=== PATIENT | female | born 1970 | race Caucasian/White ===

== ENCOUNTER → 2017-02-15 | Outpatient (CLI) | payer MEDICARE, MEDICAID, SELFPAY | PROVIDERS: Visit Provider Internal Medicine | DX: E11.51 Type 2 diabetes mellitus with diabetic peripheral angiopathy without gangrene (principal); E11.42 Type 2 diabetes mellitus with diabetic polyneuropathy; I10 Essential (primary) hypertension; I25.10 Atherosclerotic heart disease of native coronary artery without angina pectoris; N18.3 Chronic kidney disease, stage 3 (moderate); R60.1 Generalized edema | CPT/HCPCS: 36415; 80053; 80061; 81001; 83036; 87086 ==

== ENCOUNTER → 2017-08-05 | Outpatient (CLI) | payer MEDICARE, MEDICAID, SELFPAY | PROVIDERS: Visit Provider Internal Medicine | DX: I10 Essential (primary) hypertension (principal); E78.5 Hyperlipidemia, unspecified; N18.3 Chronic kidney disease, stage 3 (moderate); M54.2 Cervicalgia; R10.13 Epigastric pain | CPT/HCPCS: 36415; 72050; 80053; 80061; 82150; 83036; 85025 ==

== ENCOUNTER 2017-08-06 04:45 | Emergency (ER) | payer MEDICARE, MEDICAID, SELFPAY | END 2017-08-06 07:04 | disposition home or self-care (01) | PROVIDERS: Emergency Provider Emergency Medicine; Family Provider Internal Medicine; Visit Provider Emergency Medicine | DX: K29.00 Acute gastritis without bleeding (principal); N28.9 Disorder of kidney and ureter, unspecified; F17.210 Nicotine dependence, cigarettes, uncomplicated; E11.65 Type 2 diabetes mellitus with hyperglycemia; Z79.4 Long term (current) use of insulin; Z79.84 Long term (current) use of oral hypoglycemic drugs; I10 Essential (primary) hypertension; Z88.1 Allergy status to other antibiotic agents | CPT/HCPCS: 74176; 80053; 82150; 83605; 83690; 84484; 85025; 96360; 96365; 96374; 96375; 99284 ==

== ENCOUNTER → 2017-09-28 15:11 | Outpatient (CLI) | payer MEDICAID, SELFPAY ==
[2017-09-28 15:26] LABS: Microscopic, Urine URINE MICROSCOPIC (MICROSCOPIC)
[2017-09-28 15:42] LABS: Appearance,Urine CLEAR (Clear); Bilirubin,Urine Negative (Negative); Blood, Urine Negative (Negative); Color,Urine STRAW (Yellow); Glucose,Urine (UA) TRACE (Negative); Ketones,Urine Negative (Negative); Leukocyte Esterase,Urine Negative (Negative); Nitrate,Urine Negative (Negative); PH,Urine 5.5 (5.0-8.5); Protein,Urine 2+ (Negative); Specific Gravity, Urine 1.025 (1.005-1.030); Urobilinogen,Urine 0.2 EU/dl (0.2)
[2017-09-28 15:46] LABS: Basophils # 0.1 K/mm3 (0-0.2); Basophils % 1.1 % (0.1-2.0); Eosinophils # 0.2 K/mm3 (0.0-0.4); Eosinophils % 3.3 % (0.1-12.0); Hematocrit 33.6 % (37.0-47.0); Hemoglobin 10.7 g/dL (12.2-16.2); Lymphocytes # 1.6 K/mm3 (0.7-4.5); Lymphocytes % 33.1 K/mm3 (10-50); Mean Corpuscular HGB Conc 31.7 g/dL (31.8-35.4); Mean Corpuscular Hemoglobin 27.2 pg (27.0-31.2); Mean Corpuscular Volume 85.8 fl (81-99); Mean Platelet Volume 8.1 fl (7.4-10.4); Monocytes # 0.4 K/mm3 (0.1-1.0); Monocytes % 7.7 % (1.7-9.3); Neutrophils # 2.7 K/mm3 (1.8-7.8); Neutrophils % 54.7 % (37.0-80.0); Platelet Count 198 K/mm3 (142-424); Red Blood Count 3.92 M/mm3 (4.20-5.40); Red Cell Distribution Width 13.4 % (11.5-17.5); White Blood Count 4.9 K/mm3 (4.8-10.8)
[2017-09-28 16:39] LABS: Bacteria,Urine 2+ /lpf; Hyaline Casts,Urine Occasional #/lpf (0); Squamous Epithelial Cell,Urine 20-50 #/hpf (0-5); WBC,Urine Occasional #/hpf (0-3)
[2017-09-28 16:46] LABS: Total Protein,Urine Random 187.8 mg/dL (0.0-11.9)
[2017-09-28 17:20] LABS: Albumin Level 3.3 gm/dL (3.4-5.0); Anion Gap 17.5 mEq/L (5-15); Blood Urea Nitrogen 57 mg/dL (7-18); Calcium 8.5 mg/dL (8.5-10.1); Carbon Dioxide 18 mmol/L (21.0-32.0); Chloride 102 mmol/L (98-107); Creatinine,Serum 2.62 mg/dL (0.55-1.02); Estimated Glomerular Filt Rate 19 ml/min (>60); GFR (African American) 24 ML/MIN (>60); Glucose 296 mg/dL (74-106); Phosphorous 3.7 mg/dL (2.4-4.9); Potassium 5.5 mmoL/L (3.5-5.1); Sodium 132 mmol/L (136-145); Uric Acid 5.5 mg/dL (2.6-7.2)
[2017-09-30 09:17] LABS: Creatinine, Urine 109.1 mg/dL (Not Estab.)
[2017-09-30 17:02] LABS: Parathyroid Hormone Intact 42 pg/mL (15-65); Vitamin D 25 Hydroxy 31.4 ng/mL (30.0-100.0)
[2017-09-30 17:03] LABS: Microalbumin, Urine 1083.9 ug/mL (Not Estab.)
== END ==
PROVIDERS: PCP Internal Medicine Nephrology; Visit Provider Internal Medicine Nephrology
DX: N18.4 Chronic kidney disease, stage 4 (severe) (principal)
CPT/HCPCS: 36415; 80069; 81001; 82043; 82652; 83970; 84155; 84550; 85025; 87086

== ENCOUNTER → 2018-02-14 10:35 | Outpatient (CLI) | payer SELFPAY ==
[2018-02-14 12:31] LABS: Anion Gap 16.5 mEq/L (5-15); Blood Urea Nitrogen 62 mg/dL (7-18); Carbon Dioxide 26 mmol/L (21.0-32.0); Chloride 100 mmol/L (98-107); Creatinine,Serum 2.51 mg/dL (0.55-1.02); Estimated Glomerular Filt Rate 20 ml/min (>60); GFR (African American) 25 ML/MIN (>60); Glucose 200 mg/dL (74-106); Potassium 4.5 mmoL/L (3.5-5.1); Sodium 138 mmol/L (136-145)
== END ==
PROVIDERS: Visit Provider Internal Medicine
DX: E11.42 Type 2 diabetes mellitus with diabetic polyneuropathy (principal); E11.52 Type 2 diabetes mellitus with diabetic peripheral angiopathy with gangrene; N18.4 Chronic kidney disease, stage 4 (severe)
CPT/HCPCS: 36415; 80048; 83036

== ENCOUNTER 2024-01-24 05:51 | Emergency (ER) | payer OTHER, SELFPAY ==
[2024-01-24 05:52] VITALS: BP 167/81; PULSE 61; RESP 16; TEMP 36.6; O2SAT 98; BMI 20.7
--- NOTE | 2024-01-24 05:54 | HMH.EDGENADL ---
Discharge Plan Disposition Patient Disposition: Home, Self-Care Prescriptions Prescriptions: New clindamycin HCl 150 mg capsule 450 mg PO TID 7 Days Qty: 63 0RF Referrals Follow up/Referrals: Provider,Referral, MD [Primary Care Provider] - See instructions Activity Restrictions/Add. Instructions Additional Instructions/Restrictions: Please follow-up with your primary care provider and with dentistry. Take antibiotics as prescribed for treatment of possible dental infection. Please return to the emergency department if you develop any new or worsening symptoms or become concerned for your health. Clinical Impressions Clinical Impression: Dental infection, Acute facial pain, HTN (hypertension) Discharge ED Provider: Aman Lee General Adult HPI General Chief complaint: Dental/Oral Time Seen by Provider: 01/24/24 05:54 History of Present Illness HPI narrative: 53-year-old female with history of end-stage renal disease, diabetes, heart disease, chronic hypertension presents with worsening hypertension in the setting of dental pain. She reports that her right lower jaw/ear have been bothering her for the last 2 days. At the same time, her blood pressure has been higher and has not been coming down with her normal blood pressure medications. She has not taken her BP meds this morning, when she left the house she reports her blood pressure was in the 180s systolic, normally they are more like in the 140s for her. She denies any significant headache vision changes chest pain or shortness of breath. She is on Tuesday dialysis, has not yet had her dialysis today. Related Data Previous Rx's Medication Instructions Recorded clindamycin HCl 150 mg capsule 450 mg (3 x 150 mg) PO TID 7 days 01/24/24 #63 caps Allergies Allergy/AdvReac Type Severity Reaction Status Date / Time ciprofloxacin [From CIPRO] Allergy Intermediate I-RASH Unverified 09/06/17 14:59 lisinopril [LISINOPRIL] Allergy Intermediate I-ITCHING Unverified 09/06/17 14:59 morphine [MORPHINE] Allergy Intermediate I-ITCHING Unverified 09/06/17 14:59 [facility] Disclaimer: The information contained in this section may have been updated after the patient was seen, as this information can be updated by other users. Social History Smoking Status: Current every day smoker alcohol intake: never current occupational status: other Travel in the last 8 weeks: None ROS Obtained: Yes All systems reviewed & no additional complaints except as documented Physical Exam General General appearance: alert and in no apparent distress Head Head exam: atraumatic and normocephalic Eye Eye exam: Present normal appearance, PERRL and EOMI ENT ENT exam: Present normal oropharynx, TM's normal bilaterally, normal external ear exam and other (Posterior most right mandibular molar appears eroded, no surrounding fluctuance or significant erythema, it is tender to palpation) Neck Neck exam: Present normal inspection and full ROM Chest Chest inspection: Present normal inspection and symmetric chest wall rise; Absent tenderness Respiratory Respiratory exam: Present normal lung sounds bilaterally; Absent respiratory distress Cardiovascular Cardiovascular exam: Present regular rate and normal rhythm Abdominal Exam Abdominal exam: Present soft; Absent distention, tenderness or guarding Extremities Exam Extremities exam: Present normal inspection and other (Left upper extremity AV fistula); Absent edema or joint swelling Back Exam Back exam: Present normal inspection; Absent tenderness Neurological Exam Neurological exam: Present alert and oriented X3; Absent motor sensory deficit Psychiatric Psychiatric exam: Present normal affect and normal mood Skin Skin exam: Present warm, dry and normal color Lymphatic Lymphatic Findings: no adenopathy Medical Decision Making Medical Records Medical records reviewed: Yes I reviewed the patient's medical records. Skyler Inquiry Pt receiving controlled substance: No Skyler was queried for this patient: No Vital Signs: 01/24/24 05:52 01/24/24 06:25 Temperature 97.9 F 97.9 F Temperature Source Oral Oral Pulse Rate 62 Pulse Rate [Left] 61 Respiratory Rate 16 16 Blood Pressure 168/74 H Blood Pressure [Right Arm] 167/81 H Blood Pressure Mean [Right Arm] 109 Blood Pressure Source Automatic Cuff Blood Pressure Source [Right Arm] Automatic Cuff Blood Pressure Position Sitting Blood Pressure Position [Right Arm] Sitting 02 Sat by Pulse Oximetry 98 Oxygen Delivery Method Room Air Room Air Lab Data Lab results reviewed: Yes I reviewed the patient's lab results. Orders (Tests/Meds): ED MEDICATIONS Discontinued Medications Generic Name Dose Route Start Last Admin Trade Name Freq PRN Reason Stop Dose Admin Clindamycin HCl 300 mg 01/24/24 06:14 01/24/24 06:20 Clindamycin 150mg Capsule PO 01/24/24 06:15 300 mg ONCE ONE Administration Medical Decision Narrative: 53-year-old female with history of end-stage renal disease on TTS, chronic hypertension, diabetes, coronary artery disease presents with right mandibular facial pain for the last few days, coincides with worsening blood pressure at home.. History was obtained interactive discussion with patient, family. On arrival, patient is [afebrile, hemodynamically stable, satting appropriately, alert, oriented x4, GCS 15], moving all extremities spontaneously. Full physical exam performed and significant for right posterior mandibular molar tender to palpation without surrounding evidence of abscess or cellulitis, blood pressure in the 160s systolic on arrival. Differential includes but is not limited to hypertensive urgency, hypertensive emergency, chronic hypertension, dental infection, ear infection,. Blood work, EKG, CT head, urine studies were considered in the setting of reported severe hypertension, but deemed unnecessary due to mild asymptomatic hypertension on arrival. Given patient history, exam and workup, patient's presentation most likely represents a developing dental infection, with the resulting pain producing worsening hypertension. I had extensive discussion with patient regarding her presentation. No indication of emergent hypertension at this time. Patient was given clindamycin in the ED for treatment of likely dental infection, she will follow-up with her PCP and with dentistry. Patient discharged with prescription for clindamycin. She will pick it up after going to dialysis today. Procedures Risk/Benefits of Procedure(s) Were Explained: Yes Critical Care Critical Care Time Critical Care Time: No
--- NOTE | 2024-01-24 06:04 | ECG_ITS ---
APPROVED REPORT Exam: Resting ECG HR:57 bpm ECG Measurements Heart Rate 57 AXES AZ 142 P 35 QRSd 114 QRS 122 QT 450 T -2 QTc 443 Conclusion SINUS BRADYCARDIA WITH OCCASIONAL VENTRICULAR PREMATURE COMPLEXES POSSIBLE RIGHT VENTRICULAR HYPERTROPHY [SOME/ALL OF: PROMINENT R IN V1, LATE TRANSITION, RAD, TONY, SSS] NONSPECIFIC T-WAVE ABNORMALITY ABNORMAL ECG UNCONFIRMED REPORT Electronically signed by : LARISSA EDWARDS, 01/25/2024 05:19:31
[2024-01-24] MEDS: CLINDAMYCIN 150MG CAPSULE 300 MG PO (06:20)
[2024-01-24 06:25] VITALS: BP 168/74; PULSE 62; RESP 16; TEMP 36.6; O2SAT 98
== END 2024-01-24 06:16 | disposition home or self-care (01) ==
LOC: ER 06:17
PROVIDERS: Emergency Provider Emergency Medicine
DX: K04.7 Periapical abscess without sinus (principal); I10 Essential (primary) hypertension; R94.31 Abnormal electrocardiogram [ECG] [EKG]; R68.84 Jaw pain; F17.210 Nicotine dependence, cigarettes, uncomplicated
CPT/HCPCS: 93005; 99283

== ENCOUNTER 2024-02-02 10:15 | Emergency (ER) | payer OTHER, MEDICAID, SELFPAY ==
[2024-02-02] VITALS (15 sets, daily range): BP systolic 177–197; BP diastolic 68–93; PULSE 52–70; RESP 11–21; TEMP 36.6–36.7; O2SAT 91–98; BMI 20.5
--- NOTE | 2024-02-02 10:19 | PC.NURSE ---
PT WAS GIVEN A WARM BLANKET
--- NOTE | 2024-02-02 10:21 | ECG_ITS ---
APPROVED REPORT Exam: Resting ECG HR:56 bpm ECG Measurements Heart Rate 56 AXES TN 137 P 71 QRSd 118 QRS 97 QT 434 T -42 QTc 425 Conclusion SINUS BRADYCARDIA BORDERLINE RIGHT AXIS DEVIATION [QRS AXIS > 90] MODERATE INTRAVENTRICULAR CONDUCTION DELAY [110+ ms QRS DURATION] ST DEVIATION AND MODERATE T-WAVE ABNORMALITY, CONSIDER INFERIOR ISCHEMIA [-0.1+ mV T-WAVE IN II/aVF] Electronically signed by : SERVANDO WEINSTEIN, 02/02/2024 15:44:43
--- NOTE | 2024-02-02 10:22 | XR_ITS ---
FINAL REPORT CLINICAL HISTORY: chest pain, soa FINDINGS: A single portable view of the chest was obtained. There is cardiomegaly. The patient is status post median sternotomy. There is mild pulmonary vascular congestion. There are bibasilar opacities which may represent atelectasis or pneumonia. Small bilateral pleural effusions are noted. There is no pneumothorax. IMPRESSION: Bibasilar opacities may represent atelectasis or pneumonia with small bilateral pleural effusions. Reviewed, Interpreted and Dictated by Romaine Gonzales III, MD Transcribed by Bouchra Nguyễn Authenticated and [facility]
--- NOTE | 2024-02-02 10:36 | HMH.EDCP ---
Discharge Plan Disposition Patient Disposition: Xfer Short-Term Hosp Condition: Fair Prescriptions Prescriptions: No Action clindamycin HCl 150 mg capsule 450 mg PO TID 7 Days Qty: 63 0RF Referrals Follow up/Referrals: Provider,Referral, MD [Primary Care Provider] - See instructions Clinical Impressions Clinical Impression: Hypertensive urgency, Acute hypokalemia Stand Alone Forms Stand Alone Forms: Transfer Record - ED Discharge ED Provider: Matt Hooks HPI General Chief Complaint: Chest Pain Stated Complaint: chest pain Time Seen by Provider: 02/02/24 10:22 Mode of Arrival: Wheelchair Source of Information: Patient and Spouse Limitations: No Limitations Description of Symptoms (Recalled from ER Triage Doc. by RN): chest pressure x3 days. dialysis pt. History of Present Illness HPI narrative: 53-year-old female history of hypertension, hyperlipidemia, diabetes, ESRD on Tuesday dialysis, CAD status post stenting presenting with chest pressure. States that this been going on for couple of days at this point, no fevers, chills, nausea, vomiting, diaphoresis, but she is feeling short of breath. No PND or orthopnea. No worsening lower extremity swelling. States that she has had pleural effusion drained a couple times in the past, unsure if that is related. Chest pressure does not radiate, not made better or worse by anything in particular. Last got dialysis today, 02/01 and had full session without issue. Has not taken any of her medications including beta-katy, calcium channel katy, hydralazine, among others. Please note that above description of symptoms, in this electronic medical record under categorization of recalled from ER triage doctor by RN are reflective of an initial nursing assessment, however, is not reflective of my full history and physical exam that was personally taken and clarified. Consequentially, this preceding description of symptoms, which may include the patient's categorized chief complaint in the EMR, do not reflect my personal clinical impression, and the ultimate description of history of present illness and patient stated complaints should be deferred to this section of the note. Unless stated otherwise or congruent with this section of the note, additional signs, symptoms, or incongruence should be interpreted as inaccurate with my clinical impression. Related Data Previous Rx's Medication Instructions Recorded clindamycin HCl 150 mg capsule 450 mg (3 x 150 mg) PO TID 7 days 01/24/24 #63 caps Allergies Allergy/AdvReac Type Severity Reaction Status Date / Time insulin glargine Allergy Intermediate Numbness Verified 02/02/24 10:40 [From Elsa Macario U-100 Insulin] lisinopril [LISINOPRIL] Allergy Intermediate I-ITCHING Verified 02/02/24 10:39 [facility] Disclaimer: The information contained in this section may have been updated after the patient was seen, as this information can be updated by other users. Social History (Updated 01/24/24 @ 06:40 by Aman Lee MD) Smoking Status: Current every day smoker alcohol intake: never current occupational status: other Travel in the last 8 weeks: None ROS Obtained: Yes All systems reviewed & no additional complaints except as documented Physical Exam General General appearance: alert Neck Neck exam: Present trachea midline Chest Chest inspection: Present normal inspection and symmetric chest wall rise Respiratory Respiratory exam: Present normal lung sounds bilaterally; Absent respiratory distress, wheezes, stridor, accessory muscle use or prolonged expiratory phase Cardiovascular Cardiovascular exam: Present regular rate, normal rhythm and systolic murmur Extremities Exam Extremities exam: Absent edema Neurological Exam Neurological exam: Present alert, oriented X3 and CN II-XII intact Skin Skin exam: Present warm and dry; Absent cyanosis, diaphoresis or pallor HEART Score HEART Score HEART Score assessment performed?: Yes HEART Score: 3 Procedures Limited Ultrasound Indication:: Limited cardiac ultrasound Indication: Chest pressure Identified cardiac views: -Cardiac parasternal long axis -Cardiac parasternal short axis Findings: -Cardiac activity present -Gross wall motion normal -Pericardial effusion absent -Right heart strain absent Impression: -Normal cardiac ultrasound with EPSS 3 mm Images were saved to permanent archive The study was technically adequate CPT: 37940 This study was performed by me, and I personally interpreted all images/videos. Based on my clinical judgement, these images were adequate and did not necessitate further imaging. Critical Care Critical Care Time Critical Care Time: No Medical Decision Making Medical Records Medical records reviewed: Yes I reviewed the patient's medical records. Skyler Inquiry Pt receiving controlled substance: No Skyler was queried for this patient: No Vital Signs Vital Signs: 02/02/24 10:16 02/02/24 10:23 02/02/24 10:29 Temperature 97.9 F Temperature Source Oral Pulse Rate 59 L 58 L Pulse Rate [Right] 66 Respiratory Rate 18 13 12 Blood Pressure 195/77 H 196/80 H Blood Pressure [Right Arm] 197/77 H Blood Pressure Mean [Right Arm] 117 02 Sat by Pulse Oximetry 94 L 96 97 Oxygen Delivery Method Room Air Room Air Room Air 02/02/24 10:46 02/02/24 10:55 02/02/24 11:00 Temperature Temperature Source Pulse Rate 59 L 60 62 Pulse Rate [Right] Respiratory Rate 15 16 18 Blood Pressure 197/79 H 193/77 H 191/78 H Blood Pressure [Right Arm] Blood Pressure Mean [Right Arm] 02 Sat by Pulse Oximetry 96 96 96 Oxygen Delivery Method Room Air Room Air Room Air 02/02/24 11:30 02/02/24 12:00 02/02/24 12:30 Temperature Temperature Source Pulse Rate 65 65 70 Pulse Rate [Right] Respiratory Rate 19 17 17 Blood Pressure 187/93 H 190/79 H 186/80 H Blood Pressure [Right Arm] Blood Pressure Mean [Right Arm] 02 Sat by Pulse Oximetry 94 L 98 97 Oxygen Delivery Method Room Air Room Air Room Air 02/02/24 13:00 02/02/24 13:30 02/02/24 14:00 Temperature Temperature Source Pulse Rate 58 L 60 60 Pulse Rate [Right] Respiratory Rate 11 L 18 15 Blood Pressure 189/75 H 195/77 H 194/81 H Blood Pressure [Right Arm] Blood Pressure Mean [Right Arm] 02 Sat by Pulse Oximetry 98 98 97 Oxygen Delivery Method Room Air Room Air Room Air 02/02/24 14:30 Temperature Temperature Source Pulse Rate 63 Pulse Rate [Right] Respiratory Rate 21 Blood Pressure 177/68 H Blood Pressure [Right Arm] Blood Pressure Mean [Right Arm] 02 Sat by Pulse Oximetry 91 L Oxygen Delivery Method Room Air Lab Data Labs: Lab Results 02/02/24 10:30: WBC 2.8 L, RBC 3.52 L, Hgb 10.7 L, Hct 35.3 L, MCV 100.5 H, MCH 30.4, MCHC 30.2 L, RDW 15.9, Plt Count 71 L, MPV 11.0 H, Neut % (Auto) 53.7, Lymph % (Auto) 32.5, Beadle % (Auto) 8.3, Eos % (Auto) 4.1, Baso % (Auto) 1.3, Neut # (Auto) 1.5 L, Lymph # (Auto) 0.9, Beadle # (Auto) 0.2, Eos # (Auto) 0.1, Baso # (Auto) 0.0, Sodium 140, Potassium 3.0 L, Chloride 100, Carbon Dioxide 31 H, Anion Gap 12.0, BUN 21 H, Creatinine 2.00 H, Estimated Creat Clear 30, Estimated GFR 26 L, Est GFR ( Amer) 31 L, Glucose 90, Calcium 8.7, Total Bilirubin 0.4, AST 23, ALT 11 L, Alkaline Phosphatase 68, Troponin I 0.03, NT-Pro-B Natriuret Pep 99193 H, Total Protein 6.5, Albumin 3.7, Globulin 2.8, Albumin/Globulin Ratio 1.3 02/02/24 13:10: Troponin I 0.02 02/02/24 10:30 02/02/24 10:30 Response Orders (Tests/Meds): ED MEDICATIONS Discontinued Medications Generic Name Dose Route Start Last Admin Trade Name Freq PRN Reason Stop Dose Admin Aspirin 324 mg 02/02/24 10:22 02/02/24 10:42 Aspirin 81mg Chewable Tablet PO 02/02/24 10:23 324 mg ONCE ONE Administration Hydralazine HCl 20 mg 02/02/24 10:32 02/02/24 10:42 Hydralazine 20mg/Ml Vial IV 02/02/24 10:33 20 mg ONCE ONE Administration Potassium Chloride 40 meq 02/02/24 10:54 02/02/24 10:57 Potassium Chloride 20meq Tab PO 02/02/24 10:55 40 meq ONCE ONE Administration ORDERS Category Date Time Status CXR --portable [XR chest portable] Stat Exams 02/02/24 10:22 Completed POCUS Point of Care (ER Only) Stat Exams 02/02/24 10:32 Completed CBC w/Auto Diff [Complete Blood Count Auto Diff] Stat Lab 02/02/24 10:30 Completed CMP [Comprehensive Metabolic Panel] Stat Lab 02/02/24 10:30 Completed NT Pro Brain Natriuretic Pep. Stat Lab 02/02/24 10:30 Completed Trop I [Troponin I] Stat Lab 02/02/24 10:30 Completed Troponin I Q3H Lab 02/02/24 13:10 Completed Troponin I Q3H Lab 02/02/24 16:30 Ordered MDM Narrative Medical Decision Narrative: 53-year-old female history of hypertension, hyperlipidemia, diabetes, ESRD on Tuesday dialysis, CAD status post stenting presenting with chest pressure. States that this been going on for couple of days at this point, no fevers, chills, nausea, vomiting, diaphoresis, but she is feeling short of breath. No PND or orthopnea. No worsening lower extremity swelling. States that she has had pleural effusion drained a couple times in the past, unsure if that is related. Chest pressure does not radiate, not made better or worse by anything in particular. Last got dialysis today, 02/01 and had full session without issue. Has not taken any of her medications including beta-katy, calcium channel katy, hydralazine, among others. . History was obtained via conversation with patient. On arrival, patient hemodynamically stable, alert, oriented x4, appropriate, GCS 15, moving all extremities spontaneously, pupils equal and reactive to light. Full physical exam performed and significant for chronically ill-appearing woman who is in no acute distress. She does have bilateral diffuse wheezes without focally decreased breath sounds. Right upper sternal border systolic ejection murmur. Heart sounds are clearly auscultated, no lower extremity edema, no JVD, pulses equal and symmetric. Upper extremity fistula in place with palpable thrill. Differential includes ACS, IA, effusion, tamponade, dissection, CHF, PE, electrolyte abnormality, pneumothorax, pneumonia, among others. Patient was given 324 mg aspirin, 20 mg hydralazine IV (declined nitroglycerin) for symptomatic management and correction of underlying abnormalities. Patient given hydralazine for blood pressure control without much effect. Calcium and beta-blockers were avoided secondary to bradycardia. Patient declined nitroglycerin. Workup independently interpreted and significant for pancytopenia, patient states this is normal for her. Patient's potassium 3.0, this was repleted orally 40 mEq. Creatinine 2.0, BUN 21. BUN is 47,000, troponin negative, delta troponin also negative. See radiology read for full review of final results. Independent interpretation of EKG shows sinus bradycardia about 56 beats a minute. T wave inversions V6, 3, aVF without reciprocal change. Prolonged VA interval at 137 ms, QRS 118 ms, QTc 425 ms. Patient placed on continuous cardiac monitoring and continuous pulse ox with initial blood pressure 200/77, heart rate 66, saturation 94 on room air. On reevaluation, patient still feeling generally poorly. Patient uncomfortable going home, does not have follow-up here in [place] because she is generally living in [place]. Does not have stable follow-up with nephrology or with cardiology. [facility] was contacted in regard to this and hypertensive urgency and the need for medical reconciliation and follow-up care. They graciously excepted transfer. Because patient high risk for clinical decompensation if discharged, deemed appropriate for transfer and inpatient admission. Results were relayed to patient who voiced understanding and patient was agreeable to transfer, inpatient admission, and management. Patient was graciously accepted and transferred to [facility] for further definitive management, under Dr. Becker. Car Sealer disclaimer Much of this encounter note is an electronic seismometer operator spoken language to printed text. Electronic seismometer operator of the spoken language may permit errors. Although I have reviewed the note, some errors may still exist.
[2024-02-02 10:41] LABS: Basophils % 1.3 % (0.1-2.0); Eosinophils # 0.1 K/mm3 (0.0-0.4); Eosinophils % 4.1 % (0.1-12.0); Hematocrit 35.3 % (37.0-47.0); Hemoglobin 10.7 g/dL (12.2-16.2); Lymphocytes # 0.9 K/mm3 (0.7-4.5); Lymphocytes % 32.5 % (10-50); Mean Corpuscular HGB Conc 30.2 g/dL (31.8-35.4); Mean Corpuscular Hemoglobin 30.4 pg (27.0-31.2); Mean Corpuscular Volume 100.5 fl (81-99); Monocytes # 0.2 K/mm3 (0.1-1.0); Monocytes % 8.3 % (1.7-9.3); Neutrophils # 1.5 K/mm3 (1.8-7.8); Neutrophils % 53.7 % (37.0-80.0); Platelet Count 71 K/mm3 (142-424); Red Blood Count 3.52 M/mm3 (4.20-5.40); Red Cell Distribution Width 15.9 % (11.5-17.5); White Blood Count 2.8 K/mm3 (4.8-10.8)
[2024-02-02] MEDS: ASPIRIN 81MG CHEWABLE TABLET 324 MG PO (10:42)
[2024-02-02] MEDS: HYDRALAZINE 20MG/ML VIAL 20 MG IV (10:42)
[2024-02-02 10:44] LABS: Chloride 100 mmol/L (98-107)
[2024-02-02 10:45] LABS: Sodium 140 mmol/L (136-145)
[2024-02-02 10:47] LABS: Alanine Aminotransferase 11 U/L (12-78); Alkaline Phosphatase 68 U/L (38-126); Aspartate Amino Transferase 23 U/L (14-36); Bilirubin,Total 0.4 mg/dl (0.2-1.3); Blood Urea Nitrogen 21 mg/dl (7-17); Creatinine Clearance Estimated 30 mL/min (50-200); Estimated Glomerular Filt Rate 26 ml/min (>60); GFR (African American) 31 ML/MIN (>60)
[2024-02-02 10:48] LABS: Albumin Level 3.7 g/dl (3.5-5.0); Albumin/Globulin Ratio 1.3 (1.1-1.8); Calcium 8.7 mg/dl (8.4-10.2); Carbon Dioxide 31 mmol/L (22.0-30.0); Globulin 2.8 g/dL (1.3-3.2); Glucose 90 mg/dl (74-100); Total Protein,Serum 6.5 g/dl (6.3-8.2)
--- NOTE | 2024-02-02 10:50 | PC.NURSE ---
Dr. Hooks notified of Potassium 3.0
[2024-02-02] MEDS: POTASSIUM CHLORIDE 20MEQ TAB 40 MEQ PO (10:57)
[2024-02-02 10:59] LABS: Troponin I 0.03 ng/ml (0.00-0.034)
--- NOTE | 2024-02-02 11:07 | PC.NURSE ---
Pt asking for something to eat & drink, stated that was ok, and I called dietary for a lunch tray
[2024-02-02 11:27] LABS: NT Pro Brain Natriuretic Pep. 47200 pg/mL (0-125)
[2024-02-02 13:46] LABS: Troponin I 0.02 ng/ml (0.00-0.034)
--- NOTE | 2024-02-02 15:24 | PC.NURSE ---
Called report to - [facility] 4 Christiana MURRELL RN. Called [facility] to let them know she is ready to be transferred.
--- NOTE | 2024-02-02 15:35 | PC.NURSE ---
rounded on pt. expressed no needs at this time.
== END 2024-02-02 15:57 | disposition short-term general hospital (02) ==
PROVIDERS: Emergency Provider Emergency Medicine
DX: E87.6 Hypokalemia (principal); I16.0 Hypertensive urgency; R00.1 Bradycardia, unspecified; R07.9 Chest pain, unspecified; N18.6 End stage renal disease; E11.22 Type 2 diabetes mellitus with diabetic chronic kidney disease; I11.9 Hypertensive heart disease without heart failure; I25.10 Atherosclerotic heart disease of native coronary artery without angina pectoris; E78.5 Hyperlipidemia, unspecified; Z99.2 Dependence on renal dialysis; F17.210 Nicotine dependence, cigarettes, uncomplicated
CPT/HCPCS: 71045; 80053; 83880; 84484; 85025; 93005; 96374; 99285

== ENCOUNTER 2024-04-14 20:02 | Emergency (ER) | payer OTHER, SELFPAY ==
--- NOTE | 2024-04-14 | CT_ITS ---
PROCEDURE INFORMATION: Exam: CT Chest Without Contrast; Diagnostic Exam date and time: 04/14/2024 10:23 PM Age: 53 years old Clinical indication: Shortness of breath; Additional info: Done due to limited pe chest TECHNIQUE: Imaging protocol: Diagnostic computed tomography of the chest without contrast. Radiation optimization: All CT scans at this facility use at least one of these dose optimization techniques: automated exposure control; mA and/or kV adjustment per patient size (includes targeted exams where dose is matched to clinical indication); or iterative reconstruction. COMPARISON: CT ANGIO CHEST PE PROTOCOL 04/14/2024 9:46 PM FINDINGS: Lungs: There is basilar interlobular septal thickening. Diffuse bronchial wall thickening noted. There is thickening of the fissures. Mosaic ground-glass attenuation noted throughout each lung. Pleural spaces: Non loculated right pleural effusion. No pneumothorax on either side. Heart: Moderate cardiac enlargement. Mediastinal surgical clips and vascular markers suggest prior myocardial revascularization. Coronary arteries: Extensive coronary artery hyperdensity could be calcification and/or stent material. Lymph nodes: No enlarged lymph nodes. Vasculature: Calcified aorta without dilation. Enlarged main pulmonary artery trunk measures 3.8 cm in diameter. Bones/joints: Healed median sternotomy. No acute bony abnormality. Soft tissues: Mild body wall edema. IMPRESSION: 1. Constellation of findings is compelling for heart failure. 2. Enlarged main pulmonary artery trunk suggests chronic PA hypertension.
[2024-04-14 20:13] VITALS: BP 151/59; PULSE 63; O2SAT 97
[2024-04-14 20:16] VITALS: BP 151/59; PULSE 62; RESP 15; TEMP 36.8; O2SAT 96; BMI 20.3
--- NOTE | 2024-04-14 20:19 | ECG_ITS ---
APPROVED REPORT Exam: Resting ECG HR:64 bpm ECG Measurements Heart Rate 64 AXES PA 144 P 68 QRSd 114 QRS 95 QT 409 T 95 QTc 419 Conclusion SINUS RHYTHM BORDERLINE RIGHT AXIS DEVIATION [QRS AXIS > 90] MODERATE INTRAVENTRICULAR CONDUCTION DELAY ST DEVIATION AND MODERATE T-WAVE ABNORMALITY, CONSIDER LATERAL ISCHEMIA Electronically signed by : SIGIFREDO ZARAGOZA, 04/14/2024 21:11:02
--- NOTE | 2024-04-14 20:19 | CT_ITS ---
PROCEDURE INFORMATION: Exam: CTA Chest With Contrast Exam date and time: 04/14/2024 9:46 PM Age: 53 years old Clinical indication: Shortness of breath; Additional info: SOA, dialysis PT, hemoptysis, weakness, cough TECHNIQUE: Imaging protocol: Computed tomographic angiography of the chest with contrast. Exam focused on the arteries. 3D rendering (Not supervised by radiologist): MIP and/or 3D reconstructed images were created by the technologist. Radiation optimization: All CT scans at this facility use at least one of these dose optimization techniques: automated exposure control; mA and/or kV adjustment per patient size (includes targeted exams where dose is matched to clinical indication); or iterative reconstruction. Contrast material: ISOUVE 370; Contrast volume: 70 ml; Contrast route: INTRAVENOUS (IV); COMPARISON: CT ANGIO CHEST PE PROTOCOL 04/14/2024 9:46 PM FINDINGS: Tubes, catheters and devices: A large portion of the chest is outside of the field of view. Pulmonary arteries: Attenuation coefficient in the main pulmonary artery is 49 Hounsfield units, suboptimal. Pulmonary embolism cannot be excluded. Aorta: Unremarkable. No aortic aneurysm. No aortic dissection. Lungs: Visualized portions the lungs demonstrate basilar interlobular septal thickening and ground-glass opacity with diffuse bronchial wall thickening. Pleural spaces: Non loculated right pleural effusion. Left pleural effusion is not excluded. No pneumothorax on either side. Heart: Heart is moderately enlarged. Coronary arteries: Extensive coronary artery hyperdensity could be calcification and/or stent material. Lymph nodes: Unremarkable. No enlarged lymph nodes. Bones/joints: Healed median sternotomy. Soft tissues: Unremarkable. IMPRESSION: Exam is limited by suboptimal contrast bolus and centering. Findings in the field of view are compelling for heart failure.
--- NOTE | 2024-04-14 20:25 | HMH.EDGENADL ---
Discharge Plan Disposition Patient Disposition: Xfer Short-Term Hosp Condition: Fair Chief Complaint: Weakness Prescriptions Prescriptions: No Action levothyroxine 75 mcg capsule 75 mcg PO DAILY isosorbide mononitrate 60 mg tablet extended release 24 hr 60 mg PO DAILY clopidogrel 75 mg tablet 75 mg PO DAILY pantoprazole 20 mg tablet,delayed release (DR/EC) 20 mg PO DAILY aspirin 325 mg tablet 325 mg PO DAILY doxazosin 2 mg tablet 2 mg PO BID ezetimibe 10 mg tablet 10 mg PO DAILY clonidine HCl 0.1 mg tablet 0.1 mg PO BID valsartan 80 mg tablet 80 mg PO BID oxycodone-acetaminophen 10-325 mg tablet 1 tab PO Q6H PRN (Reason: pain) Qty: 120 0RF hydralazine 50 mg tablet 50 mg PO Q3H carvedilol 25 mg Tablet 25 mg PO BID Rx Instructions: must administer with a meal/food Referrals Follow up/Referrals: Osmani Becker MD [Primary Care Provider] - See instructions Clinical Impressions Clinical Impression: Cardiomegaly, Pleural effusion, End-stage renal disease (ESRD), Hemoptysis, Anemia, Leukopenia Stand Alone Forms Stand Alone Forms: Transfer Record - ED Print Language Print Language: Puerto Rican Discharge ED Provider: Saira Domingo General Adult HPI <Saira Domingo MD - Last Filed: 04/14/24 23:36> General Chief complaint: Weakness Stated complaint: yash, SOA Time Seen by Provider: 04/14/24 20:09 Mode of Arrival: Wheelchair Source of Information: Patient Limitations: No Limitations Description of Symptoms (Recalled from ER Triage Doc. by RN): 53 yo female presents with cc of sinus congestion that has progressed to chest congestion. vss. afebrile. ESRD patient with scheduled dialysis t//tue and missed her dialysis today because she felt so poorly. History of Present Illness HPI narrative: Patient is a 53-year-old female with past medical history CAD status post stent and bypass, hypertension, diabetes, ESRD on dialysis presenting with cough and congestion. She states that for the past month she has had weakness with some cough and congestion, worsened over the past week and then most recently over the past couple of days she has had hemoptysis. Denies any history of prior similar symptoms. Denies any known fevers. She does state that she was supposed to attend dialysis today but missed her appointment as she felt so poorly. She does note that her edema has also been worsening and she has not been able to eat well due to her symptoms. Related Data Home Medications ?Medication ?Instructions ?Recorded ?Confirmed aspirin 325 mg tablet 325 mg PO DAILY 03/07/24 04/15/24 clonidine HCl 0.1 mg tablet 0.1 mg PO BID 03/07/24 04/04/24 clopidogrel 75 mg tablet 75 mg PO DAILY 03/07/24 04/15/24 doxazosin 2 mg tablet 2 mg PO BID 03/07/24 04/15/24 ezetimibe 10 mg tablet 10 mg PO DAILY 03/07/24 04/15/24 isosorbide mononitrate 60 mg 60 mg PO DAILY 03/07/24 04/15/24 tablet,extended release 24 hr levothyroxine 75 mcg capsule 75 mcg PO DAILY 03/07/24 04/15/24 pantoprazole 20 mg tablet,delayed 20 mg PO DAILY 03/07/24 04/15/24 release valsartan 80 mg tablet 80 mg PO BID 03/07/24 04/15/24 hydralazine 50 mg tablet 50 mg PO Q3H 04/13/24 04/15/24 carvedilol 25 mg tablet 25 mg PO BID 04/15/24 04/15/24 Previous Rx's ?Medication ?Instructions ?Recorded oxycodone-acetaminophen 10 mg-325 1 tab PO Q6H PRN pain #120 tabs 04/04/24 mg tablet Allergies Allergy/AdvReac Type Severity Reaction Status Date / Time insulin glargine Allergy Intermediate Numbness Verified 04/04/24 13:25 [From Basaglar Renaldo U-100 Insulin] lisinopril [LISINOPRIL] Allergy Intermediate I-ITCHING Verified 04/04/24 13:25 REPLACED BY [facility] <Saira Domingo MD - Last Filed: 04/14/24 23:36> REPLACED BY [facility] Disclaimer: The information contained in this section may have been updated after the patient was seen, as this information can be updated by other users. Medical History (Updated 04/15/24 @ 00:46 by Estefania Ball MD) HTN (hypertension) Social History Smoking Status: Former smoker alcohol intake: never current occupational status: other Travel in the last 8 weeks: None <Saira Domingo MD - Last Filed: 04/14/24 23:36> ROS Obtained: Yes Systems reviewed as appropriate & no additional complaints except as documented Physical Exam <Saira Domingo MD - Last Filed: 04/14/24 23:36> General General appearance: alert, in no apparent distress and cachectic Head Head exam: atraumatic and normocephalic Eye Eye exam: Present PERRL and EOMI Chest Chest inspection: Present normal inspection and symmetric chest wall rise Respiratory Respiratory exam: Present normal lung sounds bilaterally; Absent respiratory distress Cardiovascular Cardiovascular exam: Present regular rate and normal rhythm Abdominal Exam Abdominal exam: Present soft and tenderness (Mildly tender throughout without rebound or guarding) Extremities Exam Extremities exam: Present normal inspection and other (Bilateral lower extremity edema, fistula in place over left forearm with palpable thrill) Neurological Exam Neurological exam: Present alert and oriented X3 Skin Skin exam: Present warm and dry Medical Decision Making <Saira Domingo MD - Last Filed: 04/14/24 23:36> Medical Records Medical records reviewed: Yes I reviewed the patient's medical records. Skyler Inquiry Pt receiving controlled substance: No Vital Signs: 04/14/24 20:13 04/14/24 20:16 04/14/24 21:14 Temperature 98.2 F Temperature Source Oral Pulse Rate 63 65 Pulse Rate [Right Brachial] 62 Respiratory Rate 15 Blood Pressure 151/59 H Blood Pressure [Right Arm] 151/59 H Blood Pressure Mean Blood Pressure Mean [Right Arm] 89 Blood Pressure Source [Right Arm] Automatic Cuff Blood Pressure Position [Right Arm] Sitting 02 Sat by Pulse Oximetry 97 96 Oxygen Delivery Method Room Air 04/15/24 00:34 Temperature Temperature Source Pulse Rate 69 Pulse Rate [Right Brachial] Respiratory Rate Blood Pressure 167/58 H Blood Pressure [Right Arm] Blood Pressure Mean 94 Blood Pressure Mean [Right Arm] Blood Pressure Source [Right Arm] Blood Pressure Position [Right Arm] 02 Sat by Pulse Oximetry 97 Oxygen Delivery Method Room Air Lab Data Lab results reviewed: Yes I reviewed the patient's lab results. Lab Results 04/14/24 20:20: Chlamy pneumoniae PCR Not detected, Adenovirus (PCR) Not detected, B. pertussis DNA (PCR) Not detected, Coronavirus OC43 (PCR) Not detected, Coronavirus HKU1 (PCR) Not detected, Coronavirus 229E (PCR) Not detected, SARS-CoV-2 (PCR) Not detected, Coronavirus NL63 (PCR) Not detected, Human Metapneumovir PCR Not detected, Influenza A (H1) PCR Not detected, Influ A (H1N1/09) PCR Not detected, Influenza A (H3) PCR Not detected, Influenza Type A (PCR) Not detected, Influenza Type B (PCR) Not detected, M. pneumoniae (PCR) Not detected, Parainfluenza 1 (PCR) Not detected, Parainfluenza 2 (PCR) Not detected, Parainfluenza 3 (PCR) Not detected, Parainfluenza 4 (PCR) Not detected, RSV (PCR) Not detected, Entero/Rhino (PCR) Not detected 04/14/24 20:40: WBC 3.0 L, RBC 2.53 L, Hgb 8.4 L, Hct 27.3 L, MCV 107.9 H, MCH 33.0 H, MCHC 30.6 L, RDW 14.6, Plt Count 70 L, MPV 10.0, Neut % (Auto) 64.7, Lymph % (Auto) 19.4, Mcmullen % (Auto) 11.2 H, Eos % (Auto) 3.7, Baso % (Auto) 1.0, Neut # (Auto) 2.0, Lymph # (Auto) 0.6 L, Mcmullen # (Auto) 0.3, Eos # (Auto) 0.1, Baso # (Auto) 0.0, PT 11.4, INR 1.02, APTT 27.8, Sodium 137, Potassium 4.6, Chloride 98, Carbon Dioxide 29, Anion Gap 14.6, BUN 60 H, Creatinine 4.00 H, Estimated Creat Clear 15, Estimated GFR 12 L*, Est GFR ( Amer) 14 L*, Glucose 132 H, Calcium 9.1, Total Bilirubin 0.5, AST 21, ALT 10 L, Alkaline Phosphatase 68, Troponin I 0.03, NT-Pro-B Natriuret Pep 97498 H, Total Protein 6.5, Albumin 4.0, Globulin 2.5, Albumin/Globulin Ratio 1.6 04/14/24 20:40 04/14/24 20:40 Orders (Tests/Meds): ED MEDICATIONS Generic Name Dose Route Start Last Admin Trade Name Freq PRN Reason Stop Dose Admin Hydralazine HCl 50 mg 04/15/24 00:42 Hydralazine Hcl 25mg Tablet PO 04/15/24 00:43 ONCE ONE Sodium Chloride 10 ml 04/14/24 20:19 Sodium Chloride 0.9% 10ml Flush Syringe IV 05/14/24 20:18 NEEDED PRN Maintain IV Site Sodium Chloride 10 ml 04/14/24 22:27 04/14/24 22:29 Sodium Chloride 0.9% 10ml Syr (Rad Only) IV 05/14/24 22:26 10 ml NEEDED PRN Administration Maintain IV Site Discontinued Medications Generic Name Dose Route Start Last Admin Trade Name Freq PRN Reason Stop Dose Admin Albuterol/Ipratropium 3 ml 04/14/24 20:19 04/14/24 20:53 Ipratropium/Albuterol 3 Ml Neb IH 04/14/24 20:20 3 ml ONCE ONE Administration Iopamidol 70 ml 04/14/24 22:27 04/14/24 22:29 Iopamidol-370 (76%);100ml Bottle IV 04/14/24 22:28 70 ml ONCE ONE Administration Sodium Chloride 50 ml 04/14/24 22:27 04/14/24 22:29 0.9 % Sodium Chloride 50 Ml Vial IV 04/14/24 22:28 50 ml ONCE ONE Administration ORDERS Category Date Time Status CT chest wo con Routine Cat Scan 04/14/24 Completed CTA Chest [CT angio chest PE protocol] Stat Cat Scan 04/14/24 20:19 Completed Activated Partial Thrombo Time Stat Lab 04/14/24 20:40 Completed Complete Blood Count Auto Diff Stat Lab 04/14/24 20:40 Completed Comprehensive Metabolic Panel Stat Lab 04/14/24 20:40 Completed Full Resp Panel w/COVID ([facility] Routine Lab 04/14/24 20:20 Completed NT Pro Brain Natriuretic Pep. Stat Lab 04/14/24 20:40 Completed Prothrombin Time INR Stat Lab 04/14/24 20:40 Completed Trop I [Troponin I] Stat Lab 04/14/24 20:40 Completed Troponin I Q3H Lab 04/14/24 23:30 Ordered Troponin I Q3H Lab 04/15/24 02:30 Ordered ECG Data Tracing #1: I reviewed this ECG and interpreted as documented below: EKG without acute ischemia or infarction, normal intervals, normal QTc ECG initial impression date: 04/14/24 ECG initial impression time: 20:52 ECG normal with no acute: arrhythmias, ischemia, conduction abnormalities, chamber hypertrophy Medical Decision Narrative: Patient is a 53-year-old female with past medical history type 2 diabetes, hypertension, hyperlipidemia, CAD status post stent and bypass, ESRD on dialysis presenting with malaise, cough and congestion now with hemoptysis developing over the past couple of days. She denies any known fevers and denies any known symptoms similar to this. She does take aspirin and Plavix daily. She also missed her dialysis appointment today due to feeling poorly. She appears much older than stated age in no acute distress but appears chronically ill, thin and frail, no respiratory distress and oxygen saturation normal, hemodynamically stable. Left forearm fistula in place with palpable thrill. Given new hemoptysis and duration of symptoms especially with worsening and she missed dialysis today concerned that she will need dialysis urgently and will proceed with labs and imaging including CTA at this time. EKG without acute ischemia or infarction, CBC nonactionable, CMP with creatinine of 4 likely chronically elevated in the setting of ESRD on dialysis, troponin negative at 0.03, BNP elevated to 42,900 consistent with likely clinical fluid overload. CT pending at time of signout and notably patient was unable to complete the study with initial attempted bolus of contrast dye and therefore performed without contrast. Care of patient with admission for likely transfer patient to dialysis facility considering concern for fluid overload and for further care and dialysis transition to Dr. Ball. <Estefania Ball MD - Last Filed: 04/15/24 00:46> Vital Signs: 04/14/24 20:13 04/14/24 20:16 04/14/24 21:14 Temperature 98.2 F Temperature Source Oral Pulse Rate 63 65 Pulse Rate [Right Brachial] 62 Respiratory Rate 15 Blood Pressure 151/59 H Blood Pressure [Right Arm] 151/59 H Blood Pressure Mean Blood Pressure Mean [Right Arm] 89 Blood Pressure Source [Right Arm] Automatic Cuff Blood Pressure Position [Right Arm] Sitting 02 Sat by Pulse Oximetry 97 96 Oxygen Delivery Method Room Air 04/15/24 00:34 Temperature Temperature Source Pulse Rate 69 Pulse Rate [Right Brachial] Respiratory Rate Blood Pressure 167/58 H Blood Pressure [Right Arm] Blood Pressure Mean 94 Blood Pressure Mean [Right Arm] Blood Pressure Source [Right Arm] Blood Pressure Position [Right Arm] 02 Sat by Pulse Oximetry 97 Oxygen Delivery Method Room Air Lab Data Lab Results 04/14/24 20:20: Chlamy pneumoniae PCR Not detected, Adenovirus (PCR) Not detected, B. pertussis DNA (PCR) Not detected, Coronavirus OC43 (PCR) Not detected, Coronavirus HKU1 (PCR) Not detected, Coronavirus 229E (PCR) Not detected, SARS-CoV-2 (PCR) Not detected, Coronavirus NL63 (PCR) Not detected, Human Metapneumovir PCR Not detected, Influenza A (H1) PCR Not detected, Influ A (H1N1/09) PCR Not detected, Influenza A (H3) PCR Not detected, Influenza Type A (PCR) Not detected, Influenza Type B (PCR) Not detected, M. pneumoniae (PCR) Not detected, Parainfluenza 1 (PCR) Not detected, Parainfluenza 2 (PCR) Not detected, Parainfluenza 3 (PCR) Not detected, Parainfluenza 4 (PCR) Not detected, RSV (PCR) Not detected, Entero/Rhino (PCR) Not detected 04/14/24 20:40: WBC 3.0 L, RBC 2.53 L, Hgb 8.4 L, Hct 27.3 L, MCV 107.9 H, MCH 33.0 H, MCHC 30.6 L, RDW 14.6, Plt Count 70 L, MPV 10.0, Neut % (Auto) 64.7, Lymph % (Auto) 19.4, Mcmullen % (Auto) 11.2 H, Eos % (Auto) 3.7, Baso % (Auto) 1.0, Neut # (Auto) 2.0, Lymph # (Auto) 0.6 L, Mcmullen # (Auto) 0.3, Eos # (Auto) 0.1, Baso # (Auto) 0.0, PT 11.4, INR 1.02, APTT 27.8, Sodium 137, Potassium 4.6, Chloride 98, Carbon Dioxide 29, Anion Gap 14.6, BUN 60 H, Creatinine 4.00 H, Estimated Creat Clear 15, Estimated GFR 12 L*, Est GFR ( Amer) 14 L*, Glucose 132 H, Calcium 9.1, Total Bilirubin 0.5, AST 21, ALT 10 L, Alkaline Phosphatase 68, Troponin I 0.03, NT-Pro-B Natriuret Pep 05591 H, Total Protein 6.5, Albumin 4.0, Globulin 2.5, Albumin/Globulin Ratio 1.6 Orders (Tests/Meds): ED MEDICATIONS Generic Name Dose Route Start Last Admin Trade Name Freq PRN Reason Stop Dose Admin Hydralazine HCl 50 mg 04/15/24 00:42 Hydralazine Hcl 25mg Tablet PO 04/15/24 00:43 ONCE ONE Sodium Chloride 10 ml 04/14/24 20:19 Sodium Chloride 0.9% 10ml Flush Syringe IV 05/14/24 20:18 NEEDED PRN Maintain IV Site Sodium Chloride 10 ml 04/14/24 22:27 04/14/24 22:29 Sodium Chloride 0.9% 10ml Syr (Rad Only) IV 05/14/24 22:26 10 ml NEEDED PRN Administration Maintain IV Site Discontinued Medications Generic Name Dose Route Start Last Admin Trade Name Freq PRN Reason Stop Dose Admin Albuterol/Ipratropium 3 ml 04/14/24 20:19 04/14/24 20:53 Ipratropium/Albuterol 3 Ml Neb IH 04/14/24 20:20 3 ml ONCE ONE Administration Iopamidol 70 ml 04/14/24 22:27 04/14/24 22:29 Iopamidol-370 (76%);100ml Bottle IV 04/14/24 22:28 70 ml ONCE ONE Administration Sodium Chloride 50 ml 04/14/24 22:27 04/14/24 22:29 0.9 % Sodium Chloride 50 Ml Vial IV 04/14/24 22:28 50 ml ONCE ONE Administration ORDERS Category Date Time Status CT chest wo con Routine Cat Scan 04/14/24 Completed CTA Chest [CT angio chest PE protocol] Stat Cat Scan 04/14/24 20:19 Completed Activated Partial Thrombo Time Stat Lab 04/14/24 20:40 Completed Complete Blood Count Auto Diff Stat Lab 04/14/24 20:40 Completed Comprehensive Metabolic Panel Stat Lab 04/14/24 20:40 Completed Full Resp Panel w/COVID ([facility]) Routine Lab 04/14/24 20:20 Completed NT Pro Brain Natriuretic Pep. Stat Lab 04/14/24 20:40 Completed Prothrombin Time INR Stat Lab 04/14/24 20:40 Completed Trop I [Troponin I] Stat Lab 04/14/24 20:40 Completed Troponin I Q3H Lab 04/14/24 23:30 Ordered Troponin I Q3H Lab 04/15/24 02:30 Ordered Medical Decision Narrative: Patient is a 53-year-old female with past medical history type 2 diabetes, hypertension, hyperlipidemia, CAD status post stent and bypass, ESRD on dialysis presenting with malaise, cough and congestion now with hemoptysis developing over the past couple of days. She denies any known fevers and denies any known symptoms similar to this. She does take aspirin and Plavix daily. She also missed her dialysis appointment today due to feeling poorly. She appears much older than stated age in no acute distress but appears chronically ill, thin and frail, no respiratory distress and oxygen saturation normal, hemodynamically stable. Left forearm fistula in place with palpable thrill. Given new hemoptysis and duration of symptoms especially with worsening and she missed dialysis today concerned that she will need dialysis urgently and will proceed with labs and imaging including CTA at this time. EKG without acute ischemia or infarction, CBC nonactionable, CMP with creatinine of 4 likely chronically elevated in the setting of ESRD on dialysis, troponin negative at 0.03, BNP elevated to 42,900 consistent with likely clinical fluid overload. CT pending at time of signout and notably patient was unable to complete the study with initial attempted bolus of contrast dye and therefore performed without contrast. Care of patient with admission for likely transfer patient to dialysis facility considering concern for fluid overload and for further care and dialysis transition to Dr. Ball. Ball: Upon my assumption of care patient is stable, she was saturating well on room air at rest. She reports she has been having subjective fevers at home with blood-streaked sputum which was her primary cause for her presentation today. Patient is also concerned about fluid overload. She reports she gets her dialysis from [facility] in [place] and they usually pull up to 2.7 L. I reviewed labs which do not demonstrate findings of hyperkalemia or other severe electrolyte abnormalities despite patient missing her dialysis today. CT imaging was personally interpreted and despite poor contrast bolus timing I appreciate findings of pulmonary edema, inflammatory changes in the airways, pleural effusion. See radiology read for final interpretation. Patient is concerned about the blood in the sputum. She states she has never had this with bronchitis in the past I believe this is the underlying cause of her hemoptysis at this time. My bigger concern is that patient has significant findings of fluid overload and on CT it appears that she is developing heart failure which is going to complicate her respiratory status. She does not ambulate at baseline and is not currently requiring oxygen, however I have high concern for clinical decline since she will not receive dialysis for 3 days yet. Given this and her need for upcoming dialysis to help mitigate any respiratory complications, I reached out to [facility] for transfer. They have previously seen this patient. I discussed this patient with Dr. Alfaro at [facility], he accepted the patient for transfer for hemoptysis, pleural effusion, fluid overload. Patient will be transferred via ALS. She received a home dose of hydralazine in the ER prior to transfer. Patient was transferred in stable condition. Critical Care <Saira Domingo MD - Last Filed: 04/14/24 23:36> Critical Care Time Critical Care Time: No
[2024-04-14 20:29] LABS: Adenovirus,PCR Not Detected (NotDetected); Bordetella Pertussis Not Detected (NotDetected); Chlamydophila Pneumoniae, PCR Not Detected (NotDetected); Coronavirus 19, PCR Not Detected (NotDetected); Coronavirus 229E Not Detected (NotDetected); Coronavirus NL63 Not Detected (NotDetected); Coronavirus OC43 Not Detected (NotDetected); Coronovirus HKU1,PCR Not Detected (NotDetected); Human Metapneumovirus Not Detected (NotDetected); Influenza A, PCR Not Detected (NotDetected); Influenza AH1, 2009 Not Detected (NotDetected); Influenza AH1, PCR Not Detected (NotDetected); Influenza AH3,PCR Not Detected (NotDetected); Influenza B, PCR Not Detected (NotDetected); Mycoplasma Pneumoniae, PCR Not Detected (NotDetected); Parainfluenza 1, PCR Not Detected (NotDetected); Parainfluenza 2, PCR Not Detected (NotDetected); Parainfluenza 3, PCR Not Detected (NotDetected); Parainfluenza 4, PCR Not Detected (NotDetected); Respiratory Syncytial Virus Not Detected (NotDetected); Rhinovirus/Enterovirus Not Detected (NotDetected)
[2024-04-14] MEDS: IPRATROPIUM/ALBUTEROL 3 ML NEB IH (20:53)
[2024-04-14 21:05] LABS: Eosinophils # 0.1 K/mm3 (0.0-0.4); Eosinophils % 3.7 % (0.1-12.0); Hematocrit 27.3 % (37.0-47.0); Hemoglobin 8.4 g/dL (12.2-16.2); Lymphocytes # 0.6 K/mm3 (0.7-4.5); Lymphocytes % 19.4 % (10-50); Mean Corpuscular HGB Conc 30.6 g/dL (31.8-35.4); Mean Corpuscular Volume 107.9 fl (81-99); Monocytes # 0.3 K/mm3 (0.1-1.0); Monocytes % 11.2 % (1.7-9.3); Neutrophils % 64.7 % (37.0-80.0); Platelet Count 70 K/mm3 (142-424); Red Blood Count 2.53 M/mm3 (4.20-5.40); Red Cell Distribution Width 14.6 % (11.5-17.5)
[2024-04-14 21:11] LABS: Chloride 98 mmol/L (98-107); Sodium 137 mmol/L (136-145)
[2024-04-14 21:12] LABS: Potassium 4.6 mmoL/L (3.5-5.1)
[2024-04-14 21:13] LABS: Activated Partial Thrombo Time 27.8 seconds (22.8-30.6); INR 1.02 (0.9-1.1); Prothrombin Time 11.4 seconds (10.1-12.5)
[2024-04-14 21:14] VITALS: PULSE 65
[2024-04-14 21:14] LABS: Alanine Aminotransferase 10 U/L (12-78); Albumin/Globulin Ratio 1.6 (1.1-1.8); Alkaline Phosphatase 68 U/L (38-126); Anion Gap 14.6 mEq/L (5-15); Aspartate Amino Transferase 21 U/L (14-36); Bilirubin,Total 0.5 mg/dl (0.2-1.3); Blood Urea Nitrogen 60 mg/dl (7-17); Carbon Dioxide 29 mmol/L (22.0-30.0); Creatinine Clearance Estimated 15 mL/min (50-200); Estimated Glomerular Filt Rate 12 ml/min (>60); GFR (African American) 14 ML/MIN (>60); Globulin 2.5 g/dL (1.3-3.2); Total Protein,Serum 6.5 g/dl (6.3-8.2)
[2024-04-14 21:15] LABS: Calcium 9.1 mg/dl (8.4-10.2); Glucose 132 mg/dl (74-100)
[2024-04-14 21:26] LABS: Troponin I 0.03 ng/ml (0.00-0.034)
--- NOTE | 2024-04-14 21:43 | PC.NURSE ---
confirmed with that gfr and creatinine was ok for pe study for maureen sandy.
[2024-04-14 22:00] LABS: NT Pro Brain Natriuretic Pep. 42900 pg/mL (0-125)
--- NOTE | 2024-04-14 22:08 | PC.NURSE ---
Patient to CT
--- NOTE | 2024-04-14 22:26 | PC.NURSE ---
return from rad at this time without incident
[2024-04-14] MEDS: 0.9 % SODIUM CHLORIDE 50 ML VIAL IV (22:29)
[2024-04-14] MEDS: IOPAMIDOL-370 (76%);100ML BOTTLE 70 ML IV (22:29)
[2024-04-14] MEDS: SODIUM CHLORIDE 0.9% 10ML SYR (RAD ONLY) 10 ML IV (22:29)
--- NOTE | 2024-04-14 23:57 | PC.NURSE ---
call placed to [facility], spoke with Odette, she will page hospitalist and call us back, informed
--- NOTE | 2024-04-15 00:08 | PC.NURSE ---
speaking with shelby medina at [facility]
--- NOTE | 2024-04-15 00:12 | PC.NURSE ---
patient accepted at [facility]
[2024-04-15 00:34] VITALS: BP 167/58; PULSE 69; O2SAT 97
--- NOTE | 2024-04-15 00:35 | PC.NURSE ---
received bed assignment and faxed facesheet to [facility]. pt to go to ICU. primary nurse Cindy was given number for report call.
--- NOTE | 2024-04-15 00:40 | PC.NURSE ---
ems notified of transfer. spoke with kim
--- NOTE | 2024-04-15 00:48 | PC.NURSE ---
Nurse to nurse report to Mona GUIDRY
[2024-04-15] MEDS: HYDRALAZINE 10MG TABLET 50 MG PO (00:53)
[2024-04-15 01:17] VITALS: BP 169/79; PULSE 78; RESP 18; TEMP 36.8; O2SAT 95
== END 2024-04-15 01:19 | disposition short-term general hospital (02) ==
PROVIDERS: Emergency Provider Emergency Medicine; PCP Internal Medicine
DX: J90 Pleural effusion, not elsewhere classified; R04.2 Hemoptysis; D72.819 Decreased white blood cell count, unspecified; D63.1 Anemia in chronic kidney disease; N18.6 End stage renal disease; I51.7 Cardiomegaly; E11.22 Type 2 diabetes mellitus with diabetic chronic kidney disease; I12.0 Hypertensive chronic kidney disease with stage 5 chronic kidney disease or end stage renal disease; Z86.79 Personal history of other diseases of the circulatory system; Z95.1 Presence of aortocoronary bypass graft; Z99.2 Dependence on renal dialysis
CPT/HCPCS: 71250; 71275; 80053; 83880; 84484; 85025; 85610; 85730; 87581; 87632; 87635; 87798; 93005; 99285; J7620; Q9967

== ENCOUNTER 2024-05-17 10:35 | Emergency (ER) | payer OTHER, SELFPAY ==
[2024-05-17] VITALS (18 sets, daily range): BP systolic 147–166; BP diastolic 56–72; PULSE 60–70; RESP 16–18; TEMP 36.7–36.9; O2SAT 92–96; BMI 20.3
--- NOTE | 2024-05-17 10:51 | PC.NURSE ---
Lis, lab at bedside for type and screen.
--- NOTE | 2024-05-17 11:02 | HMH.EDGENADL ---
Discharge Plan Disposition Patient Disposition: Home, Self-Care Prescriptions Prescriptions: New ferrous sulfate 134 mg (27 mg iron) tablet 134 mg PO DAILY Qty: 30 0RF No Action levothyroxine 75 mcg capsule 75 mcg PO DAILY isosorbide mononitrate 60 mg tablet extended release 24 hr 60 mg PO DAILY clopidogrel 75 mg tablet 75 mg PO DAILY pantoprazole 20 mg tablet,delayed release (DR/EC) 20 mg PO DAILY aspirin 325 mg tablet 325 mg PO DAILY doxazosin 2 mg tablet 2 mg PO BID ezetimibe 10 mg tablet 10 mg PO DAILY clonidine HCl 0.1 mg tablet 0.1 mg PO BID oxycodone-acetaminophen 10-325 mg tablet 1 tab PO Q6H PRN (Reason: pain) Qty: 120 0RF hydralazine 50 mg tablet 50 mg PO Q3H valsartan 80 mg tablet 80 mg PO BID Qty: 180 1RF carvedilol 25 mg Tablet 25 mg PO BID Rx Instructions: must administer with a meal/food Referrals Follow up/Referrals: Osmani Becker MD [Primary Care Provider] - See instructions Silver Franco MD [Staff Physician] - See instructions Activity Restrictions/Add. Instructions Additional Instructions/Restrictions: Follow-up with your abstract maker on Tuesday as scheduled. If you develop any new or worsening symptoms, or if you become concerned for your health for any reason, return to the emergency department for evaluation. Dr. Lo's information here, I would schedule an appointment with him to discuss potential medications to help raise your blood counts. Clinical Impressions Clinical Impression: Anemia Print Language Print Language: [place] Discharge ED Provider: Matt Hooks General Adult HPI <Terrell Sosa MD - Last Filed: 05/17/24 15:11> General Chief complaint: Recheck/Abnormal Lab/Rx Stated complaint: critical labs Time Seen by Provider: 05/17/24 10:59 Mode of Arrival: Family Vehicle Source of Information: Patient and Spouse Limitations: No Limitations Description of Symptoms (Recalled from ER Triage Doc. by RN): Pt presents to ER after dialysis appt d/t low Hgb (6.5) & Hct (19.5). These labs were from today. Pt states she typically around 7 and last had to received PRBC in January. Reports weakness but thus is typical for her. History of Present Illness HPI narrative: This is a 53-year-old female with a history of end-stage renal disease on hemodialysis every Tuesday, and Tuesday who presents to the emergency department for blood transfusion. Patient states that she underwent hemodialysis today but was found to have a hemoglobin of 6.5. She states that her hemoglobin has been low in the past requiring transfusions. She states that she completed her dialysis treatment today and then was sent here for a blood transfusion. She denies any vaginal bleeding, urinary blood. She states that she had some hemoptysis several weeks ago but denies any currently. Related Data Home Medications ?Medication ?Instructions ?Recorded ?Confirmed aspirin 325 mg tablet 325 mg PO DAILY 03/07/24 05/07/24 clonidine HCl 0.1 mg tablet 0.1 mg PO BID 03/07/24 05/07/24 clopidogrel 75 mg tablet 75 mg PO DAILY 03/07/24 05/07/24 doxazosin 2 mg tablet 2 mg PO BID 03/07/24 05/07/24 ezetimibe 10 mg tablet 10 mg PO DAILY 03/07/24 05/07/24 isosorbide mononitrate 60 mg 60 mg PO DAILY 03/07/24 05/07/24 tablet,extended release 24 hr levothyroxine 75 mcg capsule 75 mcg PO DAILY 03/07/24 05/07/24 pantoprazole 20 mg tablet,delayed 20 mg PO DAILY 03/07/24 05/07/24 release hydralazine 50 mg tablet 50 mg PO Q3H 04/13/24 05/07/24 carvedilol 25 mg tablet 25 mg PO BID 04/15/24 05/07/24 Previous Rx's ?Medication ?Instructions ?Recorded oxycodone-acetaminophen 10 mg-325 1 tab PO Q6H PRN pain #120 tabs 05/07/24 mg tablet valsartan 80 mg tablet 80 mg PO BID #180 tabs 05/15/24 ferrous sulfate 134 mg (27 mg 134 mg PO DAILY #30 tabs 05/17/24 iron) tablet Allergies Allergy/AdvReac Type Severity Reaction Status Date / Time
[2024-05-17 11:03] LABS: Eosinophils # 0.1 K/mm3 (0.0-0.4); Hematocrit 22.6 % (37.0-47.0); Lymphocytes # 0.9 K/mm3 (0.7-4.5); Lymphocytes % 28.9 % (10-50); Mean Corpuscular HGB Conc 30.2 g/dL (31.8-35.4); Mean Corpuscular Volume 109.2 fl (81-99); Mean Platelet Volume 11.2 fl (7.4-10.4); Monocytes # 0.2 K/mm3 (0.1-1.0); Monocytes % 7.7 % (1.7-9.3); Neutrophils # 1.9 K/mm3 (1.8-7.8); Neutrophils % 59.4 % (37.0-80.0); Platelet Count 57 K/mm3 (142-424); Red Blood Count 2.07 M/mm3 (4.20-5.40); White Blood Count 3.1 K/mm3 (4.8-10.8)
[2024-05-17 11:07] LABS: Hemoglobin 6.8 g/dL (12.2-16.2)
--- NOTE | 2024-05-17 11:07 | PC.NURSE ---
Dr. Zafar at bedside
--- NOTE | 2024-05-17 11:07 | PC.NURSE ---
Dr. Sosa notified of Hgb of 6.8.
[2024-05-17 11:09] LABS: Albumin Level 3.6 g/dl (3.5-5.0); Chloride 99 mmol/L (98-107); Potassium 3.7 mmoL/L (3.5-5.1); Sodium 138 mmol/L (136-145)
[2024-05-17 11:12] LABS: Alanine Aminotransferase 12 U/L (12-78); Albumin/Globulin Ratio 1.3 (1.1-1.8); Alkaline Phosphatase 73 U/L (38-126); Anion Gap 8.7 mEq/L (5-15); Aspartate Amino Transferase 23 U/L (14-36); Bilirubin,Total 0.4 mg/dl (0.2-1.3); Blood Urea Nitrogen 31 mg/dl (7-17); Carbon Dioxide 34 mmol/L (22.0-30.0); Creatinine Clearance Estimated 30 mL/min (50-200); Estimated Glomerular Filt Rate 26 ml/min (>60); GFR (African American) 31 ML/MIN (>60); Globulin 2.7 g/dL (1.3-3.2); Glucose 223 mg/dl (74-100); Total Protein,Serum 6.3 g/dl (6.3-8.2)
[2024-05-17 15:53] LABS: Hematocrit 24.1 % (37.0-47.0); Hemoglobin 7.1 g/dL (12.2-16.2)
== END 2024-05-17 16:35 | disposition home or self-care (01) ==
PROVIDERS: Student in an Organized Health Care Education/Training Program; Emergency Provider Emergency Medicine; PCP Internal Medicine
DX: D63.1 Anemia in chronic kidney disease (principal); N18.6 End stage renal disease; Z99.2 Dependence on renal dialysis; D64.9 Anemia, unspecified
CPT/HCPCS: 36430; 80053; 85014; 85018; 85025; 86850; 99285; P9016

== ENCOUNTER 2025-05-31 05:45 | Emergency (ER) | payer MEDICARE, SELFPAY ==
--- OUTSIDE RECORDS SUMMARY | 2025-05-05 16:00 | XMS_ITS | Encounter Summary ---
Author Organization Healthcare Address [address] [place] [address] Care Team Providers Care Merchandise Complaint Adjuster Name Role Phone Osmani Becker MD Primary Care Provider [phone] Reason for Visit * Reason Comments Needs dialysis Encounter Details Date Type Department Care Team (Late st Contact Info) Description 05/05/2025 4:00 PM EDT - 05/05/2025 6:01 PM EDT Emergency [facility] Emergency Department [address] [place] [address] Neno Elizabeth MD [address] [place] [address] ESRD (end stage renal disease) on dialysis ([facility]) (Primary Dx); Elevated TSH; Hyperphosphatemia Discharge Disposition: [...] and Family Not on file 06/25/2024 Attends Spiritism Services Not on file 06/25 Active Member [...] place to sleep or slept in a fci (including now)? 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 Please return in the emergency department for worsening of your symptoms, shortness of breath, chest pain, or any other concerns that you have for your health. documented in this encounter Medications at Time of Discharge albuterol 108 (90 Base) MCG/ACT inhaler Inhale 2 puffs every 6 (six) hours if needed for shortness of breath. atorvastatin (Lipitor) 80 MG tablet Take 1 tablet (80 mg) by mouth every night. carvedilol (Coreg) 25 MG tablet Take 1 tablet (25 mg) by mouth 2 (two) times a day with meals. 2 tablet 07/03/2024 cloNIDine (Catapres) 0.1 MG tablet Take 1 tablet (0.1 mg) by mouth 2 (two) times a day if needed. If systolic blood pressure is greater than 180 clopidogrel (Plavix) 75 MG tablet Take 1 tablet (75 mg) by mouth 1 (one) time each day. doxazosin (Cardura) 2 MG tablet Take 1 tablet (2 mg) by mouth every night. 2 tablet 07/03/2024 ergocalciferol (Vitamin D-2) 1.25 MG (91948 UT) capsule Take 1 capsule (50,000 Units) by mouth every 14 (fourteen) days. ezetimibe (Zetia) 10 MG tablet Take 1 tablet (10 mg) by mouth 1 (one) time each day. 2 tablet 07/03/2024 hydrALAZINE (Apresoline) 100 MG tablet Take 1 tablet (100 mg) by mouth 3 (three) times a day. 90 tablet 06/30/2024 lactulose (Chronulac) 10 GM/15ML solution Take 15 mL (10 g) by mouth 1 (one) time each day if needed (constipation). levothyroxine (Synthroid, Levoxyl) 75 MCG tablet Take 1 tablet (75 mcg) by mouth 1 (one) time each day before breakfast. 2 tablet 07/03/2024 NIFEdipine XL (Procardia XL) 90 MG 24 hr tablet Take 1 tablet (90 mg) by mouth 1 (one) time each day. Do not crush, chew, or split. 30 tablet 07/01/2024 oxyCODONE-acetam inophen (Percocet) 10-325 MG tablet Take 1 tablet by mouth every 6 (six) hours if needed for severe pain. pantoprazole (ProtoNix) 20 MG EC tablet Take 1 tablet (20 mg) by mouth 1 (one) time each day before breakfast. Do not crush, chew, or split. topiramate (Topamax) 25 MG tablet Take 1 tablet (25 mg) by mouth every night. documented as of this encounter Miscellaneous Notes [...] she had hemodialysis three days ago in [place] and was told by the MD there [...] at bedside reports pt received dialysis in [place] on Tuesday, 05/03 and was sent here per [facility] recommendations to be evaluated at before initiating dialysis in [facility]. Son reports he does not believe she needs emergent dialysis, he just wants to ensure that she will be able to get dialysis tomorrow; reports she has been on dialysis MWF for 3-4 years in [place]. Reports he moved his mother to [place] over the weekend to be closer to him. Pt reports she feels great today, and denies any symptoms. Denies chest pain, SOB, nausea, vomiting, diarrhea, urinary complaints and any other complaints at this time. History provided by: Patient sign language interpreter used: No Patient History Past Medical History[1] [...] is at baseline. Psychiatric: Behavior: Behavior normal. Pippa Coma Scale Score: 15 ED Course & [...] 0252 Date/Time Order Dose Route Action 05/05/2025 1758 EDT amLODIPine (Norvasc) tablet 10 mg 10 mg Oral Given All Other Orders Ordered Status Ordering Provider 05/05/25 1544 CMP STAT Final result ASMITA FELIZ 05/05/25 1544 CBC w/diff STAT Final result ASMITA FELIZ 05/05/25 1544 Magnesium STAT Final result ASMITA FELIZ 05/05/25 1544 Phosphorus STAT Final result ASMITA FELIZ 05/05/25 1544 Thyroid Stimulating Hormone, Plasma STAT Final result ASMITA FELIZ 05/05/25 1544 Free T4, Plasma STAT Final result ASMITA FELIZ 05/05/25 1544 Blood gas panel, venous STAT Final result ASMITA FELIZ 05/05/25 1544 Type and screen Start now Final result ASMITA FELIZ 05/05/25 1544 EKG now - STAT (adult) Once Final result ASMITA FELIZ ED Course as of 05/06/25251 Sun May 05, 2025 167 Spoke with Lis Ramirez with renal who [...] will then be connected with the ESRD addiction social worker, Vanessa Cai, to establish care for dialysis closer to home. [BW] 1754 At time of discharge patient is hypertensive; reports that patient is due for her amlodipine at this time therefore given home dose of amlodipine prior to discharge. [BW] ED Course User Index [BW] Devi James, PA Clinical Impressions as of 05/06/25251 ESRD (end stage renal disease) on dialysis ([facility]) Elevated TSH Hyperphosphatemia CBC was stable H&H, [...] ESRD (end stage renal disease) on dialysis ([facility]). Diagnoses of Elevated TSH and Hyperphosphatemia were [...] for dialysis, with a plan for the die out worker to get you established with a dialysis clinic close to home. Please return in the emergency department for worsening of your symptoms, shortness of breath, chest pain, or any other concerns that you have for your health. Disposition Discharge Pt discharged from ED. Pt vitally stable and in no obvious acute distress at the time of discharge. AVS (British Snapshot) - Printed 05/05/2025 Follow-Ups: Follow up [...] 05/06/2025 8:45 AM EDT Associated attestation - Neon Elizabeth MD - 05/06/2025 8:45 AM EDT I attest to being involved in more than half the total time in patient care. * ED Triage Notes - Haven Argueta RN - 05/05/2025 2:35 PM EDT Reports having hemodialysis on Tuesday in [place]. Family brought her home yesterday. in [place] told patient to be evaluated in ED on Tuesday for another treatment. documented in this encounter Plan of Treatment Upcoming Encounters Date Type Department Care Team (Late st Contact Info) Description 06/04/2025 12:15 PM EDT Appointment [facility] Interventional Radiology [address] [place] [address] 07/05/2025 1:00 PM EDT Consult [place] [facility] [address] [place] [address] Sobia Goldberg, RIGO [address] [place] [address] documented as of this encounter Procedures Procedure [...] 4:24 PM EDT 05/05/2025 4:30 PM EDT Asmita Feliz MD LAB BLOOD BANK TEST ORDERABLES Final Result BLOOD BANK [address] [place] [address], * (ABNORMAL) Blood gas panel, venous (05/05/2025 4:24 PM EDT) pH, Venous 7.30(L) 7.32 - 7.43 LAB HEMATOLOGY METHOD 05/05/2025 4:31 PM EDT [facility] pCO2, Venous 50 37 - 52 mmHg LAB HEMATOLOGY METHOD 05/05/2025 4:31 PM EDT [facility] pO2, Venous 35 25 - 40 mmHg LAB HEMATOLOGY METHOD 05/05/2025 4:31 PM EDT [facility] SO2, Measured, Venous 56(L) 65 - 80 % LAB HEMATOLOGY METHOD 05/05/2025 4:31 PM EDT [facility] Base Excess, Venous -2.2(L) -2.0 - 3.0 mmol/L LAB HEMATOLOGY METHOD 05/05/2025 4:31 PM EDT [facility] Bicarbonate, Calculated, Venous 25 22 - 26 mmol/L LAB HEMATOLOGY METHOD 05/05/2025 4:31 PM EDT [facility] Hematocrit, Whole Blood 31.2(L) 34.0 - 45.0 % LAB HEMATOLOGY METHOD 05/05/2025 4:31 PM EDT [facility] Sodium, Whole Blood 137 136 - 145 mmol/L LAB HEMATOLOGY METHOD 05/05/2025 4:31 PM EDT [facility] Potassium, Whole Blood 3.5(L) 3.6 - 4.9 mmol/L LAB HEMATOLOGY METHOD 05/05/2025 4:31 PM EDT [facility] Chloride, Whole Blood 97 97 - 107 mmol/L LAB HEMATOLOGY METHOD 05/05/2025 4:31 PM EDT [facility] Glucose, Whole Blood 146(H) 74 - 99 mg/dL LAB HEMATOLOGY METHOD 05/05/2025 4:31 PM EDT [facility] Lactate, Venous, Whole Blood 0.7 0.5 - 2.2 mmol/L LAB HEMATOLOGY METHOD 05/05/2025 4:31 PM EDT [facility] Ionized Calcium, Whole Blood 3.9(L) 4.6 - 5.1 mg/dL LAB HEMATOLOGY METHOD 05/05/2025 4:31 PM EDT [facility] Blood Venous blood specimen / Unknown Venipuncture / Unknown 05/05/2025 4:24 PM EDT 05/05/2025 4:29 PM EDT Asmita Feliz MD LAB BLOOD ORDERABLES Final Res ult Performing Organization Address [facility] Phone Number [facility] [address] [place] [address] * Free T4, Plasma (05/05/2025 4:24 PM EDT) Free T4, Plasma 0.8 0.8 - 1.7 ng/dL 05/05/2025 4:57 PM EDT [facility] Blood Venous blood specimen / Unknown Venipuncture / Unknown 05/05/2025 4:24 PM EDT 05/05/2025 4:29 PM EDT Narrative [facility] - 05/05/2025 4:57 PM EDT Free T4 Trimester Specific Ranges 1st Trimester 0.9 - 1.50 ng/dL 2nd Trimester 0.7 - 1.40 ng/dL 3rd Trimester 0.7 - 1.24 ng/dL Asmita Feliz MD LAB BLOOD ORDERABLES Final Res ult Performing Organization Address [facility] [place] [address] * (ABNORMAL) Thyroid Stimulating Hormone, Plasma (05/05/2025 4:24 PM EDT) Thyroid Stimulating Hormone, Plasma 12.22(H) 0.40 - 4.20 uIU/mL 05/05/2025 4:57 PM EDT [facility] Blood Venous blood specimen / Unknown Venipuncture / Unknown 05/05/2025 4:24 PM EDT 05/05/2025 4:29 PM EDT Narrative [facility] - 05/05/2025 4:57 PM EDT Trimester Specific Ranges TSH ( IU/mL) 1st Trimester 0.1 - 3.0 2nd Trimester 0.19 - 4.06 3rd Trimester 0.3 - 3.7 Asmita Feliz MD LAB BLOOD ORDERABLES Final Res ult Performing Organization Address [facility] Co de Phone Number [facility] [address] [place] [address] * (ABNORMAL) Phosphorus (05/05/2025 4:24 PM EDT) Phosphorus, Plasma 7.0(H) 2.5 - 4.5 mg/dL 05/05/2025 4:57 PM EDT [facility] Blood Venous blood specimen / Unknown Venipuncture / Unknown 05/05/2025 4:24 PM EDT 05/05/2025 4:29 PM EDT Asmita Feliz MD LAB BLOOD ORDERABLES Final Res ult Performing Organization Address [facility] Phone Number [facility] [address] [place] [address] * (ABNORMAL) Magnesium (05/05/2025 4:24 PM EDT) Magnesium, Plasma 1.6(L) 1.9 - 2.4 mg/dL 05/05/2025 4:57 PM EDT [facility] Blood Venous blood specimen / Unknown Venipuncture / Unknown 05/05/2025 4:24 PM EDT 05/05/2025 4:29 PM EDT Asmita Feliz MD LAB BLOOD ORDERABLES Final Res ult Performing Organization Address [facility] Co de Phone Number [facility] [address] [place] [address] * (ABNORMAL) CBC w/diff (05/05/2025 4:24 PM EDT) WBC Count 5.48 3.70 - 10.30 10*3/uL LAB HEMATOLOGY METHOD 05/05/2025 6:00 PM EDT [facility] RBC Count 3.44(L) 3.90 - 5.20 10*6/uL LAB HEMATOLOGY METHOD 05/05/2025 6:00 PM EDT [facility] HGB 10.0(L) 11.2 - 15.7 g/dL LAB HEMATOLOGY METHOD 05/05/2025 6:00 PM EDT [facility] HCT 35.1 34.0 - 45.0 % LAB HEMATOLOGY METHOD 05/05/2025 6:00 PM EDT [facility] Platelet Count LAB HEMATOLOGY METHOD 05/05/2025 6:00 PM EDT [facility] Comment:Interfering substanc e present, platelets appear decreased. Recollect recommended. MCV 102(H) 79 - 98 fL LAB HEMATOLOGY METHOD 05/05/2025 6:00 PM EDT [facility] MCH 29.1 26.0 - 32.0 pg LAB HEMATOLOGY METHOD 05/05/2025 6:00 PM EDT [facility] MCHC 28.5(L) 30.7 - 35.5 g/dL LAB HEMATOLOGY METHOD 05/05/2025 6:00 PM EDT [facility] RDW 15.4(H) 11.5 - 14.5 % LAB HEMATOLOGY METHOD 05/05/2025 6:00 PM EDT [facility] MPV LAB HEMATOLOGY METHOD 05/05/2025 6:00 PM EDT [facility] Comment:Not Measured nRBC 0.0 <=0.0 per 100 WBCs LAB HEMATOLOGY METHOD 05/05/2025 6:00 PM EDT [facility] Differential Type Automated LAB HEMATOLOGY METHOD 05/05/2025 6:00 PM EDT [facility] Neutrophils % 72 % LAB HEMATOLOGY METHOD 05/05/2025 6:00 PM EDT [facility] Lymphocytes % 16 % LAB HEMATOLOGY METHOD 05/05/2025 6:00 PM EDT [facility] Monocytes % 8 % LAB HEMATOLOGY METHOD 05/05/2025 6:00 PM EDT [facility] Eosinophils % 2 % LAB HEMATOLOGY METHOD 05/05/2025 6:00 PM EDT [facility] Basophils % 1 % LAB HEMATOLOGY METHOD 05/05/2025 6:00 PM EDT [facility] Immature Granulocytes % 1 % LAB HEMATOLOGY METHOD 05/05/2025 6:00 PM EDT [facility] Neutrophils Absolute 3.99 1.60 - 6.10 10*3/uL LAB HEMATOLOGY METHOD 05/05/2025 6:00 PM EDT [facility] Lymphocytes Absolute 0.86(L) 1.20 - 3.90 10*3/uL LAB HEMATOLOGY METHOD 05/05/2025 6:00 PM EDT [facility] Monocytes Absolute 0.45 0.30 - 0.90 10*3/uL LAB HEMATOLOGY METHOD 05/05/2025 6:00 PM EDT [facility] Eosinophils Absolute 0.08 0.00 - 0.50 10*3/uL LAB HEMATOLOGY METHOD 05/05/2025 6:00 PM EDT [facility] Basophils Absolute 0.07 0.00 - 0.10 10*3/uL LAB HEMATOLOGY METHOD 05/05/2025 6:00 PM EDT [facility] Immature Granulocytes Absolute 0.03 0.00 - 0.06 10*3/uL LAB HEMATOLOGY METHOD 05/05/2025 6:00 PM EDT [facility] Blood Venous blood specimen / Unknown Venipuncture / Unknown 05/05/2025 4:24 PM EDT 05/05/2025 4:29 PM EDT Narrative [facility] - 05/05/2025 6:00 PM EDT Therapeutic decision making should be based on absolute values, rather than percentages. us Asmita Feliz MD LAB BLOOD ORDERABLES Final Res ult [facility] [address] [place] [address] * (ABNORMAL) CMP (05/05/2025 4:24 PM EDT) Glucose, Plasma 150(H) 74 - 99 mg/dL 05/05/2025 4:57 PM EDT [facility] BUN, Plasma 63(H) 7 - 21 mg/dL 05/05/2025 4:57 PM EDT [facility] Creatinine, Plasma 4.23(H) 0.60 - 1.10 mg/dL 05/05/2025 4:57 PM EDT [facility] BUN/Creatinine Ratio 15 05/05/2025 4:57 PM EDT [facility] Sodium, Plasma 137 136 - 145 mmol/L 05/05/2025 4:57 PM EDT [facility] Potassium, Plasma 3.6 3.6 - 4.9 mmol/L 05/05/2025 4:57 PM EDT [facility] Chloride, Plasma 96(L) 97 - 107 mmol/L 05/05/2025 4:57 PM EDT [facility] CO2, Plasma 22 22 - 29 mmol/L 05/05/2025 4:57 PM EDT [facility] Anion Gap 19(H) 6 - 16 mmol/L 05/05/2025 4:57 PM EDT [facility] Total Calcium, Plasma 7.5(L) 8.9 - 10.2 mg/dL 05/05/2025 4:57 PM EDT [facility] Total Protein 6.6 6.3 - 7.9 g/dL 05/05/2025 4:57 PM EDT [facility] Albumin, Plasma 3.7 3.5 - 5.2 g/dL 05/05/2025 4:57 PM EDT [facility] AST, Plasma 20 10 - 35 U/L 05/05/2025 4:57 PM EDT [facility] ALT, Plasma <5(L) 10 - 35 U/L 05/05/2025 4:57 PM EDT [facility] Alkaline Phosphatase, Plasma 159(H) 35 - 104 U/L 05/05/2025 4:57 PM EDT [facility] Total Bilirubin, Plasma 0.5 0.2 - 1.1 mg/dL 05/05/2025 4:57 PM EDT [facility] eGFRcr 11.8 mL/min/1.7 3m*2 05/05/2025 4:57 PM EDT [facility] Comment:Reported eGFRcr in m L/min/1.73m2 is based the CKD-EPI 2020 equation that does not use a race coefficient. Blood Venous blood specimen / Unknown Venipuncture / Unknown 05/05/2025 4:24 PM EDT 05/05/2025 4:29 PM EDT us Asmita Feliz MD LAB BLOOD ORDERABLES Final Res ult [facility] [address] [place] [address] * EKG now - STAT (adult) (05/05/2025 3:49 PM EDT) EKG DIAGNOSIS CLASS Abnormal MUSE ECG Ventricular Rate 53 BPM MUSE ECG Atrial Rate 53 BPM MUSE ECG [place] Interval 142 ms MUSE ECG QRSD Interval 110 ms MUSE ECG QT Interval 488 ms MUSE ECG QTC Interval 457 ms MUSE ECG P [place] 55 degrees MUSE ECG R [place] 105 degrees MUSE ECG T Wave [place] 171 degrees MUSE ECG Diagnosis Sinus bradycardia MUSE ECG Diagnosis Rightward axis MUSE ECG Diagnosis Cannot rule out Inferior infarct , age undetermined MUSE ECG Diagnosis Cannot rule out Anterior infarct , age undetermined MUSE ECG Diagnosis Nonspecific T wave abnormality MUSE ECG Diagnosis Abnormal ECG MUSE ECG Diagnosis MUSE ECG Diagnosis Confirmed by Mariano Styles ([id number]) on 05/05/2025 6:58:31 PM MUSE ECG 05/05/2025 3:49 PM EDT 05/05/2025 6:58 PM EDT us Asmita Feliz MD ECG ORDERABLES Final Result MUSE ECG documented in this encounter Visit Diagnoses Diagnosis ESRD (end stage renal disease) on dialysis ([facility])- Primary End stage renal disease Elevated TSH [...] Routine 1758 (Given - Provid er: Arielle Castro RN) documented in this encounter Additional Health Concerns Assessment Noted Time A Body Mass Index follow-up plan has been documented for the patient 06/30/2024 1:58 PM EDT documented as of this encounter Care Teams Merchandise Complaint Adjuster Relationship Specialty Start Date End Date Osmani Becker MD [facility] [address] [place] [id number] PCP - General 01/30/21 documented as of this encounter
--- OUTSIDE RECORDS SUMMARY | 2025-05-06 13:27 | XMS_ITS | Encounter Summary ---
Author Organization [facility] Address [address] [place] [address] Care Team Providers Care Joy Operator Helper Name Role Phone Osmani Becker MD Primary Care Provider [phone] Reason for Referral * Consultation (Routine) - Authorized Specialty Diagnoses / Procedures Referred By Contact Referred To Contact Urology / Hematology and Oncology Diagnoses Renal mass Tiny Summers MD [address] [place] [address] Phone: tel:[phone] fax:[phone] [facility] Multid[facility] Oncology [facility] [address] [place] [address] Phone: tel: fax: Referral ID Status Reason Start Date Expiration Date Visits Requested Visits Authorized [id number] Authorized Specialty Services Required 05/06/2025 11/05/2026 1 1 Reason for Visit * Reason Comments Dialysis Encounter Details Date Type Department Care Team ([facility] st Contact Info) Description 05/06/2025 1:27 PM EDT - 05/06/2025 8:09 PM EDT Emergency [facility] A Emergency Department [address] [place] [address] Sena Navarro MD [address] [place] [address] Renal mass (Primary Dx); ESRD (end stage renal disease) ([facility]) Discharge Disposition: Home or Self Care Social [...] and Family Not on file 06/25/2024 Attends Nondenominational Services Not on file 06/25 Active Member [...] place to sleep or slept in a correction (including now)? 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) to steady your nerves or to get [...] file Travel History Travel Start Travel End [place] 04/05/2025 05/06/2025 documented as of this encounter Last Filed Vital Signs Vital Sign Reading Time Taken Comments Blood Pressure 175/68 05/06/2025 7:57 PM EDT Pulse 55 05/06/2025 7:57 PM EDT Temperature 36.3 C (97.3 F) 05/06/2025 7:57 PM EDT Respiratory Rate 16 05/06/2025 7:57 PM EDT Oxygen Saturation 93% 05/06/2025 7:57 PM EDT Inhaled Oxygen Concentration - - Weight 59 kg (130 lb) 05/06/2025 1:12 PM EDT Height - - Body Mass Index 20.36 05/05/2025 2:40 PM EDT documented in this encounter Functional Status * Calculated C-SSRS Risk Score (Lifetime/Recent) Answer Date of Assessment Author No Risk Indicated 05/06/2025 2:38 PM EDT Elif Haider RN * Question Answer Date of Assessment Author 1. Wish to be (Past 1 Month) No 05/06/2025 2:38 PM EDT Elif Haider RN 2. Non-Specific Active Suici ludwin Thoughts (Past 1 Month) No 05/06/2025 2:38 PM EDT Courtney Haider RN 6. Suicidal Behavior (Lifetime) No 2:38 PM EDT Elif Haider RN documented as of this encounter Discharge Instructions * Discharge Instructions* Ananda Almonte MD - 05/06/2025 7:51 PM EDT You were seen in the emergency department for dialysis. Please follow up with Nephrology outpatient. Please follow up with Urology regarding your renal mass. documented in this encounter Medications at Time [...] tablet 07/03/2024 ergocalciferol (Vitamin D-2) 1.25 MG (66826 UT) capsule Take 1 capsule (50,000 Units) [...] as of this encounter Miscellaneous Notes * Consults - Ramin Spencer MD - 05/06/2025 3:18 PM EDTAssociated Order(s): Consult to Nephrology Consult to Nephrology Consult performed by: Ramin Spencer MD Consult ordered by: Sena Navarro MD Reason for consult: ESRD on HD Nephrology Dialysis Consult Note Patient: Mar Waldron Admit Date: 05/06/2025 Date of Consult: 05/06/2025 Time of Consult: 3:20 PM Requesting Attending: No att. providers found Reason for Consult: ESRD management HPI: Mrs Mar aWldron is a 54 y.o. female with a history of ESRD on iHD, HTN, COPD, HFpEF who presents to the ED for laboratory check and possible iHD. Her son Patricio was present at bedside to 8 and additional history taking. Per patient and her son, they report that she had been living in [place] prior to this and receiving intermittent HD there. Son notes that patient had progressively become weaker and was not able to take care of herself well at home, additionally who she was staying with [facility] did not help in taking care of patient. He notes that he recently brought her to [place] to live and stay with him. States that she has been on HD for some time, she had previously visited from [place] late last year and was dialyzing at [facility]. Patient and son note that since her returned to [place] she has had a good appetite, denies any nausea vomiting or abdominal pain today. Denies any shortness of air chest pain or cough today. Son notes that patient has had some weakness which has been steadily improving at home. Patient's son notes that recently received a call from [facility] he will be reestablishing outpatient dialysis with the patient, she has an appointment this Tuesday at 12:45 p.m.. They note the patient has all of her medications without any empty pill bottles. Nephrology consulted for iHD treatment. ROS: ROS was obtained in 14 points and is negative except otherwise as noted in the HPI. History: Past Medical History[1] Problem List[2] Surgical History[3] Family History[4] Social History Socioeconomic History Marital status: Spouse name: Not on file Number of children: Not on file Years of education: Not on file Highest education level: Not on file Occupational History Not on file Tobacco Use Smoking status: Every Day Smokeless tobacco: Not on file Substance and Sexual Activity Alcohol use: No Drug use: Not on file Sexual activity: Not on file Other Topics Concern Not on file Social History Narrative Not on file Social Drivers of Health Financial Resource Strain: High Risk (06/17/2024) [place] [employer] [place] Financial Resource Strain How hard is it for you to pay for the very basics like food, housing, medical care, and heating? Would you say it is:: Somewhat hard Food Insecurity: No Food Insecurity (06/25/2024) Hunger Vital Sign Worried About Running Out of Food in the Last Year: Never true Ran Out of Food in the Last Year: Never true Transportation Needs: No Transportation Needs (06/25/2024) PRAPARE - Transportation Lack of Transportation (Medical): No Lack of Transportation (Non-Medical): No Physical Activity: Inactive (06/17/2024) Re[place] [employer] [place] Physical Activity Number of minutes of exercise per week : 0 Stress: No Stress Concern Present (04/15/2024) Received from [employer] ([place], [place], [place], [place]) Stress Feeling stress past 2 weeks: 1 Social Connections: Unknown (06/25/2024) Social Connection and Isolation Panel Frequency of Communication with Friends and Family: Not on file Frequency of Social Gatherings with Friends and Family: Not on file Attends Nondenominational Services: Not on file Active Member of Clubs or Organizations: Not on file Attends Club or Organization Meetings: Not on file Marital Status: Living with partner Intimate Partner Violence: Not At Risk (07/02/2024) Received from [facility] Abuse Screen Feels Unsafe at Home or Work/School: no Feels Threatened by Someone: no Does Anyone Try to Keep You From Having Contact with Others or Doing Things Outside Your Home?: no Physical Signs of Abuse Present: no Housing Stability: Low Risk (06/25/2024) Housing Stability Vital Sign Unable to Pay for Housing in the Last Year: No Number of Places Lived in the Last Year: 1 Unstable Housing in the Last Year: No Allergies[5] Medications: Home Medications: Current Medications[6] Current Medications: Current Scheduled Medications[7] Current Continuous Medications[8] Physical Exam: Visit Vitals BP (!) 144/50 Pulse 56 Temp 36.6 ??C (97.8 ??F) (Oral) Resp 20 Wt 59 kg (130 lb) SpO2 95% BMI 20.36 kg/m?? Smoking Status Every Day BSA 1.67 m?? Gen: Awake, alert, conversant, NAD HEENT: MMM, OP clear without lesions or exudate Neck: Supple CV: Regular rhythm, Normal S1/S2 Pulm: Clear to auscultation, normal respiratory effort Abd: Soft, non-tender, non-distended. Active BS. Ext: Trace to 1+ edema Skin: No jaundice. No rashes noted on observed skin Neuro: Alert and oriented. Moving all extremities Access: LUE forearm AVF with palpable thrill, good bruit Laboratory: CBC: Results from last 7 days Lab Units 05/06/25 1325 05/05/25 1624 WBC 10*3/uL 5.44 5.48 HEMOGLOBIN g/dL 9.3* 10.0* HEMATOCRIT % 31.7* 35.1 CMP: Results from last 7 days Lab Units 05/06/25 1325 05/05/25 1624 SODIUM mmol/L 136 137 POTASSIUM mmol/L 3.4* 3.6 CHLORIDE mmol/L 96* 96* CO2 mmol/L 20* 22 BUN mg/dL 74* 63* CREATININE mg/dL 5.20* 4.23* CALCIUM mg/dL 7.0* 7.5* BILIRUBIN TOTAL mg/dL -- 0.5 ALKALINE PHOSPHATASE U/L -- 159* ALT U/L -- <5* AST U/L -- 20 GLUCOSE mg/dL 174* 150* Impression & Plan: Mrs Waldron is a 54 y.o. wo/man with a history of ESRD on iHD, HTN, COPD, HFpEF who presented to ED on 05/06 for lab check and possible iHD. Nephrology consulted for ESRD management. Outpatient HD: - Schedule: Not established yet, likely MWF - Dialysis Unit: [facility] - Outpatient Saturator Tender: WHITNEY - Residual renal functions: - EDW: previously 59kg, will need new challenge weight outpatient - Access: LUE Forearm AVF Assessment and Plan: #Hypervolemia #Hypertension #Anemia in CKD #CKD-MBD #ESRD on HD #Left Inferior Pole Renal Mass - Noted on MRI from February 2025 Recommendations: - Patient won't be able to receive scheduled outpatient until Tuesday which may put her life at risk secondary to complications of ESRD and missing dialysis treatment. Thus will give session iHD today to avoid complications and admission: Rx 3hrs, 136Na, 4K, 2.5Ca, 32Bicarb, 0.5 - 1L UF - Consent signed and placed in patient chart - Has appointment to establish outpatient [facility]HD with [facility] Tuesday - Would recommend outpatient referral to Urology for further management of L- renal mass - Will obtain Hep B and Quanterfiron Gold labs to send to outpatient unit - Renally dose any medications given in ED for ESRD Please call or page with any questions. We will follow along for the duration of this admission. Ramin Spencer MD Department of Nephrology PGY-4 Pager: [phone]; Epic Chat Preferred [1] Past Medical History: Diagnosis Date Arthritis Diabetes mellitus (CMS/HCC) HTN (hypertension) Hypothyroidism Renal cancer (CMS/HCC) [2] Patient Active Problem List Diagnosis Volume overload ESRD (end stage renal disease) (CMS/HCC) [3] Past Surgical History: Procedure Laterality Date APPENDECTOMY SECTION, LOW TRANSVERSE CHOLECYSTECTOMY HYSTERECTOMY TONSILLECTOMY [4] Family History Problem Relation Name Age of Onset Diabetes Mother Diabetes Father Hypertension Mother Hypertension Father Other cancer Mother Other cancer Father Hyperlipidemia Mother Hyperlipidemia Father [5] Allergies Allergen Reactions Monetaglmary alice Sotelopen [Insulin Glargine] Other - please document in the comment field Lisinopril Cough and Unknown - Patient states they do not know rxn details Cough [6] Current Facility-Administered Medications: lidocaine (Anecream) 4 % cream 1 Application, 1 Application, Topical, Once, Ananda Almonte MD Current Outpatient Medications: albuterol 108 (90 Base) MCG/ACT inhaler, Inhale 2 puffs every 6 (six) hours if needed for shortnessof breath., Disp: , Rfl: atorvastatin (Lipitor) 80 MG tablet, Take 1 tablet (80 mg) by mouth every night., Disp: , Rfl: carvedilol (Coreg) 25 MG tablet, Take 1 tablet (25 mg) by mouth 2 (two) times a day with meals., Disp: 2 tablet, Rfl: 0 cloNIDine (Catapres) 0.1 MG tablet, Take 1 tablet (0.1 mg) by mouth 2 (two) times a day if needed. If systolic blood pressure is greater than 180, Disp: , Rfl: clopidogrel (Plavix) 75 MG tablet, Take 1 tablet (75 mg) by mouth 1 (one) time each day., Disp: , Rfl: doxazosin (Cardura) 2 MG tablet, Take 1 tablet (2 mg) by mouth every night., Disp: 2 tablet, Rfl: 0 ergocalciferol (Vitamin D-2) 1.25 MG (29620 UT) capsule, Take 1 capsule (50,000 Units) by mouth every 14 (fourteen) days., Disp: , Rfl: ezetimibe (Zetia) 10 MG tablet, Take 1 tablet (10 mg) by mouth 1 (one) time each day., Disp: 2 tablet, Rfl: 0 hydrALAZINE (Apresoline) 100 MG tablet, Take 1 tablet (100 mg) by mouth 3 (three) times a day., Disp: 90 tablet, Rfl: 0 isosorbide mononitrate ER (Imdur) 60 MG 24 hr tablet, Take 2 tablets (120 mg) by mouth 1 (one) timeeach day in the morning for 2 days. Do not crush or chew., Disp: 4 tablet, Rfl: 0 lactulose (Chronulac) 10 GM/15ML solution, Take 15 mL (10 g) by mouth 1 (one) time each day if needed (constipation)., Disp: , Rfl: levothyroxine (Synthroid, Levoxyl) 75 MCG tablet, Take 1 tablet (75 mcg) by mouth 1 (one) time eachday before breakfast., Disp: 2 tablet, Rfl: 0 NIFEdipine XL (Procardia XL) 90 MG 24 hr tablet, Take 1 tablet (90 mg) by mouth 1 (one) time each day. Do not crush, chew, or split., Disp: 30 tablet, Rfl: 0 oxyCODONE-acetaminophen (Percocet) 10-325 MG tablet, Take 1 tablet by mouth every 6 (six) hours if needed for severe pain., Disp: , Rfl: pantoprazole (ProtoNix) 20 MG EC tablet, Take 1 tablet (20 mg) by mouth 1 (one) time each day before breakfast. Do not crush, chew, or split., Disp: , Rfl: topiramate (Topamax) 25 MG tablet, Take 1 tablet (25 mg) by mouth every night., Disp: , Rfl: valsartan (Diovan) 80 MG tablet, Take 1 tablet (80 mg) by mouth 2 (two) times a day for 2 days., Disp: 4 tablet, Rfl: 0 [7] lidocaine, 1 Application, Topical, Once [8] Cosigned by Tiny Summers MD at 05/06/2025 4:29 PM EDT Associated attestation - Tiny Summers MD - 05/06/2025 4:29 PM EDT I saw and evaluated the patient. I discussed the case with the resident/fellow and agree with the findings and plan as documented. * ED Provider Notes - nAanda Almonte MD - 05/06/2025 1:06 PM EDT - HPI Chief Complaint Patient presents with ??? Dialysis PIT Note Mar Waldron is a 54 y.o. female who presents to ED after [facility] told her she needs to complete dialysis in hospital before able to complete in clinic. Reports hx ESRD and requires MWF dialysis.Says she recently moved from [place] due to dissatisfaction with care providers. States had blood work yesterday. Patient denies current headache, dysuria, fever, chills, cough, chest pain, shortnessof breath, nausea, vomiting, or diarrhea. Resident attestation: I agree with the statements above like to add the following. This patient reports that she has had dialysis 3 times weekly for the last 3 years due to end-stage renal disease. She has type 2 diabetes and is insulin dependent. She reports no headache, no shortness of breath, nochest pain. Patient History Past Medical History[1] Surgical History[2] Family History[3] Social History[4] Allergies: Allergies[5] Physical Exam ED Triage Vitals [05/06/25 1312] Temp Heart Rate Resp BP 36.6 ??C (97.8 ??F) 56 20 (!) 144/50 SpO2 Temp Source Heart Rate Source Patient Position 95 % Oral -- -- BP Location FiO2 (%) -- -- Physical Exam Vitals and nursing note reviewed. Constitutional: General: She is not in acute distress. Appearance: Normal appearance. HENT: Head: Normocephalic and atraumatic. Nose: No rhinorrhea. Mouth/Throat: Mouth: Mucous membranes are moist. Pharynx: Oropharynx is clear. Eyes: General: Right eye: No discharge. Left eye: No discharge. Conjunctiva/sclera: Conjunctivae normal. Pupils: Pupils are equal, round, and reactive to light. Cardiovascular: Rate and Rhythm: Normal rate. Pulmonary: Effort: Pulmonary effort is normal. No respiratory distress. Breath sounds: No stridor. Musculoskeletal: General: Normal range of motion. Cervical back: No rigidity. Skin: General: Skin is warm and dry. Neurological: Mental Status: She is alert and oriented to person, place, and time. Psychiatric: Mood and Affect: Mood normal. Behavior: Behavior normal. [place] Coma Scale Score: 15 ED Course & MDM PIT 05/06/25 - 13:19 Scribe Attestation: This note was dictated to me, Sara Burks, acting as a scribe for Dr. John Boykin. Attending Attestation: This documentation was recorded by Sara Burks acting as a scribe in my presence at the time of the encounter and accurately reflects the service I personally performed and thedecisions made by me. Assessment: 54 y.o. female presents to ED with complaint of needing dialysis. Differential Diagnosis: ESRD, hyperkalemia, volume overload, acidosis In order to fully explore the differential diagnosis the following treatments and tests were ordered: ED Course as of 05/07/25 170e May 07, [id number] Laboratory workup personally interpreted by me shows no leukocytosis, mild anemia, significantelevation in BUN and creatinine reflective of end-stage renal disease. EKG personally interpreted by me shows sinus bradycardia, no elevation in T wave [MM] 1705 Recent medical history shows that she was admitted to hospital on 4 the where she was diagnosed apparently unknown renal mass. Referral was placed for follow up with Urology. [MM] ED Course User Index [MM] Ananda Almonte MD Clinical Impressions as of 05/07/251706 Renal mass ESRD (end stage renal disease) (CMS/HCC) Ultimately, this patient was Was discharged Home (Discharge) The primary encounter diagnosis was Renal mass. A diagnosis of ESRD (end stage renal disease) (CMS/HCC) was also pertinent to this visit. . Patient was counseled on the diagnoses. Discharge medications if any are listed below. Listed medications are thought be either curative for listeddiagnoses or will help control ongoing symptoms. Patient is requested to follow up with Patient's Primary Care Provider and Nephrology in order to obtain routine follow-up and specialty care. Instructions on follow up as well as precautions to return to the ER provided verbally by the EM provider, as well as written in patients discharge education packet. ED Prescriptions None - [1] Past Medical History: Diagnosis Date ??? Arthritis ??? Diabetes mellitus (CMS/HCC) ??? HTN (hypertension) ??? Hypothyroidism ??? Renal cancer (CMS/HCC) [2] Past Surgical History: Procedure Laterality Date ??? APPENDECTOMY ??? SECTION, LOW TRANSVERSE ??? CHOLECYSTECTOMY ??? HYSTERECTOMY ??? TONSILLECTOMY [3] Family History Problem Relation Name Age of Onset ??? Diabetes Mother ??? Diabetes Father ??? Hypertension Mother ??? Hypertension Father ??? Other cancer Mother ??? Other cancer Father ??? Hyperlipidemia Mother ??? Hyperlipidemia Father [4] Tobacco Use ??? Smoking status: Every Day Substance Use Topics ??? Alcohol use: No [5] Allergies Allergen Reactions ??? Basaglar Kwikpen [Insulin Glargine] Other - please document in the comment field ??? Lisinopril Cough and Unknown - Patient states they do not know rxn details Cough Ananda Almonte MD Resident 05/07/25 1707 Cosigned by Sena Navarro MD at 05/07/2025 11:53 PM EDT Associated attestation - Sena Navarro MD - 05/07/2025 11:53 PM EDT I saw and evaluated the patient with the resident/fellow. I discussed the case with the resident/fellow and agree with the findings and plan as documented. * ED Triage Notes - Kayley Camilo RN - 05/06/2025 1:06 PM EDT Here for evaluation and dialysis documented in this encounter Plan of Treatment Upcoming Encounters Date Type Department Care Team (Late st Contact Info) Description 06/04/2025 12:15 PM EDT Appointment [facility] Interventional Radiology [address] [place] [address] 07/05/2025 1:00 PM EDT Consult [facility] Urology [address] [place] [id number] Sobia Goldberg PA [address] [place] [address] Scheduled Referrals Name Type Priority Associated Diagnoses Order Schedule Discharge Ambulatory referral to Urology Outpatient Referral Routine Renal mass 1 Occurrences starting 05/06/2025 until 11/07/2026 documented as of this encounter Procedures Procedure Name Priority Date/Time Associated Diagnosis Comments HEMODIALYSIS INPATIENT Routine 05/06/2025 4:35 PM EDT HEPATITIS B SURFACE ANTIBODY, QUANTITATIVE STAT 05/06/2025 4:22 PM EDT ACUTE HEPATITIS PANEL STAT 05/06/2025 4:22 PM EDT QUANTIFERON TB GOLD PLUS STAT 05/06/2025 4:22 PM EDT CBC WITH AUTO DIFFERENTIAL STAT 05/06/2025 1:25 PM EDT BASIC METABOLIC PANEL, PLASMA STAT 05/06/2025 1:25 PM EDT documented in this encounter Results * Quantiferon TB Gold (05/06/2025 4:22 PM EDT) Quantiferon TB Gold Plus Result Negative Negative 05/07/2025 8:11 PM EDT [facility] TB Nill Value 0.0799 IU/mL 05/07/2025 8:11 PM EDT [facility] TB Antigen 1 -0.0075 IU/mL 05/07/2025 8:11 PM EDT [facility] TB Antigen 2 0.0026 IU/mL 05/07/2025 8:11 PM EDT [facility] TB Mitogen 9.9201 IU/mL 05/07/2025 8:11 PM EDT [facility] Blood Venous blood specimen / Unknown Venipuncture / Unknown 05/06/2025 4:22 PM EDT 05/06/2025 4:56 PM EDT Narrative [facility] - 05/07/2025 8:11 PM EDT Responses to the Mitogen positive control and occasionally to TB antigen can be above the assay range. For calculation purposes: IFN-gamma values > 10 IU/mL are handled as 10 IU/mL. us Sumi Land MD LAB BLOOD ORDERABLES Final Res ult Performing Organization Address City/[facility]/[place] [address] * Hepatitis B Surface Antibody, Quantitative (05/06/2025 4:22 PM EDT) Pathologist [facility] Hepatitis B Surface Antibody, Quantitative <8.00 NonReactiv e: <8, Grayzone: 8 - <12, Reactive: >= 12 mIU/mL 05/06/2025 7:20 PM EDT [facility] Comment: Nonreactive. Individual is considered not immune to HBV infection. Blood Venous blood specimen / Unknown Venipuncture / Unknown 05/06/2025 4:22 PM EDT 05/06/2025 4:46 PM EDT us Sumi Land MD LAB BLOOD ORDERABLES Final Res ult Performing Organization Address [facility] [place] [address] * Hepatitis panel, acute (05/06/2025 4:22 PM EDT) [facility] Hepatitis B Surf Antigen Negative Negative 05/06/2025 7:24 PM EDT [facility] Hepatitis C Antibody Negative Negative 05/06/2025 7:24 PM EDT [facility] Hepatitis A Antibody IgM Negative Negative 05/06/2025 7:24 PM EDT [facility] Hepatitis B Core Antibody IgM Negative Negative 05/06/2025 7:24 PM EDT [facility] Blood Venous blood specimen / Unknown Venipuncture / Unknown 05/06/2025 4:22 PM EDT 05/06/2025 4:47 PM EDT us Sumi Land MD LAB BLOOD ORDERABLES Final Res ult Performing Organization Address City/[facility]/[place] [address] * (ABNORMAL) BMP (05/06/2025 1:25 PM EDT) Glucose, Plasma 174(H) 74 - 99 mg/dL 05/06/2025 1:50 PM EDT [facility] BUN, Plasma 74(H) 7 - 21 mg/dL 05/06/2025 1:50 PM EDT [facility] Creatinine, Plasma 5.20(H) 0.60 - 1.10 mg/dL 05/06/2025 1:50 PM EDT [facility] BUN/Creatinine Ratio 14 05/06/2025 1:50 PM EDT [facility] Sodium, Plasma 136 136 - 145 mmol/L 05/06/2025 1:50 PM EDT [facility] Potassium, Plasma 3.4(L) 3.6 - 4.9 mmol/L 05/06/2025 1:50 PM EDT [facility] Chloride, Plasma 96(L) 97 - 107 mmol/L 05/06/2025 1:50 PM EDT [facility] CO2, Plasma 20(L) 22 - 29 mmol/L 05/06/2025 1:50 PM EDT [facility] Anion Gap 20(H) 6 - 16 mmol/L 05/06/2025 1:50 PM EDT [facility] Total Calcium, Plasma 7.0(L) 8.9 - 10.2 mg/dL 05/06/2025 1:50 PM EDT [facility] eGFRcr 9.2 mL/min/1.7 3m*2 05/06/2025 1:50 PM EDT [facility] Comment:Reported eGFRcr in m L/min/1.73m2 is based the CKD-EPI 2020 equation that does not use a race coefficient. Blood Venous blood specimen / Unknown Venipuncture / Unknown 05/06/2025 1:25 PM EDT 05/06/2025 1:27 PM EDT us Sena Navarro MD LAB BLOOD ORDERABLES Final Resu lt [facility] [address] [place] [address] * (ABNORMAL) CBC w/diff (05/06/2025 1:25 PM EDT) WBC Count 5.44 3.70 - 10.30 10*3/uL LAB HEMATOLOGY METHOD 05/06/2025 4:07 PM EDT [facility] RBC Count 3.16(L) 3.90 - 5.20 10*6/uL LAB HEMATOLOGY METHOD 05/06/2025 4:07 PM EDT [facility] HGB 9.3(L) 11.2 - 15.7 g/dL LAB HEMATOLOGY METHOD 05/06/2025 4:07 PM EDT [facility] HCT 31.7(L) 34.0 - 45.0 % LAB HEMATOLOGY METHOD 05/06/2025 4:07 PM EDT [facility] Platelet Count 42(L) 155 - 369 10*3/uL LAB HEMATOLOGY METHOD 05/06/2025 4:07 PM EDT [facility] MCV 100(H) 79 - 98 fL LAB HEMATOLOGY METHOD 05/06/2025 4:07 PM EDT [facility] MCH 29.4 26.0 - 32.0 pg LAB HEMATOLOGY METHOD 05/06/2025 4:07 PM EDT [facility] MCHC 29.3(L) 30.7 - 35.5 g/dL LAB HEMATOLOGY METHOD 05/06/2025 4:07 PM EDT [facility] RDW 15.1(H) 11.5 - 14.5 % LAB HEMATOLOGY METHOD 05/06/2025 4:07 PM EDT [facility] MPV LAB HEMATOLOGY METHOD 05/06/2025 4:07 PM EDT [facility] Comment:Not Measured nRBC 0.0 <=0.0 per 100 WBCs LAB HEMATOLOGY METHOD 05/06/2025 4:07 PM EDT [facility] Differential Type Automated LAB HEMATOLOGY METHOD 05/06/2025 4:07 PM EDT [facility] Neutrophils % 74 % LAB HEMATOLOGY METHOD 05/06/2025 4:07 PM EDT [facility] Lymphocytes % 14 % LAB HEMATOLOGY METHOD 05/06/2025 4:07 PM EDT [facility] Monocytes % 9 % LAB HEMATOLOGY METHOD 05/06/2025 4:07 PM EDT [facility] Eosinophils % 2 % LAB HEMATOLOGY METHOD 05/06/2025 4:07 PM EDT [facility] Basophils % 1 % LAB HEMATOLOGY METHOD 05/06/2025 4:07 PM EDT [facility] Immature Granulocytes % 0 % LAB HEMATOLOGY METHOD 05/06/2025 4:07 PM EDT [facility] Neutrophils Absolute 4.04 1.60 - 6.10 10*3/uL LAB HEMATOLOGY METHOD 05/06/2025 4:07 PM EDT [facility] Lymphocytes Absolute 0.74(L) 1.20 - 3.90 10*3/uL LAB HEMATOLOGY METHOD 05/06/2025 4:07 PM EDT [facility] Monocytes Absolute 0.48 0.30 - 0.90 10*3/uL LAB HEMATOLOGY METHOD 05/06/2025 4:07 PM EDT [facility] Eosinophils Absolute 0.11 0.00 - 0.50 10*3/uL LAB HEMATOLOGY METHOD 05/06/2025 4:07 PM EDT [facility] Basophils Absolute 0.05 0.00 - 0.10 10*3/uL LAB HEMATOLOGY METHOD 05/06/2025 4:07 PM EDT [facility] Immature Granulocytes Absolute 0.02 0.00 - 0.06 10*3/uL LAB HEMATOLOGY METHOD 05/06/2025 4:07 PM EDT [facility] Blood Venous blood specimen / Unknown Venipuncture / Unknown 05/06/2025 1:25 PM EDT 05/06/2025 1:27 PM EDT Narrative [facility] - 05/06/2025 4:07 PM EDT Therapeutic decision making should be based on absolute values, rather than percentages. us Sena Navarro MD LAB BLOOD ORDERABLES Final Resu lt [facility] [address] [place] [address] documented in this encounter Visit Diagnoses Diagnosis Renal mass- Primary Unspecified disorder of kidney and ureter ESRD (end stage renal disease) ([facility]/HCC) End stage renal disease documented in this encounter Active and Recently Administered Medications Times are shown in EDT. Scheduled Medication Order 05/04/2025 05/05/2025 05/06/2025 lidocaine (Anecream) 4 % cream 1 Application Topical, Once, 1 dose, On 05/06/25 at 1425, STAT 1425 (Canceled Entry - Provider: Automatic Discharge Provider - Comment: Automatically canceled at discontinue of medication order) documented in this encounter Additional Health Concerns Assessment Noted Time A Body Mass Index follow-up plan has been documented for the patient 06/30/2024 1:58 PM EDT documented as of this encounter Care Teams Joy Operator Helper Relationship Specialty Start Date End Date Osmani Becker MD [address] [place] [address] [address] [place] [address] PCP - General 01/30/21 documented as of this encounter
--- OUTSIDE RECORDS SUMMARY | 2025-05-31 05:52 | XMS_ITS | Encounter Summary ---
Author Organization [facility] Address [address] [place] [address] Care Team Providers Care Loading Dock Helper Name Role Phone Osmani Becker MD Primary Care Provider [phone] Encounter Details Date Type Department Care Team (Late st Contact Info) Description 02/20/2025 Orders Only External Location [address] [place] [address] Provider, External Social History Tobacco Use Types Packs/Day Years [...] and Family Not on file 06/25/2024 Attends Mormon Services Not on file 06/25 Active Member [...] drink first t jacqueline in the morning (EYE-NEON SIGN ERECTOR) to steady your nerves or to get rid of a hangover? 0 06/21/2024 CAGE Questionnaire Score 0 024 Utilities Answer Date Recorded In the past 12 months has th e [employer], gas, oil, or water company threatened to shut off services in your home? No 06/25/2024 Comments Unknown Sex and Gender Information Value Date Recorded Sex Assigned at Female 07/03/2024 2:13 PM EDT Legal Sex Female 7:39 PM EDT Gender Identity Not on file Sexual Orientation Not on file Travel History Travel Start Travel End [place] 04/05/2025 05/06/2025 documented as of this encounter Plan of Treatment Upcoming Encounters Date Type Department Care Team (Late st Contact Info) Description 06/04/2025 12:15 PM EDT Appointment [facility] Interventional Radiology [address] [place] [address] 07/05/2025 1:[address] [facility] [address] [place] [address] Sobia Goldberg PA [address] [place] [address] documented as of this encounter Procedures Procedure Name Priority Date/Time Associated Diagnosis Comments CT MSK OUTSIDE IMAGES 02/20/2025 11:49 AM EDT documented in this encounter Results * CT MSK OUTSIDE IMAGES (02/20/2025 11:49 AM EDT) Anatomical Region Laterality Modality Computed Tomogra phy 02/20/2025 11:4 9 AM EDT us External Provider IMG CT PROCEDURES Final Result documented in this encounter Visit Diagnoses Not on filedocumented in this encounter Additional Health Concerns Assessment Noted Time A Body Mass Index follow-up plan has been documented for the patient 06/30/2024 1:58 PM EDT documented as of this encounter Care Teams Loading Dock Helper Relationship Specialty Start Date End Date Osmani Becker MD [address] [facility] [address] [place] [address] PCP - General 01/30/21 documented as of this encounter
--- OUTSIDE RECORDS SUMMARY | 2025-05-31 05:52 | XMS_ITS | Encounter Summary ---
Author Organization [facility] Address [address] [place] [address] Care Team Providers Care Vp Marketing Services And Skin Name Role Phone Osmani Becker MD Primary Care Provider [phone] Encounter Details Date Type Department Care Team (Late st Contact Info) Description 05/15/2025 [facility] [address] [place] [address] Clarice Zhou I, RN [facility] Social History Tobacco Use Types Packs/Day Years [...] and Family Not on file 06/25/2024 Attends Hindu Services Not on file 06/25 Active Member [...] place to sleep or slept in a half-way (including now)? No 06/25/2024 CAGE ASSESSMENT Answer [...] drink first t jacqueline in the morning (EYE-TANK PUMPER PANELBOARD) to steady your nerves or to get [...] file Travel History Travel Start Travel End [place] 04/05/2025 05/06/2025 documented as of this encounter Miscellaneous Notes * Telephone Encounter - Clarice Zhou I, RN - 05/15/2025 9:55 AM EDT Called to schedule urology appointment; no answer; mailbox full. documented in this encounter Plan of Treatment Upcoming Encounters Date Type Department Care Team (Late st Contact Info) Description 06/04/2025 12:15 PM EDT Appointment [facility] Interventional Radiology [address] [place] [address] 07/05/2025 1:00 PM EDT Consult [facility]rology [address] [place] [address] Sobia Goldberg PA [address] [place] [address] documented as of this encounter Visit Diagnoses Not on filedocumented in this encounter Additional Health Concerns Assessment Noted Time A Body Mass Index follow-up plan has been documented for the patient 06/30/2024 1:58 PM EDT documented as of this encounter Care Teams Vp Marketing Services And Skin Relationship Specialty Start Date End Date Osmani Becker MD [address] [facility] [address] [place] [address] PCP - General 01/30/21 documented as of this encounter
--- OUTSIDE RECORDS SUMMARY | 2025-05-31 05:52 | XMS_ITS | Encounter Summary ---
Author Organization [facility] Address [address] [place] [address] Care Team Providers Care Tooling Inspector Name Role Phone Osmani Becker MD Primary Care Provider [phone] Encounter Details Date Type Department Care Team (Late st Contact Info) Description 02/20/2025 Orders Only External Location [address] [place] [address] Provider, External Social History Tobacco Use Types [...] and Family Not on file 06/25/2024 Attends Faith Services Not on file 06/25 Active Member [...] place to sleep or slept in a longterm (including now)? No 06/25/2024 CAGE ASSESSMENT Answer [...] drink first t jacqueline in the morning (EYE-LAWN SPECIALIST) to steady your nerves or to get rid of a hangover? 0 06/21/2024 CAGE Questionnaire Score 0 024 Utilities Answer Date Recorded In the past 12 months has th e [employer], gas, oil, or water company threatened to [...] Appointment [facility] Interventional Radiology [address] [place] [address] 07/05/2025 1:00 PM EDT Consult [facility] [address] [place] [address] Sobia Goldberg PA [address] [place] [address] documented as of this encounter Procedures Procedure Name Priority Date/Time Associated Diagnosis Comments US ABDOMEN OUTSIDE IMAGES 02/20/2025 12:33 PM EDT documented in this encounter Results * US ABDOMEN OUTSIDE IMAGES (02/20/2025 12:33 PM EDT) Anatomical Region Laterality Modality Ultrasound 02/20/2025 12:3 3 PM EDT us External Provider IMG US PROCEDURES Final Result documented in this encounter Visit Diagnoses Not on filedocumented in this encounter Additional Health Concerns Assessment Noted Time A Body Mass Index follow-up plan has been documented for the patient 06/30/2024 1:58 PM EDT documented as of this encounter Care Teams Tooling Inspector Relationship Specialty Start Date End Date Osmani Becker MD formerly [facility] [place] [address] PCP - General 01/30/21 documented as of this encounter
--- OUTSIDE RECORDS SUMMARY | 2025-05-31 05:52 | XMS_ITS | Encounter Summary ---
Author Organization Healthcare Address [facility] [place] [address] Care Team Providers Care Shoelace Tipping Machine Operator Name Role Phone Osmani Becker MD Primary Care Provider [phone] Encounter Details Date Type Department Care Team (Latest Contact Info) Description 05/06/2025 Travel Social History Tobacco Use Types Packs/Day Years [...] and Family Not on file 06/25/2024 Attends Christianity Services Not on file 06/25 Active Member [...] place to sleep or slept in a senior care (including now)? No 06/25/2024 CAGE ASSESSMENT Answer [...] drink first t jacqueline in the morning (EYE-DOCTOR OF DENTAL SURGERY) to steady your nerves or to get [...] file Travel History Travel Start Travel End [place] 04/05/2025 05/06/2025 documented as of this encounter Functional Status * Calculated C-SSRS [...] Haider RN documented as of this encounter Plan of Treatment Upcoming Encounters Date Type Department Care Team (Late st Contact Info) Description 06/04/2025 12:15 PM EDT Appointment [facility] Interventional Radiology [address] [place] [address] 07/05/2025 1:00 PM EDT Consult [facility] [address] [place] [address] Sobia Goldberg PA [address] [place] [address] documented as of this encounter Visit Diagnoses Not on filedocumented in this encounter Additional Health Concerns Assessment Noted Time A Body Mass Index follow-up plan has been documented for the patient 06/30/2024 1:58 PM EDT documented as of this encounter Care Teams Shoelace Tipping Machine Operator Relationship Specialty Start Date End Date Osmani Becker MD [address] [facility] [address] [place] [address] PCP - General 01/30/21 documented as of this encounter
--- OUTSIDE RECORDS SUMMARY | 2025-05-31 05:52 | XMS_ITS | Clinical Summary ---
Author Organization [facility] Address [address] [place] [address] Care Team Providers Care Keg Varnisher Name Role Phone Osmani Becker MD Primary Care Provider [phone] Allergies Active Allergy Reactions Criticality Noted Date Comments Insulin Glargine Other - please docum ent in the comment field Low 06/21/2024 Lisinopril Cough,Unknown - Diamond ent states they do not know rxn details Low 07/18/2012 Cough Medications albuterol 108 (90 Base) MCG/ACT inhaler Inhale 2 puffs every 6 (six) hours if needed for shortness of breath. Active atorvastatin (Lipitor) 80 MG tablet Take 1 tablet (80 mg) by mouth every night. Active clopidogrel (Plavix) 75 MG tablet Take 1 tablet (75 mg) by mouth 1 (one) time each day. Active oxyCODONE-acetam inophen (Percocet) 10-325 MG tablet Take 1 tablet by mouth every 6 (six) hours if needed for severe pain. Active pantoprazole (ProtoNix) 20 MG EC tablet Take 1 tablet (20 mg) by mouth 1 (one) time each day before breakfast. Do not crush, chew, or split. Active topiramate (Topamax) 25 MG tablet Take 1 tablet (25 mg) by mouth every night. Active cloNIDine (Catapres) 0.1 MG tablet Take 1 tablet (0.1 mg) by mouth 2 (two) times a day if needed. If systolic blood pressure is greater than 180 Active lactulose (Chronulac) 10 GM/15ML solution Take 15 mL (10 g) by mouth 1 (one) time each day if needed (constipation) . Active ergocalciferol (Vitamin D-2) 1.25 MG (57543 UT) capsule Take 1 capsule (50,000 Units) by mouth every 14 (fourteen) days. Active NIFEdipine XL (Procardia XL) 90 MG 24 hr tablet Take 1 tablet (90 mg) by mouth 1 (one) time each day. Do not crush, chew, or split. 30 tablet 4 Active hydrALAZINE (Apresoline) 100 MG tablet Take 1 tablet (100 mg) by mouth 3 (three) times a day. 90 tablet 4 Active carvedilol (Coreg) 25 MG tablet Take 1 tablet (25 mg) by mouth 2 (two) times a day with meals. 2 tablet 4 Active doxazosin (Cardura) 2 MG tablet Take 1 tablet (2 mg) by mouth every night. 2 tablet 4 Active ezetimibe (Zetia) 10 MG tablet Take 1 tablet (10 mg) by mouth 1 (one) time each day. 2 tablet 4 Active isosorbide mononitrate ER (Imdur) 60 MG 24 hr tablet Take 2 tablets (120 mg) by mouth 1 (one) time each day in the morning for 2 days. Do not crush or chew. 4 tablet 4 Active levothyroxine (Synthroid, Levoxyl) 75 MCG tablet Take 1 tablet (75 mcg) by mouth 1 (one) time each day before breakfast. 2 tablet 4 Active valsartan (Diovan) 80 MG tablet Take 1 tablet (80 mg) by mouth 2 (two) times a day for 2 days. 4 tablet 4 Active Active Problems Problem Noted Date Diagnosed Date ESRD (end stage renal disease) 06/22/2024 Volume overload 06/21/2024 Encounters Date Type Department Care Team Description 05/21/2025 Telephone [facility] Urology [address] [place] [address] Clarice Zhou I, CHAO 05/15/2025 Telephone [facility] [address], [address] [place] [address] Clarice Zhou I, RN 05/13/2025 Orders Only [facility] Nephrology, Bone & Mineral Metabolism [address], [address] [place] [id number] Tiny Summers MD Renal mass (Primary Dx) 05/06/2025 1:27 PM EDT - 05/06/2025 8:09 PM EDT Emergency [facility] Emergency Department [address] [place] [address] Sena Navarro MD Renal mass (Primary Dx); ESRD (end stage renal disease) ([facility]) Discharge Disposition: Home or Self Care 05/06/2025 Travel 05/05/2025 4:00 PM EDT - 05/05/2025 6:01 PM EDT Emergency [facility] Emergency Department [address] [place] [address] Neno Elizabeth MD ESRD (end stage renal disease) on dialysis ([facility]) (Primary Dx); Elevated TSH; Hyperphosphatemia Discharge Disposition: Home or Self Care 05/05/2025 Travel from Last 3 Months Immunizations Immunization Administration Dates Next Due Influenza, Unspecified 10/30/2010 Family History Medical History Relation Name Comments Diabetes Father Hyperlipidemia Father Hypertension Father Other cancer Father Diabetes Mother Hyperlipidemia Mother Hypertension Mother Other cancer Mother Relation Name Status Comments Father Mother Social History Tobacco Use Types Packs/Day Years [...] and Family Not on file 06/25/2024 Attends [employer] Not on file 06/25 Active Member [...] place to sleep or slept in a skilled nursing (including now)? 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 0 06/21/2024 CAGE Questionnaire Score 0 024 Utilities Answer Date Recorded In the past 12 months has th e electric, gas, oil, or water [employer] threatened to shut off services in your home? No 06/25/2024 Comments Unknown Sex and Gender Information Value Date Recorded Sex Assigned at Female 07/03/2024 2:13 PM EDT Legal Sex Female 7:39 PM EDT Gender Identity Not on file Sexual Orientation Not on file Travel History Travel Start Travel End [place] 04/05/2025 05/06/2025 Last Filed Vital Signs Vital Sign Reading Time Taken Comments Blood Pressure 175/68 05/06/2025 7:57 PM EDT Pulse 55 05/06/2025 7:57 PM EDT Temperature 36.3 C (97.3 F) 05/06/2025 7:57 PM EDT Respiratory Rate 16 05/06/2025 7:57 PM EDT Oxygen Saturation 93% 05/06/2025 7:57 PM EDT Inhaled Oxygen Concentration - - Weight 59 kg (130 lb) 05/06/2025 1:12 PM EDT Height 170.2 cm (5' 7 ) 05/05/2025 2:40 PM EDT Body Mass Index 20.36 05/05/2025 2:40 PM EDT Plan of Treatment Upcoming Encounters Date Type Department Care Team (Late st Contact Info) Description 06/04/2025 12:15 PM EDT Appointment [facility] Interventional Radiology [address] [place] [address] 07/05/2025 1:00 PM EDT [facility] [address] [place] [address] Sobia Goldberg, RIGO [address] [place] [address] Health Maintenance Due Date Last Done Comments [facility]-Depression Screening 1969 [facility]-Medicare Annual Wellness (AWV) 1970 [facility]-Infant/Child/Adol SDOH Screenings 1969 [id number] Vaccine (#1) 1974 Diabetes: Dental Exam 1979 [facility]-Pneumococcal Vaccine: 50 + Years (1 of 2 - PCV) 1988 [facility]-Hepatitis B Vaccines (2 of 5 - Risk Dialysis 4-dose series) 06/01/2007 05/04/2007 CT Colonography 2014 Colonoscopy 2014 FIT-DNA 2014 FIT 2014 FOBT 2014 Sigmoidoscopy 2014 [facility]-Colorectal Cancer Screening 2014 [facility]-DTaP,Tdap,and Td Vaccine s (1 - Tdap) 03/07/2016 03/06/2016 [facility]-Breast Cancer Screening 2019 [facility]-Zoster Vaccines (1 of 2) 2019 [facility]- SDOH Screenings 12/24/2024 [facility]-Adult SDOH Screenings 12/24/2024 06/25/2024 [facility]-Diabetes: Hemoglobin A1C 12/28/2024 06/30/2024 [facility]-Influenza Vaccine (#1) 05/20/202506/25, 09/27/2012, 10/30/2010 [facility]-HIV Screening Completed 06/21/2024 [facility]-Hepatitis C Screening Completed 2024, 06/24/2024, 06/21/2024 HPV Vaccines Aged Out No longer eligi ble based on patient's age to complete this topic [facility]-HIB Vaccines Aged Out No longer e ligible based on patient's age to complete this topic [facility]-Hepatitis A Vaccines Aged Out No longer eligible based on patient's age to complete this topic [facility]-IPV Vaccines Aged Out No longer e ligible based on patient's age to complete this topic [facility]-Rotavirus Vaccines Aged Out No lo nger eligible based on patient's age to complete this topic Procedures Procedure Name Priority Date/Time Associated Diagnosis Comments HEMODIALYSIS INPATIENT Routine 4:35 PM EDT QUANTIFERON TB GOLD PLUS STAT 05/06/2025 4:22 PM EDT HEPATITIS B SURFACE ANTIBODY, QUANTITATIVE STAT 05/06/2025 4:22 PM EDT ACUTE HEPATITIS PANEL STAT 05/06/2025 4:22 PM EDT BASIC METABOLIC PANEL, PLASMA STAT 05/06/2025 1:25 PM EDT CBC WITH AUTO DIFFERENTIAL STAT 05/06/2025 1:25 PM EDT TYPE AND SCREEN STAT 05/05/2025 4:24 PM EDT BLOOD GAS PANEL, VENOUS STAT 05/05/2025 4:24 PM EDT FREE T4, PLASMA STAT 05/05/2025 4:24 PM EDT TSH STAT 05/05/2025 4:24 PM EDT PHOSPHORUS, PLASMA STAT 05/05/2025 4: 24 PM EDT MAGNESIUM, PLASMA STAT 05/05/2025 4:2 4 PM EDT CBC WITH AUTO DIFFERENTIAL STAT 05/05/2025 4:24 PM EDT COMPREHENSIVE METABOLIC PANEL, PLASMA STAT 05/05/2025 4:24 PM EDT ECG ADULT STAT 05/05/2025 3:49 PM EDT HEMOGLOBIN A1C Pending Discharge 06/30/2024 11:32 AM EDT ED HIV 1/2 ANTIBODY/ANTIGEN SCREEN WITH REFLEX TO HIV I/II DIFFERENTIATION STAT 06/21/2024 4:48 PM EDT from Last 3 Months or Most Recently Relevant to Health Maintenance Results * Hepatitis B Surface Antibody, Quantitative (05/06/2025 4:22 PM EDT) Hepatitis B Surface Antibody, Quantitative <8.00 NonReactiv e: <8, Grayzone: 8 - <12, Reactive: >= 12 mIU/mL 05/06/2025 7:20 PM EDT [facility] Comment: Nonreactive. Individual is considered not immune to HBV infection. Blood Venous blood specimen / Unknown Venipuncture / Unknown 05/06/2025 4:22 PM EDT 05/06/2025 4:46 PM EDT us Sumi Land MD LAB BLOOD ORDERABLES Final Res ult Performing Organization Address [facility]/ZIP Co de Phone Number [facility] [address] [place] [address] * Hepatitis panel, acute (05/06/2025 4:22 PM EDT) Pathologist [facility] Hepatitis B Surf Antigen Negative Negative 05/06/2025 7:24 PM EDT [facility] Hepatitis C Antibody Negative Negative 05/06/2025 7:24 PM EDT [facility] Hepatitis A Antibody IgM Negative Negative 05/06/2025 7:24 PM EDT [facility] Hepatitis B Core Antibody IgM Negative Negative 05/06/2025 7:24 PM EDT [facility] Blood Venous blood specimen / Unknown Venipuncture / Unknown 05/06/2025 4:22 PM EDT 05/06/2025 4:47 PM EDT us Sumi Land MD LAB BLOOD ORDERABLES Final Res ult Performing Organization Address City/[facility]/ZIP Co de Phone Number [facility] [address] [place] [address] * Quantiferon TB Gold (05/06/2025 4:22 PM EDT) [facility] Quantiferon TB Gold Plus Result Negative Negative 05/07/2025 8:11 PM EDT [facility] TB Nill Value 0.0799 IU/mL 05/07/2025 8:11 PM EDT [facility] TB Antigen 1 -0.0075 IU/mL 05/07/2025 8:11 PM EDT [facility] TB Antigen 2 0.0026 IU/mL 05/07/2025 8:11 PM EDT [facility] TB Mitogen 9.9201 IU/mL 05/07/2025 8:11 PM EDT [facility] Blood Venous blood specimen / Unknown Venipuncture / Unknown 05/06/2025 4:22 PM EDT 05/06/2025 4:56 PM EDT Narrative [facility] - 05/07/2025 8:11 PM EDT Responses to the Mitogen positive control and occasionally to TB antigen can be above the assay range. For calculation purposes: IFN-gamma values > 10 IU/mL are handled as 10 IU/mL. us Sumi Land MD LAB BLOOD ORDERABLES Final Res ult [facility] [address] [place] [address] * (ABNORMAL) CBC w/diff (05/06/2025 1:25 PM EDT) Only the most recent of2 resultswithin the time period is included. WBC Count 5.44 3.70 - 10.30 10*3/uL LAB HEMATOLOGY METHOD 05/06/2025 4:07 PM EDT [facility] RBC Count 3.16(L) 3.90 - 5.20 10*6/uL LAB HEMATOLOGY METHOD 05/06/2025 4:07 PM EDT [facility] HGB 9.3(L) 11.2 - 15.7 g/dL LAB HEMATOLOGY METHOD 05/06/2025 4:07 PM EDT [facility] HCT 31.7(L) 34.0 - 45.0 % LAB HEMATOLOGY METHOD 05/06/2025 4:07 PM EDT [facility] Platelet Count 42(L) 155 - 369 10*3/uL LAB HEMATOLOGY METHOD 05/06/2025 4:07 PM EDT [facility] MCV 100(H) 79 - 98 fL LAB HEMATOLOGY METHOD 05/06/2025 4:07 PM EDT [facility] MCH 29.4 26.0 - 32.0 pg LAB HEMATOLOGY METHOD 05/06/2025 4:07 PM EDT [facility] MCHC 29.3(L) 30.7 - 35.5 g/dL LAB HEMATOLOGY METHOD 05/06/2025 4:07 PM EDT [facility] RDW 15.1(H) 11.5 - 14.5 % LAB HEMATOLOGY METHOD 05/06/2025 4:07 PM EDT [facility] MPV LAB HEMATOLOGY METHOD 05/06/2025 4:07 PM EDT [facility] Comment:Not Measured nRBC 0.0 <=0.0 per 100 WBCs LAB HEMATOLOGY METHOD 05/06/2025 4:07 PM EDT [facility] Differential Type Automated LAB HEMATOLOGY METHOD 05/06/2025 4:07 PM EDT [facility] Neutrophils % 74 % LAB HEMATOLOGY METHOD 05/06/2025 4:07 PM EDT [facility] Lymphocytes % 14 % LAB HEMATOLOGY METHOD 05/06/2025 4:07 PM EDT [facility] Monocytes % 9 % LAB HEMATOLOGY METHOD 05/06/2025 4:07 PM EDT [facility] Eosinophils % 2 % LAB HEMATOLOGY METHOD 05/06/2025 4:07 PM EDT [facility] Basophils % 1 % LAB HEMATOLOGY METHOD 05/06/2025 4:07 PM EDT [facility] Immature Granulocytes % 0 % LAB HEMATOLOGY METHOD 05/06/2025 4:07 PM EDT [facility] Neutrophils Absolute 4.04 1.60 - 6.10 10*3/uL LAB HEMATOLOGY METHOD 05/06/2025 4:07 PM EDT [facility] Lymphocytes Absolute 0.74(L) 1.20 - 3.90 10*3/uL LAB HEMATOLOGY METHOD 05/06/2025 4:07 PM EDT [facility] Monocytes Absolute 0.48 0.30 - 0.90 10*3/uL LAB HEMATOLOGY METHOD 05/06/2025 4:07 PM EDT [facility] Eosinophils Absolute 0.11 0.00 - 0.50 10*3/uL LAB HEMATOLOGY METHOD 05/06/2025 4:07 PM EDT [facility] Basophils Absolute 0.05 0.00 - 0.10 10*3/uL LAB HEMATOLOGY METHOD 05/06/2025 4:07 PM EDT [facility] Immature Granulocytes Absolute 0.02 0.00 - 0.06 10*3/uL LAB HEMATOLOGY METHOD 05/06/2025 4:07 PM EDT [facility] Blood Venous blood specimen / Unknown Venipuncture / Unknown 05/06/2025 1:25 PM EDT 05/06/2025 1:27 PM EDT [facility] - 05/06/2025 4:07 PM EDT Therapeutic decision making should be based on absolute values, rather than percentages. us Sena Navarro MD LAB BLOOD ORDERABLES Final Resu lt [facility] [address] [place] [address] * (ABNORMAL) BMP (05/06/2025 1:25 PM EDT) Glucose, Plasma 174(H) 74 - 99 mg/dL 05/06/2025 1:50 PM EDT [facility] BUN, Plasma 74(H) 7 - 21 mg/dL 05/06/2025 1:50 PM EDT [facility] Creatinine, Plasma 5.20(H) 0.60 - 1.10 mg/dL 05/06/2025 1:50 PM EDT [facility] BUN/Creatinine Ratio 14 05/06/2025 1:50 PM EDT [facility] Sodium, Plasma 136 136 - 145 mmol/L 05/06/2025 1:50 PM EDT [facility] Potassium, Plasma 3.4(L) 3.6 - 4.9 mmol/L 05/06/2025 1:50 PM EDT [facility] Chloride, Plasma 96(L) 97 - 107 mmol/L 05/06/2025 1:50 PM EDT [facility] CO2, Plasma 20(L) 22 - 29 mmol/L 05/06/2025 1:50 PM EDT [facility] Anion Gap 20(H) 6 - 16 mmol/L 05/06/2025 1:50 PM EDT [facility] Total Calcium, Plasma 7.0(L) 8.9 - 10.2 mg/dL 05/06/2025 1:50 PM EDT [facility] eGFRcr 9.2 mL/min/1.7 3m*2 05/06/2025 1:50 PM EDT [facility] Comment:Reported eGFRcr in m L/min/1.73m2 is based the CKD-EPI 2020 equation that does not use a race coefficient. Blood Venous blood specimen / Unknown Venipuncture / Unknown 05/06/2025 1:25 PM EDT 05/06/2025 1:27 PM EDT Sena Navarro MD LAB BLOOD ORDERABLES Final Resu lt Performing Organization Address [facility] Co de Phone Number [facility] [address] [place] [address] * Type and screen (05/05/2025 4:24 PM EDT) ABO/Rh O Positive 05/05/2025 3:43 PM EDT [facility]LO[facility] Antibody Screen Negative 05/05/2025 3:43 PM EDT [facility] Specimen Expiration 05/08/2025 23:59 05/05/2025 3:43 PM EDT [facility] Blood Venous blood specimen / Unknown Venipuncture / Unknown 05/05/2025 4:24 PM EDT 05/05/2025 4:30 PM EDT Adalberto Feliz MD LAB BLOOD BANK TEST ORDERABLES Final Result Performing Organization Address [facility] de Phone Number BLOOD BANK [address] [place] [address], * (ABNORMAL) Thyroid Stimulating Hormone, Plasma (05/05/2025 4:24 PM EDT) Thyroid Stimulating Hormone, Plasma 12.22(H) 0.40 - 4.20 uIU/mL 05/05/2025 4:57 PM EDT [facility] Blood Venous blood specimen / Unknown Venipuncture / Unknown 05/05/2025 4:24 PM EDT 05/05/2025 4:29 PM EDT Narrative [facility] - 05/05/2025 4:57 PM EDT Trimester Specific Ranges TSH ( IU/mL) 1st Trimester 0.1 - 3.0 2nd Trimester 0.19 - 4.06 3rd Trimester 0.3 - 3.7 Adalberto Feliz MD LAB BLOOD ORDERABLES Final Res ult Performing Organization Address City/[facility] Co de Phone Number [facility] [address] [place] [address] * Free T4, Plasma (05/05/2025 4:24 PM EDT) Free T4, Plasma 0.8 0.8 - 1.7 ng/dL 05/05/2025 4:57 PM EDT [facility] Blood Venous blood specimen / Unknown Venipuncture / Unknown 05/05/2025 4:24 PM EDT 05/05/2025 4:29 PM EDT Narrative [facility] - 05/05/2025 4:57 PM EDT Free T4 Trimester Specific Ranges 1st Trimester 0.9 - 1.50 ng/dL 2nd Trimester 0.7 - 1.40 ng/dL 3rd Trimester 0.7 - 1.24 ng/dL Adalberto Feliz MD LAB BLOOD [place] [address] * (ABNORMAL) Phosphorus (05/05/2025 4:24 PM EDT) Phosphorus, Plasma 7.0(H) 2.5 - 4.5 mg/dL 05/05/2025 4:57 PM EDT [facility] Blood Venous blood specimen / Unknown Venipuncture / Unknown 05/05/2025 4:24 PM EDT 05/05/2025 4:29 PM EDT Adalberto Feliz MD LAB BLOOD ORDERABLES Final Res ult [facility] [address] [place] [address] * (ABNORMAL) Magnesium (05/05/2025 4:24 PM EDT) Magnesium, Plasma 1.6(L) 1.9 - 2.4 mg/dL 05/05/2025 4:57 PM EDT [facility] Blood Venous blood specimen / Unknown Venipuncture / Unknown 05/05/2025 4:24 PM EDT 05/05/2025 4:29 PM EDT us Adalberto Feliz MD LAB BLOOD ORDERABLES Final Res ult [facility] [address] [place] [address] * (ABNORMAL) Blood gas panel, venous (05/05/2025 4:24 PM EDT) pH, Venous 7.30(L) 7.32 - 7.43 LAB HEMATOLOGY METHOD 05/05/2025 4:31 PM EDT [facility] pCO2, Venous 50 37 - 52 mmHg LAB HEMATOLOGY METHOD 05/05/2025 4:31 PM EDT [facility] pO2, Venous 35 25 - 40 mmHg LAB HEMATOLOGY METHOD 05/05/2025 4:31 PM EDT [facility] SO2, Measured, Venous 56(L) 65 - 80 % LAB HEMATOLOGY METHOD 05/05/2025 4:31 PM EDT [facility] Base Excess, Venous -2.2(L) -2.0 - 3.0 mmol/L LAB HEMATOLOGY METHOD 05/05/2025 4:31 PM EDT [facility] Bicarbonate, Calculated, Venous 25 22 - 26 mmol/L LAB HEMATOLOGY METHOD 05/05/2025 4:31 PM EDT [facility] Hematocrit, Whole Blood 31.2(L) 34.0 - 45.0 % LAB HEMATOLOGY METHOD 05/05/2025 4:31 PM EDT [facility] Sodium, Whole Blood 137 136 - 145 mmol/L LAB HEMATOLOGY METHOD 05/05/2025 4:31 PM EDT [facility] Potassium, Whole Blood 3.5(L) 3.6 - 4.9 mmol/L LAB HEMATOLOGY METHOD 05/05/2025 4:31 PM EDT [facility] Chloride, Whole Blood 97 97 - 107 mmol/L LAB HEMATOLOGY METHOD 05/05/2025 4:31 PM EDT [facility] Glucose, Whole Blood 146(H) 74 - 99 mg/dL LAB HEMATOLOGY METHOD 05/05/2025 4:31 PM EDT [facility] Lactate, Venous, Whole Blood 0.7 0.5 - 2.2 mmol/L LAB HEMATOLOGY METHOD 05/05/2025 4:31 PM EDT [facility] Ionized Calcium, Whole Blood 3.9(L) 4.6 - 5.1 mg/dL LAB HEMATOLOGY METHOD 05/05/2025 4:31 PM EDT [facility] Blood Venous blood specimen / Unknown Venipuncture / Unknown 05/05/2025 4:24 PM EDT 05/05/2025 4:29 PM EDT us Adalberto Feliz MD LAB BLOOD ORDERABLES Final Res ult [facility] [address] [place] [address] * (ABNORMAL) CMP (05/05/2025 4:24 PM EDT) Glucose, Plasma 150(H) 74 - 99 mg/dL 05/05/2025 4:57 PM EDT [facility] BUN, Plasma 63(H) 7 - 21 mg/dL 05/05/2025 4:57 PM EDT [facility] Creatinine, Plasma 4.23(H) 0.60 - 1.10 mg/dL 05/05/2025 4:57 PM EDT [facility] BUN/Creatinine Ratio 15 05/05/2025 4:57 PM EDT [facility] Sodium, Plasma 137 136 - 145 mmol/L 05/05/2025 4:57 PM EDT [facility] Potassium, Plasma 3.6 3.6 - 4.9 mmol/L 05/05/2025 4:57 PM EDT [facility] Chloride, Plasma 96(L) 97 - 107 mmol/L 05/05/2025 4:57 PM EDT [facility] CO2, Plasma 22 22 - 29 mmol/L 05/05/2025 4:57 PM EDT [facility] Anion Gap 19(H) 6 - 16 mmol/L 05/05/2025 4:57 PM EDT [facility] Total Calcium, Plasma 7.5(L) 8.9 - 10.2 mg/dL 05/05/2025 4:57 PM EDT [facility] Total Protein 6.6 6.3 - 7.9 g/dL 05/05/2025 4:57 PM EDT [facility] Albumin, Plasma 3.7 3.5 - 5.2 g/dL 05/05/2025 4:57 PM EDT [facility] AST, Plasma 20 10 - 35 U/L 05/05/2025 4:57 PM EDT [facility] ALT, Plasma <5(L) 10 - 35 U/L 05/05/2025 4:57 PM EDT [facility] Alkaline Phosphatase, Plasma 159(H) 35 - 104 U/L 05/05/2025 4:57 PM EDT [facility] Total Bilirubin, Plasma 0.5 0.2 - 1.1 mg/dL 05/05/2025 4:57 PM EDT [facility] eGFRcr 11.8 mL/min/1.7 3m*2 05/05/2025 4:57 PM EDT [facility] Comment:Reported eGFRcr in m L/min/1.73m2 is based the CKD-EPI 2020 equation that does not use a race coefficient. Blood Venous blood specimen / Unknown Venipuncture / Unknown 05/05/2025 4:24 PM EDT 05/05/2025 4:29 PM EDT us Adalberto Feliz MD LAB BLOOD ORDERABLES Final Res ult [facility] [address] [place] [address] * EKG now - STAT (adult) (05/05/2025 3:49 PM EDT) EKG DIAGNOSIS CLASS Abnormal MUSE ECG Ventricular Rate 53 BPM MUSE ECG Atrial Rate 53 BPM MUSE ECG NE Interval 142 ms MUSE ECG QRSD Interval 110 ms MUSE ECG QT Interval 488 ms MUSE ECG QTC Interval 457 ms MUSE ECG P [place] 55 degrees MUSE ECG R [place] 105 degrees MUSE ECG T Wave [place] 171 degrees MUSE ECG Diagnosis Sinus bradycardia MUSE ECG Diagnosis Rightward axis MUSE ECG Diagnosis Cannot rule out Inferior infarct , age undetermined MUSE ECG Diagnosis Cannot rule out Anterior infarct , age undetermined MUSE ECG Diagnosis Nonspecific T wave abnormality MUSE ECG Diagnosis Abnormal ECG MUSE ECG Diagnosis MUSE ECG Diagnosis Confirmed by Mariano Styles ([id number]) on 05/05/2025 6:58:31 PM MUSE ECG 05/05/2025 3:49 PM EDT 05/05/2025 6:58 PM EDT us Adalberto Feliz MD ECG ORDERABLES Final Result MUSE ECG * (ABNORMAL) Hemoglobin A1c (06/30/2024 11:32 AM EDT) Hemoglobin A1c 5.7(H) <5.7 % 06/30/2024 1:16 PM EDT [facility] Blood Venous blood specimen / Unknown Venipuncture / Unknown 06/30/2024 11:32 AM EDT 06/30/2024 12:28 PM EDT Narrative [facility] - 06/30/2024 1:16 PM EDT HA1C Interpretive Data: Diagnosis of Diabetes: Diabetic > or = 6.5% Pre-diabetic 5.7 to 6.4% Non-diabetic < or = 5.6% Glycemic Targets for Type I and Type II Diabetics: Non- Adults <7.0% Adults <6.0% Children and Adolescents <7.5% Source: [place] [employer]. Standards of medical care in diabetes,2017. Diabetes Care.2017:40 (suppl 1):S1-S135. HbA1c assay performed by an ion-exchange chromatography method that is certified traceable to the DCCT. us Jemal Nolan MD LAB BLOOD ORDERABLES Final Resul t [facility] [address] [place] [address] * ED HIV 1/2 Antibody/Antigen Screen w/Reflex to HIV 1/2 Differentiation (06/21/2024 4:48 PM EDT) HIV 1 & 2 Antibody/Antigen Screen Non Reactive Non Reactive 06/21/2024 6:09 PM EDT [facility] Comment:Screening for HIV 1 & 2 antibodies, and P24 antigen is NONREACTIVE. No confirmatory testing is required. Blood Venous blood specimen / Unknown Venipuncture / Unknown 06/21/2024 4:48 PM EDT 06/21/2024 5:26 PM EDT us Douglas Thurman MD LAB BLOOD ORDERABLES Final Resul t [facility] [address] [place] [address] from Last 3 Months or Most Recently Relevant to Health Maintenance [place] [address] [place] [address] MEDICARE Advance Directives * Full Code (Latest Code Status on File) Date Activated Date Inactivated Comments 06/21/2024 9:06 PM 06/30/2024 5:16 PM Question Answer Comments Patient has decision-making capacity? Yes Care Teams Keg Varnisher Relationship Specialty Start Date End Date Osmani Becker MD [address] [facility] [address] [place] [address] PCP - General 01/30/21
--- OUTSIDE RECORDS SUMMARY | 2025-05-31 05:52 | XMS_ITS | Encounter Summary ---
Author Organization Healthcare Address [address] [id number] Care Team Providers Care Combat Systems Officer Name Role Phone Osmani Becker MD Primary Care Provider [phone] Reason for Referral * Consultation (Routine) - Closed Specialty Diagnoses / Procedures Referred By Rebeca reynolds Referred To Contact Hematology and Oncology / Urology Diagnoses Renal mass Tiny Summers MD [address] [place] [address] Phone: tel: fax: [facility] [address], [address] [place] [address] Phone: tel: fax: Referral ID Status Reason Start Date Expiration Date V isits Requested Visits Authorized [id number] Closed Specialty Services Required 05/13/2025 11/12/2026 1 1 Scheduling Instructions Renal mass suspicious for RCC Encounter Details Date Type Department Care Team (Late st Contact Info) Description 05/13/2025 Orders Only Professional [facility] Nephrology, Bone & Mineral Metabolism [address] [facility], [address] [place] [address] Tiny Summers MD [address] [place] [address] Renal mass (Primary Dx) Social History Tobacco Use Types Packs/Day Years [...] and Family Not on file 06/25/2024 Attends [employer] Services Not on file 06/25 Active Member [...] to sleep or slept in a senior living (including now)? No 06/25/2024 CAGE ASSESSMENT Answer [...] drink first t jacqueline in the morning (EYE-PROFESSOR OF CRIMINAL JUSTICE) to steady your nerves or to get [...] file Travel History Travel Start Travel End [place] 04/05/2025 05/06/2025 documented as of this encounter Plan of Treatment Upcoming Encounters Date Type Department Care Team (Late st Contact Info) Description 06/04/2025 12:15 PM EDT Appointment PAV A Interventional Radiology [address] [place] [address] 07/05/2025 1:00 PM EDT Consult [facility] [address] [place] [address] Sobia Goldberg PA [address] [place] [address] Scheduled Referrals Name Type Priority Associated Diagnoses Order Schedule Ambulatory referral to Urology Outpatient Referral Routine Renal mass Expected: 05/13/2025 (Approximate), Expires: 11/14/2026 documented as of this encounter Visit Diagnoses Diagnosis Renal mass- Primary Unspecified disorder of kidney and ureter documented in this encounter Additional Health Concerns Assessment Noted Time A Body Mass Index follow-up plan has been documented for the patient 06/30/2024 1:58 PM EDT documented as of this encounter Care Teams Combat Systems Officer Relationship Specialty Start Date End Date Osmani Becker MD [address] [place] [id number] PCP - General 01/30/21 documented as of this encounter
--- OUTSIDE RECORDS SUMMARY | 2025-05-31 05:52 | XMS_ITS | Clinical Summary ---
Author Organization [facility] Address [address] [place] [address] Care Team Providers Care Foreign Language Professor Name Role Phone Osmani Becker MD Primary Care Provider [phone] Allergies Active Allergy Reactions Criticality Noted Date Comments Lisinopril Cough Medium 07/02/2024 Morphine And Codeine Hives,Itching 07/08/2016 Medications Gabapentin, Once-Daily, 300 MG tablet Take 1 tablet by mouth 2 (Two) Times a Day. 10/31/2013 Active aspirin EC 325 MG tablet Take 1 tablet by mouth Daily. 1 07/06/2016 Active pantoprazole (PROTONIX) 40 MG EC tablet Take 1 tablet by mouth Daily. 5 07/06/2016 Active carvedilol (COREG) 25 MG tablet Take 1 tablet by mouth 2 (Two) Times a Day. 10/31/2013 Active metFORMIN (GLUCOPHAGE) 500 MG tablet Take 1 tablet by mouth 2 (Two) Times a Day. 10/31/2013 Active gabapentin (NEURONTIN) 600 MG tablet Take 1 tablet by mouth Every Night. 5 07/06/2016 Active glimepiride (AMARYL) 4 MG tablet Take 0.5 tablets by mouth 2 (Two) Times a Day. 10/31/2013 Active metOLazone (ZAROXOLYN) 10 MG tablet Take 1 tablet by mouth Every Morning. 5 07/06/2016 Active atorvastatin (LIPITOR) 80 MG tablet Take 1 tablet by mouth Daily. 5 07/06/2016 Active fenofibrate 160 MG tablet Take 1 tablet by mouth Daily. 5 07/06/2016 Active potassium chloride (K-DUR) 10 MEQ CR tablet Take 1 tablet by mouth Daily. 5 07/06/2016 Active terbinafine (lamiSIL) 250 MG tablet Take 1 tablet by mouth Daily. 2 07/06/2016 Active isosorbide mononitrate (IMDUR) 60 MG 24 hr tablet Take 1 tablet by mouth Daily. 5 07/06/2016 Active clopidogrel (PLAVIX) 75 MG tablet Take 1 tablet by mouth Daily. 11 07/06/2016 Active amLODIPine (NORVASC) 5 MG tablet Take 1 tablet by mouth Daily. 5 07/06/2016 Active HYDROcodone-acet aminophen (NORCO) 7.5-325 MG per tablet Take 1 tablet by mouth 2 (Two) Times a Day. 0 07/06/2016 Active LANTUS 100 UNIT/ML injection 75 Units Every Night. 5 07/06/2016 Active HUMALOG 100 UNIT/ML injection 5 07/06/2016 Active furosemide (LASIX) 40 MG tablet As Needed. 05/05/2016 Active loratadine (CLARITIN) 10 MG tablet Take 1 tablet by mouth Daily. 5 07/06/2016 Active Active Problems Problem Noted Date Diagnosed Date Carotid stenosis, left 08/08/2016 Heart disease 07/08/2016 Hyperlipidemia 07/08/2016 Hypertension 07/08/2016 Stroke syndrome 07/08/2016 Type 2 diabetes mellitus 07/08/2016 Diabetes mellitus with polyneuropathy 07/08/2016 Family History Medical History Relation Name Comments Cancer Father Diabetes Father Hypertension Father Other Father cardiac disorde r Cancer Mother Diabetes Mother Hypertension Mother Diabetes Other Grandmother Relation Name Status Comments Father Mother Alive Other Grandmother Social History Tobacco Use Types Packs/Day Years Used Date Smoking Tobacco: Every Day Cigarettes 1 30 Smokeless Tobacco: Never Alcohol Use Standard Drinks/Week Comments No 0 (1 standard drink = 0.6 oz pur e alcohol) Abuse Screen Answer Date Recorded Feels Unsafe at Home or Work/School no 07/02/2024 Feels Threatened by Someone no 06/19 Does Anyone Try to Keep You From Having Contact with Others or Doing Things Outside Your Home? no 07/02/2024 Physical Signs of Abuse Present no 07/02/2024 Housing Stability Answer Date Recorded Current Living Arrangements Not on file 06/19 Potentially Unsafe Housing Conditions Not on boris e 06/29/2023 Family and Community Support Answer Zackery e Recorded Help with Day-to-Day Activities Not on file 06/29/2023 Lonely or Isolated Not on file 06/29/2023 Employment Answer Date Recorded Do you want help finding or keeping work or a colt b? Not on file 06/29/2023 Disabilities Answer Date Recorded Concentrating, Remembering, or Making Decisions Difficulty Not on file 06/29/2023 Doing Errands Independently Difficulty Not on fi le 06/29/2023 Education Answer Date Recorded Help with school or training? Not on file Preferred Language Not on file 06/29/2023 Comments Unknown Sex and Gender Information Value Date Recorded Sex Assigned at Not on file Legal Sex Female 12:05 PM EDT Gender Identity Not on file Sexual Orientation Not on file Occupation Industry Job Start Date Job End Date Not on file Not on file Not on file Not on file Last Filed Vital Signs Vital Sign Reading Time Taken Comments Blood Pressure 149/72 07/02/2024 5:00 AM EDT Pulse 60 07/02/2024 5:00 AM EDT Temperature 36.9 C (98.5 F) 07/02/2024 2:27 AM EDT Respiratory Rate 21 07/02/2024 2:27 AM EDT Oxygen Saturation 93% 07/02/2024 5:00 AM EDT Inhaled Oxygen Concentration - - Weight 59.9 kg (132 lb) 07/02/2024 2:27 AM EDT Height 170.2 cm (5' 7 ) 07/02/2024 2:27 AM EDT Body Mass Index 20.67 07/02/2024 2:27 AM EDT Plan of Treatment Health Maintenance Due Date Last Done Comments ANNUAL WELLNESS VISIT 1969 Annual Gynecologic Pelvic an d Breast Exam 1969 LIPID PANEL 1969 DIABETIC EYE EXAM 1979 DIABETIC FOOT EXAM 1979 URINE MICROALBUMIN-CREATININ E RATIO (uACR) 1979 Pneumococcal Vaccine 50+ (1 of 2 - PCV) 1988 Hepatitis B (2 of 3 - 19+ 3- dose series) 06/01/2007 05/04/2007 MAMMOGRAM 2009 COLOGUARD 2014 COLON CANCER SCREENING 5 YEA R SIGMOIDOSCOPY 2014 COLONOSCOPY [address] CANCER SCREENING [address] CT COLONOGRAPHY 2014 FECAL OCCULT BLOOD TEST 2014 FIT Testing (1 year) 2014 TDAP/TD VACCINES (1 - Tdap) 03/07/2016 03/06/2016 ZOSTER VACCINE (1 of 2) 2019 HEMOGLOBIN A1C 12/29/2024 06/30/2024, 06/30/2024 COVID-19 Vaccine ( - 2023- season) 2025 INFLUENZA VACCINE 06/19/2025 06/25/2014, , 10/30/2010 HEPATITIS C SCREENING Completed 06/24/2024, 024 Insurance Care Teams Foreign Language Professor Relationship Specialty Start Date End Date Osmani Becker MD [address] [facility] [address] [place] [address] PCP - General Internal Medicine 07/30/16
--- OUTSIDE RECORDS SUMMARY | 2025-05-31 05:52 | XMS_ITS | Encounter Summary ---
Author Organization [facility] Address [address] [place] [address] Care Team Providers Care Floor Coverings Salesperson Name Role Phone Osmani Becker MD Primary Care Provider [phone] Encounter Details Date Type Department Care Team (Late st Contact Info) Description 12/24/2024 Orders Only External Location [address] [place] [address] Provider, External Social History Tobacco Use Types [...] and Family Not on file 06/25/2024 Attends Yarsani Services Not on file 06/25 Active Member [...] drink first t jacqueline in the morning (EYE-CHILI PEPPER GRINDER) to steady your nerves or to get rid of a hangover? 0 06/21/2024 CAGE Questionnaire Score 0 024 Utilities Answer Date Recorded In the past 12 months has th e [employer], gas, oil, or water company threatened to shut off services in your home? No 06/25/2024 Comments Unknown Sex and Gender Information Value Date Recorded Sex Assigned at Female 07/03/2024 2:13 PM EDT Legal Sex Female 7:39 PM EDT Gender Identity Not on file Sexual Orientation Not on file Travel History Travel Start Travel End [place] 04/05/2025 05/06/2025 documented as of this encounter Plan of Treatment Upcoming Encounters Date Type Department Care Team (Late st Contact Info) Description 06/04/2025 12:15 PM EDT Appointment P[facility] A Interventional Radiology [address] [place] [address] 07/05/2025 1:00 PM EDT Consult [facility] [address] [place] [address] Sobia Goldberg PA [address] [place] [address] documented as of this encounter Procedures Procedure Name Priority Date/Time Associated Diagnosis Comments CT OUTSIDE IMAGES 12/24/2024 4:08 PM EDT documented in this encounter Results * CT OUTSIDE IMAGES (12/24/2024 4:08 PM EDT) Anatomical Region Laterality Modality Computed Tomogra phy 12/24/2024 4:08 PM EDT us External Provider IMG CT PROCEDURES Final Result documented in this encounter Visit Diagnoses Not on filedocumented in this encounter Additional Health Concerns Assessment Noted Time A Body Mass Index follow-up plan has been documented for the patient 06/30/2024 1:58 PM EDT documented as of this encounter Care Teams Floor Coverings Salesperson Relationship Specialty Start Date End Date Osmani Becker MD [address] [address] [place] [address] PCP - General 01/30/21 documented as of this encounter
--- OUTSIDE RECORDS SUMMARY | 2025-05-31 05:52 | XMS_ITS | Encounter Summary ---
Author Organization Healthcare Address [facility] [place] [address] Care Team Providers Care Personal Computer Network Analyst Name Role Phone Osmani Becker MD Primary Care Provider [phone] Encounter Details Date Type Department Care Team (Latest Contact Info) Description 05/05/2025 Travel Social History Tobacco Use Types Packs/Day [...] and Family Not on file 06/25/2024 Attends Confucianism Services Not on file 06/25 Active Member [...] place to sleep or slept in a care home (including now)? No 06/25/2024 CAGE ASSESSMENT Answer [...] drink first t jacqueline in the morning (EYE-SOCIOCULTURAL ANTHROPOLOGY PROFESSOR) to steady your nerves or to get [...] 05/05/2025 4:23 PM EDT Janna Castro, CHAO 2. Non-Specific Active Suicidal Thoughts (Past 1 Month) No 05/05/2025 4:23 PM EDT Janna Castro RN 6. Suicidal Behavior (Lifetime) No 05/05/2025 4:23 PM EDT Janna Castro RN documented as of this encounter Plan of Treatment Upcoming Encounters Date Type Department Care Team (Late st Contact Info) Description 06/04/2025 12:15 PM EDT Appointment PAV A Interventional Radiology [address] [place] [address] 07/05/2025 1:00 PM EDT Consult [facility] [address] [place] [address] Sobia Goldberg PA [address] [place] [address] documented as of this encounter Visit Diagnoses Not on filedocumented in this encounter Additional Health Concerns Assessment Noted Time A Body Mass Index follow-up plan has been documented for the patient 06/30/2024 1:58 PM EDT documented as of this encounter Care Teams Personal Computer Network Analyst Relationship Specialty Start Date End Date Osmani Becker MD [address] [facility] [address] [place] [address] PCP - General 01/30/21 documented as of this encounter
--- OUTSIDE RECORDS SUMMARY | 2025-05-31 05:52 | XMS_ITS | Encounter Summary ---
Author Organization [facility] Address [address] [place] [address] Care Team Providers Care National Van Truck Driver Name Role Phone Osmani Becker MD Primary Care Provider [phone] Encounter Details Date Type Department Care Team (Late st Contact Info) Description 05/21/2025 Telephone [facility] [address] [place] [address] Clarice Zhou I, RN [facility] Social History Tobacco Use Types [...] and Family Not on file 06/25/2024 Attends Latter-Day Services Not on file 06/25 Active Member [...] place to sleep or slept in a prison (including now)? No 06/25/2024 CAGE ASSESSMENT Answer [...] drink first t jacqueline in the morning (EYE-BUILDING RIGGER) to steady your nerves or to get [...] file Travel History Travel Start Travel End [place] 04/05/2025 05/06/2025 documented as of this encounter Miscellaneous Notes * Telephone Encounter - Clarice Zhou I, RN - 05/21/2025 9:43 AM EDT Called to schedule urology appointment; no answer, mailbox full. documented in this encounter Plan of Treatment Upcoming Encounters Date Type Department Care Team (Late st Contact Info) Description 06/04/2025 12:15 PM EDT Appointment PAV A Interventional Radiology [address] [place] [address] 07/05/2025 1:00 PM EDT Consult [facility] Urology [address] [place] [address] Sobia Goldberg PA [address] [place] [address] documented as of this encounter Visit Diagnoses Not on filedocumented in this encounter Additional Health Concerns Assessment Noted Time A Body Mass Index follow-up plan has been documented for the patient 06/30/2024 1:58 PM EDT documented as of this encounter Care Teams National Van Truck Driver Relationship Specialty Start Date End Date Osmani Becker MD [address] [facility] [address] [place] [address] PCP - General 01/30/21 documented as of this encounter
--- OUTSIDE RECORDS SUMMARY | 2025-05-31 05:52 | XMS_ITS | Encounter Summary ---
Author Organization [facility] Address [address] [place] [address] Care Team Providers Care Clinical Informatics Educator Name Role Phone Osmani Becker MD Primary Care Provider [phone] Encounter Details Date Type Department Care Team (Late st Contact Info) Description 02/20/2025 Orders Only External Location [address] [place] [address] Provider, External Social History Tobacco Use Types [...] and Family Not on file 06/25/2024 Attends Sikhism Services Not on file 06/25 Active Member [...] drink first t jacqueline in the morning (EYE-HOLIDAY DETECTOR OPERATOR) to steady your nerves or to get rid of a hangover? 0 06/21/2024 CAGE Questionnaire Score 0 024 Utilities Answer Date Recorded In the past 12 months has th e [employer], gas, oil, or water company threatened to shut off services in your home? No 06/25/2024 Comments Unknown Sex and Gender Information Value Date Recorded Sex Assigned at Female 07/03/2024 2:13 PM EDT Legal Sex Female 7:39 PM EDT Gender Identity Not on file Sexual Orientation Not on file Travel History Travel Start Travel End [place] 04/05/2025 05/06/2025 documented as of this encounter Plan of Treatment Upcoming Encounters Date Type Department Care Team (Late st Contact Info) Description 06/04/2025 12:15 PM EDT Appointment PAV A Interventional Radiology [address] [place] [address] 07/05/2025 1:00 PM EDT Consult [place] [facility] [address] [place] [address] Sobia Goldberg PA [address] [place] [address] documented as of this encounter Procedures Procedure Name Priority Date/Time Associated Diagnosis Comments XR THORACIC OUTSIDE IMAGES 02/20/2025 11:13 AM EDT documented in this encounter Results * XR THORACIC OUTSIDE IMAGES (02/20/2025 11:13 AM EDT) Anatomical Region Laterality Modality Radiographic Amira ging 02/20/2025 11:1 3 AM EDT us External Provider IMG XR PROCEDURES Final Result documented in this encounter Visit Diagnoses Not on filedocumented in this encounter Additional Health Concerns Assessment Noted Time A Body Mass Index follow-up plan has been documented for the patient 06/30/2024 1:58 PM EDT documented as of this encounter Care Teams Clinical Informatics Educator Relationship Specialty Start Date End Date Osmani Becker MD [address] [place] [address] PCP - General 01/30/21 documented as of this encounter
--- OUTSIDE RECORDS SUMMARY | 2025-05-31 05:52 | XMS_ITS | Encounter Summary ---
Author Organization [facility] Address [address] [place] [address] Care Team Providers Care Hydraulic Corrugating Machine Operator Name Role Phone Osmani Becker MD Primary Care Provider [phone] Encounter Details Date Type Department Care Team (Late st Contact Info) Description 02/21/2025 Orders Only External Location [address] [place] [address] Provider, External Social History Tobacco Use Types [...] and Family Not on file 06/25/2024 Attends Yarsanism Services Not on file 06/25 Active Member [...] drink first t jacqueline in the morning (EYE-AP PROCESSOR) to steady your nerves or to get rid of a hangover? 0 06/21/2024 CAGE Questionnaire Score 0 024 Utilities Answer Date Recorded In the past 12 months has th e [employer], gas, oil, or water company threatened to shut off services in your home? No 06/25/2024 Comments Unknown Sex and Gender Information Value Date Recorded Sex Assigned at Female 07/03/2024 2:13 PM EDT Legal Sex Female 7:39 PM EDT Gender Identity Not on file Sexual Orientation Not on file Travel History Travel Start Travel End [place] 04/05/2025 05/06/2025 documented as of this encounter Plan of Treatment Upcoming Encounters Date Type Department Care Team (Late st Contact Info) Description 06/04/2025 12:15 PM EDT Appointment PAV A Interventional Radiology [address] [place] [address] 07/05/2025 1:00 PM EDT Consult [facility] [address] [place] [address] Sobia Goldberg PA [address] [place] [address] documented as of this encounter Procedures Procedure Name Priority Date/Time Associated Diagnosis Comments MR OUTSIDE IMAGES 02/21/2025 1:14 PM EDT documented in this encounter Results * MR transfer of outside films (02/21/2025 1:14 PM EDT) Anatomical Region Laterality Modality Magnetic Resonan ce 02/21/2025 1:14 PM EDT us External Provider IMG MRI PROCEDURES Final Resul t documented in this encounter Visit Diagnoses Not on filedocumented in this encounter Additional Health Concerns Assessment Noted Time A Body Mass Index follow-up plan has been documented for the patient 06/30/2024 1:58 PM EDT documented as of this encounter Care Teams Hydraulic Corrugating Machine Operator Relationship Specialty Start Date End Date Osmani Becker MD [address] [place] [address] PCP - General 01/30/21 documented as of this encounter
--- NOTE | 2025-05-31 05:57 | CT_ITS ---
PROCEDURE INFORMATION: Exam: CT Head Without Contrast Exam date and time: 05/31/2025 6:18 AM Age: 55 years old Clinical indication: Injury or trauma; Additional info: Fall on thinners struck back of head TECHNIQUE: Imaging protocol: Computed tomography of the head without contrast. Radiation optimization: All CT scans at this facility use at least one of these dose optimization techniques: automated exposure control; mA and/or kV adjustment per patient size (includes targeted exams where dose is matched to clinical indication); or iterative reconstruction. COMPARISON: No relevant prior studies available. FINDINGS: Brain: Mild chronic microvascular ischemic disease without acute intraparenchymal hemorrhage and no obvious acute ischemic stroke. No intra-or extra-axial fluid collection, no supra-or infratentorial mass, no mass effect or midline shift. Cerebral ventricles: Mildly dilated ventricles, sulci and basal cisterns without evidence of hydrocephalus. Paranasal sinuses: No significant mucoperiosteal thickening in the visualized paranasal sinuses. Mastoid air cells: Trace mastoid effusion. Bones: Visualized skull bones are grossly normal. Soft tissues: Severe atherosclerotic calcification of the extracranial arteries and intracranial internal carotid/vertebral arteries. Posterior midline scalp hematoma. IMPRESSION: 1. Mild chronic microvascular disease and generalized atrophy without acute intracranial abnormality. 2. No evidence of acute hemorrhage, mass lesion or obvious acute ischemic infarction.
--- NOTE | 2025-05-31 05:57 | CT_ITS ---
PROCEDURE INFORMATION: Exam: CT Cervical Spine Without Contrast Exam date and time: 05/31/2025 6:20 AM Age: 55 years old Clinical indication: Injury or trauma; Additional info: Fall on thinners struck back of head TECHNIQUE: Imaging protocol: Computed tomography of the cervical spine without contrast. Radiation optimization: All CT scans at this facility use at least one of these dose optimization techniques: automated exposure control; mA and/or kV adjustment per patient size (includes targeted exams where dose is matched to clinical indication); or iterative reconstruction. COMPARISON: No relevant prior studies available. FINDINGS: Bones: Loss of normal curvature of the spine, alignment of the vertebral bodies is grossly normal. Bilateral bony cervical ribs. No evidence of acute compression fracture or deformity in the cervical spine. No acute displaced fracture involving the vertebral bodies or their posterior elements. Discs/Spinal canal/Neural foramina: Mild chronic degenerative changes in the cervical spine. Lungs: Large RIGHT, trace LEFT pleural effusion. Soft tissues: Pre-and paravertebral soft tissues are grossly normal. Advanced chronic atherosclerotic calcification of the neck arteries. IMPRESSION: 1. Mild chronic degenerative changes in the cervical spine without an acute bony cervical spine injury or abnormality. 2. Advanced chronic atherosclerotic calcification of the neck arteries. 3. Large RIGHT, trace LEFT pleural effusion. COMMENTS: Recommend followup with MRI if clinically suspicion for discoligamentous/soft tissue or cord abnormality.
[2025-05-31 06:01] VITALS: BP 133/52; BP 155/61; PULSE 48; PULSE 54; RESP 16; TEMP 36.5; O2SAT 92; O2SAT 93; BMI 21.1
--- NOTE | 2025-05-31 06:06 | [facility].EDGENADL ---
Discharge Plan Disposition Patient Disposition: Home, Self-Care Condition: Good Prescriptions Prescriptions: No Action levothyroxine 75 mcg capsule 75 mcg PO DAILY isosorbide mononitrate 60 mg tablet extended release 24 hr 60 mg PO DAILY clopidogrel 75 mg tablet 75 mg PO DAILY pantoprazole 20 mg tablet,delayed release (DR/EC) 20 mg PO DAILY aspirin 325 mg tablet 325 mg PO DAILY doxazosin 2 mg tablet 2 mg PO BID ezetimibe 10 mg tablet 10 mg PO DAILY albuterol sulfate 90 mcg/actuation HFA aerosol inhaler 2 puff inhalation Q6H PRN (Reason: shortness of breath or wheezing) Qty: 8.5 1RF oxycodone-acetaminophen 10-325 mg tablet 1 tab PO Q6H PRN (Reason: pain) Qty: 120 0RF hydralazine 50 mg tablet 50 mg PO Q3H carvedilol 25 mg Tablet 25 mg PO BID Rx Instructions: must administer with a meal/food Referrals Follow up/Referrals: Provider,Referral, MD [Primary Care Provider, Medical] - See instructions Activity Restrictions/Add. Instructions Additional Instructions/Restrictions: You were evaluated in the ER and are believed to be appropriate for discharge at this time. Take your home medications as prescribed. Follow-up with dialysis today as scheduled. Also follow-up with primary care and podiatry as scheduled. Return to the ER with new, worsening, or otherwise concerning symptoms. Clinical Impressions Clinical Impression: Fall, Abrasion of scalp Print Language Print Language: Faroese Discharge ED Provider: Estefania Ball General Adult HPI General Chief complaint: Fall Stated complaint: fall, head Time Seen by Provider: 05/31/25 05:57 History of Present Illness HPI narrative: 55-year-old female with ESRD on dialysis Tuesday/Tuesday/Tuesday, history of COPD, type 2 diabetes with severe neuropathy, CAD with bypass presents to the ER with family caretakers for concerns of fall. They were getting the patient into the shower in her wheelchair this morning to clean her up before dialysis when the wheelchair tipped backwards and she bumped her head. No loss of consciousness. There was small bleeding at the back of the head initially which has already resolved. Patient reports pain in the back of her head. She also complains of left toe pain, family reports patient has been having problems with her neuropathy and has a damaged left great toenail. They have podiatry follow-up scheduled for this already. This is not a new, acute complaint. Patient has no chest pain, no difficulty breathing, no abdominal pain or diarrhea, no new numbness, tingling, or weakness, no recent illness. No other complaints or concerns. Unknown last Tdap Related Data Home Medications ?Medication ?Instructions ?Recorded ?Confirmed aspirin 325 mg tablet 325 mg PO DAILY 03/07/24 05/21/25 clopidogrel 75 mg tablet 75 mg PO DAILY 03/07/24 05/21/25 doxazosin 2 mg tablet 2 mg PO BID 03/07/24 05/21/25 ezetimibe 10 mg tablet 10 mg PO DAILY 03/07/24 05/21/25 isosorbide mononitrate 60 mg 60 mg PO DAILY 03/07/24 05/21/25 tablet,extended release 24 hr levothyroxine 75 mcg capsule 75 mcg PO DAILY 03/07/24 05/21/25 pantoprazole 20 mg tablet,delayed 20 mg PO DAILY 03/07/24 05/21/25 release hydralazine 50 mg tablet 50 mg PO Q3H 04/13/24 05/21/25 carvedilol 25 mg tablet 25 mg PO BID 04/15/24 05/21/25 Previous Rx's ?Medication ?Instructions ?Recorded albuterol sulfate 90 mcg/actuation 2 puff inhalation Q6H PRN 06/14/24 aerosol inhaler shortness of breath or wheezing #8.5 grams oxycodone-acetaminophen 10 mg-325 1 tab PO Q6H PRN pain #120 tabs 06/14/24 mg tablet Allergies Allergy/AdvReac Type Severity Reaction Status Date / Time insulin glargine (From Allergy Intermediate Numbness Verified 05/21/25 11:34 Basaglar KwikPen U-100 Insulin) lisinopril (LISINOPRIL) Allergy Intermediate I-ITCHING Verified 05/21/25 11:34 [facility] Disclaimer: The information contained in this section may have been updated after the patient was seen, as this information can be updated by other users. Medical History HTN (hypertension) Social History Smoking Status: Unknown if ever smoked alcohol intake: never current occupational status: other Travel in the last 8 weeks?: None Other Medical History Have you received the Pneumonia Vaccine: No ROS Obtained: Yes Systems reviewed as appropriate & no additional complaints except as documented Per HPI Physical Exam General General appearance: alert and in no apparent distress Head Head exam: normocephalic and other (Occipital scalp abrasion, hemostatic, no gaping, no laceration) Eye Eye exam: Present EOMI; Absent PERRL (Fixed left pupil, family states this is at baseline, 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), scleral icterus or conjunctival redness ENT ENT exam: Present mucous membranes moist Neck Neck exam: Present normal inspection, full ROM and tenderness (Mild paraspinal, no step-off or deformity, c-collar applied but patient immediately removed it refusing to wear it) Chest Chest inspection: Present symmetric chest wall rise; Absent tenderness Respiratory Respiratory exam: Present normal lung sounds bilaterally; Absent respiratory distress, wheezes or stridor Cardiovascular Cardiovascular exam: Present regular rate and normal rhythm Abdominal Exam Abdominal exam: Present soft; Absent distention, tenderness, guarding or rebound Extremities Exam Extremities exam: Present full ROM and other (Left great toe demonstrates the nail starting to fall off but currently behaving as a natural bandage. No evidence of infection. No evidence of acute traumatic injury. Fistula LUE); Absent edema Back Exam Back exam: Absent paraspinal tenderness or vertebral tenderness Neurological Exam Neurological exam: Present alert, oriented X3 and motor sensory deficit (Baseline decreased sensation in the distal lower extremities secondary to neuropathy, no focal deficits) Psychiatric Psychiatric exam: Present normal affect and normal mood Skin Skin exam: Present warm and dry Medical Decision Making Medical Records Medical records reviewed: Yes I reviewed the patient's medical records. Screening: Per USPSTF and CDC recommendations, given the prevalence of disease in our region, it is our hospital?s policy to screen for HIV and viral Hepatitis for all patients aged 18 and over and those with ongoing risk factors. Skyler Inquiry Pt receiving controlled substance: No Vital Signs: 05/31/25 06:01 05/31/25 06:01 Temperature 97.7 F Temperature Source Oral Pulse Rate 48 L Pulse Rate [Left Radial] 54 L Respiratory Rate 16 Blood Pressure 155/61 H Blood Pressure [Right Arm] 133/52 L Blood Pressure Mean [Right Arm] 79 Blood Pressure Source [Right Arm] Automatic Cuff Blood Pressure Position [Right Arm] Sitting 02 Sat by Pulse Oximetry 93 L 92 L Oxygen Delivery Method Room Air Orders (Tests/Meds): ED MEDICATIONS Discontinued Medications Generic Name Dose Route Start Last Admin Trade Name Kavon PRN Reason Stop Dose Admin Tetanus/Reduced Diphtheria/Acell Pertussis 0.5 ml 05/31/25 05:57 05/31/25 06:44 Tet/Diphth/Pert-Adult 0.5ml Syringe IM 05/31/25 05:58 0.5 ml .ONCE ONE Administration ORDERS Category Date Time Status CT cervical spine wo con Stat Cat Scan 05/31/25 05:[address] head/brain wo con Stat Cat Scan 05/31/25 05:57 Completed Medical Decision Narrative: In summary, this 55-year-old female on blood thinners with comorbidities described in the HPI presents to the emergency department today with fall. On initial evaluation patient is hemodynamically stable, afebrile, no new focal neurologic deficits, baseline decree sensation of the distal lower extremity secondary to neuropathy is present, patient has abrasion on the posterior scalp but no laceration, hemostatic, she has some cervical region tenderness but is refusing to wear the c-collar that was applied. She understands significant risk of permanent neurologic disability or by doing this but is still refusing to wear it. Additionally she has left great toenail that family states appears at baseline, it is currently acting as a natural bandage and I am not going to remove it since she has follow-up scheduled immediately with podiatry. Differential diagnosis includes but is not limited to intracranial bleed, skull fracture, C-spine injury, I considered the possibility of other traumatic injuries but do not appreciate evidence of these. Based on these concerns, I ordered CT imaging. Family called the dialysis center and has her scheduled for 1230 since she missed her morning appointment due to this fall. If she has an acute injury that requires higher level of care, we will transfer her for this of course but I hope to be able to discharge this patient so she can follow-up with dialysis as scheduled. Tdap administered. CT personally interpreted does not demonstrate acute traumatic injury, see radiology read for final interpretation which is in agreement. Patient has pleural effusion but this is not new. She has no respiratory complaints at this time and is saturating well on room air. I have very low suspicion for ligamentous injury in this patient. Her cervical spine discomfort is largely paraspinal and she is actively moving her head around in the room when talking to me and family. She has no paresthesias or other neurologic deficits. No other complaints or concerns. I believe she is appropriate for discharge at this time and patient and family are comfortable with this plan. Patient and family were given instructions on symptomatic monitoring and management, follow up instructions including to keep appointments with dialysis, PCP, and podiatry, and return precautions for the emergency department. They indicated understanding and the patient was discharged in stable condition. Critical Care Critical Care Time Critical Care Time: No
[2025-05-31] MEDS: TET/DIPHTH/PERT-ADULT 0.5ML SYRINGE 0.5 ML IM (06:44)
[2025-05-31 06:56] VITALS: BP 133/52; PULSE 52; RESP 16; TEMP 36.5; O2SAT 95
== END 2025-05-31 07:01 | disposition home or self-care (01) ==
PROVIDERS: Emergency Provider Emergency Medicine
DX: S00.01XA Abrasion of scalp, initial encounter (principal); W19.XXXA Unspecified fall, initial encounter; I10 Essential (primary) hypertension; E11.49 Type 2 diabetes mellitus with other diabetic neurological complication; E87.6 Hypokalemia
CPT/HCPCS: 70450; 72125; 90471; 90715; 99284; 99285

== ENCOUNTER 2025-06-23 11:20 | Emergency (ER) | payer MEDICARE, SELFPAY ==
--- OUTSIDE RECORDS SUMMARY | 2025-05-05 16:00 | XMS_ITS | Encounter Summary ---
Author Organization [facility] Address [address] [place] [address] Care Team Providers Care Kidney Puller Name Role Phone Rosemarie Riley APRN Primary Care Provider [phone] Reason for Visit * Reason Comments Needs dialysis Encounter Details Date Type Department Care Team (Late st Contact Info) Description 05/05/2025 4:00 PM EDT - 05/05/2025 6:01 PM EDT Emergency [facility] [address] [place] [address] Neno Elizabeth MD [address] [place] [address] ESRD (end stage renal disease) on dialysis ([facility]) (Primary Dx); Elevated TSH; Hyperphosphatemia Discharge Disposition: Home or Self Care Social History Tobacco Use Types Packs/Day Years Used Date Smoking Tobacco: Every Day Alcohol Use Standard Drinks/Week Comments No 0 (1 standard drink = 0.6 oz pur e alcohol) Humiliation, Afraid, Rape, and Kick questionnair e Answer Date Recorded Within the last year, have y ou been afraid of your partner or ex-partner? No 06/25/2024 Within the last year, have y ou been humiliated or emotionally abused in other ways by your partner or ex-partner? No Within the last year, have y ou been kicked, hit, slapped, or otherwise physically hurt by your partner or ex-partner? No 06/25/2024 Within the last year, have y ou been raped or forced to have any kind of sexual activity by your partner or ex-partner? No 06/25/2024 Social Connection and Isolation Panel Answer Date Recorded Frequency of Communication with Friends and Fami ly Not on file 06/25/2024 Frequency of Social Gatherin gs with Friends and Family Not on file 06/25/2024 Attends Tenriism Services Not on file 06/25 Active Member of Clubs or Organizations Not on f ile 06/25/2024 Attends Club or Organization Meetings Not on boris e 06/25/2024 Are you , , di vorced, , never , or living with a partner? Living with partner 06/25/2024 Hunger Vital Sign Answer Date Recorded Within the past 12 months, y ou worried that your food would run out before you got the money to buy more. Never true 06/25/20 24 Within the past 12 months, t he food you bought just didn't last and you didn't have money to get more. Never true 06/25/2024 PRAPARE - Transportation Answer Date Re corded In the past 12 months, has l ack of transportation kept you from medical appointments or from getting medications? No 03/2024 In the past 12 months, has l ack of transportation kept you from meetings, work, or from getting things needed for daily living? No 06/25/2024 Housing Stability Vital Sign Answer Zackery e Recorded In the last 12 months, was t here a time when you were not able to pay the mortgage or rent on time? No 06/25/2024 In the last 12 months, how many places have you lived? 1 06/25/2024 In the last 12 months, was t here a time when you did not have a steady place to sleep or slept in a penitentiary (including now)? No 06/25/2024 CAGE ASSESSMENT Answer Date Recorded Cage unable to access Not on file 06/21/2024 Cage max number of drinks Not on file 2023 Cage Beverages a week Not on file 06/21/2024 Have you ever felt you should CUT down on your d rinking? 0 06/21/2024 Have you been ANNOYED by people criticizing your drinking? 0 06/21/2024 Have you felt GUILTY about your drinking? 0 06/21/2024 Have you had a drink first t jacqueline in the morning ([employer]) to steady your nerves or to get rid of a hangover? 0 06/21/2024 CAGE Questionnaire Score 0 024 Utilities Answer Date Recorded In the past 12 months has th e electric, gas, oil, or water company threatened to shut off services in your home? No 06/25/2024 Comments Unknown Sex and Gender Information Value Date Recorded Sex Assigned at Female 07/03/2024 2:13 PM EDT Legal Sex Female 7:39 PM EDT Gender Identity Not on file Sexual Orientation Not on file documented as of this encounter Last Filed Vital Signs Vital Sign Reading Time Taken Comments Blood Pressure 194/47 05/05/2025 5:50 PM EDT Pulse 58 05/05/2025 5:50 PM EDT Temperature 36.4 C (97.6 F) 05/05/2025 5:50 PM EDT Respiratory Rate 20 05/05/2025 5:50 PM EDT Oxygen Saturation 94% 05/05/2025 5:50 PM EDT Inhaled Oxygen Concentration - - Weight 60.8 kg (134 lb) 05/05/2025 2:40 PM EDT Height 170.2 cm (5' 7 ) 05/05/2025 2:40 PM EDT Body Mass Index 20.99 05/05/2025 2:40 PM EDT documented in this encounter Functional Status * Calculated C-SSRS Risk Score (Lifetime/Recent) Answer Date of Assessment Author No Risk Indicated 05/05/2025 4:23 PM EDT Arielle Morales RN * Question Answer Date of Assessment Author 1. Wish to be (Past 1 Month) No 05/05/2025 4:23 PM EDT Janna Castro, RN 2. Non-Specific Active Suicidal Thoughts (Past 1 Month) No 05/05/2025 4:23 PM EDT Janna Castro, RN 6. Suicidal Behavior (Lifetime) No 05/05/2025 4:23 PM EDT Janna Castro, CHAO documented as of this encounter Discharge Instructions * Discharge Instructions* Devi James PA - 05/05/2025 5:50 PM EDT You were seen and evaluated in the emergency department today to be established with a dialysis clinic. Your labs do not indicate any need for emergent dialysis. You may return to the emergency department tomorrow for dialysis, with a plan for the cable worker helper to get you established with a dialysis clinic close to home. Please return in the emergency department for worsening of your symptoms, shortness of breath, chest pain, or any other concerns that you have for your health. documented in this encounter Medications at Time of Discharge atorvastatin (Lipitor) 80 MG tablet Take 1 tablet by mouth nightly. ezetimibe (Zetia) 10 MG tablet Take 1 tablet (10 mg) by mouth 1 (one) time each day. 2 tablet 07/03/2024 pantoprazole (ProtoNix) 20 MG EC tablet Take 1 tablet by mouth daily before breakfast. Do not crush, chew, or split. albuterol 108 (90 Base) MCG/ACT inhaler Inhale 2 puffs every 6 (six) hours if needed for shortness of breath. 5 carvedilol (Coreg) 25 MG tablet Take 1 tablet (25 mg) by mouth 2 (two) times a day with meals. 2 tablet 07/03/2024 5 cloNIDine (Catapres) 0.1 MG tablet Take 1 tablet (0.1 mg) by mouth 2 (two) times a day if needed. If systolic blood pressure is greater than 180 5 clopidogrel (Plavix) 75 MG tablet Take 1 tablet by mouth daily. 5 doxazosin (Cardura) 2 MG tablet Take 1 tablet (2 mg) by mouth every night. 2 tablet 07/03/2024 5 ergocalciferol (Vitamin D-2) 1.25 MG (67585 UT) capsule Take 1 capsule (50,000 Units) by mouth every 14 (fourteen) days. hydrALAZINE (Apresoline) 100 MG tablet Take 1 tablet (100 mg) by mouth 3 (three) times a day. 90 tablet 06/30/2024 5 isosorbide mononitrate ER (Imdur) 60 MG 24 hr tablet Take 2 tablets (120 mg) by mouth 1 (one) time each day in the morning for 2 days. Do not crush or chew. 4 tablet 07/03/2024 5 lactulose (Chronulac) 10 GM/15ML solution Take 15 mL (10 g) by mouth 1 (one) time each day if needed (constipation). 5 levothyroxine (Synthroid, Levoxyl) 75 MCG tablet Take 1 tablet (75 mcg) by mouth 1 (one) time each day before breakfast. 2 tablet 07/03/2024 5 NIFEdipine XL (Procardia XL) 90 MG 24 hr tablet Take 1 tablet (90 mg) by mouth 1 (one) time each day. Do not crush, chew, or split. 30 tablet 07/01/2024 5 oxyCODONE-acetami nophen (Percocet) 10-325 MG tablet Take 1 tablet by mouth every 6 hours as needed for severe pain. 5 topiramate (Topamax) 25 MG tablet Take 1 tablet (25 mg) by mouth every night. 5 valsartan (Diovan) 80 MG tablet Take 1 tablet (80 mg) by mouth 2 (two) times a day for 2 days. 4 tablet 07/03/2024 5 documented as of this encounter Miscellaneous Notes * ED Provider Notes - Devi James PA - 05/05/2025 2:35 PM EDT Images from the original note were not included. - HPI Chief Complaint Patient presents with Needs dialysis PIT Note: Mar Waldron is a 54 y.o. female with PMH of HTN, DM, hypothyroidism, renal cancer and arthritis who presents to the ED with needing dialysis. Pt reports she had hemodialysis three days ago in [place] and was told by the MD there that she should be evaluated in the ED for another treatment today. Son reports pt has had weight loss and reduced appetite over the past year. She reports she has received hemodialysis MWF for years. She denies new symptoms at this time. Agree with above PIT note. PMH of ESRD on dialysis MWF, renal mass, HTN, HLD, anemia, low platelets, and hypothyroidism. Son at bedside reports pt received dialysis in [place] on Tuesday, 05/03 and was sent here per [facility] recommendations to be evaluated at before initiating dialysis in [facility]. Son reports he does not believe she needs emergent dialysis, he just wants to ensure that she will be able to get dialysis tomorrow; reports she has been on dialysis MWF for 3-4 years in [place]. Reports he moved his mother to [place] over the weekend to be closer to him. Pt reports she feels great today, and denies any symptoms. Denies chest pain, SOB, nausea, vomiting, diarrhea, urinary complaints and any other complaints at this time. History provided by: Patient charge rn used: No Patient History Past Medical History[1] Surgical History[2] Family History[3] Social History[4] Allergies: Allergies[5] Physical Exam ED Triage Vitals [05/05/25 1440] Temp Heart Rate Resp BP 36.3 ??C (97.3 ??F) 55 20 (!) 149/59 SpO2 Temp Source Heart Rate Source Patient Position 96 % Oral -- -- BP Location FiO2 (%) -- -- Physical Exam Vitals and nursing note reviewed. Constitutional: General: She is not in acute distress. Appearance: Normal appearance. She is not ill-appearing or diaphoretic. HENT: Head: Normocephalic. Mouth/Throat: Mouth: Mucous membranes are moist. Pharynx: Oropharynx is clear. Eyes: Extraocular Movements: Extraocular movements intact. Conjunctiva/sclera: Conjunctivae normal. Cardiovascular: Rate and Rhythm: Normal rate. Pulmonary: Effort: Pulmonary effort is normal. No respiratory distress. Breath sounds: Normal breath sounds and air entry. No wheezing. Abdominal: General: There is no distension. Musculoskeletal: General: No deformity. Normal range of motion. Cervical back: Normal range of motion. Right lower leg: No edema. Left lower leg: No edema. Skin: General: Skin is warm. Capillary Refill: Capillary refill takes less than 2 seconds. Coloration: Skin is not jaundiced or pale. Neurological: Mental Status: She is alert and oriented to person, place, and time. Mental status is at baseline. Psychiatric: Behavior: Behavior normal. Wray Coma Scale Score: 15 ED Course & MDM - Assessment: 54 y.o. female presents to ED with complaint of establishment for dialysis. It should be noted thatthe chronic conditions includes ESRD on dialysis MWF, renal mass, HTN, HLD, anemia, low platelets, hypothyroidism, which currently is not at goal therapy. This complicates the clinical picture because it Comorbidities: may be exacerbating symptoms and increases the risk for morbidity Differential Diagnosis includes but is not limtied to need for established care, electrolyte abnormality, fluid overload, thyroid abnormality, among others. No evidence of fluid overload on exam. Pt denies any physical complaints on arrival. In order to fully explore the differential diagnosis the following treatments and tests were ordered: ED Medication Administration from 05/05/2025 1435 to 05/06/2025 0252 Date/Time Order Dose Route Action 05/05/2025 175 EDT amLODIPine (Norvasc) tablet 10 mg 10 mg Oral Given All Other Orders Ordered Status Ordering Provider 05/05/25 1544 CMP STAT Final result FERASMITA MEYERS Simon 05/05/25 1544 CBC w/diff STAT Final result FERASMITA MEYERS Simon 05/05/25 1544 Magnesium STAT Final result ASMITA FELIZ Simon 05/05/25 1544 Phosphorus STAT Final result ASMITA FELIZ Simon 05/05/25 1544 Thyroid Stimulating Hormone, Plasma STAT Final result ASMITA FELIZ Simon 05/05/25 1544 Free T4, Plasma STAT Final result ASMITA FELIZ Simon 05/05/25 1544 Blood gas panel, venous STAT Final result ASMITA FELIZ Simon 05/05/25 1544 Type and screen Start now Final result ASMITA FELIZ Simon 05/05/25 1544 EKG now - STAT (adult) Once Final result KEVIN ASMITA Simon ED Course as of 05/06/25 0252 Sun May 05, 2025 174 Spoke with Lis Ramirez with renal who spoke with her attending, Dr. Zuñiga, who reports pt is appropriate for discharge at this time, does not require emergent dialysis. Reports that patient may return to the emergency department tomorrow and consult the ESRD team for dialysis; reports they will put pt on their expect board. Reports that patient will then be connected with the ESRD outreach and education social worker, Vanessa Cai, to establish care for dialysis closer to home. [BW] 1754 At time of discharge patient is hypertensive; reports that patient is due for her amlodipine at this time therefore given home dose of amlodipine prior to discharge. [BW] ED Course User Index [BW] Devi James PA Clinical Impressions as of 05/06/25 0252 ESRD (end stage renal disease) on dialysis ([facility]) Elevated TSH Hyperphosphatemia CBC was stable H&H, No evidence of leukocytosis or any other acute abnormalities. CMP with creatinine of 4.26, BUN 63 with history of ESRD, and chronic elevation of alk-phos, no other acute electrolyte abnormalities. Mild hypomagnesemia of 1.6. Elevated phosphorus at 7.0. Elevated TSH at 12.22.Normal T4. VBG with mild acidosis pH 7.30. EKG with sinus yanelis; no acute ST changes. At time of dc pt remained hypertensive however stable and afebrile. Given home dose of amlodipine prior to dc. Instructed pt to return to the ED tomorrow for dialysis as suggested by Lis Ramirez and Dr. Zuñiga with renal; agree there is no indication for emergent dialysis tonight. Lis with renal reported that they will help facilitate getting pt set up with dialysis clinic close to home tomorrow. Pt and family ultimately expressed understanding of and agreement to plan of care. Pt dc in stable condition. Ultimately, this patient was Was discharged Home (Discharge) The primary encounter diagnosis was ESRD (end stage renal disease) on dialysis ([facility]). Diagnoses of Elevated TSH and Hyperphosphatemia were also pertinent to this visit. . Patient was counseled on the diagnoses. Discharge medications if any are listed below. Listed medications are thought be either curative for listed diagnoses or will help control ongoing symptoms. Patient is requested to follow up with Patient's Primary Care Provider in order to obtain routine follow-up and ED follow up. Instructions on follow up as well as precautions to return to the ER provided verbally bythe EM provider, as well as written in patients discharge education packet. ED Prescriptions None Discharge Instructions You were seen and evaluated in the emergency department today to be established with a dialysis clinic. Your labs do not indicate any need for emergent dialysis. You may return to the emergency department tomorrow for dialysis, with a plan for the cable worker helper to get you established with a dialysis clinic close to home. Please return in the emergency department for worsening of your symptoms, shortness of breath, chest pain, or any other concerns that you have for your health. Disposition Discharge Pt discharged from ED. Pt vitally stable and in no obvious acute distress at the time of discharge. AVS (Icelandic Snapshot) - Printed 05/05/2025 Follow-Ups: Follow up with [facility] (Emergency Medicine); If symptoms worsen, As needed - 05/06/2025, 2:52 AM Scribe Attestation: This note was dictated to me, Vernon Combs, acting as a scribe for Dr. Asmita Feliz M.D. Attending Attestation: This documentation was recorded by Vernon Combs acting as a scribe in my presence at the time of the encounter and accurately reflects the service I personally performed and thedecisions made by me. [1] Past Medical History: Diagnosis Date Arthritis Diabetes mellitus (CMS/HCC) HTN (hypertension) Hypothyroidism Renal cancer (CMS/HCC) [2] Past Surgical History: Procedure Laterality Date APPENDECTOMY SECTION, LOW TRANSVERSE CHOLECYSTECTOMY HYSTERECTOMY TONSILLECTOMY [3] Family History Problem Relation Name Age of Onset Diabetes Mother Diabetes Father Hypertension Mother Hypertension Father Other cancer Mother Other cancer Father Hyperlipidemia Mother Hyperlipidemia Father [4] Tobacco Use Smoking status: Every Day Substance Use Topics Alcohol use: No [5] Allergies Allergen Reactions Basaglar Kwikpen [Insulin Glargine] Other - please document in the comment field Lisinopril Cough and Unknown - Patient states they do not know rxn details Cough Devi James PA 05/06/25 0302 Cosigned by Neno Elizabeth MD at 05/06/2025 8:45 AM EDT Associated attestation - Neno Elizabeth MD - 05/06/2025 8:45 AM EDT I attest to being involved in more than half the total time in patient care. * ED Triage Notes - Haven Argueta RN - 05/05/2025 2:35 PM EDT Reports having hemodialysis on Tuesday in [place]. Family brought her home yesterday. in [place] told patient to be evaluated in ED on Tuesday for another treatment. documented in this encounter Plan of Treatment Upcoming Encounters Date Type Department Care Team (Late st Contact Info) Description 07/05/2025 1:00 PM EDT [facility] [address] [place] [address] Sobia Goldberg PA [address] [place] [address] 07/05/2025 2:00 PM EDT Appointment [facility] Pulmonary Function Testing [address] [place] [address] 08/20/2025 12:00 PM EST Office Visit [facility] [place] [address] [place] [address] Kaiden Harvey MD [address] [place] [address] documented as of this encounter Procedures Procedure Name Priority Date/Time Associated Diagnosis Comments CBC WITH AUTO DIFFERENTIAL STAT 05/05/2025 4:24 PM EDT TYPE AND SCREEN STAT 05/05/2025 4:24 PM EDT TSH STAT 05/05/2025 4:24 PM EDT FREE T4, PLASMA STAT 05/05/2025 4:24 PM EDT PHOSPHORUS, PLASMA STAT 05/05/2025 4: 24 PM EDT MAGNESIUM, PLASMA STAT 05/05/2025 4:2 4 PM EDT BLOOD GAS PANEL, VENOUS STAT 05/05/2025 4:24 PM EDT COMPREHENSIVE METABOLIC PANEL, PLASMA STAT 05/05/2025 4:24 PM EDT ECG ADULT STAT 05/05/2025 3:49 PM EDT documented in this encounter Results * Type and screen (05/05/2025 4:24 PM EDT) ABO/Rh O Positive 05/05/2025 3:43 PM EDT BLOOD BANK Antibody Screen Negative 05/05/2025 3:43 PM EDT BLOOD BANK Specimen Expiration 05/08/2025 23:59 05/05/2025 3:43 PM EDT BLOOD BANK Blood Venous blood specimen / Unknown Venipuncture / Unknown 05/05/2025 4:24 PM EDT 05/05/2025 4:30 PM EDT us Asmita Feliz MD LAB BLOOD BANK TEST ORDERABLES Final Result BLOOD BANK [address] [place] [address], * (ABNORMAL) Blood gas panel, venous (05/05/2025 4:24 PM EDT) pH, Venous 7.30(L) 7.32 - 7.43 LAB HEMATOLOGY METHOD 05/05/2025 4:31 PM EDT [facility] pCO2, Venous 50 37 - 52 mmHg LAB HEMATOLOGY METHOD 05/05/2025 4:31 PM EDT [facility] pO2, Venous 35 25 - 40 mmHg LAB HEMATOLOGY METHOD 05/05/2025 4:31 PM EDT [facility] SO2, Measured, Venous 56(L) 65 - 80 % LAB HEMATOLOGY METHOD 05/05/2025 4:31 PM EDT [facility] Base Excess, Venous -2.2(L) -2.0 - 3.0 mmol/L LAB HEMATOLOGY METHOD 05/05/2025 4:31 PM EDT [facility] Bicarbonate, Calculated, Venous 25 22 - 26 mmol/L LAB HEMATOLOGY METHOD 05/05/2025 4:31 PM EDT [facility] Hematocrit, Whole Blood 31.2(L) 34.0 - 45.0 % LAB HEMATOLOGY METHOD 05/05/2025 4:31 PM EDT [facility] Sodium, Whole Blood 137 136 - 145 mmol/L LAB HEMATOLOGY METHOD 05/05/2025 4:31 PM EDT [facility] Potassium, Whole Blood 3.5(L) 3.6 - 4.9 mmol/L LAB HEMATOLOGY METHOD 05/05/2025 4:31 PM EDT [facility] Chloride, Whole Blood 97 97 - 107 mmol/L LAB HEMATOLOGY METHOD 05/05/2025 4:31 PM EDT [facility] Glucose, Whole Blood 146(H) 74 - 99 mg/dL LAB HEMATOLOGY METHOD 05/05/2025 4:31 PM EDT [facility] Lactate, Venous, Whole Blood 0.7 0.5 - 2.2 mmol/L LAB HEMATOLOGY METHOD 05/05/2025 4:31 PM EDT [facility] Ionized Calcium, Whole Blood 3.9(L) 4.6 - 5.1 mg/dL LAB HEMATOLOGY METHOD 05/05/2025 4:31 PM EDT [facility] Blood Venous blood specimen / Unknown Venipuncture / Unknown 05/05/2025 4:24 PM EDT 05/05/2025 4:29 PM EDT us Asmita Feliz MD LAB BLOOD ORDERABLES Final Res ult [facility] [address] [place] [address] * Free T4, Plasma (05/05/2025 4:24 PM EDT) Free T4, Plasma 0.8 0.8 - 1.7 ng/dL 05/05/2025 4:57 PM EDT [facility] Blood Venous blood specimen / Unknown Venipuncture / Unknown 05/05/2025 4:24 PM EDT 05/05/2025 4:29 PM EDT Narrative [facility] - 05/05/2025 4:57 PM EDT Free T4 Trimester Specific Ranges 1st Trimester 0.9 - 1.50 ng/dL 2nd Trimester 0.7 - 1.40 ng/dL 3rd Trimester 0.7 - 1.24 ng/dL Asmita Feliz MD LAB BLOOD ORDERABLES Final Res ult Performing Organization Address [facility] Co de Phone Number [facility] [address] [place] [address] * (ABNORMAL) Thyroid Stimulating Hormone, Plasma (05/05/2025 4:24 PM EDT) Thyroid Stimulating Hormone, Plasma 12.22(H) 0.40 - 4.20 uIU/mL 05/05/2025 4:57 PM EDT [facility] Blood Venous blood specimen / Unknown Venipuncture / Unknown 05/05/2025 4:24 PM EDT 05/05/2025 4:29 PM EDT Narrative [facility] - 05/05/2025 4:57 PM EDT Trimester Specific Ranges TSH ( IU/mL) 1st Trimester 0.1 - 3.0 2nd Trimester 0.19 - 4.06 3rd Trimester 0.3 - 3.7 Asmita Feliz MD LAB BLOOD ORDERABLES Final Res ult Performing Organization Address [facility] Co de Phone Number [facility] [address] [place] [address] * (ABNORMAL) Phosphorus (05/05/2025 4:24 PM EDT) Phosphorus, Plasma 7.0(H) 2.5 - 4.5 mg/dL 05/05/2025 4:57 PM EDT [facility] Blood Venous blood specimen / Unknown Venipuncture / Unknown 05/05/2025 4:24 PM EDT 05/05/2025 4:29 PM EDT Asmita Feliz MD LAB BLOOD ORDERABLES Final Res ult Performing Organization Address City/[facility]/ZIP Co de Phone Number [facility] [address] [place] [address] * (ABNORMAL) Magnesium (05/05/2025 4:24 PM EDT) Magnesium, Plasma 1.6(L) 1.9 - 2.4 mg/dL 05/05/2025 4:57 PM EDT [facility] Blood Venous blood specimen / Unknown Venipuncture / Unknown 05/05/2025 4:24 PM EDT 05/05/2025 4:29 PM EDT us Asmita Feliz MD LAB BLOOD ORDERABLES Final Res ult [facility] [address] [place] [address] * (ABNORMAL) CBC w/diff (05/05/2025 4:24 PM EDT) Pathologist [facility] WBC Count 5.48 3.70 - 10.30 10*3/uL LAB HEMATOLOGY METHOD 05/05/2025 6:00 PM EDT [facility] RBC Count 3.44(L) 3.90 - 5.20 10*6/uL LAB HEMATOLOGY METHOD 05/05/2025 6:00 PM EDT [facility] HGB 10.0(L) 11.2 - 15.7 g/dL LAB HEMATOLOGY METHOD 05/05/2025 6:00 PM EDT [facility] HCT 35.1 34.0 - 45.0 % LAB HEMATOLOGY METHOD 05/05/2025 6:00 PM EDT [facility] Platelet Count LAB HEMATOLOGY METHOD 05/05/2025 6:00 PM EDT [facility] Comment:Interfering substanc e present, platelets appear decreased. Recollect recommended. MCV 102(H) 79 - 98 fL LAB HEMATOLOGY METHOD 05/05/2025 6:00 PM EDT [facility] MCH 29.1 26.0 - 32.0 pg LAB HEMATOLOGY METHOD 05/05/2025 6:00 PM EDT [facility] MCHC 28.5(L) 30.7 - 35.5 g/dL LAB HEMATOLOGY METHOD 05/05/2025 6:00 PM EDT [facility] RDW 15.4(H) 11.5 - 14.5 % LAB HEMATOLOGY METHOD 05/05/2025 6:00 PM EDT [facility] [facility] LAB HEMATOLOGY METHOD 05/05/2025 6:00 PM EDT [facility] Comment:Not Measured nRBC 0.0 <=0.0 per 100 WBCs LAB HEMATOLOGY METHOD 05/05/2025 6:00 PM EDT [facility] Differential Type Automated LAB HEMATOLOGY METHOD 05/05/2025 6:00 PM EDT [facility] Neutrophils % 72 % LAB HEMATOLOGY METHOD 05/05/2025 6:00 PM EDT [facility] Lymphocytes % 16 % LAB HEMATOLOGY METHOD 05/05/2025 6:00 PM EDT [facility] Monocytes % 8 % LAB HEMATOLOGY METHOD 05/05/2025 6:00 PM EDT [facility] Eosinophils % 2 % LAB HEMATOLOGY METHOD 05/05/2025 6:00 PM EDT [facility] Basophils % 1 % LAB HEMATOLOGY METHOD 05/05/2025 6:00 PM EDT [facility] Immature Granulocytes % 1 % LAB HEMATOLOGY METHOD 05/05/2025 6:00 PM EDT [facility] Neutrophils Absolute 3.99 1.60 - 6.10 10*3/uL LAB HEMATOLOGY METHOD 05/05/2025 6:00 PM EDT [facility] Lymphocytes Absolute 0.86(L) 1.20 - 3.90 10*3/uL LAB HEMATOLOGY METHOD 05/05/2025 6:00 PM EDT [facility] Monocytes Absolute 0.45 0.30 - 0.90 10*3/uL LAB HEMATOLOGY METHOD 05/05/2025 6:00 PM EDT [facility] Eosinophils Absolute 0.08 0.00 - 0.50 10*3/uL LAB HEMATOLOGY METHOD 05/05/2025 6:00 PM EDT [facility] Basophils Absolute 0.07 0.00 - 0.10 10*3/uL LAB HEMATOLOGY METHOD 05/05/2025 6:00 PM EDT [facility] Immature Granulocytes Absolute 0.03 0.00 - 0.06 10*3/uL LAB HEMATOLOGY METHOD 05/05/2025 6:00 PM EDT [facility] Blood Venous blood specimen / Unknown Venipuncture / Unknown 05/05/2025 4:24 PM EDT 05/05/2025 4:29 PM EDT Narrative [facility] - 05/05/2025 6:00 PM EDT Therapeutic decision making should be based on absolute values, rather than percentages. us Asmita Feliz MD LAB BLOOD ORDERABLES Final Res ult [facility] [address] [place] [address] * (ABNORMAL) CMP (05/05/2025 4:24 PM EDT) Glucose, Plasma 150(H) 74 - 99 mg/dL 05/05/2025 4:57 PM EDT [facility] BUN, Plasma 63(H) 7 - 21 mg/dL 05/05/2025 4:57 PM EDT [facility] Creatinine, Plasma 4.23(H) 0.60 - 1.10 mg/dL 05/05/2025 4:57 PM EDT [facility] BUN/Creatinine Ratio 15 05/05/2025 4:57 PM EDT [facility] Sodium, Plasma 137 136 - 145 mmol/L 05/05/2025 4:57 PM EDT [facility] Potassium, Plasma 3.6 3.6 - 4.9 mmol/L 05/05/2025 4:57 PM EDT [facility] Chloride, Plasma 96(L) 97 - 107 mmol/L 05/05/2025 4:57 PM EDT [facility] CO2, Plasma 22 22 - 29 mmol/L 05/05/2025 4:57 PM EDT [facility] Anion Gap 19(H) 6 - 16 mmol/L 05/05/2025 4:57 PM EDT [facility] Total Calcium, Plasma 7.5(L) 8.9 - 10.2 mg/dL 05/05/2025 4:57 PM EDT [facility] Total Protein 6.6 6.3 - 7.9 g/dL 05/05/2025 4:57 PM EDT [facility] Albumin, Plasma 3.7 3.5 - 5.2 g/dL 05/05/2025 4:57 PM EDT [facility] AST, Plasma 20 10 - 35 U/L 05/05/2025 4:57 PM EDT [facility] ALT, Plasma <5(L) 10 - 35 U/L 05/05/2025 4:57 PM EDT [facility] Alkaline Phosphatase, Plasma 159(H) 35 - 104 U/L 05/05/2025 4:57 PM EDT [facility] Total Bilirubin, Plasma 0.5 0.2 - 1.1 mg/dL 05/05/2025 4:57 PM EDT [facility] eGFRcr 11.8 mL/min/1.7 3m*2 05/05/2025 4:57 PM EDT [facility] Comment:Reported eGFRcr in m L/min/1.73m2 is based the CKD-EPI 2020 equation that does not use a race coefficient. Blood Venous blood specimen / Unknown Venipuncture / Unknown 05/05/2025 4:24 PM EDT 05/05/2025 4:29 PM EDT us Asmita Feliz MD LAB BLOOD ORDERABLES Final Res ult [facility] [address] [place] [address] * EKG now - STAT (adult) (05/05/2025 3:49 PM EDT) EKG DIAGNOSIS CLASS Abnormal MUSE ECG Ventricular Rate 53 BPM MUSE ECG Atrial Rate [address] Interval 142 ms MUSE ECG QRSD Interval 110 ms MUSE ECG QT Interval 488 ms MUSE ECG QTC Interval 457 ms MUSE ECG P [place] 55 degrees MUSE ECG R [place] 105 degrees MUSE ECG T Wave [place] 171 degrees MUSE ECG Diagnosis Sinus bradycardia MUSE ECG Diagnosis Rightward axis MUSE ECG Diagnosis Cannot rule out Inferior infarct , age undetermined MUSE ECG Diagnosis Cannot rule out Anterior infarct , age undetermined MUSE ECG Diagnosis Nonspecific T wave abnormality MUSE ECG Diagnosis Abnormal ECG MUSE ECG Diagnosis MUSE ECG Diagnosis Confirmed by Mariano Styles ([id number]) on 05/05/2025 6:58:31 PM MUSE ECG 05/05/2025 3:49 PM EDT 05/05/2025 6:58 PM EDT us Asmita L Vincent MD ECG ORDERABLES Final Result MUSE ECG documented in this encounter Visit Diagnoses Diagnosis ESRD (end stage renal disease) on dialysis ([facility])- Primary End stage renal disease Elevated TSH Other abnormal blood chemistry Hyperphosphatemia Disorders of phosphorus metabolism documented in this encounter Administered Medications Inactive Administered Medications - up to 3 most recent administrations Medication Order MAR Action Action Date Dose Rate Site amLODIPine (Norvasc) tablet 10 mg 10 mg, Oral, Daily, First dose on 05/05/25 at 1755, Until Discontinued, Routine Given 05/05/2025 5:58 PM EDT 10 mg documented in this encounter Active and Recently Administered Medications Times are shown in EDT. Scheduled Medication Order 05/03/2025 05/04/2025 05/05/2025 amLODIPine (Norvasc) tablet 10 mg 10 mg, Oral, Daily, First dose on 05/05/25 at 1755, Until Discontinued, Routine 1758 (Given - Provid er: Arielle Catsro RN) documented in this encounter Additional Health Concerns Assessment Noted Time A Body Mass Index follow-up plan has been documented for the patient 06/30/2024 1:58 PM EDT documented as of this encounter Care Teams Kidney Puller Relationship Specialty Start Date End Date Rosemarie Riley APRN [address] [place] [address] PCP - General 04/02/25 documented as of this encounter
--- OUTSIDE RECORDS SUMMARY | 2025-05-06 13:27 | XMS_ITS | Encounter Summary ---
Author Organization Healthcare Address [address] [place] [address] Care Team Providers Care Plasterer Foreman Name Role Phone Rosemarie Riley APRN Primary Care Provider [phone] Reason for Referral * Consultation (Routine) - Authorized Specialty Diagnoses / Procedures Referred By Contact Referred To Contact Urology / Hematology and Oncology Diagnoses Renal mass Tiny Summers MD [address] [place] [address] Phone: tel:[phone] fax:[phone] [facility] [address] [place] [address] Phone: tel: fax: Referral ID Status Reason Start Date Expiration Date Visits Requested Visits Authorized [id number] Authorized Specialty Services Required 05/06/2025 11/05/2026 1 1 Reason for Visit * Reason Comments Dialysis Encounter Details Date Type Department Care Team ([facility] st Contact Info) Description 05/06/2025 1:27 PM EDT - 05/06/2025 8:09 PM EDT Emergency [facility] Emergency Department [address] [place] [address] Sena Navarro MD [address] [place] [address] Renal mass (Primary Dx); ESRD (end stage renal disease) ([facility]/HCC) Discharge Disposition: Home or Self Care Social [...] and Family Not on file 06/25/2024 Attends Sabianism Services Not on file 06/25 Active Member [...] place to sleep or slept in a residential (including now)? No 06/25/2024 CAGE ASSESSMENT Answer [...] drink first t jacqueline in the morning (EYE-PRODUCT SAFETY SPECIALIST) to steady your nerves or to get rid of a hangover? 0 06/21/2024 CAGE Questionnaire Score 0 024 Utilities Answer Date Recorded In the past 12 months has th [employer]), gas, oil, or water [employer] threatened to shut off services in your [...] Haider RN 6. Suicidal Behavior (Lifetime) No 5 2:38 PM EDT Elif Haider RN documented [...] 07/03/2024 5 ergocalciferol (Vitamin D-2) 1.25 MG (78681 UT) capsule Take 1 capsule (50,000 Units) by mouth every 14 (fourteen) days. 5 hydrALAZINE (Apresoline) 100 MG tablet Take 1 [...] for Consult: ESRD management HPI: Mrs Mar Waldron is a 54 y.o. female with a history of ESRD on iHD, HTN, COPD, HFpEF who presents to the ED for laboratory check and possible iHD. Her son Patricio was present at bedside to 8 and additional history taking. Per patient and her son, they report that she had been living in [place] prior to this and receiving intermittent HD there. Son notes that patient had progressively become weaker and was not able to take care of herself well at home, additionally who she was staying with [facility] did not help in taking care of patient. He notes that he recently brought her to [place] to live and stay with him. States that she has been on HD for some time, she had previously visited from [place] late last year and was dialyzing at [facility]. Patient and son note that since her returned to [place] she has had a good appetite, denies any nausea vomiting or abdominal pain today. Denies any shortness of air chest pain or cough today. Son notes that patient has had some weakness which has been steadily improving at home. Patient's son notes that recently received a call from [facility] he will be reestablishing outpatient dialysis with [...] Resource Strain: High Risk (06/17/2024) Received from [employer] ([place], [place], [place], [place]) Financial Resource Strain How hard [...] No Physical Activity: Inactive (06/17/2024) Received from [employer] ([place], [place], [place], [place]) Physical Activity Number of minutes of exercise per week : 0 Stress: No Stress Concern Present (04/15/2024) Received from [employer] ([place], [place], [place], [place]) Stress Feeling stress past 2 weeks: 1 Social Connections: Unknown (06/25/2024) Social Connection and Isolation Panel Frequency of Communication with Friends and Family: Not on file Frequency of Social Gatherings with Friends and Family: Not on file Attends Sabianism Services: Not on file Active Member of Clubs or Organizations: Not on file Attends Club or Organization Meetings: Not on file Marital Status: Living with partner Intimate Partner Violence: Not At Risk (07/02/2024) Received from [facility] Abuse Screen Feels Unsafe at Home or [...] established yet, likely MWF - Dialysis Unit: [facility] - Outpatient Executive Director Of Marketing: WHITNEY - Residual renal functions: - EDW: [...] Has appointment to establish outpatient iHD with [facility] Tuesday - Would recommend outpatient referral to [...] Mother Hyperlipidemia Father [5] Allergies Allergen Reactions Basaglar Kwikpen [Insulin [...] Rfl: 0 ergocalciferol (Vitamin D-2) 1.25 MG (95961 UT) capsule, Take 1 capsule (50,000 Units) [...] as documented. * ED Provider Notes - Ananda Almonte MD - 05/06/2025 1:06 PM EDT - HPI Chief Complaint Patient presents with ??? Dialysis PIT Note Mar Waldron is a 54 y.o. female who presents to ED after Kaylah told her she needs to complete dialysis in hospital before able to complete in clinic. Reports hx ESRD and requires MWF dialysis.Says she recently moved from [place] due to dissatisfaction with care providers. States [...] and Affect: Mood normal. Behavior: Behavior normal. [place] Coma Scale Score: 15 ED Course & [...] tests were ordered: ED Course as of 05/07/251706May 07, [id number] Laboratory workup personally interpreted by [...] Renal mass ESRD (end stage renal disease) ([facility]) Ultimately, this patient was Was discharged Home (Discharge) The primary encounter diagnosis was Renal mass. A diagnosis of ESRD (end stage renal disease) ([facility]) was also pertinent to this visit. . [...] details Cough Ananda Almonte MD Resident 05/07/25 [id number] Cosigned by Sena Navarro MD at 05/07/2025 [...] Info) Description 07/05/2025 1:00 PM EDT Consult [facility] Urology [address] [place] [address] Sobia Goldberg PA [address] [place] [address] 07/05/2025 2:00 PM EDT Appointment [facility] H Pulmonary Function Testing [address] [place] [address] 08/20/2025 12:00 PM EST Office Visit [facility] [place] [facility] [address], [address] [place] [address] Kaiden Harvey MD [address] [place] [address] Scheduled Referrals Name Type Priority Associated Diagnoses [...] Quantiferon TB Gold (05/06/2025 4:22 PM EDT) Pathologist [facility] Quantiferon TB Gold Plus Result Negative Negative 05/07/2025 8:11 PM EDT [facility] TB Nill Value 0.0799 IU/mL 05/07/2025 8:11 PM EDT [facility] TB Antigen 1 -0.0075 IU/mL 05/07/2025 8:11 PM EDT [facility] TB Antigen 2 0.0026 IU/mL 05/07/2025 8:11 PM EDT [facility] TB Mitogen 9.9201 IU/mL 05/07/2025 8:11 PM EDT [facility] Blood Venous blood specimen / Unknown Venipuncture / Unknown 05/06/2025 4:22 PM EDT 05/06/2025 4:56 PM EDT Narrative [facility] - 05/07/2025 8:11 PM EDT Responses to the Mitogen positive control and occasionally to TB antigen can be above the assay range. For calculation purposes: IFN-gamma values > 10 IU/mL are handled as 10 IU/mL. us Sumi Land MD LAB BLOOD ORDERABLES Final Res ult Performing Organization Address City/[facility]/ZIP Co de Phone Number [address] [address] * Hepatitis B Surface Antibody, Quantitative (05/06/2025 4:22 PM EDT) Pathologist [facility] Hepatitis B Surface Antibody, Quantitative <8.00 NonReactiv e: <8, Grayzone: 8 - <12, Reactive: >= 12 mIU/mL 05/06/2025 7:20 PM EDT [facility] Comment: Nonreactive. Individual is considered not immune to HBV infection. Blood Venous blood specimen / Unknown Venipuncture / Unknown 05/06/2025 4:22 PM EDT 05/06/2025 4:46 PM EDT us Sumi Land MD LAB BLOOD ORDERABLES Final Res ult [facility] [address] [place] [address] * Hepatitis panel, acute (05/06/2025 4:22 PM EDT) Hepatitis B Surf Antigen Negative Negative 05/06/2025 7:24 PM EDT [facility] Hepatitis C Antibody Negative Negative 05/06/2025 7:24 PM EDT [facility] Hepatitis A Antibody IgM Negative Negative 05/06/2025 7:24 PM EDT [facility] Hepatitis B Core Antibody IgM Negative Negative 05/06/2025 7:24 PM EDT [facility] Blood Venous blood specimen / Unknown Venipuncture / Unknown 05/06/2025 4:22 PM EDT 05/06/2025 4:47 PM EDT us Sumi Land MD LAB BLOOD ORDERABLES Final Res ult [facility] [address] [place] [address] * (ABNORMAL) BMP (05/06/2025 1:25 PM EDT) Glucose, Plasma 174(H) 74 - 99 mg/dL 05/06/2025 1:50 PM EDT [facility] BUN, Plasma 74(H) 7 - 21 mg/dL 05/06/2025 1:50 PM EDT [facility] Creatinine, Plasma 5.20(H) 0.60 - 1.10 mg/dL 05/06/2025 1:50 PM EDT [facility] BUN/Creatinine Ratio 14 05/06/2025 1:50 PM EDT [facility] Sodium, Plasma 136 136 - 145 mmol/L 05/06/2025 1:50 PM EDT [facility] Potassium, Plasma 3.4(L) 3.6 - 4.9 mmol/L 05/06/2025 1:50 PM EDT [facility] Chloride, Plasma 96(L) 97 - 107 mmol/L 05/06/2025 1:50 PM EDT [facility] CO2, Plasma 20(L) 22 - 29 mmol/L 05/06/2025 1:50 PM EDT [facility] Anion Gap 20(H) 6 - 16 mmol/L 05/06/2025 1:50 PM EDT [facility] Total Calcium, Plasma 7.0(L) 8.9 - 10.2 mg/dL 05/06/2025 1:50 PM EDT [facility] eGFRcr 9.2 mL/min/1.7 3m*2 05/06/2025 1:50 PM EDT [facility] Comment:Reported eGFRcr in m L/min/1.73m2 is based the CKD-EPI 2020 equation that does not use a race coefficient. Blood Venous blood specimen / Unknown Venipuncture / Unknown 05/06/2025 1:25 PM EDT 05/06/2025 1:27 PM EDT us Sena Navarro MD LAB BLOOD ORDERABLES Final Resu lt [facility] [address] [place] [address] * (ABNORMAL) CBC w/diff (05/06/2025 1:25 PM EDT) WBC Count 5.44 3.70 - 10.30 10*3/uL LAB HEMATOLOGY METHOD 05/06/2025 4:07 PM EDT [facility] RBC Count 3.16(L) 3.90 - 5.20 10*6/uL LAB HEMATOLOGY METHOD 05/06/2025 4:07 PM EDT [facility] HGB 9.3(L) 11.2 - 15.7 g/dL LAB HEMATOLOGY METHOD 05/06/2025 4:07 PM EDT [facility] HCT 31.7(L) 34.0 - 45.0 % LAB HEMATOLOGY METHOD 05/06/2025 4:07 PM EDT [facility] Platelet Count 42(L) 155 - 369 10*3/uL LAB HEMATOLOGY METHOD 05/06/2025 4:07 PM EDT [facility] MCV 100(H) 79 - 98 fL LAB HEMATOLOGY METHOD 05/06/2025 4:07 PM EDT [facility] MCH 29.4 26.0 - 32.0 pg LAB HEMATOLOGY METHOD 05/06/2025 4:07 PM EDT [facility] MCHC 29.3(L) 30.7 - 35.5 g/dL LAB HEMATOLOGY METHOD 05/06/2025 4:07 PM EDT [facility] RDW 15.1(H) 11.5 - 14.5 % LAB HEMATOLOGY METHOD 05/06/2025 4:07 PM EDT [facility] MPV LAB HEMATOLOGY METHOD 05/06/2025 4:07 PM EDT [facility] Comment:Not Measured nRBC 0.0 <=0.0 per 100 WBCs LAB HEMATOLOGY METHOD 05/06/2025 4:07 PM EDT [facility] Differential Type Automated LAB HEMATOLOGY METHOD 05/06/2025 4:07 PM EDT [facility] Neutrophils % 74 % LAB HEMATOLOGY METHOD 05/06/2025 4:07 PM EDT [facility] Lymphocytes % 14 % LAB HEMATOLOGY METHOD 05/06/2025 4:07 PM EDT [facility] Monocytes % 9 % LAB HEMATOLOGY METHOD 05/06/2025 4:07 PM EDT [facility] Eosinophils % 2 % LAB HEMATOLOGY METHOD 05/06/2025 4:07 PM EDT [facility] Basophils % 1 % LAB HEMATOLOGY METHOD 05/06/2025 4:07 PM EDT [facility] Immature Granulocytes % 0 % LAB HEMATOLOGY METHOD 05/06/2025 4:07 PM EDT [facility] Neutrophils Absolute 4.04 1.60 - 6.10 10*3/uL LAB HEMATOLOGY METHOD 05/06/2025 4:07 PM EDT [facility] Lymphocytes Absolute 0.74(L) 1.20 - 3.90 10*3/uL LAB HEMATOLOGY METHOD 05/06/2025 4:07 PM EDT [facility] Monocytes Absolute 0.48 0.30 - 0.90 10*3/uL LAB HEMATOLOGY METHOD 05/06/2025 4:07 PM EDT [facility] Eosinophils Absolute 0.11 0.00 - 0.50 10*3/uL LAB HEMATOLOGY METHOD 05/06/2025 4:07 PM EDT [facility] Basophils Absolute 0.05 0.00 - 0.10 10*3/uL LAB HEMATOLOGY METHOD 05/06/2025 4:07 PM EDT [facility] Immature Granulocytes Absolute 0.02 0.00 - 0.06 10*3/uL LAB HEMATOLOGY METHOD 05/06/2025 4:07 PM EDT [facility] Blood Venous blood specimen / Unknown Venipuncture / Unknown 05/06/2025 1:25 PM EDT 05/06/2025 1:27 PM EDT Narrative [facility] - 05/06/2025 4:07 PM EDT Therapeutic decision making should be based on absolute values, rather than percentages. us Sena Navarro MD LAB BLOOD ORDERABLES Final Resu lt [facility] [address] [place] [address] documented in this encounter Visit Diagnoses Diagnosis Renal mass- Primary Unspecified disorder of kidney and ureter ESRD (end stage renal disease) End stage renal disease documented in this [...] documented as of this encounter Care Teams Plasterer Foreman Relationship Specialty Start Date End Date Rosemarie Riley, STEVE [address] [place] [address] PCP - General 04/02/25 documented as of this encounter
--- OUTSIDE RECORDS SUMMARY | 2025-06-01 16:48 | XMS_ITS | Encounter Summary ---
Author Organization [facility] Address [address] [place] [address] Care Team Providers Care Aquatic Performer Name Role Phone Rosemarie Riley APRN Primary Care Provider [phone] Haydee Mccloud Unavailable Unavailable Reason for Referral * Consultation (Routine) - Authorized Specialty Diagnoses / Procedures Referred By Rebeca reynolds Referred To Contact Ophthalmology Diagnoses History of glaucoma Mayra Rogers MD [address] [place] [address] Phone: tel: fax: Referral ID Status Reason Start Date Expiration Date Visits Requested Visits Authorized [id number] Authorized Specialty Services Required 06/10/2025 12/10/2026 1 1 Scheduling Instructions Please schedule for history of neovascular glaucoma and vitreous hemorrhage of left eye * Consultation (Routine) - Authorized Specialty Diagnoses / Procedures Referred By Rebeca t Referred To Contact Cardiology Diagnoses Coronary artery disease involving coronary bypass graft of menominee heart without angina pectoris Chronic congestive heart failure, unspecified heart failure type Mayra Rogers MD [address] [place] [address] Phone: tel: fax: Referral ID Status Reason Start Date Expiration Date Visits Requested Visits Authorized [id number] Authorized Specialty Services Required 06/10/2025 12/10/2026 1 1 * Consultation (Routine) - Pending Review Specialty Diagnoses / Procedures Referred By Jessicaac t Referred To Contact Pulmonology Diagnoses Acute hypoxic respiratory failure Chronic obstructive pulmonary disease with acute exacerbation (CMS/HCC) Mayra Rogers MD [address] [place] [address] Phone: tel: fax: [facility] [address] [place] [address] Phone: tel: fax: Referral ID Status Reason Start Date Expiration Date V isits Requested Visits Authorized [id number] Pending Review 06/10/2025 12/10/2026 1 1 * Consultation (Routine) - Authorized Specialty Diagnoses / Procedures Referred By Rebeca reynolds Referred To Contact Family Medicine Diagnoses End-stage renal disease needing dialysis (CMS/HCC) Severe protein-calorie malnutrition (CMS/HCC) Hypertension, unspecified type Hypothyroidism, unspecified type Hyperlipidemia, unspecified hyperlipidemia type Anemia, unspecified type Mood disorder (CMS/HCC) Mayra Rogers MD [address] [place] [phone] Phone: tel: fax: Referral ID Status Reason Start Date Expiration Date V isits Requested Visits Authorized [id number] Authorized 06/10/2025 12/10/2026 1 1 * Imaging (Routine) - Closed Specialty Diagnoses / Procedures Referred By Rebeca reynolds Referred To Contact Radiology Diagnoses ESRD (end stage renal disease) Unspecified complication of cardiac and vascular prosthetic device, implant and graft, subsequent encounter Procedures IR Angiogram ArterioVenous Shunt Medina Ferris MD [address] [address] Phone: tel: fax: Referral ID Status Reason Start Date Expiration Date Visits Re quested Visits Authorized [id number] Closed 05/13/2025 11/12/2026 1 1 * Home Health (Routine) - Authorized Specialty Diagnoses / Procedures Referred By Rebeca reynolds Referred To Contact Home Health Services Diagnoses Acute pulmonary edema (CMS/HCC) Mayra Rogers MD [address] [place] [address] Phone: tel: fax: Referral ID Status Reason Start Date Expiration Date Visits Requested Visits Authorized [id number] Authorized Specialty Services Required 06/04/2025 12/04/2026 999 999 Reason for Visit * Reason Comments Fistula problem * Auth/Cert (Routine) Specialty Diagnoses / Procedures Referred By Rebeca reynolds Referred To Contact Diagnoses Acute pulmonary edema (CMS/HCC) GI bleed End-stage renal disease needing dialysis (CMS/HCC) Mayra Rogers MD [address] [place] [address] Phone: tel: fax: [facility] [address] [place] [address] Phone: tel: Referral ID Status Reason Start Date Expiration Date Visits Re quested Visits Authorized [id number] 1 1 Encounter Details Date Type Department Care Team (Late st Contact Info) Description 06/01/2025 4:48 PM EDT - 06/10/2025 4:54 PM EDT Hospital Encounter [facility] [address] [place] [address] Faiza Garvin MD [address] [place] [phone] Senthil Carnes MD [address] [place] [phone] Neno Yancey MD [address] [place] [address] Mayra Rogers MD [address] [place] [phone] Acute pulmonary edema (CMS/HCC) (Primary Dx); End-stage [...] artery disease involving coronary bypass graft of menominee heart without angina pectoris; History of glaucoma; [...] and Family Not on file 06/25/2024 Attends [employer] Not on file 06/25 Active Member [...] any time in the past 12 m [facility], were you homeless or living in a [facility] (including now)? No 06/03/2025 [facility] Utilities Answer Date Recorded In the [...] drink first t jacqueline in the morning (EYE-BANDER OPERATOR) to steady your nerves or to [...] a day with meals. 60 tablet 06/10/2025 5 doxazosin (Cardura) 2 MG tablet Take [...] mouth daily before breakfast. 30 tablet 06/11/2025 5 Methoxy PEG-Epoetin Beta (Mircera) 200 MCG/0.3ML solution [...] up to 7 days. 21 tablet 06/10/2025 5 documented as of this encounter Miscellaneous Notes * Mayra Fuchs RN - 06/10/2025 2:59 PM EDT Images from the original note were not included. [id number] Pulmonary Edema Your healthcare provider has told [...] ankle Last Reviewed Date: 2023 00:00:00 ?? [id number] [employer]. All rights reserved. This information is not [...] Note Mar Waldron 55 y.o. female CSN: [id number] Admission: 06/01/2025 4:48 PM Primary Problem: Acute hypoxic respiratory failure Primary Oak Tanner: Primary Caregiver: Family Assistance Available at Discharge: Current Outpatient/Agency/Support Group: outpatient hemodialysis Availability of Care Givers (#Hours): 24 hours (Family can provide 24/7 care- Patient lives with 2 adult sons and [id number]) Family/Oak Tanner(s) Willingness Assessed to care for patient at home: Yes Family/Oak Tanner(s) Readiness Assessed to care for patient at home: Yes Housing Circumstances-Z Codes: Housing Circumstances (select all that apply): Low Income (101-300% Federal Poverty Guidlines) - Z596 Discharge Facility/Level of Care Needs: Discharge Facility/Level of Care Needs: 1-Home or Self Care - Family can provide 24/7 care as needed. Patient's Choice of Community Agency(s): Patient's Choice of Community Agency(s): [facility] Patient/Family Anticipated Services at Transition: Patient/Family Anticipated [...] family no longer wanting to go to [facility]. CM went to bedside and was informed that patient wanting to go home, family can provide 24/7 care as needed, and patient's PCP is currently working on getting home health set up for PT/OT. Denies any CM d/c needs at this time. Went over IMM letter with patient and family, they verbalized understanding. CM will send DC Summary To [facility]- Patient has current HD chair on MWF. CM updated [facility]- Milagros, no longer needing KELLY. CM went overthat patient is only uses about 25% of patient effort with transfers. They stated that's better than when she came here, and can transfer patient and provide ride home without difficulty-denied any needs. CM will continue to follow until discharged. Addendum [id number]: CM called and spoke to [facility] and informed her of discharge today and faxed DC Summary to f: [phone]. Rosemary Song * Discharge Summary - Bobby Rose MD - 06/10/2025 2:41 PM EDT Hospitalization Admit Date/Time: 06/01/2025 4:48 PM Admitting Attending: Mayra Rogers Discharge Date: 06/10/2025 Discharge Attending Physician: Mayra Rogers MD PCP name and Address: Rosemarie Riley, ACADEMIC DEPARTMENT CHAIR [address] [facility] / [place] [address] Referring provider name and address: No referring provider defined for this encounter. Chief Concern, Brief History of Present Illness, and Hospital Course Mar Waldron is a 55-year-old female appearing much older than stated age with past medical historyof and uric end-stage renal disease on intermittent hemodialysis (MWF at [facility]), undifferentiated renal mass, hypertension, reported COPD, [...] to missed dialysis - Dialysis chair at [facility] on a MWF schedule - Dry weight [...] and management per PCP #CAD w/ prior MO with COSME to mLAD with prior stenting [...] Chronic pain: Discharge with 7 days of [place] due to missing pain clinic appointment while [...] Your Medications These medications were sent to [facility] [address] [address] aspirin 81 MG chewable tablet carvedilol 12.5 MG tablet hydrALAZINE 25 MG tablet levothyroxine 88 MCG tablet naloxone 4 mg/0.1 mL nasal spray oxyCODONE-acetaminophen 10-325 MG tablet Discharge Diagnosis Medical Problems Active and Resolved Hospital Problems Hospital ESRD (end stage renal disease) (CMS/HCC) CHF (congestive heart failure) (CMS/HCC) CAD (coronary artery disease) Anemia Severe protein-calorie malnutrition (CMS/HCC) HTN (hypertension) HLD (hyperlipidemia) Hypothyroidism Mood disorder (CMS/HCC) History of glaucoma Chronic obstructive pulmonary disease with acute exacerbation (CMS/HCC) RESOLVED: Pleural effusion * (Principal) RESOLVED: Acute hypoxic respiratory failure RESOLVED: Acute pulmonary edema (CMS/HCC) RESOLVED: GI bleed RESOLVED: Acute encephalopathy Post [...] Center 07/05/2025 1:00 PM Sobia Goldberg PA [facility] Test Results Pending At Discharge Pertinent Physical [...] - 06/10/2025 1:22 PM EDT Diagnosis Code: 30126 Subjective: Patient seen and evaluated on HD. [...] from the original note were not included. [facility] Medicine Progress Note Subjective Subjective Resting [...] Active Problems: ESRD (end stage renal disease) ([facility]/HCC) CHF (congestive heart failure) ([facility]) Pleural effusion Acute pulmonary edema ([facility]/HCC) GI bleed Mar Waldron is a 55 [...] after resuming dialysis - Dialysis chair at [facility] on a MWF schedule - Dry weight 59kg PLAN - Renvela 800 mg TID with meals - Nephrology managing MWF inpatient dialysis #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, Malnutrition, & Inability to Perform ADLs - PT/OT recommended subacute rehab: Referral sent to [facility] - Follow-up bed availability on Tuesday #CAD w/ prior MO with COSME to mLAD with prior stenting [...] syndrome: daily CMP, Mg, phos monitoring - Heel Nail Rasper following - Zack once daily, boost three [...] MD * Progress Notes - Nai Argueta, ASSISTANT ENGINEER - 06/09/2025 8:24 AM EDT Physical Therapy Treatment Patient Name: Mar Waldron Today's Date: 06/09/2025 Total Treatment Time: 24 min PT Discharge Recommendations: Subacute rehab Equipment Recommended: Defer to facility Subjective The patient states, I am doing okay. Participants in Care Family/Caregiver Present: No Truck Driver Teamster: Not Applicable Presentation Oxygen: Supplemental oxygen Nasal [...] sequencing. Bed Mobility Exam: Rolling/Turning Level of [place] Line: Minimum assist (75% patient effort) Physical/Nonphysical Assist: Additional assist utilized for safety, Verbal Cues, Set-up required Assistive Device: Bed rails, Other (drawsheet) Bed Mobility Exam: Scooting/Bridging Level of [place] Line: Dependent (to scoot to edge of bed in sitting) Physical/Nonphysical Assist: Additional assist utilized for safety, Verbal Cues, Set-up required Assistive Device: Other (drawsheet) Bed Mobility Exam: Supine to Sit Level of [place] Line: Maximum assist (25% patient's effort) Physical/Nonphysical Assist: Additional assist utilized for safety, HOB elevated, Verbal Cues, Set-up required Assistive Device: Other (drawsheet) Transfers Transfer Intervention: Verbal cues provided for correct bilateral hand and foot placement during sit to stand transfers. Transfer Exam: Sit to stand Level of [place] Line: Maximum assist (25% patient's effort) Physical/Nonphysical Assist: Additional assist utilized for safety, Verbal Cues, Set-up required Assistive Device: Hand held assist Transfer Exam: Stand to Sit Level of [place] Line: Maximum assist (25% patient's effort) Physical/Nonphysical Assist: Additional assist utilized for safety, Verbal Cues, Set-up required Assistive Device: Hand held assist Transfer Exam: Bed to Chair/Chair to Bed Level of [place] Line: Maximum assist (25% patient's effort) Physical/Nonphysical Assist: [...] PM. * Progress Notes - Jigar Miller E - 06/09/2025 8:23 AM EDT Occupational Therapy Treatment Patient Name: Mar Waldron Today's Date: 06/09/2025 OT Discharge Recommendations: Subacute rehab Equipment Recommended: Defer to facility Subjective Patient agreeable to OT tx this a.m. Participants in Care Family/Caregiver Present: No Truck Driver Teamster: Not Applicable Presentation Oxygen Therapy: Supplemental oxygen [...] Mobility Bed Mobility Exam: Rolling/Turning Level of [place] Line: Minimum assist (75% patient effort) Physical/Nonphysical Assist: Additional assist utilized for safety, Verbal Cues, Set-up required Bed Mobility Exam: Scooting/Bridging Level of [place] Line: Dependent Physical/Nonphysical Assist: Additional assist utilized for safety, Verbal Cues, Set-up required Bed Mobility Exam: Supine to Sit Level of [place] Line: Maximum assist (25% patient's effort) Physical/Nonphysical Assist: Additional assist utilized for safety, HOB elevated, Verbal Cues, Set-up required Bed Mobility Exam: Sit to Supine Level of [place] Line: Maximum assist (25% patient's effort) Physical/Nonphysical Assist: Additional assist utilized for safety Transfers Transfer Exam: Sit to stand Level of [place] Line: Maximum assist (25% patient's effort) Physical/Nonphysical Assist: Additional assist utilized for safety, Verbal Cues, Set-up required Assistive Device: Hand held assist Transfer Exam: Stand to Sit Level of [place] Line: Maximum assist (25% patient's effort) Physical/Nonphysical Assist: Additional assist utilized for safety, Verbal Cues, Set-up required Assistive Device: Hand held assist Transfer Exam: Bed to Chair/Chair to Bed Level of [place] Line: Maximum assist (25% patient's effort) Physical/Nonphysical Assist: [...] Continue OT tx plan until discharge to [facility] setting. Goals OT GOAL DETAILS Goal [...] possible discharge to subacute rehab. Jeremy Perez [phone] Patient states that she has lost her [...] RN Outcome: Ongoing, Progressing Flowsheets (Taken 06/09/2025 0810) Patient/Family-Specific Goals (Include Timeframe): Patient will remain [...] 08) Pain Management Interventions: medication (see MAR) rmaqps-mdq-qzpth dosing utilized awakened for pain meds per patient request ambulation/increased activity breathing exercises care clustered 06/08/20252112 by Hazel Pham RN Flowsheets (Taken 06/08/2025 1629) Pain Management Interventions: medication (see MAR) oroowl-sri-vdlry dosing utilized awakened for pain meds per [...] by Hazel Pham RN Flowsheets (Taken 06/08/2025 0800) Oral Nutrition Promotion: rest periods promoted social interaction promoted calorie-dense foods provided calorie-dense liquids provided Nutrition Interventions: food preferences provided Problem: Fall Injury Risk Goal: Absence of Fall and Fall-Related Injury 06/09/2025812 by Hazel Pham RN Outcome: Ongoing, Progressing 06/08/20252112 by Hazel Pham RN Outcome: Ongoing, Progressing Intervention: Identify and Manage Contributors 06/09/2025812 by Hazel Phma RN Flowsheets Taken 06/09/2025 08 Medication Review/Management: [...] Hazel Pham RN Flowsheets Taken 06/09/2025 08 Head of Bed (HOB) Positioning: HOB elevated Taken 06/09/2025 08 Airway/Ventilation Management: airway patency maintained oxygen [...] in use pillows repositioning sheet Taken 06/09/2025 08 Activity Management: activity adjusted per tolerance activity [...] Intervention: Prevent or Manage Infection Flowsheets (Taken 06/09/2025 0332) Infection Management: aseptic technique maintained Fever Reduction/Comfort [...] Prevention/Management: medication Intervention: Prevent Infection Flowsheets (Taken 06/08/2025 08) Infection Prevention: cohorting utilized hand hygiene promoted Goal: Optimal Comfort and Wellbeing Outcome: Ongoing, Progressing Socialization encouraged. Phone calls from son encouraged. Intervention: Monitor Pain and Promote Comfort Flowsheets (Taken 06/08/2025 1629) Pain Management Interventions: medication (see MAR) bxsijh-xyq-olkxi dosing utilized awakened for pain meds per patient request care clustered diversional activity provided emotional support Intervention: Provide Person-Centered Care Flowsheets (Taken 06/08/2025 08) Trust Relationship/Rapport: care [...] consulted Intervention: Promote Injury-Free Environment Flowsheets (Taken 06/08/20251599) Safety Promotion/Fall Prevention: activity supervised Problem: Gas [...] Utilized: wheelchair Positioning/Transfer Devices: wedge pillows Taken 06/08/20251599 Activity Management: activity adjusted per [...] Active Problems: ESRD (end stage renal disease) ([facility]) CHF (congestive heart failure) ([facility]) Pleural effusion Acute pulmonary edema ([facility]) GI bleed Mar Waldron is a 55 [...] after resuming dialysis - Dialysis chair at [facility] on a MWF schedule - Dry weight 59kg PLAN - Renvela 800 mg TID with meals - Hold other scheduled dialysis medications at this time - Nephrology following #Chronic anemia and thrombocytopenia - Anemia and thrombocytopenia better explained by ESRD PLAN - Further workup outpatient, possible need for UMESH in the futur #CAD w/ prior MO with COSME to mLAD with prior stenting [...] Malnutrition - High Risk for Refeeding - Heel Nail Rasper following - Zack once daily, boost three times a day #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, Malnutrition, & Inability to Perform ADLs - PT/OT recommended subacute rehab: Referral sent to [facility] #Stage 3 Pressure Ulcer - Wound care [...] Note Mar Waldron 55 y.o. female CSN: [id number] Admission: 06/01/2025 4:48 PM Primary Problem: Acute hypoxic respiratory failure SW received hand off to follow up on referral with [facility] at [facility] in [facility] [phone]. SW left for call back. KENNETH will update when call back is received. Mayra Brody AML ANALYST, MARBLE SETTER Case Management * Care Plan - Aranza [...] 2:36 PM. * Care Plan - Ean Cowart, RN - 06/07/2025 11:04 AM EDT Problem: [...] Identify and Manage Contributors Flowsheets (Taken 06/07/2025 110) Medication Review/Management: medications reviewed dosing adjusted Self-Care [...] Device Care and Function Flowsheets (Taken 06/07/2025 110) Medication Review/Management: medications reviewed dosing adjusted Goal: Effective Tissue Perfusion Intervention: Optimize Blood Flow Flowsheets (Taken 06/07/2025 1102) Stabilization Measures: legs elevated Goal: Absence of Infection Signs and Symptoms Intervention: Prevent or Manage Infection Flowsheets (Taken 06/07/2025 110) Infection Management: aseptic technique maintained Fever Reduction/Comfort Measures: lightweight bedding Infection Prevention: hand hygiene promoted * Consults - Sobia Russo RD - 06/07/2025 9:07 AM EDT Adult Nutrition Evaluation Note Mar Waldron 55 y.o. female CSN: [id number] Room/Bed 879/879L Nutrition evaluation type: assessment Reason for evaluation: [facility] course: 55 yoF presents to ED 06/01 with concern for thrombosed fistula. Pt son recently moved her from [place] to [place] d/t concerns of overall health and well-being: [...] Supplemental oxygen O2 Delivery Method: Nasal cannula [place] Coma Scale Score: 14 Ranjeet Scale Score: [...] (Calculated): 20.82 Weight Evaluation: Normal (BMI 18.5-24.9) [place] Body Weight (kg): 61.3 Percent [place] Body Weight: 97 Estimated Needs: Metabolic Cart Study Results: Current Nutrition Intake: Diet Supplements: None Diet Order: Adult Diet Diet Texture: Regular Electrolyte Restriction: Renal Percent Meals Eaten (%): None recorded to review Diet Experience and Nutrition History: Diet Education Provided: Will monitor Pertinent home medications: atorvastatin, calcitriol, levothyroxine, protonix Holiness needs: Nutrition Focused Physical Exam: Unable to [...] HLD, and HFpEF who was admitted to [facility] on 06/02 for concerns of thrombosed fistula. Outpatient HD: - Schedule: MWF - Dialysis Unit: [facility] - Outpatient Recovery Room Nurse: Dr. Summers - Residual renal functions: Minimal [...] Jenae Jones MD Nephrology Fellow PGY-5 Page: [phone] [1] Patient Active Problem List Diagnosis Volume overload ESRD (end stage renal disease) ([facility]) CHF (congestive heart failure) ([facility] Pleural effusion Acute hypoxic respiratory failure Acute pulmonary edema ([facility]) GI bleed [2] amLODIPine, 5 mg, Oral, [...] Device Care and Function Flowsheets (Taken 06/07/2025 07) Medication Review/Management: medications reviewed Goal: Effective Tissue Perfusion Outcome: Ongoing, Progressing Intervention: Optimize Blood Flow Flowsheets (Taken 06/07/2025 07) Stabilization Measures: legs elevated Goal: Absence of [...] Dulcolax later. Stillwants subacute rehab placement at [facility]. Objective Objective Last Recorded Vitals Blood pressure [...] Active Problems: ESRD (end stage renal disease) ([facility]) CHF (congestive heart failure) ([facility]/HCC) Pleural effusion Acute pulmonary edema (CMS/HCC) GI [...] to missed dialysis - Dialysis chair at [facility] on a MWF schedule - Dry weight [...] #CAD w/ prior stenting - Hx of MO with COSME to mLAD, distant - Home [...] Malnutrition - High Risk for Refeeding - Heel Nail Rasper following - Zack once daily, boost three times a day #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, Malnutrition, & Inability to Perform ADLs - PT/OT recommended subacute rehab: Referral sent to [facility] #Stage 3 Pressure Ulcer - Wound care [...] stop tx and will try again tomorrow. Contactedsunday GUIDRY and explained the situation and care of infiltrated HD accesses. * Progress Notes - Sobia Jeffers RN - 06/06/2025 1:25 PM EDT Patient receiving HD today and tomorrow; Cm sent referral to [facility]; facility reviewing/ awaiting response. CM will continue [...] and Manage Fall Risk Flowsheets (Taken 06/06/2025 1139) Safety Promotion/Fall Prevention: safety round/check completed Goal: [...] Intervention: Optimize Blood Flow Flowsheets (Taken 06/06/2025 1139) Stabilization Measures: legs elevated Goal: Absence of [...] HLD, and HFpEF who was admitted to [facility] on 06/02 for concerns of thrombosed fistula. Outpatient HD: - Schedule: MWF - Dialysis Unit: [facility] - Outpatient Recovery Room Nurse: Dr. Summers - Residual renal functions: Minimal [...] Jenae Jones MD Nephrology Fellow PGY-5 Page: [phone] [1] Patient Active Problem List Diagnosis Volume overload ESRD (end stage renal disease) (CMS/HCC) CHF (congestive heart failure) ([facility]) Pleural effusion Acute hypoxic respiratory failure Acute [...] failure) (CMS/HCC) Pleural effusion Acute pulmonary edema ([facility]/HCC) GI bleed Mar Waldron is a 55 [...] to missed dialysis - Dialysis chair at [facility] on a MWF schedule - Dry weight [...] need for UMESH #CAD - Hx of MO with COSME to mLAD, distant - Home [...] Malnutrition - High Risk for Refeeding - Heel Nail Rasper consulted #Adult Failure To Thrive with Weight [...] Optimize Oxygenation and Ventilation Flowsheets (Taken 06/06/2025 0354) Airway/Ventilation Management: oxygen therapy provided Head of Bed (HOB) Positioning: HOB elevated Problem: Mobility Impairment Goal: Optimal Mobility Outcome: Ongoing, Progressing Intervention: Optimize Mobility Flowsheets (Taken 06/06/2025 0354) Activity Management: activity adjusted per tolerance Assistive [...] Prevent or Manage Infection Flowsheets (Taken 06/06/2025 035) Infection Management: aseptic technique maintained Fever Reduction/Comfort [...] Identify and Manage Fall Risk Flowsheets (Taken 06/05/2025829) Safety Promotion/Fall Prevention: activity [...] reach Intervention: Promote Injury-Free Environment Flowsheets (Taken 06/05/2025829) [...] Not Progressing Intervention: Optimize Mobility Flowsheets (Taken 06/05/2025 1822) Activity Management: activity adjusted per tolerance Assistive [...] pt was not appropriate for education. Left [facility]'s Renal Nutrition handouts at bedside for family. [...] Active Problems: ESRD (end stage renal disease) ([facility]) CHF (congestive heart failure) ([facility]) Pleural effusion Acute pulmonary edema ([facility]) GI bleed Mar Waldron is a 55 y.o. female admitted for acute hypoxic respiratory failure This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 texture: Regular; Electrolyte Restriction: Renal GI: no PPI DVT prophylaxis: SCDs CODE: Full Code , confirmed with [facility] SOCIAL: Lives with 2 sons who are primary caregivers, recently moved from [place] PT/OT: consulted, appreciate recommendations Consultants: Nephrology DISPO/Discharge Criteria: [ ] HD [ ] Improvement [ ] In O2 requirement echo Medically Ready for Discharge:Anticipated Tomorrow Edvin Du DO, MS, MS Family Medicine, PGY-3 [facility] [1] Past Medical History: Diagnosis Date Arthritis CHF (congestive heart failure) ([facility]/HCC) Chronic renal failure Coronary artery disease Diabetes mellitus ([facility]) HTN (hypertension) Hypothyroidism Renal cancer ([facility]) [2] Patient Active Problem List Diagnosis Volume overload ESRD (end stage renal disease) ([facility]) CHF (congestive heart failure) ([facility]) Pleural effusion Acute hypoxic respiratory failure [3] [...] time. History provided by: Patient and relative parts interpreter used: Liz Manuel is a 55 year [...] and Affect: Mood normal. Behavior: Behavior normal. [place] Coma Scale Score: 15 ED Course & [...] 06/01/20252022 Date/Time Order Dose Route Action 06/01/2025 190 EDT azithromycin (Zithromax) 500 mg in sodium [...] JAY MATTHEWS 06/01/251913 Once Canceled JAY MATTHEWS 06/01/251858 VAS US Hemodialysis Access Left Once Acknowledged FAIZA GARVIN Meena 06/01/251857 Initiate contact isolation Continuous Comments: Added [...] (Aerobic/Anaerobet Set) STAT In process JAY MATTHEWS 06/01/25 1838 Blood Culture (Aerobic/Anaerobet Set) STAT In process JAY MATTHEWS 06/01/25 1636 EKG now - STAT (adult) Once Preliminary result KLARISSA MONTERROSO Simon 06/01/25 1636 XR Chest 1 View One time imaging Final result KLARISSA MONTERROSO Simon 06/01/25 1636 CMP STAT Final result KLARISSA MONTERROSO Simon 06/01/25 1636 CBC STAT Final result LOC KLARISSA Simon 06/01/25 1636 Magnesium STAT Final result LOC KLARISSA Simon 06/01/25 1636 Phosphorus STAT Final result KLARISSA MONTERROSO Simon 06/01/25 1636 Blood gas panel, venous STAT Final result KLARISSA MONTERROSO Simon ED Course as of 06/01/252022 Sat Jun 01, 2025 1710 Hemoglobin(!): 8.6 H and H low but not in need of transfusion [SH] 180 Creatinine(!): 3.87 Likely secondary to ESRD and lack of dialysis [] 2019 SARS-CoV-2, Flu A, Flu B, and RSV - Rapid Hutchins negative [] 2019 XR Chest 1 View Moderate to large right pleural effusion and bilateral airspace disease, likely reflecting pulmonary edema. [SH] 2019 EKG now - STAT (adult) PACs and bradycardia [] ED Course User Index [SH] Jay Matthews DO Clinical Impressions as of 06/01/252022 Acute pulmonary edema (CMS/HCC) End-stage renal disease needing dialysis (CMS/HCC) Social Determinates of Health Risks (including Economic Stability, Education and level of understanding, Healthcare access and quality and concerning social factors): Poor health literacy Ultimately, this patient was was signed out to the [facility] provider (Signed Out) Patient care assumed by [facility] provider, Dr. Madden, at shift change, tentative [...] they just recently moved the patient from [place] up here with them and the dialysis [...] 2100 Date/Time Order Dose Route Action 06/01/2025 190 EDT azithromycin (Zithromax) 500 mg in sodium chloride 0.9% 250 mL IVPB (vial adapter required) -- Intravenous Canceled Entry 06/01/2025 192 EDT cefTRIAXone (Rocephin) 2 g in sodium chloride 0.9% 100 mL IVPB (vial adapter required) 2 g Intravenous New Bag 06/01/20251951 EDT cefTRIAXone (Rocephin) 2 g in sodium chloride 0.9% 100 mL IVPB (vial adapter required) 0 g Intravenous Stopped ED COURSE: ED Course as of 06/01/252099 Sat Jun 01, 2025 1710 Hemoglobin(!): 8.6 H and H low but not in need of transfusion [] 180 Creatinine(!): 3.87 Likely secondary to ESRD and lack of dialysis [] 2018 SARS-CoV-2, Flu A, Flu B, and RSV - Rapid Hutchins negative [] 2019 XR Chest 1 View Moderate to large right pleural effusion and bilateral airspace disease, likely reflecting pulmonary edema. [] 2019 EKG now - STAT (adult) PACs and bradycardia [] ED Course User Index [SH] Jay Matthews [...] EDT Consult [facility] [address] [place] [address] Sobia Goldberg PA [address] [place] [address] 07/05/2025 2:00 PM EDT Appointment P[facility] H Pulmonary Function Testing [address] [place] [address] 08/20/2025 12:00 PM EST Office Visit [facility] [place] [address], [address] [place] [address] Kaiden Harvey MD [address] [place] [address] Scheduled Orders Name Type Priority Associated Diagnoses Orde r Schedule ECG Adult ECG Routine Chronic obstructive pulmonary disease with acute exacerbation (CMS/HCC) Ordered: 06/10/2025 Pulmonary function testing PFT Routine Chronic obstructive pulmonary disease with acute exacerbation (CMS/HCC) 1 Occurrences starting 06/10/2025 until 12/12/2026 Scheduled Referrals Name Type Priority Associated Diagnoses Orde r Schedule Discharge Ambulatory referral to [facility] Home Health Outpatient Referral Routine Acute [...] artery disease involving coronary bypass graft of [place] heart without angina pectoris Chronic congestive heart failure, unspecified heart failure type (CMS/HCC) Expected: 06/10/2025 (Approximate), Expires: 12/12/2026 Discharge Ambulatory referral to Ophthalmology Outpatient Referral Routine History of glaucoma Expected: 06/10/2025 (Approximate), Expires: 12/12/2026 documented as of this encounter Procedures Procedure [...] PM EDT ESRD (end stage renal disease) ([facility]) Unspecified complication of cardiac and vascular prosthetic [...] CBC and Differential (06/10/2025 4:24 AM EDT) WBC Count 7.28 3.70 - 10.30 10*3/uL LAB HEMATOLOGY METHOD 06/10/2025 4:48 AM EDT [facility] RBC Count 3.10(L) 3.90 - 5.20 10*6/uL LAB HEMATOLOGY METHOD 06/10/2025 4:48 AM EDT [facility] HGB 8.1(L) 11.2 - 15.7 g/dL LAB HEMATOLOGY METHOD 06/10/2025 4:48 AM EDT [facility] HCT 29.1(L) 34.0 - 45.0 % LAB HEMATOLOGY METHOD 06/10/2025 4:48 AM EDT [facility] Platelet Count 64(L) 155 - 369 10*3/uL LAB HEMATOLOGY METHOD 06/10/2025 4:48 AM EDT [facility] MCV 94 79 - 98 fL LAB HEMATOLOGY METHOD 06/10/2025 4:48 AM EDT [facility] MCH 26.1 26.0 - 32.0 pg LAB HEMATOLOGY METHOD 06/10/2025 4:48 AM EDT [facility] MCHC 27.8(L) 30.7 - 35.5 g/dL LAB HEMATOLOGY METHOD 06/10/2025 4:48 AM EDT [facility] RDW 16.0(H) 11.5 - 14.5 % LAB HEMATOLOGY METHOD 06/10/2025 4:48 AM EDT [facility] MPV 12.1 8.8 - 12.5 fL LAB HEMATOLOGY METHOD 06/10/2025 4:48 AM EDT [facility] nRBC 0.0 <=0.0 per 100 WBCs LAB HEMATOLOGY METHOD 06/10/2025 4:48 AM EDT [facility] Differential Type Automated LAB HEMATOLOGY METHOD 06/10/2025 4:48 AM EDT [facility] Neutrophils % 79 % LAB HEMATOLOGY METHOD 06/10/2025 4:48 AM EDT [facility] Lymphocytes % 9 % LAB HEMATOLOGY METHOD 06/10/2025 4:48 AM EDT [facility] Monocytes % 7 % LAB HEMATOLOGY METHOD 06/10/2025 4:48 AM EDT [facility] Eosinophils % 3 % LAB HEMATOLOGY METHOD 06/10/2025 4:48 AM EDT [facility] Basophils % 1 % LAB HEMATOLOGY METHOD 06/10/2025 4:48 AM EDT [facility] Immature Granulocytes % 1 % LAB HEMATOLOGY METHOD 06/10/2025 4:48 AM EDT [facility] Neutrophils Absolute 5.88 1.60 - 6.10 10*3/uL LAB HEMATOLOGY METHOD 06/10/2025 4:48 AM EDT [facility] Lymphocytes Absolute 0.65(L) 1.20 - 3.90 10*3/uL LAB HEMATOLOGY METHOD 06/10/2025 4:48 AM EDT [facility] Monocytes Absolute 0.47 0.30 - 0.90 10*3/uL LAB HEMATOLOGY METHOD 06/10/2025 4:48 AM EDT [facility] Eosinophils Absolute 0.20 0.00 - 0.50 10*3/uL LAB HEMATOLOGY METHOD 06/10/2025 4:48 AM EDT [facility] Basophils Absolute 0.04 0.00 - 0.10 10*3/uL LAB HEMATOLOGY METHOD 06/10/2025 4:48 AM EDT [facility] Immature Granulocytes Absolute 0.04 0.00 - 0.06 10*3/uL LAB HEMATOLOGY METHOD 06/10/2025 4:48 AM EDT [facility] Blood Venous blood specimen / Unknown Venipuncture / Unknown 06/10/2025 4:24 AM EDT 06/10/2025 4:42 AM EDT Narrative [facility] - 06/10/2025 4:48 AM EDT Therapeutic decision making should be based on absolute values, rather than percentages. us Faiza Garvin MD LAB BLOOD ORDERABLES Final Re sult [facility] [address] [place] [address] * (ABNORMAL) Comprehensive Metabolic Panel, Plasma (06/10/2025 4:24 AM EDT) Glucose, Plasma 165(H) 74 - 99 mg/dL 06/10/2025 5:09 AM EDT [facility] BUN, Plasma 57(H) 7 - 21 mg/dL 06/10/2025 5:09 AM EDT [facility] Creatinine, Plasma 3.74(H) 0.60 - 1.10 mg/dL 06/10/2025 5:09 AM EDT [facility] BUN/Creatinine Ratio 15 06/10/2025 5:09 AM EDT [facility] Sodium, Plasma 136 136 - 145 mmol/L 06/10/2025 5:09 AM EDT [facility] Potassium, Plasma 4.1 3.6 - 4.9 mmol/L 06/10/2025 5:09 AM EDT [facility] Chloride, Plasma 99 97 - 107 mmol/L 06/10/2025 5:09 AM EDT [facility] CO2, Plasma 23 22 - 29 mmol/L 06/10/2025 5:09 AM EDT [facility] Anion Gap 14 6 - 16 mmol/L 06/10/2025 5:09 AM EDT [facility] Total Calcium, Plasma 8.2(L) 8.9 - 10.2 mg/dL 06/10/2025 5:09 AM EDT [facility] Total Protein 5.8(L) 6.3 - 7.9 g/dL 06/10/2025 5:09 AM EDT [facility] Albumin, Plasma 2.7(L) 3.5 - 5.2 g/dL 06/10/2025 5:09 AM EDT [facility] AST, Plasma 9(L) 10 - 35 U/L 06/10/2025 5:09 AM EDT [facility] ALT, Plasma <5(L) 10 - 35 U/L 06/10/2025 5:09 AM EDT [facility] Alkaline Phosphatase, Plasma 166(H) 46 - 142 U/L 06/10/2025 5:09 AM EDT [facility] Total Bilirubin, Plasma 0.4 0.2 - 1.1 mg/dL 06/10/2025 5:09 AM EDT [facility] eGFRcr 13.6 mL/min/1.7 3m*2 06/10/2025 5:09 AM EDT [facility] Comment:Reported eGFRcr in m L/min/1.73m2 is based the CKD-EPI 2020 equation that does not use a race coefficient. Blood Venous blood specimen / Unknown Venipuncture / Unknown 06/10/2025 4:24 AM EDT 06/10/2025 4:40 AM EDT us Faiza Garvin MD LAB BLOOD ORDERABLES Final Re sult Performing Organization Address [facility] [place] [address] * Magnesium, Plasma (06/10/2025 4:24 AM EDT) Magnesium, Plasma 2.1 1.9 - 2.4 mg/dL 06/10/2025 5:09 AM EDT [facility] Blood Venous blood specimen / Unknown Venipuncture / Unknown 06/10/2025 4:24 AM EDT 06/10/2025 4:40 AM EDT us Faiza Garvin MD LAB BLOOD ORDERABLES Final Re sult Performing Organization Address [facility] [place] [address] * (ABNORMAL) Phosphorus, Plasma (06/10/2025 4:24 AM EDT) Phosphorus, Plasma 4.6(H) 2.5 - 4.5 mg/dL 06/10/2025 5:09 AM EDT [facility] Blood Venous blood specimen / Unknown Venipuncture / Unknown 06/10/2025 4:24 AM EDT 06/10/2025 4:40 AM EDT us Faiza Garvin MD LAB BLOOD ORDERABLES Final Re sult Performing Organization Address [facility] [place] [address] * (ABNORMAL) CBC and Differential (06/09/2025 4:35 AM EDT) WBC Count 7.05 3.70 - 10.30 10*3/uL LAB HEMATOLOGY METHOD 06/09/2025 5:46 AM EDT [facility] RBC Count 2.80(L) 3.90 - 5.20 10*6/uL LAB HEMATOLOGY METHOD 06/09/2025 5:46 AM EDT [facility] HGB 7.6(L) 11.2 - 15.7 g/dL LAB HEMATOLOGY METHOD 06/09/2025 5:46 AM EDT [facility] HCT 26.9(L) 34.0 - 45.0 % LAB HEMATOLOGY METHOD 06/09/2025 5:46 AM EDT [facility] Platelet Count 60(L) 155 - 369 10*3/uL LAB HEMATOLOGY METHOD 06/09/2025 5:46 AM EDT [facility] MCV 96 79 - 98 fL LAB HEMATOLOGY METHOD 06/09/2025 5:46 AM EDT [facility] MCH 27.1 26.0 - 32.0 pg LAB HEMATOLOGY METHOD 06/09/2025 5:46 AM EDT [facility] MCHC 28.3(L) 30.7 - 35.5 g/dL LAB HEMATOLOGY METHOD 06/09/2025 5:46 AM EDT [facility] RDW 15.9(H) 11.5 - 14.5 % LAB HEMATOLOGY METHOD 06/09/2025 5:46 AM EDT [facility] MPV LAB HEMATOLOGY METHOD 06/09/2025 5:46 AM EDT [facility] Comment:Not Measured nRBC 0.0 <=0.0 per 100 WBCs LAB HEMATOLOGY METHOD 06/09/2025 5:46 AM EDT [facility] Differential Type Automated LAB HEMATOLOGY METHOD 06/09/2025 5:46 AM EDT [facility] Neutrophils % 79 % LAB HEMATOLOGY METHOD 06/09/2025 5:46 AM EDT [facility] Lymphocytes % 9 % LAB HEMATOLOGY METHOD 06/09/2025 5:46 AM EDT [facility] Monocytes % 7 % LAB HEMATOLOGY METHOD 06/09/2025 5:46 AM EDT [facility] Eosinophils % 3 % LAB HEMATOLOGY METHOD 06/09/2025 5:46 AM EDT [facility] Basophils % 1 % LAB HEMATOLOGY METHOD 06/09/2025 5:46 AM EDT [facility] Immature Granulocytes % 1 % LAB HEMATOLOGY METHOD 06/09/2025 5:46 AM EDT [facility] Neutrophils Absolute 5.60 1.60 - 6.10 10*3/uL LAB HEMATOLOGY METHOD 06/09/2025 5:46 AM EDT [facility] Lymphocytes Absolute 0.62(L) 1.20 - 3.90 10*3/uL LAB HEMATOLOGY METHOD 06/09/2025 5:46 AM EDT [facility] Monocytes Absolute 0.50 0.30 - 0.90 10*3/uL LAB HEMATOLOGY METHOD 06/09/2025 5:46 AM EDT [facility] Eosinophils Absolute 0.21 0.00 - 0.50 10*3/uL LAB HEMATOLOGY METHOD 06/09/2025 5:46 AM EDT [facility] Basophils Absolute 0.04 0.00 - 0.10 10*3/uL LAB HEMATOLOGY METHOD 06/09/2025 5:46 AM EDT [facility] Immature Granulocytes Absolute 0.08(H) 0.00 - 0.06 10*3/uL LAB HEMATOLOGY METHOD 06/09/2025 5:46 AM EDT [facility] Blood Venous blood specimen / Unknown Venipuncture / Unknown 06/09/2025 4:35 AM EDT 06/09/2025 5:34 AM EDT Narrative [facility] - 06/09/2025 5:46 AM EDT Therapeutic decision making should be based on absolute values, rather than percentages. us Faiaz Garvin MD LAB BLOOD ORDERABLES Final Re sult [facility] [address] [place] [address] * (ABNORMAL) Comprehensive Metabolic Panel, Plasma (06/09/2025 4:35 AM EDT) Glucose, Plasma 100(H) 74 - 99 mg/dL 06/09/2025 6:01 AM EDT [facility] BUN, Plasma 47(H) 7 - 21 mg/dL 06/09/2025 6:01 AM EDT [facility] Creatinine, Plasma 3.30(H) 0.60 - 1.10 mg/dL 06/09/2025 6:01 AM EDT [facility] BUN/Creatinine Ratio 14 06/09/2025 6:01 AM EDT [facility] Sodium, Plasma 136 136 - 145 mmol/L 06/09/2025 6:01 AM EDT [facility] Potassium, Plasma 3.8 3.6 - 4.9 mmol/L 06/09/2025 6:01 AM EDT [facility] Chloride, Plasma 97 97 - 107 mmol/L 06/09/2025 6:01 AM EDT [facility] CO2, Plasma 24 22 - 29 mmol/L 06/09/2025 6:01 AM EDT [facility] Anion Gap 15 6 - 16 mmol/L 06/09/2025 6:01 AM EDT [facility] Total Calcium, Plasma 8.4(L) 8.9 - 10.2 mg/dL 06/09/2025 6:01 AM EDT [facility] Total Protein 5.9(L) 6.3 - 7.9 g/dL 06/09/2025 6:01 AM EDT [facility] Albumin, Plasma 3.0(L) 3.5 - 5.2 g/dL 06/09/2025 6:01 AM EDT [facility] AST, Plasma 14 10 - 35 U/L 06/09/2025 6:01 AM EDT [facility] Comment:Hemolyzed, result ma y be falsely increased. ALT, Plasma 5(L) 10 - 35 U/L 06/09/2025 6:01 AM EDT [facility] Alkaline Phosphatase, Plasma 171(H) 46 - 142 U/L 06/09/2025 6:01 AM EDT [facility] Total Bilirubin, Plasma 0.4 0.2 - 1.1 mg/dL 06/09/2025 6:01 AM EDT [facility] eGFRcr 15.8 mL/min/1.7 3m*2 06/09/2025 6:01 AM EDT [facility] Comment:Reported eGFRcr in m L/min/1.73m2 is based the CKD-EPI 2020 equation that does not use a race coefficient. Blood Venous blood specimen / Unknown Venipuncture / Unknown 06/09/2025 4:35 AM EDT 06/09/2025 5:32 AM EDT Result Alex Garvin MD LAB BLOOD ORDERABLES Final Re sult Performing Organization Address [facility]/ZIP Co de Phone Number [facility] [address] [place] [address] * Magnesium, Plasma (06/09/2025 4:35 AM EDT) Magnesium, Plasma 2.1 1.9 - 2.4 mg/dL 06/09/2025 6:01 AM EDT [facility] Blood Venous blood specimen / Unknown Venipuncture / Unknown 06/09/2025 4:35 AM EDT 06/09/2025 5:32 AM EDT us Faiza Garvin MD LAB BLOOD ORDERABLES Final Re sult Performing Organization Address [facility] Co de Phone Number [facility] [address] [place] [address] * Phosphorus, Plasma (06/09/2025 4:35 AM EDT) Phosphorus, Plasma 4.2 2.5 - 4.5 mg/dL 06/09/2025 6:01 AM EDT [facility] Blood Venous blood specimen / Unknown Venipuncture / Unknown 06/09/2025 4:35 AM EDT 06/09/2025 5:32 AM EDT Result Alex Garvin MD LAB BLOOD ORDERABLES Final Re sult Performing Organization Address City/[facility]/ZIP Co de Phone Number [facility] [address] [place] [address] * (ABNORMAL) CBC and Differential (06/08/2025 4:05 AM EDT) WBC Count 6.33 3.70 - 10.30 10*3/uL LAB HEMATOLOGY METHOD 06/08/2025 4:34 AM EDT [facility] RBC Count 2.78(L) 3.90 - 5.20 10*6/uL LAB HEMATOLOGY METHOD 06/08/2025 4:34 AM EDT [facility] HGB 7.3(L) 11.2 - 15.7 g/dL LAB HEMATOLOGY METHOD 06/08/2025 4:34 AM EDT [facility] HCT 26.0(L) 34.0 - 45.0 % LAB HEMATOLOGY METHOD 06/08/2025 4:34 AM EDT [facility] Platelet Count 51(L) 155 - 369 10*3/uL LAB HEMATOLOGY METHOD 06/08/2025 4:34 AM EDT [facility] MCV 94 79 - 98 fL LAB HEMATOLOGY METHOD 06/08/2025 4:34 AM EDT [facility] MCH 26.3 26.0 - 32.0 pg LAB HEMATOLOGY METHOD 06/08/2025 4:34 AM EDT [facility] MCHC 28.1(L) 30.7 - 35.5 g/dL LAB HEMATOLOGY METHOD 06/08/2025 4:34 AM EDT [facility] RDW 15.9(H) 11.5 - 14.5 % LAB HEMATOLOGY METHOD 06/08/2025 4:34 AM EDT [facility] MPV LAB HEMATOLOGY METHOD 06/08/2025 4:34 AM EDT [facility] Comment:Not Measured nRBC 0.0 <=0.0 per 100 WBCs LAB HEMATOLOGY METHOD 06/08/2025 4:34 AM EDT [facility] Differential Type Automated LAB HEMATOLOGY METHOD 06/08/2025 4:34 AM EDT [facility] Neutrophils % 82 % LAB HEMATOLOGY METHOD 06/08/2025 4:34 AM EDT [facility] Lymphocytes % 7 % LAB HEMATOLOGY METHOD 06/08/2025 4:34 AM EDT [facility] Monocytes % 7 % LAB HEMATOLOGY METHOD 06/08/2025 4:34 AM EDT [facility] Eosinophils % 3 % LAB HEMATOLOGY METHOD 06/08/2025 4:34 AM EDT [facility] Basophils % 0 % LAB HEMATOLOGY METHOD 06/08/2025 4:34 AM EDT [facility] Immature Granulocytes % 1 % LAB HEMATOLOGY METHOD 06/08/2025 4:34 AM EDT [facility] Neutrophils Absolute 5.17 1.60 - 6.10 10*3/uL LAB HEMATOLOGY METHOD 06/08/2025 4:34 AM EDT [facility] Lymphocytes Absolute 0.46(L) 1.20 - 3.90 10*3/uL LAB HEMATOLOGY METHOD 06/08/2025 4:34 AM EDT [facility] Monocytes Absolute 0.46 0.30 - 0.90 10*3/uL LAB HEMATOLOGY METHOD 06/08/2025 4:34 AM EDT [facility] Eosinophils Absolute 0.16 0.00 - 0.50 10*3/uL LAB HEMATOLOGY METHOD 06/08/2025 4:34 AM EDT [facility] Basophils Absolute 0.02 0.00 - 0.10 10*3/uL LAB HEMATOLOGY METHOD 06/08/2025 4:34 AM EDT [facility] Immature Granulocytes Absolute 0.06 0.00 - 0.06 10*3/uL LAB HEMATOLOGY METHOD 06/08/2025 4:34 AM EDT [facility] Blood Venous blood specimen / Unknown Venipuncture / Unknown 06/08/2025 4:05 AM EDT 06/08/2025 4:22 AM EDT Narrative [facility] - 06/08/2025 4:34 AM EDT Therapeutic decision making should be based on absolute values, rather than percentages. us Faiza Garvin MD LAB BLOOD ORDERABLES Final Re sult [facility] [address] [place] [address] * (ABNORMAL) Comprehensive Metabolic Panel, Plasma (06/08/2025 4:05 AM EDT) Glucose, Plasma 95 74 - 99 mg/dL 06/08/2025 4:54 AM EDT [facility] BUN, Plasma 40(H) 7 - 21 mg/dL 06/08/2025 4:54 AM EDT [facility] Creatinine, Plasma 2.83(H) 0.60 - 1.10 mg/dL 06/08/2025 4:54 AM EDT [facility] BUN/Creatinine Ratio 14 06/08/2025 4:54 AM EDT [facility] Sodium, Plasma 135(L) 136 - 145 mmol/L 06/08/2025 4:54 AM EDT [facility] Potassium, Plasma 4.7 3.6 - 4.9 mmol/L 06/08/2025 4:54 AM EDT [facility] Comment:Hemolyzed, result ma y be falsely increased. Chloride, Plasma 100 97 - 107 mmol/L 06/08/2025 4:54 AM EDT [facility] CO2, Plasma 25 22 - 29 mmol/L 06/08/2025 4:54 AM EDT [facility] Anion Gap 10 6 - 16 mmol/L 06/08/2025 4:54 AM EDT [facility] Total Calcium, Plasma 8.2(L) 8.9 - 10.2 mg/dL 06/08/2025 4:54 AM EDT [facility] Total Protein 6.0(L) 6.3 - 7.9 g/dL 06/08/2025 4:54 AM EDT [facility] Albumin, Plasma 2.8(L) 3.5 - 5.2 g/dL 06/08/2025 4:54 AM EDT [facility] AST, Plasma 28 10 - 35 U/L 06/08/2025 4:54 AM EDT [facility] Comment:Hemolyzed, result ma y be falsely increased. ALT, Plasma 6(L) 10 - 35 U/L 06/08/2025 4:54 AM EDT [facility] Alkaline Phosphatase, Plasma 162(H) 46 - 142 U/L 06/08/2025 4:54 AM EDT [facility] Total Bilirubin, Plasma 0.5 0.2 - 1.1 mg/dL 06/08/2025 4:54 AM EDT [facility] eGFRcr 19.0 mL/min/1.7 3m*2 06/08/2025 4:54 AM EDT [facility] Comment:Reported eGFRcr in m L/min/1.73m2 is based the CKD-EPI 2020 equation that does not use a race coefficient. Blood Venous blood specimen / Unknown Venipuncture / Unknown 06/08/2025 4:05 AM EDT 06/08/2025 4:11 AM EDT us Faiza Garvin MD LAB BLOOD ORDERABLES Final Re sult Performing Organization Address [facility] Co de Phone Number [facility] [address] [place] [address] * Magnesium, Plasma (06/08/2025 4:05 AM EDT) Magnesium, Plasma 2.0 1.9 - 2.4 mg/dL 06/08/2025 4:54 AM EDT [facility] Blood Venous blood specimen / Unknown Venipuncture / Unknown 06/08/2025 4:05 AM EDT 06/08/2025 4:11 AM EDT us Faiza Garvin MD LAB BLOOD ORDERABLES Final Re sult Performing Organization Address [facility] de Phone Number [facility] [address] [place] [address] * Phosphorus, Plasma (06/08/2025 4:05 AM EDT) Phosphorus, Plasma 4.0 2.5 - 4.5 mg/dL 06/08/2025 4:54 AM EDT [facility] Blood Venous blood specimen / Unknown Venipuncture / Unknown 06/08/2025 4:05 AM EDT 06/08/2025 4:11 AM EDT us Faiza Garvin MD LAB BLOOD ORDERABLES Final Re sult Performing Organization Address [facility] Co de Phone Number [facility] [address] [place] [address] * (ABNORMAL) CBC and Differential (06/07/2025 5:07 AM EDT) WBC Count 6.72 3.70 - 10.30 10*3/uL LAB HEMATOLOGY METHOD 06/07/2025 5:43 AM EDT [facility] RBC Count 2.99(L) 3.90 - 5.20 10*6/uL LAB HEMATOLOGY METHOD 06/07/2025 5:43 AM EDT [facility] HGB 7.8(L) 11.2 - 15.7 g/dL LAB HEMATOLOGY METHOD 06/07/2025 5:43 AM EDT [facility] HCT 28.4(L) 34.0 - 45.0 % LAB HEMATOLOGY METHOD 06/07/2025 5:43 AM EDT [facility] Platelet Count 43(L) 155 - 369 10*3/uL LAB HEMATOLOGY METHOD 06/07/2025 5:43 AM EDT [facility] MCV 95 79 - 98 fL LAB HEMATOLOGY METHOD 06/07/2025 5:43 AM EDT [facility] MCH 26.1 26.0 - 32.0 pg LAB HEMATOLOGY METHOD 06/07/2025 5:43 AM EDT [facility] MCHC 27.5(L) 30.7 - 35.5 g/dL LAB HEMATOLOGY METHOD 06/07/2025 5:43 AM EDT [facility] RDW 15.9(H) 11.5 - 14.5 % LAB HEMATOLOGY METHOD 06/07/2025 5:43 AM EDT [facility] MPV LAB HEMATOLOGY METHOD 06/07/2025 5:43 AM EDT [facility] Comment:Not Measured nRBC 0.0 <=0.0 per 100 WBCs LAB HEMATOLOGY METHOD 06/07/2025 5:43 AM EDT [facility] Differential Type Automated LAB HEMATOLOGY METHOD 06/07/2025 5:43 AM EDT [facility] Neutrophils % 79 % LAB HEMATOLOGY METHOD 06/07/2025 5:43 AM EDT [facility] Lymphocytes % 9 % LAB HEMATOLOGY METHOD 06/07/2025 5:43 AM EDT [facility] Monocytes % 8 % LAB HEMATOLOGY METHOD 06/07/2025 5:43 AM EDT [facility] Eosinophils % 3 % LAB HEMATOLOGY METHOD 06/07/2025 5:43 AM EDT [facility] Basophils % 0 % LAB HEMATOLOGY METHOD 06/07/2025 5:43 AM EDT [facility] Immature Granulocytes % 1 % LAB HEMATOLOGY METHOD 06/07/2025 5:43 AM EDT [facility] Neutrophils Absolute 5.35 1.60 - 6.10 10*3/uL LAB HEMATOLOGY METHOD 06/07/2025 5:43 AM EDT [facility] Lymphocytes Absolute 0.57(L) 1.20 - 3.90 10*3/uL LAB HEMATOLOGY METHOD 06/07/2025 5:43 AM EDT [facility] Monocytes Absolute 0.55 0.30 - 0.90 10*3/uL LAB HEMATOLOGY METHOD 06/07/2025 5:43 AM EDT [facility] Eosinophils Absolute 0.17 0.00 - 0.50 10*3/uL LAB HEMATOLOGY METHOD 06/07/2025 5:43 AM EDT [facility] Basophils Absolute 0.03 0.00 - 0.10 10*3/uL LAB HEMATOLOGY METHOD 06/07/2025 5:43 AM EDT [facility] Immature Granulocytes Absolute 0.05 0.00 - 0.06 10*3/uL LAB HEMATOLOGY METHOD 06/07/2025 5:43 AM EDT [facility] Blood Venous blood specimen / Unknown Venipuncture / Unknown 06/07/2025 5:07 AM EDT 06/07/2025 5:27 AM EDT Narrative [facility] - 06/07/2025 5:43 AM EDT Therapeutic decision making should be based on absolute values, rather than percentages. us Faiza Garvin MD LAB BLOOD ORDERABLES Final Re sult [facility] [address] [place] [address] * (ABNORMAL) Comprehensive Metabolic Panel, Plasma (06/07/2025 5:07 AM EDT) Glucose, Plasma 90 74 - 99 mg/dL 06/07/2025 5:46 AM EDT [facility] BUN, Plasma 64(H) 7 - 21 mg/dL 06/07/2025 5:46 AM EDT [facility] Creatinine, Plasma 4.03(H) 0.60 - 1.10 mg/dL 06/07/2025 5:46 AM EDT [facility] BUN/Creatinine Ratio 16 06/07/2025 5:46 AM EDT [facility] Sodium, Plasma 139 136 - 145 mmol/L 06/07/2025 5:46 AM EDT [facility] Potassium, Plasma 4.4 3.6 - 4.9 mmol/L 06/07/2025 5:46 AM EDT [facility] Chloride, Plasma 99 97 - 107 mmol/L 06/07/2025 5:46 AM EDT [facility] CO2, Plasma 24 22 - 29 mmol/L 06/07/2025 5:46 AM EDT [facility] Anion Gap 16 6 - 16 mmol/L 06/07/2025 5:46 AM EDT [facility] Total Calcium, Plasma 8.4(L) 8.9 - 10.2 mg/dL 06/07/2025 5:46 AM EDT [facility] Total Protein 6.0(L) 6.3 - 7.9 g/dL 06/07/2025 5:46 AM EDT [facility] Albumin, Plasma 3.1(L) 3.5 - 5.2 g/dL 06/07/2025 5:46 AM EDT [facility] AST, Plasma 12 10 - 35 U/L 06/07/2025 5:46 AM EDT [facility] ALT, Plasma <5(L) 10 - 35 U/L 06/07/2025 5:46 AM EDT [facility] Alkaline Phosphatase, Plasma 173(H) 46 - 142 U/L 06/07/2025 5:46 AM EDT [facility] Total Bilirubin, Plasma 0.4 0.2 - 1.1 mg/dL 06/07/2025 5:46 AM EDT [facility] eGFRcr 12.4 mL/min/1.7 3m*2 06/07/2025 5:46 AM EDT [facility] Comment:Reported eGFRcr in m L/min/1.73m2 is based the CKD-EPI 2020 equation that does not use a race coefficient. Blood Venous blood specimen / Unknown Venipuncture / Unknown 06/07/2025 5:07 AM EDT 06/07/2025 5:18 AM EDT us Faiza Garvin MD LAB BLOOD ORDERABLES Final Re sult Performing Organization Address [facility]/ZIP Co de Phone Number [facility] [address] [place] [address] * Magnesium, Plasma (06/07/2025 5:07 AM EDT) Pathologist [facility] Magnesium, Plasma 2.2 1.9 - 2.4 mg/dL 06/07/2025 5:46 AM EDT [facility] Blood Venous blood specimen / Unknown Venipuncture / Unknown 06/07/2025 5:07 AM EDT 06/07/2025 5:18 AM EDT us Faiza Garvin MD LAB BLOOD ORDERABLES Final Re sult Performing Organization Address [facility]/ZIP Co de Phone Number [facility] [address] [place] [address] * (ABNORMAL) Phosphorus, Plasma (06/07/2025 5:07 AM EDT) [facility] Phosphorus, Plasma 5.1(H) 2.5 - 4.5 mg/dL 06/07/2025 5:46 AM EDT [facility] Blood Venous blood specimen / Unknown Venipuncture / Unknown 06/07/2025 5:07 AM EDT 06/07/2025 5:18 AM EDT us Faiza Garvin MD LAB BLOOD ORDERABLES Final Re sult Performing Organization Address City/[facility]/ZIP Co de Phone Number [facility] [address] [place] [address] * (ABNORMAL) CBC and Differential (06/06/2025 2:49 AM EDT) [facility] WBC Count 6.74 3.70 - 10.30 10*3/uL LAB HEMATOLOGY METHOD 06/06/2025 3:30 AM EDT [facility] RBC Count 2.72(L) 3.90 - 5.20 10*6/uL LAB HEMATOLOGY METHOD 06/06/2025 3:30 AM EDT [facility] HGB 7.4(L) 11.2 - 15.7 g/dL LAB HEMATOLOGY METHOD 06/06/2025 3:30 AM EDT [facility] HCT 26.2(L) 34.0 - 45.0 % LAB HEMATOLOGY METHOD 06/06/2025 3:30 AM EDT [facility] Platelet Count 45(L) 155 - 369 10*3/uL LAB HEMATOLOGY METHOD 06/06/2025 3:30 AM EDT [facility] MCV 96 79 - 98 fL LAB HEMATOLOGY METHOD 06/06/2025 3:30 AM EDT [facility] MCH 27.2 26.0 - 32.0 pg LAB HEMATOLOGY METHOD 06/06/2025 3:30 AM EDT [facility] MCHC 28.2(L) 30.7 - 35.5 g/dL LAB HEMATOLOGY METHOD 06/06/2025 3:30 AM EDT [facility] RDW 15.8(H) 11.5 - 14.5 % LAB HEMATOLOGY METHOD 06/06/2025 3:30 AM EDT [facility] MPV LAB HEMATOLOGY METHOD 06/06/2025 3:30 AM EDT [facility] Comment:Not Measured nRBC 0.0 <=0.0 per 100 WBCs LAB HEMATOLOGY METHOD 06/06/2025 3:30 AM EDT [facility] Differential Type Automated LAB HEMATOLOGY METHOD 06/06/2025 3:30 AM EDT [facility] Neutrophils % 79 % LAB HEMATOLOGY METHOD 06/06/2025 3:30 AM EDT [facility] Lymphocytes % 9 % LAB HEMATOLOGY METHOD 06/06/2025 3:30 AM EDT [facility] Monocytes % 9 % LAB HEMATOLOGY METHOD 06/06/2025 3:30 AM EDT [facility] Eosinophils % 2 % LAB HEMATOLOGY METHOD 06/06/2025 3:30 AM EDT [facility] Basophils % 0 % LAB HEMATOLOGY METHOD 06/06/2025 3:30 AM EDT [facility] Immature Granulocytes % 1 % LAB HEMATOLOGY METHOD 06/06/2025 3:30 AM EDT [facility] Neutrophils Absolute 5.31 1.60 - 6.10 10*3/uL LAB HEMATOLOGY METHOD 06/06/2025 3:30 AM EDT [facility] Lymphocytes Absolute 0.63(L) 1.20 - 3.90 10*3/uL LAB HEMATOLOGY METHOD 06/06/2025 3:30 AM EDT [facility] Monocytes Absolute 0.57 0.30 - 0.90 10*3/uL LAB HEMATOLOGY METHOD 06/06/2025 3:30 AM EDT [facility] Eosinophils Absolute 0.15 0.00 - 0.50 10*3/uL LAB HEMATOLOGY METHOD 06/06/2025 3:30 AM EDT [facility] Basophils Absolute 0.02 0.00 - 0.10 10*3/uL LAB HEMATOLOGY METHOD 06/06/2025 3:30 AM EDT [facility] Immature Granulocytes Absolute 0.06 0.00 - 0.06 10*3/uL LAB HEMATOLOGY METHOD 06/06/2025 3:30 AM EDT [facility] Blood Venous blood specimen / Unknown Venipuncture / Unknown 06/06/2025 2:49 AM EDT 06/06/2025 3:08 AM EDT Narrative [facility] - 06/06/2025 3:30 AM EDT Therapeutic decision making should be based on absolute values, rather than percentages. us Faiza Garvin MD LAB BLOOD ORDERABLES Final Re sult [facility] [address] [place] [address] * (ABNORMAL) Comprehensive Metabolic Panel, Plasma (06/06/2025 2:49 AM EDT) Glucose, Plasma 134(H) 74 - 99 mg/dL 06/06/2025 3:35 AM EDT [facility] BUN, Plasma 58(H) 7 - 21 mg/dL 06/06/2025 3:35 AM EDT [facility] Creatinine, Plasma 3.74(H) 0.60 - 1.10 mg/dL 06/06/2025 3:35 AM EDT [facility] BUN/Creatinine Ratio 16 06/06/2025 3:35 AM EDT [facility] Sodium, Plasma 137 136 - 145 mmol/L 06/06/2025 3:35 AM EDT [facility] Potassium, Plasma 4.0 3.6 - 4.9 mmol/L 06/06/2025 3:35 AM EDT [facility] Chloride, Plasma 97 97 - 107 mmol/L 06/06/2025 3:35 AM EDT [facility] CO2, Plasma 24 22 - 29 mmol/L 06/06/2025 3:35 AM EDT [facility] Anion Gap 16 6 - 16 mmol/L 06/06/2025 3:35 AM EDT [facility] Total Calcium, Plasma 8.3(L) 8.9 - 10.2 mg/dL 06/06/2025 3:35 AM EDT [facility] Total Protein 5.8(L) 6.3 - 7.9 g/dL 06/06/2025 3:35 AM EDT [facility] Albumin, Plasma 2.9(L) 3.5 - 5.2 g/dL 06/06/2025 3:35 AM EDT [facility] AST, Plasma 13 10 - 35 U/L 06/06/2025 3:35 AM EDT [facility] ALT, Plasma <5(L) 10 - 35 U/L 06/06/2025 3:35 AM EDT [facility] Alkaline Phosphatase, Plasma 171(H) 46 - 142 U/L 06/06/2025 3:35 AM EDT [facility] Total Bilirubin, Plasma 0.3 0.2 - 1.1 mg/dL 06/06/2025 3:35 AM EDT [facility] eGFRcr 13.6 mL/min/1.7 3m*2 06/06/2025 3:35 AM EDT [facility] Comment:Reported eGFRcr in m L/min/1.73m2 is based the CKD-EPI 2020 equation that does not use a race coefficient. Blood Venous blood specimen / Unknown Venipuncture / Unknown 06/06/2025 2:49 AM EDT 06/06/2025 3:08 AM EDT us Faiza Garvin MD LAB BLOOD ORDERABLES Final Re sult [facility] [address] [place] [address] * Magnesium, Plasma (06/06/2025 2:49 AM EDT) Magnesium, Plasma 2.2 1.9 - 2.4 mg/dL 06/06/2025 3:35 AM EDT [facility] Blood Venous blood specimen / Unknown Venipuncture / Unknown 06/06/2025 2:49 AM EDT 06/06/2025 3:08 AM EDT us Faiza Gavrin MD LAB BLOOD ORDERABLES Final Re sult Performing Organization Address [facility] Co de Phone Number [facility] [address] [place] [address] * (ABNORMAL) Phosphorus, Plasma (06/06/2025 2:49 AM EDT) [facility] Phosphorus, Plasma 4.7(H) 2.5 - 4.5 mg/dL 06/06/2025 3:35 AM EDT [facility] Blood Venous blood specimen / Unknown Venipuncture / Unknown 06/06/2025 2:49 AM EDT 06/06/2025 3:08 AM EDT us Faiza Garvin MD LAB BLOOD ORDERABLES Final Re sult Performing Organization Address [facility] [place] [address] * (ABNORMAL) POCT glucose meter (06/05/2025 11:54 AM EDT) [facility] POCT Glucose 127(H) 74 - 99 mg/dL [...] for testing. Comment 06/05/2025 11:56 AM EDT [facility] [employer] ID Milagros Lopez 06/05/2025 11:56 AM EDT [facility] Device ID [id number] 06/05/2025 11:56 AM EDT [facility] Specimen Type POC Capillary 06/05/2025 11:56 AM EDT [facility] Blood Capillary blood specimen / Unknown 06/05/2025 11:54 AM EDT 06/05/2025 11:56 AM EDT Mayra Rogers MD LAB POINT OF CARE TE ST DOCKED DEVICE UNSOLICITED RESULTS Final Result Performing Organization Address City/[facility] Co de Phone Number [facility] [address] [place] [address] * (ABNORMAL) POCT glucose meter (06/05/2025 10:42 AM EDT) POCT Glucose 102(H) 74 - 99 mg/dL [...] Comment 06/05/2025 10:44 AM EDT [facility] [employer] ID Milagros Lopez 06/05/2025 10:44 AM EDT [facility] Device ID [id number] 06/05/2025 10:44 AM EDT [facility] Specimen Type POC Capillary 06/05/2025 10:44 AM EDT [facility] Blood Capillary blood specimen / Unknown 06/05/2025 10:42 AM EDT 06/05/2025 10:44 AM EDT Mayra Rogers MD LAB POINT OF CARE TE ST DOCKED DEVICE UNSOLICITED RESULTS Final Result Performing Organization Address City/[facility] Co de Phone Number [facility] [address] [place] [address] * POCT glucose meter (06/05/2025 9:42 AM EDT) POCT Glucose 89 74 - 99 mg/dL [...] Comment 06/05/2025 9:44 AM EDT [facility] Straw [employer] ID Milagros Lopez 06/05/2025 9:44 AM EDT [facility] Device ID [id number] 06/05/2025 9:44 AM EDT [facility] Specimen Type POC Capillary 06/05/2025 9:44 AM EDT [facility] Blood Capillary blood specimen / Unknown 06/05/2025 9:42 AM EDT 06/05/2025 9:44 AM EDT us Mayra Rogers MD LAB POINT OF CARE TE ST DOCKED DEVICE UNSOLICITED RESULTS Final Result Performing Organization Address City/State/[facility] Co de Phone Number [facility] [address] [place] [address] * POCT glucose meter (06/05/2025 9:06 AM EDT) [facility] POCT Glucose 87 74 - 99 mg/dL [...] for testing. Comment 06/05/2025 9:08 AM EDT [facility] Straw [employer] ID Milagros Lopez 06/05/2025 9:08 AM EDT [facility] Device ID [id number] 06/05/2025 9:08 AM EDT [facility] Specimen Type POC Capillary 06/05/2025 9:08 AM EDT [facility] Blood Capillary blood specimen / Unknown 06/05/2025 9:06 AM EDT 06/05/2025 9:08 AM EDT us Mayra Rogers MD LAB POINT OF CARE TE ST DOCKED DEVICE UNSOLICITED RESULTS Final Result [facility] [address] [place] [address] * (ABNORMAL) POCT glucose meter (06/05/2025 4:57 AM EDT) POCT Glucose 105(H) 74 - 99 mg/dL 06/05/2025 4:59 AM EDT [facility] Comment:Accuracy of a [...] for testing. Comment 06/05/2025 4:59 AM EDT [facility] Straw [employer] ID Florence Phelan 06/05/2025 4:59 AM EDT [facility] Device ID [id number] 06/05/2025 4:59 AM EDT [facility] Specimen Type POC Capillary 06/05/2025 4:59 AM EDT [facility] Blood Capillary blood specimen / Unknown 06/05/2025 4:57 AM EDT 06/05/2025 4:59 AM EDT Mayra Rogers MD LAB POINT OF CARE TE ST DOCKED DEVICE UNSOLICITED RESULTS Final Result [facility] [address] [place] [address] * (ABNORMAL) POCT glucose meter (06/05/2025 3:59 AM EDT) Pathologist [facility] POCT Glucose 61(L) 74 - 99 mg/dL [...] Comment 06/05/2025 4:01 AM EDT [facility] Straw [employer] ID Florence Phelan 06/05/2025 4:01 AM EDT [facility] Device ID [id number] 06/05/2025 4:01 AM EDT [facility] Specimen Type POC Capillary 06/05/2025 4:01 AM EDT [facility] Blood Capillary blood specimen / Unknown 06/05/2025 3:59 AM EDT 06/05/2025 4:01 AM EDT us Mayra Rogers MD LAB POINT OF CARE TE ST DOCKED DEVICE UNSOLICITED RESULTS Final Result [facility] [address] [place] [address] * (ABNORMAL) CBC and Differential (06/05/2025 2:21 AM EDT) WBC Count 8.76 3.70 - 10.30 10*3/uL LAB HEMATOLOGY METHOD 06/05/2025 2:52 AM EDT [facility] RBC Count 3.00(L) 3.90 - 5.20 10*6/uL LAB HEMATOLOGY METHOD 06/05/2025 2:52 AM EDT [facility] HGB 8.0(L) 11.2 - 15.7 g/dL LAB HEMATOLOGY METHOD 06/05/2025 2:52 AM EDT [facility] HCT 28.8(L) 34.0 - 45.0 % LAB HEMATOLOGY METHOD 06/05/2025 2:52 AM EDT [facility] Platelet Count 42(L) 155 - 369 10*3/uL LAB HEMATOLOGY METHOD 06/05/2025 2:52 AM EDT [facility] MCV 96 79 - 98 fL LAB HEMATOLOGY METHOD 06/05/2025 2:52 AM EDT [facility] MCH 26.7 26.0 - 32.0 pg LAB HEMATOLOGY METHOD 06/05/2025 2:52 AM EDT [facility] MCHC 27.8(L) 30.7 - 35.5 g/dL LAB HEMATOLOGY METHOD 06/05/2025 2:52 AM EDT [facility] RDW 15.8(H) 11.5 - 14.5 % LAB HEMATOLOGY METHOD 06/05/2025 2:52 AM EDT [facility] MPV LAB HEMATOLOGY METHOD 06/05/2025 2:52 AM EDT [facility] Comment:Not Measured nRBC 0.3(H) <=0.0 per 100 WBCs LAB HEMATOLOGY METHOD 06/05/2025 2:52 AM EDT [facility] Differential Type Automated LAB HEMATOLOGY METHOD 06/05/2025 2:52 AM EDT [facility] Neutrophils % 86 % LAB HEMATOLOGY METHOD 06/05/2025 2:52 AM EDT [facility] Lymphocytes % 6 % LAB HEMATOLOGY METHOD 06/05/2025 2:52 AM EDT [facility] Monocytes % 5 % LAB HEMATOLOGY METHOD 06/05/2025 2:52 AM EDT [facility] Eosinophils % 1 % LAB HEMATOLOGY METHOD 06/05/2025 2:52 AM EDT [facility] Basophils % 0 % LAB HEMATOLOGY METHOD 06/05/2025 2:52 AM EDT [facility] Immature Granulocytes % 2 % LAB HEMATOLOGY METHOD 06/05/2025 2:52 AM EDT [facility] Neutrophils Absolute 7.57(H) 1.60 - 6.10 10*3/uL LAB HEMATOLOGY METHOD 06/05/2025 2:52 AM EDT [facility] Lymphocytes Absolute 0.50(L) 1.20 - 3.90 10*3/uL LAB HEMATOLOGY METHOD 06/05/2025 2:52 AM EDT [facility] Monocytes Absolute 0.45 0.30 - 0.90 10*3/uL LAB HEMATOLOGY METHOD 06/05/2025 2:52 AM EDT [facility] Eosinophils Absolute 0.07 0.00 - 0.50 10*3/uL LAB HEMATOLOGY METHOD 06/05/2025 2:52 AM EDT [facility] Basophils Absolute 0.03 0.00 - 0.10 10*3/uL LAB HEMATOLOGY METHOD 06/05/2025 2:52 AM EDT [facility] Immature Granulocytes Absolute 0.14(H) 0.00 - 0.06 10*3/uL LAB HEMATOLOGY METHOD 06/05/2025 2:52 AM EDT [facility] Blood Venous blood specimen / Unknown Venipuncture / Unknown 06/05/2025 2:21 AM EDT 06/05/2025 2:36 AM EDT Narrative [facility] - 06/05/2025 2:52 AM EDT Therapeutic decision making should be based on absolute values, rather than percentages. us Faiza Garvin MD LAB BLOOD ORDERABLES Final Re sult [facility] [address] [place] [address] * (ABNORMAL) Comprehensive Metabolic Panel, Plasma (06/05/2025 2:21 AM EDT) Glucose, Plasma 66(L) 74 - 99 mg/dL 06/05/2025 3:04 AM EDT [facility] BUN, Plasma 47(H) 7 - 21 mg/dL 06/05/2025 3:04 AM EDT [facility] Creatinine, Plasma 3.34(H) 0.60 - 1.10 mg/dL 06/05/2025 3:04 AM EDT [facility] BUN/Creatinine Ratio 14 06/05/2025 3:04 AM EDT [facility] Sodium, Plasma 139 136 - 145 mmol/L 06/05/2025 3:04 AM EDT [facility] Potassium, Plasma 3.9 3.6 - 4.9 mmol/L 06/05/2025 3:04 AM EDT [facility] Chloride, Plasma 98 97 - 107 mmol/L 06/05/2025 3:04 AM EDT [facility] CO2, Plasma 23 22 - 29 mmol/L 06/05/2025 3:04 AM EDT [facility] Anion Gap 18(H) 6 - 16 mmol/L 06/05/2025 3:04 AM EDT [facility] Total Calcium, Plasma 8.0(L) 8.9 - 10.2 mg/dL 06/05/2025 3:04 AM EDT [facility] Total Protein 6.1(L) 6.3 - 7.9 g/dL 06/05/2025 3:04 AM EDT [facility] Albumin, Plasma 3.2(L) 3.5 - 5.2 g/dL 06/05/2025 3:04 AM EDT [facility] AST, Plasma 13 10 - 35 U/L 06/05/2025 3:04 AM EDT [facility] ALT, Plasma <5(L) 10 - 35 U/L 06/05/2025 3:04 AM EDT [facility] Alkaline Phosphatase, Plasma 191(H) 46 - 142 U/L 06/05/2025 3:04 AM EDT [facility] Total Bilirubin, Plasma 0.4 0.2 - 1.1 mg/dL 06/05/2025 3:04 AM EDT [facility] eGFRcr 15.6 mL/min/1.7 3m*2 06/05/2025 3:04 AM EDT [facility] Comment:Reported eGFRcr in m L/min/1.73m2 is based the CKD-EPI 2020 equation that does not use a race coefficient. Blood Venous blood specimen / Unknown Venipuncture / Unknown 06/05/2025 2:21 AM EDT 06/05/2025 2:35 AM EDT Faiza Garvin MD LAB BLOOD ORDERABLES Final Re sult Performing Organization Address City/[facility]/ZIP Co de Phone Number [facility] [address] [place] [address] * Magnesium, Plasma (06/05/2025 2:21 AM EDT) Magnesium, Plasma 2.1 1.9 - 2.4 mg/dL 06/05/2025 3:04 AM EDT [facility] Blood Venous blood specimen / Unknown Venipuncture / Unknown 06/05/2025 2:21 AM EDT 06/05/2025 2:35 AM EDT Faiza Garvin MD LAB BLOOD ORDERABLES Final Re sult [facility] [address] [place] [address] * Phosphorus, Plasma (06/05/2025 2:21 AM EDT) Phosphorus, Plasma 4.2 2.5 - 4.5 mg/dL 06/05/2025 3:04 AM EDT [facility] Blood Venous blood specimen / Unknown Venipuncture / Unknown 06/05/2025 2:21 AM EDT 06/05/2025 2:35 AM EDT us Faiza Garvin MD LAB BLOOD ORDERABLES Final Re sult Performing Organization Address [facility] [place] [address] * Acute Hepatitis Panel (06/05/2025 2:21 AM EDT) [facility] Hepatitis B Surf Antigen Negative Negative 06/05/2025 4:43 AM EDT [facility] Hepatitis C Antibody Negative Negative 06/05/2025 4:43 AM EDT [facility] Hepatitis A Antibody IgM Negative Negative 06/05/2025 4:43 AM EDT [facility] Hepatitis B Core Antibody IgM Negative Negative 06/05/2025 4:43 AM EDT [facility] Blood Venous blood specimen / Unknown Venipuncture / Unknown 06/05/2025 2:21 AM EDT 06/05/2025 2:35 AM EDT us Mayra Rogers MD LAB BLOOD ORDERABLES Final Resul t Performing Organization Address [facility] Phone Number [facility] [address] [place] [address] * Hepatitis B Surface Antibody, Quantitative (06/05/2025 2:21 AM EDT) [facility] Hepatitis B Surface Antibody, Quantitative <8.00 NonReactiv e: <8, Grayzone: 8 - <12, Reactive: >= 12 mIU/mL 06/05/2025 5:18 AM EDT [facility] Comment: Nonreactive. Individual is considered not immune to HBV infection. Blood Venous blood specimen / Unknown Venipuncture / Unknown 06/05/2025 2:21 AM EDT 06/05/2025 2:35 AM EDT us Mayra Rogers MD LAB BLOOD ORDERABLES Final Resul t [facility] [address] [place] [address] * IR Angiogram ArterioVenous Shunt (06/04/2025 2:31 [...] EDT CLINICAL INDICATION: Low flow AVF TECHNIQUE: It Security Specialist: Dr. Ferris Secondary Straw Baler: None Rad Dose: 3 mGy = Procedure: [...] over a guide wire for a 4 Salvadorean micropuncture sheath. The micropuncture sheath was exchanged for a 6 Salvadorean vascular sheath. Via the sheath, A stiff [...] a 7 mm x 4 cm conquest ASSISTANT ENGINEER balloon with acceptable technical result. Digital subtraction [...] 06/04/2025 CLINICAL INDICATION: Low flow AVF TECHNIQUE: It Security Specialist: Dr. Ferris Secondary Straw Baler: None Rad Dose: 3 mGy = Procedure: [...] exchangedover a guide wire for a 4 Salvadorean micropuncture sheath. The micropuncturesheath was exchanged for a 6 Salvadorean vascular sheath. Via the sheath, [place] glide [...] a 7 mm x 4 cm conquest ASSISTANT ENGINEER balloon with acceptable technical result.Digital subtraction angiography [...] LAB HEMATOLOGY METHOD 06/04/2025 3:34 AM EDT [facility] RBC Count 2.97(L) 3.90 - 5.20 10*6/uL LAB HEMATOLOGY METHOD 06/04/2025 3:34 AM EDT [facility] HGB 7.9(L) 11.2 - 15.7 g/dL LAB HEMATOLOGY METHOD 06/04/2025 3:34 AM EDT [facility] HCT 28.4(L) 34.0 - 45.0 % LAB HEMATOLOGY METHOD 06/04/2025 3:34 AM EDT [facility] Platelet Count 42(L) 155 - 369 10*3/uL LAB HEMATOLOGY METHOD 06/04/2025 3:34 AM EDT [facility] MCV 96 79 - 98 fL LAB HEMATOLOGY METHOD 06/04/2025 3:34 AM EDT [facility] MCH 26.6 26.0 - 32.0 pg LAB HEMATOLOGY METHOD 06/04/2025 3:34 AM EDT [facility] MCHC 27.8(L) 30.7 - 35.5 g/dL LAB HEMATOLOGY METHOD 06/04/2025 3:34 AM EDT [facility] RDW 15.8(H) 11.5 - 14.5 % LAB HEMATOLOGY METHOD 06/04/2025 3:34 AM EDT [facility] MPV 13.5(H) 8.8 - 12.5 fL LAB HEMATOLOGY METHOD 06/04/2025 3:34 AM EDT [facility] nRBC 0.4(H) <=0.0 per 100 WBCs LAB HEMATOLOGY METHOD 06/04/2025 3:34 AM EDT [facility] Differential Type Automated LAB HEMATOLOGY METHOD 06/04/2025 3:34 AM EDT [facility] Neutrophils % 83 % LAB HEMATOLOGY METHOD 06/04/2025 3:34 AM EDT [facility] Lymphocytes % 8 % LAB HEMATOLOGY METHOD 06/04/2025 3:34 AM EDT [facility] Monocytes % 6 % LAB HEMATOLOGY METHOD 06/04/2025 3:34 AM EDT [facility] Eosinophils % 2 % LAB HEMATOLOGY METHOD 06/04/2025 3:34 AM EDT [facility] Basophils % 0 % LAB HEMATOLOGY METHOD 06/04/2025 3:34 AM EDT [facility] Immature Granulocytes % 1 % LAB HEMATOLOGY METHOD 06/04/2025 3:34 AM EDT [facility] Neutrophils Absolute 6.55(H) 1.60 - 6.10 10*3/uL LAB HEMATOLOGY METHOD 06/04/2025 3:34 AM EDT [facility] Lymphocytes Absolute 0.61(L) 1.20 - 3.90 10*3/uL LAB HEMATOLOGY METHOD 06/04/2025 3:34 AM EDT [facility] Monocytes Absolute 0.48 0.30 - 0.90 10*3/uL LAB HEMATOLOGY METHOD 06/04/2025 3:34 AM EDT [facility] Eosinophils Absolute 0.16 0.00 - 0.50 10*3/uL LAB HEMATOLOGY METHOD 06/04/2025 3:34 AM EDT [facility] Basophils Absolute 0.03 0.00 - 0.10 10*3/uL LAB HEMATOLOGY METHOD 06/04/2025 3:34 AM EDT [facility] Immature Granulocytes Absolute 0.07(H) 0.00 - 0.06 10*3/uL LAB HEMATOLOGY METHOD 06/04/2025 3:34 AM EDT [facility] Blood Venous blood specimen / Unknown Venipuncture / Unknown 06/04/2025 2:56 AM EDT 06/04/2025 3:24 AM EDT Narrative [facility] - 06/04/2025 3:34 AM EDT Therapeutic decision making should be based on absolute values, rather than percentages. us Faiza Garvin MD LAB BLOOD ORDERABLES Final Re sult [facility] [address] [place] [address] * (ABNORMAL) Comprehensive Metabolic Panel, Plasma (06/04/2025 2:56 AM EDT) Glucose, Plasma 79 74 - 99 mg/dL 06/04/2025 3:50 AM EDT [facility] BUN, Plasma 75(H) 7 - 21 mg/dL 06/04/2025 3:50 AM EDT [facility] Creatinine, Plasma 4.69(H) 0.60 - 1.10 mg/dL 06/04/2025 3:50 AM EDT [facility] BUN/Creatinine Ratio 16 06/04/2025 3:50 AM EDT [facility] Sodium, Plasma 137 136 - 145 mmol/L 06/04/2025 3:50 AM EDT [facility] Potassium, Plasma 3.6 3.6 - 4.9 mmol/L 06/04/2025 3:50 AM EDT [facility] Chloride, Plasma 96(L) 97 - 107 mmol/L 06/04/2025 3:50 AM EDT [facility] CO2, Plasma 23 22 - 29 mmol/L 06/04/2025 3:50 AM EDT [facility] Anion Gap 18(H) 6 - 16 mmol/L 06/04/2025 3:50 AM EDT [facility] Total Calcium, Plasma 8.1(L) 8.9 - 10.2 mg/dL 06/04/2025 3:50 AM EDT [facility] Total Protein 6.0(L) 6.3 - 7.9 g/dL 06/04/2025 3:50 AM EDT [facility] Albumin, Plasma 3.1(L) 3.5 - 5.2 g/dL 06/04/2025 3:50 AM EDT [facility] AST, Plasma 12 10 - 35 U/L 06/04/2025 3:50 AM EDT [facility] ALT, Plasma <5(L) 10 - 35 U/L 06/04/2025 3:50 AM EDT [facility] Alkaline Phosphatase, Plasma 189(H) 46 - 142 U/L 06/04/2025 3:50 AM EDT [facility] Total Bilirubin, Plasma 0.3 0.2 - 1.1 mg/dL 06/04/2025 3:50 AM EDT [facility] eGFRcr 10.4 mL/min/1.7 3m*2 06/04/2025 3:50 AM EDT [facility] Comment:Reported eGFRcr in m L/min/1.73m2 is based the CKD-EPI 2020 equation that does not use a race coefficient. Blood Venous blood specimen / Unknown Venipuncture / Unknown 06/04/2025 2:56 AM EDT 06/04/2025 3:24 AM EDT Faiza Garvin MD LAB BLOOD ORDERABLES Final Re sult Performing Organization Address City/[facility]/ZIP Co de Phone Number [facility] [address] [place] [address] * Magnesium, Plasma (06/04/2025 2:56 AM EDT) Magnesium, Plasma 2.3 1.9 - 2.4 mg/dL 06/04/2025 3:50 AM EDT [facility] Blood Venous blood specimen / Unknown Venipuncture / Unknown 06/04/2025 2:56 AM EDT 06/04/2025 3:24 AM EDT Faiza Garvin MD LAB BLOOD ORDERABLES Final Re sult [facility] [address] [place] [address] * (ABNORMAL) Phosphorus, Plasma (06/04/2025 2:56 AM EDT) Phosphorus, Plasma 5.7(H) 2.5 - 4.5 mg/dL 06/04/2025 3:50 AM EDT [facility] Blood Venous blood specimen / Unknown Venipuncture / Unknown 06/04/2025 2:56 AM EDT 06/04/2025 3:24 AM EDT us Faiza Garvin MD LAB BLOOD ORDERABLES Final Re sult Performing Organization Address [facility]/ZIP Co de Phone Number [facility] [address] [place] [address] * (ABNORMAL) Hemoglobin and Hematocrit, Blood (06/03/2025 12:43 PM EDT) [facility] HGB 7.9(L) 11.2 - 15.7 g/dL LAB HEMATOLOGY METHOD 06/03/2025 2:01 PM EDT [facility] HCT 28.6(L) 34.0 - 45.0 % LAB HEMATOLOGY METHOD 06/03/2025 2:01 PM EDT [facility] Blood Venous blood specimen / Unknown Venipuncture / Unknown 06/03/2025 12:43 PM EDT 06/03/2025 2:01 PM EDT us Mayra Rogers MD LAB BLOOD ORDERABLES Final Resul t Performing Organization Address [facility] de Phone Number [facility] [address] [place] [address] * (ABNORMAL) CBC and Differential (06/03/2025 4:51 AM EDT) [facility] WBC Count 7.45 3.70 - 10.30 10*3/uL LAB HEMATOLOGY METHOD 06/03/2025 5:55 AM EDT [facility] RBC Count 2.97(L) 3.90 - 5.20 10*6/uL LAB HEMATOLOGY METHOD 06/03/2025 5:55 AM EDT [facility] HGB 8.1(L) 11.2 - 15.7 g/dL LAB HEMATOLOGY METHOD 06/03/2025 5:55 AM EDT [facility] HCT 28.7(L) 34.0 - 45.0 % LAB HEMATOLOGY METHOD 06/03/2025 5:55 AM EDT [facility] Platelet Count 44(L) 155 - 369 10*3/uL LAB HEMATOLOGY METHOD 06/03/2025 5:55 AM EDT [facility] MCV 97 79 - 98 fL LAB HEMATOLOGY METHOD 06/03/2025 5:55 AM EDT [facility] MCH 27.3 26.0 - 32.0 pg LAB HEMATOLOGY METHOD 06/03/2025 5:55 AM EDT [facility] MCHC 28.2(L) 30.7 - 35.5 g/dL LAB HEMATOLOGY METHOD 06/03/2025 5:55 AM EDT [facility] RDW 15.8(H) 11.5 - 14.5 % LAB HEMATOLOGY METHOD 06/03/2025 5:55 AM EDT [facility] MPV LAB HEMATOLOGY METHOD 06/03/2025 5:55 AM EDT [facility] Comment:Not Measured nRBC 0.4(H) <=0.0 per 100 WBCs LAB HEMATOLOGY METHOD 06/03/2025 5:55 AM EDT [facility] Differential Type Automated LAB HEMATOLOGY METHOD 06/03/2025 5:55 AM EDT [facility] Neutrophils % 83 % LAB HEMATOLOGY METHOD 06/03/2025 5:55 AM EDT [facility] Lymphocytes % 8 % LAB HEMATOLOGY METHOD 06/03/2025 5:55 AM EDT [facility] Monocytes % 6 % LAB HEMATOLOGY METHOD 06/03/2025 5:55 AM EDT [facility] Eosinophils % 2 % LAB HEMATOLOGY METHOD 06/03/2025 5:55 AM EDT [facility] Basophils % 0 % LAB HEMATOLOGY METHOD 06/03/2025 5:55 AM EDT [facility] Immature Granulocytes % 1 % LAB HEMATOLOGY METHOD 06/03/2025 5:55 AM EDT [facility] Neutrophils Absolute 6.12(H) 1.60 - 6.10 10*3/uL LAB HEMATOLOGY METHOD 06/03/2025 5:55 AM EDT [facility] Lymphocytes Absolute 0.60(L) 1.20 - 3.90 10*3/uL LAB HEMATOLOGY METHOD 06/03/2025 5:55 AM EDT [facility] Monocytes Absolute 0.46 0.30 - 0.90 10*3/uL LAB HEMATOLOGY METHOD 06/03/2025 5:55 AM EDT [facility] Eosinophils Absolute 0.17 0.00 - 0.50 10*3/uL LAB HEMATOLOGY METHOD 06/03/2025 5:55 AM EDT [facility] Basophils Absolute 0.03 0.00 - 0.10 10*3/uL LAB HEMATOLOGY METHOD 06/03/2025 5:55 AM EDT [facility] Immature Granulocytes Absolute 0.07(H) 0.00 - 0.06 10*3/uL LAB HEMATOLOGY METHOD 06/03/2025 5:55 AM EDT [facility] Blood Venous blood specimen / Unknown Venipuncture / Unknown 06/03/2025 4:51 AM EDT 06/03/2025 5:15 AM EDT Narrative [facility] - 06/03/2025 5:55 AM EDT Therapeutic decision making should be based on absolute values, rather than percentages. us Faiza Garvin MD LAB BLOOD ORDERABLES Final Re sult [facility] [address] [place] [address] * (ABNORMAL) Comprehensive Metabolic Panel, Plasma (06/03/2025 4:51 AM EDT) Glucose, Plasma 105(H) 74 - 99 mg/dL 06/03/2025 5:50 AM EDT [facility] BUN, Plasma 66(H) 7 - 21 mg/dL 06/03/2025 5:50 AM EDT [facility] Creatinine, Plasma 4.30(H) 0.60 - 1.10 mg/dL 06/03/2025 5:50 AM EDT [facility] BUN/Creatinine Ratio 15 06/03/2025 5:50 AM EDT [facility] Sodium, Plasma 138 136 - 145 mmol/L 06/03/2025 5:50 AM EDT [facility] Potassium, Plasma 3.4(L) 3.6 - 4.9 mmol/L 06/03/2025 5:50 AM EDT [facility] Chloride, Plasma 96(L) 97 - 107 mmol/L 06/03/2025 5:50 AM EDT [facility] CO2, Plasma 23 22 - 29 mmol/L 06/03/2025 5:50 AM EDT [facility] Anion Gap 19(H) 6 - 16 mmol/L 06/03/2025 5:50 AM EDT [facility] Total Calcium, Plasma 8.1(L) 8.9 - 10.2 mg/dL 06/03/2025 5:50 AM EDT [facility] Total Protein 6.0(L) 6.3 - 7.9 g/dL 06/03/2025 5:50 AM EDT [facility] Albumin, Plasma 3.3(L) 3.5 - 5.2 g/dL 06/03/2025 5:50 AM EDT [facility] AST, Plasma 13 10 - 35 U/L 06/03/2025 5:50 AM EDT [facility] ALT, Plasma <5(L) 10 - 35 U/L 06/03/2025 5:50 AM EDT [facility] Alkaline Phosphatase, Plasma 213(H) 46 - 142 U/L 06/03/2025 5:50 AM EDT [facility] Total Bilirubin, Plasma 0.3 0.2 - 1.1 mg/dL 06/03/2025 5:50 AM EDT [facility] eGFRcr 11.5 mL/min/1.7 3m*2 06/03/2025 5:50 AM EDT [facility] Comment:Reported eGFRcr in m L/min/1.73m2 is based the CKD-EPI 2020 equation that does not use a race coefficient. Blood Venous blood specimen / Unknown Venipuncture / Unknown 06/03/2025 4:51 AM EDT 06/03/2025 5:23 AM EDT us Faiza Garvin MD LAB BLOOD ORDERABLES Final Re sult [facility] [address] [place] [address] * Magnesium, Plasma (06/03/2025 4:51 AM EDT) Magnesium, Plasma 2.3 1.9 - 2.4 mg/dL 06/03/2025 5:50 AM EDT [facility] Blood Venous blood specimen / Unknown Venipuncture / Unknown 06/03/2025 4:51 AM EDT 06/03/2025 5:23 AM EDT us Faiza Garvin MD LAB BLOOD ORDERABLES Final Re sult Performing Organization Address [facility] Co de Phone Number [facility] [address] [place] [address] * (ABNORMAL) Phosphorus, Plasma (06/03/2025 4:51 AM EDT) Phosphorus, Plasma 5.3(H) 2.5 - 4.5 mg/dL 06/03/2025 5:50 AM EDT [facility] Blood Venous blood specimen / Unknown Venipuncture / Unknown 06/03/2025 4:51 AM EDT 06/03/2025 5:23 AM EDT us Faiza Garvin MD LAB BLOOD ORDERABLES Final Re sult Performing Organization Address [facility] [place] [address] * (ABNORMAL) Hemoglobin and Hematocrit, Blood (06/02/2025 5:50 PM EDT) HGB 8.3(L) 11.2 - 15.7 g/dL LAB HEMATOLOGY METHOD 06/02/2025 6:03 PM EDT [facility] HCT 29.0(L) 34.0 - 45.0 % LAB HEMATOLOGY METHOD 06/02/2025 6:03 PM EDT [facility] Blood Venous blood specimen / Unknown Venipuncture / Unknown 06/02/2025 5:50 PM EDT 06/02/2025 5:57 PM EDT Mayra Rogers MD LAB BLOOD ORDERABLES Final Resul t [facility] [address] [place] [address] * VAS US Hemodialysis Access Left (06/02/2025 [...] ISCV LV MASS(C)D 325 g VIOLETA ISCV [facility] CV ECHO LV MASS INDEX 190 g/m2 [...] is no recent study available for direct abtq-dc-gtri comparison. Unable to complete study due to [...] is no recent study available for direct cnpq-qh-jcem comparison. us Faiza Garvin MD CV ECHO PROCEDURES Final Resu lt * (ABNORMAL) Free T4, Plasma (06/02/2025 4:07 AM EDT) Free T4, Plasma 0.6(L) 0.8 - 1.7 ng/dL 06/02/2025 6:15 PM EDT [facility] Blood Venous blood specimen / Unknown Venipuncture / Unknown 06/02/2025 4:07 AM EDT 06/02/2025 4:26 AM EDT us Mayra Rogers MD LAB BLOOD ORDERABLES Final Resul t [facility] [address] [place] [address] * (ABNORMAL) TSH Reflex FT4 (06/02/2025 4:07 AM EDT) Thyroid Stimulating Hormone, Plasma 23.70(H) 0.40 - 4.20 uIU/mL 06/02/2025 5:37 PM EDT [facility] Blood Venous blood specimen / Unknown Venipuncture / Unknown 06/02/2025 4:07 AM EDT 06/02/2025 4:26 AM EDT us Mayra Rogers MD LAB BLOOD ORDERABLES Final Resul t [facility] [address] [place] [address] * (ABNORMAL) CBC and Differential (06/02/2025 4:07 AM EDT) WBC Count 6.73 3.70 - 10.30 10*3/uL LAB HEMATOLOGY METHOD 06/02/2025 6:07 AM EDT [facility] RBC Count 2.89(L) 3.90 - 5.20 10*6/uL LAB HEMATOLOGY METHOD 06/02/2025 6:07 AM EDT [facility] HGB 7.7(L) 11.2 - 15.7 g/dL LAB HEMATOLOGY METHOD 06/02/2025 6:07 AM EDT [facility] HCT 27.9(L) 34.0 - 45.0 % LAB HEMATOLOGY METHOD 06/02/2025 6:07 AM EDT [facility] Platelet Count LAB HEMATOLOGY METHOD 06/02/2025 6:07 AM EDT [facility] Comment:Interfering substanc e present, platelets appear decreased. Recollect recommended. MCV 97 79 - 98 fL LAB HEMATOLOGY METHOD 06/02/2025 6:07 AM EDT [facility] MCH 26.6 26.0 - 32.0 pg LAB HEMATOLOGY METHOD 06/02/2025 6:07 AM EDT [facility] MCHC 27.6(L) 30.7 - 35.5 g/dL LAB HEMATOLOGY METHOD 06/02/2025 6:07 AM EDT [facility] RDW 15.3(H) 11.5 - 14.5 % LAB HEMATOLOGY METHOD 06/02/2025 6:07 AM EDT [facility] MPV LAB HEMATOLOGY METHOD 06/02/2025 6:07 AM EDT [facility] Comment:Not Measured nRBC 0.3(H) <=0.0 per 100 WBCs LAB HEMATOLOGY METHOD 06/02/2025 6:07 AM EDT [facility] Differential Type Automated LAB HEMATOLOGY METHOD 06/02/2025 6:07 AM EDT [facility] Neutrophils % 84 % LAB HEMATOLOGY METHOD 06/02/2025 6:07 AM EDT [facility] Lymphocytes % 7 % LAB HEMATOLOGY METHOD 06/02/2025 6:07 AM EDT [facility] Monocytes % 6 % LAB HEMATOLOGY METHOD 06/02/2025 6:07 AM EDT [facility] Eosinophils % 2 % LAB HEMATOLOGY METHOD 06/02/2025 6:07 AM EDT [facility] Basophils % 1 % LAB HEMATOLOGY METHOD 06/02/2025 6:07 AM EDT [facility] Immature Granulocytes % 0 % LAB HEMATOLOGY METHOD 06/02/2025 6:07 AM EDT [facility] Neutrophils Absolute 5.62 1.60 - 6.10 10*3/uL LAB HEMATOLOGY METHOD 06/02/2025 6:07 AM EDT [facility] Lymphocytes Absolute 0.50(L) 1.20 - 3.90 10*3/uL LAB HEMATOLOGY METHOD 06/02/2025 6:07 AM EDT [facility] Monocytes Absolute 0.41 0.30 - 0.90 10*3/uL LAB HEMATOLOGY METHOD 06/02/2025 6:07 AM EDT [facility] Eosinophils Absolute 0.13 0.00 - 0.50 10*3/uL LAB HEMATOLOGY METHOD 06/02/2025 6:07 AM EDT [facility] Basophils Absolute 0.04 0.00 - 0.10 10*3/uL LAB HEMATOLOGY METHOD 06/02/2025 6:07 AM EDT [facility] Immature Granulocytes Absolute 0.03 0.00 - 0.06 10*3/uL LAB HEMATOLOGY METHOD 06/02/2025 6:07 AM EDT [facility] Blood Venous blood specimen / Unknown Venipuncture / Unknown 06/02/2025 4:07 AM EDT 06/02/2025 4:09 AM EDT [facility] - 06/02/2025 6:07 AM EDT Therapeutic decision making should be based on absolute values, rather than percentages. us Faiza Garvin MD LAB BLOOD ORDERABLES Final Re sult [facility] [address] [place] [address] * (ABNORMAL) Comprehensive Metabolic Panel, Plasma (06/02/2025 4:07 AM EDT) Glucose, Plasma 132(H) 74 - 99 mg/dL 06/02/2025 4:55 AM EDT [facility] BUN, Plasma 61(H) 7 - 21 mg/dL 06/02/2025 4:55 AM EDT [facility] Creatinine, Plasma 3.90(H) 0.60 - 1.10 mg/dL 06/02/2025 4:55 AM EDT [facility] BUN/Creatinine Ratio 16 06/02/2025 4:55 AM EDT [facility] Sodium, Plasma 136 136 - 145 mmol/L 06/02/2025 4:55 AM EDT [facility] Potassium, Plasma 3.6 3.6 - 4.9 mmol/L 06/02/2025 4:55 AM EDT [facility] Chloride, Plasma 96(L) 97 - 107 mmol/L 06/02/2025 4:55 AM EDT [facility] CO2, Plasma 22 22 - 29 mmol/L 06/02/2025 4:55 AM EDT [facility] Anion Gap 18(H) 6 - 16 mmol/L 06/02/2025 4:55 AM EDT [facility] Total Calcium, Plasma 8.1(L) 8.9 - 10.2 mg/dL 06/02/2025 4:55 AM EDT [facility] Total Protein 6.0(L) 6.3 - 7.9 g/dL 06/02/2025 4:55 AM EDT [facility] Albumin, Plasma 3.0(L) 3.5 - 5.2 g/dL 06/02/2025 4:55 AM EDT [facility] AST, Plasma 20 10 - 35 U/L 06/02/2025 4:55 AM EDT [facility] ALT, Plasma <5(L) 10 - 35 U/L 06/02/2025 4:55 AM EDT [facility] Alkaline Phosphatase, Plasma 194(H) 46 - 142 U/L 06/02/2025 4:55 AM EDT [facility] Total Bilirubin, Plasma 0.3 0.2 - 1.1 mg/dL 06/02/2025 4:55 AM EDT [facility] eGFRcr 12.9 mL/min/1.7 3m*2 06/02/2025 4:55 AM EDT [facility] Comment:Reported eGFRcr in m L/min/1.73m2 is based the CKD-EPI 2020 equation that does not use a race coefficient. Blood Venous blood specimen / Unknown Venipuncture / Unknown 06/02/2025 4:07 AM EDT 06/02/2025 4:26 AM EDT us Faiza Garvin MD LAB BLOOD ORDERABLES Final Re sult Performing Organization Address [facility] Co de Phone Number [facility] [address] [place] [address] * Magnesium, Plasma (06/02/2025 4:07 AM EDT) Magnesium, Plasma 2.3 1.9 - 2.4 mg/dL 06/02/2025 4:55 AM EDT [facility] Blood Venous blood specimen / Unknown Venipuncture / Unknown 06/02/2025 4:07 AM EDT 06/02/2025 4:26 AM EDT us Faiza Garvin MD LAB BLOOD ORDERABLES Final Re sult Performing Organization Address City/[facility]/ZIP Co de Phone Number [facility] [address] [place] [address] * (ABNORMAL) Phosphorus, Plasma (06/02/2025 4:07 AM EDT) Phosphorus, Plasma 4.8(H) 2.5 - 4.5 mg/dL 06/02/2025 4:55 AM EDT [facility] Blood Venous blood specimen / Unknown Venipuncture / Unknown 06/02/2025 4:07 AM EDT 06/02/2025 4:26 AM EDT Faiza Garvin MD LAB BLOOD ORDERABLES Final Re sult Performing Organization Address City/[facility]/ZIP Co de Phone Number [facility] [address] [place] [address] * SARS-CoV-2, Flu A, Flu B, and RSV - Rapid (06/01/2025 6:53 PM EDT) SARS CoV-2/COVID-19 RNA PCR Result Not Detected Not Detected 06/01/2025 7:59 PM EDT [facility] Influenza A Virus PCR Result Not Detected Not Detected 06/01/2025 7:59 PM EDT [facility] Influenza B Virus PCR Result Not Detected Not Detected 06/01/2025 7:59 PM EDT [facility] Respiratory Syncytial Virus (RSV) PCR Result Not Detected Not Detected 06/01/2025 7:59 PM EDT [facility] Swab Nasopharyngeal structure / Unknown Non-blood Collection / Unknown 06/01/2025 6:53 PM EDT 06/01/2025 7:02 PM EDT Narrative [facility] - 06/01/2025 7:59 PM [...] OR DERABLES Final Result Performing Organization Address City/[facility]/ZIP Co de Phone Number [facility] [address] [place] [address] * Blood Culture (Aerobic/Anaerobet Set) (06/01/2025 6:52 PM EDT) Culture No growth at day 5 06/06/2025 8:01 PM EDT [facility] Blood Structure of right hand / Unknown Venipuncture / Unknown 06/01/2025 6:52 PM EDT 06/01/2025 7:03 PM EDT Narrative [facility] - 06/06/2025 8:01 PM EDT Low blood volume submitted, results may be compromised Faiza Garvin MD LAB MICROBIOLOGY - GENERAL OR DERABLES Final Result Performing Organization Address City/[facility]/ZIP Co de Phone Number [facility] [address] [place] [address] * Blood Culture (Aerobic/Anaerobet Set) (06/01/2025 6:52 PM EDT) Culture No growth at day 5 06/06/2025 8:01 PM EDT [facility] Blood Structure of right wrist region / Unknown Venipuncture / Unknown 06/01/2025 6:52 PM EDT 06/01/2025 7:03 PM EDT Narrative [facility] - 06/06/2025 8:01 PM EDT Low blood volume submitted, results may be compromised Faiza Garvin MD LAB MICROBIOLOGY - GENERAL OR DERABLES Final Result Performing Organization Address City/[facility] Co de Phone Number [facility] [address] [place] [address] * XR Chest 1 View (06/01/2025 5:10 [...] Narrative 06/01/2025 7:25 PM EDT CLINICAL INDICATION: ALEJANDRA, hasn't had dialysis since Tuesday TECHNIQUE: XR CHEST 1 VIEW COMPARISON: 07/01/2024 radiograph FINDINGS: Stable enlarged cardiomediastinal silhouette. Intact median sternotomy wires. Bilateral, right greater than left perihilar airspace opacities and moderate to large right pleural effusion. No sizable pneumothorax. Procedure Note Tawny Hughes MD - 06/01/2025 CLINICAL INDICATION: ALEJANDRA, hasn't had dialysis since Tuesday TECHNIQUE: XR [...] ECG Atrial Rate 48 BPM MUSE ECG RI Interval 154 ms MUSE ECG QRSD Interval 114 ms MUSE ECG QT Interval 478 ms MUSE ECG QTC Interval 427 ms MUSE ECG P Penn 54 degrees MUSE ECG R Penn 116 degrees MUSE ECG T Wave Penn -12 degrees MUSE ECG Diagnosis Sinus bradycardia with premature atrial complexes with aberrant conduction MUSE ECG Diagnosis Low voltage QRS MUSE ECG Diagnosis Possible , old Anterior infarct MUSE ECG Diagnosis Left posterior fascicular block MUSE ECG Diagnosis Nonspecific T wave abnormality MUSE ECG Diagnosis Abnormal ECG MUSE ECG Diagnosis MUSE ECG Diagnosis Confirmed by Michael Garner ([id number]) on 06/02/2025 10:26:53 AM MUSE ECG 06/01/2025 4:57 PM EDT 06/02/2025 10:26 AM EDT Klarissa Monterroso DO ECG ORDERABLES Final Result Performing Organization Address City/[facility]/ZIP Co de Phone Number MUSE ECG * (ABNORMAL) BNP (06/01/2025 4:47 PM EDT) N-Terminal, PROBNP, Plasma >70,000(H) 0 - 899 pg/mL 06/01/2025 10:34 PM EDT [facility] Blood Venous blood specimen / Unknown Venipuncture / Unknown 06/01/2025 4:47 PM EDT 06/01/2025 4:53 PM EDT Faiza Garvin MD LAB BLOOD ORDERABLES Final Re sult [facility] [address] [place] [address] * (ABNORMAL) Blood gas panel, venous (06/01/2025 4:47 PM EDT) pH, Venous 7.34 7.32 - 7.43 LAB HEMATOLOGY METHOD 06/01/2025 4:54 PM EDT [facility] pCO2, Venous 51 37 - 52 mmHg LAB HEMATOLOGY METHOD 06/01/2025 4:54 PM EDT [facility] pO2, Venous 39 25 - 40 mmHg LAB HEMATOLOGY METHOD 06/01/2025 4:54 PM EDT [facility] SO2, Measured, Venous 66 65 - 80 % LAB HEMATOLOGY METHOD 06/01/2025 4:54 PM EDT [facility] Base Excess, Venous 1.5 -2.0 - 3.0 mmol/L LAB HEMATOLOGY METHOD 06/01/2025 4:54 PM EDT [facility] Bicarbonate, Calculated, Venous 28(H) 22 - 26 mmol/L LAB HEMATOLOGY METHOD 06/01/2025 4:54 PM EDT [facility] Hematocrit, Whole Blood 26.2(L) 34.0 - 45.0 % LAB HEMATOLOGY METHOD 06/01/2025 4:54 PM EDT [facility] Sodium, Whole Blood 138 136 - 145 mmol/L LAB HEMATOLOGY METHOD 06/01/2025 4:54 PM EDT [facility] Potassium, Whole Blood 3.3(L) 3.6 - 4.9 mmol/L LAB HEMATOLOGY METHOD 06/01/2025 4:54 PM EDT [facility] Chloride, Whole Blood 96(L) 97 - 107 mmol/L LAB HEMATOLOGY METHOD 06/01/2025 4:54 PM EDT [facility] Glucose, Whole Blood 158(H) 74 - 99 mg/dL LAB HEMATOLOGY METHOD 06/01/2025 4:54 PM EDT [facility] Lactate, Venous, Whole Blood 0.8 0.5 - 2.2 mmol/L LAB HEMATOLOGY METHOD 06/01/2025 4:54 PM EDT [facility] Ionized Calcium, Whole Blood 4.5(L) 4.6 - 5.1 mg/dL LAB HEMATOLOGY METHOD 06/01/2025 4:54 PM EDT [facility] Blood Venous blood specimen / Unknown Venipuncture / Unknown 06/01/2025 4:47 PM EDT 06/01/2025 4:53 PM EDT us Klarissa Monterroso DO LAB BLOOD ORDERABLES Final Re sult [facility] [address] [place] [address] * (ABNORMAL) Phosphorus (06/01/2025 4:47 PM EDT) Phosphorus, Plasma 4.7(H) 2.5 - 4.5 mg/dL 06/01/2025 5:16 PM EDT [facility] Blood Venous blood specimen / Unknown Venipuncture / Unknown 06/01/2025 4:47 PM EDT 06/01/2025 4:53 PM EDT Klarissa Montes [employer] DO LAB BLOOD ORDERABLES Final Re sult Performing Organization Address [facility]/ZIP Co de Phone Number [facility] [address] [place] [address] * Magnesium (06/01/2025 4:47 PM EDT) Pathologist [facility] Magnesium, Plasma 2.4 1.9 - 2.4 mg/dL 06/01/2025 5:16 PM EDT [facility] Blood Venous blood specimen / Unknown Venipuncture / Unknown 06/01/2025 4:47 PM EDT 06/01/2025 4:53 PM EDT Klarissa misterbnb DO LAB BLOOD ORDERABLES Final Re sult Performing Organization Address [facility]/ZIP Co de Phone Number [facility] [address] [place] [address] * (ABNORMAL) CBC (06/01/2025 4:47 PM EDT) [facility] WBC Count 6.37 3.70 - 10.30 10*3/uL LAB HEMATOLOGY METHOD 06/01/2025 5:00 PM EDT [facility] RBC Count 3.11(L) 3.90 - 5.20 10*6/uL LAB HEMATOLOGY METHOD 06/01/2025 5:00 PM EDT [facility] HGB 8.6(L) 11.2 - 15.7 g/dL LAB HEMATOLOGY METHOD 06/01/2025 5:00 PM EDT [facility] HCT 30.3(L) 34.0 - 45.0 % LAB HEMATOLOGY METHOD 06/01/2025 5:00 PM EDT [facility] Platelet Count 46(L) 155 - 369 10*3/uL LAB HEMATOLOGY METHOD 06/01/2025 5:00 PM EDT [facility] MCV 97 79 - 98 fL LAB HEMATOLOGY METHOD 06/01/2025 5:00 PM EDT [facility] MCH 27.7 26.0 - 32.0 pg LAB HEMATOLOGY METHOD 06/01/2025 5:00 PM EDT [facility] MCHC 28.4(L) 30.7 - 35.5 g/dL LAB HEMATOLOGY METHOD 06/01/2025 5:00 PM EDT [facility] RDW 15.4(H) 11.5 - 14.5 % LAB HEMATOLOGY METHOD 06/01/2025 5:00 PM EDT [facility] MPV LAB HEMATOLOGY METHOD 06/01/2025 5:00 PM EDT [facility] Comment:Not Measured nRBC 0.0 <=0.0 per 100 WBCs LAB HEMATOLOGY METHOD 06/01/2025 5:00 PM EDT [facility] Blood Venous blood specimen / Unknown Venipuncture / Unknown 06/01/2025 4:47 PM EDT 06/01/2025 4:53 PM EDT Klarissa Monterroso DO LAB BLOOD ORDERABLES Final Re sult [facility] [address] [place] [address] * (ABNORMAL) CMP (06/01/2025 4:47 PM EDT) Glucose, Plasma 166(H) 74 - 99 mg/dL 06/01/2025 5:16 PM EDT [facility] BUN, Plasma 57(H) 7 - 21 mg/dL 06/01/2025 5:16 PM EDT [facility] Creatinine, Plasma 3.87(H) 0.60 - 1.10 mg/dL 06/01/2025 5:16 PM EDT [facility] BUN/Creatinine Ratio 15 06/01/2025 5:16 PM EDT [facility] Sodium, Plasma 138 136 - 145 mmol/L 06/01/2025 5:16 PM EDT [facility] Potassium, Plasma 3.4(L) 3.6 - 4.9 mmol/L 06/01/2025 5:16 PM EDT [facility] Chloride, Plasma 96(L) 97 - 107 mmol/L 06/01/2025 5:16 PM EDT [facility] CO2, Plasma 25 22 - 29 mmol/L 06/01/2025 5:16 PM EDT [facility] Anion Gap 17(H) 6 - 16 mmol/L 06/01/2025 5:16 PM EDT [facility] Total Calcium, Plasma 8.3(L) 8.9 - 10.2 mg/dL 06/01/2025 5:16 PM EDT [facility] Total Protein 6.4 6.3 - 7.9 g/dL 06/01/2025 5:16 PM EDT [facility] Albumin, Plasma 3.3(L) 3.5 - 5.2 g/dL 06/01/2025 5:16 PM EDT [facility] AST, Plasma 19 10 - 35 U/L 06/01/2025 5:16 PM EDT [facility] ALT, Plasma <5(L) 10 - 35 U/L 06/01/2025 5:16 PM EDT [facility] Alkaline Phosphatase, Plasma 224(H) 46 - 142 U/L 06/01/2025 5:16 PM EDT [facility] Total Bilirubin, Plasma 0.3 0.2 - 1.1 mg/dL 06/01/2025 5:16 PM EDT [facility] eGFRcr 13.1 mL/min/1.7 3m*2 06/01/2025 5:16 PM EDT [facility] Comment:Reported eGFRcr in m L/min/1.73m2 is based the CKD-EPI 2020 equation that does not use a race coefficient. 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 History of glaucoma [...] Coronary atherosclerosis of unspecified type of vessel, menominee or graft Anemia Unspecified anemia Severe protein-calorie [...] modification) on Tue06/08/25 at 0900, Until Discontinued 1000 (Given - [...] Pham RN) 1414 (Given - Provider: Mayra Shankar, CHAO) levothyroxine (Synthroid, Levoxyl) tablet 88 mcg 88 [...] documented in this encounter Additional Health Concerns Infection Onset Date Last Indicated Resolved Time COVID-19 Rule-Out 06/01/2025 06/01/2025 06/01/2025 7:59 PM EDT Assessment Noted Time A Body Mass Index follow-up plan has been documented for the patient 06/10/2025 2:59 PM EDT documented as of this encounter Care Teams Aquatic Performer Relationship Specialty Start Date End Date Rosemarie Riley APRN [address] [place] [address] PCP - General 04/02/25 Haydee Mccloud Agency Appointments Supervisor Supplier Quality Engineering Manager 06/03/25 documented as of this encounter
[2025-06-23] VITALS (13 sets, daily range): BP systolic 160–206; BP diastolic 44–109; PULSE 61–77; RESP 20–22; TEMP 36.6–36.7; O2SAT 86–99
--- OUTSIDE RECORDS SUMMARY | 2025-06-23 11:43 | XMS_ITS | Encounter Summary ---
Author Organization [facility] Address [address] [place] [address] Care Team Providers Care Real Time Trader Name Role Phone RileyRosemarie beach STEVE Primary Care Provider [phone] Haydee Mccloud Unavailable Unavailable Baylee Gracia Unavailable Unavailable Reason for Visit * Reason Comments TCM Encounter Details Date Type Department Care Team (Late st Contact Info) Description 06/13/2025 Patient Outreach [facility] [address], [address] [place] [address] Baylee Gracia TCM Social History Tobacco Use Types Packs/Day Years Used Date Smoking Tobacco: Every Day Alcohol Use Standard Drinks/Week Comments No 0 (1 standard drink = 0.6 oz pur e alcohol) Social Connection and Isolation Panel Answer Date Recorded Frequency of Communication with Friends and Fami ly Not on file 06/25/2024 Frequency of Social Gatherin gs with Friends and Family Not on file 06/25/2024 Attends Bahai Services Not on file 06/25 Active Member [...] any time in the past 12 m [facility], were you homeless or living in a nursing home (including now)? No 06/03/[address] [facility] Utilities Answer Date Recorded In the [...] drink first t jacqueline in the morning (EYE-HR COORDINATOR) to steady your nerves or to get rid of a hangover? 0 06/21/2024 CAGE Questionnaire Score 0 024 Comments Unknown Sex and Gender Information Value Date Recorded Sex Assigned at Female 07/03/2024 2:13 PM EDT Legal Sex Female 7:39 PM EDT Gender Identity Not on file Sexual Orientation Not on file documented as of this encounter Miscellaneous Notes * Progress Notes - Baylee Gracia - 06/13/2025 2:32 PM EDT 06/13/2025 TCM call # 2 Patient Reached: Yes Outcome: Not successful, currently driving/riding in the car with her son and unable to complete call. RN is scheduled to call back. Action: RN to fu with patient and sonYo on 06/14. Medication changes: n/a LEANN appointment: n/a Items to address at LEANN: Pain, SDOH, Safety. documented in this encounter Plan of Treatment Upcoming Encounters Date Type Department Care Team (Late st Contact Info) Description 07/05/2025 1:00 PM EDT Consult [facility]rology [address] [place] [address] Sobia Goldberg PA [address] [place] [address] 07/05/2025 2:00 PM EDT Appointment [facility] Pulmonary Function Testing [address] [place] [address] 08/20/2025 12:00 PM EST Office Visit [facility] [place] [address], [address] [place] [address] Kaiden Harvey MD [address] [place] [address] documented as of this encounter Visit Diagnoses Not on filedocumented in this encounter Additional Health Concerns Assessment Noted Time A Body Mass Index follow-up plan has been documented for the patient 06/10/2025 2:59 PM EDT documented as of this encounter Care Teams Real Time Trader Relationship Specialty Start Date End Date Rosemarie Riley, STEVE [address] [place] [address] PCP - General 04/02/25 Haydee Mccloud Suction Dredge Dumping Supervisor Computer Terminal Operator 06/03/25 Baylee Gracia Registered Nurse 06/12/25 documented as of this encounter
--- OUTSIDE RECORDS SUMMARY | 2025-06-23 11:43 | XMS_ITS | Encounter Summary ---
Author Organization [facility] Address [address] [place] [address] Care Team Providers Care Technical Customer Support Specialist Name Role Phone RileyRosemarie beach STEVE Primary Care Provider [phone] Haydee Mccloud Unavailable Unavailable Baylee Gracia Unavailable Unavailable Reason for Visit * Reason Comments TCM Encounter Details Date Type Department Care Team (Late st Contact Info) Description 06/12/2025 Patient Outreach [facility] [address], [address] [place] [address] Baylee Gracia TCM Social History [...] and Family Not on file 06/25/2024 Attends Gnosticist Services Not on file 06/25 Active Member [...] any time in the past 12 m [facility], were you homeless or living in a fci (including now)? No 06/03/2025 [facility] Utilities Answer Date Recorded In the past [...] drink first t jacqueline in the morning (EYE-VEGETABLE VENDOR) to steady your nerves or to get [...] * Progress Notes - Baylee Gracia - 06/12/2025 10:13 AM EDT Admit Date: 06/01/2025 Discharge Date: 06/10/2025 Hospital Service: Medicine Discharge Diagnosis: Acute Hypoxic Respiratory Failure, ESRD 06/12/2025 TCM call # 1 Patient Reached: No Outcome: UTR Action: n/a Medication changes: n/a LEANN appointment: None scheduled, only Nephrology scheduled in June. Items to address at LEANN: PCP, SDOH, ADL needs. documented in this encounter Plan of Treatment Upcoming Encounters Date Type Department Care Team (Late st Contact Info) Description 07/05/2025 1:00 PM EDT Consult [facility] Urology [address] [place] [address] Sobia Goldberg PA [address] [place] [address] 07/05/2025 2:00 PM EDT Appointment [facility] Pulmonary Function Testing [address] [place] [address] 08/20/2025 12:00 PM EST Office Visit [facility] [place] [address] [facility] [facility], [address] [place] [address] Kaiden Harvey MD [address] [place] [address] documented as of this encounter Visit Diagnoses Not on filedocumented in this encounter Additional Health Concerns Assessment Noted Time A Body Mass Index follow-up plan has been documented for the patient 06/10/2025 2:59 PM EDT documented as of this encounter Care Teams Technical Customer Support Specialist Relationship Specialty Start Date End Date Rosemarie Riley, STEVE [address] [place] [address] PCP - General 04/02/25 Haydee Mccloud Clinic Specialist Office Manager 06/03/25 Baylee Gracia Registered Nurse 06/12/25 documented as of this encounter
--- OUTSIDE RECORDS SUMMARY | 2025-06-23 11:43 | XMS_ITS | Encounter Summary ---
Author Organization [facility] Address [address] [place] [address] Care Team Providers Care Account Development Associate Name Role Phone RosemaryRosemarie Shanel WILSON Primary Care Provider [phone] Haydee Mccloud Unavailable Unavailable Encounter Details Date Type Department Care Team (Latest Contact Info) Description 06/10/2025 Travel Social History Tobacco Use Types Packs/Day [...] and Family Not on file 06/25/2024 Attends Orthodox Services Not on file 06/25 Active Member of Clubs or Organizations Not on f ile 06/25/2024 Attends Club or Organization Meetings Not on borsi e 06/25/2024 Are you , , di [...] any time in the past 12 m [facility], were you homeless or living in a skilled nursing (including now)? No 06/03/[address] [facility] Utilities Answer Date Recorded In the [...] drink first t jacqueline in the morning (EYE-UNION CONTRACT REPRESENTATIVE) to steady your nerves or to get rid of a hangover? 0 06/21/2024 CAGE Questionnaire Score 0 024 Comments Unknown Sex and Gender Information Value Date Recorded Sex Assigned at Female 07/03/2024 2:13 PM EDT Legal Sex Female 7:39 PM EDT Gender Identity Not on file Sexual Orientation Not on file documented as of this encounter Functional Status [...] Hung RN documented as of this encounter Plan of Treatment Upcoming Encounters Date Type Department Care Team (Late st Contact Info) Description 07/05/2025 1:00 PM EDT [facility] [address] [place] [address] Sobia Goldberg PA [address] [place] [address] 07/05/2025 2:00 PM EDT Appointment P[facility] Pulmonary Function Testing [address] [place] [address] 08/20/2025 12:00 PM EST Office Visit [facility] [place] [address] [facility] [address] [facility], [address] [place] [address] Kaiden Harvey MD [address] [place] [address] documented as of this encounter Visit Diagnoses Not on filedocumented in this encounter Additional Health Concerns Assessment Noted Time A Body Mass Index follow-up plan has been documented for the patient 06/10/2025 2:59 PM EDT documented as of this encounter Care Teams Account Development Associate Relationship Specialty Start Date End Date Rosemarie Riley APRN [address] [place] [address] PCP - General 04/02/25 Haydee Mccloud Engine Emission Technician Geothermal Powerplant Mechanic 06/03/25 documented as of this encounter
--- OUTSIDE RECORDS SUMMARY | 2025-06-23 11:43 | XMS_ITS | Encounter Summary ---
Author Organization [facility] Address [address] [place] [address] Care Team Providers Care Yoga Teacher Name Role Phone RileyRosemarie beach STEVE Primary Care Provider [phone] Haydee Mccloud Unavailable Unavailable Baylee Gracia Unavailable Unavailable Encounter Details Date Type Department Care Team (Late st Contact Info) Description 06/12/2025 Referral Triage [facility] [address] [facility], [address] [place] [address] Baylee Gracia Social History Tobacco Use Types Packs/Day Years Used Date Smoking Tobacco: Every Day Alcohol Use Standard Drinks/Week Comments No 0 (1 standard drink = 0.6 oz pur e alcohol) Social Connection and Isolation Panel Answer Date Recorded Frequency of Communication with Friends and Fami ly Not on file 06/25/2024 Frequency of Social Gatherin gs with Friends and Family Not on file 06/25/2024 Attends Rastafarian Services Not on file 06/25 Active Member [...] were you homeless or living in a long-term (including now)? No 06/03/2025 [facility] Utilities Answer Date Recorded In the [...] drink first t jacqueline in the morning (EYE-RIPRAP MAN) to steady your nerves or to get rid of a hangover? 0 06/21/2024 CAGE Questionnaire Score 0 024 Comments Unknown Sex and Gender Information Value Date Recorded Sex Assigned at Female 07/03/2024 2:13 PM EDT Legal Sex Female 7:39 PM EDT Gender Identity Not on file Sexual Orientation Not on file documented as of this encounter Plan of Treatment Upcoming Encounters Date Type Department Care Team (Late st Contact Info) Description 07/05/2025 1:00 PM EDT Consult [facility] [address] [place] [address] Sobia Goldberg, RIGO [address] [place] [address] 07/05/2025 2:00 PM EDT Appointment PAV H Pulmonary Function Testing [address] [place] [address] 08/20/2025 12:00 PM EST Office Visit [facility] [place] [address] [facility], [address] [place] [address] Kaiden Harvey MD [address] [facility] [address] [place] [address] documented as of this encounter Visit Diagnoses Not on filedocumented in this encounter Additional Health Concerns Assessment Noted Time A Body Mass Index follow-up plan has been documented for the patient 06/10/2025 2:59 PM EDT documented as of this encounter Care Teams Yoga Teacher Relationship Specialty Start Date End Date Rosemarie Riley APRN [address] [place] [address] PCP - General 04/02/25 Haydee Mccloud Extractor Tender Raw Stock Media Account Executive 06/03/25 Baylee Gracia Registered Nurse 06/12/25 documented as of this encounter
--- OUTSIDE RECORDS SUMMARY | 2025-06-23 11:45 | XMS_ITS | Encounter Summary ---
Author Organization [facility] Address [address] [place] [address] Care Team Providers Care Transport Operations Inspector Name Role Phone Osmani Becker MD Primary Care Provider [phone] Rosemarie Riley APRN Primary Care Provider [phone] Haydee Mccloud Unavailable Unavailable Baylee Gracia Unavailable Unavailable Encounter Details Date Type Department Care Team (Late st Contact Info) Description 02/20/2025 Orders Only External Location [address] [place] [id number] Provider, External Social History Tobacco Use Types [...] and Family Not on file 06/25/2024 Attends Episcopal Services Not on file 06/25 Active Member [...] drink first t jacqueline in the morning (EYE-ACADEMIC ADVISEMENT DIRECTOR) to steady your nerves or to get [...] Upcoming Encounters Date Type Department Care Team ([facility] st Contact Info) Description 07/05/2025 1:00 PM EDT [facility] [address] [place] [address] Sobia Goldberg PA [address] [place] [address] 07/05/2025 2:00 PM EDT Appointment PAV H Pulmonary Function Testing [address] [place] [address] 08/20/2025 12:00 PM EST Office Visit [facility] [place] [address] [place] [address] Kaiden Harvey MD [address] [place] [address] documented as of this encounter [...] filedocumented in this encounter Additional Health Concerns Infection Onset Date Last Indicated Resolved Time COVID-19 Rule-Out 06/01/2025 06/01/2025 06/01/2025 7:59 PM EDT Assessment Noted Time A Body Mass Index follow-up plan has been documented for the patient 06/30/2024 1:58 PM EDT documented as of this encounter Care Teams Transport Operations Inspector Relationship Specialty Start Date End Date Osmani Becker MD [address] [facility] [address] [place], [place] [id number] PCP - General 01/30/21 03/03/25 Rosemarie Riley APRN [address] [place], [place] [id number] PCP - General 04/02/25 Haydee Mccloud Gypsum Calciner Metal Temperer 06/03/25 Baylee Gracia Registered Nurse 06/12/25 documented as of this encounter
--- OUTSIDE RECORDS SUMMARY | 2025-06-23 11:45 | XMS_ITS | Encounter Summary ---
Author Organization [facility] Address [address] [place] [address] Care Team Providers Care Securities Broker Name Role Phone Osmani Becker MD Primary Care Provider [phone] Rosemarie Riley APRN Primary Care Provider [phone] Haydee Mccloud Unavailable Unavailable Baylee Gracia Unavailable Unavailable Encounter Details Date Type Department Care Team (Late st Contact Info) Description 02/21/2025 Orders Only External Location [address] [place] [phone] Provider, External Social History Tobacco Use Types [...] and Family Not on file 06/25/2024 Attends Jainism Services Not on file 06/25 Active Member [...] place to sleep or slept in a alf (including now)? No 06/25/2024 CAGE ASSESSMENT Answer [...] drink first t jacqueline in the morning (EYE-CONDUCTOR PULLMAN) to steady your nerves or to get [...] Upcoming Encounters Date Type Department Care Team ([facility] st Contact Info) Description 07/05/2025 1:00 PM EDT Consult [place] [facility] [address], [address] [place] [address] Sobia Goldberg PA [address] [place] [address] 07/05/2025 2:00 PM EDT Appointment PAV H Pulmonary Function Testing [address] [place] [address] 08/20/2025 12:00 PM EST Office Visit [facility] [place] [address], [address] [place] [address] Kaiden Harvey MD [address] [place] [address] documented as of this encounter [...] documented as of this encounter Care Teams Securities Broker Relationship Specialty Start Date End Date Osmani Becker MD [facility] [address] [place], [place] [id number] PCP - General 01/30/21 03/03/25 Rosemarie Riley APRN Count includes the [facility]0 [place] [id number] PCP - General 04/02/25 Haydee Mccloud Compliance Examiner Fitness Director 06/03/25 Baylee Gracia Registered Nurse 06/12/25 documented as of this encounter
--- OUTSIDE RECORDS SUMMARY | 2025-06-23 11:45 | XMS_ITS | Encounter Summary ---
Author Organization [facility] Address [address] [place] [address] Care Team Providers Care Educational Institution Curator Name Role Phone RosemaryRosemarie Shanel WILSON Primary Care Provider [phone] Haydee Mccloud Unavailable Unavailable Encounter Details Date Type Department Care Team (Latest Contact Info) Description 06/07/2025 Travel Social History Tobacco Use Types Packs/Day [...] any time in the past 12 m [facility], were you homeless or living in a nursing home (including now)? No 06/03/2025 [facility] Utilities Answer Date Recorded In the [...] drink first t jacqueline in the morning (EYE-STEMHOLE BORER AND TOPPER) to steady your nerves or to get [...] Date of Assessment Author No Risk Indicated 06/07/2025 8:00 PM EDT Sonya Santos RN * Question Answer Date of Assessment Author 1. Wish to be (Past 1 Month) No 025 8:00 PM EDT Aranza Santos RN 2. Non-Specific Active Suici ludwin Thoughts (Past 1 Month) No 06/07/2025 8:00 PM EDT Aranza Santos RN 6. Suicidal Behavior (Lifetime) No 8:00 PM EDT Aranza Santos RN documented as of this encounter Plan of Treatment Upcoming Encounters Date Type Department Care Team (Late st Contact Info) Description 07/05/2025 1:00 PM EDT Consult [facility] Urology [address] [place] [address] Sobia Goldberg PA [address] [place] [address] 07/05/2025 2:00 PM EDT Appointment PAV H Pulmonary Function Testing [address] [place] [address] 08/20/2025 12:00 PM EST Office Visit [facility] [place] [address] [facility] [address] [facility], [address] [place] [address] Kaiden Harvey MD [address] [facility] [address] [place] [address] documented as of this encounter Visit Diagnoses Not on filedocumented in this encounter Additional Health Concerns Assessment Noted Time A Body Mass Index follow-up plan has been documented for the patient 06/10/2025 2:59 PM EDT documented as of this encounter Care Teams Educational Institution Curator Relationship Specialty Start Date End Date Rosemarie Riley APRN [address] [place] [address] PCP - General 04/02/25 Haydee Mccloud Police Patrol Lieutenant Stonemason Helper 06/03/25 documented as of this encounter
--- OUTSIDE RECORDS SUMMARY | 2025-06-23 11:45 | XMS_ITS | Encounter Summary ---
Author Organization Healthcare Address [address] [place] [address] Care Team Providers Care Potato Chip Frier Name Role Phone RileyRosemarie beach Shanel WILSON Primary Care Provider [phone] Haydee Mccloud Unavailable Unavailable Baylee Gracia Unavailable Unavailable Encounter Details Date Type Department Care Team (Late st Contact Info) Description 06/17/2025 Orders Only [facility] Medicine Virtual Dept. [address] [place] [address] Mayra Rogers MD [address] [place] [address] Social History Tobacco Use Types Packs/Day Years Used Date Smoking Tobacco: Every Day Alcohol Use Standard Drinks/Week Comments No 0 (1 standard drink = 0.6 oz pur e alcohol) Social Connection and Isolation Panel Answer Date Recorded Frequency of Communication with Friends and Fami ly Not on file 06/25/2024 Frequency of Social Gatherin gs with Friends and Family Not on file 06/25/2024 Attends Church Services Not on file 06/25 Active Member [...] any time in the past 12 m [facility], were you homeless or living in a jail (including now)? No 06/03/2025 [facility] Utilities Answer Date Recorded In the past 12 months has th e [employer], gas, oil, or water company threatened to [...] drink first t jacqueline in the morning (EYE-LOCAL DRIVER) to steady your nerves or to get rid of a hangover? 0 06/21/2024 CAGE Questionnaire Score 0 024 Comments Unknown Sex and Gender Information Value Date Recorded Sex Assigned at Female 07/03/2024 2:13 PM EDT Legal Sex Female 7:39 PM EDT Gender Identity Not on file Sexual Orientation Not on file documented as of this encounter Miscellaneous Notes * Progress Notes - Mayra Rogers MD - 06/17/2025 1:43 PM EDT I was called that Ms. Waldron needed more pain medications to bridge her to her pain clinic appointment tomorrow. Afternoon. I sent in 1 day of pain medications. However, for further management of herchronic pain, she will need to see her outpatient pain management clinic. Mayra Rogers MD documented in this encounter Plan of Treatment Upcoming Encounters Date Type Department Care Team (Late st Contact Info) Description 07/05/2025 1:00 PM EDT Consult [facility] Urology [address], [address] [place] [address] Sobia Goldberg PA [address] [place] [address] 07/05/2025 2:00 PM EDT Appointment PAV H Pulmonary Function Testing [address] [place] [address] 08/20/2025 12:00 PM EST Office Visit [facility] [place] [address] [facility], [address] [place] [address] Kaiden Harvey MD [address] [place] [address] documented as of this encounter Visit Diagnoses Not on filedocumented in this encounter Additional Health Concerns Assessment Noted Time A Body Mass Index follow-up plan has been documented for the patient 06/10/2025 2:59 PM EDT documented as of this encounter Care Teams Potato Chip Frier Relationship Specialty Start Date End Date Rosemarie Riley APRN [facility] [place] [address] PCP - General 04/02/25 Haydee Mccloud Buffing Wheel Presser Runstitching Machine Operator 06/03/25 Baylee Gracia Registered Nurse 06/12/25 documented as of this encounter
--- OUTSIDE RECORDS SUMMARY | 2025-06-23 11:45 | XMS_ITS | Encounter Summary ---
Author Organization [facility] Address [address] [place] [address] Care Team Providers Care Dependency Case Manager Name Role Phone RileyRosemarie beach STEVE Primary Care Provider [phone] Haydee Mccloud Unavailable Unavailable Baylee Gracia Unavailable Unavailable Reason for Visit * Reason Comments TCM Encounter Details Date Type Department Care Team (Late st Contact Info) Description 06/17/2025 Patient Outreach [facility] [address], [address] [place] [address] Baylee Gracia TCM Social History [...] any time in the past 12 m [facility], were you homeless or living in a group home (including now)? No 06/03/2025 [facility] Utilities Answer Date Recorded In the [...] drink first t jacqueline in the morning (EYE-SALES AND LEASING AGENT) to steady your nerves or to get [...] * Progress Notes - Baylee Gracia - 06/17/2025 11:46 AM EDT 06/17/2025 TCM call # 3 Patient Reached: No Outcome: UTR Action: Patient is UTR at this time. RN to Medication changes: n/a LEANN appointment: n/a Items to address at LEANN: n/a documented in this encounter Plan of Treatment Upcoming Encounters Date Type Department Care Team (Late st Contact Info) Description 07/05/2025 1:00 PM EDT Consult [facility] Urology [address] [place] [address] Sobia Goldberg PA [address] [place] [address] 07/05/2025 2:00 PM EDT Appointment PAV H Pulmonary Function Testing [address] [place] [address] 08/20/2025 12:00 PM EST Office Visit [facility] [place] [address] [facility] [address] [facility], [address] [place] [address] Kaiden Harvey MD [address] [facility] [address] [place] [address] documented as of this encounter Visit Diagnoses Not on filedocumented in this encounter Additional Health Concerns Assessment Noted Time A Body Mass Index follow-up plan has been documented for the patient 06/10/2025 2:59 PM EDT documented as of this encounter Care Teams Dependency Case Manager Relationship Specialty Start Date End Date Rosemarie Riley, STEVE [address] [place], [place] [id number] PCP - General 04/02/25 Haydee Mccloud Business Applications Analyst Semi Automatic Sewing Machine Operator 06/03/25 Baylee Gracia Registered Nurse 06/12/25 documented as of this encounter
--- OUTSIDE RECORDS SUMMARY | 2025-06-23 11:45 | XMS_ITS | Encounter Summary ---
Author Organization [facility] Address [address] [place] [address] Care Team Providers Care Vocal Music Instructor Name Role Phone RileyRosemarie beach Shanel WILSON Primary Care Provider [phone] Encounter Details Date Type Department Care Team [...] place to sleep or slept in a intermediate (including now)? No 06/25/2024 CAGE ASSESSMENT Answer [...] drink first t jacqueline in the morning (EYE-STRATEGIC PLANNING SPECIALIST) to steady your nerves or to get rid of a hangover? 0 06/21/2024 CAGE Questionnaire Score 0 024 Utilities Answer Date Recorded In the past 12 months has th e [employer], gas, oil, or water company threatened to [...] Info) Description 07/05/2025 1:00 PM EDT Consult [facility] Urology [address], [address] [place] [address] Sobia Goldberg PA [address] [place] [address] 07/05/2025 2:00 PM EDT Appointment PAV H Pulmonary Function Testing [address] [place] [address] 08/20/2025 12:00 PM EST Office Visit [facility] [place] [address] [facility], [address] [place] [address] Kaiden Harvey MD [address] [facility] [address] [place] [address] documented as of this encounter Visit Diagnoses Not on filedocumented in this encounter Additional Health Concerns Assessment Noted Time A Body Mass Index follow-up plan has been documented for the patient 06/30/2024 1:58 PM EDT documented as of this encounter Care Teams Vocal Music Instructor Relationship Specialty Start Date End Date Rosemarie Riley APRN [facility] [place] [id number] PCP - General 04/02/25 documented as of this encounter
--- OUTSIDE RECORDS SUMMARY | 2025-06-23 11:45 | XMS_ITS | Encounter Summary ---
Author Organization [facility] Address [address] [place] [address] Care Team Providers Care Client Services Analyst Name Role Phone Osmani Becker MD Primary Care Provider [phone] Rosemarie Riley APRN Primary Care Provider [phone] Haydee Mccloud Unavailable Unavailable Baylee Gracia Unavailable Unavailable Encounter Details Date Type Department Care Team (Late st Contact Info) Description 02/20/2025 Orders Only External Location [address] [place] [address] Provider, External Social History Tobacco Use Types [...] and Family Not on file 06/25/2024 Attends Mu-Ism Services Not on file 06/25 Active Member [...] place to sleep or slept in a [place] (including now)? No 06/25/2024 CAGE ASSESSMENT Answer [...] drink first t jacqueline in the morning (EYE-MARINE GEAR KEEPER) to steady your nerves or to get [...] Upcoming Encounters Date Type Department Care Team ([facility] st Contact Info) Description 07/05/2025 1:00 PM EDT Consult [place] [facility] [address], [address] [place] [address] Sobia Goldberg PA [address] [place] [address] 07/05/2025 2:00 PM EDT Appointment PAV H Pulmonary Function Testing [address] [place] [address] 08/20/2025 12:00 PM EST Office Visit [facility] [place] [address], [address] [place] [address] Kaiden Harvey MD [address] [place] [address] documented as of this encounter [...] documented as of this encounter Care Teams Client Services Analyst Relationship Specialty Start Date End Date Osmani Becker MD [facility] [address] [place] [address] PCP - General 01/30/21 03/03/25 Rosemarie Riley APRN [address] [place] [id number] PCP - General 04/02/25 Haydee Mccloud Flow Trader Swing Grinder 06/03/25 Baylee Gracia Registered Nurse 06/12/25 documented as of this encounter
--- OUTSIDE RECORDS SUMMARY | 2025-06-23 11:45 | XMS_ITS | Encounter Summary ---
Author Organization [facility] Address [address] [place] [address] Care Team Providers Care Supply Chain Consultant Name Role Phone RileyRosemarie beach Shanel WILSON Primary Care Provider [phone] Encounter Details Date Type Department Care Team [...] and Family Not on file 06/25/2024 Attends Mor[employer] Services Not on file 06/25 Active Member [...] drink first t jacqueline in the morning (EYE-FIRMWARE SOFTWARE VERIFICATION ENGINEER) to steady your nerves or to get rid of a hangover? 0 06/21/2024 CAGE Questionnaire Score 0 024 Utilities Answer Date Recorded In the past 12 months has th e [employer], gas, oil, or water company threatened to [...] 05/05/2025 4:23 PM EDT Janna Castro, CHAO 6. Suicidal Behavior (Lifetime) No 05/05/2025 4:23 PM EDT Janna Castro RN documented as of this encounter Plan of Treatment Upcoming Encounters Date Type Department Care Team (Late st Contact Info) Description 07/05/2025 1:00 PM EDT Consult [facility] Urology [address], [address] [place] [address] Sobia Goldberg PA [address] [place] [address] 07/05/2025 2:00 PM EDT Appointment PAV H Pulmonary Function Testing [address] [place] [address] 08/20/2025 12:00 PM EST Office Visit [facility] [place] [address] [facility], [address] [place] [address] Kaiden Harvey MD [address] [facility] [address] [place] [address] documented as of this encounter Visit Diagnoses Not on filedocumented in this encounter Additional Health Concerns Assessment Noted Time A Body Mass Index follow-up plan has been documented for the patient 06/30/2024 1:58 PM EDT documented as of this encounter Care Teams Supply Chain Consultant Relationship Specialty Start Date End Date Rosemarie Riley APRN [facility] [place] [id number] PCP - General 04/02/25 documented as of this encounter
--- OUTSIDE RECORDS SUMMARY | 2025-06-23 11:45 | XMS_ITS | Encounter Summary ---
Author Organization Healthcare Address [address] [place] [address] Care Team Providers Care Sole Layer Hand Name Role Phone Rosemarie Riley APRN Primary Care Provider [phone] Haydee Mccloud Unavailable Unavailable Reason for Referral * Consultation (Routine) - Authorized Specialty Diagnoses / Procedures Referred By Contac t Referred To Contact Diagnoses Encounter for support and coordination of transition of care Mayra Rogers MD [address] [place] [address] Phone: tel: fax: [facility] [address] [facility] [address] [facility] [address], [facility] [address] [place] [address] Phone: tel: Referral ID Status Reason Start Date Expiration Date Visits Requested Visits Authorized [id number] Authorized Other Co-Managemen t of Problem 06/11/2025 12/11/2026 1 1 Reason for Visit * Reason Comments Link Encounter Details Date Type Department Care Team ([facility] st Contact Info) Description 06/06/2025 Patient Outreach [facility] [address] [facility] [address], [facility] [address] [place] [address] Haydee Mccloud Link Social History Tobacco Use Types Packs/Day Years Used Date Smoking Tobacco: Every Day Alcohol Use Standard Drinks/Week Comments No 0 (1 standard drink = 0.6 oz pur e alcohol) Social Connection and Isolation Panel Answer Date Recorded Frequency of Communication with Friends and Fami ly Not on file 06/25/2024 Frequency of Social Gatherin gs with Friends and Family Not on file 06/25/2024 Attends Yazidi Services Not on file 06/25 Active Member [...] money to buy more. Never true 06/03/20 Within the past 12 months, t he [...] any time in the past 12 m onths, were you homeless or living in a usp (including now)? No 06/03/2025 [facility] Utilities Answer Date Recorded In [...] drink first t jacqueline in the morning (EYE-DRYWALL FINISHER) to steady your nerves or to get [...] Hung RN documented as of this encounter Miscellaneous Notes * Addendum Note - Brooke Bueno - 06/06/2025 12:42 PM EDTAddended by: BROOKE BUENO on: 06/11/2025 11:53 AM Modules accepted: Orders * Progress Notes - Haydee Mccloud - 06/06/2025 12:42 PM EDT LINK SW attempted contact with pt and/or pt's son bedside for introductions and review of the LINK program and f/u after pt's discharge home from [facility]. Pt was resting and did not rouse easily; SW willattempt contact with pt's son by phone. Haydee Mccloud LINK Navigator [email or web address] * Progress Notes - Brooke Bueno - 06/06/2025 12:42 PM EDT Patient discharged prior to LINK enrollment decision. Referred to HRCM for post- discharge support. Brooke Bueno Middle Card Tender Population Health documented in this encounter Plan of Treatment Upcoming Encounters Date Type Department Care Team (Late st Contact Info) Description 07/05/2025 1:00 PM EDT Consult [facility] Urology [address] [place] [address] Sobia Goldberg PA [address] [place] [address] 07/05/2025 2:00 PM EDT Appointment [facility] H Pulmonary Function Testing [address] [place] [address] 08/20/2025 12:00 PM EST Office Visit [facility] [place] [address], [address] [place] [address] Kaiden Harvey MD [address] [place] [address] Scheduled Referrals Name Type Priority Associated Diagnoses Orde r Schedule Ambulatory Referral to High Risk Care Management (HRCM) Outpatient Referral Routine Encounter for support and coordination of transition of care 1 Occurrences starting 06/11/2025 until 12/13/2026 documented as of this encounter Visit Diagnoses Diagnosis Encounter for support and coordination of transition of care- Primary documented in this encounter Additional Health Concerns Assessment Noted Time A Body Mass Index follow-up plan has been documented for the patient 06/10/2025 2:59 PM EDT documented as of this encounter Care Teams Sole Layer Hand Relationship Specialty Start Date End Date Rosemarie Riley APRN [address] [place] [address] PCP - General 04/02/25 Haydee Mccloud Waiter/Waitress Dining Car Municipal [address] Magistrate 06/03/25 documented as of this encounter
--- OUTSIDE RECORDS SUMMARY | 2025-06-23 11:45 | XMS_ITS | Encounter Summary ---
Author Organization [facility] Address [address] [place] [address] Care Team Providers Care Grain Buyer Name Role Phone RileyRosemarie beach STEVE Primary Care Provider [phone] Haydee Mccloud Unavailable Unavailable Baylee Gracia Unavailable Unavailable Reason for Visit * Reason Comments TCM Encounter Details Date Type Department Care Team (Late st Contact Info) Description 06/17/2025 Patient Outreach [facility] [address], [address] [place] [address] Baylee Gracia TCM Social History [...] and Family Not on file 06/25/2024 Attends [employer] Services Not on file 06/25 Active Member [...] any time in the past 12 m [facility], were you homeless or living in a [facility] (including now)? No 06/03/2025 [facility] Utilities Answer Date Recorded In the past [...] drink first t jacqueline in the morning (EYE-TEACHING DIETITIAN) to steady your nerves or to get [...] Progress Notes - Baylee Gracia - 06/17/2025 12:40 PM EDT Admit Date: 06/01/2025 Discharge Date: 06/10/2025 Hospital Service: Internal Medicine Discharge Diagnosis: Acute Hypoxic Resp Failure, PE, ESRD 06/17/2025 TCM call # 3 Patient Reached: Yes Outcome: Successful Action: Completed assessment, medication review, pain interventions discussed, SDOH Medication changes: N/a LEANN appointment: Jun 26, 2025 per Son. (Driving again so not exact sure of time at this time of call) Items to address at LEANN: Pain needs, specialist follow up. RN reached out to discharge provider for a few more pain tablets due to patient seeing pain management tomorrow and almost being out of medication. RN was worried patient would go back to ER if medication ran out before she was seen. RN confirmed with Dr. Becker in [facility] she is being seen on 06/18/2025. Rn provided pain interventions for patient and son. RN to fu with patient for HRCM needs. documented in this encounter Plan of Treatment Upcoming Encounters Date Type Department Care Team (Late st Contact Info) Description 07/05/2025 1:00 PM EDT Consult [facility] [address] [place] [address] Sobia Goldberg PA [address] [place] [address] 07/05/2025 2:00 PM EDT Appointment PAV H Pulmonary Function Testing [address] [place] [address] 08/20/2025 12:00 PM EST Office Visit [facility] [place] [address] [facility], [address] [place] [address] Kaiden Harvey MD [address] [place] [address] documented as of this encounter Visit Diagnoses Not on filedocumented in this encounter Additional Health Concerns Assessment Noted Time A Body Mass Index follow-up plan has been documented for the patient 06/10/2025 2:59 PM EDT documented as of this encounter Care Teams Grain Buyer Relationship Specialty Start Date End Date Rosemarie Riley APRN [address] [place] [address] PCP - General 04/02/25 Haydee Mccloud Bladder Changer Heel Sewer 06/03/25 Baylee Gracia Registered Nurse 06/12/25 documented as of this encounter
--- OUTSIDE RECORDS SUMMARY | 2025-06-23 11:45 | XMS_ITS | Encounter Summary ---
Author Organization Healthcare Address [address] [place] [address] Care Team Providers Care Wound/Ostomy Clinical Nurse Specialist Name Role Phone Rosemarie Riley APRN Primary Care Provider [phone] Reason for Referral * Consultation (Routine) - Closed Specialty Diagnoses / Procedures Referred By Contshakeel t Referred To Contact Hematology and Oncology / Urology Diagnoses Renal mass Tiny Summers MD [address] [place] [address] Phone: tel: fax: [facility] [address], [address] [place] [address] Phone: tel: fax: Referral ID Status Reason Start Date Expiration Date V isits Requested Visits Authorized [id number] Closed Specialty Services Required 05/13/2025 11/12/2026 1 1 Scheduling Instructions Renal mass suspicious for RCC Encounter Details Date Type Department Care Team (Late st Contact Info) Description 05/13/2025 Orders Only [facility] [address] [facility], [address] [place] [address] Tiny Summers MD [address] [place] [address] Renal mass (Primary Dx) Social [...] and Family Not on file 06/25/2024 Attends [employer] Not on file 06/25 Active Member [...] place to sleep or slept in a assisted (including now)? No 06/25/2024 CAGE ASSESSMENT Answer [...] drink first t jacqueline in the morning (EYE-QUALITY ASSURANCE SPECIALIST) to steady your nerves or to get rid of a hangover? 0 06/21/2024 CAGE Questionnaire Score 0 024 Utilities Answer Date Recorded In the past 12 months has e electric, gas, oil, or water company [...] Info) Description 07/05/2025 1:00 PM EDT Consult [facility] Urology [address] [place] [address] Sobia Goldberg, RIGO [address] [facility] [address] [place] [address] 07/05/2025 2:00 PM EDT Appointment [facility] Pulmonary Function Testing [address] [place] [address] 08/20/2025 12:00 PM EST Office Visit [facility] [place] [address] [facility], [address] [place] [address] Kaiden Harvey MD [address] [facility] [address] [place] [address] Scheduled Referrals Name Type Priority [...] documented as of this encounter Care Teams Wound/Ostomy Clinical Nurse Specialist Relationship Specialty Start Date End Date Rosemarie Riley, ASSOCIATION EXECUTIVE [address] [place] [address] PCP - General 04/02/25 documented as of this encounter
--- OUTSIDE RECORDS SUMMARY | 2025-06-23 11:45 | XMS_ITS | Clinical Summary ---
Author Organization [employer] ([place], [place], [place], [place]) Address [address] [place] [address] Care Team Providers Care Gas Check Pad Maker Name Role Phone Osmani Becker MD Primary Care Provider [phone] Allergies Active Allergy Reactions Criticality Noted Date Comments Insulin Glargine Other (See Comments) NUMBNESS Lisinopril Other (See Comments) 02/02/2024 Cough Medications clopidogreL (PLAVIX) 75 mg tablet Take 1 tablet (75 mg total) by mouth daily. Active pantoprazole (PROTONIX) 20 MG tablet Take 1 tablet (20 mg total) by mouth daily. Active carvediloL (COREG) 25 MG tablet Take 1 tablet (25 mg total) by mouth 2 (two) times daily with breakfast and dinner. Active doxazosin (CARDURA) 2 MG tablet Take 1 tablet (2 mg total) by mouth 2 (two) times daily. Active oxyCODONE-acetam inophen (PERCOCET) 10-325 mg per tablet Take 1 tablet by mouth every 6 (six) hours as needed for pain. Active ezetimibe (ZETIA) 10 mg tablet Take 1 tablet (10 mg total) by mouth nightly. Active aspirin 325 MG tablet Take 1 tablet (325 mg total) by mouth daily. Active cloNIDine HCL (CATAPRES) 0.1 MG tablet Take 1 tablet (0.1 mg total) by mouth 2 (two) times daily as needed (sys greater than 180). Active isosorbide mononitrate (IMDUR) 60 MG 24 hr tablet Take 2 tablets (120 mg total) by mouth daily. Active valsartan (DIOVAN) 160 MG tablet Take 1 tablet (160 mg total) by mouth 2 (two) times daily. Active hydrALAZINE (APRESOLINE) 50 MG tablet Take 1.5 tablets (75 mg total) by mouth 4 (four) times daily. Active levothyroxine (SYNTHROID, LEVOTHROID) 75 MCG tablet Take 1 tablet (75 mcg total) by mouth Every morning on an empty stomach. Active acetaZOLAMIDE (DIAMOX) 250 MG tablet Take 1 tablet (250 mg total) by mouth 2 (two) times daily. Active amLODIPine (NORVASC) 5 MG tablet Take 1 tablet (5 mg total) by mouth daily. 30 tablet 4 06/21/20 25 furosemide (LASIX) 80 MG tablet Take 1 tablet (80 mg total) by mouth daily. 30 tablet 4 06/21/20 25 Active Problems Problem Noted Date Diagnosed Date Acute renal failure superimp osed on stage 4 chronic kidney disease, unspecified acute renal failure type 06/18/2024 Volume overload 06/18/2024 Acute on chronic anemia 06/17/2024 ESRD needing dialysis 06/02/2024 Acute respiratory failure with hypoxemia 024 Diabetes mellitus 04/15/2024 Hypertension 04/15/2024 Thyroid disease 04/15/2024 Pleural effusion 04/15/2024 Arthritis 04/15/2024 ESRD (end stage renal disease) on dialysis 02/02 Pancytopenia 02/03/2024 Hypertensive urgency 02/02/2024 Social History Tobacco Use Types Packs/Day Years Used Date Smoking Tobacco: Every Day Cigarettes Smokeless Tobacco: Never Tobacco Cessation:Ready to Q uit: Not Asked; Counseling Given: Not Answered Alcohol Use Standard Drinks/Week Comments Never 0 (1 standard drink = 0.6 oz pur e alcohol) Utilities Answer Date Recorded In the past 12 months, has t he [employer], gas, oil, or water [employer] threatened to shut off services in your home? No 06/17/2024 Interpersonal Safety Answer Date Record ed How often does anyone, abran ying family and friends, physically hurt you? Never 06/17/2024 How often does anyone, abran ying family and friends, insult or talk down to you? Never 06/17/2024 How often does anyone, abran ying family and friends, threaten you with harm? Never 06/17/2024 How often does anyone, abran ying family and friends, scream or curse at you? Never 06/17/2024 Housing Stability Answer Date Recorded What is your living situation today? I have a [facility] place to live 06/17/[address] you li ve. Do you have problems with any of the following? None of the above 06/17/2024 Food Insecurity Answer Date Recorded Within the past 12 months, y ou worried that your food would run out before you got money to buy more. Never true 06/17/2024 Within the past 12 months, t he food you bought just didn't last and you didn't have money to get more. Never true 06/17/2024 Transportation Needs Answer Date Record ed In the past 12 months, has l ack of reliable transportation kept you from medical appointments, meetings, work or from getting things needed for daily living? No 06/17/2024 Financial Resource Strain Answer Date R ecorded How hard is it for you to pa y for the very basics like food, housing, medical care, and heating? Would you say it is: Somewhat hard 06/17/2024 Employment Answer Date Recorded Do you want help finding or keeping work or a job? I do not need or want help 06/17/2024 Family and Community Support Answer Zackery e Recorded If for any reason you need h elp with day-to-day activities such as bathing, preparing meals, shopping, managing finances, etc., do you get the help you need? I get all the help I need 06/17/2024 Feeling Lonely or Isolated 0 06/17 Educational Attainment Answer Date Ruiz rded Do you speak a language other than Algerian at [facility]? No 06/17/2024 Do you want help with school or training? For example, starting or completing job training or getting a high school diploma, GED or equivalent. No 06/17/2024 Physical Activity Answer Date Recorded Number of minutes of exercise per week 0 06/17/2024 Self Management Answer Date Recorded Because of a physical, menta l, or emotional condition, do you have serious difficulty concentrating, remembering, or making decisions? (5 years or older) No 06/17/2024 Because of a physical, menta l, or emotional condition, do you have difficulty doing errands alone such as visiting a doctor's office or shopping? (15 years or older) No 06/17/2024 Substance Use Answer Date Recorded How many times in the past y ear have you used prescription drugs for non-medical reasons? Never 06/17/2024 How many times in the past year have you used il legal drugs? Never 06/17/2024 Mental Health Answer Date Recorded Calculation of above two rows 0 Comments No Sex and Gender Information Value Date Recorded Sex Assigned at Female 02/02/2024 4:23 PM CDT Legal Sex Female 4:04 PM CDT Gender Identity Female 02/02/2024 4:23 PM CDT Sexual Orientation Not on file Last Filed Vital Signs Vital Sign Reading Time Taken Comments Blood Pressure 199/82 06/21/2024 2:02 PM EDT Pulse 77 06/21/2024 1:18 PM EDT Temperature 36.8 C (98.2 F) 06/21/2024 1:18 PM EDT Respiratory Rate 20 06/21/2024 1:18 PM EDT Oxygen Saturation 96% 06/20/2024 8:35 AM EDT Inhaled Oxygen Concentration - - Weight 59 kg (130 lb) 06/16/2024 11:49 PM EDT Height 170.2 cm (5' 7 ) 06/16/2024 11:49 PM EDT Body Mass Index 20.36 06/16/2024 11:49 PM EDT Plan of Treatment Health Maintenance Due Date Last Done Comments CT Colonography 1969 Colonoscopy 1969 Colorectal Cancer Screening 1969 FOBT/FIT 1969 Fit-DNA (Cologuard) 1969 Sigmoidoscopy 1969 Diabetic Eye Exam 1979 Depression Screening (12+) 1981 HIV Screening 1984 DTAP/TDAP/TD VACCINES (1 - Tdap) 1988 Pneumococcal 50+ years (1 of 2 - PCV) 1988 Pap Smear 1990 Breast Cancer Screening 2009 Lipid Panel 2014 Medicare Initial AWV G0438 01/18/2018 Shingles Vaccine (Zoster) (1 of 2) 2019 Hemoglobin A1C 04/15/2024 COVID-19 VACCINE ( season) 2025 Influenza Vaccine (#1) 2025 Tobacco Cessation Counseling and Screening (12+) 06/17/2025 06/17/2024 Hepatitis C Screening Completed 06/03/2024, 024 Procedures Procedure Name Priority Date/Time Associated Diagnosis Comments HEPATITIS PANEL, ACUTE STAT 06/03/2024 12:25 PM EDT from Last 3 Months or Most Recently Relevant to Health Maintenance Results * Hepatitis panel, acute (06/03/2024 12:25 PM EDT) Hep A IgM Nonreactive Nonreactive, Equivocal 06/03/2024 2:09 PM EDT [facility] Hep B C IgM Nonreactive Nonreactive 06/03/2024 2:09 PM EDT [facility] Hepatitis B surface antigen Nonreactive Nonreactive, Equivocal 06/03/2024 2:09 PM EDT [facility] Hepatitis C Ab Nonreactive Nonreactive, Equivocal 06/03/2024 2:09 PM EDT [facility] Blood Venipuncture / Unknown 06/03/2024 12:25 PM EDT 06/03/2024 12:36 PM EDT [facility] - 06/03/2024 2:09 PM EDT Hepatitis A Antibody IgM: (a) A negative test result does not exclude the possibility of exposure to the hepatitis A virus. (b) This test can be used to determine if a patient has or recently had an acute or asymptomatic hepatitis A infection. (c) A reactive result does not exclude co-infection by another hepatitis virus. Biotin supplements can cause clinically significant incorrect lab results. The FDA has seen an increase in the number of adverse events related to biotin interference with lab tests. Hepatitis B Core Antibody IgM: A reactive anti-HBc IgM result does not exclude co-infection by another hepatitis virus. Biotin supplements can cause clinically significant incorrect lab results. The FDA has seen an increase in the number of adverse events related to biotin interference with lab tests. Hepatitis B Surface Antibody Qual: This test does not differentiate between a vaccine induced immune response and an immune response induced by infection with HBV. Individuals that have received blood component therapies, (e.g. whole blood, plasma, immunoglobulin) administered during the previous 3 to 6 months may have a false reactive anti HBs due to passive transfer of anti HBs. A positive anti HBs result does not exclude co infection by another hepatitis virus. Biotin supplements can cause clinically significant incorrect lab results. The FDA has seen an increase in the number of adverse events related to biotin interference with lab tests. Hepatitis B Surface Antigen: This test may not detect all HBV mutants. If acute or chronic HBV infection is suspected and this test is non-reactive other HBV markers should be tested. Biotin supplements can cause clinically significant incorrect lab results. The FDA has seen an increase in the number of adverse events related to biotin interference with lab tests. Hepatitis C Antibody: A negative test result does not exclude the possibility of exposure to the hepatitis C virus and a reactive result does not exclude co-infection by another hepatitis virus. Biotin supplements can cause clinically significant incorrect lab results. The FDA has seen an increase in the number of adverse events related to biotin interference with lab tests. Blaine Moreno MD LAB BLOOD ORDERABLES Final Resul t [facility] [address] [phone] from Last 3 Months or Most Recently Relevant to Health Maintenance Insurance [id number] (Home) [address] [place] [address] GENERIC MEDICARE REPLACEMENT MEDICARE PART A B Advance Directives For more information, please contact: [phone] * Full Code (Latest Code Status on File) Date Activated Date Inactivated Comments 06/17/2024 1:40 AM 06/21/2024 4:51 PM * Full Code Date Activated Date Inactivated Comments 06/02/2024 5:14 PM 06/06/2024 1:25 PM * Full Code Date Activated Date Inactivated Comments 04/15/2024 1:36 AM 04/16/2024 12:42 PM * Full Code Date Activated Date Inactivated Comments 02/02/2024 4:52 PM 02/04/2024 12:57 PM Care Teams Gas Check Pad Maker Relationship Specialty Start Date End Date Osmani Becker MD [address] [place] [address] [place] [address] PCP - General General Internal Medicine 02/02/24
--- OUTSIDE RECORDS SUMMARY | 2025-06-23 11:45 | XMS_ITS | Encounter Summary ---
Author Organization [facility] Address [address] [place] [address] Care Team Providers Care Skip Operator Name Role Phone RileyRosemarie beach Shanel WILSON Primary Care Provider [phone] Encounter Details Date Type Department Care Team (Late st Contact Info) Description 05/21/2025 Telephone [facility] [address], [address] [place] [address] Clarice Zhou I, RN [facility]IC Social History Tobacco Use Types [...] drink first t jacqueline in the morning (EYE-ACCOUNTS PAYABLE ASSISTANT) to steady your nerves or to get [...] Info) Description 07/05/2025 1:00 PM EDT Consult [facility] [address] [place] [address] Sobia Goldberg PA [address] [place] [address] 07/05/2025 2:00 PM EDT Appointment [facility] Pulmonary Function Testing [address] [place] [address] 08/20/2025 12:00 PM EST Office Visit [facility] [place] [address] [facility], [address] [place] [address] Kaiden Harvey MD [address] [facility] [address] [place] [address] documented as of this encounter Visit Diagnoses Not on filedocumented in this encounter Additional Health Concerns Assessment Noted Time A Body Mass Index follow-up plan has been documented for the patient 06/30/2024 1:58 PM EDT documented as of this encounter Care Teams Skip Operator Relationship Specialty Start Date End Date Rosemarie Riley APRN [address] [place], [place] [id number] PCP - General 04/02/25 documented as of this encounter
--- OUTSIDE RECORDS SUMMARY | 2025-06-23 11:45 | XMS_ITS | Encounter Summary ---
Author Organization [facility] Address [address] [place] [address] Care Team Providers Care Wholesale And Retail Merchant Name Role Phone RileyRosemarie beach Shanel WILSON Primary Care Provider [phone] Encounter Details Date Type Department Care Team (Late st Contact Info) Description 05/15/2025 Telephone [facility] [address] [place] [address] Clarice Zhou I, RN [facility] CL[facility] Social History Tobacco Use Types [...] and Family Not on file 06/25/2024 Attends [employer] Not on file 06/25 Active Member [...] drink first t jacqueline in the morning (EYE-WATER PROJECT ENGINEER) to steady your nerves or to [...] Info) Description 07/05/2025 1:00 PM EDT Consult [facility] [address] [place] [address] Sobia Goldberg PA [address] [place] [address] 07/05/2025 2:00 PM EDT Appointment [facility] Pulmonary Function Testing [address] [place] [address] 08/20/2025 12:00 PM EST Office Visit [facility] [place] [address] [facility] [place] [address] Kaiden Harvey MD [address] [facility] [address] [place] [address] documented as of this encounter Visit Diagnoses Not on filedocumented in this encounter Additional Health Concerns Assessment Noted Time A Body Mass Index follow-up plan has been documented for the patient 06/30/2024 1:58 PM EDT documented as of this encounter Care Teams Wholesale And Retail Merchant Relationship Specialty Start Date End Date Rosemarie Riley APRN [address] [place], [place] [id number] PCP - General 04/02/25 documented as of this encounter
--- OUTSIDE RECORDS SUMMARY | 2025-06-23 11:46 | XMS_ITS | Referral Summary ---
Author Organization [email or web address] ([place], [place], [place], [place]) Address [address] [place] [address] Care Team Providers Care Food General Manager Name Role Phone Osmani Becker MD Primary Care Provider [phone] Allergies Active Allergy Reactions Criticality Noted Date [...] the past 12 months, has t he [employer], gas, oil, or water [employer] threatened to shut off services in your [...] Do you speak a language other than Ukrainian at [facility]? No 06/17/2024 [...] Mass Index 20.36 06/16/2024 11:49 PM EDT Functional Status * Are you deaf or do you have serious difficulty hearing? Answer Date of Assessment Author No 02/03/2024 1:06 PM CDT Traci Candelaria RN * Are you blind or do you have serious difficulty seeing, even when wearing glasses? Answer Date of Assessment Author No 02/03/2024 1:06 PM MISTYT Traci Candelaria RN * Do you have serious difficulty walking or climbing stairs? Answer Date of Assessment Author No 02/03/2024 1:06 PM MSITYT Traci Candelaria RN * Do you have serious difficulty dressing or bathing? Answer Date of Assessment Author No 02/03/2024 1:06 PM MISTYT Traci Candelaria RN * Because of a physical, mental, or emotional condition, do you have serious difficulty doing errandsalone such as visiting the doctor? Answer Date of Assessment Author No 02/03/2024 1:06 PM Traci Fowler RN Mental Status * Because of a physical, mental, or emotional condition, do you have serious difficulty concentrating, remembering, or making decisions? (5 years old or older) Answer Entry Date Author No 02/03/2024 1:06 PM Traci Fowler RN Plan of Treatment Not on file Procedures Procedure Name Priority Date/Time Associated Diagnosis Comments HEPATITIS PANEL, ACUTE STAT 06/03/2024 12:25 PM EDT from Last 3 Months or Most Recently Relevant to Health Maintenance Results * Hepatitis panel, acute (06/03/2024 12:25 PM EDT) Hep A IgM Nonreactive Nonreactive, Equivocal 06/03/2024 2:09 PM EDT [facility] Hep B C IgM Nonreactive Nonreactive 06/03/2024 2:09 PM EDT [facility] Hepatitis B surface antigen Nonreactive Nonreactive, Equivocal 06/03/2024 2:09 PM EDT [facility] Hepatitis C Ab Nonreactive Nonreactive, Equivocal 06/03/2024 2:09 PM EDT [facility] Blood Venipuncture / Unknown 06/03/2024 12:25 PM EDT 06/03/2024 12:36 PM EDT [facility] - 06/03/2024 2:09 PM EDT [...] MD LAB BLOOD ORDERABLES Final Resul t [facility] [address] [phone] from Last 3 Months or Most Recently Relevant to Health Maintenance Insurance [id number] (Home) [address] [place] [address] GENERIC MEDICARE REPLACEMENT MEDICARE PART A B Advance Directives For more information, please contact: [phone] * Full Code (Latest Code Status on File) Date Activated Date Inactivated Comments 06/17/2024 1:40 AM 06/21/2024 4:51 PM * Full Code Date Activated Date Inactivated Comments 06/02/2024 5:14 PM 06/06/2024 1:25 PM * Full Code Date Activated Date Inactivated Comments 04/15/2024 1:36 AM 04/16/2024 12:42 PM * Full Code Date Activated Date Inactivated Comments 02/02/2024 4:52 PM 02/04/2024 12:57 PM Care Teams Food General Manager Relationship Specialty Start Date End Date Osmani Becker MD [address] [place] [address] [place] [address] PCP - General General Internal Medicine 02/02/24
--- OUTSIDE RECORDS SUMMARY | 2025-06-23 11:46 | XMS_ITS | Clinical Summary ---
Author Organization [facility] Address [address] [place] [address] Care Team Providers Care Computer Art Instructor Name Role Phone RileyRosemarie beach Shanel WILSON Primary Care Provider [phone] Haydee Mccloud Unavailable Unavailable Baylee Gracia Unavailable Unavailable Allergies Active Allergy Reactions Criticality Noted Date Comments Insulin Glargine Other - please docum ent in the comment field Low 06/21/2024 Lisinopril Cough,Unknown - Diamond ent states they do not know rxn details Low 07/18/2012 Cough Medications atorvastatin (Lipitor) 80 MG tablet Take 1 tablet by mouth nightly. Active pantoprazole (ProtoNix) 20 MG EC tablet Take 1 tablet by mouth daily before breakfast. Do not crush, chew, or split. Active ezetimibe (Zetia) 10 MG tablet Take 1 tablet (10 mg) by mouth 1 (one) time each day. 2 tablet 07/03/20 24 Active doxazosin (Cardura) 2 MG tablet Take 1 tablet by mouth daily. Active isosorbide mononitrate ER (Imdur) 60 MG 24 hr tablet Take 2 tablets by mouth daily. Do not crush or chew. Active amLODIPine (Norvasc) 10 MG tablet Take 1 tablet by mouth daily. Active escitalopram (Lexapro) 10 MG tablet Take 1 tablet by mouth daily. Active calcitriol (Rocaltrol) 0.25 MCG capsule 1 tablet give at every dialysis treatment Active Methoxy PEG-Epoetin Beta (Mircera) 200 MCG/0.3ML solution prefilled syringe Inject as directed. 200 mcg given at dialysis every 14 days Active naloxone (Narcan) 4 mg/0.1 mL nasal spray 1. Give 1 spray in nostril for no/slow breathing or cannot wake after opioid use 2. Call 911 3. Repeat in other nostril if symptoms continue 1 each 06/10/20 Active carvedilol (Coreg) 12.5 MG tablet Take 1 tablet by mouth 2 times a day with meals. 60 tablet 06/10/20 25 Active hydrALAZINE (Apresoline) 25 MG tablet Take 3 tablets by mouth 3 times a day. 270 tablet 06/10/20 Active levothyroxine (Synthroid, Levoxyl) 88 MCG tablet Take 1 tablet by mouth daily before breakfast. 30 tablet 06/11/20 25 Active aspirin 81 MG chewable tablet Chew 1 tablet daily. 30 tablet 06/11/20 Active albuterol 108 (90 Base) MCG/ACT inhaler Inhale 2 puffs every 6 (six) hours if needed for shortness of breath. Discontinued(En tered in Error) clopidogrel (Plavix) 75 MG tablet Take 1 tablet by mouth daily. Discontinued(St op Taking at Discharge) oxyCODONE-aceta minophen (Percocet) 10-325 MG tablet Take 1 tablet by mouth every 6 hours as needed for severe pain. Discontinued topiramate (Topamax) 25 MG tablet Take 1 tablet (25 mg) by mouth every night. Discontinued(En tered in Error) cloNIDine (Catapres) 0.1 MG tablet Take 1 tablet (0.1 mg) by mouth 2 (two) times a day if needed. If systolic blood pressure is greater than 180 025 Discontinued(En tered in Error) lactulose (Chronulac) 10 GM/15ML solution Take 15 mL (10 g) by mouth 1 (one) time each day if needed (constipatio n). Discontinued(En tered in Error) ergocalciferol (Vitamin D-2) 1.25 MG (79210 UT) capsule Take 1 capsule (50,000 Units) by mouth every 14 (fourteen) days. Discontinued(En tered in Error) NIFEdipine XL (Procardia XL) 90 MG 24 hr tablet Take 1 tablet (90 mg) by mouth 1 (one) time each day. Do not crush, chew, or split. 30 tablet 07/01/20 025 Discontinued(En tered in Error) hydrALAZINE (Apresoline) 100 MG tablet Take 1 tablet (100 mg) by mouth 3 (three) times a day. 90 tablet 06/30/20 025 Discontinued(En tered in Error) carvedilol (Coreg) 25 MG tablet Take 1 tablet (25 mg) by mouth 2 (two) times a day with meals. 2 tablet 07/03/20 025 Discontinued(St op Taking at Discharge) doxazosin (Cardura) 2 MG tablet Take 1 tablet (2 mg) by mouth every night. 2 tablet 07/03/20 025 Discontinued(En tered in Error) isosorbide mononitrate ER (Imdur) 60 MG 24 hr tablet Take 2 tablets (120 mg) by mouth 1 (one) time each day in the morning for 2 days. Do not crush or chew. 4 tablet 07/03/20 025 Discontinued(En tered in Error) levothyroxine (Synthroid, Levoxyl) 75 MCG tablet Take 1 tablet (75 mcg) by mouth 1 (one) time each day before breakfast. 2 tablet 07/03/20 025 Discontinued(St op Taking at Discharge) valsartan (Diovan) 80 MG tablet Take 1 tablet (80 mg) by mouth 2 (two) times a day for 2 days. 4 tablet 07/03/20 025 Discontinued(En tered in Error) hydrALAZINE (Apresoline) 50 MG tablet Take 1.5 tablets by mouth 4 times a day. 025 Discontinued(St op Taking at Discharge) acetaZOLAMIDE (Diamox) 250 MG tablet Take 1 tablet by mouth 4 times a day. 025 Discontinued(St op Taking at Discharge) aspirin (Ecotrin) 325 MG EC tablet Take 1 tablet by mouth daily. 025 Discontinued sodium chloride 0.9 % solution 50 mL with iron sucrose 20 MG/ML solution 15 mg Infuse 15 mg into a venous catheter 1 time per week. 025 Discontinued(St op Taking at Discharge) oxyCODONE-aceta minophen (Percocet) 10-325 MG tablet Take 1 tablet by mouth every 8 hours as needed for severe pain for up to 7 days. 21 tablet 06/10/20 25 025 Discontinued(Re order) oxyCODONE-aceta minophen (Percocet) 10-325 MG tablet Take 1 tablet by mouth every 8 hours as needed for severe pain for up to 1 day. 3 tablet 06/17/20 25 025 Active Problems Problem Noted Date Diagnosed Date CAD (coronary artery disease) 06/10/2025 Anemia 06/10/2025 Severe protein-calorie malnutrition 06/10/2025 HTN (hypertension) 06/10/2025 HLD (hyperlipidemia) 06/10/2025 Hypothyroidism 06/10/2025 Mood disorder 06/10/2025 History of glaucoma 06/10/2025 Chronic obstructive pulmonar y disease with acute exacerbation 06/10/2025 CHF (congestive heart failure) 06/02/2025 Assessment & Plan (06/02/2025 12:51 AM EDT): -Vitals: Notably bradycardic and desaturated requiring 2 [...] dosing as home dosing makes patient altered ESRD (end stage renal disease) 06/22/2024 Assessment & Plan (06/02/2025 12:51 AM EDT): -Vitals: Notably bradycardic and desaturated requiring 2 [...] dosing as home dosing makes patient altered Resolved Problems Problem Noted Date Diagnosed Date Resolved Date Acute encephalopathy 06/10/2025 025 Pleural effusion 06/02/2025 06/10/2025 Assessment & Plan (06/02/2025 12:51 AM EDT): -Vitals: Notably bradycardic and desaturated requiring 2 [...] dosing as home dosing makes patient altered Acute hypoxic respiratory failure 06/02/2025 06/10/2025 Assessment & Plan (06/02/2025 12:51 AM EDT): -Vitals: Notably bradycardic and desaturated requiring 2 [...] dosing as home dosing makes patient altered Acute pulmonary edema 06/02/20252024 GI bleed 06/02/2025 06/10/2025 Volume overload 06/21/2024 06/10/2025 Encounters Date Type Department Care Team Description 06/19/2025 Patient Outreach [address], [address] [place] [address] Baylee Gracia [facility] 06/17/2025 Orders Only [facility] Medicine Virtual Dept. [address] [place] [address] Mayra Rogers MD 06/17/2025 Patient Outreach [address], [address] [place] [address] Baylee Gracia [facility] 06/17/2025 Patient Outreach [address], [address] [place] [address] Baylee Gracia [facility] 06/13/2025 Patient Outreach [address], [address] [place] [address] Baylee Gracia TCM 06/12/2025 Patient Outreach [facility] [address] [place] [address] Baylee Gracia [facility] 06/12/2025 Referral Triage [facility] [address] [place] [address] Baylee Gracia 06/10/2025 Travel 06/07/2025 Travel 06/06/2025 Patient Outreach [facility] [address] [place] [address] Haydee Mccloud Link 06/06/2025 Travel 06/04/2025 Travel 06/03/2025 Patient Outreach [facility] [address], [address] [place] [address] Wendie De Leon Link 06/03/2025 Patient Outreach [facility] [address] [place] [address] Haydee Mccloud Link 06/02/2025 Travel 06/01/2025 4:48 PM EDT - 06/10/2025 4:54 PM EDT Hospital Encounter [facility] Inpatient [address] [place] [address] Faiza Nye MD Buckingham, Bradley P, MD Doty, Christopher I, MD Vick, Sarah E, MD Acute pulmonary edema (CMS/HCC) (Primary Dx); End-stage [...] artery disease involving coronary bypass graft of jackson heart without angina pectoris; History of glaucoma; Chronic congestive heart failure, unspecified heart failure type (CMS/[facility]) Discharge Disposition: Home or Self Care 06/01/2025 Travel 05/21/2025 Telephone [facility] Urology [address], [address] [place] [address] Clarice Zhou I, RN 05/15/2025 Telephone [facility] Urology [address] [place] [address] Clarice Zhou I, CHAO 05/13/2025 Orders Only [facility] Nephrology, Bone & Mineral Metabolism [address], [address] [place] [address] Tiny Summers MD Renal mass (Primary Dx) 05/06/2025 1:27 PM EDT - 05/06/2025 8:09 PM EDT Emergency [facility] Emergency Department [address] [place] [address] Sena Navarro MD Renal mass (Primary Dx); ESRD (end stage renal disease) ([facility]) Discharge Disposition: Home or Self Care 05/06/2025 Travel 05/05/2025 4:00 PM EDT - 05/05/2025 6:01 PM EDT Emergency [facility] Emergency Department [address] [place] [phone] Neno Elizabeth MD ESRD (end stage renal disease) on dialysis ([facility]) (Primary Dx); Elevated TSH; Hyperphosphatemia Discharge [...] any time in the past [address] [facility], were you homeless or living in a detention (including now)? No 06/03/2025 [facility] Utilities Answer Date Recorded In [...] drink first t jacqueline in the morning ([employer]) to steady your nerves or to get rid of a hangover? 0 06/21/2024 CAGE Questionnaire Score 0 024 Comments Unknown Sex and Gender Information Value Date Recorded Sex Assigned at Female 07/03/2024 2:13 PM EDT Legal Sex Female 7:39 PM EDT Gender Identity Not on file Sexual Orientation Not on file Last Filed [...] Mass Index 19.85 06/01/2025 3:35 PM EDT Plan of Treatment Upcoming Encounters Date Type Department Care Team (Late st Contact Info) Description 07/05/2025 1:00 PM EDT [facility] [address] [place] [address] Sobia Goldberg PA [address] [place] [phone] 07/05/2025 2:00 PM EDT Appointment [facility] Pulmonary Function Testing [address] [place] [address] 08/20/2025 12:00 PM EST Office Visit [facility] [place] [address], [address] [place] [address] Kaiden Harvey MD [address] [place] [address] Health Maintenance Due Date Last Done Comments [facility]-Depression Screening 1969 [facility]-Medicare Annual Wellness (AWV) 1969 [facility]-/Child/Adol SDOH Screenings 1970 [id number] Vaccine (#1) 1974 Diabetes: Dental Exam 1979 [facility]-Pneumococcal Vaccine: 50+ Years (1 of 2 - PCV) 1988 [facility]-Hepatitis B Vaccines (2 of 5 - Risk Dialysis 4-dose series) 06/01/2007 05/04/2007 CT Colonography 2014 Colonoscopy 2014 FIT-DNA 2014 FIT 2014 FOBT 2014 Sigmoidoscopy 2014 [facility]-Colorectal Cancer Screening 2014 [facility]-Breast Cancer Screening 2019 [facility]-Zoster Vaccines (1 of 2) 2019 [facility]-Diabetes: Hemoglobin A1C 12/28/2024 06/30/2024 [facility]-Influenza Vaccine (#1) 05/20/202506/25, 09/27/2012, 10/30/2010 [facility]- SDOH Screenings 12/01/2025 [facility]-Adult SDOH Screenings 12/01/2025 06/03/2025 [facility]-DTaP,Tdap,and Td Vaccines (2 - Td or Tdap) 05/31/2035 05/31/2025, 03/06/2016 [facility]-HIV Screening Completed 06/21/2024 [facility]-Hepatitis C Screening Completed 2024, 05/06/2025, 06/24/2024, Additional history exists HPV Vaccines Aged Out No longer eligi [...] on patient's age to complete this topic Goals Goal Patient Goal Type Associated Problems Recent Progress Patient-Stated? Author Patient will verbalize understanding of how heart failure affects the body Care Plan Heart Failure diagnosis knowledge deficit No Baylee Gracia Patient will verbalize understanding of how other conditions affect the heart Care Plan Heart Failure diagnosis knowledge deficit No Baylee Gracia Patient will be able to identify signs and symptoms of fluid retention Care Plan Fluid retention / overload No Baylee Gracia Patient will maintain management of sodium consumption Care Plan Sodium intake No Baylee Gracia Consistently take heart failure medication as prescribed Care Plan Heart failure medication adherence No Baylee Gracia Patient will engage in physical activity safely Care Plan Exercise regimen No Baylee Gracia Patient will not experience any symptoms of shortness of breath or body swelling over the next 3 months Care Plan Heart failure maintenance No Baylee Gracia Patient will verbalize understanding of heart failure progression Care Plan Heart failure progression and care needs No Baylee Gracia Procedures Procedure Name Priority Date/Time Associated Diagnosis Comments HEMODIALYSIS INPATIENT Routine 06/10/2025 9:13 AM EDT CBC WITH AUTO DIFFERENTIAL STAT 06/10/2025 4:24 AM EDT COMPREHENSIVE METABOLIC PANEL, PLASMA STAT 06/10/2025 4:24 AM EDT MAGNESIUM, PLASMA STAT 06/10/2025 4:2 4 AM EDT PHOSPHORUS, PLASMA STAT 06/10/2025 4: 24 AM EDT CBC WITH AUTO DIFFERENTIAL STAT 06/09/2025 4:35 AM EDT COMPREHENSIVE METABOLIC PANEL, PLASMA STAT 06/09/2025 4:35 AM EDT MAGNESIUM, PLASMA STAT 06/09/2025 4:3 5 AM EDT PHOSPHORUS, PLASMA STAT 06/09/2025 4: 35 AM EDT CBC WITH AUTO DIFFERENTIAL STAT 06/08/2025 4:05 AM EDT COMPREHENSIVE METABOLIC PANEL, PLASMA STAT 06/08/2025 4:05 AM EDT MAGNESIUM, PLASMA STAT 06/08/2025 4:0 5 AM EDT PHOSPHORUS, PLASMA STAT 06/08/2025 4: 05 AM EDT HEMODIALYSIS INPATIENT Routine 06/07/2025 7:26 AM EDT CBC WITH AUTO DIFFERENTIAL STAT 06/07/2025 5:07 AM EDT COMPREHENSIVE METABOLIC PANEL, PLASMA STAT 06/07/2025 5:07 AM EDT MAGNESIUM, PLASMA STAT 06/07/2025 5:0 7 AM EDT PHOSPHORUS, PLASMA STAT 06/07/2025 5: 07 AM EDT CBC WITH AUTO DIFFERENTIAL STAT 06/06/2025 2:49 AM EDT COMPREHENSIVE METABOLIC PANEL, PLASMA STAT 06/06/2025 2:49 AM EDT MAGNESIUM, PLASMA STAT 06/06/2025 2:4 9 AM EDT PHOSPHORUS, PLASMA STAT 06/06/2025 2: 49 AM EDT POCT GLUCOSE METER UNSOLICITED RESULTS Routine 06/05/2025 11:54 AM EDT POCT GLUCOSE METER UNSOLICITED RESULTS Routine 06/05/2025 10:42 AM EDT POCT GLUCOSE METER UNSOLICITED RESULTS Routine 06/05/2025 9:42 AM EDT POCT GLUCOSE METER UNSOLICITED RESULTS Routine 06/05/2025 9:06 AM EDT POCT GLUCOSE METER UNSOLICITED RESULTS Routine 06/05/2025 4:57 AM EDT POCT GLUCOSE METER UNSOLICITED RESULTS Routine 06/05/2025 3:59 AM EDT ACUTE HEPATITIS PANEL Routine 06/05/2025 2:21 AM EDT HEPATITIS B SURFACE ANTIBODY, QUANTITATIVE Routine 06/05/2025 2:21 AM EDT CBC WITH AUTO DIFFERENTIAL STAT 06/05/2025 2:21 AM EDT COMPREHENSIVE METABOLIC PANEL, PLASMA STAT 06/05/2025 2:21 AM EDT MAGNESIUM, PLASMA STAT 06/05/2025 2:2 1 AM EDT PHOSPHORUS, PLASMA STAT 06/05/2025 2: 21 AM EDT HEMODIALYSIS INPATIENT Routine 06/04/2025 2:57 PM EDT IR ANGIOGRAM ARTERIOVENOUS SHUNT Routine 06/04/2025 2:31 PM EDT ESRD (end stage renal disease) ([facility]) Unspecified complication of cardiac and vascular prosthetic device, implant and graft, subsequent encounter CBC WITH AUTO DIFFERENTIAL STAT 06/04/2025 2:56 AM EDT COMPREHENSIVE METABOLIC PANEL, PLASMA STAT 06/04/2025 2:56 AM EDT MAGNESIUM, PLASMA STAT 06/04/2025 2:5 6 AM EDT PHOSPHORUS, PLASMA STAT 06/04/2025 2: 56 AM EDT HEMOGLOBIN AND HEMATOCRIT, BLOOD Timed 06/03/2025 12:43 PM EDT CBC WITH AUTO DIFFERENTIAL STAT 06/03/2025 4:51 AM EDT COMPREHENSIVE METABOLIC PANEL, PLASMA STAT 06/03/2025 4:51 AM EDT MAGNESIUM, PLASMA STAT 06/03/2025 4:5 1 AM EDT PHOSPHORUS, PLASMA STAT 06/03/2025 4: 51 AM EDT HEMOGLOBIN AND HEMATOCRIT, BLOOD Routine 06/02/2025 5:50 PM EDT WOUND OSTOMY EVAL AND TREAT Routine 06/02/2025 12:27 PM EDT VAS US HEMODIALYSIS ACCESS DUPLEX STAT 06/02/2025 10:03 AM EDT ECHO, ADULT TRANSTHORACIC COMPLETE STAT 06/02/2025 7:40 AM EDT FREE T4, PLASMA Routine 06/02/2025 4:07 AM EDT TSH REFLEX FT4 Add-On 06/02/2025 4:07 AM EDT CBC WITH AUTO DIFFERENTIAL STAT 06/02/2025 4:07 AM EDT COMPREHENSIVE METABOLIC PANEL, PLASMA STAT 06/02/2025 4:07 AM EDT MAGNESIUM, PLASMA STAT 06/02/2025 4:0 7 AM EDT PHOSPHORUS, PLASMA STAT 06/02/2025 4: 07 AM EDT SARS-COV-2, FLU A, FLU B, AND RSV - RAPID STAT 06/01/2025 6:53 PM EDT BLOOD CULTURE (AEROBIC/ANAEROBIC SET) STAT 06/01/2025 6:52 PM EDT BLOOD CULTURE (AEROBIC/ANAEROBIC SET) STAT 06/01/2025 6:52 PM EDT XR CHEST 1 VIEW STAT 06/01/2025 5:10 PM EDT ECG ADULT STAT 06/01/2025 4:57 PM EDT N-TERMINAL PROBNP, PLASMA STAT Add-on 06/01/2025 4:47 PM EDT BLOOD GAS PANEL, VENOUS STAT 06/01/2025 4:47 PM EDT PHOSPHORUS, PLASMA STAT 06/01/2025 4: 47 PM EDT MAGNESIUM, PLASMA STAT 06/01/2025 4:4 7 PM EDT CBC W/O DIFFERENTIAL STAT 06/01/2025 4:47 PM EDT COMPREHENSIVE METABOLIC PANEL, PLASMA STAT 06/01/2025 4:47 PM EDT HEMODIALYSIS INPATIENT Routine 05/06/2025 4:35 PM EDT QUANTIFERON TB GOLD PLUS [...] Recently Relevant to Health Maintenance Results * (ABNORMAL) CBC and Differential (06/10/2025 4:24 AM EDT) Only the most recent of11 resultswithin the time period is included. WBC Count 7.28 3.70 - 10.30 10*3/uL LAB HEMATOLOGY METHOD 06/10/2025 4:48 AM EDT [facility] RBC Count 3.10(L) 3.90 - 5.20 10*6/uL LAB HEMATOLOGY METHOD 06/10/2025 4:48 AM EDT [facility] HGB 8.1(L) 11.2 - 15.7 g/dL LAB HEMATOLOGY METHOD 06/10/2025 4:48 AM EDT [facility] HCT 29.1(L) 34.0 - 45.0 % LAB HEMATOLOGY METHOD 06/10/2025 4:48 AM EDT [facility] Platelet Count 64(L) 155 - 369 10*3/uL LAB HEMATOLOGY METHOD 06/10/2025 4:48 AM EDT [facility] MCV 94 79 - 98 fL LAB HEMATOLOGY METHOD 06/10/2025 4:48 AM EDT [facility] MCH 26.1 26.0 - 32.0 pg LAB HEMATOLOGY METHOD 06/10/2025 4:48 AM EDT [facility] MCHC 27.8(L) 30.7 - 35.5 g/dL LAB HEMATOLOGY METHOD 06/10/2025 4:48 AM EDT [facility] RDW 16.0(H) 11.5 - 14.5 % LAB HEMATOLOGY METHOD 06/10/2025 4:48 AM EDT [facility] MPV 12.1 8.8 - 12.5 fL LAB HEMATOLOGY METHOD 06/10/2025 4:48 AM EDT [facility] nRBC 0.0 <=0.0 per 100 WBCs LAB HEMATOLOGY METHOD 06/10/2025 4:48 AM EDT [facility] Differential Type Automated LAB HEMATOLOGY METHOD 06/10/2025 4:48 AM EDT [facility] Neutrophils % 79 % LAB HEMATOLOGY METHOD 06/10/2025 4:48 AM EDT [facility] Lymphocytes % 9 % LAB HEMATOLOGY METHOD 06/10/2025 4:48 AM EDT [facility] Monocytes % 7 % LAB HEMATOLOGY METHOD 06/10/2025 4:48 AM EDT [facility] Eosinophils % 3 % LAB HEMATOLOGY METHOD 06/10/2025 4:48 AM EDT [facility] Basophils % 1 % LAB HEMATOLOGY METHOD 06/10/2025 4:48 AM EDT [facility] Immature Granulocytes % 1 % LAB HEMATOLOGY METHOD 06/10/2025 4:48 AM EDT [facility] Neutrophils Absolute 5.88 1.60 - 6.10 10*3/uL LAB HEMATOLOGY METHOD 06/10/2025 4:48 AM EDT [facility] Lymphocytes Absolute 0.65(L) 1.20 - 3.90 10*3/uL LAB HEMATOLOGY METHOD 06/10/2025 4:48 AM EDT [facility] Monocytes Absolute 0.47 0.30 - 0.90 10*3/uL LAB HEMATOLOGY METHOD 06/10/2025 4:48 AM EDT [facility] Eosinophils Absolute 0.20 0.00 - 0.50 10*3/uL LAB HEMATOLOGY METHOD 06/10/2025 4:48 AM EDT [facility] Basophils Absolute 0.04 0.00 - 0.10 10*3/uL LAB HEMATOLOGY METHOD 06/10/2025 4:48 AM EDT [facility] Immature Granulocytes Absolute 0.04 0.00 - 0.06 10*3/uL LAB HEMATOLOGY METHOD 06/10/2025 4:48 AM EDT [facility] Blood Venous blood specimen / Unknown Venipuncture / Unknown 06/10/2025 4:24 AM EDT 06/10/2025 4:42 AM EDT Narrative [facility] - 06/10/2025 4:48 AM EDT Therapeutic decision making should be based on absolute values, rather than percentages. Faiza Nye MD LAB BLOOD ORDERABLES Final Re sult Performing Organization Address [facility] Co de Phone Number [facility] [address] [place] [address] * (ABNORMAL) Phosphorus, Plasma (06/10/2025 4:24 AM EDT) Only the most recent of11 resultswithin the time period is included. Phosphorus, Plasma 4.6(H) 2.5 - 4.5 mg/dL 06/10/2025 5:[address] [facility] Blood Venous blood specimen / Unknown Venipuncture / Unknown 06/10/2025 4:24 AM EDT 06/10/2025 4:40 AM EDT Faiza Nye MD LAB BLOOD ORDERABLES Final Re sult Performing Organization Address City/[facility]/ZIP Co de Phone Number [facility] [address] [place] [address] * Magnesium, Plasma (06/10/2025 4:24 AM EDT) Only the most recent of11 resultswithin the time period is included. Magnesium, Plasma 2.1 1.9 - 2.4 mg/dL 06/10/2025 5:09 AM EDT [facility] Blood Venous blood specimen / Unknown Venipuncture / Unknown 06/10/2025 4:24 AM EDT 06/10/2025 4:40 AM EDT us Faiza Nye MD LAB BLOOD ORDERABLES Final Re sult [facility] [address] [place] [address] * (ABNORMAL) Comprehensive Metabolic Panel, Plasma (06/10/2025 4:24 AM EDT) Only the most recent of11 resultswithin the time period is included. Glucose, Plasma 165(H) 74 - 99 mg/dL 06/10/2025 5:09 AM EDT [facility] BUN, Plasma 57(H) 7 - 21 mg/dL 06/10/2025 5:09 AM EDT [facility] Creatinine, Plasma 3.74(H) 0.60 - 1.10 mg/dL 06/10/2025 5:09 AM EDT [facility] BUN/Creatinine Ratio 15 06/10/2025 5:09 AM EDT [facility] Sodium, Plasma 136 136 - 145 mmol/L 06/10/2025 5:09 AM EDT [facility] Potassium, Plasma 4.1 3.6 - 4.9 mmol/L 06/10/2025 5:09 AM EDT [facility] Chloride, Plasma 99 97 - 107 mmol/L 06/10/2025 5:09 AM EDT [facility] CO2, Plasma 23 22 - 29 mmol/L 06/10/2025 5:09 AM EDT [facility] Anion Gap 14 6 - 16 mmol/L 06/10/2025 5:09 AM EDT [facility] Total Calcium, Plasma 8.2(L) 8.9 - 10.2 mg/dL 06/10/2025 5:09 AM EDT [facility] Total Protein 5.8(L) 6.3 - 7.9 g/dL 06/10/2025 5:09 AM EDT [facility] Albumin, Plasma 2.7(L) 3.5 - 5.2 g/dL 06/10/2025 5:09 AM EDT [facility] AST, Plasma 9(L) 10 - 35 U/L 06/10/2025 5:09 AM EDT [facility] ALT, Plasma <5(L) 10 - 35 U/L 06/10/2025 5:09 AM EDT [facility] Alkaline Phosphatase, Plasma 166(H) 46 - 142 U/L 06/10/2025 5:09 AM EDT [facility] Total Bilirubin, Plasma 0.4 0.2 - 1.1 mg/dL 06/10/2025 5:09 AM EDT [facility] eGFRcr 13.6 mL/min/1.7 3m*2 06/10/2025 5:09 AM EDT [facility] Comment:Reported eGFRcr in m L/min/1.73m2 is based the CKD-EPI 2020 equation that does not use a race coefficient. Blood Venous blood specimen / Unknown Venipuncture / Unknown 06/10/2025 4:24 AM EDT 06/10/2025 4:40 AM EDT us Faiza Nye MD LAB BLOOD ORDERABLES Final Re sult [facility] [address] [place] [address] * (ABNORMAL) POCT glucose meter (06/05/2025 11:54 AM EDT) Only the most recent of6 resultswithin the time period is included. POCT Glucose 127(H) 74 - 99 mg/dL 06/05/2025 11:56 AM EDT [facility] Comment:Accuracy of a glucos e result [...] Comment 06/05/2025 11:56 AM EDT [facility] Manager Test ID [email or web address] 06/05/2025 11:56 AM EDT [facility] Device ID [id number] 06/05/2025 11:56 AM EDT [facility]ALTH[facility]ARE LAB Specimen Type POC Capillary 06/05/2025 11:56 AM EDT [facility] Blood Capillary blood specimen / Unknown 06/05/2025 11:54 AM EDT 06/05/2025 11:56 AM EDT Mayra Rogers MD LAB POINT OF CARE TE ST DOCKED DEVICE UNSOLICITED RESULTS Final Result Performing Organization Address [facility] Phone Number [facility] [address] [place] [address] * Hepatitis B Surface Antibody, Quantitative (06/05/2025 2:21 AM EDT) Only the most recent of2 resultswithin the time period is included. Pathologist [facility] [place] Hepatitis B Surface Antibody, Quantitative <8.00 NonReactiv e: <8, Grayzone: 8 - <12, Reactive: >= 12 mIU/mL 06/05/2025 5:18 AM EDT [facility] Comment: Nonreactive. Individual is considered not immune to HBV infection. Blood Venous blood specimen / Unknown Venipuncture / Unknown 06/05/2025 2:21 AM EDT 06/05/2025 2:35 AM EDT Mayra Rgoers MD LAB BLOOD ORDERABLES Final Resul t Performing Organization Address [facility] de Phone Number [facility] [address] [place] [address] * Acute Hepatitis Panel (06/05/2025 2:21 AM EDT) Only the most recent of2 resultswithin the time period is included. Pathologist [facility] [place] Hepatitis B Surf Antigen Negative Negative 06/05/2025 4:43 AM EDT [facility] Hepatitis C Antibody Negative Negative 06/05/2025 4:43 AM EDT [facility] Hepatitis A Antibody IgM Negative Negative 06/05/2025 4:43 AM EDT [facility] Hepatitis B Core Antibody IgM Negative Negative 06/05/2025 4:43 AM EDT [facility] Blood Venous blood specimen / Unknown Venipuncture / Unknown 06/05/2025 2:21 AM EDT 06/05/2025 2:35 AM EDT us Mayra Rogers MD LAB BLOOD ORDERABLES Final Resul t [facility] [address] [place] [address] * IR Angiogram ArterioVenous Shunt (06/04/2025 2:31 [...] EDT CLINICAL INDICATION: Low flow AVF TECHNIQUE: Pot Fisher: Dr. Ferris Secondary Manager Test: None Rad Dose: 3 mGy = Procedure: [...] over a guide wire for a 4 Gib[place]tarian micropuncture sheath. The micropuncture sheath was exchanged for a 6 [place] vascular sheath. Via the sheath, A stiff [...] a 7 mm x 4 cm conquest BASE ENGINEER balloon with acceptable technical result. Digital [...] 06/04/2025 CLINICAL INDICATION: Low flow AVF TECHNIQUE: Pot Fisher: Dr. Ferris Secondary Manager Test: None Rad Dose: 3 mGy = Procedure: [...] exchangedover a guide wire for a 4 [place] micropuncture sheath. The micropuncturesheath was exchanged for a 6 [place] vascular sheath. Via the sheath, [place] glide [...] a 7 mm x 4 cm conquest BASE ENGINEER balloon with acceptable technical result.Digital subtraction [...] IMG ADELIA WADE Final Result * (ABNORMAL) Hemoglobin and Hematocrit, Blood (06/03/2025 12:43 PM EDT) Only the most recent of2 resultswithin the time period is included. HGB 7.9(L) 11.2 - 15.7 g/dL LAB HEMATOLOGY METHOD 06/03/2025 2:01 PM EDT [facility] HCT 28.6(L) 34.0 - 45.0 % LAB HEMATOLOGY METHOD 06/03/2025 2:01 PM EDT [facility] Blood Venous blood specimen / Unknown Venipuncture / Unknown 06/03/2025 12:43 PM EDT 06/03/2025 2:01 PM EDT us Mayra Rogers MD LAB BLOOD ORDERABLES Final Resul t [facility] [address] [place] [address] * VAS US Hemodialysis Access Left (06/02/2025 [...] FSVS, RPVI on06/03/2025 4:54 PM us Faiza Nye MD CV VASCULAR PROCEDURES Final Result * [...] ISCV LV MASS(C)D 325 g VIOLETA ISCV [facility] CV ECHO LV MASS INDEX 190 g/m2 [...] is no recent study available for direct hazf-mb-hcsz comparison. Unable to complete study due to [...] is no recent study available for direct dwke-ve-edny comparison. Faiza Nye MD CV ECHO PROCEDURES Final Resu lt * (ABNORMAL) TSH Reflex FT4 (06/02/2025 4:07 AM EDT) [facility] Thyroid Stimulating Hormone, Plasma 23.70(H) 0.40 - 4.20 uIU/mL 06/02/2025 5:37 PM EDT [facility] Blood Venous blood specimen / Unknown Venipuncture / Unknown 06/02/2025 4:07 AM EDT 06/02/2025 4:26 AM EDT Result [facility] Mayra Rogers MD LAB BLOOD ORDERABLES Final Resul t Performing Organization Address [facility] Co de Phone Number [facility] [address] [place] [address] * (ABNORMAL) Free T4, Plasma (06/02/2025 4:07 AM EDT) Only the most recent of2 resultswithin the time period is included. [facility] Free T4, Plasma 0.6(L) 0.8 - 1.7 ng/dL 06/02/2025 6:15 PM EDT [facility] Blood Venous blood specimen / Unknown Venipuncture / Unknown 06/02/2025 4:07 AM EDT 06/02/2025 4:26 AM EDT Mayra Rogers MD LAB BLOOD ORDERABLES Final Resul t Performing Organization Address [facility] Co de Phone Number [facility] [address] [place] [address] * SARS-CoV-2, Flu A, Flu B, and RSV - Rapid (06/01/2025 6:53 PM EDT) [facility] SARS CoV-2/COVID-19 RNA PCR Result Not Detected Not Detected 06/01/2025 7:59 PM EDT [facility] Influenza A Virus PCR Result Not Detected Not Detected 06/01/2025 7:59 PM EDT [facility] Influenza B Virus PCR Result Not Detected Not Detected 06/01/2025 7:59 PM EDT [facility] Respiratory Syncytial Virus (RSV) PCR Result Not Detected Not Detected 06/01/2025 7:59 PM EDT [facility] Swab Nasopharyngeal structure / Unknown Non-blood Collection / Unknown 06/01/2025 6:53 PM EDT 06/01/2025 7:02 PM EDT Narrative [facility] - 06/01/2025 7:59 PM EDT [...] signs and symptoms consistent with COVID-19. Faiza Nye MD LAB MICROBIOLOGY - GENERAL OR DERABLES Final Result [facility] [address] [place] [address] * Blood Culture (Aerobic/Anaerobet Set) (06/01/2025 6:52 PM EDT) Only the most recent of2 resultswithin the time period is included. [facility] Culture No growth at day 5 06/06/2025 8:01 PM EDT [facility] Blood Structure of right hand / Unknown Venipuncture / Unknown 06/01/2025 6:52 PM EDT 06/01/2025 7:03 PM EDT Narrative [facility] - 06/06/2025 8:01 PM EDT Low blood volume submitted, results may be compromised us Faiza Nye MD LAB MICROBIOLOGY - GENERAL OR DERABLES Final Result [facility] [address] [place] [address] * XR Chest 1 View (06/01/2025 5:10 [...] MD on 06/01/2025 7:25 PM us Klarissa L Alisson DO IMG XR PROCEDURES Final Resul t * EKG now - STAT (adult) (06/01/2025 4:57 PM EDT) Only the most recent of2 resultswithin the time period is included. EKG DIAGNOSIS CLASS Abnormal MUSE ECG Ventricular Rate 48 BPM MUSE ECG Atrial Rate 48 BPM MUSE ECG AR Interval 154 ms MUSE ECG QRSD Interval 114 ms MUSE ECG QT Interval 478 ms MUSE ECG QTC Interval 427 ms MUSE ECG P [place] 54 degrees MUSE ECG R [place] 116 degrees MUSE ECG T Wave [place] -12 degrees MUSE ECG Diagnosis Sinus bradycardia with premature atrial complexes with aberrant conduction MUSE ECG Diagnosis Low voltage QRS MUSE ECG Diagnosis Possible , old Anterior infarct MUSE ECG Diagnosis Left posterior fascicular block MUSE ECG Diagnosis Nonspecific T wave abnormality MUSE ECG Diagnosis Abnormal ECG MUSE ECG Diagnosis MUSE ECG Diagnosis Confirmed by Michael Garner ([id number]) on 06/02/2025 10:26:53 AM MUSE ECG 06/01/2025 4:57 PM EDT 06/02/2025 10:26 AM EDT us Klarissa L Alisson DO ECG ORDERABLES Final Result MUSE ECG * (ABNORMAL) BNP (06/01/2025 4:47 PM EDT) N-Terminal, PROBNP, Plasma >70,000(H) 0 - 899 pg/mL 06/01/2025 10:34 PM EDT [facility] Blood Venous blood specimen / Unknown Venipuncture / Unknown 06/01/2025 4:47 PM EDT 06/01/2025 4:53 PM EDT us Faiza Nye MD LAB BLOOD ORDERABLES Final Re sult [facility] [address] [place] [address] * (ABNORMAL) CBC (06/01/2025 4:47 PM EDT) WBC Count 6.37 3.70 - 10.30 10*3/uL LAB HEMATOLOGY METHOD 06/01/2025 5:00 PM EDT [facility] RBC Count 3.11(L) 3.90 - 5.20 10*6/uL LAB HEMATOLOGY METHOD 06/01/2025 5:00 PM EDT [facility] HGB 8.6(L) 11.2 - 15.7 g/dL LAB HEMATOLOGY METHOD 06/01/2025 5:00 PM EDT [facility] HCT 30.3(L) 34.0 - 45.0 % LAB HEMATOLOGY METHOD 06/01/2025 5:00 PM EDT [facility] Platelet Count 46(L) 155 - 369 10*3/uL LAB HEMATOLOGY METHOD 06/01/2025 5:00 PM EDT [facility] MCV 97 79 - 98 fL LAB HEMATOLOGY METHOD 06/01/2025 5:00 PM EDT [facility] MCH 27.7 26.0 - 32.0 pg LAB HEMATOLOGY METHOD 06/01/2025 5:00 PM EDT [facility] MCHC 28.4(L) 30.7 - 35.5 g/dL LAB HEMATOLOGY METHOD 06/01/2025 5:00 PM EDT [facility] RDW 15.4(H) 11.5 - 14.5 % LAB HEMATOLOGY METHOD 06/01/2025 5:00 PM EDT [facility] MPV LAB HEMATOLOGY METHOD 06/01/2025 5:00 PM EDT [facility] Comment:Not Measured nRBC 0.0 <=0.0 per 100 WBCs LAB HEMATOLOGY METHOD 06/01/2025 5:00 PM EDT [facility] Blood Venous blood specimen / Unknown Venipuncture / Unknown 06/01/2025 4:47 PM EDT 06/01/2025 4:53 PM EDT us Klarissawillam Vinson DO LAB BLOOD ORDERABLES Final Re sult [facility] [address] [place] [address] * (ABNORMAL) Blood gas panel, venous (06/01/2025 4:47 PM EDT) Only the most recent of2 resultswithin the time period is included. pH, Venous 7.34 7.32 - 7.43 LAB HEMATOLOGY METHOD 06/01/2025 4:54 PM EDT [facility] pCO2, Venous 51 37 - 52 mmHg LAB HEMATOLOGY METHOD 06/01/2025 4:54 PM EDT [facility] pO2, Venous 39 25 - 40 mmHg LAB HEMATOLOGY METHOD 06/01/2025 4:54 PM EDT [facility] SO2, Measured, Venous 66 65 - 80 % LAB HEMATOLOGY METHOD 06/01/2025 4:54 PM EDT [facility] Base Excess, Venous 1.5 -2.0 - 3.0 mmol/L LAB HEMATOLOGY METHOD 06/01/2025 4:54 PM EDT [facility] Bicarbonate, Calculated, Venous 28(H) 22 - 26 mmol/L LAB HEMATOLOGY METHOD 06/01/2025 4:54 PM EDT [facility] Hematocrit, Whole Blood 26.2(L) 34.0 - 45.0 % LAB HEMATOLOGY METHOD 06/01/2025 4:54 PM EDT [facility] Sodium, Whole Blood 138 136 - 145 mmol/L LAB HEMATOLOGY METHOD 06/01/2025 4:54 PM EDT [facility] Potassium, Whole Blood 3.3(L) 3.6 - 4.9 mmol/L LAB HEMATOLOGY METHOD 06/01/2025 4:54 PM EDT [facility] Chloride, Whole Blood 96(L) 97 - 107 mmol/L LAB HEMATOLOGY METHOD 06/01/2025 4:54 PM EDT [facility] Glucose, Whole Blood 158(H) 74 - 99 mg/dL LAB HEMATOLOGY METHOD 06/01/2025 4:54 PM EDT [facility] Lactate, Venous, Whole Blood 0.8 0.5 - 2.2 mmol/L LAB HEMATOLOGY METHOD 06/01/2025 4:54 PM EDT [facility] Ionized Calcium, Whole Blood 4.5(L) 4.6 - 5.1 mg/dL LAB HEMATOLOGY METHOD 06/01/2025 4:54 PM EDT [facility] Blood Venous blood specimen / Unknown Venipuncture / Unknown 06/01/2025 4:47 PM EDT 06/01/2025 4:53 PM EDT us Klarissa Vinson DO LAB BLOOD ORDERABLES Final Re sult [facility] [address] [place] [address] * Quantiferon TB Gold (05/06/2025 4:22 PM EDT) Quantiferon TB Gold Plus Result Negative Negative 05/07/2025 8:11 PM EDT [facility] TB Nill Value 0.0799 IU/mL 05/07/2025 8:11 PM EDT [facility] TB Antigen 1 -0.0075 IU/mL 05/07/2025 8:11 PM EDT [facility] TB Antigen 2 0.0026 IU/mL 05/07/2025 8:11 PM EDT [facility] TB Mitogen 9.9201 IU/mL 05/07/2025 8:11 PM EDT [facility] Blood Venous blood specimen / Unknown Venipuncture / Unknown 05/06/2025 4:22 PM EDT 05/06/2025 4:56 PM EDT Narrative [facility] - 05/07/2025 8:11 PM EDT Responses to the Mitogen positive control and occasionally to TB antigen can be above the assay range. For calculation purposes: IFN-gamma values > 10 IU/mL are handled as 10 IU/mL. us Sumi Land MD LAB BLOOD ORDERABLES Final Res ult [facility] [address] [place] [address] * (ABNORMAL) BMP (05/06/2025 1:25 PM EDT) Glucose, Plasma 174(H) 74 - 99 mg/dL 05/06/2025 1:50 PM EDT [facility] BUN, Plasma 74(H) 7 - 21 mg/dL 05/06/2025 1:50 PM EDT [facility] Creatinine, Plasma 5.20(H) 0.60 - 1.10 mg/dL 05/06/2025 1:50 PM EDT [facility] BUN/Creatinine Ratio 14 05/06/2025 1:50 PM EDT [facility] Sodium, Plasma 136 136 - 145 mmol/L 05/06/2025 1:50 PM EDT [facility] Potassium, Plasma 3.4(L) 3.6 - 4.9 mmol/L 05/06/2025 1:50 PM EDT [facility] Chloride, Plasma 96(L) 97 - 107 mmol/L 05/06/2025 1:50 PM EDT [facility] CO2, Plasma 20(L) 22 - 29 mmol/L 05/06/2025 1:50 PM EDT [facility] Anion Gap 20(H) 6 - 16 mmol/L 05/06/2025 1:50 PM EDT [facility] Total Calcium, Plasma 7.0(L) 8.9 - 10.2 mg/dL 05/06/2025 1:50 PM EDT [facility] eGFRcr 9.2 mL/min/1.7 3m*2 05/06/2025 1:50 PM EDT [facility] Comment:Reported eGFRcr in m L/min/1.73m2 is based the CKD-EPI 2020 equation that does not use a race coefficient. Blood Venous blood specimen / Unknown Venipuncture / Unknown 05/06/2025 1:25 PM EDT 05/06/2025 1:27 PM EDT us Sena Navarro MD LAB BLOOD ORDERABLES Final Resu lt [facility] [address] [place] [address] * Type and screen (05/05/2025 4:24 PM [...] TEST ORDERABLES Final Result Performing Organization Address [facility] de Phone Number BLOOD BANK [address] * (ABNORMAL) Thyroid Stimulating Hormone, Plasma (05/05/2025 4:24 PM EDT) Thyroid Stimulating Hormone, Plasma 12.22(H) 0.40 - 4.20 uIU/mL 05/05/2025 4:57 PM EDT [facility] Blood Venous blood specimen / Unknown Venipuncture / Unknown 05/05/2025 4:24 PM EDT 05/05/2025 4:29 PM EDT Narrative [facility] - 05/05/2025 4:57 PM EDT Trimester Specific Ranges TSH ( IU/mL) 1st Trimester 0.1 - 3.0 2nd Trimester 0.19 - 4.06 3rd Trimester 0.3 - 3.7 Adalberto Feliz MD LAB BLOOD ORDERABLES Final Res ult Performing Organization Address [facility]/ZIP Co de Phone Number [facility] [address] [place] [address] * (ABNORMAL) Hemoglobin A1c (06/30/2024 11:32 AM EDT) Hemoglobin A1c 5.7(H) <5.7 % 06/30/2024 1:16 PM EDT [facility] Blood Venous blood specimen / Unknown Venipuncture / Unknown 06/30/2024 11:32 AM EDT 06/30/2024 12:28 PM EDT Narrative [facility] - 06/30/2024 1:16 PM EDT HA1C Interpretive Data: Diagnosis of Diabetes: Diabetic > or = 6.5% Pre-diabetic 5.7 to 6.4% Non-diabetic < or = 5.6% Glycemic Targets for Type I and Type II Diabetics: Non- Adults <7.0% Adults <6.0% Children and Adolescents <7.5% Source: [place] [employer]. Standards of medical care in diabetes,2017. Diabetes Care.2017:40 (suppl 1):S1-S135. HbA1c assay performed by an ion-exchange chromatography method that is certified traceable to the DCCT. Jemal Nolan MD LAB BLOOD ORDERABLES Final Resul t Performing Organization Address City/[facility]/ZIP Co de Phone Number [facility] [address] [place] [id number] * ED HIV 1/2 Antibody/Antigen Screen w/Reflex to HIV 1/2 Differentiation (06/21/2024 4:48 PM EDT) HIV 1 & 2 Antibody/Antigen Screen Non Reactive Non Reactive 06/21/2024 6:09 PM EDT [facility] Comment:Screening for HIV 1 & 2 antibodies, and P24 antigen is NONREACTIVE. No confirmatory testing is required. Blood Venous blood specimen / Unknown Venipuncture / Unknown 06/21/2024 4:48 PM EDT 06/21/2024 5:26 PM EDT Douglas Thurman MD LAB BLOOD ORDERABLES Final Resul t [facility] [address] [place] [phone] from Last 3 Months or Most Recently Relevant to Health Maintenance Additional Health Concerns Active Problems Noted Date Diagnosed Date Heart Failure diagnosis knowledge deficit 2024 Fluid retention / overload 06/19/2025 Sodium intake 06/19/2025 Heart failure medication adherence 06/19/2025 Exercise regimen 06/19/2025 Heart failure maintenance 06/19/2025 Heart failure progression and care needs 025 Insurance [employer] MEDICARE Advance Directives * DNR/DNI (Latest Code Status on File) Date Activated Date Inactivated Comments 06/02/2025 1:36 PM 06/10/2025 6:54 PM Question Answer Comments DNR determined on/before admission date? No I have reviewed the capacity from the link above and, if needed, have updated to appropriate status: Yes * Full Code Date Activated Date Inactivated Comments 06/02/2025 12:38 AM 06/02/2025 1:36 PM Confirmed w ith NOK Question Answer Comments I have reviewed the capacity from the link above and, if needed, have updated to appropriate status: Yes * Full Code Date Activated Date Inactivated Comments 06/21/2024 9:06 PM 06/30/2024 5:16 PM Question Answer Comments Patient has decision-making capacity? Yes Care Teams Computer Art Instructor Relationship Specialty Start Date End Date Rosemarie Riley APRN [address] [place] [address] PCP - General 04/02/25 Haydee Mccloud User Support Analyst Supervisor Director Of Channel Marketing 06/03/25 Baylee Gracia Registered Nurse 06/12/25
--- OUTSIDE RECORDS SUMMARY | 2025-06-23 11:46 | XMS_ITS | Encounter Summary ---
Author Organization [facility] Address [address] [place] [address] Care Team Providers Care Aws Solution Architect Name Role Phone RosemaryRosemarie Shanel WILSON Primary Care Provider [phone] Haydee Mccloud Unavailable Unavailable Reason for Visit * Reason Comments Link Encounter Details Date Type Department Care Team ([facility] st Contact Info) Description 06/03/2025 Patient Outreach [facility] [address], [address] [place] [address] Wendie De Leon Social History Tobacco Use Types Packs/Day Years Used Date Smoking Tobacco: Every Day Alcohol Use Standard Drinks/Week Comments No 0 (1 standard drink = 0.6 oz pur e alcohol) Social Connection and Isolation Panel Answer Date Recorded Frequency of Communication with Friends and Fami ly Not on file 06/25/2024 Frequency of Social Gatherin gs with Friends and Family Not on file 06/25/2024 Attends [facility] Not on file 06/25 Active Member [...] any time in the past 12 m [facility], were you homeless or living in a detention (including now)? No 06/03/2025 [facility] Utilities Answer Date Recorded In the [...] drink first t jacqueline in the morning ([employer]ASMA ETCHER) to steady your nerves or to get [...] Date of Assessment Author No Risk Indicated 06/03/2025 8:00 AM EDT Alex Merino, CHAO * Question Answer Date of Assessment Author 1. Wish to be (Past 1 Month) No 025 8:00 AM EDT Alex Merino, CHAO 2. Non-Specific Active Suici ludwin Thoughts (Past 1 Month) No 06/03/2025 8:00 AM EDT Alex Merino, CHAO 6. Suicidal Behavior (Lifetime) No 8:00 AM EDT Alex Merino, CHAO documented as of this encounter Miscellaneous Notes * Progress Notes - eWndie De Leon - 06/03/2025 1:54 PM EDT 06/03/25 [facility] called to speak with Pt's Son Jeremy per pt request to provide LINK information. Jeremy statedthey both take care of her but he lets Wade make most of the medical decisions. Provided basic information to him for the program and advised that it can start if interested when she comes home from the hospital or [facility]. He stated he will speak with his brother before they decide. Advised him thatif they choose to enroll that it would be a good idea for one of them to be present for the home visit. documented in this encounter Plan of Treatment Upcoming Encounters Date Type Department Care Team (Late st Contact Info) Description 07/05/2025 1:00 PM EDT [facility] [address] [place] [address] Sobia Goldberg PA [address] [place] [address] 07/05/2025 2:00 PM EDT Appointment [facility] Pulmonary Function Testing [address] [place] [address] 08/20/2025 12:00 PM EST Office Visit [facility] [address] [address] [facility], [address] [place] [address] Kaiden Harvey MD [address] [facility] [address] [place] [address] documented as of this encounter Visit Diagnoses Not on filedocumented in this encounter Additional Health Concerns Assessment Noted Time A Body Mass Index follow-up plan has been documented for the patient 06/10/2025 2:59 PM EDT documented as of this encounter Care Teams Aws Solution Architect Relationship Specialty Start Date End Date Rosemarie Riley APRN [address] [place] [address] PCP - General 04/02/25 Haydee Mccloud Obstetrics Gyn Network Contract Manager 06/03/25 documented as of this encounter
--- OUTSIDE RECORDS SUMMARY | 2025-06-23 11:46 | XMS_ITS | Clinical Summary ---
Author Organization [facility] Address [address] [place] [address] Care Team Providers Care Heater Furnace Name Role Phone Osmani Becker MD Primary Care Provider [phone] Allergies Active Allergy Reactions Criticality Noted Date [...] 2) 2019 HEMOGLOBIN A1C 12/29/2024 06/30/2024, 06/30/2024 INFLUENZA VACCINE 04/19/2025 06/25/2014, , 10/30/2010 HEPATITIS C SCREENING Completed 06/24/2024, 024 Insurance [facility] [place] Care Teams Heater Furnace Relationship Specialty Start Date End Date Osmani Becker MD [address] [facility] [address] [place] [address] PCP - General Internal Medicine 07/30/16
--- OUTSIDE RECORDS SUMMARY | 2025-06-23 11:46 | XMS_ITS ---
Care Plan Created on: June 23, 2025 Mar Waldron : 1970 Sex: Female Author Organization [facility] Address [address] [place] [address] Care Team Providers Care Gauge Operator Name Role Phone Rosemarie Riley APRN Primary Care Provider [phone] Haydee Mccloud Unavailable Unavailable Baylee Gracia Unavailable Unavailable Active Problems Problem Noted Date Diagnosed Date [...] bleed 06/02/2025 06/10/2025 Volume overload 06/21/2024 06/10/2025 Additional Health Concerns Active Problems Noted Date Diagnosed Date Heart Failure diagnosis knowledge deficit 2024 Fluid retention / overload 06/19/2025 Sodium intake 06/19/2025 Heart failure medication adherence 06/19/2025 Exercise regimen 06/19/2025 Heart failure maintenance 06/19/2025 Heart failure progression and care needs 025 Goals Goal Patient Goal Type Associated Problems [...] progression and care needs No Baylee Gracia Interventions Care Plan Interventions Intervention Entry Date Outcome Educate on palliative care and hospice 06/19/2025 Evaluate readiness for advanced care planning and utilize ACP tools within [facility] for discussion and documentation. 06/19/2025 Educate patient on trajectory of chronic illness 06/19/2025 Educate patient on potential treatments for each stage 06/19/2025 Educate patient regarding symptoms with end stage heart failure 06/19/2025 Educate patient on stages of heart failure 06/19/2025 Educate patient on smoking cessation. Smoking worsens CHF and shortens life. 06/19/2025 Educate patient to monitor symptoms and weight changes, restrict sodium intake, take medications as prescribed, and stay physically active. Careful monitoring and early response to changes in fluid status are important to managing heart failure. 06/19/2025 Schedule regular provider visits for close monitoring of CHF. If patient has not seen physician within the past 6 months, schedule a follow up appointment. 06/19/2025 Work with provider to create an action plan for monitoring and managing CHF 06/19/2025 Educate patient regarding gradually increasing activity, as it keeps the heart healthy. Start out slow and gradually increase activity to 30 minutes a day. 06/19/2025 Educate patient on sexual activity precautions and danger signs. 06/19/2025 Educate patient on maintaining safety during exercise activity; stop if shortness of breath, dizziness, or chest pain develops. 06/19/2025 Educate patient on benefits of exercise for heart failure 06/19/2025 Educate patient on frequency and refill details of meds. Call for refills 2 weeks before running out. 06/19/2025 Educate on possible common side effects and importance of reporting them to care provider 06/19/2025 Discuss ways to manage medications (organization & remembering). Assist patient in setting up daily reminders for meds. 06/19/2025 Provide medication education on most common medications for heart failure 06/19/2025 Discuss barriers to medication adherence 06/19/2025 Emphasize the importance of medication adherence.Take all medications as prescribed. Call provider for any side effects preventing taking of medications. Call for refills 2 wks before running out. Finish antibiotics, even when feeling better. 06/19/2025 Instruct patient to take all medications as prescribed. 06/19/2025 Educate patient on sodium alternatives 06/19/2025 Educate patient how to read a nutrition label pointing out servings and serving size 06/19/2025 Instruct patient to eat less salt (sodium) and watch fluids. No added salt or no more than 2 grams (2000mgs) of sodium or 2 liters of fluid in a 24-hour period, or follow provider s specific recommendations. 06/19/2025 Educate patient on daily sodium intake & how sodium affects the heart 06/19/2025 Educate patient on use of stoplight tool and when to call Cardiology 06/19/2025 Instruct patient to do a daily self-check for symptoms of extra fluid. Watch for shortness of breath, weakness, trouble sleeping, body swelling, or dizziness as those symptoms can be a sign of extra fluid or heart weakening. 06/19/2025 Instruct patient to take weight every day 06/19/2025 Educate patient on fluid management & how too little or too much affects the heart 06/19/2025 Educate patient on daily weight tracking and signs of extremity edema. 06/19/2025 Educate patient on the importance of treating and maintaining other conditions 06/19/2025 For more information about heart disease, visit The [employer] [employer]'s website at https://www.heart.org/en/health-topics 06/19/2025 Encourage patient to read the provided handouts on heart failure 06/19/2025 Educate patient on ejection fraction and it's importance as it pertains to the heart failure diagnosis (HFrEF or HFpEF) 06/19/2025 Educate patient on the mechanics of heart failure 06/19/2025 Related Goals and Interventions Goal Associated Intervent ions Patient will verbalize under standing of how heart failure affects the body For more information about heart disease , visit The [place] [employer]'s website at https://www.heart.org/en/health-topics; Encourage patient to read the provided handouts on heart failure; Educate patient on ejection fraction and it's importance as it pertains to the heart failure diagnosis (HFrEF or HFpEF); Educate patient on the mechanics of heart failure Patient will verbalize under standing of how other conditions affect the heart Educate patient on the importance of treating and maintaining other conditions Patient will be able to iden tify signs and symptoms of fluid retention Educate patient on use of stoplight tool and when to call Cardiology; Instruct patient to do a daily self-check for symptoms of extra fluid. Watch for shortness of breath, weakness, trouble sleeping, body swelling, or dizziness as those symptoms can be a sign of extra fluid or heart weakening.; Instruct patient to take weight every day; Educate patient on fluid management & how too little or too much affects the heart; Educate patient on daily weight tracking and signs of extremity edema. Patient will maintain manage ment of sodium consumption Educate patient on sodium alternatives; Educate patient how to read a nutrition label pointing out servings and serving size; Instruct patient to eat less salt (sodium) and watch fluids. No added salt or no more than 2 grams (2000mgs) of sodium or 2 liters of fluid in a 24-hour period, or follow provider s specific recommendations.; Educate patient on daily sodium intake & how sodium affects the heart Consistently take heart fail ure medication as prescribed Educate patient on frequency and refill details of meds. Call for refills 2 weeks before running out.; Educate on possible common side effects and importance of reporting them to care provider; Discuss ways to manage medications (organization & remembering). Assist patient in setting up daily reminders for meds.; Provide medication education on most common medications for heart failure; Discuss barriers to medication adherence; Emphasize the importance of medication adherence.Take all medications as prescribed. Call provider for any side effects preventing taking of medications. Call for refills 2 wks before running out. Finish antibiotics, even when feeling better.; Instruct patient to take all medications as prescribed. Patient will engage in physi kavin activity safely Educate patient regarding gradually increasing activity, as it keeps the heart healthy. Start out slow and gradually increase activity to 30 minutes a day.; Educate patient on sexual activity precautions and danger signs.; Educate patient on maintaining safety during exercise activity; stop if shortness of breath, dizziness, or chest pain develops.; Educate patient on benefits of exercise for heart failure Patient will not experience any symptoms of shortness of breath or body swelling over the next 3 months Educate patient on smoking cessation. Smoking worsens CHF and shortens life.; Educate patient to monitor symptoms and weight changes, restrict sodium intake, take medications as prescribed, and stay physically active. Careful monitoring and early response to changes in fluid status are important to managing heart failure.; Schedule regular provider visits for close monitoring of CHF. If patient has not seen physician within the past 6 months, schedule a follow up appointment.; Work with provider to create an action plan for monitoring and managing CHF Patient will verbalize under standing of heart failure progression Educate on palliative care and hospice; Evaluate readiness for advanced care planning and utilize ACP tools within [facility] for discussion and documentation.; Educate patient on trajectory of chronic illness; Educate patient on potential treatments for each stage; Educate patient regarding symptoms with end stage heart failure; Educate patient on stages of heart failure
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
--- OUTSIDE RECORDS SUMMARY | 2025-06-23 11:46 | XMS_ITS ---
Author Organization [facility] Address [address] [place] [address] Care Team Providers Care Evp Strategy Name Role Phone Rosemarie Riley APRN Primary Care Provider [phone] Haydee Mccloud Unavailable Unavailable Baylee Gracia Unavailable Unavailable Transitional Care Management Status:Active (Active) Start date:06/12/2025 Enrollment date:06/17/2025 Enrollment reason:Identified using hospital discharge data Overview This episode type is for outpatient care managers enrolling patients in the [facility] Transitional Care Management program. Case Team Name Relationship Phone Baylee Gracia(Responsible Staff) Registered Bernice Continued Care and Services Coordination
--- OUTSIDE RECORDS SUMMARY | 2025-06-23 11:46 | XMS_ITS ---
Author Organization [facility] Address [address] [place] [address] Care Team Providers Care Vending Machine Coin Collector Name Role Phone Rosemarie Riley APRN Primary Care Provider [phone] Haydee Mccloud Unavailable Unavailable Baylee Gracia Unavailable Unavailable LINK Program Status:Identified (Enrolling) Start date:06/03/2025 Enrollment reason:Identified using hospital discharge data Overview This episode type is for outpatient care managers enrolling patients in the [facility] LINK program. Case Team Name Relationship Phone Haydee Mccloud(Responsible Staff) Hardware Trainer Continued Care and Services Coordination
--- OUTSIDE RECORDS SUMMARY | 2025-06-23 11:46 | XMS_ITS | Encounter Summary ---
Author Organization [facility] Address [address] [place] [address] Care Team Providers Care Baggage Screener Name Role Phone RileyRosemarie beach Shanel WILSON Primary Care Provider [phone] Encounter Details Date Type Department Care Team (Latest Contact Info) Description 06/01/2025 Travel Social History Tobacco Use Types Packs/Day [...] drink first t jacqueline in the morning (EYE-SURFACE GRINDING MACHINE HAND) to steady your nerves or to get rid of a hangover? 0 06/21/2024 CAGE Questionnaire Score 0 024 Utilities Answer Date Recorded In the past 12 months has th e [employer], gas, oil, or water company threatened to [...] Date of Assessment Author No Risk Indicated 06/01/2025 4:57 PM EDT Estella Bob, RN * Question Answer Date of Assessment Author 1. Wish to be (Past 1 Month) No 025 4:57 PM EDT Estella oBb, RN 2. Non-Specific Active Suici ludwin Thoughts (Past 1 Month) No 06/01/2025 4:57 PM EDT Ying Bob RN 6. Suicidal Behavior (Lifetime) No 4:57 PM EDT Estella Bob, RN documented as of this encounter Plan of Treatment Upcoming Encounters Date Type Department Care Team (Late st Contact Info) Description 07/05/2025 1:00 PM EDT Consult [facility] Urology [address] [place] [address] Sobia Goldberg PA [address] [place] [address] 07/05/2025 2:00 PM EDT Appointment [facility] Pulmonary Function Testing [address] [place] [address] 08/20/2025 12:00 PM EST Office Visit [facility] [address], [address] [place] [address] Kaiden Harvey MD [address] [place] [address] documented as of this encounter Visit Diagnoses Not on filedocumented in this encounter Additional Health Concerns Infection Onset Date Last Indicated Resolved Time COVID-19 Rule-Out 06/01/2025 06/01/2025 06/01/2025 7:59 PM EDT Assessment Noted Time A Body Mass Index follow-up plan has been documented for the patient 06/10/2025 2:59 PM EDT documented as of this encounter Care Teams Baggage Screener Relationship Specialty Start Date End Date Rosemarie Riley APRN [address] [place] [address] PCP - General 04/02/25 documented as of this encounter
--- OUTSIDE RECORDS SUMMARY | 2025-06-23 11:46 | XMS_ITS | Encounter Summary ---
Author Organization [facility] Address [address] [place] [address] Care Team Providers Care Food Service Substitute Name Role Phone RosemaryRosemarie Shanel WILSON Primary Care Provider [phone] Haydee Mccloud Unavailable Unavailable Encounter Details Date Type Department Care Team (Latest Contact Info) Description 06/04/2025 Travel Social History Tobacco Use Types Packs/Day [...] and Family Not on file 06/25/2024 Attends Buddhist Services Not on file 06/25 Active Member of Clubs or Organizations Not on f ile 06/25/2024 Attends Club or Organization Meetings Not on brois e 06/25/2024 Are you , , di [...] in the past [address] [facility], were you homeless or living in a longterm (including now)? No 06/03/2025 [facility] Utilities Answer Date Recorded In the [...] drink first t jacqueline in the morning (EYE-MAGNETOMETER OPERATOR) to steady your nerves or to [...] Date of Assessment Author No Risk Indicated 06/04/2025 8:00 PM EDT Florence Phelan * Question Answer Date of Assessment Author 1. Wish to be (Past 1 Month) No 025 8:00 PM EDT Florence Phelan 2. Non-Specific Active Suici ludwin Thoughts (Past 1 Month) No 06/04/2025 8:00 PM EDT Florence Phelan 6. Suicidal Behavior (Lifetime) No 8:00 PM EDT Florence Phelan documented as of this encounter Plan of Treatment Upcoming Encounters Date Type Department Care Team (Late st Contact Info) Description 07/05/2025 1:00 PM EDT Consult [facility] [address] [place] [address] Sobia Goldberg PA [address] [place] [address] 07/05/2025 2:00 PM EDT Appointment [facility] Pulmonary Function Testing [address] [place] [address] 08/20/2025 12:00 PM EST Office Visit [facility] [place] [address], [address] [place] [address] Kaiden Harvey MD [address] [place] [address] documented as of this encounter Visit Diagnoses Not on filedocumented in this encounter Additional Health Concerns Assessment Noted Time A Body Mass Index follow-up plan has been documented for the patient 06/10/2025 2:59 PM EDT documented as of this encounter Care Teams Food Service Substitute Relationship Specialty Start Date End Date Rosemarie Riley APRN [address] [place] [address] PCP - General 04/02/25 Haydee Mccloud Cap Lining Machine Operator Operating Room Manager 06/03/25 documented as of this encounter
--- OUTSIDE RECORDS SUMMARY | 2025-06-23 11:46 | XMS_ITS | Encounter Summary ---
Author Organization [facility] ([place], [place], [place], [place] Address [address] [place] [address] Care Team Providers Care Seat Joiner Chainstitch Name Role Phone Osmani Becker MD Primary Care Provider [phone] Encounter Details Date Type Department Care Team (Late st Contact Info) Description 06/25/2024 [facility] Link [address] [place] [address] Rekha Dick MD [address] [place] [address] Social History Tobacco Use Types Packs/Day Years Used Date Smoking Tobacco: Every Day Cigarettes Smokeless Tobacco: Never Alcohol Use Standard Drinks/Week Comments Never 0 (1 standard drink = 0.6 oz pur e alcohol) Utilities Answer Date Recorded In the past 12 months, has t he electric, gas, oil, or water company threatened [...] Do you speak a language other than [place] [facility] [employer] [place] [place]? No 06/17/2024 Do you want help with [...] PM CDT Sexual Orientation Not on file documented as of this encounter Functional Status * Are you deaf or do you have serious difficulty hearing? Answer Date of Assessment Author No 02/03/2024 1:06 PM Traci Fowler RN * Are you blind or do you have serious difficulty seeing, even when wearing glasses? Answer Date of Assessment Author No 02/03/2024 1:06 PM Traci Fowler RN * Do you have serious difficulty walking or climbing stairs? Answer Date of Assessment Author No 02/03/2024 1:06 PM Traci Fowler RN * Do you have serious difficulty dressing or bathing? Answer Date of Assessment Author No 02/03/2024 1:06 PM Traci Fowler RN * Because of a physical, mental, or emotional condition, do you have serious difficulty doing errandsalone such as visiting the doctor? Answer Date of Assessment Author No 02/03/2024 1:06 PM Traci Fowler RN documented as of this encounter Mental Status * Because of a physical, mental, or emotional condition, do you have serious difficulty concentrating, remembering, or making decisions? (5 years old or older) Answer Entry Date Author No 02/03/2024 1:06 PM Traci Fowler RN documented in this encounter Plan of Treatment Not on file documented as of this encounter Visit Diagnoses Not on filedocumented in this encounter Care Teams Seat Joiner Chainstitch Relationship Specialty Start Date End Date Osmani Becker MD [address] [place] [address] [place] [address] PCP - General General Internal Medicine 02/02/24 documented as of this encounter
--- OUTSIDE RECORDS SUMMARY | 2025-06-23 11:46 | XMS_ITS | Encounter Summary ---
Author Organization [facility] Address [address] [place] [address] Care Team Providers Care Barrel Handler Name Role Phone RileyRosemarie beach STEVE Primary Care Provider [phone] Encounter Details Date Type Department Care Team (Latest Contact Info) Description 06/02/2025 Travel Social History Tobacco Use Types Packs/Day [...] a nursing home (including now)? No 06/03/2025 [facility] Utilities Answer Date Recorded In the [...] drink first t jacqueline in the morning (EYE-POST OFFICE CLERK) to steady your nerves or to get [...] Date of Assessment Author No Risk Indicated 06/02/2025 9:00 PM EDT Nicolette Quintero RN * Question Answer Date of Assessment Author 1. Wish to be (Past 1 Month) No 025 9:00 PM EDT Nicolette Quintero RN 2. Non-Specific Active Suici ludwin Thoughts (Past 1 Month) No 06/02/2025 9:00 PM EDT Nicolette Quintero RN 6. Suicidal Behavior (Lifetime) No 9:00 PM EDT Nicolette Quintero RN documented as of this encounter Plan of Treatment Upcoming Encounters Date Type Department Care Team (Late st Contact Info) Description 07/05/2025 1:00 PM EDT Consult [facility] Urology [address], [address] [place] [address] Sobia Goldberg PA [address] [place] [address] 07/05/2025 2:00 PM EDT Appointment [facility] Pulmonary Function Testing [address] [place] [address] 08/20/2025 12:00 PM EST Office Visit [facility] [place] [address], [address] [place] [address] Kaiden Harvey MD [address] [place] [address] documented as of this encounter Visit Diagnoses Not on filedocumented in this encounter Additional Health Concerns Assessment Noted Time A Body Mass Index follow-up plan has been documented for the patient 06/10/2025 2:59 PM EDT documented as of this encounter Care Teams Barrel Handler Relationship Specialty Start Date End Date Rosemarie Riley APRN [facility] [place] [address] PCP - General 04/02/25 documented as of this encounter
--- OUTSIDE RECORDS SUMMARY | 2025-06-23 11:46 | XMS_ITS | Encounter Summary ---
Author Organization [facility] Address [address] [place] [address] Care Team Providers Care Associate Merchandiser Name Role Phone RosemaryRosemarie Shanel WILSON Primary Care Provider [phone] Haydee Mccloud Unavailable Unavailable Reason for Visit * Reason Comments Link Encounter Details Date Type Department Care Team ([facility] st Contact Info) Description 06/03/2025 Patient Outreach [facility] [address], [address] [place] [address] Haydee Mccloud Link Social History [...] any time in the past 12 m [facility], were you homeless or living in a halfway (including now)? No 06/03/2025 [facility] Utilities Answer Date Recorded In [...] drink first t jacqueline in the morning (EYE-OIL SEPARATOR) to steady your nerves or to get [...] Indicated 06/03/2025 8:00 AM EDT Alex Merino, RN * Question Answer Date of Assessment Author 1. Wish to be (Past 1 Month) No 025 8:00 AM EDT Alex Merino, CHAO 2. Non-Specific Active Suici ludwin Thoughts (Past 1 Month) No 06/03/2025 8:00 AM EDT Alex Merino, CHAO 6. Suicidal Behavior (Lifetime) No 8:00 AM EDT Alex Merino, CHAO documented as of this encounter Miscellaneous Notes * Progress Notes - Haydee Mccloud - 06/03/2025 12:34 PM EDT ARABELLA COOPER met with pt bedside for introductions and review of the LINK program. Pt was sleeping and roused but was minimally engaged in conversation. SW inquired if there was family SW could contact and pt instructed all communication be with her son Jeremy. LINK SW provided card for f/u questions. LINK staff to outreach pt's son by phone. Haydee Mccloud LINK Navigator [email or web address] documented in this encounter Plan of Treatment Upcoming Encounters Date Type Department Care Team (Late st Contact Info) Description 07/05/2025 1:00 PM EDT Consult [facility] [address] [place] [address] Sobia Goldberg PA [address] [place] [address] 07/05/2025 2:00 PM EDT Appointment [facility] Pulmonary Function Testing [address] [place] [address] 08/20/2025 12:00 PM EST Office Visit [facility] [place] [address], [address] [place] [address] Kaiden Harvey MD [address] [place] [address] documented as of this encounter Visit Diagnoses Not on filedocumented in this encounter Additional Health Concerns Assessment Noted Time A Body Mass Index follow-up plan has been documented for the patient 06/10/2025 2:59 PM EDT documented as of this encounter Care Teams Associate Merchandiser Relationship Specialty Start Date End Date Rosemarie Riley APRN [address] [place] [address] PCP - General 04/02/25 Haydee Mccloud General Internal Medicine Physician Educational Therapist 06/03/25 documented as of this encounter
--- OUTSIDE RECORDS SUMMARY | 2025-06-23 11:46 | XMS_ITS | Encounter Summary ---
Author Organization [facility] Address [address] [place] [address] Care Team Providers Care Clinical Quality Manager Name Role Phone RosemaryRosemarie Shanel WILSON Primary Care Provider [phone] Haydee Mccloud Unavailable Unavailable Encounter Details Date Type Department Care Team (Latest Contact Info) Description 06/06/2025 Travel Social History Tobacco Use Types Packs/Day [...] any time in the past 12 m [facility], were you homeless or living in a chcf (including now)? No 06/03/2025 [facility] Utilities Answer Date Recorded In the past [...] drink first t jacqueline in the morning (EYE-TEMPLATE INSPECTOR) to steady your nerves or to get [...] Date of Assessment Author No Risk Indicated 06/06/2025 8:00 PM EDT Sonya Santos RN * Question Answer Date of Assessment Author 1. Wish to be (Past 1 Month) No 025 8:00 PM EDT Aranza Santos RN 2. Non-Specific Active Suici ludwin Thoughts (Past 1 Month) No 06/06/2025 8:00 PM EDT Aranza Santos RN 6. Suicidal Behavior (Lifetime) No 8:00 PM EDT Aranza Santos RN documented as of this encounter Plan of Treatment Upcoming Encounters Date Type Department Care Team (Late st Contact Info) Description 07/05/2025 1:00 PM EDT Consult [facility] Urology [address] [place] [address] Sobia Goldberg PA [address] [place] [address] 07/05/2025 2:00 PM EDT Appointment [facility] Pulmonary Function Testing [address] [place] [address] 08/20/2025 12:00 PM EST Office Visit [facility] [place] [address], [address] [place] [address] Kaiden Harvey MD [address] [place] [address] documented as of this encounter Visit Diagnoses Not on filedocumented in this encounter Additional Health Concerns Assessment Noted Time A Body Mass Index follow-up plan has been documented for the patient 06/10/2025 2:59 PM EDT documented as of this encounter Care Teams Clinical Quality Manager Relationship Specialty Start Date End Date Rosemarie Riley APRN [address] [place] [address] PCP - General 04/02/25 Haydee Mccloud Ball Machine Operator Meat Team Member 06/03/25 documented as of this encounter
--- OUTSIDE RECORDS SUMMARY | 2025-06-23 11:46 | XMS_ITS | Encounter Summary ---
Author Organization [facility] Address [address] [place] [address] Care Team Providers Care Slabber Light Name Role Phone Osmani Becker MD Primary Care Provider [phone] Rosemarie Riley APRN Primary Care Provider [phone] Haydee Mccloud Unavailable Unavailable Baylee Gracia Unavailable Unavailable Encounter Details Date Type Department Care Team (Late st Contact Info) Description 02/20/2025 Orders Only External Location [address] [place] [id number] Provider, External Social History Tobacco Use Types [...] place to sleep or slept in a halfway (including now)? No 06/25/2024 CAGE ASSESSMENT Answer [...] drink first t jacqueline in the morning (EYE-UNIVERSAL WORKER ASSISTED LIVING) to steady your nerves or to get [...] Upcoming Encounters Date Type Department Care Team ([facility] st Contact Info) Description 07/05/2025 1:00 PM EDT Consult [facility] [address] [place] [address] Sobia Goldberg PA [address] [place] [address] 07/05/2025 2:00 PM EDT Appointment [facility] Pulmonary Function Testing [address] [place] [address] 08/20/2025 12:00 PM EST Office Visit [facility] [place] [address], [address] [place] [address] Kaiden Harvey MD [address] [place] [address] documented as of this encounter [...] documented as of this encounter Care Teams Slabber Light Relationship Specialty Start Date End Date Osmani Becker MD [facility] [address] [place], [place] [id number] PCP - General 01/30/21 03/03/25 Rosemarie Riley APRN [facility] [place] [id number] PCP - General 04/02/25 Haydee Mccloud Demurrage Clerk Cardiac Nurse 06/03/25 Baylee Gracia Registered Nurse 06/12/25 documented as of this encounter
--- OUTSIDE RECORDS SUMMARY | 2025-06-23 11:46 | XMS_ITS | Encounter Summary ---
Author Organization [facility] Address [address] [place] [address] Care Team Providers Care Deli Bakery Clerk Name Role Phone Osmani Becker MD Primary Care Provider [phone] Rosemarie Riley APRN Primary Care Provider [phone] Haydee Mccloud Unavailable Unavailable Baylee Gracia Unavailable Unavailable Encounter Details Date Type Department Care Team (Late st Contact Info) Description 12/24/2024 Orders Only External Location [address] [place] [id number] Provider, External Social History Tobacco Use Types [...] place to sleep or slept in a custodial (including now)? No 06/25/2024 CAGE ASSESSMENT Answer [...] drink first t jacqueline in the morning (EYE-DESIGN DRAFTER) to steady your nerves or to get [...] Upcoming Encounters Date Type Department Care Team ([facility] st Contact Info) Description 07/05/2025 1:00 PM EDT [facility] [address] [place] [address] Sobia Goldberg PA [address] [place] [address] 07/05/2025 2:00 PM EDT Appointment [facility] Pulmonary Function Testing [address] [place] [address] 08/20/2025 12:00 PM EST Office Visit [facility] [place] [address], [address] [place] [address] Kaiden Harvey MD [address] [place] [address] documented as of this encounter [...] documented as of this encounter Care Teams Deli Bakery Clerk Relationship Specialty Start Date End Date Osmani Becker MD [facility] [address] [place] [address] PCP - General 01/30/21 03/03/25 Rosemarie Riley APRN [facility] [place], [place] [id number] PCP - General 04/02/25 Haydee Mccloud Journeyman Painter Facilities Mechanical Design Engineer 06/03/25 Baylee Gracia Registered Nurse 06/12/25 documented as of this encounter
--- OUTSIDE RECORDS SUMMARY | 2025-06-23 11:46 | XMS_ITS ---
Author Organization [facility] Address [address] [place] [address] Care Team Providers Care Brooch And Bracelet Maker Name Role Phone Rosemarie Riley APRN Primary Care Provider [phone] Haydee Mccloud Unavailable Unavailable Baylee Gracia Unavailable Unavailable High Risk Care Management Status:Active (Active) Start date:06/12/2025 Enrollment date:06/19/2025 Enrollment reason:Identified using hospital discharge data Overview This is a Population Health program aimed at increasing positive outcomes for high-risk patients. Case Team Name Relationship Phone Baylee Gracia(Responsible Staff) Registered Bernice se Continued Care and Services Coordination
--- NOTE | 2025-06-23 11:56 | XR_ITS ---
PROCEDURE INFORMATION: Exam: XR Chest Exam date and time: 06/23/2025 12:11 PM Age: 55 years old Clinical indication: Shortness of breath; Additional info: Dyspnea TECHNIQUE: Imaging protocol: Radiologic exam of the chest. Views: 1 view. COMPARISON: CT CHEST WO CON 04/14/2024 10:23 PM FINDINGS: Lungs: Pulmonary edema with bilateral perihilar predominance. Pleural spaces: Moderate right pleural effusion. Heart/Mediastinum: Mediastinal ostial markers. Unchanged moderate enlargement of the cardiac silhouette. Vasculature: Atherosclerosis. Bones/joints: Sternal sutures. IMPRESSION: 1. Moderate pulmonary edema/congestive heart failure. 2. Moderate right pleural effusion.
[2025-06-23 12:06] LABS: VBG HCO3 28.7 mmol/L (23-30); VBG PH 7.36 mmol/L (7.31-7.41); VBG PO2 49.4 mmol/L (28-40)
[2025-06-23 12:10] LABS: Lactate Venous 2.1 mmol/L (0.4-2.0); VBG PCO2 52.5 mmol/L (35-51)
--- NOTE | 2025-06-23 12:12 | [facility].EDCP ---
Discharge Plan Disposition Chief Complaint: Shortness of Breath/Dyspnea Prescriptions Prescriptions: No Action levothyroxine 75 mcg capsule 75 mcg PO DAILY isosorbide mononitrate 60 mg tablet extended release 24 hr 60 mg PO DAILY clopidogrel 75 mg tablet 75 mg PO DAILY pantoprazole 20 mg tablet,delayed release (DR/EC) 20 mg PO DAILY aspirin 325 mg tablet 325 mg PO DAILY ezetimibe 10 mg tablet 10 mg PO DAILY oxycodone-acetaminophen 10-325 mg tablet 1 tab PO Q6H PRN (Reason: pain) Qty: 120 0RF albuterol sulfate 90 mcg/actuation HFA aerosol inhaler 2 puff inhalation Q6H PRN (Reason: shortness of breath or wheezing) Qty: 8.5 1RF hydralazine 50 mg tablet 50 mg PO Q3H carvedilol 25 mg Tablet 25 mg PO BID Rx Instructions: must administer with a meal/food Referrals Follow up/Referrals: Osmani Becker MD [Primary Care Provider, Medical] - See instructions Stand Alone Forms Stand Alone Forms: Transfer Record - ED Print Language Print Language: Citizen Of [place] Discharge ED Provider: Familia Shabazz General Chief Complaint: Shortness of Breath/Dyspnea Stated Complaint: SOA Time Seen by Provider: 06/23/25 11:51 Mode of Arrival: Wheelchair Source of Information: Patient and Relative Description of Symptoms (Recalled from ER Triage Doc. by RN): Patient reports that she feels she needs a thoracentesis. States that she has been short of breath for 3 days and did have dialysis yesterday. History of Present Illness HPI narrative: This is a 55-year-old female patient, with past medical history of hypertension, hyperlipidemia, diabetes, CAD, COPD, end-stage renal disease on dialysis Tuesday, Tuesday, Tuesday, recurrent pleural effusions, and renal cancer, who is presenting to the emergency department today for evaluation of shortness of breath. The patient states that she has had pleural effusions in the past that have necessitated thoracentesis for drainage. This was done at an outside hospital in [place] and she does not bring any records with her today for review. She states that she was never told the etiology of her pleural effusion and she does not know if the cancer from her kidney has spread to her lungs. She states that over the last couple of days she has had worsening shortness of breath and feels as if she has to work harder to breathe than usual. She is not on oxygen at home. She arrives necessitating oxygen here in the emergency department. She does not have any overt chest pain, no lower extremity erythema or edema, no abdominal pain Related Data Home Medications ?Medication ?Instructions ?Recorded ?Confirmed aspirin 325 mg tablet 325 mg PO DAILY 03/07/24 06/18/25 clopidogrel 75 mg tablet 75 mg PO DAILY 03/07/24 06/23/25 ezetimibe 10 mg tablet 10 mg PO DAILY 03/07/24 06/23/25 isosorbide mononitrate 60 mg 60 mg PO DAILY 03/07/24 06/23/25 tablet,extended release 24 hr levothyroxine 75 mcg capsule 75 mcg PO DAILY 03/07/24 06/23/25 pantoprazole 20 mg tablet,delayed 20 mg PO DAILY 03/07/24 06/23/25 release hydralazine 50 mg tablet 50 mg PO Q3H 04/13/24 06/23/25 carvedilol 25 mg tablet 25 mg PO BID 04/15/24 06/18/25 Previous Rx's ?Medication ?Instructions ?Recorded albuterol sulfate 90 mcg/actuation 2 puff inhalation Q6H PRN 06/18/25 aerosol inhaler shortness of breath or wheezing #8.5 grams oxycodone-acetaminophen 10 mg-325 1 tab PO Q6H PRN pain #120 tabs 06/18/25 mg tablet Allergies Allergy/AdvReac Type Severity Reaction Status Date / Time insulin glargine (From Allergy Intermediate Numbness Verified 06/18/25 15:13 Elsa Macario U-100 Insulin) lisinopril (LISINOPRIL) Allergy Intermediate I-ITCHING Verified 06/18/25 15:13 [facility] Disclaimer: The information contained in this section may have been updated after the patient was seen, as this information can be updated by other users. Medical History HTN (hypertension) Social History Smoking Status: Former smoker alcohol intake: never current occupational status: other Travel in the last 8 weeks?: None Have you lived/traveled outside US in past 30 days?: No Contact w/someone who lives/traveled outside US past 30 days?: No Exposure to someone with infectious disease in past 14 days?: No Do you have a fever (greater than 100.4 F or 38 C)?: No Have you tested positive for COVID-19?: No Exposed to someone with COVID-19 in past 14 days?: No Do you have a sore throat?: No Do you have a cough?: No Do you have any weakness?: No Do you have any diarrhea?: No Are you experiencing any unusual bleeding?: No Do you have any muscle aches/pain?: No Do you have any abdominal pain?: No Are you experiencing loss of taste or smell?: No Other Medical History Have you received the Pneumonia Vaccine: No ROS Obtained: Yes Systems reviewed as appropriate & no additional complaints except as documented Physical Exam General General appearance: other (See MDM) Respiratory Respiratory exam: Present other (See MDM) Cardiovascular Cardiovascular exam: Present other (See MDM) Neurological Exam Neurological exam: Present other (See MDM) HEART Score HEART Score HEART Score assessment performed?: Yes History (anamnesis): Moderately suspicious ECG: Non-specific disturbance Age: 45-65 years Risk factors: 3 or more risk factors Troponin: > 3x normal limit HEART Score: 7 Procedures Miscellaneous Procedure Procedure Performed: Limited cardiac ultrasound note Indication: Shortness of breath Identified cardiac views: [Cardiac parasternal long axis] [Cardiac parasternal short axis] [Cardiac apical four-chamber] [Cardiac subxiphoid] Findings: Cardiac activity: Significantly diminished Gross wall motion: Abnormal Pericardial effusion: Absent Right heart strain: RV LV ratio less than 1 Impression: Significantly diminished global heart function with reduced ejection fraction. TAPSE is low with normal RV LV ratio. Images were saved to permanent archive This study was technically adequate CPT: 78705 This study was performed by me and I personally interpreted all images/videos. Based on my clinical judgment these images were adequate and did not necessitate further imaging. Limited lung ultrasound A focused ultrasound exam of the pleural spaces was performed to evaluate for pneumothorax, pulmonary edema, pleural effusion, and/or consolidation. The ultrasound was performed with the following indications as noted in the H&P: Dyspnea Identified structures: Right and left thoracic cavities were examined. Findings Lung sliding: Right and left present B-lines: Right anterior and lateral present Left anterior and lateral Pleural effusion: Large right sided pleural effusion Small left-sided pleural effusion Impression: Pneumothorax right and left absent Pleural effusion right and left present B-lines right and left present Images were saved to permanent archive This study was technically adequate CPT: 31515-72 This study was performed by me and I personally interpreted all images/videos. Based on my clinical judgment these images were adequate and did not necessitate further imaging. Critical Care Critical Care Time Critical Care Time: No Medical Decision Making Medical Records Medical records reviewed: Yes I reviewed the patient's medical records. Skyler Inquiry Pt receiving controlled substance: No Skyler was queried for this patient: No Vital Signs Vital Signs: 06/23/25 11:26 06/23/25 11:30 06/23/25 11:32 Temperature 98.0 F Temperature Source Oral Pulse Rate 73 61 Pulse Rate [Radial] 66 Respiratory Rate 20 Blood Pressure 179/83 H 172/44 H Blood Pressure [Right Arm] 179/83 H Blood Pressure Mean Blood Pressure Mean [Right Arm] 115 Blood Pressure Source [Right Arm] Automatic Cuff Blood Pressure Position [Right Arm] Sitting 02 Sat by Pulse Oximetry 91 L 90 L 93 L Oxygen Delivery Method Nasal Cannula Nasal Cannula Room Air Oxygen Flow Rate (LPM) 2 2 06/23/25 12:00 06/23/25 12:30 06/23/25 14:00 Temperature Temperature Source Pulse Rate 70 73 68 Pulse Rate [Radial] Respiratory Rate Blood Pressure 160/109 H Blood Pressure [Right Arm] Blood Pressure Mean 114 Blood Pressure Mean [Right Arm] Blood Pressure Source [Right Arm] Blood Pressure Position [Right Arm] 02 Sat by Pulse Oximetry 91 L 99 94 L Oxygen Delivery Method Nasal Cannula Nasal Cannula Room Air Oxygen Flow Rate (LPM) 3 3 06/23/25 14:46 06/23/25 15:04 06/23/25 15:30 Temperature Temperature Source Pulse Rate 77 77 68 Pulse Rate [Radial] Respiratory Rate Blood Pressure 182/92 H 206/94 H 205/96 H Blood Pressure [Right Arm] Blood Pressure Mean 130 Blood Pressure Mean [Right Arm] Blood Pressure Source [Right Arm] Blood Pressure Position [Right Arm] 02 Sat by Pulse Oximetry 86 L 94 L 93 L Oxygen Delivery Method Nasal Cannula Nasal Cannula Nasal Cannula Oxygen Flow Rate (LPM) 3 3 5 06/23/25 16:00 06/23/25 16:30 Temperature Temperature Source Pulse Rate 66 70 Pulse Rate [Radial] Respiratory Rate Blood Pressure 203/95 H 199/98 H Blood Pressure [Right Arm] Blood Pressure Mean 144 Blood Pressure Mean [Right Arm] Blood Pressure Source [Right Arm] Blood Pressure Position [Right Arm] 02 Sat by Pulse Oximetry 94 L 93 L Oxygen Delivery Method Nasal Cannula Nasal Cannula Oxygen Flow Rate (LPM) 5 5 Lab Data Labs: Lab Results 06/23/25 11:40: WBC 4.8, RBC 3.18 L, Hgb 8.2 L, Hct 29.7 L, MCV 93.4, MCH 25.8 L, MCHC 27.6 L, RDW 19.4 H, Plt Count 71 L, Neut % (Auto) 69.2, Lymph % (Auto) 19.8, [place] % (Auto) 7.8, Eos % (Auto) 1.7, Baso % (Auto) 1.1, Neut # (Auto) 3.3, Lymph # (Auto) 0.9, [place] # (Auto) 0.4, Eos # (Auto) 0.1, Baso # (Auto) 0.1, Sodium 139, Potassium 4.0, Chloride 97 L, Carbon Dioxide 30, Anion Gap 16.0 H, BUN 32 H, Creatinine 2.50 H, Estimated Creat Clear 23, Estimated GFR 20 L, Est GFR ( Amer) 24 L, Glucose 138 H, Calcium 8.9, Total Bilirubin 0.6, AST 50 H, ALT 26, Alkaline Phosphatase 344 H, Troponin I 2.56 H, NT-Pro-B Natriuret Pep 348218 H, Total Protein 6.9, Albumin 3.6, Globulin 3.3 H, Albumin/Globulin Ratio 1.1, Lipase 24, HCV Ab CHANEL w/Rflx PCR Qn Negative, HIV Ag/Ab Combo Qual Negative 06/23/25 12:00: VBG pH 7.36, VBG pCO2 52.5 H, VBG pO2 49.4 H, VBG HCO3 28.7, VBG Total CO2 30.3 H, VBG O2 Saturation 81.4 H, VBG Base Excess 3.2 H, VBG Lactic Acid 2.1 H 06/23/25 15:03: Troponin I 2.50 H 06/23/25 11:40 06/23/25 11:40 Response Orders (Tests/Meds): ED MEDICATIONS Discontinued Medications Generic Name Dose Route Start Last Admin Trade Name Freq PRN Reason Stop Dose Admin Aspirin 325 mg 06/23/25 16:11 06/23/25 16:26 Aspirin 325mg Tablet PO 06/23/25 16:12 325 mg ONCE ONE Administration Hydralazine HCl 10 mg 06/23/25 15:00 06/23/25 15:00 Hydralazine 10mg Tablet PO 06/23/25 15:01 10 mg ONCE ONE Administration Hydralazine HCl 25 mg 06/23/25 16:38 Hydralazine Hcl 25mg Tablet PO 06/23/25 16:39 ONCE ONE ORDERS Category Date Time Status CXR --portable [XR chest portable] Stat Exams 06/23/25 11:56 Completed POCUS Point of Care (ER Only) Stat Exams 06/23/25 12:05 Completed BNP [NT Pro Brain Natriuretic Pep.] Stat Lab 06/23/25 11:40 Completed CBC w/Auto Diff [Complete Blood Count Auto Diff] Stat Lab 06/23/25 11:40 Completed CMP [Comprehensive Metabolic Panel] Stat Lab 06/23/25 11:40 Completed HIV Combo Stat Lab 06/23/25 11:40 Completed Hepatitis C Ab Qual. W/ RFX Stat Lab 06/23/25 11:40 Completed Lactic Acid Follow Up (RFLX 1) Stat Lab 06/23/25 16:08 Ordered Lipase Stat Lab 06/23/25 11:40 Completed Troponin I Q3H Lab 06/23/25 15:03 Completed Troponin I Q3H Lab 06/23/25 18:00 Ordered Troponin I Stat Lab 06/23/25 11:40 Completed VBG [Venous Blood Gas] Stat RT 06/23/25 12:00 Completed MDM Narrative Medical Decision Narrative: In summary, this is a 55-year-old female patient who is presenting to the emergency department today for evaluation of worsening shortness of breath over the last couple of days. The patient's comorbidities include a past medical history of hypertension, hyperlipidemia, diabetes, coronary artery disease, COPD on room air at home, recurrent pleural effusions, end-stage renal disease on dialysis Tuesday, and a history of renal cancer. On initial evaluation of the patient she appears tired but is overall nontoxic in appearance. She is hemodynamically stable and nontachycardic. She is requiring 3 L of oxygen to maintain saturations. On auscultation of her chest she does have some wheezing in her upper lung [place] and she has significantly diminished breath sounds in her lower lung [place]. She is mildly tachypneic but is not using integrity assessor muscles. Heart sounds are normal. Abdomen is soft nontender. She has no peripheral edema on exam Differential diagnose includes ACS/IN, pleural effusion, pulmonary embolism, IN, COPD exacerbation, pulmonary edema, among others Workup was initiated with hematologic labs as well as an EKG and a CT pulmonary embolism study. At the time of obtaining the CT pulmonary embolism study the patient declined the study as she does not want to receive IV contrast for the sake of her kidneys. Labs personally interpreted by me demonstrates no leukocytosis, no transfusional anemia. VBG shows mild hypercapnia that is compensated for with a normal pH of 7.36. CMP shows chronic elevation of creatinine which is at 2.5 today. No significant electrolyte derangements. Her initial troponin is markedly elevated at 2.56 and her delta troponin is 2.5. Her BNP is also markedly elevated 244,000. We have obtained 3 different EKGs. The first 2 EKGs have such significant artifact that they are difficult to interpret. The patient's third EKG was personally interpreted by me and demonstrates normal sinus rhythm at a rate of 73 bpm, right axis, no HI prolongation, narrow QRS, no QTc prolongation. There are T wave inversions in leads II, III, and aVF. There is no overt ST elevation myocardial infarction. We have administered 325 mg of aspirin as well as hydralazine for her hypertension. I discussed this patient with our on-call creative services director and he feels that she is stable for transfer to the outside facility without any intervention. He notes that the patient is on significant doses of hydralazine at baseline and states that in the setting of recurrent pleural effusions it is possible that this patient could have drug-induced lupus. I did perform a bedside POCUS assessment which shows a very poor overall function of the patient's heart. Her ejection fraction is reduced. Her TAPSE is significantly reduced. She has no significant pericardial effusion. She has B-lines in her bilateral lung [place] consistent with pulmonary edema and she also has a large right-sided pleural effusion and a small left-sided pleural effusion. Chest x-ray was personally interpreted by me and demonstrates a large right sided pleural effusion. Official radiology read is in agreement states that she has moderate pulmonary edema as well as this right-sided pleural effusion This patient's presentation is overall most consistent with volume overload in the setting of end-stage renal disease with a concomitant NSTEMI, pulmonary edema, and bilateral pleural effusions of which the right is worse than the left. We do not have dialysis capabilities here at our hospital. Therefore she will necessitate transfer to another center for higher level of care. I have had an interactive discussion with Dr. Banuelos at [facility] in [place]. He has graciously agreed to accept patient for transfer. Patient transferred in stable condition
--- NOTE | 2025-06-23 12:26 | ECG_ITS ---
APPROVED REPORT Exam: Resting ECG HR:75 bpm ECG Measurements Heart Rate 75 AXES QRSd 125 QRS 129 QT 405 T -30 QTc 433 Conclusion Presumed sinus rhythm Right axis Remainder of EKG difficult to interpret second to significant baseline artifact Electronically signed by : Familia Shabazz, 06/23/2025 16:43:04
[2025-06-23 12:27] LABS: Albumin Level 3.6 g/dl (3.5-5.0); Chloride 97 mmol/L (98-107); Potassium 4.0 mmoL/L (3.5-5.1); Sodium 139 mmol/L (136-145)
[2025-06-23 12:29] LABS: Alanine Aminotransferase 26 U/L (12-78); Alkaline Phosphatase 344 U/L (38-126); Anion Gap 16.0 mEq/L (5-15); Aspartate Amino Transferase 50 U/L (14-36); Bilirubin,Total 0.6 mg/dl (0.2-1.3); Carbon Dioxide 30 mmol/L (22.0-30.0)
--- NOTE | 2025-06-23 12:29 | ECG_ITS ---
APPROVED REPORT Exam: Resting ECG HR:77 bpm ECG Measurements Heart Rate 77 AXES NM 101 P 67 QRSd 145 QRS 132 QT 462 T -50 QTc 494 Conclusion Sinus rhythm EKG difficult to interpret secondary to significant artifact Electronically signed by : Familia Shabazz, 06/23/2025 16:41:23
[2025-06-23 12:30] LABS: Albumin/Globulin Ratio 1.1 (1.1-1.8); Calcium 8.9 mg/dl (8.4-10.2); Globulin 3.3 g/dL (1.3-3.2); Glucose 138 mg/dl (74-100); Lipase 24 U/L (23-300); Total Protein,Serum 6.9 g/dl (6.3-8.2)
[2025-06-23 12:37] LABS: Hematocrit 29.7 % (37.0-47.0); Hemoglobin 8.2 g/dL (12.2-16.2); Immature Granulocytes % 0.4 %; Mean Corpuscular HGB Conc 27.6 g/dL (31.8-35.4); Mean Corpuscular Hemoglobin 25.8 pg (27.0-31.2); Mean Corpuscular Volume 93.4 fl (81-99); Nucleated Red Blood Cells % 0 %; Platelet Count 71 K/mm3 (142-424); Red Blood Count 3.18 M/mm3 (4.20-5.40); Red Cell Distribution Width-SD 67.0 fL; White Blood Count 4.8 K/mm3 (4.8-10.8)
[2025-06-23 12:46] LABS: Troponin I 2.56 ng/ml (0.00-0.034)
[2025-06-23 13:31] LABS: Blood Urea Nitrogen 32 mg/dl (7-17); Creatinine Clearance Estimated 23 mL/min (50-200); Creatinine,Serum 2.50 mg/dl (0.52-1.04); Estimated Glomerular Filt Rate 20 ml/min (>60); GFR (African American) 24 ML/MIN (>60)
[2025-06-23 14:07] LABS: Hepatitis C Ab Qual. W/ RFX NEGATIVE (Negative)
--- NOTE | 2025-06-23 14:13 | PC.NURSE ---
Called for a patient transfer per . he is now on the phone with the
[2025-06-23 14:16] LABS: NT Pro Brain Natriuretic Pep. 244000 pg/mL (0-125)
--- NOTE | 2025-06-23 14:22 | PC.NURSE ---
Called [facility] for a patient transfer per Dr. Shabazz. They are going to call back when the hospitalist is ready to talk.
--- NOTE | 2025-06-23 14:32 | PC.NURSE ---
Dr. Shabazz is on the phone with [facility] hospitalist.
--- NOTE | 2025-06-23 14:43 | PC.NURSE ---
Called [facility] per to get the patient transferred.
[2025-06-23] MEDS: HYDRALAZINE 10MG TABLET 10 MG PO (15:00)
--- NOTE | 2025-06-23 15:07 | PC.NURSE ---
2nd trop sent
[2025-06-23 15:43] LABS: Troponin I 2.50 ng/ml (0.00-0.034)
--- NOTE | 2025-06-23 15:50 | ECG_ITS ---
APPROVED REPORT Exam: Resting ECG HR:73 bpm ECG Measurements Heart Rate 73 AXES NC 139 P 75 QRSd 122 QRS 132 QT 395 T -31 QTc 421 Conclusion SINUS RHYTHM POSSIBLE RIGHT VENTRICULAR HYPERTROPHY [SOME/ALL OF: PROMINENT R IN V1, LATE TRANSITION, RAD, TONY, SSS] PROBABLE INFERIOR MYOCARDIAL INFARCTION , OF INDETERMINATE AGE [35 ms Q WAVE IN II/aVF] ABNORMAL ECG UNCONFIRMED REPORT Electronically signed by : LARISSA EDWARDS, 06/23/2025 23:58:58
[2025-06-23 16:08] LABS: Reflex Lactic Add Lactic Reflex
[2025-06-23] MEDS: ASPIRIN 325MG TABLET 325 MG PO (16:26)
--- NOTE | 2025-06-23 16:31 | PC.NURSE ---
report attempted to be called,nurse will call me back
--- NOTE | 2025-06-23 16:38 | PC.NURSE ---
report called to [facility].
== END 2025-06-23 17:12 | disposition short-term general hospital (02) ==
PROVIDERS: Emergency Provider Student in an Organized Health Care Education/Training Program; PCP Internal Medicine
DX: R09.02 Hypoxemia (principal); J81.0 Acute pulmonary edema; J90 Pleural effusion, not elsewhere classified; E87.70 Fluid overload, unspecified; R79.89 Other specified abnormal findings of blood chemistry; N18.6 End stage renal disease; I12.0 Hypertensive chronic kidney disease with stage 5 chronic kidney disease or end stage renal disease; E11.22 Type 2 diabetes mellitus with diabetic chronic kidney disease; J44.9 Chronic obstructive pulmonary disease, unspecified; Z87.891 Personal history of nicotine dependence; Z86.79 Personal history of other diseases of the circulatory system; Z99.2 Dependence on renal dialysis
CPT/HCPCS: 71045; 80053; 82803; 83690; 83880; 84484; 85025; 86803; 87389; 93005; 99285

== ENCOUNTER 2025-07-22 01:19 | Emergency (ER) | payer MEDICARE, SELFPAY ==
--- OUTSIDE RECORDS SUMMARY | 2025-04-24 11:38 | XMS_ITS | Continuity of Care Document ---
Author Organization [facility]. If a dditional information is needed, contact Health Information Management at [phone] [address] [place] [address] Phone Care Team Providers Care Inside Sales Executive Name Role Phone Unavailable Unavailable Unavailable Unavailable Unavailable Unavailable Unavailable Unavailable Unavailable Unavailable Unavailable Unavailable Unavailable Unavailable Unavailable Unavailable Unavailable Unavailable Unavailable Unavailable Unavailable Unavailable Unavailable Unavailable Unavailable Unavailable Unavailable Unavailable Unavailable Unavailable Unavailable Unavailable Unavailable Unavailable Unavailable Unavailable Unavailable Unavailable Unavailable Unavailable Unavailable Unavailable Unavailable Unavailable Unavailable Unavailable Unavailable Unavailable Unavailable Unavailable Unavailable Unavailable Unavailable Unavailable Unavailable Unavailable Unavailable Unavailable Unavailable Unavailable Unavailable Unavailable Unavailable Unavailable Unavailable Unavailable Unavailable Unavailable Unavailable Unavailable Unavailable Unavailable Unavailable Unavailable Unavailable Unavailable Unavailable Unavailable Unavailable Unavailable Unavailable Unavailable Unavailable Unavailable Unavailable Unavailable Unavailable Unavailable Unavailable Unavailable Unavailable Unavailable Unavailable Unavailable Unavailable Unavailable Unavailable Unavailable Unavailable Unavailable Unavailable Unavailable Unavailable Unavailable Unavailable Unavailable Unavailable Unavailable Unavailable Unavailable Unavailable Unavailable Unavailable Unavailable Unavailable Unavailable Unavailable Unavailable Unavailable Unavailable Unavailable Unavailable Unavailable Unavailable Unavailable Unavailable Unavailable Unavailable Unavailable Unavailable Unavailable Unavailable Unavailable Unavailable Unavailable Unavailable Unavailable Unavailable Unavailable Unavailable Unavailable Unavailable Unavailable Unavailable Unavailable Unavailable Unavailable Unavailable Unavailable Unavailable Unavailable Unavailable Unavailable Unavailable Unavailable Unavailable Unavailable Unavailable Unavailable Unavailable Unavailable Unavailable Unavailable Unavailable Unavailable Unavailable Unavailable Unavailable Unavailable Unavailable Unavailable Unavailable Unavailable Unavailable Unavailable Unavailable Unavailable Unavailable Unavailable Unavailable Unavailable Unavailable Unavailable Unavailable Unavailable Unavailable Unavailable Unavailable Unavailable Unavailable Unavailable Unavailable Unavailable Unavailable Unavailable Unavailable Unavailable Unavailable Unavailable Unavailable Unavailable Unavailable Unavailable Unavailable Unavailable Unavailable Unavailable Unavailable Unavailable Unavailable Unavailable Unavailable Unavailable Unavailable Unavailable Unavailable Unavailable Unavailable Unavailable Unavailable Unavailable Unavailable Unavailable Unavailable Unavailable Unavailable Unavailable Unavailable Unavailable Unavailable Unavailable Unavailable Unavailable Unavailable Unavailable Unavailable Unavailable Unavailable Unavailable Unavailable Unavailable Unavailable Unavailable Unavailable Unavailable Unavailable Unavailable Unavailable Unavailable Unavailable Unavailable Unavailable Unavailable Unavailable Unavailable Unavailable Unavailable Unavailable Unavailable Unavailable Unavailable Unavailable Unavailable Unavailable Unavailable Unavailable Unavailable Unavailable Unavailable Unavailable Unavailable Unavailable Unavailable Unavailable Unavailable Note Melanie Grace MD-6-Apr-2025 [facility] [address] [place] [address] Patient Name: NASH LLANOS : 68 Admit/Ser Date: 04/17/25 AGE: 54Attend Physician: Lesly Navarro MD [facility] DISCHARGE SUMMARYDATE OF ADMISSION: 04/17/2025DATE OF DISCHARGE: 04/24/2025DISCHARGE DISPOSITION: longterm facility at [facility].DISCHARGE DIAGNOSES:1. End-stage renal disease, on hemodialysis.2. Hypertension.3. Anemia of chronic disease.4. Chronic hypoxic respiratory failure.5. Thrombocytopenia.DISCHARGE LABORATORY DATA: WBC 4.9, hemoglobin 9.1, platelets 32. Sodium 135,potassium 3.9, BUN 49, creatinine 5.2. LFTs are normal.MEDICATIONS ON DISCHARGE: Balsam Jupiter b.i.d., Cardura 2 b.i.d., Celexa 20 atbedtime, Imdur 60 every day, Lipitor 80 at bedtime, Synthroid 75 mcg every day,Topamax 50 b.i.d., Zetia 10 every day, Percocet 10/325 q.6 p.r.n.HOSPITAL COURSE: Mrs. Nash Llanos is a 54-year-old patient with known historyof end-stage renal disease, on hemodialysis, who was being taken care of herhusband at home, but while at home the patient could not be taken care of withall the comorbid conditions. At that point, brought her into thehospital, consulted by Nephrology and the patient otherwise has been consultedby Case Management and once Case Management has been evaluated, once bed wasavailable, was being [facility] for further physicaltherapy before discharge back home. The patient was evaluated by Hematologyfor anemia. The patient was advised to follow up with Hematology as anoutpatient to get in a bone marrow biopsy to rule out any clinicalhematological bone marrow findings. The patient once cleared by the specialistwas discharged. The patient was discharged back to assisted facility toget some therapy to adequate the patient's medical goals. Condition ondischarge is stable and refer to the computer chart for further admissiondetails.PHYSICAL EXAMINATION ON DISCHARGE: VITAL SIGNS: Temperature 98, pulse rate65, respiratory rate of 18, blood pressure 168/53.HEENT: Pupils reacting to the light.LUNGS: Decreased breath sounds.ABDOMEN: Soft. Bowel sounds present.NEURO: Awake, alert, oriented x3.Patient Name: NASH LLANOS ON DISCHARGE: Stable. ABI Marcial/AquityDD: 04/24/2025 20:26DT: 04/24/2025 21:15Job #: [id number] by Lesly Navarro MD On 04/30/2025 01:03:17 PMR#[id number] at 0103Patient Name: NASH LLANOS 24-Apr-2025 [facility][id number] of Initial Eval:88750747:0 Hr 00 Mins:0 Hr 00 Mins:0 Hr 00 Mins:0 Hr 00 MinsDaily Treatment Total:0 Hr 0 MinsTreating Therapist:[id number] Therapist:Kristina Linda - PTSubjective:MULT ATT MADE, 1ST ATT PT WAS OOR FORSubjective:DIALYSIS, WENT TO F/U PT WAS DC. WASSubjective:NOT ABLE TO SEE THIS PT PRIOR TO THEMSubjective:LEAVING. Melanie Grace MD-24-Apr-2025 Activity BedrestActivity: As Isa Jalen Barcenas MD-- 025 [facility] ([facility])Nephrology Progress NoteREPORT#:[id number] REPORT STATUS: SignedDATE:04/24/25 TIME: 754PATIENT: NASH LLANOS UNIT #: [id number]#: [id number] [facility] [birth year]AGE: 54 SEX: F ATTEND: Lesly Navarro MDADM AUTHOR: Wolff,Purushottam MDREP SRV REP SRV TM: 0755* ALL edits or amendments must be made on the electronic/computer document *SubjectiveChief complaint:Follow-up end-stage renal diseaseReview of SystemsFree Text ROS NotesFree Text ROS Notes:Patient denies any complaints. 2 L removed in hemodialysis yesterday.ObjectivePhysical ExamGeneral appearance: alert, awake, orientedNeck: no JVDCardiovascular: no rubRespiratory: aerating wellAbdomen: non-tender, normal bowel sounds, soft, no CVA tendernessGenitourinary: no urinary catheterExtremities: no edemaNeuro/DRAFTER: alertResultsFindings/Data:Current Medications Sig/Inocencia Start time LastMedication Dose Route Stop Time Status AdminMiscellaneous 1 EA ASDIR 04/19 1130 ACInformation MISCEpoetin Eh-epbx 20,000 UNIT DIALYSIS-DOSE 04/19 1124 CKD 04/22 DURING IV 1241Lidocaine/Prilocain 1 APPL ASDIR PRN 04/19 0719 CKDe TOPICALAtorvastatin 80 MG BEDTIME 04/18 2100 AC 04/23Calcium PO 2049Ezetimibe 10 MG DAILY 04/18 0900 AC 04/23 PO 0823Isosorbide 60 MG DAILY 04/18 0900 AC 04/23Mononitrate PO 0823Levothyroxine 75 MCG DAILY@0600 04/18 0600 AC 04/24Sodium PO 0530Citalopram 20 MG BEDTIME 04/17 2100 AC 04/23Hydrobromide PO 2048Doxazosin Mesylate 2 MG BID 04/17 2100 AC 04/23 PO 2050Peruvian Balsam 1 APPL BID 04/17 2100 AC 04/23 TOPICAL 2053Sodium Chloride 10 ML Q12HR 04/17 2100 AC 04/23 IV 2049Topiramate 50 MG BID 04/17 2100 AC 04/23 PO 2050Hydralazine HCl 75 MG Q6HR 04/17 1800 AC 04/24 PO 0530Nitroglycerin 0.4 MG Q5M PRN PRN 04/17 1746 AC SLOxycodone/ 1 TAB Q6H PRN PRN 04/17 1746 AC 04/24Acetaminophen PO 0318Sodium Chloride 10 ML ASDIR PRN 04/17 1330 AC IVDiagnosis, Assessment PlanFree Text A P:End-stage renal disease, usually Tuesday schedule.Deconditioned statusDiarrhea improvingWe had recommended withdrawal of dialysis patient declinedRecommended hospice patient declinedHistory of recurrent pleural effusionHemodialysis today for 3 hours fluid loss 2-3 L as toleratedBegin discharge planningPatient is deconditioned high frailty index muscle wasting cachexia making long-term prognosis poor which is why we recommended withdrawal of dialysis andhospice but patient has declined and until then ongoing dialysis 3 times a week at 0757RPT#:[id number] OF REPORT 23-Apr-2025 Date:[id number] Eval:[id number]:K.T TREATMENT SESSION:1237:1300:0 Hr 23 Mins:0 Hr 00 MinsDaily Treatment Total:0 Hr 23 MinsSubjective:PT ID VIA WRIST BAND, CONSENTED FOR OT TX AND WAS CLEARED BYSubjective:NSG.Report of Pain?YPain Comment:B KNEESPrecautions:FALLSPrecautions:CONTACTPrecautions:CARDIACPrecautions:DIALYSIS (M/W/F)Current Modified Ravinder Score:4:4 Moderate severe disabilBed alarm/chair alarm reset at the end of therapy:Y:YESAssessment:Assessment:Assessment:PT TOLERATED THERA EXER ON BUE WITH THERA BANDAssessment:WITH HORIZONTAL SHOULDER ABD/FLEX AND ELBOWAssessment:FLEX/EXT, OPERATIONS BUSINESS PARTNER EXER X 10REPS X 2 SETS ANDAssessment:BREATHING EXER. PT REQ MIN A AND VCS FOR PROPERAssessment:ROM PERFORMANCE.Assessment:Assessment:PT PARTICIPATED IN SELF CARE RETRAINING WITHAssessment:PROPER BODY MECHANICS, SAFETY PREC, ANDAssessment:COMPENSATORY STRATEGIES. PT COMPLETED UB LIGHTAssessment:SPONGE BATHING WITH SBA IN THE FRONT AND MAX A ONAssessment:HER BACK WHILE SITTING AT EOB. PT REQ MIN A W/Assessment:[facility]. PT REQ EXTRA TIME TOAssessment:COMPLETE TASKS. AFTER OT SESSION, PT WAS LEFTAssessment:RECLINED IN BED WITH CALL BUTTON AND TRAY TABLEAssessment:W/IN REACH. HANDOFF COMMUNICATION TO RN RE PT'SAssessment:FUNCTIONAL STATUS.Assessment:Assessment:DC RECOMMENDATION : REHABTolerance to tx:PP:POOR+Short term Goals to be achieved by (DATE): willIMPROVE SITTING BAL/DARI,TO F+/G FOR >5 MINUTES,FOR ADLSStatus:PM:PARTIALLY METPt willST:COMPLETE STRENGTHENING,6:AT MODIFIED INDEPEND LVL,EC:W/ENERGY CONS TECHNIQUEStatus:PM:PARTIALLY METPt willCOMPLETE UB DRESS/BATHING,5:WI SBA & VCs NEEDED,DGSA:W/SAFETY AWARENESSStatus:PM:PARTIALLY METPt willGR:COMPLETE GROOMING,6:AT MODIFIED INDEPEND LVL,DGSA:W/SAFETY AWARENESSStatus:PM:PARTIALLY METLong term Goals to be achieved by (DATE): willCT:COMPLETE COMMODE TRANSFER,3:W/MODERATE ASSISTANCE,UAD:UTILIZING ASSIST DEVICEStatus:PM:PARTIALLY METPt willTO:COMPLETE TOILETING,3:W/MODERATE ASSISTANCE,DGSA:W/SAFETY AWARENESSStatus:PM:PARTIALLY METPlan:CONT:CONTINUE OT TOWARD GOALTherapist recommended discharge needs:PostAcute:Post-acute servicesEquipment Recommended:BSC:3 IN 1 COMMODETreatment Modalities Used to Achieve Goals:ADL:ADL RETRAININGTreatment Modalities Used to Achieve Goals:MB:FUNCTIONAL MOBILITYTreatment Modalities Used to Achieve Goals:TA:THERAPEUTIC ACTIVITYTreatment Modalities Used to Achieve Goals:FRANCINE:THERAPEUTIC UE EXERCISETreatment Modalities Used to Achieve Goals:WM:WHEELCHAIR MANAGEMENTTreatment units:1S:1 UNIT SHONE/ADLTreatment units:1T:1 UNIT THERAPEUTIC EXERTreating Therapist:MYCHAL 23-Apr-2025 ROOM:Date:[id number] of Initial Eval:[id number] TREATMENT SESSION:1005:1028:0 Hr 23 Mins:0 Hr 00 Mins:0 Hr 00 Mins:0 Hr 00 MinsDaily Treatment Total:0 Hr 23 MinsTreating Therapist:STEPHANIEXAEvalueric Therapist:Kristina Linda Entered:TA:THERAPEUTIC ACTIVITYCharges Entered:TE:THERAPEUTIC EXERCISESubjective:PT FOUND IN BED AND REQUIREDSubjective:ENCOURAGEMENT TO PARTICIPATE WITH TX. PTSubjective:IDENTIFIED WITH ID ERICA.Report of Pain?YPain Comment:BACKSupplemental Oxygen used:YNumber of liters/min:2Bed Mobility Training:YRolling From Side to Side:2:2-Max Asst/Perform 25-50%:3:3-Mod Asst/Perform 50-75%Bridgin:0-Activity Does Not Occur:0:0-ACTIVITY DOES NOT OCCURScootin:2-Max Asst/Perform 25-50%:3:3-MOD ASST/PER 50-75%Supine to Sit:3:3-Mod Asst/Perform 50-75%:3:3-Mod Asst/Perform 50-75%Sit to Supine:3:3-Mod Asst/Perform 50-75%:4:4-Min Asst/Perform 75%Transfers Training:YSit<->Stand:2:2-Max Asst/Perform 25-50%:3:3-Mod Asst/Perform 50-75%Bed<->Chair:0:0-Activity Does Not Occur:0:0-Activity Does Not OccurTherapeutic Exercises/Modalities:THER EX X 10 ON B LE1.INCREASE HER BLE STRENGTH TO 3-/5Status:O:ONGOINGTime Frame:.IMPROVE HER STATIC SITTING BALANCE TO F+, DYNAMIC TO FAIRStatus:O:ONGOINGTime Frame:[id number].TRANSFERS SIT<>STAND WITH MOD AStatus:O:ONGOINGTime Frame:[id number].IMPROVE HER SUPPORTED STATIC STANDING BALANCE TO FAIRStatus:O:ONGOINGTime Frame:[id number].PERFORMS BED MOBILITY WITH MOD ASSISTStatus:O:ONGOINGTime Frame:264637349.IMPROVE HER MED MOBILITY TO MIN ASSISTStatus:O:ONGOINGTime Frame:241508997.2.TRANSFERS SIT<>STAND WITH MIN ASSISTStatus:O:ONGOINGTime Frame:423352740.INITIATE GT W/RW AND ASSISTStatus:O:ONGOINGTime Frame:16621855Iuvnvcbor Barriers to Goal Achievement:CM:Co-morbiditiesPT Assessment:PT ENCOURAGED TO USE THE BEDRAIL TO ASSIST WITH ROLLING TOPT Assessment:SIT UP AT EOB. PT DISPLAYS GOOD SITTING BALANCE. PTPT Assessment:PERFORMED EXERCISES ON B LE WHILE SITTING AT EOB. PT STOODPT Assessment:WITH TWO PERSON ASSIST. PT WAS ABLE TO MAINTAIN STANDINGPT Assessment:BALANCE FOR 10 SECONDS BEFORE SITTING. PT ENCOURAGED TOPT Assessment:TAKE A SIDE STEP AND PT DECLINED. PT STOOD AGAIN AND WASPT Assessment:ABLE TO MAINTAIN STANDING BALANCE FOR 20 SECONDS BEFOREPT Assessment:SITTING. PT REFUSED TO TAKE A STEP DUE TO FEAR OF FALLING.PT Assessment:PT REPORTED MULTIPLE FALLS. PT REPORTED SHE WRAPS HER ARMSPT Assessment:AROUND PERSON AT HOME AND HE LIFTS HER TO TRANSFER. PTPT Assessment:REPORTED HE ISN'T AT HOME ALL THE TIME AND HAS TO WAIT FORPT Assessment:HIM TO USE THE BATHROOM. PT RETURNED BACK TO BED AND LEFTPT Assessment:WITH CALL SHEPPARD WITHIN REACH. HAND OFF COMMUNICATIONPT Assessment:REGARDING PT TO NURSING.Bed/chair alarm reset at the end of therapy:Y:YESTherapist recommended discharge needs:PostAcute:Post-acute servicesPlan/Comment:CP:CONTINUE PLAN OF CARE Jalen Barcenas MD- [address] [place] [address])Nephrology Progress NoteREPORT#:[id number] REPORT STATUS: SignedDATE:04/23/25 TIME: 0807PATIENT: NASH LLANOS UNIT #: [id number]#: [id number] [facility] [birth year]AGE: 54 SEX: F ATTEND: Lesly Navarro MDADM AUTHOR: Kristine Wolff MDREP SRV REP SRV TM: 0807* ALL edits or amendments must be made on the electronic/computer document *SubjectiveChief complaint:Follow-up end-stage renal diseaseReview of SystemsFree Text ROS NotesFree Text ROS Notes:Patient denies any complaints. 2 L removed in hemodialysis yesterday.ObjectivePhysical ExamGeneral appearance: cachectic/emaciated, chronically ill appearing, frail, alert, awake, orientedNeck: no JVDCardiovascular: no rubRespiratory: aerating wellAbdomen: non-tender, normal bowel sounds, soft, no CVA tendernessGenitourinary: no urinary catheterExtremities: no edemaNeuro/DRAFTER: alertDiagnosis, Assessment PlanFree Text A P:End-stage renal disease, usually Tuesday schedule.Deconditioned statusDiarrhea improvingWe had recommended withdrawal of dialysis patient declinedRecommended hospice patient declinedHemodialysis done yesterday patient tolerated dialysis wel[Embedded Image Not Available]Labs in good rangeDialysis planned for tomorrowPatient is significantly deconditioned we have attempted to talk to her abouthospice and withdrawal of dialysis but she is not inclined unfortunately we haveto continue dialysis 3 times a weekMentally she is awake and alert and make can make her own decisions at 0808RPT#:[id number] OF REPORT Yi Brody MD-23-Apr-[address] [place] [address] [place] [address] Patient Name: NASH LLANOS : 68 Admit/Ser Date: 04/17/25 AGE: 54Attend Physician: Lesly Navarro MD [facility]: PROGRESS NOTEDATE: 04/23/2025SUBJECTIVE: The patient's family at bedside. Subjectively, feeling better andeager to get discharged to rehab facility. Tolerating diet.OBJECTIVE: GENERAL: Alert awake, comfortable, not oriented to time or place.VITAL SIGNS: Reviewed. Blood pressure is fluctuating between 160- 180systolic, diastolic is normal. No tachycardia. Heart rate between 60 to 70beats per minute. The patient is afebrile. No respiratory distress. Oxygensaturation 90% to 96% on room air. The patient is supine. No orthopnea. Noicterus. The patient is on nasal cannula oxygen.HEART: Regular rhythm.LUNGS: Bilateral air entry is present. Diminished breath sounds at bases.ABDOMEN: Soft, nontender. Generalized weakness is present.LABORATORY STUDIES: No new labs are available. The patient is being followedby electrical subcontractor.ASSESSMENT:1. End-stage renal disease, on hemodialysis 3 times a week.2. Hypertension, partly controlled.3. Chronic hypoxic respiratory failure.4. Generalized weakness.5. Chronic anemia with thrombocytopenia.PLAN: To continue the current medications. Discharge medicationreconciliation completed and discharge order placed with parameters. Codestatus is full code.PROGNOSIS: Guarded. MARTINEZ Cam/AquityDD: 04/24/2025 20:02DT: 04/24/2025 20:42Job #: [id number] by Yury Richmond MD On 05/09/2025 12:17:44 PMR#[id number] Name: VIET,NASHABE VORA Signed by Yury Richmond MD on 05/09/25 at 1217Patient Name: VIETNASH DIONY 22-Apr-2025 ROOM:Date:[id number] of Initial Eval:63956451:0 Hr 00 Mins:0 Hr 00 Mins:0 Hr 00 Mins:0 Hr 00 MinsDaily Treatment Total:0 Hr 0 MinsTreating Therapist:STEPHANIEXAEvaluating Therapist:Kristina Linda PTSubjective:PT OUT OF ROOM. 22-Apr-2025 Date:[id number] Eval:[id number]:DonnaT TREATMENT SESSION:1055:1120:0 Hr 25 Mins:0 Hr 00 MinsDaily Treatment Total:0 Hr 25 MinsSubjective:PT ID VIA WRIST BAND, CONSENTED FOR OT TX AND WAS CLEARED BYSubjective:NSG.Report of Pain?YPain Comment:Pt REPORTS 6/10 PAIN TO BILATERALPain Comment:KNEES. NURSE NOTIFIED.Precautions:FALLSPrecautions:CONTACTPrecautions:CARDIACPrecautions:DIAL YSIS (M/W/F)Current Modified Fontana Score:4:4 Moderate severe disabilBed alarm/chair alarm reset at the end of therapy:Y:YESAssessment:PT REQ MOD VCS FOR SEQUENCING TASKS, FORAssessment:PROPER HAND/FOOT PLACEMENT, PROPER BODY MECHANICS,Assessment:SAFETY PREC, PROPER BODY ORIENTATION AND SAFETYAssessment:USE OF RW AND COMPENSATORY STRATEGIES DURING BEDAssessment:MOBILITY, SUPINE<>SIT AT EOB, SITTING ACT,Assessment:SIT<>STAND PIVOT BED<>COMMODE. PT DEMO FAIRAssessment:FOLLOW THROUGH. PT REQ MOD A DURING SUPINE<>SITAssessment:AT EOB AND MAX A DURING STAND/PIVOT TO THEAssessment:COMMODE. PT REQ TOTAL A WITH CLOTHES MANAGEMENTAssessment:AND MIN A WITH PERICARE. PT DEMO POOR STANDINGAssessment:TOLERANCE AND C/O RITU KNEE PAIN OF 8-10/10 DURINGAssessment:TASKS.Assessment:Assessment:PT TOLERATED THERA EXER ON BUE WITH THERA BANDAssessment:WITH HORIZONTAL SHOULDER ABD/FLEX AND ELBOWAssessment:FLEX/EXT, OPERATIONS BUSINESS PARTNER EXER X 10REPS X 2 SETS ANDAssessment:BREATHING EXER. PT REQ MIN A AND VCS FOR PROPERAssessment:ROM PERFORMANCE. AFTER OT SESSION, PT WAS LEFTAssessment:RECLINED IN BED WITH CALL BUTTON AND TRAY TABLEAssessment:W/IN REACH. HANDOFF COMMUNICATION TO RN RE PT'SAssessment:FUNCTIONAL STATUS.Assessment:Assessment:DC RECOMMENDATION : REHABTolerance to tx:PP:POOR+Short term Goals to be achieved by (DATE): willIMPROVE SITTING BAL/DARI,TO F+/G FOR >5 MINUTES,FOR ADLSStatus:PM:PARTIALLY METPt willST:COMPLETE STRENGTHENING,6:AT MODIFIED INDEPEND LVL,EC:W/ENERGY CONS TECHNIQUEStatus:PM:PARTIALLY METPt willCOMPLETE UB DRESS/BATHING,5:WI SBA & VCs NEEDED,DGSA:W/SAFETY AWARENESSPt willGR:COMPLETE GROOMING,6:AT MODIFIED INDEPEND LVL,DGSA:W/SAFETY AWARENESSLong term Goals to be achieved by (DATE): willCT:COMPLETE COMMODE TRANSFER,3:W/MODERATE ASSISTANCE,UAD:UTILIZING ASSIST DEVICEStatus:PM:PARTIALLY METPt willTO:COMPLETE TOILETING,3:W/MODERATE ASSISTANCE,DGSA:W/SAFETY AWARENESSStatus:PM:PARTIALLY METPlan:CONT:CONTINUE OT TOWARD GOALTherapist recommended discharge needs:PostAcute:Post-acute servicesEquipment Recommended:BSC:3 IN 1 COMMODETreatment Modalities Used to Achieve Goals:ADL:ADL RETRAININGTreatment Modalities Used to Achieve Goals:MB:FUNCTIONAL MOBILITYTreatment Modalities Used to Achieve Goals:TA:THERAPEUTIC ACTIVITYTreatment Modalities Used to Achieve Goals:FRANCINE:THERAPEUTIC UE EXERCISETreatment Modalities Used to Achieve Goals:WM:WHEELCHAIR MANAGEMENTTreatment units:1S:1 UNIT SHONE/ADLTreatment units:1T:1 UNIT THERAPEUTIC EXERTreating Therapist:MYCHAL Barcenas MD- [address] [place] [address] ([facility])Nephrology Progress NoteREPORT#:[id number] REPORT STATUS: SignedDATE:04/22/25 TIME: 756PATIENT: NASH LLANOS UNIT #: [id number]#: [id number] [facility] [birth year]AGE: 54 SEX: F ATTEND: Lesly Navarro MDADM AUTHOR: Kristine Wolff MDREP SRV REP SRV TM: 0757* ALL edits or amendments must be made on the electronic/computer document *SubjectiveChief complaint:Follow-up end-stage renal diseaseReview of SystemsFree Text ROS NotesFree Text ROS Notes:Patient denies any complaints. 2 L removed in hemodialysis yesterday.ObjectivePhysical ExamGeneral appearance: cachectic/emaciated, chronically ill appearing, frail, alert, awake, orientedNeck: no JVDCardiovascular: no rubRespiratory: aerating wellAbdomen: non-tender, normal bowel sounds, soft, no CVA tendernessGenitourinary: no urinary catheterExtremities: no edemaNeuro/DRAFTER: alertResultsFindings/Data:Laboratory Tests 04/22 606 Chemistry Sodium (136 - 145 mmol/L) 135 L Potassium (3.5 - 5.1 mmol/L) 3.9 Chloride (98 - 107 mmol/L) 99 Carbon Dioxide (20 - 31 mmol/L) 19 L Anion Gap (7 - 16 mmol/L) 17 H BUN (9 - 23 mg/dL) 49 H Creatinine (0.55 - 1.02 mg/dL) 5.2 H Est GFR (CKD-EPI 2020) (>90.0) 9.2 L BUN/Creatinine Ratio (4 - 33) 9 Glucose (57 - 106 mg/dL) 76 Calcium (8.7 - 10.4 mg/dL) 8.3 L Total Bilirubin (0.3 - 1.2 mg/dL) 0.3 AST (0 - 34 U/L) 17 ALT (10 - 49 U/L) < 7 L Alkaline Phosphatase (46 - 116 U/L) 125 H Total Protein (5.7 - 8.2 g/dL) 6.2 Albumin (3.2 - 4.8 g/dL) 3.6 Globulin (1.4 - 4.8 g/dL) 2.6 Albumin/Globulin Ratio (0.7 - 3.6) 1.4Laboratory Tests 04/22 0606 Hematology WBC (4.0 - 10.5 10 3/uL) 4.9 RBC (3.93 - 5.22 10 6/uL) 3.14 L Hgb (11.2 - 15.7 g/dL) 9.1 L Hct (34.1 - 44.9 %) 32.4 L MCV (79.4 - 94.8 fL) 103.2 H MCH (25.6 - 32.2 pg) 29.0 MCHC (32.2 - 35.5 g/dL) 28.1 L RDW (11.7 - 14.4 %) 15.0 H Plt Count (150 - 400 10 3/uL) 32 L Immature Gran % (0.0 - 0.4 %) 1.8 H Neutrophils % (34.0 - 71.1 %) 73.9 H Lymphocytes % (19.3 - 51.7 %) 13.0 L Monocytes % (4.7 - 12.5 %) 7.9 Eosinophils % (0.7 - 5.8 %) 2.4 Basophils % (0.1 - 1.2 %) 1.0 Nucleated RBC % (0.0 - 0.2 %) 1.0 H Immature Gran # (0.00 - 0.03 10 3/uL) 0.09 H Neutrophils # (1.56 - 6.13 10 3/uL) 3.63 Lymphocytes # (1.18 - 3.74 10 3/uL) 0.64 L Monocytes # (0.24 - 0.63 10 3/uL) 0.39 Eosinophils # (0.04 - 0.36 10 3/uL) 0.12 Basophils # (0.01 - 0.08 10 3/uL) 0.05 Nucleated RBCs # (0.00 - 0.18 10 3/uL) 0.05Diagnosis, Assessment PlanFree Text A P:End-stage renal disease, usually Tuesday schedule.Deconditioned statusDiarrhea improvingWe had recommended withdrawal of dialysis patient declinedRecommended hospice patient declinedHemodialysis today for 3 hours fluid loss 1 L[Embedded Image Not Available]Ongoing dialysis TuesdayVery poor long-term prognosis due to cachexia generalized deconditioningNutritional supportWe may have to cross the hospice situation again depending on how she does overthe next few week as an outpatient at 0759RPT#:[id number] OF REPORT Yi Brody MD-- [address] [place] [address] [place] [address] Patient Name: NASH LLANOS : 68 Admit/Ser Date: 04/17/25 AGE: 54Attend Physician: Lesly Navarro MD [facility] PROGRESS NOTEDATE: 04/22/2025LOCATION: 205.SUBJECTIVE: Slowly improving. Still has generalized weakness, difficulty inambulation. The patient is tolerating hemodialysis.OBJECTIVE: GENERAL: Alert, awake oriented to time and place.VITAL SIGNS: Showing elevated systolic pressure, diastolic pressure is normal. No tachycardia. No respiratory distress. The patient is afebrile,oxygenating 94% to 95% on nasal cannula oxygen continuously.HEENT: The patient is supine. No orthopnea. No icterus.NECK: Supple.HEART: Regular rhythm.LUNGS: Bilateral air entry.The patient is afebrile, on oxygen supplementation.LABORATORY DATA: Reviewed. CBC on April 22 showed 4,900 white cell count,hemoglobin 9.1, platelet count 32,000. 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 Hypertension.2. End-stage renal disease, on hemodialysis.3. Chronic hypoxic respiratory failure.4. Generalized weakness.5. Chronic anemia with thrombocytopenia.PLAN: To continue current medications [facility] with stable hemoglobin and platelet count.Code status is full code. OSIEL CamK/AquityDD: 04/24/2025 09:02DT: 04/24/2025 09:55Job #: [id number] by Yury Richmond MD On 05/09/2025 12:17:42 PMPatient Name: VIETNASH VORA #[id number] at 1217Patient Name: NASH LLANOS Melanie Grcae MD-3-Apr-2025 [facility] [address] [id number] Patient Name: LAVELLE LLANOSITA DIONY : 68 Admit/Ser Date: 04/17/25 AGE: 54Attend Physician: Lesly Navarro MD [facility] PROGRESS NOTEDATE: 04/21/2025SUBJECTIVE: The patient is seen by the bedside. The patient's hemoccult ispositive, at this point, continue with dialysis. The patient's family want elia a full code. Case Management working with the patient's family fordischarge planning to a rehab. Prognosis is guarded with all the comorbidconditions.OBJECTIVE: VITAL SIGNS: Temperature 97.2, pulse rate of 62, respiratory rateof 18, blood pressure 132/86.HEENT: Pupils reacting to the light.LUNGS: Decreased breath sounds with expiratory wheezing.HEART: S1, S2. Regular rate and rhythm.ABDOMEN: Soft. Bowel sounds present.NEURO: Awake, alert, oriented x3.LABORATORY RESULTS: Sodium 139, potassium 3.5, chloride 100, bicarb 22, BUN31, creatinine 4.1, AST 22, ALT 7, ALP 146. WBC 4.5, hemoglobin 8.9, plateletsof 25.ASSESSMENT AND PLAN:1. End-stage renal disease, on hemodialysis.2. Cachexia.3. Anemia with Hemoccult-positive stool.4. Thrombocytopenia, worsening.5. Hypertensive heart disease.PLAN: Awaiting for bone marrow biopsy to be done by H[facility]ology Services. Willneed GI Service as hemoccult is positive with cachexia. Will need a furtherworkup in the form of endoscopy, colonoscopy. Continue with Cardura forhypertension, Retacrit and iron for anemia, Synthroid for hypothyroidism,Percocet for pain control. Further discharge planning as per the patient'sprogress. ABI Marcial/TiffanyDD: 04/21/2025 13:09DT: 04/21/2025 16:22Job #: [id number] by Lesly Navarro MD On 04/30/2025 01:03:14 PMPatient Name: NASH LLANOS #[id number] at 0103Patient Name: NASH LLANOS 20-Apr-2025 ROOM:205Date:[id number] of Initial Eval:[id number]:0 Hr 00 Mins:0 Hr 00 Mins:0 Hr 00 Mins:0 Hr 00 MinsDaily Treatment Total:0 Hr 0 MinsTreating Therapist:[id number] Therapist:Kristina Linda - PTSubjective:PATIENT WAS FOUND IN LETHARGIC CONDITIONSubjective:AT TIME OF VISIT AND FOLLOWINGSubjective:SUBSEQUENT ATTEMPTS. WILL F/U TOMORROW. Oreilly MD-2-2024 [facility] ([facility])Nephrology Progress NoteREPORT#:[id number] REPORT STATUS: SignedDATE:04/20/25 TIME: 1321PATIENT: NASH LLANOS UNIT #: [id number]#: [id number] [facility] [birth year]AGE: 54 SEX: F ATTEND: Lesly Navarro MDADM AUTHOR: Jennie Ross MDREP SRV REP SRV TM: 1321* ALL edits or amendments must be made on the electronic/computer document *SubjectiveChief complaint:Follow-up end-stage renal diseaseReview of SystemsFree Text ROS NotesFree Text ROS Notes:Patient denies any complaints. 2 L removed in hemodialysis yesterday.ObjectiveGeneralVS/I O:Vital Signs: Date Time Temp Pulse Resp B/P B/P Pulse O2 O2 Flow FiO2 Mean Ox Delivery Rate 04/20 1230 64 133/88 08/02 1000 Nasal 2 cannula 04/20 0848 64 133/88 08/ 0848 64 133/88 08/ 0644 97.3 64 16 133/88 103.0 92 Room air / 0600 63 125/49 08/ 0220 98.4 63 125/49 74.4 94 / 0032 69 150/46 04/19 2142 Nasal 2 cannula 04/19 2130 69 117/39 / 1902 98.6 69 18 117/39 65.0 92 Nasal cannula 04/19 1750 63 159/51 08/ 1534 159/51 04/19 1459 63 142/46 / 1450 97.5 63 16 142/46 77.8 91 Room air 04/19 1415 98.6 62 18 144/35 Nasal 2 hour I O ending at 0700: 04/20 0700 04/19 1900 Intake Total Output Total 1999 Balance -1999 Output, 1999 HemodialysisPATIENT WEIGHT:Weight (lb):Weight (oz):Weight (kg): 56.818MedicationsActive Meds + DC'd Last 24 HrsMiscellaneous Information (PHARMACY TO EVALUATE) 1 EA ASDIR MISCEpoetin Eh-epbx (RETACRIT 10,000 UNIT/ML (ESRD)) 20,000 UNIT DIALYSIS-DOSEDURING IV (CKD)Potassium Chloride (K- DUR 20 MEQ TABLET SA) 20 MEQ TID PO (DC)Lidocaine/Prilocaine (LIDOCAINE-PRILOCAINE CREAM) 1 APPL ASDIR PRN TOPICAL (CKD)Atorvastatin Calcium (LIPITOR 40MG TABLET) 80 MG BEDTIME POEzetimibe (ZETIA 10 MG TABLET) 10 MG DAILY POIsosorbide Mononitrate (IMDUR 60 MG TABLET SA) 60 MG DAILY POLevothyroxine Sodium (SYNTHROID 75 MCG TABLET) 75 MCG DAILY@0600 POCitalopram Hydrobromide (CeleXA 20 MG TAB) 20 MG BEDTIME PODoxazosin Mesylate (CARDURA 1 MG TABLET) 2 MG BID POPeruvian Balsam (BALSOM JADYN AND CASTOR OIL) 1 APPL BID TOPICALSodium Chloride (NORMAL SALINE LOCK/FLUSH) 10 ML Q12HR IVTopiramate (TOPAMAX 25 MG TAB) 50 MG BID POHydralazine HCl (HYDRALAZINE 25 MG TABLET) 75 MG Q6HR PONitroglycerin (NITROSTAT 0.4 MG TABLET SL) 0.4 MG Q5M PRN PRN SLOxycodone/Acetaminophen (oxyCODONE/APAP 10/325 MG TAB) 1 TAB Q6H PRN PRNPOSodium Chloride (NORMAL SALINE LOCK/FLUSH) 10 ML ASDIR PRN IVDietitian nutrition assessmentThe data set between the solid lines has been imported from the dietitian'prasanna. __BMI Calculated: 19.6Nutrition related diagnosis: Moderate malnutritionNutrition diagnosis details:Nutrition problem: Moderate malnutritionNutrition etiology: Chronic diseaseNutrition signs and symptoms: Moderate muscle loss clavicle, shoulders, quads,Moderate subcutaneous fat loss, buccal, tricep, wt loss over 2 year periodNutrition prescription: Diet as ordered, pt refuses any type of proteinsupplementDietitian name: Lesa Rangel, RDAssessment completed: 04/20/25 Physica l ExamGeneral appearance: chronically ill appearing, frailNeck: no JVDCardiovascular: no rubRespiratory: aerating wellAbdomen: non-tender, normal bowel sounds, soft, no CVA tendernessGenitourinary: no urinary catheterExtremities: no edemaNeuro/DRAFTER: alertResultsFindings/Data:Laboratory Tests 04/20 321 Chemistry Sodium (136 - 145 mmol/L) 139 Potassium (3.5 - 5.1 mmol/L) 3.5 Chloride (98 - 107 mmol/L) 100 Carbon Dioxide (20 - 31 mmol/L) 22 Anion Gap (7 - 16 mmol/L) 17 H BUN (9 - 23 mg/dL) 31 H Creatinine (0.55 - 1.02 mg/dL) 4.1 H Est GFR (CKD-EPI 2020) (>90.0) 12.2 L BUN/Creatinine Ratio (4 - 33) 7 Glucose (57 - 106 mg/dL) 101 Calcium (8.7 - 10.4 mg/dL) 8.0 L Total Bilirubin (0.3 - 1.2 mg/dL) 0.2 L AST (0 - 34 U/L) 22 ALT (10 - 49 U/L) < 7 L Alkaline Phosphatase (46 - 116 U/L) 146 H Total Protein (5.7 - 8.2 g/dL) 6.2 Albumin (3.2 - 4.8 g/dL) 3.6 Globulin (1.4 - 4.8 g/dL) 2.6 Albumin/Globulin Ratio (0.7 - 3.6) 1.4Laboratory Tests 04/20 321 Hematology WBC (4.0 - 10.5 10 3/uL) 4.5 RBC (3.93 - 5.22 10 6/uL) 3.04 L Hgb (11.2 - 15.7 g/dL) 8.9 L Hct (34.1 - 44.9 %) 31.8 L MCV (79.4 - 94.8 fL) 104.6 H MCH (25.6 - 32.2 pg) 29.3 MCHC (32.2 - 35.5 g/dL) 28.0 L RDW (11.7 - 14.4 %) 15.2 H Plt Count (150 - 400 10 3/uL) 25 CL Immature Gran % (0.0 - 0.4 %) 0.9 H Neutrophils % (34.0 - 71.1 %) 75.1 H Lymphocytes % (19.3 - 51.7 %) 11.2 L Monocytes % (4.7 - 12.5 %) 9.9 Eosinophils % (0.7 - 5.8 %) 2.2 Basophils % (0.1 - 1.2 %) 0.7 Nucleated RBC % (0.0 - 0.2 %) 0.7 H Immature Gran # (0.00 - 0.03 10 3/uL) 0.04 H Neutrophils # (1.56 - 6.13 10 3/uL) 3.41 Lymphocytes # (1.18 - 3.74 10 3/uL) 0.51 L Monocytes # (0.24 - 0.63 10 3/uL) 0.45 Eosinophils # (0.04 - 0.36 10 3/uL) 0.10 Basophils # (0.01 - 0.08 10 3/uL) 0.03 Nucleated RBCs # (0.00 - 0.18 10 3/uL) 0.03Results: labs reviewed, vital signs reviewedDiagnosis, Assessment PlanFree Text A P:End-stage renal disease, usually Tuesday schedule. Hadhemodialysis yesterday and 2 L removed. Please call with questions tomorrow.Next dialysis Tuesday.Deconditioned statusCachexia muscle wastingPatient unable to care for herselfHypokalemia improved with replacement. Check magnesium.Overall poor prognosis. Family refused hospice. at 1324RPT#:[id number] OF REPORT Melanie Grace MD-2-Apr-2025 [facility] [address] [place] [address] Patient Name: NASH LLANOS : 68 Admit/Ser Date: 04/17/25 AGE: 54Attend Physician: Lesly Navarro MD [facility] PROGRESS NOTEDATE: 04/20/2025SUBJECTIVE: The patient is seen by the bedside. Had 2 L of fluid taken out inthe dialysis yesterday. At this point, wanting to be evaluated for dischargeplanning to the rehab.OBJECTIVE: VITAL SIGNS: Temperature 97.4, pulse rate 64, respiratory rate of18, and blood pressure 133/88.HEENT: Pupils reacting to the light.LUNGS: Decreased breath sounds.HEART: S1, S2. Regular rate and rhythm.ABDOMEN: Soft. Bowel sounds present.NEURO: Awake, alert, oriented x3.LABORATORY RESULTS: Sodium 139, potassium 3.5, chloride 100, bicarb 22, BUN31, creatinine 4.1. WBC 4.5, hemoglobin 8.9, hematocrit 31.8, platelets 25.ASSESSMENT AND PLAN:1. End-stage renal disease, on hemodialysis.2. Thrombocytopenia.3. Cachexia.4. Severe protein- calorie malnutrition.PLAN: At this point, the patient was consulted by Oncology, who suggested abone marrow biopsy, was not ordered. At this point[facility] cannot be taken care of at home. [facility] Clinically, follow up as per the patient's progress. ABI Marcial/TiffanyDD: 04/20/2025 21:09DT: 04/21/2025 02:55Job #: [id number] by Lesly Navarro MD On 04/30/2025 01:03:15 PMR#[id number] at 0103Patient Name: NASH LLANOS 19-Apr-2025 [facility] CenterDate:[id number] of Initial Eval:[id number]:0 Hr 00 Mins:0 Hr 00 Mins:0 Hr 00 Mins:0 Hr 00 MinsDaily Treatment Total:0 Hr 0 MinsTreating Therapist:[id number] Therapist:Kristina Linda PTSubjective:PT WAS OOR GETTING DIALYSIS, UNABLE TOSubjective:TX PT AT THIS TIME. PT TO F/U TOMORROW. Markie Kolb MD-1-Apr-2025 [facility] ([facility])Chet/Oncology Consult NoteREPORT#:[id number] REPORT STATUS: SignedDATE:04/19/25 TIME: 1639PATIENT: NASH LLANOS UNIT #: [id number]#: [id number] [facility]-ADOB: [birth year]AGE: 54 SEX: F ATTEND: Lesly Navarro MDADM AUTHOR: Tee Aden MDREP SRV REP SRV TM: 1639* ALL edits or amendments must be made on the electronic/computer document *History of Present IllnessRequesting clinician: Dr. Kevyn Zapata for consult:ThrombocytopeniaChief complaint:WeaknessPCP:PCP: Chad Stewart MDHPI:54yo lady ESRD on HD, CHF, HTN, DM2, CAD, COPD, h/o Stage I RCC now presentswith weakness and confusion. Noted to be anemic and thrombocytopenic.History - Adult longitudinalPast medical history:Reports: Anemia, Asthma, Congestive heart failure, COPD, Coronary artery disease, Diabetes mellitus, Hypertension.Additional medical history:Hypertension Pulmonary hypertension Diabetes mellitus type 2, ESRD, renal cell carcinoma grade 1, Dyslipidemia, Coronary artery disease s/p CAGB and stenting, COPD, Hypothyroidism, GERD, Chronic pain syndromePast surgical history:Reports: Appendectomy, CABG, Cholecystectomy, , Hysterectomy,Tonsillectomy, Vascular procedure (cardiac stents), Bilateral tubal ligation.Additional surgical history:PD catheter placementFamily history:Reports: Cancer, Diabetes, Hypertension.Additional family history:No history of chronic kidney disease or end-stage renal diseaseAlcohol use: Denies EtOH useDrug use: Denies recreational drugsSmoking status for patients 13 years old or older: Current some day smokerOther social history: Good social supportMedications:Home Medications:Medication Dose/Rte/Freq Days Qty Entered Last Max Daily Dose Reviewed clopidogreL (Plavix) 75 MG PO DAILY 03/19/21 04/17/25Strength: 75 MG TAB 0649 1742 Isosorbide Mononitrate ER 60 MG PO DAILY 05/31/23 04/17/25 (Imdur) 0946 1740Strength: 60 MG TAB.ER.24H Levothyroxine (Synthroid) 75 MCG PO DAILY 05/31/23 04/17/25Strength: 75 MCG TAB 0952 1742 oxyCODONE/Acetaminophen 1 TAB PO 06/04/23 04/17/25 (Percocet 10-325) Q6H PRN PRN PAIN 1038 1742Strength: 10 MG-325 MG TAB SCALE 7-10 hydrALAZINE (Apresoline) 75 MG PO Q6HR 11/23/23 04/17/25Strength: 50 MG TAB 2019 1741 Med List Information 1 EA MISC 11/23/23 04/17/25 (*Med List Information) .CANCEL AT 2023 1741Strength: 1 EACH EACH DISCHARGE Topiramate (Topamax) 50 MG PO BID 04/17/25 04/17/25Strength: 25 MG TAB 1315 1742 Nitroglycerin SL 0.4 MG SL 04/17/25 04/17/25(Nitrostat)Strength: 0.4 MG TAB.SL Q5M PRN PRN CHEST 1320 1742 PAIN Atorvastatin (Lipitor) 80 MG PO DAILY 05/31/23 04/17/25Strength: 80 MG TAB 0954 1741 Ezetimibe (Zetia) 10 MG PO DAILY 10/26/20 04/17/25Strength: 10 MG TAB 1327 1742 Escitalopram (Lexapro) 10 MG PO BEDTIME 08/27/24 04/17/25Strength: 10 MG TAB 2342 1742 PANTOPRAZOLE 20 MG PO DAILY 12/25/19 04/17/25 (PROTONIX) 0941 1742Strength: 20 MG TAB. acetaZOLAMIDE (Diamox) 500 MG PO BID 12/10/20 04/17/25Strength: 250 MG TAB 204 174 CarvediloL (Coreg) 25 MG PO BID MEALS 30 60 06/07/23 04/17/25Strength: 25 MG TAB 0659 174 amLODIPine (Norvasc) 10 MG PO DAILY 30 30 06/07/23 04/17/25Strength: 10 MG TAB 0703 174 Doxazosin (Cardura) 2 MG PO BID 60 12/08/23 04/17/25Strength: 2 MG TAB 1411 1741Current Hospital Medications:Blood Formation,Coagulation Sig/Inocencia Start time LastMedication Dose Route Stop Time Status AdminEpoetin Eh-epbx 20,000 UNIT DIALYSIS-DOSE DURING 04/19 1124 CKD 04/19(RETACRIT 10,000 IV 1143UNIT/ML (ESRD))Cardiovascular Drugs Sig/Inocencia Start time Last Medication Dose Route Stop Time Status Admin Atorvastatin Calcium 80 MG BEDTIME 04/18 2100 AC 04/18 (LIPITOR 40MG TABLET) PO 223 Ezetimibe 10 MG DAILY 04/18 09 AC 04/19 (ZETIA 10 MG TABLET) PO 0851 Isosorbide 60 MG DAILY 04/18 09 AC 04/19 Mononitrate PO 0851 (IMDUR 60 MG TABLET SA) Doxazosin Mesylate 2 MG BID 04/17 2100 AC 04/19 (CARDURA 1 MG TABLET) PO 0851 Hydralazine HCl 75 MG Q6HR 04/17 1800 AC 04/19 (HYDRALAZINE 25 MG PO 0525 TABLET) Nitroglycerin 0.4 MG Q5M PRN PRN 04/17 174 AC (NITROSTAT 0.4 MG SL TABLET SL)Central Nervous System Agents Sig/Inocencia Start time Last Medication Dose Route Stop Time Status Admin Citalopram 20 MG BEDTIME 04/17 2100 AC 04/18 Hydrobromide PO 223 (CeleXA 20 MG TAB) Topiramate 50 MG BID 04/17 2100 AC 04/19 (TOPAMAX 25 MG TAB) PO 0851 Oxycodone/ 1 TAB Q6H PRN PRN 04/17 1746 AC 04/19 Acetaminophen PO 1536 (oxyCODONE/APAP 10/ 325 MG TAB)Devices Sig/Inocencia Start time Last Medication Dose Route Stop Time Status Admin Sodium Chloride 10 ML Q12HR 04/17 2100 AC 04/19 (NORMAL SALINE LOCK/ IV 0852 FLUSH) Sodium Chloride 10 ML ASDIR PRN 04/17 1330 AC (NORMAL SALINE LOCK/ IV FLUSH)Electrolytic, Caloric, And Galina Sig/Inocencia Start time Last Medication Dose Route Stop Time Status Admin Potassium Chloride 20 MEQ TID 04/19 0900 AC 04/19 (K-DUR 20 MEQ TABLET PO 04/19 2101 1459 SA)Hormones And Synthetic Substit Sig/Inocencia Start time Last Medication Dose Route Stop Time Status Admin Levothyroxine Sodium 75 MCG DAILY@0600 04/18 0600 AC 04/19 (SYNTHROID 75 MCG PO 0525 TABLET)Skin And Mucous Membrane Agent Sig/Inocencia Start time Last Medication Dose Route Stop Time Status Admin Lidocaine/Prilocaine 1 APPL ASDIR PRN 04/19 0719 CKD (LIDOCAINE- TOPICAL PRILOCAINE CREAM) Martiniquais Balsam 1 APPL BID 04/17 2100 AC 04/19 (BALSOM JADYN AND TOPICAL 0852 CASTOR OIL)Other Sig/Inocencia Start time Last Medication Dose Route Stop Time Status Admin Miscellaneous 1 EA ASDIR 04/19 1130 AC Information MISC (PHARMACY TO EVALUATE)Allergies:Coded Allergies:insulin glargine (From BASAGLAR KWIKPEN U-100 INSULIN) (Intermediate, FACE NUMB04/17/25)lisinopril (Intermediate, COUGH 04/17/25)Review of SystemsAll systems rev neg: except as markedObjectivePhysical ExamVS:Vital SignsDate Temp Pulse Resp B/P B/P Mean Pulse Ox YvT451/-04/19 36.4-37.0 59-68 16-19 122-180/35-75 74.0-100.3 91-98Last Documented: Result Date Time B/P 159/51 04/19 1534 Pulse 63 04/19 1459 Pulse Ox 91 04/19 1450 B/P Mean 77.8 04/19 1450 O2 Delivery Room air 04/19 1450 Temp 36.4 08/ 1450 Resp 16 04/19 1450 O2 Flow Rate 2 04/19 1415PATIENT WEIGHT:Weight (lb):Weight (oz):Weight (kg): 56.818General appearance: alert, awakeHEENT: anicteric, atraumaticNeck: no lymphadenopathyCardiovascular: regular rate and rhythm, normal heart soundsRespiratory: aerating wellAbdomen: soft, no distention, no guardingExtremities: moves allMusculoskeletal: normal inspectionNeuro/DRAFTER: alert, oriented X 3Skin: dry, intactResultsFindings/Data:Recent ImpressionsCOMPUTERIZED TOMOGRAPHY - CT BRAIN W/O CONTRAST 04/17 1135 Report Impression - Status: SIGNED Entered: 04/17/2025 1221IMPRESSION:No acute intracranial pathology.Electronically signed by: Saman Lopez MD :19 PM EDT RPWorkstation: [id number] By: YVETTE LOPEZ, MDRADIOLOGY - CHEST PORTABLE 04/17 1150 Report Impression - Status: SIGNED Entered: 04/17/2025 1224IMPRESSION:Bilateral airspace disease, more pronounced on the right thanthe left. The findings may represent pulmonary edema. Pneumoniacannot be excluded.Electronically signed by: Saman Lopez MD :21 PM EDT RPWorkstation: [id number] By: YVETTE LOPEZ, MDCOMPUTERIZED TOMOGRAPHY - CT CHEST W/O CONTRAST 04/17 2130 Report Impression - Status: SIGNED Entered: 04/18/2025 0417IMPRESSION:1. Cardiomegaly with postthoracotomy changes. Right lower lobelateral basal segment infiltrate. Left basal atelectasis.Interval development of tiny 2 mm nodule in the posteriorsegment of the right upper lobe. Since this represents a newfinding further workup is recommended. This is too small to becharacterized by PET scan. Therefore, three-month follow-up tocheck stability of this noduleThis exam was performed according to our departmentaldose-optimization program which includes automated exposurecontrol, adjustment of the mA and/or kV according to patientsize and/or use of iterative reconstruction technique.Electronically signed by: Jasbir Machuca MD 4:15 AM EDT RPWorkstation: [id number] By: SHA MACHUCA M.D.Radiology data:Recent ImpressionsCOMPUTERIZED TOMOGRAPHY - CT BRAIN W/O CONTRAST 04/17 1135 Report Impression - Status: SIGNED Entered: 04/17/2025 1221IMPRESSION:No acute intracranial pathology.Electronically signed by: Saman Lopez MD :19 PM EDT RPWorkstation: [id number] By: YVETTE LOPEZ, MDRADIOLOGY - CHEST PORTABLE 04/17 1150 Report Impression - Status: SIGNED Entered: 04/17/2025 1224IMPRESSION:Bilateral airspace disease, more pronounced on the right thanthe left. The findings may represent pulmonary edema. Pneumoniacannot be excluded.Electronically signed by: Saman Lopez MD :21 PM EDT RPWorkstation: [id number] By: YVETTE LOPEZ, MDCOMPUTERIZED TOMOGRAPHY - CT CHEST W/O CONTRAST 04/17 2130 Report Impression - Status: SIGNED Entered: 04/18/2025 0417IMPRESSION:1. Cardiomegaly with postthoracotomy changes. Right lower lobelateral basal segment infiltrate. Left basal atelectasis.Interval development of tiny 2 mm nodule in the posteriorsegment of the right upper lobe. Since this represents a newfinding further workup is recommended. This is too small to becharacterized by PET scan. Therefore, three-month follow- up tocheck stability of this noduleThis exam was performed according to our departmentaldose-optimization program which includes automated exposurecontrol, adjustment of the mA and/or kV according to patientsize and/or use of iterative reconstruction technique.Electronically signed by: Jasbir Machuca MD 4:15 AM EDT RPWorkstation: [id number] By: SHA MACHUCA M.D.Diagnosis, Assessment PlanFree Text DxA P NotesFree Text DxA P Notes:54yo lady ESRD on HD, CHF, HTN, DM2, CAD, COPD, h/o Stage I RCC now presentswith weakness and confusion. Noted to be anemic and thrombocytopenic.1. Chronic Thrombocytopenia:Has records from prior hospitalizations that her thrombocytopenia is chronic butdoes appear to be progressive. Could be due to ITP or a primary bone marrowdisorder as she is also anemic with RBC macrocytosis. Recommend bone marrowbiopsy.Transfuse for platelet count <20kTransfuse for Hgb <7g/dlOutpatient follow-up on bone marrow biopsy. at 1659RPT#:[id number] OF REPORT 19-Apr-2025 Date:[id number]:[facility] CenterSubjective:PT. UNAVAILABLE FOR OT TX. RN REPORTS PT IS AT DIALYSIS. Jalen Barcenas MD- [address] [place] [address])Nephrology Progress NoteREPORT#:[id number] REPORT STATUS: SignedDATE:04/19/25 TIME: 0747PATIENT: NASH LLANOS UNIT #: [id number]#: [id number] [facility]-ADOB: [birth year]AGE: 54 SEX: F ATTEND: Lesly Navarro MDADM AUTHOR: Kristine Wolff MDREP SRV REP SRV TM: 0747* ALL edits or amendments must be made on the electronic/computer document *SubjectiveChief complaint:Weakness unable to care for herself known case of end-stage renal disease ondialysis 3 times a weekObjectiveGeneralVS/I O:Vital Signs: Date Time Temp Pulse Resp B/P B/P Pulse O2 O2 Flow FiO2 Mean Ox Delivery Rate 04/19 658 97.5 68 16 163/69 100.3 98 Room air 04/19 05 61 151/53 04/19 0237 97.9 61 151/53 85.5 93 Nasal cannula 04/19 010 62 180/52 07/31 2258 Nasal 3 cannula 04/18 2235 60 122/50 04/18 1937 97.7 59 19 122/50 74.0 92 Nasal cannula 04/18 1805 60 137/75 04/18 1631 97.2 60 137/75 95.4 92 Nasal cannula 04/18 1300 62 155/70 04/18 1032 62 155/70 04/18 1031 62 155/70 04/18 1000 Nasal 3 cannula 04/18 0840 97.5 59 16 132/53 79.4 98 Nasal [id number] hour I O ending at 0700: 04/19 1900 Intake Total 250.00 Output Total Balance 250.00 Intake, IV 10.00 Intake, Oral 240PATIENT WEIGHT:Weight (lb):Weight (oz):Weight (kg): 56.818Physical ExamGeneral appearance: cachectic/emaciated, chronically ill appearing, frail, alert, awake, orientedNeck: no JVDCardiovascular: no rubRespiratory: aerating wellAbdomen: non-tender, normal bowel sounds, soft, no CVA tendernessGenitourinary: no urinary catheterExtremities: no edemaNeuro/DRAFTER: normal speechResultsFindings/Data:Current Medications Sig/Inocencia Start time Last Medication Dose Route Stop Time Status Admin Lidocaine/Prilocaine 1 APPL ASDIR PRN 04/19 07 CKD TOPICAL Atorvastatin Calcium 80 MG BEDTIME 04/18 PO 223 Clopidogrel Bisulfate 75 MG DAILY 04/18 0900 DC PO Ezetimibe 10 MG DAILY 04/18 09 AC 04/18 PO 1031 Isosorbide 60 MG DAILY 04/18 09 AC 04/18 Mononitrate PO 1032 Levothyroxine Sodium 75 MCG DAILY@04/18 0600 AC 04/19 PO 0525 Citalopram 20 MG BEDTIME 04/17 2100 AC 04/18 Hydrobromide PO 2234 Doxazosin Mesylate 2 MG BID 04/17 PO 223 Martiniquais Balsam 1 APPL BID 04/17 TOPICAL 2236 Sodium Chloride 10 ML Q12HR 04/17 2100 04/18 IV 2236 Topiramate 50 MG BID 04/17 PO 223 Hydralazine HCl 75 MG Q6HR 04/17 1800 AC 04/19 PO 0525 Nitroglycerin 0.4 MG Q5M PRN PRN 04/17 1746 AC SL Oxycodone/ 1 TAB Q6H PRN PRN 04/17 1746 AC 04/18 Acetaminophen PO 1529 Sodium Chloride 10 ML ASDIR PRN 04/17 1330 AC IVDiagnosis, Assessment PlanFree Text A P:End-stage renal diseaseDeconditioned statusCachexia muscle wastingPatient unable to care for herself[Embedded Image Not Available]Chronic hypokalemiaSecondary to GI loss at KCl 20 t.i.d.For 6 doses hemodialysis today for 3 hours 4K dialysate if possible if not a 3Kdialysate will Sridevi have recommended hospice patient's bed-bound status and deconditioned statusalso compassionate care and the best alternative with withdrawal of dialysisprovided patient and family agrees at 0750RPT#:[id number] OF REPORT Melanie Grace MD-1-Apr-2025 [facility] [address] [place] [address] Patient Name: NASH LLANOS : 68 Admit/Ser Date: 04/17/25 AGE: 54Attend Physician: Lesly Navarro MD [facility] PROGRESS NOTEDATE: 04/19/2025SUBJECTIVE: The patient is seen by the bedside. The patient has been confusedabout going home with home hospice versus going to the SNF. The patient'shusband present at the bedside during my interview with the patient. Thepatient wanted to talk to Hospice, notified the same to the nursing to consulthospice to see if the patient is a candidate for discharging hospice and thepatient's family later agreed to the SNF. In the meantime, the patientsecondary to the thrombocytopenia, consulted by Hematology for which thepatient will be getting a bone marrow biopsy.OBJECTIVE: VITAL SIGNS: Temperature 98.4, pulse rate 68, respiratory rate of18, blood pressure 117/39.HEENT: Pupils reacting to the light.LUNGS: Decreased breath sounds.ABDOMEN: Soft. Bowel sounds present.NEURO: Awake, alert, oriented x3.LABORATORY RESULTS: Serum iron 78, TIBC 202, B12 410, ferritin 607. C diffwas negative. WBC 6.4, hemoglobin 8.3, platelets 30.ASSESSMENT: 54-year-old patient with;1. End-stage renal disease, on hemodialysis.2. Thrombocytopenia.3. Severe protein-calorie malnutrition.4. Chronic back pain.PLAN: Recheck CBC in the morning. Consult Case Management for discharge tothe SNF. Continue with dialysis per Nephrology, Cardura for hypertension,oxycodone for back pain, Lipitor for hyperlipidemia. Further dischargeplanning based upon the bone marrow report and the patient's family acceptancefor a assisted facility. ABI Marcial/TiffanyDD: 04/19/2025 20:58DT: 04/19/2025 23:30Job #: [id number] by Lesly Navarro MD On 04/30/2025 01:03:13 PMR#[id number] Name: NASH LLANOS Signed by Lesly Navarro MD on 04/30/25 at 0103Patient Name: NASH LLANOS Jalen Barcenas MD-[address] [place] [address] Patient Name: NASH LLANOS : 68 Admit/Ser Date: 04/17/25 AGE: 54Attend Physician: Lesly Navarro MD [facility]: CONSULTATIONDATE OF CONSULTATION: 04/18/2025DMITTING PHYSICIAN: Lesly Navarro, MDCONSULTING PHYSICIAN: Kristine Wolff, MDREASON FOR CONSULTATION: Renal failure.HISTORY OF PRESENT ILLNESS: This is a 54-year-old female, known case ofend-stage renal disease, on hemodialysis Tuesday, Tuesday, Tuesday, presentedto the hospital following diarrhea, nausea, increasing weakness, and confusion. She is currently awake and alert. She is unable to care for herself anymoreat home. She apparently left from dialysis 4 kg above her dry weight. Thiswas discussed with the dialysis staff, but the patient presented to thespital with generalized weakness, unable to care for herself.PAST MEDICAL HISTORY: End-stage renal disease, diabetes mellitus type 2,hypertension, renal cell carcinoma, dyslipidemia, COPD, pulmonary hypertension.SOCIAL HISTORY: Remote history of smoking. No history of alcohol abuse.OTHER SURGICAL HISTORY: AV fistula placement, coronary artery bypass surgery,and peritoneal dialysis catheter placement with failed peritoneal dialysis.REVIEW OF SYSTEMS:Otherwise unremarkable.HOSPITAL MEDICATIONS: Currently atorvastatin 80 mg a day, Imdur 60 mg a day,Zetia 10 mg a day, Plavix 75 mg a day x1 dose, Synthroid 75 mcg a day, Jxtuzgj20 b.i.d., Cardura 2 mg b.i.d., Celexa 20 at bedtime, hydralazine 75 q.6h p.o.,oxycodone p.r.n.ALLERGIES: LISINOPRIL AND INSULIN GLARGINE.PHYSICAL EXAMINATION:GENERAL: The patient is cachectic chronically ill-looking.VITAL SIGNS: Blood pressure 140/60, pulse rate 58, respirations 20.HEENT: Normocephalic.Heart: S1, S2 is regular.LUNGS: Distant breath sounds at bases.ABDOMEN: Soft. Bowel sounds present. No guarding. No tenderness.EXTREMITIES: No edema. AV fistula has good bruit. The patient issignificantly deconditioned, cachectic with multiple skin lesions, especiallyin the left arm where the AV fistula is.Patient Name: NASH LLANOS DATA: Hemoglobin is 8.3, platelet count of 30,000, potassium of2.5, BUN 40, creatinine is 4.4.IMPRESSION:1. End-stage renal disease.2. Cachexia.3. Failure to thrive.4. Muscle wasting.5. Increasing weakness.6. The patient is unable to care for herself.DISCUSSION:1. From the Renal standpoint, 1 dose of KCl 40 mEq p.o. will be given today.No further potassium would be needed.2. Anemia secondary to renal failure noted.3. Deconditioned status.4. Muscle wasting.5. Skin lesions in the left arm. We will need Dermatology consult as anoutpatient in case this is malignant.6. Thrombocytopenia. Platelet count is 30,000. Previous platelet counts havebeen on the low side in the 55,000 to 60,000. This appears to be chronic. Ifneed, get Hematology involved.From my standpoint, we will arrange for dialysis in the hospital today. Thepatient's general condition is very poor. I have asked if she has a livingwill, she does not have a living well. I would like to get a hospiceevaluation done as the patient has failure to thrive is in overall general poorcondition, unable to care for herself. The patient says she has not thoughtabout end of life issues. Case Management to assist in this regard.Otherwise, hospice consult has been ordered, but we will plan for dialysistomorrow. Towards the end of life with multi systems failing, hospice would caitlin reasonable option. The patient is awake and alert and will think about itand discuss with Case Management. Otherwise, dialysis planned in-housetomorrow. DRAGAN Reed/AquclaytonDD: 04/18/2025 08:19DT: 04/18/2025 08:55Job #: [id number] by Dee Dee Wolff MD On 04/30/2025 06:55:19 [facility]#[id number] at 0655Patient Name: VIETNASH Melanie Grace MD-18-Apr-2025 [facility] [address] [place] [address] Patient Name: NASH LLANOS : 68 Admit/Ser Date: 04/17/25 AGE: 54Attend Physician: Lesly Navarro MD [facility]: PROGRESS NOTEDATE: 04/18/2025SUBJECTIVE: The patient is seen by the bedside. The patient is having someloose stools. Dr. Wolff suggested hospice. The patient is agreeable withhospice, will be consulting Case Management for discharging to hospice.OBJECTIVE: VITAL SIGNS: Temperature 98.4, pulse rate 62, respiratory rate of18, and blood pressure 155/70.HEENT: Pupils reacting to the light.LUNGS: Decreased breath sounds.ABDOMEN: Soft. Bowel sounds present.NEURO: Awake, alert, and oriented x3.IMAGING: The patient did have a CT scan of the chest done without contrastthat was showing cardiomegaly with post thoracotomy changes, right lower lobelateral basilar infiltrate.ASSESSMENT: A 54-year-old patient with;1. End-stage renal disease, on hemodialysis.2. Severe protein-calorie malnutrition.3. Hypertension.4. Major depressive disorder.5. Hypothyroidism.6. Chronic back pain.PLAN: Continue with Percocet for pain control, Synthroid for hypothyroidism,Lipitor for hyperlipidemia. The patient was suggested hospice by Nephrology.Will be consulting Case Management for hospice. ABI Marcial/TiffanyDD: 04/18/2025 14:02DT: 04/18/2025 14:12Job #: [id number] by Lesly Navarro MD On 04/30/2025 01:03:12 PMR#[id number] at 0103Patient Name: NASH LLANOS Tamica Nunez G-58-Luj17-Apr-2025 [facility] ([facility])Pharmacy Prog.Note-Med RecREPORT#:[id number] REPORT STATUS: SignedDATE:04/17/25 TIME: 1322PATIENT: NASH LLANOS UNIT #: [id number]#: [id number] [facility] 69AGE: 54 SEX: F ATTEND: Lesly Navarro MDADM AUTHOR: Mayra Davey RREP SRV REP SRV TM: 1322* ALL edits or amendments must be made on the electronic/computer document *Mayra Davey Ronn 04/17/25 1322:Pharmacy Med History ReviewPrimary Care ProviderPCP: PCP: hCad Stewart MDPharmacfred Med History ReviewSource of information: interviewed pt/caregiver, called PCP, called outptpharmacy, reviewed med claims dataMed Rec report: yesAllergies:Coded Allergies:insulin glargine (From BASAGLAR Freeze TagPEN U- 100 INSULIN) (Intermediate, FACE NUMB04/17/25)lisinopril (Intermediate, COUGH 04/17/25)Blank Hannon E 04/17/25 1740:Pharmacy Med History ReviewPharmacy Med History ReviewInterpreter: Order Dispatcher: NoAdmission Med Rec:Scheduled MedicationsacetaZOLAMIDE (Diamox) 500 MG PO BID (Reported)amLODIPine (Norvasc) 10 MG PO DAILYAtorvastatin (Lipitor) 80 MG PO DAILY (Reported)CarvediloL (Coreg) 25 MG PO BID MEALSclopidogreL (Plavix) 75 MG PO DAILY (Reported)Doxazosin (Cardura) 2 MG PO BIDEscitalopram (Lexapro) 10 MG PO BEDTIME (Reported)Ezetimibe (Zetia) 10 MG PO DAILY (Reported)hydrALAZINE (Apresoline) 75 MG PO Q6HR (Reported)Isosorbide Mononitrate ER (Imdur) 60 MG PO DAILY (Reported)Levothyroxine (Synthroid) 75 MCG PO DAILY (Reported)Med List Information (*Med List Information) 1 EA MISC .CANCEL AT DISCHARGE (Reported)PANTOPRAZOLE (PROTONIX) 20 MG PO DAILY (Reported)Topiramate (Topamax) 50 MG PO BID (Reported)Scheduled PRN MedicationsNitroglycerin SL (Nitrostat) 0.4 MG SL Q5M PRN PRN CHEST PAIN (Reported)oxyCODONE/Acetaminophen (Percocet 10-325) 1 TAB PO Q6H PRN PRN PAIN SCALE 7-10(Reported)Discontinued MedicationsAspirin Buffered (Ascriptin) 325 MG PO DAILY Discontinued reason: Changed/DC prior to admitB Comp No3/Folic/C/Biotin/Zinc (NEPHPLEX RX) 1 TAB PO DAILY Discontinued reason: Changed/DC prior to admitButalb/Acetaminophen/Caffeine (Fioricet) 1 TAB PO Q6H PRN PRN PAIN SCALE 4-6 Discontinued reason: Changed/DC prior to admitCholecalciferol (Vitamin D3) (Vitamin D3) 50,000 UNITS PO Q14D (Reported) Discontinued reason: Changed/DC prior to admitFolic Acid 1 MG PO BID Discontinued reason: Changed/DC prior to admitFurosemide (Lasix) 20 MG PO DAILY Discontinued reason: Changed/DC prior to admitLevoFLOXacin (Levaquin) 500 MG PO Q48HR Discontinued reason: DC by provider orderLosartan (Cozaar) 50 MG PO DAILY Discontinued reason: Changed during this visitOndansetron (Zofran) 4 MG PO Q8H PRN PRN NAUSEA AND VOMITING (Reported) Discontinued reason: Changed/DC prior to admitTopiramate (Topamax) 25 MG PO BEDTIME Discontinued reason: Changed/DC prior to admitMed Rec actions: Med Rec actions: pt reviewed by pharmacist, home med list reviewed, updatedallergies, updated ADR information, issues clarifiedComments:Please call x [facility] extension with questions regarding the medicationreconciliation for this patient. Thank you! at 1322 at 1742RPT#:[id number] OF REPORT [facility] ([facility])EMERGENCY PROVIDER REPORTREPORT#:[id number] REPORT STATUS: SignedDATE:04/17/25 TIME: 1048PATIENT: NASH LLANOS UNIT #: [id number]#: [id number] ROOM/BED: [facility]-ADOB: [birth year] AGE: 54 SEX: F PCP PHYS: Chad Stewart MDSERVICE AUTHOR: Manohar Hodge SRV REP SRV TM: 1036* ALL edits or amendments must be made on the electronic/computer document *MANOHAR HODGE 04/17/25 1048:HPI-General IllnessFree Text HPI NotesFree Text HPI Qbeav07-ycsr-lpt female with a history of ESRD on dialysis, HTN, CHF, and DM presentsfor evaluation of multiple complaints. Patient is accompanied by hersignificant other who states that overall, patient has been growing more weakoverall and has intermittent confusion which is ongoing for several years. Hestates that overall, her symptoms have been worsening. He states he is unableto care for her at home anymore. He believes that her weakness has gotten evenworse over the last week or so. She was just at dialysis and came from dialysisdirectly here. Patient's significant other states that he already contacted herprimary care provider because of her worsening symptoms but does not have anappointment for several weeks. They deny any new symptoms including chest pain,shortness of breath, abdominal pain, nausea, vomiting, headache, dizziness.GeneralConfirmed Patient YesInitial Greet Date/Time 04/17/25 1029PresentationChief Complaint WeaknessHx Obtained From Patient, SpouseOnset Occurred ChronicProgression since Onset Gradually worseningReview of SystemsROS StatementsAll systems rev neg except as marked.Free Text ROS NotesFree Text ROS NotesROS:Constitutional: no fever or chillsCV: no chest pain or palpitationsResp: No Shortness of breath no coughGI: no nausea or vomiting or abd painMusculoskeletal: generalized weakness, no leg swelling or neck painNeurological: no headache or dizzinessPast Medical History - AdultStated Complaint POST DIALYSIS THIS AM INCREASED WEAKNESS TODAYAllergiesCoded Allergies:insulin glargine (From BASAGLAR KWIKPEN U-100 INSULIN) (Intermediate, FACE NUMB04/17/25)lisinopril (Intermediate, COUGH 04/17/25)Home MedicationsActive ScriptsCarvediloL (Coreg) 25 MG PO BID MEALS 30 Days #60 TAB Prov: 06/07/23amLODIPine (Norvasc) 10 MG PO DAILY 30 Days #30 TAB Prov: 06/07/23Doxazosin (Cardura) 2 MG PO BID Doxazosin (Cardura) 2 MG PO BID #60 TAB Ref 1 Prov: 12/08/23Discontinued ScriptsLevoFLOXacin (Levaquin) 500 MG PO Q48HR LevoFLOXacin (Levaquin) 500 MG PO Q48HR #3 TAB Prov: 08/29/24 DC: 04/17/25 1255 DC by provider orderLosartan (Cozaar) 50 MG PO DAILY Losartan (Cozaar) 50 MG PO DAILY #30 TAB Prov: 08/29/24 DC: 04/17/25 1316 Changed during this visitAspirin Buffered (Ascriptin) 325 MG PO DAILY Aspirin Buffered (Ascriptin) 325 MG PO DAILY #30 TAB Prov: 08/29/24 DC: 04/17/25 1312 Changed/DC prior to admitButalb/Acetaminophen/Caffeine (Fioricet) 1 TAB PO Q6H PRN PRN PAIN SCALE 4- 6 Butalb/Acetaminophen/Caffeine (Fioricet) 1 TAB PO Q6H PRN PRN PAIN SCALE 4-6 #60 TAB Prov: 08/29/24 DC: 04/17/25 1316 Changed/DC prior to admitTopiramate (Topamax) 25 MG PO BEDTIME Topiramate (Topamax) 25 MG PO BEDTIME #30 TAB Prov: 08/29/24 DC: 04/17/25 1314 Changed/DC prior to admitFurosemide (Lasix) 20 MG PO DAILY Furosemide (Lasix) 20 MG PO DAILY #30 TAB Prov: 08/29/24 DC: 04/17/25 1313 Changed/DC prior to admitFolic Acid 1 MG PO BID Folic Acid 1 MG PO BID #30 TAB Prov: 08/29/24 DC: 04/17/25 1316 Changed/DC prior to admitB Comp No3/Folic/C/Biotin/Zinc (NEPHPLEX RX) 1 TAB PO DAILY B Comp No3/Folic/C/Biotin/Zinc (NEPHPLEX RX) 1 TAB PO DAILY #30 TAB Prov: 08/29/24 DC: 04/17/25 1316 Changed/DC prior to admitReported MedicationsclopidogreL (Plavix) 75 MG PO DAILYIsosorbide Mononitrate ER (Imdur) 60 MG PO DAILYLevothyroxine (Synthroid) 75 MCG PO DAILYoxyCODONE/Acetaminophen (Percocet 10-325) 1 TAB PO Q6H PRN PRN PAIN SCALE 7-10hydrALAZINE (Apresoline) 75 MG PO W0NYYpm List Information (*Med List Information) 1 EA MISC .CANCEL AT DISCHARGETopiramate (Topamax) 50 MG PO BIDNitroglycerin SL (Nitrostat) 0.4 MG SL Q5M PRN PRN CHEST PAINAtorvastatin (Lipitor) 80 MG PO DAILYEzetimibe (Zetia) 10 MG PO DAILYEscitalopram (Lexapro) 10 MG PO BEDTIMEPANTOPRAZOLE (PROTONIX) 20 MG PO DAILYacetaZOLAMIDE (Diamox) 500 MG PO BIDDiscontinued Reported MedicationsCholecalciferol (Vitamin D3) (Vitamin D3) 50,000 UNITS PO [id number] (Zofran) 4 MG PO Q8H PRN PRN NAUSEA AND VOMITINGReview of Nursing Notes Rev avail, and agreePast Medical History:Reports: Anemia, Asthma, Congestive heart failure, COPD, Coronary artery disease, Diabetes mellitus, Hypertension.Additional Medical HistoryHypertension Pulmonary hypertension Diabetes mellitus type 2, ESRD, renal cell carcinoma grade 1, Dyslipidemia, Coronary artery disease s/p CAGB and stenting, COPD, Hypothyroidism, GERD, Chronic pain syndromePast Surgical History:Reports: Appendectomy, CABG, Cholecystectomy, , Hysterectomy,Tonsillectomy, Vascular procedure (cardiac stents), Bilateral tubal ligation.Additional Surgical HistoryPD catheter placementFamily History:Reports: Cancer, Diabetes, Hypertension.Additional Family HistoryNo history of chronic kidney disease or end-stage renal diseaseAlcohol Use Denies EtOH useDrug Use Denies recreational drugsOther Social History Good social supportPhysical ExamVital SignsVital SignsFirst Documented: Result Date Time Pulse Ox 95 04/17 1044 B/P 141/73 04/17 1044 O2 Delivery Nasal cannula 04/17 1044 O2 Flow Rate 2 04/17 1044 Temp 36.9 04/17 1044 Pulse 53 04/17 1044 Resp 18 04/17 1044Last Documented: Result Date Time Pulse Ox 95 04/17 1055 Pulse 53 04/17 1055 B/P 141/73 04/17 1044 O2 Delivery Nasal cannula 04/17 1044 O2 Flow Rate 2 04/17 1044 Temp 36.9 04/17 1044 Resp 18 04/17 1044Review of Vital Signs ReviewedFree Text PE NotesFree Text PE NotesFree Text PE NotesGeneral/Const General/Const Awake, No acute distress, chronic ill appearingMS Head Head Atraumatic, NormocephalicResp/Chest Respiratory/Chest wheezing bilaterally, Atraumatic, No respiratory distressCardiovascular Cardiovascular Heart rate NLAbdomen/GI Abdomen/GI Atraumatic, nontender, no guardingNeurologic Neurologic Oriented X3, drowsy, No focal deficitsInterpretation DiagnosticsLab Results InterpretationResultsLaboratory Tests04/17/25 1126:[Embedded Image Not Available]04/17/25 1101:[Embedded Image Not Available]Laboratory Tests: 04/17 04/17 1126 1126 Chemistry Ammonia (11 - 32 umol/L) 33 H B-Natriuretic Peptide (0 - 100.0 pg/ml) 4134.5 H Hematology WBC (4.0 - 10.5 10 3/uL) 6.4 RBC (3.93 - 5.22 10 6/uL) 2.81 L Hgb (11.2 - 15.7 g/dL) 8.3 L Hct (34.1 - 44.9 %) 29.0 L MCV (79.4 - 94.8 fL) 103.2 H MCH (25.6 - 32.2 pg) 29.5 MCHC (32.2 - 35.5 g/dL) 28.6 L RDW (11.7 - 14.4 %) 15.1 H Plt Count (150 - 400 10 3/uL) 30 CL MPV (9.4 - 12.3 fL) 13.6 H Immature Gran % (0.0 - 0.4 %) 0.9 H Neutrophils % (34.0 - 71.1 %) 76.1 H Lymphocytes % (19.3 - 51.7 %) 10.7 L Monocytes % (4.7 - 12.5 %) 9.9 Eosinophils % (0.7 - 5.8 %) 1.6 Basophils % (0.1 - 1.2 %) 0.8 Nucleated RBC % (0.0 - 0.2 %) 0.5 H Immature Gran # (0.00 - 0.03 10 3/uL) 0.06 H Neutrophils # (1.56 - 6.13 10 3/uL) 4.84 Lymphocytes # (1.18 - 3.74 10 3/uL) 0.68 L Monocytes # (0.24 - 0.63 10 3/uL) 0.63 Eosinophils # (0.04 - 0.36 10 3/uL) 0.10 Basophils # (0.01 - 0.08 10 3/uL) 0.05 Nucleated RBCs # (0.00 - 0.18 10 3/uL) 0.03 Platelet Estimate (ADEQUATE) DECREASED Platelet Morphology (NORMAL) OCC GIANT PLATELETS Hem Pathologist Commnt 04/17 1101 Chemistry Sodium (136 - 145 mmol/L) 140 Potassium (3.5 - 5.1 mmol/L) 2.5 CL Chloride (98 - 107 mmol/L) 98 Carbon Dioxide (20 - 31 mmol/L) 25 Anion Gap (7 - 16 mmol/L) 17 H BUN (9 - 23 mg/dL) 40 H Creatinine (0.55 - 1.02 mg/dL) 4.4 H Est GFR (CKD-EPI 2020) (>90.0) 11.2 L BUN/Creatinine Ratio (4 - 33) 9 Glucose (57 - 106 mg/dL) 124 H Calcium (8.7 - 10.4 mg/dL) 7.5 L Total Bilirubin (0.3 - 1.2 mg/dL) 0.2 L AST (0 - 34 U/L) 21 ALT (10 - 49 U/L) < 7 L Alkaline Phosphatase (46 - 116 U/L) 124 H Total Protein (5.7 - 8.2 g/dL) 6.4 Albumin (3.2 - 4.8 g/dL) 3.8 Globulin (1.4 - 4.8 g/dL) 2.6 Albumin/Globulin Ratio (0.7 - 3.6) 1.5Recent Impressions:COMPUTERIZED TOMOGRAPHY - CT BRAIN W/O CONTRAST 04/17 1135 Report Impression - Status: SIGNED Entered: 04/17/2025 1221IMPRESSION:No acute intracranial pathology.Electronically signed by: Saman Lopez MD 512:19 PM EDT RPWorkstation: [id number] By: GAEL MOSQUEDAADIOLOGY - CHEST PORTABLE 04/17 1150 Report Impression - Status: SIGNED Entered: 04/17/2025 1224IMPRESSION:Bilateral airspace disease, more pronounced on the right thanthe left. The findings may represent pulmonary edema. Pneumoniacannot be excluded.Electronically signed by: Saman Lopez MD 512:21 PM EDT RPWorkstation: [id number] By: YVETTE LOPEZ MD Lab Imaging StatementLaboratory radiographic studies reviewed and considered in the medicaldecision-making.Re-Evaluation MDMFree Text MDM NotesFree Text MDM NotesHistory obtained from: PatientComplexity and number of problems: 54-year-old female with a history of ESRD ondialysis, HTN, CHF, and DM presents for evaluation of multiple complaints.Patient is accompanied by her significant other who states that overall, patienthas been growing more weak overall and has intermittent confusion which isongoing for several years. He states that overall, her symptoms have beenworsening. He states he is unable to care for her at home anymore. He believesthat her weakness has gotten even worse over the last week or so. She was justat dialysis and came from dialysis directly here. Patient's significant otherstates that he already contacted her primary care provider because of herworsening symptoms but does not have an appointment for several weeks. Theydeny any new symptoms including chest pain, shortness of breath, abdominal pain,nausea, vomiting, headache, dizziness.Differential diagnosis includes but not limited to: FTT, electrolyte imbalance,dehydrationExternal documents reviewed:Decision rules scores evaluated (PERC, NIH, Heart Score):Plan: labs, CT brain, cxrDiscussion with:ED course (summary of events, pain medications given, pertinent results, acute/severity of illness):On initial presentation, patient is in no acute distress but does appear weakand chronically ill. She is drowsy but oriented. She does have some confusionintermittently during exam. She has wheezing bilaterally. Abdomen isnontender.Vitals WNL, no sirs criteriaPatient's spouse states that he is unable to care for her at home and sherequires admission to a rehab or nursing facility.WBC 6.4, hemoglobin 8.3Platelets are 30 but patient does have a history of thrombocytopenia, no activebleedingPotassium 2.5, ordered 40 mEq by mouthBNP 4134 with evidence of pulmonary edema versus pneumonia on chest x-rayCreatinine 4.4, BUN 40 GFR 11CT interpretation: CT brain no acute findingsReviewed all results with patient, discussed need for admission and patientagreesDiscussed management of the patient with hospitalist and they agree and willadmit.Final disposition and condition: Stable at time of admissionShared decision making: After discussion with patient in a shared medicaldecision making fashion, patient agrees to admission.Code Status: Full codeSocial Detriments:Dictation - This chart was prepared in part using voice recognition software andthus may contain unintended word substitutions or dictation errors despitereasonable efforts to screen for and correct such errors. If there are anyquestions regarding intended documentation please contact medical records.ED CourseMedication(s) OrderedMedication(s) Ordered:Electrolytic, Caloric, And Aglina Sig/Inocencia Start time Last Medication Dose Route Stop Time Status Admin Potassium Chloride 40 MEQ X1ED STA 04/17 1137 DC 04/17 PO 04/17 1138 1228Patient Discharge DepartureVital Signs/ConditionVital SignsFirst Documented: Result Date Time Pulse Ox 95 04/17 1044 B/P 141/73 04/17 1044 O2 Delivery Nasal cannula 04/17 1044 O2 Flow Rate 2 04/17 1044 Temp 36.9 04/17 1044 Pulse 53 04/17 1044 Resp 18 04/17 1044Last Documented: Result Date Time Pulse Ox 95 04/17 1055 Pulse 53 30 1055 B/P 141/73 04/17 1044 O2 Delivery Nasal cannula 04/17 1044 O2 Flow Rate 2 04/17 1044 Temp 36.9 04/17 1044 Resp 18 04/17 1044All vital signs available at the time of this entry have been reviewed.Clinical ImpressionClinical ImpressionPrimary Impression: Pulmonary edemaSecondary Impressions: ESRD needing dialysis, Generalized weakness, Hypokalemia,ThrombocytopeniaDisposition DecisionHospitalize Hosp Physician Name Ermelinda Kaufman MD Hosp Physician Hospitalist Request Time 1304 Request Date 04/17/25 )( Accepts Hospitalization Yes )( Reason for HospitalizationHypokalemia, pulmonary edema, generalized weakness )( Accepted Time 1316 )( Accepted Date 04/17/[address] Barrigaischarge/Care PlanCounseled Regarding Diagnosis, Lab results, Imaging studies, Need for admission Admit NoteI have spoken with the patient and/or caregivers. I have explained the patient'scondition, diagnoses and treatment plan based on the information available to meat this time. I have answered the patient's and/or caregiver's questions andaddressed any concerns. The patient and/or caregivers have as good anunderstanding of the patient's diagnosis, condition and treatment plan as can beexpected at this point. The patient has been stabilized within the capability ofthe emergency department. The patient will be transported for further care andmanagement or will be moved to an observation or inpatient service. I havecommunicated with the staff or medical practitioner taking over this patient'scare.DAVID MARIN 04/20/25 2337:Patient Discharge DepartureDischarge/Care PlanReferralsProvider Referral: Chad Stewart MD Address: [address] [place], [place] [address]Supervising Physician Note MidLv Saw Pt Alone I was available for consultation as needed during the patient's visit in theemergency department. at 1413 at 0137RPT#:[id number] OF REPORT Melanie Grace MD-17-Apr-2025 [facility] [address] [place] [address] Patient Name: NASH LLANOS : 68 Admit/Ser Date: 04/17/25 AGE: 54Attend Physician: Lesly Navarro MD [facility]: HISTORY and PHYSICALDATE OF EVALUATION: 04/17/2025DATE OF ADMISSION: 04/17/2025HIEF COMPLAINT: Progressive weakness over the last few weeks.HISTORY OF PRESENT ILLNESS: Ms. Llanos is a 54-year-old patient with end-stagerenal disease, on hemodialysis; hypertension, CHF, diabetes. The patient isaccompanied by her significant other who states that overall the patient hasbeen going more weaker, has been having on and off intermittent confusionprogressing over the last year. The patient believes that the weakness wasgetting worse over the last week, came to the ER and admitted for placement asthe patient's primary caregiver cannot care for the patient anymore at home.ALLERGIES: Include insulin, lisinopril.MEDICATIONS: On admission; Coreg, Norvasc Cardura, Plavix, isosorbide,levothyroxine, Percocet, hydralazine, Topamax, Lipitor, Zetia, Lexapro,pantoprazole, Diamox.PAST MEDICAL HISTORY:1. Asthma.2. CHF.3. COPD.4. Coronary artery disease.5. Diabetes.6. Hypertension.7. Anemia.8. Pulmonary hypertension.9. Renal cell carcinoma grade 1.10. Hyperlipidemia.11. Atherosclerotic heart disease.12. Hypothyroidism.13. Gastroesophageal reflux disease.14. Chronic pain syndrome.PAST SURGICAL HISTORY: History of coronary artery bypass graft, history ofstenting, history of appendectomy, cholecystectomy, , hysterectomy,tonsillectomy, bilateral tubal ligation, history of peritoneal dialysiscatheter placement in the past.FAMILY HISTORY: Noncontributory.SOCIAL HISTORY: Lives with significant other. Does not use drugs or alcohol.Patient Name: NASH LLANOS a good social support.PHYSICAL EXAMINATION:VITAL SIGNS: Temperature 98.4, pulse rate 53, respiratory rate of 18, andblood pressure 141/73.HEENT: Pupils reacting to the light, chronic ill- appearing, cachectic.LUNGS: Clear to auscultation.HEART: S1, S2. Regular rate and rhythm.ABDOMEN: Soft. Bowel sounds present.NEUROLOGIC: Awake, alert, oriented x3.LABORATORY RESULTS: WBC 6.4, hemoglobin 8.3, hematocrit 29, platelets 30. Thepatient does have sodium 140, potassium 2.5, BUN 40, creatinine 4.4. LFTs arenormal. Ammonia 33. BN peptide 4132. The patient did have a CT scan of thebrain done without contrast showing no acute findings. The patient did have achest x- ray done that was showing bilateral airspace disease on theright greater than the left, consistent with pulmonary edema.ASSESSMENT: A 54-year-old patient with;1. End-stage renal disease, on hemodialysis.2. Thrombocytopenia.3. Severe protein-calorie malnutrition.4. Anemia of chronic disease.5. Hypokalemia.6. End- stage renal disease, on hemodialysis.PLAN: The patient will be admitted. We will check stool cards. Will beconsulting Hematology consultation secondary to the thrombocytopenia. for Nephrology for continuing with dialysis. Replete the patient'spotassium. Continue with Coreg, Cardura, Norvasc for hypertension, Synthroidfor hypothyroidism. Zetia for hyperlipidemia. We will continue with Percocetfor pain control. Consult Dr. Garzon for thrombocytopenia. Restart homemedications. The patient's blood pressure running in the low 100s. We will beholding off on the blood pressure medications secondary to the low bloodpressures. We will be holding off on the Coreg and lisinopril. Continue withCelexa for depression, Topamax for headaches. Further discharge planning asper the patient's progress. She will be getting PT/OT evaluation and dischargeplanning. Consult Dr. Garzon for Hematology for thrombocytopenia. ABI Marcial/TiffanyDD: 04/17/2025 20:40DT: 04/17/2025 21:13Job #: [id number] by Lesly Navarro MD On 04/30/2025 01:03:11 PMR#[id number] Name: NASH LLANOS Signed by Lesly Navarro MD on 04/30/25 at 0103Patient Name: NASH LLANOS Melanie Grace MD-29-Aug-2024 [facility] [address] [place] [address] Patient Name: NASH LLANOS : 68 Admit/Ser Date: 08/28/24 AGE: 54Attend Physician: Lesly Navarro MD [facility]: DISCHARGE SUMMARYDATE OF ADMISSION: 08/28/2024ATE OF DISCHARGE: 08/29/2024ISCHARGE DISPOSITION: Home under self-care.DISCHARGE DIAGNOSES: Include:1. End-stage renal disease, on hemodialysis.2. Hypertensive heart disease with heart failure.3. Thrombocytopenia.4. Chronic obstructive pulmonary disease.5. Nicotine dependence.6. Pulmonary hypertension.DISCHARGE MEDICATIONS: Include mg b.i.d., aspirin 325 every day,Cardura 2 mg b.i.d., Coreg 25 b.i.d., Cozaar 50 every day, folic acid 1 mgevery day, Lasix 20 every day, Imdur 60 every day, potassium 20 mEq every day,Lasix 500 mg every other day, Lipitor 80 mg at bedtime, Nephrocaps t.i.d.,Norvasc 10 every day, Plavix 75 every day, Synthroid 75 mcg every day, Letptku22 at bedtime, Zetia 10 every day, DuoNeb q.8 hours, Fioricet q.6 hours p.r.n.and Percocet 10/325 q.6 p.r.n.HOSPITAL COURSE: Ms. Viet Manuel is a 54-year-old patient, initially admittedto the hospital 08/27 with low hemoglobin, platelets, and low potassium. Thepatient was admitted, consulted by Nephrology. While in the hospital, thepatient had dialysis continued. The patient had some pleural effusion,consulted by Dr. Quiros, who thought fluid overload and once the diuretics werestarted and the patient started feeling better, the patient was discharged hometo follow up with primary care physician one week post discharge for a followupappointment.DISCHARGE LABORATORY DATA: WBC 3.2, hemoglobin 8.2, and platelets 62. Dyzynj048, potassium 3.1, BUN 26, and creatinine 3.9.IMAGING DATA: The patient had a CT scan of abdomen and pelvis done during thishospitalization showing cardiomegaly with right-sided pleural effusion, had anunchanged lesion on the left lower kidney. CT scan of the chest reviewed. CTscan of the brain did not show any acute findings.PLAN: At this point, advised the patient to follow up with primary carephysician one week post discharge for a followup appointment. Refer [facility] chart for further admission details.Patient Name: NASH LLANOS Urggcz Kolli, MDAK/AquityDD: 08/29/2024 23:22DT: 08/30/2024 03:33Job #: [id number] by Lesly Navarro MD On 09/21/2024 01:44:40 AMR#[id number] at 0144Patient Name: NASH LLANOS Melanie Grace MD-29-Aug-2024 [facility] Parvez Aviles-29-Aug-2024 [facility] ([facility])Pharmacy Prog.Note-Med RecREPORT#:[id number] REPORT STATUS: SignedDATE:08/29/24 TIME: 1530PATIENT: NAHS LLANOS UNIT #: [id number]#: [id number] [facility]: [birth year]AGE: 54 SEX: F ATTEND: Lesly Navarro AUTHOR: Blank Hannon EREP SRV REP SRV TM: 1530* ALL edits or amendments must be made on the electronic/computer document *Pharmacy Med History ReviewPrimary Care ProviderPCP: PCP: Chad Stewartharkelvin Med History ReviewSource of information: interviewed pt/caregiver, reviewed med claims dataMed Rec report: yesAdmission Med Rec:Scheduled MedicationsacetaZOLAMIDE (Diamox) 500 MG PO BID (Reported)amLODIPine (Norvasc) 10 MG PO DAILYAspirin (BABY ASPIRIN) 81 MG PO DAILY (Reported)Atorvastatin (Lipitor) 80 MG PO DAILY (Reported)CarvediloL (Coreg) 25 MG PO BID MEALSCholecalciferol (Vitamin D3) (Vitamin D3) 50,000 UNITS PO Q14D (Reported)clopidogreL (Plavix) 75 MG PO DAILY (Reported)Doxazosin (Cardura) 2 MG PO BIDEscitalopram (Lexapro) 10 MG PO BEDTIME (Reported)Ezetimibe (Zetia) 10 MG PO DAILY (Reported)hydrALAZINE (Apresoline) 75 MG PO Q6HR (Reported)Isosorbide Mononitrate ER (Imdur) 60 MG PO DAILY (Reported)Levothyroxine (Synthroid) 75 MCG PO DAILY (Reported)Med List Information (*Med List Information) 1 EA MISC .CANCEL AT DISCHARGE (Reported)PANTOPRAZOLE (PROTONIX) 20 MG PO DAILY (Reported)Scheduled PRN MedicationsOndansetron (Zofran) 4 MG PO Q8H PRN PRN NAUSEA AND VOMITING (Reported)oxyCODONE/Acetaminophen (Percocet 10-325) 1 TAB PO Q6H PRN PRN PAIN SCALE 7-10(Reported)Discontinued MedicationsASPIRIN 325 MG PO DAILY (Reported) Discontinued reason: DC by provider orderASPIRIN/CA CARB/MG/AL (ASCRIPTIN) 325 MG PO DAILY Discontinued reason: Changed/DC prior to admitB Complex/Vit C/Folic Acid (Renal Caps Softgel) 1 TAB PO DAILY Discontinued reason: Changed/DC prior to admitBenzonatate (Tessalon Perles) 100 MG PO TID PRN COUGH (Reported) Discontinued reason: DC by provider orderFolic Acid 1 MG PO BID Discontinued reason: Patient stopped takingFurosemide (Lasix) 20 MG PO DAILY (Reported) Discontinued reason: DC by provider orderIpratropium/AlbuteroL (Duoneb) 3 ML INH RTQ4H PRN PRN DYSPNEA Discontinued reason: Patient stopped takingLevoFLOXacin (Levaquin) 250 MG PO DAILY Discontinued reason: DC by provider orderLosartan (Cozaar) 25 MG PO DAILY (Reported) Discontinued reason: DC by provider orderTopiramate (Topamax) 25 MG PO BEDTIME (Reported) Discontinued reason: DC by provider orderAllergies:Coded Allergies:insulin glargine (From BASAGLAR KWIKPEN U-100 INSULIN) (FACE NUMB 12/09/23)lisinopril (Intermediate, COUGH 12/09/23)Med Rec actions: Med Rec actions: pt reviewed by pharmacist, home med list reviewed, updatedallergies, updated ADR information, issues clarifiedComments:Please call x [facility] extension with questions regarding the medicationreconciliation for this patient. Thank you! at 1531RPT#:[id number] OF REPORT Jalen Barcenas MD-2023 [facility] ([facility])Nephrology Progress NoteREPORT#:[id number] REPORT STATUS: SignedDATE:08/29/24 TIME: 0802PATIENT: NASH LLANOS UNIT #: [id number]#: [id number] [facility] [birth year]AGE: 54 SEX: F ATTEND: Lesly Navarro MDADM AUTHOR: Kristine Wolff MDREP SRV REP SRV TM: 0802* ALL edits or amendments must be made on the electronic/computer document *SubjectiveHPI:Patient is a 54-year-old female past medical history of heart failure, diabetesmellitus and ESRD on hemodialysis who presented after PCP referred her to the EDfor pancytopenia. She endorses lethargy. She has a history of requiringtransfusions. Patient goes for dialysis on Tuesday and Tuesday.Nephrology was consulted for management of ESRD on hemodialysis. Her lastdialysis was yesterday.ObjectivePhysical ExamGeneral appearance: frail, alert, awake, orientedCardiovascular: no rubRespiratory: no distressAbdomen: non- tender, soft, no CVA tendernessGenitourinary: no urinary catheterMusculoskeletal: normal inspectionNeuro/DRAFTER: alert, oriented X 3, CN II-XII intact, normal speechResultsFindings/Data:Laboratory Tests 08/29 08/29 08/28 08/28 08/28 0616 0400 1952 1602 1122 Chemistry Sodium (136 - 145 mmol/L) 141 Potassium (3.5 - 5.1 mmol/L) 5.5 H Chloride (98 - 107 mmol/L) 108 H Carbon Dioxide (21 - 32 mmol/L) 26 Anion Gap (7 - 16 mmol/L) 7 BUN (7 - 18 mg/dL) 36 H Creatinine (0.6 - 1.0 mg/dL) 4.5 H Est GFR (CKD-EPI 2020) (>90.0) 10.9 L BUN/Creatinine Ratio (4 - 33) 8 Glucose (74 - 106 mg/dL) 89 POC Glucose (70 - 110 mg/dl) 86 83 107 130 H Calcium (8.5 - 10.1 mg/dL) 8.5Laboratory Tests 08/29 0400 Hematology WBC (4.0 - 10.5 10 3/uL) 3.5 L RBC (3.93 - 5.22 10 6/uL) 2.65 L Hgb (11.2 - 15.7 g/dL) 8.0 L Hct (34.1 - 44.9 %) 27.6 L MCV (79.4 - 94.8 fL) 104.2 H MCH (25.6 - 32.2 pg) 30.2 MCHC (32.2 - 35.5 g/dL) 29.0 L RDW (11.7 - 14.4 %) 15.8 H Plt Count (150 - 400 10 3/uL) 55 LFree Text Obj NotesFree Text Obj Notes:Gen: awake, alert, well appearing, no acute distress.Eyes: EOMI, PERRL, conjunctiva normal.Cardio: normal rate and rhythm. No murmurs/gallops/rubs.Pulm: breath sounds symmetric bilat, no crackles/wheeze.GI: Soft, non-tender, non-distended, no pulsatile mass, no guarding, no rebound.Musculoskeletal: inspection nl, no swelling, no deformity.Skin: warm, dry, no cyanosis, no diaphoresis, no rash.Neuro: A O x 3, normal motor/sensation to all extremities, CN II-XII grosslyintact.Psych: nl mood, nl affect, nl thought content.Diagnosis, Assessment PlanFree Text A P:End-stage renal diseaseHemodialysis today for 3 hours fluid loss 1 LPatient has no edema clinically appears to be euvolemic[Embedded Image Not Available]Ongoing dialysis Tuesday at 0803RPT#:[id number] OF REPORT Chula Johnson MD- [address] [place] [address] [place] [address] Patient Name: NASH LLANOS : 68 Admit/Ser Date: 08/28/24 AGE: 54Attend Physician: Lesly Navarro MD [address]: CONSULTATIONDATE OF CONSULTATION: 4ADMITTING PHYSICIAN: Lesly Navarro, [facility]ONSULTING PHYSICIAN: Brendon Quiros MDThank you very much, Dr. Navarro, for allowing me to participate in the care ofyour patient.REASON FOR CONSULTATION: Pulmonary evaluation.HISTORY OF PRESENT ILLNESS: A 54-year-old female, [facility] presenting symptoms was because of low hemoglobin actuallypancytopenia. The patient had leukopenia. The patient had thrombocytopeniaand she was quite anemic. The patient was also found to have a severe fluidelectrolyte imbalance with a potassium level originally that was hyperkalemiaand she was admitted. In the process, the patient [facility] being abnormal, I was consulted.PAST MEDICAL HISTORY: Significant for a history of nicotine addiction. She isan ongoing smoker. She has a history of diabetes, diabetic neuropathy,diabetic nephropathy. She has a history of CKD, end-stage. She is ondialysis. The patient carries the diagnosis of renal cell cancer followed bytreatment. She has a history of asthma, congestive heart failure, COPD,coronary artery disease, diabetes, hypertension, and post CABG. The patienthas a history of diabetes with end-organ damage, severe neuropathy. She isunable to walk too much.ALLERGIES: THE PATIENT IS ALLERGIC TO LISINOPRIL, INSULIN.CURRENT MEDICATIONS: In the hospital includes her Levaquin, Procrit, losartan,folic acid, aspirin, Lasix, amlodipine, atorvastatin, isosorbide, Zetia,levothyroxine, butalbital, , hydralazine, Diamox, Topamax.REVIEW OF SYSTEMS:Negative for any headache. She feels weak. She denies any shortness ofbreath. She is an ongoing smoker. She feels weak and tired. There is no GIbleed. The patient does not have any productive sputum. There is no pleuriticchest pain. There is no fever. She denies any GI bleed. The patient hassevere neuropathy. She has significant wasting of muscles.PHYSICAL EXAMINATION:GENERAL: Reveals 162.56 cm height patient, 54.545 kg weight. Appearsmalnourished with severe wasting of the muscles. She was in the dialysis atPatient Name: NASH LLANOS time. Saturating 91% on room air in no distress, wants to go home.VITAL SIGNS: Temperature maximum 37.2, the pulse is 60, breathing comfortably,blood pressure is 188 systolically.HEENT: Skin and mucous membrane pale. There is minimal pleural effusion onthe right side.HEART: Regular.ABDOMEN: Soft. Bowel sounds are present. There is no edema.SKIN: Actually very dry. There is an atrophy of the muscles.DRAFTER: Mental status solis, she is fine and apart from generalized weakness,there are no focalizing neurological deficits.LABORATORY DATA: Reviewed. White cell count 3.5, H and H 8 and 27.6, theplatelet count is 55. BUN and creatinine 36 and 4.5. Blood sugar 89. Herhepatitis B antigen was 1.4, but COVID-19 and adenovirus were negative. CTchest was personally reviewed. There is pleural effusion mainly posteriorlylayered. The patient has cardiomegaly. She has COPD changes. I do not seeany pneumonia. There is not enough fluid for thoracentesis.ASSESSMENT: I do not believe the patient has pneumonia. The patient does haveCOPD acute exacerbation. The pleural effusion is on the right side. Itappears more fluid overload rather than pneumonia. There is no need forthoracentesis. The patient has pulmonary hypertension, probably a combinationof both heart and lungs. The patient has unfortunately ongoing nicotineaddiction. She has diabetes and diabetic end-organ damage, end-stage renaldisease. She has a strong family history of cancer especially her mother withbreast cancer and thyroid cancer, pulmonary standpoint;1. Smoking cessation counseling.2. No need for treating for pneumonia. The patient has chronic obstructivepulmonary disease decompensated, likely from fluid overload.3. Pleural effusion. She has hypertension, hypertensive heart disease,congestive heart failure, post coronary artery bypass grafting. She hasdiabetes, diabetic neuropathy, nephropathy, end-stage renal disease. She haschronic obstructive pulmonary disease.PLAN: Plan at this time is to discharge okay. No need for thoracentesis. Wewill recommend doing a PFT outpatient. The patient may need a formal sleepstudy as an outpatient. She is tolerating dialysis well. [facility] about couple of weeks post discharge. Further workupcould be done outpatient. CAMERON Davis/AquityDD: 08/29/2024 13:28DT: 08/29/2024 19:40Job #: [id number] by Brendon Quiros MD On 08/30/2024 11:59:23 AMR#[id number] Name: LAVELLE LLANOSITA DIONY Signed by Brendon Quiros MD on 08/30/24 at 1159Patient Name: NASH LLANOS Yolanda Frey MD--Aug [facility])Internal Medicine Prog. NoteREPORT#:[id number] REPORT STATUS: SignedDATE:08/28/24 TIME: 2145PATIENT: NASH LLANOS UNIT #: [id number]#: [id number] ROOM/BED: [facility]-ADOB: [birth year]AGE: 54 SEX: F ATTEND: Lesly Navarro MDADM AUTHOR: Shante Guerrero MDREP SRV REP SRV TM: 2145* ALL edits or amendments must be made on the electronic/computer document *SubjectiveHPI:Shortness of breath is betterGeneralized weaknessObjectiveGeneralVS/I O:Vital SignsDate Temp Pulse Resp B/P B/P Mean Pulse Ox GmT071/09-08/28 36.4-37.0 55-64 15-18 148-189/62-84 90.3-118.9 91-96Last Documented: Result Date Time B/P 167/69 08/28 2042 Pulse 57 08/28 2042 Pulse Ox 91 08/28 1953 B/P Mean 102.0 08/28 1953 O2 Delivery Room air 08/28 1953 Temp 36.7 08/28 1953 Resp 15 [id number] hour I O ending at 0700: 08/28 0700 08/27 190 Intake Total Output Total Balance Patient 54.545 kg Weight Weight Stated/Reported Measurement MethodPATIENT WEIGHT:Weight (lb):Weight (oz):Weight (kg): 54.545Physical ExamGeneral appearance: awakeCardiovascular: regular rate rhythmRespiratory: clear to auscultationAbdomen: non-tenderExtremities: Extremities: no edemaNeuro/DRAFTER: CNII-XII intactResultsFindings/Data:Laboratory Tests08/28/24 0233:[Embedded Image Not Available]Laboratory Tests 08/28 233 Chemistry Sodium (136 - 145 mmol/L) 141 Potassium (3.5 - 5.1 mmol/L) 3.1 L Chloride (98 - 107 mmol/L) 104 BUN (7 - 18 mg/dL) 26 H Creatinine (0.6 - 1.0 mg/dL) 3.9 H Glucose (74 - 106 mg/dL) 190 H Calcium (8.5 - 10.1 mg/dL) 7.9 LLaboratory Tests 08/28 1743 Hematology WBC (4.0 - 10.5 10 3/uL) 3.2 L 3.7 L RBC (3.93 - 5.22 10 6/uL) 2.75 L 2.96 L Hgb (11.2 - 15.7 g/dL) 8.3 L 8.9 L Hct (34.1 - 44.9 %) 28.6 L 30.0 L MCV (79.4 - 94.8 fL) 104.0 H 101.4 H MCH (25.6 - 32.2 pg) 30.2 30.1 MCHC (32.2 - 35.5 g/dL) 29.0 L 29.7 L RDW (11.7 - 14.4 %) 15.7 H 15.9 H Plt Count (150 - 400 10 3/uL) 62 L 78 L MPV (9.4 - 12.3 fL) 12.0Chemistry: 08/28 1602 1122 0611 0233 Chemistry Sodium (136 - 145 mmol/L) 141 Potassium (3.5 - 5.1 mmol/L) 3.1 L Chloride (98 - 107 mmol/L) 104 Carbon Dioxide (21 - 32 mmol/L) 28 BUN (7 - 18 mg/dL) 26 H Creatinine (0.6 - 1.0 mg/dL) 3.9 H Glucose (74 - 106 mg/dL) 190 H POC Glucose (70 - 110 mg/dl) 83 107 130 H 142 H Calcium (8.5 - 10.1 mg/dL) 7.9 L 08/27 2313 Chemistry POC Glucose (70 - 110 mg/dl) 216 HRecent ImpressionsCOMPUTERIZED TOMOGRAPHY - CT ABDOMEN/PELVIS W/O CONT 08/27 1809 Report Impression - Status: SIGNED Entered: 08/27/2024 1859IMPRESSION:1. Moderate right pleural effusion with associated atelectasis,decreased from 12/03/2023. Previously seen left pleural effusionhas resolved. Subtle ill-defined groundglass opacity in theright upper and right middle lobe, possibly infectious orinflammatory in etiology.2. Cardiomegaly. Dilated pulmonary trunk and central mainpulmonary arteries as may be seen with pulmonary arterialhypertension, similar to prior.3. Redemonstrated indeterminate 2.7 cm left lower pole renalmass,, unchanged from 05/31/2023. Correlate with any interimworkup and consider further evaluation with CT urogram or renalcontrast MRI, as warranted.4. No evidence of bowel obstruction. Appendix is not visualizedbut there are no secondary signs of acute appendicitis. Noevidence of diverticulitis.5. Intra-abdominal third spacing and body:Electronically signed by: Silver Frazier MD 08/27/2024 06:56 PMEST RPWorkstation: [id number] By: DANNA Frazier M.D.COMPUTERIZED TOMOGRAPHY - CT CHEST W/O CONTRAST 08/27 1809 Report Impression - Status: SIGNED Entered: 08/27/2024 1859IMPRESSION:1. Moderate right pleural effusion with associated atelectasis,decreased from 12/03/2023. Previously seen left pleural effusionhas resolved. Subtle ill-defined groundglass opacity in theright upper and right middle lobe, possibly infectious orinflammatory in etiology.2. Cardiomegaly. Dilated pulmonary trunk and central mainpulmonary arteries as may be seen with pulmonary arterialhypertension, similar to prior.3. Redemonstrated indeterminate 2.7 cm left lower pole renalmass,, unchanged from 05/31/2023. Correlate with any interimworkup and consider further evaluation with CT urogram or renalcontrast MRI, as warranted.4. No evidence of bowel obstruction. Appendix is not visualizedbut there are no secondary signs of acute appendicitis. Noevidence of diverticulitis.5. Intra-abdominal third spacing and body:Electronically signed by: Silver Frazier MD 08/27/2024 06:56 PMEST RPWorkstation: [id number] By: DANNA Frazier M.D.COMPUTERIZED TOMOGRAPHY - CT BRAIN W/O CONTRAST 08/27 1809 Report Impression - Status: SIGNED Entered: 08/27/2024 1834IMPRESSION:No acute intracranial abnormality.Electronically signed by: Catherine Banda MD 08/27/2024 06:32 PMEST RPWorkstation: [id number] By: ELEAZARHEDALAYNA BANDA M.D.Laboratory Tests 08/27 174 Chemistry Magnesium (1.6 - 2.6 mg/dL) 1.7Laboratory Tests08/28/24 0233:[Embedded Image Not Available]Laboratory Tests 08/28 1602 1122 0611 0233 Chemistry Sodium (136 - 145 mmol/L) 141 Potassium (3.5 - 5.1 mmol/L) 3.1 L Chloride (98 - 107 mmol/L) 104 Carbon Dioxide (21 - 32 mmol/L) 28 Anion Gap (7 - 16 mmol/L) 9 BUN (7 - 18 mg/dL) 26 H Creatinine (0.6 - 1.0 mg/dL) 3.9 H Est GFR (CKD-EPI 2020) (>90.0) 13.0 L BUN/Creatinine Ratio (4 - 33) 6 Glucose (74 - 106 mg/dL) 190 H POC Glucose (70 - 110 mg/dl) 83 107 130 H 142 H Calcium (8.5 - 10.1 mg/dL) 7.9 L 08/27 2313 Chemistry POC Glucose (70 - 110 mg/dl) 216 HLaboratory Tests 08/28 0233 Hematology WBC (4.0 - 10.5 10 3/uL) 3.2 L RBC (3.93 - 5.22 10 6/uL) 2.75 L Hgb (11.2 - 15.7 g/dL) 8.3 L Hct (34.1 - 44.9 %) 28.6 L MCV (79.4 - 94.8 fL) 104.0 H MCH (25.6 - 32.2 pg) 30.2 MCHC (32.2 - 35.5 g/dL) 29.0 L RDW (11.7 - 14.4 %) 15.7 H Plt Count (150 - 400 10 3/uL) 62 L Platelet Estimate (ADEQUATE) DECREASED Platelet Morphology (NORMAL) NORMALResults: labs reviewedDiagnosis, Assessment PlanHospital course to date:ImpressionShortness of breath is improvingGeneralized weaknessQuestion pneumonia or opacity in the lung question etiologyHistory of end-stage renal disease on hemodialysisHypokalemiaAcute blood loss anemia chronic in nature probably secondary end-stage renaldiseaseModerate right-sided pleural effusionPlanAwait pulmonary eval and recommendationsAppropriate new nephrology inputReplace KDiscussed with nurse at 2147RPT#:[id number] OF REPORT NGOZI Grove MD- [facility] ([facility])Nephrology Consultation NoteREPORT#:[id number] REPORT STATUS: SignedDATE:08/28/24 TIME: 1011PATIENT: NASH LLANOS UNIT #: [id number]#: [id number] [facility]AGE: 54 SEX: F ATTEND: Lesly Navarro MDADM AUTHOR: LINA MELVIN MD R1REP SRV REP SRV TM: 1011* ALL edits or amendments must be made on the electronic/computer document *Lina Melvin 08/28/24 1011:History of Present IllnessReason for consult:ESRD on hemodialysisHPI:Patient is a 54-year-old female past medical history of heart failure, diabetesmellitus and ESRD on hemodialysis who presented after PCP referred her to the EDfor pancytopenia. She endorses lethargy. She has a history of requiringtransfusions. Patient goes for dialysis on Tuesday and Tuesday.Nephrology was consulted for management of ESRD on hemodialysis. Her lastdialysis was yesterday.History - Adult longitudinalPast medical history:Reports: Anemia, Asthma, Congestive heart failure, COPD, Coronary artery disease, Diabetes mellitus, Hypertension.Additional medical history:Hypertension Pulmonary hypertension Diabetes mellitus type 2, ESRD, renal cell carcinoma grade 1, Dyslipidemia, Coronary artery disease s/p CAGB and stenting, COPD, Hypothyroidism, GERD, Chronic pain syndromePast surgical history:Reports: Appendectomy, CABG, Cholecystectomy, , Hysterectomy,Tonsillectomy, Vascular procedure (cardiac stents), Bilateral tubal ligation.Additional surgical history:PD catheter placementFamily history:Reports: Cancer, Diabetes, Hypertension.Additional family history:No history of chronic kidney disease or end-stage renal diseaseAlcohol use: Denies EtOH useDrug use: Denies recreational drugsSmoking status for patients 13 years old or older: Former SmokerOther social history: Good social supportAllergies:Coded Allergies:insulin glargine (From BASAGLAR KWIKPEN U-100 INSULIN) (FACE NUMB 12/09/23)lisinopril (Intermediate, COUGH 12/09/23)ObjectiveGeneralVS/I O:Vital Signs: Date Time Temp Pulse Resp B/P B/P Pulse O2 O2 Flow FiO2 Mean Ox Delivery Rate 08/28 0843 62 173/82 08/28 0842 62 173/82 08/28 0841 62 173/82 08/28 0841 173/82 08/28 0840 62 173/82 08/28 0839 62 173/82 08/28 0838 173/82 08/28 0824 98.6 62 16 173/82 112.2 92 Room air 08/28 0515 61 176/72 08/28 0337 61 176/72 106.8 08/28 0251 64 189/84 08/28 0205 98.4 64 18 189/84 118.9 95 08/28 0041 62 178/75 08/28 0017 62 178/75 08/28 0016 62 178/75 08/27 2250 98.4 62 18 178/75 109.1 94 Room air 08/27 1800 61 179/72 104 92 08/27 1746 188/82 118 08/27 1745 93 08/27 1740 98.6 87 16 145/76 99 100 Room air24 hour I O ending at 0700: 08/28 0700 08/27 1900 Intake Total Output Total Balance Patient 54.545 kg Weight Weight Stated/Reported Measurement MethodPATIENT WEIGHT:Weight (lb):Weight (oz):Weight (kg): 54.545Medications:Active Meds + DC'd Last 24 HrsLosartan Potassium (COZAAR 50 MG TABLET) 50 MG DAILY POAmlodipine Besylate (NORVASC 5 MG TABLET) 10 MG DAILY POAspirin (ASPIRIN 325MG TAB) 325 MG DAILY POAspirin (ASPIRIN 325MG TAB) 325 MG DAILY POAtorvastatin Calcium (LIPITOR 40MG TABLET) 80 MG DAILY POClopidogrel Bisulfate (PLAVIX 75 MG TAB) 75 MG DAILY POEzetimibe (ZETIA 10 MG TABLET) 10 MG DAILY POFurosemide (LASIX 20 MG TABLET) 20 MG DAILY POIsosorbide Mononitrate (IMDUR 60 MG TABLET SA) 60 MG DAILY POLevofloxacin (LEVAQUIN 250 MG TAB) 250 MG DAILY POLosartan Potassium (COZAAR 25 MG TABLET) 25 MG DAILY PO (DC)Vitamin B Complex/Vit C/Folic Acid (NEPHRO-ARIANNA) 1 TAB DAILY POCarvedilol (COREG 25 MG TABLET) 25 MG BID MEALS POOndansetron HCl (ONDANSETRON 2 MG/ML SDV VIAL) 4 MG Q6H PRN PRN IVLevothyroxine Sodium (SYNTHROID 75 MCG TABLET) 75 MCG 0600 PODoxazosin Mesylate (CARDURA 1 MG TABLET) 2 MG NOW STA PO (DC)Nitroglycerin (NITROSTAT 0.4 MG TABLET SL) 0.4 MG ONCE ONE SL (DC)Acetaminophen/Butalbital/Caffeine (FIORICET TABLET) 1 TAB Q6H PRN PRN POPotassium Chloride (K-DUR 20 MEQ TABLET SA) 40 MEQ Q1H PO (DC)Hydralazine HCl (HYDRALAZINE 25 MG TABLET) 75 MG Q6HR POAlbuterol/Ipratropium (DUONEB 0.5-3 MG/3 ML) 3 ML RTQ4H PRN PRN INHDoxazosin Mesylate (CARDURA 1 MG TABLET) 2 MG BID POFolic Acid (FOLIC ACID 1MG TABLET) 1 MG BID POAcetazolamide (ACETAZOLAMIDE 250MG TABLET) 500 MG BID POOxycodone/Acetaminophen (oxyCODONE/APAP 10/325 MG TAB) 1 TAB Q6H PRN PRNPOTopiramate (TOPAMAX 25 MG TAB) 25 MG BEDTIME POPotassium Chloride (K-DUR 20 MEQ TABLET SA) 40 MEQ Q4H PO (DC)Sodium Chloride (NORMAL SALINE LOCK/FLUSH) 10 ML Q12HR IVSodium Chloride (NORMAL SALINE LOCK/FLUSH) 10 ML ASDIR PRN IVMagnesium Sulfate/Dextrose (MAGNESIUM SULFATE 1GM/100ML D5W) 2 G X1ED STAIV (DC)Potassium Chloride/Water (POTASSIUM CL 20mEq/100 ml Isotonic Soln) 100 MLQ2H IV (DC)Morphine Sulfate (morphine SULFATE 4 MG/ML INJ) 4 MG X1ED STA IV (DC)ResultsFindings/Data:Laboratory Tests 08/28 08/28 08/27 08/27 08/27 0611 0233 2313 1936 1743Chemistry Sodium (136 - 145 mmol/L) 141 143 Potassium (3.5 - 5.1 mmol/L) 3.1 L 2.9 CL Chloride (98 - 107 mmol/L) 104 105 Carbon Dioxide (21 - 32 mmol/L) 28 31 Anion Gap (7 - 16 mmol/L) 9 7 BUN (7 - 18 mg/dL) 26 H 24 H Creatinine (0.6 - 1.0 mg/dL) 3.9 H 3.6 H Est GFR (CKD-EPI 2020) (>90.0) 13.0 L 14.3 L BUN/Creatinine Ratio (4 - 33) 6 6 Glucose (74 - 106 mg/dL) 190 H 146 H POC Glucose (70 - 110 mg/dl) 142 H 216 H Calcium (8.5 - 10.1 mg/dL) 7.9 L 8.3 L Phosphorus (2.5 - 4.9 mg/dL) 4.3 Magnesium (1.6 - 2.6 mg/dL) 1.7 Total Bilirubin (0.2 - 1.00 mg/dL) 0.90 AST (15 - 37 UNITS/L) 10 L ALT (13 - 61 UNITS/L) < 10 L Alkaline Phosphatase (45 - 117 86UNITS/L) Troponin I High Sens (<54 ng/L) 66 CH 68 CH Total Protein (6.4 - 8.2 g/dL) 6.9 Albumin (3.4 - 5.0 g/dL) 3.3 L Globulin (1.4 - 4.8 g/dL) 3.6 Albumin/Globulin Ratio (0.7 - 3.6) 0.9Laboratory Tests 08/28 08/27 08/27 0233 1758 1743 Hematology WBC (4.0 - 10.5 10 3/uL) 3.2 L 3.7 L RBC (3.93 - 5.22 10 6/uL) 2.75 L 2.96 L Hgb (11.2 - 15.7 g/dL) 8.3 L 8.9 L Hct (34.1 - 44.9 %) 28.6 L 30.0 L MCV (79.4 - 94.8 fL) 104.0 H 101.4 H MCH (25.6 - 32.2 pg) 30.2 30.1 MCHC (32.2 - 35.5 g/dL) 29.0 L 29.7 L RDW (11.7 - 14.4 %) 15.7 H 15.9 H Plt Count (150 - 400 10 3/uL) 62 L 78 L MPV (9.4 - 12.3 fL) 12.0 Immature Gran % (0.0 - 0.4 %) 0.3 Neutrophils % (34.0 - 71.1 %) 60.0 Lymphocytes % (19.3 - 51.7 %) 20.5 Monocytes % (4.7 - 12.5 %) 13.4 H Eosinophils % (0.7 - 5.8 %) 4.7 Basophils % (0.1 - 1.2 %) 1.1 Nucleated RBC % (0.0 - 0.2 %) 0.0 Immature Gran # (0.00 - 0.03 10 3/uL) 0.01 Neutrophils # (1.56 - 6.13 10 3/uL) 2.19 Lymphocytes # (1.18 - 3.74 10 3/uL) 0.75 L Monocytes # (0.24 - 0.63 10 3/uL) 0.49 Eosinophils # (0.04 - 0.36 10 3/uL) 0.17 Basophils # (0.01 - 0.08 10 3/uL) 0.04 Nucleated RBCs # (0.00 - 0.18 10 3/uL) 0.00 WBC Evaluation Comment ABNORMAL Platelet Estimate (ADEQUATE) DECREASED Platelet Morphology (NORMAL) NORMALLaboratory Tests 08/27 1936 Serology COVID-19 (MAELIE) (Negative) Negative Influenza Type A Ag (NEGATIVE) NEGATIVE Influenza Type B Ag (NEGATIVE) NEGATIVERadiology data:Recent Impressions:COMPUTERIZED TOMOGRAPHY - CT ABDOMEN/PELVIS W/O CONT 08/27 180 Report Impression - Status: SIGNED Entered: 08/27/2024 1859IMPRESSION:1. Moderate right pleural effusion with associated atelectasis,decreased from 12/03/2023. Previously seen left pleural effusionhas resolved. Subtle ill-defined groundglass opacity in theright upper and right middle lobe, possibly infectious orinflammatory in etiology.2. Cardiomegaly. Dilated pulmonary trunk and central mainpulmonary arteries as may be seen with pulmonary arterialhypertension, similar to prior.3. Redemonstrated indeterminate 2.7 cm left lower pole renalmass,, unchanged from 05/31/2023. Correlate with any interimworkup and consider further evaluation with CT urogram or renalcontrast MRI, as warranted.4. No evidence of bowel obstruction. Appendix is not visualizedbut there are no secondary signs of acute appendicitis. Noevidence of diverticulitis.5. Intra-abdominal third spacing and body:Electronically signed by: Silver Frazier MD 08/27/2024 06:56 PMEST RPWorkstation: [id number] By: DANNA Frazier M.D.COMPUTERIZED TOMOGRAPHY - CT CHEST W/O CONTRAST 08/27 1809 Report Impression - Status: SIGNED Entered: 08/27/2024 1859IMPRESSION:1. Moderate right pleural effusion with associated atelectasis,decreased from 12/03/2023. Previously seen left pleural effusionhas resolved. Subtle ill-defined groundglass opacity in theright upper and right middle lobe, possibly infectious orinflammatory in etiology.2. Cardiomegaly. Dilated pulmonary trunk and central mainpulmonary arteries as may be seen with pulmonary arterialhypertension, similar to prior.3. Redemonstrated indeterminate 2.7 cm left lower pole renalmass,, unchanged from 05/31/2023. Correlate with any interimworkup and consider further evaluation with CT urogram or renalcontrast MRI, as warranted.4. No evidence of bowel obstruction. Appendix is not visualizedbut there are no secondary signs of acute appendicitis. Noevidence of diverticulitis.5. Intra-abdominal third spacing and body:Electronically signed by: Silver Frazier MD 08/27/2024 06:56 PMEST RPWorkstation: [id number] By: DANNA Frazier M.D.COMPUTERIZED TOMOGRAPHY - CT BRAIN W/O CONTRAST 08/27 1809 Report Impression - Status: SIGNED Entered: 08/27/2024 1834IMPRESSION:No acute intracranial abnormality.Electronically signed by: Catherine Banda MD 08/27/2024 06:32 PMEST RPWorkstation: [id number] By: FLACA BANDA M.D.Results: labs reviewed, vital signs reviewedFree Text Obj NotesFree Text Obj Notes:Gen: awake, alert, well appearing, no acute distress.Eyes: EOMI, PERRL, conjunctiva normal.Cardio: normal rate and rhythm. No murmurs/gallops/rubs.Pulm: breath sounds symmetric bilat, no crackles/wheeze.GI: Soft, non-tender, non-distended, no pulsatile mass, no guarding, no rebound.Musculoskeletal: inspection nl, no swelling, no deformity.Skin: warm, dry, no cyanosis, no diaphoresis, no rash.Neuro: A O x 3, normal motor/sensation to all extremities, CN II-XII grosslyintact.Psych: nl mood, nl affect, nl thought content.Diagnosis, Assessment PlanFree Text DxA P NotesFree text DxA P notes:Assessment and planESRD on hemodialysis-Patient goes for dialysis Tuesday with last dialysis yesterday.-Creatinine 3.9, BUN 26, GFR 13 on 08/28 after hemodialysis yesterday-Continue to monitor a.m. labsPancytopenia-WBC 3.7, hemoglobin 8.9, hematocrit 30, platelet count 78 on admission-Transfuse PRBC if hemoglobin less than 7.Patient discussed with Dr. Wolff, attending physicianKRISTINE WOLFF MD 08/30/24 1033:AttestationsPhysician AttestationReviewed findings plan:Reviewed the findings and plan as documented by [insert DIGNA name];* my personal evaluation is[ ] at 1033 at 1033RPT#:[id number] OF REPORT [id number] [facility] ([facility])EMERGENCY PROVIDER REPORTREPORT#:[id number] REPORT STATUS: SignedDATE:08/27/24 TIME: 1755PATIENT: NASH LLANOS UNIT #: [id number]#: [id number] ROOM/BED: [facility]-ADOB: [birth year] AGE: 54 SEX: F PCP PHYS: Chad Stewart MDSERVICE AUTHOR: Mateus Rudd DO R3REP SRV REP SRV TM: 6521* ALL edits or amendments must be made on the electronic/computer document *Mateus Rudd 08/27/24 1755:HPI-General IllnessFree Text HPI NotesFree Text HPI NotesThe patient is a 54-year-old with a history of dialysis presenting to theemergency department for abnormal labs. The patient's family doctor referredthem due to low hemoglobin, platelets, and potassium levels, which were lastchecked on Tuesday of the previous week. The patient reports feeling tired andhas a history of requiring transfusions. The patient confirms having dialysistreatments on a Tuesday, Tuesday, Tuesday schedule, with the last session being. 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 Pereira. The patient has experiencedfalls, including an incident two weeks ago resulting in a significant bruiseafter hitting a trash can. Additionally, the patient has been experiencingdiarrhea and vomiting.GeneralConfirmed Patient YesInitial Greet Date/Time 08/27/24 1712PresentationChief Complaint low blood countsPortions of this section were scribed by ELINOR PONCE on 08/27/24 [id number] of OneShiftCommunity Hospital of GardenaAll systems rev neg except as marked.Portions of this section were scribed by ELINOR PONCE on 08/27/24 [id number] Medical History - AdultStated Complaint LOW PLT, HGB, K - SENT BYPCPAllergiesCoded Allergies:insulin glargine (From BASAGLAR KWIKPEN U-100 INSULIN) (FACE NUMB 12/09/23)lisinopril (Intermediate, COUGH 12/09/23)Home MedicationsActive ScriptsCarvediloL (Coreg) 25 MG PO BID MEALS 30 Days #60 TAB Prov: 06/07/23amLODIPine (Norvasc) 10 MG PO DAILY 30 Days #30 TAB Prov: 06/07/23Doxazosin (Cardura) 2 MG PO BID Doxazosin (Cardura) 2 MG PO BID #60 TAB Ref 1 Prov: 12/08/23Discontinued ScriptsASPIRIN/CA CARB/MG/AL (ASCRIPTIN) 325 MG PO DAILY ASPIRIN/CA CARB/MG/AL (ASCRIPTIN) 325 MG PO DAILY #30 TAB Prov: 12/03/23 DC: 12/09/24 2357 Changed/DC prior to admitLevoFLOXacin (Levaquin) 250 MG PO DAILY LevoFLOXacin (Levaquin) 250 MG PO DAILY #5 TAB Prov: 12/08/23 DC: 08/27/242356 DC by provider orderIpratropium/AlbuteroL (Duoneb) 3 ML INH RTQ4H PRN PRN DYSPNEA Ipratropium/AlbuteroL (Duoneb) 3 ML INH RTQ4H PRN PRN DYSPNEA #30 Ref 1 Prov: 12/08/23 DC: 08/27/242356 Patient stopped takingFolic Acid 1 MG PO BID Folic Acid 1 MG PO BID #30 TAB Ref 1 Prov: 12/08/23 DC: 08/27/242356 Patient stopped takingB Complex/Vit C/Folic Acid (Renal Caps Softgel) 1 TAB PO DAILY B Complex/Vit C/Folic Acid (Renal Caps Softgel) 1 TAB PO DAILY #30 CAP Ref1 Prov: 12/08/23 DC: 08/27/242356 Changed/DC prior to admitReported MedicationsMed List Information (*Med List Information) 1 EA MISC .CANCEL AT DISCHARGEclopidogreL (Plavix) 75 MG PO DAILYIsosorbide Mononitrate ER (Imdur) 60 MG PO DAILYLevothyroxine (Synthroid) 75 MCG PO DAILYoxyCODONE/Acetaminophen (Percocet 10-325) 1 TAB PO Q6H PRN PRN PAIN SCALE 7-10Cholecalciferol (Vitamin D3) (Vitamin D3) 50,000 UNITS PO N20GhczuWKAYTAV (Apresoline) 75 MG PO K6OTDudstidxcaoo (Lipitor) 80 MG PO DAILYEzetimibe (Zetia) 10 MG PO DAILYOndansetron (Zofran) 4 MG PO Q8H PRN PRN NAUSEA AND VOMITINGEscitalopram (Lexapro) 10 MG PO BEDTIMEPANTOPRAZOLE (PROTONIX) 20 MG PO DAILYacetaZOLAMIDE (Diamox) 500 MG PO BIDDiscontinued Reported MedicationsASPIRIN 325 MG PO DAILYFurosemide (Lasix) 20 MG PO DAILYLosartan (Cozaar) 25 MG PO DAILYBenzonatate (Tessalon Perles) 100 MG PO TID PRN COUGHAspirin (BABY ASPIRIN) 81 MG PO DAILYTopiramate (Topamax) 25 MG PO BEDTIMEPast Medical History:Reports: Anemia, Asthma, Congestive heart failure, COPD, Coronary artery disease, Diabetes mellitus, Hypertension.Additional Medical HistoryHypertension Pulmonary hypertension Diabetes mellitus type 2, ESRD, renal cell carcinoma grade 1, Dyslipidemia, Coronary artery disease s/p CAGB and stenting, COPD, Hypothyroidism, GERD, Chronic pain syndromePast Surgical History:Reports: Appendectomy, CABG, Cholecystectomy, , Hysterectomy,Tonsillectomy, Vascular procedure (cardiac stents), Bilateral tubal ligation.Additional Surgical HistoryPD catheter placementFamily History:Reports: Cancer, Diabetes, Hypertension.Additional Family HistoryNo history of chronic kidney disease or end-stage renal diseaseAlcohol Use Denies EtOH useDrug Use Denies recreational drugsOther Social History Good social supportPortions of this section were scribed by ELINOR PONCE on 08/27/24 [id number] ExamVital SignsReview of Vital Signs ReviewedFree Text PE NotesFree Text PE NotesGen: awake, alert, well appearing, no acute distress.Eyes: EOMI, PERRL, conjunctiva normal.HENT: Airway patent, mucous membranes moist, uvula midline, no meningismus.Cardio: normal rate and rhythm. No murmurs/gallops/rubs.Pulm: breath sounds symmetric bilat, no crackles/wheeze.GI: Soft, non-tender, non-distended, no pulsatile mass, no guarding, no rebound.MS Upper extrm: inspection nl, no swelling, no deformity.MS Lower extrm: inspection nl, no swelling/edema, no deformity.Skin: warm, dry, no cyanosis, no diaphoresis, no rash.Neuro: A O x 3, normal motor/sensation to all extremities, CN II-XII grosslyintact.Psych: nl mood, nl affect, nl thought content.Portions of this section were scribed by ELINOR PONCE on 08/27/24 [id number] DiagnosticsLab Results InterpretationConsiderations Independ review imaging, Reviewed prior recordsResultsLaboratory Tests08/27/24 1743:[Embedded Image Not Available]Laboratory Tests: 08/27 08/27 08/27 1936 1758 1743 Chemistry Sodium (136 - 145 mmol/L) 143 Potassium (3.5 - 5.1 mmol/L) 2.9 CL Chloride (98 - 107 mmol/L) 105 Carbon Dioxide (21 - 32 mmol/L) 31 Anion Gap (7 - 16 mmol/L) 7 BUN (7 - 18 mg/dL) 24 H Creatinine (0.6 - 1.0 mg/dL) 3.6 H Est GFR (CKD-EPI 2020) (>90.0) 14.3 L BUN/Creatinine Ratio (4 - 33) 6 Glucose (74 - 106 mg/dL) 146 H Calcium (8.5 - 10.1 mg/dL) 8.3 L Phosphorus (2.5 - 4.9 mg/dL) 4.3 Magnesium (1.6 - 2.6 mg/dL) 1.7 Total Bilirubin (0.2 - 1.00 mg/dL) 0.90 AST (15 - 37 UNITS/L) 10 L ALT (13 - 61 UNITS/L) < 10 L Alkaline Phosphatase (45 - 117 UNITS/L) 86 Troponin I High Sens (<54 ng/L) 66 CH 68 CH Total Protein (6.4 - 8.2 g/dL) 6.9 Albumin (3.4 - 5.0 g/dL) 3.3 L Globulin (1.4 - 4.8 g/dL) 3.6 Albumin/Globulin Ratio (0.7 - 3.6) 0.9 Hematology WBC (4.0 - 10.5 10 3/uL) 3.7 L RBC (3.93 - 5.22 10 6/uL) 2.96 L Hgb (11.2 - 15.7 g/dL) 8.9 L Hct (34.1 - 44.9 %) 30.0 L MCV (79.4 - 94.8 fL) 101.4 H MCH (25.6 - 32.2 pg) 30.1 MCHC (32.2 - 35.5 g/dL) 29.7 L RDW (11.7 - 14.4 %) 15.9 H Plt Count (150 - 400 10 3/uL) 78 L MPV (9.4 - 12.3 fL) 12.0 Immature Gran % (0.0 - 0.4 %) 0.3 Neutrophils % (34.0 - 71.1 %) 60.0 Lymphocytes % (19.3 - 51.7 %) 20.5 Monocytes % (4.7 - 12.5 %) 13.4 H Eosinophils % (0.7 - 5.8 %) 4.7 Basophils % (0.1 - 1.2 %) 1.1 Nucleated RBC % (0.0 - 0.2 %) 0.0 Immature Gran # (0.00 - 0.03 10 3/uL) 0.01 Neutrophils # (1.56 - 6.13 10 3/uL) 2.19 Lymphocytes # (1.18 - 3.74 10 3/uL) 0.75 L Monocytes # (0.24 - 0.63 10 3/uL) 0.49 Eosinophils # (0.04 - 0.36 10 3/uL) 0.17 Basophils # (0.01 - 0.08 10 3/uL) 0.04 Nucleated RBCs # (0.00 - 0.18 10 3/uL) 0.00 WBC Evaluation Comment ABNORMAL Serology COVID-19 (AMELIE) (Negative) NegativeRecent Impressions:COMPUTERIZED TOMOGRAPHY - CT ABDOMEN/PELVIS W/O CONT 08/27 1809 Report Impression - Status: SIGNED Entered: 08/27/2024 1859IMPRESSION:1. Moderate right pleural effusion with associated atelectasis,decreased from 12/03/2023. Previously seen left pleural effusionhas resolved. Subtle ill-defined groundglass opacity in theright upper and right middle lobe, possibly infectious orinflammatory in etiology.2. Cardiomegaly. Dilated pulmonary trunk and central mainpulmonary arteries as may be seen with pulmonary arterialhypertension, similar to prior.3. Redemonstrated indeterminate 2.7 cm left lower pole renalmass,, unchanged from 05/31/2023. Correlate with any interimworkup and consider further evaluation with CT urogram or renalcontrast MRI, as warranted.4. No evidence of bowel obstruction. Appendix is not visualizedbut there are no secondary signs of acute appendicitis. Noevidence of diverticulitis.5. Intra-abdominal third spacing and body:Electronically signed by: Silver Frazier MD 08/27/2024 06:56 PMEST RPWorkstation: [id number] By: [email or web address] - Silver Frazier M.D.COMPUTERIZED TOMOGRAPHY - CT CHEST W/O CONTRAST 08/27 1809 Report Impression - Status: SIGNED Entered: 08/27/2024 1859IMPRESSION:1. Moderate right pleural effusion with associated atelectasis,decreased from 12/03/2023. Previously seen left pleural effusionhas resolved. Subtle ill-defined groundglass opacity in theright upper and right middle lobe, possibly infectious orinflammatory in etiology.2. Cardiomegaly. Dilated pulmonary trunk and central mainpulmonary arteries as may be seen with pulmonary arterialhypertension, similar to prior.3. Redemonstrated indeterminate 2.7 cm left lower pole renalmass,, unchanged from 05/31/2023. Correlate with any interimworkup and consider further evaluation with CT urogram or renalcontrast MRI, as warranted.4. No evidence of bowel obstruction. Appendix is not visualizedbut there are no secondary signs of acute appendicitis. Noevidence of diverticulitis.5. Intra-abdominal third spacing and body:Electronically signed by: Silver Frazier MD 08/27/2024 06:56 PMEST RPWorkstation: [id number] By: [email or web address] Juan Frazier M.D.COMPUTERIZED TOMOGRAPHY - CT BRAIN W/O CONTRAST 08/27 1809 Report Impression - Status: SIGNED Entered: 08/27/2024 183IMPRESSION:No acute intracranial abnormality.Electronically signed by: Catherine Banda MD 08/27/2024 06:32 PMEST RPWorkstation: [id number] By: [email or web address] Juan BANDA M.D. Lab Imaging StatementLaboratory radiographic studies reviewed and considered in the medicaldecision-making.Re-Evaluation MDMFree Text MDM NotesAdditional TextDx include but not limited to: Anemia, thrombocytopenia, hypokalemia, potentiallung cancer, CVA, metabolic, electorlyte abnormality,History Obtained From: patient, the patient's advocate.Personally viewed and interpreted the following:EKG interpretation: normal sinus, rate 64, no ST elev or depression, T waveinversion in V5/V6CT interpretation: suspicous lobe infilitrate for pneumonia, right pleuraleffusion left sided, cardiomegaly.ED Course: On initial review vital signs are stable, patient is afebrile. Thepatient presented with pancytopenia and symptoms of fatigue, falls, diarrhea,and vomiting. The patient's potassium is low, and the patient is expected to beadmitted for further management and monitoring. Treatment: Admission for furtherevaluation and management pancytopenia potential transfusions.1750Showed anemia 8.9, WBC 3.7. Potassium 2.9, no EKG changes. Replaced with IV potand magnesium. BUN 24, Cr 3.6. Trop elev no ischemia on EKG. No CP at this time.Vitals remained stable.1830Spoke with inpatient team, agree with admission. Possible thoracentesis forfluid overload, unlikely empyema or infectious.Medical history was obtained from: the patient's advocate.Personally Reviewed and interpreted the following: n/aDecision rules scores evaluated: n/aMedications given during visit: Potassium, Magnesium, Morphine,Discussed case with: the patient.Code Status: Full code.Shared decision making: Extensive shared decision making was utilized whendetermining the below disposition.Disposition: Results as above discussed with the patient. AdmissionDictation - This chart was prepared in part using voice recognition software andthus may contain unintended word substitutions or dictation errors despitereasonable efforts to screen for and correct such errors. If there are anyquestions regarding intended documentation please contact medical records. Theprovider obtained consent from the patient to record the conversation and use AIto create a draft version of the note. The provider made edits (whereappropriate and necessary) and signed the note. This signed note will be part ofthe medical record.ED CourseMedication(s) OrderedMedication(s) Ordered:Central Nervous System Agents Sig/Inocencia Start time Last Medication Dose Route Stop Time Status Admin Morphine Sulfate 4 MG X1ED STA 08/27 1754 DC 08/27 IV 08/27 1755 1804Electrolytic, Caloric, And Galina Sig/Inocencia Start time Last Medication Dose Route Stop Time Status Admin Magnesium Sulfate/ 2 G X1ED STA 08/27 1914 DC 08/27 Dextrose IV 08/27 1915 1930 Potassium Chloride/ 100 ML Q2H 08/27 1914 DC 08/27 Water IV 08/27 2313 1931Portions of this section were scribed by ELINOR PONCE on 08/27/24 [id number] Discharge DepartureDisposition DecisionHospitalize )( Accepts Hospitalization Yes )( Reason for HospitalizationGENERALIZED WEAKNESS, HYPOKALEMIA, ESRD ON DIALYSIS WITH FLUID OVERLOAD )( Accepted Time 1918 )( Accepted Date 08/27/24Discharge/Care PlanCounseled Regarding Diagnosis, Lab results, Imaging studies, Medication changes,Need for admissionRx Drug Database Reviewed Yes(Auto) PrescriptionsCurrent Visit ScriptsLevoFLOXacin (Levaquin) 500 MG PO Q48HR LevoFLOXacin (Levaquin) 500 MG PO Q48HR #3 TABLosartan (Cozaar) 50 MG PO DAILY Losartan (Cozaar) 50 MG PO DAILY #30 TABASPIRIN/CA CARB/MG/AL (ASCRIPTIN) 325 MG PO DAILY ASPIRIN/CA CARB/MG/AL (ASCRIPTIN) 325 MG PO DAILY #30 TABButalb/Acetaminophen/Caffeine (Fioricet) 1 TAB PO Q6H PRN PRN PAIN SCALE 4-6 Butalb/Acetaminophen/Caffeine (Fioricet) 1 TAB PO Q6H PRN PRN PAIN SCALE 4-6 #60 TABTopiramate (Topamax) 25 MG PO BEDTIME Topiramate (Topamax) 25 MG PO BEDTIME #30 TABFurosemide (Lasix) 20 MG PO DAILY Furosemide (Lasix) 20 MG PO DAILY #30 TABFolic Acid 1 MG PO BID Folic Acid 1 MG PO BID #30 CLAUDIA Comp No3/Folic/C/Biotin/Zinc (NEPHPLEX RX) 1 TAB PO DAILY B Comp No3/Folic/C/Biotin/Zinc (NEPHPLEX RX) 1 TAB PO DAILY #30 TABPrescriptions Reviewed Risks, Benefits, Alternative treatment Admit NoteI have spoken with the patient and/or caregivers. I have explained the patient'scondition, diagnoses and treatment plan based on the information available to meat this time. I have answered the patient's and/or caregiver's questions andaddressed any concerns. The patient and/or caregivers have as good anunderstanding of the patient's diagnosis, condition and treatment plan as can beexpected at this point. The patient has been stabilized within the capability ofthe emergency department. The patient will be transported for further care andmanagement or will be moved to an observation or inpatient service. I havecommunicated with the staff or medical practitioner taking over this patient'scare.Portions of this section were scribed by ELINOR PONCE on 08/27/24 [id number] MENDIETA MD 08/27/24 1902:Physical ExamVital SignsVital SignsFirst Documented: Result Date Time Pulse Ox 100 12 1740 B/P 145/76 12/ 1740 B/P Mean 99 12/ 1740 O2 Delivery Room air 12 1740 Temp 37.0 12 1740 Pulse 87 12/ 1740 Resp 16 12 1740Last Documented: Result Date Time Pulse Ox 92 12/ 1800 B/P 179/72 12/ 1800 B/P Mean 104 12/ 1800 Pulse 61 12/ 1800 O2 Delivery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 Injectable Solution;Provider Administration Instructions:2 DOSES OF KCL 20 MEQ, MAX RATE 20 MEQ/HR WRIJE99 Start:0-Vgi-5062Jjg:27-Aug-20 Comments:Provider Administration Instructions:2 DOSES OF KCL 20 MEQ, MAX RATE 20 MEQ/HR 100 ML magnesium sulfate 10 MG/ML Injection;2 GRAM X1ED Quantity:2 WRIJE99 Start:7-Tgp-0875Ozm:27-Aug-20 Comments:[id number] Administration Instructions:Mag 1 gm runs 1 hour X 2 for total 2 gm 1 ML morphine sulfate 4 MG/M L Prefilled Syringe;4 MILLIGRAM X1ED Quantity:1 WRIJE99 Start:4-Lfd-5115Alv:27-Aug-20 Comments:[id number] Administration Instructions:IF PATIENT IS TAKING ORAL, PLEASE CALL PHARMACY. benzonatate 100 MG Oral Capsule;100 MILLIGRAM PO TID Start:27-Aug-2024 Status:Discontinued Comments:100 MG PO TID As Needed for COUGH escitalopram 10 MG Oral Tabl et [Lexapro];10 MILLIGRAM PO BEDTIME Start:27-Aug-2024 Comments:10 MG PO BEDTIME ondansetron 4 MG Oral Tablet [Zofran];4 MILLIGRAM PO Q8H PRN Start:27-Aug-2024 Status:Discontinued Comments:4 MG PO Q8H PRN As Needed for NAUSEA AND VOMITING aspirin 81 MG Chewable Table t;81 MILLIGRAM PO DAILY Start:27-Aug-2024 Status:Discontinued Comments:81 MG PO DAILY dapagliflozin 10 MG Oral Tab let [Farxiga];10 MILLIGRAM DAILY Quantity:1 Magui Grove MD Start:15-Dec-2023 Status:Discontinued Comments:[id number] 1 ML epoetin eh-epbx 98989 UNT/ML Injection [Retacrit];52374 UNIT DIALYSIS-DOSE DURING Quantity:2 Nimo Huerta MD Start:14-Dec-2023 Status:Discontinued Comments:[id number] Administration Instructions:WITH DIALYSISPER P T, HOLD IF HGB > 10HGB = REFRIGERATE lidocaine 25 MG/ML / priloca ine 25 MG/ML Topical Cream;1 APPL ASDIR Quantity:1 Nimo Huerta MD Start:14-Dec-2023 Status:Discontinued Comments:[id number] Administration Instructions:Apply within 1hr of fistula or graft cannulation sodium chloride 9 MG/ML Injectable Solution;250 MILLILITER DIALYSIS-DOSE DURING Quantity:1 Nimo Huerta MD Start:14-Dec-2023 Status:Discontinued Comments:[id number] Administration Instructions:FOR SYSTOLIC BLOOD PRESSURE LESS THAN 90 mmHg (USE 1ST)OR CRAMPING DURING DIALYSIS. MAY REPEAT X1. IFINEFFECTIVE, NOTIFY PHYSICIAN sodium chloride 9 MG/ML Injectable Solution;250 MILLILITER DIALYSIS-DOSE DURING Quantity:1 Nimo Huerta MD Start:14-Dec-2023 Status:Discontinued Comments:[id number] Administration Instructions:FOR SYSTOLIC BLOOD PRESSURE LESS THAN 90 mmHg (USE 1ST)OR CRAMPING DURING DIALYSIS. MAY REPEAT X1. IFINEFFECTIVE, NOTIFY PHYSICIAN pantoprazole 40 MG Delayed Release Oral Tablet [Protonix];40 MILLIGRAM DAILY@0600 Quantity:1 Nuria Martinez MD Start:14-Dec-2023 Status:Discontinued Comments:[id number] Administration Instructions:DO NOT CRUSH, CUT OR CHEW levothyroxine sodium 0.075 M G Oral Tablet [Synthroid];75 MICROGRAM DAILY@0600 Quantity:1 Nuria Mratinez MD Start:14-Dec-2023 Status:Discontinued Comments:[id number] hydrALAZINE hydrochloride 25 MG Oral Tablet;75 MILLIGRAM Q6HR Quantity:3 Nuria Martinez MD Start:14-Dec-2023 Status:Discontinued Comments:[id number] Administration Instructions: antihypertensive equiv. to Apresoline < >< >< >Caution, Look Alike Sound Alike< >< >< > diphenhydrAMINE hydrochlorid e 25 MG Oral Tablet [Benadryl];25 MILLIGRAM BEDTIME PRN Quantity:1 Nuria Martinez MD Start:13-Dec-2023 Status:Discontinued Comments:[id number] acetaminophen 325 MG / oxyCO DONE hydrochloride 10 MG Oral Tablet;1 TABLET Q6H PRN Quantity:1 Nuria Martinez MD Start:13-Dec-2023 Status:Discontinued Comments:[id number] 1 ML Sodium Chloride 9 MG/ML Prefilled Syringe;10 MILLILITER Q12HR Quantity:1 Marcos Lazcano Start:13-Dec-2023 Status:Discontinued Comments:[id number] Administration Instructions:flush every shift and before after each IVmedication is administered acetaZOLAMIDE 250 MG Oral Tablet;500 MILLIGRAM BID Quantity:2 Nuria Martinez MD Start:13-Dec-2023 Status:Discontinued Comments:[id number] topiramate 25 MG Oral Tablet [Topamax];25 MILLIGRAM BEDTIME Quantity:1 Nuria Martinez MD Start:13-Dec-2023 Status:Discontinued Comments:[id number] Administration Instructions:DO NOT CRUSH, CUT OR CHEW doxazosin 1 MG Oral Tablet;2 MILLIGRAM BID Quantity:2 Nuria Martinez MD Start:13-Dec-2023 Status:Discontinued Comments:[id number] atorvastatin 40 MG Oral Tabl et [Lipitor];80 MILLIGRAM BEDTIME Quantity:2 Nuria Martinez MD Start:13-Dec-2023 Status:Discontinued Comments:[id number] folic acid 1 MG Oral Tablet; 1 MILLIGRAM BID Quantity:1 Nuria Martinez MD Start:13-Dec-2023 Status:Discontinued Comments:[id number] furosemide 20 MG Oral Tablet ;20 MILLIGRAM DAILY Quantity:1 Nuria Martinez MD Start:13-Dec-2023 Status:Discontinued Comments:[id number] aspirin 325 MG Oral Tablet;3 25 MILLIGRAM DAILY Quantity:1 Nuria Martinez MD Start:13-Dec-2023 Status:Discontinued Comments:[id number] amLODIPine 5 MG Oral Tablet [Norvasc];10 MILLIGRAM DAILY Quantity:2 Nuria Martinez MD Start:13-Dec-2023 Status:Discontinued Comments:[id number] 24 HR isosorbide mononitrate 60 MG Extended Release Oral Tablet [Imdur];60 MILLIGRAM DAILY Quantity:1 Nuria Martinez MD Start:13-Dec-2023 Status:Discontinued Comments:[id number] Administration Instructions:DO NOT CRUSH CUT OR CHEW losartan potassium 25 MG Ora l Tablet [Cozaar];25 MILLIGRAM DAILY Quantity:1 Nuria Martinez MD Start:13-Dec-2023 Status:Discontinued Comments:[id number] ezetimibe 10 MG Oral Tablet [Zetia];10 MILLIGRAM DAILY Quantity:1 Nuria Martinez MD Start:13-Dec-2023 Status:Discontinued Comments:[id number] carvedilol 25 MG Oral Tablet [Coreg];25 MILLIGRAM BID MEALS Quantity:1 Nuria Martinez MD Start:13-Dec-2023 Status:Discontinued Comments:[id number] Administration Instructions:TAKE WITH FOOD clopidogrel 75 MG Oral Table t [Plavix];75 MILLIGRAM DAILY Quantity:1 Nuria Martinez MD Start:13-Dec-2023 Status:Discontinued Comments:[id number] Albuterol 0.83 MG/ML / Ipratropium [place] 0.17 MG/ML Inhalant Solution;3 MILLILITER RTQ4H PRN Quantity:1 Nuria Martinez MD Start:13-Dec-2023 Status:Discontinued Comments:[id number] 1 ML Sodium Chloride 9 MG/ML Prefilled Syringe;10 MILLILITER ASDIR Quantity:1 Marcos Lazcano DO Start:13-Dec-2023 Status:Discontinued Comments:[id number] Administration Instructions:flush every shift and before after each IVmedication is administered LEVAQUIN;250 MILLIGRAM PO DA VERÓNICA Start:08-Dec-2023 Status:Discontinued Comments:250 MG PO DAILY albuterol 0.833 MG/ML / ipratropium bromide 0.167 MG/ML Inhalation Solution;3 MILLILITER INH RTQ4H PRN Start:08-Dec-2023 Status:Discontinued Comments:3 ML INH RTQ4H PRN As Needed for DYSPNEA folic acid 1 MG Oral Tablet; 1 MILLIGRAM PO BID Start:08-Dec-2023 Status:Discontinued Comments:1 MG PO BID NEPHROCAPS;1 TABLET PO DAILY Start:08-Dec-2023 Status:Discontinued Comments:1 TAB PO DAILY doxazosin 2 MG Oral Tablet [Cardura];2 MILLIGRAM PO BID Start:08-Dec-2023 Comments:2 MG PO BID clopidogrel 75 MG Oral Table t [Plavix];75 MILLIGRAM DAILY Quantity:1 Melanie Grace MD Start:07-Dec-2023 Status:Discontinued Comments:[id number] Administration Instructions:Edit Dr: Lesly Navarro MD Edit Source:[email or web address] CTIVATE: 12/01 1134 REACTIVATE: 12/06 0900 EVENT: aspirin 325 MG Oral Tablet;3 25 MILLIGRAM DAILY Quantity:1 Nuria Martinez MD Start:07-Dec-2023 Status:Discontinued Comments:[id number] 4 ML furosemide 10 MG/ML Injection;40 MILLIGRAM BID 9A 5P Quantity:1 Guzman Mercedes MD Start:03-Dec-2023 Status:Discontinued Comments:[id number] Administration Instructions:EACH 20 MG SLOWLY IV OVER 1-2 MINUTES aspirin 325 MG Oral Tablet;3 25 MILLIGRAM PO DAILY Start:03-Dec-2023 Status:Discontinued Comments:325 MG PO DAILY dextromethorphan hydrobromid e 2 MG/ML / guaiFENesin 20 MG/ML Oral Solution;5 MILLILITER Q4H PRN Quantity:1 Nuria Martinez MD Start:01-Dec-2023 Status:Discontinued Comments:[id number] Administration Instructions:GUAIFENESIN/DEXTR OMETHORPHAN 100-10 MG/5 ML polyethylene glycol 3350 170 00 MG Powder for Oral Solution [Miralax];34 GRAM BID Quantity:2 Nuria Martinez MD Start:30-Nov-2023 Status:Discontinued Comments:[id number] Administration Instructions:MIX 1 PACK (17 GM) IN 8 OZ. WATER OR JUICE acetaminophen 325 MG Oral Tablet;650 MILLIGRAM Q6H PRN Quantity:2 Nuria Martinez MD Start:30-Nov-2023 Status:Discontinued Comments:[id number] Administration Instructions:MAXIMUM DAILY DOSE OF ACETAMINOPHEN = 4000 MG folic acid 1 MG Oral Tablet; 1 MILLIGRAM BID Quantity:1 Duran Verdin MD Start:27-Nov-2023 Status:Discontinued Comments:[id number] ascorbic acid 60 MG / calciu m pantothenate 10 MG / D-biotin 0.3 MG / folic acid 0.8 MG / niacinamide 20 MG / pyridoxine 10 MG / riboflavin 1.7 MG / thiamine 1.5 MG / vitamin B12 0.006 MG Oral Tablet [Caroline-Arianna];1 TABLET DAILY Quantity:1 Duran Verdin MD Start:27-Nov-2023 Status:Discontinued Comments:[id number] diphenhydrAMINE hydrochlorid e 25 MG Oral Tablet [Benadryl];25 MILLIGRAM BEDTIME PRN Quantity:1 Nuria Martinez MD Start:26-Nov-2023 Status:Discontinued Comments:[id number] doxazosin 1 MG Oral Tablet;2 MILLIGRAM BID Quantity:2 Nuria Martinez MD Start:26-Nov-2023 Status:Discontinued Comments:[id number] 1 ML epoetin eh-epbx [id number] UNT/ML Injection [Retacrit];91097 UNIT DIALYSIS-DOSE DURING Quantity:2 Jalen Barcenas MD Start:26-Nov-2023 Status:Discontinued Comments:[id number] Administration Instructions:IV WITH DIALYSISPER P T, HOLD IF HGB > 10HGB = 8 REFRIGERATE pantoprazole 40 MG Delayed Release Oral Tablet [Protonix];40 MILLIGRAM DAILY@0600 Quantity:1 Nuria Martinez MD Start:25-Nov-2023 Status:Discontinued Comments:[id number] Administration Instructions:DO NOT CRUSH, CUT OR CHEW topiramate 25 MG Oral Tablet [Topamax];25 MILLIGRAM BEDTIME Quantity:1 Nuria Martinez MD Start:24-Nov-2023 Status:Discontinued Comments:[id number] Administration Instructions:DO NOT CRUSH, CUT OR CHEW atorvastatin 40 MG Oral Tabl et [Lipitor];80 MILLIGRAM BEDTIME Quantity:2 Nuria Martinez MD Start:24-Nov-2023 Status:Discontinued Comments:[id number] Albuterol 0.83 MG/ML / Ipratropium [place] 0.17 MG/ML Inhalant Solution;3 MILLILITER RTQ4H PRN Quantity:1 Nuria Martinez MD Start:24-Nov-2023 Status:Discontinued Comments:[id number] aspirin 325 MG Oral Tablet;3 25 MILLIGRAM DAILY Quantity:1 Nuria Martinez MD Start:24-Nov-2023 Status:Discontinued Comments:[id number] ezetimibe 10 MG Oral Tablet [Zetia];10 MILLIGRAM DAILY Quantity:1 Nuria Martinez MD Start:24-Nov-2023 Status:Discontinued Comments:[id number] amLODIPine 5 MG Oral Tablet [Norvasc];10 MILLIGRAM DAILY Quantity:2 Nuria Martinez MD Start:24-Nov-2023 Status:Discontinued Comments:[id number] 24 HR isosorbide mononitrate 60 MG Extended Release Oral Tablet [Imdur];60 MILLIGRAM DAILY Quantity:1 Nuria Martinez MD Start:24-Nov-2023 Status:Discontinued Comments:[id number] Administration Instructions:DO NOT CRUSH CUT OR CHEW acetaZOLAMIDE 250 MG Oral Tablet;500 MILLIGRAM BID Quantity:2 Nuria Martinez MD Start:24-Nov-2023 Status:Discontinued Comments:[id number] doxazosin 1 MG Oral Tablet;2 MILLIGRAM DAILY Quantity:2 Nuria Martinez MD Start:24-Nov-2023 Status:Discontinued Comments:[id number] clopidogrel 75 MG Oral Table t [Plavix];75 MILLIGRAM DAILY Quantity:1 Nuria Martinez MD Start:24-Nov-2023 Status:Discontinued Comments:[id number] furosemide 20 MG Oral Tablet ;20 MILLIGRAM DAILY Quantity:1 Nuria Martinez MD Start:24-Nov-2023 Status:Discontinued Comments:[id number] carvedilol 25 MG Oral Tablet [Coreg];25 MILLIGRAM BID MEALS Quantity:1 Nuria Martinez MD Start:24-Nov-2023 Status:Discontinued Comments:[id number] Administration Instructions:TAKE WITH FOOD levothyroxine sodium 0.075 M G Oral Tablet [Synthroid];75 MICROGRAM 0630 Quantity:1 Nuria Martinez MD Start:24-Nov-2023 Status:Discontinued losartan potassium 25 MG Ora l Tablet [Cozaar];25 MILLIGRAM BEDTIME Quantity:1 Nuria Martinez MD Start:24-Nov-2023 Status:Discontinued Comments:[id number] hydrALAZINE hydrochloride 25 MG Oral Tablet;75 MILLIGRAM Q6HR Quantity:3 Nuria Martinez MD Start:24-Nov-2023 Status:Discontinued Comments:[id number] Administration Instructions: antihypertensive equiv. to Apresoline < >< >< >Caution, Look Alike Sound Alike< >< >< > acetaminophen 325 MG / oxyCO DONE hydrochloride 10 MG Oral Tablet;1 TABLET Q6H PRN Quantity:1 Nuria Martinez MD Start:24-Nov-2023 Status:Discontinued Comments:[id number] dorzolamide 20 MG/ML Ophthal christo Solution;1 DROP EACH EYE BID Start:23-Nov-2023 Status:Discontinued Comments:1 DROP EACH EYE BID hydrALAZINE hydrochloride 50 MG Oral Tablet;75 MILLIGRAM PO Q6HR Start:23-Nov-2023 Comments:75 MG PO Q6HR losartan potassium 25 MG Ora l Tablet [Cozaar];25 MILLIGRAM PO DAILY Start:23-Nov-2023 Status:Discontinued Comments:25 MG PO DAILY latanoprost 0.05 MG/ML Ophthalmic Solution;1 DROP EACH EYE BEDTIME Start:23-Nov-2023 Status:Discontinued Comments:1 DROP EACH EYE BEDTIME *Med List Information;1 EACH MISC .CANCEL AT DISCHARGE Start:23-Nov-2023 Comments:1 EA MISC .CANCEL AT DISCHARGE furosemide 20 MG Oral Tablet ;20 MILLIGRAM PO DAILY Start:23-Nov-2023 Status:Discontinued Comments:20 MG PO DAILY cholecalciferol 1.25 MG Oral Capsule;56493 UNITS PO Q14D Start:23-Nov-2023 Status:Discontinued Comments:32978 UNITS PO Q14D sodium chloride 9 MG/ML Injectable Solution;Provider Administration Instructions:* PACU order, D/C after transfer * Ron KUMAR Start:18-Jul-2023 Status:Discontinued Comments:Provider Administration Instructions:* PACU order, D/C after transfer * calcium chloride 0.2 MG/ML / potassium chloride 0.3 MG/ML / sodium chloride 6 MG/ML / sodium lactate 3.1 MG/ML Injectable Solution;Provider Administration Instructions:* PACU order, D/C after transfer * Yaya Urbina CRNA Start:18-Jul-2023 Status:Discontinued Comments:Provider Administration Instructions:* PACU order, D/C after transfer * 1 ML hydrALAZINE hydrochlori de 20 MG/ML Injection;Provider Administration Instructions: antihypertensive equiv. to Apresoline < >< >< >Caution, Look Alike Sound Alike< >< >< > Quantity:1 Nely Calderon MD Start:18-Jul-2023 Status:Discontinued Comments:Provider Administration Instructions: antihypertensive equiv. to Apresoline < >< >< >Caution, Look Alike Sound Alike< >< >< > lidocaine hydrochloride 10 M G/ML Injectable Solution Quantity:1 Nely Calderon MD Start:18-Jul-2023 Status:Discontinued papaverine hydrochloride 30 MG/ML Injectable Solution Quantity:1 Nely [place] G Start:18-Jul-2023 5 ML phenylephrine hydrochlo ride 0.1 MG/ML Injection [Biorphen] Quantity:1 Nely Calderon MD Start:18-Jul-2023 Status:Discontinued midazolam 1 MG/ML Injectable Solution Quantity:1 Nely Calderon MD Start:18-Jul-2023 Status:Discontinued lidocaine hydrochloride 10 M G/ML Injectable Solution Quantity:1 Nely Calderon MD Start:18-Jul-2023 Status:Discontinued Heparin sodium 1000 UNT/ML Injectable Solution Quantity:1 Nely Calderon MD Start:18-Jul-2023 Status:Discontinued Heparin sodium 5000 UNT/ML Injectable Solution Quantity:1 Nely Calderon MD Start:18-Jul-2023 hydrALAZINE hydrochloride 25 MG Oral Tablet;25 MILLIGRAM PO TID Start:12-Jul-2023 Status:Discontinued Comments:25 MG PO TID As Needed for ASDIR topiramate 25 MG Oral Tablet ;25 MILLIGRAM PO BEDTIME Start:12-Jul-2023 Status:Discontinued Comments:25 MG PO BEDTIME carvedilol 25 MG Oral Tablet [Coreg];25 MILLIGRAM PO BID MEALS Start:07-Jun-2023 Status:Discontinued Comments:25 MG PO BID MEALS amLODIPine 10 MG Oral Tablet ;10 MILLIGRAM PO DAILY Start:07-Jun-2023 Status:Discontinued Comments:10 MG PO DAILY hydrALAZINE hydrochloride 10 0 MG Oral Tablet;75 MILLIGRAM PO QID Start:07-Jun-2023 Status:Discontinued Comments:75 MG PO QID doxazosin 2 MG Oral Tablet [Cardura];2 MILLIGRAM PO DAILY Start:07-Jun-2023 Status:Discontinued Comments:2 MG PO DAILY acetaminophen 325 MG / oxyCO DONE hydrochloride 10 MG Oral Tablet [Percocet];1 TABLET PO Q6H PRN Start:04-Jun-2023 Comments:1 TAB PO Q6H PRN As Needed for PAIN SCALE 7-10 sucroferric oxyhydroxide 500 MG Chewable Tablet [Velphoro];500 MILLIGRAM CHEW TID MEALS Start:04-Jun-2023 Status:Discontinued Comments:500 MG CHEW TID MEALS levothyroxine sodium 0.075 M G Oral Tablet [Synthroid];75 MICROGRAM PO DAILY Start:31-May-2023 Comments:75 MCG PO DAILY 24 HR isosorbide mononitrate 60 MG Extended Release Oral Tablet;60 MILLIGRAM PO DAILY Start:31-May-2023 Comments:60 MG PO DAILY ROXICODONE;10 MILLIGRAM PO Q 6H PRN Start:31-May-2023 Status:Discontinued Comments:10 MG PO Q6H PRN As Needed for Acute Pain (3 Day) sucroferric oxyhydroxide 500 MG Chewable Tablet [Velphoro];500 MILLIGRAM CHEW TID MEALS Start:31-May-2023 Status:Discontinued Comments:500 MG CHEW TID MEALS carvedilol 3.125 MG Oral Tablet;3.125 MILLIGRAM PO BID MEALS Start:31-May-2023 Status:Discontinued Comments:3.125 MG PO BID MEALS ondansetron 8 MG Oral Tablet ;8 MILLIGRAM PO Q8H PRN Start:31-May-2023 Status:Discontinued Comments:8 MG PO Q8H PRN As Needed for NAUSEA AND VOMITING nitroglycerin 0.4 MG Subling ual Tablet [Nitrostat];0.4 MILLIGRAM SUBLINGUAL Q5M PRN Start:31-May-2023 Status:Discontinued Comments:0.4 MG SL Q5M PRN As Needed for CP *Med List Information;1 EACH MISC .CANCEL AT DISCHARGE Start:31-May-2023 Status:Discontinued Comments:1 EA MISC .CANCEL AT DISCHARGE glimepiride 2 MG Oral Tablet [Amaryl];2 MILLIGRAM PO C BK Start:31-May-2023 Status:Discontinued Comments:2 MG PO C BK aspirin 325 MG Oral Tablet;3 25 MILLIGRAM PO DAILY Start:31-May-2023 Status:Discontinued Comments:325 MG PO DAILY atorvastatin 80 MG Oral Tabl et [Lipitor];80 MILLIGRAM PO DAILY Start:31-May-2023 Comments:80 MG PO DAILY amLODIPine 5 MG Oral Tablet; 5 MILLIGRAM PO DAILY Start:31-May-2023 Status:Discontinued Comments:5 MG PO DAILY hydrALAZINE hydrochloride 50 MG Oral Tablet;50 MILLIGRAM PO Q6H Start:31-May-2023 Status:Discontinued Comments:50 MG PO Q6H aspirin 81 MG Chewable Table t;81 MILLIGRAM DAILY Quantity:1 Ilana Esteban MD Start:07-Dec-2022 Status:Discontinued Comments:[id number] 1 ML Sodium Chloride 9 MG/ML Prefilled Syringe;10 MILLILITER Q12HR Quantity:1 Tina Johnson DO Start:07-Dec-2022 Status:Discontinued Comments:[id number] Administration Instructions:flush every shift and before after each IVmedication is administered acetaminophen 325 MG Oral Tablet;650 MILLIGRAM Q8H PRN Quantity:2 Ilana Esteban MD Start:06-Dec-2022 Status:Discontinued Comments:[id number] Administration Instructions:MAXIMUM DAILY DOSE OF ACETAMINOPHEN = 4000 MG ondansetron 2 MG/ML Injectab le Solution [Zofran];4 MILLIGRAM Q6H PRN Quantity:1 Ilana Esteban MD Start:06-Dec-2022 Status:Discontinued Comments:[id number] Administration Instructions:4 MG dose may be given IV push over 2 MINUTESDoses > 4 mg: Use 50 mL D5W or 0.9% NaCl infuse over 15 minutes nitroglycerin 0.4 MG Subling ual Tablet;0.4 MILLIGRAM Q5M PRN Quantity:1 Ilana Esteban MD Start:06-Dec-2022 Status:Discontinued Comments:[id number] Administration Instructions:MAY GIVE Q5 MIN X 3 PRN CHEST PAIN 1 ML Sodium Chloride 9 MG/ML Prefilled Syringe;10 MILLILITER ASDIR Quantity:1 Tina Johnson DO Start:06-Dec-2022 Status:Discontinued Comments:[id number] Administration Instructions:flush every shift and before after each IVmedication is administered 1 ML Sodium Chloride 9 MG/ML Prefilled Syringe;10 MILLILITER INTRAVEN. Q12HR Quantity:1 Darci Montes MD Start:05-Oct-2022 Status:Discontinued Comments:[id number] Administration Instructions:flush every shift and before after each IVmedication is administered 1 ML Sodium Chloride 9 MG/ML Prefilled Syringe;10 MILLILITER INTRAVEN. ASDIR Quantity:1 Darci Montes MD Start:05-Oct-2022 Status:Discontinued Comments:[id number] Administration Instructions:flush every shift and before after each IVmedication is administered 1 ML Sodium Chloride 9 MG/ML Prefilled Syringe;10 MILLILITER INTRAVEN. Q12HR Quantity:1 Nely Calderon Start:03-Mar-2022 Status:Discontinued Comments:[id number] Administration Instructions:flush every shift and before after each IVmedication is administered midazolam 1 MG/ML Injectable Solution Quantity:1 Nely Calderon Start:03-Mar-2022 Status:Discontinued 2 ML fentaNYL 0.05 MG/ML Injection Quantity:1 Nely Calderon Start:03-Mar-2022 ceFAZolin 1000 MG Injection Quantity:1 Nely Calderon Start:03-Mar-2022 Status:Discontinued 2 ML dexmedeTOMIDine 0.1 MG/ ML Injection [Precedex] Quantity:1 Nely Calderon Start:03-Mar-2022 Status:Discontinued 1 ML Sodium Chloride 9 MG/ML Prefilled Syringe;10 MILLILITER INTRAVEN. ASDIR Quantity:1 Nely Calderon Start:03-Mar-2022 Status:Discontinued Comments:[id number] Administration Instructions:flush every shift and before after each IVmedication is administered LBGV4MGQ4;0.5 MILLIGRAM INTRAVEN. Q5M PRN Quantity:1 Faiza Shabazz R4 DO Start:03-Mar-2022 Status:Discontinued Comments:[id number] Administration Instructions:* PACU * Maximum total dose of 2 milligrams* PACU order, D/C after transfer * calcium chloride 0.2 MG/ML / potassium chloride 0.3 MG/ML / sodium chloride 6 MG/ML / sodium lactate 3.1 MG/ML Injectable Solution;Provider Administration Instructions:* PACU order, D/C after transfer * Kendall Mele R4 DO Start:03-Mar-2022 Status:Discontinued Comments:Provider Administration Instructions:* PACU order, D/C after transfer * 1 ML ePHEDrine sulfate 50 MG /ML Injection;Provider Administration Instructions:< >< >< >Caution, Look Alike Sound Alike< >< >< > Quantity:1 Start:03-Mar-2022 Status:Discontinued Comments:Provider Administration Instructions:< >< >< >Caution, Look Alike Sound Alike< >< >< > 5 ML phenylephrine hydrochlo ride 0.1 MG/ML Injection [Biorphen] Quantity:1 Start:03-Mar-2022 Status:Discontinued midazolam 1 MG/ML Injectable Solution Quantity:1 Start:03-Mar-2022 Status:Discontinued 2 ML fentaNYL 0.05 MG/ML Injection Quantity:1 Start:03-Mar-2022 papaverine hydrochloride 30 MG/ML Injectable Solution Quantity:1 Start:03-Mar-2022 Status:Discontinued Heparin sodium 5000 UNT/ML Injectable Solution Quantity: Start:03-Mar-2022 lidocaine hydrochloride 10 M G/ML Injectable Solution Quantity:1 Start:03-Mar-2022 midazolam 1 MG/ML Injectable Solution Quantity:1 Willy Gaines MD Start:26-Feb-2022 2 ML fentaNYL 0.05 MG/ML Injection Quantity:1 Willy Gaines MD Start:26-Feb-2022 Status:Discontinued Heparin sodium 2 UNT/ML Injectable Solution Quantity:1 Willy Gaines MD Start:26-Feb-2022 Status:Discontinued 2 ML fentaNYL 0.05 MG/ML Injection;100 MICROGRAM INTRAVEN. PROCEDURE Quantity:1 Willy Gaines MD Start:26-Feb-2022 Status:Discontinued Comments:[id number] midazolam 1 MG/ML Injectable Solution;2 MILLIGRAM INTRAVEN. PROCEDURE Quantity:1 Willy Gaines MD Start:26-Feb-2022 Status:Discontinued Comments:[id number] 24 HR buPROPion hydrochlorid e 300 MG Extended Release Oral Tablet;300 MILLIGRAM PO DAILY Start:25-Feb-2022 Status:Discontinued Comments:300 MG PO DAILY cyclobenzaprine hydrochlorid e 5 MG Oral Tablet;5 MILLIGRAM PO TID Start:28-Apr-2021 Status:Discontinued Comments:5 MG PO TID Heparin sodium 1000 UNT/ML Injectable Solution Quantity:1 Phoenix Esteban MD Start:19-Mar-2021 Status:Discontinued Heparin sodium 1000 UNT/ML Injectable Solution Quantity:1 Phoenix Esteban MD Start:19-Mar-2021 Status:Discontinued 1 ML ePHEDrine sulfate 50 MG /ML Injection;Provider Administration Instructions:< >< >< >Caution, Look Alike Sound Alike< >< >< > Quantity:1 Phoenix Esteban MD Start:19-Mar-2021 Status:Discontinued Comments:Provider Administration Instructions:< >< >< >Caution, Look Alike Sound Alike< >< >< > 2 ML fentaNYL 0.05 MG/ML Injection Quantity:1 Phoenix Esteban MD Start:19-Mar-2021 Status:Discontinued calcium chloride 0.2 MG/ML / potassium chloride 0.3 MG/ML / sodium chloride 6 MG/ML / sodium lactate 3.1 MG/ML Injectable Solution;Provider Administration Instructions:* PACU order, D/C after transfer * Natalia Platt MD Start:19-Mar-2021 Status:Discontinued Comments:Provider Administration Instructions:* PACU order, D/C after transfer * ondansetron 2 MG/ML Injectab le Solution [Zofran];4 MILLIGRAM INTRAVEN. PACU Quantity:1 Natalia Platt MD Start:19-Mar-2021 Status:Discontinued Comments:[id number] Administration Instructions:* PACU * may repeat x 1, for maximum of 8 mg lidocaine hydrochloride 10 M G/ML Injectable Solution Quantity:1 Phoenix Esteban MD Start:19-Mar-2021 Status:Discontinued thrombin eh 1000 UNT/ML Topical Solution [Recothrom] Quantity:1 Phoenix Esteban MD Start:19-Mar-2021 Status:Discontinued Protamine Sulfate (PRISON) 10 M G/ML Injectable Solution Quantity:1 Phoenix Esteban MD Start:19-Mar-2021 Status:Discontinued papaverine hydrochloride 30 MG/ML Injectable Solution Quantity:1 Phoenix Esteban MD Start:19-Mar-2021 Status:Discontinued Heparin sodium 5000 UNT/ML Injectable Solution Quantity:1 Phoenix Esteban MD Start:19-Mar-2021 Status:Discontinued Propofol 10 MG/ML Injectable Suspension [Diprivan] Quantity:1 Phoenix Esteban MD Start:19-Mar-2021 Status:Discontinued water 1000 MG/ML Injectable Solution Quantity:1 Phoenix Esteban MD Start:19-Mar-2021 Status:Discontinued phenylephrine hydrochloride 10 MG/ML Injectable Solution Quantity:1 Phoenix Esteban MD Start:19-Mar-2021 Status:Discontinued Ropivacaine hydrochloride 5 MG/ML Injectable Solution [Naropin] Quantity:1 Phoenix Esteban MD Start:19-Mar-2021 Status:Discontinued Glucose 50 MG/ML / Sodium Chloride 0.0769 MEQ/ML Injectable Solution Phoenix Esteban MD Start:19-Mar-2021 Status:Discontinued sodium chloride 9 MG/ML Injectable Solution;[id number] Nely Calderon MD Start:19-Mar-2021 Status:Discontinued Comments:[id number] Glucose 50 MG/ML / Sodium Chloride 0.0769 MEQ/ML Injectable Solution;[id number] Nely Calderon MD Start:19-Mar-2021 Status:Discontinued Comments:[id number] clopidogrel 75 MG Oral Table t;75 MILLIGRAM PO DAILY Start:19-Mar-2021 Status:Discontinued Comments:75 MG PO DAILY CLOP Start:19-Mar-2021 Status:Discontinued Ergocalciferol 1.25 MG Oral Capsule;98361 UNITS PO Q7D Start:18-Mar-2021 Status:Discontinued Comments:78580 UNITS PO Q7D calcium chloride 0.2 MG/ML / potassium chloride 0.3 MG/ML / sodium chloride 6 MG/ML / sodium lactate 3.1 MG/ML Injectable Solution;Provider Administration Instructions:* PACU order, D/C after transfer * Keisha Anderson MD Start:19-Feb-2021 Status:Discontinued Comments:Provider Administration Instructions:* PACU order, D/C after transfer * 2 ML fentaNYL 0.05 MG/ML Injection Quantity:1 Nely Calderon MD Start:19-Feb-2021 Status:Discontinued midazolam 1 MG/ML Injectable Solution Quantity:1 Nely Calderon MD Start:19-Feb-2021 Status:Discontinued Ropivacaine hydrochloride 5 MG/ML Injectable Solution [Naropin] Quantity:1 Nely Calderon MD Start:19-Feb-2021 Status:Discontinued sodium chloride 9 MG/ML Injectable Solution Quantity:1 Nely Calderon MD Start:19-Feb-2021 Status:Discontinued 1 ML ePHEDrine sulfate 50 MG /ML Injection;Provider Administration Instructions:< >< >< >Caution, Look Alike Sound Alike< >< >< > Quantity:1 Nely Calderon MD Start:19-Feb-2021 Status:Discontinued Comments:Provider Administration Instructions:< >< >< >Caution, Look Alike Sound Alike< >< >< > phenylephrine hydrochloride 10 MG/ML Injectable Solution Quantity:1 Nely Calderon MD Start:19-Feb-2021 Status:Discontinued Heparin sodium 5000 UNT/ML Injectable Solution Quantity:1 Nely Calderon MD Start:19-Feb-2021 Status:Discontinued papaverine hydrochloride 30 MG/ML Injectable Solution Quantity:1 Nely Calderon MD Start:19-Feb-2021 Status:Discontinued lidocaine hydrochloride 10 M G/ML Injectable Solution Quantity:1 Nely Calderon MD Start:19-Feb-2021 Status:Discontinued ceFAZolin 2000 MG Injection;[id number] Nely Calderon Start:19-Feb-2021 Status:Discontinued Comments:[id number] Glucose 50 MG/ML / Sodium Chloride 0.0769 MEQ/ML Injectable Solution;[id number] Nely Calderon Start:19-Feb-2021 Status:Discontinued Comments:[id number] cholecalciferol 0.01 MG Oral Tablet;400 UNITS PO DAILY Start:19-Feb-2021 Status:Discontinued Comments:400 UNITS PO DAILY Propofol 10 MG/ML Injectable Suspension [Diprivan] Quantity:1 Darrian Anderson MD Start:17-Dec-2020 Status:Discontinued Heparin sodium 1000 UNT/ML Injectable Solution Quantity:1 Darrian Anderson MD Start:17-Dec-2020 Status:Discontinued phenylephrine hydrochloride 10 MG/ML Injectable Solution Quantity:1 Darrian Anderson MD Start:17-Dec-2020 Status:Discontinued calcium chloride 0.2 MG/ML / potassium chloride 0.3 MG/ML / sodium chloride 6 MG/ML / sodium lactate 3.1 MG/ML Injectable Solution;Provider Administration Instructions:* PACU order, D/C after transfer * Darrian Anderson MD Start:17-Dec-2020 Status:Discontinued Comments:Provider Administration Instructions:* PACU order, D/C after transfer * Metoclopramide 5 MG/ML Injectable Solution [Reglan];10 MILLIGRAM INTRAVEN. PACU Quantity:1 Darrian Anderson MD Start:17-Dec-2020 Status:Discontinued Comments:[id number] Administration Instructions:* PACU * one time only lidocaine hydrochloride 20 M G/ML Injectable Solution Quantity:1 Nely Calderon Start:17-Dec-2020 Status:Discontinued ondansetron 2 MG/ML Injectab le Solution [Zofran];Provider Administration Instructions:4 MG dose may be given IV push over 2 MINUTESDoses > 4 mg: Use 50 mL D5W or 0.9% NaCl infuse over 15 minutes Quantity:1 Nely Calderon Start:17-Dec-2020 Status:Discontinued Comments:Provider Administration Instructions:4 MG dose may be given IV push over 2 MINUTESDoses > 4 mg: Use 50 mL D5W or 0.9% NaCl infuse over 15 minutes Dexamethasone 4 MG/ML Inject able Solution Quantity:1 Nely Calderon Start:17-Dec-2020 Status:Discontinued clindamycin 150 MG/ML Inject able Solution Quantity:1 Nely Calderon Start:17-Dec-2020 Status:Discontinued Propofol 10 MG/ML Injectable Suspension [Diprivan] Quantity:1 Nely Calderon Start:17-Dec-2020 Status:Discontinued midazolam 1 MG/ML Injectable Solution Quantity:1 Nely Calderon Start:17-Dec-2020 Status:Discontinued lidocaine hydrochloride 20 M G/ML Injectable Solution Quantity:1 Zina Hercules MD Start:17-Dec-2020 Status:Discontinued Ropivacaine hydrochloride 5 MG/ML Injectable Solution [Naropin] Quantity:1 Zina Hercules MD Start:17-Dec-2020 Status:Discontinued Heparin sodium 5000 UNT/ML Injectable Solution Quantity:1 Zina Hercules MD Start:17-Dec-2020 Status:Discontinued Protamine Sulfate (PRISON) 10 M G/ML Injectable Solution Quantity:1 Zina Hercules MD Start:17-Dec-2020 Status:Discontinued lidocaine hydrochloride 10 M G/ML Injectable Solution Quantity:1 Zina Hercules MD Start:17-Dec-2020 Status:Discontinued papaverine hydrochloride 30 MG/ML Injectable Solution Quantity:1 Zina Hercules MD Start:17-Dec-2020 Status:Discontinued folic acid 1 MG Oral Tablet; 1 MILLIGRAM ORAL DAILY Quantity:1 Zina Hercules MD Start:15-Dec-2020 Status:Discontinued Comments:[id number] Administration Instructions:IV TO PO CONVERSION BY RX PER P T APPROVED POLICY,12/14,[facility] thiamine 100 MG Oral Tablet; 100 MILLIGRAM ORAL DAILY Quantity:1 Zina Hercules MD Start:15-Dec-2020 Status:Discontinued Comments:[id number] Administration Instructions:IV TO PO CONVERSION BY RX PER P T APPROVED POLICY,12/14,[facility] cefdinir 300 MG Oral Capsule ;300 MILLIGRAM PO Q12HR Start:15-Dec-2020 Status:Discontinued Comments:300 MG PO Q12HR sodium chloride 9 MG/ML Injectable Solution Quantity:1 Zhangron Stacy R4 DO Start:13-Dec-2020 Status:Discontinued ceFAZolin 1000 MG Injection Quantity:1 Rocio Stacy R4 DO Start:13-Dec-2020 Status:Discontinued 1 ML glycopyrrolate 0.2 MG/M L Injection Quantity:1 Zhangron Stacy R4 DO Start:13-Dec-2020 Status:Discontinued ondansetron 2 MG/ML Injectab le Solution [Zofran];4 MILLIGRAM INTRAVEN. PACU Quantity:1 Rocio Stacy R4 DO Start:13-Dec-2020 Status:Discontinued Comments:[id number] Administration Instructions:* PACU * may repeat x 1, for maximum of 8 mg calcium chloride 0.2 MG/ML / potassium chloride 0.3 MG/ML / sodium chloride 6 MG/ML / sodium lactate 3.1 MG/ML Injectable Solution;Provider Administration Instructions:* PACU order, D/C after transfer * Rocio Stacy R4 DO Start:13-Dec-2020 Status:Discontinued Comments:Provider Administration Instructions:* PACU order, D/C after transfer * calcium chloride 0.2 MG/ML / potassium chloride 0.3 MG/ML / sodium chloride 6 MG/ML / sodium lactate 3.1 MG/ML Injectable Solution;Provider Administration Instructions:* PACU order, D/C after transfer * Maite Villar MD Start:13-Dec-2020 Status:Discontinued Comments:Provider Administration Instructions:* PACU order, D/C after transfer * 2 ML fentaNYL 0.05 MG/ML Injection Quantity:1 Zina Hrecules MD Start:13-Dec-2020 Status:Discontinued Propofol 10 MG/ML Injectable Suspension [Diprivan] Quantity:1 Grahamcarli Hercules MD Start:13-Dec-2020 Status:Discontinued midazolam 1 MG/ML Injectable Solution Quantity:1 Grahamcarli Hercules MD Start:13-Dec-2020 Status:Discontinued 1 ML ePHEDrine sulfate 50 MG /ML Injection;Provider Administration Instructions:< >< >< >Caution, Look Alike Sound Alike< >< >< > Quantity:1 Grahamcarli Hercules MD Start:13-Dec-2020 Status:Discontinued Comments:Provider Administration Instructions:< >< >< >Caution, Look Alike Sound Alike< >< >< > lidocaine hydrochloride 10 M G/ML Injectable Solution Quantity:1 Zina Hercules MD Start:13-Dec-2020 Status:Discontinued Heparin sodium 5000 UNT/ML Injectable Solution Quantity:1 Grahamcarli Hercules MD Start:13-Dec-2020 Status:Discontinued sodium chloride 9 MG/ML Injectable Solution;[id number] Administration Instructions: PROTECT FROM LIGHT IV - 100 MG OR FRACTION THEREOF OVER 5 MINIVPB - IN 50 ML NS OVER 60 MIN Zina Hercules MD Start:12-Dec-2020 Status:Discontinued Comments:[id number] Administration Instructions: PROTECT FROM LIGHT IV - 100 MG OR FRACTION THEREOF OVER 5 MINIVPB - IN 50 ML NS OVER 60 MIN sodium chloride 9 MG/ML Injectable Solution;[id number] Administration Instructions:1 MG/0.2 ML Zina Hercules MD Start:12-Dec-2020 Status:Discontinued Comments:[id number] Administration Instructions:1 MG/0.2 ML LORazepam 1 MG Oral Tablet;1 MILLIGRAM ORAL Q6H PRN Quantity:1 Grahamcarli Hercules MD Start:12-Dec-2020 Status:Discontinued Comments:[id number] famotidine 20 MG Oral Tablet [Pepcid];20 MILLIGRAM ORAL DAILY Quantity:1 Grahamcarli Hercules MD Start:12-Dec-2020 Status:Discontinued Comments:[id number] Administration Instructions:IV TO PO CONVERSION BY RX PER P T APPROVED POLICY 24 HR nicotine 0.583 MG/HR Transdermal System;14 MILLIGRAM TRANSDERMAL DAILY Quantity:1 Barry Kolb DO Start:11-Dec-2020 Status:Discontinued Comments:[id number] Administration Instructions:PLEASE REMOVE OLD PATCH PRIOR TO PLACING NEWPATCH. IF PATIENT HAS SLEEP DISTURBANCES,APPLY IN THE MORNING AND REMOVE AT BEDTIME. Glucose 50 MG/ML / Sodium Chloride 0.0769 MEQ/ML Injectable Solution Carolina Sibley MD Start:11-Dec-2020 Status:Discontinued amLODIPine 5 MG Oral Tablet [Norvasc];10 MILLIGRAM ORAL DAILY Quantity:2 Zina Hercules MD Start:11-Dec-2020 Status:Discontinued Comments:[id number] LANTUS;20 UNIT SUBCUTANEOUS QAM Quantity:1 Zina Hercules MD Start:11-Dec-2020 Status:Discontinued Comments:[id number] 24 HR isosorbide mononitrate 60 MG Extended Release Oral Tablet [Imdur];60 MILLIGRAM ORAL DAILY Quantity:1 Zina Hercules MD Start:11-Dec-2020 Status:Discontinued Comments:[id number] Administration Instructions:DO NOT CRUSH CUT OR CHEW [place] POTASSIUM 50 MG TABLET_LOSA50TA;100 MILLIGRAM ORAL DAILY Quantity:2 Zina Hercules MD Start:11-Dec-2020 Status:Discontinued Comments:[id number] aspirin 325 MG Oral Tablet;3 25 MILLIGRAM ORAL DAILY Quantity:1 Zina Hercules MD Start:11-Dec-2020 Status:Discontinued Comments:[id number] ezetimibe 10 MG Oral Tablet [Zetia];10 MILLIGRAM ORAL DAILY Quantity:1 Zina Hercules MD Start:11-Dec-2020 Status:Discontinued Comments:[id number] polyethylene glycol 3350 170 00 MG Powder for Oral Solution [Miralax];17 GRAM ORAL BID Quantity:1 Kesha Grove MD Start:11-Dec-2020 Status:Discontinued Comments:[id number] Administration Instructions:MIX 1 PACK (17 GM) IN 8 OZ. WATER OR JUICE metOLazone 5 MG Oral Tablet; 10 MILLIGRAM ORAL DAILY Quantity:2 Zina Hercules MD Start:11-Dec-2020 Status:Discontinued Comments:[id number] acetaZOLAMIDE 250 MG Oral Tablet;250 MILLIGRAM ORAL DAILY Quantity:1 Zina Hercules MD Start:11-Dec-2020 Status:Discontinued Comments:[id number] glimepiride 2 MG Oral Tablet [Amaryl];2 MILLIGRAM ORAL BID Quantity:1 Zina Hercules MD Start:11-Dec-2020 Status:Discontinued Comments:[id number] famotidine 10 MG/ML Injectab le Solution;20 MILLIGRAM INTRAVEN. DAILY Quantity:1 Zina Hercules MD Start:11-Dec-2020 Status:Discontinued Comments:[id number] Administration Instructions:DILUTE 20MG WITH 10ML NS PUSH, PUSH TOTALVOLUME OVER 2 MINUTES insulin, regular, human 100 UNT/ML Injectable Solution [HumuLIN R];[id number] Administration Instructions:REGULAR SLIDING SCALE [id number] MG/DL, 0 BKFFZ541-114 MG/DL, 1 KOBJF759-156 MG/DL, 2 [id number] MG/DL, 3 WLLQH593-960 MG/DL, 4 KHPCE197-295 MG/DL, 5 UNITS>= 400, 5 UNITS ANDOBTAIN STAT BS AND CALLRESULTS TO PHYSICIANHIGH ALERT DRUG< >< >< >Caution, Look Alike Sound Alike< >< >< >*DISPOSE OF UNUSED INSULIN IN BLACK BOX* Quantity:0 Zina Hercules MD Start:11-Dec-2020 Status:Discontinued Comments:[id number] Administration Instructions:REGULAR SLIDING SCALE [id number] MG/DL, 0 ECEVD793-727 MG/DL, 1 IZJGL025-749 MG/DL, 2 PRIET286-027 MG/DL, 3 [id number] MG/DL, 4 XJLAR872-090 MG/DL, 5 UNITS>= 400, 5 UNITS ANDOBTAIN STAT BS AND CALLRESULTS TO PHYSICIANHIGH ALERT DRUG< >< >< >Caution, Look Alike Sound Alike< >< >< >*DISPOSE OF UNUSED INSULIN IN BLACK BOX* glucose 4000 MG Chewable Tablet;16 GRAM ORAL ASDIR Quantity:4 Zina Hercules MD Start:11-Dec-2020 Status:Discontinued Comments:[id number] Administration Instructions:CHEW TABLETS THOROUGHLY BEFORE SWALLOWING Albuterol 0.83 MG/ML / Ipratropium [place] 0.17 MG/ML Inhalant Solution;3 MILLILITER INHALATION RTQ4H PRN Quantity:1 Mily Santana MD Start:11-Dec-2020 Status:Discontinued Comments:[id number] levothyroxine sodium 0.05 MG Oral Tablet [Synthroid];50 MICROGRAM ORAL DAILY@0600 Quantity:1 Zina Hercules MD Start:11-Dec-2020 Status:Discontinued Comments:[id number] rosuvastatin calcium 20 MG O ral Tablet;20 MILLIGRAM ORAL BEDTIME Quantity:1 Zina Hercules MD Start:10-Dec-2020 Status:Discontinued Comments:[id number] dorzolamide 20 MG/ML Ophthal christo Solution [Trusopt];1 DROP LEFT EYE BID Quantity:1 Zina Hercules MD Start:10-Dec-2020 Status:Discontinued Comments:[id number] timolol 5 MG/ML Ophthalmic Solution [Betimol];1 DROP LEFT EYE BID Quantity:1 Zina Hercules MD Start:10-Dec-2020 Status:Discontinued Comments:[id number] prednisolone 10 MG/ML Ophtha lmic Suspension;1 DROP EACH EYE BID Quantity:1 Zina Hercules MD Start:10-Dec-2020 Status:Discontinued Comments:[id number] brimonidine tartrate 2 MG/ML Ophthalmic Solution;1 DROP LEFT EYE BID Quantity:1 Zina Hercules MD Start:10-Dec-2020 Status:Discontinued Comments:[id number] acetaminophen 325 MG / HYDROcodone bitartrate 10 MG Oral Tablet [[place]];1 TABLET ORAL Q6H PRN Quantity:1 Zina Hercules MD Start:10-Dec-2020 Status:Discontinued Comments:[id number] Administration Instructions:FOR NORCO AND VICODIN pregabalin 50 MG Oral Capsul e [Lyrica];50 MILLIGRAM ORAL BEDTIME Quantity:1 Zina Hercules MD Start:10-Dec-2020 Status:Discontinued Comments:[id number] bumetanide 1 MG Oral Tablet; 2 MILLIGRAM ORAL BID Quantity:2 Zina Hercules MD Start:10-Dec-2020 Status:Discontinued Comments:[id number] hydrALAZINE hydrochloride 25 MG Oral Tablet;25 MILLIGRAM ORAL BID Quantity:1 Zina Hercules MD Start:10-Dec-2020 Status:Discontinued Comments:[id number] Administration Instructions: antihypertensive equiv. to Apresoline < >< >< >Caution, Look Alike Sound Alike< >< >< > LANTUS;80 UNIT SUBCUTANEOUS BEDTIME Quantity:4 Zina Hercules MD Start:10-Dec-2020 Status:Discontinued Comments:[id number] carvedilol 25 MG Oral Tablet [Coreg];25 MILLIGRAM ORAL BID Quantity:1 Zina Hercules MD Start:10-Dec-2020 Status:Discontinued Comments:[id number] Administration Instructions:TAKE WITH FOOD 1 ML Sodium Chloride 9 MG/ML Prefilled Syringe;10 MILLILITER INTRAVEN. Q12HR Quantity:1 Zina Hercules MD Start:10-Dec-2020 Status:Discontinued Comments:[id number] Administration Instructions:flush every shift and before after each IVmedication is administered 1 ML Sodium Chloride 9 MG/ML Prefilled Syringe;10 MILLILITER INTRAVEN. ASDIR Quantity:1 Zina Hercules MD Start:10-Dec-2020 Status:Discontinued Comments:[id number] Administration Instructions:flush every shift and before after each IVmedication is administered *Med List Information;1 EACH MISC .CANCEL AT DISCHARGE Start:10-Dec-2020 Status:Discontinued Comments:1 EA MISC .CANCEL AT DISCHARGE prednisolone 10 MG/ML Ophtha lmic Suspension [Omnipred];1 DROP EACH EYE BID Start:10-Dec-2020 Status:Discontinued Comments:1 DROP EACH EYE BID acetaZOLAMIDE 250 MG Oral Tablet;500 MILLIGRAM PO BID Start:10-Dec-2020 Comments:500 MG PO BID atropine sulfate 10 MG/ML Ophthalmic Solution;1 DROP EACH EYE TID Start:10-Dec-2020 Status:Discontinued Comments:1 DROP EACH EYE TID levothyroxine sodium 0.05 MG Oral Tablet [Synthroid];50 MICROGRAM ORAL DAILY@0600 Quantity:1 Juve Myers MD Start:28-Oct-2020 Status:Discontinued Comments:[id number] glucose 4000 MG Chewable Tablet;16 GRAM ORAL ASDIR Quantity:4 Juve Myers MD Start:27-Oct-2020 Status:Discontinued Comments:[id number] Administration Instructions:CHEW TABLETS THOROUGHLY BEFORE SWALLOWING LANTUS;20 UNIT SUBCUTANEOUS QAM Quantity:1 Juve Myers MD Start:27-Oct-2020 Status:Discontinued Comments:[id number] aspirin 325 MG Oral Tablet;3 25 MILLIGRAM ORAL DAILY Quantity:1 Juve Myers MD Start:27-Oct-2020 Status:Discontinued Comments:[id number] clopidogrel 75 MG Oral Table t [Plavix];75 MILLIGRAM ORAL DAILY Quantity:1 Juve Myers MD Start:27-Oct-2020 Status:Discontinued Comments:[id number] metOLazone 5 MG Oral Tablet; 10 MILLIGRAM ORAL DAILY Quantity:2 Juve Myers MD Start:27-Oct-2020 Status:Discontinued Comments:[id number] 24 HR isosorbide mononitrate 60 MG Extended Release Oral Tablet [Imdur];60 MILLIGRAM ORAL DAILY Quantity:1 Juve Myers MD Start:27-Oct-2020 Status:Discontinued Comments:[id number] Administration Instructions:DO NOT CRUSH CUT OR CHEW pantoprazole 40 MG Delayed Release Oral Tablet [Protonix];40 MILLIGRAM ORAL DAILY Quantity:1 Juve Myers MD Start:27-Oct-2020 Status:Discontinued Comments:[id number] Administration Instructions:DO NOT CRUSH, CUT OR CHEW amLODIPine 5 MG Oral Tablet [Norvasc];10 MILLIGRAM ORAL DAILY Quantity:2 Juve Myers MD Start:27-Oct-2020 Status:Discontinued Comments:[id number] ezetimibe 10 MG Oral Tablet [Zetia];10 MILLIGRAM ORAL DAILY Quantity:1 Juve Myers MD Start:27-Oct-2020 Status:Discontinued Comments:[id number] cyclobenzaprine hydrochlorid e 10 MG Oral Tablet;10 MILLIGRAM ORAL BID PRN Quantity:1 Juve Myers MD Start:27-Oct-2020 Status:Discontinued Comments:[id number] levothyroxine sodium 0.05 MG Oral Tablet;50 MICROGRAM PO DAILY@0600 Start:27-Oct-2020 Status:Discontinued Comments:50 MCG PO DAILY@0600 1 ML Sodium Chloride 9 MG/ML Prefilled Syringe;10 MILLILITER INTRAVEN. Q12HR Quantity:1 Juve Myers MD Start:26-Oct-2020 Status:Discontinued Comments:[id number] Administration Instructions:flush every shift and before after each IVmedication is administered dorzolamide 20 MG/ML Ophthal christo Solution [Trusopt];1 DROP LEFT EYE BID Quantity:1 Juve Myers MD Start:26-Oct-2020 Status:Discontinued Comments:[id number] brimonidine tartrate 2 MG/ML Ophthalmic Solution;1 DROP LEFT EYE BID Quantity:1 Juve Myers MD Start:26-Oct-2020 Status:Discontinued Comments:[id number] bumetanide 1 MG Oral Tablet; 2 MILLIGRAM ORAL BID Quantity:2 Juve Myers MD Start:26-Oct-2020 Status:Discontinued Comments:[id number] LANTUS;80 UNIT SUBCUTANEOUS BEDTIME Quantity:4 Juve Myers MD Start:26-Oct-2020 Status:Discontinued Comments:[id number] carvedilol 25 MG Oral Tablet [Coreg];25 MILLIGRAM ORAL BID Quantity:1 Juve Myers MD Start:26-Oct-2020 Status:Discontinued Comments:[id number] Administration Instructions:TAKE WITH FOOD rosuvastatin calcium 20 MG O ral Tablet;20 MILLIGRAM ORAL BEDTIME Quantity:1 Juve Myers MD Start:26-Oct-2020 Status:Discontinued Comments:[id number] hydrALAZINE hydrochloride 25 MG Oral Tablet;25 MILLIGRAM ORAL BID Quantity:1 Juve Myers MD Start:26-Oct-2020 Status:Discontinued Comments:[id number] Administration Instructions: antihypertensive equiv. to Apresoline < >< >< >Caution, Look Alike Sound Alike< >< >< > pregabalin 50 MG Oral Capsul e [Lyrica];50 MILLIGRAM ORAL BEDTIME Quantity:1 Juve Myers MD Start:26-Oct-2020 Status:Discontinued Comments:[id number] timolol 5 MG/ML Ophthalmic Solution [Betimol];1 DROP LEFT EYE BID Quantity:1 Juve Myers MD Start:26-Oct-2020 Status:Discontinued Comments:[id number] 1 ML Sodium Chloride 9 MG/ML Prefilled Syringe;10 MILLILITER INTRAVEN. ASDIR Quantity:1 Juve Myers MD Start:26-Oct-2020 Status:Discontinued Comments:[id number] Administration Instructions:flush every shift and before after each IVmedication is administered glimepiride 2 MG Oral Tablet [Amaryl];2 MILLIGRAM PO C BK Start:26-Oct-2020 Status:Discontinued Comments:2 MG PO C BK Doxycycline 100 MG Oral Tablet;100 MILLIGRAM PO BID Start:26-Oct-2020 Status:Discontinued Comments:100 MG PO BID metOLazone 10 MG Oral Tablet ;10 MILLIGRAM PO DAILY Start:26-Oct-2020 Status:Discontinued Comments:10 MG PO DAILY amLODIPine 10 MG Oral Tablet ;10 MILLIGRAM PO DAILY Start:26-Oct-2020 Status:Discontinued Comments:10 MG PO DAILY baclofen 10 MG Oral Tablet;1 0 MILLIGRAM PO DAILY Start:26-Oct-2020 Status:Discontinued Comments:10 MG PO DAILY As Needed for PAIN acetaminophen 325 MG / HYDROcodone bitartrate 10 MG Oral Tablet;1 TABLET PO Q6H PRN Start:26-Oct-2020 Status:Discontinued Comments:1 TAB PO Q6H PRN As Needed for PAIN 7-10 ezetimibe 10 MG Oral Tablet [Zetia];10 MILLIGRAM PO DAILY Start:26-Oct-2020 Comments:10 MG PO DAILY brimonidine tartrate 2 MG/ML Ophthalmic Solution;1 DROP LEFT EYE BID Start:26-Oct-2020 Status:Discontinued Comments:1 DROP LEFT EYE BID *Med List Information;1 EACH MISC .CANCEL AT DISCHARGE Start:26-Oct-2020 Status:Discontinued Comments:1 EA MISC .CANCEL AT DISCHARGE MULTIVITAMIN;1 TABLET PO ARIANNE LY Start:26-Oct-2020 Status:Discontinued Comments:1 TAB PO DAILY dorzolamide 20 MG/ML / Timol ol 5 MG/ML Ophthalmic Solution [Cosopt];1 DROP LEFT EYE BID Start:26-Oct-2020 Status:Discontinued Comments:1 DROP LEFT EYE BID Ergocalciferol 1.25 MG Oral Capsule [Drisdol];04619 UNIT ORAL Fr@0900 Quantity:1 Ana Falcon DO Start:24-Oct-2020 Status:Discontinued Comments:[id number] glucose 4000 MG Chewable Tablet;16 GRAM ORAL ASDIR Quantity:4 Ana Falcon DO Start:18-Oct-2020 Status:Discontinued Comments:[id number] Administration Instructions:CHEW TABLETS THOROUGHLY BEFORE SWALLOWING metOLazone 5 MG Oral Tablet; 10 MILLIGRAM ORAL DAILY Quantity:2 Ana Falcon DO Start:18-Oct-2020 Status:Discontinued Comments:[id number] LOSARTAN POTASSIUM 50 MG TABLET_LOSA50TA;100 MILLIGRAM ORAL DAILY Quantity:2 Ana Falcon DO Start:18-Oct-2020 Status:Discontinued Comments:[id number] clopidogrel 75 MG Oral Table t [Plavix];75 MILLIGRAM ORAL DAILY Quantity:1 Ana Falcon DO Start:18-Oct-2020 Status:Discontinued Comments:[id number] aspirin 325 MG Oral Tablet;3 25 MILLIGRAM ORAL DAILY Quantity:1 Ana Falcon DO Start:18-Oct-2020 Status:Discontinued Comments:[id number] amLODIPine 5 MG Oral Tablet [Norvasc];10 MILLIGRAM ORAL DAILY Quantity:2 Ana Falcon DO Start:18-Oct-2020 Status:Discontinued Comments:[id number] bumetanide 1 MG Oral Tablet; 1 MILLIGRAM ORAL BID 9A 5P Quantity:1 Ana Falcon DO Start:18-Oct-2020 Status:Discontinued Comments:[id number] pantoprazole 40 MG Delayed Release Oral Tablet [Protonix];40 MILLIGRAM ORAL DAILY@0600 Quantity:1 Ana Falcon DO Start:18-Oct-2020 Status:Discontinued Comments:[id number] Administration Instructions:DO NOT CRUSH, CUT OR CHEW traMADol hydrochloride 50 MG Oral Tablet;50 MILLIGRAM ORAL Q6H PRN Quantity:1 Horacio Sibley MD Start:18-Oct-2020 Status:Discontinued Comments:[id number] pregabalin 50 MG Oral Capsul e [Lyrica];50 MILLIGRAM ORAL BEDTIME Quantity:1 Laura Nunez MD Start:17-Oct-2020 Status:Discontinued Comments:[id number] erythromycin 0.005 MG/MG Ophthalmic Ointment;1 APPL LEFT EYE Q4H [place] Quantity:1 Ana Falcon DO Start:17-Oct-2020 Status:Discontinued Comments:[id number] hydrALAZINE hydrochloride 25 MG Oral Tablet;25 MILLIGRAM ORAL BID Quantity:1 Ana Falcon DO Start:17-Oct-2020 Status:Discontinued Comments:[id number] Administration Instructions: antihypertensive equiv. to Apresoline < >< >< >Caution, Look Alike Sound Alike< >< >< > gabapentin 300 MG Oral Capsu le [Neurontin];300 MILLIGRAM ORAL TID Quantity:1 Ana Falcon DO Start:17-Oct-2020 Status:Discontinued Comments:[id number] 24 HR isosorbide mononitrate 60 MG Extended Release Oral Tablet [Imdur];60 MILLIGRAM ORAL BEDTIME Quantity:1 Ana Falcon DO Start:17-Oct-2020 Status:Discontinued Comments:[id number] Administration Instructions:DO NOT CRUSH CUT OR CHEW insulin, regular, human 100 UNT/ML Injectable Solution [HumuLIN R];[id number] Administration Instructions:REGULAR SLIDING SCALE CGHNFLEK30-525 MG/DL, 0 NVOAC307-993 MG/DL, 1 FCAQE499-181 MG/DL, 2 FXDWH340-809 MG/DL, 3 EJLLP733-624 MG/DL, 4 BOLNQ962-471 MG/DL, 5 UNITS>= 400, 5 UNITS ANDOBTAIN STAT BS AND CALLRESULTS TO PHYSICIANHIGH ALERT DRUG< >< >< >Caution, Look Alike Sound Alike< >< >< >*DISPOSE OF UNUSED INSULIN IN BLACK BOX* Quantity:0 Ana Falcon DO Start:17-Oct-2020 Status:Discontinued Comments:[id number] Administration Instructions:REGULAR SLIDING SCALE IZNMLGEG34-071 MG/DL, 0 GJXOC514-372 MG/DL, 1 LYORD940-547 MG/DL, 2 BCPAS758-005 MG/DL, 3 ULQNV590-723 MG/DL, 4 EDCST691-641 MG/DL, 5 UNITS>= 400, 5 UNITS ANDOBTAIN STAT BS AND CALLRESULTS TO PHYSICIANHIGH ALERT DRUG< >< >< >Caution, Look Alike Sound Alike< >< >< >*DISPOSE OF UNUSED INSULIN IN BLACK BOX* rosuvastatin calcium 20 MG O ral Tablet;20 MILLIGRAM ORAL BEDTIME Quantity:1 Ana Falcon DO Start:17-Oct-2020 Status:Discontinued Comments:[id number] dicyclomine hydrochloride 10 MG Oral Capsule;20 MILLIGRAM ORAL Q8H PRN Quantity:2 Ana Falcon DO Start:17-Oct-2020 Status:Discontinued Comments:[id number] Administration Instructions:BENTYL 1 ML Sodium Chloride 9 MG/ML Prefilled Syringe;10 MILLILITER INTRAVEN. Q12HR Quantity:1 Nely Steven Calderon MD Start:17-Oct-2020 Status:Discontinued Comments:[id number] Administration Instructions:flush every shift and before after each IVmedication is administered 1 ML Sodium Chloride 9 MG/ML Prefilled Syringe;10 MILLILITER INTRAVEN. ASDIR Quantity:1 Nely Steven Calderon MD Start:17-Oct-2020 Status:Discontinued Comments:[id number] Administration Instructions:flush every shift and before after each IVmedication is administered ondansetron 2 MG/ML Injectab le Solution [Zofran];Provider Administration Instructions:4 MG dose may be given IV push over 2 MINUTESDoses > 4 mg: Use 50 mL D5W or 0.9% NaCl infuse over 15 minutes Quantity:1 EVELYN Start:17-Oct-2020 Status:Discontinued Comments:Provider Administration Instructions:4 MG dose may be given IV push over 2 MINUTESDoses > 4 mg: Use 50 mL D5W or 0.9% NaCl infuse over 15 minutes calcium chloride 0.2 MG/ML / potassium chloride 0.3 MG/ML / sodium chloride 6 MG/ML / sodium lactate 3.1 MG/ML Injectable Solution;Provider Administration Instructions:* PACU order, D/C after transfer * [facility] Start:17-Oct-2020 Status:Discontinued Comments:Provider Administration Instructions:* PACU order, D/C after transfer * ondansetron 2 MG/ML Injectab le Solution [Zofran];4 MILLIGRAM INTRAVEN. PACU Quantity:1 EVELYN Start:17-Oct-2020 Status:Discontinued Comments:[id number] Administration Instructions:* PACU * may repeat x 1, for maximum of 8 mg Propofol 10 MG/ML Injectable Suspension [Diprivan] Quantity:1 Issa Esteban MD Start:17-Oct-2020 Status:Discontinued Propofol 10 MG/ML Injectable Suspension [Diprivan] Quantity:1 Issa Esteban MD Start:17-Oct-2020 Status:Discontinued Succinylcholine 20 MG/ML Injectable Solution [Quelicin];Provider Administration Instructions: WARNING: CAUSES RESPIRATORY ARREST PATIENT MUST BEVENTILATED; HIGH-ALERT DRUG Quantity:1 Issa Esteban MD Start:17-Oct-2020 Status:Discontinued Comments:Provider Administration Instructions: WARNING: CAUSES RESPIRATORY ARREST PATIENT MUST BEVENTILATED; HIGH-ALERT DRUG 2 ML fentaNYL 0.05 MG/ML Injection Quantity:1 Issa Esteban MD Start:17-Oct-2020 Status:Discontinued famotidine 10 MG/ML Injectab le Solution;Provider Administration Instructions:DILUTE 20MG WITH 10ML NS PUSH, PUSH TOTALVOLUME OVER 2 MINUTES Quantity:1 Issa Esteban MD Start:17-Oct-2020 Status:Discontinued Comments:Provider Administration Instructions:DILUTE 20MG WITH 10ML NS PUSH, PUSH TOTALVOLUME OVER 2 MINUTES lidocaine hydrochloride 20 M G/ML Injectable Solution Quantity:1 Issa Esteban MD Start:17-Oct-2020 Status:Discontinued lidocaine hydrochloride 10 M G/ML Injectable Solution Quantity:1 Nely Calderon MD Start:17-Oct-2020 Status:Discontinued sodium chloride 9 MG/ML Injectable Solution;[id number] Administration Instructions:* HOLD if VANCO TROUGH level > 20 ug/mL *Call Pharmacy at *[phone] Nely Calderon MD Start:17-Oct-2020 Status:Discontinued Comments:[id number] Administration Instructions:* HOLD if VANCO TROUGH level > 20 ug/mL *Call Pharmacy at *[phone] pregabalin 50 MG Oral Capsul e;50 MILLIGRAM PO BID Start:17-Oct-2020 Status:Discontinued Comments:50 MG PO BID dicyclomine hydrochloride 20 MG Oral Tablet [Bentyl];20 MILLIGRAM PO Q8H PRN Start:13-Oct-2020 Status:Discontinued Comments:20 MG PO Q8H PRN As Needed for ABDOMINAL CRAMPS/PAIN 1 ML Sodium Chloride 9 MG/ML Prefilled Syringe;10 MILLILITER INTRAVEN. Q12HR Quantity:1 Yobany David MD Start:25-Jul-2020 Status:Discontinued Comments:[id number] Administration Instructions:flush every shift and before after each IVmedication is administered 1 ML Sodium Chloride 9 MG/ML Prefilled Syringe;10 MILLILITER INTRAVEN. ASDIR Quantity:1 Yobany David MD Start:25-Jul-2020 Status:Discontinued Comments:[id number] Administration Instructions:flush every shift and before after each IVmedication is administered erythromycin 0.005 MG/MG Ophthalmic Ointment;1 APPLICATION LEFT EYE Q4H WA Start:25-Jul-2020 Status:Discontinued Comments:1 APPLIC LEFT EYE Q4H WA 1 ML Sodium Chloride 9 MG/ML Prefilled Syringe;10 MILLILITER INTRAVEN. Q12HR Quantity:1 Tina Johnson DO Start:06-May-2020 Status:Discontinued Comments:[id number] Administration Instructions:flush every shift and before after each IVmedication is administered LANTUS;20 UNIT SUBCUTANEOUS QAM Quantity:1 Ana Falcon DO Start:06-May-2020 Status:Discontinued Comments:[id number] metOLazone 5 MG Oral Tablet; 10 MILLIGRAM ORAL DAILY Quantity:2 Ana Falcon DO Start:06-May-2020 Status:Discontinued Comments:[id number] 24 HR isosorbide mononitrate 60 MG Extended Release Oral Tablet [Imdur];60 MILLIGRAM ORAL DAILY Quantity:1 Ana Falcon DO Start:06-May-2020 Status:Discontinued Comments:[id number] Administration Instructions:DO NOT CRUSH CUT OR CHEW LOSARTAN POTASSIUM 50 MG TABLET_LOSA50TA;100 MILLIGRAM ORAL DAILY Quantity:2 Ana Falcon DO Start:06-May-2020 Status:Discontinued Comments:[id number] clopidogrel 75 MG Oral Table t [Plavix];75 MILLIGRAM ORAL DAILY Quantity:1 Ana Falcon DO Start:06-May-2020 Status:Discontinued Comments:[id number] aspirin 325 MG Oral Tablet;3 25 MILLIGRAM ORAL DAILY Quantity:1 Ana Falcon DO Start:06-May-2020 Status:Discontinued Comments:[id number] amLODIPine 5 MG Oral Tablet [Norvasc];10 MILLIGRAM ORAL DAILY Quantity:2 Ana Falcon DO Start:06-May-2020 Status:Discontinued Comments:[id number] pantoprazole 40 MG Delayed Release Oral Tablet [Protonix];40 MILLIGRAM ORAL DAILY@0600 Quantity:1 Ana Falcon DO Start:06-May-2020 Status:Discontinued Comments:[id number] Administration Instructions:DO NOT CRUSH, CUT OR CHEW acetaminophen 21.7 MG/ML / HYDROcodone bitartrate 0.5 MG/ML Oral Solution;15 MILLILITER ORAL Q6HR Quantity:1 Ana Falcon DO Start:06-May-2020 Status:Discontinued Comments:[id number] LANTUS;80 UNIT SUBCUTANEOUS BEDTIME Quantity:4 Ana Falcon DO Start:06-May-2020 Status:Discontinued Comments:[id number] gabapentin 300 MG Oral Capsu le [Neurontin];300 MILLIGRAM ORAL TID Quantity:1 Ana Falcon DO Start:06-May-2020 Status:Discontinued Comments:[id number] glucose 4000 MG Chewable Tablet;16 GRAM ORAL ASDIR Quantity:4 Ana Falcon DO Start:06-May-2020 Status:Discontinued Comments:[id number] Administration Instructions:If patient awake, alert and tolerating oral intake: giveGlucose 4 gram tablets. Administer 16 grams (4 tablets) forblood glucose <70 mg/dL and notify physician; repeat in 15minutes if blood glucose < 70 mg/dL and notify physician.* Chew tablets thoroughly before swallowing glucose 500 MG/ML Injectable Solution;12.5 GRAM INTRAVEN. ASDIR Quantity:1 Ana Falcon DO Start:06-May-2020 Status:Discontinued Comments:[id number] rosuvastatin calcium 20 MG O ral Tablet;20 MILLIGRAM ORAL BEDTIME Quantity:1 Ana Falcon DO Start:06-May-2020 Status:Discontinued Comments:[id number] hydrALAZINE hydrochloride 25 MG Oral Tablet;25 MILLIGRAM ORAL BID Quantity:1 Ana Falcon DO Start:06-May-2020 Status:Discontinued Comments:[id number] Administration Instructions: antihypertensive equiv. to Apresoline < >< >< >Caution, Look Alike Sound Alike< >< >< > bumetanide 1 MG Oral Tablet; 1 MILLIGRAM ORAL 0900,1700 Quantity:1 Ana Falcon DO Start:06-May-2020 Status:Discontinued carvedilol 25 MG Oral Tablet [Coreg];25 MILLIGRAM ORAL BID Quantity:1 Ana Falcon DO Start:06-May-2020 Status:Discontinued Comments:[id number] Administration Instructions:TAKE WITH FOOD insulin, regular, human 100 UNT/ML Injectable Solution [HumuLIN R];[id number] Administration Instructions:HIGH ALERT DRUG< >< >< >Caution, Look Alike Sound Alike< >< >< >*DISPOSE OF UNUSED INSULIN IN BLACK BOX* Quantity:0 Ana Falcon DO Start:06-May-2020 Status:Discontinued Comments:[id number] Administration Instructions:HIGH ALERT DRUG< >< >< >Caution, Look Alike Sound Alike< >< >< >*DISPOSE OF UNUSED INSULIN IN BLACK BOX* ondansetron 2 MG/ML Injectab le Solution [Zofran];4 MILLIGRAM INTRAVEN. Q8H PRN Quantity:1 Ana Falcon DO Start:06-May-2020 Status:Discontinued Comments:[id number] Administration Instructions:4 MG dose may be given IV push over 2 MINUTESDoses > 4 mg: Use 50 mL D5W or 0.9% NaCl infuse over 15 minutes 1 ML Sodium Chloride 9 MG/ML Prefilled Syringe;10 MILLILITER INTRAVEN. ASDIR Quantity:1 Tina Johnson DO Start:05-May-2020 Status:Discontinued Comments:[id number] Administration Instructions:flush every shift and before after each IVmedication is administered insulin glargine 100 UNT/ML Injectable Solution;20 UNITS SUBCUTANEOUS ASDIR Start:05-May-2020 Status:Discontinued Comments:20 UNITS SUBQ ASDIR diazePAM 5 MG Oral Tablet;5 MILLIGRAM PO TID Start:17-Mar-2020 Status:Discontinued Comments:5 MG PO TID {21 (methylPREDNISolone 4 MG Oral Tablet [Medrol]) } Pack [Medrol Dosepak];1 PACKET PO ASDIR Start:17-Mar-2020 Status:Discontinued Comments:1 PACKET PO ASDIR diazePAM 5 MG Oral Tablet;5 MILLIGRAM PO BID Start:24-Feb-2020 Status:Discontinued Comments:5 MG PO BID As Needed for MUSCLE SPASMS neostigmine methylsulfate 1 MG/ML Injectable Solution;Provider Administration Instructions:Caution: may cause bradycardia, have atropine available Quantity:1 MAITI99 Start:02-Jan-2020 Status:Discontinued Comments:Provider Administration Instructions:Caution: may cause bradycardia, have atropine available 1 ML glycopyrrolate 0.2 MG/M L Injection Quantity:1 MAITI99 Start:02-Jan-2020 Status:Discontinued ondansetron 2 MG/ML Injectab le Solution [Zofran];Provider Administration Instructions:4 MG dose may be given IV push over 2 MINUTESDoses > 4 mg: Use 50 mL D5W or 0.9% NaCl infuse over 15 minutes Quantity:1 MA99 Start:02-Jan-2020 Status:Discontinued Comments:Provider Administration Instructions:4 MG dose may be given IV push over 2 MINUTESDoses > 4 mg: Use 50 mL D5W or 0.9% NaCl infuse over 15 minutes ondansetron 2 MG/ML Injectab le Solution [Zofran];4 MILLIGRAM INTRAVEN. PACU Quantity:1 Start:02-Jan-2020 Status:Discontinued Comments:[id number] Administration Instructions:* PACU * may repeat x 1, for maximum of 8 mg calcium chloride 0.2 MG/ML / potassium chloride 0.3 MG/ML / sodium chloride 6 MG/ML / sodium lactate 3.1 MG/ML Injectable Solution;Provider Administration Instructions:* PACU order, D/C after transfer * MAITI99 Start:02-Jan-2020 Status:Discontinued Comments:Provider Administration Instructions:* PACU order, D/C after transfer * 1 ML ePHEDrine sulfate 50 MG /ML Injection;Provider Administration Instructions:< >< >< >Caution, Look Alike Sound Alike< >< >< > Quantity:1 Jun Esteban MD Start:02-Jan-2020 Status:Discontinued Comments:Provider Administration Instructions:< >< >< >Caution, Look Alike Sound Alike< >< >< > rocuronium bromide 10 MG/ML Injectable Solution [Zemuron];Provider Administration Instructions: WARNING: CAUSES RESPIRATORY ARREST PATIENT MUST BEVENTILATED HIGH-ALERT DRUG Quantity:1 Jun Esteban MD Start:02-Jan-2020 Status:Discontinued Comments:Provider Administration Instructions: WARNING: CAUSES RESPIRATORY ARREST PATIENT MUST BEVENTILATED HIGH-ALERT DRUG Etomidate 2 MG/ML Injectable Solution Quantity:1 Jun Esteban MD Start:02-Jan-2020 Status:Discontinued Esmolol hydrochloride 10 MG/ ML Injectable Solution Quantity:1 Jun Esteban MD Start:02-Jan-2020 Status:Discontinued 2 ML fentaNYL 0.05 MG/ML Injection Quantity:1 Jun Esteban MD Start:02-Jan-2020 Status:Discontinued Propofol 10 MG/ML Injectable Suspension [Diprivan] Quantity:1 Jun Esteban MD Start:02-Jan-2020 Status:Discontinued 2 ML fentaNYL 0.05 MG/ML Injection Quantity:1 Jun Esteban MD Start:02-Jan-2020 Status:Discontinued BUPivacaine hydrochloride 5 MG/ML / EPINEPHrine 0.005 MG/ML Injectable Solution [Sensorcaine with EPINEPHrine] Quantity:1 Jun Esteban MD Start:02-Jan-2020 Status:Discontinued phenylephrine hydrochloride 10 MG/ML Injectable Solution Quantity:1 Jun Esteban MD Start:02-Jan-2020 Status:Discontinued Glucose 50 MG/ML / Sodium Chloride 0.0769 MEQ/ML Injectable Solution Jun Esteban MD Start:02-Jan-2020 Status:Discontinued traMADol hydrochloride 50 MG Oral Tablet [Ultram];50 MILLIGRAM PO Q6H PRN Start:02-Jan-2020 Status:Discontinued Comments:50 MG PO Q6H PRN As Needed for PAIN SCALE 4-6 gabapentin 300 MG Oral Capsu le [Neurontin];300 MILLIGRAM PO TID Start:25-Dec-2019 Status:Discontinued Comments:300 MG PO TID bumetanide 2 MG Oral Tablet; 2 MILLIGRAM PO BID Start:25-Dec-2019 Status:Discontinued Comments:2 MG PO BID Ergocalciferol 1.25 MG Oral Capsule;94191 UNITS PO Q7D Start:25-Dec-2019 Status:Discontinued Comments:91357 UNITS PO Q7D hydrALAZINE hydrochloride 25 MG Oral Tablet;25 MILLIGRAM PO BID Start:25-Dec-2019 Status:Discontinued Comments:25 MG PO BID rosuvastatin calcium 20 MG O ral Tablet [Crestor];20 MILLIGRAM PO BEDTIME Start:25-Dec-2019 Status:Discontinued Comments:20 MG PO BEDTIME pantoprazole 20 MG Delayed Release Oral Tablet;20 MILLIGRAM PO DAILY Start:25-Dec-2019 Comments:20 MG PO DAILY folic acid 0.8 MG Oral Tablet;0.8 MILLIGRAM PO DAILY Start:07-Oct-2018 Comments:0.8 MG PO DAILY acetaminophen 325 MG / HYDROcodone bitartrate 7.5 MG Oral Tablet;1 TABLET PO Q6HR Start:07-Oct-2018 Status:Discontinued Comments:1 TAB PO Q6HR insulin glargine 100 UNT/ML Injectable Solution;70 UNIT SUBCUTANEOUS BEDTIME Start:07-Oct-2018 Status:Discontinued Comments:70 UNIT SUBQ BEDTIME vitamin B12 1 MG Oral Tablet;1000 MICROGRAM PO DAILY Start:07-Oct-2018 Status:Discontinued Comments:1000 MCG PO DAILY furosemide 40 MG Oral Tablet ;40 MILLIGRAM PO DAILY Start:07-Oct-2018 Comments:40 MG PO DAILY TRESIBA FLEXTOUCH U-100;60 U NITS SUBCUTANEOUS DAILY Start:20-Jan-2018 Status:Discontinued Comments:60 UNITS SUBQ DAILY TRESIBA FLEXTOUCH U-200;UNIT S SUBQ DAILY Start:20-Jan-2018 Status:Discontinued Comments:UNITS SUBQ DAILY gabapentin 600 MG Oral Tablet;600 MILLIGRAM PO BEDTIME Start:20-Jan-2018 Status:Discontinued Comments:600 MG PO BEDTIME omega-3 acid ethyl esters (U SP) 1000 MG Oral Capsule;1000 MILLIGRAM PO DAILY Start:20-Jun-2017 Comments:1000 MG PO DAILY gabapentin 300 MG Oral Capsu le [Neurontin];300 MILLIGRAM PO BID Start:20-Jun-2017 Comments:300 MG PO BID acetaminophen 325 MG / HYDROcodone bitartrate 7.5 MG Oral Tablet;1 TABLET PO Q6H PRN Start:19-Jun-2017 Status:Discontinued Comments:1 TAB PO Q6H PRN As Needed for PAIN IN LEGS escitalopram 5 MG Oral Table t [Lexapro];5 MILLIGRAM PO DAILY Start:19-Jun-2017 Status:Discontinued Comments:5 MG PO DAILY gabapentin 300 MG Oral Capsu le [Neurontin];300 MILLIGRAM PO QID Start:19-Jun-2017 Status:Discontinued Comments:300 MG PO QID potassium chloride 10 MEQ Extended Release Oral Tablet;10 MILLIEQUIVALENT PO DAILY Start:19-Jun-2017 Status:Discontinued Comments:10 MEQ PO DAILY hydroCHLOROthiazide 25 MG / triamterene 37.5 MG Oral Tablet;1 TABLET PO DAILY Start:19-Jun-2017 Status:Discontinued Comments:1 TAB PO DAILY metFORMIN hydrochloride 500 MG Oral Tablet [Glucophage];500 MILLIGRAM PO BID Start:19-Jun-2017 Status:Discontinued Comments:500 MG PO BID Ergocalciferol 1.25 MG Oral Capsule;57089 UNITS PO Q7D Start:19-Jun-2017 Comments:08359 UNITS PO Q7D loratadine 10 MG Oral Tablet ;10 MILLIGRAM PO DAILY Start:19-Jun-2017 Status:Discontinued Comments:10 MG PO DAILY pantoprazole 40 MG Delayed Release Oral Tablet [Protonix];40 MILLIGRAM PO DAILY Start:19-Jun-2017 Status:Discontinued Comments:40 MG PO DAILY rosuvastatin calcium 20 MG O ral Tablet [Crestor];20 MILLIGRAM PO BEDTIME Start:19-Jun-2017 Status:Discontinued Comments:20 MG PO BEDTIME fenofibrate 160 MG Oral Tablet;160 MILLIGRAM PO DAILY Start:19-Jun-2017 Status:Discontinued Comments:160 MG PO DAILY insulin, regular, human 100 UNT/ML Injectable Solution [HumuLIN R];30 UNITS SUBCUTANEOUS AC Start:19-Jun-2017 Status:Discontinued Comments:30 UNITS SUBQ AC As Needed for SLIDING SCALE aspirin 325 MG Oral Tablet;3 25 MILLIGRAM PO DAILY Start:19-Jun-2017 Status:Discontinued Comments:325 MG PO DAILY amLODIPine 5 MG Oral Tablet; 10 MILLIGRAM PO DAILY Start:19-Jun-2017 Status:Discontinued Comments:10 MG PO DAILY carvedilol 25 MG Oral Tablet [Coreg];25 MILLIGRAM PO BID Start:19-Jun-2017 Status:Discontinued Comments:25 MG PO BID clopidogrel 75 MG Oral Table t;75 MILLIGRAM PO DAILY Start:19-Jun-2017 Status:Discontinued Comments:75 MG PO DAILY glimepiride 2 MG Oral Tablet [Amaryl];2 MILLIGRAM PO BID Start:19-Jun-2017 Status:Discontinued Comments:2 MG PO BID 24 HR isosorbide mononitrate 60 MG Extended Release Oral Tablet;60 MILLIGRAM PO DAILY Start:19-Jun-2017 Status:Discontinued Comments:60 MG PO DAILY losartan potassium 100 MG Or al Tablet;100 MILLIGRAM PO DAILY Start:19-Jun-2017 Status:Discontinued Comments:100 MG PO DAILY BUPivacaine hydrochloride 5 MG/ML Injectable Solution [Sensorcaine] Quantity:1 Jun Esteban MD Status:Discontinued Glucose 50 MG/ML / Sodium Chloride 0.154 MEQ/ML Injectable Solution;[id number] Jun Esteban MD Status:Discontinued Comments:[id number] Procedures Performance of Urinary Filtr ation, Intermittent, Less than 6 Hours Per Day Date:24-Apr-2025 Performance of Urinary Filtr ation, Intermittent, Less than 6 Hours Per Day Date:22-Apr-2025 Performance of Urinary Filtr ation, Intermittent, Less than 6 Hours Per Day Date:19-Apr-2025 Performance of Urinary Filtr ation, Intermittent, Less than 6 Hours Per Day Date:29-Aug-2024 - CT CHEST W/O CONTRASTResult:[facility] [id number] [place] [address] PHONE #: [phone] FAX #: [phone] PT.NAME: NASH LLANOS Attending M.D.: Lesly Navarro MD : 1970 Ordering M.D.: Lesly Navarro MD Age/Sex: 54/F Location: [address] Unit #: [id number] Status: ADM IN Admit Diagnosis: POST DIALYSIS THIS Radiology #: EXAM DATE: 04/17/2025 EXAMS: CPT CODE: [id number] CT CHEST W/O CONTRAST [address] EXAMINATION: CT CHEST W/O CONTRAST CLINICAL INDICATION: Female, 54 years old. PNEUMONIA ; POST DIALYSIS THIS AM INCREASED WEAKNESS TODAY TECHNIQUE: Axial CT images of the chest were obtained. Reconstructions were performed. Unless otherwise specified, incidental thyroid, adrenal, renal, and pulmonary nodules do not require dedicated imaging follow-up. CONTRAST: None. COMPARISON: None. FINDINGS: Support Devices: None. Lower Neck: Visualized thyroid gland is normal. No enlarged supraclavicular lymph nodes are identified. Thoracic Vessels: Aorta is normal in caliber and contour. Central pulmonary arteries are normal in size. Heart and Pericardium: Cardiomegaly with postthoracotomy changes. No No pericardial effusion or thickening is present. Mediastinum and Luigi: No mediastinal mass is present. No enlarged hilar or mediastinal lymph nodes are identified. The esophagus is normal. Pleura and Diaphragm: Small right pleural effusion. No pneumothorax is identified. Right and left hemidiaphragms are normal in position. Chest Wall and Axilla: No abnormality of the chest wall is demonstrated. No enlarged axillary lymph nodes are identified. Lungs and Airways: Trachea and main bronchi are patent. Patchy infiltrate seen in lateral basal segment of right lower lobe. Compressive atelectasis due to right pleural effusion. Atelectasis at left lower lobe.. There is a tiny 2 mm nodule in the posterior segment of the right upper lobe new since previous examination dated 08/27/2024. Image 41 of 135 series 3 Upper Abdomen: Visualized solid viscera are normal. Osseous Structures: Bones are normal. IMPRESSION: 1. Cardiomegaly with postthoracotomy changes. Right lower lobe lateral basal segment infiltrate. Left basal atelectasis. Interval development of tiny 2 mm nodule in the posterior segment of the right upper lobe. Since this represents a new finding further workup is recommended. This is too small to be characterized by PET scan. Therefore, three-month follow-up to check stability of this nodule This exam was performed according to our departmental dose-optimization program which includes automated exposure control, adjustment of the mA and/or kV according to patient PAGE 1 Signed Report (CONTINUED) [facility] [address] [place] [address] PHONE #: [phone] FAX #: [phone] PT.NAME: NASH LLANOS Attending MSultana.: Lesly Navarro MD : 1970 Ordering M.Linda.: Lesly Navarro MD Age/Sex: 54/F Location: [address] Unit #: [id number] Status: ADM IN Admit Diagnosis: POST DIALYSIS THIS Radiology #: EXAM DATE: 04/17/2025 EXAMS: CPT CODE: [id number] CT CHEST W/O CONTRAST 13124 <Continued> size and/or use of iterative reconstruction technique. Electronically signed by: Jasbir Machuca MD 04/18/2025 04:15 AM EDT at 0415 Reported and signed by: JASBIR MACHUCA M.D. CC: Lesly Navarro MD Dictated Date/Time: 04/18/2025 (0415)Technologist: RT WENDI (R)(CT) Transcribed Date/Time: 04/18/2025 (041)Trace Clerk: MAYRA Electronic Signature Date/Time: 04/18/2025 (041)Printed Date/Time: 04/18/2025 (0417) BATCH NO: N/A PAGE 2 Signed Report Date:18-Apr-2025 Status:Completed CHEST PORTABLEResult:[facility] [place] [address] [place] [address] PHONE #: [phone] FAX #: [phone] PT.NAME: NASH LLANOS Attending MSultana.: Lit MarinOB: 1970 Ordering MEmma: David Marin Age/Sex: 54/F Location: [facility] Unit #: [id number] Status: REG ER Admit Diagnosis: POST DIALYSIS THIS Radiology #: EXAM DATE: 04/17/2025 EXAMS: CPT CODE: [id number] CHEST PORTABLE 56389 Indication: Altered mental status. AP portable chest: Comparison is made with a previous exam performed on 12/13/2023. The costophrenic angles are sharp. There is bilateral airspace disease, more pronounced on the right than the left with persistent cardiomegaly. The findings may represent pulmonary edema. Pneumonia cannot be excluded. The mediastinum is normal. IMPRESSION: Bilateral airspace disease, more pronounced on the right than the left. The findings may represent pulmonary edema. Pneumonia cannot be excluded. Electronically signed by: Saman Lopez MD 04/17/2025 12:21 PM EDT RP at 1221 Reported and signed by: SAMAN LOPEZ MD CC: Manohar SIERRA Dictated Date/Time: 04/17/2025 (1221)Technologist: FRANCISCO DUKE RT(R) Transcribed Date/Time: 04/17/2025 (122)Trace Clerk: MAYRA Electronic Signature Date/Time: 04/17/2025 (1221)Printed Date/Time: 04/17/2025 (1224) BATCH NO: N/A PAGE 1 Signed Report Date:17-Apr-2025 Status:Completed - CT BRAIN W/O CONTRASTResult:[facility] [address] [place]. [address] PHONE #: [phone] FAX #: [phone] PT.NAME: NASH LLANOS Attending Marilee: Lit MarinOB: 1970 Ordering Marilee: David Marin Age/Sex: 54/F Location: [facility] Unit #: [id number] Status: REG ER Admit Diagnosis: POST DIALYSIS THIS Radiology #: EXAM DATE: 04/17/2025 EXAMS: CPT CODE: [id number] CT BRAIN W/O CONTRAST 52973 INDICATION: Altered mental status; POST DIALYSIS THIS AM INCREASED WEAKNESS TODAY CT OF THE BRAIN. COMPARISON: 08/27/2024. Spiral CT of the brain was obtained in the axial projection. Coronal and sagittal reconstructions are available. A dose optimization radiation technique was utilized. There is normal visualization of the ventricular system and cerebral sulci without intra or extra axial fluid collection, mass effect or midline shift . No intracerebral hemorrhage. The pituitary gland, optic chiasm, cerebral tonsils, bony calvarium and paranasal sinuses are unremarkable IMPRESSION: No acute intracranial pathology. Electronically signed by: Saman Lopez MD 04/17/2025 12:19 PM EDT at 1219 Reported and signed by: SAMAN LOPEZ MD CC: Manohar SIERRA Dictated Date/Time: 04/17/2025 (1219)Technologist: GRADY SAM; ... Transcribed Date/Time: 04/17/2025 (1219)Trace Clerk: MAYRA Electronic Signature Date/Time: 04/17/2025 (1219)Printed Date/Time: 04/17/2025 (1222) BATCH NO: N/A PAGE 1 Signed Report Date:17-Apr-2025 Status:Completed - CT CHEST W/O CONTRASTResult:[facility] [address] PHONE #: [phone] FAX #: [phone] PT.NAME: NASH LLANOS Attending MSultana.: Jose Mendieta MD : 1970 Ordering Marilee: Mateus Rudd Age/Sex: 54/F Location: ED Unit #: [id number] Status: REG ER Admit Diagnosis: LOW PLT, HGB, K - Radiology #: EXAM DATE: 08/27/2024 EXAMS: CPT CODE: [id number] CT CHEST W/O CONTRAST 46875 STUDY: CT Chest, abdomen and pelvis without Contrast. Automatic exposure control utilized. HISTORY: andominal pain with vomit; LOW PLT, HGB, K - SENT BY PCP COMPARISON:AP chest 12/03/2023 FINDINGS: Lungs and pleura: Moderate right pleural effusion with associated atelectasis, decreased from 12/03/2023. Previously seen left pleural effusion has resolved. No left pleural effusion is seen currently. Subtle ill-defined groundglass opacity in the right upper and right middle lobe, possibly infectious or inflammatory in etiology. Vessels: Atherosclerotic changes of aorta without aneurysm. Dilated pulmonary trunk and central main pulmonary arteries as may be seen with pulmonary arterial hypertension, similar to prior. Heart: Regular megaly. No pericardial effusion. Coronary artery calcifications are present. Mediastinum and luigi: Within normal limits. Chest wall and lower neck: Chest wall anasarca. Liver: Within normal limits. Gallbladder: Cholecystectomy. Bile ducts: Normal caliber. Spleen: Within normal limits. Pancreas: Within normal limits. Adrenal glands: Within normal limits. Kidneys: Redemonstrated 2.7 cm left lower pole renal mass with Hounsfield units of approximately 54, unchanged from 05/31/2023. Ureters: Within normal limits. Urinary bladder: Grossly normal. Pelvis/reproductive organs: No pelvic masses. Bowel:Limited evaluation without intravenous or oral contrast. No evidence of bowel obstruction. Appendix is not visualized but there are no secondary signs of acute appendicitis. No evidence of diverticulitis. No enlarged mesenteric lymph nodes. Peritoneum: Intra-abdominal third spacing. No ascites. No free air. Retroperitoneum: Within normal limits. No lymphadenopathy. Vessels: Diffuse vascular calcifications. Abdominal wall: Within normal limits. Osseous structures: Within normal limits. IMPRESSION: 1. Moderate right pleural effusion with associated atelectasis, decreased from 12/03/2023. Previously seen left pleural effusion has resolved. Subtle ill-defined groundglass opacity in the right upper and right middle lobe, possibly infectious or PAGE 1 Signed Report (CONTINUED) [facility] [address] PHONE #: [phone] FAX #: [phone] PT.NAME: NASH LLANOS Attending MSultana.: Jose Mendieta MD : 1970 Ordering MSultana.: Mateus Rudd DO R3 Age/Sex: 54/F Location: ED Unit #: [id number] Status: REG ER Admit Diagnosis: LOW PLT, HGB, K - Radiology #: EXAM DATE: 08/27/2024 EXAMS: CPT CODE: [id number] CT CHEST W/O CONTRAST 15717 <Continued> inflammatory in etiology. 2. Cardiomegaly. Dilated pulmonary trunk and central main pulmonary arteries as may be seen with pulmonary arterial hypertension, similar to prior. 3. Redemonstrated indeterminate 2.7 cm left lower pole renal mass,, unchanged from 05/31/2023. Correlate with any interim workup and consider further evaluation with CT urogram or renal contrast MRI, as warranted. 4. No evidence of bowel obstruction. Appendix is not visualized but there are no secondary signs of acute appendicitis. No evidence of diverticulitis. 5. Intra-abdominal third spacing and body: Electronically signed by: Silver Frazier MD 08/27/2024 06:56 PM [facility] at 1856 Reported and signed by: Silver Frazier M.D. CC: Jose Mendieta MD; Mateus Rudd DO Dictated Date/Time: 08/27/2024 (1855)Technologist: RT WENDI (R)(CT); ... Transcribed Date/Time: 08/27/2024 (1855)Trace Clerk: MAYRA Electronic Signature Date/Time: 08/27/2024 (1855)Printed Date/Time: 08/27/2024 (1858) BATCH NO: N/A PAGE 2 Signed Report Date:27-Aug-2024 Status:Completed - CT ABDOMEN/PELVIS W/O CONTResult:[facility] [address] PHONE #: [phone] FAX #: [phone] PT.NAME: NASH LLANOS Attending MSultana.: Jose Mendieta MD : 1970 Ordering MEmma: Mateus Rudd DO R3 Age/Sex: 54/F Location: ED Unit #: [id number] Status: REG ER Admit Diagnosis: LOW PLT, HGB, K - Radiology #: EXAM DATE: 08/27/2024 EXAMS: CPT CODE: [id number] CT ABDOMEN/PELVIS W/O CONT 41126 STUDY: CT Chest, abdomen and pelvis without Contrast. Automatic exposure control utilized. HISTORY: andominal pain with vomit; LOW PLT, HGB, K - SENT BY PCP COMPARISON:AP chest 12/03/2023 FINDINGS: Lungs and pleura: Moderate right pleural effusion with associated atelectasis, decreased from 12/03/2023. Previously seen left pleural effusion has resolved. No left pleural effusion is seen currently. Subtle ill-defined groundglass opacity in the right upper and right middle lobe, possibly infectious or inflammatory in etiology. Vessels: Atherosclerotic changes of aorta without aneurysm. Dilated pulmonary trunk and central main pulmonary arteries as may be seen with pulmonary arterial hypertension, similar to prior. Heart: Regular megaly. No pericardial effusion. Coronary artery calcifications are present. Mediastinum and luigi: Within normal limits. Chest wall and lower neck: Chest wall anasarca. Liver: Within normal limits. Gallbladder: Cholecystectomy. Bile ducts: Normal caliber. Spleen: Within normal limits. Pancreas: Within normal limits. Adrenal glands: Within normal limits. Kidneys: Redemonstrated 2.7 cm left lower pole renal mass with Hounsfield units of approximately 54, unchanged from 05/31/2023. Ureters: Within normal limits. Urinary bladder: Grossly normal. Pelvis/reproductive organs: No pelvic masses. Bowel:Limited evaluation without intravenous or oral contrast. No evidence of bowel obstruction. Appendix is not visualized but there are no secondary signs of acute appendicitis. No evidence of diverticulitis. No enlarged mesenteric lymph nodes. Peritoneum: Intra-abdominal third spacing. No ascites. No free air. Retroperitoneum: Within normal limits. No lymphadenopathy. Vessels: Diffuse vascular calcifications. Abdominal wall: Within normal limits. Osseous structures: Within normal limits. IMPRESSION: 1. Moderate right pleural effusion with associated atelectasis, decreased from 12/03/2023. Previously seen left pleural effusion has resolved. Subtle ill-defined groundglass opacity in the right upper and right middle lobe, possibly infectious or PAGE 1 Signed Report (CONTINUED) [facility] [address] PHONE #: [phone] FAX #: [phone] PT.NAME: NASH LLANOS Attending MSultana.: Jose Mendieta MD : 1970 Ordering MSultana.: Mateus Rudd DO R3 Age/Sex: 54/F Location: ED Unit #: [id number] Status: REG ER Admit Diagnosis: LOW PLT, HGB, K - Radiology #: EXAM DATE: 08/27/2024 EXAMS: CPT CODE: [id number] CT ABDOMEN/PELVIS W/O CONT 10890 <Continued> inflammatory in etiology. 2. Cardiomegaly. Dilated pulmonary trunk and central main pulmonary arteries as may be seen with pulmonary arterial hypertension, similar to prior. 3. Redemonstrated indeterminate 2.7 cm left lower pole renal mass,, unchanged from 05/31/2023. Correlate with any interim workup and consider further evaluation with CT urogram or renal contrast MRI, as warranted. 4. No evidence of bowel obstruction. Appendix is not visualized but there are no secondary signs of acute appendicitis. No evidence of diverticulitis. 5. Intra-abdominal third spacing and body: Electronically signed by: Silver Frazier MD 08/27/2024 06:56 PM EST at 1856 Reported and signed by: Silver Frazier M.D. CC: Jose Mendieta MD; Mateus Rudd DO Dictated Date/Time: 08/27/2024 (1855)Technologist: RT WENDI (R)(CT); ... Transcribed Date/Time: 08/27/2024 (1855)Trace Clerk: MAYRA Electronic Signature Date/Time: 08/27/2024 (1855)Printed Date/Time: 08/27/2024 (1858) BATCH NO: N/A PAGE 2 Signed Report Date:27-Aug-2024 Status:Completed - CT BRAIN W/O CONTRASTResult:[facility] [address] PHONE #: [phone] FAX #: [phone] PT.NAME: VIETNASH DIONY Attending M.D.: Jose Mendieta MD : 1970 Ordering MSultana.: Mateus Rudd DO R3 Age/Sex: 54/F Location: ED Unit #: [id number] Status: REG ER Admit Diagnosis: LOW PLT, HGB, K - Radiology #: EXAM DATE: 08/27/2024 EXAMS: CPT CODE: [id number] CT BRAIN W/O CONTRAST 49723 EXAMINATION: CT HEAD WITHOUT CONTRAST CLINICAL INDICATION: Female, 54 years old. fall; LOW PLT, HGB, K - SENT BY PCP TECHNIQUE: Axial CT images from the skull base to the vertex without intravenous contrast. Coronal and sagittal reformatted images were created from the data set. One or more of the following dose reduction techniques were used: Automated exposure control, adjustment of the mA and/or kV according to patient size, and/or iterative reconstruction. Unless otherwise specified, incidental findings do not require dedicated imaging follow-up. [id number]. COMPARISON: No prior exam. FINDINGS: INTRACRANIAL: No acute intracranial hemorrhage or extraaxial collection. No abnormal brain parenchymal density. No evidence of acute infarction. The ventricles are normal in size and morphology. No mass or midline shift. VASCULATURE: No visualized abnormalities in the arteries or dural venous sinuses. SCALP/SKULL: No significant soft tissue or osseous abnormalities. SINUSES: The visualized paranasal sinuses and mastoid air cells are predominantly clear. ORBITS: No significant abnormalities in the visualized orbital structures. IMPRESSION: No acute intracranial abnormality. Electronically signed by: Catherine Banda MD 08/27/2024 06:32 PM [facility] at 1832 Reported and signed by: CATHERINE BANDA M.D. CC: Jose Mendieta MD; Mateus Rudd DO Dictated Date/Time: 08/27/2024 (1831)Technologist: KAYLA BEAULIEU, RT (R)(CT); ... Transcribed Date/Time: 08/27/2024 (1831)Trace Clerk: MAYRA Electronic Signature Date/Time: 08/27/2024 (1831)Printed Date/Time: 08/27/2024 (1833) BATCH NO: N/A PAGE 1 Signed Report Date:27-Aug-2024 Status:Completed Social History Smoking Status Occasional tobacco smoker Recorded: 17-Apr-2025 Ex-smoker Recorded: 27-Aug-2024 Ex-smoker Recorded: 13-Dec-2023 Smokes tobacco daily Recorded: 09-Dec-2023 Smokes tobacco daily Recorded: 23-Nov-2023 Smokes tobacco daily Recorded: 04-Jun-2023 Smokes tobacco daily Recorded: 31-May-2023 Tobacco smoking consumption unknown Recorded: Never smoked tobacco Recorded: 28-Apr-2021 Smokes tobacco daily Recorded: 10-Dec-2020 Heavy tobacco smoker Recorded: 26-Oct-2020 Tobacco smoking consumption unknown Recorded: Oct-2020 Smokes tobacco daily Recorded: 17-Oct-2020 Ex-smoker Recorded: 13-Oct-2020 Smokes tobacco daily Recorded: 25-Jul-2020 Smokes tobacco daily Recorded: 05-May-2020 Smokes tobacco daily Recorded: 17-Mar-2020 Smokes tobacco daily Recorded: 24-Feb-2020 Smokes tobacco daily Recorded: 20-Jan-2018 Smokes tobacco daily Recorded: 27-Dec-2017 Smokes tobacco daily Recorded: 20-Sep-2017 Smokes tobacco daily Recorded: 13-Sep-2017 Smokes tobacco daily Recorded: 06-Jul-2017 Smokes tobacco daily Recorded: 23-Jun-2017 Smokes tobacco daily Recorded: 19-Jun-2017 Results CBC WITH DIFFERENTIAL Ordered On:22-Apr-2025 06:59 BASOPHIL #0.0510*3/uL(Normal) Range:0.0110*3/uL-0.0810*3/uL BASOPHIL %1.0%(Normal) Range:0.1 %-1.2% EOSINOPHIL #0.1210*3/uL(Normal) Range:0.0410*3/uL-0.3610*3/uL EOSINOPHIL %2.4%(Normal) Range:0 .7%-5.8% UUDVTLFTHB97.4%(Low) Range:34.1% -44.9% HEMOGLOBIN9.1g/dL(Low) Range:11. 2g/dL-15.7g/dL IMMATURE GRANULOCYTE S #0.0910*3/uL(High) Range:010*3/uL-0.0310*3/uL IMMATURE GRANULOCYTE S %1.8%(High) Range:0%-0.4% LYMPHOCYTE #0.6410*3/uL(Low) Range:1.1810*3/uL-3.7410*3/uL LYMPHOCYTE %13.0%(Low) Range:19. 3%-51.7% MEAN CELL HGB29.0pg(Normal) Range:25.6pg-32.2pg MEAN CELL HGB BRUJDQGDYGAWY27.1g/dL(Low) Range:32.2g/dL-35.5g/dL MEAN CELL DGIXOK486.2fL(High) Range:79.4fL-94.8fL MONOCYTE #0.3910*3/uL(Normal) Range:0.2410*3/uL-0.6310*3/uL MONOCYTE %7.9%(Normal) Range:4.7 %-12.5% NEUTROPHIL #3.6310*3/uL(Normal) Range:1.5610*3/uL-6.1310*3/uL NEUTROPHIL %73.9%(High) Range:34 %-71.1% NUCLEATED RED BLOOD CELL #0.0510*3/uL(Normal) Range:010*3/uL-0.1810*3/uL NUCLEATED RED BLOOD CELL %1.0%(High) Range:0%-0.2% PLATELET UALPN1358*3/uL(Low) Range:55084*3/uL-01787*3/uL RED BLOOD CELL3.1410*6/uL(Low) Range:3.9310*6/uL-5.2210*6/uL RED CELL DISTRIBUTIO N WIDTH15.0%(High) Range:11.7%-14.4% WHITE BLOOD CELL4.910*3/uL(Normal) Range:410*3/uL-10.510*3/uL COMPREHENSIVE METABOLIC PANEL Ordered On:22-Apr-2025 07:22 ALBUMIN/GLOBULIN RATIO1.4(Normal) Range:0.7-3.6 ALBUMIN3.6g/dL(Normal) Range:3.2 g/dL-4.8g/dL ALKALINE PHOSPHATASE BBAVW444L/L(High) Range:46U/L-116U/L SGPT/ALT< 7U/L(Low) Range:10U/L- 49U/L Comments:VENIPUNCTURE SHOULD OCCUR PRIOR TO SULFASALAZINE AND/ORSULFAPYRIDINE ADMINISTRATION DUE TO THE POTENTIAL FORFALSELY DEPRESSED RESULTS. SGOT/AST17U/L(Normal) Range:0U/L -34U/L Comments:VENIPUNCTURE SHOULD OCCUR PRIOR TO SULFASALAZINE AND/ORSULFAPYRIDINE ADMINISTRATION DUE TO THE POTENTIAL FORFALSELY DEPRESSED RESULTS. BILIRUBIN TOTAL0.3mg/dL(Normal) Range:0.3mg/dL-1.2mg/dL Comments:FOR PATIENTS ON ELTROMBOPAG THERAPY, THE USE OF SIEMENS TBIMETHOD IS NOT RECOMMENDED. BUN/CREATININE RATIO9(Normal) Range:4-33 BLOOD UREA VKOXUPAB71wn/dL(High) Range:9mg/dL-23mg/dL CALCIUM8.3mg/dL(Low) Range:8.7mg /dL-10.4mg/dL FBVHBLVT36hpte/L(Normal) Range:9 8mmol/L-107mmol/L CARBON DMDVBWT34bklo/L(Low) Range:20mmol/L-31mmol/L CREATININE5.2mg/dL(High) Range:0 .55mg/dL-1.02mg/dL ANION SZG33cfoy/L(High) Range:7m mol/L-16mmol/L eGFR9.2(Low) Range:90-0 Comments:The eGFR is calculated using the 2020 CKD-EPI Cr equation,which includes serum Cr, age, and sex but does not include arace coefficient. The National Kidney Foundation recommendsthis formula for calculating eGFR in adults. GFR will notcalculate if sex is unknown or patient age is <18 years. Ref range: >/=90mL/min/1.73m2 GLOBULIN2.6g/dL(Normal) Range:1. 4g/dL-4.8g/dL MMTSEVC43ll/dL(Normal) Range:57m g/dL-106mg/dL POTASSIUM3.9mmol/L(Normal) Range :3.5mmol/L-5.1mmol/L FVTPUU653iusa/L(Low) Range:136mm ol/L-145mmol/L TOTAL PROTEIN6.2g/dL(Normal) Range:5.7g/dL-8.2g/dL CORRECTED CALCIUM8.6mg/dL(Normal) Range:8.5mg/dL-10.1mg/dL Comments:Calcium corrected for Albumin. MAGNESIUM Ordered On:21-Apr-2025 04:07 MAGNESIUM1.6mg/dL(Normal) Range :1.6mg/dL-2.6mg/dL STOOL OCCULT BLOOD Ordered On:20-Apr-2025 21:43 STOOL OCCULT BLOODPOSITIVE(Abnormal) COMPREHENSIVE METABOLIC PANEL Ordered On:20-Apr-2025 05:22 ALBUMIN/GLOBULIN RATIO1.4(Normal) Range:0.7-3.6 ALBUMIN3.6g/dL(Normal) Range:3.2 g/dL-4.8g/dL ALKALINE PHOSPHATASE FUDLE296Y/L(High) Range:46U/L-116U/L SGPT/ALT< 7U/L(Low) Range:10U/L- 49U/L Comments:VENIPUNCTURE SHOULD OCCUR PRIOR TO SULFASALAZINE AND/ORSULFAPYRIDINE ADMINISTRATION DUE TO THE POTENTIAL FORFALSELY DEPRESSED RESULTS. SGOT/AST22U/L(Normal) Range:0U/L -34U/L Comments:VENIPUNCTURE SHOULD OCCUR PRIOR TO SULFASALAZINE AND/ORSULFAPYRIDINE ADMINISTRATION DUE TO THE POTENTIAL FORFALSELY DEPRESSED RESULTS. BILIRUBIN TOTAL0.2mg/dL(Low) Range:0.3mg/dL-1.2mg/dL Comments:FOR PATIENTS ON ELTROMBOPAG THERAPY, THE USE OF SIEMENS TBIMETHOD IS NOT RECOMMENDED. BUN/CREATININE RATIO7(Normal) Range:4-33 BLOOD UREA KJUQMQXZ59ie/dL(High) Range:9mg/dL-23mg/dL CALCIUM8.0mg/dL(Low) Range:8.7mg /dL-10.4mg/dL BKWBHMQT340bjer/L(Normal) Range: 98mmol/L-107mmol/L CARBON EPVHRUS12cqar/L(Normal) Range:20mmol/L-31mmol/L CREATININE4.1mg/dL(High) Range:0 .55mg/dL-1.02mg/dL ANION HCV25zjsu/L(High) Range:7m mol/L-16mmol/L eGFR12.2(Low) Range:90-0 Comments:The eGFR is calculated using the 2020 CKD-EPI Cr equation,which includes serum Cr, age, and sex but does not include arace coefficient. The National Kidney Foundation recommendsthis formula for calculating eGFR in adults. GFR will notcalculate if sex is unknown or patient age is <18 years. Ref range: >/=90mL/min/1.73m2 GLOBULIN2.6g/dL(Normal) Range:1. 4g/dL-4.8g/dL JCCMRHH857lv/dL(Normal) Range:57 mg/dL-106mg/dL POTASSIUM3.5mmol/L(Normal) Range :3.5mmol/L-5.1mmol/L ZCINJW050aybw/L(Normal) Range:13 6mmol/L-145mmol/L TOTAL PROTEIN6.2g/dL(Normal) Range:5.7g/dL-8.2g/dL CORRECTED CALCIUM8.3mg/dL(Low) Range:8.5mg/dL-10.1mg/dL Comments:Calcium corrected for Albumin. CBC WITH DIFFERENTIAL Ordered On:20-Apr-2025 05:20 BASOPHIL #0.0310*3/uL(Normal) Range:0.0110*3/uL-0.0810*3/uL BASOPHIL %0.7%(Normal) Range:0.1 %-1.2% EOSINOPHIL #0.1010*3/uL(Normal) Range:0.0410*3/uL-0.3610*3/uL EOSINOPHIL %2.2%(Normal) Range:0 .7%-5.8% FGRVGTXZDD95.8%(Low) Range:34.1% -44.9% HEMOGLOBIN8.9g/dL(Low) Range:11. 2g/dL-15.7g/dL IMMATURE GRANULOCYTE S #0.0410*3/uL(High) Range:010*3/uL-0.0310*3/uL IMMATURE GRANULOCYTE S %0.9%(High) Range:0%-0.4% LYMPHOCYTE #0.5110*3/uL(Low) Range:1.1810*3/uL-3.7410*3/uL LYMPHOCYTE %11.2%(Low) Range:19. 3%-51.7% MEAN CELL HGB29.3pg(Normal) Range:25.6pg-32.2pg MEAN CELL HGB WYJOLRSYQAAWJ57.0g/dL(Low) Range:32.2g/dL-35.5g/dL MEAN CELL LVXSDO536.6fL(High) Range:79.4fL-94.8fL MONOCYTE #0.4510*3/uL(Normal) Range:0.2410*3/uL-0.6310*3/uL MONOCYTE %9.9%(Normal) Range:4.7 %-12.5% NEUTROPHIL #3.4110*3/uL(Normal) Range:1.5610*3/uL-6.1310*3/uL NEUTROPHIL %75.1%(High) Range:34 %-71.1% NUCLEATED RED BLOOD CELL #0.0310*3/uL(Normal) Range:010*3/uL-0.1810*3/uL NUCLEATED RED BLOOD CELL %0.7%(High) Range:0%-0.2% PLATELET ILENI0934*3/uL(Critical low) Range:97906*3/uL-17262*3/uL Comments:RESULTS WERE CALLED TO: RHINA [facility]AYES [facility] [address] [facility] [facility] of results confirmed. 51904/20/25 RED BLOOD CELL3.0410*6/uL(Low) Range:3.9310*6/uL-5.2210*6/uL RED CELL DISTRIBUTIO N WIDTH15.2%(High) Range:11.7%-14.4% WHITE BLOOD CELL4.510*3/uL(Normal) Range:410*3/uL-10.510*3/uL AG HEP B SURFACE Ordered On:19-Apr-2025 13:06 AG HEPATITIS B SURFACENEGATIVE Range:NEGATIVE HEP B SURF AB QUANT Ordered On:19-Apr-2025 13:06 HEP B SURF AB IOJQZ3l[IU]/mL(Abnormal) Range:12m[IU]/mL-0 Comments:REFERENCE RANGE< 5.00 mIU/mL = Negative> or = 5.00 mIU/mL and < 12.0 mIU/mL = Indeterminate> or = 12.0 mIU/mL = Positive MRSA Surveillance Screen Ordered On:18-Apr-2025 12:16 MRSA Surveillance ScreenSpecialResults:MRSAN GMRSA ChromAgar Screen Negative LACTIC DEHYDROGENASE(LDH) Ordered On:18-Apr-2025 04:48 LACTIC DEHYDROGENASE(LDH)179U/L(N ormal) Range:120U/L-246U/L RETICULOCYTE COUNT Ordered On:18-Apr-2025 05:01 RED BLOOD CELL3.1610*6/uL(Low) Range:3.9310*6/uL-5.2210*6/uL RETICULOCYTE COUNT6.43%(High) Range:0.5%-1.7% ABSOLUTE RETICULOCYT E COUNT0.67585*6/uL(High) Range:0.86403*6/uL-0.60884*6/uL IRON Ordered On:18-Apr-2025 12:16 LMHX85hl/dL Range:35ug/dL-1 50ug/dL Comments:Deferoxamine may decrease iron values. TOTAL IRON BINDING CAPACITY Ordered On:18-Apr-2025 12:16 TOTAL IRON BINDING NSZTDMUZ397da/dL(Abnormal) Range:260ug/dL-445ug/dL VITAMIN B12 Ordered On:18-Apr-2025 12:16 VITAMIN O88982cx/mL Range:211pg /mL-911pg/mL FOLIC ACID Ordered On:18-Apr-2025 12:16 FOLIC ACID6.6ng/mL Range:2.76ng /mL-0 FERRITIN Ordered On:18-Apr-2025 12:16 TABGJEIW383ie/mL(Abnormal) Rang e:8ng/mL-388ng/mL C. difficile GDH/Toxin Ordered On:17-Apr-2025 Co mments:Three or more loose stools in last 24 hrs: YesKnown noninfectious causes for loose stool: NoneDC if uncollected by: 04/19/25 2054Does patient have 1 or more of the above symptoms: Yes 18-Apr-2025 10:34 C. difficile GDH/ToxinResult Prompts:CDIFFRESULTS Negative for C. difficile AMMONIA Ordered On:17-Apr-2025 12:10 OKINHOO89ajux/L(High) Range:11 umol/L-32umol/L CBC WITH DIFFERENTIAL Ordered On:17-Apr-2025 15:30 WHITE BLOOD CELL6.410*3/uL(Normal) Range:410*3/uL-10.510*3/uL RED BLOOD CELL2.8110*6/uL(Low) Range:3.9310*6/uL-5.2210*6/uL HEMOGLOBIN8.3g/dL(Low) Range:11. 2g/dL-15.7g/dL TZQUMFBPJM64.0%(Low) Range:34.1% -44.9% MEAN CELL CILLFQ425.2fL(High) Range:79.4fL-94.8fL MEAN CELL HGB29.5pg(Normal) Range:25.6pg-32.2pg MEAN CELL HGB GLHSVZMWBHNQI07.6g/dL(Low) Range:32.2g/dL-35.5g/dL RED CELL DISTRIBUTIO N WIDTH15.1%(High) Range:11.7%-14.4% PLATELET OYZWB3799*3/uL(Critical low) Range:87430*3/uL-54355*3/uL Comments:RESULTS WERE CALLED TO: JENNIE KING RN ED at 121304/17/25IRLBCCVerbal read-back of results confirmed. 121304/17/25 MEAN PLATELET CTSQYN68.6fL(High) Range:9.4fL-12.3fL NEUTROPHIL %76.1%(High) Range:34 %-71.1% LYMPHOCYTE %10.7%(Low) Range:19. 3%-51.7% MONOCYTE %9.9%(Normal) Range:4.7 %-12.5% EOSINOPHIL %1.6%(Normal) Range:0 .7%-5.8% BASOPHIL %0.8%(Normal) Range:0.1 %-1.2% IMMATURE GRANULOCYTE S %0.9%(High) Range:0%-0.4% NEUTROPHIL #4.8410*3/uL(Normal) Range:1.5610*3/uL-6.1310*3/uL LYMPHOCYTE #0.6810*3/uL(Low) Range:1.1810*3/uL-3.7410*3/uL MONOCYTE #0.6310*3/uL(Normal) Range:0.2410*3/uL-0.6310*3/uL EOSINOPHIL #0.1010*3/uL(Normal) Range:0.0410*3/uL-0.3610*3/uL BASOPHIL #0.0510*3/uL(Normal) Range:0.0110*3/uL-0.0810*3/uL IMMATURE GRANULOCYTE S #0.0610*3/uL(High) Range:010*3/uL-0.0310*3/uL NUCLEATED RED BLOOD CELL %0.5%(High) Range:0%-0.2% NUCLEATED RED BLOOD CELL #0.0310*3/uL(Normal) Range:010*3/uL-0.1810*3/uL PLATELET MORPHOLOGY Ordered On:17-Apr-2025 15:30 PLATELET ESTIMATEDECREASED Ran ge:ADEQUATE PLATELET MORPHOLOGYO CC GIANT PLATELETS Range:NORMAL CBC INTERPRETATION Ordered On:17-Apr-2025 15:30 CBC INTERPRETATION Comments:PA THOLOGIST'S REVIEW INTERPRETATION:Essentially unremarkable WBC count with relativeneutrophilia and slight increase in circulating immaturegranulocytes and nucleated red blood cells consistent with aleukoerythroblastic reaction.Hypochromic, macrocytic anemia.Thrombocytopenia without platelet clumping or satellitosis.There is no evidence of circulating blasts, dysplastic ordysmorphic cells present. Neither eosinophilia norbasophilia is present. There is no evidence of toxicgranulation or cellular inclusion bodies (i.e. Maryan rods).There is no evidence of acute leukemia.The differential diagnosis for a leukoerythroblasticreaction includes;Myelophthisic process (i.e. metastatic malignancy/marrowinfiltrative process)Chronic myelogenous leukemia (CML)Chronic neutrophilic leukemia (CNL)MyelofibrosisNon-neoplastic diseases Hemolytic anemia (especially acute hemolysis) Gaucher's disease Multiple trauma Severe hypoxia Severe infections (i.e. viral, parasitic andtuberculosis infections) Severe intoxications Severe hemorrhageRecommend excluding a source of acuteinflammation/infection/necrosis . Recommend excluding asource of chronic blood loss (i.e. gastrointestinal tract).Recommend obtaining serum B12, folate and ferritin levels,if clinically indicated. Correlation with a comprehensiveclinical history and physical examination is recommended. ([id number]) REVIEWED BY: Ochoa Ji 04/17/25 1528 B TYPE NATRIURETIC PEPTIDE Ordered On:17-Apr-2025 12:14 B TYPE NATRIURETIC PIBZIUO1830.5pg/mL(High) Range:0pg/mL-100pg/mL Comments:BNP is a neurohormone secreted mainly in the cardiacventricles in response to volume expansion and pressureoverload. Because conditions other than heart failure canresult in an elevated BNP level, the clinical context of apatient with a positive BNP must be considered.Dialysis patients will have elevated BNP levels reflectingincreased ventricular filling pressure. Increased BNP levelscan also be observed in AMI severe enough to elevateventricular pressure.While a negative BNP value makes the diagnosis of heartfailure unlikely, it does not exclude the diagnosis of otherpotentially serious medical conditions such as unstableangina, AMI, asthma, COPD, or pulmonary embolism. COMPREHENSIVE METABOLIC PANEL Ordered On:17-Apr-2025 11:31 MQGFUX007giii/L(Normal) Range: 136mmol/L-145mmol/L POTASSIUM2.5mmol/L(C ritica l low) Range:3.5mmol/L-5.1mmol/L Comments:RESULTS CALLED TO AND READ BACK BY:PARMINDER OROZCO RN/YAYA 04/17/25 AT 1128 BY: ADELIALAR2 SDCNWPPA67aqwv/L(Normal) Range:9 8mmol/L-107mmol/L CARBON MZCOXVX50ptqe/L(Normal) Range:20mmol/L-31mmol/L ANION HRE66aiyz/L(High) Range:7m mol/L-16mmol/L ZFJKPWY535sw/dL(High) Range:57mg /dL-106mg/dL BLOOD UREA FAPISPOG85io/dL(High) Range:9mg/dL-23mg/dL CREATININE4.4mg/dL(High) Range:0 .55mg/dL-1.02mg/dL BUN/CREATININE RATIO9(Normal) Range:4-33 eGFR11.2(Low) Range:90-0 Comments:The eGFR is calculated using the 2020 CKD-EPI Cr equation,which includes serum Cr, age, and sex but does not include arace coefficient. The National Kidney Foundation recommendsthis formula for calculating eGFR in adults. GFR will notcalculate if sex is unknown or patient age is <18 years. Ref range: >/=90mL/min/1.73m2 TOTAL PROTEIN6.4g/dL(Normal) Range:5.7g/dL-8.2g/dL ALBUMIN3.8g/dL(Normal) Range:3.2 g/dL-4.8g/dL GLOBULIN2.6g/dL(Normal) Range:1. 4g/dL-4.8g/dL ALBUMIN/GLOBULIN RATIO1.5(Normal) Range:0.7-3.6 CALCIUM7.5mg/dL(Low) Range:8.7mg /dL-10.4mg/dL BILIRUBIN TOTAL0.2mg/dL(Low) Range:0.3mg/dL-1.2mg/dL Comments:FOR PATIENTS ON ELTROMBOPAG THERAPY, THE USE OF SIEMENS TBIMETHOD IS NOT RECOMMENDED. SGOT/AST21U/L(Normal) Range:0U/L -34U/L Comments:VENIPUNCTURE SHOULD OCCUR PRIOR TO SULFASALAZINE AND/ORSULFAPYRIDINE ADMINISTRATION DUE TO THE POTENTIAL FORFALSELY DEPRESSED RESULTS. SGPT/ALT< 7U/L(Low) Range:10U/L- 49U/L Comments:VENIPUNCTURE SHOULD OCCUR PRIOR TO SULFASALAZINE AND/ORSULFAPYRIDINE ADMINISTRATION DUE TO THE POTENTIAL FORFALSELY DEPRESSED RESULTS. ALKALINE PHOSPHATASE VTSNK469C/L(High) Range:46U/L-116U/L GLUCOSE POINT OF CARE Ordered On:29-Aug-2024 Com ments:CHAO NotifiedCleaned Meter 29-Aug-2024 06:16 GLUCOSE POINT OF BOVQ45dw/dL(Normal) Range:70mg/dL-110mg/dL CBC Ordered On:29-Aug-2024 04:57 IFBKRMJBGA02.6%(Low) Range:34. 1%-44.9% HEMOGLOBIN8.0g/dL(Low) Range:11. 2g/dL-15.7g/dL MEAN CELL HGB30.2pg(Normal) Range:25.6pg-32.2pg MEAN CELL HGB ZZBJBSMYUVOJA00.0g/dL(Low) Range:32.2g/dL-35.5g/dL MEAN CELL HHDVHK760.2fL(High) Range:79.4fL-94.8fL PLATELET MUNXN9670*3/uL(Low) Range:89778*3/uL-90209*3/uL RED BLOOD CELL2.6510*6/uL(Low) Range:3.9310*6/uL-5.2210*6/uL RED CELL DISTRIBUTIO N WIDTH15.8%(High) Range:11.7%-14.4% WHITE BLOOD CELL3.510*3/uL(Low) Range:410*3/uL-10.510*3/uL BASIC METABOLIC PANEL Ordered On:29-Aug-2024 05:06 BUN/CREATININE RATIO8(Normal) Range:4-33 BLOOD UREA BZFPVIWQ75zw/dL(High) Range:7mg/dL-18mg/dL CALCIUM8.5mg/dL(Normal) Range:8. 5mg/dL-10.1mg/dL PYQJVBSJ694dsze/L(High) Range:98 mmol/L-107mmol/L CARBON HSSXXBR15xpzz/L(Normal) Range:21mmol/L-32mmol/L CREATININE4.5mg/dL(High) Range:0 .6mg/dL-1mg/dL ANION YUE2yhqm/L(Normal) Range:7 mmol/L-16mmol/L eGFR10.9(Low) Range:90-0 Comments:The eGFR is calculated using the 2020 CKD-EPI Cr equation,which includes serum Cr, age, and sex but does not include arace coefficient. The National Kidney Foundation recommendsthis formula for calculating eGFR in adults. GFR will notcalculate if sex is unknown or patient age is <18 years. Ref range: >/=90mL/min/1.73m2 DYSRJQV04kz/dL(Normal) Range:74m g/dL-106mg/dL POTASSIUM5.5mmol/L(High) Range:3 .5mmol/L-5.1mmol/L ZXJAOQ783blqg/L(Normal) Range:13 6mmol/L-145mmol/L GLUCOSE POINT OF CARE Ordered On:28-Aug-2024 Com ments:RN NotifiedCleaned Meter 28-Aug-2024 19:57 GLUCOSE POINT OF PKTX85zv/dL(Normal) Range:70mg/dL-110mg/dL GLUCOSE POINT OF CARE Ordered On:28-Aug-2024 Com ments:RN Notified 28-Aug-2024 16:05 GLUCOSE POINT OF VLDS008aw/dL(Normal) Range:70mg/dL-110mg/dL GLUCOSE POINT OF CARE Ordered On:28-Aug-2024 Com ments:RN Notified 28-Aug-2024 11:23 GLUCOSE POINT OF SDAQ638qe/dL(High) Range:70mg/dL-110mg/dL AG HEP B SURFACE Ordered On:28-Aug-2024 13:13 AG HEPATITIS B SURFACENEGATIVE Range:NEGATIVE HEP B SURF AB QUANT Ordered On:28-Aug-2024 13:13 HEP B SURF AB QUANT1.4m[IU]/mL(Abnormal) Range:12m[IU]/mL-0 Comments:REFERENCE RANGE< 5.00 mIU/mL = Negative> or = 5.00 mIU/mL and < 12.0 mIU/mL = Indeterminate> or = 12.0 mIU/mL = Positive GLUCOSE POINT OF CARE Ordered On:28-Aug-2024 Com ments:RN Notified 28-Aug-2024 06:12 GLUCOSE POINT OF FYKE245ed/dL(High) Range:70mg/dL-110mg/dL CBC Ordered On:28-Aug-2024 04:23 XWYGGFSRPT72.6%(Low) Range:34. 1%-44.9% HEMOGLOBIN8.3g/dL(Low) Range:11. 2g/dL-15.7g/dL MEAN CELL HGB30.2pg(Normal) Range:25.6pg-32.2pg MEAN CELL HGB BUGQHPAKRWTKA83.0g/dL(Low) Range:32.2g/dL-35.5g/dL MEAN CELL JVJENP731.0fL(High) Range:79.4fL-94.8fL PLATELET XTHQT1745*3/uL(Low) Range:76669*3/uL-28358*3/uL RED BLOOD CELL2.7510*6/uL(Low) Range:3.9310*6/uL-5.2210*6/uL RED CELL DISTRIBUTIO N WIDTH15.7%(High) Range:11.7%-14.4% WHITE BLOOD CELL3.210*3/uL(Low) Range:410*3/uL-10.510*3/uL PLATELET MORPHOLOGY Ordered On:28-Aug-2024 04:23 PLATELET ESTIMATEDECREASED Ran ge:ADEQUATE PLATELET MORPHOLOGYNORMAL Range: NORMAL BASIC METABOLIC PANEL Ordered On:28-Aug-2024 04:38 BUN/CREATININE RATIO6(Normal) Range:4-33 BLOOD UREA DWMHZCIG22mo/dL(High) Range:7mg/dL-18mg/dL CALCIUM7.9mg/dL(Low) Range:8.5mg /dL-10.1mg/dL RLILNSBP230ugbj/L(Normal) Range: 98mmol/L-107mmol/L CARBON XUYCAYL47runz/L(Normal) Range:21mmol/L-32mmol/L CREATININE3.9mg/dL(High) Range:0 .6mg/dL-1mg/dL ANION RWG2etqu/L(Normal) Range:7 mmol/L-16mmol/L eGFR13.0(Low) Range:90-0 Comments:The eGFR is calculated using the 2020 CKD-EPI Cr equation,which includes serum Cr, age, and sex but does not include arace coefficient. The National Kidney Foundation recommendsthis formula for calculating eGFR in adults. GFR will notcalculate if sex is unknown or patient age is <18 years. Ref range: >/=90mL/min/1.73m2 EYSZAHR156cj/dL(High) Range:74mg /dL-106mg/dL POTASSIUM3.1mmol/L(Low) Range:3. 5mmol/L-5.1mmol/L WCSXTE127hirm/L(Normal) Range:13 6mmol/L-145mmol/L MRSA Surveillance Screen Ordered On:28-Aug-2024 07:42 MRSA Surveillance ScreenSpecialResults:MRSAN GMRSA ChromAgar Screen Negative GLUCOSE POINT OF CARE Ordered On:27-Aug-2024 Comm ents:RN Notified 27-Aug-2024 23:15 GLUCOSE POINT OF ENNT520ok/dL(High) Range:70mg/dL-110mg/dL INFLUENZA A B AG SCREEN Ordered On:27-Aug-2024 20:10 INFLUENZA A AGNEGATIVE Range:NE GATIVE INFLUENZA B AGNEGATIVE Range:NEG ATIVE Novel Coronavirus 2019 InHouse Ordered On:27-Aug-2024 20:05 Novel Coronavirus 20 19 InHouseNegative Range:Negative Comments:Negative results should be treated as presumptive and, ifinconsistent with clinical signs and symptoms or necessaryfor patient management, should be tested with differentauthorized or cleared molecular tests. Negative results donot preclude SARS-CoV-2 infection and should not be used asthe sole basis for patient management decisions. Negativeresults should be considered in the context of a patient'srecent exposures, history, and the presence of clinicalsigns and symptoms consistent with COVID-19.The ID NOW COVID-19 has been authorized by the FDA under anemergency use authorization for use by authorizedlaboratories and patient care settings. The test has beenauthorized only for the detection of nucleic acid vlfaUGHQ-KbQ-9.Assay Methodology:Isothermal nucleic acid amplification technology FLU FOR MARKEL Ordered On:27-Aug-2024 20:11 FLU FOR SOFIAFLU FOR MARKEL TROPI HIGH SENSITIVITY Ordered On:27-Aug-2024 20:18 TROPI HIGH CJQSHWCZVZN36kg/L(Critical High) Range:0-54ng/L Comments:CALLED RESULTS TO BROOKE ESPINOZA RN/CRISTINA 2018 BY IRTGPH ON 08/27/24.Were the results read back to the tech? Y99th percentileFemale: <54 ng/L Male: <78 ng/LPer the 4th universal definition of Myocardial infarction(OK), OK is defined as the presence of acute myocardialinjury (i.e., detection of a rise and/or fall of troponinvalues with at least 1 troponin > 99th percentile UpperReference Limit) in the setting of clinical evidence ofacute myocardial ischemia such as ischemic symptoms or newischemic EKG changes.High-sensitivity troponin results should be interpreted inconjunction with other diagnostic tests and clinicalinformation. WBC REFLEX Ordered On:27-Aug-2024 17:59 WBC REFLEXABNORMAL CBC WITH DIFFERENTIAL Ordered On:27-Aug-2024 17:58 BASOPHIL #0.0410*3/uL(Normal) Range:0.0110*3/uL-0.0810*3/uL BASOPHIL %1.1%(Normal) Range:0.1 %-1.2% EOSINOPHIL #0.1710*3/uL(Normal) Range:0.0410*3/uL-0.3610*3/uL EOSINOPHIL %4.7%(Normal) Range:0 .7%-5.8% NNCHJJZCWQ23.0%(Low) Range:34.1% -44.9% HEMOGLOBIN8.9g/dL(Low) Range:11. 2g/dL-15.7g/dL IMMATURE GRANULOCYTE S #0.0110*3/uL(Normal) Range:010*3/uL-0.0310*3/uL IMMATURE GRANULOCYTE S %0.3%(Normal) Range:0%-0.4% LYMPHOCYTE #0.7510*3/uL(Low) Range:1.1810*3/uL-3.7410*3/uL LYMPHOCYTE %20.5%(Normal) Range: 19.3%-51.7% MEAN CELL HGB30.1pg(Normal) Range:25.6pg-32.2pg MEAN CELL HGB SHXJVDXLWQPQL33.7g/dL(Low) Range:32.2g/dL-35.5g/dL MEAN CELL YEVEVZ891.4fL(High) Range:79.4fL-94.8fL MONOCYTE #0.4910*3/uL(Normal) Range:0.2410*3/uL-0.6310*3/uL MONOCYTE %13.4%(High) Range:4.7% -12.5% MEAN PLATELET YPQDIG63.0fL(Normal) Range:9.4fL-12.3fL NEUTROPHIL #2.1910*3/uL(Normal) Range:1.5610*3/uL-6.1310*3/uL NEUTROPHIL %60.0%(Normal) Range: 34%-71.1% NUCLEATED RED BLOOD CELL #0.0010*3/uL(Normal) Range:010*3/uL-0.1810*3/uL NUCLEATED RED BLOOD CELL %0.0%(Normal) Range:0%-0.2% PLATELET HTBOD7733*3/uL(Low) Range:13151*3/uL-74965*3/uL RED BLOOD CELL2.9610*6/uL(Low) Range:3.9310*6/uL-5.2210*6/uL RED CELL DISTRIBUTIO N WIDTH15.9%(High) Range:11.7%-14.4% WHITE BLOOD CELL3.710*3/uL(Low) Range:410*3/uL-10.510*3/uL COMPREHENSIVE METABOLIC PANEL Ordered On:27-Aug-2024 18:32 ALBUMIN/GLOBULIN RATIO0.9(Normal) Range:0.7-3.6 ALBUMIN3.3g/dL(Low) Range:3.4g/d L-5g/dL Comments:Interpretative Albumin Treatment Text: (P&T Approved 04/20)2.0 - 3.4 Suggest treatment by diet.<2.0 Suggest treatment by albumin administration. ALKALINE PHOSPHATASE ATLXQ92L/L(Normal) Range:45U/L-117U/L SGPT/ALT< 10U/L(Low) Range:13U/L -61U/L SGOT/AST10U/L(Low) Range:15U/L-3 7U/L BILIRUBIN TOTAL0.90mg/dL(Normal) Range:0.2mg/dL-1mg/dL BUN/CREATININE RATIO6(Normal) Range:4-33 BLOOD UREA DMVQXLRP58wz/dL(High) Range:7mg/dL-18mg/dL CALCIUM8.3mg/dL(Low) Range:8.5mg /dL-10.1mg/dL CORRECTED CALCIUM8.9mg/dL(Normal) Range:8.5mg/dL-10.1mg/dL Comments:Calcium corrected for Albumin. CZSBLETL128tudu/L(Normal) Range: 98mmol/L-107mmol/L CARBON BWSRQMM66firv/L(Normal) Range:21mmol/L-32mmol/L CREATININE3.6mg/dL(High) Range:0 .6mg/dL-1mg/dL ANION GVG5zdws/L(Normal) Range:7 mmol/L-16mmol/L eGFR14.3(Low) Range:90-0 Comments:The eGFR is calculated using the 2020 CKD-EPI Cr equation,which includes serum Cr, age, and sex but does not include arace coefficient. The National Kidney Foundation recommendsthis formula for calculating eGFR in adults. GFR will notcalculate if sex is unknown or patient age is <18 years. Ref range: >/=90mL/min/1.73m2 GLOBULIN3.6g/dL(Normal) Range:1. 4g/dL-4.8g/dL ESBXSVB589qn/dL(High) Range:74mg /dL-106mg/dL POTASSIUM2.9mmol/L(C ritica l low) Range:3.5mmol/L-5.1mmol/L Comments:RESULTS CALLED TO: JABARI BUSTOS RN/ED at 183108/27/24Verbal read-back of results confirmed. 183108/27/24 LTBEID026cqzs/L(Normal) Range:13 6mmol/L-145mmol/L TOTAL PROTEIN6.9g/dL(Normal) Range:6.4g/dL-8.2g/dL PHOSPHORUS Ordered On:27-Aug-2024 18:32 PHOSPHORUS4.3mg/dL(Normal) Rang e:2.5mg/dL-4.9mg/dL MAGNESIUM Ordered On:27-Aug-2024 18:32 MAGNESIUM1.7mg/dL(Normal) Range :1.6mg/dL-2.6mg/dL TROPI HIGH SENSITIVITY Ordered On:27-Aug-2024 18:32 TROPI HIGH KUOEUSABFZL53ab/L(Critical High) Range:0-54ng/L Comments:CALLED RESULTS TO JABARI BUSTOS RN/CRISTINA 183Charmaine BY IRLMPH ON 08/27/24.Were the results read back to the tech? Y99th percentileFemale: <54 ng/L Male: <78 ng/LPer the 4th universal definition of Myocardial infarction(OK), OK is defined as the presence of acute myocardialinjury (i.e., detection of a rise and/or fall of troponinvalues with at least 1 troponin > 99th percentile UpperReference Limit) in the setting of clinical evidence ofacute myocardial ischemia such as ischemic symptoms or newischemic EKG changes.High-sensitivity troponin results should be interpreted inconjunction with other diagnostic tests and clinicalinformation. Vital Signs 24-Apr-2025 15:45 TEMP KQTYNUN35.5c Comments:36.5 Pulse73/min Comments:73 Respiratory Rate16/min Comments: 16 O2 SAT94% Comments:94 BP Kvmwjxdj244vd[Hg] Comments:14 4 BP Ldobkvsuc56hg[Hg] Comments:49 24-Apr-2025 14:25 Gpridrbbisx08m Comments:98.0 Pulse65/min Comments:65 Respiratory Rate18/min Comments: 18 BP Nugjqsis523ph[Hg] Comments:16 8 BP Cleafnlfb61ah[Hg] Comments:53 Oxygen delivery devices: Comment s:Nasal cannula 24-Apr-2025 11:21 Kfxsfanekng83.6f Comments:98.6 Pulse71/min Comments:71 Respiratory Rate18/min Comments: 18 BP Pbdowjdn550xy[Hg] Comments:17 1 BP Dzfmhwwhs91hf[Hg] Comments:74 Oxygen delivery devices: Comment s:Nasal cannula 24-Apr-2025 10:00 Oxygen delivery devices: Comment s:Nasal cannula 24-Apr-2025 07:11 TEMP SGOPLPE65.6c Comments:36.6 Pulse68/min Comments:68 Respiratory Rate16/min Comments: 16 O2 SAT97% Comments:97 BP Dnllrhno238lv[Hg] Comments:15 8 BP Judlktdtx47uq[Hg] Comments:74 24-Apr-2025 03:12 TEMP TLSHONA00.2c Comments:37.2 Pulse79/min Comments:79 Respiratory Rate17/min Comments: 17 O2 SAT95% Comments:95 BP Swcnexjy848kv[Hg] Comments:17 3 BP Gdwbzzthi67wi[Hg] Comments:67 23-Apr-2025 21:30 Oxygen delivery devices: Comment s:Nasal cannula 23-Apr-2025 19:22 TEMP BESEYAE93.9c Comments:36.9 Pulse65/min Comments:65 Respiratory Rate17/min Comments: 17 O2 SAT96% Comments:96 BP Dmbouebr775cq[Hg] Comments:18 2 BP Zuowdhtoo14dg[Hg] Comments:72 23-Apr-2025 15:04 TEMP KYFLVTF41.5c Comments:36.5 Pulse77/min Comments:77 Respiratory Rate16/min Comments: 16 O2 SAT90% Comments:90 BP Wrkwnhtz648ks[Hg] Comments:18 3 BP Ueukshsle77hf[Hg] Comments:78 23-Apr-2025 08:00 Oxygen delivery devices: Comment s:Nasal cannula 23-Apr-2025 07:00 TEMP LESTVNP67.3c Comments:36.3 Pulse68/min Comments:68 Respiratory Rate16/min Comments: 16 O2 SAT94% Comments:94 BP Pfycoepf729kh[Hg] Comments:16 1 BP Rjwikjgig25qy[Hg] Comments:51 23-Apr-2025 06:00 Pulse70/min Comments:70 O2 SAT96% Comments:96 BP Emdjydnj465yv[Hg] Comments:18 9 BP Aesprlpll94dk[Hg] Comments:73 22-Apr-2025 23:41 Pulse65/min Comments:65 Respiratory Rate16/min Comments: 16 O2 SAT95% Comments:95 BP Lzoeeofs795sn[Hg] Comments:18 0 BP Jfaljvpbh89zb[Hg] Comments:58 22-Apr-2025 20:26 TEMP AZYYAXD42.9c Comments:36.9 Pulse68/min Comments:68 Respiratory Rate16/min Comments: 16 O2 SAT95% Comments:95 BP Idtejixl002sj[Hg] Comments:17 6 BP Itssynddt97gu[Hg] Comments:66 22-Apr-2025 20:00 Oxygen delivery devices: Comment s:Nasal cannula 22-Apr-2025 15:52 TEMP JOCRMYH87.4c Comments:36.4 Pulse66/min Comments:66 O2 SAT94% Comments:94 BP Tkrhhnpy148ww[Hg] Comments:18 6 BP Xhbcppyjj07ed[Hg] Comments:77 22-Apr-2025 15:30 Aurptarzehq26.6f Comments:98.6 Pulse69/min Comments:69 Respiratory Rate18/min Comments: 18 BP Hvxebggy946am[Hg] Comments:15 6 BP Uaauvxxxk42ok[Hg] Comments:46 Oxygen delivery devices: Comment s:Nasal cannula 22-Apr-2025 12:10 Shwhibxkhuk60.7f Comments:97.7 Respiratory Rate18/min Comments: 18 BP Cqzbxcmb524vb[Hg] Comments:20 0 BP Hofhcphyu331bx[Hg] Comments:1 00 Oxygen delivery devices: Comment s:Nasal cannula 22-Apr-2025 08:00 Oxygen delivery devices: Comment s:Nasal cannula 22-Apr-2025 07:00 TEMP RSDSDVJ32.2c Comments:36.2 Pulse70/min Comments:70 O2 SAT95% Comments:95 BP Jgbeprlg474km[Hg] Comments:18 9 BP Twtmwguyg59ry[Hg] Comments:76 22-Apr-2025 06:53 TEMP BPHJIES20.7c Comments:36.7 Pulse69/min Comments:69 O2 SAT91% Comments:91 BP Jynkbtzc085xj[Hg] Comments:11 8 BP Irdfyewmc83yb[Hg] Comments:44 22-Apr-2025 00:50 BP Uleppxfn827yj[Hg] Comments:16 5 BP Tlhwfmnos67ka[Hg] Comments:60 21-Apr-2025 21:32 Oxygen delivery devices: Comment s:Nasal cannula 21-Apr-2025 19:21 TEMP PWSJJNF68.6c Comments:36.6 Pulse71/min Comments:71 Respiratory Rate17/min Comments: 17 O2 SAT93% Comments:93 BP Pjumbfnz388ox[Hg] Comments:16 0 BP Wgveopjph52as[Hg] Comments:62 21-Apr-2025 14:34 TEMP QJLRRSE65.7c Comments:36.7 Pulse69/min Comments:69 Respiratory Rate16/min Comments: 16 O2 SAT90% Comments:90 BP Abevpkyk815jt[Hg] Comments:17 6 BP Boultsair27fe[Hg] Comments:69 21-Apr-2025 02:51 TEMP RESEAPN31.7c Comments:36.7 Pulse67/min Comments:67 Respiratory Rate17/min Comments: 17 O2 SAT91% Comments:91 BP Yvtsepdf458we[Hg] Comments:14 5 BP Atxaimlrw47tc[Hg] Comments:62 20-Apr-2025 20:21 TEMP JWWEDRX39.7c Comments:36.7 Pulse73/min Comments:73 Respiratory Rate18/min Comments: 18 O2 SAT94% Comments:94 BP Trtjtrza243eq[Hg] Comments:16 4 BP Jzhrpdbfp59ui[Hg] Comments:60 20-Apr-2025 19:53 Oxygen delivery devices: Comment s:Nasal cannula 20-Apr-2025 14:34 TEMP EYWBHLX31.8c Comments:36.8 Pulse71/min Comments:71 Respiratory Rate16/min Comments: 16 O2 SAT91% Comments:91 BP Uxalzsft360ey[Hg] Comments:15 4 BP Gwplftttv88to[Hg] Comments:74 20-Apr-2025 10:00 Oxygen delivery devices: Comment s:Nasal cannula 20-Apr-2025 06:44 TEMP NNMIAAN22.3c Comments:36.3 Pulse64/min Comments:64 Respiratory Rate16/min Comments: 16 O2 SAT92% Comments:92 BP Ywgqouag128rs[Hg] Comments:13 3 BP Usntjjtag18az[Hg] Comments:88 20-Apr-2025 02:20 TEMP OXAFWMT73.9c Comments:36.9 Pulse63/min Comments:63 O2 SAT94% Comments:94 BP Rdaqsgma034ye[Hg] Comments:12 5 BP Sshvjpjsi55ye[Hg] Comments:49 19-Apr-2025 21:42 Oxygen delivery devices: Comment s:Nasal cannula 19-Apr-2025 19:02 TEMP DAVFBMX00t Comments:37.0 Pulse69/min Comments:69 Respiratory Rate18/min Comments: 18 O2 SAT92% Comments:92 BP Yvddwinm640cb[Hg] Comments:11 7 BP Rzmkustso79ll[Hg] Comments:39 19-Apr-2025 15:34 BP Ocgmiory794hu[Hg] Comments:15 9 BP Szsjuiwkc46dl[Hg] Comments:51 19-Apr-2025 14:50 TEMP RYLSBBL23.4c Comments:36.4 Pulse63/min Comments:63 Respiratory Rate16/min Comments: 16 O2 SAT91% Comments:91 BP Qexvlzam733nn[Hg] Comments:14 2 BP Gmznruyvq26il[Hg] Comments:46 19-Apr-2025 14:15 Jughowisuen07.6f Comments:98.6 Pulse62/min Comments:62 Respiratory Rate18/min Comments: 18 BP Peyobbcw643oi[Hg] Comments:14 4 BP Qqvabqprn21sf[Hg] Comments:35 Oxygen delivery devices: Comment s:Nasal cannula 19-Apr-2025 08:40 Oxygen delivery devices: Comment s:Nasal cannula 19-Apr-2025 06:58 TEMP EYMNFHI64.4c Comments:36.4 Pulse68/min Comments:68 Respiratory Rate16/min Comments: 16 O2 SAT98% Comments:98 BP Obclampg448ru[Hg] Comments:16 3 BP Dzlpvamon73ve[Hg] Comments:69 19-Apr-2025 02:37 TEMP VZINSJN68.6c Comments:36.6 Pulse61/min Comments:61 O2 SAT93% Comments:93 BP Nvvskmpc911uc[Hg] Comments:15 1 BP Zyksemiqh11qm[Hg] Comments:53 18-Apr-2025 22:58 Oxygen delivery devices: Comment s:Nasal cannula 18-Apr-2025 19:37 TEMP GZBHCAX76.5c Comments:36.5 Pulse59/min Comments:59 Respiratory Rate19/min Comments: 19 O2 SAT92% Comments:92 BP Grgwjywi815iq[Hg] Comments:12 2 BP Wpvokjcqp57ym[Hg] Comments:50 18-Apr-2025 16:31 TEMP FJCNCZU11.2c Comments:36.2 Pulse60/min Comments:60 O2 SAT92% Comments:92 BP Pnphncyf136kt[Hg] Comments:13 7 BP Eqvxynnmx66xr[Hg] Comments:75 18-Apr-2025 10:00 Oxygen delivery devices: Comment s:Nasal cannula 18-Apr-2025 08:40 TEMP HNGDHLN84.4c Comments:36.4 Pulse59/min Comments:59 Respiratory Rate16/min Comments: 16 O2 SAT98% Comments:98 BP Aooemdeu791yb[Hg] Comments:13 2 BP Tlkvfsfdp58qe[Hg] Comments:53 18-Apr-2025 05:44 TEMP TPZSAPS03.4c Comments:36.4 Pulse58/min Comments:58 O2 SAT96% Comments:96 BP Cnenpgrw900mz[Hg] Comments:14 4 BP Qcjejpuot66bx[Hg] Comments:63 17-Apr-2025 23:43 TEMP YYMJIYX33.4c Comments:36.4 Pulse59/min Comments:59 Respiratory Rate18/min Comments: 18 BP Aiuscafs690zs[Hg] Comments:11 9 BP Uauvpdvmd59hk[Hg] Comments:48 17-Apr-2025 22:00 Oxygen delivery devices: Comment s:Nasal cannula 17-Apr-2025 19:12 TEMP VSAAICZ28.3c Comments:36.3 Pulse57/min Comments:57 Respiratory Rate18/min Comments: 18 O2 SAT97% Comments:97 BP Temrvjoz570gg[Hg] Comments:11 4 BP Ajlytkooe64oh[Hg] Comments:62 17-Apr-2025 15:08 Oxygen delivery devices: Comment s:Nasal cannula 17-Apr-2025 14:38 TEMP KQBVENZ75.4c Comments:36.4 Pulse53/min Comments:53 Respiratory Rate17/min Comments: 17 O2 SAT92% Comments:92 BP Irsxpaug917us[Hg] Comments:12 6 BP Xnsdumunv19oa[Hg] Comments:53 17-Apr-2025 10:55 Pulse53/min Comments:53 O2 SAT95% Comments:95 17-Apr-2025 10:50 Pulse53/min Comments:53 O2 SAT95% Comments:95 17-Apr-2025 10:44 Xhmurhqtyfb78.4f Comments:98.4 Pulse53/min Comments:53 Respiratory Rate18/min Comments: 18 O2 SAT95% Comments:95 BP Pbzmovmo565ua[Hg] Comments:14 1 BP Llmasumdg16jj[Hg] Comments:73 Oxygen delivery devices: Comment s:Nasal cannula [id number][ft_us] Comments: 5 Bjmvmf26.818kg Comments:56.818 17-Apr-2025 10:44 BMI19.6kg/m2 Comments:19.6 29-Aug-2024 16:11 Pulse61 Comments:61 BP Ukvvmnmt617on[Hg] Comments:16 9 BP Ifgswelfk40rw[Hg] Comments:71 29-Aug-2024 14:42 TEMP DOHPLCV73.6c Comments:36.6 Pulse60 Comments:60 O2 SAT93% Comments:93 BP Qipdafbv933wi[Hg] Comments:18 2 BP Cjhrrvwvv31le[Hg] Comments:75 29-Aug-2024 13:26 Khciniojhch52.4f Comments:98.4 Pulse74 Comments:74 Respiratory Rate15 Comments:15 BP Ojnkynpd526yv[Hg] Comments:13 5 BP Lifzphjzv24hv[Hg] Comments:65 29-Aug-2024 10:02 Oynknijlbai79l Comments:99.0 Pulse77 Comments:77 Respiratory Rate15 Comments:15 BP Plnqgqfc190xy[Hg] Comments:16 8 BP Egiurcccb06zv[Hg] Comments:78 29-Aug-2024 07:36 TEMP OCNPDHH38.9c Comments:36.9 Pulse60 Comments:60 O2 SAT87% Comments:87 BP Eawytaer169ye[Hg] Comments:18 8 BP Iawlpibiy70jv[Hg] Comments:70 29-Aug-2024 03:07 TEMP NRQEZBF18.1c Comments:37.1 Pulse59 Comments:59 Respiratory Rate14 Comments:14 O2 SAT91% Comments:91 BP Duvykafi052eh[Hg] Comments:15 8 BP Duizapurv21jq[Hg] Comments:60 28-Aug-2024 19:53 TEMP MEXOCVV22.7c Comments:36.7 Pulse57 Comments:57 Respiratory Rate15 Comments:15 O2 SAT91% Comments:91 BP Kkgzaqlm019if[Hg] Comments:16 7 BP Pawfyrebf16id[Hg] Comments:69 28-Aug-2024 14:47 TEMP YUCWNWB54.4c Comments:36.4 Pulse55 Comments:55 Respiratory Rate16 Comments:16 O2 SAT96% Comments:96 BP Kjwtjlrw192sy[Hg] Comments:14 8 BP Lwukdzucs08nw[Hg] Comments:62 28-Aug-2024 08:24 TEMP ABTNDDH11i Comments:37.0 Pulse62 Comments:62 Respiratory Rate16 Comments:16 O2 SAT92% Comments:92 BP Dnwdbapj021hn[Hg] Comments:17 3 BP Hvrapnrdr99db[Hg] Comments:82 28-Aug-2024 03:37 Pulse61 Comments:61 BP Ngkzpcds764nr[Hg] Comments:17 6 BP Dtkmfecwl89ta[Hg] Comments:72 28-Aug-2024 02:05 TEMP VTTFPFC42.9c Comments:36.9 Pulse64 Comments:64 Respiratory Rate18 Comments:18 O2 SAT95% Comments:95 BP Pgylkzkf649el[Hg] Comments:18 9 BP Crpvntzqb70dp[Hg] Comments:84 27-Aug-2024 22:50 TEMP ZOSWFDA57.9c Comments:36.9 Pulse62 Comments:62 Respiratory Rate18 Comments:18 O2 SAT94% Comments:94 BP Sqedxxvz151mo[Hg] Comments:17 8 BP Ikaqgxzeb24qs[Hg] Comments:75 27-Aug-2024 18:00 Pulse61 Comments:61 O2 SAT92% Comments:92 BP Ajxtfgjn324ak[Hg] Comments:17 9 BP Oixgbvtyb48eo[Hg] Comments:72 27-Aug-2024 17:46 BP Hncqyhmk963mz[Hg] Comments:18 8 BP Lqefpwbio74wh[Hg] Comments:82 27-Aug-2024 17:45 O2 SAT93% Comments:93 27-Aug-2024 17:40 Fjynycwivil64.6f Comments:98.6 Pulse87 Comments:87 Respiratory Rate16 Comments:16 O2 ADK233% Comments:100 BP Prugmjli692um[Hg] Comments:14 5 BP Nlxvkcpeg56kv[Hg] Comments:76 Height5.9416211[ft_us] Comments: 5 Nhuakq57.545kg Comments:54.545 27-Aug-2024 17:40 BMI20.6kg/m2 Comments:20.6 Encounters Inpatient encounter Encounter Reason:POST DIALYSIS THIS AM INCREASED WEAKNESS TODAY Encounter Diagnosis:813,Weakness,Unspecified severe protein-calorie malnutrition,End stage renal disease,Hypertensive heart and chronic kidney disease with heart failure and with stage 5 chronic kidney disease, or end stage renal disease,Cachexia,Body mass index (BMI) 19 or less, adult,Chronic respiratory failure with hypoxia,Pulmonary hypertension, unspecified,Hypokalemia,Anemia in chronic kidney disease,Hypothyroidism, unspecified,Type 2 diabetes mellitus with diabetic chronic kidney disease,Hyperlipidemia, unspecified,Volume depletion, unspecified,Major depressive disorder, single episode, unspecified,Chronic pain syndrome,Atherosclerotic heart disease of [place] coronary artery without angina pectoris,Heart failure, unspecified,COPD with asthma,Disorder of the skin and subcutaneous tissue, unspecified,Adult failure to thrive,Gastro-esophageal reflux disease without esophagitis,Dorsalgia, unspecified,Nicotine dependence, unspecified, uncomplicated,Bed confinement status,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 antithrombotics/antiplatelets,Hormone replacement therapy,Personal history of other malignant neoplasm of kidney,Acquired absence of other specified parts of digestive tract,Acquired absence of both cervix and uterus,Presence of aortocoronary bypass graft,Presence of coronary angioplasty implant and graft,Dependence on renal dialysis,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,Thrombocytopenia, unspecified 17-Apr-2025 13:[id number]-4903 16:38 [facility] Discharge Disposition:Discharged/transferred to assisted facility (SNF) MANAGEMENT [id number] [facility] [address] [place] [address] Case Management Report CONFIDENTIAL PATIENT INFORMATION ENCOUNTER DATA Patient Name: NASH LLANOS : [birth year]Account #: [id number] Date: 04/17/25 AGE: 54Attending Physician: Lesly Navarro MD ROOM: [address] -------HCM SUPPORT SERVICES --------HCM Support Services User Das:Discharge Disposition: SNF, Medicare Cert in anticipation of skilled careReturning Facility: N Date Entered: 04/18/2025Service Type: *Care CoordinationCase Worker: Tim Alves 2Worklist Date: 04/25/2025Payer: [employer] HMO POSComments:--- 04/24/2025 03:35 PM by Daniela Choe ---CM requested to speak w/ patient and her s/o, Joshua, .The s/o asked what her medical status is and if there was anything new.This CM advised the s/o that nursing would request a call back from thephysician.--- 04/24/2025 02:59 PM by Cecilia Vallejo ---pt to be transported with [facility] to [facility] 4pm today 04/24 RM# [id number].Charge nurse, Unit Sec, Nurse and patient informed of transport and inagreement.--- 04/24/2025 12:03 PM by Jeanette Ritter ---Called Deisy to set up first 3 dialysis rides from [facility] to [facility] starting 04/26. underwriting support specialist time between 4:35-5:05am. Pt page [phone] to get picked up when done, on will call currently.for 04/26 confirmation # [id number] 04/29 confirmation # [id number] 05/01 confirmation # [id number]--- 04/24/2025 10:35 AM by Cecilia Vallejo ---As per Rita at [facility]. shes andrebowen have auth today and she will let us knowroom assignment once a bed avail.Patient Name: NASH LLANOS 04/24/2025 08:50 AM by Cecilia Vallejo ---Uploaded Med Req, and left vm for Rita regarding insurance auth and bedavailability.--- 04/23/2025 01:39 PM by Daniela Choe ---New PT note uploaded.--- 04/23/2025 09:18 AM by Daniela Choe ---Per MDR, patient needs PT note. Last note was not completed.--- 04/21/2025 09:50 AM by Jeremy George ---PER NURSE - LIFE PARTNER STATES [facility] IS THE CHOICE FOR PATIENT'SSNF PLACEMENT. SNF NOTIFIED ABOUT CHOICE AND ASKED TO SUBMIT FOR INS AUTH. RNCM CODY UPDATED.--- 04/20/2025 03:42 PM by Jeremy George ---NO FAMILY VISITING. SW ATTEMPTED TO LEAVE A MESSAGE FOR SPOUSE BUT VOICE MAILIS FULL. INFORMATION ABOUT BOTH ACCEPTING RESIDENTIAL FACILITIES - [facility] AND [facility] LEFT IN PATIENT'S ROOM.--- 04/20/2025 12:02 PM by Alondra Donahue ---sent referral to [facility] where patient is active pernotes for awareness of dc plan to resume at dc--- 04/19/2025 05:22 PM by Daniela Choe ---Per hemodialysis charge nurse, Jerrod w/ [facility] spoke again with patient and family. Hospice wasdeclined again.The family agreed to SNF.--- 04/19/2025 03:51 PM by Daniela Choe ---Per RN, the patient's and/or s/o requested hospice services. He hasinformed the attending, also.HP was reconsulted.Message sent to Jerrod w/ [facility].--- 04/19/2025 09:30 AM by Daniela Choe ---SNF choice is pending.--- 04/18/2025 04:31 PM by Daniela Choe ---CM completed PASRR, uploaded to [employer], and hard copy to chart.--- 04/18/2025 12:49 PM by Daniela Choe ---Choice for Hospice signed electronically.--- 04/18/2025 12:41 PM by Daniela Choe ---SNF referral sent.--- 04/18/2025 12:40 PM by Daniela Choe ---Per Jerrod mercedes/ BLANCA, patient wants to continue w/ hemodialysis.No care center beds available.--- 04/18/2025 12:20 PM by Daniela Choe ---CM spoke with patient to complete initial assessment.CM role explained.Patient Name: NASH LLANOS is alert and oriented.Patient admitted for post dialysis this AM w/ increased weakness.Patient s primary contact is s/o, Joshua Kim, .POA is none.Pt does not have an adv dir/living will.The patient states if the patient were unable to make her own medicaldecisions, then the sons, Wade and Jeremy Perez, would be the decision-maker.No contact information provided for meredith.Facesheet demographics reviewed/verified; registration was not needed/notified.Patient resides with her s/o in a house with 5 steps to enter.Patient has the following DME: wheelchair.Patient is currently active with: [facility] for HD on MWF at 0530.HHC preference: none.SNF/IRF preference: none.Prior to hospitalization, pt was living with her s/o and was dependent with allADLs. Patient states she is bedbound and requires help w/bathing/dressing/toileting.Pt is able to obtain medications outpatient.Planned discharge transportation discussed with patient. She will require willtransport (unless medical transport is necessary).Current Discharge Plan: hospice care center or SNF.--- 04/18/2025 11:39 AM by Daniela Choe ---CM discussed hospice choice with patient.HPHospice referral sent.--- 04/18/2025 09:03 AM by Daniela Choe ---CM received consult for hospice.Choice list printed. Date Entered: 04/19/2025Service Type: Important Message from Medicare - IMCase Worker: Tim Alves 2Worklist Date: 04/24/2025Patient Name: NASH LLANOS : [employer] MEDICARE HMO POSComments:--- 04/24/2025 10:17 AM by Jeanette Ritter ---Spoke with pt, obtained IMM, signed electronically.--- 04/22/2025 10:47 AM by Jeanette Ritter ---Spoke with pt, obtained IMM, signed electronically.--- 04/19/2025 11:55 AM by Jeanette Ritter ---Spoke with pt, obtained IMM, signed electronically. Date Entered: 04/21/2025Service Type: Custodial Facility (SNF)Layout Artist: Daniela ChoeShira Date: 09/19/2005[facility] Date Entered: 04/24/2025Service Type: DialysisCase Worker: Irina Choe Date: 09/19/2005gency: [facility] ([id number] [address]E)Referral Status:Booked --HCM DISCHARGE PLANNING --------HCM Discharge Planning Comments: ---------HC M DISCHARGE PLANNING EVALUATION Shanel ase Workers: Akil Choe Status: Spouse-partnerSetting: Home- residenceADL Limits: Bathing Dressing Hygiene Mobility or ambulation ToiletingDME: WheelchairHCM Discharge Planning User Das:Community Services Prior to Admission: None or NACurrent Mental Status/Cognition: Alert and OrientedPatient Name: NASH LLANOS obtained from: PatientDischarge Barriers, select all that apply: None or NAReadmission (unplanned) in the last 30 days: NoPatient goals and preferences after discharge: SNFBased on information gathered, is it likely that the patient's care needs canbe met in the environment from which he/she entered the hospital?: NoProposed Discharge Plan, select one: FacilityFacility Type Needed: SNF-Custodial FacilityTransportation needs at discharge: yesDischarge Plan Discussed with: PatientHave you discussed with the patient how his/her care needs may change overtime?: Not ApplicablePatient/territory representative agrees with discharge plan: YesDiscussed expected insurance coverage and/or out of pocket expenses: NotApplicableDate / Time: 04/18/2025 12:13 PMEvaluated by: Daniela Choe =====Updated by: HIS DARRICK () - 04/30/2025 2:05 PM ==Patient Name: NASH LLANOS Inpatient encounter Encounter Reason:LOW PLT, HGB, K - SENT BY PCP Encounter Diagnosis:WEAKNESS,291,ACUTE ON CHRONIC DIASTOLIC (CONGESTIVE) HEART FAILURE,END STAGE RENAL DISEASE,OTHER PANCYTOPENIA,ACUTE POSTHEMORRHAGIC ANEMIA,CHRONIC OBSTRUCTIVE PULMONARY DISEASE W (ACUTE) EXACERBATION,HYPOKALEMIA,HYPOTHYROIDIS M, UNSPECIFIED,TYPE 2 DIABETES MELLITUS W DIABETIC CHRONIC KIDNEY DISEASE,TYPE 2 DIABETES MELLITUS WITH DIABETIC NEUROPATHY, UNSP,HYPERLIPIDEMIA, UNSPECIFIED,VOLUME DEPLETION, UNSPECIFIED,HYPERKALEMIA,NICOTINE DEPENDENCE, UNSPECIFIED, UNCOMPLICATED,CHRONIC PAIN SYNDROME,ATHSCL HEART DISEASE OF [place] CORONARY ARTERY W/O ANG PCTRS,PULMONARY HYPERTENSION, UNSPECIFIED,STRIKING AGAINST OTHER STATIONARY OBJECT, INITIAL ENCOUNTER,FAMILY HISTORY OF MALIGNANT NEOPLASM OF BREAST,FAMILY HISTORY OF MALIGNANT NEOPLASM OF ORGANS OR SYSTEMS,PERSONAL HISTORY OF OTHER MALIGNANT NEOPLASM OF KIDNEY,ALLERGY STATUS TO OTHER DRUG/MEDS/BIOL SUBST,ACQUIRED ABSENCE OF OTHER SPECIFIED PARTS OF DIGESTIVE TRACT,ACQUIRED ABSENCE OF BOTH CERVIX AND UTERUS,PRESENCE OF AORTOCORONARY BYPASS GRAFT,PRESENCE OF CORONARY ANGIOPLASTY IMPLANT AND GRAFT,DEPENDENCE ON RENAL DIALYSIS,PLANER CHAIN OFFBEARER (CURRENT) USE OF INSULIN,ENCOUNTER FOR SCREENING FOR COVID-19,HYP HRT & CHR KDNY DIS W HRT FAIL AND W STG 5 CHR KDNY/ESRD 28-Aug-2024 15:[id number] 18:11 [facility] Discharge Disposition:Discharged to home or self care (routine discharge) MANAGEMENT [id number] [facility] [address] [place] [address] Case Management Report CONFIDENTIAL PATIENT INFORMATION ENCOUNTER DATA Patient Name: NASH LLANOS : [birth year]Account #: [id number] Date: 08/28/24 AGE: 54Attending Physician: Lesly Navarro MD ROOM: [facility] -------[facility] SUPPORT SERVICES --------[facility] Support Services User Das: Date Entered: 08/28/2024Service Type: *Care CoordinationCase Worker: Keerthi Alves 4SWorklist Date: 08/30/2024ayer: JESI BARAHONA MEDICAREComments:--- 08/28/2024 01:06 PM by Sandhya Lee ---CM spoke with patient to complete initial assessment.CM role explained.Patient is: alert and oriented.Patient s primary contact is: Joshua Kim (life partner [phone])Pt does not have adv dir/living will. patient stated that she want her lifepartner (Joshua Kim) to make her medical decision in case she is not ableto make them.Face sheet demographics reviewed/verified;Patient resides with: life partner at one store unit home.Patient has the following DME: none.Patient is currently active with: noneHHC/SNF preference: nonePrior to hospitalization was: independent with adls.Pt is able to obtain medications outpatient.Planned discharge transportation discussed with the patient. will have a ridewith her life partner.Current Discharge Plan:Patient Name: NASH LLANOS plan home.This patient has been screened by case management for any potential dischargeneeds. At this time, no discharge needs identified. [facility] DISCHARGE PLANNING --------HCM Discharge Planning Comments: ---------HC M DISCHARGE PLANNING EVALUATION C anup Workers: Madhuri Hernandeziving Status: OtherSetting: Home- residenceADL Limits: None or n/aDME: NoneHCM Discharge Planning User Das:Community Services Prior to Admission: None or NACurrent Mental Status/Cognition: Alert and OrientedInformation obtained from: PatientDischarge Barriers, select all that apply: None or NAReadmission (unplanned) in the last 30 days: NoPatient goals and preferences after discharge: homeBased on information gathered, is it likely that the patient's care needs canbe met in the environment from which he/she entered the hospital?: YesProposed Discharge Plan, select one: HomeHome Services needed: None or Olesya a caregiver is needed, is there a caregiver available, willing and capableto provide care?: YesCommunity services needed: NoneNew DME required at discharge: None or NAPatient Name: NASH LLANOS new DME is required, is patient able to obtain DME?: YesHome Modifications required: None or Olesya home modifications are required, is patient able to obtain them?: YesPatient concerns about obtaining medications on day of discharge?: NoneTransportation needs at discharge: ride with BoyfriendDischarge Plan Discussed with: PatientHave you discussed with the patient how his/her care needs may change overtime?: YesPatient/territory representative agrees with discharge plan: YesDiscussed expected insurance coverage and/or out of pocket expenses: NoDate / Time: 08/28/2024 1:01 PMEvaluated by: Sandhya Hernandez ==Updated by: Faiza Weathers ([id number]) - 08/30/2024 10:45 AM ==Patient Name: NASH LLANOS Plan of Treatment Future Tests Future scheduled test information is unavailable Pending Tests Pending diagnostic test information is unavailable Future Visits Future appointment information is unavailable Referrals to Other Providers Reason for Referral Referral Start Date Provider Provider Contact Information Provider Address Chad Stewart MD Work Phone: [phone] [facility] [address] Chad Stewart MD Work Phone: [phone] [facility] [address] Hossein Oliveira MD Work Phone: [phone] [facility] Office - [address] [place] [address] Bradley Suero MD Work Phon e: [phone] [facility] [address] Silver almanza DO Work Phone: [phone] [place], [place] [id number] Silver Andrew almanza , DO Work Phone: [phone] [address] [address] [facility] [address] Your eye doctor Silver Urrutiacorky almanza , DO Work Phone: [phone] [address] [address] [facility] [address] Undefined Provider Future Procedures Future procedure information is unavailable Future Medications Future medication information is unavailable Patient Instructions Instruction Admit Date Pulmonary Edema April 17, 2025 9:26 am Thrombocytopenia April 17, 2025 9:26 am Hemodialysis April 17, 2025 9:26 am Platelets April 17, 2025 9:26 am Oxycodone/Acetaminophen Oral Tablet April 17, 2025 9:26am ED Pneumonia (Adult) December 09, 2023 3: 56am Blood Transfusion Adult November 23, 2023 3:38pm Kidney Failure Healthcare Team November 3:38pm Hemodialysis November 23, 2023 3:38 pm Hypokalemia Dc November 23, 2023 3:38 pm When You Have Pneumonia November 23, 2023 3:38pm Potassium November 23, 2023 3:38 pm Muscle Cramps and Spasms April 28 9:51am Abdominal Pain, Adult October 12, 2020 10:18pm Allergic Conjunctivitis, Adult July 25, 2020 5:08pm Cervical Radiculopathy, Mbqn-vg-Qnsz Gabino e 2019 12:44am Muscle Cramps and Spasms February 24, 2020 10:37am Chronic Pain, Adult February 24, 2020 10:37 am Goals Acute Goals Standards of Practice will b e met See Health Plan of Care See Health Plan of Care See Health Plan of Care See Health Plan of Care See Health Plan of Care See Health Plan of Care See Health Plan of Care See Health Plan of Care See Health Plan of Care See Health Plan of Care See Health Plan of Care See Health Plan of Care See Health Plan of Care See Health Plan of Care See Health Plan of Care See Health Plan of Care See Health Plan of Care See Health Plan of Care See Health Plan of Care See Health Plan of Care Assessments Diagnosis Onset Date Resolution Status Admit Date Pulmonary edema Active March 9:26am Thrombocytopenia Active March 9:26am ESRD needing dialysis Active Mar 9:26am
--- OUTSIDE RECORDS SUMMARY | 2025-06-01 15:48 | XMS_ITS | Encounter Summary ---
Author Organization [facility] Address [address] [place] [address] Care Team Providers Care Nursing Care Partner Name Role Phone Rosemarie Riley APRN Primary Care Provider [phone] Haydee Mccloud Unavailable Unavailable Reason for Referral * Consultation (Routine) - Authorized Specialty Diagnoses / Procedures Referred By Rebeca reynolds Referred To Contact Ophthalmology Diagnoses History of glaucoma Mayra Rogers MD [address] [place] [address] Phone: tel: fax: Referral ID Status Reason Start Date Expiration Date Visits Requested Visits Authorized [id number] Authorized Specialty Services Required 06/10/2025 12/10/2026 1 1 Scheduling Instructions Please schedule for history of neovascular glaucoma and vitreous hemorrhage of left eye * Consultation (Routine) - Authorized Specialty Diagnoses / Procedures Referred By Rebeca t Referred To Contact Cardiology Diagnoses Coronary artery disease involving coronary bypass graft of chitimacha heart without angina pectoris Chronic congestive heart failure, unspecified heart failure type Mayra Rogers MD [address] [place] [address] Phone: tel: fax: Referral ID Status Reason Start Date Expiration Date Visits Requested Visits Authorized [id number] Authorized Specialty Services Required 06/10/2025 12/10/2026 1 1 * Consultation (Routine) - Pending Review Specialty Diagnoses / Procedures Referred By Contac t Referred To Contact Pulmonology Diagnoses Acute hypoxic respiratory failure Chronic obstructive pulmonary disease with acute exacerbation (CMS/HCC) Mayra Rogers MD [address] [place] [address] Phone: tel: fax: [facility] [address] [place] [address] Phone: tel: fax: Referral ID Status Reason Start Date Expiration Date V isits Requested Visits Authorized [id number] Pending Review 06/10/2025 12/10/2026 1 1 * Consultation (Routine) - Authorized Specialty Diagnoses / Procedures Referred By Rebeca reynolds Referred To Contact Family Medicine Diagnoses End-stage renal disease needing dialysis (CMS/HCC) Severe protein-calorie malnutrition (CMS/HCC) Hypertension, unspecified type Hypothyroidism, unspecified type Hyperlipidemia, unspecified hyperlipidemia type Anemia, unspecified type Mood disorder (CMS/HCC) Mayra Rogers MD [address] [place] [phone] Phone: tel: fax: Referral ID Status Reason Start Date Expiration Date V isits Requested Visits Authorized [id number] Authorized 06/10/2025 12/10/2026 1 1 * Imaging (Routine) - Closed Specialty Diagnoses / Procedures Referred By Rebeca reynolds Referred To Contact Radiology Diagnoses ESRD (end stage renal disease) Unspecified complication of cardiac and vascular prosthetic device, implant and graft, subsequent encounter Procedures IR Angiogram ArterioVenous Shunt Medina Ferris MD [address] [address] Phone: tel: fax: Referral ID Status Reason Start Date Expiration Date Visits Re quested Visits Authorized [id number] Closed 05/13/2025 11/12/2026 1 1 * Home Health (Routine) - Authorized Specialty Diagnoses / Procedures Referred By Rebeca reynolds Referred To Contact Home Health Services Diagnoses Acute pulmonary edema (CMS/HCC) Mayra Rogers MD [address] [place] [address] Phone: tel: fax: Referral ID Status Reason Start Date Expiration Date Visits Requested Visits Authorized [id number] Authorized Specialty Services Required 06/04/2025 12/04/2026 999 999 Reason for Visit * Reason Comments Fistula problem * Auth/Cert (Routine) Specialty Diagnoses / Procedures Referred By Rebeca reynolds Referred To Contact Diagnoses Acute pulmonary edema (CMS/HCC) GI bleed End-stage renal disease needing dialysis (CMS/HCC) Mayra Rogers MD [address] [place] [address] Phone: tel: fax: [facility] [address] [place] [address] Phone: tel: Referral ID Status Reason Start Date Expiration Date Visits Re quested Visits Authorized [id number] 1 1 Encounter Details Date Type Department Care Team (Late st Contact Info) Description 06/01/2025 4:48 PM EDT - 06/10/2025 4:54 PM EDT Hospital Encounter [facility] [address] [place] [address] Faiza Garvin MD [address] [place] [phone] Senthil Carnes MD [address] [place] [phone] Neno Yancey MD [address] [place] [address] Mayra Rogers MD [address] [place] [phone] Acute pulmonary edema (CMS/HCC) (Primary Dx); End-stage [...] artery disease involving coronary bypass graft of chitimacha heart without angina pectoris; History of glaucoma; [...] and Family Not on file 06/25/2024 Attends [employer] Not on file 06/25 Active Member [...] any time in the past 12 m [facility], were you homeless or living in a halfway (including now)? No 06/03/2025 [facility] Utilities Answer Date Recorded In the [...] drink first t jacqueline in the morning (E[employer]OR[employer] POLICE OFFICER) to steady your nerves or to get [...] as of this encounter Miscellaneous Notes * Addendum Note - Chuyita Snyder - 06/10/2025 4:54 PM EDTEncounter addended by: Chuyita Snyder on: 07/03/2025 2:39 PM Actions taken: Utilization Review data saved * Addendum Note - Shelby Bagley RN - 06/10/2025 4:54 PM EDTEncounter addended by: Shelby Bagley RN on: 07/17/2025 9:37 AM Actions taken: Clinical Note Signed * Mayra Fuchs RN - 06/10/2025 2:59 PM EDT Images from the original note were not included. [address] Pulmonary Edema Your healthcare provider has told [...] ankle Last Reviewed Date: 2023 00:00:00 ?? [id number] [employer]. All rights reserved. This information is not [...] Note Mar Waldron 55 y.o. female CSN: [id number] Admission: 06/01/2025 4:48 PM Primary Problem: Acute hypoxic respiratory failure Primary Coal Washer Tender: Primary Caregiver: Family Assistance Available at Discharge: Current Outpatient/Agency/Support Group: outpatient hemodialysis Availability of Care Givers (#Hours): 24 hours (Family can provide 24/7 care- Patient lives with 2 adult sons and [id number]) Family/Coal Washer Tender(s) Willingness Assessed to care for patient at home: Yes Family/Coal Washer Tender(s) Readiness Assessed to care for patient [...] Notice Completed: 06/10/25 Time Second Notice Completed: 8368 Medicare Second Notice Recieved By: Wade (son), [...] family no longer wanting to go to [facility]. CM went to bedside and was informed that patient wanting to go home, family can provide 24/7 care as needed, and patient's PCP is currently working on getting home health set up for PT/OT. Denies any CM d/c needs at this time. Went over IMM letter with patient and family, they verbalized understanding. CM will send DC Summary To [facility]- Patient has current HD chair on MWF. CM updated [facility], no longer needing [facility]. CM went over that patient is only uses about 25% of patient effort with transfers. They stated that's better than when she came here, and can transfer patient and provide ride home without difficulty-denied any needs. CM will continue to follow until discharged. Addendum 2071: [facility] today and faxed DC Summary to f: [phone]. Rosemary Song * Discharge Summary - Bobby Rose MD - 06/10/2025 2:41 PM EDT Hospitalization Admit Date/Time: 06/01/2025 4:48 PM Admitting Attending: Mayra Rogers Discharge Date: 06/10/2025 Discharge Attending Physician: Mayra Rogers MD PCP name and Address: Rosemarie Riley, FINANCE AND ADMINISTRATION MANAGER [address] [place] [address] Referring provider name and address: No referring provider defined for this encounter. Chief Concern, Brief History of Present Illness, and Hospital Course Mar Waldron is a 55-year-old female appearing much older than stated age with past medical historyof and uric end-stage renal disease on intermittent hemodialysis (MWF at [facility]), undifferentiated renal mass, hypertension, reported COPD, coronary [...] to missed dialysis - Dialysis chair at [facility] on a MWF schedule [...] and management per PCP #CAD w/ prior MT with [facility] to mLAD with prior stenting [...] Chronic pain: Discharge with 7 days of [place] due to missing pain clinic appointment while [...] Your Medications These medications were sent to [facility] - [address] [address] aspirin 81 MG chewable tablet carvedilol 12.5 MG tablet hydrALAZINE 25 MG tablet levothyroxine 88 MCG tablet naloxone 4 mg/0.1 mL nasal spray oxyCODONE-acetaminophen 10-325 MG tablet Discharge Diagnosis Medical Problems Active and Resolved Hospital Problems Hospital ESRD (end stage renal disease) ([facility]) CHF (congestive heart failure) ([facility]) CAD (coronary artery disease) Anemia Severe protein-calorie malnutrition ([facility]) HTN (hypertension) HLD (hyperlipidemia) Hypothyroidism Mood disorder ([facility]) History of glaucoma Chronic obstructive pulmonary disease with acute exacerbation ([facility]) RESOLVED: Pleural effusion * (Principal) RESOLVED: Acute hypoxic respiratory failure RESOLVED: Acute pulmonary edema ([facility]) RESOLVED: GI bleed RESOLVED: Acute encephalopathy Post [...] Center 07/05/2025 1:00 PM Sobia Goldberg PA [facility] Test Results Pending At Discharge Pertinent [...] - 06/10/2025 1:22 PM EDT Diagnosis Code: 21906 Subjective: Patient seen and evaluated on HD. [...] patient/caregiver Intervention: Provide Person-Centered Care Flowsheets (Taken 06/10/2025399) Trust Relationship/Rapport: care explained emotional support provided [...] and Optimize Oral Intake Flowsheets (Taken 06/10/2025 040) Oral Nutrition Promotion: rest periods promoted Problem: Fall Injury Risk Goal: Absence of Fall and Fall-Related Injury Outcome: Ongoing, Progressing Intervention: Identify and Manage Contributors Flowsheets (Taken 06/10/2025 040) Medication Review/Management: medications reviewed Self-Care Promotion: independence encouraged BADL personal objects within reach * Progress Notes - Bobby Rose MD - 06/09/2025 10:36 AM EDT Images from the original note were not included. [facility] Medicine Progress Note Subjective Subjective Resting [...] (congestive heart failure) (CMS/HCC) Pleural effusion Acute pulmonary edema (CMS/HCC) GI bleed Mar Waldron is a 55 [...] after resuming dialysis - Dialysis chair at [facility] on a MWF schedule - Dry weight 59kg PLAN - Renvela 800 mg TID with meals - Nephrology managing MWF inpatient dialysis #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, Malnutrition, & Inability to Perform ADLs - PT/OT recommended subacute rehab: Referral sent to [facility] - Follow-up bed availability on Tuesday #CAD w/ prior MT with [facility] to mLAD with prior stenting [...] syndrome: daily CMP, Mg, phos monitoring - Reservoir Engineering Advisor following - Zack once daily, boost three [...] Rogers MD * Progress Notes - Nai Argueta SYSTEMS SOFTWARE DEVELOPER - 06/09/2025 8:24 AM EDT Physical Therapy Treatment Patient Name: Mar Waldron Today's Date: 06/09/2025 Total Treatment Time: 24 min PT Discharge Recommendations: Subacute rehab Equipment Recommended: Defer to facility Subjective The patient states, I am doing okay. Participants in Care Family/Caregiver Present: No Informatics Consultant: Not Applicable Presentation Oxygen: Supplemental oxygen Nasal [...] sequencing. Bed Mobility Exam: Rolling/Turning Level of Parmer: Minimum assist (75% patient effort) Physical/Nonphysical Assist: Additional assist utilized for safety, Verbal Cues, Set-up required Assistive Device: Bed rails, Other (drawsheet) Bed Mobility Exam: Scooting/Bridging Level of Parmer: Dependent (to scoot to edge of bed in sitting) Physical/Nonphysical Assist: Additional assist utilized for safety, Verbal Cues, Set-up required Assistive Device: Other (drawsheet) Bed Mobility Exam: Supine to Sit Level of Parmer: Maximum assist (25% patient's effort) Physical/Nonphysical Assist: Additional assist utilized for safety, HOB elevated, Verbal Cues, Set-up required Assistive Device: Other (drawsheet) Transfers Transfer Intervention: Verbal cues provided for correct bilateral hand and foot placement during sit to stand transfers. Transfer Exam: Sit to stand Level of Parmer: Maximum assist (25% patient's effort) Physical/Nonphysical Assist: Additional assist utilized for safety, Verbal Cues, Set-up required Assistive Device: Hand held assist Transfer Exam: Stand to Sit Level of Parmer: Maximum assist (25% patient's effort) Physical/Nonphysical Assist: Additional assist utilized for safety, Verbal Cues, Set-up required Assistive Device: Hand held assist Transfer Exam: Bed to Chair/Chair to Bed Level of Parmer: Maximum assist (25% patient's effort) Physical/Nonphysical Assist: [...] a.m. Participants in Care Family/Caregiver Present: No Informatics Consultant: Not Applicable Presentation Oxygen Therapy: Supplemental oxygen [...] Mobility Bed Mobility Exam: Rolling/Turning Level of Parmer: Minimum assist (75% patient effort) Physical/Nonphysical Assist: Additional assist utilized for safety, Verbal Cues, Set-up required Bed Mobility Exam: Scooting/Bridging Level of Parmer: Dependent Physical/Nonphysical Assist: Additional assist utilized for safety, Verbal Cues, Set-up required Bed Mobility Exam: Supine to Sit Level of Parmer: Maximum assist (25% patient's effort) Physical/Nonphysical Assist: Additional assist utilized for safety, HOB elevated, Verbal Cues, Set-up required Bed Mobility Exam: Sit to Supine Level of Parmer: Maximum assist (25% patient's effort) Physical/Nonphysical Assist: Additional assist utilized for safety Transfers Transfer Exam: Sit to stand Level of Parmer: Maximum assist (25% patient's effort) Physical/Nonphysical Assist: Additional assist utilized for safety, Verbal Cues, Set-up required Assistive Device: Hand held assist Transfer Exam: Stand to Sit Level of Parmer: Maximum assist (25% patient's effort) Physical/Nonphysical Assist: Additional assist utilized for safety, Verbal Cues, Set-up required Assistive Device: Hand held assist Transfer Exam: Bed to Chair/Chair to Bed Level of Parmer: Maximum assist (25% patient's effort) Physical/Nonphysical Assist: [...] Continue OT tx plan until discharge to [facility] setting. Goals OT GOAL DETAILS Goal Established [...] needed. 06/02/25 2 weeks Written by Jigar iMller on 06/09/25 at 2:27 PM. * Care Plan - Hazel Pham RN - 06/09/2025 8:15 AM EDT Patient family requesting update about patient possible discharge to subacute rehab. Jeremy Perez [phone] Patient states that she has lost her [...] Pham RN Outcome: Ongoing, Progressing Flowsheets (Taken 06/09/2025809) Patient/Family-Specific Goals (Include Timeframe): Patient will remain [...] Hazel Pham RN Flowsheets (Taken 06/09/2025 08) Body Position: turned right Skin Protection: skin [...] Hazel Pham RN Flowsheets (Taken 06/09/2025 08) Infection Prevention: cohorting utilized hand hygiene promoted 06/08/20252112 by Hazel Pham RN Flowsheets (Taken 06/08/2025 08) Infection Prevention: cohorting utilized hand hygiene promoted Goal: Optimal Comfort and Wellbeing 06/09/2025812 by Hazel Pham RN Outcome: Ongoing, Progressing 06/08/20252112 by aHzel Pham RN Outcome: Ongoing, Progressing Intervention: Monitor Pain and Promote Comfort 06/09/2025812 by Hazel Pham RN Flowsheets (Taken 06/09/2025 08) Pain Management Interventions: medication (see MAR) [id number] dosing utilized awakened for pain meds per patient request ambulation/increased activity breathing exercises care clustered 06/08/20252112 by Hazel Pham RN Flowsheets (Taken 06/08/2025 1629) Pain Management Interventions: medication (see MAR) [id number]-[id number] dosing utilized awakened for pain meds per patient request care clustered diversional activity provided emotional support Intervention: Provide Person-Centered Care 06/09/2025812 by Hazel Pham RN Flowsheets (Taken 06/09/2025 08) Trust Relationship/Rapport: care explained choices provided emotional support provided empathic listening provided questions answered questions encouraged reassurance provided thoughts/feelings acknowledged 06/08/20252112 by Hazel Pham RN Flowsheets (Taken 06/08/2025 08) Trust Relationship/Rapport: care explained choices provided emotional [...] of Bed (HOB) Positioning: HOB elevated Taken 06/09/2025 0800 Activity Management: activity adjusted [...] activity adjusted per tolerance activity encouraged Taken 06/08/2025 08 Pressure Reduction Techniques: weight shift assistance provided frequent weight shift encouraged Pressure Reduction Devices: alternating pressure pump (DIGNA) chair cushion utilized heel offloading device utilized positioning supports utilized pressure-redistributing mattress utilized Skin Protection: skin sealant/moisture barrier applied Intervention: Promote and Optimize Oral Intake 06/09/2025812 by Hazel Pham RN Flowsheets (Taken 06/09/2025 08) Oral Nutrition Promotion: rest periods promoted social interaction promoted calorie-dense foods provided calorie-dense liquids provided Nutrition Interventions: food preferences provided 06/08/20252112 by Hazel Pham RN Flowsheets (Taken 06/08/2025 08) Oral Nutrition Promotion: rest periods promoted social interaction promoted calorie-dense foods provided calorie-dense liquids provided Nutrition Interventions: food preferences provided Problem: Fall Injury Risk Goal: Absence of Fall and Fall-Related Injury 06/09/2025812 by Hazel Pham RN Outcome: Ongoing, Progressing 06/08/20252112 by Hazel Pham RN Outcome: Ongoing, Progressing Intervention: Identify and Manage Contributors 06/09/2025812 by Hazel Pham RN Flowsheets Taken 06/09/2025799 Medication Review/Management: medications reviewed provider consulted Taken [...] Devices: in use pillows repositioning sheet Taken 06/09/2025799 Activity Management: activity adjusted per [...] Goal: Absence of Infection Signs and Symptoms 06/09/2025 0813 by Hazel Pham RN Outcome: Ongoing, Progressing 06/08/20252112 by Hazel Pham RN Outcome: Ongoing, Progressing Intervention: Prevent or Manage Infection Flowsheets (Taken 06/08/2025 0800) Infection Management: aseptic technique maintained Fever Reduction/Comfort Measures: lightweight bedding Infection Prevention: cohorting utilized hand hygiene promoted * Care Plan - Aranza Santos RN - 06/09/2025 3:39 AM EDT Problem: Adult Inpatient Plan of Care Goal: Plan of Care Review Flowsheets (Taken 06/09/2025331) Progress: no change Plan of Care Reviewed [...] Intervention: Optimize Oxygenation and Ventilation Flowsheets (Taken 06/09/2025 033) Airway/Ventilation Management: oxygen therapy provided airway patency [...] Goal (Individualized) Outcome: Ongoing, Progressing Flowsheets (Taken 06/08/2025 1600) Patient/Family-Specific Goals (Include Timeframe): patient will remain free from injury during shift Individualized Care Needs: safety and comfort Anxieties, Fears or Concerns: none expressed Goal: Absence of Hospital-Acquired Illness or Injury Outcome: Ongoing, Progressing Aseptic technique promoted. Intervention: Identify and Manage Fall Risk Flowsheets (Taken 06/08/2025 1600) Safety Promotion/Fall Prevention: activity supervised Intervention: Prevent Skin Injury Flowsheets Taken 06/08/2025 1600 Body Position: turned right Taken 06/08/2025 0800 Skin Protection: skin sealant/moisture barrier applied Intervention: [...] 1629) Pain Management Interventions: medication (see MAR) egmxzv-[id number]-wejvh dosing utilized awakened for pain meds per [...] Progressing Intervention: Optimize Blood Flow Flowsheets (Taken 06/08/2025799) Stabilization Measures: legs elevated Goal: Absence of [...] Active Problems: ESRD (end stage renal disease) ([facility]) CHF (congestive heart failure) ([facility]) Pleural effusion Acute pulmonary edema ([facility]) GI bleed Mar Waldron is a 55 [...] after resuming dialysis - Dialysis chair at [facility] on a MWF schedule - Dry weight 59kg PLAN - Renvela 800 mg TID with meals - Hold other scheduled dialysis medications at this time - Nephrology following #Chronic anemia and thrombocytopenia - Anemia and thrombocytopenia better explained by ESRD PLAN - Further workup outpatient, possible need for [facility] in the futur #CAD w/ prior MT with [facility] to mLAD with prior stenting [...] Malnutrition - High Risk for Refeeding - Reservoir Engineering Advisor following - Zack once daily, boost three times a day #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, Malnutrition, & Inability to Perform ADLs - PT/OT recommended subacute rehab: Referral sent to [facility] #Stage 3 Pressure Ulcer - Wound care [...] Note Mar Waldron 55 y.o. female CSN: [id number] Admission: 06/01/2025 4:48 PM Primary Problem: Acute hypoxic respiratory failure SW received hand off to follow up on referral with [facility] [phone] 104. SW left for call back. SW will update when call back is received. Mayra Brody SUPERINTENDENT OVERHEAD DISTRIBUTION, AUTOMATED LOGISTICS SPECIALIST Case Management * Care Plan - Aranza Santos RN - 06/08/2025 4:53 AM EDT Problem: Adult Inpatient Plan of Care Goal: Plan of Care Review Flowsheets (Taken 06/08/2025448) Progress: no change Plan of Care Reviewed [...] Intervention: Optimize Oxygenation and Ventilation Flowsheets (Taken 06/08/2025 0449) Airway/Ventilation Management: oxygen therapy provided Head of Bed (HOB) Positioning: HOB elevated Problem: Mobility Impairment Goal: Optimal Mobility Intervention: Optimize Mobility Flowsheets (Taken 06/08/2025 0449) Activity Management: activity adjusted per tolerance Assistive [...] VTE (Venous Thromboembolism) Risk Flowsheets (Taken 06/07/2025 110) VTE Prevention/Management: bilateral SCDs (sequential compression devices) on Intervention: Prevent Infection Flowsheets (Taken 06/07/2025 110) Infection Prevention: hand hygiene promoted Problem: Skin Injury Risk Increased Goal: Skin Health and Integrity Intervention: Optimize Skin Protection Flowsheets (Taken 06/07/2025 1102) Activity Management: activity adjusted per tolerance activity encouraged Head of Bed (HOB) Positioning: HOB at 20 degrees Intervention: Promote and Optimize Oral Intake Flowsheets (Taken 06/07/2025 110) Nutrition Interventions: food preferences provided Problem: Fall [...] Optimize Oxygenation and Ventilation Flowsheets (Taken 06/07/2025 110) Airway/Ventilation Management: oxygen therapy provided Head of [...] Intervention: Optimize Blood Flow Flowsheets (Taken 06/07/2025 1102) Stabilization Measures: legs elevated Goal: Absence of Infection Signs and Symptoms Intervention: Prevent or Manage Infection Flowsheets (Taken 06/07/2025 1102) Infection Management: aseptic technique maintained Fever Reduction/Comfort Measures: lightweight bedding Infection Prevention: hand hygiene promoted * Consults - Sobia Russo RD - 06/07/2025 9:07 AM EDT Adult Nutrition Evaluation Note Mar Waldron 55 y.o. 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 Pt son recently moved her from [place] to [place] d/ concerns of overall health and well-being: weight [...] Supplemental oxygen O2 Delivery Method: Nasal cannula Pippa Coma Scale Score: 14 Ranjeet Scale Score: [...] (Calculated): 20.82 Weight Evaluation: Normal (BMI 18.5-24.9) [place] Body Weight (kg): 61.3 Percent [place] Body Weight: 97 Estimated Needs: Metabolic Cart Study Results: Current Nutrition Intake: Diet Supplements: None Diet Order: Adult Diet Diet Texture: Regular Electrolyte Restriction: Renal Percent Meals Eaten (%): None recorded to review Diet Experience and Nutrition History: Diet Education Provided: Will monitor Pertinent home medications: atorvastatin, calcitriol, levothyroxine, protonix Christian needs: Nutrition Focused Physical Exam: Unable to [...] - Wound healing/improvement Acuity Level: 3 Sobia Russo, BRENDA, LD [1] Past Medical History: Diagnosis Date Arthritis CHF (congestive heart failure) ([facility]/HCC) Chronic renal failure Coronary artery disease Diabetes mellitus ([facility]/HCC) HTN (hypertension) Hypothyroidism Renal cancer ([facility]/HCC) [2] Past Surgical History: Procedure Laterality Date [...] Jones MD - 06/07/2025 8:52 AM EDT Nephrology Progress Note Patient: Mar [...] HLD, and HFpEF who was admitted to [facility] on 06/02 for concerns of thrombosed fistula. Outpatient HD: - Schedule: MWF - Dialysis Unit: [facility] - Outpatient Glassware Engraver: Dr. Summers - Residual renal functions: Minimal [...] Jenae Jones MD Nephrology Fellow PGY-5 Page: [phone] [1] Patient Active Problem List Diagnosis Volume overload ESRD (end stage renal disease) (CMS/HCC) CHF (congestive heart failure) ([facility]) Pleural effusion Acute hypoxic respiratory failure Acute pulmonary edema ([facility]) GI bleed [2] amLODIPine, 5 mg, Oral, [...] Care Review Outcome: Ongoing, Progressing Flowsheets (Taken 06/07/2025721) Progress: no change Plan of Care Reviewed [...] Dulcolax later. Stillwants subacute rehab placement at [facility]. Objective Objective Last Recorded Vitals Blood pressure [...] Active Problems: ESRD (end stage renal disease) ([facility]) CHF (congestive heart failure) ([facility] Pleural effusion Acute pulmonary edema ([facility]) GI bleed Mar Waldron is a 55 [...] to missed dialysis - Dialysis chair at [facility] on a MWF schedule [...] #CAD w/ prior stenting - Hx of MT with COSME to mLAD, distant - Home [...] Malnutrition - High Risk for Refeeding - Reservoir Engineering Advisor following - Zack once daily, boost three times a day #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, Malnutrition, & Inability to Perform ADLs - PT/OT recommended subacute rehab: Referral sent to [facility] #Stage 3 Pressure Ulcer - Wound care [...] stop tx and will try again tomorrow. Contactedwisabine RN and explained the situation and care of infiltrated HD accesses. * Progress Notes - Sobia Jeffers RN - 06/06/2025 1:25 PM EDT Patient receiving HD today and tomorrow; Cm sent referral to [facility]; facility reviewing/ awaiting response. CM will continue to [...] (Individualized) Outcome: Ongoing, Progressing Flowsheets (Taken 06/06/2025 1139) Patient/Family-Specific Goals (Include Timeframe): patient will remain free from falls during the shift Goal: Absence of Hospital-Acquired Illness or Injury Outcome: Ongoing, Progressing Intervention: Identify and Manage Fall Risk Flowsheets (Taken 06/06/2025 113) Safety Promotion/Fall Prevention: safety round/check completed Goal: Optimal Comfort and Wellbeing Outcome: Ongoing, Progressing Intervention: Monitor Pain and Promote Comfort Flowsheets (Taken 06/06/2025 1139) Pain Management Interventions: pillow support provided Problem: Skin Injury Risk Increased Goal: Skin Health and Integrity Outcome: Ongoing, Progressing Intervention: Optimize Skin Protection Flowsheets (Taken 06/06/2025 1139) Activity Management: activity encouraged Head of Bed [...] Prevent or Manage Infection Flowsheets (Taken 06/06/2025 1139) Fever Reduction/Comfort Measures: lightweight bedding Infection Prevention: rest/sleep promoted * Progress Notes - Jenae Jones MD - 06/06/2025 9:48 AM EDT [facility] Progress Note Patient: [...] HLD, and HFpEF who was admitted to [facility] on 06/02 for concerns of thrombosed fistula. Outpatient HD: - Schedule: MWF - Dialysis Unit: [facility] - Outpatient Glassware Engraver: Dr. Summers - Residual renal functions: Minimal [...] Jenae Jones MD Nephrology Fellow PGY-5 Page: [phone] [1] Patient Active Problem List Diagnosis Volume [...] from the original note were not included. [facility] Medicine Progress Note Subjective Subjective Hypertensive [...] Active Problems: ESRD (end stage renal disease) ([facility]) CHF (congestive heart failure) ([facility]) Pleural effusion Acute pulmonary edema ([facility]) GI bleed Mar Waldron is a 55 [...] to missed dialysis - Dialysis chair at [facility] on a MWF schedule [...] need for UMESH #CAD - Hx of MT with COSME to mLAD, distant - Home [...] Malnutrition - High Risk for Refeeding - Reservoir Engineering Advisor consulted #Adult Failure To Thrive with Weight [...] Care Review Outcome: Ongoing, Progressing Flowsheets (Taken 06/06/2025 0354) Progress: no change Outcome Evaluation: Patient will [...] and Manage Fall Risk Flowsheets (Taken 06/06/2025 035) Safety Promotion/Fall Prevention: activity supervised assistive device/personal items within reach clutter-free environment maintained fall prevention program maintained lighting adjusted room organization consistent safety round/check completed Intervention: Prevent Skin Injury Flowsheets (Taken 06/06/2025 035) Body Position: left side-lying Skin Protection: incontinence pads utilized Intervention: Prevent and Manage VTE (Venous Thromboembolism) Risk Flowsheets (Taken 06/06/2025 035) VTE Prevention/Management: SCDs (sequential compression devices) off medication Intervention: Prevent Infection Flowsheets (Taken 06/06/2025 035) Infection Prevention: rest/sleep promoted single patient room provided hand hygiene promoted Goal: Optimal Comfort and Wellbeing Outcome: Ongoing, Progressing Intervention: Monitor Pain and Promote Comfort Flowsheets (Taken 06/06/2025353) Pain Management Interventions: quiet environment facilitated relaxation techniques promoted pillow support provided position adjusted Intervention: Provide Person-Centered Care Flowsheets (Taken 06/06/2025 035) Trust Relationship/Rapport: care explained choices provided emotional support provided empathic listening provided Problem: Skin Injury Risk Increased Goal: Skin Health and Integrity Outcome: Ongoing, Progressing Intervention: Optimize Skin Protection Flowsheets (Taken 06/06/2025 035) Activity Management: activity adjusted per tolerance Pressure Reduction Techniques: frequent weight shift encouraged weight shift assistance provided positioned off wounds Pressure Reduction Devices: positioning supports utilized Skin Protection: incontinence pads utilized Head of Bed (HOB) Positioning: HOB elevated Intervention: Promote and Optimize Oral Intake Flowsheets (Taken 06/06/2025 0354) Oral Nutrition Promotion: rest periods promoted social interaction promoted Nutrition Interventions: meals from home/family encouraged meal set-up provided Problem: Fall Injury Risk Goal: Absence of Fall and Fall-Related Injury Outcome: Ongoing, Progressing Intervention: Identify and Manage Contributors Flowsheets (Taken 06/06/2025 0354) Medication Review/Management: medications reviewed Self-Care Promotion: independence encouraged BADL personal objects within reach Intervention: Promote Injury-Free Environment Flowsheets (Taken 06/06/2025 035) Safety Promotion/Fall Prevention: activity supervised assistive device/personal items within reach clutter-free environment maintained fall prevention program maintained lighting adjusted room organization consistent safety round/check completed Problem: Gas Exchange Impaired Goal: Optimal Gas Exchange Outcome: Ongoing, Progressing Intervention: Optimize Oxygenation and Ventilation Flowsheets (Taken 06/06/2025 035) Airway/Ventilation Management: oxygen therapy provided Head of Bed (HOB) Positioning: HOB elevated Problem: Mobility Impairment Goal: Optimal Mobility Outcome: Ongoing, Progressing Intervention: Optimize Mobility Flowsheets (Taken 06/06/2025 035) Activity Management: activity adjusted per tolerance Assistive Device Utilized: standard walker Positioning/Transfer Devices: pillows repositioning sheet Problem: Hemodialysis Goal: Safe, Effective Therapy Delivery Outcome: Ongoing, Progressing Intervention: Optimize Device Care and Function Flowsheets (Taken 06/06/2025 035) Medication Review/Management: medications reviewed Goal: Effective Tissue Perfusion Outcome: Ongoing, Progressing Intervention: Optimize Blood Flow Flowsheets (Taken 06/06/2025 035) Stabilization Measures: legs elevated Goal: Absence of [...] Review Outcome: Ongoing, Not Progressing Flowsheets (Taken 06/05/2025 3412) Outcome Evaluation: Patient will remain free from [...] utilized Skin Protection: incontinence pads utilized Taken 06/05/2025 0830 Head of Bed (HOB) Positioning: HOB elevated [...] Promotion: independence encouraged BADL personal objects within [facility] Intervention: Promote Injury-Free Environment Flowsheets (Taken 06/05/2025 0830) Safety Promotion/Fall Prevention: [...] pt was not appropriate for education. Left [facility]'s Renal Nutrition handouts at bedside for family. [...] Active Problems: ESRD (end stage renal disease) ([facility]) CHF (congestive heart failure) ([facility]) Pleural effusion Acute pulmonary edema ([facility]) GI bleed Mar Waldron is a 55 y.o. female admitted for acute hypoxic respiratory failure This condition poses an acute threat to life/bodily function. 06/05/25: Patient remains comfortable and stable on 2 L nasal cannula in setting of acute hypoxic respiratory failure. Successful angiogram with declot of left upper extremity fistula; dialyze yesterday. Subacute rehab referral sent to [facility] in [facility]. Plan for dialysis 06/06 and 06/07; anticipate [...] to missed dialysis - Dialysis chair at [facility] on a MWF schedule [...] Further workup outpatient #CAD - Hx of MT with COSME to mLAD, distant - Home [...] Malnutrition - High Risk for Refeeding - Reservoir Engineering Advisor consult #Adult Failure To Thrive with Weight [...] family request, Subacute rehab referral sent to [facility] for review. x [phone] . CM will continue to follow. * Progress Notes - Priscila Naranjo - 06/05/2025 11:33 AM EDT Occupational Therapy Treatment Patient Name: Mar Waldron Today's Date: 06/05/2025 OT Discharge Recommendations: Subacute rehab Equipment Recommended: Defer to facility Subjective Pt receptive to therapy presence. Reports feeling sleepy. Participants in Care Family/Caregiver Present: No Informatics Consultant: Not Applicable Presentation Oxygen Therapy: Supplemental oxygen [...] Mobility Bed Mobility Exam: Scooting/Bridging Level of Parmer: Dependent (scoot to EOB in sitting) Physical/Nonphysical Assist: Verbal Cues, Minimal cues, Additional assist utilized for safety Bed Mobility Exam: Supine to Sit Level of Parmer: Maximum assist (25% patient's effort) Physical/Nonphysical Assist: Set-up required, Verbal Cues, Moderate cues, HOB elevated, Additional assist utilized for safety Transfers Transfer Interventions: Patient currently unable to perform transfers, endorsed not being able to stand at baseline and needing assistance to transfer to wheelchair. Transfer Exam: Sit to stand Level of Parmer: Maximum assist (25% patient's effort) Physical/Nonphysical Assist: Verbal Cues, Nonverbal cues (demo/gestures), Additional assist utilized for safety Assistive Device: Hand held assist Transfer Exam: Stand to Sit Level of Parmer: Maximum assist (25% patient's effort) Physical/Nonphysical Assist: Verbal Cues, Nonverbal cues (demo/gestures), Set-up required Assistive Device: Hand held assist Transfer Exam: Bed to Chair/Chair to Bed Level of Parmer: Dependent Physical/Nonphysical Assist: Verbal Cues, Nonverbal cues [...] go out except for doctor appointments) Mobility [place] Assist with wheelchair propulsion History of Falls [...] session. PARTICIPANTS IN CARE Visitors Present No, Informatics Consultant (if applicable) OBJECTIVE PAIN Pt denies pain. [...] at session concusion. BED MOBILITY Level of Parmer Physical/Non- physical Assist Adaptive Equipment Utilized Rolling/ [...] to return to sitting. TRANSFERS Level of Parmer Physical/Non- physical Assist Adaptive Equipment Utilized Sit [...] assistance. Standardized Assessments Standardized Assessments Standardized Assessments: [facility] 6-Clicks Mobility Assessment [facility] 6-Clicks Mobility Assessment Difficulty patient has turning [...] climbing 3-5 steps with a railing?: Unable [facility] 6-Clicks Mobility Assessment Total : 10 ASSESSMENT [...] Jones MD - 06/05/2025 10:04 AM EDT Nephrology Progress Note Patient: Mar [...] HLD, and HFpEF who was admitted to [facility] on 06/02 for concerns of thrombosed fistula. Outpatient HD: - Schedule: MWF - Dialysis Unit: [facility] - Outpatient Glassware Engraver: Dr. Summers - Residual renal functions: Minimal [...] Jenae Jones MD Nephrology Fellow PGY-5 Page: [phone] [1] Patient Active Problem List Diagnosis Volume overload ESRD (end stage renal disease) (CMS/HCC) CHF (congestive heart failure) ([facility]) Pleural effusion Acute hypoxic respiratory failure Acute pulmonary edema ([facility]/HCC) GI bleed [2] aspirin, 81 mg, Oral, [...] Care Review Outcome: Ongoing, Progressing Flowsheets (Taken 06/05/2025323) Progress: no change Outcome Evaluation: Patient will [...] Intervention: Optimize Oxygenation and Ventilation Flowsheets (Taken 06/05/2025323) Airway/Ventilation Management: oxygen therapy provided Head of Bed (HOB) Positioning: HOB elevated Problem: Mobility Impairment Goal: Optimal Mobility Outcome: Ongoing, Progressing Intervention: Optimize Mobility Flowsheets (Taken 06/05/2025323) Activity Management: activity adjusted per tolerance Positioning/Transfer Devices: pillows repositioning sheet Problem: Hemodialysis Goal: Safe, Effective Therapy Delivery Outcome: Ongoing, Progressing Intervention: Optimize Device Care and Function Flowsheets (Taken 06/05/2025323) Medication Review/Management: medications reviewed Goal: Effective Tissue Perfusion Outcome: Ongoing, Progressing Intervention: Optimize Blood Flow Flowsheets (Taken 06/05/2025323) Stabilization Measures: legs elevated Goal: Absence of Infection Signs and Symptoms Outcome: Ongoing, Progressing Intervention: Prevent or Manage Infection Flowsheets (Taken 06/05/2025323) Infection Management: aseptic technique maintained Fever Reduction/Comfort [...] Care Review Outcome: Ongoing, Progressing Flowsheets (Taken 06/04/20251724) Progress: no change Plan of Care Reviewed With: patient Goal: Patient-Specific Goal (Individualized) Outcome: Ongoing, Progressing Flowsheets (Taken 06/04/20251699) Patient/Family-Specific Goals (Include Timeframe): Patient will remain free from falls/injury during this shift. Individualized Care Needs: safety Anxieties, Fears or Concerns: none stated Goal: Absence of Hospital-Acquired Illness or Injury Outcome: Ongoing, Progressing Intervention: Identify and Manage Fall Risk Flowsheets (Taken 06/04/20251699) Safety Promotion/Fall Prevention: activity supervised assistive device/personal items within reach clutter-free environment maintained fall prevention program maintained nonskid shoes/slippers when out of bed room organization consistent safety round/check completed Intervention: Prevent Skin Injury Flowsheets (Taken 06/04/20251699) Body Position: turned Goal: Optimal Comfort and Wellbeing Outcome: Ongoing, Progressing Intervention: Provide Person-Centered Care Flowsheets (Taken 06/04/20251724) Trust Relationship/Rapport: care explained choices provided emotional [...] Intervention: Identify and Manage Contributors Flowsheets (Taken 06/04/20251724) Medication Review/Management: medications reviewed Self-Care Promotion: independence [...] Airway/Ventilation Management: oxygen therapy provided Taken 06/04/2025 1700 Head of Bed (HOB) Positioning: HOB elevated [...] Prevent or Manage Infection Flowsheets (Taken 06/04/2025 172) Fever Reduction/Comfort Measures: lightweight bedding Infection Prevention: [...] Active Problems: ESRD (end stage renal disease) ([facility]) CHF (congestive heart failure) ([facility]/HCC) Pleural effusion Acute pulmonary edema ([facility]/HCC) GI bleed Mar Waldron is a 55 [...] [facility], [facility] sent [facility]. #Acute hypoxic respiratory failure likely due to [...] dialysis #Anion Gap - Dialysis chair at [facility] on a MWF schedule [...] symptoms of bleeding #CAD - Hx of MT with COSME to mLAD, distant - Home [...] Malnutrition - High Risk for Refeeding - Reservoir Engineering Advisor consult #Adult Failure To Thrive with Weight [...] been discussed with the patient and/or their denial management representative. All questions answered and they agree to proceed. [1] Social History Tobacco Use Smoking Status Every Day Smokeless Tobacco Not on file [2] Current Facility-Administered Medications Medication Dose Route Frequency Provider Last Rate Last Admin aspirin chewable tablet 81 mg 81 mg Oral Daily Flako Rai MD 81 mg at 06/04/25 0842 atorvastatin (Lipitor) tablet 80 mg 80 mg Oral Nightly Roger Figueroa DO 80 mg at 06/03/252009 bisacodyl (Dulcolax) suppository 10 mg 10 mg Rectal Daily Flako Rai MD doxazosin (Cardura) tablet 2 mg 2 mg Oral Nightly Carolina, Reidis, DO 2 mg at 06/03/252009 escitalopram (Lexapro) [...] mg 4 mg Intravenous q6h PRN Edvin Du, DO oxyCODONE (Roxicodone) immediate release tablet 5 mg 5 mg Oral q6h PRN Edvin Du DO 5 mg at 06/04/25 0841 pantoprazole [...] for Consult: ESRD management HPI: Mrs Mar Waldorn is a 54 y.o. female with a [...] her dialysis unit on Tuesday for scheduled MANAGEMENT SPECIALIST however had issues with inability to access [...] Resource Strain: High Risk (06/17/2024) Received from [facility] ([place], [place], [place], [place]) Financial Resource Strain [...] No Physical Activity: Inactive (06/17/2024) Received from [facility] ([place], [place], [place], [place]) Physical Activity Number of minutes of exercise per week : 0 Stress: No Stress Concern Present (04/15/2024) Received from [facility] ([place], [place], [place], [place]) Stress Feeling stress past 2 weeks: 1 Social Connections: Unknown (06/25/2024) Social Connection and Isolation Panel Frequency of Communication with Friends and Family: Not on file Frequency of Social Gatherings with Friends and Family: Not on file Attends Christian Services: Not on file Active Member of Clubs or Organizations: Not on file Attends Club or Organization Meetings: Not on file Marital Status: Living with partner Intimate Partner Violence: Not At Risk (07/02/2024) Received from [facility] Abuse Screen Feels Unsafe at Home or [...] established yet, likely MWF - Dialysis Unit: [facility] - Outpatient Glassware Engraver: Dr. Tiny Summers - Residual renal functions: [...] renal disease) (CMS/HCC) CHF (congestive heart failure) (CMS/[facility]) Pleural effusion Acute hypoxic respiratory failure [3] Past Surgical History: Procedure Laterality Date APPENDECTOMY SECTION, LOW TRANSVERSE CHOLECYSTECTOMY CORONARY ARTERY BYPASS GRAFT Bilateral HYSTERECTOMY TONSILLECTOMY [4] Family History Problem Relation Name Age of Onset Diabetes Mother Diabetes Father Hypertension Mother Hypertension Father Other cancer Mother Other cancer Father Hyperlipidemia Mother Hyperlipidemia Father [5] Allergies Allergen Reactions Elsa Gillespie [Insulin Glargine] Other - please document in the comment field Lisinopril Cough and Unknown - Patient states they do not know rxn details Cough [6] Current Facility-Administered Medications: atorvastatin (Lipitor) tablet 80 mg, 80 mg, Oral, Nightly, Carolina, Roger, DO doxazosin (Cardura) tablet 2 mg, 2 mg, Oral, Nightly, Carolina, Roger, DO ezetimibe (Zetia) tablet 10 mg, 10 mg, Oral, Daily, Carolina, Roger, DO levothyroxine (Synthroid, Levoxyl) tablet 75 mcg, 75 mcg, Oral, Daily before breakfast, Roger Figueroa, DO ondansetron (Zofran) injection 4 mg, 4 mg, Intravenous, q6h PRN, Edvin Du R, DO oxyCODONE (Roxicodone) immediate release tablet 5 mg, 5 mg, Oral, q6h PRN, Edvin Du R, DO pantoprazole (Protonix) EC tablet 40 mg, 40 mg, Oral, Daily, CarolinaRoger, DO Insert peripheral IV, , , Once [...] Rfl: 0 ergocalciferol (Vitamin D-2) 1.25 MG (45418 UT) capsule, Take 1 capsule (50,000 Units) [...] Jones MD - 06/04/2025 10:49 AM EDT [facility] Progress Note Patient: [...] HLD, and HFpEF who was admitted to [facility] on 06/02 for concerns of thrombosed fistula. Outpatient HD: - Schedule: [facility] - Dialysis Unit: [facility] - Outpatient Glassware Engraver: Dr. Summers - Residual renal functions: Minimal [...] Jenae Jones MD Nephrology Fellow PGY-5 Page: [phone] [1] Patient Active Problem List Diagnosis Volume [...] that patient has a dialysis chair at [facility] on a MWF schedule. Updated provided to dialysis clinic. CM will continue to follow. Update 11:38 Family requested referral be sent to [facility] in [facility] [phone]. CM called and left voice mail. * Care Plan - Florence Phelan - 06/04/2025 4:06 AM EDT Problem: Adult Inpatient Plan of Care Goal: Plan of Care Review Outcome: Ongoing, Progressing Flowsheets (Taken 06/04/2025 0403) Progress: no change Outcome Evaluation: Patient will [...] facilitated Intervention: Provide Person-Centered Care Flowsheets (Taken 06/04/2025402) Trust Relationship/Rapport: care explained thoughts/feelings acknowledged emotional support provided Problem: Skin Injury Risk Increased Goal: Skin Health and Integrity Outcome: Ongoing, Progressing Intervention: Optimize Skin Protection Flowsheets (Taken 06/04/2025402) Activity Management: activity adjusted per tolerance Pressure [...] Intervention: Identify and Manage Contributors Flowsheets (Taken 06/04/2025402) Medication Review/Management: medications reviewed Self-Care Promotion: independence encouraged BADL personal objects within reach Intervention: Promote Injury-Free Environment Flowsheets (Taken 06/04/2025 0403) Safety Promotion/Fall Prevention: activity supervised assistive device/personal items within reach clutter-free environment maintained fall prevention program maintained nonskid shoes/slippers when out of bed safety round/check completed room organization consistent Problem: Gas Exchange Impaired Goal: Optimal Gas Exchange Outcome: Ongoing, Progressing Intervention: Optimize Oxygenation and Ventilation Flowsheets (Taken 06/04/2025 0403) Airway/Ventilation Management: oxygen therapy provided position adjusted Head of Bed (HOB) Positioning: HOB elevated Problem: Mobility Impairment Goal: Optimal Mobility Outcome: Ongoing, Progressing Intervention: Optimize Mobility Flowsheets (Taken 06/04/2025 0403) Activity Management: activity adjusted per tolerance Positioning/Transfer Devices: pillows repositioning sheet * Care Plan - Linda Stephen RN - 06/03/2025 4:14 [...] please give family a phone call. New flatev pics attached to chart! Thanks! Question Answer [...] (Active) Date First Assessed/Time First Assessed: 05/06/25 1404 Location: Buttocks Wound Location Orientation: Right Assessments [...] Jones MD - 06/03/2025 2:00 PM EDT Nephrology Progress Note Patient: Mar Waldron [...] HLD, and HFpEF who was admitted to [facility] on 06/02 for concerns of thrombosed/malfunctioning fistula. Outpatient HD: - Schedule: MWF - Dialysis Unit: [facility] - Outpatient Glassware Engraver: Dr. Summers - Residual renal functions: Minimal [...] Jenae Jones MD Nephrology Fellow PGY-5 Page: [phone] [1] Patient Active Problem List Diagnosis Volume overload ESRD (end stage renal disease) (CMS/HCC) CHF (congestive heart failure) ([facility]) Pleural effusion Acute hypoxic respiratory failure Acute pulmonary edema ([facility]/HCC) GI bleed [2] aspirin, 81 mg, Oral, [...] Case Management Adult Initial Progress Note Mar Waldron 55 y.o. female CSN: [id number] Admission: 06/01/2025 4:48 PM Primary Problem: Acute hypoxic respiratory failure Equipment Inspector reviewed chart and spoke with sonWade to [...] Extended Emergency Contact Information Primary Emergency Contact: Wade Warren Mobile Relation: Son Preferred language: Vietnamese Informatics Consultant needed? No Secondary Emergency Contact: Ana,Jeremy Mobile Relation: Son Insurance: Primary Visit Coverage Payer Plan Sponsor Code Group Number Group Name HUMANA MEDICARE HUMANA GOLD PLUS [id number] Primary Visit Coverage Subscriber Subscriber ID Subscriber Name Subscriber SSN Subscriber Address [id number] Mar Waldron [id number] [place] [address] Patient information: Primary Caregiver: Family Support System: Immediate family Daily Living Activities: Functional Status: Moderate assistance Living Arrangements: Family Type of Residence: Private residence [address] [place] [address] Smoker in the Home?: N/A Current DME: [...] / Home Infusion / Outpatient Dialysis Services: [facility] Living Will/Advance Directive/Power of Leather Grader /Guardian: Additional Comments: Patient with some confusion. CM talked with son, Wade to obtain initial assessment. He states patient [...] his brother regarding KELLY vs returning home. BRISEYDA will continue to follow. Sobia Jeffers RN * Progress Notes - Flako Rai MD - 06/03/2025 7:36 AM EDT Images from the original note were not included. [facility] Medicine Progress Note Subjective Subjective No [...] Active Problems: ESRD (end stage renal disease) ([facility]) CHF (congestive heart failure) ([facility]) Pleural effusion Acute pulmonary edema ([facility]) GI bleed Mar Waldron is a 55 [...] - H/H q8h #CAD - Hx of MT with COSME to mLAD, distant - Home [...] Malnutrition - High Risk for Refeeding - Reservoir Engineering Advisor consult #Adult Failure To Thrive with Weight [...] renal disease on intermittent hemodialysis (MWF at [facility]), undifferentiated renal mass, hypertension, reported COPD, coronary [...] to missed dialysis - Dialysis chair at [facility] on a MWF schedule [...] and management per PCP #CAD w/ prior MT with COSME to mLAD with prior stenting [...] Chronic pain: Discharge with 7 days of [place] due to missing pain clinic appointment while [...] from the original note were not included. [facility] Medicine History & Physical Subjective 06/01/2025 [...] significant other; her son's moved her to [place] within the last 3-4 weeks due to [...] share some concern altered mentation, no acute post exchange manager past several days. Denies fever, chills, chest [...] since 05/02/25 Location Start Date End Date [facility]) 04/05/25 (defaulted) 05/06/25 (defaulted) Immunizations Immunization History [...] Active Problems: ESRD (end stage renal disease) ([facility]) CHF (congestive heart failure) ([facility]) Pleural effusion Acute hypoxic respiratory failure Acute pulmonary edema ([facility]/HCC) Mar Waldron is a 55 y.o. female [...] 05/29 - Follows with Dr Summers in [place] - Dry weight 59kg, has AVF PLAN [...] - H/H q8h #CAD - Hx of MT with COSME to mLAD, distant - Home [...] Malnutrition - High Risk for Refeeding - Reservoir Engineering Advisor consult #Adult Failure To Thrive with Weight [...] Mayra Rogers MD * Progress Notes - Hemal Beltran - 06/02/2025 9:39 AM EDT Physical Therapy [...] Diagnosis Date Noted CHF (congestive heart failure) ([facility]) 06/02/2025 Pleural effusion 06/02/2025 Acute hypoxic respiratory failure 06/02/2025 ESRD (end stage renal disease) ([facility]) 06/22/2024 Procedures Past Medical History Patient has a past medical history of Arthritis, CHF (congestive heart failure) ([facility]), Chronic renal failure, Coronary artery disease, Diabetes mellitus ([facility]), HTN (hypertension), Hypothyroidism, and Renal cancer ([facility]). Past Surgical History Patient has a past surgical history that includes Tonsillectomy; Appendectomy; Cholecystectomy; Hysterectomy; section, low transverse; and Coronary artery bypass graft (Bilateral). Precautions Medical Precautions: Fall precautions Subjective Patient agreeable to PT evaluation. Participants in Care Family/Caregiver Present: No Informatics Consultant: Not Applicable Presentation Oxygen Therapy: Supplemental oxygen [...] go out except for doctor appointments) Mobility Parmer: Assist with wheelchair propulsion History of Falls: [...] supine. Bed Mobility Exam: Rolling/Turning Level of Parmer: Contact guard (bilaterally) Physical/Nonphysical Assist: Verbal Cues, Minimal cues Assistive Device: Bed rails Bed Mobility Exam: Scooting/Bridging Level of Parmer: Dependent (scooting to HOB in supine) Physical/Nonphysical Assist: Verbal Cues, Minimal cues, Additional assist utilized for safety Assistive Device: Other (drawsheet) Bed Mobility Exam: Supine to Sit Level of Parmer: Moderate assist (50% patient's effort) (pt achieved [...] [place]. Standardized Assessments Standardized Assessments Standardized Assessments: [facility] 6-Clicks Mobility Assessment [facility] 6-Clicks Mobility Assessment Difficulty patient has turning [...] climbing 3-5 steps with a railing?: Unable [facility] 6-Clicks Mobility Assessment Total : 9 Assessment [...] refresh.. Hospital Course 1. Acute pulmonary edema (CMS/HCC) 2. End-stage renal disease needing dialysis (CMS/[facility]) Procedures (if applicable) Past Medical History Patient has a past medical history of Arthritis, CHF (congestive heart failure) (CMS/HCC), Chronic renal failure, Coronary artery disease, Diabetes mellitus (CMS/HCC), HTN (hypertension), Hypothyroidism, and Renal cancer (CMS/HCC). Past Surgical History Patient has a past surgical history that includes Tonsillectomy; Appendectomy; Cholecystectomy; Hysterectomy; section, low transverse; and Coronary artery bypass graft (Bilateral). MOBILITY GUIDELINES There are no questions and answers to display. PRECAUTIONS Medical Precautions Yes Medical Precautions: Fall precautions SUBJECTIVE PARTICIPANTS IN CARE Patient/Caregiver Comments Pt agreeable to therapy Visitors Present No Informatics Consultant (if applicable) PRESENTATION Oxygen Supplemental oxygen Nasal [...] go out except for doctor appointments) Mobility Parmer Assist with wheelchair propulsion History of Falls [...] Sensation Muscle Tone BED MOBILITY Level of Parmer Physical/Non-physical Assist Adaptive Equipment Utilized Rolling/ Turning [...] to Supine Comments FUNCTIONAL MOBILITY Level of Parmer Distance Adaptive Equipment Utilized Ambulation Comments Unable to ambulate BALANCE Postural Appearance INTERVENTIONS Unable to assess this date. Level of Parmer Balance Support Comments Static Sit Dynamic Sit [...] declined wash cloth for grooming. Level of Parmer Adaptive Equipment Utilized Comments Feeding Grooming Bathing Upper Body Dressing Lower Body Dressing Shoe Level of Assistance: Dependent Toileting Dependent Bed level IADLs Health Management Community Re-Entry STANDARDIZED ASSESSMENTS [facility] 6-Click Daily Activities Help from Other: Don/Doff Regular Lower Body Clothings: Total Help From Other: Bathing: A lot Help From Other: Toileting: Total Help From Other: Don/Doff Upper Body Clothings: Total Help From Other: Grooming: Little Help From Other: Eating Meals: Little [facility] 6 Click - Daily Activities Score: 11 [...] her dialysis unit on Tuesday for scheduled MANAGEMENT SPECIALIST however had issues with inability to access [...] Resource Strain: High Risk (06/17/2024) Received from [employer] ([place], [place], [place]) Financial Resource Strain How hard [...] No Physical Activity: Inactive (06/17/2024) Received from [employer] ([place], [employer], [place], [place]) Physical Activity Number of minutes of exercise per week : 0 Stress: No Stress Concern Present (04/15/2024) Received from [employer] ([place], [employer], [place]) Stress Feeling stress past 2 weeks: 1 Social Connections: Unknown (06/25/2024) Social Connection and Isolation Panel Frequency of Communication with Friends and Family: Not on file Frequency of Social Gatherings with Friends and Family: Not on file Attends Christian Services: Not on file Active Member of Clubs or Organizations: Not on file Attends Club or Organization Meetings: Not on file Marital Status: Living with partner Intimate Partner Violence: Not At Risk (07/02/2024) Received from [facility] Abuse Screen Feels Unsafe at Home or [...] - Dialysis Unit: [facility] - Outpatient Glassware Engraver: Dr. Tiny Summers - Residual renal functions: [...] Mother Hyperlipidemia Father [5] Allergies Allergen Reactions Elsa Gillespie [Insulin Glargine] Other - please document in the comment field Lisinopril Cough and Unknown - Patient states they do not know rxn details Cough [6] Current Facility-Administered Medications: atorvastatin (Lipitor) tablet 80 mg, 80 mg, Oral, Nightly, [place], Reangel, DO doxazosin (Cardura) tablet 2 mg, 2 mg, Oral, Nightly, [place], Reangel, DO ezetimibe (Zetia) tablet 10 mg, 10 mg, Oral, Daily, [place], Reangel, DO levothyroxine (Synthroid, Levoxyl) tablet 75 mcg, 75 mcg, Oral, Daily before breakfast, [place], Roger, DO ondansetron (Zofran) injection 4 mg, 4 [...] Rfl: 0 ergocalciferol (Vitamin D-2) 1.25 MG (38121 UT) capsule, Take 1 capsule (50,000 Units) [...] plan as documented. * H&P - Edvin Du, - 06/01/2025 9:48 PM EDT Images from [...] established with a primary care doctor in [place]. Reports that yesterday she had an accident [...] Resource Strain: High Risk (06/17/2024) Received from [employer] ([place], [place]) Financial Resource Strain How hard is [...] No Physical Activity: Inactive (06/17/2024) Received from [employer] ([place]) Physical Activity Number of minutes of exercise per week : 0 Stress: No Stress Concern Present (04/15/2024) Received from [employer] ([place], [employer], [place], [place]) Stress Feeling stress past 2 weeks: 1 Social Connections: Unknown (06/25/2024) Social Connection and Isolation Panel Frequency of Communication with Friends and Family: Not on file Frequency of Social Gatherings with Friends and Family: Not on file Attends Christian Services: Not on file Active Member of Clubs or Organizations: Not on file Attends Club or Organization Meetings: Not on file Marital Status: Living with partner Intimate Partner Violence: Not At Risk (07/02/2024) Received from [facility] Abuse Screen Feels Unsafe at Home or [...] baseline. Comments: Minimally interactive in questioning, poor bilingual medical assistant Psychiatric: Mood and Affect: Mood normal. Behavior: [...] Value Units Date/Time Blood Culture (Aerobic/Anaerobet Set) [[id number]] Collected: 06/01/251851 Order Status: Completed Specimen: Blood from Wrist, Right Updated: 06/01/252108 Culture Culture in lab Narrative: Low blood volume submitted, results may be compromised Blood Culture (Aerobic/Anaerobet Set) [[id number]] Collected: 06/01/251851 Order Status: Completed Specimen: Blood from Hand, Right Updated: 06/01/252100 Culture Culture in lab Narrative: Low blood volume submitted, results may be compromised SARS-CoV-2, Flu A, Flu B, and RSV - Rapid [[id number]] (Normal) Collected: 06/01/251852 Order Status: Completed Specimen: [...] & Plan ESRD (end stage renal disease) ([facility]) CHF (congestive heart failure) ([facility]) Pleural effusion Acute hypoxic respiratory failure -Vitals: [...] Du DO, MS, MS Family Medicine, PGY-3 [facility] [1] Past Medical History: Diagnosis Date Arthritis CHF (congestive heart failure) ([facility]) Chronic renal failure Coronary artery disease Diabetes mellitus ([facility]) HTN (hypertension) Hypothyroidism Renal cancer ([facility]) [2] Patient Active Problem List Diagnosis Volume overload ESRD (end stage renal disease) ([facility]) CHF (congestive heart failure) ([facility]) Pleural effusion Acute hypoxic respiratory failure [3] [...] altered * ED Provider Notes - Jay Matthews DO - 06/01/2025 3:09 PM EDT Images from [...] time. 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 Behavior: Behavior normal. [place] Coma Scale Score: 15 ED Course & [...] Internal Medicine Provider: (Not yet assigned) Canceled PERLA MATTHEWSKennedi Reynolds 06/01/251913 Once Canceled PERLA MATTHEWSN T 06/01/251858 VAS US Hemodialysis Access Left Once Acknowledged FAIZA GARVIN 06/01/251857 Initiate contact isolation Continuous Comments: Added via Instant Order OPA Acknowledged BPA, INSTANT ORDERS 06/01/25 185 Initiate N95 isolation Continuous Comments: Added via Instant Order OPA Acknowledged BPA, INSTANT ORDERS 06/01/25 185 Initiate eye protection Continuous Comments: Added via Instant Order OPA Acknowledged BPA, INSTANT ORDERS 06/01/25 1843 SARS-CoV-2, Flu A, Flu B, and RSV - Rapid STAT Final result PERLA MATTHEWSKennedi Reynolds 06/01/25 1838 Blood Culture (Aerobic/Anaerobet Set) STAT In process PERLA MATTHEWSN T 06/01/25 183 Blood Culture (Aerobic/Anaerobet Set) STAT In process JAY MATTHEWS T 06/01/25 1636 EKG now - STAT (adult) Once Preliminary result KLARISSA MONTERROSO Simon 06/01/25 1636 XR Chest 1 View One time imaging Final result CARROL MONTERROSOALICE Montes 06/01/25 1636 CMP STAT Final result KLARISSA MONTERROSO 06/01/25 1636 CBC STAT Final result KLARISSA MONTERROSO 06/01/25 1636 Magnesium STAT Final result KLARISSA MONTERROSO 06/01/25 1636 Phosphorus STAT Final result KLARISSA MONTERROSO 06/01/25 1636 Blood gas panel, venous STAT Final result KLARISSA MONTERROSO ED Course as of 06/01/252022 Sat Jun 01, 2025 1710 Hemoglobin(!): 8.6 H and H low but not in need of transfusion [] 1805 Creatinine(!): 3.87 Likely secondary to ESRD and lack of dialysis [] 2018 SARS-CoV-2, Flu A, Flu B, and RSV - Rapid Hutchins negative [] 2019 XR Chest 1 View Moderate to large right pleural effusion and bilateral airspace disease, likely reflecting pulmonary edema. [SH] 2019 EKG now - STAT (adult) PACs and bradycardia [] ED Course User Index [] Jay Matthews T, DO Clinical Impressions as of 06/01/252022 Acute pulmonary edema (CMS/HCC) End-stage renal disease needing dialysis (CMS/HCC) Social Determinates of Health Risks (including Economic Stability, Education and level of understanding, Healthcare access and quality and concerning social factors): Poor health literacy Ultimately, this patient was was signed out to the [facility] provider (Signed Out) Patient care assumed by [facility] provider, Dr. Madden, at shift change, tentative [...] Alcohol use: No [5] Allergies Allergen Reactions Monetaglar Jose Miguel [...] Lara RN - 06/01/2025 3:09 PM EDT Skyler reports that they just recently moved the patient from [place] up here with them and the dialysis place here intermittently has been having trouble with her fistula. Last used it on Tuesday for her dialysis, missed Fridays dialysis because she had a fall and was seen at another ED for a headCT. Today she went to have dialysis and the nurses said that her fistula wasn't working. * Progress Notes - Madden-Juan Jose Marroquin MD - 06/01/2025 3:09 PM EDT Images from the original note were not included. ED TRANSFER OF CARE NOTE Transferring provider: Faiza Garvin Transferring attending: Jay Matthews LEANN Time: 9:00pm I received sign-out and accepted [...] ED Medication Administration from 06/01/2025 1508 to 06/01/20252099 Date/Time Order Dose Route Action 06/01/2025 1905 [...] Stopped ED COURSE: ED Course as of 06/01/252099 Sat Jun 01, 2025 171 Hemoglobin(!): 8.6 H and H low but not in need of transfusion [SH] 1805 Creatinine(!): 3.87 Likely secondary to ESRD and [...] Description 08/20/2025 12:00 PM EST Office Visit [facility] [address], [address] [place] [address] Kaiden Harvey MD [address] [place] [address] Scheduled Orders Name Type Priority Associated Diagnoses Orde r Schedule ECG Adult ECG Routine Chronic obstructive pulmonary disease with acute exacerbation (CMS/HCC) Ordered: 06/10/2025 Pulmonary function testing PFT Routine Chronic obstructive pulmonary disease with acute exacerbation (CMS/HCC) 1 Occurrences starting 06/10/2025 until 12/12/2026 Scheduled Referrals Name Type Priority Associated Diagnoses Orde r Schedule Discharge Ambulatory referral to [facility] Home Health Outpatient Referral Routine Acute pulmonary edema [...] artery disease involving coronary bypass graft of [place] heart without angina pectoris Chronic congestive heart [...] deficit On track( 025 10:41 AM EDT) No Baylee Gracia RN Patient will verbalize understanding of how other conditions affect the heart Care Plan Heart Failure diagnosis knowledge deficit No Baylee Gracia RN Patient will be able to identify signs and symptoms of fluid retention Care Plan Fluid retention / overload No Baylee Gracia RN Patient will maintain management of sodium [...] PM EDT ESRD (end stage renal disease) ([facility]) Unspecified complication of cardiac and vascular prosthetic [...] CBC and Differential (06/10/2025 4:24 AM EDT) [facility] WBC Count 7.28 3.70 - 10.30 10*3/uL LAB HEMATOLOGY METHOD 06/10/2025 4:48 AM EDT [facility] RBC Count 3.10(L) 3.90 - 5.20 10*6/uL LAB HEMATOLOGY METHOD 06/10/2025 4:48 AM EDT [facility] HGB 8.1(L) 11.2 - 15.7 g/dL LAB HEMATOLOGY METHOD 06/10/2025 4:48 AM EDT [facility] HCT 29.1(L) 34.0 - 45.0 % LAB HEMATOLOGY METHOD 06/10/2025 4:48 AM EDT [facility] Platelet Count 64(L) 155 - 369 10*3/uL LAB HEMATOLOGY METHOD 06/10/2025 4:48 AM EDT [facility] MCV 94 79 - 98 fL LAB HEMATOLOGY METHOD 06/10/2025 4:48 AM EDT [facility] MCH 26.1 26.0 - 32.0 pg LAB HEMATOLOGY METHOD 06/10/2025 4:48 AM EDT [facility] MCHC 27.8(L) 30.7 - 35.5 g/dL LAB HEMATOLOGY METHOD 06/10/2025 4:48 AM EDT [facility] RDW 16.0(H) 11.5 - 14.5 % LAB HEMATOLOGY METHOD 06/10/2025 4:48 AM EDT [facility] MPV 12.1 8.8 - 12.5 fL LAB HEMATOLOGY METHOD 06/10/2025 4:48 AM EDT [facility] nRBC 0.0 <=0.0 per 100 WBCs LAB HEMATOLOGY METHOD 06/10/2025 4:48 AM EDT [facility] Differential Type Automated LAB HEMATOLOGY METHOD 06/10/2025 4:48 AM EDT [facility] Neutrophils % 79 % LAB HEMATOLOGY METHOD 06/10/2025 4:48 AM EDT [facility] Lymphocytes % 9 % LAB HEMATOLOGY METHOD 06/10/2025 4:48 AM EDT [facility] Monocytes % 7 % LAB HEMATOLOGY METHOD 06/10/2025 4:48 AM EDT [facility] Eosinophils % 3 % LAB HEMATOLOGY METHOD 06/10/2025 4:48 AM EDT [facility] Basophils % 1 % LAB HEMATOLOGY METHOD 06/10/2025 4:48 AM EDT [facility] Immature Granulocytes % 1 % LAB HEMATOLOGY METHOD 06/10/2025 4:48 AM EDT [facility] Neutrophils Absolute 5.88 1.60 - 6.10 10*3/uL LAB HEMATOLOGY METHOD 06/10/2025 4:48 AM EDT [facility] Lymphocytes Absolute 0.65(L) 1.20 - 3.90 10*3/uL LAB HEMATOLOGY METHOD 06/10/2025 4:48 AM EDT [facility] Monocytes Absolute 0.47 0.30 - 0.90 10*3/uL LAB HEMATOLOGY METHOD 06/10/2025 4:48 AM EDT [facility] Eosinophils Absolute 0.20 0.00 - 0.50 10*3/uL LAB HEMATOLOGY METHOD 06/10/2025 4:48 AM EDT [facility] Basophils Absolute 0.04 0.00 - 0.10 10*3/uL LAB HEMATOLOGY METHOD 06/10/2025 4:48 AM EDT [facility] Immature Granulocytes Absolute 0.04 0.00 - 0.06 10*3/uL LAB HEMATOLOGY METHOD 06/10/2025 4:48 AM EDT [facility] Blood Venous blood specimen / Unknown Venipuncture / Unknown 06/10/2025 4:24 AM EDT 06/10/2025 4:42 AM EDT Narrative [facility] - 06/10/2025 4:48 AM EDT Therapeutic decision making should be based on absolute values, rather than percentages. us Faiza Garvin MD LAB BLOOD ORDERABLES Final Re sult [facility] [address] [place] [address] * (ABNORMAL) Comprehensive Metabolic Panel, Plasma (06/10/2025 4:24 AM EDT) Glucose, Plasma 165(H) 74 - 99 mg/dL 06/10/2025 5:09 AM EDT [facility] BUN, Plasma 57(H) 7 - 21 mg/dL 06/10/2025 5:09 AM EDT [facility] Creatinine, Plasma 3.74(H) 0.60 - 1.10 mg/dL 06/10/2025 5:09 AM EDT [facility] BUN/Creatinine Ratio 15 06/10/2025 5:09 AM EDT [facility] Sodium, Plasma 136 136 - 145 mmol/L 06/10/2025 5:09 AM EDT [facility] Potassium, Plasma 4.1 3.6 - 4.9 mmol/L 06/10/2025 5:09 AM EDT [facility] Chloride, Plasma 99 97 - 107 mmol/L 06/10/2025 5:09 AM EDT [facility] CO2, Plasma 23 22 - 29 mmol/L 06/10/2025 5:09 AM EDT [facility] Anion Gap 14 6 - 16 mmol/L 06/10/2025 5:09 AM EDT [facility] Total Calcium, Plasma 8.2(L) 8.9 - 10.2 mg/dL 06/10/2025 5:09 AM EDT [facility] Total Protein 5.8(L) 6.3 - 7.9 g/dL 06/10/2025 5:09 AM EDT [facility] Albumin, Plasma 2.7(L) 3.5 - 5.2 g/dL 06/10/2025 5:09 AM EDT [facility] AST, Plasma 9(L) 10 - 35 U/L 06/10/2025 5:09 AM EDT [facility] ALT, Plasma <5(L) 10 - 35 U/L 06/10/2025 5:09 AM EDT [facility] Alkaline Phosphatase, Plasma 166(H) 46 - 142 U/L 06/10/2025 5:09 AM EDT [facility] Total Bilirubin, Plasma 0.4 0.2 - 1.1 mg/dL 06/10/2025 5:09 AM EDT [facility] eGFRcr 13.6 mL/min/1.7 3m*2 06/10/2025 5:09 AM EDT [facility] Comment:Reported eGFRcr in m L/min/1.73m2 is based the CKD-EPI 2020 equation that does not use a race coefficient. Blood Venous blood specimen / Unknown Venipuncture / Unknown 06/10/2025 4:24 AM EDT 06/10/2025 4:40 AM EDT us Faiza Garvin MD LAB BLOOD ORDERABLES Final Re sult [facility] [address] [place] [address] * Magnesium, Plasma (06/10/2025 4:24 AM EDT) Magnesium, Plasma 2.1 1.9 - 2.4 mg/dL 06/10/2025 5:09 AM EDT [facility] Blood Venous blood specimen / Unknown Venipuncture / Unknown 06/10/2025 4:24 AM EDT 06/10/2025 4:40 AM EDT us Faiza Garvin MD LAB BLOOD ORDERABLES Final Re sult Performing Organization Address City/[facility]/ZIP Co de Phone Number [facility] [address] [place] [address] * (ABNORMAL) Phosphorus, Plasma (06/10/2025 4:24 AM EDT) Phosphorus, Plasma 4.6(H) 2.5 - 4.5 mg/dL 06/10/2025 5:09 AM EDT [facility] Blood Venous blood specimen / Unknown Venipuncture / Unknown 06/10/2025 4:24 AM EDT 06/10/2025 4:40 AM EDT us Faiza Garvin MD LAB BLOOD ORDERABLES Final Re sult Performing Organization Address [facility]/ZIP Co de Phone Number [facility] [address] [place] [address] * (ABNORMAL) CBC and Differential (06/09/2025 4:35 AM EDT) WBC Count 7.05 3.70 - 10.30 10*3/uL LAB HEMATOLOGY METHOD 06/09/2025 5:46 AM EDT [facility] RBC Count 2.80(L) 3.90 - 5.20 10*6/uL LAB HEMATOLOGY METHOD 06/09/2025 5:46 AM EDT [facility] HGB 7.6(L) 11.2 - 15.7 g/dL LAB HEMATOLOGY METHOD 06/09/2025 5:46 AM EDT [facility] HCT 26.9(L) 34.0 - 45.0 % LAB HEMATOLOGY METHOD 06/09/2025 5:46 AM EDT [facility] Platelet Count 60(L) 155 - 369 10*3/uL LAB HEMATOLOGY METHOD 06/09/2025 5:46 AM EDT [facility] MCV 96 79 - 98 fL LAB HEMATOLOGY METHOD 06/09/2025 5:46 AM EDT [facility] MCH 27.1 26.0 - 32.0 pg LAB HEMATOLOGY METHOD 06/09/2025 5:46 AM EDT [facility] MCHC 28.3(L) 30.7 - 35.5 g/dL LAB HEMATOLOGY METHOD 06/09/2025 5:46 AM EDT [facility] RDW 15.9(H) 11.5 - 14.5 % LAB HEMATOLOGY METHOD 06/09/2025 5:46 AM EDT [facility] MPV LAB HEMATOLOGY METHOD 06/09/2025 5:46 AM EDT [facility] Comment:Not Measured nRBC 0.0 <=0.0 per 100 WBCs LAB HEMATOLOGY METHOD 06/09/2025 5:46 AM EDT [facility] Differential Type Automated LAB HEMATOLOGY METHOD 06/09/2025 5:46 AM EDT [facility] Neutrophils % 79 % LAB HEMATOLOGY METHOD 06/09/2025 5:46 AM EDT [facility] Lymphocytes % 9 % LAB HEMATOLOGY METHOD 06/09/2025 5:46 AM EDT [facility] Monocytes % 7 % LAB HEMATOLOGY METHOD 06/09/2025 5:46 AM EDT [facility] Eosinophils % 3 % LAB HEMATOLOGY METHOD 06/09/2025 5:46 AM EDT [facility] Basophils % 1 % LAB HEMATOLOGY METHOD 06/09/2025 5:46 AM EDT [facility] Immature Granulocytes % 1 % LAB HEMATOLOGY METHOD 06/09/2025 5:46 AM EDT [facility] Neutrophils Absolute 5.60 1.60 - 6.10 10*3/uL LAB HEMATOLOGY METHOD 06/09/2025 5:46 AM EDT [facility] Lymphocytes Absolute 0.62(L) 1.20 - 3.90 10*3/uL LAB HEMATOLOGY METHOD 06/09/2025 5:46 AM EDT [facility] Monocytes Absolute 0.50 0.30 - 0.90 10*3/uL LAB HEMATOLOGY METHOD 06/09/2025 5:46 AM EDT [facility] Eosinophils Absolute 0.21 0.00 - 0.50 10*3/uL LAB HEMATOLOGY METHOD 06/09/2025 5:46 AM EDT [facility] Basophils Absolute 0.04 0.00 - 0.10 10*3/uL LAB HEMATOLOGY METHOD 06/09/2025 5:46 AM EDT [facility] Immature Granulocytes Absolute 0.08(H) 0.00 - 0.06 10*3/uL LAB HEMATOLOGY METHOD 06/09/2025 5:46 AM EDT [facility] Blood Venous blood specimen / Unknown Venipuncture / Unknown 06/09/2025 4:35 AM EDT 06/09/2025 5:34 AM EDT Narrative [facility] - 06/09/2025 5:46 AM EDT Therapeutic decision making should be based on absolute values, rather than percentages. us Faiza Garvin MD LAB BLOOD ORDERABLES Final Re sult [facility] [address] [place] [address] * (ABNORMAL) Comprehensive Metabolic Panel, Plasma (06/09/2025 4:35 AM EDT) Glucose, Plasma 100(H) 74 - 99 mg/dL 06/09/2025 6:01 AM EDT [facility] BUN, Plasma 47(H) 7 - 21 mg/dL 06/09/2025 6:01 AM EDT [facility] Creatinine, Plasma 3.30(H) 0.60 - 1.10 mg/dL 06/09/2025 6:01 AM EDT [facility] BUN/Creatinine Ratio 14 06/09/2025 6:01 AM EDT [facility] Sodium, Plasma 136 136 - 145 mmol/L 06/09/2025 6:01 AM EDT [facility] Potassium, Plasma 3.8 3.6 - 4.9 mmol/L 06/09/2025 6:01 AM EDT [facility] Chloride, Plasma 97 97 - 107 mmol/L 06/09/2025 6:01 AM EDT [facility] CO2, Plasma 24 22 - 29 mmol/L 06/09/2025 6:01 AM EDT [facility] Anion Gap 15 6 - 16 mmol/L 06/09/2025 6:01 AM EDT [facility] Total Calcium, Plasma 8.4(L) 8.9 - 10.2 mg/dL 06/09/2025 6:01 AM EDT [facility] Total Protein 5.9(L) 6.3 - 7.9 g/dL 06/09/2025 6:01 AM EDT [facility] Albumin, Plasma 3.0(L) 3.5 - 5.2 g/dL 06/09/2025 6:01 AM EDT [facility] AST, Plasma 14 10 - 35 U/L 06/09/2025 6:01 AM EDT [facility] Comment:Hemolyzed, result ma y be falsely increased. ALT, Plasma 5(L) 10 - 35 U/L 06/09/2025 6:01 AM EDT [facility] Alkaline Phosphatase, Plasma 171(H) 46 - 142 U/L 06/09/2025 6:01 AM EDT [facility] Total Bilirubin, Plasma 0.4 0.2 - 1.1 mg/dL 06/09/2025 6:01 AM EDT [facility] eGFRcr 15.8 mL/min/1.7 3m*2 06/09/2025 6:01 AM EDT [facility] Comment:Reported eGFRcr in m L/min/1.73m2 is based the CKD-EPI 2020 equation that does not use a race coefficient. Blood Venous blood specimen / Unknown Venipuncture / Unknown 06/09/2025 4:35 AM EDT 06/09/2025 5:32 AM EDT us Faiza Garvin MD LAB BLOOD ORDERABLES Final Re sult [facility] [address] [place] [address] * Magnesium, Plasma (06/09/2025 4:35 AM EDT) Magnesium, Plasma 2.1 1.9 - 2.4 mg/dL 06/09/2025 6:01 AM EDT [facility] Blood Venous blood specimen / Unknown Venipuncture / Unknown 06/09/2025 4:35 AM EDT 06/09/2025 5:32 AM EDT us Faiza Garvin MD LAB BLOOD ORDERABLES Final Re sult [facility] [address] [place] [address] * Phosphorus, Plasma (06/09/2025 4:35 AM EDT) [facility] Phosphorus, Plasma 4.2 2.5 - 4.5 mg/dL 06/09/2025 6:01 AM EDT [facility] Blood Venous blood specimen / Unknown Venipuncture / Unknown 06/09/2025 4:35 AM EDT 06/09/2025 5:32 AM EDT Faiza Garvin MD LAB BLOOD ORDERABLES Final Re sult Performing Organization Address City/[facility]/ZIP Co de Phone Number [facility] [address] [place] [address] * (ABNORMAL) CBC and Differential (06/08/2025 4:05 AM EDT) [facility] WBC Count 6.33 3.70 - 10.30 10*3/uL LAB HEMATOLOGY METHOD 06/08/2025 4:34 AM EDT [facility] RBC Count 2.78(L) 3.90 - 5.20 10*6/uL LAB HEMATOLOGY METHOD 06/08/2025 4:34 AM EDT [facility] HGB 7.3(L) 11.2 - 15.7 g/dL LAB HEMATOLOGY METHOD 06/08/2025 4:34 AM EDT [facility] HCT 26.0(L) 34.0 - 45.0 % LAB HEMATOLOGY METHOD 06/08/2025 4:34 AM EDT [facility] Platelet Count 51(L) 155 - 369 10*3/uL LAB HEMATOLOGY METHOD 06/08/2025 4:34 AM EDT [facility] MCV 94 79 - 98 fL LAB HEMATOLOGY METHOD 06/08/2025 4:34 AM EDT [facility] MCH 26.3 26.0 - 32.0 pg LAB HEMATOLOGY METHOD 06/08/2025 4:34 AM EDT [facility] MCHC 28.1(L) 30.7 - 35.5 g/dL LAB HEMATOLOGY METHOD 06/08/2025 4:34 AM EDT [facility] RDW 15.9(H) 11.5 - 14.5 % LAB HEMATOLOGY METHOD 06/08/2025 4:34 AM EDT [facility] MPV LAB HEMATOLOGY METHOD 06/08/2025 4:34 AM EDT [facility] Comment:Not Measured nRBC 0.0 <=0.0 per 100 WBCs LAB HEMATOLOGY METHOD 06/08/2025 4:34 AM EDT [facility] Differential Type Automated LAB HEMATOLOGY METHOD 06/08/2025 4:34 AM EDT [facility] Neutrophils % 82 % LAB HEMATOLOGY METHOD 06/08/2025 4:34 AM EDT [facility] Lymphocytes % 7 % LAB HEMATOLOGY METHOD 06/08/2025 4:34 AM EDT [facility] Monocytes % 7 % LAB HEMATOLOGY METHOD 06/08/2025 4:34 AM EDT [facility] Eosinophils % 3 % LAB HEMATOLOGY METHOD 06/08/2025 4:34 AM EDT [facility] Basophils % 0 % LAB HEMATOLOGY METHOD 06/08/2025 4:34 AM EDT [facility] Immature Granulocytes % 1 % LAB HEMATOLOGY METHOD 06/08/2025 4:34 AM EDT [facility] Neutrophils Absolute 5.17 1.60 - 6.10 10*3/uL LAB HEMATOLOGY METHOD 06/08/2025 4:34 AM EDT [facility] Lymphocytes Absolute 0.46(L) 1.20 - 3.90 10*3/uL LAB HEMATOLOGY METHOD 06/08/2025 4:34 AM EDT [facility] Monocytes Absolute 0.46 0.30 - 0.90 10*3/uL LAB HEMATOLOGY METHOD 06/08/2025 4:34 AM EDT [facility] Eosinophils Absolute 0.16 0.00 - 0.50 10*3/uL LAB HEMATOLOGY METHOD 06/08/2025 4:34 AM EDT [facility] Basophils Absolute 0.02 0.00 - 0.10 10*3/uL LAB HEMATOLOGY METHOD 06/08/2025 4:34 AM EDT [facility] Immature Granulocytes Absolute 0.06 0.00 - 0.06 10*3/uL LAB HEMATOLOGY METHOD 06/08/2025 4:34 AM EDT [facility] Blood Venous blood specimen / Unknown Venipuncture / Unknown 06/08/2025 4:05 AM EDT 06/08/2025 4:22 AM EDT Narrative [facility] - 06/08/2025 4:34 AM EDT Therapeutic decision making should be based on absolute values, rather than percentages. us Faiza Garvin MD LAB BLOOD ORDERABLES Final Re sult [facility] [address] [place] [address] * (ABNORMAL) Comprehensive Metabolic Panel, Plasma (06/08/2025 4:05 AM EDT) Glucose, Plasma 95 74 - 99 mg/dL 06/08/2025 4:54 AM EDT [facility] BUN, Plasma 40(H) 7 - 21 mg/dL 06/08/2025 4:54 AM EDT [facility] Creatinine, Plasma 2.83(H) 0.60 - 1.10 mg/dL 06/08/2025 4:54 AM EDT [facility] BUN/Creatinine Ratio 14 06/08/2025 4:54 AM EDT [facility] Sodium, Plasma 135(L) 136 - 145 mmol/L 06/08/2025 4:54 AM EDT [facility] Potassium, Plasma 4.7 3.6 - 4.9 mmol/L 06/08/2025 4:54 AM EDT [facility] Comment:Hemolyzed, result ma y be falsely increased. Chloride, Plasma 100 97 - 107 mmol/L 06/08/2025 4:54 AM EDT [facility] CO2, Plasma 25 22 - 29 mmol/L 06/08/2025 4:54 AM EDT [facility] Anion Gap 10 6 - 16 mmol/L 06/08/2025 4:54 AM EDT [facility] Total Calcium, Plasma 8.2(L) 8.9 - 10.2 mg/dL 06/08/2025 4:54 AM EDT [facility] Total Protein 6.0(L) 6.3 - 7.9 g/dL 06/08/2025 4:54 AM EDT [facility] Albumin, Plasma 2.8(L) 3.5 - 5.2 g/dL 06/08/2025 4:54 AM EDT [facility] AST, Plasma 28 10 - 35 U/L 06/08/2025 4:54 AM EDT [facility] Comment:Hemolyzed, result ma y be falsely increased. ALT, Plasma 6(L) 10 - 35 U/L 06/08/2025 4:54 AM EDT [facility] Alkaline Phosphatase, Plasma 162(H) 46 - 142 U/L 06/08/2025 4:54 AM EDT [facility] Total Bilirubin, Plasma 0.5 0.2 - 1.1 mg/dL 06/08/2025 4:54 AM EDT [facility] eGFRcr 19.0 mL/min/1.7 3m*2 06/08/2025 4:54 AM EDT [facility] Comment:Reported eGFRcr in m L/min/1.73m2 is based the CKD-EPI 2020 equation that does not use a race coefficient. Blood Venous blood specimen / Unknown Venipuncture / Unknown 06/08/2025 4:05 AM EDT 06/08/2025 4:11 AM EDT us Faiza Garvin MD LAB BLOOD ORDERABLES Final Re sult [facility] [address] [place] [address] * Magnesium, Plasma (06/08/2025 4:05 AM EDT) Magnesium, Plasma 2.0 1.9 - 2.4 mg/dL 06/08/2025 4:54 AM EDT [facility] Blood Venous blood specimen / Unknown Venipuncture / Unknown 06/08/2025 4:05 AM EDT 06/08/2025 4:11 AM EDT us Faiza Garvin MD LAB BLOOD ORDERABLES Final Re sult [facility] [address] [place] [address] * Phosphorus, Plasma (06/08/2025 4:05 AM EDT) Phosphorus, Plasma 4.0 2.5 - 4.5 mg/dL 06/08/2025 4:54 AM EDT [facility] Blood Venous blood specimen / Unknown Venipuncture / Unknown 06/08/2025 4:05 AM EDT 06/08/2025 4:11 AM EDT us Faiza Garvin MD LAB BLOOD ORDERABLES Final Re sult [facility] [address] [place] [address] * (ABNORMAL) CBC and Differential (06/07/2025 5:07 AM EDT) Pathologist [facility] WBC Count 6.72 3.70 - 10.30 10*3/uL LAB HEMATOLOGY METHOD 06/07/2025 5:43 AM EDT [facility] RBC Count 2.99(L) 3.90 - 5.20 10*6/uL LAB HEMATOLOGY METHOD 06/07/2025 5:43 AM EDT [facility] HGB 7.8(L) 11.2 - 15.7 g/dL LAB HEMATOLOGY METHOD 06/07/2025 5:43 AM EDT [facility] HCT 28.4(L) 34.0 - 45.0 % LAB HEMATOLOGY METHOD 06/07/2025 5:43 AM EDT [facility] Platelet Count 43(L) 155 - 369 10*3/uL LAB HEMATOLOGY METHOD 06/07/2025 5:43 AM EDT [facility] MCV 95 79 - 98 fL LAB HEMATOLOGY METHOD 06/07/2025 5:43 AM EDT [facility] MCH 26.1 26.0 - 32.0 pg LAB HEMATOLOGY METHOD 06/07/2025 5:43 AM EDT [facility] MCHC 27.5(L) 30.7 - 35.5 g/dL LAB HEMATOLOGY METHOD 06/07/2025 5:43 AM EDT [facility] RDW 15.9(H) 11.5 - 14.5 % LAB HEMATOLOGY METHOD 06/07/2025 5:43 AM EDT [facility] MPV LAB HEMATOLOGY METHOD 06/07/2025 5:43 AM EDT [facility] Comment:Not Measured nRBC 0.0 <=0.0 per 100 WBCs LAB HEMATOLOGY METHOD 06/07/2025 5:43 AM EDT [facility] Differential Type Automated LAB HEMATOLOGY METHOD 06/07/2025 5:43 AM EDT [facility] Neutrophils % 79 % LAB HEMATOLOGY METHOD 06/07/2025 5:43 AM EDT [facility] Lymphocytes % 9 % LAB HEMATOLOGY METHOD 06/07/2025 5:43 AM EDT [facility] Monocytes % 8 % LAB HEMATOLOGY METHOD 06/07/2025 5:43 AM EDT [facility] Eosinophils % 3 % LAB HEMATOLOGY METHOD 06/07/2025 5:43 AM EDT [facility] Basophils % 0 % LAB HEMATOLOGY METHOD 06/07/2025 5:43 AM EDT [facility] Immature Granulocytes % 1 % LAB HEMATOLOGY METHOD 06/07/2025 5:43 AM EDT [facility] Neutrophils Absolute 5.35 1.60 - 6.10 10*3/uL LAB HEMATOLOGY METHOD 06/07/2025 5:43 AM EDT [facility] Lymphocytes Absolute 0.57(L) 1.20 - 3.90 10*3/uL LAB HEMATOLOGY METHOD 06/07/2025 5:43 AM EDT [facility] Monocytes Absolute 0.55 0.30 - 0.90 10*3/uL LAB HEMATOLOGY METHOD 06/07/2025 5:43 AM EDT [facility] Eosinophils Absolute 0.17 0.00 - 0.50 10*3/uL LAB HEMATOLOGY METHOD 06/07/2025 5:43 AM EDT [facility] Basophils Absolute 0.03 0.00 - 0.10 10*3/uL LAB HEMATOLOGY METHOD 06/07/2025 5:43 AM EDT [facility] Immature Granulocytes Absolute 0.05 0.00 - 0.06 10*3/uL LAB HEMATOLOGY METHOD 06/07/2025 5:43 AM EDT [facility] Blood Venous blood specimen / Unknown Venipuncture / Unknown 06/07/2025 5:07 AM EDT 06/07/2025 5:27 AM EDT Narrative [facility] - 06/07/2025 5:43 AM EDT Therapeutic decision making should be based on absolute values, rather than percentages. us Faiza Garvin MD LAB BLOOD ORDERABLES Final Re sult [facility] [address] [place] [address] * (ABNORMAL) Comprehensive Metabolic Panel, Plasma (06/07/2025 5:07 AM EDT) Glucose, Plasma 90 74 - 99 mg/dL 06/07/2025 5:46 AM EDT [facility] BUN, Plasma 64(H) 7 - 21 mg/dL 06/07/2025 5:46 AM EDT [facility] Creatinine, Plasma 4.03(H) 0.60 - 1.10 mg/dL 06/07/2025 5:46 AM EDT [facility] BUN/Creatinine Ratio 16 06/07/2025 5:46 AM EDT [facility] Sodium, Plasma 139 136 - 145 mmol/L 06/07/2025 5:46 AM EDT [facility] Potassium, Plasma 4.4 3.6 - 4.9 mmol/L 06/07/2025 5:46 AM EDT [facility] Chloride, Plasma 99 97 - 107 mmol/L 06/07/2025 5:46 AM EDT [facility] CO2, Plasma 24 22 - 29 mmol/L 06/07/2025 5:46 AM EDT [facility] Anion Gap 16 6 - 16 mmol/L 06/07/2025 5:46 AM EDT [facility] Total Calcium, Plasma 8.4(L) 8.9 - 10.2 mg/dL 06/07/2025 5:46 AM EDT [facility] Total Protein 6.0(L) 6.3 - 7.9 g/dL 06/07/2025 5:46 AM EDT [facility] Albumin, Plasma 3.1(L) 3.5 - 5.2 g/dL 06/07/2025 5:46 AM EDT [facility] AST, Plasma 12 10 - 35 U/L 06/07/2025 5:46 AM EDT [facility] ALT, Plasma <5(L) 10 - 35 U/L 06/07/2025 5:46 AM EDT [facility] Alkaline Phosphatase, Plasma 173(H) 46 - 142 U/L 06/07/2025 5:46 AM EDT [facility] Total Bilirubin, Plasma 0.4 0.2 - 1.1 mg/dL 06/07/2025 5:46 AM EDT [facility] eGFRcr 12.4 mL/min/1.7 3m*2 06/07/2025 5:46 AM EDT [facility] Comment:Reported eGFRcr in m L/min/1.73m2 is based the CKD-EPI 2020 equation that does not use a race coefficient. Blood Venous blood specimen / Unknown Venipuncture / Unknown 06/07/2025 5:07 AM EDT 06/07/2025 5:18 AM EDT Faiza Garvin MD LAB BLOOD ORDERABLES Final Re sult Performing Organization Address City/[facility]/ZIP Co de Phone Number [facility] [address] [place] [address] * Magnesium, Plasma (06/07/2025 5:07 AM EDT) Magnesium, Plasma 2.2 1.9 - 2.4 mg/dL 06/07/2025 5:46 AM EDT [facility] Blood Venous blood specimen / Unknown Venipuncture / Unknown 06/07/2025 5:07 AM EDT 06/07/2025 5:18 AM EDT Faiza Garvin MD LAB BLOOD ORDERABLES Final Re sult [facility] [address] [place] [address] * (ABNORMAL) Phosphorus, Plasma (06/07/2025 5:07 AM EDT) Phosphorus, Plasma 5.1(H) 2.5 - 4.5 mg/dL 06/07/2025 5:46 AM EDT [facility] Blood Venous blood specimen / Unknown Venipuncture / Unknown 06/07/2025 5:07 AM EDT 06/07/2025 5:18 AM EDT us Faiza Garvin MD LAB BLOOD ORDERABLES Final Re sult [facility] [address] [place] [address] * (ABNORMAL) CBC and Differential (06/06/2025 2:49 AM EDT) [facility] WBC Count 6.74 3.70 - 10.30 10*3/uL LAB HEMATOLOGY METHOD 06/06/2025 3:30 AM EDT [facility] RBC Count 2.72(L) 3.90 - 5.20 10*6/uL LAB HEMATOLOGY METHOD 06/06/2025 3:30 AM EDT [facility] HGB 7.4(L) 11.2 - 15.7 g/dL LAB HEMATOLOGY METHOD 06/06/2025 3:30 AM EDT [facility] HCT 26.2(L) 34.0 - 45.0 % LAB HEMATOLOGY METHOD 06/06/2025 3:30 AM EDT [facility] Platelet Count 45(L) 155 - 369 10*3/uL LAB HEMATOLOGY METHOD 06/06/2025 3:30 AM EDT [facility] MCV 96 79 - 98 fL LAB HEMATOLOGY METHOD 06/06/2025 3:30 AM EDT [facility] MCH 27.2 26.0 - 32.0 pg LAB HEMATOLOGY METHOD 06/06/2025 3:30 AM EDT [facility] MCHC 28.2(L) 30.7 - 35.5 g/dL LAB HEMATOLOGY METHOD 06/06/2025 3:30 AM EDT [facility] RDW 15.8(H) 11.5 - 14.5 % LAB HEMATOLOGY METHOD 06/06/2025 3:30 AM EDT [facility] MPV LAB HEMATOLOGY METHOD 06/06/2025 3:30 AM EDT [facility] Comment:Not Measured nRBC 0.0 <=0.0 per 100 WBCs LAB HEMATOLOGY METHOD 06/06/2025 3:30 AM EDT [facility] Differential Type Automated LAB HEMATOLOGY METHOD 06/06/2025 3:30 AM EDT [facility] Neutrophils % 79 % LAB HEMATOLOGY METHOD 06/06/2025 3:30 AM EDT [facility] Lymphocytes % 9 % LAB HEMATOLOGY METHOD 06/06/2025 3:30 AM EDT [facility] Monocytes % 9 % LAB HEMATOLOGY METHOD 06/06/2025 3:30 AM EDT [facility] Eosinophils % 2 % LAB HEMATOLOGY METHOD 06/06/2025 3:30 AM EDT [facility] Basophils % 0 % LAB HEMATOLOGY METHOD 06/06/2025 3:30 AM EDT [facility] Immature Granulocytes % 1 % LAB HEMATOLOGY METHOD 06/06/2025 3:30 AM EDT [facility] Neutrophils Absolute 5.31 1.60 - 6.10 10*3/uL LAB HEMATOLOGY METHOD 06/06/2025 3:30 AM EDT [facility] Lymphocytes Absolute 0.63(L) 1.20 - 3.90 10*3/uL LAB HEMATOLOGY METHOD 06/06/2025 3:30 AM EDT [facility] Monocytes Absolute 0.57 0.30 - 0.90 10*3/uL LAB HEMATOLOGY METHOD 06/06/2025 3:30 AM EDT [facility] Eosinophils Absolute 0.15 0.00 - 0.50 10*3/uL LAB HEMATOLOGY METHOD 06/06/2025 3:30 AM EDT [facility] Basophils Absolute 0.02 0.00 - 0.10 10*3/uL LAB HEMATOLOGY METHOD 06/06/2025 3:30 AM EDT [facility] Immature Granulocytes Absolute 0.06 0.00 - 0.06 10*3/uL LAB HEMATOLOGY METHOD 06/06/2025 3:30 AM EDT [facility] Blood Venous blood specimen / Unknown Venipuncture / Unknown 06/06/2025 2:49 AM EDT 06/06/2025 3:08 [facility] 06/06/[facility]25 3:30 AM EDT Therapeutic decision making should be based on absolute values, rather than percentages. us Faiza Garvin MD LAB BLOOD ORDERABLES Final Re sult [facility] [address] [place] [address] * (ABNORMAL) Comprehensive Metabolic Panel, Plasma (06/06/2025 2:49 AM EDT) Glucose, Plasma 134(H) 74 - 99 mg/dL 06/06/2025 3:35 AM EDT [facility] BUN, Plasma 58(H) 7 - 21 mg/dL 06/06/2025 3:35 AM EDT [facility] Creatinine, Plasma 3.74(H) 0.60 - 1.10 mg/dL 06/06/2025 3:35 AM EDT [facility] BUN/Creatinine Ratio 16 06/06/2025 3:35 AM EDT [facility] Sodium, Plasma 137 136 - 145 mmol/L 06/06/2025 3:35 AM EDT [facility] Potassium, Plasma 4.0 3.6 - 4.9 mmol/L 06/06/2025 3:35 AM EDT [facility] Chloride, Plasma 97 97 - 107 mmol/L 06/06/2025 3:35 AM EDT [facility] CO2, Plasma 24 22 - 29 mmol/L 06/06/2025 3:35 AM EDT [facility] Anion Gap 16 6 - 16 mmol/L 06/06/2025 3:35 AM EDT [facility] Total Calcium, Plasma 8.3(L) 8.9 - 10.2 mg/dL 06/06/2025 3:35 AM EDT [facility] Total Protein 5.8(L) 6.3 - 7.9 g/dL 06/06/2025 3:35 AM EDT [facility] Albumin, Plasma 2.9(L) 3.5 - 5.2 g/dL 06/06/2025 3:35 AM EDT [facility] AST, Plasma 13 10 - 35 U/L 06/06/2025 3:35 AM EDT [facility] ALT, Plasma <5(L) 10 - 35 U/L 06/06/2025 3:35 AM EDT [facility] Alkaline Phosphatase, Plasma 171(H) 46 - 142 U/L 06/06/2025 3:35 AM EDT [facility] Total Bilirubin, Plasma 0.3 0.2 - 1.1 mg/dL 06/06/2025 3:35 AM EDT [facility] eGFRcr 13.6 mL/min/1.7 3m*2 06/06/2025 3:35 AM EDT [facility] Comment:Reported eGFRcr in m L/min/1.73m2 is based the CKD-EPI 2020 equation that does not use a race coefficient. Blood Venous blood specimen / Unknown Venipuncture / Unknown 06/06/2025 2:49 AM EDT 06/06/2025 3:08 AM EDT Faiza Garvin MD LAB BLOOD ORDERABLES Final Re sult Performing Organization Address City/[facility]/ZIP Co de Phone Number [facility] [address] [place] [address] * Magnesium, Plasma (06/06/2025 2:49 AM EDT) Magnesium, Plasma 2.2 1.9 - 2.4 mg/dL 06/06/2025 3:35 AM EDT [facility] Blood Venous blood specimen / Unknown Venipuncture / Unknown 06/06/2025 2:49 AM EDT 06/06/2025 3:08 AM EDT Faiza Garvin MD LAB BLOOD ORDERABLES Final Re sult [facility] [address] [place] [address] * (ABNORMAL) Phosphorus, Plasma (06/06/2025 2:49 AM EDT) Phosphorus, Plasma 4.7(H) 2.5 - 4.5 mg/dL 06/06/2025 3:35 AM EDT [facility] Blood Venous blood specimen / Unknown Venipuncture / Unknown 06/06/2025 2:49 AM EDT 06/06/2025 3:08 AM EDT Faiza Garvin MD LAB BLOOD ORDERABLES Final Re sult Performing Organization Address City/[facility]/ZIP Co de Phone Number [facility] [address] [place] [address] * (ABNORMAL) POCT glucose meter (06/05/2025 11:54 AM EDT) POCT Glucose 127(H) 74 - 99 mg/dL 06/05/2025 11:56 AM EDT [facility] Comment:Accuracy of [...] Comment 06/05/2025 11:56 AM EDT [facility] Cctv Technician ID John, Milagros 06/05/2025 11:56 AM EDT [facility] Device ID [id number] 06/05/2025 11:56 AM EDT [facility] Specimen Type POC Capillary 06/05/2025 11:56 AM EDT [facility] Blood Capillary blood specimen / Unknown 06/05/2025 11:54 AM EDT 06/05/2025 11:56 AM EDT Mayra Rogers MD LAB POINT OF CARE TE ST DOCKED DEVICE UNSOLICITED RESULTS Final Result Performing Organization Address City/[facility]/ZIP Co de Phone Number [facility] [address] [place] [address] * (ABNORMAL) POCT glucose meter (06/05/2025 10:42 AM EDT) Pathologist [facility] POCT Glucose 102(H) 74 - 99 mg/dL 06/05/2025 10:44 AM EDT [facility] Comment:Accuracy of [...] Comment 06/05/2025 10:44 AM EDT [facility] Cctv Technician ID Milagros Lopez 06/05/2025 10:44 AM EDT [facility] Device ID [id number] 06/05/2025 10:44 AM EDT [facility] Specimen Type POC Capillary 06/05/2025 10:44 AM EDT [facility] Blood Capillary blood specimen / Unknown 06/05/2025 10:42 AM EDT 06/05/2025 10:44 AM EDT us Mayra Rogers MD LAB POINT OF CARE TE ST DOCKED DEVICE UNSOLICITED RESULTS Final Result Performing Organization Address [facility] Co de Phone Number [facility] [address] [place] [address] * POCT glucose meter (06/05/2025 9:42 AM EDT) [facility] POCT Glucose 89 74 - 99 mg/dL [...] for testing. Comment 06/05/2025 9:44 AM EDT [facility] Cctv Technician ID Milagros Lopez 06/05/2025 9:44 AM EDT [facility] Device ID [id number] 06/05/2025 9:44 AM EDT [facility] Specimen Type POC Capillary 06/05/2025 9:44 AM EDT [facility] Blood Capillary blood specimen / Unknown 06/05/2025 9:42 AM EDT 06/05/2025 9:44 AM EDT us Mayra Rogers MD LAB POINT OF CARE TE ST DOCKED DEVICE UNSOLICITED RESULTS Final Result [facility] [address] [place] [address] * POCT glucose meter (06/05/2025 9:06 AM EDT) [facility] POCT Glucose 87 74 - 99 mg/dL [...] 06/05/2025 9:08 AM EDT [facility] Cctv Technician ID JohnMilagros 06/05/2025 9:08 AM EDT [facility] Device ID [id number] 06/05/2025 9:08 AM EDT [facility] Specimen Type POC Capillary 06/05/2025 9:08 AM EDT [facility] Blood Capillary blood specimen / Unknown 06/05/2025 9:06 AM EDT 06/05/2025 9:08 AM EDT Mayra Rogers MD LAB POINT OF CARE TE ST DOCKED DEVICE UNSOLICITED RESULTS Final Result Performing Organization Address [facility] de Phone Number [facility] [address] [place] [address] * (ABNORMAL) POCT glucose meter (06/05/2025 4:57 AM EDT) [facility] POCT Glucose 105(H) 74 - 99 mg/dL [...] 06/05/2025 4:59 AM EDT [facility] Cctv Technician ID PhelanBely 06/05/2025 4:59 AM EDT [facility] Device ID [id number] 06/05/2025 4:59 AM EDT [facility] Specimen Type POC Capillary 06/05/2025 4:59 AM EDT [facility] Blood Capillary blood specimen / Unknown 06/05/2025 4:57 AM EDT 06/05/2025 4:59 AM EDT Mayra Rogers MD LAB POINT OF CARE TE ST DOCKED DEVICE UNSOLICITED RESULTS Final Result Performing Organization Address City/[facility]/ZIP Co de Phone Number [facility] [address] [place] [address] * (ABNORMAL) POCT glucose meter (06/05/2025 3:59 AM EDT) [facility] POCT Glucose 61(L) 74 - 99 mg/dL 06/05/2025 4:01 AM EDT [facility] Comment:Accuracy of [...] for testing. Comment 06/05/2025 4:01 AM EDT [facility] Cctv Technician ID Florence Phelan 06/05/2025 4:01 AM EDT [facility] Device ID [id number] 06/05/2025 4:01 AM EDT [facility] Specimen Type POC Capillary 06/05/2025 4:01 AM EDT [facility] Blood Capillary blood specimen / Unknown 06/05/2025 3:59 AM EDT 06/05/2025 4:01 AM EDT us Mayra Rogers MD LAB POINT OF CARE TE ST DOCKED DEVICE UNSOLICITED RESULTS Final Result Performing Organization Address City/[facility] Co de Phone Number [facility] [address] [place] [address] * (ABNORMAL) CBC and Differential (06/05/2025 2:21 AM EDT) [facility] WBC Count 8.76 3.70 - 10.30 10*3/uL LAB HEMATOLOGY METHOD 06/05/2025 2:52 AM EDT [facility] RBC Count 3.00(L) 3.90 - 5.20 10*6/uL LAB HEMATOLOGY METHOD 06/05/2025 2:52 AM EDT [facility] HGB 8.0(L) 11.2 - 15.7 g/dL LAB HEMATOLOGY METHOD 06/05/2025 2:52 AM EDT [facility] HCT 28.8(L) 34.0 - 45.0 % LAB HEMATOLOGY METHOD 06/05/2025 2:52 AM EDT [facility] Platelet Count 42(L) 155 - 369 10*3/uL LAB HEMATOLOGY METHOD 06/05/2025 2:52 AM EDT [facility] MCV 96 79 - 98 fL LAB HEMATOLOGY METHOD 06/05/2025 2:52 AM EDT [facility] MCH 26.7 26.0 - 32.0 pg LAB HEMATOLOGY METHOD 06/05/2025 2:52 AM EDT [facility] MCHC 27.8(L) 30.7 - 35.5 g/dL LAB HEMATOLOGY METHOD 06/05/2025 2:52 AM EDT [facility] RDW 15.8(H) 11.5 - 14.5 % LAB HEMATOLOGY METHOD 06/05/2025 2:52 AM EDT [facility] MPV LAB HEMATOLOGY METHOD 06/05/2025 2:52 AM EDT [facility] Comment:Not Measured nRBC 0.3(H) <=0.0 per 100 WBCs LAB HEMATOLOGY METHOD 06/05/2025 2:52 AM EDT [facility] Differential Type Automated LAB HEMATOLOGY METHOD 06/05/2025 2:52 AM EDT [facility] Neutrophils % 86 % LAB HEMATOLOGY METHOD 06/05/2025 2:52 AM EDT [facility] Lymphocytes % 6 % LAB HEMATOLOGY METHOD 06/05/2025 2:52 AM EDT [facility] Monocytes % 5 % LAB HEMATOLOGY METHOD 06/05/2025 2:52 AM EDT [facility] Eosinophils % 1 % LAB HEMATOLOGY METHOD 06/05/2025 2:52 AM EDT [facility] Basophils % 0 % LAB HEMATOLOGY METHOD 06/05/2025 2:52 AM EDT [facility] Immature Granulocytes % 2 % LAB HEMATOLOGY METHOD 06/05/2025 2:52 AM EDT [facility] Neutrophils Absolute 7.57(H) 1.60 - 6.10 10*3/uL LAB HEMATOLOGY METHOD 06/05/2025 2:52 AM EDT [facility] Lymphocytes Absolute 0.50(L) 1.20 - 3.90 10*3/uL LAB HEMATOLOGY METHOD 06/05/2025 2:52 AM EDT [facility] Monocytes Absolute 0.45 0.30 - 0.90 10*3/uL LAB HEMATOLOGY METHOD 06/05/2025 2:52 AM EDT [facility] Eosinophils Absolute 0.07 0.00 - 0.50 10*3/uL LAB HEMATOLOGY METHOD 06/05/2025 2:52 AM EDT [facility] Basophils Absolute 0.03 0.00 - 0.10 10*3/uL LAB HEMATOLOGY METHOD 06/05/2025 2:52 AM EDT [facility] Immature Granulocytes Absolute 0.14(H) 0.00 - 0.06 10*3/uL LAB HEMATOLOGY METHOD 06/05/2025 2:52 AM EDT [facility] Blood Venous blood specimen / Unknown Venipuncture / Unknown 06/05/2025 2:21 AM EDT 06/05/2025 2:36 AM EDT Narrative [facility] - 06/05/2025 2:52 AM EDT Therapeutic decision making should be based on absolute values, rather than percentages. us Faiza Garvin MD LAB BLOOD ORDERABLES Final Re sult [facility] [address] [place] [address] * (ABNORMAL) Comprehensive Metabolic Panel, Plasma (06/05/2025 2:21 AM EDT) Glucose, Plasma 66(L) 74 - 99 mg/dL 06/05/2025 3:04 AM EDT [facility] BUN, Plasma 47(H) 7 - 21 mg/dL 06/05/2025 3:04 AM EDT [facility] Creatinine, Plasma 3.34(H) 0.60 - 1.10 mg/dL 06/05/2025 3:04 AM EDT [facility] BUN/Creatinine Ratio 14 06/05/2025 3:04 AM EDT [facility] Sodium, Plasma 139 136 - 145 mmol/L 06/05/2025 3:04 AM EDT [facility] Potassium, Plasma 3.9 3.6 - 4.9 mmol/L 06/05/2025 3:04 AM EDT [facility] Chloride, Plasma 98 97 - 107 mmol/L 06/05/2025 3:04 AM EDT [facility] CO2, Plasma 23 22 - 29 mmol/L 06/05/2025 3:04 AM EDT [facility] Anion Gap 18(H) 6 - 16 mmol/L 06/05/2025 3:04 AM EDT [facility] Total Calcium, Plasma 8.0(L) 8.9 - 10.2 mg/dL 06/05/2025 3:04 AM EDT [facility] Total Protein 6.1(L) 6.3 - 7.9 g/dL 06/05/2025 3:04 AM EDT [facility] Albumin, Plasma 3.2(L) 3.5 - 5.2 g/dL 06/05/2025 3:04 AM EDT [facility] AST, Plasma 13 10 - 35 U/L 06/05/2025 3:04 AM EDT [facility] ALT, Plasma <5(L) 10 - 35 U/L 06/05/2025 3:04 AM EDT [facility] Alkaline Phosphatase, Plasma 191(H) 46 - 142 U/L 06/05/2025 3:04 AM EDT [facility] Total Bilirubin, Plasma 0.4 0.2 - 1.1 mg/dL 06/05/2025 3:04 AM EDT [facility] eGFRcr 15.6 mL/min/1.7 3m*2 06/05/2025 3:04 AM EDT [facility] Comment:Reported eGFRcr in m L/min/1.73m2 is based the CKD-EPI 2020 equation that does not use a race coefficient. Blood Venous blood specimen / Unknown Venipuncture / Unknown 06/05/2025 2:21 AM EDT 06/05/2025 2:35 AM EDT us Faiza Garvin MD LAB BLOOD ORDERABLES Final Re sult Performing Organization Address [facility]/ZIP Co de Phone Number [facility] [address] [place] [address] * Magnesium, Plasma (06/05/2025 2:21 AM EDT) Magnesium, Plasma 2.1 1.9 - 2.4 mg/dL 06/05/2025 3:04 AM EDT [facility] Blood Venous blood specimen / Unknown Venipuncture / Unknown 06/05/2025 2:21 AM EDT 06/05/2025 2:35 AM EDT us Faiza Garvin MD LAB BLOOD ORDERABLES Final Re sult Performing Organization Address [facility] Co de Phone Number [facility] [address] [place] [address] * Phosphorus, Plasma (06/05/2025 2:21 AM EDT) [facility] Phosphorus, Plasma 4.2 2.5 - 4.5 mg/dL 06/05/2025 3:04 AM EDT [facility] Blood Venous blood specimen / Unknown Venipuncture / Unknown 06/05/2025 2:21 AM EDT 06/05/2025 2:35 AM EDT us Faiza Garvin MD LAB BLOOD ORDERABLES Final Re sult Performing Organization Address City/[facility]/ZIP Co de Phone Number [facility] [address] [place] [address] * Acute Hepatitis Panel (06/05/2025 2:21 AM EDT) [facility] Hepatitis B Surf Antigen Negative Negative 06/05/2025 4:43 AM EDT [facility] Hepatitis C Antibody Negative Negative 06/05/2025 4:43 AM EDT [facility] Hepatitis A Antibody IgM Negative Negative 06/05/2025 4:43 AM EDT [facility] Hepatitis B Core Antibody IgM Negative Negative 06/05/2025 4:43 AM EDT [facility] Blood Venous blood specimen / Unknown Venipuncture / Unknown 06/05/2025 2:21 AM EDT 06/05/2025 2:35 AM EDT Mayra Rogers MD LAB BLOOD ORDERABLES Final Resul t Performing Organization Address [facility] [place] [address] * Hepatitis B Surface Antibody, Quantitative (06/05/2025 2:21 AM EDT) Hepatitis B Surface Antibody, Quantitative <8.00 NonReactiv e: <8, Grayzone: 8 - <12, Reactive: >= 12 mIU/mL 06/05/2025 5:18 AM EDT [facility] Comment: Nonreactive. Individual is considered not immune to HBV infection. 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 Ferris Secondary Cctv Technician: None Rad Dose: 3 mGy = Procedure: [...] over a guide wire for a 4 Ukrainian micropuncture sheath. The micropuncture sheath was exchanged for a 6 Ukrainian vascular sheath. 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 Ferris Secondary Cctv Technician: None Rad Dose: 3 mGy = Procedure: [...] exchangedover a guide wire for a 4 Ukrainian micropuncture sheath. The micropuncturesheath was exchanged for a 6 Ukrainian vascular sheath. 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 balloon with acceptable technical result.Digital subtraction angiography [...] by Medina Ferris on 06/04/2025 3:45 PM us Medina Ferris MD IMG ADELIA WADE Final Result * (ABNORMAL) CBC and Differential (06/04/2025 2:56 AM EDT) WBC Count 7.90 3.70 - 10.30 10*3/uL LAB HEMATOLOGY METHOD 06/04/2025 3:34 AM EDT [facility] RBC Count 2.97(L) 3.90 - 5.20 10*6/uL LAB HEMATOLOGY METHOD 06/04/2025 3:34 AM EDT [facility] HGB 7.9(L) 11.2 - 15.7 g/dL LAB HEMATOLOGY METHOD 06/04/2025 3:34 AM EDT [facility] HCT 28.4(L) 34.0 - 45.0 % LAB HEMATOLOGY METHOD 06/04/2025 3:34 AM EDT [facility] Platelet Count 42(L) 155 - 369 10*3/uL LAB HEMATOLOGY METHOD 06/04/2025 3:34 AM EDT [facility] MCV 96 79 - 98 fL LAB HEMATOLOGY METHOD 06/04/2025 3:34 AM EDT [facility] MCH 26.6 26.0 - 32.0 pg LAB HEMATOLOGY METHOD 06/04/2025 3:34 AM EDT [facility] MCHC 27.8(L) 30.7 - 35.5 g/dL LAB HEMATOLOGY METHOD 06/04/2025 3:34 AM EDT [facility] RDW 15.8(H) 11.5 - 14.5 % LAB HEMATOLOGY METHOD 06/04/2025 3:34 AM EDT [facility] MPV 13.5(H) 8.8 - 12.5 fL LAB HEMATOLOGY METHOD 06/04/2025 3:34 AM EDT [facility] nRBC 0.4(H) <=0.0 per 100 WBCs LAB HEMATOLOGY METHOD 06/04/2025 3:34 AM EDT [facility] Differential Type Automated LAB HEMATOLOGY METHOD 06/04/2025 3:34 AM EDT [facility] Neutrophils % 83 % LAB HEMATOLOGY METHOD 06/04/2025 3:34 AM EDT [facility] Lymphocytes % 8 % LAB HEMATOLOGY METHOD 06/04/2025 3:34 AM EDT [facility] Monocytes % 6 % LAB HEMATOLOGY METHOD 06/04/2025 3:34 AM EDT [facility] Eosinophils % 2 % LAB HEMATOLOGY METHOD 06/04/2025 3:34 AM EDT [facility] Basophils % 0 % LAB HEMATOLOGY METHOD 06/04/2025 3:34 AM EDT [facility] Immature Granulocytes % 1 % LAB HEMATOLOGY METHOD 06/04/2025 3:34 AM EDT [facility] Neutrophils Absolute 6.55(H) 1.60 - 6.10 10*3/uL LAB HEMATOLOGY METHOD 06/04/2025 3:34 AM EDT [facility] Lymphocytes Absolute 0.61(L) 1.20 - 3.90 10*3/uL LAB HEMATOLOGY METHOD 06/04/2025 3:34 AM EDT [facility] Monocytes Absolute 0.48 0.30 - 0.90 10*3/uL LAB HEMATOLOGY METHOD 06/04/2025 3:34 AM EDT [facility] Eosinophils Absolute 0.16 0.00 - 0.50 10*3/uL LAB HEMATOLOGY METHOD 06/04/2025 3:34 AM EDT [facility] Basophils Absolute 0.03 0.00 - 0.10 10*3/uL LAB HEMATOLOGY METHOD 06/04/2025 3:34 AM EDT [facility] Immature Granulocytes Absolute 0.07(H) 0.00 - 0.06 10*3/uL LAB HEMATOLOGY METHOD 06/04/2025 3:34 AM EDT [facility] Blood Venous blood specimen / Unknown Venipuncture / Unknown 06/04/2025 2:56 AM EDT 06/04/2025 3:24 AM EDT Narrative [facility] - 06/04/2025 3:34 AM EDT Therapeutic decision making should be based on absolute values, rather than percentages. us Faiza Garvin MD LAB BLOOD ORDERABLES Final Re sult [facility] [address] [place] [address] * (ABNORMAL) Comprehensive Metabolic Panel, Plasma (06/04/2025 2:56 AM EDT) Glucose, Plasma 79 74 - 99 mg/dL 06/04/2025 3:50 AM EDT [facility] BUN, Plasma 75(H) 7 - 21 mg/dL 06/04/2025 3:50 AM EDT [facility] Creatinine, Plasma 4.69(H) 0.60 - 1.10 mg/dL 06/04/2025 3:50 AM EDT [facility] BUN/Creatinine Ratio 16 06/04/2025 3:50 AM EDT [facility] Sodium, Plasma 137 136 - 145 mmol/L 06/04/2025 3:50 AM EDT [facility] Potassium, Plasma 3.6 3.6 - 4.9 mmol/L 06/04/2025 3:50 AM EDT [facility] Chloride, Plasma 96(L) 97 - 107 mmol/L 06/04/2025 3:50 AM EDT [facility] CO2, Plasma 23 22 - 29 mmol/L 06/04/2025 3:50 AM EDT [facility] Anion Gap 18(H) 6 - 16 mmol/L 06/04/2025 3:50 AM EDT [facility] Total Calcium, Plasma 8.1(L) 8.9 - 10.2 mg/dL 06/04/2025 3:50 AM EDT [facility] Total Protein 6.0(L) 6.3 - 7.9 g/dL 06/04/2025 3:50 AM EDT [facility] Albumin, Plasma 3.1(L) 3.5 - 5.2 g/dL 06/04/2025 3:50 AM EDT [facility] AST, Plasma 12 10 - 35 U/L 06/04/2025 3:50 AM EDT [facility] ALT, Plasma <5(L) 10 - 35 U/L 06/04/2025 3:50 AM EDT [facility] Alkaline Phosphatase, Plasma 189(H) 46 - 142 U/L 06/04/2025 3:50 AM EDT [facility] Total Bilirubin, Plasma 0.3 0.2 - 1.1 mg/dL 06/04/2025 3:50 AM EDT [facility] eGFRcr 10.4 mL/min/1.7 3m*2 06/04/2025 3:50 AM EDT [facility] Comment:Reported eGFRcr in m L/min/1.73m2 is based the CKD-EPI 2020 equation that does not use a race coefficient. Blood Venous blood specimen / Unknown Venipuncture / Unknown 06/04/2025 2:56 AM EDT 06/04/2025 3:24 AM EDT us Faiza Garvin MD LAB BLOOD ORDERABLES Final Re sult Performing Organization Address [facility]/ZIP Co de Phone Number [facility] [address] [place] [address] * Magnesium, Plasma (06/04/2025 2:56 AM EDT) Magnesium, Plasma 2.3 1.9 - 2.4 mg/dL 06/04/2025 3:50 AM EDT [facility] Blood Venous blood specimen / Unknown Venipuncture / Unknown 06/04/2025 2:56 AM EDT 06/04/2025 3:24 AM EDT Result Alex Garvin MD LAB BLOOD ORDERABLES Final Re sult Performing Organization Address [facility] Co de Phone Number [facility] [address] [place] [address] * (ABNORMAL) Phosphorus, Plasma (06/04/2025 2:56 AM EDT) Phosphorus, Plasma 5.7(H) 2.5 - 4.5 mg/dL 06/04/2025 3:50 AM EDT [facility] Blood Venous blood specimen / Unknown Venipuncture / Unknown 06/04/2025 2:56 AM EDT 06/04/2025 3:24 AM EDT us Faiza Garvin MD LAB BLOOD ORDERABLES Final Re sult Performing Organization Address City/[facility] Co de Phone Number [facility] [address] [place] [address] * (ABNORMAL) Hemoglobin and Hematocrit, Blood (06/03/2025 12:43 PM EDT) HGB 7.9(L) 11.2 - 15.7 g/dL LAB HEMATOLOGY METHOD 06/03/2025 2:01 PM EDT [facility] HCT 28.6(L) 34.0 - 45.0 % LAB HEMATOLOGY METHOD 06/03/2025 2:01 PM EDT [facility] Blood Venous blood specimen / Unknown Venipuncture / Unknown 06/03/2025 12:43 PM EDT 06/03/2025 2:01 PM EDT us Mayra Rogers MD LAB BLOOD ORDERABLES Final Resul t [facility] [address] [place] [address] * (ABNORMAL) CBC and Differential (06/03/2025 4:51 AM EDT) WBC Count 7.45 3.70 - 10.30 10*3/uL LAB HEMATOLOGY METHOD 06/03/2025 5:55 AM EDT [facility] RBC Count 2.97(L) 3.90 - 5.20 10*6/uL LAB HEMATOLOGY METHOD 06/03/2025 5:55 AM EDT [facility] HGB 8.1(L) 11.2 - 15.7 g/dL LAB HEMATOLOGY METHOD 06/03/2025 5:55 AM EDT [facility] HCT 28.7(L) 34.0 - 45.0 % LAB HEMATOLOGY METHOD 06/03/2025 5:55 AM EDT [facility] Platelet Count 44(L) 155 - 369 10*3/uL LAB HEMATOLOGY METHOD 06/03/2025 5:55 AM EDT [facility] MCV 97 79 - 98 fL LAB HEMATOLOGY METHOD 06/03/2025 5:55 AM EDT [facility] MCH 27.3 26.0 - 32.0 pg LAB HEMATOLOGY METHOD 06/03/2025 5:55 AM EDT [facility] MCHC 28.2(L) 30.7 - 35.5 g/dL LAB HEMATOLOGY METHOD 06/03/2025 5:55 AM EDT [facility] RDW 15.8(H) 11.5 - 14.5 % LAB HEMATOLOGY METHOD 06/03/2025 5:55 AM EDT [facility] MPV LAB HEMATOLOGY METHOD 06/03/2025 5:55 AM EDT [facility] Comment:Not Measured nRBC 0.4(H) <=0.0 per 100 WBCs LAB HEMATOLOGY METHOD 06/03/2025 5:55 AM EDT [facility] Differential Type Automated LAB HEMATOLOGY METHOD 06/03/2025 5:55 AM EDT [facility] Neutrophils % 83 % LAB HEMATOLOGY METHOD 06/03/2025 5:55 AM EDT [facility] Lymphocytes % 8 % LAB HEMATOLOGY METHOD 06/03/2025 5:55 AM EDT [facility] Monocytes % 6 % LAB HEMATOLOGY METHOD 06/03/2025 5:55 AM EDT [facility] Eosinophils % 2 % LAB HEMATOLOGY METHOD 06/03/2025 5:55 AM EDT [facility] Basophils % 0 % LAB HEMATOLOGY METHOD 06/03/2025 5:55 AM EDT [facility] Immature Granulocytes % 1 % LAB HEMATOLOGY METHOD 06/03/2025 5:55 AM EDT [facility] Neutrophils Absolute 6.12(H) 1.60 - 6.10 10*3/uL LAB HEMATOLOGY METHOD 06/03/2025 5:55 AM EDT [facility] Lymphocytes Absolute 0.60(L) 1.20 - 3.90 10*3/uL LAB HEMATOLOGY METHOD 06/03/2025 5:55 AM EDT [facility] Monocytes Absolute 0.46 0.30 - 0.90 10*3/uL LAB HEMATOLOGY METHOD 06/03/2025 5:55 AM EDT [facility] Eosinophils Absolute 0.17 0.00 - 0.50 10*3/uL LAB HEMATOLOGY METHOD 06/03/2025 5:55 AM EDT [facility] Basophils Absolute 0.03 0.00 - 0.10 10*3/uL LAB HEMATOLOGY METHOD 06/03/2025 5:55 AM EDT [facility] Immature Granulocytes Absolute 0.07(H) 0.00 - 0.06 10*3/uL LAB HEMATOLOGY METHOD 06/03/2025 5:55 AM EDT [facility] Blood Venous blood specimen / Unknown Venipuncture / Unknown 06/03/2025 4:51 AM EDT 06/03/2025 5:15 AM EDT Narrative [facility] - 06/03/2025 5:55 AM EDT Therapeutic decision making should be based on absolute values, rather than percentages. us Faiza Garvin MD LAB BLOOD ORDERABLES Final Re sult [facility] [address] [place] [address] * (ABNORMAL) Comprehensive Metabolic Panel, Plasma (06/03/2025 4:51 AM EDT) Glucose, Plasma 105(H) 74 - 99 mg/dL 06/03/2025 5:50 AM EDT [facility] BUN, Plasma 66(H) 7 - 21 mg/dL 06/03/2025 5:50 AM EDT [facility] Creatinine, Plasma 4.30(H) 0.60 - 1.10 mg/dL 06/03/2025 5:50 AM EDT [facility] BUN/Creatinine Ratio 15 06/03/2025 5:50 AM EDT [facility] Sodium, Plasma 138 136 - 145 mmol/L 06/03/2025 5:50 AM EDT [facility] Potassium, Plasma 3.4(L) 3.6 - 4.9 mmol/L 06/03/2025 5:50 AM EDT [facility] Chloride, Plasma 96(L) 97 - 107 mmol/L 06/03/2025 5:50 AM EDT [facility] CO2, Plasma 23 22 - 29 mmol/L 06/03/2025 5:50 AM EDT [facility] Anion Gap 19(H) 6 - 16 mmol/L 06/03/2025 5:50 AM EDT [facility] Total Calcium, Plasma 8.1(L) 8.9 - 10.2 mg/dL 06/03/2025 5:50 AM EDT [facility] Total Protein 6.0(L) 6.3 - 7.9 g/dL 06/03/2025 5:50 AM EDT [facility] Albumin, Plasma 3.3(L) 3.5 - 5.2 g/dL 06/03/2025 5:50 AM EDT [facility] AST, Plasma 13 10 - 35 U/L 06/03/2025 5:50 AM EDT [facility] ALT, Plasma <5(L) 10 - 35 U/L 06/03/2025 5:50 AM EDT [facility] Alkaline Phosphatase, Plasma 213(H) 46 - 142 U/L 06/03/2025 5:50 AM EDT [facility] Total Bilirubin, Plasma 0.3 0.2 - 1.1 mg/dL 06/03/2025 5:50 AM EDT [facility] eGFRcr 11.5 mL/min/1.7 3m*2 06/03/2025 5:50 AM EDT [facility] Comment:Reported eGFRcr in m L/min/1.73m2 is based the CKD-EPI 2020 equation that does not use a race coefficient. Blood Venous blood specimen / Unknown Venipuncture / Unknown 06/03/2025 4:51 AM EDT 06/03/2025 5:23 AM EDT Faiza Garvin MD LAB BLOOD ORDERABLES Final Re sult Performing Organization Address City/[facility]/ZIP Co de Phone Number [facility] [address] [place] [address] * Magnesium, Plasma (06/03/2025 4:51 AM EDT) Magnesium, Plasma 2.3 1.9 - 2.4 mg/dL 06/03/2025 5:50 AM EDT [facility] Blood Venous blood specimen / Unknown Venipuncture / Unknown 06/03/2025 4:51 AM EDT 06/03/2025 5:23 AM EDT Faiza Garvin MD LAB BLOOD ORDERABLES Final Re sult [facility] [address] [place] [address] * (ABNORMAL) Phosphorus, Plasma (06/03/2025 4:51 AM EDT) Phosphorus, Plasma 5.3(H) 2.5 - 4.5 mg/dL 06/03/2025 5:50 AM EDT [facility] Blood Venous blood specimen / Unknown Venipuncture / Unknown 06/03/2025 4:51 AM EDT 06/03/2025 5:23 AM EDT us Faiza Garvin MD LAB BLOOD ORDERABLES Final Re sult Performing Organization Address [facility] Co de Phone Number [facility] [address] [place] [address] * (ABNORMAL) Hemoglobin and Hematocrit, Blood (06/02/2025 5:50 PM EDT) [facility] HGB 8.3(L) 11.2 - 15.7 g/dL LAB HEMATOLOGY METHOD 06/02/2025 6:03 PM EDT [facility] HCT 29.0(L) 34.0 - 45.0 % LAB HEMATOLOGY METHOD 06/02/2025 6:03 PM EDT [facility] Blood Venous blood specimen / Unknown Venipuncture / Unknown 06/02/2025 5:50 PM EDT 06/02/2025 5:57 PM EDT us Mayra Rogers MD LAB BLOOD ORDERABLES Final Resul t Performing Organization Address [facility] Co de Phone Number [facility] [address] [place] [address] * VAS US Hemodialysis Access Left (06/02/2025 [...] is no recent study available for direct [id number] comparison. Unable to complete study due to [...] is no recent study available for direct [id number] comparison. us Faiza Garvin MD CV ECHO PROCEDURES Final Resu lt * (ABNORMAL) Free T4, Plasma (06/02/2025 4:07 AM EDT) Free T4, Plasma 0.6(L) 0.8 - 1.7 ng/dL 06/02/2025 6:15 PM EDT [facility] Blood Venous blood specimen / Unknown Venipuncture / Unknown 06/02/2025 4:07 AM EDT 06/02/2025 4:26 AM EDT us Mayra Rogers MD LAB BLOOD ORDERABLES Final Resul t Performing Organization Address City/[facility]/ZIP Co de Phone Number [facility] [address] [place] [address] * (ABNORMAL) TSH Reflex FT4 (06/02/2025 4:07 AM EDT) Thyroid Stimulating Hormone, Plasma 23.70(H) 0.40 - 4.20 uIU/mL 06/02/2025 5:37 PM EDT [facility] Blood Venous blood specimen / Unknown Venipuncture / Unknown 06/02/2025 4:07 AM EDT 06/02/2025 4:26 AM EDT us Mayra Rogers MD LAB BLOOD ORDERABLES Final Resul t Performing Organization Address City/[facility]/ZIP Co de Phone Number [facility] [address] [place] [address] * (ABNORMAL) CBC and Differential (06/02/2025 4:07 AM EDT) WBC Count 6.73 3.70 - 10.30 10*3/uL LAB HEMATOLOGY METHOD 06/02/2025 6:07 AM EDT [facility] RBC Count 2.89(L) 3.90 - 5.20 10*6/uL LAB HEMATOLOGY METHOD 06/02/2025 6:07 AM EDT [facility] HGB 7.7(L) 11.2 - 15.7 g/dL LAB HEMATOLOGY METHOD 06/02/2025 6:07 AM EDT [facility] HCT 27.9(L) 34.0 - 45.0 % LAB HEMATOLOGY METHOD 06/02/2025 6:07 AM EDT [facility] Platelet Count LAB HEMATOLOGY METHOD 06/02/2025 6:07 AM EDT [facility] Comment:Interfering substanc e present, platelets appear decreased. Recollect recommended. MCV 97 79 - 98 fL LAB HEMATOLOGY METHOD 06/02/2025 6:07 AM EDT [facility] MCH 26.6 26.0 - 32.0 pg LAB HEMATOLOGY METHOD 06/02/2025 6:07 AM EDT [facility] MCHC 27.6(L) 30.7 - 35.5 g/dL LAB HEMATOLOGY METHOD 06/02/2025 6:07 AM EDT [facility] RDW 15.3(H) 11.5 - 14.5 % LAB HEMATOLOGY METHOD 06/02/2025 6:07 AM EDT [facility] MPV LAB HEMATOLOGY METHOD 06/02/2025 6:07 AM EDT [facility] Comment:Not Measured nRBC 0.3(H) <=0.0 per 100 WBCs LAB HEMATOLOGY METHOD 06/02/2025 6:07 AM EDT [facility] Differential Type Automated LAB HEMATOLOGY METHOD 06/02/2025 6:07 AM EDT [facility] Neutrophils % 84 % LAB HEMATOLOGY METHOD 06/02/2025 6:07 AM EDT [facility] Lymphocytes % 7 % LAB HEMATOLOGY METHOD 06/02/2025 6:07 AM EDT [facility] Monocytes % 6 % LAB HEMATOLOGY METHOD 06/02/2025 6:07 AM EDT [facility] Eosinophils % 2 % LAB HEMATOLOGY METHOD 06/02/2025 6:07 AM EDT [facility] Basophils % 1 % LAB HEMATOLOGY METHOD 06/02/2025 6:07 AM EDT [facility] Immature Granulocytes % 0 % LAB HEMATOLOGY METHOD 06/02/2025 6:07 AM EDT [facility] Neutrophils Absolute 5.62 1.60 - 6.10 10*3/uL LAB HEMATOLOGY METHOD 06/02/2025 6:07 AM EDT [facility] Lymphocytes Absolute 0.50(L) 1.20 - 3.90 10*3/uL LAB HEMATOLOGY METHOD 06/02/2025 6:07 AM EDT [facility] Monocytes Absolute 0.41 0.30 - 0.90 10*3/uL LAB HEMATOLOGY METHOD 06/02/2025 6:07 AM EDT [facility] Eosinophils Absolute 0.13 0.00 - 0.50 10*3/uL LAB HEMATOLOGY METHOD 06/02/2025 6:07 AM EDT [facility] Basophils Absolute 0.04 0.00 - 0.10 10*3/uL LAB HEMATOLOGY METHOD 06/02/2025 6:07 AM EDT [facility] Immature Granulocytes Absolute 0.03 0.00 - 0.06 10*3/uL LAB HEMATOLOGY METHOD 06/02/2025 6:07 AM EDT [facility] Blood Venous blood specimen / Unknown Venipuncture / Unknown 06/02/2025 4:07 AM EDT 06/02/2025 4:09 AM EDT Narrative [facility] - 06/02/2025 6:07 AM EDT Therapeutic decision making should be based on absolute values, rather than percentages. us Faiza Garvin MD LAB BLOOD ORDERABLES Final Re sult [facility] [address] [place] [address] * (ABNORMAL) Comprehensive Metabolic Panel, Plasma (06/02/2025 4:07 AM EDT) Glucose, Plasma 132(H) 74 - 99 mg/dL 06/02/2025 4:55 AM EDT [facility] BUN, Plasma 61(H) 7 - 21 mg/dL 06/02/2025 4:55 AM EDT [facility] Creatinine, Plasma 3.90(H) 0.60 - 1.10 mg/dL 06/02/2025 4:55 AM EDT [facility] BUN/Creatinine Ratio 16 06/02/2025 4:55 AM EDT [facility] Sodium, Plasma 136 136 - 145 mmol/L 06/02/2025 4:55 AM EDT [facility] Potassium, Plasma 3.6 3.6 - 4.9 mmol/L 06/02/2025 4:55 AM EDT [facility] Chloride, Plasma 96(L) 97 - 107 mmol/L 06/02/2025 4:55 AM EDT [facility] CO2, Plasma 22 22 - 29 mmol/L 06/02/2025 4:55 AM EDT [facility] Anion Gap 18(H) 6 - 16 mmol/L 06/02/2025 4:55 AM EDT [facility] Total Calcium, Plasma 8.1(L) 8.9 - 10.2 mg/dL 06/02/2025 4:55 AM EDT [facility] Total Protein 6.0(L) 6.3 - 7.9 g/dL 06/02/2025 4:55 AM EDT [facility] Albumin, Plasma 3.0(L) 3.5 - 5.2 g/dL 06/02/2025 4:55 AM EDT [facility] AST, Plasma 20 10 - 35 U/L 06/02/2025 4:55 AM EDT [facility] ALT, Plasma <5(L) 10 - 35 U/L 06/02/2025 4:55 AM EDT [facility] Alkaline Phosphatase, Plasma 194(H) 46 - 142 U/L 06/02/2025 4:55 AM EDT [facility] Total Bilirubin, Plasma 0.3 0.2 - 1.1 mg/dL 06/02/2025 4:55 AM EDT [facility] eGFRcr 12.9 mL/min/1.7 3m*2 06/02/2025 4:55 AM EDT [facility] Comment:Reported eGFRcr in m L/min/1.73m2 is based the CKD-EPI 2020 equation that does not use a race coefficient. Blood Venous blood specimen / Unknown Venipuncture / Unknown 06/02/2025 4:07 AM EDT 06/02/2025 4:26 AM EDT us Faiza Garvin MD LAB BLOOD ORDERABLES Final Re sult [facility] [address] [place] [address] * Magnesium, Plasma (06/02/2025 4:07 AM EDT) [facility] Magnesium, Plasma 2.3 1.9 - 2.4 mg/dL 06/02/2025 4:55 AM EDT [facility] Blood Venous blood specimen / Unknown Venipuncture / Unknown 06/02/2025 4:07 AM EDT 06/02/2025 4:26 AM EDT Faiza Garvin MD LAB BLOOD ORDERABLES Final Re sult [facility] [address] [place] [address] * (ABNORMAL) Phosphorus, Plasma (06/02/2025 4:07 AM EDT) [facility] Phosphorus, Plasma 4.8(H) 2.5 - 4.5 mg/dL 06/02/2025 4:55 AM EDT [facility] Blood Venous blood specimen / Unknown Venipuncture / Unknown 06/02/2025 4:07 AM EDT 06/02/2025 4:26 AM EDT Faiza Garvin MD LAB BLOOD ORDERABLES Final Re sult [facility] [address] [place] [address] * SARS-CoV-2, Flu A, Flu B, and RSV - Rapid (06/01/2025 6:53 PM EDT) [facility] SARS CoV-2/COVID-19 RNA PCR Result Not Detected Not Detected 06/01/2025 7:59 PM EDT [facility] Influenza A Virus PCR Result Not Detected Not Detected 06/01/2025 7:59 PM EDT [facility] Influenza B Virus PCR Result Not Detected Not Detected 06/01/2025 7:59 PM EDT [facility] Respiratory Syncytial Virus (RSV) PCR Result Not Detected Not Detected 06/01/2025 7:59 PM EDT [facility] Swab Nasopharyngeal structure / Unknown Non-blood Collection / Unknown 06/01/2025 6:53 PM EDT 06/01/2025 7:02 PM EDT Narrative [facility] - 06/01/2025 7:59 PM EDT This [...] clinical signs and symptoms consistent with COVID-19. Faiza Garvin MD LAB MICROBIOLOGY - GENERAL OR DERABLES Final Result Performing Organization Address City/[facility]/ZIP Co de Phone Number [facility] [address] [place] [address] * Blood Culture (Aerobic/Anaerobet Set) (06/01/2025 6:52 PM EDT) Culture No growth at day 5 06/06/2025 8:[address] [facility] Blood Structure of right hand / Unknown Venipuncture / Unknown 06/01/2025 6:52 PM EDT 06/01/2025 7:03 PM EDT [facility] - 06/06/2025 8:01 PM EDT Low blood volume submitted, results may be compromised Faiza Garvin MD LAB MICROBIOLOGY - GENERAL OR DERABLES Final Result [facility] [address] [place] [address] * Blood Culture (Aerobic/Anaerobet Set) (06/01/2025 6:52 PM EDT) Culture No growth at day 5 06/06/2025 8:01 PM EDT [facility] Blood Structure of right wrist region / Unknown Venipuncture / Unknown 06/01/2025 6:52 PM EDT 06/01/2025 7:03 PM EDT Narrative [facility] - 06/06/2025 8:01 PM EDT Low blood volume submitted, results may be compromised Faiza Garvin MD LAB MICROBIOLOGY - GENERAL OR DERABLES Final Result [facility] [address] [place] [address] * XR Chest 1 View (06/01/2025 5:10 [...] - STAT (adult) (06/01/2025 4:57 PM EDT) EKG DIAGNOSIS CLASS Abnormal MUSE ECG Ventricular Rate 48 BPM MUSE ECG Atrial Rate 48 BPM MUSE ECG [place] Interval 154 ms MUSE ECG QRSD Interval 114 ms MUSE ECG QT Interval 478 ms MUSE ECG QTC Interval 427 ms MUSE ECG P [place] 54 degrees MUSE ECG R [place] 116 degrees MUSE ECG T Wave [place] -12 degrees MUSE ECG Diagnosis Sinus bradycardia with premature atrial complexes with aberrant conduction MUSE ECG Diagnosis Low voltage QRS MUSE ECG Diagnosis Possible , old Anterior infarct MUSE ECG Diagnosis Left posterior fascicular block MUSE ECG Diagnosis Nonspecific T wave abnormality MUSE ECG Diagnosis Abnormal ECG MUSE ECG Diagnosis MUSE ECG Diagnosis Confirmed by Michael Garner ([id number]) on 06/02/2025 10:26:53 AM MUSE ECG 06/01/2025 4:57 PM EDT 06/02/2025 10:26 AM EDT us Klarissa Monterroso DO ECG ORDERABLES Final Result MUSE ECG * (ABNORMAL) BNP (06/01/2025 4:47 PM EDT) N-Terminal, PROBNP, Plasma >70,000(H) 0 - 899 pg/mL 06/01/2025 10:34 PM EDT [facility] Blood Venous blood specimen / Unknown Venipuncture / Unknown 06/01/2025 4:47 PM EDT 06/01/2025 4:53 PM EDT us Faiza Garvin MD LAB BLOOD ORDERABLES Final Re sult [facility] [address] [place] [address] * (ABNORMAL) Blood gas panel, venous (06/01/2025 4:47 PM EDT) pH, Venous 7.34 7.32 - 7.43 LAB HEMATOLOGY METHOD 06/01/2025 4:54 PM EDT [facility] pCO2, Venous 51 37 - 52 mmHg LAB HEMATOLOGY METHOD 06/01/2025 4:54 PM EDT [facility] pO2, Venous 39 25 - 40 mmHg LAB HEMATOLOGY METHOD 06/01/2025 4:54 PM EDT [facility] SO2, Measured, Venous 66 65 - 80 % LAB HEMATOLOGY METHOD 06/01/2025 4:54 PM EDT [facility] Base Excess, Venous 1.5 -2.0 - 3.0 mmol/L LAB HEMATOLOGY METHOD 06/01/2025 4:54 PM EDT [facility] Bicarbonate, Calculated, Venous 28(H) 22 - 26 mmol/L LAB HEMATOLOGY METHOD 06/01/2025 4:54 PM EDT [facility] Hematocrit, Whole Blood 26.2(L) 34.0 - 45.0 % LAB HEMATOLOGY METHOD 06/01/2025 4:54 PM EDT [facility] Sodium, Whole Blood 138 136 - 145 mmol/L LAB HEMATOLOGY METHOD 06/01/2025 4:54 PM EDT [facility] Potassium, Whole Blood 3.3(L) 3.6 - 4.9 mmol/L LAB HEMATOLOGY METHOD 06/01/2025 4:54 PM EDT [facility] Chloride, Whole Blood 96(L) 97 - 107 mmol/L LAB HEMATOLOGY METHOD 06/01/2025 4:54 PM EDT [facility] Glucose, Whole Blood 158(H) 74 - 99 mg/dL LAB HEMATOLOGY METHOD 06/01/2025 4:54 PM EDT [facility] Lactate, Venous, Whole Blood 0.8 0.5 - 2.2 mmol/L LAB HEMATOLOGY METHOD 06/01/2025 4:54 PM EDT [facility] Ionized Calcium, Whole Blood 4.5(L) 4.6 - 5.1 mg/dL LAB HEMATOLOGY METHOD 06/01/2025 4:54 PM EDT [facility] Blood Venous blood specimen / Unknown Venipuncture / Unknown 06/01/2025 4:47 PM EDT 06/01/2025 4:53 PM EDT [employer] Klarissa Montes [employer] DO LAB BLOOD ORDERABLES Final Re sult Performing Organization Address City/[facility]/ZIP Co de Phone Number [facility] [address] [place] [address] * (ABNORMAL) Phosphorus (06/01/2025 4:47 PM EDT) Phosphorus, Plasma 4.7(H) 2.5 - 4.5 mg/dL 06/01/2025 5:16 PM EDT [facility] Blood Venous blood specimen / Unknown Venipuncture / Unknown 06/01/2025 4:47 PM EDT 06/01/2025 4:53 PM EDT [employer] Klarissa Montes [employer] DO LAB BLOOD ORDERABLES Final Re sult [facility] [address] [place] [address] * Magnesium (06/01/2025 4:47 PM EDT) Magnesium, Plasma 2.4 1.9 - 2.4 mg/dL 06/01/2025 5:16 PM EDT [facility] Blood Venous blood specimen / Unknown Venipuncture / Unknown 06/01/2025 4:47 PM EDT 06/01/2025 4:53 PM EDT [employer] DO LAB BLOOD ORDERABLES Final Re sult [facility] [address] [place] [address] * (ABNORMAL) CBC (06/01/2025 4:47 PM EDT) WBC Count 6.37 3.70 - 10.30 10*3/uL LAB HEMATOLOGY METHOD 06/01/2025 5:00 PM EDT [facility] RBC Count 3.11(L) 3.90 - 5.20 10*6/uL LAB HEMATOLOGY METHOD 06/01/2025 5:00 PM EDT [facility] HGB 8.6(L) 11.2 - 15.7 g/dL LAB HEMATOLOGY METHOD 06/01/2025 5:00 PM EDT [facility] HCT 30.3(L) 34.0 - 45.0 % LAB HEMATOLOGY METHOD 06/01/2025 5:00 PM EDT [facility] Platelet Count 46(L) 155 - 369 10*3/uL LAB HEMATOLOGY METHOD 06/01/2025 5:00 PM EDT [facility] MCV 97 79 - 98 fL LAB HEMATOLOGY METHOD 06/01/2025 5:00 PM EDT [facility] MCH 27.7 26.0 - 32.0 pg LAB HEMATOLOGY METHOD 06/01/2025 5:00 PM EDT [facility] MCHC 28.4(L) 30.7 - 35.5 g/dL LAB HEMATOLOGY METHOD 06/01/2025 5:00 PM EDT [facility] RDW 15.4(H) 11.5 - 14.5 % LAB HEMATOLOGY METHOD 06/01/2025 5:00 PM EDT [facility] MPV LAB HEMATOLOGY METHOD 06/01/2025 5:00 PM EDT [facility] Comment:Not Measured nRBC 0.0 <=0.0 per 100 WBCs LAB HEMATOLOGY METHOD 06/01/2025 5:00 PM EDT [facility] Blood Venous blood specimen / Unknown Venipuncture / Unknown 06/01/2025 4:47 PM EDT 06/01/2025 4:53 PM EDT us Klarissa Monterroso DO LAB BLOOD ORDERABLES Final Re sult [facility] [address] [place] [address] * (ABNORMAL) CMP (06/01/2025 4:47 PM EDT) Glucose, Plasma 166(H) 74 - 99 mg/dL 06/01/2025 5:16 PM EDT [facility] BUN, Plasma 57(H) 7 - 21 mg/dL 06/01/2025 5:16 PM EDT [facility] Creatinine, Plasma 3.87(H) 0.60 - 1.10 mg/dL 06/01/2025 5:16 PM EDT [facility] BUN/Creatinine Ratio 15 06/01/2025 5:16 PM EDT [facility] Sodium, Plasma 138 136 - 145 mmol/L 06/01/2025 5:16 PM EDT [facility] Potassium, Plasma 3.4(L) 3.6 - 4.9 mmol/L 06/01/2025 5:16 PM EDT [facility] Chloride, Plasma 96(L) 97 - 107 mmol/L 06/01/2025 5:16 PM EDT [facility] CO2, Plasma 25 22 - 29 mmol/L 06/01/2025 5:16 PM EDT [facility] Anion Gap 17(H) 6 - 16 mmol/L 06/01/2025 5:16 PM EDT [facility] Total Calcium, Plasma 8.3(L) 8.9 - 10.2 mg/dL 06/01/2025 5:16 PM EDT [facility] Total Protein 6.4 6.3 - 7.9 g/dL 06/01/2025 5:16 PM EDT [facility] Albumin, Plasma 3.3(L) 3.5 - 5.2 g/dL 06/01/2025 5:16 PM EDT [facility] AST, Plasma 19 10 - 35 U/L 06/01/2025 5:16 PM EDT [facility] ALT, Plasma <5(L) 10 - 35 U/L 06/01/2025 5:16 PM EDT [facility] Alkaline Phosphatase, Plasma 224(H) 46 - 142 U/L 06/01/2025 5:16 PM EDT [facility] Total Bilirubin, Plasma 0.3 0.2 - 1.1 mg/dL 06/01/2025 5:16 PM EDT [facility] eGFRcr 13.1 mL/min/1.7 3m*2 06/01/2025 5:16 PM EDT [facility] Comment:Reported eGFRcr in m L/min/1.73m2 is based the CKD-EPI 2020 equation that does not use a race coefficient. 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 History of glaucoma [...] Coronary atherosclerosis of unspecified type of vessel, chitimacha or graft Anemia Unspecified anemia Severe protein-calorie [...] modification) on Tue06/10/25 at 0900, Until Discontinued Given 06/10/2025 2:03 [...] on Tue06/03/25 at 2100, Until Discontinued, Routine Given 06/10/2025 [...] daily, First dose (after last modification) on Joellen 06/06/25 at 0900, Until Discontinued, Routine Given 06/07/2025 [...] times daily with meals, First dose on 06/03/25 at 0830, Until Discontinued, RoutineIndications:ESRD on Dialysis [...] modification) on 06/10/25 at 0900, Until Discontinued 1403 (Given - Provid er: Mayra Shankar RN) amLODIPine (Norvasc) tablet 5 mg (CANCELED) 5 mg, Oral, Daily, First dose (after last modification) on 06/08/25 at 0900, Until Discontinued 1000 (Given - Provider: Hazel Pham RN) 0857 (Given - Provider: Hazel Pham RN) aspirin chewable tablet 81 mg 81 mg, Oral, Daily, First dose on 06/02/25 at 1610, Until Discontinued, Routine 1000 (Given - Provider: Hazel Pham RN) 0831 (Given - Provider: Hazel Pham RN) 0849 (Not Given - Provider: Mayra Shankar RN - Reason: Patient/family refused) atorvastatin (Lipitor) tablet 80 mg 80 mg, Oral, Nightly, First dose on 06/02/25 at 2100, Until Discontinued 2100 (Given - Provider: Aranza Santos RN) 213 (Given - Provider: Sabrina Lazcano, CHAO) carvedilol (Coreg) tablet 12.5 mg 12.5 mg, [...] 2100 (Given - Provider: Aranza Santos RN) 213 (Given - Provider: Sabrina Lazcano, CHAO) escitalopram [...] on 06/03/25 at 2100, Until Discontinued, Routine 1000 (Given - Provider: Hazel Pham RN)2101 (Given - Provider: Aranza Santos RN) 0857 (Given - Provider: Hazel Pham RN)2147 (Given - Provider: Sabrina Lazcano RN) 0851 (Given - Provider: Mayra Shankar, CHAO) ezetimibe (Zetia) tablet 10 mg 10 mg, Oral, Daily, First dose on Tue06/02/25 at 0900, Until Discontinued, Routine 1000 (Given [...] at 1400, Until Tue06/10/25 at 1854, Routine PRN Medication Order 06/08/2025 06/09/2025 06/10/2025 bisacodyl (Dulcolax) suppository 10 mg 10 mg, Rectal, Daily PRN, Starting on Tue06/09/25 at 1700, Until Tue06/10/25 at 1854, Routine, constipation oxyCODONE (Roxicodone) immediate release tablet 10 mg 10 mg, Oral, Every 6 hours PRN, Starting on Tue06/09/25 at 0845, Until Tue06/10/25 at 1854, STAT, severe pain 1300 (Given - Provider: Hazel Pham RN)1700 (Given - Provider: Hazel Pham RN)2339 (Given - Provider: Sabrina Lazcano RN) 1035 (Given - Provider: Lizzette Cho RN) oxyCODONE (Roxicodone) immediate release tablet 5 mg (CANCELED) 5 mg, Oral, Every 6 hours PRN, Starting on Tue06/02/25 at 0036, Until Tue06/09/25 at 0846, STAT, severe pain 0249 (Given - Provider: Aranza Santos, RN)1049 (Given - Provider: Hazel Pham, RN)1050 (Canceled Entry - Provider: Hazel Pham, RN)1629 (Given - Provider: Hazel Pham, RN)2236 (Given - Provider: Aranza Santos, RN) 0834 (Given - Provider: Hazel Pham, RN) documented in this encounter Additional Health [...] documented as of this encounter Care Teams Nursing Care Partner Relationship Specialty Start Date End Date Rosemarie Riley APRN [address] [place] [address] PCP - General 04/02/25 Haydee Mccloud Manufacturing Controller Creative Services Director 06/03/25 06/25/25 documented as of this encounter
--- OUTSIDE RECORDS SUMMARY | 2025-06-23 17:27 | XMS_ITS | Encounter Summary ---
Author Organization [employer] ([place], [place], [place], [place], [place]) Address [address] [place] [address] Care Team Providers Care Maintenance Job Titles Name Role Phone Osmani Becker MD Primary Care Provider [phone] Mindy Mckeon MD Unavailable Reason for Visit * Auth/Cert (Routine) Specialty Diagnoses / Procedures Referred By Contshakeel t Referred To Contact Diagnoses Fluid overload Fluid overload [address] Tele[address] [place] [address] Phone: tel: fax: [address] [place] [address] Phone: tel: fax: Referral ID Status Reason Start Date Expiration Date Visits Re quested Visits Authorized [id number] 1 1 Encounter Details Date Type Department Care Team (Late st Contact Info) Description 06/23/2025 6:27 PM EDT - 06/29/2025 3:55 PM EDT Hospital Encounter [address] Tele[address] [place] [address] Dajuan Banuelos MD [address] [place], [place] [phone] Vlad Waters PA-C [address] [place] [address] Mundo Díaz MD [address] [place] [address] Mass of lung; Pleural effusion on right [...] your living situation today? I have a [facility] place to live 06/23/2025 Think about the [...] Do you speak a language other than Citizen [place] at [facility]? No 06/23/2025 Do you want [...] CKD, COPD, hypertension, and hypothyroidism presents to [facility] in [place], [place] for further evaluation andmanagement of shortness [...] effusion likebefore . Patient sought evaluation at [facility] where patient was found to be in acute CHF exacerbation, NSTEMI, and with moderate pleural effusion. Patient was subsequently transferred to [facility] for nephrology coverage and higher level of [...] Range POC-GLUCOSE 83 70 - 110 mg/dL Care Management Associate [id number] Glucose, Nova Meter Status: None Collection Time: 06/28/25 7:58 PM Result Value Ref Range POC-GLUCOSE 107 70 - 110 mg/dL Care Management Associate [id number] Glucose, Nova Meter Status: Abnormal Collection Time: 06/29/25 6:06 AM Result Value Ref Range POC-GLUCOSE 181 (H) 70 - 110 mg/dL Care Management Associate [id number] CBC with Automated Diff Status: Abnormal Collection [...] Your Medications These medications were sent to [facility] at [facility] [address] [place] [address] [address] [facility] [place] [address] [address] aspirin 81 MG chewable tablet hydrALAZINE 25 MG tablet ipratropium-albuteroL 0.5 mg-3 mg(2.5 mg base)/3 mL nebulizer solution nitroglycerin 0.4 MG SL tablet Contact information for follow-up Osmani Becker MD Specialty: General Internal Medicine Relationship: PCP - General [address] [place] [address] [address] [place] [address] Next Steps: Go on 07/04/2025 Instructions: appt time is 11am Nephrology Next Steps: Go to Instructions: As needed, follow up with nephrology at [facility] Next Steps: Follow up Instructions: Resume your hemodialysis Tuesday, Tuesday, Tuesday schedule. Discharge Disposition: Home. Time spent on Discharge: > 30 minutes Signed: Electronically signed by Mundo Díaz MD - 06/28/2025 - 8:20 AM EDT [facility] Physician documented in this encounter Discharge Instructions * Attachments The following attachments cannot be sent through Care Everywhere. * Blood Transfusion Adult (Citizen [place]) documented in this encounter Medications at Time [...] Note Sent referral for home oxygen to [facility] ([facility]) Plan for delivery by 1700 [...] on 1L NC. At rest- 95% * Nichole Pop RN - 06/28/2025 5:23 PM EDT 06/28/25 1707 Vitals Temp 97.8 ??F (36.6 ??C) Temp [...] CHF,ESRD, COPD, hypertension, and hypothyroidism presented to [facility] in [place], [place] for further evaluation and management of shortness of breath. Patient states she missed dialysis on Tuesday due to a family member passing away. Patient sought evaluation at [facility] where patient was found to be in acute CHF exacerbation, NSTEMI, and with moderate pleural effusion. Patient was subsequently transferred to [facility] for nephrology coverage and higher level of [...] Range POC-GLUCOSE 105 70 - 110 mg/dL Care Management Associate [id number] CBC with automated diff Status: Abnormal Collection [...] POC-GLUCOSE 111 (H) 70 - 110 mg/dL Care Management Associate [id number] Glucose, Nova Meter Status: Abnormal Collection Time: 06/28/25 11:20 AM Result Value Ref Range POC-GLUCOSE 116 (H) 70 - 110 mg/dL Care Management Associate [id number] ECHO COMPLETE (DOPPLER / COLOR) W OR WO CONTRAST TRANSTHORACIC ECHOCARDIOGRAPHY REPORT Demographics Patient Name: VIET VORA : 1970 Age: 55 year(s) Corporate ID Number: [id number] Gender Female 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 Garcia, Height: 67 inches [facility] Referring Physician: ADEBAYO TORRES Weight: 132 pounds [...] 0.43 m/s E/A ratio: 2.58 m/s Volume xrillklfz043.01 LV length: 8.52 cm ml Volume yloabovv38.42 ml LVOT diameter: 1.7 cm Normal sized [...] Valve TR velocity: 4.33 m/s TR gradient: 75.74555 mmHg Estimated RAP: 15 mmHg RVSP: 90.15 [...] pleural effusion. ATTENDING RADIOLOGIST: Dr. Rebolledo. PHYSICIAN JITTERBUG OPERATOR: Kalyan Wisdom PA-C. TECHNIQUE: Informed consent was [...] given the above comorbidities -Thanks for consultation [facility] [address] [place], [place], [address] Phone #[phone] Fax #[phone] High complex case * Nichole Pop RN [...] Drawn 06/24/25 HBs AG result Negative Machine [id number] Machine Conductivity 13.7 QC pH 7.2 Machine Temperature 37.1 Test Completed Yes Chlorine / Chloramine 1st Check Time 1016 Chlorine / Chloramine Result <0.1 Reverse Osmosis [id number] Alarm Test Passed Treatment Type UF and [...] General Internal Medicine Relationship: PCP - General [facility] [place] [address] [facility] [address] Next Steps: Go on 07/04/2025 Instructions: appt time is 11am [facility] Next Steps: Go to Instructions: As needed, follow up with nephrology at dialysis [facility] Next Steps: Follow up Instructions: Resume your hemodialysis Tuesday, Tuesday, Tuesday schedule. Transporation Provider: (P) Wade- son Transporation Contact Name: Transportation Provider Phone: Date of engraving supervisor: (P) 06/28/25 Time of engraving supervisor: Discussed D/c planning with pt's son Wade. [...] voice. Will attempt to visit again. Chaplain Adrain 06/28/2025 12:49 PM * Mundo Díaz MD [...] 0606 06/28/25195706/28/25 1850 06/28/25 0534 06/28/25 0234 06/27/25195806/27/25 19506/27/25 0514 06/27/25 0306 06/26/25 0509 06/26/25 0118 06/25/25 1046 06/25/25 1026 10/04/129 06/24/25212106/24/2545606/23/25 1395 WBC K/ L 5.2 -- -- -- [...] > 198* < > 166* < > -- < [...] Range POC-GLUCOSE 83 70 - 110 mg/dL Care Management Associate [id number] Glucose, Nova Meter Status: None Collection Time: 06/28/25 7:58 PM Result Value Ref Range POC-GLUCOSE 107 70 - 110 mg/dL Care Management Associate [id number] Glucose, Nova Meter Status: Abnormal Collection Time: 06/29/25 6:06 AM Result Value Ref Range POC-GLUCOSE 181 (H) 70 - 110 mg/dL Care Management Associate [id number] CBC with Automated Diff Status: Abnormal Collection [...] BID w/breakfast & dinner 12.5 mg at 06/29/25 0824 doxazosin 2 mg oral BID 2 mg at 06/29/25 0823 hydrALAZINE 75 mg oral 4x Daily 75 mg at 06/29/25 0823 insulin lispro 0-12 Units subcutaneous 4x Daily [...] BID Dajuan Banuelos MD 250 mg at 06/29/25 08 aspirin EC tablet 81 mg 81 mg oral Daily Vlad Waters PA-C 81 mg at 06/29/25825 atorvastatin (LIPITOR) tablet 40 mg 40 mg oral Every Night Vlad Waters PA-C 40 mg at 06/28/252029 budesonide (PULMICORT) nebulizer suspension 0.5 mg 0.5 mg nebulization 2 times daily Vlad Waters PA-C 0.5 mg at 06/28/254 carvediloL (COREG) tablet 12.5 mg 12.5 mg [...] Nichole Pop RN - 06/28/2025 11:47 AM EDTSumramuy: Dialysis Tried for the 4th time to get report on the patient. Was told to call back once again. Will continue to charge for the wait time. * Nichole Pop RN - 06/28/2025 11:10 AM EDTSumramuy: Dialysis Dialysis nurse has called unit x [...] EDT Subjective History of Present Illness: Mar Wadlron is a 55 y.o. female with a history of arthritis, CHF,ESRD, COPD, hypertension, and hypothyroidism presented to [facility] in [place], [place] for further evaluation and management of shortness of breath. Patient states she missed dialysis on Tuesday due to a family member passing away. Patient sought evaluation at [facility] where patient was found to be in acute CHF exacerbation, NSTEMI, and with moderate pleural effusion. Patient was subsequently transferred to [facility] for nephrology coverage and higher level of [...] Range POC-GLUCOSE 105 70 - 110 mg/dL Care Management Associate [id number] CBC with automated diff Status: Abnormal Collection [...] POC-GLUCOSE 111 (H) 70 - 110 mg/dL Care Management Associate [id number] Glucose, Nova Meter Status: Abnormal Collection Time: 06/28/25 11:20 AM Result Value Ref Range POC-GLUCOSE 116 (H) 70 - 110 mg/dL Care Management Associate [id number] ECHO COMPLETE (DOPPLER / COLOR) W OR WO CONTRAST TRANSTHORACIC ECHOCARDIOGRAPHY REPORT Demographics Patient Name: VIET VORA : 1970 Age: 55 year(s) Corporate ID Number: [id number] Gender Female 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 Patient Status: ALICE Study Location: [facility] Quality: Adequate visualization History/Tech Notes: Indication: [...] 0.43 m/s E/A ratio: 2.58 m/s Volume fdyvxdewj731.01 LV length: 8.52 cm ml Volume wqmlfadd90.42 ml LVOT diameter: 1.7 cm Normal sized [...] Valve TR velocity: 4.33 m/s TR gradient: 75.55886 mmHg Estimated RAP: 15 mmHg RVSP: 90.15 [...] pleural effusion. ATTENDING RADIOLOGIST: Dr. Rebolledo. PHYSICIAN JITTERBUG OPERATOR: Kalyan Wisdom PA-C. TECHNIQUE: Informed consent was [...] given the above comorbidities -Thanks for consultation [facility] [address] [place], [place], [address] Phone #[phone] Fax #[phone] High complex case * Kylah Munguia RN [...] Units 06/28/25 1120 06/28/25 0534 06/28/25 0234 06/27/25 1959 06/27/25 1953 06/27/25 0514 06/27/25 0306 06/26/25 1056 06/26/25 0811 06/26/25 0509 06/26/25 0118 06/25/25 1046 06/25/25 1026 06/25/25 0459 06/24/252 06/24/2545606/23/257 WBC K/ L -- -- 4.9 -- [...] POC-GLUCOSE 156 (H) 70 - 110 mg/dL Care Management Associate [id number] Hemoglobin and hematocrit Status: Abnormal Collection Time: 06/27/25 7:53 PM Result Value Ref Range Hemoglobin 8.7 (L) 11.2 - 15.7 GM/DL Hematocrit 28.7 (L) 34.1 - 44.9 % Glucose, Nova Meter Status: None Collection Time: 06/27/25 7:59 PM Result Value Ref Range POC-GLUCOSE 105 70 - 110 mg/dL Care Management Associate [id number] CBC with automated diff Status: Abnormal Collection [...] POC-GLUCOSE 111 (H) 70 - 110 mg/dL Care Management Associate [id number] Glucose, Nova Meter Status: Abnormal Collection Time: 06/28/25 11:20 AM Result Value Ref Range POC-GLUCOSE 116 (H) 70 - 110 mg/dL Care Management Associate [id number] Radiology: XR chest 2 views Final Result [...] mg oral Every Night 40 mg at 06/27/253 budesonide 0.5 mg nebulization 2 times daily [...] BID Dajuan Banuelos MD 250 mg at 06/28/25 1132 [...] Vlad Waters PA-C 5 mg at 06/26/25 203 morphine injection 2 mg 2 mg intravenous Q4H PRN Vlad Waters PA-C naloxone (NARCAN) injection 0.2 mg 0.2 mg intravenous Q2 Min PRN Dajuna Banuelos MD nitroglycerin (NITROSTAT) tablet 0.4 mg [...] Mckeon MD - 06/27/2025 5:23 AM EDT [facility] Basic Information: Name Mar Waldron, [...] total) by mouth 2 (two) times daily. HistoricalProvider, ezetimibe (ZETIA) 10 mg tablet Take 1 [...] tablet 40 mg 40 mg oral Daily lVad Waters PA-C 40 mg at 06/26/25 0817 [...] 1970 Age: 55 year(s) Corporate ID Number: [id number] Gender Female 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 Patient Status: ALICE Study Location: [facility] Quality: Adequate visualization History/Tech Notes: Indication: [...] 0.43 m/s E/A ratio: 2.58 m/s Volume llubcepgb581.01 LV length: 8.52 cm ml Volume .42 [...] Valve TR velocity: 4.33 m/s TR gradient: 75.61796 mmHg Estimated RAP: 15 mmHg RVSP: 90.15 [...] pleural effusion. ATTENDING RADIOLOGIST: Dr. Rebolledo. PHYSICIAN JITTERBUG OPERATOR: Kalyan Wisdom PA-C. TECHNIQUE: Informed consent was [...] overload Impression and Plan: IMPRESSION: Non-ST elevation NC Acute combined systolic and diastolic heart failure [...] Range POC-GLUCOSE 89 70 - 110 mg/dL Care Management Associate [id number] PTT Heparin Protocol Status: Abnormal Collection Time: 06/25/25 6:21 PM Result Value Ref Range PTT Heparin 44.6 (L) 45 - 65 seconds Glucose, Nova Meter Status: Abnormal Collection Time: 06/25/25 7:08 PM Result Value Ref Range POC-GLUCOSE 143 (H) 70 - 110 mg/dL Care Management Associate [id number] Hemoglobin and hematocrit Status: Abnormal Collection Time: [...] POC-GLUCOSE 147 (H) 70 - 110 mg/dL Care Management Associate [id number] PTT Heparin Protocol Status: Abnormal Collection Time: [...] POC-GLUCOSE 143 (H) 70 - 110 mg/dL Care Management Associate [id number] Radiology: XR chest 2 views Final Result [...] mg oral 4x Daily 75 mg at 06/25/251 insulin lispro 0-12 Units subcutaneous 4x Daily AC 2 Units at 06/26/25 0632 isosorbide mononitrate 120 mg oral Daily 120 mg at 06/26/2517 levothyroxine 88 mcg oral QAM (0600) 88 [...] & dinner Vlad Waters PA-C 12.5mg at 06/26/25816 cloNIDine (CATAPRES) tablet 0.1 mg 0.1 mg [...] mg 0.2 mg intravenous Q2 Min PRN Djauan Banuelos MD nitroglycerin (NITROSTAT) tablet 0.4 mg [...] CHF,ESRD, COPD, hypertension, and hypothyroidism presented to [facility] in [place], [place] for further evaluation and management of shortness of breath. Patient states she missed dialysis on Tuesday due to a family member passing away. Patient sought evaluation at [facility] where patient was found to be in acute CHF exacerbation, NSTEMI, and with moderate pleural effusion. Patient was subsequently transferred to [facility] for nephrology coverage and higher level of [...] POC-GLUCOSE 143 (H) 70 - 110 mg/dL Care Management Associate [id number] PTT Heparin Protocol Status: Abnormal Collection Time: 06/26/25 6:24 PM Result Value Ref Range PTT Heparin 29.3 (L) 45 - 65 seconds Glucose, Nova Meter Status: Abnormal Collection Time: 06/26/25 8:12 PM Result Value Ref Range POC-GLUCOSE 117 (H) 70 - 110 mg/dL Care Management Associate [id number] PTT Heparin Protocol Status: Abnormal Collection Time: [...] POC-GLUCOSE 193 (H) 70 - 110 mg/dL Care Management Associate [id number] Prepare RBC: 1 Units Status: None (Preliminary result) Collection Time: 06/27/25 9:47 AM Result Value Ref Range Product Identification Red Blood Cells Product Code I5477C13 Status Information READY Unit Number [id number] Blood Type 9500 Cross Match Results Compatible ECHO COMPLETE (DOPPLER / COLOR) W OR WO CONTRAST TRANSTHORACIC ECHOCARDIOGRAPHY REPORT Demographics Patient Name: VIET VORA : 1970 Age: 55 year(s) Corporate ID Number: [id number] Gender Female 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 Patient Status: ALICE [facility]: Adequate [facility] History/Tech Notes: Indication: shortness [...] 0.43 m/s E/A ratio: 2.58 m/s Volume tzqxlmoez138.01 LV length: 8.52 cm ml Volume felwhlaz98.42 ml LVOT diameter: 1.7 cm Normal sized [...] Valve TR velocity: 4.33 m/s TR gradient: 75.87392 mmHg Estimated RAP: 15 mmHg RVSP: 90.15 [...] reviewed, interpreted, and dictated by Dr. Nas Reboleldo. Transcribed by Kalyan Wisdom PA-C US THORACENTESIS LT Narrative: ULTRASOUND-GUIDED THORACENTESIS WITH TUBE INSERTION HISTORY: Left pleural effusion. ATTENDING RADIOLOGIST: Dr. Rebolledo. PHYSICIAN JITTERBUG OPERATOR: Kalyan Wisdom PA-C. TECHNIQUE: Informed consent was [...] given the above comorbidities -Thanks for consultation [facility] [address] [place], [place], [address] Phone #[phone] Fax #[phone] High complex case * Mindy Mckeon MD - 06/26/2025 6:45 AM EDT [facility] Basic Information: Name Mar Waldron DOB 1970, 55 y.o., female PCP: Osmani Becker MD Admit Date 06/23/2025 Patient Location [id number] Chief Complaint/Consult reason: Short of breath short [...] dinner Vlad Waters PA-C 12.5mg at 06/25/25 171 cloNIDine (CATAPRES) tablet 0.1 mg 0.1 mg [...] 1970 Age: 55 year(s) Corporate ID Number: [id number] Gender Female 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 Patient Status: ALICE Study Location: [facility] Quality: Adequate visualization History/Tech Notes: Indication: [...] 0.43 m/s E/A ratio: 2.58 m/s Volume naedpxdat694.01 LV length: 8.52 cm ml Volume xwdfqyic30.42 ml LVOT diameter: 1.7 cm Normal sized [...] Valve TR velocity: 4.33 m/s TR gradient: 75.63553 mmHg Estimated RAP: 15 mmHg RVSP: 90.15 [...] pleural effusion. ATTENDING RADIOLOGIST: Dr. Rebolledo. PHYSICIAN JITTERBUG OPERATOR: Kalyan Wisdom PA-C. TECHNIQUE: Informed consent was [...] overload Impression and Plan: IMPRESSION: Non-ST elevation NC Acute combined systolic and diastolic heart failure [...] CHF,ESRD, COPD, hypertension, and hypothyroidism presented to [facility] in [place], [place] for further evaluation and management of shortness of breath. Patient states she missed dialysis on Tuesday due to a family member passing away. Patient sought evaluation at [facility] where patient was found to be in acute CHF exacerbation, NSTEMI, and with moderate pleural effusion. Patient was subsequently transferred to [facility] for nephrology coverage and higher level of [...] POC-GLUCOSE 143 (H) 70 - 110 mg/dL Care Management Associate [id number] PTT Heparin Protocol Status: Abnormal Collection Time: 06/26/25 6:24 PM Result Value Ref Range PTT Heparin 29.3 (L) 45 - 65 seconds Glucose, Nova Meter Status: Abnormal Collection Time: 06/26/25 8:12 PM Result Value Ref Range POC-GLUCOSE 117 (H) 70 - 110 mg/dL Care Management Associate [id number] PTT Heparin Protocol Status: Abnormal Collection Time: [...] POC-GLUCOSE 193 (H) 70 - 110 mg/dL Care Management Associate [id number] Prepare RBC: 1 Units Status: None (Preliminary result) Collection Time: 06/27/25 9:47 AM Result Value Ref Range Product Identification Red Blood Cells Product Code [id number] Status Information READY Unit Number [id number] Blood Type 9500 Cross Match Results Compatible ECHO COMPLETE (DOPPLER / COLOR) W OR WO CONTRAST TRANSTHORACIC ECHOCARDIOGRAPHY REPORT Demographics Patient Name: VIET VORA : 1970 Age: 55 year(s) Corporate ID Number: [id number] Gender Female 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 Garcia, Height: 67 inches [facility] Referring Physician: ADEBAYO TORRES Weight: 132 pounds [...] 0.43 m/s E/A ratio: 2.58 m/s Volume pgqifqiih449.01 LV length: 8.52 cm ml Volume wxvohgsn00.42 ml LVOT diameter: 1.7 cm Normal sized [...] Valve TR velocity: 4.33 m/s TR gradient: 75.60254 mmHg Estimated RAP: 15 mmHg RVSP: 90.15 [...] pleural effusion. ATTENDING RADIOLOGIST: Dr. Rebolledo. PHYSICIAN JITTERBUG OPERATOR: Kalyan Wisdom PA-C. TECHNIQUE: Informed consent was [...] given the above comorbidities -Thanks for consultation [facility] [address] [place], [place], [address] Phone #[phone] Fax #[phone] High complex case * Mundo Díaz MD [...] 06/24/25 0633 06/24/25 0632 06/24/25 0457 06/23/25 5740 06/23/252025 WBC K/??L 4.1 -- 4.8 -- [...] POC-GLUCOSE 124 (H) 70 - 110 mg/dL Care Management Associate [id number] PTT Heparin Protocol Status: Normal Collection Time: [...] 0 % Body Fluid/CSF - Path Review (SJ) Status: None Collection Time: 06/24/25 2:06 PM Result Value Ref Range Differential Comment Macrophages and blood. No malignancy seen. Manoj Cai MD 06-24-2025 Glucose, Nova Meter Status: None Collection Time: 06/24/25 8:40 PM Result Value Ref Range POC-GLUCOSE 89 70 - 110 mg/dL Care Management Associate [id number] PTT Heparin Protocol Status: Abnormal Collection Time: [...] Range POC-GLUCOSE 82 70 - 110 mg/dL Care Management Associate [id number] CBC with automated diff Status: Abnormal Collection [...] oral Daily levothyroxine 88 mcg oral QAM (0600) 88 mcg at 06/25/25 06 pantoprazole 40 mg oral Daily 40 [...] Mckeon MD - 06/25/2025 5:44 AM EDT [facility] Basic Information: Name Mar Waldron, [...] Night Vlad Waters PA-C 40 mg at 06/24/25 2030 budesonide (PULMICORT) nebulizer suspension 0.5 mg 0.5 [...] 1970 Age: 55 year(s) Corporate ID Number: [id number] Gender Female 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 Patient Status: [facility]: Adequate visualization History/Tech Notes: Indication: shortness [...] 0.43 m/s E/A ratio: 2.58 m/s Volume barznfelj197.01 LV length: 8.52 cm ml Volume yvggsght92.42 ml LVOT diameter: 1.7 cm Normal sized [...] Valve TR velocity: 4.33 m/s TR gradient: 75.65165 mmHg Estimated RAP: 15 mmHg RVSP: 90.15 [...] pleural effusion. ATTENDING RADIOLOGIST: Dr. Rebolledo. PHYSICIAN JITTERBUG OPERATOR: Kalyan Wisdom PA-C. TECHNIQUE: Informed consent was [...] overload Impression and Plan: IMPRESSION: Non-ST elevation NC Acute combined systolic and diastolic heart failure [...] Drawn 06/24/25 HBs AG result Negative Machine [id number] Machine Conductivity 13.7 QC pH 7.4 Machine Temperature 37.1 Test Completed Yes Chlorine / Chloramine 1st Check Time 1415 Chlorine / Chloramine Result <0.1 Reverse Osmosis [id number] Alarm Test Passed Treatment Type UF and [...] Services In home services Type of Home/Self [facility] with family care Type of Home Care Services None Does the patient have the ability to fill and receive their discharge medications? Yes Discharge Plan Discussed The discharge plan was discussed with patient. Discharge Plan Outcome Patient/family insurance account representative agrees with the discharge plan Discharge [...] (P) Home Mandated Reporting: (P) Not applicable PT/OT/REFRIGERATING OILER Recommendations PT Recommendations: OT Recommendations: REFRIGERATING OILER Recommendations: CM able to complete Initial Assessment with johnathan Olvera, Wade able to provide HIPAA validation, present, pt asleep. Son plans for pt to go back home once discharge, Wade alfaro will beproviding transport and pt will continue with HD [facility]. Johnathan alfaro pt uses wheelchair for long distances and uses walker for shorter distances. Johnathan alfaro pt uses [facility] and currently does not have any financial issues, [facility] is able to pay for food, groceries, [...] 68 BPM ATRIAL RATE (MCT) 68 BPM MN Interval 140 ms QRS-INTERVAL (MSEC) 116 ms QT Interval 440 ms QTC Interval 467 ms P [place] 89 degrees R AXIS (MCT) 118 degrees T Wave [place] -57 degrees [place] Diagnosis Normal sinus rhythm Right axis deviation [...] Range POC-GLUCOSE 108 70 - 110 mg/dL Care Management Associate [id number] High Sensitivity Troponin I Status: Abnormal Collection [...] POC-GLUCOSE 124 (H) 70 - 110 mg/dL Care Management Associate [id number] PTT Heparin Protocol Status: Normal Collection Time: [...] pleural effusion. ATTENDING RADIOLOGIST: Dr. Rebolledo. PHYSICIAN JITTERBUG OPERATOR: Kalyan Wisdom PA-C. TECHNIQUE: Informed consent was [...] reviewed and discussed the patient's care with residential sales consultant: Medications: aspirin 81 mg oral Daily 81 mg at 06/24/25904 atorvastatin 40 mg oral Every Night budesonide 0.5 mg nebulization 2 times daily 0.5 mg at 06/23/252044 carvediloL 12.5 mg oral BID w/breakfast & dinner 12.5 mg at 06/24/25903 hydrALAZINE 20 mg intravenous TID 20 mg at 06/24/25903 insulin lispro 0-12 Units subcutaneous 4x Daily AC levothyroxine 88 mcg oral QAM (599) 88 mcg at 06/24/25 0613 pantoprazole 40 mg oral Daily 40 mg at 06/24/25 09 Current Facility-Administered Medications Medication Dose Route Frequency [...] sources. -Continuous telemetry monitoring. NSTEMI/. Type 2 NC -Troponin elevated at 2560.3 (patient does have [...] CKD, COPD, hypertension, and hypothyroidism presents to [facility] in [place], [place] for further evaluation andmanagement of shortness [...] effusion likebefore . Patient sought evaluation at [facility] where patient was found to be in acute CHF exacerbation, NSTEMI, and with moderate pleural effusion. Patient was subsequently transferred to [facility] for nephrology coverage and higher level of [...] NUMBNESS Lisinopril Other (See Comments) Cough Documented PRODUCT TECHNOLOGY SCIENTIST Medications: Medications Prior to Admission Medication Sig [...] output data in the 24 hours ending 06/24/25 0255 Physical Exam Vitals reviewed. Constitutional: General: [...] 68 BPM ATRIAL RATE (MCT) 68 BPM MN Interval 140 ms QRS-INTERVAL (MSEC) 116 ms QT Interval 440 ms QTC Interval 467 ms P [place] 89 degrees R AXIS (MCT) 118 degrees T Wave [place] -57 degrees [place] Diagnosis Normal sinus rhythm Right axis deviation [...] Value Units Date/Time XR chest AP portable [[id number]] Collected: 06/23/252330 Order Status: Completed Updated: 06/23/252332 [...] Titrated Vlad Waters PA-C 7.1 mL/hr at 06/24/254 12 Units/kg/hr at 06/24/2553 hydrALAZINE (APRESOLINE) injection 20 mg 20 mg [...] EGD and colonoscopy earlier this year in [place] but procedures were canceled. Iron studies consistent [...] Feeling Lonely or Isolated: 0 Allergies: Basaglar Uniqueikpen U-100 Insulin [Insulin Glargine] and Lisinopril Inpatient [...] PRN, Vlad Waters PA-C, 0.1 mg at 06/24/25 121 dextrose 50% (D50W) injection 25 g, 25 [...] AC, Vlad Waters PA-C, 4 Units at 06/27/2539 ipratropium-albuteroL (DUO-NEB) 0.5 mg-3 mg(2.5 mg base)/3 mL nebulizer solution 3 mL, 3 mL, nebulization, Q6H PRN, Vlad Waters PA-C isosorbide mononitrate (IMDUR) 24 hr tablet 120 mg, 120 mg, oral, Daily, Dajuan Banuelos MD, 120 mg at 06/27/25901 levothyroxine (SYNTHROID) tablet 88 mcg, 88 mcg, oral, QAM (0600), Vlad Waters PA-C, 88 mcg at 06/27/25 0639 LORazepam (ATIVAN) tablet 0.5 mg, 0.5 mg, [...] POC-GLUCOSE 117 (H) 70 - 110 mg/dL Care Management Associate [id number] PTT Heparin Protocol Status: Abnormal Collection Time: [...] POC-GLUCOSE 193 (H) 70 - 110 mg/dL Care Management Associate [id number] Prepare RBC: 1 Units Status: None Collection Time: 06/27/25 9:47 AM Result Value Ref Range Issue Date/Time [id number] Product Identification Red Blood Cells Product Code [id number] Status Information TRANSFUSED Unit Number [id number] Blood Type 9500 Cross Match Results Compatible PTT Heparin Protocol Status: Abnormal Collection Time: 06/27/25 10:07 AM Result Value Ref Range PTT Heparin 29.7 (L) 45 - 65 seconds Glucose, Nova Meter Status: Abnormal Collection Time: 06/27/25 11:32 AM Result Value Ref Range POC-GLUCOSE 156 (H) 70 - 110 mg/dL Care Management Associate [id number] Radiology Results (last 3 days) Procedure Component Value Units Date/Time XR chest 2 views [[id number]] Collected: 06/24/25 1507 Order Status: Completed Updated: [...] by Kalyan Wisdom PA-C US THORACENTESIS LT [[id number]] Collected: 06/24/25 1423 Order Status: Completed Updated: 06/24/251456 Narrative: ULTRASOUND-GUIDED THORACENTESIS WITH TUBE INSERTION HISTORY: Left pleural effusion. ATTENDING RADIOLOGIST: Dr. Rebolledo. PHYSICIAN JITTERBUG OPERATOR: Kalyan Wisdom PA-C. TECHNIQUE: Informed consent was [...] at for volume overload, who presented to [facility] on 06/23 with shortness of breath. She was found to have an acute CHF exacerbation and NSTEMI, with a moderate left pleural effusion. She was subsequently transferred to [facility] on 06/23 for nephrology coverage and higher [...] a past medical history of Arthritis, Cancer ([facility]), CHF (congestive heart failure) ([facility]), Chronic kidney disease requiring chronic dialysis ([facility]), COPD (chronic obstructive pulmonary disease) ([facility]), Hypertension, Murmur, and Thyroid disease. Past Surgical [...] by mouth 3 (three) times a week TUE/TUE/SAT Administered at dialysis as directed . carvediloL [...] CHF,ESRD, COPD, hypertension, and hypothyroidism presented to [facility] in [place], [place] for further evaluation and management of shortness of breath. Patient states she missed dialysis on Tuesday due to a family member passing away. Patient sought evaluation at [facility] where patient was found to be in acute CHF exacerbation, NSTEMI, and with moderate pleural effusion. Patient was subsequently transferred to [facility] for nephrology coverage and higher level of [...] 68 BPM ATRIAL RATE (MCT) 68 BPM MN Interval 140 ms QRS-INTERVAL (MSEC) 116 ms QT Interval 440 ms QTC Interval 467 ms P [place] 89 degrees R AXIS (MCT) 118 degrees T Wave [place] -57 degrees [place] Diagnosis Normal sinus rhythm Right axis deviation [...] Range POC-GLUCOSE 108 70 - 110 mg/dL Care Management Associate [id number] High Sensitivity Troponin I Status: Abnormal Collection [...] given the above comorbidities -Thanks for consultation [facility] [address] [place], [place], [address] Phone #[phone] Fax #[phone] High complex case Electronically signed by Blaine Moreno MD 06/24/2025 at 10:36 AM * Mindy Mckeon MD - 06/24/2025 7:52 AM EDTAssociated Order(s): FS_MODEL_IP IP CONSULT TO CARDIOLOGY [facility] - Consult Note Basic Information: Name Mar Waldron, 1970, 55 [...] dyslipidemia, COPD, thyroid dysfunction who presented to [facility] via outside facility with complaints of shortness [...] QAM (06) GARCIA Villagran 88 mcg at 06/24/25 0613 [...] overload Impression and Plan: IMPRESSION: Non-ST elevation NC Acute heart failure End-stage renal disease on [...] Outcome: Progressing * Plan of Care - Kuldip Barbosa MD - 06/28/2025 12:53 PM EDT concurrent [...] POC Routine 06/28/2025 11:2 0 AM EDT FS_SJ_MODEL_HEMODIAL YSIS INPATIENT Routine 06/28/2025 9:35 AM EDT [...] GLUCOSE POC Routine 06/27/2025 5:14 AM EDT [facility] CBC SCAN Routine 06/27/2025 3:06 AM EDT CBC W/ AUTO DIFF Routine 06/27/2025 3:06 AM EDT MAGNESIUM Routine 06/27/2025 3:06 AM EDT COMPREHENSIVE METABOLIC PANEL Routine 06/27/2025 3:06 AM EDT PTT HEPARIN PROTOCOL Routine 06/26/2025 11:57 PM EDT NOVA GLUCOSE POC Routine 06/26/2025 8:12 PM EDT PTT HEPARIN PROTOCOL Routine 06/26/2025 6:24 PM EDT NOVA GLUCOSE POC Routine 06/26/2025 10:5 6 AM EDT [facility] CBC SCAN Routine 06/26/2025 8:11 AM EDT CBC W/ AUTO DIFF Routine 06/26/2025 8:11 AM EDT PTT HEPARIN PROTOCOL Routine 06/26/2025 8:11 AM EDT NOVA GLUCOSE POC Routine 06/26/2025 5:09 AM EDT [facility] CBC SCAN Routine 06/26/2025 1:18 AM EDT [...] HEPARIN PROTOCOL Routine 06/25/2025 7:47 AM EDT [facility] CBC SCAN Routine 06/25/2025 7:46 AM EDT CBC W/ AUTO DIFF Routine 06/25/2025 7:46 AM EDT NOVA GLUCOSE POC Routine 06/25/2025 4:59 AM EDT [facility] CBC SCAN Routine 06/24/2025 9:22 PM EDT CBC W/ AUTO DIFF STAT 06/24/2025 9:22 PM EDT PTT HEPARIN PROTOCOL Routine 06/24/2025 9:22 PM EDT PT/INR, PTT STAT 06/24/2025 9:22 PM EDT NOVA GLUCOSE POC Routine 06/24/2025 8:40 PM EDT XR CHEST PA AND LATERAL STAT 06/24/2025 2:15 PM EDT US THORACENTESIS LT Routine 06/24/2025 2 :09 PM EDT H DIFFERENTIAL, BODY FLUID Routine 06/24/2025 2:06 PM EDT Mass of lung Pleural effusion on right CYTOLOGY ([facility]) AP Routine 06/24/2025 2:06 PM EDT Mass [...] METABOLIC PANEL Routine 06/24/2025 6:33 AM EDT [facility] CBC SCAN Routine 06/24/2025 6:32 AM EDT [...] FS_MODEL_IP_ECG 12-LEAD STAT 06/23/2025 10:44 PM EDT [facility] CBC SCAN Routine 06/23/2025 8:26 PM EDT CBC W/ AUTO DIFF STAT 06/23/2025 8:26 PM EDT HIGH SENSITIVITY TROPONIN I STAT 06/23/2025 8:26 PM EDT COMPREHENSIVE METABOLIC PANEL STAT 06/23/2025 8:26 PM EDT EKG-SCANNED 06/23/2025 documented in this encounter Results * (ABNORMAL) CBC with Automated Diff (06/29/2025 10:30 AM EDT) [facility] WBC 5.2 4.0 - 10.0 K/ L 06/29/2025 10:47 AM EDT [facility] RBC 3.10(L) 3.93 - 5.22 M/ L 06/29/2025 10:47 AM EDT [facility] Hemoglobin 8.8(L) 11.2 - 15.7 GM/DL 06/29/2025 10:47 AM EDT [facility] Hematocrit 29.2(L) 34.1 - 44.9 % 06/29/2025 10:47 AM EDT [facility] MCV 94 79 - 95 fL 06/29/2025 10:47 AM EDT [facility] MCH 28.4 25.6 - 32.2 pg 06/29/2025 10:47 AM EDT [facility] MCHC 30.1(L) 32.2 - 35.5 GM/DL 06/29/2025 10:47 AM EDT [facility] RDW 18.5(H) 11.7 - 14.4 % 06/29/2025 10:47 AM EDT [facility] Platelets 51(L) 140 - 375 K/CU MM 06/29/2025 10:47 AM EDT [facility] MPV 11.1 9.4 - 12.3 fL 06/29/2025 10:47 AM EDT [facility] % Neutros 72(H) 34 - 71 % 06/29/2025 10:47 AM EDT [facility] % Lymphs 16(L) 19 - 52 % 06/29/2025 10:47 AM EDT [facility] % Monos 7 5 - 13 % 06/29/2025 10:47 AM EDT [facility] % Eos 4 1 - 6 % 06/29/2025 10:47 AM EDT [facility] % Baso 1 0 - 1 % 06/29/2025 10:47 AM EDT [facility] NRBC Absolute <0.01 0 - 0.012 K/ul 06/29/2025 10:47 AM EDT [facility] # Neutros 3.78 1.56 - 6.13 K/ L 06/29/2025 10:47 AM EDT [facility] # Lymphs 0.81(L) 1.18 - 3.74 K/ L 06/29/2025 10:47 AM EDT [facility] # Monos 0.37 0.24 - 0.86 K/ L 06/29/2025 10:47 AM EDT [facility] # Eos 0.22 0.04 - 0.36 K/ L 06/29/2025 10:47 AM EDT [facility] # Baso 0.04 0.01 - 0.08 K/ L 06/29/2025 10:47 AM EDT [facility] % Imm Grans 0.40 0.01 - 0.43 % 06/29/2025 10:47 AM EDT [facility] # IG <0.03 0.00 - 0.03 K/uL 06/29/2025 10:47 AM EDT [facility] Blood Venipuncture / Unknown 06/29/2025 10:30 AM EDT 06/29/2025 10:35 AM EDT Narrative [facility] - 06/29/2025 10:47 AM EDT When [...] MD LAB BLOOD ORDERABLES Final Resul t [facility] [address] [phone] * (ABNORMAL) Glucose, Nova Meter (06/29/2025 6:06 AM EDT) POC-GLUCOSE 181(H) 70 - 110 mg/dL 06/29/2025 6:07 AM EDT [facility] Comment: In the event of poor peripheral blood flow, venous or arterial blood should be used due to the potential of erroneous results. Notified Nurse RBV Care Management Associate [id number] 06/29/2025 6:07 AM EDT [facility] Blood WHOLE BLOOD / Unknown 06/29/2025 6:06 AM EDT 06/29/2025 6:07 AM EDT [facility] - 06/29/2025 6:07 AM EDT Care Management Associate ID is - [id number] Mundo Díaz MD POINT OF CARE TEST ORDERABLES Fi nal Result Performing Organization Address [facility] Co de Phone Number [facility] [address] [place] [address], [facility] [phone] * Glucose, Nova Meter (06/28/2025 7:58 PM EDT) POC-GLUCOSE 107 70 - 110 mg/dL 06/28/2025 7:59 PM EDT [facility] Comment: In the event of poor peripheral blood flow, venous or arterial blood should be used due to the potential of erroneous results. Protocols Followed Care Management Associate [phone] 06/28/2025 7:59 PM EDT [facility] Blood WHOLE BLOOD / Unknown 06/28/2025 7:58 PM EDT 06/28/2025 7:59 PM EDT [facility] - 06/28/2025 7:59 PM EDT Care Management Associate ID is - [id number] Mundo Díaz MD POINT OF CARE TEST ORDERABLES Fi nal Result Performing Organization Address [facility] Co de Phone Number [facility] [address] [place] [address], [facility] [phone] * Glucose, Nova Meter (06/28/2025 6:50 PM EDT) POC-GLUCOSE 83 70 - 110 mg/dL 06/28/2025 7:05 PM EDT [facility] Comment: In the event of poor peripheral blood flow, venous or arterial blood should be used due to the potential of erroneous results. Notified Nurse RBV Protocols Followed Care Management Associate [id number] 06/28/2025 7:05 PM EDT [facility] Blood WHOLE BLOOD / Unknown 06/28/2025 6:50 PM EDT 06/28/2025 7:05 PM EDT [facility] - 06/28/2025 7:05 PM EDT Care Management Associate ID is - [id number] Mundo Díaz MD POINT OF CARE TEST ORDERABLES Fi nal Result Performing Organization Address [facility] Phone Number [facility] [address] [phone] * (ABNORMAL) Glucose, Nova Meter (06/28/2025 11:20 AM EDT) POC-GLUCOSE 116(H) 70 - 110 mg/dL 06/28/2025 11:21 AM EDT [facility] Comment: In the event of poor peripheral blood flow, venous or arterial blood should be used due to the potential of erroneous results. Notified Nurse RBV Care Management Associate [id number] 06/28/2025 11:21 AM EDT [facility] Blood WHOLE BLOOD / Unknown 06/28/2025 11:20 AM EDT 06/28/2025 11:21 AM EDT [facility] - 06/28/2025 11:21 AM EDT Care Management Associate ID is - [id number] us Mundo Díaz MD POINT OF CARE TEST ORDERABLES Fi nal Result Performing Organization Address [facility] Phone Number [facility] [address] [phone] * (ABNORMAL) Glucose, Nova Meter (06/28/2025 5:34 AM EDT) POC-GLUCOSE 111(H) 70 - 110 mg/dL 06/28/2025 5:35 AM EDT [facility] Comment: In the event of poor peripheral blood flow, venous or arterial blood should be used due to the potential of erroneous results. Notified Nurse RBV Care Management Associate [id number] 06/28/2025 5:35 AM EDT [facility] Blood WHOLE BLOOD / Unknown 06/28/2025 5:34 AM EDT 06/28/2025 5:35 AM EDT [facility] - 06/28/2025 5:35 AM EDT Care Management Associate ID is - [id number] us Mundo Díaz MD POINT OF CARE TEST ORDERABLES Fi nal Result [facility] [address] [phone] * Magnesium (06/28/2025 2:34 AM EDT) Magnesium 1.7 1.6 - 2.6 mg/dL 06/28/2025 3:14 AM EDT [facility] Blood Venipuncture / Unknown 06/28/2025 2:34 AM EDT 06/28/2025 2:50 AM EDT us Mundo Díaz MD LAB BLOOD ORDERABLES Final Resul t Performing Organization Address [facility] Co de Phone Number [facility] [address] [phone] * (ABNORMAL) Comprehensive metabolic panel (06/28/2025 2:34 AM EDT) Sodium 140 136 - 145 meq/L 06/28/2025 3:14 AM EDT [facility] Potassium 4.5 3.4 - 5.1 meq/L 06/28/2025 3:14 AM EDT [facility] Chloride 101 98 - 112 meq/L 06/28/2025 3:14 AM EDT [facility] CO2 25 22 - 29 meq/L 06/28/2025 3:14 AM EDT [facility] Calcium 7.9(L) 8.4 - 10.2 mg/dL 06/28/2025 3:14 AM EDT [facility] Glucose 130(H) 74 - 100 mg/dL 06/28/2025 3:14 AM EDT [facility] BUN 41.0(H) 9.8 - 20.1 mg/dL 06/28/2025 3:14 AM EDT [facility] Creatinine 2.43(H) 0.57 - 1.11 mg/dL 06/28/2025 3:14 AM [facility] BUN/Creatinine 17 8 - 20 06/28/2025 3:14 AM [facility] eGFR (mL/min/1.73m2) 23(L) >=60 mL/min/1. 73m2 06/28/2025 3:14 AM [facility] Comment:ESTIMATED GFR IS NOT ACCURATE CREATININE CLEARANCE IN PREDICTING GLOMERULAR FILTRATION RATE. ESTIMATED GFR IS NOT APPLICABLE FOR DIALYSIS PATIENTS. Albumin 2.3(L) 3.5 - 5.0 g/dL 06/28/2025 3:14 AM [facility] Alkaline Phosphatase 182(H) 40 - 150 U/L 06/28/2025 3:14 AM [facility] ALT 7 <=34 U/L 06/28/2025 3:14 AM [facility] Comment: ALT2 reagent used for testing does not contain P5P supplementation and therefore may miss ALT elevations in patients with B6 deficiency. This population may be as high as 10% in the [place], with risk factors including malabsorption, drug interactions, and alcoholic hepatitis. AST 15 11 - 34 U/L 06/28/2025 3:14 AM [facility] Comment: AST2 reagent used for testing does not contain P5P supplementation and therefore may miss AST elevations in patients with B6 deficiency. This population may be as high as 10% in the [place], with risk factors including malabsorption, drug interactions, and alcoholic hepatitis. Total Bilirubin 0.7 0.2 - 1.2 mg/dL 06/28/2025 3:14 AM [facility] Protein, Total 5.9(L) 6.4 - 8.3 g/dL 06/28/2025 3:14 AM [facility] Globulin 3.6 2.5 - 4.1 g/dL 06/28/2025 3:14 AM [facility] Anion Gap 19(H) 4 - 12 06/28/2025 3:14 AM [facility] A/G Ratio 0.6(L) 0.7 - 1.9 06/28/2025 3:14 AM [facility] Osmolality Calc 291.3 mOsm/kg 3:14 AM EDT [facility] Blood Venipuncture / Unknown 06/28/2025 2:34 AM EDT 06/28/2025 2:50 AM EDT us Mundo Díaz MD LAB BLOOD ORDERABLES Final Resul t [facility] [address] [phone] * (ABNORMAL) CBC with automated diff (06/28/2025 2:34 AM EDT) WBC 4.9 4.0 - 10.0 K/ L 06/28/2025 2:56 AM EDT [facility] RBC 3.07(L) 3.93 - 5.22 M/ L 06/28/2025 2:56 AM EDT [facility] Hemoglobin 8.7(L) 11.2 - 15.7 GM/DL 06/28/2025 2:56 AM EDT [facility] Hematocrit 29.3(L) 34.1 - 44.9 % 06/28/2025 2:56 AM EDT [facility] MCV 95 79 - 95 fL 06/28/2025 2:56 AM EDT [facility] MCH 28.3 25.6 - 32.2 pg 06/28/2025 2:56 AM EDT [facility] MCHC 29.7(L) 32.2 - 35.5 GM/DL 06/28/2025 2:56 AM EDT [facility] RDW 18.7(H) 11.7 - 14.4 % 06/28/2025 2:56 AM EDT [facility] Platelets 51(L) 140 - 375 K/CU MM 06/28/2025 2:56 AM EDT [facility] MPV 12.6(H) 9.4 - 12.3 fL 06/28/2025 2:56 AM EDT [facility] % Neutros 66 34 - 71 % 06/28/2025 2:56 AM EDT [facility] % Lymphs 21 19 - 52 % 06/28/2025 2:56 AM EDT [facility] % Monos 8 5 - 13 % 06/28/2025 2:56 AM EDT [facility] % Eos 5 1 - 6 % 06/28/2025 2:56 AM EDT [facility] % Baso 1 0 - 1 % 06/28/2025 2:56 AM EDT [facility] NRBC Absolute <0.01 0 - 0.012 K/ul 06/28/2025 2:56 AM EDT [facility] # Neutros 3.20 1.56 - 6.13 K/ L 06/28/2025 2:56 AM EDT [facility] # Lymphs 1.00(L) 1.18 - 3.74 K/ L 06/28/2025 2:56 AM EDT [facility] # Monos 0.37 0.24 - 0.86 K/ L 06/28/2025 2:56 AM EDT [facility] # Eos 0.22 0.04 - 0.36 K/ L 06/28/2025 2:56 AM EDT [facility] # Baso 0.04 0.01 - 0.08 K/ L 06/28/2025 2:56 AM EDT [facility] % Imm Grans 0.80(H) 0.01 - 0.43 % 06/28/2025 2:56 AM EDT [facility] # IG 0.04(H) 0.00 - 0.03 K/uL 06/28/2025 2:56 AM EDT [facility] Blood Venipuncture / Unknown 06/28/2025 2:34 AM EDT 06/28/2025 2:49 AM EDT Narrative [facility] - 06/28/2025 2:56 AM EDT When [...] MD LAB BLOOD ORDERABLES Final Resul t [facility] [address] [place] [address], [facility] [phone] * Glucose, Nova Meter (06/27/2025 7:59 PM EDT) [facility] POC-GLUCOSE 105 70 - 110 mg/dL 06/27/2025 8:07 PM EDT [facility] Comment: In the event of poor peripheral blood flow, venous or arterial blood should be used due to the potential of erroneous results. Notified Nurse RBV Care Management Associate [phone] 06/27/2025 8:07 PM EDT [facility] Blood WHOLE BLOOD / Unknown 06/27/2025 7:59 PM EDT 06/27/2025 8:07 PM EDT Narrative [facility] - 06/27/2025 8:07 PM EDT Care Management Associate ID is - [id number] Mundo Díaz MD POINT OF CARE TEST ORDERABLES Fi nal Result Performing Organization Address City/[facility]/ZIP Co de Phone Number [facility] [address] [phone] * (ABNORMAL) Hemoglobin and hematocrit (06/27/2025 7:53 PM EDT) [facility] Hemoglobin 8.7(L) 11.2 - 15.7 GM/DL 06/27/2025 8:14 PM EDT [facility] Hematocrit 28.7(L) 34.1 - 44.9 % 06/27/2025 8:14 PM EDT [facility] Blood Venipuncture / Unknown 06/27/2025 7:53 PM EDT 06/27/2025 8:08 PM EDT us Mundo Díaz MD LAB BLOOD ORDERABLES Final Resul t [facility] [address] [phone] * (ABNORMAL) Glucose, Nova Meter (06/27/2025 3:52 PM EDT) POC-GLUCOSE 156(H) 70 - 110 mg/dL 06/27/2025 3:54 PM EDT [facility] Comment: In the event of poor peripheral blood flow, venous or arterial blood should be used due to the potential of erroneous results. Protocols Followed Notified Nurse RBV Care Management Associate [id number] 06/27/2025 3:54 PM EDT [facility] Blood WHOLE BLOOD / Unknown 06/27/2025 3:52 PM EDT 06/27/2025 3:54 PM EDT [facility] - 06/27/2025 3:54 PM EDT Care Management Associate ID is - [id number] us Mundo Díaz MD POINT OF CARE TEST ORDERABLES Fi nal Result [facility] [address] [phone] * Transfuse RBC (06/27/2025 2:38 PM EDT) us Mundo Díaz MD [email or web address]_BLOOD TRANSFUSION OR DERABLES Final Result * Transfuse RBC: 1 Units (06/27/2025 2:38 PM EDT) us Mundo Díaz MD FS_MODEL_IP_BLOOD TRANSFUSION OR DERABLES Final Result * (ABNORMAL) Glucose, Nova Meter (06/27/2025 11:32 AM EDT) POC-GLUCOSE 156(H) 70 - 110 mg/dL 06/27/2025 11:33 AM EDT [facility] Comment: In the event of poor peripheral blood flow, venous or arterial blood should be used due to the potential of erroneous results. Notified Nurse RBV Protocols Followed Care Management Associate [phone] 06/27/2025 11:33 AM EDT [facility] Blood WHOLE BLOOD / Unknown 06/27/2025 11:32 AM EDT 06/27/2025 11:33 AM EDT [facility] - 06/27/2025 11:33 AM EDT Care Management Associate ID is - [id number] us Mundo Díaz MD POINT OF CARE TEST ORDERABLES Fi nal Result Performing Organization Address [facility] Co de Phone Number [facility] [address] [phone] * (ABNORMAL) PTT Heparin Protocol (06/27/2025 10:07 AM EDT) PTT Heparin 29.7(L) 45 - 65 seconds 06/27/2025 11:08 AM EDT [facility] Blood Venipuncture / Unknown 06/27/2025 10:07 AM EDT 06/27/2025 10:43 AM EDT us Mundo Díaz MD LAB BLOOD ORDERABLES Final Resul t Performing Organization Address [facility] Phone Number [address] [phone] * Prepare RBC: 1 Units (06/27/2025 9:47 AM EDT) Issue Date/Time [id number] [facility] BLOOD [facility] ([place] Product Identification Red Blood Cells [facility] [place]) Product Code [id number] [facility] [place] Status Information TRANSFUSED [facility]) Unit Number [id number] [facility] [place]) Blood Type 9500 [facility] [place] Cross Match Results Compatible [facility] ([place] us Mundo Díaz MD FS_MODEL_IP_BLOOD BANK PRODUCT O RDERABLES Final Result Performing Organization Address [facility] Co de Phone Number [facility] ([place]) [address] [place] [address] * (ABNORMAL) Glucose, Nova Meter (06/27/2025 5:14 AM EDT) Pathologist [facility] POC-GLUCOSE 193(H) 70 - 110 mg/dL 06/27/2025 5:15 AM EDT [facility] Comment: In the event of poor peripheral blood flow, venous or arterial blood should be used due to the potential of erroneous results. Notified Nurse RBV Care Management Associate [phone] 06/27/2025 5:15 AM EDT [facility] Blood WHOLE BLOOD / Unknown 06/27/2025 5:14 AM EDT 06/27/2025 5:15 AM EDT Narrative [facility] - 06/27/2025 5:15 AM EDT Care Management Associate ID is - [id number] us Mundo Díaz MD POINT OF CARE TEST ORDERABLES Fi nal Result [facility] [address] [phone] * (ABNORMAL) CBC Scan (06/27/2025 3:06 AM EDT) [facility] Platelet Estimate Decreased (A) Adequate 06/27/2025 4:48 AM EDT [facility] RBC Morphology abnormal( A) Normal 06/27/2025 4:48 AM EDT [facility] Anisocytosis 2+ 06/27/2025 4:48 AM EDT [facility] Hypochromia 1+ 06/27/2025 4:48 AM EDT [facility] Polychromasia 1+ 06/27/2025 4:48 AM EDT [facility] Macrocytes 1+ 06/27/2025 4:48 AM EDT [facility] Ovalocytes 1+ 06/27/2025 4:48 AM EDT [facility] Elliptocytes 1+ 06/27/2025 4:48 AM EDT [facility] Blood Venipuncture / Unknown 06/27/2025 3:06 AM EDT 06/27/2025 3:43 AM EDT us Mundo Díaz MD LAB BLOOD ORDERABLES Final Resul t [facility] [address] [phone] * Magnesium (06/27/2025 3:06 AM EDT) Magnesium 1.6 1.6 - 2.6 mg/dL 06/27/2025 4:24 AM EDT [facility] Blood Venipuncture / Unknown 06/27/2025 3:06 AM EDT 06/27/2025 3:43 AM EDT Mundo Díaz MD LAB BLOOD ORDERABLES Final Resul t Performing Organization Address [facility]/ZIP Co de Phone Number [facility] [address] [phone] * (ABNORMAL) Comprehensive metabolic panel (06/27/2025 3:06 AM EDT) Sodium 137 136 - 145 meq/L 06/27/2025 4:25 AM EDT [facility] Potassium 3.8 3.4 - 5.1 meq/L 06/27/2025 4:25 AM EDT [facility] Chloride 101 98 - 112 meq/L 06/27/2025 4:25 AM EDT [facility] CO2 25 22 - 29 meq/L 06/27/2025 4:25 AM EDT [facility] Calcium 7.8(L) 8.4 - 10.2 mg/dL 06/27/2025 4:25 AM EDT [facility] Glucose 198(H) 74 - 100 mg/dL 06/27/2025 4:25 AM EDT [facility] BUN 27.3(H) 9.8 - 20.1 mg/dL 06/27/2025 4:25 AM EDT [facility] Creatinine 1.85(H) 0.57 - 1.11 mg/dL 06/27/2025 4:25 AM EDT [facility] BUN/Creatinine 15 8 - 20 06/27/2025 4:25 AM EDT [facility] eGFR (mL/min/1.73m2) 32(L) >=60 mL/min/1. 73m2 06/27/2025 4:25 AM [facility] Comment:ESTIMATED GFR IS NOT ACCURATE CREATININE CLEARANCE IN PREDICTING GLOMERULAR FILTRATION RATE. ESTIMATED GFR IS NOT APPLICABLE FOR DIALYSIS PATIENTS. Albumin 2.4(L) 3.5 - 5.0 g/dL 06/27/2025 4:25 AM [facility] Alkaline Phosphatase 194(H) 40 - 150 U/L 06/27/2025 4:25 AM [facility] ALT <7 <=34 U/L 06/27/2025 4:25 AM [facility] Comment: ALT2 reagent used for testing does not contain P5P supplementation and therefore may miss ALT elevations in patients with B6 deficiency. This population may be as high as 10% in the [place], with risk factors including malabsorption, drug interactions, and alcoholic hepatitis. AST 20 11 - 34 U/L 06/27/2025 4:25 AM [facility] Comment: AST2 reagent used for testing does not contain P5P supplementation and therefore may miss AST elevations in patients with B6 deficiency. This population may be as high as 10% in the [place], with risk factors including malabsorption, drug interactions, and alcoholic hepatitis. Total Bilirubin 0.6 0.2 - 1.2 mg/dL 06/27/2025 4:25 AM [facility] Protein, Total 5.9(L) 6.4 - 8.3 g/dL 06/27/2025 4:25 AM [facility] Globulin 3.5 2.5 - 4.1 g/dL 06/27/2025 4:25 AM [facility] Anion Gap 15(H) 4 - 12 06/27/2025 4:25 AM [facility] A/G Ratio 0.7 0.7 - 1.9 06/27/2025 4:25 AM [facility] Osmolality Calc 284.6 mOsm/kg 4:25 AM [facility] Blood Venipuncture / Unknown 06/27/2025 3:06 AM EDT 06/27/2025 3:43 AM EDT us Mundo Díaz MD LAB BLOOD ORDERABLES Final Resul t [facility] [address] [place] [id number] [phone] * (ABNORMAL) CBC with automated diff (06/27/2025 3:06 AM EDT) WBC 3.8(L) 4.0 - 10.0 K/ L 06/27/2025 3:50 AM EDT [facility] RBC 2.51(L) 3.93 - 5.22 M/ L 06/27/2025 3:50 AM EDT [facility] Hemoglobin 6.8(L) 11.2 - 15.7 GM/DL 06/27/2025 3:50 AM EDT [facility] Hematocrit 24.1(L) 34.1 - 44.9 % 06/27/2025 3:50 AM EDT [facility] MCV 96(H) 79 - 95 fL 06/27/2025 3:50 AM EDT [facility] MCH 27.1 25.6 - 32.2 pg 06/27/2025 3:50 AM EDT [facility] MCHC 28.2(L) 32.2 - 35.5 GM/DL 06/27/2025 3:50 AM EDT [facility] RDW 19.5(H) 11.7 - 14.4 % 06/27/2025 3:50 AM EDT [facility] Platelets 50(L) 140 - 375 K/CU MM 06/27/2025 3:50 AM EDT [facility] MPV 11.8 9.4 - 12.3 fL 06/27/2025 3:50 AM EDT [facility] Nucleated Red Blood Cell 0.0 0 - 0.2 % 06/27/2025 3:50 AM EDT [facility] % Neutros 59 34 - 71 % 06/27/2025 3:50 AM EDT [facility] % Lymphs 26 19 - 52 % 06/27/2025 3:50 AM EDT [facility] % Monos 9 5 - 13 % 06/27/2025 3:50 AM EDT [facility] % Eos 4 1 - 6 % 06/27/2025 3:50 AM EDT [facility] % Baso 1 0 - 1 % 06/27/2025 3:50 AM EDT [facility] NRBC Absolute <0.01 0 - 0.012 K/ul 06/27/2025 3:50 AM EDT [facility] # Neutros 2.24 1.56 - 6.13 K/ L 06/27/2025 3:50 AM EDT [facility] # Lymphs 0.99(L) 1.18 - 3.74 K/ L 06/27/2025 3:50 AM EDT [facility] # Monos 0.35 0.24 - 0.86 K/ L 06/27/2025 3:50 AM EDT [facility] # Eos 0.14 0.04 - 0.36 K/ L 06/27/2025 3:50 AM EDT [facility] # Baso 0.05 0.01 - 0.08 K/ L 06/27/2025 3:50 AM EDT [facility] % Imm Grans 0.50(H) 0.01 - 0.43 % 06/27/2025 3:50 AM EDT [facility] # IG <0.03 0.00 - 0.03 K/uL 06/27/2025 3:50 AM EDT [facility] Blood Venipuncture / Unknown 06/27/2025 3:06 AM EDT 06/27/2025 3:43 AM EDT Narrative [facility] - 06/27/2025 3:50 AM EDT When [...] MD LAB BLOOD ORDERABLES Final Resul t [facility] [address] [phone] * (ABNORMAL) PTT Heparin Protocol (06/26/2025 11:57 PM EDT) PTT Heparin 30.2(L) 45 - 65 seconds 06/27/2025 12:20 AM EDT [facility] Blood Venipuncture / Unknown 06/26/2025 11:57 PM EDT 06/27/2025 12:01 AM EDT us Mundo Díaz MD LAB BLOOD ORDERABLES Final Resul t Performing Organization Address [facility] Co de Phone Number [facility] [address] [phone] * (ABNORMAL) Glucose, Nova Meter (06/26/2025 8:12 PM EDT) [facility] POC-GLUCOSE 117(H) 70 - 110 mg/dL 06/26/2025 9:19 PM EDT [facility] Comment: In the event of poor peripheral blood flow, venous or arterial blood should be used due to the potential of erroneous results. Notified Nurse RBV Care Management Associate [phone] 06/26/2025 9:19 PM EDT [facility] Blood WHOLE BLOOD / Unknown 06/26/2025 8:12 PM EDT 06/26/2025 9:19 PM EDT Narrative [facility] - 06/26/2025 9:19 PM EDT Care Management Associate ID is - [id number] us Mundo Díaz MD POINT OF CARE TEST ORDERABLES Fi nal Result Performing Organization Address [facility] Co de Phone Number [facility] [address] [phone] * (ABNORMAL) PTT Heparin Protocol (06/26/2025 6:24 PM EDT) PTT Heparin 29.3(L) 45 - 65 seconds 06/26/2025 6:55 PM EDT [facility] Blood Venipuncture / Unknown 06/26/2025 6:24 PM EDT 06/26/2025 6:40 PM EDT Mundo Díaz MD LAB BLOOD ORDERABLES Final Resul t Performing Organization Address City/[facility]/ZIP Co de Phone Number [facility] [address] [phone] * (ABNORMAL) Glucose, Nova Meter (06/26/2025 10:56 AM EDT) POC-GLUCOSE 143(H) 70 - 110 mg/dL 06/26/2025 10:58 AM EDT [facility] Comment: In the event of poor peripheral blood flow, venous or arterial blood should be used due to the potential of erroneous results. Notified Nurse RBV Care Management Associate [phone] 06/26/2025 10:58 AM EDT [facility] Blood WHOLE BLOOD / Unknown 06/26/2025 10:56 AM EDT 06/26/2025 10:58 AM EDT Narrative [facility] - 06/26/2025 10:58 AM EDT Care Management Associate ID is - [id number] us Mundo Díaz MD POINT OF CARE TEST ORDERABLES Fi nal Result Performing Organization Address City/[facility]/ZIP Co de Phone Number [facility] [address] [phone] * (ABNORMAL) CBC Scan (06/26/2025 8:11 AM EDT) Platelet Estimate Decreased (A) Adequate 06/26/2025 9:51 AM EDT [facility] RBC Morphology abnormal( A) Normal 06/26/2025 9:51 AM EDT [facility] Anisocytosis 1+ 06/26/2025 9:51 AM EDT [facility] Hypochromia 2+ 06/26/2025 9:51 AM EDT [facility] Polychromasia 1+ 06/26/2025 9:51 AM EDT [facility] Ovalocytes 1+ 06/26/2025 9:51 AM EDT [facility] Tear Drop Cells 9:51 AM EDT [facility] Comment:rare Elliptocytes 1+ 06/26/2025 9:51 AM EDT [facility] Poikilocytes 1+ 06/26/2025 9:51 AM EDT [facility] Blood Venipuncture / Unknown 06/26/2025 8:11 AM EDT 06/26/2025 8:24 AM EDT us Mundo Díaz MD LAB BLOOD ORDERABLES Final Resul t [facility] [address] [phone] * (ABNORMAL) CBC with automated diff (06/26/2025 8:11 AM EDT) WBC 4.6 4.0 - 10.0 K/ L 06/26/2025 8:30 AM EDT [facility] RBC 2.63(L) 3.93 - 5.22 M/ L 06/26/2025 8:30 AM EDT [facility] Hemoglobin 7.2(L) 11.2 - 15.7 GM/DL 06/26/2025 8:30 AM EDT [facility] Hematocrit 25.1(L) 34.1 - 44.9 % 06/26/2025 8:30 AM EDT [facility] MCV 95 79 - 95 fL 06/26/2025 8:30 AM EDT [facility] MCH 27.4 25.6 - 32.2 pg 06/26/2025 8:30 AM EDT [facility] MCHC 28.7(L) 32.2 - 35.5 GM/DL 06/26/2025 8:30 AM EDT [facility] RDW 19.7(H) 11.7 - 14.4 % 06/26/2025 8:30 AM EDT [facility] Platelets 59(L) 140 - 375 K/CU MM 06/26/2025 8:30 AM EDT [facility] MPV 12.5(H) 9.4 - 12.3 fL 06/26/2025 8:30 AM EDT [facility] % Neutros 66 34 - 71 % 06/26/2025 8:30 AM EDT [facility] % Lymphs 21 19 - 52 % 06/26/2025 8:30 AM EDT [facility] % Monos 9 5 - 13 % 06/26/2025 8:30 AM EDT [facility] % Eos 4 1 - 6 % 06/26/2025 8:30 AM EDT [facility] % Baso 1 0 - 1 % 06/26/2025 8:30 AM EDT [facility] NRBC Absolute <0.01 0 - 0.012 K/ul 06/26/2025 8:30 AM EDT [facility] # Neutros 3.02 1.56 - 6.13 K/ L 06/26/2025 8:30 AM EDT [facility] # Lymphs 0.98(L) 1.18 - 3.74 K/ L 06/26/2025 8:30 AM EDT [facility] # Monos 0.39 0.24 - 0.86 K/ L 06/26/2025 8:30 AM EDT [facility] # Eos 0.16 0.04 - 0.36 K/ L 06/26/2025 8:30 AM EDT [facility] # Baso 0.03 0.01 - 0.08 K/ L 06/26/2025 8:30 AM EDT [facility] % Imm Grans 0.40 0.01 - 0.43 % 06/26/2025 8:30 AM EDT [facility] # IG <0.03 0.00 - 0.03 K/uL 06/26/2025 8:30 AM EDT [facility] Blood Venipuncture / Unknown 06/26/2025 8:11 AM EDT 06/26/2025 8:24 AM EDT Narrative [facility] - 06/26/2025 8:30 AM EDT When [...] Blast? Flag noted Atypical Lymph flag noted Mundo Díaz MD LAB BLOOD ORDERABLES Final Resul t Performing Organization Address City/[facility]/ZIP Co de Phone Number [facility] [address] [phone] * (ABNORMAL) PTT Heparin Protocol (06/26/2025 8:11 AM EDT) Pathologist [facility] PTT Heparin 30.5(L) 45 - 65 seconds 06/26/2025 8:42 AM EDT [facility] Blood ENTIRE RIGHT UPPER ARM / Unknown Venipuncture / Unknown 06/26/2025 8:11 AM EDT 06/26/2025 8:24 AM EDT Vlad Waters PA-C LAB BLOOD ORDERABLES Final Res ult Performing Organization Address [facility]/ZIP Co de Phone Number [facility] [address] [place] [address] * (ABNORMAL) Glucose, Nova Meter (06/26/2025 5:09 AM EDT) Pathologist [facility] POC-GLUCOSE 147(H) 70 - 110 mg/dL 06/26/2025 5:24 AM EDT [facility] Comment: In the event of poor peripheral blood flow, venous or arterial blood should be used due to the potential of erroneous results. Notified Nurse RBV Care Management Associate [phone] 06/26/2025 5:24 AM EDT [facility] Blood WHOLE BLOOD / Unknown 06/26/2025 5:09 AM EDT 06/26/2025 5:24 AM EDT Narrative [facility] - 06/26/2025 5:24 AM EDT Care Management Associate ID is - [id number] Mundo Díaz MD POINT OF CARE TEST ORDERABLES Fi nal Result [facility] [address] [phone] * (ABNORMAL) CBC Scan (06/26/2025 1:18 AM EDT) Pathologist [facility] Platelet Estimate Decreased (A) Adequate 06/26/2025 1:58 AM EDT [facility] RBC Morphology abnormal( A) Normal 06/26/2025 1:58 AM EDT [facility] Anisocytosis 1+ 06/26/2025 1:58 AM EDT [facility] Hypochromia 2+ 06/26/2025 1:58 AM EDT [facility] Elliptocytes 1+ 06/26/2025 1:58 AM EDT [facility] Blood Venipuncture / Unknown 06/26/2025 1:18 AM EDT 06/26/2025 1:21 AM EDT Mundo Díaz MD LAB BLOOD ORDERABLES Final Resul t Performing Organization Address [facility]/ZIP Co de Phone Number [facility] [address] [phone] * (ABNORMAL) Phosphorus (06/26/2025 1:18 AM EDT) [facility] Phosphorus 5.1(H) 2.5 - 4.5 mg/dL 06/26/2025 1:45 AM EDT [facility] Blood Venipuncture / Unknown 06/26/2025 1:18 AM EDT 06/26/2025 1:21 AM EDT Mundo Díaz MD LAB BLOOD ORDERABLES Final Resul t [facility] [address] [phone] * Magnesium (06/26/2025 1:18 AM EDT) Pathologist [facility] Magnesium 1.7 1.6 - 2.6 mg/dL 06/26/2025 1:45 AM EDT [facility] Blood Venipuncture / Unknown 06/26/2025 1:18 AM EDT 06/26/2025 1:21 AM EDT us Mundo Díaz MD LAB BLOOD ORDERABLES Final Resul t [facility] [address] [phone] * (ABNORMAL) Comprehensive metabolic panel (06/26/2025 1:18 AM EDT) Sodium 139 136 - 145 meq/L 06/26/2025 1:50 AM EDT [facility] Potassium 4.2 3.4 - 5.1 meq/L 06/26/2025 1:50 AM EDT [facility] Chloride 101 98 - 112 meq/L 06/26/2025 1:50 AM EDT [facility] CO2 24 22 - 29 meq/L 06/26/2025 1:50 AM EDT [facility] Calcium 7.8(L) 8.4 - 10.2 mg/dL 06/26/2025 1:50 AM EDT [facility] Glucose 166(H) 74 - 100 mg/dL 06/26/2025 1:50 AM EDT [facility] BUN 42.1(H) 9.8 - 20.1 mg/dL 06/26/2025 1:50 AM EDT [facility] Creatinine 2.76(H) 0.57 - 1.11 mg/dL 06/26/2025 1:50 AM EDT [facility] BUN/Creatinine 15 8 - 20 06/26/2025 1:50 AM T [facility] eGFR (mL/min/1.73m2) 20(L) >=60 mL/min/1. 73m2 06/26/2025 1:50 AM EDT [facility] Comment:ESTIMATED GFR IS NOT ACCURATE CREATININE CLEARANCE IN PREDICTING GLOMERULAR FILTRATION RATE. ESTIMATED GFR IS NOT APPLICABLE FOR DIALYSIS PATIENTS. Albumin 2.3(L) 3.5 - 5.0 g/dL 06/26/2025 1:50 AM EDT [facility] Alkaline Phosphatase 199(H) 40 - 150 U/L 06/26/2025 1:50 AM EDT [facility] ALT 7 <=34 U/L 06/26/2025 1:50 AM EDT [facility] Comment: ALT2 reagent used for testing does not contain P5P supplementation and therefore may miss ALT elevations in patients with B6 deficiency. This population may be as high as 10% in the [place], with risk factors including malabsorption, drug interactions, and alcoholic hepatitis. AST 28 11 - 34 U/L 06/26/2025 1:50 AM EDT [facility] Comment: AST2 reagent used for testing does not contain P5P supplementation and therefore may miss AST elevations in patients with B6 deficiency. This population may be as high as 10% in the [place], with risk factors including malabsorption, drug interactions, and alcoholic hepatitis. Total Bilirubin 0.6 0.2 - 1.2 mg/dL 06/26/2025 1:50 AM EDT [facility] Protein, Total 5.8(L) 6.4 - 8.3 g/dL 06/26/2025 1:50 AM EDT [facility] Globulin 3.5 2.5 - 4.1 g/dL 06/26/2025 1:50 AM EDT [facility] Anion Gap 18(H) 4 - 12 06/26/2025 1:50 AM EDT [facility] A/G Ratio 0.7 0.7 - 1.9 06/26/2025 1:50 AM EDT [facility] Osmolality Calc 291.8 mOsm/kg 1:50 AM EDT [facility] Blood Venipuncture / Unknown 06/26/2025 1:18 AM EDT 06/26/2025 1:21 AM EDT us Mundo Díaz MD LAB BLOOD ORDERABLES Final Resul t [facility] [address] [phone] * (ABNORMAL) CBC with automated diff (06/26/2025 1:18 AM EDT) WBC 4.0 4.0 - 10.0 K/ L 06/26/2025 1:27 AM EDT [facility] RBC 2.61(L) 3.93 - 5.22 M/ L 06/26/2025 1:27 AM EDT [facility] Hemoglobin 7.1(L) 11.2 - 15.7 GM/DL 06/26/2025 1:27 AM EDT [facility] Hematocrit 25.3(L) 34.1 - 44.9 % 06/26/2025 1:27 AM EDT [facility] MCV 97(H) 79 - 95 fL 06/26/2025 1:27 AM EDT [facility] MCH 27.2 25.6 - 32.2 pg 06/26/2025 1:27 AM EDT [facility] MCHC 28.1(L) 32.2 - 35.5 GM/DL 06/26/2025 1:27 AM EDT [facility] RDW 19.9(H) 11.7 - 14.4 % 06/26/2025 1:27 AM EDT [facility] Platelets 62(L) 140 - 375 K/CU MM 06/26/2025 1:27 AM EDT [facility] MPV 12.7(H) 9.4 - 12.3 fL 06/26/2025 1:27 AM EDT [facility] % Neutros 63 34 - 71 % 06/26/2025 1:27 AM EDT [facility] % Lymphs 25 19 - 52 % 06/26/2025 1:27 AM EDT [facility] % Monos 8 5 - 13 % 06/26/2025 1:27 AM EDT [facility] % Eos 3 1 - 6 % 06/26/2025 1:27 AM EDT [facility] % Baso 1 0 - 1 % 06/26/2025 1:27 AM EDT [facility] NRBC Absolute <0.01 0 - 0.012 K/ul 06/26/2025 1:27 AM EDT [facility] # Neutros 2.51 1.56 - 6.13 K/ L 06/26/2025 1:27 AM EDT [facility] # Lymphs 1.01(L) 1.18 - 3.74 K/ L 06/26/2025 1:27 AM EDT [facility] # Monos 0.31 0.24 - 0.86 K/ L 06/26/2025 1:27 AM EDT [facility] # Eos 0.12 0.04 - 0.36 K/ L 06/26/2025 1:27 AM EDT [facility] # Baso 0.04 0.01 - 0.08 K/ L 06/26/2025 1:27 AM EDT [facility] % Imm Grans 0.50(H) 0.01 - 0.43 % 06/26/2025 1:27 AM EDT [facility] # IG <0.03 0.00 - 0.03 K/uL 06/26/2025 1:27 AM EDT [facility] Blood Venipuncture / Unknown 06/26/2025 1:18 AM EDT 06/26/2025 1:21 AM EDT Narrative [facility] - 06/26/2025 1:27 AM EDT When [...] MD LAB BLOOD ORDERABLES Final Resul t [facility] [address] [place] [address], [facility] [phone] * (ABNORMAL) PTT Heparin Protocol (06/26/2025 1:17 AM EDT) PTT Heparin 29.9(L) 45 - 65 seconds 06/26/2025 1:43 AM EDT [facility] Blood ENTIRE RIGHT UPPER ARM / Unknown Venipuncture / Unknown 06/26/2025 1:17 AM EDT 06/26/2025 1:21 AM EDT Vlad SIERRA-C LAB BLOOD ORDERABLES Final Res ult [facility] [address] [phone] * (ABNORMAL) Hemoglobin and hematocrit (06/25/2025 8:21 PM EDT) Hemoglobin 7.5(L) 11.2 - 15.7 GM/DL 06/25/2025 8:33 PM EDT [facility] Hematocrit 26.3(L) 34.1 - 44.9 % 06/25/2025 8:33 PM EDT [facility] Blood Venipuncture / Unknown 06/25/2025 8:21 PM EDT 06/25/2025 8:27 PM EDT Vlad SIERRA-C LAB BLOOD ORDERABLES Final Res ult Performing Organization Address [facility]/ZIP Co de Phone Number [facility] [address] [phone] * (ABNORMAL) Glucose, Nova Meter (06/25/2025 7:08 PM EDT) POC-GLUCOSE 143(H) 70 - 110 mg/dL 06/25/2025 7:22 PM EDT [facility] Comment: In the event of poor peripheral blood flow, venous or arterial blood should be used due to the potential of erroneous results. Notified Nurse RBV Care Management Associate [phone] 06/25/2025 7:22 PM EDT [facility] Blood WHOLE BLOOD / Unknown 06/25/2025 7:08 PM EDT 06/25/2025 7:21 PM EDT Narrative [facility] - 06/25/2025 7:22 PM EDT Care Management Associate ID is - [id number] us Mundo Díaz MD POINT OF CARE TEST ORDERABLES Fi nal Result Performing Organization Address City/[facility]/ZIP Co de Phone Number [facility] [address] [place] [address], [facility] [phone] * (ABNORMAL) PTT Heparin Protocol (06/25/2025 6:21 PM EDT) PTT Heparin 44.6(L) 45 - 65 seconds 06/25/2025 6:50 PM EDT [facility] Blood ENTIRE RIGHT UPPER ARM / Unknown Venipuncture / Unknown 06/25/2025 6:21 PM EDT 06/25/2025 6:28 PM EDT us Vlad Waters PA-C LAB BLOOD ORDERABLES Final Res ult Performing Organization Address City/[facility]/ZIP Co de Phone Number [facility] [address] [phone] * Transfuse RBC (06/25/2025 4:40 PM EDT) us Mundo Díaz MD FS_MODEL_IP_BLOOD TRANSFUSION OR DERABLES Final Result * Transfuse RBC: 1 Units (06/25/2025 4:40 PM EDT) us Mundo Díaz MD FS_MODEL_IP_BLOOD TRANSFUSION OR DERABLES Final Result * Glucose, Nova Meter (06/25/2025 4:03 PM EDT) POC-GLUCOSE 89 70 - 110 mg/dL 06/25/2025 4:06 PM EDT [facility] Comment: In the event of poor peripheral blood flow, venous or arterial blood should be used due to the potential of erroneous results. Notified Nurse [facility]BV Care Management Associate [phone] 06/25/2025 4:06 PM EDT [facility] Blood WHOLE BLOOD / Unknown 06/25/2025 4:03 PM EDT 06/25/2025 4:06 PM EDT Narrative [facility] - 06/25/2025 4:06 PM EDT Care Management Associate ID is - [id number] us Mundo Díaz MD POINT OF CARE TEST ORDERABLES Fi nal Result [facility] [address] [phone] * Glucose, Nova Meter (06/25/2025 10:46 AM EDT) [facility] POC-GLUCOSE 90 70 - 110 mg/dL 06/25/2025 10:47 AM EDT [facility] Comment: In the event of poor peripheral blood flow, venous or arterial blood should be used due to the potential of erroneous results. Notified Nurse [facility]BV Care Management Associate [phone] 06/25/2025 10:47 AM EDT [facility] Blood WHOLE BLOOD / Unknown 06/25/2025 10:46 AM EDT 06/25/2025 10:47 AM EDT Narrative [facility] - 06/25/2025 10:47 AM EDT Care Management Associate ID is - [id number] us Mundo Díaz MD POINT OF CARE TEST ORDERABLES Fi nal Result [facility] [address] [phone] * (ABNORMAL) PTT Heparin Protocol (06/25/2025 10:26 AM EDT) [facility] PTT Heparin 65.3(H) 45 - 65 seconds 06/25/2025 11:11 AM EDT [facility] Blood Venipuncture / Unknown 06/25/2025 10:26 AM EDT 06/25/2025 10:53 AM EDT us Mundo Díaz MD LAB BLOOD ORDERABLES Final Resul t [facility] [address] [phone] * (ABNORMAL) Prothrombin time/INR (06/25/2025 10:26 AM EDT) Protime 12.6(H) 9.0 - 12.0 seconds 06/25/2025 12:47 PM EDT [facility] INR 1.15(H) 0.80 - 1.10 06/25/2025 12:47 PM EDT [facility] Comment: Recommended therapeutic ranges using International Normalized Ratio (INR) are: INR RANGE 2.0 - 3.0 Routine oral anticoagulant therapy 2.5 - 3.5 Oral anticoagulant therapy for patients with thromboembolic events on standard doses of Coumadin and those with mechanical heart valves. Blood Venipuncture / Unknown 06/25/2025 10:26 AM EDT 06/25/2025 10:53 AM EDT us Mundo Díaz MD LAB BLOOD ORDERABLES Final Resul t Performing Organization Address [facility]/ZIP Co de Phone Number [facility] [address] [phone] * Type and Screen (06/25/2025 9:11 AM EDT) Pathologist [facility] ABO/Rh O Positive 06/25/2025 9:[address] [facility] BLOOD [facility] ([place] Antibody Screen Negative 06/25/2025 9:20 AM EDT [facility] ([place] HISTCHK HIST CHECK PERFORMED 06/25/2025 9:20 AM EDT [facility] [place] Blood Venipuncture / Unknown 06/25/2025 9:11 AM EDT 06/25/2025 9:20 AM EDT us Mundo Díaz MD [facility] BLOOD BANK TEST ORDERABLES F inal Result Performing Organization Address City/[facility]/ZIP Co de Phone Number [facility] ([place]) [address] [place] [address], [facility] [phone] * Prepare RBC: 1 Units (06/25/2025 8:37 AM EDT) Issue Date/Time [id number] [facility] [place] Product Identification Red Blood Cells [facility] [place]) Product Code [id number] [facility] [place] Status Information TRANSFUSED [facility] ([place] Unit Number [id number] [facility] BLOOD [facility] [place] Blood Type 5100 [facility] [place] Cross Match Results Compatible [facility] ([place] us Mundo Díaz MD FS_MODEL_IP_BLOOD BANK PRODUCT O RDERABLES Final Result Performing Organization Address [facility]/ZIP Co de Phone Number [facility] ([place]) [address] [place] [address], [facility] [phone] * PTT Heparin Protocol (06/25/2025 7:47 AM EDT) PTT Heparin 65.0 45 - 65 seconds 06/25/2025 8:44 AM EDT [facility] Blood ENTIRE RIGHT UPPER ARM / Unknown Venipuncture / Unknown 06/25/2025 7:47 AM EDT 06/25/2025 8:11 AM EDT us Vlad Waters PA-C LAB BLOOD ORDERABLES Final Res ult Performing Organization Address City/[facility]/ZIP Co de Phone Number [facility] [address] [place] [address], [facility] [phone] * (ABNORMAL) CBC Scan (06/25/2025 7:46 AM EDT) Platelet Estimate Decreased( A) Adequate 06/25/2025 8:35 AM EDT [facility] RBC Morphology Normal Normal 06/25/2025 8:35 AM EDT [facility] Hypochromia 1+ 06/25/2025 8:35 AM EDT [facility] Blood Venipuncture / Unknown 06/25/2025 7:46 AM EDT 06/25/2025 8:11 AM EDT us Vlad Waters PA-C LAB BLOOD ORDERABLES Final Res ult [facility] [address] [phone] * (ABNORMAL) CBC with automated diff (06/25/2025 7:46 AM EDT) WBC 4.1 4.0 - 10.0 K/ L 06/25/2025 8:18 AM EDT [facility] RBC 2.45(L) 3.93 - 5.22 M/ L 06/25/2025 8:18 AM EDT [facility] Hemoglobin 6.4(LL) 11.2 - 15.7 GM/DL 06/25/2025 8:18 AM EDT [facility] Hematocrit 22.6(L) 34.1 - 44.9 % 06/25/2025 8:18 AM EDT [facility] MCV 92 79 - 95 fL 06/25/2025 8:18 AM EDT [facility] MCH 26.1 25.6 - 32.2 pg 06/25/2025 8:18 AM EDT [facility] MCHC 28.3(L) 32.2 - 35.5 GM/DL 06/25/2025 8:18 AM EDT [facility] RDW 20.0(H) 11.7 - 14.4 % 06/25/2025 8:18 AM EDT [facility] Platelets 60(L) 140 - 375 K/CU MM 06/25/2025 8:18 AM EDT [facility] MPV 11.4 9.4 - 12.3 fL 06/25/2025 8:18 AM EDT [facility] % Neutros 65 34 - 71 % 06/25/2025 8:18 AM EDT [facility] % Lymphs 23 19 - 52 % 06/25/2025 8:18 AM EDT [facility] % Monos 8 5 - 13 % 06/25/2025 8:18 AM EDT [facility] % Eos 3 1 - 6 % 06/25/2025 8:18 AM EDT [facility] % Baso 1 0 - 1 % 06/25/2025 8:18 AM EDT [facility] NRBC Absolute <0.01 0 - 0.012 K/ul 06/25/2025 8:18 AM EDT [facility] # Neutros 2.66 1.56 - 6.13 K/ L 06/25/2025 8:18 AM EDT [facility] # Lymphs 0.95(L) 1.18 - 3.74 K/ L 06/25/2025 8:18 AM EDT [facility] # Monos 0.33 0.24 - 0.86 K/ L 06/25/2025 8:18 AM EDT [facility] # Eos 0.12 0.04 - 0.36 K/ L 06/25/2025 8:18 AM EDT [facility] # Baso <0.03 0.01 - 0.08 K/ L 06/25/2025 8:18 AM EDT [facility] % Imm Grans 0.20 0.01 - 0.43 % 06/25/2025 8:18 AM EDT [facility] # IG <0.03 0.00 - 0.03 K/uL 06/25/2025 8:18 AM EDT [facility] Blood Venipuncture / Unknown 06/25/2025 7:46 AM EDT 06/25/2025 8:11 AM EDT Narrative [facility] - 06/25/2025 8:18 AM EDT When [...] PA-C LAB BLOOD ORDERABLES Final Res ult [facility] [address] [place] [id number] [phone] * Glucose, Nova Meter (06/25/2025 4:59 AM EDT) POC-GLUCOSE 82 70 - 110 mg/dL 06/25/2025 5:01 AM EDT [facility] Comment: In the event of poor peripheral blood flow, venous or arterial blood should be used due to the potential of erroneous results. Protocols Followed Notified Nurse RBV Care Management Associate [phone] 06/25/2025 5:01 AM EDT [facility] Blood WHOLE BLOOD / Unknown 06/25/2025 4:59 AM EDT 06/25/2025 5:01 AM EDT Narrative [facility] - 06/25/2025 5:01 AM EDT Care Management Associate ID is - [id number] us Dajuan Banuelos MD POINT OF CARE TEST ORDERABLES Fi nal Result Performing Organization Address [facility]/ZIP Co de Phone Number [facility] [address] [phone] * (ABNORMAL) CBC Scan (06/24/2025 9:22 PM EDT) Platelet Estimate Decreased (A) Adequate 06/24/2025 10:12 PM EDT [facility] RBC Morphology abnormal( A) Normal 06/24/2025 10:12 PM EDT [facility] Anisocytosis 2+ 06/24/2025 10:12 PM EDT [facility] Hypochromia 2+ 06/24/2025 10:12 PM EDT [facility] Macrocytes 1+ 06/24/2025 10:12 PM EDT [facility] Poikilocytes 1+ 06/24/2025 10:12 PM EDT [facility] Blood Venipuncture / Unknown 06/24/2025 9:22 PM EDT 06/24/2025 9:32 PM EDT us Vlad Waters PA-C LAB BLOOD ORDERABLES Final Res ult Performing Organization Address [facility]/ZIP Co de Phone Number [facility] [address] [phone] * (ABNORMAL) PT/INR, PTT (06/24/2025 9:22 PM EDT) aPTT 37.3(H) 22.0 - 32.0 seconds 06/24/2025 9:49 PM EDT [facility] Protime 12.4(H) 9.0 - 12.0 seconds 06/24/2025 9:49 PM EDT [facility] INR 1.13(H) 0.80 - 1.10 06/24/2025 9:49 PM EDT [facility] Blood Venipuncture / Unknown 06/24/2025 9:22 PM EDT 06/24/2025 9:32 PM EDT us Vlad Waters PA-C LAB BLOOD ORDERABLES Final Res ult [facility] [address] [phone] * (ABNORMAL) CBC with Automated Diff (06/24/2025 9:22 PM EDT) Pathologist [facility] WBC 4.8 4.0 - 10.0 K/ L 06/24/2025 9:38 PM EDT [facility] RBC 2.64(L) 3.93 - 5.22 M/ L 06/24/2025 9:38 PM EDT [facility] Hemoglobin 7.1(L) 11.2 - 15.7 GM/DL 06/24/2025 9:38 PM EDT [facility] Hematocrit 24.5(L) 34.1 - 44.9 % 06/24/2025 9:38 PM EDT [facility] MCV 93 79 - 95 fL 06/24/2025 9:38 PM EDT [facility] MCH 26.9 25.6 - 32.2 pg 06/24/2025 9:38 PM EDT [facility] MCHC 29.0(L) 32.2 - 35.5 GM/DL 06/24/2025 9:38 PM EDT [facility] RDW 20.2(H) 11.7 - 14.4 % 06/24/2025 9:38 PM EDT [facility] Platelets 67(L) 140 - 375 K/CU MM 06/24/2025 9:38 PM EDT [facility] MPV 11.2 9.4 - 12.3 fL 06/24/2025 9:38 PM EDT [facility] % Neutros 72(H) 34 - 71 % 06/24/2025 9:38 PM EDT [facility] % Lymphs 19 19 - 52 % 06/24/2025 9:38 PM EDT [facility] % Monos 7 5 - 13 % 06/24/2025 9:38 PM EDT [facility] % Eos 2 1 - 6 % 06/24/2025 9:38 PM EDT [facility] % Baso 0 0 - 1 % 06/24/2025 9:38 PM EDT [facility] NRBC Absolute <0.01 0 - 0.012 K/ul 06/24/2025 9:38 PM EDT [facility] # Neutros 3.47 1.56 - 6.13 K/ L 06/24/2025 9:38 PM EDT [facility] # Lymphs 0.91(L) 1.18 - 3.74 K/ L 06/24/2025 9:38 PM EDT [facility] # Monos 0.32 0.24 - 0.86 K/ L 06/24/2025 9:38 PM EDT [facility] # Eos 0.08 0.04 - 0.36 K/ L 06/24/2025 9:38 PM EDT [facility] # Baso <0.03 0.01 - 0.08 K/ L 06/24/2025 9:38 PM EDT [facility] % Imm Grans 0.40 0.01 - 0.43 % 06/24/2025 9:38 PM EDT [facility] # IG <0.03 0.00 - 0.03 K/uL 06/24/2025 9:38 PM EDT [facility] Blood Venipuncture / Unknown 06/24/2025 9:22 PM EDT 06/24/2025 9:32 PM EDT [facility] - 06/24/2025 9:38 PM EDT When [...] ORDERABLES Final Res ult Performing Organization Address [facility]/ZIP Co de Phone Number [facility] [address] [phone] * (ABNORMAL) PTT Heparin Protocol (06/24/2025 9:22 PM EDT) Pathologist [facility] PTT Heparin 37.3(L) 45 - 65 seconds 06/24/2025 9:49 PM EDT [facility] Blood Venipuncture / Unknown 06/24/2025 9:22 PM EDT 06/24/2025 9:32 PM EDT us Vlad Waters PA-C LAB BLOOD ORDERABLES Final Res ult Performing Organization Address [facility] Co de Phone Number [facility] [address] [phone] * Glucose, Nova Meter (06/24/2025 8:40 PM EDT) [facility] POC-GLUCOSE 89 70 - 110 mg/dL 06/25/2025 12:01 AM EDT [facility] Comment:In the event of poor peripheral blood flow, venous or arterial blood should be used due to the potential of erroneous results. Care Management Associate [phone] 06/25/2025 12:01 AM EDT [facility] Blood WHOLE BLOOD / Unknown 06/24/2025 8:40 PM EDT 06/25/2025 12:01 AM EDT [facility] - 06/25/2025 12:01 AM EDT Care Management Associate ID is - [id number] us Dajuan Banuelos MD POINT OF CARE TEST ORDERABLES Fi nal Result [facility] [address] [place] [address], [facility] [phone] * XR chest 2 views (06/24/2025 2:15 [...] Nas Rebolledo. Transcribed by Kalyan Wisdom PA-C us Kalyan DIAZ DIAGNOSTIC IMAGING ORDERABLE S Final Result * US THORACENTESIS LT (06/24/2025 2:09 PM EDT) Anatomical Region Laterality Modality Ultrasound 06/24/2025 2:23 PM EDT Impressions 06/24/2025 2:55 PM EDT Technically successful sonographic-guided left thoracentesis with tube insertion as above. Images reviewed, interpreted, and dictated by Dr. Nas Rebolledo. Transcribed by Kalyan Wisdom PA-C [facility] 06/24/2025 2:55 PM EDT ULTRASOUND-GUIDED THORACENTESIS WITH TUBE INSERTION HISTORY: Left pleural effusion. ATTENDING RADIOLOGIST: Dr. Rebolledo. PHYSICIAN JITTERBUG OPERATOR: Kalyan Wisdom PA-C. TECHNIQUE: Informed consent was [...] pleural effusion. ATTENDING RADIOLOGIST: Dr. Rebolledo. PHYSICIAN JITTERBUG OPERATOR: Kalyan Wisdom PA-C. TECHNIQUE: Informed consent was [...] reviewed, interpreted, and dictated by Dr. Nas Kostelic. Transcribed by Kalyan Wisdom PA-C [facility] ORDER[facility] Final Result * Body Fluid/CSF - Path Review () (06/24/2025 2:06 PM EDT) Pathologist [facility] Differential Comment Macrophages and blood. No malignancy seen. Manoj Cai MD 06-24-2025 06/24/2025 6:10 PM EDT [facility] Pleural Fluid STRUCTURE OF LEFT PLEURAL CAVITY / Unknown 06/24/2025 2:06 PM EDT 06/24/2025 3:50 PM EDT Dajuan Banuelos MD BODY FLUIDS AND STOOLS ORDERABLE S Final Result Performing Organization Address [facility] Co de Phone Number [facility] [address] [phone] * DIFFERENTIAL, BODY FLUID (06/24/2025 2:06 PM EDT) Pathologist [facility] Neutrophils Fluid 13 0 - 25 % 025 5:37 PM EDT [facility] Lymphocytes Fluid 30 % 025 5:37 PM EDT [facility] Monocytes Fluid 9 0 - 65 % 5:37 PM EDT [facility] Unidentified Mononuclear Cells BF 48 0 - 0 % 06/24/2025 5:37 PM EDT [facility] Pleural Fluid STRUCTURE OF LEFT PLEURAL CAVITY / Unknown 06/24/2025 2:06 PM EDT 06/24/2025 3:50 PM EDT Dajuan Banuelos MD BODY FLUIDS AND STOOLS ORDERABLE S Final Result [facility] [address] [phone] * [facility] Non-Svp Digital Sales Cytology (06/24/2025 2:06 PM EDT) Pathologist [facility] AP RESULT See Note: PATH[facility]Y [facility] CYTOLOGY LABORATORY Comment: FINAL NON-CARBIDE POWDER PROCESSOR CYTOLOGY REPORT DIAGNOSIS: A. BODY FLUID, LEFT, [...] Banuelos MD PATHOLOGY/CYTOLOGY ORDERABLES Fi nal Result [facility] [address] [place] [address] * Glucose, body fluid (06/24/2025 2:06 PM EDT) Glucose, Body Fluid 119 See Comment mg/dL 06/24/2025 5:37 PM EDT [facility] BODY FLUID TYPE Pleural 06/24/2025 5:37 PM EDT [facility] Pleural Fluid STRUCTURE OF LEFT PLEURAL CAVITY / Unknown 06/24/2025 2:06 PM EDT 06/24/2025 3:50 PM EDT Narrative [facility] - 06/24/2025 5:37 PM EDT This test has been modified from the steward/stewardess bath's instructions and its performance characteristics were determined by the laboratory. The reference intervals and other method performance specifications are unavailable for this test. It is recommended to interpret body fluid concentrations in comparison with the corresponding serum or plasma concentrations and to integrate test results into the clinical context. us Dajuan Banuelos MD BODY FLUIDS AND STOOLS ORDERABLE S Final Result [facility] [address] [phone] * Body Fluid Culture + Gram Stain (06/24/2025 2:06 PM EDT) Result No growth 06/27/2025 7:33 AM EDT [facility] Gram Stain Result No organisms seen 06/27/2025 7:33 AM EDT [facility] Gram Stain Result Rare WBCs 06/27/2025 7:33 AM EDT [facility] Pleural Fluid STRUCTURE OF LEFT PLEURAL CAVITY / Unknown 06/24/2025 2:06 PM EDT 06/24/2025 3:50 PM EDT Narrative [facility] - 06/27/2025 7:33 AM EDT Specimen Description: left pleural fluid us Dajuan Banuelos MD MICROBIOLOGY - GENERAL ORDERABLE S Final Result Performing Organization Address [facility]/ZIP Co de Phone Number [facility] [address] [phone] * Body fluid cell count with differential (06/24/2025 2:06 PM EDT) Appearance Clear Clear 06/24/2025 5:37 PM EDT [facility] Color Yellow 06/24/2025 5:37 PM EDT [facility] BODY FLUID TYPE Pleural 5:37 PM EDT [facility] Auto WBC/Nucleated Cells BF 253 /uL 06/24/2025 5:37 PM EDT [facility] Comment: Please refer to specific WBC/Nucleated Cell Count Body Fluid reference ranges below: For Pleural: 0-1000 Peritoneal: 0-1000 Pericardial:0-1000 Synovial: 0-200 Auto RBC BF 3,000 /uL 06/24/2025 5:37 PM EDT [facility] Comment: Please refer to specific RBC [...] ORDERABLE S Final Result Performing Organization Address [facility] Co de Phone Number [facility] [address] [phone] * Protein, body fluid (06/24/2025 2:06 PM EDT) Protein, Fluid 1.5 See Comment g/dL 06/24/2025 5:37 PM EDT [facility] BODY FLUID TYPE Pleural 06/24/2025 5:37 PM EDT [facility] Pleural Fluid STRUCTURE OF LEFT PLEURAL CAVITY / Unknown 06/24/2025 2:06 PM EDT 06/24/2025 3:50 PM EDT [facility] - 06/24/2025 5:37 PM EDT This test has been modified from the steward/stewardess bath's instructions and its performance characteristics were determined [...] ORDERABLE S Final Result Performing Organization Address [facility] Co de Phone Number [facility] [address] [place] [address], [facility] [phone] * Lactate dehydrogenase (LDH), body fluid (06/24/2025 2:06 PM EDT) LDH, Fluid 67 See Comment U/L 06/24/2025 5:37 PM EDT [facility] BODY FLUID TYPE Pleural 06/24/2025 5:37 PM EDT [facility] Pleural Fluid STRUCTURE OF LEFT PLEURAL CAVITY / Unknown 06/24/2025 2:06 PM EDT 06/24/2025 3:50 PM EDT Narrative [facility] - 06/24/2025 5:37 PM EDT This test has been modified from the steward/stewardess bath's instructions and its performance characteristics were determined [...] ORDERABLE S Final Result Performing Organization Address [facility] [facility]/ZIP Co de Phone Number [facility] [address] [phone] * PTT Heparin Protocol (06/24/2025 12:42 PM EDT) PTT Heparin 54.9 45 - 65 seconds 06/24/2025 1:24 PM EDT [facility] Blood Venipuncture / Unknown 06/24/2025 12:42 PM EDT 06/24/2025 12:59 PM EDT us Vlad Waters PA-C LAB BLOOD ORDERABLES Final Res ult Performing Organization Address [facility] Co de Phone Number [facility] [address] [phone] * (ABNORMAL) Glucose, Nova Meter (06/24/2025 12:13 PM EDT) POC-GLUCOSE 124(H) 70 - 110 mg/dL 06/24/2025 12:14 PM EDT [facility] Comment: In the event of poor peripheral blood flow, venous or arterial blood should be used due to the potential of erroneous results. Notified Nurse [facility]BV Care Management Associate [phone] 06/24/2025 12:14 PM EDT [facility] Blood WHOLE BLOOD / Unknown 06/24/2025 12:13 PM EDT 06/24/2025 12:14 PM EDT Narrative [facility] - 06/24/2025 12:14 PM EDT Care Management Associate ID is - [id number] us Dajuan Banuelos MD POINT OF CARE TEST ORDERABLES Fi nal Result [facility] [address] [phone] * ECHO COMPLETE (DOPPLER / COLOR) W CONTRAST (06/24/2025 8:00 AM EDT) Anatomical Region Laterality Modality Heart Vascular Ultraso und 06/24/2025 8:38 AM EDT Narrative 06/24/2025 8:03 PM EDT TRANSTHORACIC ECHOCARDIOGRAPHY REPORT Demographics Patient Name: VIET VORA : 1970 Age: 55 year(s) Corporate ID Number: [id number] Gender Female 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 Garcia, Height: 67 inches [facility] Referring Physician: ADEBAYO TORRES Weight: 132 pounds [...] 0.43 m/s E/A ratio: 2.58 m/s Volume qacoixntf266.01 LV length: 8.52 cm ml Volume pgynbrzt33.42 ml LVOT diameter: 1.7 cm Normal sized [...] Valve TR velocity: 4.33 m/s TR gradient: 75.74370 mmHg Estimated RAP: 15 mmHg RVSP: 90.15 [...] 1970 Age: 55 year(s) Corporate ID Number: [id number] Gender Female 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 Patient Status: ALICE Study Location: [facility] Quality: Adequate visualization History/Tech Notes: Indication: [...] 0.43 m/s E/A ratio: 2.58 m/s Volume tiloibcvn780.01 LV length: 8.52 cm ml Volume lsbyomqw25.42 ml LVOT diameter: 1.7 cm Normal sized [...] Valve TR velocity: 4.33 m/s TR gradient: 75.95671 mmHg Estimated RAP: 15 mmHg RVSP: 90.15 [...] enhancing agent administered for endocardial border definition. Dajuan Banuelos MD CV ECHO ORDERABLES Final Result * Hepatitis panel, acute (06/24/2025 6:33 AM EDT) Pathologist [facility] Hep A IgM Nonreactive Nonreactive 06/24/2025 11:46 AM EDT [facility] Hep B C IgM Nonreactive Nonreactive 06/24/2025 11:46 AM EDT [facility] Hepatitis B surface antigen Nonreactive Nonreactive 06/24/2025 11:46 AM EDT [facility] Hepatitis C Ab Nonreactive Nonreactive 06/24/20 11:46 AM EDT [facility] Comment: [employer] Consultant recommends confirmatory testing on all reactives and equivocals. Blood Venipuncture / Unknown 06/24/2025 6:33 AM EDT 06/24/2025 6:36 AM EDT Blaine Moreno MD LAB BLOOD ORDERABLES Final Resul t [facility] 1 [place], [place] [address] [phone] * (ABNORMAL) PROBNP (06/24/2025 6:33 AM EDT) Pathologist [facility] ProBNP (pg/mL) >70,000(H) 16 - 334 pg/mL 06/24/2025 7:17 AM EDT [facility] Blood Venipuncture / Unknown 06/24/2025 6:33 AM EDT 06/24/2025 6:36 AM EDT Narrative [facility] - 06/24/2025 7:17 AM EDT As of February 07, 2025: NT-ProBNP is a new test on our 3D Biomatrix Alinity Immunoassay analyzer. Please review new age and gender specific reference ranges. us Vlad Waters PA-C LAB BLOOD ORDERABLES Final Res ult [facility] [address] [phone] * (ABNORMAL) Comprehensive Metabolic Panel (06/24/2025 6:33 AM EDT) Sodium 142 136 - 145 meq/L 06/24/2025 7:16 AM EDT [facility] Potassium 4.4 3.4 - 5.1 meq/L 06/24/2025 7:16 AM EDT [facility] Chloride 101 98 - 112 meq/L 06/24/2025 7:16 AM EDT [facility] CO2 25 22 - 29 meq/L 06/24/2025 7:16 AM EDT [facility] Calcium 8.7 8.4 - 10.2 mg/dL 06/24/2025 7:16 AM T [facility] Glucose 108(H) 74 - 100 mg/dL 06/24/2025 7:16 AM EDT [facility] BUN 39.6(H) 9.8 - 20.1 mg/dL 06/24/2025 7:16 AM EDT [facility] Creatinine 2.74(H) 0.57 - 1.11 mg/dL 06/24/2025 7:16 AM EDT [facility] BUN/Creatinine 14 8 - 20 06/24/2025 7:16 AM EDT [facility] eGFR (mL/min/1.73m2) 20(L) >=60 mL/min/1. 73m2 06/24/2025 7:16 AM [facility] Comment:ESTIMATED GFR IS NOT ACCURATE CREATININE CLEARANCE IN PREDICTING GLOMERULAR FILTRATION RATE. ESTIMATED GFR IS NOT APPLICABLE FOR DIALYSIS PATIENTS. Albumin 2.9(L) 3.5 - 5.0 g/dL 06/24/2025 7:16 AM [facility] Alkaline Phosphatase 247(H) 40 - 150 U/L 06/24/2025 7:16 AM [facility] ALT 13 <=34 U/L 06/24/2025 7:16 AM [facility] Comment: ALT2 reagent used for testing does not contain P5P supplementation and therefore may miss ALT elevations in patients with B6 deficiency. This population may be as high as 10% in the [place], with risk factors including malabsorption, drug interactions, and alcoholic hepatitis. AST 38(H) 11 - 34 U/L 06/24/2025 7:16 AM [facility] Comment: AST2 reagent used for testing does not contain P5P supplementation and therefore may miss AST elevations in patients with B6 deficiency. This population may be as high as 10% in the [place], with risk factors including malabsorption, drug interactions, and alcoholic hepatitis. Total Bilirubin 0.7 0.2 - 1.2 mg/dL 06/24/2025 7:16 AM [facility] Protein, Total 7.3 6.4 - 8.3 g/dL 06/24/2025 7:16 AM [facility] Globulin 4.4(H) 2.5 - 4.1 g/dL 06/24/2025 7:16 AM [facility] Anion Gap 20(H) 4 - 12 06/24/2025 7:16 AM [facility] A/G Ratio 0.7 0.7 - 1.9 06/24/2025 7:16 AM [facility] Osmolality Calc 293.3 mOsm/kg 7:16 AM [facility] Blood Venipuncture / Unknown 06/24/2025 6:33 AM EDT 06/24/2025 6:36 AM EDT us Vlad Waters PA-C LAB BLOOD ORDERABLES Final Res ult [facility] [address] [phone] * (ABNORMAL) CBC Scan (06/24/2025 6:32 AM EDT) Pathologist [facility] Platelet Estimate Decreased (A) Adequate 06/24/2025 7:29 AM EDT [facility] RBC Morphology abnormal( A) Normal 06/24/2025 7:29 AM EDT [facility] Anisocytosis 2+ 06/24/2025 7:29 AM EDT [facility] Hypochromia 2+ 06/24/2025 7:29 AM EDT [facility] Polychromasia 1+ 06/24/2025 7:29 AM EDT [facility] Macrocytes 1+ 06/24/2025 7:29 AM EDT [facility] Blood Venipuncture / Unknown 06/24/2025 6:32 AM EDT 06/24/2025 6:36 AM EDT Vlad Waters PA-C LAB BLOOD ORDERABLES Final Res ult Performing Organization Address [facility]/ZIP Co de Phone Number [facility] [address] [phone] * (ABNORMAL) CBC with automated diff (06/24/2025 6:32 AM EDT) Pathologist [facility] WBC 4.6 4.0 - 10.0 K/ L 06/24/2025 6:57 AM EDT [facility] RBC 3.33(L) 3.93 - 5.22 M/ L 06/24/2025 6:57 AM EDT [facility] Hemoglobin 8.6(L) 11.2 - 15.7 GM/DL 06/24/2025 6:57 AM EDT [facility] Hematocrit 31.2(L) 34.1 - 44.9 % 06/24/2025 6:57 AM EDT [facility] MCV 94 79 - 95 fL 06/24/2025 6:57 AM EDT [facility] MCH 25.8 25.6 - 32.2 pg 06/24/2025 6:57 AM EDT [facility] MCHC 27.6(L) 32.2 - 35.5 GM/DL 06/24/2025 6:57 AM EDT [facility] RDW 20.2(H) 11.7 - 14.4 % 06/24/2025 6:57 AM EDT [facility] Platelets 67(L) 140 - 375 K/CU MM 06/24/2025 6:57 AM EDT [facility] MPV 06/24/2025 6:57 AM EDT [facility] Comment:Unable to report due to abnormal Platelet population distribution. % Neutros 70 34 - 71 % 06/24/2025 6:57 AM EDT [facility] % Lymphs 20 19 - 52 % 06/24/2025 6:57 AM EDT [facility] % Monos 6 5 - 13 % 06/24/2025 6:57 AM EDT [facility] % Eos 2 1 - 6 % 06/24/2025 6:57 AM EDT [facility] % Baso 1 0 - 1 % 06/24/2025 6:57 AM EDT [facility] NRBC Absolute <0.01 0 - 0.012 K/ul 06/24/2025 6:57 AM EDT [facility] # Neutros 3.20 1.56 - 6.13 K/ L 06/24/2025 6:57 AM EDT [facility] # Lymphs 0.93(L) 1.18 - 3.74 K/ L 06/24/2025 6:57 AM EDT [facility] # Monos 0.27 0.24 - 0.86 K/ L 06/24/2025 6:57 AM EDT [facility] # Eos 0.10 0.04 - 0.36 K/ L 06/24/2025 6:57 AM EDT [facility] # Baso 0.04 0.01 - 0.08 K/ L 06/24/2025 6:57 AM EDT [facility] % Imm Grans 0.70(H) 0.01 - 0.43 % 06/24/2025 6:57 AM EDT [facility] # IG 0.03 0.00 - 0.03 K/uL 06/24/2025 6:57 AM EDT [facility] Blood Venipuncture / Unknown 06/24/2025 6:32 AM EDT 06/24/2025 6:36 AM EDT Narrative [facility] - 06/24/2025 6:57 AM EDT When [...] ORDERABLES Final Res ult Performing Organization Address City/[facility]/ZIP Co de Phone Number [facility] [address] [phone] * (ABNORMAL) PTT Heparin Protocol (06/24/2025 6:32 AM EDT) PTT Heparin 44.1(L) 45 - 65 seconds 06/24/2025 7:17 AM EDT [facility] Blood Venipuncture / Unknown 06/24/2025 6:32 AM EDT 06/24/2025 6:36 AM EDT Vlad SIERRA-C LAB BLOOD ORDERABLES Final Res ult [facility] [address] [phone] * (ABNORMAL) High Sensitivity Troponin I (06/24/2025 6:32 AM EDT) Troponin I High Sensitivity (pg/mL) 2,424.1(H H) <=14 pg/mL 06/24/2025 7:04 AM EDT [facility] Blood Venipuncture / Unknown 06/24/2025 6:32 AM EDT 06/24/2025 6:36 AM EDT Narrative [facility] - 06/24/2025 7:04 AM EDT Applicable to [facility] only. Effective December 11 the lab will begin using a new chemistry analyzer. HsTroponin methodology, reference ranges and critical values have changed. us Vlad Waters PA-C LAB BLOOD ORDERABLES Final Res ult Performing Organization Address [facility] Co de Phone Number [facility] [address] [place] [address], [facility] [phone] * Glucose, Nova Meter (06/24/2025 4:57 AM EDT) POC-GLUCOSE 108 70 - 110 mg/dL 06/24/2025 4:58 AM EDT [facility] Comment: In the event of poor peripheral blood flow, venous or arterial blood should be used due to the potential of erroneous results. Protocols Followed Notified Nurse RBV Care Management Associate [phone] 06/24/2025 4:58 AM EDT [facility] Blood WHOLE BLOOD / Unknown 06/24/2025 4:57 AM EDT 06/24/2025 4:58 AM EDT Narrative [facility] - 06/24/2025 4:58 AM EDT Care Management Associate ID is - [id number] Vlad Waters PA-C POINT OF CARE TEST ORDERABLES Final Result Performing Organization Address [facility] Co de Phone Number [facility] [address] [place] [address], [facility] [phone] * (ABNORMAL) PTT Heparin Protocol (06/23/2025 11:27 PM EDT) PTT Heparin 30.9(L) 45 - 65 seconds 06/24/2025 12:30 AM EDT [facility] Blood Venipuncture / Unknown 06/23/2025 11:27 PM EDT 06/24/2025 12:16 AM EDT Vlad ISERRA-Shanel LAB BLOOD ORDERABLES Final Res ult Performing Organization Address City/[facility]/ZIP Co de Phone Number [facility] [address] [phone] * Prothrombin time/INR (06/23/2025 11:27 PM EDT) Protime 11.4 9.0 - 12.0 seconds 06/24/2025 12:30 AM EDT [facility] INR 1.03 0.80 - 1.10 06/24/2025 12:30 AM EDT [facility] Comment: Recommended therapeutic ranges using International Normalized Ratio (INR) are: INR RANGE 2.0 - 3.0 Routine oral anticoagulant therapy 2.5 - 3.5 Oral anticoagulant therapy for patients with thromboembolic events on standard doses of Coumadin and those with mechanical heart valves. Blood Venipuncture / Unknown 06/23/2025 11:27 PM EDT 06/24/2025 12:16 AM EDT Vlad SIERRA-Shanel LAB BLOOD ORDERABLES Final Res ult [facility] [address] [phone] * XR chest AP portable (06/23/2025 10:57 [...] ATRIAL RATE (MCT) 68 BPM GE MUSE MN Interval 140 ms GE MUSE QRS-INTERVAL (MSEC) 116 ms GE MUSE QT Interval 440 ms GE MUSE QTC Interval 467 ms GE MUSE P [place] 89 degrees GE MUSE R AXIS (MCT) 118 degrees GE MUSE T Wave [place] -57 degrees GE MUSE [place] Diagnosis Normal sinus rhythm Right axis deviation Pulmonary disease pattern ST & T wave abnormality, consider inferior ischemia Abnormal ECG When compared with ECG of 23-JUN-2025 22:43, ST no longer depressed in Inferior leads T wave inversion now evident in Inferior leads Confirmed by Mindy Mckeon ([id number]) on 06/28/2025 5:36:53 PM GE MUSE 06/23/2025 10:4 4 PM EDT 06/28/2025 5:36 PM EDT Vlad Waters PA-C ECG ORDERABLES Final Result GE MUSE * (ABNORMAL) CBC Scan (06/23/2025 8:26 PM EDT) Platelet Estimate Decreased (A) Adequate 06/23/2025 9:20 PM EDT [facility] RBC Morphology abnormal( A) Normal 06/23/2025 9:20 PM EDT [facility] Anisocytosis 1+ 06/23/2025 9:20 PM EDT [facility] Hypochromia 2+ 06/23/2025 9:20 PM EDT [facility] Poikilocytes 1+ 06/23/2025 9:20 PM EDT [facility] Blood Venipuncture / Unknown 06/23/2025 8:26 PM EDT 06/23/2025 8:43 PM EDT us Dajuan Banuelos MD LAB BLOOD ORDERABLES Final Resul t Performing Organization Address [facility] Co de Phone Number [facility] [address] [phone] * (ABNORMAL) High Sensitivity Troponin I (06/23/2025 8:26 PM EDT) Pathologist [facility] Troponin I High Sensitivity (pg/mL) 2,560.3(H H) <=14 pg/mL 06/23/2025 9:16 PM EDT [facility] Blood Venipuncture / Unknown 06/23/2025 8:26 PM EDT 06/23/2025 8:43 PM EDT Narrative [facility] - 06/23/2025 9:16 PM EDT Applicable to [facility] only. Effective December 11 the lab will begin using a new chemistry analyzer. HsTroponin methodology, reference ranges and critical values have changed. us Dajuan Banuelos MD LAB BLOOD ORDERABLES Final Resul t Performing Organization Address City/[facility]/ZIP Co de Phone Number [facility] [address] [phone] * (ABNORMAL) Comprehensive Metabolic Panel (06/23/2025 8:26 PM EDT) Pathologist [facility] Sodium 141 136 - 145 meq/L 06/23/2025 9:09 PM EDT [facility] Potassium 4.2 3.4 - 5.1 meq/L 06/23/2025 9:09 PM EDT [facility] Chloride 101 98 - 112 meq/L 06/23/2025 9:09 PM [facility] CO2 24 22 - 29 meq/L 06/23/2025 9:09 PM [facility] Calcium 8.4 8.4 - 10.2 mg/dL 06/23/2025 9:09 PM [facility] Glucose 103(H) 74 - 100 mg/dL 06/23/2025 9:09 PM [facility] BUN 38.1(H) 9.8 - 20.1 mg/dL 06/23/2025 9:09 PM [facility] Creatinine 2.72(H) 0.57 - 1.11 mg/dL 06/23/2025 9:09 PM [facility] BUN/Creatinine 14 8 - 20 06/23/2025 9:09 PM [facility] eGFR (mL/min/1.73m2) 20(L) >=60 mL/min/1. 73m2 06/23/2025 9:09 PM [facility] Comment:ESTIMATED GFR IS NOT ACCURATE CREATININE CLEARANCE IN PREDICTING GLOMERULAR FILTRATION RATE. ESTIMATED GFR IS NOT APPLICABLE FOR DIALYSIS PATIENTS. Albumin 2.7(L) 3.5 - 5.0 g/dL 06/23/2025 9:09 PM [facility] Alkaline Phosphatase 228(H) 40 - 150 U/L 06/23/2025 9:09 PM [facility] ALT 12 <=34 U/L 06/23/2025 9:09 PM [facility] Comment: ALT2 reagent used for testing does not contain P5P supplementation and therefore may miss ALT elevations in patients with B6 deficiency. This population may be as high as 10% in the [place], with risk factors including malabsorption, drug interactions, and alcoholic hepatitis. AST 32 11 - 34 U/L 06/23/2025 9:09 PM [facility] Comment: AST2 reagent used for testing does not contain P5P supplementation and therefore may miss AST elevations in patients with B6 deficiency. This population may be as high as 10% in the [place], with risk factors including malabsorption, drug interactions, and alcoholic hepatitis. Total Bilirubin 0.7 0.2 - 1.2 mg/dL 06/23/2025 9:09 PM EDT [facility] Protein, Total 6.7 6.4 - 8.3 g/dL 06/23/2025 9:09 PM EDT [facility] Globulin 4.0 2.5 - 4.1 g/dL 06/23/2025 9:09 PM EDT [facility] Anion Gap 20(H) 4 - 12 06/23/2025 9:09 PM EDT [facility] A/G Ratio 0.7 0.7 - 1.9 06/23/2025 9:09 PM EDT [facility] Osmolality Calc 290.6 mOsm/kg 9:09 PM EDT [facility] Blood Venipuncture / Unknown 06/23/2025 8:26 PM EDT 06/23/2025 8:43 PM EDT us Dajuan Banuelos MD LAB BLOOD ORDERABLES Final Resul t Performing Organization Address [facility]/State/[facility] Co de Phone Number [facility] [address] [place] [address] * (ABNORMAL) CBC with automated diff (06/23/2025 8:26 PM EDT) WBC 5.3 4.0 - 10.0 K/ L 06/23/2025 8:49 PM EDT [facility] RBC 2.98(L) 3.93 - 5.22 M/ L 06/23/2025 8:49 PM EDT [facility] Hemoglobin 7.7(L) 11.2 - 15.7 GM/DL 06/23/2025 8:49 PM EDT [facility] Hematocrit 27.9(L) 34.1 - 44.9 % 06/23/2025 8:49 PM EDT [facility] MCV 94 79 - 95 fL 06/23/2025 8:49 PM EDT [facility] MCH 25.8 25.6 - 32.2 pg 06/23/2025 8:49 PM EDT [facility] MCHC 27.6(L) 32.2 - 35.5 GM/DL 06/23/2025 8:49 PM EDT [facility] RDW 19.8(H) 11.7 - 14.4 % 06/23/2025 8:49 PM EDT [facility] Platelets 71(L) 140 - 375 K/CU MM 06/23/2025 8:49 PM EDT [facility] MPV 11.5 9.4 - 12.3 fL 06/23/2025 8:49 PM EDT [facility] % Neutros 70 34 - 71 % 06/23/2025 8:49 PM EDT [facility] % Lymphs 20 19 - 52 % 06/23/2025 8:49 PM EDT [facility] % Monos 7 5 - 13 % 06/23/2025 8:49 PM EDT [facility] % Eos 2 1 - 6 % 06/23/2025 8:49 PM EDT [facility] % Baso 1 0 - 1 % 06/23/2025 8:49 PM EDT [facility] NRBC Absolute <0.01 0 - 0.012 K/ul 06/23/2025 8:49 PM EDT [facility] # Neutros 3.67 1.56 - 6.13 K/ L 06/23/2025 8:49 PM EDT [facility] # Lymphs 1.03(L) 1.18 - 3.74 K/ L 06/23/2025 8:49 PM EDT [facility] # Monos 0.35 0.24 - 0.86 K/ L 06/23/2025 8:49 PM EDT [facility] # Eos 0.11 0.04 - 0.36 K/ L 06/23/2025 8:49 PM EDT [facility] # Baso 0.06 0.01 - 0.08 K/ L 06/23/2025 8:49 PM EDT [facility] % Imm Grans 0.80(H) 0.01 - 0.43 % 06/23/2025 8:49 PM EDT [facility] # IG 0.04(H) 0.00 - 0.03 K/uL 06/23/2025 8:49 PM EDT [facility] Blood Venipuncture / Unknown 06/23/2025 8:26 PM EDT 06/23/2025 8:43 PM EDT Narrative [facility] - 06/23/2025 8:49 PM EDT When [...] MD LAB BLOOD ORDERABLES Final Resul t [facility] [address] [place] [address], [facility] [phone] * EKG-SCANNED (06/23/2025) Narrative 06/23/2025 Ordered by [...] oral, First dose on Tue06/24/25 at 2100 Given 06/28/2025 8:30 PM EDT [...] Blood Sugar is less than 180 beteween 2945-2002, DO NOT give corrective insulin unless otherwise [...] oral, insomnia, Starting on Tue06/24/25 at 0213 Given 06/26/2025 8:33 PM EDT [...] % infusion 20 mL/hr Once, intravenous, On 06/25/25 at 0900, For 1 dose, Used to [...] dose on Tue06/24/25 at 2130, Look-alike/Sound-alike medication 09 (Given - Provider: Kylah Munguia RN)2127 (Given - Provider: Garrison Harris RN) 113 (Given - Provider: Paloma Sawyer RN)2031 (Given - Provider: Eder Desai RN) 08 (Given - Provider: Jasvir Vines LPN) aspirin [...] oral, First dose on Tue06/24/25 at 2100 212 (Given - Provider: Garrison Harris, RN) 2030 (Given - Provider: Eder Desai RN) budesonide (PULMICORT) nebulizer suspension 0.5 mg 0.5 mg 2 times daily (RT), nebulization, First dose on 06/23/25 at 2000, *RESPIRATORY THERAPY TREATMENT*, What is the respiratory therapy Modality? Small volume Nebulization 0843 (Not Given - Provider: Neal Calles, PIPE TESTING TECHNICIAN - Reason: Patient/family refused)2100 (Not Given - Provider: Azeem Chauhan, MINING SPECULATOR - Reason: Patient/family refused) 0857 (Not Given - Provider: Karmen Gabriel, PIPE TESTING TECHNICIAN - Reason: Patient/family refused - Comment: patient stated only medicine i want is my ativan and pain medication. no breathing treatment.)2113 (Given - Provider: Anthony Thorpe, MINING SPECULATOR) 0811 (Not Given - Provider: Corinne Olsen, PIPE TESTING TECHNICIAN - Reason: Patient/family refused - Comment: said no to tx, was trying to sleep) carvediloL (COREG) tablet 12.5 mg 12.5 mg 2 times daily with breakfast and dinner, oral, First dose on Tue06/23/25 at 2000, Hold for systolic BP < 90 mmHg or for HR < 50 BPM 0902 (Given - Provider: Kylah Munguia, CHAO)1717 (Given - Provider: Kylah Munguia RN) 1117 (Given - Provider: Paloma Sawyer, CHAO)1800 (Given - Provider: Paloma Sawyer RN) 0824 (Given - Provider: Jasvir Vines LPN) doxazosin (CARDURA) tablet 2 mg 2 mg 2 times daily, oral, First dose on 06/24/25 at 2130 0902 (Given - Provider: Kylah Munguia RN)212 (Given - Provider: Garrison Harris RN) 1118 (Given - Provider: Paloma Sawyer RN)2030 (Given - Provider: Eder Desai, RN) 0823 (Given - Provider: Jasvir Vines [...] Order parameters not met - Comment: systolic <50)210 (Not Given - Provider: Garrison Harris RN [...] not met) 1117 (Given - Provider: Paloma Sawyer RN)1300 (Not Given - Provider: Paloma Sawyer RN - Reason: Patient not available)1800 (Given - Provider: Paloma Sawyer RN)202 (Given - Provider: Eder Desai, RN) 0823 (Given - Provider: Jasvir Vines LPN)1542 (Not Given - Provider: Jasvir Vines LPN - Reason: Other (with Comment)) insulin lispro (HUMALOG, ADMELOG) injection 0-12 Units 0-12 Units 4 times daily (before meals and nightly), subcutaneous, First dose on Tue06/24/25 at 0730, If Blood Sugar is less than 180 beteween 5312-1063, DO NOT give corrective insulin unless otherwise [...] mcg Daily (0600), oral, First dose on 06/24/25 at 0600, ADMINISTER ON AN EMPTY STOMACH 0639 (Given - Provider: Citlalli Wood, RN) 0558 (Given - Provider: Garrison Harris RN) 0418 (Given - Provider: Eder Desai, CHAO) pantoprazole (PROTONIX) EC tablet 40 mg 40 mg Daily, oral, First dose on Tue06/23/25 at 2100, * DO NOT CRUSH THIS DOSAGE FORM * 0902 (Given - Provider: Kylah Munguia RN) 1118 (Given - Provider: Paloma Sawyer RN) 0823 (Given - Provider: Jasvir Vines LPN) sodium chloride 0.9 % infusion (COMPLETED)(Linked Group 1) 20 mL/hr Once, intravenous, On [place] 06/27/25 at 1030, For 1 dose, Used to prep and flush blood tubing before and in between units of blood. 1120 (New Bag - Provider: Kylah Munguia RN) PRN Medication Order 06/27/2025 06/28/2025 06/29/2025 acetaminophen [...] Night PRN, oral, itching, sleep, Starting on 06/23/25 at 1851 glucagon injection 1 mg 1 mg Every [...] at 1851 0902 (Given - Provider: Kylah Munguia, CHAO) 0939 (Given - Provider: Sobia Foster, RN)2038 (Given - Provider: Eder Desai RN) [...] PRN, oral, moderate pain (4-6), Starting on 06/23/25 at 1925, This medication is to be administered for a pain scale of 4-6 MODERATE Oxycodone Give only if inadequate response (less than 50% reduction in pain score) 60 minutes after administration of 1st line analgesics + adjuvants (if ordered). Look-alike/Sound-alike medication 0902 (Given - Provider: Kylah Munguia, CHAO)1357 (Given - Provider: Kylah Munguia, RN)2132 (Given - Provider: Garrison Harris, RN) 0939 (Given - Provider: Sobia Foster, RN)2028 (Given - Provider: Eder Desai, RN) sodium [...] Saline Lock IV (CANCELED) Routine, Once, On 06/23/25 at 1849, For 1 occurrence And sodium chloride flush 10 mLJump to med 10 mL As needed, intravenous, line care, Starting on [place] 06/23/25 at 1848, Every 8 hours and PRN to flush documented in this encounter Care Teams Maintenance Job Titles Relationship Specialty Start Date End Date Osmani Becker MD [address] [place] [address] PCP - General General Internal Medicine 02/02/24 Mindy Mckeon MD [address], [facility] [address] [place] [address] Interventional Cardiology 06/27/25 documented as of this encounter
[2025-07-22] VITALS (22 sets, daily range): BP systolic 85–165; BP diastolic 50–95; PULSE 61–75; RESP 12–26; TEMP 36.8; O2SAT 92–98; BMI 20.7
--- OUTSIDE RECORDS SUMMARY | 2025-07-22 01:25 | XMS_ITS | Encounter Summary ---
Author Organization [facility] Address [address] [place] [address] Care Team Providers Care Field Operations Manager Name Role Phone RileyRosemarie beach Shanel WILSON Primary Care Provider [phone] Baylee Gracia RN Unavailable Unavailable Reason for Visit * Reason Comments HRCM Encounter Details Date Type Department Care Team ([facility] Contact Info) Description 07/16/2025 Patient Outreach POPULATION HEALTH [address] [facility] [address], [address] [place] [address] Baylee Gracia, RN HRCM Social History Tobacco Use Types Packs/Day Years [...] any time in the past 12 m [facility], were you homeless or living in a custodial (including now)? No 06/03/2025 [facility] Utilities Answer Date Recorded In [...] drink first t jacqueline in the morning (EYE-WEAVING INSPECTOR) to steady your nerves or to [...] * Progress Notes - Baylee Gracia - 07/16/2025 9:49 AM EDT 07/16/2025 HRCM Follow-Up Call Patient is UTR at this time. Patient reached: No Care coordination Summary: Rn updated check list to outreach to patient and son once more for HRCM needs. Baylee Gracia HRCM Nurse Population Health documented in this encounter Plan of Treatment Upcoming Encounters Date Type Department Care Team (Late st Contact Info) Description 08/20/2025 12:00 PM EST Office Visit [facility] [address], [address] [place] [address] Kaiden Harvey MD [address] [place] [address] documented as of this encounter [...] Care Plan Heart failure maintenance No Baylee Gracia, RN Patient will verbalize understanding of heart failure progression Care Plan Heart failure progression and care needs No Baylee Gracia RN documented as of this encounter Visit Diagnoses [...] documented as of this encounter Care Teams Field Operations Manager Relationship Specialty Start Date End Date Rosemarie Riley, STEVE [address] [place] [address] PCP - General 04/02/25 Baylee Gracia, RN Registered Nurse 06/12/25 documented as of this encounter
--- OUTSIDE RECORDS SUMMARY | 2025-07-22 01:25 | XMS_ITS | Clinical Summary ---
Author Organization [facility] Address [address] [place] [address] Care Team Providers Care Microbiology Lab Technician Name Role Phone RosemaryRosemarie Shanel WILSON Primary Care Provider [phone] Baylee Gracia RN Unavailable Unavailable Allergies Active Allergy Reactions Criticality [...] time each day. 2 tablet 4 Active doxazosin (Cardura) 2 [...] other nostril if symptoms continue 1 each 5 Active carvedilol (Coreg) 12.5 MG tablet Take 1 tablet by mouth 2 times a day with meals. 60 tablet 5 Active hydrALAZINE (Apresoline) 25 MG tablet Take 3 tablets by mouth 3 times a day. 270 tablet Active levothyroxine (Synthroid, Levoxyl) 88 MCG tablet Take 1 tablet by mouth daily before breakfast. 30 tablet 5 Active aspirin 81 MG chewable tablet Chew 1 tablet daily. 30 tablet 5 Active Active Problems Problem Noted Date Diagnosed [...] Encounters Date Type Department Care Team Description 07/16/2025 Patient Outreach [address], [address] [place] [address] Baylee Gracia RN HRCM 07/10/2025 Patient Outreach POPULATION [address], [address] [place] [address] Baylee Gracia, RN HRCM 07/04/2025 Patient Outreach POPULATION [address], [address] [place] [address] Baylee Gracia RN HRCM 07/01/2025 Patient Outreach [address], [address] [place] [address] Baylee Gracia, RN [facility] 06/25/2025 Patient Outreach POPULATION HEALTH Count includes the [facility] [address], [address] [place] [address] Baylee Gracia, RN [facility] 06/23/2025 Orders Only External Location [address] [place] [address] Familia Shabazz DO 06/19/2025 Patient Outreach POPULATION HEALTH Count includes the [facility] [address], [address] [place] [address] Baylee Gracia, RN [facility] 06/17/2025 Orders Only [facility] Medicine Virtual Dept. [address] [place] [address] Mayra Rogers MD 06/17/2025 Patient Outreach POPULATION HEALTH Count includes the [facility] [address], [address] [place] [address] Baylee Gracia, CHAO [facility] 06/17/2025 Patient Outreach POPULATION HEALTH Count includes the [facility] [address], [address] [place] [address] Baylee Gracia, RN [facility] 06/13/2025 Patient Outreach POPULATION HEALTH Count includes the [facility] [address], [address] [place] [address] Baylee Gracia, RN [facility] 06/12/2025 Patient Outreach POPULATION HEALTH Count includes the [facility] [address], [address] [place] [address] Baylee Gracia, RN [facility] 06/12/2025 Referral Triage POPULATION HEALTH Count includes the [facility] [address], [address] [place] [address] Baylee Gracia, CHAO 06/10/2025 Travel 06/07/2025 Travel 06/06/2025 Patient Outreach POPULATION HEALTH Count includes the [facility] [address], [address] [place] [address] Haydee Mccloud 06/06/2025 Travel 06/04/2025 Travel 06/03/2025 Patient Outreach POPULATION HEALTH [address], [address] [place] [address] Wendie De Leon Link 06/03/2025 Patient Outreach POPULATION [facility] [address], [address] [place] [address] Haydee Mccloud Link 06/02/2025 Travel 06/01/2025 4:48 PM EDT - 06/10/2025 4:54 PM EDT Hospital Encounter [facility] Inpatient [address] [place] [address] Faiza Nye MD Buckingham, Bradley P, MD Doty, MD Ken Munguia, Mayra Aviles MD Acute pulmonary edema (CMS/HCC) (Primary Dx); [...] 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; History of glaucoma; Chronic congestive heart failure, unspecified heart failure type (CMS/HCC) Discharge Disposition: Home or Self Care 06/01/2025 Travel 05/21/2025 Telephone [facility] [address] [place] [address] Clarice Zhou I, RN 05/15/2025 Telephone [facility] [address] [place] [address] Clarice Zhou I, RN 05/13/2025 Orders Only [facility] [address], [address] [place] [id number] Tiny Summers MD Renal mass (Primary Dx) 05/06/2025 1:27 PM EDT - 05/06/2025 8:09 PM EDT Emergency [facility] A Emergency Department [address] [place] [address] Sena Navarro MD Renal mass (Primary Dx); ESRD (end stage renal disease) ([facility]) Discharge Disposition: Home or Self Care 05/06/2025 Travel 05/05/2025 4:00 PM EDT - 05/05/2025 6:01 PM EDT Emergency [facility] A Emergency Department [address] [place] [address] Neno Elizabeth MD ESRD (end stage renal disease) on dialysis ([facility]) (Primary Dx); Elevated TSH; Hyperphosphatemia Discharge [...] and Family Not on file 06/25/2024 Attends [employer] Not on file 06/25 Active Member [...] any time in the past 12 m [facility], were you homeless or living in a fci (including now)? No 06/03/2025 [facility] Utilities Answer Date Recorded In the past [...] drink first t jacqueline in the morning (EYE-SCOUT SNIPER) to steady your nerves or to get rid of a hangover? 0 06/21/2024 CAGE Questionnaire Score 0 024 Comments Unknown Sex and Gender Information Value Date Recorded Sex Assigned at Female 07/03/2024 2:13 PM EDT Legal Sex Female 7:39 PM EDT Gender Identity Not on file Sexual Orientation Not on file Last Filed Vital Signs Vital Sign Reading Time Taken Comments Blood Pressure 160/109 06/23/2025 2:16 PM EDT Pulse 68 06/23/2025 2:16 PM EDT Temperature 36.7 C (98 F) 06/23/2025 2:16 PM EDT Respiratory Rate 20 06/23/2025 2:16 PM EDT Oxygen Saturation 94% 06/23/2025 2:16 PM EDT 3L/NC Inhaled Oxygen Concentration - - Weight 57.5 kg (126 lb 12.2 oz) 06/10/2025 6:24 AM EDT Height 170.2 cm (5' 7 ) 06/01/2025 3:35 PM EDT Body Mass Index 19.85 06/01/2025 3:35 PM EDT Plan of Treatment Upcoming Encounters Date Type Department Care Team (Late st Contact Info) Description 08/20/2025 12:00 PM EST [facility] Visit [facility] [address], [address] [place] [address] Kaiden Harvey MD [address] [place] [address] Health Maintenance Due Date Last Done Comments [facility]-Depression Screening 1970 [facility]-Medicare Annual Wellness (AWV) 1970 [facility]-/Child/Adol SDOH Screenings 1970 [id number] Vaccine (#1) 1974 Diabetes: Dental Exam 1979 [...] Plan Heart failure progression and care needs Baylee Ramirez RN Procedures Procedure Name Priority Date/Time Associated Diagnosis Comments XR OUTSIDE IMAGES 06/23/2025 12:11 PM EDT HEMODIALYSIS INPATIENT Routine 06/10/2025 9:13 AM EDT [...] PM EDT ESRD (end stage renal disease) ([facility]) Unspecified complication of cardiac and vascular [...] Recently Relevant to Health Maintenance Results * XR OUTSIDE IMAGES (06/23/2025 12:11 PM EDT) Anatomical Region Laterality Modality Radiographic Amira ging 06/23/2025 12:1 1 PM EDT Familia Shabazz IMG XR PROCEDURES Edited Res ult - Final * (ABNORMAL) CBC and Differential (06/10/2025 4:24 AM EDT) Only the most recent of11 resultswithin the time period is included. WBC Count 7.28 3.70 - 10.30 10*3/uL LAB HEMATOLOGY METHOD 06/10/2025 4:48 AM EDT [facility] RBC Count 3.10(L) 3.90 - 5.20 10*6/uL LAB HEMATOLOGY METHOD 06/10/2025 4:48 AM EDT [facility] HGB 8.1(L) 11.2 - 15.7 g/dL LAB HEMATOLOGY METHOD 06/10/2025 4:48 AM EDT [facility] HCT 29.1(L) 34.0 - 45.0 % LAB HEMATOLOGY METHOD 06/10/2025 4:48 AM EDT [facility] Platelet Count 64(L) 155 - 369 10*3/uL LAB HEMATOLOGY METHOD 06/10/2025 4:48 AM EDT [facility] MCV 94 79 - 98 fL LAB HEMATOLOGY METHOD 06/10/2025 4:48 AM EDT [facility] MCH 26.1 26.0 - 32.0 pg LAB HEMATOLOGY METHOD 06/10/2025 4:48 AM EDT [facility] MCHC 27.8(L) 30.7 - 35.5 g/dL LAB HEMATOLOGY METHOD 06/10/2025 4:48 AM EDT [facility] RDW 16.0(H) 11.5 - 14.5 % LAB HEMATOLOGY METHOD 06/10/2025 4:48 AM EDT [facility] MPV 12.1 8.8 - 12.5 fL LAB HEMATOLOGY METHOD 06/10/2025 4:48 AM EDT [facility] nRBC 0.0 <=0.0 per 100 WBCs LAB HEMATOLOGY METHOD 06/10/2025 4:48 AM EDT [facility] Differential Type Automated LAB HEMATOLOGY METHOD 06/10/2025 4:48 AM EDT [facility] Neutrophils % 79 % LAB HEMATOLOGY METHOD 06/10/2025 4:48 AM EDT [facility] Lymphocytes % 9 % LAB HEMATOLOGY METHOD 06/10/2025 4:48 AM EDT [facility] Monocytes % 7 % LAB HEMATOLOGY METHOD 06/10/2025 4:48 AM EDT [facility] Eosinophils % 3 % LAB HEMATOLOGY METHOD 06/10/2025 4:48 AM EDT [facility] Basophils % 1 % LAB HEMATOLOGY METHOD 06/10/2025 4:48 AM EDT [facility] Immature Granulocytes % 1 % LAB HEMATOLOGY METHOD 06/10/2025 4:48 AM EDT [facility] Neutrophils Absolute 5.88 1.60 - 6.10 10*3/uL LAB HEMATOLOGY METHOD 06/10/2025 4:48 AM EDT [facility] Lymphocytes Absolute 0.65(L) 1.20 - 3.90 10*3/uL LAB HEMATOLOGY METHOD 06/10/2025 4:48 AM EDT [facility] Monocytes Absolute 0.47 0.30 - 0.90 10*3/uL LAB HEMATOLOGY METHOD 06/10/2025 4:48 AM EDT [facility] Eosinophils Absolute 0.20 0.00 - 0.50 10*3/uL LAB HEMATOLOGY METHOD 06/10/2025 4:48 AM EDT [facility] Basophils Absolute 0.04 0.00 - 0.10 10*3/uL LAB HEMATOLOGY METHOD 06/10/2025 4:48 AM EDT [facility] Immature Granulocytes Absolute 0.04 0.00 - 0.06 10*3/uL LAB HEMATOLOGY METHOD 06/10/2025 4:48 AM EDT [facility] Blood Venous blood specimen / Unknown Venipuncture / Unknown 06/10/2025 4:24 AM EDT 06/10/2025 4:42 AM EDT [facility] - 06/10/2025 4:48 AM EDT Therapeutic decision making should be based on absolute values, rather than percentages. us Faiza Nye MD LAB BLOOD ORDERABLES Final Re sult Performing Organization Address [facility] de Phone Number [facility] [address] [place] [address] * (ABNORMAL) Phosphorus, Plasma (06/10/2025 4:24 AM EDT) Only the most recent of11 resultswithin the time period is included. Phosphorus, Plasma 4.6(H) 2.5 - 4.5 mg/dL 06/10/2025 5:09 AM EDT [facility] Blood Venous blood specimen / Unknown Venipuncture / Unknown 06/10/2025 4:24 AM EDT 06/10/2025 4:40 AM EDT Faiza Nye MD LAB BLOOD ORDERABLES Final Re sult Performing Organization Address [facility] de Phone Number [facility] [address] [place] [address] * Magnesium, Plasma (06/10/2025 4:24 AM EDT) Only the most recent of11 resultswithin the time period is included. Magnesium, Plasma 2.1 1.9 - 2.4 mg/dL 06/10/2025 5:09 AM EDT [facility] Blood Venous blood specimen / Unknown Venipuncture / Unknown 06/10/2025 4:24 AM EDT 06/10/2025 4:40 AM EDT Faiza Nye MD LAB BLOOD ORDERABLES Final Re sult Performing Organization Address [facility] Co de Phone Number [facility] [address] [place] [address] * (ABNORMAL) Comprehensive Metabolic Panel, Plasma (06/10/2025 4:24 AM EDT) Only the most recent of11 resultswithin the time period is included. Glucose, Plasma 165(H) 74 - 99 mg/dL 06/10/2025 5:09 AM EDT [facility] BUN, Plasma 57(H) 7 - 21 mg/dL 06/10/2025 5:09 AM EDT [facility] Creatinine, Plasma 3.74(H) 0.60 - 1.10 mg/dL 06/10/2025 5:09 AM EDT [facility] BUN/Creatinine Ratio 15 06/10/2025 5:09 AM EDT [facility] Sodium, Plasma 136 136 - 145 mmol/L 06/10/2025 5:09 AM EDT [facility] Potassium, Plasma 4.1 3.6 - 4.9 mmol/L 06/10/2025 5:09 AM EDT [facility] Chloride, Plasma 99 97 - 107 mmol/L 06/10/2025 5:09 AM EDT [facility] CO2, Plasma 23 22 - 29 mmol/L 06/10/2025 5:09 AM EDT [facility] Anion Gap 14 6 - 16 mmol/L 06/10/2025 5:09 AM EDT [facility] Total Calcium, Plasma 8.2(L) 8.9 - 10.2 mg/dL 06/10/2025 5:09 AM EDT [facility] Total Protein 5.8(L) 6.3 - 7.9 g/dL 06/10/2025 5:09 AM EDT [facility] Albumin, Plasma 2.7(L) 3.5 - 5.2 g/dL 06/10/2025 5:09 AM EDT [facility] AST, Plasma 9(L) 10 - 35 U/L 06/10/2025 5:09 AM EDT [facility] ALT, Plasma <5(L) 10 - 35 U/L 06/10/2025 5:09 AM EDT [facility] Alkaline Phosphatase, Plasma 166(H) 46 - 142 U/L 06/10/2025 5:09 AM EDT [facility] Total Bilirubin, Plasma 0.4 0.2 - 1.1 mg/dL 06/10/2025 5:09 AM EDT [facility] eGFRcr 13.6 mL/min/1.7 3m*2 06/10/2025 5:09 AM EDT [facility] Comment:Reported eGFRcr in m L/min/1.73m2 is based the CKD-EPI 2020 equation that does not use a race coefficient. Blood Venous blood specimen / Unknown Venipuncture / Unknown 06/10/2025 4:24 AM EDT 06/10/2025 4:40 AM EDT us Faiza Nye MD LAB BLOOD ORDERABLES Final Re sult Performing Organization Address [facility] Co de Phone Number [facility] [address] [place] [address] * (ABNORMAL) POCT glucose meter (06/05/2025 11:54 AM EDT) Only the most recent of6 resultswithin the time period is included. POCT Glucose 127(H) 74 - 99 mg/dL 06/05/2025 11:56 AM EDT [facility] Comment:Accuracy of a [...] Comment 06/05/2025 11:56 AM EDT [facility] Floor Tiling Professional ID Milagros Lopez 06/05/2025 11:56 AM EDT [facility] Device ID [id number] 06/05/2025 11:56 AM EDT [facility] Specimen Type POC Capillary 06/05/2025 11:56 AM EDT [facility] Blood Capillary blood specimen / Unknown 06/05/2025 11:54 AM EDT 06/05/2025 11:56 AM EDT us Mayra Rogers MD LAB POINT OF CARE TE ST DOCKED DEVICE UNSOLICITED RESULTS Final Result Performing Organization Address [facility] Co de Phone Number [facility]ALTH[facility]ARE LAB [address] [place] [address] * Hepatitis B Surface Antibody, Quantitative (06/05/2025 2:21 AM EDT) Only the most recent of2 resultswithin the time period is included. Pathologist [facility] Hepatitis B Surface Antibody, Quantitative <8.00 NonReactiv e: <8, Grayzone: 8 - <12, Reactive: >= 12 mIU/mL 06/05/2025 5:18 AM EDT [facility] Comment: Nonreactive. Individual is considered not immune to HBV infection. Blood Venous blood specimen / Unknown Venipuncture / Unknown 06/05/2025 2:21 AM EDT 06/05/2025 2:35 AM EDT Mayra Rogers MD LAB BLOOD ORDERABLES Final Resul t Performing Organization Address [facility] de Phone Number [facility] [address] [place] [address] * Acute Hepatitis Panel (06/05/2025 2:21 AM EDT) Only the most recent of2 resultswithin the time period is included. Hepatitis B Surf Antigen Negative Negative 06/05/2025 4:43 AM EDT [facility] Hepatitis C Antibody Negative Negative 06/05/2025 4:43 AM EDT [facility] Hepatitis A Antibody IgM Negative Negative 06/05/2025 4:43 AM EDT [facility] Hepatitis B Core Antibody IgM Negative Negative 06/05/2025 4:43 AM EDT [facility] Blood Venous blood specimen / Unknown Venipuncture / Unknown 06/05/2025 2:21 AM EDT 06/05/2025 2:35 AM EDT Mayra Rogers MD LAB BLOOD ORDERABLES Final Resul t Performing Organization Address [facility] de Phone Number [facility] [address] [place] [address] * IR Angiogram ArterioVenous Shunt (06/04/2025 2:31 [...] EDT CLINICAL INDICATION: Low flow AVF TECHNIQUE: Life Skills Instructor: Dr. Ferris Secondary Floor Tiling Professional: None Rad Dose: 3 mGy = Procedure: [...] over a guide wire for a 4 [place]ut micropuncture sheath. The micropuncture sheath was exchanged for a 6 [place] vascular sheath. Via the sheath, A stiff [...] a 7 mm x 4 cm conquest SHREDDER/GRANULATOR OPERATOR balloon with acceptable technical result. Digital subtraction [...] 06/04/2025 CLINICAL INDICATION: Low flow AVF TECHNIQUE: Life Skills Instructor: Dr. Ferris Secondary Floor Tiling Professional: None Rad Dose: 3 mGy = Procedure: [...] exchangedover a guide wire for a 4 [place] micropuncture sheath. The micropuncturesheath was exchanged for a 6 [place] vascular sheath. Via the sheath, [place] glide [...] a 7 mm x 4 cm conquest SHREDDER/GRANULATOR OPERATOR balloon with acceptable technical result.Digital subtraction angiography [...] LAB HEMATOLOGY METHOD 06/03/2025 2:01 PM EDT [facility] HCT 28.6(L) 34.0 - 45.0 % LAB HEMATOLOGY METHOD 06/03/2025 2:01 PM EDT [facility] Blood Venous blood specimen / Unknown Venipuncture / Unknown 06/03/2025 12:43 PM EDT 06/03/2025 2:01 PM EDT us Mayra Rogers MD LAB BLOOD ORDERABLES Final Resul t [facility] [address] [place] [address] * VAS US Hemodialysis Access Left (06/02/2025 [...] is no recent study available for direct rxfa-gc-xvea comparison. Unable to complete study due to [...] is no recent study available for direct llra-ez-mvmk comparison. us Faiza Nye MD CV ECHO PROCEDURES Final Resu lt * (ABNORMAL) TSH Reflex FT4 (06/02/2025 4:07 AM EDT) Thyroid Stimulating Hormone, Plasma 23.70(H) 0.40 - 4.20 uIU/mL 06/02/2025 5:37 PM EDT [facility] Blood Venous blood specimen / Unknown Venipuncture / Unknown 06/02/2025 4:07 AM EDT 06/02/2025 4:26 AM EDT Mayra Rogers MD LAB BLOOD ORDERABLES Final Resul t Performing Organization Address City/[facility]/ZIP Co de Phone Number [facility] [address] [place] [address] * (ABNORMAL) Free T4, Plasma (06/02/2025 4:07 AM EDT) Only the most recent of2 resultswithin the time period is included. Free T4, Plasma 0.6(L) 0.8 - 1.7 ng/dL 06/02/2025 6:15 PM EDT [facility] Blood Venous blood specimen / Unknown Venipuncture / Unknown 06/02/2025 4:07 AM EDT 06/02/2025 4:26 AM EDT Mayra Rogers MD LAB BLOOD ORDERABLES Final Resul t Performing Organization Address City/[facility]/ZIP Co de Phone Number [facility] [address] [place] [address] * SARS-CoV-2, Flu A, Flu B, and RSV - Rapid (06/01/2025 6:53 PM EDT) [facility] SARS CoV-2/COVID-19 RNA PCR Result Not Detected Not Detected 06/01/2025 7:59 PM EDT [facility] Influenza A Virus PCR Result Not Detected Not Detected 06/01/2025 7:59 PM EDT [facility] Influenza B Virus PCR Result Not Detected Not Detected 06/01/2025 7:59 PM EDT [facility] Respiratory Syncytial Virus (RSV) PCR Result Not Detected Not Detected 06/01/2025 7:59 PM EDT [facility] Swab Nasopharyngeal structure / Unknown Non-blood Collection / Unknown 06/01/2025 6:53 PM EDT 06/01/2025 7:02 PM EDT Narrative [facility] - 06/01/2025 7:59 PM EDT [...] OR DERABLES Final Result Performing Organization Address [facility] [place] [address] * Blood Culture (Aerobic/Anaerobet Set) (06/01/2025 6:52 PM EDT) Only the most recent of2 resultswithin the time period is included. Culture No growth at day 5 06/06/2025 8:01 PM EDT [facility] Blood Structure of right hand / Unknown Venipuncture / Unknown 06/01/2025 6:52 PM EDT 06/01/2025 7:03 PM EDT Narrative [facility] - 06/06/2025 8:01 PM EDT Low blood volume submitted, results may be compromised Faiza Nye MD LAB MICROBIOLOGY - GENERAL OR DERABLES Final Result Performing Organization Address [facility] Co de Phone Number [facility] [address] [place] [address] * XR Chest 1 View (06/01/2025 5:10 [...] MD on 06/01/2025 7:25 PM us Klarissa Vinson DO IMG XR PROCEDURES Final Resul t * EKG now - STAT (adult) (06/01/2025 4:57 PM EDT) Only the most recent of2 resultswithin the time period is included. EKG DIAGNOSIS CLASS Abnormal MUSE ECG Ventricular Rate 48 BPM MUSE ECG Atrial Rate 48 BPM MUSE ECG NH Interval 154 ms MUSE ECG QRSD Interval 114 ms MUSE ECG QT Interval 478 ms MUSE ECG QTC Interval 427 ms MUSE ECG P [place] 54 degrees MUSE ECG R [place] 116 degrees MUSE ECG T Wave [place] -12 degrees MUSE ECG Diagnosis Sinus bradycardia with premature atrial complexes with aberrant conduction MUSE ECG Diagnosis Low voltage QRS MUSE ECG Diagnosis Possible , old Anterior infarct MUSE ECG Diagnosis Left posterior fascicular block MUSE ECG Diagnosis Nonspecific T wave abnormality MUSE ECG Diagnosis Abnormal ECG MUSE ECG Diagnosis MUSE ECG Diagnosis Confirmed by Michael Garner ([id number]) on 06/02/2025 10:26:53 AM MUSE ECG 06/01/2025 4:57 PM EDT 06/02/2025 10:26 AM EDT Klarissa Vinson DO ECG ORDERABLES Final Result MUSE ECG * (ABNORMAL) BNP (06/01/2025 4:47 PM EDT) Pathologist [facility] N-Terminal, PROBNP, Plasma >70,000(H) 0 - 899 pg/mL 06/01/2025 10:34 PM EDT [facility] Blood Venous blood specimen / Unknown Venipuncture / Unknown 06/01/2025 4:47 PM EDT 06/01/2025 4:53 PM EDT us Faiza Nye MD LAB BLOOD ORDERABLES Final Re sult [facility] [address] [place] [address] * (ABNORMAL) CBC (06/01/2025 4:47 PM EDT) [facility] WBC Count 6.37 3.70 - 10.30 10*3/uL LAB HEMATOLOGY METHOD 06/01/2025 5:00 PM EDT [facility] RBC Count 3.11(L) 3.90 - 5.20 10*6/uL LAB HEMATOLOGY METHOD 06/01/2025 5:00 PM EDT [facility] HGB 8.6(L) 11.2 - 15.7 g/dL LAB HEMATOLOGY METHOD 06/01/2025 5:00 PM EDT [facility] HCT 30.3(L) 34.0 - 45.0 % LAB HEMATOLOGY METHOD 06/01/2025 5:00 PM EDT [facility] Platelet Count 46(L) 155 - 369 10*3/uL LAB HEMATOLOGY METHOD 06/01/2025 5:00 PM EDT [facility] MCV 97 79 - 98 fL LAB HEMATOLOGY METHOD 06/01/2025 5:00 PM EDT [facility] MCH 27.7 26.0 - 32.0 pg LAB HEMATOLOGY METHOD 06/01/2025 5:00 PM EDT [facility] MCHC 28.4(L) 30.7 - 35.5 g/dL LAB HEMATOLOGY METHOD 06/01/2025 5:00 PM EDT [facility] RDW 15.4(H) 11.5 - 14.5 % LAB HEMATOLOGY METHOD 06/01/2025 5:00 PM EDT [facility] MPV LAB HEMATOLOGY METHOD 06/01/2025 5:00 PM EDT [facility] Comment:Not Measured nRBC 0.0 <=0.0 per 100 WBCs LAB HEMATOLOGY METHOD 06/01/2025 5:00 PM EDT [facility] Blood Venous blood specimen / Unknown Venipuncture / Unknown 06/01/2025 4:47 PM EDT 06/01/2025 4:53 PM EDT us Klarissa Vinson DO LAB BLOOD ORDERABLES Final Re sult [facility] [address] [place] [address] * (ABNORMAL) Blood gas panel, venous (06/01/2025 4:47 PM EDT) Only the most recent of2 resultswithin the time period is included. pH, Venous 7.34 7.32 - 7.43 LAB HEMATOLOGY METHOD 06/01/2025 4:54 PM EDT [facility] pCO2, Venous 51 37 - 52 mmHg LAB HEMATOLOGY METHOD 06/01/2025 4:54 PM EDT [facility] pO2, Venous 39 25 - 40 mmHg LAB HEMATOLOGY METHOD 06/01/2025 4:54 PM EDT [facility] SO2, Measured, Venous 66 65 - 80 % LAB HEMATOLOGY METHOD 06/01/2025 4:54 PM EDT [facility] Base Excess, Venous 1.5 -2.0 - 3.0 mmol/L LAB HEMATOLOGY METHOD 06/01/2025 4:54 PM EDT [facility] Bicarbonate, Calculated, Venous 28(H) 22 - 26 mmol/L LAB HEMATOLOGY METHOD 06/01/2025 4:54 PM EDT [facility] Hematocrit, Whole Blood 26.2(L) 34.0 - 45.0 % LAB HEMATOLOGY METHOD 06/01/2025 4:54 PM EDT [facility] Sodium, Whole Blood 138 136 - 145 mmol/L LAB HEMATOLOGY METHOD 06/01/2025 4:54 PM EDT [facility] Potassium, Whole Blood 3.3(L) 3.6 - 4.9 mmol/L LAB HEMATOLOGY METHOD 06/01/2025 4:54 PM EDT [facility] Chloride, Whole Blood 96(L) 97 - 107 mmol/L LAB HEMATOLOGY METHOD 06/01/2025 4:54 PM EDT [facility] Glucose, Whole Blood 158(H) 74 - 99 mg/dL LAB HEMATOLOGY METHOD 06/01/2025 4:54 PM EDT [facility] Lactate, Venous, Whole Blood 0.8 0.5 - 2.2 mmol/L LAB HEMATOLOGY METHOD 06/01/2025 4:54 PM EDT [facility] Ionized Calcium, Whole Blood 4.5(L) 4.6 - 5.1 mg/dL LAB HEMATOLOGY METHOD 06/01/2025 4:54 PM EDT [facility] Blood Venous blood specimen / Unknown Venipuncture / Unknown 06/01/2025 4:47 PM EDT 06/01/2025 4:53 PM EDT us Klarissa Vinson DO LAB BLOOD ORDERABLES Final Re sult [facility] [address] [place] [address] * Quantiferon TB Gold (05/06/2025 4:22 PM EDT) [facility] Quantiferon TB Gold Plus Result Negative Negative 05/07/2025 8:11 PM EDT [facility] TB Nill Value 0.0799 IU/mL 05/07/2025 8:11 PM EDT [facility] TB Antigen 1 -0.0075 IU/mL 05/07/2025 8:11 PM EDT [facility] TB Antigen 2 0.0026 IU/mL 05/07/2025 8:11 PM EDT [facility] TB Mitogen 9.9201 IU/mL 05/07/2025 8:11 PM EDT [facility] Blood Venous blood specimen / Unknown Venipuncture / Unknown 05/06/2025 4:22 PM EDT 05/06/2025 4:56 PM EDT Narrative [facility] - 05/07/2025 8:11 PM EDT Responses to the Mitogen positive control and occasionally to TB antigen can be above the assay range. For calculation purposes: IFN-gamma values > 10 IU/mL are handled as 10 IU/mL. us Sumi Land MD LAB BLOOD ORDERABLES Final Res ult [facility] [address] [place] [address] * (ABNORMAL) BMP (05/06/2025 1:25 PM EDT) [facility] Glucose, Plasma 174(H) 74 - 99 mg/dL 05/06/2025 1:50 PM EDT [facility] BUN, Plasma 74(H) 7 - 21 mg/dL 05/06/2025 1:50 PM EDT [facility] Creatinine, Plasma 5.20(H) 0.60 - 1.10 mg/dL 05/06/2025 1:50 PM EDT [facility] BUN/Creatinine Ratio 14 05/06/2025 1:50 PM EDT [facility] Sodium, Plasma 136 136 - 145 mmol/L 05/06/2025 1:50 PM EDT [facility] Potassium, Plasma 3.4(L) 3.6 - 4.9 mmol/L 05/06/2025 1:50 PM EDT [facility] Chloride, Plasma 96(L) 97 - 107 mmol/L 05/06/2025 1:50 PM EDT [facility] CO2, Plasma 20(L) 22 - 29 mmol/L 05/06/2025 1:50 PM EDT [facility] Anion Gap 20(H) 6 - 16 mmol/L 05/06/2025 1:50 PM EDT [facility] Total Calcium, Plasma 7.0(L) 8.9 - 10.2 mg/dL 05/06/2025 1:50 PM EDT [facility] eGFRcr 9.2 mL/min/1.7 3m*2 05/06/2025 1:50 PM EDT [facility] Comment:Reported eGFRcr in m L/min/1.73m2 is based the CKD-EPI 2020 equation that does not use a race coefficient. Blood Venous blood specimen / Unknown Venipuncture / Unknown 05/06/2025 1:25 PM EDT 05/06/2025 1:27 PM EDT Sena Navarro MD LAB BLOOD ORDERABLES Final Resu lt Performing Organization Address City/State/[facility] Co de Phone Number [facility] [address] [place] [address] * Type and screen (05/05/2025 4:24 PM [...] TEST ORDERABLES Final Result Performing Organization Address City/[facility] Co de Phone Number BLOOD BANK [address] * (ABNORMAL) Thyroid Stimulating Hormone, Plasma (05/05/2025 4:24 PM EDT) Thyroid Stimulating Hormone, Plasma 12.22(H) 0.40 - 4.20 uIU/mL 05/05/2025 4:57 PM EDT [facility] Blood Venous blood specimen / Unknown Venipuncture / Unknown 05/05/2025 4:24 PM EDT 05/05/2025 4:29 PM EDT Narrative [facility] - 05/05/2025 4:57 PM EDT Trimester Specific Ranges TSH ( IU/mL) 1st Trimester 0.1 - 3.0 2nd Trimester 0.19 - 4.06 3rd Trimester 0.3 - 3.7 Adalberto Feliz MD LAB BLOOD ORDERABLES Final Res ult Performing Organization Address [facility]/ZIP Co de Phone Number [facility] [address] [place] [address] * (ABNORMAL) Hemoglobin A1c (06/30/2024 11:32 AM EDT) Hemoglobin A1c 5.7(H) <5.7 % 06/30/2024 1:16 PM EDT [facility] Blood Venous blood specimen / Unknown Venipuncture / Unknown 06/30/2024 11:32 AM EDT 06/30/2024 12:28 PM EDT Narrative [facility] - 06/30/2024 1:16 PM EDT HA1C Interpretive Data: Diagnosis of Diabetes: Diabetic > or = 6.5% Pre-diabetic 5.7 to 6.4% Non-diabetic < or = 5.6% Glycemic Targets for Type I and Type II Diabetics: Non- Adults <7.0% Adults <6.0% Children and Adolescents <7.5% Source: [place] [employer]. Standards of medical care in diabetes,2017. Diabetes Care.2017:40 (suppl 1):S1-S135. HbA1c assay performed by an ion-exchange chromatography method that is certified traceable to the [facility]. Jemal Nolan MD LAB BLOOD ORDERABLES Final Resul t Performing Organization Address City/[facility]/ZIP Co de Phone Number [facility] [address] [place] [address] * ED HIV 1/2 Antibody/Antigen Screen w/Reflex to HIV 1/2 Differentiation (06/21/2024 4:48 PM EDT) HIV 1 & 2 Antibody/Antigen Screen Non Reactive Non Reactive 06/21/2024 6:09 PM EDT [facility] Comment:Screening for HIV 1 & 2 antibodies, and P24 antigen is NONREACTIVE. No confirmatory testing is required. Blood Venous blood specimen / Unknown Venipuncture / Unknown 06/21/2024 4:48 PM EDT 06/21/2024 5:26 PM EDT Douglas Thurman MD LAB BLOOD ORDERABLES Final Resul t Performing Organization Address City/[facility] Co de Phone Number [facility] [address] [place] [phone] from Last 3 Months or Most Recently Relevant to Health Maintenance Additional Health Concerns Active Problems Noted Date Diagnosed Date Heart Failure diagnosis knowledge deficit 2024 Fluid retention / overload 06/19/2025 Sodium intake 06/19/2025 Heart failure medication adherence 06/19/2025 Exercise regimen 06/19/2025 Heart failure maintenance 06/19/2025 Heart failure progression and care needs 025 Insurance Advance Directives * DNR/DNI (Latest Code Status [...] Patient has decision-making capacity? Yes Care Teams Microbiology Lab Technician Relationship Specialty Start Date End Date Rosemarie Riley, STEVE [address] [place] [address] PCP - General 04/02/25 Baylee Gracia, RN Registered Nurse 06/12/25
--- OUTSIDE RECORDS SUMMARY | 2025-07-22 01:25 | XMS_ITS | Encounter Summary ---
Author Organization [facility] Address [address] [place] [address] Care Team Providers Care Assistant Gm Of Content & Delivery Name Role Phone Osmani Becker MD Primary Care Provider [phone] Rosemarie Riley APRN Primary Care Provider [phone] Haydee Mccloud Unavailable Unavailable Baylee Gracia RN Unavailable Unavailable Encounter Details Date Type Department Care Team (Late st Contact Info) Description 02/21/2025 Orders Only External Location [address] [place] [address] Provider, External Social History Tobacco Use Types [...] drink first t jacqueline in the morning (EYE-PHOTOGRAMMETRY AIRPLANE PILOT) to steady your nerves or to get [...] Upcoming Encounters Date Type Department Care Team ([facility] st Contact Info) Description 08/20/2025 12:00 PM EST Office Visit [facility] [place] [address], [address] [place] [address] Kaiden Harvey MD [address] [place] [address] documented as of this encounter [...] documented as of this encounter Care Teams Assistant Gm Of Content & Delivery Relationship Specialty Start Date End Date Osmani Becker MD [address] [facility] [address] [place] [address] PCP - General 01/30/21 03/03/25 Rosemarie Riley APRN [address] [place] [address] PCP - General 04/02/25 Haydee Mccloud Admitting Clerk Boilermaker Ship 06/03/25 06/25/25 Baylee Gracia, RN Registered Nurse 06/12/25 documented as of this encounter
--- OUTSIDE RECORDS SUMMARY | 2025-07-22 01:25 | XMS_ITS | Encounter Summary ---
Author Organization [facility] Address [address] [place] [address] Care Team Providers Care Manufacturing Team Member Name Role Phone RileyRosemarie beach Shanel WILSON Primary Care Provider [phone] Baylee Gracia RN Unavailable Unavailable Reason for Visit * Reason Comments HRCM Encounter Details Date Type Department Care Team ([facility] Contact Info) Description 07/10/2025 Patient Outreach POPULATION HEALTH [address] [facility] [address], [address] [place] [address] Baylee Gracia, RN HRCM Social [...] and Family Not on file 06/25/2024 Attends [employer] Services Not on file 06/25 Active Member [...] were you homeless or living in a snf (including now)? No 06/03/2025 [facility] Utilities Answer Date Recorded In the [...] drink first t jacqueline in the morning (EYE-FLIGHT LINE SERVICE ATTENDANT) to steady your nerves or to get [...] * Progress Notes - Baylee Gracia - 07/10/2025 11:24 AM EDT 07/10/2025 HRCM Follow-Up Call Patient is UTR. Patient reached: No Care coordination Summary: Fu with patient in 1-14 days. Next Steps: Check list updated. Baylee Gracia CM Nurse Population Health documented in this encounter Plan of Treatment Upcoming Encounters Date Type Department Care Team (Late st Contact Info) Description 08/20/2025 12:00 PM EST Office Visit [facility] [place] [address] [facility], [address] [place] [address] Kaiden Harvey MD [address] [place] [address] documented as of this encounter [...] months Care Plan Heart failure maintenance No Gracia, Baylee J, RN Patient will verbalize understanding of heart [...] documented as of this encounter Care Teams Manufacturing Team Member Relationship Specialty Start Date End Date Rosemarie Riley, STEVE [address] [place] [address] PCP - General 04/02/25 Baylee Gracia, RN Registered Nurse 06/12/25 documented as of this encounter
--- OUTSIDE RECORDS SUMMARY | 2025-07-22 01:25 | XMS_ITS | Encounter Summary ---
Author Organization [facility] Address [address] [place] [address] Care Team Providers Care Security Professional Name Role Phone Osmani Becker MD Primary Care Provider [phone] Rosemarie Riley APRN Primary Care Provider [phone] Haydee Mccloud Unavailable Unavailable Baylee Gracia RN Unavailable Unavailable Encounter Details Date Type Department Care Team (Late st Contact Info) Description 02/20/2025 Orders Only External Location [address] [place] [address] Provider, External Social History Tobacco Use Types [...] and Family Not on file 06/25/2024 Attends Religion Services Not on file 06/25 Active Member [...] drink first t jacqueline in the morning (EYE-KILN PLACER) to steady your nerves or to get [...] Description 08/20/2025 12:00 PM EST Office Visit [facility] [place] [address], [address] [place] [address] Kaiden Harvey MD [address] [place] [address] documented as of this encounter [...] documented as of this encounter Care Teams Security Professional Relationship Specialty Start Date End Date Osmani Becker MD [id number] [place] [address] PCP - General 01/30/21 03/03/25 Rosemarie Riley APRN [address] [place] [address] PCP - General 04/02/25 Haydee Mccloud Plastic Worker Personal Care Assistant 06/03/25 06/25/25 Baylee Gracia, RN Registered Nurse 06/12/25 documented as of this encounter
--- OUTSIDE RECORDS SUMMARY | 2025-07-22 01:25 | XMS_ITS ---
Author Organization [facility] Address [address] [place] [address] Care Team Providers Care Wardrobe Stylist Name Role Phone Rosemarie Riley APRN Primary Care Provider [phone] Baylee Gracia RN Unavailable Unavailable Transitional Care Management Status:Closed (Closed) Start date:06/12/2025 Enrollment date:06/17/2025 Enrollment reason:Identified using hospital discharge data End date:07/12/2025 Close reason:Patient graduated Overview This episode type is for outpatient care managers enrolling patients in the CMS Transitional Care Management program. Continued Care and Services Coordination
--- OUTSIDE RECORDS SUMMARY | 2025-07-22 01:25 | XMS_ITS | Encounter Summary ---
Author Organization [facility] Address [address] [place] [address] Care Team Providers Care Aircraft Fueler Name Role Phone Osmani Becker MD Primary Care Provider [phone] Rosemarie Riley APRN Primary Care Provider [phone] Haydee Mccloud Unavailable Unavailable Baylee Gracia RN Unavailable Unavailable Encounter Details Date Type Department Care Team (Late st Contact Info) Description 02/20/2025 Orders Only External Location [address] [place] [address] Provider, External Social History Tobacco Use Types [...] drink first t jacqueline in the morning (EYE-PERSONAL SECURITY SPECIALIST) to steady your nerves or to [...] Upcoming Encounters Date Type Department Care Team ([facility] st Contact Info) Description 08/20/2025 12:00 PM EST Office Visit [facility] [place] [address], [address] [place] [address] Kaiden Harvey MD [address] [place] [address] documented as of this encounter [...] documented as of this encounter Care Teams Aircraft Fueler Relationship Specialty Start Date End Date Osmani Becker MD [address] [facility] [address] [place] [address] PCP - General 01/30/21 03/03/25 Rosemarie Riley APRN [address] [place] [address] PCP - General 04/02/25 Haydee Mccloud Specifications Writer Manager Restaurant 06/03/25 06/25/25 Baylee Gracia, RN Registered Nurse 06/12/25 documented as of this encounter
--- OUTSIDE RECORDS SUMMARY | 2025-07-22 01:25 | XMS_ITS | Encounter Summary ---
Author Organization [facility] Address [address] [place] [address] Care Team Providers Care Rn Cardiovascular Icu Name Role Phone RileyRosemarie beach Shanel WILSON Primary Care Provider [phone] Baylee Gracia RN Unavailable Unavailable Reason for Visit * Reason Comments HRCM Encounter Details Date Type Department Care Team ([facility] Contact Info) Description 07/04/2025 Patient Outreach POPULATION HEALTH [address] [facility], [address] [place] [address] Baylee Gracia, RN HRCM Social [...] and Family Not on file 06/25/2024 Attends [employer] Not on file 06/25 Active Member [...] any time in the past 12 m [facility], were you homeless or living in a usp (including now)? No 06/03/2025 [facility] Utilities Answer Date Recorded In the [...] drink first t jacqueline in the morning (EYE-MATE FIRST) to steady your nerves or to get [...] * Progress Notes - Baylee Gracia - 07/04/2025 10:35 AM EDT 07/04/2025 HRCM Follow-Up Call Patient reached: Yes Care coordination Summary: Reached patient and son, Wade. Patient was DC late last week from [place]. He reports she is doing great. Mobility is improving. Her mood and overall mental health seems to be improving. They are seeing [facility] tomorrow and have a pulm function test scheduled. They FU with PCP next week per son. No medication barriers at this time. They were driving so unable to review each med. RN reminded about medication compliance due to chronic care needs and fu with providers for ongoing health concerns with CHF and lung function. RN to fu with patient and son in 1-14 days. Next Steps: Checklist updated. Baylee Gracia [facility] Nurse Population Health documented in this encounter Plan of Treatment Upcoming Encounters Date Type Department Care Team (Late st Contact Info) Description 08/20/2025 12:00 PM EST Office Visit [facility] [place] [address] [facility], [address] [place] [address] Kaiden Harvey MD [address] [place] [address] documented as of this [...] documented as of this encounter Care Teams Rn Cardiovascular Icu Relationship Specialty Start Date End Date Rosemarie Riely APRN [address] [place] [address] PCP - General 04/02/25 Baylee Gracia RN Registered Nurse 06/12/25 documented as of this encounter
--- OUTSIDE RECORDS SUMMARY | 2025-07-22 01:25 | XMS_ITS ---
Author Organization [facility] Address [address] [place] [address] Care Team Providers Care Clay Puddler Name Role Phone Rosemarie Riley APRN Primary Care Provider [phone] Baylee Gracia RN Unavailable Unavailable High Risk Care Management Status:Identified (Enrolling) Start date:06/12/2025 Enrollment reason:Identified using hospital discharge data Overview This is a Population Health program aimed at increasing positive outcomes for high-risk patients. Case Team Name Relationship Phone Baylee Gracia RN(Responsible Staff) Registered Nurse Continued Care and Services Coordination
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
--- OUTSIDE RECORDS SUMMARY | 2025-07-22 01:25 | XMS_ITS | Encounter Summary ---
Author Organization [facility] Address [address] [place] [address] Care Team Providers Care Hydroelectric Station Chief Name Role Phone Osmani Becker MD Primary Care Provider [phone] Rosemarie Riley APRN Primary Care Provider [phone] Haydee Mccloud Unavailable Unavailable Baylee Gracia RN Unavailable Unavailable Encounter Details Date Type Department Care Team (Late st Contact Info) Description 12/24/2024 Orders Only External Location [address] [place] [address] Provider, External Social History Tobacco Use Types [...] and Family Not on file 06/25/2024 Attends Gnosticism Services Not on file 06/25 Active Member [...] drink first t jacqueline in the morning (EYE-CELLAR PACKER) to steady your nerves or to get [...] Description 08/20/2025 12:00 PM EST Office Visit [facility] [address], [address] [place] [address] Kaiden Harvey MD [address] [place] [address] documented as of this encounter [...] documented as of this encounter Care Teams Hydroelectric Station Chief Relationship Specialty Start Date End Date Osmani Becker MD [address] [facility] [address] [place] [address] PCP - General 01/30/21 03/03/25 Rosemarie Riley APRN [address] [place] [address] PCP - General 04/02/25 Haydee Mccloud Residential Lawn Specialist Rn Acute Dialysis 06/03/25 06/25/25 Baylee Gracia, RN Registered Nurse 06/12/25 documented as of this encounter
--- OUTSIDE RECORDS SUMMARY | 2025-07-22 01:25 | XMS_ITS | Encounter Summary ---
Author Organization [facility] Address [address] [place] [address] Care Team Providers Care Buckle Sorter Name Role Phone Osmani Becker MD Primary Care Provider [phone] Rosemarie Riley APRN Primary Care Provider [phone] Haydee Mccloud Unavailable Unavailable Baylee Gracia RN Unavailable Unavailable Encounter Details Date Type Department Care Team (Late st Contact Info) Description 02/20/2025 Orders Only External Location [address] [place] [address] Provider, External Social History Tobacco Use Types [...] and Family Not on file 06/25/2024 Attends Adventism Services Not on file 06/25 Active Member [...] drink first t jacqueline in the morning (EYE-LOOM SETTER) to steady your nerves or to get [...] Description 08/20/2025 12:00 PM EST Office Visit [facility] [place] [address], [address] [place] [address] Kaiden Harvey MD [address] [place] [address] documented as of this encounter [...] documented as of this encounter Care Teams Buckle Sorter Relationship Specialty Start Date End Date Osmani Becker MD [address] [facility] [address] [place] [address] PCP - General 01/30/21 03/03/25 Rosemarie Riley APRN [address] [place] [address] PCP - General 04/02/25 Haydee Mccloud Can Crimper Quad Stayer 06/03/25 06/25/25 Baylee Gracia, RN Registered Nurse 06/12/25 documented as of this encounter
--- OUTSIDE RECORDS SUMMARY | 2025-07-22 01:25 | XMS_ITS ---
Care Plan Created on: July 22, 2025 Mar Waldron : 1970 Sex: Female Author Organization [facility] Address [address] [place] [address] Care Team Providers Care Footwear Sales Representative Name Role Phone Rosemarie Riley APRN Primary Care Provider [phone] Baylee Gracia RN Unavailable Unavailable Active Problems Problem Noted Date [...] and care needs No Baylee Gracia RN Interventions Care Plan Interventions Intervention Entry Date Outcome Educate on palliative care and hospice 06/19/2025 Evaluate readiness for advanced care planning and utilize ACP tools within [facility] for discussion and documentation. 06/19/2025 Educate patient on trajectory of chronic illness 06/19/2025 Educate patient on potential treatments for each stage 06/19/2025 Educate patient regarding symptoms with end stage heart failure 06/19/2025 Educate patient on stages of heart failure 06/19/2025 Educate patient to monitor symptoms and [...] more information about heart disease, visit The [place] [employer]'s website at https://www.heart.org/en/health-topics 06/19/2025 Encourage [...] information about heart disease , visit The [place] [employer]'s website at https://www.heart.org/en/health-topics; Encourage patient [...] over the next 3 months Educate patient to monitor symptoms and weight [...] care planning and utilize ACP tools within [facility] for discussion and documentation.; Educate patient on trajectory of chronic illness; Educate patient on potential treatments for each stage; Educate patient regarding symptoms with end stage heart failure; Educate patient on stages of heart failure
--- OUTSIDE RECORDS SUMMARY | 2025-07-22 01:25 | XMS_ITS ---
Author Organization [facility] Address [address] [place] [address] Care Team Providers Care Family And Consumer Education Teacher Name Role Phone Rosemarie Riley APRN Primary Care Provider [phone] Baylee Gracia RN Unavailable Unavailable LINK Program Status:Closed (Closed) Start date:06/03/2025 Enrollment reason:Identified using hospital discharge data End date:06/25/2025 Close reason:Not Eligible Overview This episode type is for outpatient care managers enrolling patients in the CMS LINK program. Continued Care and Services Coordination
--- OUTSIDE RECORDS SUMMARY | 2025-07-22 01:26 | XMS_ITS | Encounter Summary ---
Author Organization [facility] Address [address] [place] [address] Care Team Providers Care Turner Off Name Role Phone RosemaryRosemarie Shanel WILSON Primary Care Provider [phone] Haydee Mccloud Unavailable Unavailable Baylee Gracia RN Unavailable Unavailable Reason for Visit * Reason Comments TCM Encounter Details Date Type Department Care Team (Late st Contact Info) Description 06/17/2025 Patient Outreach POPULATION HEALTH [address], [address] [place] [address] Baylee Gracia, RN TCM Social History Tobacco Use Types Packs/Day [...] and Family Not on file 06/25/2024 Attends Mandaeism Services Not on file 06/25 Active Member [...] any time in the past 12 m [facility], were you homeless or living in a longterm (including now)? No 06/03/2025 [facility] Utilities Answer Date Recorded In the past [...] drink first t jacqueline in the morning (EYE-CORK PRESSING MACHINE OPERATOR) to steady your nerves or to [...] Upcoming Encounters Date Type Department Care Team ([facility] st Contact Info) Description 08/20/2025 12:00 PM EST Office Visit [facility] [place] [address] [facility], [address] [place] [address] Kaiden Harvey MD [address] [place] [address] documented as of this encounter Visit Diagnoses Not on filedocumented in this encounter Additional Health Concerns Assessment Noted Time A Body Mass Index follow-up plan has been documented for the patient 06/10/2025 2:59 PM EDT documented as of this encounter Care Teams Turner Off Relationship Specialty Start Date End Date Rosemarie Riley APRN [address] [place] [address] PCP - General 04/02/25 Haydee Mccloud Mapping Editor Dredge Hand 06/03/25 06/25/25 Baylee Gracia, RN Registered Nurse 06/12/25 documented as of this encounter
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
--- OUTSIDE RECORDS SUMMARY | 2025-07-22 01:26 | XMS_ITS | Continuity of Care Document ---
Author Organization [facility] [facility] Address [address] [place] [address] Assessment No assessment recorded. Plan of Treatment Reminders Order Date Submit Date Provider Last Modified By Organization Details Last Modified Time Details Appointments FOLLOW UP 15 2024 04:45P Alex Riley APRN Not available Not available Not available FOLLOW UP 30 2024 11:30A Alex Riley APRN Not available Not available Not available Lab None recorded . Referral None recorded . Procedures None recorded . Surgeries None recorded . Imaging None recorded . Medication Orders None recorded . Patient TargetsNo targets recorded. Patient InstructionsNo instructions recorded. Reason for Referral None Reported. Results Created Date Observation Date Name Description Value Unit Range Abnormal Flag Note LastModifiedBy Organization Detail LastModifiedTime 05/07/2005/07/2025 HbA1c (hemo globi n A1c), blood HbA1c 5.0 Not Available [address], [address], 05/07/2025 13:53:21 Result Notes None recorded. Problems Name Problem SNOMED Code Status Onset Date Resolution Date Notes Provider Name and Address Organization Details Recorded Time Coronary arterioscle rosis 65857207 Active 2024 Rosemarie Riley APRN [address] [place], [address], [employer]. 13:58:19 Type 2 diabetes mellitus 29608841 Active 2024 Rosemarie Riley APRN [address] [place], [address], [employer] 5 13:59:15 Essential hypertensio n 32120667 Active 2024 Rosemarie Riley APRN [address] [place] [address], [address], [employer] 5 13:59:31 Complex regional pain syndrome type I of bilateral lower limbs 7934302408977 07 Active 2024 Rosemarie Riley APRN [address] [place] [address], [address], [employer] 5 14:00:04 Moderate recurrent major depression 21242517 Active 2024 Rosemarie Riley APRN [address] [place] [address], [address], [employer] 5 14:00:29 Acquired hypothyroid ism 818090182 Active 2024 Rosemarie Riley APRN [address] [place] [address], [address], [employer] 5 14:00:44 Pressure injury of right buttock stage II Active 2024 Rosemarie Riley APRN [address] [place] [address], [address], [employer] 5 14:21:25 Abnormal gait 87474379 Active 2024 Rosemarie Riley APRN [address] [place] [address], [address], [employer] 5 14:21:47 Complete blindness of left eye 461049981 Active 2024 Rosemarie Riley APRN [address] [place] [address], [address], [employer] 5 14:23:27 Chronic diarrhea 994228118 Active 2024 Rosemarie Riley APRN [address] [place] [address], [address] 8, [employer] 14:24:37 Heart murmur 63263821 Active 2024 Rosemarie Riley APRN [address] [place], [address], [employer] 14:26:27 Pancytopeni a 680414386 Active 2024 Rosemarie Riley APRN [address] [place], [address], [employer] 5 17:38:46 Chronic hypoxemic respiratory failure 961060340 Active 2024 Rosemarie Riley APRN [address] [place] [address], [address] [place] [address] 8, [employer] 5 11:53:35 Chronic kidney disease mineral and bone disorder 777227476 Active 2024 Rosemarie Riley APRN [address] [place] [address], [address], [employer] 22:20:50 Problem Notes None recorded. Procedures Surgical History Date Name Laterality Status Provider Name and Address Organization Details Recorded Time 4 coronary artery bypass grafts x 3 completed [employer] [employer] 05/07/2025 13:52:30 Imaging Results None recorded. Procedure Notes None recorded. Medical Equipment None Reported. Allergies Allergen ID Allergen Name Allergen Category Reaction Reaction Severity Criticality Documentation Date Start Date Code Code System Note Provider Name and Address Organization Details Recorded Time 94699 Basaglar medicatio n Not available Not available Not available 05/07/2025 43400 59 RxNorm LESLIE MYNEAR [employer], [employer] 13:45:00 68629 lisinopri l medicatio n Not available Not available Not available 05/07/2025 61716 RxNorm LESLIE MYNEAR [employer], [employer] 13:45:08 Medications Name Sig Start Date Stop [...] Address Organization Details Last Updated DateTime 5 25519.9 7 g 97 [degF] 52 /min 89 % 89 % 113/59 mm[Hg] LESLIE SHANE [employer], [employer] 11:23:49 Social History Question Answer Notes LastModified by Organizat ion Details LastModified Time Tobacco Smoking Status Former Smoker LESLIE christianson, [employer] 05/24/2025 11:24:54 What Was The Date Of [...] Joint, or Bone Problems Y Reflux/GERD Y Acid Reflux (GERD) Y Heart Disease Y Dialysis Y Thyroid Problems Y Kidney Disease Y Gynecological HistoryNo gynecological history recorded. Obstetrics History GPAL:G 0 P 0 0 0 0 Immunizations Vaccine Type Date Status Note Provider Nam e and Address Organization Details Recorded Time Hep B, adult 7 completed Not Available [facility] 05/24/2025 11:14:45 Influenza, split virus, trivalent, preservative 3 completed Not Available [facility] 05/24/2025 11:14:45 influenza, seasonal, intradermal, preservative free 4 completed Not Available [facility] 05/24/2025 11:14:45 Td(adult) unspecified formulation 6 completed Not Available [facility] 05/24/2025 11:14:45 Past Encounters Encounter ID Performer Location Encounter Start Date Encounter Closed Date Diagnosis/Indication Diagnosis SNOMED-CT Code Diagnosis ICD10 Code Diagnosis IMO Codes Diagnosis Note [id number] Rosemarie Riley, [address] [address] 05/07/2025 12:38:03 05/07/2025 14:44:03 Coronary arteriosclerosis 96730468 I25.10 [id number] Referred to cardiology Type 2 hardik betkeenan mellitus 39750567 E11.22 N18.6 Z99.2 [id number] We will begin home health for nursing care for the decubitus ulcer and physical therapy. We will refer her to be establishe d with chronic pain management , cardiology , diabetic footcare, and endocrinol ogy. We will obtain her lab work that was done yesterday at the [facility]. Will obtain a stool specimen for GI PCR. We will do a trial of Lomotil short-term for the diarrhea. I am unsure why she is not taking Renagel as she is on dialysis. We will follow-up with her in 2 weeks. Healthy nutrition and hydration and her renal diet was explained to both her and her son. Essential hypertension 56868879 I10 66091 Complex re gional pain syndrome type I of bilateral lower limbs 4804358870 79153 G90.523 79136132 Refer to pain management she has been taking oxycodone scheduled for over 20 years. Moderate r ecurrent major depression 85920416 F33.1 38489599 Continue lexapro Acquired hypothyroidism 960111265 E03.9 08751 Referred to endocrinol ogy Pressure i njury of right buttock stage II 8295640863 5105 L89.312 6415841536 Begin home health for wound care and physical therapy Abnormal gait 47694220 R 26.81 523072 Obtain rollator walker. She does have a wheelchair and a bedside commode. Complete b lindness of left eye 165519877 H54.42A5 5868944994 Chronic diarrhea 5801503 09 K52.9 39061 Heart murmur 57383022 R0 1.1 54402 Will need echo when she establishe s with cardiology . [id number] Rosemarie Rosemary [address] [address] 05/24/2025 11:11:09 05/24/2025 15:00:44 Pancytopenia 392047430 D61.818 56688 Pressure i njury of right buttock stage II 1009591274 5105 L89.312 5107520952 Begin home health for wound care and physical therapy Chronic ki dney disease mineral and bone disorder 874341084 N18.5 E83.9 M89.9 Z99.2 [id number] Health Concerns Section Related Observation LastModified by Organization Detai ls LastModified Time None Recorded Concern Status LastModified by Organization Details LastModified Time None Recorded Payers Encounter Date Sequence Insurance Name Policy Number Policy Araujo Covered Member ID Araujo Member ID Guarantor Name 05/24/2025 1 [employer] - GOLD PLUS (MEDICARE REPLACEMENT/A DVANTAGE - HMO) Mar Waldron [id number] Mar Waldron Notes Date Note Type Note Provider Name and Address Organization Details Recorded Time 05/24/2025 text/html ROS as noted in the HPI The patient presents via wheelchair with her son and kbqjihlk-wq-kld for hospital follow-up. She was admitted to the [facility] for pancytopenia. Dehydration. Chronic kidney disease on dialysis, and a decubitus ulcer on her buttock with failure to thrive. She is continuing dialysis as an outpatient. Her son and fvbkzizt-wt-akb have been dressing the wound appropriately and it is healing well. They are continuing pressure relief techniques. Mar has issues with chronic pain and she has an appointment to establish with a chronic pain clinic and also follow-up with nephrology and a gym supervisor. Home health was previously ordered but her son has not completed transition of her Medicare from a [place] plan to a [place] plan. Rosemarie Riley, CYLINDER SANDER OPERATOR [address] [facility], [place], [address], [facility] [employer] 06/20/2025 22:21:11 OBGyn Episode No OBEpisode recorded.
--- OUTSIDE RECORDS SUMMARY | 2025-07-22 01:26 | XMS_ITS | Encounter Summary ---
Author Organization [facility] Address [address] [place] [address] Care Team Providers Care Continuous Mining Machine Company Miner Name Role Phone RosemaryRosemarie Shanel WILSON Primary Care Provider [phone] Haydee Mccloud Unavailable Unavailable Reason for Visit * Reason Comments Link Encounter Details Date Type Department Care Team ([facility] st Contact Info) Description 06/03/2025 Patient Outreach POPULATION HEALTH [address], [address] [place] [address] Wendie De Leon Social History [...] any time in the past 12 m [facility], were you homeless or living in a retirement (including now)? No 06/03/2025 [facility] Utilities Answer Date Recorded In [...] drink first t jacqueline in the morning (EYE-FILTER BED PLACER) to steady your nerves or to [...] encounter Miscellaneous Notes * Progress Notes - Wendie De Leon - 06/03/2025 1:54 PM EDT [...] she comes home from the hospital or [facility]. He stated he will speak with his brother before they decide. Advised him thatif they choose to enroll that it would be a good idea for one of them to be present for the home visit. documented in this encounter Plan of Treatment Upcoming Encounters Date Type Department Care Team (Late st Contact Info) Description 08/20/2025 12:00 PM EST Office Visit [facility] [place] [address], [address] [place] [address] Kaiden Harvey MD [address] [place] [address] documented as of this encounter Visit Diagnoses Not on filedocumented in this encounter Additional Health Concerns Assessment Noted Time A Body Mass Index follow-up plan has been documented for the patient 06/10/2025 2:59 PM EDT documented as of this encounter Care Teams Continuous Mining Machine Company Miner Relationship Specialty Start Date End Date Rosemarie Riley APRN [address] [place] [address] PCP - General 04/02/25 Haydee Mccloud Fire Battalion Chief Makeup Instructor 06/03/25 06/25/25 documented as of this encounter
--- OUTSIDE RECORDS SUMMARY | 2025-07-22 01:26 | XMS_ITS | Encounter Summary ---
Author Organization [facility] Address [address] [place] [address] Care Team Providers Care Sewer Pipe Layer Name Role Phone RileyRosemarie beach Shanel WILSON Primary Care Provider [phone] Haydee Mccloud Unavailable Unavailable Baylee Gracia RN Unavailable Unavailable Reason for Visit * Reason Comments HRCM Encounter Details Date Type Department Care Team (Late st Contact Info) Description 06/25/2025 Patient Outreach POPULATION HEALTH [address], [address] [place] [address] Baylee Gracia, RN HRCM Social [...] and Family Not on file 06/25/2024 Attends Mosque Services Not on file 06/25 Active Member [...] were you homeless or living in a care home (including now)? No 06/03/2025 [facility] [...] drink first t jacqueline in the morning (EYE-ORE BUYER) to steady your nerves or to get [...] * Progress Notes - Baylee Gracia - 06/25/2025 11:42 AM EDT [facility] Inpatient Review Reason for Note: Inpatient Admission Review Patient is at [facility] [place] per Son. CM Nurse: Baylee Gracia 06/25/2025 11:43 AM documented in this encounter Plan of Treatment Upcoming Encounters Date Type Department Care Team (Late st Contact Info) Description 08/20/2025 12:00 PM EST Office Visit [facility] [place] [address], [address] [place] [address] Kaiden Harvey MD [address] [place] [address] documented as of this encounter [...] failure progression and care needs No Baylee Gracia, RN documented as of this encounter Visit [...] documented as of this encounter Care Teams Sewer Pipe Layer Relationship Specialty Start Date End Date Rosemarie Riley, STEVE [address] [place] [address] PCP - General 04/02/25 Haydee Mccloud Blacksmith Hammer Operator Grocery Stocker 06/03/25 06/25/25 Baylee Gracia, RN Registered Nurse 06/12/25 documented as of this encounter
--- OUTSIDE RECORDS SUMMARY | 2025-07-22 01:26 | XMS_ITS | Encounter Summary ---
Author Organization Healthcare Address [address] [place] [address] Care Team Providers Care Inspector Paper Products Name Role Phone RileyRosemarie beach Shanel WILSON Primary Care Provider [phone] Haydee Mccloud Unavailable Unavailable Baylee Gracia RN Unavailable Unavailable Encounter Details Date Type Department Care Team (Late st Contact Info) Description 06/17/2025 Orders Only [facility] Medicine Virtual Dept. [address] [place] [address] Mayra Rogers MD [address] [place] [address] Social History Tobacco Use Types Packs/Day Years Used Date Smoking Tobacco: Every Day Alcohol Use Standard Drinks/Week Comments No 0 (1 standard drink = 0.6 oz pur e alcohol) Social Connection and Isolation Panel Answer Date Recorded Frequency of Communication with Friends and Fami ly Not on file 06/25/2024 Frequency of Social Gatherin gs with Friends and Family Not on file 06/25/2024 Attends Evangelical Services Not on file 06/25 Active Member [...] any time in the past 12 m [facility], were you homeless or living in a long term (including now)? No 06/03/2025 [facility] Utilities Answer Date Recorded In the past 12 months has th e [employer], gas, oil, or water company threatened to [...] drink first t jacqueline in the morning (EYE-HYDROGEN PLANT OPERATIONS MANAGER) to steady your nerves or to get [...] Description 08/20/2025 12:00 PM EST Office Visit [facility] [place] [address] [facility], [address] [place] [address] Kaiden Harvey MD [address] [place] [address] documented as of this encounter Visit Diagnoses Not on filedocumented in this encounter Additional Health Concerns Assessment Noted Time A Body Mass Index follow-up plan has been documented for the patient 06/10/2025 2:59 PM EDT documented as of this encounter Care Teams Inspector Paper Products Relationship Specialty Start Date End Date Rosemarie Riley APRN [address] [place] [address] PCP - General 04/02/25 Haydee Mccloud Claims Representative Paper Rewinder 06/03/25 06/25/25 Baylee Gracia, RN Registered Nurse 06/12/25 documented as of this encounter
--- OUTSIDE RECORDS SUMMARY | 2025-07-22 01:26 | XMS_ITS | Encounter Summary ---
Author Organization [facility] Address [address] [place] [address] Care Team Providers Care Home Based Assistant Name Role Phone RileyRosemarie beach Shanel WILSON Primary Care Provider [phone] Baylee Gracia RN Unavailable Unavailable Reason for Visit * Reason Comments HRCM Encounter Details Date Type Department Care Team ([facility] Contact Info) Description 07/01/2025 Patient Outreach POPULATION HEALTH [address] [facility] [address], [address] [place] [address] Baylee Gracia, RN HRCM Social [...] were you homeless or living in a residential (including now)? No 06/03/2025 [facility] Utilities Answer Date Recorded In the past [...] drink first t jacqueline in the morning (EYE-FOOD SERVICE EMPLOYEE) to steady your nerves or to get [...] * Progress Notes - Baylee Gracia - 07/01/2025 1:36 PM EDT 07/01/2025 HRCM Follow-Up Call Patient reached: No Care coordination Summary: Patient is UTR, Rn to fu with patient in 1-3 days. Check list dates updated. Baylee Gracia CM Nurse Population Health documented in this encounter Plan of Treatment Upcoming Encounters Date Type Department Care Team (Late st Contact Info) Description 08/20/2025 12:00 PM EST Office Visit [facility] [place] [address] [facility] [address] [facility], [address] [place] [address] Kaiden Harvey MD [address] [address] [place] [address] documented as of this encounter [...] documented as of this encounter Care Teams Home Based Assistant Relationship Specialty Start Date End Date Rosemarie Riley, STEVE [address] [place] [address] PCP - General 04/02/25 Baylee Gracia, RN Registered Nurse 06/12/25 documented as of this encounter
--- OUTSIDE RECORDS SUMMARY | 2025-07-22 01:26 | XMS_ITS | Encounter Summary ---
Author Organization [facility] Address [address] [place] [address] Care Team Providers Care Business Asst Name Role Phone RosemaryRosemarie Shanel WILSON Primary Care Provider [phone] Haydee Mccloud Unavailable Unavailable Baylee Gracia RN Unavailable Unavailable Reason for Visit * Reason Comments TCM Encounter Details Date Type Department Care Team (Late st Contact Info) Description 06/12/2025 Patient Outreach POPULATION HEALTH [address], [address] [place] [address] Baylee Gracia, RN TCM Social [...] any time in the past 12 m [facility], were you homeless or living in a care home (including now)? No 06/03/2025 [facility] Utilities Answer Date Recorded In the past [...] drink first t jacqueline in the morning (EYE-ANTI TANK MISSILEMAN) to steady your nerves or to get [...] Description 08/20/2025 12:00 PM EST Office Visit [facility] [place] [address] [facility], [address] [place] [address] Kaiden Harvey MD [address] [place] [address] documented as of this encounter Visit Diagnoses Not on filedocumented in this encounter Additional Health Concerns Assessment Noted Time A Body Mass Index follow-up plan has been documented for the patient 06/10/2025 2:59 PM EDT documented as of this encounter Care Teams Business Asst Relationship Specialty Start Date End Date Rosemarie Riley APRN [address] [place] [address] PCP - General 04/02/25 Haydee Mccloud Global Category Manager Commercial Litigation Attorney 06/03/25 06/25/25 Baylee Gracia, RN Registered Nurse 06/12/25 documented as of this encounter
--- OUTSIDE RECORDS SUMMARY | 2025-07-22 01:26 | XMS_ITS | Encounter Summary ---
Author Organization [facility] Address [address] [place] [address] Care Team Providers Care Vallez Filter Operator Name Role Phone RosemaryRosemarie Shanel WILSON Primary Care Provider [phone] Haydee Mccloud Unavailable Unavailable Baylee Gracia RN Unavailable Unavailable Reason for Visit * Reason Comments TCM Encounter Details Date Type Department Care Team (Late st Contact Info) Description 06/17/2025 Patient Outreach [facility] [address], [address] [place] [address] Baylee Gracia, RN TCM Social [...] and Family Not on file 06/25/2024 Attends Worship Services Not on file 06/25 Active Member [...] any time in the past 12 m [facility], were you homeless or living in a jail (including now)? No 06/03/2025 [facility] Utilities Answer Date Recorded In [...] drink first t jacqueline in the morning (EYE-MANAGER IMAGING) to steady your nerves or to get [...] seen. RN confirmed with Dr. Becker in [facility] she is being seen on 06/18/2025. Rn provided pain interventions for patient and son. RN to fu with patient for HRCM needs. documented in this encounter Plan of Treatment Upcoming Encounters Date Type Department Care Team (Late st Contact Info) Description 08/20/2025 12:00 PM EST Office Visit [facility] [place] [address] , [address] [place] [address] Kaiden Harvey MD [address] [facility] [address] [place] [address] documented as of this encounter Visit Diagnoses Not on filedocumented in this encounter Additional Health Concerns Assessment Noted Time A Body Mass Index follow-up plan has been documented for the patient 06/10/2025 2:59 PM EDT documented as of this encounter Care Teams Vallez Filter Operator Relationship Specialty Start Date End Date Rosemarie Riley APRN [address] [place] [address] PCP - General 04/02/25 Haydee Mccloud Staining Machine Operator Job Placement Counselor 06/03/25 06/25/25 Baylee Gracia, RN Registered Nurse 06/12/25 documented as of this encounter
--- OUTSIDE RECORDS SUMMARY | 2025-07-22 01:26 | XMS_ITS | Encounter Summary ---
Author Organization [facility] Address [address] [place] [address] Care Team Providers Care Woods Boss Name Role Phone RileyRosemarie beach STEVE Primary Care Provider [phone] Haydee Mccloud Unavailable Unavailable Baylee Gracia RN Unavailable Unavailable Encounter Details Date Type Department Care Team (Late st Contact Info) Description 06/12/2025 Referral Triage POP[facility] [address] [facility], [address] [place] [address] Baylee Gracia, RN Social History Tobacco Use Types Packs/Day Years [...] time in the past [address] [facility], were you homeless or living in a jail (including now)? No 06/03/2025 [facility] Utilities Answer Date Recorded In the past [...] first t jacqueline in the morning (EYE-OIL RECOVERY OPERATOR) to steady your nerves or to [...] Description 08/20/2025 12:00 PM EST Office Visit [facility] [place] [address], [address] [place] [address] Kaiden Harvey MD [address] [place] [address] documented as of this encounter Visit Diagnoses Not on filedocumented in this encounter Additional Health Concerns Assessment Noted Time A Body Mass Index follow-up plan has been documented for the patient 06/10/2025 2:59 PM EDT documented as of this encounter Care Teams Woods Boss Relationship Specialty Start Date End Date Rosemarie Riley APRN [address] [place] [address] PCP - General 04/02/25 Haydee Mccloud Airline Radio Operator Security Sales Consultant 06/03/25 06/25/25 Baylee Gracia, RN Registered Nurse 06/12/25 documented as of this encounter
--- OUTSIDE RECORDS SUMMARY | 2025-07-22 01:26 | XMS_ITS | Encounter Summary ---
Author Organization [facility] Address [address] [place] [address] Care Team Providers Care Sign Installer Name Role Phone RosemaryRosemarie Shanel WILSON Primary Care Provider [phone] Haydee Mccloud Unavailable Unavailable Reason for Visit * Reason Comments Link Encounter Details Date Type Department Care Team ([facility] st Contact Info) Description 06/03/2025 Patient Outreach [facility] [address], [address] [place] [address] Haydee Mccloud Link Social History [...] and Family Not on file 06/25/2024 Attends [employer] Not on file 06/25 Active Member [...] time in the past 12 m [facility], were you homeless or living in a mcc (including now)? No 06/03/2025 [facility] Utilities Answer Date Recorded In the [...] drink first t jacqueline in the morning (EYE-CLIENT DELIVERY SPECIALIST) to steady your nerves or to [...] Behavior (Lifetime) No 8:00 AM EDT Alex eMrino, CHAO documented as of this encounter Miscellaneous [...] by phone. Haydee Mccloud LINK Navigator [email or web address] documented in this encounter Plan of Treatment Upcoming Encounters Date Type Department Care Team (Late st Contact Info) Description 08/20/2025 12:00 PM EST Office Visit [facility] [place] [address] [facility], [address] [place] [address] Kaiden Harvey MD [address] [facility] [address] [place] [address] documented as of this encounter Visit Diagnoses Not on filedocumented in this encounter Additional Health Concerns Assessment Noted Time A Body Mass Index follow-up plan has been documented for the patient 06/10/2025 2:59 PM EDT documented as of this encounter Care Teams Sign Installer Relationship Specialty Start Date End Date Rosemarie Riley APRN [facility] [place] [address] PCP - General 04/02/25 Haydee Mccloud Aeronautics Commission Director Assurance Manager 06/03/25 06/25/25 documented as of this encounter
--- OUTSIDE RECORDS SUMMARY | 2025-07-22 01:26 | XMS_ITS | Encounter Summary ---
Author Organization [facility] Address [address] [place] [address] Care Team Providers Care Boat Hoist Operator Helper Name Role Phone RileyRosemarie beach Shanel WILSON Primary Care Provider [phone] Haydee Mccloud Unavailable Unavailable Baylee Gracia RN Unavailable Unavailable Reason for Visit * Reason Comments TCM Encounter Details Date Type Department Care Team (Late st Contact Info) Description 06/13/2025 Patient Outreach [facility] [address], [address] [place] [address] Baylee Gracia, RN TCM Social [...] time in the past 12 m [facility] [place] [facility], were you homeless or living in a mcfp (including now)? No 06/03/2025 [facility] Utilities Answer Date Recorded In the [...] drink first t jacqueline in the morning (EYE-IT SECURITY CONSULTANT) to steady your nerves or to get [...] Description 08/20/2025 12:00 PM EST Office Visit [facility] [place] [address] [facility], [address] [place] [address] Kaiden Harvey MD [address] [place] [address] documented as of this encounter Visit Diagnoses Not on filedocumented in this encounter Additional Health Concerns Assessment Noted Time A Body Mass Index follow-up plan has been documented for the patient 06/10/2025 2:59 PM EDT documented as of this encounter Care Teams Boat Hoist Operator Helper Relationship Specialty Start Date End Date Rosemarie Riley APRN [address] [place] [address] PCP - General 04/02/25 Haydee Mccloud Shellfish Bed Worker Clinical Informatics Spec 06/03/25 06/25/25 Baylee Gracia, RN Registered Nurse 06/12/25 documented as of this encounter
--- OUTSIDE RECORDS SUMMARY | 2025-07-22 01:26 | XMS_ITS | Encounter Summary ---
Author Organization [facility] Address [address] [place] [address] Care Team Providers Care Grommet Worker Name Role Phone RosemaryRosemarie Shanel WILSON Primary Care Provider [phone] Haydee Mccloud Unavailable Unavailable Encounter Details Date [...] and Family Not on file 06/25/2024 Attends [employer] Services Not on file 06/25 Active Member [...] time in the past 12 m [facility], were you homeless or living in a alf (including now)? No 06/03/2025 [facility] Utilities Answer Date Recorded In the [...] drink first t jacqueline in the morning (EYE-EXPEDITER CLERK) to steady your nerves or to [...] Description 08/20/2025 12:00 PM EST Office Visit [facility] [place] [address] [facility], [address] [place] [address] Kaiden Harvey MD [address] [place] [address] documented as of this encounter Visit Diagnoses Not on filedocumented in this encounter Additional Health Concerns Assessment Noted Time A Body Mass Index follow-up plan has been documented for the patient 06/10/2025 2:59 PM EDT documented as of this encounter Care Teams Grommet Worker Relationship Specialty Start Date End Date Rosemarie Riley APRN [address] [place] [address] PCP - General 04/02/25 Haydee Mccloud Hop Farmer Statistics Tutor 06/03/25 06/25/25 documented as of this encounter
--- OUTSIDE RECORDS SUMMARY | 2025-07-22 01:26 | XMS_ITS | Encounter Summary ---
Author Organization Healthcare Address [address] [place] [address] Care Team Providers Care Composition Weatherboard Applier Name Role Phone RileyRosemarie beach Shanel WILSON Primary Care Provider [phone] Haydee Mccloud Unavailable Unavailable Baylee Gracia RN Unavailable Unavailable Encounter Details Date Type Department Care Team (Late st Contact Info) Description 06/23/2025 Orders Only External Location [address] [id number] Familia Shabazz, DO [address] [place], [place] [id number] Social History Tobacco Use Types Packs/Day Years [...] any time in the past 12 m [facility], were you homeless or living in a fpc (including now)? No 06/03/2025 [facility] Utilities Answer Date Recorded In the [...] drink first t jacqueline in the morning (EYE-STRIP CATCHER) to steady your nerves or to get [...] Description 08/20/2025 12:00 PM EST Office Visit [facility] [place], [address] [place] [address] Kaiden Harvey MD [address] [place] [address] documented as of this encounter [...] XR OUTSIDE IMAGES 06/23/2025 12:11 PM EDT documented in this encounter Results * XR OUTSIDE IMAGES (06/23/2025 12:11 PM EDT) Anatomical Region Laterality Modality Radiographic Amira ging 06/23/2025 12:1 1 PM EDT us Familia Sonya Shabazz DO IMG XR PROCEDURES Edited Res ult - Final documented in this encounter Visit Diagnoses Not [...] documented as of this encounter Care Teams Composition Weatherboard Applier Relationship Specialty Start Date End Date Rosemarie Riley, STEVE [address] [place] [address] PCP - General 04/02/25 Haydee Mccloud Spinning Doffer Accounts Receivable Executive 06/03/25 06/25/25 Baylee Gracia, RN Registered Nurse 06/12/25 documented as of this encounter
--- OUTSIDE RECORDS SUMMARY | 2025-07-22 01:26 | XMS_ITS | Encounter Summary ---
Author Organization [facility] Address [address] [place] [address] Care Team Providers Care Public Speaking Instructor Name Role Phone RosemaryRosemarie Shanel WILSON Primary Care Provider [phone] Haydee Mccloud Unavailable Unavailable Encounter Details Date [...] and Family Not on file 06/25/2024 Attends [employer]astaf[employer] Services Not on file 06/25 Active Member [...] any time in the past 12 m [facility], were you homeless or living in a penitentiary (including now)? No 06/03/2025 [facility] Utilities Answer Date Recorded In [...] drink first t jacqueline in the morning (EYE-POSTING CLERK) to steady your nerves or to [...] Indicated 06/04/2025 8:00 PM EDT [place] Phelan RN * Question Answer Date of Assessment Author 1. Wish to be (Past 1 Month) No 025 8:00 PM EDT [place] Phelan RN 2. Non-Specific Active Suici ludwin Thoughts (Past 1 Month) No 06/04/2025 8:00 PM EDT [place] Phelan RN 6. Suicidal Behavior (Lifetime) No 8:00 PM EDT [place] Phelan RN documented as of this encounter Plan of Treatment Upcoming Encounters Date Type Department Care Team (Late st Contact Info) Description 08/20/2025 12:00 PM EST Office Visit [facility] [place] [address] , [address] [place] [address] Kaiden Harvey MD [address] [place] [address] documented as of this encounter Visit Diagnoses Not on filedocumented in this encounter Additional Health Concerns Assessment Noted Time A Body Mass Index follow-up plan has been documented for the patient 06/10/2025 2:59 PM EDT documented as of this encounter Care Teams Public Speaking Instructor Relationship Specialty Start Date End Date Rosemarie Riley APRN [address] [place] [address] PCP - General 04/02/25 Haydee Mccloud Sheet Metal Fabricator Event Security Officer 06/03/25 06/25/25 documented as of this encounter
--- OUTSIDE RECORDS SUMMARY | 2025-07-22 01:27 | XMS_ITS | Encounter Summary ---
Author Organization [facility] Address [address] [place] [address] Care Team Providers Care Relay Tester Helper Name Role Phone RosemaryRosemarie Shanel WILSON Primary Care Provider [phone] Haydee Mccloud Unavailable Unavailable Encounter Details Date [...] and Family Not on file 06/25/2024 Attends [employer] Services Not on file 06/25 Active Member [...] any time in the past 12 m [facility], were you homeless or living in a mcc (including now)? No 06/03/2025 [facility] Utilities Answer Date Recorded In the past [...] drink first t jacqueline in the morning (EYE-STARCH DUMPER) to steady your nerves or to get [...] (Past 1 Month) No 06/10/2025 8:00 AM ELVIST Mayra Hung RN 2. Non-Specific Active Suicidal Thoughts (Past 1 Month) No 06/10/2025 8:00 AM EDT Mayra Hung RN 6. Suicidal Behavior (Lifetime) No 06/10/2025 8:00 AM EDT Mayra Hung RN documented as of this encounter Plan of Treatment Upcoming Encounters Date Type Department Care Team (Late st Contact Info) Description 08/20/2025 12:00 PM EST Office Visit [facility] [place] [address] [facility], [address] [place] [address] Kaiden Harvey MD [address] [place] [address] documented as of this encounter Visit Diagnoses Not on filedocumented in this encounter Additional Health Concerns Assessment Noted Time A Body Mass Index follow-up plan has been documented for the patient 06/10/2025 2:59 PM EDT documented as of this encounter Care Teams Relay Tester Helper Relationship Specialty Start Date End Date Rosemarie Riley APRN [address] [place] [address] PCP - General 04/02/25 Haydee Mccloud Electric Meter Reader Process Environmental Technician 06/03/25 06/25/25 documented as of this encounter
--- OUTSIDE RECORDS SUMMARY | 2025-07-22 01:27 | XMS_ITS | Encounter Summary ---
Author Organization Healthcare Address [address] [place] [address] Care Team Providers Care Senior Research Executive Name Role Phone Rosemarie Riley APRN Primary Care Provider [phone] Haydee Mccloud Unavailable Unavailable Reason for Referral * Consultation (Routine) - Authorized Specialty Diagnoses / Procedures Referred By Contac t Referred To Contact Diagnoses Encounter for support and coordination of transition of care Mayra Rogers MD [address] [place] [phone] Phone: tel: fax: [facility] [address] [facility] [address], [facility] [address] [place] [address] Phone: tel: Referral ID Status Reason Start Date Expiration Date Visits Requested Visits Authorized [id number] Authorized Other Co-Managemen t of Problem 06/11/2025 12/11/2026 1 1 Reason for Visit * Reason Comments Link Encounter Details Date Type Department Care Team ([facility] st Contact Info) Description 06/06/2025 Patient Outreach [facility] [address] [facility] [address], [facility] [address] [place] [address] Haydee Mccloud Link Social History [...] and Family Not on file 06/25/2024 Attends [employer] Services Not on file 06/25 Active Member [...] in a detention (including now)? No 06/03/2025 [facility] Utilities Answer Date Recorded In the [...] drink first t jacqueline in the morning (EYE-DAIRY SPECIALIST) to steady your nerves or to [...] and f/u after pt's discharge home from [facility]. Pt was resting and did not rouse easily; SW willattempt contact with pt's son by phone. Haydee Mccloud LINK Navigator [email or web address] Progress Notes - Brooke Bueno - 06/06/2025 12:42 PM EDT Patient discharged prior to LINK enrollment decision. Referred to HRCM for post- discharge support. Brooke Bueno Erp Developer Population Health documented in this encounter Plan of Treatment Upcoming Encounters Date Type Department Care Team (Late st Contact Info) Description 08/20/2025 12:00 PM EST Office Visit [facility] [place] [address], [address] [place] [address] Kaiden Harvey MD [address] [place] [address] Scheduled Referrals Name Type Priority [...] documented as of this encounter Care Teams Senior Research Executive Relationship Specialty Start Date End Date Rosemarie Riley APRN [address] [place] [address] PCP - General 04/02/25 Haydee Mccloud Frog Or Oyster Farmworker Layout Artist 06/03/25 06/25/25 documented as of this encounter
--- OUTSIDE RECORDS SUMMARY | 2025-07-22 01:27 | XMS_ITS | Encounter Summary ---
Author Organization [facility] Address [address] [place] [address] Care Team Providers Care Sourcing Manager Name Role Phone RileyRosemarie beach STEVE Primary Care Provider [phone] Encounter Details Date Type Department Care Team [...] and Family Not on file 06/25/2024 Attends [employer] Services Not on file 06/25 Active Member [...] any time in the past 12 m [facility], were you homeless or living in a half-way (including now)? No 06/03/2025 [facility] Utilities Answer Date Recorded In [...] drink first t jacqueline in the morning (EYE-PEDIATRIC ACUTE CARE UNIT NURSE) to steady your nerves or to get [...] Description 08/20/2025 12:00 PM EST Office Visit [facility] [place] [address] [facility], [address] [place] [address] Kaiden Harvey MD [address] [place] [address] documented as of this encounter Visit Diagnoses Not on filedocumented in this encounter Additional Health Concerns Assessment Noted Time A Body Mass Index follow-up plan has been documented for the patient 06/10/2025 2:59 PM EDT documented as of this encounter Care Teams Sourcing Manager Relationship Specialty Start Date End Date Rosemarie Riley APRN [address] [place] [address] PCP - General 04/02/25 documented as of this encounter
--- OUTSIDE RECORDS SUMMARY | 2025-07-22 01:27 | XMS_ITS | Referral Summary ---
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 Role Phone Osmani Becker MD Primary Care Provider [phone] Mindy Mckeon MD Unavailable Encounters Date Type Department Care Team Description 06/23/2025 6:27 PM EDT - 06/29/2025 3:55 PM EDT Hospital Encounter [address] Medical Telemetry Unit 1 [place] [address] Dajuan Banuelos MD Hughes, Isaac, PA-C Elbita, Omar, MD Mass of lung; Pleural effusion on right Discharge Disposition: Home or Self Care 06/23/2025 Travel from Last 3 Months Allergies Active Allergy Reactions Criticality Noted Date Comments Insulin Glargine Other (See Comments) NUMBNESS Lisinopril Other (See Comments) 02/02/2024 Cough Medications pantoprazole (PROTONIX) 20 MG tablet Take 1 tablet (20 mg total) by mouth daily. Active doxazosin (CARDURA) 2 MG tablet Take 1 tablet (2 mg total) by mouth nightly. Active oxyCODONE-acet aminophen (PERCOCET) 10-325 mg per tablet Take 1 tablet by mouth every 6 (six) hours as needed for pain. Active ezetimibe (ZETIA) 10 mg tablet Take 1 tablet (10 mg total) by mouth nightly. Active isosorbide mononitrate (IMDUR) 60 MG 24 hr tablet Take 2 tablets (120 mg total) by mouth daily. Active carvediloL (COREG) 12.5 MG tablet Take 1 tablet (12.5 mg total) by mouth 2 (two) times daily. Active albuterol 90 mcg/actuation inhaler Inhale 2 puffs by mouth every 6 (six) hours as needed for wheezing. Active amLODIPine (NORVASC) 10 MG tablet Take 1 tablet (10 mg total) by mouth daily. Active diphenoxylate- atropine (LOMOTIL) 2.5-0.025 mg per tablet Take 1 tablet by mouth every 6 (six) hours as needed for diarrhea. Max Daily Amount: 4 tablets Active levothyroxine (SYNTHROID) 88 MCG tablet Take 1 tablet (88 mcg total) by mouth in the morning. Active atorvastatin (LIPITOR) 80 MG tablet Take 1 tablet (80 mg total) by mouth nightly. Active escitalopram (LEXAPRO) 10 MG tablet Take 1 tablet (10 mg total) by mouth daily. Active topiramate (TOPAMAX) 25 MG tablet Take 1 tablet (25 mg total) by mouth 2 (two) times daily. Active calcitRIOL (ROCALTROL) 0.25 MCG capsule Take 1 capsule (0.25 mcg total) by mouth 3 (three) times a week TUE/TUE/TUE Administered at dialysis as directed . Active epoetin beta, methoxy peg (Mircera) 200 mcg/0.3 mL syrg Inject 200 mcg as directed every 14 (fourteen) days Administered at dialysis as directed . Active nitroglycerin (NITROSTAT) 0.4 MG SL tablet Put 1 pill under tongue every 5min as needed for chest pain.No more than 3 doses in 15min.Call 911 if pain unrelieved 5min after 1st dose. 90 tablet 06/28/20 25 2025 Active ipratropium-al buteroL (DUO-NEB) 0.5 mg-3 mg(2.5 mg base)/3 mL nebulizer solution Inhale 3 mLs by nebulization every 6 (six) hours as needed for wheezing for up to 30 days. 300 mL 06/28/20 25 2024 Active hydrALAZINE (APRESOLINE) 25 MG tablet Take 3 tablets (75 mg total) by mouth 4 (four) times daily for 30 days Look-alike/So und-alike medication. 360 tablet 06/28/202024 Active aspirin 81 MG chewable tablet Take 1 tablet (81 mg total) by mouth daily for 30 days. 30 tablet 06/28/20 25 2024 Active clopidogreL (PLAVIX) 75 mg tablet Take 1 tablet (75 mg total) by mouth daily. 2024 Discontinued carvediloL (COREG) 25 MG tablet Take 1 tablet (25 mg total) by mouth 2 (two) times daily with breakfast and dinner. 2024 Discontinued aspirin 325 MG tablet Take 1 tablet (325 mg total) by mouth daily. 2024 Discontinued cloNIDine HCL (CATAPRES) 0.1 MG tablet Take 1 tablet (0.1 mg total) by mouth 2 (two) times daily as needed (sys greater than 180). 2024 Discontinued valsartan (DIOVAN) 160 MG tablet Take 1 tablet (160 mg total) by mouth 2 (two) times daily. 2024 Discontinued hydrALAZINE (APRESOLINE) 50 MG tablet Take 1.5 tablets (75 mg total) by mouth 4 (four) times daily. 2024 Discontinued levothyroxine (SYNTHROID, LEVOTHROID) 75 MCG tablet Take 1 tablet (75 mcg total) by mouth Every morning on an empty stomach. 2024 Discontinued acetaZOLAMIDE (DIAMOX) 250 MG tablet Take 1 tablet (250 mg total) by mouth 4 (four) times daily. 2024 Discontinued hydrALAZINE (APRESOLINE) 25 MG tablet Take 3 tablets (75 mg total) by mouth 3 (three) times daily. 2024 Discontinued(S top Taking at Discharge) aspirin 81 MG EC tablet Take 1 tablet (81 mg total) by mouth daily. 2024 Discontinued(S top Taking at Discharge) rosuvastatin (Crestor) 10 MG tablet Take 1 tablet (10 mg total) by mouth daily for 30 days. 30 tablet 06/28/20 25 2024 Discontinued(S top Taking at Discharge) Active Problems Problem Noted Date Diagnosed Date CHF exacerbation 06/24/2025 Fluid overload 06/23/2025 Acute renal failure superimp osed on stage [...] living situation today? I have a [facility] place to live 06/23/2025 Think [...] Do you speak a language other than Faroese at [facility]? No 06/23/2025 Do you want help with [...] Mass Index 19.99 06/23/2025 7:17 PM EDT Functional Status * Are you [...] GLUCOSE POC Routine 06/28/2025 5:34 AM EDT MAGNESIUM Routine 06/28/2025 2:34 AM EDT COMPREHENSIVE METABOLIC PANEL Routine 06/28/2025 2:34 AM EDT CBC W/ AUTO DIFF Routine 06/28/2025 2:34 AM EDT NOVA GLUCOSE [...] GLUCOSE POC Routine 06/27/2025 5:14 AM EDT [facility] CBC SCAN Routine 06/27/2025 3:06 AM EDT MAGNESIUM Routine 06/27/2025 3:06 AM EDT COMPREHENSIVE METABOLIC PANEL Routine 06/27/2025 3:06 AM EDT CBC W/ AUTO DIFF Routine 06/27/2025 3:06 AM EDT PTT HEPARIN PROTOCOL Routine 06/26/2025 11:57 PM EDT NOVA GLUCOSE POC Routine 06/26/2025 8:12 PM EDT PTT HEPARIN PROTOCOL Routine 06/26/2025 6:24 PM EDT NOVA GLUCOSE POC Routine 06/26/2025 10:5 6 AM EDT [facility] CBC SCAN Routine 06/26/2025 8:11 AM EDT CBC W/ AUTO DIFF Routine 06/26/2025 8:11 AM EDT PTT HEPARIN PROTOCOL Routine 06/26/2025 8:11 AM EDT NOVA GLUCOSE POC Routine 06/26/2025 5:09 AM EDT [facility] CBC SCAN Routine 06/26/2025 1:18 AM EDT PHOSPHORUS Routine 06/26/2025 1:18 AM EDT MAGNESIUM Routine 06/26/2025 1:18 AM EDT COMPREHENSIVE METABOLIC PANEL Routine 06/26/2025 1:18 AM EDT CBC W/ AUTO DIFF Routine 06/26/2025 1:18 AM EDT PTT HEPARIN PROTOCOL Routine 06/26/2025 1:17 AM EDT HEMOGLOBIN AND HEMATOCRIT STAT 06/25/2025 8:21 PM EDT NOVA GLUCOSE POC Routine 06/25/2025 7:08 PM EDT PTT HEPARIN PROTOCOL Routine 06/25/2025 6:21 PM EDT NOVA GLUCOSE POC Routine 06/25/2025 4:03 PM EDT FS_MODEL_IP_TRANSFUSE RED BLOOD CELLS Routine 06/25/2025 11:24 AM EDT NOVA GLUCOSE POC Routine 06/25/2025 10:4 6 AM EDT PROTHROMBIN TIME/INR Add-On 06/25/2025 10:26 AM EDT PTT HEPARIN PROTOCOL Routine 06/25/2025 10:26 AM EDT TYPE AND SCREEN ([place] BKR) Routine 06/25/2025 9:11 AM EDT FS_MODEL_IP_PREPARE RBC Routine 06/25/2025 8:37 AM EDT PTT HEPARIN PROTOCOL Routine 06/25/2025 7:47 AM EDT [facility] CBC SCAN Routine 06/25/2025 7:46 AM EDT CBC W/ AUTO DIFF Routine 06/25/2025 7:46 AM EDT NOVA GLUCOSE POC Routine 06/25/2025 4:59 AM EDT [facility] CBC SCAN Routine 06/24/2025 9:22 PM EDT PT/INR, PTT STAT 06/24/2025 9:22 PM EDT CBC W/ AUTO DIFF STAT 06/24/2025 9:22 PM EDT PTT HEPARIN PROTOCOL Routine 06/24/2025 9:22 PM EDT NOVA GLUCOSE POC Routine 06/24/2025 8:40 PM EDT XR CHEST PA AND LATERAL STAT 06/24/2025 2:15 PM EDT US THORACENTESIS LT Routine 06/24/2025 2 :09 PM EDT CYTOLOGY ([facility]) AP Routine 06/24/2025 2:06 PM EDT Mass of lung Pleural effusion on right BODY FLUID/CSF- PATH REVIEW LAB ONLY Routine 06/24/2025 2:06 PM EDT Mass of lung Pleural effusion on right [facility] DIFFERENTIAL, BODY FLUID Routine 06/24/2025 2:06 PM EDT Mass of lung Pleural effusion on right FUNGUS CULTURE W/TERRI OR DONNA INK Routine 06/24/2025 2:06 PM EDT Mass [...] W CONTRAST Routine 06/24/2025 8:00 AM EDT HEPATITIS PANEL, ACUTE Add-On 06/24/2025 6:33 AM EDT PROBNP Routine 06/24/2025 6:33 AM EDT COMPREHENSIVE METABOLIC PANEL Routine 06/24/2025 6:33 AM EDT [facility] CBC SCAN Routine 06/24/2025 6:32 AM EDT CBC W/ AUTO DIFF Routine 06/24/2025 6:32 AM EDT PTT HEPARIN PROTOCOL Routine 06/24/2025 6:32 AM EDT HIGH SENSITIVITY TROPONIN I Routine 06/24/2025 6:32 AM EDT NOVA GLUCOSE POC Routine 06/24/2025 4:57 AM EDT PROTHROMBIN TIME/INR Routine 06/23/2025 11:27 PM EDT PTT HEPARIN PROTOCOL Routine 06/23/2025 11:27 PM EDT XR CHEST AP PORTABLE STAT 06/23/2025 10:57 PM EDT FS_MODEL_IP_ECG 12-LEAD STAT 06/23/2025 10:44 PM EDT [facility] CBC SCAN Routine 06/23/2025 8:26 PM EDT HIGH SENSITIVITY TROPONIN I STAT 06/23/2025 8:26 PM EDT COMPREHENSIVE METABOLIC PANEL STAT 06/23/2025 8:26 PM EDT CBC W/ AUTO DIFF STAT 06/23/2025 8:26 PM EDT EKG-SCANNED 06/23/2025 from Last 3 Months Results * (ABNORMAL) CBC with Automated Diff (06/29/2025 10:30 AM EDT) Only the most recent of9 resultswithin the time period is included. WBC 5.2 4.0 - 10.0 K/ L 06/29/2025 10:47 AM EDT [facility] RBC 3.10(L) 3.93 - 5.22 M/ L 06/29/2025 10:47 AM EDT [facility] Hemoglobin 8.8(L) 11.2 - 15.7 GM/DL 06/29/2025 10:47 AM EDT [facility] Hematocrit 29.2(L) 34.1 - 44.9 % 06/29/2025 10:47 AM EDT [facility] MCV 94 79 - 95 fL 06/29/2025 10:47 AM EDT [facility] MCH 28.4 25.6 - 32.2 pg 06/29/2025 10:47 AM EDT [facility] MCHC 30.1(L) 32.2 - 35.5 GM/DL 06/29/2025 10:47 AM EDT [facility] RDW 18.5(H) 11.7 - 14.4 % 06/29/2025 10:47 AM EDT [facility] Platelets 51(L) 140 - 375 K/CU MM 06/29/2025 10:47 AM EDT [facility] MPV 11.1 9.4 - 12.3 fL 06/29/2025 10:47 AM EDT [facility] % Neutros 72(H) 34 - 71 % 06/29/2025 10:47 AM EDT [facility] % Lymphs 16(L) 19 - 52 % 06/29/2025 10:47 AM EDT [facility] % Monos 7 5 - 13 % 06/29/2025 10:47 AM EDT [facility] % Eos 4 1 - 6 % 06/29/2025 10:47 AM EDT [facility] % Baso 1 0 - 1 % 06/29/2025 10:47 AM EDT [facility] NRBC Absolute <0.01 0 - 0.012 K/ul 06/29/2025 10:47 AM EDT [facility] # Neutros 3.78 1.56 - 6.13 K/ L 06/29/2025 10:47 AM EDT [facility] # Lymphs 0.81(L) 1.18 - 3.74 K/ L 06/29/2025 10:47 AM EDT [facility] # Monos 0.37 0.24 - 0.86 K/ L 06/29/2025 10:47 AM EDT [facility] # Eos 0.22 0.04 - 0.36 K/ L 06/29/2025 10:47 AM EDT [facility] # Baso 0.04 0.01 - 0.08 K/ L 06/29/2025 10:47 AM EDT [facility] % Imm Grans 0.40 0.01 - 0.43 % 06/29/2025 10:47 AM EDT [facility] # IG <0.03 0.00 - 0.03 K/uL 06/29/2025 10:47 AM EDT [facility] Blood Venipuncture / Unknown 06/29/2025 10:30 AM EDT 06/29/2025 10:35 AM EDT Narrative [facility] - 06/29/2025 10:47 AM EDT When [...] MD LAB BLOOD ORDERABLES Final Resul t [facility] [address] [place] [id number] [phone] * (ABNORMAL) Glucose, Nova Meter (06/29/2025 6:06 AM EDT) Only the most recent of19 resultswithin the time period is included. [facility] POC-GLUCOSE 181(H) 70 - 110 mg/dL 06/29/2025 6:07 AM EDT [facility] Comment: In the event of poor peripheral blood flow, venous or arterial blood should be used due to the potential of erroneous results. Notified Nurse [employer]BV Rail Crew Member [id number] 06/29/2025 6:07 AM EDT [facility] Blood WHOLE BLOOD / Unknown 06/29/2025 6:06 AM EDT 06/29/2025 6:07 AM EDT Narrative [facility] - 06/29/2025 6:07 AM EDT Rail Crew Member ID is - [id number] us Mundo Díaz MD POINT OF CARE TEST ORDERABLES Fi nal Result Performing Organization Address [facility] [place]/[facility] Co de Phone Number [facility] [address] [phone] * Magnesium (06/28/2025 2:34 AM EDT) Only the most recent of3 resultswithin the time period is included. [facility] Magnesium 1.7 1.6 - 2.6 mg/dL 06/28/2025 3:14 AM EDT [facility] Blood Venipuncture / Unknown 06/28/2025 2:34 AM EDT 06/28/2025 2:50 AM EDT us Mundo Díaz MD LAB BLOOD ORDERABLES Final Resul t Performing Organization Address City/[facility]/ZIP Co de Phone Number [facility] [address] [phone] * (ABNORMAL) Comprehensive metabolic panel (06/28/2025 2:34 AM EDT) Only the most recent of5 resultswithin the time period is included. [facility] Sodium 140 136 - 145 meq/L 06/28/2025 3:14 AM EDT [facility] Potassium 4.5 3.4 - 5.1 meq/L 06/28/2025 3:14 AM [facility] Chloride 101 98 - 112 meq/L 06/28/2025 3:14 AM [facility] CO2 25 22 - 29 meq/L 06/28/2025 3:14 AM [facility] Calcium 7.9(L) 8.4 - 10.2 mg/dL 06/28/2025 3:14 AM [facility] Glucose 130(H) 74 - 100 mg/dL 06/28/2025 3:14 AM [facility] BUN 41.0(H) 9.8 - 20.1 mg/dL 06/28/2025 3:14 AM [facility] Creatinine 2.43(H) 0.57 - 1.11 mg/dL 06/28/2025 3:14 AM [facility] BUN/Creatinine 17 8 - 20 06/28/2025 3:14 AM [facility] eGFR (mL/min/1.73m2) 23(L) >=60 mL/min/1. 73m2 06/28/2025 3:14 AM [facility] Comment:ESTIMATED GFR IS NOT ACCURATE CREATININE CLEARANCE IN PREDICTING GLOMERULAR FILTRATION RATE. ESTIMATED GFR IS NOT APPLICABLE FOR DIALYSIS PATIENTS. Albumin 2.3(L) 3.5 - 5.0 g/dL 06/28/2025 3:14 AM [facility] Alkaline Phosphatase 182(H) 40 - 150 U/L 06/28/2025 3:14 AM [facility] ALT 7 <=34 U/L 06/28/2025 3:14 AM [facility] Comment: ALT2 reagent used for testing does not contain P5P supplementation and therefore may miss ALT elevations in patients with B6 deficiency. This population may be as high as 10% in the [place], with risk factors including malabsorption, drug interactions, and alcoholic hepatitis. AST 15 11 - 34 U/L 06/28/2025 3:14 AM [facility] Comment: AST2 reagent used for testing does not contain P5P supplementation and therefore may miss AST elevations in patients with B6 deficiency. This population may be as high as 10% in the [place], with risk factors including malabsorption, drug interactions, and alcoholic hepatitis. Total Bilirubin 0.7 0.2 - 1.2 mg/dL 06/28/2025 3:14 AM EDT [facility] Protein, Total 5.9(L) 6.4 - 8.3 g/dL 06/28/2025 3:14 AM EDT [facility] Globulin 3.6 2.5 - 4.1 g/dL 06/28/2025 3:14 AM EDT [facility] Anion Gap 19(H) 4 - 12 06/28/2025 3:14 AM EDT [facility] A/G Ratio 0.6(L) 0.7 - 1.9 06/28/2025 3:14 AM EDT [facility] Osmolality Calc 291.3 mOsm/kg 3:14 AM EDT [facility] Blood Venipuncture / Unknown 06/28/2025 2:34 AM EDT 06/28/2025 2:50 AM EDT Mundo Daíz MD LAB BLOOD ORDERABLES Final Resul t [facility] [address] [phone] * (ABNORMAL) Hemoglobin and hematocrit (06/27/2025 7:53 PM EDT) Only the most recent of2 resultswithin the time period is included. Hemoglobin 8.7(L) 11.2 - 15.7 GM/DL 06/27/2025 8:14 PM EDT [facility] Hematocrit 28.7(L) 34.1 - 44.9 % 06/27/2025 8:14 PM EDT [facility] Blood Venipuncture / Unknown 06/27/2025 7:53 PM EDT 06/27/2025 8:08 PM EDT us Mundo Díaz MD LAB BLOOD ORDERABLES Final Resul t [facility] [address] [phone] * Transfuse RBC (06/27/2025 2:38 PM EDT) Only the most recent of2 resultswithin the time period is included. us Mundo HULL_MODEL_IP_BLOOD TRANSFUSION OR DERABLES Final Result * (ABNORMAL) PTT Heparin Protocol (06/27/2025 10:07 AM EDT) Only the most recent of12 resultswithin the time period is included. PTT Heparin 29.7(L) 45 - 65 seconds 06/27/2025 11:08 AM EDT [facility] Blood Venipuncture / Unknown 06/27/2025 10:07 AM EDT 06/27/2025 10:43 AM EDT us Mundo Díaz MD LAB BLOOD ORDERABLES Final Resul t Performing Organization Address City/[facility]/ZIP Co de Phone Number [facility] [address] [phone] * Prepare RBC: 1 Units (06/27/2025 9:47 AM EDT) Only the most recent of2 resultswithin the time period is included. Issue Date/Time [id number] [facility] ([place] Product Identification Red Blood Cells [facility]) Product Code [id number] [facility] [place] Status Information TRANSFUSED [facility]) Unit Number [id number] [facility] [place]) Blood Type 9500 [facility] [place] Cross Match Results Compatible [facility] [place] us Mundo HULL_MODEL_IP_BLOOD BANK PRODUCT O RDERABLES Final Result [facility] ([place] [address] [place] [address] * (ABNORMAL) CBC Scan (06/27/2025 3:06 AM EDT) Only the most recent of7 resultswithin the time period is included. Platelet Estimate Decreased (A) Adequate 06/27/2025 4:48 AM EDT [facility] RBC Morphology abnormal( A) Normal 06/27/2025 4:48 AM EDT [facility] Anisocytosis 2+ 06/27/2025 4:48 AM EDT [facility] Hypochromia 1+ 06/27/2025 4:48 AM EDT [facility] Polychromasia 1+ 06/27/2025 4:48 AM EDT [facility] Macrocytes 1+ 06/27/2025 4:48 AM EDT [facility] Ovalocytes 1+ 06/27/2025 4:48 AM EDT [facility] Elliptocytes 1+ 06/27/2025 4:48 AM EDT [facility] Blood Venipuncture / Unknown 06/27/2025 3:06 AM EDT 06/27/2025 3:43 AM EDT us Mundo Díaz MD LAB BLOOD ORDERABLES Final Resul t Performing Organization Address [facility]/ZIP Co de Phone Number [facility] [address] [phone] * (ABNORMAL) Phosphorus (06/26/2025 1:18 AM EDT) Phosphorus 5.1(H) 2.5 - 4.5 mg/dL 06/26/2025 1:45 AM EDT [facility] Blood Venipuncture / Unknown 06/26/2025 1:18 AM EDT 06/26/2025 1:21 AM EDT us Mundo Díaz MD LAB BLOOD ORDERABLES Final Resul t Performing Organization Address [facility]/ZIP Co de Phone Number [facility] [address] [phone] * (ABNORMAL) Prothrombin time/INR (06/25/2025 10:26 AM EDT) Only the most recent of2 resultswithin the time period is included. Protime 12.6(H) 9.0 - 12.0 seconds 06/25/2025 12:47 PM EDT [facility] INR 1.15(H) 0.80 - 1.10 06/25/2025 12:47 PM EDT [facility] Comment: Recommended therapeutic ranges using [...] ORDERABLES Final Resul t Performing Organization Address City/[facility]/ZIP Co de Phone Number [facility] [address] [place] [address] * Type and Screen (06/25/2025 9:11 AM EDT) ABO/Rh O Positive 06/25/2025 9:20 AM EDT [facility] [place] Antibody Screen Negative 06/25/2025 9:20 AM EDT [facility] [place] HISTCHK HIST CHECK PERFORMED 06/25/2025 9:20 AM EDT [facility] [place] Blood Venipuncture / Unknown 06/25/2025 9:11 AM EDT 06/25/2025 9:20 AM EDT us Mundo Díaz MD [facility] BLOOD BANK TEST ORDERABLES F inal Result Performing Organization Address City/[facility]/ZIP Co de Phone Number [facility] ([place] [address] [place] [address] * (ABNORMAL) PT/INR, PTT (06/24/2025 9:22 PM EDT) aPTT 37.3(H) 22.0 - 32.0 seconds 06/24/2025 9:49 PM EDT [facility] Protime 12.4(H) 9.0 - 12.0 seconds 06/24/2025 9:49 PM EDT [facility] INR 1.13(H) 0.80 - 1.10 06/24/2025 9:49 PM EDT [facility] Blood Venipuncture / Unknown 06/24/2025 9:22 PM EDT 06/24/2025 9:32 PM EDT us Vlad Waters PA-C LAB BLOOD ORDERABLES Final Res ult [facility] [address] [place] [address], [facility] [phone] * XR chest 2 views (06/24/2025 2:15 [...] Rebolledo. Transcribed by Kalyan Wisdom PA-C [facility] ORDERABLE S Final Result * [...] pleural effusion. ATTENDING RADIOLOGIST: Dr. Rebolledo. PHYSICIAN OUTCOMES ANALYST: Kalyan Wisdom PA-C. TECHNIQUE: Informed consent was [...] pleural effusion. ATTENDING RADIOLOGIST: Dr. Rebolledo. PHYSICIAN OUTCOMES ANALYST: Kalyan Wisdom PA-C. TECHNIQUE: Informed consent was [...] by Kalyan Wisdom PA-C Dajuan Banuelos MD [facility] ORDERABLES Final Result * DIFFERENTIAL, BODY FLUID (06/24/2025 2:06 PM EDT) Neutrophils Fluid 13 0 - 25 % 025 5:37 PM EDT [facility] Lymphocytes Fluid 30 % 025 5:37 PM EDT [facility] Monocytes Fluid 9 0 - 65 % 5:37 PM EDT [facility] Unidentified Mononuclear Cells BF 48 0 - 0 % 06/24/2025 5:37 PM EDT [facility] Pleural Fluid STRUCTURE OF LEFT PLEURAL CAVITY / Unknown 06/24/2025 2:06 PM EDT 06/24/2025 3:50 PM EDT Dajuan Banuelos MD BODY FLUIDS AND STOOLS ORDERABLE S Final Result [facility] [address] [place] [address], [facility] [phone] * [facility] Non-Barrel Inspector Tight Cytology (06/24/2025 2:06 PM EDT) AP RESULT See Note: [facility] Comment: FINAL NON-SUPERVISOR [employer] CYTOLOGY REPORT DIAGNOSIS: A. BODY FLUID, LEFT, [...] CAVITY / Unknown 06/24/2025 2:06 PM EDT us Dajuan Banuelos MD PATHOLOGY/CYTOLOGY ORDERABLES Fi nal Result Performing Organization Address [place]/[facility] Co de Phone Number PATHOLOGY AND CYTOLOGY LABORATORY [address] * Body Fluid/CSF - Path Review (SJ) (06/24/2025 2:06 PM EDT) Pathologist [facility] Differential Comment Macrophages and blood. No malignancy seen. Manoj Cai MD 06-24-2025 06/24/2025 6:10 PM EDT [facility] Pleural Fluid STRUCTURE OF LEFT PLEURAL CAVITY / Unknown 06/24/2025 2:06 PM EDT 06/24/2025 3:50 PM EDT Dajuan Banuelos MD BODY FLUIDS AND STOOLS ORDERABLE S Final Result [facility] [address] [phone] * Glucose, body fluid (06/24/2025 2:06 PM EDT) Glucose, Body Fluid 119 See Comment mg/dL 06/24/2025 5:37 PM EDT [facility] BODY FLUID TYPE Pleural 06/24/2025 5:37 PM EDT [facility] Pleural Fluid STRUCTURE OF LEFT PLEURAL CAVITY / Unknown 06/24/2025 2:06 PM EDT 06/24/2025 3:50 PM EDT [facility] LABORATORY - 06/24/2025 5:37 PM EDT This test has been modified from the medical assistant secretary's instructions and its performance characteristics were determined [...] ORDERABLE S Final Result Performing Organization Address [facility] [place]/[facility] Co de Phone Number [facility] [address] [phone] * Body Fluid Culture + Gram Stain (06/24/2025 2:06 PM EDT) Result No growth 06/27/2025 7:33 AM EDT [facility] Gram Stain Result No organisms seen 06/27/2025 7:33 AM EDT [facility] Gram Stain Result Rare WBCs 06/27/2025 7:33 AM EDT [facility] Pleural Fluid STRUCTURE OF LEFT PLEURAL CAVITY / Unknown 06/24/2025 2:06 PM EDT 06/24/2025 3:50 PM EDT [facility]ORY - 06/27/2025 7:33 AM EDT Specimen Description: left pleural fluid us Dajuan Banuelos MD MICROBIOLOGY - GENERAL ORDERABLE S Final Result Performing Organization Address [facility] [place]/[facility]/ZIP Co de Phone Number [facility] [address] [place] [address], [facility] [phone] * Body fluid cell count with differential (06/24/2025 2:06 PM EDT) Appearance Clear Clear 06/24/2025 5:37 PM EDT [facility] Color Yellow 06/24/2025 5:37 PM EDT [facility] BODY FLUID TYPE Pleural 5:37 PM EDT [facility] Auto WBC/Nucleated Cells BF 253 /uL 06/24/2025 5:37 PM EDT [facility] Comment: Please refer to specific WBC/Nucleated Cell Count Body Fluid reference ranges below: For Pleural: 0-1000 Peritoneal: 0-1000 Pericardial:0-1000 Synovial: 0-200 Auto RBC BF 3,000 /uL 06/24/2025 5:37 PM EDT [facility] Comment: Please refer to specific RBC Cell Count Body Fluid reference ranges below: Pleural: 0-10,000 Peritoneal: 0-10,000 Pericardial:0-10,000 Synovial:0-30 Pleural Fluid STRUCTURE OF LEFT PLEURAL CAVITY / Unknown 06/24/2025 2:06 PM EDT 06/24/2025 3:50 PM EDT [facility] LAB[facility]ATORY - 06/24/2025 5:37 PM EDT There is normally no readily obtainable pleural, peritoneal and pericardial fluid, hence normal elements for these potential fluids are not defined. us Dajuan Banuelos MD BODY FLUIDS AND STOOLS ORDERABLE S Final Result [facility] [address] [phone] * Protein, body fluid (06/24/2025 2:06 PM EDT) Protein, Fluid 1.5 See Comment g/dL 06/24/2025 5:37 PM EDT [facility] BODY FLUID TYPE Pleural 06/24/2025 5:37 PM EDT [facility] Pleural Fluid STRUCTURE OF LEFT PLEURAL CAVITY / Unknown 06/24/2025 2:06 PM EDT 06/24/2025 3:50 PM EDT Narrative [facility] - 06/24/2025 5:37 PM EDT This test has been modified from the medical assistant secretary's instructions and its performance characteristics were determined [...] ORDERABLE S Final Result Performing Organization Address [facility] [place] Co de Phone Number [facility] [address] [phone] * Lactate dehydrogenase (LDH), body fluid (06/24/2025 2:06 PM EDT) LDH, Fluid 67 See Comment U/L 06/24/2025 5:37 PM EDT [facility] BODY FLUID TYPE Pleural 06/24/2025 5:37 PM EDT [facility] Pleural Fluid STRUCTURE OF LEFT PLEURAL CAVITY / Unknown 06/24/2025 2:06 PM EDT 06/24/2025 3:50 PM EDT Narrative [facility] - 06/24/2025 5:37 PM EDT This test has been modified from the medical assistant secretary's instructions and its performance characteristics were determined by the laboratory. The reference intervals and other method performance specifications are unavailable for this test. It is recommended to interpret body fluid concentrations in comparison with the corresponding serum or plasma concentrations and to integrate test results into the clinical context. Dajuan Banuelos MD BODY FLUIDS AND STOOLS ORDERABLE S Final Result Performing Organization Address [facility] [place] de Phone Number [facility] [address] [place] [address], [facility] [phone] * ECHO COMPLETE (DOPPLER / COLOR) W CONTRAST (06/24/2025 8:00 AM EDT) Anatomical Region Laterality Modality Heart Vascular Ultraso und 06/24/2025 8:38 AM EDT Narrative 06/24/2025 8:03 PM EDT TRANSTHORACIC ECHOCARDIOGRAPHY REPORT Demographics Patient Name: VIET VORA : 1970 Age: 55 year(s) Corporate ID Number: [id number] Gender Female Reconstructive Surgeon: Familia Garcia, Height: 67 inches [facility] Referring Physician: ADEBAYO TORRES Weight: 132 pounds Interpreting MINDY MCKEON MD BMI: 20.67 kg/m^2 Physician: Date of Service: 06/24/2025 Blood Pressure: 154/92 mmHg Room Number: 566 Type of Study: TTE procedure: ECHO COMPLETE (DOPPLER / COLOR) W OR WO CONTRAST. Patient Status: ALICE [facility]qu[facility] History/Tech Notes: Indication: shortness [...] 0.43 m/s E/A ratio: 2.58 m/s Volume .01 LV length: 8.52 cm ml Volume gdmlascb37.42 ml LVOT diameter: 1.7 cm Normal sized [...] Valve TR velocity: 4.33 m/s TR gradient: 75.12628 mmHg Estimated RAP: 15 mmHg RVSP: 90.15 [...] 1970 Age: 55 year(s) Corporate ID Number: [id number] Gender Female Reconstructive Surgeon: Familia Garcia, Height: 67 inches [facility] Referring Physician: ADEBAYO TORRES Weight: 132 pounds Interpreting MINDY MCKEON MD BMI: 20.67 kg/m^2 Physician: Date of Service: 06/24/2025 Blood Pressure: 154/92 mmHg Room Number: 566 Type of Study: TTE procedure: ECHO COMPLETE (DOPPLER / COLOR) W OR WO CONTRAST. Patient Status: [facility] Adequate visualization History/Tech Notes: Indication: shortness [...] 0.43 m/s E/A ratio: 2.58 m/s Volume dhwqppaag698.01 LV length: 8.52 cm ml Volume avlpvgdo52.42 ml LVOT diameter: 1.7 cm Normal sized [...] Valve TR velocity: 4.33 m/s TR gradient: 75.86594 mmHg Estimated RAP: 15 mmHg RVSP: 90.15 [...] MD CV ECHO ORDERABLES Final Result * (ABNORMAL) PROBNP (06/24/2025 6:33 AM EDT) [facility] ProBNP (pg/mL) >70,000(H) 16 - 334 pg/mL 06/24/2025 7:17 AM EDT [facility] Blood Venipuncture / Unknown 06/24/2025 6:33 AM EDT 06/24/2025 6:36 AM EDT Narrative [facility] - 06/24/2025 7:17 AM EDT As of February 07, 2025: NT-ProBNP is a new test on our [employer] Immunoassay analyzer. Please review new age and gender specific reference ranges. us Vlad Waters PA-C LAB BLOOD ORDERABLES Final Res ult [facility] [address] [phone] * Hepatitis panel, acute (06/24/2025 6:33 AM EDT) [facility] Hep A IgM Nonreactive Nonreactive 06/24/2025 11:46 AM EDT [facility] Hep B C IgM Nonreactive Nonreactive 06/24/2025 11:46 AM EDT [facility] Hepatitis B surface antigen Nonreactive Nonreactive 06/24/2025 11:46 AM EDT [facility] Hepatitis C Ab Nonreactive Nonreactive 06/24/20 11:46 AM EDT [facility] Comment: Press Operator Heavy Duty recommends confirmatory testing on all reactives and equivocals. Blood Venipuncture / Unknown 06/24/2025 6:33 AM EDT 06/24/2025 6:36 AM EDT Blaine Moreno MD LAB BLOOD ORDERABLES Final Resul t [facility] [address] [place] [address], [facility] [phone] * (ABNORMAL) High Sensitivity Troponin I (06/24/2025 6:32 AM EDT) Only the most recent of2 resultswithin the time period is included. [facility] Troponin I High Sensitivity (pg/mL) 2,424.1(H H) <=14 pg/mL 06/24/2025 7:04 AM EDT [facility] Blood Venipuncture / Unknown 06/24/2025 6:32 AM EDT 06/24/2025 6:36 AM EDT Narrative [facility] - 06/24/2025 7:04 AM EDT Applicable to [facility] only. Effective December 11 the lab will begin using a new chemistry analyzer. HsTroponin methodology, reference ranges and critical values have changed. us Vlad Waters PA-C LAB BLOOD ORDERABLES Final Res ult [facility] [address] [place] [address], [facility] [phone] * XR chest AP portable (06/23/2025 10:57 [...] Probable acute pulmonary edema pattern Authenticated and us Vlad Waters PA-C IMG DIAGNOSTIC IMAGING ORDERAB LES Final Result * ECG 12 lead (06/23/2025 10:44 PM EDT) VENTRICULAR RATE EKG/MIN 68 BPM GE MUSE ATRIAL RATE (MCT) 68 BPM GE MUSE NM Interval 140 ms GE MUSE QRS-INTERVAL (MSEC) 116 ms GE MUSE QT Interval 440 ms GE MUSE QTC Interval 467 ms GE MUSE P [place] 89 degrees GE MUSE R AXIS (MCT) 118 degrees GE MUSE T Wave [place] -57 degrees GE MUSE [place] Diagnosis Normal sinus rhythm Right axis deviation Pulmonary disease pattern ST & T wave abnormality, consider inferior ischemia Abnormal ECG When compared with ECG of 23-JUN-2025 22:43, ST no longer depressed in Inferior leads T wave inversion now evident in Inferior leads Confirmed by Mindy Mckeon ([id number]) on 06/28/2025 5:36:53 PM GE MUSE 06/23/2025 10:4 4 PM EDT 06/28/2025 5:36 PM EDT us Vlad Waters PA-C ECG ORDERABLES Final Result GE MUSE * EKG-SCANNED (06/23/2025) Narrative 06/23/2025 Ordered by an unspecified provider. us Default Scanning Provider SCAN ORDERS Final Result from Last 3 Months Insurance [id number] (Home) [address] [place] [address] GENERIC MEDICARE REPLACEMENT [place] [address] [place] [address] MEDICARE HMO Advance Directives For more information, please contact: [phone] * DNR - Limited Additional Intervention (Latest Code Status on File) Date Activated Date Inactivated Comments 06/27/2025 12:14 PM 06/29/2025 4:55 PM * Full Code Date Activated Date Inactivated Comments 06/23/2025 5:52 PM 06/27/2025 12:14 PM * Full Code Date Activated Date Inactivated Comments 06/17/2024 1:40 AM 06/21/2024 4:51 PM * Full Code Date Activated Date Inactivated Comments 06/02/2024 5:14 PM 06/06/2024 1:25 PM * Full Code Date Activated Date Inactivated Comments 04/15/2024 1:36 AM 04/16/2024 12:42 PM Care Teams Fish Cleaner Relationship Specialty Start Date End Date Osmani Becker MD [address] [place] [address] PCP - General General Internal Medicine 02/02/24 Mindy Mckeon MD [address] , [facility] [address] [place] [address] Interventional Cardiology 06/27/25
--- OUTSIDE RECORDS SUMMARY | 2025-07-22 01:27 | XMS_ITS | Encounter Summary ---
Author Organization [facility] Address [address] [place] [address] Care Team Providers Care Lay Ups Assembler Name Role Phone RosemaryRosemarie Shaenl WILSON Primary Care Provider [phone] Haydee Mccloud Unavailable Unavailable Encounter Details Date [...] a group home (including now)? No 06/03/2025 [facility] Utilities Answer Date Recorded In the [...] drink first t jacqueline in the morning (EYE-FEED PROJECT ENGINEER) to steady your nerves or [...] Description 08/20/2025 12:00 PM EST Office Visit [facility] [place] [address], [address] [place] [address] Kaiden Harvey MD [address] [place] [address] documented as of this encounter Visit Diagnoses Not on filedocumented in this encounter Additional Health Concerns Assessment Noted Time A Body Mass Index follow-up plan has been documented for the patient 06/10/2025 2:59 PM EDT documented as of this encounter Care Teams Lay Ups Assembler Relationship Specialty Start Date End Date Rosemarie Riley APRN [address] [place] [address] PCP - General 04/02/25 Haydee Mccloud Manager Party Intake Counselor 06/03/25 06/25/25 documented as of this encounter
--- OUTSIDE RECORDS SUMMARY | 2025-07-22 01:27 | XMS_ITS | Encounter Summary ---
Author Organization [facility] Address [address] [place] [address] Care Team Providers Care Projection Technician Name Role Phone RileyRosemarie beach Shanel WILSON Primary Care Provider [phone] Encounter Details Date Type Department Care Team [...] drink first t jacqueline in the morning (EYE-RAILROAD OPERATOR) to steady your nerves or to get rid of a hangover? 0 06/21/2024 CAGE Questionnaire Score 0 024 Utilities Answer Date Recorded In the past 12 months has th e [employer], gas, oil, or water company threatened to [...] Month) No 025 4:57 PM EDT Estella Bob, RN 2. Non-Specific Active Suici ludwin Thoughts (Past 1 Month) No 06/01/2025 4:57 PM EDT Ying Bob RN 6. Suicidal Behavior (Lifetime) No 4:57 PM EDT Estella Bob, RN documented as of this encounter Plan of Treatment Upcoming Encounters Date Type Department Care Team (Late st Contact Info) Description 08/20/2025 12:00 PM EST Office Visit [facility] [place] [address], [address] [place] [address] Kaiden Harvey MD [address] [place] [address] documented as of this encounter Visit Diagnoses Not on filedocumented in this encounter Additional Health Concerns Infection Onset Date Last Indicated Resolved Time COVID-19 Rule-Out 06/01/2025 06/01/2025 06/01/2025 7:59 PM EDT Assessment Noted Time A Body Mass Index follow-up plan has been documented for the patient 06/10/2025 2:59 PM EDT documented as of this encounter Care Teams Projection Technician Relationship Specialty Start Date End Date Rosemarie Riley APRN [address] [place] [address] PCP - General 04/02/25 documented as of this encounter
--- OUTSIDE RECORDS SUMMARY | 2025-07-22 01:28 | XMS_ITS | Encounter Summary ---
Author Organization [employer] ([place], [place], [place], [place], [place]) Address [address] [place] [address] Care Team Providers Care Box Turner Name Role Phone Osmani Becker MD Primary Care Provider [phone] Mindy Soto MD Unavailable Encounter Details Date Type Department Care Team (Late st Contact Info) Description 06/25/2024 Community Orders [facility] Epic[facility] Link [address] [place] [address] Rekha Dick MD [address] [place] [address] Social History Tobacco Use Types Packs/Day Years Used Date Smoking Tobacco: Every Day Cigarettes Smokeless Tobacco: Never Alcohol Use Standard Drinks/Week Comments Never 0 (1 standard drink = 0.6 oz pur e alcohol) Utilities Answer Date Recorded In the past 12 months, has t he [employer], gas, oil, or water [employer] threatened to shut off services in your [...] Do you speak a language other than Telugu at [facility]? No 06/17/2024 Do you want help with [...] on filedocumented in this encounter Care Teams Box Turner Relationship Specialty Start Date End Date Osmani Becker MD [address] [place] [phone] PCP - General General Internal Medicine 02/02/24 Mindy Soto MD [address] , [address] [address] Interventional Cardiology 06/27/25 documented as of this encounter
--- OUTSIDE RECORDS SUMMARY | 2025-07-22 01:28 | XMS_ITS | Encounter Summary ---
Author Organization [employer] ([place], [place], [place], [place], [place]) Address [address] [place] [address] Care Team Providers Care Tar And Ammonia Pump Operator Name Role Phone Osmani Becker MD Primary Care Provider [phone] Encounter Details Date Type Department Care Team (Latest Contact Info) Description 06/23/2025 Travel Social History Tobacco Use Types Packs/Day [...] have a [facility] place to live 06/23/2025 Think about the [...] Do you speak a language other than Greenlandic at [facility]? No 06/23/2025 Do you want help with [...] on filedocumented in this encounter Care Teams Tar And Ammonia Pump Operator Relationship Specialty Start Date End Date Osmani Becker MD [address] [place] [address] PCP - General General Internal Medicine 02/02/24 documented as of this encounter
--- OUTSIDE RECORDS SUMMARY | 2025-07-22 01:28 | XMS_ITS | Clinical Summary ---
Author Organization [employer] ([place], [place], [place], [place], [place]) Address [address] [place] [address] Care Team Providers Care Zigzag Machine Operator Name Role Phone Osmani Becker MD Primary Care Provider [phone] Mindy Mckeon MD Unavailable Allergies Active Allergy Reactions Criticality Noted [...] unrelieved 5min after 1st dose. 90 tablet 06/28/202025 Active ipratropium-al buteroL (DUO-NEB) 0.5 mg-3 mg(2.5 mg base)/3 mL nebulizer solution Inhale 3 mLs by nebulization every 6 (six) hours as needed for wheezing for up to 30 days. 300 mL 06/28/202024 Active hydrALAZINE (APRESOLINE) 25 MG tablet Take 3 tablets (75 mg total) by mouth 4 (four) times daily for 30 days Look-alike/So und-alike medication. 360 tablet 06/28/202024 Active aspirin 81 MG chewable tablet Take 1 tablet (81 mg total) by mouth daily for 30 days. 30 tablet 06/28/202024 Active clopidogreL (PLAVIX) 75 mg tablet Take [...] dialysis 02/02 Pancytopenia 02/03/2024 Hypertensive urgency 02/02/2024 Encounters Date Type Department Care Team Description 06/23/2025 6:27 PM EDT - 06/29/2025 3:55 PM EDT Hospital Encounter [address] Medical Telemetry Unit 1 [place] [address] Dajuan Banuelos MD Hughes, Isaac, PA-C Elbita, Omar, MD Mass of lung; Pleural effusion on right Discharge Disposition: Home or Self Care 06/23/2025 Travel from Last 3 Months Social History Tobacco Use Types Packs/Day Years [...] living situation today? I have a [facility] place to live 06/23/2025 Think [...] speak a language other than Green[place]ic at [facility]? No 06/23/2025 Do you want help with [...] Mass Index 19.99 06/23/2025 7:17 PM EDT Plan of Treatment Health Maintenance Due Date Last Done Comments CT Colonography 1969 Colonoscopy 1969 Colorectal Cancer Screening 1969 FOBT/FIT 1969 Fit-DNA (Cologuard) 1969 Sigmoidoscopy 1969 Depression Screening (12+) 1981 HIV Screening 1984 DTAP/TDAP/TD VACCINES (1 - Tdap) 1988 Pneumococcal 50+ years (1 of 2 - PCV) 1988 Pap Smear 1990 Breast Cancer Screening 2009 Lipid Panel 2014 Medicare Initial AWV [id number] 01/18/2018 Shingles Vaccine (Zoster) (1 of 2) 2019 Hemoglobin A1C 04/15/2024 COVID-19 VACCINE (1 - 2023-2 5 season) 2025 Influenza Vaccine (#1) 2025 Diabetic Eye Exam 04/12/2026 04/12/2025, , 09/03/2022, Additional history exists Tobacco Cessation Counseling and Screening (12+) 06/25/2026 06/25/2025 Hepatitis C Screening Completed 06/24/2025 , 06/03/2024, 04/16/2024 Procedures Procedure Name Priority Date/Time Associated Diagnosis Comments CBC W/ AUTO DIFF STAT 06/29/2025 10:3 0 AM EDT NOVA GLUCOSE POC Routine 06/29/2025 6:06 AM EDT NOVA GLUCOSE POC Routine 06/28/2025 7:58 PM EDT NOVA GLUCOSE POC Routine 06/28/2025 6:50 PM EDT NOVA GLUCOSE POC Routine 06/28/2025 11:2 0 AM EDT [facility]_MODEL_HEMODIAL YSIS INPATIENT Routine 06/28/2025 9:35 AM EDT [...] GLUCOSE POC Routine 06/27/2025 5:14 AM EDT [facility] CBC SCAN Routine 06/27/2025 3:06 AM EDT MAGNESIUM Routine 06/27/2025 3:06 AM EDT COMPREHENSIVE METABOLIC PANEL Routine 06/27/2025 3:06 AM EDT CBC W/ AUTO DIFF Routine 06/27/2025 3:06 AM EDT PTT HEPARIN PROTOCOL Routine 06/26/2025 11:57 PM EDT NOVA GLUCOSE POC Routine 06/26/2025 8:12 PM EDT PTT HEPARIN PROTOCOL Routine 06/26/2025 6:24 PM EDT NOVA GLUCOSE POC Routine 06/26/2025 10:5 6 AM EDT [facility] CBC SCAN Routine 06/26/2025 8:11 AM EDT CBC W/ AUTO DIFF Routine 06/26/2025 8:11 AM EDT PTT HEPARIN PROTOCOL Routine 06/26/2025 8:11 AM EDT NOVA GLUCOSE POC Routine 06/26/2025 5:09 AM EDT [facility] CBC SCAN Routine 06/26/2025 1:18 AM EDT [...] HEPARIN PROTOCOL Routine 06/25/2025 7:47 AM EDT [facility] CBC SCAN Routine 06/25/2025 7:46 AM EDT CBC W/ AUTO DIFF Routine 06/25/2025 7:46 AM EDT NOVA GLUCOSE POC Routine 06/25/2025 4:59 AM EDT [facility] CBC SCAN Routine 06/24/2025 9:22 PM EDT PT/INR, PTT STAT 06/24/2025 9:22 PM EDT CBC W/ AUTO DIFF STAT 06/24/2025 9:22 PM EDT PTT HEPARIN PROTOCOL Routine 06/24/2025 9:22 PM EDT NOVA GLUCOSE POC Routine 06/24/2025 8:40 PM EDT XR CHEST PA AND LATERAL STAT 06/24/2025 2:15 PM EDT US THORACENTESIS LT Routine 06/24/2025 2 :09 PM EDT CYTOLOGY (H) AP Routine 06/24/2025 2:06 PM EDT Mass [...] METABOLIC PANEL Routine 06/24/2025 6:33 AM EDT [facility] CBC SCAN Routine 06/24/2025 6:32 AM EDT [...] FS_MODEL_IP_ECG 12-LEAD STAT 06/23/2025 10:44 PM EDT [facility] CBC SCAN Routine 06/23/2025 8:26 PM EDT [...] 10.0 K/ L 06/29/2025 10:[address] [facility] RBC 3.10(L) 3.93 - 5.22 M/ L 06/29/2025 10:[address] [facility] Hemoglobin 8.8(L) 11.2 - 15.7 GM/DL 06/29/2025 10:[address] [facility] Hematocrit 29.2(L) 34.1 - 44.9 % 06/29/2025 10:[address] [facility] MCV 94 79 - 95 fL 06/29/2025 10:[address] [facility] MCH 28.4 25.6 - 32.2 pg 06/29/2025 10:[address] [facility] MCHC 30.1(L) 32.2 - 35.5 GM/DL 06/29/2025 10:[address] [facility] RDW 18.5(H) 11.7 - 14.4 % 06/29/2025 10:[address] [facility] Platelets 51(L) 140 - 375 K/CU MM 06/29/2025 10:[address] [facility] MPV 11.1 9.4 - 12.3 fL 06/29/2025 10:[address] [facility] % Neutros 72(H) 34 - 71 % 06/29/2025 10:[address] [facility] % Lymphs 16(L) 19 - 52 % 06/29/2025 10:[address] [facility] % Monos 7 5 - 13 % 06/29/2025 10:[address] [facility] % Eos 4 1 - 6 % 06/29/2025 10:[address] [facility] % Baso 1 0 - 1 % 06/29/2025 10:[address] [facility] NRBC Absolute <0.01 0 - 0.012 K/ul 06/29/2025 10:[address] [facility] # Neutros 3.78 1.56 - 6.13 K/ L 06/29/2025 10:[address] [facility] # Lymphs 0.81(L) 1.18 - 3.74 K/ L 06/29/2025 10:[address] [facility] # Monos 0.37 0.24 - 0.86 K/ L 06/29/2025 10:[address] [facility] # Eos 0.22 0.04 - 0.36 K/ L 06/29/2025 10:[address] [facility] # Baso 0.04 0.01 - 0.08 K/ L 06/29/2025 10:[address] [facility] % Imm Grans 0.40 0.01 - 0.43 % 06/29/2025 10:[address] [facility] # IG <0.03 0.00 - 0.03 K/uL 06/29/2025 10:[address] [facility] Blood Venipuncture / Unknown 06/29/2025 10:30 AM EDT 06/29/2025 10:[address] [facility] - 06/29/2025 10:47 AM EDT [...] MD LAB BLOOD ORDERABLES Final Resul t [facility] 1 [place], [place] [address] [phone] * (ABNORMAL) Glucose, Nova Meter (06/29/2025 6:06 AM EDT) Only the most recent of19 resultswithin the time period is included. Pathologist [facility] POC-GLUCOSE 181(H) 70 - 110 mg/dL 06/29/2025 6:[address] [facility] Comment: In the event of poor peripheral blood flow, venous or arterial blood should be used due to the potential of erroneous results. Notified Nurse RBV Can Filler [phone] 06/29/2025 6:[address] [facility] Blood WHOLE BLOOD / Unknown 06/29/2025 6:06 AM EDT 06/29/2025 6:[address] [facility] - 06/29/2025 6:07 AM EDT Can Filler ID is - [id number] us Mundo Díaz MD POINT OF CARE TEST ORDERABLES Fi nal Result Performing Organization Address [facility] Co de Phone Number [facility] [address] [phone] * Magnesium (06/28/2025 2:34 AM EDT) Only the most recent of3 resultswithin the time period is included. [facility] Magnesium 1.7 1.6 - 2.6 mg/dL 06/28/2025 3:[address] [facility] Blood Venipuncture / Unknown 06/28/2025 2:34 AM EDT 06/28/2025 2:50 AM EDT us Mundo Díaz MD LAB BLOOD ORDERABLES Final Resul t Performing Organization Address [facility]/ZIP Co de Phone Number [facility] [address] [phone] * (ABNORMAL) Comprehensive metabolic panel (06/28/2025 2:34 AM EDT) Only the most recent of5 resultswithin the time period is included. [facility] Sodium 140 136 - 145 meq/L 06/28/2025 3:[address] [facility] Potassium 4.5 3.4 - 5.1 meq/L 06/28/2025 3:14 AM [facility] Chloride 101 98 - 112 meq/L 06/28/2025 3:14 AM [facility] CO2 25 22 - 29 meq/L 06/28/2025 3:14 AM [facility] Calcium 7.9(L) 8.4 - 10.2 mg/dL 06/28/2025 3:14 AM [facility] Glucose 130(H) 74 - 100 mg/dL 06/28/2025 3:14 AM [facility] BUN 41.0(H) 9.8 - 20.1 mg/dL 06/28/2025 3:14 AM [facility] Creatinine 2.43(H) 0.57 - 1.11 mg/dL 06/28/2025 3:14 AM [facility] BUN/Creatinine 17 8 - 20 06/28/2025 3:14 AM [facility] eGFR (mL/min/1.73m2) 23(L) >=60 mL/min/1. 73m2 06/28/2025 3:14 AM [facility] Comment:ESTIMATED GFR IS NOT ACCURATE CREATININE CLEARANCE IN PREDICTING GLOMERULAR FILTRATION RATE. ESTIMATED GFR IS NOT APPLICABLE FOR DIALYSIS PATIENTS. Albumin 2.3(L) 3.5 - 5.0 g/dL 06/28/2025 3:14 AM [facility] Alkaline Phosphatase 182(H) 40 - 150 U/L 06/28/2025 3:14 AM [facility] ALT 7 <=34 U/L 06/28/2025 3:14 AM [facility] Comment: ALT2 reagent used for testing does not contain P5P supplementation and therefore may miss ALT elevations in patients with B6 deficiency. This population may be as high as 10% in the [place], with risk factors including malabsorption, drug interactions, and alcoholic hepatitis. AST 15 11 - 34 U/L 06/28/2025 3:14 AM [facility] Comment: AST2 reagent used for testing does not contain P5P supplementation and therefore may miss AST elevations in patients with B6 deficiency. This population may be as high as 10% in the [place], with risk factors including malabsorption, drug interactions, and alcoholic hepatitis. Total Bilirubin 0.7 0.2 - 1.2 mg/dL 06/28/2025 3:[address] [facility] Protein, Total 5.9(L) 6.4 - 8.3 g/dL 06/28/2025 3:[address] [facility] Globulin 3.6 2.5 - 4.1 g/dL 06/28/2025 3:[address] [facility] Anion Gap 19(H) 4 - 12 06/28/2025 3:[address] [facility] A/G Ratio 0.6(L) 0.7 - 1.9 06/28/2025 3:[address] [facility] Osmolality Calc 291.3 mOsm/kg 3:[address] [facility] Blood Venipuncture / Unknown 06/28/2025 2:34 AM EDT 06/28/2025 2:50 AM EDT Mundo Díaz MD LAB BLOOD ORDERABLES Final Resul t Performing Organization Address City/[facility]/ZIP Co de Phone Number [facility] [address] [phone] * (ABNORMAL) Hemoglobin and hematocrit (06/27/2025 7:53 PM EDT) Only the most recent of2 resultswithin the time period is included. Hemoglobin 8.7(L) 11.2 - 15.7 GM/DL 06/27/2025 8:[address] [facility] Hematocrit 28.7(L) 34.1 - 44.9 % 06/27/2025 8:[address] [facility] Blood Venipuncture / Unknown 06/27/2025 7:53 PM EDT 06/27/2025 8:08 PM EDT us Mundo Díaz MD LAB BLOOD ORDERABLES Final Resul t Performing Organization Address City/[facility]/ZIP Co de Phone Number [facility] [address] [phone] * Transfuse RBC (06/27/2025 2:38 PM EDT) Only the most recent of2 resultswithin the time period is included. us Mundo Díaz MD FS_MODEL_IP_BLOOD TRANSFUSION OR DERABLES Final Result * (ABNORMAL) PTT Heparin Protocol (06/27/2025 10:07 AM EDT) Only the most recent of12 resultswithin the time period is included. PTT Heparin 29.7(L) 45 - 65 seconds 06/27/2025 11:[address] [facility] Blood Venipuncture / Unknown 06/27/2025 10:07 AM EDT 06/27/2025 10:43 AM EDT us Mundo Díaz MD LAB BLOOD ORDERABLES Final Resul t Performing Organization Address City/[facility] Co de Phone Number [facility] [address] [phone] * Prepare RBC: 1 Units (06/27/2025 9:47 AM EDT) Only the most recent of2 resultswithin the time period is included. Issue Date/Time [id number] [facility] (MD) Product Identification Red Blood Cells [facility]) Product Code [id number] [facility] (MD) Status Information TRANSFUSED [facility]) Unit Number [id number] [facility] (MD) Blood Type 9500 [facility] (MD) Cross Match Results Compatible [facility] (MD) us Mundo HULL_MODEL_IP_BLOOD BANK PRODUCT O RDERABLES Final Result Performing Organization Address City/[facility]/ZIP Co de Phone Number [facility] (MD) [address] [phone] * (ABNORMAL) CBC Scan (06/27/2025 3:06 AM EDT) Only the most recent of7 resultswithin the time period is included. Platelet Estimate Decreased (A) Adequate 06/27/2025 4:[address] [facility] RBC Morphology abnormal( A) Normal 06/27/2025 4:[address] [facility] Anisocytosis 2+ 06/27/2025 4:[address] [facility] Hypochromia 1+ 06/27/2025 4:[address] [facility] Polychromasia 1+ 06/27/2025 4:[address] [facility] Macrocytes 1+ 06/27/2025 4:[address] [facility] Ovalocytes 1+ 06/27/2025 4:[address] [facility] Elliptocytes 1+ 06/27/2025 4:[address] [facility] Blood Venipuncture / Unknown 06/27/2025 3:06 AM EDT 06/27/2025 3:43 AM EDT us Mundo Díaz MD LAB BLOOD ORDERABLES Final Resul t Performing Organization Address City/[facility]/ZIP Co de Phone Number [facility] [address] [phone] * (ABNORMAL) Phosphorus (06/26/2025 1:18 AM EDT) Phosphorus 5.1(H) 2.5 - 4.5 mg/dL 06/26/2025 1:[address] [facility] Blood Venipuncture / Unknown 06/26/2025 1:18 AM EDT 06/26/2025 1:21 AM EDT us Mundo Díaz MD LAB BLOOD ORDERABLES Final Resul t Performing Organization Address City/[facility]/ZIP Co de Phone Number [facility] [address] [phone] * (ABNORMAL) Prothrombin time/INR (06/25/2025 10:26 AM EDT) Only the most recent of2 resultswithin the time period is included. Protime 12.6(H) 9.0 - 12.0 seconds 06/25/2025 12:[address] [facility] INR 1.15(H) 0.80 - 1.10 06/25/2025 12:[address] [facility] Comment: Recommended therapeutic ranges using [...] ORDERABLES Final Resul t Performing Organization Address [facility]/ZIP Co de Phone Number [facility] [address] [phone] * Type and Screen (06/25/2025 9:11 AM EDT) ABO/Rh O Positive 06/25/2025 9:[address] [facility] (MD) Antibody Screen Negative 06/25/2025 9:[address] [facility] (MD) HISTCHK HIST CHECK PERFORMED 06/25/2025 9:[address] [facility] (MD) Blood Venipuncture / Unknown 06/25/2025 9:11 AM EDT 06/25/2025 9:20 AM EDT us Mundo Díaz MD [facility] TEST ORDERABLES F inal Result Performing Organization Address [facility] Co de Phone Number [facility] (MD) [address] [place] [address] * (ABNORMAL) PT/INR, PTT (06/24/2025 9:22 PM EDT) aPTT 37.3(H) 22.0 - 32.0 seconds 06/24/2025 9:[address] [facility] Protime 12.4(H) 9.0 - 12.0 seconds 06/24/2025 9:[address] [facility] INR 1.13(H) 0.80 - 1.10 06/24/2025 9:[address] [facility] Blood Venipuncture / Unknown 06/24/2025 9:22 PM EDT 06/24/2025 9:32 PM EDT us Vlad Waters PA-C LAB BLOOD ORDERABLES Final Res ult [facility] [address] [phone] * XR chest 2 views (06/24/2025 2:15 [...] pleural effusion. ATTENDING RADIOLOGIST: Dr. Rebolledo. PHYSICIAN PEANUT SHELLER: Kalyan Wisdom PA-C. TECHNIQUE: Informed consent was [...] pleural effusion. ATTENDING RADIOLOGIST: Dr. Rebolledo. PHYSICIAN PEANUT SHELLER: Kalyan Wisdom PA-C. TECHNIQUE: Informed consent was [...] by Kalyan Wisdom PA-C Dajuan Banuelos MD [facility] [place] ORDERABLES Final Result * DIFFERENTIAL, BODY FLUID (06/24/2025 2:06 PM EDT) Neutrophils Fluid 13 0 - 25 % 025 5:[address] [facility] Lymphocytes Fluid 30 % 025 5:[address] [facility] Monocytes Fluid 9 0 - 65 % 5:[address] [facility] Unidentified Mononuclear Cells BF 48 0 - 0 % 06/24/2025 5:[address] [facility] Pleural Fluid STRUCTURE OF LEFT PLEURAL CAVITY / Unknown 06/24/2025 2:06 PM EDT 06/24/2025 3:50 PM EDT Dajuan Banuelos MD BODY FLUIDS AND STOOLS ORDERABLE S Final Result [facility] [address] [place] [address], [facility] [phone] * [facility] Non-Cardiac Cath Lab Manager Cytology (06/24/2025 2:06 PM EDT) AP RESULT See Note: PATHOLOGY AND CYTOLOGY LABORATORY Comment: FINAL NON-WET PROCESS MILLER HEAD ASSISTANT CYTOLOGY REPORT DIAGNOSIS: A. BODY FLUID, LEFT, [...] ORDERABLES Fi nal Result Performing Organization Address [facility]/ZIP Co de Phone Number [facility]Y [facility]Y LAB[facility]ATORY [address] * Body Fluid/CSF - Path Review () (06/24/2025 2:06 PM EDT) Pathologist [facility] Differential Comment Macrophages and blood. No malignancy seen. Manoj Cai MD 06-24-2025 06/24/2025 6:[address] [facility] Pleural Fluid STRUCTURE OF LEFT PLEURAL CAVITY / Unknown 06/24/2025 2:06 PM EDT 06/24/2025 3:50 PM EDT Dajuan Banuelos MD BODY FLUIDS AND STOOLS ORDERABLE S Final Result Performing Organization Address [facility]/ZIP Co de Phone Number [facility] [address] [phone] * Glucose, body fluid (06/24/2025 2:06 PM EDT) Glucose, Body Fluid 119 See Comment mg/dL 06/24/2025 5:[address] [facility] BODY FLUID TYPE Pleural 06/24/2025 5:[address] [facility] Pleural Fluid STRUCTURE OF LEFT PLEURAL CAVITY / Unknown 06/24/2025 2:06 PM EDT 06/24/2025 3:[address] [facility] - 06/24/2025 5:37 PM EDT This test has been modified from the block splitter operator's instructions and its performance characteristics were determined [...] ORDERABLE S Final Result Performing Organization Address [facility] Co de Phone Number [facility] [address] [phone] * Body Fluid Culture + Gram Stain (06/24/2025 2:06 PM EDT) Result No growth 06/27/2025 7:[address] [facility] Gram Stain Result No organisms seen 06/27/2025 7:[address] [facility] Gram Stain Result Rare WBCs 06/27/2025 7:[address] [facility] Pleural Fluid STRUCTURE OF LEFT PLEURAL CAVITY / Unknown 06/24/2025 2:06 PM EDT 06/24/2025 3:[address] [facility] - 06/27/2025 7:33 AM EDT Specimen Description: left pleural fluid us Dajuan Banuelos MD MICROBIOLOGY - GENERAL ORDERABLE S Final Result Performing Organization Address [facility]/ZIP Co de Phone Number [facility] [address] [phone] * Body fluid cell count with differential (06/24/2025 2:06 PM EDT) Appearance Clear Clear 06/24/2025 5:[address] [facility] Color Yellow 06/24/2025 5:[address] [facility] BODY FLUID TYPE Pleural 5:[address] [facility] Auto WBC/Nucleated Cells BF 253 /uL 06/24/2025 5:[address] [facility] Comment: Please refer to specific WBC/Nucleated Cell Count Body Fluid reference ranges below: For Pleural: 0-1000 Peritoneal: 0-1000 Pericardial:0-1000 Synovial: 0-200 Auto RBC BF 3,000 /uL 06/24/2025 5:[address] [facility] Comment: Please refer to specific RBC Cell Count Body Fluid reference ranges below: Pleural: 0-10,000 Peritoneal: 0-10,000 Pericardial:0-10,000 Synovial:0-30 Pleural Fluid STRUCTURE OF LEFT PLEURAL CAVITY / Unknown 06/24/2025 2:06 PM EDT 06/24/2025 3:[address] [facility] - 06/24/2025 5:37 PM EDT There is normally no readily obtainable pleural, peritoneal and pericardial fluid, hence normal elements for these potential fluids are not defined. us Dajuan Banuelos MD BODY FLUIDS AND STOOLS ORDERABLE S Final Result [facility] [address] [phone] * Protein, body fluid (06/24/2025 2:06 PM EDT) Protein, Fluid 1.5 See Comment g/dL 06/24/2025 5:[address] [facility] BODY FLUID TYPE Pleural 06/24/2025 5:[address] [facility] Pleural Fluid STRUCTURE OF LEFT PLEURAL CAVITY / Unknown 06/24/2025 2:06 PM EDT 06/24/2025 3:[address] [facility] - 06/24/2025 5:37 PM EDT This test has been modified from the block splitter operator's instructions and its performance characteristics were determined by the laboratory. The reference intervals and other method performance specifications are unavailable for this test. It is recommended to interpret body fluid concentrations in comparison with the corresponding serum or plasma concentrations and to integrate test results into the clinical context. Dajuan Banuelos MD BODY FLUIDS AND STOOLS ORDERABLE S Final Result Performing Organization Address [facility] Co de Phone Number [facility] [address] [phone] * Lactate dehydrogenase (LDH), body fluid (06/24/2025 2:06 PM EDT) LDH, Fluid 67 See Comment U/L 06/24/2025 5:[address] [facility] BODY FLUID TYPE Pleural 06/24/2025 5:[address] [facility] Pleural Fluid STRUCTURE OF LEFT PLEURAL CAVITY / Unknown 06/24/2025 2:06 PM EDT 06/24/2025 3:[address] [facility] - 06/24/2025 5:37 PM EDT This test has been modified from the block splitter operator's instructions and its performance characteristics were determined by the laboratory. The reference intervals and other method performance specifications are unavailable for this test. It is recommended to interpret body fluid concentrations in comparison with the corresponding serum or plasma concentrations and to integrate test results into the clinical context. Dajuan Banuelos MD BODY FLUIDS AND STOOLS ORDERABLE S Final Result Performing Organization Address [facility] de Phone Number [facility] [address] [phone] * ECHO COMPLETE (DOPPLER / COLOR) W CONTRAST (06/24/2025 8:00 AM EDT) Anatomical Region Laterality Modality Heart Vascular Ultraso und 06/24/2025 8:38 AM EDT Narrative 06/24/2025 8:03 PM EDT TRANSTHORACIC ECHOCARDIOGRAPHY REPORT Demographics Patient Name: VIET VORA : 1970 Age: 55 year(s) Corporate ID Number: [id number] Gender Female Supervising Producer: Familia Garcia, Height: 67 inches [facility] Referring Physician: ADEBAYO TORRES Weight: 132 pounds Interpreting MINDY MCKEON MD BMI: 20.67 kg/m^2 Physician: Date of Service: 06/24/2025 Blood Pressure: 154/92 mmHg Room Number: 566 Type of Study: TTE procedure: ECHO COMPLETE (DOPPLER / COLOR) W OR WO CONTRAST. Patient Status: ALICE [facility]qu[facility] History/Tech Notes: Indication: [...] 0.43 m/s E/A ratio: 2.58 m/s Volume [id number] LV length: 8.52 cm ml Volume .42 [...] Valve TR velocity: 4.33 m/s TR gradient: 75.21818 mmHg Estimated RAP: 15 mmHg RVSP: 90.15 [...] 1970 Age: 55 year(s) Corporate ID Number: [id number] Gender Female Supervising Producer: Familia Jose, Height: 67 inches [facility] Referring Physician: ADEBAYO TORRES Weight: 132 pounds Interpreting MINDY MCKEON MD BMI: 20.67 kg/m^2 Physician: Date of Service: 06/24/2025 Blood Pressure: 154/92 mmHg Room Number: 566 Type of Study: TTE procedure: ECHO COMPLETE (DOPPLER / COLOR) W OR WO CONTRAST. Patient Status: [facility] Study Location: [facility] Quality: Adequate visualization History/Tech Notes: Indication: shortness [...] 0.43 m/s E/A ratio: 2.58 m/s Volume [id number] LV length: 8.52 cm ml Volume gijxwiiw75.42 ml LVOT diameter: 1.7 cm Normal sized [...] Valve TR velocity: 4.33 m/s TR gradient: 75.57059 mmHg Estimated RAP: 15 mmHg RVSP: 90.15 [...] * (ABNORMAL) PROBNP (06/24/2025 6:33 AM EDT) [facility] ProBNP (pg/mL) >70,000(H) 16 - 334 pg/mL 06/24/2025 7:[address] [facility] Blood Venipuncture / Unknown 06/24/2025 6:33 AM EDT 06/24/2025 6:[address] [facility] - 06/24/2025 7:17 AM EDT As of February 07, 2025: NT-ProBNP is a new test on our [employer] Alinity Immunoassay analyzer. Please review new age and gender specific reference ranges. us Vlad Waters PA-C LAB BLOOD ORDERABLES Final Res ult [facility] [address] [phone] * Hepatitis panel, acute (06/24/2025 6:33 AM EDT) [facility] Hep A IgM Nonreactive Nonreactive 06/24/2025 11:[address] [facility] Hep B C IgM Nonreactive Nonreactive 06/24/2025 11:[address] [facility] Hepatitis B surface antigen Nonreactive Nonreactive 06/24/2025 11:[address] [facility] Hepatitis C Ab Nonreactive Nonreactive 06/24/20 11:[address] [facility] Comment: Patient Relations Director recommends confirmatory testing on all reactives and equivocals. Blood Venipuncture / Unknown 06/24/2025 6:33 AM EDT 06/24/2025 6:36 AM EDT us Blaine Moreno MD LAB BLOOD ORDERABLES Final Resul t Performing Organization Address [facility]/State/ZIP Co de Phone Number [facility] [address] [phone] * (ABNORMAL) High Sensitivity Troponin I (06/24/2025 6:32 AM EDT) Only the most recent of2 resultswithin the time period is included. [facility] Troponin I High Sensitivity (pg/mL) 2,424.1(H H) <=14 pg/mL 06/24/2025 7:[address] [facility] Blood Venipuncture / Unknown 06/24/2025 6:32 AM EDT 06/24/2025 6:[address] [facility] - 06/24/2025 7:04 AM EDT Applicable to [facility] only. Effective December 11 the lab will begin using a new chemistry analyzer. HsTroponin methodology, reference ranges and critical values have changed. us Vlad Waters PA-C LAB BLOOD ORDERABLES Final Res ult [facility] [address] [phone] * XR chest AP portable (06/23/2025 10:57 [...] ATRIAL RATE (MCT) 68 BPM GE MUSE NC Interval 140 ms GE MUSE QRS-INTERVAL (MSEC) 116 ms GE MUSE QT Interval 440 ms GE MUSE QTC Interval 467 ms GE MUSE P [place] 89 degrees GE MUSE R AXIS (MCT) 118 degrees GE MUSE T Wave [place] -57 degrees GE MUSE [place] Diagnosis Normal sinus rhythm Right axis deviation [...] Final Result from Last 3 Months Insurance [id number] (Home) [address] [place] [address] GENERIC MEDICARE REPLACEMENT [place]IC[place] [address] MEDICARE HMO Advance Directives For more information, please contact: [phone] * DNR - Limited Additional Intervention (Latest [...] 1:36 AM 04/16/2024 12:42 PM Care Teams Zigzag Machine Operator Relationship Specialty Start Date End Date Osmani Becker MD [address] [place] [address] PCP - General General Internal Medicine 02/02/24 Mindy Mckeon MD [address] [facility] [address] [place] [phone] Interventional Cardiology 06/27/25
--- NOTE | 2025-07-22 01:29 | ECG_ITS ---
APPROVED REPORT Exam: Resting ECG HR:93 bpm ECG Measurements Heart Rate 93 AXES MS 191 P 8 QRSd 160 QRS 171 QT 473 T 130 QTc 523 Conclusion SINUS RHYTHM WITH FREQUENT VENTRICULAR PREMATURE COMPLEXES RIGHT ATRIAL ENLARGEMENT [0.3mV P-WAVE] INTRAVENTRICULAR CONDUCTION DELAY [130+ ms QRS DURATION] POSSIBLE LEFT VENTRICULAR HYPERTROPHY [VOLTAGE CRITERIA PLUS LAE OR QRS WIDENING] Significant artifact complicates interpretation, unable to interpret V1, V2, V5, aVL, or aVR. No STEMI in the interpretable leads Electronically signed by : DARÍO GONZALEZ, 07/23/2025 05:11:25
--- NOTE | 2025-07-22 01:30 | XR_ITS ---
PROCEDURE INFORMATION: Exam: XR Chest Exam date and time: 07/22/2025 1:34 AM Age: 55 years old Clinical indication: Shortness of breath and other: Altered mental status TECHNIQUE: Imaging protocol: Radiologic exam of the chest. Views: 1 view. COMPARISON: CR XR CHEST PORTABLE 06/23/2025 12:11 PM FINDINGS: Lungs: Bilateral airspace disease in the right upper lobe and left upper lobe concerning for pneumonia. Pleural spaces: Large right pleural effusion. No pneumothorax. Heart/Mediastinum: Cardiomegaly. Midline sternotomy Bones/joints: Unremarkable. IMPRESSION: And bilateral pneumonia. Large right pleural effusion. Cardiomegaly.
--- NOTE | 2025-07-22 01:32 | CT_ITS ---
PROCEDURE INFORMATION: Exam: CT Head Without Contrast Exam date and time: 07/22/2025 2:19 AM Age: 55 years old Clinical indication: Altered mental status/memory loss TECHNIQUE: Imaging protocol: Computed tomography of the head without contrast. Radiation optimization: All CT scans at this facility use at least one of these dose optimization techniques: automated exposure control; mA and/or kV adjustment per patient size (includes targeted exams where dose is matched to clinical indication); or iterative reconstruction. COMPARISON: CT CERVICAL SPINE WO CON 05/31/2025 6:20 AM FINDINGS: Brain: Normal. No hemorrhage. Unremarkable white matter. No mass effect. Cerebral ventricles: No ventriculomegaly. Paranasal sinuses: Bilateral maxillary and ethmoidal mucoperiosteal thickening. Mastoid air cells: Visualized mastoid air cells are well aerated. Bones: Unremarkable. No acute fracture. Soft tissues: Unremarkable. IMPRESSION: 1. No acute intracranial process. 2. Maxillary and ethmoidal sinusitis.
--- OUTSIDE RECORDS SUMMARY | 2025-07-22 01:33 | XMS_ITS ---
Author Organization [facility] Jory arnold ([facility]) Address [address] [place] [id number] Care Team Providers Care Laundry Manager Name Role Phone Unavailable Unavailable Unavailable Allergies, Adverse Reactions, Alerts Allergy Name Allergy Type Status Severity Reaction(s) Onset Date Inactive Date Treating Clinician Comments Lisinopril Allergy Active Mild Allergy 2022-09 17:15: 15 Amoxicillin Allergy Active Unknown 05-27 11:50: 52 Basaglar KwikPen Allergy Active Unknown 05-27 11:50: 32 Morphine Allergy Active Unknown 05-27 11:50: 16 Medications Ordered Medication Name Filled Medication Name Start Date Stop Date Current Medication? Ordering Clinician Indication Dosage Frequency Signature (SIG) Comments Components Flucelvax Quadrivalen t [id number] 018 11:00: 44 12-18 03:59 :59 Yes [id number] Number of Repeats Allowed: Frequency: One time only calcitriol 2024-09 15:59: 58 Yes [id number] Number of Repeats Allowed: Frequency: Three times a week Mircera 2024-09 0-02 04:00: 00 Yes [id number] Number of Repeats Allowed: Frequency: UMESH dosing, every two weeks ONS [facility] 05-13 20:07: 27 Yes [id number] Number of Repeats Allowed: Frequency: Every Dialysis Treatment Venofer 8- 04:00: 00 Yes [id number] Number of Repeats Allowed: Frequency: One time a weekDosesO rdered: Maintenanc e Dose 50 Milligram Route: Intravenou s Oxygen 05-07 18:43: 48 Yes [id number] Number of Repeats Allowed: Frequency: As needed calcitriol 17 11:56: 19 Yes [id number] Number of Repeats Allowed: Frequency: Three times a week Venofer 6-05 19:59: 22 03-16 03:59 :59 No [id number] Number of Repeats Allowed: 10Frequenc y: Every Dialysis TreatmentD osesOrdere d: Loading Dose 100 Milligram Route: Intravenou s calcitriol 02-16 04:00: 00 Yes [id number] Number of Repeats Allowed: Frequency: Three times a week Mircera 12-18 15:18: 02 Yes [id number] Number of Repeats Allowed: Frequency: UMESH dosing, every two weeks Lidocaine-P rilocaine 10-08 17:20: 32 Yes Number of Repeats Allowed: Frequency: [facility]: 50 Yes [id number] Number of Repeats Allowed: Frequency: One time a weekDosesO rdered: Maintenanc e Dose 50 Milligram Route: Intravenou s ONS [facility] 2023-09 04:00: 00 Yes [id number] Number of Repeats Allowed: Frequency: Every Dialysis Treatment ondansetron hydrochlori de 2023-09 20:43: 38 Yes [id number] Number of Repeats Allowed: Frequency: Every 4 hours as needed Nitrostat 2023-09 20:43: 24 Yes [id number] Number of Repeats Allowed: Frequency: Every 5 minutes as needed loperamide hydrochlori de 2023-09 20:43: 13 Yes [id number] Number of Repeats Allowed: Frequency: Every 4 hours as needed Insta-Gluco se 2023-09 20:43: 01 Yes [id number] Number of Repeats Allowed: Frequency: Every 30 minutes as needed diphenhydra mine hydrochlori de 2023-09 20:42: 50 Yes [id number] Number of Repeats Allowed: Frequency: Every 30 minutes as needed diphenhydra mine hydrochlori de 2023-09 20:42: 36 Yes [id number] Number of Repeats Allowed: Frequency: Every 4 hours as needed clonidine 2023-09 0 20:42: 19 Yes [id number] Number of Repeats Allowed: Frequency: Every 4 hours as needed Antacid Extra Strength 2023-09 20:42: 07 Yes [id number] Number of Repeats Allowed: Frequency: Every 4 hours as needed acetaminoph en 2023-09 20:41: 56 Yes [id number] Number of Repeats Allowed: Frequency: Every 4 hours as needed Problems This patient has no known problems. Procedures Procedure Date / Time Performed Performing Clinician Paty ce Details AV Fistula 2021-01-17 04:00:00 Access Site Forearm (Left) Access Use Start Date 2021-03-18 04:00:0 0 DIALYSIS TREATMENT INFORMATION Conventional Hemodialysis Date Type Treatment Start Date Treatment End Date Pre-Treatment Vitals Post-Treatment Vitals Weight Gain BFR DFR Actual UF Dialysis Access Novem 2024 In-Ce nter Hemod ialys is Treat ment 2025-07-20 T09:58:00. 000Z 2025-07-20 T12:04:54. 000Z BP Sitting (Pre-Dialysis) 148/125 mmHg BP Sitting (Post-D ialysis ) 115/ 93 mmHg Sitting Heart Rate Pre-Dialysis 46 BPM Sitting H eart Rate Post-Dialysis 60 BPM Temperature Pre-Dialysis 96.7 degF July 18, 2025 In-Center Hemodialysis Treatment 4823-78-38L87:44:00.000Z 4254-45-39U60:21:37.000Z BP Sitting (Pre-Dialysis) 143/71 mmHg BP Sitting (Post-Dialysis) 120/89 mmHg Concurrent Access: falseAV Fistula Forearm (Left) Arterial Sitting Heart Rate Pre-Dialysis 62 BPM Sitting H eart Rate Post-Dialysis 68 BPM Temperature Pre-Dialysis 98 degF Temperature Post -Dialysis 97.9 degF July 16, 2025 In-Center Hemodialysis Treatment 9719-72-55B39:00:00.000Z 5356-43-63Y39:56:36.000Z BP Sitting (Pre-Dialysis) 163/74 mmHg BP Sitting (Post-Dialysis) 160/66 mmHg Concurrent Access: falseAV Fistula Forearm (Left) Arterial Sitting Heart Rate Pre-Dialysis 60 BPM Sitting H eart Rate Post-Dialysis 55 BPM Temperature Pre-Dialysis 98.1 degF Temperature Post -Dialysis 98.2 degF July 13, 2025 In-Center Hemodialysis Treatment 6124-81-17D60:50:00.000Z 4349-25-32M22:33:16.000Z BP Sitting (Pre-Dialysis) 191/76 mmHg BP Sitting (Post-Dialysis) 171/73 mmHg Concurrent Access: falseAV Fistula Forearm (Left) Arterial Sitting Heart Rate Pre-Dialysis 60 BPM Sitting H eart Rate Post-Dialysis 66 BPM Temperature Pre-Dialysis 98.2 degF Temperature Post -Dialysis 98.4 degF July 11, 2025 In-Center Hemodialysis Treatment 7558-94-87A60:58:00.000Z 4176-83-39L30:43:34.000Z BP Sitting (Pre-Dialysis) 178/79 mmHg BP Sitting (Post-Dialysis) 155/66 mmHg Concurrent Access: falseAV Fistula Forearm (Left) Arterial Sitting Heart Rate Pre-Dialysis 66 BPM Sitting H eart Rate Post-Dialysis 69 BPM Temperature Pre-Dialysis 98 degF Temperature Post -Dialysis 98.7 degF July 09, 2025 In-Center Hemodialysis Treatment 8061-25-82H57:03:05.000Z 7565-11-93Y49:30:56.000Z BP Sitting (Pre-Dialysis) 177/77 mmHg BP Sitting (Post-Dialysis) 170/79 mmHg Concurrent Access: falseAV Fistula Forearm (Left) Arterial Sitting Heart Rate Pre-Dialysis 62 BPM Sitting H eart Rate Post-Dialysis 61 BPM Temperature Pre-Dialysis 97.4 degF Temperature Post -Dialysis 97.8 degF July 06, 2025 In-Center Hemodialysis Treatment 3612-61-77S72:52:18.000Z 4214-20-61W74:46:20.000Z BP Sitting (Pre-Dialysis) 179/49 mmHg BP Sitting (Post-Dialysis) 121/62 mmHg Concurrent Access: falseAV Fistula Forearm (Left) Arterial Sitting Heart Rate Pre-Dialysis 60 BPM Sitting H eart Rate Post-Dialysis 60 BPM Temperature Pre-Dialysis 97.4 degF Temperature Post -Dialysis 97.6 degF July 04, 2025 In-Center Hemodialysis Treatment 9184-39-59B69:10:00.000Z 6138-74-29X17:05:27.000Z BP Sitting (Pre-Dialysis) 162/42 mmHg BP Sitting (Post-Dialysis) 144/60 mmHg Concurrent Access: falseAV Fistula Forearm (Left) Arterial Sitting Heart Rate Pre-Dialysis 62 BPM Sitting H eart Rate Post-Dialysis 60 BPM Temperature Pre-Dialysis 98 degF Temperature Post -Dialysis 97.9 degF July 02, 2025 In-Center Hemodialysis Treatment 4884-21-31U08:57:00.000Z 0055-10-23E84:39:33.000Z BP Sitting (Pre-Dialysis) 187/81 mmHg BP Sitting (Post-Dialysis) 175/54 mmHg Concurrent Access: falseAV Fistula Forearm (Left) Arterial Sitting Heart Rate Pre-Dialysis 60 BPM Sitting H eart Rate Post-Dialysis 60 BPM Temperature Pre-Dialysis 97.7 degF Temperature Post -Dialysis 97.5 degF June 24, 2025 In-Center Hemodialysis Treatment 450 mL/min 800 mL/min Concurrent Access: false June 22, 2025 In-Center Hemodialysis Treatment 20 25 -1 0- 04 T1 4: 37 :0 0. 00 0Z 20 25 -1 0- 04 T1 8: 20 :0 0. 00 0Z BP Sitting (Pre-Dial ysis) 161/81 mmHg BP Sitting (Post-Mami lysis) 143/84 mmHg Concurrent Access: falseAV Fistula Forearm (Left) Arterial Sitting Heart Rate Pre-Dialysis 69 BPM Sitting H eart Rate Post-Dialysis 68 BPM Temperature Pre-Dialysis 97.3 degF Temperature Post -Dialysis 98 degF June 19, 2025 In-Center Hemodialysis Treatment 1062-42-56Z89:00:00.000Z 2318-82-92Q95:23:47.000Z BP Sitting (Pre-Dialysis) 180/89 mmHg BP Sitting (Post-Dialysis) 152/96 mmHg Concurrent Access: falseAV Fistula Forearm (Left) Arterial Sitting Heart Rate Pre-Dialysis 55 BPM Sitting H eart Rate Post-Dialysis 60 BPM Temperature Pre-Dialysis 98.2 degF Temperature Post -Dialysis 98.2 degF June 17, 2025 In-Center Hemodialysis Treatment 9763-67-96B77:55:50.000Z 7603-02-20L20:00:20.000Z BP Sitting (Pre-Dialysis) 137/56 mmHg BP Sitting (Post-Dialysis) 179/70 mmHg Concurrent Access: falseAV Fistula Forearm (Left) Arterial Sitting Heart Rate Pre-Dialysis 47 BPM Sitting H eart Rate Post-Dialysis 52 BPM Temperature Pre-Dialysis 97.8 degF Temperature Post -Dialysis 97 degF June 15, 2025 In-Center Hemodialysis Treatment 5075-26-67S66:16:26.000Z 6051-81-84G62:29:31.000Z BP Sitting (Pre-Dialysis) 139/43 mmHg BP Sitting (Post-Dialysis) 116/97 mmHg Concurrent Access: falseAV Fistula Forearm (Left) Arterial Sitting Heart Rate Pre-Dialysis 54 BPM Sitting H eart Rate Post-Dialysis 80 BPM Temperature Pre-Dialysis 97.8 degF Temperature Post -Dialysis 98.2 degF June 12, 2025 In-Center Hemodialysis Treatment 5212-83-81S68:20:00.000Z 6684-76-45Z12:14:04.000Z BP Sitting (Pre-Dialysis) 115/48 mmHg BP Sitting (Post-Dialysis) 157/63 mmHg Concurrent Access: falseAV Fistula Forearm (Left) Arterial Sitting Heart Rate Pre-Dialysis 55 BPM Sitting H eart Rate Post-Dialysis 60 BPM Temperature Pre-Dialysis 98.1 degF Temperature Post -Dialysis 98.2 degF June 01, 2025 In-Center Hemodialysis Treatment 0880-08-04Y53:00:00.000Z 0608-09-31T77:20:00.000Z BP Sitting (Pre-Dialysis) 150/59 mmHg BP Sitting (Post-Dialysis) 148/60 mmHg Concurrent Access: falseAV Fistula Forearm (Left) Arterial Sitting Heart Rate Pre-Dialysis 51 BPM Sitting H eart Rate Post-Dialysis 55 BPM May 29, 2025 In-Center Hemodialysis Treatment 4376-97-85E96:17:00.000Z 7364-39-99Z89:46:05.000Z BP Sitting (Pre-Dialysis) 150/46 mmHg BP Sitting (Post-Dialysis) 111/84 mmHg Concurrent Access: falseAV Fistula Forearm (Left) Arterial Sitting Heart Rate Pre-Dialysis 49 BPM Sitting H eart Rate Post-Dialysis 54 BPM Temperature Pre-Dialysis 97.4 degF Temperature Post -Dialysis 97.9 degF May 27, 2025 In-Center Hemodialysis Treatment 6423-07-91L29:24:00.000Z 7154-10-58O78:38:20.000Z BP Sitting (Pre-Dialysis) 108/47 mmHg BP Sitting (Post-Dialysis) 108/64 mmHg Concurrent Access: falseAV Fistula Forearm (Left) Arterial Sitting Heart Rate Pre-Dialysis 52 BPM Sitting H eart Rate Post-Dialysis 52 BPM Temperature Pre-Dialysis 97.3 degF Temperature Post -Dialysis 98.3 degF May 24, 2025 In-Center Hemodialysis Treatment 4424-77-17T96:55:38.000Z 7162-94-65Z13:29:49.000Z BP Sitting (Pre-Dialysis) 153/55 mmHg BP Sitting (Post-Dialysis) 114/72 mmHg Concurrent Access: falseAV Fistula Forearm (Left) Arterial Sitting Heart Rate Pre-Dialysis 60 BPM Sitting H eart Rate Post-Dialysis 106 BPM Temperature Pre-Dialysis 97.3 degF Temperature Post -Dialysis 97.3 degF May 22, 2025 In-Center Hemodialysis Treatment 4970-71-79D41:36:00.000Z 5289-21-09Y31:41:13.000Z BP Sitting (Pre-Dialysis) 148/66 mmHg BP Sitting (Post-Dialysis) 178/67 mmHg Concurrent Access: falseAV Fistula Forearm (Left) Arterial Sitting Heart Rate Pre-Dialysis 60 BPM Sitting H eart Rate Post-Dialysis 60 BPM Temperature Pre-Dialysis 97.9 degF Temperature Post -Dialysis 97.9 degF 2025 In-Center Hemodialysis Treatment 9393-78-45I71:26:00.000Z 2181-79-04D61:03:42.000Z BP Sitting (Pre-Dialysis) 145/68 mmHg BP Sitting (Post-Dialysis) 106/66 mmHg Concurrent Access: falseAV Fistula Forearm (Left) Arterial Sitting Heart Rate Pre-Dialysis 60 BPM Sitting H eart Rate Post-Dialysis 80 BPM Temperature Pre-Dialysis 98.3 degF Temperature Post -Dialysis 97.6 degF May 18, 2025 In-Center Hemodialysis Treatment 8985-42-38A36:26:39.000Z 9901-10-08Z00:01:25.000Z BP Sitting (Pre-Dialysis) 114/77 mmHg BP Sitting (Post-Dialysis) 117/50 mmHg Concurrent Access: falseAV Fistula Forearm (Left) Arterial Sitting Heart Rate Pre-Dialysis 55 BPM Sitting H eart Rate Post-Dialysis 60 BPM Temperature Pre-Dialysis 97.6 degF Temperature Post -Dialysis 97.3 degF May 15, 2025 In-Center Hemodialysis Treatment 0445-80-88L75:53:21.000Z 2664-38-35T15:27:56.000Z BP Sitting (Pre-Dialysis) 187/80 mmHg BP Sitting (Post-Dialysis) 118/81 mmHg Concurrent Access: falseAV Fistula Forearm (Left) Arterial Sitting Heart Rate Pre-Dialysis 60 BPM Sitting H eart Rate Post-Dialysis 54 BPM Temperature Pre-Dialysis 97.9 degF Temperature Post -Dialysis 98.1 degF May 13, 2025 In-Center Hemodialysis Treatment 7086-96-16O20:27:00.000Z 0633-35-71K01:35:48.000Z BP Sitting (Pre-Dialysis) 141/59 mmHg BP Sitting (Post-Dialysis) 137/63 mmHg Concurrent Access: falseAV Fistula Forearm (Left) Arterial Sitting Heart Rate Pre-Dialysis 53 BPM Sitting H eart Rate Post-Dialysis 60 BPM Temperature Pre-Dialysis 98.3 degF Temperature Post -Dialysis 98.3 degF May 10, 2025 In-Center Hemodialysis Treatment 3819-98-87I02:17:38.000Z 1220-15-11G37:42:18.000Z BP Sitting (Pre-Dialysis) 191/51 mmHg BP Sitting (Post-Dialysis) 151/64 mmHg Concurrent Access: falseAV Fistula Forearm (Left) Arterial Sitting Heart Rate Pre-Dialysis 53 BPM Sitting H eart Rate Post-Dialysis 53 BPM Temperature Pre-Dialysis 97.4 degF Temperature Post -Dialysis 98.1 degF May 08, 2025 In-Center Hemodialysis Treatment 9402-09-92P43:02:00.000Z 9960-49-94Y51:37:18.000Z BP Sitting (Pre-Dialysis) 170/53 mmHg BP Sitting (Post-Dialysis) 102/62 mmHg Concurrent Access: falseAV Fistula Forearm (Left) Arterial Sitting Heart Rate Pre-Dialysis 53 BPM Sitting H eart Rate Post-Dialysis 60 BPM Temperature Pre-Dialysis 97.9 degF Temperature Post -Dialysis 97.6 degF May 03, 2025 In-Center Hemodialysis Treatment 7282-14-77W48:40:00.000Z 1057-51-10A29:46:57.000Z BP Sitting (Pre-Dialysis) 197/52 mmHg BP Sitting (Post-Dialysis) 167/48 mmHg Concurrent Access: falseAV Fistula Forearm (Left) Arterial Sitting Heart Rate Pre-Dialysis 51 BPM Sitting H eart Rate Post-Dialysis 53 BPM Temperature Pre-Dialysis 97.5 degF Temperature Post -Dialysis 97.6 degF May 01, 2025 In-Center Hemodialysis Treatment 0714-48-08L11:05:17.000Z 8657-29-82K64:06:17.000Z BP Sitting (Pre-Dialysis) 180/129 mmHg BP Sitting (Post-Dialysis) 136/54 mmHg Concurrent Access: falseAV Fistula Forearm (Left) Arterial Sitting Heart Rate Pre-Dialysis 51 BPM Sitting H eart Rate Post-Dialysis 51 BPM Temperature Pre-Dialysis 97.5 degF Temperature Post -Dialysis 97.5 degF April 29, 2025 In-Center Hemodialysis Treatment 1804-34-46F38:06:44.000Z 5285-79-77O85:42:44.000Z BP Sitting (Pre-Dialysis) 217/84 mmHg BP Sitting (Post-Dialysis) 197/70 mmHg Concurrent Access: falseAV Fistula Forearm (Left) Arterial Sitting Heart Rate Pre-Dialysis 75 BPM Sitting H eart Rate Post-Dialysis 84 BPM Temperature Pre-Dialysis 97.6 degF Temperature Post -Dialysis 97.6 degF April 26, 2025 In-Center Hemodialysis Treatment 5325-77-50H03:00:00.000Z 3137-57-78E51:42:54.000Z BP Sitting (Pre-Dialysis) 201/85 mmHg BP Sitting (Post-Dialysis) 201/79 mmHg Concurrent Access: falseAV Fistula Forearm (Left) Arterial Sitting Heart Rate Pre-Dialysis 63 BPM Sitting H eart Rate Post-Dialysis 63 BPM Temperature Pre-Dialysis 97.4 degF Temperature Post -Dialysis 97.5 degF April 17, 2025 In-Center Hemodialysis Treatment 5300-19-76D37:06:00.000Z 0692-59-38Z88:44:56.000Z BP Sitting (Pre-Dialysis) 139/43 mmHg BP Sitting (Post-Dialysis) 143/50 mmHg Concurrent Access: falseAV Fistula Forearm (Left) Arterial Sitting Heart Rate Pre-Dialysis 58 BPM Sitting H eart Rate Post-Dialysis 52 BPM Temperature Pre-Dialysis 97.4 degF Temperature Post -Dialysis 97.5 degF April 12, 2025 In-Center Hemodialysis Treatment 9396-09-48U77:05:00.000Z 6905-82-08A43:39:34.000Z BP Sitting (Pre-Dialysis) 171/53 mmHg BP Sitting (Post-Dialysis) 159/68 mmHg Concurrent Access: falseAV Fistula Forearm (Left) Arterial Sitting Heart Rate Pre-Dialysis 65 BPM Sitting H eart Rate Post-Dialysis 55 BPM Temperature Pre-Dialysis 97.4 degF Temperature Post -Dialysis 97.4 degF April 10, 2025 In-Center Hemodialysis Treatment 1859-47-31O28:10:00.000Z 1246-64-17V37:46:17.000Z BP Sitting (Pre-Dialysis) 166/46 mmHg BP Sitting (Post-Dialysis) 163/64 mmHg Concurrent Access: falseAV Fistula Forearm (Left) Arterial Sitting Heart Rate Pre-Dialysis 62 BPM Sitting H eart Rate Post-Dialysis 61 BPM Temperature Pre-Dialysis 97.5 degF Temperature Post -Dialysis 97.2 degF April 05, 2025 In-Center Hemodialysis Treatment 4870-26-64L54:40:00.000Z 4447-57-79V14:12:53.000Z BP Sitting (Pre-Dialysis) 188/81 mmHg BP Sitting (Post-Dialysis) 177/75 mmHg Concurrent Access: falseAV Fistula Forearm (Left) Arterial Sitting Heart Rate Pre-Dialysis 60 BPM Sitting H eart Rate Post-Dialysis 60 BPM Temperature Pre-Dialysis 97.5 degF Temperature Post -Dialysis 97.2 degF April 03, 2025 In-Center Hemodialysis Treatment 5619-54-22B18:55:00.000Z 4533-33-80R68:32:50.000Z BP Sitting (Pre-Dialysis) 149/40 mmHg BP Sitting (Post-Dialysis) 178/85 mmHg Concurrent Access: falseAV Fistula Forearm (Left) Arterial Sitting Heart Rate Pre-Dialysis 72 BPM Sitting H eart Rate Post-Dialysis 62 BPM Temperature Pre-Dialysis 97.2 degF Temperature Post -Dialysis 97.2 degF March 29, 2025 In-Center Hemodialysis Treatment 4642-00-86G30:50:27.000Z 1298-88-58W98:27:27.000Z BP Sitting (Pre-Dialysis) 189/79 mmHg BP Sitting (Post-Dialysis) 187/73 mmHg Concurrent Access: falseAV Fistula Forearm (Left) Arterial Sitting Heart Rate Pre-Dialysis 55 BPM Sitting H eart Rate Post-Dialysis 56 BPM Temperature Pre-Dialysis 97.2 degF Temperature Post -Dialysis 97.5 degF March 27, 2025 In-Center Hemodialysis Treatment 2901-53-44D59:47:00.000Z 7401-43-95Z33:22:52.000Z BP Sitting (Pre-Dialysis) 106/72 mmHg BP Sitting (Post-Dialysis) 155/71 mmHg Concurrent Access: falseAV Fistula Forearm (Left) Arterial Sitting Heart Rate Pre-Dialysis 55 BPM Sitting H eart Rate Post-Dialysis 53 BPM Temperature Pre-Dialysis 97.2 degF Temperature Post -Dialysis 97.2 degF March 25, 2025 In-Center Hemodialysis Treatment 3617-10-27B15:40:00.000Z 8608-78-48O20:13:25.000Z BP Sitting (Pre-Dialysis) 177/70 mmHg BP Sitting (Post-Dialysis) 121/86 mmHg Concurrent Access: falseAV Fistula Forearm (Left) Arterial Sitting Heart Rate Pre-Dialysis 58 BPM Sitting H eart Rate Post-Dialysis 78 BPM Temperature Pre-Dialysis 97.2 degF Temperature Post -Dialysis 97.2 degF March 22, 2025 In-Center Hemodialysis Treatment 2080-74-19D70:50:00.000Z 9179-43-42H36:23:36.000Z BP Sitting (Pre-Dialysis) 206/81 mmHg BP Sitting (Post-Dialysis) 168/68 mmHg Concurrent Access: falseAV Fistula Forearm (Left) Arterial Sitting Heart Rate Pre-Dialysis 60 BPM Sitting H eart Rate Post-Dialysis 57 BPM Temperature Pre-Dialysis 97.2 degF Temperature Post -Dialysis 97.2 degF March 20, 2025 In-Center Hemodialysis Treatment 8702-79-05S36:57:02.000Z 8090-58-51K37:30:03.000Z BP Sitting (Pre-Dialysis) 216/76 mmHg BP Sitting (Post-Dialysis) 120/72 mmHg Concurrent Access: falseAV Fistula Forearm (Left) Arterial Sitting Heart Rate Pre-Dialysis 58 BPM Sitting H eart Rate Post-Dialysis 57 BPM Temperature Pre-Dialysis 97.2 degF Temperature Post -Dialysis 97.5 degF March 18, 2025 In-Center Hemodialysis Treatment 7297-98-46M94:57:29.000Z 9664-57-65S06:36:29.000Z BP Sitting (Pre-Dialysis) 178/62 mmHg BP Sitting (Post-Dialysis) 134/62 mmHg Concurrent Access: falseAV Fistula Forearm (Left) Arterial Sitting Heart Rate Pre-Dialysis 58 BPM Sitting H eart Rate Post-Dialysis 59 BPM Temperature Pre-Dialysis 97.2 degF Temperature Post -Dialysis 97.2 degF March 15, 2025 In-Center Hemodialysis Treatment 8567-84-20N86:55:00.000Z 9398-23-01Q86:33:40.000Z BP Sitting (Pre-Dialysis) 187/73 mmHg BP Sitting (Post-Dialysis) 178/76 mmHg Concurrent Access: falseAV Fistula Forearm (Left) Arterial Sitting Heart Rate Pre-Dialysis 59 BPM Sitting H eart Rate Post-Dialysis 56 BPM Temperature Pre-Dialysis 97.2 degF Temperature Post -Dialysis 97.2 degF March 13, 2025 In-Center Hemodialysis Treatment 2134-35-80K70:55:00.000Z 6560-90-33O77:32:40.000Z BP Sitting (Pre-Dialysis) 191/83 mmHg BP Sitting (Post-Dialysis) 169/74 mmHg Concurrent Access: falseAV Fistula Forearm (Left) Arterial Sitting Heart Rate Pre-Dialysis 60 BPM Sitting H eart Rate Post-Dialysis 58 BPM Temperature Pre-Dialysis 97.2 degF Temperature Post -Dialysis 97.4 degF March 11, 2025 In-Center Hemodialysis Treatment 8042-63-51D29:50:00.000Z 1643-98-49J89:10:07.000Z BP Sitting (Pre-Dialysis) 187/64 mmHg BP Sitting (Post-Dialysis) 147/64 mmHg Concurrent Access: falseAV Fistula Forearm (Left) Arterial Sitting Heart Rate Pre-Dialysis 62 BPM Sitting H eart Rate Post-Dialysis 58 BPM Temperature Pre-Dialysis 97.2 degF Temperature Post -Dialysis 97.3 degF March 08, 2025 In-Center Hemodialysis Treatment 0875-78-15Q45:48:00.000Z 3321-11-90N25:10:18.000Z BP Sitting (Pre-Dialysis) 163/89 mmHg BP Sitting (Post-Dialysis) 143/62 mmHg Concurrent Access: falseAV Fistula Forearm (Left) Arterial Sitting Heart Rate Pre-Dialysis 59 BPM Sitting H eart Rate Post-Dialysis 57 BPM Temperature Pre-Dialysis 97.2 degF Temperature Post -Dialysis 97.3 degF March 06, 2025 In-Center Hemodialysis Treatment 8458-36-88M94:54:00.000Z 9728-70-01N56:16:45.000Z BP Sitting (Pre-Dialysis) 147/85 mmHg BP Sitting (Post-Dialysis) 145/37 mmHg Concurrent Access: falseAV Fistula Forearm (Left) Arterial Sitting Heart Rate Pre-Dialysis 71 BPM Sitting H eart Rate Post-Dialysis 57 BPM Temperature Pre-Dialysis 97.4 degF Temperature Post -Dialysis 97.4 degF March 04, 2025 In-Center Hemodialysis Treatment 9413-99-00H45:00:00.000Z 9225-45-09L26:22:12.000Z BP Sitting (Pre-Dialysis) 184/79 mmHg BP Sitting (Post-Dialysis) 170/73 mmHg Concurrent Access: falseAV Fistula Forearm (Left) Arterial Sitting Heart Rate Pre-Dialysis 57 BPM Sitting H eart Rate Post-Dialysis 59 BPM Temperature Pre-Dialysis 97.4 degF Temperature Post -Dialysis 97.6 degF [facility] 4611-89-27G76:50:00.000Z 0512-32-40V75:13:15.000Z BP Sitting (Pre-Dialysis) 164/74 mmHg BP Sitting (Post-Dialysis) 152/72 mmHg Concurrent Access: falseAV Fistula Forearm (Left) Arterial Sitting Heart Rate Pre-Dialysis 58 BPM Sitting H eart Rate Post-Dialysis 78 BPM Temperature Pre-Dialysis 97.4 degF Temperature Post -Dialysis 97.4 degF February 25, 2025 [facility] [facility] Treatment 7955-01-75F05:45:00.000Z 1329-20-13D28:04:42.000Z BP Sitting (Pre-Dialysis) 164/77 mmHg BP Sitting (Post-Dialysis) 156/73 mmHg Concurrent Access: falseAV Fistula Forearm (Left) Arterial Sitting Heart Rate Pre-Dialysis 55 BPM Sitting H eart Rate Post-Dialysis 51 BPM Temperature Pre-Dialysis 97.4 degF Temperature Post -Dialysis 97.4 degF February 20, 2025 In-Center Hemodialysis Treatment 1590-48-28B96:45:00.000Z 7448-97-94T25:04:21.000Z BP Sitting (Pre-Dialysis) 167/74 mmHg BP Sitting (Post-Dialysis) 133/58 mmHg Concurrent Access: falseAV Fistula Forearm (Left) Arterial Sitting Heart Rate Pre-Dialysis 59 BPM Sitting H eart Rate Post-Dialysis 62 BPM Temperature Pre-Dialysis 97.3 degF Temperature Post -Dialysis 97.4 degF February 15, 2025 In-Center Hemodialysis Treatment 0417-09-41L67:00:00.000Z 2259-02-97L33:16:57.000Z BP Sitting (Pre-Dialysis) 150/87 mmHg BP Sitting (Post-Dialysis) 147/65 mmHg Concurrent Access: falseAV Fistula Forearm (Left) Arterial Sitting Heart Rate Pre-Dialysis 62 BPM Sitting H eart Rate Post-Dialysis 62 BPM Temperature Pre-Dialysis 97.6 degF Temperature Post -Dialysis 97.5 degF February 13, 2025 In-Center Hemodialysis Treatment 9745-28-61N20:53:46.000Z 5616-80-88T38:06:46.000Z BP Sitting (Pre-Dialysis) 145/64 mmHg BP Sitting (Post-Dialysis) 130/56 mmHg Concurrent Access: falseAV Fistula Forearm (Left) Arterial Sitting Heart Rate Pre-Dialysis 74 BPM Sitting H eart Rate Post-Dialysis 65 BPM Temperature Pre-Dialysis 97.6 degF Temperature Post -Dialysis 97.6 degF February 08, 2025 In-Center Hemodialysis Treatment 2794-96-00K23:00:24.000Z 0438-09-72D01:18:24.000Z BP Sitting (Pre-Dialysis) 162/72 mmHg BP Sitting (Post-Dialysis) 140/66 mmHg Concurrent Access: falseAV Fistula Forearm (Left) Arterial Sitting Heart Rate Pre-Dialysis 59 BPM Sitting H eart Rate Post-Dialysis 57 BPM Temperature Pre-Dialysis 97.2 degF Temperature Post -Dialysis 97.6 degF February 06, 2025 In-Center Hemodialysis Treatment 7603-22-32U73:46:51.000Z 9295-36-17S11:57:51.000Z BP Sitting (Pre-Dialysis) 144/65 mmHg BP Sitting (Post-Dialysis) 98/73 mmHg Concurrent Access: falseAV Fistula Forearm (Left) Arterial Sitting Heart Rate Pre-Dialysis 61 BPM Sitting H eart Rate Post-Dialysis 58 BPM Temperature Pre-Dialysis 97.6 degF Temperature Post -Dialysis 97.6 degF February 01, 2025 In-Center Hemodialysis Treatment 2866-97-85I00:50:00.000Z 0839-44-48J53:05:00.000Z BP Sitting (Pre-Dialysis) 157/76 mmHg BP Sitting (Post-Dialysis) 153/72 mmHg Concurrent Access: falseAV Fistula Forearm (Left) Arterial Sitting Heart Rate Pre-Dialysis 65 BPM Sitting H eart Rate Post-Dialysis 60 BPM Temperature Pre-Dialysis 97.4 degF Temperature Post -Dialysis 97.3 degF January 28, 2025 In-Center Hemodialysis Treatment 1502-69-49W16:50:00.000Z 7698-93-74M89:07:42.000Z BP Sitting (Pre-Dialysis) 150/76 mmHg BP Sitting (Post-Dialysis) 150/76 mmHg Concurrent Access: falseAV Fistula Forearm (Left) Arterial Sitting Heart Rate Pre-Dialysis 62 BPM Sitting H eart Rate Post-Dialysis 60 BPM Temperature Pre-Dialysis 97.2 degF Temperature Post -Dialysis 97.2 degF January 25, 2025 In-Center Hemodialysis Treatment 1480-34-93I51:45:00.000Z 9615-37-23S94:59:37.000Z BP Sitting (Pre-Dialysis) 176/76 mmHg BP Sitting (Post-Dialysis) 131/63 mmHg Concurrent Access: falseAV Fistula Forearm (Left) Arterial Sitting Heart Rate Pre-Dialysis 61 BPM Sitting H eart Rate Post-Dialysis 60 BPM Temperature Pre-Dialysis 97.2 degF Temperature Post -Dialysis 97.7 degF January 23, 2025 In-Center Hemodialysis Treatment 6288-03-90Q61:04:00.000Z 4720-95-12E41:28:04.000Z BP Sitting (Pre-Dialysis) 156/78 mmHg BP Sitting (Post-Dialysis) 141/50 mmHg Concurrent Access: falseAV Fistula Forearm (Left) Arterial Sitting Heart Rate Pre-Dialysis 57 BPM Sitting H eart Rate Post-Dialysis 57 BPM Temperature Pre-Dialysis 97.4 degF Temperature Post -Dialysis 97.4 degF January 21, 2025 In-Center Hemodialysis Treatment 7153-39-17O42:46:00.000Z 8185-26-92B51:15:30.000Z BP Sitting (Pre-Dialysis) 179/81 mmHg BP Sitting (Post-Dialysis) 162/74 mmHg Concurrent Access: falseAV Fistula Forearm (Left) Arterial Sitting Heart Rate Pre-Dialysis 63 BPM Sitting H eart Rate Post-Dialysis 65 BPM Temperature Pre-Dialysis 97.6 degF Temperature Post -Dialysis 97.5 degF January 18, 2025 In-Center Hemodialysis Treatment 0560-92-28A63:47:00.000Z 9770-67-57N75:06:40.000Z BP Sitting (Pre-Dialysis) 160/74 mmHg BP Sitting (Post-Dialysis) 152/60 mmHg Concurrent Access: falseAV Fistula Forearm (Left) Arterial Sitting Heart Rate Pre-Dialysis 57 BPM Sitting H eart Rate Post-Dialysis 63 BPM Temperature Pre-Dialysis 97.6 degF Temperature Post -Dialysis 97.5 degF January 16, 2025 In-Center Hemodialysis Treatment 7878-28-57D32:45:00.000Z 7521-70-70X88:03:07.000Z BP Sitting (Pre-Dialysis) 145/72 mmHg BP Sitting (Post-Dialysis) 137/70 mmHg Concurrent Access: falseAV Fistula Forearm (Left) Arterial Sitting Heart Rate Pre-Dialysis 54 BPM Sitting H eart Rate Post-Dialysis 53 BPM Temperature Pre-Dialysis 97.5 degF Temperature Post -Dialysis 97.5 degF January 14, 2025 In-Center Hemodialysis Treatment 9605-04-17S38:45:00.000Z 6838-82-74L41:02:33.000Z BP Sitting (Pre-Dialysis) 151/72 mmHg BP Sitting (Post-Dialysis) 144/71 mmHg Concurrent Access: falseAV Fistula Forearm (Left) Arterial Sitting Heart Rate Pre-Dialysis 56 BPM Sitting H eart Rate Post-Dialysis 58 BPM Temperature Pre-Dialysis 97.5 degF Temperature Post -Dialysis 97.5 degF January 11, 2025 In-Center Hemodialysis Treatment 2225-03-06Q80:52:00.000Z 4698-37-41L25:08:41.000Z BP Sitting (Pre-Dialysis) 147/68 mmHg BP Sitting (Post-Dialysis) 147/76 mmHg Concurrent Access: falseAV Fistula Forearm (Left) Arterial Sitting Heart Rate Pre-Dialysis 59 BPM Sitting H eart Rate Post-Dialysis 64 BPM Temperature Pre-Dialysis 97.3 degF Temperature Post -Dialysis 97.4 degF January 09, 2025 In-Center Hemodialysis Treatment 3945-59-23E28:01:00.000Z 4270-85-64D67:16:35.000Z BP Sitting (Pre-Dialysis) 174/75 mmHg BP Sitting (Post-Dialysis) 151/70 mmHg Concurrent Access: falseAV Fistula Forearm (Left) Arterial Sitting Heart Rate Pre-Dialysis 59 BPM Sitting H eart Rate Post-Dialysis 59 BPM Temperature Pre-Dialysis 97.4 degF Temperature Post -Dialysis 97.5 degF January 07, 2025 In-Center Hemodialysis Treatment 3083-16-53K36:40:00.000Z 1495-93-43N55:58:02.000Z BP Sitting (Pre-Dialysis) 164/72 mmHg BP Sitting (Post-Dialysis) 151/69 mmHg Concurrent Access: falseAV Fistula Forearm (Left) Arterial Sitting Heart Rate Pre-Dialysis 59 BPM Sitting H eart Rate Post-Dialysis 59 BPM Temperature Pre-Dialysis 97.4 degF Temperature Post -Dialysis 97.4 degF January 04, 2025 In-Center Hemodialysis Treatment 6994-58-40U36:45:00.000Z 6453-78-19L31:03:13.000Z BP Sitting (Pre-Dialysis) 166/79 mmHg BP Sitting (Post-Dialysis) 136/41 mmHg Concurrent Access: falseAV Fistula Forearm (Left) Arterial Sitting Heart Rate Pre-Dialysis 55 BPM Sitting H eart Rate Post-Dialysis 56 BPM Temperature Pre-Dialysis 97.4 degF Temperature Post -Dialysis 97.4 degF January 02, 2025 In-Center Hemodialysis Treatment 0657-25-74F09:42:40.000Z 4455-87-02H44:31:40.000Z BP Sitting (Pre-Dialysis) 151/73 mmHg BP Sitting (Post-Dialysis) 148/68 mmHg Concurrent Access: falseAV Fistula Forearm (Left) Arterial Sitting Heart Rate Pre-Dialysis 84 BPM Sitting H eart Rate Post-Dialysis 73 BPM Temperature Pre-Dialysis 97.6 degF Temperature Post -Dialysis 97.6 degF December 31, 2024 In-Center Hemodialysis Treatment 2511-13-06P50:45:56.000Z 0033-51-80U75:58:00.000Z BP Sitting (Pre-Dialysis) 159/74 mmHg BP Sitting (Post-Dialysis) 133/58 mmHg Concurrent Access: falseAV Fistula Forearm (Left) Arterial Sitting Heart Rate Pre-Dialysis 56 BPM Sitting H eart Rate Post-Dialysis 50 BPM Temperature Pre-Dialysis 97.6 degF Temperature Post -Dialysis 97.5 degF December 28, 2024 In-Center Hemodialysis Treatment 6845-27-20Y64:43:00.000Z 2158-13-76C99:01:56.000Z BP Sitting (Pre-Dialysis) 159/72 mmHg BP Sitting (Post-Dialysis) 147/67 mmHg Concurrent Access: falseAV Fistula Forearm (Left) Arterial Sitting Heart Rate Pre-Dialysis 59 BPM Sitting H eart Rate Post-Dialysis 51 BPM Temperature Pre-Dialysis 96.9 degF Temperature Post -Dialysis 97.6 degF December 26, 2024 In-Center Hemodialysis Treatment 7475-13-43B95:57:00.000Z 2546-24-81G44:15:22.000Z BP Sitting (Pre-Dialysis) 169/73 mmHg BP Sitting (Post-Dialysis) 146/72 mmHg Concurrent Access: falseAV Fistula Forearm (Left) Arterial Sitting Heart Rate Pre-Dialysis 57 BPM Sitting H eart Rate Post-Dialysis 53 BPM Temperature Pre-Dialysis 97.6 degF Temperature Post -Dialysis 97.5 degF December 24, 2024 In-Center Hemodialysis Treatment 0737-56-64L85:56:49.000Z 0075-53-24Q87:17:49.000Z BP Sitting (Pre-Dialysis) 179/80 mmHg BP Sitting (Post-Dialysis) 143/60 mmHg Concurrent Access: falseAV Fistula Forearm (Left) Arterial Sitting Heart Rate Pre-Dialysis 60 BPM Sitting H eart Rate Post-Dialysis 52 BPM Temperature Pre-Dialysis 98.3 degF Temperature Post -Dialysis 98.2 degF December 21, 2024 In-Center Hemodialysis Treatment 7156-72-85Y68:55:00.000Z 7023-48-15R22:45:58.000Z BP Sitting (Pre-Dialysis) 149/68 mmHg BP Sitting (Post-Dialysis) 155/70 mmHg Concurrent Access: falseAV Fistula Forearm (Left) Arterial Sitting Heart Rate Pre-Dialysis 67 BPM Sitting H eart Rate Post-Dialysis 58 BPM Temperature Pre-Dialysis 97.4 degF Temperature Post -Dialysis 97.4 degF December 19, 2024 In-Center Hemodialysis Treatment 8185-62-35R87:35:25.000Z 4162-38-73O90:55:25.000Z BP Sitting (Pre-Dialysis) 167/72 mmHg BP Sitting (Post-Dialysis) 160/64 mmHg Concurrent Access: falseAV Fistula Forearm (Left) Arterial Sitting Heart Rate Pre-Dialysis 55 BPM Sitting H eart Rate Post-Dialysis 57 BPM Temperature Pre-Dialysis 97.1 degF Temperature Post -Dialysis 97.1 degF December 17, 2024 In-Center Hemodialysis Treatment 8705-76-78J66:48:00.000Z 7293-80-71C71:14:51.000Z BP Sitting (Pre-Dialysis) 143/67 mmHg BP Sitting (Post-Dialysis) 180/84 mmHg Concurrent Access: falseAV Fistula Forearm (Left) Arterial Sitting Heart Rate Pre-Dialysis 61 BPM Sitting H eart Rate Post-Dialysis 55 BPM Temperature Pre-Dialysis 97.5 degF Temperature Post -Dialysis 97.4 degF December 14, 2024 In-Center Hemodialysis Treatment 3197-00-42G51:56:00.000Z 6038-08-49G79:21:01.000Z BP Sitting (Pre-Dialysis) 158/69 mmHg BP Sitting (Post-Dialysis) 140/65 mmHg Concurrent Access: falseAV Fistula Forearm (Left) Arterial Sitting Heart Rate Pre-Dialysis 57 BPM Sitting H eart Rate Post-Dialysis 56 BPM Temperature Pre-Dialysis 97.4 degF Temperature Post -Dialysis 97.3 degF December 12, 2024 In-Center Hemodialysis Treatment 9628-90-06X67:58:48.000Z 9056-07-73T66:08:48.000Z BP Sitting (Pre-Dialysis) 159/73 mmHg BP Sitting (Post-Dialysis) 132/53 mmHg Concurrent Access: falseAV Fistula Forearm (Left) Arterial Sitting Heart Rate Pre-Dialysis 55 BPM Sitting H eart Rate Post-Dialysis 54 BPM Temperature Pre-Dialysis 97.4 degF Temperature Post -Dialysis 97.4 degF December 10, 2024 In-Center Hemodialysis Treatment 0267-96-53Q02:46:00.000Z 3705-30-42K68:05:55.000Z BP Sitting (Pre-Dialysis) 144/94 mmHg BP Sitting (Post-Dialysis) 171/79 mmHg Concurrent Access: falseAV Fistula Forearm (Left) Arterial Sitting Heart Rate Pre-Dialysis 60 BPM Sitting H eart Rate Post-Dialysis 57 BPM Temperature Pre-Dialysis 97.4 degF Temperature Post -Dialysis 97.4 degF December 07, 2024 In-Center Hemodialysis Treatment 3162-17-01P10:40:00.000Z 2585-76-34S00:58:26.000Z BP Sitting (Pre-Dialysis) 176/86 mmHg BP Sitting (Post-Dialysis) 191/92 mmHg Concurrent Access: falseAV Fistula Forearm (Left) Arterial Sitting Heart Rate Pre-Dialysis 58 BPM Sitting H eart Rate Post-Dialysis 55 BPM Temperature Pre-Dialysis 97.4 degF Temperature Post -Dialysis 97.3 degF December 05, 2024 In-Center Hemodialysis Treatment 8129-82-78O24:53:00.000Z 7855-06-52P60:28:52.000Z BP Sitting (Pre-Dialysis) 194/93 mmHg BP Sitting (Post-Dialysis) 168/75 mmHg Concurrent Access: falseAV Fistula Forearm (Left) Arterial Sitting Heart Rate Pre-Dialysis 56 BPM Sitting H eart Rate Post-Dialysis 55 BPM Temperature Pre-Dialysis 97.4 degF Temperature Post -Dialysis 97.4 degF December 03, 2024 In-Center Hemodialysis Treatment 1277-45-42O87:35:00.000Z 1069-96-91J05:53:52.000Z BP Sitting (Pre-Dialysis) 206/92 mmHg BP Sitting (Post-Dialysis) 141/81 mmHg Concurrent Access: falseAV Fistula Forearm (Left) Arterial Sitting Heart Rate Pre-Dialysis 64 BPM Sitting H eart Rate Post-Dialysis 60 BPM Temperature Pre-Dialysis 97.7 degF Temperature Post -Dialysis 97.7 degF November 30, 2024 In-Center Hemodialysis Treatment 9698-65-64P94:50:00.000Z 0210-24-36K90:35:03.000Z BP Sitting (Pre-Dialysis) 195/90 mmHg BP Sitting (Post-Dialysis) 161/81 mmHg Concurrent Access: falseAV Fistula Forearm (Left) Arterial Sitting Heart Rate Pre-Dialysis 57 BPM Sitting H eart Rate Post-Dialysis 57 BPM Temperature Pre-Dialysis 97.7 degF Temperature Post -Dialysis 97.6 degF November 28, 2024 In-Center Hemodialysis Treatment 7714-83-35C80:52:00.000Z 1170-42-21C66:14:28.000Z BP Sitting (Pre-Dialysis) 191/89 mmHg BP Sitting (Post-Dialysis) 160/78 mmHg Concurrent Access: falseAV Fistula Forearm (Left) Arterial Sitting Heart Rate Pre-Dialysis 53 BPM Sitting H eart Rate Post-Dialysis 54 BPM Temperature Pre-Dialysis 97.7 degF Temperature Post -Dialysis 97.6 degF November 26, 2024 In-Center Hemodialysis Treatment 4934-04-56C07:45:00.000Z 7176-26-00S06:10:55.000Z BP Sitting (Pre-Dialysis) 179/89 mmHg BP Sitting (Post-Dialysis) 179/82 mmHg Concurrent Access: falseAV Fistula Forearm (Left) Arterial Sitting Heart Rate Pre-Dialysis 57 BPM Sitting H eart Rate Post-Dialysis 57 BPM Temperature Pre-Dialysis 97.7 degF Temperature Post -Dialysis 97.5 degF November 23, 2024 In-Center Hemodialysis Treatment 7737-49-40B74:35:00.000Z 1626-84-62L67:52:21.000Z BP Sitting (Pre-Dialysis) 180/90 mmHg BP Sitting (Post-Dialysis) 158/75 mmHg Concurrent Access: falseAV Fistula Forearm (Left) Arterial Sitting Heart Rate Pre-Dialysis 57 BPM Sitting H eart Rate Post-Dialysis 54 BPM Temperature Pre-Dialysis 97.4 degF Temperature Post -Dialysis 97.4 degF November 21, 2024 In-Center Hemodialysis Treatment 2750-39-29E01:45:00.000Z 6172-78-81Q63:05:34.000Z BP Sitting (Pre-Dialysis) 184/87 mmHg BP Sitting (Post-Dialysis) 179/82 mmHg Concurrent Access: falseAV Fistula Forearm (Left) Arterial Sitting Heart Rate Pre-Dialysis 58 BPM Sitting H eart Rate Post-Dialysis 55 BPM Temperature Pre-Dialysis 97.4 degF Temperature Post -Dialysis 97.5 degF November 19, 2024 In-Center Hemodialysis Treatment 4826-85-74Q85:45:00.000Z 9301-10-66W12:05:01.000Z BP Sitting (Pre-Dialysis) 198/85 mmHg BP Sitting (Post-Dialysis) 145/71 mmHg Concurrent Access: falseAV Fistula Forearm (Left) Arterial Sitting Heart Rate Pre-Dialysis 58 BPM Sitting H eart Rate Post-Dialysis 54 BPM Temperature Pre-Dialysis 97.4 degF Temperature Post -Dialysis 97.5 degF November 16, 2024 In-Center Hemodialysis Treatment 8616-23-05V19:47:00.000Z 8051-38-22R89:05:48.000Z BP Sitting (Pre-Dialysis) 181/85 mmHg BP Sitting (Post-Dialysis) 154/76 mmHg Concurrent Access: falseAV Fistula Forearm (Left) Arterial Sitting Heart Rate Pre-Dialysis 59 BPM Sitting H eart Rate Post-Dialysis 57 BPM Temperature Pre-Dialysis 97.4 degF Temperature Post -Dialysis 97.4 degF November 14, 2024 In-Center Hemodialysis Treatment 8262-14-97R49:50:00.000Z 4634-42-64L52:16:14.000Z BP Sitting (Pre-Dialysis) 162/78 mmHg BP Sitting (Post-Dialysis) 158/77 mmHg Concurrent Access: falseAV Fistula Forearm (Left) Arterial Sitting Heart Rate Pre-Dialysis 59 BPM Sitting H eart Rate Post-Dialysis 54 BPM Temperature Pre-Dialysis 97.6 degF Temperature Post -Dialysis 97.6 degF November 12, 2024 In-Center Hemodialysis Treatment 8027-26-31W75:48:00.000Z 6291-58-35B25:13:39.000Z BP Sitting (Pre-Dialysis) 174/78 mmHg BP Sitting (Post-Dialysis) 180/90 mmHg Concurrent Access: falseAV Fistula Forearm (Left) Arterial Sitting Heart Rate Pre-Dialysis 57 BPM Sitting H eart Rate Post-Dialysis 56 BPM Temperature Pre-Dialysis 97.6 degF Temperature Post -Dialysis 97.5 degF November 09, 2024 In-Center Hemodialysis Treatment 3402-92-40S22:40:00.000Z 4856-51-66D12:58:46.000Z BP Sitting (Pre-Dialysis) 189/83 mmHg BP Sitting (Post-Dialysis) 187/82 mmHg Concurrent Access: falseAV Fistula Forearm (Left) Arterial Sitting Heart Rate Pre-Dialysis 59 BPM Sitting H eart Rate Post-Dialysis 63 BPM Temperature Pre-Dialysis 97.4 degF Temperature Post -Dialysis 97.4 degF November 07, 2024 In-Center Hemodialysis Treatment 5323-63-83H50:48:00.000Z 4454-42-91Y48:33:13.000Z BP Sitting (Pre-Dialysis) 169/78 mmHg BP Sitting (Post-Dialysis) 169/80 mmHg Concurrent Access: falseAV Fistula Forearm (Left) Arterial Sitting Heart Rate Pre-Dialysis 53 BPM Sitting H eart Rate Post-Dialysis 59 BPM Temperature Pre-Dialysis 97.5 degF Temperature Post -Dialysis 98.3 degF November 05, 2024 In-Center Hemodialysis Treatment 4826-86-82M10:55:00.000Z 9801-97-71M07:13:26.000Z BP Sitting (Pre-Dialysis) 176/84 mmHg BP Sitting (Post-Dialysis) 186/92 mmHg Concurrent Access: falseAV Fistula Forearm (Left) Arterial Sitting Heart Rate Pre-Dialysis 57 BPM Sitting H eart Rate Post-Dialysis 54 BPM Temperature Pre-Dialysis 97.5 degF Temperature Post -Dialysis 97 degF November 02, 2024 In-Center Hemodialysis Treatment 2200-63-60T44:45:00.000Z 4099-75-36L84:03:46.000Z BP Sitting (Pre-Dialysis) 176/79 mmHg BP Sitting (Post-Dialysis) 164/81 mmHg Concurrent Access: falseAV Fistula Forearm (Left) Arterial Sitting Heart Rate Pre-Dialysis 60 BPM Sitting H eart Rate Post-Dialysis 54 BPM Temperature Pre-Dialysis 97.6 degF Temperature Post -Dialysis 97.5 degF October 31, 2024 In-Center Hemodialysis Treatment 7914-14-38X93:41:00.000Z 3864-81-96R95:58:12.000Z BP Sitting (Pre-Dialysis) 195/76 mmHg BP Sitting (Post-Dialysis) 161/73 mmHg Concurrent Access: falseAV Fistula Forearm (Left) Arterial Sitting Heart Rate Pre-Dialysis 56 BPM Sitting H eart Rate Post-Dialysis 59 BPM Temperature Pre-Dialysis 97 degF Temperature Post -Dialysis 97 degF October 29, 2024 In-Center Hemodialysis Treatment 7503-69-42O49:40:00.000Z 8586-81-48A61:59:47.000Z BP Sitting (Pre-Dialysis) 174/70 mmHg BP Sitting (Post-Dialysis) 137/79 mmHg Concurrent Access: falseAV Fistula Forearm (Left) Arterial Sitting Heart Rate Pre-Dialysis 55 BPM Sitting H eart Rate Post-Dialysis 62 BPM Temperature Pre-Dialysis 97.2 degF Temperature Post -Dialysis 97.7 degF October 26, 2024 In-Center Hemodialysis Treatment 1060-47-03I06:55:00.000Z 0705-23-90U56:12:04.000Z BP Sitting (Pre-Dialysis) 198/89 mmHg BP Sitting (Post-Dialysis) 188/84 mmHg Concurrent Access: falseAV Fistula Forearm (Left) Arterial Sitting Heart Rate Pre-Dialysis 54 BPM Sitting H eart Rate Post-Dialysis 58 BPM Temperature Pre-Dialysis 97.5 degF Temperature Post -Dialysis 97.6 degF October 24, 2024 In-Center Hemodialysis Treatment 8209-78-22R59:03:00.000Z 0817-86-42K83:01:30.000Z BP Sitting (Pre-Dialysis) 190/82 mmHg BP Sitting (Post-Dialysis) 159/73 mmHg Concurrent Access: falseAV Fistula Forearm (Left) Arterial Sitting Heart Rate Pre-Dialysis 95 BPM Sitting H eart Rate Post-Dialysis 55 BPM Temperature Pre-Dialysis 97.6 degF Temperature Post -Dialysis 97.6 degF October 22, 2024 In-Center Hemodialysis Treatment 0528-55-43X31:45:00.000Z 4339-86-54A76:03:49.000Z BP Sitting (Pre-Dialysis) 167/76 mmHg BP Sitting (Post-Dialysis) 167/101 mmHg Concurrent Access: falseAV Fistula Forearm (Left) Arterial BP Standing (Pre-Dialysis) 176/72 mmHg Sitti ng Heart Rate Post-Dialysis 57 BPM Sitting Heart Rate Pre-Dialysis 54 BPM Temperatu re Post-Dialysis 97.6 degF Standing Heart Rate Pre-Dialysis 56 BPM Temperature Pre-Dialysis 97.6 degF October 19, 2024 In-Center Hemodialysis Treatment 6077-88-32A64:30:29.000Z 4170-00-28G54:52:28.000Z BP Sitting (Pre-Dialysis) 178/73 mmHg BP Sitting (Post-Dialysis) 159/74 mmHg Concurrent Access: falseAV Fistula Forearm (Left) Arterial Sitting Heart Rate Pre-Dialysis 58 BPM Sitting H eart Rate Post-Dialysis 59 BPM Temperature Pre-Dialysis 96.9 degF Temperature Post -Dialysis 98.2 degF October 17, 2024 In-Center Hemodialysis Treatment 8041-82-58Z28:40:54.000Z 3405-83-74L52:02:54.000Z BP Sitting (Pre-Dialysis) 151/76 mmHg BP Sitting (Post-Dialysis) 151/63 mmHg Concurrent Access: falseAV Fistula Forearm (Left) Arterial Sitting Heart Rate Pre-Dialysis 56 BPM BP Standing (Post-Dialysis) 162/72 mmHg Temperature Pre-Dialysis 97.4 degF Sitting Heart Ra te Post-Dialysis 55 BPM Standing Heart Rate Post-Mami lysis 59 BPM Temperature Post-Dialysis 98 .1 degF October 15, 2024 In-Center Hemodialysis Treatment 3135-99-95E42:24:00.000Z 4248-63-61H81:54:21.000Z BP Sitting (Pre-Dialysis) 161/76 mmHg BP Sitting (Post-Dialysis) 154/73 mmHg Concurrent Access: falseAV Fistula Forearm (Left) Arterial Sitting Heart Rate Pre-Dialysis 63 BPM Sitting H eart Rate Post-Dialysis 53 BPM Temperature Pre-Dialysis 97 degF Temperature Post -Dialysis 98.1 degF October 12, 2024 In-Center Hemodialysis Treatment 6746-13-33D31:29:00.000Z 9188-75-47E96:48:38.000Z BP Sitting (Pre-Dialysis) 149/67 mmHg BP Sitting (Post-Dialysis) 160/80 mmHg Concurrent Access: falseAV Fistula Forearm (Left) Arterial Sitting Heart Rate Pre-Dialysis 56 BPM Sitting H eart Rate Post-Dialysis 80 BPM Temperature Pre-Dialysis 97.2 degF Temperature Post -Dialysis 98.2 degF October 10, 2024 In-Center Hemodialysis Treatment 2018-08-67M49:40:04.000Z 9993-76-98Z70:58:04.000Z BP Sitting (Pre-Dialysis) 189/77 mmHg BP Sitting (Post-Dialysis) 159/82 mmHg Concurrent Access: falseAV Fistula Forearm (Left) Arterial Sitting Heart Rate Pre-Dialysis 55 BPM Sitting H eart Rate Post-Dialysis 74 BPM Temperature Pre-Dialysis 97.2 degF Temperature Post -Dialysis 98.2 degF October 08, 2024 In-Center Hemodialysis Treatment 6783-47-93K76:46:31.000Z 4461-50-10M03:03:31.000Z BP Sitting (Pre-Dialysis) 173/63 mmHg BP Sitting (Post-Dialysis) 167/65 mmHg Concurrent Access: falseAV Fistula Forearm (Left) Arterial Sitting Heart Rate Pre-Dialysis 56 BPM Sitting H eart Rate Post-Dialysis 55 BPM Temperature Pre-Dialysis 97 degF Temperature Post -Dialysis 98.1 degF October 05, 2024 In-Center Hemodialysis Treatment 8738-99-42D99:42:34.000Z 4365-57-08D37:56:34.000Z BP Sitting (Pre-Dialysis) 155/60 mmHg BP Sitting (Post-Dialysis) 156/62 mmHg Concurrent Access: falseAV Fistula Forearm (Left) Arterial Sitting Heart Rate Pre-Dialysis 59 BPM Sitting H eart Rate Post-Dialysis 55 BPM Temperature Pre-Dialysis 98.6 degF Temperature Post -Dialysis 98.1 degF October 03, 2024 In-Center Hemodialysis Treatment 8044-27-89B13:40:00.000Z 4847-65-73V61:02:00.000Z BP Sitting (Pre-Dialysis) 162/72 mmHg BP Sitting (Post-Dialysis) 157/62 mmHg Concurrent Access: falseAV Fistula Forearm (Left) Arterial Sitting Heart Rate Pre-Dialysis 56 BPM Sitting H eart Rate Post-Dialysis 51 BPM Temperature Pre-Dialysis 98.3 degF Temperature Post -Dialysis 98.1 degF October 01, 2024 In-Center Hemodialysis Treatment 1645-40-91N22:28:00.000Z 4062-13-60K07:44:06.000Z BP Sitting (Pre-Dialysis) 167/70 mmHg BP Sitting (Post-Dialysis) 160/73 mmHg Concurrent Access: falseAV Fistula Forearm (Left) Arterial Sitting Heart Rate Pre-Dialysis 57 BPM BP Standing (Post-Dialysis) 175/72 mmHg Temperature Pre-Dialysis 97.7 degF Sitting Heart Ra te Post-Dialysis 56 BPM Standing Heart Rate Post-Mami lysis 59 BPM Temperature Post-Dialysis 98 .2 degF September 28, 2024 In-Center Hemodialysis Treatment 9230-83-24J51:47:14.000Z 4871-22-42D15:14:14.000Z BP Sitting (Pre-Dialysis) 166/70 mmHg BP Sitting (Post-Dialysis) 148/65 mmHg Concurrent Access: falseAV Fistula Forearm (Left) Arterial Sitting Heart Rate Pre-Dialysis 64 BPM Sitting H eart Rate Post-Dialysis 61 BPM Temperature Pre-Dialysis 97.7 degF Temperature Post -Dialysis 97.6 degF September 26, 2024 In-Center Hemodialysis Treatment 9378-87-97Q31:38:00.000Z 8096-86-68G65:56:24.000Z BP Sitting (Pre-Dialysis) 151/68 mmHg BP Sitting (Post-Dialysis) 142/63 mmHg Concurrent Access: falseAV Fistula Forearm (Left) Arterial Sitting Heart Rate Pre-Dialysis 61 BPM Sitting H eart Rate Post-Dialysis 52 BPM Temperature Pre-Dialysis 97.7 degF Temperature Post -Dialysis 97.5 degF September 24, 2024 In-Center Hemodialysis Treatment 7170-92-40S56:34:00.000Z 0046-49-69V80:52:07.000Z BP Sitting (Pre-Dialysis) 181/69 mmHg BP Sitting (Post-Dialysis) 187/77 mmHg Concurrent Access: falseAV Fistula Forearm (Left) Arterial Sitting Heart Rate Pre-Dialysis 58 BPM Sitting H eart Rate Post-Dialysis 60 BPM Temperature Pre-Dialysis 97.7 degF Temperature Post -Dialysis 97 degF September 21, 2024 In-Center Hemodialysis Treatment 7666-49-03R80:56:50.000Z 5283-87-39G70:11:50.000Z BP Sitting (Pre-Dialysis) 153/63 mmHg BP Sitting (Post-Dialysis) 176/76 mmHg Concurrent Access: falseAV Fistula Forearm (Left) Arterial Sitting Heart Rate Pre-Dialysis 53 BPM Sitting H eart Rate Post-Dialysis 78 BPM Temperature Pre-Dialysis 97.7 degF Temperature Post -Dialysis 97.8 degF September 17, 2024 In-Center Hemodialysis Treatment 6301-59-50Y13:36:00.000Z 9081-83-88C17:58:44.000Z BP Sitting (Pre-Dialysis) 139/64 mmHg BP Sitting (Post-Dialysis) 140/65 mmHg Concurrent Access: falseAV Fistula Forearm (Left) Arterial Sitting Heart Rate Pre-Dialysis 55 BPM Sitting H eart Rate Post-Dialysis 68 BPM Temperature Pre-Dialysis 97.7 degF Temperature Post -Dialysis 98 degF September 14, 2024 In-Center Hemodialysis Treatment 7327-77-57W53:32:00.000Z 2682-93-56V93:53:53.000Z BP Sitting (Pre-Dialysis) 182/72 mmHg BP Sitting (Post-Dialysis) 203/188 mmHg Concurrent Access: falseAV Fistula Forearm (Left) Arterial Sitting Heart Rate Pre-Dialysis 58 BPM BP Standing (Post-Dialysis) 193/86 mmHg Temperature Pre-Dialysis 98.3 degF Sitting Heart Ra te Post-Dialysis 96 BPM Standing Heart Rate Post-Mami lysis 84 BPM Temperature Post-Dialysis 97 .8 degF September 11, 2024 In-Center Hemodialysis Treatment 6324-49-90I58:42:31.000Z 1413-77-38F22:59:31.000Z BP Sitting (Pre-Dialysis) 140/80 mmHg BP Sitting (Post-Dialysis) 165/80 mmHg Concurrent Access: falseAV Fistula Forearm (Left) Arterial Sitting Heart Rate Pre-Dialysis 78 BPM BP Standing (Post-Dialysis) 177/82 mmHg Temperature Pre-Dialysis 98.2 degF Sitting Heart Ra te Post-Dialysis 70 BPM Standing Heart Rate Post-Mami lysis 74 BPM Temperature Post-Dialysis 97 .2 degF September 09, 2024 In-Center Hemodialysis Treatment 6119-20-34T15:32:30.000Z 7832-34-56H61:59:31.000Z BP Sitting (Pre-Dialysis) 198/86 mmHg BP Sitting (Post-Dialysis) 199/89 mmHg Concurrent Access: falseAV Fistula Forearm (Left) Arterial Sitting Heart Rate Pre-Dialysis 58 BPM Sitting H eart Rate Post-Dialysis 54 BPM Temperature Pre-Dialysis 98.7 degF Temperature Post -Dialysis 98.7 degF September 05, 2024 In-Center Hemodialysis Treatment 0561-52-56H36:34:23.000Z 0025-41-22G89:09:23.000Z BP Sitting (Pre-Dialysis) 157/70 mmHg BP Sitting (Post-Dialysis) 161/66 mmHg Concurrent Access: falseAV Fistula Forearm (Left) Arterial Sitting Heart Rate Pre-Dialysis 60 BPM Sitting H eart Rate Post-Dialysis 54 BPM Temperature Pre-Dialysis 98.7 degF Temperature Post -Dialysis 98.7 degF September 03, 2024 In-Center Hemodialysis Treatment 4117-36-35S06:29:49.000Z 1413-90-89U24:46:49.000Z BP Sitting (Pre-Dialysis) 157/67 mmHg BP Sitting (Post-Dialysis) 149/65 mmHg Concurrent Access: falseAV Fistula Forearm (Left) Arterial Sitting Heart Rate Pre-Dialysis 66 BPM Sitting H eart Rate Post-Dialysis 56 BPM Temperature Pre-Dialysis 97.7 degF Temperature Post -Dialysis 98.7 degF August 31, 2024 In-Center Hemodialysis Treatment 9083-63-57O76:32:00.000Z 0651-04-95H31:52:00.000Z BP Sitting (Pre-Dialysis) 147/62 mmHg BP Sitting (Post-Dialysis) 128/60 mmHg Concurrent Access: falseAV Fistula Forearm (Left) Arterial Sitting Heart Rate Pre-Dialysis 57 BPM Sitting H eart Rate Post-Dialysis 61 BPM Temperature Pre-Dialysis 97.5 degF Temperature Post -Dialysis 97.7 degF August 27, 2024 In-Center Hemodialysis Treatment 5924-55-89U92:43:55.000Z 4270-33-43J72:56:55.000Z BP Sitting (Pre-Dialysis) 186/71 mmHg BP Sitting (Post-Dialysis) 170/70 mmHg Concurrent Access: falseAV Fistula Forearm (Left) Arterial Sitting Heart Rate Pre-Dialysis 67 BPM Sitting H eart Rate Post-Dialysis 60 BPM Temperature Pre-Dialysis 98.7 degF Temperature Post -Dialysis 98.4 degF August 22, 2024 In-Center Hemodialysis Treatment 4806-05-16Z90:45:03.000Z 4938-76-96Q71:06:03.000Z BP Sitting (Pre-Dialysis) 162/75 mmHg BP Sitting (Post-Dialysis) 179/79 mmHg Concurrent Access: falseAV Fistula Forearm (Left) Arterial Sitting Heart Rate Pre-Dialysis 66 BPM Sitting H eart Rate Post-Dialysis 64 BPM Temperature Pre-Dialysis 98.7 degF Temperature Post -Dialysis 98.4 degF August 17, 2024 In-Center Hemodialysis Treatment 2721-97-92C51:29:00.000Z 8673-71-29G25:42:43.000Z BP Sitting (Pre-Dialysis) 144/65 mmHg BP Sitting (Post-Dialysis) 155/67 mmHg Concurrent Access: falseAV Fistula Forearm (Left) Arterial Sitting Heart Rate Pre-Dialysis 71 BPM Sitting H eart Rate Post-Dialysis 61 BPM Temperature Pre-Dialysis 97.7 degF Temperature Post -Dialysis 97.7 degF August 15, 2024 In-Center Hemodialysis Treatment 8460-26-28A36:33:00.000Z 9853-03-33T58:53:28.000Z BP Sitting (Pre-Dialysis) 140/60 mmHg BP Sitting (Post-Dialysis) 163/77 mmHg Concurrent Access: falseAV Fistula Forearm (Left) Arterial Sitting Heart Rate Pre-Dialysis 65 BPM BP Standi ng (Post-Dialysis) 162/64 mmHg Temperature Pre-Dialysis 97 degF Sitting Heart Ra te Post-Dialysis 67 BPM Standing Heart Rate Post-Mami lysis 61 BPM Temperature Post-Dialysis 98 .2 degF August 13, 2024 In-Center Hemodialysis Treatment [id number]:43:00.000Z 7274-92-97P11:10:51.000Z BP Sitting (Pre-Dialysis) 125/54 mmHg BP Sitting (Post-Dialysis) 168/64 mmHg Concurrent Access: falseAV Fistula Forearm (Left) Arterial Sitting Heart Rate Pre-Dialysis 59 BPM BP Standing (Post-Dialysis) 163/70 mmHg Temperature Pre-Dialysis 97.7 degF Sitting Heart Ra te Post-Dialysis 66 BPM Standing Heart Rate Post-Mami lysis 62 BPM Temperature Post-Dialysis 97 .9 degF August 10, 2024 In-Center Hemodialysis Treatment 4006-81-04X27:46:00.000Z 8412-42-81D67:15:43.000Z BP Sitting (Pre-Dialysis) 152/63 mmHg BP Sitting (Post-Dialysis) 170/52 mmHg Concurrent Access: falseAV Fistula Forearm (Left) Arterial Sitting Heart Rate Pre-Dialysis 62 BPM Sitting H eart Rate Post-Dialysis 64 BPM Temperature Pre-Dialysis 97.5 degF Temperature Post -Dialysis 98 degF August 09, 2024 In-Center Hemodialysis Treatment 2633-92-11J76:55:00.000Z 6954-89-13Z41:35:05.000Z BP Sitting (Pre-Dialysis) 160/65 mmHg BP Sitting (Post-Dialysis) 149/60 mmHg Concurrent Access: falseAV Fistula Forearm (Left) Arterial Sitting Heart Rate Pre-Dialysis 57 BPM Sitting H eart Rate Post-Dialysis 58 BPM Temperature Pre-Dialysis 98.1 degF Temperature Post -Dialysis 98.7 degF August 06, 2024 In-Center Hemodialysis Treatment 6558-85-51B04:41:36.000Z 2892-01-52U38:56:36.000Z BP Sitting (Pre-Dialysis) 136/61 mmHg BP Sitting (Post-Dialysis) 161/60 mmHg Concurrent Access: falseAV Fistula Forearm (Left) Arterial Sitting Heart Rate Pre-Dialysis 60 BPM Sitting H eart Rate Post-Dialysis 65 BPM Temperature Pre-Dialysis 97.7 degF Temperature Post -Dialysis 97.7 degF August 04, 2024 In-Center Hemodialysis Treatment 9858-13-05U27:00:14.000Z 3239-21-57E12:10:15.000Z BP Sitting (Pre-Dialysis) 146/67 mmHg BP Sitting (Post-Dialysis) 168/69 mmHg Concurrent Access: falseAV Fistula Forearm (Left) Arterial BP Standing (Pre-Dialysis) 151/64 mmHg Sitti ng Heart Rate Post-Dialysis 58 BPM Sitting Heart Rate Pre-Dialysis 78 BPM Temperatu re Post-Dialysis 98.3 degF Standing Heart Rate Pre-Dialysis 68 BPM Temperature Pre-Dialysis 98 degF July 31, 2024 In-Center Hemodialysis Treatment 1073-18-57Y31:58:00.000Z 9674-33-08A56:25:10.000Z BP Sitting (Pre-Dialysis) 140/59 mmHg BP Sitting (Post-Dialysis) 145/80 mmHg Concurrent Access: falseAV Fistula Forearm (Left) Arterial Sitting Heart Rate Pre-Dialysis 57 BPM Sitting H eart Rate Post-Dialysis 74 BPM Temperature Pre-Dialysis 97.6 degF Temperature Post -Dialysis 98.2 degF July 27, 2024 In-Center Hemodialysis Treatment 6205-68-77X53:35:00.000Z 6897-09-67K01:40:15.000Z BP Sitting (Pre-Dialysis) 158/62 mmHg BP Sitting (Post-Dialysis) 168/71 mmHg Concurrent Access: falseAV Fistula Forearm (Left) Arterial Sitting Heart Rate Pre-Dialysis 60 BPM Sitting H eart Rate Post-Dialysis 60 BPM Temperature Pre-Dialysis 97.5 degF Temperature Post -Dialysis 97.6 degF July 25, 2024 In-Center Hemodialysis Treatment 9009-63-34Y23:50:14.000Z 0975-15-44B31:13:14.000Z BP Sitting (Pre-Dialysis) 152/88 mmHg BP Sitting (Post-Dialysis) 157/65 mmHg Concurrent Access: falseAV Fistula Forearm (Left) Arterial Sitting Heart Rate Pre-Dialysis 64 BPM Sitting H eart Rate Post-Dialysis 58 BPM Temperature Pre-Dialysis 98.7 degF Temperature Post -Dialysis 98.1 degF July 23, 2024 In-Center Hemodialysis Treatment 4270-20-40S78:37:14.000Z 5437-13-63O04:22:14.000Z BP Sitting (Pre-Dialysis) 141/67 mmHg BP Sitting (Post-Dialysis) 156/62 mmHg Concurrent Access: falseAV Fistula Forearm (Left) Arterial Sitting Heart Rate Pre-Dialysis 56 BPM Sitting H eart Rate Post-Dialysis 55 BPM Temperature Pre-Dialysis 98.7 degF Temperature Post -Dialysis 97.5 degF July 19, 2024 In-Center Hemodialysis Treatment 8318-40-02F57:17:00.000Z 9732-34-03R02:37:09.000Z BP Sitting (Pre-Dialysis) 154/67 mmHg BP Sitting (Post-Dialysis) 177/78 mmHg Concurrent Access: falseAV Fistula Forearm (Left) Arterial Sitting Heart Rate Pre-Dialysis 55 BPM Sitting H eart Rate Post-Dialysis 63 BPM Temperature Pre-Dialysis 97.7 degF Temperature Post -Dialysis 97.7 degF July 14, 2024 In-Center Hemodialysis Treatment 9047-35-89X05:46:00.000Z 1504-01-10T84:06:14.000Z BP Sitting (Pre-Dialysis) 160/67 mmHg BP Sitting (Post-Dialysis) 181/73 mmHg Concurrent Access: falseAV Fistula Forearm (Left) Arterial Sitting Heart Rate Pre-Dialysis 61 BPM Sitting H eart Rate Post-Dialysis 59 BPM Temperature Pre-Dialysis 97.6 degF Temperature Post -Dialysis 98 degF July 11, 2024 In-Center Hemodialysis Treatment 8362-35-08Y65:33:10.000Z 0516-13-95N28:53:10.000Z BP Sitting (Pre-Dialysis) 158/62 mmHg BP Sitting (Post-Dialysis) 168/77 mmHg Concurrent Access: falseAV Fistula Forearm (Left) Arterial Sitting Heart Rate Pre-Dialysis 58 BPM Sitting H eart Rate Post-Dialysis 69 BPM Temperature Pre-Dialysis 97.7 degF Temperature Post -Dialysis 97.2 degF July 09, 2024 In-Center Hemodialysis Treatment 1898-75-15B46:48:00.000Z 1957-52-41N06:14:10.000Z BP Sitting (Pre-Dialysis) 145/61 mmHg BP Sitting (Post-Dialysis) 162/71 mmHg Concurrent Access: falseAV Fistula Forearm (Left) Arterial Sitting Heart Rate Pre-Dialysis 55 BPM Sitting H eart Rate Post-Dialysis 58 BPM Temperature Pre-Dialysis 97.5 degF July 07, 2024 In-Center Hemodialysis Treatment 3868-03-50M70:05:13.000Z 5280-59-50F64:43:49.000Z BP Sitting (Pre-Dialysis) 162/85 mmHg BP Sitting (Post-Dialysis) 144/86 mmHg Concurrent Access: falseAV Fistula Forearm (Left) Arterial Sitting Heart Rate Pre-Dialysis 62 BPM Sitting H eart Rate Post-Dialysis 69 BPM Temperature Pre-Dialysis 98.1 degF Temperature Post -Dialysis 97.4 degF July 05, 2024 In-Center Hemodialysis Treatment 9398-18-31X37:16:00.000Z 9538-98-08C83:45:29.000Z BP Sitting (Pre-Dialysis) 160/83 mmHg BP Sitting (Post-Dialysis) 173/95 mmHg Concurrent Access: falseAV Fistula Forearm (Left) Arterial Sitting Heart Rate Pre-Dialysis 80 BPM Sitting H eart Rate Post-Dialysis 80 BPM Temperature Pre-Dialysis 97.6 degF Temperature Post -Dialysis 97.5 degF July 04, 2024 Sequential Treatment 3030-73-01N13:53:28.000Z 7839-12-48X76:46:38.000Z BP Sitting (Pre-Dialysis) 176/90 mmHg BP Sitting (Post-Dialysis) 178/91 mmHg Concurrent Access: falseAV Fistula Forearm (Left) Arterial Sitting Heart Rate Pre-Dialysis 77 BPM Sitting H eart Rate Post-Dialysis 77 BPM Temperature Pre-Dialysis 98.3 degF Temperature Post -Dialysis 98.3 degF July 03, 2024 In-Center Hemodialysis Treatment 4209-02-19C44:10:00.000Z 5427-98-36U44:50:22.000Z BP Sitting (Pre-Dialysis) 145/73 mmHg BP Sitting (Post-Dialysis) 160/87 mmHg Concurrent Access: falseAV Fistula Forearm (Left) Arterial Sitting Heart Rate Pre-Dialysis 80 BPM Sitting H eart Rate Post-Dialysis 80 BPM Temperature Pre-Dialysis 98.2 degF Temperature Post -Dialysis 98 degF June 19, 2024 In-Center Hemodialysis Treatment 350 mL/min 500 mL/min Concurrent Access: false June 16, 2024 In-Center Hemodialysis Treatment 20 24 -0 9- 28 T1 0: 37 :0 0. 00 0Z 20 24 -0 - T1 4: 11 :1 8. 00 0Z BP Sitting (Pre-Dial ysis) 175/93 mmHg BP Sitting (Post-Mami lysis) 166/8 5 mmHg Concurrent Access: falseAV Fistula Forearm (Left) Arterial Sitting Heart Rate Pre-Dialysis 66 BPM Sitting H eart Rate Post-Dialysis 68 BPM Temperature Pre-Dialysis 98.2 degF Temperature Post -Dialysis 98.5 degF June 14, 2024 In-Center Hemodialysis Treatment 2413-31-26Q30:59:39.000Z 1104-13-49Q20:06:39.000Z BP Sitting (Pre-Dialysis) 168/81 mmHg BP Sitting (Post-Dialysis) 146/71 mmHg Concurrent Access: falseAV Fistula Forearm (Left) Arterial Sitting Heart Rate Pre-Dialysis 71 BPM Sitting H eart Rate Post-Dialysis 67 BPM Temperature Pre-Dialysis 97.8 degF Temperature Post -Dialysis 98 degF June 12, 2024 In-Center Hemodialysis Treatment 0238-01-52Q69:57:00.000Z 0178-04-01I29:22:23.000Z BP Sitting (Pre-Dialysis) 164/86 mmHg BP Sitting (Post-Dialysis) 158/87 mmHg Concurrent Access: falseAV Fistula Forearm (Left) Arterial Sitting Heart Rate Pre-Dialysis 80 BPM Sitting H eart Rate Post-Dialysis 60 BPM Temperature Pre-Dialysis 97.8 degF Temperature Post -Dialysis 97.9 degF June 09, 2024 In-Center Hemodialysis Treatment 8580-02-04D10:10:00.000Z 3290-90-34N11:32:04.000Z BP Sitting (Pre-Dialysis) 163/97 mmHg BP Sitting (Post-Dialysis) 146/87 mmHg Concurrent Access: falseAV Fistula Forearm (Left) Arterial Sitting Heart Rate Pre-Dialysis 60 BPM Sitting H eart Rate Post-Dialysis 60 BPM Temperature Pre-Dialysis 97.8 degF Temperature Post -Dialysis 97.4 degF June 07, 2024 In-Center Hemodialysis Treatment 0735-39-64N70:25:00.000Z 1452-52-07X11:46:30.000Z BP Sitting (Pre-Dialysis) 160/86 mmHg BP Sitting (Post-Dialysis) 159/99 mmHg Concurrent Access: falseAV Fistula Forearm (Left) Arterial Sitting Heart Rate Pre-Dialysis 66 BPM Sitting H eart Rate Post-Dialysis 67 BPM Temperature Pre-Dialysis 98.6 degF Temperature Post -Dialysis 97.6 degF May 26, 2024 In-Center Hemodialysis Treatment 9377-76-02L07:09:00.000Z 9934-13-69B51:33:37.000Z BP Sitting (Pre-Dialysis) 164/84 mmHg BP Sitting (Post-Dialysis) 157/76 mmHg Concurrent Access: falseAV Fistula Forearm (Left) Arterial Sitting Heart Rate Pre-Dialysis 60 BPM Sitting H eart Rate Post-Dialysis 60 BPM Temperature Pre-Dialysis 97 degF Temperature Post -Dialysis 97.4 degF May 24, 2024 In-Center Hemodialysis Treatment 1552-86-08A98:11:00.000Z 0693-82-13M96:56:58.000Z BP Sitting (Pre-Dialysis) 163/81 mmHg BP Sitting (Post-Dialysis) 152/99 mmHg Concurrent Access: falseAV Fistula Forearm (Left) Arterial Sitting Heart Rate Pre-Dialysis 60 BPM Sitting H eart Rate Post-Dialysis 66 BPM Temperature Pre-Dialysis 97.9 degF Temperature Post -Dialysis 97.6 degF May 23, 2024 Sequential Treatment 7848-74-07H65:02:00.000Z 8775-03-73E56:27:30.000Z BP Sitting (Pre-Dialysis) 156/79 mmHg BP Sitting (Post-Dialysis) 137/66 mmHg Concurrent Access: falseAV Fistula Forearm (Left) Arterial Sitting Heart Rate Pre-Dialysis 60 BPM Sitting H eart Rate Post-Dialysis 65 BPM Temperature Pre-Dialysis 97.6 degF Temperature Post -Dialysis 97.9 degF May 22, 2024 In-Center Hemodialysis Treatment 2731-53-65V31:59:00.000Z 1931-03-05W38:28:53.000Z BP Sitting (Pre-Dialysis) 154/82 mmHg BP Sitting (Post-Dialysis) 161/73 mmHg Concurrent Access: falseAV Fistula Forearm (Left) Arterial Sitting Heart Rate Pre-Dialysis 66 BPM Sitting H eart Rate Post-Dialysis 60 BPM Temperature Pre-Dialysis 97.6 degF Temperature Post -Dialysis 98.3 degF May 19, 2024 In-Center Hemodialysis Treatment 6370-86-23T87:14:02.000Z 3368-54-39L57:34:48.000Z BP Sitting (Pre-Dialysis) 161/88 mmHg BP Sitting (Post-Dialysis) 154/68 mmHg Concurrent Access: falseAV Fistula Forearm (Left) Arterial Sitting Heart Rate Pre-Dialysis 62 BPM Sitting H eart Rate Post-Dialysis 67 BPM Temperature Pre-Dialysis 98 degF Temperature Post -Dialysis 97.8 degF May 17, 2024 In-Center Hemodialysis Treatment 1973-42-00W63:09:00.000Z 8446-88-80N98:38:59.000Z BP Sitting (Pre-Dialysis) 154/73 mmHg BP Sitting (Post-Dialysis) 162/79 mmHg Concurrent Access: falseAV Fistula Forearm (Left) Arterial Sitting Heart Rate Pre-Dialysis 60 BPM Sitting H eart Rate Post-Dialysis 85 BPM Temperature Pre-Dialysis 98.1 degF Temperature Post -Dialysis 98.3 degF May 15, 2024 In-Center Hemodialysis Treatment 5701-00-04T00:18:00.000Z 3247-42-59Z78:55:55.000Z BP Sitting (Pre-Dialysis) 156/77 mmHg BP Sitting (Post-Dialysis) 141/77 mmHg Concurrent Access: falseAV Fistula Forearm (Left) Arterial BP Standing (Pre-Dialysis) 157/85 mmHg Sitti ng Heart Rate Post-Dialysis 66 BPM Sitting Heart Rate Pre-Dialysis 60 BPM Temperatu re Post-Dialysis 98.3 degF Standing Heart Rate Pre-Dialysis 60 BPM Temperature Pre-Dialysis 97.5 degF May 12, 2024 In-Center Hemodialysis Treatment 8849-59-48M14:09:00.000Z 4028-16-95N81:31:55.000Z BP Sitting (Pre-Dialysis) 158/85 mmHg BP Sitting (Post-Dialysis) 162/82 mmHg Concurrent Access: falseAV Fistula Forearm (Left) Arterial Sitting Heart Rate Pre-Dialysis 62 BPM Sitting H eart Rate Post-Dialysis 68 BPM Temperature Pre-Dialysis 97.9 degF Temperature Post -Dialysis 97.2 degF May 10, 2024 In-Center Hemodialysis Treatment 2478-45-94Z25:12:00.000Z 0221-51-26X26:40:10.000Z BP Sitting (Pre-Dialysis) 163/87 mmHg BP Sitting (Post-Dialysis) 155/84 mmHg Concurrent Access: falseAV Fistula Forearm (Left) Arterial Sitting Heart Rate Pre-Dialysis 86 BPM Sitting H eart Rate Post-Dialysis 66 BPM Temperature Pre-Dialysis 97.9 degF Temperature Post -Dialysis 97.9 degF May 08, 2024 In-Center Hemodialysis Treatment 3764-49-71D27:45:00.000Z 1334-50-61W32:26:47.000Z BP Sitting (Pre-Dialysis) 144/74 mmHg BP Sitting (Post-Dialysis) 155/64 mmHg Concurrent Access: falseAV Fistula Forearm (Left) Arterial Sitting Heart Rate Pre-Dialysis 60 BPM Sitting H eart Rate Post-Dialysis 73 BPM Temperature Pre-Dialysis 98.1 degF Temperature Post -Dialysis 97.3 degF May 05, 2024 In-Center Hemodialysis Treatment 3257-39-20L47:07:00.000Z 9486-11-12O16:30:44.000Z BP Sitting (Pre-Dialysis) 166/76 mmHg BP Sitting (Post-Dialysis) 155/85 mmHg Concurrent Access: falseAV Fistula Forearm (Left) Arterial Sitting Heart Rate Pre-Dialysis 62 BPM Sitting H eart Rate Post-Dialysis 62 BPM Temperature Pre-Dialysis 98.6 degF Temperature Post -Dialysis 98.3 degF May 03, 2024 In-Center Hemodialysis Treatment 9243-24-87P72:58:00.000Z 6831-50-09S26:22:13.000Z BP Sitting (Pre-Dialysis) 156/83 mmHg BP Sitting (Post-Dialysis) 155/70 mmHg Concurrent Access: falseAV Fistula Forearm (Left) Arterial Sitting Heart Rate Pre-Dialysis 60 BPM Sitting H eart Rate Post-Dialysis 60 BPM Temperature Pre-Dialysis 97.8 degF Temperature Post -Dialysis 97.6 degF May 01, 2024 In-Center Hemodialysis Treatment 6316-49-16A22:05:00.000Z 7769-87-89W24:23:00.000Z BP Sitting (Pre-Dialysis) 156/77 mmHg BP Sitting (Post-Dialysis) 168/90 mmHg Concurrent Access: falseAV Fistula Forearm (Left) Arterial Sitting Heart Rate Pre-Dialysis 61 BPM Sitting H eart Rate Post-Dialysis 65 BPM Temperature Pre-Dialysis 97.8 degF Temperature Post -Dialysis 97.6 degF April 28, 2024 In-Center Hemodialysis Treatment 4594-54-71F92:58:00.000Z 8364-81-86F89:50:56.000Z BP Sitting (Pre-Dialysis) 171/91 mmHg BP Sitting (Post-Dialysis) 168/96 mmHg Concurrent Access: falseAV Fistula Forearm (Left) Arterial Sitting Heart Rate Pre-Dialysis 86 BPM Sitting H eart Rate Post-Dialysis 67 BPM Temperature Pre-Dialysis 97.8 degF Temperature Post -Dialysis 98 degF April 26, 2024 In-Center Hemodialysis Treatment 9574-41-35P17:55:00.000Z 0875-42-03B77:21:57.000Z BP Sitting (Pre-Dialysis) 143/75 mmHg BP Sitting (Post-Dialysis) 150/76 mmHg Concurrent Access: falseAV Fistula Forearm (Left) Arterial Sitting Heart Rate Pre-Dialysis 70 BPM Sitting H eart Rate Post-Dialysis 74 BPM Temperature Pre-Dialysis 97.9 degF Temperature Post -Dialysis 98.3 degF April 24, 2024 In-Center Hemodialysis Treatment 5414-42-25T70:58:00.000Z 4454-58-85L96:31:19.000Z BP Sitting (Pre-Dialysis) 156/76 mmHg BP Sitting (Post-Dialysis) 126/96 mmHg Concurrent Access: falseAV Fistula Forearm (Left) Arterial BP Standing (Pre-Dialysis) 150/78 mmHg Sitti ng Heart Rate Post-Dialysis 90 BPM Sitting Heart Rate Pre-Dialysis 68 BPM Temperatu re Post-Dialysis 98.3 degF Standing Heart Rate Pre-Dialysis 60 BPM Temperature Pre-Dialysis 97.6 degF April 21, 2024 In-Center Hemodialysis Treatment 2766-94-91V42:11:00.000Z 7467-85-52X06:29:35.000Z BP Sitting (Pre-Dialysis) 166/90 mmHg BP Sitting (Post-Dialysis) 164/82 mmHg Concurrent Access: falseAV Fistula Forearm (Left) Arterial Sitting Heart Rate Pre-Dialysis 67 BPM Sitting H eart Rate Post-Dialysis 59 BPM Temperature Pre-Dialysis 97.4 degF Temperature Post -Dialysis 98.3 degF April 19, 2024 In-Center Hemodialysis Treatment 9753-28-33W29:24:12.000Z 1128-18-93E80:35:00.000Z BP Sitting (Pre-Dialysis) 170/81 mmHg BP Sitting (Post-Dialysis) 122/80 mmHg Concurrent Access: falseAV Fistula Forearm (Left) Arterial BP Standing (Pre-Dialysis) 170/84 mmHg BP Standing (P ost-Dialysis) 134/86 mmHg Sitting Heart Rate Pre-Dialysis 60 BPM Sitting Heart Rate Post-Dialysis 80 BPM Standing Heart Rate Pre-Dialysis 62 BPM Standing Heart Rate Post-Dialysis 81 BPM Temperature Pre-Dialysis 98 degF Temperature Post -Dialysis 98.3 degF April 17, 2024 In-Center Hemodialysis Treatment 6252-10-60F88:55:00.000Z 8981-11-97K77:20:00.000Z BP Sitting (Pre-Dialysis) 171/98 mmHg BP Sitting (Post-Dialysis) 168/95 mmHg Concurrent Access: falseAV Fistula Forearm (Left) Arterial BP Standing (Pre-Dialysis) 171/92 mmHg Sitti ng Heart Rate Post-Dialysis 80 BPM Sitting Heart Rate Pre-Dialysis 85 BPM Temperatu re Post-Dialysis 98.3 degF Standing Heart Rate Pre-Dialysis 65 BPM Temperature Pre-Dialysis 97.6 degF April 12, 2024 In-Center Hemodialysis Treatment 1389-03-95O07:07:00.000Z 4954-47-67W20:33:41.000Z BP Sitting (Pre-Dialysis) 165/85 mmHg BP Sitting (Post-Dialysis) 170/83 mmHg Concurrent Access: falseAV Fistula Forearm (Left) Arterial BP Standing (Pre-Dialysis) 160/87 mmHg Sitti ng Heart Rate Post-Dialysis 80 BPM Sitting Heart Rate Pre-Dialysis 62 BPM Temperatu re Post-Dialysis 97.4 degF Standing Heart Rate Pre-Dialysis 62 BPM Temperature Pre-Dialysis 96.6 degF April 10, 2024 In-Center Hemodialysis Treatment 3902-81-46E98:52:00.000Z 9439-12-99E35:56:27.000Z BP Sitting (Pre-Dialysis) 158/85 mmHg BP Sitting (Post-Dialysis) 143/74 mmHg Concurrent Access: falseAV Fistula Forearm (Left) Arterial BP Standing (Pre-Dialysis) 158/85 mmHg Sitti ng Heart Rate Post-Dialysis 60 BPM Sitting Heart Rate Pre-Dialysis 68 BPM Temperatu re Post-Dialysis 97.4 degF Standing Heart Rate Pre-Dialysis 68 BPM Temperature Pre-Dialysis 96.6 degF April 07, 2024 In-Center Hemodialysis Treatment 3810-62-61Z22:23:00.000Z 8283-81-48P52:42:53.000Z BP Sitting (Pre-Dialysis) 155/64 mmHg BP Sitting (Post-Dialysis) 153/84 mmHg Concurrent Access: falseAV Fistula Forearm (Left) Arterial BP Standing (Pre-Dialysis) 156/85 mmHg Sitti ng Heart Rate Post-Dialysis 71 BPM Sitting Heart Rate Pre-Dialysis 60 BPM Temperatu re Post-Dialysis 97.6 degF Standing Heart Rate Pre-Dialysis 60 BPM Temperature Pre-Dialysis 96.6 degF April 03, 2024 In-Center Hemodialysis Treatment 4485-68-06P81:00:00.000Z 8742-53-42A00:16:24.000Z BP Sitting (Pre-Dialysis) 168/78 mmHg BP Sitting (Post-Dialysis) 155/72 mmHg Concurrent Access: falseAV Fistula Forearm (Left) Arterial BP Standing (Pre-Dialysis) 154/76 mmHg BP Standing (P ost-Dialysis) 153/62 mmHg Sitting Heart Rate Pre-Dialysis 69 BPM Sitting Heart Rate Post-Dialysis 68 BPM Standing Heart Rate Pre-Dialysis 80 BPM Standing Heart Rate Post-Dialysis 71 BPM Temperature Pre-Dialysis 98.3 degF Temperature Post -Dialysis 97.6 degF March 31, 2024 In-Center Hemodialysis Treatment 4957-77-56O73:59:00.000Z 3184-92-11B64:21:28.000Z BP Sitting (Pre-Dialysis) 141/68 mmHg BP Sitting (Post-Dialysis) 149/71 mmHg Concurrent Access: falseAV Fistula Forearm (Left) Arterial BP Standing (Pre-Dialysis) 140/66 mmHg Sitti ng Heart Rate Post-Dialysis 69 BPM Sitting Heart Rate Pre-Dialysis 62 BPM Temperatu re Post-Dialysis 97.6 degF Standing Heart Rate Pre-Dialysis 62 BPM Temperature Pre-Dialysis 98.3 degF March 28, 2024 In-Center Hemodialysis Treatment 8953-30-86R54:27:00.000Z 5473-59-73U30:47:08.000Z BP Sitting (Pre-Dialysis) 157/77 mmHg BP Sitting (Post-Dialysis) 154/78 mmHg Concurrent Access: falseAV Fistula Forearm (Left) Arterial Sitting Heart Rate Pre-Dialysis 60 BPM BP Standing (Post-Dialysis) 160/81 mmHg Temperature Pre-Dialysis 97.6 degF Sitting Heart Ra te Post-Dialysis 70 BPM Standing Heart Rate Post-Mami lysis 69 BPM Temperature Post-Dialysis 98 degF March 24, 2024 In-Center Hemodialysis Treatment [id number]:57:00.000Z 4641-02-10J59:26:11.000Z BP Sitting (Pre-Dialysis) 166/86 mmHg BP Sitting (Post-Dialysis) 161/77 mmHg Concurrent Access: falseAV Fistula Forearm (Left) Arterial Sitting Heart Rate Pre-Dialysis 65 BPM BP Standing (Post-Dialysis) 166/82 mmHg Temperature Pre-Dialysis 98.3 degF Sitting Heart Ra te Post-Dialysis 70 BPM Standing Heart Rate Post-Mami lysis 77 BPM Temperature Post-Dialysis 97 .5 degF March 22, 2024 In-Center Hemodialysis Treatment 0632-48-79M39:00:00.000Z 9908-04-95X64:58:55.000Z BP Sitting (Pre-Dialysis) 187/94 mmHg BP Sitting (Post-Dialysis) 132/91 mmHg Concurrent Access: falseAV Fistula Forearm (Left) Arterial Sitting Heart Rate Pre-Dialysis 66 BPM BP Standing (Post-Dialysis) 147/87 mmHg Temperature Pre-Dialysis 98.3 degF Sitting Heart Ra te Post-Dialysis 81 BPM Standing Heart Rate Post-Mami lysis 62 BPM Temperature Post-Dialysis 98 .3 degF March 20, 2024 In-Center Hemodialysis Treatment 2754-49-28G45:55:00.000Z 1249-54-05G37:00:35.000Z BP Sitting (Pre-Dialysis) 159/60 mmHg BP Sitting (Post-Dialysis) 159/76 mmHg Concurrent Access: falseAV Fistula Forearm (Left) Arterial BP Standing (Pre-Dialysis) 167/76 mmHg BP Standing (P ost-Dialysis) 151/77 mmHg Sitting Heart Rate Pre-Dialysis 71 BPM Sitting Heart Rate Post-Dialysis 60 BPM Standing Heart Rate Pre-Dialysis 60 BPM Standing Heart Rate Post-Dialysis 60 BPM Temperature Pre-Dialysis 98 degF Temperature Post -Dialysis 97.6 degF March 17, 2024 In-Center Hemodialysis Treatment [id number]:54:00.000Z [id number]:01:21.000Z BP Sitting (Pre-Dialysis) 163/85 mmHg BP Sitting (Post-Dialysis) 138/111 mmHg Concurrent Access: falseAV Fistula Forearm (Left) Arterial BP Standing (Pre-Dialysis) 171/87 mmHg Sitti ng Heart Rate Post-Dialysis 65 BPM Sitting Heart Rate Pre-Dialysis 60 BPM Temperatu re Post-Dialysis 97.6 degF Standing Heart Rate Pre-Dialysis 60 BPM Temperature Pre-Dialysis 97.8 degF March 15, 2024 In-Center Hemodialysis Treatment [id number]:10:00.000Z [id number]:39:33.000Z BP Sitting (Pre-Dialysis) 173/91 mmHg BP Sitting (Post-Dialysis) 161/70 mmHg Concurrent Access: falseAV Fistula Forearm (Left) Arterial BP Standing (Pre-Dialysis) 168/93 mmHg Sitti ng Heart Rate Post-Dialysis 60 BPM Sitting Heart Rate Pre-Dialysis 60 BPM Temperatu re Post-Dialysis 97.6 degF Standing Heart Rate Pre-Dialysis 60 BPM Temperature Pre-Dialysis 97.6 degF March 13, 2024 In-Center Hemodialysis Treatment [id number]:57:00.000Z [id number]:58:30.000Z BP Sitting (Pre-Dialysis) 171/87 mmHg BP Sitting (Post-Dialysis) 154/73 mmHg Concurrent Access: falseAV Fistula Forearm (Left) Arterial BP Standing (Pre-Dialysis) 166/86 mmHg BP Standing (P ost-Dialysis) 136/96 mmHg Sitting Heart Rate Pre-Dialysis 68 BPM Sitting Heart Rate Post-Dialysis 60 BPM Standing Heart Rate Pre-Dialysis 80 BPM Standing Heart Rate Post-Dialysis 65 BPM Temperature Pre-Dialysis 98.6 degF Temperature Post -Dialysis 98.6 degF March 06, 2024 In-Center Hemodialysis Treatment [id number]:08:00.000Z [id number]:04:20.000Z BP Sitting (Pre-Dialysis) 178/91 mmHg BP Sitting (Post-Dialysis) 177/86 mmHg Concurrent Access: falseAV Fistula Forearm (Left) Arterial BP Standing (Pre-Dialysis) 169/91 mmHg BP Standing (P ost-Dialysis) 164/91 mmHg Sitting Heart Rate Pre-Dialysis 60 BPM Sitting Heart Rate Post-Dialysis 65 BPM Standing Heart Rate Pre-Dialysis 61 BPM Standing Heart Rate Post-Dialysis 66 BPM Temperature Pre-Dialysis 97.6 degF Temperature Post -Dialysis 97.8 degF March 03, 2024 In-Center Hemodialysis Treatment [id number]:08:00.000Z [id number]:12:31.000Z BP Sitting (Pre-Dialysis) 153/79 mmHg BP Sitting (Post-Dialysis) 152/98 mmHg Concurrent Access: falseAV Fistula Forearm (Left) Arterial BP Standing (Pre-Dialysis) 144/99 mmHg Sitti ng Heart Rate Post-Dialysis 60 BPM Sitting Heart Rate Pre-Dialysis 60 BPM Temperatu re Post-Dialysis 97.6 degF Standing Heart Rate Pre-Dialysis 65 BPM Temperature Pre-Dialysis 97.4 degF February 28, 2024 In-Center Hemodialysis Treatment [id number]:12:00.000Z [id number]:10:03.000Z BP Sitting (Pre-Dialysis) 165/83 mmHg BP Sitting (Post-Dialysis) 155/85 mmHg Concurrent Access: falseAV Fistula Forearm (Left) Arterial BP Standing (Pre-Dialysis) 163/84 mmHg Sitti ng Heart Rate Post-Dialysis 52 BPM Sitting Heart Rate Pre-Dialysis 65 BPM Temperatu re Post-Dialysis 97.8 degF Standing Heart Rate Pre-Dialysis 63 BPM Temperature Pre-Dialysis 97.6 degF February 23, 2024 In-Center Hemodialysis Treatment [id number]:05:00.000Z [id number]:59:42.000Z BP Sitting (Pre-Dialysis) 168/85 mmHg BP Sitting (Post-Dialysis) 162/83 mmHg Concurrent Access: falseAV Fistula Forearm (Left) Arterial BP Standing (Pre-Dialysis) 116/84 mmHg BP Standing (P ost-Dialysis) 116/84 mmHg Sitting Heart Rate Pre-Dialysis 60 BPM Sitting Heart Rate Post-Dialysis 60 BPM Standing Heart Rate Pre-Dialysis 85 BPM Standing Heart Rate Post-Dialysis 80 BPM Temperature Pre-Dialysis 97.6 degF Temperature Post -Dialysis 97.8 degF February 21, 2024 In-Center Hemodialysis Treatment [id number]:10:00.000Z [id number]:14:58.000Z BP Sitting (Pre-Dialysis) 170/92 mmHg BP Sitting (Post-Dialysis) 168/90 mmHg Concurrent Access: falseAV Fistula Forearm (Left) Arterial BP Standing (Pre-Dialysis) 169/92 mmHg BP Standing (P ost-Dialysis) 172/80 mmHg Sitting Heart Rate Pre-Dialysis 60 BPM Sitting Heart Rate Post-Dialysis 60 BPM Standing Heart Rate Pre-Dialysis 60 BPM Standing Heart Rate Post-Dialysis 60 BPM Temperature Pre-Dialysis 97.6 degF Temperature Post -Dialysis 97.6 degF February 18, 2024 In-Center Hemodialysis Treatment [id number]:03:00.000Z [id number]:13:11.000Z BP Sitting (Pre-Dialysis) 177/92 mmHg BP Sitting (Post-Dialysis) 165/78 mmHg Concurrent Access: falseAV Fistula Forearm (Left) Arterial Sitting Heart Rate Pre-Dialysis 60 BPM BP Standing (Post-Dialysis) 174/82 mmHg Temperature Pre-Dialysis 98.6 degF Sitting Heart Ra te Post-Dialysis 65 BPM Standing Heart Rate Post-Mami lysis 60 BPM Temperature Post-Dialysis 97 .6 degF February 16, 2024 In-Center Hemodialysis Treatment [id number]:01:00.000Z [id number]:04:14.000Z BP Sitting (Pre-Dialysis) 140/91 mmHg BP Sitting (Post-Dialysis) 164/84 mmHg Concurrent Access: falseAV Fistula Forearm (Left) Arterial BP Standing (Pre-Dialysis) 164/76 mmHg Sitti ng Heart Rate Post-Dialysis 60 BPM Sitting Heart Rate Pre-Dialysis 80 BPM Temperatu re Post-Dialysis 97.6 degF Standing Heart Rate Pre-Dialysis 60 BPM Temperature Pre-Dialysis 97.6 degF February 11, 2024 In-Center Hemodialysis Treatment [id number]:05:00.000Z [id number]:08:29.000Z BP Sitting (Pre-Dialysis) 169/88 mmHg BP Sitting (Post-Dialysis) 171/90 mmHg Concurrent Access: falseAV Fistula Forearm (Left) Arterial Sitting Heart Rate Pre-Dialysis 60 BPM BP Standing (Post-Dialysis) 169/75 mmHg Temperature Pre-Dialysis 97.8 degF Sitting Heart Ra te Post-Dialysis 80 BPM Standing Heart Rate Post-Mami lysis 65 BPM Temperature Post-Dialysis 97 .6 degF February 09, 2024 In-Center Hemodialysis Treatment [id number]:57:00.000Z [id number]:02:42.000Z BP Sitting (Pre-Dialysis) 151/76 mmHg BP Sitting (Post-Dialysis) 150/71 mmHg Concurrent Access: falseAV Fistula Forearm (Left) Arterial BP Standing (Pre-Dialysis) 167/74 mmHg BP Standing (P ost-Dialysis) 140/79 mmHg Sitting Heart Rate Pre-Dialysis 65 BPM Sitting Heart Rate Post-Dialysis 60 BPM Standing Heart Rate Pre-Dialysis 66 BPM Standing Heart Rate Post-Dialysis 60 BPM Temperature Pre-Dialysis 97.6 degF Temperature Post -Dialysis 97.6 degF February 07, 2024 In-Center Hemodialysis Treatment [id number]:07:00.000Z [id number]:05:34.000Z BP Sitting (Pre-Dialysis) 168/96 mmHg BP Sitting (Post-Dialysis) 166/89 mmHg Concurrent Access: falseAV Fistula Forearm (Left) Arterial BP Standing (Pre-Dialysis) 127/96 mmHg BP Standing (P ost-Dialysis) 166/90 mmHg Sitting Heart Rate Pre-Dialysis 60 BPM Sitting Heart Rate Post-Dialysis 66 BPM Standing Heart Rate Pre-Dialysis 98 BPM Standing Heart Rate Post-Dialysis 60 BPM Temperature Pre-Dialysis 97.5 degF Temperature Post -Dialysis 97.6 degF February 06, 2024 Additional Day Of Dialysis Treatment [id number]:12:00.000Z [id number]:12:33.000Z BP Sitting (Pre-Dialysis) 162/85 mmHg BP Sitting (Post-Dialysis) 169/87 mmHg Concurrent Access: falseAV Fistula Forearm (Left) Arterial BP Standing (Pre-Dialysis) 155/79 mmHg BP Standing (P ost-Dialysis) 163/86 mmHg Sitting Heart Rate Pre-Dialysis 60 BPM Sitting Heart Rate Post-Dialysis 62 BPM Standing Heart Rate Pre-Dialysis 60 BPM Standing Heart Rate Post-Dialysis 60 BPM Temperature Pre-Dialysis 98.3 degF Temperature Post -Dialysis 97.5 degF February 02, 2024 In-Center Hemodialysis Treatment [id number]:01:00.000Z [id number]:34:47.000Z BP Sitting (Pre-Dialysis) 177/89 mmHg BP Sitting (Post-Dialysis) 144/97 mmHg Concurrent Access: falseAV Fistula Forearm (Left) Arterial BP Standing (Pre-Dialysis) 163/101 mmHg Sitti ng Heart Rate Post-Dialysis 60 BPM Sitting Heart Rate Pre-Dialysis 60 BPM Temperatu re Post-Dialysis 97.5 degF Standing Heart Rate Pre-Dialysis 60 BPM Temperature Pre-Dialysis 97.6 degF January 28, 2024 In-Center Hemodialysis Treatment [id number]:34:00.000Z [id number]:41:16.000Z BP Sitting (Pre-Dialysis) 168/86 mmHg BP Sitting (Post-Dialysis) 172/89 mmHg Concurrent Access: falseAV Fistula Forearm (Left) Arterial BP Standing (Pre-Dialysis) 120/87 mmHg BP Standing (P ost-Dialysis) 132/91 mmHg Sitting Heart Rate Pre-Dialysis 60 BPM Sitting Heart Rate Post-Dialysis 62 BPM Standing Heart Rate Pre-Dialysis 105 BPM Standing Heart Rate Post-Dialysis 69 BPM Temperature Pre-Dialysis 97.3 degF Temperature Post -Dialysis 97.3 degF January 26, 2024 In-Center Hemodialysis Treatment [id number]:05:00.000Z [id number]:08:57.000Z BP Sitting (Pre-Dialysis) 176/75 mmHg BP Sitting (Post-Dialysis) 142/62 mmHg Concurrent Access: falseAV Fistula Forearm (Left) Arterial Sitting Heart Rate Pre-Dialysis 60 BPM Sitting H eart Rate Post-Dialysis 60 BPM Temperature Pre-Dialysis 98.6 degF Temperature Post -Dialysis 97.3 degF January 25, 2024 In-Center Hemodialysis Treatment [id number]:15:00.000Z [id number]:45:00.000Z BP Sitting (Pre-Dialysis) 156/85 mmHg BP Sitting (Post-Dialysis) 145/76 mmHg Concurrent Access: falseAV Fistula Forearm (Left) Arterial BP Standing (Pre-Dialysis) 148/80 mmHg BP Standing (P ost-Dialysis) 156/77 mmHg Sitting Heart Rate Pre-Dialysis 60 BPM Sitting Heart Rate Post-Dialysis 60 BPM Standing Heart Rate Pre-Dialysis 60 BPM Standing Heart Rate Post-Dialysis 65 BPM Temperature Pre-Dialysis 97.5 degF Temperature Post -Dialysis 97.3 degF January 21, 2024 In-Center Hemodialysis Treatment [id number]:06:00.000Z [id number]:10:10.000Z BP Sitting (Pre-Dialysis) 175/97 mmHg BP Sitting (Post-Dialysis) 177/85 mmHg Concurrent Access: falseAV Fistula Forearm (Left) Arterial BP Standing (Pre-Dialysis) 170/95 mmHg Sitti ng Heart Rate Post-Dialysis 60 BPM Sitting Heart Rate Pre-Dialysis 60 BPM Temperatu re Post-Dialysis 97.3 degF Standing Heart Rate Pre-Dialysis 80 BPM Temperature Pre-Dialysis 98 degF January 20, 2024 In-Center Hemodialysis Treatment [id number]:02:00.000Z [id number]:12:46.000Z BP Sitting (Pre-Dialysis) 156/96 mmHg BP Sitting (Post-Dialysis) 156/83 mmHg Concurrent Access: falseAV Fistula Forearm (Left) Arterial BP Standing (Pre-Dialysis) 156/85 mmHg BP Standing (P ost-Dialysis) 166/89 mmHg Sitting Heart Rate Pre-Dialysis 86 BPM Sitting Heart Rate Post-Dialysis 60 BPM Standing Heart Rate Pre-Dialysis 86 BPM Standing Heart Rate Post-Dialysis 65 BPM Temperature Pre-Dialysis 98 degF Temperature Post -Dialysis 97.6 degF January 17, 2024 In-Center Hemodialysis Treatment [id number]:21:00.000Z [id number]:25:48.000Z BP Sitting (Pre-Dialysis) 180/97 mmHg BP Sitting (Post-Dialysis) 146/99 mmHg Concurrent Access: falseAV Fistula Forearm (Left) Arterial BP Standing (Pre-Dialysis) 181/99 mmHg BP Standing (P ost-Dialysis) 177/95 mmHg Sitting Heart Rate Pre-Dialysis 60 BPM Sitting Heart Rate Post-Dialysis 62 BPM Standing Heart Rate Pre-Dialysis 66 BPM Standing Heart Rate Post-Dialysis 67 BPM Temperature Pre-Dialysis 98 degF Temperature Post -Dialysis 97.6 degF July 12, 2022 In-Center Hemodialysis Treatment [id number]:09:00.000Z [id number]:52:16.000Z BP Sitting (Pre-Dialysis) 149/73 mmHg BP Sitting (Post-Dialysis) 112/62 mmHg Concurrent Access: falseAV Fistula Forearm (Left) Arterial BP Standing (Pre-Dialysis) 146/72 mmHg BP Standing (P ost-Dialysis) 118/80 mmHg Sitting Heart Rate Pre-Dialysis 85 BPM Sitting Heart Rate Post-Dialysis 85 BPM Standing Heart Rate Pre-Dialysis 80 BPM Standing Heart Rate Post-Dialysis 95 BPM Temperature Pre-Dialysis 97.3 degF Temperature Post -Dialysis 97.3 degF July 09, 2022 In-Center Hemodialysis Treatment [id number]:13:00.000Z [id number]:59:32.000Z BP Sitting (Pre-Dialysis) 173/85 mmHg BP Sitting (Post-Dialysis) 162/61 mmHg Concurrent Access: falseAV Fistula Forearm (Left) Arterial BP Standing (Pre-Dialysis) 176/84 mmHg BP Standing (P ost-Dialysis) 161/90 mmHg Sitting Heart Rate Pre-Dialysis 80 BPM Sitting Heart Rate Post-Dialysis 80 BPM Standing Heart Rate Pre-Dialysis 81 BPM Standing Heart Rate Post-Dialysis 87 BPM Temperature Pre-Dialysis 97.1 degF Temperature Post -Dialysis 97.2 degF May 28, 2022 In-Center Hemodialysis Treatment [id number]:50:00.000Z [id number]:42:57.000Z BP Sitting (Pre-Dialysis) 185/98 mmHg BP Sitting (Post-Dialysis) 129/84 mmHg Concurrent Access: falseAV Fistula Forearm (Left) Arterial BP Standing (Pre-Dialysis) 153/90 mmHg BP Standing (P ost-Dialysis) 122/68 mmHg Sitting Heart Rate Pre-Dialysis 80 BPM Sitting Heart Rate Post-Dialysis 86 BPM Standing Heart Rate Pre-Dialysis 85 BPM Standing Heart Rate Post-Dialysis 89 BPM Temperature Pre-Dialysis 97.2 degF Temperature Post -Dialysis 97.7 degF DIALYSIS ORDER Dialysis Procedure Orders Type of Dialysis Procedure Order Order Date/Time Observations In-Center Hemodialysis Treatment June 24, 2025 Target Weight 57.5 kg Dialysate Flow Rate 800 mL/min Blood Flow Rate 450 mL/min Treatment Time 210 min(total) Max UF Rate 13 mL/kg/hr Base Sodium Dialysate Base Sodium 138 mE q/L dialysate_temp 36.5 C BiCarb Dialysate BiCarbonate 35 meq/L Access Concurrent No Arterial Access AV Fistula (Forearm (Left)) Venous Access AV Fistula (Forearm (Left)) Arterial Needle Display NIPRO, CHANOIP, 15 G x 1 , SHARP WITH 16 TUBING, SINGLE Venous Needle NIPRO, CHANOIP, 15G x 1 , SHARP WITH 16 TUBING, SINGLE Dialyzer [employer] Optiflux F [id number] 1218 [email or web address] Dialysate Bath Potassium Potassium 3 mEq /L Dialysate Bath Calcium Calcium 2.5 mEq/L In-Center Hemodialysis [id number] Observation Value Target Weight 60 kg Dialysate Flow Rate 800 mL/min Blood Flow Rate 450 mL/min Treatment Time 210 min(total) Max UF Rate 13 mL/kg/hr Base Sodium Dialysate Base Sodium 138 mE q/L dialysate_temp 36.5 C BiCarb Dialysate BiCarbonate 35 mEq/L Access Concurrent No Arterial Access AV Fistula (Forearm (Left)) Venous Access AV Fistula (Forearm (Left)) Arterial Needle Display NIPRO, CHANOIP, 15 G x 1 , SHARP WITH 16 TUBING, SINGLE Venous Needle NIPRO, TULIP, 15G x 1 , SHARP WITH 16 TUBING, SINGLE Dialyzer [employer] Optiflux F [id number] 1328 [email or web address] Dialysate Bath Potassium Potassium 2 mEq /L Dialysate Bath Calcium Calcium 2.5 mEq/L In-Center Hemodialysis [id number] Observation Value Target Weight 57.5 kg Dialysate Flow Rate 800 mL/min Blood Flow Rate 400 mL/min Treatment Time 195 min(total) Max UF Rate 13 mL/kg/hr Base Sodium Dialysate Base Sodium 138 mE q/L dialysate_temp 36.5 C BiCarb Dialysate BiCarbonate 35 mEq/L Access Concurrent No Arterial Access AV Fistula (Forearm (Left)) Venous Access AV Fistula (Forearm (Left)) Arterial Needle Display NIPRO, RAGHAV, 15 G x 1 , SHARP WITH 16 TUBING, SINGLE Venous Needle NIPRO, CHANOIP, 15G x 1 , SHARP WITH 16 TUBING, SINGLE Dialyzer Nipro Cellentia 21H 1603 [email or web address] Dialysate Bath Potassium Potassium 3 mEq /L Dialysate Bath Calcium Calcium 2.5 mEq/L Results Adequacy Description Draw Date Result/Unit Status Ref Range Result Comments LENGTH OF DIALYSIS 2025-07-09 23:08:48 234 min F PRESCRIBED DAYS/WEEK 2025-07-09 23:08:48 3 Day/Wk F AMPUTATE FACTOR 2025-07-09 23:08:48 0 F BSA ANAND 2025-07-09 23:08:48 1.67 sq m F TBW ([facility]) 2025-07-09 23:08:48 30.37 Liters F nPCR 2025-07-09 23:08:48 0.89 G/KG/D F Dialyzer JEANINE 2025-07-09 23:08:48 1218 Calc F CURRENT KRU 2025-07-09 23:08:48 F stdKT/V Total 2025-07-09 23:08:48 N/A F stdKt/V (DIAL) 2025-07-09 23:08:48 N/A F TOTAL HOURS/WEEK DIALYSIS 2025-07-09 23:08:48 10 hrs F Std Renal KT/V 2025-07-09 23:08:48 N/A F VM (KT/V MEAN VOL) 2025-07-09 23:08:48 526.7 F eKt/V 2025-07-09 23:08:48 1.07 F Residual kt/v 2025-07-09 23:08:48 F WEIGHT (KG) 2025-07-09 23:08:48 57.5 kg F PATIENT AGE 2025-07-09 23:08:48 55 Years F Total Kt/V 2025-07-09 23:08:48 1.23 F BLOOD FLOW-QWB 2025-07-09 23:08:48 417 F VT (KT/V TX VOL) 2025-07-09 23:08:48 57.1 L F URR% 2025-07-09 23:08:48 65 % F DIALYZER FLOW-QD 2025-07-09 23:08:48 809 mL/min F WEIGHT - POST DAY 1 2025-07-09 23:08:48 57.9 kg F KT/V PRESCRIBED 2025-07-09 23:08:48 2.92 F WEIGHT - PRE DAY 1 2025-07-09 23:08:48 61.5 kg F spKt/V 2025-07-09 23:08:48 1.23 F HEIGHT IN INCHES 2025-07-09 23:08:48 67 Inches F URR% 2025-07-09 23:08:48 65 % F DIALYZER FLOW-QD 2025-07-09 23:08:48 809 mL/min F Dialyzer JEANINE 2025-07-09 23:08:48 1218 Calc F LENGTH OF DIALYSIS 2025-07-09 23:08:48 234 min F PATIENT AGE 2025-07-09 23:08:48 55 Years F BSA ANAND 2025-07-09 23:08:48 1.67 sq m F WEIGHT - PRE DAY 1 2025-07-09 23:08:48 61.5 kg F WEIGHT - POST DAY 1 2025-07-09 23:08:48 57.9 kg F HEIGHT IN INCHES 2025-07-09 23:08:48 67 Inches F WEIGHT (KG) 2025-07-09 23:08:48 57.5 kg F PRESCRIBED DAYS/WEEK 2025-07-09 23:08:48 3 Day/Wk F VT (KT/V TX VOL) 2025-07-09 23:08:48 57.1 L F VM (KT/V MEAN VOL) 2025-07-09 23:08:48 526.7 F KT/V PRESCRIBED 2025-07-09 23:08:48 2.92 F Total Kt/V 2025-07-09 23:08:48 1.23 F Residual kt/v 2025-07-09 23:08:48 F nPCR 2025-07-09 23:08:48 0.89 G/KG/D F AMPUTATE FACTOR 2025-07-09 23:08:48 0 F TBW ([place]) 2025-07-09 23:08:48 30.37 Liters F spKt/V 2025-07-09 23:08:48 1.23 F eKt/V 2025-07-09 23:08:48 1.07 F Std Renal KT/V 2025-07-09 23:08:48 N/A F stdKT/V Total 2025-07-09 23:08:48 N/A F stdKt/V (DIAL) 2025-07-09 23:08:48 N/A F TOTAL HOURS/WEEK DIALYSIS 2025-07-09 23:08:48 10 hrs F BLOOD FLOW-QWB 2025-07-09 23:08:48 417 F CURRENT KRU 2025-07-09 23:08:48 F Urea nitrogen [Mass/volume] in Serum or Plasma 2025-07-09 23:07:17 60 mg/dL F 9.0-23.0 Urea nitrogen [Mass/volume] in Serum or Plasma 2025-07-09 23:07:17 60 mg/dL F 9.0-23.0 Urea nitrogen [Mass/volume] in Serum or Plasma --post dialysis 2025-07-09 19:15:17 21 mg/dL F 9.0-23.0 Urea nitrogen [Mass/volume] in Serum or Plasma --post dialysis 2025-07-09 19:15:17 21 mg/dL F 9.0-23.0 DIALYZER FLOW-QD 2025-07-05 21:24:05 800 mL/min F URR% 2025-07-05 21:24:05 57 % F LENGTH OF DIALYSIS 2025-07-05 21:24:05 175 min F Dialyzer JEANINE 2025-07-05 21:24:05 1218 Calc F PATIENT AGE 2025-07-05 21:24:05 55 Years F BSA ANAND 2025-07-05 21:24:05 1.67 sq m F WEIGHT - PRE DAY 1 2025-07-05 21:24:05 60.3 kg F WEIGHT - POST DAY 1 2025-07-05 21:24:05 59.2 kg F HEIGHT IN INCHES 2025-07-05 21:24:05 67 Inches F WEIGHT (KG) 2025-07-05 21:24:05 57.5 kg F PRESCRIBED DAYS/WEEK 2025-07-05 21:24:05 3 Day/Wk F VT (KT/V TX VOL) 2025-07-05 21:24:05 58.5 L F VM (KT/V MEAN VOL) 2025-07-05 21:24:05 526.7 F KT/V PRESCRIBED 2025-07-05 21:24:05 2.18 F Total Kt/V 2025-07-05 21:24:05 0.89 F nPCR 2025-07-05 21:24:05 0.58 G/KG/D F Residual kt/v 2025-07-05 21:24:05 F Unable to calculate: Post BUN lab result is unknown AMPUTATE FACTOR 2025-07-05 21:24:05 0 F TBW ([place]) 2025-07-05 21:24:05 30.69 Liters F spKt/V 2025-07-05 21:24:05 0.89 F stdKt/V (DIAL) 2025-07-05 21:24:05 N/A F eKt/V 2025-07-05 21:24:05 0.76 F Std Renal KT/V 2025-07-05 21:24:05 N/A F stdKT/V Total 2025-07-05 21:24:05 N/A F TOTAL HOURS/WEEK DIALYSIS 2025-07-05 21:24:05 6 hrs F BLOOD FLOW-QWB 2025-07-05 21:24:05 414 F CURRENT KRU 2025-07-05 21:24:05 F Unable to calculate: Post BUN lab result is unknown Urea nitrogen [Mass/volume] in Serum or Plasma --post dialysis 2025-07-05 21:22:21 29 mg/dL F 9.0-23.0 Urea nitrogen [Mass/volume] in Serum or Plasma 2025-07-05 19:06:16 67 mg/dL F 9.0-23.0 URR% 2025-07-03 16:42:44 67 % F Dialyzer JEANINE 2025-07-03 16:42:44 1218 Calc F DIALYZER FLOW-QD 2025-07-03 16:42:44 800 mL/min F PATIENT AGE 2025-07-03 16:42:44 55 Years F BSA ANAND 2025-07-03 16:42:44 1.67 sq m F LENGTH OF DIALYSIS 2025-07-03 16:42:44 222 min F WEIGHT - POST DAY 1 2025-07-03 16:42:44 75.9 kg F WEIGHT - PRE DAY 1 2025-07-03 16:42:44 57.8 kg F HEIGHT IN INCHES 2025-07-03 16:42:44 67 Inches F WEIGHT (KG) 2025-07-03 16:42:44 57.5 kg F PRESCRIBED DAYS/WEEK 2025-07-03 16:42:44 3 Day/Wk F VT (KT/V TX VOL) 2025-07-03 16:42:44 60.4 L F VM (KT/V MEAN VOL) 2025-07-03 16:42:44 526.7 F KT/V PRESCRIBED 2025-07-03 16:42:44 2.77 F Residual kt/v 2025-07-03 16:42:44 F Unable to calculate: Post BUN lab result is unknown Total Kt/V 2025-07-03 16:42:44 1.14 F nPCR 2025-07-03 16:42:44 0.47 G/KG/D F TBW ([place]) 2025-07-03 16:42:44 34.81 Liters F AMPUTATE FACTOR 2025-07-03 16:42:44 0 F spKt/V 2025-07-03 16:42:44 1.14 F eKt/V 2025-07-03 16:42:44 0.99 F stdKt/V (DIAL) 2025-07-03 16:42:44 N/A F TOTAL HOURS/WEEK DIALYSIS 2025-07-03 16:42:44 3 hrs F stdKT/V Total 2025-07-03 16:42:44 N/A F Std Renal KT/V 2025-07-03 16:42:44 N/A F BLOOD FLOW-QWB 2025-07-03 16:42:44 450 F CURRENT KRU 2025-07-03 16:42:44 F Unable to calculate: Post BUN lab result is unknown Urea nitrogen [Mass/volume] in Serum or Plasma --post dialysis 2025-07-03 16:41:16 24 mg/dL F 9.0-23.0 Urea nitrogen [Mass/volume] in Serum or Plasma 2025-07-03 14:56:19 73 mg/dL F 9.0-23.0 Creatinine [Mass/volume] in Serum or Plasma 2025-07-03 14:56:19 3.34 mg/dL F 0.5-1.1 Creatinine [Mass/volume] in Serum or Plasma 2025-05-30 01:55:27 4.3 mg/dL F 0.5-1.1 Creatinine [Mass/volume] in Serum or Plasma 2025-05-30 01:55:27 4.3 mg/dL F 0.5-1.1 URR% 2025-05-28 22:27:55 67 % F DIALYZER FLOW-QD 2025-05-28 22:27:55 816 mL/min F LENGTH OF DIALYSIS 2025-05-28 22:27:55 154 min F Dialyzer JEANINE 2025-05-28 22:27:55 1218 Calc F PATIENT AGE 2025-05-28 22:27:55 55 Years F WEIGHT - POST DAY 1 2025-05-28 22:27:55 60.3 kg F BSA ANAND 2025-05-28 22:27:55 1.7 sq m F WEIGHT - PRE DAY 1 2025-05-28 22:27:55 61.2 kg F HEIGHT IN INCHES 2025-05-28 22:27:55 67 Inches F PRESCRIBED DAYS/WEEK 2025-05-28 22:27:55 3 Day/Wk F VT (KT/V TX VOL) 2025-05-28 22:27:55 33.7 L F VM (KT/V MEAN VOL) 2025-05-28 22:27:55 526.7 F WEIGHT (KG) 2025-05-28 22:27:55 60 kg F Residual kt/v 2025-05-28 22:27:55 N/A F KT/V PRESCRIBED 2025-05-28 22:27:55 1.88 F Total Kt/V 2025-05-28 22:27:55 N/A F nPCR 2025-05-28 22:27:55 1.34 G/KG/D F AMPUTATE FACTOR 2025-05-28 22:27:55 0 F spKt/V 2025-05-28 22:27:55 1.26 F TBW ([place]) 2025-05-28 22:27:55 30.97 Liters F eKt/V 2025-05-28 22:27:55 1.03 F stdKt/V (DIAL) 2025-05-28 22:27:55 2.64 F Std Renal KT/V 2025-05-28 22:27:55 F stdKT/V Total 2025-05-28 22:27:55 2.64 F TOTAL HOURS/WEEK DIALYSIS 2025-05-28 22:27:55 12 hrs F BLOOD FLOW-QWB 2025-05-28 22:27:55 359 F CURRENT KRU 2025-05-28 22:27:55 F Urea nitrogen [Mass/volume] in Serum or Plasma 2025-05-28 22:26:17 48 mg/dL F 9.0-23.0 Urea nitrogen [Mass/volume] in Serum or Plasma --post dialysis 2025-05-28 20:29:12 16 mg/dL F 9.0-23.0 PATIENT AGE 2025-05-27 20:04:12 55 Years F HEIGHT IN INCHES 2025-05-27 20:04:12 67 Inches F WEIGHT (KG) 2025-05-27 20:04:12 60 kg F AMPUTATE FACTOR 2025-05-27 20:04:12 0 F PATIENT AGE 2025-05-27 20:04:12 55 Years F HEIGHT IN INCHES 2025-05-27 20:04:12 67 Inches F WEIGHT (KG) 2025-05-27 20:04:12 60 kg F AMPUTATE FACTOR 2025-05-27 20:04:12 0 F URR% 2025-05-24 01:13:16 55 % F DIALYZER FLOW-QD 2025-05-24 01:13:16 763 mL/min F Dialyzer JEANINE 2025-05-24 01:13:16 1218 Calc F LENGTH OF DIALYSIS 2025-05-24 01:13:16 185 min F PATIENT AGE 2025-05-24 01:13:16 55 Years F WEIGHT - POST DAY 1 2025-05-24 01:13:16 60 kg F BSA ANAND 2025-05-24 01:13:16 1.7 sq m F WEIGHT - PRE DAY 1 2025-05-24 01:13:16 61.3 kg F HEIGHT IN INCHES 2025-05-24 01:13:16 67 Inches F WEIGHT (KG) 2025-05-24 01:13:16 60 kg F PRESCRIBED DAYS/WEEK 2025-05-24 01:13:16 3 Day/Wk F VT (KT/V TX VOL) 2025-05-24 01:13:16 61.8 L F VM (KT/V MEAN VOL) 2025-05-24 01:13:16 526.7 F Residual kt/v 2025-05-24 01:13:16 F Unable to calculate: Post BUN lab result is unknown KT/V PRESCRIBED 2025-05-24 01:13:16 2.26 F Total Kt/V 2025-05-24 01:13:16 0.89 F nPCR 2025-05-24 01:13:16 0.89 G/KG/D F AMPUTATE FACTOR 2025-05-24 01:13:16 0 F spKt/V 2025-05-24 01:13:16 0.89 F TBW ([place]) 2025-05-24 01:13:16 30.89 Liters F eKt/V 2025-05-24 01:13:16 0.76 F stdKt/V (DIAL) 2025-05-24 01:13:16 N/A F Std Renal KT/V 2025-05-24 01:13:16 N/A F stdKT/V Total 2025-05-24 01:13:16 N/A F TOTAL HOURS/WEEK DIALYSIS 2025-05-24 01:13:16 10 hrs F BLOOD FLOW-QWB 2025-05-24 01:13:16 414 F CURRENT KRU 2025-05-24 01:13:16 F Unable to calculate: Post BUN lab result is unknown URR% 2025-05-24 01:13:16 55 % F DIALYZER FLOW-QD 2025-05-24 01:13:16 763 mL/min F Dialyzer JEANINE 2025-05-24 01:13:16 1218 Calc F LENGTH OF DIALYSIS 2025-05-24 01:13:16 185 min F PATIENT AGE 2025-05-24 01:13:16 55 Years F BSA ANAND 2025-05-24 01:13:16 1.7 sq m F WEIGHT - POST DAY 1 2025-05-24 01:13:16 60 kg F WEIGHT - PRE DAY 1 2025-05-24 01:13:16 61.3 kg F HEIGHT IN INCHES 2025-05-24 01:13:16 67 Inches F WEIGHT (KG) 2025-05-24 01:13:16 60 kg F PRESCRIBED DAYS/WEEK 2025-05-24 01:13:16 3 Day/Wk F VT (KT/V TX VOL) 2025-05-24 01:13:16 61.8 L F VM (KT/V MEAN VOL) 2025-05-24 01:13:16 526.7 F Residual kt/v 2025-05-24 01:13:16 F Unable to calculate: Post BUN lab result is unknown KT/V PRESCRIBED 2025-05-24 01:13:16 2.26 F Total Kt/V 2025-05-24 01:13:16 0.89 F nPCR 2025-05-24 01:13:16 0.89 G/KG/D F AMPUTATE FACTOR 2025-05-24 01:13:16 0 F spKt/V 2025-05-24 01:13:16 0.89 F TBW ([facility]) 2025-05-24 01:13:16 30.89 Liters F eKt/V 2025-05-24 01:13:16 0.76 F stdKt/V (DIAL) 2025-05-24 01:13:16 N/A F Std Renal KT/V 2025-05-24 01:13:16 N/A F TOTAL HOURS/WEEK DIALYSIS 2025-05-24 01:13:16 10 hrs F CURRENT KRU 2025-05-24 01:13:16 F Unable to calculate: Post BUN lab result is unknown stdKT/V Total 2025-05-24 01:13:16 N/A F BLOOD FLOW-QWB 2025-05-24 01:13:16 414 F Urea nitrogen [Mass/volume] in Serum or Plasma --post dialysis 2025-05-24 01:11:21 27 mg/dL F 9.0-23.0 Urea nitrogen [Mass/volume] in Serum or Plasma --post dialysis 2025-05-24 01:11:21 27 mg/dL F 9.0-23.0 Urea nitrogen [Mass/volume] in Serum or Plasma 2025-05-23 23:13:24 60 mg/dL F 9.0-23.0 Urea nitrogen [Mass/volume] in Serum or Plasma 2025-05-23 23:13:24 60 mg/dL F 9.0-23.0 DIALYZER FLOW-QD 2025-05-16 14:03:05 816 mL/min F Dialyzer JEANINE 2025-05-16 14:03:05 1218 Calc F URR% 2025-05-16 14:03:05 57 % F LENGTH OF DIALYSIS 2025-05-16 14:03:05 210 min F PATIENT AGE 2025-05-16 14:03:05 54 Years F BSA ANAND 2025-05-16 14:03:05 1.7 sq m F WEIGHT - POST DAY 1 2025-05-16 14:03:05 61.9 kg F WEIGHT - PRE DAY 1 2025-05-16 14:03:05 63.1 kg F WEIGHT (KG) 2025-05-16 14:03:05 60 kg F PRESCRIBED DAYS/WEEK 2025-05-16 14:03:05 3 Day/Wk F HEIGHT IN INCHES 2025-05-16 14:03:05 67 Inches F VT (KT/V TX VOL) 2025-05-16 14:03:05 68.8 L F VM (KT/V MEAN VOL) 2025-05-16 14:03:05 526.7 F Residual kt/v 2025-05-16 14:03:05 F KT/V PRESCRIBED 2025-05-16 14:03:05 2.56 F Total Kt/V 2025-05-16 14:03:05 0.95 F nPCR 2025-05-16 14:03:05 1.07 G/KG/D F AMPUTATE FACTOR 2025-05-16 14:03:05 0 F TBW ([facility]) 2025-05-16 14:03:05 31.36 Liters F spKt/V 2025-05-16 14:03:05 0.95 F stdKt/V (DIAL) 2025-05-16 14:03:05 N/A F eKt/V 2025-05-16 14:03:05 0.83 F Std Renal KT/V 2025-05-16 14:03:05 N/A F stdKT/V Total 2025-05-16 14:03:05 N/A F BLOOD FLOW-QWB 2025-05-16 14:03:05 450 F TOTAL HOURS/WEEK DIALYSIS 2025-05-16 14:03:05 8 hrs F CURRENT KRU 2025-05-16 14:03:05 F Urea nitrogen [Mass/volume] in Serum or Plasma 2025-05-16 14:01:10 68 mg/dL F 9.0-23.0 Urea nitrogen [Mass/volume] in Serum or Plasma --post dialysis 2025-05-16 13:54:17 29 mg/dL F 9.0-23.0 URR% 2025-05-09 19:08:53 61 % F DIALYZER FLOW-QD 2025-05-09 19:08:53 800 mL/min F Dialyzer JEANINE 2025-05-09 19:08:53 1218 Calc F LENGTH OF DIALYSIS 2025-05-09 19:08:53 215 min F PATIENT AGE 2025-05-09 19:08:53 54 Years F WEIGHT - POST DAY 1 2025-05-09 19:08:53 59.7 kg F BSA ANAND 2025-05-09 19:08:53 1.7 sq m F WEIGHT - PRE DAY 1 2025-05-09 19:08:53 62.6 kg F HEIGHT IN INCHES 2025-05-09 19:08:53 67 Inches F PRESCRIBED DAYS/WEEK 2025-05-09 19:08:53 3 Day/Wk F VT (KT/V TX VOL) 2025-05-09 19:08:53 61.7 L F WEIGHT (KG) 2025-05-09 19:08:53 60 kg F VM (KT/V MEAN VOL) 2025-05-09 19:08:53 526.7 F Residual kt/v 2025-05-09 19:08:53 F KT/V PRESCRIBED 2025-05-09 19:08:53 2.63 F Total Kt/V 2025-05-09 19:08:53 1.03 F nPCR 2025-05-09 19:08:53 0.42 G/KG/D F AMPUTATE FACTOR 2025-05-09 19:08:53 0 F TBW ([facility]) 2025-05-09 19:08:53 30.82 Liters F spKt/V 2025-05-09 19:08:53 1.03 F eKt/V 2025-05-09 19:08:53 0.9 F stdKT/V Total 2025-05-09 19:08:53 N/A F TOTAL HOURS/WEEK DIALYSIS 2025-05-09 19:08:53 3 hrs F Std Renal KT/V 2025-05-09 19:08:53 N/A F stdKt/V (DIAL) 2025-05-09 19:08:53 N/A F BLOOD FLOW-QWB 2025-05-09 19:08:53 408 F CURRENT KRU 2025-05-09 19:08:53 F DIALYZER FLOW-QD 2025-05-09 19:08:53 800 mL/min F URR% 2025-05-09 19:08:53 61 % F Dialyzer JEANINE 2025-05-09 19:08:53 1218 Calc F LENGTH OF DIALYSIS 2025-05-09 19:08:53 215 min F PATIENT AGE 2025-05-09 19:08:53 54 Years F BSA ANAND 2025-05-09 19:08:53 1.7 sq m F WEIGHT - POST DAY 1 2025-05-09 19:08:53 59.7 kg F WEIGHT - PRE DAY 1 2025-05-09 19:08:53 62.6 kg F HEIGHT IN INCHES 2025-05-09 19:08:53 67 Inches F WEIGHT (KG) 2025-05-09 19:08:53 60 kg F VT (KT/V TX VOL) 2025-05-09 19:08:53 61.7 L F PRESCRIBED DAYS/WEEK 2025-05-09 19:08:53 3 Day/Wk F VM (KT/V MEAN VOL) 2025-05-09 19:08:53 526.7 F Residual kt/v 2025-05-09 19:08:53 F KT/V PRESCRIBED 2025-05-09 19:08:53 2.63 F Total Kt/V 2025-05-09 19:08:53 1.03 F nPCR 2025-05-09 19:08:53 0.42 G/KG/D F TBW ([facility]) 2025-05-09 19:08:53 30.82 Liters F AMPUTATE FACTOR 2025-05-09 19:08:53 0 F spKt/V 2025-05-09 19:08:53 1.03 F eKt/V 2025-05-09 19:08:53 0.9 F stdKt/V (DIAL) 2025-05-09 19:08:53 N/A F Std Renal KT/V 2025-05-09 19:08:53 N/A F TOTAL HOURS/WEEK DIALYSIS 2025-05-09 19:08:53 3 hrs F stdKT/V Total 2025-05-09 19:08:53 N/A F BLOOD FLOW-QWB 2025-05-09 19:08:53 408 F CURRENT KRU 2025-05-09 19:08:53 F Urea nitrogen [Mass/volume] in Serum or Plasma 2025-05-09 19:07:18 64 mg/dL F 9.0-23.0 Creatinine [Mass/volume] in Serum or Plasma 2025-05-09 19:07:18 4.38 mg/dL F 0.5-1.1 Urea nitrogen [Mass/volume] in Serum or Plasma 2025-05-09 19:07:18 64 mg/dL F 9.0-23.0 Creatinine [Mass/volume] in Serum or Plasma 2025-05-09 19:07:18 4.38 mg/dL F 0.5-1.1 Urea nitrogen [Mass/volume] in Serum or Plasma --post dialysis 2025-05-09 15:22:20 25 mg/dL F 9.0-23.0 Urea nitrogen [Mass/volume] in Serum or Plasma --post dialysis 2025-05-09 15:22:20 25 mg/dL F 9.0-23.0 URR% 2025-05-02 19:47:59 46 % F DIALYZER FLOW-QD 2025-05-02 19:47:59 800 mL/min F Dialyzer JEANINE 2025-05-02 19:47:59 1328 Calc F LENGTH OF DIALYSIS 2025-05-02 19:47:59 118 min F BSA ANAND 2025-05-02 19:47:59 1.7 sq m F PATIENT AGE 2025-05-02 19:47:59 54 Years F WEIGHT - POST DAY 1 2025-05-02 19:47:59 60.9 kg F WEIGHT - PRE DAY 1 2025-05-02 19:47:59 61.4 kg F WEIGHT (KG) 2025-05-02 19:47:59 60 kg F HEIGHT IN INCHES 2025-05-02 19:47:59 67 Inches F PRESCRIBED DAYS/WEEK 2025-05-02 19:47:59 3 Day/Wk F VT (KT/V TX VOL) 2025-05-02 19:47:59 57.6 L F VM (KT/V MEAN VOL) 2025-05-02 19:47:59 62.8 F KT/V PRESCRIBED 2025-05-02 19:47:59 1.47 F Total Kt/V 2025-05-02 19:47:59 0.65 F Residual kt/v 2025-05-02 19:47:59 F Unable to calculate: Post BUN lab result is unknown AMPUTATE FACTOR 2025-05-02 19:47:59 0 F nPCR 2025-05-02 19:47:59 0.74 G/KG/D F TBW ([facility]) 2025-05-02 19:47:59 31.11 Liters F spKt/V 2025-05-02 19:47:59 0.65 F eKt/V 2025-05-02 19:47:59 0.53 F Std Renal KT/V 2025-05-02 19:47:59 N/A F stdKT/V Total 2025-05-02 19:47:59 N/A F stdKt/V (DIAL) 2025-05-02 19:47:59 N/A F TOTAL HOURS/WEEK DIALYSIS 2025-05-02 19:47:59 9 hrs F BLOOD FLOW-QWB 2025-05-02 19:47:59 450 F CURRENT KRU 2025-05-02 19:47:59 F Unable to calculate: Post BUN lab result is unknown URR% 2025-05-02 19:47:59 46 % F DIALYZER FLOW-QD 2025-05-02 19:47:59 800 mL/min F LENGTH OF DIALYSIS 2025-05-02 19:47:59 118 min F Dialyzer JEANINE 2025-05-02 19:47:59 1328 Calc F PATIENT AGE 2025-05-02 19:47:59 54 Years F BSA ANAND 2025-05-02 19:47:59 1.7 sq m F WEIGHT - POST DAY 1 2025-05-02 19:47:59 60.9 kg F WEIGHT - PRE DAY 1 2025-05-02 19:47:59 61.4 kg F HEIGHT IN INCHES 2025-05-02 19:47:59 67 Inches F WEIGHT (KG) 2025-05-02 19:47:59 60 kg F VT (KT/V TX VOL) 2025-05-02 19:47:59 57.6 L F VM (KT/V MEAN VOL) 2025-05-02 19:47:59 62.8 F PRESCRIBED DAYS/WEEK 2025-05-02 19:47:59 3 Day/Wk F Residual kt/v 2025-05-02 19:47:59 F Unable to calculate: Post BUN lab result is unknown KT/V PRESCRIBED 2025-05-02 19:47:59 1.47 F Total Kt/V 2025-05-02 19:47:59 0.65 F AMPUTATE FACTOR 2025-05-02 19:47:59 0 F nPCR 2025-05-02 19:47:59 0.74 G/KG/D F spKt/V 2025-05-02 19:47:59 0.65 F TBW ([facility]) 2025-05-02 19:47:59 31.11 Liters F eKt/V 2025-05-02 19:47:59 0.53 F stdKt/V (DIAL) 2025-05-02 19:47:59 N/A F stdKT/V Total 2025-05-02 19:47:59 N/A F Std Renal KT/V 2025-05-02 19:47:59 N/A F TOTAL HOURS/WEEK DIALYSIS 2025-05-02 19:47:59 9 hrs F BLOOD FLOW-QWB 2025-05-02 19:47:59 450 F CURRENT KRU 2025-05-02 19:47:59 F Unable to calculate: Post BUN lab result is unknown Urea nitrogen [Mass/volume] in Serum or Plasma --post dialysis 2025-05-02 19:46:18 32 mg/dL F 9.0-23.0 Urea nitrogen [Mass/volume] in Serum or Plasma --post dialysis 2025-05-02 19:46:18 32 mg/dL F 9.0-23.0 Urea nitrogen [Mass/volume] in Serum or Plasma 2025-05-02 18:10:13 59 mg/dL F 9.0-23.0 Urea nitrogen [Mass/volume] in Serum or Plasma 2025-05-02 18:10:13 59 mg/dL F 9.0-23.0 Creatinine [Mass/volume] in Serum or Plasma 2025-05-02 13:55:22 4.04 mg/dL F 0.55-1.02 Creatinine [Mass/volume] in Serum or Plasma 2025-05-02 13:55:22 4.04 mg/dL F 0.55-1.02 Creatinine [Mass/volume] in Serum or Plasma 2025-05-02 13:55:22 4.04 mg/dL F 0.55-1.02 URR% 2025-04-30 13:42:06 43 % F DIALYZER FLOW-QD 2025-04-30 13:42:06 800 mL/min F Dialyzer JEANINE 2025-04-30 13:42:06 1328 Calc F LENGTH OF DIALYSIS 2025-04-30 13:42:06 210 min F PATIENT AGE 2025-04-30 13:42:06 54 Years F WEIGHT - POST DAY 1 2025-04-30 13:42:06 60.5 kg F BSA ANAND 2025-04-30 13:42:06 1.7 sq m F WEIGHT - PRE DAY 1 2025-04-30 13:42:06 63 kg F HEIGHT IN INCHES 2025-04-30 13:42:06 67 Inches F WEIGHT (KG) 2025-04-30 13:42:06 60 kg F VT (KT/V TX VOL) 2025-04-30 13:42:06 94.8 L F PRESCRIBED DAYS/WEEK 2025-04-30 13:42:06 3 Day/Wk F VM (KT/V MEAN VOL) 2025-04-30 13:42:06 64.6 F KT/V PRESCRIBED 2025-04-30 13:42:06 2.62 F Residual kt/v 2025-04-30 13:42:06 F Unable to calculate: Post BUN lab result is unknown Total Kt/V 2025-04-30 13:42:06 0.62 F TBW ([facility]) 2025-04-30 13:42:06 31.01 Liters F nPCR 2025-04-30 13:42:06 0.44 G/KG/D F AMPUTATE FACTOR 2025-04-30 13:42:06 0 F spKt/V 2025-04-30 13:42:06 0.62 F eKt/V 2025-04-30 13:42:06 0.56 F stdKt/V (DIAL) 2025-04-30 13:42:06 N/A F stdKT/V Total 2025-04-30 13:42:06 N/A F Std Renal KT/V 2025-04-30 13:42:06 N/A F TOTAL HOURS/WEEK DIALYSIS 2025-04-30 13:42:06 7 hrs F BLOOD FLOW-QWB 2025-04-30 13:42:06 361 F CURRENT KRU 2025-04-30 13:42:06 F Unable to calculate: Post BUN lab result is unknown URR% 2025-04-30 13:42:06 43 % F DIALYZER FLOW-QD 2025-04-30 13:42:06 800 mL/min F Dialyzer JEANINE 2025-04-30 13:42:06 1328 Calc F PATIENT AGE 2025-04-30 13:42:06 54 Years F LENGTH OF DIALYSIS 2025-04-30 13:42:06 210 min F BSA ANAND 2025-04-30 13:42:06 1.7 sq m F WEIGHT - PRE DAY 1 2025-04-30 13:42:06 63 kg F WEIGHT - POST DAY 1 2025-04-30 13:42:06 60.5 kg F HEIGHT IN INCHES 2025-04-30 13:42:06 67 Inches F PRESCRIBED DAYS/WEEK 2025-04-30 13:42:06 3 Day/Wk F WEIGHT (KG) 2025-04-30 13:42:06 60 kg F VT (KT/V TX VOL) 2025-04-30 13:42:06 94.8 L F VM (KT/V MEAN VOL) 2025-04-30 13:42:06 64.6 F KT/V PRESCRIBED 2025-04-30 13:42:06 2.62 F Residual kt/v 2025-04-30 13:42:06 F Unable to calculate: Post BUN lab result is unknown Total Kt/V 2025-04-30 13:42:06 0.62 F nPCR 2025-04-30 13:42:06 0.44 G/KG/D F AMPUTATE FACTOR 2025-04-30 13:42:06 0 F TBW ([facility]) 2025-04-30 13:42:06 31.01 Liters F spKt/V 2025-04-30 13:42:06 0.62 F eKt/V 2025-04-30 13:42:06 0.56 F stdKt/V (DIAL) 2025-04-30 13:42:06 N/A F Std Renal KT/V 2025-04-30 13:42:06 N/A F stdKT/V Total 2025-04-30 13:42:06 N/A F TOTAL HOURS/WEEK DIALYSIS 2025-04-30 13:42:06 7 hrs F CURRENT KRU 2025-04-30 13:42:06 F Unable to calculate: Post BUN lab result is unknown BLOOD FLOW-QWB 2025-04-30 13:42:06 361 F Urea nitrogen [Mass/volume] in Serum or Plasma --post dialysis 2025-04-30 13:40:15 28 mg/dL F 9.0-23.0 Urea nitrogen [Mass/volume] in Serum or Plasma --post dialysis 2025-04-30 13:40:15 28 mg/dL F 9.0-23.0 Urea nitrogen [Mass/volume] in Serum or Plasma 2025-04-30 13:23:13 49 mg/dL F 9.0-23.0 Urea nitrogen [Mass/volume] in Serum or Plasma 2025-04-30 13:23:13 49 mg/dL F 9.0-23.0 URR% 2025-04-27 15:45:09 56 % F DIALYZER FLOW-QD 2025-04-27 15:45:09 800 mL/min F Dialyzer JEANINE 2025-04-27 15:45:09 1328 Calc F LENGTH OF DIALYSIS 2025-04-27 15:45:09 212 min F PATIENT AGE 2025-04-27 15:45:09 54 Years F WEIGHT - POST DAY 1 2025-04-27 15:45:09 61.6 kg F BSA ANAND 2025-04-27 15:45:09 1.7 sq m F WEIGHT - PRE DAY 1 2025-04-27 15:45:09 64.5 kg F HEIGHT IN INCHES 2025-04-27 15:45:09 67 Inches F WEIGHT (KG) 2025-04-27 15:45:09 60 kg F PRESCRIBED DAYS/WEEK 2025-04-27 15:45:09 3 Day/Wk F VT (KT/V TX VOL) 2025-04-27 15:45:09 72.2 L F VM (KT/V MEAN VOL) 2025-04-27 15:45:09 64.6 F Residual kt/v 2025-04-27 15:45:09 F KT/V PRESCRIBED 2025-04-27 15:45:09 2.65 F Total Kt/V 2025-04-27 15:45:09 0.9 F nPCR 2025-04-27 15:45:09 0.35 G/KG/D F AMPUTATE FACTOR 2025-04-27 15:45:09 0 F spKt/V 2025-04-27 15:45:09 0.9 F eKt/V 2025-04-27 15:45:09 0.79 F stdKt/V (DIAL) 2025-04-27 15:45:09 N/A F TBW ([facility]) 2025-04-27 15:45:09 31.29 Liters F Std Renal KT/V 2025-04-27 15:45:09 N/A F stdKT/V Total 2025-04-27 15:45:09 N/A F TOTAL HOURS/WEEK DIALYSIS 2025-04-27 15:45:09 3 hrs F BLOOD FLOW-QWB 2025-04-27 15:45:09 419 F CURRENT KRU 2025-04-27 15:45:09 F Urea nitrogen [Mass/volume] in Serum or Plasma 2025-04-27 15:43:20 50 mg/dL F 9.0-23.0 Urea nitrogen [Mass/volume] in Serum or Plasma --post dialysis 2025-04-27 15:37:16 22 mg/dL F 9.0-23.0 DIALYZER FLOW-QD 2025-04-18 20:12:33 755 mL/min F URR% 2025-04-18 20:12:33 38 % F Dialyzer JEANINE 2025-04-18 20:12:33 1328 Calc F LENGTH OF DIALYSIS 2025-04-18 20:12:33 214 min F PATIENT AGE 2025-04-18 20:12:33 54 Years F BSA ANAND 2025-04-18 20:12:33 1.7 sq m F WEIGHT - POST DAY 1 2025-04-18 20:12:33 64.5 kg F HEIGHT IN INCHES 2025-04-18 20:12:33 67 Inches F WEIGHT - PRE DAY 1 2025-04-18 20:12:33 67.6 kg F WEIGHT (KG) 2025-04-18 20:12:33 60 kg F PRESCRIBED DAYS/WEEK 2025-04-18 20:12:33 3 Day/Wk F VM (KT/V MEAN VOL) 2025-04-18 20:12:33 62 F VT (KT/V TX VOL) 2025-04-18 20:12:33 96.4 L F Residual kt/v 2025-04-18 20:12:33 F Total Kt/V 2025-04-18 20:12:33 0.53 F KT/V PRESCRIBED 2025-04-18 20:12:33 2.67 F nPCR 2025-04-18 20:12:33 0.43 G/KG/D F AMPUTATE FACTOR 2025-04-18 20:12:33 0 F TBW ([facility]) 2025-04-18 20:12:33 32 Liters F spKt/V 2025-04-18 20:12:33 0.53 F eKt/V 2025-04-18 20:12:33 0.49 F stdKt/V (DIAL) 2025-04-18 20:12:33 N/A F Std Renal KT/V 2025-04-18 20:12:33 N/A F stdKT/V Total 2025-04-18 20:12:33 N/A F TOTAL HOURS/WEEK DIALYSIS 2025-04-18 20:12:33 7 hrs F BLOOD FLOW-QWB 2025-04-18 20:12:33 289 F CURRENT KRU 2025-04-18 20:12:33 F Urea nitrogen [Mass/volume] in Serum or Plasma 2025-04-18 20:10:12 56 mg/dL F 9.0-23.0 Urea nitrogen [Mass/volume] in Serum or Plasma --post dialysis 2025-04-18 15:30:13 35 mg/dL F 9.0-23.0 URR% 2025-04-11 13:23:02 56 % F DIALYZER FLOW-QD 2025-04-11 13:23:02 800 mL/min F Dialyzer JEANINE 2025-04-11 13:23:02 1328 Calc F LENGTH OF DIALYSIS 2025-04-11 13:23:02 210 min F PATIENT AGE 2025-04-11 13:23:02 54 Years F BSA ANAND 2025-04-11 13:23:02 1.7 sq m F WEIGHT - PRE DAY 1 2025-04-11 13:23:02 68.9 kg F HEIGHT IN INCHES 2025-04-11 13:23:02 67 Inches F WEIGHT - POST DAY 1 2025-04-11 13:23:02 66.2 kg F WEIGHT (KG) 2025-04-11 13:23:02 60 kg F PRESCRIBED DAYS/WEEK 2025-04-11 13:23:02 3 Day/Wk F VT (KT/V TX VOL) 2025-04-11 13:23:02 70.7 L F VM (KT/V MEAN VOL) 2025-04-11 13:23:02 62 F Residual kt/v 2025-04-11 13:23:02 F Total Kt/V 2025-04-11 13:23:02 0.9 F KT/V PRESCRIBED 2025-04-11 13:23:02 2.62 F nPCR 2025-04-11 13:23:02 0.68 G/KG/D F AMPUTATE FACTOR 2025-04-11 13:23:02 0 F TBW ([facility]) 2025-04-11 13:23:02 32.42 Liters F spKt/V 2025-04-11 13:23:02 0.9 F eKt/V 2025-04-11 13:23:02 0.79 F Std Renal KT/V 2025-04-11 13:23:02 N/A F stdKt/V (DIAL) 2025-04-11 13:23:02 N/A F stdKT/V Total 2025-04-11 13:23:02 N/A F TOTAL HOURS/WEEK DIALYSIS 2025-04-11 13:23:02 6 hrs F BLOOD FLOW-QWB 2025-04-11 13:23:02 411 F CURRENT KRU 2025-04-11 13:23:02 F Urea nitrogen [Mass/volume] in Serum or Plasma 2025-04-11 13:21:16 81 mg/dL F 9.0-23.0 Urea nitrogen [Mass/volume] in Serum or Plasma --post dialysis 2025-04-11 12:57:14 36 mg/dL F 9.0-23.0 WEIGHT - POST DAY 1 2025-03-27 18:29:56 60 kg F Total Kt/V 2025-03-27 18:29:56 1.11 F BLOOD FLOW-QWB 2025-03-27 18:29:56 450 F TBW ([facility]) 2025-03-27 18:29:56 30.89 Liters F spKt/V 2025-03-27 18:29:56 1.11 F Residual kt/v 2025-03-27 18:29:56 F KT/V PRESCRIBED 2025-03-27 18:29:56 2.52 F Std Renal KT/V 2025-03-27 18:29:56 N/A F HEIGHT IN INCHES 2025-03-27 18:29:56 67 Inches F CURRENT KRU 2025-03-27 18:29:56 F eKt/V 2025-03-27 18:29:56 0.95 F LENGTH OF DIALYSIS 2025-03-27 18:29:56 202 min F DIALYZER FLOW-QD 2025-03-27 18:29:56 800 mL/min F Dialyzer JEANINE 2025-03-27 18:29:56 1328 Calc F AMPUTATE FACTOR 2025-03-27 18:29:56 0 F URR% 2025-03-27 18:29:56 63 % F WEIGHT - PRE DAY 1 2025-03-27 18:29:56 62.4 kg F nPCR 2025-03-27 18:29:56 0.8 G/KG/D F VT (KT/V TX VOL) 2025-03-27 18:29:56 57.9 L F stdKT/V Total 2025-03-27 18:29:56 N/A F WEIGHT (KG) 2025-03-27 18:29:56 60 kg F TOTAL HOURS/WEEK DIALYSIS 2025-03-27 18:29:56 10 hrs F VM (KT/V MEAN VOL) 2025-03-27 18:29:56 55.3 F stdKt/V (DIAL) 2025-03-27 18:29:56 N/A F PATIENT AGE 2025-03-27 18:29:56 54 Years F PRESCRIBED DAYS/WEEK 2025-03-27 18:29:56 3 Day/Wk F BSA ANAND 2025-03-27 18:29:56 1.7 sq m F Urea nitrogen [Mass/volume] in Serum or Plasma 2025-03-27 18:28:15 56 mg/dL F 9.0-23.0 Urea nitrogen [Mass/volume] in Serum or Plasma --post dialysis 2025-03-26 12:37:14 21 mg/dL F 9.0-23.0 nPCR 2025-03-19 13:08:24 0.76 G/KG/D F eKt/V 2025-03-19 13:08:24 0.99 F Total Kt/V 2025-03-19 13:08:24 1.15 F Std Renal KT/V 2025-03-19 13:08:24 N/A F PRESCRIBED DAYS/WEEK 2025-03-19 13:08:24 3 Day/Wk F VT (KT/V TX VOL) 2025-03-19 13:08:24 58.8 L F DIALYZER FLOW-QD 2025-03-19 13:08:24 800 mL/min F WEIGHT - POST DAY 1 2025-03-19 13:08:24 61.3 kg F stdKt/V (DIAL) 2025-03-19 13:08:24 N/A F Residual kt/v 2025-03-19 13:08:24 F Unable to calculate: Post BUN lab result is unknown HEIGHT IN INCHES 2025-03-19 13:08:24 67 Inches F KT/V PRESCRIBED 2025-03-19 13:08:24 2.65 F stdKT/V Total 2025-03-19 13:08:24 N/A F LENGTH OF DIALYSIS 2025-03-19 13:08:24 212 min F PATIENT AGE 2025-03-19 13:08:24 54 Years F WEIGHT (KG) 2025-03-19 13:08:24 60 kg F BSA ANAND 2025-03-19 13:08:24 1.7 sq m F WEIGHT - PRE DAY 1 2025-03-19 13:08:24 63.9 kg F spKt/V 2025-03-19 13:08:24 1.15 F URR% 2025-03-19 13:08:24 63 % F Dialyzer JEANINE 2025-03-19 13:08:24 1328 Calc F TOTAL HOURS/WEEK DIALYSIS 2025-03-19 13:08:24 10 hrs F AMPUTATE FACTOR 2025-03-19 13:08:24 0 F VM (KT/V MEAN VOL) 2025-03-19 13:08:24 54.5 F CURRENT KRU 2025-03-19 13:08:24 F Unable to calculate: Post BUN lab result is unknown [facility] ([facility]) 2025-03-19 13:08:24 31.21 Liters F BLOOD FLOW-QWB 2025-03-19 13:08:24 450 F Urea nitrogen [Mass/volume] in Serum or Plasma --post dialysis 2025-03-19 13:07:07 19 mg/dL F 9.0-23.0 Urea nitrogen [Mass/volume] in Serum or Plasma 2025-03-19 12:26:12 52 mg/dL F 9.0-23.0 HEIGHT IN INCHES 2025-03-16 16:53:50 67 Inches F DIALYZER FLOW-QD 2025-03-16 16:53:50 800 mL/min F TOTAL HOURS/WEEK DIALYSIS 2025-03-16 16:53:50 9 hrs F PRESCRIBED DAYS/WEEK 2025-03-16 16:53:50 3 Day/Wk F WEIGHT - POST DAY 1 2025-03-16 16:53:50 60 kg F stdKt/V (DIAL) 2025-03-16 16:53:50 N/A F WEIGHT (KG) 2025-03-16 16:53:50 60 kg F TBW ([facility]) 2025-03-16 16:53:50 30.89 Liters F eKt/V 2025-03-16 16:53:50 1.02 F VM (KT/V MEAN VOL) 2025-03-16 16:53:50 53.1 F AMPUTATE FACTOR 2025-03-16 16:53:50 0 F Dialyzer JEANINE 2025-03-16 16:53:50 1328 Calc F nPCR 2025-03-16 16:53:50 0.87 G/KG/D F PATIENT AGE 2025-03-16 16:53:50 54 Years F Total Kt/V 2025-03-16 16:53:50 1.19 F KT/V PRESCRIBED 2025-03-16 16:53:50 2.69 F stdKT/V Total 2025-03-16 16:53:50 N/A F Residual kt/v 2025-03-16 16:53:50 F BLOOD FLOW-QWB 2025-03-16 16:53:50 450 F WEIGHT - PRE DAY 1 2025-03-16 16:53:50 61.1 kg F URR% 2025-03-16 16:53:50 65 % F CURRENT KRU 2025-03-16 16:53:50 F VT (KT/V TX VOL) 2025-03-16 16:53:50 57.5 L F BSA ANAND 2025-03-16 16:53:50 1.7 sq m F Std Renal KT/V 2025-03-16 16:53:50 N/A F spKt/V 2025-03-16 16:53:50 1.19 F LENGTH OF DIALYSIS 2025-03-16 16:53:50 215 min F Urea nitrogen [Mass/volume] in Serum or Plasma 2025-03-16 16:52:13 46 mg/dL F 9.0-23.0 Urea nitrogen [Mass/volume] in Serum or Plasma --post dialysis 2025-03-16 16:25:19 16 mg/dL F 9.0-23.0 Std Renal KT/V 2025-03-14 12:52:39 N/A F Residual kt/v 2025-03-14 12:52:39 F Unable to calculate: Post BUN lab result is unknown stdKT/V Total 2025-03-14 12:52:39 N/A F URR% 2025-03-14 12:52:39 63 % F CURRENT KRU 2025-03-14 12:52:39 F Unable to calculate: Post BUN lab result is unknown stdKt/V (DIAL) 2025-03-14 12:52:39 N/A F WEIGHT - PRE DAY 1 2025-03-14 12:52:39 62.4 kg F TOTAL HOURS/WEEK DIALYSIS 2025-03-14 12:52:39 9 hrs F VT (KT/V TX VOL) 2025-03-14 12:52:39 51.1 L F Total Kt/V 2025-03-14 12:52:39 1.16 F LENGTH OF DIALYSIS 2025-03-14 12:52:39 212 min F TBW ([facility]) 2025-03-14 12:52:39 30.82 Liters F eKt/V 2025-03-14 12:52:39 1 F VM (KT/V MEAN VOL) 2025-03-14 12:52:39 51.6 F nPCR 2025-03-14 12:52:39 0.93 G/KG/D F PATIENT AGE 2025-03-14 12:52:39 54 Years F AMPUTATE FACTOR 2025-03-14 12:52:39 0 F Dialyzer JEANINE 2025-03-14 12:52:39 1328 Calc F HEIGHT IN INCHES 2025-03-14 12:52:39 67 Inches F PRESCRIBED DAYS/WEEK 2025-03-14 12:52:39 3 Day/Wk F BSA ANAND 2025-03-14 12:52:39 1.7 sq m F WEIGHT - POST DAY 1 2025-03-14 12:52:39 59.7 kg F BLOOD FLOW-QWB 2025-03-14 12:52:39 360 F KT/V PRESCRIBED 2025-03-14 12:52:39 2.65 F spKt/V 2025-03-14 12:52:39 1.16 F DIALYZER FLOW-QD 2025-03-14 12:52:39 800 mL/min F WEIGHT (KG) 2025-03-14 12:52:39 60 kg F Urea nitrogen [Mass/volume] in Serum or Plasma --post dialysis 2025-03-14 12:51:07 20 mg/dL F 9.0-23.0 Urea nitrogen [Mass/volume] in Serum or Plasma 2025-03-14 12:24:16 54 mg/dL F 9.0-23.0 DIALYZER FLOW-QD 2025-03-12 14:18:56 750 mL/min F KT/V PRESCRIBED 2025-03-12 14:18:56 2.36 F URR% 2025-03-12 14:18:56 63 % F TBW ([facility]) 2025-03-12 14:18:56 30.87 Liters F PRESCRIBED DAYS/WEEK 2025-03-12 14:18:56 3 Day/Wk F BLOOD FLOW-QWB 2025-03-12 14:18:56 363 F Total Kt/V 2025-03-12 14:18:56 1.12 F stdKT/V Total 2025-03-12 14:18:56 N/A F CURRENT KRU 2025-03-12 14:18:56 F Unable to calculate: Post BUN lab result is unknown WEIGHT - PRE DAY 1 2025-03-12 14:18:56 62.1 kg F VM (KT/V MEAN VOL) 2025-03-12 14:18:56 51.8 F TOTAL HOURS/WEEK DIALYSIS 2025-03-12 14:18:56 9 hrs F spKt/V 2025-03-12 14:18:56 1.12 F Residual kt/v 2025-03-12 14:18:56 F Unable to calculate: Post BUN lab result is unknown PATIENT AGE 2025-03-12 14:18:56 54 Years F LENGTH OF DIALYSIS 2025-03-12 14:18:56 189 min F WEIGHT (KG) 2025-03-12 14:18:56 60 kg F Std Renal KT/V 2025-03-12 14:18:56 N/A F BSA ANAND 2025-03-12 14:18:56 1.7 sq m F Dialyzer JEANINE 2025-03-12 14:18:56 1328 Calc F AMPUTATE FACTOR 2025-03-12 14:18:56 0 F VT (KT/V TX VOL) 2025-03-12 14:18:56 46.9 L F stdKt/V (DIAL) 2025-03-12 14:18:56 N/A F eKt/V 2025-03-12 14:18:56 0.95 F nPCR 2025-03-12 14:18:56 0.87 G/KG/D F WEIGHT - POST DAY 1 2025-03-12 14:18:56 59.9 kg F HEIGHT IN INCHES 2025-03-12 14:18:56 67 Inches F Urea nitrogen [Mass/volume] in Serum or Plasma --post dialysis 2025-03-12 14:17:15 23 mg/dL F 9.0-23.0 Urea nitrogen [Mass/volume] in Serum or Plasma 2025-03-12 13:19:18 62 mg/dL F 9.0-23.0 LENGTH OF DIALYSIS 2025-03-09 16:02:01 197 min F HEIGHT IN INCHES 2025-03-09 16:02:01 67 Inches F Std Renal KT/V 2025-03-09 16:02:01 N/A F Dialyzer JEANINE 2025-03-09 16:02:01 1328 Calc F WEIGHT (KG) 2025-03-09 16:02:01 60 kg F eKt/V 2025-03-09 16:02:01 0.88 F stdKt/V (DIAL) 2025-03-09 16:02:01 N/A F BLOOD FLOW-QWB 2025-03-09 16:02:01 382 F WEIGHT - PRE DAY 1 2025-03-09 16:02:01 61 kg F spKt/V 2025-03-09 16:02:01 1.03 F URR% 2025-03-09 16:02:01 59 % F CURRENT KRU 2025-03-09 16:02:01 F Unable to calculate: Post BUN lab result is unknown PATIENT AGE 2025-03-09 16:02:01 54 Years F BSA ANAND 2025-03-09 16:02:01 1.7 sq m F VT (KT/V TX VOL) 2025-03-09 16:02:01 55.5 L F nPCR 2025-03-09 16:02:01 0.73 G/KG/D F stdKT/V Total 2025-03-09 16:02:01 N/A F KT/V PRESCRIBED 2025-03-09 16:02:01 2.46 F PRESCRIBED DAYS/WEEK 2025-03-09 16:02:01 3 Day/Wk F WEIGHT - POST DAY 1 2025-03-09 16:02:01 57.8 kg F VM (KT/V MEAN VOL) 2025-03-09 16:02:01 53.5 F TBW ([facility]) 2025-03-09 16:02:01 30.35 Liters F DIALYZER FLOW-QD 2025-03-09 16:02:01 800 mL/min F TOTAL HOURS/WEEK DIALYSIS 2025-03-09 16:02:01 9 hrs F AMPUTATE FACTOR 2025-03-09 16:02:01 0 F Residual kt/v 2025-03-09 16:02:01 F Unable to calculate: Post BUN lab result is unknown Total Kt/V 2025-03-09 16:02:01 1.03 F Urea nitrogen [Mass/volume] in Serum or Plasma --post dialysis 2025-03-09 16:00:11 21 mg/dL F 9.0-23.0 Urea nitrogen [Mass/volume] in Serum or Plasma 2025-03-09 14:43:11 51 mg/dL F 9.0-23.0 AMPUTATE FACTOR 2025-03-05 23:59:31 0 F CURRENT KRU 2025-03-05 23:59:31 F nPCR 2025-03-05 23:59:31 0.68 G/KG/D F VM (KT/V MEAN VOL) 2025-03-05 23:59:31 52.8 F TOTAL HOURS/WEEK DIALYSIS 2025-03-05 23:59:31 6 hrs F WEIGHT (KG) 2025-03-05 23:59:31 57.5 kg F eKt/V 2025-03-05 23:59:31 0.91 F KT/V PRESCRIBED 2025-03-05 23:59:31 2.4 F PRESCRIBED DAYS/WEEK 2025-03-05 23:59:31 3 Day/Wk F spKt/V 2025-03-05 23:59:31 1.06 F Std Renal KT/V 2025-03-05 23:59:31 N/A F PATIENT AGE 2025-03-05 23:59:31 54 Years F TBW ([facility]) 2025-03-05 23:59:31 30.99 Liters F WEIGHT - PRE DAY 1 2025-03-05 23:59:31 62.9 kg F VT (KT/V TX VOL) 2025-03-05 23:59:31 52.7 L F Total Kt/V 2025-03-05 23:59:31 1.06 F BSA ANAND 2025-03-05 23:59:31 1.67 sq m F stdKT/V Total 2025-03-05 23:59:31 N/A F WEIGHT - POST DAY 1 2025-03-05 23:59:31 60.4 kg F HEIGHT IN INCHES 2025-03-05 23:59:31 67 Inches F Dialyzer JEANINE 2025-03-05 23:59:31 1603 Calc F stdKt/V (DIAL) 2025-03-05 23:59:31 N/A F URR% 2025-03-05 23:59:31 61 % F LENGTH OF DIALYSIS 2025-03-05 23:59:31 196 min F DIALYZER FLOW-QD 2025-03-05 23:59:31 800 mL/min F Residual kt/v 2025-03-05 23:59:31 F BLOOD FLOW-QWB 2025-03-05 23:59:31 357 F Urea nitrogen [Mass/volume] in Serum or Plasma 2025-03-05 23:58:11 75 mg/dL F 9.0-23.0 Urea nitrogen [Mass/volume] in Serum or Plasma --post dialysis 2025-03-05 12:19:07 29 mg/dL F 9.0-23.0 WEIGHT (KG) 2025-03-05 06:07:03 57.5 kg F PATIENT AGE 2025-03-05 06:07:03 54 Years F AMPUTATE FACTOR 2025-03-05 06:07:03 0 F HEIGHT IN INCHES 2025-03-05 06:07:03 67 Inches F stdKT/V Total 2025-02-28 20:36:01 N/A F Std Renal KT/V 2025-02-28 20:36:01 N/A F URR% 2025-02-28 20:36:01 60 % F DIALYZER FLOW-QD 2025-02-28 20:36:01 800 mL/min F stdKt/V (DIAL) 2025-02-28 20:36:01 N/A F TBW ([facility]) 2025-02-28 20:36:01 31.04 Liters F Residual kt/v 2025-02-28 20:36:01 F spKt/V 2025-02-28 20:36:01 1.02 F VT (KT/V TX VOL) 2025-02-28 20:36:01 59 L F LENGTH OF DIALYSIS 2025-02-28 20:36:01 197 min F TOTAL HOURS/WEEK DIALYSIS 2025-02-28 20:36:01 6 hrs F nPCR 2025-02-28 20:36:01 0.65 G/KG/D F PATIENT AGE 2025-02-28 20:36:01 54 Years F HEIGHT IN INCHES 2025-02-28 20:36:01 67 Inches F KT/V PRESCRIBED 2025-02-28 20:36:01 2.41 F eKt/V 2025-02-28 20:36:01 0.88 F PRESCRIBED DAYS/WEEK 2025-02-28 20:36:01 3 Day/Wk F CURRENT KRU 2025-02-28 20:36:01 F WEIGHT - POST DAY 1 2025-02-28 20:36:01 60.6 kg F Total Kt/V 2025-02-28 20:36:01 1.02 F VM (KT/V MEAN VOL) 2025-02-28 20:36:01 52.9 F WEIGHT - PRE DAY 1 2025-02-28 20:36:01 62.2 kg F BLOOD FLOW-QWB 2025-02-28 20:36:01 400 F WEIGHT (KG) 2025-02-28 20:36:01 57.5 kg F AMPUTATE FACTOR 2025-02-28 20:36:01 0 F BSA ANAND 2025-02-28 20:36:01 1.67 sq m F Dialyzer JEANINE 2025-02-28 20:36:01 1603 Calc F HEIGHT IN INCHES 2025-02-28 20:36:01 67 Inches F stdKT/V Total 2025-02-28 20:36:01 N/A F WEIGHT - POST DAY 1 2025-02-28 20:36:01 60.6 kg F AMPUTATE FACTOR 2025-02-28 20:36:01 0 F Total Kt/V 2025-02-28 20:36:01 1.02 F Dialyzer JEANINE 2025-02-28 20:36:01 1603 Calc F eKt/V 2025-02-28 20:36:01 0.88 F WEIGHT (KG) 2025-02-28 20:36:01 57.5 kg F PRESCRIBED DAYS/WEEK 2025-02-28 20:36:01 3 Day/Wk F TOTAL HOURS/WEEK DIALYSIS 2025-02-28 20:36:01 6 hrs F DIALYZER FLOW-QD 2025-02-28 20:36:01 800 mL/min F Residual kt/v 2025-02-28 20:36:01 F Unable to calculate: Pre BUN lab result is unknown stdKt/V (DIAL) 2025-02-28 20:36:01 N/A F BSA ANAND 2025-02-28 20:36:01 1.67 sq m F BLOOD FLOW-QWB 2025-02-28 20:36:01 400 F nPCR 2025-02-28 20:36:01 0.65 G/KG/D F CURRENT KRU 2025-02-28 20:36:01 F Unable to calculate: Pre BUN lab result is unknown WEIGHT - PRE DAY 1 2025-02-28 20:36:01 62.2 kg F VM (KT/V MEAN VOL) 2025-02-28 20:36:01 52.9 F VT (KT/V TX VOL) 2025-02-28 20:36:01 59 L F TBW ([facility]) 2025-02-28 20:36:01 31.04 Liters F spKt/V 2025-02-28 20:36:01 1.02 F KT/V PRESCRIBED 2025-02-28 20:36:01 2.41 F PATIENT AGE 2025-02-28 20:36:01 54 Years F LENGTH OF DIALYSIS 2025-02-28 20:36:01 197 min F Std Renal KT/V 2025-02-28 20:36:01 N/A F URR% 2025-02-28 20:36:01 60 % F Creatinine [Mass/volume] in Serum or Plasma 2025-02-28 19:43:20 3.86 mg/dL F 0.5-1.1 Urea nitrogen [Mass/volume] in Serum or Plasma 2025-02-28 19:43:20 48 mg/dL F 9.0-23.0 Creatinine [Mass/volume] in Serum or Plasma 2025-02-28 19:43:20 3.86 mg/dL F 0.5-1.1 Urea nitrogen [Mass/volume] in Serum or Plasma 2025-02-28 19:43:20 48 mg/dL F 9.0-23.0 Urea nitrogen [Mass/volume] in Serum or Plasma --post dialysis 2025-02-28 13:12:12 19 mg/dL F 9.0-23.0 Urea nitrogen [Mass/volume] in Serum or Plasma --post dialysis 2025-02-28 13:12:12 19 mg/dL F 9.0-23.0 BSA ANAND 2025-02-26 13:14:04 1.67 sq m F nPCR 2025-02-26 13:14:04 0.68 G/KG/D F URR% 2025-02-26 13:14:04 62 % F HEIGHT IN INCHES 2025-02-26 13:14:04 67 Inches F WEIGHT (KG) 2025-02-26 13:14:04 57.5 kg F TOTAL HOURS/WEEK DIALYSIS 2025-02-26 13:14:04 6 hrs F VM (KT/V MEAN VOL) 2025-02-26 13:14:04 50.8 F AMPUTATE FACTOR 2025-02-26 13:14:04 0 F stdKt/V (DIAL) 2025-02-26 13:14:04 N/A F Dialyzer JEANINE 2025-02-26 13:14:04 1603 Calc F Total Kt/V 2025-02-26 13:14:04 1.07 F BLOOD FLOW-QWB 2025-02-26 13:14:04 400 F TBW ([facility]) 2025-02-26 13:14:04 31.09 Liters F VT (KT/V TX VOL) 2025-02-26 13:14:04 55.5 L F WEIGHT - PRE DAY 1 2025-02-26 13:14:04 62.3 kg F PRESCRIBED DAYS/WEEK 2025-02-26 13:14:04 3 Day/Wk F WEIGHT - POST DAY 1 2025-02-26 13:14:04 60.8 kg F DIALYZER FLOW-QD 2025-02-26 13:14:04 800 mL/min F stdKT/V Total 2025-02-26 13:14:04 N/A F Std Renal KT/V 2025-02-26 13:14:04 N/A F PATIENT AGE 2025-02-26 13:14:04 54 Years F KT/V PRESCRIBED 2025-02-26 13:14:04 2.37 F LENGTH OF DIALYSIS 2025-02-26 13:14:04 193 min F spKt/V 2025-02-26 13:14:04 1.07 F Residual kt/v 2025-02-26 13:14:04 F eKt/V 2025-02-26 13:14:04 0.91 F CURRENT KRU 2025-02-26 13:14:04 F WEIGHT - POST DAY 1 2025-02-26 13:14:04 60.8 kg F Dialyzer JEANINE 2025-02-26 13:14:04 1603 Calc F TOTAL HOURS/WEEK DIALYSIS 2025-02-26 13:14:04 6 hrs F AMPUTATE FACTOR 2025-02-26 13:14:04 0 F BLOOD FLOW-QWB 2025-02-26 13:14:04 400 F BSA ANAND 2025-02-26 13:14:04 1.67 sq m F VM (KT/V MEAN VOL) 2025-02-26 13:14:04 50.8 F spKt/V 2025-02-26 13:14:04 1.07 F Std Renal KT/V 2025-02-26 13:14:04 N/A F TBW ([facility]) 2025-02-26 13:14:04 31.09 Liters F DIALYZER FLOW-QD 2025-02-26 13:14:04 800 mL/min F nPCR 2025-02-26 13:14:04 0.68 G/KG/D F LENGTH OF DIALYSIS 2025-02-26 13:14:04 193 min F PRESCRIBED DAYS/WEEK 2025-02-26 13:14:04 3 Day/Wk F Residual kt/v 2025-02-26 13:14:04 F Unable to calculate: Post BUN lab result is unknown PATIENT AGE 2025-02-26 13:14:04 54 Years F WEIGHT (KG) 2025-02-26 13:14:04 57.5 kg F Total Kt/V 2025-02-26 13:14:04 1.07 F WEIGHT - PRE DAY 1 2025-02-26 13:14:04 62.3 kg F KT/V PRESCRIBED 2025-02-26 13:14:04 2.37 F HEIGHT IN INCHES 2025-02-26 13:14:04 67 Inches F stdKt/V (DIAL) 2025-02-26 13:14:04 N/A F eKt/V 2025-02-26 13:14:04 0.91 F stdKT/V Total 2025-02-26 13:14:04 N/A F CURRENT KRU 2025-02-26 13:14:04 F Unable to calculate: Post BUN lab result is unknown URR% 2025-02-26 13:14:04 62 % F VT (KT/V TX VOL) 2025-02-26 13:14:04 55.5 L F Urea nitrogen [Mass/volume] in Serum or Plasma --post dialysis 2025-02-26 13:12:20 19 mg/dL F 9.0-23.0 Urea nitrogen [Mass/volume] in Serum or Plasma --post dialysis 2025-02-26 13:12:20 19 mg/dL F 9.0-23.0 Urea nitrogen [Mass/volume] in Serum or Plasma 2025-02-26 13:09:15 50 mg/dL F 9.0-23.0 Urea nitrogen [Mass/volume] in Serum or Plasma 2025-02-26 13:09:15 50 mg/dL F 9.0-23.0 URR% 2025-02-19 14:44:27 68 % F stdKT/V Total 2025-02-19 14:44:27 N/A F Std Renal KT/V 2025-02-19 14:44:27 N/A F nPCR 2025-02-19 14:44:27 0.9 G/KG/D F DIALYZER FLOW-QD 2025-02-19 14:44:27 800 mL/min F WEIGHT - POST DAY 1 2025-02-19 14:44:27 57.5 kg F Total Kt/V 2025-02-19 14:44:27 1.2 F TBW ([facility]) 2025-02-19 14:44:27 30.27 Liters F WEIGHT - PRE DAY 1 2025-02-19 14:44:27 57.7 kg F Dialyzer JEANINE 2025-02-19 14:44:27 1603 Calc F AMPUTATE FACTOR 2025-02-19 14:44:27 0 F BLOOD FLOW-QWB 2025-02-19 14:44:27 375 F PATIENT AGE 2025-02-19 14:44:27 54 Years F TOTAL HOURS/WEEK DIALYSIS 2025-02-19 14:44:27 6 hrs F VT (KT/V TX VOL) 2025-02-19 14:44:27 45.6 L F VM (KT/V MEAN VOL) 2025-02-19 14:44:27 49.3 F BSA ANAND 2025-02-19 14:44:27 1.67 sq m F eKt/V 2025-02-19 14:44:27 1.02 F PRESCRIBED DAYS/WEEK 2025-02-19 14:44:27 3 Day/Wk F spKt/V 2025-02-19 14:44:27 1.2 F LENGTH OF DIALYSIS 2025-02-19 14:44:27 187 min F WEIGHT (KG) 2025-02-19 14:44:27 57.5 kg F stdKt/V (DIAL) 2025-02-19 14:44:27 N/A F Residual kt/v 2025-02-19 14:44:27 F KT/V PRESCRIBED 2025-02-19 14:44:27 2.29 F HEIGHT IN INCHES 2025-02-19 14:44:27 67 Inches F CURRENT KRU 2025-02-19 14:44:27 F HEIGHT IN INCHES 2025-02-19 14:44:27 67 Inches F Std Renal KT/V 2025-02-19 14:44:27 N/A F Dialyzer JEANINE 2025-02-19 14:44:27 1603 Calc F Residual kt/v 2025-02-19 14:44:27 F Unable to calculate: Post BUN lab result is unknown URR% 2025-02-19 14:44:27 68 % F stdKT/V Total 2025-02-19 14:44:27 N/A F TBW ([facility]) 2025-02-19 14:44:27 30.27 Liters F VT (KT/V TX VOL) 2025-02-19 14:44:27 45.6 L F KT/V PRESCRIBED 2025-02-19 14:44:27 2.29 F eKt/V 2025-02-19 14:44:27 1.02 F DIALYZER FLOW-QD 2025-02-19 14:44:27 800 mL/min F BSA ANAND 2025-02-19 14:44:27 1.67 sq m F Total Kt/V 2025-02-19 14:44:27 1.2 F PATIENT AGE 2025-02-19 14:44:27 54 Years F PRESCRIBED DAYS/WEEK 2025-02-19 14:44:27 3 Day/Wk F LENGTH OF DIALYSIS 2025-02-19 14:44:27 187 min F stdKt/V (DIAL) 2025-02-19 14:44:27 N/A F WEIGHT (KG) 2025-02-19 14:44:27 57.5 kg F nPCR 2025-02-19 14:44:27 0.9 G/KG/D F CURRENT KRU 2025-02-19 14:44:27 F Unable to calculate: Post BUN lab result is unknown TOTAL HOURS/WEEK DIALYSIS 2025-02-19 14:44:27 6 hrs F WEIGHT - POST DAY 1 2025-02-19 14:44:27 57.5 kg F VM (KT/V MEAN VOL) 2025-02-19 14:44:27 49.3 F spKt/V 2025-02-19 14:44:27 1.2 F WEIGHT - PRE DAY 1 2025-02-19 14:44:27 57.7 kg F BLOOD FLOW-QWB 2025-02-19 14:44:27 375 F AMPUTATE FACTOR 2025-02-19 14:44:27 0 F HEIGHT IN INCHES 2025-02-19 14:44:27 67 Inches F DIALYZER FLOW-QD 2025-02-19 14:44:27 800 mL/min F TOTAL HOURS/WEEK DIALYSIS 2025-02-19 14:44:27 6 hrs F Residual kt/v 2025-02-19 14:44:27 F PATIENT AGE 2025-02-19 14:44:27 54 Years F KT/V PRESCRIBED 2025-02-19 14:44:27 2.29 F eKt/V 2025-02-19 14:44:27 1.02 F stdKt/V (DIAL) 2025-02-19 14:44:27 N/A F Total Kt/V 2025-02-19 14:44:27 1.2 F PRESCRIBED DAYS/WEEK 2025-02-19 14:44:27 3 Day/Wk F AMPUTATE FACTOR 2025-02-19 14:44:27 0 F VT (KT/V TX VOL) 2025-02-19 14:44:27 45.6 L F CURRENT KRU 2025-02-19 14:44:27 F WEIGHT (KG) 2025-02-19 14:44:27 57.5 kg F LENGTH OF DIALYSIS 2025-02-19 14:44:27 187 min F Std Renal KT/V 2025-02-19 14:44:27 N/A F BLOOD FLOW-QWB 2025-02-19 14:44:27 375 F URR% 2025-02-19 14:44:27 68 % F nPCR 2025-02-19 14:44:27 0.9 G/KG/D F spKt/V 2025-02-19 14:44:27 1.2 F WEIGHT - POST DAY 1 2025-02-19 14:44:27 57.5 kg F VM (KT/V MEAN VOL) 2025-02-19 14:44:27 49.3 F BSA ANAND 2025-02-19 14:44:27 1.67 sq m F TBW ([facility]) 2025-02-19 14:44:27 30.27 Liters F WEIGHT - PRE DAY 1 2025-02-19 14:44:27 57.7 kg F stdKT/V Total 2025-02-19 14:44:27 N/A F Dialyzer JEANINE 2025-02-19 14:44:27 1603 Calc F Urea nitrogen [Mass/volume] in Serum or Plasma --post dialysis 2025-02-19 14:42:17 21 mg/dL F 9.0-23.0 Urea nitrogen [Mass/volume] in Serum or Plasma --post dialysis 2025-02-19 14:42:17 21 mg/dL F 9.0-23.0 Urea nitrogen [Mass/volume] in Serum or Plasma --post dialysis 2025-02-19 14:42:17 21 mg/dL F 9.0-23.0 Urea nitrogen [Mass/volume] in Serum or Plasma 2025-02-16 14:44:11 65 mg/dL F 9.0-23.0 Urea nitrogen [Mass/volume] in Serum or Plasma 2025-02-16 14:44:11 65 mg/dL F 9.0-23.0 Urea nitrogen [Mass/volume] in Serum or Plasma 2025-02-16 14:44:11 65 mg/dL F 9.0-23.0 HEIGHT IN INCHES 2025-02-14 15:14:17 67 Inches F stdKt/V (DIAL) 2025-02-14 15:14:17 N/A F AMPUTATE FACTOR 2025-02-14 15:14:17 0 F WEIGHT - PRE DAY 1 2025-02-14 15:14:17 60.6 kg F LENGTH OF DIALYSIS 2025-02-14 15:14:17 189 min F Dialyzer JEANINE 2025-02-14 15:14:17 1455 Calc F Residual kt/v 2025-02-14 15:14:17 F BSA ANAND 2025-02-14 15:14:17 1.63 sq m F KT/V PRESCRIBED 2025-02-14 15:14:17 2.33 F TBW ([facility]) 2025-02-14 15:14:17 30.55 Liters F stdKT/V Total 2025-02-14 15:14:17 N/A F PRESCRIBED DAYS/WEEK 2025-02-14 15:14:17 3 Day/Wk F WEIGHT (KG) 2025-02-14 15:14:17 54.5 kg F spKt/V 2025-02-14 15:14:17 1.08 F DIALYZER FLOW-QD 2025-02-14 15:14:17 700 mL/min F PATIENT AGE 2025-02-14 15:14:17 54 Years F CURRENT KRU 2025-02-14 15:14:17 F TOTAL HOURS/WEEK DIALYSIS 2025-02-14 15:14:17 6 hrs F Total Kt/V 2025-02-14 15:14:17 1.08 F eKt/V 2025-02-14 15:14:17 0.92 F VM (KT/V MEAN VOL) 2025-02-14 15:14:17 50.5 F Std Renal KT/V 2025-02-14 15:14:17 N/A F BLOOD FLOW-QWB 2025-02-14 15:14:17 322 F URR% 2025-02-14 15:14:17 62 % F nPCR 2025-02-14 15:14:17 0.7 G/KG/D F WEIGHT - POST DAY 1 2025-02-14 15:14:17 58.6 kg F VT (KT/V TX VOL) 2025-02-14 15:14:17 45.4 L F HEIGHT IN INCHES 2025-02-14 15:14:17 67 Inches F stdKt/V (DIAL) 2025-02-14 15:14:17 N/A F Dialyzer JEANINE 2025-02-14 15:14:17 1455 Calc F Residual kt/v 2025-02-14 15:14:17 F Unable to calculate: Pre BUN lab result is unknown DIALYZER FLOW-QD 2025-02-14 15:14:17 700 mL/min F AMPUTATE FACTOR 2025-02-14 15:14:17 0 F KT/V PRESCRIBED 2025-02-14 15:14:17 2.33 F BSA ANAND 2025-02-14 15:14:17 1.63 sq m F PRESCRIBED DAYS/WEEK 2025-02-14 15:14:17 3 Day/Wk F WEIGHT - PRE DAY 1 2025-02-14 15:14:17 60.6 kg F LENGTH OF DIALYSIS 2025-02-14 15:14:17 189 min F PATIENT AGE 2025-02-14 15:14:17 54 Years F stdKT/V Total 2025-02-14 15:14:17 N/A F spKt/V 2025-02-14 15:14:17 1.08 F WEIGHT (KG) 2025-02-14 15:14:17 54.5 kg F TBW ([facility]) 2025-02-14 15:14:17 30.55 Liters F URR% 2025-02-14 15:14:17 62 % F eKt/V 2025-02-14 15:14:17 0.92 F VM (KT/V MEAN VOL) 2025-02-14 15:14:17 50.5 F TOTAL HOURS/WEEK DIALYSIS 2025-02-14 15:14:17 6 hrs F VT (KT/V TX VOL) 2025-02-14 15:14:17 45.4 L F nPCR 2025-02-14 15:14:17 0.7 G/KG/D F Total Kt/V 2025-02-14 15:14:17 1.08 F BLOOD FLOW-QWB 2025-02-14 15:14:17 322 F Std Renal KT/V 2025-02-14 15:14:17 N/A F WEIGHT - POST DAY 1 2025-02-14 15:14:17 58.6 kg F CURRENT KRU 2025-02-14 15:14:17 F Unable to calculate: Pre BUN lab result is unknown CURRENT KRU 2025-02-14 15:14:17 F BSA ANAND 2025-02-14 15:14:17 1.63 sq m F HEIGHT IN INCHES 2025-02-14 15:14:17 67 Inches F Residual kt/v 2025-02-14 15:14:17 F stdKT/V Total 2025-02-14 15:14:17 N/A F nPCR 2025-02-14 15:14:17 0.7 G/KG/D F WEIGHT - PRE DAY 1 2025-02-14 15:14:17 60.6 kg F Std Renal KT/V 2025-02-14 15:14:17 N/A F VT (KT/V TX VOL) 2025-02-14 15:14:17 45.4 L F WEIGHT (KG) 2025-02-14 15:14:17 54.5 kg F PRESCRIBED DAYS/WEEK 2025-02-14 15:14:17 3 Day/Wk F spKt/V 2025-02-14 15:14:17 1.08 F Dialyzer JEANINE 2025-02-14 15:14:17 1455 Calc F PATIENT AGE 2025-02-14 15:14:17 54 Years F stdKt/V (DIAL) 2025-02-14 15:14:17 N/A F VM (KT/V MEAN VOL) 2025-02-14 15:14:17 50.5 F TOTAL HOURS/WEEK DIALYSIS 2025-02-14 15:14:17 6 hrs F URR% 2025-02-14 15:14:17 62 % F DIALYZER FLOW-QD 2025-02-14 15:14:17 700 mL/min F AMPUTATE FACTOR 2025-02-14 15:14:17 0 F BLOOD FLOW-QWB 2025-02-14 15:14:17 322 F LENGTH OF DIALYSIS 2025-02-14 15:14:17 189 min F WEIGHT - POST DAY 1 2025-02-14 15:14:17 58.6 kg F TBW ([facility]) 2025-02-14 15:14:17 30.55 Liters F eKt/V 2025-02-14 15:14:17 0.92 F Total Kt/V 2025-02-14 15:14:17 1.08 F KT/V PRESCRIBED 2025-02-14 15:14:17 2.33 F Urea nitrogen [Mass/volume] in Serum or Plasma 2025-02-14 15:12:20 77 mg/dL F 9.0-23.0 Urea nitrogen [Mass/volume] in Serum or Plasma 2025-02-14 15:12:20 77 mg/dL F 9.0-23.0 Urea nitrogen [Mass/volume] in Serum or Plasma 2025-02-14 15:12:20 77 mg/dL F 9.0-23.0 Urea nitrogen [Mass/volume] in Serum or Plasma --post dialysis 2025-02-14 12:58:10 29 mg/dL F 9.0-23.0 Urea nitrogen [Mass/volume] in Serum or Plasma --post dialysis 2025-02-14 12:58:10 29 mg/dL F 9.0-23.0 Urea nitrogen [Mass/volume] in Serum or Plasma --post dialysis 2025-02-14 12:58:10 29 mg/dL F 9.0-23.0 HEIGHT IN INCHES 2025-02-09 16:23:51 67 Inches F nPCR 2025-02-09 16:23:51 0.8 G/KG/D F WEIGHT - PRE DAY 1 2025-02-09 16:23:51 59.8 kg F BSA ANAND 2025-02-09 16:23:51 1.63 sq m F Std Renal KT/V 2025-02-09 16:23:51 N/A F Dialyzer JEANINE 2025-02-09 16:23:51 1455 Calc F VT (KT/V TX VOL) 2025-02-09 16:23:51 55.9 L F Total Kt/V 2025-02-09 16:23:51 1.03 F BLOOD FLOW-QWB 2025-02-09 16:23:51 400 F CURRENT KRU 2025-02-09 16:23:51 F Unable to calculate: Pre BUN lab result is unknown WEIGHT - POST DAY 1 2025-02-09 16:23:51 58 kg F KT/V PRESCRIBED 2025-02-09 16:23:51 2.38 F DIALYZER FLOW-QD 2025-02-09 16:23:51 700 mL/min F WEIGHT (KG) 2025-02-09 16:23:51 54.5 kg F AMPUTATE FACTOR 2025-02-09 16:23:51 0 F PRESCRIBED DAYS/WEEK 2025-02-09 16:23:51 3 Day/Wk F eKt/V 2025-02-09 16:23:51 0.88 F PATIENT AGE 2025-02-09 16:23:51 54 Years F TBW ([facility]) 2025-02-09 16:23:51 30.4 Liters F URR% 2025-02-09 16:23:51 60 % F Residual kt/v 2025-02-09 16:23:51 F Unable to calculate: Pre BUN lab result is unknown stdKT/V Total 2025-02-09 16:23:51 N/A F TOTAL HOURS/WEEK DIALYSIS 2025-02-09 16:23:51 6 hrs F VM (KT/V MEAN VOL) 2025-02-09 16:23:51 52.2 F stdKt/V (DIAL) 2025-02-09 16:23:51 N/A F spKt/V 2025-02-09 16:23:51 1.03 F LENGTH OF DIALYSIS 2025-02-09 16:23:51 193 min F BSA ANAND 2025-02-09 16:23:51 1.63 sq m F VT (KT/V TX VOL) 2025-02-09 16:23:51 55.9 L F Total Kt/V 2025-02-09 16:23:51 1.03 F nPCR 2025-02-09 16:23:51 0.8 G/KG/D F Std Renal KT/V 2025-02-09 16:23:51 N/A F WEIGHT - PRE DAY 1 2025-02-09 16:23:51 59.8 kg F Dialyzer JEANINE 2025-02-09 16:23:51 1455 Calc F HEIGHT IN INCHES 2025-02-09 16:23:51 67 Inches F BLOOD FLOW-QWB 2025-02-09 16:23:51 400 F AMPUTATE FACTOR 2025-02-09 16:23:51 0 F CURRENT KRU 2025-02-09 16:23:51 F PATIENT AGE 2025-02-09 16:23:51 54 Years F eKt/V 2025-02-09 16:23:51 0.88 F WEIGHT (KG) 2025-02-09 16:23:51 54.5 kg F KT/V PRESCRIBED 2025-02-09 16:23:51 2.38 F TBW ([facility]) 2025-02-09 16:23:51 30.4 Liters F PRESCRIBED DAYS/WEEK 2025-02-09 16:23:51 3 Day/Wk F DIALYZER FLOW-QD 2025-02-09 16:23:51 700 mL/min F URR% 2025-02-09 16:23:51 60 % F Residual kt/v 2025-02-09 16:23:51 F WEIGHT - POST DAY 1 2025-02-09 16:23:51 58 kg F TOTAL HOURS/WEEK DIALYSIS 2025-02-09 16:23:51 6 hrs F LENGTH OF DIALYSIS 2025-02-09 16:23:51 193 min F VM (KT/V MEAN VOL) 2025-02-09 16:23:51 52.2 F stdKT/V Total 2025-02-09 16:23:51 N/A F spKt/V 2025-02-09 16:23:51 1.03 F stdKt/V (DIAL) 2025-02-09 16:23:51 N/A F Urea nitrogen [Mass/volume] in Serum or Plasma 2025-02-09 16:22:15 63 mg/dL F 9.0-23.0 Urea nitrogen [Mass/volume] in Serum or Plasma 2025-02-09 16:22:15 63 mg/dL F 9.0-23.0 Urea nitrogen [Mass/volume] in Serum or Plasma --post dialysis 2025-02-09 14:54:19 25 mg/dL F 9.0-23.0 Urea nitrogen [Mass/volume] in Serum or Plasma --post dialysis 2025-02-09 14:54:19 25 mg/dL F 9.0-23.0 Residual kt/v 2025-02-07 14:28:31 F spKt/V 2025-02-07 14:28:31 1.02 F Dialyzer JEANINE 2025-02-07 14:28:31 1455 Calc F WEIGHT - POST DAY 1 2025-02-07 14:28:31 58.9 kg F TOTAL HOURS/WEEK DIALYSIS 2025-02-07 14:28:31 6 hrs F AMPUTATE FACTOR 2025-02-07 14:28:31 0 F KT/V PRESCRIBED 2025-02-07 14:28:31 2.32 F eKt/V 2025-02-07 14:28:31 0.87 F TBW ([facility]) 2025-02-07 14:28:31 30.62 Liters F stdKt/V (DIAL) 2025-02-07 14:28:31 N/A F VT (KT/V TX VOL) 2025-02-07 14:28:31 55.8 L F nPCR 2025-02-07 14:28:31 1.05 G/KG/D F stdKT/V Total 2025-02-07 14:28:31 N/A F LENGTH OF DIALYSIS 2025-02-07 14:28:31 188 min F DIALYZER FLOW-QD 2025-02-07 14:28:31 800 mL/min F URR% 2025-02-07 14:28:31 61 % F VM (KT/V MEAN VOL) 2025-02-07 14:28:31 50.9 F HEIGHT IN INCHES 2025-02-07 14:28:31 67 Inches F Std Renal KT/V 2025-02-07 14:28:31 N/A F WEIGHT - PRE DAY 1 2025-02-07 14:28:31 60.1 kg F Total Kt/V 2025-02-07 14:28:31 1.02 F BSA ANAND 2025-02-07 14:28:31 1.63 sq m F PATIENT AGE 2025-02-07 14:28:31 54 Years F WEIGHT (KG) 2025-02-07 14:28:31 54.5 kg F PRESCRIBED DAYS/WEEK 2025-02-07 14:28:31 3 Day/Wk F CURRENT KRU 2025-02-07 14:28:31 F BLOOD FLOW-QWB 2025-02-07 14:28:31 400 F spKt/V 2025-02-07 14:28:31 1.02 F WEIGHT - POST DAY 1 2025-02-07 14:28:31 58.9 kg F Residual kt/v 2025-02-07 14:28:31 F Unable to calculate: Post BUN lab result is unknown Dialyzer JEANINE 2025-02-07 14:28:31 1455 Calc F stdKt/V (DIAL) 2025-02-07 14:28:31 N/A F DIALYZER FLOW-QD 2025-02-07 14:28:31 800 mL/min F stdKT/V Total 2025-02-07 14:28:31 N/A F URR% 2025-02-07 14:28:31 61 % F TOTAL HOURS/WEEK DIALYSIS 2025-02-07 14:28:31 6 hrs F TBW ([facility]) 2025-02-07 14:28:31 30.62 Liters F eKt/V 2025-02-07 14:28:31 0.87 F LENGTH OF DIALYSIS 2025-02-07 14:28:31 188 min F nPCR 2025-02-07 14:28:31 1.05 G/KG/D F VT (KT/V TX VOL) 2025-02-07 14:28:31 55.8 L F AMPUTATE FACTOR 2025-02-07 14:28:31 0 F PATIENT AGE 2025-02-07 14:28:31 54 Years F KT/V PRESCRIBED 2025-02-07 14:28:31 2.32 F HEIGHT IN INCHES 2025-02-07 14:28:31 67 Inches F WEIGHT (KG) 2025-02-07 14:28:31 54.5 kg F Total Kt/V 2025-02-07 14:28:31 1.02 F WEIGHT - PRE DAY 1 2025-02-07 14:28:31 60.1 kg F VM (KT/V MEAN VOL) 2025-02-07 14:28:31 50.9 F BLOOD FLOW-QWB 2025-02-07 14:28:31 400 F PRESCRIBED DAYS/WEEK 2025-02-07 14:28:31 3 Day/Wk F Std Renal KT/V 2025-02-07 14:28:31 N/A F CURRENT KRU 2025-02-07 14:28:31 F Unable to calculate: Post BUN lab result is unknown BSA ANAND 2025-02-07 14:28:31 1.63 sq m F Dialyzer JEANINE 2025-02-07 14:28:31 1455 Calc F WEIGHT - POST DAY 1 2025-02-07 14:28:31 58.9 kg F Residual kt/v 2025-02-07 14:28:31 F spKt/V 2025-02-07 14:28:31 1.02 F DIALYZER FLOW-QD 2025-02-07 14:28:31 800 mL/min F TBW ([facility]) 2025-02-07 14:28:31 30.62 Liters F nPCR 2025-02-07 14:28:31 1.05 G/KG/D F stdKt/V (DIAL) 2025-02-07 14:28:31 N/A F KT/V PRESCRIBED 2025-02-07 14:28:31 2.32 F eKt/V 2025-02-07 14:28:31 0.87 F TOTAL HOURS/WEEK DIALYSIS 2025-02-07 14:28:31 6 hrs F stdKT/V Total 2025-02-07 14:28:31 N/A F VT (KT/V TX VOL) 2025-02-07 14:28:31 55.8 L F LENGTH OF DIALYSIS 2025-02-07 14:28:31 188 min F URR% 2025-02-07 14:28:31 61 % F PATIENT AGE 2025-02-07 14:28:31 54 Years F Std Renal KT/V 2025-02-07 14:28:31 N/A F WEIGHT (KG) 2025-02-07 14:28:31 54.5 kg F AMPUTATE FACTOR 2025-02-07 14:28:31 0 F BSA ANAND 2025-02-07 14:28:31 1.63 sq m F VM (KT/V MEAN VOL) 2025-02-07 14:28:31 50.9 F CURRENT HUBERU 2025-02-07 14:28:31 F HEIGHT IN INCHES 2025-02-07 14:28:31 67 Inches F PRESCRIBED DAYS/WEEK 2025-02-07 14:28:31 3 Day/Wk F WEIGHT - PRE DAY 1 2025-02-07 14:28:31 60.1 kg F Total Kt/V 2025-02-07 14:28:31 1.02 F BLOOD FLOW-QWB 2025-02-07 14:28:31 400 F Urea nitrogen [Mass/volume] in Serum or Plasma --post dialysis 2025-02-07 14:27:09 35 mg/dL F 9.0-23.0 Urea nitrogen [Mass/volume] in Serum or Plasma --post dialysis 2025-02-07 14:27:09 35 mg/dL F 9.0-23.0 Urea nitrogen [Mass/volume] in Serum or Plasma --post dialysis 2025-02-07 14:27:09 35 mg/dL F 9.0-23.0 Urea nitrogen [Mass/volume] in Serum or Plasma 2025-02-07 13:23:16 89 mg/dL F 9.0-23.0 Urea nitrogen [Mass/volume] in Serum or Plasma 2025-02-07 13:23:16 89 mg/dL F 9.0-23.0 Urea nitrogen [Mass/volume] in Serum or Plasma 2025-02-07 13:23:16 89 mg/dL F 9.0-23.0 VT (KT/V TX VOL) 2025-01-22 20:14:33 40.6 L F TBW ([facility]) 2025-01-22 20:14:33 30.3 Liters F Total Kt/V 2025-01-22 20:14:33 0.91 F BLOOD FLOW-QWB 2025-01-22 20:14:33 307 F WEIGHT - PRE DAY 1 2025-01-22 20:14:33 59.1 kg F WEIGHT (KG) 2025-01-22 20:14:33 57 kg F TOTAL HOURS/WEEK DIALYSIS 2025-01-22 20:14:33 9 hrs F Std Renal KT/V 2025-01-22 20:14:33 N/A F CURRENT KRU 2025-01-22 20:14:33 F PATIENT AGE 2025-01-22 20:14:33 54 Years F KT/V PRESCRIBED 2025-01-22 20:14:33 1.77 F BSA ANAND 2025-01-22 20:14:33 1.66 sq m F DIALYZER FLOW-QD 2025-01-22 20:14:33 800 mL/min F HEIGHT IN INCHES 2025-01-22 20:14:33 67 Inches F Dialyzer JEANINE 2025-01-22 20:14:33 1455 Calc F Residual kt/v 2025-01-22 20:14:33 F stdKt/V (DIAL) 2025-01-22 20:14:33 N/A F VM (KT/V MEAN VOL) 2025-01-22 20:14:33 49.2 F eKt/V 2025-01-22 20:14:33 0.75 F LENGTH OF DIALYSIS 2025-01-22 20:14:33 146 min F WEIGHT - POST DAY 1 2025-01-22 20:14:33 57.6 kg F URR% 2025-01-22 20:14:33 56 % F PRESCRIBED DAYS/WEEK 2025-01-22 20:14:33 3 Day/Wk F spKt/V 2025-01-22 20:14:33 0.91 F stdKT/V Total 2025-01-22 20:14:33 N/A F AMPUTATE FACTOR 2025-01-22 20:14:33 0 F nPCR 2025-01-22 20:14:33 0.77 G/KG/D F BLOOD FLOW-QWB 2025-01-22 20:14:33 307 F VT (KT/V TX VOL) 2025-01-22 20:14:33 40.6 L F TBW ([place]) 2025-01-22 20:14:33 30.3 Liters F stdKt/V (DIAL) 2025-01-22 20:14:33 N/A F Std Renal KT/V 2025-01-22 20:14:33 N/A F PATIENT AGE 2025-01-22 20:14:33 54 Years F WEIGHT (KG) 2025-01-22 20:14:33 57 kg F DIALYZER FLOW-QD 2025-01-22 20:14:33 800 mL/min F Dialyzer JEANINE 2025-01-22 20:14:33 1455 Calc F KT/V PRESCRIBED 2025-01-22 20:14:33 1.77 F WEIGHT - PRE DAY 1 2025-01-22 20:14:33 59.1 kg F HEIGHT IN INCHES 2025-01-22 20:14:33 67 Inches F Total Kt/V 2025-01-22 20:14:33 0.91 F CURRENT KRU 2025-01-22 20:14:33 F BSA ANAND 2025-01-22 20:14:33 1.66 sq m F TOTAL HOURS/WEEK DIALYSIS 2025-01-22 20:14:33 9 hrs F spKt/V 2025-01-22 20:14:33 0.91 F LENGTH OF DIALYSIS 2025-01-22 20:14:33 146 min F eKt/V 2025-01-22 20:14:33 0.75 F nPCR 2025-01-22 20:14:33 0.77 G/KG/D F PRESCRIBED DAYS/WEEK 2025-01-22 20:14:33 3 Day/Wk F stdKT/V Total 2025-01-22 20:14:33 N/A F WEIGHT - POST DAY 1 2025-01-22 20:14:33 57.6 kg F Residual kt/v 2025-01-22 20:14:33 F VM (KT/V MEAN VOL) 2025-01-22 20:14:33 49.2 F URR% 2025-01-22 20:14:33 56 % F AMPUTATE FACTOR 2025-01-22 20:14:33 0 F VT (KT/V TX VOL) 2025-01-22 20:14:33 40.6 L F BLOOD FLOW-QWB 2025-01-22 20:14:33 307 F TBW ([facility]) 2025-01-22 20:14:33 30.3 Liters F CURRENT KRU 2025-01-22 20:14:33 F Unable to calculate: Post BUN lab result is unknown PATIENT AGE 2025-01-22 20:14:33 54 Years F stdKt/V (DIAL) 2025-01-22 20:14:33 N/A F Std Renal KT/V 2025-01-22 20:14:33 N/A F Dialyzer JEANINE 2025-01-22 20:14:33 1455 Calc F HEIGHT IN INCHES 2025-01-22 20:14:33 67 Inches F KT/V PRESCRIBED 2025-01-22 20:14:33 1.77 F TOTAL HOURS/WEEK DIALYSIS 2025-01-22 20:14:33 9 hrs F DIALYZER FLOW-QD 2025-01-22 20:14:33 800 mL/min F WEIGHT - PRE DAY 1 2025-01-22 20:14:33 59.1 kg F Total Kt/V 2025-01-22 20:14:33 0.91 F BSA ANAND 2025-01-22 20:14:33 1.66 sq m F WEIGHT (KG) 2025-01-22 20:14:33 57 kg F URR% 2025-01-22 20:14:33 56 % F nPCR 2025-01-22 20:14:33 0.77 G/KG/D F LENGTH OF DIALYSIS 2025-01-22 20:14:33 146 min F PRESCRIBED DAYS/WEEK 2025-01-22 20:14:33 3 Day/Wk F Residual kt/v 2025-01-22 20:14:33 F Unable to calculate: Post BUN lab result is unknown VM (KT/V MEAN VOL) 2025-01-22 20:14:33 49.2 F AMPUTATE FACTOR 2025-01-22 20:14:33 0 F spKt/V 2025-01-22 20:14:33 0.91 F eKt/V 2025-01-22 20:14:33 0.75 F WEIGHT - POST DAY 1 2025-01-22 20:14:33 57.6 kg F stdKT/V Total 2025-01-22 20:14:33 N/A F Urea nitrogen [Mass/volume] in Serum or Plasma --post dialysis 2025-01-22 16:08:22 26 mg/dL F 9.0-23.0 Urea nitrogen [Mass/volume] in Serum or Plasma --post dialysis 2025-01-22 16:08:22 26 mg/dL F 9.0-23.0 Urea nitrogen [Mass/volume] in Serum or Plasma --post dialysis 2025-01-22 16:08:22 26 mg/dL F 9.0-23.0 Creatinine [Mass/volume] in Serum or Plasma 2025-01-22 13:05:14 4.82 mg/dL F 0.5-1.1 Urea nitrogen [Mass/volume] in Serum or Plasma 2025-01-22 13:05:14 59 mg/dL F 9.0-23.0 Creatinine [Mass/volume] in Serum or Plasma 2025-01-22 13:05:14 4.82 mg/dL F 0.5-1.1 Urea nitrogen [Mass/volume] in Serum or Plasma 2025-01-22 13:05:14 59 mg/dL F 9.0-23.0 Creatinine [Mass/volume] in Serum or Plasma 2025-01-22 13:05:14 4.82 mg/dL F 0.5-1.1 Urea nitrogen [Mass/volume] in Serum or Plasma 2025-01-22 13:05:14 59 mg/dL F 9.0-23.0 Creatinine [Mass/volume] in Serum or Plasma 2025-01-11 18:36:39 4.34 mg/dL F 0.3-1.3 Urea nitrogen [Mass/volume] in Serum or Plasma 2025-01-11 18:36:39 54 mg/dL F 03-14 Creatinine [Mass/volume] in Serum or Plasma 2025-01-11 18:36:39 4.34 mg/dL F 0.3-1.3 Urea nitrogen [Mass/volume] in Serum or Plasma 2025-01-11 18:36:39 54 mg/dL F 6-26 AMPUTATE FACTOR 2024-12-29 06:06:34 0 F HEIGHT IN INCHES 2024-12-29 06:06:34 67 Inches F PATIENT AGE 2024-12-29 06:06:34 54 Years F WEIGHT (KG) 2024-12-29 06:06:34 60 kg F AMPUTATE FACTOR 2024-12-29 06:06:34 0 F HEIGHT IN INCHES 2024-12-29 06:06:34 67 Inches F PATIENT AGE 2024-12-29 06:06:34 54 Years F WEIGHT (KG) 2024-12-29 06:06:34 60 kg F AMPUTATE FACTOR 2024-12-27 13:02:46 0 F URR% 2024-12-27 13:02:46 65 % F HEIGHT IN INCHES 2024-12-27 13:02:46 67 Inches F VT (KT/V TX VOL) 2024-12-27 13:02:46 49.2 L F TOTAL HOURS/WEEK DIALYSIS 2024-12-27 13:02:46 9 hrs F BLOOD FLOW-QWB 2024-12-27 13:02:46 400 F LENGTH OF DIALYSIS 2024-12-27 13:02:46 193 min F BSA ANAND 2024-12-27 13:02:46 1.7 sq m F Total Kt/V 2024-12-27 13:02:46 1.18 F Dialyzer JEANINE 2024-12-27 13:02:46 1455 Calc F KT/V PRESCRIBED 2024-12-27 13:02:46 2.28 F spKt/V 2024-12-27 13:02:46 1.18 F WEIGHT (KG) 2024-12-27 13:02:46 60 kg F VM (KT/V MEAN VOL) 2024-12-27 13:02:46 52.1 F WEIGHT - PRE DAY 1 2024-12-27 13:02:46 61.9 kg F stdKT/V Total 2024-12-27 13:02:46 N/A F stdKt/V (DIAL) 2024-12-27 13:02:46 N/A F TBW ([facility]) 2024-12-27 13:02:46 30.94 Liters F PRESCRIBED DAYS/WEEK 2024-12-27 13:02:46 3 Day/Wk F CURRENT KRU 2024-12-27 13:02:46 F Std Renal KT/V 2024-12-27 13:02:46 N/A F nPCR 2024-12-27 13:02:46 0.88 G/KG/D F Residual kt/v 2024-12-27 13:02:46 F WEIGHT - POST DAY 1 2024-12-27 13:02:46 60.2 kg F DIALYZER FLOW-QD 2024-12-27 13:02:46 750 mL/min F eKt/V 2024-12-27 13:02:46 1 F PATIENT AGE 2024-12-27 13:02:46 54 Years F Urea nitrogen [Mass/volume] in Serum or Plasma --post dialysis 2024-12-27 13:01:25 18 mg/dL F 9.0-23.0 Urea nitrogen [Mass/volume] in Serum or Plasma 2024-12-27 12:05:17 51 mg/dL F 9.0-23.0 eKt/V 2024-12-25 12:48:59 0.84 F VM (KT/V MEAN VOL) 2024-12-25 12:48:59 53.1 F TOTAL HOURS/WEEK DIALYSIS 2024-12-25 12:48:59 9 hrs F PRESCRIBED DAYS/WEEK 2024-12-25 12:48:59 3 Day/Wk F WEIGHT - POST DAY 1 2024-12-25 12:48:59 60.1 kg F WEIGHT - PRE DAY 1 2024-12-25 12:48:59 61.8 kg F VT (KT/V TX VOL) 2024-12-25 12:48:59 57.2 L F AMPUTATE FACTOR 2024-12-25 12:48:59 0 F stdKt/V (DIAL) 2024-12-25 12:48:59 N/A F BSA ANAND 2024-12-25 12:48:59 1.7 sq m F Std Renal KT/V 2024-12-25 12:48:59 N/A F Dialyzer JEANINE 2024-12-25 12:48:59 1455 Calc F CURRENT KRU 2024-12-25 12:48:59 F nPCR 2024-12-25 12:48:59 0.77 G/KG/D F URR% 2024-12-25 12:48:59 59 % F WEIGHT (KG) 2024-12-25 12:48:59 60 kg F PATIENT AGE 2024-12-25 12:48:59 54 Years F stdKT/V Total 2024-12-25 12:48:59 N/A F TBW ([facility]) 2024-12-25 12:48:59 30.92 Liters F Total Kt/V 2024-12-25 12:48:59 0.98 F BLOOD FLOW-QWB 2024-12-25 12:48:59 367 F KT/V PRESCRIBED 2024-12-25 12:48:59 2.31 F LENGTH OF DIALYSIS 2024-12-25 12:48:59 196 min F DIALYZER FLOW-QD 2024-12-25 12:48:59 800 mL/min F HEIGHT IN INCHES 2024-12-25 12:48:59 67 Inches F Residual kt/v 2024-12-25 12:48:59 F spKt/V 2024-12-25 12:48:59 0.98 F VM (KT/V MEAN VOL) 2024-12-25 12:48:59 53.1 F BSA ANAND 2024-12-25 12:48:59 1.7 sq m F WEIGHT - PRE DAY 1 2024-12-25 12:48:59 61.8 kg F VT (KT/V TX VOL) 2024-12-25 12:48:59 57.2 L F PRESCRIBED DAYS/WEEK 2024-12-25 12:48:59 3 Day/Wk F stdKt/V (DIAL) 2024-12-25 12:48:59 N/A F eKt/V 2024-12-25 12:48:59 0.84 F TOTAL HOURS/WEEK DIALYSIS 2024-12-25 12:48:59 9 hrs F WEIGHT - POST DAY 1 2024-12-25 12:48:59 60.1 kg F KT/V PRESCRIBED 2024-12-25 12:48:59 2.31 F Std Renal KT/V 2024-12-25 12:48:59 N/A F TBW ([facility]) 2024-12-25 12:48:59 30.92 Liters F WEIGHT (KG) 2024-12-25 12:48:59 60 kg F BLOOD FLOW-QWB 2024-12-25 12:48:59 367 F AMPUTATE FACTOR 2024-12-25 12:48:59 0 F stdKT/V Total 2024-12-25 12:48:59 N/A F CURRENT KRU 2024-12-25 12:48:59 F PATIENT AGE 2024-12-25 12:48:59 54 Years F Dialyzer JEANINE 2024-12-25 12:48:59 1455 Calc F nPCR 2024-12-25 12:48:59 0.77 G/KG/D F Total Kt/V 2024-12-25 12:48:59 0.98 F LENGTH OF DIALYSIS 2024-12-25 12:48:59 196 min F DIALYZER FLOW-QD 2024-12-25 12:48:59 800 mL/min F spKt/V 2024-12-25 12:48:59 0.98 F URR% 2024-12-25 12:48:59 59 % F HEIGHT IN INCHES 2024-12-25 12:48:59 67 Inches F Residual kt/v 2024-12-25 12:48:59 F Urea nitrogen [Mass/volume] in Serum or Plasma --post dialysis 2024-12-25 12:47:16 24 mg/dL F 9.0-23.0 Urea nitrogen [Mass/volume] in Serum or Plasma --post dialysis 2024-12-25 12:47:16 24 mg/dL F 9.0-23.0 Urea nitrogen [Mass/volume] in Serum or Plasma 2024-12-25 12:41:21 58 mg/dL F 9.0-23.0 Urea nitrogen [Mass/volume] in Serum or Plasma 2024-12-25 12:41:21 58 mg/dL F 9.0-23.0 HEIGHT IN INCHES 2024-12-22 15:38:15 67 Inches F eKt/V 2024-12-22 15:38:15 0.75 F AMPUTATE FACTOR 2024-12-22 15:38:15 0 F Std Renal KT/V 2024-12-22 15:38:15 N/A F stdKt/V (DIAL) 2024-12-22 15:38:15 N/A F BLOOD FLOW-QWB 2024-12-22 15:38:15 400 F PRESCRIBED DAYS/WEEK 2024-12-22 15:38:15 3 Day/Wk F stdKT/V Total 2024-12-22 15:38:15 N/A F nPCR 2024-12-22 15:38:15 0.87 G/KG/D F TBW ([facility]) 2024-12-22 15:38:15 30.99 Liters F Dialyzer JEANINE 2024-12-22 15:38:15 1455 Calc F WEIGHT - POST DAY 1 2024-12-22 15:38:15 60.4 kg F DIALYZER FLOW-QD 2024-12-22 15:38:15 800 mL/min F spKt/V 2024-12-22 15:38:15 0.89 F WEIGHT (KG) 2024-12-22 15:38:15 60 kg F VT (KT/V TX VOL) 2024-12-22 15:38:15 56.2 L F VM (KT/V MEAN VOL) 2024-12-22 15:38:15 51.7 F WEIGHT - PRE DAY 1 2024-12-22 15:38:15 60.7 kg F LENGTH OF DIALYSIS 2024-12-22 15:38:15 165 min F Total Kt/V 2024-12-22 15:38:15 0.89 F TOTAL HOURS/WEEK DIALYSIS 2024-12-22 15:38:15 9 hrs F URR% 2024-12-22 15:38:15 56 % F PATIENT AGE 2024-12-22 15:38:15 54 Years F CURRENT KRU 2024-12-22 15:38:15 F Residual kt/v 2024-12-22 15:38:15 F KT/V PRESCRIBED 2024-12-22 15:38:15 1.95 F BSA ANAND 2024-12-22 15:38:15 1.7 sq m F stdKT/V Total 2024-12-22 15:38:15 N/A F HEIGHT IN INCHES 2024-12-22 15:38:15 67 Inches F nPCR 2024-12-22 15:38:15 0.87 G/KG/D F PRESCRIBED DAYS/WEEK 2024-12-22 15:38:15 3 Day/Wk F AMPUTATE FACTOR 2024-12-22 15:38:15 0 F BLOOD FLOW-QWB 2024-12-22 15:38:15 400 F stdKt/V (DIAL) 2024-12-22 15:38:15 N/A F Std Renal KT/V 2024-12-22 15:38:15 N/A F eKt/V 2024-12-22 15:38:15 0.75 F Dialyzer JEANINE 2024-12-22 15:38:15 1455 Calc F spKt/V 2024-12-22 15:38:15 0.89 F TOTAL HOURS/WEEK DIALYSIS 2024-12-22 15:38:15 9 hrs F WEIGHT (KG) 2024-12-22 15:38:15 60 kg F DIALYZER FLOW-QD 2024-12-22 15:38:15 800 mL/min F TBW ([facility]) 2024-12-22 15:38:15 30.99 Liters F VT (KT/V TX VOL) 2024-12-22 15:38:15 56.2 L F VM (KT/V MEAN VOL) 2024-12-22 15:38:15 51.7 F WEIGHT - POST DAY 1 2024-12-22 15:38:15 60.4 kg F WEIGHT - PRE DAY 1 2024-12-22 15:38:15 60.7 kg F PATIENT AGE 2024-12-22 15:38:15 54 Years F URR% 2024-12-22 15:38:15 56 % F LENGTH OF DIALYSIS 2024-12-22 15:38:15 165 min F Residual kt/v 2024-12-22 15:38:15 F Total Kt/V 2024-12-22 15:38:15 0.89 F KT/V PRESCRIBED 2024-12-22 15:38:15 1.95 F BSA ANAND 2024-12-22 15:38:15 1.7 sq m F CURRENT KRU 2024-12-22 15:38:15 F Urea nitrogen [Mass/volume] in Serum or Plasma --post dialysis 2024-12-22 15:36:19 25 mg/dL F 9.0-23.0 Urea nitrogen [Mass/volume] in Serum or Plasma --post dialysis 2024-12-22 15:36:19 25 mg/dL F 9.0-23.0 Urea nitrogen [Mass/volume] in Serum or Plasma 2024-12-22 15:17:15 57 mg/dL F 9.0-23.0 Urea nitrogen [Mass/volume] in Serum or Plasma 2024-12-22 15:17:15 57 mg/dL F 9.0-23.0 BLOOD FLOW-QWB 2024-12-20 12:56:24 400 F stdKT/V Total 2024-12-20 12:56:24 N/A F PRESCRIBED DAYS/WEEK 2024-12-20 12:56:24 3 Day/Wk F HEIGHT IN INCHES 2024-12-20 12:56:24 67 Inches F BSA ANAND 2024-12-20 12:56:24 1.7 sq m F spKt/V 2024-12-20 12:56:24 1.07 F PATIENT AGE 2024-12-20 12:56:24 54 Years F VT (KT/V TX VOL) 2024-12-20 12:56:24 55.6 L F KT/V PRESCRIBED 2024-12-20 12:56:24 2.34 F nPCR 2024-12-20 12:56:24 0.94 G/KG/D F TBW ([facility]) 2024-12-20 12:56:24 30.92 Liters F CURRENT KRU 2024-12-20 12:56:24 F WEIGHT - POST DAY 1 2024-12-20 12:56:24 60.1 kg F Residual kt/v 2024-12-20 12:56:24 F WEIGHT - PRE DAY 1 2024-12-20 12:56:24 61.2 kg F AMPUTATE FACTOR 2024-12-20 12:56:24 0 F Total Kt/V 2024-12-20 12:56:24 1.07 F DIALYZER FLOW-QD 2024-12-20 12:56:24 800 mL/min F VM (KT/V MEAN VOL) 2024-12-20 12:56:24 50.2 F TOTAL HOURS/WEEK DIALYSIS 2024-12-20 12:56:24 9 hrs F stdKt/V (DIAL) 2024-12-20 12:56:24 N/A F URR% 2024-12-20 12:56:24 62 % F Dialyzer JEANINE 2024-12-20 12:56:24 1455 Calc F LENGTH OF DIALYSIS 2024-12-20 12:56:24 198 min F WEIGHT (KG) 2024-12-20 12:56:24 60 kg F Std Renal KT/V 2024-12-20 12:56:24 N/A F eKt/V 2024-12-20 12:56:24 0.92 F Urea nitrogen [Mass/volume] in Serum or Plasma 2024-12-20 12:54:21 58 mg/dL F 9.0-23.0 Urea nitrogen [Mass/volume] in Serum or Plasma --post dialysis 2024-12-20 12:44:13 22 mg/dL F 9.0-23.0 URR% 2024-12-18 13:00:56 63 % F WEIGHT (KG) 2024-12-18 13:00:56 60 kg F Std Renal KT/V 2024-12-18 13:00:56 N/A F spKt/V 2024-12-18 13:00:56 1.14 F Total Kt/V 2024-12-18 13:00:56 1.14 F CURRENT KRU 2024-12-18 13:00:56 F TBW ([facility]) 2024-12-18 13:00:56 31.06 Liters F LENGTH OF DIALYSIS 2024-12-18 13:00:56 202 min F KT/V PRESCRIBED 2024-12-18 13:00:56 2.38 F TOTAL HOURS/WEEK DIALYSIS 2024-12-18 13:00:56 9 hrs F Residual kt/v 2024-12-18 13:00:56 F PRESCRIBED DAYS/WEEK 2024-12-18 13:00:56 3 Day/Wk F DIALYZER FLOW-QD 2024-12-18 13:00:56 800 mL/min F Dialyzer JEANINE 2024-12-18 13:00:56 1455 Calc F BSA ANAND 2024-12-18 13:00:56 1.7 sq m F PATIENT AGE 2024-12-18 13:00:56 54 Years F VM (KT/V MEAN VOL) 2024-12-18 13:00:56 48.4 F VT (KT/V TX VOL) 2024-12-18 13:00:56 50.6 L F WEIGHT - PRE DAY 1 2024-12-18 13:00:56 63.2 kg F stdKT/V Total 2024-12-18 13:00:56 N/A F BLOOD FLOW-QWB 2024-12-18 13:00:56 367 F stdKt/V (DIAL) 2024-12-18 13:00:56 N/A F nPCR 2024-12-18 13:00:56 0.95 G/KG/D F eKt/V 2024-12-18 13:00:56 0.98 F WEIGHT - POST DAY 1 2024-12-18 13:00:56 60.7 kg F AMPUTATE FACTOR 2024-12-18 13:00:56 0 F HEIGHT IN INCHES 2024-12-18 13:00:56 67 Inches F URR% 2024-12-18 13:00:56 63 % F spKt/V 2024-12-18 13:00:56 1.14 F Std Renal KT/V 2024-12-18 13:00:56 N/A F WEIGHT (KG) 2024-12-18 13:00:56 60 kg F Total Kt/V 2024-12-18 13:00:56 1.14 F CURRENT KRU 2024-12-18 13:00:56 F TOTAL HOURS/WEEK DIALYSIS 2024-12-18 13:00:56 9 hrs F Residual kt/v 2024-12-18 13:00:56 F VM (KT/V MEAN VOL) 2024-12-18 13:00:56 48.4 F PATIENT AGE 2024-12-18 13:00:56 54 Years F PRESCRIBED DAYS/WEEK 2024-12-18 13:00:56 3 Day/Wk F BSA ANAND 2024-12-18 13:00:56 1.7 sq m F VT (KT/V TX VOL) 2024-12-18 13:00:56 50.6 L F WEIGHT - PRE DAY 1 2024-12-18 13:00:56 63.2 kg F KT/V PRESCRIBED 2024-12-18 13:00:56 2.38 F Dialyzer JEANINE 2024-12-18 13:00:56 1455 Calc F LENGTH OF DIALYSIS 2024-12-18 13:00:56 202 min F DIALYZER FLOW-QD 2024-12-18 13:00:56 800 mL/min F TBW ([facility]) 2024-12-18 13:00:56 31.06 Liters F stdKT/V Total 2024-12-18 13:00:56 N/A F WEIGHT - POST DAY 1 2024-12-18 13:00:56 60.7 kg F stdKt/V (DIAL) 2024-12-18 13:00:56 N/A F BLOOD FLOW-QWB 2024-12-18 13:00:56 367 F nPCR 2024-12-18 13:00:56 0.95 G/KG/D F HEIGHT IN INCHES 2024-12-18 13:00:56 67 Inches F eKt/V 2024-12-18 13:00:56 0.98 F AMPUTATE FACTOR 2024-12-18 13:00:56 0 F Urea nitrogen [Mass/volume] in Serum or Plasma 2024-12-18 12:59:09 68 mg/dL F 9.0-23.0 Urea nitrogen [Mass/volume] in Serum or Plasma 2024-12-18 12:59:09 68 mg/dL F 9.0-23.0 Urea nitrogen [Mass/volume] in Serum or Plasma --post dialysis 2024-12-18 12:45:11 25 mg/dL F 9.0-23.0 Urea nitrogen [Mass/volume] in Serum or Plasma --post dialysis 2024-12-18 12:45:11 25 mg/dL F 9.0-23.0 LENGTH OF DIALYSIS 2024-12-15 14:59:35 199 min F PRESCRIBED DAYS/WEEK 2024-12-15 14:59:35 3 Day/Wk F eKt/V 2024-12-15 14:59:35 1.02 F KT/V PRESCRIBED 2024-12-15 14:59:35 2.35 F VT (KT/V TX VOL) 2024-12-15 14:59:35 50.1 L F URR% 2024-12-15 14:59:35 64 % F TOTAL HOURS/WEEK DIALYSIS 2024-12-15 14:59:35 9 hrs F VM (KT/V MEAN VOL) 2024-12-15 14:59:35 47.6 F stdKt/V (DIAL) 2024-12-15 14:59:35 N/A F CURRENT KRU 2024-12-15 14:59:35 F WEIGHT (KG) 2024-12-15 14:59:35 60 kg F BSA ANAND 2024-12-15 14:59:35 1.7 sq m F BLOOD FLOW-QWB 2024-12-15 14:59:35 400 F Total Kt/V 2024-12-15 14:59:35 1.19 F Dialyzer JEANINE 2024-12-15 14:59:35 1455 Calc F AMPUTATE FACTOR 2024-12-15 14:59:35 0 F WEIGHT - POST DAY 1 2024-12-15 14:59:35 59.9 kg F DIALYZER FLOW-QD 2024-12-15 14:59:35 750 mL/min F HEIGHT IN INCHES 2024-12-15 14:59:35 67 Inches F Residual kt/v 2024-12-15 14:59:35 F spKt/V 2024-12-15 14:59:35 1.19 F nPCR 2024-12-15 14:59:35 1.03 G/KG/D F stdKT/V Total 2024-12-15 14:59:35 N/A F WEIGHT - PRE DAY 1 2024-12-15 14:59:35 62.2 kg F PATIENT AGE 2024-12-15 14:59:35 54 Years F Std Renal KT/V 2024-12-15 14:59:35 N/A F TBW ([facility]) 2024-12-15 14:59:35 30.87 Liters F VM (KT/V MEAN VOL) 2024-12-15 14:59:35 47.6 F URR% 2024-12-15 14:59:35 64 % F PRESCRIBED DAYS/WEEK 2024-12-15 14:59:35 3 Day/Wk F KT/V PRESCRIBED 2024-12-15 14:59:35 2.35 F LENGTH OF DIALYSIS 2024-12-15 14:59:35 199 min F CURRENT KRU 2024-12-15 14:59:35 F TOTAL HOURS/WEEK DIALYSIS 2024-12-15 14:59:35 9 hrs F VT (KT/V TX VOL) 2024-12-15 14:59:35 50.1 L F eKt/V 2024-12-15 14:59:35 1.02 F AMPUTATE FACTOR 2024-12-15 14:59:35 0 F DIALYZER FLOW-QD 2024-12-15 14:59:35 750 mL/min F HEIGHT IN INCHES 2024-12-15 14:59:35 67 Inches F stdKt/V (DIAL) 2024-12-15 14:59:35 N/A F BSA ANAND 2024-12-15 14:59:35 1.7 sq m F BLOOD FLOW-QWB 2024-12-15 14:59:35 400 F WEIGHT - POST DAY 1 2024-12-15 14:59:35 59.9 kg F spKt/V 2024-12-15 14:59:35 1.19 F nPCR 2024-12-15 14:59:35 1.03 G/KG/D F Residual kt/v 2024-12-15 14:59:35 F WEIGHT (KG) 2024-12-15 14:59:35 60 kg F Total Kt/V 2024-12-15 14:59:35 1.19 F WEIGHT - PRE DAY 1 2024-12-15 14:59:35 62.2 kg F Dialyzer JEANINE 2024-12-15 14:59:35 1455 Calc F stdKT/V Total 2024-12-15 14:59:35 N/A F TBW ([facility]) 2024-12-15 14:59:35 30.87 Liters F PATIENT AGE 2024-12-15 14:59:35 54 Years F Std Renal KT/V 2024-12-15 14:59:35 N/A F Urea nitrogen [Mass/volume] in Serum or Plasma --post dialysis 2024-12-15 14:58:09 20 mg/dL F 9.0-23.0 Urea nitrogen [Mass/volume] in Serum or Plasma --post dialysis 2024-12-15 14:58:09 20 mg/dL F 9.0-23.0 Urea nitrogen [Mass/volume] in Serum or Plasma 2024-12-15 14:43:12 56 mg/dL F 9.0-23.0 Urea nitrogen [Mass/volume] in Serum or Plasma 2024-12-15 14:43:12 56 mg/dL F 9.0-23.0 BSA ANAND 2024-12-13 12:50:57 1.7 sq m F TBW ([facility]) 2024-12-13 12:50:57 30.97 Liters F PATIENT AGE 2024-12-13 12:50:57 54 Years F Total Kt/V 2024-12-13 12:50:57 1.07 F KT/V PRESCRIBED 2024-12-13 12:50:57 2.03 F TOTAL HOURS/WEEK DIALYSIS 2024-12-13 12:50:57 8 hrs F eKt/V 2024-12-13 12:50:57 0.92 F Residual kt/v 2024-12-13 12:50:57 F WEIGHT - POST DAY 1 2024-12-13 12:50:57 60.3 kg F VM (KT/V MEAN VOL) 2024-12-13 12:50:57 46.7 F URR% 2024-12-13 12:50:57 61 % F PRESCRIBED DAYS/WEEK 2024-12-13 12:50:57 3 Day/Wk F DIALYZER FLOW-QD 2024-12-13 12:50:57 800 mL/min F Std Renal KT/V 2024-12-13 12:50:57 N/A F Dialyzer JEANINE 2024-12-13 12:50:57 1455 Calc F BLOOD FLOW-QWB 2024-12-13 12:50:57 350 F stdKT/V Total 2024-12-13 12:50:57 N/A F CURRENT KRU 2024-12-13 12:50:57 F spKt/V 2024-12-13 12:50:57 1.07 F WEIGHT (KG) 2024-12-13 12:50:57 60 kg F stdKt/V (DIAL) 2024-12-13 12:50:57 N/A F LENGTH OF DIALYSIS 2024-12-13 12:50:57 190 min F nPCR 2024-12-13 12:50:57 0.91 G/KG/D F HEIGHT IN INCHES 2024-12-13 12:50:57 67 Inches F WEIGHT - PRE DAY 1 2024-12-13 12:50:57 62.6 kg F AMPUTATE FACTOR 2024-12-13 12:50:57 0 F VT (KT/V TX VOL) 2024-12-13 12:50:57 49.1 L F KT/V PRESCRIBED 2024-12-13 12:50:57 2.03 F Total Kt/V 2024-12-13 12:50:57 1.07 F TOTAL HOURS/WEEK DIALYSIS 2024-12-13 12:50:57 8 hrs F PATIENT AGE 2024-12-13 12:50:57 54 Years F eKt/V 2024-12-13 12:50:57 0.92 F TBW ([facility]) 2024-12-13 12:50:57 30.97 Liters F BSA ANAND 2024-12-13 12:50:57 1.7 sq m F CURRENT KRU 2024-12-13 12:50:57 F WEIGHT - POST DAY 1 2024-12-13 12:50:57 60.3 kg F WEIGHT (KG) 2024-12-13 12:50:57 60 kg F Std Renal KT/V 2024-12-13 12:50:57 N/A F stdKT/V Total 2024-12-13 12:50:57 N/A F Dialyzer JEANINE 2024-12-13 12:50:57 1455 Calc F URR% 2024-12-13 12:50:57 61 % F spKt/V 2024-12-13 12:50:57 1.07 F PRESCRIBED DAYS/WEEK 2024-12-13 12:50:57 3 Day/Wk F DIALYZER FLOW-QD 2024-12-13 12:50:57 800 mL/min F BLOOD FLOW-QWB 2024-12-13 12:50:57 350 F VM (KT/V MEAN VOL) 2024-12-13 12:50:57 46.7 F Residual kt/v 2024-12-13 12:50:57 F stdKt/V (DIAL) 2024-12-13 12:50:57 N/A F nPCR 2024-12-13 12:50:57 0.91 G/KG/D F VT (KT/V TX VOL) 2024-12-13 12:50:57 49.1 L F WEIGHT - PRE DAY 1 2024-12-13 12:50:57 62.6 kg F HEIGHT IN INCHES 2024-12-13 12:50:57 67 Inches F AMPUTATE FACTOR 2024-12-13 12:50:57 0 F LENGTH OF DIALYSIS 2024-12-13 12:50:57 190 min F Urea nitrogen [Mass/volume] in Serum or Plasma 2024-12-13 12:49:19 56 mg/dL F 9.0-23.0 Urea nitrogen [Mass/volume] in Serum or Plasma 2024-12-13 12:49:19 56 mg/dL F 9.0-23.0 Urea nitrogen [Mass/volume] in Serum or Plasma --post dialysis 2024-12-13 12:33:14 22 mg/dL F 9.0-23.0 Urea nitrogen [Mass/volume] in Serum or Plasma --post dialysis 2024-12-13 12:33:14 22 mg/dL F 9.0-23.0 VT (KT/V TX VOL) 2024-12-11 13:43:12 48.6 L F WEIGHT - POST DAY 1 2024-12-11 13:43:12 62 kg F Residual kt/v 2024-12-11 13:43:12 F PRESCRIBED DAYS/WEEK 2024-12-11 13:43:12 3 Day/Wk F URR% 2024-12-11 13:43:12 60 % F BSA ANAND 2024-12-11 13:43:12 1.7 sq m F BLOOD FLOW-QWB 2024-12-11 13:43:12 350 F nPCR 2024-12-11 13:43:12 0.82 G/KG/D F TBW ([facility]) 2024-12-11 13:43:12 31.38 Liters F Total Kt/V 2024-12-11 13:43:12 1.05 F TOTAL HOURS/WEEK DIALYSIS 2024-12-11 13:43:12 8 hrs F eKt/V 2024-12-11 13:43:12 0.9 F Dialyzer JEANINE 2024-12-11 13:43:12 1455 Calc F stdKT/V Total 2024-12-11 13:43:12 N/A F PATIENT AGE 2024-12-11 13:43:12 54 Years F spKt/V 2024-12-11 13:43:12 1.05 F AMPUTATE FACTOR 2024-12-11 13:43:12 0 F LENGTH OF DIALYSIS 2024-12-11 13:43:12 196 min F WEIGHT (KG) 2024-12-11 13:43:12 60 kg F stdKt/V (DIAL) 2024-12-11 13:43:12 N/A F WEIGHT - PRE DAY 1 2024-12-11 13:43:12 64.3 kg F KT/V PRESCRIBED 2024-12-11 13:43:12 2.09 F DIALYZER FLOW-QD 2024-12-11 13:43:12 478 mL/min F Std Renal KT/V 2024-12-11 13:43:12 N/A F CURRENT KRU 2024-12-11 13:43:12 F HEIGHT IN INCHES 2024-12-11 13:43:12 67 Inches F VM (KT/V MEAN VOL) 2024-12-11 13:43:12 45.9 F nPCR 2024-12-11 13:43:12 0.82 G/KG/D F URR% 2024-12-11 13:43:12 60 % F BLOOD FLOW-QWB 2024-12-11 13:43:12 350 F PRESCRIBED DAYS/WEEK 2024-12-11 13:43:12 3 Day/Wk F BSA ANAND 2024-12-11 13:43:12 1.7 sq m F VT (KT/V TX VOL) 2024-12-11 13:43:12 48.6 L F WEIGHT - POST DAY 1 2024-12-11 13:43:12 62 kg F TBW ([facility]) 2024-12-11 13:43:12 31.38 Liters F Residual kt/v 2024-12-11 13:43:12 F Dialyzer JEANINE 2024-12-11 13:43:12 1455 Calc F AMPUTATE FACTOR 2024-12-11 13:43:12 0 F spKt/V 2024-12-11 13:43:12 1.05 F DIALYZER FLOW-QD 2024-12-11 13:43:12 478 mL/min F stdKT/V Total 2024-12-11 13:43:12 N/A F KT/V PRESCRIBED 2024-12-11 13:43:12 2.09 F PATIENT AGE 2024-12-11 13:43:12 54 Years F stdKt/V (DIAL) 2024-12-11 13:43:12 N/A F WEIGHT (KG) 2024-12-11 13:43:12 60 kg F WEIGHT - PRE DAY 1 2024-12-11 13:43:12 64.3 kg F TOTAL HOURS/WEEK DIALYSIS 2024-12-11 13:43:12 8 hrs F LENGTH OF DIALYSIS 2024-12-11 13:43:12 196 min F Total Kt/V 2024-12-11 13:43:12 1.05 F CURRENT KRU 2024-12-11 13:43:12 F eKt/V 2024-12-11 13:43:12 0.9 F HEIGHT IN INCHES 2024-12-11 13:43:12 67 Inches F Std Renal KT/V 2024-12-11 13:43:12 N/A F VM (KT/V MEAN VOL) 2024-12-11 13:43:12 45.9 F Urea nitrogen [Mass/volume] in Serum or Plasma 2024-12-11 13:41:18 60 mg/dL F 9.0-23.0 Urea nitrogen [Mass/volume] in Serum or Plasma 2024-12-11 13:41:18 60 mg/dL F 9.0-23.0 Urea nitrogen [Mass/volume] in Serum or Plasma --post dialysis 2024-12-11 13:00:14 24 mg/dL F 9.0-23.0 Urea nitrogen [Mass/volume] in Serum or Plasma --post dialysis 2024-12-11 13:00:14 24 mg/dL F 9.0-23.0 HEIGHT IN INCHES 2024-12-06 13:06:56 67 Inches F Residual kt/v 2024-12-06 13:06:56 F BLOOD FLOW-QWB 2024-12-06 13:06:56 350 F Std Renal KT/V 2024-12-06 13:06:56 N/A F stdKT/V Total 2024-12-06 13:06:56 N/A F DIALYZER FLOW-QD 2024-12-06 13:06:56 800 mL/min F stdKt/V (DIAL) 2024-12-06 13:06:56 N/A F spKt/V 2024-12-06 13:06:56 0.97 F TOTAL HOURS/WEEK DIALYSIS 2024-12-06 13:06:56 9 hrs F WEIGHT - PRE DAY 1 2024-12-06 13:06:56 61 kg F eKt/V 2024-12-06 13:06:56 0.79 F BSA ANAND 2024-12-06 13:06:56 1.7 sq m F WEIGHT - POST DAY 1 2024-12-06 13:06:56 60.3 kg F CURRENT KRU 2024-12-06 13:06:56 F VT (KT/V TX VOL) 2024-12-06 13:06:56 42.8 L F URR% 2024-12-06 13:06:56 59 % F PATIENT AGE 2024-12-06 13:06:56 54 Years F nPCR 2024-12-06 13:06:56 0.64 G/KG/D F KT/V PRESCRIBED 2024-12-06 13:06:56 1.59 F Total Kt/V 2024-12-06 13:06:56 0.97 F VM (KT/V MEAN VOL) 2024-12-06 13:06:56 45 F WEIGHT (KG) 2024-12-06 13:06:56 60 kg F LENGTH OF DIALYSIS 2024-12-06 13:06:56 149 min F TBW ([facility]) 2024-12-06 13:06:56 30.97 Liters F Dialyzer JEANINE 2024-12-06 13:06:56 1455 Calc F AMPUTATE FACTOR 2024-12-06 13:06:56 0 F PRESCRIBED DAYS/WEEK 2024-12-06 13:06:56 3 Day/Wk F stdKT/V Total 2024-12-06 13:06:56 N/A F WEIGHT - PRE DAY 1 2024-12-06 13:06:56 61 kg F TOTAL HOURS/WEEK DIALYSIS 2024-12-06 13:06:56 9 hrs F Std Renal KT/V 2024-12-06 13:06:56 N/A F spKt/V 2024-12-06 13:06:56 0.97 F stdKt/V (DIAL) 2024-12-06 13:06:56 N/A F Residual kt/v 2024-12-06 13:06:56 F HEIGHT IN INCHES 2024-12-06 13:06:56 67 Inches F BLOOD FLOW-QWB 2024-12-06 13:06:56 350 F DIALYZER FLOW-QD 2024-12-06 13:06:56 800 mL/min F CURRENT KRU 2024-12-06 13:06:56 F PATIENT AGE 2024-12-06 13:06:56 54 Years F nPCR 2024-12-06 13:06:56 0.64 G/KG/D F eKt/V 2024-12-06 13:06:56 0.79 F URR% 2024-12-06 13:06:56 59 % F Total Kt/V 2024-12-06 13:06:56 0.97 F VT (KT/V TX VOL) 2024-12-06 13:06:56 42.8 L F VM (KT/V MEAN VOL) 2024-12-06 13:06:56 45 F KT/V PRESCRIBED 2024-12-06 13:06:56 1.59 F WEIGHT - POST DAY 1 2024-12-06 13:06:56 60.3 kg F BSA ANAND 2024-12-06 13:06:56 1.7 sq m F WEIGHT (KG) 2024-12-06 13:06:56 60 kg F Dialyzer JEANINE 2024-12-06 13:06:56 1455 Calc F AMPUTATE FACTOR 2024-12-06 13:06:56 0 F TBW ([facility]) 2024-12-06 13:06:56 30.97 Liters F PRESCRIBED DAYS/WEEK 2024-12-06 13:06:56 3 Day/Wk F LENGTH OF DIALYSIS 2024-12-06 13:06:56 149 min F Urea nitrogen [Mass/volume] in Serum or Plasma 2024-12-06 13:05:22 39 mg/dL F 9.0-23.0 Urea nitrogen [Mass/volume] in Serum or Plasma 2024-12-06 13:05:22 39 mg/dL F 9.0-23.0 Urea nitrogen [Mass/volume] in Serum or Plasma --post dialysis 2024-12-06 13:04:22 16 mg/dL F 9.0-23.0 Urea nitrogen [Mass/volume] in Serum or Plasma --post dialysis 2024-12-06 13:04:22 16 mg/dL F 9.0-23.0 VM (KT/V MEAN VOL) 2024-12-04 15:01:16 45.7 F LENGTH OF DIALYSIS 2024-12-04 15:01:16 194 min F WEIGHT - PRE DAY 1 2024-12-04 15:01:16 62.4 kg F AMPUTATE FACTOR 2024-12-04 15:01:16 0 F nPCR 2024-12-04 15:01:16 0.7 G/KG/D F BSA ANAND 2024-12-04 15:01:16 1.7 sq m F stdKT/V Total 2024-12-04 15:01:16 N/A F HEIGHT IN INCHES 2024-12-04 15:01:16 67 Inches F VT (KT/V TX VOL) 2024-12-04 15:01:16 49.2 L F Total Kt/V 2024-12-04 15:01:16 1.06 F URR% 2024-12-04 15:01:16 60 % F DIALYZER FLOW-QD 2024-12-04 15:01:16 800 mL/min F CURRENT KRU 2024-12-04 15:01:16 F TOTAL HOURS/WEEK DIALYSIS 2024-12-04 15:01:16 9 hrs F eKt/V 2024-12-04 15:01:16 0.91 F PRESCRIBED DAYS/WEEK 2024-12-04 15:01:16 3 Day/Wk F BLOOD FLOW-QWB 2024-12-04 15:01:16 333 F WEIGHT (KG) 2024-12-04 15:01:16 60 kg F Dialyzer JEANINE 2024-12-04 15:01:16 1455 Calc F spKt/V 2024-12-04 15:01:16 1.06 F KT/V PRESCRIBED 2024-12-04 15:01:16 2.07 F Residual kt/v 2024-12-04 15:01:16 F PATIENT AGE 2024-12-04 15:01:16 54 Years F stdKt/V (DIAL) 2024-12-04 15:01:16 N/A F TBW ([facility]) 2024-12-04 15:01:16 30.89 Liters F WEIGHT - POST DAY 1 2024-12-04 15:01:16 60 kg F Std Renal KT/V 2024-12-04 15:01:16 N/A F VT (KT/V TX VOL) 2024-12-04 15:01:16 49.2 L F WEIGHT - PRE DAY 1 2024-12-04 15:01:16 62.4 kg F BSA ANAND 2024-12-04 15:01:16 1.7 sq m F LENGTH OF DIALYSIS 2024-12-04 15:01:16 194 min F stdKT/V Total 2024-12-04 15:01:16 N/A F VM (KT/V MEAN VOL) 2024-12-04 15:01:16 45.7 F AMPUTATE FACTOR 2024-12-04 15:01:16 0 F Total Kt/V 2024-12-04 15:01:16 1.06 F nPCR 2024-12-04 15:01:16 0.7 G/KG/D F HEIGHT IN INCHES 2024-12-04 15:01:16 67 Inches F DIALYZER FLOW-QD 2024-12-04 15:01:16 800 mL/min F URR% 2024-12-04 15:01:16 60 % F WEIGHT (KG) 2024-12-04 15:01:16 60 kg F Dialyzer JEANINE 2024-12-04 15:01:16 1455 Calc F KT/V PRESCRIBED 2024-12-04 15:01:16 2.07 F PRESCRIBED DAYS/WEEK 2024-12-04 15:01:16 3 Day/Wk F eKt/V 2024-12-04 15:01:16 0.91 F TOTAL HOURS/WEEK DIALYSIS 2024-12-04 15:01:16 9 hrs F PATIENT AGE 2024-12-04 15:01:16 54 Years F BLOOD FLOW-QWB 2024-12-04 15:01:16 333 F CURRENT KRU 2024-12-04 15:01:16 F Residual kt/v 2024-12-04 15:01:16 F spKt/V 2024-12-04 15:01:16 1.06 F Std Renal KT/V 2024-12-04 15:01:16 N/A F stdKt/V (DIAL) 2024-12-04 15:01:16 N/A F WEIGHT - POST DAY 1 2024-12-04 15:01:16 60 kg F TBW ([facility]) 2024-12-04 15:01:16 30.89 Liters F Urea nitrogen [Mass/volume] in Serum or Plasma 2024-12-04 14:59:22 48 mg/dL F 9.0-23.0 Urea nitrogen [Mass/volume] in Serum or Plasma 2024-12-04 14:59:22 48 mg/dL F 9.0-23.0 Urea nitrogen [Mass/volume] in Serum or Plasma --post dialysis 2024-12-04 12:30:16 19 mg/dL F 9.0-23.0 Urea nitrogen [Mass/volume] in Serum or Plasma --post dialysis 2024-12-04 12:30:16 19 mg/dL F 9.0-23.0 stdKT/V Total 2024-12-02 00:17:12 N/A F BLOOD FLOW-QWB 2024-12-02 00:17:12 325 F nPCR 2024-12-02 00:17:12 0.73 G/KG/D F Std Renal KT/V 2024-12-02 00:17:12 N/A F WEIGHT - POST DAY 1 2024-12-02 00:17:12 59.8 kg F DIALYZER FLOW-QD 2024-12-02 00:17:12 775 mL/min F PATIENT AGE 2024-12-02 00:17:12 54 Years F WEIGHT - PRE DAY 1 2024-12-02 00:17:12 61.1 kg F WEIGHT (KG) 2024-12-02 00:17:12 60 kg F VM (KT/V MEAN VOL) 2024-12-02 00:17:12 44.6 F Residual kt/v 2024-12-02 00:17:12 F URR% 2024-12-02 00:17:12 65 % F Dialyzer JEANINE 2024-12-02 00:17:12 1455 Calc F Total Kt/V 2024-12-02 00:17:12 1.18 F eKt/V 2024-12-02 00:17:12 1 F LENGTH OF DIALYSIS 2024-12-02 00:17:12 186 min F AMPUTATE FACTOR 2024-12-02 00:17:12 0 F BSA ANAND 2024-12-02 00:17:12 1.7 sq m F HEIGHT IN INCHES 2024-12-02 00:17:12 67 Inches F KT/V PRESCRIBED 2024-12-02 00:17:12 1.99 F TOTAL HOURS/WEEK DIALYSIS 2024-12-02 00:17:12 9 hrs F VT (KT/V TX VOL) 2024-12-02 00:17:12 41.5 L F PRESCRIBED DAYS/WEEK 2024-12-02 00:17:12 3 Day/Wk F CURRENT KRU 2024-12-02 00:17:12 F TBW ([facility]) 2024-12-02 00:17:12 30.84 Liters F spKt/V 2024-12-02 00:17:12 1.18 F stdKt/V (DIAL) 2024-12-02 00:17:12 N/A F Urea nitrogen [Mass/volume] in Serum or Plasma --post dialysis 2024-12-02 00:15:18 13 mg/dL F 9.0-23.0 Urea nitrogen [Mass/volume] in Serum or Plasma 2024-12-01 16:02:24 37 mg/dL F 9.0-23.0 AMPUTATE FACTOR 2024-11-29 14:41:18 0 F Total Kt/V 2024-11-29 14:41:18 1.17 F HEIGHT IN INCHES 2024-11-29 14:41:18 67 Inches F KT/V PRESCRIBED 2024-11-29 14:41:18 2.09 F Std Renal KT/V 2024-11-29 14:41:18 N/A F DIALYZER FLOW-QD 2024-11-29 14:41:18 800 mL/min F spKt/V 2024-11-29 14:41:18 1.17 F eKt/V 2024-11-29 14:41:18 1 F BSA ANAND 2024-11-29 14:41:18 1.7 sq m F WEIGHT - PRE DAY 1 2024-11-29 14:41:18 59.7 kg F WEIGHT (KG) 2024-11-29 14:41:18 60 kg F PATIENT AGE 2024-11-29 14:41:18 54 Years F stdKt/V (DIAL) 2024-11-29 14:41:18 N/A F PRESCRIBED DAYS/WEEK 2024-11-29 14:41:18 3 Day/Wk F BLOOD FLOW-QWB 2024-11-29 14:41:18 350 F nPCR 2024-11-29 14:41:18 0.78 G/KG/D F TBW ([facility]) 2024-11-29 14:41:18 30.74 Liters F URR% 2024-11-29 14:41:18 66 % F Residual kt/v 2024-11-29 14:41:18 F VM (KT/V MEAN VOL) 2024-11-29 14:41:18 45.7 F stdKT/V Total 2024-11-29 14:41:18 N/A F VT (KT/V TX VOL) 2024-11-29 14:41:18 46.4 L F Dialyzer JEANINE 2024-11-29 14:41:18 1455 Calc F CURRENT KRU 2024-11-29 14:41:18 F TOTAL HOURS/WEEK DIALYSIS 2024-11-29 14:41:18 9 hrs F LENGTH OF DIALYSIS 2024-11-29 14:41:18 196 min F WEIGHT - POST DAY 1 2024-11-29 14:41:18 59.4 kg F AMPUTATE FACTOR 2024-11-29 14:41:18 0 F spKt/V 2024-11-29 14:41:18 1.17 F HEIGHT IN INCHES 2024-11-29 14:41:18 67 Inches F Total Kt/V 2024-11-29 14:41:18 1.17 F eKt/V 2024-11-29 14:41:18 1 F DIALYZER FLOW-QD 2024-11-29 14:41:18 800 mL/min F KT/V PRESCRIBED 2024-11-29 14:41:18 2.09 F Std Renal KT/V 2024-11-29 14:41:18 N/A F Residual kt/v 2024-11-29 14:41:18 F BSA ANAND 2024-11-29 14:41:18 1.7 sq m F URR% 2024-11-29 14:41:18 66 % F BLOOD FLOW-QWB 2024-11-29 14:41:18 350 F VM (KT/V MEAN VOL) 2024-11-29 14:41:18 45.7 F nPCR 2024-11-29 14:41:18 0.78 G/KG/D F PRESCRIBED DAYS/WEEK 2024-11-29 14:41:18 3 Day/Wk F TBW ([facility]) 2024-11-29 14:41:18 30.74 Liters F WEIGHT (KG) 2024-11-29 14:41:18 60 kg F PATIENT AGE 2024-11-29 14:41:18 54 Years F WEIGHT - PRE DAY 1 2024-11-29 14:41:18 59.7 kg F stdKt/V (DIAL) 2024-11-29 14:41:18 N/A F CURRENT KRU 2024-11-29 14:41:18 F LENGTH OF DIALYSIS 2024-11-29 14:41:18 196 min F Dialyzer JEANINE 2024-11-29 14:41:18 1455 Calc F WEIGHT - POST DAY 1 2024-11-29 14:41:18 59.4 kg F VT (KT/V TX VOL) 2024-11-29 14:41:18 46.4 L F stdKT/V Total 2024-11-29 14:41:18 N/A F TOTAL HOURS/WEEK DIALYSIS 2024-11-29 14:41:18 9 hrs F Creatinine [Mass/volume] in Serum or Plasma 2024-11-29 14:39:18 4.01 mg/dL F 0.5-1.1 Urea nitrogen [Mass/volume] in Serum or Plasma 2024-11-29 14:39:18 44 mg/dL F 9.0-23.0 Creatinine [Mass/volume] in Serum or Plasma 2024-11-29 14:39:18 4.01 mg/dL F 0.5-1.1 Urea nitrogen [Mass/volume] in Serum or Plasma 2024-11-29 14:39:18 44 mg/dL F 9.0-23.0 Urea nitrogen [Mass/volume] in Serum or Plasma --post dialysis 2024-11-29 13:42:24 15 mg/dL F 9.0-23.0 Urea nitrogen [Mass/volume] in Serum or Plasma --post dialysis 2024-11-29 13:42:24 15 mg/dL F 9.0-23.0 VT (KT/V TX VOL) 2024-11-01 14:12:08 48.6 L F PATIENT AGE 2024-11-01 14:12:08 54 Years F stdKT/V Total 2024-11-01 14:12:08 N/A F stdKt/V (DIAL) 2024-11-01 14:12:08 N/A F DIALYZER FLOW-QD 2024-11-01 14:12:08 500 mL/min F URR% 2024-11-01 14:12:08 59 % F BLOOD FLOW-QWB 2024-11-01 14:12:08 350 F TBW ([facility]) 2024-11-01 14:12:08 30.94 Liters F eKt/V 2024-11-01 14:12:08 0.87 F PRESCRIBED DAYS/WEEK 2024-11-01 14:12:08 3 Day/Wk F Total Kt/V 2024-11-01 14:12:08 1.01 F WEIGHT - PRE DAY 1 2024-11-01 14:12:08 62.3 kg F AMPUTATE FACTOR 2024-11-01 14:12:08 0 F WEIGHT (KG) 2024-11-01 14:12:08 60 kg F Dialyzer JEANINE 2024-11-01 14:12:08 1264 Calc F VM (KT/V MEAN VOL) 2024-11-01 14:12:08 45.1 F nPCR 2024-11-01 14:12:08 0.69 G/KG/D F TOTAL HOURS/WEEK DIALYSIS 2024-11-01 14:12:08 7 hrs F Residual kt/v 2024-11-01 14:12:08 F LENGTH OF DIALYSIS 2024-11-01 14:12:08 193 min F CURRENT KRU 2024-11-01 14:12:08 F spKt/V 2024-11-01 14:12:08 1.01 F KT/V PRESCRIBED 2024-11-01 14:12:08 1.9 F BSA ANAND 2024-11-01 14:12:08 1.7 sq m F Std Renal KT/V 2024-11-01 14:12:08 N/A F WEIGHT - POST DAY 1 2024-11-01 14:12:08 60.2 kg F HEIGHT IN INCHES 2024-11-01 14:12:08 67 Inches F DIALYZER FLOW-QD 2024-11-01 14:12:08 500 mL/min F PATIENT AGE 2024-11-01 14:12:08 54 Years F stdKt/V (DIAL) 2024-11-01 14:12:08 N/A F VT (KT/V TX VOL) 2024-11-01 14:12:08 48.6 L F stdKT/V Total 2024-11-01 14:12:08 N/A F AMPUTATE FACTOR 2024-11-01 14:12:08 0 F URR% 2024-11-01 14:12:08 59 % F nPCR 2024-11-01 14:12:08 0.69 G/KG/D F PRESCRIBED DAYS/WEEK 2024-11-01 14:12:08 3 Day/Wk F Total Kt/V 2024-11-01 14:12:08 1.01 F Dialyzer JEANINE 2024-11-01 14:12:08 1264 Calc F TBW ([facility]) 2024-11-01 14:12:08 30.94 Liters F eKt/V 2024-11-01 14:12:08 0.87 F VM (KT/V MEAN VOL) 2024-11-01 14:12:08 45.1 F WEIGHT - PRE DAY 1 2024-11-01 14:12:08 62.3 kg F WEIGHT (KG) 2024-11-01 14:12:08 60 kg F BLOOD FLOW-QWB 2024-11-01 14:12:08 350 F HEIGHT IN INCHES 2024-11-01 14:12:08 67 Inches F LENGTH OF DIALYSIS 2024-11-01 14:12:08 193 min F CURRENT KRU 2024-11-01 14:12:08 F Residual kt/v 2024-11-01 14:12:08 F TOTAL HOURS/WEEK DIALYSIS 2024-11-01 14:12:08 7 hrs F KT/V PRESCRIBED 2024-11-01 14:12:08 1.9 F spKt/V 2024-11-01 14:12:08 1.01 F BSA ANAND 2024-11-01 14:12:08 1.7 sq m F WEIGHT - POST DAY 1 2024-11-01 14:12:08 60.2 kg F Std Renal KT/V 2024-11-01 14:12:08 N/A F DIALYZER FLOW-QD 2024-11-01 14:12:08 500 mL/min F PATIENT AGE 2024-11-01 14:12:08 54 Years F stdKt/V (DIAL) 2024-11-01 14:12:08 N/A F stdKT/V Total 2024-11-01 14:12:08 N/A F PRESCRIBED DAYS/WEEK 2024-11-01 14:12:08 3 Day/Wk F VT (KT/V TX VOL) 2024-11-01 14:12:08 48.6 L F TBW ([facility]) 2024-11-01 14:12:08 30.94 Liters F BLOOD FLOW-QWB 2024-11-01 14:12:08 350 F URR% 2024-11-01 14:12:08 59 % F AMPUTATE FACTOR 2024-11-01 14:12:08 0 F WEIGHT (KG) 2024-11-01 14:12:08 60 kg F WEIGHT - PRE DAY 1 2024-11-01 14:12:08 62.3 kg F nPCR 2024-11-01 14:12:08 0.69 G/KG/D F Dialyzer JEANINE 2024-11-01 14:12:08 1264 Calc F eKt/V 2024-11-01 14:12:08 0.87 F Total Kt/V 2024-11-01 14:12:08 1.01 F VM (KT/V MEAN VOL) 2024-11-01 14:12:08 45.1 F HEIGHT IN INCHES 2024-11-01 14:12:08 67 Inches F Std Renal KT/V 2024-11-01 14:12:08 N/A F LENGTH OF DIALYSIS 2024-11-01 14:12:08 193 min F CURRENT KRU 2024-11-01 14:12:08 F WEIGHT - POST DAY 1 2024-11-01 14:12:08 60.2 kg F BSA ANAND 2024-11-01 14:12:08 1.7 sq m F KT/V PRESCRIBED 2024-11-01 14:12:08 1.9 F Residual kt/v 2024-11-01 14:12:08 F spKt/V 2024-11-01 14:12:08 1.01 F TOTAL HOURS/WEEK DIALYSIS 2024-11-01 14:12:08 7 hrs F Urea nitrogen [Mass/volume] in Serum or Plasma --post dialysis 2024-11-01 14:10:19 17 mg/dL F 9.0-23.0 Urea nitrogen [Mass/volume] in Serum or Plasma --post dialysis 2024-11-01 14:10:19 17 mg/dL F 9.0-23.0 Urea nitrogen [Mass/volume] in Serum or Plasma --post dialysis 2024-11-01 14:10:19 17 mg/dL F 9.0-23.0 Creatinine [Mass/volume] in Serum or Plasma 2024-11-01 13:36:15 4.11 mg/dL F 0.5-1.1 Urea nitrogen [Mass/volume] in Serum or Plasma 2024-11-01 13:36:15 41 mg/dL F 9.0-23.0 Creatinine [Mass/volume] in Serum or Plasma 2024-11-01 13:36:15 4.11 mg/dL F 0.5-1.1 Urea nitrogen [Mass/volume] in Serum or Plasma 2024-11-01 13:36:15 41 mg/dL F 9.0-23.0 Creatinine [Mass/volume] in Serum or Plasma 2024-11-01 13:36:15 4.11 mg/dL F 0.5-1.1 Urea nitrogen [Mass/volume] in Serum or Plasma 2024-11-01 13:36:15 41 mg/dL F 9.0-23.0 Dialyzer JEANINE 2024-10-05 15:06:10 1264 Calc F AMPUTATE FACTOR 2024-10-05 15:06:10 0 F PRESCRIBED DAYS/WEEK 2024-10-05 15:06:10 3 Day/Wk F BSA ANAND 2024-10-05 15:06:10 1.7 sq m F VT (KT/V TX VOL) 2024-10-05 15:06:10 41.7 L F TBW ([facility]) 2024-10-05 15:06:10 30.6 Liters F BLOOD FLOW-QWB 2024-10-05 15:06:10 313 F LENGTH OF DIALYSIS 2024-10-05 15:06:10 197 min F WEIGHT (KG) 2024-10-05 15:06:10 60 kg F URR% 2024-10-05 15:06:10 61 % F HEIGHT IN INCHES 2024-10-05 15:06:10 67 Inches F CURRENT KRU 2024-10-05 15:06:10 F nPCR 2024-10-05 15:06:10 0.6 G/KG/D F stdKt/V (DIAL) 2024-10-05 15:06:10 N/A F eKt/V 2024-10-05 15:06:10 0.96 F VM (KT/V MEAN VOL) 2024-10-05 15:06:10 43.1 F DIALYZER FLOW-QD 2024-10-05 15:06:10 478 mL/min F stdKT/V Total 2024-10-05 15:06:10 N/A F spKt/V 2024-10-05 15:06:10 1.13 F PATIENT AGE 2024-10-05 15:06:10 54 Years F Residual kt/v 2024-10-05 15:06:10 F KT/V PRESCRIBED 2024-10-05 15:06:10 1.94 F WEIGHT - PRE DAY 1 2024-10-05 15:06:10 61.6 kg F WEIGHT - POST DAY 1 2024-10-05 15:06:10 58.8 kg F TOTAL HOURS/WEEK DIALYSIS 2024-10-05 15:06:10 9 hrs F Std Renal KT/V 2024-10-05 15:06:10 N/A F Total Kt/V 2024-10-05 15:06:10 1.13 F Dialyzer JEANINE 2024-10-05 15:06:10 1264 Calc F VT (KT/V TX VOL) 2024-10-05 15:06:10 41.7 L F PRESCRIBED DAYS/WEEK 2024-10-05 15:06:10 3 Day/Wk F TBW ([facility]) 2024-10-05 15:06:10 30.6 Liters F AMPUTATE FACTOR 2024-10-05 15:06:10 0 F BSA ANAND 2024-10-05 15:06:10 1.7 sq m F stdKT/V Total 2024-10-05 15:06:10 N/A F eKt/V 2024-10-05 15:06:10 0.96 F LENGTH OF DIALYSIS 2024-10-05 15:06:10 197 min F CURRENT KRU 2024-10-05 15:06:10 F DIALYZER FLOW-QD 2024-10-05 15:06:10 478 mL/min F WEIGHT (KG) 2024-10-05 15:06:10 60 kg F HEIGHT IN INCHES 2024-10-05 15:06:10 67 Inches F nPCR 2024-10-05 15:06:10 0.6 G/KG/D F BLOOD FLOW-QWB 2024-10-05 15:06:10 313 F VM (KT/V MEAN VOL) 2024-10-05 15:06:10 43.1 F URR% 2024-10-05 15:06:10 61 % F stdKt/V (DIAL) 2024-10-05 15:06:10 N/A F spKt/V 2024-10-05 15:06:10 1.13 F Residual kt/v 2024-10-05 15:06:10 F TOTAL HOURS/WEEK DIALYSIS 2024-10-05 15:06:10 9 hrs F WEIGHT - PRE DAY 1 2024-10-05 15:06:10 61.6 kg F Total Kt/V 2024-10-05 15:06:10 1.13 F PATIENT AGE 2024-10-05 15:06:10 54 Years F KT/V PRESCRIBED 2024-10-05 15:06:10 1.94 F WEIGHT - POST DAY 1 2024-10-05 15:06:10 58.8 kg F Std Renal KT/V 2024-10-05 15:06:10 N/A F Urea nitrogen [Mass/volume] in Serum or Plasma --post dialysis 2024-10-05 15:04:20 12 mg/dL F 9.0-23.0 Urea nitrogen [Mass/volume] in Serum or Plasma --post dialysis 2024-10-05 15:04:20 12 mg/dL F 9.0-23.0 Creatinine [Mass/volume] in Serum or Plasma 2024-10-05 14:30:23 4.23 mg/dL F 0.5-1.1 Urea nitrogen [Mass/volume] in Serum or Plasma 2024-10-05 14:30:23 31 mg/dL F 9.0-23.0 Creatinine [Mass/volume] in Serum or Plasma 2024-10-05 14:30:23 4.23 mg/dL F 0.5-1.1 Urea nitrogen [Mass/volume] in Serum or Plasma 2024-10-05 14:30:23 31 mg/dL F 9.0-23.0 CURRENT KRU 2024-09-01 19:24:52 F KT/V PRESCRIBED 2024-09-01 19:24:52 1.93 F URR% 2024-09-01 19:24:52 63 % F WEIGHT (KG) 2024-09-01 19:24:52 60 kg F WEIGHT - PRE DAY 1 2024-09-01 19:24:52 64.2 kg F eKt/V 2024-09-01 19:24:52 0.98 F PATIENT AGE 2024-09-01 19:24:52 54 Years F HEIGHT IN INCHES 2024-09-01 19:24:52 67 Inches F spKt/V 2024-09-01 19:24:52 1.15 F BSA ANAND 2024-09-01 19:24:52 1.7 sq m F VT (KT/V TX VOL) 2024-09-01 19:24:52 41.2 L F PRESCRIBED DAYS/WEEK 2024-09-01 19:24:52 3 Day/Wk F stdKT/V Total 2024-09-01 19:24:52 N/A F BLOOD FLOW-QWB 2024-09-01 19:24:52 317 F WEIGHT - POST DAY 1 2024-09-01 19:24:52 61.1 kg F LENGTH OF DIALYSIS 2024-09-01 19:24:52 196 min F VM (KT/V MEAN VOL) 2024-09-01 19:24:52 44.6 F nPCR 2024-09-01 19:24:52 0.46 G/KG/D F TOTAL HOURS/WEEK DIALYSIS 2024-09-01 19:24:52 6 hrs F Residual kt/v 2024-09-01 19:24:52 F Std Renal KT/V 2024-09-01 19:24:52 N/A F AMPUTATE FACTOR 2024-09-01 19:24:52 0 F eKt/V 2024-09-01 19:24:52 0.98 F TBW ([facility]) 2024-09-01 19:24:52 31.16 Liters F stdKt/V (DIAL) 2024-09-01 19:24:52 N/A F KT/V PRESCRIBED 2024-09-01 19:24:52 1.93 F WEIGHT - PRE DAY 1 2024-09-01 19:24:52 64.2 kg F CURRENT KRU 2024-09-01 19:24:52 F Dialyzer JEANINE 2024-09-01 19:24:52 1264 Calc F DIALYZER FLOW-QD 2024-09-01 19:24:52 500 mL/min F Total Kt/V 2024-09-01 19:24:52 1.15 F URR% 2024-09-01 19:24:52 63 % F BSA ANAND 2024-09-01 19:24:52 1.7 sq m F PRESCRIBED DAYS/WEEK 2024-09-01 19:24:52 3 Day/Wk F VT (KT/V TX VOL) 2024-09-01 19:24:52 41.2 L F spKt/V 2024-09-01 19:24:52 1.15 F WEIGHT (KG) 2024-09-01 19:24:52 60 kg F PATIENT AGE 2024-09-01 19:24:52 54 Years F HEIGHT IN INCHES 2024-09-01 19:24:52 67 Inches F VM (KT/V MEAN VOL) 2024-09-01 19:24:52 44.6 F stdKT/V Total 2024-09-01 19:24:52 N/A F LENGTH OF DIALYSIS 2024-09-01 19:24:52 196 min F BLOOD FLOW-QWB 2024-09-01 19:24:52 317 F WEIGHT - POST DAY 1 2024-09-01 19:24:52 61.1 kg F TOTAL HOURS/WEEK DIALYSIS 2024-09-01 19:24:52 6 hrs F nPCR 2024-09-01 19:24:52 0.46 G/KG/D F Residual kt/v 2024-09-01 19:24:52 F TBW ([facility]) 2024-09-01 19:24:52 31.16 Liters F Std Renal KT/V 2024-09-01 19:24:52 N/A F Total Kt/V 2024-09-01 19:24:52 1.15 F stdKt/V (DIAL) 2024-09-01 19:24:52 N/A F AMPUTATE FACTOR 2024-09-01 19:24:52 0 F Dialyzer JEANINE 2024-09-01 19:24:52 1264 Calc F DIALYZER FLOW-QD 2024-09-01 19:24:52 500 mL/min F Creatinine [Mass/volume] in Serum or Plasma 2024-09-01 19:23:14 3.92 mg/dL F 0.5-1.1 Urea nitrogen [Mass/volume] in Serum or Plasma 2024-09-01 19:23:14 35 mg/dL F 9.0-23.0 Creatinine [Mass/volume] in Serum or Plasma 2024-09-01 19:23:14 3.92 mg/dL F 0.5-1.1 Urea nitrogen [Mass/volume] in Serum or Plasma 2024-09-01 19:23:14 35 mg/dL F 9.0-23.0 Urea nitrogen [Mass/volume] in Serum or Plasma --post dialysis 2024-09-01 18:08:08 13 mg/dL F 9.0-23.0 Urea nitrogen [Mass/volume] in Serum or Plasma --post dialysis 2024-09-01 18:08:08 13 mg/dL F 9.0-23.0 PATIENT AGE 2024-08-11 16:58:49 54 Years F VM (KT/V MEAN VOL) 2024-08-11 16:58:49 45.7 F CURRENT KRU 2024-08-11 16:58:49 F stdKt/V (DIAL) 2024-08-11 16:58:49 2.71 F WEIGHT (KG) 2024-08-11 16:58:49 60 kg F Dialyzer JEANINE 2024-08-11 16:58:49 1264 Calc F stdKT/V Total 2024-08-11 16:58:49 2.71 F TOTAL HOURS/WEEK DIALYSIS 2024-08-11 16:58:49 12 hrs F spKt/V 2024-08-11 16:58:49 1.24 F Total Kt/V 2024-08-11 16:58:49 N/A F AMPUTATE FACTOR 2024-08-11 16:58:49 0 F URR% 2024-08-11 16:58:49 64 % F Std Renal KT/V 2024-08-11 16:58:49 F PRESCRIBED DAYS/WEEK 2024-08-11 16:58:49 3 Day/Wk F VT (KT/V TX VOL) 2024-08-11 16:58:49 37.7 L F Residual kt/v 2024-08-11 16:58:49 N/A F LENGTH OF DIALYSIS 2024-08-11 16:58:49 203 min F BLOOD FLOW-QWB 2024-08-11 16:58:49 294 F nPCR 2024-08-11 16:58:49 0.92 G/KG/D F KT/V PRESCRIBED 2024-08-11 16:58:49 1.99 F TBW ([facility]) 2024-08-11 16:58:49 30.82 Liters F eKt/V 2024-08-11 16:58:49 1.05 F WEIGHT - PRE DAY 1 2024-08-11 16:58:49 62 kg F DIALYZER FLOW-QD 2024-08-11 16:58:49 480 mL/min F WEIGHT - POST DAY 1 2024-08-11 16:58:49 59.7 kg F HEIGHT IN INCHES 2024-08-11 16:58:49 67 Inches F [place] MICHEL 2024-08-11 16:58:49 1.7 sq m F Urea nitrogen [Mass/volume] in Serum or Plasma --post dialysis 2024-08-11 16:57:10 13 mg/dL F 9.0-23.0 Creatinine [Mass/volume] in Serum or Plasma 2024-08-11 16:36:22 3.41 mg/dL F 0.5-1.1 Urea nitrogen [Mass/volume] in Serum or Plasma 2024-08-11 16:36:22 36 mg/dL F 9.0-23.0 URR% 2024-08-10 08:36:41 F Canceled - Specimen not received 5 days past draw date Urea nitrogen [Mass/volume] in Serum or Plasma --post dialysis 2024-08-10 08:23:31 F Canceled - Specimen not received 5 days past draw date Creatinine [Mass/volume] in Serum or Plasma 2024-08-10 08:23:28 F Canceled - Specimen not received 5 days past draw date Urea nitrogen [Mass/volume] in Serum or Plasma 2024-08-10 08:23:28 F Canceled - Specimen not received 5 days past draw date AMPUTATE FACTOR 2024-08-05 07:06:43 0 F PATIENT AGE 2024-08-05 07:06:43 54 Years F WEIGHT (KG) 2024-08-05 07:06:43 58.5 kg F HEIGHT IN INCHES 2024-08-05 07:06:43 67 Inches F WEIGHT - PRE DAY 1 2024-07-05 16:15:59 68.3 kg F WEIGHT (KG) 2024-07-05 16:15:59 59 kg F WEIGHT - POST DAY 1 2024-07-05 16:15:59 66.2 kg F stdKT/V Total 2024-07-05 16:15:59 N/A F KT/V PRESCRIBED 2024-07-05 16:15:59 2.16 F nPCR 2024-07-05 16:15:59 0.49 G/KG/D F Total Kt/V 2024-07-05 16:15:59 1.04 F CURRENT KRU 2024-07-05 16:15:59 F eKt/V 2024-07-05 16:15:59 0.91 F AMPUTATE FACTOR 2024-07-05 16:15:59 0 F DIALYZER FLOW-QD 2024-07-05 16:15:59 500 mL/min F TBW ([facility]) 2024-07-05 16:15:59 32.42 Liters F BSA ANAND 2024-07-05 16:15:59 1.68 sq m F PRESCRIBED DAYS/WEEK 2024-07-05 16:15:59 3 Day/Wk F URR% 2024-07-05 16:15:59 62 % F Residual kt/v 2024-07-05 16:15:59 F LENGTH OF DIALYSIS 2024-07-05 16:15:59 220 min F Dialyzer JEANINE 2024-07-05 16:15:59 1218 Calc F spKt/V 2024-07-05 16:15:59 1.04 F VT (KT/V TX VOL) 2024-07-05 16:15:59 53.1 L F VM (KT/V MEAN VOL) 2024-07-05 16:15:59 526.7 F Std Renal KT/V 2024-07-05 16:15:59 N/A F BLOOD FLOW-QWB 2024-07-05 16:15:59 350 F TOTAL HOURS/WEEK DIALYSIS 2024-07-05 16:15:59 3 hrs F PATIENT AGE 2024-07-05 16:15:59 54 Years F stdKt/V (DIAL) 2024-07-05 16:15:59 N/A F HEIGHT IN INCHES 2024-07-05 16:15:59 67 Inches F nPCR 2024-07-05 16:15:59 0.49 G/KG/D F stdKT/V Total 2024-07-05 16:15:59 N/A F Total Kt/V 2024-07-05 16:15:59 1.04 F KT/V PRESCRIBED 2024-07-05 16:15:59 2.16 F WEIGHT - PRE DAY 1 2024-07-05 16:15:59 68.3 kg F WEIGHT - POST DAY 1 2024-07-05 16:15:59 66.2 kg F WEIGHT (KG) 2024-07-05 16:15:59 59 kg F LENGTH OF DIALYSIS 2024-07-05 16:15:59 220 min F PRESCRIBED DAYS/WEEK 2024-07-05 16:15:59 3 Day/Wk F AMPUTATE FACTOR 2024-07-05 16:15:59 0 F VT (KT/V TX VOL) 2024-07-05 16:15:59 53.1 L F URR% 2024-07-05 16:15:59 62 % F BSA ANAND 2024-07-05 16:15:59 1.68 sq m F Dialyzer JEANINE 2024-07-05 16:15:59 1218 Calc F Residual kt/v 2024-07-05 16:15:59 F eKt/V 2024-07-05 16:15:59 0.91 F TBW ([place]) 2024-07-05 16:15:59 32.42 Liters F DIALYZER FLOW-QD 2024-07-05 16:15:59 500 mL/min F CURRENT KRU 2024-07-05 16:15:59 F spKt/V 2024-07-05 16:15:59 1.04 F stdKt/V (DIAL) 2024-07-05 16:15:59 N/A F VM (KT/V MEAN VOL) 2024-07-05 16:15:59 526.7 F BLOOD FLOW-QWB 2024-07-05 16:15:59 350 F PATIENT AGE 2024-07-05 16:15:59 54 Years F HEIGHT IN INCHES 2024-07-05 16:15:59 67 Inches F TOTAL HOURS/WEEK DIALYSIS 2024-07-05 16:15:59 3 hrs F Std Renal KT/V 2024-07-05 16:15:59 N/A F Urea nitrogen [Mass/volume] in Serum or Plasma --post dialysis 2024-07-05 16:14:16 31 mg/dL F 9.0-23.0 Urea nitrogen [Mass/volume] in Serum or Plasma --post dialysis 2024-07-05 16:14:16 31 mg/dL F 9.0-23.0 Creatinine [Mass/volume] in Serum or Plasma 2024-07-05 01:25:42 4.47 mg/dL F 0.5-1.1 Urea nitrogen [Mass/volume] in Serum or Plasma 2024-07-05 01:25:42 81 mg/dL F 9.0-23.0 Creatinine [Mass/volume] in Serum or Plasma 2024-07-05 01:25:42 4.47 mg/dL F 0.5-1.1 Urea nitrogen [Mass/volume] in Serum or Plasma 2024-07-05 01:25:42 81 mg/dL F 9.0-23.0 spKt/V 2024-06-08 15:55:54 1.16 F CURRENT KRU 2024-06-08 15:55:54 F HEIGHT IN INCHES 2024-06-08 15:55:54 67 Inches F nPCR 2024-06-08 15:55:54 0.57 G/KG/D F Residual kt/v 2024-06-08 15:55:54 F PRESCRIBED DAYS/WEEK 2024-06-08 15:55:54 3 Day/Wk F TOTAL HOURS/WEEK DIALYSIS 2024-06-08 15:55:54 3 hrs F URR% 2024-06-08 15:55:54 67 % F VT (KT/V TX VOL) 2024-06-08 15:55:54 39.9 L F stdKt/V (DIAL) 2024-06-08 15:55:54 N/A F WEIGHT - PRE DAY 1 2024-06-08 15:55:54 58.3 kg F KT/V PRESCRIBED 2024-06-08 15:55:54 1.9 F Total Kt/V 2024-06-08 15:55:54 1.16 F LENGTH OF DIALYSIS 2024-06-08 15:55:54 201 min F VM (KT/V MEAN VOL) 2024-06-08 15:55:54 526.7 F BLOOD FLOW-QWB 2024-06-08 15:55:54 320 F eKt/V 2024-06-08 15:55:54 0.99 F AMPUTATE FACTOR 2024-06-08 15:55:54 0 F TBW ([place]) 2024-06-08 15:55:54 30.37 Liters F BSA ANAND 2024-06-08 15:55:54 1.68 sq m F stdKT/V Total 2024-06-08 15:55:54 N/A F Std Renal KT/V 2024-06-08 15:55:54 N/A F WEIGHT (KG) 2024-06-08 15:55:54 58.5 kg F WEIGHT - POST DAY 1 2024-06-08 15:55:54 57.9 kg F DIALYZER FLOW-QD 2024-06-08 15:55:54 500 mL/min F Dialyzer JEANINE 2024-06-08 15:55:54 1025 Calc F PATIENT AGE 2024-06-08 15:55:54 54 Years F spKt/V 2024-06-08 15:55:54 1.16 F HEIGHT IN INCHES 2024-06-08 15:55:54 67 Inches F TOTAL HOURS/WEEK DIALYSIS 2024-06-08 15:55:54 3 hrs F PRESCRIBED DAYS/WEEK 2024-06-08 15:55:54 3 Day/Wk F nPCR 2024-06-08 15:55:54 0.57 G/KG/D F Residual kt/v 2024-06-08 15:55:54 F CURRENT KRU 2024-06-08 15:55:54 F Total Kt/V 2024-06-08 15:55:54 1.16 F KT/V PRESCRIBED 2024-06-08 15:55:54 1.9 F WEIGHT - PRE DAY 1 2024-06-08 15:55:54 58.3 kg F TBW ([place]) 2024-06-08 15:55:54 30.37 Liters F eKt/V 2024-06-08 15:55:54 0.99 F VT (KT/V TX VOL) 2024-06-08 15:55:54 39.9 L F BLOOD FLOW-QWB 2024-06-08 15:55:54 320 F LENGTH OF DIALYSIS 2024-06-08 15:55:54 201 min F VM (KT/V MEAN VOL) 2024-06-08 15:55:54 526.7 F URR% 2024-06-08 15:55:54 67 % F stdKt/V (DIAL) 2024-06-08 15:55:54 N/A F AMPUTATE FACTOR 2024-06-08 15:55:54 0 F BSA ANAND 2024-06-08 15:55:54 1.68 sq m F Dialyzer JEANINE 2024-06-08 15:55:54 1025 Calc F DIALYZER FLOW-QD 2024-06-08 15:55:54 500 mL/min F stdKT/V Total 2024-06-08 15:55:54 N/A F WEIGHT - POST DAY 1 2024-06-08 15:55:54 57.9 kg F WEIGHT (KG) 2024-06-08 15:55:54 58.5 kg F PATIENT AGE 2024-06-08 15:55:54 54 Years F Std Renal KT/V 2024-06-08 15:55:54 N/A F Residual kt/v 2024-06-08 15:55:54 F TOTAL HOURS/WEEK DIALYSIS 2024-06-08 15:55:54 3 hrs F HEIGHT IN INCHES 2024-06-08 15:55:54 67 Inches F CURRENT KRU 2024-06-08 15:55:54 F nPCR 2024-06-08 15:55:54 0.57 G/KG/D F PRESCRIBED DAYS/WEEK 2024-06-08 15:55:54 3 Day/Wk F VM (KT/V MEAN VOL) 2024-06-08 15:55:54 526.7 F spKt/V 2024-06-08 15:55:54 1.16 F Total Kt/V 2024-06-08 15:55:54 1.16 F LENGTH OF DIALYSIS 2024-06-08 15:55:54 201 min F WEIGHT - PRE DAY 1 2024-06-08 15:55:54 58.3 kg F VT (KT/V TX VOL) 2024-06-08 15:55:54 39.9 L F URR% 2024-06-08 15:55:54 67 % F TBW ([place]) 2024-06-08 15:55:54 30.37 Liters F eKt/V 2024-06-08 15:55:54 0.99 F AMPUTATE FACTOR 2024-06-08 15:55:54 0 F BLOOD FLOW-QWB 2024-06-08 15:55:54 320 F stdKt/V (DIAL) 2024-06-08 15:55:54 N/A F WEIGHT (KG) 2024-06-08 15:55:54 58.5 kg F KT/V PRESCRIBED 2024-06-08 15:55:54 1.9 F PATIENT AGE 2024-06-08 15:55:54 54 Years F WEIGHT - POST DAY 1 2024-06-08 15:55:54 57.9 kg F Dialyzer JEANINE 2024-06-08 15:55:54 1025 Calc F Std Renal KT/V 2024-06-08 15:55:54 N/A F BSA ANAND 2024-06-08 15:55:54 1.68 sq m F DIALYZER FLOW-QD 2024-06-08 15:55:54 500 mL/min F stdKT/V Total 2024-06-08 15:55:54 N/A F Urea nitrogen [Mass/volume] in Serum or Plasma --post dialysis 2024-06-08 15:54:19 32 mg/dL F 9.0-23.0 Urea nitrogen [Mass/volume] in Serum or Plasma --post dialysis 2024-06-08 15:54:19 32 mg/dL F 9.0-23.0 Urea nitrogen [Mass/volume] in Serum or Plasma --post dialysis 2024-06-08 15:54:19 32 mg/dL F 9.0-23.0 Creatinine [Mass/volume] in Serum or Plasma 2024-06-08 15:31:19 4.29 mg/dL F 0.5-1.1 Urea nitrogen [Mass/volume] in Serum or Plasma 2024-06-08 15:31:19 98 mg/dL F 9.0-23.0 Creatinine [Mass/volume] in Serum or Plasma 2024-06-08 15:31:19 4.29 mg/dL F 0.5-1.1 Urea nitrogen [Mass/volume] in Serum or Plasma 2024-06-08 15:31:19 98 mg/dL F 9.0-23.0 Creatinine [Mass/volume] in Serum or Plasma 2024-06-08 15:31:19 4.29 mg/dL F 0.5-1.1 Urea nitrogen [Mass/volume] in Serum or Plasma 2024-06-08 15:31:19 98 mg/dL F 9.0-23.0 Dialyzer JEANINE 2024-05-02 22:57:03 1025 Calc F nPCR 2024-05-02 22:57:03 1.25 G/KG/D F BSA ANAND 2024-05-02 22:57:03 1.68 sq m F TBW ([place]) 2024-05-02 22:57:03 30.42 Liters F WEIGHT - POST DAY 1 2024-05-02 22:57:03 58.1 kg F TOTAL HOURS/WEEK DIALYSIS 2024-05-02 22:57:03 10 hrs F HEIGHT IN INCHES 2024-05-02 22:57:03 67 Inches F stdKT/V Total 2024-05-02 22:57:03 N/A F eKt/V 2024-05-02 22:57:03 1.07 F VT (KT/V TX VOL) 2024-05-02 22:57:03 36.8 L F Std Renal KT/V 2024-05-02 22:57:03 N/A F AMPUTATE FACTOR 2024-05-02 22:57:03 0 F BLOOD FLOW-QWB 2024-05-02 22:57:03 325 F DIALYZER FLOW-QD 2024-05-02 22:57:03 500 mL/min F CURRENT KRU 2024-05-02 22:57:03 F WEIGHT (KG) 2024-05-02 22:57:03 58.5 kg F PATIENT AGE 2024-05-02 22:57:03 53 Years F stdKt/V (DIAL) 2024-05-02 22:57:03 N/A F LENGTH OF DIALYSIS 2024-05-02 22:57:03 198 min F VM (KT/V MEAN VOL) 2024-05-02 22:57:03 526.7 F KT/V PRESCRIBED 2024-05-02 22:57:03 1.87 F Total Kt/V 2024-05-02 22:57:03 1.26 F WEIGHT - PRE DAY 1 2024-05-02 22:57:03 60.4 kg F PRESCRIBED DAYS/WEEK 2024-05-02 22:57:03 3 Day/Wk F URR% 2024-05-02 22:57:03 66 % F Residual kt/v 2024-05-02 22:57:03 F spKt/V 2024-05-02 22:57:03 1.26 F TBW ([place]) 2024-05-02 22:57:03 30.42 Liters F nPCR 2024-05-02 22:57:03 1.25 G/KG/D F TOTAL HOURS/WEEK DIALYSIS 2024-05-02 22:57:03 10 hrs F BSA ANAND 2024-05-02 22:57:03 1.68 sq m F Std Renal KT/V 2024-05-02 22:57:03 N/A F VT (KT/V TX VOL) 2024-05-02 22:57:03 36.8 L F stdKT/V Total 2024-05-02 22:57:03 N/A F AMPUTATE FACTOR 2024-05-02 22:57:03 0 F eKt/V 2024-05-02 22:57:03 1.07 F Dialyzer JEANINE 2024-05-02 22:57:03 1025 Calc F WEIGHT - POST DAY 1 2024-05-02 22:57:03 58.1 kg F HEIGHT IN INCHES 2024-05-02 22:57:03 67 Inches F CURRENT KRU 2024-05-02 22:57:03 F PATIENT AGE 2024-05-02 22:57:03 53 Years F BLOOD FLOW-QWB 2024-05-02 22:57:03 325 F VM (KT/V MEAN VOL) 2024-05-02 22:57:03 526.7 F DIALYZER FLOW-QD 2024-05-02 22:57:03 500 mL/min F WEIGHT (KG) 2024-05-02 22:57:03 58.5 kg F PRESCRIBED DAYS/WEEK 2024-05-02 22:57:03 3 Day/Wk F URR% 2024-05-02 22:57:03 66 % F WEIGHT - PRE DAY 1 2024-05-02 22:57:03 60.4 kg F KT/V PRESCRIBED 2024-05-02 22:57:03 1.87 F stdKt/V (DIAL) 2024-05-02 22:57:03 N/A F Residual kt/v 2024-05-02 22:57:03 F LENGTH OF DIALYSIS 2024-05-02 22:57:03 198 min F spKt/V 2024-05-02 22:57:03 1.26 F Total Kt/V 2024-05-02 22:57:03 1.26 F Urea nitrogen [Mass/volume] in Serum or Plasma --post dialysis 2024-05-02 22:50:37 30 mg/dL F 9.0-23.0 Urea nitrogen [Mass/volume] in Serum or Plasma --post dialysis 2024-05-02 22:50:37 30 mg/dL F 9.0-23.0 Creatinine [Mass/volume] in Serum or Plasma 2024-05-02 21:32:35 3.88 mg/dL F 0.5-1.1 Urea nitrogen [Mass/volume] in Serum or Plasma 2024-05-02 21:32:35 89 mg/dL F 9.0-23.0 Creatinine [Mass/volume] in Serum or Plasma 2024-05-02 21:32:35 3.88 mg/dL F 0.5-1.1 Urea nitrogen [Mass/volume] in Serum or Plasma 2024-05-02 21:32:35 89 mg/dL F 9.0-23.0 PRESCRIBED DAYS/WEEK 2024-03-30 06:03:10 3 Day/Wk F HEIGHT IN INCHES 2024-03-30 06:03:10 67 Inches F DIALYZER FLOW-QD 2024-03-30 06:03:10 503 mL/min F TOTAL HOURS/WEEK DIALYSIS 2024-03-30 06:03:10 9 hrs F eKt/V 2024-03-30 06:03:10 1.18 F TBW ([place]) 2024-03-30 06:03:10 30.6 Liters F stdKT/V Total 2024-03-30 06:03:10 N/A F LENGTH OF DIALYSIS 2024-03-30 06:03:10 196 min F AMPUTATE FACTOR 2024-03-30 06:03:10 0 F nPCR 2024-03-30 06:03:10 0.74 G/KG/D F Residual kt/v 2024-03-30 06:03:10 F VT (KT/V TX VOL) 2024-03-30 06:03:10 32.4 L F Total Kt/V 2024-03-30 06:03:10 1.4 F CURRENT KRU 2024-03-30 06:03:10 F spKt/V 2024-03-30 06:03:10 1.4 F Dialyzer JEANINE 2024-03-30 06:03:10 1025 Calc F WEIGHT - PRE DAY 1 2024-03-30 06:03:10 60.9 kg F KT/V PRESCRIBED 2024-03-30 06:03:10 1.84 F WEIGHT - POST DAY 1 2024-03-30 06:03:10 58.8 kg F stdKt/V (DIAL) 2024-03-30 06:03:10 N/A F URR% 2024-03-30 06:03:10 71 % F BLOOD FLOW-QWB 2024-03-30 06:03:10 317 F Std Renal KT/V 2024-03-30 06:03:10 N/A F BSA ANAND 2024-03-30 06:03:10 1.69 sq m F WEIGHT (KG) 2024-03-30 06:03:10 59.6 kg F VM (KT/V MEAN VOL) 2024-03-30 06:03:10 526.7 F PATIENT AGE 2024-03-30 06:03:10 53 Years F LENGTH OF DIALYSIS 2024-03-30 06:03:10 196 min F PRESCRIBED DAYS/WEEK 2024-03-30 06:03:10 3 Day/Wk F TOTAL HOURS/WEEK DIALYSIS 2024-03-30 06:03:10 9 hrs F HEIGHT IN INCHES 2024-03-30 06:03:10 67 Inches F DIALYZER FLOW-QD 2024-03-30 06:03:10 503 mL/min F TBW ([place]) 2024-03-30 06:03:10 30.6 Liters F eKt/V 2024-03-30 06:03:10 1.18 F AMPUTATE FACTOR 2024-03-30 06:03:10 0 F VT (KT/V TX VOL) 2024-03-30 06:03:10 32.4 L F stdKT/V Total 2024-03-30 06:03:10 N/A F Total Kt/V 2024-03-30 06:03:10 1.4 F CURRENT KRU 2024-03-30 06:03:10 F stdKt/V (DIAL) 2024-03-30 06:03:10 N/A F WEIGHT - PRE DAY 1 2024-03-30 06:03:10 60.9 kg F nPCR 2024-03-30 06:03:10 0.74 G/KG/D F spKt/V 2024-03-30 06:03:10 1.4 F KT/V PRESCRIBED 2024-03-30 06:03:10 1.84 F Dialyzer JEANINE 2024-03-30 06:03:10 1025 Calc F WEIGHT - POST DAY 1 2024-03-30 06:03:10 58.8 kg F Residual kt/v 2024-03-30 06:03:10 F BLOOD FLOW-QWB 2024-03-30 06:03:10 317 F BSA ANAND 2024-03-30 06:03:10 1.69 sq m F VM (KT/V MEAN VOL) 2024-03-30 06:03:10 526.7 F WEIGHT (KG) 2024-03-30 06:03:10 59.6 kg F Std Renal KT/V 2024-03-30 06:03:10 N/A F URR% 2024-03-30 06:03:10 71 % F PATIENT AGE 2024-03-30 06:03:10 53 Years F PRESCRIBED DAYS/WEEK 2024-03-30 06:03:10 3 Day/Wk F AMPUTATE FACTOR 2024-03-30 06:03:10 0 F DIALYZER FLOW-QD 2024-03-30 06:03:10 503 mL/min F stdKT/V Total 2024-03-30 06:03:10 N/A F TBW ([place]) 2024-03-30 06:03:10 30.6 Liters F eKt/V 2024-03-30 06:03:10 1.18 F TOTAL HOURS/WEEK DIALYSIS 2024-03-30 06:03:10 9 hrs F LENGTH OF DIALYSIS 2024-03-30 06:03:10 196 min F HEIGHT IN INCHES 2024-03-30 06:03:10 67 Inches F VT (KT/V TX VOL) 2024-03-30 06:03:10 32.4 L F CURRENT KRU 2024-03-30 06:03:10 F WEIGHT - PRE DAY 1 2024-03-30 06:03:10 60.9 kg F KT/V PRESCRIBED 2024-03-30 06:03:10 1.84 F spKt/V 2024-03-30 06:03:10 1.4 F BLOOD FLOW-QWB 2024-03-30 06:03:10 317 F Residual kt/v 2024-03-30 06:03:10 F nPCR 2024-03-30 06:03:10 0.74 G/KG/D F stdKt/V (DIAL) 2024-03-30 06:03:10 N/A F Dialyzer JEANINE 2024-03-30 06:03:10 1025 Calc F Total Kt/V 2024-03-30 06:03:10 1.4 F WEIGHT - POST DAY 1 2024-03-30 06:03:10 58.8 kg F PATIENT AGE 2024-03-30 06:03:10 53 Years F URR% 2024-03-30 06:03:10 71 % F WEIGHT (KG) 2024-03-30 06:03:10 59.6 kg F BSA ANAND 2024-03-30 06:03:10 1.69 sq m F VM (KT/V MEAN VOL) 2024-03-30 06:03:10 526.7 F Std Renal KT/V 2024-03-30 06:03:10 N/A F Urea nitrogen [Mass/volume] in Serum or Plasma --post dialysis 2024-03-30 06:01:25 17 mg/dL F 9.0-23.0 Urea nitrogen [Mass/volume] in Serum or Plasma --post dialysis 2024-03-30 06:01:25 17 mg/dL F 9.0-23.0 Urea nitrogen [Mass/volume] in Serum or Plasma --post dialysis 2024-03-30 06:01:25 17 mg/dL F 9.0-23.0 Creatinine [Mass/volume] in Serum or Plasma 2024-03-30 03:53:37 4.11 mg/dL F 0.5-1.1 Urea nitrogen [Mass/volume] in Serum or Plasma 2024-03-30 03:53:37 58 mg/dL F 9.0-23.0 Creatinine [Mass/volume] in Serum or Plasma 2024-03-30 03:53:37 4.11 mg/dL F 0.5-1.1 Urea nitrogen [Mass/volume] in Serum or Plasma 2024-03-30 03:53:37 58 mg/dL F 9.0-23.0 Creatinine [Mass/volume] in Serum or Plasma 2024-03-30 03:53:37 4.11 mg/dL F 0.5-1.1 Urea nitrogen [Mass/volume] in Serum or Plasma 2024-03-30 03:53:37 58 mg/dL F 9.0-23.0 WEIGHT (KG) 2024-02-29 23:14:17 59.6 kg F KT/V PRESCRIBED 2024-02-29 23:14:17 1.7 F BLOOD FLOW-QWB 2024-02-29 23:14:17 300 F eKt/V 2024-02-29 23:14:17 0.99 F BSA ANAND 2024-02-29 23:14:17 1.69 sq m F WEIGHT - PRE DAY 1 2024-02-29 23:14:17 61.9 kg F TBW ([place]) 2024-02-29 23:14:17 30.79 Liters F WEIGHT - POST DAY 1 2024-02-29 23:14:17 59.6 kg F VT (KT/V TX VOL) 2024-02-29 23:14:17 34.3 L F Total Kt/V 2024-02-29 23:14:17 1.18 F VM (KT/V MEAN VOL) 2024-02-29 23:14:17 526.7 F LENGTH OF DIALYSIS 2024-02-29 23:14:17 174 min F PATIENT AGE 2024-02-29 23:14:17 53 Years F PRESCRIBED DAYS/WEEK 2024-02-29 23:14:17 3 Day/Wk F TOTAL HOURS/WEEK DIALYSIS 2024-02-29 23:14:17 5 hrs F stdKt/V (DIAL) 2024-02-29 23:14:17 N/A F CURRENT KRU 2024-02-29 23:14:17 F HEIGHT IN INCHES 2024-02-29 23:14:17 67 Inches F Std Renal KT/V 2024-02-29 23:14:17 N/A F Residual kt/v 2024-02-29 23:14:17 F stdKT/V Total 2024-02-29 23:14:17 N/A F nPCR 2024-02-29 23:14:17 0.66 G/KG/D F spKt/V 2024-02-29 23:14:17 1.18 F AMPUTATE FACTOR 2024-02-29 23:14:17 0 F Dialyzer JAENINE 2024-02-29 23:14:16 1218 Calc F DIALYZER FLOW-QD 2024-02-29 23:14:16 501 mL/min F URR% 2024-02-29 23:14:15 65 % F Urea nitrogen [Mass/volume] in Serum or Plasma --post dialysis 2024-02-29 23:12:40 24 mg/dL F 9.0-23.0 Creatinine [Mass/volume] in Serum or Plasma 2024-02-29 17:02:39 4.28 mg/dL F 0.5-1.1 Urea nitrogen [Mass/volume] in Serum or Plasma 2024-02-29 17:02:39 68 mg/dL F 9.0-23.0 Creatinine [Mass/volume] in Serum or Plasma 2024-02-03 19:48:32 4.03 mg/dL F 0.5-1.1 LENGTH OF DIALYSIS 2024-02-02 15:58:47 0 min F WEIGHT - POST DAY 1 2024-02-02 15:58:47 0 kg F PRESCRIBED DAYS/WEEK 2024-02-02 15:58:47 0 Day/Wk F WEIGHT - PRE DAY 1 2024-02-02 15:58:47 0 kg F PATIENT AGE 2024-02-02 15:58:47 53 Years F AMPUTATE FACTOR 2024-02-02 15:58:47 0 F Dialyzer JEANINE 2024-02-02 15:58:47 0 Calc F TOTAL HOURS/WEEK DIALYSIS 2024-02-02 15:58:47 0 hrs F BLOOD FLOW-QWB 2024-02-02 15:58:47 0 F HEIGHT IN INCHES 2024-02-02 15:58:47 67 Inches F WEIGHT (KG) 2024-02-02 15:58:47 60 kg F DIALYZER FLOW-QD 2024-02-02 15:58:47 0 mL/min F Creatinine [Mass/volume] in Serum or Plasma 2024-01-18 21:13:35 3.63 mg/dL F 0.5-1.1 Creatinine [Mass/volume] in Serum or Plasma 2024-01-18 21:13:35 3.63 mg/dL F 0.5-1.1 BSA ANAND 2024-01-18 15:59:15 1.75 sq m F URR% 2024-01-18 15:59:15 8 % F stdKT/V Total 2024-01-18 15:59:15 N/A F Residual kt/v 2024-01-18 15:59:15 F WEIGHT (KG) 2024-01-18 15:59:15 65 kg F nPCR 2024-01-18 15:59:15 0.18 G/KG/D F WEIGHT - PRE DAY 1 2024-01-18 15:59:15 65.3 kg F stdKt/V (DIAL) 2024-01-18 15:59:15 N/A F VT (KT/V TX VOL) 2024-01-18 15:59:15 526.7 L F AMPUTATE FACTOR 2024-01-18 15:59:15 0 F spKt/V 2024-01-18 15:59:15 0.09 F Std Renal KT/V 2024-01-18 15:59:15 N/A F TOTAL HOURS/WEEK DIALYSIS 2024-01-18 15:59:15 3 hrs F PATIENT AGE 2024-01-18 15:59:15 53 Years F BLOOD FLOW-QWB 2024-01-18 15:59:15 350 F WEIGHT - POST DAY 1 2024-01-18 15:59:15 63.8 kg F Total Kt/V 2024-01-18 15:59:15 0.09 F KT/V PRESCRIBED 2024-01-18 15:59:15 1.72 F Dialyzer JEANINE 2024-01-18 15:59:15 1218 Calc F LENGTH OF DIALYSIS 2024-01-18 15:59:15 184 min F PRESCRIBED DAYS/WEEK 2024-01-18 15:59:15 3 Day/Wk F DIALYZER FLOW-QD 2024-01-18 15:59:15 504 mL/min F HEIGHT IN INCHES 2024-01-18 15:59:15 67 Inches F eKt/V 2024-01-18 15:59:15 0.09 F CURRENT KRU 2024-01-18 15:59:15 F TBW ([place]) 2024-01-18 15:59:15 31.83 Liters F VM (KT/V MEAN VOL) 2024-01-18 15:59:15 526.7 F Urea nitrogen [Mass/volume] in Serum or Plasma --post dialysis 2024-01-18 15:57:41 23 mg/dL F 9.0-23.0 Urea nitrogen [Mass/volume] in Serum or Plasma 2024-01-18 15:49:32 25 mg/dL F 9.0-23.0 Urea nitrogen [Mass/volume] in Serum or Plasma --post dialysis Urea nitrogen [Mass/volume] in Serum or Plasma --post dialysis Urea nitrogen [Mass/volume] in Serum or Plasma DIALYZER FLOW-QD Dialyzer JEANINE URR% LENGTH OF DIALYSIS BSA ANAND WEIGHT - POST DAY 1 WEIGHT - PRE DAY 1 PRESCRIBED DAYS/WEEK VT (KT/V TX VOL) VM (KT/V MEAN VOL) KT/V PRESCRIBED Residual kt/v Total Kt/V nPCR TBW ([place]) spKt/V eKt/V stdKt/V (DIAL) Std Renal KT/V stdKT/V Total TOTAL HOURS/WEEK DIALYSIS BLOOD FLOW-QWB CURRENT KRU Urea nitrogen [Mass/volume] in Serum or Plasma URR% DIALYZER FLOW-QD Dialyzer JEANINE BSA ANAND LENGTH OF DIALYSIS WEIGHT - POST DAY 1 WEIGHT - PRE DAY 1 PRESCRIBED DAYS/WEEK VT (KT/V TX VOL) VM (KT/V MEAN VOL) Residual kt/v KT/V PRESCRIBED nPCR Total Kt/V TBW ([place]) spKt/V eKt/V stdKt/V (DIAL) Std Renal KT/V TOTAL HOURS/WEEK DIALYSIS stdKT/V Total BLOOD FLOW-QWB CURRENT KRU Urea nitrogen [Mass/volume] in Serum or Plasma --post dialysis BSA ANAND CURRENT KRU eKt/V Residual kt/v stdKt/V (DIAL) stdKT/V Total URR% VT (KT/V TX VOL) TBW ([place]) PRESCRIBED DAYS/WEEK WEIGHT - POST DAY 1 VM (KT/V MEAN VOL) Std Renal KT/V WEIGHT - PRE DAY 1 TOTAL HOURS/WEEK DIALYSIS KT/V PRESCRIBED Urea nitrogen [Mass/volume] in Serum or Plasma BLOOD FLOW-QWB LENGTH OF DIALYSIS spKt/V DIALYZER FLOW-QD Total Kt/V nPCR Dialyzer JEANINE Urea nitrogen [Mass/volume] in Serum or Plasma --post dialysis Urea nitrogen [Mass/volume] in Serum or Plasma --post dialysis Total Kt/V VM (KT/V MEAN VOL) Residual kt/v WEIGHT - PRE DAY 1 stdKT/V Total stdKt/V (DIAL) Dialyzer JEANINE PRESCRIBED DAYS/WEEK DIALYZER FLOW-QD BSA ANAND KT/V PRESCRIBED Urea nitrogen [Mass/volume] in Serum or Plasma Std Renal KT/V WEIGHT - POST DAY 1 BLOOD FLOW-QWB LENGTH OF DIALYSIS VT (KT/V TX VOL) nPCR spKt/V TOTAL HOURS/WEEK DIALYSIS TBW ([place]) CURRENT KRU eKt/V URR% stdKt/V (DIAL) stdKT/V Total KT/V PRESCRIBED BSA ANAND DIALYZER FLOW-QD Dialyzer JEANINE BLOOD FLOW-QWB TOTAL HOURS/WEEK DIALYSIS VM (KT/V MEAN VOL) VT (KT/V TX VOL) TBW ([place]) Urea nitrogen [Mass/volume] in Serum or Plasma PRESCRIBED DAYS/WEEK WEIGHT - POST DAY 1 spKt/V WEIGHT - PRE DAY 1 nPCR CURRENT KRU Residual kt/v LENGTH OF DIALYSIS URR% Total Kt/V Std Renal KT/V eKt/V DIALYZER FLOW-QD LENGTH OF DIALYSIS PRESCRIBED DAYS/WEEK Dialyzer JEANINE TOTAL HOURS/WEEK DIALYSIS BLOOD FLOW-QWB WEIGHT - POST DAY 1 WEIGHT - PRE DAY 1 TBW ([place]) BSA ANAND nPCR eKt/V spKt/V stdKt/V (DIAL) Residual kt/v KT/V PRESCRIBED Total Kt/V VT (KT/V TX VOL) CURRENT KRU Std Renal KT/V stdKT/V Total VM (KT/V MEAN VOL) Residual kt/v spKt/V BSA ANAND nPCR VM (KT/V MEAN VOL) Urea nitrogen [Mass/volume] in Serum or Plasma Total Kt/V eKt/V TBW ([place]) stdKt/V (DIAL) URR% Std Renal KT/V stdKT/V Total KT/V PRESCRIBED VT (KT/V TX VOL) CURRENT KRU PATIENT AGE CURRENT KRU WEIGHT - POST DAY 1 URR% eKt/V LENGTH OF DIALYSIS AMPUTATE FACTOR Dialyzer JEANINE TOTAL HOURS/WEEK DIALYSIS PRESCRIBED DAYS/WEEK VT (KT/V TX VOL) spKt/V WEIGHT - PRE DAY 1 stdKt/V (DIAL) Std Renal KT/V BSA ANAND Residual kt/v TBW ([place]) Urea nitrogen [Mass/volume] in Serum or Plasma VM (KT/V MEAN VOL) nPCR HEIGHT IN INCHES KT/V PRESCRIBED WEIGHT (KG) DIALYZER FLOW-QD Total Kt/V BLOOD FLOW-QWB stdKT/V Total HEIGHT IN INCHES VM (KT/V MEAN VOL) CURRENT KRU URR% Urea nitrogen [Mass/volume] in Serum or Plasma AMPUTATE FACTOR BSA ANAND WEIGHT - POST DAY 1 Residual kt/v VT (KT/V TX VOL) WEIGHT (KG) KT/V PRESCRIBED PATIENT AGE Total Kt/V TOTAL HOURS/WEEK DIALYSIS spKt/V Std Renal KT/V nPCR DIALYZER FLOW-QD LENGTH OF DIALYSIS PRESCRIBED DAYS/WEEK Dialyzer JEANINE WEIGHT - PRE DAY 1 TBW ([place]) BLOOD FLOW-QWB stdKT/V Total eKt/V stdKt/V (DIAL) Anemia Description Draw Date Result/Unit Status Ref Range Result Comments HCT CALC HGBX3 2025-07-18 02:33:56 23.7 % F 37.0-47.0 Hemoglobin [Mass/volume] in Blood 2025-07-18 02:33:06 7.9 g/dL F 12.0-16.0 HCT CALC HGBX3 2025-07-03 15:19:06 27.6 % F 37.0-47.0 Erythrocyte distribution width [Ratio] by Automated count 2025-07-03 15:18:16 17.5 % F 11.0-15.0 Erythrocytes [#/volume] in Blood by Automated count 2025-07-03 15:18:16 3.29 x 10^6 cells/uL F 3.85-5.2 Hematocrit [Volume Fraction] of Blood by Automated count 2025-07-03 15:18:16 31.2 % F 37.0-47.0 Hemoglobin [Mass/volume] in Blood 2025-07-03 15:18:16 9.2 g/dL F 12.0-16.0 MCV [Entitic volume] by Automated count 2025-07-03 15:18:16 95 fL F 80.0-100.0 MCH [Entitic mass] by Automated count 2025-07-03 15:18:16 27.9 pg F 25.9-34.2 MCHC [Mass/volume] by Automated count 2025-07-03 15:18:16 29.4 g/dL F 29.6-35.3 Platelets [#/volume] in Blood by Automated count 2025-07-03 15:18:16 63 x 10^3 cells/uL F 140.0-450.0 ABSOLUTE RETIC COUNT 2025-07-03 15:18:16 0.109 x 10^6 cells/uL F 0.035-0.127 Reticulocytes/100 erythrocytes in Blood by Automated count 2025-07-03 15:18:16 3.32 % F 0.7-2.5 HCT CALC HGBX3 2025-06-18 20:54:52 25.2 % F 37.0-47.0 Hemoglobin [Mass/volume] in Blood 2025-06-18 20:54:09 8.4 g/dL F 12.0-16.0 Reticulocytes/100 erythrocytes in Blood by Automated count 2025-06-13 16:40:08 1.85 % F 0.7-2.5 ABSOLUTE RETIC COUNT 2025-06-13 16:40:08 0.058 x 10^6 cells/uL F 0.035-0.127 HCT CALC HGBX3 2025-05-31 03:54:44 25.5 % F 37.0-47.0 HCT CALC HGBX3 2025-05-31 03:54:44 25.5 % F 37.0-47.0 ABSOLUTE RETIC COUNT 2025-05-31 03:54:13 F RECOLLECT - OUTDATED SPECIMEN Reticulocytes/100 erythrocytes in Blood by Automated count 2025-05-31 03:54:13 F RECOLLECT - OUTDATED SPECIMEN ABSOLUTE RETIC COUNT 2025-05-31 03:54:13 F RECOLLECT - OUTDATED SPECIMEN Reticulocytes/100 erythrocytes in Blood by Automated count 2025-05-31 03:54:13 F RECOLLECT - OUTDATED SPECIMEN Erythrocyte distribution width [Ratio] by Automated count 2025-05-31 03:53:13 14.2 % F 11.0-15.0 Erythrocytes [#/volume] in Blood by Automated count 2025-05-31 03:53:13 3.08 x 10^6 cells/uL F 3.85-5.2 Hematocrit [Volume Fraction] of Blood by Automated count 2025-05-31 03:53:13 31 % F 37.0-47.0 Hemoglobin [Mass/volume] in Blood 2025-05-31 03:53:13 8.5 g/dL F 12.0-16.0 MCV [Entitic volume] by Automated count 2025-05-31 03:53:13 100.6 fL F 80.0-100.0 MCH [Entitic mass] by Automated count 2025-05-31 03:53:13 27.7 pg F 25.9-34.2 Platelets [#/volume] in Blood by Automated count 2025-05-31 03:53:13 50 x 10^3 cells/uL F 140.0-450.0 MCHC [Mass/volume] by Automated count 2025-05-31 03:53:13 27.6 g/dL F 29.6-35.3 Erythrocyte distribution width [Ratio] by Automated count 2025-05-31 03:53:13 14.2 % F 11.0-15.0 Erythrocytes [#/volume] in Blood by Automated count 2025-05-31 03:53:13 3.08 x 10^6 cells/uL F 3.85-5.2 Hematocrit [Volume Fraction] of Blood by Automated count 2025-05-31 03:53:13 31 % F 37.0-47.0 Hemoglobin [Mass/volume] in Blood 2025-05-31 03:53:13 8.5 g/dL F 12.0-16.0 MCH [Entitic mass] by Automated count 2025-05-31 03:53:13 27.7 pg F 25.9-34.2 MCHC [Mass/volume] by Automated count 2025-05-31 03:53:13 27.6 g/dL F 29.6-35.3 MCV [Entitic volume] by Automated count 2025-05-31 03:53:13 100.6 fL F 80.0-100.0 Platelets [#/volume] in Blood by Automated count 2025-05-31 03:53:13 50 x 10^3 cells/uL F 140.0-450.0 HCT CALC HGBX3 2025-05-15 06:50:09 28.5 % F 37.0-47.0 Hemoglobin [Mass/volume] in Blood 2025-05-15 06:49:10 9.5 g/dL F 12.0-16.0 IRON SATURATION 2025-05-14 07:39:25 F Unable to Calculate.,Cance led - Specimen not received 5 days past draw date TIBC 2025-05-14 07:39:25 F Canceled - Specimen not received 5 days past draw date,Unable to Calculate. Iron [Mass/volume] in Serum or Plasma 2025-05-14 07:26:09 F Canceled - Specimen not received 5 days past draw date Ferritin [Mass/volume] in Serum or Plasma 2025-05-14 07:26:09 F Canceled - Specimen not received 5 days past draw date Iron binding capacity.unsaturated [Mass/volume] in Serum or Plasma 2025-05-14 07:26:09 F Canceled - Specimen not received 5 days past draw date ABSOLUTE RETIC COUNT 2025-05-11 17:59:12 0.056 x 10^6 cells/uL F 0.035-0.127 Reticulocytes/100 erythrocytes in Blood by Automated count 2025-05-11 17:59:12 1.75 % F 0.7-2.5 HCT CALC HGBX3 2025-05-10 07:15:00 28.8 % F 37.0-47.0 HCT CALC HGBX3 2025-05-10 07:15:00 28.8 % F 37.0-47.0 Erythrocyte distribution width [Ratio] by Automated count 2025-05-10 07:10:10 14.6 % F 11.0-15.0 Erythrocytes [#/volume] in Blood by Automated count 2025-05-10 07:10:10 3.23 x 10^6 cells/uL F 3.85-5.2 Hematocrit [Volume Fraction] of Blood by Automated count 2025-05-10 07:10:10 33 % F 37.0-47.0 MCV [Entitic volume] by Automated count 2025-05-10 07:10:10 102.4 fL F 80.0-100.0 Hemoglobin [Mass/volume] in Blood 2025-05-10 07:10:10 9.6 g/dL F 12.0-16.0 MCH [Entitic mass] by Automated count 2025-05-10 07:10:10 29.9 pg F 25.9-34.2 MCHC [Mass/volume] by Automated count 2025-05-10 07:10:10 29.2 g/dL F 29.6-35.3 Platelets [#/volume] in Blood by Automated count 2025-05-10 07:10:10 48 x 10^3 cells/uL F 140.0-450.0 Erythrocyte distribution width [Ratio] by Automated count 2025-05-10 07:10:10 14.6 % F 11.0-15.0 Erythrocytes [#/volume] in Blood by Automated count 2025-05-10 07:10:10 3.23 x 10^6 cells/uL F 3.85-5.2 Hematocrit [Volume Fraction] of Blood by Automated count 2025-05-10 07:10:10 33 % F 37.0-47.0 Hemoglobin [Mass/volume] in Blood 2025-05-10 07:10:10 9.6 g/dL F 12.0-16.0 MCH [Entitic mass] by Automated count 2025-05-10 07:10:10 29.9 pg F 25.9-34.2 MCV [Entitic volume] by Automated count 2025-05-10 07:10:10 102.4 fL F 80.0-100.0 MCHC [Mass/volume] by Automated count 2025-05-10 07:10:10 29.2 g/dL F 29.6-35.3 Platelets [#/volume] in Blood by Automated count 2025-05-10 07:10:10 48 x 10^3 cells/uL F 140.0-450.0 IRON SATURATION 2025-05-03 04:32:43 20 % F 16.0-46.0 TIBC 2025-05-03 04:32:43 199 ug/dL F 250.0-425.0 IRON SATURATION 2025-05-03 04:32:43 20 % F 16.0-46.0 TIBC 2025-05-03 04:32:43 199 ug/dL F 250.0-425.0 IRON SATURATION 2025-05-03 04:32:43 20 % F 16.0-46.0 TIBC 2025-05-03 04:32:43 199 ug/dL F 250.0-425.0 Iron binding capacity.unsaturated [Mass/volume] in Serum or Plasma 2025-05-03 04:28:29 160 ug/dL F 80.0-375.0 Iron binding capacity.unsaturated [Mass/volume] in Serum or Plasma 2025-05-03 04:28:29 160 ug/dL F 80.0-375.0 Iron binding capacity.unsaturated [Mass/volume] in Serum or Plasma 2025-05-03 04:28:29 160 ug/dL F 80.0-375.0 Iron [Mass/volume] in Serum or Plasma 2025-05-02 16:59:51 39 ug/dL F 50.0-170.0 Iron [Mass/volume] in Serum or Plasma 2025-05-02 16:59:51 39 ug/dL F 50.0-170.0 Iron [Mass/volume] in Serum or Plasma 2025-05-02 16:59:51 39 ug/dL F 50.0-170.0 Transferrin [Mass/volume] in Serum or Plasma 2025-05-02 13:55:22 154 mg/dL F 250.0-380.0 Transferrin [Mass/volume] in Serum or Plasma 2025-05-02 13:55:22 154 mg/dL F 250.0-380.0 Transferrin [Mass/volume] in Serum or Plasma 2025-05-02 13:55:22 154 mg/dL F 250.0-380.0 HCT CALC HGBX3 2025-05-02 13:48:06 29.7 % F 37.0-47.0 HCT CALC HGBX3 2025-05-02 13:48:06 29.7 % F 37.0-47.0 HCT CALC HGBX3 2025-05-02 13:48:06 29.7 % F 37.0-47.0 Hematocrit [Volume Fraction] of Blood by Automated count 2025-05-02 13:47:14 34.5 % F 37.0-47.0 MCV [Entitic volume] by Automated count 2025-05-02 13:47:14 103.4 fL F 80.0-100.0 Reticulocytes/100 erythrocytes in Blood by Automated count 2025-05-02 13:47:14 5.95 % F 0.7-2.5 Hematocrit [Volume Fraction] of Blood by Automated count 2025-05-02 13:47:14 34.5 % F 37.0-47.0 MCV [Entitic volume] by Automated count 2025-05-02 13:47:14 103.4 fL F 80.0-100.0 Reticulocytes/100 erythrocytes in Blood by Automated count 2025-05-02 13:47:14 5.95 % F 0.7-2.5 Hematocrit [Volume Fraction] of Blood by Automated count 2025-05-02 13:47:14 34.5 % F 37.0-47.0 MCV [Entitic volume] by Automated count 2025-05-02 13:47:14 103.4 fL F 80.0-100.0 Reticulocytes/100 erythrocytes in Blood by Automated count 2025-05-02 13:47:14 5.95 % F 0.7-2.5 Erythrocyte distribution width [Ratio] by Automated count 2025-05-02 13:47:13 16 % F 11.0-15.0 Hemoglobin [Mass/volume] in Blood 2025-05-02 13:47:13 9.9 g/dL F 12.0-16.0 Erythrocytes [#/volume] in Blood by Automated count 2025-05-02 13:47:13 3.33 x 10^6 cells/uL F 3.85-5.2 MCH [Entitic mass] by Automated count 2025-05-02 13:47:13 29.7 pg F 25.9-34.2 MCHC [Mass/volume] by Automated count 2025-05-02 13:47:13 28.7 g/dL F 29.6-35.3 Platelets [#/volume] in Blood by Automated count 2025-05-02 13:47:13 53 x 10^3 cells/uL F 140.0-450.0 ABSOLUTE RETIC COUNT 2025-05-02 13:47:13 0.198 x 10^6 cells/uL F 0.035-0.127 Erythrocytes [#/volume] in Blood by Automated count 2025-05-02 13:47:13 3.33 x 10^6 cells/uL F 3.85-5.2 Erythrocyte distribution width [Ratio] by Automated count 2025-05-02 13:47:13 16 % F 11.0-15.0 Hemoglobin [Mass/volume] in Blood 2025-05-02 13:47:13 9.9 g/dL F 12.0-16.0 MCH [Entitic mass] by Automated count 2025-05-02 13:47:13 29.7 pg F 25.9-34.2 MCHC [Mass/volume] by Automated count 2025-05-02 13:47:13 28.7 g/dL F 29.6-35.3 Platelets [#/volume] in Blood by Automated count 2025-05-02 13:47:13 53 x 10^3 cells/uL F 140.0-450.0 ABSOLUTE RETIC COUNT 2025-05-02 13:47:13 0.198 x 10^6 cells/uL F 0.035-0.127 Erythrocyte distribution width [Ratio] by Automated count 2025-05-02 13:47:13 16 % F 11.0-15.0 Hemoglobin [Mass/volume] in Blood 2025-05-02 13:47:13 9.9 g/dL F 12.0-16.0 Erythrocytes [#/volume] in Blood by Automated count 2025-05-02 13:47:13 3.33 x 10^6 cells/uL F 3.85-5.2 MCH [Entitic mass] by Automated count 2025-05-02 13:47:13 29.7 pg F 25.9-34.2 MCHC [Mass/volume] by Automated count 2025-05-02 13:47:13 28.7 g/dL F 29.6-35.3 Platelets [#/volume] in Blood by Automated count 2025-05-02 13:47:13 53 x 10^3 cells/uL F 140.0-450.0 ABSOLUTE RETIC COUNT 2025-05-02 13:47:13 0.198 x 10^6 cells/uL F 0.035-0.127 Ferritin [Mass/volume] in Serum or Plasma 2025-05-02 13:30:21 642 ng/mL F 10.0-291.0 Ferritin [Mass/volume] in Serum or Plasma 2025-05-02 13:30:21 642 ng/mL F 10.0-291.0 Ferritin [Mass/volume] in Serum or Plasma 2025-05-02 13:30:21 642 ng/mL F 10.0-291.0 IRON SATURATION 2025-04-27 16:36:36 27 % F 16.0-46.0 TIBC 2025-04-27 16:36:36 204 ug/dL F 250.0-425.0 Iron [Mass/volume] in Serum or Plasma 2025-04-27 16:35:48 55 ug/dL F 50.0-170.0 Iron binding capacity.unsaturated [Mass/volume] in Serum or Plasma 2025-04-27 16:35:48 149 ug/dL F 80.0-375.0 Ferritin [Mass/volume] in Serum or Plasma 2025-04-27 16:07:08 1149 ng/mL F 10.0-291.0 HCT CALC HGBX3 2025-04-18 15:24:02 28.5 % F 37.0-47.0 Hemoglobin [Mass/volume] in Blood 2025-04-18 15:23:19 9.5 g/dL F 12.0-16.0 Ferritin [Mass/volume] in Serum or Plasma 2025-03-28 13:13:21 709 ng/mL F 10.0-291.0 HCT CALC HGBX3 2025-03-14 12:14:39 28.5 % F 37.0-47.0 Hemoglobin [Mass/volume] in Blood 2025-03-14 12:14:06 9.5 g/dL F 12.0-16.0 IRON SATURATION 2025-03-06 06:23:29 18 % F 16.0-46.0 TIBC 2025-03-06 06:23:29 235 ug/dL F 250.0-425.0 Iron [Mass/volume] in Serum or Plasma 2025-03-06 06:15:17 42 ug/dL F 50.0-170.0 Iron binding capacity.unsaturated [Mass/volume] in Serum or Plasma 2025-03-06 06:15:17 193 ug/dL F 80.0-375.0 Ferritin [Mass/volume] in Serum or Plasma 2025-03-05 13:40:19 735 ng/mL F 10.0-291.0 HCT CALC HGBX3 2025-03-01 01:27:21 27.6 % F 37.0-47.0 HCT CALC HGBX3 2025-03-01 01:27:21 27.6 % F 37.0-47.0 Erythrocyte distribution width [Ratio] by Automated count 2025-03-01 01:26:47 14.5 % F 11.0-15.0 MCH [Entitic mass] by Automated count 2025-03-01 01:26:47 28.5 pg F 25.9-34.2 MCV [Entitic volume] by Automated count 2025-03-01 01:26:47 100.2 fL F 80.0-100.0 Hemoglobin [Mass/volume] in Blood 2025-03-01 01:26:47 9.2 g/dL F 12.0-16.0 Platelets [#/volume] in Blood by Automated count 2025-03-01 01:26:47 34 x 10^3 cells/uL F 140.0-450.0 Reticulocytes/100 erythrocytes in Blood by Automated count 2025-03-01 01:26:47 5.09 % F 0.7-2.5 ABSOLUTE RETIC COUNT 2025-03-01 01:26:47 0.165 x 10^6 cells/uL F 0.035-0.127 MCHC [Mass/volume] by Automated count 2025-03-01 01:26:47 28.4 g/dL F 29.6-35.3 Erythrocytes [#/volume] in Blood by Automated count 2025-03-01 01:26:47 3.24 x 10^6 cells/uL F 3.85-5.2 Hematocrit [Volume Fraction] of Blood by Automated count 2025-03-01 01:26:47 32.5 % F 37.0-47.0 ABSOLUTE RETIC COUNT 2025-03-01 01:26:47 0.165 x 10^6 cells/uL F 0.035-0.127 Reticulocytes/100 erythrocytes in Blood by Automated count 2025-03-01 01:26:47 5.09 % F 0.7-2.5 Erythrocyte distribution width [Ratio] by Automated count 2025-03-01 01:26:47 14.5 % F 11.0-15.0 Hemoglobin [Mass/volume] in Blood 2025-03-01 01:26:47 9.2 g/dL F 12.0-16.0 Platelets [#/volume] in Blood by Automated count 2025-03-01 01:26:47 34 x 10^3 cells/uL F 140.0-450.0 MCH [Entitic mass] by Automated count 2025-03-01 01:26:47 28.5 pg F 25.9-34.2 MCHC [Mass/volume] by Automated count 2025-03-01 01:26:47 28.4 g/dL F 29.6-35.3 Erythrocytes [#/volume] in Blood by Automated count 2025-03-01 01:26:47 3.24 x 10^6 cells/uL F 3.85-5.2 Hematocrit [Volume Fraction] of Blood by Automated count 2025-03-01 01:26:47 32.5 % F 37.0-47.0 MCV [Entitic volume] by Automated count 2025-03-01 01:26:47 100.2 fL F 80.0-100.0 Transferrin [Mass/volume] in Serum or Plasma 2025-02-28 19:43:20 166 mg/dL F 250.0-380.0 Transferrin [Mass/volume] in Serum or Plasma 2025-02-28 19:43:20 166 mg/dL F 250.0-380.0 IRON SATURATION 2025-02-14 16:23:32 18 % F 16.0-46.0 TIBC 2025-02-14 16:23:32 214 ug/dL F 250.0-425.0 IRON SATURATION 2025-02-14 16:23:32 18 % F 16.0-46.0 TIBC 2025-02-14 16:23:32 214 ug/dL F 250.0-425.0 IRON SATURATION 2025-02-14 16:23:32 18 % F 16.0-46.0 TIBC 2025-02-14 16:23:32 214 ug/dL F 250.0-425.0 Iron binding capacity.unsaturated [Mass/volume] in Serum or Plasma 2025-02-14 16:22:28 176 ug/dL F 80.0-375.0 Iron [Mass/volume] in Serum or Plasma 2025-02-14 16:22:28 38 ug/dL F 50.0-170.0 Iron [Mass/volume] in Serum or Plasma 2025-02-14 16:22:28 38 ug/dL F 50.0-170.0 Iron binding capacity.unsaturated [Mass/volume] in Serum or Plasma 2025-02-14 16:22:28 176 ug/dL F 80.0-375.0 Iron [Mass/volume] in Serum or Plasma 2025-02-14 16:22:28 38 ug/dL F 50.0-170.0 Iron binding capacity.unsaturated [Mass/volume] in Serum or Plasma 2025-02-14 16:22:28 176 ug/dL F 80.0-375.0 HCT CALC HGBX3 2025-02-14 15:18:50 29.4 % F 37.0-47.0 HCT CALC HGBX3 2025-02-14 15:18:50 29.4 % F 37.0-47.0 HCT CALC HGBX3 2025-02-14 15:18:50 29.4 % F 37.0-47.0 Hemoglobin [Mass/volume] in Blood 2025-02-14 15:18:14 9.8 g/dL F 12.0-16.0 Hemoglobin [Mass/volume] in Blood 2025-02-14 15:18:14 9.8 g/dL F 12.0-16.0 Hemoglobin [Mass/volume] in Blood 2025-02-14 15:18:14 9.8 g/dL F 12.0-16.0 Ferritin [Mass/volume] in Serum or Plasma 2025-02-14 13:24:16 676 ng/mL F 10.0-291.0 Ferritin [Mass/volume] in Serum or Plasma 2025-02-14 13:24:16 676 ng/mL F 10.0-291.0 Ferritin [Mass/volume] in Serum or Plasma 2025-02-14 13:24:16 676 ng/mL F 10.0-291.0 Ferritin [Mass/volume] in Serum or Plasma 2025-02-12 07:25:05 F Canceled - Specimen not received 5 days past draw date Ferritin [Mass/volume] in Serum or Plasma 2025-02-12 07:25:05 F Canceled - Specimen not received 5 days past draw date,Canceled - Specimen not received 5 days past draw date Ferritin [Mass/volume] in Serum or Plasma 2025-02-12 07:25:05 F Canceled - Specimen not received 5 days past draw date ABSOLUTE RETIC COUNT 2025-02-09 15:50:08 0.152 x 10^6 cells/uL F 0.035-0.127 Reticulocytes/100 erythrocytes in Blood by Automated count 2025-02-09 15:50:08 4.43 % F 0.7-2.5 ABSOLUTE RETIC COUNT 2025-02-09 15:50:08 0.152 x 10^6 cells/uL F 0.035-0.127 Reticulocytes/100 erythrocytes in Blood by Automated count 2025-02-09 15:50:08 4.43 % F 0.7-2.5 HCT CALC HGBX3 2025-01-22 22:39:07 29.7 % F 37.0-47.0 HCT CALC HGBX3 2025-01-22 22:39:07 29.7 % F 37.0-47.0 HCT CALC HGBX3 2025-01-22 22:39:07 29.7 % F 37.0-47.0 Erythrocyte distribution width [Ratio] by Automated count 2025-01-22 22:38:05 15.3 % F 11.0-15.0 Hemoglobin [Mass/volume] in Blood 2025-01-22 22:38:05 9.9 g/dL F 12.0-16.0 Platelets [#/volume] in Blood by Automated count 2025-01-22 22:38:05 34 x 10^3 cells/uL F 140.0-450.0 MCH [Entitic mass] by Automated count 2025-01-22 22:38:05 29.1 pg F 25.9-34.2 MCHC [Mass/volume] by Automated count 2025-01-22 22:38:05 29.7 g/dL F 29.6-35.3 Erythrocytes [#/volume] in Blood by Automated count 2025-01-22 22:38:05 3.42 x 10^6 cells/uL F 3.85-5.2 Hematocrit [Volume Fraction] of Blood by Automated count 2025-01-22 22:38:05 33.5 % F 37.0-47.0 MCV [Entitic volume] by Automated count 2025-01-22 22:38:05 98 fL F 80.0-100.0 Erythrocyte distribution width [Ratio] by Automated count 2025-01-22 22:38:05 15.3 % F 11.0-15.0 Hemoglobin [Mass/volume] in Blood 2025-01-22 22:38:05 9.9 g/dL F 12.0-16.0 Platelets [#/volume] in Blood by Automated count 2025-01-22 22:38:05 34 x 10^3 cells/uL F 140.0-450.0 MCH [Entitic mass] by Automated count 2025-01-22 22:38:05 29.1 pg F 25.9-34.2 MCHC [Mass/volume] by Automated count 2025-01-22 22:38:05 29.7 g/dL F 29.6-35.3 Erythrocytes [#/volume] in Blood by Automated count 2025-01-22 22:38:05 3.42 x 10^6 cells/uL F 3.85-5.2 Hematocrit [Volume Fraction] of Blood by Automated count 2025-01-22 22:38:05 33.5 % F 37.0-47.0 MCV [Entitic volume] by Automated count 2025-01-22 22:38:05 98 fL F 80.0-100.0 Hemoglobin [Mass/volume] in Blood 2025-01-22 22:38:05 9.9 g/dL F 12.0-16.0 Erythrocyte distribution width [Ratio] by Automated count 2025-01-22 22:38:05 15.3 % F 11.0-15.0 Platelets [#/volume] in Blood by Automated count 2025-01-22 22:38:05 34 x 10^3 cells/uL F 140.0-450.0 MCH [Entitic mass] by Automated count 2025-01-22 22:38:05 29.1 pg F 25.9-34.2 MCHC [Mass/volume] by Automated count 2025-01-22 22:38:05 29.7 g/dL F 29.6-35.3 Erythrocytes [#/volume] in Blood by Automated count 2025-01-22 22:38:05 3.42 x 10^6 cells/uL F 3.85-5.2 Hematocrit [Volume Fraction] of Blood by Automated count 2025-01-22 22:38:05 33.5 % F 37.0-47.0 MCV [Entitic volume] by Automated count 2025-01-22 22:38:05 98 fL F 80.0-100.0 IRON SATURATION 2025-01-22 20:35:42 17 % F 16.0-46.0 TIBC 2025-01-22 20:35:42 232 ug/dL F 250.0-425.0 IRON SATURATION 2025-01-22 20:35:42 17 % F 16.0-46.0 TIBC 2025-01-22 20:35:42 232 ug/dL F 250.0-425.0 IRON SATURATION 2025-01-22 20:35:42 17 % F 16.0-46.0 TIBC 2025-01-22 20:35:42 232 ug/dL F 250.0-425.0 Iron [Mass/volume] in Serum or Plasma 2025-01-22 20:31:23 40 ug/dL F 50.0-170.0 Iron binding capacity.unsaturated [Mass/volume] in Serum or Plasma 2025-01-22 20:31:23 192 ug/dL F 80.0-375.0 Iron [Mass/volume] in Serum or Plasma 2025-01-22 20:31:23 40 ug/dL F 50.0-170.0 Iron binding capacity.unsaturated [Mass/volume] in Serum or Plasma 2025-01-22 20:31:23 192 ug/dL F 80.0-375.0 Iron [Mass/volume] in Serum or Plasma 2025-01-22 20:31:23 40 ug/dL F 50.0-170.0 Iron binding capacity.unsaturated [Mass/volume] in Serum or Plasma 2025-01-22 20:31:23 192 ug/dL F 80.0-375.0 Transferrin [Mass/volume] in Serum or Plasma 2025-01-22 13:05:14 179 mg/dL F 250.0-380.0 Transferrin [Mass/volume] in Serum or Plasma 2025-01-22 13:05:14 179 mg/dL F 250.0-380.0 Transferrin [Mass/volume] in Serum or Plasma 2025-01-22 13:05:14 179 mg/dL F 250.0-380.0 Ferritin [Mass/volume] in Serum or Plasma 2025-01-22 12:32:19 F CANCELED - TEST CANCELED Ferritin [Mass/volume] in Serum or Plasma 2025-01-22 12:32:19 F CANCELED - TEST CANCELED Ferritin [Mass/volume] in Serum or Plasma 2025-01-22 12:32:19 F CANCELED - TEST CANCELED,CANCELE D - TEST CANCELED Hemoglobin [Mass/volume] in Blood 2025-01-11 18:36:39 9.8 g/dL F 09-03 Hemoglobin [Mass/volume] in Blood 2025-01-11 18:36:39 9.8 g/dL F 12-16 ABSOLUTE RETIC COUNT 2024-12-18 12:53:07 0.106 x 10^6 cells/uL F 0.035-0.127 Reticulocytes/100 erythrocytes in Blood by Automated count 2024-12-18 12:53:07 2.99 % F 0.7-2.5 ABSOLUTE RETIC COUNT 2024-12-18 12:53:07 0.106 x 10^6 cells/uL F 0.035-0.127 Reticulocytes/100 erythrocytes in Blood by Automated count 2024-12-18 12:53:07 2.99 % F 0.7-2.5 HCT CALC HGBX3 2024-12-13 12:33:49 31.8 % F 37.0-47.0 HCT CALC HGBX3 2024-12-13 12:33:49 31.8 % F 37.0-47.0 Hemoglobin [Mass/volume] in Blood 2024-12-13 12:33:10 10.6 g/dL F 12.0-16.0 Hemoglobin [Mass/volume] in Blood 2024-12-13 12:33:10 10.6 g/dL F 12.0-16.0 HCT CALC HGBX3 2024-11-30 06:57:43 35.4 % F 37.0-47.0 HCT CALC HGBX3 2024-11-30 06:57:43 35.4 % F 37.0-47.0 Erythrocyte distribution width [Ratio] by Automated count 2024-11-30 06:57:10 15 % F 11.0-15.0 Hemoglobin [Mass/volume] in Blood 2024-11-30 06:57:10 11.8 g/dL F 12.0-16.0 Platelets [#/volume] in Blood by Automated count 2024-11-30 06:57:10 38 x 10^3 cells/uL F 140.0-450.0 MCH [Entitic mass] by Automated count 2024-11-30 06:57:10 30.6 pg F 25.9-34.2 MCHC [Mass/volume] by Automated count 2024-11-30 06:57:10 29.5 g/dL F 29.6-35.3 Erythrocytes [#/volume] in Blood by Automated count 2024-11-30 06:57:10 3.85 x 10^6 cells/uL F 3.85-5.2 Hematocrit [Volume Fraction] of Blood by Automated count 2024-11-30 06:57:10 40 % F 37.0-47.0 MCV [Entitic volume] by Automated count 2024-11-30 06:57:10 103.8 fL F 80.0-100.0 Erythrocyte distribution width [Ratio] by Automated count 2024-11-30 06:57:10 15 % F 11.0-15.0 Hemoglobin [Mass/volume] in Blood 2024-11-30 06:57:10 11.8 g/dL F 12.0-16.0 Platelets [#/volume] in Blood by Automated count 2024-11-30 06:57:10 38 x 10^3 cells/uL F 140.0-450.0 MCH [Entitic mass] by Automated count 2024-11-30 06:57:10 30.6 pg F 25.9-34.2 MCHC [Mass/volume] by Automated count 2024-11-30 06:57:10 29.5 g/dL F 29.6-35.3 Erythrocytes [#/volume] in Blood by Automated count 2024-11-30 06:57:10 3.85 x 10^6 cells/uL F 3.85-5.2 Hematocrit [Volume Fraction] of Blood by Automated count 2024-11-30 06:57:10 40 % F 37.0-47.0 MCV [Entitic volume] by Automated count 2024-11-30 06:57:10 103.8 fL F 80.0-100.0 Transferrin [Mass/volume] in Serum or Plasma 2024-11-29 14:39:18 170 mg/dL F 250.0-380.0 Transferrin [Mass/volume] in Serum or Plasma 2024-11-29 14:39:18 170 mg/dL F 250.0-380.0 Ferritin [Mass/volume] in Serum or Plasma 2024-11-02 08:21:53 419 ng/mL F 10.0-291.0 Ferritin [Mass/volume] in Serum or Plasma 2024-11-02 08:21:53 419 ng/mL F 10.0-291.0 Ferritin [Mass/volume] in Serum or Plasma 2024-11-02 08:21:53 419 ng/mL F 10.0-291.0 IRON SATURATION 2024-11-02 07:19:05 31 % F 16.0-46.0 TIBC 2024-11-02 07:19:05 200 ug/dL F 250.0-425.0 IRON SATURATION 2024-11-02 07:19:05 31 % F 16.0-46.0 TIBC 2024-11-02 07:19:05 200 ug/dL F 250.0-425.0 IRON SATURATION 2024-11-02 07:19:05 31 % F 16.0-46.0 TIBC 2024-11-02 07:19:05 200 ug/dL F 250.0-425.0 Iron [Mass/volume] in Serum or Plasma 2024-11-02 05:34:21 61 ug/dL F 50.0-170.0 Iron binding capacity.unsaturated [Mass/volume] in Serum or Plasma 2024-11-02 05:34:21 139 ug/dL F 80.0-375.0 Iron [Mass/volume] in Serum or Plasma 2024-11-02 05:34:21 61 ug/dL F 50.0-170.0 Iron binding capacity.unsaturated [Mass/volume] in Serum or Plasma 2024-11-02 05:34:21 139 ug/dL F 80.0-375.0 Iron [Mass/volume] in Serum or Plasma 2024-11-02 05:34:21 61 ug/dL F 50.0-170.0 Iron binding capacity.unsaturated [Mass/volume] in Serum or Plasma 2024-11-02 05:34:21 139 ug/dL F 80.0-375.0 HCT CALC HGBX3 2024-11-01 17:46:01 38.1 % F 37.0-47.0 HCT CALC HGBX3 2024-11-01 17:46:01 38.1 % F 37.0-47.0 HCT CALC HGBX3 2024-11-01 17:46:01 38.1 % F 37.0-47.0 Erythrocyte distribution width [Ratio] by Automated count 2024-11-01 17:45:28 15.2 % F 11.0-15.0 Hemoglobin [Mass/volume] in Blood 2024-11-01 17:45:28 12.7 g/dL F 12.0-16.0 Platelets [#/volume] in Blood by Automated count 2024-11-01 17:45:28 49 x 10^3 cells/uL F 140.0-450.0 MCH [Entitic mass] by Automated count 2024-11-01 17:45:28 30.9 pg F 25.9-34.2 MCHC [Mass/volume] by Automated count 2024-11-01 17:45:28 29.6 g/dL F 29.6-35.3 Erythrocytes [#/volume] in Blood by Automated count 2024-11-01 17:45:28 4.1 x 10^6 cells/uL F 3.85-5.2 Hematocrit [Volume Fraction] of Blood by Automated count 2024-11-01 17:45:28 42.8 % F 37.0-47.0 MCV [Entitic volume] by Automated count 2024-11-01 17:45:28 104.5 fL F 80.0-100.0 Erythrocyte distribution width [Ratio] by Automated count 2024-11-01 17:45:28 15.2 % F 11.0-15.0 Hemoglobin [Mass/volume] in Blood 2024-11-01 17:45:28 12.7 g/dL F 12.0-16.0 Platelets [#/volume] in Blood by Automated count 2024-11-01 17:45:28 49 x 10^3 cells/uL F 140.0-450.0 MCH [Entitic mass] by Automated count 2024-11-01 17:45:28 30.9 pg F 25.9-34.2 MCHC [Mass/volume] by Automated count 2024-11-01 17:45:28 29.6 g/dL F 29.6-35.3 Erythrocytes [#/volume] in Blood by Automated count 2024-11-01 17:45:28 4.1 x 10^6 cells/uL F 3.85-5.2 Hematocrit [Volume Fraction] of Blood by Automated count 2024-11-01 17:45:28 42.8 % F 37.0-47.0 MCV [Entitic volume] by Automated count 2024-11-01 17:45:28 104.5 fL F 80.0-100.0 Erythrocyte distribution width [Ratio] by Automated count 2024-11-01 17:45:28 15.2 % F 11.0-15.0 Hemoglobin [Mass/volume] in Blood 2024-11-01 17:45:28 12.7 g/dL F 12.0-16.0 Platelets [#/volume] in Blood by Automated count 2024-11-01 17:45:28 49 x 10^3 cells/uL F 140.0-450.0 MCH [Entitic mass] by Automated count 2024-11-01 17:45:28 30.9 pg F 25.9-34.2 MCHC [Mass/volume] by Automated count 2024-11-01 17:45:28 29.6 g/dL F 29.6-35.3 Erythrocytes [#/volume] in Blood by Automated count 2024-11-01 17:45:28 4.1 x 10^6 cells/uL F 3.85-5.2 Hematocrit [Volume Fraction] of Blood by Automated count 2024-11-01 17:45:28 42.8 % F 37.0-47.0 MCV [Entitic volume] by Automated count 2024-11-01 17:45:28 104.5 fL F 80.0-100.0 Transferrin [Mass/volume] in Serum or Plasma 2024-11-01 13:36:15 150 mg/dL F 250.0-380.0 Transferrin [Mass/volume] in Serum or Plasma 2024-11-01 13:36:15 150 mg/dL F 250.0-380.0 Transferrin [Mass/volume] in Serum or Plasma 2024-11-01 13:36:15 150 mg/dL F 250.0-380.0 HCT CALC HGBX3 2024-10-05 23:08:20 31.8 % F 37.0-47.0 HCT CALC HGBX3 2024-10-05 23:08:20 31.8 % F 37.0-47.0 Erythrocyte distribution width [Ratio] by Automated count 2024-10-05 23:07:26 16.6 % F 11.0-15.0 MCHC [Mass/volume] by Automated count 2024-10-05 23:07:26 27.8 g/dL F 29.6-35.3 Erythrocytes [#/volume] in Blood by Automated count 2024-10-05 23:07:26 3.61 x 10^6 cells/uL F 3.85-5.2 Hematocrit [Volume Fraction] of Blood by Automated count 2024-10-05 23:07:26 38.2 % F 37.0-47.0 MCV [Entitic volume] by Automated count 2024-10-05 23:07:26 105.9 fL F 80.0-100.0 Erythrocyte distribution width [Ratio] by Automated count 2024-10-05 23:07:26 16.6 % F 11.0-15.0 MCHC [Mass/volume] by Automated count 2024-10-05 23:07:26 27.8 g/dL F 29.6-35.3 Hematocrit [Volume Fraction] of Blood by Automated count 2024-10-05 23:07:26 38.2 % F 37.0-47.0 Erythrocytes [#/volume] in Blood by Automated count 2024-10-05 23:07:26 3.61 x 10^6 cells/uL F 3.85-5.2 MCV [Entitic volume] by Automated count 2024-10-05 23:07:26 105.9 fL F 80.0-100.0 Reticulocytes/100 erythrocytes in Blood by Automated count 2024-10-05 23:07:23 5.17 % F 0.7-2.5 ABSOLUTE RETIC COUNT 2024-10-05 23:07:23 0.187 x 10^6 cells/uL F 0.035-0.127 Hemoglobin [Mass/volume] in Blood 2024-10-05 23:07:23 10.6 g/dL F 12.0-16.0 Platelets [#/volume] in Blood by Automated count 2024-10-05 23:07:23 51 x 10^3 cells/uL F 140.0-450.0 MCH [Entitic mass] by Automated count 2024-10-05 23:07:23 29.4 pg F 25.9-34.2 ABSOLUTE RETIC COUNT 2024-10-05 23:07:23 0.187 x 10^6 cells/uL F 0.035-0.127 Reticulocytes/100 erythrocytes in Blood by Automated count 2024-10-05 23:07:23 5.17 % F 0.7-2.5 Hemoglobin [Mass/volume] in Blood 2024-10-05 23:07:23 10.6 g/dL F 12.0-16.0 Platelets [#/volume] in Blood by Automated count 2024-10-05 23:07:23 51 x 10^3 cells/uL F 140.0-450.0 MCH [Entitic mass] by Automated count 2024-10-05 23:07:23 29.4 pg F 25.9-34.2 Transferrin [Mass/volume] in Serum or Plasma 2024-10-05 14:30:23 135 mg/dL F 250.0-380.0 Transferrin [Mass/volume] in Serum or Plasma 2024-10-05 14:30:23 135 mg/dL F 250.0-380.0 HCT CALC HGBX3 2024-09-01 19:40:12 25.8 % F 37.0-47.0 HCT CALC HGBX3 2024-09-01 19:40:12 25.8 % F 37.0-47.0 Erythrocyte distribution width [Ratio] by Automated count 2024-09-01 19:39:09 16.3 % F 11.0-15.0 Hemoglobin [Mass/volume] in Blood 2024-09-01 19:39:09 8.6 g/dL F 12.0-16.0 Platelets [#/volume] in Blood by Automated count 2024-09-01 19:39:09 61 x 10^3 cells/uL F 140.0-450.0 MCH [Entitic mass] by Automated count 2024-09-01 19:39:09 30.5 pg F 25.9-34.2 MCHC [Mass/volume] by Automated count 2024-09-01 19:39:09 29.1 g/dL F 29.6-35.3 Erythrocytes [#/volume] in Blood by Automated count 2024-09-01 19:39:09 2.8 x 10'6 cells/uL F 3.85-5.2 Hematocrit [Volume Fraction] of Blood by Automated count 2024-09-01 19:39:09 29.5 % F 37.0-47.0 MCV [Entitic volume] by Automated count 2024-09-01 19:39:09 105 fL F 80.0-100.0 Erythrocyte distribution width [Ratio] by Automated count 2024-09-01 19:39:09 16.3 % F 11.0-15.0 Hemoglobin [Mass/volume] in Blood 2024-09-01 19:39:09 8.6 g/dL F 12.0-16.0 Platelets [#/volume] in Blood by Automated count 2024-09-01 19:39:09 61 x 10^3 cells/uL F 140.0-450.0 MCHC [Mass/volume] by Automated count 2024-09-01 19:39:09 29.1 g/dL F 29.6-35.3 MCH [Entitic mass] by Automated count 2024-09-01 19:39:09 30.5 pg F 25.9-34.2 Erythrocytes [#/volume] in Blood by Automated count 2024-09-01 19:39:09 2.8 x 10'6 cells/uL F 3.85-5.2 Hematocrit [Volume Fraction] of Blood by Automated count 2024-09-01 19:39:09 29.5 % F 37.0-47.0 MCV [Entitic volume] by Automated count 2024-09-01 19:39:09 105 fL F 80.0-100.0 Transferrin [Mass/volume] in Serum or Plasma 2024-09-01 19:23:14 163 mg/dL F 250.0-380.0 Transferrin [Mass/volume] in Serum or Plasma 2024-09-01 19:23:14 163 mg/dL F 250.0-380.0 Ferritin [Mass/volume] in Serum or Plasma 2024-08-12 06:27:25 629 ng/mL F 10.0-291.0 IRON SATURATION 2024-08-12 06:03:06 24 % F 16.0-46.0 TIBC 2024-08-12 06:03:06 221 ug/dL F 250.0-425.0 Iron [Mass/volume] in Serum or Plasma 2024-08-12 06:00:06 54 ug/dL F 50.0-170.0 Iron binding capacity.unsaturated [Mass/volume] in Serum or Plasma 2024-08-12 06:00:06 167 ug/dL F 80.0-375.0 HCT CALC HGBX3 2024-08-11 20:28:53 24.3 % F 37.0-47.0 Erythrocyte distribution width [Ratio] by Automated count 2024-08-11 20:28:12 14.3 % F 11.0-15.0 Hemoglobin [Mass/volume] in Blood 2024-08-11 20:28:12 8.1 g/dL F 12.0-16.0 Platelets [#/volume] in Blood by Automated count 2024-08-11 20:28:12 54 x 10^3 cells/uL F 140.0-450.0 MCH [Entitic mass] by Automated count 2024-08-11 20:28:12 29.5 pg F 25.9-34.2 MCHC [Mass/volume] by Automated count 2024-08-11 20:28:12 29.9 g/dL F 29.6-35.3 Erythrocytes [#/volume] in Blood by Automated count 2024-08-11 20:28:12 2.74 x 10'6 cells/uL F 3.85-5.2 Hematocrit [Volume Fraction] of Blood by Automated count 2024-08-11 20:28:12 27 % F 37.0-47.0 MCV [Entitic volume] by Automated count 2024-08-11 20:28:12 98.7 fL F 80.0-100.0 Transferrin [Mass/volume] in Serum or Plasma 2024-08-11 16:36:22 167 mg/dL F 250.0-380.0 Reticulocytes/100 erythrocytes in Blood by Automated count 2024-08-10 14:13:13 1.49 % F 0.7-2.5 IRON SATURATION 2024-08-10 08:36:41 F Canceled - Specimen not received 5 days past draw date TIBC 2024-08-10 08:36:41 F Canceled - Specimen not received 5 days past draw date Transferrin [Mass/volume] in Serum or Plasma 2024-08-10 08:23:28 F Canceled - Specimen not received 5 days past draw date Iron [Mass/volume] in Serum or Plasma 2024-08-10 08:23:28 F Canceled - Specimen not received 5 days past draw date Iron binding capacity.unsaturated [Mass/volume] in Serum or Plasma 2024-08-10 08:23:28 F Canceled - Specimen not received 5 days past draw date Ferritin [Mass/volume] in Serum or Plasma 2024-08-10 08:23:28 F Canceled - Specimen not received 5 days past draw date HCT CALC HGBX3 2024-08-07 13:44:04 26.7 % F 37.0-47.0 Erythrocyte distribution width [Ratio] by Automated count 2024-08-07 13:43:09 14.3 % F 11.0-15.0 Hemoglobin [Mass/volume] in Blood 2024-08-07 13:43:09 8.9 g/dL F 12.0-16.0 Platelets [#/volume] in Blood by Automated count 2024-08-07 13:43:09 70 x 10^3 cells/uL F 140.0-450.0 MCH [Entitic mass] by Automated count 2024-08-07 13:43:09 29.4 pg F 25.9-34.2 Erythrocytes [#/volume] in Blood by Automated count 2024-08-07 13:43:09 3.04 x 10'6 cells/uL F 3.85-5.2 MCHC [Mass/volume] by Automated count 2024-08-07 13:43:09 29.9 g/dL F 29.6-35.3 Hematocrit [Volume Fraction] of Blood by Automated count 2024-08-07 13:43:09 29.8 % F 37.0-47.0 MCV [Entitic volume] by Automated count 2024-08-07 13:43:09 98.1 fL F 80.0-100.0 Reticulocytes/100 erythrocytes in Blood by Automated count 2024-08-06 08:22:07 F Canceled - Specimen not received 5 days past draw date HCT CALC HGBX3 2024-07-05 23:40:23 29.4 % F 37.0-47.0 HCT CALC HGBX3 2024-07-05 23:40:23 29.4 % F 37.0-47.0 Erythrocyte distribution width [Ratio] by Automated count 2024-07-05 23:39:19 14.9 % F 11.0-15.0 Hemoglobin [Mass/volume] in Blood 2024-07-05 23:39:19 9.8 g/dL F 12.0-16.0 Platelets [#/volume] in Blood by Automated count 2024-07-05 23:39:19 97 x 10^3 cells/uL F 140.0-450.0 MCH [Entitic mass] by Automated count 2024-07-05 23:39:19 30.3 pg F 25.9-34.2 MCHC [Mass/volume] by Automated count 2024-07-05 23:39:19 29.7 g/dL F 29.6-35.3 Erythrocytes [#/volume] in Blood by Automated count 2024-07-05 23:39:19 3.22 x 10'6 cells/uL F 3.85-5.2 Hematocrit [Volume Fraction] of Blood by Automated count 2024-07-05 23:39:19 32.8 % F 37.0-47.0 MCV [Entitic volume] by Automated count 2024-07-05 23:39:19 102.2 fL F 80.0-100.0 Erythrocyte distribution width [Ratio] by Automated count 2024-07-05 23:39:19 14.9 % F 11.0-15.0 Hemoglobin [Mass/volume] in Blood 2024-07-05 23:39:19 9.8 g/dL F 12.0-16.0 Platelets [#/volume] in Blood by Automated count 2024-07-05 23:39:19 97 x 10^3 cells/uL F 140.0-450.0 MCH [Entitic mass] by Automated count 2024-07-05 23:39:19 30.3 pg F 25.9-34.2 MCHC [Mass/volume] by Automated count 2024-07-05 23:39:19 29.7 g/dL F 29.6-35.3 Erythrocytes [#/volume] in Blood by Automated count 2024-07-05 23:39:19 3.22 x 10'6 cells/uL F 3.85-5.2 Hematocrit [Volume Fraction] of Blood by Automated count 2024-07-05 23:39:19 32.8 % F 37.0-47.0 MCV [Entitic volume] by Automated count 2024-07-05 23:39:19 102.2 fL F 80.0-100.0 Transferrin [Mass/volume] in Serum or Plasma 2024-07-05 01:25:42 197 mg/dL F 250.0-380.0 Transferrin [Mass/volume] in Serum or Plasma 2024-07-05 01:25:42 197 mg/dL F 250.0-380.0 HCT CALC HGBX3 2024-06-08 19:56:17 24.6 % F 37.0-47.0 HCT CALC HGBX3 2024-06-08 19:56:17 24.6 % F 37.0-47.0 HCT CALC HGBX3 2024-06-08 19:56:17 24.6 % F 37.0-47.0 Erythrocyte distribution width [Ratio] by Automated count 2024-06-08 19:55:16 14.9 % F 11.0-15.0 Hemoglobin [Mass/volume] in Blood 2024-06-08 19:55:16 8.2 g/dL F 12.0-16.0 Platelets [#/volume] in Blood by Automated count 2024-06-08 19:55:16 75 x 10^3 cells/uL F 140.0-450.0 MCH [Entitic mass] by Automated count 2024-06-08 19:55:16 31.1 pg F 25.9-34.2 MCHC [Mass/volume] by Automated count 2024-06-08 19:55:16 30.5 g/dL F 29.6-35.3 Erythrocytes [#/volume] in Blood by Automated count 2024-06-08 19:55:16 2.65 x 10'6 cells/uL F 3.85-5.2 Hematocrit [Volume Fraction] of Blood by Automated count 2024-06-08 19:55:16 27 % F 37.0-47.0 MCV [Entitic volume] by Automated count 2024-06-08 19:55:16 102 fL F 80.0-100.0 Erythrocyte distribution width [Ratio] by Automated count 2024-06-08 19:55:16 14.9 % F 11.0-15.0 Hemoglobin [Mass/volume] in Blood 2024-06-08 19:55:16 8.2 g/dL F 12.0-16.0 Platelets [#/volume] in Blood by Automated count 2024-06-08 19:55:16 75 x 10^3 cells/uL F 140.0-450.0 MCH [Entitic mass] by Automated count 2024-06-08 19:55:16 31.1 pg F 25.9-34.2 MCHC [Mass/volume] by Automated count 2024-06-08 19:55:16 30.5 g/dL F 29.6-35.3 Erythrocytes [#/volume] in Blood by Automated count 2024-06-08 19:55:16 2.65 x 10'6 cells/uL F 3.85-5.2 Hematocrit [Volume Fraction] of Blood by Automated count 2024-06-08 19:55:16 27 % F 37.0-47.0 MCV [Entitic volume] by Automated count 2024-06-08 19:55:16 102 fL F 80.0-100.0 Erythrocyte distribution width [Ratio] by Automated count 2024-06-08 19:55:16 14.9 % F 11.0-15.0 Hemoglobin [Mass/volume] in Blood 2024-06-08 19:55:16 8.2 g/dL F 12.0-16.0 Platelets [#/volume] in Blood by Automated count 2024-06-08 19:55:16 75 x 10^3 cells/uL F 140.0-450.0 MCH [Entitic mass] by Automated count 2024-06-08 19:55:16 31.1 pg F 25.9-34.2 MCHC [Mass/volume] by Automated count 2024-06-08 19:55:16 30.5 g/dL F 29.6-35.3 Erythrocytes [#/volume] in Blood by Automated count 2024-06-08 19:55:16 2.65 x 10'6 cells/uL F 3.85-5.2 Hematocrit [Volume Fraction] of Blood by Automated count 2024-06-08 19:55:16 27 % F 37.0-47.0 MCV [Entitic volume] by Automated count 2024-06-08 19:55:16 102 fL F 80.0-100.0 Transferrin [Mass/volume] in Serum or Plasma 2024-06-08 15:31:19 163 mg/dL F 250.0-380.0 Transferrin [Mass/volume] in Serum or Plasma 2024-06-08 15:31:19 163 mg/dL F 250.0-380.0 Transferrin [Mass/volume] in Serum or Plasma 2024-06-08 15:31:19 163 mg/dL F 250.0-380.0 IRON SATURATION 2024-05-03 06:58:50 18 % F 16.0-46.0 TIBC 2024-05-03 06:58:50 241 ug/dL F 250.0-425.0 IRON SATURATION 2024-05-03 06:58:50 18 % F 16.0-46.0 TIBC 2024-05-03 06:58:50 241 ug/dL F 250.0-425.0 HCT CALC HGBX3 2024-05-03 06:58:50 21.3 % F 37.0-47.0 HCT CALC HGBX3 2024-05-03 06:58:50 21.3 % F 37.0-47.0 Iron [Mass/volume] in Serum or Plasma 2024-05-03 06:49:39 43 ug/dL F 50.0-170.0 Iron binding capacity.unsaturated [Mass/volume] in Serum or Plasma 2024-05-03 06:49:39 198 ug/dL F 80.0-375.0 Iron [Mass/volume] in Serum or Plasma 2024-05-03 06:49:39 43 ug/dL F 50.0-170.0 Iron binding capacity.unsaturated [Mass/volume] in Serum or Plasma 2024-05-03 06:49:39 198 ug/dL F 80.0-375.0 Ferritin [Mass/volume] in Serum or Plasma 2024-05-03 03:59:58 444 ng/mL F 10.0-291.0 Ferritin [Mass/volume] in Serum or Plasma 2024-05-03 03:59:58 444 ng/mL F 10.0-291.0 Erythrocyte distribution width [Ratio] by Automated count 2024-05-03 03:34:36 13.3 % F 11.0-15.0 Hemoglobin [Mass/volume] in Blood 2024-05-03 03:34:36 7.1 g/dL F 12.0-16.0 Platelets [#/volume] in Blood by Automated count 2024-05-03 03:34:36 67 x 10^3 cells/uL F 140.0-450.0 MCH [Entitic mass] by Automated count 2024-05-03 03:34:36 33.2 pg F 25.9-34.2 MCHC [Mass/volume] by Automated count 2024-05-03 03:34:36 31.2 g/dL F 29.6-35.3 Erythrocytes [#/volume] in Blood by Automated count 2024-05-03 03:34:36 2.14 x 10'6 cells/uL F 3.85-5.2 Hematocrit [Volume Fraction] of Blood by Automated count 2024-05-03 03:34:36 22.8 % F 37.0-47.0 MCV [Entitic volume] by Automated count 2024-05-03 03:34:36 106.5 fL F 80.0-100.0 Erythrocyte distribution width [Ratio] by Automated count 2024-05-03 03:34:36 13.3 % F 11.0-15.0 Hemoglobin [Mass/volume] in Blood 2024-05-03 03:34:36 7.1 g/dL F 12.0-16.0 Platelets [#/volume] in Blood by Automated count 2024-05-03 03:34:36 67 x 10^3 cells/uL F 140.0-450.0 MCH [Entitic mass] by Automated count 2024-05-03 03:34:36 33.2 pg F 25.9-34.2 MCHC [Mass/volume] by Automated count 2024-05-03 03:34:36 31.2 g/dL F 29.6-35.3 Erythrocytes [#/volume] in Blood by Automated count 2024-05-03 03:34:36 2.14 x 10'6 cells/uL F 3.85-5.2 Hematocrit [Volume Fraction] of Blood by Automated count 2024-05-03 03:34:36 22.8 % F 37.0-47.0 MCV [Entitic volume] by Automated count 2024-05-03 03:34:36 106.5 fL F 80.0-100.0 Transferrin [Mass/volume] in Serum or Plasma 2024-05-02 21:32:35 187 mg/dL F 250.0-380.0 Transferrin [Mass/volume] in Serum or Plasma 2024-05-02 21:32:35 187 mg/dL F 250.0-380.0 HCT CALC HGBX3 2024-03-30 05:00:57 24.9 % F 37.0-47.0 HCT CALC HGBX3 2024-03-30 05:00:57 24.9 % F 37.0-47.0 HCT CALC HGBX3 2024-03-30 05:00:57 24.9 % F 37.0-47.0 Hemoglobin [Mass/volume] in Blood 2024-03-30 05:00:40 8.3 g/dL F 12.0-16.0 Erythrocyte distribution width [Ratio] by Automated count 2024-03-30 05:00:40 15.1 % F 11.0-15.0 Platelets [#/volume] in Blood by Automated count 2024-03-30 05:00:40 79 x 10^3 cells/uL F 140.0-450.0 MCH [Entitic mass] by Automated count 2024-03-30 05:00:40 31.4 pg F 25.9-34.2 MCHC [Mass/volume] by Automated count 2024-03-30 05:00:40 30.2 g/dL F 29.6-35.3 Erythrocytes [#/volume] in Blood by Automated count 2024-03-30 05:00:40 2.66 x 10'6 cells/uL F 3.85-5.2 Hematocrit [Volume Fraction] of Blood by Automated count 2024-03-30 05:00:40 27.7 % F 37.0-47.0 MCV [Entitic volume] by Automated count 2024-03-30 05:00:40 104.1 fL F 80.0-100.0 Erythrocyte distribution width [Ratio] by Automated count 2024-03-30 05:00:40 15.1 % F 11.0-15.0 Hemoglobin [Mass/volume] in Blood 2024-03-30 05:00:40 8.3 g/dL F 12.0-16.0 Platelets [#/volume] in Blood by Automated count 2024-03-30 05:00:40 79 x 10^3 cells/uL F 140.0-450.0 MCH [Entitic mass] by Automated count 2024-03-30 05:00:40 31.4 pg F 25.9-34.2 MCHC [Mass/volume] by Automated count 2024-03-30 05:00:40 30.2 g/dL F 29.6-35.3 Erythrocytes [#/volume] in Blood by Automated count 2024-03-30 05:00:40 2.66 x 10'6 cells/uL F 3.85-5.2 Hematocrit [Volume Fraction] of Blood by Automated count 2024-03-30 05:00:40 27.7 % F 37.0-47.0 MCV [Entitic volume] by Automated count 2024-03-30 05:00:40 104.1 fL F 80.0-100.0 Erythrocyte distribution width [Ratio] by Automated count 2024-03-30 05:00:40 15.1 % F 11.0-15.0 Hemoglobin [Mass/volume] in Blood 2024-03-30 05:00:40 8.3 g/dL F 12.0-16.0 Platelets [#/volume] in Blood by Automated count 2024-03-30 05:00:40 79 x 10^3 cells/uL F 140.0-450.0 MCH [Entitic mass] by Automated count 2024-03-30 05:00:40 31.4 pg F 25.9-34.2 MCHC [Mass/volume] by Automated count 2024-03-30 05:00:40 30.2 g/dL F 29.6-35.3 Erythrocytes [#/volume] in Blood by Automated count 2024-03-30 05:00:40 2.66 x 10'6 cells/uL F 3.85-5.2 Hematocrit [Volume Fraction] of Blood by Automated count 2024-03-30 05:00:40 27.7 % F 37.0-47.0 MCV [Entitic volume] by Automated count 2024-03-30 05:00:40 104.1 fL F 80.0-100.0 Transferrin [Mass/volume] in Serum or Plasma 2024-03-30 03:53:37 158 mg/dL F 250.0-380.0 Transferrin [Mass/volume] in Serum or Plasma 2024-03-30 03:53:37 158 mg/dL F 250.0-380.0 Transferrin [Mass/volume] in Serum or Plasma 2024-03-30 03:53:37 158 mg/dL F 250.0-380.0 HCT CALC HGBX3 2024-03-01 01:27:45 24.6 % F 37.0-47.0 Erythrocyte distribution width [Ratio] by Automated count 2024-03-01 01:26:42 15.1 % F 11.0-15.0 Hemoglobin [Mass/volume] in Blood 2024-03-01 01:26:42 8.2 g/dL F 12.0-16.0 Platelets [#/volume] in Blood by Automated count 2024-03-01 01:26:42 62 x 10^3 cells/uL F 140.0-450.0 MCH [Entitic mass] by Automated count 2024-03-01 01:26:42 30.3 pg F 25.9-34.2 Erythrocytes [#/volume] in Blood by Automated count 2024-03-01 01:26:42 2.71 x 10'6 cells/uL F 3.85-5.2 MCHC [Mass/volume] by Automated count 2024-03-01 01:26:42 31.2 g/dL F 29.6-35.3 Hematocrit [Volume Fraction] of Blood by Automated count 2024-03-01 01:26:42 26.3 % F 37.0-47.0 MCV [Entitic volume] by Automated count 2024-03-01 01:26:42 97.2 fL F 80.0-100.0 Transferrin [Mass/volume] in Serum or Plasma 2024-02-29 17:02:39 154 mg/dL F 250.0-380.0 IRON SATURATION 2024-02-04 04:10:25 22 % F 16.0-46.0 TIBC 2024-02-04 04:10:25 213 ug/dL F 250.0-425.0 Iron [Mass/volume] in Serum or Plasma 2024-02-04 04:07:43 47 ug/dL F 50.0-170.0 Iron binding capacity.unsaturated [Mass/volume] in Serum or Plasma 2024-02-04 04:07:43 166 ug/dL F 80.0-375.0 Ferritin [Mass/volume] in Serum or Plasma 2024-02-03 21:24:09 459 ng/mL F 10.0-291.0 HCT CALC HGBX3 2024-02-03 20:03:27 31.2 % F 37.0-47.0 Erythrocyte distribution width [Ratio] by Automated count 2024-02-03 20:02:24 15.6 % F 11.0-15.0 Hemoglobin [Mass/volume] in Blood 2024-02-03 20:02:24 10.4 g/dL F 12.0-16.0 Platelets [#/volume] in Blood by Automated count 2024-02-03 20:02:24 81 x 10^3 cells/uL F 140.0-450.0 MCH [Entitic mass] by Automated count 2024-02-03 20:02:24 30.7 pg F 25.9-34.2 MCHC [Mass/volume] by Automated count 2024-02-03 20:02:24 31.1 g/dL F 29.6-35.3 Erythrocytes [#/volume] in Blood by Automated count 2024-02-03 20:02:24 3.38 x 10'6 cells/uL F 3.85-5.2 Hematocrit [Volume Fraction] of Blood by Automated count 2024-02-03 20:02:24 33.3 % F 37.0-47.0 MCV [Entitic volume] by Automated count 2024-02-03 20:02:24 98.6 fL F 80.0-100.0 Transferrin [Mass/volume] in Serum or Plasma 2024-02-03 19:48:32 159 mg/dL F 250.0-380.0 HCT CALC HGBX3 2024-01-18 23:54:02 31.5 % F 37.0-47.0 HCT CALC HGBX3 2024-01-18 23:54:02 31.5 % F 37.0-47.0 Erythrocyte distribution width [Ratio] by Automated count 2024-01-18 23:53:14 16.8 % F 11.0-15.0 Hemoglobin [Mass/volume] in Blood 2024-01-18 23:53:14 10.5 g/dL F 12.0-16.0 Platelets [#/volume] in Blood by Automated count 2024-01-18 23:53:14 65 x 10^3 cells/uL F 140.0-450.0 MCH [Entitic mass] by Automated count 2024-01-18 23:53:14 30.8 pg F 25.9-34.2 MCHC [Mass/volume] by Automated count 2024-01-18 23:53:14 29.3 g/dL F 29.6-35.3 Erythrocytes [#/volume] in Blood by Automated count 2024-01-18 23:53:14 3.4 x 10'6 cells/uL F 3.85-5.2 Hematocrit [Volume Fraction] of Blood by Automated count 2024-01-18 23:53:14 35.8 % F 37.0-47.0 MCV [Entitic volume] by Automated count 2024-01-18 23:53:14 105.1 fL F 80.0-100.0 Erythrocyte distribution width [Ratio] by Automated count 2024-01-18 23:53:14 16.8 % F 11.0-15.0 Hemoglobin [Mass/volume] in Blood 2024-01-18 23:53:14 10.5 g/dL F 12.0-16.0 Platelets [#/volume] in Blood by Automated count 2024-01-18 23:53:14 65 x 10^3 cells/uL F 140.0-450.0 MCH [Entitic mass] by Automated count 2024-01-18 23:53:14 30.8 pg F 25.9-34.2 MCHC [Mass/volume] by Automated count 2024-01-18 23:53:14 29.3 g/dL F 29.6-35.3 Erythrocytes [#/volume] in Blood by Automated count 2024-01-18 23:53:14 3.4 x 10'6 cells/uL F 3.85-5.2 Hematocrit [Volume Fraction] of Blood by Automated count 2024-01-18 23:53:14 35.8 % F 37.0-47.0 MCV [Entitic volume] by Automated count 2024-01-18 23:53:14 105.1 fL F 80.0-100.0 Transferrin [Mass/volume] in Serum or Plasma 2024-01-18 21:13:35 172 mg/dL F 250.0-380.0 Transferrin [Mass/volume] in Serum or Plasma 2024-01-18 21:13:35 172 mg/dL F 250.0-380.0 Iron [Mass/volume] in Serum or Plasma IRON SATURATION Ferritin [Mass/volume] in Serum or Plasma TIBC Iron binding capacity.unsaturated [Mass/volume] in Serum or Plasma Iron [Mass/volume] in Serum or Plasma IRON SATURATION Ferritin [Mass/volume] in Serum or Plasma TIBC Iron binding capacity.unsaturated [Mass/volume] in Serum or Plasma TIBC Iron [Mass/volume] in Serum or Plasma IRON SATURATION Iron binding capacity.unsaturated [Mass/volume] in Serum or Plasma Ferritin [Mass/volume] in Serum or Plasma Iron binding capacity.unsaturated [Mass/volume] in Serum or Plasma Iron [Mass/volume] in Serum or Plasma IRON SATURATION TIBC Ferritin [Mass/volume] in Serum or Plasma Ferritin [Mass/volume] in Serum or Plasma TIBC IRON SATURATION Iron binding capacity.unsaturated [Mass/volume] in Serum or Plasma Iron [Mass/volume] in Serum or Plasma TIBC Iron binding capacity.unsaturated [Mass/volume] in Serum or Plasma IRON SATURATION Iron [Mass/volume] in Serum or Plasma Comorbidities Description Draw Date Result/Unit Status Ref Range Result Comments Hemoglobin A1c/Hemoglobin.total in Blood 2025-05-10 07:12:10 4.6 %A1c F 0.0-5.6 Hemoglobin A1c/Hemoglobin.total in Blood 2025-05-10 07:12:10 4.6 %A1c F 0.0-5.6 Hemoglobin A1c/Hemoglobin.total in Blood 2025-05-02 14:43:08 4.6 %A1c F 0.0-5.6 Hemoglobin A1c/Hemoglobin.total in Blood 2025-05-02 14:43:08 4.6 %A1c F 0.0-5.6 Hemoglobin A1c/Hemoglobin.total in Blood 2025-05-02 14:43:08 4.6 %A1c F 0.0-5.6 Hemoglobin A1c/Hemoglobin.total in Blood 2025-01-23 04:42:15 5.7 %A1c F 0.0-5.6 Hemoglobin A1c/Hemoglobin.total in Blood 2025-01-23 04:42:15 5.7 %A1c F 0.0-5.6 Hemoglobin A1c/Hemoglobin.total in Blood 2025-01-23 04:42:15 5.7 %A1c F 0.0-5.6 Hemoglobin A1c/Hemoglobin.total in Blood 2024-12-02 00:13:17 4.8 %A1c F 0.0-5.6 Hemoglobin A1c/Hemoglobin.total in Blood 2024-08-10 14:40:14 5.3 %A1c F 0.0-5.6 Hemoglobin A1c/Hemoglobin.total in Blood 2024-08-06 08:22:07 F Canceled - Speci men not received 5 days past draw date Hemoglobin A1c/Hemoglobin.total in Blood 2024-05-03 06:02:51 4.6 %A1c F 0.0-5.6 Hemoglobin A1c/Hemoglobin.total in Blood 2024-05-03 06:02:51 4.6 %A1c F 0.0-5.6 Hemoglobin A1c/Hemoglobin.total in Blood 2024-01-19 04:42:31 4.6 %A1c F 0.0-5.6 Hemoglobin A1c/Hemoglobin.total in Blood 2024-01-19 04:42:31 4.6 %A1c F 0.0-5.6 FluidBP Description Draw Date Result/Unit Status Ref Range Result Comments Sodium [Moles/volume] in Serum or Plasma 2025-07-03 18:06:42 138 mEq/L F 132.0-146.0 Sodium [Moles/volume] in Serum or Plasma 2025-05-30 06:52:55 138 mEq/L F 132.0-146.0 Sodium [Moles/volume] in Serum or Plasma 2025-05-30 06:52:55 138 mEq/L F 132.0-146.0 Sodium [Moles/volume] in Serum or Plasma 2025-05-10 06:37:22 139 mEq/L F 132.0-146.0 Sodium [Moles/volume] in Serum or Plasma 2025-05-10 06:37:22 139 mEq/L F 132.0-146.0 Sodium [Moles/volume] in Serum or Plasma 2025-05-02 16:59:42 140 mEq/L F 136.0-145.0 Sodium [Moles/volume] in Serum or Plasma 2025-05-02 16:59:42 140 mEq/L F 136.0-145.0 Sodium [Moles/volume] in Serum or Plasma 2025-05-02 16:59:42 140 mEq/L F 136.0-145.0 Sodium [Moles/volume] in Serum or Plasma 2025-02-28 23:35:52 135 mEq/L F 132.0-146.0 Sodium [Moles/volume] in Serum or Plasma 2025-02-28 23:35:52 135 mEq/L F 132.0-146.0 Sodium [Moles/volume] in Serum or Plasma 2025-01-22 20:31:23 141 mEq/L F 132.0-146.0 Sodium [Moles/volume] in Serum or Plasma 2025-01-22 20:31:23 141 mEq/L F 132.0-146.0 Sodium [Moles/volume] in Serum or Plasma 2025-01-22 20:31:23 141 mEq/L F 132.0-146.0 Sodium [Moles/volume] in Serum or Plasma 2025-01-11 18:36:39 138 mmol/L F 136-145 Sodium [Moles/volume] in Serum or Plasma 2025-01-11 18:36:39 138 mmol/L F 136-145 Sodium [Moles/volume] in Serum or Plasma 2024-11-30 07:14:56 138 mEq/L F 132.0-146.0 Sodium [Moles/volume] in Serum or Plasma 2024-11-30 07:14:56 138 mEq/L F 132.0-146.0 Sodium [Moles/volume] in Serum or Plasma 2024-11-02 05:34:21 140 mEq/L F 132.0-146.0 Sodium [Moles/volume] in Serum or Plasma 2024-11-02 05:34:21 140 mEq/L F 132.0-146.0 Sodium [Moles/volume] in Serum or Plasma 2024-11-02 05:34:21 140 mEq/L F 132.0-146.0 Sodium [Moles/volume] in Serum or Plasma 2024-10-05 20:04:41 138 mEq/L F 132.0-146.0 Sodium [Moles/volume] in Serum or Plasma 2024-10-05 20:04:41 138 mEq/L F 132.0-146.0 Sodium [Moles/volume] in Serum or Plasma 2024-09-02 06:43:33 138 mEq/L F 132.0-146.0 Sodium [Moles/volume] in Serum or Plasma 2024-09-02 06:43:33 138 mEq/L F 132.0-146.0 Sodium [Moles/volume] in Serum or Plasma 2024-08-12 06:00:06 141 mEq/L F 132.0-146.0 Sodium [Moles/volume] in Serum or Plasma 2024-08-10 08:23:28 F Canceled - Specimen not received 5 days past draw date Sodium [Moles/volume] in Serum or Plasma 2024-07-05 07:15:39 136 mEq/L F 132.0-146.0 Sodium [Moles/volume] in Serum or Plasma 2024-07-05 07:15:39 136 mEq/L F 132.0-146.0 Sodium [Moles/volume] in Serum or Plasma 2024-06-08 17:45:01 138 mEq/L F 132.0-146.0 Sodium [Moles/volume] in Serum or Plasma 2024-06-08 17:45:01 138 mEq/L F 132.0-146.0 Sodium [Moles/volume] in Serum or Plasma 2024-06-08 17:45:01 138 mEq/L F 132.0-146.0 Sodium [Moles/volume] in Serum or Plasma 2024-05-03 06:49:39 135 mEq/L F 132.0-146.0 Sodium [Moles/volume] in Serum or Plasma 2024-05-03 06:49:39 135 mEq/L F 132.0-146.0 Sodium [Moles/volume] in Serum or Plasma 2024-03-30 07:17:39 138 mEq/L F 132.0-146.0 Sodium [Moles/volume] in Serum or Plasma 2024-03-30 07:17:39 138 mEq/L F 132.0-146.0 Sodium [Moles/volume] in Serum or Plasma 2024-03-30 07:17:39 138 mEq/L F 132.0-146.0 Sodium [Moles/volume] in Serum or Plasma 2024-03-01 06:40:37 140 mEq/L F 132.0-146.0 Sodium [Moles/volume] in Serum or Plasma 2024-02-04 04:07:43 139 mEq/L F 132.0-146.0 Sodium [Moles/volume] in Serum or Plasma 2024-01-19 04:08:41 138 mEq/L F 132.0-146.0 Sodium [Moles/volume] in Serum or Plasma 2024-01-19 04:08:41 138 mEq/L F 132.0-146.0 General Description Draw Date Result/Unit Status Ref Range Result Comments Chloride [Moles/volume] in Serum or Plasma 2025-07-03 18:06:42 100 mEq/L F 99.0-109.0 Alanine aminotransferase [Enzymatic activity/volume] in Serum or Plasma 2025-07-03 14:56:19 22 U/L F 10.0-49.0 Aspartate aminotransferase [Enzymatic activity/volume] in Serum or Plasma 2025-07-03 14:56:19 54 U/L F 0.0-33.0 Chloride [Moles/volume] in Serum or Plasma 2025-05-30 06:52:55 96 mEq/L F 99.0-109.0 Chloride [Moles/volume] in Serum or Plasma 2025-05-30 06:52:55 96 mEq/L F 99.0-109.0 Alanine aminotransferase [Enzymatic activity/volume] in Serum or Plasma 2025-05-30 01:55:27 9 U/L F 10.0-49.0 Aspartate aminotransferase [Enzymatic activity/volume] in Serum or Plasma 2025-05-30 01:55:27 16 U/L F 0.0-33.0 Alanine aminotransferase [Enzymatic activity/volume] in Serum or Plasma 2025-05-30 01:55:27 9 U/L F 10.0-49.0 Aspartate aminotransferase [Enzymatic activity/volume] in Serum or Plasma 2025-05-30 01:55:27 16 U/L F 0.0-33.0 Alanine aminotransferase [Enzymatic activity/volume] in Serum or Plasma 2025-05-16 14:01:10 9 U/L F 10.0-49.0 Alanine aminotransferase [Enzymatic activity/volume] in Serum or Plasma 2025-05-14 07:26:09 F Canceled - Specimen not received 5 days past draw date Chloride [Moles/volume] in Serum or Plasma 2025-05-10 06:37:22 101 mEq/L F 99.0-109.0 Chloride [Moles/volume] in Serum or Plasma 2025-05-10 06:37:22 101 mEq/L F 99.0-109.0 Aspartate aminotransferase [Enzymatic activity/volume] in Serum or Plasma 2025-05-09 19:07:18 33 U/L F 0.0-33.0 Aspartate aminotransferase [Enzymatic activity/volume] in Serum or Plasma 2025-05-09 19:07:18 33 U/L F 0.0-33.0 Aluminum [Mass/volume] in Serum or Plasma 2025-05-09 16:54:50 14 ug/L F 0.0-9.0 Aluminum [Mass/volume] in Serum or Plasma 2025-05-09 16:54:50 14 ug/L F 0.0-9.0 Chloride [Moles/volume] in Serum or Plasma 2025-05-02 16:59:42 99 mEq/L F 98.0-107.0 Chloride [Moles/volume] in Serum or Plasma 2025-05-02 16:59:42 99 mEq/L F 98.0-107.0 Chloride [Moles/volume] in Serum or Plasma 2025-05-02 16:59:42 99 mEq/L F 98.0-107.0 Alanine aminotransferase [Enzymatic activity/volume] in Serum or Plasma 2025-05-02 13:55:22 7 U/L F 10.0-49.0 Aspartate aminotransferase [Enzymatic activity/volume] in Serum or Plasma 2025-05-02 13:55:22 13 U/L F 0.0-33.0 Alanine aminotransferase [Enzymatic activity/volume] in Serum or Plasma 2025-05-02 13:55:22 7 U/L F 10.0-49.0 Aspartate aminotransferase [Enzymatic activity/volume] in Serum or Plasma 2025-05-02 13:55:22 13 U/L F 0.0-33.0 Alanine aminotransferase [Enzymatic activity/volume] in Serum or Plasma 2025-05-02 13:55:22 7 U/L F 10.0-49.0 Aspartate aminotransferase [Enzymatic activity/volume] in Serum or Plasma 2025-05-02 13:55:22 13 U/L F 0.0-33.0 Chloride [Moles/volume] in Serum or Plasma 2025-02-28 23:35:52 95 mEq/L F 99.0-109.0 Chloride [Moles/volume] in Serum or Plasma 2025-02-28 23:35:52 95 mEq/L F 99.0-109.0 Alanine aminotransferase [Enzymatic activity/volume] in Serum or Plasma 2025-02-28 19:43:20 9 U/L F 10.0-49.0 Aspartate aminotransferase [Enzymatic activity/volume] in Serum or Plasma 2025-02-28 19:43:20 9 U/L F 0.0-33.0 Aspartate aminotransferase [Enzymatic activity/volume] in Serum or Plasma 2025-02-28 19:43:20 9 U/L F 0.0-33.0 Alanine aminotransferase [Enzymatic activity/volume] in Serum or Plasma 2025-02-28 19:43:20 9 U/L F 10.0-49.0 Chloride [Moles/volume] in Serum or Plasma 2025-01-22 20:31:23 98 mEq/L F 99.0-109.0 Chloride [Moles/volume] in Serum or Plasma 2025-01-22 20:31:23 98 mEq/L F 99.0-109.0 Chloride [Moles/volume] in Serum or Plasma 2025-01-22 20:31:23 98 mEq/L F 99.0-109.0 Aspartate aminotransferase [Enzymatic activity/volume] in Serum or Plasma 2025-01-22 13:05:14 10 U/L F 0.0-33.0 Alanine aminotransferase [Enzymatic activity/volume] in Serum or Plasma 2025-01-22 13:05:14 9 U/L F 10.0-49.0 Aspartate aminotransferase [Enzymatic activity/volume] in Serum or Plasma 2025-01-22 13:05:14 10 U/L F 0.0-33.0 Alanine aminotransferase [Enzymatic activity/volume] in Serum or Plasma 2025-01-22 13:05:14 9 U/L F 10.0-49.0 Aspartate aminotransferase [Enzymatic activity/volume] in Serum or Plasma 2025-01-22 13:05:14 10 U/L F 0.0-33.0 Alanine aminotransferase [Enzymatic activity/volume] in Serum or Plasma 2025-01-22 13:05:14 9 U/L F 10.0-49.0 Chloride [Moles/volume] in Serum or Plasma 2025-01-11 18:36:39 96 mmol/L F 98-109 Chloride [Moles/volume] in Serum or Plasma 2025-01-11 18:36:39 96 mmol/L F 98-109 Chloride [Moles/volume] in Serum or Plasma 2024-11-30 07:14:56 98 mEq/L F 99.0-109.0 Chloride [Moles/volume] in Serum or Plasma 2024-11-30 07:14:56 98 mEq/L F 99.0-109.0 Aspartate aminotransferase [Enzymatic activity/volume] in Serum or Plasma 2024-11-29 14:39:18 9 U/L F 0.0-33.0 Alanine aminotransferase [Enzymatic activity/volume] in Serum or Plasma 2024-11-29 14:39:18 9 U/L F 10.0-49.0 Aspartate aminotransferase [Enzymatic activity/volume] in Serum or Plasma 2024-11-29 14:39:18 9 U/L F 0.0-33.0 Alanine aminotransferase [Enzymatic activity/volume] in Serum or Plasma 2024-11-29 14:39:18 9 U/L F 10.0-49.0 Chloride [Moles/volume] in Serum or Plasma 2024-11-02 05:34:21 99 mEq/L F 99.0-109.0 Chloride [Moles/volume] in Serum or Plasma 2024-11-02 05:34:21 99 mEq/L F 99.0-109.0 Chloride [Moles/volume] in Serum or Plasma 2024-11-02 05:34:21 99 mEq/L F 99.0-109.0 Aspartate aminotransferase [Enzymatic activity/volume] in Serum or Plasma 2024-11-01 13:36:15 12 U/L F 0.0-33.0 Alanine aminotransferase [Enzymatic activity/volume] in Serum or Plasma 2024-11-01 13:36:15 9 U/L F 10.0-49.0 Aspartate aminotransferase [Enzymatic activity/volume] in Serum or Plasma 2024-11-01 13:36:15 12 U/L F 0.0-33.0 Alanine aminotransferase [Enzymatic activity/volume] in Serum or Plasma 2024-11-01 13:36:15 9 U/L F 10.0-49.0 Aspartate aminotransferase [Enzymatic activity/volume] in Serum or Plasma 2024-11-01 13:36:15 12 U/L F 0.0-33.0 Alanine aminotransferase [Enzymatic activity/volume] in Serum or Plasma 2024-11-01 13:36:15 9 U/L F 10.0-49.0 Chloride [Moles/volume] in Serum or Plasma 2024-10-05 20:04:41 98 mEq/L F 99.0-109.0 Chloride [Moles/volume] in Serum or Plasma 2024-10-05 20:04:41 98 mEq/L F 99.0-109.0 Aspartate aminotransferase [Enzymatic activity/volume] in Serum or Plasma 2024-10-05 14:30:23 13 U/L F 0.0-33.0 Alanine aminotransferase [Enzymatic activity/volume] in Serum or Plasma 2024-10-05 14:30:23 9 U/L F 10.0-49.0 Aspartate aminotransferase [Enzymatic activity/volume] in Serum or Plasma 2024-10-05 14:30:23 13 U/L F 0.0-33.0 Alanine aminotransferase [Enzymatic activity/volume] in Serum or Plasma 2024-10-05 14:30:23 9 U/L F 10.0-49.0 Chloride [Moles/volume] in Serum or Plasma 2024-09-02 06:43:33 102 mEq/L F 99.0-109.0 Chloride [Moles/volume] in Serum or Plasma 2024-09-02 06:43:33 102 mEq/L F 99.0-109.0 Aspartate aminotransferase [Enzymatic activity/volume] in Serum or Plasma 2024-09-01 19:23:14 12 U/L F 0.0-33.0 Alanine aminotransferase [Enzymatic activity/volume] in Serum or Plasma 2024-09-01 19:23:14 9 U/L F 10.0-49.0 Aspartate aminotransferase [Enzymatic activity/volume] in Serum or Plasma 2024-09-01 19:23:14 12 U/L F 0.0-33.0 Alanine aminotransferase [Enzymatic activity/volume] in Serum or Plasma 2024-09-01 19:23:14 9 U/L F 10.0-49.0 Chloride [Moles/volume] in Serum or Plasma 2024-08-12 06:00:06 103 mEq/L F 99.0-109.0 Aspartate aminotransferase [Enzymatic activity/volume] in Serum or Plasma 2024-08-11 16:36:22 11 U/L F 0.0-33.0 Alanine aminotransferase [Enzymatic activity/volume] in Serum or Plasma 2024-08-11 16:36:22 9 U/L F 10.0-49.0 Alanine aminotransferase [Enzymatic activity/volume] in Serum or Plasma 2024-08-10 08:23:28 F Canceled - Specimen not received 5 days past draw date Chloride [Moles/volume] in Serum or Plasma 2024-08-10 08:23:28 F Canceled - Specimen not received 5 days past draw date Aspartate aminotransferase [Enzymatic activity/volume] in Serum or Plasma 2024-08-10 08:23:28 F Canceled - Specimen not received 5 days past draw date Chloride [Moles/volume] in Serum or Plasma 2024-07-05 07:15:39 99 mEq/L F 99.0-109.0 Chloride [Moles/volume] in Serum or Plasma 2024-07-05 07:15:39 99 mEq/L F 99.0-109.0 Aspartate aminotransferase [Enzymatic activity/volume] in Serum or Plasma 2024-07-05 01:25:42 25 U/L F 0.0-33.0 Alanine aminotransferase [Enzymatic activity/volume] in Serum or Plasma 2024-07-05 01:25:42 31 U/L F 10.0-49.0 Aspartate aminotransferase [Enzymatic activity/volume] in Serum or Plasma 2024-07-05 01:25:42 25 U/L F 0.0-33.0 Alanine aminotransferase [Enzymatic activity/volume] in Serum or Plasma 2024-07-05 01:25:42 31 U/L F 10.0-49.0 Chloride [Moles/volume] in Serum or Plasma 2024-06-08 17:45:01 102 mEq/L F 99.0-109.0 Chloride [Moles/volume] in Serum or Plasma 2024-06-08 17:45:01 102 mEq/L F 99.0-109.0 Chloride [Moles/volume] in Serum or Plasma 2024-06-08 17:45:01 102 mEq/L F 99.0-109.0 Aspartate aminotransferase [Enzymatic activity/volume] in Serum or Plasma 2024-06-08 15:31:19 22 U/L F 0.0-33.0 Alanine aminotransferase [Enzymatic activity/volume] in Serum or Plasma 2024-06-08 15:31:19 9 U/L F 10.0-49.0 Aspartate aminotransferase [Enzymatic activity/volume] in Serum or Plasma 2024-06-08 15:31:19 22 U/L F 0.0-33.0 Alanine aminotransferase [Enzymatic activity/volume] in Serum or Plasma 2024-06-08 15:31:19 9 U/L F 10.0-49.0 Aspartate aminotransferase [Enzymatic activity/volume] in Serum or Plasma 2024-06-08 15:31:19 22 U/L F 0.0-33.0 Alanine aminotransferase [Enzymatic activity/volume] in Serum or Plasma 2024-06-08 15:31:19 9 U/L F 10.0-49.0 Chloride [Moles/volume] in Serum or Plasma 2024-05-03 06:49:39 97 mEq/L F 99.0-109.0 Chloride [Moles/volume] in Serum or Plasma 2024-05-03 06:49:39 97 mEq/L F 99.0-109.0 Aspartate aminotransferase [Enzymatic activity/volume] in Serum or Plasma 2024-05-02 21:32:35 11 U/L F 0.0-33.0 Alanine aminotransferase [Enzymatic activity/volume] in Serum or Plasma 2024-05-02 21:32:35 9 U/L F 10.0-49.0 Aspartate aminotransferase [Enzymatic activity/volume] in Serum or Plasma 2024-05-02 21:32:35 11 U/L F 0.0-33.0 Alanine aminotransferase [Enzymatic activity/volume] in Serum or Plasma 2024-05-02 21:32:35 9 U/L F 10.0-49.0 Chloride [Moles/volume] in Serum or Plasma 2024-03-30 07:17:39 99 mEq/L F 99.0-109.0 Chloride [Moles/volume] in Serum or Plasma 2024-03-30 07:17:39 99 mEq/L F 99.0-109.0 Chloride [Moles/volume] in Serum or Plasma 2024-03-30 07:17:39 99 mEq/L F 99.0-109.0 Aspartate aminotransferase [Enzymatic activity/volume] in Serum or Plasma 2024-03-30 03:53:37 10 U/L F 0.0-33.0 Alanine aminotransferase [Enzymatic activity/volume] in Serum or Plasma 2024-03-30 03:53:37 9 U/L F 10.0-49.0 Aspartate aminotransferase [Enzymatic activity/volume] in Serum or Plasma 2024-03-30 03:53:37 10 U/L F 0.0-33.0 Alanine aminotransferase [Enzymatic activity/volume] in Serum or Plasma 2024-03-30 03:53:37 9 U/L F 10.0-49.0 Aspartate aminotransferase [Enzymatic activity/volume] in Serum or Plasma 2024-03-30 03:53:37 10 U/L F 0.0-33.0 Alanine aminotransferase [Enzymatic activity/volume] in Serum or Plasma 2024-03-30 03:53:37 9 U/L F 10.0-49.0 Chloride [Moles/volume] in Serum or Plasma 2024-03-01 06:40:37 105 mEq/L F 99.0-109.0 Aspartate aminotransferase [Enzymatic activity/volume] in Serum or Plasma 2024-02-29 17:02:39 13 U/L F 0.0-33.0 Alanine aminotransferase [Enzymatic activity/volume] in Serum or Plasma 2024-02-29 17:02:39 9 U/L F 10.0-49.0 Chloride [Moles/volume] in Serum or Plasma 2024-02-04 04:07:43 103 mEq/L F 99.0-109.0 Aspartate aminotransferase [Enzymatic activity/volume] in Serum or Plasma 2024-02-03 19:48:32 11 U/L F 0.0-33.0 Alanine aminotransferase [Enzymatic activity/volume] in Serum or Plasma 2024-02-03 19:48:32 9 U/L F 10.0-49.0 Chloride [Moles/volume] in Serum or Plasma 2024-01-19 04:08:41 102 mEq/L F 99.0-109.0 Chloride [Moles/volume] in Serum or Plasma 2024-01-19 04:08:41 102 mEq/L F 99.0-109.0 Aspartate aminotransferase [Enzymatic activity/volume] in Serum or Plasma 2024-01-18 21:13:35 18 U/L F 0.0-33.0 Alanine aminotransferase [Enzymatic activity/volume] in Serum or Plasma 2024-01-18 21:13:35 9 U/L F 10.0-49.0 Aspartate aminotransferase [Enzymatic activity/volume] in Serum or Plasma 2024-01-18 21:13:35 18 U/L F 0.0-33.0 Alanine aminotransferase [Enzymatic activity/volume] in Serum or Plasma 2024-01-18 21:13:35 9 U/L F 10.0-49.0 Aluminum [Mass/volume] in Serum or Plasma 2024-01-18 18:56:16 17 ug/L F 0.0-9.0 Aluminum [Mass/volume] in Serum or Plasma 2024-01-18 18:56:16 17 ug/L F 0.0-9.0 Alanine aminotransferase [Enzymatic activity/volume] in Serum or Plasma Alanine aminotransferase [Enzymatic activity/volume] in Serum or Plasma InfectionVaccination Description Draw Date Result/Unit Status Ref Range Result Comments Basophils/100 leukocytes in Blood by Automated count 2025-07-03 15:18:16 0.7 % F Neutrophils/100 leukocytes in Blood by Automated count 2025-07-03 15:18:16 71 % F Monocytes/100 leukocytes in Blood by Automated count 2025-07-03 15:18:16 6.6 % F Lymphocytes/100 leukocytes in Blood by Automated count 2025-07-03 15:18:16 17.4 % F Eosinophils/100 leukocytes in Blood by Automated count 2025-07-03 15:18:16 4.2 % F Leukocytes [#/volume] in Blood by Automated count 2025-07-03 15:18:16 4.5 x 10^3 cells/uL F 4.0-11.0 Neutrophils [#/volume] in Blood by Automated count 2025-07-03 15:18:16 3216 Cells/uL F 2000.0-8800.0 Lymphocytes [#/volume] in Blood by Automated count 2025-07-03 15:18:16 788 Cells/uL F 620.0-3660.0 Monocytes [#/volume] in Blood by Automated count 2025-07-03 15:18:16 299 Cells/uL F 0.0-1100.0 Basophils [#/volume] in Blood by Automated count 2025-07-03 15:18:16 32 Cells/uL F 0.0-400.0 Eosinophils [#/volume] in Blood by Automated count 2025-07-03 15:18:16 190 Cells/uL F 0.0-700.0 Basophils/100 leukocytes in Blood by Automated count 2025-05-31 03:53:13 0.2 % F Neutrophils/100 leukocytes in Blood by Automated count 2025-05-31 03:53:13 79.9 % F Lymphocytes/100 leukocytes in Blood by Automated count 2025-05-31 03:53:13 10.8 % F Monocytes/100 leukocytes in Blood by Automated count 2025-05-31 03:53:13 6.9 % F Eosinophils/100 leukocytes in Blood by Automated count 2025-05-31 03:53:13 2.1 % F Leukocytes [#/volume] in Blood by Automated count 2025-05-31 03:53:13 6.4 x 10^3 cells/uL F 4.0-11.0 Lymphocytes [#/volume] in Blood by Automated count 2025-05-31 03:53:13 687 Cells/uL F 620.0-3660.0 Neutrophils [#/volume] in Blood by Automated count 2025-05-31 03:53:13 5082 Cells/uL F 2000.0-8800.0 Monocytes [#/volume] in Blood by Automated count 2025-05-31 03:53:13 439 Cells/uL F 0.0-1100.0 Eosinophils [#/volume] in Blood by Automated count 2025-05-31 03:53:13 134 Cells/uL F 0.0-700.0 Basophils [#/volume] in Blood by Automated count 2025-05-31 03:53:13 13 Cells/uL F 0.0-400.0 Basophils/100 leukocytes in Blood by Automated count 2025-05-31 03:53:13 0.2 % F Lymphocytes/100 leukocytes in Blood by Automated count 2025-05-31 03:53:13 10.8 % F Neutrophils/100 leukocytes in Blood by Automated count 2025-05-31 03:53:13 79.9 % F Monocytes/100 leukocytes in Blood by Automated count 2025-05-31 03:53:13 6.9 % F Eosinophils/100 leukocytes in Blood by Automated count 2025-05-31 03:53:13 2.1 % F Leukocytes [#/volume] in Blood by Automated count 2025-05-31 03:53:13 6.4 x 10^3 cells/uL F 4.0-11.0 Neutrophils [#/volume] in Blood by Automated count 2025-05-31 03:53:13 5082 Cells/uL F 2000.0-8800.0 Lymphocytes [#/volume] in Blood by Automated count 2025-05-31 03:53:13 687 Cells/uL F 620.0-3660.0 Monocytes [#/volume] in Blood by Automated count 2025-05-31 03:53:13 439 Cells/uL F 0.0-1100.0 Eosinophils [#/volume] in Blood by Automated count 2025-05-31 03:53:13 134 Cells/uL F 0.0-700.0 Basophils [#/volume] in Blood by Automated count 2025-05-31 03:53:13 13 Cells/uL F 0.0-400.0 Basophils/100 leukocytes in Blood by Automated count 2025-05-10 07:10:10 0.6 % F Neutrophils/100 leukocytes in Blood by Automated count 2025-05-10 07:10:10 73.7 % F Lymphocytes/100 leukocytes in Blood by Automated count 2025-05-10 07:10:10 16.6 % F Monocytes/100 leukocytes in Blood by Automated count 2025-05-10 07:10:10 7 % F Eosinophils/100 leukocytes in Blood by Automated count 2025-05-10 07:10:10 2.1 % F Leukocytes [#/volume] in Blood by Automated count 2025-05-10 07:10:10 4.8 x 10^3 cells/uL F 4.0-11.0 Neutrophils [#/volume] in Blood by Automated count 2025-05-10 07:10:10 3501 Cells/uL F 2000.0-8800.0 Lymphocytes [#/volume] in Blood by Automated count 2025-05-10 07:10:10 788 Cells/uL F 620.0-3660.0 Basophils [#/volume] in Blood by Automated count 2025-05-10 07:10:10 28 Cells/uL F 0.0-400.0 Monocytes [#/volume] in Blood by Automated count 2025-05-10 07:10:10 332 Cells/uL F 0.0-1100.0 Eosinophils [#/volume] in Blood by Automated count 2025-05-10 07:10:10 100 Cells/uL F 0.0-700.0 Basophils/100 leukocytes in Blood by Automated count 2025-05-10 07:10:10 0.6 % F Neutrophils/100 leukocytes in Blood by Automated count 2025-05-10 07:10:10 73.7 % F Lymphocytes/100 leukocytes in Blood by Automated count 2025-05-10 07:10:10 16.6 % F Monocytes/100 leukocytes in Blood by Automated count 2025-05-10 07:10:10 7 % F Eosinophils/100 leukocytes in Blood by Automated count 2025-05-10 07:10:10 2.1 % F Leukocytes [#/volume] in Blood by Automated count 2025-05-10 07:10:10 4.8 x 10^3 cells/uL F 4.0-11.0 Neutrophils [#/volume] in Blood by Automated count 2025-05-10 07:10:10 3501 Cells/uL F 2000.0-8800.0 Lymphocytes [#/volume] in Blood by Automated count 2025-05-10 07:10:10 788 Cells/uL F 620.0-3660.0 Monocytes [#/volume] in Blood by Automated count 2025-05-10 07:10:10 332 Cells/uL F 0.0-1100.0 Eosinophils [#/volume] in Blood by Automated count 2025-05-10 07:10:10 100 Cells/uL F 0.0-700.0 Basophils [#/volume] in Blood by Automated count 2025-05-10 07:10:10 28 Cells/uL F 0.0-400.0 Basophils/100 leukocytes in Blood by Automated count 2025-05-02 13:47:14 0.9 % F Lymphocytes/100 leukocytes in Blood by Automated count 2025-05-02 13:47:14 17.4 % F Monocytes/100 leukocytes in Blood by Automated count 2025-05-02 13:47:14 6.1 % F Eosinophils/100 leukocytes in Blood by Automated count 2025-05-02 13:47:14 1.7 % F Neutrophils [#/volume] in Blood by Automated count 2025-05-02 13:47:14 3725 Cells/uL F 2000.0-8800.0 Monocytes [#/volume] in Blood by Automated count 2025-05-02 13:47:14 307 Cells/uL F 0.0-1100.0 Lymphocytes [#/volume] in Blood by Automated count 2025-05-02 13:47:14 877 Cells/uL F 620.0-3660.0 Eosinophils [#/volume] in Blood by Automated count 2025-05-02 13:47:14 86 Cells/uL F 0.0-700.0 Basophils/100 leukocytes in Blood by Automated count 2025-05-02 13:47:14 0.9 % F Lymphocytes/100 leukocytes in Blood by Automated count 2025-05-02 13:47:14 17.4 % F Monocytes/100 leukocytes in Blood by Automated count 2025-05-02 13:47:14 6.1 % F Eosinophils/100 leukocytes in Blood by Automated count 2025-05-02 13:47:14 1.7 % F Neutrophils [#/volume] in Blood by Automated count 2025-05-02 13:47:14 3725 Cells/uL F 2000.0-8800.0 Lymphocytes [#/volume] in Blood by Automated count 2025-05-02 13:47:14 877 Cells/uL F 620.0-3660.0 Monocytes [#/volume] in Blood by Automated count 2025-05-02 13:47:14 307 Cells/uL F 0.0-1100.0 Eosinophils [#/volume] in Blood by Automated count 2025-05-02 13:47:14 86 Cells/uL F 0.0-700.0 Basophils/100 leukocytes in Blood by Automated count 2025-05-02 13:47:14 0.9 % F Lymphocytes/100 leukocytes in Blood by Automated count 2025-05-02 13:47:14 17.4 % F Monocytes/100 leukocytes in Blood by Automated count 2025-05-02 13:47:14 6.1 % F Eosinophils/100 leukocytes in Blood by Automated count 2025-05-02 13:47:14 1.7 % F Neutrophils [#/volume] in Blood by Automated count 2025-05-02 13:47:14 3725 Cells/uL F 2000.0-8800.0 Monocytes [#/volume] in Blood by Automated count 2025-05-02 13:47:14 307 Cells/uL F 0.0-1100.0 Lymphocytes [#/volume] in Blood by Automated count 2025-05-02 13:47:14 877 Cells/uL F 620.0-3660.0 Eosinophils [#/volume] in Blood by Automated count 2025-05-02 13:47:14 86 Cells/uL F 0.0-700.0 Neutrophils/100 leukocytes in Blood by Automated count 2025-05-02 13:47:13 73.9 % F Leukocytes [#/volume] in Blood by Automated count 2025-05-02 13:47:13 5 x 10^3 cells/uL F 4.0-11.0 Basophils [#/volume] in Blood by Automated count 2025-05-02 13:47:13 45 Cells/uL F 0.0-400.0 Neutrophils/100 leukocytes in Blood by Automated count 2025-05-02 13:47:13 73.9 % F Leukocytes [#/volume] in Blood by Automated count 2025-05-02 13:47:13 5 x 10^3 cells/uL F 4.0-11.0 Basophils [#/volume] in Blood by Automated count 2025-05-02 13:47:13 45 Cells/uL F 0.0-400.0 Neutrophils/100 leukocytes in Blood by Automated count 2025-05-02 13:47:13 73.9 % F Leukocytes [#/volume] in Blood by Automated count 2025-05-02 13:47:13 5 x 10^3 cells/uL F 4.0-11.0 Basophils [#/volume] in Blood by Automated count 2025-05-02 13:47:13 45 Cells/uL F 0.0-400.0 Lymphocytes/100 leukocytes in Blood by Automated count 2025-03-01 01:26:47 22.4 % F Monocytes/100 leukocytes in Blood by Automated count 2025-03-01 01:26:47 11 % F Lymphocytes [#/volume] in Blood by Automated count 2025-03-01 01:26:47 1008 Cells/uL F 620.0-3660.0 Basophils [#/volume] in Blood by Automated count 2025-03-01 01:26:47 36 Cells/uL F 0.0-400.0 Leukocytes [#/volume] in Blood by Automated count 2025-03-01 01:26:47 4.5 x 10^3 cells/uL F 4.0-11.0 Neutrophils/100 leukocytes in Blood by Automated count 2025-03-01 01:26:47 62.1 % F Monocytes [#/volume] in Blood by Automated count 2025-03-01 01:26:47 495 Cells/uL F 0.0-1100.0 Basophils/100 leukocytes in Blood by Automated count 2025-03-01 01:26:47 0.8 % F Neutrophils [#/volume] in Blood by Automated count 2025-03-01 01:26:47 2794 Cells/uL F 2000.0-8800.0 Eosinophils/100 leukocytes in Blood by Automated count 2025-03-01 01:26:47 3.7 % F Eosinophils [#/volume] in Blood by Automated count 2025-03-01 01:26:47 166 Cells/uL F 0.0-700.0 Lymphocytes/100 leukocytes in Blood by Automated count 2025-03-01 01:26:47 22.4 % F Neutrophils/100 leukocytes in Blood by Automated count 2025-03-01 01:26:47 62.1 % F Eosinophils/100 leukocytes in Blood by Automated count 2025-03-01 01:26:47 3.7 % F Monocytes/100 leukocytes in Blood by Automated count 2025-03-01 01:26:47 11 % F Basophils/100 leukocytes in Blood by Automated count 2025-03-01 01:26:47 0.8 % F Monocytes [#/volume] in Blood by Automated count 2025-03-01 01:26:47 495 Cells/uL F 0.0-1100.0 Basophils [#/volume] in Blood by Automated count 2025-03-01 01:26:47 36 Cells/uL F 0.0-400.0 Eosinophils [#/volume] in Blood by Automated count 2025-03-01 01:26:47 166 Cells/uL F 0.0-700.0 Neutrophils [#/volume] in Blood by Automated count 2025-03-01 01:26:47 2794 Cells/uL F 2000.0-8800.0 Leukocytes [#/volume] in Blood by Automated count 2025-03-01 01:26:47 4.5 x 10^3 cells/uL F 4.0-11.0 Lymphocytes [#/volume] in Blood by Automated count 2025-03-01 01:26:47 1008 Cells/uL F 620.0-3660.0 Monocytes/100 leukocytes in Blood by Automated count 2025-01-22 22:38:05 8 % F Neutrophils/100 leukocytes in Blood by Automated count 2025-01-22 22:38:05 69.8 % F Basophils/100 leukocytes in Blood by Automated count 2025-01-22 22:38:05 0.7 % F Eosinophils/100 leukocytes in Blood by Automated count 2025-01-22 22:38:05 3.5 % F Lymphocytes/100 leukocytes in Blood by Automated count 2025-01-22 22:38:05 18 % F Monocytes [#/volume] in Blood by Automated count 2025-01-22 22:38:05 321 Cells/uL F 0.0-1100.0 Basophils [#/volume] in Blood by Automated count 2025-01-22 22:38:05 28 Cells/uL F 0.0-400.0 Eosinophils [#/volume] in Blood by Automated count 2025-01-22 22:38:05 140 Cells/uL F 0.0-700.0 Neutrophils [#/volume] in Blood by Automated count 2025-01-22 22:38:05 2799 Cells/uL F 2000.0-8800.0 Leukocytes [#/volume] in Blood by Automated count 2025-01-22 22:38:05 4 x 10^3 cells/uL F 4.0-11.0 Lymphocytes [#/volume] in Blood by Automated count 2025-01-22 22:38:05 722 Cells/uL F 620.0-3660.0 Monocytes/100 leukocytes in Blood by Automated count 2025-01-22 22:38:05 8 % F Lymphocytes/100 leukocytes in Blood by Automated count 2025-01-22 22:38:05 18 % F Neutrophils/100 leukocytes in Blood by Automated count 2025-01-22 22:38:05 69.8 % F Basophils/100 leukocytes in Blood by Automated count 2025-01-22 22:38:05 0.7 % F Eosinophils/100 leukocytes in Blood by Automated count 2025-01-22 22:38:05 3.5 % F Monocytes [#/volume] in Blood by Automated count 2025-01-22 22:38:05 321 Cells/uL F 0.0-1100.0 Basophils [#/volume] in Blood by Automated count 2025-01-22 22:38:05 28 Cells/uL F 0.0-400.0 Eosinophils [#/volume] in Blood by Automated count 2025-01-22 22:38:05 140 Cells/uL F 0.0-700.0 Neutrophils [#/volume] in Blood by Automated count 2025-01-22 22:38:05 2799 Cells/uL F 2000.0-8800.0 Leukocytes [#/volume] in Blood by Automated count 2025-01-22 22:38:05 4 x 10^3 cells/uL F 4.0-11.0 Lymphocytes [#/volume] in Blood by Automated count 2025-01-22 22:38:05 722 Cells/uL F 620.0-3660.0 Monocytes/100 leukocytes in Blood by Automated count 2025-01-22 22:38:05 8 % F Eosinophils/100 leukocytes in Blood by Automated count 2025-01-22 22:38:05 3.5 % F Basophils/100 leukocytes in Blood by Automated count 2025-01-22 22:38:05 0.7 % F Lymphocytes/100 leukocytes in Blood by Automated count 2025-01-22 22:38:05 18 % F Neutrophils/100 leukocytes in Blood by Automated count 2025-01-22 22:38:05 69.8 % F Monocytes [#/volume] in Blood by Automated count 2025-01-22 22:38:05 321 Cells/uL F 0.0-1100.0 Basophils [#/volume] in Blood by Automated count 2025-01-22 22:38:05 28 Cells/uL F 0.0-400.0 Eosinophils [#/volume] in Blood by Automated count 2025-01-22 22:38:05 140 Cells/uL F 0.0-700.0 Neutrophils [#/volume] in Blood by Automated count 2025-01-22 22:38:05 2799 Cells/uL F 2000.0-8800.0 Leukocytes [#/volume] in Blood by Automated count 2025-01-22 22:38:05 4 x 10^3 cells/uL F 4.0-11.0 Lymphocytes [#/volume] in Blood by Automated count 2025-01-22 22:38:05 722 Cells/uL F 620.0-3660.0 Basophils/100 leukocytes in Blood by Automated count 2024-11-30 06:57:10 1.3 % F Lymphocytes/100 leukocytes in Blood by Automated count 2024-11-30 06:57:10 30.9 % F Monocytes/100 leukocytes in Blood by Automated count 2024-11-30 06:57:10 8.6 % F Eosinophils/100 leukocytes in Blood by Automated count 2024-11-30 06:57:10 2.7 % F Neutrophils/100 leukocytes in Blood by Automated count 2024-11-30 06:57:10 56.5 % F Monocytes [#/volume] in Blood by Automated count 2024-11-30 06:57:10 259 Cells/uL F 0.0-1100.0 Basophils [#/volume] in Blood by Automated count 2024-11-30 06:57:10 39 Cells/uL F 0.0-400.0 Eosinophils [#/volume] in Blood by Automated count 2024-11-30 06:57:10 81 Cells/uL F 0.0-700.0 Neutrophils [#/volume] in Blood by Automated count 2024-11-30 06:57:10 1701 Cells/uL F 2000.0-8800.0 Leukocytes [#/volume] in Blood by Automated count 2024-11-30 06:57:10 3 x 10^3 cells/uL F 4.0-11.0 Lymphocytes [#/volume] in Blood by Automated count 2024-11-30 06:57:10 930 Cells/uL F 620.0-3660.0 Basophils/100 leukocytes in Blood by Automated count 2024-11-30 06:57:10 1.3 % F Monocytes/100 leukocytes in Blood by Automated count 2024-11-30 06:57:10 8.6 % F Neutrophils/100 leukocytes in Blood by Automated count 2024-11-30 06:57:10 56.5 % F Lymphocytes/100 leukocytes in Blood by Automated count 2024-11-30 06:57:10 30.9 % F Eosinophils/100 leukocytes in Blood by Automated count 2024-11-30 06:57:10 2.7 % F Monocytes [#/volume] in Blood by Automated count 2024-11-30 06:57:10 259 Cells/uL F 0.0-1100.0 Basophils [#/volume] in Blood by Automated count 2024-11-30 06:57:10 39 Cells/uL F 0.0-400.0 Eosinophils [#/volume] in Blood by Automated count 2024-11-30 06:57:10 81 Cells/uL F 0.0-700.0 Neutrophils [#/volume] in Blood by Automated count 2024-11-30 06:57:10 1701 Cells/uL F 2000.0-8800.0 Leukocytes [#/volume] in Blood by Automated count 2024-11-30 06:57:10 3 x 10^3 cells/uL F 4.0-11.0 Lymphocytes [#/volume] in Blood by Automated count 2024-11-30 06:57:10 930 Cells/uL F 620.0-3660.0 Basophils/100 leukocytes in Blood by Automated count 2024-11-01 17:45:28 0.5 % F Monocytes/100 leukocytes in Blood by Automated count 2024-11-01 17:45:28 9 % F Eosinophils/100 leukocytes in Blood by Automated count 2024-11-01 17:45:28 2.5 % F Monocytes [#/volume] in Blood by Automated count 2024-11-01 17:45:28 357 Cells/uL F 0.0-1100.0 Eosinophils [#/volume] in Blood by Automated count 2024-11-01 17:45:28 99 Cells/uL F 0.0-700.0 Neutrophils [#/volume] in Blood by Automated count 2024-11-01 17:45:28 2477 Cells/uL F 2000.0-8800.0 Leukocytes [#/volume] in Blood by Automated count 2024-11-01 17:45:28 4 x 10^3 cells/uL F 4.0-11.0 Basophils/100 leukocytes in Blood by Automated count 2024-11-01 17:45:28 0.5 % F Eosinophils/100 leukocytes in Blood by Automated count 2024-11-01 17:45:28 2.5 % F Monocytes/100 leukocytes in Blood by Automated count 2024-11-01 17:45:28 9 % F Monocytes [#/volume] in Blood by Automated count 2024-11-01 17:45:28 357 Cells/uL F 0.0-1100.0 Eosinophils [#/volume] in Blood by Automated count 2024-11-01 17:45:28 99 Cells/uL F 0.0-700.0 Neutrophils [#/volume] in Blood by Automated count 2024-11-01 17:45:28 2477 Cells/uL F 2000.0-8800.0 Leukocytes [#/volume] in Blood by Automated count 2024-11-01 17:45:28 4 x 10^3 cells/uL F 4.0-11.0 Basophils/100 leukocytes in Blood by Automated count 2024-11-01 17:45:28 0.5 % F Eosinophils/100 leukocytes in Blood by Automated count 2024-11-01 17:45:28 2.5 % F Monocytes/100 leukocytes in Blood by Automated count 2024-11-01 17:45:28 9 % F Monocytes [#/volume] in Blood by Automated count 2024-11-01 17:45:28 357 Cells/uL F 0.0-1100.0 Eosinophils [#/volume] in Blood by Automated count 2024-11-01 17:45:28 99 Cells/uL F 0.0-700.0 Neutrophils [#/volume] in Blood by Automated count 2024-11-01 17:45:28 2477 Cells/uL F 2000.0-8800.0 Leukocytes [#/volume] in Blood by Automated count 2024-11-01 17:45:28 4 x 10^3 cells/uL F 4.0-11.0 Lymphocytes/100 leukocytes in Blood by Automated count 2024-11-01 17:45:26 25.6 % F Neutrophils/100 leukocytes in Blood by Automated count 2024-11-01 17:45:26 62.4 % F Basophils [#/volume] in Blood by Automated count 2024-11-01 17:45:26 20 Cells/uL F 0.0-400.0 Lymphocytes [#/volume] in Blood by Automated count 2024-11-01 17:45:26 1016 Cells/uL F 620.0-3660.0 Lymphocytes/100 leukocytes in Blood by Automated count 2024-11-01 17:45:26 25.6 % F Neutrophils/100 leukocytes in Blood by Automated count 2024-11-01 17:45:26 62.4 % F Basophils [#/volume] in Blood by Automated count 2024-11-01 17:45:26 20 Cells/uL F 0.0-400.0 Lymphocytes [#/volume] in Blood by Automated count 2024-11-01 17:45:26 1016 Cells/uL F 620.0-3660.0 Lymphocytes/100 leukocytes in Blood by Automated count 2024-11-01 17:45:26 25.6 % F Neutrophils/100 leukocytes in Blood by Automated count 2024-11-01 17:45:26 62.4 % F Basophils [#/volume] in Blood by Automated count 2024-11-01 17:45:26 20 Cells/uL F 0.0-400.0 Lymphocytes [#/volume] in Blood by Automated count 2024-11-01 17:45:26 1016 Cells/uL F 620.0-3660.0 Basophils [#/volume] in Blood by Automated count 2024-10-05 23:07:26 24 Cells/uL F 0.0-400.0 Basophils [#/volume] in Blood by Automated count 2024-10-05 23:07:26 24 Cells/uL F 0.0-400.0 Neutrophils/100 leukocytes in Blood by Automated count 2024-10-05 23:07:23 64.4 % F Lymphocytes/100 leukocytes in Blood by Automated count 2024-10-05 23:07:23 25 % F Eosinophils/100 leukocytes in Blood by Automated count 2024-10-05 23:07:23 2 % F Basophils/100 leukocytes in Blood by Automated count 2024-10-05 23:07:23 0.8 % F Monocytes/100 leukocytes in Blood by Automated count 2024-10-05 23:07:23 7.8 % F Monocytes [#/volume] in Blood by Automated count 2024-10-05 23:07:23 232 Cells/uL F 0.0-1100.0 Eosinophils [#/volume] in Blood by Automated count 2024-10-05 23:07:23 59 Cells/uL F 0.0-700.0 Neutrophils [#/volume] in Blood by Automated count 2024-10-05 23:07:23 1913 Cells/uL F 2000.0-8800.0 Leukocytes [#/volume] in Blood by Automated count 2024-10-05 23:07:23 3 x 10^3 cells/uL F 4.0-11.0 Lymphocytes [#/volume] in Blood by Automated count 2024-10-05 23:07:23 742 Cells/uL F 620.0-3660.0 Neutrophils/100 leukocytes in Blood by Automated count 2024-10-05 23:07:23 64.4 % F Monocytes/100 leukocytes in Blood by Automated count 2024-10-05 23:07:23 7.8 % F Basophils/100 leukocytes in Blood by Automated count 2024-10-05 23:07:23 0.8 % F Lymphocytes/100 leukocytes in Blood by Automated count 2024-10-05 23:07:23 25 % F Monocytes [#/volume] in Blood by Automated count 2024-10-05 23:07:23 232 Cells/uL F 0.0-1100.0 Eosinophils/100 leukocytes in Blood by Automated count 2024-10-05 23:07:23 2 % F Eosinophils [#/volume] in Blood by Automated count 2024-10-05 23:07:23 59 Cells/uL F 0.0-700.0 Neutrophils [#/volume] in Blood by Automated count 2024-10-05 23:07:23 1913 Cells/uL F 2000.0-8800.0 Leukocytes [#/volume] in Blood by Automated count 2024-10-05 23:07:23 3 x 10^3 cells/uL F 4.0-11.0 Lymphocytes [#/volume] in Blood by Automated count 2024-10-05 23:07:23 742 Cells/uL F 620.0-3660.0 Eosinophils/100 leukocytes in Blood by Automated count 2024-09-01 19:39:09 4 % F Lymphocytes/100 leukocytes in Blood by Automated count 2024-09-01 19:39:09 19.7 % F Basophils/100 leukocytes in Blood by Automated count 2024-09-01 19:39:09 1 % F Neutrophils/100 leukocytes in Blood by Automated count 2024-09-01 19:39:09 64.7 % F Monocytes/100 leukocytes in Blood by Automated count 2024-09-01 19:39:09 10.5 % F Monocytes [#/volume] in Blood by Automated count 2024-09-01 19:39:09 385 Cells/uL F 0.0-1100.0 Basophils [#/volume] in Blood by Automated count 2024-09-01 19:39:09 37 Cells/uL F 0.0-400.0 Eosinophils [#/volume] in Blood by Automated count 2024-09-01 19:39:09 147 Cells/uL F 0.0-700.0 Neutrophils [#/volume] in Blood by Automated count 2024-09-01 19:39:09 2374 Cells/uL F 2000.0-8800.0 Leukocytes [#/volume] in Blood by Automated count 2024-09-01 19:39:09 3.7 x 10^3 cells/uL F 4.0-11.0 Lymphocytes [#/volume] in Blood by Automated count 2024-09-01 19:39:09 723 Cells/uL F 620.0-3660.0 Lymphocytes/100 leukocytes in Blood by Automated count 2024-09-01 19:39:09 19.7 % F Neutrophils/100 leukocytes in Blood by Automated count 2024-09-01 19:39:09 64.7 % F Basophils/100 leukocytes in Blood by Automated count 2024-09-01 19:39:09 1 % F Eosinophils/100 leukocytes in Blood by Automated count 2024-09-01 19:39:09 4 % F Monocytes/100 leukocytes in Blood by Automated count 2024-09-01 19:39:09 10.5 % F Monocytes [#/volume] in Blood by Automated count 2024-09-01 19:39:09 385 Cells/uL F 0.0-1100.0 Basophils [#/volume] in Blood by Automated count 2024-09-01 19:39:09 37 Cells/uL F 0.0-400.0 Eosinophils [#/volume] in Blood by Automated count 2024-09-01 19:39:09 147 Cells/uL F 0.0-700.0 Neutrophils [#/volume] in Blood by Automated count 2024-09-01 19:39:09 2374 Cells/uL F 2000.0-8800.0 Leukocytes [#/volume] in Blood by Automated count 2024-09-01 19:39:09 3.7 x 10^3 cells/uL F 4.0-11.0 Lymphocytes [#/volume] in Blood by Automated count 2024-09-01 19:39:09 723 Cells/uL F 620.0-3660.0 Neutrophils/100 leukocytes in Blood by Automated count 2024-08-11 20:28:12 53.9 % F Basophils/100 leukocytes in Blood by Automated count 2024-08-11 20:28:12 3.3 % F Lymphocytes/100 leukocytes in Blood by Automated count 2024-08-11 20:28:12 26.7 % F Eosinophils/100 leukocytes in Blood by Automated count 2024-08-11 20:28:12 6.1 % F Monocytes/100 leukocytes in Blood by Automated count 2024-08-11 20:28:12 10.1 % F Monocytes [#/volume] in Blood by Automated count 2024-08-11 20:28:12 217 Cells/uL F 0.0-1100.0 Basophils [#/volume] in Blood by Automated count 2024-08-11 20:28:12 71 Cells/uL F 0.0-400.0 Eosinophils [#/volume] in Blood by Automated count 2024-08-11 20:28:12 131 Cells/uL F 0.0-700.0 Neutrophils [#/volume] in Blood by Automated count 2024-08-11 20:28:12 1159 Cells/uL F 2000.0-8800.0 Leukocytes [#/volume] in Blood by Automated count 2024-08-11 20:28:12 2.2 x 10^3 cells/uL F 4.0-11.0 Lymphocytes [#/volume] in Blood by Automated count 2024-08-11 20:28:12 574 Cells/uL F 620.0-3660.0 Lymphocytes/100 leukocytes in Blood by Automated count 2024-08-07 13:43:09 24.8 % F Eosinophils/100 leukocytes in Blood by Automated count 2024-08-07 13:43:09 4.1 % F Basophils/100 leukocytes in Blood by Automated count 2024-08-07 13:43:09 0.6 % F Neutrophils/100 leukocytes in Blood by Automated count 2024-08-07 13:43:09 63.6 % F Monocytes/100 leukocytes in Blood by Automated count 2024-08-07 13:43:09 6.9 % F Monocytes [#/volume] in Blood by Automated count 2024-08-07 13:43:09 274 Cells/uL F 0.0-1100.0 Basophils [#/volume] in Blood by Automated count 2024-08-07 13:43:09 24 Cells/uL F 0.0-400.0 Eosinophils [#/volume] in Blood by Automated count 2024-08-07 13:43:09 163 Cells/uL F 0.0-700.0 Neutrophils [#/volume] in Blood by Automated count 2024-08-07 13:43:09 2525 Cells/uL F 2000.0-8800.0 Leukocytes [#/volume] in Blood by Automated count 2024-08-07 13:43:09 4 x 10^3 cells/uL F 4.0-11.0 Lymphocytes [#/volume] in Blood by Automated count 2024-08-07 13:43:09 985 Cells/uL F 620.0-3660.0 Monocytes/100 leukocytes in Blood by Automated count 2024-07-05 23:39:19 9 % F Lymphocytes/100 leukocytes in Blood by Automated count 2024-07-05 23:39:19 17.1 % F Eosinophils/100 leukocytes in Blood by Automated count 2024-07-05 23:39:19 2.2 % F Neutrophils/100 leukocytes in Blood by Automated count 2024-07-05 23:39:19 70.6 % F Monocytes [#/volume] in Blood by Automated count 2024-07-05 23:39:19 454 Cell/uL F 0.0-1100.0 Basophils/100 leukocytes in Blood by Automated count 2024-07-05 23:39:19 1.2 % F Basophils [#/volume] in Blood by Automated count 2024-07-05 23:39:19 60 Cell/uL F 0.0-400.0 Eosinophils [#/volume] in Blood by Automated count 2024-07-05 23:39:19 111 Cell/uL F 0.0-700.0 Neutrophils [#/volume] in Blood by Automated count 2024-07-05 23:39:19 3558 Cell/uL F 2000.0-8800.0 Leukocytes [#/volume] in Blood by Automated count 2024-07-05 23:39:19 5 x 10^3 cells/uL F 4.0-11.0 Lymphocytes [#/volume] in Blood by Automated count 2024-07-05 23:39:19 862 Cell/uL F 620.0-3660.0 Lymphocytes/100 leukocytes in Blood by Automated count 2024-07-05 23:39:19 17.1 % F Monocytes/100 leukocytes in Blood by Automated count 2024-07-05 23:39:19 9 % F Neutrophils/100 leukocytes in Blood by Automated count 2024-07-05 23:39:19 70.6 % F Eosinophils/100 leukocytes in Blood by Automated count 2024-07-05 23:39:19 2.2 % F Monocytes [#/volume] in Blood by Automated count 2024-07-05 23:39:19 454 Cell/uL F 0.0-1100.0 Basophils/100 leukocytes in Blood by Automated count 2024-07-05 23:39:19 1.2 % F Basophils [#/volume] in Blood by Automated count 2024-07-05 23:39:19 60 Cell/uL F 0.0-400.0 Eosinophils [#/volume] in Blood by Automated count 2024-07-05 23:39:19 111 Cell/uL F 0.0-700.0 Neutrophils [#/volume] in Blood by Automated count 2024-07-05 23:39:19 3558 Cell/uL F 2000.0-8800.0 Leukocytes [#/volume] in Blood by Automated count 2024-07-05 23:39:19 5 x 10^3 cells/uL F 4.0-11.0 Lymphocytes [#/volume] in Blood by Automated count 2024-07-05 23:39:19 862 Cell/uL F 620.0-3660.0 Monocytes/100 leukocytes in Blood by Automated count 2024-06-08 19:55:16 6.5 % F Lymphocytes/100 leukocytes in Blood by Automated count 2024-06-08 19:55:16 18.4 % F Basophils/100 leukocytes in Blood by Automated count 2024-06-08 19:55:16 0.4 % F Neutrophils/100 leukocytes in Blood by Automated count 2024-06-08 19:55:16 74.2 % F Monocytes [#/volume] in Blood by Automated count 2024-06-08 19:55:16 241 Cell/uL F 0.0-1100.0 Eosinophils/100 leukocytes in Blood by Automated count 2024-06-08 19:55:16 0.5 % F Basophils [#/volume] in Blood by Automated count 2024-06-08 19:55:16 15 Cell/uL F 0.0-400.0 Eosinophils [#/volume] in Blood by Automated count 2024-06-08 19:55:16 19 Cell/uL F 0.0-700.0 Neutrophils [#/volume] in Blood by Automated count 2024-06-08 19:55:16 2753 Cell/uL F 2000.0-8800.0 Leukocytes [#/volume] in Blood by Automated count 2024-06-08 19:55:16 3.7 x 10^3 cells/uL F 4.0-11.0 Lymphocytes [#/volume] in Blood by Automated count 2024-06-08 19:55:16 683 Cell/uL F 620.0-3660.0 Monocytes/100 leukocytes in Blood by Automated count 2024-06-08 19:55:16 6.5 % F Lymphocytes/100 leukocytes in Blood by Automated count 2024-06-08 19:55:16 18.4 % F Eosinophils/100 leukocytes in Blood by Automated count 2024-06-08 19:55:16 0.5 % F Neutrophils/100 leukocytes in Blood by Automated count 2024-06-08 19:55:16 74.2 % F Basophils/100 leukocytes in Blood by Automated count 2024-06-08 19:55:16 0.4 % F Basophils [#/volume] in Blood by Automated count 2024-06-08 19:55:16 15 Cell/uL F 0.0-400.0 Monocytes [#/volume] in Blood by Automated count 2024-06-08 19:55:16 241 Cell/uL F 0.0-1100.0 Eosinophils [#/volume] in Blood by Automated count 2024-06-08 19:55:16 19 Cell/uL F 0.0-700.0 Neutrophils [#/volume] in Blood by Automated count 2024-06-08 19:55:16 2753 Cell/uL F 2000.0-8800.0 Leukocytes [#/volume] in Blood by Automated count 2024-06-08 19:55:16 3.7 x 10^3 cells/uL F 4.0-11.0 Lymphocytes [#/volume] in Blood by Automated count 2024-06-08 19:55:16 683 Cell/uL F 620.0-3660.0 Monocytes/100 leukocytes in Blood by Automated count 2024-06-08 19:55:16 6.5 % F Lymphocytes/100 leukocytes in Blood by Automated count 2024-06-08 19:55:16 18.4 % F Neutrophils/100 leukocytes in Blood by Automated count 2024-06-08 19:55:16 74.2 % F Eosinophils/100 leukocytes in Blood by Automated count 2024-06-08 19:55:16 0.5 % F Basophils/100 leukocytes in Blood by Automated count 2024-06-08 19:55:16 0.4 % F Monocytes [#/volume] in Blood by Automated count 2024-06-08 19:55:16 241 Cell/uL F 0.0-1100.0 Basophils [#/volume] in Blood by Automated count 2024-06-08 19:55:16 15 Cell/uL F 0.0-400.0 Eosinophils [#/volume] in Blood by Automated count 2024-06-08 19:55:16 19 Cell/uL F 0.0-700.0 Neutrophils [#/volume] in Blood by Automated count 2024-06-08 19:55:16 2753 Cell/uL F 2000.0-8800.0 Leukocytes [#/volume] in Blood by Automated count 2024-06-08 19:55:16 3.7 x 10^3 cells/uL F 4.0-11.0 Lymphocytes [#/volume] in Blood by Automated count 2024-06-08 19:55:16 683 Cell/uL F 620.0-3660.0 Monocytes/100 leukocytes in Blood by Automated count 2024-05-03 03:34:36 9.8 % F Basophils/100 leukocytes in Blood by Automated count 2024-05-03 03:34:36 1.2 % F Lymphocytes/100 leukocytes in Blood by Automated count 2024-05-03 03:34:36 26.4 % F Eosinophils/100 leukocytes in Blood by Automated count 2024-05-03 03:34:36 3.2 % F Neutrophils/100 leukocytes in Blood by Automated count 2024-05-03 03:34:36 59.4 % F Monocytes [#/volume] in Blood by Automated count 2024-05-03 03:34:36 301 Cell/uL F 0.0-1100.0 Basophils [#/volume] in Blood by Automated count 2024-05-03 03:34:36 37 Cell/uL F 0.0-400.0 Eosinophils [#/volume] in Blood by Automated count 2024-05-03 03:34:36 98 Cell/uL F 0.0-700.0 Neutrophils [#/volume] in Blood by Automated count 2024-05-03 03:34:36 1824 Cell/uL F 2000.0-8800.0 Leukocytes [#/volume] in Blood by Automated count 2024-05-03 03:34:36 3.1 x 10^3 cells/uL F 4.0-11.0 Lymphocytes [#/volume] in Blood by Automated count 2024-05-03 03:34:36 810 Cell/uL F 620.0-3660.0 Monocytes/100 leukocytes in Blood by Automated count 2024-05-03 03:34:36 9.8 % F Lymphocytes/100 leukocytes in Blood by Automated count 2024-05-03 03:34:36 26.4 % F Basophils/100 leukocytes in Blood by Automated count 2024-05-03 03:34:36 1.2 % F Neutrophils/100 leukocytes in Blood by Automated count 2024-05-03 03:34:36 59.4 % F Monocytes [#/volume] in Blood by Automated count 2024-05-03 03:34:36 301 Cell/uL F 0.0-1100.0 Eosinophils/100 leukocytes in Blood by Automated count 2024-05-03 03:34:36 3.2 % F Basophils [#/volume] in Blood by Automated count 2024-05-03 03:34:36 37 Cell/uL F 0.0-400.0 Eosinophils [#/volume] in Blood by Automated count 2024-05-03 03:34:36 98 Cell/uL F 0.0-700.0 Neutrophils [#/volume] in Blood by Automated count 2024-05-03 03:34:36 1824 Cell/uL F 2000.0-8800.0 Leukocytes [#/volume] in Blood by Automated count 2024-05-03 03:34:36 3.1 x 10^3 cells/uL F 4.0-11.0 Lymphocytes [#/volume] in Blood by Automated count 2024-05-03 03:34:36 810 Cell/uL F 620.0-3660.0 Eosinophils/100 leukocytes in Blood by Automated count 2024-03-30 05:00:40 3.2 % F Neutrophils/100 leukocytes in Blood by Automated count 2024-03-30 05:00:40 61.1 % F Basophils/100 leukocytes in Blood by Automated count 2024-03-30 05:00:40 1.1 % F Monocytes/100 leukocytes in Blood by Automated count 2024-03-30 05:00:40 9.1 % F Lymphocytes/100 leukocytes in Blood by Automated count 2024-03-30 05:00:40 25.5 % F Monocytes [#/volume] in Blood by Automated count 2024-03-30 05:00:40 288 Cell/uL F 0.0-1100.0 Basophils [#/volume] in Blood by Automated count 2024-03-30 05:00:40 35 Cell/uL F 0.0-400.0 Eosinophils [#/volume] in Blood by Automated count 2024-03-30 05:00:40 101 Cell/uL F 0.0-700.0 Neutrophils [#/volume] in Blood by Automated count 2024-03-30 05:00:40 1937 Cell/uL F 2000.0-8800.0 Leukocytes [#/volume] in Blood by Automated count 2024-03-30 05:00:40 3.2 x 10^3 cells/uL F 4.0-11.0 Lymphocytes [#/volume] in Blood by Automated count 2024-03-30 05:00:40 808 Cell/uL F 620.0-3660.0 Neutrophils/100 leukocytes in Blood by Automated count 2024-03-30 05:00:40 61.1 % F Basophils/100 leukocytes in Blood by Automated count 2024-03-30 05:00:40 1.1 % F Eosinophils/100 leukocytes in Blood by Automated count 2024-03-30 05:00:40 3.2 % F Lymphocytes/100 leukocytes in Blood by Automated count 2024-03-30 05:00:40 25.5 % F Monocytes/100 leukocytes in Blood by Automated count 2024-03-30 05:00:40 9.1 % F Monocytes [#/volume] in Blood by Automated count 2024-03-30 05:00:40 288 Cell/uL F 0.0-1100.0 Basophils [#/volume] in Blood by Automated count 2024-03-30 05:00:40 35 Cell/uL F 0.0-400.0 Eosinophils [#/volume] in Blood by Automated count 2024-03-30 05:00:40 101 Cell/uL F 0.0-700.0 Neutrophils [#/volume] in Blood by Automated count 2024-03-30 05:00:40 1937 Cell/uL F 2000.0-8800.0 Leukocytes [#/volume] in Blood by Automated count 2024-03-30 05:00:40 3.2 x 10^3 cells/uL F 4.0-11.0 Lymphocytes [#/volume] in Blood by Automated count 2024-03-30 05:00:40 808 Cell/uL F 620.0-3660.0 Neutrophils/100 leukocytes in Blood by Automated count 2024-03-30 05:00:40 61.1 % F Eosinophils/100 leukocytes in Blood by Automated count 2024-03-30 05:00:40 3.2 % F Basophils/100 leukocytes in Blood by Automated count 2024-03-30 05:00:40 1.1 % F Lymphocytes/100 leukocytes in Blood by Automated count 2024-03-30 05:00:40 25.5 % F Monocytes/100 leukocytes in Blood by Automated count 2024-03-30 05:00:40 9.1 % F Monocytes [#/volume] in Blood by Automated count 2024-03-30 05:00:40 288 Cell/uL F 0.0-1100.0 Basophils [#/volume] in Blood by Automated count 2024-03-30 05:00:40 35 Cell/uL F 0.0-400.0 Eosinophils [#/volume] in Blood by Automated count 2024-03-30 05:00:40 101 Cell/uL F 0.0-700.0 Neutrophils [#/volume] in Blood by Automated count 2024-03-30 05:00:40 1937 Cell/uL F 2000.0-8800.0 Leukocytes [#/volume] in Blood by Automated count 2024-03-30 05:00:40 3.2 x 10^3 cells/uL F 4.0-11.0 Lymphocytes [#/volume] in Blood by Automated count 2024-03-30 05:00:40 808 Cell/uL F 620.0-3660.0 Lymphocytes/100 leukocytes in Blood by Automated count 2024-03-01 01:26:42 36.9 % F Monocytes/100 leukocytes in Blood by Automated count 2024-03-01 01:26:42 7.3 % F Basophils/100 leukocytes in Blood by Automated count 2024-03-01 01:26:42 1.1 % F Neutrophils/100 leukocytes in Blood by Automated count 2024-03-01 01:26:42 51.2 % F Eosinophils/100 leukocytes in Blood by Automated count 2024-03-01 01:26:42 3.5 % F Monocytes [#/volume] in Blood by Automated count 2024-03-01 01:26:42 185 Cell/uL F 0.0-1100.0 Basophils [#/volume] in Blood by Automated count 2024-03-01 01:26:42 28 Cell/uL F 0.0-400.0 Eosinophils [#/volume] in Blood by Automated count 2024-03-01 01:26:42 89 Cell/uL F 0.0-700.0 Neutrophils [#/volume] in Blood by Automated count 2024-03-01 01:26:42 1295 Cell/uL F 2000.0-8800.0 Leukocytes [#/volume] in Blood by Automated count 2024-03-01 01:26:42 2.5 x 10^3 cells/uL F 4.0-11.0 Lymphocytes [#/volume] in Blood by Automated count 2024-03-01 01:26:42 934 Cell/uL F 620.0-3660.0 Neutrophils/100 leukocytes in Blood by Automated count 2024-02-03 20:02:24 52.3 % F Lymphocytes/100 leukocytes in Blood by Automated count 2024-02-03 20:02:24 34.7 % F Monocytes/100 leukocytes in Blood by Automated count 2024-02-03 20:02:24 7.6 % F Basophils/100 leukocytes in Blood by Automated count 2024-02-03 20:02:24 1.6 % F Eosinophils/100 leukocytes in Blood by Automated count 2024-02-03 20:02:24 3.8 % F Monocytes [#/volume] in Blood by Automated count 2024-02-03 20:02:24 215 Cell/uL F 0.0-1100.0 Basophils [#/volume] in Blood by Automated count 2024-02-03 20:02:24 45 Cell/uL F 0.0-400.0 Eosinophils [#/volume] in Blood by Automated count 2024-02-03 20:02:24 108 Cell/uL F 0.0-700.0 Neutrophils [#/volume] in Blood by Automated count 2024-02-03 20:02:24 1480 Cell/uL F 2000.0-8800.0 Leukocytes [#/volume] in Blood by Automated count 2024-02-03 20:02:24 2.8 x 10^3 cells/uL F 4.0-11.0 Lymphocytes [#/volume] in Blood by Automated count 2024-02-03 20:02:24 982 Cell/uL F 620.0-3660.0 Basophils/100 leukocytes in Blood by Automated count 2024-01-18 23:53:14 0.9 % F Neutrophils/100 leukocytes in Blood by Automated count 2024-01-18 23:53:14 64 % F Monocytes/100 leukocytes in Blood by Automated count 2024-01-18 23:53:14 9.1 % F Eosinophils/100 leukocytes in Blood by Automated count 2024-01-18 23:53:14 2.6 % F Lymphocytes/100 leukocytes in Blood by Automated count 2024-01-18 23:53:14 23.4 % F Monocytes [#/volume] in Blood by Automated count 2024-01-18 23:53:14 396 Cell/uL F 0.0-1100.0 Basophils [#/volume] in Blood by Automated count 2024-01-18 23:53:14 39 Cell/uL F 0.0-400.0 Eosinophils [#/volume] in Blood by Automated count 2024-01-18 23:53:14 113 Cell/uL F 0.0-700.0 Neutrophils [#/volume] in Blood by Automated count 2024-01-18 23:53:14 2784 Cell/uL F 2000.0-8800.0 Leukocytes [#/volume] in Blood by Automated count 2024-01-18 23:53:14 4.4 x 10^3 cells/uL F 4.0-11.0 Lymphocytes [#/volume] in Blood by Automated count 2024-01-18 23:53:14 1018 Cell/uL F 620.0-3660.0 Lymphocytes/100 leukocytes in Blood by Automated count 2024-01-18 23:53:14 23.4 % F Monocytes/100 leukocytes in Blood by Automated count 2024-01-18 23:53:14 9.1 % F Neutrophils/100 leukocytes in Blood by Automated count 2024-01-18 23:53:14 64 % F Basophils/100 leukocytes in Blood by Automated count 2024-01-18 23:53:14 0.9 % F Eosinophils/100 leukocytes in Blood by Automated count 2024-01-18 23:53:14 2.6 % F Monocytes [#/volume] in Blood by Automated count 2024-01-18 23:53:14 396 Cell/uL F 0.0-1100.0 Basophils [#/volume] in Blood by Automated count 2024-01-18 23:53:14 39 Cell/uL F 0.0-400.0 Eosinophils [#/volume] in Blood by Automated count 2024-01-18 23:53:14 113 Cell/uL F 0.0-700.0 Neutrophils [#/volume] in Blood by Automated count 2024-01-18 23:53:14 2784 Cell/uL F 2000.0-8800.0 Leukocytes [#/volume] in Blood by Automated count 2024-01-18 23:53:14 4.4 x 10^3 cells/uL F 4.0-11.0 Lymphocytes [#/volume] in Blood by Automated count 2024-01-18 23:53:14 1018 Cell/uL F 620.0-3660.0 MineralBone Disorder Description Draw Date Result/Unit Status Ref Range Result Comments CA CORRECTED 2025-07-18 01:00:55 8.8 mg/dL F Calcium [Mass/volume] in Serum or Plasma 2025-07-18 00:56:59 8.1 mg/dL F 8.7-10.4 CA CORRECTED 2025-07-03 18:09:52 7.9 mg/dL F CA/PHOS PRODUCT 2025-07-03 18:07:49 36.7 Calc F 21.0-53.0 CA*PO4 CORRCTD 2025-07-03 18:07:49 40.4 Calc F 21.0-53.0 Calcium [Mass/volume] in Serum or Plasma 2025-07-03 18:06:42 7.2 mg/dL F 8.7-10.4 Parathyrin.intact [Mass/volume] in Serum or Plasma 2025-07-03 15:08:20 406 pg/mL F 18.0-80.0 Alkaline phosphatase [Enzymatic activity/volume] in Serum or Plasma 2025-07-03 14:56:19 234 U/L F 46.0-116.0 Phosphate [Mass/volume] in Serum or Plasma 2025-07-03 14:56:19 5.1 mg/dL F 2.4-5.1 Parathyrin.intact [Mass/volume] in Serum or Plasma 2025-05-30 14:31:23 282 pg/mL F 18.0-80.0 Parathyrin.intact [Mass/volume] in Serum or Plasma 2025-05-30 14:31:23 282 pg/mL F 18.0-80.0 CA CORRECTED 2025-05-30 07:08:57 8.3 mg/dL F CA CORRECTED 2025-05-30 07:08:57 8.3 mg/dL F CA/PHOS PRODUCT 2025-05-30 07:06:27 37.7 Calc F 21.0-53.0 CA*PO4 CORRCTD 2025-05-30 07:06:27 40.9 Calc F 21.0-53.0 CA/PHOS PRODUCT 2025-05-30 07:06:27 37.7 Calc F 21.0-53.0 CA*PO4 CORRCTD 2025-05-30 07:06:27 40.9 Calc F 21.0-53.0 Calcium [Mass/volume] in Serum or Plasma 2025-05-30 06:52:55 7.7 mg/dL F 8.7-10.4 Calcium [Mass/volume] in Serum or Plasma 2025-05-30 06:52:55 7.7 mg/dL F 8.7-10.4 Alkaline phosphatase [Enzymatic activity/volume] in Serum or Plasma 2025-05-30 01:55:27 165 U/L F 46.0-116.0 Phosphate [Mass/volume] in Serum or Plasma 2025-05-30 01:55:27 4.9 mg/dL F 2.4-5.1 Alkaline phosphatase [Enzymatic activity/volume] in Serum or Plasma 2025-05-30 01:55:27 165 U/L F 46.0-116.0 Phosphate [Mass/volume] in Serum or Plasma 2025-05-30 01:55:27 4.9 mg/dL F 2.4-5.1 CA CORRECTED 2025-05-16 20:05:13 8.1 mg/dL F CA/PHOS PRODUCT 2025-05-16 20:03:50 48 Calc F 21.0-53.0 CA*PO4 CORRCTD 2025-05-16 20:03:50 51.6 Calc F 21.0-53.0 Calcium [Mass/volume] in Serum or Plasma 2025-05-16 20:01:31 7.5 mg/dL F 8.7-10.4 Parathyrin.intact [Mass/volume] in Serum or Plasma 2025-05-16 14:46:23 448 pg/mL F 18.0-80.0 Phosphate [Mass/volume] in Serum or Plasma 2025-05-16 14:01:10 6.4 mg/dL F 2.4-5.1 CA/PHOS PRODUCT 2025-05-14 07:39:25 F Unable to Calculate.,Cancele d - Specimen not received 5 days past draw date CA*PO4 CORRCTD 2025-05-14 07:39:25 F Canceled - Specimen not received 5 days past draw date,Unable to Calculate. Calcium [Mass/volume] in Serum or Plasma 2025-05-14 07:26:09 F Canceled - Specimen not received 5 days past draw date Phosphate [Mass/volume] in Serum or Plasma 2025-05-14 07:26:09 F Canceled - Specimen not received 5 days past draw date Parathyrin.intact [Mass/volume] in Serum or Plasma 2025-05-14 07:26:09 F Canceled - Specimen not received 5 days past draw date 25-Hydroxyvitamin D3+25-Hydroxyvitamin D2 [Mass/volume] in Serum or Plasma 2025-05-10 04:47:35 57.8 ng/mL F 25-Hydroxyvitamin D3+25-Hydroxyvitamin D2 [Mass/volume] in Serum or Plasma 2025-05-10 04:47:35 57.8 ng/mL F Alkaline phosphatase [Enzymatic activity/volume] in Serum or Plasma 2025-05-09 19:07:18 148 U/L F 46.0-116.0 Alkaline phosphatase [Enzymatic activity/volume] in Serum or Plasma 2025-05-09 19:07:18 148 U/L F 46.0-116.0 CA CORRECTED 2025-05-02 17:05:40 8.2 mg/dL F CA CORRECTED 2025-05-02 17:05:40 8.2 mg/dL F CA CORRECTED 2025-05-02 17:05:40 8.2 mg/dL F CA/PHOS PRODUCT 2025-05-02 17:02:43 39 Calc F 21.0-53.0 CA*PO4 CORRCTD 2025-05-02 17:02:43 41 Calc F 21.0-53.0 CA/PHOS PRODUCT 2025-05-02 17:02:43 39 Calc F 21.0-53.0 CA*PO4 CORRCTD 2025-05-02 17:02:43 41 Calc F 21.0-53.0 CA/PHOS PRODUCT 2025-05-02 17:02:43 39 Calc F 21.0-53.0 CA*PO4 CORRCTD 2025-05-02 17:02:43 41 Calc F 21.0-53.0 Calcium [Mass/volume] in Serum or Plasma 2025-05-02 16:59:42 7.8 mg/dL F 8.7-10.4 Calcium [Mass/volume] in Serum or Plasma 2025-05-02 16:59:42 7.8 mg/dL F 8.7-10.4 Calcium [Mass/volume] in Serum or Plasma 2025-05-02 16:59:42 7.8 mg/dL F 8.7-10.4 Alkaline phosphatase [Enzymatic activity/volume] in Serum or Plasma 2025-05-02 13:55:22 134 U/L F 46.0-116.0 Phosphate [Mass/volume] in Serum or Plasma 2025-05-02 13:55:22 5 mg/dL F 2.4-5.1 Alkaline phosphatase [Enzymatic activity/volume] in Serum or Plasma 2025-05-02 13:55:22 134 U/L F 46.0-116.0 Phosphate [Mass/volume] in Serum or Plasma 2025-05-02 13:55:22 5 mg/dL F 2.4-5.1 Alkaline phosphatase [Enzymatic activity/volume] in Serum or Plasma 2025-05-02 13:55:22 134 U/L F 46.0-116.0 Phosphate [Mass/volume] in Serum or Plasma 2025-05-02 13:55:22 5 mg/dL F 2.4-5.1 Parathyrin.intact [Mass/volume] in Serum or Plasma 2025-05-02 13:30:21 495 pg/mL F 18.0-80.0 Parathyrin.intact [Mass/volume] in Serum or Plasma 2025-05-02 13:30:21 495 pg/mL F 18.0-80.0 Parathyrin.intact [Mass/volume] in Serum or Plasma 2025-05-02 13:30:21 495 pg/mL F 18.0-80.0 CA CORRECTED 2025-04-19 05:53:59 7.7 mg/dL F Calcium [Mass/volume] in Serum or Plasma 2025-04-19 05:44:00 7.5 mg/dL F 8.7-10.4 CA CORRECTED 2025-03-01 00:02:13 8.1 mg/dL F CA CORRECTED 2025-03-01 00:02:13 8.1 mg/dL F CA/PHOS PRODUCT 2025-03-01 00:00:18 54.7 Calc F 21.0-53.0 CA*PO4 CORRCTD 2025-03-01 00:00:18 58.2 Calc F 21.0-53.0 CA/PHOS PRODUCT 2025-03-01 00:00:18 54.7 Calc F 21.0-53.0 CA*PO4 CORRCTD 2025-03-01 00:00:18 58.2 Calc F 21.0-53.0 Calcium [Mass/volume] in Serum or Plasma 2025-02-28 23:35:54 7.6 mg/dL F 8.7-10.4 Calcium [Mass/volume] in Serum or Plasma 2025-02-28 23:35:54 7.6 mg/dL F 8.7-10.4 Phosphate [Mass/volume] in Serum or Plasma 2025-02-28 19:43:20 7.2 mg/dL F 2.4-5.1 Alkaline phosphatase [Enzymatic activity/volume] in Serum or Plasma 2025-02-28 19:43:20 120 U/L F 46.0-116.0 Phosphate [Mass/volume] in Serum or Plasma 2025-02-28 19:43:20 7.2 mg/dL F 2.4-5.1 Alkaline phosphatase [Enzymatic activity/volume] in Serum or Plasma 2025-02-28 19:43:20 120 U/L F 46.0-116.0 Parathyrin.intact [Mass/volume] in Serum or Plasma 2025-02-28 16:55:19 703 pg/mL F 18.0-80.0 Parathyrin.intact [Mass/volume] in Serum or Plasma 2025-02-28 16:55:19 703 pg/mL F 18.0-80.0 Parathyrin.intact [Mass/volume] in Serum or Plasma 2025-02-14 13:24:16 594 pg/mL F 18.0-80.0 Parathyrin.intact [Mass/volume] in Serum or Plasma 2025-02-14 13:24:16 594 pg/mL F 18.0-80.0 Parathyrin.intact [Mass/volume] in Serum or Plasma 2025-02-14 13:24:16 594 pg/mL F 18.0-80.0 Parathyrin.intact [Mass/volume] in Serum or Plasma 2025-02-12 07:25:05 F Canceled - Specimen not received 5 days past draw date Parathyrin.intact [Mass/volume] in Serum or Plasma 2025-02-12 07:25:05 F Canceled - Specimen not received 5 days past draw date,Canceled - Specimen not received 5 days past draw date Parathyrin.intact [Mass/volume] in Serum or Plasma 2025-02-12 07:25:05 F Canceled - Specimen not received 5 days past draw date Magnesium [Mass/volume] in Serum or Plasma 2025-02-09 16:22:15 1.3 mg/dL F 1.3-2.7 Magnesium [Mass/volume] in Serum or Plasma 2025-02-09 16:22:15 1.3 mg/dL F 1.3-2.7 CA CORRECTED 2025-01-22 20:43:13 8.1 mg/dL F CA CORRECTED 2025-01-22 20:43:13 8.1 mg/dL F CA CORRECTED 2025-01-22 20:43:13 8.1 mg/dL F CA/PHOS PRODUCT 2025-01-22 20:35:42 56.9 Calc F 21.0-53.0 CA*PO4 CORRCTD 2025-01-22 20:35:42 59.3 Calc F 21.0-53.0 CA/PHOS PRODUCT 2025-01-22 20:35:42 56.9 Calc F 21.0-53.0 CA*PO4 CORRCTD 2025-01-22 20:35:42 59.3 Calc F 21.0-53.0 CA*PO4 CORRCTD 2025-01-22 20:35:42 59.3 Calc F 21.0-53.0 CA/PHOS PRODUCT 2025-01-22 20:35:42 56.9 Calc F 21.0-53.0 Phosphate [Mass/volume] in Serum or Plasma 2025-01-22 20:31:23 7.3 mg/dL F 2.4-5.1 Calcium [Mass/volume] in Serum or Plasma 2025-01-22 20:31:23 7.8 mg/dL F 8.7-10.4 Phosphate [Mass/volume] in Serum or Plasma 2025-01-22 20:31:23 7.3 mg/dL F 2.4-5.1 Calcium [Mass/volume] in Serum or Plasma 2025-01-22 20:31:23 7.8 mg/dL F 8.7-10.4 Phosphate [Mass/volume] in Serum or Plasma 2025-01-22 20:31:23 7.3 mg/dL F 2.4-5.1 Calcium [Mass/volume] in Serum or Plasma 2025-01-22 20:31:23 7.8 mg/dL F 8.7-10.4 Alkaline phosphatase [Enzymatic activity/volume] in Serum or Plasma 2025-01-22 13:05:14 107 U/L F 46.0-116.0 Alkaline phosphatase [Enzymatic activity/volume] in Serum or Plasma 2025-01-22 13:05:14 107 U/L F 46.0-116.0 Alkaline phosphatase [Enzymatic activity/volume] in Serum or Plasma 2025-01-22 13:05:14 107 U/L F 46.0-116.0 Parathyrin.intact [Mass/volume] in Serum or Plasma 2025-01-22 12:32:19 F CANCELED - TEST CANCELED Parathyrin.intact [Mass/volume] in Serum or Plasma 2025-01-22 12:32:19 F CANCELED - TEST CANCELED Parathyrin.intact [Mass/volume] in Serum or Plasma 2025-01-22 12:32:19 F CANCELED - TEST CANCELED,CANCELED - TEST CANCELED Phosphate [Mass/volume] in Serum or Plasma 2025-01-11 18:36:39 7.9 mg/dL F 2.3-4.7 Calcium [Mass/volume] in Serum or Plasma 2025-01-11 18:36:39 7.7 mg/dL F 8.5-10.5 Phosphate [Mass/volume] in Serum or Plasma 2025-01-11 18:36:39 7.9 mg/dL F 2.3-4.7 Calcium [Mass/volume] in Serum or Plasma 2025-01-11 18:36:39 7.7 mg/dL F 8.5-10.5 CA CORRECTED 2024-11-30 07:46:36 8.5 mg/dL F CA CORRECTED 2024-11-30 07:46:36 8.5 mg/dL F CA*PO4 CORRCTD 2024-11-30 07:44:44 47 Calc F 21.0-53.0 CA/PHOS PRODUCT 2024-11-30 07:44:44 45.7 Calc F 21.0-53.0 CA*PO4 CORRCTD 2024-11-30 07:44:44 47 Calc F 21.0-53.0 CA/PHOS PRODUCT 2024-11-30 07:44:44 45.7 Calc F 21.0-53.0 Phosphate [Mass/volume] in Serum or Plasma 2024-11-30 07:14:56 5.5 mg/dL F 2.4-5.1 Calcium [Mass/volume] in Serum or Plasma 2024-11-30 07:14:56 8.3 mg/dL F 8.7-10.4 Phosphate [Mass/volume] in Serum or Plasma 2024-11-30 07:14:56 5.5 mg/dL F 2.4-5.1 Calcium [Mass/volume] in Serum or Plasma 2024-11-30 07:14:56 8.3 mg/dL F 8.7-10.4 Parathyrin.intact [Mass/volume] in Serum or Plasma 2024-11-29 23:10:24 297 pg/mL F 18.0-80.0 Parathyrin.intact [Mass/volume] in Serum or Plasma 2024-11-29 23:10:24 297 pg/mL F 18.0-80.0 Alkaline phosphatase [Enzymatic activity/volume] in Serum or Plasma 2024-11-29 14:39:18 67 U/L F 46.0-116.0 Alkaline phosphatase [Enzymatic activity/volume] in Serum or Plasma 2024-11-29 14:39:18 67 U/L F 46.0-116.0 CA CORRECTED 2024-11-02 07:20:55 8 mg/dL F CA CORRECTED 2024-11-02 07:20:55 8 mg/dL F CA CORRECTED 2024-11-02 07:20:55 8 mg/dL F CA/PHOS PRODUCT 2024-11-02 07:19:05 49.5 Calc F 21.0-53.0 CA*PO4 CORRCTD 2024-11-02 07:19:05 52.7 Calc F 21.0-53.0 CA/PHOS PRODUCT 2024-11-02 07:19:05 49.5 Calc F 21.0-53.0 CA*PO4 CORRCTD 2024-11-02 07:19:05 52.7 Calc F 21.0-53.0 CA/PHOS PRODUCT 2024-11-02 07:19:05 49.5 Calc F 21.0-53.0 CA*PO4 CORRCTD 2024-11-02 07:19:05 52.7 Calc F 21.0-53.0 Phosphate [Mass/volume] in Serum or Plasma 2024-11-02 05:34:21 6.6 mg/dL F 2.4-5.1 Calcium [Mass/volume] in Serum or Plasma 2024-11-02 05:34:21 7.5 mg/dL F 8.7-10.4 Phosphate [Mass/volume] in Serum or Plasma 2024-11-02 05:34:21 6.6 mg/dL F 2.4-5.1 Calcium [Mass/volume] in Serum or Plasma 2024-11-02 05:34:21 7.5 mg/dL F 8.7-10.4 Phosphate [Mass/volume] in Serum or Plasma 2024-11-02 05:34:21 6.6 mg/dL F 2.4-5.1 Calcium [Mass/volume] in Serum or Plasma 2024-11-02 05:34:21 7.5 mg/dL F 8.7-10.4 Parathyrin.intact [Mass/volume] in Serum or Plasma 2024-11-01 15:20:15 514 pg/mL F 18.0-80.0 Parathyrin.intact [Mass/volume] in Serum or Plasma 2024-11-01 15:20:15 514 pg/mL F 18.0-80.0 Parathyrin.intact [Mass/volume] in Serum or Plasma 2024-11-01 15:20:15 514 pg/mL F 18.0-80.0 Alkaline phosphatase [Enzymatic activity/volume] in Serum or Plasma 2024-11-01 13:36:15 66 U/L F 46.0-116.0 Alkaline phosphatase [Enzymatic activity/volume] in Serum or Plasma 2024-11-01 13:36:15 66 U/L F 46.0-116.0 Alkaline phosphatase [Enzymatic activity/volume] in Serum or Plasma 2024-11-01 13:36:15 66 U/L F 46.0-116.0 CA CORRECTED 2024-10-05 22:21:26 8.3 mg/dL F CA CORRECTED 2024-10-05 22:21:26 8.3 mg/dL F CA/PHOS PRODUCT 2024-10-05 22:19:27 44.8 Calc F 21.0-53.0 CA*PO4 CORRCTD 2024-10-05 22:19:27 49.1 Calc F 21.0-53.0 CA*PO4 CORRCTD 2024-10-05 22:19:27 49.1 Calc F 21.0-53.0 CA/PHOS PRODUCT 2024-10-05 22:19:27 44.8 Calc F 21.0-53.0 Phosphate [Mass/volume] in Serum or Plasma 2024-10-05 20:04:41 5.9 mg/dL F 2.4-5.1 Calcium [Mass/volume] in Serum or Plasma 2024-10-05 20:04:41 7.6 mg/dL F 8.7-10.4 Phosphate [Mass/volume] in Serum or Plasma 2024-10-05 20:04:41 5.9 mg/dL F 2.4-5.1 Calcium [Mass/volume] in Serum or Plasma 2024-10-05 20:04:41 7.6 mg/dL F 8.7-10.4 Parathyrin.intact [Mass/volume] in Serum or Plasma 2024-10-05 15:46:20 402 pg/mL F 18.0-80.0 Parathyrin.intact [Mass/volume] in Serum or Plasma 2024-10-05 15:46:20 402 pg/mL F 18.0-80.0 Alkaline phosphatase [Enzymatic activity/volume] in Serum or Plasma 2024-10-05 14:30:23 78 U/L F 46.0-116.0 Alkaline phosphatase [Enzymatic activity/volume] in Serum or Plasma 2024-10-05 14:30:23 78 U/L F 46.0-116.0 CA CORRECTED 2024-09-02 06:53:04 8.6 mg/dL F CA CORRECTED 2024-09-02 06:53:04 8.6 mg/dL F CA*PO4 CORRCTD 2024-09-02 06:49:55 52.2 Calc F 21.0-53.0 CA/PHOS PRODUCT 2024-09-02 06:49:55 48.8 Calc F 21.0-53.0 CA*PO4 CORRCTD 2024-09-02 06:49:55 52.2 Calc F 21.0-53.0 CA/PHOS PRODUCT 2024-09-02 06:49:55 48.8 Calc F 21.0-53.0 Phosphate [Mass/volume] in Serum or Plasma 2024-09-02 06:43:33 6.1 mg/dL F 2.4-5.1 Calcium [Mass/volume] in Serum or Plasma 2024-09-02 06:43:33 8 mg/dL F 8.7-10.4 Phosphate [Mass/volume] in Serum or Plasma 2024-09-02 06:43:33 6.1 mg/dL F 2.4-5.1 Calcium [Mass/volume] in Serum or Plasma 2024-09-02 06:43:33 8 mg/dL F 8.7-10.4 Alkaline phosphatase [Enzymatic activity/volume] in Serum or Plasma 2024-09-01 19:23:14 75 U/L F 46.0-116.0 Alkaline phosphatase [Enzymatic activity/volume] in Serum or Plasma 2024-09-01 19:23:14 75 U/L F 46.0-116.0 Parathyrin.intact [Mass/volume] in Serum or Plasma 2024-09-01 17:52:20 469 pg/mL F 18.0-80.0 Parathyrin.intact [Mass/volume] in Serum or Plasma 2024-09-01 17:52:20 469 pg/mL F 18.0-80.0 CA CORRECTED 2024-08-12 06:03:58 8.3 mg/dL F CA/PHOS PRODUCT 2024-08-12 06:03:06 47 Calc F 21.0-53.0 CA*PO4 CORRCTD 2024-08-12 06:03:06 50.4 Calc F 21.0-53.0 Calcium [Mass/volume] in Serum or Plasma 2024-08-12 06:00:06 7.7 mg/dL F 8.7-10.4 Parathyrin.intact [Mass/volume] in Serum or Plasma 2024-08-11 18:09:14 425 pg/mL F 18.0-80.0 Phosphate [Mass/volume] in Serum or Plasma 2024-08-11 16:36:22 6.1 mg/dL F 2.4-5.1 Alkaline phosphatase [Enzymatic activity/volume] in Serum or Plasma 2024-08-11 16:36:22 81 U/L F 46.0-116.0 CA/PHOS PRODUCT 2024-08-10 08:36:41 F Canceled - Specimen not received 5 days past draw date CA*PO4 CORRCTD 2024-08-10 08:36:41 F Canceled - Specimen not received 5 days past draw date Phosphate [Mass/volume] in Serum or Plasma 2024-08-10 08:23:28 F Canceled - Specimen not received 5 days past draw date Parathyrin.intact [Mass/volume] in Serum or Plasma 2024-08-10 08:23:28 F Canceled - Specimen not received 5 days past draw date Alkaline phosphatase [Enzymatic activity/volume] in Serum or Plasma 2024-08-10 08:23:28 F Canceled - Specimen not received 5 days past draw date Calcium [Mass/volume] in Serum or Plasma 2024-08-10 08:23:28 F Canceled - Specimen not received 5 days past draw date CA CORRECTED 2024-07-05 08:24:00 8.9 mg/dL F CA CORRECTED 2024-07-05 08:24:00 8.9 mg/dL F CA*PO4 CORRCTD 2024-07-05 07:46:49 58.7 Calc F 21.0-53.0 CA/PHOS PRODUCT 2024-07-05 07:46:49 57.4 Calc F 21.0-53.0 CA*PO4 CORRCTD 2024-07-05 07:46:49 58.7 Calc F 21.0-53.0 CA/PHOS PRODUCT 2024-07-05 07:46:49 57.4 Calc F 21.0-53.0 Parathyrin.intact [Mass/volume] in Serum or Plasma 2024-07-05 07:28:15 426 pg/mL F 18.0-80.0 Parathyrin.intact [Mass/volume] in Serum or Plasma 2024-07-05 07:28:15 426 pg/mL F 18.0-80.0 Calcium [Mass/volume] in Serum or Plasma 2024-07-05 07:15:39 8.7 mg/dL F 8.7-10.4 Calcium [Mass/volume] in Serum or Plasma 2024-07-05 07:15:39 8.7 mg/dL F 8.7-10.4 Phosphate [Mass/volume] in Serum or Plasma 2024-07-05 01:25:42 6.6 mg/dL F 2.4-5.1 Alkaline phosphatase [Enzymatic activity/volume] in Serum or Plasma 2024-07-05 01:25:42 118 U/L F 46.0-116.0 Phosphate [Mass/volume] in Serum or Plasma 2024-07-05 01:25:42 6.6 mg/dL F 2.4-5.1 Alkaline phosphatase [Enzymatic activity/volume] in Serum or Plasma 2024-07-05 01:25:42 118 U/L F 46.0-116.0 CA CORRECTED 2024-06-08 17:49:03 9.3 mg/dL F CA CORRECTED 2024-06-08 17:49:03 9.3 mg/dL F CA CORRECTED 2024-06-08 17:49:03 9.3 mg/dL F CA*PO4 CORRCTD 2024-06-08 17:46:15 59.5 Calc F 21.0-53.0 CA/PHOS PRODUCT 2024-06-08 17:46:15 56.3 Calc F 21.0-53.0 CA*PO4 CORRCTD 2024-06-08 17:46:15 59.5 Calc F 21.0-53.0 CA/PHOS PRODUCT 2024-06-08 17:46:15 56.3 Calc F 21.0-53.0 CA/PHOS PRODUCT 2024-06-08 17:46:15 56.3 Calc F 21.0-53.0 CA*PO4 CORRCTD 2024-06-08 17:46:15 59.5 Calc F 21.0-53.0 Calcium [Mass/volume] in Serum or Plasma 2024-06-08 17:45:01 8.8 mg/dL F 8.7-10.4 Calcium [Mass/volume] in Serum or Plasma 2024-06-08 17:45:01 8.8 mg/dL F 8.7-10.4 Calcium [Mass/volume] in Serum or Plasma 2024-06-08 17:45:01 8.8 mg/dL F 8.7-10.4 Phosphate [Mass/volume] in Serum or Plasma 2024-06-08 15:31:19 6.4 mg/dL F 2.4-5.1 Alkaline phosphatase [Enzymatic activity/volume] in Serum or Plasma 2024-06-08 15:31:19 75 U/L F 46.0-116.0 Phosphate [Mass/volume] in Serum or Plasma 2024-06-08 15:31:19 6.4 mg/dL F 2.4-5.1 Alkaline phosphatase [Enzymatic activity/volume] in Serum or Plasma 2024-06-08 15:31:19 75 U/L F 46.0-116.0 Phosphate [Mass/volume] in Serum or Plasma 2024-06-08 15:31:19 6.4 mg/dL F 2.4-5.1 Alkaline phosphatase [Enzymatic activity/volume] in Serum or Plasma 2024-06-08 15:31:19 75 U/L F 46.0-116.0 Parathyrin.intact [Mass/volume] in Serum or Plasma 2024-06-08 13:40:26 418 pg/mL F 18.0-80.0 Parathyrin.intact [Mass/volume] in Serum or Plasma 2024-06-08 13:40:26 418 pg/mL F 18.0-80.0 Parathyrin.intact [Mass/volume] in Serum or Plasma 2024-06-08 13:40:26 418 pg/mL F 18.0-80.0 CA CORRECTED 2024-05-03 10:10:28 8.5 mg/dL F CA CORRECTED 2024-05-03 10:10:28 8.5 mg/dL F CA/PHOS PRODUCT 2024-05-03 06:58:50 52.3 Calc F 21.0-53.0 CA*PO4 CORRCTD 2024-05-03 06:58:50 53.6 Calc F 21.0-53.0 CA/PHOS PRODUCT 2024-05-03 06:58:50 52.3 Calc F 21.0-53.0 CA*PO4 CORRCTD 2024-05-03 06:58:50 53.6 Calc F 21.0-53.0 Calcium [Mass/volume] in Serum or Plasma 2024-05-03 06:49:39 8.3 mg/dL F 8.7-10.4 Calcium [Mass/volume] in Serum or Plasma 2024-05-03 06:49:39 8.3 mg/dL F 8.7-10.4 25-Hydroxyvitamin D3+25-Hydroxyvitamin D2 [Mass/volume] in Serum or Plasma 2024-05-03 03:59:41 63.9 ng/mL F 25-Hydroxyvitamin D3+25-Hydroxyvitamin D2 [Mass/volume] in Serum or Plasma 2024-05-03 03:59:41 63.9 ng/mL F Parathyrin.intact [Mass/volume] in Serum or Plasma 2024-05-02 22:42:37 243 pg/mL F 18.0-80.0 Parathyrin.intact [Mass/volume] in Serum or Plasma 2024-05-02 22:42:37 243 pg/mL F 18.0-80.0 Phosphate [Mass/volume] in Serum or Plasma 2024-05-02 21:32:35 6.3 mg/dL F 2.4-5.1 Alkaline phosphatase [Enzymatic activity/volume] in Serum or Plasma 2024-05-02 21:32:35 64 U/L F 46.0-116.0 Phosphate [Mass/volume] in Serum or Plasma 2024-05-02 21:32:35 6.3 mg/dL F 2.4-5.1 Alkaline phosphatase [Enzymatic activity/volume] in Serum or Plasma 2024-05-02 21:32:35 64 U/L F 46.0-116.0 Parathyrin.intact [Mass/volume] in Serum or Plasma 2024-03-31 07:01:29 182 pg/mL F 18.0-80.0 Parathyrin.intact [Mass/volume] in Serum or Plasma 2024-03-31 07:01:29 182 pg/mL F 18.0-80.0 Parathyrin.intact [Mass/volume] in Serum or Plasma 2024-03-31 07:01:29 182 pg/mL F 18.0-80.0 CA CORRECTED 2024-03-30 07:32:42 8.8 mg/dL F CA CORRECTED 2024-03-30 07:32:42 8.8 mg/dL F CA CORRECTED 2024-03-30 07:32:42 8.8 mg/dL F CA/PHOS PRODUCT 2024-03-30 07:21:40 61.2 Calc F 21.0-53.0 CA*PO4 CORRCTD 2024-03-30 07:21:40 63.4 Calc F 21.0-53.0 CA/PHOS PRODUCT 2024-03-30 07:21:40 61.2 Calc F 21.0-53.0 CA*PO4 CORRCTD 2024-03-30 07:21:40 63.4 Calc F 21.0-53.0 CA/PHOS PRODUCT 2024-03-30 07:21:40 61.2 Calc F 21.0-53.0 CA*PO4 CORRCTD 2024-03-30 07:21:40 63.4 Calc F 21.0-53.0 Calcium [Mass/volume] in Serum or Plasma 2024-03-30 07:17:39 8.5 mg/dL F 8.7-10.4 Calcium [Mass/volume] in Serum or Plasma 2024-03-30 07:17:39 8.5 mg/dL F 8.7-10.4 Calcium [Mass/volume] in Serum or Plasma 2024-03-30 07:17:39 8.5 mg/dL F 8.7-10.4 Phosphate [Mass/volume] in Serum or Plasma 2024-03-30 03:53:37 7.2 mg/dL F 2.4-5.1 Alkaline phosphatase [Enzymatic activity/volume] in Serum or Plasma 2024-03-30 03:53:37 56 U/L F 46.0-116.0 Phosphate [Mass/volume] in Serum or Plasma 2024-03-30 03:53:37 7.2 mg/dL F 2.4-5.1 Alkaline phosphatase [Enzymatic activity/volume] in Serum or Plasma 2024-03-30 03:53:37 56 U/L F 46.0-116.0 Phosphate [Mass/volume] in Serum or Plasma 2024-03-30 03:53:37 7.2 mg/dL F 2.4-5.1 Alkaline phosphatase [Enzymatic activity/volume] in Serum or Plasma 2024-03-30 03:53:37 56 U/L F 46.0-116.0 Parathyrin.intact [Mass/volume] in Serum or Plasma 2024-03-01 07:24:47 236 pg/mL F 18.0-80.0 CA CORRECTED 2024-03-01 06:44:41 8.9 mg/dL F CA*PO4 CORRCTD 2024-03-01 06:42:41 53.4 Calc F 21.0-53.0 CA/PHOS PRODUCT 2024-03-01 06:42:41 49.8 Calc F 21.0-53.0 Calcium [Mass/volume] in Serum or Plasma 2024-03-01 06:40:37 8.3 mg/dL F 8.7-10.4 Phosphate [Mass/volume] in Serum or Plasma 2024-02-29 17:02:39 6 mg/dL F 2.4-5.1 Alkaline phosphatase [Enzymatic activity/volume] in Serum or Plasma 2024-02-29 17:02:39 58 U/L F 46.0-116.0 CA CORRECTED 2024-02-04 04:16:29 8.6 mg/dL F CA*PO4 CORRCTD 2024-02-04 04:10:25 53.3 Calc F 21.0-53.0 CA/PHOS PRODUCT 2024-02-04 04:10:25 50.8 Calc F 21.0-53.0 Calcium [Mass/volume] in Serum or Plasma 2024-02-04 04:07:43 8.2 mg/dL F 8.7-10.4 Parathyrin.intact [Mass/volume] in Serum or Plasma 2024-02-03 21:24:09 237 pg/mL F 18.0-80.0 Phosphate [Mass/volume] in Serum or Plasma 2024-02-03 19:48:32 6.2 mg/dL F 2.4-5.1 Alkaline phosphatase [Enzymatic activity/volume] in Serum or Plasma 2024-02-03 19:48:32 59 U/L F 46.0-116.0 25-Hydroxyvitamin D3+25-Hydroxyvitamin D2 [Mass/volume] in Serum or Plasma 2024-01-19 02:19:03 63.1 ng/mL F 25-Hydroxyvitamin D3+25-Hydroxyvitamin D2 [Mass/volume] in Serum or Plasma 2024-01-19 02:19:03 63.1 ng/mL F Alkaline phosphatase [Enzymatic activity/volume] in Serum or Plasma 2024-01-18 21:13:35 70 U/L F 46.0-116.0 Alkaline phosphatase [Enzymatic activity/volume] in Serum or Plasma 2024-01-18 21:13:35 70 U/L F 46.0-116.0 CA CORRECTED F Calcium [Mass/volume] in Serum or Plasma Phosphate [Mass/volume] in Serum or Plasma CA/PHOS PRODUCT CA CORRECTED CA*PO4 CORRCTD Parathyrin.intact [Mass/volume] in Serum or Plasma Calcium [Mass/volume] in Serum or Plasma Phosphate [Mass/volume] in Serum or Plasma CA/PHOS PRODUCT CA CORRECTED CA*PO4 CORRCTD Parathyrin.intact [Mass/volume] in Serum or Plasma CA CORRECTED F Parathyrin.intact [Mass/volume] in Serum or Plasma Parathyrin.intact [Mass/volume] in Serum or Plasma Phosphate [Mass/volume] in Serum or Plasma Calcium [Mass/volume] in Serum or Plasma CA CORRECTED CA*PO4 CORRCTD CA/PHOS PRODUCT Phosphate [Mass/volume] in Serum or Plasma CA CORRECTED CA/PHOS PRODUCT CA*PO4 CORRCTD Calcium [Mass/volume] in Serum or Plasma Nutrition Description Draw Date Result/Unit Status Ref Range Result Comments Potassium [Moles/volume] in Serum or Plasma 2025-07-18 00:56:59 4.3 mEq/L F 3.5-5.5 Potassium [Moles/volume] in Serum or Plasma 2025-07-03 18:06:42 4.5 mEq/L F 3.5-5.5 A/G RATIO 2025-07-03 14:57:10 1.3 Calc F 1.0-2.5 GLOBULIN 2025-07-03 14:57:10 2.4 g/dL F 0.9-5.0 Albumin [Mass/volume] in Serum or Plasma by Bromocresol green (BCG) dye binding method 2025-07-03 14:56:19 3.1 g/dL F 3.4-4.8 Bicarbonate [Moles/volume] in Serum or Plasma 2025-07-03 14:56:19 25 mEq/L F 20.0-31.0 Lactate dehydrogenase [Enzymatic activity/volume] in Serum or Plasma 2025-07-03 14:56:19 199 U/L F 120.0-246.0 Protein [Mass/volume] in Serum or Plasma 2025-07-03 14:56:19 5.5 g/dL F 5.7-8.2 Potassium [Moles/volume] in Serum or Plasma 2025-06-19 03:27:43 3.8 mEq/L F 3.5-5.5 Potassium [Moles/volume] in Serum or Plasma 2025-05-30 06:52:55 3.3 mEq/L F 3.5-5.5 Potassium [Moles/volume] in Serum or Plasma 2025-05-30 06:52:55 3.3 mEq/L F 3.5-5.5 A/G RATIO 2025-05-30 01:56:34 1.3 Calc F 1.0-2.5 GLOBULIN 2025-05-30 01:56:34 2.5 g/dL F 0.9-5.0 A/G RATIO 2025-05-30 01:56:34 1.3 Calc F 1.0-2.5 GLOBULIN 2025-05-30 01:56:34 2.5 g/dL F 0.9-5.0 Albumin [Mass/volume] in Serum or Plasma by Bromocresol green (BCG) dye binding method 2025-05-30 01:55:27 3.2 g/dL F 3.4-4.8 Bicarbonate [Moles/volume] in Serum or Plasma 2025-05-30 01:55:27 26 mEq/L F 20.0-31.0 Lactate dehydrogenase [Enzymatic activity/volume] in Serum or Plasma 2025-05-30 01:55:27 148 U/L F 120.0-246.0 Protein [Mass/volume] in Serum or Plasma 2025-05-30 01:55:27 5.7 g/dL F 5.7-8.2 Albumin [Mass/volume] in Serum or Plasma by Bromocresol green (BCG) dye binding method 2025-05-30 01:55:27 3.2 g/dL F 3.4-4.8 Bicarbonate [Moles/volume] in Serum or Plasma 2025-05-30 01:55:27 26 mEq/L F 20.0-31.0 Lactate dehydrogenase [Enzymatic activity/volume] in Serum or Plasma 2025-05-30 01:55:27 148 U/L F 120.0-246.0 Protein [Mass/volume] in Serum or Plasma 2025-05-30 01:55:27 5.7 g/dL F 5.7-8.2 Potassium [Moles/volume] in Serum or Plasma 2025-05-24 07:21:38 2.8 mEq/L F 3.5-5.5 Potassium [Moles/volume] in Serum or Plasma 2025-05-24 07:21:38 2.8 mEq/L F 3.5-5.5 Potassium [Moles/volume] in Serum or Plasma 2025-05-10 06:37:22 3.3 mEq/L F 3.5-5.5 Potassium [Moles/volume] in Serum or Plasma 2025-05-10 06:37:22 3.3 mEq/L F 3.5-5.5 Folate [Mass/volume] in Serum or Plasma 2025-05-10 04:47:35 5.7 ng/mL F See_Comment [Automated Lookback] The system which generated this result transmitted reference range: -5.5. The reference range was not used to interpret this result as normal/abnormal. Cobalamin (Vitamin B12) [Mass/volume] in Serum or Plasma 2025-05-10 04:47:35 411 pg/mL F 211.0-911.0 Folate [Mass/volume] in Serum or Plasma 2025-05-10 04:47:35 5.7 ng/mL F See_Comment [Automated Lookback] The system which generated this result transmitted reference range: -5.5. The reference range was not used to interpret this result as normal/abnormal. Cobalamin (Vitamin B12) [Mass/volume] in Serum or Plasma 2025-05-10 04:47:35 411 pg/mL F 211.0-911.0 A/G RATIO 2025-05-09 19:07:59 1.4 Calc F 1.0-2.5 GLOBULIN 2025-05-09 19:07:59 2.4 g/dL F 0.9-5.0 LDL-CHOLESTEROL 2025-05-09 19:07:59 30 mg/dL F 0.0-99.0 VLDL-CHOL(CALC) 2025-05-09 19:07:59 11 mg/dL F 0.0-29.0 CHOL/HDL RATIO 2025-05-09 19:07:59 2.6 Calc F 3.3-5.0 A/G RATIO 2025-05-09 19:07:59 1.4 Calc F 1.0-2.5 GLOBULIN 2025-05-09 19:07:59 2.4 g/dL F 0.9-5.0 LDL-CHOLESTEROL 2025-05-09 19:07:59 30 mg/dL F 0.0-99.0 VLDL-CHOL(CALC) 2025-05-09 19:07:59 11 mg/dL F 0.0-29.0 CHOL/HDL RATIO 2025-05-09 19:07:59 2.6 Calc F 3.3-5.0 Albumin [Mass/volume] in Serum or Plasma by Bromocresol green (BCG) dye binding method 2025-05-09 19:07:18 3.3 g/dL F 3.4-4.8 Cholesterol [Mass/volume] in Serum or Plasma 2025-05-09 19:07:18 66 mg/dL F 0.0-199.0 Bicarbonate [Moles/volume] in Serum or Plasma 2025-05-09 19:07:18 22 mEq/L F 20.0-31.0 Lactate dehydrogenase [Enzymatic activity/volume] in Serum or Plasma 2025-05-09 19:07:18 167 U/L F 120.0-246.0 Protein [Mass/volume] in Serum or Plasma 2025-05-09 19:07:18 55 mg/dL F 0.0-149.0 Protein [Mass/volume] in Serum or Plasma 2025-05-09 19:07:18 5.7 g/dL F 5.7-8.2 Cholesterol in HDL [Mass/volume] in Serum or Plasma 2025-05-09 19:07:18 25 mg/dL F 40.0-60.0 Albumin [Mass/volume] in Serum or Plasma by Bromocresol green (BCG) dye binding method 2025-05-09 19:07:18 3.3 g/dL F 3.4-4.8 Cholesterol [Mass/volume] in Serum or Plasma 2025-05-09 19:07:18 66 mg/dL F 0.0-199.0 Bicarbonate [Moles/volume] in Serum or Plasma 2025-05-09 19:07:18 22 mEq/L F 20.0-31.0 Lactate dehydrogenase [Enzymatic activity/volume] in Serum or Plasma 2025-05-09 19:07:18 167 U/L F 120.0-246.0 Protein [Mass/volume] in Serum or Plasma 2025-05-09 19:07:18 55 mg/dL F 0.0-149.0 Protein [Mass/volume] in Serum or Plasma 2025-05-09 19:07:18 5.7 g/dL F 5.7-8.2 Cholesterol in HDL [Mass/volume] in Serum or Plasma 2025-05-09 19:07:18 25 mg/dL F 40.0-60.0 Potassium [Moles/volume] in Serum or Plasma 2025-05-02 16:59:42 3.1 mEq/L F 3.5-5.1 Potassium [Moles/volume] in Serum or Plasma 2025-05-02 16:59:42 3.1 mEq/L F 3.5-5.1 Potassium [Moles/volume] in Serum or Plasma 2025-05-02 16:59:42 3.1 mEq/L F 3.5-5.1 A/G RATIO 2025-05-02 13:56:11 1.6 Calc F 1.0-2.5 GLOBULIN 2025-05-02 13:56:11 2.2 g/dL F 0.9-5.0 A/G RATIO 2025-05-02 13:56:11 1.6 Calc F 1.0-2.5 GLOBULIN 2025-05-02 13:56:11 2.2 g/dL F 0.9-5.0 A/G RATIO 2025-05-02 13:56:11 1.6 Calc F 1.0-2.5 GLOBULIN 2025-05-02 13:56:11 2.2 g/dL F 0.9-5.0 Albumin [Mass/volume] in Serum or Plasma by Bromocresol green (BCG) dye binding method 2025-05-02 13:55:22 3.5 g/dL F 3.2-4.8 Bicarbonate [Moles/volume] in Serum or Plasma 2025-05-02 13:55:22 26 mEq/L F 20.0-31.0 Lactate dehydrogenase [Enzymatic activity/volume] in Serum or Plasma 2025-05-02 13:55:22 168 U/L F 120.0-246.0 Protein [Mass/volume] in Serum or Plasma 2025-05-02 13:55:22 5.7 g/dL F 5.7-8.2 Albumin [Mass/volume] in Serum or Plasma by Bromocresol green (BCG) dye binding method 2025-05-02 13:55:22 3.5 g/dL F 3.2-4.8 Bicarbonate [Moles/volume] in Serum or Plasma 2025-05-02 13:55:22 26 mEq/L F 20.0-31.0 Lactate dehydrogenase [Enzymatic activity/volume] in Serum or Plasma 2025-05-02 13:55:22 168 U/L F 120.0-246.0 Protein [Mass/volume] in Serum or Plasma 2025-05-02 13:55:22 5.7 g/dL F 5.7-8.2 Albumin [Mass/volume] in Serum or Plasma by Bromocresol green (BCG) dye binding method 2025-05-02 13:55:22 3.5 g/dL F 3.2-4.8 Bicarbonate [Moles/volume] in Serum or Plasma 2025-05-02 13:55:22 26 mEq/L F 20.0-31.0 Lactate dehydrogenase [Enzymatic activity/volume] in Serum or Plasma 2025-05-02 13:55:22 168 U/L F 120.0-246.0 Protein [Mass/volume] in Serum or Plasma 2025-05-02 13:55:22 5.7 g/dL F 5.7-8.2 Potassium [Moles/volume] in Serum or Plasma 2025-03-19 20:20:54 4.1 mEq/L F 3.5-5.1 Folate [Mass/volume] in Serum or Plasma 2025-03-10 03:58:05 10.6 ng/mL F 5.5-16.0 Cobalamin (Vitamin B12) [Mass/volume] in Serum or Plasma 2025-03-10 03:58:05 409 pg/mL F 211.0-911.0 Potassium [Moles/volume] in Serum or Plasma 2025-02-28 23:35:52 3.8 mEq/L F 3.5-5.5 Potassium [Moles/volume] in Serum or Plasma 2025-02-28 23:35:52 3.8 mEq/L F 3.5-5.5 GLOBULIN 2025-02-28 19:44:13 2.3 g/dL F 0.9-5.0 A/G RATIO 2025-02-28 19:44:13 1.5 Calc F 1.0-2.5 GLOBULIN 2025-02-28 19:44:13 2.3 g/dL F 0.9-5.0 A/G RATIO 2025-02-28 19:44:13 1.5 Calc F 1.0-2.5 Protein [Mass/volume] in Serum or Plasma 2025-02-28 19:43:20 5.7 g/dL F 5.7-8.2 Bicarbonate [Moles/volume] in Serum or Plasma 2025-02-28 19:43:20 26 mEq/L F 20.0-31.0 Albumin [Mass/volume] in Serum or Plasma by Bromocresol green (BCG) dye binding method 2025-02-28 19:43:20 3.4 g/dL F 3.4-4.8 Lactate dehydrogenase [Enzymatic activity/volume] in Serum or Plasma 2025-02-28 19:43:20 154 U/L F 120.0-246.0 Lactate dehydrogenase [Enzymatic activity/volume] in Serum or Plasma 2025-02-28 19:43:20 154 U/L F 120.0-246.0 Bicarbonate [Moles/volume] in Serum or Plasma 2025-02-28 19:43:20 26 mEq/L F 20.0-31.0 Albumin [Mass/volume] in Serum or Plasma by Bromocresol green (BCG) dye binding method 2025-02-28 19:43:20 3.4 g/dL F 3.4-4.8 Protein [Mass/volume] in Serum or Plasma 2025-02-28 19:43:20 5.7 g/dL F 5.7-8.2 Potassium [Moles/volume] in Serum or Plasma 2025-01-22 20:31:23 3 mEq/L F 3.5-5.5 Potassium [Moles/volume] in Serum or Plasma 2025-01-22 20:31:23 3 mEq/L F 3.5-5.5 Potassium [Moles/volume] in Serum or Plasma 2025-01-22 20:31:23 3 mEq/L F 3.5-5.5 A/G RATIO 2025-01-22 13:05:54 1.4 Calc F 1.0-2.5 GLOBULIN 2025-01-22 13:05:54 2.5 g/dL F 0.9-5.0 GLOBULIN 2025-01-22 13:05:54 2.5 g/dL F 0.9-5.0 A/G RATIO 2025-01-22 13:05:54 1.4 Calc F 1.0-2.5 A/G RATIO 2025-01-22 13:05:54 1.4 Calc F 1.0-2.5 GLOBULIN 2025-01-22 13:05:54 2.5 g/dL F 0.9-5.0 Lactate dehydrogenase [Enzymatic activity/volume] in Serum or Plasma 2025-01-22 13:05:14 156 U/L F 120.0-246.0 Bicarbonate [Moles/volume] in Serum or Plasma 2025-01-22 13:05:14 27 mEq/L F 20.0-31.0 Albumin [Mass/volume] in Serum or Plasma by Bromocresol green (BCG) dye binding method 2025-01-22 13:05:14 3.6 g/dL F 3.4-4.8 Protein [Mass/volume] in Serum or Plasma 2025-01-22 13:05:14 6.1 g/dL F 5.7-8.2 Lactate dehydrogenase [Enzymatic activity/volume] in Serum or Plasma 2025-01-22 13:05:14 156 U/L F 120.0-246.0 Bicarbonate [Moles/volume] in Serum or Plasma 2025-01-22 13:05:14 27 mEq/L F 20.0-31.0 Albumin [Mass/volume] in Serum or Plasma by Bromocresol green (BCG) dye binding method 2025-01-22 13:05:14 3.6 g/dL F 3.4-4.8 Protein [Mass/volume] in Serum or Plasma 2025-01-22 13:05:14 6.1 g/dL F 5.7-8.2 Lactate dehydrogenase [Enzymatic activity/volume] in Serum or Plasma 2025-01-22 13:05:14 156 U/L F 120.0-246.0 Bicarbonate [Moles/volume] in Serum or Plasma 2025-01-22 13:05:14 27 mEq/L F 20.0-31.0 Albumin [Mass/volume] in Serum or Plasma by Bromocresol green (BCG) dye binding method 2025-01-22 13:05:14 3.6 g/dL F 3.4-4.8 Protein [Mass/volume] in Serum or Plasma 2025-01-22 13:05:14 6.1 g/dL F 5.7-8.2 Bicarbonate [Moles/volume] in Serum or Plasma 2025-01-11 18:36:39 25 mmol/L F 21-32 Potassium [Moles/volume] in Serum or Plasma 2025-01-11 18:36:39 2.9 mmol/L F 3.5-5.1 Albumin [Mass/volume] in Serum or Plasma by Bromocresol green (BCG) dye binding method 2025-01-11 18:36:39 3.5 g/dL F 3.4-5 Albumin [Mass/volume] in Serum or Plasma by Bromocresol green (BCG) dye binding method 2025-01-11 18:36:39 3.5 g/dL F 3.4-5 Potassium [Moles/volume] in Serum or Plasma 2025-01-11 18:36:39 2.9 mmol/L F 3.5-5.1 Bicarbonate [Moles/volume] in Serum or Plasma 2025-01-11 18:36:39 25 mmol/L F 21-32 Potassium [Moles/volume] in Serum or Plasma 2024-12-27 17:12:30 2.8 mEq/L F 3.5-5.5 Potassium [Moles/volume] in Serum or Plasma 2024-11-30 07:14:56 3 mEq/L F 3.5-5.5 Potassium [Moles/volume] in Serum or Plasma 2024-11-30 07:14:56 3 mEq/L F 3.5-5.5 A/G RATIO 2024-11-29 14:40:19 1.6 Calc F 1.0-2.5 GLOBULIN 2024-11-29 14:40:19 2.3 g/dL F 0.9-5.0 GLOBULIN 2024-11-29 14:40:19 2.3 g/dL F 0.9-5.0 A/G RATIO 2024-11-29 14:40:19 1.6 Calc F 1.0-2.5 Lactate dehydrogenase [Enzymatic activity/volume] in Serum or Plasma 2024-11-29 14:39:18 156 U/L F 120.0-246.0 Bicarbonate [Moles/volume] in Serum or Plasma 2024-11-29 14:39:18 28 mEq/L F 20.0-31.0 Albumin [Mass/volume] in Serum or Plasma by Bromocresol green (BCG) dye binding method 2024-11-29 14:39:18 3.7 g/dL F 3.4-4.8 Protein [Mass/volume] in Serum or Plasma 2024-11-29 14:39:18 6 g/dL F 5.7-8.2 Lactate dehydrogenase [Enzymatic activity/volume] in Serum or Plasma 2024-11-29 14:39:18 156 U/L F 120.0-246.0 Bicarbonate [Moles/volume] in Serum or Plasma 2024-11-29 14:39:18 28 mEq/L F 20.0-31.0 Albumin [Mass/volume] in Serum or Plasma by Bromocresol green (BCG) dye binding method 2024-11-29 14:39:18 3.7 g/dL F 3.4-4.8 Protein [Mass/volume] in Serum or Plasma 2024-11-29 14:39:18 6 g/dL F 5.7-8.2 Potassium [Moles/volume] in Serum or Plasma 2024-11-02 05:34:21 3.1 mEq/L F 3.5-5.5 Potassium [Moles/volume] in Serum or Plasma 2024-11-02 05:34:21 3.1 mEq/L F 3.5-5.5 Potassium [Moles/volume] in Serum or Plasma 2024-11-02 05:34:21 3.1 mEq/L F 3.5-5.5 GLOBULIN 2024-11-01 13:37:02 2.4 g/dL F 0.9-5.0 A/G RATIO 2024-11-01 13:37:02 1.4 Calc F 1.0-2.5 GLOBULIN 2024-11-01 13:37:02 2.4 g/dL F 0.9-5.0 A/G RATIO 2024-11-01 13:37:02 1.4 Calc F 1.0-2.5 GLOBULIN 2024-11-01 13:37:02 2.4 g/dL F 0.9-5.0 A/G RATIO 2024-11-01 13:37:02 1.4 Calc F 1.0-2.5 Lactate dehydrogenase [Enzymatic activity/volume] in Serum or Plasma 2024-11-01 13:36:15 174 U/L F 120.0-246.0 Bicarbonate [Moles/volume] in Serum or Plasma 2024-11-01 13:36:15 27 mEq/L F 20.0-31.0 Albumin [Mass/volume] in Serum or Plasma by Bromocresol green (BCG) dye binding method 2024-11-01 13:36:15 3.4 g/dL F 3.4-4.8 Protein [Mass/volume] in Serum or Plasma 2024-11-01 13:36:15 5.8 g/dL F 5.7-8.2 Lactate dehydrogenase [Enzymatic activity/volume] in Serum or Plasma 2024-11-01 13:36:15 174 U/L F 120.0-246.0 Bicarbonate [Moles/volume] in Serum or Plasma 2024-11-01 13:36:15 27 mEq/L F 20.0-31.0 Albumin [Mass/volume] in Serum or Plasma by Bromocresol green (BCG) dye binding method 2024-11-01 13:36:15 3.4 g/dL F 3.4-4.8 Protein [Mass/volume] in Serum or Plasma 2024-11-01 13:36:15 5.8 g/dL F 5.7-8.2 Lactate dehydrogenase [Enzymatic activity/volume] in Serum or Plasma 2024-11-01 13:36:15 174 U/L F 120.0-246.0 Bicarbonate [Moles/volume] in Serum or Plasma 2024-11-01 13:36:15 27 mEq/L F 20.0-31.0 Albumin [Mass/volume] in Serum or Plasma by Bromocresol green (BCG) dye binding method 2024-11-01 13:36:15 3.4 g/dL F 3.4-4.8 Protein [Mass/volume] in Serum or Plasma 2024-11-01 13:36:15 5.8 g/dL F 5.7-8.2 Potassium [Moles/volume] in Serum or Plasma 2024-10-05 20:04:41 3.2 mEq/L F 3.5-5.5 Potassium [Moles/volume] in Serum or Plasma 2024-10-05 20:04:41 3.2 mEq/L F 3.5-5.5 GLOBULIN 2024-10-05 14:31:36 2.3 g/dL F 0.9-5.0 A/G RATIO 2024-10-05 14:31:36 1.3 Calc F 1.0-2.5 GLOBULIN 2024-10-05 14:31:36 2.3 g/dL F 0.9-5.0 A/G RATIO 2024-10-05 14:31:36 1.3 Calc F 1.0-2.5 Lactate dehydrogenase [Enzymatic activity/volume] in Serum or Plasma 2024-10-05 14:30:23 172 U/L F 120.0-246.0 Bicarbonate [Moles/volume] in Serum or Plasma 2024-10-05 14:30:23 29 mEq/L F 20.0-31.0 Albumin [Mass/volume] in Serum or Plasma by Bromocresol green (BCG) dye binding method 2024-10-05 14:30:23 3.1 g/dL F 3.4-4.8 Protein [Mass/volume] in Serum or Plasma 2024-10-05 14:30:23 5.4 g/dL F 5.7-8.2 Lactate dehydrogenase [Enzymatic activity/volume] in Serum or Plasma 2024-10-05 14:30:23 172 U/L F 120.0-246.0 Bicarbonate [Moles/volume] in Serum or Plasma 2024-10-05 14:30:23 29 mEq/L F 20.0-31.0 Albumin [Mass/volume] in Serum or Plasma by Bromocresol green (BCG) dye binding method 2024-10-05 14:30:23 3.1 g/dL F 3.4-4.8 Protein [Mass/volume] in Serum or Plasma 2024-10-05 14:30:23 5.4 g/dL F 5.7-8.2 Potassium [Moles/volume] in Serum or Plasma 2024-09-02 06:43:33 4.8 mEq/L F 3.5-5.5 Potassium [Moles/volume] in Serum or Plasma 2024-09-02 06:43:33 4.8 mEq/L F 3.5-5.5 GLOBULIN 2024-09-01 19:24:03 2.3 g/dL F 0.9-5.0 A/G RATIO 2024-09-01 19:24:03 1.4 Calc F 1.0-2.5 GLOBULIN 2024-09-01 19:24:03 2.3 g/dL F 0.9-5.0 A/G RATIO 2024-09-01 19:24:03 1.4 Calc F 1.0-2.5 Lactate dehydrogenase [Enzymatic activity/volume] in Serum or Plasma 2024-09-01 19:23:14 157 U/L F 120.0-246.0 Bicarbonate [Moles/volume] in Serum or Plasma 2024-09-01 19:23:14 25 mEq/L F 20.0-31.0 Albumin [Mass/volume] in Serum or Plasma by Bromocresol green (BCG) dye binding method 2024-09-01 19:23:14 3.3 g/dL F 3.4-4.8 Protein [Mass/volume] in Serum or Plasma 2024-09-01 19:23:14 5.6 g/dL F 5.7-8.2 Lactate dehydrogenase [Enzymatic activity/volume] in Serum or Plasma 2024-09-01 19:23:14 157 U/L F 120.0-246.0 Bicarbonate [Moles/volume] in Serum or Plasma 2024-09-01 19:23:14 25 mEq/L F 20.0-31.0 Albumin [Mass/volume] in Serum or Plasma by Bromocresol green (BCG) dye binding method 2024-09-01 19:23:14 3.3 g/dL F 3.4-4.8 Protein [Mass/volume] in Serum or Plasma 2024-09-01 19:23:14 5.6 g/dL F 5.7-8.2 Cobalamin (Vitamin B12) [Mass/volume] in Serum or Plasma 2024-08-12 06:30:33 261 pg/mL F 211.0-911.0 Folate [Mass/volume] in Serum or Plasma 2024-08-12 06:30:33 8.8 ng/mL F 5.5-16.0 Potassium [Moles/volume] in Serum or Plasma 2024-08-12 06:00:06 3.7 mEq/L F 3.5-5.5 GLOBULIN 2024-08-11 16:37:28 2.2 g/dL F 0.9-5.0 A/G RATIO 2024-08-11 16:37:28 1.5 Calc F 1.0-2.5 Lactate dehydrogenase [Enzymatic activity/volume] in Serum or Plasma 2024-08-11 16:36:22 146 U/L F 120.0-246.0 Bicarbonate [Moles/volume] in Serum or Plasma 2024-08-11 16:36:22 30 mEq/L F 20.0-31.0 Albumin [Mass/volume] in Serum or Plasma by Bromocresol green (BCG) dye binding method 2024-08-11 16:36:22 3.3 g/dL F 3.4-4.8 Protein [Mass/volume] in Serum or Plasma 2024-08-11 16:36:22 5.5 g/dL F 5.7-8.2 CHOL/HDL RATIO 2024-08-10 15:12:09 3.1 Calc F 3.3-5.0 LDL-CHOLESTEROL 2024-08-10 13:53:06 36 mg/dL F 0.0-99.0 VLDL-CHOL(CALC) 2024-08-10 13:53:06 23 mg/dL F 0.0-29.0 Protein [Mass/volume] in Serum or Plasma 2024-08-10 13:52:10 113 mg/dL F 0.0-149.0 Cholesterol [Mass/volume] in Serum or Plasma 2024-08-10 13:52:10 87 mg/dL F 0.0-199.0 Cholesterol in HDL [Mass/volume] in Serum or Plasma 2024-08-10 13:52:10 28 mg/dL F 40.0-60.0 GLOBULIN 2024-08-10 08:36:41 F Canceled - Speci men not received 5 days past draw date A/G RATIO 2024-08-10 08:36:41 F Canceled - Speci men not received 5 days past draw date Cobalamin (Vitamin B12) [Mass/volume] in Serum or Plasma 2024-08-10 08:23:29 F Canceled - Speci men not received 5 days past draw date Folate [Mass/volume] in Serum or Plasma 2024-08-10 08:23:29 F Canceled - Speci men not received 5 days past draw date Protein [Mass/volume] in Serum or Plasma 2024-08-10 08:23:28 F Canceled - Speci men not received 5 days past draw date Lactate dehydrogenase [Enzymatic activity/volume] in Serum or Plasma 2024-08-10 08:23:28 F Canceled - Speci men not received 5 days past draw date Albumin [Mass/volume] in Serum or Plasma by Bromocresol green (BCG) dye binding method 2024-08-10 08:23:28 F Canceled - Speci men not received 5 days past draw date Bicarbonate [Moles/volume] in Serum or Plasma 2024-08-10 08:23:28 F Canceled - Speci men not received 5 days past draw date Potassium [Moles/volume] in Serum or Plasma 2024-08-10 08:23:28 F Canceled - Speci men not received 5 days past draw date LDL-CHOLESTEROL 2024-08-06 08:33:34 F Canceled - Speci men not received 5 days past draw date VLDL-CHOL(CALC) 2024-08-06 08:33:34 F Canceled - Speci men not received 5 days past draw date CHOL/HDL RATIO 2024-08-06 08:33:34 F Canceled - Speci men not received 5 days past draw date Cholesterol [Mass/volume] in Serum or Plasma 2024-08-06 08:22:09 F Canceled - Speci men not received 5 days past draw date Protein [Mass/volume] in Serum or Plasma 2024-08-06 08:22:09 F Canceled - Speci men not received 5 days past draw date Cholesterol in HDL [Mass/volume] in Serum or Plasma 2024-08-06 08:22:09 F Canceled - Speci men not received 5 days past draw date Potassium [Moles/volume] in Serum or Plasma 2024-07-05 07:15:39 4.6 mEq/L F 3.5-5.5 Potassium [Moles/volume] in Serum or Plasma 2024-07-05 07:15:39 4.6 mEq/L F 3.5-5.5 GLOBULIN 2024-07-05 01:26:08 2.5 g/dL F 0.9-5.0 A/G RATIO 2024-07-05 01:26:08 1.5 Calc F 1.0-2.5 GLOBULIN 2024-07-05 01:26:08 2.5 g/dL F 0.9-5.0 A/G RATIO 2024-07-05 01:26:08 1.5 Calc F 1.0-2.5 Lactate dehydrogenase [Enzymatic activity/volume] in Serum or Plasma 2024-07-05 01:25:42 195 U/L F 120.0-246.0 Bicarbonate [Moles/volume] in Serum or Plasma 2024-07-05 01:25:42 25 mEq/L F 20.0-31.0 Albumin [Mass/volume] in Serum or Plasma by Bromocresol green (BCG) dye binding method 2024-07-05 01:25:42 3.7 g/dL F 3.4-4.8 Protein [Mass/volume] in Serum or Plasma 2024-07-05 01:25:42 6.2 g/dL F 5.7-8.2 Glucose [Mass/volume] in Serum or Plasma 2024-07-05 01:25:42 140 mg/dL F 70.0-99.0 Lactate dehydrogenase [Enzymatic activity/volume] in Serum or Plasma 2024-07-05 01:25:42 195 U/L F 120.0-246.0 Bicarbonate [Moles/volume] in Serum or Plasma 2024-07-05 01:25:42 25 mEq/L F 20.0-31.0 Albumin [Mass/volume] in Serum or Plasma by Bromocresol green (BCG) dye binding method 2024-07-05 01:25:42 3.7 g/dL F 3.4-4.8 Protein [Mass/volume] in Serum or Plasma 2024-07-05 01:25:42 6.2 g/dL F 5.7-8.2 Glucose [Mass/volume] in Serum or Plasma 2024-07-05 01:25:42 140 mg/dL F 70.0-99.0 Potassium [Moles/volume] in Serum or Plasma 2024-06-08 17:45:01 3.7 mEq/L F 3.5-5.5 Potassium [Moles/volume] in Serum or Plasma 2024-06-08 17:45:01 3.7 mEq/L F 3.5-5.5 Potassium [Moles/volume] in Serum or Plasma 2024-06-08 17:45:01 3.7 mEq/L F 3.5-5.5 GLOBULIN 2024-06-08 15:32:02 2.2 g/dL F 0.9-5.0 A/G RATIO 2024-06-08 15:32:02 1.5 Calc F 1.0-2.5 GLOBULIN 2024-06-08 15:32:02 2.2 g/dL F 0.9-5.0 A/G RATIO 2024-06-08 15:32:02 1.5 Calc F 1.0-2.5 GLOBULIN 2024-06-08 15:32:02 2.2 g/dL F 0.9-5.0 A/G RATIO 2024-06-08 15:32:02 1.5 Calc F 1.0-2.5 Lactate dehydrogenase [Enzymatic activity/volume] in Serum or Plasma 2024-06-08 15:31:19 222 U/L F 120.0-246.0 Bicarbonate [Moles/volume] in Serum or Plasma 2024-06-08 15:31:19 21 mEq/L F 20.0-31.0 Albumin [Mass/volume] in Serum or Plasma by Bromocresol green (BCG) dye binding method 2024-06-08 15:31:19 3.4 g/dL F 3.4-4.8 Protein [Mass/volume] in Serum or Plasma 2024-06-08 15:31:19 5.6 g/dL F 5.7-8.2 Glucose [Mass/volume] in Serum or Plasma 2024-06-08 15:31:19 150 mg/dL F 70.0-99.0 Lactate dehydrogenase [Enzymatic activity/volume] in Serum or Plasma 2024-06-08 15:31:19 222 U/L F 120.0-246.0 Bicarbonate [Moles/volume] in Serum or Plasma 2024-06-08 15:31:19 21 mEq/L F 20.0-31.0 Albumin [Mass/volume] in Serum or Plasma by Bromocresol green (BCG) dye binding method 2024-06-08 15:31:19 3.4 g/dL F 3.4-4.8 Glucose [Mass/volume] in Serum or Plasma 2024-06-08 15:31:19 150 mg/dL F 70.0-99.0 Protein [Mass/volume] in Serum or Plasma 2024-06-08 15:31:19 5.6 g/dL F 5.7-8.2 Lactate dehydrogenase [Enzymatic activity/volume] in Serum or Plasma 2024-06-08 15:31:19 222 U/L F 120.0-246.0 Bicarbonate [Moles/volume] in Serum or Plasma 2024-06-08 15:31:19 21 mEq/L F 20.0-31.0 Albumin [Mass/volume] in Serum or Plasma by Bromocresol green (BCG) dye binding method 2024-06-08 15:31:19 3.4 g/dL F 3.4-4.8 Protein [Mass/volume] in Serum or Plasma 2024-06-08 15:31:19 5.6 g/dL F 5.7-8.2 Glucose [Mass/volume] in Serum or Plasma 2024-06-08 15:31:19 150 mg/dL F 70.0-99.0 Potassium [Moles/volume] in Serum or Plasma 2024-05-03 06:49:39 4.3 mEq/L F 3.5-5.5 Potassium [Moles/volume] in Serum or Plasma 2024-05-03 06:49:39 4.3 mEq/L F 3.5-5.5 VLDL-CHOL(CALC) 2024-05-02 21:33:40 25 mg/dL F 0.0-29.0 LDL-CHOLESTEROL 2024-05-02 21:33:40 28 mg/dL F 0.0-99.0 GLOBULIN 2024-05-02 21:33:40 2.1 g/dL F 0.9-5.0 A/G RATIO 2024-05-02 21:33:40 1.8 Calc F 1.0-2.5 CHOL/HDL RATIO 2024-05-02 21:33:40 3.1 Calc F 3.3-5.0 VLDL-CHOL(CALC) 2024-05-02 21:33:40 25 mg/dL F 0.0-29.0 LDL-CHOLESTEROL 2024-05-02 21:33:40 28 mg/dL F 0.0-99.0 GLOBULIN 2024-05-02 21:33:40 2.1 g/dL F 0.9-5.0 A/G RATIO 2024-05-02 21:33:40 1.8 Calc F 1.0-2.5 CHOL/HDL RATIO 2024-05-02 21:33:40 3.1 Calc F 3.3-5.0 Protein [Mass/volume] in Serum or Plasma 2024-05-02 21:32:35 123 mg/dL F 0.0-149.0 Cholesterol [Mass/volume] in Serum or Plasma 2024-05-02 21:32:35 78 mg/dL F 0.0-199.0 Lactate dehydrogenase [Enzymatic activity/volume] in Serum or Plasma 2024-05-02 21:32:35 133 U/L F 120.0-246.0 Bicarbonate [Moles/volume] in Serum or Plasma 2024-05-02 21:32:35 27 mEq/L F 20.0-31.0 Albumin [Mass/volume] in Serum or Plasma by Bromocresol green (BCG) dye binding method 2024-05-02 21:32:35 3.7 g/dL F 3.4-4.8 Cholesterol in HDL [Mass/volume] in Serum or Plasma 2024-05-02 21:32:35 25 mg/dL F 40.0-60.0 Protein [Mass/volume] in Serum or Plasma 2024-05-02 21:32:35 5.8 g/dL F 5.7-8.2 Glucose [Mass/volume] in Serum or Plasma 2024-05-02 21:32:35 141 mg/dL F 70.0-99.0 Protein [Mass/volume] in Serum or Plasma 2024-05-02 21:32:35 123 mg/dL F 0.0-149.0 Cholesterol [Mass/volume] in Serum or Plasma 2024-05-02 21:32:35 78 mg/dL F 0.0-199.0 Lactate dehydrogenase [Enzymatic activity/volume] in Serum or Plasma 2024-05-02 21:32:35 133 U/L F 120.0-246.0 Bicarbonate [Moles/volume] in Serum or Plasma 2024-05-02 21:32:35 27 mEq/L F 20.0-31.0 Albumin [Mass/volume] in Serum or Plasma by Bromocresol green (BCG) dye binding method 2024-05-02 21:32:35 3.7 g/dL F 3.4-4.8 Cholesterol in HDL [Mass/volume] in Serum or Plasma 2024-05-02 21:32:35 25 mg/dL F 40.0-60.0 Protein [Mass/volume] in Serum or Plasma 2024-05-02 21:32:35 5.8 g/dL F 5.7-8.2 Glucose [Mass/volume] in Serum or Plasma 2024-05-02 21:32:35 141 mg/dL F 70.0-99.0 Potassium [Moles/volume] in Serum or Plasma 2024-03-30 07:17:39 3.3 mEq/L F 3.5-5.5 Potassium [Moles/volume] in Serum or Plasma 2024-03-30 07:17:39 3.3 mEq/L F 3.5-5.5 Potassium [Moles/volume] in Serum or Plasma 2024-03-30 07:17:39 3.3 mEq/L F 3.5-5.5 GLOBULIN 2024-03-30 03:53:59 2.2 g/dL F 0.9-5.0 A/G RATIO 2024-03-30 03:53:59 1.6 Calc F 1.0-2.5 GLOBULIN 2024-03-30 03:53:59 2.2 g/dL F 0.9-5.0 A/G RATIO 2024-03-30 03:53:59 1.6 Calc F 1.0-2.5 GLOBULIN 2024-03-30 03:53:59 2.2 g/dL F 0.9-5.0 A/G RATIO 2024-03-30 03:53:59 1.6 Calc F 1.0-2.5 Lactate dehydrogenase [Enzymatic activity/volume] in Serum or Plasma 2024-03-30 03:53:37 126 U/L F 120.0-246.0 Bicarbonate [Moles/volume] in Serum or Plasma 2024-03-30 03:53:37 27 mEq/L F 20.0-31.0 Albumin [Mass/volume] in Serum or Plasma by Bromocresol green (BCG) dye binding method 2024-03-30 03:53:37 3.6 g/dL F 3.4-4.8 Protein [Mass/volume] in Serum or Plasma 2024-03-30 03:53:37 5.8 g/dL F 5.7-8.2 Glucose [Mass/volume] in Serum or Plasma 2024-03-30 03:53:37 118 mg/dL F 70.0-99.0 Lactate dehydrogenase [Enzymatic activity/volume] in Serum or Plasma 2024-03-30 03:53:37 126 U/L F 120.0-246.0 Bicarbonate [Moles/volume] in Serum or Plasma 2024-03-30 03:53:37 27 mEq/L F 20.0-31.0 Albumin [Mass/volume] in Serum or Plasma by Bromocresol green (BCG) dye binding method 2024-03-30 03:53:37 3.6 g/dL F 3.4-4.8 Protein [Mass/volume] in Serum or Plasma 2024-03-30 03:53:37 5.8 g/dL F 5.7-8.2 Glucose [Mass/volume] in Serum or Plasma 2024-03-30 03:53:37 118 mg/dL F 70.0-99.0 Lactate dehydrogenase [Enzymatic activity/volume] in Serum or Plasma 2024-03-30 03:53:37 126 U/L F 120.0-246.0 Bicarbonate [Moles/volume] in Serum or Plasma 2024-03-30 03:53:37 27 mEq/L F 20.0-31.0 Albumin [Mass/volume] in Serum or Plasma by Bromocresol green (BCG) dye binding method 2024-03-30 03:53:37 3.6 g/dL F 3.4-4.8 Protein [Mass/volume] in Serum or Plasma 2024-03-30 03:53:37 5.8 g/dL F 5.7-8.2 Glucose [Mass/volume] in Serum or Plasma 2024-03-30 03:53:37 118 mg/dL F 70.0-99.0 Potassium [Moles/volume] in Serum or Plasma 2024-03-01 06:40:37 3.7 mEq/L F 3.5-5.5 GLOBULIN 2024-02-29 17:03:44 2.2 g/dL F 0.9-5.0 A/G RATIO 2024-02-29 17:03:44 1.5 Calc F 1.0-2.5 Lactate dehydrogenase [Enzymatic activity/volume] in Serum or Plasma 2024-02-29 17:02:39 148 U/L F 120.0-246.0 Bicarbonate [Moles/volume] in Serum or Plasma 2024-02-29 17:02:39 25 mEq/L F 20.0-31.0 Albumin [Mass/volume] in Serum or Plasma by Bromocresol green (BCG) dye binding method 2024-02-29 17:02:39 3.3 g/dL F 3.4-4.8 Protein [Mass/volume] in Serum or Plasma 2024-02-29 17:02:39 5.5 g/dL F 5.7-8.2 Glucose [Mass/volume] in Serum or Plasma 2024-02-29 17:02:39 106 mg/dL F 70.0-99.0 Potassium [Moles/volume] in Serum or Plasma 2024-02-04 04:07:43 3.6 mEq/L F 3.5-5.5 A/G RATIO 2024-02-03 19:48:55 1.5 Calc F 1.0-2.5 GLOBULIN 2024-02-03 19:48:55 2.4 g/dL F 0.9-5.0 Lactate dehydrogenase [Enzymatic activity/volume] in Serum or Plasma 2024-02-03 19:48:32 146 U/L F 120.0-246.0 Bicarbonate [Moles/volume] in Serum or Plasma 2024-02-03 19:48:32 26 mEq/L F 20.0-31.0 Albumin [Mass/volume] in Serum or Plasma by Bromocresol green (BCG) dye binding method 2024-02-03 19:48:32 3.5 g/dL F 3.4-4.8 Protein [Mass/volume] in Serum or Plasma 2024-02-03 19:48:32 5.9 g/dL F 5.7-8.2 Glucose [Mass/volume] in Serum or Plasma 2024-02-03 19:48:32 92 mg/dL F 70.0-99.0 Potassium [Moles/volume] in Serum or Plasma 2024-01-19 04:08:41 3.7 mEq/L F 3.5-5.5 Potassium [Moles/volume] in Serum or Plasma 2024-01-19 04:08:41 3.7 mEq/L F 3.5-5.5 Cobalamin (Vitamin B12) [Mass/volume] in Serum or Plasma 2024-01-19 02:19:03 586 pg/mL F 211.0-911.0 Folate [Mass/volume] in Serum or Plasma 2024-01-19 02:19:03 24 ng/mL F 5.5-16.0 Cobalamin (Vitamin B12) [Mass/volume] in Serum or Plasma 2024-01-19 02:19:03 586 pg/mL F 211.0-911.0 Folate [Mass/volume] in Serum or Plasma 2024-01-19 02:19:03 24 ng/mL F 5.5-16.0 VLDL-CHOL(CALC) 2024-01-18 21:14:24 43 mg/dL F 0.0-29.0 LDL-CHOLESTEROL 2024-01-18 21:14:24 17 mg/dL F 0.0-99.0 GLOBULIN 2024-01-18 21:14:24 2.3 g/dL F 0.9-5.0 A/G RATIO 2024-01-18 21:14:24 1.5 Calc F 1.0-2.5 CHOL/HDL RATIO 2024-01-18 21:14:24 3 Calc F 3.3-5.0 VLDL-CHOL(CALC) 2024-01-18 21:14:24 43 mg/dL F 0.0-29.0 LDL-CHOLESTEROL 2024-01-18 21:14:24 17 mg/dL F 0.0-99.0 GLOBULIN 2024-01-18 21:14:24 2.3 g/dL F 0.9-5.0 A/G RATIO 2024-01-18 21:14:24 1.5 Calc F 1.0-2.5 CHOL/HDL RATIO 2024-01-18 21:14:24 3 Calc F 3.3-5.0 Protein [Mass/volume] in Serum or Plasma 2024-01-18 21:13:35 217 mg/dL F 0.0-149.0 Cholesterol [Mass/volume] in Serum or Plasma 2024-01-18 21:13:35 90 mg/dL F 0.0-199.0 Lactate dehydrogenase [Enzymatic activity/volume] in Serum or Plasma 2024-01-18 21:13:35 214 U/L F 120.0-246.0 Bicarbonate [Moles/volume] in Serum or Plasma 2024-01-18 21:13:35 27 mEq/L F 20.0-31.0 Albumin [Mass/volume] in Serum or Plasma by Bromocresol green (BCG) dye binding method 2024-01-18 21:13:35 3.5 g/dL F 3.4-4.8 Cholesterol in HDL [Mass/volume] in Serum or Plasma 2024-01-18 21:13:35 30 mg/dL F 40.0-60.0 Protein [Mass/volume] in Serum or Plasma 2024-01-18 21:13:35 5.8 g/dL F 5.7-8.2 Glucose [Mass/volume] in Serum or Plasma 2024-01-18 21:13:35 90 mg/dL F 70.0-99.0 Cholesterol [Mass/volume] in Serum or Plasma 2024-01-18 21:13:35 90 mg/dL F 0.0-199.0 Protein [Mass/volume] in Serum or Plasma 2024-01-18 21:13:35 217 mg/dL F 0.0-149.0 Lactate dehydrogenase [Enzymatic activity/volume] in Serum or Plasma 2024-01-18 21:13:35 214 U/L F 120.0-246.0 Bicarbonate [Moles/volume] in Serum or Plasma 2024-01-18 21:13:35 27 mEq/L F 20.0-31.0 Albumin [Mass/volume] in Serum or Plasma by Bromocresol green (BCG) dye binding method 2024-01-18 21:13:35 3.5 g/dL F 3.4-4.8 Cholesterol in HDL [Mass/volume] in Serum or Plasma 2024-01-18 21:13:35 30 mg/dL F 40.0-60.0 Protein [Mass/volume] in Serum or Plasma 2024-01-18 21:13:35 5.8 g/dL F 5.7-8.2 Glucose [Mass/volume] in Serum or Plasma 2024-01-18 21:13:35 90 mg/dL F 70.0-99.0 Encounters No encounter information to report Immunizations Ordered Immunization Name Filled Immunization Name Date Status Comments Refusal Reason TST-PPD intradermal 2025-05-08 17:21:27 TST-PPD intradermal 2024-01-25 15:26:03 Pneumococcal conjugate PCV20, polysaccharide [id number] conjugate, adjuvant, PF 2024-01-25 15:25:18 TB RAQ 2024-01-09 04:00:00 TB Skin Test 2024-01-09 04:00:00 Influenza Vaccination 2023-07-15 04:00:00 TB RAQ 2022-10-08 05:00:00 TB Skin Test 2022-10-08 05:00:00 Hep B, adult 2022-07-21 04:00:00 Influenza Vaccination 2022-06-28 04:00:00 Hep B, adult 2022-06-23 04:00:00 Hep B, adult 2022-05-26 04:00:00 TB Skin Test 2021-11-30 04:00:00 Influenza Vaccination 2021-07-13 04:00:00 Covid-19 Vaccination 2021-03-05 08:00:00 Covid-19 Vaccination 2021-02-05 08:00:00 Pneumococcal Vaccination 2019-02-17 04:00:00 Plan of Treatment Planned Activity Provider Planned Date Details Commen ts Diagnostic Test Pending Swapna Rao 2025-01-23 05:57:02 Reticulocytes/100 erythrocytes in Blood by Automated count [code = 35202-2] Diagnostic Test Pending Swapna Rao 2024-11-20 06:35:51 Hemoglobin [Mass/volume] in Blood [code = 718-7] Diagnostic Test Pending Eleazar Roberson 2024-11-30 04:00:00 Hemoglobin A1c/Hemoglobin.total in Blood [code = 4548-4] Diagnostic Test Pending Bradleypat Suero 2024-07-30 05:00:00 Potassium [Moles/volume] in Serum or Plasma [code = 2823-3] Diagnostic Test Pending Bradley Wrightvvadi 2024-07-30 06:36:15 Alanine aminotransferase [Enzymatic activity/volume] in Serum or Plasma [code = 1742-6] Diagnostic Test Pending Nel Pereira 2024-10-20 05:00:00 Ferritin [Mass/volume] in Serum or Plasma [code = 2276-4] Diagnostic Test Pending Bradley Suero 2024-07-30 05:00:00 Sodium [Moles/volume] in Serum or Plasma [code = 2951-2] Diagnostic Test Pending Bradley Nimo 2024-07-30 05:00:00 Creatinine [Mass/volume] in Serum or Plasma [code = 2160-0] Diagnostic Test Pending Bradley Nimo 2024-07-30 05:00:00 Transferrin [Mass/volume] in Serum or Plasma [code = 3034-6] Diagnostic Test Pending Bradley Nimo 2024-07-30 05:00:00 Folate [Mass/volume] in Serum or Plasma [code = 2284-8] Diagnostic Test Pending Bradley Nimo 2024-07-17 05:35:53 Parathyrin.intact [Mass/volume] in Serum or Plasma [code = 2731-8] Diagnostic Test Pending Swapna Combsdy 2025-01-23 05:57:[address] [code = 2265] Diagnostic Test Pending Swapna Combsdy 2025-03-01 05:41:14 Ferritin [Mass/volume] in Serum or Plasma [code = 2276-4] Diagnostic Test Pending Bradley Suero 2024-07-30 05:00:00 Cobalamin (Vitamin B12) [Mass/volume] in Serum or Plasma [code = 2132-9] Diagnostic Test Pending Tiny Summers 2025-07-20 04:00:00 Ferritin [Mass/volume] in Serum or Plasma [code = 2276-4] Diagnostic Test Pending Rafael Ayach 2025-05-09 05:43:41 Reticulocytes/100 erythrocytes in Blood by Automated count [code = 39083-5] Diagnostic Test Pending Rafael Ayach 2025-07-15 04:00:00 Calcium [Mass/volume] in Serum or Plasma [code = 78561-9] Diagnostic Test Pending Rafael Ayach 2025-06-20 05:44:51 Ferritin [Mass/volume] in Serum or Plasma [code = 2276-4] Diagnostic Test Pending Rafael Ayach 2025-05-09 05:43:41 Hemoglobin [Mass/volume] in Blood [code = 718-7] Diagnostic Test Pending Ta Ayach 2025-05-08 05:42:18 Alanine aminotransferase [Enzymatic activity/volume] in Serum or Plasma [code = 1742-6] Diagnostic Test Pending Ta Ayach 2025-05-07 18:56:38 Cobalamin (Vitamin B12) [Mass/volume] in Serum or Plasma [code = 2132-9] Diagnostic Test Pending Ta Ayach 2025-05-07 18:56:05 Potassium [Moles/volume] in Serum or Plasma [code = 2823-3] Diagnostic Test Pending Taha Ayach 2025-05-09 05:43:[address] [code = 2265] Diagnostic Test Pending Ta Ayach 2025-05-07 18:44:36 Creatinine [Mass/volume] in Serum or Plasma [code = 2160-0] Diagnostic Test Pending Ta Ayach 2025-05-07 18:44:10 Aluminum [Mass/volume] in Serum or Plasma [code = 5574-9] Diagnostic Test Pending Ta Ayach 2025-05-07 18:45:06 Folate [Mass/volume] in Serum or Plasma [code = 2284-8] Diagnostic Test Pending Ta Ayach 2025-05-07 18:56:31 Sodium [Moles/volume] in Serum or Plasma [code = 2951-2] Diagnostic Test Pending Ta Ayach 2025-05-07 18:56:45 25-Hydroxyvitamin D3+25-Hydroxyvitamin D2 [Mass/volume] in Serum or Plasma [code = 53578-5] Diagnostic Test Pending [facility] Ayach 2025-05-08 05:42:38 Parathyrin.intact [Mass/volume] in Serum or Plasma [code = 2731-8] Diagnostic Test Pending [facility] Ayach 2025-07-18 05:58:[address] [code = 2265] Diagnostic Test Pending [facility] Ayach 2025-07-18 05:58:10 Reticulocytes/100 erythrocytes in Blood by Automated count [code = 65202-7] Diagnostic Test Pending [facility] 2025-06-24 16:34:14 In-Center Hemodialysis Treatment [code = TOD275] Diagnostic Test Pending [facility] 2025-03-22 20:33:30 In-Center Hemodialysis Treatment [code = QZZ844] Diagnostic Test Pending Jennie Menjivar [facility] 2025-02-13 21:34:47 In-Center Hemodialysis Treatment [code = LBK244] Diet Order [facility] May 27, 2025 Diet Calorie 40 kcal/kg Fluid Value 1200 mL/d Phosphorus Value 1000 mg/d Potassium Value 2000 mg/d Protein Value 1.4 gm/kg Sodium Value 2000 mg/d Calculated Weight 63 kg dietary_diet_modification Carb Controlle d; [facility]ation Value Diet Calorie 30 kcal/kg Fluid Value 1000 mL/d Phosphorus Value 1000 mg/d Potassium Value 2000 mg/d Protein Value 1.4 gm/kg Sodium Value 2000 mg/d Calculated Weight 59 kg
[2025-07-22 01:34] LABS: Lactate Venous 1.6 mmol/L (0.4-2.0); VBG HCO3 28.2 mmol/L (23-30); VBG PH 7.27 mmol/L (7.31-7.41); VBG PO2 37.4 mmol/L (28-40)
--- OUTSIDE RECORDS SUMMARY | 2025-07-22 01:34 | XMS_ITS | Clinical Summary ---
Author Organization [facility] Address [address] [place] [address] Care Team Providers Care Gravity Prospecting Operator Name Role Phone Osmani Becker MD Primary Care Provider [phone] Allergies Active Allergy Reactions Criticality Noted Date [...] HEPATITIS C SCREENING Completed 06/24/2024, 024 Insurance [facility] [facility] MEDICARE REPLACEMENT Care Teams Gravity Prospecting Operator Relationship Specialty Start Date End Date Osmani Becker MD [address] [facility] [address] [place] [address] PCP - General Internal Medicine 07/30/16
[2025-07-22 01:44] LABS: Hematocrit 30.7 % (37.0-47.0); Hemoglobin 8.7 g/dL (12.2-16.2); Immature Granulocytes % 0.5 %; Mean Corpuscular HGB Conc 28.3 g/dL (31.8-35.4); Mean Corpuscular Hemoglobin 29.0 pg (27.0-31.2); Mean Corpuscular Volume 102.3 fl (81-99); Nucleated Red Blood Cells % 0.3 %; Platelet Count 73 K/mm3 (142-424); Red Blood Count 3.00 M/mm3 (4.20-5.40); Red Cell Distribution Width-SD 70.9 fL; White Blood Count 6.5 K/mm3 (4.8-10.8)
[2025-07-22 01:46] LABS: Adenovirus,PCR Not Detected (NotDetected); Chlamydophila Pneumoniae, PCR Not Detected (NotDetected); Coronavirus 19, PCR Not Detected (NotDetected); Coronovirus HKU1,PCR Not Detected (NotDetected); Influenza A, PCR Not Detected (NotDetected); Influenza AH1, 2009 Not Detected (NotDetected); Influenza AH1, PCR Not Detected (NotDetected); Influenza AH3,PCR Not Detected (NotDetected); Influenza B, PCR Not Detected (NotDetected); Mycoplasma Pneumoniae, PCR Not Detected (NotDetected); Parainfluenza 1, PCR Not Detected (NotDetected); Parainfluenza 2, PCR Not Detected (NotDetected); Parainfluenza 3, PCR Not Detected (NotDetected); Parainfluenza 4, PCR Not Detected (NotDetected)
[2025-07-22] MEDS: ONDANSETRON 4MG/2ML VIAL 4 MG IV (01:46)
[2025-07-22] MEDS: IPRATROPIUM/ALBUTEROL 3 ML NEB 9 ML IH (01:46)
[2025-07-22 01:47] LABS: Albumin Level 4.5 g/dl (3.5-5.0)
[2025-07-22 01:48] LABS: Chloride 98 mmol/L (98-107); Potassium 4.6 mmoL/L (3.5-5.1); Sodium 144 mmol/L (136-145)
[2025-07-22 01:50] LABS: Alanine Aminotransferase 29 U/L (12-78); Albumin/Globulin Ratio 1.7 (1.1-1.8); Alkaline Phosphatase 247 U/L (38-126); Anion Gap 19.6 mEq/L (5-15); Aspartate Amino Transferase 25 U/L (14-36); Bilirubin,Total 0.8 mg/dl (0.2-1.3); Carbon Dioxide 31 mmol/L (22.0-30.0); Globulin 2.6 g/dL (1.3-3.2); Total Protein,Serum 7.1 g/dl (6.3-8.2)
[2025-07-22 01:51] LABS: Calcium 8.5 mg/dl (8.4-10.2); Creatine Kinase 49 U/L (30-135); Glucose 175 mg/dl (74-100); Lipase 18 U/L (23-300); Magnesium 1.7 mg/dl (1.6-2.3)
[2025-07-22 01:53] LABS: VBG PCO2 63.0 mmol/L (35-51)
[2025-07-22 01:54] LABS: Salicylate < 1.0 mg/dL (2.0-20.0)
--- NOTE | 2025-07-22 01:59 | [facility].EDCP ---
Discharge Plan Disposition Patient Disposition: Xfer Short-Term Hosp Condition: Serious Prescriptions Prescriptions: No Action levothyroxine 75 mcg capsule 75 mcg PO DAILY isosorbide mononitrate 60 mg tablet extended release 24 hr 60 mg PO DAILY clopidogrel 75 mg tablet 75 mg PO DAILY pantoprazole 20 mg tablet,delayed release (DR/EC) 20 mg PO DAILY aspirin 325 mg tablet 325 mg PO DAILY ezetimibe 10 mg tablet 10 mg PO DAILY oxycodone-acetaminophen 10-325 mg tablet 1 tab PO Q6H PRN (Reason: pain) Qty: 120 0RF albuterol sulfate 90 mcg/actuation HFA aerosol inhaler 2 puff inhalation Q6H PRN (Reason: shortness of breath or wheezing) Qty: 8.5 1RF hydralazine 50 mg tablet 50 mg PO Q3H carvedilol 25 mg Tablet 25 mg PO BID Rx Instructions: must administer with a meal/food Referrals Follow up/Referrals: Provider,Referral, MD [Primary Care Provider, Medical] - See instructions Clinical Impressions Clinical Impression: Acute respiratory failure with hypoxia and hypercarbia, COPD exacerbation, Pneumonia, Pleural effusion, right, ESRD on dialysis, Altered mental status Stand Alone Forms Stand Alone Forms: Transfer Record - ED Print Language Print Language: Maldivian Discharge ED Provider: Estefania Ball HPI General Chief Complaint: Shortness of Breath/Dyspnea Stated Complaint: SOA, low O2 Time Seen by Provider: 07/22/25 01:27 Mode of Arrival: Wheelchair Source of Information: Relative Description of Symptoms (Recalled from ER Triage Doc. by RN): pt family member reports they care for her at home tonight she began having shortness of breath and when they checked her oxygen saturation and it was in the 60s on her home O2 of 2L and the patient was altered mental status for approximately one hour prior to arrival, family member reports they increased her to 6L and brought her to the ER. Family reports she has been URI symptoms but denies fever sinces yesterday and was scheduled to see her PCP tomorrow. History of Present Illness HPI narrative: 55-year-old female with history of CKD, 40-year smoking history, cardiomegaly, hypertension, diabetes presents to the ER with family concern for shortness of breath. Patient goes to Tuesday//Tuesday dialysis and has not missed any sessions. They report patient developed upper respiratory symptoms in the last 24 hours and has had intermittent episodes of shortness of breath that they were able to manage at home by increasing her home oxygen. She typically wears 2 L nasal cannula however approximately 1 hour ago they checked on her and her oxygen saturation was only in the 60s, they increased her to 6 L nasal cannula and brought her up to the upper 80s to low 90s but noticed that the patient was confused and not as responsive as she had been previously so they brought her to the ER for further evaluation. Reportedly patient has an appointment with PCP tomorrow to evaluate for upper respiratory infection symptoms. They deny any fever at home. They deny any vomiting or diarrhea. Patient has only made urine twice in the last month. They report no medication changes since the patient's last hospitalization at the beginning of June at [facility]. Patient's oldest son is at bedside and states the patient had previously not wanted CPR. He discussed with his brother and they both agree that she would not want to have CPR or be on any life support. They made her DNR/DNI. Patient is answering basic questions and can state her name on arrival and follow basic commands but is sleepy and has increased work of breathing. She does not fully participate in review of systems otherwise. Related Data Home Medications ?Medication ?Instructions ?Recorded ?Confirmed aspirin 325 mg tablet 325 mg PO DAILY 03/07/24 06/18/25 clopidogrel 75 mg tablet 75 mg PO DAILY 03/07/24 06/23/25 ezetimibe 10 mg tablet 10 mg PO DAILY 03/07/24 06/23/25 isosorbide mononitrate 60 mg 60 mg PO DAILY 03/07/24 06/23/25 tablet,extended release 24 hr levothyroxine 75 mcg capsule 75 mcg PO DAILY 03/07/24 06/23/25 pantoprazole 20 mg tablet,delayed 20 mg PO DAILY 03/07/24 06/23/25 release hydralazine 50 mg tablet 50 mg PO Q3H 04/13/24 06/23/25 carvedilol 25 mg tablet 25 mg PO BID 04/15/24 06/18/25 Previous Rx's ?Medication ?Instructions ?Recorded albuterol sulfate 90 mcg/actuation 2 puff inhalation Q6H PRN 06/18/25 aerosol inhaler shortness of breath or wheezing #8.5 grams oxycodone-acetaminophen 10 mg-325 1 tab PO Q6H PRN pain #120 tabs 06/18/25 mg tablet Allergies Allergy/AdvReac Type Severity Reaction Status Date / Time insulin glargine (From Allergy Intermediate Numbness Verified 06/18/25 15:13 Basaglar UniqueikPen U-100 Insulin) lisinopril (LISINOPRIL) Allergy Intermediate I-ITCHING Verified 06/18/25 15:13 [facility] Disclaimer: The information contained in this section may have been updated after the patient was seen, as this information can be updated by other users. Medical History HTN (hypertension) Social History Smoking Status: Former smoker alcohol intake: never current occupational status: other Travel in the last 8 weeks?: None Other Medical History Have you received the Pneumonia Vaccine: No ROS Obtained: Yes unobtainable due to mental status (Limited due to mental status, most responses provided by family) Constitutional Constitutional: Denies fever(s) ENT Ears, Nose, Mouth, and Throat: Reports nasal congestion Cardiovascular Cardiovascular: Reports dyspnea and Denies edema Respiratory Respiratory: Reports cough and Reports dyspnea Gastrointestinal Gastrointestingal: Denies diarrhea or vomiting Genitourinary Female Genitourinary: Reports other (Anuria) Musculoskeletal Musculoskeletal: Denies myalgias Neurologic Neurologic: Reports confusion Comments: Generalized weakness Physical Exam General General appearance: in distress and cachectic Comment: In respiratory distress, awake but slow responses, ill-appearing Head Head exam: atraumatic and normocephalic Eye Eye exam: Present EOMI; Absent PERRL (Asymmetric, nonreactive left pupil, at baseline, patient is blind in left eye), conjunctival redness or jaundice ENT ENT exam: Present mucous membranes moist Neck Neck exam: Present normal inspection and full ROM Chest Chest inspection: Present symmetric chest wall rise; Absent tenderness Respiratory Respiratory exam: Present respiratory distress, wheezes, accessory muscle use, prolonged expiratory phase and other (Tachypneic, saturating only in the upper 80s on 6 L nasal cannula with accessory muscle use and prolonged expiratory phase, wheezes, rhonchi, Rales throughout, patient has severely diminished breath sounds at the right lung base); Absent stridor Cardiovascular Cardiovascular exam: Present regular rate and normal rhythm Abdominal Exam Abdominal exam: Present soft; Absent distention or tenderness Extremities Exam Extremities exam: Present full ROM and other (Left forearm fistula present with palpable thrill and no overlying erythema or tenderness); Absent edema Back Exam Back exam: Absent tenderness Neurological Exam Neurological exam: Present other (GCS 13 on arrival); Absent alert (Sleepy but arousable to just voice), oriented X3 (Oriented only to self) or motor sensory deficit (Following basic commands in all extremities with no sensory deficit) Psychiatric Psychiatric exam: Present normal affect and normal mood Skin Skin exam: Present warm and dry HEART Score HEART Score HEART Score assessment performed?: Yes History (anamnesis): Slightly suspicious ECG: Non-specific disturbance Age: 45-65 years Risk factors: 3 or more risk factors Troponin: 1-3x normal limit HEART Score: 5 Procedures Miscellaneous Procedure Procedure Performed: Limited Cardiac Ultrasound Performed by: Estefania Ball MD Indication: Shortness of breath, generalized weakness Identified cardiac views: [-Cardiac apical four-chamber] [-Cardiac subxiphoid] Findings: Cardiac activity present with diffusely reduced wall motion, grossly reduced EF, no right heart strain, no pericardial effusion Impression: Cardiac activity present with diffusely reduced wall motion, grossly reduced EF, no right heart strain, no pericardial effusion Images were saved to permanent archive The study was technically adequate CPT: 02112 This study was performed by ar, and I personally interpreted all images/videos. Based on my clinical judgement, these images were adequate and did not necessitate further imaging. Limited lung ultrasound Performed by: Estefania Ball MD A focused ultrasound exam of the pleural spaces was performed to evaluate for pneumothorax, pulmonary edema, pleural effusion and/or consolidation. The ultrasound was performed with the following indications, as noted in the H&P: Hypoxia, shortness of breath Identified structures: Bilateral thoracic cavities were examined. Findings: Lung sliding: - Present bilaterally B-lines: Present bilaterally Pleural effusion: Large right, absent left Consolidation: Not appreciated Impression: - Pneumothorax absent - Pleural effusion large right - B-lines bilaterally - Consolidation not appreciated Images were saved to permanent archive The study was technically adequate CPT 40859-38 This study was performed by ar, and I personally interpreted all images/videos. Based on my clinical judgement, these images were adequate and did not necessitate further imaging. Critical Care Critical Care Time Critical Care Time: Yes Attestation: On 07/22/25, the high probability of a clinically significant, sudden or life threatening deterioration of the following system(s) (cardiopulmonary, renal) required my full and direct attention, intervention and personal management. The time I documented below is in addition to time spent performing reported procedures but includes the following listed in this critical care notation. Total Time Total Critical Care Time: 95 Medical Decision Making Medical Records Medical records reviewed: Yes I reviewed the patient's medical records. [place] Inquiry Pt receiving controlled substance: No Vital Signs Vital Signs: 07/22/25 01:37 07/22/25 01:50 07/22/25 01:50 Temperature 98.2 F Temperature Source Oral Pulse Rate Pulse Rate [Right] 72 Respiratory Rate 26 H Blood Pressure Blood Pressure [Right Arm] 130/63 Blood Pressure Mean Blood Pressure Mean [Right Arm] 85 Blood Pressure Source Blood Pressure Position 02 Sat by Pulse Oximetry 97 95 Oxygen Delivery Method Room Air BiPAP Fraction of Inspired Oxygen 60 60 07/22/25 01:58 07/22/25 02:05 07/22/25 02:11 Temperature Temperature Source Pulse Rate 71 72 70 Pulse Rate [Right] Respiratory Rate 18 19 Blood Pressure 105/80 L 110/84 Blood Pressure [Right Arm] Blood Pressure Mean 87 87 Blood Pressure Mean [Right Arm] Blood Pressure Source Blood Pressure Position 02 Sat by Pulse Oximetry 96 97 Oxygen Delivery Method Fraction of Inspired Oxygen 07/22/25 02:15 07/22/25 02:42 07/22/25 02:43 Temperature Temperature Source Pulse Rate 70 75 Pulse Rate [Right] Respiratory Rate 18 Blood Pressure 124/95 H Blood Pressure [Right Arm] Blood Pressure Mean 103 Blood Pressure Mean [Right Arm] Blood Pressure Source Blood Pressure Position 02 Sat by Pulse Oximetry 96 94 L Oxygen Delivery Method BiPAP BiPAP Fraction of Inspired Oxygen 07/22/25 02:45 07/22/25 03:01 07/22/25 03:01 Temperature Temperature Source Pulse Rate 70 64 Pulse Rate [Right] Respiratory Rate 16 16 Blood Pressure 146/54 H Blood Pressure [Right Arm] Blood Pressure Mean 84 Blood Pressure Mean [Right Arm] Blood Pressure Source Blood Pressure Position 02 Sat by Pulse Oximetry 95 93 L Oxygen Delivery Method BiPAP BiPAP Fraction of Inspired Oxygen 07/22/25 03:15 07/22/25 03:30 07/22/25 03:33 Temperature Temperature Source Pulse Rate 61 62 Pulse Rate [Right] Respiratory Rate 13 13 Blood Pressure 111/88 Blood Pressure [Right Arm] Blood Pressure Mean 95 Blood Pressure Mean [Right Arm] Blood Pressure Source Blood Pressure Position 02 Sat by Pulse Oximetry 93 L 94 L Oxygen Delivery Method BiPAP BiPAP Fraction of Inspired Oxygen 07/22/25 03:33 07/22/25 04:00 07/22/25 04:01 Temperature Temperature Source Pulse Rate 62 Pulse Rate [Right] Respiratory Rate 12 15 Blood Pressure 85/68 L Blood Pressure [Right Arm] Blood Pressure Mean 73 Blood Pressure Mean [Right Arm] Blood Pressure Source Blood Pressure Position 02 Sat by Pulse Oximetry 92 L Oxygen Delivery Method BiPAP Fraction of Inspired Oxygen 07/22/25 04:01 07/22/25 04:06 07/22/25 04:12 Temperature Temperature Source Pulse Rate 68 Pulse Rate [Right] Respiratory Rate 14 19 15 Blood Pressure Blood Pressure [Right Arm] Blood Pressure Mean Blood Pressure Mean [Right Arm] Blood Pressure Source Blood Pressure Position 02 Sat by Pulse Oximetry 97 Oxygen Delivery Method BiPAP Fraction of Inspired Oxygen 07/22/25 04:15 07/22/25 04:16 07/22/25 04:20 Temperature Temperature Source Pulse Rate 67 68 67 Pulse Rate [Right] Respiratory Rate 17 13 Blood Pressure 95/50 L Blood Pressure [Right Arm] Blood Pressure Mean Blood Pressure Mean [Right Arm] Blood Pressure Source Manual Cuff/ Palpation Blood Pressure Position Sitting 02 Sat by Pulse Oximetry 95 98 Oxygen Delivery Method BiPAP BiPAP Fraction of Inspired Oxygen Lab Data Labs: Lab Results 07/22/25 01:29: VBG pH 7.27 L, VBG pCO2 63.0 H, VBG pO2 37.4, VBG HCO3 28.2, VBG Total CO2 30.1 H, VBG O2 Saturation 62.5, VBG Base Excess 1.2, VBG Lactic Acid 1.6 07/22/25 01:32: WBC 6.5, RBC 3.00 L, Hgb 8.7 L, Hct 30.7 L, MCV 102.3 H, MCH 29.0, MCHC 28.3 L, RDW 19.6 H, Plt Count 73 L, MPV 13.1 H, Neut % (Auto) 88.5 H, Lymph % (Auto) 4.8 L, Hendry % (Auto) 5.4, Eos % (Auto) 0.5, Baso % (Auto) 0.3, Neut # (Auto) 5.8, Lymph # (Auto) 0.3 L, Hendry # (Auto) 0.4, Eos # (Auto) 0.0, Baso # (Auto) 0.0, Total Counted 100, Neutrophils % (Manual) 85 H, Lymphocytes % (Manual) 10, Monocytes % (Manual) 4, Eosinophils % (Manual) 1, Platelet Estimate Marked decrease, RBC Morphology Normal, PT 13.1 H, INR 1.20 H, APTT 28.5, Sodium 144, Potassium 4.6, Chloride 98, Carbon Dioxide 31 H, Anion Gap 19.6 H, BUN 54 H, Creatinine 2.80 H, Estimated Creat Clear 21, Estimated GFR 17 L*, Est GFR ( Amer) 21 L, Glucose 175 H, Calcium 8.5, Magnesium 1.7, Total Bilirubin 0.8, AST 25, ALT 29, Alkaline Phosphatase 247 H, Total Creatine Kinase 49, Troponin I 0.06 H, Total Protein 7.1, Albumin 4.5, Globulin 2.6, Albumin/Globulin Ratio 1.7, Lipase 18 L, TSH 43.10 H, Free T4 0.62 L, Salicylates < 1.0 L, Plasma/Serum Alcohol < 10, Acetone Level None detected 07/22/25 01:38: Chlamy pneumoniae PCR Not detected, Adenovirus (PCR) Not detected, B. pertussis DNA (PCR) Not detected, Coronavirus OC43 (PCR) Not detected, Coronavirus HKU1 (PCR) Not detected, Coronavirus 229E (PCR) Not detected, SARS-CoV-2 (PCR) Not detected, Coronavirus NL63 (PCR) Not detected, Human Metapneumovir PCR Not detected, Influenza A (H1) PCR Not detected, Influ A (H1N1/09) PCR Not detected, Influenza A (H3) PCR Not detected, Influenza Type A (PCR) Not detected, Influenza Type B (PCR) Not detected, M. pneumoniae (PCR) Not detected, Parainfluenza 1 (PCR) Not detected, Parainfluenza 2 (PCR) Not detected, Parainfluenza 3 (PCR) Not detected, Parainfluenza 4 (PCR) Not detected, RSV (PCR) Not detected, Entero/Rhino (PCR) Detected A 07/22/25 02:03: Ammonia < 9 L 07/22/25 03:01: VBG pH 7.28 L, VBG pCO2 58.5 H, VBG pO2 107.3 H, VBG HCO3 26.9, VBG Total CO2 28.7 H, VBG O2 Saturation 97.8 H, VBG Base Excess 0.1, VBG Lactic Acid 1.4 07/22/25 01:32 07/22/25 01:32 Response Orders (Tests/Meds): ED MEDICATIONS Generic Name Dose Route Start Last Admin Trade Name Freq PRN Reason Stop Dose Admin Vancomycin HCl 1,000 mg/ 250 mls @ 125 mls/hr 07/22/25 03:00 07/22/25 03:28 Sodium Chloride IV 07/22/25 04:59 125 mls/hr ONCE ONE Administration Miscellaneous 1 each 07/22/25 02:45 Vancomycin Consult Request NOTAPPLIC 08/21/25 02:44 CONSULT [facility]Y [facility] Sodium Chloride 10 ml 07/22/25 02:40 07/22/25 02:42 Sodium Chloride 0.9% 10ml Syr (Rad Only) IV 08/21/25 02:39 10 ml NEEDED PRN Administration Maintain IV Site Discontinued Medications Generic Name Dose Route Start Last Admin Trade Name Freq PRN Reason Stop Dose Admin Albuterol Sulfate 20 mg 07/22/25 01:55 07/22/25 02:11 Albuterol 0.083% 2.5 Mg/3 Ml [facility] 07/22/25 01:56 20 mg ONCE ONE Administration Albuterol/Ipratropium 9 ml 07/22/25 01:32 07/22/25 01:46 Ipratropium/Albuterol 3 Ml [facility] 07/22/25 01:33 9 ml ONCE ONE Administration Piperacillin Sod/Tazobactam 50 mls @ 100 mls/hr 07/22/25 02:57 07/22/25 03:27 Sod 2.25 gm/ Sodium Chloride IV 07/22/25 03:26 Infused ONCE ONE Infusion Lactated Ringer's 250 mls @ 999 mls/hr 07/22/25 03:13 07/22/25 03:41 Lactated Ringer's 500ml IV 07/22/25 03:28 Infused .Q16M ONE Infusion Iopamidol 70 ml 07/22/25 02:40 07/22/25 02:42 Iopamidol-370 (76%);100ml Bottle IV 07/22/25 02:41 70 ml ONCE ONE Administration Midazolam HCl 0.5 mg 07/22/25 02:09 07/22/25 02:20 Midazolam 2mg/2ml Vial IV 07/22/25 02:10 0.5 mg ONCE ONE Administration Ondansetron HCl 4 mg 07/22/25 01:41 07/22/25 01:46 Ondansetron 4mg/2ml Vial IV 07/22/25 01:42 4 mg ONCE ONE Administration Sodium Chloride 40 ml 07/22/25 02:40 07/22/25 02:41 0.9 % Sodium Chloride 50 Ml Vial IV 07/22/25 02:41 40 ml ONCE ONE Administration ORDERS Category Date Time Status CT angio chest PE protocol Stat Cat Scan 07/22/25 02:[address] head/brain wo con Stat Cat Scan 07/22/25 01:32 Completed POCUS Point of Care (ER Only) Stat Exams 07/22/25 01:30 Completed XR chest portable Stat Exams 07/22/25 01:30 Completed Acetone, Serum (Rapid) Stat Lab 07/22/25 01:32 Completed Activated Partial Thrombo Time Stat Lab 07/22/25 01:32 Completed Ammonia Stat Lab 07/22/25 02:03 Completed Complete Blood Count Auto Diff Stat Lab 07/22/25 01:32 Completed Comprehensive Metabolic Panel Stat Lab 07/22/25 01:32 Completed Creatine Kinase Stat Lab 07/22/25 01:32 Completed Ethyl Alcohol Stat Lab 07/22/25 01:32 Completed Free T4 (Free Thyroxine) Stat Lab 07/22/25 01:32 Completed Full Resp Panel w/COVID (H) Routine Lab 07/22/25 01:38 Completed Lipase Stat Lab 07/22/25 01:32 Completed Magnesium Stat Lab 07/22/25 01:32 Completed Prothrombin Time INR Stat Lab 07/22/25 01:32 Completed Salicylate Stat Lab 07/22/25 01:32 Completed Thyroid Stimulating Hormone Stat Lab 07/22/25 01:32 Completed Troponin I Q3H Lab 07/22/25 04:45 Ordered Troponin I Q3H Lab 07/22/25 07:45 Ordered Troponin I Stat Lab 07/22/25 01:32 Completed Blood Culture Stat Micro 07/22/25 01:40 Received VBG [Venous Blood Gas] Stat RT 07/22/25 03:01 Completed Venous Blood Gas Stat RT 07/22/25 01:29 Completed MDM Narrative Medical Decision Narrative: In summary, this 55-year-old female with comorbidities described in the HPI presents to the emergency department today with shortness of breath, altered mental status. On initial evaluation patient is hemodynamically stable, afebrile but obviously in respiratory distress with tachypnea, hypoxia, expiratory wheezes, accessory muscle use, prolonged expiratory phase, GCS 13, following commands, slightly confused but is oriented to self. Sleepy but easily arousable, no focal neurologic deficits appreciated, no peripheral edema, no evidence of traumatic injury. Differential diagnosis includes but is not limited to volume overload, I considered ACS or PE, with altered mental status considered the possibility of intracranial bleed, hypercarbia, COPD exacerbation, I do not appreciate focal neurologic deficit that would be concerning for intracranial bleed, patient has had no traumatic injury, I considered the possibility of viral infection, pneumonia, I considered UTI but patient has only made urine twice in the last month so I do not believe it is appropriate to attempt to collect urine on this patient. I also considered intoxication. Based on these concerns, I ordered hematologic and serum labs, chest x-ray, I performed [id number] ultrasound which demonstrates globally depressed cardiac function with grossly reduced EF, no evidence of right heart strain or pericardial effusion, patient does have moderate to large pleural effusion on the right and B-lines throughout both lung sailnas with no obvious consolidation. Also ordered VBG, CT head, tox labs including salicylate levels since patient is a chronic aspirin user. ECGs are difficult to interpret secondary to artifact. Initial ECG personally interpreted demonstrates sinus rhythm, rate 93, frequent PVCs, right axis, prolonged QTc, artifact limits interpretation otherwise, do not appreciate overt evidence of STEMI though multiple leads are significantly obscured with artifact. Repeat ECG a few minutes later demonstrates sinus tachycardia, rate 109, occasional PVCs, right axis, T wave inversions in multiple leads that have previously been present, no STEMI, lead V1 and V2 are still very difficult to interpret secondary to artifact. Patient received DuoNebs initially for treatment. Patient is DNR/DNI and is a GCS 13, she was placed on BiPAP as soon as it was available and nebs are running through this. She is tolerating it well and her oxygen saturation has improved to the low 90s. Continuous albuterol is being administered since her VBG resulted and was reviewed by me to have hypercarbia and respiratory acidosis. Labs personally reviewed demonstrate no leukocytosis, anemia improved from prior, thrombocytopenia stable from previous. Patient does have slightly elevated PT/INR. With mild thrombocytopenia and her slightly elevated PT/INR and only moderate effusion on the right which I suspect has been gradually accumulating, I am not planning to perform thoracentesis because I believe at this point the risks outweigh the benefits especially since patient is improved on the BiPAP. I also do not think she would be able to sit up in appropriate position for me to perform thoracentesis and with her coags and clotting factors being slightly altered I am concerned I may cause excessive bleeding. XR personally interpreted demonstrates bilateral pulmonary edema, moderate-large right pleural effusion, infiltrate versus atelectasis in the right lung due to compression from effusion. With her recent symptoms I do suspect this represents pneumonia. I have not yet started IV antibiotics for this patient because I need to know her kidney function before dosing these. She does not technically meet sepsis criteria either, so at this time I will only be treating for pneumonia given that is my highest suspicion for source of illness. CT imaging personally interpreted demonstrate no acute intracranial bleed, mass, or midline shift, see radiology read for final interpretation. CTA PE personally interpreted demonstrates no obvious large PE, patient has large right pleural effusion As well as right sided pneumonia and bilateral pulmonary edema, see radiology read for final interpretation which comments on possible masslike component of the right sided pneumonia and intrathoracic lymphadenopathy. [facility] pharmacist Ferny recommended 2.25g of Zosyn and 1 g vancomycin. Patient had received very low-dose of Versed to tolerate the BiPAP better. She is tolerating it well at this point, she has improved air movement in both lungs on reassessment. I believe she is appropriate for transfer at this time, family is comfortable with this plan. Reaching out to [facility] initially for transfer since patient has been transferred there in the past and family was happy with the care received there. While awaiting a callback from [facility], repeat ECG was performed demonstrating sinus rhythm, rate 64, right axis deviation, no obvious STEMI, however patient's troponin is 0.06. I reached out to cardiology and discussed this case with Dr. Aguayo. We reviewed the ECG and he does not believe these are acute changes or likely to be ischemic in nature. Since patient is already slightly coagulopathic and will likely need thoracentesis, he is not recommending anticoagulation at this time. We both suspect that patient's troponin elevation could be chronic in nature anyways given her ESRD I appreciate his recommendations. Unfortunately [facility] is full and patient would be on a wait list, currently reaching out to [place] [facility]. Kidney function labs were delayed due to the analyzer being down, they resulted demonstrating findings consistent with known ESRD with elevated creatinine, however patient is also prerenal with BUN 54. I do not want to volume overload her given she already has B-lines and requires dialysis, however she may be somewhat intravascularly depleted given her ongoing illness, I am going to start with 250 mL of LR and see if she tolerates this before pursuing additional IV fluids. [facility] stated [place] is unable to take this patient to their facility but is reaching out to [facility]. Repeat VBG demonstrates improving pCO2, pH stable at 7.28, VBG lactic slightly improved now 1.4. [place] is also unable to take the patient but [facility] has bed availability. I spoke with Dr. Guevara with the hospitalist service. He and I discussed the patient's history, presentation, current status, interventions, DNR/DNI status, results, cardiology recommendations, and necessity for transfer. After discussing the case he agrees with the management so far as well as and graciously accepted the patient for transfer to their ICU. Patient was reassessed immediately prior to transfer, she is resting more comfortably and tolerating the BiPAP better since receiving the low-dose Versed. Her oxygen saturation is 92 to 94% with BiPAP 18/8, FiO2 60%. respiratory rate 15-17, GCS 13. Patient had a low blood pressure reading briefly but the cuff was on her side and not positioned appropriately. Manual pressure was 95/50 and repeat cuff pressure after appropriate positioning on her right upper extremity is 168/76. Patient has brisk capillary refill and is easy to arouse and more mentally alert than she was previously so I do not suspect that she was ever truly hypotensive. She has tolerated the 250 mL of IV fluids, I am not going to administer anymore at this point to not overload her because I think this could potentially make her blood pressure worse given her poor cardiac function. She was transferred in serious but currently stable condition.
[2025-07-22 02:03] LABS: Troponin I 0.06 ng/ml (0.00-0.034)
[2025-07-22 02:06] LABS: Activated Partial Thrombo Time 28.5 seconds (22.8-30.6); INR 1.20 (0.9-1.1); Prothrombin Time 13.1 seconds (10.1-12.5)
[2025-07-22] MEDS: ALBUTEROL 0.083% 2.5 MG/3 ML NEB 20 MG IH (02:11)
[2025-07-22] MEDS: MIDAZOLAM 2MG/2ML VIAL 0.5 MG IV (02:20)
[2025-07-22 02:21] LABS: Thyroid Stimulating Hormone 43.10 uIU/mL (0.465-4.68)
[2025-07-22 02:22] LABS: Ammonia < 9 umol/L (9-30)
--- NOTE | 2025-07-22 02:27 | CT_ITS ---
PROCEDURE INFORMATION: Exam: CTA Chest With Contrast Exam date and time: 07/22/2025 2:35 AM Age: 55 years old Clinical indication: Shortness of breath; Additional info: SOA hypoxia effusion TECHNIQUE: Imaging protocol: Computed tomographic angiography of the chest with contrast. Exam focused on the arteries. 3D rendering (Not supervised by radiologist): MIP and/or 3D reconstructed images were created by the technologist. Radiation optimization: All CT scans at this facility use at least one of these dose optimization techniques: automated exposure control; mA and/or kV adjustment per patient size (includes targeted exams where dose is matched to clinical indication); or iterative reconstruction. Contrast material: ISOUVE 370; Contrast volume: 70 ml; Contrast route: INTRAVENOUS (IV); COMPARISON: CT ANGIO CHEST PE PROTOCOL 04/14/2024 9:46 PM FINDINGS: Pulmonary arteries: The pulmonary artery remains enlarged at 3.7 cm. Aorta: Unremarkable. No aortic aneurysm. No aortic dissection. Lungs: Extensive bilateral pulmonary infiltrates these are in a perihilar distribution on the right and has a patchy distribution on the left. In addition there is diffuse ground-glass opacity seen throughout the lungs with thickening of the interlobular septa. Pleural spaces: Large right-sided pleural effusion. Heart: Moderate cardiomegaly. Coronary arteries: Extensive coronary calcium. Lymph nodes: Prominent right paratracheal AP window right hilar and subcarinal lymph nodes.. Bones/joints: Median sternotomy, status post CABG. Soft tissues: Unremarkable. IMPRESSION: 1. No evidence of pulmonary embolus. 2. Cardiomegaly, coronary atherosclerosis, bilateral effusions, thickening of the interlobular septa, ground-glass opacity likely pulmonary edema, findings all consistent with congestive failure. 3. Patchy areas of infiltrate most prominent in the right perihilar region. Some of it is masslike therefore consider follow-up skin following treatment of presumed infiltrate to evaluate for underlying residual mass. 4. Diffuse mediastinal lymphadenopathy. 5. Pulmonary artery enlargement was present, this can be seen with pulmonary hypertension. 6. Median sternotomy, status post CABG.
[2025-07-22] MEDS: 0.9 % SODIUM CHLORIDE 50 ML VIAL 40 ML IV (02:41)
[2025-07-22] MEDS: SODIUM CHLORIDE 0.9% 10ML SYR (RAD ONLY) 10 ML IV (02:42)
[2025-07-22] MEDS: IOPAMIDOL-370 (76%);100ML BOTTLE 70 ML IV (02:42)
--- NOTE | 2025-07-22 02:44 | PC.NURSE ---
spoke with Ferny Pharm,D regarding zosyn and vanc dosing
[2025-07-22 02:51] LABS: Blood Urea Nitrogen 54 mg/dl (7-17); Creatinine Clearance Estimated 21 mL/min (50-200); Creatinine,Serum 2.80 mg/dl (0.52-1.04); Estimated Glomerular Filt Rate 17 ml/min (>60); GFR (African American) 21 ML/MIN (>60)
--- NOTE | 2025-07-22 02:55 | ECG_ITS ---
APPROVED REPORT Exam: Resting ECG HR:64 bpm ECG Measurements Heart Rate 64 AXES AZ 138 P 90 QRSd 124 QRS 111 QT 439 T -63 QTc 449 Conclusion SINUS RHYTHM POSSIBLE RIGHT VENTRICULAR HYPERTROPHY [SOME/ALL OF: PROMINENT R IN V1, LATE TRANSITION, RAD, TONY, SSS] ST DEVIATION AND MODERATE T-WAVE ABNORMALITY, CONSIDER LATERAL ISCHEMIA [-0.1+ mV T-WAVE IN I/aVL/V5/V6] ST DEVIATION AND MODERATE T-WAVE ABNORMALITY, CONSIDER INFERIOR ISCHEMIA [-0.1+ mV T-WAVE IN II/aVF] No STEMI Electronically signed by : DARÍO GONZALEZ, 07/23/2025 05:08:44
[2025-07-22] MEDS: PIPERACILLIN/TAZO 2.25 GM in 0.9 % SODIUM CHLORIDE 50 ML IV (02:58)
[2025-07-22 02:59] LABS: Acetone, Serum (Rapid) None Detected (None Detect)
--- NOTE | 2025-07-22 03:08 | PC.NURSE ---
Spoke with [facility], awaiting a call back at this time
[2025-07-22 03:16] LABS: Lactate Venous 1.4 mmol/L (0.4-2.0); VBG HCO3 26.9 mmol/L (23-30); VBG PH 7.28 mmol/L (7.31-7.41); VBG PO2 107.3 mmol/L (28-40)
[2025-07-22 03:19] LABS: VBG PCO2 58.5 mmol/L (35-51)
[2025-07-22] MEDS: RINGERS SOLUTION,LACTATED 250 ML 999 ML IV (03:19)
--- NOTE | 2025-07-22 03:21 | PC.NURSE ---
spoke with [facility] transfer [facility], informed that [place] does not have bed availability. reported they would check [place]
[2025-07-22] MEDS: VANCOMYCIN HCL 1,000 MG in 0.9 % SODIUM CHLORIDE 250 ML 125 MG IV (03:28)
--- NOTE | 2025-07-22 03:37 | PC.NURSE ---
spoke with [facility], informed that [facility] did not have nephrology coverage. Did inform that [facility] had availability and asked if MD Ball would like to connect with them. MD currently on the phone with physician at this time
[2025-07-22 03:40] LABS: Free T4 (Free Thyroxine) 0.62 ng/dl (0.78-2.19)
[2025-07-22 03:46] LABS: RBC Morphology Normal; Total Cells Counted 100
[2025-07-23 01:21] LABS: Acinetobacter calcoaceticus-ba Not Detected; Bacteroides fragilis Not Detected; Candida auris Not Detected; Candida glabrata Not Detected; Enterobacterales Not Detected; Enterococcus faecalis Not Detected; Enterococcus faecium Not Detected; Klebsiella aerogenes Not Detected; Klebsiella pneumoniae grp Not Detected; Proteus spp. Not Detected; Salmonella spp. Not Detected; Serratia marcescens Not Detected; Staphylococcus epidermidis Not Detected; Staphylococcus lugdunensis Not Detected; Staphylococcus spp. Not Detected; Stenotrophomonas maltophilia Not Detected; Streptococcus agalactiae(GrpB) Not Detected; Streptococcus pyogenes Group A Not Detected; Streptococcus spp. Not Detected
[2025-07-23 02:12] LABS: Enterococcus faecalis Not detected; Enterococcus faecium Not detected; Staphylococcus spp. Not detected
[2025-07-23 02:13] LABS: Acinetobacter calcoaceticus-ba Not detected; Bacteroides fragilis Not detected; Candida auris Not detected; Candida glabrata Not detected; Enterobacterales Not detected; Klebsiella aerogenes Not detected; Klebsiella pneumoniae grp Not detected; Proteus spp. Not detected; Salmonella spp. Not detected; Serratia marcescens Not detected; Staphylococcus epidermidis Not detected; Staphylococcus lugdunensis Not detected; Stenotrophomonas maltophilia Not detected; Streptococcus agalactiae(GrpB) Not detected; Streptococcus pyogenes Group A Not detected; Streptococcus spp. Not detected
--- NOTE | 2025-07-23 02:24 | PC.NURSE ---
Notified Dr. Ball of positive blood culture results. Stated pt was transferred to [facility]. Called and spoke with the RN taking care of pt in the ICU. Notified Lester GUIDRY of pts results and faxed results to ICU as well
--- NOTE | 2025-07-23 22:56 | PC.NURSE ---
Lab called aerobic gram neg rods
--- NOTE | 2025-07-23 23:28 | PC.NURSE ---
discussed POS culture results w/ Dr. Lee and noted Dr at [facility] is already aware.
== END 2025-07-22 04:45 | disposition short-term general hospital (02) ==
PROVIDERS: Emergency Provider Emergency Medicine
DX: A41.9 Sepsis, unspecified organism (principal); A28.0 Pasteurellosis; J96.01 Acute respiratory failure with hypoxia; J96.02 Acute respiratory failure with hypercapnia; J44.1 Chronic obstructive pulmonary disease with (acute) exacerbation; J44.0 Chronic obstructive pulmonary disease with (acute) lower respiratory infection; J18.8 Other pneumonia, unspecified organism; B34.8 Other viral infections of unspecified site; J90 Pleural effusion, not elsewhere classified; R00.0 Tachycardia, unspecified; N18.6 End stage renal disease; R41.82 Altered mental status, unspecified; I12.0 Hypertensive chronic kidney disease with stage 5 chronic kidney disease or end stage renal disease; Z87.891 Personal history of nicotine dependence; Z66 Do not resuscitate; Z99.2 Dependence on renal dialysis
CPT/HCPCS: 0223U; 70450; 71045; 71275; 80053; 80320; 80329; 82009; 82140; 82550; 82803; 83690; 83735; 84439; 84443; 84484; 85007; 85025; 85610; 85730; 87040; 87077; 87154; 87186; 93005; 96365; 96367; 96375; 99285; 99291; 99292; J2250; J2405; J2543; J3373; J7050; J7120; Q9967

== ENCOUNTER 2025-07-25 05:42 | Emergency (ER) | payer MEDICARE, SELFPAY ==
--- OUTSIDE RECORDS SUMMARY | 2025-06-01 15:48 | XMS_ITS | Encounter Summary ---
Author Organization [facility] Address [address] [place] [address] Care Team Providers Care Manager Of Finance Name Role Phone Rosemarie Riley APRN Primary Care Provider [phone] Haydee Mccloud Unavailable Unavailable Reason for Referral * Consultation (Routine) - Authorized Specialty Diagnoses / Procedures Referred By Rebeca reynolds Referred To Contact Ophthalmology Diagnoses History of glaucoma Mayra Rogers MD [address] [place] [address] Phone: tel: fax: Referral ID Status Reason Start Date Expiration Date Visits Requested Visits Authorized [id number] Authorized Specialty Services Required 06/10/2025 12/10/2026 1 1 Scheduling Instructions Please schedule for history of neovascular glaucoma and vitreous hemorrhage of left eye * Consultation (Routine) - Authorized Specialty Diagnoses / Procedures Referred By Rebeca t Referred To Contact Cardiology Diagnoses Coronary artery disease involving coronary bypass graft of 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 pectoris Chronic congestive heart failure, unspecified heart failure type Mayra Rogers MD [address] [place] [address] Phone: tel: fax: Referral ID Status Reason Start Date Expiration Date Visits Requested Visits Authorized [id number] Authorized Specialty Services Required 06/10/2025 12/10/2026 1 1 * Consultation (Routine) - Pending Review Specialty Diagnoses / Procedures Referred By Contac t Referred To Contact Pulmonology Diagnoses Acute hypoxic respiratory failure Chronic obstructive pulmonary disease with acute exacerbation (CMS/HCC) Mayra Rogers MD [address] [place] [address] Phone: tel: fax: [facility] [address] [place] [address] Phone: tel: fax: Referral ID Status Reason Start Date Expiration Date V isits Requested Visits Authorized [id number] Pending Review 06/10/2025 12/10/2026 1 1 * Consultation (Routine) - Authorized Specialty Diagnoses / Procedures Referred By Rebeca reynolds Referred To Contact Family Medicine Diagnoses End-stage renal disease needing dialysis (CMS/HCC) Severe protein-calorie malnutrition (CMS/HCC) Hypertension, unspecified type Hypothyroidism, unspecified type Hyperlipidemia, unspecified hyperlipidemia type Anemia, unspecified type Mood disorder (CMS/HCC) Mayra Rogers MD [address] [place] [phone] Phone: tel: fax: Referral ID Status Reason Start Date Expiration Date V isits Requested Visits Authorized [id number] Authorized 06/10/2025 12/10/2026 1 1 * Imaging (Routine) - Closed Specialty Diagnoses / Procedures Referred By Rebeca reynolds Referred To Contact Radiology Diagnoses ESRD (end stage renal disease) Unspecified complication of cardiac and vascular prosthetic device, implant and graft, subsequent encounter Procedures IR Angiogram ArterioVenous Shunt Medina Ferris MD [address] [address] Phone: tel: fax: Referral ID Status Reason Start Date Expiration Date Visits Re quested Visits Authorized [id number] Closed 05/13/2025 11/12/2026 1 1 * Home Health (Routine) - Authorized Specialty Diagnoses / Procedures Referred By Rebeca reynolds Referred To Contact Home Health Services Diagnoses Acute pulmonary edema (CMS/HCC) Mayra Rogers MD [address] [place] [address] Phone: tel: fax: Referral ID Status Reason Start Date Expiration Date Visits Requested Visits Authorized [id number] Authorized Specialty Services Required 06/04/2025 12/04/2026 999 999 Reason for Visit * Reason Comments Fistula problem * Auth/Cert (Routine) Specialty Diagnoses / Procedures Referred By Rebeca reynolds Referred To Contact Diagnoses Acute pulmonary edema (CMS/HCC) GI bleed End-stage renal disease needing dialysis (CMS/HCC) Mayra Rogers MD [address] [place] [address] Phone: tel: fax: [facility] [address] [place] [address] Phone: tel: Referral ID Status Reason Start Date Expiration Date Visits Re quested Visits Authorized [id number] 1 1 Encounter Details Date Type Department Care Team (Late st Contact Info) Description 06/01/2025 4:48 PM EDT - 06/10/2025 4:54 PM EDT Hospital Encounter [facility] [address] [place] [address] Faiza Garvin MD [address] [place] [phone] Senthil Carnes MD [address] [place] [phone] Neno Yancey MD [address] [place] [address] Mayra Rogers MD [address] [place] [phone] Acute pulmonary edema (CMS/HCC) (Primary Dx); End-stage renal disease needing dialysis (CMS/HCC); ESRD (end stage renal disease) (CMS/HCC); Unspecified complication of cardiac and vascular prosthetic device, implant and graft, subsequent encounter; Severe protein-calorie malnutrition (CMS/HCC); Hypertension, unspecified type; Hypothyroidism, unspecified type; Hyperlipidemia, unspecified hyperlipidemia type; Anemia, unspecified type; Mood disorder (CMS/HCC); Acute hypoxic respiratory failure; Chronic obstructive pulmonary disease with acute exacerbation (CMS/HCC); Coronary artery disease involving coronary bypass graft of 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 pectoris; History of glaucoma; Chronic congestive heart failure, unspecified heart failure type (CMS/HCC) Discharge Disposition: Home or Self Care Social History Tobacco Use Types Packs/Day Years Used Date Smoking Tobacco: Every Day Alcohol Use Standard Drinks/Week Comments No 0 (1 standard drink = 0.6 oz pur e alcohol) Social Connection and Isolation Panel Answer Date Recorded Frequency of Communication with Friends and Fami ly Not on file 06/25/2024 Frequency of Social Gatherin gs with Friends and Family Not on file 06/25/2024 Attends [employer] Not on file 06/25 Active Member of Clubs or Organizations Not on f ile 06/25/2024 Attends Club or Organization Meetings Not on boris e 06/25/2024 Are you , , di vorced, , never , or living with a partner? Living with partner 06/25/2024 Humiliation, Afraid, Rape, and Kick questionnair e Answer Date Recorded Within the last year, have y ou been afraid of your partner or ex-partner? No 06/03/2025 Within the last year, have y ou been humiliated or emotionally abused in other ways by your partner or ex-partner? No Within the last year, have y ou been kicked, hit, slapped, or otherwise physically hurt by your partner or ex-partner? No 06/03/2025 Within the last year, have y ou been raped or forced to have any kind of sexual activity by your partner or ex-partner? No 06/03/2025 Hunger Vital Sign Answer Date Recorded Within the past 12 months, y ou worried that your food would run out before you got the money to buy more. Never true 06/03/20 25 Within the past 12 months, t he food you bought just didn't last and you didn't have money to get more. Never true 06/03/2025 PRAPARE - Transportation Answer Date Re corded In the past 12 months, has l ack of transportation kept you from medical appointments or from getting medications? No 05/20 In the past 12 months, has l ack of transportation kept you from meetings, work, or from getting things needed for daily living? No 06/03/2025 Housing Stability Vital Sign Answer Zackery e Recorded In the last 12 months, was t here a time when you were not able to pay the mortgage or rent on time? No 06/03/2025 In the past 12 months, how m any times have you moved where you were living? 2 06/03/2025 At any time in the past 12 m [facility], were you homeless or living in a jail (including now)? No 06/03/2025 [facility] Utilities Answer Date Recorded In the past 12 months has th e electric, gas, oil, or water company threatened to shut off services in your home? No 06/03/2025 CAGE ASSESSMENT Answer Date Recorded Cage unable [...] drink first t jacqueline in the morning ([employer]) to steady your nerves or to get rid of a hangover? 0 06/21/2024 CAGE Questionnaire Score 0 024 Comments Unknown Sex and Gender Information Value Date Recorded Sex Assigned at Female 07/03/2024 2:13 PM EDT Legal Sex Female 7:39 PM EDT Gender Identity Not on file Sexual Orientation Not on file documented as of this encounter Last Filed Vital Signs Vital Sign Reading Time Taken Comments Blood Pressure 180/73 06/10/2025 1:54 PM EDT Pulse 69 06/10/2025 1:54 PM EDT Temperature 36.3 C (97.3 F) 06/10/2025 1:54 PM EDT Respiratory Rate 16 06/10/2025 1:54 PM EDT Oxygen Saturation 91% 06/10/2025 1:54 PM EDT Inhaled Oxygen Concentration - - Weight 57.5 kg (126 lb 12.2 oz) 06/10/2025 6:24 AM EDT Height 170.2 cm (5' 7 ) 06/01/2025 3:35 PM EDT Body Mass Index 19.85 06/01/2025 3:35 PM EDT documented in this encounter Functional Status * Calculated C-SSRS Risk Score (Lifetime/Recent) Answer Date of Assessment Author No Risk Indicated 06/10/2025 8:00 AM EDT Mayra Ku RN * Question Answer Date of Assessment Author 1. Wish to be (Past 1 Month) No 06/10/2025 8:00 AM EDT Mayra Hung RN 2. Non-Specific Active Suicidal Thoughts (Past 1 Month) No 06/10/2025 8:00 AM EDT Mayra Hung RN 6. Suicidal Behavior (Lifetime) No 06/10/2025 8:00 AM EDT Mayra Hung RN documented as of this encounter Discharge Instructions * Discharge Instructions* Bobby Rose MD - 06/10/2025 3:07 PM EDT Call your provider call 911 if you experience any of the following: difficulty breathing, headache,visual disturbances, chest pain, inability to eat or drink or take medications, persistent nausea or vomiting, uncontrolled abdominal pain, temperature greater than 100.4 F, visible blood in stool, black/tarry/sticky stools, bloody sputum. Medication changes Start taking aspirin 81 mg daily Decrease carvedilol dose to 12.5 mg twice daily Increase to hydralazine 75 mg 3 times daily You been prescribed 7 days of oxycodone-acetaminophen after missing pain clinic appointment due to hospitalization. Please schedule with pain clinic as soon as possible. Stop taking the following: Acetazolamide, clopidogrel Activity level She remains a high fall risk due to decreased strength/balance/safety awareness/activity tolerance. Team discussed the recommendations of subacute rehab with patient and her family. Patient expressedunderstanding that we recommend at but she would like to discharge home at this time despite remaining a high fall risk. Family states they are arranging for home health with patient's PCP. documented in this encounter Medications at Time of Discharge amLODIPine (Norvasc) 10 MG tablet Take 1 tablet by mouth daily. aspirin 81 MG chewable tablet Chew 1 tablet daily. 30 tablet 06/11/2025 atorvastatin (Lipitor) 80 MG tablet Take 1 tablet by mouth nightly. calcitriol (Rocaltrol) 0.25 MCG capsule 1 tablet give at every dialysis treatment carvedilol (Coreg) 12.5 MG tablet Take 1 tablet by mouth 2 times a day with meals. 60 tablet 06/10/2025 doxazosin (Cardura) 2 MG tablet Take 1 tablet by mouth daily. escitalopram (Lexapro) 10 MG tablet Take 1 tablet by mouth daily. ezetimibe (Zetia) 10 MG tablet Take 1 tablet (10 mg) by mouth 1 (one) time each day. 2 tablet 07/03/2024 hydrALAZINE (Apresoline) 25 MG tablet Take 3 tablets by mouth 3 times a day. 270 tablet 06/10/2025 isosorbide mononitrate ER (Imdur) 60 MG 24 hr tablet Take 2 tablets by mouth daily. Do not crush or chew. levothyroxine (Synthroid, Levoxyl) 88 MCG tablet Take 1 tablet by mouth daily before breakfast. 30 tablet 06/11/2025 Methoxy PEG-Epoetin Beta (Mircera) 200 MCG/0.3ML solution prefilled syringe Inject as directed. 200 mcg given at dialysis every 14 days naloxone (Narcan) 4 mg/0.1 mL nasal spray 1. Give 1 spray in nostril for no/slow breathing or cannot wake after opioid use 2. Call 911 3. Repeat in other nostril if symptoms continue 1 each 06/10/2025 pantoprazole (ProtoNix) 20 MG EC tablet Take 1 tablet by mouth daily before breakfast. Do not crush, chew, or split. oxyCODONE-acetami nophen (Percocet) 10-325 MG tablet Take 1 tablet by mouth every 8 hours as needed for severe pain for up to 7 days. 21 tablet 06/10/2025 documented as of this encounter Miscellaneous Notes * Nursing Note - Shelby Bagley RN - 06/10/2025 4:54 PM EDT Task Description: Mayra Rogers MD [facility] Providers Only Attach patient's chart to the message first, then use F2 to complete the form Patient name: Mar Waldron Task: Schedule outpatient appointment of discharged or ED patient and Other: refer to pulmonary rehab. Looking to go to either [facility] (fax: [phone]) or [place] ( ) Task description: Refer to pulmonary rehab, family called back after discharge and wanted a pulmonary rehab closer to home. Ordering provider: Mayra Rogers MD How soon?: 2 weeks Request NN callback?: Yes NN call back specifics?: Call and let them know what rehab accepted her Date of discharge: 06/10/2025 Readmission risk score?: High Appointment Description: 06/14/25 9:25am Nurse Navigator NN reviewed request for Pulm Rehab in [place] or [place] within the next 2 weeks. Order for PFT in [facility]. NN sent secure chat to Serena Naranjo RN in Pul to request assistance with getting PFT within the next week as need results to get Ms. Waldron into Pul Rehab. NN willfollow up on status of PFT appt. 06/17/2025 at 1319: NN reviewed [facility] and PFT is scheduled for 07/05. Precert is authorized. NN called [facility] Pul Rehab (ph: [phone]) and received voicemail. 06/18/2025 at 0940: NN called [facility] Pulm Rehab and was advised they do require a PFTbefore they can schedule. NN called PFT Lab and spoke with Meeta who advised there is a sooner appt available this Tuesday, 06/21, at 1pm. NN advised will call Ms. Waldron to see if she can attend and call PFT lab back. NN called Ms. Waldron and spoke with her son who advised she was sleeping and he'd like to discuss with her whether she can attend this Tuesday and will call NN back. 06/18/2025 at 1554: NN has not received a return call from Ms. Waldron's son. NN called Ms. Waldron back to verify if she could attend a PFT this Tuesday, as mentioned above, but no answer or voicemail. 06/20/25 8:47am NN has not received returned call from Ms. Waldron's son keeping PFT appt as scheduledunless he calls back before the date of offered appt. 07/08/25 10:44am NN reviewed epic and PFT wasnot attended. Appt is not rescheduled. 07/08/25 11:13am NN called Ms. Waldron her son answered and advised she was not there right now. He did not have pen/paper to write down phone number to PFT lab.NN advised PFT needs to be rescheduled ryan as pulm rehab cannot be scheduled until she has completed PFT Ms. Waldron's son verbalized understanding. NN advised would call back and leave PFT lab scheduling number called back and [facility] is not set up. Ms. Waldron's son advised she would be back home in afew hours. NN will try to reach her again. 07/09/2025 at 1039: NN reviewed Epic Care Everywhere and Ms. Waldron was discharged from [facility] on 06/29 after presenting on 06/23 for further evaluation and management of shortness of breath. NN called Ms. Waldron and spoke with her son, Wade, who advised her dialysis schedule has recently changed from MWF to T Th and Sat and he's in the process of rescheduling all of her appts. NN offered to give him the phone numbers for the PFT lab and Urology Clinic, but he advised [facility] and will call soon to get her appts rescheduled. NN encouraged him to do so and hevoiced understanding. 07/12/2025 at 0957: NN reviewed Epic and PFT not rescheduled. If not rescheduled by 07/16, NN will update Dr. Rogers. 07/17/25 8:29am NN reviewed epic and PFT is not rescheduled. NN sent secure chat toDr. Rogers to advise multiple calls to pt and her son requesting to reschedule pft they voiced understanding and has the scheduling phone number. As of today the appt is still not rescheduled. NN requesting to complete request and if pt or son reaches out to NN s we are happy to assist with getting PFT rescheduled. NN updated Dr. Rogers Uro appt is also not rescheduled, pt son /pt also has phone number to reschedule Uro appt. 07/17/25 9:34am NN received update from Dr. Rogers advising ok to complete the request. Cosigned by Mayra Rogers MD at 07/22/2025 1:07 PM EST Associated attestation - Mayra Rogers MD - 07/22/2025 1:07 PM EST Mayra Rogers MD * Addendum Note - Chuyita Snyder - 06/10/2025 4:54 PM EDTEncounter addended by: Chuyita Snyder on: 07/03/2025 2:39 PM Actions taken: Utilization Review data saved * Addendum Note - Shelby Bagley RN - 06/10/2025 4:54 PM EDTEncounter addended by: Shelby Bagley RN on: 07/17/2025 9:37 AM Actions taken: Clinical Note Signed * Анна MeadADELIA uJan Deedash Mayra PlattCHAO - 06/10/2025 2:59 PM EDT Images from the original note were not included. [id number] Pulmonary Edema Your healthcare provider has told you that you have pulmonary edema. Read on to learn more about this condition and how it can be treated. What is pulmonary edema? Pulmonary edema is caused by excess fluids in your lungs. It occurs when the air sacs (alveoli) in your lungs fill with fluid. The fluid buildup makes it hard for the lungs to do their job, includinggetting oxygen from the air you breathe and moving it through the body. This makes it hard to breathe. Pulmonary edema can happen suddenly, or it may develop slowly over time. The most common cause of pulmonary edema is heart failure. When the heart isn't able to pump efficiently, it can cause pressure to rise in the veins (blood vessels) of the lungs. As pressure builds, fluid leaks out of the congested veins. It fills the alveoli. The extra fluid prevents oxygen from moving through the lungs as it should. But heart failure isn?t the only cause of pulmonary edema. Damage to the lungs or kidney failure can also cause fluid to fill the lungs. And in some cases, livingor exercising at high altitudes can lead to fluid buildup in the lungs. Pulmonary edema is fluid in the air sacs (alveoli) in the lungs. How is pulmonary edema diagnosed? Your healthcare provider does an exam and asks about your health history. You may also have 1 or more of these: ? Blood tests. These are done to check for abnormalities, help rule out other problems, and determine blood oxygen levels. ? Imaging tests. These tests take detailed pictures inside the body. They may include a chest X-rayand ultrasound. ? Electrocardiography (ECG) and echocardiogram. These are done to test how well the heart is working. How is pulmonary edema treated? Treatment depends on what?s causing the edema. For instance, if it?s because of heart failure, treating the heart condition will help treat the edema. Treatment can also ease symptoms. Therapy often includes the following: ? Oxygen. This may be given through a mask that goes over the nose. It may be given through a smalltube that sits under the nose. Sometimes pressurized air will be needed through a tight-fitting mask, using a machine called CPAP or BiPAP. Or it may be given through a tube placed into the windpipe (trachea). If a tube is needed, a breathing machine (ventilator or respirator) will be used. ? Medicines. These may include water pills (diuretics) to help your body get rid of extra fluid by promoting extra urine output. You may also need medicines to treat the heart. These can help your heart pump more efficiently. This helps reduce fluid buildup in the lungs. What are the long-term concerns? If treated right away, pulmonary edema can be improved and hopefully resolved. In some cases, ongoing treatment is needed to help prevent and control the problem. This may require having procedures or taking medicines for months or years. In some cases, you may need to use oxygen or breathing equipment for a long time. This can lead to complications, such as damage to lung tissue. Your provider can explain your treatment and management options. Call 911 Call 911 if any of these occur: ? Chest pain or chest tightness ? Feeling of doom ? Wheezing that doesn't improve or get better with treatment ? Shortness of breath that doesn't improve or get better with treatment ? Severe trouble breathing and a feeling that you are suffocating ? Coughing up blood ? Skin turns blue, purple, or philip ? Can't speak full sentences before running out of breath ? Feeling faint, dizzy, or loss of consciousness ? Confusion When to call your healthcare provider Call your provider right away if you have any of these: ? Abnormal, fast, or irregular heartbeat ? Increasing anxiety, restlessness ? Change in color of your sputum ? Sweating more than normal ? Wheezing ? Shortness of breath ? Leg swelling between your knee and your ankle Last Reviewed Date: 2023 00:00:00 ?? [id number] [employer]. All rights reserved. This information is not intended as a substitute for professional medical care. Always follow your healthcare professional's instructions. * Care Plan - Mayra Mishra RN - 06/10/2025 2:57 PM EDT Problem: Adult Inpatient Plan of Care Goal: Plan of Care Review Outcome: Ongoing, Progressing Flowsheets (Taken 06/10/20251455) Progress: no change Plan of Care Reviewed With: patient child family Goal: Patient-Specific Goal (Individualized) Outcome: Ongoing, Progressing Flowsheets (Taken 06/10/20251455) Patient/Family-Specific Goals (Include Timeframe): patient will remain free from falls throughout the shift Individualized Care Needs: safety Anxieties, Fears or Concerns: denies Goal: Absence of Hospital-Acquired Illness or Injury Outcome: Ongoing, Progressing Goal: Optimal Comfort and Wellbeing Outcome: Ongoing, Progressing Intervention: Provide Person-Centered Care Flowsheets (Taken 06/10/20251455) Trust Relationship/Rapport: care explained choices provided emotional support provided empathic listening provided questions answered questions encouraged reassurance provided thoughts/feelings acknowledged Problem: Skin Injury Risk Increased Goal: Skin Health and Integrity Outcome: Ongoing, Progressing Intervention: Promote and Optimize Oral Intake Flowsheets (Taken 06/10/20251455) Oral Nutrition Promotion: physical activity promoted rest periods promoted social interaction promoted Nutrition Interventions: food preferences provided Problem: Fall Injury Risk Goal: Absence of Fall and Fall-Related Injury Outcome: Ongoing, Progressing Intervention: Identify and Manage Contributors Flowsheets (Taken 06/10/20251455) Medication Review/Management: medications reviewed Intervention: Promote Injury-Free Environment Flowsheets (Taken 06/10/20251455) Safety Promotion/Fall Prevention: activity supervised assistive device/personal items within reach clutter-free environment maintained fall prevention program maintained lighting adjusted nonskid shoes/slippers when out of bed room organization consistent safety round/check completed toileting scheduled Problem: Gas Exchange Impaired Goal: Optimal Gas Exchange Outcome: Ongoing, Progressing Intervention: Optimize Oxygenation and Ventilation Flowsheets (Taken 06/10/20251455) Airway/Ventilation Management: airway patency maintained calming measures promoted Head of Bed (HOB) Positioning: HOB elevated Problem: Mobility Impairment Goal: Optimal Mobility Outcome: Ongoing, Progressing Intervention: Optimize Mobility Flowsheets (Taken 06/10/20251455) Activity Management: activity adjusted per tolerance activity encouraged Positioning/Transfer Devices: pillows in use Problem: Hemodialysis Goal: Safe, Effective Therapy Delivery Outcome: Ongoing, Progressing Intervention: Optimize Device Care and Function Flowsheets (Taken 06/10/20251455) Medication Review/Management: medications reviewed Goal: Effective Tissue Perfusion Outcome: Ongoing, Progressing Intervention: Optimize Blood Flow Flowsheets (Taken 06/10/20251455) Stabilization Measures: airway opened legs elevated Goal: Absence of Infection Signs and Symptoms Outcome: Ongoing, Progressing Intervention: Prevent or Manage Infection Flowsheets (Taken 06/10/20251455) Infection Management: aseptic technique maintained Fever Reduction/Comfort Measures: lightweight bedding lightweight clothing Infection Prevention: hand hygiene promoted personal protective equipment utilized rest/sleep promoted single patient room provided * Progress Notes - Rosemary Song - 06/10/2025 2:42 PM EDT Case Management Discharge Note Mar Waldron 55 y.o. female CSN: [id number] Admission: 06/01/2025 4:48 PM Primary Problem: Acute hypoxic respiratory failure Primary Line Tender: Primary Caregiver: Family Assistance Available at Discharge: Current Outpatient/Agency/Support Group: outpatient hemodialysis Availability of Care Givers (#Hours): 24 hours (Family can provide 24/7 care- Patient lives with 2 adult sons and [id number]) Family/Line Tender(s) Willingness Assessed to care for patient at home: Yes Family/Line Tender(s) Readiness Assessed to care for patient at home: Yes Housing Circumstances-Z Codes: Housing Circumstances (select all that apply): Low Income (101-300% Federal Poverty Guidlines) - Z596 Discharge Facility/Level of Care Needs: Discharge Facility/Level of Care Needs: 1-Home or Self Care - Family can provide 24/7 care as needed. Patient's Choice of Community Agency(s): Patient's Choice of Community Agency(s): [facility] Patient/Family Anticipated Services at Transition: Patient/Family Anticipated Services at Transition: other (see comments) (Wade (Son) stated PCP isalready working on getting Home Health PT/OT. Denies need for CM to refer for HH) DME/Equipment Needed after Discharge: Equipment Currently Used at Home: walker, rollator, wheelchair, manual, shower chair Equipment Needed After Discharge: none Readmission Within the Last 30 Days: Readmission Within the Last 30 Days: no previous admission in last 30 days Medicare Documentation: Medicare Second Notice?: Yes Date Second Notice Completed: 06/10/25 Time Second Notice Completed: 1424 Medicare Second Notice Recieved By: Wade (son), copy placed in patient's chart by CM Follow-up: No follow-up provider specified. Discharge Transportation: Transportation Anticipated: family or friend will provide Transportation Home at Discharge: Family/Friend will Provide Has discharge transport been arranged?: Yes (Son will provide ride home.) What day is the transport expected?: 06/10/25 Follow Up Transport: Transportation Needed to Follow up Appoinments: Family/Friend will Provide Additional Comments: Per MD patient is medically ready for discharge at this time. Patient and family no longer wanting to go to [facility]. CM went to bedside and was informed that patient wanting to go home, family can provide 24/7 care as needed, and patient's PCP is currently working on getting home health set up for PT/OT. Denies any CM d/c needs at this time. Went over IMM letter with patient and family, they verbalized understanding. CM will send DC Summary To [facility]- Patient has current HD chair on MWF. CM updated [facility], no longer needing [facility]. CM went over that patient is only uses about 25% of patient effort with transfers. They stated that's better than when she came here, and can transfer patient and provide ride home without difficulty-denied any needs. CM will continue to follow until discharged. Addendum 0210: CM called and spoke to [facility] and informed her of discharge today and faxed DC Summary to f: [phone]. Rosemary Song * Discharge Summary - Bobby Rose MD - 06/10/2025 2:41 PM EDT Hospitalization Admit Date/Time: 06/01/2025 4:48 PM Admitting Attending: Mayra Rogers Discharge Date: 06/10/2025 Discharge Attending Physician: Mayra Rogers MD PCP name and Address: Rosemary Rosemarie Ugarte, [employer] [address] / [place] [address] Referring provider name and address: No referring provider defined for this encounter. Chief Concern, Brief History of Present Illness, and Hospital Course Mar Waldron is a 55-year-old female appearing much older than stated age with past medical historyof and uric end-stage renal disease on intermittent hemodialysis (MWF at [facility]), undifferentiated renal mass, hypertension, reported COPD, coronary artery disease status post CABG/PCI/COSME 15 years ago, hyperlipidemia, hypothyroidism, reported type 2 diabetes mellitus, vitreous hemorrhage left eye with end-stage neovascular glaucoma who was admitted for acute hypoxic respiratory failure dueto volume overload clot causing pleural effusion due to missed dialysis. Ms. Redd had missed dialysis due to partially thrombosed left upper extremity fistula requiring angiogram with declot, with s ubsequent inpatient dialysis. Acute hypoxic respiratory failure resolved with dialysis. Of additional note, patient is poor historian medical history since 2019 is not well understood by family. Approximately 1 year prior patient was reportedly in good health, sons recall her line dancing with her grandchildren. Patient has had significant decline over the past year, requiring significant assistance with ADLs. On the day of discharge, referrals were previously sent to subacute rehab facility by case management. Messaged that patient did not wish to go to rehab anymore and would rather discharge home. Internal medicine team had extensive discussion with patient and family explaining our recommendation forsubacute rehab for high-fall risk and assistance with ADLs. Patient expressed her understanding of risks with discharging home and confirmed she wanted to. Family report arranging home health with her PCP and would help her at home. #Acute hypoxic respiratory failure likely due to volume overload causing Pleural effusion likely due to missed dialysis and being anuric - Chart review shows history COPD though no PFTs available; CT abdomen and pelvis from 12/2024 shows emphysematous changes in bilateral lung bases; history of pleural effusion, 06/2024 thoracentesis with lights criteria being transudative - Respiratory panel negative; labs insignificant for infectious process; remains afebrile with noninfectious clinical presentation - Tuesday dialysis schedule while admitted. Resume normal dialysis schedule at discharge - Ambulatory pulmonology referral placed, they will reach out to schedule #ESRD on iHD with associated hyperphosphatemia, AGMA, and hypervolemia due to missed dialysis - Dialysis chair at [facility] on a MWF schedule - Dry weight 59kg, has AVF - Continue Renvela 800 mg 3 times a day with meals - Resume regular Tuesday schedule and other scheduled dialysis medications #Chronic anemia and thrombocytopenia, present on admission - Anemia and thrombocytopenia better explained by ESRD - Hemoglobin has remained stable during admission - No signs or symptoms of bleeding on day of discharge - Further workup and management per PCP #CAD w/ prior ME with COSME to mLAD with prior stenting - Prescribed Plavix and aspirin 325, patient and family unsure why this dose was chosen or why she remains on Plavix with most recent stent being over 10 years ago - Continue aspirin 81 mg daily at discharge, stopped taking clopidogrel - Ambulatory referral to cardiology placed they will reach out to schedule #Acute on chronic CHF (HFpEF) - TTE evaluation limited given patient's ability to tolerate exam - Volume overload better explained by ESRD w/o HD - ProBNP greater than 70K - Ambulatory referral to cardiology placed they will reach out to schedule #Renal Mass concerning for RCC - stable - Left renal mass concerning for renal cell carcinoma, seen on previous ultrasound and MRI - Have initial oncology visits scheduled per patient and family #Severe Protein-Calorie Malnutrition - High Risk for Refeeding, electrolytes monitored daily while admitted - Management per PCP #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, Malnutrition, & Inability to Perform ADLs - PT/OT recommended subacute rehab - Patient refuses and wishes to discharge home and will arrange home health with PCP. She voiced understanding of risks of going home and proceeded with her decision #Concern for Thrombosed LUE Fistula -Resolved - HD clinic had difficulty accessing fistula on 05/31/2025; positive thrill on physical exam - U/S demonstrates that the radiocephalic AV fistula is patent but flows are below normal limits with hemodynamically significant stenosis - Successful angiogram with declot on 06/04/2025; dialysis followed same day #Acute Encephalopathy - resolved - vs Subacute given history. Family describes progressive cognitive decline over course of years but with worsening over past few weeks since taking over care. - Alert to voice, speaks in short phrases, answers orientation questions, expresses opinions, drowsy - Levothyroxine increased to 88 mcg daily - Resume home Lexapro at discharge #Concern for GI Bleed - Resolved - Black chalky stools reported by sons; no melena no hematochezia; chronic anemia; hemodynamically stable - Started on IV Protonix twice daily; hemoglobin remained stable and remained hemodynamically stable, brown soft stools while inpatient - Discharged on by mouth PPI twice daily - Due for colonoscopy; PCP to follow up #Asymptomatic Sinus Bradycardia - resolved - Briefly occurred during admission, was hemodynamically stable - HR remained above 60 for several days leading up to admission - Decrease home carvedilol dose to 12.5 mg twice daily - Cardiology and PCP management Chronic Medical Conditions #HTN: Decreased Carvedilol to 12.5 twice daily, increased hydralazine to 75 mg three times a day HLD: Continue atorvastatin and ezetimibe Chronic pain: Discharge with 7 days of [place] due to missing pain clinic appointment while admitted,directed patient to reschedule as soon as possible History of neovascular glaucoma, vitreous hemorrhage: Ambulatory Ophthalmology referral History of stroke symptoms: Denies CVA history, chronic weakness in all 4 extremities per family. PT/OT evaluated and recommended subacute rehab patient refused and wishes to DC home Surgeries and Procedures AV fistula repain Medication List .. amLODIPine 10 MG tablet Commonly known as: Norvasc Take 1 tablet by mouth daily. aspirin 81 MG chewable tablet Chew 1 tablet daily. Start taking on: June 11, 2025 atorvastatin 80 MG tablet Commonly known as: Lipitor Take 1 tablet by mouth nightly. calcitriol 0.25 MCG capsule Commonly known as: Rocaltrol 1 tablet give at every dialysis treatment carvedilol 12.5 MG tablet Commonly known as: Coreg Take 1 tablet by mouth 2 times a day with meals. doxazosin 2 MG tablet Commonly known as: Cardura Take 1 tablet by mouth daily. escitalopram 10 MG tablet Commonly known as: Lexapro Take 1 tablet by mouth daily. ezetimibe 10 MG tablet Commonly known as: Zetia Take 1 tablet (10 mg) by mouth 1 (one) time each day. hydrALAZINE 25 MG tablet Commonly known as: Apresoline Take 3 tablets by mouth 3 times a day. isosorbide mononitrate ER 60 MG 24 hr tablet Commonly known as: Imdur Take 2 tablets by mouth daily. Do not crush or chew. levothyroxine 88 MCG tablet Commonly known as: Synthroid, Levoxyl Take 1 tablet by mouth daily before breakfast. Start taking on: June 11, 2025 Mircera 200 MCG/0.3ML solution prefilled syringe Generic drug: Methoxy PEG-Epoetin Beta Inject as directed. 200 mcg given at dialysis every 14 days naloxone 4 mg/0.1 mL nasal spray Commonly known as: Narcan 1. Give 1 spray in nostril for no/slow breathing or cannot wake after opioid use 2. Call 911 3. Repeat in other nostril if symptoms continue oxyCODONE-acetaminophen 10-325 MG tablet Commonly known as: Percocet Take 1 tablet by mouth every 8 hours as needed for severe pain for up to 7 days. pantoprazole 20 MG EC tablet Commonly known as: ProtoNix Take 1 tablet by mouth daily before breakfast. Do not crush, chew, or split. Where to Get Your Medications These medications were sent to [facility] [address] [id number] aspirin 81 MG chewable tablet carvedilol 12.5 MG tablet hydrALAZINE 25 MG tablet levothyroxine 88 MCG tablet naloxone 4 mg/0.1 mL nasal spray oxyCODONE-acetaminophen 10-325 MG tablet Discharge Diagnosis Medical Problems Active and Resolved Hospital Problems Hospital ESRD (end stage renal disease) ([facility]) CHF (congestive heart failure) ([facility]) CAD (coronary artery disease) Anemia Severe protein-calorie malnutrition ([facility]) HTN (hypertension) HLD (hyperlipidemia) Hypothyroidism Mood disorder ([facility]) History of glaucoma Chronic obstructive pulmonary disease with acute exacerbation ([facility]) RESOLVED: Pleural effusion * (Principal) RESOLVED: Acute hypoxic respiratory failure RESOLVED: Acute pulmonary edema ([facility]) RESOLVED: GI bleed RESOLVED: Acute encephalopathy Post Discharge Instructions Call your provider call 911 if you experience any of the following: difficulty breathing, headache,visual disturbances, chest pain, inability to eat or drink or take medications, persistent nausea or vomiting, uncontrolled abdominal pain, temperature greater than 100.4 F, visible blood in stool, black/tarry/sticky stools, bloody sputum. Medication changes Start taking aspirin 81 mg daily Decrease carvedilol dose to 12.5 mg twice daily Increase to hydralazine 75 mg 3 times daily You been prescribed 7 days of oxycodone-acetaminophen after missing pain clinic appointment due to hospitalization. Please schedule with pain clinic as soon as possible. Stop taking the following: Acetazolamide, clopidogrel Activity level She remains a high fall risk due to decreased strength/balance/safety awareness/activity tolerance. Team discussed the recommendations of subacute rehab with patient and her family. Patient expressedunderstanding that we recommend at but she would like to discharge home at this time despite remaining a high fall risk. Family states they are arranging for home health with patient's PCP. Outpatient Follow-Up Future Appointments Date Time Provider Department Center 07/05/2025 1:00 PM [facility] Results Pending At Discharge Pertinent Physical Exam At Time of Discharge Physical Exam Constitutional: General: She is not in acute distress. Eyes: General: No scleral icterus. Extraocular Movements: Extraocular movements intact. Pupils: Pupils are unequal. Comments: Chronic L pupil dilation Cardiovascular: Rate and Rhythm: Normal rate. Arteriovenous access: Left arteriovenous access is present. Pulmonary: Effort: Pulmonary effort is normal. No respiratory distress. Abdominal: General: Abdomen is flat. There is no distension. Palpations: Abdomen is soft. Neurological: Mental Status: She is alert and oriented to person, place, and time. Motor: Weakness present. Comments: At Baseline per family Psychiatric: Mood and Affect: Mood normal. Behavior: Behavior normal. Discharge Disposition/Condition Disposition: Home Condition: Stable (s/sx potential problems absent or manageable) I spent >30 minutes of patient care and instruction time in preparation for this discharge. Cosigned by Mayra Rogers MD at 06/10/2025 5:20 PM EDT Associated attestation - Mayra Rogers MD - 06/10/2025 5:20 PM EDT I saw and evaluated the patient. I discussed the case with the resident/fellow and agree with the findings and plan as documented. Ultimately, patient and family decided to go home rather than go to rehab. All felt comfortable with this plan. Discharged with HH/PT/OT. Can resume home outpatient HD schedule on Tuesday. Mayra Rogers MD * Progress Notes - Marcela Andrew MD - 06/10/2025 1:22 PM EDT Diagnosis Code: 03140 Subjective: Patient seen and evaluated on HD. Tolerating well. Notes that she does not feel well today, but could not fully characterize why. Denies SOA. Remains on supplemental oxygen though she notes she doesn't wear this at home. Objective: Vitals Visit Vitals BP (!) 165/58 Pulse 64 Temp 36.7 ??C (98 ??F) (Oral) Resp 16 Ht 1.702 m (5' 7 ) Wt 57.5 kg (126 lb 12.2 oz) SpO2 96% BMI 19.85 kg/m?? OB Status Hysterectomy Smoking Status Every Day BSA 1.65 m?? Temp: [36.3 ??C (97.3 ??F)-36.7 ??C (98 ??F)] 36.7 ??C (98 ??F) Heart Rate: [57-66] 64 Resp: [16-18] 16 BP: (146-186)/(50-71) 165/58 Physical Exam: GENERAL: No acute distress. Laying in bed on dialysis. LUNGS: No increased work of breathing. On supplemental oxygen via nasal cannula. 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 Continue sevelamer 800 mg TID Continue anti-hypertensives. I have seen and examined the patient during dialysis treatment. Dialysis flow sheet, dialysis bath,and machine settings reviewed. Currently patient is tolerating treatment with stable hemodynamics. No issues with current flow settings and access flows are acceptable. BFR: 300-400, DFR: 600-800. Marecla Andrew MD No therapy plan of the specified type found. * Care Plan - Sabrina Lazcano RN - 06/10/2025 8:48 AM EDT Problem: Adult Inpatient Plan of Care Goal: Plan of Care Review Outcome: Ongoing, Progressing Flowsheets (Taken 06/10/2025 0500) Progress: no change Outcome Evaluation: Patient will participate in plan of care Plan of Care Reviewed With: patient Problem: Adult Inpatient Plan of Care Goal: Patient-Specific Goal (Individualized) Outcome: Ongoing, Progressing Flowsheets (Taken 06/09/20251999) Patient/Family-Specific Goals (Include Timeframe): Pt will remain free from falls/injury throughoutthe shift. Individualized Care Needs: safety Anxieties, Fears or Concerns: none stated Problem: Adult Inpatient Plan of Care Goal: Absence of Hospital-Acquired Illness or Injury Outcome: Ongoing, Progressing Intervention: Prevent Skin Injury Flowsheets (Taken 06/10/2025 0400) Skin Protection: incontinence pads utilized Intervention: Prevent Infection Flowsheets (Taken 06/10/2025 0400) Infection Prevention: cohorting utilized environmental surveillance performed hand hygiene promoted Problem: Adult Inpatient Plan of Care Goal: Optimal Comfort and Wellbeing Outcome: Ongoing, Progressing Intervention: Monitor Pain and Promote Comfort Flowsheets (Taken 06/10/2025 0400) Pain Management Interventions: pain management plan reviewed with patient/caregiver Intervention: Provide Person-Centered Care Flowsheets (Taken 06/10/2025 0400) Trust Relationship/Rapport: care explained emotional support provided questions answered thoughts/feelings acknowledged Problem: Skin Injury Risk Increased Goal: Skin Health and Integrity Outcome: Ongoing, Progressing Intervention: Optimize Skin Protection Flowsheets Taken 06/10/2025 0400 Pressure Reduction Techniques: frequent weight shift encouraged weight shift assistance provided Pressure Reduction Devices: pressure-redistributing mattress utilized Skin Protection: incontinence pads utilized Head of Bed (HOB) Positioning: HOB elevated Taken 06/09/20251999 Activity Management: activity adjusted per tolerance Intervention: Promote and Optimize Oral Intake Flowsheets (Taken 06/10/2025 0400) Oral Nutrition Promotion: rest periods promoted Problem: Fall Injury Risk Goal: Absence of Fall and Fall-Related Injury Outcome: Ongoing, Progressing Intervention: Identify and Manage Contributors Flowsheets (Taken 06/10/2025 0400) Medication Review/Management: medications reviewed Self-Care Promotion: independence encouraged BADL personal objects within reach * Progress Notes - Bobby Rose MD - 06/09/2025 10:36 AM EDT Images from the original note were not included. Hospital Medicine Progress Note Subjective Subjective Resting in bed this morning. States she last had a bowel movement 2 days ago but feels she needs togo this morning. She had no acute concerns or questions. Objective Objective Last Recorded Vitals Blood pressure (!) 168/58, pulse 59, temperature 36.7 ??C (98 ??F), temperature source Oral, resp. rate 16, height 1.702 m (5' 7 ), weight 60.3 kg (132 lb 15 oz), SpO2 98%. Physical Exam Constitutional: General: She is not in acute distress. Eyes: Extraocular Movements: Extraocular movements intact. Pupils: Pupils are unequal. Comments: Longstanding left pupil dilation Cardiovascular: Rate and Rhythm: Normal rate. Arteriovenous access: Left arteriovenous access is present. Pulmonary: Effort: Pulmonary effort is normal. No respiratory distress. Comments: On room air Abdominal: General: Abdomen is flat. There is no distension. Palpations: Abdomen is soft. Tenderness: There is no abdominal tenderness. Skin: General: Skin is warm and dry. Neurological: Mental Status: She is alert and oriented to person, place, and time. Data Labs personally reviewed: Significant for normal WBC, stable anemia, low platelets, elevated creatinine, normal K/Mag/phos/AST/ALT/t bili Imaging No new imaging to review Assessment/Plan Assessment & Plan Principal Problem: Acute hypoxic respiratory failure Active Problems: ESRD (end stage renal disease) ([facility]) CHF (congestive heart failure) ([facility]) Pleural effusion Acute pulmonary edema ([facility]) GI bleed Mar Waldron is a 55 y.o. female admitted for acute hypoxic respiratory failure. This condition poses an acute threat to life/bodily function. #Acute hypoxic respiratory failure likely due to volume overload after missing dialysis, complicated by COPD - COPD diagnosis but no PFTs - Doing well, on/off nasal cannula. PLAN - Pulmonology referral outpatient #ESRD on iHD with associated hyperphosphatemia, c/b hypervolemia due to missed dialysis #AGMA, resolved after resuming dialysis - Dialysis chair at [facility] on a MWF schedule - Dry weight 59kg PLAN - Renvela 800 mg TID with meals - Nephrology managing MWF inpatient dialysis #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, Malnutrition, & Inability to Perform ADLs - PT/OT recommended subacute rehab: Referral sent to [facility] - Follow-up bed availability on Tuesday #CAD w/ prior ME with COSME to mLAD with prior stenting - Home medications: Plavix & ASA 325 (pt and family unsure why ASA dose chosen) PLAN - ASA 81 in setting of prior stenting, continue at discharge - Discontinue aspirin 325 mg daily and clopidogrel 75 mg daily at discharge #Renal Mass concerning for RCC - stable - Seen on previous ultrasound and MRI - Initial oncology visit scheduled per pt family #Chronic anemia and thrombocytopenia - Likely due to ESRD PLAN - Further workup outpatient #Acute on chronic CHF (HFpEF) - improved - Volume overload better explained by ESRD w/o HD - ProBNP greater than 70K PLAN - Arrange cardiology follow-up at discharge #Severe Protein-Calorie Malnutrition - High Risk for Refeeding syndrome: daily CMP, Mg, phos monitoring - Art Installer following - Zack once daily, boost three times a day #Stage 3 Pressure Ulcer - Wound care following #Concern for Thrombosed LUE Fistula -Resolved - HD clinic couldn't access AVF 05/31 - Angiogram and resolution, resumed dialysis 06/04 #Acute Encephalopathy - resolved - Family describes progressive cognitive decline over course of years, worsening over past few weeks - Blood cultures negative #Concern for GI Bleed - resolved - Due for colonoscopy; PCP to follow up - Continue PPI BID at discharge #Asymptomatic Sinus Bradycardia - resolved Chronic Medical Conditions #HTN: Hydralazine 50 mg TID, Imdur 120 mg daily, amlodipine 5 mg daily, Coreg 12.5 mg BID #HLD: Continue atorvastatin, Ezetimibe #Chronic Pain: Home reg is oxy 10/ APAP 300mg; oxycodone 5 mg q6h #Left Eye Blindness- ophthalmology follow-up at discharge, left eye chronically dilated #Hx of Stroke Syndrome; denies CVA history, unclear history?, weakness in all 4 extremities withoutfocal deficit, rehab as above #Hypothyroidism: levothyroxine 88 mcg daily #Mood disorder: Lexapro, consider outpatient psych referral NUTRITION: Regular, renal diet (low K/phos) DVT PPX: SQH BOWEL REG: Senna BID. Last BM 06/05 per chart, patient unsure. PRN suppository vs enema Electronically Signed by: Bobby Rose MD - 06/08/2025 - 12:27 PM Cosigned by Mayra Rogers MD at 06/09/2025 1:07 PM EDT Associated attestation - Mayra Rogers MD - 06/09/2025 1:07 PM EDT I saw and evaluated the patient. I discussed the case with the resident/fellow and agree with the findings and plan as documented. Medically ready. Pending placement. Mayra Rogers MD * Progress Notes - Nai Argueta, MANUFACTURING BUSINESS ANALYST - 06/09/2025 8:24 AM EDT Physical Therapy Treatment Patient Name: Mar Waldron Today's Date: 06/09/2025 Total Treatment Time: 24 min PT Discharge Recommendations: Subacute rehab Equipment Recommended: Defer to facility Subjective The patient states, I am doing okay. Participants in Care Family/Caregiver Present: No Decorating Inspector: Not Applicable Presentation Oxygen: Supplemental oxygen Nasal cannula 1 L/min Telemetry: Yes Lines and Tube: Hemodialysis Arteriovenous Fistula Left Forearm (Active) Peripheral IV 06/01/25 Right Antecubital (Active) Pre-Session: Supine, Head of bed elevated, Lines intact RN agreeable to session Post-Session: Sitting in chair, Call light in reach, Lines intact, Chair alarm, RN notified Patientpositioned for comfort and pressure relief. Precautions Medical Precautions: Fall precautions Objective Pain No complaints of pain. Delirium Screening RASS: Alert and calm Confusion Assessment Method-ICU (CAM-ICU/PCAM-ICU) Feature 3: Altered Level of Consciousness: Negative Therapeutic Activity (24 minutes) The patient sat edge of bed for improved activity tolerance to upright position approximately 8 minutes with moderate assist of 1 person, plus 1 person for safety progressing to minimum assist of 1 person, plus 1 person for safety; the patient fatigued easily with sitting edge of bed activities; Verbal, visual, and tactile cues provided throughout treatment session for self-pacing, fall prevention, pursed lip breathing; Therapist monitored patient's vital signs during session to assess patient's continued tolerance to activity. Patient's SpO2 ranged 87%-low 90's when an accurate measurement could be obtained. Please see bed mobility and transfer section for further details. Bed Mobility Bed Mobility Interventions: Verbal cues provided for correct BUE placement and for sequencing. Bed Mobility Exam: Rolling/Turning Level of [place]: Minimum assist (75% patient effort) Physical/Nonphysical Assist: Additional assist utilized for safety, Verbal Cues, Set-up required Assistive Device: Bed rails, Other (drawsheet) Bed Mobility Exam: Scooting/Bridging Level of [place]: Dependent (to scoot to edge of bed in sitting) Physical/Nonphysical Assist: Additional assist utilized for safety, Verbal Cues, Set-up required Assistive Device: Other (drawsheet) Bed Mobility Exam: Supine to Sit Level of [place]: Maximum assist (25% patient's effort) Physical/Nonphysical Assist: Additional assist utilized for safety, HOB elevated, Verbal Cues, Set-up required Assistive Device: Other (drawsheet) Transfers Transfer Intervention: Verbal cues provided for correct bilateral hand and foot placement during sit to stand transfers. Transfer Exam: Sit to stand Level of [place]: Maximum assist (25% patient's effort) Physical/Nonphysical Assist: Additional assist utilized for safety, Verbal Cues, Set-up required Assistive Device: Hand held assist Transfer Exam: Stand to Sit Level of [place]: Maximum assist (25% patient's effort) Physical/Nonphysical Assist: Additional assist utilized for safety, Verbal Cues, Set-up required Assistive Device: Hand held assist Transfer Exam: Bed to Chair/Chair to Bed Level of [place]: Maximum assist (25% patient's effort) Physical/Nonphysical Assist: Additional assist utilized for safety, Verbal Cues, Set-up required Type of Transfer: Sidesteps Assistive Device: Hand held assist Assessment The patient demonstrated improvement with bed to chair transfer as noted by the patient required a decrease in the amount of assistance needed to complete on this date than the previous session. The patient fatigued easily with all activities. The patient demonstrated decreased balance with transfers. The patient is a fall risk. The patient requires assistance for all transfers and bed mobility. The patient is unable to tolerate 3 hours of therapy a day and is most appropriate for subacute rehab. The patient continues to present with the following impairments: decreased strength, decreased balance, decreased safety awareness and decreased activity tolerance. The patient will continue to benefit from skilled PT services to address deficits listed to decrease fall risk and maximize functional mobility levels to promote a safe return to the home. Patient may benefit from Subacute Rehab for the following reasons: Pt remains as a high fall risk and is unsafe for discharge to home Pt would benefit from further instruction improving functional transfers Pt would likely benefit from a short Subacute Rehab stay where patient could become more independent performing transfers Pt would likely benefit more from Subacute Rehab than other rehab services due to pt's medical acuity, level of immobility, and need for improved safety prior to returning home. Pt would likely progress independence of functional mobility towards PLOF with therapy daily, whichis unable to be provided in the home health or acute care hospital settings. PT Recommendations Discharge Destination: Subacute rehab Discharge Equipment: Defer to facility Plan Continue with established PT plan of care 2 - 5 times per week to progress towards PT goals. PT Goals PT GOAL DETAILS Goal Established Date Time Frame Goal Status PT Goal 1: Patient to perform supine <> sit IND with HOB flat and no use of bed rails to simulate home environment. 06/02/25 2 weeks PT Goal 2: Patient to perform sit <> stand with min assist to improve functional mobility. 06/02/25 2 weeks PT Goal 3: Patient to transfer to/from wheelchair with min assist to improve functional mobility and decrease caregiver burden. 06/02/25 2 weeks PT Goal 4: Patient to propel self in wheelchair at least 100ft on even surface with SBA. 06/02/25 2weeks PT Goal 5: Patient to tolerate static/dynamic sitting balance x 10 minutes with SBA to improve sitting balance for participation in upright activity. 06/02/25 2 weeks Written by Nai Argueta PTA on 06/09/25 at 12:02 PM. * Progress Notes - Jigar Miller - 06/09/2025 8:23 AM EDT Occupational Therapy Treatment Patient Name: Mar Waldron Today's Date: 06/09/2025 OT Discharge Recommendations: Subacute rehab Equipment Recommended: Defer to facility Subjective Patient agreeable to OT tx this a.m. Participants in Care Family/Caregiver Present: No Decorating Inspector: Not Applicable Presentation Oxygen Therapy: Supplemental oxygen O2 Delivery Method: Nasal cannula O2 Flow Rate (L/min): 1 L/min Lines and Tubes: Intravenous access, Telemetry Pre-Session: Supine, Head of bed elevated, Lines intact Pre-Session Comments: RN agreeable to session Post-Session: Sitting in chair, Call light in reach, Lines intact, Chair alarm, RN notified Post-Session Comments: Pt positioned for comfort/pressure relief with pillow supports. All needs met. Precautions Medical Precautions: Fall precautions Objective Pain Patient with no c/o pain at this time. Delirium Screening RASS: Alert and calm Confusion Assessment Method-ICU (CAM-ICU/PCAM-ICU) Feature 3: Altered Level of Consciousness: Negative Cognition Cognition Overall Cognitive Status: Within Functional Limits Arousal/Alertness: Appropriate responses to stimuli Mood/Behavior: Alert Orientation Level: Oriented X4 Single Step Commands: Consistently Multi-Step Commands: Consistently Method of Communication: Verbal Safety Judgment: Decreased awareness of need for assistance Awareness of Errors: Assistance required to identify errors made Deficit Awareness: Decreased awareness of deficits Attention Span: Appears intact Bed Mobility Bed Mobility Exam: Rolling/Turning Level of [place]: Minimum assist (75% patient effort) Physical/Nonphysical Assist: Additional assist utilized for safety, Verbal Cues, Set-up required Bed Mobility Exam: Scooting/Bridging Level of [place]: Dependent Physical/Nonphysical Assist: Additional assist utilized for safety, Verbal Cues, Set-up required Bed Mobility Exam: Supine to Sit Level of [place]: Maximum assist (25% patient's effort) Physical/Nonphysical Assist: Additional assist utilized for safety, HOB elevated, Verbal Cues, Set-up required Bed Mobility Exam: Sit to Supine Level of [place]: Maximum assist (25% patient's effort) Physical/Nonphysical Assist: Additional assist utilized for safety Transfers Transfer Exam: Sit to stand Level of [place]: Maximum assist (25% patient's effort) Physical/Nonphysical Assist: Additional assist utilized for safety, Verbal Cues, Set-up required Assistive Device: Hand held assist Transfer Exam: Stand to Sit Level of [place]: Maximum assist (25% patient's effort) Physical/Nonphysical Assist: Additional assist utilized for safety, Verbal Cues, Set-up required Assistive Device: Hand held assist Transfer Exam: Bed to Chair/Chair to Bed Level of [place]: Maximum assist (25% patient's effort) Physical/Nonphysical Assist: Additional assist utilized for safety, Verbal Cues, Set-up required Type of Transfer: Sidesteps Assistive Device: Hand held assist Functional Mobility Therapeutic Activity (10 minutes) Please refer to bed mobility and transfers for intervention details. Patient required verbal cueingand physical assist (hand and feet placement) for set-up, initiation, facilitation, sequencing, andoverall execution of instructed tasks. Therapeutic activity focused on functional task training in order to promote functional strengthening, maximize activity tolerance, and enhance safety awareness. Self-Care Interventions Self Care/Home Management (ADLs) Time Entry: 13 Grooming Grooming Level of Assistance: Setup Grooming Where Assessed: Chair level Lower Extremity Dressing Sock Level of Assistance: Dependent Adult Briefs Level of Assistance: Dependent LE Dressing Where Assessed: Edge of bed Assessment Patient is a fall risk at this time 2/2 decreased endurance and decreased strength. Patient will need KELLY to maximize safety with ADLs and functional mobility. OT Recommendations Discharge Destination: Subacute rehab Discharge Equipment: Defer to facility Plan Continue OT tx plan until discharge to [facility] setting. Goals OT GOAL DETAILS Goal Established Date Time Frame Goal Status OT Goal 1: Pt will demonstrate improved activity tolerance to sit edge of bed times 5 minutes with sba while performing static/dynamic adl tasks before requiring a rest break. 06/02/25 2 weeks OT Goal 2: Pt will complete lower body dressing with mod assist using adaptive equipment as needed. 06/02/25 2 weeks OT Goal 3: Pt will complete toilet transfer with min A using adaptive equipment as needed. 06/02/25 2 weeks Written by Jigar Miller on 06/09/25 at 2:27 PM. * Care Plan - Hazel Pham RN - 06/09/2025 8:15 AM EDT Patient family requesting update about patient possible discharge to subacute rehab. Jeremy Perez [phone] Patient states that she has lost her glasses . She states that they are red with a loose right hinge. ED contacted and notified. Problem: Adult Inpatient Plan of Care Goal: Plan of Care Review 06/09/2025812 by Hazel Pham RN Outcome: Ongoing, Progressing Flowsheets Taken 06/09/2025812 Plan of Care Reviewed With: patient child family Taken 06/08/20252112 Outcome Evaluation: Patient will have an increase in movement and promote independence by EOS. 06/08/20252112 by Hazel Pham RN Outcome: Ongoing, Progressing Flowsheets (Taken 06/08/20252112) Progress: no change Outcome Evaluation: Patient will have an increase in movement and promote independence by EOS. Plan of Care Reviewed With: patient Goal: Patient-Specific Goal (Individualized) 06/09/2025812 by Hazel Pham RN Outcome: Ongoing, Progressing Flowsheets (Taken 06/09/2025 08) Patient/Family-Specific Goals (Include Timeframe): Patient will remain free from injury during shift. Individualized Care Needs: safety and comfort Anxieties, Fears or Concerns: None stated 06/08/20252112 by Hazel Pham RN Outcome: Ongoing, Progressing Flowsheets (Taken 06/08/2025 1600) Patient/Family-Specific Goals (Include Timeframe): patient will remain free from injury during shift Individualized Care Needs: safety and comfort Anxieties, Fears or Concerns: none expressed Goal: Absence of Hospital-Acquired Illness or Injury 06/09/2025812 by Hazel Pham RN Outcome: Ongoing, Progressing 06/08/20252112 by Hazel Pham RN Outcome: Ongoing, Progressing Intervention: Identify and Manage Fall Risk 06/09/2025812 by Hazel Pham RN Flowsheets (Taken 06/09/2025 0800) Safety Promotion/Fall Prevention: activity supervised 06/08/20252112 by Hazel Pham RN Flowsheets (Taken 06/08/2025 1600) Safety Promotion/Fall Prevention: activity supervised Intervention: Prevent Skin Injury 06/09/2025812 by Hazel Pham RN Flowsheets (Taken 06/09/2025 0800) Body Position: turned right Skin Protection: skin sealant/moisture barrier applied 06/08/20252112 by Hazel Pham RN Flowsheets Taken 06/08/2025 1600 Body Position: turned right Taken 06/08/2025799 Skin Protection: skin sealant/moisture barrier applied Intervention: Prevent and Manage VTE (Venous Thromboembolism) Risk 06/09/2025812 by Hazel Pham RN Flowsheets (Taken 06/09/2025 08) VTE Prevention/Management: medication 06/08/20252112 by Hazel Pham RN Flowsheets (Taken 06/08/20252112) VTE Prevention/Management: medication Intervention: Prevent Infection 06/09/2025812 by Hazel Pham RN Flowsheets (Taken 06/09/2025799) Infection Prevention: cohorting utilized hand hygiene promoted 06/08/20252112 by Hazel Pham RN Flowsheets (Taken 06/08/2025799) Infection Prevention: cohorting utilized hand hygiene promoted Goal: Optimal Comfort and Wellbeing 06/09/2025812 by Hazel Pham RN Outcome: Ongoing, Progressing 06/08/20252112 by Hazel Pham RN Outcome: Ongoing, Progressing Intervention: Monitor Pain and Promote Comfort 06/09/2025812 by Hazel Pham RN Flowsheets (Taken 06/09/2025799) Pain Management Interventions: medication (see MAR) [id number] dosing utilized awakened for pain meds per patient request ambulation/increased activity breathing exercises care clustered 06/08/20252112 by Hazel Pham RN Flowsheets (Taken 06/08/2025 1629) Pain Management Interventions: medication (see MAR) [id number] dosing utilized awakened for pain meds per patient request care clustered diversional activity provided emotional support Intervention: Provide Person-Centered Care 06/09/2025812 by Hazel Pham RN Flowsheets (Taken 06/09/2025799) Trust Relationship/Rapport: care explained choices provided emotional support provided empathic listening provided questions answered questions encouraged reassurance provided thoughts/feelings acknowledged 06/08/20252112 by Hazel Pham RN Flowsheets (Taken 06/08/2025799) Trust Relationship/Rapport: care explained choices provided emotional support provided empathic listening provided questions answered questions encouraged reassurance provided thoughts/feelings acknowledged Problem: Skin Injury Risk Increased Goal: Skin Health and Integrity 06/09/2025812 by Hazel Pham RN Outcome: Ongoing, Progressing 06/08/20252112 by Hazel Pham RN Outcome: Ongoing, Progressing Intervention: Optimize Skin Protection 06/09/2025812 by Hazel Pham RN Flowsheets Taken 06/09/2025812 Head of Bed (HOB) Positioning: HOB elevated Taken 06/09/2025799 Activity Management: activity adjusted per tolerance activity encouraged Pressure Reduction Devices: alternating pressure pump (DIGNA) chair cushion utilized heel offloading device utilized positioning supports utilized pressure-redistributing mattress utilized Skin Protection: skin sealant/moisture barrier applied 06/08/20252112 by Hazel Pham RN Flowsheets Taken 06/08/20252112 Head of Bed (HOB) Positioning: HOB at 30-45 degrees Taken 06/08/2025 1600 Activity Management: activity adjusted per tolerance activity encouraged Taken 06/08/2025799 Pressure Reduction Techniques: weight shift assistance provided frequent weight shift encouraged Pressure Reduction Devices: alternating pressure pump (DIGNA) chair cushion utilized heel offloading device utilized positioning supports utilized pressure-redistributing mattress utilized Skin Protection: skin sealant/moisture barrier applied Intervention: Promote and Optimize Oral Intake 06/09/2025812 by Hazel Pham RN Flowsheets (Taken 06/09/2025799) Oral Nutrition Promotion: rest periods promoted social interaction promoted calorie-dense foods provided calorie-dense liquids provided Nutrition Interventions: food preferences provided 06/08/20252112 by Hazel Pham RN Flowsheets (Taken 06/08/2025799) Oral Nutrition Promotion: rest periods promoted social interaction promoted calorie-dense foods provided calorie-dense liquids provided Nutrition Interventions: food preferences provided Problem: Fall Injury Risk Goal: Absence of Fall and Fall-Related Injury 06/09/2025812 by Hazel Pham RN Outcome: Ongoing, Progressing 06/08/20252112 by Hazel Pham RN Outcome: Ongoing, Progressing Intervention: Identify and Manage Contributors 06/09/2025812 by Hazel Pham RN Flowsheets Taken 06/09/2025 08 Medication Review/Management: medications reviewed provider consulted Taken 06/08/20252112 Self-Care Promotion: independence encouraged BADL personal objects within reach 06/08/20252112 by Hzael Pham RN Flowsheets Taken 06/08/20252112 Self-Care Promotion: independence encouraged BADL personal objects within reach Taken 06/08/2025 08 Medication Review/Management: medications reviewed provider consulted Intervention: Promote Injury-Free Environment 06/09/2025812 by Hazel Pham RN Flowsheets (Taken 06/09/2025 08) Safety Promotion/Fall Prevention: activity supervised 06/08/20252112 by Hazel Pham RN Flowsheets (Taken 06/08/2025 1600) Safety Promotion/Fall Prevention: activity supervised Problem: Gas Exchange Impaired Goal: Optimal Gas Exchange 06/09/2025812 by Hazel Pham RN Outcome: Ongoing, Progressing 06/08/20252112 by Hazel Pham RN Outcome: Ongoing, Progressing Intervention: Optimize Oxygenation and Ventilation 06/09/2025812 by Hazel Pham RN Flowsheets Taken 06/09/2025812 Head of Bed (HOB) Positioning: HOB elevated Taken 06/09/2025799 Airway/Ventilation Management: airway patency maintained oxygen therapy provided pulmonary hygiene promoted 06/08/20252112 by Hazel Pham RN Flowsheets Taken 06/08/20252112 Head of Bed (HOB) Positioning: HOB at 30-45 degrees Taken 06/08/2025 08 Airway/Ventilation Management: airway patency maintained oxygen therapy provided pulmonary hygiene promoted Problem: Mobility Impairment Goal: Optimal Mobility 06/09/2025812 by Hazel Pham RN Outcome: Ongoing, Progressing 06/08/20252112 by Hazel Pham RN Outcome: Ongoing, Progressing Intervention: Optimize Mobility 06/09/2025812 by Hazel Pham RN Flowsheets Taken 06/09/2025812 Assistive Device Utilized: wheelchair Positioning/Transfer Devices: in use pillows repositioning sheet Taken 06/09/2025 0800 Activity Management: activity adjusted per tolerance activity encouraged 06/08/20252112 by Hazel Pham RN Flowsheets Taken 06/08/20252112 Assistive Device Utilized: wheelchair Positioning/Transfer Devices: wedge pillows Taken 06/08/2025 1600 Activity Management: activity adjusted per tolerance activity encouraged Problem: Hemodialysis Goal: Safe, Effective Therapy Delivery 06/09/2025812 by Hazel Pham RN Outcome: Ongoing, Progressing 06/08/20252112 by Hazel Pham RN Outcome: Ongoing, Progressing Intervention: Optimize Device Care and Function Flowsheets Taken 06/08/20252112 Circuit Management: air detection alarms on Taken 06/08/2025 08 Medication Review/Management: medications reviewed provider consulted Goal: Effective Tissue Perfusion 06/09/2025812 by Hazel Pham RN Outcome: Ongoing, Progressing 06/08/20252112 by Hazel Pham RN Outcome: Ongoing, Progressing Intervention: Optimize Blood Flow Flowsheets (Taken 06/08/2025 08) Stabilization Measures: legs elevated Goal: Absence of Infection Signs and Symptoms 06/09/2025812 by Hazel Pham RN Outcome: Ongoing, Progressing 06/08/20252112 by Hazel Pham RN Outcome: Ongoing, Progressing Intervention: Prevent or Manage Infection Flowsheets (Taken 06/08/2025 08) Infection Management: aseptic technique maintained Fever Reduction/Comfort Measures: lightweight bedding Infection Prevention: cohorting utilized hand hygiene promoted * Care Plan - Aranza Santos RN - 06/09/2025 3:39 AM EDT Problem: Adult Inpatient Plan of Care Goal: Plan of Care Review Flowsheets (Taken 06/09/2025 0332) Progress: no change Plan of Care Reviewed With: patient Goal: Patient-Specific Goal (Individualized) Flowsheets (Taken 06/09/2025 0000) Patient/Family-Specific Goals (Include Timeframe): pt will remain free from injury during this shift Individualized Care Needs: safety Anxieties, Fears or Concerns: none expressed Goal: Absence of Hospital-Acquired Illness or Injury Intervention: Prevent Skin Injury Flowsheets (Taken 06/09/2025331) Body Position: turned Skin Protection: incontinence pads utilized skin sealant/moisture barrier applied Goal: Optimal Comfort and Wellbeing Intervention: Monitor Pain and Promote Comfort Flowsheets (Taken 06/09/2025331) Pain Management Interventions: medication (see MAR) emotional support pillow support provided quiet environment facilitated Problem: Skin Injury Risk Increased Goal: Skin Health and Integrity Intervention: Optimize Skin Protection Flowsheets (Taken 06/09/2025331) Activity Management: activity adjusted per tolerance activity encouraged education provided Pressure Reduction Techniques: weight shift assistance provided Pressure Reduction Devices: alternating pressure pump (DIGNA) foam padding utilized Skin Protection: incontinence pads utilized skin sealant/moisture barrier applied Head of Bed (HOB) Positioning: HOB elevated Problem: Fall Injury Risk Goal: Absence of Fall and Fall-Related Injury Intervention: Promote Injury-Free Environment Flowsheets (Taken 06/09/2025331) Safety Promotion/Fall Prevention: activity supervised nonskid shoes/slippers when out of bed lighting adjusted room organization consistent Problem: Gas Exchange Impaired Goal: Optimal Gas Exchange Intervention: Optimize Oxygenation and Ventilation Flowsheets (Taken 06/09/2025331) Airway/Ventilation Management: oxygen therapy provided airway patency maintained Head of Bed (HOB) Positioning: HOB elevated Problem: Mobility Impairment Goal: Optimal Mobility Intervention: Optimize Mobility Flowsheets (Taken 06/09/2025331) Activity Management: activity adjusted per tolerance activity encouraged education provided Assistive Device Utilized: wheelchair Positioning/Transfer Devices: repositioning sheet pillows Problem: Hemodialysis Goal: Absence of Infection Signs and Symptoms Intervention: Prevent or Manage Infection Flowsheets (Taken 06/09/2025331) Infection Management: aseptic technique maintained Fever Reduction/Comfort Measures: lightweight bedding lightweight clothing Infection Prevention: cohorting utilized environmental surveillance performed hand hygiene promoted * Care Plan - Hazel Pham RN - 06/08/2025 9:15 PM EDT Problem: Adult Inpatient Plan of Care Goal: Plan of Care Review Outcome: Ongoing, Progressing Flowsheets (Taken 06/08/20252112) Progress: no change Outcome Evaluation: Patient will have an increase in movement and promote independence by EOS. Plan of Care Reviewed With: patient Goal: Patient-Specific Goal (Individualized) Outcome: Ongoing, Progressing Flowsheets (Taken 06/08/20251599) Patient/Family-Specific Goals (Include Timeframe): patient will remain free from injury during shift Individualized Care Needs: safety and comfort Anxieties, Fears or Concerns: none expressed Goal: Absence of Hospital-Acquired Illness or Injury Outcome: Ongoing, Progressing Aseptic technique promoted. Intervention: Identify and Manage Fall Risk Flowsheets (Taken 06/08/20251599) Safety Promotion/Fall Prevention: activity supervised Intervention: Prevent Skin Injury Flowsheets Taken 06/08/20251599 Body Position: turned right Taken 06/08/2025799 Skin Protection: skin sealant/moisture barrier applied Intervention: Prevent and Manage VTE (Venous Thromboembolism) Risk Flowsheets (Taken 06/08/20252112) VTE Prevention/Management: medication Intervention: Prevent Infection Flowsheets (Taken 06/08/2025799) Infection Prevention: cohorting utilized hand hygiene promoted Goal: Optimal Comfort and Wellbeing Outcome: Ongoing, Progressing Socialization encouraged. Phone calls from son encouraged. Intervention: Monitor Pain and Promote Comfort Flowsheets (Taken 06/08/2025 1629) Pain Management Interventions: medication (see MAR) [id number] dosing utilized awakened for pain meds per patient request care clustered diversional activity provided emotional support Intervention: Provide Person-Centered Care Flowsheets (Taken 06/08/2025799) Trust Relationship/Rapport: care explained choices provided emotional support provided empathic listening provided questions answered questions encouraged reassurance provided thoughts/feelings acknowledged Problem: Skin Injury Risk Increased Goal: Skin Health and Integrity Outcome: Ongoing, Progressing Intervention: Optimize Skin Protection Flowsheets Taken 06/08/20252112 Head of Bed (HOB) Positioning: HOB at 30-45 degrees Taken 06/08/20251599 Activity Management: activity adjusted per tolerance activity encouraged Taken 06/08/2025799 Pressure Reduction Techniques: weight shift assistance provided frequent weight shift encouraged Pressure Reduction Devices: alternating pressure pump (DIGNA) chair cushion utilized heel offloading device utilized positioning supports utilized pressure-redistributing mattress utilized Skin Protection: skin sealant/moisture barrier applied Intervention: Promote and Optimize Oral Intake Flowsheets (Taken 06/08/2025799) Oral Nutrition Promotion: rest periods promoted social interaction promoted calorie-dense foods provided calorie-dense liquids provided Nutrition Interventions: food preferences provided Problem: Fall Injury Risk Goal: Absence of Fall and Fall-Related Injury Outcome: Ongoing, Progressing Fall bundle in compliance. Hourly rounding utilized. Intervention: Identify and Manage Contributors Flowsheets Taken 06/08/20252112 Self-Care Promotion: independence encouraged BADL personal objects within reach Taken 06/08/2025799 Medication Review/Management: medications reviewed provider consulted Intervention: Promote Injury-Free Environment Flowsheets (Taken 06/08/2025 1600) Safety Promotion/Fall Prevention: activity supervised Problem: Gas Exchange Impaired Goal: Optimal Gas Exchange Outcome: Ongoing, Progressing Intervention: Optimize Oxygenation and Ventilation Flowsheets Taken 06/08/20252112 Head of Bed (HOB) Positioning: HOB at 30-45 degrees Taken 06/08/2025799 Airway/Ventilation Management: airway patency maintained oxygen therapy provided pulmonary hygiene promoted Problem: Mobility Impairment Goal: Optimal Mobility Outcome: Ongoing, Progressing Intervention: Optimize Mobility Flowsheets Taken 06/08/20252112 Assistive Device Utilized: wheelchair Positioning/Transfer Devices: wedge pillows Taken 06/08/2025 1600 Activity Management: activity adjusted per tolerance activity encouraged Problem: Hemodialysis Goal: Safe, Effective Therapy Delivery Outcome: Ongoing, Progressing Intervention: Optimize Device Care and Function Flowsheets Taken 06/08/20252112 Circuit Management: air detection alarms on Taken 06/08/2025799 Medication Review/Management: medications reviewed provider consulted Goal: Effective Tissue Perfusion Outcome: Ongoing, Progressing Intervention: Optimize Blood Flow Flowsheets (Taken 06/08/2025 0800) Stabilization Measures: legs elevated Goal: Absence of Infection Signs and Symptoms Outcome: Ongoing, Progressing Intervention: Prevent or Manage Infection Flowsheets (Taken 06/08/2025799) Infection Management: aseptic technique maintained Fever Reduction/Comfort Measures: lightweight bedding Infection Prevention: cohorting utilized hand hygiene promoted * Progress Notes - Bobby Rose MD - 06/08/2025 12:27 PM EDT Images from the original note were not included. Hospital Medicine Progress Note Subjective Subjective Resting in bed on room air, satting >92%. Still wishes to pursue rehab placement. Feeling tired due to remaining hospitalized. Still wishing to be placed at acute rehab. Objective Objective Last Recorded Vitals Blood pressure (!) 176/60, pulse 76, temperature 36.4 ??C (97.5 ??F), resp. rate 18, height 1.702 m(5' 7 ), weight 60.3 kg (132 lb 15 oz), SpO2 97%. Physical Exam Constitutional: General: She is not in acute distress. Eyes: Extraocular Movements: Extraocular movements intact. Pupils: Pupils are unequal. Comments: Longstanding left pupil dilation Cardiovascular: Rate and Rhythm: Normal rate. Arteriovenous access: Left arteriovenous access is present. Pulmonary: Effort: Pulmonary effort is normal. No respiratory distress. Comments: On room air Skin: General: Skin is warm and dry. Neurological: Mental Status: She is alert and oriented to person, place, and time. Data Labs personally reviewed: Significant for normal WBC, stable anemia, stable thrombocytopenia, normal K, elevated creatinine/BUN, normal phos/mac Imaging No new imaging to review Assessment/Plan Assessment & Plan Principal Problem: Acute hypoxic respiratory failure Active Problems: ESRD (end stage renal disease) ([facility]) CHF (congestive heart failure) ([facility]) Pleural effusion Acute pulmonary edema ([facility]) GI bleed Mar Waldron is a 55 y.o. female admitted for acute hypoxic respiratory failure. This condition poses an acute threat to life/bodily function. #Acute hypoxic respiratory failure likely due to volume overload after missing dialysis, complicated by COPD - COPD diagnosis but no PFTs - Low concern for infectious cause given negative respiratory panel, no obvious suggestive labs or other signs or symptoms PLAN - MWF iHD schedule - Pulmonology referral outpatient #ESRD on iHD with associated hyperphosphatemia, c/b hypervolemia due to missed dialysis #AGMA, resolved after resuming dialysis - Dialysis chair at [facility] on a MWF schedule - Dry weight 59kg PLAN - Renvela 800 mg TID with meals - Hold other scheduled dialysis medications at this time - Nephrology following #Chronic anemia and thrombocytopenia - Anemia and thrombocytopenia better explained by ESRD PLAN - Further workup outpatient, possible need for UMESH in the futur #CAD w/ prior ME with COSME to mLAD with prior stenting - Home medications: Plavix & ASA 325 (pt and family unsure why ASA dose chosen) PLAN - ASA 81 in setting of prior stenting, continue at discharge - Discontinue aspirin 325 mg daily and clopidogrel 75 mg daily at discharge #Renal Mass concerning for RCC - stable - Seen on previous ultrasound and MRI - Initial oncology appointments scheduled #Acute on chronic CHF (HFpEF) - improved - Volume overload better explained by ESRD w/o HD - ProBNP greater than 70K PLAN - Establish cardiology follow-up outpatient #Severe Protein-Calorie Malnutrition - High Risk for Refeeding - Art Installer following - Zack once daily, boost three times a day #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, Malnutrition, & Inability to Perform ADLs - PT/OT recommended subacute rehab: Referral sent to [facility] #Stage 3 Pressure Ulcer - Wound care following #Concern for Thrombosed LUE Fistula -Resolved - HD clinic had difficulty accessing fistula on 05/31/2025 - Successful angiogram with declot on 06/04/2025; dialysis followed same day #Acute Encephalopathy - resolved - Family describes progressive cognitive decline over course of years, worsening over past few weeks - Metabolic- BG wnl; evelated TSH with T4 0.06 (consistent with previous lab 1mo ago) - Blood cultures negative #Concern for GI Bleed - resolved - Stable on PPI BID - Due for colonoscopy; PCP to follow up #Asymptomatic Sinus Bradycardia - resolved - History of hypothyroidism, takes carvedilol 25 mg daily twice daily; Hemodynamically stable - D/C home carvedilol; continue levothyroxine 88 mcg daily; previous dose 75 mcg daily Chronic Medical Conditions #HTN: Hydralazine 50 mg TID, Imdur 120 mg daily, amlodipine 5 mg daily. Hold home Coreg #HLD: Continue atorvastatin, Ezetimibe #Chronic Pain: Home reg is oxy 10/ APAP 300mg; oxycodone 5 mg q6h #Left Eye Blindness- ophthalmology follow-up at discharge, left eye mydriasis #Hx of Stroke Syndrome; patient denies CVA history, unclear history?, weakness in all 4 extremitieswithout focal deficit, PT/OT as above #Hypothyroidism: levothyroxine 88 mcg daily #Mood disorder: Lexapro, consider outpatient psych referral NUTRITION: Regular, renal diet (low K/phos) DVT PPX: SQH BOWEL REG: Senna BID. Last BM 06/05 per chart, patient unsure. Consider enema vs suppository 06/09 ifno still BM Electronically Signed by: Bobby Rose MD - 06/08/2025 - 12:27 PM Cosigned by Mayra Rogers MD at 06/08/2025 5:23 PM EDT Associated attestation - Mayra Rogers MD - 06/08/2025 5:23 PM EDT I saw and evaluated the patient with the resident/fellow. I discussed the case with the resident/fellow and agree with the findings and plan as documented. Doing well today. On/off oxygen. Medically ready for discharge when placement found. Mayra Rogers MD * Progress Notes - Mayra Brody - 06/08/2025 10:31 AM EDT Case Management Adult Progress Note Mar Waldron 55 y.o. female CSN: [id number] Admission: 06/01/2025 4:48 PM Primary Problem: Acute hypoxic respiratory failure SW received hand off to follow up on referral with Milagros at [facility] [phone]. SW left for call back. will update when call back is received. Mayra Brody EDUCATIONAL PROGRAMMING DIRECTOR, BIOMETRIC TECHNICIAN Case Management * Care Plan - Aranza Santos RN - 06/08/2025 4:53 AM EDT Problem: Adult Inpatient Plan of Care Goal: Plan of Care Review Flowsheets (Taken 06/08/2025 8230) Progress: no change Plan of Care Reviewed With: patient Goal: Patient-Specific Goal (Individualized) Flowsheets (Taken 06/08/2025 0400) Patient/Family-Specific Goals (Include Timeframe): pt will remain free from injury during this shift Individualized Care Needs: safety Anxieties, Fears or Concerns: none expressed Goal: Absence of Hospital-Acquired Illness or Injury Intervention: Identify and Manage Fall Risk Flowsheets (Taken 06/08/2025448) Safety Promotion/Fall Prevention: activity supervised lighting adjusted room organization consistent safety round/check completed Intervention: Prevent Infection Flowsheets (Taken 06/08/2025448) Infection Prevention: hand hygiene promoted rest/sleep promoted visitors restricted/screened Goal: Optimal Comfort and Wellbeing Intervention: Monitor Pain and Promote Comfort Flowsheets (Taken 06/08/2025448) Pain Management Interventions: emotional support pillow support provided position adjusted Problem: Skin Injury Risk Increased Goal: Skin Health and Integrity Intervention: Promote and Optimize Oral Intake Flowsheets (Taken 06/08/2025448) Nutrition Interventions: food preferences provided Problem: Fall Injury Risk Goal: Absence of Fall and Fall-Related Injury Intervention: Identify and Manage Contributors Flowsheets (Taken 06/08/2025448) Medication Review/Management: medications reviewed Self-Care Promotion: independence encouraged BADL personal objects within reach Problem: Gas Exchange Impaired Goal: Optimal Gas Exchange Intervention: Optimize Oxygenation and Ventilation Flowsheets (Taken 06/08/2025448) Airway/Ventilation Management: oxygen therapy provided Head of Bed (HOB) Positioning: HOB elevated Problem: Mobility Impairment Goal: Optimal Mobility Intervention: Optimize Mobility Flowsheets (Taken 06/08/2025448) Activity Management: activity adjusted per tolerance Assistive Device Utilized: front wheel walker Positioning/Transfer Devices: pillows * Clinician Note - Jigar Miller - 06/07/2025 12:18 PM EDT Occupational Therapy Attempt Patient Name: Mar Waldron Today's Date: 06/07/2025 Patient was attempted to be seen by occupational therapy 06/07/2025 for OT Treatment however patientoff the floor. Occupational therapy team will follow-up as schedule permits. Patient in HD at this time per RN. Written by Jigar Miller on 06/07/25 at 12:18 PM. * Clinician Note - Chela Oneill - 06/07/2025 12:00 PM EDT Physical Therapy Attempt Patient Name: Mar Waldron Today's Date: 06/07/2025 Patient was attempted to be seen by physical therapy 06/07/2025 for PT Treatment however patient offthe floor (Patient in HD at this time per RN.) . Physical therapy team will follow-up as schedule permits/ pt available. Written by Chela Oneill on 06/07/25 at 2:36 PM. * Care Plan - Ean Cowart RN - 06/07/2025 11:04 AM EDT Problem: Adult Inpatient Plan of Care Goal: Plan of Care Review Flowsheets (Taken 06/07/2025 1102) Progress: no change Plan of Care Reviewed With: patient Goal: Patient-Specific Goal (Individualized) Flowsheets (Taken 06/07/2025 0700) Patient/Family-Specific Goals (Include Timeframe): Patient will remain free from falls/injury during this shift. Individualized Care Needs: safety Anxieties, Fears or Concerns: none stated Goal: Absence of Hospital-Acquired Illness or Injury Intervention: Identify and Manage Fall Risk Flowsheets (Taken 06/07/2025 1102) Safety Promotion/Fall Prevention: activity supervised assistive device/personal items within reach clutter-free environment maintained Intervention: Prevent Skin Injury Flowsheets (Taken 06/07/2025 1102) Body Position: left turned Intervention: Prevent and Manage VTE (Venous Thromboembolism) Risk Flowsheets (Taken 06/07/2025 1102) VTE Prevention/Management: bilateral SCDs (sequential compression devices) on Intervention: Prevent Infection Flowsheets (Taken 06/07/2025 1102) Infection Prevention: hand hygiene promoted Problem: Skin Injury Risk Increased Goal: Skin Health and Integrity Intervention: Optimize Skin Protection Flowsheets (Taken 06/07/2025 1102) Activity Management: activity adjusted per tolerance activity encouraged Head of Bed (HOB) Positioning: HOB at 20 degrees Intervention: Promote and Optimize Oral Intake Flowsheets (Taken 06/07/2025 1102) Nutrition Interventions: food preferences provided Problem: Fall Injury Risk Goal: Absence of Fall and Fall-Related Injury Intervention: Identify and Manage Contributors Flowsheets (Taken 06/07/2025 1102) Medication Review/Management: medications reviewed dosing adjusted Self-Care Promotion: independence encouraged BADL personal objects within reach Intervention: Promote Injury-Free Environment Flowsheets (Taken 06/07/2025 1102) Safety Promotion/Fall Prevention: activity supervised assistive device/personal items within reach clutter-free environment maintained Problem: Gas Exchange Impaired Goal: Optimal Gas Exchange Intervention: Optimize Oxygenation and Ventilation Flowsheets (Taken 06/07/2025 1102) Airway/Ventilation Management: oxygen therapy provided Head of Bed (HOB) Positioning: HOB at 20 degrees Problem: Mobility Impairment Goal: Optimal Mobility Intervention: Optimize Mobility Flowsheets (Taken 06/07/2025 1102) Activity Management: activity adjusted per tolerance activity encouraged Assistive Device Utilized: front wheel walker Problem: Hemodialysis Goal: Safe, Effective Therapy Delivery Intervention: Optimize Device Care and Function Flowsheets (Taken 06/07/2025 1102) Medication Review/Management: medications reviewed dosing adjusted Goal: Effective Tissue Perfusion Intervention: Optimize Blood Flow Flowsheets (Taken 06/07/2025 110) Stabilization Measures: legs elevated Goal: Absence of Infection Signs and Symptoms Intervention: Prevent or Manage Infection Flowsheets (Taken 06/07/2025 1102) Infection Management: aseptic technique maintained Fever Reduction/Comfort Measures: lightweight bedding Infection Prevention: hand hygiene promoted * Consults - Sobia Russo RD - 06/07/2025 9:07 AM EDT Adult Nutrition Evaluation Note Mar Waldron 55 y.o. female CSN: [id number] Room/Bed 643/542F Nutrition evaluation type: assessment Reason for evaluation: [facility] Hospital course: 55 yoF presents to ED 06/01 with concern for thrombosed fistula. Pt son recently moved her from [place] to [place] d/t concerns of overall health and well-being: weight loss, missing dialysis, pressure injuries. Past medical/ surgical history: Past Medical History[1] Surgical History[2] Social history: Social History[3] Additional comments: Attempted to see patient for nutrition assessment, however patient not in roomand off the floor at time of visit. Vitals and Basic Assessment: BP: (!) 176/46 Temp: 36.3 ??C (97.4 ??F) Oxygen Therapy: Supplemental oxygen O2 Delivery Method: Nasal cannula [place] Coma Scale Score: 14 Ranjeet Scale Score: 15 Most Recent BM Date: 06/05/25 GI Symptoms: Constipation Edema: Right lower extremity, Left lower extremity Allergies: NKFA Medications: Current Scheduled Medications[4] Current Continuous Medications[5] Current PRN Medications[6] Meds were reviewed: Yes Labs: Lab Results Component Value Date GLUCOSE 90 06/07/2025 CALCIUM 8.4 (L) 06/07/2025 NA 139 06/07/2025 K 4.4 06/07/2025 CO2 24 06/07/2025 CL 99 06/07/2025 BUN 64 (H) 06/07/2025 CREATININE 4.03 (H) 06/07/2025 PHOS 5.1 (H) 06/07/2025 MG 2.2 06/07/2025 HGBA1C 5.7 (H) 06/30/2024 Anthropometrics: Height: 170.2 cm (5' 7 ) Weight: 60.3 kg (132 lb 15 oz) BMI (Calculated): 20.82 Weight Evaluation: Normal (BMI 18.5-24.9) [place] Body Weight (kg): 61.3 Percent [place] Body Weight: 97 Estimated Needs: Metabolic Cart Study Results: Current Nutrition Intake: Diet Supplements: None Diet Order: Adult Diet Diet Texture: Regular Electrolyte Restriction: Renal Percent Meals Eaten (%): None recorded to review Diet Experience and Nutrition History: Diet Education Provided: Will monitor Pertinent home medications: atorvastatin, calcitriol, levothyroxine, protonix [facility] needs: Nutrition Focused Physical Exam: Unable to Complete Exam: Patient out of room Physical exam performed on (date): Assessment of Malnutrition: Nutrition Problem: Increased nutrient needs pro related to increased metabolic demand for healing and losses via dialysis as evidenced by wound and dialysis. Status of Nutrition Diagnosis: New Nutrition Interventions and Recommendations: - Continue Boost Breeze TID - Continue current diet order - Add Zack one time per day (increase to BID if kidney function improves) - Please record daily meal intakes on flowsheet Nutrition Monitoring and Goals: - PO intake > 75% of most meals - NFPE at follow up as able - Monitor po intake and tolerance, weight changes, labs, GI function and skin integrity. - Wound healing/improvement Acuity Level: [address], LD [1] Past Medical History: Diagnosis Date Arthritis CHF (congestive heart failure) (CMS/HCC) Chronic renal failure Coronary artery disease Diabetes mellitus (CMS/HCC) HTN (hypertension) Hypothyroidism Renal cancer (CMS/HCC) [2] Past Surgical History: Procedure Laterality Date APPENDECTOMY SECTION, LOW TRANSVERSE CHOLECYSTECTOMY CORONARY ARTERY BYPASS GRAFT Bilateral HYSTERECTOMY TONSILLECTOMY [3] Social History Tobacco Use Smoking status: Every Day Substance Use Topics Alcohol use: No [4] amLODIPine, 5 mg, Oral, Daily aspirin, 81 mg, Oral, Daily atorvastatin, 80 mg, Oral, Nightly doxazosin, 2 mg, Oral, Nightly escitalopram, 10 mg, Oral, Daily eucerin, 1 Application, Topical, BID ezetimibe, 10 mg, Oral, Daily heparin (porcine), 5,000 Units, Subcutaneous, q8h CALEB hydrALAZINE, 50 mg, Oral, TID isosorbide mononitrate ER, 120 mg, Oral, Daily Zack, 1 packet, Oral, Daily levothyroxine, 88 mcg, Oral, Daily before breakfast pantoprazole, 40 mg, Oral, Daily senna, 2 tablet, Oral, BID sevelamer carbonate, 800 mg, Oral, TID with meals [5] sodium chloride, 10 mL/hr [6] PRN medications: ondansetron, oxyCODONE * Progress Notes - Jenae Jones MD - 06/07/2025 8:52 AM EDT [facility] Progress Note Patient: Mar Waldron Admit Date: 06/01/2025 Reason for Consult: ESRD Subjective Reviewed the interval events, flowsheets, labs and the notes. No acute events overnight. Seen in iHD unit this AM. Feeling overall unwell but agreeable to complete full HD session. Objective Visit Vitals BP (!) 197/61 Pulse 61 Temp 36.4 ??C (97.6 ??F) (Oral) Resp 16 Ht 1.702 m (5' 7 ) Wt 60.3 kg (132 lb 15 oz) SpO2 93% BMI 20.82 kg/m?? OB Status Hysterectomy Smoking Status Every Day BSA 1.69 m?? Temp: [36.3 ??C (97.4 ??F)-36.6 ??C (97.9 ??F)] 36.4 ??C (97.6 ??F) Heart Rate: [60-68] 61 Resp: [16] 16 BP: (134-197)/(52-103) 197/61 No intake or output data in the 24 hours ending 06/07/25 0852 Problem List Problem List[1] Medications: Current Medications: Current Scheduled Medications[2] Current Continuous Medications[3] Physical Exam: Gen: Chronically ill-appearing, NAD HEENT: MMM, OP clear without lesions or exudate Neck: Supple CV: Warm and well perfused Pulm: Normal respiratory effort, on room air Abd: Soft, non-tender, non-distended. Ext: Trace edema Skin: No jaundice. No rashes noted on observed skin Neuro: Alert, follows simple commands. Moving all extremities Access: LUE AVF, bleeding at cannulation site Laboratory: Renal Panel: Lab Results Component Value Date NA 139 06/07/2025 K 4.4 06/07/2025 CL 99 06/07/2025 CO2 24 06/07/2025 BUN 64 (H) 06/07/2025 PHOS 5.1 (H) 06/07/2025 MBD: Lab Results Component Value Date CALCIUM 8.4 (L) 06/07/2025 CAION 4.5 (L) 06/01/2025 PHOS 5.1 (H) 06/07/2025 CBC: Lab Results Component Value Date WBC 6.72 06/07/2025 RBC 2.99 (L) 06/07/2025 HGB 7.8 (L) 06/07/2025 HCT 28.4 (L) 06/07/2025 PLT 43 (L) 06/07/2025 MCV 95 06/07/2025 MCH 26.1 06/07/2025 MCHC 27.5 (L) 06/07/2025 RDW 15.9 (H) 06/07/2025 NRBC 0.0 06/07/2025 Iron studies: Lab Results Component Value Date TIBC 234 (L) 06/28/2024 Impression & Plan: Ms. Mar Waldron is a 55 y.o. woman with a hx of ESRD on HD, HTN, COPD, CAD s/p CABG/PCI/COSME, HLD, and HFpEF who was admitted to [facility] on 06/02 for concerns of thrombosed fistula. Outpatient HD: - Schedule: MWF - Dialysis Unit: [facility] - Outpatient Machine Tracer: Dr. Summers - Residual renal functions: Minimal - EDW: 59 kg - Access: LUE AVF Assessment and Plan: #AVF malfunction s/p angio 06/04 #Hypervolemia #Hypertension #Anemia in CKD #CKD-MBD #ESRD on HD #Azotemia #Left Inferior Pole Renal Mass - Noted on MRI from February 2025 - has Urology appt scheduled in June - iHD today to resume MWF schedule. - Rx: 3hrs, BFR 300-400 mL/min, DFR 600-800 mL/min, 3K, 2.25Ca, 32HCO3, 138Na, UF 2L, T35.5 C - Continue home anti-hypertensives Will assess need for UMESH; Hgb currently 7.4 - Continue anti-hypertensives, agree with increased doses made per primary team - Please continue home Phos binders (Renvela) when tolerating PO - Recommend low K, low P diet while inpatient - Please renally dose medications for iHD Nephrology will continue to follow for the duration of this admission. Please call or page with anyquestions. Jenae Jones MD Nephrology Fellow PGY-5 Page: [phone] [1] Patient Active Problem List Diagnosis Volume overload ESRD (end stage renal disease) (CMS/HCC) CHF (congestive heart failure) (CMS/HCC) Pleural effusion Acute hypoxic respiratory failure Acute pulmonary edema (CMS/HCC) GI bleed [2] amLODIPine, 5 mg, Oral, Daily aspirin, 81 mg, Oral, Daily atorvastatin, 80 mg, Oral, Nightly doxazosin, 2 mg, Oral, Nightly escitalopram, 10 mg, Oral, Daily eucerin, 1 Application, Topical, BID ezetimibe, 10 mg, Oral, Daily heparin (porcine), 5,000 Units, Subcutaneous, q8h CALEB hydrALAZINE, 50 mg, Oral, TID levothyroxine, 88 mcg, Oral, Daily before breakfast pantoprazole, 40 mg, Oral, Daily senna, 2 tablet, Oral, BID sevelamer carbonate, 800 mg, Oral, TID with meals [3] sodium chloride, 10 mL/hr Cosigned by Tiny Summers MD at 06/07/2025 11:37 AM EDT Associated attestation - Tiny Summers MD - 06/07/2025 11:37 AM EDT I saw and evaluated the patient with the resident/fellow. I discussed the case with the resident/fellow and agree with the findings and plan as documented. Hemodialysis Procedure Note: I saw and evaluated the patient during dialysis treatment. Patient is tolerating treatment with relatively stable hemodynamics. Dialysis flowsheet, dialysis bath and machine settings reviewed. No issues with current flow settings and access flows are acceptable. BFR 300-400 ml/min, DFR 600-800 ml/min, UF 1-2L as tolerated. Please see dialysis flowsheet for treatment'sdetails * Care Plan - Aranza Santos RN - 06/07/2025 7:25 AM EDT Problem: Adult Inpatient Plan of Care Goal: Plan of Care Review Outcome: Ongoing, Progressing Flowsheets (Taken 06/07/2025 0722) Progress: no change Plan of Care Reviewed With: patient Goal: Patient-Specific Goal (Individualized) Outcome: Ongoing, Progressing Flowsheets (Taken 06/07/2025 0400) Patient/Family-Specific Goals (Include Timeframe): pt will remain free from injury during this shift Individualized Care Needs: safety Anxieties, Fears or Concerns: none expressed Goal: Absence of Hospital-Acquired Illness or Injury Outcome: Ongoing, Progressing Intervention: Identify and Manage Fall Risk Flowsheets (Taken 06/07/2025721) Safety Promotion/Fall Prevention: activity supervised assistive device/personal items within reach nonskid shoes/slippers when out of bed room organization consistent safety round/check completed Intervention: Prevent and Manage VTE (Venous Thromboembolism) Risk Flowsheets (Taken 06/07/2025721) VTE Prevention/Management: SCDs (sequential compression devices) off medication Goal: Optimal Comfort and Wellbeing Outcome: Ongoing, Progressing Problem: Skin Injury Risk Increased Goal: Skin Health and Integrity Outcome: Ongoing, Progressing Intervention: Optimize Skin Protection Flowsheets (Taken 06/07/2025721) Activity Management: activity adjusted per tolerance activity encouraged Pressure Reduction Techniques: frequent weight shift encouraged heels elevated off bed Pressure Reduction Devices: positioning supports utilized Skin Protection: silicone foam dressing in place Head of Bed (HOB) Positioning: HOB at 30 degrees Problem: Fall Injury Risk Goal: Absence of Fall and Fall-Related Injury Outcome: Ongoing, Progressing Intervention: Identify and Manage Contributors Flowsheets (Taken 06/07/2025721) Medication Review/Management: medications reviewed Self-Care Promotion: BADL personal objects within reach Intervention: Promote Injury-Free Environment Flowsheets (Taken 06/07/2025721) Safety Promotion/Fall Prevention: activity supervised assistive device/personal items within reach nonskid shoes/slippers when out of bed room organization consistent safety round/check completed Problem: Gas Exchange Impaired Goal: Optimal Gas Exchange Outcome: Ongoing, Progressing Intervention: Optimize Oxygenation and Ventilation Flowsheets (Taken 06/07/2025721) Airway/Ventilation Management: oxygen therapy provided Head of Bed (HOB) Positioning: HOB at 30 degrees Problem: Mobility Impairment Goal: Optimal Mobility Outcome: Ongoing, Progressing Intervention: Optimize Mobility Flowsheets (Taken 06/07/2025721) Activity Management: activity adjusted per tolerance activity encouraged Assistive Device Utilized: standard walker Positioning/Transfer Devices: pillows Problem: Hemodialysis Goal: Safe, Effective Therapy Delivery Outcome: Ongoing, Progressing Intervention: Optimize Device Care and Function Flowsheets (Taken 06/07/2025721) Medication Review/Management: medications reviewed Goal: Effective Tissue Perfusion Outcome: Ongoing, Progressing Intervention: Optimize Blood Flow Flowsheets (Taken 06/07/2025721) Stabilization Measures: legs elevated Goal: Absence of Infection Signs and Symptoms Outcome: Ongoing, Progressing * Progress Notes - Bobby Rose MD - 06/07/2025 6:38 AM EDT Images from the original note were not included. Hospital Medicine Progress Note Subjective Subjective Hypertensive overnight with SBP >180. Dialysis stopped yesterday for bleeding at access site. Seen after dialysis today and doing well. States last BM was 2 days ago, getting Dulcolax later. Stillwants subacute rehab placement at [facility]. Objective Objective Last Recorded Vitals Blood pressure (!) 176/46, pulse 62, temperature 36.3 ??C (97.4 ??F), resp. rate 16, height 1.702 m(5' 7 ), weight 60.3 kg (132 lb 15 oz), SpO2 92%. Physical Exam Constitutional: General: She is not in acute distress. Appearance: She is ill-appearing. Interventions: Nasal cannula in place. Eyes: General: No scleral icterus. Pupils: Pupils are unequal. Comments: Left pupil dilated, chronic change. Cardiovascular: Rate and Rhythm: Normal rate. Arteriovenous access: Left arteriovenous access is present. Pulmonary: Effort: Pulmonary effort is normal. No respiratory distress. Comments: 2 L nasal cannula, O2 sat 95% Skin: General: Skin is warm and dry. Neurological: Mental Status: She is alert and oriented to person, place, and time. Data Labs personally reviewed: Significant for normal WBC, stable anemia, low platelets, elevated creatinine, elevated BUN, normal AST/ALT/T bili, hyperphosphatemia, normal Mg Imaging No new imaging to review Assessment/Plan Assessment & Plan Principal Problem: Acute hypoxic respiratory failure Active Problems: ESRD (end stage renal disease) ([facility]) CHF (congestive heart failure) ([facility]) Pleural effusion Acute pulmonary edema ([facility]) GI bleed Mar Waldron is a 55 y.o. female admitted for acute hypoxic respiratory failure. This condition poses an acute threat to life/bodily function. #Acute hypoxic respiratory failure likely due to volume overload causing Pleural effusion likely due to missed dialysis and being anuric - Subjectively dyspneic; O2 saturation appropriate on 2L NC - Chart review shows history COPD though no PFTs available; CT abdomen and pelvis from 12/2024 shows emphysematous changes in bilateral lung bases; history of pleural effusion, 06/2024 thoracentesis transudative per Lights criteria - Respiratory panel negative; labs insignificant for infectious process; remains afebrile with noninfectious clinical presentation - Dialysis stopped early 06/06 for access site bleeding PLAN - HD today, resume MWF schedule - Pulmonology referral outpatient #ESRD on iHD with associated hyperphosphatemia, c/b hypervolemia due to missed dialysis - Dialysis chair at [facility] on a MWF schedule - Dry weight 59kg, has AVF - AGMA resolved after resuming dialysis PLAN - Renvela 800 mg TID with meals - Hold other scheduled dialysis medications at this time - Nephrology following: HD schedule as above #Chronic anemia and thrombocytopenia - Anemia and thrombocytopenia better explained by ESRD - Hemoglobin has remained stable during admission without any signs or symptoms of bleeding PLAN - Continue to monitor for signs and symptoms of bleeding - Further workup outpatient - Assessing need for UMESH #CAD w/ prior stenting - Hx of ME with COSME to mLAD, distant - Home medications: Plavix & ASA 325 (pt and family unsure why ASA dose chosen) PLAN - Continue ASA 81 in setting of prior stenting - Discontinue aspirin 325 mg daily and clopidogrel 75 mg daily at discharge #Renal Mass concerning for RCC - stable - Left renal mass concerning for renal cell carcinoma - Previous ultrasound and MRI - Initial oncology visits scheduled for later this month #Acute on chronic CHF (HFpEF) - improved - TTE evaluation limited given patient asking to stop - Volume overload better explained by ESRD w/o HD - ProBNP greater than 70K PLAN - Continue to monitor - Establish cardiology follow-up outpatient #Severe Protein-Calorie Malnutrition - High Risk for Refeeding - Art Installer following - Zack once daily, boost three times a day #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, Malnutrition, & Inability to Perform ADLs - PT/OT recommended subacute rehab: Referral sent to [facility] #Stage 3 Pressure Ulcer - Wound care consulted #Concern for Thrombosed LUE Fistula -Resolved - HD clinic had difficulty accessing fistula on 05/31/2025; positive thrill on physical exam - U/S demonstrates that the radiocephalic AV fistula is patent but flows are below normal limits with hemodynamically significant stenosis - Successful angiogram with declot on 06/04/2025; dialysis followed same day #Acute Encephalopathy - resolved - vs Subacute given history. Family describes progressive cognitive decline over course of years but with worsening over past few weeks since taking over care. - Alert to voice, speaks in short phrases, answers orientation questions, expresses opinions, drowsy - Metabolic- BG wnl; evelated TSH with T4 0.06 (consistent with previous lab 1mo ago) - Toxic- Lots of NyQuil in past, but no recent use per sons - Blood cultures NGTD PLAN - Levothyroxine to 88 mcg daily - Continue home Lexapro; continue evaluate for depression outpatient given major life changes over the past several weeks, consider titrating as necessary #Concern for GI Bleed - resolved - Black chalky stools reported by sons; no melena no hematochezia; chronic anemia; hemodynamically stable - Started on IV Protonix twice daily; hemoglobin remained stable and remained hemodynamically stable, brown soft stools while inpatient - Due for colonoscopy; PCP to follow up #Asymptomatic Sinus Bradycardia - resolved - History of hypothyroidism, takes carvedilol 25 mg daily twice daily; Hemodynamically stable - TSH elevated and T4 low - D/C home carvedilol; levothyroxine 88 mcg daily; previous dose 75 mcg daily - Normal sinus rhythm heart rate 60-70 Chronic Medical Conditions #HTN: Hydralazine 50 mg TID, Imdur 120 mg daily, amlodipine 5 mg daily. Hold home Coreg #HLD: Continue atorvastatin, Ezetimibe #Chronic Pain: Home reg is oxy 10/ APAP 300mg; oxycodone 5 mg q6h #Left Eye Blindness- ophthalmology follow-up at discharge, left eye mydriasis #Hx of Stroke Syndrome; patient denies CVA history, unclear history?, weakness in all 4 extremitieswithout focal deficit, PT/OT as above NUTRITION: Regular, renal diet (low K/phos) DVT PPX: SQH BOWEL REG: Senna BID. Last BM 06/05 Care today included: HIGHRISK: Discussion of management/test with another provider: Discussion with nephrology for ESRD on dialysis management Electronically Signed by: Bobby Rose MD - 06/07/2025 - 6:39 AM Cosigned by Mayra Rogers MD at 06/07/2025 6:04 PM EDT Associated attestation - Mayra Rogers MD - 06/07/2025 6:04 PM EDT I saw and evaluated the patient. I discussed the case with the resident/fellow and agree with the findings and plan as documented. MEDICAL DECISION MAKING: Data: - Additional history was obtained from nurse who noted she was wanting to go home - Reviewed labs which are significant for: stable anemia/thrombocytopenia, BUN remains elevated, elevated Phos, normal K, normal Mag - We ordered CBC and BMP in AM for monitoring WBC, Hgb, creatinine/K - We discussed the plan with nephrology who did dialysis today. Ok to discharge from their perspective once placement found Complexity of problems: - Current condition is not at goal, severity is severe as acute hypoxic respiratory failure is a severe threat to life and bodily function Mayra Rogers MD * Nursing Note - Chavez Lackey RN - 06/06/2025 5:04 PM EDT When hooking the pt up I watched the arm carefully for infiltration and it was ok at 100 BFR. WhileI was turned to the machine speeding it up the pt moved and the venous needle blew. Unknown which caused it but she was also hypertensive too and bleeding around the needle on the arterial site. I messaged Dr. Alex Jones who came to bedside and ordered we stop tx and will try again tomorrow. [facility] and explained the situation and care of infiltrated HD accesses. * Progress Notes - Sobia Jeffers RN - 06/06/2025 1:25 PM EDT Patient receiving HD today and tomorrow; Cm sent referral to [facility] reviewing/ awaiting response. CM will continue to follow. * Care Plan - Michelle West RN - 06/06/2025 11:42 AM EDT Problem: Adult Inpatient Plan of Care Goal: Plan of Care Review Outcome: Ongoing, Progressing Flowsheets Taken 06/06/2025 1139 by Michelle West RN Progress: no change Taken 06/06/2025 0354 by Florence Phelan Outcome Evaluation: Patient will remain free from falls/injury during this shift. Plan of Care Reviewed With: patient Goal: Patient-Specific Goal (Individualized) Outcome: Ongoing, Progressing Flowsheets (Taken 06/06/2025 113) Patient/Family-Specific Goals (Include Timeframe): patient will remain free from falls during the shift Goal: Absence of Hospital-Acquired Illness or Injury Outcome: Ongoing, Progressing Intervention: Identify and Manage Fall Risk Flowsheets (Taken 06/06/2025 113) Safety Promotion/Fall Prevention: safety round/check completed Goal: Optimal Comfort and Wellbeing Outcome: Ongoing, Progressing Intervention: Monitor Pain and Promote Comfort Flowsheets (Taken 06/06/2025 113) Pain Management Interventions: pillow support provided Problem: Skin Injury Risk Increased Goal: Skin Health and Integrity Outcome: Ongoing, Progressing Intervention: Optimize Skin Protection Flowsheets (Taken 06/06/2025 113) Activity Management: activity encouraged Head of Bed (HOB) Positioning: HOB at 30 degrees Problem: Fall Injury Risk Goal: Absence of Fall and Fall-Related Injury Outcome: Ongoing, Progressing Intervention: Identify and Manage Contributors Flowsheets (Taken 06/06/2025 1139) Medication Review/Management: medications reviewed Problem: Gas Exchange Impaired Goal: Optimal Gas Exchange Outcome: Ongoing, Progressing Intervention: Optimize Oxygenation and Ventilation Flowsheets (Taken 06/06/2025 1139) Head of Bed (HOB) Positioning: HOB at 30 degrees Problem: Mobility Impairment Goal: Optimal Mobility Outcome: Ongoing, Progressing Intervention: Optimize Mobility Flowsheets (Taken 06/06/2025 1139) Activity Management: activity encouraged Positioning/Transfer Devices: pillows Problem: Hemodialysis Goal: Safe, Effective Therapy Delivery Outcome: Ongoing, Progressing Intervention: Optimize Device Care and Function Flowsheets (Taken 06/06/2025 1139) Medication Review/Management: medications reviewed Goal: Effective Tissue Perfusion Outcome: Ongoing, Progressing Intervention: Optimize Blood Flow Flowsheets (Taken 06/06/2025 113) Stabilization Measures: legs elevated Goal: Absence of Infection Signs and Symptoms Outcome: Ongoing, Progressing Intervention: Prevent or Manage Infection Flowsheets (Taken 06/06/2025 113) Fever Reduction/Comfort Measures: lightweight bedding Infection Prevention: rest/sleep promoted * Progress Notes - Jenae Jones MD - 06/06/2025 9:48 AM EDT Nephrology Progress Note Patient: Mar Waldron Admit Date: 06/01/2025 Reason for Consult: ESRD Subjective Reviewed the interval events, flowsheets, labs and the notes. No acute events overnight. Seen in iHD unit this AM, unfortunately had significant hypertension andblew vessel, blood able to be returned to patient but decision made to NOT re-access for HD and re-attempt tomorrow instead. Objective Visit Vitals BP (!) 154/54 (BP Location: Right arm, Patient Position: Lying) Pulse 72 Temp 36.5 ??C (97.7 ??F) (Oral) Resp 16 Ht 1.702 m (5' 7 ) Wt 60.3 kg (132 lb 15 oz) SpO2 93% BMI 20.82 kg/m?? OB Status Hysterectomy Smoking Status Every Day BSA 1.69 m?? Temp: [36.4 ??C (97.6 ??F)-36.8 ??C (98.2 ??F)] 36.5 ??C (97.7 ??F) Heart Rate: [56-72] 72 Resp: [11-25] 16 BP: (146-181)/(45-71) 154/54 Intake/Output Summary (Last 24 hours) at 06/06/2025 0948 Last data filed at 06/06/2025 0430 Gross per 24 hour Intake 30 ml Output -- Net 30 ml Problem List Problem List[1] Medications: Current Medications: Current Scheduled Medications[2] Current Continuous Medications[3] Physical Exam: Gen: Chronically ill-appearing, NAD HEENT: MMM, OP clear without lesions or exudate Neck: Supple CV: Warm and well perfused Pulm: Normal respiratory effort, on room air Abd: Soft, non-tender, non-distended. Ext: Trace edema Skin: No jaundice. No rashes noted on observed skin Neuro: Alert, follows simple commands. Moving all extremities Access: LUE AVF, bleeding at cannulation site Laboratory: Renal Panel: Lab Results Component Value Date NA 137 06/06/2025 K 4.0 06/06/2025 CL 97 06/06/2025 CO2 24 06/06/2025 BUN 58 (H) 06/06/2025 PHOS 4.7 (H) 06/06/2025 MBD: Lab Results Component Value Date CALCIUM 8.3 (L) 06/06/2025 CAION 4.5 (L) 06/01/2025 PHOS 4.7 (H) 06/06/2025 CBC: Lab Results Component Value Date WBC 6.74 06/06/2025 RBC 2.72 (L) 06/06/2025 HGB 7.4 (L) 06/06/2025 HCT 26.2 (L) 06/06/2025 PLT 45 (L) 06/06/2025 MCV 96 06/06/2025 MCH 27.2 06/06/2025 MCHC 28.2 (L) 06/06/2025 RDW 15.8 (H) 06/06/2025 NRBC 0.0 06/06/2025 Iron studies: Lab Results Component Value Date TIBC 234 (L) 06/28/2024 Impression & Plan: Ms. Mar Waldron is a 55 y.o. woman with a hx of ESRD on HD, HTN, COPD, CAD s/p CABG/PCI/COSME, HLD, and HFpEF who was admitted to [facility] on 06/02 for concerns of thrombosed fistula. Outpatient HD: - Schedule: [facility] - Dialysis Unit: [facility] - Outpatient Machine Tracer: Dr. Summers - Residual renal functions: Minimal - EDW: 59 kg - Access: LUE AVF Assessment and Plan: #AVF malfunction s/p angio 06/04 #Hypervolemia #Hypertension #Anemia in CKD #CKD-MBD #ESRD on HD #Left Inferior Pole Renal Mass - Noted on MRI from February 2025 - has Urology appt scheduled in June - Plan for next iHD session tomorrow to resume MWF schedule. - Rx: 3hrs, BFR 300-400 mL/min, DFR 600-800 mL/min, 3K, 2.25Ca, 32HCO3, 138Na, UF 2L, T35.5 C - Continue home anti-hypertensives Will assess need for UMESH; Hgb currently 7.4 - Recommend increasing hydralazine dose for better BP control or resume home isosorbide - Please continue home Phos binders (Renvela) when tolerating PO - Recommend low K, low P diet while inpatient - Please renally dose medications for iHD Nephrology will continue to follow for the duration of this admission. Please call or page with anyquestions. Jenae Jones MD Nephrology Fellow PGY-5 Page: [phone] [1] Patient Active Problem List Diagnosis Volume overload ESRD (end stage renal disease) (CMS/HCC) CHF (congestive heart failure) ([facility]) Pleural effusion Acute hypoxic respiratory failure Acute pulmonary edema (CMS/HCC) GI bleed [2] aspirin, 81 mg, Oral, Daily atorvastatin, 80 mg, Oral, Nightly doxazosin, 2 mg, Oral, Nightly escitalopram, 10 mg, Oral, Daily eucerin, 1 Application, Topical, BID ezetimibe, 10 mg, Oral, Daily heparin (porcine), 5,000 Units, Subcutaneous, q8h CALEB hydrALAZINE, 50 mg, Oral, TID levothyroxine, 88 mcg, Oral, Daily before breakfast pantoprazole, 40 mg, Oral, Daily senna, 2 tablet, Oral, BID sevelamer carbonate, 800 mg, Oral, TID with meals [3] sodium chloride, 10 mL/hr Cosigned by Tiny Summers MD at 06/07/2025 10:31 AM EDT Associated attestation - Tiny Summers MD - 06/07/2025 10:31 AM EDT I saw and evaluated the patient. I discussed the case with the resident/fellow and agree with the findings and plan as documented. * Progress Notes - Bobby Rose MD - 06/06/2025 6:39 AM EDT Images from the original note were not included. Hospital Medicine Progress Note Subjective Subjective Hypertensive overnight with SBP >180. Increased hydralazine to 50 mg TID. Asleep in bed this morning, wearing 2 L NC. Requested team to update her family but had no other concerns or questions. Objective Objective Last Recorded Vitals Blood pressure (!) 175/66, pulse 63, temperature 36.7 ??C (98 ??F), temperature source Oral, resp. rate 16, height 1.702 m (5' 7 ), weight 60.3 kg (132 lb 15 oz), SpO2 92%. Physical Exam Vitals reviewed. Constitutional: General: She is awake. She is not in acute distress. Appearance: She is ill-appearing. Cardiovascular: Rate and Rhythm: Normal rate. Arteriovenous access: Left arteriovenous access is present. Pulmonary: Effort: Pulmonary effort is normal. No respiratory distress. Musculoskeletal: Cervical back: Normal range of motion. Neurological: Mental Status: She is alert. Motor: Weakness present. Psychiatric: Mood and Affect: Mood normal. Behavior: Behavior normal. Data Labs personally reviewed: Significant for normal WBC, stable anemia, decreased platelets, normal K,elevated creatinine, hypocalcemia, hypoalbuminemia, hyperphosphatemia, normal Mg, normal AST/ALT/T bili Imaging No new imaging to review Assessment/Plan Assessment & Plan Principal Problem: Acute hypoxic respiratory failure Active Problems: ESRD (end stage renal disease) ([facility]) CHF (congestive heart failure) ([facility]) Pleural effusion Acute pulmonary edema ([facility]) GI bleed Mar Waldron is a 55 y.o. female admitted for acute hypoxic respiratory failure. This condition poses an acute threat to life/bodily function. #Acute hypoxic respiratory failure likely due to volume overload causing Pleural effusion likely due to missed dialysis and being anuric - Subjectively dyspneic; O2 saturation appropriate on 2L NC - Chart review shows history COPD though no PFTs available; CT abdomen and pelvis from 12/2024 shows emphysematous changes in bilateral lung bases; history of pleural effusion, 06/2024 thoracentesis transudative per Lights criteria - Respiratory panel negative; labs insignificant for infectious process; remains afebrile with noninfectious clinical presentation PLAN - HD today and tomorrow, resume MWF schedule after - Pulmonology referral outpatient #ESRD on iHD with associated hyperphosphatemia, AGMA, and hypervolemia due to missed dialysis - Dialysis chair at [facility] on a MWF schedule - Dry weight 59kg, has AVF PLAN - Renvela 800 mg TID with meals - Hold other scheduled dialysis medications at this time - Nephrology following: HD schedule as above #Chronic anemia and thrombocytopenia - Anemia and thrombocytopenia better explained by ESRD - Hemoglobin has remained stable during admission without any signs or symptoms of bleeding PLAN - Continue to monitor for signs and symptoms of bleeding - Further workup outpatient - Assessing need for UMESH #CAD - Hx of ME with COSME to mLAD, distant - Home medications include Plavix & ASA 325 PLAN - Continue ASA 81 in setting of prior stenting - discontinue aspirin 325 mg daily and clopidogrel 75 mg daily at discharge #Renal Mass concerning for RCC - stable - Left renal mass concerning for renal cell carcinoma - Previous ultrasound and MRI - Initial oncology visits scheduled for later this month #Acute on chronic CHF (HFpEF) - improving - TTE evaluation limited given patient asking to stop - Volume overload better explained by ESRD w/o HD - ProBNP greater than 70K PLAN - Continue to monitor - Establish cardiology follow-up outpatient #Severe Protein-Calorie Malnutrition - High Risk for Refeeding - Art Installer consulted #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, Malnutrition, & Inability to Perform ADLs - PT/OT recommended subacute rehab: referrals sent #Stage 3 Pressure Ulcer - Wound care consult #Concern for Thrombosed LUE Fistula -Resolved - HD clinic had difficulty accessing fistula on 05/31/2025; positive thrill on physical exam - U/S demonstrates that the radiocephalic AV fistula is patent but flows are below normal limits with hemodynamically significant stenosis - Successful angiogram with declot on 06/04/2025; dialysis followed same day #Acute Encephalopathy - improved/resolved - vs Subacute given history. Family describes progressive cognitive decline over course of years but with worsening over past few weeks since taking over care. - Alert to voice, speaks in short phrases, answers orientation questions, expresses opinions, drowsy - Metabolic- BG wnl; evelated TSH with T4 0.06 (consistent with previous lab 1mo ago) - Toxic- Lots of NyQuil in past, but no recent use per sons PLAN - Blood cultures NGTD - Levothyroxine to 88 mcg daily - Continue home Lexapro; continue evaluate for depression outpatient given major life changes over the past several weeks, consider titrating as necessary #Concern for GI Bleed - Resolved - Black chalky stools reported by sons; no melena no hematochezia; chronic anemia; hemodynamically stable - Started on IV Protonix twice daily; hemoglobin remained stable and remained hemodynamically stable, brown soft stools while inpatient - Due for colonoscopy; PCP to follow up #Asymptomatic Sinus Bradycardia - resolved - History of hypothyroidism, takes carvedilol 25 mg daily twice daily; Hemodynamically stable - TSH elevated and T4 low - D/C home carvedilol; levothyroxine 88 mcg daily; previous dose 75 mcg daily - Normal sinus rhythm heart rate 60-70 Chronic Medical Conditions #HTN: Hold home Coreg 25 BID, Hydral 50 q6h not ordered; increased hydralazine to 50 mg 3 times daily today #HLD: Continue atorvastatin, Ezetimibe #Chronic Pain: Home reg is oxy 10/ APAP 300mg; oxycodone 5 mg by mouth every 6 hours as needed for severe pain #Left Eye Blindness- ophthalmology follow-up at discharge #Hx of Stroke Syndrome; patient denies CVA history, unclear history?, weakness in all 4 extremitieswithout focal deficit, PT/OT as above NUTRITION: Regular, renal diet (low K/phos) DVT PPX: SQH BOWEL REG: Senna. Last BM 06/05 Care today included: HIGHRISK: Discussion of management/test with another provider: Nephrology for dialysis Electronically Signed by: Bobby Rose MD - 06/06/2025 - 6:40 AM Cosigned by Mayra Rogers MD at 06/06/2025 5:31 PM EDT Associated attestation - Mayra Rogers MD - 06/06/2025 5:31 PM EDT I saw and evaluated the patient with the resident/fellow. I discussed the case with the resident/fellow and agree with the findings and plan as documented. MEDICAL DECISION MAKING: Data: - Additional history was obtained from nurse who noted she was was resting comfortably - Reviewed labs which are significant for: stable anemia/thrombocytopenia, improving BUN elevated as no HD yesterday, normal AST/ALT/T bili, elevated phos, normal Mag/K - We ordered CBC and BMP in AM for monitoring WBC, Hgb, creatinine/K - We discussed the plan with nephrology who planned for dialysis but had bleeding related to BP. Unfortunately, AM BP med was held prior to dialysis and BP was consequently elevated. Plan for HD tomorrow Complexity of problems: - Current condition is not at goal, severity is severe as acute hypoxic respiratory failure is a severe threat to life and bodily function Mayra Rogers MD * Care Plan - Florence Phelan - 06/06/2025 3:58 AM EDT Problem: Adult Inpatient Plan of Care Goal: Plan of Care Review Outcome: Ongoing, Progressing Flowsheets (Taken 06/06/2025353) Progress: no change Outcome Evaluation: Patient will remain free from falls/injury during this shift. Plan of Care Reviewed With: patient Goal: Patient-Specific Goal (Individualized) Outcome: Ongoing, Progressing Flowsheets (Taken 06/05/2025 1930) Patient/Family-Specific Goals (Include Timeframe): Patient will remain free from falls/injury during this shift. Individualized Care Needs: safety Anxieties, Fears or Concerns: none stated Goal: Absence of Hospital-Acquired Illness or Injury Outcome: Ongoing, Progressing Intervention: Identify and Manage Fall Risk Flowsheets (Taken 06/06/2025353) Safety Promotion/Fall Prevention: activity supervised assistive device/personal items within reach clutter-free environment maintained fall prevention program maintained lighting adjusted room organization consistent safety round/check completed Intervention: Prevent Skin Injury Flowsheets (Taken 06/06/2025353) Body Position: left side-lying Skin Protection: incontinence pads utilized Intervention: Prevent and Manage VTE (Venous Thromboembolism) Risk Flowsheets (Taken 06/06/2025353) VTE Prevention/Management: SCDs (sequential compression devices) off medication Intervention: Prevent Infection Flowsheets (Taken 06/06/2025353) Infection Prevention: rest/sleep promoted single patient room provided hand hygiene promoted Goal: Optimal Comfort and Wellbeing Outcome: Ongoing, Progressing Intervention: Monitor Pain and Promote Comfort Flowsheets (Taken 06/06/2025353) Pain Management Interventions: quiet environment facilitated relaxation techniques promoted pillow support provided position adjusted Intervention: Provide Person-Centered Care Flowsheets (Taken 06/06/2025353) Trust Relationship/Rapport: care explained choices provided emotional support provided empathic listening provided Problem: Skin Injury Risk Increased Goal: Skin Health and Integrity Outcome: Ongoing, Progressing Intervention: Optimize Skin Protection Flowsheets (Taken 06/06/2025353) Activity Management: activity adjusted per tolerance Pressure Reduction Techniques: frequent weight shift encouraged weight shift assistance provided positioned off wounds Pressure Reduction Devices: positioning supports utilized Skin Protection: incontinence pads utilized Head of Bed (HOB) Positioning: HOB elevated Intervention: Promote and Optimize Oral Intake Flowsheets (Taken 06/06/2025353) Oral Nutrition Promotion: rest periods promoted social interaction promoted Nutrition Interventions: meals from home/family encouraged meal set-up provided Problem: Fall Injury Risk Goal: Absence of Fall and Fall-Related Injury Outcome: Ongoing, Progressing Intervention: Identify and Manage Contributors Flowsheets (Taken 06/06/2025353) Medication Review/Management: medications reviewed Self-Care Promotion: independence encouraged BADL personal objects within reach Intervention: Promote Injury-Free Environment Flowsheets (Taken 06/06/2025353) Safety Promotion/Fall Prevention: activity supervised assistive device/personal items within reach clutter-free environment maintained fall prevention program maintained lighting adjusted room organization consistent safety round/check completed Problem: Gas Exchange Impaired Goal: Optimal Gas Exchange Outcome: Ongoing, Progressing Intervention: Optimize Oxygenation and Ventilation Flowsheets (Taken 06/06/2025353) Airway/Ventilation Management: oxygen therapy provided Head of Bed (HOB) Positioning: HOB elevated Problem: Mobility Impairment Goal: Optimal Mobility Outcome: Ongoing, Progressing Intervention: Optimize Mobility Flowsheets (Taken 06/06/2025353) Activity Management: activity adjusted per tolerance Assistive Device Utilized: standard walker Positioning/Transfer Devices: pillows repositioning sheet Problem: Hemodialysis Goal: Safe, Effective Therapy Delivery Outcome: Ongoing, Progressing Intervention: Optimize Device Care and Function Flowsheets (Taken 06/06/2025 0354) Medication Review/Management: medications reviewed Goal: Effective Tissue Perfusion Outcome: Ongoing, Progressing Intervention: Optimize Blood Flow Flowsheets (Taken 06/06/2025 0354) Stabilization Measures: legs elevated Goal: Absence of Infection Signs and Symptoms Outcome: Ongoing, Progressing Intervention: Prevent or Manage Infection Flowsheets (Taken 06/06/2025 0354) Infection Management: aseptic technique maintained Fever Reduction/Comfort Measures: lightweight bedding lightweight clothing Infection Prevention: rest/sleep promoted single patient room provided hand hygiene promoted * Care Plan - Cate Escobedo RN - 06/05/2025 6:25 PM EDT Problem: Adult Inpatient Plan of Care Goal: Plan of Care Review Outcome: Ongoing, Not Progressing Flowsheets (Taken 06/05/20251821) Outcome Evaluation: Patient will remain free from falls throughout shift Goal: Patient-Specific Goal (Individualized) Outcome: Ongoing, Not Progressing Flowsheets (Taken 06/05/2025 0830) Patient/Family-Specific Goals (Include Timeframe): Pt will remain free from falls throughout shift Individualized Care Needs: safety Goal: Absence of Hospital-Acquired Illness or Injury Outcome: Ongoing, Not Progressing Intervention: Identify and Manage Fall Risk Flowsheets (Taken 06/05/2025 0830) Safety Promotion/Fall Prevention: activity supervised assistive device/personal items within reach fall prevention program maintained clutter-free environment maintained mobility aid in reach lighting adjusted room organization consistent nonskid shoes/slippers when out of bed safety round/check completed Intervention: Prevent Skin Injury Flowsheets Taken 06/05/20251821 Skin Protection: incontinence pads utilized Taken 06/05/2025 1800 Body Position: right turned Intervention: Prevent and Manage VTE (Venous Thromboembolism) Risk Flowsheets (Taken 06/05/20251821) VTE Prevention/Management: SCDs (sequential compression devices) off previous patient education reinforced patient refused intervention Intervention: Prevent Infection Flowsheets (Taken 06/05/20251821) Infection Prevention: rest/sleep promoted equipment surfaces disinfected single patient room provided Goal: Optimal Comfort and Wellbeing Outcome: Ongoing, Not Progressing Intervention: Monitor Pain and Promote Comfort Flowsheets (Taken 06/05/20251821) Pain Management Interventions: pain management plan reviewed with patient/caregiver Intervention: Provide Person-Centered Care Flowsheets (Taken 06/05/20251821) Trust Relationship/Rapport: care explained choices provided emotional support provided empathic listening provided Problem: Skin Injury Risk Increased Goal: Skin Health and Integrity Outcome: Ongoing, Not Progressing Intervention: Optimize Skin Protection Flowsheets Taken 06/05/20251821 Activity Management: activity adjusted per tolerance Pressure Reduction Techniques: frequent weight shift encouraged positioned off wounds Pressure Reduction Devices: positioning supports utilized Skin Protection: incontinence pads utilized Taken 06/05/2025829 Head of Bed (HOB) Positioning: HOB elevated Intervention: Promote and Optimize Oral Intake Flowsheets (Taken 06/05/20251821) Oral Nutrition Promotion: rest periods promoted Nutrition Interventions: meals from home/family encouraged meal set-up provided Problem: Fall Injury Risk Goal: Absence of Fall and Fall-Related Injury Outcome: Ongoing, Not Progressing Intervention: Identify and Manage Contributors Flowsheets (Taken 06/05/20251821) Medication Review/Management: medications reviewed Self-Care Promotion: independence encouraged BADL personal objects within [facility] Intervention: Promote Injury-Free Environment Flowsheets (Taken 06/05/2025829) Safety Promotion/Fall Prevention: activity supervised assistive device/personal items within reach fall prevention program maintained clutter-free environment maintained mobility aid in [facility] lighting adjusted room organization consistent nonskid shoes/slippers when out of bed safety round/check completed Problem: Gas Exchange Impaired Goal: Optimal Gas Exchange Outcome: Ongoing, Not Progressing Intervention: Optimize Oxygenation and Ventilation Flowsheets Taken 06/05/20251821 Airway/Ventilation Management: oxygen therapy provided Taken 06/05/2025829 Head of Bed (HOB) Positioning: HOB elevated Problem: Mobility Impairment Goal: Optimal Mobility Outcome: Ongoing, Not Progressing Intervention: Optimize Mobility Flowsheets (Taken 06/05/20251821) Activity Management: activity adjusted per tolerance Assistive Device Utilized: standard walker Positioning/Transfer Devices: pillows * Consults - Rola Jones RD - 06/05/2025 2:05 PM EDTAssociated Order(s): IP CONSULT TO NUTRITION SERVICES Nutrition Education Consult Met with pt to provide renal nutrition teaching, per consult. Pt very groggy at time of visit, GCS = 14, with noted confusion. Attempted to discuss nutrition, but pt was not appropriate for education. Left [facility]'s Renal Nutrition handouts at bedside for family. Feel free to re-consult if needed, when pt is more alert. Rola Jones RD * Progress Notes - Flako Rai MD - 06/05/2025 2:05 PM EDT Images from the original note were not included. Hospital Medicine Progress Note Subjective Subjective No acute events overnight. Discussed plans for dialysis tomorrow, again Tuesday with plans to discharge Tuesday afternoon. No chest pain, difficulty breathing, belly pain. Remains on 2 L nasal cannula Additional History was obtained from nurse. No 2 stools overnight soft formed and brown. Objective Objective Last Recorded Vitals Blood pressure (!) 141/63, pulse 63, temperature 36.5 ??C (97.7 ??F), temperature source Oral, resp. rate 13, height 1.702 m (5' 7 ), weight 60.3 kg (132 lb 15 oz), SpO2 93%. Physical Exam Vitals and nursing note reviewed. Constitutional: General: She is awake. HENT: Head: Atraumatic. Eyes: General: No scleral icterus. Cardiovascular: Rate and Rhythm: Regular rhythm. Heart sounds: Normal heart sounds. Pulmonary: Effort: Pulmonary effort is normal. Breath sounds: Wheezing present. Abdominal: Palpations: Abdomen is soft. Tenderness: There is no abdominal tenderness. There is no guarding. Musculoskeletal: General: No tenderness. Right lower leg: No edema. Left lower leg: No edema. Skin: General: Skin is warm and dry. Neurological: General: No focal deficit present. Mental Status: She is alert and oriented to person, place, and time. Psychiatric: Mood and Affect: Mood normal. Data Reviewed the following Notes: Nephrology: Plan for HD session 06/06/2025 and then again 06/07/2025 Labs personally reviewed: CBC: Anemia stable; thrombocytopenia stable CMP: Potassium stable, creatinine improved, BUN improved, anion gap stable, alk phos stable, phosphorus improved, magnesium stable Blood cultures: No growth to date Imaging Independently reviewed and interpreted CT abdomen and pelvis from December 2024 that shows emphysematous changes in bilateral lung bases. Assessment/Plan Assessment & Plan Principal Problem: Acute hypoxic respiratory failure Active Problems: ESRD (end stage renal disease) ([facility]) CHF (congestive heart failure) ([facility]) Pleural effusion Acute pulmonary edema ([facility]) GI bleed Mar Waldron is a 55 y.o. female admitted for acute hypoxic respiratory failure This condition poses an acute threat to life/bodily function. 06/05/25: Patient remains comfortable and stable on 2 L nasal cannula in setting of acute hypoxic respiratory failure. Successful angiogram with declot of left upper extremity fistula; dialyze yesterday. Subacute rehab referral sent to [facility] in [facility]. Plan for dialysis 06/06 and 06/07; anticipate discharge 06/07/2025 pending respiratory status. Discussed plan with sons via phone call. #Acute hypoxic respiratory failure likely due to volume overload causing Pleural effusion likely due to missed dialysis and being anuric - Subjectively dyspneic; O2 saturation appropriate on 2L NC - Chart review shows history COPD though no PFTs available; CT abdomen and pelvis from 12/2024 shows emphysematous changes in bilateral lung bases; history of pleural effusion, 06/2024 thoracentesis with lights criteria being transudative - Respiratory panel negative; labs insignificant for infectious process; remains afebrile with noninfectious clinical presentation PLAN - Plan for HD per nephrology - We will re-evaluate following HD, will consider further workup if O2 requirement remains following dialysis - Pulmonology referral outpatient #ESRD on iHD with associated hyperphosphatemia, AGMA, and hypervolemia due to missed dialysis - Dialysis chair at [facility] on a MWF schedule - Dry weight 59kg, has AVF PLAN - Renvela 800 mg 3 times a day with meals - Hold other scheduled dialysis medications at this time - Nephrology consulted - plan for HD 06/06 and 06/07 #Chronic anemia and thrombocytopenia - Anemia and thrombocytopenia better explained by ESRD - Hemoglobin has remained stable during admission without any signs or symptoms of bleeding PLAN - Continue to monitor for signs and symptoms of bleeding - Further workup outpatient #CAD - Hx of ME with COSME to mLAD, distant - Home medications include Plavis & ASA 325 PLAN - Continue ASA 81 in setting of prior stenting - discontinue aspirin 325 mg daily and clopidogrel 75 mg daily at discharge #Renal Mass concerning for RCC - stable - Left renal mass concerning for renal cell carcinoma - Previous ultrasound and MRI - Have initial oncology visits scheduled for later this month #Acute on chronic CHF (HFpEF) - improving - TTE evaluation limited given patient asking to stop - Volume overload better explained by ESRD w/o HD - ProBNP greater than 70K PLAN - Continue to monitor - Establish cardiology follow-up outpatient #Severe Protein-Calorie Malnutrition - High Risk for Refeeding - Art Installer consult #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, Malnutrition, & Inability to Perform ADLs - PT/OT Consult - #Stage 3 Pressure Ulcer - Wound consult #Concern for Thrombosed LUE Fistula -Resolved - HD clinic had difficulty accessing fistula on 05/31/2025; positive thrill on physical exam - U/S demonstrates that the radiocephalic AV fistula is patent but flows are below normal limits with hemodynamically significant stenosis - Successful angiogram with declot on 06/04/2025; dialysis followed same day #Acute Encephalopathy - improved/resolved - vs Subacute given history. Family describes progressive cognitive decline over course of years but with worsening over past few weeks since taking over care. - Alert to voice, speaks in short phrases, answers orientation questions, expresses opinions, drowsy - Metabolic- BG wnl; evelated TSH with T4 0.06 (consistent with previous lab 1mo ago) - Toxic- Lots of NyQuil in past, but no recent use per sons PLAN - Follow-up blood cultures - increase levothyroxine to 88 mcg daily - Continue home Lexapro; continue evaluate for depression outpatient given major life changes over the past several weeks, consider titrating as necessary #Concern for GI Bleed - Resolved - Black chalky stools reported by sons; no melena no hematochezia; chronic anemia; hemodynamically stable - Started on IV Protonix twice daily; hemoglobin remained stable and remained hemodynamically stable, brown soft stools while inpatient - Due for colonoscopy; PCP to follow up #Asymptomatic Sinus Bradycardia - resolved - History of hypothyroidism, takes carvedilol 25 mg daily twice daily; Hemodynamically stable - TSH elevated and T4 low - D/C home carvedilol; levothyroxine 88 mcg daily; previous dose 75 mcg daily - Normal sinus rhythm heart rate 60-70 Chronic Medical Conditions #HTN: Hold home Coreg 25 BID, Hydral 50 q6h not ordered; hydralazine 25 mg 3 times daily started #HLD: Continue atorvastatin, Ezetimibe #Chronic Pain: Home reg is oxy 10/ APAP 300mg; oxycodone 5 mg by mouth every 6 hours as needed for severe pain #Left Eye Blindness- ophthalmology follow-up at discharge #Hx of Stroke Syndrome; patient denies CVA history, unclear history?, weakness in all 4 extremitieswithout focal deficit, PT/OT Care today included: HIGHRISK: Discussion of management/test with another provider: Discussed care plan with Nephrology,plan to dialyze the next 2 days. Electronically Signed by: Flako Rai MD - 06/05/2025 - 2:04 PM Cosigned by Mayra Rogers MD at 06/05/2025 2:11 PM EDT Associated attestation - Mayra Rogers MD - 06/05/2025 2:11 PM EDT I saw and evaluated the patient. I discussed the case with the resident/fellow and agree with the findings and plan as documented. MEDICAL DECISION MAKING: Data: - Additional history was obtained from nurse who noted she was doing well this morning - Reviewed labs which are significant for: stable anemia/thrombocytopenia, improving BUN after dialysis, glucose normal for a patient without diabetes and not on any insulin. AST/ALT/T bili normal - We ordered CBC and BMP in AM for monitoring WBC, Hgb, creatinine/K - My independent interpretation of telemetry demonstrates NSR with PVCs - We discussed the plan with nephrology who plans for dialysis and Tuesday for volume management Complexity of problems: - Current condition is not at goal, severity is severe as acute hypoxic respiratory failure is a severe threat to life and bodily function Mayra Rogers MD * Progress Notes - Sobia Jeffers RN - 06/05/2025 1:27 PM EDT Per family request, Subacute rehab referral sent to [facility] for review. x 104 . CM will continue to follow. * Progress Notes - Priscila Naranjo N - 06/05/2025 11:33 AM EDT Occupational Therapy Treatment Patient Name: Mar Waldron Today's Date: 06/05/2025 OT Discharge Recommendations: Subacute rehab Equipment Recommended: Defer to facility Subjective Pt receptive to therapy presence. Reports feeling sleepy. Participants in Care Family/Caregiver Present: No Decorating Inspector: Not Applicable Presentation Oxygen Therapy: Supplemental oxygen O2 Delivery Method: Nasal cannula O2 Flow Rate (L/min): 4 L/min Lines and Tubes: Intravenous access, Telemetry Pre-Session: Supine, Head of bed elevated, Lines intact, Bed alarm Pre-Session Comments: RN agreeable to session Post-Session: Sitting in chair, Chair alarm, Lines intact, RN notified, Call light in reach Post-Session Comments: Pt positioned for comfort/pressure relief with pillow supports. All needs met. Precautions Medical Precautions: Fall precautions Objective Pain Pt does not endorse pain during assessment. Delirium Screening RASS: Alert and calm Confusion Assessment Method-ICU (CAM-ICU/PCAM-ICU) Feature 3: Altered Level of Consciousness: Negative Cognition Cognition Overall Cognitive Status: Impaired Arousal/Alertness: Appropriate responses to stimuli Mood/Behavior: Lethargic Orientation Level: Oriented to place, Oriented to situation, Oriented to person Single Step Commands: With increased time, With repetition Multi-Step Commands: Unable to follow commands Method of Communication: Verbal Bed Mobility Bed Mobility Exam: Scooting/Bridging Level of [place]: Dependent (scoot to EOB in sitting) Physical/Nonphysical Assist: Verbal Cues, Minimal cues, Additional assist utilized for safety Bed Mobility Exam: Supine to Sit Level of [place]: Maximum assist (25% patient's effort) Physical/Nonphysical Assist: Set-up required, Verbal Cues, Moderate cues, HOB elevated, Additional assist utilized for safety Transfers Transfer Interventions: Patient currently unable to perform transfers, endorsed not being able to stand at baseline and needing assistance to transfer to wheelchair. Transfer Exam: Sit to stand Level of [place]: Maximum assist (25% patient's effort) Physical/Nonphysical Assist: Verbal Cues, Nonverbal cues (demo/gestures), Additional assist utilized for safety Assistive Device: Hand held assist Transfer Exam: Stand to Sit Level of [place]: Maximum assist (25% patient's effort) Physical/Nonphysical Assist: Verbal Cues, Nonverbal cues (demo/gestures), Set-up required Assistive Device: Hand held assist Transfer Exam: Bed to Chair/Chair to Bed Level of [place]: Dependent Physical/Nonphysical Assist: Verbal Cues, Nonverbal cues (demo/gestures), Additional assist utilized for safety, Set-up required Type of Transfer: Stand-pivot Assistive Device: Hand held assist Balance Postural Appearance Posture: Stooped posture, Forward head, Rounded shoulders Static Sitting Balance Static Sitting-Balance Support: Feet supported Static Sitting-Level of Assistance: Moderate assistance Dynamic Sitting Balance Dynamic Sitting-Balance Support: Left upper extremity support, Right upper extremity support Dynamic Sitting-Balance: Anterior/Posterior weight shifts Level of Assistance: Maximum assistance Static Standing Balance Static Standing-Balance Support: No upper extremity supported Static Standing-Level of Assistance: Dependent Therapeutic Activity (15 minutes) Pt participated in sequential task training focused on transitional skills to increase strength, balance, and tolerance to upright mobility. Pt participated in bed mobility, seated EOB balance, sit to stand, and functional transfer to bedside chair. Pt required assistance at trunk and at LE to assumed seated EOB position. Pt required assistance at hips to scoot hips to EOB for LE support on floor. Pt demonstrated right lateral lean requiring assistance to maintain midline. Pt required dependentassist x 2 for stand-pivot transfer to bedside chair. Once seated in chair, pt demonstrated abilityto scoot hips back in chair without assist. Pt appears very limited due to cognition and alertness at this time. Self-Care Interventions Self Care/Home Management (ADLs) Time Entry: 10 Grooming Grooming Level of Assistance: Maximum assistance, Setup Grooming Where Assessed: Chair level Grooming Interventions: OT faciliated engagement in grooming tasks in supported siting at chair level. Pt required encourgement to participate in brushing hair ultimately requiring assistance. Pt provided with wash cloth to wash face requiring cues for throughness. Lower Extremity Dressing Sock Level of Assistance: Dependent LE Dressing Where Assessed: Edge of bed LE Dressing Interventions: Pt required dependent assist to don socks sitting at EOB. Assessment Pt progressed from previous assessment able to transfer out of bed this date. Pt continues to be limited due to decreased alertness and cognition as well as global weakness/debility. Pt currently requiring assistance for all aspects of care. Considering deficits and level of assist required, pt is not safe to return home. Pt to continue to benefit from skilled therapy services to address deficitsto increase safety and independence in ADLs/functional mobility. OT Recommendations Discharge Destination: Subacute rehab Discharge Equipment: Defer to facility Plan Continue per POC. Goals OT GOAL DETAILS Goal Established Date Time Frame Goal Status OT Goal 1: Pt will demonstrate improved activity tolerance to sit edge of bed times 5 minutes with sba while performing static/dynamic adl tasks before requiring a rest break. 06/02/25 2 weeks OT Goal 2: Pt will complete lower body dressing with mod assist using adaptive equipment as needed. 06/02/25 2 weeks OT Goal 3: Pt will complete toilet transfer with min A using adaptive equipment as needed. 06/02/25 2 weeks Written by Priscila Naranjo on 06/05/25 at 2:24 PM. * Progress Notes - Amanda Michaels - 06/05/2025 11:32 AM EDT PHYSICAL THERAPY TREATMENT PATIENT DATA Patient Name Mar Waldron Session Date 06/05/2025 Total Treatment Time 24 min PT Discharge Recommendations Subacute rehab Equipment Recommended Defer to facility PRECAUTIONS Weight Bearing Precautions (if applicable) Mobility Orders Mobility Protocol: General - Mobility Guidelines Extremity Precautions: No Extremity Precautions Other mobility precautions: No other precautions required ROM Restrictions (if applicable) Medical Precautions Yes Medical Precautions: Fall precautions HOME LIVING/SET-UP Lives With Adult, Son (DIL) Home Type House Home Equipment Wheelchair-manual, Rolling walker, Bedside commode Home Layout Multi-level, Able to live on one level with bedroom/bathroom (reports no stairs to negotiate.) Bathroom Layout Walk-in shower Additional Comments Patient is unreliable historian to provide accurate PLOF, family not present inroom at time of evaluation PRIOR LEVEL OF FUNCTION Receives help from Son (Dtr in law assist with self care.) Level of Mobility Wheelchair/Scooter (Does not go out except for doctor appointments) Mobility [place] Assist with wheelchair propulsion History of Falls Yes ADL Performance Needs assistance Needs assist Needs assist Needs assist Needs assist Needs assist Needs assist Needs assist PRESENTATION Oxygen Oxygen Therapy: Supplemental oxygen O2 Delivery Method: Nasal cannula O2 Flow Rate (L/min): 4 L/min Lines and Tubes Hemodialysis Arteriovenous Fistula Left Forearm (Active) Peripheral IV 06/01/25 Right Antecubital (Active) Pre-Session Supine, Head of bed elevated, Lines intact, Bed alarm RN agreeable to session Post-Session Sitting in chair, Chair alarm, Lines intact, RN notified, Call light in reach Pt positioned for comfort/pressure relief with pillow supports. All needs met. Bracing (if applicable) SUBJECTIVE I'm just tired. Pt and RN agreeable to PT session. PARTICIPANTS IN CARE Visitors Present No, Decorating Inspector (if applicable) OBJECTIVE PAIN Pt denies pain. Pt positioned for comfort/pressure relief with pillow supports at session conclusion. DELIRIUM SCREENING RASS: Alert and calm Confusion Assessment Method-ICU (CAM-ICU/PCAM-ICU) Feature 3: Altered Level of Consciousness: Negative INTERVENTIONS THERAPEUTIC ACTIVITY Treatment Minutes 24 Interventions Therapeutic activity focused on functional task training in order to promote functional strengthening, optimize out of bed mobility to reduce effects of prolonged bedrest (muscle wasting/atrophy, development of pressure sores, pneumonia, etc.), and maximize pt's tolerance to upright positioning in order to facilitate return to baseline level of function. See Bed Mobility and Transfers sections for intervention details. Of note, while supine in bed, pt with fluctuating O2 saturations (86-92%), which improved with pt in an upright position seated in bedside chair (94%). Increased time required to allow for pillow placement to maximize pt positioning and pressure relief to maintain skin integrity at session concusion. BED MOBILITY Level of [place] Physical/Non- physical Assist Adaptive Equipment Utilized Rolling/ Turning Scooting/ Bridging Dependent (scoot to EOB in sitting) Verbal Cues, Minimal cues, Additional assist utilized for safety Other (drawsheet) Supine to Sit Maximum assist (25% patient's effort) Set-up required, Verbal Cues, Moderate cues, HOB elevated, Additional assist utilized for safety drawsheet Sit to Supine Interventions To transition supine > sit, pt provided with simple verbal cues and visual cues to sit up. Pt able to assist with initiating advancement of bilateral lower extremities towards the edge of the bed, before stating help me, requiring assistance for completion and subsequent max A for trunk control into sitting. Of note, after sitting upright on the edge of the bed briefly, pt with abrupt attempt to return to supine, requiring redirection and assistance to return to sitting. TRANSFERS Level of [place] Physical/Non- physical Assist Adaptive Equipment Utilized Sit to Stand Maximum assist (25% patient's effort) Verbal Cues, Nonverbal cues (demo/gestures), Additional assist utilized for safety Hand held assist Stand to sit Maximum assist (25% patient's effort) Verbal Cues, Nonverbal cues (demo/gestures), Set-up required Hand held assist Bed to Chair Dependent Stand-pivot Verbal Cues, Nonverbal cues (demo/gestures), Additional assist utilized for safety, Set-up required Hand held assist Toilet Transfer Shower Transfer Interventions Pt completes x1 STS transfer from the EOB, requiring verbal cueing, visual cueing, and assistance for optimal UE placement, LE setup including wider RAMIREZ, initiation, and overall sequencing including anterior weight-shift and use of momentum to facilitate moving into standing. Once in s tanding, pt requires assistance for enhanced hip extension to facilitate 100% upright. Pt unable tosafely attempt sidesteps this date due to generalized weakness and intermittent knee buckling, requiring total Ax2 to safely complete a stand-pivot into the bedside chair.Once seated in chair and after a rest break, pt encouraged to complete a 2nd STS transfer, however, pt unable to clear bottom from chair despite being provided with maximum assistance. Standardized Assessments Standardized Assessments Standardized Assessments: AMPAC 6-Clicks Mobility Assessment AMPAC 6-Clicks Mobility Assessment Difficulty patient has turning over in bed (including adjusting bedclothes, sheets, and blankets)?:A lot Difficulty patient has sitting down on and standing up from a chair with arms (wheelchair, bedside commode, etc.)?: A lot Difficulty patient has moving from lying on back to sitting on the side of the bed?: A lot How much help does the patient need moving to and from a bed to a chair (including a wheelchair)?: A lot How much help does the patient need to walk in hospital room?: Unable How much help does the patient need climbing 3-5 steps with a railing?: Unable [facility] 6-Clicks Mobility Assessment Total : 10 ASSESSMENT Patient is improving, as noted by progression to functional transfers during this PT treatment compared to last PT treatment. However, pt is significantly limited by impaired activity tolerance, lethargy, generalized weakness, and impaired cognition leading to reduced command follow, which all impact further progression of mobility this session. Pt continues to require skilled 2-person assistanceto mobilize and remains a high falls risk. As such, pt is not safe to return home and would continue to benefit from subacute rehab placement, once medically ready, to allow pt extended time to maximize strength, endurance, and participation in all functional tasks to facilitate return to baseline level of function and reduce level of assistance required from caregivers. Pt has the following impairments: impaired activity tolerance, gross functional weakness, impaired posture, impaired balance,impaired cognition, and poor transfer sequencing, which is limiting the pt from returning to prior level of function. PT RECOMMENDATIONS Discharge Destination Subacute rehab Discharge Equipment Defer to facility PLAN Pt may continue to benefit from skilled PT for addressing patient's impairments and reducing patient's participation restrictions and activity limitations. PT GOALS PT GOAL DETAILS Goal Established Date Time Frame Goal Status PT Goal 1: Patient to perform supine <> sit IND with HOB flat and no use of bed rails to simulate home environment. 06/02/25 2 weeks PT Goal 2: Patient to perform sit <> stand with min assist to improve functional mobility. 06/02/25 2 weeks PT Goal 3: Patient to transfer to/from wheelchair with min assist to improve functional mobility and decrease caregiver burden. 06/02/25 2 weeks PT Goal 4: Patient to propel self in wheelchair at least 100ft on even surface with SBA. 06/02/25 2weeks PT Goal 5: Patient to tolerate static/dynamic sitting balance x 10 minutes with SBA to improve sitting balance for participation in upright activity. 06/02/25 2 weeks Written by Amanda Michaels on 06/05/25 at 1:52 PM. * Progress Notes - Jenae Jones MD - 06/05/2025 10:04 AM EDT [facility] Progress Note Patient: Mar Waldron Admit Date: 06/01/2025 Reason for Consult: ESRD Subjective Reviewed the interval events, flowsheets, labs and the notes. No acute events overnight. Had intervention with interventional nephrology yesterday with successful improvement to AVF. Dialysis afterwards yesterday with 2L UF and completed without issues. Objective Visit Vitals BP (!) 141/63 (BP Location: Right arm, Patient Position: Lying) Pulse 63 Temp 36.5 ??C (97.7 ??F) (Oral) Resp 13 Ht 1.702 m (5' 7 ) Wt 60.3 kg (132 lb 15 oz) SpO2 93% BMI 20.82 kg/m?? OB Status Hysterectomy Smoking Status Every Day BSA 1.69 m?? Temp: [36.4 ??C (97.5 ??F)-37.1 ??C (98.7 ??F)] 36.5 ??C (97.7 ??F) Heart Rate: [56-72] 63 Resp: [10-24] 13 BP: (98-180)/(40-90) 141/63 Intake/Output Summary (Last 24 hours) at 06/05/2025 1004 Last data filed at 06/05/2025 0436 Gross per 24 hour Intake 425 ml Output 2300 ml Net -1875 ml Problem List Problem List[1] Medications: Current Medications: Current Scheduled Medications[2] Current Continuous Medications[3] Physical Exam: Gen: Chronically ill-appearing, NAD HEENT: MMM, OP clear without lesions or exudate Neck: Supple CV: Warm and well perfused Pulm: Normal respiratory effort, on room air Abd: Soft, non-tender, non-distended. Ext: Trace edema Skin: No jaundice. No rashes noted on observed skin Neuro: Alert, follows simple commands. Moving all extremities Access: LUE AVF, no thrill Laboratory: Renal Panel: Lab Results Component Value Date NA 139 06/05/2025 K 3.9 06/05/2025 CL 98 06/05/2025 CO2 23 06/05/2025 BUN 47 (H) 06/05/2025 PHOS 4.2 06/05/2025 MBD: Lab Results Component Value Date CALCIUM 8.0 (L) 06/05/2025 CAION 4.5 (L) 06/01/2025 PHOS 4.2 06/05/2025 CBC: Lab Results Component Value Date WBC 8.76 06/05/2025 RBC 3.00 (L) 06/05/2025 HGB 8.0 (L) 06/05/2025 HCT 28.8 (L) 06/05/2025 PLT 42 (L) 06/05/2025 MCV 96 06/05/2025 MCH 26.7 06/05/2025 MCHC 27.8 (L) 06/05/2025 RDW 15.8 (H) 06/05/2025 NRBC 0.3 (H) 06/05/2025 Iron studies: Lab Results Component Value Date TIBC 234 (L) 06/28/2024 Impression & Plan: Ms. Mar Waldron is a 55 y.o. woman with a hx of ESRD on HD, HTN, COPD, CAD s/p CABG/PCI/COSME, HLD, and HFpEF who was admitted to [facility] on 06/02 for concerns of thrombosed fistula. Outpatient HD: - Schedule: MWF - Dialysis Unit: [facility] - Outpatient Machine Tracer: Dr. Summers - Residual renal functions: Minimal - EDW: 59 kg - Access: LUE AVF Assessment and Plan: #AVF malfunction s/p angio 06/04 #Hypervolemia #Hypertension #Anemia in CKD #CKD-MBD #ESRD on HD #Left Inferior Pole Renal Mass - Noted on MRI from February 2025 - has Urology appt scheduled in June - Plan for next iHD session tomorrow and then can resume MWF schedule. - Rx: 3hrs, BFR 300-400 mL/min, DFR 600-800 mL/min, 3K, 2.25Ca, 32HCO3, 138Na, UF 2L, T35.5 C - Continue home anti-hypertensives Will assess need for UMESH; Hgb currently 7.9 - Please continue home Phos binders (Renvela) when tolerating PO - Recommend low K, low P diet while inpatient - Please renally dose medications for iHD Nephrology will continue to follow for the duration of this admission. Please call or page with anyquestions. Jenae Jones MD Nephrology Fellow PGY-5 Page: [phone] [1] Patient Active Problem List Diagnosis Volume overload ESRD (end stage renal disease) ([facility]) CHF (congestive heart failure) ([facility]) Pleural effusion Acute hypoxic respiratory failure Acute pulmonary edema ([facility]) GI bleed [2] aspirin, 81 mg, Oral, Daily atorvastatin, 80 mg, Oral, Nightly doxazosin, 2 mg, Oral, Nightly escitalopram, 10 mg, Oral, Daily eucerin, 1 Application, Topical, BID ezetimibe, 10 mg, Oral, Daily hydrALAZINE, 25 mg, Oral, TID levothyroxine, 88 mcg, Oral, Daily before breakfast pantoprazole, 40 mg, Oral, Daily senna, 2 tablet, Oral, BID sevelamer carbonate, 800 mg, Oral, TID with meals [3] sodium chloride, 10 mL/hr Cosigned by Tiny Summers MD at 06/05/2025 1:45 PM EDT Associated attestation - Tiny Summers MD - 06/05/2025 1:45 PM EDT I saw and evaluated the patient. I discussed the case with the resident/fellow and agree with the findings and plan as documented. * Care Plan - Florence Phelan - 06/05/2025 3:28 AM EDT Problem: Adult Inpatient Plan of Care Goal: Plan of Care Review Outcome: Ongoing, Progressing Flowsheets (Taken 06/05/2025 0324) Progress: no change Outcome Evaluation: Patient will remain free from falls/injury during this shift. Plan of Care Reviewed With: patient Goal: Patient-Specific Goal (Individualized) Outcome: Ongoing, Progressing Flowsheets (Taken 06/04/20251999) Patient/Family-Specific Goals (Include Timeframe): Patient will remain free from falls/injury durinf this shift. Individualized Care Needs: safety Anxieties, Fears or Concerns: none stated Goal: Absence of Hospital-Acquired Illness or Injury Outcome: Ongoing, Progressing Intervention: Identify and Manage Fall Risk Flowsheets (Taken 06/05/2025323) Safety Promotion/Fall Prevention: activity supervised clutter-free environment maintained safety round/check completed room organization consistent fall prevention program maintained Intervention: Prevent Skin Injury Flowsheets (Taken 06/05/2025323) Body Position: sitting up in bed Skin Protection: silicone foam dressing in place Intervention: Prevent and Manage VTE (Venous Thromboembolism) Risk Flowsheets (Taken 06/05/2025323) VTE Prevention/Management: SCDs (sequential compression devices) off patient refused intervention Intervention: Prevent Infection Flowsheets (Taken 06/05/2025323) Infection Prevention: cohorting utilized Goal: Optimal Comfort and Wellbeing Outcome: Ongoing, Progressing Intervention: Monitor Pain and Promote Comfort Flowsheets (Taken 06/05/2025323) Pain Management Interventions: pillow support provided position adjusted Intervention: Provide Person-Centered Care Flowsheets (Taken 06/05/2025323) Trust Relationship/Rapport: care explained emotional support provided Problem: Skin Injury Risk Increased Goal: Skin Health and Integrity Outcome: Ongoing, Progressing Intervention: Optimize Skin Protection Flowsheets (Taken 06/05/2025323) Activity Management: activity adjusted per tolerance Pressure Reduction Techniques: positioned off wounds heels elevated off bed weight shift assistance provided Pressure Reduction Devices: pressure-redistributing mattress utilized foam padding utilized positioning supports utilized Skin Protection: silicone foam dressing in place Head of Bed (HOB) Positioning: HOB elevated Intervention: Promote and Optimize Oral Intake Flowsheets (Taken 06/05/2025323) Oral Nutrition Promotion: rest periods promoted Nutrition Interventions: food preferences provided Problem: Fall Injury Risk Goal: Absence of Fall and Fall-Related Injury Outcome: Ongoing, Progressing Intervention: Identify and Manage Contributors Flowsheets (Taken 06/05/2025323) Medication Review/Management: medications reviewed Self-Care Promotion: independence encouraged BADL personal objects within reach Intervention: Promote Injury-Free Environment Flowsheets (Taken 06/05/2025323) Safety Promotion/Fall Prevention: activity supervised clutter-free environment maintained safety round/check completed room organization consistent fall prevention program maintained Problem: Gas Exchange Impaired Goal: Optimal Gas Exchange Outcome: Ongoing, Progressing Intervention: Optimize Oxygenation and Ventilation Flowsheets (Taken 06/05/2025 0324) Airway/Ventilation Management: oxygen therapy provided Head of Bed (HOB) Positioning: HOB elevated Problem: Mobility Impairment Goal: Optimal Mobility Outcome: Ongoing, Progressing Intervention: Optimize Mobility Flowsheets (Taken 06/05/2025 0324) Activity Management: activity adjusted per tolerance Positioning/Transfer Devices: pillows repositioning sheet Problem: Hemodialysis Goal: Safe, Effective Therapy Delivery Outcome: Ongoing, Progressing Intervention: Optimize Device Care and Function Flowsheets (Taken 06/05/2025 032) Medication Review/Management: medications reviewed Goal: Effective Tissue Perfusion Outcome: Ongoing, Progressing Intervention: Optimize Blood Flow Flowsheets (Taken 06/05/2025 032) Stabilization Measures: legs elevated Goal: Absence of Infection Signs and Symptoms Outcome: Ongoing, Progressing Intervention: Prevent or Manage Infection Flowsheets (Taken 06/05/2025 032) Infection Management: aseptic technique maintained Fever Reduction/Comfort Measures: lightweight bedding lightweight clothing Infection Prevention: cohorting utilized * Query Clarification Note - Mayra Rogers MD - 06/04/2025 8:51 PM EDT Physician Clarification Please review and specify a diagnosis that correlates with these findings: [x]Reduced mobility []Limitations of activity due to disability []Other condition, please specify This documentation will become part of the patient's medical record. * Care Plan - Ean Cowart RN - 06/04/2025 5:28 PM EDT Problem: Adult Inpatient Plan of Care Goal: Plan of Care Review Outcome: Ongoing, Progressing Flowsheets (Taken 06/04/2025 1725) Progress: no change Plan of Care Reviewed With: patient Goal: Patient-Specific Goal (Individualized) Outcome: Ongoing, Progressing Flowsheets (Taken 06/04/2025 1700) Patient/Family-Specific Goals (Include Timeframe): Patient will remain free from falls/injury during this shift. Individualized Care Needs: safety Anxieties, Fears or Concerns: none stated Goal: Absence of Hospital-Acquired Illness or Injury Outcome: Ongoing, Progressing Intervention: Identify and Manage Fall Risk Flowsheets (Taken 06/04/2025 1700) Safety Promotion/Fall Prevention: activity supervised assistive device/personal items within reach clutter-free environment maintained fall prevention program maintained nonskid shoes/slippers when out of bed room organization consistent safety round/check completed Intervention: Prevent Skin Injury Flowsheets (Taken 06/04/2025 1700) Body Position: turned Goal: Optimal Comfort and Wellbeing Outcome: Ongoing, Progressing Intervention: Provide Person-Centered Care Flowsheets (Taken 06/04/2025 172) Trust Relationship/Rapport: care explained choices provided emotional support provided empathic listening provided Problem: Skin Injury Risk Increased Goal: Skin Health and Integrity Outcome: Ongoing, Progressing Intervention: Optimize Skin Protection Flowsheets (Taken 06/04/2025 170) Activity Management: activity adjusted per tolerance Head of Bed (HOB) Positioning: HOB elevated Problem: Fall Injury Risk Goal: Absence of Fall and Fall-Related Injury Outcome: Ongoing, Progressing Intervention: Identify and Manage Contributors Flowsheets (Taken 06/04/2025 172) Medication Review/Management: medications reviewed Self-Care Promotion: independence encouraged BADL personal objects within reach Intervention: Promote Injury-Free Environment Flowsheets (Taken 06/04/2025 1700) Safety Promotion/Fall Prevention: activity supervised assistive device/personal items within reach clutter-free environment maintained fall prevention program maintained nonskid shoes/slippers when out of bed room organization consistent safety round/check completed Problem: Gas Exchange Impaired Goal: Optimal Gas Exchange Outcome: Ongoing, Progressing Intervention: Optimize Oxygenation and Ventilation Flowsheets Taken 06/04/20251724 Airway/Ventilation Management: oxygen therapy provided Taken 06/04/2025 170 Head of Bed (HOB) Positioning: HOB elevated Problem: Mobility Impairment Goal: Optimal Mobility Outcome: Ongoing, Progressing Intervention: Optimize Mobility Flowsheets (Taken 06/04/2025 1700) Activity Management: activity adjusted per tolerance Problem: Hemodialysis Goal: Safe, Effective Therapy Delivery Outcome: Ongoing, Progressing Intervention: Optimize Device Care and Function Flowsheets (Taken 06/04/2025 172) Medication Review/Management: medications reviewed Goal: Effective Tissue Perfusion Outcome: Ongoing, Progressing Intervention: Optimize Blood Flow Flowsheets (Taken 06/04/2025 172) Stabilization Measures: legs elevated Goal: Absence of Infection Signs and Symptoms Outcome: Ongoing, Progressing Intervention: Prevent or Manage Infection Flowsheets (Taken 06/04/2025 1725) Fever Reduction/Comfort Measures: lightweight bedding Infection Prevention: cohorting utilized * Post-Procedure Note - Medina Ferris MD - 06/04/2025 3:29 PM EDT Vascular and Interventional Radiology Brief Postprocedure Note Attending: Dr. Ferris Pre-operative Diagnosis: ESRD on HD Post-operative Diagnosis: POBA of inflow to 7 mm, anastomosis to 4 mm Type of Anesthesia: Local Description of Findings: Severe juxta-anastomotic stenosis Technical/Surgical Procedures Used: Fluoroscopy, US Specimen Obtained: No Complications: None Estimated Blood Loss: minimal Procedure Events Event Event Time See detailed result report with images in PACS. The patient tolerated the procedure well without incident or complication and is in stable condition. * Progress Notes - Flako Rai MD - 06/04/2025 2:10 PM EDT Images from the original note were not included. Hospital Medicine Progress Note Subjective Subjective No acute events overnight. Discussed plans for dialysis today. No chest pain, difficulty breathing,belly pain. Additional History was obtained from nurse. No stool overnight or on his shift. Objective Objective Last Recorded Vitals Blood pressure (!) 148/50, pulse 63, temperature 36.9 ??C (98.4 ??F), temperature source Temporal, resp. rate 13, height 1.702 m (5' 7 ), weight 60.3 kg (132 lb 15 oz), SpO2 100%. Physical Exam Vitals and nursing note reviewed. Constitutional: General: She is awake. HENT: Head: Atraumatic. Eyes: General: No scleral icterus. Cardiovascular: Rate and Rhythm: Regular rhythm. Heart sounds: Normal heart sounds. Pulmonary: Effort: Pulmonary effort is normal. Breath sounds: No wheezing. Abdominal: Palpations: Abdomen is soft. Tenderness: There is no abdominal tenderness. There is no guarding. Musculoskeletal: General: No tenderness. Right lower leg: No edema. Left lower leg: No edema. Skin: General: Skin is warm and dry. Neurological: General: No focal deficit present. Mental Status: She is alert and oriented to person, place, and time. Psychiatric: Mood and Affect: Mood normal. Data Reviewed the following Notes: Nephrology: AVF angiogram with declot today, if unsuccessful TDC placement Labs personally reviewed: CBC: Anemia stable; thrombocytopenia stable CMP: Potassium stable, creatinine increasing, BUN increasing, anion gap stable, alk phos stable/decreasing, phosphorus increased Blood cultures: No growth to date Imaging None Assessment/Plan Assessment & Plan Principal Problem: Acute hypoxic respiratory failure Active Problems: ESRD (end stage renal disease) ([facility]) CHF (congestive heart failure) ([facility]) Pleural effusion Acute pulmonary edema ([facility]) GI bleed Mar Waldron is a 55 y.o. female admitted for acute hypoxic respiratory failure This condition poses an acute threat to life/bodily function. 06/04/25: Patient remains comfortable and stable on 2 L nasal cannula in setting of acute hypoxic respiratory failure. Plan for dialysis today following fistula angiogram with declot or tunneled dialysis catheter placement. Case management confirmed that patient has a dialysis chair at [facility] a [facility] schedule, subacute rehab referral sent to [facility] in [facility]. #Acute hypoxic respiratory failure likely due to volume overload causing Pleural effusion likely due to missed dialysis and being anuric - Subjectively dyspneic; O2 saturation appropriate on 2L NC - Chart review shows history COPD though no PFTs available; history of pleural effusion, 06/2024 thoracentesis with lights criteria being transudative - Respiratory panel negative; labs insignificant for infectious process; remains afebrile with noninfectious clinical presentation PLAN - Plan for HD per nephrology - We will re-evaluate following HD, will consider further workup if O2 requirement remains following dialysis #Concern for Thrombosed LUE Fistula - HD clinic had difficulty accessing fistula on 05/31/2025; positive thrill on physical exam - U/S demonstrates that the radiocephalic AV fistula is patent but flows are below normal limits with hemodynamically significant stenosis PLAN - Plan for LUE AVF angiography w/ possibly angioplasty today with Interventional Nephrology #ESRD on iHD with associated hyperphosphatemia, AGMA, and hypervolemia due to missed dialysis #Anion Gap - Dialysis chair at [facility] on a MWF schedule - Dry weight 59kg, has AVF PLAN - Start Renvela 800 mg 3 times a day with meals - Hold other scheduled dialysis medications at this time - Nephrology consulted - plan for HD today #Acute Encephalopathy - improved/resolved - vs Subacute given history. Family describes progressive cognitive decline over course of years but with worsening over past few weeks since taking over care. - Alert to voice, speaks in short phrases, answers orientation questions, expresses opinions, drowsy - Metabolic- BG wnl; evelated TSH with T4 0.06 (consistent with previous lab 1mo ago) - Toxic- Lots of NyQuil in past, but no recent use per sons PLAN - Follow-up blood cultures - increase levothyroxine to 88 mcg daily - Continue home Lexapro; continue evaluate for depression outpatient given major life changes over the past several weeks, consider titrating as necessary #Anemia with report of black stools on Chronic anemia and thrombocytopenia - Black chalky stools reported by sons; no melena no hematochezia; chronic anemia; hemodynamically stable - Formed, brown stools reported by nursing staff - Low concern for GI bleed at this time; both anemia and thrombocytopenia better explained by ESRD - Hemoglobin has remained stable during admission without any signs or symptoms of bleeding PLAN - Discontinue Protonix 40 mg IV twice daily - Continue to monitor for signs and symptoms of bleeding #CAD - Hx of ME with COSME to mLAD, distant - Home medications include Plavis & ASA 325 PLAN - Continue ASA 81 in setting of prior stenting - Hold home clopidogrel; discontinue aspirin 325 mg daily at discharge #Renal Mass concerning for RCC - Left renal mass concerning for renal cell carcinoma - Previous ultrasound and MRI PLAN - Have initial oncology visits scheduled for later this month #Acute on chronic CHF (HFpEF) - TTE evaluation limited given patient asking to stop - Volume overload better explained by ESRD w/o HD - ProBNP greater than 70K PLAN - Continue to monitor - Establish cardiology follow-up outpatient #Asymptomatic Sinus Bradycardia - Hemodynamically stable - History of hypothyroidism, takes carvedilol 25 mg daily twice daily PLAN - Follow-up TSH with T4 reflex - Hold home carvedilol #Severe Protein-Calorie Malnutrition - High Risk for Refeeding - Art Installer consult #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, Malnutrition, & Inability to Perform ADLs - PT/OT Consult #Stage 3 Pressure Ulcer - Wound consult Chronic Medical Conditions #HTN: HomeCoreg 25 BID, Hydral 50 q6h not ordered; hydralazine 25 mg 3 times daily started, we willconsider increasing following blood pressures post-HD #HLD: Continue atorvastatin, Ezetimibe #Chronic Pain: Home reg is oxy 10/ APAP 300mg; oxycodone 5 mg by mouth every 6 hours as needed for severe pain #Left Eye Blindness #Hx of Stroke Syndrome; patient denies CVA history, unclear history?, weakness in all 4 extremitieswithout focal deficit, PT/OT Care today included: HIGHRISK: Discussion of management/test with another provider: Discussed care plan with Nephrology,we will start phosphate binders today. Electronically Signed by: Flako Rai MD - 06/04/2025 - 2:22 PM Cosigned by Mayra Rogers MD at 06/04/2025 9:32 PM EDT Associated attestation - Mayra Rogers MD - 06/04/2025 9:32 PM EDT I saw and evaluated the patient. I discussed the case with the resident/fellow and agree with the findings and plan as documented. MEDICAL DECISION MAKING: Data: - Additional history was obtained from nurse who noted she was tired this morning - Reviewed the following notes: procedure note from today regarding her stenosis - Reviewed labs which are significant for: stable anemia/thrombocytopenia, rising BUN, normal K, normal AST/ALT/T bili, hyperphosphatemia - We ordered CBC and BMP in AM for monitoring WBC, Hgb, creatinine/K - My independent interpretation of telemetry demonstrates NSR with PVCs - We discussed the plan with nephrology who plans for procedure today and dialysis after Complexity of problems: - Current condition is not at goal, severity is severe as acute hypoxic respiratory failure is a severe threat to life and bodily function Mayra Rogers MD * Pre-Procedure Note - Medina Ferris MD - 06/04/2025 1:11 PM EDT Images from the original note were not included. INTERVENTIONAL RADIOLOGY SEDATION PRE-PROCEDURAL ASSESSMENT AND PLAN OF CARE Indication for procedure: The primary encounter diagnosis was Acute pulmonary edema (CMS/HCC). Diagnoses of End-stage renal disease needing dialysis (CMS/HCC), ESRD (end stage renal disease) (CMS/HCC), and Unspecified complication of cardiac and vascular prosthetic device, implant and graft, subsequent encounter were also pertinent to this visit. Planned Procedure: Fistulogram Relevant past medical history: None Previous problems with surgery, anesthesia or sedation: No Previous family history or problems with anesthesia or sedation: No History of tobacco use, alcohol use, or substance abuse: Tobacco Use History[1], Social History Substance and Sexual Activity Alcohol Use No , Social History Substance and Sexual Activity Drug Use Not on file Height and Weight: Visit Vitals BP (!) 137/43 (BP Location: Right arm, Patient Position: Lying) Pulse 63 Temp 36.9 ??C (98.4 ??F) (Temporal) Ht 1.702 m (5' 7 ) Wt 60.3 kg (132 lb 15 oz) SpO2 93% BMI 20.82 kg/m?? Allergies to medication: Basaglar kwikpen [insulin glargine] and Lisinopril Current medications: Current Medications[2] Relevant Labs: Lab Results Component Value Date CREATININE 4.69 (H) 06/04/2025 EGFR 10.4 06/04/2025 INR 1.2 (H) 06/22/2024 Planned Sedation/Anesthesia: Moderate Airway assessment: normal Mallampati Score: III (soft and hard palate and base of uvula visible) ASA: ASA 3 - Patient with moderate systemic disease with functional limitations Directed physical examination: Vitals: 06/04/25 1136 BP: (!) 137/43 Pulse: 63 Resp: 16 Temp: 36.9 ??C (98.4 ??F) SpO2: 93% GENERAL: Awake, alert, NAD HEENT: NCAT NECK: No appreciable JVD CARDIAC: Regular rate, regular rhythm, normal S1/S2, no m/r/g, 2+ radial pulses bilaterally PULM: CTAB without increased work of breathing ABD: Soft, NT, ND EXT: Warm and well perfused, no LE edema SKIN: No rashes or lesions NEURO: A&Ox4, moving all extremities spontaneously Benefits, risks and alternatives of procedure and planned sedation have been discussed with the patient and/or their service liaison representative. All questions answered and they agree to proceed. [1] Social History Tobacco Use Smoking Status Every Day Smokeless Tobacco Not on file [2] Current Facility-Administered Medications Medication Dose Route Frequency Provider Last Rate Last Admin aspirin chewable tablet 81 mg 81 mg Oral Daily Flako Rai MD 81 mg at 06/04/25 08 atorvastatin (Lipitor) tablet 80 mg 80 mg Oral Nightly CarolinaRoger wooten DO 80 mg at 06/03/252009 bisacodyl (Dulcolax) suppository 10 mg 10 mg Rectal Daily Flako Rai MD doxazosin (Cardura) tablet 2 mg 2 mg Oral Nightly CarolinaRoger wooten DO 2 mg at 06/03/252009 escitalopram (Lexapro) tablet 10 mg 10 mg Oral Daily Flako Rai MD 10 mg at 06/04/25 0842 eucerin cream 1 Application 1 Application Topical BID Flako Rai MD 1 Application at 06/04/25 0855 ezetimibe (Zetia) tablet 10 mg 10 mg Oral Daily Roger Figueroa DO 10 mg at 06/04/25 0841 hydrALAZINE (Apresoline) tablet 25 mg 25 mg Oral TID Flako Rai MD 25 mg at 06/04/25 0841 levothyroxine (Synthroid, Levoxyl) tablet 88 mcg 88 mcg Oral Daily before breakfast Missy Rai MD 88 mcg at 06/04/25 0639 ondansetron (Zofran) injection 4 mg 4 mg Intravenous q6h PRN Edvin Du R, DO oxyCODONE (Roxicodone) immediate release tablet 5 mg 5 mg Oral q6h PRN Edvin Du, DO 5 mg at 06/04/25 0841 pantoprazole (Protonix) injection 40 mg 40 mg Intravenous BID Flako Rai MD 40 mg at 06/04/25 0842 senna (Senokot) tablet 17.2 mg 2 tablet Oral BID Flako Rai MD sevelamer carbonate (Renvela) tablet 800 mg 800 mg Oral TID with meals Flako Rai MD 800 mgat 06/04/25 0842 * Interval H&P Note - Medina Ferris MD - 06/04/2025 1:11 PM EDT H&P reviewed. The patient was examined and there are no changes to the H&P and the surgicalsite was marked. Source Note - Ramin Spencer MD - 06/02/2025 7:37 AM EDT Consult to Nephrology Consult performed by: Ramin Spencer MD Consult ordered by: Senthil Carnes MD Reason for consult: ESRD, access issue Nephrology Dialysis Consult Note Patient: Mar Waldron Admit Date: 06/01/2025 Date of Consult: 06/02/2025 Time of Consult: 7:43 AM Requesting Attending: Neno Yancey MD Reason for Consult: ESRD management HPI: Mrs Mar Waldron is a 54 y.o. female with a history of ESRD on iHD, HTN, COPD, HFpEF, CAD, HLD, Hypothyroidism, T2DM who presented to the ED for SOA and concern for AMS. Patient had been to her HD unit on Tuesday and had difficulty with access of LUE AVF. Per report patient has been attending outpatient hemodialysis unit without issues. Son had reported that patient had a fall in the shower and hit her head this past week, however she was taken to an outside ED and reportedly had negative CT head. She went to her dialysis unit on Tuesday for scheduled [employer] however had issues with inabilityto access fistula. Son additionally reported concerns for altered mentation stating that mom was not herself. Nephrology consulted for ESRD management while inpatient. ROS: ROS was obtained in 14 points [...] Resource Strain: High Risk (06/17/2024) Received from [facility] ([place], [place], [place], [place]) Financial Resource Strain How hard is [...] No Physical Activity: Inactive (06/17/2024) Received from [facility] ([place], [place], [place], [place]) Physical Activity Number of minutes of exercise per week : 0 Stress: No Stress Concern Present (04/15/2024) Received from [facility] ([place], [place], [place], [place]) Stress Feeling stress past 2 weeks: 1 Social Connections: Unknown (06/25/2024) Social Connection and Isolation Panel Frequency of Communication with Friends and Family: Not on file Frequency of Social Gatherings with Friends and Family: Not on file Attends [employer] Services: Not on file Active Member of Clubs or Organizations: Not on file Attends Club or Organization Meetings: Not on file Marital Status: Living with partner Intimate Partner Violence: Not At Risk (07/02/2024) Received from [facility] Abuse Screen Feels Unsafe at Home or [...] Medications[8] Physical Exam: Visit Vitals BP (!) 117/39 (BP Location: Right arm, Patient Position: Lying) Pulse 57 Temp 36.5 ??C (97.7 ??F) (Oral) Resp 18 Ht 1.702 m (5' 7 ) Wt 60.8 kg (134 lb) SpO2 91% BMI 20.99 kg/m?? Smoking Status Every Day BSA 1.7 m?? Gen: Awake, alert, NAD HEENT: MMM, OP clear without lesions or exudate Neck: Supple CV: Regular rhythm, Normal S1/S2 Pulm: Clear to auscultation, normal respiratory effort Abd: Soft, non-tender, non-distended. Active BS. Ext: No edema Skin: No jaundice. No rashes noted on observed skin Neuro: Alert and oriented. Moving all extremities Access: LUE forearm fistula without thrill Laboratory: CBC: Results from last 7 days Lab Units 06/02/25 0407 06/01/25 1647 WBC 10*3/uL 6.73 6.37 HEMOGLOBIN g/dL 7.7* 8.6* HEMATOCRIT % 27.9* 30.3* PLATELETS 10*3/uL -- 46* CMP: Results from last 7 days Lab Units 06/02/25 0407 06/01/25 1647 SODIUM mmol/L 136 138 POTASSIUM mmol/L 3.6 3.4* CHLORIDE mmol/L 96* 96* CO2 mmol/L 22 25 BUN mg/dL 61* 57* CREATININE mg/dL 3.90* 3.87* CALCIUM mg/dL 8.1* 8.3* BILIRUBIN TOTAL mg/dL 0.3 0.3 ALKALINE PHOSPHATASE U/L 194* 224* ALT U/L <5* <5* AST U/L 20 19 GLUCOSE mg/dL 132* 166* Impression & Plan: Mrs Waldron is a 54 y.o. wo/man with a history of ESRD on iHD, HTN, COPD, HFpEF who presented to ED on 05/06 for lab check and possible iHD. Nephrology consulted for ESRD management. Outpatient HD: - Schedule: Not established yet, likely MWF - Dialysis Unit: [facility] - Outpatient Machine Tracer: Dr. Tiny Summers - Residual renal functions: - EDW: previously 59kg, will need new challenge weight outpatient - Access: LUE Forearm AVF Assessment and Plan: #Hypervolemia #Hypertension #Anemia in CKD #CKD-MBD #ESRD on HD #Left Inferior Pole Renal Mass - Noted on MRI from February 2025 Recommendations: - No urgent indications for HD, can begin pending access - Plan for LUE AVF angiography w/ possibly angioplasty Monday 06/04 - Additional workup of AMS as unlikely to be uremia, consider head imaging given h/o fall - Will continue home MWF HD schedule while inpatient; Rx 136 Na 2 K 2.25 Ca 32 Co2 2-3 L UF as tolerated 3 hours - Will assess need for UMESH; Hgb currently 7.7 - Please resume home Phos binders (Renvela) when tolerating PO - Please obtain daily weights, strict I's and O's. - Recommend low K, low P diet while inpatient - Renally dose medications for iHD Please call or page with any questions. We will follow along for the duration of this admission. Ramin Spencer MD Department of Nephrology PGY-4 Pager: [phone]; Epic Chat Preferred [1] Past Medical History: Diagnosis Date Arthritis CHF (congestive heart failure) ([facility]) Chronic renal failure Coronary artery disease Diabetes mellitus ([facility]) HTN (hypertension) Hypothyroidism Renal cancer ([facility]/HCC) [2] Patient Active Problem List Diagnosis Volume overload ESRD (end stage renal disease) ([facility]) CHF (congestive heart failure) ([facility]) Pleural effusion Acute hypoxic respiratory failure [3] Past Surgical History: Procedure Laterality Date APPENDECTOMY SECTION, LOW TRANSVERSE CHOLECYSTECTOMY CORONARY ARTERY BYPASS GRAFT Bilateral HYSTERECTOMY TONSILLECTOMY [4] Family History Problem Relation Name Age of Onset Diabetes Mother Diabetes Father Hypertension Mother Hypertension Father Other cancer Mother Other cancer Father Hyperlipidemia Mother Hyperlipidemia Father [5] Allergies Allergen Reactions Basaglar Kwikpen [Insulin Glargine] Other - please document in the comment field Lisinopril Cough and Unknown - Patient states they do not know rxn details Cough [6] Current Facility-Administered Medications: atorvastatin (Lipitor) tablet 80 mg, 80 mg, Oral, Nightly, Roger Figueroa, DO doxazosin (Cardura) tablet 2 mg, 2 mg, Oral, Nightly, CarolinaRoger wooten, DO ezetimibe (Zetia) tablet 10 mg, 10 mg, Oral, Daily, CarolinaRoger wooten, DO levothyroxine (Synthroid, Levoxyl) tablet 75 mcg, 75 mcg, Oral, Daily before breakfast, Roger Figueroa, DO ondansetron (Zofran) injection 4 mg, 4 mg, Intravenous, q6h PRN, Edvin Du R, DO oxyCODONE (Roxicodone) immediate release tablet 5 mg, 5 mg, Oral, q6h PRN, Edvin Du R, DO pantoprazole (Protonix) EC tablet 40 mg, 40 mg, Oral, Daily, Roger Figueroa, DO Insert peripheral IV, , , Once AND Saline lock IV, , , Once AND sodium chloride 0.9 % flush10 mL, 10 mL, Intravenous, q12h AND sodium chloride 0.9 % flush 10 mL, 10 mL, Intravenous, PRN,Edvin Du R, DO Current Outpatient Medications: albuterol 108 (90 Base) [...] Rfl: 0 ergocalciferol (Vitamin D-2) 1.25 MG (69876 UT) capsule, Take 1 capsule (50,000 Units) [...] days., Disp: 4 tablet, Rfl: 0 [7] atorvastatin, 80 mg, Oral, Nightly doxazosin, 2 mg, Oral, Nightly ezetimibe, 10 mg, Oral, Daily levothyroxine, 75 mcg, Oral, Daily before breakfast pantoprazole, 40 mg, Oral, Daily sodium chloride, 10 mL, Intravenous, q12h [8] Cosigned by Medina Ferris MD at 06/03/2025 10:16 AM EDT * Progress Notes - Jenae Jones MD - 06/04/2025 10:49 AM EDT Nephrology Progress Note Patient: Mar Waldron Admit Date: 06/01/2025 Reason for Consult: ESRD Subjective Reviewed the interval events, flowsheets, labs and the notes. No acute events overnight. Patient denies any concerns this AM and is agreeable with AVF angiogram with intervention today and placement of TDC if necessary. Plan for dialysis afterwards. Objective Visit Vitals BP (!) 119/95 (BP Location: Right arm, Patient Position: Lying) Pulse 64 Temp 37.1 ??C (98.7 ??F) (Oral) Resp 22 Ht 1.702 m (5' 7 ) Wt 60.3 kg (132 lb 15 oz) SpO2 94% BMI 20.82 kg/m?? Smoking Status Every Day BSA 1.69 m?? Temp: [36.6 ??C (97.8 ??F)-37.1 ??C (98.8 ??F)] 37.1 ??C (98.7 ??F) Heart Rate: [54-76] 64 Resp: [11-22] 22 BP: (119-155)/(56-95) 119/95 No intake or output data in the 24 hours ending 06/04/25 1049 Problem List Problem List[1] Medications: Current Medications: Current Scheduled Medications[2] Current Continuous Medications[3] Physical Exam: Gen: Chronically ill-appearing, NAD HEENT: MMM, OP clear without lesions or exudate Neck: Supple CV: Warm and well perfused Pulm: Normal respiratory effort, on room air Abd: Soft, non-tender, non-distended. Ext: Trace edema Skin: No jaundice. No rashes noted on observed skin Neuro: Arousable, follows simple commands. Moving all extremities Access: LUE AVF, no thrill Laboratory: Renal Panel: Lab Results Component Value Date NA 137 06/04/2025 K 3.6 06/04/2025 CL 96 (L) 06/04/2025 CO2 23 06/04/2025 BUN 75 (H) 06/04/2025 PHOS 5.7 (H) 06/04/2025 MBD: Lab Results Component Value Date CALCIUM 8.1 (L) 06/04/2025 CAION 4.5 (L) 06/01/2025 PHOS 5.7 (H) 06/04/2025 CBC: Lab Results Component Value Date WBC 7.90 06/04/2025 RBC 2.97 (L) 06/04/2025 HGB 7.9 (L) 06/04/2025 HCT 28.4 (L) 06/04/2025 PLT 42 (L) 06/04/2025 MCV 96 06/04/2025 MCH 26.6 06/04/2025 MCHC 27.8 (L) 06/04/2025 RDW 15.8 (H) 06/04/2025 NRBC 0.4 (H) 06/04/2025 Iron studies: Lab Results Component Value Date TIBC 234 (L) 06/28/2024 Impression & Plan: Ms. Mar Waldron is a 55 y.o. woman with a hx of ESRD on HD, HTN, COPD, CAD s/p CABG/PCI/COSME, HLD, and HFpEF who was admitted to [facility] on 06/02 for concerns of thrombosed fistula. Outpatient HD: - Schedule: MWF - Dialysis Unit: [facility] - Outpatient Machine Tracer: Dr. Summers - Residual renal functions: Minimal - EDW: 59 kg - Access: LUE AVF Assessment and Plan: #Hypervolemia #Hypertension #Anemia in CKD #CKD-MBD #ESRD on HD #Left Inferior Pole Renal Mass - Noted on MRI from February 2025 - Will need Urology follow-up - Will plan for AVF angiogram with de-clot today and if unsuccessful, TDC placement (consent obtained 06/03) - Plan for iHD following procedures - Rx: 3hrs, BFR 300-400 mL/min, DFR 600-800 mL/min, 3K, 2.25Ca, 32HCO3, 138Na, UF 2L, T35.5 C - Continue home anti-hypertensives Will assess need for UMESH; Hgb currently 7.9 - Please continue home Phos binders (Renvela) when tolerating PO - Recommend low K, low P diet while inpatient - Please renally dose medications for iHD Nephrology will continue to follow for the duration of this admission. Please call or page with anyquestions. Jenae Jones MD Nephrology Fellow PGY-5 Page: [phone] [1] Patient Active Problem List Diagnosis Volume overload ESRD (end stage renal disease) ([facility]) CHF (congestive heart failure) ([facility]) Pleural effusion Acute hypoxic respiratory failure Acute pulmonary edema ([facility]) GI bleed [2] aspirin, 81 mg, Oral, Daily atorvastatin, 80 mg, Oral, Nightly bisacodyl, 10 mg, Rectal, Daily doxazosin, 2 mg, Oral, Nightly escitalopram, 10 mg, Oral, Daily eucerin, 1 Application, Topical, BID ezetimibe, 10 mg, Oral, Daily hydrALAZINE, 25 mg, Oral, TID levothyroxine, 88 mcg, Oral, Daily before breakfast pantoprazole, 40 mg, Intravenous, BID senna, 2 tablet, Oral, BID sevelamer carbonate, 800 mg, Oral, TID with meals [3] Cosigned by Tiny Summers MD at 06/05/2025 1:44 PM EDT Associated attestation - Tiny Summers MD - 06/05/2025 1:44 PM EDT I saw and evaluated the patient. I discussed the case with the resident/fellow and agree with the findings and plan as documented. * Progress Notes - Sobia Jeffers RN - 06/04/2025 9:55 AM EDT CM confirmed that patient has a dialysis chair at [facility] on a MWF schedule. Updated provided to dialysis clinic. CM will continue to follow. Update 11:38 Family requested referral be sent to [facility] [phone]. CM called and left voice mail. * Care Plan - Florence Phelan - 06/04/2025 4:06 AM EDT Problem: Adult Inpatient Plan of Care Goal: Plan of Care Review Outcome: Ongoing, Progressing Flowsheets (Taken 06/04/2025402) Progress: no change Outcome Evaluation: Patient will remain free from fall/injury during this shift. Plan of Care Reviewed With: patient Goal: Patient-Specific Goal (Individualized) Outcome: Ongoing, Progressing Flowsheets (Taken 06/03/2025 1930) Patient/Family-Specific Goals (Include Timeframe): Patient will remain free from falls/injury during this shift. Individualized Care Needs: safety Anxieties, Fears or Concerns: none stated Goal: Absence of Hospital-Acquired Illness or Injury Outcome: Ongoing, Progressing Intervention: Identify and Manage Fall Risk Flowsheets (Taken 06/04/2025402) Safety Promotion/Fall Prevention: activity supervised assistive device/personal items within reach clutter-free environment maintained fall prevention program maintained nonskid shoes/slippers when out of bed safety round/check completed room organization consistent Intervention: Prevent Skin Injury Flowsheets (Taken 06/04/2025402) Body Position: turned left Skin Protection: silicone foam dressing in place Intervention: Prevent and Manage VTE (Venous Thromboembolism) Risk Flowsheets (Taken 06/04/2025402) VTE Prevention/Management: SCDs (sequential compression devices) off Intervention: Prevent Infection Flowsheets (Taken 06/04/2025402) Infection Prevention: cohorting utilized environmental surveillance performed equipment surfaces disinfected hand hygiene promoted rest/sleep promoted single patient room provided Goal: Optimal Comfort and Wellbeing Outcome: Ongoing, Progressing Intervention: Monitor Pain and Promote Comfort Flowsheets (Taken 06/04/2025402) Pain Management Interventions: position adjusted pillow support provided relaxation techniques promoted quiet environment facilitated Intervention: Provide Person-Centered Care Flowsheets (Taken 06/04/2025 040) Trust Relationship/Rapport: care explained thoughts/feelings acknowledged emotional support provided Problem: Skin Injury Risk Increased Goal: Skin Health and Integrity Outcome: Ongoing, Progressing Intervention: Optimize Skin Protection Flowsheets (Taken 06/04/2025 040) Activity Management: activity adjusted per tolerance Pressure Reduction Techniques: positioned off wounds heels elevated off bed weight shift assistance provided Pressure Reduction Devices: pressure-redistributing mattress utilized foam padding utilized positioning supports utilized Skin Protection: silicone foam dressing in place Head of Bed (HOB) Positioning: HOB elevated Intervention: Promote and Optimize Oral Intake Flowsheets (Taken 06/04/2025402) Oral Nutrition Promotion: rest periods promoted Nutrition Interventions: food preferences provided Problem: Fall Injury Risk Goal: Absence of Fall and Fall-Related Injury Outcome: Ongoing, Progressing Intervention: Identify and Manage Contributors Flowsheets (Taken 06/04/2025 040) Medication Review/Management: medications reviewed Self-Care Promotion: independence encouraged BADL personal objects within reach Intervention: Promote Injury-Free Environment Flowsheets (Taken 06/04/2025 040) Safety Promotion/Fall Prevention: activity supervised assistive device/personal items within reach clutter-free environment maintained fall prevention program maintained nonskid shoes/slippers when out of bed safety round/check completed room organization consistent Problem: Gas Exchange Impaired Goal: Optimal Gas Exchange Outcome: Ongoing, Progressing Intervention: Optimize Oxygenation and Ventilation Flowsheets (Taken 06/04/2025 040) Airway/Ventilation Management: oxygen therapy provided position adjusted Head of Bed (HOB) Positioning: HOB elevated Problem: Mobility Impairment Goal: Optimal Mobility Outcome: Ongoing, Progressing Intervention: Optimize Mobility Flowsheets (Taken 06/04/2025 040) Activity Management: activity adjusted per tolerance Positioning/Transfer Devices: pillows repositioning sheet * Care Joshua - Linda Stephen RN - 06/03/2025 4:14 PM EDT Problem: Skin Injury Risk Increased Goal: Skin Health and Integrity Outcome: Ongoing, Progressing Intervention: Optimize Skin Protection Flowsheets (Taken 06/03/2025 1613) Pressure Reduction Techniques: positioned off wounds heels elevated off bed frequent weight shift encouraged Pressure Reduction Devices: pressure-redistributing mattress utilized foam padding utilized positioning supports utilized Skin Protection: silicone foam dressing in place Note: Patient evaluated by WOCN, individualized orders placed and care plan interventions placed, see wound care note for further details. * Progress Notes - Linda Stephen RN - 06/03/2025 4:09 PM EDT Images from the original note were not included. Wound Care Consult Visit Date: 06/03/2025 Patient Name: Mar Waldron Date of : 1970 Admit Date: 06/01/2025 Reason for Consult: New consult for buttock wound IP Wound Orders (From admission, onward) Start Ordered 06/02/25 1226 Wound ostomy eval and treat Once Comments: L buttock wound--see media. Pt is chair bound, does ambulate a few times / day. Fam at bedside requesting additional teaching info for at home care. If unable to see during this admission, please give family a phone call. New [place] pics attached to chart! Thanks! Question Answer Comment Reason for consult: Wound/pressure injury Instructions: Prior to sending evaluation & treat order, place wound/ostomy LDA, complete a wound/ostomy assessment, and consider taking a photograph to document. 06/02/25 1227 Wound History: Family at bedside state wound was larger but they have been treating with betadine cleansing, antibiotic ointment, and alternating keeping covered and leaving it open. Wound Assessment: Wound 05/06/25 Buttocks Right (Active) Date First Assessed/Time First Assessed: 05/06/25 1458 Location: Buttocks Wound Location Orientation: Right Assessments 06/03/2025 3:28 PM Wound Image Wound Assessment Red Margins Well-defined edges Carmen-Wound Assessment Intact Shape irregular Wound Length (cm) 2 cm Wound Width (cm) 0.5 cm Wound Surface Area (cm^2) 0.79 cm^2 Wound Depth (cm) 0.3 cm Wound Volume (cm^3) 0.157 cm^3 Drainage Description Serous Drainage Amount Scant Treatments Cleansed;Soap and Water Dressing Foam (allevyn) Dressing Changed Changed Non-staged Wound Description Full thickness Active Orders Date Order Priority Status Authorizing Provider 06/03/25 1609 Apply/Change Wound Dressing Right Buttocks Routine Active Mayra Rogers MD - Dressing Type: Foam Dressing - Dressing Type: Other Dressings - Foam Dressing: Allevyn - Other: Other (Comment) - Other dressing (comment):: RIGHT BUTTOCKS: Dress wound with Allevyn, peel back Q shift to clean and assess, change Q 3 days and PRN if soiled. If frequently incontinent remove Allevyn, instead use barrier film/spray BID and zinc ointment TID and PRN incontinence. 06/03/25 1609 Positioning Patient (Pressure injury prevention) -Float Heels off the bed all times; Reposition patient while on bed every two hours, Reposition patient in the chair at least every hour. Limit sitting to no more than 2 hours at a time. Use air cus... Routine Active Mayra Rogers MD - Float heels:: Float Heels off the bed all times - Reposition patient:: Reposition patient while on bed every two hours - Reposition patient:: Reposition patient in the chair at least every hour. Limit sitting to no more than 2 hours at a time. Use air cushion while sitting - Reposition patient:: Turn patient to 30 degress as medically appropriate Wound 05/06/25 Leg Posterior;Proximal;Right;Upper (Active) Date First Assessed/Time First Assessed: 05/06/25 1503 Location: Leg Wound Location Orientation: Posterior;Proximal;Right;Upper Assessments 06/03/2025 3:28 PM Wound Assessment Intact No associated orders. Wound Team Summary Assessment: Irregularly crescent shaped full thickness wound to right gluteal measuring 2 cm x 0.5 cm, full thickness suggestive of pressure etiology though shape and location overarea of soft tissue is unusual, etiology unclear. Recommend bordered foam dressing, TQ2. Wound Team Plan: Assessment and orders as above. Wound care will follow up at regular intervals while inpatient; bedside nursing to follow wound care recommendations as ordered and please re-consult sooner for new changes or concerns prior to follow up. Linda Stephen RN 06/03/2025 4:09 PM * Progress Notes - Jenae Jones MD - 06/03/2025 2:00 PM EDT [facility] Progress Note Patient: Mar Waldron Admit Date: 06/01/2025 Reason for Consult: ESRD Subjective Reviewed the interval events, flowsheets, labs and the notes. No acute events overnight. Patient sleepy but arousable. Denies any concerns. Objective Visit Vitals BP (!) 154/68 Pulse 56 Temp 36.7 ??C (98 ??F) Resp 15 Ht 1.702 m (5' 7 ) Wt 60.3 kg (132 lb 15 oz) SpO2 94% BMI 20.82 kg/m?? Smoking Status Every Day BSA 1.69 m?? Temp: [36.3 ??C (97.3 ??F)-36.7 ??C (98 ??F)] 36.7 ??C (98 ??F) Heart Rate: [56-73] 56 Resp: [13-16] 15 BP: (130-170)/(42-80) 154/68 No intake or output data in the 24 hours ending 06/03/25 1400 Problem List Problem List[1] Medications: Current Medications: Current Scheduled Medications[2] Current Continuous Medications[3] Physical Exam: Gen: Chronically ill-appearing, NAD HEENT: MMM, OP clear without lesions or exudate Neck: Supple CV: Warm and well perfused Pulm: Normal respiratory effort, on room air Abd: Soft, non-tender, non-distended. Ext: Trace edema Skin: No jaundice. No rashes noted on observed skin Neuro: Arousable, follows simple commands. Moving all extremities Access: LUE AVF, weak thrill proximally Laboratory: Renal Panel: Lab Results Component Value Date NA 138 06/03/2025 K 3.4 (L) 06/03/2025 CL 96 (L) 06/03/2025 CO2 23 06/03/2025 BUN 66 (H) 06/03/2025 PHOS 5.3 (H) 06/03/2025 MBD: Lab Results Component Value Date CALCIUM 8.1 (L) 06/03/2025 CAION 4.5 (L) 06/01/2025 PHOS 5.3 (H) 06/03/2025 CBC: Lab Results Component Value Date WBC 7.45 06/03/2025 RBC 2.97 (L) 06/03/2025 HGB 8.1 (L) 06/03/2025 HCT 28.7 (L) 06/03/2025 PLT 44 (L) 06/03/2025 MCV 97 06/03/2025 MCH 27.3 06/03/2025 MCHC 28.2 (L) 06/03/2025 RDW 15.8 (H) 06/03/2025 NRBC 0.4 (H) 06/03/2025 Iron studies: Lab Results Component Value Date TIBC 234 (L) 06/28/2024 Impression & Plan: Ms. Mar Waldron is a 55 y.o. woman with a hx of ESRD on HD, HTN, COPD, CAD s/p CABG/PCI/COSME, HLD, and HFpEF who was admitted to [facility] on 06/02 for concerns of thrombosed/malfunctioning fistula. Outpatient HD: - Schedule: MW - Dialysis Unit: [facility] - Outpatient Machine Tracer: Dr. Summers - Residual renal functions: Minimal - EDW: 59 kg - Access: LUE AVF Assessment and Plan: #AVF malfunction #Hypervolemia #Hypertension #Anemia in CKD #CKD-MBD #ESRD on HD #Left Inferior Pole Renal Mass - Noted on MRI from February 2025 - Will need Urology follow-up - has appt 07/05 - No urgent/emergent indication for iHD today. - Will plan for AVF angiogram with de-clot tomorrow and if unsuccessful, TDC placement (consent obtained 06/03) - Plan for iHD tomorrow following procedures - Continue home anti-hypertensives Will assess need for UMESH; Hgb currently 7.7 - Please resume home Phos binders (Renvela) when tolerating PO - Recommend low K, low P diet while inpatient - Please renally dose medications for iHD Nephrology will continue to follow for the duration of this admission. Please call or page with anyquestions. Jenae Jones MD Nephrology Fellow PGY-5 Page: [phone] [1] Patient Active Problem List Diagnosis Volume overload ESRD (end stage renal disease) ([facility]) CHF (congestive heart failure) ([facility]) Pleural effusion Acute hypoxic respiratory failure Acute pulmonary edema ([facility]) GI bleed [2] aspirin, 81 mg, Oral, Daily atorvastatin, 80 mg, Oral, Nightly doxazosin, 2 mg, Oral, Nightly escitalopram, 10 mg, Oral, Daily ezetimibe, 10 mg, Oral, Daily hydrALAZINE, 25 mg, Oral, TID levothyroxine, 88 mcg, Oral, Daily before breakfast pantoprazole, 40 mg, Intravenous, BID senna, 2 tablet, Oral, Nightly sevelamer carbonate, 800 mg, Oral, TID with meals [3] Cosigned by Tiny Summers MD at 06/04/2025 11:38 AM EDT Associated attestation - Tiny Summers MD - 06/04/2025 11:38 AM EDT I saw and evaluated the patient with the resident/fellow. I discussed the case with the resident/fellow and agree with the findings and plan as documented. * Care Plan - Alex Merino RN - 06/03/2025 1:37 PM EDT Problem: Adult Inpatient Plan of Care Goal: Plan of Care Review Outcome: Ongoing, Progressing Flowsheets (Taken 06/03/2025 0800) Progress: no change Plan of Care Reviewed With: patient Problem: Adult Inpatient Plan of Care Goal: Patient-Specific Goal (Individualized) Outcome: Ongoing, Progressing Flowsheets (Taken 06/03/2025 0800) Patient/Family-Specific Goals (Include Timeframe): pt will remain free from falls/injury today Individualized Care Needs: safety Anxieties, Fears or Concerns: n/a Problem: Adult Inpatient Plan of Care Goal: Absence of Hospital-Acquired Illness or Injury Intervention: Prevent Infection Flowsheets (Taken 06/03/2025 1336) Infection Prevention: cohorting utilized environmental surveillance performed equipment surfaces disinfected hand hygiene promoted personal protective equipment utilized rest/sleep promoted single patient room provided Problem: Skin Injury Risk Increased Goal: Skin Health and Integrity Intervention: Promote and Optimize Oral Intake Flowsheets (Taken 06/03/2025 1336) Oral Nutrition Promotion: rest periods promoted nutrition counseling provided Problem: Fall Injury Risk Goal: Absence of Fall and Fall-Related Injury Intervention: Promote Injury-Free Environment Flowsheets (Taken 06/03/2025 1336) Safety Promotion/Fall Prevention: assistive device/personal items within reach clutter-free environment maintained fall prevention program maintained lighting adjusted mobility aid in reach nonskid shoes/slippers when out of bed room organization consistent safety round/check completed Problem: Gas Exchange Impaired Goal: Optimal Gas Exchange Intervention: Optimize Oxygenation and Ventilation Flowsheets (Taken 06/03/2025 1336) Airway/Ventilation Management: oxygen therapy provided Problem: Mobility Impairment Goal: Optimal Mobility Intervention: Optimize Mobility Flowsheets (Taken 06/03/2025 1336) Positioning/Transfer Devices: pillows * Progress Notes - Sobia Jeffers RN - 06/03/2025 11:26 AM EDT Case Management Adult Initial Progress Note Mar Vanessa Chivo 55 y.o. female CSN: [id number] Admission: 06/01/2025 4:48 PM Primary Problem: Acute hypoxic respiratory failure Lockstitch Back Maker reviewed chart and spoke with sonWade to complete this Initial Case Management Assessment. Patient with confusion. Patient with PMH significant for Bradycardia, CAD, Chronic pain syndrome, COPD, Dyslipidemia, End stage renal disease, GERD, Hypertension, Hypothyroidism, and Type 2 diabetes mellitus presenting for shortness of air. Dialysis clinic unable to access fistula. PCP: Rosemarie Riley APRN Emergency Contact: Extended Emergency Contact Information Primary Emergency Contact: Briana,Wade Mobile Relation: Son Preferred language: Azeri Decorating Inspector needed? No Secondary Emergency Contact: Jeremy Perez Mobile Relation: Son Insurance: Primary Visit Coverage Payer Plan Sponsor Code Group Number Group Name [employer] MEDICARE HU[employer]NA GOLD PLUS [id number] Primary Visit Coverage Subscriber Subscriber ID Subscriber Name Subscriber N Subscriber Address [id number] Mar Waldron [id number] [place] [address] Patient information: Primary Caregiver: Family Support System: Immediate family Daily Living Activities: Functional Status: Moderate assistance Living Arrangements: Family Type of Residence: Private residence [address] [place] [address] Smoker in the Home?: N/A Current DME: Equipment Currently Used at Home: walker, rollator, wheelchair, manual, shower chair Income Information: Income Source: Unemployed Housing Circumstances-Z Codes: Housing Circumstances (select all that apply): Low Income (101-300% Federal Poverty Guidlines) - Z596 Patient Referred to: Anticipated Discharge Date: TBD Patient's Discharge Goal: Patient/Family Anticipates Transition to: home with family, inpatient rehabilitation facility Assistance Available at Discharge: Current Outpatient/Agency/Support Group: outpatient hemodialysis Availability of Care Givers (#Hours): 24 hours Discharge Transport: Transportation Anticipated: family or friend will provide Follow Up Transport: Transportation Needed to Follow up Appoinments: Family/Friend will Provide Home Health / Home Infusion / Outpatient Dialysis Services: [facility] Living Will/Advance Directive/Power of Director Television /Guardian: Additional Comments: Patient with some confusion. CM talked with sonWade to obtain initial assessment. He states patient was living in [place] until a month ago and he moved her in with him as he and his brother can provide 24 hour assistance at home. He states he has a rollator, wheelchair and shower chair at home. Not current with home health at this time. CM dicussed KELLY recommendations, Wade states he wantsto talk with his brother regarding KELLY vs returning home. CM will continue to follow. Sobia Jeffers RN * Progress Notes - Flako Rai MD - 06/03/2025 7:36 AM EDT Images from the original note were not included. Hospital Medicine Progress Note Subjective Subjective No acute events overnight. More conversational this morning. No chest pain, difficulty breathing, belly pain. Additional History was obtained from nurse. No stool overnight or on his shift. Objective Objective Last Recorded Vitals Blood pressure (!) 130/42, pulse 57, temperature 36.5 ??C (97.7 ??F), temperature source Oral, resp. rate 16, height 1.702 m (5' 7 ), weight 60.3 kg (132 lb 15 oz), SpO2 94%. Physical Exam Vitals and nursing note reviewed. Constitutional: General: She is awake. HENT: Head: Atraumatic. Eyes: General: No scleral icterus. Cardiovascular: Rate and Rhythm: Regular rhythm. Bradycardia present. Heart sounds: Normal heart sounds. Pulmonary: Effort: Pulmonary effort is normal. Breath sounds: No wheezing. Abdominal: Palpations: Abdomen is soft. Tenderness: There is no abdominal tenderness. There is no guarding. Musculoskeletal: General: No tenderness. Right lower leg: No edema. Left lower leg: No edema. Skin: General: Skin is warm and dry. Findings: Bruising (Two bruises noted on the left posterior inferior aspect of shoulder) present. Neurological: General: No focal deficit present. Mental Status: She is alert. Psychiatric: Mood and Affect: Mood normal. Data Reviewed the following Notes: PT/OT: Subacute rehab recommendations Labs personally reviewed: CBC: Anemia stable; thrombocytopenia stable CMP: Potassium stable, creatinine increasing to 4.3, anion gap stable, alk phos stable, phosphorus increased to 5.3 Blood cultures: No growth to date Imaging None Assessment/Plan Assessment & Plan Principal Problem: Acute hypoxic respiratory failure Active Problems: ESRD (end stage renal disease) ([facility]) CHF (congestive heart failure) ([facility]) Pleural effusion Acute pulmonary edema ([facility]) GI bleed Mar Waldron is a 55 y.o. female admitted for acute hypoxic respiratory failure This condition poses an acute threat to life/bodily function. 06/03/25: Patient remains comfortable and stable on 2 L nasal cannula in setting of acute hypoxic respiratory failure. This is likely secondary to hypovolemia in the setting of a missed dialysis. Patient's fistula will be evaluated by Interventional Nephrology on Tuesday06/04/2025, with plans for hemodialysis some time following per Nephrology. Patient remains alert and oriented times 4 with oddaffect at times; appears to be more subacute mental status changes. TSH high with a low T4, increased levothyroxine yesterday. May consider further evaluation and workup for depression outpatient. Very low concern for GI bleed, but risks benefit of initiation of Protonix weighs in favor of treating. Normal bowel movement while in ER. We will continue to monitor H and H; hemodynamically stable even hypertensive. #Acute hypoxic respiratory failure likely due to volume overload causing Pleural effusion likely due to missed dialysis and being anuric - Subjectively dyspneic; O2 saturation appropriate on 2L NC - Chart review shows history COPD though no PFTs available; history of pleural effusion, 06/2024 thoracentesis with lights criteria being transudative - Respiratory panel negative; labs insignificant for infectious process; remains afebrile with noninfectious clinical presentation PLAN - Plan for HD per nephrology - We will re-evaluate following HD, will consider CT of chest to further evaluate presence of pleural effusion #Concern for Thrombosed LUE Fistula - HD clinic had difficulty accessing fistula on 05/31/2025; positive thrill on physical exam - U/S demonstrates that the radiocephalic AV fistula is patent but flows are below normal limits with hemodynamically significant stenosis PLAN - Plan for LUE AVF angiography w/ possibly angioplasty Monday 06/04 with Interventional Nephrology #ESRD on iHD with associated hyperphosphatemia, AGMA, and hypervolemia due to missed dialysis #Anion Gap - No established iHD schedule, last was 05/29 - Follows with Dr Summers in [place] - Dry weight 59kg, has AVF PLAN - Start Renvela 800 mg 3 times a day with meals - Hold other scheduled dialysis medications at this time - Nephrology consulted - No urgent indications for HD, can begin pending access #Acute Encephalopathy - improved/resolved - vs Subacute given history. Family describes progressive cognitive decline over course of years but with worsening over past few weeks since taking over care. - Alert to voice, speaks in short phrases, answers orientation questions, expresses opinions, drowsy - Metabolic- BG wnl; evelated TSH with T4 0.06 (consistent with previous lab 1mo ago) - Toxic- Lots of NyQuil in past, but no recent use per sons PLAN - Follow-up blood cultures - increase levothyroxine to 88 mcg daily - If patient becomes more obtunded, low threshold to obtain head imaging - Continue home Lexapro; continue evaluate for depression outpatient given major life changes over the past several weeks, consider titrating as necessary #Anemia with report of black stools on Chronic anemia and thrombocytopenia - Black chalky stools reported by sons; no melena no hematochezia; chronic anemia; hemodynamically stable - Formed, brown stools reported by nursing staff - Low concern for GI bleed at this time; both anemia and thrombocytopenia better explained by ESRD PLAN - Protonix 40 mg IV twice daily - H/H q8h #CAD - Hx of ME with COSME to mLAD, distant - Home medications include Plavis & ASA 325 PLAN - Continue ASA 81 in setting of prior stenting - Hold home clopidogrel; discontinue aspirin 325 mg daily at discharge #Renal Mass concerning for RCC - Left renal mass concerning for renal cell carcinoma - Previous ultrasound and MRI PLAN - Have initial oncology visits scheduled #Acute on chronic CHF (HFpEF) - TTE evaluation limited given patient asking to stop - Volume overload better explained by ESRD w/o HD - ProBNP greater than 70K PLAN - Continue to monitor - Establish cardiology follow-up outpatient #Asymptomatic Sinus Bradycardia - Hemodynamically stable - History of hypothyroidism, takes carvedilol 25 mg daily twice daily PLAN - Follow-up TSH with T4 reflex - Hold home carvedilol #Severe Protein-Calorie Malnutrition - High Risk for Refeeding - Art Installer consult #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, Malnutrition, & Inability to Perform ADLs - PT/OT Consult #Stage 3 Pressure Ulcer - Wound consult Chronic Medical Conditions #HTN: Coreg 25 BID, Hydral 50 q6h Not ordered #HLD: Continue atorvastatin, Ezetimibe #Chronic Pain: Home reg is oxy 10/ APAP 300mg; oxycodone 5 mg by mouth every 6 hours as needed for severe pain #Left Eye Blindness #Hx of Stroke Syndrome; unclear history?: weakness in all 4 extremities without focal deficit, PT/OT Care today included: HIGHRISK: Discussion of management/test with another provider: Discussed care plan with Nephrology,we will start phosphate binders today. Electronically Signed by: Flako Rai MD - 06/03/2025 - 11:40 AM Cosigned by Mayra Rogers MD at 06/03/2025 8:51 PM EDT Associated attestation - Mayra Rogers MD - 06/03/2025 8:51 PM EDT I saw and evaluated the patient with the resident/fellow. I discussed the case with the resident/fellow and agree with the findings and plan as documented. MEDICAL DECISION MAKING: Data: - Additional history was obtained from nurse who noted she was doing well today - Reviewed the following notes: wound care recommended foam dressing - Reviewed labs which are significant for: stable anemia, rising creatinine, low K, normal AST/ALT/T bili - We ordered CBC and BMP in AM for monitoring WBC, Hgb, creatinine/K - My independent interpretation of telemetry demonstrates NSR with PVCs - We discussed the plan with nephrology who plans for procedure tomorrow to fix her graft or place a TDC to allow for dialysis Complexity of problems: - Current condition is not at goal, severity is severe as acute hypoxic respiratory failure is a severe threat to life and bodily function Mayra Rogers MD * Care Plan - Nicolette Quintero RN - 06/03/2025 1:51 AM EDT Problem: Adult Inpatient Plan of Care Goal: Patient-Specific Goal (Individualized) Outcome: Ongoing, Progressing Flowsheets (Taken 06/03/2025 0150) Patient/Family-Specific Goals (Include Timeframe): pt will reain safe within the shift Individualized Care Needs: safety Anxieties, Fears or Concerns: none stated Note: Ensure all safety measures are in place to promote safety within the shift Problem: Gas Exchange Impaired Goal: Optimal Gas Exchange Outcome: Ongoing, Progressing Intervention: Optimize Oxygenation and Ventilation Flowsheets (Taken 06/03/2025 0151) Airway/Ventilation Management: airway patency maintained oxygen therapy provided Head of Bed (HOB) Positioning: HOB at 30 degrees Problem: Mobility Impairment Goal: Optimal Mobility Outcome: Ongoing, Progressing Intervention: Optimize Mobility Flowsheets (Taken 06/03/2025 0152) Activity Management: bedrest Positioning/Transfer Devices: pillows repositioning sheet * Hospital Course - Mayra Rogers MD - 06/02/2025 2:27 PM EDT Mar Waldron is a 55-year-old female appearing much older than stated age with past medical historyof and uric end-stage renal disease on intermittent hemodialysis (MWF at [facility]), undifferentiated renal mass, hypertension, reported COPD, coronary artery disease status post CABG/PCI/COSME 15 years ago, hyperlipidemia, hypothyroidism, reported type 2 diabetes mellitus, vitreous hemorrhage left eye with end-stage neovascular glaucoma who was admitted for acute hypoxic respiratory failure dueto volume overload clot causing pleural effusion due to missed dialysis. Ms. Redd had missed dialysis due to partially thrombosed left upper extremity fistula requiring angiogram with declot, with s ubsequent inpatient dialysis. Acute hypoxic respiratory failure resolved with dialysis. Of additional note, patient is poor historian medical history since 2019 is not well understood by family. Approximately 1 year prior patient was reportedly in good health, sons recall her line dancing with her grandchildren. Patient has had significant decline over the past year, requiring significant assistance with ADLs. On the day of discharge, referrals were previously sent to subacute rehab facility by case management. Messaged that patient did not wish to go to rehab anymore and would rather discharge home. Internal medicine team had extensive discussion with patient and family explaining our recommendation forsubacute rehab for high-fall risk and assistance with ADLs. Patient expressed her understanding of risks with discharging home and confirmed she wanted to. Family report arranging home health with her PCP and would help her at home. #Acute hypoxic respiratory failure likely due to volume overload causing Pleural effusion likely due to missed dialysis and being anuric - Chart review shows history COPD though no PFTs available; CT abdomen and pelvis from 12/2024 shows emphysematous changes in bilateral lung bases; history of pleural effusion, 06/2024 thoracentesis with lights criteria being transudative - Respiratory panel negative; labs insignificant for infectious process; remains afebrile with noninfectious clinical presentation - Tuesday dialysis schedule while admitted. Resume normal dialysis schedule at discharge - Ambulatory pulmonology referral placed, they will reach out to schedule #ESRD on iHD with associated hyperphosphatemia, AGMA, and hypervolemia due to missed dialysis - Dialysis chair at [facility] on a MWF schedule - Dry weight 59kg, has AVF - Continue Renvela 800 mg 3 times a day with meals - Resume regular Tuesday schedule and other scheduled dialysis medications #Chronic anemia and thrombocytopenia, present on admission - Anemia and thrombocytopenia better explained by ESRD - Hemoglobin has remained stable during admission - No signs or symptoms of bleeding on day of discharge - Further workup and management per PCP #CAD w/ prior ME with COSME to mLAD with prior stenting - Prescribed Plavix and aspirin 325, patient and family unsure why this dose was chosen or why she remains on Plavix with most recent stent being over 10 years ago - Continue aspirin 81 mg daily at discharge, stopped taking clopidogrel - Ambulatory referral to cardiology placed they will reach out to schedule #Acute on chronic CHF (HFpEF) - TTE evaluation limited given patient's ability to tolerate exam - Volume overload better explained by ESRD w/o HD - ProBNP greater than 70K - Ambulatory referral to cardiology placed they will reach out to schedule #Renal Mass concerning for RCC - stable - Left renal mass concerning for renal cell carcinoma, seen on previous ultrasound and MRI - Have initial oncology visits scheduled per patient and family #Severe Protein-Calorie Malnutrition - High Risk for Refeeding, electrolytes monitored daily while admitted - Management per PCP #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, Malnutrition, & Inability to Perform ADLs - PT/OT recommended subacute rehab - Patient refuses and wishes to discharge home and will arrange home health with PCP. She voiced understanding of risks of going home and proceeded with her decision #Concern for Thrombosed LUE Fistula -Resolved - HD clinic had difficulty accessing fistula on 05/31/2025; positive thrill on physical exam - U/S demonstrates that the radiocephalic AV fistula is patent but flows are below normal limits with hemodynamically significant stenosis - Successful angiogram with declot on 06/04/2025; dialysis followed same day #Acute Encephalopathy - resolved - vs Subacute given history. Family describes progressive cognitive decline over course of years but with worsening over past few weeks since taking over care. - Alert to voice, speaks in short phrases, answers orientation questions, expresses opinions, drowsy - Levothyroxine increased to 88 mcg daily - Resume home Lexapro at discharge #Concern for GI Bleed - Resolved - Black chalky stools reported by sons; no melena no hematochezia; chronic anemia; hemodynamically stable - Started on IV Protonix twice daily; hemoglobin remained stable and remained hemodynamically stable, brown soft stools while inpatient - Discharged on by mouth PPI twice daily - Due for colonoscopy; PCP to follow up #Asymptomatic Sinus Bradycardia - resolved - Briefly occurred during admission, was hemodynamically stable - HR remained above 60 for several days leading up to admission - Decrease home carvedilol dose to 12.5 mg twice daily - Cardiology and PCP management Chronic Medical Conditions #HTN: Decreased Carvedilol to 12.5 twice daily, increased hydralazine to 75 mg three times a day HLD: Continue atorvastatin and ezetimibe Chronic pain: Discharge with 7 days of [place] due to missing pain clinic appointment while admitted,directed patient to reschedule as soon as possible History of neovascular glaucoma, vitreous hemorrhage: Ambulatory Ophthalmology referral History of stroke symptoms: Denies CVA history, chronic weakness in all 4 extremities per family. PT/OT evaluated and recommended subacute rehab patient refused and wishes to DC home * H&P - Flako Rai MD - 06/02/2025 1:49 PM EDT Images from the original note were not included. Hospital Medicine History & Physical Subjective 06/01/2025 Chief Complaint: Chief Complaint Patient presents with Fistula problem History Of Present Illness Mar Waldron is a 55 y.o. female with a PMH of anuric end-stage renal disease on intermittent hemodialysis (last 3-4 years), hypertension, COPD, coronary artery disease status post CABG/PCI/COSME 15-20 years ago, HLD, hypothyroidism, type 2 diabetes mellitus, vitreous hemorrhage left eye with end stage neovascular glaucoma who presented with concern for thrombosed fistula. Ms. Redd is a poor historian. Limited collateral history obtained by sons who are present at bedside. Per family, patient has had significant decline in her health since last summer. Son state thatat that time she was able to ambulate independently, conversational, otherwise independent in all activities of daily living. Ms. Waldron has been living in [place] with her previous significant other; her son's moved her to [place] within the last 3-4 weeks due to concerns of her overall well-being and health: Weight loss, missing dialysis, pressure ulcers. Ms. Waldron is almost completely dependent for ADLs in her current state. She is actively being worked up for a solid-appearing lesion in the left kidney concerning for renal cell carcinoma. Has had ongoing gluteal wound that family has been treating. At time of this hospitalization, Ms. Redd does have some dyspnea with new oxygen requirement. Herdyspnea started on Tuesday after her missed dialysis appointment due to inability to access fistula.Son had reported that patient had a fall in the shower and hit her head this past week, however shewas taken to an outside ED and reportedly had negative CT head. On review of systems, son state that she has had some dark, almost black, chalky stools. Sons describe frequent cold extremities with her hands becoming white. They also share some concern altered mentation, no acute change management administrator past several days. Denies fever, chills, chest pain, cough, sputum, hematochezia, melena, carpal tunnel sym ptoms, headache. Social history positive for 40 year smoking history, denies alcohol use, denies illicit drug use aside from marijuana. Past Medical History Past Medical History[1] Surgical History Surgical History[2] I have reviewed this patient's past surgical history Family History Family History[3] Social History Social History[4] Smoked 1 packs per day for 40 years Travel History Travel Screening Question Response Have you been in contact with someone who was sick? No / Unsure Do you have any of the following new or worsening symptoms? None of these Have you traveled internationally or domestically in the last month? Yes Travel History Travel since 05/02/25 Location Start Date End Date [place] ([facility]) 04/05/25 (defaulted) 05/06/25 (defaulted) Immunizations Immunization History Administered Date(s) Administered Influenza, Unspecified 10/30/2010 Allergies Basaglar kwikpen [insulin glargine] and Lisinopril Home Medications Current Outpatient Medications Medication Instructions albuterol 108 (90 Base) MCG/ACT inhaler 2 puffs, Inhalation, Every 6 hours PRN atorvastatin (LIPITOR) 80 mg, Oral, Nightly carvedilol (COREG) 25 mg, Oral, 2 times daily with meals cloNIDine (Catapres) 0.1 MG tablet 1 tablet, Oral, 2 times daily PRN, If systolic blood pressure isgreater than 180 clopidogrel (PLAVIX) 75 mg, Oral, Daily doxazosin (CARDURA) 2 mg, Oral, Nightly ergocalciferol (VITAMIN D-2) 50,000 Units, Oral, Every 14 days ezetimibe (ZETIA) 10 mg, Oral, Daily hydrALAZINE (APRESOLINE) 100 mg, Oral, 3 times daily isosorbide mononitrate ER (IMDUR) 120 mg, Oral, Every morning, Do not crush or chew. lactulose (Chronulac) 10 GM/15ML solution 15 mL, Oral, Daily PRN levothyroxine (SYNTHROID, LEVOXYL) 75 mcg, Oral, Daily before breakfast NIFEdipine XL (PROCARDIA XL) 90 mg, Oral, Daily, Do not crush, chew, or split. oxyCODONE-acetaminophen (Percocet) 10-325 MG tablet 1 tablet, Oral, Every 6 hours PRN pantoprazole (PROTONIX) 20 mg, Oral, Daily before breakfast, Do not crush, chew, or split. topiramate (TOPAMAX) 25 mg, Oral, Nightly valsartan (DIOVAN) 80 mg, Oral, 2 times daily Review of Systems ROS negative unless otherwise stated in HPI. Objective Last Recorded Vitals Blood pressure (!) 157/59, pulse 58, temperature 36.4 ??C (97.6 ??F), temperature source Oral, resp. rate 20, height 1.702 m (5' 7 ), weight 60.8 kg (134 lb), SpO2 96%. Physical Exam Vitals and nursing note reviewed. Constitutional: General: She is awake. Appearance: She is ill-appearing. Comments: Malodorous, muscle atrophy, minimally interactive during the encounter HENT: Head: Atraumatic. Mouth/Throat: Mouth: Mucous membranes are moist. Dentition: Abnormal dentition. Dental tenderness present. Pharynx: No oropharyngeal exudate. Eyes: Pupils: Pupils are unequal. Left eye: Pupil is not round and not reactive. Cardiovascular: Rate and Rhythm: Regular rhythm. Bradycardia present. Pulses: Dorsalis pedis pulses are 1+ on the right side and 1+ on the left side. Heart sounds: Normal heart sounds. No murmur heard. Arteriovenous access: Left arteriovenous access is present. Comments: Left upper extremity AV fistula with positive thrill Pulmonary: Effort: Pulmonary effort is normal. Breath sounds: Normal breath sounds. No wheezing or rhonchi. Comments: Exam limited to anterior breath sounds only Abdominal: General: Abdomen is flat. Tenderness: There is abdominal tenderness in the right upper quadrant, epigastric area and left upper quadrant. Musculoskeletal: Right lower leg: No edema. Left lower leg: No edema. Comments: Muscle atrophy Skin: General: Skin is warm and dry. Coloration: Skin is pale. Findings: Wound present. No petechiae or rash. Comments: See gluteal wound in media tab Neurological: General: No focal deficit present. Data Labs in last 18 hours CBC WBC 6.73 Hb 7.7 (L) Plt ?? Hct 27.9 (L) ANC 5.62 INR ??, PTT ??, Anti-Xa ?? BMP Na 136 Cl 96 (L) BUN 61 (H) Glu 132 (H) K 3.6 Co2 22 Cr 3.90 (H) Ca 8.1 (L) iCa ?? Mg 2.3, Phos 4.8 (H) Lactate ?? LFT AST 20 AlkPhos 194 (H) T Prot 6.0 (L) ALK <5 (L) Bili 0.3 Alb ?? D.Bili ?? IMAGING (past 24h): Personally reviewed and interpreted chest x-ray, opacification right greater than left with likely right pleural effusion. Assessment/Plan Assessment/ Plan Principal Problem: GI bleed Active Problems: ESRD (end stage renal disease) (CMS/HCC) CHF (congestive heart failure) ([facility]) Pleural effusion Acute hypoxic respiratory failure Acute pulmonary edema ([facility]) Mar Waldron is a 55 y.o. female with PMH as per above who presents with acute hypoxic respiratory failure. #Acute hypoxic respiratory failure likely due to volume overload causing Pleural effusion likely due to missed dialysis and being anuric - Subjectively dyspneic; O2 saturation appropriate on 2L NC - Chart review shows history COPD though no PFTs available; history of pleural effusion, 06/2024 thoracentesis with lights criteria being transudative - Respiratory panel negative; labs insignificant for infectious process PLAN - Plan for HD per nephrology - We will re-evaluate following HD, will consider CT of chest to further evaluate presence of pleural effusion #Concern for Thrombosed LUE Fistula - HD clinic had difficulty accessing fistula on 05/31/2025; positive thrill on physical exam - U/S demonstrates that the radiocephalic AV fistula is patent but flows are below normal limits with hemodynamically significant stenosis PLAN - Plan for LUE AVF angiography w/ possibly angioplasty Monday 06/04 with Interventional Nephrology #ESRD on iHD with associated hyperphosphatemia, Anion Gap, and hypervolemia due to missed dialysis - No established iHD schedule, last was 05/29 - Follows with Dr Summers in [place] - Dry weight 59kg, has AVF PLAN - Nephrology consulted - No urgent indications for HD, can begin pending access #Acute Encephalopathy - vs Subacute given history. Family describes progressive cognitive decline over course of years but with worsening over past few weeks since taking over care. - Alert to voice, speaks in short phrases, answers orientation questions, expresses opinions, drowsy - Metabolic- BG wnl; evelated TSH with T4 0.06 (consistent with previous lab 1mo ago) - Toxic- Lots of NyQuil in past, but no recent use per sons PLAN - Follow-up blood cultures - increase levothyroxine to 88 mcg daily - If patient becomes more obtunded, low threshold to obtain head imaging #Anemia with report of black stools on Chronic anemia and thrombocytopenia - Black chalky stools reported by sons; no melena no hematochezia; chronic anemia; hemodynamically stable - Formed, brown stools reported by nursing staff - Low concern for GI bleed at this time; both anemia and thrombocytopenia better explained by ESRD PLAN - Protonix 40 mg IV twice daily - H/H q8h #CAD - Hx of ME with COSME to mLAD, distant - Home medications include Plavis & ASA 325 PLAN - Continue ASA 81 in setting of prior stenting - Hold home clopidogrel; discontinue aspirin 325 mg daily at discharge #Renal Mass concerning for RCC - Left renal mass concerning for renal cell carcinoma - Previous ultrasound and MRI PLAN - Have initial oncology visits scheduled #Acute on chronic CHF (HFpEF) - TTE evaluation limited given patient asking to stop - Volume overload better explained by ESRD w/o HD - ProBNP greater than 70K - Does not make urine so cannot diurese PLAN - Continue to monitor - Establish cardiology follow-up outpatient #Asymptomatic Sinus Bradycardia - Hemodynamically stable - History of hypothyroidism, takes carvedilol 25 mg daily twice daily PLAN - Follow-up TSH with T4 reflex - Hold home carvedilol #Severe Protein-Calorie Malnutrition - High Risk for Refeeding - Art Installer consult #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, Malnutrition, & Inability to Perform ADLs - PT/OT Consult #Stage 3 Pressure Ulcer - Wound consult #Hypoalbuminemia - Likely due to chronic disease - Complicates care Chronic Medical Conditions #HTN: Coreg 25 BID, Hydral 50 q6h Not ordered #HLD: Continue atorvastatin, Ezetimibe #Chronic Pain: Home reg is oxy 10/ APAP 300mg; oxycodone 5 mg by mouth every 6 hours as needed for severe pain #Left Eye Blindness #Hx of Stroke Syndrome; unclear history?: weakness in all 4 extremities without focal deficit, PT/OT Fluids: PO DVT Ppx: SCDs, platelets 46 at time of admission Diet: Dietary Orders (From admission, onward) Start Ordered 06/01/252145 Adult diet Diet texture: Regular; Electrolyte Restriction: Renal (Adult Diet Panel) Diet effective now References: IDDSI Diet Texture Guide Question Answer Comment Diet texture Regular Electrolyte Restriction: Renal 06/01/252147 Code status: DNR/DNI Dispo: Admit to Telemetry Flako Rai MD PGY-1 Electronically Signed by: Flako Rai MD - 06/02/2025 - 1:50 PM [1] Past Medical History: Diagnosis Date Arthritis CHF (congestive heart failure) (CMS/HCC) Chronic renal failure Coronary artery disease Diabetes mellitus (CMS/HCC) HTN (hypertension) Hypothyroidism Renal cancer (CMS/HCC) [2] Past Surgical History: Procedure Laterality Date APPENDECTOMY SECTION, LOW TRANSVERSE CHOLECYSTECTOMY CORONARY ARTERY BYPASS GRAFT Bilateral HYSTERECTOMY TONSILLECTOMY [3] Family History Problem Relation Name Age of Onset Diabetes Mother Diabetes Father Hypertension Mother Hypertension Father Other cancer Mother Other cancer Father Hyperlipidemia Mother Hyperlipidemia Father [4] Social History Tobacco Use Smoking status: Every Day Substance Use Topics Alcohol use: No Cosigned by Mayra Rogers MD at 06/03/2025 5:10 PM EDT Associated attestation - Mayra Rogers MD - 06/03/2025 5:10 PM EDT I saw and evaluated the patient with the resident/fellow. I discussed the case with the resident/fellow and agree with the findings and plan as documented. MEDICAL DECISION MAKING: Data: - Additional history was obtained from sons who note her worsening functional status - Reviewed the following notes: Discharge summary from 02/24 at rehab for worsening functional statusafter admission for diarrhea, worsening renal function and anemia. She was grossly overloaded at this time. Noted to have a kidney mass and adrenal nodule - Reviewed labs which are significant for: anemia, thrombocytopenia, normal K, elevated BUN/creatinine (on HD at baseline), low albumin, elevated phos, elevates TSH, low T4, RVP negative - We ordered CBC and BMP in AM for monitoring WBC, hgb, plt, creatinine/K - My independent interpretation of CXR demonstrates vascular congestion and right-sided effusion - My independent interpretation of EKG demonstrates NSR that is low voltage - We discussed the plan with ED provider and agree she needs to be admitted - We discussed the plan with nephrology and no plans for HD tonight. Will need graft addressed before HD Complexity of problems: - Current condition is not at goal, severity is severe as acute hypoxic respiratory failure and inability to tolerate HD are both severe threats to life and bodily function Risk: - High risk decision to admit to the hospital Mayra Rogers MD * Progress Notes - Beltran Hemal E - 06/02/2025 9:39 AM EDT Physical Therapy Evaluation Patient Name: Mar Waldron Today's Date: 06/02/2025 PT Discharge Recommendations: Subacute rehab Equipment Recommended: Defer to facility History Mar Waldrno is 55 y.o. female admitted 06/01/2025 for work-up of No Principal Problem: There is no principal problem currently on the Problem List. Please update the Problem List and refresh.. Problem List Active Hospital Problems Diagnosis Date Noted CHF (congestive heart failure) ([facility]) 06/02/2025 Pleural effusion 06/02/2025 Acute hypoxic respiratory failure 06/02/2025 ESRD (end stage renal disease) ([facility]) 06/22/2024 Procedures Past Medical History Patient has a past medical history of Arthritis, CHF (congestive heart failure) ([facility]), Chronic renal failure, Coronary artery disease, Diabetes mellitus ([facility]), HTN (hypertension), Hypothyroidism, and Renal cancer ([facility]). Past Surgical History Patient has a past surgical history that includes Tonsillectomy; Appendectomy; Cholecystectomy; Hysterectomy; section, low transverse; and Coronary artery bypass graft (Bilateral). Precautions Medical Precautions: Fall precautions Subjective Patient agreeable to PT evaluation. Participants in Care Family/Caregiver Present: No Decorating Inspector: Not Applicable Presentation Oxygen Therapy: Supplemental oxygen O2 Delivery Method: Nasal cannula O2 Flow Rate (L/min): 2 L/min Lines and Tubes: Intravenous access, Telemetry Hemodialysis Arteriovenous Fistula Left Forearm (Active) Peripheral IV 06/01/25 Right Antecubital (Active) Pre-Session: Supine, Head of bed elevated, Lines intact, Bed alarm Pre-Session Comments: RN agreeable to evaluation Post-Session: Supine, Head of bed elevated, Bed alarm (zone 1, 2, 3), Lines intact, RN notified, Call light in reach Post-Session Comments: All needs met, positioned to comfort and pressure relief, transport waiting for patient Home Living/Set-up Lives With: Adult, Son (DIL) Home Type: House Home Adaptive Equipment: Wheelchair-manual, Rolling walker, Bedside commode Home Layout: Multi-level, Able to live on one level with bedroom/bathroom (reports no stairs to negotiate.) Bathroom: Tub/Shower: Walk-in shower Home Living Comments: Patient is unreliable historian to provide accurate PLOF, family not present in room at time of evaluation Prior Level of Function Receives Help From: Son (Dtr in law assist with self care.) Level of Mobility: Wheelchair/Scooter (Does not go out except for doctor appointments) Mobility [place]: Assist with wheelchair propulsion History of Falls: Yes ADL Performance: Needs assistance Bathing: Needs assist Upper Body Dressing: Needs assist Lower Body Dressing: Needs assist Grooming: Needs assist Toileting: Needs assist Eating: Needs assist Home Management Skills: Needs assist Patient/Family Goals Patient unable to state goals 2/2 impaired cognition. Objective Pain Patient endorsed generalized pain, did not specify location or numerically rate severity. RN notified. Patient currently being managed pharmacologically and positioned to comfort at session conclusion. Delirium Screening RASS: Alert and calm Confusion Assessment Method-ICU (CAM-ICU/PCAM-ICU) Feature 3: Altered Level of Consciousness: Negative Cognition Overall Cognitive Status: Impaired Arousal/Alertness: Appropriate responses to stimuli Mood/Behavior: Alert Orientation Level: Oriented X4 Single Step Commands: With increased time, With repetition Multi-Step Commands: Unable to follow commands Method of Communication: Verbal (hard of hearing) Vision - Basic Assessment Baseline Vision: Glasses distance, Glasses reading Patient Visual Report: Blind in left eye Right Upper Extremity Examination RUE Assessment: Within Functional Limits Manual Muscle Testing - RUE: (Grossly 3+/5) Sensation Light Touch: Right Upper Extremity: Intact Left Upper Extremity Examination LUE ROM Assessment LUE Assessment: Within Functional Limits Manual Muscle Testing - LUE Manual Muscle Testing - LUE: (Grossly 3+/5) Sensation Light Touch: Left Upper Extremity: Intact Right Lower Extremity Examination RLE ROM Assessment RLE Assessment: Within Functional Limits (AAROM) Manual Muscle Testing - RLE Manual Muscle Testing - RLE: (grossly 2-/5) Sensation Light Touch: Right Lower Extremity: Mild impairment Left Lower Extremity Examination LLE Assessment: Within Functional Limits (AAROM) Manual Muscle Testing: (grossly 2-/5) Sensation Light Touch: Left Lower Extremity: Mild impairment Bed Mobility Bed Mobility Interventions: PT provided mod tactile cues to LE's and trunk to facilitate rolling for dependent carmen-care followed by supine to sit transfer with verbal cues for contralateral reaching with UE to therapist hand for leverage and to promote weight shifting and balance. Patient achieved ~75% upright into sitting with assistance then refused and returned to side lying position. Assistance with b/l LE and trunk toreturn to supine. Bed Mobility Exam: Rolling/Turning Level of [place]: Contact guard (bilaterally) Physical/Nonphysical Assist: Verbal Cues, Minimal cues Assistive Device: Bed rails Bed Mobility Exam: Scooting/Bridging Level of [place]: Dependent (scooting to HOB in supine) Physical/Nonphysical Assist: Verbal Cues, Minimal cues, Additional assist utilized for safety Assistive Device: Other (drawsheet) Bed Mobility Exam: Supine to Sit Level of [place]: Moderate assist (50% patient's effort) (pt achieved ~75% to sitting upright EOB then refused further assistance and returned side lying) Physical/Nonphysical Assist: Set-up required, Verbal Cues, Moderate cues, HOB elevated, Additional assist utilized for safety Transfers Transfer Interventions: Patient currently unable to perform transfers, endorsed not being able to stand at baseline and needing assistance to transfer to wheelchair. Ambulation Ambulation Comments: Patient unable to ambulate at baseline. Balance Balance Interventions: Unable to assess this date. Therapeutic Activity (11 minutes) Please refer to bed mobility for intervention details. Patient required verbal cueing and physical assist (hand and feet placement) for set-up, initiation, facilitation, sequencing, and overall execution of instructed tasks. Therapeutic activity was centered on functional task training in order to promote functional strengthening, maximize activity tolerance, improve ventilation, enhance safety awareness, and reduce sedentary behaviors. Skilled monitoring of vitals performed throughout positional changes and aerobic activity to ensure patient safety and comfort- VSS on 2L NC. Standardized Assessments Standardized Assessments Standardized Assessments: [facility] 6-Clicks Mobility Assessment [facility] 6-Clicks Mobility Assessment Difficulty patient has turning over in bed (including adjusting bedclothes, sheets, and blankets)?:A little Difficulty patient has sitting down on and standing up from a chair with arms (wheelchair, bedside commode, etc.)?: Unable Difficulty patient has moving from lying on back to sitting on the side of the bed?: A lot How much help does the patient need moving to and from a bed to a chair (including a wheelchair)?: Unable How much help does the patient need to walk in hospital room?: Unable How much help does the patient need climbing 3-5 steps with a railing?: Unable [facility] 6-Clicks Mobility Assessment Total : 9 Assessment Patient demonstrated fair effort and toleration to bed level PT evaluation. Patient most limited due to impaired cognition, pain, and decreased functional endurance/strength. Patient only able to perform bed mobility tasks with assistance. Patient currently unable to safely transfer to wheelchair or navigate environment in wheelchair independently and poses as fall risk. VSS throughout without acute adverse effects noted. Given the patient's current functional status, ongoing care needs, and prior level of independence,discharge to a subacute rehabilitation facility is medically appropriate and strongly recommended. This level of care is necessary to provide the intensity, frequency, and duration of skilled therapyservices required to address the patient???s deficits in mobility, safety, and self-care. The patient???s condition cannot be managed effectively or safely in a lower level of care without risking complications or hospital readmission. Patient may continue to reap benefits from receiving skilled inpatient physical therapy while admitted to address amalgamation of impairments in aims to decrease patient's participation restrictions and activity limitations, increase safety awareness, decrease fall risk, and maximize independence. Impairments: Decreased endurance, ventilation, and/or gas exchange, Impaired locomotion, Impaired motor planning, Impaired vision/visual processing, Impaired functional mobility/transfers, Impaired attention/alertness, Impaired cognition/safety awareness, Impaired balance, Decreased strength, Pain,Impaired hearing/auditory processing, Impaired executive functioning, Impaired postural/trunk control, Impaired gait dynamics/performance, Impaired motor cordination/control, Impaired sensation/sensory processing Activity Limitations: Inability to sit independently, Inability to ambulate independently, Inability to ambulate community distances, Inability to transfer independently, Inability to ambulate household distances, Inability to complete ADLs independently, Impaired attention/alertness Participation Restrictions: Self-care, Home management, Community leisure Activity Tolerance: Tolerates 10 - 20 min activity with multiple rests Evaluation/Treatment Tolerance: Patient limited by fatigue, Patient limited by pain Diagnosis: impaired functional mobility Rehab Potential: Good, to achieve stated therapy goals Barriers to Discharge: Comorbidities, Ability to acquire knowledge Eval Complexity History Profile: 3 or more personal factors and/or comorbidities Clinical Presentation: Evolving clinical presentation with changing characteristics Clinical Decision Making: High complexity PT Recommendations Discharge Destination: Subacute rehab Discharge Equipment: Defer to facility Plan Planned PT Interventions Balance training, Strengthening, Bed mobility training, Stretching, Gait training, Postural re-education, Transfer training, Orthotic fitting/training, Functional Mobility, Neuromuscular re-education, ROM, Wheelchair management/propulsion training PT Frequency 2 - 5 times per week PT Duration 2 weeks Goals PT GOAL DETAILS Time Frame PT Goal 1: Patient to perform supine <> sit IND with HOB flat and no use of bed rails to simulate home environment. 2 weeks PT Goal 2: Patient to perform sit <> stand with min assist to improve functional mobility. 2 weeks PT Goal 3: Patient to transfer to/from wheelchair with min assist to improve functional mobility and decrease caregiver burden. 2 weeks PT Goal 4: Patient to propel self in wheelchair at least 100ft on even surface with SBA. 2 weeks PT Goal 5: Patient to tolerate static/dynamic sitting balance x 10 minutes with SBA to improve sitting balance for participation in upright activity. 2 weeks Written by Hemal Beltran on 06/02/25 at 9:49 AM. * Progress Notes - Sena Ng - 06/02/2025 9:27 AM EDT OCCUPATIONAL THERAPY EVALUATION PATIENT DATA Patient Name Mar Waldron Session Date 06/02/2025 OT Discharge Recommendations Subacute rehab Equipment Recommendations Defer to facility Discharge Transportation Recommendations Car HISTORY Mar Waldron is 55 y.o. female admitted 06/01/2025 for work-up of No Principal Problem: There is no principal problem currently on the Problem List. Please update the Problem List and refresh.. Hospital Course 1. Acute pulmonary edema ([facility]) 2. End-stage renal disease needing dialysis ([facility]) Procedures (if applicable) Past Medical History Patient has a past medical history of Arthritis, CHF (congestive heart failure) ([facility]), Chronic renal failure, Coronary artery disease, Diabetes mellitus ([facility]), HTN (hypertension), Hypothyroidism, and Renal cancer ([facility]). Past Surgical History Patient has a past surgical history that includes Tonsillectomy; Appendectomy; Cholecystectomy; Hysterectomy; section, low transverse; and Coronary artery bypass graft (Bilateral). MOBILITY GUIDELINES There are no questions and answers to display. PRECAUTIONS Medical Precautions Yes Medical Precautions: Fall precautions SUBJECTIVE PARTICIPANTS IN CARE Patient/Caregiver Comments Pt agreeable to therapy Visitors Present No Decorating Inspector (if applicable) PRESENTATION Oxygen Supplemental oxygen Nasal cannula 2 L/min Lines and Tubes Hemodialysis Arteriovenous Fistula Left Forearm (Active) Peripheral IV 06/01/25 Right Antecubital (Active) Pre-Session Supine, Head of bed elevated, Lines intact, Bed alarm RN agreeable to evaluation Post-Session Supine, Head of bed elevated, Lines intact, RN notified, Call light in reach, Bed alarm (zone 1, 2, 3) All needs met. Bracing (if applicable) HOME LIVING/SET-UP Lives With Adult, Son (DIL) Home Type House Home Equipment Wheelchair-manual, Rolling walker, Bedside commode Home Layout Multi-level, Able to live on one level with bedroom/bathroom (reports no stairs to negotiate.) Bathroom Layout Walk-in shower Additional Comments Patient is unreliable historian to provide accurate PLOF, family not present inroom at time of evaluation PRIOR LEVEL OF FUNCTION Receives help from Son (Dtr in law assist with self care.) Level of Mobility Wheelchair/Scooter (Does not go out except for doctor appointments) Mobility [place] Assist with wheelchair propulsion History of Falls Yes ADL Performance ADL Performance: Needs assistance Bathing: Needs assist Upper Body Dressing: Needs assist Lower Body Dressing: Needs assist Grooming: Needs assist Toileting: Needs assist Eating: Needs assist Home Management Skills: Needs assist PATIENT/FAMILY GOALS Pt did not state goal. OBJECTIVE PAIN Pt answered that she did have pain when asked, however did not state where or level when asked at 3different times. She was positioned for comfort at end of session. DELIRIUM SCREENING RASS: Alert and calm Confusion Assessment Method-ICU (CAM-ICU/PCAM-ICU) Feature 3: Altered Level of Consciousness: Negative COGNITION Overall Cognitive Status Impaired Arousal/Alertness Appropriate responses to stimuli Mood/Behavior Alert Orientation Command Following Single Step Commands: With increased time, With repetition Multi-Step Commands: Unable to follow commands Method of Communication Verbal (hard of hearing) Additional Observations VISION Baseline Vision Glasses distance, Glasses reading Current Vision (if different) Patient Visual Report: Blind in left eye RIGHT UPPER EXTREMITY EXAMINATION Range of Motion Within Functional Limits Manual Muscle Testing (Grossly 3+/5) Light Touch Sensation Intact Pain Sensation Muscle Tone LEFT UPPER EXTREMITY EXAMINATION Range of Motion Within Functional Limits Manual Muscle Testing (Grossly 3+/5) Light Touch Sensation Intact Pain Sensation Muscle Tone RIGHT LOWER EXTREMITY EXAMINATION Range of Motion Within Functional Limits (AAROM) Manual Muscle Testing (grossly 2-/5) Light Touch Sensation Mild impairment Pain Sensation Muscle Tone LEFT LOWER EXTREMITY EXAMINATION Range of Motion Within Functional Limits (AAROM) Manual Muscle Testing (grossly 2-/5) Light Touch Sensation Mild impairment Pain Sensation Muscle Tone BED MOBILITY Level of [place] Physical/Non-physical Assist Adaptive Equipment Utilized Rolling/ Turning Contact guard (bilaterally) Verbal Cues, Minimal cues Bed rails Scooting/ Bridging Dependent (scooting to HOB in supine) Verbal Cues, Minimal cues, Additional assist utilized for safety Other (drawsheet) Supine to Sit Moderate assist (50% patient's effort) (pt achieved ~75% to sitting upright EOB then refused further assistance and returned side lying) Set-up required, Verbal Cues, Moderate cues, HOBelevated, Additional assist utilized for safety Sit to Supine Comments FUNCTIONAL MOBILITY Level of [place] Distance Adaptive Equipment Utilized Ambulation Comments Unable to ambulate BALANCE Postural Appearance INTERVENTIONS Unable to assess this date. Level of [place] Balance Support Comments Static Sit Dynamic Sit Static Stand Dynamic Stand INTERVENTIONS SELF-CARE Treatment Minutes (if applicable) 13 Interventions OT promoted adl retraining with pt presenting with delayed responses. She is hard of hearing and communication difficult at times. She attempted to sit up eob however complained of discomfort when rolled to side (cga) and declined further progress. She did have incontinent bowels and d ependent for care. She declined wash cloth for grooming. Level of [place] Adaptive Equipment Utilized Comments Feeding Grooming Bathing Upper Body Dressing Lower Body Dressing Shoe Level of Assistance: Dependent Toileting Dependent Bed level IADLs Health Management Community Re-Entry STANDARDIZED ASSESSMENTS [facility] 6-Click Daily Activities Help from Other: Don/Doff Regular Lower Body Clothings: Total Help From Other: Bathing: A lot Help From Other: Toileting: Total Help From Other: Don/Doff Upper Body Clothings: Total Help From Other: Grooming: Little Help From Other: Eating Meals: Little [facility] 6 Click - Daily Activities Score: 11 ASSESSMENT OT evaluation complete. Pt presents with weakness, decreased activity tolerance, decline in functional mobility and self care independence. Barriers to returning to prior living arrangements include decreased ability to safely perform functional mobility in household setting without risk of fall orinjury, inability to perform self care tasks or manage medical symptoms increasing risk for readmission, and overall decreased activity tolerance limiting capacity to engage in activities of daily living safely. Recommend subacute rehabilitation at discharge secondary to pt's need for therapy five days a week in a setting that can monitor medical conditions to ensure needs are met, decrease risk of readmission, and promote safety as well as improved independence in adl and functional mobility. OT FINDINGS Impaired ADL performance, Impaired IADL performance, Decreased upper extremity strength, Decreased endurance/ventilation/gas exchange, Impaired functional mobility, Impaired balance Evaluation/ Treatment Tolerance (if identified) Rehab Potential (if identified) Fair, will monitor progress closely Barriers to Discharge (if identified) Comorbidities, Attitude of self EVAL COMPLEXITY Occupational Profile Expanded review of medical/therapy records and additional review of physical, cognitive, or psychosocial history Performance Deficits Activities of daily living (ADLs), Instrumental activities of daily living (IADLs), Roles, Habits, Routines, Body functions, Physical, Personal Clinical Decision Making Moderate Overall Eval Complexity Moderate OT RECOMMENDATIONS Discharge Destination Subacute rehab Discharge Equipment Defer to facility Recommendations for Referral to Another Service (if applicable) PLAN Planned OT Interventions ADL retraining, IADL retraining, Balance training, Bed mobility Training, Transfer training, Functional mobility, Caregiver education, Strengthening, ROM OT Frequency 2 - 5 times per week OT Duration 2 weeks OT GOALS OT GOAL DETAILS Time Frame OT Goal 1: Pt will demonstrate improved activity tolerance to sit edge of bed times 5 minutes with sba while performing static/dynamic adl tasks before requiring a rest break. 2 weeks OT Goal 2: Pt will complete lower body dressing with mod assist using adaptive equipment as needed. 2 weeks OT Goal 3: Pt will complete toilet transfer with min A using adaptive equipment as needed. 2 weeks Written by Sena Ng on 06/02/25 at 11:37 AM. * Consults - Ramin Spencer MD - 06/02/2025 7:37 AM EDTAssociated Order(s): Consult to Nephrology Consult to Nephrology Consult performed by: Ramin Spencer MD Consult ordered by: Senthil Carnes MD Reason for consult: ESRD, access issue Nephrology Dialysis Consult Note Patient: Mar Waldron Admit Date: 06/01/2025 Date of Consult: 06/02/2025 Time of Consult: 7:43 AM Requesting Attending: Neno Yancey MD Reason for Consult: ESRD management HPI: Mrs Mar Waldron is a 54 y.o. female with a history of ESRD on iHD, HTN, COPD, HFpEF, CAD, HLD, Hypothyroidism, T2DM who presented to the ED for SOA and concern for AMS. Patient had been to her HD unit on Tuesday and had difficulty with access of LUE AVF. Per report patient has been attending outpatient hemodialysis unit without issues. Son had reported that patient had a fall in the shower and hit her head this past week, however she was taken to an outside ED and reportedly had negative CT head. She went to her dialysis unit on Tuesday for scheduled [employer] however had issues with inability to access fistula. Son additionally reported concerns for altered mentation stating that mom was not herself. Nephrology consulted for ESRD management while inpatient. ROS: ROS was obtained in 14 points [...] Resource Strain: High Risk (06/17/2024) Received from [facility] ([place], [place], [place], [place]) Financial Resource Strain [...] No Physical Activity: Inactive (06/17/2024) Received from [facility] ([place], [place], [place], [place]) Physical Activity Number of minutes of exercise per week : 0 Stress: No Stress Concern Present (04/15/2024) Received from [facility] ([place], [place], [place], [place]) Stress Feeling stress past 2 weeks: 1 Social Connections: Unknown (06/25/2024) Social Connection and Isolation Panel Frequency of Communication with Friends and Family: Not on file Frequency of Social Gatherings with Friends and Family: Not on file Attends [employer] Services: Not on file Active Member of Clubs or Organizations: Not on file Attends Club or Organization Meetings: Not on file Marital Status: Living with partner Intimate Partner Violence: Not At Risk (07/02/2024) Received from [facility] Abuse Screen Feels Unsafe at Home or [...] Medications[8] Physical Exam: Visit Vitals BP (!) 117/39 (BP Location: Right arm, Patient Position: Lying) Pulse 57 Temp 36.5 ??C (97.7 ??F) (Oral) Resp 18 Ht 1.702 m (5' 7 ) Wt 60.8 kg (134 lb) SpO2 91% BMI 20.99 kg/m?? Smoking Status Every Day BSA 1.7 m?? Gen: Awake, alert, NAD HEENT: MMM, OP clear without lesions or exudate Neck: Supple CV: Regular rhythm, Normal S1/S2 Pulm: Clear to auscultation, normal respiratory effort Abd: Soft, non-tender, non-distended. Active BS. Ext: No edema Skin: No jaundice. No rashes noted on observed skin Neuro: Alert and oriented. Moving all extremities Access: LUE forearm fistula without thrill Laboratory: CBC: Results from last 7 days Lab Units 06/02/25 0407 06/01/25 1647 WBC 10*3/uL 6.73 6.37 HEMOGLOBIN g/dL 7.7* 8.6* HEMATOCRIT % 27.9* 30.3* PLATELETS 10*3/uL -- 46* CMP: Results from last 7 days Lab Units 06/02/25 0407 06/01/25 1647 SODIUM mmol/L 136 138 POTASSIUM mmol/L 3.6 3.4* CHLORIDE mmol/L 96* 96* CO2 mmol/L 22 25 BUN mg/dL 61* 57* CREATININE mg/dL 3.90* 3.87* CALCIUM mg/dL 8.1* 8.3* BILIRUBIN TOTAL mg/dL 0.3 0.3 ALKALINE PHOSPHATASE U/L 194* 224* ALT U/L <5* <5* AST U/L 20 19 GLUCOSE mg/dL 132* 166* Impression & Plan: Mrs Waldron is a 54 y.o. wo/man with a history of ESRD on iHD, HTN, COPD, HFpEF who presented to ED on 05/06 for lab check and possible iHD. Nephrology consulted for ESRD management. Outpatient HD: - Schedule: Not established yet, likely MWF - Dialysis Unit: [facility] - Outpatient Machine Tracer: Dr. Tiny Summers - Residual renal functions: - EDW: previously 59kg, will need new challenge weight outpatient - Access: LUE Forearm AVF Assessment and Plan: #Hypervolemia #Hypertension #Anemia in CKD #CKD-MBD #ESRD on HD #Left Inferior Pole Renal Mass - Noted on MRI from February 2025 Recommendations: - No urgent indications for HD, can begin pending access - Plan for LUE AVF angiography w/ possibly angioplasty Monday 06/04 - Additional workup of AMS as unlikely to be uremia, consider head imaging given h/o fall - Will continue home MWF HD schedule while inpatient; Rx 136 Na 2 K 2.25 Ca 32 Co2 2-3 L UF as tolerated 3 hours - Will assess need for UMESH; Hgb currently 7.7 - Please resume home Phos binders (Renvela) when tolerating PO - Please obtain daily weights, strict I's and O's. - Recommend low K, low P diet while inpatient - Renally dose medications for iHD Please call or page with any questions. We will follow along for the duration of this admission. Ramin Spencer MD Department of Nephrology PGY-4 Pager: [phone]; Epic Chat Preferred [1] Past Medical History: Diagnosis Date Arthritis CHF (congestive heart failure) (CMS/HCC) Chronic renal failure Coronary artery disease Diabetes mellitus (CMS/HCC) HTN (hypertension) Hypothyroidism Renal cancer (CMS/HCC) [2] Patient Active Problem List Diagnosis Volume overload ESRD (end stage renal disease) (CMS/HCC) CHF (congestive heart failure) (CMS/HCC) Pleural effusion Acute hypoxic respiratory failure [3] Past Surgical History: Procedure Laterality Date APPENDECTOMY SECTION, LOW TRANSVERSE CHOLECYSTECTOMY CORONARY ARTERY BYPASS GRAFT Bilateral HYSTERECTOMY TONSILLECTOMY [4] Family History Problem Relation Name Age of Onset Diabetes Mother Diabetes Father Hypertension Mother Hypertension Father Other cancer Mother Other cancer Father Hyperlipidemia Mother Hyperlipidemia Father [5] Allergies Allergen Reactions Monetaglar Jose Miguel [Insulin Glargine] Other - please document in the comment field Lisinopril Cough and Unknown - Patient states they do not know rxn details Cough [6] Current Facility-Administered Medications: atorvastatin (Lipitor) tablet 80 mg, 80 mg, Oral, Nightly, Roger Figueroa, DO doxazosin (Cardura) tablet 2 mg, 2 mg, Oral, Nightly, CarolinaRoger wooten, DO ezetimibe (Zetia) tablet 10 mg, 10 mg, Oral, Daily, Roger Figueroa, DO levothyroxine (Synthroid, Levoxyl) tablet 75 mcg, 75 mcg, Oral, Daily before breakfast, Roger Figueroa, DO ondansetron (Zofran) injection 4 mg, 4 mg, Intravenous, q6h PRN, Edvin Du R, DO oxyCODONE (Roxicodone) immediate release tablet 5 mg, 5 mg, Oral, q6h PRN, Edvin Du R, DO pantoprazole (Protonix) EC tablet 40 mg, 40 mg, Oral, Daily, Carolina, Roger, DO Insert peripheral IV, , , Once AND Saline lock IV, , , Once AND sodium chloride 0.9 % flush10 mL, 10 mL, Intravenous, q12h AND sodium chloride 0.9 % flush 10 mL, 10 mL, Intravenous, PRN,Edvin Du R, DO Current Outpatient Medications: albuterol 108 (90 Base) [...] Rfl: 0 ergocalciferol (Vitamin D-2) 1.25 MG (60465 UT) capsule, Take 1 capsule (50,000 Units) [...] days., Disp: 4 tablet, Rfl: 0 [7] atorvastatin, 80 mg, Oral, Nightly doxazosin, 2 mg, Oral, Nightly ezetimibe, 10 mg, Oral, Daily levothyroxine, 75 mcg, Oral, Daily before breakfast pantoprazole, 40 mg, Oral, Daily sodium chloride, 10 mL, Intravenous, q12h [8] Cosigned by Medina Ferris MD at 06/03/2025 10:16 AM EDT Associated attestation - Medina Ferris MD - 06/03/2025 10:16 AM EDT I saw and evaluated the patient. I discussed the case with the resident/fellow and agree with the findings and plan as documented. * H&P - Edvin Du DO - 06/01/2025 9:48 PM EDT Images from the original note were not included. ED Observation History and Physical Note Patient: Mar Waldron Admit Date: 06/01/2025 Admitting Attending: Senthil Carnes MD Chief Complaint: Chief Complaint Patient presents with Fistula problem HPI: Mar Waldron is a 55 y.o. female with PMH significant for Bradycardia, CAD, Chronic pain syndrome, COPD, Dyslipidemia, End stage renal disease, GERD, Hypertension, Hypothyroidism, and Type 2 diabetes mellitus presenting for shortness of air. ED Course: Per discussion with ED providers, patient is possibly a little altered at this time. Shewent to dialysis today and they were unable to get blood. She is a former smoker. She had a recent fall in the shower - led to ER CT head which was negative. She reports feeling SOB the past few days. Denies sick contacts, fever, chills, leg swelling/pain. NVD, changes to her urinary habits or painwhen she pees. She's a bit bradycardic, o2 dropped to 85 so she was started on 2L of oxygen, improved to 95%. BP was 122/49. Crackles noted over all lung [place]. No swelling of her legs or signs thatshe is volume overloaded other than her chest xray. On my evaluation, attempted to confirm above history, however no family members at bedside and patient appears to be poor historian. She did confirm recent fall and reports that shortness of breath has been since that evaluation which she reports to be yesterday. Per ED providers and nursing staff,when patient's family was there, they reported her to be at her baseline and nursing staff reportedthat her sons act as caregivers for patient. Collateral obtained with primary contact, son: He states that approximately 1 month ago, he drove down to [place] to pick her up where she was living with her boyfriend of the time. The boyfriend wasthe primary caregiver and patient is bed-bound. At that time she was noted to have bedsores and wasnot being cared for well. Since then him in his brother have Alonso taken caregiver rolls on for her. He reports that she has requested all levels of care necessary. Reports that she has established with a primary care doctor in [place]. Reports that yesterday she had an accident yesterday prior to HD and fell in the shower hitting her head, took her to ED and CT was negative, called HD today since she missed yesterday and took her to HD this AM, they were unable to get blood return from port,then struggled to get port to stop bleeding, then she was not herself. Also reports that she did not report SOA until in the ED for yesterdays evaluation. Alterred mental status prompted them to bring her into the ED today. Admitted to ED observation under attending Dr. Carnes for hemodialysis and echo. ROS: Review of Systems Additional review of systems negative except per HPI. History: Past Medical History[1] Problem List[2] [...] Resource Strain: High Risk (06/17/2024) Received from [facility] ([place], [place], [place], [place]) Financial Resource Strain How hard [...] No Physical Activity: Inactive (06/17/2024) Received from [facility] ([place], [place], [place], [place]) Physical Activity Number of minutes of exercise per week : 0 Stress: No Stress Concern Present (04/15/2024) Received from [facility] ([place], [place], [place], [place]) Stress Feeling stress past 2 weeks: 1 Social Connections: Unknown (06/25/2024) Social Connection and Isolation Panel Frequency of Communication with Friends and Family: Not on file Frequency of Social Gatherings with Friends and Family: Not on file Attends [employer] Services: Not on file Active Member of Clubs or Organizations: Not on file Attends Club or Organization Meetings: Not on file Marital Status: Living with partner Intimate Partner Violence: Not At Risk (07/02/2024) Received from [facility] Abuse Screen Feels Unsafe at Home or [...] Year: No Allergies[5] Medications: Home Medications: Current Outpatient Medications Medication Instructions albuterol 108 (90 Base) MCG/ACT inhaler 2 puffs, Inhalation, Every 6 hours PRN atorvastatin (LIPITOR) 80 mg, Oral, Nightly carvedilol (COREG) 25 mg, Oral, 2 times daily with meals cloNIDine (Catapres) 0.1 MG tablet 1 tablet, Oral, 2 times daily PRN, If systolic blood pressure isgreater than 180 clopidogrel (PLAVIX) 75 mg, Oral, Daily doxazosin (CARDURA) 2 mg, Oral, Nightly ergocalciferol (VITAMIN D-2) 50,000 Units, Oral, Every 14 days ezetimibe (ZETIA) 10 mg, Oral, Daily hydrALAZINE (APRESOLINE) 100 mg, Oral, 3 times daily isosorbide mononitrate ER (IMDUR) 120 mg, Oral, Every morning, Do not crush or chew. lactulose (Chronulac) 10 GM/15ML solution 15 mL, Oral, Daily PRN levothyroxine (SYNTHROID, LEVOXYL) 75 mcg, Oral, Daily before breakfast NIFEdipine XL (PROCARDIA XL) 90 mg, Oral, Daily, Do not crush, chew, or split. oxyCODONE-acetaminophen (Percocet) 10-325 MG tablet 1 tablet, Oral, Every 6 hours PRN pantoprazole (PROTONIX) 20 mg, Oral, Daily before breakfast, Do not crush, chew, or split. topiramate (TOPAMAX) 25 mg, Oral, Nightly valsartan (DIOVAN) 80 mg, Oral, 2 times daily Current Medications: Current Scheduled Medications[6] Current PRN Medications[7] Current Continuous Medications[8] Objective: Visit Vitals BP 109/58 (BP Location: Right arm, Patient Position: Lying) Pulse (!) 49 Temp 36.3 ??C (97.4 ??F) (Oral) Resp 15 Ht 1.702 m (5' 7 ) Wt 60.8 kg (134 lb) SpO2 92% BMI 20.99 kg/m?? Smoking Status Every Day BSA 1.7 m?? Physical Exam Vitals and nursing note reviewed. Constitutional: General: She is not in acute distress. Appearance: Normal appearance. She is ill-appearing. HENT: Head: Normocephalic. Mouth/Throat: Mouth: Mucous membranes are dry. Eyes: Conjunctiva/sclera: Conjunctivae normal. Cardiovascular: Rate and Rhythm: Normal rate and regular rhythm. Heart sounds: Normal heart sounds. No murmur heard. Pulmonary: Effort: Pulmonary effort is normal. No respiratory distress. Comments: Decreased breath sounds on right side Musculoskeletal: Cervical back: Neck supple. Right lower leg: No edema. Left lower leg: No edema. Skin: General: Skin is warm and dry. Coloration: Skin is pale. Neurological: General: No focal deficit present. Mental Status: She is alert. Mental status is at baseline. Comments: Minimally interactive in questioning, poor medical liaison Psychiatric: Mood and Affect: Mood normal. Behavior: Behavior normal. Laboratory: Heme: Lab Results Component Value Date WBC 6.37 06/01/2025 RBC 3.11 (L) 06/01/2025 HGB 8.6 (L) 06/01/2025 HCT 30.3 (L) 06/01/2025 PLT 46 (L) 06/01/2025 MCV 97 06/01/2025 MCH 27.7 06/01/2025 MCHC 28.4 (L) 06/01/2025 RDW 15.4 (H) 06/01/2025 NRBC 0.0 06/01/2025 Lab Results Component Value Date WBC 6.37 06/01/2025 Coagulation: No results found for: INR , PT , PTT , CLFGN Renal: Lab Results Component Value Date NA 138 06/01/2025 K 3.4 (L) 06/01/2025 CL 96 (L) 06/01/2025 CO2 25 06/01/2025 BUN 57 (H) 06/01/2025 CREATININE 3.87 (H) 06/01/2025 GLUCOSE 166 (H) 06/01/2025 CALCIUM 8.3 (L) 06/01/2025 MG 2.4 06/01/2025 PHOS 4.7 (H) 06/01/2025 Liver: Lab Results Component Value Date AST 19 06/01/2025 ALT <5 (L) 06/01/2025 BILITOT 0.3 06/01/2025 Glucose: No results found for: PGLU Lab Results Component Value Date HGBA1C 5.7 (H) 06/30/2024 Microbiology Results Procedure Component Value Units Date/Time Blood Culture (Aerobic/Anaerobet Set) [[id number]] Collected: 06/01/251851 Order Status: Completed Specimen: Blood from Wrist, Right Updated: 06/01/252108 Culture Culture in lab Narrative: Low blood volume submitted, results may be compromised Blood Culture (Aerobic/Anaerobet Set) [[id number]] Collected: 06/01/251851 Order Status: Completed Specimen: Blood from Hand, Right Updated: 06/01/252100 Culture Culture in lab Narrative: Low blood volume submitted, results may be compromised SARS-CoV-2, Flu A, Flu B, and RSV - Rapid [[id number]] (Normal) Collected: 06/01/251852 Order Status: Completed Specimen: Swab from Nasopharynx Updated: 06/01/251958 SARS CoV-2/COVID-19 RNA PCR Result Not Detected Influenza A Virus PCR Result Not Detected Influenza B Virus PCR Result Not Detected Respiratory Syncytial Virus (RSV) PCR Result Not Detected Narrative: This test is FDA approved for use with nasopharyngeal specimens in Viral Transport Media (VTM). This test is used for clinical purposes. It should not be regarded as investigational or for research. This laboratory is certified under the Clinical Laboratory improvement Amendments of 1988 (CLIA-88 as qualified to perform high complexity clinical laboratory testing. This test was performed on the Xpert Xpress SARS CoV-2 Plus assay test, a PCR- based method. Negative results should be considered presumptive and do not preclude current or future infection obtained through community transmission or other exposures. Negative results must be considered in the context of an individual's recent exposures, history, presence of clinical signs and symptoms consistent with COVID-19. ? Imaging: XR Chest 1 View Result Date: 06/01/2025 Impression: Moderate to large right pleural effusion and bilateral airspace disease, likely reflecting pulmonary edema. CRITICAL RESULT: No. COMMUNICATION: Per this written report. Preliminary reportsigned by En Amato MD on 06/01/2025 6:40 PM By electronically signing this report, I, the attending physician, attest that I have personally reviewed the images/data for the above examination(s) and agree with the final edited report. Drafted by En Amato MD on 06/01/2025 6:39 PM Final report signed by Tawny Hughes MD on 06/01/2025 7:25 PM Assessment & Plan: Mar Waldron is a 55 y.o. female with PMH significant for Bradycardia, CAD, congestive heart failure, Chronic pain syndrome, COPD, Dyslipidemia, End stage renal disease, GERD, Hypertension, Hypothyroidism, and Type 2 diabetes mellitus admitted to Observation level of care for HD and ECHO. Assessment & Plan ESRD (end stage renal disease) ([facility]) CHF (congestive heart failure) ([facility]) Pleural effusion Acute hypoxic respiratory failure -Vitals: Notably bradycardic and desaturated requiring 2 L NC -Physical Examination: Chronically ill-appearing -Labs: Normocytic anemia, appropriate VBG, COVID/flu/RSV negative, CMP with creatinine 3.87 on unknown recent baseline, elevated BUN, potassium 3.4 -Imaging: Moderate to large right pleural effusion and bilateral airspace disease, likely reflecting pulmonary edema. -DDx: AHRF most likely Iso failed dialysis session and volume overload leading to pleural effusion PLAN -admitted under attending Dr. Carnes for additional workup. - Continue O2 and wean as tolerated to 88-92% given history of COPD - Low threshold for hospital admission in setting of worsening O2 requirement - Hemodialysis as planned with Nephrology in a.m. - Added on BNP and echo for further evaluation of CHF - May benefit in the future from thoracentesis for pleural effusion - Low threshold for broad-spectrum antibiotics if patient were to begin to show infectious signs - Pain control at decreased from home dosing as home dosing makes patient altered Chronic Medical Conditions - Other than pain medication, holding all home medications as significant medication reconciliationas necessary. Medications listed in chart are historical medications and list provided immediate TAVR very different than medications listed in chart, possibly encompassing additional past medical his tory that family maybe unaware of. Specifically holding home antihypertensives and rate control medications in setting of normotensive blood pressure and bradycardia. F: PO E: Monitor and replace as necessary N: Adult diet Diet texture: Regular; Electrolyte Restriction: Renal GI: no PPI DVT prophylaxis: SCDs CODE: Full Code , confirmed with [facility] SOCIAL: Lives with 2 sons who are primary caregivers, recently moved from [place] PT/OT: consulted, appreciate recommendations Consultants: Nephrology DISPO/Discharge Criteria: [ ] HD [ ] Improvement [ ] In O2 requirement echo Medically Ready for Discharge:Anticipated Tomorrow Edvin Du DO, MS, MS Family Medicine, PGY-3 [facility] [1] Past Medical History: Diagnosis Date Arthritis CHF (congestive heart failure) (CMS/HCC) Chronic renal failure Coronary artery disease Diabetes mellitus (CMS/HCC) HTN (hypertension) Hypothyroidism Renal cancer (CMS/HCC) [2] Patient Active Problem List Diagnosis Volume overload ESRD (end stage renal disease) (CMS/HCC) CHF (congestive heart failure) (CMS/HCC) Pleural effusion Acute hypoxic respiratory failure [3] Past Surgical History: Procedure Laterality Date APPENDECTOMY SECTION, LOW TRANSVERSE CHOLECYSTECTOMY CORONARY ARTERY BYPASS GRAFT Bilateral HYSTERECTOMY TONSILLECTOMY [4] Family History Problem Relation Name Age of Onset Diabetes Mother Diabetes Father Hypertension Mother Hypertension Father Other cancer Mother Other cancer Father Hyperlipidemia Mother Hyperlipidemia Father [5] Allergies Allergen Reactions Basaglar Kwikpen [Insulin Glargine] Other - please document in the comment field Lisinopril Cough and Unknown - Patient states they do not know rxn details Cough [6] sodium chloride, 10 mL, Intravenous, q12h [7] PRN medications: ondansetron, oxyCODONE, Insert peripheral IV AND Saline lock IV AND sodium chloride AND sodium chloride [8] Cosigned by Senthil Carnes MD at 06/04/2025 1:48 PM EDT Associated attestation - Senthil Carnes MD - 06/04/2025 1:48 PM EDT I saw and evaluated the patient with the resident/fellow. I discussed the case with the resident/fellow and agree with the findings and plan as documented. I personally spent a total of 45 minutes on this encounter. This time includes face to face with patient, counseling, and discussion and/or coordination of care. * Assessment & Plan Note - Edvin Du DO - 06/01/2025 3:09 PM EDT Associated Problem(s): ESRD (end stage renal disease) -Vitals: Notably bradycardic and desaturated requiring 2 L NC -Physical Examination: Chronically ill-appearing -Labs: Normocytic anemia, appropriate VBG, COVID/flu/RSV negative, CMP with creatinine 3.87 on unknown recent baseline, elevated BUN, potassium 3.4 -Imaging: Moderate to large right pleural effusion and bilateral airspace disease, likely reflecting pulmonary edema. -DDx: AHRF most likely Iso failed dialysis session and volume overload leading to pleural effusion PLAN -admitted under attending Dr. Carnes for additional workup. - Continue O2 and wean as tolerated to 88-92% given history of COPD - Low threshold for hospital admission in setting of worsening O2 requirement - Hemodialysis as planned with Nephrology in a.m. - Added on BNP and echo for further evaluation of CHF - May benefit in the future from thoracentesis for pleural effusion - Low threshold for broad-spectrum antibiotics if patient were to begin to show infectious signs - Pain control at decreased from home dosing as home dosing makes patient altered * Assessment & Plan Note - Edvin Du DO - 06/01/2025 3:09 PM EDT Associated Problem(s): CHF (congestive heart failure) -Vitals: Notably bradycardic and desaturated requiring 2 L NC -Physical Examination: Chronically ill-appearing -Labs: Normocytic anemia, appropriate VBG, COVID/flu/RSV negative, CMP with creatinine 3.87 on unknown recent baseline, elevated BUN, potassium 3.4 -Imaging: Moderate to large right pleural effusion and bilateral airspace disease, likely reflecting pulmonary edema. -DDx: AHRF most likely Iso failed dialysis session and volume overload leading to pleural effusion PLAN -admitted under attending Dr. Carnes for additional workup. - Continue O2 and wean as tolerated to 88-92% given history of COPD - Low threshold for hospital admission in setting of worsening O2 requirement - Hemodialysis as planned with Nephrology in a.m. - Added on BNP and echo for further evaluation of CHF - May benefit in the future from thoracentesis for pleural effusion - Low threshold for broad-spectrum antibiotics if patient were to begin to show infectious signs - Pain control at decreased from home dosing as home dosing makes patient altered * Assessment & Plan Note - Edvin Du DO - 06/01/2025 3:09 PM EDT Associated Problem(s): Pleural effusion (Resolved 06/10/2025) -Vitals: Notably bradycardic and desaturated requiring 2 L NC -Physical Examination: Chronically ill-appearing -Labs: Normocytic anemia, appropriate VBG, COVID/flu/RSV negative, CMP with creatinine 3.87 on unknown recent baseline, elevated BUN, potassium 3.4 -Imaging: Moderate to large right pleural effusion and bilateral airspace disease, likely reflecting pulmonary edema. -DDx: AHRF most likely Iso failed dialysis session and volume overload leading to pleural effusion PLAN -admitted under attending Dr. Carnes for additional workup. - Continue O2 and wean as tolerated to 88-92% given history of COPD - Low threshold for hospital admission in setting of worsening O2 requirement - Hemodialysis as planned with Nephrology in a.m. - Added on BNP and echo for further evaluation of CHF - May benefit in the future from thoracentesis for pleural effusion - Low threshold for broad-spectrum antibiotics if patient were to begin to show infectious signs - Pain control at decreased from home dosing as home dosing makes patient altered * Assessment & Plan Note - Edvin Du, - 06/01/2025 3:09 PM EDT Associated Problem(s): Acute hypoxic respiratory failure (Resolved 06/10/2025) -Vitals: Notably bradycardic and desaturated requiring 2 L NC -Physical Examination: Chronically ill-appearing -Labs: Normocytic anemia, appropriate VBG, COVID/flu/RSV negative, CMP with creatinine 3.87 on unknown recent baseline, elevated BUN, potassium 3.4 -Imaging: Moderate to large right pleural effusion and bilateral airspace disease, likely reflecting pulmonary edema. -DDx: AHRF most likely Iso failed dialysis session and volume overload leading to pleural effusion PLAN -admitted under attending Dr. Carnes for additional workup. - Continue O2 and wean as tolerated to 88-92% given history of COPD - Low threshold for hospital admission in setting of worsening O2 requirement - Hemodialysis as planned with Nephrology in a.m. - Added on BNP and echo for further evaluation of CHF - May benefit in the future from thoracentesis for pleural effusion - Low threshold for broad-spectrum antibiotics if patient were to begin to show infectious signs - Pain control at decreased from home dosing as home dosing makes patient altered * ED Provider Notes - Jay Matthews, - 06/01/2025 3:09 PM EDT Images from the original note were not included. - HPI Chief Complaint Patient presents with Fistula problem PIT Note Mar Waldron is a 55 y.o. female who presents to ED with fistual issue. Pt son states she has been having intermittent issues w/ fistula. Last used it on Tuesday for her dialysis, missed Fridays dialysis because she had a fall and was seen at another ED for a head CT. Today she went to have dialysis and the nurses said that her fistula wasn't working. Pt states she has been having issues breathing. Hx of CHF, DM, chronic renal failure, HTN, renal cancer. Patient denies any other medical complaints at this time. History provided by: Patient and relative children's minister used: Liz Manuel is a 55 year old woman (that appears to be much older) with a PMH of CHF, CABG, ESRD on HD (last session was Tuesday), and newly discovered renal mass who is presenting to the ED with Shortness of breath. She is poor historian, possibly a little altered at this time, and is somewhat short of breath. Her sons are in the room and provided the vast majority of her history. She went to dialysis today and they were unable to get blood, but then they had to wait almost an hour because they couldn't stop her bleeding from the same site. She is a former smoker. She had a recent fall in the shower - led to ER CT head which was negative. She reports feeling SOB the past few days. Denies sick contacts, fever, chills, leg swelling/pain. NVD, changes to her urinary habits or pain when she pees. She's a bit bradycardic, o2 dropped to 85 while I was in there so I started her on 2L of oxygen, improved to 95%. BP was 122/49. Patient History Past Medical History[1] Surgical History[2] Family History[3] Social History[4] Allergies: Allergies[5] Physical Exam ED Triage Vitals [06/01/25 1535] Temp Heart Rate Resp BP 36.7 ??C (98.1 ??F) 50 18 137/52 SpO2 Temp Source Heart Rate Source Patient Position 92 % Oral -- -- BP Location FiO2 (%) -- -- Physical Exam Constitutional: General: She is not in acute distress. HENT: Head: Normocephalic. Comments: No facial swelling Right Ear: External ear normal. Left Ear: External ear normal. Mouth/Throat: Mouth: Mucous membranes are moist. Pharynx: Oropharynx is clear. Cardiovascular: Rate and Rhythm: Bradycardia present. Pulses: Normal pulses. Heart sounds: Normal heart sounds. No murmur heard. Pulmonary: Effort: Pulmonary effort is normal. No respiratory distress. Breath sounds: Normal air entry. Rales (bilaral and diffuse) present. No wheezing. Comments: Speaking full sentences. Symmetric chest rise Abdominal: General: Abdomen is flat. There is no distension. Palpations: Abdomen is soft. Tenderness: There is no abdominal tenderness. Musculoskeletal: General: No swelling or deformity. Normal range of motion. Cervical back: Normal range of motion. Right lower leg: No edema. Left lower leg: No edema. Comments: Atraumatic, moves all extremities spontaneously Skin: General: Skin is warm and dry. Coloration: Skin is pale. Neurological: Mental Status: She is alert and oriented to person, place, and time. Mental status is at baseline. Comments: Awake Psychiatric: Mood and Affect: Mood normal. Behavior: Behavior normal. Pippa Coma Scale Score: 15 ED Course & MDM - Date/Time: 06/01/2025/8:23 PM Entered by Saman Back acting as scribe for Dr. Klarissa Monterroso DO Attending Attestation: The documentation was recorded by Saman Back, acting as scribe in my presence at the time of the encounter and accurately reflects the service I personally performed. Assessment: 55 y.o. female presents to ED with complaint of SOB and need for dialysis. It should be noted that the chronic conditions includes ESRD,CHF, CAD, CABG, which currently is not at goal therapy. This complicates the clinical picture because it Comorbidities: may be exacerbating symptoms, increases theamount and complexity of data to be reviewed, and complicates the clinical workup Differential Diagnosis: Pulmonary edema, need for dialysis, pneumonia, pericardial effusion, cancer In order to fully explore the differential diagnosis the following treatments and tests were ordered: ED Medication Administration from 06/01/2025 1508 to 06/01/20252022 Date/Time Order Dose Route Action 06/01/2025 1905 EDT azithromycin (Zithromax) 500 mg in sodium chloride 0.9% 250 mL IVPB (vial adapter required) -- Intravenous Canceled Entry 06/01/20251921 EDT cefTRIAXone (Rocephin) 2 g in sodium chloride 0.9% 100 mL IVPB (vial adapter required) 2 g Intravenous New Bag 06/01/20251951 EDT cefTRIAXone (Rocephin) 2 g in sodium chloride 0.9% 100 mL IVPB (vial adapter required) 0 g Intravenous Stopped All Other Orders Ordered Status Ordering Provider 06/01/251913 Once Specialty: Internal Medicine Provider: (Not yet assigned) Canceled JAY MATTHEWS 06/01/251913 Once Canceled JAY MATTHEWS 06/01/25 185 VAS US Hemodialysis Access Left Once Acknowledged FAIZA GARVIN 06/01/251857 Initiate contact isolation Continuous Comments: Added via Instant Order OPA Acknowledged BPA, INSTANT ORDERS 06/01/251857 Initiate N95 isolation Continuous Comments: Added via Instant Order OPA Acknowledged BPA, INSTANT ORDERS 06/01/251857 Initiate eye protection Continuous Comments: Added via Instant Order OPA Acknowledged BPA, INSTANT ORDERS 06/01/25 1843 SARS-CoV-2, Flu A, Flu B, and RSV - Rapid STAT Final result JAY MATTHEWS 06/01/25 1838 Blood Culture (Aerobic/Anaerobet Set) STAT In process CASSIEJAY Lucero T 06/01/25 1838 Blood Culture (Aerobic/Anaerobet Set) STAT In process JAY MATTHWES T 06/01/25 1636 EKG now - STAT (adult) Once Preliminary result LOCKLARISSA DENISE L 06/01/25 1636 XR Chest 1 View One time imaging Final result LOCCARROL DENISEICA L 06/01/25 1636 CMP STAT Final result LOC, KLARISSA L 06/01/25 1636 CBC STAT Final result LOC, KLARISSA L 06/01/25 1636 Magnesium STAT Final result LOC, KLARISSA L 06/01/25 1636 Phosphorus STAT Final result CARROL MONTERROSOICA L 06/01/25 1636 Blood gas panel, venous STAT Final result [facility] ED Course as of 06/01/252022 Sat Jun 01, 2025 1710 Hemoglobin(!): 8.6 H and H low but not in need of transfusion [SH] 1806 Creatinine(!): 3.87 Likely secondary to ESRD and lack of dialysis [SH] 2019 SARS-CoV-2, Flu A, Flu B, and RSV - Rapid Hutchins negative [SH] 2019 XR Chest 1 View Moderate to large right pleural effusion and bilateral airspace disease, likely reflecting pulmonary edema. [SH] 2019 EKG now - STAT (adult) PACs and bradycardia [SH] ED Course User Index [SH] Jay Matthews, DO Clinical Impressions as of 06/01/252022 Acute pulmonary edema (CMS/HCC) End-stage renal disease needing dialysis (CMS/HCC) Social Determinates of Health Risks (including Economic Stability, Education and level of understanding, Healthcare access and quality and concerning social factors): Poor health literacy Ultimately, this patient was was signed out to the oncoming provider (Signed Out) Patient care assumed by oncoming provider, Dr. Madden, at shift change, tentative plan at the time of sign-out was admit to ED OBS, follow up on US imaging of fistula, consult nephrology in the morning for dialysis ED Prescriptions None Disposition Admit - [1] Past Medical History: Diagnosis Date Arthritis CHF (congestive heart failure) (CMS/HCC) Chronic renal failure Coronary artery disease Diabetes mellitus (CMS/HCC) HTN (hypertension) Hypothyroidism Renal cancer (CMS/HCC) [2] Past Surgical History: Procedure Laterality Date APPENDECTOMY SECTION, LOW TRANSVERSE CHOLECYSTECTOMY CORONARY ARTERY BYPASS GRAFT Bilateral HYSTERECTOMY TONSILLECTOMY [3] Family History Problem Relation Name Age of Onset Diabetes Mother Diabetes Father Hypertension Mother Hypertension Father Other cancer Mother Other cancer Father Hyperlipidemia Mother Hyperlipidemia Father [4] Tobacco Use Smoking status: Every Day Substance Use Topics Alcohol use: No [5] Allergies Allergen Reactions Basaglar Ashleighpen [Insulin Glargine] Other - please document in the comment field Lisinopril Cough and Unknown - Patient states they do not know rxn details Cough Jay Matthews DO Resident 06/01/252052 Cosigned by Faiza Garvin MD at 06/01/2025 8:56 PM EDT Associated attestation - Faiza Garvin MD - 06/01/2025 8:56 PM EDT I saw and evaluated the patient with the resident/fellow. I discussed the case with the resident/fellow and agree with the findings and plan as documented. * ED Triage Notes - Silva Lara RN - 06/01/2025 3:09 PM EDT [facility] reports that they just recently moved the patient from [place] up here with them and the dialysis place here intermittently has been having trouble with her fistula. Last used it on Tuesday for her dialysis, missed Fridays dialysis because she had a fall and was seen at another ED for a headCT. Today she went to have dialysis and the nurses said that her fistula wasn't working. * Progress Notes - Chano-Juan Jose Marroquin MD - 06/01/2025 3:09 PM EDT Images from the original note were not included. ED TRANSFER OF CARE NOTE Transferring provider: Faiza Garvin Transferring attending: Jay NORIEGA Time: 9:00pm I received sign-out and accepted care of this patient from the previous ED providers caring for this patient. I reviewed the patient's history, exam, work- up, and treatment plan up to this point. Please see the primary ED Provider Note for complete elements of the history, physical exam, and ED course. PERTINENT HISTORY: In brief, Mar Waldron is a 55 y.o. female with relevant PMH CHF, CABG, ESRD on HD and recently discovered renal mass who presented to the ED for evaluation of shortness of breath. PENDING: I accepted care of this patient from the previous provider while waiting for evaluation and/or recommendations from: ED obs. Ultimately, the aforementioned service recommended admission for obs and dialysis. ED Medication Administration from 06/01/2025 1508 to 06/01/2025 2100 Date/Time Order Dose Route Action 06/01/2025 1905 EDT azithromycin (Zithromax) 500 mg in sodium chloride 0.9% 250 mL IVPB (vial adapter required) -- Intravenous Canceled Entry 06/01/20251921 EDT cefTRIAXone (Rocephin) 2 g in sodium chloride 0.9% 100 mL IVPB (vial adapter required) 2 g Intravenous New Bag 06/01/20251951 EDT cefTRIAXone (Rocephin) 2 g in sodium chloride 0.9% 100 mL IVPB (vial adapter required) 0 g Intravenous Stopped ED COURSE: ED Course as of 06/01/25 2100 Sat Jun 01, 2025 1710 Hemoglobin(!): 8.6 H and H low but not in need of transfusion [SH] 1806 Creatinine(!): 3.87 Likely secondary to ESRD and lack of dialysis [SH] 2018 SARS-CoV-2, Flu A, Flu B, and RSV - Rapid Hutchins negative [SH] 2019 XR Chest 1 View Moderate to large right pleural effusion and bilateral airspace disease, likely reflecting pulmonary edema. [SH] 2019 EKG now - STAT (adult) PACs and bradycardia [SH] ED Course User Index [SH] Jay Matthews T, DO Clinical Impressions as of 06/01/252099 Acute pulmonary edema (CMS/HCC) End-stage renal disease needing dialysis (CMS/HCC) Ultimately, this patient Was admitted (Admission) The primary encounter diagnosis was Acute pulmonary edema (CMS/HCC). A diagnosis of End-stage renal disease needing dialysis (CMS/HCC) was also pertinent to this visit.. Patient believed to require admission for the listed diagnoses. The ED Observation service was consulted for admission and was agreeable to admit to ED Observation. ED Prescriptions None Disposition Admit - Juan Jose Lanier MD Cosigned by Faiza Garvin MD at 06/02/2025 4:58 PM EDT Associated attestation - Faiza Garvin MD - 06/02/2025 4:58 PM EDT I saw and evaluated the patient with the resident/fellow. I discussed the case with the resident/fellow and agree with the findings and plan as documented. documented in this encounter Plan of Treatment Upcoming Encounters Date Type Department Care Team (Late st Contact Info) Description 08/20/2025 12:00 PM EST Office Visit [facility] [address], [address] [place] [address] Kaiden Harvey MD [address] [place] [address] 11/06/2025 9:15 AM EST Office Visit [facility] [address], [address] [place] [address] Joanna Bartlett MD [address] [place] [address] Scheduled Orders Name Type Priority Associated Diagnoses Orde r Schedule ECG Adult ECG Routine Chronic obstructive pulmonary disease with acute exacerbation (CMS/HCC) Ordered: 06/10/2025 Pulmonary function testing PFT Routine Chronic obstructive pulmonary disease with acute exacerbation (CMS/HCC) 1 Occurrences starting 06/10/2025 until 12/12/2026 Scheduled Referrals Name Type Priority Associated Diagnoses Orde r Schedule Discharge Ambulatory referral to [facility] Outpatient Referral Routine Acute pulmonary edema (CMS/HCC) 1 Occurrences starting 06/04/2025 until 12/06/2026 Ambulatory referral to External PCP Outpatient Referral Routine End-stage renal disease needing dialysis (CMS/HCC) Severe protein-calorie malnutrition (CMS/HCC) Hypertension, unspecified type Hypothyroidism, unspecified type Hyperlipidemia, unspecified hyperlipidemia type Anemia, unspecified type Mood disorder (CMS/HCC) 1 Occurrences starting 06/10/2025 until 12/12/2026 Discharge Ambulatory referral to Pulmonary Rehab Outpatient Referral Routine Acute hypoxic respiratory failure Chronic obstructive pulmonary disease with acute exacerbation (CMS/HCC) Ordered: 06/10/2025 Discharge Ambulatory referral to Cardiology Outpatient Referral Routine Coronary artery disease involving coronary bypass graft of 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 pectoris Chronic congestive heart failure, unspecified heart failure type (CMS/HCC) Expected: 06/10/2025 (Approximate), Expires: 12/12/2026 Discharge Ambulatory referral to Ophthalmology Outpatient Referral Routine History of glaucoma Expected: 06/10/2025 (Approximate), Expires: 12/12/2026 documented as of this encounter Goals Goal Patient Goal Type Associated Problems Recent Progress Patient-Stated? Author Patient will verbalize understanding of how heart failure affects the body Care Plan Heart Failure diagnosis knowledge deficit On track( 025 10:41 AM EDT) Baylee Ramirez RN Patient will verbalize understanding of how other conditions affect the heart Care Plan Heart Failure diagnosis knowledge deficit No Baylee Gracia RN Patient will be able to identify signs and symptoms of fluid retention Care Plan Fluid retention / overload Baylee Ramirez RN Patient will maintain management of sodium consumption Care Plan Sodium intake No Baylee Gracia RN Consistently take heart failure medication as prescribed Care Plan Heart failure medication adherence No Baylee Gracia RN Patient will engage in physical activity safely Care Plan Exercise regimen No Baylee Gracia RN Patient will not experience any symptoms of shortness of breath or body swelling over the next 3 months Care Plan Heart failure maintenance No Baylee Gracia RN Patient will verbalize understanding of heart failure progression Care Plan Heart failure progression and care needs No Baylee Gracia RN documented as of this encounter Procedures Procedure Name Priority Date/Time Associated Diagnosis Comments HEMODIALYSIS INPATIENT Routine 06/10/2025 9:13 AM EDT CBC WITH AUTO DIFFERENTIAL STAT 06/10/2025 4:24 AM EDT PHOSPHORUS, PLASMA STAT 06/10/2025 4: 24 AM EDT MAGNESIUM, PLASMA STAT 06/10/2025 4:2 4 AM EDT COMPREHENSIVE METABOLIC PANEL, PLASMA STAT 06/10/2025 4:24 AM EDT CBC WITH AUTO DIFFERENTIAL STAT 06/09/2025 4:35 AM EDT PHOSPHORUS, PLASMA STAT 06/09/2025 4: 35 AM EDT MAGNESIUM, PLASMA STAT 06/09/2025 4:3 5 AM EDT COMPREHENSIVE METABOLIC PANEL, PLASMA STAT 06/09/2025 4:35 AM EDT CBC WITH AUTO DIFFERENTIAL STAT 06/08/2025 4:05 AM EDT PHOSPHORUS, PLASMA STAT 06/08/2025 4: 05 AM EDT MAGNESIUM, PLASMA STAT 06/08/2025 4:0 5 AM EDT COMPREHENSIVE METABOLIC PANEL, PLASMA STAT 06/08/2025 4:05 AM EDT HEMODIALYSIS INPATIENT Routine 06/07/2025 7:26 AM EDT CBC WITH AUTO DIFFERENTIAL STAT 06/07/2025 5:07 AM EDT PHOSPHORUS, PLASMA STAT 06/07/2025 5: 07 AM EDT MAGNESIUM, PLASMA STAT 06/07/2025 5:0 7 AM EDT COMPREHENSIVE METABOLIC PANEL, PLASMA STAT 06/07/2025 5:07 AM EDT CBC WITH AUTO DIFFERENTIAL STAT 06/06/2025 2:49 AM EDT PHOSPHORUS, PLASMA STAT 06/06/2025 2: 49 AM EDT MAGNESIUM, PLASMA STAT 06/06/2025 2:4 9 AM EDT COMPREHENSIVE METABOLIC PANEL, PLASMA STAT 06/06/2025 2:49 AM EDT POCT GLUCOSE METER UNSOLICITED RESULTS Routine 06/05/2025 11:54 AM EDT POCT GLUCOSE METER UNSOLICITED RESULTS Routine 06/05/2025 10:42 AM EDT POCT GLUCOSE METER UNSOLICITED RESULTS Routine 06/05/2025 9:42 AM EDT POCT GLUCOSE METER UNSOLICITED RESULTS Routine 06/05/2025 9:06 AM EDT POCT GLUCOSE METER UNSOLICITED RESULTS Routine 06/05/2025 4:57 AM EDT POCT GLUCOSE METER UNSOLICITED RESULTS Routine 06/05/2025 3:59 AM EDT HEPATITIS B SURFACE ANTIBODY, QUANTITATIVE Routine 06/05/2025 2:21 AM EDT ACUTE HEPATITIS PANEL Routine 06/05/2025 2:21 AM EDT CBC WITH AUTO DIFFERENTIAL STAT 06/05/2025 2:21 AM EDT PHOSPHORUS, PLASMA STAT 06/05/2025 2: 21 AM EDT MAGNESIUM, PLASMA STAT 06/05/2025 2:2 1 AM EDT COMPREHENSIVE METABOLIC PANEL, PLASMA STAT 06/05/2025 2:21 AM EDT HEMODIALYSIS INPATIENT Routine 06/04/2025 2:57 PM EDT IR ANGIOGRAM ARTERIOVENOUS SHUNT Routine 06/04/2025 2:31 PM EDT ESRD (end stage renal disease) ([facility]) Unspecified complication of cardiac and vascular prosthetic device, implant and graft, subsequent encounter CBC WITH AUTO DIFFERENTIAL STAT 06/04/2025 2:56 AM EDT PHOSPHORUS, PLASMA STAT 06/04/2025 2: 56 AM EDT MAGNESIUM, PLASMA STAT 06/04/2025 2:5 6 AM EDT COMPREHENSIVE METABOLIC PANEL, PLASMA STAT 06/04/2025 2:56 AM EDT HEMOGLOBIN AND HEMATOCRIT, BLOOD Timed 06/03/2025 12:43 PM EDT CBC WITH AUTO DIFFERENTIAL STAT 06/03/2025 4:51 AM EDT PHOSPHORUS, PLASMA STAT 06/03/2025 4: 51 AM EDT MAGNESIUM, PLASMA STAT 06/03/2025 4:5 1 AM EDT COMPREHENSIVE METABOLIC PANEL, PLASMA STAT 06/03/2025 4:51 AM EDT HEMOGLOBIN AND HEMATOCRIT, BLOOD Routine 06/02/2025 5:50 PM EDT WOUND OSTOMY EVAL AND TREAT Routine 06/02/2025 12:27 PM EDT VAS US HEMODIALYSIS ACCESS DUPLEX STAT 06/02/2025 10:03 AM EDT ECHO, ADULT TRANSTHORACIC COMPLETE STAT 06/02/2025 7:40 AM EDT TSH REFLEX FT4 Add-On 06/02/2025 4:07 AM EDT CBC WITH AUTO DIFFERENTIAL STAT 06/02/2025 4:07 AM EDT FREE T4, PLASMA Routine 06/02/2025 4:07 AM EDT PHOSPHORUS, PLASMA STAT 06/02/2025 4: 07 AM EDT MAGNESIUM, PLASMA STAT 06/02/2025 4:0 7 AM EDT COMPREHENSIVE METABOLIC PANEL, PLASMA STAT 06/02/2025 4:07 AM EDT SARS-COV-2, FLU A, FLU B, AND RSV - RAPID STAT 06/01/2025 6:53 PM EDT BLOOD CULTURE (AEROBIC/ANAEROBIC SET) STAT 06/01/2025 6:52 PM EDT BLOOD CULTURE (AEROBIC/ANAEROBIC SET) STAT 06/01/2025 6:52 PM EDT XR CHEST 1 VIEW STAT 06/01/2025 5:10 PM EDT ECG ADULT STAT 06/01/2025 4:57 PM EDT N-TERMINAL PROBNP, PLASMA STAT Add-on 06/01/2025 4:47 PM EDT CBC W/O DIFFERENTIAL STAT 06/01/2025 4:47 PM EDT PHOSPHORUS, PLASMA STAT 06/01/2025 4: 47 PM EDT MAGNESIUM, PLASMA STAT 06/01/2025 4:4 7 PM EDT BLOOD GAS PANEL, VENOUS STAT 06/01/2025 4:47 PM EDT COMPREHENSIVE METABOLIC PANEL, PLASMA STAT 06/01/2025 4:47 PM EDT documented in this encounter Results * (ABNORMAL) CBC and Differential (06/10/2025 4:24 AM EDT) [facility] WBC Count 7.28 3.70 - 10.30 10*3/uL LAB HEMATOLOGY METHOD 06/10/2025 4:48 AM EDT [facility] RBC Count 3.10(L) 3.90 - 5.20 10*6/uL LAB HEMATOLOGY METHOD 06/10/2025 4:48 AM EDT [facility] HGB 8.1(L) 11.2 - 15.7 g/dL LAB HEMATOLOGY METHOD 06/10/2025 4:48 AM EDT [facility] HCT 29.1(L) 34.0 - 45.0 % LAB HEMATOLOGY METHOD 06/10/2025 4:48 AM EDT [facility] Platelet Count 64(L) 155 - 369 10*3/uL LAB HEMATOLOGY METHOD 06/10/2025 4:48 AM EDT [facility] MCV 94 79 - 98 fL LAB HEMATOLOGY METHOD 06/10/2025 4:48 AM EDT [facility] MCH 26.1 26.0 - 32.0 pg LAB HEMATOLOGY METHOD 06/10/2025 4:48 AM EDT [facility] MCHC 27.8(L) 30.7 - 35.5 g/dL LAB HEMATOLOGY METHOD 06/10/2025 4:48 AM EDT [facility] RDW 16.0(H) 11.5 - 14.5 % LAB HEMATOLOGY METHOD 06/10/2025 4:48 AM EDT [facility] MPV 12.1 8.8 - 12.5 fL LAB HEMATOLOGY METHOD 06/10/2025 4:48 AM EDT [facility] nRBC 0.0 <=0.0 per 100 WBCs LAB HEMATOLOGY METHOD 06/10/2025 4:48 AM EDT [facility] Differential Type Automated LAB HEMATOLOGY METHOD 06/10/2025 4:48 AM EDT [facility] Neutrophils % 79 % LAB HEMATOLOGY METHOD 06/10/2025 4:48 AM EDT [facility] Lymphocytes % 9 % LAB HEMATOLOGY METHOD 06/10/2025 4:48 AM EDT [facility] Monocytes % 7 % LAB HEMATOLOGY METHOD 06/10/2025 4:48 AM EDT [facility] Eosinophils % 3 % LAB HEMATOLOGY METHOD 06/10/2025 4:48 AM EDT [facility] Basophils % 1 % LAB HEMATOLOGY METHOD 06/10/2025 4:48 AM EDT [facility] Immature Granulocytes % 1 % LAB HEMATOLOGY METHOD 06/10/2025 4:48 AM EDT [facility] Neutrophils Absolute 5.88 1.60 - 6.10 10*3/uL LAB HEMATOLOGY METHOD 06/10/2025 4:48 AM EDT [facility] Lymphocytes Absolute 0.65(L) 1.20 - 3.90 10*3/uL LAB HEMATOLOGY METHOD 06/10/2025 4:48 AM EDT [facility] Monocytes Absolute 0.47 0.30 - 0.90 10*3/uL LAB HEMATOLOGY METHOD 06/10/2025 4:48 AM EDT [facility] Eosinophils Absolute 0.20 0.00 - 0.50 10*3/uL LAB HEMATOLOGY METHOD 06/10/2025 4:48 AM EDT [facility] Basophils Absolute 0.04 0.00 - 0.10 10*3/uL LAB HEMATOLOGY METHOD 06/10/2025 4:48 AM EDT [facility] Immature Granulocytes Absolute 0.04 0.00 - 0.06 10*3/uL LAB HEMATOLOGY METHOD 06/10/2025 4:48 AM EDT [facility] Blood Venous blood specimen / Unknown Venipuncture / Unknown 06/10/2025 4:24 AM EDT 06/10/2025 4:42 AM EDT [facility] - 06/10/2025 4:48 AM EDT Therapeutic decision making should be based on absolute values, rather than percentages. us Faiza Garvin MD LAB BLOOD ORDERABLES Final Re sult [facility] [address] [place] [address] * (ABNORMAL) Comprehensive Metabolic Panel, Plasma (06/10/2025 4:24 AM EDT) Glucose, Plasma 165(H) 74 - 99 mg/dL 06/10/2025 5:09 AM EDT [facility] BUN, Plasma 57(H) 7 - 21 mg/dL 06/10/2025 5:09 AM EDT [facility] Creatinine, Plasma 3.74(H) 0.60 - 1.10 mg/dL 06/10/2025 5:09 AM EDT [facility] BUN/Creatinine Ratio 15 06/10/2025 5:09 AM EDT [facility] Sodium, Plasma 136 136 - 145 mmol/L 06/10/2025 5:09 AM EDT [facility] Potassium, Plasma 4.1 3.6 - 4.9 mmol/L 06/10/2025 5:09 AM EDT [facility] Chloride, Plasma 99 97 - 107 mmol/L 06/10/2025 5:09 AM EDT [facility] CO2, Plasma 23 22 - 29 mmol/L 06/10/2025 5:09 AM EDT [facility] Anion Gap 14 6 - 16 mmol/L 06/10/2025 5:09 AM EDT [facility] Total Calcium, Plasma 8.2(L) 8.9 - 10.2 mg/dL 06/10/2025 5:09 AM EDT [facility] Total Protein 5.8(L) 6.3 - 7.9 g/dL 06/10/2025 5:09 AM EDT [facility] Albumin, Plasma 2.7(L) 3.5 - 5.2 g/dL 06/10/2025 5:09 AM EDT [facility] AST, Plasma 9(L) 10 - 35 U/L 06/10/2025 5:09 AM EDT [facility] ALT, Plasma <5(L) 10 - 35 U/L 06/10/2025 5:09 AM EDT [facility] Alkaline Phosphatase, Plasma 166(H) 46 - 142 U/L 06/10/2025 5:09 AM EDT [facility] Total Bilirubin, Plasma 0.4 0.2 - 1.1 mg/dL 06/10/2025 5:09 AM EDT [facility] eGFRcr 13.6 mL/min/1.7 3m*2 06/10/2025 5:09 AM EDT [facility] Comment:Reported eGFRcr in m L/min/1.73m2 is based the CKD-EPI 2020 equation that does not use a race coefficient. Blood Venous blood specimen / Unknown Venipuncture / Unknown 06/10/2025 4:24 AM EDT 06/10/2025 4:40 AM EDT us Faiza Garvin MD LAB BLOOD ORDERABLES Final Re sult Performing Organization Address City/[facility] Co de Phone Number [facility] [address] [place] [address] * Magnesium, Plasma (06/10/2025 4:24 AM EDT) Magnesium, Plasma 2.1 1.9 - 2.4 mg/dL 06/10/2025 5:09 AM EDT [facility] Blood Venous blood specimen / Unknown Venipuncture / Unknown 06/10/2025 4:24 AM EDT 06/10/2025 4:40 AM EDT us Faiza Garvin MD LAB BLOOD ORDERABLES Final Re sult Performing Organization Address City/[facility] Co de Phone Number [facility] [address] [place] [address] * (ABNORMAL) Phosphorus, Plasma (06/10/2025 4:24 AM EDT) Phosphorus, Plasma 4.6(H) 2.5 - 4.5 mg/dL 06/10/2025 5:09 AM EDT [facility] Blood Venous blood specimen / Unknown Venipuncture / Unknown 06/10/2025 4:24 AM EDT 06/10/2025 4:40 AM EDT us Faiza Garvin MD LAB BLOOD ORDERABLES Final Re sult [facility] [address] [place] [address] * (ABNORMAL) CBC and Differential (06/09/2025 4:35 AM EDT) WBC Count 7.05 3.70 - 10.30 10*3/uL LAB HEMATOLOGY METHOD 06/09/2025 5:46 AM EDT [facility] RBC Count 2.80(L) 3.90 - 5.20 10*6/uL LAB HEMATOLOGY METHOD 06/09/2025 5:46 AM EDT [facility] HGB 7.6(L) 11.2 - 15.7 g/dL LAB HEMATOLOGY METHOD 06/09/2025 5:46 AM EDT [facility] HCT 26.9(L) 34.0 - 45.0 % LAB HEMATOLOGY METHOD 06/09/2025 5:46 AM EDT [facility] Platelet Count 60(L) 155 - 369 10*3/uL LAB HEMATOLOGY METHOD 06/09/2025 5:46 AM EDT [facility] MCV 96 79 - 98 fL LAB HEMATOLOGY METHOD 06/09/2025 5:46 AM EDT [facility] MCH 27.1 26.0 - 32.0 pg LAB HEMATOLOGY METHOD 06/09/2025 5:46 AM EDT [facility] MCHC 28.3(L) 30.7 - 35.5 g/dL LAB HEMATOLOGY METHOD 06/09/2025 5:46 AM EDT [facility] RDW 15.9(H) 11.5 - 14.5 % LAB HEMATOLOGY METHOD 06/09/2025 5:46 AM EDT [facility] MPV LAB HEMATOLOGY METHOD 06/09/2025 5:46 AM EDT [facility] Comment:Not Measured nRBC 0.0 <=0.0 per 100 WBCs LAB HEMATOLOGY METHOD 06/09/2025 5:46 AM EDT [facility] Differential Type Automated LAB HEMATOLOGY METHOD 06/09/2025 5:46 AM EDT [facility] Neutrophils % 79 % LAB HEMATOLOGY METHOD 06/09/2025 5:46 AM EDT [facility] Lymphocytes % 9 % LAB HEMATOLOGY METHOD 06/09/2025 5:46 AM EDT [facility] Monocytes % 7 % LAB HEMATOLOGY METHOD 06/09/2025 5:46 AM EDT [facility] Eosinophils % 3 % LAB HEMATOLOGY METHOD 06/09/2025 5:46 AM EDT [facility] Basophils % 1 % LAB HEMATOLOGY METHOD 06/09/2025 5:46 AM EDT [facility] Immature Granulocytes % 1 % LAB HEMATOLOGY METHOD 06/09/2025 5:46 AM EDT [facility] Neutrophils Absolute 5.60 1.60 - 6.10 10*3/uL LAB HEMATOLOGY METHOD 06/09/2025 5:46 AM EDT [facility] Lymphocytes Absolute 0.62(L) 1.20 - 3.90 10*3/uL LAB HEMATOLOGY METHOD 06/09/2025 5:46 AM EDT [facility] Monocytes Absolute 0.50 0.30 - 0.90 10*3/uL LAB HEMATOLOGY METHOD 06/09/2025 5:46 AM EDT [facility] Eosinophils Absolute 0.21 0.00 - 0.50 10*3/uL LAB HEMATOLOGY METHOD 06/09/2025 5:46 AM EDT [facility] Basophils Absolute 0.04 0.00 - 0.10 10*3/uL LAB HEMATOLOGY METHOD 06/09/2025 5:46 AM EDT [facility] Immature Granulocytes Absolute 0.08(H) 0.00 - 0.06 10*3/uL LAB HEMATOLOGY METHOD 06/09/2025 5:46 AM EDT [facility] Blood Venous blood specimen / Unknown Venipuncture / Unknown 06/09/2025 4:35 AM EDT 06/09/2025 5:34 AM EDT [facility] - 06/09/2025 5:46 AM EDT Therapeutic decision making should be based on absolute values, rather than percentages. us Faiza Garvin MD LAB BLOOD ORDERABLES Final Re sult [facility] [address] [place] [address] * (ABNORMAL) Comprehensive Metabolic Panel, Plasma (06/09/2025 4:35 AM EDT) Glucose, Plasma 100(H) 74 - 99 mg/dL 06/09/2025 6:01 AM EDT [facility] BUN, Plasma 47(H) 7 - 21 mg/dL 06/09/2025 6:01 AM EDT [facility] Creatinine, Plasma 3.30(H) 0.60 - 1.10 mg/dL 06/09/2025 6:01 AM EDT [facility] BUN/Creatinine Ratio 14 06/09/2025 6:01 AM EDT [facility] Sodium, Plasma 136 136 - 145 mmol/L 06/09/2025 6:01 AM EDT [facility] Potassium, Plasma 3.8 3.6 - 4.9 mmol/L 06/09/2025 6:01 AM EDT [facility] Chloride, Plasma 97 97 - 107 mmol/L 06/09/2025 6:01 AM EDT [facility] CO2, Plasma 24 22 - 29 mmol/L 06/09/2025 6:01 AM EDT [facility] Anion Gap 15 6 - 16 mmol/L 06/09/2025 6:01 AM EDT [facility] Total Calcium, Plasma 8.4(L) 8.9 - 10.2 mg/dL 06/09/2025 6:01 AM EDT [facility] Total Protein 5.9(L) 6.3 - 7.9 g/dL 06/09/2025 6:01 AM EDT [facility] Albumin, Plasma 3.0(L) 3.5 - 5.2 g/dL 06/09/2025 6:01 AM EDT [facility] AST, Plasma 14 10 - 35 U/L 06/09/2025 6:01 AM EDT [facility] Comment:Hemolyzed, result ma y be falsely increased. ALT, Plasma 5(L) 10 - 35 U/L 06/09/2025 6:01 AM EDT [facility] Alkaline Phosphatase, Plasma 171(H) 46 - 142 U/L 06/09/2025 6:01 AM EDT [facility] Total Bilirubin, Plasma 0.4 0.2 - 1.1 mg/dL 06/09/2025 6:01 AM EDT [facility] eGFRcr 15.8 mL/min/1.7 3m*2 06/09/2025 6:01 AM EDT [facility] Comment:Reported eGFRcr in m L/min/1.73m2 is based the CKD-EPI 2020 equation that does not use a race coefficient. Blood Venous blood specimen / Unknown Venipuncture / Unknown 06/09/2025 4:35 AM EDT 06/09/2025 5:32 AM EDT Result Alex Garvin MD LAB BLOOD ORDERABLES Final Re sult Performing Organization Address City/[facility]/ZIP Co de Phone Number [facility] [address] [place] [address] * Magnesium, Plasma (06/09/2025 4:35 AM EDT) Magnesium, Plasma 2.1 1.9 - 2.4 mg/dL 06/09/2025 6:01 AM EDT [facility] Blood Venous blood specimen / Unknown Venipuncture / Unknown 06/09/2025 4:35 AM EDT 06/09/2025 5:32 AM EDT Result Alex Garvin MD LAB BLOOD ORDERABLES Final Re sult [facility] LAB [address] [place] [address] * Phosphorus, Plasma (06/09/2025 4:35 AM EDT) Phosphorus, Plasma 4.2 2.5 - 4.5 mg/dL 06/09/2025 6:01 AM EDT [facility] Blood Venous blood specimen / Unknown Venipuncture / Unknown 06/09/2025 4:35 AM EDT 06/09/2025 5:32 AM EDT Result Alex Garvin MD LAB BLOOD ORDERABLES Final Re sult [facility] [address] [place] [address] * (ABNORMAL) CBC and Differential (06/08/2025 4:05 AM EDT) WBC Count 6.33 3.70 - 10.30 10*3/uL LAB HEMATOLOGY METHOD 06/08/2025 4:34 AM EDT [facility] RBC Count 2.78(L) 3.90 - 5.20 10*6/uL LAB HEMATOLOGY METHOD 06/08/2025 4:34 AM EDT [facility] HGB 7.3(L) 11.2 - 15.7 g/dL LAB HEMATOLOGY METHOD 06/08/2025 4:34 AM EDT [facility] HCT 26.0(L) 34.0 - 45.0 % LAB HEMATOLOGY METHOD 06/08/2025 4:34 AM EDT [facility] Platelet Count 51(L) 155 - 369 10*3/uL LAB HEMATOLOGY METHOD 06/08/2025 4:34 AM EDT [facility] MCV 94 79 - 98 fL LAB HEMATOLOGY METHOD 06/08/2025 4:34 AM EDT [facility] MCH 26.3 26.0 - 32.0 pg LAB HEMATOLOGY METHOD 06/08/2025 4:34 AM EDT [facility] MCHC 28.1(L) 30.7 - 35.5 g/dL LAB HEMATOLOGY METHOD 06/08/2025 4:34 AM EDT [facility] RDW 15.9(H) 11.5 - 14.5 % LAB HEMATOLOGY METHOD 06/08/2025 4:34 AM EDT [facility] MPV LAB HEMATOLOGY METHOD 06/08/2025 4:34 AM EDT [facility] Comment:Not Measured nRBC 0.0 <=0.0 per 100 WBCs LAB HEMATOLOGY METHOD 06/08/2025 4:34 AM EDT [facility] Differential Type Automated LAB HEMATOLOGY METHOD 06/08/2025 4:34 AM EDT [facility] Neutrophils % 82 % LAB HEMATOLOGY METHOD 06/08/2025 4:34 AM EDT [facility] Lymphocytes % 7 % LAB HEMATOLOGY METHOD 06/08/2025 4:34 AM EDT [facility] Monocytes % 7 % LAB HEMATOLOGY METHOD 06/08/2025 4:34 AM EDT [facility] Eosinophils % 3 % LAB HEMATOLOGY METHOD 06/08/2025 4:34 AM EDT [facility] Basophils % 0 % LAB HEMATOLOGY METHOD 06/08/2025 4:34 AM EDT [facility] Immature Granulocytes % 1 % LAB HEMATOLOGY METHOD 06/08/2025 4:34 AM EDT [facility] Neutrophils Absolute 5.17 1.60 - 6.10 10*3/uL LAB HEMATOLOGY METHOD 06/08/2025 4:34 AM EDT [facility] Lymphocytes Absolute 0.46(L) 1.20 - 3.90 10*3/uL LAB HEMATOLOGY METHOD 06/08/2025 4:34 AM EDT [facility] Monocytes Absolute 0.46 0.30 - 0.90 10*3/uL LAB HEMATOLOGY METHOD 06/08/2025 4:34 AM EDT [facility] Eosinophils Absolute 0.16 0.00 - 0.50 10*3/uL LAB HEMATOLOGY METHOD 06/08/2025 4:34 AM EDT [facility] Basophils Absolute 0.02 0.00 - 0.10 10*3/uL LAB HEMATOLOGY METHOD 06/08/2025 4:34 AM EDT [facility] Immature Granulocytes Absolute 0.06 0.00 - 0.06 10*3/uL LAB HEMATOLOGY METHOD 06/08/2025 4:34 AM EDT [facility] Blood Venous blood specimen / Unknown Venipuncture / Unknown 06/08/2025 4:05 AM EDT 06/08/2025 4:22 AM EDT Narrative [facility] - 06/08/2025 4:34 AM EDT Therapeutic decision making should be based on absolute values, rather than percentages. us Faiza Garvin MD LAB BLOOD ORDERABLES Final Re sult [facility] [address] [place] [address] * (ABNORMAL) Comprehensive Metabolic Panel, Plasma (06/08/2025 4:05 AM EDT) [facility] Glucose, Plasma 95 74 - 99 mg/dL 06/08/2025 4:54 AM EDT [facility] BUN, Plasma 40(H) 7 - 21 mg/dL 06/08/2025 4:54 AM EDT [facility] Creatinine, Plasma 2.83(H) 0.60 - 1.10 mg/dL 06/08/2025 4:54 AM EDT [facility] BUN/Creatinine Ratio 14 06/08/2025 4:54 AM EDT [facility] Sodium, Plasma 135(L) 136 - 145 mmol/L 06/08/2025 4:54 AM EDT [facility] Potassium, Plasma 4.7 3.6 - 4.9 mmol/L 06/08/2025 4:54 AM EDT [facility] Comment:Hemolyzed, result ma y be falsely increased. Chloride, Plasma 100 97 - 107 mmol/L 06/08/2025 4:54 AM EDT [facility] CO2, Plasma 25 22 - 29 mmol/L 06/08/2025 4:54 AM EDT [facility] Anion Gap 10 6 - 16 mmol/L 06/08/2025 4:54 AM EDT [facility] Total Calcium, Plasma 8.2(L) 8.9 - 10.2 mg/dL 06/08/2025 4:54 AM EDT [facility] Total Protein 6.0(L) 6.3 - 7.9 g/dL 06/08/2025 4:54 AM EDT [facility] Albumin, Plasma 2.8(L) 3.5 - 5.2 g/dL 06/08/2025 4:54 AM EDT [facility] AST, Plasma 28 10 - 35 U/L 06/08/2025 4:54 AM EDT [facility] Comment:Hemolyzed, result ma y be falsely increased. ALT, Plasma 6(L) 10 - 35 U/L 06/08/2025 4:54 AM EDT [facility] Alkaline Phosphatase, Plasma 162(H) 46 - 142 U/L 06/08/2025 4:54 AM EDT [facility] Total Bilirubin, Plasma 0.5 0.2 - 1.1 mg/dL 06/08/2025 4:54 AM EDT [facility] eGFRcr 19.0 mL/min/1.7 3m*2 06/08/2025 4:54 AM EDT [facility] Comment:Reported eGFRcr in m L/min/1.73m2 is based the CKD-EPI 2020 equation that does not use a race coefficient. Blood Venous blood specimen / Unknown Venipuncture / Unknown 06/08/2025 4:05 AM EDT 06/08/2025 4:11 AM EDT Result Alex Garvin MD LAB BLOOD ORDERABLES Final Re sult Performing Organization Address City/[facility]/ZIP Co de Phone Number [facility] [address] [place] [address] * Magnesium, Plasma (06/08/2025 4:05 AM EDT) Magnesium, Plasma 2.0 1.9 - 2.4 mg/dL 06/08/2025 4:54 AM EDT [facility] Blood Venous blood specimen / Unknown Venipuncture / Unknown 06/08/2025 4:05 AM EDT 06/08/2025 4:11 AM EDT Result Alex Garvin MD LAB BLOOD ORDERABLES Final Re sult Performing Organization Address [facility] Co de Phone Number [facility] [address] [place] [address] * Phosphorus, Plasma (06/08/2025 4:05 AM EDT) Phosphorus, Plasma 4.0 2.5 - 4.5 mg/dL 06/08/2025 4:54 AM EDT [facility] Blood Venous blood specimen / Unknown Venipuncture / Unknown 06/08/2025 4:05 AM EDT 06/08/2025 4:11 AM EDT Result Alex Garvin MD LAB BLOOD ORDERABLES Final Re sult Performing Organization Address City/[facility]/ZIP Co de Phone Number [facility] [address] [place] [address], [place] [address] * (ABNORMAL) CBC and Differential (06/07/2025 5:07 AM EDT) WBC Count 6.72 3.70 - 10.30 10*3/uL LAB HEMATOLOGY METHOD 06/07/2025 5:43 AM EDT [facility] RBC Count 2.99(L) 3.90 - 5.20 10*6/uL LAB HEMATOLOGY METHOD 06/07/2025 5:43 AM EDT [facility] HGB 7.8(L) 11.2 - 15.7 g/dL LAB HEMATOLOGY METHOD 06/07/2025 5:43 AM EDT [facility] HCT 28.4(L) 34.0 - 45.0 % LAB HEMATOLOGY METHOD 06/07/2025 5:43 AM EDT [facility] Platelet Count 43(L) 155 - 369 10*3/uL LAB HEMATOLOGY METHOD 06/07/2025 5:43 AM EDT [facility] MCV 95 79 - 98 fL LAB HEMATOLOGY METHOD 06/07/2025 5:43 AM EDT [facility] MCH 26.1 26.0 - 32.0 pg LAB HEMATOLOGY METHOD 06/07/2025 5:43 AM EDT [facility] MCHC 27.5(L) 30.7 - 35.5 g/dL LAB HEMATOLOGY METHOD 06/07/2025 5:43 AM EDT [facility] RDW 15.9(H) 11.5 - 14.5 % LAB HEMATOLOGY METHOD 06/07/2025 5:43 AM EDT [facility] MPV LAB HEMATOLOGY METHOD 06/07/2025 5:43 AM EDT [facility] Comment:Not Measured nRBC 0.0 <=0.0 per 100 WBCs LAB HEMATOLOGY METHOD 06/07/2025 5:43 AM EDT [facility] Differential Type Automated LAB HEMATOLOGY METHOD 06/07/2025 5:43 AM EDT [facility] Neutrophils % 79 % LAB HEMATOLOGY METHOD 06/07/2025 5:43 AM EDT [facility] Lymphocytes % 9 % LAB HEMATOLOGY METHOD 06/07/2025 5:43 AM EDT [facility] Monocytes % 8 % LAB HEMATOLOGY METHOD 06/07/2025 5:43 AM EDT [facility] Eosinophils % 3 % LAB HEMATOLOGY METHOD 06/07/2025 5:43 AM EDT [facility] Basophils % 0 % LAB HEMATOLOGY METHOD 06/07/2025 5:43 AM EDT [facility] Immature Granulocytes % 1 % LAB HEMATOLOGY METHOD 06/07/2025 5:43 AM EDT [facility] Neutrophils Absolute 5.35 1.60 - 6.10 10*3/uL LAB HEMATOLOGY METHOD 06/07/2025 5:43 AM EDT [facility] Lymphocytes Absolute 0.57(L) 1.20 - 3.90 10*3/uL LAB HEMATOLOGY METHOD 06/07/2025 5:43 AM EDT [facility] Monocytes Absolute 0.55 0.30 - 0.90 10*3/uL LAB HEMATOLOGY METHOD 06/07/2025 5:43 AM EDT [facility] Eosinophils Absolute 0.17 0.00 - 0.50 10*3/uL LAB HEMATOLOGY METHOD 06/07/2025 5:43 AM EDT [facility] Basophils Absolute 0.03 0.00 - 0.10 10*3/uL LAB HEMATOLOGY METHOD 06/07/2025 5:43 AM EDT [facility] Immature Granulocytes Absolute 0.05 0.00 - 0.06 10*3/uL LAB HEMATOLOGY METHOD 06/07/2025 5:43 AM EDT [facility] Blood Venous blood specimen / Unknown Venipuncture / Unknown 06/07/2025 5:07 AM EDT 06/07/2025 5:27 AM EDT Narrative [facility] - 06/07/2025 5:43 AM EDT Therapeutic decision making should be based on absolute values, rather than percentages. us Faiza Garvin MD LAB BLOOD ORDERABLES Final Re sult [facility] [address] [place] [address] * (ABNORMAL) Comprehensive Metabolic Panel, Plasma (06/07/2025 5:07 AM EDT) Glucose, Plasma 90 74 - 99 mg/dL 06/07/2025 5:46 AM EDT [facility] BUN, Plasma 64(H) 7 - 21 mg/dL 06/07/2025 5:46 AM EDT [facility] Creatinine, Plasma 4.03(H) 0.60 - 1.10 mg/dL 06/07/2025 5:46 AM EDT [facility] BUN/Creatinine Ratio 16 06/07/2025 5:46 AM EDT [facility] Sodium, Plasma 139 136 - 145 mmol/L 06/07/2025 5:46 AM EDT [facility] Potassium, Plasma 4.4 3.6 - 4.9 mmol/L 06/07/2025 5:46 AM EDT [facility] Chloride, Plasma 99 97 - 107 mmol/L 06/07/2025 5:46 AM EDT [facility] CO2, Plasma 24 22 - 29 mmol/L 06/07/2025 5:46 AM EDT [facility] Anion Gap 16 6 - 16 mmol/L 06/07/2025 5:46 AM EDT [facility] Total Calcium, Plasma 8.4(L) 8.9 - 10.2 mg/dL 06/07/2025 5:46 AM EDT [facility] Total Protein 6.0(L) 6.3 - 7.9 g/dL 06/07/2025 5:46 AM EDT [facility] Albumin, Plasma 3.1(L) 3.5 - 5.2 g/dL 06/07/2025 5:46 AM EDT [facility] AST, Plasma 12 10 - 35 U/L 06/07/2025 5:46 AM EDT [facility] ALT, Plasma <5(L) 10 - 35 U/L 06/07/2025 5:46 AM EDT [facility] Alkaline Phosphatase, Plasma 173(H) 46 - 142 U/L 06/07/2025 5:46 AM EDT [facility] Total Bilirubin, Plasma 0.4 0.2 - 1.1 mg/dL 06/07/2025 5:46 AM EDT [facility] eGFRcr 12.4 mL/min/1.7 3m*2 06/07/2025 5:46 AM EDT [facility] Comment:Reported eGFRcr in m L/min/1.73m2 is based the CKD-EPI 2020 equation that does not use a race coefficient. Blood Venous blood specimen / Unknown Venipuncture / Unknown 06/07/2025 5:07 AM EDT 06/07/2025 5:18 AM EDT us Faiza Garvin MD LAB BLOOD ORDERABLES Final Re sult Performing Organization Address City/[facility]/ZIP Co de Phone Number [facility] [address] [place] [address] * Magnesium, Plasma (06/07/2025 5:07 AM EDT) Magnesium, Plasma 2.2 1.9 - 2.4 mg/dL 06/07/2025 5:46 AM EDT [facility] Blood Venous blood specimen / Unknown Venipuncture / Unknown 06/07/2025 5:07 AM EDT 06/07/2025 5:18 AM EDT us Faiza Garvin MD LAB BLOOD ORDERABLES Final Re sult Performing Organization Address [facility] [place] [address] * (ABNORMAL) Phosphorus, Plasma (06/07/2025 5:07 AM EDT) Phosphorus, Plasma 5.1(H) 2.5 - 4.5 mg/dL 06/07/2025 5:46 AM EDT [facility] Blood Venous blood specimen / Unknown Venipuncture / Unknown 06/07/2025 5:07 AM EDT 06/07/2025 5:18 AM EDT us Faiza Garvin MD LAB BLOOD ORDERABLES Final Re sult Performing Organization Address City/[facility] Co de Phone Number [facility] [address] [place] [address] * (ABNORMAL) CBC and Differential (06/06/2025 2:49 AM EDT) WBC Count 6.74 3.70 - 10.30 10*3/uL LAB HEMATOLOGY METHOD 06/06/2025 3:30 AM EDT [facility] RBC Count 2.72(L) 3.90 - 5.20 10*6/uL LAB HEMATOLOGY METHOD 06/06/2025 3:30 AM EDT [facility] HGB 7.4(L) 11.2 - 15.7 g/dL LAB HEMATOLOGY METHOD 06/06/2025 3:30 AM EDT [facility] HCT 26.2(L) 34.0 - 45.0 % LAB HEMATOLOGY METHOD 06/06/2025 3:30 AM EDT [facility] Platelet Count 45(L) 155 - 369 10*3/uL LAB HEMATOLOGY METHOD 06/06/2025 3:30 AM EDT [facility] MCV 96 79 - 98 fL LAB HEMATOLOGY METHOD 06/06/2025 3:30 AM EDT [facility] MCH 27.2 26.0 - 32.0 pg LAB HEMATOLOGY METHOD 06/06/2025 3:30 AM EDT [facility] MCHC 28.2(L) 30.7 - 35.5 g/dL LAB HEMATOLOGY METHOD 06/06/2025 3:30 AM EDT [facility] RDW 15.8(H) 11.5 - 14.5 % LAB HEMATOLOGY METHOD 06/06/2025 3:30 AM EDT [facility] MPV LAB HEMATOLOGY METHOD 06/06/2025 3:30 AM EDT [facility] Comment:Not Measured nRBC 0.0 <=0.0 per 100 WBCs LAB HEMATOLOGY METHOD 06/06/2025 3:30 AM EDT [facility] Differential Type Automated LAB HEMATOLOGY METHOD 06/06/2025 3:30 AM EDT [facility] Neutrophils % 79 % LAB HEMATOLOGY METHOD 06/06/2025 3:30 AM EDT [facility] Lymphocytes % 9 % LAB HEMATOLOGY METHOD 06/06/2025 3:30 AM EDT [facility] Monocytes % 9 % LAB HEMATOLOGY METHOD 06/06/2025 3:30 AM EDT [facility] Eosinophils % 2 % LAB HEMATOLOGY METHOD 06/06/2025 3:30 AM EDT [facility] Basophils % 0 % LAB HEMATOLOGY METHOD 06/06/2025 3:30 AM EDT [facility] Immature Granulocytes % 1 % LAB HEMATOLOGY METHOD 06/06/2025 3:30 AM EDT [facility] Neutrophils Absolute 5.31 1.60 - 6.10 10*3/uL LAB HEMATOLOGY METHOD 06/06/2025 3:30 AM EDT [facility] Lymphocytes Absolute 0.63(L) 1.20 - 3.90 10*3/uL LAB HEMATOLOGY METHOD 06/06/2025 3:30 AM EDT [facility] Monocytes Absolute 0.57 0.30 - 0.90 10*3/uL LAB HEMATOLOGY METHOD 06/06/2025 3:30 AM EDT [facility] Eosinophils Absolute 0.15 0.00 - 0.50 10*3/uL LAB HEMATOLOGY METHOD 06/06/2025 3:30 AM EDT [facility] Basophils Absolute 0.02 0.00 - 0.10 10*3/uL LAB HEMATOLOGY METHOD 06/06/2025 3:30 AM EDT [facility] Immature Granulocytes Absolute 0.06 0.00 - 0.06 10*3/uL LAB HEMATOLOGY METHOD 06/06/2025 3:30 AM EDT [facility] Blood Venous blood specimen / Unknown Venipuncture / Unknown 06/06/2025 2:49 AM EDT 06/06/2025 3:08 AM EDT Narrative [facility] - 06/06/2025 3:30 AM EDT Therapeutic decision making should be based on absolute values, rather than percentages. us Faiza Garvin MD LAB BLOOD ORDERABLES Final Re sult [facility] [address] [place] [address] * (ABNORMAL) Comprehensive Metabolic Panel, Plasma (06/06/2025 2:49 AM EDT) Glucose, Plasma 134(H) 74 - 99 mg/dL 06/06/2025 3:35 AM EDT [facility] BUN, Plasma 58(H) 7 - 21 mg/dL 06/06/2025 3:35 AM EDT [facility] Creatinine, Plasma 3.74(H) 0.60 - 1.10 mg/dL 06/06/2025 3:35 AM EDT [facility] BUN/Creatinine Ratio 16 06/06/2025 3:35 AM EDT [facility] Sodium, Plasma 137 136 - 145 mmol/L 06/06/2025 3:35 AM EDT [facility] Potassium, Plasma 4.0 3.6 - 4.9 mmol/L 06/06/2025 3:35 AM EDT [facility] Chloride, Plasma 97 97 - 107 mmol/L 06/06/2025 3:35 AM EDT [facility] CO2, Plasma 24 22 - 29 mmol/L 06/06/2025 3:35 AM EDT [facility] Anion Gap 16 6 - 16 mmol/L 06/06/2025 3:35 AM EDT [facility] Total Calcium, Plasma 8.3(L) 8.9 - 10.2 mg/dL 06/06/2025 3:35 AM EDT [facility] Total Protein 5.8(L) 6.3 - 7.9 g/dL 06/06/2025 3:35 AM EDT [facility] Albumin, Plasma 2.9(L) 3.5 - 5.2 g/dL 06/06/2025 3:35 AM EDT [facility] AST, Plasma 13 10 - 35 U/L 06/06/2025 3:35 AM EDT [facility] ALT, Plasma <5(L) 10 - 35 U/L 06/06/2025 3:35 AM EDT [facility] Alkaline Phosphatase, Plasma 171(H) 46 - 142 U/L 06/06/2025 3:35 AM EDT [facility] Total Bilirubin, Plasma 0.3 0.2 - 1.1 mg/dL 06/06/2025 3:35 AM EDT [facility] eGFRcr 13.6 mL/min/1.7 3m*2 06/06/2025 3:35 AM EDT [facility] Comment:Reported eGFRcr in m L/min/1.73m2 is based the CKD-EPI 2020 equation that does not use a race coefficient. Blood Venous blood specimen / Unknown Venipuncture / Unknown 06/06/2025 2:49 AM EDT 06/06/2025 3:08 AM EDT us Faiza Garvin MD LAB BLOOD ORDERABLES Final Re sult [facility] [address] [place] [address] * Magnesium, Plasma (06/06/2025 2:49 AM EDT) Pathologist [facility] Magnesium, Plasma 2.2 1.9 - 2.4 mg/dL 06/06/2025 3:35 AM EDT [facility] Blood Venous blood specimen / Unknown Venipuncture / Unknown 06/06/2025 2:49 AM EDT 06/06/2025 3:08 AM EDT us Faiza Garvin MD LAB BLOOD ORDERABLES Final Re sult Performing Organization Address [facility]/ZIP Co de Phone Number [facility] [address] [place] [address] * (ABNORMAL) Phosphorus, Plasma (06/06/2025 2:49 AM EDT) [facility] Phosphorus, Plasma 4.7(H) 2.5 - 4.5 mg/dL 06/06/2025 3:35 AM EDT [facility] Blood Venous blood specimen / Unknown Venipuncture / Unknown 06/06/2025 2:49 AM EDT 06/06/2025 3:08 AM EDT us Faiza Garvin MD LAB BLOOD ORDERABLES Final Re sult Performing Organization Address City/[facility]/[place] [address] * (ABNORMAL) POCT glucose meter (06/05/2025 11:54 AM EDT) Pathologist [facility] POCT Glucose 127(H) 74 - 99 mg/dL 06/05/2025 11:[address] [facility] Comment:Accuracy of a glucos e result obtained from a capillary whole blood specimen relies upon adequate, non-compromised capillary blood flow. If the capillary glucose result is not consistent with the patient's clinical signs and symptoms, glucose testing should be repeated with either an arterial or venous sample on the glucometer or sent to the main labortory for testing. Comment 06/05/2025 11:56 AM EDT [facility] Director Intelligence Analysis Programs ID Milagros Lopez 06/05/2025 11:56 AM EDT HEALTH[facility]ARE LAB Device ID [id number] 06/05/2025 11:56 AM EDT [facility] LAB Specimen Type POC Capillary 06/05/2025 11:56 AM EDT [facility] Blood Capillary blood specimen / Unknown 06/05/2025 11:54 AM EDT 06/05/2025 11:56 AM EDT Mayra Rogers MD LAB POINT OF CARE TE ST DOCKED DEVICE UNSOLICITED RESULTS Final Result Performing Organization Address City/State/[facility] de Phone Number [facility]ALTH[facility] [address] [place] [address] * (ABNORMAL) POCT glucose meter (06/05/2025 10:42 AM EDT) [facility] Signature POCT Glucose 102(H) 74 - 99 mg/dL 06/05/2025 10:44 AM EDT [facility] Comment:Accuracy of a glucos e result obtained from a capillary whole blood specimen relies upon adequate, non-compromised capillary blood flow. If the capillary glucose result is not consistent with the patient's clinical signs and symptoms, glucose testing should be repeated with either an arterial or venous sample on the glucometer or sent to the main labortory for testing. Comment 06/05/2025 10:44 AM EDT [facility]ALTH[facility]ARE LAB Director Intelligence Analysis Programs ID Milagros Lopez 06/05/2025 10:44 AM EDT HEALTHCARE LAB Device ID [id number] 06/05/2025 10:44 AM EDT [facility] LAB Specimen Type POC Capillary 06/05/2025 10:44 AM EDT [facility] Blood Capillary blood specimen / Unknown 06/05/2025 10:42 AM EDT 06/05/2025 10:44 AM EDT us Mayra Rogers MD LAB POINT OF CARE TE ST DOCKED DEVICE UNSOLICITED RESULTS Final Result Performing Organization Address City/[facility]/ZIP Co de Phone Number [facility] [address] [place] [address] * POCT glucose meter (06/05/2025 9:42 AM EDT) [facility] POCT Glucose 89 74 - 99 mg/dL 06/05/2025 9:44 AM EDT [facility] Comment:Accuracy of a glucos e result obtained from a capillary whole blood specimen relies upon adequate, non-compromised capillary blood flow. If the capillary glucose result is not consistent with the patient's clinical signs and symptoms, glucose testing should be repeated with either an arterial or venous sample on the glucometer or sent to the main labortory for testing. Comment 06/05/2025 9:44 AM EDT [facility] Director Intelligence Analysis Programs ID Milagros Lopez 06/05/2025 9:44 AM EDT HEALTHCARE LAB Device ID [id number] 06/05/2025 9:44 AM EDT [facility] Specimen Type POC Capillary 06/05/2025 9:[address] [facility] Blood Capillary blood specimen / Unknown 06/05/2025 9:42 AM EDT 06/05/2025 9:44 AM EDT Mayra Rogers MD LAB POINT OF CARE TE ST DOCKED DEVICE UNSOLICITED RESULTS Final Result Performing Organization Address [facility] Co de Phone Number [facility] [address] [place] [address] * POCT glucose meter (06/05/2025 9:06 AM EDT) [facility] POCT Glucose 87 74 - 99 mg/dL 06/05/2025 9:08 AM EDT [facility] Comment:Accuracy of a glucos e result obtained from a capillary whole blood specimen relies upon adequate, non-compromised capillary blood flow. If the capillary glucose result is not consistent with the patient's clinical signs and symptoms, glucose testing should be repeated with either an arterial or venous sample on the glucometer or sent to the main labortory for testing. Comment 06/05/2025 9:08 AM EDT [facility] Director Intelligence Analysis Programs ID Milagros Lopez 06/05/2025 9:08 AM EDT [facility] Device ID [id number] 06/05/2025 9:08 AM EDT [facility] Specimen Type POC Capillary 06/05/2025 9:08 AM EDT [facility] Blood Capillary blood specimen / Unknown 06/05/2025 9:06 AM EDT 06/05/2025 9:08 AM EDT Mayra Rogers MD LAB POINT OF CARE TE ST DOCKED DEVICE UNSOLICITED RESULTS Final Result Performing Organization Address City/[facility] Co de Phone Number [facility] [address] [place] [address] * (ABNORMAL) POCT glucose meter (06/05/2025 4:57 AM EDT) [facility] POCT Glucose 105(H) 74 - 99 mg/dL 06/05/2025 4:59 AM EDT [facility] Comment:Accuracy of a glucos e result obtained from a capillary whole blood specimen relies upon adequate, non-compromised capillary blood flow. If the capillary glucose result is not consistent with the patient's clinical signs and symptoms, glucose testing should be repeated with either an arterial or venous sample on the glucometer or sent to the main labortory for testing. Comment 06/05/2025 4:59 AM EDT [facility] Director Intelligence Analysis Programs ID Florence Phelan 06/05/2025 4:59 AM EDT [facility] Device ID [id number] 06/05/2025 4:59 AM EDT [facility] Specimen Type POC Capillary 06/05/2025 4:59 AM EDT [facility] Blood Capillary blood specimen / Unknown 06/05/2025 4:57 AM EDT 06/05/2025 4:59 AM EDT Mayra Rogers MD LAB POINT OF CARE TE ST DOCKED DEVICE UNSOLICITED RESULTS Final Result Performing Organization Address City/[facility] Co de Phone Number [facility] [address] [place] [address] * (ABNORMAL) POCT glucose meter (06/05/2025 3:59 AM EDT) Pathologist [facility] POCT Glucose 61(L) 74 - 99 mg/dL 06/05/2025 4:01 AM EDT [facility] Comment:Accuracy of a glucos e result obtained from a capillary whole blood specimen relies upon adequate, non-compromised capillary blood flow. If the capillary glucose result is not consistent with the patient's clinical signs and symptoms, glucose testing should be repeated with either an arterial or venous sample on the glucometer or sent to the main labortory for testing. Comment 06/05/2025 4:01 AM EDT [facility] Director Intelligence Analysis Programs ID Florence Phelan 06/05/2025 4:01 AM EDT [facility] Device ID [id number] 06/05/2025 4:[address] [facility] Specimen Type POC Capillary 06/05/2025 4:[address] [facility] Blood Capillary blood specimen / Unknown 06/05/2025 3:59 AM EDT 06/05/2025 4:01 AM EDT Mayra Rogers MD LAB POINT OF CARE TE ST DOCKED DEVICE UNSOLICITED RESULTS Final Result [facility] [address] [place] [address] * (ABNORMAL) CBC and Differential (06/05/2025 2:21 AM EDT) Pathologist [facility] WBC Count 8.76 3.70 - 10.30 10*3/uL LAB HEMATOLOGY METHOD 06/05/2025 2:52 AM EDT [facility] RBC Count 3.00(L) 3.90 - 5.20 10*6/uL LAB HEMATOLOGY METHOD 06/05/2025 2:52 AM EDT [facility] HGB 8.0(L) 11.2 - 15.7 g/dL LAB HEMATOLOGY METHOD 06/05/2025 2:52 AM EDT [facility] HCT 28.8(L) 34.0 - 45.0 % LAB HEMATOLOGY METHOD 06/05/2025 2:52 AM EDT [facility] Platelet Count 42(L) 155 - 369 10*3/uL LAB HEMATOLOGY METHOD 06/05/2025 2:52 AM EDT [facility] MCV 96 79 - 98 fL LAB HEMATOLOGY METHOD 06/05/2025 2:52 AM EDT [facility] MCH 26.7 26.0 - 32.0 pg LAB HEMATOLOGY METHOD 06/05/2025 2:52 AM EDT [facility] MCHC 27.8(L) 30.7 - 35.5 g/dL LAB HEMATOLOGY METHOD 06/05/2025 2:52 AM EDT [facility] RDW 15.8(H) 11.5 - 14.5 % LAB HEMATOLOGY METHOD 06/05/2025 2:52 AM EDT [facility] MPV LAB HEMATOLOGY METHOD 06/05/2025 2:52 AM EDT [facility] Comment:Not Measured nRBC 0.3(H) <=0.0 per 100 WBCs LAB HEMATOLOGY METHOD 06/05/2025 2:52 AM EDT [facility] Differential Type Automated LAB HEMATOLOGY METHOD 06/05/2025 2:52 AM EDT [facility] Neutrophils % 86 % LAB HEMATOLOGY METHOD 06/05/2025 2:52 AM EDT [facility] Lymphocytes % 6 % LAB HEMATOLOGY METHOD 06/05/2025 2:52 AM EDT [facility] Monocytes % 5 % LAB HEMATOLOGY METHOD 06/05/2025 2:52 AM EDT [facility] Eosinophils % 1 % LAB HEMATOLOGY METHOD 06/05/2025 2:52 AM EDT [facility] Basophils % 0 % LAB HEMATOLOGY METHOD 06/05/2025 2:52 AM EDT [facility] Immature Granulocytes % 2 % LAB HEMATOLOGY METHOD 06/05/2025 2:52 AM EDT [facility] Neutrophils Absolute 7.57(H) 1.60 - 6.10 10*3/uL LAB HEMATOLOGY METHOD 06/05/2025 2:52 AM EDT [facility] Lymphocytes Absolute 0.50(L) 1.20 - 3.90 10*3/uL LAB HEMATOLOGY METHOD 06/05/2025 2:52 AM EDT [facility] Monocytes Absolute 0.45 0.30 - 0.90 10*3/uL LAB HEMATOLOGY METHOD 06/05/2025 2:52 AM EDT [facility] Eosinophils Absolute 0.07 0.00 - 0.50 10*3/uL LAB HEMATOLOGY METHOD 06/05/2025 2:52 AM EDT [facility] Basophils Absolute 0.03 0.00 - 0.10 10*3/uL LAB HEMATOLOGY METHOD 06/05/2025 2:52 AM EDT [facility] Immature Granulocytes Absolute 0.14(H) 0.00 - 0.06 10*3/uL LAB HEMATOLOGY METHOD 06/05/2025 2:52 AM EDT [facility] Blood Venous blood specimen / Unknown Venipuncture / Unknown 06/05/2025 2:21 AM EDT 06/05/2025 2:36 AM EDT Narrative [facility] - 06/05/2025 2:52 AM EDT Therapeutic decision making should be based on absolute values, rather than percentages. us Faiza Garvin MD LAB BLOOD ORDERABLES Final Re sult [facility] [address] [place] [address] * (ABNORMAL) Comprehensive Metabolic Panel, Plasma (06/05/2025 2:21 AM EDT) Glucose, Plasma 66(L) 74 - 99 mg/dL 06/05/2025 3:04 AM EDT [facility] BUN, Plasma 47(H) 7 - 21 mg/dL 06/05/2025 3:04 AM EDT [facility] Creatinine, Plasma 3.34(H) 0.60 - 1.10 mg/dL 06/05/2025 3:04 AM EDT [facility] BUN/Creatinine Ratio 14 06/05/2025 3:04 AM EDT [facility] Sodium, Plasma 139 136 - 145 mmol/L 06/05/2025 3:04 AM EDT [facility] Potassium, Plasma 3.9 3.6 - 4.9 mmol/L 06/05/2025 3:04 AM EDT [facility] Chloride, Plasma 98 97 - 107 mmol/L 06/05/2025 3:04 AM EDT [facility] CO2, Plasma 23 22 - 29 mmol/L 06/05/2025 3:04 AM EDT [facility] Anion Gap 18(H) 6 - 16 mmol/L 06/05/2025 3:04 AM EDT [facility] Total Calcium, Plasma 8.0(L) 8.9 - 10.2 mg/dL 06/05/2025 3:04 AM EDT [facility] Total Protein 6.1(L) 6.3 - 7.9 g/dL 06/05/2025 3:04 AM EDT [facility] Albumin, Plasma 3.2(L) 3.5 - 5.2 g/dL 06/05/2025 3:04 AM EDT [facility] AST, Plasma 13 10 - 35 U/L 06/05/2025 3:04 AM EDT [facility] ALT, Plasma <5(L) 10 - 35 U/L 06/05/2025 3:04 AM EDT [facility] Alkaline Phosphatase, Plasma 191(H) 46 - 142 U/L 06/05/2025 3:04 AM EDT [facility] Total Bilirubin, Plasma 0.4 0.2 - 1.1 mg/dL 06/05/2025 3:04 AM EDT [facility] eGFRcr 15.6 mL/min/1.7 3m*2 06/05/2025 3:04 AM EDT [facility] Comment:Reported eGFRcr in m L/min/1.73m2 is based the CKD-EPI 2020 equation that does not use a race coefficient. Blood Venous blood specimen / Unknown Venipuncture / Unknown 06/05/2025 2:21 AM EDT 06/05/2025 2:35 AM EDT us Faiza Garvin MD LAB BLOOD ORDERABLES Final Re sult [facility] [address] [place] [address] * Magnesium, Plasma (06/05/2025 2:21 AM EDT) Magnesium, Plasma 2.1 1.9 - 2.4 mg/dL 06/05/2025 3:04 AM EDT [facility] Blood Venous blood specimen / Unknown Venipuncture / Unknown 06/05/2025 2:21 AM EDT 06/05/2025 2:35 AM EDT Faiza Garvin MD LAB BLOOD ORDERABLES Final Re sult Performing Organization Address [facility] Co de Phone Number [facility] [address] [place] [address] * Phosphorus, Plasma (06/05/2025 2:21 AM EDT) Phosphorus, Plasma 4.2 2.5 - 4.5 mg/dL 06/05/2025 3:04 AM EDT [facility] Blood Venous blood specimen / Unknown Venipuncture / Unknown 06/05/2025 2:21 AM EDT 06/05/2025 2:35 AM EDT us Faiza Garvin MD LAB BLOOD ORDERABLES Final Re sult Performing Organization Address [facility] Co sc Phone Number [facility] [address] [place] [address] * Acute Hepatitis Panel (06/05/2025 2:21 AM EDT) [facility] Hepatitis B Surf Antigen Negative Negative 06/05/2025 4:43 AM EDT [facility] Hepatitis C Antibody Negative Negative 06/05/2025 4:43 AM EDT [facility] Hepatitis A Antibody IgM Negative Negative 06/05/2025 4:43 AM EDT [facility] Hepatitis B Core Antibody IgM Negative Negative 06/05/2025 4:43 AM EDT [facility] Blood Venous blood specimen / Unknown Venipuncture / Unknown 06/05/2025 2:21 AM EDT 06/05/2025 2:35 AM EDT us Mayra Rogers MD LAB BLOOD ORDERABLES Final Resul t Performing Organization Address [facility] Co de Phone Number [facility] [address] [place] [address] * Hepatitis B Surface Antibody, Quantitative (06/05/2025 2:21 AM EDT) Hepatitis B Surface Antibody, Quantitative <8.00 NonReactiv e: <8, Grayzone: 8 - <12, Reactive: >= 12 mIU/mL 06/05/2025 5:18 AM EDT [facility] Comment: Nonreactive. Individual is considered not immune to HBV infection. Blood Venous blood specimen / Unknown Venipuncture / Unknown 06/05/2025 2:21 AM EDT 06/05/2025 2:35 AM EDT us Mayra Rogers MD LAB BLOOD ORDERABLES Final Resul t [facility] [address] [place] [address] * IR Angiogram ArterioVenous Shunt (06/04/2025 2:31 PM EDT) Anatomical Region Laterality Modality X-Ray Angiograph y Impressions 06/04/2025 3:45 PM EDT Successful POBA of the inflow portion of the AV fistula CRITICAL RESULT: No. COMMUNICATION: Per this written report. Drafted by Medina Ferris on 06/04/2025 3:43 PM Final report signed by Medina Ferris on 06/04/2025 3:45 PM Narrative 06/04/2025 3:45 PM EDT CLINICAL INDICATION: Low flow AVF TECHNIQUE: Comb Capper: Dr. Ferris Secondary Director Intelligence Analysis Programs: None Rad Dose: 3 mGy = Procedure: The patient was identified. After the risks and benefits of the procedure were discussed with the patient, an informed written consent was obtained. The patient was then brought back to interventional suite and placed supine on the table, the left arm was placed in semiabducted position. A time out was performed. The existing fistula was identified and the patient was prepped and draped in the normal sterile fashion. Physical examination of the fistula demonstrated a superficial fistula with weak thrill on examination. The benefits, risks and alternatives were discussed with the patient. Informed consent was signed. The arm was prepped and draped in the usual sterile fashion. Following administration of local anesthesia with 1% lidocaine the AV fistula was accessed using a 21 gauge micropuncture needle in the direction of the arterial inflow. The needle was exchanged over a guide wire for a 4 [place]ian micropuncture sheath. The micropuncture sheath was exchanged for a 6 [place]ian vascular sheath. Via the sheath, A stiff glide wire was placed into the proximal radial artery. Direct arteriogram was performed. This revealed severe stenosis of the juxta anastomotic segment. There was stenosis of the anastomosis as well. The radial artery was noted to be diminutive.. Angioplasty of the anastomosis was performed with 4 mm x 8 cm and the juxta anastomotic segment was then performed with a 6 mm x 4 cm followed by a 7 mm x 4 cm conquest [employer]ING [employer]LYST balloon with acceptable technical result. Digital subtraction angiography demonstrated greatly improved flow from peripheral to central. The sheath was removed, and Complete hemostasis was accomplished with manual compression held to the site. The patient tolerated the procedure well, and there were no complications. Thrill is noted at the level of the venous limb at the end of the procedure. FINDINGS: Digital subtraction venography demonstrated critical stenosis of the anastomosis, juxta anastomotic segment Calcified diminutive radial artery COMPLICATION: No. Procedure Note Medina Ferris MD - 06/04/2025 CLINICAL INDICATION: Low flow AVF TECHNIQUE: Comb Capper: Dr. Ferris Secondary Director Intelligence Analysis Programs: None Rad Dose: 3 mGy = Procedure: The patient was identified. After the risks and benefits of the procedurewere discussed with the patient, an informed written consent was obtained.The patient was then brought back to interventional suite and placedsupine on the table, the left arm was placed in semiabducted position. Atime out was performed. The existing fistula was identified and thepatient was prepped and draped in the normal sterile fashion. Physical examination of the fistula demonstrated a superficial fistulawith weak thrill on examination. The benefits, risks and alternatives were discussed with the patient.Informed consent was signed. The arm was prepped and draped in the usualsterile fashion. Following administration of local anesthesia with 1%lidocaine the AV fistula was accessed using a 21 gauge micropunctureneedle in the direction of the arterial inflow. The needle was exchangedover a guide wire for a 4 [place]ian micropuncture sheath. The micropuncturesheath was exchanged for a 6 [place] vascular sheath. Via the sheath, [place] glide wire was placed into the proximal radial artery. Directarteriogram was performed. This revealed severe stenosis of the juxta anastomotic segment. There wasstenosis of the anastomosis as well. The radial artery was noted to bediminutive.. Angioplasty of the anastomosis was performed with 4 mm x 8 cm and thejuxta anastomotic segment was then performed with a 6 mm x 4 cm followedby a 7 mm x 4 cm conquest MANUFACTURING BUSINESS ANALYST balloon with acceptable technical result.Digital subtraction angiography demonstrated greatly improved flow fromperipheral to central. The sheath was removed, and Complete hemostasis was accomplished withmanual compression held to the site. The patient tolerated the procedurewell, and there were no complications. Thrill is noted at the level of the venous limb at the end of theprocedure. FINDINGS: Digital subtraction venography demonstrated critical stenosis of theanastomosis, juxta anastomotic segment Calcified diminutive radial artery COMPLICATION: No. IMPRESSION: Successful POBA of the inflow portion of the AV fistula CRITICAL RESULT: No. COMMUNICATION: Per this written report. Drafted by Medina Ferris on 06/04/2025 3:43 PM Final report signed by Medina Ferris on 06/04/2025 3:45 PM Medina Ferris MD IMG [facility] Final Result * (ABNORMAL) CBC and Differential (06/04/2025 2:56 AM EDT) WBC Count 7.90 3.70 - 10.30 10*3/uL LAB HEMATOLOGY METHOD 06/04/2025 3:34 AM EDT [facility] RBC Count 2.97(L) 3.90 - 5.20 10*6/uL LAB HEMATOLOGY METHOD 06/04/2025 3:34 AM EDT [facility] HGB 7.9(L) 11.2 - 15.7 g/dL LAB HEMATOLOGY METHOD 06/04/2025 3:34 AM EDT [facility] HCT 28.4(L) 34.0 - 45.0 % LAB HEMATOLOGY METHOD 06/04/2025 3:34 AM EDT [facility] Platelet Count 42(L) 155 - 369 10*3/uL LAB HEMATOLOGY METHOD 06/04/2025 3:34 AM EDT [facility] MCV 96 79 - 98 fL LAB HEMATOLOGY METHOD 06/04/2025 3:34 AM EDT [facility] MCH 26.6 26.0 - 32.0 pg LAB HEMATOLOGY METHOD 06/04/2025 3:34 AM EDT [facility] MCHC 27.8(L) 30.7 - 35.5 g/dL LAB HEMATOLOGY METHOD 06/04/2025 3:34 AM EDT [facility] RDW 15.8(H) 11.5 - 14.5 % LAB HEMATOLOGY METHOD 06/04/2025 3:34 AM EDT [facility] MPV 13.5(H) 8.8 - 12.5 fL LAB HEMATOLOGY METHOD 06/04/2025 3:34 AM EDT [facility] nRBC 0.4(H) <=0.0 per 100 WBCs LAB HEMATOLOGY METHOD 06/04/2025 3:34 AM EDT [facility] Differential Type Automated LAB HEMATOLOGY METHOD 06/04/2025 3:34 AM EDT [facility] Neutrophils % 83 % LAB HEMATOLOGY METHOD 06/04/2025 3:34 AM EDT [facility] Lymphocytes % 8 % LAB HEMATOLOGY METHOD 06/04/2025 3:34 AM EDT [facility] Monocytes % 6 % LAB HEMATOLOGY METHOD 06/04/2025 3:34 AM EDT [facility] Eosinophils % 2 % LAB HEMATOLOGY METHOD 06/04/2025 3:34 AM EDT [facility] Basophils % 0 % LAB HEMATOLOGY METHOD 06/04/2025 3:34 AM EDT [facility] Immature Granulocytes % 1 % LAB HEMATOLOGY METHOD 06/04/2025 3:34 AM EDT [facility] Neutrophils Absolute 6.55(H) 1.60 - 6.10 10*3/uL LAB HEMATOLOGY METHOD 06/04/2025 3:34 AM EDT [facility] Lymphocytes Absolute 0.61(L) 1.20 - 3.90 10*3/uL LAB HEMATOLOGY METHOD 06/04/2025 3:34 AM EDT [facility] Monocytes Absolute 0.48 0.30 - 0.90 10*3/uL LAB HEMATOLOGY METHOD 06/04/2025 3:34 AM EDT [facility] Eosinophils Absolute 0.16 0.00 - 0.50 10*3/uL LAB HEMATOLOGY METHOD 06/04/2025 3:34 AM EDT [facility] Basophils Absolute 0.03 0.00 - 0.10 10*3/uL LAB HEMATOLOGY METHOD 06/04/2025 3:34 AM EDT [facility] Immature Granulocytes Absolute 0.07(H) 0.00 - 0.06 10*3/uL LAB HEMATOLOGY METHOD 06/04/2025 3:34 AM EDT [facility] Blood Venous blood specimen / Unknown Venipuncture / Unknown 06/04/2025 2:56 AM EDT 06/04/2025 3:24 AM EDT Narrative [facility] - 06/04/2025 3:34 AM EDT Therapeutic decision making should be based on absolute values, rather than percentages. us Faiza Garvin MD LAB BLOOD ORDERABLES Final Re sult [facility] [address] [place] [address] * (ABNORMAL) Comprehensive Metabolic Panel, Plasma (06/04/2025 2:56 AM EDT) Glucose, Plasma 79 74 - 99 mg/dL 06/04/2025 3:50 AM EDT [facility] BUN, Plasma 75(H) 7 - 21 mg/dL 06/04/2025 3:50 AM EDT [facility] Creatinine, Plasma 4.69(H) 0.60 - 1.10 mg/dL 06/04/2025 3:50 AM EDT [facility] BUN/Creatinine Ratio 16 06/04/2025 3:50 AM EDT [facility] Sodium, Plasma 137 136 - 145 mmol/L 06/04/2025 3:50 AM EDT [facility] Potassium, Plasma 3.6 3.6 - 4.9 mmol/L 06/04/2025 3:50 AM EDT [facility] Chloride, Plasma 96(L) 97 - 107 mmol/L 06/04/2025 3:50 AM EDT [facility] CO2, Plasma 23 22 - 29 mmol/L 06/04/2025 3:50 AM EDT [facility] Anion Gap 18(H) 6 - 16 mmol/L 06/04/2025 3:50 AM EDT [facility] Total Calcium, Plasma 8.1(L) 8.9 - 10.2 mg/dL 06/04/2025 3:50 AM EDT [facility] Total Protein 6.0(L) 6.3 - 7.9 g/dL 06/04/2025 3:50 AM EDT [facility] Albumin, Plasma 3.1(L) 3.5 - 5.2 g/dL 06/04/2025 3:50 AM EDT [facility] AST, Plasma 12 10 - 35 U/L 06/04/2025 3:50 AM EDT [facility] ALT, Plasma <5(L) 10 - 35 U/L 06/04/2025 3:50 AM EDT [facility] Alkaline Phosphatase, Plasma 189(H) 46 - 142 U/L 06/04/2025 3:50 AM EDT [facility] Total Bilirubin, Plasma 0.3 0.2 - 1.1 mg/dL 06/04/2025 3:50 AM EDT [facility] eGFRcr 10.4 mL/min/1.7 3m*2 06/04/2025 3:50 AM EDT [facility] Comment:Reported eGFRcr in m L/min/1.73m2 is based the CKD-EPI 2020 equation that does not use a race coefficient. Blood Venous blood specimen / Unknown Venipuncture / Unknown 06/04/2025 2:56 AM EDT 06/04/2025 3:24 AM EDT us Faiza Garvin MD LAB BLOOD ORDERABLES Final Re sult [facility] [address] [place] [address] * Magnesium, Plasma (06/04/2025 2:56 AM EDT) Magnesium, Plasma 2.3 1.9 - 2.4 mg/dL 06/04/2025 3:50 AM EDT [facility] Blood Venous blood specimen / Unknown Venipuncture / Unknown 06/04/2025 2:56 AM EDT 06/04/2025 3:24 AM EDT us Faiza Garvin MD LAB BLOOD ORDERABLES Final Re sult Performing Organization Address [facility] Co de Phone Number [facility] [address] [place] [address] * (ABNORMAL) Phosphorus, Plasma (06/04/2025 2:56 AM EDT) Phosphorus, Plasma 5.7(H) 2.5 - 4.5 mg/dL 06/04/2025 3:50 AM EDT [facility] Blood Venous blood specimen / Unknown Venipuncture / Unknown 06/04/2025 2:56 AM EDT 06/04/2025 3:24 AM EDT us Faiza Garvin MD LAB BLOOD ORDERABLES Final Re sult Performing Organization Address [facility] de Phone Number [facility] [address] [place] [address] * (ABNORMAL) Hemoglobin and Hematocrit, Blood (06/03/2025 12:43 PM EDT) HGB 7.9(L) 11.2 - 15.7 g/dL LAB HEMATOLOGY METHOD 06/03/2025 2:01 PM EDT [facility] HCT 28.6(L) 34.0 - 45.0 % LAB HEMATOLOGY METHOD 06/03/2025 2:01 PM EDT [facility] Blood Venous blood specimen / Unknown Venipuncture / Unknown 06/03/2025 12:43 PM EDT 06/03/2025 2:01 PM EDT us Mayra Rogers MD LAB BLOOD ORDERABLES Final Resul t Performing Organization Address [facility] Co de Phone Number [facility] [address] [place] [address] * (ABNORMAL) CBC and Differential (06/03/2025 4:51 AM EDT) WBC Count 7.45 3.70 - 10.30 10*3/uL LAB HEMATOLOGY METHOD 06/03/2025 5:55 AM EDT [facility] RBC Count 2.97(L) 3.90 - 5.20 10*6/uL LAB HEMATOLOGY METHOD 06/03/2025 5:55 AM EDT [facility] HGB 8.1(L) 11.2 - 15.7 g/dL LAB HEMATOLOGY METHOD 06/03/2025 5:55 AM EDT [facility] HCT 28.7(L) 34.0 - 45.0 % LAB HEMATOLOGY METHOD 06/03/2025 5:55 AM EDT [facility] Platelet Count 44(L) 155 - 369 10*3/uL LAB HEMATOLOGY METHOD 06/03/2025 5:55 AM EDT [facility] MCV 97 79 - 98 fL LAB HEMATOLOGY METHOD 06/03/2025 5:55 AM EDT [facility] MCH 27.3 26.0 - 32.0 pg LAB HEMATOLOGY METHOD 06/03/2025 5:55 AM EDT [facility] MCHC 28.2(L) 30.7 - 35.5 g/dL LAB HEMATOLOGY METHOD 06/03/2025 5:55 AM EDT [facility] RDW 15.8(H) 11.5 - 14.5 % LAB HEMATOLOGY METHOD 06/03/2025 5:55 AM EDT [facility] MPV LAB HEMATOLOGY METHOD 06/03/2025 5:55 AM EDT [facility] Comment:Not Measured nRBC 0.4(H) <=0.0 per 100 WBCs LAB HEMATOLOGY METHOD 06/03/2025 5:55 AM EDT [facility] Differential Type Automated LAB HEMATOLOGY METHOD 06/03/2025 5:55 AM EDT [facility] Neutrophils % 83 % LAB HEMATOLOGY METHOD 06/03/2025 5:55 AM EDT [facility] Lymphocytes % 8 % LAB HEMATOLOGY METHOD 06/03/2025 5:55 AM EDT [facility] Monocytes % 6 % LAB HEMATOLOGY METHOD 06/03/2025 5:55 AM EDT [facility] Eosinophils % 2 % LAB HEMATOLOGY METHOD 06/03/2025 5:55 AM EDT [facility] Basophils % 0 % LAB HEMATOLOGY METHOD 06/03/2025 5:55 AM EDT [facility] Immature Granulocytes % 1 % LAB HEMATOLOGY METHOD 06/03/2025 5:55 AM EDT [facility] Neutrophils Absolute 6.12(H) 1.60 - 6.10 10*3/uL LAB HEMATOLOGY METHOD 06/03/2025 5:55 AM EDT [facility] Lymphocytes Absolute 0.60(L) 1.20 - 3.90 10*3/uL LAB HEMATOLOGY METHOD 06/03/2025 5:55 AM EDT [facility] Monocytes Absolute 0.46 0.30 - 0.90 10*3/uL LAB HEMATOLOGY METHOD 06/03/2025 5:55 AM EDT [facility] Eosinophils Absolute 0.17 0.00 - 0.50 10*3/uL LAB HEMATOLOGY METHOD 06/03/2025 5:55 AM EDT [facility] Basophils Absolute 0.03 0.00 - 0.10 10*3/uL LAB HEMATOLOGY METHOD 06/03/2025 5:55 AM EDT [facility] Immature Granulocytes Absolute 0.07(H) 0.00 - 0.06 10*3/uL LAB HEMATOLOGY METHOD 06/03/2025 5:55 AM EDT [facility] Blood Venous blood specimen / Unknown Venipuncture / Unknown 06/03/2025 4:51 AM EDT 06/03/2025 5:15 AM EDT Narrative [facility] - 06/03/2025 5:55 AM EDT Therapeutic decision making should be based on absolute values, rather than percentages. us Faiza Garvin MD LAB BLOOD ORDERABLES Final Re sult [facility] [address] [place] [address] * (ABNORMAL) Comprehensive Metabolic Panel, Plasma (06/03/2025 4:51 AM EDT) Glucose, Plasma 105(H) 74 - 99 mg/dL 06/03/2025 5:50 AM EDT [facility] BUN, Plasma 66(H) 7 - 21 mg/dL 06/03/2025 5:50 AM EDT [facility] Creatinine, Plasma 4.30(H) 0.60 - 1.10 mg/dL 06/03/2025 5:50 AM EDT [facility] BUN/Creatinine Ratio 15 06/03/2025 5:50 AM EDT [facility] Sodium, Plasma 138 136 - 145 mmol/L 06/03/2025 5:50 AM EDT [facility] Potassium, Plasma 3.4(L) 3.6 - 4.9 mmol/L 06/03/2025 5:50 AM EDT [facility] Chloride, Plasma 96(L) 97 - 107 mmol/L 06/03/2025 5:50 AM EDT [facility] CO2, Plasma 23 22 - 29 mmol/L 06/03/2025 5:50 AM EDT [facility] Anion Gap 19(H) 6 - 16 mmol/L 06/03/2025 5:50 AM EDT [facility] Total Calcium, Plasma 8.1(L) 8.9 - 10.2 mg/dL 06/03/2025 5:50 AM EDT [facility] Total Protein 6.0(L) 6.3 - 7.9 g/dL 06/03/2025 5:50 AM EDT [facility] Albumin, Plasma 3.3(L) 3.5 - 5.2 g/dL 06/03/2025 5:50 AM EDT [facility] AST, Plasma 13 10 - 35 U/L 06/03/2025 5:50 AM EDT [facility] ALT, Plasma <5(L) 10 - 35 U/L 06/03/2025 5:50 AM EDT [facility] Alkaline Phosphatase, Plasma 213(H) 46 - 142 U/L 06/03/2025 5:50 AM EDT [facility] Total Bilirubin, Plasma 0.3 0.2 - 1.1 mg/dL 06/03/2025 5:50 AM EDT [facility] eGFRcr 11.5 mL/min/1.7 3m*2 06/03/2025 5:50 AM EDT [facility] Comment:Reported eGFRcr in m L/min/1.73m2 is based the CKD-EPI 2020 equation that does not use a race coefficient. Blood Venous blood specimen / Unknown Venipuncture / Unknown 06/03/2025 4:51 AM EDT 06/03/2025 5:23 AM EDT us Faiza Garvin MD LAB BLOOD ORDERABLES Final Re sult [facility] [address] [place] [address] * Magnesium, Plasma (06/03/2025 4:51 AM EDT) Magnesium, Plasma 2.3 1.9 - 2.4 mg/dL 06/03/2025 5:50 AM EDT [facility] Blood Venous blood specimen / Unknown Venipuncture / Unknown 06/03/2025 4:51 AM EDT 06/03/2025 5:23 AM EDT us Faiza Garvin MD LAB BLOOD ORDERABLES Final Re sult Performing Organization Address [facility]/ZIP Co de Phone Number [facility] [address] [place] [address] * (ABNORMAL) Phosphorus, Plasma (06/03/2025 4:51 AM EDT) Phosphorus, Plasma 5.3(H) 2.5 - 4.5 mg/dL 06/03/2025 5:50 AM EDT [facility] Blood Venous blood specimen / Unknown Venipuncture / Unknown 06/03/2025 4:51 AM EDT 06/03/2025 5:23 AM EDT us Faiza Garvin MD LAB BLOOD ORDERABLES Final Re sult [facility] [address] [place] [address] * (ABNORMAL) Hemoglobin and Hematocrit, Blood (06/02/2025 5:50 PM EDT) HGB 8.3(L) 11.2 - 15.7 g/dL LAB HEMATOLOGY METHOD 06/02/2025 6:03 PM EDT [facility] HCT 29.0(L) 34.0 - 45.0 % LAB HEMATOLOGY METHOD 06/02/2025 6:03 PM EDT [facility] Blood Venous blood specimen / Unknown Venipuncture / Unknown 06/02/2025 5:50 PM EDT 06/02/2025 5:57 PM EDT us Mayra Rogers MD LAB BLOOD ORDERABLES Final Resul t [facility] [address] [place] [address] * VAS US Hemodialysis Access Left (06/02/2025 10:03 AM EDT) Anatomical Region Laterality Modality Vascular Ultrasound Impressions 06/03/2025 4:54 PM EDT The radiocephalic AVF is patent. Volume flows are below normal limits. Distal Radial Artery flow reversal. A hemodynamically significant stenosis is identified at the distal forearm. COMMUNICATION: Per this written report. Preliminary report signed by Sneha Mckeon on 06/02/2025 10:16 AM By electronically signing this report, I, the attending physician, attest that I have personally reviewed the images/data for the above examination(s) and I agree with the final edited report. Drafted by Sneha Mckeon on 06/02/2025 10:06 AM Final report signed by Ramesh George MD, FACS, FSVS, RPVI on 06/03/2025 4:54 PM Narrative 06/03/2025 4:54 PM EDT CLINICAL INDICATION: Access malfunction TECHNIQUE: Non-invasive, real time duplex exam of the hemodialysis access with Doppler ultrasonic waveform and spectral analysis was performed. COMPARISON: None FINDINGS: Hemodialysis access duplex demonstrates the following: Type of AV Fistula: left forearm radiocephalic Flow Volumes: Arterial: 2cm above anastomosis: 142 cc/mins Venous: 2 cm above anastomosis:: 376 cc/min proximal upper arm: 202 cc/min Flow Velocities: Radial Artery: Distal: 60 cm/s-retrograde At anastomosis: 340 cm/s 2 cm above anastomosis: 262 cm/s Distal ulnar: 103 cm/s Cephalic Vein: Wrist- at anastomosis: 541 cm/s velocity ratio: 2.0 Distal forearm -2cm above: 464 cm/s velocity ratio: 1.9 Mid forearm: 103 cm/s Prox forearm: 52 cm/s Abnormal waveform At antecubital confluence: 65 cm/s Procedure Note Ramesh George MD - 06/03/2025 CLINICAL INDICATION: Access malfunction TECHNIQUE: Non-invasive, real time duplex exam of the hemodialysis access withDoppler ultrasonic waveform and spectral analysis was performed. COMPARISON: None FINDINGS: Hemodialysis access duplex demonstrates the following: Type of AV Fistula: left forearm radiocephalic Flow Volumes: Arterial: 2cm above anastomosis: 142 cc/mins Venous: 2 cm above anastomosis:: 376 cc/min proximal upper arm: 202 cc/min Flow Velocities: Radial Artery: Distal: 60 cm/s-retrograde At anastomosis: 340 cm/s 2 cm above anastomosis: 262 cm/s Distal ulnar: 103 cm/s Cephalic Vein: Wrist- at anastomosis: 541 cm/s velocity ratio: 2.0 Distal forearm -2cm above: 464 cm/s velocity ratio: 1.9 Mid forearm: 103 cm/s Prox forearm: 52 cm/s Abnormal waveform At antecubital confluence: 65 cm/s IMPRESSION: The radiocephalic AVF is patent. Volume flows are below normal limits. Distal Radial Artery flow reversal. A hemodynamically significant stenosis is identified at the distalforearm. COMMUNICATION: Per this written report. Preliminary report signed by Sneha Mckeon on 06/02/2025 10:16 AM By electronically signing this report, I, the attending physician, attestthat I have personally reviewed the images/data for the aboveexamination(s) and I agree with the final edited report. Drafted by Sneha Mckeon on 06/02/2025 10:06 AM Final report signed by Ramesh George MD, FACS, FSVS, RPVI on06/03/2025 4:54 PM us Faiza Garvin MD CV VASCULAR PROCEDURES Final Result * ECHO, ADULT TRANSTHORACIC COMPLETE (06/02/2025 7:40 AM EDT) BSA 1.71 m2 VIOLETA ISCV Height 170.2 VIOLETA ISCV Weight 60.8 VIOLETA ISCV TR Vmax 306.0 cm/s VIOLETA ISCV PA V2 VTI 39.9 cm VIOLETA ISCV TR Max PG [address]TA [address]SCV [address] end-d jamila 179.7 cm/s VIOLETA ISCV PA MG 5 mmHg VIOLETA ISCV PA V2 Vmax 156.0 cm/s VIOLETA ISCV PA PG 10 mmHg VIOLETA ISCV IVSd 19 mm VIOLETA ISCV LVIDd 52 mm VIOLETA ISCV LVPWd 10 mm VIOLETA ISCV LV MASS(C)D 325 g VIOLETA ISCV [facility] CV ECHO LV MASS INDEX 190 g/m2 VIOLETA ISCV LV RWT 0.56 mm VIOLETA ISCV Ao Root Diam 31 mm VIOLETA ISCV LVIDs 37 mm VIOLETA ISCV LA dimension 49 mm VIOLETA ISCV LVOT diam 17 mm VIOLETA ISCV LVOT AREA 2.3 cm2 VIOLETA ISCV MPA diam 33 mm VIOLETA ISCV MPA area 8.5 cm2 VIOLETA ISCV RVSP 45 mmHg VIOLETA ISCV RAP systole 8 mmHg VIOLETA ISCV PADP 21 mmHg VIOLETA ISCV RVOT diam 40 mm VIOLETA ISCV RVOT Distal 38 mm VIOLETA ISCV RVIDd 43 mm VIOLETA ISCV Anatomical Region Laterality Modality Echocardiography Narrative 06/02/2025 11:27 AM EDT Left Ventricle: The left ventricle is normal size. There is concentric hypertrophy. The left ventricular systolic function is reduced. Unable to assess diastolic function. Due to inability to complete the echocardiographic examination, regional wall motion was not interpretable. There are echocardiographic features suggestive of cardiac amyloidosis. Further evaluation is warranted. Right Ventricle: The right ventricle is dilated. The right ventricular systolic function is grossly normal. Unable to estimate the right ventricular systolic pressure (RVSP) due to inadequate TR signal. Aortic Valve: There is mild aortic valve regurgitation. Mitral Valve: There is mild mitral regurgitation. Tricuspid Valve: There is moderate tricuspid regurgitation. Pulmonic Valve: There is moderate pulmonic regurgitation. Great Vessels: The main pulmonary artery is dilated. There is no recent study available for direct [id number] comparison. Unable to complete study due to patient's desire to stop. Left Ventricle The left ventricle is normal size. There is concentric hypertrophy. The left ventricular systolic function is reduced. Unable to assess diastolic function. Due to inability to complete the echocardiographic examination, regional wall motion was not interpretable. There are echocardiographic features suggestive of cardiac amyloidosis. Further evaluation is warranted. Right Ventricle The right ventricle is dilated. The right ventricular systolic function is grossly normal. Unable to estimate the right ventricular systolic pressure (RVSP) due to inadequate TR signal. Left Atrium The left atrium is dilated by visual assessment. The interatrial septum is intact with no evidence for an atrial septal defect. The interatrial septum bows toward the RA consistent with elevated left atrial pressure. Right Atrium The right atrium was not well visualized. IVC/SVC The right atrial pressure could not be accurately assessed, and an assumed pressure of 8mmHg was used for calculations. Mitral Valve The leaflets appear thickened. There is mild mitral regurgitation. There is no mitral stenosis. Tricuspid Valve The tricuspid valve is normal in appearance. There is moderate tricuspid regurgitation. There is no tricuspid stenosis. Aortic Valve The aortic valve appears to be trileaflet. The cusp(s) are thickened. There is calcification of the aortic valve leaflets. There is mild aortic valve regurgitation. There is no hemodynamically significant valvular aortic stenosis. Pulmonic Valve The pulmonic valve is normal in appearance. There is moderate pulmonic regurgitation. There is no pulmonic stenosis. Pericardium No pericardial effusion. Great Vessels The aortic root is normal in size. The main pulmonary artery is dilated. Study Details A limited transthoracic echocardiogram using limited 2D imaging was performed. Overall the study quality was adequate. The study was technically difficult due to patient's uncooperativeness. Height: 170.2 cm. Weight: 60.8 kg. BSA: 1.71 m2. Study Recommendation There is no recent study available for direct [id number] comparison. Faiza Garvin MD CV ECHO PROCEDURES Final Resu lt * (ABNORMAL) Free T4, Plasma (06/02/2025 4:07 AM EDT) Free T4, Plasma 0.6(L) 0.8 - 1.7 ng/dL 06/02/2025 6:15 PM EDT [facility] Blood Venous blood specimen / Unknown Venipuncture / Unknown 06/02/2025 4:07 AM EDT 06/02/2025 4:26 AM EDT Mayra Rogers MD LAB BLOOD ORDERABLES Final Resul t [facility] [address] [place] [address] * (ABNORMAL) TSH Reflex FT4 (06/02/2025 4:07 AM EDT) Pathologist [facility] Thyroid Stimulating Hormone, Plasma 23.70(H) 0.40 - 4.20 uIU/mL 06/02/2025 5:37 PM EDT [facility] Blood Venous blood specimen / Unknown Venipuncture / Unknown 06/02/2025 4:07 AM EDT 06/02/2025 4:26 AM EDT us Mayra Rogers MD LAB BLOOD ORDERABLES Final Resul t [facility] [address] [place] [address] * (ABNORMAL) CBC and Differential (06/02/2025 4:07 AM EDT) Pathologist [facility] WBC Count 6.73 3.70 - 10.30 10*3/uL LAB HEMATOLOGY METHOD 06/02/2025 6:07 AM EDT [facility] RBC Count 2.89(L) 3.90 - 5.20 10*6/uL LAB HEMATOLOGY METHOD 06/02/2025 6:07 AM EDT [facility] HGB 7.7(L) 11.2 - 15.7 g/dL LAB HEMATOLOGY METHOD 06/02/2025 6:07 AM EDT [facility] HCT 27.9(L) 34.0 - 45.0 % LAB HEMATOLOGY METHOD 06/02/2025 6:07 AM EDT [facility] Platelet Count LAB HEMATOLOGY METHOD 06/02/2025 6:07 AM EDT [facility] Comment:Interfering substanc e present, platelets appear decreased. Recollect recommended. MCV 97 79 - 98 fL LAB HEMATOLOGY METHOD 06/02/2025 6:07 AM EDT [facility] MCH 26.6 26.0 - 32.0 pg LAB HEMATOLOGY METHOD 06/02/2025 6:07 AM EDT [facility] MCHC 27.6(L) 30.7 - 35.5 g/dL LAB HEMATOLOGY METHOD 06/02/2025 6:07 AM EDT [facility] RDW 15.3(H) 11.5 - 14.5 % LAB HEMATOLOGY METHOD 06/02/2025 6:07 AM EDT [facility] MPV LAB HEMATOLOGY METHOD 06/02/2025 6:07 AM EDT [facility] Comment:Not Measured nRBC 0.3(H) <=0.0 per 100 WBCs LAB HEMATOLOGY METHOD 06/02/2025 6:07 AM EDT [facility] Differential Type Automated LAB HEMATOLOGY METHOD 06/02/2025 6:07 AM EDT [facility] Neutrophils % 84 % LAB HEMATOLOGY METHOD 06/02/2025 6:07 AM EDT [facility] Lymphocytes % 7 % LAB HEMATOLOGY METHOD 06/02/2025 6:07 AM EDT [facility] Monocytes % 6 % LAB HEMATOLOGY METHOD 06/02/2025 6:07 AM EDT [facility] Eosinophils % 2 % LAB HEMATOLOGY METHOD 06/02/2025 6:07 AM EDT [facility] Basophils % 1 % LAB HEMATOLOGY METHOD 06/02/2025 6:07 AM EDT [facility] Immature Granulocytes % 0 % LAB HEMATOLOGY METHOD 06/02/2025 6:07 AM EDT [facility] Neutrophils Absolute 5.62 1.60 - 6.10 10*3/uL LAB HEMATOLOGY METHOD 06/02/2025 6:07 AM EDT [facility] Lymphocytes Absolute 0.50(L) 1.20 - 3.90 10*3/uL LAB HEMATOLOGY METHOD 06/02/2025 6:07 AM EDT [facility] Monocytes Absolute 0.41 0.30 - 0.90 10*3/uL LAB HEMATOLOGY METHOD 06/02/2025 6:07 AM EDT [facility] Eosinophils Absolute 0.13 0.00 - 0.50 10*3/uL LAB HEMATOLOGY METHOD 06/02/2025 6:07 AM EDT [facility] Basophils Absolute 0.04 0.00 - 0.10 10*3/uL LAB HEMATOLOGY METHOD 06/02/2025 6:07 AM EDT [facility] Immature Granulocytes Absolute 0.03 0.00 - 0.06 10*3/uL LAB HEMATOLOGY METHOD 06/02/2025 6:07 AM EDT [facility] Blood Venous blood specimen / Unknown Venipuncture / Unknown 06/02/2025 4:07 AM EDT 06/02/2025 4:09 AM EDT Narrative [facility] - 06/02/2025 6:07 AM EDT Therapeutic decision making should be based on absolute values, rather than percentages. us Faiza Garvin MD LAB BLOOD ORDERABLES Final Re sult [facility] [address] [place] [address] * (ABNORMAL) Comprehensive Metabolic Panel, Plasma (06/02/2025 4:07 AM EDT) Glucose, Plasma 132(H) 74 - 99 mg/dL 06/02/2025 4:55 AM EDT [facility] BUN, Plasma 61(H) 7 - 21 mg/dL 06/02/2025 4:55 AM EDT [facility] Creatinine, Plasma 3.90(H) 0.60 - 1.10 mg/dL 06/02/2025 4:55 AM EDT [facility] BUN/Creatinine Ratio 16 06/02/2025 4:55 AM EDT [facility] Sodium, Plasma 136 136 - 145 mmol/L 06/02/2025 4:55 AM EDT [facility] Potassium, Plasma 3.6 3.6 - 4.9 mmol/L 06/02/2025 4:55 AM EDT [facility] Chloride, Plasma 96(L) 97 - 107 mmol/L 06/02/2025 4:55 AM EDT [facility] CO2, Plasma 22 22 - 29 mmol/L 06/02/2025 4:55 AM EDT [facility] Anion Gap 18(H) 6 - 16 mmol/L 06/02/2025 4:55 AM EDT [facility] Total Calcium, Plasma 8.1(L) 8.9 - 10.2 mg/dL 06/02/2025 4:55 AM EDT [facility] Total Protein 6.0(L) 6.3 - 7.9 g/dL 06/02/2025 4:55 AM EDT [facility] Albumin, Plasma 3.0(L) 3.5 - 5.2 g/dL 06/02/2025 4:55 AM EDT [facility] AST, Plasma 20 10 - 35 U/L 06/02/2025 4:55 AM EDT [facility] ALT, Plasma <5(L) 10 - 35 U/L 06/02/2025 4:55 AM EDT [facility] Alkaline Phosphatase, Plasma 194(H) 46 - 142 U/L 06/02/2025 4:55 AM EDT [facility] Total Bilirubin, Plasma 0.3 0.2 - 1.1 mg/dL 06/02/2025 4:55 AM EDT [facility] eGFRcr 12.9 mL/min/1.7 3m*2 06/02/2025 4:55 AM EDT [facility] Comment:Reported eGFRcr in m L/min/1.73m2 is based the CKD-EPI 2020 equation that does not use a race coefficient. Blood Venous blood specimen / Unknown Venipuncture / Unknown 06/02/2025 4:07 AM EDT 06/02/2025 4:26 AM EDT us Faiza Garvin MD LAB BLOOD ORDERABLES Final Re sult Performing Organization Address [facility]/ZIP Co de Phone Number [facility] [address] [place] [address] * Magnesium, Plasma (06/02/2025 4:07 AM EDT) Magnesium, Plasma 2.3 1.9 - 2.4 mg/dL 06/02/2025 4:55 AM EDT [facility] Blood Venous blood specimen / Unknown Venipuncture / Unknown 06/02/2025 4:07 AM EDT 06/02/2025 4:26 AM EDT us Faiza Garvin MD LAB BLOOD ORDERABLES Final Re sult Performing Organization Address City/[facility]/ZIP Co de Phone Number [facility] [address] [place] [address] * (ABNORMAL) Phosphorus, Plasma (06/02/2025 4:07 AM EDT) Phosphorus, Plasma 4.8(H) 2.5 - 4.5 mg/dL 06/02/2025 4:55 AM EDT [facility] Blood Venous blood specimen / Unknown Venipuncture / Unknown 06/02/2025 4:07 AM EDT 06/02/2025 4:26 AM EDT us Faiza Garvin MD LAB BLOOD ORDERABLES Final Re sult [facility] [address] [place] [address] * SARS-CoV-2, Flu A, Flu B, and RSV - Rapid (06/01/2025 6:53 PM EDT) [facility] SARS CoV-2/COVID-19 RNA PCR Result Not Detected Not Detected 06/01/2025 7:59 PM EDT [facility] Influenza A Virus PCR Result Not Detected Not Detected 06/01/2025 7:59 PM EDT [facility] Influenza B Virus PCR Result Not Detected Not Detected 06/01/2025 7:59 PM EDT [facility] Respiratory Syncytial Virus (RSV) PCR Result Not Detected Not Detected 06/01/2025 7:59 PM EDT [facility] Swab Nasopharyngeal structure / Unknown Non-blood Collection / Unknown 06/01/2025 6:53 PM EDT 06/01/2025 7:02 PM EDT Narrative [facility] - 06/01/2025 7:59 PM EDT This test is FDA approved for use with nasopharyngeal specimens in Viral Transport Media (VTM). This test is used for clinical purposes. It should not be regarded as investigational or for research. This laboratory is certified under the Clinical Laboratory improvement Amendments of 1988 (CLIA-88 as qualified to perform high complexity clinical laboratory testing. This test was performed on the Xpert Xpress SARS CoV-2 Plus assay test, a PCR- based method. Negative results should be considered presumptive and do not preclude current or future infection obtained through community transmission or other exposures. Negative results must be considered in the context of an individual's recent exposures, history, presence of clinical signs and symptoms consistent with COVID-19. us Faiza Garvin MD LAB MICROBIOLOGY - GENERAL OR DERABLES Final Result Performing Organization Address City/[facility]/ZIP Co de Phone Number [facility] [address] [place] [address] * Blood Culture (Aerobic/Anaerobet Set) (06/01/2025 6:52 PM EDT) Culture No growth at day 5 06/06/2025 8:01 PM EDT [facility] Blood Structure of right hand / Unknown Venipuncture / Unknown 06/01/2025 6:52 PM EDT 06/01/2025 7:03 PM EDT Narrative [facility] - 06/06/2025 8:01 PM EDT Low blood volume submitted, results may be compromised us Faiza Garvin MD LAB MICROBIOLOGY - GENERAL OR DERABLES Final Result Performing Organization Address [facility] Co de Phone Number [facility] [address] [place] [address] * Blood Culture (Aerobic/Anaerobet Set) (06/01/2025 6:52 PM EDT) Culture No growth at day 5 06/06/2025 8:01 PM EDT [facility] Blood Structure of right wrist region / Unknown Venipuncture / Unknown 06/01/2025 6:52 PM EDT 06/01/2025 7:03 PM EDT Narrative [facility] - 06/06/2025 8:01 PM EDT Low blood volume submitted, results may be compromised us Faiza Garvin MD LAB MICROBIOLOGY - GENERAL OR DERABLES Final Result Performing Organization Address City/[facility]/ZIP Co de Phone Number [facility] [address] [place] [address] * XR Chest 1 View (06/01/2025 5:10 PM EDT) Anatomical Region Laterality Modality Chest Digital Radiogra phy Impressions 06/01/2025 7:25 PM EDT Moderate to large right pleural effusion and bilateral airspace disease, likely reflecting pulmonary edema. CRITICAL RESULT: No. COMMUNICATION: Per this written report. Preliminary report signed by En Amato MD on 06/01/2025 6:40 PM By electronically signing this report, I, the attending physician, attest that I have personally reviewed the images/data for the above examination(s) and agree with the final edited report. Drafted by En Amato MD on 06/01/2025 6:39 PM Final report signed by Tawny Hughes MD on 06/01/2025 7:25 PM Narrative 06/01/2025 7:25 PM EDT CLINICAL INDICATION: SOA, hasn't had dialysis since Tuesday TECHNIQUE: XR CHEST 1 VIEW COMPARISON: 07/01/2024 radiograph FINDINGS: Stable enlarged cardiomediastinal silhouette. Intact median sternotomy wires. Bilateral, right greater than left perihilar airspace opacities and moderate to large right pleural effusion. No sizable pneumothorax. Procedure Note Tawny Hughes MD - 06/01/2025 CLINICAL INDICATION: SOA, hasn't had dialysis since Tuesday TECHNIQUE: XR CHEST 1 VIEW COMPARISON: 07/01/2024 radiograph FINDINGS: Stable enlarged cardiomediastinal silhouette. Intact median sternotomywires. Bilateral, right greater than left perihilar airspace opacities andmoderate to large right pleural effusion. No sizable pneumothorax. IMPRESSION: Moderate to large right pleural effusion and bilateral airspace disease,likely reflecting pulmonary edema. CRITICAL RESULT: No. COMMUNICATION: Per this written report. Preliminary report signed by En Amato MD on 06/01/2025 6:40 PM By electronically signing this report, I, the attending physician, attestthat I have personally reviewed the images/data for the aboveexamination(s) and agree with the final edited report. Drafted by En Amato MD on 06/01/2025 6:39 PM Final report signed by Tawny Hughes MD on 06/01/2025 7:25 PM us Klarissa Monterroso DO IMG XR PROCEDURES Final Resul t * EKG now - STAT (adult) (06/01/2025 4:57 PM EDT) Pathologist [facility] EKG DIAGNOSIS CLASS Abnormal MUSE ECG Ventricular Rate 48 BPM MUSE ECG Atrial Rate 48 BPM MUSE ECG WY Interval 154 ms MUSE ECG QRSD Interval 114 ms MUSE ECG QT Interval 478 ms MUSE ECG QTC Interval 427 ms MUSE ECG P Pine Level 54 degrees MUSE ECG R [place] Level 116 degrees MUSE ECG T Wave Pine Level -12 degrees MUSE ECG Diagnosis Sinus bradycardia with premature atrial complexes with aberrant conduction MUSE ECG Diagnosis Low voltage QRS MUSE ECG Diagnosis Possible , old Anterior infarct MUSE ECG Diagnosis Left posterior fascicular block MUSE ECG Diagnosis Nonspecific T wave abnormality MUSE ECG Diagnosis Abnormal ECG MUSE ECG Diagnosis MUSE ECG Diagnosis Confirmed by Michael Garner ([id number]) on 06/02/2025 10:26:53 AM MUSE ECG 06/01/2025 4:57 PM EDT 06/02/2025 10:26 AM EDT Klarissa Monterroso DO ECG ORDERABLES Final Result MUSE ECG * (ABNORMAL) BNP (06/01/2025 4:47 PM EDT) [facility] N-Terminal, PROBNP, Plasma >70,000(H) 0 - 899 pg/mL 06/01/2025 10:34 PM EDT [facility] Blood Venous blood specimen / Unknown Venipuncture / Unknown 06/01/2025 4:47 PM EDT 06/01/2025 4:53 PM EDT Faiza Garvin MD LAB BLOOD ORDERABLES Final Re sult [facility] [address] [place] [address] * (ABNORMAL) Blood gas panel, venous (06/01/2025 4:47 PM EDT) [facility] pH, Venous 7.34 7.32 - 7.43 LAB HEMATOLOGY METHOD 06/01/2025 4:54 PM EDT [facility] pCO2, Venous 51 37 - 52 mmHg LAB HEMATOLOGY METHOD 06/01/2025 4:54 PM EDT [facility] pO2, Venous 39 25 - 40 mmHg LAB HEMATOLOGY METHOD 06/01/2025 4:54 PM EDT [facility] SO2, Measured, Venous 66 65 - 80 % LAB HEMATOLOGY METHOD 06/01/2025 4:54 PM EDT [facility] Base Excess, Venous 1.5 -2.0 - 3.0 mmol/L LAB HEMATOLOGY METHOD 06/01/2025 4:54 PM EDT [facility] Bicarbonate, Calculated, Venous 28(H) 22 - 26 mmol/L LAB HEMATOLOGY METHOD 06/01/2025 4:54 PM EDT [facility] Hematocrit, Whole Blood 26.2(L) 34.0 - 45.0 % LAB HEMATOLOGY METHOD 06/01/2025 4:54 PM EDT [facility] Sodium, Whole Blood 138 136 - 145 mmol/L LAB HEMATOLOGY METHOD 06/01/2025 4:54 PM EDT [facility] Potassium, Whole Blood 3.3(L) 3.6 - 4.9 mmol/L LAB HEMATOLOGY METHOD 06/01/2025 4:54 PM EDT [facility] Chloride, Whole Blood 96(L) 97 - 107 mmol/L LAB HEMATOLOGY METHOD 06/01/2025 4:54 PM EDT [facility] Glucose, Whole Blood 158(H) 74 - 99 mg/dL LAB HEMATOLOGY METHOD 06/01/2025 4:54 PM EDT [facility] Lactate, Venous, Whole Blood 0.8 0.5 - 2.2 mmol/L LAB HEMATOLOGY METHOD 06/01/2025 4:54 PM EDT [facility] Ionized Calcium, Whole Blood 4.5(L) 4.6 - 5.1 mg/dL LAB HEMATOLOGY METHOD 06/01/2025 4:54 PM EDT [facility] Blood Venous blood specimen / Unknown Venipuncture / Unknown 06/01/2025 4:47 PM EDT 06/01/2025 4:53 PM EDT Klarissa Monterroso DO LAB BLOOD ORDERABLES Final Re sult Performing Organization Address City/[facility]/ZIP Co de Phone Number [facility] [address] [place] [address] * (ABNORMAL) Phosphorus (06/01/2025 4:47 PM EDT) Pathologist [facility] Phosphorus, Plasma 4.7(H) 2.5 - 4.5 mg/dL 06/01/2025 5:16 PM EDT [facility] Blood Venous blood specimen / Unknown Venipuncture / Unknown 06/01/2025 4:47 PM EDT 06/01/2025 4:53 PM EDT [employer] DO LAB BLOOD ORDERABLES Final Re sult Performing Organization Address [facility]/ZIP Co de Phone Number [facility] [address] [place] [address] * Magnesium (06/01/2025 4:47 PM EDT) [facility] Magnesium, Plasma 2.4 1.9 - 2.4 mg/dL 06/01/2025 5:16 PM EDT [facility] Blood Venous blood specimen / Unknown Venipuncture / Unknown 06/01/2025 4:47 PM EDT 06/01/2025 4:53 PM EDT Klarissa L Loc DO LAB BLOOD ORDERABLES Final Re sult Performing Organization Address City/[facility]/ZIP Co de Phone Number [facility] [address] [place] [address] * (ABNORMAL) CBC (06/01/2025 4:47 PM EDT) [facility] WBC Count 6.37 3.70 - 10.30 10*3/uL LAB HEMATOLOGY METHOD 06/01/2025 5:00 PM EDT [facility] RBC Count 3.11(L) 3.90 - 5.20 10*6/uL LAB HEMATOLOGY METHOD 06/01/2025 5:00 PM EDT [facility] HGB 8.6(L) 11.2 - 15.7 g/dL LAB HEMATOLOGY METHOD 06/01/2025 5:00 PM EDT [facility] HCT 30.3(L) 34.0 - 45.0 % LAB HEMATOLOGY METHOD 06/01/2025 5:00 PM EDT [facility] Platelet Count 46(L) 155 - 369 10*3/uL LAB HEMATOLOGY METHOD 06/01/2025 5:00 PM EDT [facility] MCV 97 79 - 98 fL LAB HEMATOLOGY METHOD 06/01/2025 5:00 PM EDT [facility] MCH 27.7 26.0 - 32.0 pg LAB HEMATOLOGY METHOD 06/01/2025 5:00 PM EDT [facility] MCHC 28.4(L) 30.7 - 35.5 g/dL LAB HEMATOLOGY METHOD 06/01/2025 5:00 PM EDT [facility] RDW 15.4(H) 11.5 - 14.5 % LAB HEMATOLOGY METHOD 06/01/2025 5:00 PM EDT [facility] MPV LAB HEMATOLOGY METHOD 06/01/2025 5:00 PM EDT [facility] Comment:Not Measured nRBC 0.0 <=0.0 per 100 WBCs LAB HEMATOLOGY METHOD 06/01/2025 5:00 PM EDT [facility] Blood Venous blood specimen / Unknown Venipuncture / Unknown 06/01/2025 4:47 PM EDT 06/01/2025 4:53 PM EDT us Klarissa Monterroso DO LAB BLOOD ORDERABLES Final Re sult [facility] [address] [place] [address] * (ABNORMAL) CMP (06/01/2025 4:47 PM EDT) Glucose, Plasma 166(H) 74 - 99 mg/dL 06/01/2025 5:16 PM EDT [facility] BUN, Plasma 57(H) 7 - 21 mg/dL 06/01/2025 5:16 PM EDT [facility] Creatinine, Plasma 3.87(H) 0.60 - 1.10 mg/dL 06/01/2025 5:16 PM EDT [facility] BUN/Creatinine Ratio 15 06/01/2025 5:16 PM EDT [facility] Sodium, Plasma 138 136 - 145 mmol/L 06/01/2025 5:16 PM EDT [facility] Potassium, Plasma 3.4(L) 3.6 - 4.9 mmol/L 06/01/2025 5:16 PM EDT [facility] Chloride, Plasma 96(L) 97 - 107 mmol/L 06/01/2025 5:16 PM EDT [facility] CO2, Plasma 25 22 - 29 mmol/L 06/01/2025 5:16 PM EDT [facility] Anion Gap 17(H) 6 - 16 mmol/L 06/01/2025 5:16 PM EDT [facility] Total Calcium, Plasma 8.3(L) 8.9 - 10.2 mg/dL 06/01/2025 5:16 PM EDT [facility] Total Protein 6.4 6.3 - 7.9 g/dL 06/01/2025 5:16 PM EDT [facility] Albumin, Plasma 3.3(L) 3.5 - 5.2 g/dL 06/01/2025 5:16 PM EDT [facility] AST, Plasma 19 10 - 35 U/L 06/01/2025 5:16 PM EDT [facility] ALT, Plasma <5(L) 10 - 35 U/L 06/01/2025 5:16 PM EDT [facility] Alkaline Phosphatase, Plasma 224(H) 46 - 142 U/L 06/01/2025 5:16 PM EDT [facility] Total Bilirubin, Plasma 0.3 0.2 - 1.1 mg/dL 06/01/2025 5:16 PM EDT [facility] eGFRcr 13.1 mL/min/1.7 3m*2 06/01/2025 5:16 PM EDT [facility] Comment:Reported eGFRcr in m L/min/1.73m2 is based the CKD-EPI 2020 equation that does not use a race coefficient. Blood Venous blood specimen / Unknown Venipuncture / Unknown 06/01/2025 4:47 PM EDT 06/01/2025 4:53 PM EDT us Klarissa Montes [place] DO LAB BLOOD ORDERABLES Final Re sult [facility] [address] [place] [address] documented in this encounter Visit Diagnoses Diagnosis Acute hypoxic respiratory failure- Primary Acute pulmonary edema (CMS/HCC) Unspecified acute edema of lung End-stage renal disease needing dialysis (CMS/HCC) ESRD (end stage renal disease) End stage renal disease Unspecified complication of cardiac and vascular prosthetic device, implant and graft, subsequent encounter Severe protein-calorie malnutrition (CMS/HCC) Other severe protein-calorie malnutrition Hypertension, unspecified type Hypothyroidism, unspecified type Hyperlipidemia, unspecified hyperlipidemia type Anemia, unspecified type Mood disorder (CMS/HCC) Unspecified episodic mood disorder Acute hypoxic respiratory failure Chronic obstructive pulmonary disease with acute exacerbation (CMS/HCC) Coronary artery disease involving coronary bypass graft of 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 pectoris History of glaucoma Other personal history of disorders of nervous system and sense organs Chronic congestive heart failure, unspecified heart failure type ESRD (end stage renal disease) End stage renal disease CHF (congestive heart failure) Congestive heart failure, unspecified Pleural effusion Unspecified pleural effusion Acute pulmonary edema (CMS/HCC) Unspecified acute edema of lung GI bleed Unspecified, hemorrhage of gastrointestinal tract CAD (coronary artery disease) Coronary atherosclerosis of unspecified type of vessel, [place] or graft Anemia Unspecified anemia Severe protein-calorie malnutrition (CMS/HCC) Other severe protein-calorie malnutrition Acute encephalopathy HTN (hypertension) Unspecified essential hypertension HLD (hyperlipidemia) Other and unspecified hyperlipidemia Hypothyroidism Unspecified hypothyroidism Mood disorder (CMS/HCC) Unspecified episodic mood disorder History of glaucoma Other personal history of disorders of nervous system and sense organs Chronic obstructive pulmonary disease with acute exacerbation (CMS/HCC) documented in this encounter Admitting Diagnoses Diagnosis Acute pulmonary edema (CMS/HCC) Unspecified acute edema of lung GI bleed Unspecified, hemorrhage of gastrointestinal tract documented in this encounter Administered Medications Inactive Administered Medications - up to 3 most recent administrations Medication Order MAR Action Action Date Dose Rate Site amLODIPine (Norvasc) tablet 10 mg 10 mg, Oral, Daily, First dose (after last modification) on 06/10/25 at 0900, Until Discontinued Given 06/10/2025 2:03 PM EDT 10 mg amLODIPine (Norvasc) tablet 5 mg 5 mg, Oral, Daily, First dose on Tue06/07/25 at 0900, Until Discontinued Given 06/07/2025 11:06 AM EDT 5 mg amLODIPine (Norvasc) tablet 5 mg 5 mg, Oral, Daily, First dose (after last modification) on Tue06/08/25 at 0900, Until Discontinued Given 06/09/2025 8:57 AM EDT 5 mg Given 06/08/2025 10:00 AM EDT 5 mg aspirin chewable tablet 81 mg 81 mg, Oral, Daily, First dose on Tue06/02/25 at 1610, Until Discontinued, Routine Given 06/09/2025 8:31 AM EDT 81 mg Given 06/08/2025 10:00 AM EDT 81 mg Given 06/07/2025 11:07 AM EDT 81 mg atorvastatin (Lipitor) tablet 80 mg 80 mg, Oral, Nightly, First dose on Tue06/02/25 at 2100, Until Discontinued Given 06/09/2025 9:38 PM EDT 80 mg Given 06/08/2025 9:00 PM EDT 80 mg Given 06/07/2025 8:54 PM EDT 80 mg bisacodyl (Dulcolax) EC tablet 10 mg 10 mg, Oral, Once, 1 dose, On Tue06/07/25 at 1130, Routine Given 06/07/2025 11:09 AM EDT 10 mg bisacodyl (Dulcolax) suppository 10 mg 10 mg, Rectal, Daily, First dose on Tue06/04/25 at 1100, Until Discontinued, Routine Given 06/04/2025 8:09 PM EDT 10 mg bisacodyl (Dulcolax) suppository 10 mg 10 mg, Rectal, Daily PRN, Starting on Tue06/09/25 at 1700, Until Tue06/10/25 at 1854, Routine, constipation carvedilol (Coreg) tablet 12.5 mg 12.5 mg, Oral, 2 times daily with meals, First dose on Tue06/07/25 at 1445, Until Discontinued, Routine Given 06/10/2025 2:04 PM EDT 12.5 mg Given 06/09/2025 8:30 AM EDT 12.5 mg Given 06/08/2025 4:30 PM EDT 12.5 mg cefTRIAXone (Rocephin) 2 g in sodium chloride 0.9% 100 mL IVPB (vial adapter required) 2 g, Intravenous, Every 24 hours, First dose on 06/01/25 at 1905, Until Discontinued, STAT New Bag 06/01/2025 7:22 PM EDT 2 g 220 mL /hr dextrose 10 % (D10W) bolus 125 mL 125 mL, Intravenous, Every 15 min PRN, Starting on Tue06/05/25 at 0426, Until Tue06/05/25 at 1009, Administer over 15 Minutes, Routine, low blood sugar BG 51-89 mg/dL New Bag 06/05/2025 4:36 AM EDT 125 mL 500 mL/hr doxazosin (Cardura) tablet 2 mg 2 mg, Oral, Nightly, First dose on Tue06/02/25 at 2100, Until Discontinued, Routine Given 06/09/2025 9:38 PM EDT 2 mg Given 06/08/2025 9:00 PM EDT 2 mg Given 06/07/2025 8:55 PM EDT 2 mg escitalopram (Lexapro) tablet 10 mg 10 mg, Oral, Daily, First dose on Tue06/02/25 at 1710, Until Discontinued, Routine Given 06/09/2025 8:31 AM EDT 10 mg Given 06/08/2025 10:00 AM EDT 10 mg Given 06/07/2025 11:07 AM EDT 10 mg eucerin cream 1 Application Topical, 2 times daily, First dose on 06/03/25 at 2100, Until Discontinued, Routine Given 06/10/2025 8:51 AM EDT 1 Application Given 06/09/2025 9:47 PM EDT 1 Application Given 06/09/2025 8:57 AM EDT 1 Application ezetimibe (Zetia) tablet 10 mg 10 mg, Oral, Daily, First dose on Tue06/02/25 at 0900, Until Discontinued, Routine Given 06/09/2025 8:31 AM EDT 10 mg Given 06/08/2025 10:00 AM EDT 10 mg Given 06/07/2025 11:07 AM EDT 10 mg fentaNYL (Sublimaze) injection Intravenous, As needed, Starting on Tue06/04/25 at 1410, Until Tue06/04/25 at 1410, Routine, Intraprocedure Given 06/04/2025 2:10 PM EDT 25 mcg heparin (porcine) injection 5,000 Units 5,000 Units, Subcutaneous, Every 8 hours scheduled, First dose on Tue06/05/25 at 1100, Until Discontinued, Routine Given 06/09/2025 9:38 PM EDT 5,000 Units Right Upper Abdomen Given 06/09/2025 1:01 PM EDT 5,000 Units R ight Upper Arm (Back) Given 06/08/2025 9:00 PM EDT 5,000 Units R ight Lower Abdomen hydrALAZINE (Apresoline) tablet 25 mg 25 mg, Oral, Once, 1 dose, On Tue06/03/25 at 0045, Routine Given 06/03/2025 12:10 AM EDT 25 mg hydrALAZINE (Apresoline) tablet 25 mg 25 mg, Oral, 3 times daily, First dose (after last reorder) on Tue06/03/25 at 0900, Until Discontinued, Routine Given 06/05/2025 8:44 PM EDT 25 mg Given 06/05/2025 5:18 PM EDT 25 mg Given 06/05/2025 9:10 AM EDT 25 mg hydrALAZINE (Apresoline) tablet 50 mg 50 mg, Oral, 3 times daily, First dose (after last modification) on Tue06/06/25 at 0900, Until Discontinued, Routine Given 06/07/2025 8:39 AM EDT 50 mg Given 06/06/2025 9:05 PM EDT 50 mg Given 06/06/2025 3:14 PM EDT 50 mg hydrALAZINE (Apresoline) tablet 75 mg 75 mg, Oral, 3 times daily, First dose (after last modification) on Tue06/07/25 at 1600, Until Discontinued, Routine Given 06/10/2025 2:04 PM EDT 75 mg Given 06/09/2025 9:37 PM EDT 75 mg Given 06/09/2025 5:00 PM EDT 75 mg iohexol (OMNIPaque) 300 MG/ML injection 100 mL 100 mL, Intravenous, Once in imaging, 1 dose, Starting on Tue06/04/25 at 1424, Until Tue06/04/25 at 1424, Routine, Imaging Protocol Orders Given 06/04/2025 2:24 PM EDT 40 mL isosorbide mononitrate ER (Imdur) 24 hr tablet 120 mg 120 mg, Oral, Daily, First dose on Tue06/07/25 at 1130, Until Discontinued, Routine Given 06/10/2025 2:04 PM EDT 120 mg Given 06/09/2025 8:50 AM EDT 120 mg Given 06/08/2025 10:00 AM EDT 120 mg Zack powder 1 packet 1 packet, Oral, Daily, First dose on Tue06/07/25 at 1015, Until Discontinued, Routine Given 06/10/2025 2:14 PM EDT 1 packet Given 06/09/2025 8:57 AM EDT 1 packet Given 06/08/2025 10:00 AM EDT 1 packet levothyroxine (Synthroid, Levoxyl) tablet 75 mcg 75 mcg, Oral, Daily before breakfast, First dose on Tue06/02/25 at 0740, Until Discontinued, Routine Given 06/02/2025 8:14 AM EDT 75 mcg levothyroxine (Synthroid, Levoxyl) tablet 88 mcg 88 mcg, Oral, Daily before breakfast, First dose (after last modification) on Tue06/03/25 at 0730, Until Discontinued, Routine Given 06/09/2025 8:31 AM EDT 88 mcg Given 06/08/2025 8:00 AM EDT 88 mcg Given 06/07/2025 11:07 AM EDT 88 mcg lidocaine (Xylocaine) 1 % injection Intradermal, As needed, Starting on Tue06/04/25 at 1403, Until Tue06/04/25 at 1403, Routine, Intraprocedure Given 06/04/2025 2:03 PM EDT 5 mL oxyCODONE (Roxicodone) immediate release tablet 10 mg 10 mg, Oral, Every 6 hours PRN, Starting on Tue06/09/25 at 0845, Until Tue06/10/25 at 1854, STAT, severe pain Given 06/10/2025 10:35 AM EDT 10 mg Given 06/09/2025 11:39 PM EDT 10 mg Given 06/09/2025 5:00 PM EDT 10 mg oxyCODONE (Roxicodone) immediate release tablet 5 mg 5 mg, Oral, Every 6 hours PRN, Starting on Tue06/02/25 at 0036, Until Tue06/09/25 at 0846, STAT, severe pain Given 06/09/2025 8:34 AM EDT 5 mg Given 06/08/2025 10:36 PM EDT 5 mg Given 06/08/2025 4:29 PM EDT 5 mg pantoprazole (Protonix) EC tablet 40 mg 40 mg, Oral, Daily, First dose on Tue06/02/25 at 0900, Until Discontinued Given 06/02/2025 8:14 AM EDT 40 mg pantoprazole (Protonix) EC tablet 40 mg 40 mg, Oral, Daily, First dose on Tue06/05/25 at 0900, Until Discontinued, Routine Given 06/09/2025 8:30 AM EDT 40 mg Given 06/08/2025 10:00 AM EDT 40 mg Given 06/07/2025 11:07 AM EDT 40 mg pantoprazole (Protonix) injection 40 mg 40 mg, Intravenous, 2 times daily, First dose on Tue06/02/25 at 2100, Until Discontinued, Routine Given 06/04/2025 8:42 AM EDT 40 mg Given 06/03/2025 8:09 PM EDT 40 mg Given 06/03/2025 8:29 AM EDT 40 mg senna (Senokot) tablet 17.2 mg 17.2 mg (2 tablet), Oral, 2 times daily, First dose (after last modification) on Tue06/04/25 at 2100, Until Discontinued, Routine Given 06/09/2025 9:38 PM EDT 17.2 mg Given 06/09/2025 8:30 AM EDT 17.2 mg Given 06/08/2025 9:00 PM EDT 17.2 mg sevelamer carbonate (Renvela) tablet 800 mg 800 mg, Oral, 3 times daily with meals, First dose on Tue06/03/25 at 0830, Until Discontinued, RoutineIndications:ESRD on Dialysis Given 06/09/2025 5:07 PM EDT 800 mg Given 06/09/2025 12:58 PM EDT 800 mg Given 06/09/2025 8:30 AM EDT 800 mg sodium chloride 0.9 % flush 10 mL 10 mL, Intravenous, Every 12 hours, First dose on 06/01/25 at 2150, Until Discontinued, Routine Given 06/02/2025 8:50 PM EDT 10 mL Given 06/02/2025 8:17 AM EDT 10 mL Given 06/02/2025 8:14 AM EDT 10 mL sodium chloride 0.9 % flush 10 mL 10 mL, Intravenous, Every 12 hours, First dose on 06/02/25 at 1340, Until Discontinued, Routine Given 06/03/2025 1:33 AM EDT 10 mL Given 06/02/2025 3:11 PM EDT 10 mL sodium chloride 0.9 % infusion 10 mL/hr, Intravenous, Continuous, Starting on Tue06/04/25 at 1400, Until Tue06/10/25 at 1854, Routine documented in this encounter Active and Recently Administered Medications Times are shown in EDT. Scheduled Medication Order 06/08/2025 06/09/2025 06/10/2025 amLODIPine (Norvasc) tablet 10 mg 10 mg, Oral, Daily, First dose (after last modification) on Tue06/10/25 at 0900, Until Discontinued 1403 (Given - Provid er: Mayra Shankar, CHAO) amLODIPine (Norvasc) tablet 5 mg (CANCELED) 5 mg, Oral, Daily, First dose (after last modification) on 06/08/25 at 0900, Until Discontinued 1000 (Given - Provider: Hazel Pahm RN) 0857 (Given - Provider: Hazel Pham, CHAO) aspirin chewable tablet 81 mg 81 mg, Oral, Daily, First dose on Tue06/02/25 at 1610, Until Discontinued, Routine 1000 (Given - Provider: Hazel Pham RN) 0831 (Given - Provider: Hazel Pham, CHAO) 0849 (Not Given - Provider: Mayra Shankar, CHAO - Reason: Patient/family refused) atorvastatin (Lipitor) tablet 80 mg 80 mg, Oral, Nightly, First dose on 06/02/25 at 2100, Until Discontinued 2100 (Given - Provider: Aranza Santos RN) 2138 (Given - Provider: Sabrina Lazcano RN) carvedilol (Coreg) tablet 12.5 mg 12.5 mg, Oral, 2 times daily with meals, First dose on Tue06/07/25 at 1445, Until Discontinued, Routine 1000 (Given - Provider: Hazel Pham RN)1630 (Given - Provider: Hazel Pham RN) 0830 (Given - Provider: Hazel Pham RN)1707 (Not Given - Provider: Hazel Pham RN - Reason: Order parameters not met - Comment: HR less than 60) 1404 (Given - Provider: Mayra Shankar RN)1730 (Canceled Entry - Provider: Automatic Discharge Provider - Comment: Automatically canceled at discontinue of medication order) doxazosin (Cardura) tablet 2 mg 2 mg, Oral, Nightly, First dose on 06/02/25 at 2100, Until Discontinued, Routine 2100 (Given - Provider: Aranza Santos RN) 2138 (Given - Provider: Sabrina Lazcano, CHAO) escitalopram (Lexapro) tablet 10 mg 10 mg, Oral, Daily, First dose on 06/02/25 at 1710, Until Discontinued, Routine 1000 (Given - Provider: Hazel Pham RN) 0831 (Given - Provider: Hazel Pham RN) 0849 (Not Given - Provider: Mayra Shankar RN - Reason: Patient/family refused) eucerin cream 1 Application Topical, 2 times daily, First dose on Tue06/03/25 at 2100, Until Discontinued, Routine 1000 (Given - Provider: Hazel Pham RN)2101 (Given - Provider: Aranza Santos RN) 0857 (Given - Provider: Hazel Pham RN)2147 (Given - Provider: Sabrina Lazcano RN) 0851 (Given - Provider: Mayra Shankar RN) ezetimibe (Zetia) tablet 10 mg 10 mg, Oral, Daily, First dose on 06/02/25 at 0900, Until Discontinued, Routine 1000 (Given - Provider: Hazel Pham RN) 0831 (Given - Provider: Hazel Pham RN) 0850 (Not Given - Provider: Mayra Shankar RN - Reason: Patient/family refused) heparin (porcine) injection 5,000 Units 5,000 Units, Subcutaneous, Every 8 hours scheduled, First dose on Tue06/05/25 at 1100, Until Discontinued, Routine 0653 (Given - Provider: Aranza Santos RN)1300 (Given - Provider: Hazel Pham RN)2100 (Given - Provider: Aranza Santos RN) 0539 (Not Given - Provider: Aranza Santos RN - Reason: Patient/family refused)1301 (Given - Provider: Hazel Pham RN)2138 (Given - Provider: Sabrina Lazcano RN) 0504 (Not Given - Provider: Sabrina Lazcano RN - Reason: Patient/family refused)1412 (Not Given - Provider: Mayra Shankar RN - Reason: Patient/family refused) hydrALAZINE (Apresoline) tablet 75 mg 75 mg, Oral, 3 times daily, First dose (after last modification) on Tue06/07/25 at 1600, Until Discontinued, Routine 1000 (Given - Provider: Hazel Pham RN)1629 (Given - Provider: Hazel Pham RN)2100 (Given - Provider: Aranza Santos RN) 0831 (Given - Provider: Hazel Pham RN)1700 (Given - Provider: Hazel Pham RN)2137 (Given - Provider: Sabrina Lazcano RN) 1404 (Given - Provider: Mayra Shankar RN)1600 (Canceled Entry - Provider: Automatic Discharge Provider - Comment: Automatically canceled at discontinue of medication order) isosorbide mononitrate ER (Imdur) 24 hr tablet 120 mg 120 mg, Oral, Daily, First dose on Tue06/07/25 at 1130, Until Discontinued, Routine 1000 (Given - Provider: Hazel Pham RN) 0850 (Given - Provider: Hazel Pham RN) 1404 (Given - Provider: Mayra Shankar, CHAO) Zack powder 1 packet 1 packet, Oral, Daily, First dose on Tue06/07/25 at 1015, Until Discontinued, Routine 1000 (Given - Provider: Hazel Pham RN) 0857 (Given - Provider: Hazel Pham RN) 1414 (Given - Provider: Mayra Shankar RN) levothyroxine (Synthroid, Levoxyl) tablet 88 mcg 88 mcg, Oral, Daily before breakfast, First dose (after last modification) on Tue06/03/25 at 0730, Until Discontinued, Routine 0800 (Given - Provider: Hazel Pham RN) 0831 (Given - Provider: Hazel Pham RN) 0849 (Not Given - Provider: Mayra Shankar RN - Reason: Patient/family refused) pantoprazole (Protonix) EC tablet 40 mg 40 mg, Oral, Daily, First dose on Tue06/05/25 at 0900, Until Discontinued, Routine 1000 (Given - Provider: Hazel Pham RN) 0830 (Given - Provider: Hazel Pham RN) 0849 (Not Given - Provider: Mayra Shankar RN - Reason: Patient/family refused) senna (Senokot) tablet 17.2 mg 17.2 mg (2 tablet), Oral, 2 times daily, First dose (after last modification) on Tue06/04/25 at 2100, Until Discontinued, Routine 1000 (Given - Provider: Hazel Pham RN)2100 (Given - Provider: Aranza Santos RN) 0830 (Given - Provider: Hazel Pham RN)2138 (Given - Provider: Sabrina Lazcano RN) 0851 (Not Given - Provider: Mayra Shankar RN - Reason: Patient/family refused) sevelamer carbonate (Renvela) tablet 800 mg 800 mg, Oral, 3 times daily with meals, First dose on Tue06/03/25 at 0830, Until Discontinued, Routine 1000 (Given - Provider: Hazel Pham RN)1258 (Given - Provider: Hazel Pham RN)1630 (Given - Provider: Hazel Pham RN) 0830 (Given - Provider: Hazel Pham RN)1258 (Given - Provider: Hazel Pham RN)1707 (Given - Provider: Hazel Pham RN) 0849 (Not Given - Provider: Mayra Shankar RN - Reason: Patient/family refused)1412 (Not Given - Provider: Mayra Shankar RN - Reason: Patient/family refused)1730 (Canceled Entry - Provider: Automatic Discharge Provider - Comment: Automatically canceled at discontinue of medication order) Continuous Medication Order 06/08/2025 06/09/2025 06/10/2025 sodium chloride 0.9 % infusion 10 mL/hr, Intravenous, Continuous, Starting on 06/04/25 at 1400, Until 06/10/25 at 1854, Routine PRN Medication Order 06/08/2025 06/09/2025 06/10/2025 bisacodyl (Dulcolax) suppository 10 mg 10 mg, Rectal, Daily PRN, Starting on 06/09/25 at 1700, Until 06/10/25 at 1854, Routine, constipation oxyCODONE (Roxicodone) immediate release tablet 10 mg 10 mg, Oral, Every 6 hours PRN, Starting on 06/09/25 at 0845, Until 06/10/25 at 1854, STAT, severe pain 1300 (Given - Provider: Hazel Pham RN)1700 (Given - Provider: Hazel Pham RN)2339 (Given - Provider: Sabrina Lazcano RN) 1035 (Given - Provider: Lizzette Cho RN) oxyCODONE (Roxicodone) immediate release tablet 5 mg (CANCELED) 5 mg, Oral, Every 6 hours PRN, Starting on 06/02/25 at 0036, Until 06/09/25 at 0846, STAT, severe pain 0249 (Given - Provider: Aranza Santos RN)1049 (Given - Provider: Hazel Pham RN)1050 (Canceled Entry - Provider: Hazel Pham RN)1629 (Given - Provider: Hazel Pham RN)2236 (Given - Provider: Aranza Santos RN) 0834 (Given - Provider: Hazel Pham RN) documented in this encounter Additional Health Concerns Active Problems Noted Date Diagnosed Date Heart Failure diagnosis knowledge deficit 2024 Fluid retention / overload 06/19/2025 Sodium intake 06/19/2025 Heart failure medication adherence 06/19/2025 Exercise regimen 06/19/2025 Heart failure maintenance 06/19/2025 Heart failure progression and care needs 025 Infection Onset Date Last Indicated Resolved Time COVID-19 Rule-Out 06/01/2025 06/01/2025 06/01/2025 7:59 PM EDT Assessment Noted Time A Body Mass Index follow-up plan has been documented for the patient 06/10/2025 2:59 PM EDT documented as of this encounter Care Teams Manager Of Finance Relationship Specialty Start Date End Date Rosemarie Riley, STEVE [address] [place] [address] PCP - General 04/02/25 Haydee Mccloud Associate Dean Of [employer] Commanding Officer 06/03/25 06/25/25 documented as of this encounter
--- OUTSIDE RECORDS SUMMARY | 2025-06-23 17:27 | XMS_ITS | Encounter Summary ---
Author Organization [facility] ([place], [place], [place], [place], [place]) Address [address] [place] [address] Care Team Providers Care Lime Trimmer Name Role Phone Osmani Becker MD Primary Care Provider [phone] Mindy Mckeon MD Unavailable Reason for Visit * Auth/Cert (Routine) Specialty Diagnoses / Procedures Referred By Contshakeel t Referred To Contact Diagnoses Fluid overload Fluid overload [address] Telemetry [address] [place] [address] Phone: tel: fax: [address] Tele[address] [place] [address] Phone: tel: fax: Referral ID Status Reason Start Date Expiration Date Visits Re quested Visits Authorized [id number] 1 1 Encounter Details Date Type Department Care Team (Late st Contact Info) Description 06/23/2025 6:27 PM EDT - 06/29/2025 3:55 PM EDT Hospital Encounter [address] Telemetry [address] [place] [address] Dajuan Banuelos MD [address] [place], [place] [phone] Vlad Waters PA-C [address] [place] [address] Mundo Díaz MD [address] [place] [address] Mass of lung; Pleural effusion on right Discharge Disposition: Home or Self Care Social [...] shut off services in your home? No 06/23/2025 Interpersonal Safety Answer Date Record ed How often does anyone, abran ying family and friends, physically hurt you? Never 06/23/2025 How often does anyone, abran ying family and friends, insult or talk down to you? Never 06/23/2025 How often does anyone, abran ying family and friends, threaten you with harm? Never 06/23/2025 How often does anyone, abran ying family and friends, scream or curse at you? Never 06/23/2025 Housing Stability Answer Date Recorded What is your living situation today? I have a [facility] place to live 06/23/[address] you li ve. Do you have problems with any of the following? None of the above 06/23/2025 Food Insecurity Answer Date Recorded Within the past 12 months, y ou worried that your food would run out before you got money to buy more. Never true 06/23/2025 Within the past 12 months, t he food you bought just didn't last and you didn't have money to get more. Never true 06/23/2025 Transportation Needs Answer Date Record ed In the past 12 months, has l ack of reliable transportation kept you from medical appointments, meetings, work or from getting things needed for daily living? No 06/23/2025 Financial Resource Strain Answer Date R ecorded How hard is it for you to pa y for the very basics like food, housing, medical care, and heating? Would you say it is: Not hard at all 06/23/2025 Employment Answer Date Recorded Do you want help finding or keeping work or a job? I do not need or want help 06/23/2025 Family and Community Support Answer Zackery e Recorded If for any reason you need h elp with day-to-day activities such as bathing, preparing meals, shopping, managing finances, etc., do you get the help you need? I don't need any help 06/23/2025 Feeling Lonely or Isolated 0 06/23 Educational Attainment Answer Date Ruiz rded Do you speak a language other than Guyanese at [facility]? No 06/23/2025 Do you want help with school or training? For example, starting or completing job training or getting a high school diploma, GED or equivalent. No 06/23/2025 Physical Activity Answer Date Recorded Number of minutes of exercise per week 0 06/23/2025 Self Management Answer Date Recorded Because of a physical, menta l, or emotional condition, do you have serious difficulty concentrating, remembering, or making decisions? (5 years or older) No 06/23/2025 Because of a physical, menta l, or emotional condition, do you have difficulty doing errands alone such as visiting a doctor's office or shopping? (15 years or older) No 06/23/2025 Substance Use Answer Date Recorded How many times in the past y ear have you used prescription drugs for non-medical reasons? Never 06/23/2025 How many times in the past year have you used [place] legal drugs? Never 06/23/2025 Mental Health Answer Date Recorded Calculation of above two rows 0 Comments No Sex and Gender Information Value Date Recorded Sex Assigned at Female 02/02/2024 4:23 PM CDT Legal Sex Female 4:04 PM CDT Gender Identity Female 02/02/2024 4:23 PM CDT Sexual Orientation Not on file documented as of this encounter Last Filed Vital Signs Vital Sign Reading Time Taken Comments Blood Pressure 173/80 06/29/2025 8:25 AM EDT Pulse 58 06/29/2025 8:25 AM EDT Temperature 37 C (98.6 F) 06/29/2025 8:25 AM EDT Respiratory Rate 16 06/28/2025 7:27 PM EDT Oxygen Saturation 95% 06/29/2025 1:46 PM EDT Inhaled Oxygen Concentration - - Weight 57.9 kg (127 lb 10.3 oz) 06/28/2025 5:59 AM EDT Height 170.2 cm (5' 7.01 ) 06/23/2025 7:17 PM ED T Body Mass Index 19.99 06/23/2025 7:17 PM EDT documented in this encounter Functional Status * Are you [...] Traci Fowler RN documented in this encounter Discharge Summaries * Mundo Díaz MD - 06/29/2025 8:20 AM EDT HOSPITALIST DISCHARGE SUMMARY Patient: Mar Waldron Date of Admission: 06/23/2025 Date of Discharge: 06/29/2025 Primary Care Provider: @[email or web address]@ Hospital Problem List Patient Active Problem List Diagnosis Hypertensive urgency ESRD (end stage renal disease) on dialysis (HCC) Pancytopenia (HCC) Diabetes mellitus (HCC) Hypertension Thyroid disease Pleural effusion Arthritis ESRD needing dialysis (HCC) Acute respiratory failure with hypoxemia (HCC) Acute on chronic anemia Acute renal failure superimposed on stage 4 chronic kidney disease, unspecified acute renal failuretype (HCC) Volume overload Fluid overload CHF exacerbation (HCC) Summary of Hospital Stay: Mar Waldron is a 55 y.o. female with a history of arthritis, CHF, CKD, COPD, hypertension, and hypothyroidism presents to [facility] in [place], [place] for further evaluation andmanagement of shortness of breath. Chart review reveals patient had recent discharge on 06/10/2025 for similar complaints. Patient states starting day prior to admission patient began to have increased shortness of breath. Patient states she missed dialysis on Tuesday due to a family member passing away. Patient states however she did receive dialysis day prior to admission. Patient states that hershortness of breath worsened after dialysis and believes that it is due to a pleural effusion likebefore . Patient sought evaluation at [facility] where patient was found to be in acute CHF exacerbation, NSTEMI, and with moderate pleural effusion. Patient was subsequently transferred to [facility] for nephrology coverage and higher level of care. Patient is being admitted for continued monitoring, evaluation, and treatment of acute CHF exacerbation, NSTEMI, and pleural effusion, with consultation to cardiology and nephrology. Patient is resting at time of admission, in no acute distress. All patient questions were answered at this time. Patient is agreeable to admission and plan. NSTEMI Severe anemia History of CAD prior stenting. Thrombocytopenia>>>chronic -Heparin infusion>>> Held due to low Plat - Packed RBCs to keep hemoglobin above 7.>>> 6.4> 7.2 >> 6.8> 8.7> 8.8 day of discharge . - Patient is currently on aspirin atorvastatin Coreg Imdur 120 - Cont Protonix twice daily. Not candidate for stents or LHC due Low CBC ( Hgb & plat) Acute diastolic heart failure exacerbation Complicated by ESRD EF 55% - Coreg, treat NSTEMI, ultrafiltration, treat anemia, - left thoracentesis done 06/24/2025 >>>100mL removed. - Oxygen low-salt diet - Continue Tuesday dialysis Diabetes sliding scale insulin Thrombocytopenia/anemia - Unexplained - ESRD, liver disease, bone marrow failure. - patient refused EGD US RUQ ordered per GI can be followed as OP Pt is compensated except from low Plat & Low albumin COPD continue as needed inhalers. Hypothyroidism continue levothyroxine. Renal mass concerning for malignancy. Follow-up urology. Protein calorie malnutrition present on admission Boost twice daily PCP follow up May benefit from appetite stimulant Objective Vitals: Temp: [97.5 ??F (36.4 ??C)-98.6 ??F (37 ??C)] 98.6 ??F (37 ??C) Pulse: [56-64] 58 Resp: [12-16] 16 BP: (149-191)/(59-88) 173/80 Physical exam on day of discharge: General: Alert and interactive, in mild distress. Eyes: Conjunctiva appropriate, Sclera white HENT: Normocephalic, adequate hearing, moist oral mucosa Lungs: Increased work of breathing, diminished breath sounds bilateral bases Heart: Tachycardic Abdomen: Soft, non-tender, non-distended, active bowel sounds Neurologic: Awake, alert and oriented X 3, sensory intact, no focal deficits Psychiatric: Cooperative, appropriate mood and affect Labs: Results for orders placed or performed during the hospital encounter of 06/23/25 (from the past 24 hours) Glucose, Nova Meter Status: None Collection Time: 06/28/25 6:50 PM Result Value Ref Range POC-GLUCOSE 83 70 - 110 mg/dL Bellows Tester [id number] Glucose, Nova Meter Status: None Collection Time: 06/28/25 7:58 PM Result Value Ref Range POC-GLUCOSE 107 70 - 110 mg/dL Bellows Tester [id number] Glucose, Nova Meter Status: Abnormal Collection Time: 06/29/25 6:06 AM Result Value Ref Range POC-GLUCOSE 181 (H) 70 - 110 mg/dL Bellows Tester [id number] CBC with Automated Diff Status: Abnormal Collection Time: 06/29/25 10:30 AM Result Value Ref Range WBC 5.2 4.0 - 10.0 K/??L RBC 3.10 (L) 3.93 - 5.22 M/??L Hemoglobin 8.8 (L) 11.2 - 15.7 GM/DL Hematocrit 29.2 (L) 34.1 - 44.9 % MCV 94 79 - 95 fL MCH 28.4 25.6 - 32.2 pg MCHC 30.1 (L) 32.2 - 35.5 GM/DL RDW 18.5 (H) 11.7 - 14.4 % Platelets 51 (L) 140 - 375 K/CU MM MPV 11.1 9.4 - 12.3 fL % Neutros 72 (H) 34 - 71 % % Lymphs 16 (L) 19 - 52 % % Monos 7 5 - 13 % % Eos 4 1 - 6 % % Baso 1 0 - 1 % NRBC Absolute <0.01 0 - 0.012 K/ul # Neutros 3.78 1.56 - 6.13 K/??L # Lymphs 0.81 (L) 1.18 - 3.74 K/??L # Monos 0.37 0.24 - 0.86 K/??L # Eos 0.22 0.04 - 0.36 K/??L # Baso 0.04 0.01 - 0.08 K/??L Immature Granulocytes-Relative 0.40 0.01 - 0.43 % # IG <0.03 0.00 - 0.03 K/uL Radiology: XR chest 2 views Final Result No pneumothorax post thoracentesis. Pulmonary vascular congestion with right lower lobe consolidation and moderate right pleural effusion. Images reviewed, interpreted, and dictated by Dr. Nas Rebolledo. Transcribed by Kalyan Wisdom PA-C US THORACENTESIS LT Final Result Technically successful sonographic-guided left thoracentesis with tube insertion as above. Images reviewed, interpreted, and dictated by Dr. Nas Rebolledo. Transcribed by Kalyan Wisdom PA-C ECHO COMPLETE (DOPPLER / COLOR) W OR WO CONTRAST Final Result XR chest AP portable Final Result Impression: Probable acute pulmonary edema pattern Authenticated and Discharge Information Medications on Discharge: Your medication list START taking these medications Instructions Comments Quantity Refills ipratropium-albuteroL 0.5 mg-3 mg(2.5 mg base)/3 mL nebulizer solution Commonly known as: DUO-NEB Inhale 3 mLs by nebulization every 6 (six) hours as needed for wheezing for up to 30 days. 300 mL 0 nitroglycerin 0.4 MG SL tablet Commonly known as: NITROSTAT Put 1 pill under tongue every 5min as needed for chest pain.No more than 3 doses in 15min.Call 911 if pain unrelieved 5min after 1st dose. 90 tablet 0 CHANGE how you take these medications Instructions Comments Quantity Refills hydrALAZINE 25 MG tablet Commonly known as: APRESOLINE What changed: medication strength additional instructions Another medication with the same name was removed. Continue taking this medication, and follow the directions you see here. Take 3 tablets (75 mg total) by mouth 4 (four) times daily for 30 days Look-alike/Sound-alike medication. 360 tablet 0 CONTINUE taking these medications Instructions Comments Quantity Refills albuterol 90 mcg/actuation inhaler Inhale 2 puffs by mouth every 6 (six) hours as needed for wheezing. 0 amLODIPine 10 MG tablet Commonly known as: NORVASC Take 1 tablet (10 mg total) by mouth daily. 0 aspirin 81 MG chewable tablet Take 1 tablet (81 mg total) by mouth daily for 30 days. 30 tablet 0 atorvastatin 80 MG tablet Commonly known as: LIPITOR Take 1 tablet (80 mg total) by mouth nightly. 0 calcitRIOL 0.25 MCG capsule Commonly known as: ROCALTROL Take 1 capsule (0.25 mcg total) by mouth 3 (three) times a week TUE/TUE/TUE Administered at dialysis as directed . 0 carvediloL 12.5 MG tablet Commonly known as: COREG Take 1 tablet (12.5 mg total) by mouth 2 (two) times daily. 0 diphenoxylate-atropine 2.5-0.025 mg per tablet Commonly known as: LOMOTIL Take 1 tablet by mouth every 6 (six) hours as needed for diarrhea. Max Daily Amount: 4 tablets 0 doxazosin 2 MG tablet Commonly known as: CARDURA Take 1 tablet (2 mg total) by mouth nightly. 0 escitalopram 10 MG tablet Commonly known as: LEXAPRO Take 1 tablet (10 mg total) by mouth daily. 0 ezetimibe 10 mg tablet Commonly known as: ZETIA Take 1 tablet (10 mg total) by mouth nightly. 0 isosorbide mononitrate 60 MG 24 hr tablet Commonly known as: IMDUR Take 2 tablets (120 mg total) by mouth daily. 0 levothyroxine 88 MCG tablet Commonly known as: SYNTHROID Take 1 tablet (88 mcg total) by mouth in the morning. 0 Mircera 200 mcg/0.3 mL Syrg Generic drug: epoetin beta, methoxy peg Inject 200 mcg as directed every 14 (fourteen) days Administered at dialysis as directed . 0 oxyCODONE-acetaminophen 10-325 mg per tablet Commonly known as: PERCOCET Take 1 tablet by mouth every 6 (six) hours as needed for pain. 0 pantoprazole 20 MG tablet Commonly known as: PROTONIX Take 1 tablet (20 mg total) by mouth daily. 0 topiramate 25 MG tablet Commonly known as: TOPAMAX Take 1 tablet (25 mg total) by mouth 2 (two) times daily. 0 Where to Get Your Medications These medications were sent to [facility] [address] [place] [address] [address] [facility] [address] [address] aspirin 81 MG chewable tablet hydrALAZINE 25 MG tablet ipratropium-albuteroL 0.5 mg-3 mg(2.5 mg base)/3 mL nebulizer solution nitroglycerin 0.4 MG SL tablet Contact information for follow-up Osmani Becker MD Specialty: General Internal Medicine Relationship: PCP - General [address] [place] [address] [address] [place] [address] Next Steps: Go on 07/04/2025 Instructions: appt time is 11am Nephrology Next Steps: Go to Instructions: As needed, follow up with nephrology at [facility] Next Steps: Follow up Instructions: Resume your hemodialysis Tuesday, Tuesday, Tuesday schedule. Discharge Disposition: Home. Time spent on Discharge: > 30 minutes Signed: Electronically signed by Mundo Díaz MD - 06/28/2025 - 8:20 AM EDT [facility] documented in this encounter Discharge Instructions * Attachments The following attachments cannot be sent through Care Everywhere. * Blood Transfusion Adult (Guyanese) documented in this encounter Medications at Time of Discharge albuterol 90 mcg/actuation inhaler Inhale 2 puffs by mouth every 6 (six) hours as needed for wheezing. amLODIPine (NORVASC) 10 MG tablet Take 1 tablet (10 mg total) by mouth daily. aspirin 81 MG chewable tablet Take 1 tablet (81 mg total) by mouth daily for 30 days. 30 tablet 06/28/2025 5 atorvastatin (LIPITOR) 80 MG tablet Take 1 tablet (80 mg total) by mouth nightly. calcitRIOL (ROCALTROL) 0.25 MCG capsule Take 1 capsule (0.25 mcg total) by mouth 3 (three) times a week TUE/TUE/TUE Administered at dialysis as directed . carvediloL (COREG) 12.5 MG tablet Take 1 tablet (12.5 mg total) by mouth 2 (two) times daily. diphenoxylate-atr opine (LOMOTIL) 2.5-0.025 mg per tablet Take 1 tablet by mouth every 6 (six) hours as needed for diarrhea. Max Daily Amount: 4 tablets doxazosin (CARDURA) 2 MG tablet Take 1 tablet (2 mg total) by mouth nightly. epoetin beta, methoxy peg (Mircera) 200 mcg/0.3 mL syrg Inject 200 mcg as directed every 14 (fourteen) days Administered at dialysis as directed . escitalopram (LEXAPRO) 10 MG tablet Take 1 tablet (10 mg total) by mouth daily. ezetimibe (ZETIA) 10 mg tablet Take 1 tablet (10 mg total) by mouth nightly. hydrALAZINE (APRESOLINE) 25 MG tablet Take 3 tablets (75 mg total) by mouth 4 (four) times daily for 30 days Look-alike/Soun d-alike medication. 360 tablet 06/28/2025 5 ipratropium-albut Elaine (DUO-NEB) 0.5 mg-3 mg(2.5 mg base)/3 mL nebulizer solution Inhale 3 mLs by nebulization every 6 (six) hours as needed for wheezing for up to 30 days. 300 mL 06/28/2025 5 isosorbide mononitrate (IMDUR) 60 MG 24 hr tablet Take 2 tablets (120 mg total) by mouth daily. levothyroxine (SYNTHROID) 88 MCG tablet Take 1 tablet (88 mcg total) by mouth in the morning. nitroglycerin (NITROSTAT) 0.4 MG SL tablet Put 1 pill under tongue every 5min as needed for chest pain.No more than 3 doses in 15min.Call 911 if pain unrelieved 5min after 1st dose. 90 tablet 06/28/2025 oxyCODONE-acetami nophen (PERCOCET) 10-325 mg per tablet Take 1 tablet by mouth every 6 (six) hours as needed for pain. pantoprazole (PROTONIX) 20 MG tablet Take 1 tablet (20 mg total) by mouth daily. topiramate (TOPAMAX) 25 MG tablet Take 1 tablet (25 mg total) by mouth 2 (two) times daily. documented as of this encounter Progress Notes * Jasvir Vines LPN - 06/29/2025 3:52 PM EDT Patient discharged from facility with all personal belongings and medications that were delivered to the bedside. Discharge instructions, medications and appointments reviewed with patient and son and nephew at the bedside. All verbalized understanding and agreeable to current plan of care at this time. Offered to wheelchair patient to vehicle however family declined twice. Family took patient down in patient own wheelchair to family vehicle no complications at this time. O2 delivered to patient at discharge also. * WILBUR Brownlee - 06/29/2025 2:16 PM EDTSummary: Home DME - Oxygen Social Work Progress Note Sent referral for home oxygen to [facility] ([facility] Plan for delivery by 1700 on today. WILBUR Brownlee * Kyara Navarro RRT - 06/29/2025 1:46 PM EDTSummary: Home O2 Eval Home Oxygen Qualification Testing Pulse Oximeter on Room Air at Rest: 88 % If SpO2 is <=88% STOP, meets qualification. If SpO2 is >88%, continue with ambulating pulse oximeter if appropriate. Room Air Ambulating Pulse Oximeter Reading: % If SpO2 is >88% STOP, does not meet qualifications unless additional disease criteria is met. If SpO2 is <=88%, during ambulation continue testing. Apply oxygen and ambulate. Ambulating Oxygen Flow Rate: Liter/Minute. Ambulating Pulse Oximeter Reading: %. Additional Comments: Pt not able to ambulate 2L NC at rest- 98% RA at rest- 88% Placed pt on 1L NC. At rest- 95% * Blaine Moreno MD - 06/29/2025 9:26 AM EDT Subjective History of Present Illness: Mar Waldron is a 55 y.o. female with a history of arthritis, CHF,ESRD, COPD, hypertension, and hypothyroidism presented to [facility] in [place], [place] for further evaluation and management of shortness of breath. Patient states she missed dialysis on Tuesday due to a family member passing away. Patient sought evaluation at [facility] where patient was found to be in acute CHF exacerbation, NSTEMI, and with moderate pleural effusion. Patient was subsequently transferred to [facility] for nephrology coverage and higher level of care. Patient was admitted for treatment of acute CHF exacerbation, NSTEMI, and pleural effusion, with consultation to cardiology and nephrology. Was seen and examined ,was dialyzed today and seen on HD Review of Systems Constitutional: Positive for fatigue. HENT: Negative. Eyes: Negative. Respiratory: Positive for shortness of breath. Gastrointestinal: Negative. Skin: Negative. Neurological: Positive for weakness. Objective Last Recorded Vitals Blood pressure (!) 160/88, pulse 58, temperature 97.5 ??F (36.4 ??C), temperature source Axillary, resp. rate 16, height 1.702 m (5' 7.01 ), weight 57.9 kg (127 lb 10.3 oz), SpO2 100%. Physical Exam Constitutional: Appearance: She is ill-appearing. HENT: Head: Normocephalic and atraumatic. Cardiovascular: Rate and Rhythm: Normal rate and regular rhythm. Pulmonary: Comments: Decreased BS bilaterally Abdominal: General: Abdomen is flat. Palpations: Abdomen is soft. Skin: General: Skin is warm and dry. Labs: Results for orders placed or performed during the hospital encounter of 06/23/25 (from the past 24 hours) Glucose, Nova Meter Status: Abnormal Collection Time: 06/28/25 11:20 AM Result Value Ref Range POC-GLUCOSE 116 (H) 70 - 110 mg/dL Bellows Tester [id number] Glucose, Nova Meter Status: None Collection Time: 06/28/25 6:50 PM Result Value Ref Range POC-GLUCOSE 83 70 - 110 mg/dL Bellows Tester [id number] Glucose, Nova Meter Status: None Collection Time: 06/28/25 7:58 PM Result Value Ref Range POC-GLUCOSE 107 70 - 110 mg/dL Bellows Tester [id number] Glucose, Nova Meter Status: Abnormal Collection Time: 06/29/25 6:06 AM Result Value Ref Range POC-GLUCOSE 181 (H) 70 - 110 mg/dL Bellows Tester [id number] ECHO COMPLETE (DOPPLER / COLOR) W OR WO CONTRAST TRANSTHORACIC ECHOCARDIOGRAPHY REPORT Demographics Patient Name: VIET VORA : 1970 Age: 55 year(s) Corporate ID Number: [id number] Gender Female Social Work Associate: Familia Garcia, Height: 67 inches [facility] Referring Physician: ADEBAYO TORRES Weight: 132 pounds Interpreting MINDY MCKEON MD BMI: 20.67 kg/m^2 Physician: Date of Service: 06/24/2025 Blood Pressure: 154/92 mmHg Room Number: 566 Type of Study: TTE procedure: ECHO COMPLETE (DOPPLER / COLOR) W OR WO CONTRAST. [facility] History/Tech Notes: Indication: shortness of breath R06.02, CHF Impression: ######################################## Definity ultrasound enhancing agent administered for endocardial border definition. Normal sized left ventricle. Mild left ventricular hypertrophy. Visually estimated ejection fraction 20% +/- 5%. Severe left ventricular systolic dysfunction with abnormal systolic strain pattern. Restrictive filling pattern consistent with severely increased LV filling pressure (Grade III Diastolic dysfunction). Moderate (2+) mitral regurgitation. PISA ERO: 0.3 cm2. Moderate (2+) tricuspid regurgitation. Severe pulmonary hypertension. RVSP 90 mmHg. Moderate pulmonic regurgitation (2+). Severely abnormal left atrial volume index 58 ml/m^2. Severely dilated right ventricle. Abnormal TAPSE; abnormal right ventricular function. Elevated central venous pressure >15mmHg. ######################################## Measurements Summary: LVEDd: 4.92 cm LVESd: 4.13 cm IVSEd: 1.2 cm AO Root:2.9 cm LVPWd: 1.12 cm Contractility Score Global Left Ventricular Hypokinesis was noted. LV regional wall motion: (0-Not visualized 1-Normal 2-Hypokinesis 3-Akinesis 4-Dyskinesis 5-Aneurysm) Left Ventricle Peak E-wave: 1.1 Peak A-wave: 0.43 m/s E/A ratio: 2.58 m/s Volume [id number] LV length: 8.52 cm ml Volume [id number] ml LVOT diameter: 1.7 cm Normal sized left ventricle. Mild left ventricular hypertrophy. Visually estimated ejection fraction 20% +/- 5%. Severe left ventricular systolic dysfunction with abnormal systolic strain pattern. Restrictive filling pattern consistent with severely increased LV filling pressure (Grade III Diastolic dysfunction). No left ventricular masses or thrombi. Right Ventricle Diastolic dimension: 4.96 RV systolic pressure: 90.15 mmHg cm Severely dilated right ventricle. Abnormal TAPSE; abnormal right ventricular function. Left Atrium LA dimension: 4.6 cm LA volume:98.51 ml LA/Aorta: 1.59 Severely abnormal left atrial volume index 58 ml/m^2. Intact atrial septum. No atrial mass or thrombus. Right Atrium Normal sized right atrium. Intact atrial septum. No atrial mass or thrombus. Mitral Valve Deceleration time: Area PHT: 3.32 cm^2 Mean velocity: 121.63 msec P1/2t: 66.19 msec 0.79 m/s MR velocity: 5.13 Mean gradient: m/s 2.88 mmHg Area (continuity): Peak gradient: 1.35 cm^2 8.04 mmHg MR VTI: 207.26 cm Thickened mitral valve leaflets. Mitral valve annulus calcification. Moderate (2+) mitral regurgitation. PISA ERO: 0.3 cm2. No mitral stenosis. No masses or vegetations seen. Aortic Valve AI P1/2t: 406.25 msec Peak velocity: 1.17 m/s LVOT VTI: 20.6 cm Peak gradient: 5.44 mmHg Deceleration time: 1400.88 msec Three cusped aortic valve. Thickened free edges of the aortic valve leaflets. Nodular calcification of LCC noted. Slice artifact of LCC calcification noted in PLAX view. Mild aortic regurgitation. No aortic stenosis. No masses or vegetations seen. Tricuspid Valve TR velocity: 4.33 m/s TR gradient: 75.17610 mmHg Estimated RAP: 15 mmHg RVSP: 90.15 mmHg Structurally normal tricuspid valve. Moderate (2+) tricuspid regurgitation. Severe pulmonary hypertension. RVSP 90 mmHg. No tricuspid stenosis. No masses or vegetations seen. Pulmonic Valve Acceleration time: 110.37 msec PASP: 90.15 mmHg Structurally normal pulmonic valve. Moderate pulmonic regurgitation (2+). No pulmonic stenosis. No masses or vegetations seen. Great Vessels Aorta Aortic Root: 2.9 cm LVOT Diameter: 1.7 cm Visualized thoracic aorta is normal. Normal aortic root. No evidence of dissection. Dilated IVC with no inspiratory collapse. Elevated central venous pressure >15mmHg. Pericardium / Pleura No pericardial effusion. Other Definity ultrasound enhancing agent administered for endocardial border definition. XR chest 2 views Narrative: TWO-VIEW CHEST 06/24/2025 2:10 PM HISTORY: Pleural effusion. Postthoracentesis. COMPARISON: June 23, 2025 FINDINGS: The cardiac silhouette is mildly enlarged. The aortic contours are normal. The mediastinal and hilar structures are unremarkable. There is pulmonary vascular congestion with a moderate right pleural effusion. There is right lower lobe consolidation. There is no pneumothorax. Status post median sternotomy. Impression: No pneumothorax post thoracentesis. Pulmonary vascular congestion with right lower lobe consolidation and moderate right pleural effusion. Images reviewed, interpreted, and dictated by Dr. Nas Rebolledo. Transcribed by Kalyan Wisdom PA-C US THORACENTESIS LT Narrative: ULTRASOUND-GUIDED THORACENTESIS WITH TUBE INSERTION HISTORY: Left pleural effusion. ATTENDING RADIOLOGIST: Dr. Rebolledo. PHYSICIAN MEDICAL LEGAL INVESTIGATOR: Kalyan Wisdom PA-C. TECHNIQUE: Informed consent was obtained from the patient. The indications and complications were discussed prior to beginning the procedure. This included, but was not limited to, pain, bleeding, infection, and pneumothorax requiring chest tube placement. The left back was then prepped and draped in sterile fashion. 1% lidocaine was used for local anesthesia. Utilizing sonographic guidance, a standard thoracentesis needle and sheath were inserted into the pleural space. The needle was removed and the catheter was left in the pleural space. Approximately 300 mL of clear yellow pleural fluid was successfully removed without complication. The tube was subsequently removed from the pleural space. The patient tolerated the procedure well. Sample of the fluid was sent to lab for preordered studies. Impression: Technically successful sonographic-guided left thoracentesis with tube insertion as above. Images reviewed, interpreted, and dictated by Dr. Nas Rebolledo. Transcribed by Kalyan Wisdom PA-C Assessment 1. Volume overload/moderate to large pleural effusions 2. End-stage renal disease on dialysis Tuesday 3. Pancytopenia/underlying liver cirrhosis 4. Acute exacerbation of CHF due to diastolic dysfunction 5. COPD 6. Severe protein energy malnourishment 7. History of CAD prior stenting 8.NSTEMI. Plan -Evaluate on daily basis to volume status, otherwise we will resume Tuesday schedul -Patient has pancytopenia likely underlying liver cirrhosis/hematology malignancy, extra managementas per primary -Fluid restriction 1.5 L 24-hour with 2 g of salt restriction 24-hour with dietitian consult -Avoid nephrotoxins -Strict intake and output -Bladder scan as needed -Keep MAP above 65 and hemoglobin above 7 -Renally dose medications and antibiotics -Monitor kidney function electrolytes on daily basis -Would recommend palliative consultation/hospice given the several comorbidities of this patient and poor functional status and poor quality of life with very high mortality given the above comorbidities -Thanks for consultation [facility] 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 * Nichole Pop RN - 06/28/2025 5:23 PM EDT 06/28/25 170 Vitals Temp 97.8 ??F (36.6 ??C) Temp src Axillary Pulse 56 Resp 12 BP (!) 191/77 MAP (mmHg) 113 SpO2 100 % O2 Flow Rate (L/min) 2 L/min O2 Device Nasal cannula Pain Assessment Pain Assessment Scale 0-10 Pain Score Zero Hemodialysis Access Arteriovenous fistula Left Forearm Placement Date/Time: 04/15/24426 Placed by External Staff?: Yes Access Type: Arteriovenous fistula Orientation: Left Access Location: Forearm Site Assessment Clean;Dry;Intact AV Graft/ AV Fistula Present;Thrill;Bruit Status Deaccessed Type of Dressing Gauze Dressing Status Clean;Dry;Intact During Hemodialysis Assessment Hemodialysis Status Completed Ultrafiltration Status Completed Prime Volume 250 Blood Flow Rate (mL/min) 400 mL/min Ultrafiltration Rate (mL/hr) 714 mL/hr UF Removed (mL) 2500 ml Dialysate Flow Rate (mL/min) 600 ml/min UF State On Arteriovenous Lines Secure Yes Post-Hemodialysis Assessment Total Blood Volume Processed 84 mL Duration of Treatment (minutes) 210 min Hemodialysis UF Net Intake (mL) 500 mL Hemodialysis UF Net Output (mL) 2000 mL Hemodialysis UF Gross (mL) 2500 mL Post-Treatment Weight 56.2 kg (123 lb 14.4 oz) Treatment Weight Change (kg) -1.6 kg Patient tolerated treatment well. Patient's BP has trended up at end of treatment. Patient is stillvery drowsy and barely opening her eyes. Uf of 2L achieved. Report given to Paloma Sawyer RN. * Blaine Moreno MD - 06/28/2025 5:16 PM EDT Subjective History of Present Illness: Mar Waldron is a 55 y.o. female with a history of arthritis, CHF,ESRD, COPD, hypertension, and hypothyroidism presented to [facility] in [place], [place] for further evaluation and management of shortness of breath. Patient states she missed dialysis on Tuesday due to a family member passing away. Patient sought evaluation at [facility] where patient was found to be in acute CHF exacerbation, NSTEMI, and with moderate pleural effusion. Patient was subsequently transferred to [facility] for nephrology coverage and higher level of care. Patient was admitted for treatment of acute CHF exacerbation, NSTEMI, and pleural effusion, with consultation to cardiology and nephrology. Was seen and examined ,was dialyzed today and seen on HD Review of Systems Constitutional: Positive for fatigue. HENT: Negative. Eyes: Negative. Respiratory: Positive for shortness of breath. Gastrointestinal: Negative. Skin: Negative. Neurological: Positive for weakness. Objective Last Recorded Vitals Blood pressure (!) 166/65, pulse 57, temperature 97.7 ??F (36.5 ??C), temperature source Axillary, resp. rate 12, height 1.702 m (5' 7.01 ), weight 57.9 kg (127 lb 10.3 oz), SpO2 100%. Physical Exam Constitutional: Appearance: She is ill-appearing. HENT: Head: Normocephalic and atraumatic. Cardiovascular: Rate and Rhythm: Normal rate and regular rhythm. Pulmonary: Comments: Decreased BS bilaterally Abdominal: General: Abdomen is flat. Palpations: Abdomen is soft. Skin: General: Skin is warm and dry. Labs: Results for orders placed or performed during the hospital encounter of 06/23/25 (from the past 24 hours) Hemoglobin and hematocrit Status: Abnormal Collection Time: 06/27/25 7:53 PM Result Value Ref Range Hemoglobin 8.7 (L) 11.2 - 15.7 GM/DL Hematocrit 28.7 (L) 34.1 - 44.9 % Glucose, Nova Meter Status: None Collection Time: 06/27/25 7:59 PM Result Value Ref Range POC-GLUCOSE 105 70 - 110 mg/dL Bellows Tester [id number] CBC with automated diff Status: Abnormal Collection Time: 06/28/25 2:34 AM Result Value Ref Range WBC 4.9 4.0 - 10.0 K/??L RBC 3.07 (L) 3.93 - 5.22 M/??L Hemoglobin 8.7 (L) 11.2 - 15.7 GM/DL Hematocrit 29.3 (L) 34.1 - 44.9 % MCV 95 79 - 95 fL MCH 28.3 25.6 - 32.2 pg MCHC 29.7 (L) 32.2 - 35.5 GM/DL RDW 18.7 (H) 11.7 - 14.4 % Platelets 51 (L) 140 - 375 K/CU MM MPV 12.6 (H) 9.4 - 12.3 fL % Neutros 66 34 - 71 % % Lymphs 21 19 - 52 % % Monos 8 5 - 13 % % Eos 5 1 - 6 % % Baso 1 0 - 1 % NRBC Absolute <0.01 0 - 0.012 K/ul # Neutros 3.20 1.56 - 6.13 K/??L # Lymphs 1.00 (L) 1.18 - 3.74 K/??L # Monos 0.37 0.24 - 0.86 K/??L # Eos 0.22 0.04 - 0.36 K/??L # Baso 0.04 0.01 - 0.08 K/??L Immature Granulocytes-Relative 0.80 (H) 0.01 - 0.43 % # IG 0.04 (H) 0.00 - 0.03 K/uL Comprehensive metabolic panel Status: Abnormal Collection Time: 06/28/25 2:34 AM Result Value Ref Range Sodium 140 136 - 145 meq/L Potassium 4.5 3.4 - 5.1 meq/L Chloride 101 98 - 112 meq/L CO2 25 22 - 29 meq/L Calcium 7.9 (L) 8.4 - 10.2 mg/dL Glucose 130 (H) 74 - 100 mg/dL BUN 41.0 (H) 9.8 - 20.1 mg/dL Creatinine 2.43 (H) 0.57 - 1.11 mg/dL BUN/Creatinine 17 8 - 20 eGFR (mL/min/1.73m2) 23 (L) >=60 mL/min/1.73m2 Albumin 2.3 (L) 3.5 - 5.0 g/dL Alkaline Phosphatase 182 (H) 40 - 150 U/L ALT 7 <=34 U/L AST 15 11 - 34 U/L Total Bilirubin 0.7 0.2 - 1.2 mg/dL Protein, Total 5.9 (L) 6.4 - 8.3 g/dL Globulin 3.6 2.5 - 4.1 g/dL Anion Gap 19 (H) 4 - 12 A/G Ratio 0.6 (L) 0.7 - 1.9 Osmolality Calc 291.3 mOsm/kg Magnesium Status: Normal Collection Time: 06/28/25 2:34 AM Result Value Ref Range Magnesium 1.7 1.6 - 2.6 mg/dL Glucose, Nova Meter Status: Abnormal Collection Time: 06/28/25 5:34 AM Result Value Ref Range POC-GLUCOSE 111 (H) 70 - 110 mg/dL Bellows Tester [id number] Glucose, Nova Meter Status: Abnormal Collection Time: 06/28/25 11:20 AM Result Value Ref Range POC-GLUCOSE 116 (H) 70 - 110 mg/dL Bellows Tester [id number] ECHO COMPLETE (DOPPLER / COLOR) W OR WO CONTRAST TRANSTHORACIC ECHOCARDIOGRAPHY REPORT Demographics Patient Name: VIET VORA : 1970 Age: 55 year(s) Corporate ID Number: [id number] Gender Female Social Work Associate: Familia Garcia, Height: 67 inches [facility] Referring Physician: ADEBAYO TORRES Weight: 132 pounds Interpreting MINDY MCKEON MD BMI: 20.67 kg/m^2 Physician: Date of Service: 06/24/2025 Blood Pressure: 154/92 mmHg Room Number: 566 Type of Study: TTE procedure: ECHO COMPLETE (DOPPLER / COLOR) W OR WO CONTRAST. Patient Status: [facility] Study Location: PortableTechnical Quality: Adequate visualization History/Tech Notes: Indication: shortness of breath R06.02, CHF Impression: ######################################## Definity ultrasound enhancing agent administered for endocardial border definition. Normal sized left ventricle. Mild left ventricular hypertrophy. Visually estimated ejection fraction 20% +/- 5%. Severe left ventricular systolic dysfunction with abnormal systolic strain pattern. Restrictive filling pattern consistent with severely increased LV filling pressure (Grade III Diastolic dysfunction). Moderate (2+) mitral regurgitation. PISA ERO: 0.3 cm2. Moderate (2+) tricuspid regurgitation. Severe pulmonary hypertension. RVSP 90 mmHg. Moderate pulmonic regurgitation (2+). Severely abnormal left atrial volume index 58 ml/m^2. Severely dilated right ventricle. Abnormal TAPSE; abnormal right ventricular function. Elevated central venous pressure >15mmHg. ######################################## Measurements Summary: LVEDd: 4.92 cm LVESd: 4.13 cm IVSEd: 1.2 cm AO Root:2.9 cm LVPWd: 1.12 cm Contractility Score Global Left Ventricular Hypokinesis was noted. LV regional wall motion: (0-Not visualized 1-Normal 2-Hypokinesis 3-Akinesis 4-Dyskinesis 5-Aneurysm) Left Ventricle Peak E-wave: 1.1 Peak A-wave: 0.43 m/s E/A ratio: 2.58 m/s Volume [id number] LV length: 8.52 cm ml Volume [id number] ml LVOT diameter: 1.7 cm Normal sized left ventricle. Mild left ventricular hypertrophy. Visually estimated ejection fraction 20% +/- 5%. Severe left ventricular systolic dysfunction with abnormal systolic strain pattern. Restrictive filling pattern consistent with severely increased LV filling pressure (Grade III Diastolic dysfunction). No left ventricular masses or thrombi. Right Ventricle Diastolic dimension: 4.96 RV systolic pressure: 90.15 mmHg cm Severely dilated right ventricle. Abnormal TAPSE; abnormal right ventricular function. Left Atrium LA dimension: 4.6 cm LA volume:98.51 ml LA/Aorta: 1.59 Severely abnormal left atrial volume index 58 ml/m^2. Intact atrial septum. No atrial mass or thrombus. Right Atrium Normal sized right atrium. Intact atrial septum. No atrial mass or thrombus. Mitral Valve Deceleration time: Area PHT: 3.32 cm^2 Mean velocity: 121.63 msec P1/2t: 66.19 msec 0.79 m/s MR velocity: 5.13 Mean gradient: m/s 2.88 mmHg Area (continuity): Peak gradient: 1.35 cm^2 8.04 mmHg MR VTI: 207.26 cm Thickened mitral valve leaflets. Mitral valve annulus calcification. Moderate (2+) mitral regurgitation. PISA ERO: 0.3 cm2. No mitral stenosis. No masses or vegetations seen. Aortic Valve AI P1/2t: 406.25 msec Peak velocity: 1.17 m/s LVOT VTI: 20.6 cm Peak gradient: 5.44 mmHg Deceleration time: 1400.88 msec Three cusped aortic valve. Thickened free edges of the aortic valve leaflets. Nodular calcification of LCC noted. Slice artifact of LCC calcification noted in PLAX view. Mild aortic regurgitation. No aortic stenosis. No masses or vegetations seen. Tricuspid Valve TR velocity: 4.33 m/s TR gradient: 75.42006 mmHg Estimated RAP: 15 mmHg RVSP: 90.15 mmHg Structurally normal tricuspid valve. Moderate (2+) tricuspid regurgitation. Severe pulmonary hypertension. RVSP 90 mmHg. No tricuspid stenosis. No masses or vegetations seen. Pulmonic Valve Acceleration time: 110.37 msec PASP: 90.15 mmHg Structurally normal pulmonic valve. Moderate pulmonic regurgitation (2+). No pulmonic stenosis. No masses or vegetations seen. Great Vessels Aorta Aortic Root: 2.9 cm LVOT Diameter: 1.7 cm Visualized thoracic aorta is normal. Normal aortic root. No evidence of dissection. Dilated IVC with no inspiratory collapse. Elevated central venous pressure >15mmHg. Pericardium / Pleura No pericardial effusion. Other Definity ultrasound enhancing agent administered for endocardial border definition. XR chest 2 views Narrative: TWO-VIEW CHEST 06/24/2025 2:10 PM HISTORY: Pleural effusion. Postthoracentesis. COMPARISON: June 23, 2025 FINDINGS: The cardiac silhouette is mildly enlarged. The aortic contours are normal. The mediastinal and hilar structures are unremarkable. There is pulmonary vascular congestion with a moderate right pleural effusion. There is right lower lobe consolidation. There is no pneumothorax. Status post median sternotomy. Impression: No pneumothorax post thoracentesis. Pulmonary vascular congestion with right lower lobe consolidation and moderate right pleural effusion. Images reviewed, interpreted, and dictated by Dr. Nas Rebolledo. Transcribed by Kalyan Wisdom PA-C US THORACENTESIS LT Narrative: ULTRASOUND-GUIDED THORACENTESIS WITH TUBE INSERTION HISTORY: Left pleural effusion. ATTENDING RADIOLOGIST: Dr. Rebolledo. PHYSICIAN MEDICAL LEGAL INVESTIGATOR: Kalyan Wisdom PA-C. TECHNIQUE: Informed consent was obtained from the patient. The indications and complications were discussed prior to beginning the procedure. This included, but was not limited to, pain, bleeding, infection, and pneumothorax requiring chest tube placement. The left back was then prepped and draped in sterile fashion. 1% lidocaine was used for local anesthesia. Utilizing sonographic guidance, a standard thoracentesis needle and sheath were inserted into the pleural space. The needle was removed and the catheter was left in the pleural space. Approximately 300 mL of clear yellow pleural fluid was successfully removed without complication. The tube was subsequently removed from the pleural space. The patient tolerated the procedure well. Sample of the fluid was sent to lab for preordered studies. Impression: Technically successful sonographic-guided left thoracentesis with tube insertion as above. Images reviewed, interpreted, and dictated by Dr. Nas Rebolledo. Transcribed by Kalyan Wisdom PA-C Assessment 1. Volume overload/moderate to large pleural effusions 2. End-stage renal disease on dialysis Tuesday 3. Pancytopenia/underlying liver cirrhosis 4. Acute exacerbation of CHF due to diastolic dysfunction 5. COPD 6. Severe protein energy malnourishment 7. History of CAD prior stenting 8.NSTEMI. Plan -Evaluate on daily basis to volume status, otherwise we will resume Tuesday schedule,Was seen on HD -Patient has pancytopenia likely underlying liver cirrhosis/hematology malignancy, extra managementas per primary -Fluid restriction 1.5 L 24-hour with 2 g of salt restriction 24-hour with dietitian consult -Avoid nephrotoxins -Strict intake and output -Bladder scan as needed -Keep MAP above 65 and hemoglobin above 7 -Renally dose medications and antibiotics -Monitor kidney function electrolytes on daily basis -Would recommend palliative consultation/hospice given the several comorbidities of this patient and poor functional status and poor quality of life with very high mortality given the above comorbidities -Thanks for consultation [facility] [address] [place], [place], [address] Phone #[phone] Fax #[phone] High complex case * Nichole Pop RN - 06/28/2025 3:08 PM EDT 06/28/25 1336 Vitals Temp 97.7 ??F (36.5 ??C) Temp src Axillary Pulse 57 Resp 12 BP (!) 166/65 MAP (mmHg) 98 SpO2 100 % O2 Flow Rate (L/min) 2 L/min O2 Device Nasal cannula Pain Assessment Pain Assessment Scale 0-10 Pain Score Zero Hemodialysis Access Arteriovenous fistula Left Forearm Placement Date/Time: 04/15/24 0427 Placed by External Staff?: Yes Access Type: Arteriovenous fistula Orientation: Left Access Location: Forearm Site Assessment Clean;Dry;Intact AV Graft/ AV Fistula Present;Thrill;Bruit Status Accessed Type of Dressing Gauze Dressing Status Clean;Dry;Intact Line Care Connections checked and tightened Pre-Hemodialysis Assessment Pre-Treatment Weight 57.8 kg (127 lb 6.8 oz) HBs AG Date Last Drawn 06/24/25 HBs AG result Negative Machine 112014 Machine Conductivity 13.7 QC pH 7.2 Machine Temperature 37.1 Test Completed Yes Chlorine / Chloramine 1st Check Time 1016 Chlorine / Chloramine Result <0.1 Reverse Osmosis [id number] Alarm Test Passed Treatment Type UF and Hemodialysis Dialyzer F-180 Dialysate Na (mEq/L) Other (138) Dialysate K (mEq/L) 3 mEq/L Dialysate Ca (mEq/L) 2.5 mEq/L Dialysate HCO3 (mEq/L) 35 mEq/L During Hemodialysis Assessment Hemodialysis Status Initiated Ultrafiltration Status Initiated Prime Volume 250 Blood Flow Rate (mL/min) 400 mL/min Ultrafiltration Rate (mL/hr) 714 mL/hr Venous Pressure (mmHg) 152 Transmembrane Pressure (mmHg) 11 mmHg Arterial Pressure (mmHg) -159 UF Goal 2500 ml Dialysate Flow Rate (mL/min) 600 ml/min UF State On Arteriovenous Lines Secure Yes Patient arrived drowsy, barely able to open eyes, hypertensive, bradycardic, ready for treatment. Report received from Naomi Sawyer RN. * Octavia Mcnally RN - 06/28/2025 2:46 PM EDT Care Coordination Final Discharge Plan Final Discharge Plan PCP referral provided? (P) No Community Referral Discussed with patient: (P) Yes Patient Appealing Discharge: (P) No Does the patient have ability to fill and recive their discharge medications? (P) Yes Patient returning to prior living situation: (P) Yes Support Systems: (P) Children, Family members Discharge Disposition: (P) Home Services Arranged for Discharge: Contact information for follow-up Osmani Becker MD Specialty: General Internal Medicine Relationship: PCP - General [address] [place] [address] [address] [facility] [address] Next Steps: Go on 07/04/2025 Instructions: appt time is 11am [facility] Next Steps: Go to Instructions: As needed, follow up with nephrology at [facility] Next Steps: Follow up Instructions: Resume your hemodialysis Tuesday, Tuesday, Tuesday schedule. Transporation Provider: (P) Wade- son Transporation Contact Name: Transportation Provider Phone: Date of supervisor sawing and assembly: (P) 06/28/25 Time of supervisor sawing and assembly: Discussed D/c planning with pt's son Wade. Declined palliative at home services & HH. Will resume HD-[facility] notified of pt's d/c and was faxed clinical information. Octavia Mcnally RN * Ferny Pereira MD - 06/28/2025 1:04 PM EDT Subjective No acute events overnight. Patient resting comfortably this morning, easily awoken. She reports that she is going to be discharged today and states that she has no concerns right now. Review of Systems All other systems reviewed and are negative. Objective Last Recorded Vitals Blood pressure (!) 192/80, pulse 59, temperature 97.7 ??F (36.5 ??C), resp. rate 17, height 1.702 m(5' 7.01 ), weight 57.9 kg (127 lb 10.3 oz), SpO2 98%. Physical Exam Constitutional: General: She is not in acute distress. Appearance: She is ill-appearing. HENT: Head: Normocephalic and atraumatic. Right Ear: External ear normal. Left Ear: External ear normal. Nose: Nose normal. Mouth/Throat: Mouth: Mucous membranes are dry. Pharynx: Oropharynx is clear. Eyes: Conjunctiva/sclera: Conjunctivae normal. Pulmonary: Effort: Pulmonary effort is normal. No respiratory distress. Skin: General: Skin is warm and dry. Neurological: Mental Status: Mental status is at baseline. Psychiatric: Mood and Affect: Mood normal. Behavior: Behavior normal. Thought Content: Thought content normal. Judgment: Judgment normal. Labs/Imaging: Labs obtained 06/28 personally reviewed and notable for WBC count of 4.9, Hgb of 8.7, thrombocytopenia with platelet count of 51, Cr of 2.43, BUN of 41, no significant electrolyte abnormalities. No new imaging for review. Assessment Principal Problem: CHF exacerbation (HCC) Active Problems: Fluid overload ESRD on iHD Acute exacerbation of Chronic CHF COPD HTN Acute hypoxic respiratory failure secondary to volume overload Renal Mass concerning for malignancy Plan Complex Medical Decision Making - not discussed in detail today. Patient stated that she was too sleepy to talk about it right now,but did report that she does not have any acute concerns to discuss at this time. CODE Status at the time of my visit: DNR/No Vent - not discussed today, 06/28 No changes to code status today, 06/28. Palliative care will continue to follow and assist with complex medical decision making. * Chaplain Adrian - 06/28/2025 12:00 PM EDT Spiritual Care Progress Note Comments: Attempted to visit patient, she was asleep and did not wake to voice. Will attempt to visit again. Chaplain Adrian 06/28/2025 12:49 PM * Mundo Díaz MD - 06/28/2025 11:58 AM EDT Subjective Mar Waldron is a 55 y.o. female on hospital day 6. Sleepy, no SOA, no melena Review of Systems As above Objective Vitals: Temp: [97.5 ??F (36.4 ??C)-98.6 ??F (37 ??C)] 98.6 ??F (37 ??C) Pulse: [56-64] 58 Resp: [12-16] 16 BP: (149-191)/(59-88) 173/80 Intake/Output: Intake/Output Summary (Last 24 hours) at 06/29/2025 1158 Last data filed at 06/28/2025 1707 Gross per 24 hour Intake 500 ml Output 2000 ml Net -1500 ml Physical exam: General: Alert and interactive, in mild distress. Eyes: Conjunctiva appropriate, Sclera white HENT: Normocephalic, adequate hearing, moist oral mucosa Lungs: Increased work of breathing, diminished breath sounds bilateral bases Heart: Tachycardic Abdomen: Soft, non-tender, non-distended, active bowel sounds Neurologic: Awake, alert and oriented X 3, sensory intact, no focal deficits Psychiatric: Cooperative, appropriate mood and affect Labs: Recent Labs Lab(s) Units 06/29/25 1030 06/29/25 0606 06/28/25195706/28/25 1850 06/28/25 0534 06/28/25 0234 06/27/25195806/27/25195206/27/25 0514 06/27/25 0306 06/26/25 0509 06/26/25 0118 06/25/25 1046 06/25/25 1026 06/25/25 0459 06/24/25 2122 06/24/25 0457 06/23/25 2327 WBC K/ L 5.2 -- -- -- -- 4.9 -- -- -- 3.8* < > 4.0 -- -- < > 4.8 < > -- HGB GM/DL 8.8* -- -- -- -- 8.7* -- 8.7* -- 6.8* < > 7.1* < > -- < > 7.1* < > -- HCT % 29.2* -- -- -- -- 29.3* -- 28.7* -- 24.1* < > 25.3* < > -- < > 24.5* < &g t; -- PLT K/CU MM 51* -- -- -- -- 51* -- -- -- 50* < > 62* -- -- < > 67* < > -- PROTIME seconds -- -- -- -- -- -- -- -- -- -- -- -- -- 12.6* -- 12.4* -- 11.4 INR -- -- -- -- -- -- -- -- -- -- -- -- -- 1.15* -- 1.13* -- 1.03 MG mg/dL -- -- -- -- -- 1.7 -- -- -- 1.6 -- 1.7 -- -- -- -- -- -- NA meq/L -- -- -- -- -- 140 -- -- -- 137 -- 139 -- -- -- -- < > -- K meq/L -- -- -- -- -- 4.5 -- -- -- 3.8 -- 4.2 -- -- -- -- < > -- CL meq/L -- -- -- -- -- 101 -- -- -- 101 -- 101 -- -- -- -- < > -- CO2 meq/L -- -- -- -- -- 25 -- -- -- 25 -- 24 -- -- -- -- < > -- BUN mg/dL -- -- -- -- -- 41.0* -- -- -- 27.3* -- 42.1* -- -- -- -- < > -- CREATININE mg/dL -- -- -- -- -- 2.43* -- -- -- 1.85* -- 2.76* -- -- -- -- < > -- EGFR mL/min/1.73m2 -- -- -- -- -- 23* -- -- -- 32* -- 20* -- -- -- -- < > -- GLUCOSE mg/dL -- 181* 107 83 < > 130* < > -- < > 198* < > 166* < > --< > -- < > -- CALCIUM mg/dL -- -- -- -- -- 7.9* -- -- -- 7.8* -- 7.8* -- -- -- -- < > -- PHOS mg/dL -- -- -- -- -- -- -- -- -- -- -- 5.1* -- -- -- -- -- -- ALKPHOS U/L -- -- -- -- -- 182* -- -- -- 194* -- 199* -- -- -- -- < > -- BILITOT mg/dL -- -- -- -- -- 0.7 -- -- -- 0.6 -- 0.6 -- -- -- -- < > -- PROT g/dL -- -- -- -- -- 5.9* -- -- -- 5.9* -- 5.8* -- -- -- -- < > -- ALT U/L -- -- -- -- -- 7 -- -- -- <7 -- 7 -- -- -- -- < > -- AST U/L -- -- -- -- -- 15 -- -- -- 20 -- 28 -- -- -- -- < > -- < > = values in this interval not displayed. Results for orders placed or performed during the hospital encounter of 06/23/25 (from the past 24 hours) Glucose, Nova Meter Status: None Collection Time: 06/28/25 6:50 PM Result Value Ref Range POC-GLUCOSE 83 70 - 110 mg/dL Bellow[employer] Tester [id number] Glucose, Nova Meter Status: None Collection Time: 06/28/25 7:58 PM Result Value Ref Range POC-GLUCOSE 107 70 - 110 mg/dL [employer] Tester [id number] Glucose, Nova Meter Status: Abnormal Collection Time: 06/29/25 6:06 AM Result Value Ref Range POC-GLUCOSE 181 (H) 70 - 110 mg/dL [employer] Tester [id number] CBC with Automated Diff Status: Abnormal Collection Time: 06/29/25 10:30 AM Result Value Ref Range WBC 5.2 4.0 - 10.0 K/??L RBC 3.10 (L) 3.93 - 5.22 M/??L Hemoglobin 8.8 (L) 11.2 - 15.7 GM/DL Hematocrit 29.2 (L) 34.1 - 44.9 % MCV 94 79 - 95 fL MCH 28.4 25.6 - 32.2 pg MCHC 30.1 (L) 32.2 - 35.5 GM/DL RDW 18.5 (H) 11.7 - 14.4 % Platelets 51 (L) 140 - 375 K/CU MM MPV 11.1 9.4 - 12.3 fL % Neutros 72 (H) 34 - 71 % % Lymphs 16 (L) 19 - 52 % % Monos 7 5 - 13 % % Eos 4 1 - 6 % % Baso 1 0 - 1 % NRBC Absolute <0.01 0 - 0.012 K/ul # Neutros 3.78 1.56 - 6.13 K/??L # Lymphs 0.81 (L) 1.18 - 3.74 K/??L # Monos 0.37 0.24 - 0.86 K/??L # Eos 0.22 0.04 - 0.36 K/??L # Baso 0.04 0.01 - 0.08 K/??L Immature Granulocytes-Relative 0.40 0.01 - 0.43 % # IG <0.03 0.00 - 0.03 K/uL Radiology: XR chest 2 views Final Result No pneumothorax post thoracentesis. Pulmonary vascular congestion with right lower lobe consolidation and moderate right pleural effusion. Images reviewed, interpreted, and dictated by Dr. Nas Rebolledo. Transcribed by Kalyan Wisdom PA-C US THORACENTESIS LT Final Result Technically successful sonographic-guided left thoracentesis with tube insertion as above. Images reviewed, interpreted, and dictated by Dr. Nas Rebolledo. Transcribed by Kalyan Wisdom PA-C ECHO COMPLETE (DOPPLER / COLOR) W OR WO CONTRAST Final Result XR chest AP portable Final Result Impression: Probable acute pulmonary edema pattern Authenticated and Medications: Scheduled Meds: acetaZOLAMIDE 250 mg oral BID 250 mg at 06/29/25822 aspirin 81 mg oral Daily 81 mg at 06/29/25825 atorvastatin 40 mg oral Every Night 40 mg at 06/28/252029 budesonide 0.5 mg nebulization 2 times daily 0.5 mg at 06/28/252113 carvediloL 12.5 mg oral BID w/breakfast & dinner 12.5 mg at 06/29/25823 doxazosin 2 mg oral BID 2 mg at 06/29/25822 hydrALAZINE 75 mg oral 4x Daily 75 mg at 06/29/2523 insulin lispro 0-12 Units subcutaneous 4x Daily AC 4 Units at 06/27/25 0639 isosorbide mononitrate 120 mg oral Daily 120 mg at 06/29/25 0823 levothyroxine 88 mcg oral QAM (0600) 88 mcg at 06/29/25 0418 pantoprazole 40 mg oral Daily 40 mg at 06/29/25 08 Continuous Infusions: Current Facility-Administered Medications Medication Dose Route Frequency Provider Last Rate Last Admin acetaminophen (TYLENOL) tablet 1,000 mg 1,000 mg oral Q6H PRN Dajuan Banuelos MD acetaZOLAMIDE (DIAMOX) tablet 250 mg 250 mg oral BID Dajuan Banuelos MD 250 mg at 06/29/25822 aspirin EC tablet 81 mg 81 mg oral Daily Vlad Waters PA-C 81 mg at 06/29/25825 atorvastatin (LIPITOR) tablet 40 mg 40 mg oral Every Night Vlad Waters PA-C 40 mg at 06/28/252029 budesonide (PULMICORT) nebulizer suspension 0.5 mg 0.5 mg nebulization 2 times daily Vlad Waters PA-C 0.5 mg at 06/28/252113 carvediloL (COREG) tablet 12.5 mg 12.5 mg oral BID w/breakfast & dinner Vlad Waters PA-C 12.5mg at 06/29/25 0824 cloNIDine (CATAPRES) tablet 0.1 mg 0.1 mg oral Q8H PRN Vlad Waters PA-C 0.1 mg at 06/24/25 1217 dextrose 50% (D50W) injection 25 g 25 g intravenous Q15 Min PRN Vlad Waters PA-C diphenhydrAMINE (BENADRYL) capsule 25 mg 25 mg oral Every Night PRN Dajuan Banuelos MD doxazosin (CARDURA) tablet 2 mg 2 mg oral BID Dajuan Banuelos MD 2 mg at 06/29/25 0823 glucagon injection 1 mg 1 mg intraMUSCULAR Q15 Min PRN Vlad Waters PA-C glucose chew tab 16 g 16 g oral Q15 Min PRN Vlad Waters PA-C hydrALAZINE (APRESOLINE) tablet 75 mg 75 mg oral 4x Daily Dajuan Banuelos MD 75 mg at 06/29/25 0823 insulin lispro (HUMALOG, ADMELOG) injection 0-12 Units 0-12 Units subcutaneous 4x Daily AC Vlad Waters PA-C 4 Units at 06/27/25 0639 ipratropium-albuteroL (DUO-NEB) 0.5 mg-3 mg(2.5 mg base)/3 mL nebulizer solution 3 mL 3 mL nebulization Q6H PRN Vlad Waters PA-C isosorbide mononitrate (IMDUR) 24 hr tablet 120 mg 120 mg oral Daily Dajuan Banuelos MD 120 mg at 06/29/25 0823 levothyroxine (SYNTHROID) tablet 88 mcg 88 mcg oral QAM (0600) GARCIA Villagran 88 mcg at 06/29/25 0418 LORazepam (ATIVAN) tablet 0.5 mg 0.5 mg oral Q8H PRN Dajuan Banuelos MD 0.5 mg at 06/28/252038 magnesium sulfate IVPB 2 g in sterile water 50 mL (premix) 2 g intravenous Daily PRN Vlad Waters PA-C magnesium sulfate IVPB 2 g in sterile water 50 mL (premix) 2 g intravenous BID PRN Vlad Waters PA-C melatonin tablet 5 mg 5 mg oral Every Night PRN Vlad Waters PA-C 5 mg at 06/26/252032 morphine injection 2 mg 2 mg intravenous Q4H PRN Vlad Waters PA-C naloxone (NARCAN) injection 0.2 mg 0.2 mg intravenous Q2 Min PRN Dajuan Banuelos MD nitroglycerin (NITROSTAT) tablet 0.4 mg 0.4 mg sublingual Q5 Min PRN Vlad Waters PA-C ondansetron (ZOFRAN-ODT) disintegrating tablet 4 mg 4 mg oral Q8H PRN Vlad Waters PA-C Or ondansetron (ZOFRAN) injection 4 mg 4 mg intravenous Q8H PRN Vlad Waters PA-C oxyCODONE (ROXICODONE) immediate release tablet 10 mg 10 mg oral Q4H PRN Vlad Waters PA-C 10 mg at 06/28/252028 pantoprazole (PROTONIX) EC tablet 40 mg 40 mg oral Daily Vlad Waters PA-C 40 mg at 06/29/25822 sodium chloride 0.9% (NS) bolus 250 mL intravenous Daily PRN Blaine Moreno MD sodium chloride 0.9% (NS) bolus 250 mL intravenous Daily PRN Blaine Moreno MD sodium chloride 0.9% (NS) bolus 250 mL intravenous Daily PRN Blaine Moreno MD sodium chloride flush 10 mL 10 mL intravenous PRN Dajuan Banuelos MD PRN Meds: @MEDSPRN@ Assessment and Plan NSTEMI Severe anemia History of CAD prior stenting. Thrombocytopenia>>>chronic -Heparin infusion>>> Held due to low Plat - Packed RBCs to keep hemoglobin above 7.>>> 6.4> 7.2 >> 6.8> 8.7 today - Patient is currently on aspirin atorvastatin Coreg Imdur 120 - Cont Protonix twice daily. Not candidate for stents or LHC due to Severe anemia low Plat Acute diastolic heart failure exacerbation Complicated by ESRD EF 55% - Coreg, treat NSTEMI, ultrafiltration, treat anemia, - left thoracentesis done 06/24/2025 >>>100mL removed. - Oxygen low-salt diet - Continue Tuesday dialysis Diabetes sliding scale insulin Thrombocytopenia/anemia - Unexplained - ESRD. - patient refused EGD US RUQ ordered per GI can be followed as OP Pt is compensated except from low Plat & Low albumin COPD continue as needed inhalers. Hypothyroidism continue levothyroxine. Renal mass concerning for malignancy. Follow-up urology. Protein calorie malnutrition present on admission Boost twice daily PCP follow up May benefit from appetite stimulant Diet: Orders Placed This Encounter Procedures Heart Healthy Diet DVT ppx: SCD PUD ppx:PPI Code Status: DNR - Limited Additional Intervention MDM: Follow up palliative & Nephrology , Hgb stable tolerated HD, Discharge Planning: Home 06/29/2025 * Nichole Pop RN - 06/28/2025 11:47 AM EDTSummary: Dialysis Tried for the 4th time to get report on the patient. Was told to call back once again. Will continue to charge for the wait time. * Nichole Pop RN - 06/28/2025 11:10 AM EDTSummary: Dialysis Dialysis nurse has called unit x 2 for nurse who is not answering, and then 1 time talked to charge. She assured my the nurse would call me report shortly. This all happened in the last 30 minutes. Await time has been issued at this time. * Kylah Munguia RN - 06/27/2025 6:39 PM EDT Pt refused to be checked and/or changed and rachel-care. Pt stated she does not need cleaned up and it is not okay for us to look to be sure . * Blaine Moreno MD - 06/27/2025 5:16 PM EDT Subjective History of Present Illness: Mar Waldron is a 55 y.o. female with a history of arthritis, CHF,ESRD, COPD, hypertension, and hypothyroidism presented to [facility] in [place], [place] for further evaluation and management of shortness of breath. Patient states she missed dialysis on Tuesday due to a family member passing away. Patient sought evaluation at [facility] where patient was found to be in acute CHF exacerbation, NSTEMI, and with moderate pleural effusion. Patient was subsequently transferred to [facility] for nephrology coverage and higher level of care. Patient was admitted for treatment of acute CHF exacerbation, NSTEMI, and pleural effusion, with consultation to cardiology and nephrology. Was seen and examined ,was dialyzed yesterday Review of Systems Constitutional: Positive for fatigue. HENT: Negative. Eyes: Negative. Respiratory: Positive for shortness of breath. Gastrointestinal: Negative. Skin: Negative. Neurological: Positive for weakness. Objective Last Recorded Vitals Blood pressure (!) 166/65, pulse 57, temperature 97.7 ??F (36.5 ??C), temperature source Axillary, resp. rate 12, height 1.702 m (5' 7.01 ), weight 57.9 kg (127 lb 10.3 oz), SpO2 100%. Physical Exam Constitutional: Appearance: She is ill-appearing. HENT: Head: Normocephalic and atraumatic. Cardiovascular: Rate and Rhythm: Normal rate and regular rhythm. Pulmonary: Comments: Decreased BS bilaterally Abdominal: General: Abdomen is flat. Palpations: Abdomen is soft. Skin: General: Skin is warm and dry. Labs: Results for orders placed or performed during the hospital encounter of 06/23/25 (from the past 24 hours) Hemoglobin and hematocrit Status: Abnormal Collection Time: 06/27/25 7:53 PM Result Value Ref Range Hemoglobin 8.7 (L) 11.2 - 15.7 GM/DL Hematocrit 28.7 (L) 34.1 - 44.9 % Glucose, Nova Meter Status: None Collection Time: 06/27/25 7:59 PM Result Value Ref Range POC-GLUCOSE 105 70 - 110 mg/dL B[employer]s Tester [id number] CBC with automated diff Status: Abnormal Collection Time: 06/28/25 2:34 AM Result Value Ref Range WBC 4.9 4.0 - 10.0 K/??L RBC 3.07 (L) 3.93 - 5.22 M/??L Hemoglobin 8.7 (L) 11.2 - 15.7 GM/DL Hematocrit 29.3 (L) 34.1 - 44.9 % MCV 95 79 - 95 fL MCH 28.3 25.6 - 32.2 pg MCHC 29.7 (L) 32.2 - 35.5 GM/DL RDW 18.7 (H) 11.7 - 14.4 % Platelets 51 (L) 140 - 375 K/CU MM MPV 12.6 (H) 9.4 - 12.3 fL % Neutros 66 34 - 71 % % Lymphs 21 19 - 52 % % Monos 8 5 - 13 % % Eos 5 1 - 6 % % Baso 1 0 - 1 % NRBC Absolute <0.01 0 - 0.012 K/ul # Neutros 3.20 1.56 - 6.13 K/??L # Lymphs 1.00 (L) 1.18 - 3.74 K/??L # Monos 0.37 0.24 - 0.86 K/??L # Eos 0.22 0.04 - 0.36 K/??L # Baso 0.04 0.01 - 0.08 K/??L Immature Granulocytes-Relative 0.80 (H) 0.01 - 0.43 % # IG 0.04 (H) 0.00 - 0.03 K/uL Comprehensive metabolic panel Status: Abnormal Collection Time: 06/28/25 2:34 AM Result Value Ref Range Sodium 140 136 - 145 meq/L Potassium 4.5 3.4 - 5.1 meq/L Chloride 101 98 - 112 meq/L CO2 25 22 - 29 meq/L Calcium 7.9 (L) 8.4 - 10.2 mg/dL Glucose 130 (H) 74 - 100 mg/dL BUN 41.0 (H) 9.8 - 20.1 mg/dL Creatinine 2.43 (H) 0.57 - 1.11 mg/dL BUN/Creatinine 17 8 - 20 eGFR (mL/min/1.73m2) 23 (L) >=60 mL/min/1.73m2 Albumin 2.3 (L) 3.5 - 5.0 g/dL Alkaline Phosphatase 182 (H) 40 - 150 U/L ALT 7 <=34 U/L AST 15 11 - 34 U/L Total Bilirubin 0.7 0.2 - 1.2 mg/dL Protein, Total 5.9 (L) 6.4 - 8.3 g/dL Globulin 3.6 2.5 - 4.1 g/dL Anion Gap 19 (H) 4 - 12 A/G Ratio 0.6 (L) 0.7 - 1.9 Osmolality Calc 291.3 mOsm/kg Magnesium Status: Normal Collection Time: 06/28/25 2:34 AM Result Value Ref Range Magnesium 1.7 1.6 - 2.6 mg/dL Glucose, Nova Meter Status: Abnormal Collection Time: 06/28/25 5:34 AM Result Value Ref Range POC-GLUCOSE 111 (H) 70 - 110 mg/dL Bellows Tester [id number] Glucose, Nova Meter Status: Abnormal Collection Time: 06/28/25 11:20 AM Result Value Ref Range POC-GLUCOSE 116 (H) 70 - 110 mg/dL Bellows Tester [id number] ECHO COMPLETE (DOPPLER / COLOR) W OR WO CONTRAST TRANSTHORACIC ECHOCARDIOGRAPHY REPORT Demographics Patient Name: VIET VORA : 1970 Age: 55 year(s) Corporate ID Number: [id number] Gender Female Social Work Associate: Familia Garcia, Height: 67 inches [facility] Referring Physician: ADEBAYO TORRES Weight: 132 pounds Interpreting MINDY MCKEON MD BMI: 20.67 kg/m^2 Physician: Date of Service: 06/24/2025 Blood Pressure: 154/92 mmHg Room Number: 566 Type of Study: TTE procedure: ECHO COMPLETE (DOPPLER / COLOR) W OR WO CONTRAST. Patient Status: [facility] Study Location: PortableTechnical Quality: Adequate visualization History/Tech Notes: Indication: shortness of breath R06.02, CHF Impression: ######################################## Definity ultrasound enhancing agent administered for endocardial border definition. Normal sized left ventricle. Mild left ventricular hypertrophy. Visually estimated ejection fraction 20% +/- 5%. Severe left ventricular systolic dysfunction with abnormal systolic strain pattern. Restrictive filling pattern consistent with severely increased LV filling pressure (Grade III Diastolic dysfunction). Moderate (2+) mitral regurgitation. PISA ERO: 0.3 cm2. Moderate (2+) tricuspid regurgitation. Severe pulmonary hypertension. RVSP 90 mmHg. Moderate pulmonic regurgitation (2+). Severely abnormal left atrial volume index 58 ml/m^2. Severely dilated right ventricle. Abnormal TAPSE; abnormal right ventricular function. Elevated central venous pressure >15mmHg. ######################################## Measurements Summary: LVEDd: 4.92 cm LVESd: 4.13 cm IVSEd: 1.2 cm AO Root:2.9 cm LVPWd: 1.12 cm Contractility Score Global Left Ventricular Hypokinesis was noted. LV regional wall motion: (0-Not visualized 1-Normal 2-Hypokinesis 3-Akinesis 4-Dyskinesis 5-Aneurysm) Left Ventricle Peak E-wave: 1.1 Peak A-wave: 0.43 m/s E/A ratio: 2.58 m/s Volume [id number] LV length: 8.52 cm ml Volume .42 ml LVOT diameter: 1.7 cm Normal sized left ventricle. Mild left ventricular hypertrophy. Visually estimated ejection fraction 20% +/- 5%. Severe left ventricular systolic dysfunction with abnormal systolic strain pattern. Restrictive filling pattern consistent with severely increased LV filling pressure (Grade III Diastolic dysfunction). No left ventricular masses or thrombi. Right Ventricle Diastolic dimension: 4.96 RV systolic pressure: 90.15 mmHg cm Severely dilated right ventricle. Abnormal TAPSE; abnormal right ventricular function. Left Atrium LA dimension: 4.6 cm LA volume:98.51 ml LA/Aorta: 1.59 Severely abnormal left atrial volume index 58 ml/m^2. Intact atrial septum. No atrial mass or thrombus. Right Atrium Normal sized right atrium. Intact atrial septum. No atrial mass or thrombus. Mitral Valve Deceleration time: Area PHT: 3.32 cm^2 Mean velocity: 121.63 msec P1/2t: 66.19 msec 0.79 m/s MR velocity: 5.13 Mean gradient: m/s 2.88 mmHg Area (continuity): Peak gradient: 1.35 cm^2 8.04 mmHg MR VTI: 207.26 cm Thickened mitral valve leaflets. Mitral valve annulus calcification. Moderate (2+) mitral regurgitation. PISA ERO: 0.3 cm2. No mitral stenosis. No masses or vegetations seen. Aortic Valve AI P1/2t: 406.25 msec Peak velocity: 1.17 m/s LVOT VTI: 20.6 cm Peak gradient: 5.44 mmHg Deceleration time: 1400.88 msec Three cusped aortic valve. Thickened free edges of the aortic valve leaflets. Nodular calcification of LCC noted. Slice artifact of LCC calcification noted in PLAX view. Mild aortic regurgitation. No aortic stenosis. No masses or vegetations seen. Tricuspid Valve TR velocity: 4.33 m/s TR gradient: 75.00006 mmHg Estimated RAP: 15 mmHg RVSP: 90.15 mmHg Structurally normal tricuspid valve. Moderate (2+) tricuspid regurgitation. Severe pulmonary hypertension. RVSP 90 mmHg. No tricuspid stenosis. No masses or vegetations seen. Pulmonic Valve Acceleration time: 110.37 msec PASP: 90.15 mmHg Structurally normal pulmonic valve. Moderate pulmonic regurgitation (2+). No pulmonic stenosis. No masses or vegetations seen. Great Vessels Aorta Aortic Root: 2.9 cm LVOT Diameter: 1.7 cm Visualized thoracic aorta is normal. Normal aortic root. No evidence of dissection. Dilated IVC with no inspiratory collapse. Elevated central venous pressure >15mmHg. Pericardium / Pleura No pericardial effusion. Other Definity ultrasound enhancing agent administered for endocardial border definition. XR chest 2 views Narrative: TWO-VIEW CHEST 06/24/2025 2:10 PM HISTORY: Pleural effusion. Postthoracentesis. COMPARISON: June 23, 2025 FINDINGS: The cardiac silhouette is mildly enlarged. The aortic contours are normal. The mediastinal and hilar structures are unremarkable. There is pulmonary vascular congestion with a moderate right pleural effusion. There is right lower lobe consolidation. There is no pneumothorax. Status post median sternotomy. Impression: No pneumothorax post thoracentesis. Pulmonary vascular congestion with right lower lobe consolidation and moderate right pleural effusion. Images reviewed, interpreted, and dictated by Dr. Nas Rebolledo. Transcribed by Kalyan Wisdom PA-C US THORACENTESIS LT Narrative: ULTRASOUND-GUIDED THORACENTESIS WITH TUBE INSERTION HISTORY: Left pleural effusion. ATTENDING RADIOLOGIST: Dr. Rebolledo. PHYSICIAN MEDICAL LEGAL INVESTIGATOR: Kalyan Wisdom PA-C. TECHNIQUE: Informed consent was obtained from the patient. The indications and complications were discussed prior to beginning the procedure. This included, but was not limited to, pain, bleeding, infection, and pneumothorax requiring chest tube placement. The left back was then prepped and draped in sterile fashion. 1% lidocaine was used for local anesthesia. Utilizing sonographic guidance, a standard thoracentesis needle and sheath were inserted into the pleural space. The needle was removed and the catheter was left in the pleural space. Approximately 300 mL of clear yellow pleural fluid was successfully removed without complication. The tube was subsequently removed from the pleural space. The patient tolerated the procedure well. Sample of the fluid was sent to lab for preordered studies. Impression: Technically successful sonographic-guided left thoracentesis with tube insertion as above. Images reviewed, interpreted, and dictated by Dr. Nas Rebolledo. Transcribed by Kalyan Wisdom PA-C Assessment 1. Volume overload/moderate to large pleural effusions 2. End-stage renal disease on dialysis Tuesday 3. Pancytopenia/underlying liver cirrhosis 4. Acute exacerbation of CHF due to diastolic dysfunction 5. COPD 6. Severe protein energy malnourishment 7. History of CAD prior stenting 8.NSTEMI. Plan -Evaluate on daily basis to volume status, otherwise we will resume Tuesday schedule,will dialyze tomorrow -Patient has pancytopenia likely underlying liver cirrhosis/hematology malignancy, extra managementas per primary -Fluid restriction 1.5 L 24-hour with 2 g of salt restriction 24-hour with dietitian consult -Avoid nephrotoxins -Strict intake and output -Bladder scan as needed -Keep MAP above 65 and hemoglobin above 7 -Renally dose medications and antibiotics -Monitor kidney function electrolytes on daily basis -Would recommend palliative consultation/hospice given the several comorbidities of this patient and poor functional status and poor quality of life with very high mortality given the above comorbidities -Thanks for consultation [facility] [address] [place], [place], [address] Phone #[phone] Fax #[phone] High complex case * Kylah Munguia RN - 06/27/2025 4:48 PM EDT CHF Zone Tool provided to patient and/or family at bedside using the Explanation and Handout, Refused Teaching. * Mundo Díaz MD - 06/27/2025 12:26 PM EDT Subjective Mar Waldron is a 55 y.o. female on hospital day 5. Hgb 7.2 after PRBCs>> more awake & attentive Hgb 6.8 again >> PRBCs Review of Systems As above Objective Vitals: Temp: [97.7 ??F (36.5 ??C)-99.3 ??F (37.4 ??C)] 97.7 ??F (36.5 ??C) Pulse: [48-65] 59 Resp: [16-20] 17 BP: (132-192)/(41-145) 192/80 Intake/Output: Intake/Output Summary (Last 24 hours) at 06/28/2025 1226 Last data filed at 06/27/2025 1800 Gross per 24 hour Intake 730 ml Output 0 ml Net 730 ml Physical exam: General: Alert and interactive, in mild distress. Eyes: Conjunctiva appropriate, Sclera white HENT: Normocephalic, adequate hearing, moist oral mucosa Lungs: Increased work of breathing, diminished breath sounds bilateral bases Heart: Tachycardic Abdomen: Soft, non-tender, non-distended, active bowel sounds Neurologic: Awake, alert and oriented X 3, sensory intact, no focal deficits Psychiatric: Cooperative, appropriate mood and affect Labs: Recent Labs Lab(s) Units 06/28/25 1120 06/28/25 0534 06/28/25 0234 06/27/25195806/27/25 19506/27/25 0514 06/27/25 0306 06/26/25 1056 06/26/25 0811 06/26/25 0509 06/26/25 0118 06/25/25 1046 06/25/25 1026 06/25/25 0459 06/24/252 06/24/2545606/23/252326 WBC K/ L -- -- 4.9 -- -- -- 3.8* -- 4.6 -- 4.0 -- -- < > 4.8 < > -- HGB GM/DL -- -- 8.7* -- 8.7* -- 6.8* -- 7.2* -- 7.1* < > -- < > 7.1* < > -- HCT % -- -- 29.3* -- 28.7* -- 24.1* -- 25.1* -- 25.3* < > -- < > 24.5* < > -- PLT K/CU MM -- -- 51* -- -- -- 50* -- 59* -- 62* -- -- < > 67* < > -- PROTIME seconds -- -- -- -- -- -- -- -- -- -- -- -- 12.6* -- 12.4* -- 11.4 INR -- -- -- -- -- -- -- -- -- -- -- -- 1.15* -- 1.13* -- 1.03 MG mg/dL -- -- 1.7 -- -- -- 1.6 -- -- -- 1.7 -- -- -- -- -- -- NA meq/L -- -- 140 -- -- -- 137 -- -- -- 139 -- -- -- -- < > -- K meq/L -- -- 4.5 -- -- -- 3.8 -- -- -- 4.2 -- -- -- -- < > -- CL meq/L -- -- 101 -- -- -- 101 -- -- -- 101 -- -- -- -- < > -- CO2 meq/L -- -- 25 -- -- -- 25 -- -- -- 24 -- -- -- -- < > -- BUN mg/dL -- -- 41.0* -- -- -- 27.3* -- -- -- 42.1* -- -- -- -- < > -- CREATININE mg/dL -- -- 2.43* -- -- -- 1.85* -- -- -- 2.76* -- -- -- -- < > -- EGFR mL/min/1.73m2 -- -- 23* -- -- -- 32* -- -- -- 20* -- -- -- -- < > -- GLUCOSE mg/dL 116* 111* 130* < > -- < > 198* < > -- < > 166* < > -- < > -- < > -- CALCIUM mg/dL -- -- 7.9* -- -- -- 7.8* -- -- -- 7.8* -- -- -- -- < > -- PHOS mg/dL -- -- -- -- -- -- -- -- -- -- 5.1* -- -- -- -- -- -- ALKPHOS U/L -- -- 182* -- -- -- 194* -- -- -- 199* -- -- -- -- < > -- BILITOT mg/dL -- -- 0.7 -- -- -- 0.6 -- -- -- 0.6 -- -- -- -- < > -- PROT g/dL -- -- 5.9* -- -- -- 5.9* -- -- -- 5.8* -- -- -- -- < > -- ALT U/L -- -- 7 -- -- -- <7 -- -- -- 7 -- -- -- -- < > -- AST U/L -- -- 15 -- -- -- 20 -- -- -- 28 -- -- -- -- < > -- < > = values in this interval not displayed. Results for orders placed or performed during the hospital encounter of 06/23/25 (from the past 24 hours) Glucose, Nova Meter Status: Abnormal Collection Time: 06/27/25 3:52 PM Result Value Ref Range POC-GLUCOSE 156 (H) 70 - 110 mg/dL Bellows Tester [id number] Hemoglobin and hematocrit Status: Abnormal Collection Time: 06/27/25 7:53 PM Result Value Ref Range Hemoglobin 8.7 (L) 11.2 - 15.7 GM/DL Hematocrit 28.7 (L) 34.1 - 44.9 % Glucose, Nova Meter Status: None Collection Time: 06/27/25 7:59 PM Result Value Ref Range POC-GLUCOSE 105 70 - 110 mg/dL Bellows Tester [id number] CBC with automated diff Status: Abnormal Collection Time: 06/28/25 2:34 AM Result Value Ref Range WBC 4.9 4.0 - 10.0 K/??L RBC 3.07 (L) 3.93 - 5.22 M/??L Hemoglobin 8.7 (L) 11.2 - 15.7 GM/DL Hematocrit 29.3 (L) 34.1 - 44.9 % MCV 95 79 - 95 fL MCH 28.3 25.6 - 32.2 pg MCHC 29.7 (L) 32.2 - 35.5 GM/DL RDW 18.7 (H) 11.7 - 14.4 % Platelets 51 (L) 140 - 375 K/CU MM MPV 12.6 (H) 9.4 - 12.3 fL % Neutros 66 34 - 71 % % Lymphs 21 19 - 52 % % Monos 8 5 - 13 % % Eos 5 1 - 6 % % Baso 1 0 - 1 % NRBC Absolute <0.01 0 - 0.012 K/ul # Neutros 3.20 1.56 - 6.13 K/??L # Lymphs 1.00 (L) 1.18 - 3.74 K/??L # Monos 0.37 0.24 - 0.86 K/??L # Eos 0.22 0.04 - 0.36 K/??L # Baso 0.04 0.01 - 0.08 K/??L Immature Granulocytes-Relative 0.80 (H) 0.01 - 0.43 % # IG 0.04 (H) 0.00 - 0.03 K/uL Comprehensive metabolic panel Status: Abnormal Collection Time: 06/28/25 2:34 AM Result Value Ref Range Sodium 140 136 - 145 meq/L Potassium 4.5 3.4 - 5.1 meq/L Chloride 101 98 - 112 meq/L CO2 25 22 - 29 meq/L Calcium 7.9 (L) 8.4 - 10.2 mg/dL Glucose 130 (H) 74 - 100 mg/dL BUN 41.0 (H) 9.8 - 20.1 mg/dL Creatinine 2.43 (H) 0.57 - 1.11 mg/dL BUN/Creatinine 17 8 - 20 eGFR (mL/min/1.73m2) 23 (L) >=60 mL/min/1.73m2 Albumin 2.3 (L) 3.5 - 5.0 g/dL Alkaline Phosphatase 182 (H) 40 - 150 U/L ALT 7 <=34 U/L AST 15 11 - 34 U/L Total Bilirubin 0.7 0.2 - 1.2 mg/dL Protein, Total 5.9 (L) 6.4 - 8.3 g/dL Globulin 3.6 2.5 - 4.1 g/dL Anion Gap 19 (H) 4 - 12 A/G Ratio 0.6 (L) 0.7 - 1.9 Osmolality Calc 291.3 mOsm/kg Magnesium Status: Normal Collection Time: 06/28/25 2:34 AM Result Value Ref Range Magnesium 1.7 1.6 - 2.6 mg/dL Glucose, Nova Meter Status: Abnormal Collection Time: 06/28/25 5:34 AM Result Value Ref Range POC-GLUCOSE 111 (H) 70 - 110 mg/dL [employer] Tester [id number] Glucose, Nova Meter Status: Abnormal Collection Time: 06/28/25 11:20 AM Result Value Ref Range POC-GLUCOSE 116 (H) 70 - 110 mg/dL [employer] T[employer] [id number] Radiology: XR chest 2 views Final Result No pneumothorax post thoracentesis. Pulmonary vascular congestion with right lower lobe consolidation and moderate right pleural effusion. Images reviewed, interpreted, and dictated by Dr. Nas Rebolledo. Transcribed by Kalyan Wisdom PA-C US THORACENTESIS LT Final Result Technically successful sonographic-guided left thoracentesis with tube insertion as above. Images reviewed, interpreted, and dictated by Dr. Nas Rebolledo. Transcribed by Kalyan Wisdom PA-C ECHO COMPLETE (DOPPLER / COLOR) W OR WO CONTRAST Final Result XR chest AP portable Final Result Impression: Probable acute pulmonary edema pattern Authenticated and abdomen limited (Results Pending) Medications: Scheduled Meds: acetaZOLAMIDE 250 mg oral BID 250 mg at 06/28/25 1132 aspirin 81 mg oral Daily 81 mg at 06/28/25 1131 atorvastatin 40 mg oral Every Night 40 mg at 06/27/252122 budesonide 0.5 mg nebulization 2 times daily 0.5 mg at 06/23/252044 carvediloL 12.5 mg oral BID w/breakfast & dinner 12.5 mg at 06/28/25 1117 doxazosin 2 mg oral BID 2 mg at 06/28/25 1118 hydrALAZINE 20 mg intravenous TID 20 mg at 06/28/25 1118 hydrALAZINE 75 mg oral 4x Daily 75 mg at 06/28/25 1117 insulin lispro 0-12 Units subcutaneous 4x Daily AC 4 Units at 06/27/25 0639 isosorbide mononitrate 120 mg oral Daily 120 mg at 06/28/25 1118 levothyroxine 88 mcg oral QAM (0600) 88 mcg at 06/28/25 0558 pantoprazole 40 mg oral Daily 40 mg at 06/28/25 1118 Continuous Infusions: Current Facility-Administered Medications Medication Dose Route Frequency Provider Last Rate Last Admin acetaminophen (TYLENOL) tablet 1,000 mg 1,000 mg oral Q6H PRN Dajuan Banuelos MD acetaZOLAMIDE (DIAMOX) tablet 250 mg 250 mg oral BID Djauan Banuelos MD 250 mg at 06/28/25 1132 albumin human 25 % IV 25 g 25 g intravenous PRN Blaine Moreno MD aspirin EC tablet 81 mg 81 mg oral Daily Vlad Waters PA-C 81 mg at 06/28/25 1131 atorvastatin (LIPITOR) tablet 40 mg 40 mg oral Every Night Vlad Waters PA-C 40 mg at 06/27/252122 budesonide (PULMICORT) nebulizer suspension 0.5 mg 0.5 mg nebulization 2 times daily Vlad Waters PA-C 0.5 mg at 06/23/252044 carvediloL (COREG) tablet 12.5 mg 12.5 mg oral BID w/breakfast & dinner Vlad Waters PA-C 12.5mg at 06/28/25 1117 cloNIDine (CATAPRES) tablet 0.1 mg 0.1 mg oral Q8H PRN Vlad Watres PA-C 0.1 mg at 06/24/25 1217 dextrose 50% (D50W) injection 25 g 25 g intravenous Q15 Min PRN Vlad Waters PA-C diphenhydrAMINE (BENADRYL) capsule 25 mg 25 mg oral Every Night PRN Dajuan Banuelos MD doxazosin (CARDURA) tablet 2 mg 2 mg oral BID Dajuan Banuelos MD 2 mg at 06/28/25 1118 glucagon injection 1 mg 1 mg intraMUSCULAR Q15 Min PRN Vlad Waters PA-C glucose chew tab 16 g 16 g oral Q15 Min PRN Vlad Waters PA-C heparin bolus from bag 3,600 Units 60 Units/kg intravenous Q6H PRN Mundo Díaz MD Or heparin bolus from bag 2,400 Units 40 Units/kg intravenous Q6H PRN Mundo Díaz MD [Held by provider] heparin infusion 25,000 units in sodium chloride 0.45% (NS) 250 mL (100 units/mL) 2-24 Units/kg/hr intravenous Titrated Mundo Díaz MD Paused at 06/25/252112 hydrALAZINE (APRESOLINE) injection 20 mg 20 mg intravenous TID GARCIA Villagran 20 mg at 118 hydrALAZINE (APRESOLINE) tablet 75 mg 75 mg oral 4x Daily Dajuan Banuelos MD 75 mg at 06/28/25 1117 insulin lispro (HUMALOG, ADMELOG) injection 0-12 Units 0-12 Units subcutaneous 4x Daily AC Vlad Waters PA-C 4 Units at 06/27/25 0639 ipratropium-albuteroL (DUO-NEB) 0.5 mg-3 mg(2.5 mg base)/3 mL nebulizer solution 3 mL 3 mL nebulization Q6H PRN Vlad Waters PA-C isosorbide mononitrate (IMDUR) 24 hr tablet 120 mg 120 mg oral Daily Dajuan Banuelos MD 120 mg at 06/28/25 1118 levothyroxine (SYNTHROID) tablet 88 mcg 88 mcg oral QAM (0600) GARCIA Villagran 88 mcg at 06/28/25 0558 LORazepam (ATIVAN) tablet 0.5 mg 0.5 mg oral Q8H PRN Dajuan Banuelos MD 0.5 mg at 06/28/25 0939 magnesium sulfate IVPB 2 g in sterile water 50 mL (premix) 2 g intravenous Daily PRN Vlad Waters PA-C magnesium sulfate IVPB 2 g in sterile water 50 mL (premix) 2 g intravenous BID PRN Vlad Waters PA-C melatonin tablet 5 mg 5 mg oral Every Night PRN Vlad Waters PA-C 5 mg at 06/26/25 2033 morphine injection 2 mg 2 mg intravenous Q4H PRN Vlad Waters PA-C naloxone (NARCAN) injection 0.2 mg 0.2 mg intravenous Q2 Min PRN Dajuan Banuelos MD nitroglycerin (NITROSTAT) tablet 0.4 mg 0.4 mg sublingual Q5 Min PRN Vlad Waters PA-C ondansetron (ZOFRAN-ODT) disintegrating tablet 4 mg 4 mg oral Q8H PRN Vlad Waters PA-C Or ondansetron (ZOFRAN) injection 4 mg 4 mg intravenous Q8H PRN Vlad Waters PA-C oxyCODONE (ROXICODONE) immediate release tablet 10 mg 10 mg oral Q4H PRN Vlad Waters PA-C 10 mg at 06/28/25 0939 pantoprazole (PROTONIX) EC tablet 40 mg 40 mg oral Daily Vlad Waters PA-C 40 mg at 06/28/25 1118 sodium chloride 0.9% (NS) bolus 250 mL intravenous Daily PRN Blaine Moreno MD sodium chloride 0.9% (NS) bolus 250 mL intravenous Daily PRN Blaine Moreno MD sodium chloride 0.9% (NS) bolus 250 mL intravenous Daily PRN Blaine Moreno MD sodium chloride flush 10 mL 10 mL intravenous PRN Dajuan Banuelos MD PRN Meds: @MEDSPRN@ Assessment and Plan NSTEMI Severe anemia History of CAD prior stenting. Likely related to ESRD Thrombocytopenia>>>chronic - Heparin infusion>>> Held - Packed RBCs to keep hemoglobin above 7.>>> 6.4> 7.2 > 6.8 > PRBC today. - Patient is currently on aspirin atorvastatin Coreg Imdur. - Cont Protonix twice daily. Acute diastolic heart failure exacerbation Complicated by ESRD EF 55% - Coreg, treat NSTEMI, ultrafiltration, treat anemia, - left thoracentesis done 06/24/2025 >>>100mL removed. - Oxygen low-salt diet - Continue Tuesday dialysis Diabetes sliding scale insulin Thrombocytopenia/anemia - Unexplained - ESRD, liver disease, bone marrow failure COPD continue as needed inhalers. Hypothyroidism continue levothyroxine. Renal mass concerning for malignancy. Follow-up urology. Protein calorie malnutrition present on admission Boost twice daily GOC Discussion With pt & family D/W Dr Pereira with Palliative Pt now is DNR/DNI full Tx Diet: Orders Placed This Encounter Procedures Heart Healthy Diet DVT ppx: IV heparin PUD ppx: Code Status: DNR - Limited Additional Intervention MDM: 1 PRBC, AM labs, pt refused Endoscopy by GI Discharge Planning: Unable to determine. * Mindy Mckeon MD - 06/27/2025 5:23 AM EDT [facility] Basic Information: Name Mar Davalosy, 1970, 55 y.o., female PCP: Osmani Becker MD Admit Date 06/23/2025 Patient Location [id number] Chief Complaint/Consult reason: Short of breath short of breath Consult for elevated troponin Subjective: Still short of air, not feeling well, ill-appearing, Health Status: Allergies Basaglar Kwikpen U-100 Insulin [Insulin Glargine] and Lisinopril Home Medications: Prior to Admission medications Medication Sig Start Date End Date Taking? Authorizing Provider acetaZOLAMIDE (DIAMOX) 250 MG tablet Take 1 tablet (250 mg total) by mouth 2 (two) times daily. Historical ProviderMD aspirin 325 MG tablet Take 1 tablet (325 mg total) by mouth daily. Historical ProviderMD carvediloL (COREG) 25 MG tablet Take 1 tablet (25 mg total) by mouth 2 (two) times daily with breakfast and dinner. Historical ProviderMD cloNIDine HCL (CATAPRES) 0.1 MG tablet Take 1 tablet (0.1 mg total) by mouth 2 (two) times daily asneeded (sys greater than 180). Historical ProviderMD clopidogreL (PLAVIX) 75 mg tablet Take 1 tablet (75 mg total) by mouth daily. Historical ProviderMD doxazosin (CARDURA) 2 MG tablet Take 1 tablet (2 mg total) by mouth 2 (two) times daily. HistoricalProviderMD ezetimibe (ZETIA) 10 mg tablet Take 1 tablet (10 mg total) by mouth nightly. Historical ProviderMD hydrALAZINE (APRESOLINE) 50 MG tablet Take 1.5 tablets (75 mg total) by mouth 4 (four) times daily.Historical ProviderMD isosorbide mononitrate (IMDUR) 60 MG 24 hr tablet Take 2 tablets (120 mg total) by mouth daily. Historical ProviderMD levothyroxine (SYNTHROID, LEVOTHROID) 75 MCG tablet Take 1 tablet (75 mcg total) by mouth Every morning on an empty stomach. Historical ProviderMD oxyCODONE-acetaminophen (PERCOCET) 10-325 mg per tablet Take 1 tablet by mouth every 6 (six) hours as needed for pain. Historical ProviderMD pantoprazole (PROTONIX) 20 MG tablet Take 1 tablet (20 mg total) by mouth daily. Historical ProviderMD valsartan (DIOVAN) 160 MG tablet Take 1 tablet (160 mg total) by mouth 2 (two) times daily. Historical ProviderMD Past Medical History: Pt has a past medical history of Arthritis, Cancer (HCC), CHF (congestive heart failure) (HCC), Chronic kidney disease requiring chronic dialysis (HCC), COPD (chronic obstructive pulmonary disease) (HCC), Hypertension, Murmur, and Thyroid disease. Surgical History: Pt has a past surgical history that includes triple bypass (2012); left arm fistula (Left); Eye surgery; Cataract extraction; Gallbladder surgery; Appendectomy; Hysterectomy; and Cardiac surgery. Tobacco History Pt reports that she has been smoking cigarettes. She has never used smokeless tobacco. Alcohol History Pt reports no history of alcohol use. Drug Use History Pt reports current drug use. Drug: Marijuana. Family History family history is not on file. OBJECTIVE Vital ranges lat 24 hours Temp: [97.5 ??F (36.4 ??C)-98.8 ??F (37.1 ??C)] 97.9 ??F (36.6 ??C) Pulse: [49-125] 57 Resp: [18-24] 20 BP: (119-191)/(24-100) 150/50 Intake and Output 24 hours: Intake/Output Summary (Last 24 hours) at 06/26/20252236 Last data filed at 06/26/2025 1715 Gross per 24 hour Intake 500 ml Output 2000 ml Net -1500 ml Net I&O this admission: Net IO Since Admission: -2,461 mL [06/26/252236] PHYSICAL EXAMINATION General: Patient was alert and oriented, moderate distress, ill-appearing HEENT: atraumatic and normocephalic, no conjunctival injection, no icterus Neck: supple, no JVD,no bruit, no thyromegaly Chest/Resp: Bilateral crepitations Cardio: S1 and S2 normal, no murmurs, gallops or rubs. Abdomen/GI: The abdomen is soft without tenderness Extremities: + Skin: no rashes Neuro: no focal neurologic deficits grossly AOx3 Inpatient Medications Current Facility-Administered Medications Medication Dose Route Frequency Provider Last Rate Last Admin acetaminophen (TYLENOL) tablet 1,000 mg 1,000 mg oral Q6H PRN Dajuan Banuelos MD acetaZOLAMIDE (DIAMOX) tablet 250 mg 250 mg oral BID Dajuan Banuelos MD 250 mg at 06/26/252032 albumin human 25 % IV 25 g 25 g intravenous PRN Blaine Moreno MD aspirin EC tablet 81 mg 81 mg oral Daily Vlad Waters PA-C 81 mg at 06/26/25816 atorvastatin (LIPITOR) tablet 40 mg 40 mg oral Every Night Vlad Waters PA-C 40 mg at 06/26/252032 budesonide (PULMICORT) nebulizer suspension 0.5 mg 0.5 mg nebulization 2 times daily Vlad Waters PA-C 0.5 mg at 06/23/252044 carvediloL (COREG) tablet 12.5 mg 12.5 mg oral BID w/breakfast & dinner Vlad Waters PA-C 12.5mg at 06/26/251815 cloNIDine (CATAPRES) tablet 0.1 mg 0.1 mg oral Q8H PRN Vlad Waters PA-C 0.1 mg at 06/24/25 121 dextrose 50% (D50W) injection 25 g 25 g intravenous Q15 Min PRN Vlad Waters PA-C diphenhydrAMINE (BENADRYL) capsule 25 mg 25 mg oral Every Night PRN Dajuan Banuelos MD doxazosin (CARDURA) tablet 2 mg 2 mg oral BID Dajuan Banuelos MD 2 mg at 06/26/252032 glucagon injection 1 mg 1 mg intraMUSCULAR Q15 Min PRN Vlad Waters PA-C glucose chew tab 16 g 16 g oral Q15 Min PRN Vlad Waters PA-C heparin bolus from bag 3,600 Units 60 Units/kg intravenous Q6H PRN Mundo Díaz MD Or heparin bolus from bag 2,400 Units 40 Units/kg intravenous Q6H PRN Mundo Díaz MD [Held by provider] heparin infusion 25,000 units in sodium chloride 0.45% (NS) 250 mL (100 units/mL) 2-24 Units/kg/hr intravenous Titrated Mundo Díaz MD Paused at 06/25/252112 hydrALAZINE (APRESOLINE) injection 20 mg 20 mg intravenous TID GARCIA Villagran 20 mg at hydrALAZINE (APRESOLINE) tablet 75 mg 75 mg oral 4x Daily Dajuan Banuelos MD 75 mg at 06/26/251815 insulin lispro (HUMALOG, ADMELOG) injection 0-12 Units 0-12 Units subcutaneous 4x Daily AC Vlad Waters PA-C 2 Units at 06/26/25 0632 ipratropium-albuteroL (DUO-NEB) 0.5 mg-3 mg(2.5 mg base)/3 mL nebulizer solution 3 mL 3 mL nebulization Q6H PRN Vlad Waters PA-C isosorbide mononitrate (IMDUR) 24 hr tablet 120 mg 120 mg oral Daily Dajuan Banuelos MD 120 mg at 06/26/25 0817 levothyroxine (SYNTHROID) tablet 88 mcg 88 mcg oral QAM (0600) GARCIA Villagran 88 mcg at 06/26/25 0606 LORazepam (ATIVAN) tablet 0.5 mg 0.5 mg oral Q8H PRN Dajuan Banuelos MD 0.5 mg at 06/26/25 1404 magnesium sulfate IVPB 2 g in sterile water 50 mL (premix) 2 g intravenous Daily PRN Vlad Waters PA-C magnesium sulfate IVPB 2 g in sterile water 50 mL (premix) 2 g intravenous BID PRN Vlad Waters PA-C melatonin tablet 5 mg 5 mg oral Every Night PRN Vlad Waters PA-C 5 mg at 06/26/252032 morphine injection 2 mg 2 mg intravenous Q4H PRN Vlad Waters PA-C naloxone (NARCAN) injection 0.2 mg 0.2 mg intravenous Q2 Min PRN Dajuan Banuelos MD nitroglycerin (NITROSTAT) tablet 0.4 mg 0.4 mg sublingual Q5 Min PRN Vlad Waters PA-C ondansetron (ZOFRAN-ODT) disintegrating tablet 4 mg 4 mg oral Q8H PRN Vlad Waters PA-C Or ondansetron (ZOFRAN) injection 4 mg 4 mg intravenous Q8H PRN Vlad Watesr PA-C oxyCODONE (ROXICODONE) immediate release tablet 10 mg 10 mg oral Q4H PRN Vlad Waters PA-C 10 mg at 06/26/252032 pantoprazole (PROTONIX) EC tablet 40 mg 40 mg oral Daily Vlad Waters PA-C 40 mg at 06/26/25 0817 sodium chloride 0.9% (NS) bolus 250 mL intravenous Daily PRN Blaine Moreno MD sodium chloride 0.9% (NS) bolus 250 mL intravenous Daily PRN Blaine Moreno MD sodium chloride flush 10 mL 10 mL intravenous PRN Dajuan Banuelos MD Results Review: Labs: WBC Date Value Ref Range Status 06/26/2025 4.6 4.0 - 10.0 K/??L Final 06/26/2025 4.0 4.0 - 10.0 K/??L Final 06/25/2025 4.1 4.0 - 10.0 K/??L Final Hemoglobin Date Value Ref Range Status 06/26/2025 7.2 (L) 11.2 - 15.7 GM/DL Final 06/26/2025 7.1 (L) 11.2 - 15.7 GM/DL Final 06/25/2025 7.5 (L) 11.2 - 15.7 GM/DL Final Platelets Date Value Ref Range Status 06/26/2025 59 (L) 140 - 375 K/CU MM Final 06/26/2025 62 (L) 140 - 375 K/CU MM Final 06/25/2025 60 (L) 140 - 375 K/CU MM Final Creatinine Date Value Ref Range Status 06/26/2025 2.76 (H) 0.57 - 1.11 mg/dL Final 06/24/2025 2.74 (H) 0.57 - 1.11 mg/dL Final 06/23/2025 2.72 (H) 0.57 - 1.11 mg/dL Final BUN Date Value Ref Range Status 06/26/2025 42.1 (H) 9.8 - 20.1 mg/dL Final 06/24/2025 39.6 (H) 9.8 - 20.1 mg/dL Final 06/23/2025 38.1 (H) 9.8 - 20.1 mg/dL Final Potassium Date Value Ref Range Status 06/26/2025 4.2 3.4 - 5.1 meq/L Final 06/24/2025 4.4 3.4 - 5.1 meq/L Final 06/23/2025 4.2 3.4 - 5.1 meq/L Final Sodium Date Value Ref Range Status 06/26/2025 139 136 - 145 meq/L Final 06/24/2025 142 136 - 145 meq/L Final 06/23/2025 141 136 - 145 meq/L Final Magnesium Date Value Ref Range Status 06/26/2025 1.7 1.6 - 2.6 mg/dL Final 06/16/2024 1.7 1.5 - 2.4 mg/dL Final 06/06/2024 1.8 1.5 - 2.4 mg/dL Final AST Date Value Ref Range Status 06/26/2025 28 11 - 34 U/L Final Comment: AST2 reagent used for testing does not contain P5P supplementation and therefore may miss AST elevations in patients with B6 deficiency. This population may be as high as 10% in the [place], with risk factors including malabsorption, drug interactions, and alcoholic hepatitis. ALT Date Value Ref Range Status 06/26/2025 7 <=34 U/L Final Comment: ALT2 reagent used for testing does not contain P5P supplementation and therefore may miss ALT elevations in patients with B6 deficiency. This population may be as high as 10% in the [place], with risk factors including malabsorption, drug interactions, and alcoholic hepatitis. Alkaline Phosphatase Date Value Ref Range Status 06/26/2025 199 (H) 40 - 150 U/L Final INR Date Value Ref Range Status 06/25/2025 1.15 (H) 0.80 - 1.10 Final Comment: Recommended therapeutic ranges using International Normalized Ratio (INR) are: INR RANGE 2.0 - 3.0 Routine oral anticoagulant therapy 2.5 - 3.5 Oral anticoagulant therapy for patients with thromboembolic events on standard doses of Coumadin and those with mechanical heart valves. Imaging: ECHO COMPLETE (DOPPLER / COLOR) W OR WO CONTRAST TRANSTHORACIC ECHOCARDIOGRAPHY REPORT Demographics Patient Name: VIET VORA : 1970 Age: 55 year(s) Corporate ID Number: [id number] Gender Female Social Work Associate: Familia Jose, Height: 67 inches [facility] Referring Physician: ADEBAYO TORRES Weight: 132 pounds Interpreting MINDY MCKEON MD BMI: 20.67 kg/m^2 Physician: Date of Service: 06/24/2025 Blood Pressure: 154/92 mmHg Room Number: 566 Type of Study: TTE procedure: ECHO COMPLETE (DOPPLER / COLOR) W OR WO CONTRAST. Patient Status: [facility] Study Location: PortableTechnical Quality: Adequate visualization History/Tech Notes: Indication: shortness of breath R06.02, CHF Impression: ######################################## Definity ultrasound enhancing agent administered for endocardial border definition. Normal sized left ventricle. Mild left ventricular hypertrophy. Visually estimated ejection fraction 20% +/- 5%. Severe left ventricular systolic dysfunction with abnormal systolic strain pattern. Restrictive filling pattern consistent with severely increased LV filling pressure (Grade III Diastolic dysfunction). Moderate (2+) mitral regurgitation. PISA ERO: 0.3 cm2. Moderate (2+) tricuspid regurgitation. Severe pulmonary hypertension. RVSP 90 mmHg. Moderate pulmonic regurgitation (2+). Severely abnormal left atrial volume index 58 ml/m^2. Severely dilated right ventricle. Abnormal TAPSE; abnormal right ventricular function. Elevated central venous pressure >15mmHg. ######################################## Measurements Summary: LVEDd: 4.92 cm LVESd: 4.13 cm IVSEd: 1.2 cm AO Root:2.9 cm LVPWd: 1.12 cm Contractility Score Global Left Ventricular Hypokinesis was noted. LV regional wall motion: (0-Not visualized 1-Normal 2-Hypokinesis 3-Akinesis 4-Dyskinesis 5-Aneurysm) Left Ventricle Peak E-wave: 1.1 Peak A-wave: 0.43 m/s E/A ratio: 2.58 m/s Volume [id number] LV length: 8.52 cm ml Volume [id number] ml LVOT diameter: 1.7 cm Normal sized left ventricle. Mild left ventricular hypertrophy. Visually estimated ejection fraction 20% +/- 5%. Severe left ventricular systolic dysfunction with abnormal systolic strain pattern. Restrictive filling pattern consistent with severely increased LV filling pressure (Grade III Diastolic dysfunction). No left ventricular masses or thrombi. Right Ventricle Diastolic dimension: 4.96 RV systolic pressure: 90.15 mmHg cm Severely dilated right ventricle. Abnormal TAPSE; abnormal right ventricular function. Left Atrium LA dimension: 4.6 cm LA volume:98.51 ml LA/Aorta: 1.59 Severely abnormal left atrial volume index 58 ml/m^2. Intact atrial septum. No atrial mass or thrombus. Right Atrium Normal sized right atrium. Intact atrial septum. No atrial mass or thrombus. Mitral Valve Deceleration time: Area PHT: 3.32 cm^2 Mean velocity: 121.63 msec P1/2t: 66.19 msec 0.79 m/s MR velocity: 5.13 Mean gradient: m/s 2.88 mmHg Area (continuity): Peak gradient: 1.35 cm^2 8.04 mmHg MR VTI: 207.26 cm Thickened mitral valve leaflets. Mitral valve annulus calcification. Moderate (2+) mitral regurgitation. PISA ERO: 0.3 cm2. No mitral stenosis. No masses or vegetations seen. Aortic Valve AI P1/2t: 406.25 msec Peak velocity: 1.17 m/s LVOT VTI: 20.6 cm Peak gradient: 5.44 mmHg Deceleration time: 1400.88 msec Three cusped aortic valve. Thickened free edges of the aortic valve leaflets. Nodular calcification of LCC noted. Slice artifact of LCC calcification noted in PLAX view. Mild aortic regurgitation. No aortic stenosis. No masses or vegetations seen. Tricuspid Valve TR velocity: 4.33 m/s TR gradient: 75.43418 mmHg Estimated RAP: 15 mmHg RVSP: 90.15 mmHg Structurally normal tricuspid valve. Moderate (2+) tricuspid regurgitation. Severe pulmonary hypertension. RVSP 90 mmHg. No tricuspid stenosis. No masses or vegetations seen. Pulmonic Valve Acceleration time: 110.37 msec PASP: 90.15 mmHg Structurally normal pulmonic valve. Moderate pulmonic regurgitation (2+). No pulmonic stenosis. No masses or vegetations seen. Great Vessels Aorta Aortic Root: 2.9 cm LVOT Diameter: 1.7 cm Visualized thoracic aorta is normal. Normal aortic root. No evidence of dissection. Dilated IVC with no inspiratory collapse. Elevated central venous pressure >15mmHg. Pericardium / Pleura No pericardial effusion. Other Definity ultrasound enhancing agent administered for endocardial border definition. XR chest 2 views Narrative: TWO-VIEW CHEST 06/24/2025 2:10 PM HISTORY: Pleural effusion. Postthoracentesis. COMPARISON: June 23, 2025 FINDINGS: The cardiac silhouette is mildly enlarged. The aortic contours are normal. The mediastinal and hilar structures are unremarkable. There is pulmonary vascular congestion with a moderate right pleural effusion. There is right lower lobe consolidation. There is no pneumothorax. Status post median sternotomy. Impression: No pneumothorax post thoracentesis. Pulmonary vascular congestion with right lower lobe consolidation and moderate right pleural effusion. Images reviewed, interpreted, and dictated by Dr. Nas Rebolledo. Transcribed by Kalyan Wisdom PA-C US THORACENTESIS LT Narrative: ULTRASOUND-GUIDED THORACENTESIS WITH TUBE INSERTION HISTORY: Left pleural effusion. ATTENDING RADIOLOGIST: Dr. Rebolledo. PHYSICIAN MEDICAL LEGAL INVESTIGATOR: Kalyan Wisdom PA-C. TECHNIQUE: Informed consent was obtained from the patient. The indications and complications were discussed prior to beginning the procedure. This included, but was not limited to, pain, bleeding, infection, and pneumothorax requiring chest tube placement. The left back was then prepped and draped in sterile fashion. 1% lidocaine was used for local anesthesia. Utilizing sonographic guidance, a standard thoracentesis needle and sheath were inserted into the pleural space. The needle was removed and the catheter was left in the pleural space. Approximately 300 mL of clear yellow pleural fluid was successfully removed without complication. The tube was subsequently removed from the pleural space. The patient tolerated the procedure well. Sample of the fluid was sent to lab for preordered studies. Impression: Technically successful sonographic-guided left thoracentesis with tube insertion as above. Images reviewed, interpreted, and dictated by Dr. Nas Rebolledo. Transcribed by Kalyan Wisdom PA-C Problem list: Principal Problem: CHF exacerbation (HCC) Active Problems: Fluid overload Impression and Plan: IMPRESSION: Non-ST elevation [place] Acute combined systolic and diastolic heart failure with reduced ejection fraction, stage D, NYHA class 4 Severe LV dysfunction with EF of 20% (06/25/2025 Moderate mitral regurgitation Moderate tricuspid regurgitation Severe pulmonary hypertension End-stage renal disease on hemodialysis Severe anemia Hypertension Dyslipidemia Diabetes mellitus PLAN: 06/27/2025 Patient with severe multiple comorbidities, severe LV dysfunction, end-stage renal disease on dialysis, severe anemia - I have long discussion with the patient and her family today about the goal of care, patient would like to go with medical therapy/comfort care measures, she does not want any more invasive procedures in the future. - Would recommend aspirin 81 mg p.o. daily -Patient is not a candidate for Plavix, given severe anemia -Patient is not candidate for cardiac rehab - Would recommend atorvastatin 80 mg p.o. nightly - Would recommend to add Imdur 120 mg p.o. daily -Giving end-stage renal disease on dialysis, unfortunately patient will not be candidate for most of guideline directed for cardiomyopathy. -Would recommend follow-up in the cardiology clinic in few weeks after discharge - No further cardiac testing at this time -Will sign off, please call cardiology service if you have any further question or concern. * Arlene Oneil RN - 06/26/2025 5:44 PM EDT 06/26/251714 Vitals Temp 97.9 ??F (36.6 ??C) Pulse 58 Resp 24 BP (!) 191/80 SpO2 96 % O2 Flow Rate (L/min) 2 L/min O2 Device Nasal cannula Pain Assessment Pain Assessment Scale 0-10 Pain Score Zero Patient's Stated Comfort Goal No pain Hemodialysis Access Arteriovenous fistula Left Forearm Placement Date/Time: 04/15/24426 Placed by External Staff?: Yes Access Type: Arteriovenous fistula Orientation: Left Access Location: Forearm Site Assessment Clean;Dry;Intact Status Deaccessed Catheter Exit Site Clear Type of Dressing Gauze During Hemodialysis Assessment Hemodialysis Status Completed Ultrafiltration Status Completed Post-Hemodialysis Assessment Total Blood Volume Processed 73.7 mL Duration of Treatment (minutes) 210 min Hemodialysis UF Net Intake (mL) 500 mL Hemodialysis UF Net Output (mL) 2000 mL Hemodialysis UF Gross (mL) 2500 mL * Mundo Díaz MD - 06/26/2025 3:25 PM EDT Subjective Mar Waldron is a 55 y.o. female on hospital day 3. Hgb 7.2 after PRBCs Review of Systems As above Objective Vitals: Temp: [97.6 ??F (36.4 ??C)-99.1 ??F (37.3 ??C)] 97.6 ??F (36.4 ??C) Pulse: [49-125] 56 Resp: [18] 18 BP: (119-170)/(24-100) 157/64 Intake/Output: No intake or output data in the 24 hours ending 06/26/25 1525 Physical exam: General: Alert and interactive, in mild distress. Eyes: Conjunctiva appropriate, Sclera white HENT: Normocephalic, adequate hearing, moist oral mucosa Lungs: Increased work of breathing, diminished breath sounds bilateral bases Heart: Tachycardic Abdomen: Soft, non-tender, non-distended, active bowel sounds Neurologic: Awake, alert and oriented X 3, sensory intact, no focal deficits Psychiatric: Cooperative, appropriate mood and affect Labs: Recent Labs Lab(s) Units 06/26/25 1056 06/26/25 0811 06/26/25 0509 06/26/25 0118 06/25/25 2021 06/25/25 1046 06/25/25 1026 06/25/25 0746 06/25/25 0459 06/24/25 2122 06/24/25 1213 06/24/25 0633 06/24/25 0457 06/23/25 2327 06/23/252025 WBC K/ L -- 4.6 -- 4.0 -- -- -- 4.1 -- 4.8 -- -- < > -- 5.3 HGB GM/DL -- 7.2* -- 7.1* 7.5* -- -- 6.4* -- 7.1* -- -- < > -- 7.7* HCT % -- 25.1* -- 25.3* 26.3* -- -- 22.6* -- 24.5* -- -- < > -- 27.9* PLT K/CU MM -- 59* -- 62* -- -- -- 60* -- 67* -- -- < > -- 71* PROTIME seconds -- -- -- -- -- -- 12.6* -- -- 12.4* -- -- -- 11.4 -- INR -- -- -- -- -- -- 1.15* -- -- 1.13* -- -- -- 1.03 -- MG mg/dL -- -- -- 1.7 -- -- -- -- -- -- -- -- -- -- -- NA meq/L -- -- -- 139 -- -- -- -- -- -- -- 142 -- -- 141 K meq/L -- -- -- 4.2 -- -- -- -- -- -- -- 4.4 -- -- 4.2 CL meq/L -- -- -- 101 -- -- -- -- -- -- -- 101 -- -- 101 CO2 meq/L -- -- -- 24 -- -- -- -- -- -- -- 25 -- -- 24 BUN mg/dL -- -- -- 42.1* -- -- -- -- -- -- -- 39.6* -- -- 38.1* CREATININE mg/dL -- -- -- 2.76* -- -- -- -- -- -- -- 2.74* -- -- 2.72* EGFR mL/min/1.73m2 -- -- -- 20* -- -- -- -- -- -- -- 20* -- -- 20* GLUCOSE mg/dL 143* -- 147* 166* -- < > -- -- < > -- < > 108* < > -- 103* CALCIUM mg/dL -- -- -- 7.8* -- -- -- -- -- -- -- 8.7 -- -- 8.4 PHOS mg/dL -- -- -- 5.1* -- -- -- -- -- -- -- -- -- -- -- ALKPHOS U/L -- -- -- 199* -- -- -- -- -- -- -- 247* -- -- 228* BILITOT mg/dL -- -- -- 0.6 -- -- -- -- -- -- -- 0.7 -- -- 0.7 PROT g/dL -- -- -- 5.8* -- -- -- -- -- -- -- 7.3 -- -- 6.7 ALT U/L -- -- -- 7 -- -- -- -- -- -- -- 13 -- -- 12 AST U/L -- -- -- 28 -- -- -- -- -- -- -- 38* -- -- 32 < > = values in this interval not displayed. Results for orders placed or performed during the hospital encounter of 06/23/25 (from the past 24 hours) Glucose, Nova Meter Status: None Collection Time: 06/25/25 4:03 PM Result Value Ref Range POC-GLUCOSE 89 70 - 110 mg/dL B[employer] Tester [id number] PTT Heparin Protocol Status: Abnormal Collection Time: 06/25/25 6:21 PM Result Value Ref Range PTT Heparin 44.6 (L) 45 - 65 seconds Glucose, Nova Meter Status: Abnormal Collection Time: 06/25/25 7:08 PM Result Value Ref Range POC-GLUCOSE 143 (H) 70 - 110 mg/dL [employer] Tester [id number] Hemoglobin and hematocrit Status: Abnormal Collection Time: 06/25/25 8:21 PM Result Value Ref Range Hemoglobin 7.5 (L) 11.2 - 15.7 GM/DL Hematocrit 26.3 (L) 34.1 - 44.9 % PTT Heparin Protocol Status: Abnormal Collection Time: 06/26/25 1:17 AM Result Value Ref Range PTT Heparin 29.9 (L) 45 - 65 seconds CBC with automated diff Status: Abnormal Collection Time: 06/26/25 1:18 AM Result Value Ref Range WBC 4.0 4.0 - 10.0 K/??L RBC 2.61 (L) 3.93 - 5.22 M/??L Hemoglobin 7.1 (L) 11.2 - 15.7 GM/DL Hematocrit 25.3 (L) 34.1 - 44.9 % MCV 97 (H) 79 - 95 fL MCH 27.2 25.6 - 32.2 pg MCHC 28.1 (L) 32.2 - 35.5 GM/DL RDW 19.9 (H) 11.7 - 14.4 % Platelets 62 (L) 140 - 375 K/CU MM MPV 12.7 (H) 9.4 - 12.3 fL % Neutros 63 34 - 71 % % Lymphs 25 19 - 52 % % Monos 8 5 - 13 % % Eos 3 1 - 6 % % Baso 1 0 - 1 % NRBC Absolute <0.01 0 - 0.012 K/ul # Neutros 2.51 1.56 - 6.13 K/??L # Lymphs 1.01 (L) 1.18 - 3.74 K/??L # Monos 0.31 0.24 - 0.86 K/??L # Eos 0.12 0.04 - 0.36 K/??L # Baso 0.04 0.01 - 0.08 K/??L Immature Granulocytes-Relative 0.50 (H) 0.01 - 0.43 % # IG <0.03 0.00 - 0.03 K/uL Comprehensive metabolic panel Status: Abnormal Collection Time: 06/26/25 1:18 AM Result Value Ref Range Sodium 139 136 - 145 meq/L Potassium 4.2 3.4 - 5.1 meq/L Chloride 101 98 - 112 meq/L CO2 24 22 - 29 meq/L Calcium 7.8 (L) 8.4 - 10.2 mg/dL Glucose 166 (H) 74 - 100 mg/dL BUN 42.1 (H) 9.8 - 20.1 mg/dL Creatinine 2.76 (H) 0.57 - 1.11 mg/dL BUN/Creatinine 15 8 - 20 eGFR (mL/min/1.73m2) 20 (L) >=60 mL/min/1.73m2 Albumin 2.3 (L) 3.5 - 5.0 g/dL Alkaline Phosphatase 199 (H) 40 - 150 U/L ALT 7 <=34 U/L AST 28 11 - 34 U/L Total Bilirubin 0.6 0.2 - 1.2 mg/dL Protein, Total 5.8 (L) 6.4 - 8.3 g/dL Globulin 3.5 2.5 - 4.1 g/dL Anion Gap 18 (H) 4 - 12 A/G Ratio 0.7 0.7 - 1.9 Osmolality Calc 291.8 mOsm/kg Magnesium Status: Normal Collection Time: 06/26/25 1:18 AM Result Value Ref Range Magnesium 1.7 1.6 - 2.6 mg/dL Phosphorus Status: Abnormal Collection Time: 06/26/25 1:18 AM Result Value Ref Range Phosphorus 5.1 (H) 2.5 - 4.5 mg/dL CBC Scan Status: Abnormal Collection Time: 06/26/25 1:18 AM Result Value Ref Range Platelet Estimate Decreased (A) Adequate RBC Morphology abnormal (A) Normal Anisocytosis 1+ Hypochromia 2+ Elliptocytes 1+ Glucose, Nova Meter Status: Abnormal Collection Time: 06/26/25 5:09 AM Result Value Ref Range POC-GLUCOSE 147 (H) 70 - 110 mg/dL [employer] Tester [id number] PTT Heparin Protocol Status: Abnormal Collection Time: 06/26/25 8:11 AM Result Value Ref Range PTT Heparin 30.5 (L) 45 - 65 seconds CBC with automated diff Status: Abnormal Collection Time: 06/26/25 8:11 AM Result Value Ref Range WBC 4.6 4.0 - 10.0 K/??L RBC 2.63 (L) 3.93 - 5.22 M/??L Hemoglobin 7.2 (L) 11.2 - 15.7 GM/DL Hematocrit 25.1 (L) 34.1 - 44.9 % MCV 95 79 - 95 fL MCH 27.4 25.6 - 32.2 pg MCHC 28.7 (L) 32.2 - 35.5 GM/DL RDW 19.7 (H) 11.7 - 14.4 % Platelets 59 (L) 140 - 375 K/CU MM MPV 12.5 (H) 9.4 - 12.3 fL % Neutros 66 34 - 71 % % Lymphs 21 19 - 52 % % Monos 9 5 - 13 % % Eos 4 1 - 6 % % Baso 1 0 - 1 % NRBC Absolute <0.01 0 - 0.012 K/ul # Neutros 3.02 1.56 - 6.13 K/??L # Lymphs 0.98 (L) 1.18 - 3.74 K/??L # Monos 0.39 0.24 - 0.86 K/??L # Eos 0.16 0.04 - 0.36 K/??L # Baso 0.03 0.01 - 0.08 K/??L Immature Granulocytes-Relative 0.40 0.01 - 0.43 % # IG <0.03 0.00 - 0.03 K/uL CBC Scan Status: Abnormal Collection Time: 06/26/25 8:11 AM Result Value Ref Range Platelet Estimate Decreased (A) Adequate RBC Morphology abnormal (A) Normal Anisocytosis 1+ Hypochromia 2+ Polychromasia 1+ Ovalocytes 1+ Tear Drop Cells Elliptocytes 1+ Poikilocytes 1+ Glucose, Nova Meter Status: Abnormal Collection Time: 06/26/25 10:56 AM Result Value Ref Range POC-GLUCOSE 143 (H) 70 - 110 mg/dL [employer] Tester [id number] Radiology: XR chest 2 views Final Result No pneumothorax post thoracentesis. Pulmonary vascular congestion with right lower lobe consolidation and moderate right pleural effusion. Images reviewed, interpreted, and dictated by Dr. Nas Rebolledo. Transcribed by Kalyan Wisdom PA-C US THORACENTESIS LT Final Result Technically successful sonographic-guided left thoracentesis with tube insertion as above. Images reviewed, interpreted, and dictated by Dr. Nas Rebolledo. Transcribed by Kalyan Wisdom PA-C ECHO COMPLETE (DOPPLER / COLOR) W OR WO CONTRAST Final Result XR chest AP portable Final Result Impression: Probable acute pulmonary edema pattern Authenticated and Medications: Scheduled Meds: acetaZOLAMIDE 250 mg oral BID 250 mg at 06/26/25816 aspirin 81 mg oral Daily 81 mg at 06/26/25816 atorvastatin 40 mg oral Every Night 40 mg at 06/25/252121 budesonide 0.5 mg nebulization 2 times daily 0.5 mg at 06/23/252044 carvediloL 12.5 mg oral BID w/breakfast & dinner 12.5 mg at 06/26/25816 doxazosin 2 mg oral BID 2 mg at 06/26/25816 hydrALAZINE 20 mg intravenous TID 20 mg at 06/25/25 1713 hydrALAZINE 75 mg oral 4x Daily 75 mg at 06/25/25 2121 insulin lispro 0-12 Units subcutaneous 4x Daily AC 2 Units at 06/26/25 0632 isosorbide mononitrate 120 mg oral Daily 120 mg at 06/26/25 0817 levothyroxine 88 mcg oral QAM (0600) 88 mcg at 06/26/25 0606 pantoprazole 40 mg oral Daily 40 mg at 06/26/25 08 Continuous Infusions: Current Facility-Administered Medications Medication Dose Route Frequency Provider Last Rate Last Admin acetaminophen (TYLENOL) tablet 1,000 mg 1,000 mg oral Q6H PRN Dajuan Banuelos MD acetaZOLAMIDE (DIAMOX) tablet 250 mg 250 mg oral BID Dajuan Banuelos MD 250 mg at 06/26/25816 albumin human 25 % IV 25 g 25 g intravenous PRN Blaine Moreno MD aspirin EC tablet 81 mg 81 mg oral Daily Vlad Waters PA-C 81 mg at 06/26/25 08 atorvastatin (LIPITOR) tablet 40 mg 40 mg oral Every Night Vlad Waters PA-C 40 mg at 06/25/252121 budesonide (PULMICORT) nebulizer suspension 0.5 mg 0.5 mg nebulization 2 times daily Vlad Waters PA-C 0.5 mg at 06/23/252044 carvediloL (COREG) tablet 12.5 mg 12.5 mg oral BID w/breakfast & dinner Vlad Waters PA-C 12.5mg at 06/26/25 08 cloNIDine (CATAPRES) tablet 0.1 mg 0.1 mg oral Q8H PRN Vlad Waters PA-C 0.1 mg at 06/24/25 121 dextrose 50% (D50W) injection 25 g 25 g intravenous Q15 Min PRN Vlad Waters PA-C diphenhydrAMINE (BENADRYL) capsule 25 mg 25 mg oral Every Night PRN Dajuan Banuelos MD doxazosin (CARDURA) tablet 2 mg 2 mg oral BID Dajuan Banuelos MD 2 mg at 06/26/25816 glucagon injection 1 mg 1 mg intraMUSCULAR Q15 Min PRN Vlad Waters PA-C glucose chew tab 16 g 16 g oral Q15 Min PRN Vlad Waters PA-C heparin bolus from bag 3,600 Units 60 Units/kg intravenous Q6H PRN Mundo Díaz MD Or heparin bolus from bag 2,400 Units 40 Units/kg intravenous Q6H PRN Mundo Díaz MD [Held by provider] heparin infusion 25,000 units in sodium chloride 0.45% (NS) 250 mL (100 units/mL) 2-24 Units/kg/hr intravenous Titrated Mundo Díaz MD Paused at 06/25/252112 hydrALAZINE (APRESOLINE) injection 20 mg 20 mg intravenous TID GARCIA Villagran 20 mg at 3 hydrALAZINE (APRESOLINE) tablet 75 mg 75 mg oral 4x Daily Dajuan Banuelos MD 75 mg at 06/25/252120 insulin lispro (HUMALOG, ADMELOG) injection 0-12 Units 0-12 Units subcutaneous 4x Daily AC Vlad Waters PA-C 2 Units at 06/26/25 0632 ipratropium-albuteroL (DUO-NEB) 0.5 mg-3 mg(2.5 mg base)/3 mL nebulizer solution 3 mL 3 mL nebulization Q6H PRN Vlad Waters PA-C isosorbide mononitrate (IMDUR) 24 hr tablet 120 mg 120 mg oral Daily Dajuan Banuelos MD 120 mg at 06/26/25 0817 levothyroxine (SYNTHROID) tablet 88 mcg 88 mcg oral QAM (06) GARCIA Villagran 88 mcg at 06/26/25 0606 LORazepam (ATIVAN) tablet 0.5 mg 0.5 mg oral Q8H PRN Dajuan Banuelos MD 0.5 mg at 06/26/25 1404 magnesium sulfate IVPB 2 g in sterile water 50 mL (premix) 2 g intravenous Daily PRN Vlad Waters PA-C magnesium sulfate IVPB 2 g in sterile water 50 mL (premix) 2 g intravenous BID PRN Vlad Waters PA-C melatonin tablet 5 mg 5 mg oral Every Night PRN Vlad Waters PA-C 5 mg at 06/24/252029 morphine injection 2 mg 2 mg intravenous Q4H PRN Vlad Waters PA-C naloxone (NARCAN) injection 0.2 mg 0.2 mg intravenous Q2 Min PRN Dajuan Banuelos MD nitroglycerin (NITROSTAT) tablet 0.4 mg 0.4 mg sublingual Q5 Min PRN Vlad Waters PA-C ondansetron (ZOFRAN-ODT) disintegrating tablet 4 mg 4 mg oral Q8H PRN Vlad Waters PA-C Or ondansetron (ZOFRAN) injection 4 mg 4 mg intravenous Q8H PRN Vlad Waters PA-C oxyCODONE (ROXICODONE) immediate release tablet 10 mg 10 mg oral Q4H PRN Vlad Waters PA-C 10 mg at 06/26/25 0936 pantoprazole (PROTONIX) EC tablet 40 mg 40 mg oral Daily Vlad Waters PA-C 40 mg at 06/26/25 0817 sodium chloride 0.9% (NS) bolus 250 mL intravenous Daily PRN Blaine Moreno MD sodium chloride 0.9% (NS) bolus 250 mL intravenous Daily PRN Blaine Moreno MD sodium chloride flush 10 mL 10 mL intravenous PRN Dajuan Banuelos MD PRN Meds: @MEDSPRN@ Assessment and Plan NSTEMI Severe anemia History of CAD prior stenting. Likely related to ESRD Thrombocytopenia>>>chronic -Heparin infusion>>> Held - Packed RBCs to keep hemoglobin above 7.>>> 6.4> 7.2 today. - Patient is currently on aspirin atorvastatin Coreg Imdur - Cont Protonix twice daily. Acute diastolic heart failure exacerbation Complicated by ESRD EF 55% - Coreg, treat NSTEMI, ultrafiltration, treat anemia, - left thoracentesis done 06/24/2025 >>>100mL removed. - Oxygen low-salt diet - Continue Tuesday dialysis Diabetes sliding scale insulin Thrombocytopenia/anemia - Unexplained - ESRD, liver disease, bone marrow failure COPD continue as needed inhalers. Hypothyroidism continue levothyroxine. Renal mass concerning for malignancy. Follow-up urology. Protein calorie malnutrition present on admission Boost twice daily Diet: Orders Placed This Encounter Procedures Heart Healthy Diet DVT ppx: IV heparin PUD ppx: Code Status: Full Code MDM: Hemoglobin 6.4> 1 PRBC > 7.2 , thrombocytopenia 60K >> hold hep gtt , white count normal INR is 1.1, electrolytes okay patient has NSTEMI high risk need of blood loss transfusing packed RBCs May hold heparin if platelets drops below 50,000. High morbidity mortality patient has ESRD and CHF NSTEMI thrombocytopenia severe anemia requiring blood transfusion Patient follows up with she was recently discharged. Discharge Planning: Unable to determine. * Arlene Oneil RN - 06/26/2025 1:58 PM EDT 06/26/25 1347 Vitals Temp 97.6 ??F (36.4 ??C) Pulse 56 Resp 18 BP (!) 157/64 SpO2 98 % O2 Flow Rate (L/min) 2 L/min O2 Device Nasal cannula Pain Assessment Pain Assessment Scale 0-10 Pain Score Zero Patient's Stated Comfort Goal No pain Pre-Hemodialysis Assessment Patient Status Arrived Transfer Mode Bed HBs AG Date Last Drawn 06/24/25 HBs AG result Negative During Hemodialysis Assessment Hemodialysis Status Initiated Ultrafiltration Status Initiated Prime Volume 250 Blood Flow Rate (mL/min) 400 mL/min Ultrafiltration Rate (mL/hr) 714 mL/hr Venous Pressure (mmHg) 166 Transmembrane Pressure (mmHg) 6 mmHg Arterial Pressure (mmHg) -142 UF Goal 2000 ml UF Removed (mL) 0 ml Dialysate Flow Rate (mL/min) 600 ml/min Remaining Time (min) 210 mins UF State On Crit Line No Arteriovenous Lines Secure Yes * Blaine Moreno MD - 06/26/2025 10:41 AM EDT Subjective History of Present Illness: Mar Waldron is a 55 y.o. female with a history of arthritis, CHF,ESRD, COPD, hypertension, and hypothyroidism presented to [facility] in [place], [place] for further evaluation and management of shortness of breath. Patient states she missed dialysis on Tuesday due to a family member passing away. Patient sought evaluation at [facility] where patient was found to be in acute CHF exacerbation, NSTEMI, and with moderate pleural effusion. Patient was subsequently transferred to [facility] for nephrology coverage and higher level of care. Patient was admitted for treatment of acute CHF exacerbation, NSTEMI, and pleural effusion, with consultation to cardiology and nephrology. Was seen and examined ,was dialyzed yesterday Review of Systems Constitutional: Positive for fatigue. HENT: Negative. Eyes: Negative. Respiratory: Positive for shortness of breath. Gastrointestinal: Negative. Skin: Negative. Neurological: Positive for weakness. Objective Last Recorded Vitals Blood pressure (!) 186/102, pulse 58, temperature 97.8 ??F (36.6 ??C), resp. rate 16, height 1.702 m (5' 7.01 ), weight 60 kg (132 lb 4.4 oz), SpO2 92%. Physical Exam Constitutional: Appearance: She is ill-appearing. HENT: Head: Normocephalic and atraumatic. Cardiovascular: Rate and Rhythm: Normal rate and regular rhythm. Pulmonary: Comments: Decreased BS bilaterally Abdominal: General: Abdomen is flat. Palpations: Abdomen is soft. Skin: General: Skin is warm and dry. Labs: Results for orders placed or performed during the hospital encounter of 06/23/25 (from the past 24 hours) Glucose, Nova Meter Status: Abnormal Collection Time: 06/26/25 10:56 AM Result Value Ref Range POC-GLUCOSE 143 (H) 70 - 110 mg/dL Bellows Tester [id number] PTT Heparin Protocol Status: Abnormal Collection Time: 06/26/25 6:24 PM Result Value Ref Range PTT Heparin 29.3 (L) 45 - 65 seconds Glucose, Nova Meter Status: Abnormal Collection Time: 06/26/25 8:12 PM Result Value Ref Range POC-GLUCOSE 117 (H) 70 - 110 mg/dL B[employer]s Tester [id number] PTT Heparin Protocol Status: Abnormal Collection Time: 06/26/25 11:57 PM Result Value Ref Range PTT Heparin 30.2 (L) 45 - 65 seconds CBC with automated diff Status: Abnormal Collection Time: 06/27/25 3:06 AM Result Value Ref Range WBC 3.8 (L) 4.0 - 10.0 K/??L RBC 2.51 (L) 3.93 - 5.22 M/??L Hemoglobin 6.8 (L) 11.2 - 15.7 GM/DL Hematocrit 24.1 (L) 34.1 - 44.9 % MCV 96 (H) 79 - 95 fL MCH 27.1 25.6 - 32.2 pg MCHC 28.2 (L) 32.2 - 35.5 GM/DL RDW 19.5 (H) 11.7 - 14.4 % Platelets 50 (L) 140 - 375 K/CU MM MPV 11.8 9.4 - 12.3 fL Nucleated Red Blood Cell 0.0 0 - 0.2 % % Neutros 59 34 - 71 % % Lymphs 26 19 - 52 % % Monos 9 5 - 13 % % Eos 4 1 - 6 % % Baso 1 0 - 1 % NRBC Absolute <0.01 0 - 0.012 K/ul # Neutros 2.24 1.56 - 6.13 K/??L # Lymphs 0.99 (L) 1.18 - 3.74 K/??L # Monos 0.35 0.24 - 0.86 K/??L # Eos 0.14 0.04 - 0.36 K/??L # Baso 0.05 0.01 - 0.08 K/??L Immature Granulocytes-Relative 0.50 (H) 0.01 - 0.43 % # IG <0.03 0.00 - 0.03 K/uL Comprehensive metabolic panel Status: Abnormal Collection Time: 06/27/25 3:06 AM Result Value Ref Range Sodium 137 136 - 145 meq/L Potassium 3.8 3.4 - 5.1 meq/L Chloride 101 98 - 112 meq/L CO2 25 22 - 29 meq/L Calcium 7.8 (L) 8.4 - 10.2 mg/dL Glucose 198 (H) 74 - 100 mg/dL BUN 27.3 (H) 9.8 - 20.1 mg/dL Creatinine 1.85 (H) 0.57 - 1.11 mg/dL BUN/Creatinine 15 8 - 20 eGFR (mL/min/1.73m2) 32 (L) >=60 mL/min/1.73m2 Albumin 2.4 (L) 3.5 - 5.0 g/dL Alkaline Phosphatase 194 (H) 40 - 150 U/L ALT <7 <=34 U/L AST 20 11 - 34 U/L Total Bilirubin 0.6 0.2 - 1.2 mg/dL Protein, Total 5.9 (L) 6.4 - 8.3 g/dL Globulin 3.5 2.5 - 4.1 g/dL Anion Gap 15 (H) 4 - 12 A/G Ratio 0.7 0.7 - 1.9 Osmolality Calc 284.6 mOsm/kg Magnesium Status: Normal Collection Time: 06/27/25 3:06 AM Result Value Ref Range Magnesium 1.6 1.6 - 2.6 mg/dL CBC Scan Status: Abnormal Collection Time: 06/27/25 3:06 AM Result Value Ref Range Platelet Estimate Decreased (A) Adequate RBC Morphology abnormal (A) Normal Anisocytosis 2+ Hypochromia 1+ Polychromasia 1+ Macrocytes 1+ Ovalocytes 1+ Elliptocytes 1+ Glucose, Nova Meter Status: Abnormal Collection Time: 06/27/25 5:14 AM Result Value Ref Range POC-GLUCOSE 193 (H) 70 - 110 mg/dL Bellows Tester [id number] Prepare RBC: 1 Units Status: None (Preliminary result) Collection Time: 06/27/25 9:47 AM Result Value Ref Range Product Identification Red Blood Cells Product Code [id number] Status Information READY Unit Number [id number] Blood Type 9500 Cross Match Results Compatible ECHO COMPLETE (DOPPLER / COLOR) W OR WO CONTRAST TRANSTHORACIC ECHOCARDIOGRAPHY REPORT Demographics Patient Name: VIET VORA : 1970 Age: 55 year(s) Corporate ID Number: [id number] Gender Female Social Work Associate: Familia Garcia, Height: 67 inches [facility] Referring Physician: ADEBAYO TORRES Weight: 132 pounds Interpreting MINDY MCKEON MD BMI: 20.67 kg/m^2 Physician: Date of Service: 06/24/2025 Blood Pressure: 154/92 mmHg Room Number: 566 Type of Study: TTE procedure: ECHO COMPLETE (DOPPLER / COLOR) W OR WO CONTRAST. Patient Status: ALICE Study Location: PortableTechnical Quality: Adequate visualization History/Tech Notes: Indication: shortness of breath R06.02, CHF Impression: ######################################## Definity ultrasound enhancing agent administered for endocardial border definition. Normal sized left ventricle. Mild left ventricular hypertrophy. Visually estimated ejection fraction 20% +/- 5%. Severe left ventricular systolic dysfunction with abnormal systolic strain pattern. Restrictive filling pattern consistent with severely increased LV filling pressure (Grade III Diastolic dysfunction). Moderate (2+) mitral regurgitation. PISA ERO: 0.3 cm2. Moderate (2+) tricuspid regurgitation. Severe pulmonary hypertension. RVSP 90 mmHg. Moderate pulmonic regurgitation (2+). Severely abnormal left atrial volume index 58 ml/m^2. Severely dilated right ventricle. Abnormal TAPSE; abnormal right ventricular function. Elevated central venous pressure >15mmHg. ######################################## Measurements Summary: LVEDd: 4.92 cm LVESd: 4.13 cm IVSEd: 1.2 cm AO Root:2.9 cm LVPWd: 1.12 cm Contractility Score Global Left Ventricular Hypokinesis was noted. LV regional wall motion: (0-Not visualized 1-Normal 2-Hypokinesis 3-Akinesis 4-Dyskinesis 5-Aneurysm) Left Ventricle Peak E-wave: 1.1 Peak A-wave: 0.43 m/s E/A ratio: 2.58 m/s Volume [id number] LV length: 8.52 cm ml Volume [id number] ml LVOT diameter: 1.7 cm Normal sized left ventricle. Mild left ventricular hypertrophy. Visually estimated ejection fraction 20% +/- 5%. Severe left ventricular systolic dysfunction with abnormal systolic strain pattern. Restrictive filling pattern consistent with severely increased LV filling pressure (Grade III Diastolic dysfunction). No left ventricular masses or thrombi. Right Ventricle Diastolic dimension: 4.96 RV systolic pressure: 90.15 mmHg cm Severely dilated right ventricle. Abnormal TAPSE; abnormal right ventricular function. Left Atrium LA dimension: 4.6 cm LA volume:98.51 ml LA/Aorta: 1.59 Severely abnormal left atrial volume index 58 ml/m^2. Intact atrial septum. No atrial mass or thrombus. Right Atrium Normal sized right atrium. Intact atrial septum. No atrial mass or thrombus. Mitral Valve Deceleration time: Area PHT: 3.32 cm^2 Mean velocity: 121.63 msec P1/2t: 66.19 msec 0.79 m/s MR velocity: 5.13 Mean gradient: m/s 2.88 mmHg Area (continuity): Peak gradient: 1.35 cm^2 8.04 mmHg MR VTI: 207.26 cm Thickened mitral valve leaflets. Mitral valve annulus calcification. Moderate (2+) mitral regurgitation. PISA ERO: 0.3 cm2. No mitral stenosis. No masses or vegetations seen. Aortic Valve AI P1/2t: 406.25 msec Peak velocity: 1.17 m/s LVOT VTI: 20.6 cm Peak gradient: 5.44 mmHg Deceleration time: 1400.88 msec Three cusped aortic valve. Thickened free edges of the aortic valve leaflets. Nodular calcification of LCC noted. Slice artifact of LCC calcification noted in PLAX view. Mild aortic regurgitation. No aortic stenosis. No masses or vegetations seen. Tricuspid Valve TR velocity: 4.33 m/s TR gradient: 75.56059 mmHg Estimated RAP: 15 mmHg RVSP: 90.15 mmHg Structurally normal tricuspid valve. Moderate (2+) tricuspid regurgitation. Severe pulmonary hypertension. RVSP 90 mmHg. No tricuspid stenosis. No masses or vegetations seen. Pulmonic Valve Acceleration time: 110.37 msec PASP: 90.15 mmHg Structurally normal pulmonic valve. Moderate pulmonic regurgitation (2+). No pulmonic stenosis. No masses or vegetations seen. Great Vessels Aorta Aortic Root: 2.9 cm LVOT Diameter: 1.7 cm Visualized thoracic aorta is normal. Normal aortic root. No evidence of dissection. Dilated IVC with no inspiratory collapse. Elevated central venous pressure >15mmHg. Pericardium / Pleura No pericardial effusion. Other Definity ultrasound enhancing agent administered for endocardial border definition. XR chest 2 views Narrative: TWO-VIEW CHEST 06/24/2025 2:10 PM HISTORY: Pleural effusion. Postthoracentesis. COMPARISON: June 23, 2025 FINDINGS: The cardiac silhouette is mildly enlarged. The aortic contours are normal. The mediastinal and hilar structures are unremarkable. There is pulmonary vascular congestion with a moderate right pleural effusion. There is right lower lobe consolidation. There is no pneumothorax. Status post median sternotomy. Impression: No pneumothorax post thoracentesis. Pulmonary vascular congestion with right lower lobe consolidation and moderate right pleural effusion. Images reviewed, interpreted, and dictated by Dr. Nas Rebolledo. Transcribed by Kalyan Wisdom PA-C US THORACENTESIS LT Narrative: ULTRASOUND-GUIDED THORACENTESIS WITH TUBE INSERTION HISTORY: Left pleural effusion. ATTENDING RADIOLOGIST: Dr. Rebolledo. PHYSICIAN MEDICAL LEGAL INVESTIGATOR: Kalyan Wisdom PA-C. TECHNIQUE: Informed consent was obtained from the patient. The indications and complications were discussed prior to beginning the procedure. This included, but was not limited to, pain, bleeding, infection, and pneumothorax requiring chest tube placement. The left back was then prepped and draped in sterile fashion. 1% lidocaine was used for local anesthesia. Utilizing sonographic guidance, a standard thoracentesis needle and sheath were inserted into the pleural space. The needle was removed and the catheter was left in the pleural space. Approximately 300 mL of clear yellow pleural fluid was successfully removed without complication. The tube was subsequently removed from the pleural space. The patient tolerated the procedure well. Sample of the fluid was sent to lab for preordered studies. Impression: Technically successful sonographic-guided left thoracentesis with tube insertion as above. Images reviewed, interpreted, and dictated by Dr. Nas Rebolledo. Transcribed by Kalyan Wisdom PA-C Assessment 1. Volume overload/moderate to large pleural effusions 2. End-stage renal disease on dialysis Tuesday 3. Pancytopenia/underlying liver cirrhosis 4. Acute exacerbation of CHF due to diastolic dysfunction 5. COPD 6. Severe protein energy malnourishment 7. History of CAD prior stenting 8.NSTEMI. Plan -Evaluate on daily basis to volume status, otherwise we will resume Tuesday schedule,Was seen on HD -Patient has pancytopenia likely underlying liver cirrhosis/hematology malignancy, extra managementas per primary -Fluid restriction 1.5 L 24-hour with 2 g of salt restriction 24-hour with dietitian consult -Avoid nephrotoxins -Strict intake and output -Bladder scan as needed -Keep MAP above 65 and hemoglobin above 7 -Renally dose medications and antibiotics -Monitor kidney function electrolytes on daily basis -Would recommend palliative consultation/hospice given the several comorbidities of this patient and poor functional status and poor quality of life with very high mortality given the above comorbidities -Thanks for consultation [facility] [address] [place], [place], [address] Phone #[phone] Fax #[phone] High complex case * Mindy Mckeon MD - 06/26/2025 6:45 AM EDT [facility] Basic Information: Name Mar Waldron, 1970, 55 y.o., female PCP: Osmani Becker MD Admit Date 06/23/2025 Patient Location [id number] Chief Complaint/Consult reason: Short of breath short of breath Consult for elevated troponin Subjective: Still short of air, not feeling well, ill-appearing, getting dialysis today Health Status: Allergies Basaglar Kwikpen U-100 Insulin [Insulin Glargine] and Lisinopril Home Medications: Prior to Admission medications Medication Sig Start Date End Date Taking? Authorizing Provider acetaZOLAMIDE (DIAMOX) 250 MG tablet Take 1 tablet (250 mg total) by mouth 2 (two) times daily. Historical Provider, aspirin 325 MG tablet Take 1 tablet (325 mg total) by mouth daily. Historical Provider, carvediloL (COREG) 25 MG tablet Take 1 tablet (25 mg total) by mouth 2 (two) times daily with breakfast and dinner. Historical Provider, cloNIDine HCL (CATAPRES) 0.1 MG tablet Take 1 tablet (0.1 mg total) by mouth 2 (two) times daily asneeded (sys greater than 180). Historical Provider, clopidogreL (PLAVIX) 75 mg tablet Take 1 tablet (75 mg total) by mouth daily. Historical Provider, doxazosin (CARDURA) 2 MG tablet Take 1 tablet (2 mg total) by mouth 2 (two) times daily. HistoricalProviderMD ezetimibe (ZETIA) 10 mg tablet Take 1 tablet (10 mg total) by mouth nightly. Historical Provider, hydrALAZINE (APRESOLINE) 50 MG tablet Take 1.5 tablets (75 mg total) by mouth 4 (four) times daily.Historical Provider, isosorbide mononitrate (IMDUR) 60 MG 24 hr tablet Take 2 tablets (120 mg total) by mouth daily. Historical Provider, levothyroxine (SYNTHROID, LEVOTHROID) 75 MCG tablet Take 1 tablet (75 mcg total) by mouth Every morning on an empty stomach. Historical Provider, oxyCODONE-acetaminophen (PERCOCET) 10-325 mg per tablet Take 1 tablet by mouth every 6 (six) hours as needed for pain. Historical Provider, pantoprazole (PROTONIX) 20 MG tablet Take 1 tablet (20 mg total) by mouth daily. Historical Provider, valsartan (DIOVAN) 160 MG tablet Take 1 tablet (160 mg total) by mouth 2 (two) times daily. Historical Provider, Past Medical History: Pt has a past medical history of Arthritis, Cancer (HCC), CHF (congestive heart failure) (HCC), Chronic kidney disease requiring chronic dialysis (HCC), COPD (chronic obstructive pulmonary disease) (HCC), Hypertension, Murmur, and Thyroid disease. Surgical History: Pt has a past surgical history that includes triple bypass (2012); left arm fistula (Left); Eye surgery; Cataract extraction; Gallbladder surgery; Appendectomy; Hysterectomy; and Cardiac surgery. Tobacco History Pt reports that she has been smoking cigarettes. She has never used smokeless tobacco. Alcohol History Pt reports no history of alcohol use. Drug Use History Pt reports current drug use. Drug: Marijuana. Family History family history is not on file. OBJECTIVE Vital ranges lat 24 hours Temp: [97.2 ??F (36.2 ??C)-99.1 ??F (37.3 ??C)] 98.6 ??F (37 ??C) Pulse: [47-125] 73 Resp: [18] 18 BP: (113-170)/(24-121) 127/100 Intake and Output 24 hours: Intake/Output Summary (Last 24 hours) at 06/26/2025 0645 Last data filed at 06/25/2025 1400 Gross per 24 hour Intake 290 ml Output -- Net 290 ml Net I&O this admission: Net IO Since Admission: -961 mL [06/26/25 0645] PHYSICAL EXAMINATION General: Patient was alert and oriented, moderate distress, ill-appearing HEENT: atraumatic and normocephalic, no conjunctival injection, no icterus Neck: supple, no JVD,no bruit, no thyromegaly Chest/Resp: Bilateral crepitations Cardio: S1 and S2 normal, no murmurs, gallops or rubs. Abdomen/GI: The abdomen is soft without tenderness Extremities: + Skin: no rashes Neuro: no focal neurologic deficits grossly AOx3 Inpatient Medications Current Facility-Administered Medications Medication Dose Route Frequency Provider Last Rate Last Admin acetaminophen (TYLENOL) tablet 1,000 mg 1,000 mg oral Q6H PRN Dajuan Banuelos MD acetaZOLAMIDE (DIAMOX) tablet 250 mg 250 mg oral BID Dajuan Banuelos MD 250 mg at 06/25/252125 aspirin EC tablet 81 mg 81 mg oral Daily Vlad Waters PA-C 81 mg at 06/25/25 0846 atorvastatin (LIPITOR) tablet 40 mg 40 mg oral Every Night Vlad Waters PA-C 40 mg at 06/25/252121 budesonide (PULMICORT) nebulizer suspension 0.5 mg 0.5 mg nebulization 2 times daily Vlad Waters PA-C 0.5 mg at 06/23/252044 carvediloL (COREG) tablet 12.5 mg 12.5 mg oral BID w/breakfast & dinner Vlad Waters PA-C 12.5mg at 06/25/25 1713 cloNIDine (CATAPRES) tablet 0.1 mg 0.1 mg oral Q8H PRN Vlad Waters PA-C 0.1 mg at 06/24/25 1217 dextrose 50% (D50W) injection 25 g 25 g intravenous Q15 Min PRN Vlad Waters PA-C diphenhydrAMINE (BENADRYL) capsule 25 mg 25 mg oral Every Night PRN Dajuan Banuelos MD doxazosin (CARDURA) tablet 2 mg 2 mg oral BID Dajuan Banuelos MD 2 mg at 06/25/252121 glucagon injection 1 mg 1 mg intraMUSCULAR Q15 Min PRN Vlad Waters PA-C glucose chew tab 16 g 16 g oral Q15 Min PRN Vlad Waters PA-C heparin bolus from bag 3,600 Units 60 Units/kg intravenous Q6H PRN Mundo Díaz MD Or heparin bolus from bag 2,400 Units 40 Units/kg intravenous Q6H PRN Mundo Díaz MD [Held by provider] heparin infusion 25,000 units in sodium chloride 0.45% (NS) 250 mL (100 units/mL) 2-24 Units/kg/hr intravenous Titrated Mundo Díaz MD Paused at 06/25/252112 hydrALAZINE (APRESOLINE) injection 20 mg 20 mg intravenous TID GARCIA Villagran 20 mg at 3 hydrALAZINE (APRESOLINE) tablet 75 mg 75 mg oral 4x Daily Dajuan Bnauelos MD 75 mg at 06/25/252120 insulin lispro (HUMALOG, ADMELOG) injection 0-12 Units 0-12 Units subcutaneous 4x Daily AC Vlad Waters PA-C 2 Units at 06/26/25 0632 ipratropium-albuteroL (DUO-NEB) 0.5 mg-3 mg(2.5 mg base)/3 mL nebulizer solution 3 mL 3 mL nebulization Q6H PRN Vlad Waters PA-C isosorbide mononitrate (IMDUR) 24 hr tablet 120 mg 120 mg oral Daily Dajuan Banuelos MD 120 mg at 06/25/25 0845 levothyroxine (SYNTHROID) tablet 88 mcg 88 mcg oral QAM (0600) GARCIA Villagran 88 mcg at 06/26/25 0606 LORazepam (ATIVAN) tablet 0.5 mg 0.5 mg oral Q8H PRN Dajuan Banuelos MD 0.5 mg at 06/25/25 1119 magnesium sulfate IVPB 2 g in sterile water 50 mL (premix) 2 g intravenous Daily PRN Vlad Waters PA-C magnesium sulfate IVPB 2 g in sterile water 50 mL (premix) 2 g intravenous BID PRN Vlad Waters PA-C melatonin tablet 5 mg 5 mg oral Every Night PRN Vlad Waters PA-C 5 mg at 06/24/252029 morphine injection 2 mg 2 mg intravenous Q4H PRN Vlad Waters PA-C naloxone (NARCAN) injection 0.2 mg 0.2 mg intravenous Q2 Min PRN Dajuan Banuelos MD nitroglycerin (NITROSTAT) tablet 0.4 mg 0.4 mg sublingual Q5 Min PRN Vlad Waters PA-C ondansetron (ZOFRAN-ODT) disintegrating tablet 4 mg 4 mg oral Q8H PRN Vlad Waters PA-C Or ondansetron (ZOFRAN) injection 4 mg 4 mg intravenous Q8H PRN Vlad Waters PA-C oxyCODONE (ROXICODONE) immediate release tablet 10 mg 10 mg oral Q4H PRN Vlad Waters PA-C 10 mg at 06/25/25 1825 pantoprazole (PROTONIX) EC tablet 40 mg 40 mg oral Daily Vlad Waters PA-C 40 mg at 06/25/25 0845 sodium chloride 0.9% (NS) bolus 250 mL intravenous Daily PRN Blaine Moreno MD sodium chloride flush 10 mL 10 mL intravenous PRN Dajuan Banuelos MD Results Review: Labs: WBC Date Value Ref Range Status 06/26/2025 4.0 4.0 - 10.0 K/??L Final 06/25/2025 4.1 4.0 - 10.0 K/??L Final 06/24/2025 4.8 4.0 - 10.0 K/??L Final Hemoglobin Date Value Ref Range Status 06/26/2025 7.1 (L) 11.2 - 15.7 GM/DL Final 06/25/2025 7.5 (L) 11.2 - 15.7 GM/DL Final 06/25/2025 6.4 (LL) 11.2 - 15.7 GM/DL Final Platelets Date Value Ref Range Status 06/26/2025 62 (L) 140 - 375 K/CU MM Final 06/25/2025 60 (L) 140 - 375 K/CU MM Final 06/24/2025 67 (L) 140 - 375 K/CU MM Final Creatinine Date Value Ref Range Status 06/26/2025 2.76 (H) 0.57 - 1.11 mg/dL Final 06/24/2025 2.74 (H) 0.57 - 1.11 mg/dL Final 06/23/2025 2.72 (H) 0.57 - 1.11 mg/dL Final BUN Date Value Ref Range Status 06/26/2025 42.1 (H) 9.8 - 20.1 mg/dL Final 06/24/2025 39.6 (H) 9.8 - 20.1 mg/dL Final 06/23/2025 38.1 (H) 9.8 - 20.1 mg/dL Final Potassium Date Value Ref Range Status 06/26/2025 4.2 3.4 - 5.1 meq/L Final 06/24/2025 4.4 3.4 - 5.1 meq/L Final 06/23/2025 4.2 3.4 - 5.1 meq/L Final Sodium Date Value Ref Range Status 06/26/2025 139 136 - 145 meq/L Final 06/24/2025 142 136 - 145 meq/L Final 06/23/2025 141 136 - 145 meq/L Final Magnesium Date Value Ref Range Status 06/26/2025 1.7 1.6 - 2.6 mg/dL Final 06/16/2024 1.7 1.5 - 2.4 mg/dL Final 06/06/2024 1.8 1.5 - 2.4 mg/dL Final AST Date Value Ref Range Status 06/26/2025 28 11 - 34 U/L Final Comment: AST2 reagent used for testing does not contain P5P supplementation and therefore may miss AST elevations in patients with B6 deficiency. This population may be as high as 10% in the [place], with risk factors including malabsorption, drug interactions, and alcoholic hepatitis. ALT Date Value Ref Range Status 06/26/2025 7 <=34 U/L Final Comment: ALT2 reagent used for testing does not contain P5P supplementation and therefore may miss ALT elevations in patients with B6 deficiency. This population may be as high as 10% in the [place], with risk factors including malabsorption, drug interactions, and alcoholic hepatitis. Alkaline Phosphatase Date Value Ref Range Status 06/26/2025 199 (H) 40 - 150 U/L Final INR Date Value Ref Range Status 06/25/2025 1.15 (H) 0.80 - 1.10 Final Comment: Recommended therapeutic ranges using International Normalized Ratio (INR) are: INR RANGE 2.0 - 3.0 Routine oral anticoagulant therapy 2.5 - 3.5 Oral anticoagulant therapy for patients with thromboembolic events on standard doses of Coumadin and those with mechanical heart valves. Imaging: ECHO COMPLETE (DOPPLER / COLOR) W OR WO CONTRAST TRANSTHORACIC ECHOCARDIOGRAPHY REPORT Demographics Patient Name: VIET VORA : 1970 Age: 55 year(s) Corporate ID Number: [id number] Gender Female Social Work Associate: Familia Garcia, Height: 67 inches [facility] Referring Physician: ADEBAYO TORRES Weight: 132 karen MCKEON MD BMI: 20.67 kg/m^2 Physician: Date of Service: 06/24/2025 Blood Pressure: 154/92 mmHg Room Number: 566 Type of Study: TTE procedure: ECHO COMPLETE (DOPPLER / COLOR) W OR WO CONTRAST. Patient Status: ALICE Study Location: [facility] Quality: Adequate visualization History/Tech Notes: Indication: shortness of breath R06.02, CHF Impression: ######################################## Definity ultrasound enhancing agent administered for endocardial border definition. Normal sized left ventricle. Mild left ventricular hypertrophy. Visually estimated ejection fraction 20% +/- 5%. Severe left ventricular systolic dysfunction with abnormal systolic strain pattern. Restrictive filling pattern consistent with severely increased LV filling pressure (Grade III Diastolic dysfunction). Moderate (2+) mitral regurgitation. PISA ERO: 0.3 cm2. Moderate (2+) tricuspid regurgitation. Severe pulmonary hypertension. RVSP 90 mmHg. Moderate pulmonic regurgitation (2+). Severely abnormal left atrial volume index 58 ml/m^2. Severely dilated right ventricle. Abnormal TAPSE; abnormal right ventricular function. Elevated central venous pressure >15mmHg. ######################################## Measurements Summary: LVEDd: 4.92 cm LVESd: 4.13 cm IVSEd: 1.2 cm AO Root:2.9 cm LVPWd: 1.12 cm Contractility Score Global Left Ventricular Hypokinesis was noted. LV regional wall motion: (0-Not visualized 1-Normal 2-Hypokinesis 3-Akinesis 4-Dyskinesis 5-Aneurysm) Left Ventricle Peak E-wave: 1.1 Peak A-wave: 0.43 m/s E/A ratio: 2.58 m/s Volume [id number] LV length: 8.52 cm ml Volume adcapciq61.42 ml LVOT diameter: 1.7 cm Normal sized left ventricle. Mild left ventricular hypertrophy. Visually estimated ejection fraction 20% +/- 5%. Severe left ventricular systolic dysfunction with abnormal systolic strain pattern. Restrictive filling pattern consistent with severely increased LV filling pressure (Grade III Diastolic dysfunction). No left ventricular masses or thrombi. Right Ventricle Diastolic dimension: 4.96 RV systolic pressure: 90.15 mmHg cm Severely dilated right ventricle. Abnormal TAPSE; abnormal right ventricular function. Left Atrium LA dimension: 4.6 cm LA volume:98.51 ml LA/Aorta: 1.59 Severely abnormal left atrial volume index 58 ml/m^2. Intact atrial septum. No atrial mass or thrombus. Right Atrium Normal sized right atrium. Intact atrial septum. No atrial mass or thrombus. Mitral Valve Deceleration time: Area PHT: 3.32 cm^2 Mean velocity: 121.63 msec P1/2t: 66.19 msec 0.79 m/s MR velocity: 5.13 Mean gradient: m/s 2.88 mmHg Area (continuity): Peak gradient: 1.35 cm^2 8.04 mmHg MR VTI: 207.26 cm Thickened mitral valve leaflets. Mitral valve annulus calcification. Moderate (2+) mitral regurgitation. PISA ERO: 0.3 cm2. No mitral stenosis. No masses or vegetations seen. Aortic Valve AI P1/2t: 406.25 msec Peak velocity: 1.17 m/s LVOT VTI: 20.6 cm Peak gradient: 5.44 mmHg Deceleration time: 1400.88 msec Three cusped aortic valve. Thickened free edges of the aortic valve leaflets. Nodular calcification of LCC noted. Slice artifact of LCC calcification noted in PLAX view. Mild aortic regurgitation. No aortic stenosis. No masses or vegetations seen. Tricuspid Valve TR velocity: 4.33 m/s TR gradient: 75.71042 mmHg Estimated RAP: 15 mmHg RVSP: 90.15 mmHg Structurally normal tricuspid valve. Moderate (2+) tricuspid regurgitation. Severe pulmonary hypertension. RVSP 90 mmHg. No tricuspid stenosis. No masses or vegetations seen. Pulmonic Valve Acceleration time: 110.37 msec PASP: 90.15 mmHg Structurally normal pulmonic valve. Moderate pulmonic regurgitation (2+). No pulmonic stenosis. No masses or vegetations seen. Great Vessels Aorta Aortic Root: 2.9 cm LVOT Diameter: 1.7 cm Visualized thoracic aorta is normal. Normal aortic root. No evidence of dissection. Dilated IVC with no inspiratory collapse. Elevated central venous pressure >15mmHg. Pericardium / Pleura No pericardial effusion. Other Definity ultrasound enhancing agent administered for endocardial border definition. XR chest 2 views Narrative: TWO-VIEW CHEST 06/24/2025 2:10 PM HISTORY: Pleural effusion. Postthoracentesis. COMPARISON: June 23, 2025 FINDINGS: The cardiac silhouette is mildly enlarged. The aortic contours are normal. The mediastinal and hilar structures are unremarkable. There is pulmonary vascular congestion with a moderate right pleural effusion. There is right lower lobe consolidation. There is no pneumothorax. Status post median sternotomy. Impression: No pneumothorax post thoracentesis. Pulmonary vascular congestion with right lower lobe consolidation and moderate right pleural effusion. Images reviewed, interpreted, and dictated by Dr. Nas Rebolledo. Transcribed by Kalyan Wisdom PA-C US THORACENTESIS LT Narrative: ULTRASOUND-GUIDED THORACENTESIS WITH TUBE INSERTION HISTORY: Left pleural effusion. ATTENDING RADIOLOGIST: Dr. Rebolledo. PHYSICIAN MEDICAL LEGAL INVESTIGATOR: Kalyan Wisdom PA-C. TECHNIQUE: Informed consent was obtained from the patient. The indications and complications were discussed prior to beginning the procedure. This included, but was not limited to, pain, bleeding, infection, and pneumothorax requiring chest tube placement. The left back was then prepped and draped in sterile fashion. 1% lidocaine was used for local anesthesia. Utilizing sonographic guidance, a standard thoracentesis needle and sheath were inserted into the pleural space. The needle was removed and the catheter was left in the pleural space. Approximately 300 mL of clear yellow pleural fluid was successfully removed without complication. The tube was subsequently removed from the pleural space. The patient tolerated the procedure well. Sample of the fluid was sent to lab for preordered studies. Impression: Technically successful sonographic-guided left thoracentesis with tube insertion as above. Images reviewed, interpreted, and dictated by Dr. Nas Rebolledo. Transcribed by Kalyan Wisdom PA-C Problem list: Principal Problem: CHF exacerbation (HCC) Active Problems: Fluid overload Impression and Plan: IMPRESSION: Non-ST elevation [place] Acute combined systolic and diastolic heart failure with reduced ejection fraction, stage D, NYHA class 4 Severe LV dysfunction with EF of 20% (06/25/2025 Moderate mitral regurgitation Moderate tricuspid regurgitation Severe pulmonary hypertension End-stage renal disease on hemodialysis Severe anemia Hypertension Dyslipidemia Diabetes mellitus PLAN: 06/05/2025 Patient with severe multiple comorbidities, severe LV dysfunction, end-stage renal disease on dialysis, severe anemia - Would recommend aspirin 81 mg p.o. daily - Would recommend atorvastatin 80 mg p.o. nightly -Patient started on IV heparin, severe anemia, would recommend blood transfusion to keep hemoglobinabove 7 and preferably above 8 -Hemoglobin continue to trend down, would recommend to hold IV heparin. -Unfortunately, patient is very sick, severe anemia, multiple comorbidity, she is not a candidate for coronary angiogram at this point -Giving end-stage renal disease on dialysis, unfortunately patient will not be candidate for most of guideline directed for cardiomyopathy. -Would recommend palliative care consult to define goals of care - Prognosis is guarded at this point - Further recommendation pending clinical course. * Blaine Moreno MD - 06/25/2025 10:31 AM EDT Subjective History of Present Illness: Mar Waldron is a 55 y.o. female with a history of arthritis, CHF,ESRD, COPD, hypertension, and hypothyroidism presented to [facility] in [place], [place] for further evaluation and management of shortness of breath. Patient states she missed dialysis on Tuesday due to a family member passing away. Patient sought evaluation at [facility] where patient was found to be in acute CHF exacerbation, NSTEMI, and with moderate pleural effusion. Patient was subsequently transferred to [facility] for nephrology coverage and higher level of care. Patient was admitted for treatment of acute CHF exacerbation, NSTEMI, and pleural effusion, with consultation to cardiology and nephrology. Was seen and examined ,was dialyzed yesterday Review of Systems Constitutional: Positive for fatigue. HENT: Negative. Eyes: Negative. Respiratory: Positive for shortness of breath. Gastrointestinal: Negative. Skin: Negative. Neurological: Positive for weakness. Objective Last Recorded Vitals Blood pressure (!) 186/102, pulse 58, temperature 97.8 ??F (36.6 ??C), resp. rate 16, height 1.702 m (5' 7.01 ), weight 60 kg (132 lb 4.4 oz), SpO2 92%. Physical Exam Constitutional: Appearance: She is ill-appearing. HENT: Head: Normocephalic and atraumatic. Cardiovascular: Rate and Rhythm: Normal rate and regular rhythm. Pulmonary: Comments: Decreased BS bilaterally Abdominal: General: Abdomen is flat. Palpations: Abdomen is soft. Skin: General: Skin is warm and dry. Labs: Results for orders placed or performed during the hospital encounter of 06/23/25 (from the past 24 hours) Glucose, Nova Meter Status: Abnormal Collection Time: 06/26/25 10:56 AM Result Value Ref Range POC-GLUCOSE 143 (H) 70 - 110 mg/dL [employer] Tester [id number] PTT Heparin Protocol Status: Abnormal Collection Time: 06/26/25 6:24 PM Result Value Ref Range PTT Heparin 29.3 (L) 45 - 65 seconds Glucose, Nova Meter Status: Abnormal Collection Time: 06/26/25 8:12 PM Result Value Ref Range POC-GLUCOSE 117 (H) 70 - 110 mg/dL [employer] Tester [id number] PTT Heparin Protocol Status: Abnormal Collection Time: 06/26/25 11:57 PM Result Value Ref Range PTT Heparin 30.2 (L) 45 - 65 seconds CBC with automated diff Status: Abnormal Collection Time: 06/27/25 3:06 AM Result Value Ref Range WBC 3.8 (L) 4.0 - 10.0 K/??L RBC 2.51 (L) 3.93 - 5.22 M/??L Hemoglobin 6.8 (L) 11.2 - 15.7 GM/DL Hematocrit 24.1 (L) 34.1 - 44.9 % MCV 96 (H) 79 - 95 fL MCH 27.1 25.6 - 32.2 pg MCHC 28.2 (L) 32.2 - 35.5 GM/DL RDW 19.5 (H) 11.7 - 14.4 % Platelets 50 (L) 140 - 375 K/CU MM MPV 11.8 9.4 - 12.3 fL Nucleated Red Blood Cell 0.0 0 - 0.2 % % Neutros 59 34 - 71 % % Lymphs 26 19 - 52 % % Monos 9 5 - 13 % % Eos 4 1 - 6 % % Baso 1 0 - 1 % NRBC Absolute <0.01 0 - 0.012 K/ul # Neutros 2.24 1.56 - 6.13 K/??L # Lymphs 0.99 (L) 1.18 - 3.74 K/??L # Monos 0.35 0.24 - 0.86 K/??L # Eos 0.14 0.04 - 0.36 K/??L # Baso 0.05 0.01 - 0.08 K/??L Immature Granulocytes-Relative 0.50 (H) 0.01 - 0.43 % # IG <0.03 0.00 - 0.03 K/uL Comprehensive metabolic panel Status: Abnormal Collection Time: 06/27/25 3:06 AM Result Value Ref Range Sodium 137 136 - 145 meq/L Potassium 3.8 3.4 - 5.1 meq/L Chloride 101 98 - 112 meq/L CO2 25 22 - 29 meq/L Calcium 7.8 (L) 8.4 - 10.2 mg/dL Glucose 198 (H) 74 - 100 mg/dL BUN 27.3 (H) 9.8 - 20.1 mg/dL Creatinine 1.85 (H) 0.57 - 1.11 mg/dL BUN/Creatinine 15 8 - 20 eGFR (mL/min/1.73m2) 32 (L) >=60 mL/min/1.73m2 Albumin 2.4 (L) 3.5 - 5.0 g/dL Alkaline Phosphatase 194 (H) 40 - 150 U/L ALT <7 <=34 U/L AST 20 11 - 34 U/L Total Bilirubin 0.6 0.2 - 1.2 mg/dL Protein, Total 5.9 (L) 6.4 - 8.3 g/dL Globulin 3.5 2.5 - 4.1 g/dL Anion Gap 15 (H) 4 - 12 A/G Ratio 0.7 0.7 - 1.9 Osmolality Calc 284.6 mOsm/kg Magnesium Status: Normal Collection Time: 06/27/25 3:06 AM Result Value Ref Range Magnesium 1.6 1.6 - 2.6 mg/dL CBC Scan Status: Abnormal Collection Time: 06/27/25 3:06 AM Result Value Ref Range Platelet Estimate Decreased (A) Adequate RBC Morphology abnormal (A) Normal Anisocytosis 2+ Hypochromia 1+ Polychromasia 1+ Macrocytes 1+ Ovalocytes 1+ Elliptocytes 1+ Glucose, Nova Meter Status: Abnormal Collection Time: 06/27/25 5:14 AM Result Value Ref Range POC-GLUCOSE 193 (H) 70 - 110 mg/dL Bellows Tester [id number] Prepare RBC: 1 Units Status: None (Preliminary result) Collection Time: 06/27/25 9:47 AM Result Value Ref Range Product Identification Red Blood Cells Product Code [id number] Status Information READY Unit Number [id number] Blood Type 9500 Cross Match Results Compatible ECHO COMPLETE (DOPPLER / COLOR) W OR WO CONTRAST TRANSTHORACIC ECHOCARDIOGRAPHY REPORT Demographics Patient Name: VIET VORA : 1970 Age: 55 year(s) Corporate ID Number: [id number] Gender Female Social Work Associate: Familia Garcia, Height: 67 inches [facility] Referring Physician: ADEBAYO TORRES Weight: 132 pounds Interpreting MINDY MCKEON MD BMI: 20.67 kg/m^2 Physician: Date of Service: 06/24/2025 Blood Pressure: 154/92 mmHg Room Number: 566 Type of Study: TTE procedure: ECHO COMPLETE (DOPPLER / COLOR) W OR WO CONTRAST. [facility] History/Tech Notes: Indication: shortness of breath R06.02, CHF Impression: ######################################## Definity ultrasound enhancing agent administered for endocardial border definition. Normal sized left ventricle. Mild left ventricular hypertrophy. Visually estimated ejection fraction 20% +/- 5%. Severe left ventricular systolic dysfunction with abnormal systolic strain pattern. Restrictive filling pattern consistent with severely increased LV filling pressure (Grade III Diastolic dysfunction). Moderate (2+) mitral regurgitation. PISA ERO: 0.3 cm2. Moderate (2+) tricuspid regurgitation. Severe pulmonary hypertension. RVSP 90 mmHg. Moderate pulmonic regurgitation (2+). Severely abnormal left atrial volume index 58 ml/m^2. Severely dilated right ventricle. Abnormal TAPSE; abnormal right ventricular function. Elevated central venous pressure >15mmHg. ######################################## Measurements Summary: LVEDd: 4.92 cm LVESd: 4.13 cm IVSEd: 1.2 cm AO Root:2.9 cm LVPWd: 1.12 cm Contractility Score Global Left Ventricular Hypokinesis was noted. LV regional wall motion: (0-Not visualized 1-Normal 2-Hypokinesis 3-Akinesis 4-Dyskinesis 5-Aneurysm) Left Ventricle Peak E-wave: 1.1 Peak A-wave: 0.43 m/s E/A ratio: 2.58 m/s Volume [id number] LV length: 8.52 cm ml Volume [id number] ml LVOT diameter: 1.7 cm Normal sized left ventricle. Mild left ventricular hypertrophy. Visually estimated ejection fraction 20% +/- 5%. Severe left ventricular systolic dysfunction with abnormal systolic strain pattern. Restrictive filling pattern consistent with severely increased LV filling pressure (Grade III Diastolic dysfunction). No left ventricular masses or thrombi. Right Ventricle Diastolic dimension: 4.96 RV systolic pressure: 90.15 mmHg cm Severely dilated right ventricle. Abnormal TAPSE; abnormal right ventricular function. Left Atrium LA dimension: 4.6 cm LA volume:98.51 ml LA/Aorta: 1.59 Severely abnormal left atrial volume index 58 ml/m^2. Intact atrial septum. No atrial mass or thrombus. Right Atrium Normal sized right atrium. Intact atrial septum. No atrial mass or thrombus. Mitral Valve Deceleration time: Area PHT: 3.32 cm^2 Mean velocity: 121.63 msec P1/2t: 66.19 msec 0.79 m/s MR velocity: 5.13 Mean gradient: m/s 2.88 mmHg Area (continuity): Peak gradient: 1.35 cm^2 8.04 mmHg MR VTI: 207.26 cm Thickened mitral valve leaflets. Mitral valve annulus calcification. Moderate (2+) mitral regurgitation. PISA ERO: 0.3 cm2. No mitral stenosis. No masses or vegetations seen. Aortic Valve AI P1/2t: 406.25 msec Peak velocity: 1.17 m/s LVOT VTI: 20.6 cm Peak gradient: 5.44 mmHg Deceleration time: 1400.88 msec Three cusped aortic valve. Thickened free edges of the aortic valve leaflets. Nodular calcification of LCC noted. Slice artifact of LCC calcification noted in PLAX view. Mild aortic regurgitation. No aortic stenosis. No masses or vegetations seen. Tricuspid Valve TR velocity: 4.33 m/s TR gradient: 75.92603 mmHg Estimated RAP: 15 mmHg RVSP: 90.15 mmHg Structurally normal tricuspid valve. Moderate (2+) tricuspid regurgitation. Severe pulmonary hypertension. RVSP 90 mmHg. No tricuspid stenosis. No masses or vegetations seen. Pulmonic Valve Acceleration time: 110.37 msec PASP: 90.15 mmHg Structurally normal pulmonic valve. Moderate pulmonic regurgitation (2+). No pulmonic stenosis. No masses or vegetations seen. Great Vessels Aorta Aortic Root: 2.9 cm LVOT Diameter: 1.7 cm Visualized thoracic aorta is normal. Normal aortic root. No evidence of dissection. Dilated IVC with no inspiratory collapse. Elevated central venous pressure >15mmHg. Pericardium / Pleura No pericardial effusion. Other Definity ultrasound enhancing agent administered for endocardial border definition. XR chest 2 views Narrative: TWO-VIEW CHEST 06/24/2025 2:10 PM HISTORY: Pleural effusion. Postthoracentesis. COMPARISON: June 23, 2025 FINDINGS: The cardiac silhouette is mildly enlarged. The aortic contours are normal. The mediastinal and hilar structures are unremarkable. There is pulmonary vascular congestion with a moderate right pleural effusion. There is right lower lobe consolidation. There is no pneumothorax. Status post median sternotomy. Impression: No pneumothorax post thoracentesis. Pulmonary vascular congestion with right lower lobe consolidation and moderate right pleural effusion. Images reviewed, interpreted, and dictated by Dr. Nas Rebolledo. Transcribed by Kalyan Wisdom PA-C US THORACENTESIS LT Narrative: ULTRASOUND-GUIDED THORACENTESIS WITH TUBE INSERTION HISTORY: Left pleural effusion. ATTENDING RADIOLOGIST: Dr. Rebolledo. PHYSICIAN MEDICAL LEGAL INVESTIGATOR: Kalyan Wisdom PA-C. TECHNIQUE: Informed consent was obtained from the patient. The indications and complications were discussed prior to beginning the procedure. This included, but was not limited to, pain, bleeding, infection, and pneumothorax requiring chest tube placement. The left back was then prepped and draped in sterile fashion. 1% lidocaine was used for local anesthesia. Utilizing sonographic guidance, a standard thoracentesis needle and sheath were inserted into the pleural space. The needle was removed and the catheter was left in the pleural space. Approximately 300 mL of clear yellow pleural fluid was successfully removed without complication. The tube was subsequently removed from the pleural space. The patient tolerated the procedure well. Sample of the fluid was sent to lab for preordered studies. Impression: Technically successful sonographic-guided left thoracentesis with tube insertion as above. Images reviewed, interpreted, and dictated by Dr. Nas Rebolledo. Transcribed by Kalyan Wisdom PA-C Assessment 1. Volume overload/moderate to large pleural effusions 2. End-stage renal disease on dialysis Tuesday 3. Pancytopenia/underlying liver cirrhosis 4. Acute exacerbation of CHF due to diastolic dysfunction 5. COPD 6. Severe protein energy malnourishment 7. History of CAD prior stenting 8.NSTEMI. Plan -Evaluate on daily basis to volume status, otherwise we will resume Tuesday schedule,Will dialyze tomorrow -Patient has pancytopenia likely underlying liver cirrhosis/hematology malignancy, extra managementas per primary -Fluid restriction 1.5 L 24-hour with 2 g of salt restriction 24-hour with dietitian consult -Avoid nephrotoxins -Strict intake and output -Bladder scan as needed -Keep MAP above 65 and hemoglobin above 7 -Renally dose medications and antibiotics -Monitor kidney function electrolytes on daily basis -Would recommend palliative consultation/hospice given the several comorbidities of this patient and poor functional status and poor quality of life with very high mortality given the above comorbidities -Thanks for consultation [facility] [address] [place], [place], [address] Phone #[phone] Fax #[phone] High complex case * Mundo Díaz MD - 06/25/2025 8:37 AM EDT Subjective Mar Waldron is a 55 y.o. female on hospital day 2. Hemoglobin 6.4 ordered packed RBCs. Review of Systems As above Objective Vitals: Temp: [97 ??F (36.1 ??C)-98.8 ??F (37.1 ??C)] 97.2 ??F (36.2 ??C) Pulse: [49-102] 51 Resp: [16-20] 18 BP: (99-198)/(31-113) 153/48 Intake/Output: Intake/Output Summary (Last 24 hours) at 06/25/2025 0837 Last data filed at 06/24/2025 1820 Gross per 24 hour Intake 500 ml Output 2000 ml Net -1500 ml Physical exam: General: Alert and interactive, in mild distress. Eyes: Conjunctiva appropriate, Sclera white HENT: Normocephalic, adequate hearing, moist oral mucosa Lungs: Increased work of breathing, diminished breath sounds bilateral bases Heart: Tachycardic Abdomen: Soft, non-tender, non-distended, active bowel sounds Neurologic: Awake, alert and oriented X 3, sensory intact, no focal deficits Psychiatric: Cooperative, appropriate mood and affect Labs: Recent Labs Lab(s) Units 06/25/25 0746 06/25/25 0459 06/24/25 2122 06/24/25 2040 06/24/25 1213 06/24/25 0633 06/24/25 0632 06/24/25 0457 06/23/25 2327 06/23/252025 WBC K/??L 4.1 -- 4.8 -- -- -- 4.6 -- -- 5.3 HGB GM/DL 6.4* -- 7.1* -- -- -- 8.6* -- -- 7.7* HCT % 22.6* -- 24.5* -- -- -- 31.2* -- -- 27.9* PLT K/CU MM 60* -- 67* -- -- -- 67* -- -- 71* PROTIME seconds -- -- 12.4* -- -- -- -- -- 11.4 -- INR -- -- 1.13* -- -- -- -- -- 1.03 -- NA meq/L -- -- -- -- -- 142 -- -- -- 141 K meq/L -- -- -- -- -- 4.4 -- -- -- 4.2 CL meq/L -- -- -- -- -- 101 -- -- -- 101 CO2 meq/L -- -- -- -- -- 25 -- -- -- 24 BUN mg/dL -- -- -- -- -- 39.6* -- -- -- 38.1* CREATININE mg/dL -- -- -- -- -- 2.74* -- -- -- 2.72* EGFR mL/min/1.73m2 -- -- -- -- -- 20* -- -- -- 20* GLUCOSE mg/dL -- 82 -- 89 124* 108* -- < > -- 103* CALCIUM mg/dL -- -- -- -- -- 8.7 -- -- -- 8.4 ALKPHOS U/L -- -- -- -- -- 247* -- -- -- 228* BILITOT mg/dL -- -- -- -- -- 0.7 -- -- -- 0.7 PROT g/dL -- -- -- -- -- 7.3 -- -- -- 6.7 ALT U/L -- -- -- -- -- 13 -- -- -- 12 AST U/L -- -- -- -- -- 38* -- -- -- 32 < > = values in this interval not displayed. Results for orders placed or performed during the hospital encounter of 06/23/25 (from the past 24 hours) Glucose, Nova Meter Status: Abnormal Collection Time: 06/24/25 12:13 PM Result Value Ref Range POC-GLUCOSE 124 (H) 70 - 110 mg/dL Bellows Tester [id number] PTT Heparin Protocol Status: Normal Collection Time: 06/24/25 12:42 PM Result Value Ref Range PTT Heparin 54.9 45 - 65 seconds Lactate dehydrogenase (LDH), body fluid Status: None Collection Time: 06/24/25 2:06 PM Result Value Ref Range LDH, Fluid 67 See Comment U/L BODY FLUID TYPE Pleural Protein, body fluid Status: None Collection Time: 06/24/25 2:06 PM Result Value Ref Range Protein, Fluid 1.5 See Comment g/dL BODY FLUID TYPE Pleural Body fluid cell count with differential Status: None Collection Time: 06/24/25 2:06 PM Result Value Ref Range Appearance Clear Clear Color Yellow BODY FLUID TYPE Pleural Auto WBC/Nucleated Cells BF 253 /uL Auto RBC BF 3,000 /uL Body Fluid Culture + Gram Stain Status: None (Preliminary result) Collection Time: 06/24/25 2:06 PM Specimen: Pleural, Left; Pleural Fluid Result Value Ref Range Result No growth Gram Stain Result No organisms seen Gram Stain Result Rare WBCs Glucose, body fluid Status: None Collection Time: 06/24/25 2:06 PM Result Value Ref Range Glucose, Body Fluid 119 See Comment mg/dL BODY FLUID TYPE Pleural Fungus Culture W/TERRI Or Jocelin Ink Status: None (Preliminary result) Collection Time: 06/24/25 2:06 PM Specimen: Pleural, Left; Pleural Fluid Result Value Ref Range TERRI Prep No fungal elements seen DIFFERENTIAL, BODY FLUID Status: None Collection Time: 06/24/25 2:06 PM Result Value Ref Range Neutrophils Fluid 13 0 - 25 % Lymphocytes Fluid 30 % Monocytes Fluid 9 0 - 65 % Unidentified Mononuclear Cells BF 48 0 - 0 % Body Fluid/CSF - Path Review () Status: None Collection Time: 06/24/25 2:06 PM Result Value Ref Range Differential Comment Macrophages and blood. No malignancy seen. Manoj Cai MD 06-24-2025 Glucose, Nova Meter Status: None Collection Time: 06/24/25 8:40 PM Result Value Ref Range POC-GLUCOSE 89 70 - 110 mg/dL Bellows Tester [id number] PTT Heparin Protocol Status: Abnormal Collection Time: 06/24/25 9:22 PM Result Value Ref Range PTT Heparin 37.3 (L) 45 - 65 seconds CBC with Automated Diff Status: Abnormal Collection Time: 06/24/25 9:22 PM Result Value Ref Range WBC 4.8 4.0 - 10.0 K/??L RBC 2.64 (L) 3.93 - 5.22 M/??L Hemoglobin 7.1 (L) 11.2 - 15.7 GM/DL Hematocrit 24.5 (L) 34.1 - 44.9 % MCV 93 79 - 95 fL MCH 26.9 25.6 - 32.2 pg MCHC 29.0 (L) 32.2 - 35.5 GM/DL RDW 20.2 (H) 11.7 - 14.4 % Platelets 67 (L) 140 - 375 K/CU MM MPV 11.2 9.4 - 12.3 fL % Neutros 72 (H) 34 - 71 % % Lymphs 19 19 - 52 % % Monos 7 5 - 13 % % Eos 2 1 - 6 % % Baso 0 0 - 1 % NRBC Absolute <0.01 0 - 0.012 K/ul # Neutros 3.47 1.56 - 6.13 K/??L # Lymphs 0.91 (L) 1.18 - 3.74 K/??L # Monos 0.32 0.24 - 0.86 K/??L # Eos 0.08 0.04 - 0.36 K/??L # Baso <0.03 0.01 - 0.08 K/ L Immature Granulocytes-Relative 0.40 0.01 - 0.43 % # IG <0.03 0.00 - 0.03 K/uL PT/INR, PTT Status: Abnormal Collection Time: 06/24/25 9:22 PM Result Value Ref Range aPTT 37.3 (H) 22.0 - 32.0 seconds Protime 12.4 (H) 9.0 - 12.0 seconds INR 1.13 (H) 0.80 - 1.10 CBC Scan Status: Abnormal Collection Time: 06/24/25 9:22 PM Result Value Ref Range Platelet Estimate Decreased (A) Adequate RBC Morphology abnormal (A) Normal Anisocytosis 2+ Hypochromia 2+ Macrocytes 1+ Poikilocytes 1+ Glucose, Nova Meter Status: None Collection Time: 06/25/25 4:59 AM Result Value Ref Range POC-GLUCOSE 82 70 - 110 mg/dL Bellows Tester [id number] CBC with automated diff Status: Abnormal Collection Time: 06/25/25 7:46 AM Result Value Ref Range WBC 4.1 4.0 - 10.0 K/??L RBC 2.45 (L) 3.93 - 5.22 M/??L Hemoglobin 6.4 (LL) 11.2 - 15.7 GM/DL Hematocrit 22.6 (L) 34.1 - 44.9 % MCV 92 79 - 95 fL MCH 26.1 25.6 - 32.2 pg MCHC 28.3 (L) 32.2 - 35.5 GM/DL RDW 20.0 (H) 11.7 - 14.4 % Platelets 60 (L) 140 - 375 K/CU MM MPV 11.4 9.4 - 12.3 fL % Neutros 65 34 - 71 % % Lymphs 23 19 - 52 % % Monos 8 5 - 13 % % Eos 3 1 - 6 % % Baso 1 0 - 1 % NRBC Absolute <0.01 0 - 0.012 K/ul # Neutros 2.66 1.56 - 6.13 K/??L # Lymphs 0.95 (L) 1.18 - 3.74 K/??L # Monos 0.33 0.24 - 0.86 K/??L # Eos 0.12 0.04 - 0.36 K/??L # Baso <0.03 0.01 - 0.08 K/ L Immature Granulocytes-Relative 0.20 0.01 - 0.43 % # IG <0.03 0.00 - 0.03 K/uL CBC Scan Status: Abnormal Collection Time: 06/25/25 7:46 AM Result Value Ref Range Platelet Estimate Decreased (A) Adequate RBC Morphology Normal Normal Hypochromia 1+ Radiology: XR chest 2 views Final Result No pneumothorax post thoracentesis. Pulmonary vascular congestion with right lower lobe consolidation and moderate right pleural effusion. Images reviewed, interpreted, and dictated by Dr. Nas Rebolledo. Transcribed by Kalyan Wisdom PA-C US THORACENTESIS LT Final Result Technically successful sonographic-guided left thoracentesis with tube insertion as above. Images reviewed, interpreted, and dictated by Dr. Nas Rebolledo. Transcribed by Kalyan Wisdom PA-C ECHO COMPLETE (DOPPLER / COLOR) W OR WO CONTRAST Final Result XR chest AP portable Final Result Impression: Probable acute pulmonary edema pattern Authenticated and REQUEST - MISCELLANEOUS (Results Pending) Medications: Scheduled Meds: acetaZOLAMIDE 250 mg oral BID aspirin 81 mg oral Daily 81 mg at 06/24/25904 atorvastatin 40 mg oral Every Night 40 mg at 06/24/252029 budesonide 0.5 mg nebulization 2 times daily 0.5 mg at 06/23/252044 carvediloL 12.5 mg oral BID w/breakfast & dinner 12.5 mg at 06/24/251908 doxazosin 2 mg oral BID hydrALAZINE 20 mg intravenous TID 20 mg at 06/24/25903 hydrALAZINE 75 mg oral 4x Daily insulin lispro 0-12 Units subcutaneous 4x Daily AC isosorbide mononitrate 120 mg oral Daily levothyroxine 88 mcg oral QAM (00) 88 mcg at 06/25/25609 pantoprazole 40 mg oral Daily 40 mg at 06/24/25904 Continuous Infusions: Current Facility-Administered Medications Medication Dose Route Frequency Provider Last Rate Last Admin acetaminophen (TYLENOL) tablet 1,000 mg 1,000 mg oral Q6H PRN Dajuan Banuelos MD acetaZOLAMIDE (DIAMOX) tablet 250 mg 250 mg oral BID Dajuan Banuelos MD albumin human 25 % IV 25 g 25 g intravenous PRN Blaine Moreno MD aspirin EC tablet 81 mg 81 mg oral Daily Vlad Waters PA-C 81 mg at 06/24/25904 atorvastatin (LIPITOR) tablet 40 mg 40 mg oral Every Night Vlad Waters PA-C 40 mg at 06/24/252029 budesonide (PULMICORT) nebulizer suspension 0.5 mg 0.5 mg nebulization 2 times daily Vlad Waters PA-C 0.5 mg at 06/23/252044 carvediloL (COREG) tablet 12.5 mg 12.5 mg oral BID w/breakfast & dinner Vlad Waters PA-C 12.5mg at 06/24/25 1909 cloNIDine (CATAPRES) tablet 0.1 mg 0.1 mg oral Q8H PRN Vlad Waters PA-C 0.1 mg at 06/24/25 1217 dextrose 50% (D50W) injection 25 g 25 g intravenous Q15 Min PRN Vlad Waters PA-C diphenhydrAMINE (BENADRYL) capsule 25 mg 25 mg oral Every Night PRN Dajuan Banuelos MD doxazosin (CARDURA) tablet 2 mg 2 mg oral BID Dajuan Banuelos MD glucagon injection 1 mg 1 mg intraMUSCULAR Q15 Min PRN Vlad Waters PA-C glucose chew tab 16 g 16 g oral Q15 Min PRN Vlad Waters PA-C heparin bolus from bag 3,540 Units 60 Units/kg intravenous Q6H PRN Vlad Waters PA-C Or heparin bolus from bag 2,360 Units 40 Units/kg intravenous Q6H PRN Vlad Waters PA-C 2,360 Units at 06/24/25 2247 heparin infusion 25,000 units in sodium chloride 0.45% (NS) 250 mL (100 units/mL) 2-24 Units/kg/hr intravenous Titrated Vlad Waters PA-C 9.4 mL/hr at 06/24/25 2302 16 Units/kg/hr at 06/24/25 2302 hydrALAZINE (APRESOLINE) injection 20 mg 20 mg intravenous TID GARCIA Villagran 20 mg at 904 hydrALAZINE (APRESOLINE) tablet 75 mg 75 mg oral 4x Daily Dajuan Banuelos MD insulin lispro (HUMALOG, ADMELOG) injection 0-12 Units 0-12 Units subcutaneous 4x Daily AC Vlad Waters PA-C ipratropium-albuteroL (DUO-NEB) 0.5 mg-3 mg(2.5 mg base)/3 mL nebulizer solution 3 mL 3 mL nebulization Q6H PRN Vlad Waters PA-C isosorbide mononitrate (IMDUR) 24 hr tablet 120 mg 120 mg oral Daily Dajuan Banuelos MD levothyroxine (SYNTHROID) tablet 88 mcg 88 mcg oral QAM (0600) GARCIA Villagran 88 mcg at 06/25/25 0610 LORazepam (ATIVAN) tablet 0.5 mg 0.5 mg oral Q8H PRN Dajuan Banuelos MD 0.5 mg at 06/24/25 0951 magnesium sulfate IVPB 2 g in sterile water 50 mL (premix) 2 g intravenous Daily PRN Vlad Waters PA-C magnesium sulfate IVPB 2 g in sterile water 50 mL (premix) 2 g intravenous BID PRN Vlad Waters PA-C melatonin tablet 5 mg 5 mg oral Every Night PRN Vlad Waters PA-C 5 mg at 06/24/25 2030 morphine injection 2 mg 2 mg intravenous Q4H PRN Vlad Waters PA-C naloxone (NARCAN) injection 0.2 mg 0.2 mg intravenous Q2 Min PRN Dajuan Banuelos MD nitroglycerin (NITROSTAT) tablet 0.4 mg 0.4 mg sublingual Q5 Min PRN Vlad Waters PA-C ondansetron (ZOFRAN-ODT) disintegrating tablet 4 mg 4 mg oral Q8H PRN Vlad Waters PA-C Or ondansetron (ZOFRAN) injection 4 mg 4 mg intravenous Q8H PRN Vlad Waters PA-C oxyCODONE (ROXICODONE) immediate release tablet 10 mg 10 mg oral Q4H PRN Vlad Waters PA-C 10 mg at 06/24/25 1914 pantoprazole (PROTONIX) EC tablet 40 mg 40 mg oral Daily Vlad Waters PA-C 40 mg at 06/24/25 0905 sodium chloride 0.9 % infusion 20 mL/hr intravenous Once Mundo Díaz MD sodium chloride 0.9% (NS) bolus 250 mL intravenous Daily PRN Blaine Moreno MD sodium chloride flush 10 mL 10 mL intravenous PRN Dajuan Banuelos MD PRN Meds: @MEDSPRN@ Assessment and Plan NSTEMI Severe anemia History of CAD prior stenting. Likely related to ESRD Thrombocytopenia -Heparin infusion with caution - Packed RBCs to keep hemoglobin above 7. - Patient is currently on aspirin atorvastatin Coreg Imdur - Protonix twice daily. Acute diastolic heart failure exacerbation Complicated by ESRD EF 55% - Coreg, treat NSTEMI, ultrafiltration, treat anemia, left thoracentesis done 06/24/2025 >>>100 mL removed. - Oxygen low-salt diet - Continue Tuesday dialysis Diabetes sliding scale insulin Thrombocytopenia/anemia - Unexplained - ESRD, liver disease, bone marrow failure COPD continue as needed inhalers. Hypothyroidism continue levothyroxine. Renal mass concerning for malignancy. Follow-up urology. Protein calorie malnutrition present on admission Boost twice daily Diet: Orders Placed This Encounter Procedures NPO Except: Ice Chips, Sips with meds DVT ppx: IV heparin PUD ppx: Code Status: Full Code MDM: Hemoglobin 6.4 ordered packed RBC thrombocytopenia 60K white count normal INR is 1.1, electrolytes okay patient has NSTEMI on IV heparin infusion high risk of blood loss transfusing packed RBCs May hold heparin if platelets drops below 50,000. High morbidity mortality patient has ESRD and CHF NSTEMI thrombocytopenia severe anemia requiring blood transfusion Patient follows up with she was recently discharged. Discharge Planning: Unable to determine. * Citlalli Wood RN - 06/25/2025 7:19 AM EDT Lab notified and reminded about collecting PTT for patient at 5 am and follow up was done afterwards till end of shift. PTT yet to be collected. Pt 's fistula intact with no bleeding at end of shift and handover given to RN * Mindy Mckeon MD - 06/25/2025 5:44 AM EDT [facility] Basic Information: Name Mar Waldron, 1970, 55 y.o., female PCP: Osmani Becker MD Admit Date 06/23/2025 Patient Location [id number] Chief Complaint/Consult reason: Short of breath short of breath Consult for elevated troponin Subjective: Still short of air, not feeling well, denied any chest pain Health Status: Allergies Basaglar Kwikpen U-100 Insulin [Insulin Glargine] and Lisinopril Home Medications: Prior to Admission medications Medication Sig Start Date End Date Taking? Authorizing Provider acetaZOLAMIDE (DIAMOX) 250 MG tablet Take 1 tablet (250 mg total) by mouth 2 (two) times daily. Historical Provider, aspirin 325 MG tablet Take 1 tablet (325 mg total) by mouth daily. Historical Provider, carvediloL (COREG) 25 MG tablet Take 1 tablet (25 mg total) by mouth 2 (two) times daily with breakfast and dinner. Historical Provider, cloNIDine HCL (CATAPRES) 0.1 MG tablet Take 1 tablet (0.1 mg total) by mouth 2 (two) times daily asneeded (sys greater than 180). Historical Provider, clopidogreL (PLAVIX) 75 mg tablet Take 1 tablet (75 mg total) by mouth daily. Historical Provider, doxazosin (CARDURA) 2 MG tablet Take 1 tablet (2 mg total) by mouth 2 (two) times daily. HistoricalProviderMD ezetimibe (ZETIA) 10 mg tablet Take 1 tablet (10 mg total) by mouth nightly. Historical Provider, hydrALAZINE (APRESOLINE) 50 MG tablet Take 1.5 tablets (75 mg total) by mouth 4 (four) times daily.Historical Provider, isosorbide mononitrate (IMDUR) 60 MG 24 hr tablet Take 2 tablets (120 mg total) by mouth daily. Historical Provider, levothyroxine (SYNTHROID, LEVOTHROID) 75 MCG tablet Take 1 tablet (75 mcg total) by mouth Every morning on an empty stomach. Historical Provider, oxyCODONE-acetaminophen (PERCOCET) 10-325 mg per tablet Take 1 tablet by mouth every 6 (six) hours as needed for pain. Historical Provider, pantoprazole (PROTONIX) 20 MG tablet Take 1 tablet (20 mg total) by mouth daily. Historical Provider, valsartan (DIOVAN) 160 MG tablet Take 1 tablet (160 mg total) by mouth 2 (two) times daily. Historical ProviderMD Past Medical History: Pt has a past medical history of Arthritis, Cancer (HCC), CHF (congestive heart failure) (HCC), Chronic kidney disease requiring chronic dialysis (HCC), COPD (chronic obstructive pulmonary disease) (HCC), Hypertension, Murmur, and Thyroid disease. Surgical History: Pt has a past surgical history that includes triple bypass (2012); left arm fistula (Left); Eye surgery; Cataract extraction; Gallbladder surgery; Appendectomy; Hysterectomy; and Cardiac surgery. Tobacco History Pt reports that she has been smoking cigarettes. She has never used smokeless tobacco. Alcohol History Pt reports no history of alcohol use. Drug Use History Pt reports current drug use. Drug: Marijuana. Family History family history is not on file. OBJECTIVE Vital ranges lat 24 hours Temp: [97.3 ??F (36.3 ??C)-98.8 ??F (37.1 ??C)] 98.8 ??F (37.1 ??C) Pulse: [50-102] 57 Resp: [16-20] 18 BP: (104-198)/(31-127) 154/31 Intake and Output 24 hours: Intake/Output Summary (Last 24 hours) at 06/24/20252256 Last data filed at 06/24/2025 1820 Gross per 24 hour Intake 500 ml Output 2001 ml Net -1501 ml Net I&O this admission: Net IO Since Admission: -1,251 mL [06/24/252256] PHYSICAL EXAMINATION General: Patient was alert and oriented, moderate distress, ill-appearing HEENT: atraumatic and normocephalic, no conjunctival injection, no icterus Neck: supple, no JVD,no bruit, no thyromegaly Chest/Resp: Bilateral crepitations Cardio: S1 and S2 normal, no murmurs, gallops or rubs. Abdomen/GI: The abdomen is soft without tenderness Extremities: + Skin: no rashes Neuro: no focal neurologic deficits grossly AOx3 Inpatient Medications Current Facility-Administered Medications Medication Dose Route Frequency Provider Last Rate Last Admin acetaminophen (TYLENOL) tablet 1,000 mg 1,000 mg oral Q6H PRN Dajuan Banuelos MD acetaZOLAMIDE (DIAMOX) tablet 250 mg 250 mg oral BID Dajuan Banuelos MD albumin human 25 % IV 25 g 25 g intravenous PRN Blaine Moreno MD aspirin EC tablet 81 mg 81 mg oral Daily Vlad Waters PA-C 81 mg at 06/24/25 0905 atorvastatin (LIPITOR) tablet 40 mg 40 mg oral Every Night Vlad Waters PA-C 40 mg at 06/24/252029 budesonide (PULMICORT) nebulizer suspension 0.5 mg 0.5 mg nebulization 2 times daily Vlad Waters PA-C 0.5 mg at 06/23/252044 carvediloL (COREG) tablet 12.5 mg 12.5 mg oral BID w/breakfast & dinner Vlad Waters PA-C 12.5mg at 06/24/25 190 cloNIDine (CATAPRES) tablet 0.1 mg 0.1 mg oral Q8H PRN Vlad Waters PA-C 0.1 mg at 06/24/25 1217 dextrose 50% (D50W) injection 25 g 25 g intravenous Q15 Min PRN Vlad Waters PA-C diphenhydrAMINE (BENADRYL) capsule 25 mg 25 mg oral Every Night PRN Dajuan Banuelos MD doxazosin (CARDURA) tablet 2 mg 2 mg oral BID Dajuan Banuelos MD glucagon injection 1 mg 1 mg intraMUSCULAR Q15 Min PRN Vlad Waters PA-C glucose chew tab 16 g 16 g oral Q15 Min PRN Vlad Waters PA-C heparin bolus from bag 3,540 Units 60 Units/kg intravenous Q6H PRN Vlad Waters PA-C Or heparin bolus from bag 2,360 Units 40 Units/kg intravenous Q6H PRN Vlad Waters PA-C 2,360 Units at 06/24/25 2247 heparin infusion 25,000 units in sodium chloride 0.45% (NS) 250 mL (100 units/mL) 2-24 Units/kg/hr intravenous Titrated Vlad Waters PA-C 1.2 mL/hr at 06/24/25 0739 2 Units/kg/hr at 06/24/25 0739 hydrALAZINE (APRESOLINE) injection 20 mg 20 mg intravenous TID GARCIA Villagran 20 mg at 904 hydrALAZINE (APRESOLINE) tablet 75 mg 75 mg oral 4x Daily Dajuan Banuelos MD insulin lispro (HUMALOG, ADMELOG) injection 0-12 Units 0-12 Units subcutaneous 4x Daily AC Vlad Waters PA-C ipratropium-albuteroL (DUO-NEB) 0.5 mg-3 mg(2.5 mg base)/3 mL nebulizer solution 3 mL 3 mL nebulization Q6H PRN Vlad Waters PA-C isosorbide mononitrate (IMDUR) 24 hr tablet 120 mg 120 mg oral Daily Dajuan Banuelos MD levothyroxine (SYNTHROID) tablet 88 mcg 88 mcg oral QAM (0600) GARCIA Villagran 88 mcg at 06/24/25 0613 LORazepam (ATIVAN) tablet 0.5 mg 0.5 mg oral Q8H PRN Dajuan Banuelos MD 0.5 mg at 06/24/25 0951 magnesium sulfate IVPB 2 g in sterile water 50 mL (premix) 2 g intravenous Daily PRN Vlad Waters PA-C magnesium sulfate IVPB 2 g in sterile water 50 mL (premix) 2 g intravenous BID PRN Vlad Waters PA-C melatonin tablet 5 mg 5 mg oral Every Night PRN Vlad Waters PA-C 5 mg at 06/24/25 2030 morphine injection 2 mg 2 mg intravenous Q4H PRN Vlad Waters PA-C naloxone (NARCAN) injection 0.2 mg 0.2 mg intravenous Q2 Min PRN Dajuan Banuelos MD nitroglycerin (NITROSTAT) tablet 0.4 mg 0.4 mg sublingual Q5 Min PRN Vlad Waters PA-C ondansetron (ZOFRAN-ODT) disintegrating tablet 4 mg 4 mg oral Q8H PRN Vlad Waters PA-C Or ondansetron (ZOFRAN) injection 4 mg 4 mg intravenous Q8H PRN Vlad Waters PA-C oxyCODONE (ROXICODONE) immediate release tablet 10 mg 10 mg oral Q4H PRN Vlad Waters PA-C 10 mg at 06/24/25 1914 pantoprazole (PROTONIX) EC tablet 40 mg 40 mg oral Daily Vlad Waters PA-C 40 mg at 06/24/25 0905 sodium chloride 0.9% (NS) bolus 250 mL intravenous Daily PRN Blaine Moreno MD sodium chloride flush 10 mL 10 mL intravenous PRN Dajuan Banuelos MD Results Review: Labs: WBC Date Value Ref Range Status 06/24/2025 4.8 4.0 - 10.0 K/??L Final 06/24/2025 4.6 4.0 - 10.0 K/??L Final 06/23/2025 5.3 4.0 - 10.0 K/??L Final Hemoglobin Date Value Ref Range Status 06/24/2025 7.1 (L) 11.2 - 15.7 GM/DL Final 06/24/2025 8.6 (L) 11.2 - 15.7 GM/DL Final 06/23/2025 7.7 (L) 11.2 - 15.7 GM/DL Final Platelets Date Value Ref Range Status 06/24/2025 67 (L) 140 - 375 K/CU MM Final 06/24/2025 67 (L) 140 - 375 K/CU MM Final 06/23/2025 71 (L) 140 - 375 K/CU MM Final Creatinine Date Value Ref Range Status 06/24/2025 2.74 (H) 0.57 - 1.11 mg/dL Final 06/23/2025 2.72 (H) 0.57 - 1.11 mg/dL Final 06/20/2024 4.01 (H) 0.55 - 1.02 mg/dL Final BUN Date Value Ref Range Status 06/24/2025 39.6 (H) 9.8 - 20.1 mg/dL Final 06/23/2025 38.1 (H) 9.8 - 20.1 mg/dL Final 06/20/2024 64 (H) 7 - 22 mg/dL Final Potassium Date Value Ref Range Status 06/24/2025 4.4 3.4 - 5.1 meq/L Final 06/23/2025 4.2 3.4 - 5.1 meq/L Final 06/20/2024 4.2 3.5 - 5.1 meq/L Final Sodium Date Value Ref Range Status 06/24/2025 142 136 - 145 meq/L Final 06/23/2025 141 136 - 145 meq/L Final 06/20/2024 137 136 - 146 meq/L Final Magnesium Date Value Ref Range Status 06/16/2024 1.7 1.5 - 2.4 mg/dL Final 06/06/2024 1.8 1.5 - 2.4 mg/dL Final 06/05/2024 1.9 1.5 - 2.4 mg/dL Final AST Date Value Ref Range Status 06/24/2025 38 (H) 11 - 34 U/L Final Comment: AST2 reagent used for testing does not contain P5P supplementation and therefore may miss AST elevations in patients with B6 deficiency. This population may be as high as 10% in the [place], with risk factors including malabsorption, drug interactions, and alcoholic hepatitis. ALT Date Value Ref Range Status 06/24/2025 13 <=34 U/L Final Comment: ALT2 reagent used for testing does not contain P5P supplementation and therefore may miss ALT elevations in patients with B6 deficiency. This population may be as high as 10% in the [place], with risk factors including malabsorption, drug interactions, and alcoholic hepatitis. Alkaline Phosphatase Date Value Ref Range Status 06/24/2025 247 (H) 40 - 150 U/L Final INR Date Value Ref Range Status 06/24/2025 1.13 (H) 0.80 - 1.10 Final Imaging: ECHO COMPLETE (DOPPLER / COLOR) W OR WO CONTRAST TRANSTHORACIC ECHOCARDIOGRAPHY REPORT Demographics Patient Name: VIET VORA : 1970 Age: 55 year(s) Corporate ID Number: [id number] Gender Female Social Work Associate: Familia Garcia, Height: 67 inches [facility] Referring Physician: ADEBAYO TORRES Weight: 132 pounds Interpreting MINDY MCKEON MD BMI: 20.67 kg/m^2 Physician: Date of Service: 06/24/2025 Blood Pressure: 154/92 mmHg Room Number: 566 Type of Study: TTE procedure: ECHO COMPLETE (DOPPLER / COLOR) W OR WO CONTRAST. Patient Status: ALICE [facility] Quality: Adequate visualization History/Tech Notes: Indication: shortness of breath R06.02, CHF Impression: ######################################## Definity ultrasound enhancing agent administered for endocardial border definition. Normal sized left ventricle. Mild left ventricular hypertrophy. Visually estimated ejection fraction 20% +/- 5%. Severe left ventricular systolic dysfunction with abnormal systolic strain pattern. Restrictive filling pattern consistent with severely increased LV filling pressure (Grade III Diastolic dysfunction). Moderate (2+) mitral regurgitation. PISA ERO: 0.3 cm2. Moderate (2+) tricuspid regurgitation. Severe pulmonary hypertension. RVSP 90 mmHg. Moderate pulmonic regurgitation (2+). Severely abnormal left atrial volume index 58 ml/m^2. Severely dilated right ventricle. Abnormal TAPSE; abnormal right ventricular function. Elevated central venous pressure >15mmHg. ######################################## Measurements Summary: LVEDd: 4.92 cm LVESd: 4.13 cm IVSEd: 1.2 cm AO Root:2.9 cm LVPWd: 1.12 cm Contractility Score Global Left Ventricular Hypokinesis was noted. LV regional wall motion: (0-Not visualized 1-Normal 2-Hypokinesis 3-Akinesis 4-Dyskinesis 5-Aneurysm) Left Ventricle Peak E-wave: 1.1 Peak A-wave: 0.43 m/s E/A ratio: 2.58 m/s Volume [id number] LV length: 8.52 cm ml Volume [id number] ml LVOT diameter: 1.7 cm Normal sized left ventricle. Mild left ventricular hypertrophy. Visually estimated ejection fraction 20% +/- 5%. Severe left ventricular systolic dysfunction with abnormal systolic strain pattern. Restrictive filling pattern consistent with severely increased LV filling pressure (Grade III Diastolic dysfunction). No left ventricular masses or thrombi. Right Ventricle Diastolic dimension: 4.96 RV systolic pressure: 90.15 mmHg cm Severely dilated right ventricle. Abnormal TAPSE; abnormal right ventricular function. Left Atrium LA dimension: 4.6 cm LA volume:98.51 ml LA/Aorta: 1.59 Severely abnormal left atrial volume index 58 ml/m^2. Intact atrial septum. No atrial mass or thrombus. Right Atrium Normal sized right atrium. Intact atrial septum. No atrial mass or thrombus. Mitral Valve Deceleration time: Area PHT: 3.32 cm^2 Mean velocity: 121.63 msec P1/2t: 66.19 msec 0.79 m/s MR velocity: 5.13 Mean gradient: m/s 2.88 mmHg Area (continuity): Peak gradient: 1.35 cm^2 8.04 mmHg MR VTI: 207.26 cm Thickened mitral valve leaflets. Mitral valve annulus calcification. Moderate (2+) mitral regurgitation. PISA ERO: 0.3 cm2. No mitral stenosis. No masses or vegetations seen. Aortic Valve AI P1/2t: 406.25 msec Peak velocity: 1.17 m/s LVOT VTI: 20.6 cm Peak gradient: 5.44 mmHg Deceleration time: 1400.88 msec Three cusped aortic valve. Thickened free edges of the aortic valve leaflets. Nodular calcification of LCC noted. Slice artifact of LCC calcification noted in PLAX view. Mild aortic regurgitation. No aortic stenosis. No masses or vegetations seen. Tricuspid Valve TR velocity: 4.33 m/s TR gradient: 75.63603 mmHg Estimated RAP: 15 mmHg RVSP: 90.15 mmHg Structurally normal tricuspid valve. Moderate (2+) tricuspid regurgitation. Severe pulmonary hypertension. RVSP 90 mmHg. No tricuspid stenosis. No masses or vegetations seen. Pulmonic Valve Acceleration time: 110.37 msec PASP: 90.15 mmHg Structurally normal pulmonic valve. Moderate pulmonic regurgitation (2+). No pulmonic stenosis. No masses or vegetations seen. Great Vessels Aorta Aortic Root: 2.9 cm LVOT Diameter: 1.7 cm Visualized thoracic aorta is normal. Normal aortic root. No evidence of dissection. Dilated IVC with no inspiratory collapse. Elevated central venous pressure >15mmHg. Pericardium / Pleura No pericardial effusion. Other Definity ultrasound enhancing agent administered for endocardial border definition. XR chest 2 views Narrative: TWO-VIEW CHEST 06/24/2025 2:10 PM HISTORY: Pleural effusion. Postthoracentesis. COMPARISON: June 23, 2025 FINDINGS: The cardiac silhouette is mildly enlarged. The aortic contours are normal. The mediastinal and hilar structures are unremarkable. There is pulmonary vascular congestion with a moderate right pleural effusion. There is right lower lobe consolidation. There is no pneumothorax. Status post median sternotomy. Impression: No pneumothorax post thoracentesis. Pulmonary vascular congestion with right lower lobe consolidation and moderate right pleural effusion. Images reviewed, interpreted, and dictated by Dr. Nas Rebolledo. Transcribed by Kalyan Wisdom PA-C US THORACENTESIS LT Narrative: ULTRASOUND-GUIDED THORACENTESIS WITH TUBE INSERTION HISTORY: Left pleural effusion. ATTENDING RADIOLOGIST: Dr. Rebolledo. PHYSICIAN MEDICAL LEGAL INVESTIGATOR: Kalyan Wisdom PA-C. TECHNIQUE: Informed consent was obtained from the patient. The indications and complications were discussed prior to beginning the procedure. This included, but was not limited to, pain, bleeding, infection, and pneumothorax requiring chest tube placement. The left back was then prepped and draped in sterile fashion. 1% lidocaine was used for local anesthesia. Utilizing sonographic guidance, a standard thoracentesis needle and sheath were inserted into the pleural space. The needle was removed and the catheter was left in the pleural space. Approximately 300 mL of clear yellow pleural fluid was successfully removed without complication. The tube was subsequently removed from the pleural space. The patient tolerated the procedure well. Sample of the fluid was sent to lab for preordered studies. Impression: Technically successful sonographic-guided left thoracentesis with tube insertion as above. Images reviewed, interpreted, and dictated by Dr. Nas Rebolledo. 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 daily - Would recommend atorvastatin 80 mg p.o. nightly -Patient started on IV heparin, severe anemia, would recommend blood transfusion to keep hemoglobinabove 7 and preferably above 8 -Hemoglobin continue to trend down, would recommend to hold IV heparin. -Unfortunately, patient is very sick, severe anemia, she is not a candidate for coronary angiogram at this point -Would recommend palliative care consult to define goals of care - Prognosis is guarded at this point - Further recommendation pending clinical course. * Citlalli Wood RN - 06/24/2025 11:21 PM EDT During shift head to toe assessment, patient was found bleeding from the left arm fistula. Patient had gone through dialysis during the day. Dialysis nurse was notified. They came up and reinforced the lt arm fistula dressing. Bleeding was controlled. MD was notified as well. Pt was on a heparin drip and go ahead was given to pause the heparin drip whilst stat H and H as well as PTT were drawn. Vlad Waters was notified about the result of the HB 7.1 and PTT 37.3 following the blood draw. Nursewas asked to restart the heparin drip which was done. Vlad Waters was also notified about patient being in sinus bradycardia with heart rate between 48 -51. No new orders were given with regard to this. Nurse continues to monitor patient. * Nichole Pop RN - 06/24/2025 7:50 PM EDT 06/24/25 1445 Vitals Temp 98 ??F (36.7 ??C) Temp src Oral Pulse 54 Resp 16 BP (!) 198/81 MAP (mmHg) 123 SpO2 100 % O2 Flow Rate (L/min) 10 L/min O2 Device Heated Hi/Jeremy Nasal Cannula Pain Assessment Pain Assessment Scale 0-10 Pain Score Zero Pre-Hemodialysis Assessment HBs AG Date Last Drawn 06/24/25 HBs AG result Negative Machine [id number] Machine Conductivity 13.7 QC pH 7.4 Machine Temperature 37.1 Test Completed Yes Chlorine / Chloramine 1st Check Time 1415 Chlorine / Chloramine Result <0.1 Reverse Osmosis [id number] Alarm Test Passed Treatment Type UF and Hemodialysis Dialyzer F-180 Dialysate Na (mEq/L) Other (138) Dialysate K (mEq/L) 3 mEq/L Dialysate Ca (mEq/L) 2.5 mEq/L Dialysate HCO3 (mEq/L) 35 mEq/L During Hemodialysis Assessment Hemodialysis Status Initiated Ultrafiltration Status Initiated Prime Volume 250 Blood Flow Rate (mL/min) 400 mL/min Ultrafiltration Rate (mL/hr) 857 mL/hr Venous Pressure (mmHg) 134 Transmembrane Pressure (mmHg) 12 mmHg Arterial Pressure (mmHg) -143 UF Goal 3000 ml Dialysate Flow Rate (mL/min) 600 ml/min Remaining Time (min) 210 mins UF State On Arteriovenous Lines Secure Yes Patient arrived to unit post thorancentasis. Patient lethargic but able to state name. Patient hypertensive, bradycardic and on 10L [place]. Report received from Julia Lares RN. * Nichole Pop RN - 06/24/2025 7:45 PM EDT 06/24/25 1820 Vitals Temp 98 ??F (36.7 ??C) Temp src Oral Pulse 61 Resp 18 BP (!) 190/76 SpO2 100 % O2 Flow Rate (L/min) 10 L/min O2 Device Heated Hi/Jeremy Nasal Cannula Pain Assessment Pain Assessment Scale 0-10 Pain Score Zero Pre-Hemodialysis Assessment HBs AG Date Last Drawn 06/24/25 HBs AG result Negative During Hemodialysis Assessment Hemodialysis Status Completed Ultrafiltration Status Completed Prime Volume 250 Blood Flow Rate (mL/min) 400 mL/min Ultrafiltration Rate (mL/hr) 714 mL/hr UF Removed (mL) 2500 ml Dialysate Flow Rate (mL/min) 600 ml/min UF State On Arteriovenous Lines Secure Yes Post-Hemodialysis Assessment Total Blood Volume Processed 83.3 mL Duration of Treatment (minutes) 210 min Hemodialysis UF Net Intake (mL) 500 mL Hemodialysis UF Net Output (mL) 2000 mL Hemodialysis UF Gross (mL) 2500 mL Patient had extremely long bleed times due to heparin gtt and hypertension. Patient remained hypertensive throughout the treatment with bradycardia. Ufof 2.5L achieved. Report given to Julia Lares. * Mt Joseph RN - 06/24/2025 3:26 PM EDT 06/24/25 1521 Home Environment Type of Residence Private residence (Pt uses wheelchair or walker for safety and mobility. Pt has two sons, grandchildren for support at home.) Living Arrangements Family members Support Systems Family members Accessibilty Issues None Adherence Patient has moderate rate of compliance with treatment. Motivation Patient has moderate desire for learning/change. Affect Behavior Appropriate Prior/Regular Transportation Family Needs Assistance with Transportation No ADL Assessment Current Sensory Deficits Other (Comment) (Altered Mental Status) Patient's Vision Adequate to Safely Complete Daily Activities 1 Patient's Judgement Adequate to Safely Complete Daily Activities 1 Dressing Dependent (Pt has two sons, one and grandchildren to help pt. at home.) Current Home Care Services None Assistive Devices None Transition Needs Home or Post Acute Services In home services Type of Home/Self Half-Way with family care Type of Home Care Services None Does the patient have the ability to fill and receive their discharge medications? Yes Discharge Plan Discussed The discharge plan was discussed with patient. Discharge Plan Outcome Patient/family member services representative agrees with the discharge plan Discharge Barriers None Type of Assistive Devices Needed for Discharge None Patient Discharge Goal Home Mandated Reporting Not applicable Care Coordination Initial Assessment Home Environment Type of Residence: (P) Private residence (Pt uses wheelchair or walker for safety and mobility. Pt has two sons, grandchildren for support at home.) Living Arrangements: (P) Family members Support System: (P) Family members Home Caregiver: Accessibility Issues: (P) None Current Agency Name & Number: Patient returning to prior living situation? Compliance: (P) Patient has moderate rate of compliance with treatment. Motivation: (P) Patient has moderate desire for learning/change. Affect/Behavior: (P) Appropriate Prior/Regular Transportation: (P) Family Current Transportation Agency Information: Needs assistance with transportation:(P) No ADL Screen Current Sensory Deficits: (P) Other (Comment) (Altered Mental Status) Patient's Vision Adequate to Safely complete ADLs:(P) Yes Patient's Judgement Adequate to safely completed ADLs: (P) Yes Dressing: (P) Dependent (Pt has two sons, one and grandchildren to help pt. at home.) Current Home Care Services: Current Home Care Services: (P) None Assistive Devices(P) Yes Patient's Judgement Adequate to Safely Complete Daily Activities: (P) Yes Dressing: (P) Dependent (Pt has two sons, one and grandchildren to help pt. at home.) Current Lines, Tubes: Special/Community Services: Transition Needs Expected Discharge Date: Home or Post Acute Services Needed: (P) In home services Does the patient have the ability to fill and receive their discharge medications: (P) Yes Discharge plan discussed: (P) The discharge plan was discussed with patient. Discharge Barriers: (P) None Type of Assistive Devices Needed for Discharge: (P) None Patient Discharge Goal: (P) Home Mandated Reporting: (P) Not applicable PT/OT/PRENATAL TEACHER Recommendations PT Recommendations: OT Recommendations: PRENATAL TEACHER Recommendations: CM able to complete Initial Assessment with son Wade, Wade able to provide HIPAA validation, present, pt asleep. Son plans for pt to go back home once discharge, Wade alfaro will beproviding transport and [facility] Johnathan alfaro pt uses wheelchair for long distances and uses walker for shorter distances. Johnathan alfaro pt uses [facility] and currently does not have any financial issues, is able to pay for food, groceries, medications and copays for the patient. Pt continue to use Osmani Becker as PCP for her medical needs. Pt currently wearing Oxygen at 10 L via n/c and her baseline is Room air. Son agreeable to acquire oxygen should be deemed necessary for pt. CM will continue to follow pt and will help with oxygenation needs if needed upon discharge. Mt Joseph RN * Dajuan Banuelos MD - 06/24/2025 8:12 AM EDT Hospitalist Progress Note Date of Service: 06/24/2025 Subjective Brief Hospital Course: Patient is a 55 y.o. female admitted for dyspnea secondary to CHF exacerbation. Patient with history of possible malignancy per [facility] reports. Vitals reviewed and significant for patient being on 10 L of oxygen.. MAR reviewed. Significant overnight events significant bump in oxygen requirements.. At the time of this evaluation the patient was found bed. Still reporting worsening breathing at this time. Denies any chest pain. ROS: See HPI Objective Temp: [97.2 ??F (36.2 ??C)-97.7 ??F (36.5 ??C)] 97.5 ??F (36.4 ??C) Pulse: [55-102] 102 Resp: [16-20] 20 BP: (145-189)/(58-127) 177/113 SpO2 for the past 72 hrs (Last 3 readings): SpO2 06/24/25 1215 (!) 29 % 06/24/25 1200 98 % 06/24/25 1125 97 % Body mass index is 20.67 kg/m??. Physical Exam: General: Alert and interactive, in mild distress. Eyes: Conjunctiva appropriate, Sclera white HENT: Normocephalic, adequate hearing, moist oral mucosa Lungs: Increased work of breathing, diminished breath sounds bilateral bases Heart: Tachycardic Abdomen: Soft, non-tender, non-distended, active bowel sounds Neurologic: Awake, alert and oriented X 3, sensory intact, no focal deficits Psychiatric: Cooperative, appropriate mood and affect Intake/Output Summary (Last 24 hours) at 06/24/2025 1611 Last data filed at 06/24/2025 0600 Gross per 24 hour Intake 250 ml Output 1 ml Net 249 ml Diagnostic Findings I have reviewed and personally interpreted pertinent labs identifying: Results for orders placed or performed during the hospital encounter of 06/23/25 (from the past 24 hours) CBC with automated diff Status: Abnormal Collection Time: 06/23/25 8:26 PM Result Value Ref Range WBC 5.3 4.0 - 10.0 K/??L RBC 2.98 (L) 3.93 - 5.22 M/??L Hemoglobin 7.7 (L) 11.2 - 15.7 GM/DL Hematocrit 27.9 (L) 34.1 - 44.9 % MCV 94 79 - 95 fL MCH 25.8 25.6 - 32.2 pg MCHC 27.6 (L) 32.2 - 35.5 GM/DL RDW 19.8 (H) 11.7 - 14.4 % Platelets 71 (L) 140 - 375 K/CU MM MPV 11.5 9.4 - 12.3 fL % Neutros 70 34 - 71 % % Lymphs 20 19 - 52 % % Monos 7 5 - 13 % % Eos 2 1 - 6 % % Baso 1 0 - 1 % NRBC Absolute <0.01 0 - 0.012 K/ul # Neutros 3.67 1.56 - 6.13 K/??L # Lymphs 1.03 (L) 1.18 - 3.74 K/??L # Monos 0.35 0.24 - 0.86 K/??L # Eos 0.11 0.04 - 0.36 K/??L # Baso 0.06 0.01 - 0.08 K/??L Immature Granulocytes-Relative 0.80 (H) 0.01 - 0.43 % # IG 0.04 (H) 0.00 - 0.03 K/uL Comprehensive Metabolic Panel Status: Abnormal Collection Time: 06/23/25 8:26 PM Result Value Ref Range Sodium 141 136 - 145 meq/L Potassium 4.2 3.4 - 5.1 meq/L Chloride 101 98 - 112 meq/L CO2 24 22 - 29 meq/L Calcium 8.4 8.4 - 10.2 mg/dL Glucose 103 (H) 74 - 100 mg/dL BUN 38.1 (H) 9.8 - 20.1 mg/dL Creatinine 2.72 (H) 0.57 - 1.11 mg/dL BUN/Creatinine 14 8 - 20 eGFR (mL/min/1.73m2) 20 (L) >=60 mL/min/1.73m2 Albumin 2.7 (L) 3.5 - 5.0 g/dL Alkaline Phosphatase 228 (H) 40 - 150 U/L ALT 12 <=34 U/L AST 32 11 - 34 U/L Total Bilirubin 0.7 0.2 - 1.2 mg/dL Protein, Total 6.7 6.4 - 8.3 g/dL Globulin 4.0 2.5 - 4.1 g/dL Anion Gap 20 (H) 4 - 12 A/G Ratio 0.7 0.7 - 1.9 Osmolality Calc 290.6 mOsm/kg High Sensitivity Troponin I Status: Abnormal Collection Time: 06/23/25 8:26 PM Result Value Ref Range Troponin I High Sensitivity (pg/mL) 2,560.3 (HH) <=14 pg/mL CBC Scan Status: Abnormal Collection Time: 06/23/25 8:26 PM Result Value Ref Range Platelet Estimate Decreased (A) Adequate RBC Morphology abnormal (A) Normal Anisocytosis 1+ Hypochromia 2+ Poikilocytes 1+ ECG 12 lead Status: None (In process) Collection Time: 06/23/25 10:44 PM Result Value Ref Range VENTRICULAR RATE EKG/MIN 68 BPM ATRIAL RATE (MCT) 68 BPM [place] Interval 140 ms QRS-INTERVAL (MSEC) 116 ms QT Interval 440 ms QTC Interval 467 ms P [place] 89 degrees R AXIS (MCT) 118 degrees T Wave [place] -57 degrees [place] Diagnosis Normal sinus rhythm Right axis deviation Pulmonary disease pattern ST & T wave abnormality, consider inferior ischemia Abnormal ECG When compared with ECG of 23-JUN-2025 22:43, ST no longer depressed in Inferior leads T wave inversion now evident in Inferior leads PTT Heparin Protocol Status: Abnormal Collection Time: 06/23/25 11:27 PM Result Value Ref Range PTT Heparin 30.9 (L) 45 - 65 seconds Prothrombin time/INR Status: Normal Collection Time: 06/23/25 11:27 PM Result Value Ref Range Protime 11.4 9.0 - 12.0 seconds INR 1.03 0.80 - 1.10 Glucose, Nova Meter Status: None Collection Time: 06/24/25 4:57 AM Result Value Ref Range POC-GLUCOSE 108 70 - 110 mg/dL [employer] [id number] High Sensitivity Troponin I Status: Abnormal Collection Time: 06/24/25 6:32 AM Result Value Ref Range Troponin I High Sensitivity (pg/mL) 2,424.1 (HH) <=14 pg/mL PTT Heparin Protocol Status: Abnormal Collection Time: 06/24/25 6:32 AM Result Value Ref Range PTT Heparin 44.1 (L) 45 - 65 seconds CBC with automated diff Status: Abnormal Collection Time: 06/24/25 6:32 AM Result Value Ref Range WBC 4.6 4.0 - 10.0 K/??L RBC 3.33 (L) 3.93 - 5.22 M/??L Hemoglobin 8.6 (L) 11.2 - 15.7 GM/DL Hematocrit 31.2 (L) 34.1 - 44.9 % MCV 94 79 - 95 fL MCH 25.8 25.6 - 32.2 pg MCHC 27.6 (L) 32.2 - 35.5 GM/DL RDW 20.2 (H) 11.7 - 14.4 % Platelets 67 (L) 140 - 375 K/CU MM MPV % Neutros 70 34 - 71 % % Lymphs 20 19 - 52 % % Monos 6 5 - 13 % % Eos 2 1 - 6 % % Baso 1 0 - 1 % NRBC Absolute <0.01 0 - 0.012 K/ul # Neutros 3.20 1.56 - 6.13 K/??L # Lymphs 0.93 (L) 1.18 - 3.74 K/??L # Monos 0.27 0.24 - 0.86 K/??L # Eos 0.10 0.04 - 0.36 K/??L # Baso 0.04 0.01 - 0.08 K/??L Immature Granulocytes-Relative 0.70 (H) 0.01 - 0.43 % # IG 0.03 0.00 - 0.03 K/uL CBC Scan Status: Abnormal Collection Time: 06/24/25 6:32 AM Result Value Ref Range Platelet Estimate Decreased (A) Adequate RBC Morphology abnormal (A) Normal Anisocytosis 2+ Hypochromia 2+ Polychromasia 1+ Macrocytes 1+ Comprehensive Metabolic Panel Status: Abnormal Collection Time: 06/24/25 6:33 AM Result Value Ref Range Sodium 142 136 - 145 meq/L Potassium 4.4 3.4 - 5.1 meq/L Chloride 101 98 - 112 meq/L CO2 25 22 - 29 meq/L Calcium 8.7 8.4 - 10.2 mg/dL Glucose 108 (H) 74 - 100 mg/dL BUN 39.6 (H) 9.8 - 20.1 mg/dL Creatinine 2.74 (H) 0.57 - 1.11 mg/dL BUN/Creatinine 14 8 - 20 eGFR (mL/min/1.73m2) 20 (L) >=60 mL/min/1.73m2 Albumin 2.9 (L) 3.5 - 5.0 g/dL Alkaline Phosphatase 247 (H) 40 - 150 U/L ALT 13 <=34 U/L AST 38 (H) 11 - 34 U/L Total Bilirubin 0.7 0.2 - 1.2 mg/dL Protein, Total 7.3 6.4 - 8.3 g/dL Globulin 4.4 (H) 2.5 - 4.1 g/dL Anion Gap 20 (H) 4 - 12 A/G Ratio 0.7 0.7 - 1.9 Osmolality Calc 293.3 mOsm/kg PROBNP Status: Abnormal Collection Time: 06/24/25 6:33 AM Result Value Ref Range ProBNP (pg/mL) >70,000 (H) 16 - 334 pg/mL Hepatitis panel, acute Status: Normal Collection Time: 06/24/25 6:33 AM Result Value Ref Range Hep A IgM Nonreactive Nonreactive Hep B C IgM Nonreactive Nonreactive Hepatitis B surface antigen Nonreactive Nonreactive Hepatitis C Ab Nonreactive Nonreactive Glucose, Nova Meter Status: Abnormal Collection Time: 06/24/25 12:13 PM Result Value Ref Range POC-GLUCOSE 124 (H) 70 - 110 mg/dL [employer] [id number] PTT Heparin Protocol Status: Normal Collection Time: 06/24/25 12:42 PM Result Value Ref Range PTT Heparin 54.9 45 - 65 seconds I have reviewed and personally interpreted imaging identifying: XR chest 2 views Narrative: TWO-VIEW CHEST 06/24/2025 2:10 PM HISTORY: Pleural effusion. Postthoracentesis. COMPARISON: June 23, 2025 FINDINGS: The cardiac silhouette is mildly enlarged. The aortic contours are normal. The mediastinal and hilar structures are unremarkable. There is pulmonary vascular congestion with a moderate right pleural effusion. There is right lower lobe consolidation. There is no pneumothorax. Status post median sternotomy. Impression: No pneumothorax post thoracentesis. Pulmonary vascular congestion with right lower lobe consolidation and moderate right pleural effusion. Images reviewed, interpreted, and dictated by Dr. Nas Rebolledo. Transcribed by Kalyan Wisdom PA-C US THORACENTESIS LT Narrative: ULTRASOUND-GUIDED THORACENTESIS WITH TUBE INSERTION HISTORY: Left pleural effusion. ATTENDING RADIOLOGIST: Dr. Rebolledo. PHYSICIAN MEDICAL LEGAL INVESTIGATOR: Kalyan Wisdom PA-C. TECHNIQUE: Informed consent was obtained from the patient. The indications and complications were discussed prior to beginning the procedure. This included, but was not limited to, pain, bleeding, infection, and pneumothorax requiring chest tube placement. The left back was then prepped and draped in sterile fashion. 1% lidocaine was used for local anesthesia. Utilizing sonographic guidance, a standard thoracentesis needle and sheath were inserted into the pleural space. The needle was removed and the catheter was left in the pleural space. Approximately 300 mL of clear yellow pleural fluid was successfully removed without complication. The tube was subsequently removed from the pleural space. The patient tolerated the procedure well. Sample of the fluid was sent to lab for preordered studies. Impression: Technically successful sonographic-guided left thoracentesis with tube insertion as above. Images reviewed, interpreted, and dictated by Dr. Nas Rebolledo. Transcribed by Kalyan Wisdom PA-C I have reviewed and personally interpreted ECG identifying: I have reviewed and discussed the patient's care with family: I have reviewed and discussed the patient's care with reporting process consultant: Medications: aspirin 81 mg oral Daily 81 mg at 06/24/25904 atorvastatin 40 mg oral Every Night budesonide 0.5 mg nebulization 2 times daily 0.5 mg at 06/23/252044 carvediloL 12.5 mg oral BID w/breakfast & dinner 12.5 mg at 06/24/25903 hydrALAZINE 20 mg intravenous TID 20 mg at 06/24/25903 insulin lispro 0-12 Units subcutaneous 4x Daily AC levothyroxine 88 mcg oral QAM (00) 88 mcg at 06/24/25 06 pantoprazole 40 mg oral Daily 40 mg at 06/24/25904 Current Facility-Administered Medications Medication Dose Route Frequency Provider Last Rate Last Admin acetaminophen (TYLENOL) tablet 1,000 mg 1,000 mg oral Q6H PRN Dajuan Banuelos MD albumin human 25 % IV 25 g 25 g intravenous PRN Blaine Moreno MD aspirin EC tablet 81 mg 81 mg oral Daily Vlad Waters PA-C 81 mg at 06/24/25904 atorvastatin (LIPITOR) tablet 40 mg 40 mg oral Every Night Vlad Waters PA-C budesonide (PULMICORT) nebulizer suspension 0.5 mg 0.5 mg nebulization 2 times daily Vlad Waters PA-C 0.5 mg at 06/23/252044 carvediloL (COREG) tablet 12.5 mg 12.5 mg oral BID w/breakfast & dinner Vlad Waters PA-C 12.5mg at 06/24/25903 cloNIDine (CATAPRES) tablet 0.1 mg 0.1 mg oral Q8H PRN Vlad Waters PA-C 0.1 mg at 06/24/25 121 dextrose 50% (D50W) injection 25 g 25 g intravenous Q15 Min PRN Vlad Waters PA-C diphenhydrAMINE (BENADRYL) capsule 25 mg 25 mg oral Every Night PRN Dajuan Banuelos MD glucagon injection 1 mg 1 mg intraMUSCULAR Q15 Min PRN Vlad Waters PA-C glucose chew tab 16 g 16 g oral Q15 Min PRN Vlad Waters PA-C heparin bolus from bag 3,540 Units 60 Units/kg intravenous Q6H PRN Vlad Waters PA-C Or heparin bolus from bag 2,360 Units 40 Units/kg intravenous Q6H PRN Vlad Waters PA-C 2,360 Units at 06/24/25 0743 heparin infusion 25,000 units in sodium chloride 0.45% (NS) 250 mL (100 units/mL) 2-24 Units/kg/hr intravenous Titrated Vlad Waters PA-C 1.2 mL/hr at 06/24/25 0739 2 Units/kg/hr at 06/24/25 0739 hydrALAZINE (APRESOLINE) injection 20 mg 20 mg intravenous TID GARCIA Villagran 20 mg at 904 insulin lispro (HUMALOG, ADMELOG) injection 0-12 Units 0-12 Units subcutaneous 4x Daily AC Vlad Waters PA-C ipratropium-albuteroL (DUO-NEB) 0.5 mg-3 mg(2.5 mg base)/3 mL nebulizer solution 3 mL 3 mL nebulization Q6H PRN Vlad Waters PA-C levothyroxine (SYNTHROID) tablet 88 mcg 88 mcg oral QAM (0600) GARCIA Villagran 88 mcg at 06/24/25 0613 LORazepam (ATIVAN) tablet 0.5 mg 0.5 mg oral Q8H PRN Dajuan Banuelos MD 0.5 mg at 06/24/25 0951 magnesium sulfate IVPB 2 g in sterile water 50 mL (premix) 2 g intravenous Daily PRN Vlad Waters PA-C magnesium sulfate IVPB 2 g in sterile water 50 mL (premix) 2 g intravenous BID PRN Vlad Waters PA-C melatonin tablet 5 mg 5 mg oral Every Night PRN Vlad Waters PA-C morphine injection 2 mg 2 mg intravenous Q4H PRN Vlad Waters PA-C naloxone (NARCAN) injection 0.2 mg 0.2 mg intravenous Q2 Min PRN Dajuan Banuelos MD nitroglycerin (NITROSTAT) tablet 0.4 mg 0.4 mg sublingual Q5 Min PRN Vlad Waters PA-C ondansetron (ZOFRAN-ODT) disintegrating tablet 4 mg 4 mg oral Q8H PRN Vlad Waters PA-C Or ondansetron (ZOFRAN) injection 4 mg 4 mg intravenous Q8H PRN Vlad Waters PA-C oxyCODONE (ROXICODONE) immediate release tablet 10 mg 10 mg oral Q4H PRN Vlad Waters PA-C 10 mg at 06/24/25 0650 pantoprazole (PROTONIX) EC tablet 40 mg 40 mg oral Daily Vlad Waters PA-C 40 mg at 06/24/25 0905 sodium chloride 0.9% (NS) bolus 250 mL intravenous Daily PRN Blaine Moreno MD sodium chloride flush 10 mL 10 mL intravenous PRN Dajuan Banuelos MD Assessment and Plan CHF with acute exacerbation/bilateral pleural effusions Medical history reviewed. Significant for ESRD -Previous echocardiogram 06/04/2024 showed estimated ejection fraction of 55% Labs and imaging at outside facility were as follows: -CT chest without contrast read moderate pulmonary edema/congestive heart failure. Moderate right pleural effusion. -proBNP elevated at 244,000; patient's baseline reportedly around 42,000 helping to rule in fluid overload - White count normal at 4.8; helping to rule out severe infection -H&H low at 7.7/27.9; consistent with ESRD PLAN -CHF order set utilized - Consultation to cardiology, appreciate assistance. Defer need for ischemic evaluation to Cardiology input. -Consultation to interventional radiology for assessment of thoracentesis, assistance appreciated -Defered initiation of loop diuretics due to ESRD on dialysis -Echocardiogram ordered. -Avoid fluid bolusing/infusions at this time. -Strict I/O's; limit fluid intake to 1500cc daily from all sources. -Continuous telemetry monitoring. NSTEMI/. Type 2 [place] -Troponin elevated at 2560.3 (patient does have a history of ESRD) -EKG showed normal sinus rhythm Plan -Consult to Cardiology ordered, appreciate assistance. -Start Heparin IV drip per [facility] protocol. - Ordered aspirin 81 mg daily and atorvastatin 40 mg nightly - Troponin ordered in a.m. for further evaluation -Pain control with IV morphine; Narcan for opiate reversal. -Nitroglycerin sublingual for angina as needed every 5 minutes for 3 doses. -Consider Nitroglycerin IV drip for severe angina if BP stable. -Oxygen supplementation as needed to maintain SpO2 greater than 92. -Monitor for chest pain. -Continuous telemetry monitoring. -Echocardiogram in AM as above. -Defer utility of LHC and cardiac stress testing to Cardiology. -Continue to monitor vital signs per unit protocol ESRD on dialysis; Tuesday schedule -Creatinine elevated at 2.72 with eGFR of 20 -This diagnosis without intervention would result in Plan -Consultation to nephrology, assistance appreciated -Avoid nephrotoxic agents. -Check electrolytes and replete as needed. -Monitor renal function. -Renal dosing of medications. Diabetes -Glucose normal at 103 PLAN -SSI and hypoglycemia protocol -Consistent carbohydrate heart healthy diet order when not n.p.o. -Complicates all aspects of care. Diet: Orders Placed This Encounter Procedures NPO Except: Ice Chips, Sips with meds VTE: Heparin infusion Dispostition: Mar Waldron is a 55 y.o. female who is admitted for dyspnea secondary to congestive heart failure versus fluid overloaded status secondary to underlying end-stage renal disease. Patient with known history of ESRD however, troponin levels elevated possibly concerning for underlying NSTEMI. Barriers to Discharge: Improvement of breathing Signed: Dajuan Banuelos MD 06/24/2025 8:12 AM * Velma Brantley RN - 06/24/2025 6:50 AM EDT Patient went for lt thoracentesis, X ray and Dialysis and returned to the shift at 1905. documented in this encounter H&P Notes * Vlad Waters PA-C - 06/23/2025 6:42 PM EDT [facility] Patient Name: Mar Waldron : 1970 Date: 06/24/2025 PCP: Osmani Becker MD Date of Admission: 06/23/2025 Chief Complaint: Shortness of Breath History of Present Illness Mar Waldron is a 55 y.o. female with a history of arthritis, CHF, CKD, COPD, hypertension, and hypothyroidism presents to [facility] in [place], [place] for further evaluation andmanagement of shortness of breath. Chart review reveals patient had recent discharge on 06/10/2025 for similar complaints. Patient states starting day prior to admission patient began to have increased shortness of breath. Patient states she missed dialysis on Tuesday due to a family member passing away. Patient states however she did receive dialysis day prior to admission. Patient states that hershortness of breath worsened after dialysis and believes that it is due to a pleural effusion likebefore . Patient sought evaluation at [facility] where patient was found to be in acute CHF exacerbation, NSTEMI, and with moderate pleural effusion. Patient was subsequently transferred to [facility] for nephrology coverage and higher level of care. Patient is being admitted for continued monitoring, evaluation, and treatment of acute CHF exacerbation, NSTEMI, and pleural effusion, with consultation to cardiology and nephrology. Patient is resting at time of admission, in no acute distress. All patient questions were answered at this time. Patient is agreeable to admission and plan. Past Medical History: Past Medical History: Diagnosis Date Arthritis Cancer (HCC) left kidney CHF (congestive heart failure) (HCC) Chronic kidney disease requiring chronic dialysis (HCC) COPD (chronic obstructive pulmonary disease) (HCC) Hypertension Murmur Thyroid disease Past Surgical History: Past Surgical History: Procedure Laterality Date APPENDECTOMY CARDIAC SURGERY CATARACT EXTRACTION EYE SURGERY GALLBLADDER SURGERY HYSTERECTOMY left arm fistula Left triple bypass 2012 Social History: Social History Tobacco Use Smoking status: Every Day Current packs/day: 1.00 Types: Cigarettes Smokeless tobacco: Never Vaping Use Vaping status: Never Used Substance Use Topics Alcohol use: Never Drug use: Yes Types: Marijuana Family History: No family history on file. Documented Allergies: Allergies Allergen Reactions Basaglar Kwikpen U-100 Insulin [Insulin Glargine] Other (See Comments) NUMBNESS Lisinopril Other (See Comments) Cough Documented [employer] Medications: Medications Prior to Admission Medication Sig Dispense Refill Last Dose/Taking acetaZOLAMIDE (DIAMOX) 250 MG tablet Take 1 tablet (250 mg total) by mouth 2 (two) times daily. aspirin 325 MG tablet Take 1 tablet (325 mg total) by mouth daily. carvediloL (COREG) 25 MG tablet Take 1 tablet (25 mg total) by mouth 2 (two) times daily with breakfast and dinner. cloNIDine HCL (CATAPRES) 0.1 MG tablet Take 1 tablet (0.1 mg total) by mouth 2 (two) times daily asneeded (sys greater than 180). clopidogreL (PLAVIX) 75 mg tablet Take 1 tablet (75 mg total) by mouth daily. doxazosin (CARDURA) 2 MG tablet Take 1 tablet (2 mg total) by mouth 2 (two) times daily. ezetimibe (ZETIA) 10 mg tablet Take 1 tablet (10 mg total) by mouth nightly. hydrALAZINE (APRESOLINE) 50 MG tablet Take 1.5 tablets (75 mg total) by mouth 4 (four) times daily. isosorbide mononitrate (IMDUR) 60 MG 24 hr tablet Take 2 tablets (120 mg total) by mouth daily. levothyroxine (SYNTHROID, LEVOTHROID) 75 MCG tablet Take 1 tablet (75 mcg total) by mouth Every morning on an empty stomach. oxyCODONE-acetaminophen (PERCOCET) 10-325 mg per tablet Take 1 tablet by mouth every 6 (six) hours as needed for pain. pantoprazole (PROTONIX) 20 MG tablet Take 1 tablet (20 mg total) by mouth daily. valsartan (DIOVAN) 160 MG tablet Take 1 tablet (160 mg total) by mouth 2 (two) times daily. Review of Systems A 14 point review of systems was obtained and is noncontributory except as noted below. Available past medical, social and family history reviewed. Review of Systems Constitutional: Negative for chills, fever and malaise/fatigue. Respiratory: Positive for shortness of breath. Cardiovascular: Negative for chest pain. Gastrointestinal: Negative for abdominal pain, diarrhea, nausea and vomiting. Neurological: Negative for weakness and headaches. Objective Vitals: Temp: [97.2 ??F (36.2 ??C)-97.5 ??F (36.4 ??C)] 97.3 ??F (36.3 ??C) Pulse: [63-74] 63 Resp: [16-18] 18 BP: (148-189)/(70-82) 148/82 Intake/Output: No intake or output data in the 24 hours ending 10/06/25 0255 Physical Exam Vitals reviewed. Constitutional: General: She is not in acute distress. Appearance: Normal appearance. She is normal weight. She is not ill-appearing, toxic-appearing or diaphoretic. HENT: Head: Normocephalic and atraumatic. Cardiovascular: Rate and Rhythm: Normal rate and regular rhythm. Pulses: Normal pulses. Heart sounds: Normal heart sounds. Pulmonary: Effort: Pulmonary effort is normal. No respiratory distress. Breath sounds: No stridor. Wheezing present. No rhonchi or rales. Chest: Chest wall: No tenderness. Abdominal: General: Bowel sounds are normal. There is no distension. Palpations: Abdomen is soft. Tenderness: There is no abdominal tenderness. There is no guarding. Musculoskeletal: Cervical back: Normal range of motion. Skin: General: Skin is warm and dry. Neurological: General: No focal deficit present. Mental Status: She is alert and oriented to person, place, and time. Psychiatric: Mood and Affect: Mood normal. Thought Content: Thought content normal. Recent Labs: Results for orders placed or performed during the hospital encounter of 06/23/25 (from the past 24 hours) CBC with automated diff Status: Abnormal Collection Time: 06/23/25 8:26 PM Result Value Ref Range WBC 5.3 4.0 - 10.0 K/??L RBC 2.98 (L) 3.93 - 5.22 M/??L Hemoglobin 7.7 (L) 11.2 - 15.7 GM/DL Hematocrit 27.9 (L) 34.1 - 44.9 % MCV 94 79 - 95 fL MCH 25.8 25.6 - 32.2 pg MCHC 27.6 (L) 32.2 - 35.5 GM/DL RDW 19.8 (H) 11.7 - 14.4 % Platelets 71 (L) 140 - 375 K/CU MM MPV 11.5 9.4 - 12.3 fL % Neutros 70 34 - 71 % % Lymphs 20 19 - 52 % % Monos 7 5 - 13 % % Eos 2 1 - 6 % % Baso 1 0 - 1 % NRBC Absolute <0.01 0 - 0.012 K/ul # Neutros 3.67 1.56 - 6.13 K/??L # Lymphs 1.03 (L) 1.18 - 3.74 K/??L # Monos 0.35 0.24 - 0.86 K/??L # Eos 0.11 0.04 - 0.36 K/??L # Baso 0.06 0.01 - 0.08 K/??L Immature Granulocytes-Relative 0.80 (H) 0.01 - 0.43 % # IG 0.04 (H) 0.00 - 0.03 K/uL Comprehensive Metabolic Panel Status: Abnormal Collection Time: 06/23/25 8:26 PM Result Value Ref Range Sodium 141 136 - 145 meq/L Potassium 4.2 3.4 - 5.1 meq/L Chloride 101 98 - 112 meq/L CO2 24 22 - 29 meq/L Calcium 8.4 8.4 - 10.2 mg/dL Glucose 103 (H) 74 - 100 mg/dL BUN 38.1 (H) 9.8 - 20.1 mg/dL Creatinine 2.72 (H) 0.57 - 1.11 mg/dL BUN/Creatinine 14 8 - 20 eGFR (mL/min/1.73m2) 20 (L) >=60 mL/min/1.73m2 Albumin 2.7 (L) 3.5 - 5.0 g/dL Alkaline Phosphatase 228 (H) 40 - 150 U/L ALT 12 <=34 U/L AST 32 11 - 34 U/L Total Bilirubin 0.7 0.2 - 1.2 mg/dL Protein, Total 6.7 6.4 - 8.3 g/dL Globulin 4.0 2.5 - 4.1 g/dL Anion Gap 20 (H) 4 - 12 A/G Ratio 0.7 0.7 - 1.9 Osmolality Calc 290.6 mOsm/kg High Sensitivity Troponin I Status: Abnormal Collection Time: 06/23/25 8:26 PM Result Value Ref Range Troponin I High Sensitivity (pg/mL) 2,560.3 (HH) <=14 pg/mL CBC Scan Status: Abnormal Collection Time: 06/23/25 8:26 PM Result Value Ref Range Platelet Estimate Decreased (A) Adequate RBC Morphology abnormal (A) Normal Anisocytosis 1+ Hypochromia 2+ Poikilocytes 1+ ECG 12 lead Status: None (In process) Collection Time: 06/23/25 10:44 PM Result Value Ref Range VENTRICULAR RATE EKG/MIN 68 BPM ATRIAL RATE (MCT) 68 BPM [place] Interval 140 ms QRS-INTERVAL (MSEC) 116 ms QT Interval 440 ms QTC Interval 467 ms P [place] 89 degrees R AXIS (MCT) 118 degrees T Wave [place] -57 degrees [place] Diagnosis Normal sinus rhythm Right axis deviation Pulmonary disease pattern ST & T wave abnormality, consider inferior ischemia Abnormal ECG When compared with ECG of 23-JUN-2025 22:43, ST no longer depressed in Inferior leads T wave inversion now evident in Inferior leads PTT Heparin Protocol Status: Abnormal Collection Time: 06/23/25 11:27 PM Result Value Ref Range PTT Heparin 30.9 (L) 45 - 65 seconds Prothrombin time/INR Status: Normal Collection Time: 06/23/25 11:27 PM Result Value Ref Range Protime 11.4 9.0 - 12.0 seconds INR 1.03 0.80 - 1.10 Microbiology Results (last 7 days) No results found for the last 168 hours. Radiology: Radiology Results (last 3 days) Procedure Component Value Units Date/Time XR chest AP portable [[id number]] Collected: 06/23/252330 Order Status: Completed Updated: 06/23/252332 Narrative: FINAL REPORT TECHNIQUE: null CLINICAL HISTORY: Shortness of breath COMPARISON: null FINDINGS: 1 view chest x-ray Comparison: 06/17/2024 Findings: Cardiomegaly with diffuse bilateral consolidation. Bilateral interstitial and vascular prominence. Bilateral pleural effusions also noted. Probable pulmonary edema, pneumonia not excluded. Sternotomy. No acute bony abnormality. Impression: Impression: Probable acute pulmonary edema pattern Authenticated and All Documented Medications: Scheduled Meds: aspirin 81 mg oral Daily atorvastatin 40 mg oral Every Night budesonide 0.5 mg nebulization 2 times daily 0.5 mg at 06/23/252044 carvediloL 12.5 mg oral BID w/breakfast & dinner 12.5 mg at 06/23/252032 hydrALAZINE 20 mg intravenous TID 20 mg at 06/23/252032 insulin lispro 0-12 Units subcutaneous 4x Daily AC levothyroxine 88 mcg oral QAM (0600) pantoprazole 40 mg oral Daily 40 mg at 06/23/252032 Continuous Infusions: Current Facility-Administered Medications Medication Dose Route Frequency Provider Last Rate Last Admin acetaminophen (TYLENOL) tablet 1,000 mg 1,000 mg oral Q6H PRN Dajuan Banuelos MD aspirin EC tablet 81 mg 81 mg oral Daily Vlad Waters PA-C atorvastatin (LIPITOR) tablet 40 mg 40 mg oral Every Night Vlad Waters PA-C budesonide (PULMICORT) nebulizer suspension 0.5 mg 0.5 mg nebulization 2 times daily Vlad Waters PA-C 0.5 mg at 06/23/252044 carvediloL (COREG) tablet 12.5 mg 12.5 mg oral BID w/breakfast & dinner Vlad Waters PA-C 12.5mg at 06/23/252032 cloNIDine (CATAPRES) tablet 0.1 mg 0.1 mg oral Q8H PRN Vlad Waters PA-C dextrose 50% (D50W) injection 25 g 25 g intravenous Q15 Min PRN Vlad Waters PA-C diphenhydrAMINE (BENADRYL) capsule 25 mg 25 mg oral Every Night PRN Dajuan Banuelos MD glucagon injection 1 mg 1 mg intraMUSCULAR Q15 Min PRN Vlad Waters PA-C glucose chew tab 16 g 16 g oral Q15 Min PRN Vlad Waters PA-C heparin bolus from bag 3,540 Units 60 Units/kg intravenous Q6H PRN Vlad Waters PA-C Or heparin bolus from bag 2,360 Units 40 Units/kg intravenous Q6H PRN Vlad Waters PA-C heparin infusion 25,000 units in sodium chloride 0.45% (NS) 250 mL (100 units/mL) 2-24 Units/kg/hr intravenous Titrated Vlad Waters PA-C 7.1 mL/hr at 06/24/25 0054 12 Units/kg/hr at 06/24/25 0054 hydrALAZINE (APRESOLINE) injection 20 mg 20 mg intravenous TID GARCIA Villagran 20 mg at insulin lispro (HUMALOG, ADMELOG) injection 0-12 Units 0-12 Units subcutaneous 4x Daily AC Vlad Waters PA-C ipratropium-albuteroL (DUO-NEB) 0.5 mg-3 mg(2.5 mg base)/3 mL nebulizer solution 3 mL 3 mL nebulization Q6H PRN Vlad Waters PA-C levothyroxine (SYNTHROID) tablet 88 mcg 88 mcg oral QAM (0600) Vlad Waters PA-C LORazepam (ATIVAN) tablet 0.5 mg 0.5 mg oral Q8H PRN Dajuan Banuelos MD 0.5 mg at 06/23/252152 magnesium sulfate IVPB 2 g in sterile water 50 mL (premix) 2 g intravenous Daily PRN Vlad Waters PA-C magnesium sulfate IVPB 2 g in sterile water 50 mL (premix) 2 g intravenous BID PRN Vlad Waters PA-C melatonin tablet 5 mg 5 mg oral Every Night PRN Vlad Waters PA-C morphine injection 2 mg 2 mg intravenous Q4H PRN Vlad Waters PA-C naloxone (NARCAN) injection 0.2 mg 0.2 mg intravenous Q2 Min PRN Dajuan Banuelos MD nitroglycerin (NITROSTAT) tablet 0.4 mg 0.4 mg sublingual Q5 Min PRN Vlad Waters PA-C ondansetron (ZOFRAN-ODT) disintegrating tablet 4 mg 4 mg oral Q8H PRN Vlad Waters PA-C Or ondansetron (ZOFRAN) injection 4 mg 4 mg intravenous Q8H PRN Vlad Waters PA-C oxyCODONE (ROXICODONE) immediate release tablet 10 mg 10 mg oral Q4H PRN Vlad Waters PA-C 10 mg at 06/23/252032 pantoprazole (PROTONIX) EC tablet 40 mg 40 mg oral Daily Vlad Waters PA-C 40 mg at 06/23/252032 sodium chloride flush 10 mL 10 mL intravenous PRN Dajuan Banuelos MD PRN Meds: @MEDSPRN@ Assessment and Plan Principal Problem: Fluid overload CHF with acute exacerbation Pleural effusion Shortness of breath -Previous echocardiogram 06/04/2024 showed estimated ejection fraction of 55% Labs and imaging at outside facility were as follows: -CT chest without contrast read moderate pulmonary edema/congestive heart failure. Moderate right pleural effusion. -proBNP elevated at 244,000; patient's baseline reportedly around 42,000 helping to rule in fluid overload - White count normal at 4.8; helping to rule out severe infection -H&H low at 7.7/27.9; consistent with ESRD -Sodium normal at 141, potassium normal at 4.2 -After reviewing this patient's presentation, labs, imaging, and medical record and discussion withsupervising physician, we have to decided to admit them. They will require inpatient admission requiring >48hrs for work up and stabilization of their condition. -This diagnosis without intervention would likely result in loss of bodily function and probable . PLAN -CHF order set utilized - Consultation to cardiology, appreciate assistance. Defer need for ischemic evaluation to Cardiology input. -Consultation to interventional radiology for assessment of thoracentesis, assistance appreciated -Defered initiation of loop diuretics due to ESRD on dialysis -Echocardiogram ordered. -Consider CT Chest pending clinical course. -Avoid fluid bolusing/infusions at this time. -Strict I/O's; limit fluid intake to 1500cc daily from all sources. -Continuous telemetry monitoring. NSTEMI -Troponin elevated at 2560.3 -EKG showed normal sinus rhythm -This diagnosis without intervention would result in loss of bodily function and probable Plan -Consult to Cardiology ordered, appreciate assistance. -EKG ordered STAT; independently interpreted by me showing no obvious ST elevation, depression or contiguous T wave inversions at this time -Start Heparin IV drip per ACS protocol. - Ordered aspirin 81 mg daily and atorvastatin 40 mg nightly - Troponin ordered in a.m. for further evaluation -Pain control with IV morphine; Narcan for opiate reversal. -Nitroglycerin sublingual for angina as needed every 5 minutes for 3 doses. -Consider Nitroglycerin IV drip for severe angina if BP stable. -Oxygen supplementation as needed to maintain SpO2 greater than 92. -Monitor for chest pain. -Continuous telemetry monitoring. -Echocardiogram in AM as above. -Defer utility of LHC and cardiac stress testing to Cardiology. -Continue to monitor vital signs per unit protocol ESRD on dialysis; Tuesday schedule -Creatinine elevated at 2.72 with eGFR of 20 -This diagnosis without intervention would result in Plan -Consultation to nephrology, assistance appreciated -Avoid nephrotoxic agents. -Check electrolytes and replete as needed. -Monitor renal function. -Renal dosing of medications. Diabetes -Glucose normal at 103 PLAN -SSI and hypoglycemia protocol -Consistent carbohydrate heart healthy diet order when not n.p.o. -Complicates all aspects of care. -Laboratory work and pertinent imaging results independently reviewed as noted in HPI. -Continue to monitor electrolytes with AM metabolic panel and replete as appropriate. -Monitor WBC count to assess for developing / worsening infection and hemoglobin with AM CBC. -Intermittent BP and pulse oximetry monitoring per unit parameters. -Continue appropriate home medications for chronic problems as ordered below. -Evaluated 06/23/2025, 6:42 PM I, Vlad Waters, have personally reviewed pertinent laboratory, EKG, and imaging results, as well as documentation in the patient's EMR and discussed with supervising physician as necessary. Laboratory and imaging orders per the above plan have been reviewed and addressed, please see orders below. Home medications have been reviewed and restarted if appropriate. Patient's case, assessment, and plan have been discussed on this date with patient and RN. Glycemic control: Goal BS between 110-180 with SSI and hypoglycemia protocol Nutrition: Orders Placed This Encounter Procedures NPO Except: Ice Chips, Sips with meds GI prophylaxis: Protonix VTE prophylaxis: Heparin infusion per ACS protocol AM orders including labs/radiology/procedures placed. Code Status: Current Code Status Full code Disposition: Admit Prognosis: TBD Signed: Vlad Waters PA-C 06/23/2025, 6:42 PM Active Orders Microbiology Body fluid cell count with differential Frequency: Tomorrow AM Number of Occurrences: 1 Occurrences Body Fluid Culture + Gram Stain Frequency: Tomorrow AM Number of Occurrences: 1 Occurrences Lactate dehydrogenase (LDH), body fluid Frequency: Tomorrow AM Number of Occurrences: 1 Occurrences Imaging IR REQUEST - MISCELLANEOUS Frequency: Once Number of Occurrences: 1 Occurrences Lab CBC - Hemogram ([facility]) Frequency: AM Draw Number of Occurrences: 1 Occurrences CBC with automated diff Frequency: Daily Number of Occurrences: 3 Days CBC with automated diff Frequency: Every other day Number of Occurrences: Until Specified Order Comments: Every other day starting in 4 days, discontinue when patient off heparin drip. Comprehensive Metabolic Panel Frequency: AM Draw Number of Occurrences: 1 Occurrences High Sensitivity Troponin I Frequency: AM Draw Number of Occurrences: 1 Occurrences PROBNP Frequency: AM Draw Number of Occurrences: 1 Occurrences PTT Heparin Protocol Frequency: Q6H Number of Occurrences: Until Specified Order Comments: Check aPTT every 6 hours while on heparin infusion, or per protocol. PTT Heparin Protocol Frequency: Q6H Number of Occurrences: 9 Occurrences Diet NPO Except: Ice Chips, Sips with meds Frequency: After breakfast (0800) Number of Occurrences: Until Specified Nursing Apply sequential compression device Frequency: Until Discontinued Number of Occurrences: Until Specified Bed rest Frequency: Until Discontinued Number of Occurrences: Until Specified Continuous Pulse Oximetry Frequency: Until Discontinued Number of Occurrences: Until Specified Daily weights Frequency: Daily Number of Occurrences: Until Specified Fluid restriction - all sources Frequency: Until Discontinued Number of Occurrences: Until Specified Intake and Output Frequency: Q Shift Number of Occurrences: Until Specified Monitor Capnography, Nursing Frequency: Until Discontinued Number of Occurrences: Until Specified Notify physician for blood glucose outside specified range Frequency: Until Discontinued Number of Occurrences: Until Specified Notify provider laboratory results Frequency: Until Discontinued Number of Occurrences: Until Specified Order Comments: Platelet count less than 100,000, Hematocrit less than 32%. Nursing general assessments and interventions Frequency: Until Discontinued Number of Occurrences: Until Specified Order Comments: blood glucose 41-69 mg/dL AND can take oral Give 15 grams of carbohydrates: 4 ounces of juice or soda (not diet). Recheck blood glucose every 15 minutes and repeat 15 grams of carbohydrates until blood glucose is above 70 mg/dL. Give Meal or Snack Call Provider if not resolved after 3 treatments Repeat BS in 1 hour, retime for 1 hour after blood sugar greater than 70 mg/dL Strict Intake and Output Frequency: Q Shift Number of Occurrences: Until Specified Telemetry monitoring for Cardiac Ischemia (known or suspected) Frequency: Until Discontinued Number of Occurrences: 48 Hours Vital Signs Frequency: Per Unit Routine Number of Occurrences: Until Specified Weigh patient STAT Frequency: Once Number of Occurrences: 1 Occurrences Code Status Full code Frequency: Continuous Number of Occurrences: Until Specified Consult Inpatient consult to Cardiac Rehabiliation Frequency: Once Number of Occurrences: 1 Occurrences Inpatient consult to Cardiology Frequency: Once Number of Occurrences: 1 Occurrences Inpatient Consult to Nephrology Frequency: Once Number of Occurrences: 1 Occurrences Echocardiography ECHO COMPLETE (DOPPLER / COLOR) W OR WO CONTRAST Frequency: Once Number of Occurrences: 1 Occurrences IV Insert Peripheral IV Linked Order: And Frequency: Once Number of Occurrences: 1 Occurrences Saline Lock IV Linked Order: And Frequency: Once Number of Occurrences: 1 Occurrences Point of Care Testing-Docked Device POCT glucose : Eating Meals Frequency: 4 times daily before meals & at bedtime Number of Occurrences: 80 Occurrences Order Comments: Notify provider if patient becomes NPO, and convert blood glucose checks to every 6hours scheduled. Medications acetaminophen (TYLENOL) tablet 1,000 mg Frequency: Q6H PRN Dose: 1,000 mg Route: oral aspirin EC tablet 81 mg Frequency: Daily Dose: 81 mg Route: oral atorvastatin (LIPITOR) tablet 40 mg Frequency: Every Night Dose: 40 mg Route: oral budesonide (PULMICORT) nebulizer suspension 0.5 mg Frequency: 2 times daily Dose: 0.5 mg Route: nebulization carvediloL (COREG) tablet 12.5 mg Frequency: BID w/breakfast & dinner Dose: 12.5 mg Route: oral cloNIDine (CATAPRES) tablet 0.1 mg Frequency: Q8H PRN Dose: 0.1 mg Route: oral dextrose 50% (D50W) injection 25 g Frequency: Q15 Min PRN Dose: 25 g Route: intravenous diphenhydrAMINE (BENADRYL) capsule 25 mg Frequency: Every Night PRN Dose: 25 mg Route: oral glucagon injection 1 mg Frequency: Q15 Min PRN Dose: 1 mg Route: intraMUSCULAR glucose chew tab 16 g Frequency: Q15 Min PRN Dose: 16 g Route: oral heparin bolus from bag 2,360 Units Linked Order: Or Frequency: Q6H PRN Dose: 40 Units/kg Route: intravenous heparin bolus from bag 3,540 Units Linked Order: Or Frequency: Q6H PRN Dose: 60 Units/kg Route: intravenous heparin infusion 25,000 units in sodium chloride 0.45% (NS) 250 mL (100 units/mL) Frequency: Titrated Dose: 2-24 Units/kg/hr Route: intravenous hydrALAZINE (APRESOLINE) injection 20 mg Frequency: TID Dose: 20 mg Route: intravenous insulin lispro (HUMALOG, ADMELOG) injection 0-12 Units Frequency: 4x Daily AC Dose: 0-12 Units Route: subcutaneous ipratropium-albuteroL (DUO-NEB) 0.5 mg-3 mg(2.5 mg base)/3 mL nebulizer solution 3 mL Frequency: Q6H PRN Dose: 3 mL Route: nebulization levothyroxine (SYNTHROID) tablet 88 mcg Frequency: QAM (0600) Dose: 88 mcg Route: oral LORazepam (ATIVAN) tablet 0.5 mg Frequency: Q8H PRN Dose: 0.5 mg Route: oral magnesium sulfate IVPB 2 g in sterile water 50 mL (premix) Frequency: Daily PRN Dose: 2 g Route: intravenous magnesium sulfate IVPB 2 g in sterile water 50 mL (premix) Frequency: BID PRN Dose: 2 g Route: intravenous melatonin tablet 5 mg Frequency: Every Night PRN Dose: 5 mg Route: oral morphine injection 2 mg Frequency: Q4H PRN Dose: 2 mg Route: intravenous naloxone (NARCAN) injection 0.2 mg Frequency: Q2 Min PRN Dose: 0.2 mg Route: intravenous nitroglycerin (NITROSTAT) tablet 0.4 mg Frequency: Q5 Min PRN Dose: 0.4 mg Route: sublingual ondansetron (ZOFRAN) injection 4 mg Linked Order: Or Frequency: Q8H PRN Dose: 4 mg Route: intravenous ondansetron (ZOFRAN-ODT) disintegrating tablet 4 mg Linked Order: Or Frequency: Q8H PRN Dose: 4 mg Route: oral oxyCODONE (ROXICODONE) immediate release tablet 10 mg Frequency: Q4H PRN Dose: 10 mg Route: oral pantoprazole (PROTONIX) EC tablet 40 mg Frequency: Daily Dose: 40 mg Route: oral sodium chloride flush 10 mL Linked Order: And Frequency: PRN Dose: 10 mL Route: intravenous Cosigned by Dajuan Banuelos MD at 06/24/2025 7:24 PM EDT documented in this encounter Consult Notes * Kuldip Barbosa MD - 06/27/2025 12:51 PM EDTAssociated Order(s): Inpatient consult to Gastroenterology Inpatient consult to Gastroenterology Consult performed by: Kuldip Barbosa MD Consult ordered by: Mundo Díaz MD History of Present Illness: Mar Waldron is a 55 y.o. female we were asked to see for recurring anemia requiring transfusions. Patient has history of diabetes, end-stage renal disease on hemodialysis, and heart failure with reduced ejection fraction. Patient was admitted for shortness of breath and had missed dialysis appointment prior to admission, patient was evaluated outside hospital and treated for acute heart failure exacerbation, NSTEMI and noted to have pleural effusion. Patient is accompanied by multiple family members, currently lethargic and sleepy in the bed, per medication administration history she has been receiving oxycodone regularly. Patient has documented chronic anemia since at least March 2024. She has not had recent EGD or colonoscopy, she was planned for EGD and colonoscopy earlier this year in [place] but procedures were canceled. Iron studies consistent with anemia of chronic disease picture, also patient has required blood transfusions periodically over the last several months, which could contribute to her elevated iron saturation. No known active GI bleeding to this point including hematemesis or melena or hematochezia. Family denies knowing about a history of cirrhosis and reports patient is not a heavy user of alcohol. She does have underlying metabolic risk factors for nonalcoholic fatty liver disease. Past Medical History She has a past medical history of Arthritis, Cancer (HCC), CHF (congestive heart failure) (HCC), Chronic kidney disease requiring chronic dialysis (HCC), COPD (chronic obstructive pulmonary disease) (HCC), Hypertension, Murmur, and Thyroid disease. Past Surgical History She has a past surgical history that includes triple bypass (2013); left arm fistula (Left); Eye surgery; Cataract extraction; Gallbladder surgery; Appendectomy; Hysterectomy; and Cardiac surgery. Family History: Her family history is not on file. Social History: Social History Socioeconomic History Marital status: Tobacco Use Smoking status: Every Day Current packs/day: 1.00 Types: Cigarettes Smokeless tobacco: Never Vaping Use Vaping status: Never Used Substance and Sexual Activity Alcohol use: Never Drug use: Yes Types: Marijuana Social Drivers of Health Financial Resource Strain: Low Risk (06/23/2025) Financial Resource Strain Struggle to pay for basics: Not hard at all Food Insecurity: No Food Insecurity (06/23/2025) Food Insecurity Food run out past 12 months: Never true Food did not last past 12 months: Never true Transportation: No Transportation Needs (06/23/2025) Transportation Needs Transportation unreliable past 12 months: No Physical Activity: Inactive (06/23/2025) Physical Activity Minutes of exercise per week: 0 Social Connections: Unknown (06/23/2025) Family and Community Support Help with Day to Day Activities: I don't need any help Feeling Lonely or Isolated: 0 Allergies: Basaglar Kwikpen U-100 Insulin [Insulin Glargine] and Lisinopril Inpatient Medications: Current Facility-Administered Medications: acetaminophen (TYLENOL) tablet 1,000 mg, 1,000 mg, oral, Q6H PRN, Dajuan Banuelos MD acetaZOLAMIDE (DIAMOX) tablet 250 mg, 250 mg, oral, BID, Dajuan Banuelos MD, 250 mg at 06/27/25901 aspirin EC tablet 81 mg, 81 mg, oral, Daily, Vlad Waters PA-C, 81 mg at 06/27/25901 atorvastatin (LIPITOR) tablet 40 mg, 40 mg, oral, Every Night, GARCIA Villagran, 40 mg at 06/26/252032 budesonide (PULMICORT) nebulizer suspension 0.5 mg, 0.5 mg, nebulization, 2 times daily, Vlad Waters PA-C, 0.5 mg at 06/23/252044 carvediloL (COREG) tablet 12.5 mg, 12.5 mg, oral, BID w/breakfast & dinner, Vlad Waters PA-C,12.5 mg at 06/27/25901 cloNIDine (CATAPRES) tablet 0.1 mg, 0.1 mg, oral, Q8H PRN, Vlad Waters PA-C, 0.1 mg at 06/24/251216 dextrose 50% (D50W) injection 25 g, 25 g, intravenous, Q15 Min PRN, Vlad Waters PA-C diphenhydrAMINE (BENADRYL) capsule 25 mg, 25 mg, oral, Every Night PRN, Dajuan Banuelos MD doxazosin (CARDURA) tablet 2 mg, 2 mg, oral, BID, Dajuan Banuelos MD, 2 mg at 06/27/25901 glucagon injection 1 mg, 1 mg, intraMUSCULAR, Q15 Min PRN, Vlad Waters PA-C glucose chew tab 16 g, 16 g, oral, Q15 Min PRN, Vlad Waters PA-C heparin bolus from bag 3,600 Units, 60 Units/kg, intravenous, Q6H PRN OR heparin bolus from bag2,400 Units, 40 Units/kg, intravenous, Q6H PRN, Mundo Díaz MD [Held by provider] heparin infusion 25,000 units in sodium chloride 0.45% (NS) 250 mL (100 units/mL), 2-24 Units/kg/hr, intravenous, Titrated, Mundo Díaz MD, Paused at 06/25/252112 hydrALAZINE (APRESOLINE) injection 20 mg, 20 mg, intravenous, TID, Vlad Waters PA-C, 20 mg at 06/27/25902 hydrALAZINE (APRESOLINE) tablet 75 mg, 75 mg, oral, 4x Daily, Dajuan Banuelos MD, 75 mg at 06/27/25901 insulin lispro (HUMALOG, ADMELOG) injection 0-12 Units, 0-12 Units, subcutaneous, 4x Daily AC, Vlad Waters PA-C, 4 Units at 06/27/25638 ipratropium-albuteroL (DUO-NEB) 0.5 mg-3 mg(2.5 mg base)/3 mL nebulizer solution 3 mL, 3 mL, nebulization, Q6H PRN, Vlad Waters PA-C isosorbide mononitrate (IMDUR) 24 hr tablet 120 mg, 120 mg, oral, Daily, Dajuan Banuelos MD, 120 mg at 06/27/25901 levothyroxine (SYNTHROID) tablet 88 mcg, 88 mcg, oral, QAM (0600), Vlad Waters PA-C, 88 mcg at 06/27/25638 LORazepam (ATIVAN) tablet 0.5 mg, 0.5 mg, oral, Q8H PRN, Dajuan Banuelos MD, 0.5 mg at 06/27/25901 magnesium sulfate IVPB 2 g in sterile water 50 mL (premix), 2 g, intravenous, Daily PRN, Vlad Waters PA-C magnesium sulfate IVPB 2 g in sterile water 50 mL (premix), 2 g, intravenous, BID PRN, Vlad Waters PA-C melatonin tablet 5 mg, 5 mg, oral, Every Night PRN, Vlad Waters PA-C, 5 mg at 06/26/252032 morphine injection 2 mg, 2 mg, intravenous, Q4H PRN, Vlad Waters PA-C naloxone (NARCAN) injection 0.2 mg, 0.2 mg, intravenous, Q2 Min PRN, Dajuan Banuelos MD nitroglycerin (NITROSTAT) tablet 0.4 mg, 0.4 mg, sublingual, Q5 Min PRN, Vlad Waters PA-C ondansetron (ZOFRAN-ODT) disintegrating tablet 4 mg, 4 mg, oral, Q8H PRN OR ondansetron (ZOFRAN) injection 4 mg, 4 mg, intravenous, Q8H PRN, Vlad Waters PA-C oxyCODONE (ROXICODONE) immediate release tablet 10 mg, 10 mg, oral, Q4H PRN, Vlad Waters PA-C, 10mg at 06/27/25901 pantoprazole (PROTONIX) EC tablet 40 mg, 40 mg, oral, Daily, Vlad Waters PA-C, 40 mg at 06/27/25901 [COMPLETED] Prepare RBC: 1 Units, , , Once AND Transfuse RBC: 1 Units, , intravenous, Transfusion AND sodium chloride 0.9 % infusion, 20 mL/hr, intravenous, Once, Mundo Díaz MD, Last Rate: 20 mL/hr at 06/27/25 1120, 20 mL/hr at 06/27/25 1120 sodium chloride 0.9% (NS) bolus, 250 mL, intravenous, Daily PRN, Blaine Moreno MD sodium chloride 0.9% (NS) bolus, 250 mL, intravenous, Daily PRN, Blaine Moreno MD Insert Peripheral IV, , , Once AND Saline Lock IV, , , Once AND sodium chloride flush 10 mL, 10 mL, intravenous, PRN, Dajuan Banuelos MD Home Medications: Medications Prior to Admission Medication Sig Dispense Refill Last Dose/Taking albuterol 90 mcg/actuation inhaler Inhale 2 puffs by mouth every 6 (six) hours as needed for wheezing. amLODIPine (NORVASC) 10 MG tablet Take 1 tablet (10 mg total) by mouth daily. aspirin 81 MG EC tablet Take 1 tablet (81 mg total) by mouth daily. atorvastatin (LIPITOR) 80 MG tablet Take 1 tablet (80 mg total) by mouth nightly. calcitRIOL (ROCALTROL) 0.25 MCG capsule Take 1 capsule (0.25 mcg total) by mouth 3 (three) times a week TUE/JOELLEN/SAT Administered at dialysis as directed . carvediloL (COREG) 12.5 MG tablet Take 1 tablet (12.5 mg total) by mouth 2 (two) times daily. diphenoxylate-atropine (LOMOTIL) 2.5-0.025 mg per tablet Take 1 tablet by mouth every 6 (six) hoursas needed for diarrhea. Max Daily Amount: 4 tablets doxazosin (CARDURA) 2 MG tablet Take 1 tablet (2 mg total) by mouth nightly. epoetin beta, methoxy peg (Mircera) 200 mcg/0.3 mL syrg Inject 200 mcg as directed every 14 (fourteen) days Administered at dialysis as directed . escitalopram (LEXAPRO) 10 MG tablet Take 1 tablet (10 mg total) by mouth daily. ezetimibe (ZETIA) 10 mg tablet Take 1 tablet (10 mg total) by mouth nightly. hydrALAZINE (APRESOLINE) 25 MG tablet Take 3 tablets (75 mg total) by mouth 3 (three) times daily. isosorbide mononitrate (IMDUR) 60 MG 24 hr tablet Take 2 tablets (120 mg total) by mouth daily. levothyroxine (SYNTHROID) 88 MCG tablet Take 1 tablet (88 mcg total) by mouth in the morning. oxyCODONE-acetaminophen (PERCOCET) 10-325 mg per tablet Take 1 tablet by mouth every 6 (six) hours as needed for pain. pantoprazole (PROTONIX) 20 MG tablet Take 1 tablet (20 mg total) by mouth daily. topiramate (TOPAMAX) 25 MG tablet Take 1 tablet (25 mg total) by mouth 2 (two) times daily. ROS: Review of Systems Constitutional: Negative for chills and fever. Respiratory: Negative for shortness of breath. Cardiovascular: Negative for chest pain. Psychiatric/Behavioral: Negative for confusion. Vitals Blood pressure (!) 156/54, pulse (!) 48, temperature 97.8 ??F (36.6 ??C), resp. rate 18, height 1.702 m (5' 7.01 ), weight 60 kg (132 lb 4.4 oz), SpO2 99%. Physical Exam Constitutional: General: She is not in acute distress. HENT: Head: Normocephalic and atraumatic. Nose: Nose normal. Mouth/Throat: Mouth: Mucous membranes are moist. Pharynx: Oropharynx is clear. Eyes: General: No scleral icterus. Conjunctiva/sclera: Conjunctivae normal. Pulmonary: Effort: Pulmonary effort is normal. No respiratory distress. Abdominal: General: There is no distension. Palpations: Abdomen is soft. Tenderness: There is no abdominal tenderness. There is no guarding or rebound. Skin: General: Skin is warm. Coloration: Skin is not jaundiced. Neurological: Mental Status: She is alert and oriented to person, place, and time. Psychiatric: Mood and Affect: Mood normal. Behavior: Behavior normal. Relevant Results: Results for orders placed or performed during the hospital encounter of 06/23/25 (from the past 24 hours) PTT Heparin Protocol Status: Abnormal Collection Time: 06/26/25 6:24 PM Result Value Ref Range PTT Heparin 29.3 (L) 45 - 65 seconds Glucose, Nova Meter Status: Abnormal Collection Time: 06/26/25 8:12 PM Result Value Ref Range POC-GLUCOSE 117 (H) 70 - 110 mg/dL [employer] T[employer] [id number] PTT Heparin Protocol Status: Abnormal Collection Time: 06/26/25 11:57 PM Result Value Ref Range PTT Heparin 30.2 (L) 45 - 65 seconds CBC with automated diff Status: Abnormal Collection Time: 06/27/25 3:06 AM Result Value Ref Range WBC 3.8 (L) 4.0 - 10.0 K/??L RBC 2.51 (L) 3.93 - 5.22 M/??L Hemoglobin 6.8 (L) 11.2 - 15.7 GM/DL Hematocrit 24.1 (L) 34.1 - 44.9 % MCV 96 (H) 79 - 95 fL MCH 27.1 25.6 - 32.2 pg MCHC 28.2 (L) 32.2 - 35.5 GM/DL RDW 19.5 (H) 11.7 - 14.4 % Platelets 50 (L) 140 - 375 K/CU MM MPV 11.8 9.4 - 12.3 fL Nucleated Red Blood Cell 0.0 0 - 0.2 % % Neutros 59 34 - 71 % % Lymphs 26 19 - 52 % % Monos 9 5 - 13 % % Eos 4 1 - 6 % % Baso 1 0 - 1 % NRBC Absolute <0.01 0 - 0.012 K/ul # Neutros 2.24 1.56 - 6.13 K/??L # Lymphs 0.99 (L) 1.18 - 3.74 K/??L # Monos 0.35 0.24 - 0.86 K/??L # Eos 0.14 0.04 - 0.36 K/??L # Baso 0.05 0.01 - 0.08 K/??L Immature Granulocytes-Relative 0.50 (H) 0.01 - 0.43 % # IG <0.03 0.00 - 0.03 K/uL Comprehensive metabolic panel Status: Abnormal Collection Time: 06/27/25 3:06 AM Result Value Ref Range Sodium 137 136 - 145 meq/L Potassium 3.8 3.4 - 5.1 meq/L Chloride 101 98 - 112 meq/L CO2 25 22 - 29 meq/L Calcium 7.8 (L) 8.4 - 10.2 mg/dL Glucose 198 (H) 74 - 100 mg/dL BUN 27.3 (H) 9.8 - 20.1 mg/dL Creatinine 1.85 (H) 0.57 - 1.11 mg/dL BUN/Creatinine 15 8 - 20 eGFR (mL/min/1.73m2) 32 (L) >=60 mL/min/1.73m2 Albumin 2.4 (L) 3.5 - 5.0 g/dL Alkaline Phosphatase 194 (H) 40 - 150 U/L ALT <7 <=34 U/L AST 20 11 - 34 U/L Total Bilirubin 0.6 0.2 - 1.2 mg/dL Protein, Total 5.9 (L) 6.4 - 8.3 g/dL Globulin 3.5 2.5 - 4.1 g/dL Anion Gap 15 (H) 4 - 12 A/G Ratio 0.7 0.7 - 1.9 Osmolality Calc 284.6 mOsm/kg Magnesium Status: Normal Collection Time: 06/27/25 3:06 AM Result Value Ref Range Magnesium 1.6 1.6 - 2.6 mg/dL CBC Scan Status: Abnormal Collection Time: 06/27/25 3:06 AM Result Value Ref Range Platelet Estimate Decreased (A) Adequate RBC Morphology abnormal (A) Normal Anisocytosis 2+ Hypochromia 1+ Polychromasia 1+ Macrocytes 1+ Ovalocytes 1+ Elliptocytes 1+ Glucose, Nova Meter Status: Abnormal Collection Time: 06/27/25 5:14 AM Result Value Ref Range POC-GLUCOSE 193 (H) 70 - 110 mg/dL [employer] Tester [id number] Prepare RBC: 1 Units Status: None Collection Time: 06/27/25 9:47 AM Result Value Ref Range Issue Date/Time [id number] Product Identification Red Blood Cells Product Code [id number] Status Information TRANSFUSED Unit Number [id number] Blood Type 9500 Cross Match Results Compatible PTT Heparin Protocol Status: Abnormal Collection Time: 06/27/25 10:07 AM Result Value Ref Range PTT Heparin 29.7 (L) 45 - 65 seconds Glucose, Nova Meter Status: Abnormal Collection Time: 06/27/25 11:32 AM Result Value Ref Range POC-GLUCOSE 156 (H) 70 - 110 mg/dL [employer] Tester [id number] Radiology Results (last 3 days) Procedure Component Value Units Date/Time XR chest 2 views [[id number]] Collected: 06/24/25 1507 Order Status: Completed Updated: 06/24/25 1541 Narrative: TWO-VIEW CHEST 06/24/2025 2:10 PM HISTORY: Pleural effusion. Postthoracentesis. COMPARISON: June 23, 2025 FINDINGS: The cardiac silhouette is mildly enlarged. The aortic contours are normal. The mediastinal and hilar structures are unremarkable. There is pulmonary vascular congestion with a moderate right pleural effusion. There is right lower lobe consolidation. There is no pneumothorax. Status post median sternotomy. Impression: No pneumothorax post thoracentesis. Pulmonary vascular congestion with right lower lobe consolidation and moderate right pleural effusion. Images reviewed, interpreted, and dictated by Dr. Nas Rebolledo. Transcribed by Kalyan Wisdom PA-C US THORACENTESIS LT [[id number]] Collected: 06/24/25 1423 Order Status: Completed Updated: 06/24/251456 Narrative: ULTRASOUND-GUIDED THORACENTESIS WITH TUBE INSERTION HISTORY: Left pleural effusion. ATTENDING RADIOLOGIST: Dr. Rebolledo. PHYSICIAN MEDICAL LEGAL INVESTIGATOR: Kalyan Wisdom PA-C. TECHNIQUE: Informed consent was obtained from the patient. The indications and complications were discussed prior to beginning the procedure. This included, but was not limited to, pain, bleeding, infection, and pneumothorax requiring chest tube placement. The left back was then prepped and draped in sterile fashion. 1% lidocaine was used for local anesthesia. Utilizing sonographic guidance, a standard thoracentesis needle and sheath were inserted into the pleural space. The needle was removed and the catheter was left in the pleural space. Approximately 300 mL of clear yellow pleural fluid was successfully removed without complication. The tube was subsequently removed from the pleural space. The patient tolerated the procedure well. Sample of the fluid was sent to lab for preordered studies. Impression: Technically successful sonographic-guided left thoracentesis with tube insertion as above. Images reviewed, interpreted, and dictated by Dr. Nas Rebolledo. Transcribed by Kalyan Wisdom PA-C Assessment & Plan Assessment: Recurring anemia on chronic anemia in setting of end-stage renal disease Heart failure with reduced ejection fraction NSTEMI Pleural effusion status post thoracentesis Recommendations: I will order abdominal ultrasound to further evaluate her liver and evaluate for evidence of portalhypertension given her thrombocytopenia, she does not have known history of cirrhosis or heavy alcohol use history but does have risk factors for metabolic associated steatohepatitis. Patient has multiple co morbidities that can contribute to her anemia, she has not had any recent endoscopies per provided history to evaluate for occult GI bleeding, however her concurrent medical issues make increased risk for sedation and invasive endoscopy, at this time she is not having activeGI bleeding, we will continue to monitor, discussed with family members at the bedside, patient waslethargic and did not participate in the conversation, they are agreeable with watchful waiting at this time. Family is pending discussion with palliative care. Electronically signed by Kuldip Barbosa MD 06/27/2025 at 12:51 PM * Ferny Pereira MD - 06/27/2025 12:17 PM EDTAssociated Order(s): Inpatient consult to Palliative Care Inpatient consult to Palliative Care Consult performed by: Ferny Pereira MD Consult ordered by: Mundo Díaz MD Reason for consult: Complex Medical Decision Making History of Present Illness: Mar Waldron is a 55 y.o. female with a history of CHF, COPD, HTN, ESRD on iHD, renal mass concerning for malignancy, and recent hospitalization at for volume overload, who presented to [facility] on 06/23 with shortness of breath. She was found to have an acute CHF exacerbation and NSTEMI, with a moderate left pleural effusion. She was subsequently transferred to [facility] on 06/23 for nephrology coverage and higher level of care. Since admission, patient has undergone a thoracentesis on 06/24, and an ECHO which showed an EF of 20 +/- 5%, with Grade III diastolic dysfunction of the LV. Palliative care was consulted on 06/27 for assistance with complex medical decision making in the setting of multiple chronic medical issues and recent hospitalizations. Past Medical History: She has a past medical history of Arthritis, Cancer ([facility]), CHF (congestive heart failure) ([facility]), Chronic kidney disease requiring chronic dialysis ([facility]), COPD (chronic obstructive pulmonary disease) ([facility]), Hypertension, Murmur, and Thyroid disease. Past Surgical History: She has a past surgical history that includes triple bypass (2012); left arm fistula (Left); Eye surgery; Cataract extraction; Gallbladder surgery; Appendectomy; Hysterectomy; and Cardiac surgery. Social History: She reports that she has been smoking cigarettes. She has never used smokeless tobacco. She reportscurrent drug use. Drug: Marijuana. She reports that she does not drink alcohol. Family History: Her family history is not on file. Allergies: Basaglar Kwikpen U-100 Insulin [Insulin Glargine] and Lisinopril Medications: Medications Prior to Admission Medication Sig Dispense Refill Last Dose/Taking albuterol 90 mcg/actuation inhaler Inhale 2 puffs by mouth every 6 (six) hours as needed for wheezing. amLODIPine (NORVASC) 10 MG tablet Take 1 tablet (10 mg total) by mouth daily. aspirin 81 MG EC tablet Take 1 tablet (81 mg total) by mouth daily. atorvastatin (LIPITOR) 80 MG tablet Take 1 tablet (80 mg total) by mouth nightly. calcitRIOL (ROCALTROL) 0.25 MCG capsule Take 1 capsule (0.25 mcg total) by mouth 3 (three) times a week E/JOELLEN/SAT Administered at dialysis as directed . carvediloL (COREG) 12.5 MG tablet Take 1 tablet (12.5 mg total) by mouth 2 (two) times daily. diphenoxylate-atropine (LOMOTIL) 2.5-0.025 mg per tablet Take 1 tablet by mouth every 6 (six) hoursas needed for diarrhea. Max Daily Amount: 4 tablets doxazosin (CARDURA) 2 MG tablet Take 1 tablet (2 mg total) by mouth nightly. epoetin beta, methoxy peg (Mircera) 200 mcg/0.3 mL syrg Inject 200 mcg as directed every 14 (fourteen) days Administered at dialysis as directed . escitalopram (LEXAPRO) 10 MG tablet Take 1 tablet (10 mg total) by mouth daily. ezetimibe (ZETIA) 10 mg tablet Take 1 tablet (10 mg total) by mouth nightly. hydrALAZINE (APRESOLINE) 25 MG tablet Take 3 tablets (75 mg total) by mouth 3 (three) times daily. isosorbide mononitrate (IMDUR) 60 MG 24 hr tablet Take 2 tablets (120 mg total) by mouth daily. levothyroxine (SYNTHROID) 88 MCG tablet Take 1 tablet (88 mcg total) by mouth in the morning. oxyCODONE-acetaminophen (PERCOCET) 10-325 mg per tablet Take 1 tablet by mouth every 6 (six) hours as needed for pain. pantoprazole (PROTONIX) 20 MG tablet Take 1 tablet (20 mg total) by mouth daily. topiramate (TOPAMAX) 25 MG tablet Take 1 tablet (25 mg total) by mouth 2 (two) times daily. Review of Systems All other systems reviewed and are negative. Vitals: Blood pressure (!) 152/51, pulse 54, temperature 97.3 ??F (36.3 ??C), resp. rate 18, height 1.702 m(5' 7.01 ), weight 60 kg (132 lb 4.4 oz), SpO2 94%. Physical Exam Constitutional: General: She is not in acute distress. Appearance: Normal appearance. She is ill-appearing. HENT: Head: Normocephalic and atraumatic. Right Ear: External ear normal. Left Ear: External ear normal. Nose: Comments: Nasal canula in place Mouth/Throat: Mouth: Mucous membranes are moist. Pharynx: Oropharynx is clear. Eyes: Conjunctiva/sclera: Conjunctivae normal. Pulmonary: Effort: Pulmonary effort is normal. No respiratory distress. Musculoskeletal: Cervical back: Neck supple. Skin: General: Skin is warm and dry. Neurological: General: No focal deficit present. Mental Status: She is alert and oriented to person, place, and time. Psychiatric: Mood and Affect: Mood normal. Behavior: Behavior normal. Thought Content: Thought content normal. Judgment: Judgment normal. Relevant Results: Most recently obtained labs personally reviewed and notable for pancytopenia with WBC count of 3.8,Hgb of 6.8, platelet count of 50, Cr of 1.85 and BUN of 27.3 with no significant electrolyte abnormalities. CXR obtained 06/24 personally reviewed and notable for moderate right sided pleural effusion with pulmonary vascular congestion bilaterally. Assessment & Plan Principal Problem: CHF exacerbation (HCC) Active Problems: Fluid overload ESRD on iHD Acute exacerbation of Chronic CHF COPD HTN Acute hypoxic respiratory failure secondary to volume overload Renal Mass concerning for malignancy Complex Medical Decision Making - I met initially with patient this morning at bedside. Patient reports that she has just gotten pain medication and it is making her sleepy. I explained the role of palliative care, to assist with symptom management and to help ensure that patient/family have all the information necessary to make the best decisions possible related to their care. We can do so much in medicine that we risk crossing the line from doing things FOR someone into doing things TO someone. Where that line is is different for each individual person, and it is based on who they are and what is most important to them. - I then proceeded to explain to Ms. Waldron that she has many chronic illnesses, such as COPD, severe CHF, ESRD on iHD, and she will likely continue to have recurrent complications of these requiringrecurrent hospitalizations due to the severity of each disease. Discussed the concern that there may be treatments for acute exacerbations, but these are like bandaids that temporarily treat problems but really do not fix them, because her underlying problems do not have a fix. - Ms. Waldron stated that she was not particularly surprised to hear any of this, but that she wanted me to come back later when her children were here to continue these discussions. - I came back later in the afternoon, and met with patient's two sons, a daughter in law, and a sister. I again explained palliative care. Patient's sons were able to relate an accurate and appropriate understanding of her overall medical condition and stated that they ultimately want to follow their mother's wishes related to her care. Patient at this point was sleeping, and when awoken, stated that she was still really drowsy from the pain medication she had received, and she went back to sleep. - patient's sons stated that what would be most important to them, in the setting of their mother'smultiple chronic illnesses, would be to get her back home and keep her comfortable and not have herspending all her time in the hospital. They reported that they want to talk with her some more whenshe is more awake and make sure that they are honoring her wishes. - family did state that they will not consider discontinuing dialysis at this time. CODE Status at the time of my visit: FULL - patient's family reported that during her last hospitalization at last month she had told the treatment team that she wished to be a DNR/DNI and did not want to be resuscitated. - patient's children were able to wake her up enough to discuss code status with her while I was present, and patient confirmed that if she were to suffer a cardiac or respiratory arrest, she would wish for this to be considered the natural end of her life and to be allowed to peacefully without attempts at resuscitation. - family confirmed that this was consistent with her previous decisions and with who they know her to be. CODE STATUS was changed to DNR/No Vent based on the above discussion today, 06/27. Palliative care will continue to follow and assist with complex medical decision making. Electronically signed by Ferny Pereira MD 06/27/2025 at 12:17 PM * Blaine Moreno MD - 06/24/2025 10:36 AM EDT Consults ESRD History of Present Illness: Mar Waldron is a 55 y.o. female with a history of arthritis, CHF,ESRD, COPD, hypertension, and hypothyroidism presented to [facility] in [place], [place] for further evaluation and management of shortness of breath. Patient states she missed dialysis on Tuesday due to a family member passing away. Patient sought evaluation at [facility] where patient was found to be in acute CHF exacerbation, NSTEMI, and with moderate pleural effusion. Patient was subsequently transferred to [facility] for nephrology coverage and higher level of care. Patient was admitted for treatment of acute CHF exacerbation, NSTEMI, and pleural effusion, with consultation to cardiology and nephrology. Past Medical History: She has a past medical history of Arthritis, Cancer (HCC), CHF (congestive heart failure) (HCC), Chronic kidney disease requiring chronic dialysis (HCC), COPD (chronic obstructive pulmonary disease) (HCC), Hypertension, Murmur, and Thyroid disease. Past Surgical History: She has a past surgical history that includes triple bypass (2013); left arm fistula (Left); Eye surgery; Cataract extraction; Gallbladder surgery; Appendectomy; Hysterectomy; and Cardiac surgery. Social History: She reports that she has been smoking cigarettes. She has never used smokeless tobacco. She reportscurrent drug use. Drug: Marijuana. She reports that she does not drink alcohol. Family History: Her family history is not on file. Allergies: Basaglar Kwikpen U-100 Insulin [Insulin Glargine] and Lisinopril Medications: Medications Prior to Admission Medication Sig Dispense Refill Last Dose/Taking acetaZOLAMIDE (DIAMOX) 250 MG tablet Take 1 tablet (250 mg total) by mouth 2 (two) times daily. aspirin 325 MG tablet Take 1 tablet (325 mg total) by mouth daily. carvediloL (COREG) 25 MG tablet Take 1 tablet (25 mg total) by mouth 2 (two) times daily with breakfast and dinner. cloNIDine HCL (CATAPRES) 0.1 MG tablet Take 1 tablet (0.1 mg total) by mouth 2 (two) times daily asneeded (sys greater than 180). clopidogreL (PLAVIX) 75 mg tablet Take 1 tablet (75 mg total) by mouth daily. doxazosin (CARDURA) 2 MG tablet Take 1 tablet (2 mg total) by mouth 2 (two) times daily. ezetimibe (ZETIA) 10 mg tablet Take 1 tablet (10 mg total) by mouth nightly. hydrALAZINE (APRESOLINE) 50 MG tablet Take 1.5 tablets (75 mg total) by mouth 4 (four) times daily. isosorbide mononitrate (IMDUR) 60 MG 24 hr tablet Take 2 tablets (120 mg total) by mouth daily. levothyroxine (SYNTHROID, LEVOTHROID) 75 MCG tablet Take 1 tablet (75 mcg total) by mouth Every morning on an empty stomach. oxyCODONE-acetaminophen (PERCOCET) 10-325 mg per tablet Take 1 tablet by mouth every 6 (six) hours as needed for pain. pantoprazole (PROTONIX) 20 MG tablet Take 1 tablet (20 mg total) by mouth daily. valsartan (DIOVAN) 160 MG tablet Take 1 tablet (160 mg total) by mouth 2 (two) times daily. Review of Systems Constitutional: Positive for fatigue. HENT: Negative. Respiratory: Positive for cough and shortness of breath. Gastrointestinal: Negative. Skin: Negative. Neurological: Positive for weakness. Vitals: Blood pressure (!) 188/95, pulse 69, temperature 97.4 ??F (36.3 ??C), temperature source Oral, resp. rate 18, height 1.702 m (5' 7.01 ), weight 59.9 kg (132 lb), SpO2 92%. Physical Exam Constitutional: Appearance: She is ill-appearing. HENT: Head: Normocephalic and atraumatic. Nose: Nose normal. Eyes: Extraocular Movements: Extraocular movements intact. Pupils: Pupils are equal, round, and reactive to light. Cardiovascular: Rate and Rhythm: Normal rate and regular rhythm. Abdominal: Palpations: Abdomen is soft. Musculoskeletal: Cervical back: Normal range of motion and neck supple. Skin: General: Skin is warm and dry. Relevant Results: Results for orders placed or performed during the hospital encounter of 06/23/25 (from the past 24 hours) CBC with automated diff Status: Abnormal Collection Time: 06/23/25 8:26 PM Result Value Ref Range WBC 5.3 4.0 - 10.0 K/??L RBC 2.98 (L) 3.93 - 5.22 M/??L Hemoglobin 7.7 (L) 11.2 - 15.7 GM/DL Hematocrit 27.9 (L) 34.1 - 44.9 % MCV 94 79 - 95 fL MCH 25.8 25.6 - 32.2 pg MCHC 27.6 (L) 32.2 - 35.5 GM/DL RDW 19.8 (H) 11.7 - 14.4 % Platelets 71 (L) 140 - 375 K/CU MM MPV 11.5 9.4 - 12.3 fL % Neutros 70 34 - 71 % % Lymphs 20 19 - 52 % % Monos 7 5 - 13 % % Eos 2 1 - 6 % % Baso 1 0 - 1 % NRBC Absolute <0.01 0 - 0.012 K/ul # Neutros 3.67 1.56 - 6.13 K/??L # Lymphs 1.03 (L) 1.18 - 3.74 K/??L # Monos 0.35 0.24 - 0.86 K/??L # Eos 0.11 0.04 - 0.36 K/??L # Baso 0.06 0.01 - 0.08 K/??L Immature Granulocytes-Relative 0.80 (H) 0.01 - 0.43 % # IG 0.04 (H) 0.00 - 0.03 K/uL Comprehensive Metabolic Panel Status: Abnormal Collection Time: 06/23/25 8:26 PM Result Value Ref Range Sodium 141 136 - 145 meq/L Potassium 4.2 3.4 - 5.1 meq/L Chloride 101 98 - 112 meq/L CO2 24 22 - 29 meq/L Calcium 8.4 8.4 - 10.2 mg/dL Glucose 103 (H) 74 - 100 mg/dL BUN 38.1 (H) 9.8 - 20.1 mg/dL Creatinine 2.72 (H) 0.57 - 1.11 mg/dL BUN/Creatinine 14 8 - 20 eGFR (mL/min/1.73m2) 20 (L) >=60 mL/min/1.73m2 Albumin 2.7 (L) 3.5 - 5.0 g/dL Alkaline Phosphatase 228 (H) 40 - 150 U/L ALT 12 <=34 U/L AST 32 11 - 34 U/L Total Bilirubin 0.7 0.2 - 1.2 mg/dL Protein, Total 6.7 6.4 - 8.3 g/dL Globulin 4.0 2.5 - 4.1 g/dL Anion Gap 20 (H) 4 - 12 A/G Ratio 0.7 0.7 - 1.9 Osmolality Calc 290.6 mOsm/kg High Sensitivity Troponin I Status: Abnormal Collection Time: 06/23/25 8:26 PM Result Value Ref Range Troponin I High Sensitivity (pg/mL) 2,560.3 () <=14 pg/mL CBC Scan Status: Abnormal Collection Time: 06/23/25 8:26 PM Result Value Ref Range Platelet Estimate Decreased (A) Adequate RBC Morphology abnormal (A) Normal Anisocytosis 1+ Hypochromia 2+ Poikilocytes 1+ ECG 12 lead Status: None (In process) Collection Time: 06/23/25 10:44 PM Result Value Ref Range VENTRICULAR RATE EKG/MIN 68 BPM ATRIAL RATE (MCT) 68 BPM [place] Interval 140 ms QRS-INTERVAL (MSEC) 116 ms QT Interval 440 ms QTC Interval 467 ms P [place] 89 degrees R AXIS (MCT) 118 degrees T Wave [place] -57 degrees [place] Diagnosis Normal sinus rhythm Right axis deviation Pulmonary disease pattern ST & T wave abnormality, consider inferior ischemia Abnormal ECG When compared with ECG of 23-JUN-2025 22:43, ST no longer depressed in Inferior leads T wave inversion now evident in Inferior leads PTT Heparin Protocol Status: Abnormal Collection Time: 06/23/25 11:27 PM Result Value Ref Range PTT Heparin 30.9 (L) 45 - 65 seconds Prothrombin time/INR Status: Normal Collection Time: 06/23/25 11:27 PM Result Value Ref Range Protime 11.4 9.0 - 12.0 seconds INR 1.03 0.80 - 1.10 Glucose, Nova Meter Status: None Collection Time: 06/24/25 4:57 AM Result Value Ref Range POC-GLUCOSE 108 70 - 110 mg/dL B[employer]s Tester [id number] High Sensitivity Troponin I Status: Abnormal Collection Time: 06/24/25 6:32 AM Result Value Ref Range Troponin I High Sensitivity (pg/mL) 2,424.1 (HH) <=14 pg/mL PTT Heparin Protocol Status: Abnormal Collection Time: 06/24/25 6:32 AM Result Value Ref Range PTT Heparin 44.1 (L) 45 - 65 seconds CBC with automated diff Status: Abnormal Collection Time: 06/24/25 6:32 AM Result Value Ref Range WBC 4.6 4.0 - 10.0 K/??L RBC 3.33 (L) 3.93 - 5.22 M/??L Hemoglobin 8.6 (L) 11.2 - 15.7 GM/DL Hematocrit 31.2 (L) 34.1 - 44.9 % MCV 94 79 - 95 fL MCH 25.8 25.6 - 32.2 pg MCHC 27.6 (L) 32.2 - 35.5 GM/DL RDW 20.2 (H) 11.7 - 14.4 % Platelets 67 (L) 140 - 375 K/CU MM MPV % Neutros 70 34 - 71 % % Lymphs 20 19 - 52 % % Monos 6 5 - 13 % % Eos 2 1 - 6 % % Baso 1 0 - 1 % NRBC Absolute <0.01 0 - 0.012 K/ul # Neutros 3.20 1.56 - 6.13 K/??L # Lymphs 0.93 (L) 1.18 - 3.74 K/??L # Monos 0.27 0.24 - 0.86 K/??L # Eos 0.10 0.04 - 0.36 K/??L # Baso 0.04 0.01 - 0.08 K/??L Immature Granulocytes-Relative 0.70 (H) 0.01 - 0.43 % # IG 0.03 0.00 - 0.03 K/uL CBC Scan Status: Abnormal Collection Time: 06/24/25 6:32 AM Result Value Ref Range Platelet Estimate Decreased (A) Adequate RBC Morphology abnormal (A) Normal Anisocytosis 2+ Hypochromia 2+ Polychromasia 1+ Macrocytes 1+ Comprehensive Metabolic Panel Status: Abnormal Collection Time: 06/24/25 6:33 AM Result Value Ref Range Sodium 142 136 - 145 meq/L Potassium 4.4 3.4 - 5.1 meq/L Chloride 101 98 - 112 meq/L CO2 25 22 - 29 meq/L Calcium 8.7 8.4 - 10.2 mg/dL Glucose 108 (H) 74 - 100 mg/dL BUN 39.6 (H) 9.8 - 20.1 mg/dL Creatinine 2.74 (H) 0.57 - 1.11 mg/dL BUN/Creatinine 14 8 - 20 eGFR (mL/min/1.73m2) 20 (L) >=60 mL/min/1.73m2 Albumin 2.9 (L) 3.5 - 5.0 g/dL Alkaline Phosphatase 247 (H) 40 - 150 U/L ALT 13 <=34 U/L AST 38 (H) 11 - 34 U/L Total Bilirubin 0.7 0.2 - 1.2 mg/dL Protein, Total 7.3 6.4 - 8.3 g/dL Globulin 4.4 (H) 2.5 - 4.1 g/dL Anion Gap 20 (H) 4 - 12 A/G Ratio 0.7 0.7 - 1.9 Osmolality Calc 293.3 mOsm/kg PROBNP Status: Abnormal Collection Time: 06/24/25 6:33 AM Result Value Ref Range ProBNP (pg/mL) >70,000 (H) 16 - 334 pg/mL Assessment & Plan Principal Problem: CHF exacerbation (HCC) Active Problems: Fluid overload 1. Volume overload/moderate to large t pleural effusions 2. End-stage renal disease on dialysis Tuesday 3. Pancytopenia/underlying liver cirrhosis 4. Acute exacerbation of CHF due to diastolic dysfunction 5. COPD 6. Severe protein energy malnourishment 7. History of CAD prior stenting. - Will dialyze today with ultrafiltration as tolerated -Evaluate on daily basis to volume status, otherwise we will resume Tuesday schedule -Patient has pancytopenia likely underlying liver cirrhosis/hematology malignancy, extra managementas per primary -Fluid restriction 1.5 L 24-hour with 2 g of salt restriction 24-hour with dietitian consult -Avoid nephrotoxins -Strict intake and output -Bladder scan as needed -Keep MAP above 65 and hemoglobin above 7 -Renally dose medications and antibiotics -Monitor kidney function electrolytes on daily basis -Would recommend palliative consultation/hospice given the several comorbidities of this patient and poor functional status and poor quality of life with very high mortality given the above comorbidities -Thanks for consultation [facility] [address] [place] [address] [address] [place], [place], [address] Phone #[phone] Fax #[phone] High complex case Electronically signed by Blaine Moreno MD 06/24/2025 at 10:36 AM * Mindy Mckeon MD - 06/24/2025 7:52 AM EDTAssociated Order(s): FS_MODEL_IP IP CONSULT TO CARDIOLOGY [facility] - Consult Note Basic Information: Name Mar Vanessa Viet, 1970, 55 y.o., female PCP: Osmani Becker MD Admit Date 06/23/2025 Patient Location [id number] Chief Complaint/Consult reason: Short of breath short of breath Consult for elevated troponin History of Present Illness: The patient is an exceptionally pleasant 55-year-old female with a known history of heart failure with preserved ejection fraction, end-stage renal disease on hemodialysis Tuesday and Tuesday, hypertension, dyslipidemia, COPD, thyroid dysfunction who presented to [facility] via outside facility with complaints of shortness of air. Patient states she missed her dialysis Tuesday and became more short of air. She presented to the emergency department and was found to have an elevated cardiac enzyme level. She has no complaints of chest pain however. She was transferred to our facility for higher level of care for nephrology evaluation. Cardiology has been asked to see and assist in the management of her care today. At the time of this assessment she is resting comfortably no acute distress states she is breathing better. Review of Sytems: Complete 10 point ROS Normal or Non-contributory except complaints described in HPI or other sections of this note. Health Status: Allergies Basaglar Kwikpen U-100 Insulin [Insulin Glargine] and Lisinopril Home Medications: Prior to Admission medications Medication Sig Start Date End Date Taking? Authorizing Provider acetaZOLAMIDE (DIAMOX) 250 MG tablet Take 1 tablet (250 mg total) by mouth 2 (two) times daily. Historical Provider, aspirin 325 MG tablet Take 1 tablet (325 mg total) by mouth daily. Historical Provider, carvediloL (COREG) 25 MG tablet Take 1 tablet (25 mg total) by mouth 2 (two) times daily with breakfast and dinner. Historical Provider, cloNIDine HCL (CATAPRES) 0.1 MG tablet Take 1 tablet (0.1 mg total) by mouth 2 (two) times daily asneeded (sys greater than 180). Historical Provider, clopidogreL (PLAVIX) 75 mg tablet Take 1 tablet (75 mg total) by mouth daily. Historical Provider, doxazosin (CARDURA) 2 MG tablet Take 1 tablet (2 mg total) by mouth 2 (two) times daily. HistoricalProviderMD ezetimibe (ZETIA) 10 mg tablet Take 1 tablet (10 mg total) by mouth nightly. Historical ProviderMD hydrALAZINE (APRESOLINE) 50 MG tablet Take 1.5 tablets (75 mg total) by mouth 4 (four) times daily.Historical ProviderMD isosorbide mononitrate (IMDUR) 60 MG 24 hr tablet Take 2 tablets (120 mg total) by mouth daily. Historical ProviderMD levothyroxine (SYNTHROID, LEVOTHROID) 75 MCG tablet Take 1 tablet (75 mcg total) by mouth Every morning on an empty stomach. Historical ProviderMD oxyCODONE-acetaminophen (PERCOCET) 10-325 mg per tablet Take 1 tablet by mouth every 6 (six) hours as needed for pain. Historical ProviderMD pantoprazole (PROTONIX) 20 MG tablet Take 1 tablet (20 mg total) by mouth daily. Historical ProviderMD valsartan (DIOVAN) 160 MG tablet Take 1 tablet (160 mg total) by mouth 2 (two) times daily. Historical Provider, Past Medical History: Pt has a past medical history of Arthritis, Cancer (HCC), CHF (congestive heart failure) (HCC), Chronic kidney disease requiring chronic dialysis (HCC), COPD (chronic obstructive pulmonary disease) (HCC), Hypertension, Murmur, and Thyroid disease. Surgical History: Pt has a past surgical history that includes triple bypass (2013); left arm fistula (Left); Eye surgery; Cataract extraction; Gallbladder surgery; Appendectomy; Hysterectomy; and Cardiac surgery. Tobacco History Pt reports that she has been smoking cigarettes. She has never used smokeless tobacco. Alcohol History Pt reports no history of alcohol use. Drug Use History Pt reports current drug use. Drug: Marijuana. Family History family history is not on file. OBJECTIVE Vital ranges lat 24 hours Temp: [97.2 ??F (36.2 ??C)-97.5 ??F (36.4 ??C)] 97.4 ??F (36.3 ??C) Pulse: [62-74] 62 Resp: [16-18] 18 BP: (148-189)/(58-82) 154/58 Intake and Output 24 hours: Intake/Output Summary (Last 24 hours) at 06/24/2025 0752 Last data filed at 06/24/2025 0600 Gross per 24 hour Intake 250 ml Output 1 ml Net 249 ml Net I&O this admission: Net IO Since Admission: 249 mL [06/24/25 0752] PHYSICAL EXAMINATION General: Patient was alert and oriented, moderate distress, ill-appearing HEENT: atraumatic and normocephalic, no conjunctival injection, no icterus Neck: supple, no JVD,no bruit, no thyromegaly Chest/Resp: Bilateral crepitations Cardio: S1 and S2 normal, no murmurs, gallops or rubs. Abdomen/GI: The abdomen is soft without tenderness Extremities: + Skin: no rashes Neuro: no focal neurologic deficits grossly AOx3 Inpatient Medications Current Facility-Administered Medications Medication Dose Route Frequency Provider Last Rate Last Admin acetaminophen (TYLENOL) tablet 1,000 mg 1,000 mg oral Q6H PRN Dajuan Banuelos MD aspirin EC tablet 81 mg 81 mg oral Daily Vlad Waters PA-C atorvastatin (LIPITOR) tablet 40 mg 40 mg oral Every Night Vlad Waters PA-C budesonide (PULMICORT) nebulizer suspension 0.5 mg 0.5 mg nebulization 2 times daily Vlad Waters PA-C 0.5 mg at 06/23/252044 carvediloL (COREG) tablet 12.5 mg 12.5 mg oral BID w/breakfast & dinner Vlad Waters PA-C 12.5mg at 06/23/252032 cloNIDine (CATAPRES) tablet 0.1 mg 0.1 mg oral Q8H PRN Vlad Waters PA-C dextrose 50% (D50W) injection 25 g 25 g intravenous Q15 Min PRN Vlad Waters PA-C diphenhydrAMINE (BENADRYL) capsule 25 mg 25 mg oral Every Night PRN Dajuan Banuelos MD glucagon injection 1 mg 1 mg intraMUSCULAR Q15 Min PRN Vlad Waters PA-C glucose chew tab 16 g 16 g oral Q15 Min PRN Vlad Waters PA-C heparin bolus from bag 3,540 Units 60 Units/kg intravenous Q6H PRN Vlad Waters PA-C Or heparin bolus from bag 2,360 Units 40 Units/kg intravenous Q6H PRN Vlad Waters PA-C 2,360 Units at 06/24/25 0743 heparin infusion 25,000 units in sodium chloride 0.45% (NS) 250 mL (100 units/mL) 2-24 Units/kg/hr intravenous Titrated Vlad Waters PA-C 1.2 mL/hr at 06/24/25 0739 2 Units/kg/hr at 06/24/25 0739 hydrALAZINE (APRESOLINE) injection 20 mg 20 mg intravenous TID GARCIA Villagran 20 mg at 033 insulin lispro (HUMALOG, ADMELOG) injection 0-12 Units 0-12 Units subcutaneous 4x Daily AC Vlad Waters PA-C ipratropium-albuteroL (DUO-NEB) 0.5 mg-3 mg(2.5 mg base)/3 mL nebulizer solution 3 mL 3 mL nebulization Q6H PRN Vlad Waters PA-C levothyroxine (SYNTHROID) tablet 88 mcg 88 mcg oral QAM (0600) GARCIA Villagran 88 mcg at 06/24/25 0613 LORazepam (ATIVAN) tablet 0.5 mg 0.5 mg oral Q8H PRN Dajuan Banuelos MD 0.5 mg at 06/23/25 2153 magnesium sulfate IVPB 2 g in sterile water 50 mL (premix) 2 g intravenous Daily PRN Vlad Waters PA-C magnesium sulfate IVPB 2 g in sterile water 50 mL (premix) 2 g intravenous BID PRN Vlad Waters PA-C melatonin tablet 5 mg 5 mg oral Every Night PRN Vlad Waters PA-C morphine injection 2 mg 2 mg intravenous Q4H PRN Vlad Waters PA-C naloxone (NARCAN) injection 0.2 mg 0.2 mg intravenous Q2 Min PRN Dajuan Banuelos MD nitroglycerin (NITROSTAT) tablet 0.4 mg 0.4 mg sublingual Q5 Min PRN Vlad Waters PA-C ondansetron (ZOFRAN-ODT) disintegrating tablet 4 mg 4 mg oral Q8H PRN Vlad Waters PA-C Or ondansetron (ZOFRAN) injection 4 mg 4 mg intravenous Q8H PRN Vlad Waters PA-C oxyCODONE (ROXICODONE) immediate release tablet 10 mg 10 mg oral Q4H PRN Vlad Waters PA-C 10 mg at 06/24/25 0650 pantoprazole (PROTONIX) EC tablet 40 mg 40 mg oral Daily Vlad Waters PA-C 40 mg at 06/23/252032 sodium chloride flush 10 mL 10 mL intravenous PRN Dajuan Banuelos MD Results Review: Labs: WBC Date Value Ref Range Status 06/24/2025 4.6 4.0 - 10.0 K/??L Final 06/23/2025 5.3 4.0 - 10.0 K/??L Final 06/20/2024 3.0 (L) 4.0 - 10.0 K/??L Final Hemoglobin Date Value Ref Range Status 06/24/2025 8.6 (L) 11.2 - 15.7 GM/DL Final 06/23/2025 7.7 (L) 11.2 - 15.7 GM/DL Final 06/21/2024 9.1 (L) 11.2 - 15.7 GM/DL Final Platelets Date Value Ref Range Status 06/24/2025 67 (L) 140 - 375 K/CU MM Final 06/23/2025 71 (L) 140 - 375 K/CU MM Final 06/20/2024 43 (L) 140 - 375 K/CU MM Final Creatinine Date Value Ref Range Status 06/24/2025 2.74 (H) 0.57 - 1.11 mg/dL Final 06/23/2025 2.72 (H) 0.57 - 1.11 mg/dL Final 06/20/2024 4.01 (H) 0.55 - 1.02 mg/dL Final BUN Date Value Ref Range Status 06/24/2025 39.6 (H) 9.8 - 20.1 mg/dL Final 06/23/2025 38.1 (H) 9.8 - 20.1 mg/dL Final 06/20/2024 64 (H) 7 - 22 mg/dL Final Potassium Date Value Ref Range Status 06/24/2025 4.4 3.4 - 5.1 meq/L Final 06/23/2025 4.2 3.4 - 5.1 meq/L Final 06/20/2024 4.2 3.5 - 5.1 meq/L Final Sodium Date Value Ref Range Status 06/24/2025 142 136 - 145 meq/L Final 06/23/2025 141 136 - 145 meq/L Final 06/20/2024 137 136 - 146 meq/L Final Magnesium Date Value Ref Range Status 06/16/2024 1.7 1.5 - 2.4 mg/dL Final 06/06/2024 1.8 1.5 - 2.4 mg/dL Final 06/05/2024 1.9 1.5 - 2.4 mg/dL Final AST Date Value Ref Range Status 06/24/2025 38 (H) 11 - 34 U/L Final Comment: AST2 reagent used for testing does not contain P5P supplementation and therefore may miss AST elevations in patients with B6 deficiency. This population may be as high as 10% in the [place], with risk factors including malabsorption, drug interactions, and alcoholic hepatitis. ALT Date Value Ref Range Status 06/24/2025 13 <=34 U/L Final Comment: ALT2 reagent used for testing does not contain P5P supplementation and therefore may miss ALT elevations in patients with B6 deficiency. This population may be as high as 10% in the [place], with risk factors including malabsorption, drug interactions, and alcoholic hepatitis. Alkaline Phosphatase Date Value Ref Range Status 06/24/2025 247 (H) 40 - 150 U/L Final INR Date Value Ref Range Status 06/23/2025 1.03 0.80 - 1.10 Final Comment: Recommended therapeutic ranges using International Normalized Ratio (INR) are: INR RANGE 2.0 - 3.0 Routine oral anticoagulant therapy 2.5 - 3.5 Oral anticoagulant therapy for patients with thromboembolic events on standard doses of Coumadin and those with mechanical heart valves. Imaging: XR chest AP portable Narrative: FINAL REPORT TECHNIQUE: null CLINICAL HISTORY: Shortness of breath COMPARISON: null FINDINGS: 1 view chest x-ray Comparison: 06/17/2024 Findings: Cardiomegaly with diffuse bilateral consolidation. Bilateral interstitial and vascular prominence. Bilateral pleural effusions also noted. Probable pulmonary edema, pneumonia not excluded. Sternotomy. No acute bony abnormality. Impression: Impression: Probable acute pulmonary edema pattern Authenticated and Problem list: Principal Problem: CHF exacerbation (HCC) Active Problems: Fluid overload Impression and Plan: IMPRESSION: Non-ST elevation [place] Acute heart failure End-stage renal disease on hemodialysis Hypertension Dyslipidemia Diabetes mellitus PLAN: - Would recommend to continue trending troponin till it peaks - Would recommend IV heparin - Would recommend aspirin 81 mg p.o. daily - Would recommend atorvastatin 80 mg p.o. nightly - Would recommend transthoracic echo -Would recommend dialysis today - Keep n.p.o. from midnight for possible coronary angiogram/PCI - Further recommendation pending clinical course documented in this encounter Miscellaneous Notes * Plan of Care - Jasvir Vines LPN - 06/29/2025 7:18 AM EDT Problem: Compromised Skin Integrity Goal: LTG - Patient will be free from infection Outcome: Progressing Goal: LTG - Patient will maintain/improve skin integrity through proper skin care techniques Outcome: Progressing Goal: LTG - Patient will demonstrate appropriate pressure relief techniques Outcome: Progressing Goal: LTG - Patient will demonstrate appropriate skin care techniques Outcome: Progressing Goal: LTG - Patient will be free from infection Outcome: Progressing Goal: STG - Patient demonstrates skin care/treatment/dressing change Outcome: Progressing Goal: STG - Patient will maintain good skin integrity Outcome: Progressing Goal: STG - Patient exhibits signs of wound healing. Outcome: Progressing Goal: STG - Patient demonstrates pressure reduction techniques Outcome: Progressing Goal: STG - Patient demonstrates preventative skin care measures Outcome: Progressing Problem: Knowledge Deficit Goal: Patient/family/caregiver demonstrates understanding of disease process, treatment plan, medications, and discharge instructions Description: Complete learning assessment and assess knowledge base. Outcome: Progressing Problem: Potential for Falls Goal: Patient will remain free of falls Description: Assess and monitor vitals signs, neurological status including level of consciousness and orientation. Reassess fall risk per hospital policy. Ensure arm band on, uncluttered walking paths in room, adequate room lighting, call light and overbed table within reach, bed in low position, wheels locked, side rails up per policy, and non-skid footwear provided. Outcome: Progressing Problem: Spiritual Needs Goal: Ability to function at adequate level Outcome: Progressing Problem: Anxiety Goal: Anxiety is at manageable level Description: Assess and monitor patient's anxiety level. Monitor for signs and symptoms of anxiety both physical and emotional (heart palpitations, chest pain, shortness of breath, headaches, nausea,feeling jumpy, restlessness, irritable, apprehensive). Collaborate with interdisciplinary team and initiate plan and interventions as ordered. Outcome: Progressing Problem: Hemodynamic Status Goal: Patient's vitals signs are stable Description: Assess and monitor patient's heart rate, rhythm, respiratory rate, peripheral pulses, capillary refill, color, body temperature, intake and output, labs and physical activity tolerance. Observe for signs of chest pain (note location, duration, severity, radiation and associated symptoms such as diaphoresis, nausea, indigestion). Monitor for signs and symptoms of heart failure (eg. shortness of breath, edema of feet/ankles/legs, rapid irregular heart rate, coughing, wheezing, white/pink blood tinged sputum, sudden weight gain, chest pain). Collaborate with interdisciplinary team and initiate plan and interventions as ordered. Outcome: Progressing Problem: Activity Intolerance/Impaired Mobility Goal: Mobility/activity is maintained at optimum level for patient Description: Assess and monitor patient barriers to mobility and need for assistive/adaptive devices. Assess patient's emotional response to limitations. Collaborate with interdisciplinary team and initiate plans and interventions as ordered. Outcome: Progressing Problem: Nutrition Goal: Nutritional status is improving Description: Monitor and assess patient for malnutrition (ex- brittle hair, bruises, dry skin, paleskin and conjunctiva, muscle wasting, smooth red tongue, and disorientation). Collaborate with interdisciplinary team and initiate plan and interventions as ordered. Monitor patient's weight and dietary intake as ordered or per policy. Utilize nutrition screening tool and intervene per policy. Determine patient's food preferences and provide high-protein, high- caloric foods as appropriate. Outcome: Progressing Problem: CV: Dysrhythmia Goal: Patient achieves/maintains stable cardiac rhythm Outcome: Progressing Problem: Inadequate Tissue Perfusion - Arterial Goal: Tissue perfusion is adequate - arterial Description: Assess and monitor skin color and temperature, skin integrity, pulses, capillary refill, edema, pain in extremities, and labs. Assess patients feelings of being cold and apply more clothing/blankets as needed to maintain vasodilation. Collaborate with interdisciplinary team and initiate plans and interventions as needed. Outcome: Progressing Problem: Inadequate Tissue Perfusion - Venous Goal: Tissue perfusion is adequate - venous Description: Assess and monitor skin color and temperature, skin integrity, pulses, capillary refill, edema, pain in extremities, Homans' sign, labs (D- dimer), and diagnostic tests (ultrasound, CT scan, VQ scan). Monitor for signs and symptoms of deep vein thrombosis (swelling of calf/thigh, redness, pain, tenderness). Monitor for signs and symptoms of pulmonary embolism (dyspnea, tachypnea, tachycardia). Collaborate with interdisciplinary team and initiate plans and interventions as needed. Outcome: Progressing Problem: HEMATOLOGIC Goal: Maintains hematologic stability Outcome: Progressing Problem: NEUROSENSORY Goal: Achieves stable or improved neurological status Description: INTERVENTIONS Outcome: Progressing Goal: Absence of seizures Description: INTERVENTIONS Outcome: Progressing Goal: Remains free of injury related to seizures activity Description: INTERVENTIONS Outcome: Progressing Goal: Achieves maximal functionality and self care Outcome: Progressing Problem: CARDIOVASCULAR Goal: Maintains optimal cardiac output and hemodynamic stability Outcome: Progressing Goal: Absence of cardiac dysrhythmias or at baseline Outcome: Progressing Goal: Adequate perfusion restored to affected area post thrombosis Outcome: Progressing Problem: RESPIRATORY Goal: Achieves optimal ventilation and oxygenation Outcome: Progressing Problem: GASTROINTESTINAL Goal: Minimal or absence of nausea and vomiting Outcome: Progressing Goal: Maintains or returns to baseline bowel function Description: INTERVENTIONS Outcome: Progressing Goal: Establish and maintain optimal ostomy function Outcome: Progressing Problem: GENITOURINARY Goal: Absence of urinary retention Outcome: Progressing Goal: Urinary catheter remains patent Outcome: Progressing Problem: METABOLIC/FLUID AND ELECTROLYTES Goal: Electrolytes maintained within normal limits Outcome: Progressing Goal: Hemodynamic stability and optimal renal function maintained Outcome: Progressing Goal: Glucose maintained within prescribed range Outcome: Progressing Problem: SKIN/TISSUE INTEGRITY Goal: Skin integrity intact Outcome: Progressing Goal: Incision(s), wounds(s) or drain site(s) healing without S/S of infection Outcome: Progressing Goal: Oral mucous membranes intact Outcome: Progressing Problem: MUSCULOSKELETAL Goal: Return mobility to safest level of function Outcome: Progressing Goal: Maintain proper alignment of affected body part Outcome: Progressing Goal: Return ADL status to a safe level of function Description: INTERVENTIONS: Outcome: Progressing Problem: RISK FOR SUICIDE Goal: Patient will verbalize decrease insuicidual thoughts/ideation within baseline level of functioning. Outcome: Progressing Goal: Patient will identify risk/related factors with patient/significant other and discuss adaptive coping strategies and establish safety plan. Outcome: Progressing Problem: KNOWLEDGE DEFICIT Goal: Pt/family/caregiver demonstrates understanding of disease process, treatment plan, medications and/or discharge instructions Outcome: Progressing * [facility] - 06/28/2025 12:53 PM EDT concurrent medical issues make increased risk for sedation and invasive endoscopy, at this time sheis not having active GI bleeding, Hgb has been stable overnight. We discussed potential EGD/colonoscopy to evaluate for occult GI bleeding. Yesterday family wanted to proceed with watchful waiting and avoid invasive procedures. Patient is lethargic but oriented today, family was not at bedside today during my visit, patient does not want to pursue endoscopy. GI will sign off at this time, please call back if needed. * Plan of Care - Paloma Sawyer RN - 06/28/2025 12:04 PM EDT Problem: Compromised Skin Integrity Goal: LTG - Patient will be free from infection Outcome: Progressing Goal: LTG - Patient will maintain/improve skin integrity through proper skin care techniques Outcome: Progressing Goal: LTG - Patient will demonstrate appropriate pressure relief techniques Outcome: Progressing Goal: LTG - Patient will demonstrate appropriate skin care techniques Outcome: Progressing Goal: LTG - Patient will be free from infection Outcome: Progressing Goal: STG - Patient demonstrates skin care/treatment/dressing change Outcome: Progressing Goal: STG - Patient will maintain good skin integrity Outcome: Progressing Goal: STG - Patient exhibits signs of wound healing. Outcome: Progressing Goal: STG - Patient demonstrates pressure reduction techniques Outcome: Progressing Goal: STG - Patient demonstrates preventative skin care measures Outcome: Progressing Problem: Knowledge Deficit Goal: Patient/family/caregiver demonstrates understanding of disease process, treatment plan, medications, and discharge instructions Description: Complete learning assessment and assess knowledge base. Outcome: Progressing Problem: Potential for Falls Goal: Patient will remain free of falls Description: Assess and monitor vitals signs, neurological status including level of consciousness and orientation. Reassess fall risk per hospital policy. Ensure arm band on, uncluttered walking paths in room, adequate room lighting, call light and overbed table within reach, bed in low position, wheels locked, side rails up per policy, and non-skid footwear provided. Outcome: Progressing Problem: Spiritual Needs Goal: Ability to function at adequate level Outcome: Progressing Problem: Anxiety Goal: Anxiety is at manageable level Description: Assess and monitor patient's anxiety level. Monitor for signs and symptoms of anxiety both physical and emotional (heart palpitations, chest pain, shortness of breath, headaches, nausea,feeling jumpy, restlessness, irritable, apprehensive). Collaborate with interdisciplinary team and initiate plan and interventions as ordered. Outcome: Progressing Problem: Hemodynamic Status Goal: Patient's vitals signs are stable Description: Assess and monitor patient's heart rate, rhythm, respiratory rate, peripheral pulses, capillary refill, color, body temperature, intake and output, labs and physical activity tolerance. Observe for signs of chest pain (note location, duration, severity, radiation and associated symptoms such as diaphoresis, nausea, indigestion). Monitor for signs and symptoms of heart failure (eg. shortness of breath, edema of feet/ankles/legs, rapid irregular heart rate, coughing, wheezing, white/pink blood tinged sputum, sudden weight gain, chest pain). Collaborate with interdisciplinary team and initiate plan and interventions as ordered. Outcome: Progressing Problem: Activity Intolerance/Impaired Mobility Goal: Mobility/activity is maintained at optimum level for patient Description: Assess and monitor patient barriers to mobility and need for assistive/adaptive devices. Assess patient's emotional response to limitations. Collaborate with interdisciplinary team and initiate plans and interventions as ordered. Outcome: Progressing Problem: Nutrition Goal: Nutritional status is improving Description: Monitor and assess patient for malnutrition (ex- brittle hair, bruises, dry skin, paleskin and conjunctiva, muscle wasting, smooth red tongue, and disorientation). Collaborate with interdisciplinary team and initiate plan and interventions as ordered. Monitor patient's weight and dietary intake as ordered or per policy. Utilize nutrition screening tool and intervene per policy. Determine patient's food preferences and provide high-protein, high- caloric foods as appropriate. Outcome: Progressing Problem: CV: Dysrhythmia Goal: Patient achieves/maintains stable cardiac rhythm Outcome: Progressing Problem: Inadequate Tissue Perfusion - Arterial Goal: Tissue perfusion is adequate - arterial Description: Assess and monitor skin color and temperature, skin integrity, pulses, capillary refill, edema, pain in extremities, and labs. Assess patients feelings of being cold and apply more clothing/blankets as needed to maintain vasodilation. Collaborate with interdisciplinary team and initiate plans and interventions as needed. Outcome: Progressing Problem: Inadequate Tissue Perfusion - Venous Goal: Tissue perfusion is adequate - venous Description: Assess and monitor skin color and temperature, skin integrity, pulses, capillary refill, edema, pain in extremities, Homans' sign, labs (D- dimer), and diagnostic tests (ultrasound, CT scan, VQ scan). Monitor for signs and symptoms of deep vein thrombosis (swelling of calf/thigh, redness, pain, tenderness). Monitor for signs and symptoms of pulmonary embolism (dyspnea, tachypnea, tachycardia). Collaborate with interdisciplinary team and initiate plans and interventions as needed. Outcome: Progressing Problem: HEMATOLOGIC Goal: Maintains hematologic stability Outcome: Progressing Problem: NEUROSENSORY Goal: Achieves stable or improved neurological status Description: INTERVENTIONS Outcome: Progressing Goal: Absence of seizures Description: INTERVENTIONS Outcome: Progressing Goal: Remains free of injury related to seizures activity Description: INTERVENTIONS Outcome: Progressing Goal: Achieves maximal functionality and self care Outcome: Progressing Problem: CARDIOVASCULAR Goal: Maintains optimal cardiac output and hemodynamic stability Outcome: Progressing Goal: Absence of cardiac dysrhythmias or at baseline Outcome: Progressing Goal: Adequate perfusion restored to affected area post thrombosis Outcome: Progressing Problem: RESPIRATORY Goal: Achieves optimal ventilation and oxygenation Outcome: Progressing Problem: GASTROINTESTINAL Goal: Minimal or absence of nausea and vomiting Outcome: Progressing Goal: Maintains or returns to baseline bowel function Description: INTERVENTIONS Outcome: Progressing Goal: Establish and maintain optimal ostomy function Outcome: Progressing Problem: GENITOURINARY Goal: Absence of urinary retention Outcome: Progressing Goal: Urinary catheter remains patent Outcome: Progressing Problem: METABOLIC/FLUID AND ELECTROLYTES Goal: Electrolytes maintained within normal limits Outcome: Progressing Goal: Hemodynamic stability and optimal renal function maintained Outcome: Progressing Goal: Glucose maintained within prescribed range Outcome: Progressing Problem: SKIN/TISSUE INTEGRITY Goal: Skin integrity intact Outcome: Progressing Goal: Incision(s), wounds(s) or drain site(s) healing without S/S of infection Outcome: Progressing Goal: Oral mucous membranes intact Outcome: Progressing Problem: MUSCULOSKELETAL Goal: Return mobility to safest level of function Outcome: Progressing Goal: Maintain proper alignment of affected body part Outcome: Progressing Goal: Return ADL status to a safe level of function Description: INTERVENTIONS: Outcome: Progressing Problem: RISK FOR SUICIDE Goal: Patient will verbalize decrease insuicidual thoughts/ideation within baseline level of functioning. Outcome: Progressing Goal: Patient will identify risk/related factors with patient/significant other and discuss adaptive coping strategies and establish safety plan. Outcome: Progressing Problem: KNOWLEDGE DEFICIT Goal: Pt/family/caregiver demonstrates understanding of disease process, treatment plan, medications and/or discharge instructions Outcome: Progressing * Plan of Care - Garrison Harris RN - 06/28/2025 1:44 AM EDT Problem: Compromised Skin Integrity Goal: LTG - Patient will be free from infection Outcome: Progressing Goal: STG - Patient will maintain good skin integrity Outcome: Progressing Problem: Potential for Falls Goal: Patient will remain free of falls Description: Assess and monitor vitals signs, neurological status including level of consciousness and orientation. Reassess fall risk per hospital policy. Ensure arm band on, uncluttered walking paths in room, adequate room lighting, call light and overbed table within reach, bed in low position, wheels locked, side rails up per policy, and non-skid footwear provided. Outcome: Progressing Problem: Hemodynamic Status Goal: Patient's vitals signs are stable Description: Assess and monitor patient's heart rate, rhythm, respiratory rate, peripheral pulses, capillary refill, color, body temperature, intake and output, labs and physical activity tolerance. Observe for signs of chest pain (note location, duration, severity, radiation and associated symptoms such as diaphoresis, nausea, indigestion). Monitor for signs and symptoms of heart failure (eg. shortness of breath, edema of feet/ankles/legs, rapid irregular heart rate, coughing, wheezing, white/pink blood tinged sputum, sudden weight gain, chest pain). Collaborate with interdisciplinary team and initiate plan and interventions as ordered. Outcome: Progressing * Plan of Care - Citlalli Wood RN - 06/26/2025 8:32 PM EDT Problem: Compromised Skin Integrity Goal: LTG - Patient will be free from infection Outcome: Progressing Goal: LTG - Patient will maintain/improve skin integrity through proper skin care techniques Outcome: Progressing Goal: LTG - Patient will demonstrate appropriate pressure relief techniques Outcome: Progressing Goal: LTG - Patient will demonstrate appropriate skin care techniques Outcome: Progressing Goal: LTG - Patient will be free from infection Outcome: Progressing Goal: STG - Patient demonstrates skin care/treatment/dressing change Outcome: Progressing Goal: STG - Patient will maintain good skin integrity Outcome: Progressing Goal: STG - Patient exhibits signs of wound healing. Outcome: Progressing Goal: STG - Patient demonstrates pressure reduction techniques Outcome: Progressing Goal: STG - Patient demonstrates preventative skin care measures Outcome: Progressing Problem: Knowledge Deficit Goal: Patient/family/caregiver demonstrates understanding of disease process, treatment plan, medications, and discharge instructions Description: Complete learning assessment and assess knowledge base. Outcome: Progressing Problem: Potential for Falls Goal: Patient will remain free of falls Description: Assess and monitor vitals signs, neurological status including level of consciousness and orientation. Reassess fall risk per hospital policy. Ensure arm band on, uncluttered walking paths in room, adequate room lighting, call light and overbed table within reach, bed in low position, wheels locked, side rails up per policy, and non-skid footwear provided. Outcome: Progressing Problem: Spiritual Needs Goal: Ability to function at adequate level Outcome: Progressing Problem: Anxiety Goal: Anxiety is at manageable level Description: Assess and monitor patient's anxiety level. Monitor for signs and symptoms of anxiety both physical and emotional (heart palpitations, chest pain, shortness of breath, headaches, nausea,feeling jumpy, restlessness, irritable, apprehensive). Collaborate with interdisciplinary team and initiate plan and interventions as ordered. Outcome: Progressing Problem: Hemodynamic Status Goal: Patient's vitals signs are stable Description: Assess and monitor patient's heart rate, rhythm, respiratory rate, peripheral pulses, capillary refill, color, body temperature, intake and output, labs and physical activity tolerance. Observe for signs of chest pain (note location, duration, severity, radiation and associated symptoms such as diaphoresis, nausea, indigestion). Monitor for signs and symptoms of heart failure (eg. shortness of breath, edema of feet/ankles/legs, rapid irregular heart rate, coughing, wheezing, white/pink blood tinged sputum, sudden weight gain, chest pain). Collaborate with interdisciplinary team and initiate plan and interventions as ordered. Outcome: Progressing Problem: Activity Intolerance/Impaired Mobility Goal: Mobility/activity is maintained at optimum level for patient Description: Assess and monitor patient barriers to mobility and need for assistive/adaptive devices. Assess patient's emotional response to limitations. Collaborate with interdisciplinary team and initiate plans and interventions as ordered. Outcome: Progressing Problem: Nutrition Goal: Nutritional status is improving Description: Monitor and assess patient for malnutrition (ex- brittle hair, bruises, dry skin, paleskin and conjunctiva, muscle wasting, smooth red tongue, and disorientation). Collaborate with interdisciplinary team and initiate plan and interventions as ordered. Monitor patient's weight and dietary intake as ordered or per policy. Utilize nutrition screening tool and intervene per policy. Determine patient's food preferences and provide high-protein, high- caloric foods as appropriate. Outcome: Progressing Problem: CV: Dysrhythmia Goal: Patient achieves/maintains stable cardiac rhythm Outcome: Progressing Problem: Inadequate Tissue Perfusion - Arterial Goal: Tissue perfusion is adequate - arterial Description: Assess and monitor skin color and temperature, skin integrity, pulses, capillary refill, edema, pain in extremities, and labs. Assess patients feelings of being cold and apply more clothing/blankets as needed to maintain vasodilation. Collaborate with interdisciplinary team and initiate plans and interventions as needed. Outcome: Progressing Problem: Inadequate Tissue Perfusion - Venous Goal: Tissue perfusion is adequate - venous Description: Assess and monitor skin color and temperature, skin integrity, pulses, capillary refill, edema, pain in extremities, Homans' sign, labs (D- dimer), and diagnostic tests (ultrasound, CT scan, VQ scan). Monitor for signs and symptoms of deep vein thrombosis (swelling of calf/thigh, redness, pain, tenderness). Monitor for signs and symptoms of pulmonary embolism (dyspnea, tachypnea, tachycardia). Collaborate with interdisciplinary team and initiate plans and interventions as needed. Outcome: Progressing * Plan of Care - Citlalli Wood RN - 06/25/2025 9:20 PM EDT Problem: Compromised Skin Integrity Goal: LTG - Patient will be free from infection Outcome: Progressing Goal: LTG - Patient will maintain/improve skin integrity through proper skin care techniques Outcome: Progressing Goal: LTG - Patient will demonstrate appropriate pressure relief techniques Outcome: Progressing Goal: LTG - Patient will demonstrate appropriate skin care techniques Outcome: Progressing Goal: LTG - Patient will be free from infection Outcome: Progressing Goal: STG - Patient demonstrates skin care/treatment/dressing change Outcome: Progressing Goal: STG - Patient will maintain good skin integrity Outcome: Progressing Goal: STG - Patient exhibits signs of wound healing. Outcome: Progressing Goal: STG - Patient demonstrates pressure reduction techniques Outcome: Progressing Goal: STG - Patient demonstrates preventative skin care measures Outcome: Progressing Problem: Knowledge Deficit Goal: Patient/family/caregiver demonstrates understanding of disease process, treatment plan, medications, and discharge instructions Description: Complete learning assessment and assess knowledge base. Outcome: Progressing Problem: Potential for Falls Goal: Patient will remain free of falls Description: Assess and monitor vitals signs, neurological status including level of consciousness and orientation. Reassess fall risk per hospital policy. Ensure arm band on, uncluttered walking paths in room, adequate room lighting, call light and overbed table within reach, bed in low position, wheels locked, side rails up per policy, and non-skid footwear provided. Outcome: Progressing Problem: Spiritual Needs Goal: Ability to function at adequate level Outcome: Progressing Problem: Anxiety Goal: Anxiety is at manageable level Description: Assess and monitor patient's anxiety level. Monitor for signs and symptoms of anxiety both physical and emotional (heart palpitations, chest pain, shortness of breath, headaches, nausea,feeling jumpy, restlessness, irritable, apprehensive). Collaborate with interdisciplinary team and initiate plan and interventions as ordered. Outcome: Progressing Problem: Hemodynamic Status Goal: Patient's vitals signs are stable Description: Assess and monitor patient's heart rate, rhythm, respiratory rate, peripheral pulses, capillary refill, color, body temperature, intake and output, labs and physical activity tolerance. Observe for signs of chest pain (note location, duration, severity, radiation and associated symptoms such as diaphoresis, nausea, indigestion). Monitor for signs and symptoms of heart failure (eg. shortness of breath, edema of feet/ankles/legs, rapid irregular heart rate, coughing, wheezing, white/pink blood tinged sputum, sudden weight gain, chest pain). Collaborate with interdisciplinary team and initiate plan and interventions as ordered. Outcome: Progressing Problem: Activity Intolerance/Impaired Mobility Goal: Mobility/activity is maintained at optimum level for patient Description: Assess and monitor patient barriers to mobility and need for assistive/adaptive devices. Assess patient's emotional response to limitations. Collaborate with interdisciplinary team and initiate plans and interventions as ordered. Outcome: Progressing Problem: Nutrition Goal: Nutritional status is improving Description: Monitor and assess patient for malnutrition (ex- brittle hair, bruises, dry skin, paleskin and conjunctiva, muscle wasting, smooth red tongue, and disorientation). Collaborate with interdisciplinary team and initiate plan and interventions as ordered. Monitor patient's weight and dietary intake as ordered or per policy. Utilize nutrition screening tool and intervene per policy. Determine patient's food preferences and provide high-protein, high- caloric foods as appropriate. Outcome: Progressing Problem: CV: Dysrhythmia Goal: Patient achieves/maintains stable cardiac rhythm Outcome: Progressing Problem: Inadequate Tissue Perfusion - Arterial Goal: Tissue perfusion is adequate - arterial Description: Assess and monitor skin color and temperature, skin integrity, pulses, capillary refill, edema, pain in extremities, and labs. Assess patients feelings of being cold and apply more clothing/blankets as needed to maintain vasodilation. Collaborate with interdisciplinary team and initiate plans and interventions as needed. Outcome: Progressing Problem: Inadequate Tissue Perfusion - Venous Goal: Tissue perfusion is adequate - venous Description: Assess and monitor skin color and temperature, skin integrity, pulses, capillary refill, edema, pain in extremities, Homans' sign, labs (D- dimer), and diagnostic tests (ultrasound, CT scan, VQ scan). Monitor for signs and symptoms of deep vein thrombosis (swelling of calf/thigh, redness, pain, tenderness). Monitor for signs and symptoms of pulmonary embolism (dyspnea, tachypnea, tachycardia). Collaborate with interdisciplinary team and initiate plans and interventions as needed. Outcome: Progressing * Plan of Care - Citlalli Wood RN - 06/24/2025 8:30 PM EDT Problem: Compromised Skin Integrity Goal: LTG - Patient will be free from infection Outcome: Progressing Goal: LTG - Patient will maintain/improve skin integrity through proper skin care techniques Outcome: Progressing Goal: LTG - Patient will demonstrate appropriate pressure relief techniques Outcome: Progressing Goal: LTG - Patient will demonstrate appropriate skin care techniques Outcome: Progressing Goal: LTG - Patient will be free from infection Outcome: Progressing Goal: STG - Patient demonstrates skin care/treatment/dressing change Outcome: Progressing Goal: STG - Patient will maintain good skin integrity Outcome: Progressing Goal: STG - Patient exhibits signs of wound healing. Outcome: Progressing Goal: STG - Patient demonstrates pressure reduction techniques Outcome: Progressing Goal: STG - Patient demonstrates preventative skin care measures Outcome: Progressing Problem: Knowledge Deficit Goal: Patient/family/caregiver demonstrates understanding of disease process, treatment plan, medications, and discharge instructions Description: Complete learning assessment and assess knowledge base. Outcome: Progressing Problem: Potential for Falls Goal: Patient will remain free of falls Description: Assess and monitor vitals signs, neurological status including level of consciousness and orientation. Reassess fall risk per hospital policy. Ensure arm band on, uncluttered walking paths in room, adequate room lighting, call light and overbed table within reach, bed in low position, wheels locked, side rails up per policy, and non-skid footwear provided. Outcome: Progressing Problem: Spiritual Needs Goal: Ability to function at adequate level Outcome: Progressing Problem: Anxiety Goal: Anxiety is at manageable level Description: Assess and monitor patient's anxiety level. Monitor for signs and symptoms of anxiety both physical and emotional (heart palpitations, chest pain, shortness of breath, headaches, nausea,feeling jumpy, restlessness, irritable, apprehensive). Collaborate with interdisciplinary team and initiate plan and interventions as ordered. Outcome: Progressing Problem: Hemodynamic Status Goal: Patient's vitals signs are stable Description: Assess and monitor patient's heart rate, rhythm, respiratory rate, peripheral pulses, capillary refill, color, body temperature, intake and output, labs and physical activity tolerance. Observe for signs of chest pain (note location, duration, severity, radiation and associated symptoms such as diaphoresis, nausea, indigestion). Monitor for signs and symptoms of heart failure (eg. shortness of breath, edema of feet/ankles/legs, rapid irregular heart rate, coughing, wheezing, white/pink blood tinged sputum, sudden weight gain, chest pain). Collaborate with interdisciplinary team and initiate plan and interventions as ordered. Outcome: Progressing Problem: Activity Intolerance/Impaired Mobility Goal: Mobility/activity is maintained at optimum level for patient Description: Assess and monitor patient barriers to mobility and need for assistive/adaptive devices. Assess patient's emotional response to limitations. Collaborate with interdisciplinary team and initiate plans and interventions as ordered. Outcome: Progressing Problem: Nutrition Goal: Nutritional status is improving Description: Monitor and assess patient for malnutrition (ex- brittle hair, bruises, dry skin, paleskin and conjunctiva, muscle wasting, smooth red tongue, and disorientation). Collaborate with interdisciplinary team and initiate plan and interventions as ordered. Monitor patient's weight and dietary intake as ordered or per policy. Utilize nutrition screening tool and intervene per policy. Determine patient's food preferences and provide high-protein, high- caloric foods as appropriate. Outcome: Progressing Problem: CV: Dysrhythmia Goal: Patient achieves/maintains stable cardiac rhythm Outcome: Progressing Problem: Inadequate Tissue Perfusion - Arterial Goal: Tissue perfusion is adequate - arterial Description: Assess and monitor skin color and temperature, skin integrity, pulses, capillary refill, edema, pain in extremities, and labs. Assess patients feelings of being cold and apply more clothing/blankets as needed to maintain vasodilation. Collaborate with interdisciplinary team and initiate plans and interventions as needed. Outcome: Progressing Problem: Inadequate Tissue Perfusion - Venous Goal: Tissue perfusion is adequate - venous Description: Assess and monitor skin color and temperature, skin integrity, pulses, capillary refill, edema, pain in extremities, Homans' sign, labs (D- dimer), and diagnostic tests (ultrasound, CT scan, VQ scan). Monitor for signs and symptoms of deep vein thrombosis (swelling of calf/thigh, redness, pain, tenderness). Monitor for signs and symptoms of pulmonary embolism (dyspnea, tachypnea, tachycardia). Collaborate with interdisciplinary team and initiate plans and interventions as needed. Outcome: Progressing * Plan of Care - Velma Brantley RN - 06/24/2025 12:58 PM EDT Problem: Compromised Skin Integrity Goal: STG - Patient will maintain good skin integrity Outcome: Progressing Problem: Potential for Falls Goal: Patient will remain free of falls Description: Assess and monitor vitals signs, neurological status including level of consciousness and orientation. Reassess fall risk per hospital policy. Ensure arm band on, uncluttered walking paths in room, adequate room lighting, call light and overbed table within reach, bed in low position, wheels locked, side rails up per policy, and non-skid footwear provided. Outcome: Progressing Problem: Anxiety Goal: Anxiety is at manageable level Description: Assess and monitor patient's anxiety level. Monitor for signs and symptoms of anxiety both physical and emotional (heart palpitations, chest pain, shortness of breath, headaches, nausea,feeling jumpy, restlessness, irritable, apprehensive). Collaborate with interdisciplinary team and initiate plan and interventions as ordered. Outcome: Progressing * Plan of Care - Shiraz Marsh MD - 06/24/2025 10:34 AM EDTSummary: Nephrology Consultation is noted, chart is reviewed, patient was seen before by Dr. Moreno, will defer the consultation to his service, thank you * Plan of Care - Velma Brantley RN - 06/23/2025 7:19 PM EDT Problem: Compromised Skin Integrity Goal: LTG - Patient will be free from infection Outcome: Progressing Goal: LTG - Patient will maintain/improve skin integrity through proper skin care techniques Outcome: Progressing Goal: LTG - Patient will demonstrate appropriate pressure relief techniques Outcome: Progressing Goal: LTG - Patient will demonstrate appropriate skin care techniques Outcome: Progressing Goal: LTG - Patient will be free from infection Outcome: Progressing Goal: STG - Patient demonstrates skin care/treatment/dressing change Outcome: Progressing Goal: STG - Patient will maintain good skin integrity Outcome: Progressing Goal: STG - Patient exhibits signs of wound healing. Outcome: Progressing Goal: STG - Patient demonstrates pressure reduction techniques Outcome: Progressing Goal: STG - Patient demonstrates preventative skin care measures Outcome: Progressing Problem: Knowledge Deficit Goal: Patient/family/caregiver demonstrates understanding of disease process, treatment plan, medications, and discharge instructions Description: Complete learning assessment and assess knowledge base. Outcome: Progressing Problem: Potential for Falls Goal: Patient will remain free of falls Description: Assess and monitor vitals signs, neurological status including level of consciousness and orientation. Reassess fall risk per hospital policy. Ensure arm band on, uncluttered walking paths in room, adequate room lighting, call light and overbed table within reach, bed in low position, wheels locked, side rails up per policy, and non-skid footwear provided. Outcome: Progressing Problem: Spiritual Needs Goal: Ability to function at adequate level Outcome: Progressing Problem: Anxiety Goal: Anxiety is at manageable level Description: Assess and monitor patient's anxiety level. Monitor for signs and symptoms of anxiety both physical and emotional (heart palpitations, chest pain, shortness of breath, headaches, nausea,feeling jumpy, restlessness, irritable, apprehensive). Collaborate with interdisciplinary team and initiate plan and interventions as ordered. Outcome: Progressing Problem: Hemodynamic Status Goal: Patient's vitals signs are stable Description: Assess and monitor patient's heart rate, rhythm, respiratory rate, peripheral pulses, capillary refill, color, body temperature, intake and output, labs and physical activity tolerance. Observe for signs of chest pain (note location, duration, severity, radiation and associated symptoms such as diaphoresis, nausea, indigestion). Monitor for signs and symptoms of heart failure (eg. shortness of breath, edema of feet/ankles/legs, rapid irregular heart rate, coughing, wheezing, white/pink blood tinged sputum, sudden weight gain, chest pain). Collaborate with interdisciplinary team and initiate plan and interventions as ordered. Outcome: Progressing Problem: Activity Intolerance/Impaired Mobility Goal: Mobility/activity is maintained at optimum level for patient Description: Assess and monitor patient barriers to mobility and need for assistive/adaptive devices. Assess patient's emotional response to limitations. Collaborate with interdisciplinary team and initiate plans and interventions as ordered. Outcome: Progressing Problem: Nutrition Goal: Nutritional status is improving Description: Monitor and assess patient for malnutrition (ex- brittle hair, bruises, dry skin, paleskin and conjunctiva, muscle wasting, smooth red tongue, and disorientation). Collaborate with interdisciplinary team and initiate plan and interventions as ordered. Monitor patient's weight and dietary intake as ordered or per policy. Utilize nutrition screening tool and intervene per policy. Determine patient's food preferences and provide high-protein, high- caloric foods as appropriate. Outcome: Progressing Problem: CV: Dysrhythmia Goal: Patient achieves/maintains stable cardiac rhythm Outcome: Progressing Problem: Inadequate Tissue Perfusion - Arterial Goal: Tissue perfusion is adequate - arterial Description: Assess and monitor skin color and temperature, skin integrity, pulses, capillary refill, edema, pain in extremities, and labs. Assess patients feelings of being cold and apply more clothing/blankets as needed to maintain vasodilation. Collaborate with interdisciplinary team and initiate plans and interventions as needed. Outcome: Progressing Problem: Inadequate Tissue Perfusion - Venous Goal: Tissue perfusion is adequate - venous Description: Assess and monitor skin color and temperature, skin integrity, pulses, capillary refill, edema, pain in extremities, Homans' sign, labs (D- dimer), and diagnostic tests (ultrasound, CT scan, VQ scan). Monitor for signs and symptoms of deep vein thrombosis (swelling of calf/thigh, redness, pain, tenderness). Monitor for signs and symptoms of pulmonary embolism (dyspnea, tachypnea, tachycardia). Collaborate with interdisciplinary team and initiate plans and interventions as needed. Outcome: Progressing documented in this encounter Plan of Treatment Pending Results Name Type Priority Associated Diagnoses Date /Time Fungus Culture W/TERRI Or Jocelin Ink Microbiology Routine Mass of lung Pleural effusion on right 06/24/2025 2:06 PM EDT Scheduled Orders Name Type Priority Associated Diagnoses Orde r Schedule Lactate dehydrogenase (LDH), body fluid Microbiology Routine Tomorrow AM fo r 1 Occurrences starting 06/24/2025 until 06/24/2025 Body fluid cell count with differential Microbiology Routine Tomorrow AM fo r 1 Occurrences starting 06/24/2025 until 06/24/2025 Body Fluid Culture + Gram Stain Microbiology Routine Tomorrow AM for 1 Occurrences starting 06/24/2025 until 06/24/2025 documented as of this encounter Procedures Procedure Name Priority Date/Time Associated Diagnosis Comments CBC W/ AUTO DIFF STAT 06/29/2025 10:3 0 AM EDT NOVA GLUCOSE POC Routine 06/29/2025 6:06 AM EDT NOVA GLUCOSE POC Routine 06/28/2025 7:58 PM EDT NOVA GLUCOSE POC Routine 06/28/2025 6:50 PM EDT NOVA GLUCOSE POC Routine 06/28/2025 11:2 0 AM EDT FS_SJH_MODEL_HEMODIAL YSIS INPATIENT Routine 06/28/2025 9:35 AM EDT NOVA GLUCOSE POC Routine 06/28/2025 5:34 AM EDT CBC W/ AUTO DIFF Routine 06/28/2025 2:34 AM EDT MAGNESIUM Routine 06/28/2025 2:34 AM EDT COMPREHENSIVE METABOLIC PANEL Routine 06/28/2025 2:34 AM EDT NOVA GLUCOSE POC Routine 06/27/2025 7:59 PM EDT HEMOGLOBIN AND HEMATOCRIT STAT 06/27/2025 7:53 PM EDT NOVA GLUCOSE POC Routine 06/27/2025 3:52 PM EDT NOVA GLUCOSE POC Routine 06/27/2025 11:3 2 AM EDT FS_MODEL_IP_TRANSFUSE RED BLOOD CELLS Routine 06/27/2025 11:25 AM EDT PTT HEPARIN PROTOCOL Routine 06/27/2025 10:07 AM EDT FS_MODEL_IP_PREPARE RBC Routine 06/27/2025 9:47 AM EDT NOVA GLUCOSE POC Routine 06/27/2025 5:14 AM EDT [facility] CBC SCAN Routine 06/27/2025 3:06 AM EDT CBC W/ AUTO DIFF Routine 06/27/2025 3:06 AM EDT MAGNESIUM Routine 06/27/2025 3:06 AM EDT COMPREHENSIVE METABOLIC PANEL Routine 06/27/2025 3:06 AM EDT PTT HEPARIN PROTOCOL Routine 06/26/2025 11:57 PM EDT NOVA GLUCOSE POC Routine 06/26/2025 8:12 PM EDT PTT HEPARIN PROTOCOL Routine 06/26/2025 6:24 PM EDT NOVA GLUCOSE POC Routine 06/26/2025 10:5 6 AM EDT [facility] CBC SCAN Routine 06/26/2025 8:11 AM EDT CBC W/ AUTO DIFF Routine 06/26/2025 8:11 AM EDT PTT HEPARIN PROTOCOL Routine 06/26/2025 8:11 AM EDT NOVA GLUCOSE POC Routine 06/26/2025 5:09 AM EDT [facility] CBC SCAN Routine 06/26/2025 1:18 AM EDT CBC W/ AUTO DIFF Routine 06/26/2025 1:18 AM EDT PHOSPHORUS Routine 06/26/2025 1:18 AM EDT MAGNESIUM Routine 06/26/2025 1:18 AM EDT COMPREHENSIVE METABOLIC PANEL Routine 06/26/2025 1:18 AM EDT PTT HEPARIN PROTOCOL Routine 06/26/2025 1:17 AM EDT HEMOGLOBIN AND HEMATOCRIT STAT 06/25/2025 8:21 PM EDT NOVA GLUCOSE POC Routine 06/25/2025 7:08 PM EDT PTT HEPARIN PROTOCOL Routine 06/25/2025 6:21 PM EDT NOVA GLUCOSE POC Routine 06/25/2025 4:03 PM EDT FS_MODEL_IP_TRANSFUSE RED BLOOD CELLS Routine 06/25/2025 11:24 AM EDT NOVA GLUCOSE POC Routine 06/25/2025 10:4 6 AM EDT PTT HEPARIN PROTOCOL Routine 06/25/2025 10:26 AM EDT PROTHROMBIN TIME/INR Add-On 06/25/2025 10:26 AM EDT TYPE AND SCREEN ([place] BKR) Routine 06/25/2025 9:11 AM EDT FS_MODEL_IP_PREPARE RBC Routine 06/25/2025 8:37 AM EDT PTT HEPARIN PROTOCOL Routine 06/25/2025 7:47 AM EDT [facility] CBC SCAN Routine 06/25/2025 7:46 AM EDT CBC W/ AUTO DIFF Routine 06/25/2025 7:46 AM EDT NOVA GLUCOSE POC Routine 06/25/2025 4:59 AM EDT [facility] CBC SCAN Routine 06/24/2025 9:22 PM EDT CBC W/ AUTO DIFF STAT 06/24/2025 9:22 PM EDT PTT HEPARIN PROTOCOL Routine 06/24/2025 9:22 PM EDT PT/INR, PTT STAT 06/24/2025 9:22 PM EDT NOVA GLUCOSE POC Routine 06/24/2025 8:40 PM EDT XR CHEST PA AND LATERAL STAT 06/24/2025 2:15 PM EDT US THORACENTESIS LT Routine 06/24/2025 2 :09 PM EDT [facility] DIFFERENTIAL, BODY FLUID Routine 06/24/2025 2:06 PM EDT Mass of lung Pleural effusion on right CYTOLOGY ([facility]) AP Routine 06/24/2025 2:06 PM EDT Mass of lung Pleural effusion on right BODY FLUID/CSF- PATH REVIEW LAB ONLY Routine 06/24/2025 2:06 PM EDT Mass of lung Pleural effusion on right FUNGUS CULTURE W/TERRI OR JOCELIN INK Routine 06/24/2025 2:06 PM EDT Mass of lung Pleural effusion on right GLUCOSE, BODY FLUID Routine 06/24/2025 2 :06 PM EDT Mass of lung Pleural effusion on right BODY FLUID CULTURE + GRAM STAIN Routine 06/24/2025 2:06 PM EDT Mass of lung Pleural effusion on right BODY FLUID CELL COUNT WITH DIFFERENTIAL Routine 06/24/2025 2:06 PM EDT Mass of lung Pleural effusion on right PROTEIN, BODY FLUID Routine 06/24/2025 2 :06 PM EDT Mass of lung Pleural effusion on right LACTATE DEHYDROGENASE (LDH), BODY FLUID Routine 06/24/2025 2:06 PM EDT Mass of lung Pleural effusion on right PTT HEPARIN PROTOCOL Routine 06/24/2025 12:42 PM EDT NOVA GLUCOSE POC Routine 06/24/2025 12:1 3 PM EDT ECHO COMPLETE (DOPPLER / COLOR) W CONTRAST Routine 06/24/2025 8:00 AM EDT PROBNP Routine 06/24/2025 6:33 AM EDT HEPATITIS PANEL, ACUTE Add-On 06/24/2025 6:33 AM EDT COMPREHENSIVE METABOLIC PANEL Routine 06/24/2025 6:33 AM EDT [facility] CBC SCAN Routine 06/24/2025 6:32 AM EDT CBC W/ AUTO DIFF Routine 06/24/2025 6:32 AM EDT PTT HEPARIN PROTOCOL Routine 06/24/2025 6:32 AM EDT HIGH SENSITIVITY TROPONIN I Routine 06/24/2025 6:32 AM EDT NOVA GLUCOSE POC Routine 06/24/2025 4:57 AM EDT PTT HEPARIN PROTOCOL Routine 06/23/2025 11:27 PM EDT PROTHROMBIN TIME/INR Routine 06/23/2025 11:27 PM EDT XR CHEST AP PORTABLE STAT 06/23/2025 10:57 PM EDT FS_MODEL_IP_ECG 12-LEAD STAT 06/23/2025 10:44 PM EDT [facility] CBC SCAN Routine 06/23/2025 8:26 PM EDT CBC W/ AUTO DIFF STAT 06/23/2025 8:26 PM EDT HIGH SENSITIVITY TROPONIN I STAT 06/23/2025 8:26 PM EDT COMPREHENSIVE METABOLIC PANEL STAT 06/23/2025 8:26 PM EDT EKG-SCANNED 06/23/2025 documented in this encounter Results * (ABNORMAL) CBC with Automated Diff (06/29/2025 10:30 AM EDT) WBC 5.2 4.0 - 10.0 K/ L 06/29/2025 10:47 AM EDT [facility] RBC 3.10(L) 3.93 - 5.22 M/ L 06/29/2025 10:47 AM EDT [facility] Hemoglobin 8.8(L) 11.2 - 15.7 GM/DL 06/29/2025 10:47 AM EDT [facility] Hematocrit 29.2(L) 34.1 - 44.9 % 06/29/2025 10:47 AM EDT [facility] MCV 94 79 - 95 fL 06/29/2025 10:47 AM EDT [facility] MCH 28.4 25.6 - 32.2 pg 06/29/2025 10:47 AM EDT [facility] MCHC 30.1(L) 32.2 - 35.5 GM/DL 06/29/2025 10:47 AM EDT [facility] RDW 18.5(H) 11.7 - 14.4 % 06/29/2025 10:47 AM EDT [facility] Platelets 51(L) 140 - 375 K/CU MM 06/29/2025 10:47 AM EDT [facility] MPV 11.1 9.4 - 12.3 fL 06/29/2025 10:47 AM EDT [facility] % Neutros 72(H) 34 - 71 % 06/29/2025 10:47 AM EDT [facility] % Lymphs 16(L) 19 - 52 % 06/29/2025 10:47 AM EDT [facility] % Monos 7 5 - 13 % 06/29/2025 10:47 AM EDT [facility] % Eos 4 1 - 6 % 06/29/2025 10:47 AM EDT [facility] % Baso 1 0 - 1 % 06/29/2025 10:47 AM EDT [facility] NRBC Absolute <0.01 0 - 0.012 K/ul 06/29/2025 10:47 AM EDT [facility] # Neutros 3.78 1.56 - 6.13 K/ L 06/29/2025 10:47 AM EDT [facility] # Lymphs 0.81(L) 1.18 - 3.74 K/ L 06/29/2025 10:47 AM EDT [facility] # Monos 0.37 0.24 - 0.86 K/ L 06/29/2025 10:47 AM EDT [facility] # Eos 0.22 0.04 - 0.36 K/ L 06/29/2025 10:47 AM EDT [facility] # Baso 0.04 0.01 - 0.08 K/ L 06/29/2025 10:47 AM EDT [facility] % Imm Grans 0.40 0.01 - 0.43 % 06/29/2025 10:47 AM EDT [facility] # IG <0.03 0.00 - 0.03 K/uL 06/29/2025 10:47 AM EDT [facility] Blood Venipuncture / Unknown 06/29/2025 10:30 AM EDT 06/29/2025 10:35 AM EDT [facility] - 06/29/2025 10:47 AM EDT When CBC w/ Auto Diff is ordered the lab will add a Manual Differential as a quality check at no additional charge if: Lymphocytes greater than seventy five percent with normal or increased WBC Monocytes greater than Fifteen percent Basophil greater than four percent Bands >10% or several immature myeloids are seen on scan Blast? Flag noted Atypical Lymph flag noted us Mundo Díaz MD LAB BLOOD ORDERABLES Final Resul t [facility] [address] [phone] * (ABNORMAL) Glucose, Nova Meter (06/29/2025 6:06 AM EDT) POC-GLUCOSE 181(H) 70 - 110 mg/dL 06/29/2025 6:07 AM EDT [facility] Comment: In the event of poor peripheral blood flow, venous or arterial blood should be used due to the potential of erroneous results. Notified Nurse RBV Bellows Tester [id number] 06/29/2025 6:07 AM EDT [facility] Blood WHOLE BLOOD / Unknown 06/29/2025 6:06 AM EDT 06/29/2025 6:07 AM EDT [facility] - 06/29/2025 6:07 AM EDT Bellows Tester ID is - [id number] us Mundo Díaz MD POINT OF CARE TEST ORDERABLES Fi nal Result Performing Organization Address [facility] Co de Phone Number [facility] [address] [place] [address], [facility] [phone] * Glucose, Nova Meter (06/28/2025 7:58 PM EDT) POC-GLUCOSE 107 70 - 110 mg/dL 06/28/2025 7:59 PM EDT [facility] Comment: In the event of poor peripheral blood flow, venous or arterial blood should be used due to the potential of erroneous results. Protocols Followed Bellows Tester [id number] 06/28/2025 7:59 PM EDT [facility] Blood WHOLE BLOOD / Unknown 06/28/2025 7:58 PM EDT 06/28/2025 7:59 PM EDT [facility] - 06/28/2025 7:59 PM EDT Bellows Tester ID is - [id number] us Mundo Díaz MD POINT OF CARE TEST ORDERABLES Fi nal Result Performing Organization Address [facility] Co de Phone Number [facility] [address] [place] [address], [facility] [phone] * Glucose, Nova Meter (06/28/2025 6:50 PM EDT) POC-GLUCOSE 83 70 - 110 mg/dL 06/28/2025 7:05 PM EDT [facility] Comment: In the event of poor peripheral blood flow, venous or arterial blood should be used due to the potential of erroneous results. Notified Nurse RBV Protocols Followed Bellows Tester [id number] 06/28/2025 7:05 PM EDT [facility] Blood WHOLE BLOOD / Unknown 06/28/2025 6:50 PM EDT 06/28/2025 7:05 PM EDT [facility] - 06/28/2025 7:05 PM EDT Bellows Tester ID is - [id number] us Mundo Díaz MD POINT OF CARE TEST ORDERABLES Fi nal Result [facility] [address] [phone] * (ABNORMAL) Glucose, Nova Meter (06/28/2025 11:20 AM EDT) POC-GLUCOSE 116(H) 70 - 110 mg/dL 06/28/2025 11:21 AM EDT [facility] Comment: In the event of poor peripheral blood flow, venous or arterial blood should be used due to the potential of erroneous results. Notified Nurse RBV Bellows Tester [id number] 06/28/2025 11:21 AM EDT [facility] Blood WHOLE BLOOD / Unknown 06/28/2025 11:20 AM EDT 06/28/2025 11:21 AM EDT [facility] - 06/28/2025 11:21 AM EDT Bellows Tester ID is - [id number] Mundo Díaz MD POINT OF CARE TEST ORDERABLES Fi nal Result [facility] [address] [phone] * (ABNORMAL) Glucose, Nova Meter (06/28/2025 5:34 AM EDT) POC-GLUCOSE 111(H) 70 - 110 mg/dL 06/28/2025 5:35 AM EDT [facility] Comment: In the event of poor peripheral blood flow, venous or arterial blood should be used due to the potential of erroneous results. Notified Nurse RBV Bellows Tester [id number] 06/28/2025 5:35 AM EDT [facility] Blood WHOLE BLOOD / Unknown 06/28/2025 5:34 AM EDT 06/28/2025 5:35 AM EDT Narrative [facility] - 06/28/2025 5:35 AM EDT Bellows Tester ID is - [id number] us Mundo Díaz MD POINT OF CARE TEST ORDERABLES Fi nal Result [facility] [address] [phone] * Magnesium (06/28/2025 2:34 AM EDT) Magnesium 1.7 1.6 - 2.6 mg/dL 06/28/2025 3:14 AM EDT [facility] Blood Venipuncture / Unknown 06/28/2025 2:34 AM EDT 06/28/2025 2:50 AM EDT us Mundo Díaz MD LAB BLOOD ORDERABLES Final Resul t Performing Organization Address [facility]/ZIP Co de Phone Number [facility] [address] [phone] * (ABNORMAL) Comprehensive metabolic panel (06/28/2025 2:34 AM EDT) Sodium 140 136 - 145 meq/L 06/28/2025 3:14 AM EDT [facility] Potassium 4.5 3.4 - 5.1 meq/L 06/28/2025 3:14 AM EDT [facility] Chloride 101 98 - 112 meq/L 06/28/2025 3:14 AM EDT [facility] CO2 25 22 - 29 meq/L 06/28/2025 3:14 AM EDT [facility] Calcium 7.9(L) 8.4 - 10.2 mg/dL 06/28/2025 3:14 AM EDT [facility] Glucose 130(H) 74 - 100 mg/dL 06/28/2025 3:14 AM EDT [facility] BUN 41.0(H) 9.8 - 20.1 mg/dL 06/28/2025 3:14 AM EDT [facility] Creatinine 2.43(H) 0.57 - 1.11 mg/dL 06/28/2025 3:14 AM EDT [facility] BUN/Creatinine 17 8 - 20 06/28/2025 3:14 AM [facility] eGFR (mL/min/1.73m2) 23(L) >=60 mL/min/1. 73m2 06/28/2025 3:14 AM [facility] Comment:ESTIMATED GFR IS NOT ACCURATE CREATININE CLEARANCE IN PREDICTING GLOMERULAR FILTRATION RATE. ESTIMATED GFR IS NOT APPLICABLE FOR DIALYSIS PATIENTS. Albumin 2.3(L) 3.5 - 5.0 g/dL 06/28/2025 3:14 AM [facility] Alkaline Phosphatase 182(H) 40 - 150 U/L 06/28/2025 3:14 AM [facility] ALT 7 <=34 U/L 06/28/2025 3:14 AM [facility] Comment: ALT2 reagent used for testing does not contain P5P supplementation and therefore may miss ALT elevations in patients with B6 deficiency. This population may be as high as 10% in the [place], with risk factors including malabsorption, drug interactions, and alcoholic hepatitis. AST 15 11 - 34 U/L 06/28/2025 3:14 AM [facility] Comment: AST2 reagent used for testing does not contain P5P supplementation and therefore may miss AST elevations in patients with B6 deficiency. This population may be as high as 10% in the [place], with risk factors including malabsorption, drug interactions, and alcoholic hepatitis. Total Bilirubin 0.7 0.2 - 1.2 mg/dL 06/28/2025 3:14 AM [facility] Protein, Total 5.9(L) 6.4 - 8.3 g/dL 06/28/2025 3:14 AM [facility] Globulin 3.6 2.5 - 4.1 g/dL 06/28/2025 3:14 AM [facility] Anion Gap 19(H) 4 - 12 06/28/2025 3:14 AM [facility] A/G Ratio 0.6(L) 0.7 - 1.9 06/28/2025 3:14 AM [facility] Osmolality Calc 291.3 mOsm/kg 3:14 AM [facility] Blood Venipuncture / Unknown 06/28/2025 2:34 AM EDT 06/28/2025 2:50 AM EDT us Mundo Díaz MD LAB BLOOD ORDERABLES Final Resul t [facility] [address] [place] [id number] [phone] * (ABNORMAL) CBC with automated diff (06/28/2025 2:34 AM EDT) WBC 4.9 4.0 - 10.0 K/ L 06/28/2025 2:56 AM EDT [facility] RBC 3.07(L) 3.93 - 5.22 M/ L 06/28/2025 2:56 AM EDT [facility] Hemoglobin 8.7(L) 11.2 - 15.7 GM/DL 06/28/2025 2:56 AM EDT [facility] Hematocrit 29.3(L) 34.1 - 44.9 % 06/28/2025 2:56 AM EDT [facility] MCV 95 79 - 95 fL 06/28/2025 2:56 AM EDT [facility] MCH 28.3 25.6 - 32.2 pg 06/28/2025 2:56 AM EDT [facility] MCHC 29.7(L) 32.2 - 35.5 GM/DL 06/28/2025 2:56 AM EDT [facility] RDW 18.7(H) 11.7 - 14.4 % 06/28/2025 2:56 AM EDT [facility] Platelets 51(L) 140 - 375 K/CU MM 06/28/2025 2:56 AM EDT [facility] MPV 12.6(H) 9.4 - 12.3 fL 06/28/2025 2:56 AM EDT [facility] % Neutros 66 34 - 71 % 06/28/2025 2:56 AM EDT [facility] % Lymphs 21 19 - 52 % 06/28/2025 2:56 AM EDT [facility] % Monos 8 5 - 13 % 06/28/2025 2:56 AM EDT [facility] % Eos 5 1 - 6 % 06/28/2025 2:56 AM EDT [facility] % Baso 1 0 - 1 % 06/28/2025 2:56 AM EDT [facility] NRBC Absolute <0.01 0 - 0.012 K/ul 06/28/2025 2:56 AM EDT [facility] # Neutros 3.20 1.56 - 6.13 K/ L 06/28/2025 2:56 AM EDT [facility] # Lymphs 1.00(L) 1.18 - 3.74 K/ L 06/28/2025 2:56 AM EDT [facility] # Monos 0.37 0.24 - 0.86 K/ L 06/28/2025 2:56 AM EDT [facility] # Eos 0.22 0.04 - 0.36 K/ L 06/28/2025 2:56 AM EDT [facility] # Baso 0.04 0.01 - 0.08 K/ L 06/28/2025 2:56 AM EDT [facility] % Imm Grans 0.80(H) 0.01 - 0.43 % 06/28/2025 2:56 AM EDT [facility] # IG 0.04(H) 0.00 - 0.03 K/uL 06/28/2025 2:56 AM EDT [facility] Blood Venipuncture / Unknown 06/28/2025 2:34 AM EDT 06/28/2025 2:49 AM EDT Narrative [facility] - 06/28/2025 2:56 AM EDT When CBC w/ Auto Diff is ordered the lab will add a Manual Differential as a quality check at no additional charge if: Lymphocytes greater than seventy five percent with normal or increased WBC Monocytes greater than Fifteen percent Basophil greater than four percent Bands >10% or several immature myeloids are seen on scan Blast? Flag noted Atypical Lymph flag noted us Mundo Díaz MD LAB BLOOD ORDERABLES Final Resul t [facility] [address] [phone] * Glucose, Nova Meter (06/27/2025 7:59 PM EDT) [facility] POC-GLUCOSE 105 70 - 110 mg/dL 06/27/2025 8:07 PM EDT [facility] Comment: In the event of poor peripheral blood flow, venous or arterial blood should be used due to the potential of erroneous results. Notified Nurse RBV Bellows Tester [phone] 06/27/2025 8:07 PM EDT [facility] Blood WHOLE BLOOD / Unknown 06/27/2025 7:59 PM EDT 06/27/2025 8:07 PM EDT Narrative [facility] - 06/27/2025 8:07 PM EDT Bellows Tester ID is - [id number] us Mundo Díaz MD POINT OF CARE TEST ORDERABLES Fi nal Result Performing Organization Address City/[facility]/ZIP Co de Phone Number [facility] [address] [phone] * (ABNORMAL) Hemoglobin and hematocrit (06/27/2025 7:53 PM EDT) [facility] Hemoglobin 8.7(L) 11.2 - 15.7 GM/DL 06/27/2025 8:14 PM EDT [facility] Hematocrit 28.7(L) 34.1 - 44.9 % 06/27/2025 8:14 PM EDT [facility] Blood Venipuncture / Unknown 06/27/2025 7:53 PM EDT 06/27/2025 8:08 PM EDT us Mundo Díaz MD LAB BLOOD ORDERABLES Final Resul t Performing Organization Address City/[facility]/ZIP Co de Phone Number [facility] [address] [phone] * (ABNORMAL) Glucose, Nova Meter (06/27/2025 3:52 PM EDT) [facility] POC-GLUCOSE 156(H) 70 - 110 mg/dL 06/27/2025 3:54 PM EDT [facility] Comment: In the event of poor peripheral blood flow, venous or arterial blood should be used due to the potential of erroneous results. Protocols Followed Notified Nurse RBV [employer] Tester [id number] 06/27/2025 3:54 PM EDT [facility] Blood WHOLE BLOOD / Unknown 06/27/2025 3:52 PM EDT 06/27/2025 3:54 PM EDT [facility] - 06/27/2025 3:54 PM EDT Bellows Tester ID is - [id number] us Mundo Díaz MD POINT OF CARE TEST ORDERABLES Fi nal Result [facility] [address] [phone] * Transfuse RBC (06/27/2025 2:38 PM EDT) us Mundo Díaz MD FS_[email or web address]_BLOOD TRANSFUSION OR DERABLES Final Result * Transfuse RBC: 1 Units (06/27/2025 2:38 PM EDT) us Mundo Díaz MD FS_MODEL_IP_BLOOD TRANSFUSION OR DERABLES Final Result * (ABNORMAL) Glucose, Nova Meter (06/27/2025 11:32 AM EDT) POC-GLUCOSE 156(H) 70 - 110 mg/dL 06/27/2025 11:33 AM EDT [facility] Comment: In the event of poor peripheral blood flow, venous or arterial blood should be used due to the potential of erroneous results. Notified Nurse RBV Protocols Followed [employer] Tester [id number] 06/27/2025 11:33 AM EDT [facility] Blood WHOLE BLOOD / Unknown 06/27/2025 11:32 AM EDT 06/27/2025 11:33 AM EDT [facility] - 06/27/2025 11:33 AM EDT B[employer] Tester ID is - [id number] us Mundo Díaz MD POINT OF CARE TEST ORDERABLES Fi nal Result Performing Organization Address City/[facility]/ZIP Co de Phone Number [address] [phone] * (ABNORMAL) PTT Heparin Protocol (06/27/2025 10:07 AM EDT) PTT Heparin 29.7(L) 45 - 65 seconds 06/27/2025 11:08 AM EDT [facility] Blood Venipuncture / Unknown 06/27/2025 10:07 AM EDT 06/27/2025 10:43 AM EDT Mundo Díaz MD LAB BLOOD ORDERABLES Final Resul t Performing Organization Address [facility] Co de Phone Number [address] [phone] * Prepare RBC: 1 Units (06/27/2025 9:47 AM EDT) [facility] Issue Date/Time [id number] [facility] [place] Product Identification Red Blood Cells [facility] [place]) Product Code [id number] [facility] [place]) Status Information TRANSFUSED [facility] [place] Unit Number [id number] [facility] [place]) Blood Type 9500 [facility] [place] Cross Match Results Compatible [facility] [place] Mundo Díaz MD [id number]_BLOOD BANK PRODUCT O RDERABLES Final Result Performing Organization Address [facility] Co de Phone Number [facility] ([place]) [address] [place] [address] * (ABNORMAL) Glucose, Nova Meter (06/27/2025 5:14 AM EDT) Pathologist [facility] POC-GLUCOSE 193(H) 70 - 110 mg/dL 06/27/2025 5:15 AM EDT [facility] Comment: In the event of poor peripheral blood flow, venous or arterial blood should be used due to the potential of erroneous results. Notified Nurse RBV Bellows Tester [phone] 06/27/2025 5:15 AM EDT [facility] Blood WHOLE BLOOD / Unknown 06/27/2025 5:14 AM EDT 06/27/2025 5:15 AM EDT Narrative [facility] - 06/27/2025 5:15 AM EDT Bellows Tester ID is - [id number] Mundo Díaz MD POINT OF CARE TEST ORDERABLES Fi nal Result Performing Organization Address [facility]/ZIP Co de Phone Number [facility] [address] [phone] * (ABNORMAL) CBC Scan (06/27/2025 3:06 AM EDT) Platelet Estimate Decreased (A) Adequate 06/27/2025 4:48 AM EDT [facility] RBC Morphology abnormal( A) Normal 06/27/2025 4:48 AM EDT [facility] Anisocytosis 2+ 06/27/2025 4:48 AM EDT [facility] Hypochromia 1+ 06/27/2025 4:48 AM EDT [facility] Polychromasia 1+ 06/27/2025 4:48 AM EDT [facility] Macrocytes 1+ 06/27/2025 4:48 AM EDT [facility] Ovalocytes 1+ 06/27/2025 4:48 AM EDT [facility] Elliptocytes 1+ 06/27/2025 4:48 AM EDT [facility] Blood Venipuncture / Unknown 06/27/2025 3:06 AM EDT 06/27/2025 3:43 AM EDT Mundo Díaz MD LAB BLOOD ORDERABLES Final Resul t Performing Organization Address City/[facility]/ZIP Co de Phone Number [facility] [address] [place] [address], [facility] [phone] * Magnesium (06/27/2025 3:06 AM EDT) Magnesium 1.6 1.6 - 2.6 mg/dL 06/27/2025 4:24 AM EDT [facility] Blood Venipuncture / Unknown 06/27/2025 3:06 AM EDT 06/27/2025 3:43 AM EDT Mundo Díaz MD LAB BLOOD ORDERABLES Final Resul t [facility] [address] [phone] * (ABNORMAL) Comprehensive metabolic panel (06/27/2025 3:06 AM EDT) Sodium 137 136 - 145 meq/L 06/27/2025 4:25 AM EDT [facility] Potassium 3.8 3.4 - 5.1 meq/L 06/27/2025 4:25 AM EDT [facility] Chloride 101 98 - 112 meq/L 06/27/2025 4:25 AM EDT [facility] CO2 25 22 - 29 meq/L 06/27/2025 4:25 AM EDT [facility] Calcium 7.8(L) 8.4 - 10.2 mg/dL 06/27/2025 4:25 AM EDT [facility] Glucose 198(H) 74 - 100 mg/dL 06/27/2025 4:25 AM EDT [facility] BUN 27.3(H) 9.8 - 20.1 mg/dL 06/27/2025 4:25 AM EDT [facility] Creatinine 1.85(H) 0.57 - 1.11 mg/dL 06/27/2025 4:25 AM EDT [facility] BUN/Creatinine 15 8 - 20 06/27/2025 4:25 AM EDT [facility] eGFR (mL/min/1.73m2) 32(L) >=60 mL/min/1. 73m2 06/27/2025 4:25 AM [facility] Comment:ESTIMATED GFR IS NOT ACCURATE CREATININE CLEARANCE IN PREDICTING GLOMERULAR FILTRATION RATE. ESTIMATED GFR IS NOT APPLICABLE FOR DIALYSIS PATIENTS. Albumin 2.4(L) 3.5 - 5.0 g/dL 06/27/2025 4:25 AM [facility] Alkaline Phosphatase 194(H) 40 - 150 U/L 06/27/2025 4:25 AM [facility] ALT <7 <=34 U/L 06/27/2025 4:25 AM [facility] Comment: ALT2 reagent used for testing does not contain P5P supplementation and therefore may miss ALT elevations in patients with B6 deficiency. This population may be as high as 10% in the [place], with risk factors including malabsorption, drug interactions, and alcoholic hepatitis. AST 20 11 - 34 U/L 06/27/2025 4:25 AM [facility] Comment: AST2 reagent used for testing does not contain P5P supplementation and therefore may miss AST elevations in patients with B6 deficiency. This population may be as high as 10% in the [place], with risk factors including malabsorption, drug interactions, and alcoholic hepatitis. Total Bilirubin 0.6 0.2 - 1.2 mg/dL 06/27/2025 4:25 AM [facility] Protein, Total 5.9(L) 6.4 - 8.3 g/dL 06/27/2025 4:25 AM [facility] Globulin 3.5 2.5 - 4.1 g/dL 06/27/2025 4:25 AM [facility] Anion Gap 15(H) 4 - 12 06/27/2025 4:25 AM [facility] A/G Ratio 0.7 0.7 - 1.9 06/27/2025 4:25 AM [facility] Osmolality Calc 284.6 mOsm/kg 4:25 AM [facility] Blood Venipuncture / Unknown 06/27/2025 3:06 AM EDT 06/27/2025 3:43 AM EDT us Mundo Díaz MD LAB BLOOD ORDERABLES Final Resul t [facility] [address] [phone] * (ABNORMAL) CBC with automated diff (06/27/2025 3:06 AM EDT) WBC 3.8(L) 4.0 - 10.0 K/ L 06/27/2025 3:50 AM EDT [facility] RBC 2.51(L) 3.93 - 5.22 M/ L 06/27/2025 3:50 AM EDT [facility] Hemoglobin 6.8(L) 11.2 - 15.7 GM/DL 06/27/2025 3:50 AM EDT [facility] Hematocrit 24.1(L) 34.1 - 44.9 % 06/27/2025 3:50 AM EDT [facility] MCV 96(H) 79 - 95 fL 06/27/2025 3:50 AM EDT [facility] MCH 27.1 25.6 - 32.2 pg 06/27/2025 3:50 AM EDT [facility] MCHC 28.2(L) 32.2 - 35.5 GM/DL 06/27/2025 3:50 AM EDT [facility] RDW 19.5(H) 11.7 - 14.4 % 06/27/2025 3:50 AM EDT [facility] Platelets 50(L) 140 - 375 K/CU MM 06/27/2025 3:50 AM EDT [facility] MPV 11.8 9.4 - 12.3 fL 06/27/2025 3:50 AM EDT [facility] Nucleated Red Blood Cell 0.0 0 - 0.2 % 06/27/2025 3:50 AM EDT [facility] % Neutros 59 34 - 71 % 06/27/2025 3:50 AM EDT [facility] % Lymphs 26 19 - 52 % 06/27/2025 3:50 AM EDT [facility] % Monos 9 5 - 13 % 06/27/2025 3:50 AM EDT [facility] % Eos 4 1 - 6 % 06/27/2025 3:50 AM EDT [facility] % Baso 1 0 - 1 % 06/27/2025 3:50 AM EDT [facility] NRBC Absolute <0.01 0 - 0.012 K/ul 06/27/2025 3:50 AM EDT [facility] # Neutros 2.24 1.56 - 6.13 K/ L 06/27/2025 3:50 AM EDT [facility] # Lymphs 0.99(L) 1.18 - 3.74 K/ L 06/27/2025 3:50 AM EDT [facility] # Monos 0.35 0.24 - 0.86 K/ L 06/27/2025 3:50 AM EDT [facility] # Eos 0.14 0.04 - 0.36 K/ L 06/27/2025 3:50 AM EDT [facility] # Baso 0.05 0.01 - 0.08 K/ L 06/27/2025 3:50 AM EDT [facility] % Imm Grans 0.50(H) 0.01 - 0.43 % 06/27/2025 3:50 AM EDT [facility] # IG <0.03 0.00 - 0.03 K/uL 06/27/2025 3:50 AM EDT [facility] Blood Venipuncture / Unknown 06/27/2025 3:06 AM EDT 06/27/2025 3:43 AM EDT Narrative [facility] - 06/27/2025 3:50 AM EDT When CBC w/ Auto Diff is ordered the lab will add a Manual Differential as a quality check at no additional charge if: Lymphocytes greater than seventy five percent with normal or increased WBC Monocytes greater than Fifteen percent Basophil greater than four percent Bands >10% or several immature myeloids are seen on scan Blast? Flag noted Atypical Lymph flag noted us Mundo Díaz MD LAB BLOOD ORDERABLES Final Resul t [facility] [address] [phone] * (ABNORMAL) PTT Heparin Protocol (06/26/2025 11:57 PM EDT) PTT Heparin 30.2(L) 45 - 65 seconds 06/27/2025 12:20 AM EDT [facility] Blood Venipuncture / Unknown 06/26/2025 11:57 PM EDT 06/27/2025 12:01 AM EDT Mundo Díaz MD LAB BLOOD ORDERABLES Final Resul t [facility] [address] [phone] * (ABNORMAL) Glucose, Nova Meter (06/26/2025 8:12 PM EDT) POC-GLUCOSE 117(H) 70 - 110 mg/dL 06/26/2025 9:19 PM EDT [facility] Comment: In the event of poor peripheral blood flow, venous or arterial blood should be used due to the potential of erroneous results. Notified Nurse RBV Bellows Tester [phone] 06/26/2025 9:19 PM EDT [facility] Blood WHOLE BLOOD / Unknown 06/26/2025 8:12 PM EDT 06/26/2025 9:19 PM EDT Narrative [facility] - 06/26/2025 9:19 PM EDT Bellows Tester ID is - [id number] Mundo Díaz MD POINT OF CARE TEST ORDERABLES Fi nal Result [facility] [address] [phone] * (ABNORMAL) PTT Heparin Protocol (06/26/2025 6:24 PM EDT) PTT Heparin 29.3(L) 45 - 65 seconds 06/26/2025 6:55 PM EDT [facility] Blood Venipuncture / Unknown 06/26/2025 6:24 PM EDT 06/26/2025 6:40 PM EDT Mundo Díaz MD LAB BLOOD ORDERABLES Final Resul t Performing Organization Address [facility] Co de Phone Number [facility] [address] [phone] * (ABNORMAL) Glucose, Nova Meter (06/26/2025 10:56 AM EDT) [facility] POC-GLUCOSE 143(H) 70 - 110 mg/dL 06/26/2025 10:58 AM EDT [facility] Comment: In the event of poor peripheral blood flow, venous or arterial blood should be used due to the potential of erroneous results. Notified Nurse RBV Bellows Tester [phone] 06/26/2025 10:58 AM EDT [facility] Blood WHOLE BLOOD / Unknown 06/26/2025 10:56 AM EDT 06/26/2025 10:58 AM EDT Narrative [facility] - 06/26/2025 10:58 AM EDT Bellows Tester ID is - [id number] Mundo Díaz MD POINT OF CARE TEST ORDERABLES Fi nal Result Performing Organization Address [facility] Co de Phone Number [facility] [address] [phone] * (ABNORMAL) CBC Scan (06/26/2025 8:11 AM EDT) [facility] Platelet Estimate Decreased (A) Adequate 06/26/2025 9:51 AM EDT [facility] RBC Morphology abnormal( A) Normal 06/26/2025 9:51 AM EDT [facility] Anisocytosis 1+ 06/26/2025 9:51 AM EDT [facility] Hypochromia 2+ 06/26/2025 9:51 AM EDT [facility] Polychromasia 1+ 06/26/2025 9:51 AM EDT [facility] Ovalocytes 1+ 06/26/2025 9:51 AM EDT [facility] Tear Drop Cells 9:51 AM EDT [facility] Comment:rare Elliptocytes 1+ 06/26/2025 9:51 AM EDT [facility] Poikilocytes 1+ 06/26/2025 9:51 AM EDT [facility] Blood Venipuncture / Unknown 06/26/2025 8:11 AM EDT 06/26/2025 8:24 AM EDT us Mundo Díaz MD LAB BLOOD ORDERABLES Final Resul t [facility] [address] [phone] * (ABNORMAL) CBC with automated diff (06/26/2025 8:11 AM EDT) WBC 4.6 4.0 - 10.0 K/ L 06/26/2025 8:30 AM EDT [facility] RBC 2.63(L) 3.93 - 5.22 M/ L 06/26/2025 8:30 AM EDT [facility] Hemoglobin 7.2(L) 11.2 - 15.7 GM/DL 06/26/2025 8:30 AM EDT [facility] Hematocrit 25.1(L) 34.1 - 44.9 % 06/26/2025 8:30 AM EDT [facility] MCV 95 79 - 95 fL 06/26/2025 8:30 AM EDT [facility] MCH 27.4 25.6 - 32.2 pg 06/26/2025 8:30 AM EDT [facility] MCHC 28.7(L) 32.2 - 35.5 GM/DL 06/26/2025 8:30 AM EDT [facility] RDW 19.7(H) 11.7 - 14.4 % 06/26/2025 8:30 AM EDT [facility] Platelets 59(L) 140 - 375 K/CU MM 06/26/2025 8:30 AM EDT [facility] MPV 12.5(H) 9.4 - 12.3 fL 06/26/2025 8:30 AM EDT [facility] % Neutros 66 34 - 71 % 06/26/2025 8:30 AM EDT [facility] % Lymphs 21 19 - 52 % 06/26/2025 8:30 AM EDT [facility] % Monos 9 5 - 13 % 06/26/2025 8:30 AM EDT [facility] % Eos 4 1 - 6 % 06/26/2025 8:30 AM EDT [facility] % Baso 1 0 - 1 % 06/26/2025 8:30 AM EDT [facility] NRBC Absolute <0.01 0 - 0.012 K/ul 06/26/2025 8:30 AM EDT [facility] # Neutros 3.02 1.56 - 6.13 K/ L 06/26/2025 8:30 AM EDT [facility] # Lymphs 0.98(L) 1.18 - 3.74 K/ L 06/26/2025 8:30 AM EDT [facility] # Monos 0.39 0.24 - 0.86 K/ L 06/26/2025 8:30 AM EDT [facility] # Eos 0.16 0.04 - 0.36 K/ L 06/26/2025 8:30 AM EDT [facility] # Baso 0.03 0.01 - 0.08 K/ L 06/26/2025 8:30 AM EDT [facility] % Imm Grans 0.40 0.01 - 0.43 % 06/26/2025 8:30 AM EDT [facility] # IG <0.03 0.00 - 0.03 K/uL 06/26/2025 8:30 AM EDT [facility] Blood Venipuncture / Unknown 06/26/2025 8:11 AM EDT 06/26/2025 8:24 AM EDT Narrative [facility] - 06/26/2025 8:30 AM EDT When CBC w/ Auto Diff is ordered the lab will add a Manual Differential as a quality check at no additional charge if: Lymphocytes greater than seventy five percent with normal or increased WBC Monocytes greater than Fifteen percent Basophil greater than four percent Bands >10% or several immature myeloids are seen on scan Blast? Flag noted Atypical Lymph flag noted us Mundo Díaz MD LAB BLOOD ORDERABLES Final Resul t Performing Organization Address [facility] Co de Phone Number [facility] [address] [phone] * (ABNORMAL) PTT Heparin Protocol (06/26/2025 8:11 AM EDT) [facility] PTT Heparin 30.5(L) 45 - 65 seconds 06/26/2025 8:42 AM EDT [facility] Blood ENTIRE RIGHT UPPER ARM / Unknown Venipuncture / Unknown 06/26/2025 8:11 AM EDT 06/26/2025 8:24 AM EDT Vlad Waters PA-C LAB BLOOD ORDERABLES Final Res ult Performing Organization Address [facility] Co de Phone Number [facility] [address] [phone] * (ABNORMAL) Glucose, Nova Meter (06/26/2025 5:09 AM EDT) [facility] POC-GLUCOSE 147(H) 70 - 110 mg/dL 06/26/2025 5:24 AM EDT [facility] Comment: In the event of poor peripheral blood flow, venous or arterial blood should be used due to the potential of erroneous results. Notified Nurse RBV Bellows Tester [phone] 06/26/2025 5:24 AM EDT [facility] Blood WHOLE BLOOD / Unknown 06/26/2025 5:09 AM EDT 06/26/2025 5:24 AM EDT Narrative [facility] - 06/26/2025 5:24 AM EDT Bellows Tester ID is - [id number] us Mundo Díaz MD POINT OF CARE TEST ORDERABLES Fi nal Result Performing Organization Address [facility] Co de Phone Number [facility] [address] [phone] * (ABNORMAL) CBC Scan (06/26/2025 1:18 AM EDT) Platelet Estimate Decreased (A) Adequate 06/26/2025 1:58 AM EDT [facility] RBC Morphology abnormal( A) Normal 06/26/2025 1:58 AM EDT [facility] Anisocytosis 1+ 06/26/2025 1:58 AM EDT [facility] Hypochromia 2+ 06/26/2025 1:58 AM EDT [facility] Elliptocytes 1+ 06/26/2025 1:58 AM EDT [facility] Blood Venipuncture / Unknown 06/26/2025 1:18 AM EDT 06/26/2025 1:21 AM EDT Mundo Díaz MD LAB BLOOD ORDERABLES Final Resul t [facility] [address] [phone] * (ABNORMAL) Phosphorus (06/26/2025 1:18 AM EDT) Phosphorus 5.1(H) 2.5 - 4.5 mg/dL 06/26/2025 1:45 AM EDT [facility] Blood Venipuncture / Unknown 06/26/2025 1:18 AM EDT 06/26/2025 1:21 AM EDT us Mundo Díaz MD LAB BLOOD ORDERABLES Final Resul t [facility] [address] [phone] * Magnesium (06/26/2025 1:18 AM EDT) Magnesium 1.7 1.6 - 2.6 mg/dL 06/26/2025 1:45 AM EDT [facility] Blood Venipuncture / Unknown 06/26/2025 1:18 AM EDT 06/26/2025 1:21 AM EDT us Mundo Díaz MD LAB BLOOD ORDERABLES Final Resul t [facility] [address] [phone] * (ABNORMAL) Comprehensive metabolic panel (06/26/2025 1:18 AM EDT) Sodium 139 136 - 145 meq/L 06/26/2025 1:50 AM EDT [facility] Potassium 4.2 3.4 - 5.1 meq/L 06/26/2025 1:50 AM EDT [facility] Chloride 101 98 - 112 meq/L 06/26/2025 1:50 AM EDT [facility] CO2 24 22 - 29 meq/L 06/26/2025 1:50 AM EDT [facility] Calcium 7.8(L) 8.4 - 10.2 mg/dL 06/26/2025 1:50 AM EDT [facility] Glucose 166(H) 74 - 100 mg/dL 06/26/2025 1:50 AM EDT [facility] BUN 42.1(H) 9.8 - 20.1 mg/dL 06/26/2025 1:50 AM EDT [facility] Creatinine 2.76(H) 0.57 - 1.11 mg/dL 06/26/2025 1:50 AM EDT [facility] BUN/Creatinine 15 8 - 20 06/26/2025 1:50 AM EDT [facility] eGFR (mL/min/1.73m2) 20(L) >=60 mL/min/1. 73m2 06/26/2025 1:50 AM EDT [facility] Comment:ESTIMATED GFR IS NOT ACCURATE CREATININE CLEARANCE IN PREDICTING GLOMERULAR FILTRATION RATE. ESTIMATED GFR IS NOT APPLICABLE FOR DIALYSIS PATIENTS. Albumin 2.3(L) 3.5 - 5.0 g/dL 06/26/2025 1:50 AM EDT [facility] Alkaline Phosphatase 199(H) 40 - 150 U/L 06/26/2025 1:50 AM EDT [facility] ALT 7 <=34 U/L 06/26/2025 1:50 AM EDT [facility] Comment: ALT2 reagent used for testing does not contain P5P supplementation and therefore may miss ALT elevations in patients with B6 deficiency. This population may be as high as 10% in the [place], with risk factors including malabsorption, drug interactions, and alcoholic hepatitis. AST 28 11 - 34 U/L 06/26/2025 1:50 AM EDT [facility] Comment: AST2 reagent used for testing does not contain P5P supplementation and therefore may miss AST elevations in patients with B6 deficiency. This population may be as high as 10% in the [place], with risk factors including malabsorption, drug interactions, and alcoholic hepatitis. Total Bilirubin 0.6 0.2 - 1.2 mg/dL 06/26/2025 1:50 AM EDT [facility] Protein, Total 5.8(L) 6.4 - 8.3 g/dL 06/26/2025 1:50 AM EDT [facility] Globulin 3.5 2.5 - 4.1 g/dL 06/26/2025 1:50 AM EDT [facility] Anion Gap 18(H) 4 - 12 06/26/2025 1:50 AM EDT [facility] A/G Ratio 0.7 0.7 - 1.9 06/26/2025 1:50 AM EDT [facility] Osmolality Calc 291.8 mOsm/kg 1:50 AM EDT [facility] Blood Venipuncture / Unknown 06/26/2025 1:18 AM EDT 06/26/2025 1:21 AM EDT us Mundo Díaz MD LAB BLOOD ORDERABLES Final Resul t [facility] [address] [phone] * (ABNORMAL) CBC with automated diff (06/26/2025 1:18 AM EDT) WBC 4.0 4.0 - 10.0 K/ L 06/26/2025 1:27 AM EDT [facility] RBC 2.61(L) 3.93 - 5.22 M/ L 06/26/2025 1:27 AM EDT [facility] Hemoglobin 7.1(L) 11.2 - 15.7 GM/DL 06/26/2025 1:27 AM EDT [facility] Hematocrit 25.3(L) 34.1 - 44.9 % 06/26/2025 1:27 AM EDT [facility] MCV 97(H) 79 - 95 fL 06/26/2025 1:27 AM EDT [facility] MCH 27.2 25.6 - 32.2 pg 06/26/2025 1:27 AM EDT [facility] MCHC 28.1(L) 32.2 - 35.5 GM/DL 06/26/2025 1:27 AM EDT [facility] RDW 19.9(H) 11.7 - 14.4 % 06/26/2025 1:27 AM EDT [facility] Platelets 62(L) 140 - 375 K/CU MM 06/26/2025 1:27 AM EDT [facility] MPV 12.7(H) 9.4 - 12.3 fL 06/26/2025 1:27 AM EDT [facility] % Neutros 63 34 - 71 % 06/26/2025 1:27 AM EDT [facility] % Lymphs 25 19 - 52 % 06/26/2025 1:27 AM EDT [facility] % Monos 8 5 - 13 % 06/26/2025 1:27 AM EDT [facility] % Eos 3 1 - 6 % 06/26/2025 1:27 AM EDT [facility] % Baso 1 0 - 1 % 06/26/2025 1:27 AM EDT [facility] NRBC Absolute <0.01 0 - 0.012 K/ul 06/26/2025 1:27 AM EDT [facility] # Neutros 2.51 1.56 - 6.13 K/ L 06/26/2025 1:27 AM EDT [facility] # Lymphs 1.01(L) 1.18 - 3.74 K/ L 06/26/2025 1:27 AM EDT [facility] # Monos 0.31 0.24 - 0.86 K/ L 06/26/2025 1:27 AM EDT [facility] # Eos 0.12 0.04 - 0.36 K/ L 06/26/2025 1:27 AM EDT [facility] # Baso 0.04 0.01 - 0.08 K/ L 06/26/2025 1:27 AM EDT [facility] % Imm Grans 0.50(H) 0.01 - 0.43 % 06/26/2025 1:27 AM EDT [facility] # IG <0.03 0.00 - 0.03 K/uL 06/26/2025 1:27 AM EDT [facility] Blood Venipuncture / Unknown 06/26/2025 1:18 AM EDT 06/26/2025 1:21 AM EDT Narrative [facility] - 06/26/2025 1:27 AM EDT When CBC w/ Auto Diff is ordered the lab will add a Manual Differential as a quality check at no additional charge if: Lymphocytes greater than seventy five percent with normal or increased WBC Monocytes greater than Fifteen percent Basophil greater than four percent Bands >10% or several immature myeloids are seen on scan Blast? Flag noted Atypical Lymph flag noted us Mundo Díaz MD LAB BLOOD ORDERABLES Final Resul t [facility] [address] [phone] * (ABNORMAL) PTT Heparin Protocol (06/26/2025 1:17 AM EDT) PTT Heparin 29.9(L) 45 - 65 seconds 06/26/2025 1:43 AM EDT [facility] Blood ENTIRE RIGHT UPPER ARM / Unknown Venipuncture / Unknown 06/26/2025 1:17 AM EDT 06/26/2025 1:21 AM EDT Vlad Waters PA-C LAB BLOOD ORDERABLES Final Res ult Performing Organization Address [facility] Co de Phone Number [facility] [address] [place] [address], [facility] [phone] * (ABNORMAL) Hemoglobin and hematocrit (06/25/2025 8:21 PM EDT) Hemoglobin 7.5(L) 11.2 - 15.7 GM/DL 06/25/2025 8:33 PM EDT [facility] Hematocrit 26.3(L) 34.1 - 44.9 % 06/25/2025 8:33 PM EDT [facility] Blood Venipuncture / Unknown 06/25/2025 8:21 PM EDT 06/25/2025 8:27 PM EDT Vlad Waters PA-C LAB BLOOD ORDERABLES Final Res ult Performing Organization Address [facility] Phone Number [facility] [address] [place] [address], [facility] [phone] * (ABNORMAL) Glucose, Nova Meter (06/25/2025 7:08 PM EDT) Pathologist [facility] POC-GLUCOSE 143(H) 70 - 110 mg/dL 06/25/2025 7:22 PM EDT [facility] Comment: In the event of poor peripheral blood flow, venous or arterial blood should be used due to the potential of erroneous results. Notified Nurse RBV Bellows Tester [phone] 06/25/2025 7:22 PM EDT [facility] Blood WHOLE BLOOD / Unknown 06/25/2025 7:08 PM EDT 06/25/2025 7:21 PM EDT Narrative [facility] - 06/25/2025 7:22 PM EDT Bellows Tester ID is - [id number] Mundo Díaz MD POINT OF CARE TEST ORDERABLES Fi nal Result Performing Organization Address [facility] Co de Phone Number [facility] [address] [place] [address], [facility] [phone] * (ABNORMAL) PTT Heparin Protocol (06/25/2025 6:21 PM EDT) [facility] PTT Heparin 44.6(L) 45 - 65 seconds 06/25/2025 6:50 PM EDT [facility] Blood ENTIRE RIGHT UPPER ARM / Unknown Venipuncture / Unknown 06/25/2025 6:21 PM EDT 06/25/2025 6:28 PM EDT us Vlad Waters PA-C LAB BLOOD ORDERABLES Final Res ult Performing Organization Address City/[facility]/ZIP Co de Phone Number [facility] [address] [phone] * Transfuse RBC (06/25/2025 4:40 PM EDT) us Mundo Díaz MD FS_[email or web address]_BLOOD TRANSFUSION OR DERABLES Final Result * Transfuse RBC: 1 Units (06/25/2025 4:40 PM EDT) us Mundo Díaz MD [id number]_IP_BLOOD TRANSFUSION OR DERABLES Final Result * Glucose, Nova Meter (06/25/2025 4:03 PM EDT) [facility] POC-GLUCOSE 89 70 - 110 mg/dL 06/25/2025 4:06 PM EDT [facility] Comment: In the event of poor peripheral blood flow, venous or arterial blood should be used due to the potential of erroneous results. Notified Nurse RBV Bellows Tester [phone] 06/25/2025 4:06 PM EDT [facility] Blood WHOLE BLOOD / Unknown 06/25/2025 4:03 PM EDT 06/25/2025 4:06 PM EDT Narrative [facility] - 06/25/2025 4:06 PM EDT Bellows Tester ID is - [id number] us Mundo Díaz MD POINT OF CARE TEST ORDERABLES Fi nal Result [facility] [address] [phone] * Glucose, Nova Meter (06/25/2025 10:46 AM EDT) [facility] POC-GLUCOSE 90 70 - 110 mg/dL 06/25/2025 10:47 AM EDT [facility] Comment: In the event of poor peripheral blood flow, venous or arterial blood should be used due to the potential of erroneous results. Notified Nurse RBV Bellows Tester [phone] 06/25/2025 10:47 AM EDT [facility] Blood WHOLE BLOOD / Unknown 06/25/2025 10:46 AM EDT 06/25/2025 10:47 AM EDT Narrative [facility] - 06/25/2025 10:47 AM EDT Bellows Tester ID is - [id number] Mundo Díaz MD POINT OF CARE TEST ORDERABLES Fi nal Result Performing Organization Address [facility]/ZIP Co de Phone Number [facility] [address] [phone] * (ABNORMAL) PTT Heparin Protocol (06/25/2025 10:26 AM EDT) [facility] PTT Heparin 65.3(H) 45 - 65 seconds 06/25/2025 11:11 AM EDT [facility] Blood Venipuncture / Unknown 06/25/2025 10:26 AM EDT 06/25/2025 10:53 AM EDT Mundo Díaz MD LAB BLOOD ORDERABLES Final Resul t Performing Organization Address [facility]/ZIP Co de Phone Number [facility] [address] [phone] * (ABNORMAL) Prothrombin time/INR (06/25/2025 10:26 AM EDT) [facility] Protime 12.6(H) 9.0 - 12.0 seconds 06/25/2025 12:47 PM EDT [facility] INR 1.15(H) 0.80 - 1.10 06/25/2025 12:47 PM EDT [facility] Comment: Recommended therapeutic ranges using International Normalized Ratio (INR) are: INR RANGE 2.0 - 3.0 Routine oral anticoagulant therapy 2.5 - 3.5 Oral anticoagulant therapy for patients with thromboembolic events on standard doses of Coumadin and those with mechanical heart valves. Blood Venipuncture / Unknown 06/25/2025 10:26 AM EDT 06/25/2025 10:53 AM EDT Mundo Díaz MD LAB BLOOD ORDERABLES Final Resul t Performing Organization Address [facility]/ZIP Co de Phone Number [facility] [address] [phone] * Type and Screen (06/25/2025 9:11 AM EDT) ABO/Rh O Positive 06/25/2025 9:20 AM EDT [facility] [place] Antibody Screen Negative 06/25/2025 9:20 AM EDT [facility] [place] HISTCHK HIST CHECK PERFORMED 06/25/2025 9:20 AM EDT [facility] [place] Blood Venipuncture / Unknown 06/25/2025 9:11 AM EDT 06/25/2025 9:20 AM EDT us Mundo Díaz MD [facility] TEST ORDERABLES F inal Result [facility] ([place]) [address] [place] [address], [facility] [phone] * Prepare RBC: 1 Units (06/25/2025 8:37 AM EDT) Issue Date/Time [id number] [facility] [place] Product Identification Red Blood Cells [facility] [place] Product Code [id number] [facility] [place] Status Information TRANSFUSED [facility] [place] Unit Number [id number] [facility] [place]) Blood Type 5100 [facility] [place] Cross Match Results Compatible [facility] [place] us Mundo Díaz MD FS_MODEL_IP_BLOOD BANK PRODUCT O RDERABLES Final Result Performing Organization Address [facility]/ZIP Co de Phone Number [facility] ([place]) [address] [place] [address] * PTT Heparin Protocol (06/25/2025 7:47 AM EDT) PTT Heparin 65.0 45 - 65 seconds 06/25/2025 8:44 AM EDT [facility] Blood ENTIRE RIGHT UPPER ARM / Unknown Venipuncture / Unknown 06/25/2025 7:47 AM EDT 06/25/2025 8:11 AM EDT us Vlad SIERRA-C LAB BLOOD ORDERABLES Final Res ult Performing Organization Address [facility] Co de Phone Number [facility] [address] [place] [address] * (ABNORMAL) CBC Scan (06/25/2025 7:46 AM EDT) Platelet Estimate Decreased( A) Adequate 06/25/2025 8:35 AM EDT [facility] RBC Morphology Normal Normal 06/25/2025 8:35 AM EDT [facility] Hypochromia 1+ 06/25/2025 8:35 AM EDT [facility] Blood Venipuncture / Unknown 06/25/2025 7:46 AM EDT 06/25/2025 8:11 AM EDT us Vlad Waters PA-C LAB BLOOD ORDERABLES Final Res ult Performing Organization Address [facility]/ZIP Co de Phone Number [facility] [address] [place] [address] * (ABNORMAL) CBC with automated diff (06/25/2025 7:46 AM EDT) WBC 4.1 4.0 - 10.0 K/ L 06/25/2025 8:18 AM EDT [facility] RBC 2.45(L) 3.93 - 5.22 M/ L 06/25/2025 8:18 AM EDT [facility] Hemoglobin 6.4(LL) 11.2 - 15.7 GM/DL 06/25/2025 8:18 AM EDT [facility] Hematocrit 22.6(L) 34.1 - 44.9 % 06/25/2025 8:18 AM EDT [facility] MCV 92 79 - 95 fL 06/25/2025 8:18 AM EDT [facility] MCH 26.1 25.6 - 32.2 pg 06/25/2025 8:18 AM EDT [facility] MCHC 28.3(L) 32.2 - 35.5 GM/DL 06/25/2025 8:18 AM EDT [facility] RDW 20.0(H) 11.7 - 14.4 % 06/25/2025 8:18 AM EDT [facility] Platelets 60(L) 140 - 375 K/CU MM 06/25/2025 8:18 AM EDT [facility] MPV 11.4 9.4 - 12.3 fL 06/25/2025 8:18 AM EDT [facility] % Neutros 65 34 - 71 % 06/25/2025 8:18 AM EDT [facility] % Lymphs 23 19 - 52 % 06/25/2025 8:18 AM EDT [facility] % Monos 8 5 - 13 % 06/25/2025 8:18 AM EDT [facility] % Eos 3 1 - 6 % 06/25/2025 8:18 AM EDT [facility] % Baso 1 0 - 1 % 06/25/2025 8:18 AM EDT [facility] NRBC Absolute <0.01 0 - 0.012 K/ul 06/25/2025 8:18 AM EDT [facility] # Neutros 2.66 1.56 - 6.13 K/ L 06/25/2025 8:18 AM EDT [facility] # Lymphs 0.95(L) 1.18 - 3.74 K/ L 06/25/2025 8:18 AM EDT [facility] # Monos 0.33 0.24 - 0.86 K/ L 06/25/2025 8:18 AM EDT [facility] # Eos 0.12 0.04 - 0.36 K/ L 06/25/2025 8:18 AM EDT [facility] # Baso <0.03 0.01 - 0.08 K/ L 06/25/2025 8:18 AM EDT [facility] % Imm Grans 0.20 0.01 - 0.43 % 06/25/2025 8:18 AM EDT [facility] # IG <0.03 0.00 - 0.03 K/uL 06/25/2025 8:18 AM EDT [facility] Blood Venipuncture / Unknown 06/25/2025 7:46 AM EDT 06/25/2025 8:11 AM EDT Narrative [facility] - 06/25/2025 8:18 AM EDT When CBC w/ Auto Diff is ordered the lab will add a Manual Differential as a quality check at no additional charge if: Lymphocytes greater than seventy five percent with normal or increased WBC Monocytes greater than Fifteen percent Basophil greater than four percent Bands >10% or several immature myeloids are seen on scan Blast? Flag noted Atypical Lymph flag noted us Vlad Waters PA-C LAB BLOOD ORDERABLES Final Res ult [facility] [address] [place] [address], [facility] [phone] * Glucose, Nova Meter (06/25/2025 4:59 AM EDT) POC-GLUCOSE 82 70 - 110 mg/dL 06/25/2025 5:01 AM EDT [facility] Comment: In the event of poor peripheral blood flow, venous or arterial blood should be used due to the potential of erroneous results. Protocols Followed Notified Nurse RBV Bellows Tester [phone] 06/25/2025 5:01 AM EDT [facility] Blood WHOLE BLOOD / Unknown 06/25/2025 4:59 AM EDT 06/25/2025 5:01 AM EDT Narrative [facility] - 06/25/2025 5:01 AM EDT Bellows Tester ID is - [id number] us Dajuan Banuelos MD POINT OF CARE TEST ORDERABLES Fi nal Result [facility] [address] [phone] * (ABNORMAL) CBC Scan (06/24/2025 9:22 PM EDT) Platelet Estimate Decreased (A) Adequate 06/24/2025 10:12 PM EDT [facility] RBC Morphology abnormal( A) Normal 06/24/2025 10:12 PM EDT [facility] Anisocytosis 2+ 06/24/2025 10:12 PM EDT [facility] Hypochromia 2+ 06/24/2025 10:12 PM EDT [facility] Macrocytes 1+ 06/24/2025 10:12 PM EDT [facility] Poikilocytes 1+ 06/24/2025 10:12 PM EDT [facility] Blood Venipuncture / Unknown 06/24/2025 9:22 PM EDT 06/24/2025 9:32 PM EDT us Vlad Waters PA-C LAB BLOOD ORDERABLES Final Res ult [facility] [address] [phone] * (ABNORMAL) PT/INR, PTT (06/24/2025 9:22 PM EDT) aPTT 37.3(H) 22.0 - 32.0 seconds 06/24/2025 9:49 PM EDT [facility] Protime 12.4(H) 9.0 - 12.0 seconds 06/24/2025 9:49 PM EDT [facility] INR 1.13(H) 0.80 - 1.10 06/24/2025 9:49 PM EDT [facility] Blood Venipuncture / Unknown 06/24/2025 9:22 PM EDT 06/24/2025 9:32 PM EDT us Vlad Waters PA-C LAB BLOOD ORDERABLES Final Res ult [facility] [address] [phone] * (ABNORMAL) CBC with Automated Diff (06/24/2025 9:22 PM EDT) WBC 4.8 4.0 - 10.0 K/ L 06/24/2025 9:38 PM EDT [facility] RBC 2.64(L) 3.93 - 5.22 M/ L 06/24/2025 9:38 PM EDT [facility] Hemoglobin 7.1(L) 11.2 - 15.7 GM/DL 06/24/2025 9:38 PM EDT [facility] Hematocrit 24.5(L) 34.1 - 44.9 % 06/24/2025 9:38 PM EDT [facility] MCV 93 79 - 95 fL 06/24/2025 9:38 PM EDT [facility] MCH 26.9 25.6 - 32.2 pg 06/24/2025 9:38 PM EDT [facility] MCHC 29.0(L) 32.2 - 35.5 GM/DL 06/24/2025 9:38 PM EDT [facility] RDW 20.2(H) 11.7 - 14.4 % 06/24/2025 9:38 PM EDT [facility] Platelets 67(L) 140 - 375 K/CU MM 06/24/2025 9:38 PM EDT [facility] MPV 11.2 9.4 - 12.3 fL 06/24/2025 9:38 PM EDT [facility] % Neutros 72(H) 34 - 71 % 06/24/2025 9:38 PM EDT [facility] % Lymphs 19 19 - 52 % 06/24/2025 9:38 PM EDT [facility] % Monos 7 5 - 13 % 06/24/2025 9:38 PM EDT [facility] % Eos 2 1 - 6 % 06/24/2025 9:38 PM EDT [facility] % Baso 0 0 - 1 % 06/24/2025 9:38 PM EDT [facility] NRBC Absolute <0.01 0 - 0.012 K/ul 06/24/2025 9:38 PM EDT [facility] # Neutros 3.47 1.56 - 6.13 K/ L 06/24/2025 9:38 PM EDT [facility] # Lymphs 0.91(L) 1.18 - 3.74 K/ L 06/24/2025 9:38 PM EDT [facility] # Monos 0.32 0.24 - 0.86 K/ L 06/24/2025 9:38 PM EDT [facility] # Eos 0.08 0.04 - 0.36 K/ L 06/24/2025 9:38 PM EDT [facility] # Baso <0.03 0.01 - 0.08 K/ L 06/24/2025 9:38 PM EDT [facility] % Imm Grans 0.40 0.01 - 0.43 % 06/24/2025 9:38 PM EDT [facility] # IG <0.03 0.00 - 0.03 K/uL 06/24/2025 9:38 PM EDT [facility] Blood Venipuncture / Unknown 06/24/2025 9:22 PM EDT 06/24/2025 9:32 PM EDT Narrative [facility] - 06/24/2025 9:38 PM EDT When CBC w/ Auto Diff is ordered the lab will add a Manual Differential as a quality check at no additional charge if: Lymphocytes greater than seventy five percent with normal or increased WBC Monocytes greater than Fifteen percent Basophil greater than four percent Bands >10% or several immature myeloids are seen on scan Blast? Flag noted Atypical Lymph flag noted us Vlad Waters PA-C LAB BLOOD ORDERABLES Final Res ult Performing Organization Address [facility]/ZIP Co de Phone Number [facility] [address] [phone] * (ABNORMAL) PTT Heparin Protocol (06/24/2025 9:22 PM EDT) [facility] PTT Heparin 37.3(L) 45 - 65 seconds 06/24/2025 9:49 PM EDT [facility] Blood Venipuncture / Unknown 06/24/2025 9:22 PM EDT 06/24/2025 9:32 PM EDT Vlad Waters PA-C LAB BLOOD ORDERABLES Final Res ult Performing Organization Address [facility] Co de Phone Number [facility] [address] [phone] * Glucose, Nova Meter (06/24/2025 8:40 PM EDT) [facility] POC-GLUCOSE 89 70 - 110 mg/dL 06/25/2025 12:01 AM EDT [facility] Comment:In the event of poor peripheral blood flow, venous or arterial blood should be used due to the potential of erroneous results. Bellows Tester [id number] 06/25/2025 12:01 AM EDT [facility] Blood WHOLE BLOOD / Unknown 06/24/2025 8:40 PM EDT 06/25/2025 12:01 AM EDT Narrative [facility] - 06/25/2025 12:01 AM EDT Bellows Tester ID is - [id number] Dajuan Banuelos MD POINT OF CARE TEST ORDERABLES Fi nal Result Performing Organization Address [facility] Co de Phone Number [facility] [address] [phone] * XR chest 2 views (06/24/2025 2:15 PM EDT) Anatomical Region Laterality Modality Chest X-Ray 06/24/2025 3:07 PM EDT Impressions 06/24/2025 3:39 PM EDT No pneumothorax post thoracentesis. Pulmonary vascular congestion with right lower lobe consolidation and moderate right pleural effusion. Images reviewed, interpreted, and dictated by Dr. Nas Rebolledo. Transcribed by Kalyan Wisdom PA-C Narrative 06/24/2025 3:39 PM EDT TWO-VIEW CHEST 06/24/2025 2:10 PM HISTORY: Pleural effusion. Postthoracentesis. COMPARISON: June 23, 2025 FINDINGS: The cardiac silhouette is mildly enlarged. The aortic contours are normal. The mediastinal and hilar structures are unremarkable. There is pulmonary vascular congestion with a moderate right pleural effusion. There is right lower lobe consolidation. There is no pneumothorax. Status post median sternotomy. Procedure Note Nas Rebolledo MD - 06/24/2025 TWO-VIEW CHEST 06/24/2025 2:10 PM HISTORY: Pleural effusion. Postthoracentesis. COMPARISON: June 23, 2025 FINDINGS: The cardiac silhouette is mildly enlarged. The aortic contours are normal. The mediastinal and hilar structures are unremarkable. There is pulmonary vascular congestion with a moderate right pleural effusion. There is right lower lobe consolidation. There is no pneumothorax. Status post median sternotomy. IMPRESSION: No pneumothorax post thoracentesis. Pulmonary vascular congestion with right lower lobe consolidation and moderate right pleural effusion. Images reviewed, interpreted, and dictated by Dr. Nas Rebolledo. Transcribed by Kalyan Wisdom PA-C [facility] ORDERABLE S Final Result * US THORACENTESIS LT (06/24/2025 2:09 PM EDT) Anatomical Region Laterality Modality Ultrasound 06/24/2025 2:23 PM EDT Impressions 06/24/2025 2:55 PM EDT Technically successful sonographic-guided left thoracentesis with tube insertion as above. Images reviewed, interpreted, and dictated by Dr. Nas Rebolledo. Transcribed by Kalyan Wisdom PA-C Narrative 06/24/2025 2:55 PM EDT ULTRASOUND-GUIDED THORACENTESIS WITH TUBE INSERTION HISTORY: Left pleural effusion. ATTENDING RADIOLOGIST: Dr. Rebolledo. PHYSICIAN MEDICAL LEGAL INVESTIGATOR: Kalyan Wisdom PA-C. TECHNIQUE: Informed consent was obtained from the patient. The indications and complications were discussed prior to beginning the procedure. This included, but was not limited to, pain, bleeding, infection, and pneumothorax requiring chest tube placement. The left back was then prepped and draped in sterile fashion. 1% lidocaine was used for local anesthesia. Utilizing sonographic guidance, a standard thoracentesis needle and sheath were inserted into the pleural space. The needle was removed and the catheter was left in the pleural space. Approximately 300 mL of clear yellow pleural fluid was successfully removed without complication. The tube was subsequently removed from the pleural space. The patient tolerated the procedure well. Sample of the fluid was sent to lab for preordered studies. Procedure Note Nas Rebolledo MD - 06/24/2025 ULTRASOUND-GUIDED THORACENTESIS WITH TUBE INSERTION HISTORY: Left pleural effusion. ATTENDING RADIOLOGIST: Dr. Rebolledo. PHYSICIAN MEDICAL LEGAL INVESTIGATOR: Kalyan Wisdom PA-C. TECHNIQUE: Informed consent was obtained from the patient. The indications and complications were discussed prior to beginning the procedure. This included, but was not limited to, pain, bleeding, infection, and pneumothorax requiring chest tube placement. The left back was then prepped and draped in sterile fashion. 1% lidocaine was used for local anesthesia. Utilizing sonographic guidance, a standard thoracentesis needle and sheath were inserted into the pleural space. The needle was removed and the catheter was left in the pleural space. Approximately 300 mL of clear yellow pleural fluid was successfully removed without complication. The tube was subsequently removed from the pleural space. The patient tolerated the procedure well. Sample of the fluid was sent to lab for preordered studies. IMPRESSION: Technically successful sonographic-guided left thoracentesis with tube insertion as above. Images reviewed, interpreted, and dictated by Dr. Nas Rebolledo. Transcribed by Kalyan Wisdom PA-C Dajuan Banuelos MD [facility] [place] ORDERABLES Final Result * Body Fluid/CSF - Path Review (SJ) (06/24/2025 2:06 PM EDT) Pathologist [facility] Differential Comment Macrophages and blood. No malignancy seen. Manoj Cai MD 06-24-2025 06/24/2025 6:10 PM EDT [facility] Pleural Fluid STRUCTURE OF LEFT PLEURAL CAVITY / Unknown 06/24/2025 2:06 PM EDT 06/24/2025 3:50 PM EDT Dajuan Banuelos MD BODY FLUIDS AND STOOLS ORDERABLE S Final Result [facility] [address] [phone] * DIFFERENTIAL, BODY FLUID (06/24/2025 2:06 PM EDT) Pathologist [facility] Neutrophils Fluid 13 0 - 25 % 025 5:37 PM EDT [facility] Lymphocytes Fluid 30 % 025 5:37 PM EDT [facility] Monocytes Fluid 9 0 - 65 % 5:37 PM EDT [facility] Unidentified Mononuclear Cells BF 48 0 - 0 % 06/24/2025 5:37 PM EDT [facility] Pleural Fluid STRUCTURE OF LEFT PLEURAL CAVITY / Unknown 06/24/2025 2:06 PM EDT 06/24/2025 3:50 PM EDT us Dajuan Banuelos MD BODY FLUIDS AND STOOLS ORDERABLE S Final Result [facility] [address] [phone] * [facility] Non-Mental Health Professional Cytology (06/24/2025 2:06 PM EDT) AP RESULT See Note: [facility]Y [facility]Y LAB[facility]ATORY Comment: FINAL NON-HEARING AID DISPENSER CYTOLOGY REPORT DIAGNOSIS: A. BODY FLUID, LEFT, PLEURAL, THORACENTESIS: Negative for malignant cells. Final Reviewed, Diagnosed and Electronically Signed By: ERIN WAYNE, MICROSCOPIC DESCRIPTION: A. Scattered mesothelial cells and mixed inflammatory cells are present. CLINICAL HISTORY: Fluid overload SPECIMENS SUBMITTED: A. BODY FLUID, LEFTPLEURAL THORACENTESIS: GROSS SPECIMEN DESCRIPTION: A. 40 ccs of hazy, yellow fluid, scant sediment, received in fixative ThinPrep slides prepared. Cell block has been examined. Electronically signed by ERIN WAYNE MD Pleural Fluid STRUCTURE OF LEFT PLEURAL CAVITY / Unknown 06/24/2025 2:06 PM EDT Dajuan Banuelos MD PATHOLOGY/CYTOLOGY ORDERABLES Fi nal Result Performing Organization Address [facility] Co de Phone Number [facility] [address] [place] [address] * Glucose, body fluid (06/24/2025 2:06 PM EDT) Glucose, Body Fluid 119 See Comment mg/dL 06/24/2025 5:37 PM EDT [facility] BODY FLUID TYPE Pleural 06/24/2025 5:37 PM EDT [facility] Pleural Fluid STRUCTURE OF LEFT PLEURAL CAVITY / Unknown 06/24/2025 2:06 PM EDT 06/24/2025 3:50 PM EDT Narrative [facility] - 06/24/2025 5:37 PM EDT This test has been modified from the cytotechnologist supervisor's instructions and its performance characteristics were determined by the laboratory. The reference intervals and other method performance specifications are unavailable for this test. It is recommended to interpret body fluid concentrations in comparison with the corresponding serum or plasma concentrations and to integrate test results into the clinical context. us Dajuan Banuelos MD BODY FLUIDS AND STOOLS ORDERABLE S Final Result Performing Organization Address [facility]/ZIP Co de Phone Number [facility] [address] [phone] * Body Fluid Culture + Gram Stain (06/24/2025 2:06 PM EDT) Result No growth 06/27/2025 7:33 AM EDT [facility] Gram Stain Result No organisms seen 06/27/2025 7:33 AM EDT [facility] Gram Stain Result Rare WBCs 06/27/2025 7:33 AM EDT [facility] Pleural Fluid STRUCTURE OF LEFT PLEURAL CAVITY / Unknown 06/24/2025 2:06 PM EDT 06/24/2025 3:50 PM EDT Narrative [facility] - 06/27/2025 7:33 AM EDT Specimen Description: left pleural fluid us Dajuan Banuelos MD MICROBIOLOGY - GENERAL ORDERABLE S Final Result [facility] [address] [phone] * Body fluid cell count with differential (06/24/2025 2:06 PM EDT) Appearance Clear Clear 06/24/2025 5:37 PM EDT [facility] Color Yellow 06/24/2025 5:37 PM EDT [facility] BODY FLUID TYPE Pleural 5:37 PM EDT [facility] Auto WBC/Nucleated Cells BF 253 /uL 06/24/2025 5:37 PM EDT [facility] Comment: Please refer to specific WBC/Nucleated Cell Count Body Fluid reference ranges below: For Pleural: 0-1000 Peritoneal: 0-1000 Pericardial:0-1000 Synovial: 0-200 Auto RBC BF 3,000 /uL 06/24/2025 5:37 PM EDT [facility] Comment: Please refer to specific RBC Cell Count Body Fluid reference ranges below: Pleural: 0-10,000 Peritoneal: 0-10,000 Pericardial:0-10,000 Synovial:0-30 Pleural Fluid STRUCTURE OF LEFT PLEURAL CAVITY / Unknown 06/24/2025 2:06 PM EDT 06/24/2025 3:50 PM EDT [facility] - 06/24/2025 5:37 PM EDT There is normally no readily obtainable pleural, peritoneal and pericardial fluid, hence normal elements for these potential fluids are not defined. Dajuan Banuelos MD BODY FLUIDS AND STOOLS ORDERABLE S Final Result Performing Organization Address [facility] Co de Phone Number [facility] [address] [phone] * Protein, body fluid (06/24/2025 2:06 PM EDT) Protein, Fluid 1.5 See Comment g/dL 06/24/2025 5:37 PM EDT [facility] BODY FLUID TYPE Pleural 06/24/2025 5:37 PM EDT [facility] Pleural Fluid STRUCTURE OF LEFT PLEURAL CAVITY / Unknown 06/24/2025 2:06 PM EDT 06/24/2025 3:50 PM EDT [facility] - 06/24/2025 5:37 PM EDT This test has been modified from the cytotechnologist supervisor's instructions and its performance characteristics were determined by the laboratory. The reference intervals and other method performance specifications are unavailable for this test. It is recommended to interpret body fluid concentrations in comparison with the corresponding serum or plasma concentrations and to integrate test results into the clinical context. Dajuan Banuelos MD BODY FLUIDS AND STOOLS ORDERABLE S Final Result Performing Organization Address [facility] Co de Phone Number [facility] [address] [phone] * Lactate dehydrogenase (LDH), body fluid (06/24/2025 2:06 PM EDT) LDH, Fluid 67 See Comment U/L 06/24/2025 5:37 PM EDT [facility] BODY FLUID TYPE Pleural 06/24/2025 5:37 PM EDT [facility] Pleural Fluid STRUCTURE OF LEFT PLEURAL CAVITY / Unknown 06/24/2025 2:06 PM EDT 06/24/2025 3:50 PM EDT Narrative [facility] - 06/24/2025 5:37 PM EDT This test has been modified from the cytotechnologist supervisor's instructions and its performance characteristics were determined by the laboratory. The reference intervals and other method performance specifications are unavailable for this test. It is recommended to interpret body fluid concentrations in comparison with the corresponding serum or plasma concentrations and to integrate test results into the clinical context. us Dajuan Banuelos MD BODY FLUIDS AND STOOLS ORDERABLE S Final Result Performing Organization Address [facility]/ZIP Co de Phone Number [facility] [address] [phone] * PTT Heparin Protocol (06/24/2025 12:42 PM EDT) PTT Heparin 54.9 45 - 65 seconds 06/24/2025 1:24 PM EDT [facility] Blood Venipuncture / Unknown 06/24/2025 12:42 PM EDT 06/24/2025 12:59 PM EDT us Vlad Waters PA-C LAB BLOOD ORDERABLES Final Res ult Performing Organization Address [facility] Co de Phone Number [facility] [address] [phone] * (ABNORMAL) Glucose, Nova Meter (06/24/2025 12:13 PM EDT) POC-GLUCOSE 124(H) 70 - 110 mg/dL 06/24/2025 12:14 PM EDT [facility] Comment: In the event of poor peripheral blood flow, venous or arterial blood should be used due to the potential of erroneous results. Notified Nurse RBV Bellows Tester [phone] 06/24/2025 12:14 PM EDT [facility] Blood WHOLE BLOOD / Unknown 06/24/2025 12:13 PM EDT 06/24/2025 12:14 PM EDT Narrative [facility] - 06/24/2025 12:14 PM EDT Bellows Tester ID is - [id number] us Dajuan Banuelos MD POINT OF CARE TEST ORDERABLES Fi nal Result [facility] [address] [place] [id number] [phone] * ECHO COMPLETE (DOPPLER / COLOR) W CONTRAST (06/24/2025 8:00 AM EDT) Anatomical Region Laterality Modality Heart Vascular Ultraso und 06/24/2025 8:38 AM EDT Narrative 06/24/2025 8:03 PM EDT TRANSTHORACIC ECHOCARDIOGRAPHY REPORT Demographics Patient Name: VIET VORA : 1970 Age: 55 year(s) Corporate ID Number: [id number] Gender Female Social Work Associate: Familia Garcia, Height: 67 inches [facility] Referring Physician: ADEBAYO TORRES Weight: 132 pounds Interpreting MINDY MCKEON MD BMI: 20.67 kg/m^2 Physician: Date of Service: 06/24/2025 Blood Pressure: 154/92 mmHg Room Number: 566 Type of Study: TTE procedure: ECHO COMPLETE (DOPPLER / COLOR) W OR WO CONTRAST. Patient Status: ALICE [facility] Quality: Adequate visualization History/Tech Notes: Indication: shortness of breath R06.02, CHF Impression: ######################################## Definity ultrasound enhancing agent administered for endocardial border definition. Normal sized left ventricle. Mild left ventricular hypertrophy. Visually estimated ejection fraction 20% +/- 5%. Severe left ventricular systolic dysfunction with abnormal systolic strain pattern. Restrictive filling pattern consistent with severely increased LV filling pressure (Grade III Diastolic dysfunction). Moderate (2+) mitral regurgitation. PISA ERO: 0.3 cm2. Moderate (2+) tricuspid regurgitation. Severe pulmonary hypertension. RVSP 90 mmHg. Moderate pulmonic regurgitation (2+). Severely abnormal left atrial volume index 58 ml/m^2. Severely dilated right ventricle. Abnormal TAPSE; abnormal right ventricular function. Elevated central venous pressure >15mmHg. ######################################## Measurements Summary: LVEDd: 4.92 cm LVESd: 4.13 cm IVSEd: 1.2 cm AO Root:2.9 cm LVPWd: 1.12 cm Contractility Score Global Left Ventricular Hypokinesis was noted. LV regional wall motion: (0-Not visualized 1-Normal 2-Hypokinesis 3-Akinesis 4-Dyskinesis 5-Aneurysm) Left Ventricle Peak E-wave: 1.1 Peak A-wave: 0.43 m/s E/A ratio: 2.58 m/s Volume [id number] LV length: 8.52 cm ml Volume fbelpkgn68.42 ml LVOT diameter: 1.7 cm Normal sized left ventricle. Mild left ventricular hypertrophy. Visually estimated ejection fraction 20% +/- 5%. Severe left ventricular systolic dysfunction with abnormal systolic strain pattern. Restrictive filling pattern consistent with severely increased LV filling pressure (Grade III Diastolic dysfunction). No left ventricular masses or thrombi. Right Ventricle Diastolic dimension: 4.96 RV systolic pressure: 90.15 mmHg cm Severely dilated right ventricle. Abnormal TAPSE; abnormal right ventricular function. Left Atrium LA dimension: 4.6 cm LA volume:98.51 ml LA/Aorta: 1.59 Severely abnormal left atrial volume index 58 ml/m^2. Intact atrial septum. No atrial mass or thrombus. Right Atrium Normal sized right atrium. Intact atrial septum. No atrial mass or thrombus. Mitral Valve Deceleration time: Area PHT: 3.32 cm^2 Mean velocity: 121.63 msec P1/2t: 66.19 msec 0.79 m/s MR velocity: 5.13 Mean gradient: m/s 2.88 mmHg Area (continuity): Peak gradient: 1.35 cm^2 8.04 mmHg MR VTI: 207.26 cm Thickened mitral valve leaflets. Mitral valve annulus calcification. Moderate (2+) mitral regurgitation. PISA ERO: 0.3 cm2. No mitral stenosis. No masses or vegetations seen. Aortic Valve AI P1/2t: 406.25 msec Peak velocity: 1.17 m/s LVOT VTI: 20.6 cm Peak gradient: 5.44 mmHg Deceleration time: 1400.88 msec Three cusped aortic valve. Thickened free edges of the aortic valve leaflets. Nodular calcification of LCC noted. Slice artifact of LCC calcification noted in PLAX view. Mild aortic regurgitation. No aortic stenosis. No masses or vegetations seen. Tricuspid Valve TR velocity: 4.33 m/s TR gradient: 75.18872 mmHg Estimated RAP: 15 mmHg RVSP: 90.15 mmHg Structurally normal tricuspid valve. Moderate (2+) tricuspid regurgitation. Severe pulmonary hypertension. RVSP 90 mmHg. No tricuspid stenosis. No masses or vegetations seen. Pulmonic Valve Acceleration time: 110.37 msec PASP: 90.15 mmHg Structurally normal pulmonic valve. Moderate pulmonic regurgitation (2+). No pulmonic stenosis. No masses or vegetations seen. Great Vessels Aorta Aortic Root: 2.9 cm LVOT Diameter: 1.7 cm Visualized thoracic aorta is normal. Normal aortic root. No evidence of dissection. Dilated IVC with no inspiratory collapse. Elevated central venous pressure >15mmHg. Pericardium / Pleura No pericardial effusion. Other Definity ultrasound enhancing agent administered for endocardial border definition. Procedure Note Mindy Mckeon MD - 06/24/2025 TRANSTHORACIC ECHOCARDIOGRAPHY REPORT Demographics Patient Name: VIET VORA : 1970 Age: 55 year(s) Corporate ID Number: [id number] Gender Female Social Work Associate: Familia Garcia, Height: 67 inches [facility] Referring Physician: ADEBAYO TORRES Weight: 132 karen MCKEON MD BMI: 20.67 kg/m^2 Physician: Date of Service: 06/24/2025 Blood Pressure: 154/92 mmHg Room Number: 566 Type of Study: TTE procedure: ECHO COMPLETE (DOPPLER / COLOR) W OR WO CONTRAST. Patient Status: ALICE Study Location: [facility] Quality: Adequate visualization History/Tech Notes: Indication: shortness of breath R06.02, CHF Impression: ######################################## Definity ultrasound enhancing agent administered for endocardial border definition. Normal sized left ventricle. Mild left ventricular hypertrophy. Visually estimated ejection fraction 20% +/- 5%. Severe left ventricular systolic dysfunction with abnormal systolicstrain pattern. Restrictive filling pattern consistent with severely increased LVfilling pressure (Grade III Diastolic dysfunction). Moderate (2+) mitral regurgitation. PISA ERO: 0.3 cm2. Moderate (2+) tricuspid regurgitation. Severe pulmonary hypertension. RVSP 90 mmHg. Moderate pulmonic regurgitation (2+). Severely abnormal left atrial volume index 58 ml/m^2. Severely dilated right ventricle. Abnormal TAPSE; abnormal right ventricular function. Elevated central venous pressure >15mmHg. ######################################## Measurements Summary: LVEDd: 4.92 cm LVESd: 4.13 cm IVSEd: 1.2 cm AO Root:2.9 cm LVPWd: 1.12 cm Contractility Score Global Left Ventricular Hypokinesis was noted. LV regional wall motion: (0-Not visualized 1-Normal 2-Hypokinesis 3-Akinesis 4-Dyskinesis 5-Aneurysm) Left Ventricle Peak E-wave: 1.1 Peak A-wave: 0.43 m/s E/A ratio: 2.58 m/s Volume [id number] LV length: 8.52 cm ml Volume fepgeoyt83.42 ml LVOT diameter: 1.7 cm Normal sized left ventricle. Mild left ventricular hypertrophy. Visually estimated ejection fraction 20% +/- 5%. Severe left ventricular systolic dysfunction with abnormal systolicstrain pattern. Restrictive filling pattern consistent with severely increased LVfilling pressure (Grade III Diastolic dysfunction). No left ventricular masses or thrombi. Right Ventricle Diastolic dimension: 4.96 RV systolic pressure: 90.15 mmHg cm Severely dilated right ventricle. Abnormal TAPSE; abnormal right ventricular function. Left Atrium LA dimension: 4.6 cm LA volume:98.51 ml LA/Aorta: 1.59 Severely abnormal left atrial volume index 58 ml/m^2. Intact atrial septum. No atrial mass or thrombus. Right Atrium Normal sized right atrium. Intact atrial septum. No atrial mass or thrombus. Mitral Valve Deceleration time: Area PHT: 3.32 cm^2 Mean velocity: 121.63 msec P1/2t: 66.19 msec 0.79 m/s MR velocity: 5.13 Mean gradient: m/s 2.88 mmHg Area (continuity): Peak gradient: 1.35 cm^2 8.04 mmHg MR VTI: 207.26 cm Thickened mitral valve leaflets. Mitral valve annulus calcification. Moderate (2+) mitral regurgitation. PISA ERO: 0.3 cm2. No mitral stenosis. No masses or vegetations seen. Aortic Valve AI P1/2t: 406.25 msec Peak velocity: 1.17 m/s LVOT VTI: 20.6 cm Peak gradient: 5.44 mmHg Deceleration time: 1400.88 msec Three cusped aortic valve. Thickened free edges of the aortic valve leaflets. Nodularcalcification of LCC noted. Slice artifact of LCC calcification noted in PLAX view. Mild aortic regurgitation. No aortic stenosis. No masses or vegetations seen. Tricuspid Valve TR velocity: 4.33 m/s TR gradient: 75.10899 mmHg Estimated RAP: 15 mmHg RVSP: 90.15 mmHg Structurally normal tricuspid valve. Moderate (2+) tricuspid regurgitation. Severe pulmonary hypertension. RVSP 90 mmHg. No tricuspid stenosis. No masses or vegetations seen. Pulmonic Valve Acceleration time: 110.37 msec PASP: 90.15 mmHg Structurally normal pulmonic valve. Moderate pulmonic regurgitation (2+). No pulmonic stenosis. No masses or vegetations seen. Great Vessels Aorta Aortic Root: 2.9 cm LVOT Diameter: 1.7 cm Visualized thoracic aorta is normal. Normal aortic root. No evidence of dissection. Dilated IVC with no inspiratory collapse. Elevated central venous pressure >15mmHg. Pericardium / Pleura No pericardial effusion. Other Definity ultrasound enhancing agent administered for endocardial border definition. us Dajuan Banuelos MD CV ECHO ORDERABLES Final Result * Hepatitis panel, acute (06/24/2025 6:33 AM EDT) Hep A IgM Nonreactive Nonreactive 06/24/2025 11:46 AM EDT [facility] Hep B C IgM Nonreactive Nonreactive 06/24/2025 11:46 AM EDT [facility] Hepatitis B surface antigen Nonreactive Nonreactive 06/24/2025 11:46 AM EDT [facility] Hepatitis C Ab Nonreactive Nonreactive 06/24/20 11:46 AM EDT [facility] Comment: Lime Trimmer recommends confirmatory testing on all reactives and equivocals. Blood Venipuncture / Unknown 06/24/2025 6:33 AM EDT 06/24/2025 6:36 AM EDT us Blaine Moreno MD LAB BLOOD ORDERABLES Final Resul t [facility] [address] [place] [address], [facility] [phone] * (ABNORMAL) PROBNP (06/24/2025 6:33 AM EDT) ProBNP (pg/mL) >70,000(H) 16 - 334 pg/mL 06/24/2025 7:17 AM EDT [facility] Blood Venipuncture / Unknown 06/24/2025 6:33 AM EDT 06/24/2025 6:36 AM EDT Narrative [facility] - 06/24/2025 7:17 AM EDT As of February 07, 2025: NT-ProBNP is a new test on our [employer] Alinity Immunoassay analyzer. Please review new age and gender specific reference ranges. us Vlad Waters PA-C LAB BLOOD ORDERABLES Final Res ult [facility] [address] [phone] * (ABNORMAL) Comprehensive Metabolic Panel (06/24/2025 6:33 AM EDT) Sodium 142 136 - 145 meq/L 06/24/2025 7:16 AM EDT [facility] Potassium 4.4 3.4 - 5.1 meq/L 06/24/2025 7:16 AM EDT [facility] Chloride 101 98 - 112 meq/L 06/24/2025 7:16 AM EDT [facility] CO2 25 22 - 29 meq/L 06/24/2025 7:16 AM EDT [facility] Calcium 8.7 8.4 - 10.2 mg/dL 06/24/2025 7:16 AM EDT [facility] Glucose 108(H) 74 - 100 mg/dL 06/24/2025 7:16 AM EDT [facility] BUN 39.6(H) 9.8 - 20.1 mg/dL 06/24/2025 7:16 AM EDT [facility] Creatinine 2.74(H) 0.57 - 1.11 mg/dL 06/24/2025 7:16 AM EDT [facility] BUN/Creatinine 14 8 - 20 06/24/2025 7:16 AM EDT [facility] eGFR (mL/min/1.73m2) 20(L) >=60 mL/min/1. 73m2 06/24/2025 7:16 AM EDT [facility] Comment:ESTIMATED GFR IS NOT ACCURATE CREATININE CLEARANCE IN PREDICTING GLOMERULAR FILTRATION RATE. ESTIMATED GFR IS NOT APPLICABLE FOR DIALYSIS PATIENTS. Albumin 2.9(L) 3.5 - 5.0 g/dL 06/24/2025 7:16 AM EDT [facility] Alkaline Phosphatase 247(H) 40 - 150 U/L 06/24/2025 7:16 AM EDT [facility] ALT 13 <=34 U/L 06/24/2025 7:16 AM EDT [facility] Comment: ALT2 reagent used for testing does not contain P5P supplementation and therefore may miss ALT elevations in patients with B6 deficiency. This population may be as high as 10% in the [place], with risk factors including malabsorption, drug interactions, and alcoholic hepatitis. AST 38(H) 11 - 34 U/L 06/24/2025 7:16 AM T [facility] Comment: AST2 reagent used for testing does not contain P5P supplementation and therefore may miss AST elevations in patients with B6 deficiency. This population may be as high as 10% in the [place], with risk factors including malabsorption, drug interactions, and alcoholic hepatitis. Total Bilirubin 0.7 0.2 - 1.2 mg/dL 06/24/2025 7:16 AM T [facility] Protein, Total 7.3 6.4 - 8.3 g/dL 06/24/2025 7:16 AM EDT [facility] Globulin 4.4(H) 2.5 - 4.1 g/dL 06/24/2025 7:16 AM T [facility] Anion Gap 20(H) 4 - 12 06/24/2025 7:16 AM T [facility] A/G Ratio 0.7 0.7 - 1.9 06/24/2025 7:16 AM [facility] Osmolality Calc 293.3 mOsm/kg 7:16 AM [facility] Blood Venipuncture / Unknown 06/24/2025 6:33 AM EDT 06/24/2025 6:36 AM EDT us Vlad Waters PA-C LAB BLOOD ORDERABLES Final Res ult [facility] [address] [phone] * (ABNORMAL) CBC Scan (06/24/2025 6:32 AM EDT) Pathologist [facility] Platelet Estimate Decreased (A) Adequate 06/24/2025 7:29 AM EDT [facility] RBC Morphology abnormal( A) Normal 06/24/2025 7:29 AM EDT [facility] Anisocytosis 2+ 06/24/2025 7:29 AM EDT [facility] Hypochromia 2+ 06/24/2025 7:29 AM EDT [facility] Polychromasia 1+ 06/24/2025 7:29 AM EDT [facility] Macrocytes 1+ 06/24/2025 7:29 AM EDT [facility] Blood Venipuncture / Unknown 06/24/2025 6:32 AM EDT 06/24/2025 6:36 AM EDT us Vlad Waters PA-C LAB BLOOD ORDERABLES Final Res ult [facility] [address] [phone] * (ABNORMAL) CBC with automated diff (06/24/2025 6:32 AM EDT) [facility] WBC 4.6 4.0 - 10.0 K/ L 06/24/2025 6:57 AM EDT [facility] RBC 3.33(L) 3.93 - 5.22 M/ L 06/24/2025 6:57 AM EDT [facility] Hemoglobin 8.6(L) 11.2 - 15.7 GM/DL 06/24/2025 6:57 AM EDT [facility] Hematocrit 31.2(L) 34.1 - 44.9 % 06/24/2025 6:57 AM EDT [facility] MCV 94 79 - 95 fL 06/24/2025 6:57 AM EDT [facility] MCH 25.8 25.6 - 32.2 pg 06/24/2025 6:57 AM EDT [facility] MCHC 27.6(L) 32.2 - 35.5 GM/DL 06/24/2025 6:57 AM EDT [facility] RDW 20.2(H) 11.7 - 14.4 % 06/24/2025 6:57 AM EDT [facility] Platelets 67(L) 140 - 375 K/CU MM 06/24/2025 6:57 AM EDT [facility] MPV 06/24/2025 6:57 AM EDT [facility] Comment:Unable to report due to abnormal Platelet population distribution. % Neutros 70 34 - 71 % 06/24/2025 6:57 AM EDT [facility] % Lymphs 20 19 - 52 % 06/24/2025 6:57 AM EDT [facility] % Monos 6 5 - 13 % 06/24/2025 6:57 AM EDT [facility] % Eos 2 1 - 6 % 06/24/2025 6:57 AM EDT [facility] % Baso 1 0 - 1 % 06/24/2025 6:57 AM EDT [facility] NRBC Absolute <0.01 0 - 0.012 K/ul 06/24/2025 6:57 AM EDT [facility] # Neutros 3.20 1.56 - 6.13 K/ L 06/24/2025 6:57 AM EDT [facility] # Lymphs 0.93(L) 1.18 - 3.74 K/ L 06/24/2025 6:57 AM EDT [facility] # Monos 0.27 0.24 - 0.86 K/ L 06/24/2025 6:57 AM EDT [facility] # Eos 0.10 0.04 - 0.36 K/ L 06/24/2025 6:57 AM EDT [facility] # Baso 0.04 0.01 - 0.08 K/ L 06/24/2025 6:57 AM EDT [facility] % Imm Grans 0.70(H) 0.01 - 0.43 % 06/24/2025 6:57 AM EDT [facility] # IG 0.03 0.00 - 0.03 K/uL 06/24/2025 6:57 AM EDT [facility] Blood Venipuncture / Unknown 06/24/2025 6:32 AM EDT 06/24/2025 6:36 AM EDT Narrative [facility] - 06/24/2025 6:57 AM EDT When CBC w/ Auto Diff is ordered the lab will add a Manual Differential as a quality check at no additional charge if: Lymphocytes greater than seventy five percent with normal or increased WBC Monocytes greater than Fifteen percent Basophil greater than four percent Bands >10% or several immature myeloids are seen on scan Blast? Flag noted Atypical Lymph flag noted Vlad Waters PA-C LAB BLOOD ORDERABLES Final Res ult Performing Organization Address City/[facility]/ZIP Co de Phone Number [facility] [address] [phone] * (ABNORMAL) PTT Heparin Protocol (06/24/2025 6:32 AM EDT) PTT Heparin 44.1(L) 45 - 65 seconds 06/24/2025 7:17 AM EDT [facility] Blood Venipuncture / Unknown 06/24/2025 6:32 AM EDT 06/24/2025 6:36 AM EDT Vlad Waters PA-C LAB BLOOD ORDERABLES Final Res ult [facility] [address] [phone] * (ABNORMAL) High Sensitivity Troponin I (06/24/2025 6:32 AM EDT) Troponin I High Sensitivity (pg/mL) 2,424.1(H H) <=14 pg/mL 06/24/2025 7:04 AM EDT [facility] Blood Venipuncture / Unknown 06/24/2025 6:32 AM EDT 06/24/2025 6:36 AM EDT Narrative [facility] - 06/24/2025 7:04 AM EDT Applicable to [facility] only. Effective December 11 the lab will begin using a new chemistry analyzer. HsTroponin methodology, reference ranges and critical values have changed. us Vlad Waters PA-C LAB BLOOD ORDERABLES Final Res ult Performing Organization Address City/[facility]/ZIP Co de Phone Number [facility] [address] [phone] * Glucose, Nova Meter (06/24/2025 4:57 AM EDT) POC-GLUCOSE 108 70 - 110 mg/dL 06/24/2025 4:58 AM EDT [facility] Comment: In the event of poor peripheral blood flow, venous or arterial blood should be used due to the potential of erroneous results. Protocols Followed Notified Nurse RBV Bellows Tester [phone] 06/24/2025 4:58 AM EDT [facility] Blood WHOLE BLOOD / Unknown 06/24/2025 4:57 AM EDT 06/24/2025 4:58 AM EDT Narrative [facility] - 06/24/2025 4:58 AM EDT Bellows Tester ID is - [id number] us Vlad Waters PA-C POINT OF CARE TEST ORDERABLES Final Result Performing Organization Address [facility]/ZIP Co de Phone Number [facility] [address] [phone] * (ABNORMAL) PTT Heparin Protocol (06/23/2025 11:27 PM EDT) PTT Heparin 30.9(L) 45 - 65 seconds 06/24/2025 12:30 AM EDT [facility] Blood Venipuncture / Unknown 06/23/2025 11:27 PM EDT 06/24/2025 12:16 AM EDT Vlad Waters PA-C LAB BLOOD ORDERABLES Final Res ult [facility] [address] [phone] * Prothrombin time/INR (06/23/2025 11:27 PM EDT) Protime 11.4 9.0 - 12.0 seconds 06/24/2025 12:30 AM EDT [facility] INR 1.03 0.80 - 1.10 06/24/2025 12:30 AM EDT [facility] Comment: Recommended therapeutic ranges using International Normalized Ratio (INR) are: INR RANGE 2.0 - 3.0 Routine oral anticoagulant therapy 2.5 - 3.5 Oral anticoagulant therapy for patients with thromboembolic events on standard doses of Coumadin and those with mechanical heart valves. Blood Venipuncture / Unknown 06/23/2025 11:27 PM EDT 06/24/2025 12:16 AM EDT Vlad Waters PA-C LAB BLOOD ORDERABLES Final Res ult Performing Organization Address [facility] Co de Phone Number [facility] [address] [phone] * XR chest AP portable (06/23/2025 10:57 PM EDT) Anatomical Region Laterality Modality Chest X-Ray 06/23/2025 11:3 1 PM EDT Impressions 06/23/2025 11:31 PM EDT Impression: Probable acute pulmonary edema pattern Authenticated and Narrative 06/23/2025 11:31 PM EDT FINAL REPORT TECHNIQUE: null CLINICAL HISTORY: Shortness of breath COMPARISON: null FINDINGS: 1 view chest x-ray Comparison: 06/17/2024 Findings: Cardiomegaly with diffuse bilateral consolidation. Bilateral interstitial and vascular prominence. Bilateral pleural effusions also noted. Probable pulmonary edema, pneumonia not excluded. Sternotomy. No acute bony abnormality. Procedure Note Stas Lopez MD - 06/23/2025 FINAL REPORT TECHNIQUE: null CLINICAL HISTORY: Shortness of breath COMPARISON: null FINDINGS: 1 view chest x-ray Comparison: 06/17/2024 Findings: Cardiomegaly with diffuse bilateral consolidation. Bilateral interstitial and vascular prominence. Bilateral pleural effusions also noted. Probable pulmonary edema, pneumonia not excluded. Sternotomy. No acute bony abnormality. IMPRESSION: Impression: Probable acute pulmonary edema pattern Authenticated and Vlad Waters PA-C IMG DIAGNOSTIC IMAGING ORDERAB LES Final Result * ECG 12 lead (06/23/2025 10:44 PM EDT) VENTRICULAR RATE EKG/MIN 68 BPM GE MUSE ATRIAL RATE (MCT) 68 BPM GE MUSE [place] Interval 140 ms GE MUSE QRS-INTERVAL (MSEC) 116 ms GE MUSE QT Interval 440 ms GE MUSE QTC Interval 467 ms GE MUSE P [place] 89 degrees GE MUSE R AXIS (MCT) 118 degrees GE MUSE T Wave [place] -57 degrees GE MUSE [place] Diagnosis Normal sinus rhythm Right axis deviation Pulmonary disease pattern ST & T wave abnormality, consider inferior ischemia Abnormal ECG When compared with ECG of 23-JUN-2025 22:43, ST no longer depressed in Inferior leads T wave inversion now evident in Inferior leads Confirmed by Mindy Mckeon ([id number]) on 06/28/2025 5:36:53 PM GE MUSE 06/23/2025 10:4 4 PM EDT 06/28/2025 5:36 PM EDT Vlad Waters PA-C ECG ORDERABLES Final Result GE MUSE * (ABNORMAL) CBC Scan (06/23/2025 8:26 PM EDT) Platelet Estimate Decreased (A) Adequate 06/23/2025 9:20 PM EDT [facility] RBC Morphology abnormal( A) Normal 06/23/2025 9:20 PM EDT [facility] Anisocytosis 1+ 06/23/2025 9:20 PM EDT [facility] Hypochromia 2+ 06/23/2025 9:20 PM EDT [facility] Poikilocytes 1+ 06/23/2025 9:20 PM EDT [facility] Blood Venipuncture / Unknown 06/23/2025 8:26 PM EDT 06/23/2025 8:43 PM EDT Dajuan Banuelos MD LAB BLOOD ORDERABLES Final Resul t Performing Organization Address [facility] Phone Number [facility] [address] [phone] * (ABNORMAL) High Sensitivity Troponin I (06/23/2025 8:26 PM EDT) Troponin I High Sensitivity (pg/mL) 2,560.3(H H) <=14 pg/mL 06/23/2025 9:16 PM EDT [facility] Blood Venipuncture / Unknown 06/23/2025 8:26 PM EDT 06/23/2025 8:43 PM EDT Narrative [facility] - 06/23/2025 9:16 PM EDT Applicable to [facility] only. Effective December 11 the lab will begin using a new chemistry analyzer. HsTroponin methodology, reference ranges and critical values have changed. us Dajuan Banuelos MD LAB BLOOD ORDERABLES Final Resul t Performing Organization Address [facility] de Phone Number [facility] [address] [phone] * (ABNORMAL) Comprehensive Metabolic Panel (06/23/2025 8:26 PM EDT) Sodium 141 136 - 145 meq/L 06/23/2025 9:09 PM EDT [facility] Potassium 4.2 3.4 - 5.1 meq/L 06/23/2025 9:09 PM EDT [facility] Chloride 101 98 - 112 meq/L 06/23/2025 9:09 PM EDT [facility] CO2 24 22 - 29 meq/L 06/23/2025 9:09 PM [facility] Calcium 8.4 8.4 - 10.2 mg/dL 06/23/2025 9:09 PM [facility] Glucose 103(H) 74 - 100 mg/dL 06/23/2025 9:09 PM [facility] BUN 38.1(H) 9.8 - 20.1 mg/dL 06/23/2025 9:09 PM [facility] Creatinine 2.72(H) 0.57 - 1.11 mg/dL 06/23/2025 9:09 PM [facility] BUN/Creatinine 14 8 - 20 06/23/2025 9:09 PM [facility] eGFR (mL/min/1.73m2) 20(L) >=60 mL/min/1. 73m2 06/23/2025 9:09 PM [facility] Comment:ESTIMATED GFR IS NOT ACCURATE CREATININE CLEARANCE IN PREDICTING GLOMERULAR FILTRATION RATE. ESTIMATED GFR IS NOT APPLICABLE FOR DIALYSIS PATIENTS. Albumin 2.7(L) 3.5 - 5.0 g/dL 06/23/2025 9:09 PM [facility] Alkaline Phosphatase 228(H) 40 - 150 U/L 06/23/2025 9:09 PM [facility] ALT 12 <=34 U/L 06/23/2025 9:09 PM [facility] Comment: ALT2 reagent used for testing does not contain P5P supplementation and therefore may miss ALT elevations in patients with B6 deficiency. This population may be as high as 10% in the [place], with risk factors including malabsorption, drug interactions, and alcoholic hepatitis. AST 32 11 - 34 U/L 06/23/2025 9:09 PM [facility] Comment: AST2 reagent used for testing does not contain P5P supplementation and therefore may miss AST elevations in patients with B6 deficiency. This population may be as high as 10% in the [place], with risk factors including malabsorption, drug interactions, and alcoholic hepatitis. Total Bilirubin 0.7 0.2 - 1.2 mg/dL 06/23/2025 9:09 PM [facility] Protein, Total 6.7 6.4 - 8.3 g/dL 06/23/2025 9:09 PM EDT [facility] Globulin 4.0 2.5 - 4.1 g/dL 06/23/2025 9:09 PM EDT [facility] Anion Gap 20(H) 4 - 12 06/23/2025 9:09 PM EDT [facility] A/G Ratio 0.7 0.7 - 1.9 06/23/2025 9:09 PM EDT [facility] Osmolality Calc 290.6 mOsm/kg 9:09 PM EDT [facility] Blood Venipuncture / Unknown 06/23/2025 8:26 PM EDT 06/23/2025 8:43 PM EDT us Dajuan Banuelos MD LAB BLOOD ORDERABLES Final Resul t [facility] [address] [phone] * (ABNORMAL) CBC with automated diff (06/23/2025 8:26 PM EDT) WBC 5.3 4.0 - 10.0 K/ L 06/23/2025 8:49 PM EDT [facility] RBC 2.98(L) 3.93 - 5.22 M/ L 06/23/2025 8:49 PM EDT [facility] Hemoglobin 7.7(L) 11.2 - 15.7 GM/DL 06/23/2025 8:49 PM EDT [facility] Hematocrit 27.9(L) 34.1 - 44.9 % 06/23/2025 8:49 PM EDT [facility] MCV 94 79 - 95 fL 06/23/2025 8:49 PM EDT [facility] MCH 25.8 25.6 - 32.2 pg 06/23/2025 8:49 PM EDT [facility] MCHC 27.6(L) 32.2 - 35.5 GM/DL 06/23/2025 8:49 PM EDT [facility] RDW 19.8(H) 11.7 - 14.4 % 06/23/2025 8:49 PM EDT [facility] Platelets 71(L) 140 - 375 K/CU MM 06/23/2025 8:49 PM EDT [facility] MPV 11.5 9.4 - 12.3 fL 06/23/2025 8:49 PM EDT [facility] % Neutros 70 34 - 71 % 06/23/2025 8:49 PM EDT [facility] % Lymphs 20 19 - 52 % 06/23/2025 8:49 PM EDT [facility] % Monos 7 5 - 13 % 06/23/2025 8:49 PM EDT [facility] % Eos 2 1 - 6 % 06/23/2025 8:49 PM EDT [facility] % Baso 1 0 - 1 % 06/23/2025 8:49 PM EDT [facility] NRBC Absolute <0.01 0 - 0.012 K/ul 06/23/2025 8:49 PM EDT [facility] # Neutros 3.67 1.56 - 6.13 K/ L 06/23/2025 8:49 PM EDT [facility] # Lymphs 1.03(L) 1.18 - 3.74 K/ L 06/23/2025 8:49 PM EDT [facility] # Monos 0.35 0.24 - 0.86 K/ L 06/23/2025 8:49 PM EDT [facility] # Eos 0.11 0.04 - 0.36 K/ L 06/23/2025 8:49 PM EDT [facility] # Baso 0.06 0.01 - 0.08 K/ L 06/23/2025 8:49 PM EDT [facility] % Imm Grans 0.80(H) 0.01 - 0.43 % 06/23/2025 8:49 PM EDT [facility] # IG 0.04(H) 0.00 - 0.03 K/uL 06/23/2025 8:49 PM EDT [facility] Blood Venipuncture / Unknown 06/23/2025 8:26 PM EDT 06/23/2025 8:43 PM EDT Narrative [facility] - 06/23/2025 8:49 PM EDT When CBC w/ Auto Diff is ordered the lab will add a Manual Differential as a quality check at no additional charge if: Lymphocytes greater than seventy five percent with normal or increased WBC Monocytes greater than Fifteen percent Basophil greater than four percent Bands >10% or several immature myeloids are seen on scan Blast? Flag noted Atypical Lymph flag noted us Dajuan Banuelos MD LAB BLOOD ORDERABLES Final Resul t [facility] [address] [phone] * EKG-SCANNED (06/23/2025) Narrative 06/23/2025 Ordered by an unspecified provider. us Default Scanning Provider SCAN ORDERS Final Result documented in this encounter Visit Diagnoses Diagnosis CHF exacerbation (HCC)- Primary Congestive heart failure, unspecified Mass of lung Pleural effusion on right Unspecified pleural effusion Fluid overload documented in this encounter Admitting Diagnoses Diagnosis Fluid overload documented in this encounter Administered Medications Inactive Administered Medications - up to 3 most recent administrations Medication Order MAR Action Action Date Dose Rate Site acetaminophen (TYLENOL) tablet 1,000 mg 1,000 mg Every 6 hours PRN, oral, fever greater than or equal to 38C, Starting on 06/23/25 at 1851, Recommended maximum dose of acetaminophen is 4000 mg from all sources in 24 hours acetaZOLAMIDE (DIAMOX) tablet 250 mg 250 mg 2 times daily, oral, First dose on Tue06/24/25 at 2130, Look-alike/Sound-alike medication Given 06/29/2025 8:23 AM EDT 250 mg Given 06/28/2025 8:32 PM EDT 250 mg Given 06/28/2025 11:32 AM EDT 250 mg aspirin EC tablet 81 mg 81 mg Daily, oral, First dose on Tue06/24/25 at 0900, * DO NOT CRUSH THIS DOSAGE FORM * Given 06/29/2025 8:26 AM EDT 8 1 mg Given 06/28/2025 11:31 AM EDT 81 mg Given 06/27/2025 9:02 AM EDT 81 mg atorvastatin (LIPITOR) tablet 40 mg 40 mg Every Night, oral, First dose on 06/24/25 at 2100 Given 06/28/2025 8:30 PM EDT 40 mg Given 06/27/2025 9:23 PM EDT 40 mg Given 06/26/2025 8:33 PM EDT 40 mg budesonide (PULMICORT) nebulizer suspension 0.5 mg 0.5 mg 2 times daily (RT), nebulization, First dose on 06/23/25 at 2000, *RESPIRATORY THERAPY TREATMENT*, What is the respiratory therapy Modality? Small volume Nebulization Given 06/28/2025 9:14 PM EDT 0.5 mg Given 06/23/2025 8:45 PM EDT 0.5 mg carvediloL (COREG) tablet 12.5 mg 12.5 mg 2 times daily with breakfast and dinner, oral, First dose on 06/23/25 at 2000, Hold for systolic BP < 90 mmHg or for HR < 50 BPM Given 06/29/2025 8:24 AM EDT 12.5 mg Given 06/28/2025 6:00 PM EDT 12.5 mg Given 06/28/2025 11:17 AM EDT 12.5 mg cloNIDine (CATAPRES) tablet 0.1 mg 0.1 mg Every 8 hours PRN, oral, high blood pressure (specify), Sustained SBP greater than 170 or sustained DBP greater than 100, Starting on Tue06/23/25 at 2322, Look-alike/Sound-alike medication Given 06/24/2025 12:17 PM EDT 0.1 m g dextrose 50% (D50W) injection 25 g 25 g Every 15 min PRN, intravenous, low blood glucose (specify value in prn comments), less than 41 mg/dL or 41-69 mg/dL and unable to take PO, Starting on Tue06/24/25 at 0229, Repeat blood glucose every 15 minutes until blood glucose greater than 70 mg/dL. Call Provider if not resolved after 2 treatments Repeat BS in 1 hour, retime for 1 hour after blood sugar greater than 70 mg/dL If less than 41: Repeat Finger stick within 5 minutes with same machine Send serum glucose level: Do not wait on lab to treat diphenhydrAMINE (BENADRYL) capsule 25 mg 25 mg Every Night PRN, oral, itching, sleep, Starting on Tue06/23/25 at 1851 doxazosin (CARDURA) tablet 2 mg 2 mg 2 times daily, oral, First dose on Tue06/24/25 at 2130 Given 06/29/2025 8:23 AM EDT 2 mg Given 06/28/2025 8:30 PM EDT 2 mg Given 06/28/2025 11:18 AM EDT 2 mg glucagon injection 1 mg 1 mg Every 15 min PRN, intraMUSCULAR, low blood glucose (specify value in prn comments), For Patients without IV access and blood glucose 41-69 mg/dL AND unable to take PO OR Less than 41 mg/dL, Starting on Tue06/24/25 at 0229, Caution: glucagon . Roll patient on their side when administering to prevent aspiration. Call Provider if not resolved after 2 treatments Repeat BS in 1 hour, retime for 1 hour after blood sugar greater than 70 mg/dL glucose chew tab 16 g 16 g Every 15 min PRN, oral, low blood glucose (specify value in prn comments), 41-69 mg/dL, Starting on Tue06/24/25 at 0229, For Patients who can take oral AND blood glucose 41-69 mg/dL Give 4 Tabs every 15 minutes. Recheck blood glucose every 15 minutes and repeat 15 grams of carbohydrates until blood glucose is above 70 mg/dL. Give Meal or Snack Call Provider if not resolved after 3 treatments Repeat BS in 1 hour, retime for 1 hour after blood sugar greater than 70 mg/dL heparin bolus from bag 2,360 Units 2,360 Units Every 6 hours PRN (40 Units/kg 59 kg), intravenous, aPTT 30-44, Starting on Tue06/24/25 at 0443, PRN Bolus Bolus from Bag 06/24/2025 10:47 PM EDT 2,360 Units Bolus from Bag 06/24/2025 7:43 AM EDT 2,360 Units heparin bolus from bag 3,540 Units 3,540 Units Once (60 Units/kg 59 kg), intravenous, On Tue06/23/25 at 2300, For 1 dose, Initial bolus Bolus from Bag 06/24/2025 12:46 AM EDT 3,540 Units heparin infusion 25,000 units in sodium chloride 0.45% (NS) 250 mL (100 units/mL) 2-24 Units/kg/hr 59 kg Titrated (1.18-14.16 mL/hr, rounded to 1.2-14.2 mL/hr), intravenous, Starting on Tue06/23/25 at 2300 New Bag 06/24/2025 11:02 PM EDT 16 Units/kg/hr 9.4 mL/hr Rate/Dose Change 06/24/2025 11:00 PM EDT 16 Units/kg/hr 9. 4 mL/hr New Bag 06/24/2025 7:39 AM EDT 2 Units/kg/hr 1.2 mL/hr heparin infusion 25,000 units in sodium chloride 0.45% (NS) 250 mL (100 units/mL) 2-24 Units/kg/hr 60 kg Titrated (1.2-14.4 mL/hr), intravenous, Starting on Tue06/25/25 at 1030, On hold since Tue06/25/2025 at 1957 until manually unheld New Bag 06/25/2025 7:19 PM EDT 14 Units/kg/hr 8.4 mL/hr Restarted 06/25/2025 10:45 AM EDT 16 Units/kg/hr 9.6 mL/h r hydrALAZINE (APRESOLINE) injection 20 mg 20 mg 3 times daily, intravenous, First dose on Tue06/23/25 at 2100, Hold if SBP < 100 mmHg, DBP < 50 mmHg, or patient is on pressor. Look-alike/Sound-alike medication Given 06/28/2025 11:18 AM EDT 20 mg Given 06/27/2025 9:03 AM EDT 20 mg Given 06/26/2025 8:35 PM EDT 20 mg hydrALAZINE (APRESOLINE) tablet 75 mg 75 mg 4 times daily, oral, First dose on Tue06/24/25 at 2130, Antihypertensive - Check BP - Check Pulse Look-alike/Sound-alike medication Given 06/29/2025 8:23 AM EDT 75 mg Given 06/28/2025 8:29 PM EDT 75 mg Given 06/28/2025 6:00 PM EDT 75 mg insulin lispro (HUMALOG, ADMELOG) injection 0-12 Units 0-12 Units 4 times daily (before meals and nightly), subcutaneous, First dose on Tue06/24/25 at 0730, If Blood Sugar is less than 180 beteween [id number], DO NOT give corrective insulin unless otherwise ordered. Corrective Scale B 0 units for fingerstick blood glucose LESS than 140 mg/dL 2 units subcutaneously once for fingerstick blood glucose [140] - [180] mg/dL 4 units subcutaneously once for fingerstick blood glucose [181] - [220] mg/dL 6 units subcutaneously once for fingerstick blood glucose [221] - [260] mg/dL 8 units subcutaneously once for fingerstick blood glucose [261] - [300] mg/dL 10 units subcutaneously once for fingerstick blood glucose [301] - [350] mg/dL 12 units subcutaneously once for fingerstick blood glucose [351] - [400] mg/dL Notify provider of glucose levels LESS than [70] and GREATER than [400] Given 06/27/2025 6:39 AM EDT 4 Unit s Left Arm Given 06/26/2025 6:32 AM EDT 2 Units Le ft Arm ipratropium-albuteroL (DUO-NEB) 0.5 mg-3 mg(2.5 mg base)/3 mL nebulizer solution 3 mL 3 mL Every 6 hours PRN, nebulization, wheezing, Starting on 06/23/25 at 1842, RESPIRATORY THERAPY TREATMENT Protect from Light, What is the respiratory therapy Modality? Small volume Nebulization isosorbide mononitrate (IMDUR) 24 hr tablet 120 mg 120 mg Daily, oral, First dose on Tue06/24/25 at 2130, * DO NOT CRUSH THIS DOSAGE FORM * Given 06/29/2025 8:23 AM EDT 1 20 mg Given 06/28/2025 11:18 AM EDT 120 mg Given 06/27/2025 9:02 AM EDT 120 mg levothyroxine (SYNTHROID) tablet 88 mcg 88 mcg Daily (0600), oral, First dose on Tue06/24/25 at 0600, ADMINISTER ON AN EMPTY STOMACH Given 06/29/2025 4:18 AM EDT 88 mcg Given 06/28/2025 5:58 AM EDT 88 mcg Given 06/27/2025 6:39 AM EDT 88 mcg LORazepam (ATIVAN) tablet 0.5 mg 0.5 mg Every 8 hours PRN, oral, anxiety, Starting on 06/23/25 at 1851 Given 06/28/2025 8:39 PM EDT 0.5 mg Given 06/28/2025 9:39 AM EDT 0.5 mg Given 06/27/2025 9:02 AM EDT 0.5 mg magnesium sulfate IVPB 2 g in sterile water 50 mL (premix) at 25 mL/hr, Administer over 120 Minutes, intravenous, Daily as needed, for magnesium level 1.3 to 1.7 mg/dL, Starting on Tue06/24/25 at 0212, If magnesium is replaced per protocol order, recheck 1 hour after replacement and the next morning. magnesium sulfate IVPB 2 g in sterile water 50 mL (premix) at 25 mL/hr, Administer over 120 Minutes, intravenous, 2 times daily PRN, for magnesium level less than 1.3 mg/dL, Starting on 06/24/25 at 0212, Total dose of 4 g for each low magnesium result. If magnesium is replaced per protocol order, recheck 1 hour after replacement and the next morning. melatonin tablet 5 mg 5 mg Every Night PRN, oral, insomnia, Starting on 06/24/25 at 0213 Given 06/26/2025 8:33 PM EDT 5 mg Given 06/24/2025 8:30 PM EDT 5 mg morphine injection 2 mg 2 mg Every 4 hours PRN, intravenous, severe pain (7-10), Starting on 06/24/25 at 0220, Administer this medication for a pain scale of 7-10 SEVERE Morphine Inj Adiminister PO formulation first unless patient is unalble to take or tolerate PO administration. naloxone (NARCAN) injection 0.2 mg 0.2 mg Every 2 min PRN, intravenous, opioid reversal, respiratory depression, Starting on 06/23/25 at 1851, Give for respiratory rate less than 10 breaths/min or if patient is difficult to arouse. Max dose = 10 mg. Call provider. nitroglycerin (NITROSTAT) tablet 0.4 mg 0.4 mg Every 5 min PRN, sublingual, chest pain, Starting on 06/24/25 at 0223, For 3 doses, One tablet every 5 minutes for maximum of 3 doses in 15 minutes; Contact physician after the first dose. * DO NOT CRUSH THIS DOSAGE FORM * ondansetron (ZOFRAN) injection 4 mg 4 mg Every 8 hours PRN, intravenous, nausea, vomiting, Starting on Tue06/24/25 at 0213, Give IV if patient is unable to take orally. 1st line If inadequate response within 60 minutes, proceed to next-line agent for same PRN reason or contact provider if no further options ordered. For IV push, give over 2 - 5 minutes. ondansetron (ZOFRAN-ODT) disintegrating tablet 4 mg 4 mg Every 8 hours PRN, oral, nausea, vomiting, Starting on Tue06/24/25 at 0213, 1st line. If inadequate response within 60 minutes, proceed to next-line agent for same PRN reason or contact provider if no further options ordered. oxyCODONE (ROXICODONE) immediate release tablet 10 mg 10 mg Every 4 hours PRN, oral, moderate pain (4-6), Starting on Tue06/23/25 at 1925, This medication is to be administered for a pain scale of 4-6 MODERATE Oxycodone Give only if inadequate response (less than 50% reduction in pain score) 60 minutes after administration of 1st line analgesics + adjuvants (if ordered). Look-alike/Sound-alike medication Given 06/28/2025 8:29 PM EDT 10 mg Given 06/28/2025 9:39 AM EDT 10 mg Given 06/27/2025 9:32 PM EDT 10 mg pantoprazole (PROTONIX) EC tablet 40 mg 40 mg Daily, oral, First dose on Tue06/23/25 at 2100, * DO NOT CRUSH THIS DOSAGE FORM * Given 06/29/2025 8:23 AM EDT 4 0 mg Given 06/28/2025 11:18 AM EDT 40 mg Given 06/27/2025 9:02 AM EDT 40 mg perflutren lipid microspheres (DEFINITY) injection 1.1 mg/mL IMG once as needed, Starting on Tue06/24/25 at 0848, Intra-op Given 06/24/2025 8:48 AM EDT 1.1 mLs sodium chloride 0.9 % infusion 20 mL/hr Once, intravenous, On Tue06/25/25 at 0900, For 1 dose, Used to prep and flush blood tubing before and in between units of blood. New Bag 06/25/2025 11:20 AM EDT 20 mL/hr 20 mL/hr sodium chloride 0.9 % infusion 20 mL/hr Once, intravenous, On Joellen 06/27/25 at 1030, For 1 dose, Used to prep and flush blood tubing before and in between units of blood. New Bag 06/27/2025 11:20 AM EDT 20 mL/hr 20 mL/hr sodium chloride 0.9% (NS) bolus 250 mL Daily as needed, intravenous, Administer over 60 Minutes, SBP less than dialysis Target, Starting on 06/24/25 at 1105, Administer during dialysis if SBP less than dialysis target. sodium chloride 0.9% (NS) bolus 250 mL Daily as needed, intravenous, Administer over 60 Minutes, SBP less than dialysis Target, Starting on Tue06/26/25 at 0800, Administer during dialysis if SBP less than dialysis target. sodium chloride 0.9% (NS) bolus 250 mL Daily as needed, intravenous, Administer over 60 Minutes, SBP less than dialysis Target, Starting on Tue06/28/25 at 0934, Administer during dialysis if SBP less than dialysis target. sodium chloride flush 10 mL 10 mL As needed, intravenous, line care, Starting on 06/23/25 at 1848, Every 8 hours and PRN to flush documented in this encounter Active and Recently Administered Medications Times are shown in EDT. Scheduled Medication Order 06/27/2025 06/28/2025 06/29/2025 acetaZOLAMIDE (DIAMOX) tablet 250 mg 250 mg 2 times daily, oral, First dose on Tue06/24/25 at 2130, Look-alike/Sound-alike medication 0902 (Given - Provider: Kylah Munguia RN)2127 (Given - Provider: Garrison Harris RN) 113 (Given - Provider: Paloma Sawyer RN)2031 (Given - Provider: Edre Desai RN) 0823 (Given - Provider: Jasvir Vines LPN) aspirin EC tablet 81 mg 81 mg Daily, oral, First dose on Tue06/24/25 at 0900, * DO NOT CRUSH THIS DOSAGE FORM * 0902 (Given - Provider: Kylah Munguia RN) 1131 (Given - Provider: Paloma Sawyer RN) 0826 (Given - Provider: Jasvir Vines LPN) atorvastatin (LIPITOR) tablet 40 mg 40 mg Every Night, oral, First dose on Tue06/24/25 at 2100 2122 (Given - Provider: Garrison Harris, CHAO) 2029 (Given - Provider: Eder Desai, RN) budesonide (PULMICORT) nebulizer suspension 0.5 mg 0.5 mg 2 times daily (RT), nebulization, First dose on Tue06/23/25 at 2000, *RESPIRATORY THERAPY TREATMENT*, What is the respiratory therapy Modality? Small volume Nebulization 0843 (Not Given - Provider: Neal Calles, ROLL HAULER - Reason: Patient/family refused)2100 (Not Given - Provider: Azeem Chauhan, COURT OPERATIONS CLERK - Reason: Patient/family refused) 08 (Not Given - Provider: Karmen Gabriel, ROLL HAULER - Reason: Patient/family refused - Comment: patient stated only medicine i want is my ativan and pain medication. no breathing treatment.)2113 (Given - Provider: Anthony Thorpe, COURT OPERATIONS CLERK) 08 (Not Given - Provider: Corinne Olsen, ROLL HAULER - Reason: Patient/family refused - Comment: said no to tx, was trying to sleep) carvediloL (COREG) tablet 12.5 mg 12.5 mg 2 times daily with breakfast and dinner, oral, First dose on Tue06/23/25 at 2000, Hold for systolic BP < 90 mmHg or for HR < 50 BPM 0902 (Given - Provider: Kylah Munguia RN)1717 (Given - Provider: Kylah Munguia RN) 1117 (Given - Provider: Paloma Sawyer RN)1800 (Given - Provider: Paloma Sawyer RN) 0824 (Given - Provider: Jasvir Vines LPN) doxazosin (CARDURA) tablet 2 mg 2 mg 2 times daily, oral, First dose on Tue06/24/25 at 2130 0902 (Given - Provider: Kylah Munguia RN)2123 (Given - Provider: Garrison Harris RN) 111 (Given - Provider: Paloma Sawyer RN)2029 (Given - Provider: Eder Desai RN) 0823 (Given - Provider: Jasvir Vines LPN) hydrALAZINE (APRESOLINE) injection 20 mg (CANCELED) 20 mg 3 times daily, intravenous, First dose on Tue06/23/25 at 2100, Hold if SBP < 100 mmHg, DBP < 50 mmHg, or patient is on pressor. Look-alike/Sound-alike medication 0903 (Given - Provider: Kylah Munguia RN)1531 (Not Given - Provider: Kylah Munguia RN - Reason: Order parameters not met - Comment: systolic <50)2103 (Not Given - Provider: Garrison Harris RN - Reason: Order parameters not met) 1118 (Given - Provider: Paloma Sawyer RN) hydrALAZINE (APRESOLINE) tablet 75 mg 75 mg 4 times daily, oral, First dose on Tue06/24/25 at 2130, Antihypertensive - Check BP - Check Pulse Look-alike/Sound-alike medication 0902 (Given - Provider: Kylah Munguia RN)1357 (Given - Provider: Kylah Munguia RN)1717 (Given - Provider: Kylah Munguia RN)2124 (Not Given - Provider: Garrison Harris RN - Reason: Order parameters not met) 1117 (Given - Provider: Paloma Sawyer, CHAO)1300 (Not Given - Provider: Paloma Sawyer RN - Reason: Patient not available)1800 (Given - Provider: Paloma Sawyer RN)202 (Given - Provider: Eder Desai RN) 0823 (Given - Provider: Jasvir Vines LPN)1542 (Not Given - Provider: Jasvri Vines LPN - Reason: Other (with Comment)) insulin lispro (HUMALOG, ADMELOG) injection 0-12 Units 0-12 Units 4 times daily (before meals and nightly), subcutaneous, First dose on Tue06/24/25 at 0730, If Blood Sugar is less than 180 beteween [id number], DO NOT give corrective insulin unless otherwise ordered. Corrective Scale B 0 units for fingerstick blood glucose LESS than 140 mg/dL 2 units subcutaneously once for fingerstick blood glucose [140] - [180] mg/dL 4 units subcutaneously once for fingerstick blood glucose [181] - [220] mg/dL 6 units subcutaneously once for fingerstick blood glucose [221] - [260] mg/dL 8 units subcutaneously once for fingerstick blood glucose [261] - [300] mg/dL 10 units subcutaneously once for fingerstick blood glucose [301] - [350] mg/dL 12 units subcutaneously once for fingerstick blood glucose [351] - [400] mg/dL Notify provider of glucose levels LESS than [70] and GREATER than [400] 0639 (Given - Provider: Citlalli Wood RN)1137 (Not Given - Provider: Kylah Munguia RN - Reason: Patient/family refused)1624 (Not Given - Provider: Kylah Munguia RN - Reason: Patient/family refused)2104 (Not Given - Provider: Garrison Harris RN - Reason: Order parameters not met) 0637 (Not Given - Provider: Garrison Harris RN - Reason: Order parameters not met)1156 (Not Given - Provider: Paloma Sawyer RN - Reason: Order parameters not met)1630 (Not Given - Provider: Paloma Sawyer RN - Reason: Patient not available)2030 (Not Given - Provider: Eder Desai RN - Reason: Order parameters not met) 0509 (Not Given - Provider: Eder Desai RN - Reason: Order parameters not met)1052 (Not Given - Provider: Jasvir Vines LPN - Reason: Patient/family refused) isosorbide mononitrate (IMDUR) 24 hr tablet 120 mg 120 mg Daily, oral, First dose on Tue06/24/25 at 2130, * DO NOT CRUSH THIS DOSAGE FORM * 0902 (Given - Provider: Kylah Munguia RN) 1118 (Given - Provider: Paloma Sawyer RN) 0823 (Given - Provider: Jasvir Vines LPN) levothyroxine (SYNTHROID) tablet 88 mcg 88 mcg Daily (0600), oral, First dose on Tue06/24/25 at 0600, ADMINISTER ON AN EMPTY STOMACH 0639 (Given - Provider: Citlalli Wood, CHAO) 0558 (Given - Provider: Garrison Harris, RN) 0418 (Given - Provider: Eder Desai, RN) pantoprazole (PROTONIX) EC tablet 40 mg 40 mg Daily, oral, First dose on Tue06/23/25 at 2100, * DO NOT CRUSH THIS DOSAGE FORM * 0902 (Given - Provider: Kylah Munguia, RN) 1118 (Given - Provider: Paloma Sawyer, CHAO) 0823 (Given - Provider: Jasvir Vines LPN) sodium chloride 0.9 % infusion (COMPLETED)(Linked Group 1) 20 mL/hr Once, intravenous, On [place] 06/27/25 at 1030, For 1 dose, Used to prep and flush blood tubing before and in between units of blood. 1120 (New Bag - Provider: Kylah Munguia, CHAO) PRN Medication Order 06/27/2025 06/28/2025 06/29/2025 acetaminophen (TYLENOL) tablet 1,000 mg 1,000 mg Every 6 hours PRN, oral, fever greater than or equal to 38C, Starting on Tue06/23/25 at 1851, Recommended maximum dose of acetaminophen is 4000 mg from all sources in 24 hours albumin human 25 % IV 25 g 25 g As needed, intravenous, during dialysis once if SBP less than dialysis target, Starting on Tue06/28/25 at 0934, For 24 hours, Albumin is restricted for approved indications only and limited to 24 hr duration, with exception of the last indication restricted to 48 hrs. If albumin therapy is needed beyond 24 hrs a new order should be placed by the provider. Choose an indication. Other Indication, Please enter appropriate Other Indication: hypotension cloNIDine (CATAPRES) tablet 0.1 mg 0.1 mg Every 8 hours PRN, oral, high blood pressure (specify), Sustained SBP greater than 170 or sustained DBP greater than 100, Starting on Tue06/23/25 at 2322, Look-alike/Sound-alike medication dextrose 50% (D50W) injection 25 g 25 g Every 15 min PRN, intravenous, low blood glucose (specify value in prn comments), less than 41 mg/dL or 41-69 mg/dL and unable to take PO, Starting on 06/24/25 at 0229, Repeat blood glucose every 15 minutes until blood glucose greater than 70 mg/dL. Call Provider if not resolved after 2 treatments Repeat BS in 1 hour, retime for 1 hour after blood sugar greater than 70 mg/dL If less than 41: Repeat Finger stick within 5 minutes with same machine Send serum glucose level: Do not wait on lab to treat diphenhydrAMINE (BENADRYL) capsule 25 mg 25 mg Every Night PRN, oral, itching, sleep, Starting on Tue06/23/25 at 185 glucagon injection 1 mg 1 mg Every 15 min PRN, intraMUSCULAR, low blood glucose (specify value in prn comments), For Patients without IV access and blood glucose 41-69 mg/dL AND unable to take PO OR Less than 41 mg/dL, Starting on Tue06/24/25 at 022, Caution: glucagon . Roll patient on their side when administering to prevent aspiration. Call Provider if not resolved after 2 treatments Repeat BS in 1 hour, retime for 1 hour after blood sugar greater than 70 mg/dL glucose chew tab 16 g 16 g Every 15 min PRN, oral, low blood glucose (specify value in prn comments), 41-69 mg/dL, Starting on Tue06/24/25 at 0229, For Patients who can take oral AND blood glucose 41-69 mg/dL Give 4 Tabs every 15 minutes. Recheck blood glucose every 15 minutes and repeat 15 grams of carbohydrates until blood glucose is above 70 mg/dL. Give Meal or Snack Call Provider if not resolved after 3 treatments Repeat BS in 1 hour, retime for 1 hour after blood sugar greater than 70 mg/dL ipratropium-albuteroL (DUO-NEB) 0.5 mg-3 mg(2.5 mg base)/3 mL nebulizer solution 3 mL 3 mL Every 6 hours PRN, nebulization, wheezing, Starting on Tue06/23/25 at 1842, RESPIRATORY THERAPY TREATMENT Protect from Light, What is the respiratory therapy Modality? Small volume Nebulization LORazepam (ATIVAN) tablet 0.5 mg 0.5 mg Every 8 hours PRN, oral, anxiety, Starting on Tue06/23/25 at 1851 0902 (Given - Provider: Kylah Munguia RN) 0939 (Given - Provider: Sobia Foster RN)2038 (Given - Provider: Eder Desai RN) magnesium sulfate IVPB 2 g in sterile water 50 mL (premix) at 25 mL/hr, Administer over 120 Minutes, intravenous, Daily as needed, for magnesium level 1.3 to 1.7 mg/dL, Starting on Tue06/24/25 at 0212, If magnesium is replaced per protocol order, recheck 1 hour after replacement and the next morning. magnesium sulfate IVPB 2 g in sterile water 50 mL (premix) at 25 mL/hr, Administer over 120 Minutes, intravenous, 2 times daily PRN, for magnesium level less than 1.3 mg/dL, Starting on Tue06/24/25 at 0212, Total dose of 4 g for each low magnesium result. If magnesium is replaced per protocol order, recheck 1 hour after replacement and the next morning. melatonin tablet 5 mg 5 mg Every Night PRN, oral, insomnia, Starting on Tue06/24/25 at 0213 morphine injection 2 mg 2 mg Every 4 hours PRN, intravenous, severe pain (7-10), Starting on Tue06/24/25 at 0220, Administer this medication for a pain scale of 7-10 SEVERE Morphine Inj Adiminister PO formulation first unless patient is unalble to take or tolerate PO administration. naloxone (NARCAN) injection 0.2 mg 0.2 mg Every 2 min PRN, intravenous, opioid reversal, respiratory depression, Starting on Tue06/23/25 at 1851, Give for respiratory rate less than 10 breaths/min or if patient is difficult to arouse. Max dose = 10 mg. Call provider. nitroglycerin (NITROSTAT) tablet 0.4 mg 0.4 mg Every 5 min PRN, sublingual, chest pain, Starting on Tue06/24/25 at 0223, For 3 doses, One tablet every 5 minutes for maximum of 3 doses in 15 minutes; Contact physician after the first dose. * DO NOT CRUSH THIS DOSAGE FORM * ondansetron (ZOFRAN) injection 4 mg(Linked Group 2) 4 mg Every 8 hours PRN, intravenous, nausea, vomiting, Starting on Tue06/24/25 at 0213, Give IV if patient is unable to take orally. 1st line If inadequate response within 60 minutes, proceed to next-line agent for same PRN reason or contact provider if no further options ordered. For IV push, give over 2 - 5 minutes. ondansetron (ZOFRAN-ODT) disintegrating tablet 4 mg(Linked Group 2) 4 mg Every 8 hours PRN, oral, nausea, vomiting, Starting on Tue06/24/25 at 0213, 1st line. If inadequate response within 60 minutes, proceed to next-line agent for same PRN reason or contact provider if no further options ordered. oxyCODONE (ROXICODONE) immediate release tablet 10 mg 10 mg Every 4 hours PRN, oral, moderate pain (4-6), Starting on Tue06/23/25 at 1925, This medication is to be administered for a pain scale of 4-6 MODERATE Oxycodone Give only if inadequate response (less than 50% reduction in pain score) 60 minutes after administration of 1st line analgesics + adjuvants (if ordered). Look-alike/Sound-alike medication 0902 (Given - Provider: Kylah Munguia, CHAO)1357 (Given - Provider: Kylah Munguia, CHAO)2132 (Given - Provider: Garrison Harris RN) 0939 (Given - Provider: Sobia Foster, CHAO)2028 (Given - Provider: Eder Desai, RN) sodium chloride 0.9% (NS) bolus 250 mL Daily as needed, intravenous, Administer over 60 Minutes, SBP less than dialysis Target, Starting on Tue06/24/25 at 1105, Administer during dialysis if SBP less than dialysis target. sodium chloride 0.9% (NS) bolus 250 mL Daily as needed, intravenous, Administer over 60 Minutes, SBP less than dialysis Target, Starting on Tue06/26/25 at 0800, Administer during dialysis if SBP less than dialysis target. sodium chloride 0.9% (NS) bolus 250 mL Daily as needed, intravenous, Administer over 60 Minutes, SBP less than dialysis Target, Starting on Tue06/28/25 at 0934, Administer during dialysis if SBP less than dialysis target. sodium chloride flush 10 mL(Linked Group 3) 10 mL As needed, intravenous, line care, Starting on Tue06/23/25 at 1848, Every 8 hours and PRN to flush Linked Groups Order Group 1: Prepare RBC: 1 Units (COMPLETED) Routine, Prepare 1 Units And Transfuse RBC: 1 Units (COMPLETED) Routine, Transfuse 1 Units And sodium chloride 0.9 % infusion (COMPLETED)Jump to med 20 mL/hr Once, intravenous, On Jo[place] 06/27/25 at 1030, For 1 dose, Used to prep and flush blood tubing before and in between units of blood. Group 2: ondansetron (ZOFRAN-ODT) disintegrating tablet 4 mgJump to med 4 mg Every 8 hours PRN, oral, nausea, vomiting, Starting on 06/24/25 at 0213, 1st line. If inadequate response within 60 minutes, proceed to next-line agent for same PRN reason or contact provider if no further options ordered. Or ondansetron (ZOFRAN) injection 4 mgJump to med 4 mg Every 8 hours PRN, intravenous, nausea, vomiting, Starting on 06/24/25 at 0213, Give IV if patient is unable to take orally. 1st line If inadequate response within 60 minutes, proceed to next-line agent for same PRN reason or contact provider if no further options ordered. For IV push, give over 2 - 5 minutes. Group 3: Insert Peripheral IV (CANCELED) STAT, Once, On 06/23/25 at 1849, For 1 occurrence And Saline Lock IV (CANCELED) Routine, Once, On [place] 06/23/25 at 1849, For 1 occurrence And sodium chloride flush 10 mLJump to med 10 mL As needed, intravenous, line care, Starting on [place] 06/23/25 at 1848, Every 8 hours and PRN to flush documented in this encounter Care Teams Lime Trimmer Relationship Specialty Start Date End Date Osmani Becker MD [address] [place] [id number] PCP - General General Internal Medicine 02/02/24 Mindy Mckeon MD [address] , [facility] [address] [place] [address] Interventional Cardiology 06/27/25 documented as of this encounter
[2025-07-25] VITALS (11 sets, daily range): BP systolic 105–168; BP diastolic 33–118; PULSE 63–80; RESP 14–22; TEMP 36.6–36.8; O2SAT 90–99; BMI 19.7
--- OUTSIDE RECORDS SUMMARY | 2025-07-25 05:46 | XMS_ITS | Encounter Summary ---
Author Organization [facility] Address [address] [place] [address] Care Team Providers Care Museum Assistant Name Role Phone Osmani Becker MD Primary Care Provider [phone] Rosemarie Riley APRN Primary Care Provider [phone] Haydee Mccloud Unavailable Unavailable Baylee Gracia RN Unavailable Unavailable Encounter Details Date Type Department Care Team (Late st Contact Info) Description 02/20/2025 Orders Only External Location [address] [place] [address] Provider, External Social History Tobacco Use Types [...] first t jacqueline in the morning (EYE-PEDIATRIC HOSPITALIST) to steady your nerves or to get [...] Upcoming Encounters Date Type Department Care Team ([facility] st Contact Info) Description 08/20/2025 12:00 PM EST Office Visit [facility] [place] [address], [address] [place] [address] Kaiden Harvey MD [address] [place] [address] 11/06/2025 9:15 AM EST Office Visit [facility] [address], [address] [place] [address] Joanna Bartlett MD [address] [place] [address] documented as of this encounter Procedures Procedure [...] documented as of this encounter Care Teams Museum Assistant Relationship Specialty Start Date End Date Osmani Becker MD [address] [facility] [facility] [facility] [address] [place] [address] PCP - General 01/30/21 03/03/25 Rosemarie Riley APRN [address] [place] [address] PCP - General 04/02/25 Haydee Mccloud Professor Of Journalism Boat Hoist Operator 06/03/25 06/25/25 Baylee Gracia, RN Registered Nurse 06/12/25 documented as of this encounter
--- OUTSIDE RECORDS SUMMARY | 2025-07-25 05:46 | XMS_ITS | Encounter Summary ---
Author Organization [facility] Address [address] [place] [address] Care Team Providers Care Grab Hooker Name Role Phone RileyRosemarie beach Shanel WILSON Primary Care Provider [phone] Baylee Gracia RN Unavailable Unavailable Reason for Visit * Reason Comments HRCM Encounter Details Date Type Department Care Team ([facility] Contact Info) Description 07/10/2025 Patient Outreach [facility] [address] [facility] [address], [address] [place] [address] Baylee Gracia, RN HRCM Social [...] and Family Not on file 06/25/2024 Attends [employer] Services Not on file 06/25 Active Member [...] any time in the past 12 m [facility], were you homeless or living in a senior living (including now)? No 06/03/2025 [facility] Utilities Answer Date Recorded In the [...] drink first t jacqueline in the morning (EYE-ROTARY HELPER) to steady your nerves or to get [...] Description 08/20/2025 12:00 PM EST Office Visit [facility] [place] [address] [facility], [address] [place] [address] Kaiden Harvey MD [address] [facility] [address] [place] [address] 11/06/2025 9:15 AM EST Office Visit [facility] [address] [facility], [address] [place] [address] Joanna Bartlett MD [address] [facility] [address] [place] [address] documented as of this encounter Goals Goal [...] documented as of this encounter Care Teams Grab Hooker Relationship Specialty Start Date End Date Rosemarie Riley APRN [address] [place] [address] PCP - General 04/02/25 Baylee Gracia RN Registered Nurse 06/12/25 documented as of this encounter
--- OUTSIDE RECORDS SUMMARY | 2025-07-25 05:46 | XMS_ITS | Encounter Summary ---
Author Organization [facility] Address [address] [place] [address] Care Team Providers Care Desk Clerks Supervisor Name Role Phone Osmani Becker MD Primary Care Provider [phone] Rosemarie Riley APRN Primary Care Provider [phone] Haydee Mccloud Unavailable Unavailable Baylee Gracia RN Unavailable Unavailable Encounter Details Date Type Department Care Team (Late st Contact Info) Description 02/21/2025 Orders Only External Location [address] [place] [address] Provider, External Social History Tobacco Use Types [...] and Family Not on file 06/25/2024 Attends Mormonism Services Not on file 06/25 Active Member [...] place to sleep or slept in a fdc (including now)? No 06/25/2024 CAGE ASSESSMENT Answer [...] drink first t jacqueline in the morning (EYE-PSYCHOLOGICAL OPERATIONS SPECIALIST) to steady your nerves or to [...] Upcoming Encounters Date Type Department Care Team ([facility] st Contact Info) Description 08/20/2025 12:00 PM EST Office Visit [facility] [place] [address], [address] [place] [address] Kaiden Harvey MD [address] [place] [address] 11/06/2025 9:15 AM EST Office Visit [facility] [address], [address] [place] [address] Joanna Bartlett MD [address] [place] [address] documented as of this encounter [...] documented as of this encounter Care Teams Desk Clerks Supervisor Relationship Specialty Start Date End Date Osmani Becker MD [address] [facility] [address] [place] [address] PCP - General 01/30/21 03/03/25 Rosemarie Riley APRN [address] [place] [address] [place] [address] PCP - General 04/02/25 Haydee Mccloud Coater Associate Customer Data Technician 06/03/25 06/25/25 Baylee Gracia, RN Registered Nurse 06/12/25 documented as of this encounter
--- OUTSIDE RECORDS SUMMARY | 2025-07-25 05:46 | XMS_ITS ---
Author Organization [facility] Address [address] [place] [address] Care Team Providers Care Maintenance Mechanic Name Role Phone Rosemarie Riley APRN Primary Care Provider [phone] Baylee Gracia RN Unavailable Unavailable Transitional Care Management Status:Closed (Closed) Start date:06/12/2025 Enrollment date:06/17/2025 Enrollment reason:Identified using hospital discharge data End date:07/12/2025 Close reason:Patient graduated Overview This episode type is for outpatient care managers enrolling patients in the CMS Transitional Care Management program. Continued Care and Services Coordination
--- OUTSIDE RECORDS SUMMARY | 2025-07-25 05:46 | XMS_ITS | Encounter Summary ---
Author Organization [facility] Address [address] [place] [address] Care Team Providers Care Timber Treatment Plant Operator Name Role Phone Osmani Becker MD Primary Care Provider [phone] Rosemarie Riley APRN Primary Care Provider [phone] Haydee Mccloud Unavailable Unavailable Baylee Gracia RN Unavailable Unavailable Encounter Details Date Type Department Care Team (Late st Contact Info) Description 12/24/2024 Orders Only External Location [address] [place] [address] Provider, External Social History Tobacco Use Types [...] drink first t jacqueline in the morning (EYE-RADIUS GRINDER) to steady your nerves or to [...] Upcoming Encounters Date Type Department Care Team ([facility] st Contact Info) Description 08/20/2025 12:00 PM EST Office Visit [facility] [place] [address], [address] [place] [address] Kaiden Harvey MD [address] [place] [address] 11/06/2025 9:15 AM EST Office Visit [facility] [address], [address] [place] [address] Joanna Bartlett MD [address] [place] [address] documented as of this encounter Procedures Procedure Name Priority Date/Time Associated Diagnosis Comments CT OUTSIDE IMAGES 12/24/2024 4:08 PM EDT documented in this encounter Results * CT OUTSIDE IMAGES (12/24/2024 4:08 PM EDT) Anatomical Region Laterality Modality Computed Tomogra phy 12/24/2024 4:08 PM EDT External Provider IMG CT PROCEDURES Final Result documented in this encounter Visit Diagnoses Not on filedocumented in this encounter Additional Health Concerns Infection Onset Date Last Indicated Resolved Time COVID-19 Rule-Out 06/01/2025 06/01/2025 06/01/2025 7:59 PM EDT Assessment Noted Time A Body Mass Index follow-up plan has been documented for the patient 06/30/2024 1:58 PM EDT documented as of this encounter Care Teams Timber Treatment Plant Operator Relationship Specialty Start Date End Date Osmani Becker MD [address] [facility] [address] [place] [address] PCP - General 01/30/21 03/03/25 Rosemarie Riley APRN [address] [place] [address] PCP - General 04/02/25 Haydee Mccloud Spooling Supervisor State Federal Relations Deputy Director 06/03/25 06/25/25 Baylee Gracia, RN Registered Nurse 06/12/25 documented as of this encounter
--- OUTSIDE RECORDS SUMMARY | 2025-07-25 05:46 | XMS_ITS ---
Author Organization [facility] Address [address] [place] [address] Care Team Providers Care Mobile Designer Name Role Phone Rosemarie Riley APRN Primary Care Provider [phone] Baylee Gracia RN Unavailable Unavailable LINK Program Status:Closed (Closed) Start date:06/03/2025 Enrollment reason:Identified using hospital discharge data End date:06/25/2025 Close reason:Not Eligible Overview This episode type is for outpatient care managers enrolling patients in the CMS LINK program. Continued Care and Services Coordination
--- OUTSIDE RECORDS SUMMARY | 2025-07-25 05:46 | XMS_ITS | Clinical Summary ---
Author Organization [facility] Address [address] [place] [address] Care Team Providers Care Travel Rn Name Role Phone RosemaryRosemarie Shanel WILSON Primary Care Provider [phone] Baylee Gracia RN Unavailable Unavailable Allergies Active [...] Encounters Date Type Department Care Team Description 07/22/2025 Lab Requisition [facility] Lab [address] [place] [address] Kyara Gonzales PA Encounter for general adult medical examination without abnormal findings 07/16/2025 Patient Outreach [address], [address] [place] [address] Baylee Gracia, RN HRCM 07/10/2025 Patient Outreach [address], [address] [place] [address] Baylee Gracia RN HRCM 07/04/2025 Patient Outreach [address], [address] [place] [address] Baylee Gracia, RN [facility] 07/01/2025 Patient Outreach [facility] [address], [address] [place] [address] Baylee Gracia, RN [facility] 06/25/2025 Patient Outreach [facility] [address], [address] [place] [address] Baylee Gracia, RN CM 06/23/2025 Orders Only External Location [address] [place] [id number] Familia Shabazz DO 06/19/2025 Patient Outreach [facility] [address], [address] [address] Baylee Gracia, RN [facility] 06/17/2025 Orders Only [facility] Medicine Virtual Dept. [address] [place] [address] Mayra Rogers MD 06/17/2025 Patient Outreach [facility] [address], [address] [address] Baylee Gracia, RN [facility] 06/17/2025 Patient Outreach [facility] [address], [address] [place] [address] Baylee Gracia, CHAO [facility] 06/13/2025 Patient Outreach [facility] [address], [address] [address] Baylee Gracia, RN [facility] 06/12/2025 Patient Outreach [facility] [address], [address] [place] [address] Baylee Gracia, RN [facility] 06/12/2025 Referral Triage [facility] [address], [address] [address] Baylee Gracia, CHAO 06/10/2025 Travel 06/07/2025 Travel 06/06/2025 Patient Outreach [facility] [address], [address] [place] [address] Haydee Mccloud Link 06/06/2025 Travel 06/04/2025 Travel 06/03/2025 Patient Outreach [facility] [address], [address] [place] [address] Wendie De Leon Link 06/03/2025 Patient Outreach [facility] [address], [address] [place] [address] Haydee Mccloud Link 06/02/2025 Travel 06/01/2025 4:48 PM EDT - 06/10/2025 4:54 PM EDT Hospital Encounter [facility] Inpatient [address] [place] [address] Faiza Nye MD Buckingham, Bradley P, MD Doty, Christopher I, MD Vick, Mayra Aviles MD Acute pulmonary edema (CMS/HCC) [...] 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; History of glaucoma; Chronic congestive heart failure, unspecified heart failure type (CMS/HCC) Discharge Disposition: Home or Self Care 06/01/2025 Travel 05/21/2025 Telephone [facility] [address] [place] [address] Clarice Zhou I, RN 05/15/2025 Telephone [facility] [address] [place] [address] Clarice Zhou I, RN 05/13/2025 Orders Only [facility] Nephrology, Bone & Mineral Metabolism [address] [facility] [address], [address] [place] [phone] Tiny Summers MD Renal mass (Primary Dx) 05/06/2025 1:27 PM EDT - 05/06/2025 8:09 PM EDT Emergency [facility] Emergency Department [address] [place] [address] Sena Navarro MD Renal mass (Primary Dx); ESRD (end stage renal disease) ([facility]) Discharge Disposition: Home or Self Care 05/06/2025 Travel 05/05/2025 4:00 PM EDT - 05/05/2025 6:01 PM EDT Emergency [facility] Emergency Department [address] [place] [address] Neno Elizabeth MD ESRD (end stage renal disease) on dialysis ([facility]) (Primary Dx); Elevated TSH; Hyperphosphatemia Discharge Disposition: [...] time in the past 12 m [facility], were you homeless or living in a alf (including now)? 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 nerves or to get [...] Description 08/20/2025 12:00 PM EST Office Visit [facility] [place] [address] [facility] [address], [address] [place] [address] Kaiden Harvey MD [address] [facility] [facility] [place] [address] 11/06/2025 9:15 AM EST Office Visit [facility] [address], [address] [place] [address] Joanna Bartlett MD [address] [facility] [address] [place] [address] Health Maintenance Due Date Last Done Comments [facility]-Depression Screening 1970 [facility]-Medicare Annual Wellness (AWV) 1970 [facility]-/Child/Adol SDOH Screenings 1970 [id number] Vaccine (#1) 1974 Diabetes: Dental Exam 1979 [...] and care needs No Baylee Gracia RN Procedures Procedure Name Priority Date/Time Associated Diagnosis Comments LACTATE DEHYDROGENASE, PLEURAL FLUID Routine 07/22/2025 10:15 AM EST Encounter for general adult medical examination without abnormal findings GLUCOSE, PLEURAL FLUID STAT 07/22/2025 10:15 AM EST Encounter for general adult medical examination without abnormal findings TOTAL PROTEIN, PLEURAL FLUID STAT 07/22/2025 10:15 AM EST Encounter for general adult medical examination without abnormal findings LACTATE DEHYDROGENASE TOTAL, BODY FLUID (SO) STAT 07/22/2025 10:15 AM EST Encounter for general adult medical examination without abnormal findings XR OUTSIDE IMAGES 06/23/2025 12:11 PM EDT [...] PM EDT ESRD (end stage renal disease) ([facility]) Unspecified complication of cardiac and vascular prosthetic [...] Recently Relevant to Health Maintenance Results * Total Protein, Pleural Fluid (07/22/2025 10:15 AM EST) Total Protein, Fluid 2.5 g/dL 07/22/2025 1:21 PM EST [facility] Pleural Fluid 07/22/2025 10: 15 AM EST 07/22/2025 12:45 PM EST Narrative [facility] - 07/22/2025 1:21 PM EST This test was developed and its performance characteristics determined by [facility]. The U.S. Food and Drug Administration has not approved or cleared this test. However, FDA clearance or approval is not currently required for clinical use. The results are not intended to be used as the sole means for clinical diagnosis or patient management decisions. us [facility]ara [facility] BODY FLUIDS AND STOOLS O RDERABLES Final Result [facility] [address] [place] [address] * Lactate Dehydrogenase Total, Body Fluid (SO) (07/22/2025 10:15 AM EST) Lactate Dehydrogenase Total, Body Fluid 91 U/L 07/24/2025 3:04 AM EST [facility] ([facility]) LDH Fluid Source Pleural fluid 07/24/2025 3:04 AM EST [facility] ([facility]) Pleural Fluid 07/22/2025 10: 15 AM EST 07/22/2025 12:45 PM EST Narrative [facility] ([facility]) - 07/24/2025 3:04 AM EST INTERPRETIVE INFORMATION: Lactate Dehydrogenase Total, Body Fluid For information on body fluid reference ranges and/or interpretive guidance visit [email or web address]/bodyfluids/ This test was developed and its performance characteristics determined by [facility] [facility]. It has not been cleared or approved by the US Food and Drug Administration. This test was performed in a CLIA certified laboratory and is intended for clinical purposes. Performed By: [facility] [address] [place] [address] Furniture Assembler: Rosales Cooper MD, PhD CLIA Number: [id number] [facility] REF LAB BLOOD AND FLUID ORD Final Result [facility] ([facility] [address] [place] [address] * Lactate Dehydrogenase, Pleural Fluid (07/22/2025 10:15 AM EST) LDH, Fluid 98 U/L 07/23/2025 5:28 AM EST [facility] Pleural Fluid 07/22/2025 10: 15 AM EST 07/23/2025 5:00 AM EST Narrative [facility] - 07/23/2025 5:28 AM EST No established reference interval. Results should be interpreted in comparison to the concentration in blood and in conjunction with the clinical context. Pleural fluid LDH and total protein measurements are used for differentiation of exudates and transudates. Light's criteria can be used to identify most pleural exudative effusions if one or more of the following criteria are present: (1) pleural rcbxv-aj-cmaxm protein ratio of >0.5, (2) pleural fyqjm-bd-pnfwi LDH ratio of >0.6, or (3) a pleural fluid LDH activity that is >2/3 the upper limit of a normal serum LDH activity. Light's criteria may misclassify ~25% of transudates as exudates in heart failure. These can be identified by calculating a djakw-ty-egwexry albumin gradient (>1.2 g/dL) and/or a ezvym-bn-uwxcl protein gradient (>3.1 g/dL). Kyara [facility] BODY FLUIDS AND STOOLS O RDERABLES Final Result Performing Organization Address City/[facility]/ZIP Co de Phone Number [facility] [address] [place] [address] * Glucose, body fluid (07/22/2025 10:15 AM EST) Glucose, Fluid 115 mg/dL 07/22/2025 1:21 PM EST [facility] Pleural Fluid 07/22/2025 10: 15 AM EST 07/22/2025 12:45 PM EST Narrative [facility] - 07/22/2025 1:21 PM EST Pleural No established reference interval. Results should be interpreted in comparison to the concentration in blood and in conjunction with the clinical context. Normal pleural fluid glucose is similar to serum concentrations. Pleural fluid transudates and most exudates usually have glucose concentrations of >60 mg/dL. Pleural fluid exudates with glucose concentrations <60 mg/dL have been associated with conditions such as para-pneumonic effusion, tuberculosis, malignancy, empyema, and/or rheumatoid disease. Kyara [facility] BODY FLUIDS AND STOOLS O RDERABLES Final Result Performing Organization Address City/[facility]/ZIP Co de Phone Number [address] [address] * XR OUTSIDE IMAGES (06/23/2025 12:11 PM EDT) Anatomical Region Laterality Modality Radiographic Amira ging 06/23/2025 12:1 1 PM EDT us Familia Shabazz IMG XR PROCEDURES Edited Res ult - Final * (ABNORMAL) CBC and Differential (06/10/2025 4:24 AM EDT) Only the most recent of11 resultswithin the time period is included. WBC Count 7.28 3.70 - 10.30 10*3/uL LAB HEMATOLOGY METHOD 06/10/2025 4:48 AM EDT [facility] RBC Count 3.10(L) 3.90 - 5.20 10*6/uL LAB HEMATOLOGY METHOD 06/10/2025 4:48 AM EDT [facility] HGB 8.1(L) 11.2 - 15.7 g/dL LAB HEMATOLOGY METHOD 06/10/2025 4:48 AM EDT [facility] HCT 29.1(L) 34.0 - 45.0 % LAB HEMATOLOGY METHOD 06/10/2025 4:48 AM EDT [facility] Platelet Count 64(L) 155 - 369 10*3/uL LAB HEMATOLOGY METHOD 06/10/2025 4:48 AM EDT [facility] MCV 94 79 - 98 fL LAB HEMATOLOGY METHOD 06/10/2025 4:48 AM EDT [facility] MCH 26.1 26.0 - 32.0 pg LAB HEMATOLOGY METHOD 06/10/2025 4:48 AM EDT [facility] MCHC 27.8(L) 30.7 - 35.5 g/dL LAB HEMATOLOGY METHOD 06/10/2025 4:48 AM EDT [facility] RDW 16.0(H) 11.5 - 14.5 % LAB HEMATOLOGY METHOD 06/10/2025 4:48 AM EDT [facility] MPV 12.1 8.8 - 12.5 fL LAB HEMATOLOGY METHOD 06/10/2025 4:48 AM EDT [facility] nRBC 0.0 <=0.0 per 100 WBCs LAB HEMATOLOGY METHOD 06/10/2025 4:48 AM EDT [facility] Differential Type Automated LAB HEMATOLOGY METHOD 06/10/2025 4:48 AM EDT [facility] Neutrophils % 79 % LAB HEMATOLOGY METHOD 06/10/2025 4:48 AM EDT [facility] Lymphocytes % 9 % LAB HEMATOLOGY METHOD 06/10/2025 4:48 AM EDT [facility] Monocytes % 7 % LAB HEMATOLOGY METHOD 06/10/2025 4:48 AM EDT [facility] Eosinophils % 3 % LAB HEMATOLOGY METHOD 06/10/2025 4:48 AM EDT [facility] Basophils % 1 % LAB HEMATOLOGY METHOD 06/10/2025 4:48 AM EDT [facility] Immature Granulocytes % 1 % LAB HEMATOLOGY METHOD 06/10/2025 4:48 AM EDT [facility] Neutrophils Absolute 5.88 1.60 - 6.10 10*3/uL LAB HEMATOLOGY METHOD 06/10/2025 4:48 AM EDT [facility] Lymphocytes Absolute 0.65(L) 1.20 - 3.90 10*3/uL LAB HEMATOLOGY METHOD 06/10/2025 4:48 AM EDT [facility] Monocytes Absolute 0.47 0.30 - 0.90 10*3/uL LAB HEMATOLOGY METHOD 06/10/2025 4:48 AM EDT [facility] Eosinophils Absolute 0.20 0.00 - 0.50 10*3/uL LAB HEMATOLOGY METHOD 06/10/2025 4:48 AM EDT [facility] Basophils Absolute 0.04 0.00 - 0.10 10*3/uL LAB HEMATOLOGY METHOD 06/10/2025 4:48 AM EDT [facility] Immature Granulocytes Absolute 0.04 0.00 - 0.06 10*3/uL LAB HEMATOLOGY METHOD 06/10/2025 4:48 AM EDT [facility] Blood Venous blood specimen / Unknown Venipuncture / Unknown 06/10/2025 4:24 AM EDT 06/10/2025 4:42 AM EDT Narrative [facility] - 06/10/2025 4:48 AM EDT Therapeutic decision making should be based on absolute values, rather than percentages. us Faiza Nye MD LAB BLOOD ORDERABLES Final Re sult [facility] [address] [place] [address] * (ABNORMAL) Phosphorus, Plasma (06/10/2025 4:24 AM EDT) Only the most recent of11 resultswithin the time period is included. Phosphorus, Plasma 4.6(H) 2.5 - 4.5 mg/dL 06/10/2025 5:09 AM EDT [facility] Blood Venous blood specimen / Unknown Venipuncture / Unknown 06/10/2025 4:24 AM EDT 06/10/2025 4:40 AM EDT Faiza Nye MD LAB BLOOD ORDERABLES Final Re sult Performing Organization Address [facility] Co de Phone Number [facility] [address] [place] [address] * Magnesium, Plasma (06/10/2025 4:24 AM EDT) Only the most recent of11 resultswithin the time period is included. Magnesium, Plasma 2.1 1.9 - 2.4 mg/dL 06/10/2025 5:09 AM EDT [facility] Blood Venous blood specimen / Unknown Venipuncture / Unknown 06/10/2025 4:24 AM EDT 06/10/2025 4:40 AM EDT us Faiza Nye MD LAB BLOOD ORDERABLES Final Re sult Performing Organization Address City/[facility]/ZIP Co de Phone Number [facility] [address] [place] [address] * (ABNORMAL) Comprehensive Metabolic Panel, Plasma (06/10/2025 4:24 AM EDT) Only the most recent of11 resultswithin the time period is included. Glucose, Plasma 165(H) 74 - 99 mg/dL 06/10/2025 5:09 AM EDT [facility] BUN, Plasma 57(H) 7 - 21 mg/dL 06/10/2025 5:09 AM EDT [facility] Creatinine, Plasma 3.74(H) 0.60 - 1.10 mg/dL 06/10/2025 5:09 AM EDT [facility] BUN/Creatinine Ratio 15 06/10/2025 5:09 AM EDT [facility] Sodium, Plasma 136 136 - 145 mmol/L 06/10/2025 5:09 AM EDT [facility] Potassium, Plasma 4.1 3.6 - 4.9 mmol/L 06/10/2025 5:09 AM EDT [facility] Chloride, Plasma 99 97 - 107 mmol/L 06/10/2025 5:09 AM EDT [facility] CO2, Plasma 23 22 - 29 mmol/L 06/10/2025 5:09 AM EDT [facility] Anion Gap 14 6 - 16 mmol/L 06/10/2025 5:09 AM EDT [facility] Total Calcium, Plasma 8.2(L) 8.9 - 10.2 mg/dL 06/10/2025 5:09 AM EDT [facility] Total Protein 5.8(L) 6.3 - 7.9 g/dL 06/10/2025 5:09 AM EDT [facility] Albumin, Plasma 2.7(L) 3.5 - 5.2 g/dL 06/10/2025 5:09 AM EDT [facility] AST, Plasma 9(L) 10 - 35 U/L 06/10/2025 5:09 AM EDT [facility] ALT, Plasma <5(L) 10 - 35 U/L 06/10/2025 5:09 AM EDT [facility] Alkaline Phosphatase, Plasma 166(H) 46 - 142 U/L 06/10/2025 5:09 AM EDT [facility] Total Bilirubin, Plasma 0.4 0.2 - 1.1 mg/dL 06/10/2025 5:09 AM EDT [facility] eGFRcr 13.6 mL/min/1.7 3m*2 06/10/2025 5:09 AM EDT [facility] Comment:Reported eGFRcr in m L/min/1.73m2 is based the CKD-EPI 2020 equation that does not use a race coefficient. Blood Venous blood specimen / Unknown Venipuncture / Unknown 06/10/2025 4:24 AM EDT 06/10/2025 4:40 AM EDT us Faiza Nye MD LAB BLOOD ORDERABLES Final Re sult Performing Organization Address [facility] Co de Phone Number [facility] [address] [place] [address] * (ABNORMAL) POCT glucose meter (06/05/2025 11:54 AM EDT) Only the most recent of6 resultswithin the time period is included. [facility] POCT Glucose 127(H) 74 - 99 mg/dL 06/05/2025 11:56 AM EDT [facility] Comment:Accuracy of a glucos e result [...] Comment 06/05/2025 11:56 AM EDT [facility] Cryptographic Center Specialist ID John, Milagros 06/05/2025 11:56 AM EDT [facility] Device ID [id number] 06/05/2025 11:56 AM EDT [facility] Specimen Type POC Capillary 06/05/2025 11:56 AM EDT [facility] Blood Capillary blood specimen / Unknown 06/05/2025 11:54 AM EDT 06/05/2025 11:56 AM EDT us Mayra Rogers MD LAB POINT OF CARE TE ST DOCKED DEVICE UNSOLICITED RESULTS Final Result Performing Organization Address [facility] de Phone Number [facility] [address] [place] [address] * Hepatitis B Surface Antibody, Quantitative (06/05/2025 2:21 AM EDT) Only the most recent of2 resultswithin the time period is included. [facility] Hepatitis B Surface Antibody, Quantitative <8.00 NonReactiv e: <8, Grayzone: 8 - <12, Reactive: >= 12 mIU/mL 06/05/2025 5:18 AM EDT [facility] Comment: Nonreactive. Individual is considered not immune to HBV infection. Blood Venous blood specimen / Unknown Venipuncture / Unknown 06/05/2025 2:21 AM EDT 06/05/2025 2:35 AM EDT Mayra Rogers MD LAB BLOOD ORDERABLES Final Resul t Performing Organization Address [facility] Phone Number [facility] [address] [place] [address] * Acute Hepatitis Panel (06/05/2025 2:21 AM EDT) Only the most recent of2 resultswithin the time period is included. Hepatitis B Surf Antigen Negative Negative 06/05/2025 4:43 AM EDT [facility] Hepatitis C Antibody Negative Negative 06/05/2025 4:43 AM EDT [facility] Hepatitis A Antibody IgM Negative Negative 06/05/2025 4:43 AM EDT [facility] Hepatitis B Core Antibody IgM Negative Negative 06/05/2025 4:43 AM EDT [facility] Blood Venous blood specimen / Unknown Venipuncture / Unknown 06/05/2025 2:21 AM EDT 06/05/2025 2:35 AM EDT Mayra Rogers MD LAB BLOOD ORDERABLES Final Resul t Performing Organization Address [facility] Phone Number [facility] [address] [place] [address] * IR Angiogram ArterioVenous Shunt (06/04/2025 2:31 [...] EDT CLINICAL INDICATION: Low flow AVF TECHNIQUE: Electrician Supervisor: Dr. Ferris Secondary Cryptographic Center Specialist: None Rad Dose: 3 mGy = Procedure: [...] over a guide wire for a 4 Albanian micropuncture sheath. The micropuncture sheath was exchanged for a 6 Albanian vascular sheath. Via the sheath, A stiff [...] a 7 mm x 4 cm conquest HIGH WORKER balloon with acceptable technical result. Digital subtraction [...] 06/04/2025 CLINICAL INDICATION: Low flow AVF TECHNIQUE: Electrician Supervisor: Dr. Ferris Secondary [facility] Specialist: None Rad Dose: 3 mGy = Procedure: [...] exchangedover a guide wire for a 4 Albanian micropuncture sheath. The micropuncturesheath was exchanged for a 6 Albanian vascular sheath. Via the sheath, [place] glide [...] a 7 mm x 4 cm conquest HIGH WORKER balloon with acceptable technical result.Digital subtraction angiography [...] LAB HEMATOLOGY METHOD 06/03/2025 2:01 PM EDT [facility] HCT 28.6(L) 34.0 - 45.0 % LAB HEMATOLOGY METHOD 06/03/2025 2:01 PM EDT [facility] Blood Venous blood specimen / Unknown Venipuncture / Unknown 06/03/2025 12:43 PM EDT 06/03/2025 2:01 PM EDT us Mayra Rogers MD LAB BLOOD ORDERABLES Final Resul t [facility] [address] [place] [address] * VAS US Hemodialysis Access Left (06/02/2025 [...] is no recent study available for direct cmbm-bc-[id number] comparison. Unable to complete study due to [...] is no recent study available for direct xjvj-qm-giis comparison. us Faiza Nye MD CV ECHO PROCEDURES Final Resu lt * (ABNORMAL) TSH Reflex FT4 (06/02/2025 4:07 AM EDT) Thyroid Stimulating Hormone, Plasma 23.70(H) 0.40 - 4.20 uIU/mL 06/02/2025 5:37 PM EDT [facility] Blood Venous blood specimen / Unknown Venipuncture / Unknown 06/02/2025 4:07 AM EDT 06/02/2025 4:26 AM EDT Mayra Rogers MD LAB BLOOD ORDERABLES Final Resul t Performing Organization Address City/[facility]/[place] [address] * (ABNORMAL) Free T4, Plasma (06/02/2025 4:07 AM EDT) Only the most recent of2 resultswithin the time period is included. Pathologist [facility] Free T4, Plasma 0.6(L) 0.8 - 1.7 ng/dL 06/02/2025 6:15 PM EDT [facility] Blood Venous blood specimen / Unknown Venipuncture / Unknown 06/02/2025 4:07 AM EDT 06/02/2025 4:26 AM EDT Mayra Rogers MD LAB BLOOD ORDERABLES Final Resul t Performing Organization Address City/[facility]/[place] [address] * SARS-CoV-2, Flu A, Flu B, and RSV - Rapid (06/01/2025 6:53 PM EDT) [facility] SARS CoV-2/COVID-19 RNA PCR Result Not Detected Not Detected 06/01/2025 7:59 PM EDT [facility] Influenza A Virus PCR Result Not Detected Not Detected 06/01/2025 7:59 PM EDT [facility] Influenza B Virus PCR Result Not Detected Not Detected 06/01/2025 7:59 PM EDT [facility] Respiratory Syncytial Virus (RSV) PCR Result Not Detected Not Detected 06/01/2025 7:59 PM EDT [facility] Swab Nasopharyngeal structure / Unknown Non-blood Collection / Unknown 06/01/2025 6:53 PM EDT 06/01/2025 7:02 PM EDT Narrative [facility] - 06/01/2025 7:59 PM EDT [...] OR DERABLES Final Result Performing Organization Address City/[facility] Co de Phone Number [facility] [address] [place] [address] * Blood Culture (Aerobic/Anaerobet Set) (06/01/2025 6:52 PM EDT) Only the most recent of2 resultswithin the time period is included. Culture No growth at day 5 06/06/2025 8:01 PM EDT [facility] Blood Structure of right hand / Unknown Venipuncture / Unknown 06/01/2025 6:52 PM EDT 06/01/2025 7:03 PM EDT Narrative [facility] - 06/06/2025 8:01 PM EDT Low blood volume submitted, results may be compromised Faiza Nye MD LAB MICROBIOLOGY - GENERAL OR DERABLES Final Result Performing Organization Address [facility] Co de Phone Number [facility] [address] [place] [address] * XR Chest 1 View (06/01/2025 5:10 [...] Narrative 06/01/2025 7:25 PM EDT CLINICAL INDICATION: SOCarlito, hasn't had dialysis since Tuesday TECHNIQUE: XR CHEST 1 VIEW COMPARISON: 07/01/2024 radiograph FINDINGS: Stable enlarged cardiomediastinal silhouette. Intact median sternotomy wires. Bilateral, right greater than left perihilar airspace opacities and moderate to large right pleural effusion. No sizable pneumothorax. Procedure Note Tanwy Hughes MD - 06/01/2025 CLINICAL INDICATION: ALEJANDRA, [...] MD on 06/01/2025 7:25 PM us Klarissa Montes Alisson DO IMG XR PROCEDURES Final Resul t * EKG now - STAT (adult) (06/01/2025 4:57 PM EDT) Only the most recent of2 resultswithin the time period is included. EKG DIAGNOSIS CLASS Abnormal MUSE ECG Ventricular Rate 48 BPM MUSE ECG Atrial Rate 48 BPM MUSE ECG DE Interval 154 ms MUSE ECG QRSD Interval 114 ms MUSE ECG QT Interval 478 ms MUSE ECG QTC Interval 427 ms MUSE ECG P Nen[place] 54 degrees MUSE ECG R [place] 116 degrees MUSE ECG T Wave N[place]ana -12 degrees MUSE ECG Diagnosis Sinus bradycardia with premature atrial complexes with aberrant conduction MUSE ECG Diagnosis Low voltage QRS MUSE ECG Diagnosis Possible , old Anterior infarct MUSE ECG Diagnosis Left posterior fascicular block MUSE ECG Diagnosis Nonspecific T wave abnormality MUSE ECG Diagnosis Abnormal ECG MUSE ECG Diagnosis MUSE ECG Diagnosis Confirmed by Michael Garner ([id number]) on 06/02/2025 10:26:53 AM MUSE ECG 06/01/2025 4:57 PM EDT 06/02/2025 10:26 AM EDT us Klarissa Vinson DO ECG ORDERABLES Final Result Performing Organization Address City/[facility]/ZIP Co de Phone Number MUSE ECG * (ABNORMAL) BNP (06/01/2025 4:47 PM EDT) N-Terminal, PROBNP, Plasma >70,000(H) 0 - 899 pg/mL 06/01/2025 10:34 PM EDT [facility] Blood Venous blood specimen / Unknown Venipuncture / Unknown 06/01/2025 4:47 PM EDT 06/01/2025 4:53 PM EDT us Faiza Nye MD LAB BLOOD ORDERABLES Final Re sult [facility] [address] [place] [address] * (ABNORMAL) CBC (06/01/2025 4:47 PM EDT) WBC Count 6.37 3.70 - 10.30 10*3/uL LAB HEMATOLOGY METHOD 06/01/2025 5:00 PM EDT [facility] RBC Count 3.11(L) 3.90 - 5.20 10*6/uL LAB HEMATOLOGY METHOD 06/01/2025 5:00 PM EDT [facility] HGB 8.6(L) 11.2 - 15.7 g/dL LAB HEMATOLOGY METHOD 06/01/2025 5:00 PM EDT [facility] HCT 30.3(L) 34.0 - 45.0 % LAB HEMATOLOGY METHOD 06/01/2025 5:00 PM EDT [facility] Platelet Count 46(L) 155 - 369 10*3/uL LAB HEMATOLOGY METHOD 06/01/2025 5:00 PM EDT [facility] MCV 97 79 - 98 fL LAB HEMATOLOGY METHOD 06/01/2025 5:00 PM EDT [facility] MCH 27.7 26.0 - 32.0 pg LAB HEMATOLOGY METHOD 06/01/2025 5:00 PM EDT [facility] MCHC 28.4(L) 30.7 - 35.5 g/dL LAB HEMATOLOGY METHOD 06/01/2025 5:00 PM EDT [facility] RDW 15.4(H) 11.5 - 14.5 % LAB HEMATOLOGY METHOD 06/01/2025 5:00 PM EDT [facility] MPV LAB HEMATOLOGY METHOD 06/01/2025 5:00 PM EDT [facility] Comment:Not Measured nRBC 0.0 <=0.0 per 100 WBCs LAB HEMATOLOGY METHOD 06/01/2025 5:00 PM EDT [facility] Blood Venous blood specimen / Unknown Venipuncture / Unknown 06/01/2025 4:47 PM EDT 06/01/2025 4:53 PM EDT us Klarissa Vinson DO LAB BLOOD ORDERABLES Final Re sult [facility] [address] [place] [address] * (ABNORMAL) Blood gas panel, venous (06/01/2025 4:47 PM EDT) Only the most recent of2 resultswithin the time period is included. pH, Venous 7.34 7.32 - 7.43 LAB HEMATOLOGY METHOD 06/01/2025 4:54 PM EDT [facility] pCO2, Venous 51 37 - 52 mmHg LAB HEMATOLOGY METHOD 06/01/2025 4:54 PM EDT [facility] pO2, Venous 39 25 - 40 mmHg LAB HEMATOLOGY METHOD 06/01/2025 4:54 PM EDT [facility] SO2, Measured, Venous 66 65 - 80 % LAB HEMATOLOGY METHOD 06/01/2025 4:54 PM EDT [facility] Base Excess, Venous 1.5 -2.0 - 3.0 mmol/L LAB HEMATOLOGY METHOD 06/01/2025 4:54 PM EDT [facility] Bicarbonate, Calculated, Venous 28(H) 22 - 26 mmol/L LAB HEMATOLOGY METHOD 06/01/2025 4:54 PM EDT [facility] Hematocrit, Whole Blood 26.2(L) 34.0 - 45.0 % LAB HEMATOLOGY METHOD 06/01/2025 4:54 PM EDT [facility] Sodium, Whole Blood 138 136 - 145 mmol/L LAB HEMATOLOGY METHOD 06/01/2025 4:54 PM EDT [facility] Potassium, Whole Blood 3.3(L) 3.6 - 4.9 mmol/L LAB HEMATOLOGY METHOD 06/01/2025 4:54 PM EDT [facility] Chloride, Whole Blood 96(L) 97 - 107 mmol/L LAB HEMATOLOGY METHOD 06/01/2025 4:54 PM EDT [facility] Glucose, Whole Blood 158(H) 74 - 99 mg/dL LAB HEMATOLOGY METHOD 06/01/2025 4:54 PM EDT [facility] Lactate, Venous, Whole Blood 0.8 0.5 - 2.2 mmol/L LAB HEMATOLOGY METHOD 06/01/2025 4:54 PM EDT [facility] Ionized Calcium, Whole Blood 4.5(L) 4.6 - 5.1 mg/dL LAB HEMATOLOGY METHOD 06/01/2025 4:54 PM EDT [facility] Blood Venous blood specimen / Unknown Venipuncture / Unknown 06/01/2025 4:47 PM EDT 06/01/2025 4:53 PM EDT us Klarissa Vinson DO LAB BLOOD ORDERABLES Final Re sult [facility] [address] [place] [address] * Quantiferon TB Gold (05/06/2025 4:22 PM EDT) Quantiferon TB Gold Plus Result Negative Negative 05/07/2025 8:11 PM EDT [facility] TB Nill Value 0.0799 IU/mL 05/07/2025 8:11 PM EDT [facility] TB Antigen 1 -0.0075 IU/mL 05/07/2025 8:11 PM EDT [facility] TB Antigen 2 0.0026 IU/mL 05/07/2025 8:11 PM EDT [facility] TB Mitogen 9.9201 IU/mL 05/07/2025 8:11 PM EDT [facility] Blood Venous blood specimen / Unknown Venipuncture / Unknown 05/06/2025 4:22 PM EDT 05/06/2025 4:56 PM EDT Narrative [facility] - 05/07/2025 8:11 PM EDT Responses to the Mitogen positive control and occasionally to TB antigen can be above the assay range. For calculation purposes: IFN-gamma values > 10 IU/mL are handled as 10 IU/mL. us Sumi Land MD LAB BLOOD ORDERABLES Final Res ult [facility] [address] [place] [address] * (ABNORMAL) BMP (05/06/2025 1:25 PM EDT) Pathologist [facility] Glucose, Plasma 174(H) 74 - 99 mg/dL 05/06/2025 1:50 PM EDT [facility] BUN, Plasma 74(H) 7 - 21 mg/dL 05/06/2025 1:50 PM EDT [facility] Creatinine, Plasma 5.20(H) 0.60 - 1.10 mg/dL 05/06/2025 1:50 PM EDT [facility] BUN/Creatinine Ratio 14 05/06/2025 1:50 PM EDT [facility] Sodium, Plasma 136 136 - 145 mmol/L 05/06/2025 1:50 PM EDT [facility] Potassium, Plasma 3.4(L) 3.6 - 4.9 mmol/L 05/06/2025 1:50 PM EDT [facility] Chloride, Plasma 96(L) 97 - 107 mmol/L 05/06/2025 1:50 PM EDT [facility] CO2, Plasma 20(L) 22 - 29 mmol/L 05/06/2025 1:50 PM EDT [facility] Anion Gap 20(H) 6 - 16 mmol/L 05/06/2025 1:50 PM EDT [facility] Total Calcium, Plasma 7.0(L) 8.9 - 10.2 mg/dL 05/06/2025 1:50 PM EDT [facility] eGFRcr 9.2 mL/min/1.7 3m*2 05/06/2025 1:50 PM EDT [facility] Comment:Reported eGFRcr in m L/min/1.73m2 is based the CKD-EPI 2020 equation that does not use a race coefficient. Blood Venous blood specimen / Unknown Venipuncture / Unknown 05/06/2025 1:25 PM EDT 05/06/2025 1:27 PM EDT us Sena Navarro MD LAB BLOOD ORDERABLES Final Resu lt [facility] [address] [place] [address] * Type and screen (05/05/2025 4:24 PM [...] TEST ORDERABLES Final Result Performing Organization Address [facility]/ZIP Co de Phone Number BLOOD BANK [address] [place] [address], * (ABNORMAL) Thyroid Stimulating Hormone, Plasma (05/05/2025 4:24 PM EDT) Thyroid Stimulating Hormone, Plasma 12.22(H) 0.40 - 4.20 uIU/mL 05/05/2025 4:57 PM EDT [facility] Blood Venous blood specimen / Unknown Venipuncture / Unknown 05/05/2025 4:24 PM EDT 05/05/2025 4:29 PM EDT Narrative [facility] - 05/05/2025 4:57 PM EDT Trimester Specific Ranges TSH ( IU/mL) 1st Trimester 0.1 - 3.0 2nd Trimester 0.19 - 4.06 3rd Trimester 0.3 - 3.7 us Adalberto Feliz MD LAB BLOOD ORDERABLES Final Res ult Performing Organization Address City/[facility]/ZIP Co de Phone Number [facility] [address] [place] [address] * (ABNORMAL) Hemoglobin A1c (06/30/2024 11:32 AM EDT) Hemoglobin A1c 5.7(H) <5.7 % 06/30/2024 1:16 PM EDT [facility] Blood Venous blood specimen / Unknown Venipuncture / Unknown 06/30/2024 11:32 AM EDT 06/30/2024 12:28 PM EDT Narrative [facility] - 06/30/2024 1:16 PM EDT HA1C Interpretive Data: Diagnosis of Diabetes: Diabetic > or = 6.5% Pre-diabetic 5.7 to 6.4% Non-diabetic < or = 5.6% Glycemic Targets for Type I and Type II Diabetics: Non- Adults <7.0% Adults <6.0% Children and Adolescents <7.5% Source: [place] [employer]. Standards of medical care in diabetes,2017. Diabetes Care.2017:40 (suppl 1):S1-S135. HbA1c assay performed by an ion-exchange chromatography method that is certified traceable to the DCCT. us Jemal Nolan MD LAB BLOOD ORDERABLES Final Resul t [facility] [address] [place] [address] * ED HIV 1/2 Antibody/Antigen Screen w/Reflex to HIV 1/2 Differentiation (06/21/2024 4:48 PM EDT) HIV 1 & 2 Antibody/Antigen Screen Non Reactive Non Reactive 06/21/2024 6:09 PM EDT [facility] Comment:Screening for HIV 1 & 2 antibodies, and P24 antigen is NONREACTIVE. No confirmatory testing is required. Blood Venous blood specimen / Unknown Venipuncture / Unknown 06/21/2024 4:48 PM EDT 06/21/2024 5:26 PM EDT us Douglas Thurman MD LAB BLOOD ORDERABLES Final Resul t [facility] [address] [place] [address] from Last 3 Months or Most Recently Relevant to Health Maintenance Additional Health Concerns Active Problems Noted Date Diagnosed Date Heart Failure diagnosis knowledge deficit 2024 Fluid retention / overload 06/19/2025 Sodium intake 06/19/2025 Heart failure medication adherence 06/19/2025 Exercise regimen 06/19/2025 Heart failure maintenance 06/19/2025 Heart failure progression and care needs 025 Insurance MEDICARE Advance Directives * DNR/DNI (Latest Code [...] Patient has decision-making capacity? Yes Care Teams Travel Rn Relationship Specialty Start Date End Date Rosemarie Riley, BEAUTY OPERATOR [address] [place] [address] PCP - General 04/02/25 Baylee Gracia, RN Registered Nurse 06/12/25
--- OUTSIDE RECORDS SUMMARY | 2025-07-25 05:46 | XMS_ITS ---
Care Plan Created on: July 25, 2025 Mar Waldron : 1970 Sex: Female Author Organization [facility] Address [address] [place] [address] Care Team Providers Care Countersinker Balance Screw Hole Name Role Phone Rosemarie Riley APRN Primary Care Provider [phone] Baylee Gracia RN Unavailable Unavailable Active Problems [...] care planning and utilize ACP tools within [facility] for discussion and documentation. 06/19/2025 Educate [...] more information about heart disease, visit The [place] [employer]'s website at https://www.heart.org/en/health-topics 06/19/2025 Encourage [...] information about heart disease , visit The [place] [employer]'s website at https://www.heart.org/en/health-topics; Encourage patient [...] care planning and utilize ACP tools within [facility] for discussion and documentation.; Educate patient on trajectory of chronic illness; Educate patient on potential treatments for each stage; Educate patient regarding symptoms with end stage heart failure; Educate patient on stages of heart failure
--- OUTSIDE RECORDS SUMMARY | 2025-07-25 05:46 | XMS_ITS ---
Author Organization [facility] Address [address] [place] [address] Care Team Providers Care Brick Paver Name Role Phone Rosemarie Riley APRN Primary Care Provider [phone] Baylee Gracia RN Unavailable Unavailable High Risk Care Management Status:Identified (Enrolling) Start date:06/12/2025 Enrollment reason:Identified using hospital discharge data Overview This is a Population Health program aimed at increasing positive outcomes for high-risk patients. Case Team Name Relationship Phone Baylee Gracia RN(Responsible Staff) Registered Nurse Continued Care and Services Coordination
--- OUTSIDE RECORDS SUMMARY | 2025-07-25 05:46 | XMS_ITS | Encounter Summary ---
Author Organization [facility] Address [address] [place] [address] Care Team Providers Care Pot Builder Name Role Phone Osmani Becekr MD Primary Care Provider [phone] Rosemarie Riley APRN Primary Care Provider [phone] Haydee Mccloud Unavailable Unavailable Baylee Gracia RN Unavailable Unavailable Encounter Details Date Type Department Care Team (Late st Contact Info) Description 02/20/2025 Orders Only External Location [address] [place] [address] Provider, External Social History Tobacco Use Types [...] place to sleep or slept in a nursing home (including now)? No 06/25/2024 CAGE ASSESSMENT [...] first t jacqueline in the morning (EYE-DAIRY STORE MANAGER) to steady your nerves or to [...] [facility] st Contact Info) Description 08/20/2025 12:00 PM EST Office Visit [facility] [address], [address] [place] [address] Kaiden Harvey MD [address] [place] [address] 11/06/2025 9:15 AM EST Office Visit [facility] [address], [address] [place] [address] Joanna Bartlett MD [address] [place] [address] documented as of this encounter [...] documented as of this encounter Care Teams Pot Builder Relationship Specialty Start Date End Date Osmani Becker MD [address] [facility] [address] [place] [address] PCP - General 01/30/21 03/03/25 Rosemarie Riley APRN [address] [place] [address] [place] [address] PCP - General 04/02/25 Haydee Mccloud Manager Of Construction Regional Driver 06/03/25 06/25/25 Baylee Gracia, RN Registered Nurse 06/12/25 documented as of this encounter
--- OUTSIDE RECORDS SUMMARY | 2025-07-25 05:46 | XMS_ITS | Encounter Summary ---
Author Organization [facility] Address [address] [place] [address] Care Team Providers Care Brand Marketing Specialist Name Role Phone Osmani Becker MD Primary Care Provider [phone] Rosemarie Riley APRN Primary Care Provider [phone] Haydee Mccloud Unavailable Unavailable Baylee Gracia RN Unavailable Unavailable Encounter Details Date Type Department Care Team (Late st Contact Info) Description 02/20/2025 Orders Only External Location [address] [place] [address] Provider, External Social History Tobacco Use Types [...] and Family Not on file 06/25/2024 Attends [employer] Not on file 06/25 Active [...] place to sleep or slept in a fpc (including now)? No 06/25/2024 CAGE ASSESSMENT Answer [...] drink first t jacqueline in the morning (EYE-GREASE WORKER) to steady your nerves or to [...] Upcoming Encounters Date Type Department Care Team ([facility] st Contact Info) Description 08/20/2025 12:00 PM EST Office Visit [facility] [address], [address] [place] [address] Kaiden Harvey MD [address] [place] [address] 11/06/2025 9:15 AM EST Office Visit [facility] [address], [address] [place] [address] Joanna Bartlett MD [address] [place] [address] documented as of this encounter Procedures Procedure Name Priority Date/Time Associated Diagnosis Comments CT MSK OUTSIDE IMAGES 02/20/2025 11:49 AM EDT documented in this encounter Results * CT MSK OUTSIDE IMAGES (02/20/2025 11:49 AM EDT) Anatomical Region Laterality Modality Computed Tomogra phy 02/20/2025 11:4 9 AM EDT External Provider IMG CT PROCEDURES Final [...] documented as of this encounter Care Teams Brand Marketing Specialist Relationship Specialty Start Date End Date Osmani Becker MD [address] [facility] [address] [place] [address] PCP - General 01/30/21 03/03/25 Rosemarie Riley APRN [address] [place] [address] [place], [place] [id number] PCP - General 04/02/25 Haydee Mccloud University Extension Specialist Environmental Management Specialist 06/03/25 06/25/25 Baylee Gracia, RN Registered Nurse 06/12/25 documented as of this encounter
--- OUTSIDE RECORDS SUMMARY | 2025-07-25 05:47 | XMS_ITS | Encounter Summary ---
Author Organization [facility] Address [address] [place] [address] Care Team Providers Care Erosion Control Specialist Name Role Phone RosemaryRosemarie Shanel WILSON Primary Care Provider [phone] Haydee Mccloud Unavailable Unavailable Reason for Visit * Reason Comments Link Encounter Details Date Type Department Care Team ([facility] st Contact Info) Description 06/03/2025 Patient Outreach POPULATION HEALTH [address], [address] [place] [address] Wendie De Leon Social History [...] any time in the past 12 m [facility], were you homeless or living in a retirement (including now)? No 06/03/2025 [facility] Utilities Answer Date Recorded In the [...] drink first t jacqueline in the morning (EYE-HYDROPRESS OPERATOR) to steady your nerves or to [...] she comes home from the hospital or [facility]. He stated he will speak with his brother before they decide. Advised him thatif they choose to enroll that it would be a good idea for one of them to be present for the home visit. documented in this encounter Plan of Treatment Upcoming Encounters Date Type Department Care Team (Late st Contact Info) Description 08/20/2025 12:00 PM EST Office Visit [facility] [place] [address] [facility], [address] [place] [address] Kaiden Harvey MD [address] [place] [address] 11/06/2025 9:15 AM EST Office Visit [facility] [place] [address], [address] [place] [address] Joanna Bartlett MD [address] [facility] [address] [place] [address] documented as of this encounter Visit Diagnoses Not on filedocumented in this encounter Additional Health Concerns Assessment Noted Time A Body Mass Index follow-up plan has been documented for the patient 06/10/2025 2:59 PM EDT documented as of this encounter Care Teams Erosion Control Specialist Relationship Specialty Start Date End Date Rosemarie Riley APRN [address] [id number] PCP - General 04/02/25 Haydee Mccloud Form Setter/Driver Paperhanger And Painter 06/03/25 06/25/25 documented as of this encounter
--- OUTSIDE RECORDS SUMMARY | 2025-07-25 05:47 | XMS_ITS | Encounter Summary ---
Author Organization [facility] Address [address] [place] [address] Care Team Providers Care [place] Passer Name Role Phone RileyRosemarie beach Shanel WILSON Primary Care Provider [phone] Baylee Gracia RN Unavailable Unavailable Reason for Visit * Reason Comments HRCM Encounter Details Date Type Department Care Team ([facility] [place] Contact Info) Description 07/04/2025 Patient Outreach POPULATION HEALTH [address] [facility] [address], [address] [place] [address] Baylee Gracia, RN HRCM Social [...] in a m[facility]p (including now)? No 06/03/2025 [facility] Utilities Answer Date Recorded In the [...] drink first t jacqueline in the morning (EYE-RECLAMATION ENGINEER) to steady your nerves or to [...] Patient was DC late last week from [place]. He reports she is doing great. Mobility is improving. Her mood and overall mental health seems to be improving. They are seeing urology tomorrow and have a pulm function [...] days. Next Steps: Checklist updated. Baylee Gracia [facility] Nurse Population Health documented in this encounter Plan of Treatment Upcoming Encounters Date Type Department Care Team (Late st Contact Info) Description 08/20/2025 12:00 PM EST Office Visit [facility] [place] [address] [facility], [address] [place] [address] Kaiden Harvey MD [address] [facility] [address] [place] [address] 11/06/2025 9:15 AM EST Office Visit [facility] [address] , [address] [place] [address] Joanna Bartlett MD [address] [facility] [address] [place] [address] documented as of this encounter [...] documented as of this encounter Care Teams [place] Passer Relationship Specialty Start Date End Date Rosemarie Riley, FINANCIAL RECORDING CLERK [address] [place] [address] PCP - General 04/02/25 Baylee Gracia RN Registered Nurse 06/12/25 documented as of this encounter
--- OUTSIDE RECORDS SUMMARY | 2025-07-25 05:47 | XMS_ITS | Encounter Summary ---
Author Organization Healthcare Address [address] [place] [address] Care Team Providers Care Operating Room Specialist Name Role Phone RileyRosemarie beach Shanel WILSON Primary Care Provider [phone] Haydee Mccloud Unavailable Unavailable Baylee Gracia RN Unavailable Unavailable Encounter Details Date Type Department Care Team (Late st Contact Info) Description 06/23/2025 Orders Only External Location [address] [place] [id number] Familia Shabazz, DO [address] [place], [place] [id number] Social History Tobacco Use Types Packs/Day Years [...] time in the past 12 m [facility], were you homeless or living in a half-way (including now)? No 06/03/2025 [facility] [...] drink first t jacqueline in the morning (EYE-HACKLER DOLL WIGS) to steady your nerves or to get [...] Description 08/20/2025 12:00 PM EST Office Visit [facility] [place] [address], [address] [place] [address] Kaiden Harvey MD [address] [place] [address] 11/06/2025 9:15 AM EST Office Visit [facility] [address] [facility], [address] [place] [address] Joanna Bartlett MD [address] [place] [address] documented as of this encounter [...] Gracia, RN documented as of this encounter Procedures Procedure Name Priority Date/Time Associated Diagnosis Comments XR OUTSIDE IMAGES 06/23/2025 12:11 PM EDT documented in this encounter Results * XR OUTSIDE IMAGES (06/23/2025 12:11 PM EDT) Anatomical Region Laterality Modality Radiographic Amira ging 06/23/2025 12:1 1 PM EDT Familia Shabazz DO IMG XR PROCEDURES Edited Res [...] documented as of this encounter Care Teams Operating Room Specialist Relationship Specialty Start Date End Date Rosemarie Riley, STEVE [address] [place] [address] PCP - General 04/02/25 Haydee Mccloud Launching Pad Mechanic Extractor And Wringer Operator 06/03/25 06/25/25 Baylee Gracia, RN Registered Nurse 06/12/25 documented as of this encounter
--- OUTSIDE RECORDS SUMMARY | 2025-07-25 05:47 | XMS_ITS | Encounter Summary ---
Author Organization [facility] Address [address] [place] [address] Care Team Providers Care After School Tutor Name Role Phone RileyRosemarie beach Shanel WILSON Primary Care Provider [phone] Baylee Gracia RN Unavailable Unavailable Reason for Visit * Reason Comments HRCM Encounter Details Date Type Department Care Team ([facility] Contact Info) Description 07/01/2025 Patient Outreach POPULATION HEALTH [address] [facility], [address] [place] [address] Baylee Gracia, RN HRCM Social [...] in a retirement (including now)? No 06/03/2025 [facility] Utilities Answer Date Recorded In the past [...] drink first t jacqueline in the morning (EYE-SPINNING FRAME FIXER) to steady your nerves or to get [...] days. Check list dates updated. Baylee Gracia [facility] Nurse Population Health documented in this encounter Plan of Treatment Upcoming Encounters Date Type Department Care Team (Late st Contact Info) Description 08/20/2025 12:00 PM EST Office Visit [facility] [place] [address] [facility], [address] [place] [address] Kaiden Harvey MD [address] [facility] [address] [place] [address] 11/06/2025 9:15 AM EST Office Visit [facility] [address] [facility], [address] [place] [address] Joanna Bartlett MD [address] [facility] [address] [place] [address] documented as of this encounter [...] documented as of this encounter Care Teams After School Tutor Relationship Specialty Start Date End Date Rosemarie Riley APRN [address] [place] [address] PCP - General 04/02/25 Baylee Gracia RN Registered Nurse 06/12/25 documented as of this encounter
--- OUTSIDE RECORDS SUMMARY | 2025-07-25 05:47 | XMS_ITS | Encounter Summary ---
Author Organization [facility] Address [address] [place] [address] Care Team Providers Care Nuisance Wildlife Trapper Name Role Phone RosemaryRosemarie Shanel WILSON Primary Care Provider [phone] Haydee Mccloud Unavailable Unavailable Encounter Details Date [...] any time in the past 12 m [facility], were you homeless or living in a chcf (including now)? No 06/03/2025 [facility] Utilities Answer Date Recorded In the [...] drink first t jacqueline in the morning (EYE-MEDICAL BILLING ASSOCIATE) to steady your nerves or to get [...] Description 08/20/2025 12:00 PM EST Office Visit [facility] [place] [address] [facility], [address] [place] [address] Kaiden Harvey MD [address] [facility] [address] [place] [address] 11/06/2025 9:15 AM EST Office Visit [facility] [place] [address], [address] [place] [address] Joanna Bartlett MD [address] [facility] [address] [place] [address] documented as of this encounter Visit Diagnoses Not on filedocumented in this encounter Additional Health Concerns Assessment Noted Time A Body Mass Index follow-up plan has been documented for the patient 06/10/2025 2:59 PM EDT documented as of this encounter Care Teams Nuisance Wildlife Trapper Relationship Specialty Start Date End Date Rosemarie Riley APRN [address] [place] [address] PCP - General 04/02/25 Haydee Mccloud Insurance Sales Assistant Tanker Driver 06/03/25 06/25/25 documented as of this encounter
--- OUTSIDE RECORDS SUMMARY | 2025-07-25 05:47 | XMS_ITS | Encounter Summary ---
Author Organization [facility] Address [address] [place] [address] Care Team Providers Care Tint Layer Name Role Phone RileyRosemarie beach STEVE Primary Care Provider [phone] Haydee Mccloud Unavailable Unavailable Baylee Gracia RN Unavailable Unavailable Encounter Details Date Type Department Care Team (Late st Contact Info) Description 06/12/2025 Referral Triage POPULATION HEALTH [address] [facility], [address] [place] [address] Baylee Gracia, RN Social History [...] time in the past 12 m [facility], were you homeless or living in a intermediate (including now)? No 06/03/2025 [facility] Utilities Answer Date Recorded In the [...] drink first t jacqueline in the morning (EYE-EXAMINER RATING CLERK) to steady your nerves or to [...] Description 08/20/2025 12:00 PM EST Office Visit [facility] [place] [address], [address] [place] [address] Kaiden Harvey MD [address] [place] [address] 11/06/2025 9:15 AM EST Office Visit [facility] [address] [facility], [address] [place] [address] Joanna Bartlett MD [address] [place] [address] documented as of this encounter Visit Diagnoses Not on filedocumented in this encounter Additional Health Concerns Assessment Noted Time A Body Mass Index follow-up plan has been documented for the patient 06/10/2025 2:59 PM EDT documented as of this encounter Care Teams Tint Layer Relationship Specialty Start Date End Date Rosemarie Riley APRN [address] [place] [address] PCP - General 04/02/25 Haydee Mccloud Cutter Helper Actuary 06/03/25 06/25/25 Baylee Gracia, RN Registered Nurse 06/12/25 documented as of this encounter
--- OUTSIDE RECORDS SUMMARY | 2025-07-25 05:47 | XMS_ITS | Encounter Summary ---
Author Organization [facility] Address [address] [place] [address] Care Team Providers Care Drapery Hemmer Automatic Name Role Phone RosemaryRosemarie Shanel WILSON Primary Care Provider [phone] Haydee Mccloud Unavailable Unavailable Encounter Details Date [...] in a fci (including now)? No 06/03/2025 [facility] Utilities Answer Date Recorded In [...] drink first t jacqueline in the morning (EYE-FIXING MACHINE OPERATOR) to steady your nerves or [...] Description 08/20/2025 12:00 PM EST Office Visit [facility] [place] [address] [facility], [address] [place] [address] Kaiden Harvey MD [address] [facility] [address] [place] [address] 11/06/2025 9:15 AM EST Office Visit [facility] [address] [facility], [address] [place] [address] Joanna Bartlett MD [address] [place] [facility] [address] [place] [address] documented as of this encounter Visit Diagnoses Not on filedocumented in this encounter Additional Health Concerns Assessment Noted Time A Body Mass Index follow-up plan has been documented for the patient 06/10/2025 2:59 PM EDT documented as of this encounter Care Teams Drapery Hemmer Automatic Relationship Specialty Start Date End Date Rosemarie Riely APRN [facility] [place] [address] PCP - General 04/02/25 Haydee Mccloud Assistant County Engineer College Instructor 06/03/25 06/25/25 documented as of this encounter
--- OUTSIDE RECORDS SUMMARY | 2025-07-25 05:47 | XMS_ITS | Encounter Summary ---
Author Organization [facility] Address [address] [place] [address] Care Team Providers Care Pilot Fuel Engineer Name Role Phone RosemaryRosemarie Shanel WILSON Primary Care Provider [phone] Haydee Mccloud Unavailable Unavailable Baylee Gracia RN Unavailable Unavailable Reason for Visit * Reason Comments TCM Encounter Details Date Type Department Care Team (Late st Contact Info) Description 06/17/2025 Patient Outreach POPULATION HEALTH [address] [place] [address] Baylee Gracia, RN TCM Social [...] time in the past 12 m [facility], were you homeless or living in a assisted (including now)? No 06/03/2025 [facility] Utilities Answer Date Recorded In [...] drink first t jacqueline in the morning (EYE-SCHEDULE CLERK) to steady your nerves or to [...] Upcoming Encounters Date Type Department Care Team ([facility] st Contact Info) Description 08/20/2025 12:00 PM EST Office Visit [facility] [place] [address] [facility], [address] [place] [address] Kaiden Harvey MD [address] [facility] [address] [place] [address] 11/06/2025 9:15 AM EST Office Visit [facility] [address] [facility], [address] [place] [address] Joanna Bartlett MD [address] [facility] [address] [place] [address] documented as of this encounter Visit Diagnoses Not on filedocumented in this encounter Additional Health Concerns Assessment Noted Time A Body Mass Index follow-up plan has been documented for the patient 06/10/2025 2:59 PM EDT documented as of this encounter Care Teams Pilot Fuel Engineer Relationship Specialty Start Date End Date Rosemarie Riley APRN [address] [place] [address] PCP - General 04/02/25 Haydee Mccloud Asp Net Programmer Fluorescent Lamp Replacer 06/03/25 06/25/25 Baylee Gracia, RN Registered Nurse 06/12/25 documented as of this encounter
--- OUTSIDE RECORDS SUMMARY | 2025-07-25 05:47 | XMS_ITS | Encounter Summary ---
Author Organization Healthcare Address [address] [place] [address] Care Team Providers Care Retail Reset Merchandiser Name Role Phone Rosemarie Riley APRN Primary Care Provider [phone] Haydee Mccloud Unavailable Unavailable Reason for Referral * Consultation (Routine) - Authorized Specialty Diagnoses / Procedures Referred By Contac t Referred To Contact Diagnoses Encounter for support and coordination of transition of care Mayra Rogers MD [address] [place] [phone] Phone: tel: fax: [facility] [address] [facility] [address], [facility] [address] [place] [address] Phone: tel: Referral ID Status Reason Start Date Expiration Date Visits Requested Visits Authorized [id number] Authorized Other Co-Managemen t of Problem 06/11/2025 12/11/2026 1 1 Reason for Visit * Reason Comments Link Encounter Details Date Type Department Care Team ([facility] st Contact Info) Description 06/06/2025 Patient Outreach [facility] [address] [facility] [address] [place], [facility] [address] [place] [address] Haydee Mccloud Link Social History [...] and Family Not on file 06/25/2024 Attends Scientologist Services Not on file 06/25 Active Member [...] in a residential (including now)? No 06/03/2025 [facility] Utilities Answer Date Recorded In the [...] drink first t jacqueline in the morning (EYE-CIRCULATION MANAGER) to steady your nerves or to [...] son by phone. Haydee Mccloud LINK Navigator [email or web address] * Progress Notes - Brooke Bueno - 06/06/2025 12:42 PM EDT Patient discharged prior to LINK enrollment decision. Referred to HRCM for post- discharge support. Brooke Bueno [facility] Rn Population Health documented in this encounter Plan of Treatment Upcoming Encounters Date Type Department Care Team (Late st Contact Info) Description 08/20/2025 12:00 PM EST Office Visit [facility] [place] [address] [facility], [address] [place] [address] Kaiden Harvey MD [address] [facility] [address] [place] [address] 11/06/2025 9:15 AM EST Office Visit [facility] [address] [address] [facility], [address] [place] [address] Joanna Bartlett MD [address] [facility] [address] [place] [address] Scheduled Referrals Name Type Priority Associated Diagnoses [...] documented as of this encounter Care Teams Retail Reset Merchandiser Relationship Specialty Start Date End Date Rosemarie Riley, STEVE [address] [place] [address] PCP - General 04/02/25 Haydee Mccloud Senior Security Architect Research Recruiter 06/03/25 06/25/25 documented as of this encounter
--- OUTSIDE RECORDS SUMMARY | 2025-07-25 05:47 | XMS_ITS | Encounter Summary ---
Author Organization [facility] Address [address] [place] [address] Care Team Providers Care Stator Plate Washer Name Role Phone RosemaryRosemarie Shanel WILSON Primary Care Provider [phone] Haydee Mccloud Unavailable Unavailable Encounter Details Date [...] in the past 12 m [facility], were you homeless or living in a [place] [facility] [place] (including now)? No 06/03/2025 [facility] Utilities [...] drink first t jacqueline in the morning (EYE-BURGLAR ALARM OPERATOR) to steady your nerves or to [...] Description 08/20/2025 12:00 PM EST Office Visit [facility] [place] [address] [facility], [address] [place] [address] Kaiden Harvey MD [address] [facility] [address] [place] [address] 11/06/2025 9:15 AM EST Office Visit [facility] [address], [address] [place] [address] Joanna Bartlett MD [address] [facility] [address] [place] [address] documented as of this encounter Visit Diagnoses Not on filedocumented in this encounter Additional Health Concerns Assessment Noted Time A Body Mass Index follow-up plan has been documented for the patient 06/10/2025 2:59 PM EDT documented as of this encounter Care Teams Stator Plate Washer Relationship Specialty Start Date End Date Rosemarie Riley APRN [address] [place] [address] PCP - General 04/02/25 Haydee Mccloud House Superintendent Coding Advisor 06/03/25 06/25/25 documented as of this encounter
--- OUTSIDE RECORDS SUMMARY | 2025-07-25 05:47 | XMS_ITS | Encounter Summary ---
Author Organization [facility] Address [address] [place] [address] Care Team Providers Care General Science Teacher Name Role Phone RsoemaryRosemarie Shanel WILSON Primary Care Provider [phone] Haydee Mccloud Unavailable Unavailable Baylee Gracia RN Unavailable Unavailable Reason for Visit * Reason Comments TCM Encounter Details Date Type Department Care Team (Late st Contact Info) Description 06/17/2025 Patient Outreach POPULATION HEALTH [address], [address] [place] [address] Baylee Gracia, RN TCM Social [...] any time in the past 12 m [facility], were you homeless or living in a prison (including now)? No 06/03/2025 [facility] Utilities Answer Date Recorded In the past [...] drink first t jacqueline in the morning (EYE-ADMISSIONS OFFICER) to steady your nerves or to [...] seen. RN confirmed with Dr. Becker in [facility] she is being seen on 06/18/2025. Rn provided pain interventions for patient and son. RN to fu with patient for HRCM needs. documented in this encounter Plan of Treatment Upcoming Encounters Date Type Department Care Team (Late st Contact Info) Description 08/20/2025 12:00 PM EST Office Visit [facility] [place] [address] [facility], [address] [place] [address] Kaiden Harvey MD [address] [facility] [address] [place] [address] 11/06/2025 9:15 AM EST Office Visit [facility] [place] [address] , [address] [place] [address] Joanna Bartlett MD [address] [place] [address] documented as of this encounter Visit Diagnoses Not on filedocumented in this encounter Additional Health Concerns Assessment Noted Time A Body Mass Index follow-up plan has been documented for the patient 06/10/2025 2:59 PM EDT documented as of this encounter Care Teams General Science Teacher Relationship Specialty Start Date End Date Rosemarie Riley APRN [address] [place] [address] PCP - General 04/02/25 Haydee Mccloud Computer Technical Support Specialist Marketing Representative 06/03/25 06/25/25 Baylee Gracia, RN Registered Nurse 06/12/25 documented as of this encounter
--- OUTSIDE RECORDS SUMMARY | 2025-07-25 05:47 | XMS_ITS | Encounter Summary ---
Author Organization [facility] Address [address] [place] [address] Care Team Providers Care Wind Turbine Electrical Engineer Name Role Phone RileyRosemarie beach Shanel WILSON Primary Care Provider [phone] Haydee Mccloud Unavailable Unavailable Baylee Gracia RN Unavailable Unavailable Reason for Visit * Reason Comments TCM Encounter Details Date Type Department Care Team (Late st Contact Info) Description 06/12/2025 Patient Outreach POPULATION HEALTH [address], [address] [place] [address] Baylee Gracia, RN TCM Social [...] any time in the past 12 m [facility], were you homeless or living in a nursing home (including now)? No 06/03/2025 [facility] Utilities Answer Date [...] drink first t jacqueline in the morning (EYE-CANDY BAR ATTENDANT) to steady your nerves or to [...] Description 08/20/2025 12:00 PM EST Office Visit [facility] [place] [address] [facility], [address] [place] [address] Kaiden Harvey MD [address] [facility] [address] [place] [address] 11/06/2025 9:15 AM EST Office Visit [facility] [address], [address] [place] [address] Joanna Bartlett MD [address] [facility] [address] [place] [address] documented as of this encounter Visit Diagnoses Not on filedocumented in this encounter Additional Health Concerns Assessment Noted Time A Body Mass Index follow-up plan has been documented for the patient 06/10/2025 2:59 PM EDT documented as of this encounter Care Teams Wind Turbine Electrical Engineer Relationship Specialty Start Date End Date Rosemarie Riley APRN NPI: [id number] [place] [address] PCP - General 04/02/25 Haydee Mccloud Print Inspector Shaft Mechanic 06/03/25 06/25/25 Baylee Gracia, RN Registered Nurse 06/12/25 documented as of this encounter
--- OUTSIDE RECORDS SUMMARY | 2025-07-25 05:47 | XMS_ITS | Encounter Summary ---
Author Organization [facility] Address [address] [place] [address] Care Team Providers Care Pattern Cutter Name Role Phone RileyRosemarie beach Shanel WILSON Primary Care Provider [phone] Haydee Mccloud Unavailable Unavailable Baylee Gracia RN Unavailable Unavailable Reason for Visit * Reason Comments HRCM Encounter Details Date Type Department Care Team (Late st Contact Info) Description 06/25/2025 Patient Outreach POPULATION HEALTH [address], [address] [place] [address] Baylee Gracia, RN HRCM Social [...] and Family Not on file 06/25/2024 Attends [employer] Not on file 06/25 Active Member [...] any time in the past 12 m [facility], were you homeless or living in a fpc (including now)? No 06/03/2025 [facility] [...] drink first t jacqueline in the morning (EYE-CASE CHECKER) to steady your nerves or to get [...] Baylee Gracia - 06/25/2025 11:42 AM EDT [facility] Inpatient Review Reason for Note: Inpatient Admission Review Patient is at [facility] in [place] per Son. [facility] Nurse: Baylee Gracia 06/25/2025 11:43 AM documented in this encounter Plan of Treatment Upcoming Encounters Date Type Department Care Team (Late st Contact Info) Description 08/20/2025 12:00 PM EST Office Visit [facility] [place] [address] [facility], [address] [place] [address] Kaiden Harvey MD [address] [facility] [address] [place] [address] 11/06/2025 9:15 AM EST Office Visit [facility] [address] [facility], [address] [place] [address] Joanna Bartlett MD [address] [facility] [address] [place] [address] documented as of this encounter [...] Care Plan Fluid retention / overload No Gracia, Baylee J, RN Patient will maintain management of sodium [...] failure progression and care needs No Baylee Gracai RN documented as of this encounter Visit [...] documented as of this encounter Care Teams Pattern Cutter Relationship Specialty Start Date End Date Rosemarie Riley APRN [address] [place] [address] PCP - General 04/02/25 Haydee Mccloud Airport Operations Specialist Cyber Security Manager 06/03/25 06/25/25 Baylee Gracia RN Registered Nurse 06/12/25 documented as of this encounter
--- OUTSIDE RECORDS SUMMARY | 2025-07-25 05:47 | XMS_ITS | Encounter Summary ---
Author Organization [facility] Address [address] [place] [address] Care Team Providers Care Transplanter Name Role Phone RosemaryRosemarie Shanel WILSON Primary Care Provider [phone] Haydee Mccloud Unavailable Unavailable Encounter Details Date [...] were you homeless or living in a correction (including now)? No 06/03/2025 [facility] Utilities Answer Date Recorded [...] drink first t jacqueline in the morning (EYE-INSPECTOR WIRE ROPE) to steady your nerves or to get [...] Description 08/20/2025 12:00 PM EST Office Visit [facility] [place] [address] [facility], [address] [place] [address] Kaiden Harvey MD [address] [facility] [address] [place] [address] 11/06/2025 9:15 AM EST Office Visit [facility] [address], [address] [place] [address] Joanna Bartlett MD [address] [facility] [address] [place] [address] documented as of this encounter Visit Diagnoses Not on filedocumented in this encounter Additional Health Concerns Assessment Noted Time A Body Mass Index follow-up plan has been documented for the patient 06/10/2025 2:59 PM EDT documented as of this encounter Care Teams Transplanter Relationship Specialty Start Date End Date Rosemarie Riley APRN [address] [place] [address] PCP - General 04/02/25 Haydee Mccloud Quick Mixer Operator Operating Room Technician 06/03/25 06/25/25 documented as of this encounter
--- OUTSIDE RECORDS SUMMARY | 2025-07-25 05:47 | XMS_ITS | Encounter Summary ---
Author Organization [facility] Address [address] [place] [address] Care Team Providers Care Hvac Service Tech Name Role Phone RileyRosemarie beach Shanel WILSON Primary Care Provider [phone] Baylee Gracia RN Unavailable Unavailable Reason for Visit * Reason Comments HRCM Encounter Details Date Type Department Care Team ([facility] Contact Info) Description 07/16/2025 Patient Outreach POPULATION HEALTH [address] [facility] [place], [address] [place] [address] Baylee Gracia, RN HRCM Social [...] in a halfway (including now)? No 06/03/2025 [facility] Utilities Answer Date Recorded In the [...] drink first t jacqueline in the morning (EYE-DRILL INSTRUCTOR) to steady your nerves or to get [...] Upcoming Encounters Date Type Department Care Team ([facility] st Contact Info) Description 08/20/2025 12:00 PM EST Office Visit [facility] [place] [address] [facility], [address] [place] [address] Kaiden Harvey MD [address] [facility] [address] [place] [address] 11/06/2025 9:15 AM EST Office Visit [facility] [address] [facility], [address] [place] [address] Joanna Bartlett MD [address] [facility] [address] [place] [address] documented as of this encounter [...] documented as of this encounter Care Teams Hvac Service Tech Relationship Specialty Start Date End Date Rosemarie Riley APRN [address] [place] [address] PCP - General 04/02/25 Baylee Gracia RN Registered Nurse 06/12/25 documented as of this encounter
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
--- OUTSIDE RECORDS SUMMARY | 2025-07-25 05:47 | XMS_ITS | Encounter Summary ---
Author Organization [facility] Address [address] [place] [address] Care Team Providers Care Pipefitter Name Role Phone RosemaryRosemarie Shanel WILSON Primary Care Provider [phone] Haydee Mccloud Unavailable Unavailable Reason for Visit * Reason Comments Link Encounter Details Date Type Department Care Team ([facility] st Contact Info) Description 06/03/2025 Patient Outreach POPULATION HEALTH [address], [address] [place] [address] Haydee Mccloud Link Social History [...] Attends Club or Organization Meetings Not on boirs e 06/25/2024 Are you , , di [...] in a snf (including now)? No 06/03/2025 [facility] Utilities Answer Date Recorded In the [...] drink first t jacqueline in the morning (EYE-PLASTERER APPRENTICE) to steady your nerves or to [...] son by phone. Haydee Mccloud LINK Navigator [email or web address] documented in this encounter Plan of Treatment Upcoming Encounters Date Type Department Care Team (Late st Contact Info) Description 08/20/2025 12:00 PM EST Office Visit [facility] [place] [address] [facility], [address] [place] [address] Kaiden Harvey MD [address] [facility] [address] [place] [address] 11/06/2025 9:15 AM EST Office Visit [facility] [place] [address] , [address] [place] [address] Joanna Bartlett MD [address] [place] [address] documented as of this encounter Visit Diagnoses Not on filedocumented in this encounter Additional Health Concerns Assessment Noted Time A Body Mass Index follow-up plan has been documented for the patient 06/10/2025 2:59 PM EDT documented as of this encounter Care Teams Pipefitter Relationship Specialty Start Date End Date Rosemarie iRley APRN [address] [place] [address] PCP - General 04/02/25 Haydee Mccloud Rn Physician Office Medical Billing Supervisor 06/03/25 06/25/25 documented as of this encounter
--- OUTSIDE RECORDS SUMMARY | 2025-07-25 05:47 | XMS_ITS | Encounter Summary ---
Author Organization [facility] Address [address] [place] [address] Care Team Providers Care Construction Carpenter Name Role Phone RileyRosemarie beach Shanel WILSON Primary Care Provider [phone] Haydee Mccloud Unavailable Unavailable Baylee Gracia RN Unavailable Unavailable Reason for Visit * Reason Comments TCM Encounter Details Date Type Department Care Team (Late st Contact Info) Description 06/13/2025 Patient Outreach POPULATION HEALTH [address], [address] [place] [address] Baylee Gracia, RN TCM Social [...] any time in the past 12 m [facility], were you homeless or living in a senior care (including now)? No 06/03/2025 [facility] Utilities Answer Date Recorded In the [...] drink first t jacqueline in the morning (EYE-RETAIL FIELD SUPERVISOR) to steady your nerves or to get [...] Description 08/20/2025 12:00 PM EST Office Visit [facility] [place] [address] [facility] [facility], [address] [place] [address] Kaiden Harvey MD [address] [facility] [address] [place] [address] 11/06/2025 9:15 AM EST [facility] [address], [address] [place] [address] Joanna Bartlett MD [address] [facility] [address] [place] [address] documented as of this encounter Visit Diagnoses Not on filedocumented in this encounter Additional Health Concerns Assessment Noted Time A Body Mass Index follow-up plan has been documented for the patient 06/10/2025 2:59 PM EDT documented as of this encounter Care Teams Construction Carpenter Relationship Specialty Start Date End Date Rosemarie Riley APRN [address] [place] [address] PCP - General 04/02/25 Haydee Mccloud Delivery Crew Member Button Pusher 06/03/25 06/25/25 Baylee Gracia, RN Registered Nurse 06/12/25 documented as of this encounter
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
--- OUTSIDE RECORDS SUMMARY | 2025-07-25 05:47 | XMS_ITS | Encounter Summary ---
Author Organization Healthcare Address [address] [place] [address] Care Team Providers Care Spring Tier Name Role Phone RileyRosemarie beach Shanel WILSON Primary Care Provider [phone] Haydee Mccloud Unavailable Unavailable Baylee Gracia RN Unavailable Unavailable Encounter Details Date Type Department Care Team (Late st Contact Info) Description 06/17/2025 Orders Only [facility] Medicine Virtual Dept. [address] [place] [address] Mayra Rogers MD [address] [place] [address] Social History Tobacco Use Types Packs/Day Years [...] in the past 12 m [facility], were you homeless or living in a long-term (including now)? No 06/03/2025 [facility] Utilities Answer Date Recorded In the past 12 months has th e [employer], gas, oil, or water company threatened to [...] drink first t jacqueline in the morning (EYE-REMOTE MEDICAL CODER) to steady your nerves or to get [...] Description 08/20/2025 12:00 PM EST Office Visit [facility] [place] [address], [address] [place] [address] Kaiden Harvey MD [address] [facility] [address] [place] [address] 11/06/2025 9:15 AM EST Office Visit [facility] [address], [address] [place] [address] Joanna Bartlett MD [address] [facility] [address] [place] [address] documented as of this encounter Visit Diagnoses Not on filedocumented in this encounter Additional Health Concerns Assessment Noted Time A Body Mass Index follow-up plan has been documented for the patient 06/10/2025 2:59 PM EDT documented as of this encounter Care Teams Spring Tier Relationship Specialty Start Date End Date Rosemarie Riley APRN NPI: [id number] [place] [address] PCP - General 04/02/25 Haydee Mccloud Bar Captain Carpenter Repair 06/03/25 06/25/25 Byalee Gracia, RN Registered Nurse 06/12/25 documented as of this encounter
--- OUTSIDE RECORDS SUMMARY | 2025-07-25 05:48 | XMS_ITS | Encounter Summary ---
Author Organization [facility] Address [address] [place] [address] Care Team Providers Care Core Driller Name Role Phone RileyRosemarie beach STEVE Primary Care Provider [phone] Encounter Details Date Type Department Care Team [...] any time in the past 12 m [facility], were you homeless or living in a prison (including now)? No 06/03/2025 [facility] Utilities Answer Date Recorded In the [...] drink first t jacqueline in the morning (EYE-CYBER SECURITY ADMINISTRATOR) to steady your nerves or to get [...] Quintero RN 6. Suicidal Behavior (Lifetime) No 5 9:00 PM EDT Nicolette Quintero RN documented as of this encounter Plan of Treatment Upcoming Encounters Date Type Department Care Team (Late st Contact Info) Description 08/20/2025 12:00 PM EST Office Visit [facility] [place] [address], [address] [place] [address] Kaiden Harvey MD [address] [place] [address] 11/06/2025 9:15 AM EST Office Visit [facility] [place] [address], [address] [place] [address] Joanna Bartlett MD [address] [facility] [address] [place] [address] documented as of this encounter Visit Diagnoses Not on filedocumented in this encounter Additional Health Concerns Assessment Noted Time A Body Mass Index follow-up plan has been documented for the patient 06/10/2025 2:59 PM EDT documented as of this encounter Care Teams Core Driller Relationship Specialty Start Date End Date Rosemarie Riley APRN [address] [place] [address] PCP - General 04/02/25 documented as of this encounter
--- OUTSIDE RECORDS SUMMARY | 2025-07-25 05:48 | XMS_ITS | Encounter Summary ---
Author Organization [facility] Address [address] [place] [address] Care Team Providers Care Thermostat Machine Tender Name Role Phone RileyRosemarie beach Shanel WILSON Primary Care Provider [phone] Encounter Details Date Type Department Care Team [...] and Family Not on file 06/25/2024 Attends [employer] Not on file 06/25 Active Member [...] drink first t jacqueline in the morning (EYE-RESIDENTIAL DOOR INSTALLER) to steady your nerves or to get rid of a hangover? 0 06/21/2024 CAGE Questionnaire Score 0 024 Utilities Answer Date Recorded In the past 12 months has th e [employer], gas, oil, or water company threatened to [...] EST Office Visit [facility] [place] [address] [facility] [address] [place] [address] Kaiden Harvey MD [address] [facility] [address] [place] [address] 11/06/2025 9:15 AM EST Office Visit [facility] [place] [address], [address] [place] [address] Joanna Bartlett MD [address] [facility] [address] [place] [address] documented as of this encounter Visit Diagnoses Not on filedocumented in this encounter Additional Health Concerns Infection Onset Date Last Indicated Resolved Time COVID-19 Rule-Out 06/01/2025 06/01/2025 06/01/2025 7:59 PM EDT Assessment Noted Time A Body Mass Index follow-up plan has been documented for the patient 06/10/2025 2:59 PM EDT documented as of this encounter Care Teams Thermostat Machine Tender Relationship Specialty Start Date End Date Rosemarie Riley APRN [facility] [place] [address] PCP - General 04/02/25 documented as of this encounter
--- OUTSIDE RECORDS SUMMARY | 2025-07-25 05:48 | XMS_ITS | Referral Summary ---
Author Organization [employer] ([place], [place], [place], [place], [place]) Address [address] [place] [address] Care Team Providers Care Physiatrist Name Role Phone Osmani Becker MD Primary Care Provider [phone] Mindy Mckeon MD Unavailable Encounters Date Type Department Care Team Description 06/23/2025 6:27 PM EDT - 06/29/2025 3:55 PM EDT Hospital Encounter [address] Medical Telemetry Unit 1 [place] [address] Brian Banuelos MD Hughes, Isaac, PA-C [place], Omar, [...] (2 mg total) by mouth nightly. Active oxyCODONE-aceta minophen (PERCOCET) 10-325 mg per tablet Take 1 [...] (10 mg total) by mouth daily. Active diphenoxylate-a tropine (LOMOTIL) 2.5-0.025 mg per tablet Take 1 [...] after 1st dose. 90 tablet 06/28/20 25 026 Active ipratropium-alb uteroL (DUO-NEB) 0.5 mg-3 mg(2.5 mg base)/3 mL nebulizer solution Inhale 3 mLs by nebulization every 6 (six) hours as needed for wheezing for up to 30 days. 300 mL 06/28/20 25 025 Active hydrALAZINE (APRESOLINE) 25 MG tablet Take 3 tablets (75 mg total) by mouth 4 (four) times daily for 30 days Look-alike/[place] nd-alike medication. 360 tablet 06/28/20 25 Active aspirin 81 MG chewable tablet Take 1 tablet (81 mg total) by mouth daily for 30 days. 30 tablet 06/28/20 25 Active hydrALAZINE (APRESOLINE) 25 MG tablet Take 3 tablets (75 mg total) by mouth 3 (three) times daily. Discontin ued(Stop Taking at Discharge ) aspirin 81 MG EC tablet Take 1 tablet (81 mg total) by mouth daily. Discontin ued(Stop Taking at Discharge ) rosuvastatin (Crestor) 10 MG tablet Take 1 tablet (10 mg total) by mouth daily for 30 days. 30 tablet 06/28/20 25 Discontin ued(Stop Taking at Discharge ) Active Problems Problem Noted Date Diagnosed Date [...] Date Record ed How often does anyone, inclu ding family and friends, physically hurt you? Never [...] Do you speak a language other than Estonian at ho me? No 06/23/2025 Do you want help with [...] Author No 02/03/2024 1:06 PM MISTYT Traci Candelarai RN * Are you blind or do [...] GLUCOSE POC Routine 06/27/2025 5:14 AM EDT [facility] CBC SCAN Routine 06/27/2025 3:06 AM EDT MAGNESIUM Routine 06/27/2025 3:06 AM EDT COMPREHENSIVE METABOLIC PANEL Routine 06/27/2025 3:06 AM EDT CBC W/ AUTO DIFF Routine 06/27/2025 3:06 AM EDT PTT HEPARIN PROTOCOL Routine 06/26/2025 11:57 PM EDT NOVA GLUCOSE POC Routine 06/26/2025 8:12 PM EDT PTT HEPARIN PROTOCOL Routine 06/26/2025 6:24 PM EDT NOVA GLUCOSE POC Routine 06/26/2025 10:5 6 AM EDT [facility] CBC SCAN Routine 06/26/2025 8:11 AM EDT CBC W/ AUTO DIFF Routine 06/26/2025 8:11 AM EDT PTT HEPARIN PROTOCOL Routine 06/26/2025 8:11 AM EDT NOVA GLUCOSE POC Routine 06/26/2025 5:09 AM EDT [facility] CBC SCAN Routine 06/26/2025 1:18 AM EDT [...] HEPARIN PROTOCOL Routine 06/25/2025 7:47 AM EDT [facility] CBC SCAN Routine 06/25/2025 7:46 AM EDT CBC W/ AUTO DIFF Routine 06/25/2025 7:46 AM EDT NOVA GLUCOSE POC Routine 06/25/2025 4:59 AM EDT [facility] CBC SCAN Routine 06/24/2025 9:22 PM EDT PT/INR, PTT STAT 06/24/2025 9:22 PM EDT CBC W/ AUTO DIFF STAT 06/24/2025 9:22 PM EDT PTT HEPARIN PROTOCOL Routine 06/24/2025 9:22 PM EDT NOVA GLUCOSE POC Routine 06/24/2025 8:40 PM EDT XR CHEST PA AND LATERAL STAT 06/24/2025 2:15 PM EDT US THORACENTESIS LT Routine 06/24/2025 2 :09 PM EDT CYTOLOGY ([facility]) AP Routine 06/24/2025 2:06 PM EDT Mass of lung Pleural effusion on right BODY FLUID/CSF- PATH REVIEW LAB ONLY Routine 06/24/2025 2:06 PM EDT Mass of lung Pleural effusion on right [facility] DIFFERENTIAL, BODY FLUID Routine 06/24/2025 2:06 PM [...] METABOLIC PANEL Routine 06/24/2025 6:33 AM EDT [facility] CBC SCAN Routine 06/24/2025 6:32 AM EDT [...] FS_MODEL_IP_ECG 12-LEAD STAT 06/23/2025 10:44 PM EDT [facility] CBC SCAN Routine 06/23/2025 8:26 PM EDT [...] 10.0 K/ L 06/29/2025 10:47 AM EDT [facility] RBC 3.10(L) 3.93 - 5.22 M/ L 06/29/2025 10:47 AM EDT [facility] Hemoglobin 8.8(L) 11.2 - 15.7 GM/DL 06/29/2025 10:47 AM EDT [facility] Hematocrit 29.2(L) 34.1 - 44.9 % 06/29/2025 10:47 AM EDT [facility] MCV 94 79 - 95 fL 06/29/2025 10:47 AM EDT [facility] MCH 28.4 25.6 - 32.2 pg 06/29/2025 10:47 AM EDT [facility] MCHC 30.1(L) 32.2 - 35.5 GM/DL 06/29/2025 10:47 AM EDT [facility] RDW 18.5(H) 11.7 - 14.4 % 06/29/2025 10:47 AM EDT [facility] Platelets 51(L) 140 - 375 K/CU MM 06/29/2025 10:47 AM EDT [facility] MPV 11.1 9.4 - 12.3 fL 06/29/2025 10:47 AM EDT [facility] % Neutros 72(H) 34 - 71 % 06/29/2025 10:47 AM EDT [facility] % Lymphs 16(L) 19 - 52 % 06/29/2025 10:47 AM EDT [facility] % Monos 7 5 - 13 % 06/29/2025 10:47 AM EDT [facility] % Eos 4 1 - 6 % 06/29/2025 10:47 AM EDT [facility] % Baso 1 0 - 1 % 06/29/2025 10:47 AM EDT [facility] NRBC Absolute <0.01 0 - 0.012 K/ul 06/29/2025 10:47 AM EDT [facility] # Neutros 3.78 1.56 - 6.13 K/ L 06/29/2025 10:47 AM EDT [facility] # Lymphs 0.81(L) 1.18 - 3.74 K/ L 06/29/2025 10:47 AM EDT [facility] # Monos 0.37 0.24 - 0.86 K/ L 06/29/2025 10:47 AM EDT [facility] # Eos 0.22 0.04 - 0.36 K/ L 06/29/2025 10:47 AM EDT [facility] # Baso 0.04 0.01 - 0.08 K/ L 06/29/2025 10:47 AM EDT [facility] % Imm Grans 0.40 0.01 - 0.43 % 06/29/2025 10:47 AM EDT [facility] # IG <0.03 0.00 - 0.03 K/uL 06/29/2025 10:47 AM EDT [facility] Blood Venipuncture / Unknown 06/29/2025 10:30 AM EDT 06/29/2025 10:[address] [facility] LABORATORY - 06/29/2025 10:47 AM EDT When [...] ORDERABLES Final Resul t Performing Organization Address City/[facility]/ZIP Co de Phone Number [facility] [address] [phone] * (ABNORMAL) Glucose, Nova Meter (06/29/2025 6:06 AM EDT) Only the most recent of19 resultswithin the time period is included. [facility] POC-GLUCOSE 181(H) 70 - 110 mg/dL 06/29/2025 6:07 AM EDT [facility] Comment: In the event of poor peripheral blood flow, venous or arterial blood should be used due to the potential of erroneous results. Notified Nurse RBV Mainframe Architect [id number] 06/29/2025 6:07 AM EDT [facility] Blood WHOLE BLOOD / Unknown 06/29/2025 6:06 AM EDT 06/29/2025 6:[address] [facility] LABORATORY - 06/29/2025 6:07 AM EDT Mainframe Architect ID is - [id number] Mundo Díaz MD POINT OF CARE TEST ORDERABLES Fi nal Result Performing Organization Address City/[facility]/ZIP Co de Phone Number [facility] [address] [phone] * Magnesium (06/28/2025 2:34 AM EDT) Only the most recent of3 resultswithin the time period is included. [facility] Magnesium 1.7 1.6 - 2.6 mg/dL 06/28/2025 3:14 AM EDT [facility] Blood Venipuncture / Unknown 06/28/2025 2:34 AM EDT 06/28/2025 2:50 AM EDT us Mundo Díaz MD LAB BLOOD ORDERABLES Final Resul t [facility] [address] [phone] * (ABNORMAL) Comprehensive metabolic panel (06/28/2025 2:34 AM EDT) Only the most recent of5 resultswithin the time period is included. Sodium 140 136 - 145 meq/L 06/28/2025 3:14 AM EDT [facility] Potassium 4.5 3.4 - 5.1 meq/L 06/28/2025 3:14 AM T [facility] Chloride 101 98 - 112 meq/L 06/28/2025 3:14 AM EDT [facility] CO2 25 22 - 29 meq/L 06/28/2025 3:14 AM EDT [facility] Calcium 7.9(L) 8.4 - 10.2 mg/dL 06/28/2025 3:14 AM [facility] Glucose 130(H) 74 - 100 mg/dL 06/28/2025 3:14 AM [facility] BUN 41.0(H) 9.8 - 20.1 mg/dL 06/28/2025 3:14 AM EDT [facility] Creatinine 2.43(H) 0.57 - 1.11 mg/dL 06/28/2025 3:14 AM [facility] BUN/Creatinine 17 8 - 20 06/28/2025 3:14 AM [facility] eGFR (mL/min/1.73m2) 23(L) >=60 mL/min/1. 73m2 06/28/2025 3:14 AM [facility] Comment:ESTIMATED GFR IS NOT ACCURATE CREATININE CLEARANCE IN PREDICTING GLOMERULAR FILTRATION RATE. ESTIMATED GFR IS NOT APPLICABLE FOR DIALYSIS PATIENTS. Albumin 2.3(L) 3.5 - 5.0 g/dL 06/28/2025 3:14 AM EDT [facility] Alkaline Phosphatase 182(H) 40 - 150 U/L 06/28/2025 3:14 AM EDT [facility] ALT 7 <=34 U/L 06/28/2025 3:14 AM EDT [facility] Comment: ALT2 reagent used for testing does not contain P5P supplementation and therefore may miss ALT elevations in patients with B6 deficiency. This population may be as high as 10% in the [place], with risk factors including malabsorption, drug interactions, and alcoholic hepatitis. AST 15 11 - 34 U/L 06/28/2025 3:14 AM EDT [facility] Comment: AST2 reagent used for testing does not contain P5P supplementation and therefore may miss AST elevations in patients with B6 deficiency. This population may be as high as 10% in the [place], with risk factors including malabsorption, drug interactions, and alcoholic hepatitis. Total Bilirubin 0.7 0.2 - 1.2 mg/dL 06/28/2025 3:14 AM EDT [facility] Protein, Total 5.9(L) 6.4 - 8.3 g/dL 06/28/2025 3:14 AM EDT [facility] Globulin 3.6 2.5 - 4.1 g/dL 06/28/2025 3:14 AM T [facility] Anion Gap 19(H) 4 - 12 06/28/2025 3:14 AM T [facility] A/G Ratio 0.6(L) 0.7 - 1.9 06/28/2025 3:14 AM EDT [facility] Osmolality Calc 291.3 mOsm/kg 3:14 AM T [facility] Blood Venipuncture / Unknown 06/28/2025 2:34 AM EDT 06/28/2025 2:50 AM EDT us Mundo Díaz MD LAB BLOOD ORDERABLES Final Resul t [facility] [address] [phone] * (ABNORMAL) Hemoglobin and hematocrit (06/27/2025 7:53 PM EDT) Only the most recent of2 resultswithin the time period is included. Hemoglobin 8.7(L) 11.2 - 15.7 GM/DL 06/27/2025 8:14 PM EDT [facility] Hematocrit 28.7(L) 34.1 - 44.9 % 06/27/2025 8:14 PM EDT [facility] Blood Venipuncture / Unknown 06/27/2025 7:53 PM EDT 06/27/2025 8:08 PM EDT us Mundo Díaz MD LAB BLOOD ORDERABLES Final Resul t Performing Organization Address [facility] Co de Phone Number [facility] [address] [phone] * Transfuse RBC (06/27/2025 2:38 PM EDT) Only the most recent of2 resultswithin the time period is included. us Mundo Díaz MD FS_MODEL_IP_BLOOD TRANSFUSION OR DERABLES Final Result * (ABNORMAL) PTT Heparin Protocol (06/27/2025 10:07 AM EDT) Only the most recent of12 resultswithin the time period is included. PTT Heparin 29.7(L) 45 - 65 seconds 06/27/2025 11:08 AM EDT [facility] Blood Venipuncture / Unknown 06/27/2025 10:07 AM EDT 06/27/2025 10:43 AM EDT us Mundo Díaz MD LAB BLOOD ORDERABLES Final Resul t Performing Organization Address City/[facility] Co de Phone Number [facility] [address] [phone] * Prepare RBC: 1 Units (06/27/2025 9:47 AM EDT) Only the most recent of2 resultswithin the time period is included. Issue Date/Time [id number] [facility] BLOOD BANK ([place]) Product Identification Red Blood Cells [facility] ([place]) Product Code [id number] [facility] ([place]) Status Information TRANSFUSED [facility] ([place]) Unit Number [id number] [facility] ([place]) Blood Type 9500 [facility] ([place]) Cross Match Results Compatible [facility] ([place]) us Mundo Díaz MD FS_MODEL_IP_BLOOD BANK PRODUCT O RDERABLES Final Result [facility] ([place]) [address] [place] [id number], [facility] [phone] * (ABNORMAL) CBC Scan (06/27/2025 3:06 AM EDT) Only the most recent of7 resultswithin the time period is included. Platelet Estimate Decreased (A) Adequate 06/27/2025 4:48 AM EDT [facility] RBC Morphology abnormal( A) Normal 06/27/2025 4:48 AM EDT [facility] Anisocytosis 2+ 06/27/2025 4:48 AM EDT [facility] Hypochromia 1+ 06/27/2025 4:48 AM EDT [facility] Polychromasia 1+ 06/27/2025 4:48 AM EDT [facility] Macrocytes 1+ 06/27/2025 4:48 AM EDT [facility] Ovalocytes 1+ 06/27/2025 4:48 AM EDT [facility] Elliptocytes 1+ 06/27/2025 4:48 AM EDT [facility] Blood Venipuncture / Unknown 06/27/2025 3:06 AM EDT 06/27/2025 3:43 AM EDT us Mundo Díaz MD LAB BLOOD ORDERABLES Final Resul t Performing Organization Address City/[facility] Co de Phone Number [facility] [address] [phone] * (ABNORMAL) Phosphorus (06/26/2025 1:18 AM EDT) Phosphorus 5.1(H) 2.5 - 4.5 mg/dL 06/26/2025 1:45 AM EDT [facility] Blood Venipuncture / Unknown 06/26/2025 1:18 AM EDT 06/26/2025 1:21 AM EDT Mundo Díaz MD LAB BLOOD ORDERABLES Final Resul t Performing Organization Address [facility] Co de Phone Number [facility] [address] [phone] * (ABNORMAL) Prothrombin time/INR (06/25/2025 10:26 AM EDT) Only the most recent of2 resultswithin the time period is included. Protime 12.6(H) 9.0 - 12.0 seconds 06/25/2025 12:47 PM EDT [facility] INR 1.15(H) 0.80 - 1.10 06/25/2025 12:47 PM EDT [facility] Comment: Recommended therapeutic ranges using [...] ORDERABLES Final Resul t Performing Organization Address [facility] Co de Phone Number [facility] [address] [phone] * Type and Screen (06/25/2025 9:11 AM EDT) ABO/Rh O Positive 06/25/2025 9:20 AM EDT [facility] BLOOD [facility]ANK ([place]) Antibody Screen Negative 06/25/2025 9:20 AM EDT [facility] ([place]) HISTCHK HIST CHECK PERFORMED 06/25/2025 9:20 AM EDT [facility] ([place]) Blood Venipuncture / Unknown 06/25/2025 9:11 AM EDT 06/25/2025 9:20 AM EDT us Mundo Díaz MD [facility] BLOOD BANK TEST ORDERABLES F inal Result [facility] ([place]) 1 [place] [address], [facility] [phone] * (ABNORMAL) PT/INR, PTT (06/24/2025 9:22 PM EDT) aPTT 37.3(H) 22.0 - 32.0 seconds 06/24/2025 9:49 PM EDT [facility] Protime 12.4(H) 9.0 - 12.0 seconds 06/24/2025 9:49 PM EDT [facility] INR 1.13(H) 0.80 - 1.10 06/24/2025 9:49 PM EDT [facility] Blood Venipuncture / Unknown 06/24/2025 9:22 PM EDT 06/24/2025 9:32 PM EDT us Vlad Waters PA-C LAB BLOOD ORDERABLES Final Res ult [facility] [address] [place] [address], [facility] [phone] * XR chest 2 views (06/24/2025 2:15 [...] pleural effusion. ATTENDING RADIOLOGIST: Dr. Rebolledo. PHYSICIAN SHELL MOLD BONDER: Kalyan Wisdom PA-C. TECHNIQUE: Informed consent was [...] pleural effusion. ATTENDING RADIOLOGIST: Dr. Rebolledo. PHYSICIAN SHELL MOLD BONDER: Kalyan Wisdom PA-C. TECHNIQUE: Informed consent was [...] Rebolledo. Transcribed by Kalyan Wisdom PA-C us Brian Banuelos MD [facility] ORDERABLES Final Result * DIFFERENTIAL, BODY FLUID (06/24/2025 2:06 PM EDT) Neutrophils Fluid 13 0 - 25 % 025 5:37 PM EDT [facility] Lymphocytes Fluid 30 % 025 5:37 PM EDT [facility] Monocytes Fluid 9 0 - 65 % 5:37 PM EDT [facility] Unidentified Mononuclear Cells BF 48 0 - 0 % 06/24/2025 5:37 PM EDT [facility] Pleural Fluid STRUCTURE OF LEFT PLEURAL CAVITY / Unknown 06/24/2025 2:06 PM EDT 06/24/2025 3:50 PM EDT Brian Banuelos MD BODY FLUIDS AND STOOLS ORDERABLE S Final Result Performing Organization Address [facility] Co de Phone Number [facility] [address] [phone] * [facility] Non-Garment Alteration Examiner Cytology (06/24/2025 2:06 PM EDT) AP RESULT See Note: PATHOLOGY AND CYTOLOGY LABORATORY Comment: FINAL NON-FAREBOX REPAIRER CYTOLOGY REPORT DIAGNOSIS: A. BODY FLUID, LEFT, [...] CAVITY / Unknown 06/24/2025 2:06 PM EDT Brian Banuelos MD PATHOLOGY/CYTOLOGY ORDERABLES Fi nal Result Performing Organization Address [facility]/ZIP Co de Phone Number [facility] [address] * Body Fluid/CSF - Path Review ([place]) (06/24/2025 2:06 PM EDT) Differential Comment Macrophages and blood. No malignancy seen. Manoj Cai MD 06-24-2025 06/24/2025 6:10 PM EDT [facility] Pleural Fluid STRUCTURE OF LEFT PLEURAL CAVITY / Unknown 06/24/2025 2:06 PM EDT 06/24/2025 3:50 PM EDT us Brian Banuelos MD BODY FLUIDS AND STOOLS ORDERABLE S Final Result Performing Organization Address [facility]/ZIP Co de Phone Number [facility] [address] [phone] * Glucose, body fluid (06/24/2025 2:06 PM EDT) Glucose, Body Fluid 119 See Comment mg/dL 06/24/2025 5:37 PM EDT [facility] BODY FLUID TYPE Pleural 06/24/2025 5:37 PM EDT [facility] Pleural Fluid STRUCTURE OF LEFT PLEURAL CAVITY / Unknown 06/24/2025 2:06 PM EDT 06/24/2025 3:50 PM EDT Narrative [facility] - 06/24/2025 5:37 PM EDT This test has been modified from the administrative support specialist's instructions and its performance characteristics were determined by the laboratory. The reference intervals and other method performance specifications are unavailable for this test. It is recommended to interpret body fluid concentrations in comparison with the corresponding serum or plasma concentrations and to integrate test results into the clinical context. us Brian Banuelos MD BODY FLUIDS AND STOOLS ORDERABLE S Final Result Performing Organization Address [facility] Co de Phone Number [facility] [address] [place] [address], [facility] [phone] * Body Fluid Culture + Gram Stain (06/24/2025 2:06 PM EDT) Result No growth 06/27/2025 7:33 AM EDT [facility] Gram Stain Result No organisms seen 06/27/2025 7:33 AM EDT [facility] Gram Stain Result Rare WBCs 06/27/2025 7:33 AM EDT [facility] Pleural Fluid STRUCTURE OF LEFT PLEURAL CAVITY / Unknown 06/24/2025 2:06 PM EDT 06/24/2025 3:[address] [facility] LABORATORY - 06/27/2025 7:33 AM EDT Specimen Description: left pleural fluid us Brian Banuelos MD MICROBIOLOGY - GENERAL ORDERABLE S Final Result [facility] [address] [phone] * Body fluid cell count with differential (06/24/2025 2:06 PM EDT) Appearance Clear Clear 06/24/2025 5:37 PM EDT [facility] Color Yellow 06/24/2025 5:37 PM EDT [facility] BODY FLUID TYPE Pleural 5:37 PM EDT [facility] Auto WBC/Nucleated Cells BF 253 /uL 06/24/2025 5:37 PM EDT [facility] Comment: Please refer to specific WBC/Nucleated Cell Count Body Fluid reference ranges below: For Pleural: 0-1000 Peritoneal: 0-1000 Pericardial:0-1000 Synovial: 0-200 Auto RBC BF 3,000 /uL 06/24/2025 5:37 PM EDT [facility] Comment: Please refer to specific RBC Cell Count Body Fluid reference ranges below: Pleural: 0-10,000 Peritoneal: 0-10,000 Pericardial:0-10,000 Synovial:0-30 Pleural Fluid STRUCTURE OF LEFT PLEURAL CAVITY / Unknown 06/24/2025 2:06 PM EDT 06/24/2025 3:50 PM EDT Narrative [facility] - 06/24/2025 5:37 PM EDT There is normally no readily obtainable pleural, peritoneal and pericardial fluid, hence normal elements for these potential fluids are not defined. us Brian Banuelos MD BODY FLUIDS AND STOOLS ORDERABLE S Final Result Performing Organization Address [facility]/ZIP Co de Phone Number [facility] [address] [phone] * Protein, body fluid (06/24/2025 2:06 PM EDT) Protein, Fluid 1.5 See Comment g/dL 06/24/2025 5:37 PM EDT [facility] BODY FLUID TYPE Pleural 06/24/2025 5:37 PM EDT [facility] Pleural Fluid STRUCTURE OF LEFT PLEURAL CAVITY / Unknown 06/24/2025 2:06 PM EDT 06/24/2025 3:[address] [facility] LABORATORY - 06/24/2025 5:37 PM EDT This test has been modified from the administrative support specialist's instructions and its performance characteristics were determined by the laboratory. The reference intervals and other method performance specifications are unavailable for this test. It is recommended to interpret body fluid concentrations in comparison with the corresponding serum or plasma concentrations and to integrate test results into the clinical context. us Brian Banuelos MD BODY FLUIDS AND STOOLS ORDERABLE S Final Result Performing Organization Address [facility]/ZIP Co de Phone Number [facility] [address] [phone] * Lactate dehydrogenase (LDH), body fluid (06/24/2025 2:06 PM EDT) LDH, Fluid 67 See Comment U/L 06/24/2025 5:37 PM EDT [facility] BODY FLUID TYPE Pleural 06/24/2025 5:37 PM EDT [facility] Pleural Fluid STRUCTURE OF LEFT PLEURAL CAVITY / Unknown 06/24/2025 2:06 PM EDT 06/24/2025 3:[address] [facility] LABORATORY - 06/24/2025 5:37 PM EDT This test has been modified from the administrative support specialist's instructions and its performance characteristics were determined by the laboratory. The reference intervals and other method performance specifications are unavailable for this test. It is recommended to interpret body fluid concentrations in comparison with the corresponding serum or plasma concentrations and to integrate test results into the clinical context. us Brian Banuelos MD BODY FLUIDS AND STOOLS ORDERABLE S Final Result [facility] [address] [place], [place] [address] [phone] * ECHO COMPLETE (DOPPLER / COLOR) W CONTRAST (06/24/2025 8:00 AM EDT) Anatomical Region Laterality Modality Heart Vascular Ultraso und 06/24/2025 8:38 AM EDT Narrative 06/24/2025 8:03 PM EDT TRANSTHORACIC ECHOCARDIOGRAPHY REPORT Demographics Patient Name: VITE VORA : 1970 Age: 55 year(s) Corporate ID Number: [id number] Gender Female Marketing Support Specialist: Familia Garcia, Height: 67 inches [facility] Referring Physician: ADEBAYO TORRES Weight: 132 pounds Interpreting MINDY MCKEON MD BMI: 20.67 kg/m^2 Physician: Date of Service: 06/24/2025 Blood Pressure: 154/92 mmHg Room Number: 566 Type of Study: TTE procedure: ECHO COMPLETE (DOPPLER / COLOR) W OR WO CONTRAST. Patient Status: ALICE Study Location: [facility] Quality: Adequate visualization History/Tech Notes: Indication: shortness [...] 0.43 m/s E/A ratio: 2.58 m/s Volume [id number] LV length: 8.52 cm ml Volume qmqyhvae76.42 ml LVOT diameter: 1.7 cm Normal sized [...] Valve TR velocity: 4.33 m/s TR gradient: 75.15016 mmHg Estimated RAP: 15 mmHg RVSP: 90.15 [...] 1970 Age: 55 year(s) Corporate ID Number: [id number] Gender Female Marketing Support Specialist: Familia Garcia, Height: 67 inches [facility] Referring Physician: ADEBAYO BRIAN Weight: 132 pounds Interpreting MINDY MCKEON MD BMI: 20.67 kg/m^2 Physician: Date of Service: 06/24/2025 Blood Pressure: 154/92 mmHg Room Number: 566 Type of Study: TTE procedure: ECHO COMPLETE (DOPPLER / COLOR) W OR WO CONTRAST. Patient Status: ALICE Study Location: [facility] Quality: Adequate visualization History/Tech Notes: Indication: shortness [...] .01 LV length: 8.52 cm ml Volume dkbgabtj32.42 ml LVOT diameter: 1.7 cm Normal sized [...] Valve TR velocity: 4.33 m/s TR gradient: 75.00780 mmHg Estimated RAP: 15 mmHg RVSP: 90.15 [...] enhancing agent administered for endocardial border definition. Brian Banuelos MD CV ECHO ORDERABLES Final Result * (ABNORMAL) PROBNP (06/24/2025 6:33 AM EDT) [facility] ProBNP (pg/mL) >70,000(H) 16 - 334 pg/mL 06/24/2025 7:17 AM EDT [facility] Blood Venipuncture / Unknown 06/24/2025 6:33 AM EDT 06/24/2025 6:36 AM EDT Narrative [facility] - 06/24/2025 7:17 AM EDT As of February 07, 2025: NT-ProBNP is a new test on our [employer] Immunoassay analyzer. Please review new age and gender specific reference ranges. Vlad Waters PA-C LAB BLOOD ORDERABLES Final Res ult [facility] [address] [place] [address], [facility] [phone] * Hepatitis panel, acute (06/24/2025 6:33 AM EDT) Pathologist [facility] Hep A IgM Nonreactive Nonreactive 06/24/2025 11:46 AM EDT [facility] Hep B C IgM Nonreactive Nonreactive 06/24/2025 11:46 AM EDT [facility] Hepatitis B surface antigen Nonreactive Nonreactive 06/24/2025 11:46 AM EDT [facility] Hepatitis C Ab Nonreactive Nonreactive 06/24/20 11:46 AM EDT [facility] Comment: [employer] recommends confirmatory testing on all reactives and equivocals. Blood Venipuncture / Unknown 06/24/2025 6:33 AM EDT 06/24/2025 6:36 AM EDT us Blaine Moreno MD LAB BLOOD ORDERABLES Final Resul t [facility] [address] [phone] * (ABNORMAL) High Sensitivity Troponin I (06/24/2025 6:32 AM EDT) Only the most recent of2 resultswithin the time period is included. Troponin I High Sensitivity (pg/mL) 2,424.1(H H) <=14 pg/mL 06/24/2025 7:04 AM EDT [facility] Blood Venipuncture / Unknown 06/24/2025 6:32 AM EDT 06/24/2025 6:36 AM EDT Narrative [facility] - 06/24/2025 7:04 AM EDT Applicable to [facility] only. Effective December 11 the lab will begin using a new chemistry analyzer. HsTroponin methodology, reference ranges and critical values have changed. us Vlad Waters PA-C LAB BLOOD ORDERABLES Final Res ult [facility] [address] [phone] * XR chest AP portable (06/23/2025 10:57 [...] ATRIAL RATE (MCT) 68 BPM GE MUSE IL Interval 140 ms GE MUSE QRS-INTERVAL (MSEC) 116 ms GE MUSE QT Interval 440 ms GE MUSE QTC Interval 467 ms GE MUSE P [place] 89 degrees GE MUSE R AXIS (MCT) 118 degrees GE MUSE T Wave [place] -57 degrees GE MUSE [place] Diagnosis Normal sinus rhythm Right axis deviation [...] Final Result from Last 3 Months Insurance [id number] (Home) [address] [place] [address] GENERIC MEDICARE REPLACEMENT MEDICARE PART A B [facility] MEDIC[facility] HMO Advance Directives For more information, please contact: [phone] * DNR - Limited Additional Intervention (Latest [...] 1:36 AM 04/16/2024 12:42 PM Care Teams Physiatrist Relationship Specialty Start Date End Date Osmani Becker MD [address] [place] [address] PCP - General General Internal Medicine 02/02/24 Mindy Mckeon MD [address] [facility], [facility] [address] [place] [address] Interventional Cardiology 06/27/25
--- OUTSIDE RECORDS SUMMARY | 2025-07-25 05:49 | XMS_ITS | Encounter Summary ---
Author Organization [facility] Address [address] [place] [address] Care Team Providers Care Wildlife Conservationist Name Role Phone RosemaryRosemarie Shanel WILSON Primary Care Provider [phone] Baylee Gracia RN Unavailable Unavailable Encounter Details Date Type Department Care Team (Late st Contact Info) Description 07/22/2025 Lab Requisition [facility] [address] [place] [address] Kyara Gonzales PA [address] [place] [id number] Encounter for general adult medical examination without abnormal findings Social History Tobacco Use Types Packs/Day Years [...] in the [facility] were you homeless or living in a mcc (including now)? No 06/03/2025 [facility] Utilities Answer Date Recorded In the past 12 months has th e [employer], gas, oil, or water [employer] threatened to shut off services in your [...] drink first t jacqueline in the morning (EYE-MICROFILM CLERK) to steady your nerves or to [...] Description 08/20/2025 12:00 PM EST Office Visit [facility] [place] [address], [address] [place] [address] Kaiden Harvey MD [address] [place] [address] 11/06/2025 9:15 AM EST Office Visit [facility] [address] [facility], [address] [place] [address] Joanna Bartlett MD [address] [place] [address] documented as of this encounter [...] Procedure Name Priority Date/Time Associated Diagnosis Comments TOTAL PROTEIN, PLEURAL FLUID STAT 07/22/2025 10:15 AM EST Encounter for general adult medical examination without abnormal findings LACTATE DEHYDROGENASE TOTAL, BODY FLUID (SO) STAT 07/22/2025 10:15 AM EST Encounter for general adult medical examination without abnormal findings LACTATE DEHYDROGENASE, PLEURAL FLUID Routine 07/22/2025 10:15 AM EST Encounter for general adult medical examination without abnormal findings GLUCOSE, PLEURAL FLUID STAT 10:15 AM EST Encounter for general adult medical examination without abnormal findings documented in this encounter Results * Lactate Dehydrogenase, Pleural Fluid (07/22/2025 10:15 AM EST) LDH, Fluid 98 U/L 07/23/2025 5:28 AM EST [facility] Pleural Fluid 07/22/2025 10: 15 AM EST 07/23/2025 5:00 AM EST Narrative [facility] - 07/23/2025 5:28 AM EST [...] the following criteria are present: (1) pleural fdxuh-ar-pynxq protein ratio of >0.5, (2) pleural uwqso-wk-nmrae LDH ratio of >0.6, or (3) a pleural fluid LDH activity that is >2/3 the upper limit of a normal serum LDH activity. Light's criteria may misclassify ~25% of transudates as exudates in heart failure. These can be identified by calculating a dnqke-lr-fwvmlwg albumin gradient (>1.2 g/dL) and/or a srhwm-kr-tcbum protein gradient (>3.1 g/dL). [facility] BODY FLUIDS AND STOOLS O RDERABLES Final Result Performing Organization Address [facility] de Phone Number [facility] [address] [place] [address] * Glucose, body fluid (07/22/2025 10:15 AM EST) Glucose, Fluid 115 mg/dL 07/22/2025 1:21 PM EST [facility] Pleural Fluid 07/22/2025 10: 15 AM EST 07/22/2025 12:45 PM EST Narrative [facility] - 07/22/2025 1:21 PM EST [...] [facility] BODY FLUIDS AND STOOLS O BRENDAERABLES Final Result Performing Organization Address [facility] de Phone Number [facility] [address] [place] [address] * Total Protein, Pleural Fluid (07/22/2025 10:15 AM EST) Total Protein, Fluid 2.5 g/dL 07/22/2025 1:21 PM EST [facility] Pleural Fluid 07/22/2025 10: 15 AM EST 07/22/2025 12:45 PM EST Narrative [facility] - 07/22/2025 1:21 PM EST This test was developed and its performance characteristics determined by [facility]. The U.S. Food and Drug Administration has not approved or cleared this test. However, FDA clearance or approval is not currently required for clinical use. The results are not intended to be used as the sole means for clinical diagnosis or patient management decisions. [facility] BODY FLUIDS AND STOOLS O RDERABLES Final Result [facility] [address] [place] [address] * Lactate Dehydrogenase Total, Body Fluid (SO) (07/22/2025 10:15 AM EST) Lactate Dehydrogenase Total, Body Fluid 91 U/L 07/24/2025 3:04 AM EST [facility]) LDH Fluid Source Pleural fluid 07/24/2025 3:04 AM EST [facility] ([facility]) Pleural Fluid 07/22/2025 10: 15 AM EST 07/22/2025 12:45 PM EST Narrative [facility] ([facility]) - 07/24/2025 3:04 AM EST INTERPRETIVE INFORMATION: Lactate Dehydrogenase Total, Body Fluid For information on body fluid reference ranges and/or interpretive guidance visit [email or web address] This test was developed and its performance characteristics determined by [facility]. It has not been cleared or approved by the [place] Food and Drug Administration. This test was performed in a CLIA certified laboratory and is intended for clinical purposes. Performed By: [facility] [address] [place] [address] Business Line Controller: Rosales Cooper MD, PhD CLIA Number: [id number] [facility] REF LAB BLOOD AND FLUID ORD Final Result Performing Organization Address City/[facility] de Phone Number [facility]) [address] [place] [address] documented in this encounter Visit Diagnoses Diagnosis Encounter for general adult medical examination without abnormal findings documented in this encounter Additional Health Concerns [...] documented as of this encounter Care Teams Wildlife Conservationist Relationship Specialty Start Date End Date Rosemarie Riley, STEVE [address] [place] [address] PCP - General 04/02/25 Baylee Gracia, RN Registered Nurse 06/12/25 documented as of this encounter
--- OUTSIDE RECORDS SUMMARY | 2025-07-25 05:49 | XMS_ITS | Encounter Summary ---
Author Organization [facility] ([place], [place], [place], [place], [place]) Address [address] [place] [address] Care Team Providers Care Event Specialist Product Demonstrator Name Role Phone Osmani Becker MD Primary Care Provider [phone] Encounter Details Date Type Department Care Team [...] Do you speak a language other than [place]ian at [facility]? No 06/23/2025 Do you want help [...] on filedocumented in this encounter Care Teams Event Specialist Product Demonstrator Relationship Specialty Start Date End Date Osmani Becker MD [address] [place] [address] PCP - General General Internal Medicine 02/02/24 documented as of this encounter
--- OUTSIDE RECORDS SUMMARY | 2025-07-25 05:49 | XMS_ITS | Clinical Summary ---
Author Organization [employer] ([place], [place], [place], [place], [place]) Address [address] [place] [address] Care Team Providers Care Model Making Supervisor Name Role Phone Osmani Becker MD Primary Care Provider [phone] Mindy Mckeon MD Unavailable Allergies Active Allergy [...] up to 30 days. 300 mL 06/28/20 025 Active hydrALAZINE (APRESOLINE) 25 MG tablet Take 3 tablets (75 mg total) by mouth 4 (four) times daily for 30 days Look-alike/[place] nd-alike medication. 360 tablet 06/28/20 025 Active aspirin 81 MG chewable tablet Take 1 tablet (81 mg total) by mouth daily for 30 days. 30 tablet 06/28/20 025 Active hydrALAZINE (APRESOLINE) 25 MG tablet Take 3 tablets (75 mg total) by mouth 3 (three) times daily. 025 Discontin ued(Stop Taking at Discharge ) aspirin 81 MG EC tablet Take 1 tablet (81 mg total) by mouth daily. 025 Discontin ued(Stop Taking at Discharge ) rosuvastatin (Crestor) 10 MG tablet Take 1 tablet (10 mg total) by mouth daily for 30 days. 30 tablet 06/28/20 25 025 Discontin ued(Stop Taking at Discharge ) Active [...] - 06/29/2025 3:55 PM EDT Hospital Encounter [facility] 5B Medical Telemetry Unit [address] [place] [id number] Dajuan Banueols MD Hughes, Isaac, PA-C Elbita, Omar, MD [...] Do you speak a language other than Greek at ho me? No 06/23/2025 Do you [...] GLUCOSE POC Routine 06/27/2025 5:14 AM EDT [facility] CBC SCAN Routine 06/27/2025 3:06 AM [...] POC Routine 06/26/2025 10:5 6 AM EDT [facility] CBC SCAN Routine 06/26/2025 8:11 AM EDT CBC W/ AUTO DIFF Routine 06/26/2025 8:11 AM EDT PTT HEPARIN PROTOCOL Routine 06/26/2025 8:11 AM EDT NOVA GLUCOSE POC Routine 06/26/2025 5:09 AM EDT [facility] CBC SCAN Routine 06/26/2025 1:18 AM [...] HEPARIN PROTOCOL Routine 06/25/2025 7:47 AM EDT [facility] CBC SCAN Routine 06/25/2025 7:46 AM EDT CBC W/ AUTO DIFF Routine 06/25/2025 7:46 AM EDT NOVA GLUCOSE POC Routine 06/25/2025 4:59 AM EDT [facility] CBC SCAN Routine 06/24/2025 9:22 PM EDT PT/INR, PTT STAT 06/24/2025 9:22 PM EDT CBC W/ AUTO DIFF STAT 06/24/2025 9:22 PM EDT PTT HEPARIN PROTOCOL Routine 06/24/2025 9:22 PM EDT NOVA GLUCOSE POC Routine 06/24/2025 8:40 PM EDT XR CHEST PA AND LATERAL STAT 06/24/2025 2:15 PM EDT US THORACENTESIS LT Routine 06/24/2025 2 :09 PM EDT CYTOLOGY ([facility]) AP Routine 06/24/2025 2:06 PM EDT Mass of lung Pleural effusion on right BODY FLUID/CSF- PATH REVIEW LAB ONLY Routine 06/24/2025 2:06 PM EDT Mass of lung Pleural effusion on right [facility] DIFFERENTIAL, BODY FLUID Routine 06/24/2025 2:06 [...] METABOLIC PANEL Routine 06/24/2025 6:33 AM EDT [facility] CBC SCAN Routine 06/24/2025 6:32 AM [...] FS_MODEL_IP_ECG 12-LEAD STAT 06/23/2025 10:44 PM EDT [facility] CBC SCAN Routine 06/23/2025 8:26 PM [...] 10.0 K/ L 06/29/2025 10:47 AM EDT [facility] RBC 3.10(L) 3.93 - 5.22 M/ L 06/29/2025 10:47 AM EDT [facility] Hemoglobin 8.8(L) 11.2 - 15.7 GM/DL 06/29/2025 10:47 AM EDT [facility] Hematocrit 29.2(L) 34.1 - 44.9 % 06/29/2025 10:47 AM EDT [facility] MCV 94 79 - 95 fL 06/29/2025 10:47 AM EDT [facility] MCH 28.4 25.6 - 32.2 pg 06/29/2025 10:47 AM EDT [facility] MCHC 30.1(L) 32.2 - 35.5 GM/DL 06/29/2025 10:47 AM EDT [facility] RDW 18.5(H) 11.7 - 14.4 % 06/29/2025 10:47 AM EDT [facility] Platelets 51(L) 140 - 375 K/CU MM 06/29/2025 10:47 AM EDT [facility] MPV 11.1 9.4 - 12.3 fL 06/29/2025 10:47 AM EDT [facility] % Neutros 72(H) 34 - 71 % 06/29/2025 10:47 AM EDT [facility] % Lymphs 16(L) 19 - 52 % 06/29/2025 10:47 AM EDT [facility] % Monos 7 5 - 13 % 06/29/2025 10:47 AM EDT [facility] % Eos 4 1 - 6 % 06/29/2025 10:47 AM EDT [facility] % Baso 1 0 - 1 % 06/29/2025 10:47 AM EDT [facility] NRBC Absolute <0.01 0 - 0.012 K/ul 06/29/2025 10:47 AM EDT [facility] # Neutros 3.78 1.56 - 6.13 K/ L 06/29/2025 10:47 AM EDT [facility] # Lymphs 0.81(L) 1.18 - 3.74 K/ L 06/29/2025 10:47 AM EDT [facility] # Monos 0.37 0.24 - 0.86 K/ L 06/29/2025 10:47 AM EDT [facility] # Eos 0.22 0.04 - 0.36 K/ L 06/29/2025 10:47 AM EDT [facility] # Baso 0.04 0.01 - 0.08 K/ L 06/29/2025 10:47 AM EDT [facility] % Imm Grans 0.40 0.01 - 0.43 % 06/29/2025 10:47 AM EDT [facility] # IG <0.03 0.00 - 0.03 K/uL 06/29/2025 10:47 AM EDT [facility] Blood Venipuncture / Unknown 06/29/2025 10:30 AM EDT 06/29/2025 10:35 AM EDT [facility] - 06/29/2025 10:47 AM [...] ORDERABLES Final Resul t Performing Organization Address City/[facility]/ZIP Co de Phone Number [facility] [address] [phone] * (ABNORMAL) Glucose, Nova Meter (06/29/2025 6:06 AM EDT) Only the most recent of19 resultswithin the time period is included. [facility] POC-GLUCOSE 181(H) 70 - 110 mg/dL 06/29/2025 6:07 AM EDT [facility] Comment: In the event of poor peripheral blood flow, venous or arterial blood should be used due to the potential of erroneous results. Notified Nurse [facility]BV Global Project Manager [phone] 06/29/2025 6:07 AM EDT [facility] Blood WHOLE BLOOD / Unknown 06/29/2025 6:06 AM EDT 06/29/2025 6:07 AM EDT [facility] - 06/29/2025 6:07 AM EDT Global Project Manager ID is - [id number] Mundo Díaz MD POINT OF CARE TEST ORDERABLES Fi nal Result Performing Organization Address City/[facility]/ZIP Co de Phone Number [facility] [address] [phone] * Magnesium (06/28/2025 2:34 AM EDT) Only the most recent of3 resultswithin the time period is included. [facility] Magnesium 1.7 1.6 - 2.6 mg/dL 06/28/2025 3:14 AM EDT [facility] Blood Venipuncture / Unknown 06/28/2025 2:34 AM EDT 06/28/2025 2:50 AM EDT us Mundo Díaz MD LAB BLOOD ORDERABLES Final Resul t [facility] [address] [phone] * (ABNORMAL) Comprehensive metabolic panel (06/28/2025 2:34 AM EDT) Only the most recent of5 resultswithin the time period is included. Sodium 140 136 - 145 meq/L 06/28/2025 3:14 AM EDT [facility] Potassium 4.5 3.4 - 5.1 meq/L 06/28/2025 3:14 AM EDT [facility] Chloride 101 98 - 112 meq/L 06/28/2025 3:14 AM EDT [facility] CO2 25 22 - 29 meq/L 06/28/2025 3:14 AM EDT [facility] Calcium 7.9(L) 8.4 - 10.2 mg/dL 06/28/2025 3:14 AM EDT [facility] Glucose 130(H) 74 - 100 mg/dL 06/28/2025 3:14 AM EDT [facility] BUN 41.0(H) 9.8 - 20.1 mg/dL 06/28/2025 3:14 AM EDT [facility] Creatinine 2.43(H) 0.57 - 1.11 mg/dL 06/28/2025 3:14 AM EDT [facility] BUN/Creatinine 17 8 - 20 06/28/2025 3:14 AM [facility] eGFR (mL/min/1.73m2) 23(L) >=60 mL/min/1. 73m2 06/28/2025 3:14 AM EDT [facility] Comment:ESTIMATED GFR IS NOT ACCURATE CREATININE CLEARANCE IN PREDICTING GLOMERULAR FILTRATION RATE. ESTIMATED GFR IS NOT APPLICABLE FOR DIALYSIS PATIENTS. Albumin 2.3(L) 3.5 - 5.0 g/dL 06/28/2025 3:14 AM EDT [facility] Alkaline Phosphatase 182(H) 40 - 150 U/L 06/28/2025 3:14 AM EDT [facility] ALT 7 <=34 U/L 06/28/2025 3:14 AM EDT [facility] Comment: ALT2 reagent used for testing does not contain P5P supplementation and therefore may miss ALT elevations in patients with B6 deficiency. This population may be as high as 10% in the [place], with risk factors including malabsorption, drug interactions, and alcoholic hepatitis. AST 15 11 - 34 U/L 06/28/2025 3:14 AM EDT [facility] Comment: AST2 reagent used for testing does not contain P5P supplementation and therefore may miss AST elevations in patients with B6 deficiency. This population may be as high as 10% in the [place], with risk factors including malabsorption, drug interactions, and alcoholic hepatitis. Total Bilirubin 0.7 0.2 - 1.2 mg/dL 06/28/2025 3:14 AM EDT [facility] Protein, Total 5.9(L) 6.4 - 8.3 g/dL 06/28/2025 3:14 AM EDT [facility] Globulin 3.6 2.5 - 4.1 g/dL 06/28/2025 3:14 AM EDT [facility] Anion Gap 19(H) 4 - 12 06/28/2025 3:14 AM EDT [facility] A/G Ratio 0.6(L) 0.7 - 1.9 06/28/2025 3:14 AM EDT [facility] Osmolality Calc 291.3 mOsm/kg 3:14 AM T [facility] Blood Venipuncture / Unknown 06/28/2025 2:34 AM EDT 06/28/2025 2:50 AM EDT us Mundo Díaz MD LAB BLOOD ORDERABLES Final Resul t [facility] [address] [phone] * (ABNORMAL) Hemoglobin and hematocrit (06/27/2025 7:53 PM EDT) Only the most recent of2 resultswithin the time period is included. Hemoglobin 8.7(L) 11.2 - 15.7 GM/DL 06/27/2025 8:14 PM EDT [facility] Hematocrit 28.7(L) 34.1 - 44.9 % 06/27/2025 8:14 PM EDT [facility] Blood Venipuncture / Unknown 06/27/2025 7:53 PM EDT 06/27/2025 8:08 PM EDT us Mundo Díaz MD LAB BLOOD ORDERABLES Final Resul t Performing Organization Address [facility] de Phone Number [facility] [address] [phone] * Transfuse RBC (06/27/2025 2:38 PM EDT) Only the most recent of2 resultswithin the time period is included. us Mundo Díaz MD FS_MODEL_IP_BLOOD TRANSFUSION OR DERABLES Final Result * (ABNORMAL) PTT Heparin Protocol (06/27/2025 10:07 AM EDT) Only the most recent of12 resultswithin the time period is included. PTT Heparin 29.7(L) 45 - 65 seconds 06/27/2025 11:08 AM EDT [facility] Blood Venipuncture / Unknown 06/27/2025 10:07 AM EDT 06/27/2025 10:43 AM EDT us Mundo Díaz MD LAB BLOOD ORDERABLES Final Resul t Performing Organization Address City/[facility] Co de Phone Number [facility] [address] [phone] * Prepare RBC: 1 Units (06/27/2025 9:47 AM EDT) Only the most recent of2 resultswithin the time period is included. Issue Date/Time [id number] [facility] BLOOD [facility] [place] Product Identification Red Blood Cells [facility] [place]) Product Code [id number] [facility] [place] Status Information TRANSFUSED [facility] [place] Unit Number [id number] [place] [facility] [place]) Blood Type 9500 [facility] [place] Cross Match Results Compatible [facility] [place] us Mundo Díaz MD FS_MODEL_IP_BLOOD BANK PRODUCT O RDERABLES Final Result [facility] [place]) [address] [place] [address], [facility] [phone] * (ABNORMAL) CBC Scan (06/27/2025 3:06 AM EDT) Only the most recent of7 resultswithin the time period is included. Platelet Estimate Decreased (A) Adequate 06/27/2025 4:48 AM EDT [facility] RBC Morphology abnormal( A) Normal 06/27/2025 4:48 AM EDT [facility] Anisocytosis 2+ 06/27/2025 4:48 AM EDT [facility] Hypochromia 1+ 06/27/2025 4:48 AM EDT [facility] Polychromasia 1+ 06/27/2025 4:48 AM EDT [facility] Macrocytes 1+ 06/27/2025 4:48 AM EDT [facility] Ovalocytes 1+ 06/27/2025 4:48 AM EDT [facility] Elliptocytes 1+ 06/27/2025 4:48 AM EDT [facility] Blood Venipuncture / Unknown 06/27/2025 3:06 AM EDT 06/27/2025 3:43 AM EDT us Mundo Díaz MD LAB BLOOD ORDERABLES Final Resul t Performing Organization Address [facility] Co de Phone Number [facility] [address] [phone] * (ABNORMAL) Phosphorus (06/26/2025 1:18 AM EDT) Phosphorus 5.1(H) 2.5 - 4.5 mg/dL 06/26/2025 1:45 AM EDT [facility] Blood Venipuncture / Unknown 06/26/2025 1:18 AM EDT 06/26/2025 1:21 AM EDT Mundo Díaz MD LAB BLOOD ORDERABLES Final Resul t Performing Organization Address [facility] de Phone Number [facility] [address] [phone] * (ABNORMAL) Prothrombin time/INR (06/25/2025 10:26 AM EDT) Only the most recent of2 resultswithin the time period is included. Protime 12.6(H) 9.0 - 12.0 seconds 06/25/2025 12:47 PM EDT [facility] INR 1.15(H) 0.80 - 1.10 06/25/2025 12:47 PM EDT [facility] Comment: Recommended therapeutic ranges using [...] ORDERABLES Final Resul t Performing Organization Address [facility] Co de Phone Number [facility] [address] [phone] * Type and Screen (06/25/2025 9:11 AM EDT) ABO/Rh O Positive 06/25/2025 9:20 AM EDT [facility] [place] Antibody Screen Negative 06/25/2025 9:20 AM EDT [facility] [place]) HISTCHK HIST CHECK PERFORMED 06/25/2025 9:20 AM EDT [facility] BLOOD [facility] [place] Blood Venipuncture / Unknown 06/25/2025 9:11 AM EDT 06/25/2025 9:20 AM EDT Mundo Díaz MD [facility] BLOOD BANK TEST ORDERABLES F inal Result Performing Organization Address City/[facility]/ZIP Co de Phone Number [facility] [place] [address] [phone] * (ABNORMAL) PT/INR, PTT (06/24/2025 9:22 PM EDT) aPTT 37.3(H) 22.0 - 32.0 seconds 06/24/2025 9:49 PM EDT [facility] Protime 12.4(H) 9.0 - 12.0 seconds 06/24/2025 9:49 PM EDT [facility] INR 1.13(H) 0.80 - 1.10 06/24/2025 9:49 PM EDT [facility] Blood Venipuncture / Unknown 06/24/2025 9:22 PM EDT 06/24/2025 9:32 PM EDT us Vlad Waters PA-C LAB BLOOD ORDERABLES Final Res ult [facility] [address] [place] [address], [facility] [phone] * XR chest 2 views (06/24/2025 2:15 [...] pleural effusion. ATTENDING RADIOLOGIST: Dr. Rebolledo. PHYSICIAN GREEN CHAIN WORKER: Kalyan Wisdom PA-C. TECHNIQUE: Informed consent was [...] pleural effusion. ATTENDING RADIOLOGIST: Dr. Rebolledo. PHYSICIAN GREEN CHAIN WORKER: Kalyan Wisdom PA-C. TECHNIQUE: Informed consent was [...] by Kalyan Wisdom PA-C Dajuan Banuelos MD [facility] ORDERABLES Final Result * DIFFERENTIAL, BODY FLUID (06/24/2025 2:06 PM EDT) Neutrophils Fluid 13 0 - 25 % 025 5:37 PM EDT [facility] Lymphocytes Fluid 30 % 025 5:37 PM EDT [facility] Monocytes Fluid 9 0 - 65 % 5:37 PM EDT [facility] Unidentified Mononuclear Cells BF 48 0 - 0 % 06/24/2025 5:37 PM EDT [facility] Pleural Fluid STRUCTURE OF LEFT PLEURAL CAVITY / Unknown 06/24/2025 2:06 PM EDT 06/24/2025 3:50 PM EDT Dajuan Banuelos MD BODY FLUIDS AND STOOLS ORDERABLE S Final Result Performing Organization Address City/[facility]/ZIP Co de Phone Number [facility] [address] [phone] * [facility] Non-Invoice Coder Cytology (06/24/2025 2:06 PM EDT) AP RESULT See Note: PATHOLOGY AND CYTOLOGY LABORATORY Comment: FINAL NON-[facility] CYTOLOGY REPORT DIAGNOSIS: A. BODY FLUID, LEFT, [...] Fi nal Result PATHOLOGY AND CYTOLOGY LABORATORY [address] * Body Fluid/CSF - Path Review () (06/24/2025 2:06 PM EDT) Differential Comment Macrophages and blood. No malignancy seen. Manoj Cai MD 06-24-2025 06/24/2025 6:10 PM EDT [facility] Pleural Fluid STRUCTURE OF LEFT PLEURAL CAVITY / Unknown 06/24/2025 2:06 PM EDT 06/24/2025 3:50 PM EDT Dajuan Banuelos MD BODY FLUIDS AND STOOLS ORDERABLE S Final Result Performing Organization Address City/[facility]/ZIP Co de Phone Number [facility] [address] [phone] * Glucose, body fluid (06/24/2025 2:06 PM EDT) Glucose, Body Fluid 119 See Comment mg/dL 06/24/2025 5:37 PM EDT [facility] BODY FLUID TYPE Pleural 06/24/2025 5:37 PM EDT [facility] Pleural Fluid STRUCTURE OF LEFT PLEURAL CAVITY / Unknown 06/24/2025 2:06 PM EDT 06/24/2025 3:50 PM EDT Narrative [facility] - 06/24/2025 5:37 PM EDT This test has been modified from the bowling ball molder's instructions and its performance characteristics were determined [...] ORDERABLE S Final Result Performing Organization Address City/[facility]/ZIP Co de Phone Number [facility] [address] [phone] * Body Fluid Culture + Gram Stain (06/24/2025 2:06 PM EDT) Result No growth 06/27/2025 7:33 AM EDT [facility] Gram Stain Result No organisms seen 06/27/2025 7:33 AM EDT [facility] Gram Stain Result Rare WBCs 06/27/2025 7:33 AM EDT [facility] Pleural Fluid STRUCTURE OF LEFT PLEURAL CAVITY / Unknown 06/24/2025 2:06 PM EDT 06/24/2025 3:50 PM EDT Narrative [facility] - 06/27/2025 7:33 AM EDT Specimen Description: left pleural fluid us Dajuan Banuelos MD MICROBIOLOGY - GENERAL ORDERABLE S Final Result [facility] [address] [phone] * Body fluid cell count with differential (06/24/2025 2:06 PM EDT) Appearance Clear Clear 06/24/2025 5:37 PM EDT [facility] Color Yellow 06/24/2025 5:37 PM EDT [facility] BODY FLUID TYPE Pleural 5:37 PM EDT [facility] Auto WBC/Nucleated Cells BF 253 /uL 06/24/2025 5:37 PM EDT [facility] Comment: Please refer to specific WBC/Nucleated Cell Count Body Fluid reference ranges below: For Pleural: 0-1000 Peritoneal: 0-1000 Pericardial:0-1000 Synovial: 0-200 Auto RBC BF 3,000 /uL 06/24/2025 5:37 PM EDT [facility] Comment: Please refer to specific RBC Cell Count Body Fluid reference ranges below: Pleural: 0-10,000 Peritoneal: 0-10,000 Pericardial:0-10,000 Synovial:0-30 Pleural Fluid STRUCTURE OF LEFT PLEURAL CAVITY / Unknown 06/24/2025 2:06 PM EDT 06/24/2025 3:50 PM EDT Narrative [facility] - 06/24/2025 5:37 PM EDT There is normally no readily obtainable pleural, peritoneal and pericardial fluid, hence normal elements for these potential fluids are not defined. us Dajuan Banuelos MD BODY FLUIDS AND STOOLS ORDERABLE S Final Result Performing Organization Address [facility]/ZIP Co de Phone Number [facility] [address] [phone] * Protein, body fluid (06/24/2025 2:06 PM EDT) Protein, Fluid 1.5 See Comment g/dL 06/24/2025 5:37 PM EDT [facility] BODY FLUID TYPE Pleural 06/24/2025 5:37 PM EDT [facility] Pleural Fluid STRUCTURE OF LEFT PLEURAL CAVITY / Unknown 06/24/2025 2:06 PM EDT 06/24/2025 3:50 PM EDT [facility] LABORATORY - 06/24/2025 5:37 PM EDT This test has been modified from the bowling ball molder's instructions and its performance characteristics were determined by the laboratory. The reference intervals and other method performance specifications are unavailable for this test. It is recommended to interpret body fluid concentrations in comparison with the corresponding serum or plasma concentrations and to integrate test results into the clinical context. Dajuan Banuelos MD BODY FLUIDS AND STOOLS ORDERABLE S Final Result Performing Organization Address [facility] Co de Phone Number [facility] [address] [place] [address], [facility] [phone] * Lactate dehydrogenase (LDH), body fluid (06/24/2025 2:06 PM EDT) LDH, Fluid 67 See Comment U/L 06/24/2025 5:37 PM EDT [facility] BODY FLUID TYPE Pleural 06/24/2025 5:37 PM EDT [facility] Pleural Fluid STRUCTURE OF LEFT PLEURAL CAVITY / Unknown 06/24/2025 2:06 PM EDT 06/24/2025 3:50 PM EDT [facility] LABORATORY - 06/24/2025 5:37 PM EDT This test has been modified from the bowling ball molder's instructions and its performance characteristics were determined by the laboratory. The reference intervals and other method performance specifications are unavailable for this test. It is recommended to interpret body fluid concentrations in comparison with the corresponding serum or plasma concentrations and to integrate test results into the clinical context. us Dajuan Banuelos MD BODY FLUIDS AND STOOLS ORDERABLE S Final Result [facility] [address] [place] [address], [facility] [phone] * ECHO COMPLETE (DOPPLER / COLOR) W CONTRAST (06/24/2025 8:00 AM EDT) Anatomical Region Laterality Modality Heart Vascular Ultraso und 06/24/2025 8:38 AM EDT Narrative 06/24/2025 8:03 PM EDT TRANSTHORACIC ECHOCARDIOGRAPHY REPORT Demographics Patient Name: VIET VORA : 1970 Age: 55 year(s) Corporate ID Number: [id number] Gender Female Mds Nurse: Familia Garcia, Height: 67 inches [facility] Referring Physician: ADEBAYO TORRES Weight: 132 pounds Interpreting MINDY MCKEON MD BMI: 20.67 kg/m^2 Physician: Date of Service: 06/24/2025 Blood Pressure: 154/92 mmHg Room Number: 566 Type of Study: TTE procedure: ECHO COMPLETE (DOPPLER / COLOR) W OR WO CONTRAST. Patient Status: [facility]ICE [facility] History/Tech Notes: Indication: [...] 0.43 m/s E/A ratio: 2.58 m/s Volume [id number] LV length: 8.52 cm ml Volume kihptwof14.42 ml LVOT diameter: 1.7 cm Normal sized [...] Valve TR velocity: 4.33 m/s TR gradient: 75.41149 mmHg Estimated RAP: 15 mmHg RVSP: 90.15 [...] 1970 Age: 55 year(s) Corporate ID Number: [id number] Gender Female Mds Nurse: Familia Garcia, Height: 67 inches [facility] Referring Physician: ADEBAYO TORRES Weight: 132 pounds Interpreting MINDY MCKEON MD BMI: 20.67 kg/m^2 Physician: Date of Service: 06/24/2025 Blood Pressure: 154/92 mmHg Room Number: 566 Type of Study: TTE procedure: ECHO COMPLETE (DOPPLER / COLOR) W OR WO CONTRAST. Patient Status: ALICE [facility] History/Tech Notes: Indication: [...] 0.43 m/s E/A ratio: 2.58 m/s Volume [id number] LV length: 8.52 cm ml Volume [id number] ml LVOT diameter: 1.7 cm Normal sized [...] Valve TR velocity: 4.33 m/s TR gradient: 75.72925 mmHg Estimated RAP: 15 mmHg RVSP: 90.15 [...] (ABNORMAL) PROBNP (06/24/2025 6:33 AM EDT) Pathologist [facility] ProBNP (pg/mL) >70,000(H) 16 - 334 pg/mL 06/24/2025 7:17 AM EDT [facility] Blood Venipuncture / Unknown 06/24/2025 6:33 AM EDT 06/24/2025 6:36 AM EDT Narrative [facility] - 06/24/2025 7:17 AM EDT As of February 07, 2025: NT-ProBNP is a new test on our [employer] - On[employer] Gravity Immunoassay analyzer. Please review new age and gender specific reference ranges. us Vlad Waters PA-C LAB BLOOD ORDERABLES Final Res ult [facility] [address] [id number], [facility] [phone] * Hepatitis panel, acute (06/24/2025 6:33 AM EDT) Hep A IgM Nonreactive Nonreactive 06/24/2025 11:46 AM EDT [facility] Hep B C IgM Nonreactive Nonreactive 06/24/2025 11:46 AM EDT [facility] Hepatitis B surface antigen Nonreactive Nonreactive 06/24/2025 11:46 AM EDT [facility] Hepatitis C Ab Nonreactive Nonreactive 06/24/20 11:46 AM EDT [facility] Comment: Sales Representative [employer] recommends confirmatory testing on all reactives and equivocals. Blood Venipuncture / Unknown 06/24/2025 6:33 AM EDT 06/24/2025 6:36 AM EDT Blaine Moreno MD LAB BLOOD ORDERABLES Final Resul t Performing Organization Address [facility]/ZIP Co de Phone Number [facility] [address] [phone] * (ABNORMAL) High Sensitivity Troponin I (06/24/2025 6:32 AM EDT) Only the most recent of2 resultswithin the time period is included. Troponin I High Sensitivity (pg/mL) 2,424.1(H H) <=14 pg/mL 06/24/2025 7:04 AM EDT [facility] Blood Venipuncture / Unknown 06/24/2025 6:32 AM EDT 06/24/2025 6:36 AM EDT Narrative [facility] - 06/24/2025 7:04 AM EDT Applicable to [facility] only. Effective December 11 the lab will begin using a new chemistry analyzer. HsTroponin methodology, reference ranges and critical values have changed. us Vlad Waters PA-C LAB BLOOD ORDERABLES Final Res ult [facility] [address] [phone] * XR chest AP portable (06/23/2025 10:57 [...] ATRIAL RATE (MCT) 68 BPM GE MUSE MT Interval 140 ms GE MUSE QRS-INTERVAL (MSEC) 116 ms GE MUSE QT Interval 440 ms GE MUSE QTC Interval 467 ms GE MUSE P [place] 89 degrees GE MUSE R AXIS (MCT) 118 degrees GE MUSE T Wave [place] -57 degrees GE MUSE [place] Diagnosis Normal sinus rhythm Right axis deviation [...] Final Result from Last 3 Months Insurance [id number] (Home) [address] [place] [address] GENERIC MEDICARE REPLACEMENT MEDICARE PART A B [facility] MEDICARE HMO Advance Directives For more information, please contact: [phone] * DNR - Limited Additional Intervention (Latest [...] 1:36 AM 04/16/2024 12:42 PM Care Teams Model Making Supervisor Relationship Specialty Start Date End Date Osmani Becker MD [address] [place] [address] PCP - General General Internal Medicine 02/02/24 Mindy Mckeon MD [address] [facility], [facility] [address] [place] [id number] Interventional Cardiology 06/27/25
--- OUTSIDE RECORDS SUMMARY | 2025-07-25 05:49 | XMS_ITS | Encounter Summary ---
Author Organization [employer] ([place], [place], [place], [place], [place]) Address [address] [place] [address] Care Team Providers Care Summer Law Clerk Name Role Phone Osmani Becker MD Primary Care Provider [phone] Mindy Soto MD Unavailable Encounter Details Date Type Department Care Team (Late st Contact Info) Description 06/25/2024 Community Orders [facility] EpicCare Link [address] [place] [address] Rekha Dick MD [address] [place] [address] Social History Tobacco Use Types Packs/Day Years Used Date Smoking Tobacco: Every Day Cigarettes Smokeless Tobacco: Never Alcohol Use Standard Drinks/Week Comments Never 0 (1 standard drink = 0.6 oz pur e alcohol) Utilities Answer Date Recorded In the past 12 months, has t he [employer], gas, oil, or water [employer] threatened to shut off services in your [...] Do you speak a language other than Romanian at [facility]? No 06/17/2024 Do you want help [...] on filedocumented in this encounter Care Teams Summer Law Clerk Relationship Specialty Start Date End Date Osmani Becker MD [address] [place] [phone] PCP - General General Internal Medicine 02/02/24 Mindy Soto MD [address] , [address] [address] Interventional Cardiology 06/27/25 documented as of this encounter
--- NOTE | 2025-07-25 05:51 | ECG_ITS ---
APPROVED REPORT Exam: Resting ECG HR:71 bpm ECG Measurements Heart Rate 71 AXES [place] 155 P 13 QRSd 127 QRS 127 QT 435 T -20 QTc 457 Conclusion SINUS RHYTHM POSSIBLE RIGHT VENTRICULAR HYPERTROPHY [SOME/ALL OF: PROMINENT R IN V1, LATE TRANSITION, RAD, TONY, SSS] NONSPECIFIC ST & T-WAVE ABNORMALITY ABNORMAL ECG INTERPRETATION BASED ON A DEFAULT AGE OF 40 YEARS Significant wandering precludes full diagnostic capability of this EKG Electronically signed by : ANNE PETIT, 07/30/2025 15:05:09
--- OUTSIDE RECORDS SUMMARY | 2025-07-25 05:53 | XMS_ITS | Clinical Summary ---
Author Organization [facility] Address [address] [place] [address] Care Team Providers Care Brick Layer Name Role Phone Osmani Becker MD Primary Care Provider [phone] Allergies Active Allergy Reactions Criticality Noted Date [...] HEPATITIS C SCREENING Completed 06/24/2024, 024 [place] [facility] [place] Care Teams Brick Layer Relationship Specialty Start Date End Date Osmani Becker MD [address] [facility] [address] [place] [address] PCP - General Internal Medicine 07/30/16
--- NOTE | 2025-07-25 05:55 | HMH.EDGENADL ---
Discharge Plan Disposition Patient Disposition: Xfer Other Prescriptions Prescriptions: No Action levothyroxine 75 mcg capsule 75 mcg PO DAILY isosorbide mononitrate 60 mg tablet extended release 24 hr 60 mg PO DAILY clopidogrel 75 mg tablet 75 mg PO DAILY pantoprazole 20 mg tablet,delayed release (DR/EC) 20 mg PO DAILY aspirin 325 mg tablet 325 mg PO DAILY ezetimibe 10 mg tablet 10 mg PO DAILY oxycodone-acetaminophen 10-325 mg tablet 1 tab PO Q6H PRN (Reason: pain) Qty: 120 0RF albuterol sulfate 90 mcg/actuation HFA aerosol inhaler 2 puff inhalation Q6H PRN (Reason: shortness of breath or wheezing) Qty: 8.5 1RF hydralazine 50 mg tablet 50 mg PO Q3H carvedilol 25 mg Tablet 25 mg PO BID Rx Instructions: must administer with a meal/food Referrals Follow up/Referrals: Provider,Referral, MD [Primary Care Provider, Medical] - See instructions Clinical Impressions Clinical Impression: Respiratory failure with hypoxia and hypercapnia, Pneumonia, Heart failure Print Language Print Language: Divehi Discharge ED Provider: Aman Lee General Adult HPI General Chief complaint: Shortness of Breath/Dyspnea Stated complaint: SOA Time Seen by Provider: 07/25/25 05:55 History of Present Illness HPI narrative: 55-year-old female with history of ESRD on a Tuesday dialysis, last got dialysis on Tuesday, history of heart failure, CAD, poorly controlled diabetes, hypertension presents for respiratory distress. She was seen here last week and diagnosed with pneumonia and heart failure and was transferred to another facility where she received treatment including antibiotics and a thoracentesis with drainage of approximately 2 L of fluid according to family member. She was discharged about 24 hours ago and this morning had severe shortness of breath. Her oxygen at home was in the 70s on 4 L nasal cannula (baseline of 2 L nasal cannula). She is a DNR/DNI Related Data Home Medications ?Medication ?Instructions ?Recorded ?Confirmed aspirin 325 mg tablet 325 mg PO DAILY 03/07/24 06/18/25 clopidogrel 75 mg tablet 75 mg PO DAILY 03/07/24 06/23/25 ezetimibe 10 mg tablet 10 mg PO DAILY 03/07/24 06/23/25 isosorbide mononitrate 60 mg 60 mg PO DAILY 03/07/24 06/23/25 tablet,extended release 24 hr levothyroxine 75 mcg capsule 75 mcg PO DAILY 03/07/24 06/23/25 pantoprazole 20 mg tablet,delayed 20 mg PO DAILY 03/07/24 06/23/25 release hydralazine 50 mg tablet 50 mg PO Q3H 04/13/24 06/23/25 carvedilol 25 mg tablet 25 mg PO BID 04/15/24 06/18/25 Previous Rx's ?Medication ?Instructions ?Recorded albuterol sulfate 90 mcg/actuation 2 puff inhalation Q6H PRN 06/18/25 aerosol inhaler shortness of breath or wheezing #8.5 grams oxycodone-acetaminophen 10 mg-325 1 tab PO Q6H PRN pain #120 tabs 06/18/25 mg tablet Allergies Allergy/AdvReac Type Severity Reaction Status Date / Time insulin glargine (From Allergy Intermediate Numbness Verified 06/18/25 15:13 Basaglar KwikPen U-100 Insulin) lisinopril (LISINOPRIL) Allergy Intermediate I-ITCHING Verified 06/18/25 15:13 [facility] Disclaimer: The information contained in this section may have been updated after the patient was seen, as this information can be updated by other users. Medical History HTN (hypertension) Social History Smoking Status: Former smoker alcohol intake: never current occupational status: other Travel in the last 8 weeks?: None Other Medical History Have you received the Pneumonia Vaccine: No ROS Obtained: Yes All systems reviewed & no additional complaints except as documented Physical Exam General General appearance: anxious and in distress Head Head exam: atraumatic and normocephalic Eye Eye exam: Present normal appearance, PERRL and EOMI ENT ENT exam: Present normal oropharynx and normal external ear exam Neck Neck exam: Present normal inspection and full ROM Chest Chest inspection: Present normal inspection and symmetric chest wall rise; Absent tenderness Respiratory Respiratory exam: Present respiratory distress, wheezes, accessory muscle use and other (Crackles and rhonchi bilaterally) Cardiovascular Cardiovascular exam: Present normal rhythm and bradycardia Abdominal Exam Abdominal exam: Present soft; Absent distention, tenderness or guarding Extremities Exam Extremities exam: Present normal inspection; Absent edema or joint swelling Back Exam Back exam: Present normal inspection; Absent tenderness Neurological Exam Neurological exam: Present alert and oriented X3; Absent motor sensory deficit Psychiatric Psychiatric exam: Present normal affect and normal mood Skin Skin exam: Present warm, dry and normal color Lymphatic Lymphatic Findings: no adenopathy Medical Decision Making Medical Records Medical records reviewed: Yes I reviewed the patient's medical records. Screening: Per USPSTF and CDC recommendations, given the prevalence of disease in our region, it is our hospital?s policy to screen for HIV and viral Hepatitis for all patients aged 18 and over and those with ongoing risk factors. Skyler Inquiry Pt receiving controlled substance: No Skyler was queried for this patient: No Vital Signs: 07/25/25 05:55 07/25/25 06:00 07/25/25 06:16 Temperature 97.9 F Temperature Source Oral Pulse Rate 71 Pulse Rate [Right Radial] 80 Respiratory Rate 16 19 Blood Pressure 144/118 H Blood Pressure [Right Arm] 149/45 H Blood Pressure Mean [Right Arm] 79 Blood Pressure Source [Right Arm] Automatic Cuff Blood Pressure Position [Right Arm] Supine 02 Sat by Pulse Oximetry 92 L 95 Oxygen Delivery Method Non-Rebreather Fraction of Inspired Oxygen 40 07/25/25 06:16 07/25/25 06:16 07/25/25 06:17 Temperature Temperature Source Pulse Rate 64 65 Pulse Rate [Right Radial] Respiratory Rate Blood Pressure Blood Pressure [Right Arm] Blood Pressure Mean [Right Arm] Blood Pressure Source [Right Arm] Blood Pressure Position [Right Arm] 02 Sat by Pulse Oximetry 95 Oxygen Delivery Method BiPAP Fraction of Inspired Oxygen 40 07/25/25 06:33 Temperature Temperature Source Pulse Rate 65 Pulse Rate [Right Radial] Respiratory Rate 16 Blood Pressure 154/49 H Blood Pressure [Right Arm] Blood Pressure Mean [Right Arm] Blood Pressure Source [Right Arm] Blood Pressure Position [Right Arm] 02 Sat by Pulse Oximetry 93 L Oxygen Delivery Method Fraction of Inspired Oxygen Lab Data Lab results reviewed: Yes I reviewed the patient's lab results. Lab Results 07/25/25 05:58: SARS-CoV-2 (PCR) Not detected, Influenza A Untype (PCR) Not detected, Influenza Type B (PCR) Not detected 07/25/25 06:00: D-Dimer 2.30 H, VBG pH 7.25 L, VBG pCO2 52.4 H, VBG pO2 45.2 H, VBG HCO3 22.6 L, VBG Total CO2 24.2, VBG O2 Saturation 75.1 H, VBG Base Excess -4.6 L, VBG Lactic Acid 1.2, Sodium 132 L, Potassium 4.9, Chloride 97 L, Carbon Dioxide 23, Anion Gap 16.9 H, BUN 61 H, Creatinine 2.80 H, Estimated Creat Clear 20, Estimated GFR 17 L*, Est GFR ( Amer) 21 L, Glucose 121 H, Calcium 7.9 L, Total Bilirubin 1.1, AST 37 H, ALT 20, Alkaline Phosphatase 174 H, Troponin I 0.06 H, NT-Pro-B Natriuret Pep 797069 H, Total Protein 7.2, Albumin 3.5, Globulin 3.7 H, Albumin/Globulin Ratio 0.9 L 07/25/25 06:10: WBC 7.7, RBC 3.07 L, Hgb 9.1 L, Hct 30.2 L, MCV 98.4, MCH 29.6, MCHC 30.1 L, RDW 18.6 H, Plt Count 63 L, MPV 10.8 H, Neut % (Auto) 77.1, Lymph % (Auto) 10.4, [place] % (Auto) 6.7, Eos % (Auto) 3.4, Baso % (Auto) 0.8, Neut # (Auto) 6.0, Lymph # (Auto) 0.8, [place] # (Auto) 0.5, Eos # (Auto) 0.3, Baso # (Auto) 0.1 07/25/25 06:10 07/25/25 06:00 Orders (Tests/Meds): ED MEDICATIONS Generic Name Dose Route Start Last Admin Trade Name Freq PRN Reason Stop Dose Admin Piperacillin Sod/Tazobactam 100 mls @ 200 mls/hr 07/25/25 06:30 07/25/25 06:49 Sod 2.25 gm/ Sodium Chloride IV 08/04/25 06:29 200 mls/hr Q6H CALEB Administration Vancomycin/PEG/NADA/Lysine/Water 1.25 gm in 250 mls @ 125 mls/hr 07/25/25 06:30 Vancomycin 1.25gm/250ml (Peg) Premix IV 07/25/25 08:29 ONCE ONE Miscellaneous 1 each 07/25/25 06:30 07/25/25 06:45 Vancomycin Consult Request NOTAPPLIC 08/24/25 06:29 Not Given CONSULT PHARMACY [facility] Discontinued Medications Generic Name Dose Route Start Last Admin Trade Name Freq PRN Reason Stop Dose Admin Albuterol/Ipratropium 9 ml 07/25/25 05:51 07/25/25 06:15 Ipratropium/Albuterol 3 Ml Neb IH 07/25/25 05:52 9 ml ONCE ONE Administration ORDERS Category Date Time Status CXR --portable [XR chest portable] Stat Exams 07/25/25 06:02 Taken BNP [NT Pro Brain Natriuretic Pep.] Stat Lab 07/25/25 06:00 Completed CBC w/Auto Diff [Complete Blood Count Auto Diff] Stat Lab 07/25/25 06:10 Completed CMP [Comprehensive Metabolic Panel] Stat Lab 07/25/25 06:00 Completed D-Dimer Stat Lab 07/25/25 06:00 Completed Rapid PCR Covid and Flu A/B Stat Lab 07/25/25 05:58 Completed Troponin I Q3H Lab 07/25/25 06:00 Completed Troponin I Q3H Lab 07/25/25 09:00 Ordered Blood Culture Stat Micro 07/25/25 06:35 Received VBG [Venous Blood Gas] Stat RT 07/25/25 06:00 Completed ECG Data Tracing #1: I reviewed this ECG and interpreted as documented below: Sinus rhythm, no obvious ST elevation, artifact markedly limits interpretation ECG initial impression date: 07/25/25 ECG initial impression time: 05:51 HEART Score History (anamnesis): Slightly suspicious ECG: Non-specific disturbance Age: 45-65 years Risk factors: Atherosclerosis history Troponin: 1-3x normal limit HEART Score: 5 Medical Decision Narrative: 55-year-old female with history of ESRD on TTS dialysis, poorly controlled diabetes, CAD, CHF presents for hypoxia and shortness of breath. History was obtained via interactive discussion with patient family chart review. On arrival, patient is afebrile, normotensive, satting in the 60s on nasal cannula, in severe respiratory distress, moving all extremities spontaneously. Full physical exam performed and significant for crackles and rhonchi throughout with accessory muscle use Differential includes but is not limited to pneumonia, aspiration, heart failure, ACS, PE, COPD exacerbation. Patient was given DuoNeb x 3 for symptomatic management and correction of underlying abnormalities. Patient was immediately placed on BiPAP with improvement in her oxygenation and work of breathing. Workup initiated including CBC CMP troponin EKG chest x-ray D-dimer blood cultures VBG. On re-evaluation, patient feeling better from respiratory perspective, requesting to come off the BiPAP. Patient was unable to tolerate nasal cannula due to hypoxia, but is satting mid 90s on the nonrebreather currently. Laboratory workup independently interpreted by me and significant for creatinine 2.8, mild hyponatremia, hypocalcemia, troponin at baseline for patient, BNP markedly elevated. VBG with mild respiratory acidosis Imaging independently interpreted by me and significant for significant consolidation within the right lung, left lung poorly inflated. See radiology read for full review of final results. CT chest to assess for PE was considered, but deemed unnecessary due to obvious pneumonia on x-ray, negative PE scan within the last week. Given patient history, exam and workup, patient's presentation most likely represents acute on chronic hypoxic respiratory failure secondary to pneumonia, complicated by ESRD. Patient was initiated on vancomycin and Zosyn for treatment of pneumonia. We are calling [facility] for transfer as we cannot manage the patient's renal failure at our facility. We were able to contact [facility] and Dr. Askew who accepted the patient in transfer to their ICU. Procedures Risk/Benefits of Procedure(s) Were Explained: Yes Critical Care Critical Care Time Critical Care Time: Yes Attestation: On 07/25/25, the high probability of a clinically significant, sudden or life threatening deterioration of the following system(s) required my full and direct attention, intervention and personal management. The time I documented below is in addition to time spent performing reported procedures but includes the following listed in this critical care notation. Total Time Total Critical Care Time: 50
[2025-07-25 06:02] LABS: Coronavirus 19, PCR Not Detected (NotDetected); Influenza A, PCR Not Detected (NotDetected); Influenza B, PCR Not Detected (NotDetected)
--- NOTE | 2025-07-25 06:02 | XR_ITS ---
PROCEDURE INFORMATION: Exam: XR Chest Exam date and time: 07/25/2025 6:10 AM Age: 55 years old Clinical indication: Shortness of breath; Additional info: SOA, hf, pneumonia TECHNIQUE: Imaging protocol: Radiologic exam of the chest. Views: 1 view. COMPARISON: CT ANGIO CHEST PE PROTOCOL 07/22/2025 2:35 AM FINDINGS: Lungs: Bilateral mid/lower lung opacities may be infectious or inflammatory. Low lung volumes. Mild interstitial and vascular prominence. Pleural spaces: Suspect small bilateral pleural effusions. Heart/Mediastinum: Cardiomegaly. Bones/joints: Prior median sternotomy for CABG. Other findings: Leftward rotation. IMPRESSION: Findings are suggestive of a combination of infection and pulmonary edema/possible CHF.
[2025-07-25 06:09] LABS: Lactate Venous 1.2 mmol/L (0.4-2.0); VBG HCO3 22.6 mmol/L (23-30); VBG PH 7.25 mmol/L (7.31-7.41); VBG PO2 45.2 mmol/L (28-40)
[2025-07-25] MEDS: IPRATROPIUM/ALBUTEROL 3 ML NEB 9 ML IH (06:15)
[2025-07-25 06:16] LABS: Hematocrit 30.2 % (37.0-47.0); Hemoglobin 9.1 g/dL (12.2-16.2); Immature Granulocytes % 1.6 %; Mean Corpuscular HGB Conc 30.1 g/dL (31.8-35.4); Mean Corpuscular Hemoglobin 29.6 pg (27.0-31.2); Mean Corpuscular Volume 98.4 fl (81-99); Nucleated Red Blood Cells % 0.4 %; Platelet Count 63 K/mm3 (142-424); Red Blood Count 3.07 M/mm3 (4.20-5.40); Red Cell Distribution Width-SD 65.3 fL; White Blood Count 7.7 K/mm3 (4.8-10.8)
[2025-07-25 06:19] LABS: VBG PCO2 52.4 mmol/L (35-51)
--- NOTE | 2025-07-25 06:20 | PC.NURSE ---
Limb restriction band placed on Left arm d/t active fistula
[2025-07-25 06:22] LABS: Alanine Aminotransferase 20 U/L (12-78); Albumin Level 3.5 g/dl (3.5-5.0); Albumin/Globulin Ratio 0.9 (1.1-1.8); Alkaline Phosphatase 174 U/L (38-126); Anion Gap 16.9 mEq/L (5-15); Aspartate Amino Transferase 37 U/L (14-36); Bilirubin,Total 1.1 mg/dl (0.2-1.3); Blood Urea Nitrogen 61 mg/dl (7-17); Calcium 7.9 mg/dl (8.4-10.2); Carbon Dioxide 23 mmol/L (22.0-30.0); Chloride 97 mmol/L (98-107); Creatinine Clearance Estimated 20 mL/min (50-200); Creatinine,Serum 2.80 mg/dl (0.52-1.04); Estimated Glomerular Filt Rate 17 ml/min (>60); GFR (African American) 21 ML/MIN (>60); Globulin 3.7 g/dL (1.3-3.2); Glucose 121 mg/dl (74-100); Potassium 4.9 mmoL/L (3.5-5.1); Sodium 132 mmol/L (136-145); Total Protein,Serum 7.2 g/dl (6.3-8.2)
[2025-07-25 06:26] LABS: D-Dimer 2.30 ug/mL (0.0-0.5)
[2025-07-25 06:34] LABS: Troponin I 0.06 ng/ml (0.00-0.034)
--- NOTE | 2025-07-25 06:40 | PC.NURSE ---
Addendum entered by GERSON Wilkinson 07/25/25 06:43: stated they would call back Original Note: Called [facility] to get a transfer to [place], stated they
[2025-07-25] MEDS: SODIUM CHLORIDE 0.9% IV (06:49)
[2025-07-25] MEDS: PIPERACILLIN IV (06:49)
[2025-07-25] MEDS: TAZO IV (06:49)
[2025-07-25 06:59] LABS: NT Pro Brain Natriuretic Pep. 302000 pg/mL (0-125)
[2025-07-25] MEDS: VANCOMYCIN/WATER FOR INJ (PEG) 1.25 GM/250 ML PIGGYBACK IV (07:15)
--- NOTE | 2025-07-25 08:30 | PC.NURSE ---
calling ems at this time
--- NOTE | 2025-07-25 08:30 | PC.NURSE ---
0820 Report called to Corinne GUIDRY at [facility]
[2025-07-25 10:03] LABS: Troponin I 0.06 ng/ml (0.00-0.034)
== END 2025-07-25 09:33 | disposition other institution (70) ==
PROVIDERS: Emergency Provider Emergency Medicine
DX: J96.01 Acute respiratory failure with hypoxia (principal); J96.02 Acute respiratory failure with hypercapnia; J18.9 Pneumonia, unspecified organism; E87.29 Other acidosis; N18.6 End stage renal disease; I12.0 Hypertensive chronic kidney disease with stage 5 chronic kidney disease or end stage renal disease; I11.0 Hypertensive heart disease with heart failure; I50.9 Heart failure, unspecified; Z87.891 Personal history of nicotine dependence; Z99.2 Dependence on renal dialysis
CPT/HCPCS: 71045; 80053; 82803; 83880; 84484; 85025; 85378; 87040; 87636; 93005; 96365; 96366; 99285; 99291; J2543; J3375

== ENCOUNTER 2025-07-29 11:48 | Emergency (ER) | payer MEDICARE, SELFPAY ==
--- OUTSIDE RECORDS SUMMARY | 2025-06-01 15:48 | XMS_ITS | Encounter Summary ---
Author Organization [facility] [place] Address [address] [place] [address] Care Team Providers Care Insurance Agency Owner Name Role Phone Rosemarie Riley APRN Primary Care Provider [phone] Haydee Mccloud Unavailable Unavailable Reason for Referral * Consultation (Routine) - Authorized Specialty Diagnoses / Procedures Referred By Rebeca reynolds Referred To Contact Ophthalmology Diagnoses History of glaucoma Mayra Rogers MD [address] [place] [address] Phone: tel: fax: Referral ID Status Reason Start Date Expiration Date Visits Requested Visits Authorized [id number] Authorized Specialty Services Required 06/10/2025 12/10/2026 1 1 Scheduling Instructions Please schedule for history of neovascular glaucoma and vitreous hemorrhage of left eye * Consultation (Routine) - Authorized Specialty Diagnoses / Procedures Referred By Rebeca t Referred To Contact Cardiology Diagnoses Coronary artery disease involving coronary bypass graft of [place] heart without angina pectoris Chronic congestive heart failure, unspecified heart failure type Mayra Rogers MD [address] [place] [address] Phone: tel: fax: Referral ID Status Reason Start Date Expiration Date Visits Requested Visits Authorized [id number] Authorized Specialty Services Required 06/10/2025 12/10/2026 1 1 * Consultation (Routine) - Pending Review Specialty Diagnoses / Procedures Referred By Contac t Referred To Contact Pulmonology Diagnoses Acute hypoxic respiratory failure Chronic obstructive pulmonary disease with acute exacerbation (CMS/HCC) Mayra Rogers MD [address] [place] [address] Phone: tel: fax: [facility] [address] [place] [address] Phone: tel: fax: Referral ID Status Reason Start Date Expiration Date V isits Requested Visits Authorized [id number] Pending Review 06/10/2025 12/10/2026 1 1 * Consultation (Routine) - Authorized Specialty Diagnoses / Procedures Referred By Rebeca reynolds Referred To Contact Family Medicine Diagnoses End-stage renal disease needing dialysis (CMS/HCC) Severe protein-calorie malnutrition (CMS/HCC) Hypertension, unspecified type Hypothyroidism, unspecified type Hyperlipidemia, unspecified hyperlipidemia type Anemia, unspecified type Mood disorder (CMS/HCC) Mayra Rogers MD [address] [place] [phone] Phone: tel: fax: Referral ID Status Reason Start Date Expiration Date V isits Requested Visits Authorized [id number] Authorized 06/10/2025 12/10/2026 1 1 * Imaging (Routine) - Closed Specialty Diagnoses / Procedures Referred By Rebeca reynolds Referred To Contact Radiology Diagnoses ESRD (end stage renal disease) Unspecified complication of cardiac and vascular prosthetic device, implant and graft, subsequent encounter Procedures IR Angiogram ArterioVenous Shunt Medina Ferris MD [address] [address] Phone: tel: fax: Referral ID Status Reason Start Date Expiration Date Visits Re quested Visits Authorized [id number] Closed 05/13/2025 11/12/2026 1 1 * Home Health (Routine) - Authorized Specialty Diagnoses / Procedures Referred By Rebeca reynolds Referred To Contact Home Health Services Diagnoses Acute pulmonary edema (CMS/HCC) Mayra Rogers MD [address] [place] [address] Phone: tel: fax: Referral ID Status Reason Start Date Expiration Date Visits Requested Visits Authorized [id number] Authorized Specialty Services Required 06/04/2025 12/04/2026 999 999 Reason for Visit * Reason Comments Fistula problem * Auth/Cert (Routine) Specialty Diagnoses / Procedures Referred By Rebeca reynolds Referred To Contact Diagnoses Acute pulmonary edema (CMS/HCC) GI bleed End-stage renal disease needing dialysis (CMS/HCC) Mayra Rogers MD [address] [place] [address] Phone: tel: fax: [facility] [address] [place] [address] Phone: tel: Referral ID Status Reason Start Date Expiration Date Visits Re quested Visits Authorized [id number] 1 1 Encounter Details Date Type Department Care Team (Late st Contact Info) Description 06/01/2025 4:48 PM EDT - 06/10/2025 4:54 PM EDT Hospital Encounter [facility] [address] [place] [address] Faiza Garvin MD [address] [place] [phone] Senthil Carnes MD [address] [place] [phone] Neno Yancey MD [address] [place] [address] Mayra Rogers MD [address] [place] [phone] Acute pulmonary edema (CMS/HCC) (Primary Dx); End-stage [...] artery disease involving coronary bypass graft of [place] heart without angina pectoris; History of glaucoma; [...] and Family Not on file 06/25/2024 Attends [employer] Not on file 06/25 Active Member [...] any time in the past 12 m [facility], were you homeless or living in a half-way (including now)? No 06/03/2025 [facility] Utilities Answer Date Recorded In the [...] drink first t jacqueline in the morning (EYE-RN LPN LVN) to steady your nerves or to get [...] EDT Task Description: Mayra Rogers MD [facility] Providers Only Attach patient's chart to the message first, then use F2 to complete the form Patient name: Mar Waldron Task: Schedule outpatient appointment of discharged or ED patient and Other: refer to pulmonary rehab. Looking to go to either [facility] (fax: [phone]) or [place] ( ) Task description: Refer to pulmonary rehab, family called back after discharge and wanted a pulmonary rehab closer to home. Ordering provider: Myara Rogers MD How soon?: 2 weeks Request NN callback?: Yes NN call back specifics?: Call and let them know what rehab accepted her Date of discharge: 06/10/2025 Readmission risk score?: High Appointment Description: 06/14/25 9:25am Nurse Navigator NN reviewed request for Pulm Rehab in [place] or [place] within the next 2 weeks. Order for PFT in [facility]. NN sent secure chat to Serena Naranjo RN in Pul to request assistance with getting PFT within the next week as need results to get Ms. Waldron into Pul Rehab. NN willfollow up on status of PFT appt. 06/17/2025 at 1319: NN reviewed [facility] and PFT is scheduled for 07/05. Precert is authorized. NN called [facility] Pul [facility] (ph: [phone]) and received voicemail. 06/18/2025 at 0940: NN called [facility] and was advised they do [...] Everywhere and Ms. Waldron was discharged from [facility] on 06/29 after presenting on 06/23 for [...] lab and Urology Clinic, but he advised [facility] them and will call soon to [...] with getting PFT rescheduled. NN updated Dr. oRgers Uro appt is also not rescheduled, pt [...] taken: Clinical Note Signed * Анна MeadADELIA Juan Deedash Mayra PlattCHAO - 06/10/2025 2:59 PM EDT Images from the original note were not included. [id number] Pulmonary Edema Your healthcare provider has told [...] ankle Last Reviewed Date: 2023 00:00:00 ?? 1713-0724 [employer]. All rights reserved. This information is not [...] Note Mar Waldron 55 y.o. female CSN: [id number] Admission: 06/01/2025 4:48 PM Primary Problem: Acute hypoxic respiratory failure Primary Expedition Supervisor: Primary Caregiver: Family Assistance Available at Discharge: Current Outpatient/Agency/Support Group: outpatient hemodialysis Availability of Care Givers (#Hours): 24 hours (Family can provide 24/7 care- Patient lives with 2 adult sons and [id number]) Family/Expedition Supervisor(s) Willingness Assessed to care for patient at home: Yes Family/Expedition Supervisor(s) Readiness Assessed to care for patient at [...] understanding. CM will send DC Summary To [facility]- Patient has current HD chair on MWF. CM updated [place]- Milagros, no longer needing KELLY. CM went over that patient is only uses about 25% of patient effort with transfers. They stated that's better than when she came here, and can transfer patient and provide ride home without difficulty-denied any needs. CM will continue to follow until discharged. Addendum 6636: CM called and spoke to Kaylah [facility] and informed her of discharge today and faxed DC Summary to f: [phone]. Rosemary Song * Discharge Summary - Bobby Rose MD - 06/10/2025 2:41 PM EDT Hospitalization Admit Date/Time: 06/01/2025 4:48 PM Admitting Attending: Mayra Rogers Discharge Date: 06/10/2025 Discharge Attending Physician: Mayra Rogers MD PCP name and Address: Rosemary Rosemarie Ugarte, MELT ROOM OPERATOR [address] [facility] / [place] [address] Referring provider name and address: No referring provider defined for this encounter. Chief Concern, Brief History of Present Illness, and Hospital Course Mar Waldron is a 55-year-old female appearing much older than stated age with past medical historyof and uric end-stage renal disease on intermittent hemodialysis (MWF at [facility]), undifferentiated renal mass, hypertension, reported COPD, coronary [...] to missed dialysis - Dialysis chair at [facility] on a MWF schedule - Dry weight [...] and management per PCP #CAD w/ prior OR with COSME to mLAD with prior stenting [...] Chronic pain: Discharge with 7 days of [place] due to missing pain clinic appointment while [...] Your Medications These medications were sent to [facility] [address] [address] aspirin 81 MG chewable tablet carvedilol 12.5 MG tablet hydrALAZINE 25 MG tablet levothyroxine 88 MCG tablet naloxone 4 mg/0.1 mL nasal spray oxyCODONE-acetaminophen 10-325 MG tablet Discharge Diagnosis Medical Problems Active and Resolved Hospital Problems Hospital ESRD (end stage renal disease) ([facility]) CHF (congestive heart failure) ([facility]) CAD (coronary artery disease) Anemia Severe protein-calorie malnutrition ([facility]) HTN (hypertension) HLD (hyperlipidemia) Hypothyroidism Mood disorder ([facility]) History of glaucoma Chronic obstructive pulmonary disease with acute exacerbation ([facility]/HCC) RESOLVED: Pleural effusion * (Principal) RESOLVED: Acute hypoxic respiratory failure RESOLVED: Acute pulmonary edema ([facility]/HCC) RESOLVED: GI bleed RESOLVED: Acute encephalopathy Post [...] Center 07/05/2025 1:00 PM [facility] Goldberg [facility] Results Pending At Discharge Pertinent Physical [...] - 06/10/2025 1:22 PM EDT Diagnosis Code: 71940 Subjective: Patient seen and evaluated on HD. [...] flows are acceptable. BFR: 300-400, DFR: 600-800. Marcela Andrew MD No therapy plan of the [...] Active Problems: ESRD (end stage renal disease) ([facility]) CHF (congestive heart failure) ([facility]) Pleural effusion Acute pulmonary edema ([facility]) GI bleed Mar Waldron is a 55 [...] after resuming dialysis - Dialysis chair at [facility] on a MWF schedule - Dry weight 59kg PLAN - Renvela 800 mg TID with meals - Nephrology managing MWF inpatient dialysis #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, Malnutrition, & Inability to Perform ADLs - PT/OT recommended subacute rehab: Referral sent to [place] - Follow-up bed availability on Tuesday #CAD w/ prior OR with COSME to mLAD with prior stenting [...] syndrome: daily CMP, Mg, phos monitoring - Sales And Operations Trainee following - Zack once daily, boost three [...] MD * Progress Notes - Nai Argueta, VP DIRECTOR OF FINANCE - 06/09/2025 8:24 AM EDT Physical Therapy Treatment Patient Name: Mar Waldron Today's Date: 06/09/2025 Total Treatment Time: 24 min PT Discharge Recommendations: Subacute rehab Equipment Recommended: Defer to facility Subjective The patient states, I am doing okay. Participants in Care Family/Caregiver Present: No Pharmaceutical Sales Specialist: Not Applicable Presentation Oxygen: Supplemental oxygen Nasal [...] sequencing. Bed Mobility Exam: Rolling/Turning Level of [place]: Minimum assist (75% patient effort) Physical/Nonphysical Assist: Additional assist utilized for safety, Verbal Cues, Set-up required Assistive Device: Bed rails, Other (drawsheet) Bed Mobility Exam: Scooting/Bridging Level of [place]: Dependent (to scoot to edge of bed in sitting) Physical/Nonphysical Assist: Additional assist utilized for safety, Verbal Cues, Set-up required Assistive Device: Other (drawsheet) Bed Mobility Exam: Supine to Sit Level of [place]: Maximum assist (25% patient's effort) Physical/Nonphysical Assist: Additional assist utilized for safety, HOB elevated, Verbal Cues, Set-up required Assistive Device: Other (drawsheet) Transfers Transfer Intervention: Verbal cues provided for correct bilateral hand and foot placement during sit to stand transfers. Transfer Exam: Sit to stand Level of [place]: Maximum assist (25% patient's effort) Physical/Nonphysical Assist: Additional assist utilized for safety, Verbal Cues, Set-up required Assistive Device: Hand held assist Transfer Exam: Stand to Sit Level of [place]: Maximum assist (25% patient's effort) Physical/Nonphysical Assist: Additional assist utilized for safety, Verbal Cues, Set-up required Assistive Device: Hand held assist Transfer Exam: Bed to Chair/Chair to Bed Level of [place]: Maximum assist (25% patient's effort) Physical/Nonphysical Assist: [...] a.m. Participants in Care Family/Caregiver Present: No Pharmaceutical Sales Specialist: Not Applicable Presentation Oxygen Therapy: Supplemental oxygen [...] Mobility Bed Mobility Exam: Rolling/Turning Level of [place]: Minimum assist (75% patient effort) Physical/Nonphysical Assist: Additional assist utilized for safety, Verbal Cues, Set-up required Bed Mobility Exam: Scooting/Bridging Level of [place]: Dependent Physical/Nonphysical Assist: Additional assist utilized for safety, Verbal Cues, Set-up required Bed Mobility Exam: Supine to Sit Level of [place]: Maximum assist (25% patient's effort) Physical/Nonphysical Assist: Additional assist utilized for safety, HOB elevated, Verbal Cues, Set-up required Bed Mobility Exam: Sit to Supine Level of [place]: Maximum assist (25% patient's effort) Physical/Nonphysical Assist: Additional assist utilized for safety Transfers Transfer Exam: Sit to stand Level of [place]: Maximum assist (25% patient's effort) Physical/Nonphysical Assist: Additional assist utilized for safety, Verbal Cues, Set-up required Assistive Device: Hand held assist Transfer Exam: Stand to Sit Level of [place]: Maximum assist (25% patient's effort) Physical/Nonphysical Assist: Additional assist utilized for safety, Verbal Cues, Set-up required Assistive Device: Hand held assist Transfer Exam: Bed to Chair/Chair to Bed Level of [place]: Maximum assist (25% patient's effort) Physical/Nonphysical Assist: [...] Continue OT tx plan until discharge to [facility] setting. Goals OT GOAL DETAILS Goal [...] possible discharge to subacute rehab. Jeremy Perez [phone] Patient states that she has lost her [...] 06/09/2025799) Pain Management Interventions: medication (see MAR) [id number]-kfc-[id number] dosing utilized awakened for pain meds per patient request ambulation/increased activity breathing exercises care clustered 06/08/20252112 by Hazel Pham RN Flowsheets (Taken 06/08/2025 1629) Pain Management Interventions: medication (see MAR) jlvpwo-mkr-fjior dosing utilized awakened for pain meds per [...] BADL personal objects within reach 06/08/20252112 by Hazel Pham RN Flowsheets Taken 06/08/20252112 Self-Care Promotion: [...] 1629) Pain Management Interventions: medication (see MAR) miuweu-leh-xghzp dosing utilized awakened for pain meds per [...] Active Problems: ESRD (end stage renal disease) ([facility]) CHF (congestive heart failure) ([facility]) Pleural effusion Acute pulmonary edema ([facility]) GI bleed Mar Waldron is a 55 [...] after resuming dialysis - Dialysis chair at [facility] on a MWF schedule - Dry weight 59kg PLAN - Renvela 800 mg TID with meals - Hold other scheduled dialysis medications at this time - Nephrology following #Chronic anemia and thrombocytopenia - Anemia and thrombocytopenia better explained by ESRD PLAN - Further workup outpatient, possible need for UMESH in the futur #CAD w/ prior OR with COSME to mLAD with prior stenting [...] Malnutrition - High Risk for Refeeding - Sales And Operations Trainee following - Zack once daily, boost three [...] Note Mar Waldron 55 y.o. female CSN: [id number] Admission: 06/01/2025 4:48 PM Primary Problem: Acute hypoxic respiratory failure SW received hand off to follow up on referral with [facility] at [facility] [phone] 104. SW left for call back. will update when call back is received. Mayra Brody BUILDING ILLUMINATING ENGINEER, VICE PRESIDENT DIGITAL STRATEGIST Case Management * Care Plan - Aranza Santos RN - 06/08/2025 4:53 AM EDT Problem: Adult Inpatient Plan of Care Goal: Plan of Care Review Flowsheets (Taken 06/08/2025 9678) Progress: no change Plan of Care Reviewed [...] Note Mar Waldron 55 y.o. female CSN: [id number] Room/Bed 107/305T Nutrition evaluation type: assessment Reason for evaluation: [facility] Hospital course: 55 yoF presents to ED 06/01 with concern for thrombosed fistula. Pt son recently moved her from [place] to [place] d/t concerns of overall health and well-being: [...] Supplemental oxygen O2 Delivery Method: Nasal cannula Rhodelia Coma Scale Score: 14 Ranjeet Scale Score: [...] (Calculated): 20.82 Weight Evaluation: Normal (BMI 18.5-24.9) [place] Body Weight (kg): 61.3 Percent [place] Body Weight: 97 Estimated Needs: Metabolic Cart Study Results: Current Nutrition Intake: Diet Supplements: None Diet Order: Adult Diet Diet Texture: Regular Electrolyte Restriction: Renal Percent Meals Eaten (%): None recorded to review Diet Experience and Nutrition History: Diet Education Provided: Will monitor Pertinent home medications: atorvastatin, calcitriol, levothyroxine, protonix Jehovah'S Witness needs: Nutrition Focused Physical Exam: Unable to [...] HLD, and HFpEF who was admitted to [facility] on 06/02 for concerns of thrombosed fistula. Outpatient HD: - Schedule: MWF - Dialysis Unit: [facility] - Outpatient Helicopter Pilot: Dr. Summers - Residual renal functions: Minimal [...] Jenae Jones MD Nephrology Fellow PGY-5 Page: [phone] [1] Patient Active Problem List Diagnosis Volume [...] Dulcolax later. Stillwants subacute rehab placement at [place]. Objective Objective Last Recorded Vitals Blood pressure [...] Active Problems: ESRD (end stage renal disease) ([facility]) CHF (congestive heart failure) ([facility]) Pleural effusion Acute pulmonary edema ([facility]) GI bleed Mar Waldron is a 55 [...] to missed dialysis - Dialysis chair at [facility] on a MWF schedule - Dry weight [...] #CAD w/ prior stenting - Hx of OR with COSME to mLAD, distant - Home [...] Malnutrition - High Risk for Refeeding - Sales And Operations Trainee following - Zack once daily, boost three times a day #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, Malnutrition, & Inability to Perform ADLs - PT/OT recommended subacute rehab: Referral sent to [place] #Stage 3 Pressure Ulcer - Wound care [...] stop tx and will try again tomorrow. Contactedscsabine GUIDRY and explained the situation and care of infiltrated HD accesses. * Progress Notes - Sobia Jeffers RN - 06/06/2025 1:25 PM EDT Patient receiving HD today and tomorrow; Cm sent referral to [facility] reviewing/ awaiting response. CM will continue to [...] ESRD on HD, HTN, COPD, CAD s/p CABG/PCI/OCSME, HLD, and HFpEF who was admitted to [facility] on 06/02 for concerns of thrombosed fistula. Outpatient HD: - Schedule: [facility] - Dialysis Unit: [facility] - Outpatient Helicopter Pilot: Dr. Summers - Residual renal functions: Minimal [...] Jenae Jones MD Nephrology Fellow PGY-5 Page: [phone] [1] Patient Active Problem List Diagnosis Volume overload ESRD (end stage renal disease) (CMS/HCC) CHF (congestive heart failure) (CMS/[facility]) Pleural effusion Acute hypoxic respiratory failure Acute [...] Active Problems: ESRD (end stage renal disease) ([facility]) CHF (congestive heart failure) ([facility]) Pleural effusion Acute pulmonary edema ([facility]) GI bleed Mar Waldron is a 55 [...] to missed dialysis - Dialysis chair at [facility] on a MWF schedule - Dry weight [...] need for UMESH #CAD - Hx of OR with COSME to mLAD, distant - Home [...] Malnutrition - High Risk for Refeeding - Sales And Operations Trainee consulted #Adult Failure To Thrive with Weight [...] Promotion: independence encouraged BADL personal objects within [facility] Intervention: Promote Injury-Free Environment Flowsheets (Taken 06/05/2025829) Safety Promotion/Fall Prevention: activity supervised assistive device/personal items within reach fall prevention program maintained clutter-free environment maintained mobility aid in [facility] lighting adjusted room organization consistent nonskid shoes/slippers [...] pt was not appropriate for education. Left [facility]'s Renal Nutrition handouts at bedside for [...] Active Problems: ESRD (end stage renal disease) ([facility]) CHF (congestive heart failure) ([facility]) Pleural effusion Acute pulmonary edema ([facility]) GI bleed Mar Waldron is a 55 y.o. female admitted for acute hypoxic respiratory failure This condition poses an acute threat to life/bodily function. 06/05/25: Patient remains comfortable and stable on 2 L nasal cannula in setting of acute hypoxic respiratory failure. Successful angiogram with declot of left upper extremity fistula; dialyze yesterday. Subacute rehab referral sent to [facility]. Plan for dialysis 06/06 and 06/07; anticipate [...] to missed dialysis - Dialysis chair at [facility] on a MWF schedule - Dry weight [...] Further workup outpatient #CAD - Hx of OR with COSME to mLAD, distant - Home [...] Malnutrition - High Risk for Refeeding - Sales And Operations Trainee consult #Adult Failure To Thrive with Weight [...] family request, Subacute rehab referral sent to [place] for review. x [phone] . CM will continue to follow. * Progress Notes - Priscila Naranjo N - 06/05/2025 11:33 AM EDT Occupational Therapy Treatment Patient Name: Mar Waldron Today's Date: 06/05/2025 OT Discharge Recommendations: Subacute rehab Equipment Recommended: Defer to facility Subjective Pt receptive to therapy presence. Reports feeling sleepy. Participants in Care Family/Caregiver Present: No Pharmaceutical Sales Specialist: Not Applicable Presentation Oxygen Therapy: Supplemental oxygen [...] Mobility Bed Mobility Exam: Scooting/Bridging Level of [place]: Dependent (scoot to EOB in sitting) Physical/Nonphysical Assist: Verbal Cues, Minimal cues, Additional assist utilized for safety Bed Mobility Exam: Supine to Sit Level of [place]: Maximum assist (25% patient's effort) Physical/Nonphysical Assist: Set-up required, Verbal Cues, Moderate cues, HOB elevated, Additional assist utilized for safety Transfers Transfer Interventions: Patient currently unable to perform transfers, endorsed not being able to stand at baseline and needing assistance to transfer to wheelchair. Transfer Exam: Sit to stand Level of [place]: Maximum assist (25% patient's effort) Physical/Nonphysical Assist: Verbal Cues, Nonverbal cues (demo/gestures), Additional assist utilized for safety Assistive Device: Hand held assist Transfer Exam: Stand to Sit Level of [place]: Maximum assist (25% patient's effort) Physical/Nonphysical Assist: Verbal Cues, Nonverbal cues (demo/gestures), Set-up required Assistive Device: Hand held assist Transfer Exam: Bed to Chair/Chair to Bed Level of [place]: Dependent Physical/Nonphysical Assist: Verbal Cues, Nonverbal cues [...] go out except for doctor appointments) Mobility [place] Assist with wheelchair propulsion History of Falls [...] session. PARTICIPANTS IN CARE Visitors Present No, Pharmaceutical Sales Specialist (if applicable) OBJECTIVE PAIN Pt denies pain. [...] at session concusion. BED MOBILITY Level of [place] Physical/Non- physical Assist Adaptive Equipment Utilized Rolling/ [...] to return to sitting. TRANSFERS Level of [place] Physical/Non- physical Assist Adaptive Equipment Utilized Sit [...] climbing 3-5 steps with a railing?: Unable [facility] 6-Clicks Mobility Assessment Total : 10 ASSESSMENT [...] HLD, and HFpEF who was admitted to [facility] on 06/02 for concerns of thrombosed fistula. Outpatient HD: - Schedule: MWF - Dialysis Unit: [facility] - Outpatient Helicopter Pilot: Dr. Summers - Residual renal functions: Minimal [...] Continue home anti-hypertensives Will assess need for MUESH; Hgb currently 7.9 - Please continue home Phos binders (Renvela) when tolerating PO - Recommend low K, low P diet while inpatient - Please renally dose medications for iHD Nephrology will continue to follow for the duration of this admission. Please call or page with anyquestions. Jenae Jones MD Nephrology Fellow PGY-5 Page: [phone] [1] Patient Active Problem List Diagnosis Volume overload ESRD (end stage renal disease) ([facility]) CHF (congestive heart failure) ([facility]) Pleural effusion Acute hypoxic respiratory failure Acute pulmonary edema ([facility]) GI bleed [2] aspirin, 81 mg, Oral, [...] Active Problems: ESRD (end stage renal disease) ([facility]) CHF (congestive heart failure) ([facility] Pleural effusion Acute pulmonary edema ([facility]) GI bleed Mar Waldron is a 55 [...] that patient has a dialysis chair at [facility] a [facility] schedule, subacute rehab referral sent to [facility] in [facility]. #Acute hypoxic respiratory failure likely due to [...] dialysis #Anion Gap - Dialysis chair at [facility] on a MWF schedule - Dry weight [...] symptoms of bleeding #CAD - Hx of OR with COSME to mLAD, distant - Home [...] Malnutrition - High Risk for Refeeding - Sales And Operations Trainee consult #Adult Failure To Thrive with Weight [...] been discussed with the patient and/or their financial sales representative. All questions answered and they agree [...] injection 40 mg 40 mg Intravenous BID Flaok Rai MD 40 mg at 06/04/25 0842 [...] her dialysis unit on Tuesday for scheduled BUNDLE HELPER however had issues with inabilityto access fistula. [...] Resource Strain: High Risk (06/17/2024) Received from [facility] ([place] Financial Resource Strain How hard is [...] No Physical Activity: Inactive (06/17/2024) Received from [facility] ([place] Physical Activity Number of minutes of exercise per week : 0 Stress: No Stress Concern Present (04/15/2024) Received from [facility] ([place] Stress Feeling stress past 2 weeks: 1 Social Connections: Unknown (06/25/2024) Social Connection and Isolation Panel Frequency of Communication with Friends and Family: Not on file Frequency of Social Gatherings with Friends and Family: Not on file Attends Jehovah'S Witness Services: Not on file Active Member of Clubs or Organizations: Not on file Attends Club or Organization Meetings: Not on file Marital Status: Living with partner Intimate Partner Violence: Not At Risk (07/02/2024) Received from [facility] Abuse Screen Feels Unsafe at Home [...] - Dialysis Unit: [facility] - Outpatient Helicopter Pilot: Dr. Tiny Summers - Residual renal functions: [...] Spencer MD Department of Nephrology PGY-4 Pager: [phone]; Epic Chat Preferred [1] Past Medical History: Diagnosis Date Arthritis CHF (congestive heart failure) ([facility]) Chronic renal failure Coronary artery disease Diabetes mellitus ([facility]) HTN (hypertension) Hypothyroidism Renal cancer ([facility]) [2] Patient Active Problem List Diagnosis Volume overload ESRD (end stage renal disease) ([facility]) CHF (congestive heart failure) ([facility]) Pleural effusion Acute hypoxic respiratory failure [3] [...] Rfl: 0 ergocalciferol (Vitamin D-2) 1.25 MG (12469 UT) capsule, Take 1 capsule (50,000 Units) [...] HLD, and HFpEF who was admitted to [facility] on 06/02 for concerns of thrombosed fistula. Outpatient HD: - Schedule: MWF - Dialysis Unit: [facility] - Outpatient Helicopter Pilot: Dr. Summers - Residual renal functions: Minimal [...] Jenae Jones MD Nephrology Fellow PGY-5 Page: [phone] [1] Patient Active Problem List Diagnosis Volume overload ESRD (end stage renal disease) ([facility]) CHF (congestive heart failure) ([facility]) Pleural effusion Acute hypoxic respiratory failure Acute pulmonary edema ([facility]) GI bleed [2] aspirin, 81 mg, Oral, [...] that patient has a dialysis chair at [facility] on a MWF schedule. Updated provided to dialysis clinic. CM will continue to follow. Update 11:38 Family requested referral be sent to [place] in [facility] [phone]. CM called and left voice mail. * [...] please give family a phone call. [employer] pics attached to chart! Thanks! Question Answer [...] HLD, and HFpEF who was admitted to [facility] on 06/02 for concerns of thrombosed/malfunctioning fistula. Outpatient HD: - Schedule: MW - Dialysis Unit: [facility] - Outpatient Helicopter Pilot: Dr. Summers - Residual renal functions: Minimal [...] Jenae Jones MD Nephrology Fellow PGY-5 Page: [phone] [1] Patient Active Problem List Diagnosis Volume overload ESRD (end stage renal disease) ([facility]) CHF (congestive heart failure) ([facility]) Pleural effusion Acute hypoxic respiratory failure Acute pulmonary edema ([facility]) GI bleed [2] aspirin, 81 mg, Oral, [...] Mar Vanessa Chivo 55 y.o. female CSN: [id number] Admission: 06/01/2025 4:48 PM Primary Problem: Acute hypoxic respiratory failure Personal Development Coach reviewed chart and spoke with sonWade to [...] Contact: Briana,Wade Mobile Relation: Son Preferred language: Arabic Pharmaceutical Sales Specialist needed? No Secondary Emergency Contact: Jeremy Perez Mobile Relation: Son Insurance: Primary Visit Coverage Payer Plan Sponsor Code Group Number Group Name HUMANA MEDICARE HUMANA GOLD PLUS [id number] Primary Visit Coverage Subscriber Subscriber ID Subscriber Name Subscriber N Subscriber Address [id number] Mar Waldron [id number] [place] [address] Patient information: Primary Caregiver: Family Support System: Immediate family Daily Living Activities: Functional Status: Moderate assistance Living Arrangements: Family Type of Residence: Private residence [address] [place] [address] Smoker in the Home?: N/A Current DME: [...] / Home Infusion / Outpatient Dialysis Services: [facility] D[facility] Living Will/Advance Directive/Power of [place] Binder Coverer /Guardian: Additional Comments: Patient with some confusion. CM talked with sonWade to obtain initial assessment. He states patient was living in [place] until a month ago and he moved [...] Active Problems: ESRD (end stage renal disease) ([facility]) CHF (congestive heart failure) ([facility] Pleural effusion Acute pulmonary edema ([facility]) GI bleed Mar Waldron is a 55 [...] 05/29 - Follows with Dr Summers in [place] - Dry weight 59kg, has AVF PLAN [...] - H/H q8h #CAD - Hx of OR with COSME to mLAD, distant - Home [...] Malnutrition - High Risk for Refeeding - Sales And Operations Trainee consult #Adult Failure To Thrive with Weight [...] renal disease on intermittent hemodialysis (MWF at [facility]), undifferentiated renal mass, hypertension, reported COPD, coronary [...] to missed dialysis - Dialysis chair at [facility] on a MWF schedule - Dry weight [...] and management per PCP #CAD w/ prior OR with COSME to mLAD with prior stenting [...] Chronic pain: Discharge with 7 days of [place] due to missing pain clinic appointment while [...] living. Ms. Waldron has been living in [place] with her previous significant other; her son's moved her to [place] within the last 3-4 weeks due to [...] share some concern altered mentation, no acute regional climate change analyst past several days. Denies fever, chills, chest [...] since 05/02/25 Location Start Date End Date [place] ([facility]) 04/05/25 (defaulted) 05/06/25 (defaulted) Immunizations Immunization History [...] renal disease) (CMS/HCC) CHF (congestive heart failure) ([facility]) Pleural effusion Acute hypoxic respiratory failure Acute pulmonary edema ([facility]) Mar Waldron is a 55 y.o. female [...] - H/H q8h #CAD - Hx of OR with COSME to mLAD, distant - Home [...] Malnutrition - High Risk for Refeeding - Sales And Operations Trainee consult #Adult Failure To Thrive with Weight [...] Equipment Recommended: Defer to facility History Mar Waldron is 55 y.o. female admitted 06/01/2025 for work-up of No Principal Problem: There is no principal problem currently on the Problem List. Please update the Problem List and refresh.. Problem List Active Hospital Problems Diagnosis Date Noted CHF (congestive heart failure) ([facility]) 06/02/2025 Pleural effusion 06/02/2025 Acute hypoxic respiratory failure 06/02/2025 ESRD (end stage renal disease) ([facility]) 06/22/2024 Procedures Past Medical History Patient has a past medical history of Arthritis, CHF (congestive heart failure) ([facility]), Chronic renal failure, Coronary artery disease, Diabetes mellitus ([facility]), HTN (hypertension), Hypothyroidism, and Renal cancer ([facility]). Past Surgical History Patient has a past surgical history that includes Tonsillectomy; Appendectomy; Cholecystectomy; Hysterectomy; section, low transverse; and Coronary artery bypass graft (Bilateral). Precautions Medical Precautions: Fall precautions Subjective Patient agreeable to PT evaluation. Participants in Care Family/Caregiver Present: No Pharmaceutical Sales Specialist: Not Applicable Presentation Oxygen Therapy: Supplemental oxygen [...] go out except for doctor appointments) Mobility [place]: Assist with wheelchair propulsion History of Falls: [...] supine. Bed Mobility Exam: Rolling/Turning Level of [place]: Contact guard (bilaterally) Physical/Nonphysical Assist: Verbal Cues, Minimal cues Assistive Device: Bed rails Bed Mobility Exam: Scooting/Bridging Level of [place]: Dependent (scooting to HOB in supine) Physical/Nonphysical Assist: Verbal Cues, Minimal cues, Additional assist utilized for safety Assistive Device: Other (drawsheet) Bed Mobility Exam: Supine to Sit Level of [place]: Moderate assist (50% patient's effort) (pt achieved [...] [place]. Standardized Assessments Standardized Assessments Standardized Assessments: [facility] 6-Clicks Mobility Assessment [facility] 6-Clicks Mobility Assessment Difficulty patient has turning [...] climbing 3-5 steps with a railing?: Unable [facility] 6-Clicks Mobility Assessment Total : 9 Assessment [...] refresh.. Hospital Course 1. Acute pulmonary edema ([facility]) 2. End-stage renal disease needing dialysis ([facility]) Procedures (if applicable) Past Medical History Patient has a past medical history of Arthritis, CHF (congestive heart failure) ([facility]), Chronic renal failure, Coronary artery disease, Diabetes mellitus ([facility]), HTN (hypertension), Hypothyroidism, and Renal cancer ([facility]). Past Surgical History Patient has a past surgical history that includes Tonsillectomy; Appendectomy; Cholecystectomy; Hysterectomy; section, low transverse; and Coronary artery bypass graft (Bilateral). MOBILITY GUIDELINES There are no questions and answers to display. PRECAUTIONS Medical Precautions Yes Medical Precautions: Fall precautions SUBJECTIVE PARTICIPANTS IN CARE Patient/Caregiver Comments Pt agreeable to therapy Visitors Present No Pharmaceutical Sales Specialist (if applicable) PRESENTATION Oxygen Supplemental oxygen Nasal [...] go out except for doctor appointments) Mobility [place] Assist with wheelchair propulsion History of Falls [...] Sensation Muscle Tone BED MOBILITY Level of [place] Physical/Non-physical Assist Adaptive Equipment Utilized Rolling/ Turning [...] to Supine Comments FUNCTIONAL MOBILITY Level of [place] Distance Adaptive Equipment Utilized Ambulation Comments Unable to ambulate BALANCE Postural Appearance INTERVENTIONS Unable to assess this date. Level of [place] Balance Support Comments Static Sit Dynamic Sit [...] declined wash cloth for grooming. Level of [place] Adaptive Equipment Utilized Comments Feeding Grooming Bathing Upper Body Dressing Lower Body Dressing Shoe Level of Assistance: Dependent Toileting Dependent Bed level [facility] Health Management Community Re-Entry STANDARDIZED ASSESSMENTS [facility] 6-Click Daily Activities Help from Other: Don/Doff Regular Lower Body Clothings: Total Help From Other: Bathing: A lot Help From Other: Toileting: Total Help From Other: Don/Doff Upper Body Clothings: Total Help From Other: Grooming: Little Help From Other: Eating Meals: [facility] 6 Click - Daily Activities Score: 11 [...] her dialysis unit on Tuesday for scheduled BUNDLE HELPER however had issues with inability to access [...] Resource Strain: High Risk (06/17/2024) Received from [facility] ([place], [place]) Financial Resource Strain [...] No Physical Activity: Inactive (06/17/2024) Received from [facility] ([place] Physical Activity Number of minutes of exercise per week : 0 Stress: No Stress Concern Present (04/15/2024) Received from [facility] ([place] Stress Feeling stress past 2 weeks: 1 Social Connections: Unknown (06/25/2024) Social Connection and Isolation Panel Frequency of Communication with Friends and Family: Not on file Frequency of Social Gatherings with Friends and Family: Not on file Attends Jehovah'S Witness Services: Not on file Active Member of Clubs or Organizations: Not on file Attends Club or Organization Meetings: Not on file Marital Status: Living with partner Intimate Partner Violence: Not At Risk (07/02/2024) Received from [facility] Abuse Screen Feels Unsafe at Home [...] established yet, likely MWF - Dialysis Unit: [facility] - Outpatient Helicopter Pilot: Dr. Tiny Summers - Residual renal functions: [...] tablet 80 mg, 80 mg, Oral, Nightly, oRger Figueroa, DO doxazosin (Cardura) tablet 2 mg, [...] Rfl: 0 ergocalciferol (Vitamin D-2) 1.25 MG (76508 UT) capsule, Take 1 capsule (50,000 Units) [...] 1 month ago, he drove down to [place] to pick her up where she was [...] established with a primary care doctor in [place]. Reports that yesterday she had an accident [...] Resource Strain: High Risk (06/17/2024) Received from [facility] ([place], [place], [place], [place]) Financial Resource Strain How hard [...] No Physical Activity: Inactive (06/17/2024) Received from [facility] ([place], [employer], [place]) Physical Activity Number of minutes of exercise per week : 0 Stress: No Stress Concern Present (04/15/2024) Received from [facility] ([place]) Stress Feeling stress past 2 weeks: 1 Social Connections: Unknown (06/25/2024) Social Connection and Isolation Panel Frequency of Communication with Friends and Family: Not on file Frequency of Social Gatherings with Friends and Family: Not on file Attends Jehovah'S Witness Services: Not on file Active Member of Clubs or Organizations: Not on file Attends Club or Organization Meetings: Not on file Marital Status: Living with partner Intimate Partner Violence: Not At Risk (07/02/2024) Received from [facility] Abuse Screen Feels Unsafe at Home [...] baseline. Comments: Minimally interactive in questioning, poor program medical director Psychiatric: Mood and Affect: Mood normal. Behavior: [...] Value Units Date/Time Blood Culture (Aerobic/Anaerobet Set) [[id number]] Collected: 06/01/251851 Order Status: Completed Specimen: Blood from Wrist, Right Updated: 06/01/252108 Culture Culture in lab Narrative: Low blood volume submitted, results may be compromised Blood Culture (Aerobic/Anaerobet Set) [[id number]] Collected: 06/01/251851 Order Status: Completed Specimen: Blood from Hand, Right Updated: 06/01/252100 Culture Culture in lab Narrative: Low blood volume submitted, results may be compromised SARS-CoV-2, Flu A, Flu B, and RSV - Rapid [[id number]] (Normal) Collected: 06/01/251852 Order Status: Completed Specimen: [...] & Plan ESRD (end stage renal disease) ([facility]) CHF (congestive heart failure) ([facility]) Pleural effusion Acute hypoxic respiratory failure -Vitals: [...] who are primary caregivers, recently moved from [place] PT/OT: consulted, appreciate recommendations Consultants: Nephrology DISPO/Discharge Criteria: [ ] HD [ ] Improvement [ ] In O2 requirement echo Medically Ready for Discharge:Anticipated Tomorrow Edvin Du DO, MS, MS Family Medicine, PGY-3 [facility] [1] Past Medical History: Diagnosis Date Arthritis [...] time. History provided by: Patient and relative graduate teaching assistant used: Liz Manuel is a 55 year [...] and Affect: Mood normal. Behavior: Behavior normal. Rhodelia Coma Scale Score: 15 ED Course & [...] Culture (Aerobic/Anaerobet Set) STAT In process JAY MATTHEWS T 06/01/25 1636 EKG now - STAT [...] they just recently moved the patient from [place] up here with them and the dialysis [...] Description 08/20/2025 12:00 PM EST Office Visit [facility] [address], [address] [place] [address] Kaiden Harvey MD [address] [place] [address] 11/06/2025 9:15 AM EST Office Visit [facility] [address], [address] [place] [address] Joanna Bartlett MD [address] [place] [address] Scheduled Orders Name Type Priority Associated Diagnoses Orde r Schedule ECG Adult ECG Routine Chronic obstructive pulmonary disease with acute exacerbation (CMS/HCC) Ordered: 06/10/2025 Pulmonary function testing PFT Routine Chronic obstructive pulmonary disease with acute exacerbation (CMS/HCC) 1 Occurrences starting 06/10/2025 until 12/12/2026 Scheduled Referrals Name Type Priority Associated Diagnoses Orde r Schedule Discharge Ambulatory referral to [facility] Outpatient Referral Routine Acute pulmonary edema [...] artery disease involving coronary bypass graft of [place] heart without angina pectoris Chronic congestive heart [...] PM EDT ESRD (end stage renal disease) ([facility]) Unspecified complication of cardiac and vascular prosthetic [...] CBC and Differential (06/10/2025 4:24 AM EDT) [facility] WBC Count 7.28 3.70 - 10.30 10*3/uL LAB HEMATOLOGY METHOD 06/10/2025 4:48 AM EDT [facility] RBC Count 3.10(L) 3.90 - 5.20 10*6/uL LAB HEMATOLOGY METHOD 06/10/2025 4:48 AM EDT [facility] HGB 8.1(L) 11.2 - 15.7 g/dL LAB HEMATOLOGY METHOD 06/10/2025 4:48 AM EDT [facility] HCT 29.1(L) 34.0 - 45.0 % LAB HEMATOLOGY METHOD 06/10/2025 4:48 AM EDT [facility] Platelet Count 64(L) 155 - 369 10*3/uL LAB HEMATOLOGY METHOD 06/10/2025 4:48 AM EDT [facility] MCV 94 79 - 98 fL LAB HEMATOLOGY METHOD 06/10/2025 4:48 AM EDT [facility] MCH 26.1 26.0 - 32.0 pg LAB HEMATOLOGY METHOD 06/10/2025 4:48 AM EDT [facility] MCHC 27.8(L) 30.7 - 35.5 g/dL LAB HEMATOLOGY METHOD 06/10/2025 4:48 AM EDT [facility] RDW 16.0(H) 11.5 - 14.5 % LAB HEMATOLOGY METHOD 06/10/2025 4:48 AM EDT [facility] MPV 12.1 8.8 - 12.5 fL LAB HEMATOLOGY METHOD 06/10/2025 4:48 AM EDT [facility] nRBC 0.0 <=0.0 per 100 WBCs LAB HEMATOLOGY METHOD 06/10/2025 4:48 AM EDT [facility] Differential Type Automated LAB HEMATOLOGY METHOD 06/10/2025 4:48 AM EDT [facility] Neutrophils % 79 % LAB HEMATOLOGY METHOD 06/10/2025 4:48 AM EDT [facility] Lymphocytes % 9 % LAB HEMATOLOGY METHOD 06/10/2025 4:48 AM EDT [facility] Monocytes % 7 % LAB HEMATOLOGY METHOD 06/10/2025 4:48 AM EDT [facility] Eosinophils % 3 % LAB HEMATOLOGY METHOD 06/10/2025 4:48 AM EDT [facility] Basophils % 1 % LAB HEMATOLOGY METHOD 06/10/2025 4:48 AM EDT [facility] Immature Granulocytes % 1 % LAB HEMATOLOGY METHOD 06/10/2025 4:48 AM EDT [facility] Neutrophils Absolute 5.88 1.60 - 6.10 10*3/uL LAB HEMATOLOGY METHOD 06/10/2025 4:48 AM EDT [facility] Lymphocytes Absolute 0.65(L) 1.20 - 3.90 10*3/uL LAB HEMATOLOGY METHOD 06/10/2025 4:48 AM EDT [facility] Monocytes Absolute 0.47 0.30 - 0.90 10*3/uL LAB HEMATOLOGY METHOD 06/10/2025 4:48 AM EDT [facility] [facility] Eosinophils Absolute 0.20 0.00 - 0.50 10*3/uL LAB HEMATOLOGY METHOD 06/10/2025 4:48 AM EDT [facility] Basophils Absolute 0.04 0.00 - 0.10 10*3/uL LAB HEMATOLOGY METHOD 06/10/2025 4:48 AM EDT [facility] Immature Granulocytes Absolute 0.04 0.00 - 0.06 10*3/uL LAB HEMATOLOGY METHOD 06/10/2025 4:48 AM EDT [facility] Blood Venous blood specimen / Unknown Venipuncture / Unknown 06/10/2025 4:24 AM EDT 06/10/2025 4:42 AM EDT [facility] - 06/10/2025 4:48 AM EDT Therapeutic decision making should be based on absolute values, rather than percentages. us Faiza Garvin MD LAB BLOOD ORDERABLES Final Re sult [facility] [address] [place] [address] * (ABNORMAL) Comprehensive Metabolic Panel, Plasma (06/10/2025 4:24 AM EDT) Glucose, Plasma 165(H) 74 - 99 mg/dL 06/10/2025 5:09 AM EDT [facility] BUN, Plasma 57(H) 7 - 21 mg/dL 06/10/2025 5:09 AM EDT [facility] Creatinine, Plasma 3.74(H) 0.60 - 1.10 mg/dL 06/10/2025 5:09 AM EDT [facility] BUN/Creatinine Ratio 15 06/10/2025 5:09 AM EDT [facility] Sodium, Plasma 136 136 - 145 mmol/L 06/10/2025 5:09 AM EDT [facility] Potassium, Plasma 4.1 3.6 - 4.9 mmol/L 06/10/2025 5:09 AM EDT [facility] Chloride, Plasma 99 97 - 107 mmol/L 06/10/2025 5:09 AM EDT [facility] CO2, Plasma 23 22 - 29 mmol/L 06/10/2025 5:09 AM EDT [facility] Anion Gap 14 6 - 16 mmol/L 06/10/2025 5:09 AM EDT [facility] Total Calcium, Plasma 8.2(L) 8.9 - 10.2 mg/dL 06/10/2025 5:09 AM EDT [facility] Total Protein 5.8(L) 6.3 - 7.9 g/dL 06/10/2025 5:09 AM EDT [facility] Albumin, Plasma 2.7(L) 3.5 - 5.2 g/dL 06/10/2025 5:09 AM EDT [facility] AST, Plasma 9(L) 10 - 35 U/L 06/10/2025 5:09 AM EDT [facility] ALT, Plasma <5(L) 10 - 35 U/L 06/10/2025 5:09 AM EDT [facility] Alkaline Phosphatase, Plasma 166(H) 46 - 142 U/L 06/10/2025 5:09 AM EDT [facility] Total Bilirubin, Plasma 0.4 0.2 - 1.1 mg/dL 06/10/2025 5:09 AM EDT [facility] eGFRcr 13.6 mL/min/1.7 3m*2 06/10/2025 5:09 AM EDT [facility] Comment:Reported eGFRcr in m L/min/1.73m2 is based the CKD-EPI 2020 equation that does not use a race coefficient. Blood Venous blood specimen / Unknown Venipuncture / Unknown 06/10/2025 4:24 AM EDT 06/10/2025 4:40 AM EDT us Faiza Garvin MD LAB BLOOD ORDERABLES Final Re sult Performing Organization Address City/[facility] Co de Phone Number [facility] [address] [place] [address] * Magnesium, Plasma (06/10/2025 4:24 AM EDT) Magnesium, Plasma 2.1 1.9 - 2.4 mg/dL 06/10/2025 5:09 AM EDT [facility] Blood Venous blood specimen / Unknown Venipuncture / Unknown 06/10/2025 4:24 AM EDT 06/10/2025 4:40 AM EDT us Faiza Garvin MD LAB BLOOD ORDERABLES Final Re sult Performing Organization Address City/[facility] Co de Phone Number [facility] [address] [place] [address] * (ABNORMAL) Phosphorus, Plasma (06/10/2025 4:24 AM EDT) Phosphorus, Plasma 4.6(H) 2.5 - 4.5 mg/dL 06/10/2025 5:09 AM EDT [facility] Blood Venous blood specimen / Unknown Venipuncture / Unknown 06/10/2025 4:24 AM EDT 06/10/2025 4:40 AM EDT us Faiza Garvin MD LAB BLOOD ORDERABLES Final Re sult [facility] [address] [place] [address] * (ABNORMAL) CBC and Differential (06/09/2025 4:35 AM EDT) WBC Count 7.05 3.70 - 10.30 10*3/uL LAB HEMATOLOGY METHOD 06/09/2025 5:46 AM EDT [facility] RBC Count 2.80(L) 3.90 - 5.20 10*6/uL LAB HEMATOLOGY METHOD 06/09/2025 5:46 AM EDT [facility] HGB 7.6(L) 11.2 - 15.7 g/dL LAB HEMATOLOGY METHOD 06/09/2025 5:46 AM EDT [facility] HCT 26.9(L) 34.0 - 45.0 % LAB HEMATOLOGY METHOD 06/09/2025 5:46 AM EDT [facility] Platelet Count 60(L) 155 - 369 10*3/uL LAB HEMATOLOGY METHOD 06/09/2025 5:46 AM EDT [facility] MCV 96 79 - 98 fL LAB HEMATOLOGY METHOD 06/09/2025 5:46 AM EDT [facility] MCH 27.1 26.0 - 32.0 pg LAB HEMATOLOGY METHOD 06/09/2025 5:46 AM EDT [facility] MCHC 28.3(L) 30.7 - 35.5 g/dL LAB HEMATOLOGY METHOD 06/09/2025 5:46 AM EDT [facility] RDW 15.9(H) 11.5 - 14.5 % LAB HEMATOLOGY METHOD 06/09/2025 5:46 AM EDT [facility] MPV LAB HEMATOLOGY METHOD 06/09/2025 5:46 AM EDT [facility] Comment:Not Measured nRBC 0.0 <=0.0 per 100 WBCs LAB HEMATOLOGY METHOD 06/09/2025 5:46 AM EDT [facility] Differential Type Automated LAB HEMATOLOGY METHOD 06/09/2025 5:46 AM EDT [facility] Neutrophils % 79 % LAB HEMATOLOGY METHOD 06/09/2025 5:46 AM EDT [facility] Lymphocytes % 9 % LAB HEMATOLOGY METHOD 06/09/2025 5:46 AM EDT [facility] Monocytes % 7 % LAB HEMATOLOGY METHOD 06/09/2025 5:46 AM EDT [facility] Eosinophils % 3 % LAB HEMATOLOGY METHOD 06/09/2025 5:46 AM EDT [facility] Basophils % 1 % LAB HEMATOLOGY METHOD 06/09/2025 5:46 AM EDT [facility] Immature Granulocytes % 1 % LAB HEMATOLOGY METHOD 06/09/2025 5:46 AM EDT [facility] Neutrophils Absolute 5.60 1.60 - 6.10 10*3/uL LAB HEMATOLOGY METHOD 06/09/2025 5:46 AM EDT [facility] Lymphocytes Absolute 0.62(L) 1.20 - 3.90 10*3/uL LAB HEMATOLOGY METHOD 06/09/2025 5:46 AM EDT [facility] Monocytes Absolute 0.50 0.30 - 0.90 10*3/uL LAB HEMATOLOGY METHOD 06/09/2025 5:46 AM EDT [facility] Eosinophils Absolute 0.21 0.00 - 0.50 10*3/uL LAB HEMATOLOGY METHOD 06/09/2025 5:46 AM EDT [facility] Basophils Absolute 0.04 0.00 - 0.10 10*3/uL LAB HEMATOLOGY METHOD 06/09/2025 5:46 AM EDT [facility] Immature Granulocytes Absolute 0.08(H) 0.00 - 0.06 10*3/uL LAB HEMATOLOGY METHOD 06/09/2025 5:46 AM EDT [facility] Blood Venous blood specimen / Unknown Venipuncture / Unknown 06/09/2025 4:35 AM EDT 06/09/2025 5:34 AM EDT [facility] - 06/09/2025 5:46 AM EDT Therapeutic decision making should be based on absolute values, rather than percentages. us Faiza Garvin MD LAB BLOOD ORDERABLES Final Re sult [facility] [address] [place] [address] * (ABNORMAL) Comprehensive Metabolic Panel, Plasma (06/09/2025 4:35 AM EDT) Glucose, Plasma 100(H) 74 - 99 mg/dL 06/09/2025 6:01 AM EDT [facility] BUN, Plasma 47(H) 7 - 21 mg/dL 06/09/2025 6:01 AM EDT [facility] Creatinine, Plasma 3.30(H) 0.60 - 1.10 mg/dL 06/09/2025 6:01 AM EDT [facility] BUN/Creatinine Ratio 14 06/09/2025 6:01 AM EDT [facility] Sodium, Plasma 136 136 - 145 mmol/L 06/09/2025 6:01 AM EDT [facility] Potassium, Plasma 3.8 3.6 - 4.9 mmol/L 06/09/2025 6:01 AM EDT [facility] Chloride, Plasma 97 97 - 107 mmol/L 06/09/2025 6:01 AM EDT [facility] CO2, Plasma 24 22 - 29 mmol/L 06/09/2025 6:01 AM EDT [facility] Anion Gap 15 6 - 16 mmol/L 06/09/2025 6:01 AM EDT [facility] Total Calcium, Plasma 8.4(L) 8.9 - 10.2 mg/dL 06/09/2025 6:01 AM EDT [facility] Total Protein 5.9(L) 6.3 - 7.9 g/dL 06/09/2025 6:01 AM EDT [facility] Albumin, Plasma 3.0(L) 3.5 - 5.2 g/dL 06/09/2025 6:01 AM EDT [facility] AST, Plasma 14 10 - 35 U/L 06/09/2025 6:01 AM EDT [facility] Comment:Hemolyzed, result ma y be falsely increased. ALT, Plasma 5(L) 10 - 35 U/L 06/09/2025 6:01 AM EDT [facility] Alkaline Phosphatase, Plasma 171(H) 46 - 142 U/L 06/09/2025 6:01 AM EDT [facility] Total Bilirubin, Plasma 0.4 0.2 - 1.1 mg/dL 06/09/2025 6:01 AM EDT [facility] eGFRcr 15.8 mL/min/1.7 3m*2 06/09/2025 6:01 AM EDT [facility] Comment:Reported eGFRcr in m L/min/1.73m2 is based the CKD-EPI 2020 equation that does not use a race coefficient. Blood Venous blood specimen / Unknown Venipuncture / Unknown 06/09/2025 4:35 AM EDT 06/09/2025 5:32 AM EDT Result Alex Garvin MD LAB BLOOD ORDERABLES Final Re sult Performing Organization Address City/[facility]/ZIP Co de Phone Number [facility] [address] [place] [address] * Magnesium, Plasma (06/09/2025 4:35 AM EDT) Magnesium, Plasma 2.1 1.9 - 2.4 mg/dL 06/09/2025 6:01 AM EDT [facility] Blood Venous blood specimen / Unknown Venipuncture / Unknown 06/09/2025 4:35 AM EDT 06/09/2025 5:32 AM EDT Result Alex Garvin MD LAB BLOOD ORDERABLES Final Re sult [facility] [address] [place] [address] * Phosphorus, Plasma (06/09/2025 4:35 AM EDT) Phosphorus, Plasma 4.2 2.5 - 4.5 mg/dL 06/09/2025 6:01 AM EDT [facility] Blood Venous blood specimen / Unknown Venipuncture / Unknown 06/09/2025 4:35 AM EDT 06/09/2025 5:32 AM EDT Result Alex Garvin MD LAB BLOOD ORDERABLES Final Re sult [facility] [address] [place] [address] * (ABNORMAL) CBC and Differential (06/08/2025 4:05 AM EDT) WBC Count 6.33 3.70 - 10.30 10*3/uL LAB HEMATOLOGY METHOD 06/08/2025 4:34 AM EDT [facility] RBC Count 2.78(L) 3.90 - 5.20 10*6/uL LAB HEMATOLOGY METHOD 06/08/2025 4:34 AM EDT [facility] HGB 7.3(L) 11.2 - 15.7 g/dL LAB HEMATOLOGY METHOD 06/08/2025 4:34 AM EDT [facility] HCT 26.0(L) 34.0 - 45.0 % LAB HEMATOLOGY METHOD 06/08/2025 4:34 AM EDT [facility] Platelet Count 51(L) 155 - 369 10*3/uL LAB HEMATOLOGY METHOD 06/08/2025 4:34 AM EDT [facility] MCV 94 79 - 98 fL LAB HEMATOLOGY METHOD 06/08/2025 4:34 AM EDT [facility] MCH 26.3 26.0 - 32.0 pg LAB HEMATOLOGY METHOD 06/08/2025 4:34 AM EDT [facility] MCHC 28.1(L) 30.7 - 35.5 g/dL LAB HEMATOLOGY METHOD 06/08/2025 4:34 AM EDT [facility] RDW 15.9(H) 11.5 - 14.5 % LAB HEMATOLOGY METHOD 06/08/2025 4:34 AM EDT [facility] MPV LAB HEMATOLOGY METHOD 06/08/2025 4:34 AM EDT [facility] Comment:Not Measured nRBC 0.0 <=0.0 per 100 WBCs LAB HEMATOLOGY METHOD 06/08/2025 4:34 AM EDT [facility] Differential Type Automated LAB HEMATOLOGY METHOD 06/08/2025 4:34 AM EDT [facility] Neutrophils % 82 % LAB HEMATOLOGY METHOD 06/08/2025 4:34 AM EDT [facility] Lymphocytes % 7 % LAB HEMATOLOGY METHOD 06/08/2025 4:34 AM EDT [facility] Monocytes % 7 % LAB HEMATOLOGY METHOD 06/08/2025 4:34 AM EDT [facility] Eosinophils % 3 % LAB HEMATOLOGY METHOD 06/08/2025 4:34 AM EDT [facility] Basophils % 0 % LAB HEMATOLOGY METHOD 06/08/2025 4:34 AM EDT [facility] Immature Granulocytes % 1 % LAB HEMATOLOGY METHOD 06/08/2025 4:34 AM EDT [facility] Neutrophils Absolute 5.17 1.60 - 6.10 10*3/uL LAB HEMATOLOGY METHOD 06/08/2025 4:34 AM EDT [facility] Lymphocytes Absolute 0.46(L) 1.20 - 3.90 10*3/uL LAB HEMATOLOGY METHOD 06/08/2025 4:34 AM EDT [facility] Monocytes Absolute 0.46 0.30 - 0.90 10*3/uL LAB HEMATOLOGY METHOD 06/08/2025 4:34 AM EDT [facility] Eosinophils Absolute 0.16 0.00 - 0.50 10*3/uL LAB HEMATOLOGY METHOD 06/08/2025 4:34 AM EDT [facility] Basophils Absolute 0.02 0.00 - 0.10 10*3/uL LAB HEMATOLOGY METHOD 06/08/2025 4:34 AM EDT [facility] Immature Granulocytes Absolute 0.06 0.00 - 0.06 10*3/uL LAB HEMATOLOGY METHOD 06/08/2025 4:34 AM EDT [facility] Blood Venous blood specimen / Unknown Venipuncture / Unknown 06/08/2025 4:05 AM EDT 06/08/2025 4:22 AM EDT Narrative [facility] - 06/08/2025 4:34 AM EDT Therapeutic decision making should be based on absolute values, rather than percentages. us Faiza Garvin MD LAB BLOOD ORDERABLES Final Re sult [facility] [address] [place] [address] * (ABNORMAL) Comprehensive Metabolic Panel, Plasma (06/08/2025 4:05 AM EDT) [facility] Glucose, Plasma 95 74 - 99 mg/dL 06/08/2025 4:54 AM EDT [facility] BUN, Plasma 40(H) 7 - 21 mg/dL 06/08/2025 4:54 AM EDT [facility] Creatinine, Plasma 2.83(H) 0.60 - 1.10 mg/dL 06/08/2025 4:54 AM EDT [facility] BUN/Creatinine Ratio 14 06/08/2025 4:54 AM EDT [facility] Sodium, Plasma 135(L) 136 - 145 mmol/L 06/08/2025 4:54 AM EDT [facility] Potassium, Plasma 4.7 3.6 - 4.9 mmol/L 06/08/2025 4:54 AM EDT [facility] Comment:Hemolyzed, result ma y be falsely increased. Chloride, Plasma 100 97 - 107 mmol/L 06/08/2025 4:54 AM EDT [facility] CO2, Plasma 25 22 - 29 mmol/L 06/08/2025 4:54 AM EDT [facility] Anion Gap 10 6 - 16 mmol/L 06/08/2025 4:54 AM EDT [facility] Total Calcium, Plasma 8.2(L) 8.9 - 10.2 mg/dL 06/08/2025 4:54 AM EDT [facility] Total Protein 6.0(L) 6.3 - 7.9 g/dL 06/08/2025 4:54 AM EDT [facility] Albumin, Plasma 2.8(L) 3.5 - 5.2 g/dL 06/08/2025 4:54 AM EDT [facility] AST, Plasma 28 10 - 35 U/L 06/08/2025 4:54 AM EDT [facility] Comment:Hemolyzed, result ma y be falsely increased. ALT, Plasma 6(L) 10 - 35 U/L 06/08/2025 4:54 AM EDT [facility] Alkaline Phosphatase, Plasma 162(H) 46 - 142 U/L 06/08/2025 4:54 AM EDT [facility] Total Bilirubin, Plasma 0.5 0.2 - 1.1 mg/dL 06/08/2025 4:54 AM EDT [facility] eGFRcr 19.0 mL/min/1.7 3m*2 06/08/2025 4:54 AM EDT [facility] Comment:Reported eGFRcr in m L/min/1.73m2 is based the CKD-EPI 2020 equation that does not use a race coefficient. Blood Venous blood specimen / Unknown Venipuncture / Unknown 06/08/2025 4:05 AM EDT 06/08/2025 4:11 AM EDT Result Alex Garvin MD LAB BLOOD ORDERABLES Final Re sult Performing Organization Address City/[facility]/ZIP Co de Phone Number [facility] [address] [place] [address] * Magnesium, Plasma (06/08/2025 4:05 AM EDT) Magnesium, Plasma 2.0 1.9 - 2.4 mg/dL 06/08/2025 4:54 AM EDT [facility] Blood Venous blood specimen / Unknown Venipuncture / Unknown 06/08/2025 4:05 AM EDT 06/08/2025 4:11 AM EDT Result Alex Garvin MD LAB BLOOD ORDERABLES Final Re sult Performing Organization Address [facility] Co de Phone Number [facility] [address] [place] [address] * Phosphorus, Plasma (06/08/2025 4:05 AM EDT) Phosphorus, Plasma 4.0 2.5 - 4.5 mg/dL 06/08/2025 4:54 AM EDT [facility] Blood Venous blood specimen / Unknown Venipuncture / Unknown 06/08/2025 4:05 AM EDT 06/08/2025 4:11 AM EDT Result Alex Garvin MD LAB BLOOD ORDERABLES Final Re sult Performing Organization Address City/[facility]/ZIP Co de Phone Number [facility] [address] [place] [address], [place] [address] * (ABNORMAL) CBC and Differential (06/07/2025 5:07 AM EDT) WBC Count 6.72 3.70 - 10.30 10*3/uL LAB HEMATOLOGY METHOD 06/07/2025 5:43 AM EDT [facility] RBC Count 2.99(L) 3.90 - 5.20 10*6/uL LAB HEMATOLOGY METHOD 06/07/2025 5:43 AM EDT [facility] HGB 7.8(L) 11.2 - 15.7 g/dL LAB HEMATOLOGY METHOD 06/07/2025 5:43 AM EDT [facility] HCT 28.4(L) 34.0 - 45.0 % LAB HEMATOLOGY METHOD 06/07/2025 5:43 AM EDT [facility] Platelet Count 43(L) 155 - 369 10*3/uL LAB HEMATOLOGY METHOD 06/07/2025 5:43 AM EDT [facility] MCV 95 79 - 98 fL LAB HEMATOLOGY METHOD 06/07/2025 5:43 AM EDT [facility] MCH 26.1 26.0 - 32.0 pg LAB HEMATOLOGY METHOD 06/07/2025 5:43 AM EDT [facility] MCHC 27.5(L) 30.7 - 35.5 g/dL LAB HEMATOLOGY METHOD 06/07/2025 5:43 AM EDT [facility] RDW 15.9(H) 11.5 - 14.5 % LAB HEMATOLOGY METHOD 06/07/2025 5:43 AM EDT [facility] MPV LAB HEMATOLOGY METHOD 06/07/2025 5:43 AM EDT [facility] Comment:Not Measured nRBC 0.0 <=0.0 per 100 WBCs LAB HEMATOLOGY METHOD 06/07/2025 5:43 AM EDT [facility] Differential Type Automated LAB HEMATOLOGY METHOD 06/07/2025 5:43 AM EDT [facility] Neutrophils % 79 % LAB HEMATOLOGY METHOD 06/07/2025 5:43 AM EDT [facility] Lymphocytes % 9 % LAB HEMATOLOGY METHOD 06/07/2025 5:43 AM EDT [facility] Monocytes % 8 % LAB HEMATOLOGY METHOD 06/07/2025 5:43 AM EDT [facility] Eosinophils % 3 % LAB HEMATOLOGY METHOD 06/07/2025 5:43 AM EDT [facility] Basophils % 0 % LAB HEMATOLOGY METHOD 06/07/2025 5:43 AM EDT [facility] Immature Granulocytes % 1 % LAB HEMATOLOGY METHOD 06/07/2025 5:43 AM EDT [facility] Neutrophils Absolute 5.35 1.60 - 6.10 10*3/uL LAB HEMATOLOGY METHOD 06/07/2025 5:43 AM EDT [facility] Lymphocytes Absolute 0.57(L) 1.20 - 3.90 10*3/uL LAB HEMATOLOGY METHOD 06/07/2025 5:43 AM EDT [facility] Monocytes Absolute 0.55 0.30 - 0.90 10*3/uL LAB HEMATOLOGY METHOD 06/07/2025 5:43 AM EDT [facility] Eosinophils Absolute 0.17 0.00 - 0.50 10*3/uL LAB HEMATOLOGY METHOD 06/07/2025 5:43 AM EDT [facility] Basophils Absolute 0.03 0.00 - 0.10 10*3/uL LAB HEMATOLOGY METHOD 06/07/2025 5:43 AM EDT [facility] Immature Granulocytes Absolute 0.05 0.00 - 0.06 10*3/uL LAB HEMATOLOGY METHOD 06/07/2025 5:43 AM EDT [facility] Blood Venous blood specimen / Unknown Venipuncture / Unknown 06/07/2025 5:07 AM EDT 06/07/2025 5:27 AM EDT Narrative [facility] - 06/07/2025 5:43 AM EDT Therapeutic decision making should be based on absolute values, rather than percentages. us Faiza Garvin MD LAB BLOOD ORDERABLES Final Re sult [facility] [address] [place] [address] * (ABNORMAL) Comprehensive Metabolic Panel, Plasma (06/07/2025 5:07 AM EDT) Glucose, Plasma 90 74 - 99 mg/dL 06/07/2025 5:46 AM EDT [facility] BUN, Plasma 64(H) 7 - 21 mg/dL 06/07/2025 5:46 AM EDT [facility] Creatinine, Plasma 4.03(H) 0.60 - 1.10 mg/dL 06/07/2025 5:46 AM EDT [facility] BUN/Creatinine Ratio 16 06/07/2025 5:46 AM EDT [facility] Sodium, Plasma 139 136 - 145 mmol/L 06/07/2025 5:46 AM EDT [facility] Potassium, Plasma 4.4 3.6 - 4.9 mmol/L 06/07/2025 5:46 AM EDT [facility] Chloride, Plasma 99 97 - 107 mmol/L 06/07/2025 5:46 AM EDT [facility] CO2, Plasma 24 22 - 29 mmol/L 06/07/2025 5:46 AM EDT [facility] Anion Gap 16 6 - 16 mmol/L 06/07/2025 5:46 AM EDT [facility] Total Calcium, Plasma 8.4(L) 8.9 - 10.2 mg/dL 06/07/2025 5:46 AM EDT [facility] Total Protein 6.0(L) 6.3 - 7.9 g/dL 06/07/2025 5:46 AM EDT [facility] Albumin, Plasma 3.1(L) 3.5 - 5.2 g/dL 06/07/2025 5:46 AM EDT [facility] AST, Plasma 12 10 - 35 U/L 06/07/2025 5:46 AM EDT [facility] ALT, Plasma <5(L) 10 - 35 U/L 06/07/2025 5:46 AM EDT [facility] Alkaline Phosphatase, Plasma 173(H) 46 - 142 U/L 06/07/2025 5:46 AM EDT [facility] Total Bilirubin, Plasma 0.4 0.2 - 1.1 mg/dL 06/07/2025 5:46 AM EDT [facility] eGFRcr 12.4 mL/min/1.7 3m*2 06/07/2025 5:46 AM EDT [facility] Comment:Reported eGFRcr in m L/min/1.73m2 is based the CKD-EPI 2020 equation that does not use a race coefficient. Blood Venous blood specimen / Unknown Venipuncture / Unknown 06/07/2025 5:07 AM EDT 06/07/2025 5:18 AM EDT us Faiza Garvin MD LAB BLOOD ORDERABLES Final Re sult Performing Organization Address City/[facility]/ZIP Co de Phone Number [facility] [address] [place] [address] * Magnesium, Plasma (06/07/2025 5:07 AM EDT) Magnesium, Plasma 2.2 1.9 - 2.4 mg/dL 06/07/2025 5:46 AM EDT [facility] Blood Venous blood specimen / Unknown Venipuncture / Unknown 06/07/2025 5:07 AM EDT 06/07/2025 5:18 AM EDT us Faiza Garvin MD LAB BLOOD ORDERABLES Final Re sult Performing Organization Address [facility] [place] [place] [address] * (ABNORMAL) Phosphorus, Plasma (06/07/2025 5:07 AM EDT) Phosphorus, Plasma 5.1(H) 2.5 - 4.5 mg/dL 06/07/2025 5:46 AM EDT [facility] Blood Venous blood specimen / Unknown Venipuncture / Unknown 06/07/2025 5:07 AM EDT 06/07/2025 5:18 AM EDT us Faiza Garvin MD LAB BLOOD ORDERABLES Final Re sult Performing Organization Address City/[facility] Co de Phone Number [facility] [address] [place] [address] * (ABNORMAL) CBC and Differential (06/06/2025 2:49 AM EDT) WBC Count 6.74 3.70 - 10.30 10*3/uL LAB HEMATOLOGY METHOD 06/06/2025 3:30 AM EDT [facility] RBC Count 2.72(L) 3.90 - 5.20 10*6/uL LAB HEMATOLOGY METHOD 06/06/2025 3:30 AM EDT [facility] HGB 7.4(L) 11.2 - 15.7 g/dL LAB HEMATOLOGY METHOD 06/06/2025 3:30 AM EDT [facility] HCT 26.2(L) 34.0 - 45.0 % LAB HEMATOLOGY METHOD 06/06/2025 3:30 AM EDT [facility] Platelet Count 45(L) 155 - 369 10*3/uL LAB HEMATOLOGY METHOD 06/06/2025 3:30 AM EDT [facility] MCV 96 79 - 98 fL LAB HEMATOLOGY METHOD 06/06/2025 3:30 AM EDT [facility] MCH 27.2 26.0 - 32.0 pg LAB HEMATOLOGY METHOD 06/06/2025 3:30 AM EDT [facility] MCHC 28.2(L) 30.7 - 35.5 g/dL LAB HEMATOLOGY METHOD 06/06/2025 3:30 AM EDT [facility] RDW 15.8(H) 11.5 - 14.5 % LAB HEMATOLOGY METHOD 06/06/2025 3:30 AM EDT [facility] MPV LAB HEMATOLOGY METHOD 06/06/2025 3:30 AM EDT [facility] Comment:Not Measured nRBC 0.0 <=0.0 per 100 WBCs LAB HEMATOLOGY METHOD 06/06/2025 3:30 AM EDT [facility] Differential Type Automated LAB HEMATOLOGY METHOD 06/06/2025 3:30 AM EDT [facility] Neutrophils % 79 % LAB HEMATOLOGY METHOD 06/06/2025 3:30 AM EDT [facility] Lymphocytes % 9 % LAB HEMATOLOGY METHOD 06/06/2025 3:30 AM EDT [facility] Monocytes % 9 % LAB HEMATOLOGY METHOD 06/06/2025 3:30 AM EDT [facility] Eosinophils % 2 % LAB HEMATOLOGY METHOD 06/06/2025 3:30 AM EDT [facility] Basophils % 0 % LAB HEMATOLOGY METHOD 06/06/2025 3:30 AM EDT [facility] Immature Granulocytes % 1 % LAB HEMATOLOGY METHOD 06/06/2025 3:30 AM EDT [facility] Neutrophils Absolute 5.31 1.60 - 6.10 10*3/uL LAB HEMATOLOGY METHOD 06/06/2025 3:30 AM EDT [facility] Lymphocytes Absolute 0.63(L) 1.20 - 3.90 10*3/uL LAB HEMATOLOGY METHOD 06/06/2025 3:30 AM EDT [facility] Monocytes Absolute 0.57 0.30 - 0.90 10*3/uL LAB HEMATOLOGY METHOD 06/06/2025 3:30 AM EDT [facility] [facility] Eosinophils Absolute 0.15 0.00 - 0.50 10*3/uL LAB HEMATOLOGY METHOD 06/06/2025 3:30 AM EDT [facility] Basophils Absolute 0.02 0.00 - 0.10 10*3/uL LAB HEMATOLOGY METHOD 06/06/2025 3:30 AM EDT [facility] Immature Granulocytes Absolute 0.06 0.00 - 0.06 10*3/uL LAB HEMATOLOGY METHOD 06/06/2025 3:30 AM EDT [facility] Blood Venous blood specimen / Unknown Venipuncture / Unknown 06/06/2025 2:49 AM EDT 06/06/2025 3:08 AM EDT Narrative [facility] - 06/06/2025 3:30 AM EDT Therapeutic decision making should be based on absolute values, rather than percentages. us Faiza Garvin MD LAB BLOOD ORDERABLES Final Re sult [facility] [address] [place] [address] * (ABNORMAL) Comprehensive Metabolic Panel, Plasma (06/06/2025 2:49 AM EDT) Glucose, Plasma 134(H) 74 - 99 mg/dL 06/06/2025 3:35 AM EDT [facility] BUN, Plasma 58(H) 7 - 21 mg/dL 06/06/2025 3:35 AM EDT [facility] Creatinine, Plasma 3.74(H) 0.60 - 1.10 mg/dL 06/06/2025 3:35 AM EDT [facility] BUN/Creatinine Ratio 16 06/06/2025 3:35 AM EDT [facility] Sodium, Plasma 137 136 - 145 mmol/L 06/06/2025 3:35 AM EDT [facility] Potassium, Plasma 4.0 3.6 - 4.9 mmol/L 06/06/2025 3:35 AM EDT [facility] Chloride, Plasma 97 97 - 107 mmol/L 06/06/2025 3:35 AM EDT [facility] CO2, Plasma 24 22 - 29 mmol/L 06/06/2025 3:35 AM EDT [facility] Anion Gap 16 6 - 16 mmol/L 06/06/2025 3:35 AM EDT [facility] Total Calcium, Plasma 8.3(L) 8.9 - 10.2 mg/dL 06/06/2025 3:35 AM EDT [facility] Total Protein 5.8(L) 6.3 - 7.9 g/dL 06/06/2025 3:35 AM EDT [facility] Albumin, Plasma 2.9(L) 3.5 - 5.2 g/dL 06/06/2025 3:35 AM EDT [facility] AST, Plasma 13 10 - 35 U/L 06/06/2025 3:35 AM EDT [facility] ALT, Plasma <5(L) 10 - 35 U/L 06/06/2025 3:35 AM EDT [facility] Alkaline Phosphatase, Plasma 171(H) 46 - 142 U/L 06/06/2025 3:35 AM EDT [facility] Total Bilirubin, Plasma 0.3 0.2 - 1.1 mg/dL 06/06/2025 3:35 AM EDT [facility] eGFRcr 13.6 mL/min/1.7 3m*2 06/06/2025 3:35 AM EDT [facility] Comment:Reported eGFRcr in m L/min/1.73m2 is based the CKD-EPI 2020 equation that does not use a race coefficient. Blood Venous blood specimen / Unknown Venipuncture / Unknown 06/06/2025 2:49 AM EDT 06/06/2025 3:08 AM EDT us Faiza Garvin MD LAB BLOOD ORDERABLES Final Re sult [facility] [address] [place] [address] * Magnesium, Plasma (06/06/2025 2:49 AM EDT) Pathologist [facility] [place] Magnesium, Plasma 2.2 1.9 - 2.4 mg/dL 06/06/2025 3:35 AM EDT [facility] Blood Venous blood specimen / Unknown Venipuncture / Unknown 06/06/2025 2:49 AM EDT 06/06/2025 3:08 AM EDT us Faiza Garvin MD LAB BLOOD ORDERABLES Final Re sult Performing Organization Address [facility]/ZIP Co de Phone Number [facility] [address] [place] [address] * (ABNORMAL) Phosphorus, Plasma (06/06/2025 2:49 AM EDT) [facility] Phosphorus, Plasma 4.7(H) 2.5 - 4.5 mg/dL 06/06/2025 3:35 AM EDT [facility] Blood Venous blood specimen / Unknown Venipuncture / Unknown 06/06/2025 2:49 AM EDT 06/06/2025 3:08 AM EDT us Faiza Garvin MD LAB BLOOD ORDERABLES Final Re sult Performing Organization Address City/[facility]/[place] [address] * (ABNORMAL) POCT glucose meter (06/05/2025 11:54 AM EDT) Pathologist [facility] [place] POCT Glucose 127(H) 74 - 99 mg/dL 06/05/2025 11:56 AM EDT [facility] Comment:Accuracy of a glucos e result [...] Comment 06/05/2025 11:56 AM EDT [facility] Veterinary Virus Serum Inspector ID Milagros Lopez 06/05/2025 11:56 AM EDT [facility] Device ID [id number] 06/05/2025 11:56 AM EDT [facility] Specimen Type POC Capillary 06/05/2025 11:56 AM EDT [facility] Blood Capillary blood specimen / Unknown 06/05/2025 11:54 AM EDT 06/05/2025 11:56 AM EDT Mayra Rogers MD LAB POINT OF CARE TE ST DOCKED DEVICE UNSOLICITED RESULTS Final Result Performing Organization Address City/State/[facility] de Phone Number [facility] [address] [place] [address] * (ABNORMAL) POCT glucose meter (06/05/2025 10:42 AM EDT) [facility] Signature POCT Glucose 102(H) 74 - [...] Comment 06/05/2025 10:44 AM EDT [facility] Veterinary Virus Serum Inspector ID Milagros Lopez 06/05/2025 10:44 AM EDT [facility] Device ID [id number] 06/05/2025 10:44 AM EDT [facility] Specimen Type POC Capillary 06/05/2025 10:44 AM EDT [facility] Blood Capillary blood specimen / Unknown 06/05/2025 10:42 AM EDT 06/05/2025 10:44 AM EDT us Mayra Rogers MD LAB POINT OF CARE TE ST DOCKED DEVICE UNSOLICITED RESULTS Final Result Performing Organization Address City/[facility]/ZIP Co de Phone Number [facility] [address] [place] [address] * POCT glucose meter (06/05/2025 9:42 AM EDT) [facility] POCT Glucose 89 74 - 99 [...] for testing. Comment 06/05/2025 9:44 AM EDT [facility] Veterinary Virus Serum Inspector ID Milagros Lopez 06/05/2025 9:44 AM EDT [facility] Device ID [id number] 06/05/2025 9:44 AM EDT [facility] Specimen Type POC Capillary 06/05/2025 9:44 AM EDT [facility] Blood Capillary blood specimen / Unknown 06/05/2025 9:42 AM EDT 06/05/2025 9:44 AM EDT Mayra Rogers MD LAB POINT OF CARE TE ST DOCKED DEVICE UNSOLICITED RESULTS Final Result Performing Organization Address [facility] Co de Phone Number [facility] [address] [place] [address] * POCT glucose meter (06/05/2025 9:06 AM EDT) [facility] POCT Glucose 87 74 - 99 [...] 06/05/2025 9:08 AM EDT [facility] Veterinary Virus Serum Inspector ID Milagros Lopez 06/05/2025 9:08 AM EDT [facility] Device ID [id number] 06/05/2025 9:08 AM EDT [facility] Specimen Type POC Capillary 06/05/2025 9:08 AM EDT [facility] Blood Capillary blood specimen / Unknown 06/05/2025 9:06 AM EDT 06/05/2025 9:08 AM EDT Mayra Rogers MD LAB POINT OF CARE TE ST DOCKED DEVICE UNSOLICITED RESULTS Final Result Performing Organization Address City/[facility] Co de Phone Number [facility] [address] [place] [address] * (ABNORMAL) POCT glucose meter (06/05/2025 4:57 AM EDT) [facility] POCT Glucose 105(H) 74 - 99 [...] 06/05/2025 4:59 AM EDT [facility] Veterinary Virus Serum Inspector ID Florence Phelan 06/05/2025 4:59 AM EDT [facility] Device ID [id number] 06/05/2025 4:59 AM EDT [facility] Specimen Type POC Capillary 06/05/2025 4:59 AM EDT [facility] Blood Capillary blood specimen / Unknown 06/05/2025 4:57 AM EDT 06/05/2025 4:59 AM EDT Mayra Rogers MD LAB POINT OF CARE TE ST DOCKED DEVICE UNSOLICITED RESULTS Final Result Performing Organization Address City/[facility] Co de Phone Number [facility] [address] [place] [address] * (ABNORMAL) POCT glucose meter (06/05/2025 3:59 AM EDT) Pathologist [facility] [place] POCT Glucose 61(L) 74 - 99 mg/dL [...] Comment 06/05/2025 4:01 AM EDT [facility] Veterinary Virus Serum Inspector ID Florence Phelan 06/05/2025 4:01 AM EDT [facility] Device ID [id number] 06/05/2025 4:01 AM EDT [facility] Specimen Type POC Capillary 06/05/2025 4:01 AM EDT [facility] Blood Capillary blood specimen / Unknown 06/05/2025 3:59 AM EDT 06/05/2025 4:01 AM EDT Mayra Rogers MD LAB POINT OF CARE TE ST DOCKED DEVICE UNSOLICITED RESULTS Final Result [facility] [address] [place] [address] * (ABNORMAL) CBC and Differential (06/05/2025 2:21 AM EDT) Pathologist [facility] [place] WBC Count 8.76 3.70 - 10.30 10*3/uL LAB HEMATOLOGY METHOD 06/05/2025 2:52 AM EDT [facility] RBC Count 3.00(L) 3.90 - 5.20 10*6/uL LAB HEMATOLOGY METHOD 06/05/2025 2:52 AM EDT [facility] HGB 8.0(L) 11.2 - 15.7 g/dL LAB HEMATOLOGY METHOD 06/05/2025 2:52 AM EDT [facility] HCT 28.8(L) 34.0 - 45.0 % LAB HEMATOLOGY METHOD 06/05/2025 2:52 AM EDT [facility] Platelet Count 42(L) 155 - 369 10*3/uL LAB HEMATOLOGY METHOD 06/05/2025 2:52 AM EDT [facility] MCV 96 79 - 98 fL LAB HEMATOLOGY METHOD 06/05/2025 2:52 AM EDT [facility] MCH 26.7 26.0 - 32.0 pg LAB HEMATOLOGY METHOD 06/05/2025 2:52 AM EDT [facility] MCHC 27.8(L) 30.7 - 35.5 g/dL LAB HEMATOLOGY METHOD 06/05/2025 2:52 AM EDT [facility] RDW 15.8(H) 11.5 - 14.5 % LAB HEMATOLOGY METHOD 06/05/2025 2:52 AM EDT [facility] MPV LAB HEMATOLOGY METHOD 06/05/2025 2:52 AM EDT [facility] Comment:Not Measured nRBC 0.3(H) <=0.0 per 100 WBCs LAB HEMATOLOGY METHOD 06/05/2025 2:52 AM EDT [facility] Differential Type Automated LAB HEMATOLOGY METHOD 06/05/2025 2:52 AM EDT [facility] Neutrophils % 86 % LAB HEMATOLOGY METHOD 06/05/2025 2:52 AM EDT [facility] Lymphocytes % 6 % LAB HEMATOLOGY METHOD 06/05/2025 2:52 AM EDT [facility] Monocytes % 5 % LAB HEMATOLOGY METHOD 06/05/2025 2:52 AM EDT [facility] Eosinophils % 1 % LAB HEMATOLOGY METHOD 06/05/2025 2:52 AM EDT [facility] Basophils % 0 % LAB HEMATOLOGY METHOD 06/05/2025 2:52 AM EDT [facility] Immature Granulocytes % 2 % LAB HEMATOLOGY METHOD 06/05/2025 2:52 AM EDT [facility] Neutrophils Absolute 7.57(H) 1.60 - 6.10 10*3/uL LAB HEMATOLOGY METHOD 06/05/2025 2:52 AM EDT [facility] Lymphocytes Absolute 0.50(L) 1.20 - 3.90 10*3/uL LAB HEMATOLOGY METHOD 06/05/2025 2:52 AM EDT [facility] Monocytes Absolute 0.45 0.30 - 0.90 10*3/uL LAB HEMATOLOGY METHOD 06/05/2025 2:52 AM EDT [facility] Eosinophils Absolute 0.07 0.00 - 0.50 10*3/uL LAB HEMATOLOGY METHOD 06/05/2025 2:52 AM EDT [facility] Basophils Absolute 0.03 0.00 - 0.10 10*3/uL LAB HEMATOLOGY METHOD 06/05/2025 2:52 AM EDT [facility] Immature Granulocytes Absolute 0.14(H) 0.00 - 0.06 10*3/uL LAB HEMATOLOGY METHOD 06/05/2025 2:52 AM EDT [facility] Blood Venous blood specimen / Unknown Venipuncture / Unknown 06/05/2025 2:21 AM EDT 06/05/2025 2:36 AM EDT Narrative [facility] - 06/05/2025 2:52 AM EDT Therapeutic decision making should be based on absolute values, rather than percentages. us Faiza Garvin MD LAB BLOOD ORDERABLES Final Re sult [facility] [address] [place] [address] * (ABNORMAL) Comprehensive Metabolic Panel, Plasma (06/05/2025 2:21 AM EDT) Glucose, Plasma 66(L) 74 - 99 mg/dL 06/05/2025 3:04 AM EDT [facility] BUN, Plasma 47(H) 7 - 21 mg/dL 06/05/2025 3:04 AM EDT [facility] Creatinine, Plasma 3.34(H) 0.60 - 1.10 mg/dL 06/05/2025 3:04 AM EDT [facility] BUN/Creatinine Ratio 14 06/05/2025 3:04 AM EDT [facility] Sodium, Plasma 139 136 - 145 mmol/L 06/05/2025 3:04 AM EDT [facility] Potassium, Plasma 3.9 3.6 - 4.9 mmol/L 06/05/2025 3:04 AM EDT [facility] Chloride, Plasma 98 97 - 107 mmol/L 06/05/2025 3:04 AM EDT [facility] CO2, Plasma 23 22 - 29 mmol/L 06/05/2025 3:04 AM EDT [facility] Anion Gap 18(H) 6 - 16 mmol/L 06/05/2025 3:04 AM EDT [facility] Total Calcium, Plasma 8.0(L) 8.9 - 10.2 mg/dL 06/05/2025 3:04 AM EDT [facility] Total Protein 6.1(L) 6.3 - 7.9 g/dL 06/05/2025 3:04 AM EDT [facility] Albumin, Plasma 3.2(L) 3.5 - 5.2 g/dL 06/05/2025 3:04 AM EDT [facility] AST, Plasma 13 10 - 35 U/L 06/05/2025 3:04 AM EDT [facility] ALT, Plasma <5(L) 10 - 35 U/L 06/05/2025 3:04 AM EDT [facility] Alkaline Phosphatase, Plasma 191(H) 46 - 142 U/L 06/05/2025 3:04 AM EDT [facility] Total Bilirubin, Plasma 0.4 0.2 - 1.1 mg/dL 06/05/2025 3:04 AM EDT [facility] eGFRcr 15.6 mL/min/1.7 3m*2 06/05/2025 3:04 AM EDT [facility] Comment:Reported eGFRcr in m L/min/1.73m2 is based the CKD-EPI 2020 equation that does not use a race coefficient. Blood Venous blood specimen / Unknown Venipuncture / Unknown 06/05/2025 2:21 AM EDT 06/05/2025 2:35 AM EDT us Faiza Garvin MD LAB BLOOD ORDERABLES Final Re sult [facility] [address] [place] [address] * Magnesium, Plasma (06/05/2025 2:21 AM EDT) Magnesium, Plasma 2.1 1.9 - 2.4 mg/dL 06/05/2025 3:04 AM EDT [facility] Blood Venous blood specimen / Unknown Venipuncture / Unknown 06/05/2025 2:21 AM EDT 06/05/2025 2:35 AM EDT Faiza Garvin MD LAB BLOOD ORDERABLES Final Re sult Performing Organization Address [facility] Co de Phone Number [facility] [address] [place] [address] * Phosphorus, Plasma (06/05/2025 2:21 AM EDT) Phosphorus, Plasma 4.2 2.5 - 4.5 mg/dL 06/05/2025 3:04 AM EDT [facility] Blood Venous blood specimen / Unknown Venipuncture / Unknown 06/05/2025 2:21 AM EDT 06/05/2025 2:35 AM EDT us Faiza Garvin MD LAB BLOOD ORDERABLES Final Re sult Performing Organization Address [facility] Co md Phone Number [facility] [address] [place] [address] * Acute Hepatitis Panel (06/05/2025 2:21 AM EDT) [facility] Hepatitis B Surf Antigen Negative Negative 06/05/2025 4:43 AM EDT [facility] Hepatitis C Antibody Negative Negative 06/05/2025 4:43 AM EDT [facility] Hepatitis A Antibody IgM Negative Negative 06/05/2025 4:43 AM EDT [facility] Hepatitis B Core Antibody IgM Negative Negative 06/05/2025 4:43 AM EDT [facility] Blood Venous blood specimen / Unknown Venipuncture / Unknown 06/05/2025 2:21 AM EDT 06/05/2025 2:35 AM EDT us Mayra Rogers MD LAB BLOOD ORDERABLES Final Resul t Performing Organization Address [facility] Co de Phone Number [facility] [address] [place] [address] * Hepatitis B Surface Antibody, Quantitative (06/05/2025 2:21 AM EDT) Hepatitis B Surface Antibody, Quantitative <8.00 NonReactiv e: <8, Grayzone: 8 - <12, Reactive: >= 12 mIU/mL 06/05/2025 5:18 AM EDT [facility] Comment: Nonreactive. Individual is considered not immune to HBV infection. Blood Venous blood specimen / Unknown Venipuncture / Unknown 06/05/2025 2:21 AM EDT 06/05/2025 2:35 AM EDT us Mayra Rogers MD LAB BLOOD ORDERABLES Final Resul t [facility] [address] [place] [address] * IR Angiogram ArterioVenous Shunt (06/04/2025 2:31 [...] EDT CLINICAL INDICATION: Low flow AVF TECHNIQUE: Vending Machine Host/Hostess: Dr. Ferris Secondary Veterinary Virus Serum Inspector: None Rad Dose: 3 mGy = Procedure: [...] over a guide wire for a 4 Andorran micropuncture sheath. The micropuncture sheath was exchanged for a 6 And[place]ran vascular sheath. Via the sheath, A stiff [...] a 7 mm x 4 cm conquest VP DIRECTOR OF FINANCE balloon with acceptable technical result. Digital subtraction [...] 06/04/2025 CLINICAL INDICATION: Low flow AVF TECHNIQUE: Vending Machine Host/Hostess: Dr. Ferris Secondary Veterinary Virus Serum Inspector: None Rad Dose: 3 mGy = Procedure: [...] exchangedover a guide wire for a 4 [place]ran micropuncture sheath. The micropuncturesheath was exchanged for a 6 And[place]ran vascular sheath. Via the sheath, [place] glide [...] a 7 mm x 4 cm conquest VP DIRECTOR OF FINANCE balloon with acceptable technical result.Digital subtraction angiography [...] LAB HEMATOLOGY METHOD 06/04/2025 3:34 AM EDT [facility] RBC Count 2.97(L) 3.90 - 5.20 10*6/uL LAB HEMATOLOGY METHOD 06/04/2025 3:34 AM EDT [facility] HGB 7.9(L) 11.2 - 15.7 g/dL LAB HEMATOLOGY METHOD 06/04/2025 3:34 AM EDT [facility] HCT 28.4(L) 34.0 - 45.0 % LAB HEMATOLOGY METHOD 06/04/2025 3:34 AM EDT [facility] Platelet Count 42(L) 155 - 369 10*3/uL LAB HEMATOLOGY METHOD 06/04/2025 3:34 AM EDT [facility] MCV 96 79 - 98 fL LAB HEMATOLOGY METHOD 06/04/2025 3:34 AM EDT [facility] MCH 26.6 26.0 - 32.0 pg LAB HEMATOLOGY METHOD 06/04/2025 3:34 AM EDT [facility] MCHC 27.8(L) 30.7 - 35.5 g/dL LAB HEMATOLOGY METHOD 06/04/2025 3:34 AM EDT [facility] RDW 15.8(H) 11.5 - 14.5 % LAB HEMATOLOGY METHOD 06/04/2025 3:34 AM EDT [facility] MPV 13.5(H) 8.8 - 12.5 fL LAB HEMATOLOGY METHOD 06/04/2025 3:34 AM EDT [facility] nRBC 0.4(H) <=0.0 per 100 WBCs LAB HEMATOLOGY METHOD 06/04/2025 3:34 AM EDT [facility] Differential Type Automated LAB HEMATOLOGY METHOD 06/04/2025 3:34 AM EDT [facility] Neutrophils % 83 % LAB HEMATOLOGY METHOD 06/04/2025 3:34 AM EDT [facility] Lymphocytes % 8 % LAB HEMATOLOGY METHOD 06/04/2025 3:34 AM EDT [facility] Monocytes % 6 % LAB HEMATOLOGY METHOD 06/04/2025 3:34 AM EDT [facility] Eosinophils % 2 % LAB HEMATOLOGY METHOD 06/04/2025 3:34 AM EDT [facility] Basophils % 0 % LAB HEMATOLOGY METHOD 06/04/2025 3:34 AM EDT [facility] Immature Granulocytes % 1 % LAB HEMATOLOGY METHOD 06/04/2025 3:34 AM EDT [facility] Neutrophils Absolute 6.55(H) 1.60 - 6.10 10*3/uL LAB HEMATOLOGY METHOD 06/04/2025 3:34 AM EDT [facility] Lymphocytes Absolute 0.61(L) 1.20 - 3.90 10*3/uL LAB HEMATOLOGY METHOD 06/04/2025 3:34 AM EDT [facility] Monocytes Absolute 0.48 0.30 - 0.90 10*3/uL LAB HEMATOLOGY METHOD 06/04/2025 3:34 AM EDT [facility] Eosinophils Absolute 0.16 0.00 - 0.50 10*3/uL LAB HEMATOLOGY METHOD 06/04/2025 3:34 AM EDT [facility] Basophils Absolute 0.03 0.00 - 0.10 10*3/uL LAB HEMATOLOGY METHOD 06/04/2025 3:34 AM EDT [facility] Immature Granulocytes Absolute 0.07(H) 0.00 - 0.06 10*3/uL LAB HEMATOLOGY METHOD 06/04/2025 3:34 AM EDT [facility] Blood Venous blood specimen / Unknown Venipuncture / Unknown 06/04/2025 2:56 AM EDT 06/04/2025 3:24 AM EDT Narrative [facility] - 06/04/2025 3:34 AM EDT Therapeutic decision making should be based on absolute values, rather than percentages. us Faiza Garvin MD LAB BLOOD ORDERABLES Final Re sult [facility] [address] [place] [address] * (ABNORMAL) Comprehensive Metabolic Panel, Plasma (06/04/2025 2:56 AM EDT) Glucose, Plasma 79 74 - 99 mg/dL 06/04/2025 3:50 AM EDT [facility] BUN, Plasma 75(H) 7 - 21 mg/dL 06/04/2025 3:50 AM EDT [facility] Creatinine, Plasma 4.69(H) 0.60 - 1.10 mg/dL 06/04/2025 3:50 AM EDT [facility] BUN/Creatinine Ratio 16 06/04/2025 3:50 AM EDT [facility] Sodium, Plasma 137 136 - 145 mmol/L 06/04/2025 3:50 AM EDT [facility] Potassium, Plasma 3.6 3.6 - 4.9 mmol/L 06/04/2025 3:50 AM EDT [facility] Chloride, Plasma 96(L) 97 - 107 mmol/L 06/04/2025 3:50 AM EDT [facility] CO2, Plasma 23 22 - 29 mmol/L 06/04/2025 3:50 AM EDT [facility] Anion Gap 18(H) 6 - 16 mmol/L 06/04/2025 3:50 AM EDT [facility] Total Calcium, Plasma 8.1(L) 8.9 - 10.2 mg/dL 06/04/2025 3:50 AM EDT [facility] Total Protein 6.0(L) 6.3 - 7.9 g/dL 06/04/2025 3:50 AM EDT [facility] Albumin, Plasma 3.1(L) 3.5 - 5.2 g/dL 06/04/2025 3:50 AM EDT [facility] AST, Plasma 12 10 - 35 U/L 06/04/2025 3:50 AM EDT [facility] ALT, Plasma <5(L) 10 - 35 U/L 06/04/2025 3:50 AM EDT [facility] Alkaline Phosphatase, Plasma 189(H) 46 - 142 U/L 06/04/2025 3:50 AM EDT [facility] Total Bilirubin, Plasma 0.3 0.2 - 1.1 mg/dL 06/04/2025 3:50 AM EDT [facility] eGFRcr 10.4 mL/min/1.7 3m*2 06/04/2025 3:50 AM EDT [facility] Comment:Reported eGFRcr in m L/min/1.73m2 is based the CKD-EPI 2020 equation that does not use a race coefficient. Blood Venous blood specimen / Unknown Venipuncture / Unknown 06/04/2025 2:56 AM EDT 06/04/2025 3:24 AM EDT us Faiza Garvin MD LAB BLOOD ORDERABLES Final Re sult [facility] [address] [place] [address] * Magnesium, Plasma (06/04/2025 2:56 AM EDT) Magnesium, Plasma 2.3 1.9 - 2.4 mg/dL 06/04/2025 3:50 AM EDT [facility] Blood Venous blood specimen / Unknown Venipuncture / Unknown 06/04/2025 2:56 AM EDT 06/04/2025 3:24 AM EDT us Faiza Garvin MD LAB BLOOD ORDERABLES Final Re sult Performing Organization Address [facility] Co de Phone Number [facility] [address] [place] [address] * (ABNORMAL) Phosphorus, Plasma (06/04/2025 2:56 AM EDT) Phosphorus, Plasma 5.7(H) 2.5 - 4.5 mg/dL 06/04/2025 3:50 AM EDT [facility] Blood Venous blood specimen / Unknown Venipuncture / Unknown 06/04/2025 2:56 AM EDT 06/04/2025 3:24 AM EDT us Faiza aGrvin MD LAB BLOOD ORDERABLES Final Re sult Performing Organization Address [facility] de Phone Number [facility] [address] [place] [address] * (ABNORMAL) Hemoglobin and Hematocrit, Blood (06/03/2025 12:43 PM EDT) HGB 7.9(L) 11.2 - 15.7 g/dL LAB HEMATOLOGY METHOD 06/03/2025 2:01 PM EDT [facility] HCT 28.6(L) 34.0 - 45.0 % LAB HEMATOLOGY METHOD 06/03/2025 2:01 PM EDT [facility] Blood Venous blood specimen / Unknown Venipuncture / Unknown 06/03/2025 12:43 PM EDT 06/03/2025 2:01 PM EDT us Mayra Rogers MD LAB BLOOD ORDERABLES Final Resul t Performing Organization Address [facility] Co de Phone Number [facility] [address] [place] [address] * (ABNORMAL) CBC and Differential (06/03/2025 4:51 AM EDT) WBC Count 7.45 3.70 - 10.30 10*3/uL LAB HEMATOLOGY METHOD 06/03/2025 5:55 AM EDT [facility] RBC Count 2.97(L) 3.90 - 5.20 10*6/uL LAB HEMATOLOGY METHOD 06/03/2025 5:55 AM EDT [facility] HGB 8.1(L) 11.2 - 15.7 g/dL LAB HEMATOLOGY METHOD 06/03/2025 5:55 AM EDT [facility] HCT 28.7(L) 34.0 - 45.0 % LAB HEMATOLOGY METHOD 06/03/2025 5:55 AM EDT [facility] Platelet Count 44(L) 155 - 369 10*3/uL LAB HEMATOLOGY METHOD 06/03/2025 5:55 AM EDT [facility] MCV 97 79 - 98 fL LAB HEMATOLOGY METHOD 06/03/2025 5:55 AM EDT [facility] MCH 27.3 26.0 - 32.0 pg LAB HEMATOLOGY METHOD 06/03/2025 5:55 AM EDT [facility] MCHC 28.2(L) 30.7 - 35.5 g/dL LAB HEMATOLOGY METHOD 06/03/2025 5:55 AM EDT [facility] RDW 15.8(H) 11.5 - 14.5 % LAB HEMATOLOGY METHOD 06/03/2025 5:55 AM EDT [facility] MPV LAB HEMATOLOGY METHOD 06/03/2025 5:55 AM EDT [facility] Comment:Not Measured nRBC 0.4(H) <=0.0 per 100 WBCs LAB HEMATOLOGY METHOD 06/03/2025 5:55 AM EDT [facility] Differential Type Automated LAB HEMATOLOGY METHOD 06/03/2025 5:55 AM EDT [facility] Neutrophils % 83 % LAB HEMATOLOGY METHOD 06/03/2025 5:55 AM EDT [facility] Lymphocytes % 8 % LAB HEMATOLOGY METHOD 06/03/2025 5:55 AM EDT [facility] Monocytes % 6 % LAB HEMATOLOGY METHOD 06/03/2025 5:55 AM EDT [facility] Eosinophils % 2 % LAB HEMATOLOGY METHOD 06/03/2025 5:55 AM EDT [facility] Basophils % 0 % LAB HEMATOLOGY METHOD 06/03/2025 5:55 AM EDT [facility] Immature Granulocytes % 1 % LAB HEMATOLOGY METHOD 06/03/2025 5:55 AM EDT [facility] Neutrophils Absolute 6.12(H) 1.60 - 6.10 10*3/uL LAB HEMATOLOGY METHOD 06/03/2025 5:55 AM EDT [facility] Lymphocytes Absolute 0.60(L) 1.20 - 3.90 10*3/uL LAB HEMATOLOGY METHOD 06/03/2025 5:55 AM EDT [facility] Monocytes Absolute 0.46 0.30 - 0.90 10*3/uL LAB HEMATOLOGY METHOD 06/03/2025 5:55 AM EDT [facility] Eosinophils Absolute 0.17 0.00 - 0.50 10*3/uL LAB HEMATOLOGY METHOD 06/03/2025 5:55 AM EDT [facility] Basophils Absolute 0.03 0.00 - 0.10 10*3/uL LAB HEMATOLOGY METHOD 06/03/2025 5:55 AM EDT [facility] Immature Granulocytes Absolute 0.07(H) 0.00 - 0.06 10*3/uL LAB HEMATOLOGY METHOD 06/03/2025 5:55 AM EDT [facility] Blood Venous blood specimen / Unknown Venipuncture / Unknown 06/03/2025 4:51 AM EDT 06/03/2025 5:15 AM EDT Narrative [facility] - 06/03/2025 5:55 AM EDT Therapeutic decision making should be based on absolute values, rather than percentages. us Faiza Garvin MD LAB BLOOD ORDERABLES Final Re sult [facility] [address] [place] [address] * (ABNORMAL) Comprehensive Metabolic Panel, Plasma (06/03/2025 4:51 AM EDT) Glucose, Plasma 105(H) 74 - 99 mg/dL 06/03/2025 5:50 AM EDT [facility] BUN, Plasma 66(H) 7 - 21 mg/dL 06/03/2025 5:50 AM EDT [facility] Creatinine, Plasma 4.30(H) 0.60 - 1.10 mg/dL 06/03/2025 5:50 AM EDT [facility] BUN/Creatinine Ratio 15 06/03/2025 5:50 AM EDT [facility] Sodium, Plasma 138 136 - 145 mmol/L 06/03/2025 5:50 AM EDT [facility] Potassium, Plasma 3.4(L) 3.6 - 4.9 mmol/L 06/03/2025 5:50 AM EDT [facility] Chloride, Plasma 96(L) 97 - 107 mmol/L 06/03/2025 5:50 AM EDT [facility] CO2, Plasma 23 22 - 29 mmol/L 06/03/2025 5:50 AM EDT [facility] Anion Gap 19(H) 6 - 16 mmol/L 06/03/2025 5:50 AM EDT [facility] Total Calcium, Plasma 8.1(L) 8.9 - 10.2 mg/dL 06/03/2025 5:50 AM EDT [facility] Total Protein 6.0(L) 6.3 - 7.9 g/dL 06/03/2025 5:50 AM EDT [facility] Albumin, Plasma 3.3(L) 3.5 - 5.2 g/dL 06/03/2025 5:50 AM EDT [facility] AST, Plasma 13 10 - 35 U/L 06/03/2025 5:50 AM EDT [facility] ALT, Plasma <5(L) 10 - 35 U/L 06/03/2025 5:50 AM EDT [facility] Alkaline Phosphatase, Plasma 213(H) 46 - 142 U/L 06/03/2025 5:50 AM EDT [facility] Total Bilirubin, Plasma 0.3 0.2 - 1.1 mg/dL 06/03/2025 5:50 AM EDT [facility] eGFRcr 11.5 mL/min/1.7 3m*2 06/03/2025 5:50 AM EDT [facility] Comment:Reported eGFRcr in m L/min/1.73m2 is based the CKD-EPI 2020 equation that does not use a race coefficient. Blood Venous blood specimen / Unknown Venipuncture / Unknown 06/03/2025 4:51 AM EDT 06/03/2025 5:23 AM EDT us Faiza Garvin MD LAB BLOOD ORDERABLES Final Re sult [facility] [address] [place] [address] * Magnesium, Plasma (06/03/2025 4:51 AM EDT) Magnesium, Plasma 2.3 1.9 - 2.4 mg/dL 06/03/2025 5:50 AM EDT [facility] Blood Venous blood specimen / Unknown Venipuncture / Unknown 06/03/2025 4:51 AM EDT 06/03/2025 5:23 AM EDT us Faiza Garvin MD LAB BLOOD ORDERABLES Final Re sult Performing Organization Address [facility]/ZIP Co de Phone Number [facility] [address] [place] [address] * (ABNORMAL) Phosphorus, Plasma (06/03/2025 4:51 AM EDT) Phosphorus, Plasma 5.3(H) 2.5 - 4.5 mg/dL 06/03/2025 5:50 AM EDT [facility] Blood Venous blood specimen / Unknown Venipuncture / Unknown 06/03/2025 4:51 AM EDT 06/03/2025 5:23 AM EDT us Faiza Garvin MD LAB BLOOD ORDERABLES Final Re sult [facility] [address] [place] [address] * (ABNORMAL) Hemoglobin and Hematocrit, Blood (06/02/2025 5:50 PM EDT) HGB 8.3(L) 11.2 - 15.7 g/dL LAB HEMATOLOGY METHOD 06/02/2025 6:03 PM EDT [facility] HCT 29.0(L) 34.0 - 45.0 % LAB HEMATOLOGY METHOD 06/02/2025 6:03 PM EDT [facility] Blood Venous blood specimen / Unknown Venipuncture / Unknown 06/02/2025 5:50 PM EDT 06/02/2025 5:57 PM EDT us Mayra Rogers MD LAB BLOOD ORDERABLES Final Resul t [facility] [address] [place] [address] * VAS US Hemodialysis Access Left (06/02/2025 [...] is no recent study available for direct [id number] comparison. Unable to complete study due to [...] is no recent study available for direct [id number] comparison. Faiza Garvin MD CV ECHO PROCEDURES Final Resu lt * (ABNORMAL) Free T4, Plasma (06/02/2025 4:07 AM EDT) Free T4, Plasma 0.6(L) 0.8 - 1.7 ng/dL 06/02/2025 6:15 PM EDT [facility] Blood Venous blood specimen / Unknown Venipuncture / Unknown 06/02/2025 4:07 AM EDT 06/02/2025 4:26 AM EDT Mayra Rogers MD LAB BLOOD ORDERABLES Final Resul t [facility] [address] [place] [address] * (ABNORMAL) TSH Reflex FT4 (06/02/2025 4:07 AM EDT) Pathologist [facility] [place] Thyroid Stimulating Hormone, Plasma 23.70(H) 0.40 - 4.20 uIU/mL 06/02/2025 5:37 PM EDT [facility] Blood Venous blood specimen / Unknown Venipuncture / Unknown 06/02/2025 4:07 AM EDT 06/02/2025 4:26 AM EDT us Mayra Rogers MD LAB BLOOD ORDERABLES Final Resul t [facility] [address] [place] [address] * (ABNORMAL) CBC and Differential (06/02/2025 4:07 AM EDT) Pathologist [facility] [place] WBC Count 6.73 3.70 - 10.30 10*3/uL LAB HEMATOLOGY METHOD 06/02/2025 6:07 AM EDT [facility] RBC Count 2.89(L) 3.90 - 5.20 10*6/uL LAB HEMATOLOGY METHOD 06/02/2025 6:07 AM EDT [facility] HGB 7.7(L) 11.2 - 15.7 g/dL LAB HEMATOLOGY METHOD 06/02/2025 6:07 AM EDT [facility] HCT 27.9(L) 34.0 - 45.0 % LAB HEMATOLOGY METHOD 06/02/2025 6:07 AM EDT [facility] Platelet Count LAB HEMATOLOGY METHOD 06/02/2025 6:07 AM EDT [facility] Comment:Interfering substanc e present, platelets appear decreased. Recollect recommended. MCV 97 79 - 98 fL LAB HEMATOLOGY METHOD 06/02/2025 6:07 AM EDT [facility] MCH 26.6 26.0 - 32.0 pg LAB HEMATOLOGY METHOD 06/02/2025 6:07 AM EDT [facility] MCHC 27.6(L) 30.7 - 35.5 g/dL LAB HEMATOLOGY METHOD 06/02/2025 6:07 AM EDT [facility] RDW 15.3(H) 11.5 - 14.5 % LAB HEMATOLOGY METHOD 06/02/2025 6:07 AM EDT [facility] MPV LAB HEMATOLOGY METHOD 06/02/2025 6:07 AM EDT [facility] Comment:Not Measured nRBC 0.3(H) <=0.0 per 100 WBCs LAB HEMATOLOGY METHOD 06/02/2025 6:07 AM EDT [facility] Differential Type Automated LAB HEMATOLOGY METHOD 06/02/2025 6:07 AM EDT [facility] Neutrophils % 84 % LAB HEMATOLOGY METHOD 06/02/2025 6:07 AM EDT [facility] Lymphocytes % 7 % LAB HEMATOLOGY METHOD 06/02/2025 6:07 AM EDT [facility] Monocytes % 6 % LAB HEMATOLOGY METHOD 06/02/2025 6:07 AM EDT [facility] Eosinophils % 2 % LAB HEMATOLOGY METHOD 06/02/2025 6:07 AM EDT [facility] Basophils % 1 % LAB HEMATOLOGY METHOD 06/02/2025 6:07 AM EDT [facility] Immature Granulocytes % 0 % LAB HEMATOLOGY METHOD 06/02/2025 6:07 AM EDT [facility] Neutrophils Absolute 5.62 1.60 - 6.10 10*3/uL LAB HEMATOLOGY METHOD 06/02/2025 6:07 AM EDT [facility] Lymphocytes Absolute 0.50(L) 1.20 - 3.90 10*3/uL LAB HEMATOLOGY METHOD 06/02/2025 6:07 AM EDT [facility] Monocytes Absolute 0.41 0.30 - 0.90 10*3/uL LAB HEMATOLOGY METHOD 06/02/2025 6:07 AM EDT [facility] Eosinophils Absolute 0.13 0.00 - 0.50 10*3/uL LAB HEMATOLOGY METHOD 06/02/2025 6:07 AM EDT [facility] Basophils Absolute 0.04 0.00 - 0.10 10*3/uL LAB HEMATOLOGY METHOD 06/02/2025 6:07 AM EDT [facility] Immature Granulocytes Absolute 0.03 0.00 - 0.06 10*3/uL LAB HEMATOLOGY METHOD 06/02/2025 6:07 AM EDT [facility] Blood Venous blood specimen / Unknown Venipuncture / Unknown 06/02/2025 4:07 AM EDT 06/02/2025 4:09 AM EDT Narrative [facility] - 06/02/2025 6:07 AM EDT Therapeutic decision making should be based on absolute values, rather than percentages. us Faiza Garvin MD LAB BLOOD ORDERABLES Final Re sult [facility] [address] [place] [address] * (ABNORMAL) Comprehensive Metabolic Panel, Plasma (06/02/2025 4:07 AM EDT) Glucose, Plasma 132(H) 74 - 99 mg/dL 06/02/2025 4:55 AM EDT [facility] BUN, Plasma 61(H) 7 - 21 mg/dL 06/02/2025 4:55 AM EDT [facility] Creatinine, Plasma 3.90(H) 0.60 - 1.10 mg/dL 06/02/2025 4:55 AM EDT [facility] BUN/Creatinine Ratio 16 06/02/2025 4:55 AM EDT [facility] Sodium, Plasma 136 136 - 145 mmol/L 06/02/2025 4:55 AM EDT [facility] Potassium, Plasma 3.6 3.6 - 4.9 mmol/L 06/02/2025 4:55 AM EDT [facility] Chloride, Plasma 96(L) 97 - 107 mmol/L 06/02/2025 4:55 AM EDT [facility] CO2, Plasma 22 22 - 29 mmol/L 06/02/2025 4:55 AM EDT [facility] Anion Gap 18(H) 6 - 16 mmol/L 06/02/2025 4:55 AM EDT [facility] Total Calcium, Plasma 8.1(L) 8.9 - 10.2 mg/dL 06/02/2025 4:55 AM EDT [facility] Total Protein 6.0(L) 6.3 - 7.9 g/dL 06/02/2025 4:55 AM EDT [facility] Albumin, Plasma 3.0(L) 3.5 - 5.2 g/dL 06/02/2025 4:55 AM EDT [facility] AST, Plasma 20 10 - 35 U/L 06/02/2025 4:55 AM EDT [facility] ALT, Plasma <5(L) 10 - 35 U/L 06/02/2025 4:55 AM EDT [facility] Alkaline Phosphatase, Plasma 194(H) 46 - 142 U/L 06/02/2025 4:55 AM EDT [facility] Total Bilirubin, Plasma 0.3 0.2 - 1.1 mg/dL 06/02/2025 4:55 AM EDT [facility] eGFRcr 12.9 mL/min/1.7 3m*2 06/02/2025 4:55 AM EDT [facility] Comment:Reported eGFRcr in m L/min/1.73m2 is based the CKD-EPI 2020 equation that does not use a race coefficient. Blood Venous blood specimen / Unknown Venipuncture / Unknown 06/02/2025 4:07 AM EDT 06/02/2025 4:26 AM EDT us Faiza Garvin MD LAB BLOOD ORDERABLES Final Re sult Performing Organization Address [facility]/ZIP Co de Phone Number [facility] [address] [place] [address] * Magnesium, Plasma (06/02/2025 4:07 AM EDT) Magnesium, Plasma 2.3 1.9 - 2.4 mg/dL 06/02/2025 4:55 AM EDT [facility] Blood Venous blood specimen / Unknown Venipuncture / Unknown 06/02/2025 4:07 AM EDT 06/02/2025 4:26 AM EDT us Faiza Garvin MD LAB BLOOD ORDERABLES Final Re sult Performing Organization Address City/[facility]/ZIP Co de Phone Number [facility] [address] [place] [address] * (ABNORMAL) Phosphorus, Plasma (06/02/2025 4:07 AM EDT) Phosphorus, Plasma 4.8(H) 2.5 - 4.5 mg/dL 06/02/2025 4:55 AM EDT [facility] Blood Venous blood specimen / Unknown Venipuncture / Unknown 06/02/2025 4:07 AM EDT 06/02/2025 4:26 AM EDT us Faiza Garvin MD LAB BLOOD ORDERABLES Final Re sult [facility] [address] [place] [address] * SARS-CoV-2, Flu A, Flu B, and RSV - Rapid (06/01/2025 6:53 PM EDT) [facility] SARS CoV-2/COVID-19 RNA PCR Result Not Detected Not Detected 06/01/2025 7:59 PM EDT [facility] Influenza A Virus PCR Result Not Detected Not Detected 06/01/2025 7:59 PM EDT [facility] Influenza B Virus PCR Result Not Detected Not Detected 06/01/2025 7:59 PM EDT [facility] Respiratory Syncytial Virus (RSV) PCR Result Not Detected Not Detected 06/01/2025 7:59 PM EDT [facility] Swab Nasopharyngeal structure / Unknown Non-blood Collection / Unknown 06/01/2025 6:53 PM EDT 06/01/2025 7:02 PM EDT Narrative [facility] - 06/01/2025 7:59 PM [...] OR DERABLES Final Result Performing Organization Address City/[facility]/ZIP Co de Phone Number [facility] [address] [place] [address] * Blood Culture (Aerobic/Anaerobet Set) (06/01/2025 6:52 PM EDT) Culture No growth at day 5 06/06/2025 8:01 PM EDT [facility] Blood Structure of right hand / Unknown Venipuncture / Unknown 06/01/2025 6:52 PM EDT 06/01/2025 7:03 PM EDT Narrative [facility] - 06/06/2025 8:01 PM EDT Low blood volume submitted, results may be compromised us Faiza Garvin MD LAB MICROBIOLOGY - GENERAL OR DERABLES Final Result Performing Organization Address [facility] Co de Phone Number [facility] [address] [place] [address] * Blood Culture (Aerobic/Anaerobet Set) (06/01/2025 6:52 PM EDT) Culture No growth at day 5 06/06/2025 8:01 PM EDT [facility] Blood Structure of right wrist region / Unknown Venipuncture / Unknown 06/01/2025 6:52 PM EDT 06/01/2025 7:03 PM EDT Narrative [facility] - 06/06/2025 8:01 PM EDT Low blood volume submitted, results may be compromised us Faiza Garvin MD LAB MICROBIOLOGY - GENERAL OR DERABLES Final Result Performing Organization Address City/[facility]/ZIP Co de Phone Number [facility] [address] [place] [address] * XR Chest 1 View (06/01/2025 5:10 [...] STAT (adult) (06/01/2025 4:57 PM EDT) Pathologist [facility] [place] EKG DIAGNOSIS CLASS Abnormal MUSE ECG Ventricular Rate 48 BPM MUSE ECG Atrial Rate 48 BPM MUSE ECG IL Interval 154 ms MUSE ECG QRSD Interval 114 ms MUSE ECG QT Interval 478 ms MUSE ECG QTC Interval 427 ms MUSE ECG P [place] 54 degrees MUSE ECG R [place] 116 degrees MUSE ECG T Wave [place] -12 degrees MUSE ECG Diagnosis Sinus bradycardia with premature atrial complexes with aberrant conduction MUSE ECG Diagnosis Low voltage QRS MUSE ECG Diagnosis Possible , old Anterior infarct MUSE ECG Diagnosis Left posterior fascicular block MUSE ECG Diagnosis Nonspecific T wave abnormality MUSE ECG Diagnosis Abnormal ECG MUSE ECG Diagnosis MUSE ECG Diagnosis Confirmed by Michael Garner ([id number]) on 06/02/2025 10:26:53 AM MUSE ECG 06/01/2025 4:57 PM EDT 06/02/2025 10:26 AM EDT Klarissa Monterroso DO ECG ORDERABLES Final Result MUSE ECG * (ABNORMAL) BNP (06/01/2025 4:47 PM EDT) [facility] N-Terminal, PROBNP, Plasma >70,000(H) 0 - 899 pg/mL 06/01/2025 10:34 PM EDT [facility] Blood Venous blood specimen / Unknown Venipuncture / Unknown 06/01/2025 4:47 PM EDT 06/01/2025 4:53 PM EDT Faiza Gravin MD LAB BLOOD ORDERABLES Final Re sult [facility] [address] [place] [address] * (ABNORMAL) Blood gas panel, venous (06/01/2025 4:47 PM EDT) [facility] pH, Venous 7.34 7.32 - 7.43 LAB HEMATOLOGY METHOD 06/01/2025 4:54 PM EDT [facility] pCO2, Venous 51 37 - 52 mmHg LAB HEMATOLOGY METHOD 06/01/2025 4:54 PM EDT [facility] pO2, Venous 39 25 - 40 mmHg LAB HEMATOLOGY METHOD 06/01/2025 4:54 PM EDT [facility] SO2, Measured, Venous 66 65 - 80 % LAB HEMATOLOGY METHOD 06/01/2025 4:54 PM EDT [facility] Base Excess, Venous 1.5 -2.0 - 3.0 mmol/L LAB HEMATOLOGY METHOD 06/01/2025 4:54 PM EDT [facility] Bicarbonate, Calculated, Venous 28(H) 22 - 26 mmol/L LAB HEMATOLOGY METHOD 06/01/2025 4:54 PM EDT [facility] Hematocrit, Whole Blood 26.2(L) 34.0 - 45.0 % LAB HEMATOLOGY METHOD 06/01/2025 4:54 PM EDT [facility] Sodium, Whole Blood 138 136 - 145 mmol/L LAB HEMATOLOGY METHOD 06/01/2025 4:54 PM EDT [facility] Potassium, Whole Blood 3.3(L) 3.6 - 4.9 mmol/L LAB HEMATOLOGY METHOD 06/01/2025 4:54 PM EDT [facility] Chloride, Whole Blood 96(L) 97 - 107 mmol/L LAB HEMATOLOGY METHOD 06/01/2025 4:54 PM EDT [facility] Glucose, Whole Blood 158(H) 74 - 99 mg/dL LAB HEMATOLOGY METHOD 06/01/2025 4:54 PM EDT [facility] Lactate, Venous, Whole Blood 0.8 0.5 - 2.2 mmol/L LAB HEMATOLOGY METHOD 06/01/2025 4:54 PM EDT [facility] Ionized Calcium, Whole Blood 4.5(L) 4.6 - 5.1 mg/dL LAB HEMATOLOGY METHOD 06/01/2025 4:54 PM EDT [facility] Blood Venous blood specimen / Unknown Venipuncture / Unknown 06/01/2025 4:47 PM EDT 06/01/2025 4:53 PM EDT Klarissa Monterroso DO LAB BLOOD ORDERABLES Final Re sult Performing Organization Address City/[facility]/ZIP Co de Phone Number [facility] [address] [place] [address] * (ABNORMAL) Phosphorus (06/01/2025 4:47 PM EDT) Pathologist [facility] [place] Phosphorus, Plasma 4.7(H) 2.5 - 4.5 mg/dL 06/01/2025 5:16 PM EDT [facility] Blood Venous blood specimen / Unknown Venipuncture / Unknown 06/01/2025 4:47 PM EDT 06/01/2025 4:53 PM EDT Gust DO LAB BLOOD ORDERABLES Final Re sult Performing Organization Address [facility]/ZIP Co de Phone Number [facility] [address] [place] [address] * Magnesium (06/01/2025 4:47 PM EDT) [facility] Magnesium, Plasma 2.4 1.9 - 2.4 mg/dL 06/01/2025 5:16 PM EDT [facility] Blood Venous blood specimen / Unknown Venipuncture / Unknown 06/01/2025 4:47 PM EDT 06/01/2025 4:53 PM EDT Klarissa L [place] DO LAB BLOOD ORDERABLES Final Re sult Performing Organization Address City/[facility]/ZIP Co de Phone Number [facility] [address] [place] [address] * (ABNORMAL) CBC (06/01/2025 4:47 PM EDT) [facility] WBC Count 6.37 3.70 - 10.30 10*3/uL LAB HEMATOLOGY METHOD 06/01/2025 5:00 PM EDT [facility] RBC Count 3.11(L) 3.90 - 5.20 10*6/uL LAB HEMATOLOGY METHOD 06/01/2025 5:00 PM EDT [facility] HGB 8.6(L) 11.2 - 15.7 g/dL LAB HEMATOLOGY METHOD 06/01/2025 5:00 PM EDT [facility] HCT 30.3(L) 34.0 - 45.0 % LAB HEMATOLOGY METHOD 06/01/2025 5:00 PM EDT [facility] Platelet Count 46(L) 155 - 369 10*3/uL LAB HEMATOLOGY METHOD 06/01/2025 5:00 PM EDT [facility] MCV 97 79 - 98 fL LAB HEMATOLOGY METHOD 06/01/2025 5:00 PM EDT [facility] MCH 27.7 26.0 - 32.0 pg LAB HEMATOLOGY METHOD 06/01/2025 5:00 PM EDT [facility] MCHC 28.4(L) 30.7 - 35.5 g/dL LAB HEMATOLOGY METHOD 06/01/2025 5:00 PM EDT [facility] RDW 15.4(H) 11.5 - 14.5 % LAB HEMATOLOGY METHOD 06/01/2025 5:00 PM EDT [facility] MPV LAB HEMATOLOGY METHOD 06/01/2025 5:00 PM EDT [facility] Comment:Not Measured nRBC 0.0 <=0.0 per 100 WBCs LAB HEMATOLOGY METHOD 06/01/2025 5:00 PM EDT [facility] Blood Venous blood specimen / Unknown Venipuncture / Unknown 06/01/2025 4:47 PM EDT 06/01/2025 4:53 PM EDT us Klarissa Monterroso DO LAB BLOOD ORDERABLES Final Re sult [facility] [address] [place] [address] * (ABNORMAL) CMP (06/01/2025 4:47 PM EDT) Glucose, Plasma 166(H) 74 - 99 mg/dL 06/01/2025 5:16 PM EDT [facility] BUN, Plasma 57(H) 7 - 21 mg/dL 06/01/2025 5:16 PM EDT [facility] Creatinine, Plasma 3.87(H) 0.60 - 1.10 mg/dL 06/01/2025 5:16 PM EDT [facility] BUN/Creatinine Ratio 15 06/01/2025 5:16 PM EDT [facility] Sodium, Plasma 138 136 - 145 mmol/L 06/01/2025 5:16 PM EDT [facility] Potassium, Plasma 3.4(L) 3.6 - 4.9 mmol/L 06/01/2025 5:16 PM EDT [facility] Chloride, Plasma 96(L) 97 - 107 mmol/L 06/01/2025 5:16 PM EDT [facility] CO2, Plasma 25 22 - 29 mmol/L 06/01/2025 5:16 PM EDT [facility] Anion Gap 17(H) 6 - 16 mmol/L 06/01/2025 5:16 PM EDT [facility] Total Calcium, Plasma 8.3(L) 8.9 - 10.2 mg/dL 06/01/2025 5:16 PM EDT [facility] Total Protein 6.4 6.3 - 7.9 g/dL 06/01/2025 5:16 PM EDT [facility] Albumin, Plasma 3.3(L) 3.5 - 5.2 g/dL 06/01/2025 5:16 PM EDT [facility] AST, Plasma 19 10 - 35 U/L 06/01/2025 5:16 PM EDT [facility] ALT, Plasma <5(L) 10 - 35 U/L 06/01/2025 5:16 PM EDT [facility] Alkaline Phosphatase, Plasma 224(H) 46 - 142 U/L 06/01/2025 5:16 PM EDT [facility] Total Bilirubin, Plasma 0.3 0.2 - 1.1 mg/dL 06/01/2025 5:16 PM EDT [facility] eGFRcr 13.1 mL/min/1.7 3m*2 06/01/2025 5:16 PM EDT [facility] Comment:Reported eGFRcr in m L/min/1.73m2 is based the CKD-EPI 2020 equation that does not use a race coefficient. 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 History of glaucoma [...] Coronary atherosclerosis of unspecified type of vessel, [place] or graft Anemia Unspecified anemia Severe protein-calorie [...] Until Discontinued 1000 (Given - Provider: Hazel Pham RN) 0857 (Given - Provider: Hazel Pham, [...] Discontinued, Routine 1000 (Given - Provider: Hazel Phma RN)2101 (Given - Provider: Aranza Santos RN) [...] documented as of this encounter Care Teams 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
--- OUTSIDE RECORDS SUMMARY | 2025-07-28 16:19 | XMS_ITS | Continuity of Care Document ---
Author Organization [facility] Phone Care Team Providers Care Dehorner Name Role Phone NO, DEFINED P Primary Care Unavailable LAILA MERLOS Unavailable HEIDI MCADAMS Primary Attending HEIDI MCADAMS Unavailable HOLLIE BOSTON Unavailable Unavailable HEIDI MCADAMS Admitting LARISSA BAUMANN Unavailable ALLERGIES AND ADVERSE REACTIONS ALLERGIES AND ADVERSE REACTIONS Code System Allergy Substance Adverse Reaction Date Reaction (Severity) [place] [id number] RXNorm Lisinopril Adverse reaction to substance Not Specified active [id number] on July 25, 2025 4:49:10 PM [facility] [id number] RXNorm Insulin Glargine Adverse reaction to substance unknown active [id number] on July 25, 2025 4:49:10 PM [place] ASSESSMENTS Congestive heart failure ; Dependence on supplemental oxygen ; Acute respiratory failure ; PROBLEMS PATIENT PROBLEMS Code Description/Comments Category Status Upda myriam By [id number] Congestive heart failure active [id number] on July 25, 2025 4:01:32 PM [facility] [id number] Dependence on supplemental oxygen active [id number] on July 25, 2025 4:02:27 PM UT [id number] Acute respiratory failure active [id number] on July 25, 2025 4:38:08 PM [facility] RESULTS Patient: VIET CAO Date of : 1970 4 LABORATORY RESULTS ORDER 700: GLUCOSE BEDSIDE T ESTING (LOINC: 05988-2) ORDER DATE: July 25, 2025 4:08:00 PM UT Specimen Source: WHOLE BLOOD Specimen Type: Whole blood s ample PERFORMING LAB: [address] [id number] Result Comment: July 25, 2025 4:13:00 PM UTC Test performed by: [id number] ; Instrument: [id number] Final Result Date: July 25, 2025 4:13:00 PM UTC LOINC TEST FLAG RESULT [place] [address]-9 Glucose [Mass/volume] in Capillary blood by Glucometer H 114 mg/dl 70 mg/dl - 105 mg/dl July 25, 2025 4:13:00 PM UTC ORDER 800: ARTERIAL BLOOD GA S (LOINC: 67075-0) ORDER DATE: July 25, 2025 4:14:00 PM UTC Specimen Source: WHOLE BLOOD Specimen Type: Whole blood s ample PERFORMING LAB: [address] [id number] Result Comment: Final Result Date: July 25, 2025 5:46:00 PM UTC (TECH: CLS) LOINC TEST FLAG RESULT [place] [address]-9 Arterial patency Wrist artery --pre arterial puncture N YES July 25, 2025 5:46:00 PM UTC (TECH: CLS) 24392-9 Arterial patency Wrist artery --pre arterial puncture N POSITIVE July 25, 2025 5:46:00 PM UTC (TECH: CLS) 2744-1 pH of Arterial blood LL 7.28 pH Units 7 .35 pH Units - 7.45 pH Units July 25, 2025 5:46:00 PM UTC (TECH: CLS) 2019-8 Carbon dioxide [Partial pressure] in Arterial blood H 49.4 mmHg 35 mmHg - 45 mmHg July 25, 2025 5:46:00 PM UTC (TECH: CLS) 2703-7 Oxygen [Partial pressure] in Arterial blood LL <58 mmHg 80 mmHg - 100 mmHg July 25, 2025 5:46:00 PM UTC (TECH: CLS) 88894-4 Bicarbonate [Moles/volume] standard in Arterial blood N 22.4 mmol/L 18 mmol/L - 23 mmol/L July 25, 2025 5:46:00 PM UTC (TECH: CLS) 78345-6 Base excess standard in Arterial blood by calculation L -4.3 mmol/L -2 July 25, 2025 5:46:00 PM UTC (TECH: CLS) 2714-4 Fractional oxyhemoglobin in Arterial blood LL 79.6 % 95 % - 100 % July 25, 2025 5:46:00 PM UTC (TECH: CLS) 3150-0 Inhaled oxygen concentration N 80 % July 25, 2025 5:46:00 PM UTC (TECH: CLS) 02098-5 Body site N RIGHT RADIAL Novembe r 2024 5:46:00 PM UTC (TECH: CLS) 8310-5 Body temperature N 37.0 F Nov ember 2024 5:46:00 PM UTC (TECH: CLS) 88291-8 Oxygen gas flow Oxygen delivery system N NASAL CANNULA July 25, 2025 5:46:00 PM UTC (TECH: CLS) ORDER 1000: CBC AUTO W DIFF (LOINC: 09690-7) ORDER DATE: July 25, 2025 4:37:00 PM UTC Specimen Source: EDTA Specimen Type: Blood specime n with EDTA PERFORMING LAB: [address] [id number] Result Comment: Final Result Date: July 25, 2025 7:55:00 PM UTC (TECH: ARR) LOINC TEST FLAG RESULT REFERENCE RANGE UPDA MYRIAM BY 6690-2 Leukocytes [#/volume] in Blood by Automated count N 6.9 K/ul 4.0 K/ul - 10.5 K/ul July 25, 2025 7:55:00 PM UTC (TECH: ARR) 789-8 Erythrocytes [#/volume] in Blood by Automated count L 3.1 M/mm3 4.2 M/mm3 - 6.4 M/mm3 July 25, 2025 7:55:00 PM UTC (TECH: ARR) 718-7 Hemoglobin [Mass/volume] in Blood L 9.1 gm/dl 12.5 gm/dl - 16.0 gm/dl July 25, 2025 7:55:00 PM UTC (TECH: ARR) 82955-0 Hematocrit [Volume Fraction] of Blood L 31.0 % 37.0 % - 47.0 % July 25, 2025 7:55:00 PM UTC (TECH: ARR) 787-2 Erythrocyte mean corpuscular volume [Entitic volume] by Automated count N 99.4 fl 78 fl - 100 fl July 25, 2025 7:55:00 PM UTC (TECH: ARR) 785-6 Erythrocyte mean corpuscular hemoglobin [Entitic mass] by Automated count N 29.2 pg 27 pg - 31 pg July 25, 2025 7:55:00 PM UTC (TECH: ARR) 786-4 Erythrocyte mean corpuscular hemoglobin concentration [Mass/volume] by Automated count L 29.4 g/dl 32 g/dl - 36 g/dl July 25, 2025 7:55:00 PM UTC (TECH: ARR) 05861-6 Erythrocyte distribution width [Ratio] H 18.7 % 11.5 % - 14.0 % July 25, 2025 7:55:00 PM UTC (TECH: ARR) 777-3 Platelets [#/volume] in Blood by Automated count L 65 K/ul 150 K/ul - 450 K/ul July 25, 2025 7:55:00 PM UTC (TECH: ARR) 35539-3 Platelet mean volume [Entitic volume] in Blood by Automated count H 12.5 fl 6 fl - 9.5 fl July 25, 2025 7:55:00 PM UTC (TECH: ARR) 97532-0 Neutrophils/100 leukocytes in Blood H 76.4 % 43 % - 65 % July 25, 2025 7:55:00 PM UTC (TECH: ARR) 736-9 Lymphocytes/100 leukocytes in Blood by Automated count L 11.9 % 20.5 % - 45.5 % July 25, 2025 7:55:00 PM UTC (TECH: ARR) 5905-5 Monocytes/100 leukocytes in Blood by Automated count N 6.8 % 5.5 % - 11.7 % July 25, 2025 7:55:00 PM UTC (TECH: ARR) 713-8 Eosinophils/100 leukocytes in Blood by Automated count N 2.3 % 0.9 % - 2.9 % July 25, 2025 7:55:00 PM UTC (TECH: ARR) 706-2 Basophils/100 leukocytes in Blood by Automated count N 0.6 % 0.2 % - 1.0 % July 25, 2025 7:55:00 PM UTC (TECH: ARR) 47069-9 Immature granulocytes/100 leukocytes in Blood by Automated count H 2.0 % 0.0 % - 0.8 % July 25, 2025 7:55:00 PM UTC (TECH: ARR) 18105-9 Nucleated cells [#/volume] in Blood N 0.4 % July 25, 2025 7:55:00 PM UTC (TECH: ARR) 42652-1 Neutrophils [#/volume] in Blood H 5.2 K/uL 2.2 K/uL - 4.8 K/uL July 25, 2025 7:55:00 PM UTC (TECH: ARR) 731-0 Lymphocytes [#/volume] in Blood by Automated count L 0.8 CELL/MCL 1.3 CELL/MCL - 2.9 CELL/MCL July 25, 2025 7:55:00 PM UTC (TECH: ARR) 742-7 Monocytes [#/volume] in Blood by Automated count N 0.5 CELL/MCL 0.3 CELL/MCL - 0.8 CELL/MCL July 25, 2025 7:55:00 PM UTC (TECH: ARR) 711-2 Eosinophils [#/volume] in Blood by Automated count N 0.2 CELL/MCL 0 CELL/MCL - 0.2 CELL/MCL July 25, 2025 7:55:00 PM UTC (TECH: ARR) 704-7 Basophils [#/volume] in Blood by Automated count N 0.0 CELL/MCL 0.0 CELL/MCL - 1.0 CELL/MCL July 25, 2025 7:55:00 PM UTC (TECH: ARR) 62768-5 Immature granulocytes [#/volume] in Blood N 0.14 K/ul July 25, 2025 7:55:00 PM UTC (TECH: ARR) 07692-7 Nucleated cells [#/volume] in Blood N 0.03 K/uL July 25, 2025 7:55:00 PM UTC (TECH: ARR) 62417-0 Manual Differential panel - Blood N NO July 25, 2025 7:55:00 PM UTC (TECH: ARR) 778-1 Platelets [#/volume] in Blood by Manual count DECREASED ADEQUATE July 25, 2025 7:55:00 PM UTC (TECH: ARR) 9317-9 Platelet adequacy [Presence] in Blood by Light microscopy N NORMAL NORMAL July 25, 2025 7:55:00 PM UTC (TECH: ARR) 45316-9 Erythrocytes [Morphology] in Blood by Automated count ABNORMAL NORMAL July 25, 2025 7:55:00 PM UTC (TECH: ARR) 702-1 Anisocytosis [Presence] in Blood by Light microscopy N 1+ NONE SEEN July 25, 2025 7:55:00 PM UTC (TECH: ARR) 728-6 Hypochromia [Presence] in Blood by Light microscopy N SLIGHT NONE SEEN July 25, 2025 7:55:00 PM UTC (TECH: ARR) ORDER 1100: COMP METABOLIC P SANTANA (LOINC: 88852-6) ORDER DATE: July 25, 2025 4:37:00 PM UTC Specimen Source: PLASMA Specimen Type: Plasma specim en PERFORMING LAB: [address] [id number] Result Comment: Final Result Date: July 25, 2025 6:37:00 PM UTC (TECH: KAC) LOINC TEST FLAG RESULT REFERENCE RANGE UPDA MYRIAM BY 2951-2 Sodium [Moles/volume ] in Serum or Plasma N 139 mmol/L 136 mmol/L - 145 mmol/L July 25, 2025 6:26:00 PM UTC (TECH: TGD) 2823-3 Potassium [Moles/volume] in Serum or Plasma N 4.3 mmol/L 3.6 mmol/L - 5.0 mmol/L July 25, 2025 6:26:00 PM UTC (TECH: TGD) 2075-0 Chloride [Moles/volume] in Serum or Plasma N 99 mmol/L 98 mmol/L - 107 mmol/L July 25, 2025 6:26:00 PM UTC (TECH: TGD) 8-9 Carbon dioxide, tota l [Moles/volume] in Serum or Plasma N 25.7 mmol/L 21.0 mmol/L - 32.0 mmol/L July 25, 2025 6:26:00 PM UTC (TECH: TGD) 06591-9 Anion gap in Blood N 18.6 N ov2024 6:26:00 PM UTC (TECH: TGD) 2345-7 Glucose [Mass/volume ] in Serum or Plasma N 102 mg/dl 70 mg/dl - 120 mg/dl July 25, 2025 6:26:00 PM UTC (TECH: TGD) 6299-2 Urea nitrogen [Mass/volume] in Blood H 65 mg/dL 7 mg/dL - 18 mg/dL July 25, 2025 6:26:00 PM UTC (TECH: [employer]) 56887-7 Creatinine [Moles/volume] in Blood H 3.5 mg/dL 0.6 mg/dL - 1.3 mg/dL July 25, 2025 6:26:00 PM UTC (TECH: MEDNAX) 32410-0 Glomerular filtratio n rate/1.73 sq M.predicted by Creatinine-based formula (MDRD) L 15 mlpermin 60 mlpermin July 25, 2025 6:26:00 PM UTC (TECH: [employer]) 19232-4 Osmolality of Serum or Plasma by calculated by sum of electrolytes H 308 mosm/kg 275 mosm/kg - 301 mosm/kg July 25, 2025 6:26:00 PM UTC (TECH: [employer]) 2885-2 Protein [Mass/volume ] in Serum or Plasma L 5.7 g/dl 6.4 g/dl - 8.2 g/dl July 25, 2025 6:37:00 PM UTC (TECH: [employer]) 1751-7 Albumin [Mass/volume ] in Serum or Plasma L 2.3 g/dl 3.4 g/dl - 5.0 g/dl July 25, 2025 6:37:00 PM UT (TECH: [employer]) 2336-6 Globulin [Mass/volum e] in Serum N 3.4 July 25, 2025 6:37:00 PM UTC (TECH: [employer]) 1759-0 Albumin/Globulin [Ma ss Ratio] in Serum or Plasma N 0.7 0.7 - 2 July 25, 2025 6:37:00 PM UTC (TECH: [employer]) 39901-4 Calcium [Mass/volume ] in Serum or Plasma L 7.7 mg/dl 8.5 mg/dl - 10.5 mg/dl July 25, 2025 6:26:00 PM UT (TECH: [employer]) 1975-2 Bilirubin.total [Mass/volume] in Serum or Plasma N 0.60 mg/dL 0.10 mg/dL - 1.00 mg/dL July 25, 2025 6:37:00 PM UTC (TECH: [employer]) 1920-8 Aspartate aminotransferase [Enzymatic activity/volume] in Serum or Plasma N 12 U/L 0 U/L - 37 U/L July 25, 2025 6:37:00 PM UTC (TECH: KAC) 1742-6 Alanine aminotransferase [Enzymatic activity/volume] in Serum or Plasma N 19 U/L 0 U/L - 65 U/L July 25, 2025 6:37:00 PM UTC (TECH: KAC) 6768-6 Alkaline phosphatase [Enzymatic activity/volume] in Serum or Plasma H 180 U/L 46 U/L - 116 U/L July 25, 2025 6:37:00 PM UT (TECH: KAC) ORDER 1500: LACTIC ACID (JOSE NC: 2524-7) ORDER DATE: July 25, 2025 4:37:00 PM UT Specimen Source: PLASMA Specimen Type: Plasma specim en PERFORMING LAB: [address] [id number] Result Comment: Final Result Date: July 25, 2025 6:35:00 PM UT (TECH: KAC) LOINC TEST FLAG RESULT REFERENCE RANGE UPDA MYRIAM BY 2524-7 Lactate [Moles/volume] in Serum or Plasma N 0.9 mmol/L 0.4 mmol/L - 2.0 mmol/L July 25, 2025 6:35:00 PM UT (TECH: KAC) ORDER 1600: PROCALCITONIN (L OINC: 85247-5) ORDER DATE: July 25, 2025 4:37:00 PM UTC Specimen Source: PLASMA Specimen Type: Plasma specim en PERFORMING LAB: [address] [id number] Result Comment: Final Result Date: July 25, 2025 6:42:00 PM UT (TECH: ADB) LOINC TEST FLAG RESULT [place] [address]-4 Procalcitonin [Mass/volume] in Serum or Plasma by Immunoassay H 0.90 ng/mL 0.00 ng/mL - 0.5 ng/mL July 25, 2025 6:42:00 PM UTC (TECH: ADB) ORDER 1700: NT-PRO BNP (LOIN C: 29337-8) ORDER DATE: July 25, 2025 4:37:00 PM UTC Specimen Source: PLASMA Specimen Type: Plasma specim en PERFORMING LAB: [address] [id number] Result Comment: Final Result Date: July 26, 2025 12:31:00 AM UTC (TECH: AY) LOINC TEST FLAG RESULT [place] [address]-4 Natriuretic peptide B [Mass or Moles/volume] in Serum or Plasma H 965437.00 PG/ML 0.00 PG/ML - 125.00 PG/ML July 26, 2025 12:31:00 AM UTC (TECH: AY) ORDER 1800: RESPIRATORY PANE L RP (LOINC: 40869-1) ORDER DATE: July 25, 2025 4:40:00 PM UTC Specimen Source: [employer] SWAB Specimen Type: Nasopharyngea l airway insertion PERFORMING LAB: [address] [id number] Result Comment: Final Result Date: July 25, 2025 9:03:00 PM UTC (TECH: BH1) LOINC TEST FLAG RESULT [place] [address]-3 Adenovirus DNA [Presence] in Nasopharynx by Target amplification with non-probe based detection N NOT DETECTED NOT DETECTED July 25, 2025 9:03:00 PM UTC (TECH: BH1) 38028-7 Bordetella parapertussis [id number] DNA [Presence] in Nasopharynx by AMELIE with non-probe detection N NOT DETECTED NOT DETECTED July 25, 2025 9:03:00 PM UTC (TECH: BH1) 05278-4 Human coronavirus 229E RNA [Presence] in Nasopharynx by Target amplification with non-probe based detection N NOT DETECTED NOT DETECTED July 25, 2025 9:03:00 PM UTC (TECH: BH1) 35581-6 Human coronavirus HKU1 RNA [Presence] in Nasopharynx by Target amplification with non-probe based detection N NOT DETECTED NOT DETECTED July 25, 2025 9:03:00 PM UTC (TECH: BH1) 18949-2 Human coronavirus NL63 RNA [Presence] in Nasopharynx by Target amplification with non-probe based detection N NOT DETECTED NOT DETECTED July 25, 2025 9:03:00 PM UTC (TECH: BH1) 97775-1 Human coronavirus OC43 RNA [Presence] in Nasopharynx by Target amplification with non-probe based detection N NOT DETECTED NOT DETECTED July 25, 2025 9:03:00 PM UTC (TECH: BH1) 10564-2 Human metapneumoviru s RNA [Presence] in Nasopharynx by Target amplification with non-probe based detection N NOT DETECTED NOT DETECTED July 25, 2025 9:03:00 PM UTC (TECH: BH1) 13159-3 Rhinovirus+Enterovir u s RNA [Presence] in Nasopharynx by Target amplification with non-probe based detection DETECTED NOT DETECTED July 25, 2025 9:03:00 PM UTC (TECH: BH1) 09264-8 Influenza virus A RN A [Presence] in Nasopharynx by Target amplification with non-probe based detection N NOT DETECTED NOT DETECTED July 25, 2025 9:03:00 PM UTC (TECH: BH1) 66377-9 Influenza virus A H1 RNA [Presence] in Nasopharynx by Target amplification with non-probe based detection N N/A NOT DETECTED July 25, 2025 9:03:00 PM UTC (TECH: BH1) 49449-1 Influenza virus A H1 2009 pandemic RNA [Presence] in Nasopharynx by Target amplification with non-probe based detection N N/A NOT DETECTED July 25, 2025 9:03:00 PM UTC (TECH: Skyrobotic1) 82699-5 Influenza virus A H3 RNA [Presence] in Nasopharynx by Target amplification with non-probe based detection N N/A NOT DETECTED July 25, 2025 9:03:00 PM UTC (TECH: Skyrobotic1) 00153-2 Influenza virus B RN A [Presence] in Nasopharynx by Target amplification with non-probe based detection N NOT DETECTED NOT DETECTED July 25, 2025 9:03:00 PM UTC (TECH: BH1) 85681-7 Parainfluenza virus 1 RNA [Presence] in Nasopharynx by Target amplification with non-probe based detection N NOT DETECTED NOT DETECTED July 25, 2025 9:03:00 PM UTC (TECH: BH1) 40848-0 Parainfluenza virus 2 RNA [Presence] in Nasopharynx by Target amplification with non-probe based detection N NOT DETECTED NOT DETECTED July 25, 2025 9:03:00 PM UTC (TECH: BH1) 23162-5 Parainfluenza virus 3 RNA [Presence] in Nasopharynx by Target amplification with non-probe based detection N NOT DETECTED NOT DETECTED July 25, 2025 9:03:00 PM UTC (TECH: BH1) 62766-4 Parainfluenza virus 4 RNA [Presence] in Nasopharynx by Target amplification with non-probe based detection N NOT DETECTED NOT DETECTED July 25, 2025 9:03:00 PM UTC (TECH: BH1) 07997-5 Respiratory syncytia l virus RNA [Presence] in Nasopharynx by Target amplification with non-probe based detection N NOT DETECTED NOT DETECTED July 25, 2025 9:03:00 PM UTC (TECH: BH1) 67791-1 Bordetella pertussis toxin promoter region [Presence] in Nasopharynx by Target amplification with non-probe based detection N NOT DETECTED NOT DETECTED July 25, 2025 9:03:00 PM UTC (TECH: BH1) 37886-5 Chlamydophila pneumoniae DNA [Presence] in Nasopharynx by Target amplification with non-probe based detection N NOT DETECTED NOT DETECTED July 25, 2025 9:03:00 PM UTC (TECH: BH1) 47711-6 Mycoplasma pneumonia e DNA [Presence] in Nasopharynx by Target amplification with non-probe based detection N NOT DETECTED NOT DETECTED July 25, 2025 9:03:00 PM UTC (TECH: BH1) 12968-5 SARS-CoV-2 (COVID-19 ) RNA [Presence] in Nasopharynx by AMELIE with non-probe detection N NOT DETECTED NOT DETECTED July 25, 2025 9:03:00 PM UTC (TECH: BH1) ORDER 2500: GRAM STAIN (LOIN C: 664-3) ORDER DATE: July 25, 2025 4:40:00 PM UTC Specimen Source: GRAM STAIN Specimen Type: Gram stain wy thod PERFORMING LAB: [place] [id number] [facility] [id number] Result Comment: Final Result Date: July 26, 2025 6:27:00 PM UTC (TECH: JCG) LOINC TEST FLAG RESULT [place] [address]-0 Specimen source [Identifier] of Unspecified specimen N SPUTUM July 26, 2025 6:27:00 PM UTC (TECH: JCG) 664-3 Microscopic observation [Identifier] in Unspecified specimen by Gram stain N NO ORGANISMS July 26, 2025 6:27:00 PM UTC (TECH: JCG) 96393-7 Morphology [interpretation] in Blood Narrative N SEEN July 26, 2025 6:27:00 PM UTC (TECH: JCG) 04152-1 Leukocytes [Presence] in Unspecified specimen by Gram stain N >25 July 26, 2025 6:27:00 PM UTC (TECH: JCG) 74705-5 Epithelial cells [Presence] in Unspecified specimen by Gram stain N <10 July 26, 2025 6:27:00 PM UTC (TECH: JCG) 02150-1 Yeast [Presence] in Unspecified specimen by Wet preparation N NO YST SEEN July 26, 2025 6:27:00 PM UTC (TECH: JCG) 04622-4 Mittal score of Sputum Qualitative by Light microscopy N ACCEPTABLE July 26, 2025 6:27:00 PM UTC (TECH: JCG) 99086-9 Gram positive bacteria identified [Interpretation] by Probe in Positive blood culture N PASS PASS July 26, 2025 6:27:00 PM UTC (TECH: JCG) 84198-7 Gram negative bacilli identified in Isolate by Organism specific culture N PASS PASS July 26, 2025 6:27:00 PM UTC (TECH: JCG) ORDER 2800: CULTURE MRSA SCR EEN (LOINC: 99468-3) ORDER DATE: July 25, 2025 4:40:00 PM UTC Specimen Source: [employer] SWAB Specimen Type: Nasopharyngea l airway insertion PERFORMING LAB: [address] [id number] Result Comment: Final Result Date: July 26, 2025 5:46:00 PM UTC (TECH: JCG) LOINC TEST FLAG [place]ULT [place] [address]-2 Methicillin resistan t Staphylococcus aureus [Presence] in Unspecified specimen by Organism specific culture N NEGATIVE NEGATIVE July 26, 2025 5:46:00 PM UTC (TECH: JCG) ORDER 2900: CBC NO DIFF HEMO GRAM (LOINC: 32158-0) ORDER DATE: July 25, 2025 4:40:00 PM UTC Specimen Source: EDTA Specimen Type: Blood specime n with EDTA PERFORMING LAB: [address] [id number] Result Comment: Final Result Date: July 26, 2025 8:40:00 AM UTC (TECH: Brandizi) LOINC TEST FLAG RESULT REFERENCE RANGE UPDA MYRIAM BY 6690-2 Leukocytes [#/volume ] in Blood by Automated count N 8.2 K/ul 4.0 K/ul - 10.5 K/ul July 26, 2025 8:40:00 AM UTC (TECH: Brandizi) 789-8 Erythrocytes [#/volume] in Blood by Automated count L 3.3 M/mm3 4.2 M/mm3 - 6.4 M/mm3 July 26, 2025 8:40:00 AM UTC (TECH: Brandizi) 478-7 Hemoglobin [Mass/volume] in Blood L 9.7 gm/dl 12.5 gm/dl - 16.0 gm/dl July 26, 2025 8:40:00 AM UTC (TECH: Brandizi) 30842-2 Hematocrit [Volume Fraction] of Blood L 32.6 % 37.0 % - 47.0 % July 26, 2025 8:40:00 AM UTC (Ion Torrent: Brandizi) 787-2 Erythrocyte mean corpuscular volume [Entitic volume] by Automated count N 98.8 fl 78 fl - 100 fl July 26, 2025 8:40:00 AM UTC (Ion Torrent: Brandizi) 785-6 Erythrocyte mean corpuscular hemoglobin [Entitic mass] by Automated count N 29.4 pg 27 pg - 31 pg July 26, 2025 8:40:00 AM UTC (Ion Torrent: Brandizi) 786-4 Erythrocyte mean corpuscular hemoglobin concentration [Mass/volume] by Automated count L 29.8 g/dl 32 g/dl - 36 g/dl July 26, 2025 8:40:00 AM UTC (TECH: Brandizi) 44448-1 Erythrocyte distribution width [Ratio] H 18.6 % 11.5 % - 14.0 % July 26, 2025 8:40:00 AM UTC (TECH: Brandizi) 777-3 Platelets [#/volume] in Blood by Automated count L 62 K/ul 150 K/ul - 450 K/ul July 26, 2025 8:40:00 AM UTC (TECH: Brandizi) 08742-1 Platelet mean volume [Entitic volume] in Blood by Automated count H 12.2 fl 6 fl - 9.5 fl July 26, 2025 8:40:00 AM UT (TECH: ME) 13176-3 Manual Differential panel - Blood N NO July 26, 2025 8:40:00 AM [facility] (TECH: ME) ORDER 3000: COMP METABOLIC P SANTANA (LOINC: 89681-7) ORDER DATE: July 25, 2025 4:40:00 PM UT Specimen Source: PLASMA Specimen Type: Plasma specim en PERFORMING LAB: [address] [id number] Result Comment: Final Result Date: July 26, 2025 8:41:00 AM UT (TECH: AY) LOINC TEST FLAG RESULT REFERENCE RANGE UPDA MYRIAM BY 2951-2 Sodium [Moles/volume ] in Serum or Plasma N 138 mmol/L 136 mmol/L - 145 mmol/L July 26, 2025 8:41:00 AM UT (TECH: AY) 2823-3 Potassium [Moles/volume] in Serum or Plasma N 4.6 mmol/L 3.6 mmol/L - 5.0 mmol/L July 26, 2025 8:41:00 AM UT (TECH: AY) 2075-0 Chloride [Moles/volume] in Serum or Plasma N 99 mmol/L 98 mmol/L - 107 mmol/L July 26, 2025 8:41:00 AM [facility] (TECH: AY) 8-9 Carbon dioxide, tota l [Moles/volume] in Serum or Plasma N 23.4 mmol/L 21.0 mmol/L - 32.0 mmol/L July 26, 2025 8:41:00 AM UT (TECH: AY) 79790-6 Anion gap in Blood N 20.2 N ov2024 8:41:00 AM UT (TECH: AY) 2345-7 Glucose [Mass/volume ] in Serum or Plasma H 217 mg/dl 70 mg/dl - 120 mg/dl July 26, 2025 8:41:00 AM UT (TECH: AY) 6299-2 Urea nitrogen [Mass/volume] in Blood H 49 mg/dL 7 mg/dL - 18 mg/dL July 26, 2025 8:41:00 AM UT (TECH: AY) 84385-4 Creatinine [Moles/volume] in Blood H 2.8 mg/dL 0.6 mg/dL - 1.3 mg/dL July 26, 2025 8:41:00 AM [facility] (TECH: AY) 21320-3 Glomerular filtratio n rate/1.73 sq M.predicted by Creatinine-based formula (MDRD) L 19 mlpermin 60 mlpermin July 26, 2025 8:41:00 AM [facility] (TECH: AY) 80099-7 Osmolality of Serum or Plasma by calculated by sum of electrolytes H 307 mosm/kg 275 mosm/kg - 301 mosm/kg July 26, 2025 8:41:00 AM [facility] (TECH: AY) 2885-2 Protein [Mass/volume ] in Serum or Plasma N 6.9 g/dl 6.4 g/dl - 8.2 g/dl July 26, 2025 8:41:00 AM [facility] (TECH: AY) 1751-7 Albumin [Mass/volume ] in Serum or Plasma L 2.5 g/dl 3.4 g/dl - 5.0 g/dl July 26, 2025 8:41:00 AM [facility] (TECH: AY) 2336-6 Globulin [Mass/volum e] in Serum N 4.4 July 26, 2025 8:41:00 AM [facility] (TECH: AY) 1759-0 Albumin/Globulin [Ma ss Ratio] in Serum or Plasma L 0.6 0.7 - 2 July 26, 2025 8:41:00 AM [facility] (TECH: AY) 72256-3 Calcium [Mass/volume ] in Serum or Plasma N 8.5 mg/dl 8.5 mg/dl - 10.5 mg/dl July 26, 2025 8:41:00 AM [facility] (TECH: AY) 1975-2 Bilirubin.total [Mass/volume] in Serum or Plasma N 0.70 mg/dL 0.10 mg/dL - 1.00 mg/dL July 26, 2025 8:41:00 AM [facility] (TECH: AY) 1920-8 Aspartate aminotransferase [Enzymatic activity/volume] in Serum or Plasma N 14 U/L 0 U/L - 37 U/L July 26, 2025 8:41:00 AM [facility] (TECH: AY) 1742-6 Alanine aminotransferase [Enzymatic activity/volume] in Serum or Plasma N 16 U/L 0 U/L - 65 U/L July 26, 2025 8:41:00 AM [facility] (TECH: AY) 6768-6 Alkaline phosphatase [Enzymatic activity/volume] in Serum or Plasma H 194 U/L 46 U/L - 116 U/L July 26, 2025 8:41:00 AM [facility] (TECH: AY) ORDER 3100: PT PROTHROMBIN T BELLA W INR (LOINC: 93005-7) ORDER DATE: July 25, 2025 4:40:00 PM [facility] Specimen Source: PLASMA Specimen Type: Plasma specim en PERFORMING LAB: [address] [id number] Result Comment: Final Result Date: July 26, 2025 8:53:00 AM [facility] (TECH: NV) LOINC TEST FLAG [place] [address]-0 INR in Platelet poor plasma or blood by Coagulation assay N 11.0 SECONDS 9.3 SECONDS - 11.4 SECONDS July 26, 2025 8:53:00 AM [facility] (TECH: Brandizi) 6301-6 INR in Platelet poor plasma by Coagulation assay N 1.0 Ratio 0.97 Ratio - 1.05 Ratio July 26, 2025 8:53:00 AM [facility] (TECH: ME) ORDER 3200: THYROID PANEL W/ TSH (LOINC: 34809-6) ORDER DATE: July 25, 2025 4:50:00 PM [facility] Specimen Source: PLASMA Specimen Type: Plasma specim en PERFORMING LAB: [address] [id number] Result Comment: Final Result Date: July 25, 2025 6:37:00 PM [facility] (TECH: KAC) LOINC TEST FLAG RESULT REFERENCE RANGE UP[place]RIAM BY 3050-2 Triiodothyronine res in uptake (T3RU) in Serum or Plasma N 31.00 % 24.00 % - 39.00 % July 25, 2025 6:37:00 PM UT (TECH: KAC) 3025-4 Thyroxine (T4) [Mass/volume] in Blood L 3.3 MCG/DL 4.5 MCG/DL - 12.1 MCG/DL July 25, 2025 6:37:00 PM UTC (TECH: KAC) 27578-0 Thyroxine (T4) free index in Serum or Plasma L 1.02 1.60 - 3.70 July 25, 2025 6:37:00 PM UTC (TECH: KAC) 3016-3 Thyrotropin [Units/volume] in Serum or Plasma H 22.83 mIU/L 0.36 mIU/L - 3.74 mIU/L July 25, 2025 6:37:00 PM UTC (TECH: KAC) ORDER 3300: PT PROTHROMBIN T BELLA W INR (LOINC: 38289-2) ORDER DATE: July 25, 2025 4:52:00 PM UTC Specimen Source: PLASMA Specimen Type: Plasma specim en PERFORMING LAB: [address] [id number] Result Comment: Final Result Date: July 25, 2025 6:28:00 PM UTC (TECH: TGD) LOINC TEST FLAG RESULT [place] [address]-6 INR in Platelet poor plasma or blood by Coagulation assay H 12.0 SECONDS 9.3 SECONDS - 11.4 SECONDS July 25, 2025 6:28:00 PM UTC (TECH: TGD) 6301-6 INR in Platelet poor plasma by Coagulation assay H 1.1 Ratio 0.97 Ratio - 1.05 Ratio July 25, 2025 6:28:00 PM UTC (TECH: TGD) ORDER 3900: GLUCOSE BEDSIDE TESTING (LOINC: 98409-2) ORDER DATE: July 25, 2025 11:51:00 PM UTC Specimen Source: WHOLE BLOOD Specimen Type: Whole blood s ample PERFORMING LAB: [address] [id number] Result Comment: July 25, 2025 11:58:00 PM UT Test performed by: [id number] ; Instrument: [id number] Final Result Date: July 25, 2025 11:58:00 PM UTC LOINC TEST FLAG RESULT [place] [address]-8 Glucose [Mass/volume] in Capillary blood by Glucometer N 91 mg/dl 70 mg/dl - 105 mg/dl July 25, 2025 11:58:00 PM UT ORDER 4200: CULTURE MRSA SCR EEN (LOINC: 08683-9) ORDER DATE: July 26, 2025 2:18:00 AM UTC Specimen Source: [employer] SWAB Specimen Type: Nasopharyngea l airway insertion PERFORMING LAB: [address] [id number] Result Comment: Final Result Date: July 27, 2025 1:06:00 PM UTC (TECH: JNJ) LOINC TEST FLAG [place]ULT [place] [address]-6 Methicillin resistan t Staphylococcus aureus [Presence] in Unspecified specimen by Organism specific culture N NEGATIVE NEGATIVE July 27, 2025 1:06:00 PM UTC (TECH: JNJ) ORDER 5600: ARTERIAL BLOOD G (LOINC: 48337-1) ORDER DATE: July 26, 2025 4:14:00 PM UTC Specimen Source: WHOLE BLOOD Specimen Type: Whole blood s ample PERFORMING LAB: [address] [id number] Result Comment: Final Result Date: July 26, 2025 5:51:00 PM UTC (TECH: KP) LOINC TEST FLAG RESULT [place] [address]-9 Arterial patency Wrist artery --pre arterial puncture N YES July 26, 2025 5:51:00 PM UTC (TECH: KP) 49773-6 Arterial patency Wrist artery --pre arterial puncture N POSITIVE July 26, 2025 5:51:00 PM UTC (TECH: KP) 2744-1 pH of Arterial blood L 7.30 pH Units 7 .35 pH Units - 7.45 pH Units July 26, 2025 5:51:00 PM UTC (TECH: KP) 2019-8 Carbon dioxide [Partial pressure] in Arterial blood N 40.6 mmHg 35 mmHg - 45 mmHg July 26, 2025 5:51:00 PM UTC (TECH: KP) 2703-7 Oxygen [Partial pressure] in Arterial blood H 142.1 mmHg 80 mmHg - 100 mmHg July 26, 2025 5:51:00 PM UTC (TECH: KP) 35019-8 Bicarbonate [Moles/volume] standard in Arterial blood N 19.4 mmol/L 18 mmol/L - 23 mmol/L July 26, 2025 5:51:00 PM UTC (TECH: KP) 73316-9 Base excess standard in Arterial blood by calculation L -6.6 mmol/L -2 July 26, 2025 5:51:00 PM UTC (TECH: KP) 9954-4 Fractional oxyhemoglobin in Arterial blood N 98.9 % 95 % - 100 % July 26, 2025 5:51:00 PM UTC (TECH: [employer] 3150-0 Inhaled oxygen concentration N 90 % July 26, 2025 5:51:00 PM UTC (TECH: KP) 11170-1 Body site N RIGHT BRACHIAL Novem 2024 5:51:00 PM UTC (TECH: KP) 8310-5 Body temperature N 37.0 F Nov ember 2024 5:51:00 PM UTC (TECH: KP) 06000-3 Oxygen gas flow Oxygen delivery system N NASAL CANNULA July 26, 2025 5:51:00 PM UTC (TECH: [employer] ORDER 5900: GLUCOSE BEDSIDE TESTING (LOINC: 85542-5) ORDER DATE: July 26, 2025 5:22:00 PM UTC Specimen Source: WHOLE BLOOD Specimen Type: Whole blood s ample PERFORMING LAB: [address] [id number] Result Comment: July 26, 2025 5:27:00 PM UTC Test performed by: [id number] ; Instrument: [id number] Final Result Date: July 26, 2025 5:27:00 PM UTC LOINC TEST FLAG RESULT [place] [address]-1 Glucose [Mass/volume] in Capillary blood by Glucometer H 210 mg/dl 70 mg/dl - 105 mg/dl July 26, 2025 5:27:00 PM UTC ORDER 6100: CBC AUTO W DIFF (LOINC: 70146-6) ORDER DATE: July 26, 2025 8:53:00 PM UTC Specimen Source: EDTA Specimen Type: Blood specime n with EDTA PERFORMING LAB: [address] [id number] Result Comment: Final Result Date: July 27, 2025 8:07:00 AM UTC (TECH: KB2) LOINC TEST FLAG RESULT REFERENCE RANGE UPDA MYRIAM BY 6690-2 Leukocytes [#/volume] in Blood by Automated count N 6.0 K/ul 4.0 K/ul - 10.5 K/ul July 27, 2025 8:07:00 AM UTC (TECH: KB2) 789-8 Erythrocytes [#/volume] in Blood by Automated count L 3.2 M/mm3 4.2 M/mm3 - 6.4 M/mm3 July 27, 2025 8:07:00 AM UTC (TECH: Twitch) 718-7 Hemoglobin [Mass/volume] in Blood L 9.3 gm/dl 12.5 gm/dl - 16.0 gm/dl July 27, 2025 8:07:00 AM UTC (TECH: [employer]) 69601-8 Hematocrit [Volume Fraction] of Blood L 31.0 % 37.0 % - 47.0 % July 27, 2025 8:07:00 AM UTC (TECH: [employer]) 787-2 Erythrocyte mean corpuscular volume [Entitic volume] by Automated count N 97.8 fl 78 fl - 100 fl July 27, 2025 8:07:00 AM UTC (TECH: [employer]) 785-6 Erythrocyte mean corpuscular hemoglobin [Entitic mass] by Automated count N 29.3 pg 27 pg - 31 pg July 27, 2025 8:07:00 AM UTC (TECH: [employer]) 786-4 Erythrocyte mean corpuscular hemoglobin concentration [Mass/volume] by Automated count L 30.0 g/dl 32 g/dl - 36 g/dl July 27, 2025 8:07:00 AM UTC (TECH: [employer]) 69076-1 Erythrocyte distribution width [Ratio] H 17.9 % 11.5 % - 14.0 % July 27, 2025 8:07:00 AM UTC (TECH: [employer]) 777-3 Platelets [#/volume] in Blood by Automated count L 63 K/ul 150 K/ul - 450 K/ul July 27, 2025 8:07:00 AM UTC (TECH: [employer]) 23718-9 Platelet mean volume [Entitic volume] in Blood by Automated count H 11.9 fl 6 fl - 9.5 fl July 27, 2025 8:07:00 AM UTC (TECH: [employer]) 17712-5 Neutrophils/100 leukocytes in Blood H 81.4 % 43 % - 65 % July 27, 2025 8:07:00 AM UTC (TECH: [employer]) 736-9 Lymphocytes/100 leukocytes in Blood by Automated count L 8.0 % 20.5 % - 45.5 % July 27, 2025 8:07:00 AM UTC (TECH: KB2) 5905-5 Monocytes/100 leukocytes in Blood by Automated count N 8.6 % 5.5 % - 11.7 % July 27, 2025 8:07:00 AM UTC (TECH: KB2) 713-8 Eosinophils/100 leukocytes in Blood by Automated count L 0.0 % 0.9 % - 2.9 % July 27, 2025 8:07:00 AM UTC (TECH: KB2) 706-2 Basophils/100 leukocytes in Blood by Automated count N 0.2 % 0.2 % - 1.0 % July 27, 2025 8:07:00 AM UTC (TECH: KB2) 62541-2 Immature granulocytes/100 leukocytes in Blood by Automated count H 1.8 % 0.0 % - 0.8 % July 27, 2025 8:07:00 AM UTC (TECH: KB2) 47481-8 Nucleated cells [#/volume] in Blood N 0.3 % July 27, 2025 8:07:00 AM UTC (TECH: KB2) 93096-5 Neutrophils [#/volume] in Blood H 4.9 K/uL 2.2 K/uL - 4.8 K/uL July 27, 2025 8:07:00 AM UTC (TECH: KB2) 731-0 Lymphocytes [#/volume] in Blood by Automated count L 0.5 CELL/MCL 1.3 CELL/MCL - 2.9 CELL/MCL July 27, 2025 8:07:00 AM UTC (TECH: KB2) 742-7 Monocytes [#/volume] in Blood by Automated count N 0.5 CELL/MCL 0.3 CELL/MCL - 0.8 CELL/MCL July 27, 2025 8:07:00 AM UTC (TECH: KB2) 711-2 Eosinophils [#/volume] in Blood by Automated count N 0.0 CELL/MCL 0 CELL/MCL - 0.2 CELL/MCL July 27, 2025 8:07:00 AM UTC (TECH: KB2) 704-7 Basophils [#/volume] in Blood by Automated count N 0.0 CELL/MCL 0.0 CELL/MCL - 1.0 CELL/MCL July 27, 2025 8:07:00 AM UTC (TECH: KB2) 59931-0 Immature granulocytes [#/volume] in Blood N 0.11 K/ul July 27, 2025 8:07:00 AM [facility] (TECH: KB2) 81156-0 Nucleated cells [#/volume] in Blood N 0.02 K/uL July 27, 2025 8:07:00 AM [facility] (TECH: KB2) 80534-2 Manual Differential panel - Blood N NO July 27, 2025 8:07:00 AM [facility] (TECH: KB2) ORDER 6200: COMP METABOLIC P SANTANA (LOINC: 15273-2) ORDER DATE: July 26, 2025 8:53:00 PM UT Specimen Source: PLASMA Specimen Type: Plasma specim en PERFORMING LAB: [address] [id number] Result Comment: Final Result Date: July 27, 2025 8:21:00 AM [facility] (TECH: [employer]) [facility] TEST FLAG RESULT REFERENCE RANGE UPDATED BY 2951-2 Sodium [Moles/volume ] in Serum or Plasma L 135 mmol/L 136 mmol/L - 145 mmol/L July 27, 2025 8:21:00 AM [facility] (TECH: [employer]) 2823-3 Potassium [Moles/volume] in Serum or Plasma N 4.5 mmol/L 3.6 mmol/L - 5.0 mmol/L July 27, 2025 8:21:00 AM [facility] (TECH: [employer]) 2075-0 Chloride [Moles/volume] in Serum or Plasma N 98 mmol/L 98 mmol/L - 107 mmol/L July 27, 2025 8:21:00 AM [facility] (TECH: [employer]) 2027-9 Carbon dioxide, tota l [Moles/volume] in Serum or Plasma N 21.4 mmol/L 21.0 mmol/L - 32.0 mmol/L July 27, 2025 8:21:00 AM [facility] (TECH: [employer]) 44130-7 Anion gap in Blood N 20.1 N ov2024 8:21:00 AM [facility] (TECH: [employer]) 2345-7 Glucose [Mass/volume ] in Serum or Plasma H 304 mg/dl 70 mg/dl - 120 mg/dl July 27, 2025 8:21:00 AM [facility] (TECH: 60mo) 6299-2 Urea nitrogen [Mass/volume] in Blood H 67 mg/dL 7 mg/dL - 18 mg/dL July 27, 2025 8:21:00 AM [facility] (TECH: [employer]) 35746-0 Creatinine [Moles/volume] in Blood H 3.4 mg/dL 0.6 mg/dL - 1.3 mg/dL July 27, 2025 8:21:00 AM [facility] (TECH: 60mo) 54383-3 Glomerular filtratio n rate/1.73 sq M.predicted by Creatinine-based formula (MDRD) L 15 mlpermin 60 mlpermin July 27, 2025 8:21:00 AM [facility] (TECH: 60mo) 60446-5 Osmolality of Serum or Plasma by calculated by sum of electrolytes H 312 mosm/kg 275 mosm/kg - 301 mosm/kg July 27, 2025 8:21:00 AM [facility] (TECH: 60mo) 2885-2 Protein [Mass/volume ] in Serum or Plasma N 6.6 g/dl 6.4 g/dl - 8.2 g/dl July 27, 2025 8:21:00 AM [facility] (TECH: [employer]) 1751-7 Albumin [Mass/volume ] in Serum or Plasma L 2.4 g/dl 3.4 g/dl - 5.0 g/dl July 27, 2025 8:21:00 AM [facility] (TECH: [employer]) 2336-6 Globulin [Mass/volum e] in Serum N 4.2 July 27, 2025 8:21:00 AM [facility] (TECH: [employer]) 1759-0 Albumin/Globulin [Ma ss Ratio] in Serum or Plasma L 0.6 0.7 - 2 July 27, 2025 8:21:00 AM [facility] (TECH: [employer]) 66782-1 Calcium [Mass/volume ] in Serum or Plasma L 8.4 mg/dl 8.5 mg/dl - 10.5 mg/dl July 27, 2025 8:21:00 AM [facility] (TECH: 60mo) 1975-2 Bilirubin.total [Mass/volume] in Serum or Plasma N 0.50 mg/dL 0.10 mg/dL - 1.00 mg/dL July 27, 2025 8:21:00 AM UT (TECH: AH1) 1920-8 Aspartate aminotransferase [Enzymatic activity/volume] in Serum or Plasma N 10 U/L 0 U/L - 37 U/L July 27, 2025 8:21:00 AM UT (TECH: AH1) 1742-6 Alanine aminotransferase [Enzymatic activity/volume] in Serum or Plasma N 14 U/L 0 U/L - 65 U/L July 27, 2025 8:21:00 AM UT (TECH: AH1) 6768-6 Alkaline phosphatase [Enzymatic activity/volume] in Serum or Plasma H 191 U/L 46 U/L - 116 U/L July 27, 2025 8:21:00 AM UT (TECH: AH1) ORDER 6300: PROCALCITONIN (L OINC: 96216-7) ORDER DATE: July 26, 2025 8:53:00 PM UT Specimen Source: PLASMA Specimen Type: Plasma specim en PERFORMING LAB: [address] [id number] Result Comment: Final Result Date: July 27, 2025 8:44:00 AM UT (TECH: KB2) LOINC TEST FLAG RESULT [place] [address]-5 Procalcitonin [Mass/volume] in Serum or Plasma by Immunoassay H 0.60 ng/mL 0.00 ng/mL - 0.5 ng/mL July 27, 2025 8:44:00 AM UT (TECH: KB2) ORDER 6400: GLUCOSE BEDSIDE TESTING (LOINC: 15442-2) ORDER DATE: July 26, 2025 10:13:00 PM UT Specimen Source: WHOLE BLOOD Specimen Type: Whole blood s ample PERFORMING LAB: [address] [id number] Result Comment: July 26, 2025 10:15:00 PM UT Test performed by: [id number] ; Instrument: [id number] Final Result Date: July 26, 2025 10:15:00 PM UT LOINC TEST FLAG RESULT [place] [address]-5 Glucose [Mass/volume] in Capillary blood by Glucometer H 285 mg/dl 70 mg/dl - 105 mg/dl July 26, 2025 10:15:00 PM UT ORDER 6600: GLUCOSE BEDSIDE TESTING (LOINC: 97091-3) ORDER DATE: July 27, 2025 2:50:00 AM UTC Specimen Source: WHOLE BLOOD Specimen Type: Whole blood s ample PERFORMING LAB: [address] [id number] Result Comment: July 27, 2025 2:56:00 AM UTC Test performed by: [id number] ; Instrument: [id number] Final Result Date: July 27, 2025 2:56:00 AM UTC LOINC TEST FLAG RESULT [place] [address]-0 Glucose [Mass/volume] in Capillary blood by Glucometer H 301 mg/dl 70 mg/dl - 105 mg/dl July 27, 2025 2:56:00 AM UT ORDER 7400: GLUCOSE BEDSIDE TESTING (LOINC: 04910-9) ORDER DATE: July 27, 2025 12:00:00 PM UTC Specimen Source: WHOLE BLOOD Specimen Type: Whole blood s ample PERFORMING LAB: [address] [id number] Result Comment: July 27, 2025 12:04:00 PM UTC Test performed by: [id number] ; Instrument: [id number] Final Result Date: July 27, 2025 12:04:00 PM UTC LOINC TEST FLAG RESULT [place] [address]-0 Glucose [Mass/volume] in Capillary blood by Glucometer H 263 mg/dl 70 mg/dl - 105 mg/dl July 27, 2025 12:04:00 PM UTC ORDER 8200: BASIC METABOLIC PANEL (LOINC: 46166-6) ORDER DATE: July 27, 2025 6:34:00 PM UTC Specimen Source: PLASMA Specimen Type: Plasma specim en PERFORMING LAB: [address] [id number] Result Comment: Final Result Date: July 28, 2025 11:25:00 AM UTC (TECH: 2) LOINC TEST FLAG RESULT REFERENCE RANGE UPDA MYRIAM BY 2951-2 Sodium [Moles/volume] in Serum or Plasma N 136 mmol/L 136 mmol/L - 145 mmol/L July 28, 2025 11:25:00 AM UTC (TECH: 2) 2823-3 Potassium [Moles/volume] in Serum or Plasma N 3.9 mmol/L 3.6 mmol/L - 5.0 mmol/L July 28, 2025 11:25:00 AM UT (TECH: [employer]) 2074-0 Chloride [Moles/volume] in Serum or Plasma L 96 mmol/L 98 mmol/L - 107 mmol/L July 28, 2025 11:25:00 AM UT (TECH: [employer]) 2028-05 Carbon dioxide, total [Moles/volume] in Serum or Plasma N 25.2 mmol/L 21.0 mmol/L - 32.0 mmol/L July 28, 2025 11:25:00 AM UT (TECH: [employer]) 98651-5 Anion gap in Blood N 18.7 N ov2024 11:25:00 AM [facility] (TECH: [employer]) 8655-7 Glucose [Mass/volume] in Serum or Plasma H 245 mg/dl 70 mg/dl - 120 mg/dl July 28, 2025 11:25:00 AM [facility] (TECH: [employer]) 6299-2 Urea nitrogen [Mass/volume] in Blood H 60 mg/dL 7 mg/dL - 18 mg/dL July 28, 2025 11:25:00 AM [facility] (TECH: [employer]) 78578-3 Creatinine [Moles/volume] in Blood H 2.9 mg/dL 0.6 mg/dL - 1.3 mg/dL July 28, 2025 11:25:00 AM [facility] (TECH: [employer]) 90393-7 Glomerular filtration rate/1.73 sq M.predicted by Creatinine-based formula (MDRD) L 18 mlpermin 60 mlpermin July 28, 2025 11:25:00 AM [facility] (TECH: [employer]) 03033-4 Osmolality of Serum or Plasma by calculated by sum of electrolytes H 308 mosm/kg 275 mosm/kg - 301 mosm/kg July 28, 2025 11:25:00 AM [facility] (TECH: [employer]) 23914-3 Calcium [Mass/volume] in Serum or Plasma L 8.3 mg/dl 8.5 mg/dl - 10.5 mg/dl July 28, 2025 11:25:00 AM [facility] (TECH: [employer]) ORDER 8300: CBC NO DIFF HEMO GRAM (LOINC: 24760-6) ORDER DATE: July 27, 2025 6:34:00 PM UTC Specimen Source: EDTA Specimen Type: Blood specime n with EDTA PERFORMING LAB: [place] [address] [facility] [id number] Result Comment: Final Result Date: July 28, 2025 11:32:00 AM UTC (TECH: [employer]) LOINC TEST FLAG RESULT REFERENCE RANGE UPDA MYRIAM BY 6690-2 Leukocytes [#/volume ] in Blood by Automated count N 7.7 K/ul 4.0 K/ul - 10.5 K/ul July 28, 2025 11:32:00 AM UTC (TECH: [employer]) 789-8 Erythrocytes [#/volume] in Blood by Automated count L 3.3 M/mm3 4.2 M/mm3 - 6.4 M/mm3 July 28, 2025 11:32:00 AM UTC (TECH: [employer]) 718-7 Hemoglobin [Mass/volume] in Blood L 9.5 gm/dl 12.5 gm/dl - 16.0 gm/dl July 28, 2025 11:32:00 AM UTC (TECH: [employer]) 06102-1 Hematocrit [Volume Fraction] of Blood L 31.5 % 37.0 % - 47.0 % July 28, 2025 11:32:00 AM UTC (TECH: [employer]) 787-2 Erythrocyte mean corpuscular volume [Entitic volume] by Automated count N 96.9 fl 78 fl - 100 fl July 28, 2025 11:32:00 AM UTC (TECH: [employer]) 785-6 Erythrocyte mean corpuscular hemoglobin [Entitic mass] by Automated count N 29.2 pg 27 pg - 31 pg July 28, 2025 11:32:00 AM UTC (TECH: [employer]) 786-4 Erythrocyte mean corpuscular hemoglobin concentration [Mass/volume] by Automated count L 30.2 g/dl 32 g/dl - 36 g/dl July 28, 2025 11:32:00 AM UTC (TECH: [employer]) 80107-9 Erythrocyte distribution width [Ratio] H 17.9 % 11.5 % - 14.0 % July 28, 2025 11:32:00 AM UTC (TECH: MH2) 777-3 Platelets [#/volume] in Blood by Automated count L 67 K/ul 150 K/ul - 450 K/ul July 28, 2025 11:32:00 AM [place] (TECH: 2) 45943-9 Platelet mean volume [Entitic volume] in Blood by Automated count H 11.8 fl 6 fl - 9.5 fl July 28, 2025 11:32:00 AM UT (TECH: 2) 37365-8 Manual Differential panel - Blood N NO July 28, 2025 11:32:00 AM UT (TECH: 2) ORDER 8400: MAGNESIUM (LOINC : 08166-5) ORDER DATE: July 27, 2025 6:34:00 PM UTC Specimen Source: PLASMA Specimen Type: Plasma specim en PERFORMING LAB: [address] [id number] Result Comment: Final Result Date: July 28, 2025 11:25:00 AM [facility] (TECH: 2) LOINC TEST FLAG RESULT [place] [address]-0 Magnesium [Mass/volume] in Serum or Plasma N 1.9 MG/DL 1.8 MG/DL - 2.4 MG/DL July 28, 2025 11:25:00 AM UT (TECH: 2) ORDER 8800: GLUCOSE BEDSIDE TESTING (LOINC: 84314-1) ORDER DATE: July 27, 2025 11:28:00 PM UT Specimen Source: WHOLE BLOOD Specimen Type: Whole blood s lissette PERFORMING LAB: [address] [id number] Result Comment: July 28, 2025 1:50:00 AM UT Test performed by: [id number] ; Instrument: [id number] Final Result Date: July 28, 2025 1:50:00 AM UT LOINC TEST FLAG RESULT [place] [address]-4 Glucose [Mass/volume] in Capillary blood by Glucometer H 304 mg/dl 70 mg/dl - 105 mg/dl July 28, 2025 1:50:00 AM UT ORDER 8900: GLUCOSE BEDSIDE TESTING (LOINC: 47220-3) ORDER DATE: July 28, 2025 1:43:00 AM UT Specimen Source: WHOLE BLOOD Specimen Type: Whole blood s ample PERFORMING LAB: [place] [id number] Result Comment: July 28, 2025 1:50:00 AM UTC Test performed by: [id number] ; Instrument: [id number] Final Result Date: July 28, 2025 1:50:00 AM UTC LOINC TEST FLAG RESULT [place] [address]-9 Glucose [Mass/volume] in Capillary blood by Glucometer H 360 mg/dl 70 mg/dl - 105 mg/dl July 28, 2025 1:50:00 AM UTC ORDER 9000: GLUCOSE BEDSIDE TESTING (LOINC: 14089-8) ORDER DATE: July 28, 2025 3:06:00 AM UTC Specimen Source: WHOLE BLOOD Specimen Type: Whole blood s ample PERFORMING LAB: [address] [id number] Result Comment: July 28, 2025 3:27:00 AM UTC Test performed by: [id number] ; Instrument: [id number] Final Result Date: July 28, 2025 3:27:00 AM UTC LOINC TEST FLAG RESULT [place] [address]-5 Glucose [Mass/volume] in Capillary blood by Glucometer H 383 mg/dl 70 mg/dl - 105 mg/dl July 28, 2025 3:27:00 AM UTC ORDER 9400: GLUCOSE BEDSIDE TESTING (LOINC: 38554-9) ORDER DATE: July 28, 2025 4:47:00 AM UTC Specimen Source: WHOLE BLOOD Specimen Type: Whole blood s ample PERFORMING LAB: [address] [id number] Result Comment: July 28, 2025 4:56:00 AM UTC Test performed by: [id number] ; Instrument: [id number] Final Result Date: July 28, 2025 4:56:00 AM UTC LOINC TEST FLAG RESULT [place] [address]-0 Glucose [Mass/volume] in Capillary blood by Glucometer H 337 mg/dl 70 mg/dl - 105 mg/dl July 28, 2025 4:56:00 AM UTC ORDER 9900: GLUCOSE BEDSIDE TESTING (LOINC: 95032-6) ORDER DATE: July 28, 2025 11:46:00 AM UTC Specimen Source: WHOLE BLOOD Specimen Type: Whole blood s lissette PERFORMING LAB: [address] [id number] Result Comment: July 28, 2025 11:47:00 AM UTC Test performed by: [id number] ; Instrument: [id number] Final Result Date: July 28, 2025 11:47:00 AM UTC LOINC TEST FLAG RESULT [place] [address]-8 Glucose [Mass/volume] in Capillary blood by Glucometer H 212 mg/dl 70 mg/dl - 105 mg/dl July 28, 2025 11:47:00 AM UTC ORDER 30007: GLUCOSE BEDSIDE TESTING (LOINC: 90134-3) ORDER DATE: July 28, 2025 4:30:00 PM UTC Specimen Source: WHOLE BLOOD Specimen Type: Whole blood s lissette PERFORMING LAB: [address] [id number] Result Comment: July 28, 2025 8:11:00 PM UTC Test performed by: [id number] ; Instrument: [id number] Final Result Date: July 28, 2025 8:11:00 PM UTC LOINC TEST FLAG RESULT [place] [address]-9 Glucose [Mass/volume ] in Capillary blood by Glucometer H 150 mg/dl 70 mg/dl - 105 mg/dl July 28, 2025 8:11:00 PM [facility] LAB[facility]ATORY NARRATIVE RESULTS Information is not available RADIOLOGY RESULTS ORDER 100: CHEST PORTABLE (L OINC: 08683-2) ORDER DATE: July 25, 2025 3:43:00 PM UTC PERFORMING LAB: [address] [id number] Final Result Date: July 25, 2025 6:18:08 PM UTC [facility] l [address] [place] [id number] Name: NASH LLANOS Exam Date: 07/25/2025 : 1970 Age 55 years Gender: F Physician: HEIDI MCADAMS Facility: [facility] Facility HSV: Inpatient Exam: CHEST PORTABLE XR CHEST 1 VIEW PORTABLE Reason For Study: Shortness of breath COMPARISON:07/23/2025 TECHNIQUE An AP portable view of the chest was obtained. FINDINGS Status post median sternotomy. Atherosclerotic aorta. New complete opacification of the left lung with mild mediastinal shift to the left suggesting underlying atelectasis/pneumonia combined with pleural fluid. Some improvement in the infiltrate in the right lung with improved aeration of the right upper lobe. Continued pneumonia in the right base. IMPRESSION: New complete opacification of the left lung with mild mediastinal shift to the left suggesting underlying atelectasis/pneumonia combined with pleural fluid. Electronically signed by: Dajuan Zee MD 07/25/2025 01:18 PM [facility] Dictated By: Dajuan Zee Transcribed By: Transcribed On: 07/25/2025 1:18 PM Electronically signed by: Dajuan Zee 07/25/2025 Thank you for referring NASH LLANOS to [facility]. Legally authenticated by EDMUNDO TORRES 2025-07-25 13:18:08 ORDER [id number]: CHEST PORTABLE ( LOINC: 01012-2) ORDER DATE: July 26, 2025 5:01:00 AM [facility] PERFORMING LAB: [address] [id number] Final Result Date: July 26, 2025 9:09:41 AM [place] [id number] Name: NASH LLANOS Exam Date: 07/26/2025 : 1970 Age 55 years Gender: F Physician: PEDRITO VO Facility: [facility] Facility HSV: Inpatient Exam: CHEST PORTABLE EXAMINATION: ONE VIEW CHEST XR CLINICAL INDICATION: Female, 55 years old. sob. TECHNIQUE: 1 View, AP supine, X-ray of the chest was performed. [id number]. COMPARISON: July 25, 2025 FINDINGS: A relatively small area of long in the upper thorax has become aerated. There is a large left pleural effusion with adjacent atelectasis and/or infiltrate again noted. There is multifocal pneumonic infiltrate on the right which is not clearly changed. There is a small right pleural effusion suggested as well. IMPRESSION: Reaeration of a small portion of the left upper lung. Left pleural effusion with adjacent atelectasis and/or infiltrate. Right-sided pneumonia and small pleural effusion as before. Electronically signed by: Jose M Horne MD 07/26/2025 04:09 AM EST RP Dictated By: JOSE M HORNE Transcribed By: Transcribed On: 07/26/2025 4:09 AM Electronically signed by: JOSE M HORNE 07/26/2025 Thank you for referring NASH LLANOS to [facility]. Legally authenticated by COLEEN COE 2025-07-26 04:09:41 ORDER 5000: CHEST PORTABLE ( LOINC: 29335-3) ORDER DATE: July 26, 2025 5:44:00 AM [facility] PERFORMING LAB: [address] [id number] Final Result Date: July 26, 2025 9:14:20 AM [facility] [address] [place], [place] [address] Name: NASH LLANOS Exam Date: 07/26/2025 : 1970 Age 55 years Gender: F Physician: PEDRITO VO Facility: [facility] Facility HSV: Inpatient Exam: CHEST PORTABLE EXAMINATION: ONE VIEW CHEST XR CLINICAL INDICATION: Female, 55 years old. post thoracentesis. TECHNIQUE: 1 View, AP supine, X-ray of the chest was performed. [id number]. COMPARISON: July 25, 2025 FINDINGS: Mildly diminished volume of pleural effusion on the left post thoracentesis. No visible pneumothorax. There is persistent infiltrate and or atelectasis on the left. Right-sided pneumonia and pleural effusion are not clearly changed. IMPRESSION: Mildly diminished volume of left pleural effusion with no pneumothorax. Persistence of left-sided infiltrate and or atelectasis. Unchanged right-sided pneumonia with small pleural effusion. Electronically signed by: Jose M Horne MD 07/26/2025 04:14 AM EST RP Dictated By: JOSE M HORNE Transcribed By: Transcribed On: 07/26/2025 4:14 AM Electronically signed by: JOSE M HORNE 07/26/2025 Thank you for referring NASH LLANOS to [facility]. Legally authenticated by COLEEN COE 2025-07-26 04:14:20 ORDER [id number]: CHEST ULTRASOUND (LOINC: 38040-6) ORDER DATE: July 26, 2025 4:18:00 PM [facility] PERFORMING LAB: [address] [id number] Final Result Date: July 26, 2025 4:46:[address] [address] Name: NASH LLANOS Exam Date: 07/26/2025 : 1970 Age 55 years Gender: F Physician: HEIDI MCADAMS Facility: [facility] Facility HSV: Inpatient Exam: CHEST ULTRASOUND Procedure: US CHEST Exam Date: 07/26/2025 10:35 AM [employer] Indication: effusion Comparison: None Technique: Sonographic images of the left lung base was performed with the production of real time B-mode two-dimensional structural images. Color Doppler flow was used as needed. FINDINGS/ IMPRESSION: Trace fluid at the left lung base post thoracentesis. Electronically signed by: Rola Liu MD 07/26/2025 11:46 AM EST RP Dictated By: Rola Liu Transcribed By: Transcribed On: 07/26/2025 11:46 AM Electronically signed by: Rola Liu 07/26/2025 Thank you for referring NASH LLANOS to [facility]. Legally authenticated by MICHAEL SERRANO 2025-07-26 11:46:59 PATHOLOGY NARRATIVE RESULTS Information is not available MICROBIOLOGY RESULTS No Micro Labs/Results Exist for Patient BLOOD ADMIN RESULTS Information is not available TREATMENT PLAN DISCHARGE MEDICATIONS Status RXNORM Medication Dose Route Frequency Dates Comments U pdated By Continued [id number] Percocet Oral Tablet 10-325 MG 1 TAB ORAL EVERY SIX HOURS NEEDED Prescribe d: July 28, 2025 3:59:13 PM [facility] [id number] on July 28, 2025 3:59:13 PM [facility] Continued 474312 Aspirin 81 Oral Tablet Chewable 81 MG 1 TAB ORAL ONCE DAILY Prescribe d: July 28, 2025 3:59:13 PM [facility] [id number] on July 28, 2025 3:59:13 PM [facility] Continued 749619 Carvedilol Oral Tablet 25 MG 1 TAB ORAL ONCE DAILY Prescribe d: July 28, 2025 3:59:13 PM [facility] [id number] on July 28, 2025 3:59:13 PM [facility] Continued 270831 hydrALAZINE HCl Oral Tablet 50 MG 1 TAB ORAL ONCE DAILY Prescribe d: July 28, 2025 3:59:13 PM [id number] on July 28, 2025 3:59:13 PM [facility] Continued 568730 Ezetimibe Oral Tablet 10 MG 1 TAB ORAL ONCE DAILY Prescribe d: July 28, 2025 3:59:13 PM [facility] [id number] on July 28, 2025 3:59:13 PM [facility] Continued 643924 Isosorbide Mononitrate ER Oral Tablet Extended Release 24 Hour 60 MG 1 TAB ORAL ONCE DAILY Prescribe d: July 28, 2025 3:59:13 PM [facility] [id number] on July 28, 2025 3:59:13 PM [facility] Continued 6432787 Albuterol Sulfate HFA Inhalation Aerosol Solution 108 (90 Base) MCG/ACT 2 PUF INHALED NEEDED Prescribe d: July 28, 2025 3:59:13 PM [facility] [id number] on July 28, 2025 3:59:13 PM [facility] Continued 847112 Clopidogrel Bisulfate Oral Tablet 75 MG 1 TAB ORAL ONCE DAILY Prescribe d: July 28, 2025 3:59:13 PM [facility] [id number] on July 28, 2025 3:59:13 PM [facility] Continued 161004 Pantoprazole Sodium Oral Tablet Delayed Release 20 MG 1 TAB ORAL ONCE DAILY Prescribe d: July 28, 2025 3:59:13 PM [facility] [id number] on July 28, 2025 3:59:13 PM [facility] Continued 254213 predniSONE (DELTASONE) 20 MG ORAL ONCE DAILY Prescribe d: July 28, 2025 4:10:17 PM UT [id number] on July 28, 2025 4:10:17 PM UT Continued 523003 levothyroxine (SYNTHROID) 100 MCG ORAL BEFORE BREAKFAST Prescribe d: July 28, 2025 4:10:17 PM UT [id number] on July 28, 2025 4:10:17 PM UT Continued 576628 Amoxicillin-Po t Clavulanate Oral Tablet 500-125 MG 1 TAB ORAL TWICE A DAY Prescribe d: July 28, 2025 4:10:17 PM UT [id number] on July 28, 2025 4:10:17 PM UT Continued [id number] NIFEdipine ER (PROCARDIA XL) 90 MG ORAL ONCE EVERY EVENING Prescribe d: July 28, 2025 4:10:17 PM UT [id number] on July 28, 2025 4:10:17 PM UT PATIENT OPEN ORDERS Code System Descripti on Frequency Occurrenc es Priority Category Start Date Ordering Physicia n Updated By 600-7 [facility] Bacteria identifie d in Blood by Culture ONE TIME 0 Stat July 25, 2025 4:33:00 PM [facility] PEMAEUGENIA Johnson [id number] on July 25, 2025 5:00:00 AM [facility] 600-7 [facility] Bacteria identifie d in Blood by Culture ONE TIME 0 Stat July 25, 2025 4:33:00 PM [facility] PEMA Johnson [id number] on July 25, 2025 6:25:00 PM [facility] 6460-0 [facility] Bacteria identifie d in Sputum by Culture ONE TIME 0 Routine July 25, 2025 4:37:00 PM [facility] PEMA Johnson [id number] on July 25, 2025 4:40:00 PM [facility] 33045-7 [facility] Guidance for removal of fluid from Chest ONE TIME 0 Routine July 25, 2025 10:23:00 PM [facility] PEMA Johnson [id number] on July 25, 2025 10:23:00 PM [facility] SCHEDULED PROCEDURES Code System Description Status Scheduled Date Upd ated By Patient scheduled procedure information is not available. HOSPITAL COURSE HOSPITAL COURSE Note Title Discharge Summary Date Of Service July 28, 2025 9:0 1:53 PM UT Created By [id number] on July 28, 2025 9:01:53 PM [facility] Signed By [id number] on July 28, 2025 9:06:54 PM [facility] Acute on chronic hypoxemic a nd hypercapnic respiratory failureLeft sided pleural effusion and atelectasis with L lung whiteoutL sided pneumoniaRespiratory acidosis-07/26:&Acirc; Thoracentesis done overnight, 500 cc of fluid removed.&Acirc; Discussed with Interventional Radiology, lung ultrasound performed with no real fluid to drain.&Acirc; Discussed with pulmonology, not a good candidate for bronchoscopy at this time due to high oxygen demands and patient preference to avoid intubation.&Acirc; Continue renally dosed Zosyn and linezolid.&Acirc; -07/27: Continue to wean O2 to home baseline. Continue abx therapy. Can transfer out of the icu07/28:&Acirc; Patient's oxygen saturation was back to baseline.&Acirc; She denied any shortness a breath, chest pain.&Acirc; She was discharged on Augmentin with renal dosing to complete her antibiotic therapy and prednisone.&Acirc; We had a lengthy discussion regarding her goals of care and a referral to hospice/palliative care was provided.ESRD on HD TTSHer dialysis schedule was continued during her inpatient. She is to follow up with Nephrology.&Acirc; Hypothyroidism- TSH&Acirc; 22.8, free T4&Acirc; 3.3- 07/26: Synthroid increased to 100 mcg daily from 75 mcgDuring admission the patient refused BiPAP, and intubation.&Acirc; I discussed with her that given the significance of her lung disease she may need these interventions interventions in the future and if she wishes not to pursue aggressive treatment she should consider hospice or palliative care status.&Acirc; Patient was in agreement with this plan and a referral to hospice care was provided. MEDICATIONS HOME MEDICATIONS Status RXNORM [facility] Medication Dose Route Frequency Dates Comments Reported By Updated By Active 36904 66276 1 Aspirin 81 Oral Tablet Chewable 81 MG 1.0 TAB ORAL DAILY Last Dose: [id number] on July 25, 2025 3:45:17 PM [facility] Active 725700 00707 56247 2 Clopidogrel Bisulfate Oral Tablet 75 MG 1.0 TAB ORAL DAILY Last Dose: [id number] on July 26, 2025 7:28:55 PM [facility] Active 983293 60496 79428 5 Ezetimibe Oral Tablet 10 MG 1.0 TAB ORAL DAILY Last Dose: [id number] on July 25, 2025 3:46:28 PM [facility] Active 395597 86318 50463 1 Isosorbide Mononitrate ER Oral Tablet Extended Release 24 Hour 60 MG 1.0 TAB ORAL DAILY Last Dose: [id number] on July 25, 2025 3:47:26 PM [place] Active 209524 63882 53351 4 Levothyroxin e Sodium Oral Capsule 75 MCG 1.0 TAB ORAL DAILY Last Dose: [id number] on July 26, 2025 7:28:55 PM [facility] Active 028380 75859 49658 0 Pantoprazole Sodium Oral Tablet Delayed Release 20 MG 1.0 TAB ORAL DAILY Last Dose: [id number] on July 25, 2025 3:49:04 PM [facility] Active 238467 86283 00380 1 hydrALAZINE HCl Oral Tablet 50 MG 1.0 TAB ORAL DAILY Last Dose: [id number] on July 25, 2025 3:50:22 PM [facility] Active 950687 81545 05466 1 Carvedilol Oral Tablet 25 MG 1.0 TAB ORAL DAILY Last Dose: [id number] on July 25, 2025 3:52:23 PM [facility] Active 6786454 01246 52694 8 Albuterol Sulfate HFA Inhalation Aerosol Solution 108 (90 Base) MCG/ACT 2.0 PUF INHALA TION PRN Last Dose: [id number] on July 28, 2025 3:54:14 PM [facility] Active 8367130 51500 67748 0 Percocet Oral Tablet 10-325 MG 1.0 TAB ORAL Q6HPRN Last Dose: [id number] on July 25, 2025 3:55:11 PM [facility] DISCHARGE MEDICATIONS Status RXNORM [facility] Medication Dose Route Frequency Dates Dis pense Data Comments Physician Updated By Continu ed [id number] 0664 0602 180 Percocet Oral Tablet 10-325 MG 1.0 TAB ORAL EVERY SIX HOURS NEEDED Prescr ibed: Lisbethb er 2024 3:59:1 3 PM UT EVITA MCNEILL PHY [id number] on July 28, 2025 3:59:13 PM [facility] Continu ed 972659 3165 7084 381 Aspirin 81 Oral Tablet Chewable 81 MG 1.0 TAB ORAL ONCE DAILY Prescr ibed: [facility] 2024 3:59:1 3 PM UT RAYNAROBERT MCNEILL PHY [id number] on July 28, 2025 3:59:13 PM [facility] Continu ed 482900 0202 2009 501 Carvedilol Oral Tablet 25 MG 1.0 TAB ORAL ONCE DAILY Prescr ibed: [facility] 2024 3:59:1 3 PM [place] RAYNAROBERT MCNEILL PHY [id number] on July 28, 2025 3:59:13 PM [facility] Continu ed 644106 4557 1032 801 hydrALAZINE HCl Oral Tablet 50 MG 1.0 TAB ORAL ONCE DAILY Prescr ibed: [facility] 2024 3:59:1 3 PM [place] RAYNAROBERT MCNEILL PHY [id number] on July 28, 2025 3:59:13 PM [facility] [place] 331129 4164 1569 005 Ezetimibe Oral Tablet 10 MG 1.0 TAB ORAL ONCE DAILY Prescr ibed: [facility] 2024 3:59:1 3 PM [place] RAYNAROBERT MCNEILL PHY [id number] on July 28, 2025 3:59:13 PM [facility] Continu ed 862086 1394 8010 501 Isosorbide Mononitrate ER Oral Tablet Extended Release 24 Hour 60 MG 1.0 TAB ORAL ONCE DAILY Prescr ibed: [facility] 2024 3:59:1 3 PM UT EVITA MCNEILL PHY [id number] on July 28, 2025 3:59:13 PM [facility] Continu ed 9436803 6699 3001 968 Albuterol Sulfate HFA Inhalation Aerosol Solution 108 (90 Base) MCG/ACT 2.0 PUF INHALE D NEEDED Prescr ibed: [facility] 2024 3:59:1 3 PM [place] EVITA MCNEILL PHY [id number] on July 28, 2025 3:59:13 PM [facility] Continu ed 013240 2016 5025 302 Clopidogrel Bisulfate Oral Tablet 75 MG 1.0 TAB ORAL ONCE DAILY Prescr ibed: [facility] 2024 3:59:1 3 PM [place] EVITA MCNEILL PHY [id number] on July 28, 2025 3:59:13 PM [facility] ed [id number] 6401 0063 960 Pantoprazol e Sodium Oral Tablet Delayed Release 20 MG 1.0 TAB ORAL ONCE DAILY Prescr ibed: [facility] 2024 3:59:1 3 PM [facility] [id number] on July 28, 2025 3:59:13 PM [facility] Continu ed 018206 1755 4001 820 predniSONE (DELTASONE) 20.0 MG ORAL ONCE DAILY Prescr ibed: [facility] 2024 4:10:1 7 PM [facility] PHY [id number] on July 28, 2025 4:10:17 PM [facility] Continu ed 373441 5785 4662 490 levothyroxi ne (SYNTHROID) 100.0 MCG ORAL BEFORE BREAKFAST Prescr ibed: [facility] 2024 4:10:1 7 PM [facility] PHY [id number] on July 28, 2025 4:10:17 PM [facility] ed 668015 5681 1183 120 Amoxicillin -Pot Clavulanate Oral Tablet 500-125 MG 1.0 TAB ORAL TWICE A DAY Prescr ibed: [facility] 2024 4:10:1 7 PM [facility] PHY [id number] on July 28, 2025 4:10:17 PM [facility] ed [id number] 7919 4059 701 NIFEdipine ER (PROCARDIA XL) 90.0 MG ORAL ONCE EVERY EVENING Prescr ibed: [facility] 2024 4:10:1 7 PM [facility] PH[facility] [id number] on July 28, 2025 4:10:17 PM [facility] INPATIENT MEDICATIONS Status RXNORM [facility] Medication Dose Route Frequency Rat e Quantity Dates Indication Dispense Data Comments Physician Updated By Jill inued 7466 0442 909 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 SWAB 1.0 EA NASAL TWICE A DAY Start: [facility] 2024 2:00:0 0 AM [facility] End: [facility] 2024 4:10:1 7 PM [facility] PEMA Johnson [id number] on July 25, 2025 4:39:00 PM [facility] Jill inued 3212 8199 766 sodium chloride 0.9% FLUSH 10 ML SOLN 10.0 ML INTRAV ENOUS NEEDED Start: [facility] 2024 4:37:0 0 PM UTC End: [facility] 2024 4:10:1 7 PM UTC PEMA Johnson [id number] on July 25, 2025 4:39:00 PM UTC Discont inued 8697054 9647 5613 000 ondansetron (ZOFRAN) INJ 4 MG/2 ML SOLN 4.0 MG INTRAV ENOUS EVERY SIX HOURS NEEDED Start: [facility] 2024 4:37:0 0 PM UTC End: [facility] 2024 4:10:1 7 PM UTC PEMA Johnson [id number] on July 25, 2025 4:39:00 PM UTC Discont inued 772672 5575 3061 401 hydrALAZINE (APRESOLINE ) 20 MG/ML SOLN 10.0 MG INTRAV ENOUS EVERY SIX HOURS NEEDED Start: [facility] 2024 4:37:0 0 PM UTC End: [facility] 2024 4:10:1 7 PM UTC PEMA Johnson [id number] on July 25, 2025 4:39:00 PM UTC Discont inued 353152 8775 8071 011 PANTOPRAZOL E SODIUM 40 MG SOLR 40.0 MG INTRAV ENOUS ONCE DAILY Start: [facility] 2024 2:00:0 0 PM UTC End: [facility] 2024 1:59:0 2 PM UTC PEMA Johnson [id number] on July 27, 2025 1:59:00 PM UTC Discont inued 2878082 7684 2879 959 insulin lispro (HumaLOG) PEN 100 UNIT/ML SOPN 1.0 UNT SUBCUT ANEOUS SLIDING SCALE NEEDED Start: [facility] 2024 4:37:0 0 PM UTC End: [facility] 2024 4:10:1 7 PM UTC PEMA Johnson [id number] on July 25, 2025 4:39:00 PM UTC Discont inued 6956478 2054 2264 201 dextrose 50% SYRINGE (25 GM) SOLN 25.0 ML INTRAV ENOUS NEEDED Start: [facility] 2024 4:37:0 0 PM UTC End: [facility] 2024 4:10:1 7 PM UTC PEMA Johnson [id number] on July 25, 2025 4:39:00 PM UTC Discont inued 0090 4673 061 acetaminoph en (TYLENOL) 500 MG TABS 1000. 0 MG ORAL EVERY EIGHT HOURS NEEDED Start: [facility] 2024 4:37:0 0 PM UTC End: [facility] 2024 4:10:1 7 PM UTC PEMA HEIDI Johnson [id number] on July 25, 2025 4:39:00 PM UTC Discont inued 133259 0275 7039 601 NORCO 5-325 MG TABS 1.0 TAB ORAL EVERY SIX HOURS NEEDED Start: [facility] 2024 4:37:0 0 PM UTC End: [facility] 2024 4:10:1 7 PM UTC PEMA HEIDI Alex [id number] on July 25, 2025 4:39:00 PM UTC Discont inued 9842384 7604 5000 411 morphine sulfate (PF) 2 MG/ML SOLN 2.0 MG INTRAV ENOUS EVERY FOUR HOURS NEEDED Start: [facility] 2024 4:37:0 0 PM UTC End: [facility] 2024 8:14:4 7 AM UTC PEMA Johnson [id number] on July 26, 2025 8:14:00 AM UTC Discont inued 383759 8626 6589 688 nicotine (NICODERM) 21 MG/24 HR PT24 21.0 MG TRANSD ERMAL EVERY 24 HOURS Start: [facility] 2024 4:37:0 0 PM UTC End: [facility] 2024 6:31:2 6 PM UTC PEMA Johnson [id number] on July 25, 2025 6:31:00 PM UTC Discont inued 5438146 7490 7020 101 DUONEB 0.5-2.5 MG/3 ML SOLN 3.0 ML INHALE D EVERY SIX HOURS (RESPIRATO RY) Start: [facility] 2024 7:00:0 0 PM UTC End: [facility] 2024 4:10:1 7 PM UTC PEMA Johnson [id number] on July 25, 2025 4:39:00 PM UTC Discont inued 386065 4804 8015 745 melatonin 5 MG TABS 5.0 MG ORAL AT BEDTIME NEEDED Start: [facility] 2024 2:00:0 0 AM UTC End: [facility] 2024 4:10:1 7 PM UTC PEMA Johnson [id number] on July 25, 2025 4:39:00 PM UTC Discont inued 8895327 0768 7043 198 MIRALAX PACKET 17 GM PACK 17.0 GM ORAL ONCE DAILY NEEDED Start: [facility] 2024 4:37:0 0 PM UTC End: [facility] 2024 4:10:1 7 PM UTC PEMA Johnson [id number] on July 25, 2025 4:39:00 PM UTC Discont inued 4780421 6957 3026 201 heparin sodium (PORCINE) 5000 UNIT/ML SOLN 5000. 0 UNT SUBCUT ANEOUS EVERY TWELVE HOURS Start: [facility] 2024 4:37:0 0 PM UTC End: [facility] 2024 7:17:4 3 PM UTC PEMA Johnson [id number] on July 25, 2025 7:17:00 PM UTC Discont inued 0322988 1788 0011 930 piperacilli n-tazobacta m(ZOSYN) 2.25 GM SOLR 2.25 GM INTRAV ENOUS EVERY SIX HOURS 100.0 ML/HR Start: [facility] 2024 4:51:0 0 PM UTC End: [facility] 2024 6:45:3 9 PM UTC PEMAJOSH HAMIN Alex [id number] on July 25, 2025 6:45:00 PM UTC Discont inued 1284117 0033 8004 941 sodium chloride 0.9% SOLN 50.0 ML INTRAV ENOUS EVERY SIX HOURS 100.0 ML/HR Start: [facility] 2024 4:51:0 0 PM UTC End: [facility] 2024 6:45:3 9 PM UTC PEMA HEIDI M [id number] on July 25, 2025 6:45:00 PM UTC Discont inued 7159838 7162 0011 930 piperacilli n-tazobacta m(ZOSYN) 2.25 GM SOLR 2.25 GM INTRAV ENOUS EVERY SIX HOURS 100.0 ML/HR Start: [facility] 2024 12:30: 00 AM UTC End: [facility] 2024 4:10:1 7 PM UT PEMA Johnson [id number] on July 25, 2025 6:45:00 PM UTC Discont inued 9836955 0033 8004 941 sodium chloride 0.9% SOLN 50.0 ML INTRAV ENOUS EVERY SIX HOURS 100.0 ML/HR Start: [facility] 2024 12:30: 00 AM UTC End: [facility] 2024 4:10:1 7 PM UTC PEMA Johnson [id number] on July 25, 2025 6:45:00 PM UTC Discont inued 6655435 6356 9189 001 morphine sulfate (PF) CJ 2 MG/ML SOLN 2.0 MG INTRAV ENOUS ONE TIME ONLY (SCHEDULED DOSE) Start: [facility] 2024 12:01: 00 AM UTC End: [facility] 2024 12:01: 00 AM UT PEMA Johnson [facility] on July 25, 2025 11:59:00 PM UTC Discont inued 1758233 2162 3025 803 methylPREDN ISolone sod succ 125 MG SOLR 125.0 MG INTRAV ENOUS ONCE DAILY Start: [facility] 2024 1:19:0 0 AM UTC End: [facility] 2024 1:43:1 1 PM UTC TERESA FIORE [id number] on July 27, 2025 1:43:00 PM UTC Discont inued 2736032 2110 0024 251 linezolid (ZYVOX) 600 MG/300 ML SOLN 600.0 MG INTRAV ENOUS EVERY TWELVE HOURS 150.0 ML/HR Start: [facility] 2024 3:20:0 0 AM UTC End: [facility] 2024 3:28:1 8 AM UT PEMA Johnson [id number] on July 26, 2025 3:28:00 AM UTC Discont inued 8573845 2643 0024 251 linezolid (ZYVOX) 600 MG/300 ML SOLN 600.0 MG INTRAV ENOUS EVERY TWELVE HOURS 150.0 ML/HR Start: [facility] 2024 4:00:0 0 AM UTC End: [facility] 2024 4:10:1 7 PM UTC PEMA HEIDI Johnson [id number] on July 26, 2025 3:28:00 AM UTC Discont inued 1456555 8711 9189 001 morphine sulfate (PF) CJ 2 MG/ML SOLN 2.0 MG INTRAV ENOUS ONE TIME ONLY (SCHEDULED DOSE) Start: [facility] 2024 4:46:0 0 AM UTC End: [facility] 2024 4:46:0 0 AM UTC PEMA [facility] on July 26, 2025 4:44:00 AM UTC Discont inued 4850317 7604 5000 411 morphine sulfate (PF) 2 MG/ML SOLN 2.0 MG INTRAV ENOUS EVERY THREE HOURS NEEDED Start: [facility] 2024 8:14:0 0 AM UTC End: [facility] 2024 4:10:1 7 PM UTC TAVO Aviles [id number] on July 26, 2025 8:14:00 AM UTC Discont inued 4364935 0038 9189 001 morphine sulfate (PF) CJ 2 MG/ML SOLN 2.0 MG INTRAV ENOUS ONE TIME ONLY (SCHEDULED DOSE) Start: [facility] 2024 8:15:0 0 AM UTC End: [facility]2024 8:15:0 0 AM UTC PEMA [facility] on July 26, 2025 8:13:00 AM UTC Discont inued Free Text Med hydrALAZINE HCl Oral Tablet 50 MG 1.0 TAB ORAL ONCE DAILY Start: [facility]2024 2:00:0 0 PM UTC End: [facility] 2024 2:00:0 0 PM UTC PEMAEUGENIA Johnson [id number] on July 26, 2025 7:37:00 PM UTC Active 329346 6175 5017 801 isosorbide mono. (IMDUR) 60 MG TB24 60.0 MG ORAL ONCE DAILY Start: [facility] 2024 2:00:0 0 PM UTC End: [facility] 2024 7:00:0 0 PM UTC PEMA Johnson [id number] on July 26, 2025 7:28:00 PM UTC Active 421513 9952 1005 290 EZETIMIBE 10 MG TABS 10.0 MG ORAL ONCE DAILY Start: [facility] 2024 2:00:0 0 PM UTC End: [facility] 2024 7:00:0 0 PM UTC PEMA Johnson [id number] on July 26, 2025 7:28:00 PM UTC Discont inued Free Text Med Aspirin 81 Oral Tablet Chewable 81 MG 1.0 TAB ORAL ONCE DAILY Start: [facility] 2024 2:00:0 0 PM UTC End: [facility] 2024 2:00:0 0 PM UTC PEMA Johnson [id number] on July 26, 2025 7:39:00 PM UTC Discont inued Free Text Med Carvedilol Oral Tablet 25 MG 1.0 TAB ORAL ONCE DAILY Start: [facility] 2024 2:00:0 0 PM UTC End: [facility] 2024 2:00:0 0 PM UTC PEMA Johnson [id number] on July 26, 2025 7:40:00 PM UTC Discont inued 408233 2602 4662 490 levothyroxi ne (SYNTHROID) 100 MCG TABS 100.0 MCG ORAL BEFORE BREAKFAST Start: [facility] 2024 11:30: 00 AM UTC End: [facility] 2024 1:27:3 1 PM UTC PEMA Johnson [id number] on July 27, 2025 1:27:00 PM UTC Discont inued 624839 2965 9007 520 hydrALAZINE (APRESOLINE ) 25 MG TABS 50.0 MG ORAL ONCE DAILY Start: [facility] 2024 2:00:0 0 PM UTC End: [facility] 2024 2:26:2 2 AM UTC PEMA Johnson [id number] on July 28, 2025 2:26:00 AM UTC Discont inued 6655 3000 201 baby aspirin (MIKY) 81 MG CHEW 81.0 MG ORAL ONCE DAILY Start: [facility] 2024 2:00:0 0 PM UTC End: [facility] 2024 4:10:1 7 PM UTC PEMA Johnson [id number] on July 26, 2025 7:39:00 PM UTC Discont inued [id number] 2097 9093 120 carvedilol (COREG) 12.5 MG TABS 25.0 MG ORAL ONCE DAILY Start: [facility] 2024 2:00:0 0 PM UTC End: [facility] 2024 4:10:1 7 PM UTC PEMA Johnson [id number] on July 26, 2025 7:40:00 PM UTC Discont inued [id number] 3309 9189 001 morphine sulfate (PF) CJ 2 MG/ML SOLN 2.0 MG INTRAV ENOUS ONE TIME ONLY (SCHEDULED DOSE) Start: [facility] 2024 4:13:0 0 AM UTC End: [facility] 2024 4:13:0 0 AM UT PEMA HEIDI Johnson [facility] ED on July 27, 2025 4:11:00 AM UTC Discont inued [id number] 9083 3061 401 hydrALAZINE (APRESOLINE ) 20 MG/ML SOLN 20.0 MG INTRAV ENOUS GIVE ONE DOSE NOW Start: [facility] 2024 6:19:0 0 AM UTC End: [facility]2024 6:32:1 7 AM UTC TAVO Aviles [id number] on July 27, 2025 6:32:00 AM UTC Discont inued [id number] 4959 2039 475 insulin glargine-yf gn 100 UNIT/ML SOPN 10.0 UNT SUBCUT ANEOUS ONCE DAILY Start: [facility] 2024 2:00:0 0 PM UTC End: [facility] 2024 4:10:1 7 PM UTC KATHY MARKHAM [id number] on July 27, 2025 12:31:00 PM UTC Active 008240 4899 8762 129 levothyroxi ne (SYNTHROID) 100 MCG TABS 100.0 MCG ORAL BEFORE BREAKFAST Start: [facility] 2024 1:27:0 0 PM UTC End: [facility] 2024 7:00:0 0 PM UTC PEMA Johnson [id number] on July 27, 2025 1:27:00 PM UTC Discont inued 822328 6620 3025 503 methylPREDN ISolone sod succ 40 MG SOLR 40.0 MG INTRAV ENOUS ONCE DAILY Start: 2024 2:00:0 0 PM UTC End: [facility] 2024 2:00:0 0 PM UTC EVITA MCNEILL [id number] on July 27, 2025 1:57:00 PM UTC Active 011373 2841 4001 820 predniSONE (DELTASONE) 20 MG TABS 20.0 MG ORAL ONCE DAILY Start: [facility] 2024 2:00:0 0 PM UTC End: [facility] 2024 7:00:0 0 PM UTC KATHY MARKHAM [id number] on July 27, 2025 1:57:00 PM UTC Discont inued [id number] 7935 3026 201 heparin sodium (PORCINE) 5000 UNIT/ML SOLN 5000. 0 UNT SUBCUT ANEOUS TWICE A DAY Start: [facility] 2024 2:00:0 0 PM UTC End: [facility]2024 4:10:1 7 PM UTC KATHY MARKHAM [id number] on July 27, 2025 1:58:00 PM UTC Discont inued 724179 3117 9007 520 hydrALAZINE (APRESOLINE ) 25 MG TABS 100.0 MG ORAL THREE TIMES A DAY Start: [facility] 2024 2:00:0 0 PM UTC End: [facility] 2024 4:10:1 7 PM UTC IBIS Wilkes [id number] on July 28, 2025 2:26:00 AM UTC Active [id number] 3000 4059 701 NIFEdipine ER (PROCARDIA XL) 30 MG TB24 90.0 MG ORAL ONCE EVERY EVENING Start: [facility] 2024 2:27:0 0 AM UTC End: [facility]2024 7:00:0 0 PM UTC IBIS ZIAD W [id number] on July 28, 2025 2:27:00 AM UTC SOCIAL HISTORY SOCIAL HISTORY - Smoking Status SNOMED-CT Social History Element Description Effective Dates Offered Cessation Comment Updated By [id number] Smoking Status Unknown If Ever Smoked SOCIAL HISTORY - Gender Sex: Female SOCIAL HISTORY - Status : status i nformation is not available Intention in Next Year: intention information is not available SOCIAL HISTORY - Assessments Code System Description Status Date Value of Assessment Updated By Comment Assessment Information is no t available SOCIAL HISTORY - Kaibab Affiliation Kaibab information is not av ailable SOCIAL HISTORY - Legal Sex Legal Sex information is not available SOCIAL HISTORY - Sexual Behavior Sexual Orientation Gender Identity SNOMED-CT Description SNO MED -CT Description Activity Level No of Partners Partner Type UpdatedBy Information is not available SOCIAL HISTORY - Occupation Occupation information is no t available VITAL SIGNS PATIENT VITAL SIGNS This section displays the mo st recent value for each vital sign as of July 28, 2025 9:19:33 PM UTC Loinc Code Vital Sign [place] [address]-2 Blood glucose monitors July 28, 2025 4:32:00 PM UTC 150.0 mg/dL 8302-2 Body height July 25, 2025 4:05:48 PM UTC 160.02 cm (63.0 in) [id number] on July 25, 2025 4:05:48 PM UTC 51230-5 Body mass index (BMI ) [Ratio] July 25, 2025 4:05:48 PM UTC 22.366 kg/m2 3140-1 Body Surface Area Derived From Formula July 25, 2025 4:05:48 PM UTC 1.5904 m2 8310-5 Body temperature July 28 1:30:00 PM UTC 98.1 [degF] 21768-6 Body weight Measured July 25, 2025 4:05:48 PM UTC 57.27 kg (126.0 lb) [id number] on July 25, 2025 4:05:48 PM UTC 8462-4 Diastolic blood pressure July 28, 2025 1:30:00 PM UTC 58.0 mm[Hg] 8867-4 Heart rate July 28, 2025 1:30:00 PM UTC 69 /min 3150-0 Inhaled oxygen concentration July 27, 2025 10:11:00 AM UTC 45.0 % 8478-0 Mean blood pressure July 28, 2025 1:30:00 PM UTC 128.0 mm[Hg] 39042-4 Oxygen saturation in Arterial blood by Pulse oximetry July 28, 2025 1:30:00 PM [facility] 96.0 % 9279-1 Respiratory rate July 28 1:30:00 PM [facility] 16 /min 8480-6 Systolic blood pressure July 28, 2025 1:30:00 PM [facility] 130.0 mm[Hg] 79899-8 Vital capacity [Volu me] Respiratory system by Spirometry July 28, 2025 1:05:00 PM [facility] 500.0 ml PEDIATRIC GROWTH CHART - VITAL SIGNS This section displays Head C ircumference Percentile, Weight for Length Percentile and BMI Percentile Loinc Code Pediatric Measure Age (Months) Result Updat ed By No Pediatric Growth Chart Pe rcentile Information Available. GOALS PATIENT GOALS Goal Assigned Date Updated By NASH LLANOS REMAINS FREE OF COMPLICATIONS FROM SEPSIS DURING THE CARE PERIOD July 25, 2025 [id number] on July 25, 2025 4:38:14 PM [facility] +NASH LLANOS REMAINS FREE F ROM COMPLICATIONS OF HEART FAILURE July 25, 2025 [id number] on July 25, 2025 4:38:14 PM [facility] NASH LLANOS REMAINS FREE FR OM COMPLICATIONS OF PNEUMONIA DURING THE CARE PERIOD July 25, 2025 [id number] on July 25, 2025 4:38:14 PM [facility] NASH LLANOS REMAINS FREE FR OM COMPLICATIONS OF DIABETES MELLITUS DURING THE CARE PERIOD July 25, 2025 [id number] on July 25, 2025 4:38:14 PM [facility] NASH LLANOS REMAINS FREE OF COMPLICATIONS RELATED TO IV THERAPY DURING THE CARE PERIOD July 25, 2025 [id number] on July 25, 2025 4:38:14 PM [facility] NASH LLANOS REMAINS FREE FR OM COMPLICATIONS OF DIALYSIS DURING THE CARE PERIOD July 25, 2025 [id number] on July 25, 2025 9:38:36 PM [facility] NASH LLANOS REMAINS FREE FR OM COMPLICATIONS FOR MED-SURG ADMIT DURING THE CARE PERIOD July 27, 2025 [id number] on July 28, 2025 4:26:13 AM [facility] HEALTH CONCERNS Problems Concern Status Health Concern problem infor mation not available. Smoking Status Status Years Used Consumed packs p er day Health Concern smoking histo ry information not available. Family History Concern Status Health Concern family histor y information not available. ENCOUNTERS ENCOUNTER INFORMATION Reason for Visit RESPIRATORY FAILURE Admission July 25, 2025 3:14:00 PM UTC [facility] [address] [facility] [id number] Discharge July 28, 2025 7:00:00 PM UTC DISCHARGED TO HOME OR SELF CARE ENCOUNTER DIAGNOSES Notes information is not radha ilable. Code System Diagnosis Onset Date Diagnosis information is not available. ABSTRACT DIAGNOSES Code System Diagnosis Updated By Abatement Date Abstract Diagnosis informati on is not available. CARE TEAM Care Dehorner Role DEFINED NO Primary Care LAILAMI MERLOS Consulting HEIDI MCADAMS Primary Attending HEIDI MCADAMS Referring HOLLIE GERDAD Consulting HEIDI MCADAMS Admitting LARISSA BAUMANN [facility] DISCHARGE INSTRUCTION DISCHARGE INSTRUCTION Encounter [id number] Admit Date July 25, 2025 3:1 4:00 PM UTC Discharge Date July 28, 2025 7:0 0:00 PM UTC PATIENT EDUCATION SUMMARY Patient/Visit Information: Patient Name: NASH LLANOS Diag: Attending Caregiver: PEMA Johnson Discharge Instruction Sheets Provided: Acute Respiratory Failure, Adult BEFAST-Stroke Warning Signs Bowel Obstruction, Euzs-tq-Kmns Discharge Information Fall Prevention in Hospitals and in the Home [facility] - Medication Management KYNECT- HELP Medication Side Effects Suicide - Managing your Feelings Patient Instructions: Followup Appointments/Instructions: HISTORY AND PHYSICAL NOTE CONSULTATION NOTE DISCHARGE SUMMARY NOTE DISCHARGE SUMMARY NOTE Note Title Discharge Summary Date Of Service July 28, 2025 9:0 1:53 PM UT Created By [id number] on July 28, 2025 9:01:53 PM UTC Signed By [id number] on July 28, 2025 9:06:54 PM UTC Admit Date Admit Date: Discharge Date Discharge Date: 06/27/25 Patient Care Team Admitting Provider: PEMA ROBERSON Attending Provider: PEMA ROBERSON Consulting Provider: IBIS ROBERSON History of Present Illness Nash Llanos is a 55-year-old female with a past medical history significant for type 2 diabetes mellitus, hypertension, ESRD on HD TTS, poorly controlled hypothyroidism, and CHF who presented to [facility] with worsening shortness of breath. The patient was recently admitted to [facility] from 07/22-07/24, having been found to have a large effusion and underwent thoracentesis with 1.8L of transudative fluid removed. She was discharged home yesterday and returned to the ED in [place] the following day with increasing lethargy and dyspnea. A transfer to our facility was requested due to the lack of their dialysis capabilities. Hospital Course Acute on chronic hypoxemic and hypercapnic respiratory failure Left sided pleural effusion and atelectasis with L lung whiteout L sided pneumonia Respiratory acidosis -07/26: Thoracentesis done overnight, 500 cc of fluid removed. Discussed with Interventional Radiology, lung ultrasound performed with no real fluid to drain. Discussed with pulmonology, not a good candidate for bronchoscopy at this time due to high oxygen demands and patient preference to avoid intubation. Continue renally dosed Zosyn and linezolid. -07/27: Continue to wean O2 to home baseline. Continue abx therapy. Can transfer out of the icu 07/28: Patient's oxygen saturation was back to baseline. She denied any shortness a breath, chest pain. She was discharged on Augmentin with renal dosing to complete her antibiotic therapy and prednisone. We had a lengthy discussion regarding her goals of care and a referral to hospice/palliative care was provided. ESRD on HD TTS Her dialysis schedule was continued during her inpatient. She is to follow up with Nephrology. Hypothyroidism - TSH 22.8, free T4 3.3 - 07/26: Synthroid increased to 100 mcg daily from 75 mcg During admission the patient refused BiPAP, and intubation. I discussed with her that given the significance of her lung disease she may need these interventions interventions in the future and if she wishes not to pursue aggressive treatment she should consider hospice or palliative care status. Patient was in agreement with this plan and a referral to hospice care was provided. Vital Signs 0830 T 98.1 HR 69 RR 16 BP 130 / 58 (L) O2Sat 96 0805 HR 69 RR 18 O2Sat 96 0552 BP 141 / 64 0426 T 98.1 Intake and Output previous current encounter day day cumulative Intake 914 - 3951 Output 3 - 3503 Balance 911 - 448 Physical Exam Narrative General: Awake, oriented, NAD Neuro: awake, no apparent focal deficits Eye: normal conjunctiva HENT: normocephalic, atraumatic Neck: no JVD Lungs: Diminished lung sounds bilaterally, on chronic O2. Heart: normal rate, normal rhythm Abdomen: nondistended MSK: normal range of motion and strength Skin: warm, dry, no rashes or lesions Psych: flat affect Lab Results 1130 Bedside Testing GLUMETER 150 (H) 0646 Bedside Testing GLUMETER 212 (H) 0520 Chemistry NA 136 K 3.9 CHLORIDE 96 (L) CO2 25.2 AGAP 18.7 GLUC 245 (H) BUN 60 (H) CREAT 2.9 (H) GFR 18 (L) OSMO DEANDRE 308 (H) CALCIUM 8.3 (L) MG 1.9 0520 Hematology WBC 7.7 RBCS 3.3 (L) HGB 9.5 (L) HCT 31.5 (L) MCV 96.9 MCH 29.2 MCHC 30.2 (L) RDW 17.9 (H) PLT S 67 (L) MPV 11.8 (H) MANDIFF? No 2347 Bedside Testing GLUMETER 337 (H) 2206 Bedside Testing GLUMETER 383 (H) 2043 Bedside Testing GLUMETER 360 (H) 1828 Bedside Testing GLUMETER 304 (H) Diagnostic Results XR CHEST 1 VIEW PORTABLE Reason For Study: Shortness of breath COMPARISON:07/23/2025 TECHNIQUE An AP portable view of the chest was obtained. FINDINGS Status post median sternotomy. Atherosclerotic aorta. New complete opacification of the left lung with mild mediastinal shift to the left suggesting underlying atelectasis/pneumonia combined with pleural fluid. Some improvement in the infiltrate in the right lung with improved aeration of the right upper lobe. Continued pneumonia in the right base. IMPRESSION: New complete opacification of the left lung with mild mediastinal shift to the left suggesting underlying atelectasis/pneumonia combined with pleural fluid. Procedures and Surgeries None Condition at Discharge Stable Discharge Medications Albuterol Sulfate HFA Inhalation Aerosol Solution 108 (90 Base) MCG/ACTContinue taking same as homeAmoxicillin-Pot Clavulanate Oral Tablet 500-125 MG1 TAB BY MOUTH TWICE A DAY (ePrescribed by EVITA ROBERSON on 1110) Aspirin 81 Oral Tablet Chewable 81 MG1 TAB BY MOUTH ONCE DAILY Carvedilol Oral Tablet 25 MG1 TAB BY MOUTH ONCE DAILY Clopidogrel Bisulfate Oral Tablet 75 MG1 TAB BY MOUTH ONCE DAILY Ezetimibe Oral Tablet 10 MG1 TAB BY MOUTH ONCE DAILY hydrALAZINE HCl Oral Tablet 50 MG1 TAB BY MOUTH ONCE DAILY Isosorbide Mononitrate ER Oral Tablet Extended Release 24 Hour 60 MG1 TAB BY MOUTH ONCE DAILY levothyroxine (SYNTHROID)100 MCG BY MOUTH BEFORE BREAKFAST (ePrescribed by EVITA ROBERSON on 1110) NIFEdipine ER (PROCARDIA XL)90 MG BY MOUTH ONCE EVERY EVENING (ePrescribed by EVITA ROBERSON on 1110) Pantoprazole Sodium Oral Tablet Delayed Release 20 MG1 TAB BY MOUTH ONCE DAILY Percocet Oral Tablet 10-325 MG1 TAB BY MOUTH EVERY SIX HOURS NEEDED for MODERATE PAIN 4-6 PAIN SCALE predniSONE (DELTASONE)20 MG BY MOUTH ONCE DAILY (ePrescribed by EVITA ROBERSON on 1109) Time spent with Patient Dr. Blandonward than 35 minutes were spent with the patient discussing prognosis, disease management and goals of care. Electronically signed by EVITA ROBERSON on 1606 PROGRESS NOTE CARE TEAM CARE sewer pipe offbearer Role on Team Location Telecom Status Start Date End Zackery e Updated By CHELITA ROBERSON Consulting normal July 26, 2025 1:58:17 PM [facility] July 28, 2025 7:00:00 PM [facility] [id number] on July 26, 2025 1:58:17 PM [facility] IBIS ROBERSON Consulting normal July 26, 2025 12:35:58 AM [facility] July 28, 2025 7:00:00 PM [facility] [id number] on July 26, 2025 1:58:17 PM [facility] DAND HOLLIE P PHY Consulting normal July 26, 2025 12:35:58 AM UTC July 28, 2025 7:00:00 PM UTC [id number] on July 26, 2025 1:58:17 PM UTC NO DEFINED PRIMARY C PCP normal July 25, 2025 2:52:59 PM UTC July 28, 2025 7:00:00 PM UTC [id number] on July 26, 2025 1:58:17 PM UTC PEMA ROBERSON Referring normal July 25, 2025 2:52:59 PM UTC July 28, 2025 7:00:00 PM UTC [id number] on July 26, 2025 1:58:17 PM UTC PEMA ROBERSON Attending normal July 25, 2025 2:52:59 PM UTC July 28, 2025 7:00:00 PM UTC [id number] on July 26, 2025 1:58:17 PM UTC PEMA ROBERSON Admitting normal July 25, 2025 2:52:59 PM UTC July 28, 2025 7:00:00 PM UTC [id number] on July 26, 2025 1:58:17 PM UTC
[2025-07-29 11:52] VITALS: BP 164/67; PULSE 65; RESP 22; TEMP 37.2; O2SAT 99; BMI 19.5
[2025-07-29 12:00] VITALS: BP 164/67; PULSE 65; O2SAT 97
--- OUTSIDE RECORDS SUMMARY | 2025-07-29 12:04 | XMS_ITS | Encounter Summary ---
Author Organization [facility] Address [address] [place] [address] Care Team Providers Care Neon Sign Installer Name Role Phone RileyRosemarie beach STEVE Primary Care Provider [phone] Encounter Details Date Type Department Care Team [...] a skilled nursing (including now)? No 06/03/2025 [facility] Utilities Answer Date Recorded In the [...] drink first t jacqueline in the morning (EYE-REAL ESTATE PORTFOLIO MANAGER) to steady your nerves or to [...] Description 08/20/2025 12:00 PM EST Office Visit [facility] [place] [address], [address] [place] [address] Kaiden Harvey MD [address] [place] [address] 11/06/2025 9:15 AM EST Office Visit [facility] [address], [address] [place] [address] Joanna Bartlett MD [address] [facility] [address] [place] [address] documented as of this encounter Visit Diagnoses Not on filedocumented in this encounter Additional Health Concerns Assessment Noted Time A Body Mass Index follow-up plan has been documented for the patient 06/10/2025 2:59 PM EDT documented as of this encounter Care Teams Neon Sign Installer Relationship Specialty Start Date End Date Rosemarie Riley APRN [address] [place] [address] PCP - General 04/02/25 documented as of this encounter
--- OUTSIDE RECORDS SUMMARY | 2025-07-29 12:05 | XMS_ITS | Encounter Summary ---
Author Organization [facility] Address [address] [place] [address] Care Team Providers Care Cold Water Machine Operator Name Role Phone Osmani Becker MD Primary Care Provider [phone] Rosemarie Riley APRN Primary Care Provider [phone] Haydee Mccloud Unavailable Unavailable Baylee Gracia RN Unavailable Unavailable Encounter Details Date Type Department Care Team (Late st Contact Info) Description 02/21/2025 Orders Only External Location [address] [place] [address] Provider, External Social History Tobacco Use Types [...] and Family Not on file 06/25/2024 Attends [employer] Not on file 06/25 Active Member [...] t jacqueline in the morning (EYE-CYBER SECURITY CONSULTANT) to steady your nerves or [...] Upcoming Encounters Date Type Department Care Team ([facility] st Contact Info) Description 08/20/2025 12:00 PM EST Office Visit [facility] [place] [address], [address] [place] [address] Kaiden Harvey MD [address] [place] [address] 11/06/2025 9:15 AM EST Office Visit [facility] [address], [address] [place] [address] Joanna Bartlett MD [address] [place] [address] documented as of this encounter [...] documented as of this encounter Care Teams Cold Water Machine Operator Relationship Specialty Start Date End Date Osmani Becker MD [address] [facility] [address] [place] [address] PCP - General 01/30/21 03/03/25 Rosemarie Riley APRN [address] [place] [address] [place] [address] PCP - General 04/02/25 Haydee Mccloud Scallop Cutter Machine Explosives Detonator 06/03/25 06/25/25 Baylee Gracia, RN Registered Nurse 06/12/25 documented as of this encounter
--- OUTSIDE RECORDS SUMMARY | 2025-07-29 12:05 | XMS_ITS | Encounter Summary ---
Author Organization [facility] Address [address] [place] [address] Care Team Providers Care Oxygen Equipment Technician Name Role Phone RileyRosemarie beach Shanel WILSON Primary Care Provider [phone] Encounter Details Date Type Department Care Team [...] drink first t jacqueline in the morning (EYE-STEREOTYPER APPRENTICE) to steady your nerves or to get rid of a hangover? 0 06/21/2024 CAGE Questionnaire Score 0 024 Utilities Answer Date Recorded In the past 12 months has th e [employer], gas, oil, or water company threatened to [...] Description 08/20/2025 12:00 PM EST Office Visit [facility] [place] [address] [facility], [address] [place] [address] Kaiden Harvey MD [address] [facility] [address] [place] [address] 11/06/2025 9:15 AM EST Office Visit [facility] [address] [place] [address] Joanna Bartlett MD [address] [facility] [address] [place] [address] documented as of this encounter Visit Diagnoses Not on filedocumented in this encounter Additional Health Concerns Infection Onset Date Last Indicated Resolved Time COVID-19 Rule-Out 06/01/2025 06/01/2025 06/01/2025 7:59 PM EDT Assessment Noted Time A Body Mass Index follow-up plan has been documented for the patient 06/10/2025 2:59 PM EDT documented as of this encounter Care Teams Oxygen Equipment Technician Relationship Specialty Start Date End Date Rosemarie Riley APRN [facility] [place] [address] PCP - General 04/02/25 documented as of this encounter
--- OUTSIDE RECORDS SUMMARY | 2025-07-29 12:05 | XMS_ITS | Encounter Summary ---
Author Organization [facility] Address [address] [place] [address] Care Team Providers Care Senior Principal Name Role Phone RosemaryRosemarie Shanel WILSON Primary Care Provider [phone] Baylee Gracia RN Unavailable Unavailable Encounter Details Date Type Department Care Team (Late st Contact Info) Description 07/22/2025 Lab Requisition [facility] [address] [place] [address] Kyara Gonzales PA [address] [place] [address] Encounter for general adult medical examination [...] in the past 12 m [facility], were you homeless or living in a retirement (including now)? No 06/03/2025 [facility] Utilities Answer Date Recorded In the past 12 months has th e [employer], gas, oil, or water Walk-in Appointment Scheduler threatened to shut off services in your [...] drink first t jacqueline in the morning (EYE-MARKETING ANALYST) to steady your nerves or to get [...] Description 08/20/2025 12:00 PM EST Office Visit [facility] [place] [address], [address] [place] [address] Kaiden Harvey MD [address] [place] [address] 11/06/2025 9:15 AM EST Office Visit [facility] [address] [facility], [address] [place] [address] Joanna Bartlett MD [address] [place] [address] documented as of this encounter [...] the following criteria are present: (1) pleural owvlw-rv-sopxg protein ratio of >0.5, (2) pleural ivekp-gh-taxub LDH ratio of >0.6, or (3) a pleural fluid LDH activity that is >2/3 the upper limit of a normal serum LDH activity. Light's criteria may misclassify ~25% of transudates as exudates in heart failure. These can be identified by calculating a odney-ew-zmjxtiz albumin gradient (>1.2 g/dL) and/or a vonev-ut-tcply protein gradient (>3.1 g/dL). [facility] BODY FLUIDS AND STOOLS O RDERABLES Final Result Performing Organization Address [facility] de Phone Number [facility] [address] [place] [address] * Glucose, body fluid (07/22/2025 10:15 AM [...] O BRENDAERABLES Final Result Performing Organization Address [facility] de Phone Number [facility] [address] [place] [address] * Total Protein, Pleural Fluid (07/22/2025 10:15 AM EST) Total Protein, Fluid 2.5 g/dL 07/22/2025 1:21 PM EST [facility] Pleural Fluid 07/22/2025 10: 15 AM EST 07/22/2025 12:45 PM EST Narrative [facility] - 07/22/2025 1:21 PM EST This test was developed and its performance characteristics determined by [facility]. The U.S. Food and Drug Administration has not approved or cleared this test. However, FDA clearance or approval is not currently required for clinical use. The results are not intended to be used as the sole means for clinical diagnosis or patient management decisions. [facility] BODY FLUIDS AND STOOLS O RDERABLES Final Result [facility] [address] [place] [address] * Lactate Dehydrogenase Total, Body Fluid (SO) (07/22/2025 10:15 AM EST) Lactate Dehydrogenase Total, Body Fluid 91 U/L 07/24/2025 3:04 AM EST [facility] LDH Fluid Source Pleural fluid 07/24/2025 3:04 AM EST [facility] Pleural Fluid 07/22/2025 10: 15 AM EST 07/22/2025 12:45 PM EST Narrative [facility] - 07/24/2025 3:04 AM EST INTERPRETIVE INFORMATION: Lactate Dehydrogenase Total, Body Fluid For information on body fluid reference ranges and/or interpretive guidance visit http://[employer]/bodyfluids/ This test was developed and its performance characteristics determined by [facility]. It has not been cleared or approved by the US Food and Drug Administration. This test was performed in a CLIA certified laboratory and is intended for clinical purposes. Performed By: [facility] [address] [place] [address] Nursing Attendant: Rosales Cooper MD, PhD CLIA Number: [id number] [facility] REF LAB BLOOD AND FLUID ORD Final Result Performing Organization Address City/[facility] Co de Phone Number [facility]) [address] [place] [address] documented in this encounter Visit Diagnoses Diagnosis [...] as of this encounter Care Teams Senior Principal Relationship Specialty Start Date End Date Rosemarie Riley, STEVE [address] [place] [address] PCP - General 04/02/25 Baylee Gracia, RN Registered Nurse 06/12/25 documented as of this encounter
--- OUTSIDE RECORDS SUMMARY | 2025-07-29 12:05 | XMS_ITS | Encounter Summary ---
Author Organization [facility] Address [address] [place] [address] Care Team Providers Care Window Glass Installer Name Role Phone Osmani Becker MD Primary Care Provider [phone] Rosemarie Riley APRN Primary Care Provider [phone] Haydee Mccloud Unavailable Unavailable Baylee Gracia RN Unavailable Unavailable Encounter Details Date Type Department Care Team (Late st Contact Info) Description 02/20/2025 Orders Only External Location [address] [place] [address] Provider, External Social History Tobacco Use Types [...] and Family Not on file 06/25/2024 Attends [employer]reg[employer] Services Not on file 06/25 Active Member [...] place to sleep or slept in a long term (including now)? No 06/25/2024 CAGE ASSESSMENT Answer [...] drink first t jacqueline in the morning (EYE-MOTOR RUNNER) to steady your nerves or to get [...] Upcoming Encounters Date Type Department Care Team ([facility] st Contact Info) Description 08/20/2025 12:00 PM EST Office Visit [facility] [place] [address], [address] [place] [address] Kaiden Harvey MD [address] [place] [address] 11/06/2025 9:15 AM EST Office Visit [facility] [address] [facility], [address] [place] [address] Joanna Bartlett MD [address] [place] [address] documented as of this encounter [...] documented as of this encounter Care Teams Window Glass Installer Relationship Specialty Start Date End Date Osmani Becker MD [address] [facility] [address] [place] [address] PCP - General 01/30/21 03/03/25 Rosemarie Riley APRN [address] [place] [address] [place], [place] [id number] PCP - General 04/02/25 Haydee Mccloud Chairman President And Chief Executive Officer Hand Thermal Cutter 06/03/25 06/25/25 Baylee Gracia, RN Registered Nurse 06/12/25 documented as of this encounter
--- OUTSIDE RECORDS SUMMARY | 2025-07-29 12:05 | XMS_ITS | Encounter Summary ---
Author Organization [facility] Address [address] [place] [address] Care Team Providers Care Eye Glass Frame Polisher Name Role Phone Osmani Becker MD Primary Care Provider [phone] Rosemarie Riley APRN Primary Care Provider [phone] Haydee Mccloud Unavailable Unavailable Baylee Gracia RN Unavailable Unavailable Encounter Details Date Type Department Care Team (Late st Contact Info) Description 02/20/2025 Orders Only External Location [address] [place] [address] Provider, External Social History Tobacco Use Types [...] place to sleep or slept in a snf (including now)? No 06/25/2024 CAGE ASSESSMENT Answer [...] first t jacqueline in the morning (EYE-MEDICAL LAB ASSISTANT) to steady your nerves or to [...] Upcoming Encounters Date Type Department Care Team ([facility] st Contact Info) Description 08/20/2025 12:00 PM EST Office Visit [facility] [place] [address], [address] [place] [address] Kaiden Harvey MD [address] [place] [address] 11/06/2025 9:15 AM EST Office Visit [facility] [address], [address] [place] [address] Joanna Bartlett MD [address] [place] [address] documented as of this encounter [...] documented as of this encounter Care Teams Eye Glass Frame Polisher Relationship Specialty Start Date End Date Osmani Becker MD [address] [facility] [address] [place] [address] PCP - General 01/30/21 03/03/25 Rosemarie Riley APRN [address] [place] [address] PCP - General 04/02/25 Haydee Mccloud Mdm Sr Yard Conductor 06/03/25 06/25/25 Baylee Gracia, RN Registered Nurse 06/12/25 documented as of this encounter
--- OUTSIDE RECORDS SUMMARY | 2025-07-29 12:06 | XMS_ITS | Encounter Summary ---
Author Organization [facility] Address [address] [place] [address] Care Team Providers Care Oil Sprayer Name Role Phone Osmani Becker MD Primary Care Provider [phone] Rosemarie Riley APRN Primary Care Provider [phone] Haydee Mccloud Unavailable Unavailable Baylee Gracia RN Unavailable Unavailable Encounter Details Date Type Department Care Team (Late st Contact Info) Description 12/24/2024 Orders Only External Location [address] [place] [address] Provider, External Social History Tobacco Use Types [...] place to sleep or slept in a group home (including now)? No 06/25/2024 CAGE ASSESSMENT [...] drink first t jacqueline in the morning (EYE-RIM TURNING FINISHER) to steady your nerves or to [...] Upcoming Encounters Date Type Department Care Team ([facility] st Contact Info) Description 08/20/2025 12:00 PM EST Office Visit [facility] [place] [address], [address] [place] [address] Kaiden Harvey MD [address] [place] [address] 11/06/2025 9:15 AM EST Office Visit [facility] [address], [address] [place] [address] Joanna Bartlett MD [address] [place] [address] documented as of this encounter [...] documented as of this encounter Care Teams Oil Sprayer Relationship Specialty Start Date End Date Osmani Becker MD [address] [facility] [address] [place] [address] PCP - General 01/30/21 03/03/25 Rosemarie Riley APRN [address] [place] [address] PCP - General 04/02/25 Haydee Mccloud Ict Help Desk Technician Show Design Supervisor 06/03/25 06/25/25 Baylee Gracia, RN Registered Nurse 06/12/25 documented as of this encounter
[2025-07-29 12:07] VITALS: O2SAT 99
--- OUTSIDE RECORDS SUMMARY | 2025-07-29 12:07 | XMS_ITS | Encounter Summary ---
Author Organization [facility] Address [address] [place] [address] Care Team Providers Care Putter In Name Role Phone Osmani Becker MD Primary Care Provider [phone] Rosemarie Riley APRN Primary Care Provider [phone] Haydee Mccloud Unavailable Unavailable Baylee Gracia RN Unavailable Unavailable Encounter Details Date Type Department Care Team (Late st Contact Info) Description 02/20/2025 Orders Only External Location [address] [place] [address] Provider, External Social History Tobacco Use Types [...] drink first t jacqueline in the morning (EYE-ROAD MECHANIC) to steady your nerves or to get [...] Upcoming Encounters Date Type Department Care Team ([facility] st Contact Info) Description 08/20/2025 12:00 PM EST Office Visit [facility] [place] [address], [address] [place] [address] Kaiden Harvey MD [address] [place] [address] 11/06/2025 9:15 AM EST Office Visit [facility] [address] [facility], [address] [place] [address] Joanna Bartlett MD [address] [place] [address] documented as of this encounter [...] documented as of this encounter Care Teams Putter In Relationship Specialty Start Date End Date Osmani Becker MD [address] [facility] [address] [place] [address] PCP - General 01/30/21 03/03/25 Rosemarie Riley APRN [address] [place] [address] [place] [address] PCP - General 04/02/25 Haydee Mccloud Car Restorer Mine Captain 06/03/25 06/25/25 Baylee Gracia, RN Registered Nurse 06/12/25 documented as of this encounter
--- OUTSIDE RECORDS SUMMARY | 2025-07-29 12:07 | XMS_ITS ---
Author Organization [facility] Address [address] [place] [address] Care Team Providers Care School Bus Dispatcher Name Role Phone Rosemarie Riley APRN Primary Care Provider [phone] Baylee Gracia RN Unavailable Unavailable Transitional Care Management Status:Closed (Closed) Start date:06/12/2025 Enrollment date:06/17/2025 Enrollment reason:Identified using hospital discharge data End date:07/12/2025 Close reason:Patient graduated Overview This episode type is for outpatient care managers enrolling patients in the CMS Transitional Care Management program. Continued Care and Services Coordination
--- OUTSIDE RECORDS SUMMARY | 2025-07-29 12:07 | XMS_ITS | Encounter Summary ---
Author Organization [facility] Address [address] [place] [address] Care Team Providers Care Caster Helper Name Role Phone RileyRosemarie beach Shanel WILSON Primary Care Provider [phone] Baylee Gracia RN Unavailable Unavailable Reason for Visit * Reason Comments HRCM Encounter Details Date Type Department Care Team ([facility] Contact Info) Description 07/04/2025 Patient Outreach POPULATION HEALTH [address] [facility], [address] [place] [address] Baylee Gracia, RN HRCM Social [...] in a long-term (including now)? No 06/03/2025 [facility] Utilities Answer Date Recorded [...] drink first t jacqueline in the morning (EYE-DIRECTOR OF AUTOMATION) to steady your nerves or to get [...] Patient was DC late last week from [place]. He reports she is doing great. Mobility [...] days. Next Steps: Checklist updated. Baylee Gracia [facility] Nurse Population Health documented in this encounter Plan of Treatment Upcoming Encounters Date Type Department Care Team (Late st Contact Info) Description 08/20/2025 12:00 PM EST Office Visit [facility] [place] [address] [facility] [place] [facility], [address] [place] [address] Kaiden Harvey MD [address] [facility] [place] [facility] [address] [place] [address] 11/06/2025 9:15 AM EST Office Visit [facility] [address] , [address] [place] [address] Joanna Bartlett MD [address] [facility] [address] [place] [address] documented as of this encounter [...] documented as of this encounter Care Teams Caster Helper Relationship Specialty Start Date End Date Rosemarie Riley, FOUNDER AND CHIEF EXECUTIVE OFFICER [address] [place] [address] PCP - General 04/02/25 Baylee Gracia RN Registered Nurse 06/12/25 documented as of this encounter
--- OUTSIDE RECORDS SUMMARY | 2025-07-29 12:07 | XMS_ITS | Clinical Summary ---
Author Organization [facility] Address [address] 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 Name Role Phone RosemaryRosemarie Shanel WILSON Primary Care Provider [phone] Baylee Gracia RN Unavailable Unavailable Allergies Active [...] Department Care Team Description 07/22/2025 Lab Requisition [facility] Lab [address] [place] [address] Kyara Gonzales PA Encounter for general adult medical examination without abnormal findings 07/16/2025 Patient Outreach [address], [address] [place] [address] Baylee Gracia, RN HRCM 07/10/2025 Patient Outreach [address], [address] [place] [address] Baylee Gracia RN HRCM 07/04/2025 Patient Outreach [address], [address] [place] [address] Baylee Gracia, RN [facility] 07/01/2025 Patient Outreach [facility] [address], [address] [place] [address] Baylee Gracia, RN [facility] 06/25/2025 Patient Outreach [facility] [address], [address] [place] [address] Baylee Gracia, RN CM 06/23/2025 Orders Only External Location [address] [place] [id number] Familia Shabazz DO 06/19/2025 Patient Outreach [facility] [address], [address] [address] Baylee Gracia, RN [facility] 06/17/2025 Orders Only [facility] Medicine Virtual Dept. [address] [place] [address] Mayra Rogers MD 06/17/2025 Patient Outreach [facility] [address], [address] [address] Baylee Gracia, RN [facility] 06/17/2025 Patient Outreach [facility] [address], [address] [place] [address] Baylee Gracia, CHAO [facility] 06/13/2025 Patient Outreach [facility] [address], [address] [address] Baylee Gracia, RN [facility] 06/12/2025 Patient Outreach [facility] [address], [address] [place] [address] Baylee Gracia, RN [facility] 06/12/2025 Referral Triage [facility] [address], [address] [address] Baylee Gracia, CHAO 06/10/2025 Travel 06/07/2025 Travel 06/06/2025 Patient Outreach [facility] [address]inton, [address] [place] [address] Haydee Mccloud Link 06/06/2025 Travel 06/04/2025 Travel 06/03/2025 [facility] Outreach [facility] [address] [place] [address] Wendie De Leon Link 06/03/2025 Patient Outreach [facility] [address] [facility] [address] [place] [address] Haydee Mccloud Link 06/02/2025 Travel 06/01/2025 4:48 PM EDT - 06/10/2025 4:54 PM EDT Hospital Encounter [facility] Inpatient [address] [place] [address] Faiza Nye MD Buckingham, Bradley P, MD [...] 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; History of glaucoma; Chronic congestive heart failure, unspecified heart failure type (CMS/HCC) Discharge Disposition: Home or Self Care 06/01/2025 Travel 05/21/2025 Telephone [facility] Urology [address], [address] [place] [address] Clarice Zhou I, RN 05/15/2025 Telephone [facility] Urology [address], [address] [place] [address] Clarice Zhou I, RN 05/13/2025 Orders Only [facility] Nephrology, Bone & Mineral Metabolism [address], [address] [place] [address] Tiny Summers MD Renal mass (Primary Dx) 05/06/2025 1:27 PM EDT - 05/06/2025 8:09 PM EDT Emergency [facility] Emergency Department [address] [place] [address] Sena Nvaarro MD Renal mass (Primary Dx); ESRD (end stage renal disease) ([facility]) Discharge Disposition: Home or Self Care 05/06/2025 Travel 05/05/2025 4:00 PM EDT - 05/05/2025 6:01 PM EDT Emergency [facility] Emergency Department [address] [place] [address] Neno Elizabeth MD ESRD (end stage renal disease) on dialysis ([facility]) (Primary Dx); Elevated TSH; Hyperphosphatemia Discharge Disposition: [...] any time in the past 12 m [facility], were you homeless or living in a longterm (including now)? 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) to steady your nerves or to [...] Description 08/20/2025 12:00 PM EST Office Visit [facility] Ulysses Randall [address], [address] [place] [address] Kaiden Harvey MD [address] [place] [address] 11/06/2025 9:15 AM EST Office Visit [facility] [address], [address] [place] [address] Joanna Bartlett MD [address] [facility] [address] [place] [address] Health Maintenance Due Date Last Done Comments [facility]-Depression Screening 1969 [facility]-Medicare Annual Wellness (AWV) 1970 [facility]-Infant/Child/Adol SDOH Screenings 1970 [id number] Vaccine (#1) 1974 Diabetes: Dental Exam 1979 [...] PM EDT ESRD (end stage renal disease) ([facility]) Unspecified complication of cardiac and [...] Fluid 2.5 g/dL 07/22/2025 1:21 PM EST [facility] Pleural Fluid 07/22/2025 10: 15 AM EST 07/22/2025 12:45 PM EST Narrative [facility] - 07/22/2025 1:21 PM EST This test was developed and its performance characteristics determined by [facility]. The U.S. Food and Drug Administration has not approved or cleared this test. However, FDA clearance or approval is not currently required for clinical use. The results are not intended to be used as the sole means for clinical diagnosis or patient management decisions. us Kyara [facility] BODY FLUIDS AND STOOLS O RDERABLES Final Result [facility] [address] [place] [address] * Lactate Dehydrogenase Total, Body Fluid (SO) (07/22/2025 10:15 AM EST) Lactate Dehydrogenase Total, Body Fluid 91 U/L 07/24/2025 3:04 AM EST [facility] ([facility]) LDH Fluid Source Pleural fluid 07/24/2025 3:04 AM EST [facility] ([facility]) Pleural Fluid 07/22/2025 10: 15 AM EST 07/22/2025 12:45 PM EST Narrative [facility] ([facility]) - 07/24/2025 3:04 AM EST INTERPRETIVE INFORMATION: Lactate Dehydrogenase Total, Body Fluid For information on body fluid reference ranges and/or interpretive guidance visit [email or web address]/ This test was developed and its performance characteristics determined by [facility]. It has not been cleared or approved by the US Food and Drug Administration. This test was performed in a CLIA certified laboratory and is intended for clinical purposes. Performed By: [facility] [address] [place] [address] Ropewalk Rope Maker: Rosales Cooper MD, PhD CLIA Number: [id number] Kyara [facility] REF LAB BLOOD AND FLUID ORD Final Result [facility] ([facility]) [address] [place] [address] * Lactate Dehydrogenase, Pleural Fluid (07/22/2025 10:15 AM EST) LDH, Fluid 98 U/L 07/23/2025 5:28 AM EST [facility] Pleural Fluid 07/22/2025 10: 15 AM EST 07/23/2025 5:00 AM EST Narrative [facility] - 07/23/2025 5:28 AM EST [...] the following criteria are present: (1) pleural mrbim-ie-muwyc protein ratio of >0.5, (2) pleural brfbc-zs-lsjcw LDH ratio of >0.6, or (3) a pleural fluid LDH activity that is >2/3 the upper limit of a normal serum LDH activity. Light's criteria may misclassify ~25% of transudates as exudates in heart failure. These can be identified by calculating a mcdxe-wn-qmchocl albumin gradient (>1.2 g/dL) and/or a zjuwo-pt-nivyl protein gradient (>3.1 g/dL). Kyara [facility] BODY FLUIDS AND STOOLS O RDERABLES Final Result Performing Organization Address City/[facility]/ZIP Co de Phone Number [facility] [address] [place] [address] * Glucose, body fluid (07/22/2025 10:15 AM EST) Glucose, Fluid 115 mg/dL 07/22/2025 1:21 PM EST [facility] Pleural Fluid 07/22/2025 10: 15 AM EST 07/22/2025 12:45 PM EST Narrative [facility] - 07/22/2025 1:21 PM EST [...] O RDERABLES Final Result Performing Organization Address City/[facility]/ZIP Co de Phone Number [address] [address] * XR OUTSIDE IMAGES (06/23/2025 12:11 PM [...] LAB HEMATOLOGY METHOD 06/10/2025 4:48 AM EDT [facility] RBC Count 3.10(L) 3.90 - 5.20 10*6/uL LAB HEMATOLOGY METHOD 06/10/2025 4:48 AM EDT [facility] HGB 8.1(L) 11.2 - 15.7 g/dL LAB HEMATOLOGY METHOD 06/10/2025 4:48 AM EDT [facility] HCT 29.1(L) 34.0 - 45.0 % LAB HEMATOLOGY METHOD 06/10/2025 4:48 AM EDT [facility] Platelet Count 64(L) 155 - 369 10*3/uL LAB HEMATOLOGY METHOD 06/10/2025 4:48 AM EDT [facility] MCV 94 79 - 98 fL LAB HEMATOLOGY METHOD 06/10/2025 4:48 AM EDT [facility] MCH 26.1 26.0 - 32.0 pg LAB HEMATOLOGY METHOD 06/10/2025 4:48 AM EDT [facility] MCHC 27.8(L) 30.7 - 35.5 g/dL LAB HEMATOLOGY METHOD 06/10/2025 4:48 AM EDT [facility] RDW 16.0(H) 11.5 - 14.5 % LAB HEMATOLOGY METHOD 06/10/2025 4:48 AM EDT [facility] MPV 12.1 8.8 - 12.5 fL LAB HEMATOLOGY METHOD 06/10/2025 4:48 AM EDT [facility] nRBC 0.0 <=0.0 per 100 WBCs LAB HEMATOLOGY METHOD 06/10/2025 4:48 AM EDT [facility] Differential Type Automated LAB HEMATOLOGY METHOD 06/10/2025 4:48 AM EDT [facility] Neutrophils % 79 % LAB HEMATOLOGY METHOD 06/10/2025 4:48 AM EDT [facility] Lymphocytes % 9 % LAB HEMATOLOGY METHOD 06/10/2025 4:48 AM EDT [facility] Monocytes % 7 % LAB HEMATOLOGY METHOD 06/10/2025 4:48 AM EDT [facility] Eosinophils % 3 % LAB HEMATOLOGY METHOD 06/10/2025 4:48 AM EDT [facility] Basophils % 1 % LAB HEMATOLOGY METHOD 06/10/2025 4:48 AM EDT [facility] Immature Granulocytes % 1 % LAB HEMATOLOGY METHOD 06/10/2025 4:48 AM EDT [facility] Neutrophils Absolute 5.88 1.60 - 6.10 10*3/uL LAB HEMATOLOGY METHOD 06/10/2025 4:48 AM EDT [facility] Lymphocytes Absolute 0.65(L) 1.20 - 3.90 10*3/uL LAB HEMATOLOGY METHOD 06/10/2025 4:48 AM EDT [facility] Monocytes Absolute 0.47 0.30 - 0.90 10*3/uL LAB HEMATOLOGY METHOD 06/10/2025 4:48 AM EDT [facility] Eosinophils Absolute 0.20 0.00 - 0.50 10*3/uL LAB HEMATOLOGY METHOD 06/10/2025 4:48 AM EDT [facility] Basophils Absolute 0.04 0.00 - 0.10 10*3/uL LAB HEMATOLOGY METHOD 06/10/2025 4:48 AM EDT [facility] Immature Granulocytes Absolute 0.04 0.00 - 0.06 10*3/uL LAB HEMATOLOGY METHOD 06/10/2025 4:48 AM EDT [facility] Blood Venous blood specimen / Unknown Venipuncture / Unknown 06/10/2025 4:24 AM EDT 06/10/2025 4:42 AM EDT Narrative [facility] - 06/10/2025 4:48 AM EDT Therapeutic decision making should be based on absolute values, rather than percentages. us Faiza Nye MD LAB BLOOD ORDERABLES Final Re sult [facility] [address] [place] [address] * (ABNORMAL) Phosphorus, Plasma (06/10/2025 4:24 AM EDT) Only the most recent of11 resultswithin the time period is included. Phosphorus, Plasma 4.6(H) 2.5 - 4.5 mg/dL 06/10/2025 5:09 AM EDT [facility] Blood Venous blood specimen / Unknown Venipuncture / Unknown 06/10/2025 4:24 AM EDT 06/10/2025 4:40 AM EDT Faiza Nye MD LAB BLOOD ORDERABLES Final Re sult Performing Organization Address [facility] Co de Phone Number [facility] [address] [place] [address] * Magnesium, Plasma (06/10/2025 4:24 AM EDT) Only the most recent of11 resultswithin the time period is included. Magnesium, Plasma 2.1 1.9 - 2.4 mg/dL 06/10/2025 5:09 AM EDT [facility] Blood Venous blood specimen / Unknown Venipuncture / Unknown 06/10/2025 4:24 AM EDT 06/10/2025 4:40 AM EDT us Faiza Nye MD LAB BLOOD ORDERABLES Final Re sult Performing Organization Address City/[facility]/ZIP Co de Phone Number [facility] [address] [place] [address] * (ABNORMAL) Comprehensive Metabolic Panel, Plasma (06/10/2025 4:24 AM EDT) Only the most recent of11 resultswithin the time period is included. Glucose, Plasma 165(H) 74 - 99 mg/dL 06/10/2025 5:09 AM EDT [facility] BUN, Plasma 57(H) 7 - 21 mg/dL 06/10/2025 5:09 AM EDT [facility] Creatinine, Plasma 3.74(H) 0.60 - 1.10 mg/dL 06/10/2025 5:09 AM EDT [facility] BUN/Creatinine Ratio 15 06/10/2025 5:09 AM EDT [facility] Sodium, Plasma 136 136 - 145 mmol/L 06/10/2025 5:09 AM EDT [facility] Potassium, Plasma 4.1 3.6 - 4.9 mmol/L 06/10/2025 5:09 AM EDT [facility] Chloride, Plasma 99 97 - 107 mmol/L 06/10/2025 5:09 AM EDT [facility] CO2, Plasma 23 22 - 29 mmol/L 06/10/2025 5:09 AM EDT [facility] Anion Gap 14 6 - 16 mmol/L 06/10/2025 5:09 AM EDT [facility] Total Calcium, Plasma 8.2(L) 8.9 - 10.2 mg/dL 06/10/2025 5:09 AM EDT [facility] Total Protein 5.8(L) 6.3 - 7.9 g/dL 06/10/2025 5:09 AM EDT [facility] Albumin, Plasma 2.7(L) 3.5 - 5.2 g/dL 06/10/2025 5:09 AM EDT [facility] AST, Plasma 9(L) 10 - 35 U/L 06/10/2025 5:09 AM EDT [facility] ALT, Plasma <5(L) 10 - 35 U/L 06/10/2025 5:09 AM EDT [facility] Alkaline Phosphatase, Plasma 166(H) 46 - 142 U/L 06/10/2025 5:09 AM EDT [facility] Total Bilirubin, Plasma 0.4 0.2 - 1.1 mg/dL 06/10/2025 5:09 AM EDT [facility] eGFRcr 13.6 mL/min/1.7 3m*2 06/10/2025 5:09 AM EDT [facility] Comment:Reported eGFRcr in m L/min/1.73m2 is based the CKD-EPI 2020 equation that does not use a race coefficient. Blood Venous blood specimen / Unknown Venipuncture / Unknown 06/10/2025 4:24 AM EDT 06/10/2025 4:40 AM EDT us Faiza Nye MD LAB BLOOD ORDERABLES Final Re sult Performing Organization Address [facility] Co de Phone Number [facility] [address] [place] [address] * (ABNORMAL) POCT glucose meter (06/05/2025 11:54 AM EDT) Only the most recent of6 resultswithin the time period is included. [facility] POCT Glucose 127(H) 74 - 99 mg/dL 06/05/2025 11:56 AM EDT [facility] Comment:Accuracy of a glucos e result [...] Comment 06/05/2025 11:56 AM EDT [facility]ALTH[facility] Guest Service Aide ID John, Milagros 06/05/2025 11:56 AM EDT [facility] Device ID [id number] 06/05/2025 11:56 AM EDT [facility] Specimen Type POC Capillary 06/05/2025 11:56 AM EDT [facility] Blood Capillary blood specimen / Unknown 06/05/2025 11:54 AM EDT 06/05/2025 11:56 AM EDT us Mayra Rogers MD LAB POINT OF CARE TE ST DOCKED DEVICE UNSOLICITED RESULTS Final Result Performing Organization Address [facility] de Phone Number [facility] [address] [place] [address] * Hepatitis B Surface Antibody, Quantitative (06/05/2025 2:21 AM EDT) Only the most recent of2 resultswithin the time period is included. [facility] Hepatitis B Surface Antibody, Quantitative <8.00 NonReactiv e: <8, Grayzone: 8 - <12, Reactive: >= 12 mIU/mL 06/05/2025 5:18 AM EDT [facility] Comment: Nonreactive. Individual is considered not immune to HBV infection. Blood Venous blood specimen / Unknown Venipuncture / Unknown 06/05/2025 2:21 AM EDT 06/05/2025 2:35 AM EDT Mayra Rogers MD LAB BLOOD ORDERABLES Final Resul t Performing Organization Address [facility] Phone Number [facility] [address] [place] [address] * Acute Hepatitis Panel (06/05/2025 2:21 AM EDT) Only the most recent of2 resultswithin the time period is included. Hepatitis B Surf Antigen Negative Negative 06/05/2025 4:43 AM EDT [facility] Hepatitis C Antibody Negative Negative 06/05/2025 4:43 AM EDT [facility] Hepatitis A Antibody IgM Negative Negative 06/05/2025 4:43 AM EDT [facility] Hepatitis B Core Antibody IgM Negative Negative 06/05/2025 4:43 AM EDT [facility] Blood Venous blood specimen / Unknown Venipuncture / Unknown 06/05/2025 2:21 AM EDT 06/05/2025 2:35 AM EDT Mayra Rogers MD LAB BLOOD ORDERABLES Final Resul t Performing Organization Address [facility] Phone Number [facility] [address] [place] [address] * IR Angiogram ArterioVenous Shunt (06/04/2025 2:31 [...] EDT CLINICAL INDICATION: Low flow AVF TECHNIQUE: Copy Manager: Dr. Ferris Secondary Guest Service Aide: None Rad Dose: 3 mGy = Procedure: [...] over a guide wire for a 4 Nigerien micropuncture sheath. The micropuncture sheath was exchanged for a 6 Nigerien vascular sheath. Via the sheath, A stiff [...] a 7 mm x 4 cm conquest ENVIRONMENTAL ATTORNEY balloon with acceptable technical result. Digital subtraction [...] 06/04/2025 CLINICAL INDICATION: Low flow AVF TECHNIQUE: Copy Manager: Dr. Ferris Secondary Guest Service Aide: None Rad Dose: 3 mGy = Procedure: [...] exchangedover a guide wire for a 4 Nigerien micropuncture sheath. The micropuncturesheath was exchanged for a 6 Nigerien vascular sheath. Via the sheath, [place] glide [...] a 7 mm x 4 cm conquest ENVIRONMENTAL ATTORNEY balloon with acceptable technical result.Digital subtraction angiography [...] LAB HEMATOLOGY METHOD 06/03/2025 2:01 PM EDT [facility] HCT 28.6(L) 34.0 - 45.0 % LAB HEMATOLOGY METHOD 06/03/2025 2:01 PM EDT [facility] Blood Venous blood specimen / Unknown Venipuncture / Unknown 06/03/2025 12:43 PM EDT 06/03/2025 2:01 PM EDT us Mayra Rogers MD LAB BLOOD ORDERABLES Final Resul t [facility] [address] [place] [address] * VAS US Hemodialysis Access Left (06/02/2025 [...] is no recent study available for direct [id number] comparison. Unable to complete study due to [...] is no recent study available for direct [id number] comparison. us Faiza Nye MD CV ECHO PROCEDURES Final Resu lt * (ABNORMAL) TSH Reflex FT4 (06/02/2025 4:07 AM EDT) Thyroid Stimulating Hormone, Plasma 23.70(H) 0.40 - 4.20 uIU/mL 06/02/2025 5:37 PM EDT [facility] Blood Venous blood specimen / Unknown Venipuncture / Unknown 06/02/2025 4:07 AM EDT 06/02/2025 4:26 AM EDT Mayra Rogers MD LAB BLOOD ORDERABLES Final Resul t Performing Organization Address City/[facility]/[place] [address] * (ABNORMAL) Free T4, Plasma (06/02/2025 4:07 AM EDT) Only the most recent of2 resultswithin the time period is included. Pathologist [facility] Free T4, Plasma 0.6(L) 0.8 - 1.7 ng/dL 06/02/2025 6:15 PM EDT [facility] Blood Venous blood specimen / Unknown Venipuncture / Unknown 06/02/2025 4:07 AM EDT 06/02/2025 4:26 AM EDT Mayra Rogers MD LAB BLOOD ORDERABLES Final Resul t Performing Organization Address City/[facility]/[place] [address] * SARS-CoV-2, Flu A, Flu B, and RSV - Rapid (06/01/2025 6:53 PM EDT) [facility] SARS CoV-2/COVID-19 RNA PCR Result Not Detected Not Detected 06/01/2025 7:59 PM EDT [facility] Influenza A Virus PCR Result Not Detected Not Detected 06/01/2025 7:59 PM EDT [facility] Influenza B Virus PCR Result Not Detected Not Detected 06/01/2025 7:59 PM EDT [facility] Respiratory Syncytial Virus (RSV) PCR Result Not Detected Not Detected 06/01/2025 7:59 PM EDT [facility] Swab Nasopharyngeal structure / Unknown Non-blood Collection / Unknown 06/01/2025 6:53 PM EDT 06/01/2025 7:02 PM EDT Narrative [facility] - 06/01/2025 7:59 [...] OR DERABLES Final Result Performing Organization Address City/[facility] Co de Phone Number [facility] [address] [place] [address] * Blood Culture (Aerobic/Anaerobet Set) (06/01/2025 6:52 PM EDT) Only the most recent of2 resultswithin the time period is included. Culture No growth at day 5 06/06/2025 8:01 PM EDT [facility] Blood Structure of right hand / Unknown Venipuncture / Unknown 06/01/2025 6:52 PM EDT 06/01/2025 7:03 PM EDT Narrative [facility] - 06/06/2025 8:01 PM EDT Low blood volume submitted, results may be compromised Faiza Nye MD LAB MICROBIOLOGY - GENERAL OR DERABLES Final Result Performing Organization Address [facility] Co de Phone Number [facility] [address] [place] [address] * XR Chest 1 View (06/01/2025 5:10 [...] ECG Atrial Rate 48 BPM MUSE ECG NC Interval 154 ms MUSE ECG QRSD Interval 114 ms MUSE ECG QT Interval 478 ms MUSE ECG QTC Interval 427 ms MUSE ECG P [place] 54 degrees MUSE ECG R [place] 116 degrees MUSE ECG T Wave [place] -12 degrees MUSE ECG Diagnosis Sinus bradycardia with premature atrial complexes with aberrant conduction MUSE ECG Diagnosis Low voltage QRS MUSE ECG Diagnosis Possible , old Anterior infarct MUSE ECG Diagnosis Left posterior fascicular block MUSE ECG Diagnosis Nonspecific T wave abnormality MUSE ECG Diagnosis Abnormal ECG MUSE ECG Diagnosis MUSE ECG Diagnosis Confirmed by Michael Garner ([id number]) on 06/02/2025 10:26:53 AM MUSE ECG 06/01/2025 4:57 PM EDT 06/02/2025 10:26 AM EDT us Klarissa Vinson DO ECG ORDERABLES Final Result Performing Organization Address City/[facility]/ZIP Co de Phone Number MUSE ECG * (ABNORMAL) BNP (06/01/2025 4:47 PM EDT) N-Terminal, PROBNP, Plasma >70,000(H) 0 - 899 pg/mL 06/01/2025 10:34 PM EDT [facility] Blood Venous blood specimen / Unknown Venipuncture / Unknown 06/01/2025 4:47 PM EDT 06/01/2025 4:53 PM EDT us Faiza Nye MD LAB BLOOD ORDERABLES Final Re sult [facility] [address] [place] [address] * (ABNORMAL) CBC (06/01/2025 4:47 PM EDT) WBC Count 6.37 3.70 - 10.30 10*3/uL LAB HEMATOLOGY METHOD 06/01/2025 5:00 PM EDT [facility] RBC Count 3.11(L) 3.90 - 5.20 10*6/uL LAB HEMATOLOGY METHOD 06/01/2025 5:00 PM EDT [facility] HGB 8.6(L) 11.2 - 15.7 g/dL LAB HEMATOLOGY METHOD 06/01/2025 5:00 PM EDT [facility] HCT 30.3(L) 34.0 - 45.0 % LAB HEMATOLOGY METHOD 06/01/2025 5:00 PM EDT [facility] Platelet Count 46(L) 155 - 369 10*3/uL LAB HEMATOLOGY METHOD 06/01/2025 5:00 PM EDT [facility] MCV 97 79 - 98 fL LAB HEMATOLOGY METHOD 06/01/2025 5:00 PM EDT [facility] MCH 27.7 26.0 - 32.0 pg LAB HEMATOLOGY METHOD 06/01/2025 5:00 PM EDT [facility] MCHC 28.4(L) 30.7 - 35.5 g/dL LAB HEMATOLOGY METHOD 06/01/2025 5:00 PM EDT [facility] RDW 15.4(H) 11.5 - 14.5 % LAB HEMATOLOGY METHOD 06/01/2025 5:00 PM EDT [facility] MPV LAB HEMATOLOGY METHOD 06/01/2025 5:00 PM EDT [facility] Comment:Not Measured nRBC 0.0 <=0.0 per 100 WBCs LAB HEMATOLOGY METHOD 06/01/2025 5:00 PM EDT [facility] Blood Venous blood specimen / Unknown Venipuncture / Unknown 06/01/2025 4:47 PM EDT 06/01/2025 4:53 PM EDT us Klarissa Vinson DO LAB BLOOD ORDERABLES Final Re sult [facility] [address] [place] [address] * (ABNORMAL) Blood gas panel, venous (06/01/2025 4:47 PM EDT) Only the most recent of2 resultswithin the time period is included. pH, Venous 7.34 7.32 - 7.43 LAB HEMATOLOGY METHOD 06/01/2025 4:54 PM EDT [facility] pCO2, Venous 51 37 - 52 mmHg LAB HEMATOLOGY METHOD 06/01/2025 4:54 PM EDT [facility] pO2, Venous 39 25 - 40 mmHg LAB HEMATOLOGY METHOD 06/01/2025 4:54 PM EDT [facility] SO2, Measured, Venous 66 65 - 80 % LAB HEMATOLOGY METHOD 06/01/2025 4:54 PM EDT [facility] Base Excess, Venous 1.5 -2.0 - 3.0 mmol/L LAB HEMATOLOGY METHOD 06/01/2025 4:54 PM EDT [facility] Bicarbonate, Calculated, Venous 28(H) 22 - 26 mmol/L LAB HEMATOLOGY METHOD 06/01/2025 4:54 PM EDT [facility] Hematocrit, Whole Blood 26.2(L) 34.0 - 45.0 % LAB HEMATOLOGY METHOD 06/01/2025 4:54 PM EDT [facility] Sodium, Whole Blood 138 136 - 145 mmol/L LAB HEMATOLOGY METHOD 06/01/2025 4:54 PM EDT [facility] Potassium, Whole Blood 3.3(L) 3.6 - 4.9 mmol/L LAB HEMATOLOGY METHOD 06/01/2025 4:54 PM EDT [facility] Chloride, Whole Blood 96(L) 97 - 107 mmol/L LAB HEMATOLOGY METHOD 06/01/2025 4:54 PM EDT [facility] Glucose, Whole Blood 158(H) 74 - 99 mg/dL LAB HEMATOLOGY METHOD 06/01/2025 4:54 PM EDT [facility] Lactate, Venous, Whole Blood 0.8 0.5 - 2.2 mmol/L LAB HEMATOLOGY METHOD 06/01/2025 4:54 PM EDT [facility] Ionized Calcium, Whole Blood 4.5(L) 4.6 - 5.1 mg/dL LAB HEMATOLOGY METHOD 06/01/2025 4:54 PM EDT [facility] Blood Venous blood specimen / Unknown Venipuncture / Unknown 06/01/2025 4:47 PM EDT 06/01/2025 4:53 PM EDT us Klarissa Vinson DO LAB BLOOD ORDERABLES Final Re sult [facility] [address] [place] [address] * Quantiferon TB Gold (05/06/2025 4:22 PM EDT) Quantiferon TB Gold Plus Result Negative Negative 05/07/2025 8:11 PM EDT [facility] TB Nill Value 0.0799 IU/mL 05/07/2025 8:11 PM EDT [facility] TB Antigen 1 -0.0075 IU/mL 05/07/2025 8:11 PM EDT [facility] TB Antigen 2 0.0026 IU/mL 05/07/2025 8:11 PM EDT [facility] TB Mitogen 9.9201 IU/mL 05/07/2025 8:11 PM EDT [facility] Blood Venous blood specimen / Unknown Venipuncture / Unknown 05/06/2025 4:22 PM EDT 05/06/2025 4:56 PM EDT Narrative [facility] - 05/07/2025 8:11 PM EDT Responses to the Mitogen positive control and occasionally to TB antigen can be above the assay range. For calculation purposes: IFN-gamma values > 10 IU/mL are handled as 10 IU/mL. us Sumi Land MD LAB BLOOD ORDERABLES Final Res ult [facility] [address] [place] [address] * (ABNORMAL) BMP (05/06/2025 1:25 PM EDT) Pathologist [facility] Glucose, Plasma 174(H) 74 - 99 mg/dL 05/06/2025 1:50 PM EDT [facility] BUN, Plasma 74(H) 7 - 21 mg/dL 05/06/2025 1:50 PM EDT [facility] Creatinine, Plasma 5.20(H) 0.60 - 1.10 mg/dL 05/06/2025 1:50 PM EDT [facility] BUN/Creatinine Ratio 14 05/06/2025 1:50 PM EDT [facility] Sodium, Plasma 136 136 - 145 mmol/L 05/06/2025 1:50 PM EDT [facility] Potassium, Plasma 3.4(L) 3.6 - 4.9 mmol/L 05/06/2025 1:50 PM EDT [facility] Chloride, Plasma 96(L) 97 - 107 mmol/L 05/06/2025 1:50 PM EDT [facility] CO2, Plasma 20(L) 22 - 29 mmol/L 05/06/2025 1:50 PM EDT [facility] Anion Gap 20(H) 6 - 16 mmol/L 05/06/2025 1:50 PM EDT [facility] Total Calcium, Plasma 7.0(L) 8.9 - 10.2 mg/dL 05/06/2025 1:50 PM EDT [facility] eGFRcr 9.2 mL/min/1.7 3m*2 05/06/2025 1:50 PM EDT [facility] Comment:Reported eGFRcr in m L/min/1.73m2 is based the CKD-EPI 2020 equation that does not use a race coefficient. Blood Venous blood specimen / Unknown Venipuncture / Unknown 05/06/2025 1:25 PM EDT 05/06/2025 1:27 PM EDT us Sena Navarro MD LAB BLOOD ORDERABLES Final Resu lt [facility] [address] [place] [address] * Type and screen (05/05/2025 4:24 PM [...] TEST ORDERABLES Final Result Performing Organization Address [facility]/ZIP Co de Phone Number BLOOD BANK [address] [place] [address], * (ABNORMAL) Thyroid Stimulating Hormone, Plasma (05/05/2025 4:24 PM EDT) Thyroid Stimulating Hormone, Plasma 12.22(H) 0.40 - 4.20 uIU/mL 05/05/2025 4:57 PM EDT [facility] Blood Venous blood specimen / Unknown Venipuncture / Unknown 05/05/2025 4:24 PM EDT 05/05/2025 4:29 PM EDT Narrative [facility] - 05/05/2025 4:57 PM EDT Trimester Specific Ranges TSH ( IU/mL) 1st Trimester 0.1 - 3.0 2nd Trimester 0.19 - 4.06 3rd Trimester 0.3 - 3.7 us Adalberto Feliz MD LAB BLOOD ORDERABLES Final Res ult Performing Organization Address City/[facility]/ZIP Co de Phone Number [facility] [address] [place] [address] * (ABNORMAL) Hemoglobin A1c (06/30/2024 11:32 AM EDT) Hemoglobin A1c 5.7(H) <5.7 % 06/30/2024 1:16 PM EDT [facility] Blood Venous blood specimen / Unknown Venipuncture / Unknown 06/30/2024 11:32 AM EDT 06/30/2024 12:28 PM EDT Narrative [facility] - 06/30/2024 1:16 PM EDT HA1C Interpretive Data: Diagnosis of Diabetes: Diabetic > or = 6.5% Pre-diabetic 5.7 to 6.4% Non-diabetic < or = 5.6% Glycemic Targets for Type I and Type II Diabetics: Non- Adults <7.0% Adults <6.0% Children and Adolescents <7.5% Source: [place] [employer]. Standards of medical care in diabetes,2017. Diabetes Care.2017:40 (suppl 1):S1-S135. HbA1c assay performed by an ion-exchange chromatography method that is certified traceable to the DCCT. us Jemal Nolan MD LAB BLOOD ORDERABLES Final Resul t [facility] [address] [place] [address] * ED HIV 1/2 Antibody/Antigen Screen w/Reflex to HIV 1/2 Differentiation (06/21/2024 4:48 PM EDT) HIV 1 & 2 Antibody/Antigen Screen Non Reactive Non Reactive 06/21/2024 6:09 PM EDT [facility] Comment:Screening for HIV 1 & 2 antibodies, and P24 antigen is NONREACTIVE. No confirmatory testing is required. Blood Venous blood specimen / Unknown Venipuncture / Unknown 06/21/2024 4:48 PM EDT 06/21/2024 5:26 PM EDT us Douglas Thurman MD LAB BLOOD ORDERABLES Final Resul t [facility] [address] [place] [address] from Last 3 Months or Most Recently [...] Patient has decision-making capacity? Yes Care Teams Metal Sprayer Production Relationship Specialty Start Date End Date Rosemarie Riley, MUSIC THEORY TEACHER [address] [place] [address] PCP - General 04/02/25 Baylee Gracia, RN Registered Nurse 06/12/25
--- OUTSIDE RECORDS SUMMARY | 2025-07-29 12:07 | XMS_ITS ---
Care Plan Created on: July 29, 2025 Mar Waldron : 1970 Sex: Female Author Organization [facility] Address [address] [place] [address] Care Team Providers Care Life Science Teacher Name Role Phone Rosemarie Riley APRN Primary Care Provider [phone] Baylee Gracia RN Unavailable Unavailable Active Problems [...] care planning and utilize ACP tools within [facility] for discussion and documentation. 06/19/2025 Educate [...] more information about heart disease, visit The [place] [employer]'s website at https://www.heart.org/en/health-topics 06/19/2025 Encourage [...] information about heart disease , visit The [place] [employer]'s website at https://www.heart.org/en/health-topics; Encourage patient [...] care planning and utilize ACP tools within [facility] for discussion and documentation.; Educate patient on trajectory of chronic illness; Educate patient on potential treatments for each stage; Educate patient regarding symptoms with end stage heart failure; Educate patient on stages of heart failure
--- OUTSIDE RECORDS SUMMARY | 2025-07-29 12:07 | XMS_ITS | Encounter Summary ---
Author Organization [facility] Address [address] [place] [address] Care Team Providers Care Circulation Analyst Name Role Phone RileyRosemarie beach Shanel WILSON Primary Care Provider [phone] Baylee Gracia RN Unavailable Unavailable Reason for Visit * Reason Comments HRCM Encounter Details Date Type Department Care Team ([facility] Contact Info) Description 07/16/2025 Patient Outreach POPULATION HEALTH [address], [address] [place] [address] Baylee Gracia, RN HRCM Social [...] any time in the past 12 m [facility], were you homeless or living in a long term (including now)? No 06/03/2025 [facility] Utilities Answer Date Recorded In the [...] drink first t jacqueline in the morning (EYE-MISSION PLANNER) to steady your nerves or to get [...] Upcoming Encounters Date Type Department Care Team ([facility] st Contact Info) Description 08/20/2025 12:00 PM EST Office Visit [facility] [place] [address], [address] [place] [address] Kaiden Harvey MD [address] [place] [address] 11/06/2025 9:15 AM EST Office Visit [facility] [address], [address] [place] [address] Joanna Bartlett MD [address] [facility] [address] [place] [address] documented as of this encounter [...] documented as of this encounter Care Teams Circulation Analyst Relationship Specialty Start Date End Date Rosemarie Riley APRN [address] [place] [address] PCP - General 04/02/25 Baylee Gracia RN Registered Nurse 06/12/25 documented as of this encounter
--- OUTSIDE RECORDS SUMMARY | 2025-07-29 12:07 | XMS_ITS ---
Author Organization [facility] Address [address] [place] [address] Care Team Providers Care Gis Programmer Name Role Phone Rosemarie Riley APRN Primary Care Provider [phone] Baylee Gracia RN Unavailable Unavailable LINK Program Status:Closed (Closed) Start date:06/03/2025 Enrollment reason:Identified using hospital discharge data End date:06/25/2025 Close reason:Not Eligible Overview This episode type is for outpatient care managers enrolling patients in the CMS LINK program. Continued Care and Services Coordination
--- OUTSIDE RECORDS SUMMARY | 2025-07-29 12:07 | XMS_ITS ---
Author Organization [facility] Address [address] [place] [address] Care Team Providers Care Damper Maker Name Role Phone Rosemarie Riley APRN Primary Care Provider [phone] Baylee Gracia RN Unavailable Unavailable High Risk Care Management Status:Identified (Enrolling) Start date:06/12/2025 Enrollment reason:Identified using hospital discharge data Overview This is a Population Health program aimed at increasing positive outcomes for high-risk patients. Case Team Name Relationship Phone Baylee Gracia RN(Responsible Staff) Registered Nurse Continued Care and Services Coordination
--- OUTSIDE RECORDS SUMMARY | 2025-07-29 12:07 | XMS_ITS | Encounter Summary ---
Author Organization [facility] Address [address] [place] [address] Care Team Providers Care [employer] Truck Driver Name Role Phone RosemaryRosemarie Shanel WILSON Primary Care Provider [phone] Haydee Mccloud Unavailable Unavailable Baylee Gracia RN Unavailable Unavailable Reason for Visit * Reason Comments TCM Encounter Details Date Type Department Care Team (Late st Contact Info) Description 06/17/2025 Patient Outreach POPULATION HEALTH [address], [address] [place] [address] Baylee Gracia, RN TCM Social [...] in a halfway (including now)? No 06/03/2025 [facility] Utilities Answer Date Recorded In the [...] drink first t jacqueline in the morning (EYE-FRUIT PRESS OPERATOR) to steady your nerves or to [...] Description 08/20/2025 12:00 PM EST Office Visit [facility] [place] [address] [place] [address], [address] [place] [address] Kaiden Harvey MD [address] [place] [address] [place] [address] 11/06/2025 9:15 AM EST Office Visit [facility] [address], [address] [place] [address] Joanna Bartlett MD [address] [facility] [address] [place] [address] documented as of this encounter Visit Diagnoses Not on filedocumented in this encounter Additional Health Concerns Assessment Noted Time A Body Mass Index follow-up plan has been documented for the patient 06/10/2025 2:59 PM EDT documented as of this encounter Care Teams Regional [employer] Truck Driver Relationship Specialty Start Date End Date Rosemarie Riley APRN [address] [place] [address] PCP - General 04/02/25 Haydee Mccloud Community Service Representative Mud Plant Operator 06/03/25 06/25/25 Baylee Gracia, RN Registered Nurse 06/12/25 documented as of this encounter
--- OUTSIDE RECORDS SUMMARY | 2025-07-29 12:07 | XMS_ITS | Data Portability ---
Author Organization [facility] [employer] [facility] Address [address] [place] [address] Assessment No assessment recorded. Plan of Treatment Reminders Order Date Submit Date Provider Last Modified By Organization Details Last Modified Time Details Appointments FOLLOW UP 30 2024 11:30A M Valeriy Riley APRN Not available Not available Not available Lab HbA1c (hemoglob in A1c), blood [address], [address], 05/07/2025 15:34:24 Referral podiatris t referral [address] [facility], [address], [place], [address], 07/08/2025 16:10:31 endocrino logy referral - DM 2 and hypothyro idism - SCHEDULE WITH DR REID 2024 025 [facility] Zakiya Reid MD, [address], [place], [address], 07/23/2025 11:16:55 home health referral - Right buttock decub 2024 025 [place] [address] [facility], [address], [place], [address], 06/19/2025 15:45:35 physical therapist referral 2024 025 [facility], [address], [place], [address], 06/19/2025 15:45:34 pain managemen t referral - ALICE please [address] [facility], [address], [address], [place], [address], 07/10/2025 13:36:24 cardiolog ist referral - CAD s/p 3 vessel CABG with profound cardiac murmur [address] [facility], [address], [place], [address], 07/10/2025 09:43:50 Procedures None recorded. Surgeries None recorded. Imaging None recorded. Medication Orders Lomotil 2.5 mg-0.025 mg tablet 2024 025 [facility], [address] [place] [address], [address], 05/07/2025 15:34:22 Patient TargetsNo targets recorded. Patient InstructionsNo instructions recorded. Reason for Referral Physical Therapist Referral for Abnormal gait Referring Physician: Family Maddy Mckeon, Encounter Date: 05/07/2025 Home Health Referral for Pre ssure injury of right buttock stage II Right buttock decub Referring Physician: Family Mike Medicine, Encounter Date: 05/07/2025 Rural [facility] Consultant Referral for Co ronary arteriosclerosis CAD s/p 3 vessel CABG with profound cardiac murmur Referring Physician: Family Maddy Mckeon, Encounter Date: 05/07/2025 [employer]k Screen Printer Referral for Type 2 diabetes mellitus Referring [...] n A1c), blood HbA1c 5.0 Not Available [address], [address], 05/07/2025 13:53:21 Result Notes None recorded. Problems Name Problem SNOMED Code Status Onset Date Resolution Date Notes Provider Name and Address Organization Details Recorded Time Coronary arterioscle rosis 69995866 Active 2024 Rosemarie Riley APRN [address] [place] [address], [address], [employer] 13:58:19 Type 2 diabetes mellitus 69634117 Active 2024 Rosemarie Riley APRN [address] [place] [address], [address], [employer] 13:59:15 Essential hypertensio n 79741198 Active 2024 Rosemarie Riley APRN [address] [place], [address], [employer] 13:59:31 Complex regional pain syndrome type I of bilateral lower limbs 7661362271219 07 Active 2024 Rosemarie Riley APRN [address] [place], [address], [employer] 14:00:04 Moderate recurrent major depression 16350574 Active 2024 Rosemarie Riley APRN [address] [place], [address], [employer] 14:00:29 Acquired hypothyroid ism 494014477 Active 2024 Rosemarie Riley APRN [address] [place], [address], [employer] 14:00:44 Pressure injury of right buttock stage II Active 2024 Rosemarie Riley APRN [address] [place] [address], [address], [employer] 14:21:25 Abnormal gait 11616435 Active 2024 Rosemarie Riley APRN [address] [place] [address], [address], [employer] 14:21:47 Complete blindness of left eye 940544552 Active 2024 Rosemarie Riley APRN [address] [place] [address], [address], [employer] 14:23:27 Chronic diarrhea 477861418 Active 2024 Rosemarie Riley APRN [address] [place] [address], [address], [employer] 14:24:37 Heart murmur 32838174 Active 2024 Rosemarie Riley APRN [address] [place] [address], [address], [employer] 14:26:27 Pancytopeni a 306085295 Active 2024 Rosemarie Riley APRN [address] [place] [address], [address], [employer] 17:38:46 Chronic hypoxemic respiratory failure 683716112 Active 2024 Rosemarie Riley APRN [address] [place] [address], [address], [employer] 11:53:35 Chronic kidney disease mineral and bone disorder 511830982 Active 2024 Rosemarie Riley APRN [address] [facility], [place], [address], [employer] 22:20:50 Problem Notes None recorded. Procedures Surgical History Date Name Laterality Status Provider Name and Address Organization Details Recorded Time 4 coronary artery bypass grafts x 3 completed LESLIE SHANE [employer] 05/07/2025 13:52:30 Imaging Results None recorded. Procedure Notes None recorded. Medical Equipment None Reported. Allergies Allergen ID Allergen Name Allergen Category Reaction Reaction Severity Criticality Documentation Date Start Date Code Code System Note Provider Name and Address Organization Details Recorded Time 29748 Basaglar medicatio n Not available Not available Not available 05/07/2025 32811 59 RxNorm LESLIE SHANE [employer], [employer] 13:45:00 01540 lisinopri l medicatio n Not available Not available Not available 05/07/2025 73200 RxNorm LESLIE SHANE [employer], [employer] 13:45:08 Medications Name Sig Start Date [...] Address Organization Details Last Updated DateTime 5 75131.4 4 g 98 [degF] 55 /min 92 % 92 % 139/44 mm[Hg] [employer] 5 13:35:25 Date Recorded Body weight Body temperature Heart rate Oxygen saturation Oxygen saturation in Arterial blood by Pulse oximetry Systolic And Diastolic Provider Name and Address Organization Details Last Updated DateTime 5 91905.9 7 g 97 [degF] 52 /min 89 % 89 % 113/59 mm[Hg] [employer] 5 11:23:49 Social History Question Answer Notes LastModified by Organizat ion Details LastModified Time Tobacco Smoking Status Former Smoker AAKASH [facility] [employer] 05/24/2025 11:24:54 What Was The Date [...] History Nothing Reported. Medical History Condition Response Muscle, Joint, or Bone Problems Y Acid Reflux (GERD) Y Dialysis Y Kidney Disease Y Heart Problems Y Thyroid Problems Y Diabetes Y Reflux/GERD Y Heart Disease Y Gynecological HistoryNo gynecological history recorded. Obstetrics History GPAL:G 0 P 0 0 0 0 Immunizations Vaccine Type Date Status Note Provider Nam e and Address Organization Details Recorded Time Hep B, adult 7 completed Not Available Pending sale to [facility] 05/24/2025 11:14:45 Influenza, split virus, trivalent, preservative 3 completed Not Available Pending sale to [facility] 05/24/2025 11:14:45 influenza, seasonal, intradermal, preservative free 4 completed Not Available Pending sale to [facility] 05/24/2025 11:14:45 Td(adult) unspecified formulation 6 completed Not Available Pending sale to [facility] 05/24/2025 11:14:45 Past Encounters Encounter ID Performer Location Encounter Start Date Encounter Closed Date Diagnosis/Indication Diagnosis SNOMED-CT Code Diagnosis ICD10 Code Diagnosis IMO Codes Diagnosis Note [id number] Rosemarie Riley APRN [address] [address] 05/07/2025 12:38:03 05/07/2025 14:44:03 Coronary arteriosclerosis 13170657 I25.10 2171577 Referred to cardiology Type 2 hardik betes mellitus 86776710 E11.22 N18.6 Z99.2 69268462 We will begin home health for nursing care for the decubitus ulcer and physical therapy. We will refer her to be zaynab lazcano with chronic pain management , cardiology , diabetic footcare, and endocrinol fiordaliza. We will obtain her lab work that was done yesterday at the [facility]. Will obtain a stool specimen for GI PCR. We will do a trial of Lomotil short-term for the diarrhea. I am unsure why she is not taking Renagel as she is on dialysis. We will follow-up with her in 2 weeks. Healthy nutrition and hydration and her renal diet was explained to both her and her son. Essential hypertension 59426128 I10 42942 Complex re gional pain syndrome type I of bilateral lower limbs 7898560642 18805 G90.523 63786204 Refer to pain management she has been taking oxycodone scheduled for over 20 years. Moderate r ecurrent major depression 70721138 F33.1 68178153 Continue lexapro Acquired hypothyroidism 779952962 E03.9 03109 Referred to endocrinol fiordaliza Pressure i njury of right buttock stage II 0702291700 5105 L89.312 6387250797 Begin home health for wound care and physical therapy Abnormal gait 22174038 R 26.81 903876 Obtain rollator walker. She does have a wheelchair and a bedside commode. Complete b lindness of left eye 543898932 H54.42A5 4798832377 Chronic diarrhea 9013949 09 K52.9 88857 Heart murmur 53904965 R0 1.1 06622 Will need echo when she establishe s with cardiology . [id number] Rosemarie Riley[place] 7365211[address] 05/24/2025 11:11:09 05/24/2025 15:00:44 Pancytopenia 307750001 D61.818 73770 Pressure i njury of right buttock stage II 2716672003 5105 L89.312 2584157756 Begin home health for wound care and physical therapy Chronic ki dney disease mineral and bone disorder 409483347 N18.5 E83.9 M89.9 Z99.2 1784670201 Health Concerns Section Related Observation LastModified by Organization Detai ls LastModified Time None Recorded Concern Status LastModified by Organization Details LastModified Time None Recorded Advance Directives Directive None Recorded Payers Insurance Date Sequence Insurance Name Policy Number Policy Araujo Covered Member ID Araujo Member ID Guarantor Name 07/28/2025 1 [employer] - GOLD PLUS (MEDICARE REPLACEMENT/AD VANTAGE - HMO) Mar Waldron [id number] Mar Waldron 05/07/2025 1 *SELF PAY* Kathya Waldron 07/20/2025 [place] [employer] [facility] Mar Waldron [id number] Mar Waldron Notes Date Note Type Note Provider Name and Address Organization Details Recorded Time 05/07/2025 text/html ROS as noted in the HPI Mar presents with her son via wheelchair to establish care. Her son went to [place] where she was living to bring her [...] years. She was dialyzed yesterday at the [facility] and will be dialyzed at [facility] tomorrow. Send she has a stage [...] to ambulate without assistance. Her son and dqionhyk-pe-frc are assisting her with bathing and transitioning [...] significant weight loss. Rosemarie Riley APRN [address] [place], [address], [employer] 05/07/2025 15:36:28 05/24/2025 text/html ROS as noted in the HPI The patient presents via wheelchair with her son and ehqyqhpr-xx-dbt for hospital follow-up. She was admitted to the [facility] for pancytopenia. Dehydration. Chronic kidney disease on dialysis, and a decubitus ulcer on her buttock with failure to thrive. She is continuing dialysis as an outpatient. Her son and kwwvxziu-nl-dxy have been dressing the wound appropriately and it is healing well. They are continuing pressure relief techniques. Mar has issues with chronic pain and she has an appointment to establish with a chronic pain clinic and also follow-up with nephrology and a service plumber. Home health was previously ordered but her son has not completed transition of her Medicare from a [place] plan to a [place] plan. Rosemarie Riley APRN [address] [facility], [place], [address], [employer] 06/20/2025 22:21:11 OBGyn Episode No OBEpisode recorded.
--- OUTSIDE RECORDS SUMMARY | 2025-07-29 12:07 | XMS_ITS | Encounter Summary ---
Author Organization [facility] Address [address] [place] [address] Care Team Providers Care Theology Teacher Name Role Phone RosemaryRosemarie Shanel WILSON Primary Care Provider [phone] Haydee Mccloud Unavailable Unavailable Baylee Gracia RN Unavailable Unavailable Reason for Visit * Reason Comments TCM Encounter Details Date Type Department Care Team (Late st Contact Info) Description 06/17/2025 Patient Outreach [facility] [address], [address] [place] [address] Baylee Gracia, RN TCM Social [...] any time in the past 12 m [facility], were you homeless or living in a senior living (including now)? No 06/03/[address] [facility] Utilities Answer Date Recorded In the [...] drink first t jacqueline in the morning (EYE-REGISTRAR COLLEGE OR UNIVERSITY) to steady your nerves or to get [...] seen. RN confirmed with Dr. Becker in [facility] she is being seen on 06/18/2025. Rn provided pain interventions for patient and son. RN to fu with patient for HRCM needs. documented in this encounter Plan of Treatment Upcoming Encounters Date Type Department Care Team (Late st Contact Info) Description 08/20/2025 12:00 PM EST Office Visit [facility] [place] [address], [address] [place] [address] Kaiden Harvey MD [address] [place] [address] 11/06/2025 9:15 AM EST Office Visit [facility] [place] [address] , [address] [place] [address] Joanna Bartlett MD [address] [place] [address] documented as of this encounter Visit Diagnoses Not on filedocumented in this encounter Additional Health Concerns Assessment Noted Time A Body Mass Index follow-up plan has been documented for the patient 06/10/2025 2:59 PM EDT documented as of this encounter Care Teams Theology Teacher Relationship Specialty Start Date End Date Rosemarie Riley APRN [address] [place] [address] PCP - General 04/02/25 Haydee Mccloud Cinnamon Grinder Gizzard Peeler 06/03/25 06/25/25 Baylee Gracia, RN Registered Nurse 06/12/25 documented as of this encounter
--- OUTSIDE RECORDS SUMMARY | 2025-07-29 12:07 | XMS_ITS | Encounter Summary ---
Author Organization [facility] Address [address] [place] [address] Care Team Providers Care Senior Web Architect Name Role Phone RileyRosemarie beach Shanel WILSON Primary Care Provider [phone] Baylee Gracia RN Unavailable Unavailable Reason for Visit * Reason Comments HRCM Encounter Details Date Type Department Care Team ([facility] Contact Info) Description 07/10/2025 Patient Outreach [facility] [address], [address] [place] [address] Baylee Gracia, RN HRCM Social [...] and Family Not on file 06/25/2024 Attends Sab[employer] Services Not on file 06/25 Active Member [...] any time in the past 12 m [facility], were you homeless or living in a fci (including now)? No 06/03/2025 [facility] Utilities Answer Date Recorded In the [...] drink first t jacqueline in the morning (EYE-CDL B DRIVER) to steady your nerves or to [...] Description 08/20/2025 12:00 PM EST Office Visit [facility] [place] [address], [address] [place] [address] Kaiden Harvey MD [address] [place] [address] 11/06/2025 9:15 AM EST Office Visit [facility] [address], [address] [place] [address] Joanna Bartlett MD [address] [facility] [address] [place] [address] documented as of this encounter [...] as of this encounter Care Teams Senior Web Architect Relationship Specialty Start Date End Date Rosemarie Riley APRN [address] [place] [address] PCP - General 04/02/25 Baylee Gracia RN Registered Nurse 06/12/25 documented as of this encounter
--- OUTSIDE RECORDS SUMMARY | 2025-07-29 12:08 | XMS_ITS | Encounter Summary ---
Author Organization [facility] Address [address] [place] [address] Care Team Providers Care Compensation And Benefits Analyst Name Role Phone RosemaryRosemarie Shanel WILSON Primary Care Provider [phone] Haydee Mccloud Unavailable Unavailable Reason for Visit * Reason Comments Link Encounter Details Date Type Department Care Team ([facility] st Contact Info) Description 06/03/2025 Patient Outreach [facility] [address], [address] [place] [address] Wendie De Leon Social History [...] time in the past 12 m [facility], were you homeless or living in a residential (including now)? No 06/03/2025 [facility] Utilities Answer Date Recorded In the [...] drink first t jacqueline in the morning (EYE-COOLER SERVICE SUPERVISOR) to steady your nerves or to [...] she comes home from the hospital or [facility]. He stated he will speak with his brother before they decide. Advised him thatif they choose to enroll that it would be a good idea for one of them to be present for the home visit. documented in this encounter Plan of Treatment Upcoming Encounters Date Type Department Care Team (Late st Contact Info) Description 08/20/2025 12:00 PM EST Office Visit [facility] [place] [address], [address] [place] [address] Kaiden Harvey MD [address] [place] [address] 11/06/2025 9:15 AM EST Office Visit [facility] [place] [address], [address] [place] [address] Joanna Bartlett MD [address] [facility] [address] [place] [address] documented as of this encounter Visit Diagnoses Not on filedocumented in this encounter Additional Health Concerns Assessment Noted Time A Body Mass Index follow-up plan has been documented for the patient 06/10/2025 2:59 PM EDT documented as of this encounter Care Teams Compensation And Benefits Analyst Relationship Specialty Start Date End Date Rosemarie Riley APRN [address] [id number] PCP - General 04/02/25 Haydee Mccloud Stunner Animal Oral Surgery Assistant 06/03/25 06/25/25 documented as of this encounter
--- OUTSIDE RECORDS SUMMARY | 2025-07-29 12:08 | XMS_ITS | Encounter Summary ---
Author Organization [facility] Address [address] [place] [address] Care Team Providers Care Gas Welding Machine Operator Name Role Phone RosemaryRosemarie Shanel WILSON Primary Care Provider [phone] Haydee Mccloud Unavailable Unavailable Encounter Details Date [...] time in the past 12 m [facility], were you homeless or living in a jail (including now)? No 06/03/2025 [facility] Utilities Answer Date Recorded In [...] drink first t jacqueline in the morning (EYE-THERAPIST ASST) to steady your nerves or to get [...] Description 08/20/2025 12:00 PM EST Office Visit [facility] [place] [address], [address] [place] [address] Kaiden Harvey MD [address] [facility] [address] [place] [address] 11/06/2025 9:15 AM EST Office Visit [facility] [address], [address] [place] [address] Joanna Bartlett MD [address] [address] [place] [address] documented as of this encounter Visit Diagnoses Not on filedocumented in this encounter Additional Health Concerns Assessment Noted Time A Body Mass Index follow-up plan has been documented for the patient 06/10/2025 2:59 PM EDT documented as of this encounter Care Teams Gas Welding Machine Operator Relationship Specialty Start Date End Date Rosemarie Riley APRN [facility] [place] [address] PCP - General 04/02/25 Haydee Mccloud Park Keeper Research Animal Facility Supervisor 06/03/25 06/25/25 documented as of this encounter
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
--- OUTSIDE RECORDS SUMMARY | 2025-07-29 12:08 | XMS_ITS | Encounter Summary ---
Author Organization [facility] Address [address] [place] [address] Care Team Providers Care Mill Worker Name Role Phone RileyRosemarie beach STEVE Primary Care Provider [phone] Haydee Mccloud Unavailable Unavailable Baylee Gracia RN Unavailable Unavailable Encounter Details Date Type Department Care Team (Late st Contact Info) Description 06/12/2025 Referral Triage [facility] [address] [facility] [facility], [address] [place] [address] Baylee Gracia, RN Social History [...] and Family Not on file 06/25/2024 Attends Jew Services Not on file 06/25 Active Member [...] in a intermediate (including now)? No 06/03/2025 [facility] Utilities Answer Date Recorded In [...] drink first t jacqueline in the morning (EYE-PONY WORKER) to steady your nerves or to [...] Description 08/20/2025 12:00 PM EST Office Visit [facility] [place] [address], [address] [place] [address] Kaiden Harvey MD [address] [place] [address] 11/06/2025 9:15 AM EST Office Visit [facility] [address] [facility] [address] [facility], [address] [place] [address] Joanna Bartlett MD [address] [place] [address] documented as of this encounter Visit Diagnoses Not on filedocumented in this encounter Additional Health Concerns Assessment Noted Time A Body Mass Index follow-up plan has been documented for the patient 06/10/2025 2:59 PM EDT documented as of this encounter Care Teams Mill Worker Relationship Specialty Start Date End Date Rosemarie Riley APRN [address] [place] [address] PCP - General 04/02/25 Haydee Mccloud Saturator Hide Mill Worker 06/03/25 06/25/25 Baylee Gracia, RN Registered Nurse 06/12/25 documented as of this encounter
--- OUTSIDE RECORDS SUMMARY | 2025-07-29 12:08 | XMS_ITS | Clinical Summary ---
Author Organization [facility] Address [address] [place] [address] Care Team Providers Care Home Service Demonstrator Name Role Phone Osmani Becker MD Primary Care Provider [phone] Allergies Active Allergy Reactions Criticality Noted Date [...] HEPATITIS C SCREENING Completed 06/24/2024, 024 Insurance [facility] [place] Care Teams Home Service Demonstrator Relationship Specialty Start Date End Date Osmani Becker MD [address] [facility] [address] [place] [address] PCP - General Internal Medicine 07/30/16
--- OUTSIDE RECORDS SUMMARY | 2025-07-29 12:08 | XMS_ITS | Encounter Summary ---
Author Organization [facility] Address [address] [place] [address] Care Team Providers Care Toolmaker Helper Name Role Phone RosemaryRosemarie Shanel WILSON Primary Care Provider [phone] Haydee Mccloud Unavailable Unavailable Encounter Details Date [...] any time in the past 12 m [facility], were you homeless or living in a group home (including now)? No 06/03/2025 [facility] Utilities Answer Date Recorded In the [...] drink first t jacqueline in the morning (EYE-FARM SERVICE CONSULTANT) to steady your nerves or to [...] Description 08/20/2025 12:00 PM EST Office Visit [facility] [place] [address] [facility], [address] [place] [address] Kaiden Harvey MD [address] [facility] [address] [place] [address] 11/06/2025 9:15 AM EST Office Visit [facility] [place] [address], [address] [place] [address] oJanna Bartlett MD [address] [facility] [address] [place] [address] documented as of this encounter Visit Diagnoses Not on filedocumented in this encounter Additional Health Concerns Assessment Noted Time A Body Mass Index follow-up plan has been documented for the patient 06/10/2025 2:59 PM EDT documented as of this encounter Care Teams Toolmaker Helper Relationship Specialty Start Date End Date Rosemarie Riley APRN [address] [place] [address] PCP - General 04/02/25 Haydee Mccloud Dust Control Engineer Mortgage Protection Sales 06/03/25 06/25/25 documented as of this encounter
--- OUTSIDE RECORDS SUMMARY | 2025-07-29 12:08 | XMS_ITS | Encounter Summary ---
Author Organization [facility] Address [address] [place] [address] Care Team Providers Care Accounting Methods Analyst Name Role Phone oRsemaryRosemarie Shanel WILSON Primary Care Provider [phone] Haydee Mccloud Unavailable Unavailable Encounter Details Date [...] in a correction (including now)? No 06/03/2025 [facility] Utilities Answer Date Recorded In the past [...] first t jacqueline in the morning (EYE-RETAIL STORE ASSOCIATE) to steady your nerves or to [...] Description 08/20/2025 12:00 PM EST Office Visit [facility] [place] [address] [facility], [address] [place] [address] Kaiden Harvey MD [address] [facility] [address] [place] [address] 11/06/2025 9:15 AM EST Office Visit [facility] [address], [address] [place] [address] Joanna Bartlett MD [address] [facility] [address] [place] [address] documented as of this encounter Visit Diagnoses Not on filedocumented in this encounter Additional Health Concerns Assessment Noted Time A Body Mass Index follow-up plan has been documented for the patient 06/10/2025 2:59 PM EDT documented as of this encounter Care Teams Accounting Methods Analyst Relationship Specialty Start Date End Date Rosemarie Riley APRN [address] [place] [address] PCP - General 04/02/25 Haydee Mccloud Associate Technician Customer Support Coordinator 06/03/25 06/25/25 documented as of this encounter
--- OUTSIDE RECORDS SUMMARY | 2025-07-29 12:08 | XMS_ITS | Encounter Summary ---
Author Organization [facility] Address [address] [place] [address] Care Team Providers Care Fabric Separator Operator Name Role Phone RosemaryRosemarie Shanel WILSON Primary Care Provider [phone] Haydee Mccloud Unavailable Unavailable Baylee Gracia RN Unavailable Unavailable Reason for Visit * Reason Comments TCM Encounter Details Date Type Department Care Team (Late st Contact Info) Description 06/12/2025 Patient Outreach [facility] [address], [address] [place] [address] Baylee Gracia, RN TCM Social [...] drink first t jacqueline in the morning (EYE-DELIVERY STOCK CLERK) to steady your nerves or to [...] Description 08/20/2025 12:00 PM EST Office Visit [facility] [place] [address] [facility], [address] [place] [address] Kaiden Harvey MD [address] [facility] [address] [place] [address] 11/06/2025 9:15 AM EST Office Visit [facility] [address], [address] [place] [address] Joanna Bartlett MD [address] [facility] [address] [place] [address] documented as of this encounter Visit Diagnoses Not on filedocumented in this encounter Additional Health Concerns Assessment Noted Time A Body Mass Index follow-up plan has been documented for the patient 06/10/2025 2:59 PM EDT documented as of this encounter Care Teams Fabric Separator Operator Relationship Specialty Start Date End Date Rosemarie Riley APRN NPI: [id number] [place] [address] PCP - General 04/02/25 Haydee Mccloud Earth Moving Machine Operator Hone Operator 06/03/25 06/25/25 Baylee Gracia, RN Registered Nurse 06/12/25 documented as of this encounter
--- OUTSIDE RECORDS SUMMARY | 2025-07-29 12:08 | XMS_ITS | Encounter Summary ---
Author Organization [facility] Address [address] [place] [address] Care Team Providers Care Rug Clipper Name Role Phone RileyRosemarie beach Shanel WILSON Primary Care Provider [phone] Haydee Mccloud Unavailable Unavailable Baylee Gracia RN Unavailable Unavailable Reason for Visit * Reason Comments HRCM Encounter Details Date Type Department Care Team (Late st Contact Info) Description 06/25/2025 Patient Outreach [facility] [address], [address] [place] [address] Baylee Gracia, RN HRCM Social [...] and Family Not on file 06/25/2024 Attends Roman [employer] Services Not on file 06/25 Active Member [...] any time in the past 12 m [facility], were you homeless or living in a detention (including now)? No 06/03/2025 [facility] Utilities Answer Date Recorded In the [...] drink first t jacqueline in the morning (EYE-RECENTERER) to steady your nerves or to get [...] Baylee Gracia - 06/25/2025 11:42 AM EDT [facility] Inpatient Review Reason for Note: Inpatient Admission Review Patient is at [facility] in [place] per Son. [facility] Nurse: Baylee Gracia 06/25/2025 11:43 AM documented in this encounter Plan of Treatment Upcoming Encounters Date Type Department Care Team (Late st Contact Info) Description 08/20/2025 12:00 PM EST Office Visit [facility] [place] [address] [facility], [address] [place] [address] Kaiden Harvey MD [address] [facility] [address] [place] [address] 11/06/2025 9:15 AM EST Office Visit [facility] [address] [facility], [address] [place] [address] Joanna Bartlett MD [address] [facility] [address] [place] [address] documented as of this encounter [...] documented as of this encounter Care Teams Rug Clipper Relationship Specialty Start Date End Date Rosemarie Riley APRN [address] [place] [address] PCP - General 04/02/25 Haydee Mccloud Traveling Construction Superintendent Watcher [employer]omat [employer] 06/03/25 06/25/25 Baylee Gracia RN Registered Nurse 06/12/25 documented as of this encounter
--- OUTSIDE RECORDS SUMMARY | 2025-07-29 12:08 | XMS_ITS | Encounter Summary ---
Author Organization Healthcare Address [address] [place] [address] Care Team Providers Care Tire Trucker Name Role Phone RileyRosemarie beach Shanel WILSON Primary Care Provider [phone] Haydee Mccloud Unavailable Unavailable Baylee Gracia RN Unavailable Unavailable Encounter Details Date Type Department Care Team (Late st Contact Info) Description 06/17/2025 Orders Only [facility] Medicine Virtual Dept. [address] [place] [address] Mayra Rogers MD [address] [place] [id number] Social History Tobacco Use Types Packs/Day Years [...] any time in the past 12 m [facility], were you homeless or living in a fdc (including now)? No 06/03/2025 [facility] Utilities Answer Date Recorded In the past 12 months has th e [employer], gas, oil, or water company threatened to [...] drink first t jacqueline in the morning (EYE-LOGGING TRACTOR OPERATOR) to steady your nerves or to [...] Description 08/20/2025 12:00 PM EST Office Visit [facility] [place] [address] [facility], [address] [place] [address] Kaiden Harvey MD [address] [facility] [address] [place] [address] 11/06/2025 9:15 AM EST Office Visit [facility] [address], [address] [place] [address] Joanna Bartlett MD [address] [facility] [address] [place] [address] documented as of this encounter Visit Diagnoses Not on filedocumented in this encounter Additional Health Concerns Assessment Noted Time A Body Mass Index follow-up plan has been documented for the patient 06/10/2025 2:59 PM EDT documented as of this encounter Care Teams Tire Trucker Relationship Specialty Start Date End Date Rosemarie Riley APRN NPI: [id number] [place] [address] PCP - General 04/02/25 Haydee Mccloud Physical Therapy Technician Vice President Sales 06/03/25 06/25/25 Baylee Gracia, RN Registered Nurse 06/12/25 documented as of this encounter
--- OUTSIDE RECORDS SUMMARY | 2025-07-29 12:08 | XMS_ITS | Encounter Summary ---
Author Organization [facility] Address [address] [place] [address] Care Team Providers Care Food Sampler Name Role Phone RileyRosemarie beach Shanel WILSON Primary Care Provider [phone] Baylee Gracia RN Unavailable Unavailable Reason for Visit * Reason Comments HRCM Encounter Details Date Type Department Care Team ([facility] Contact Info) Description 07/01/2025 Patient Outreach [facility] [address] [facility], [address] [place] [address] Baylee Gracia, RN HRCM Social [...] residential (including now)? No 06/03/2025 [facility] Utilities Answer Date Recorded In the [...] first t jacqueline in the morning (EYE-MANAGER ECONOMIC) to steady your nerves or to get [...] Check list dates updated. Baylee Gracia [facility] Nurse Population Health documented in this encounter Plan of Treatment Upcoming Encounters Date Type Department Care Team (Late st Contact Info) Description 08/20/2025 12:00 PM EST Office Visit [facility] [place] [address] [facility], [address] [place] [address] Kaiden Harvey MD [address] [facility] [address] [place] [address] 11/06/2025 9:15 AM EST Office Visit [facility] [address] [facility], [address] [place] [address] Joanna Bartlett MD [address] [facility] [address] [place] [address] documented as of this encounter [...] as of this encounter Care Teams Food Sampler Relationship Specialty Start Date End Date Rosemarie Riley APRN [address] [place] [address] PCP - General 04/02/25 Baylee Gracia RN Registered Nurse 06/12/25 documented as of this encounter
--- OUTSIDE RECORDS SUMMARY | 2025-07-29 12:08 | XMS_ITS | Encounter Summary ---
Author Organization [facility] Address [address] [place] [address] Care Team Providers Care Ems Educator Name Role Phone RosemaryRosemarie Shanel WILSON Primary Care Provider [phone] Haydee Mccloud Unavailable Unavailable Encounter Details Date [...] in the past [address] [facility], were you homeless or living in a snf (including now)? No 06/03/2025 [facility] [...] drink first t jacqueline in the morning (EYE-SOUNDING DEVICE OPERATOR) to steady your nerves or to [...] Description 08/20/2025 12:00 PM EST Office Visit [facility] [place] [address] [facility] [address] [facility], [address] [place] [address] Kaiden Harvey MD [address] [facility] [address] [place] [address] 11/06/2025 9:15 AM EST Office Visit [facility] [address], [address] [place] [address] Joanna Bartlett MD [address] [facility] [address] [place] [address] documented as of this encounter Visit Diagnoses Not on filedocumented in this encounter Additional Health Concerns Assessment Noted Time A Body Mass Index follow-up plan has been documented for the patient 06/10/2025 2:59 PM EDT documented as of this encounter Care Teams Ems Educator Relationship Specialty Start Date End Date Rosemarie Riley APRN [address] [place] [address] PCP - General 04/02/25 Haydee Mccolud Scheduling Coordinator Test Puller 06/03/25 06/25/25 documented as of this encounter
--- OUTSIDE RECORDS SUMMARY | 2025-07-29 12:08 | XMS_ITS | Encounter Summary ---
Author Organization [facility] Address [address] [place] [address] Care Team Providers Care Garbage Truck Helper Name Role Phone RileyRosemarie beach Shanel WILSON Primary Care Provider [phone] Haydee Mccloud Unavailable Unavailable Baylee Gracia RN Unavailable Unavailable Reason for Visit * Reason Comments TCM Encounter Details Date Type Department Care Team (Late st Contact Info) Description 06/13/2025 Patient Outreach [facility] [address], [address] [place] [address] Baylee Gracia, RN TCM Social [...] in a fdc (including now)? No 06/03/2025 [facility] [...] drink first t jacqueline in the morning (EYE-RETURNED ITEM CLERK) to steady your nerves or to [...] Description 08/20/2025 12:00 PM EST Office Visit [facility] [place] [address] [facility], [address] [place] [address] Kaiden Harvey MD [address] [facility] [address] [place] [address] 11/06/2025 9:15 AM EST Office Visit [facility] [address], [address] [place] [address] Jaonna Bartlett MD [address] [facility] [address] [place] [address] documented as of this encounter Visit Diagnoses Not on filedocumented in this encounter Additional Health Concerns Assessment Noted Time A Body Mass Index follow-up plan has been documented for the patient 06/10/2025 2:59 PM EDT documented as of this encounter Care Teams Garbage Truck Helper Relationship Specialty Start Date End Date Rosemarie Riley APRN [address] [place] [address] PCP - General 04/02/25 Haydee Mccloud Direct Marketing Intern Merchandising Stock Associate 06/03/25 06/25/25 Baylee Gracia, RN Registered Nurse 06/12/25 documented as of this encounter
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
--- OUTSIDE RECORDS SUMMARY | 2025-07-29 12:08 | XMS_ITS | Encounter Summary ---
Author Organization [facility] Address [address] [place] [address] Care Team Providers Care Software Lead Name Role Phone RosemaryRosemarie Shanel WILSON Primary Care Provider [phone] Haydee Mccloud Unavailable Unavailable Reason for Visit * Reason Comments Link Encounter Details Date Type Department Care Team ([facility] st Contact Info) Description 06/03/2025 Patient Outreach [facility] [address] [place] [address] Haydee Mccloud Link Social History [...] any time in the past 12 m [facility], were you homeless or living in a fci (including now)? No 06/03/[address] [facility] [...] drink first t jacqueline in the morning (EYE-ENGINEER TECHNICAL STAFF) to steady your nerves or to get [...] No 025 8:00 AM EDT Alex Merino, HCAO 2. Non-Specific Active Suici ludwin Thoughts (Past [...] son by phone. Haydee Mccloud LINK Navigator [email or web address] documented in this encounter Plan of Treatment Upcoming Encounters Date Type Department Care Team (Late st Contact Info) Description 08/20/2025 12:00 PM EST Office Visit [facility] [place] [address] [facility], [address] [place] [address] Kaiden Harvey MD [address] [facility] [address] [place] [address] 11/06/2025 9:15 AM EST Office Visit [facility] [place] [address] , [address] [place] [address] Joanna Bartlett MD [address] [place] [address] documented as of this encounter Visit Diagnoses Not on filedocumented in this encounter Additional Health Concerns Assessment Noted Time A Body Mass Index follow-up plan has been documented for the patient 06/10/2025 2:59 PM EDT documented as of this encounter Care Teams Software Lead Relationship Specialty Start Date End Date Rosemarie Riley APRN [address] [place] [address] PCP - General 04/02/25 Haydee Mccloud Heavy Duty Diesel Mechanic Nurse Orthopaedic 06/03/25 06/25/25 documented as of this encounter
--- OUTSIDE RECORDS SUMMARY | 2025-07-29 12:08 | XMS_ITS | Encounter Summary ---
Author Organization Healthcare Address [address] [place] [address] Care Team Providers Care Veneer Repairer Machine Name Role Phone RileyRosemarie beach Shanel WILSON Primary Care Provider [phone] Haydee Mccloud Unavailable Unavailable Baylee Gracia RN Unavailable Unavailable Encounter Details Date Type Department Care Team (Late st Contact Info) Description 06/23/2025 Orders Only External Location [address] [place] [phone] Familia Shabazz, DO [address] [place], [place] [id number] Social History Tobacco Use Types Packs/Day Years Used Date Smoking Tobacco: Every Day Alcohol Use Standard Drinks/Week Comments No 0 (1 standard drink = 0.6 oz pur e alcohol) Social Connection and Isolation Panel Answer Date Recorded Frequency of Communication with Friends and Fami ly Not on file 06/25/2024 Frequency of Social Gatherin gs with Friends and Family Not on file 06/25/2024 Attends Anabaptist Services Not on file 06/25 Active Member [...] any time in the past 12 m [facility], were you homeless or living in a chcf (including now)? No 06/03/2025 [facility] Utilities Answer Date Recorded In the past [...] drink first t jacqueline in the morning (EYE-PHYSICIAN PRACTICE CONSULTANT) to steady your nerves or to [...] Description 08/20/2025 12:00 PM EST Office Visit [facility] [place] [address], [address] [place] [address] Kaiden Harvey MD [address] [place] [address] 11/06/2025 9:15 AM EST Office Visit [facility] [address] [facility], [address] [place] [address] Joanna Bartlett MD [address] [place] [address] documented as of this encounter [...] documented as of this encounter Care Teams Veneer Repairer Machine Relationship Specialty Start Date End Date Rosemarie Riley, STEVE [address] [place] [address] PCP - General 04/02/25 Haydee Mccloud Supervisor Dairy Sanitation Pillow Agent 06/03/25 06/25/25 Baylee Gracia, RN Registered Nurse 06/12/25 documented as of this encounter
--- NOTE | 2025-07-29 12:26 | XR_ITS ---
FINAL REPORT TECHNIQUE: Single view chest CLINICAL HISTORY: recurrent pleural effusion/CAP/SOA COMPARISON: 07/25/2025 FINDINGS: A single view of the chest was obtained. The heart is enlarged. There is a moderate right pleural effusion with possible moderate right lower lobe and right middle lobe consolidation. There is no pneumothorax. IMPRESSION: Interval development of right basilar density likely due to pleural effusion and or consolidation. Consider CT for further evaluation. Reviewed, Interpreted and Dictated by Quique Cook MD Transcribed by Sissy Zamora Authenticated and [facility]
--- NOTE | 2025-07-29 12:29 | PC.NURSE ---
Called Mikel Diaz to have her discharge summary sent over from [facility] after her visit last date
--- NOTE | 2025-07-29 12:29 | [facility].EDCP ---
Discharge Plan Disposition Patient Disposition: Xfer Short-Term Hosp Prescriptions Prescriptions: No Action levothyroxine 75 mcg capsule 75 mcg PO DAILY isosorbide mononitrate 60 mg tablet extended release 24 hr 60 mg PO DAILY clopidogrel 75 mg tablet 75 mg PO DAILY pantoprazole 20 mg tablet,delayed release (DR/EC) 20 mg PO DAILY aspirin 325 mg tablet 325 mg PO DAILY ezetimibe 10 mg tablet 10 mg PO DAILY oxycodone-acetaminophen 10-325 mg tablet 1 tab PO Q6H PRN (Reason: pain) Qty: 120 0RF albuterol sulfate 90 mcg/actuation HFA aerosol inhaler 2 puff inhalation Q6H PRN (Reason: shortness of breath or wheezing) Qty: 8.5 1RF hydralazine 50 mg tablet 50 mg PO Q3H carvedilol 25 mg Tablet 25 mg PO BID Rx Instructions: must administer with a meal/food Referrals Follow up/Referrals: Provider,Referral, MD [Primary Care Provider, Medical] - See instructions Clinical Impressions Clinical Impression: Pleural effusion, Dependence on renal dialysis Stand Alone Forms Stand Alone Forms: Transfer Record - ED Print Language Print Language: Ugandan Discharge ED Provider: Randall Dickens HPI General Chief Complaint: Shortness of Breath/Dyspnea Stated Complaint: SOA Time Seen by Provider: 07/29/25 11:57 Mode of Arrival: Wheelchair Source of Information: Patient and Relative Description of Symptoms (Recalled from ER Triage Doc. by RN): PT presents with SOB, she was just released from the hospital in [place] yesterday with double pneumonia. Pt family at bedside states she has been in and out of the hospital for the same thing over the last few weeks. Baseline 02 is 2L NC @home, pt arrived on 4L. Pt does have a fistula on her left arm, last dialysis was yesterday, tomorrow is her next appointment. Pt states she has an open wound on her left sacral area that is dressed, unable to visiualize wound at this time. History of Present Illness HPI narrative: Patient is a 55-year-old female with past medical history of ESRD on Tuesday dialysis, coronary artery disease, diabetes, hypertension, on 2 L nasal cannula at baseline who presents emergency department for evaluation of shortness of breath. Patient was previously admitted with pleural effusion [facility] requiring thoracentesis subsequently discharged only mated out of the hospital 1 day when she re-presented to us was appropriately worked up by Dr. Lee and subsequently transferred to [place] where she underwent repeat thoracentesis and dialysis. She was diagnosed reportedly with double pneumonia and was deemed appropriate for discharge yesterday. Since discharge she has had increasing shortness of breath. She did get dialysis on Tuesday and has dialysis tomorrow. No chest pain reported. She is anuric at baseline. No other acute complaints at this time. Son at bedside states that she has anxiety which may be contributing to this. They have a good family care system at home in terms of helping her complete her activities of daily living no trauma. Please note that above description of symptoms, in this electronic medical record under categorization of recalled from ER triage doctor by RN are reflective of an initial nursing assessment, however, is not reflective of my full history and physical exam that was personally taken and clarified. Consequentially, this preceding description of symptoms, which may include the patient's categorized chief complaint in the EMR, do not reflect my personal clinical impression, and the ultimate description of history of present illness and patient stated complaints should be deferred to this section of the note. Unless stated otherwise or congruent with this section of the note, additional signs, symptoms, or incongruence should be interpreted as inaccurate with my clinical impression. Related Data Home Medications ?Medication ?Instructions ?Recorded ?Confirmed aspirin 325 mg tablet 325 mg PO DAILY 03/07/24 06/18/25 clopidogrel 75 mg tablet 75 mg PO DAILY 03/07/24 06/23/25 ezetimibe 10 mg tablet 10 mg PO DAILY 03/07/24 06/23/25 isosorbide mononitrate 60 mg 60 mg PO DAILY 03/07/24 06/23/25 tablet,extended release 24 hr levothyroxine 75 mcg capsule 75 mcg PO DAILY 03/07/24 06/23/25 pantoprazole 20 mg tablet,delayed 20 mg PO DAILY 03/07/24 06/23/25 release hydralazine 50 mg tablet 50 mg PO Q3H 04/13/24 06/23/25 carvedilol 25 mg tablet 25 mg PO BID 04/15/24 06/18/25 Previous Rx's ?Medication ?Instructions ?Recorded albuterol sulfate 90 mcg/actuation 2 puff inhalation Q6H PRN 06/18/25 aerosol inhaler shortness of breath or wheezing #8.5 grams oxycodone-acetaminophen 10 mg-325 1 tab PO Q6H PRN pain #120 tabs 06/18/25 mg tablet Allergies Allergy/AdvReac Type Severity Reaction Status Date / Time insulin glargine (From Allergy Intermediate Numbness Verified 06/18/25 15:13 Basaglar KwikPen U-100 Insulin) lisinopril (LISINOPRIL) Allergy Intermediate I-ITCHING Verified 06/18/25 15:13 [facility] Disclaimer: The information contained in this section may have been updated after the patient was seen, as this information can be updated by other users. Medical History HTN (hypertension) Social History Smoking Status: Former smoker alcohol intake: never current occupational status: other Travel in the last 8 weeks?: None Have you lived/traveled outside [place] in past 30 days?: No Contact w/someone who lives/traveled outside US past 30 days?: No Exposure to someone with infectious disease in past 14 days?: No Do you have a fever (greater than 100.4 F or 38 C)?: No Have you tested positive for COVID-19?: No Exposed to someone with COVID-19 in past 14 days?: No Do you have a sore throat?: No Do you have a cough?: No Do you have any weakness?: No Do you have any diarrhea?: No Are you experiencing any unusual bleeding?: No Do you have any muscle aches/pain?: No Do you have any abdominal pain?: No Are you experiencing loss of taste or smell?: No Other Medical History Have you received the Pneumonia Vaccine: No ROS Obtained: Yes Systems reviewed as appropriate & no additional complaints except as documented Physical Exam General General appearance: alert Comment: Chronically ill-appearing, nasal cannula in place Head Head exam: atraumatic and normocephalic Eye Eye exam: Present PERRL and EOMI ENT ENT exam: Present mucous membranes moist Neck Neck exam: Present normal inspection Chest Chest inspection: Present normal inspection and symmetric chest wall rise Respiratory Respiratory exam: Present normal lung sounds bilaterally; Absent respiratory distress, wheezes or accessory muscle use Cardiovascular Cardiovascular exam: Present regular rate and normal rhythm Abdominal Exam Abdominal exam: Present soft; Absent tenderness Extremities Exam Extremities exam: Present normal inspection Neurological Exam Neurological exam: Present alert Psychiatric Psychiatric exam: Present normal affect Skin Skin exam: Present warm and dry HEART Score HEART Score HEART Score assessment performed?: Yes History (anamnesis): Slightly suspicious ECG: Normal Age: 45-65 years Risk factors: 1-2 risk factors Troponin: 1-3x normal limit HEART Score: 3 Critical Care Critical Care Time Critical Care Time: No Medical Decision Making Skyler Inquiry Pt receiving controlled substance: No Vital Signs Vital Signs: 07/29/25 11:52 07/29/25 12:00 07/29/25 12:07 Temperature 99.0 F Temperature Source Temporal Artery Scan Pulse Rate 65 Pulse Rate [Right] 65 Respiratory Rate 22 Blood Pressure 164/67 H Blood Pressure [Right Arm] 164/67 H Blood Pressure Mean [Right Arm] 99 Blood Pressure Source [Right Arm] Automatic Cuff Blood Pressure Position [Right Arm] Sitting 02 Sat by Pulse Oximetry 99 97 99 Oxygen Delivery Method Nasal Cannula Nasal Cannula Oxygen Flow Rate (LPM) 4 4 Lab Data Labs: Lab Results 07/29/25 12:08: WBC 7.8, RBC 3.55 L, Hgb 10.6 L, Hct 33.5 L, MCV 94.4, MCH 29.9, MCHC 31.6 L, RDW 17.3, Plt Count 84 L, MPV 12.4 H, Neut % (Auto) 79.2, Lymph % (Auto) 9.9 L, [place] % (Auto) 7.7, Eos % (Auto) 1.7, Baso % (Auto) 0.1, Neut # (Auto) 6.2, Lymph # (Auto) 0.8, [place] # (Auto) 0.6, Eos # (Auto) 0.1, Baso # (Auto) 0.0, VBG pH 7.32, VBG pCO2 41.1, VBG pO2 73.0 H, VBG HCO3 20.8 L, VBG Total CO2 22.1 L, VBG O2 Saturation 94.1 H, VBG Base Excess -5.2 L, VBG Lactic Acid 1.6, Sodium 130 L, Potassium 4.6, Chloride 95 L, Carbon Dioxide 20 L, Anion Gap 19.6 H, BUN 77 H, Creatinine 2.90 H, Estimated Creat Clear 19, Estimated GFR 17 L*, Est GFR ( Amer) 20 L, Glucose 243 H, Calcium 7.6 L, Magnesium 1.6, Total Bilirubin 0.7, AST 26, ALT 26, Alkaline Phosphatase 221 H, Troponin I 0.07 H, Total Protein 6.9, Albumin 3.5, Globulin 3.4 H, Albumin/Globulin Ratio 1.0 L 07/29/25 12:43: Chlamy pneumoniae PCR Not detected, Adenovirus (PCR) Not detected, B. pertussis DNA (PCR) Not detected, Coronavirus OC43 (PCR) Not detected, Coronavirus HKU1 (PCR) Not detected, Coronavirus 229E (PCR) Not detected, SARS-CoV-2 (PCR) Not detected, Coronavirus NL63 (PCR) Not detected, Human Metapneumovir PCR Not detected, Influenza A (H1) PCR Not detected, Influ A (H1N1/09) PCR Not detected, Influenza A (H3) PCR Not detected, Influenza Type A (PCR) Not detected, Influenza Type B (PCR) Not detected, M. pneumoniae (PCR) Not detected, Parainfluenza 1 (PCR) Not detected, Parainfluenza 2 (PCR) Not detected, Parainfluenza 3 (PCR) Not detected, Parainfluenza 4 (PCR) Not detected, RSV (PCR) Not detected, Entero/Rhino (PCR) Not detected 07/29/25 12:08 07/29/25 12:08 Response Orders (Tests/Meds): ED MEDICATIONS Discontinued Medications Generic Name Dose Route Start Last Admin Trade Name Freq PRN Reason Stop Dose Admin Ceftriaxone Sodium 1 gm/ 50 mls @ 100 mls/hr 07/29/25 12:27 07/29/25 13:22 Sodium Chloride IV 07/29/25 12:56 Infused ONCE ONE Infusion Azithromycin 500 mg/ Sodium 250 mls @ 250 mls/hr 07/29/25 12:28 07/29/25 14:31 Chloride IV 07/29/25 12:29 Infused ONCE ONE Infusion ORDERS Category Date Time Status CXR --portable [XR chest portable] Stat Exams 07/29/25 12:26 Completed CBC w/Auto Diff [Complete Blood Count Auto Diff] Stat Lab 07/29/25 12:08 Completed CMP [Comprehensive Metabolic Panel] Stat Lab 07/29/25 12:08 Completed Full Resp Panel w/COVID ([facility]) Routine Lab 07/29/25 12:43 Completed MG [Magnesium] Stat Lab 07/29/25 12:08 Completed Trop I [Troponin I] Stat Lab 07/29/25 12:08 Completed Troponin I Q3H Lab 07/29/25 15:30 Ordered Troponin I Q3H Lab 07/29/25 18:30 Ordered VBG [Venous Blood Gas] Stat RT 07/29/25 12:08 Completed EKG Request [ECG Request] Stat Y 07/29/25 12:26 Ordered ECG Data Tracing #1: ECG Narrative: Independently interpreted by me rate is 63, rhythm is regular, axis is rightward deviated, no ST elevation in anatomical contiguous leads, QTc 440 MDM Narrative Medical Decision Narrative: In summary patient is a 55-year-old female with past medical history described above who presents emergency department for evaluation of shortness of breath. Patient is hemodynamically stable and nontoxic-appearing upon arrival, appearing chronically ill, afebrile. Differential includes recurrent pleural effusion, chronic dyspnea from her dialysis dependent state and recently diagnosed respiratory infection, metabolic derangement, among others. She does not have any overt tachypnea and lungs sound relatively clear with referred breath sounds from upper airway. Workup in totality will be conducted with hematologic labs VBG chest x-ray EKG troponins. No initial interventions are indicated. X-ray informally interpreted by me, large opacities across her right hemothorax consistent with recurrent large pleural effusion. Patient does not have any critical tachypnea which would require emergent chest tube placement. Hematologic labs reviewed by me as no significant leukocytosis, chronic anemia that is not transfusable compensated acid-base status, hyponatremia 130, hypocalcemia 7.6 in the setting of total dialysis dependent state. There is uremia present at 77. Patient has chronic troponinemia in the setting of complete renal failure and does not have chest pain I suspect this is just a chronic elevation and not acute ACS. Hospital course patient had a thoracentesis done on 7 with 500 cc removed patient's oxygen saturation returned back to baseline without shortness of breath or chest pain lung ultrasound performed subsequently no fluid to drain and she was discharged on Augmentin renal dosing and prednisone patient was referred to hospice and palliative at that time which it does not seem she has followed up with. Patient will benefit from additional thoracentesis likely with PleurX catheter placement or some chronic draining device given that she is significantly comorbid and this is likely to recur. I discussed case with Dr. Calix at [facility] who graciously except the patient for transfer for continued evaluation at this time.
[2025-07-29 12:35] LABS: Lactate Venous 1.6 mmol/L (0.4-2.0); VBG HCO3 20.8 mmol/L (23-30); VBG PCO2 41.1 mmol/L (35-51); VBG PH 7.32 mmol/L (7.31-7.41); VBG PO2 73.0 mmol/L (28-40)
--- NOTE | 2025-07-29 12:37 | ECG_ITS ---
APPROVED REPORT Exam: Resting ECG HR:63 bpm ECG Measurements Heart Rate 63 AXES VT 131 P 54 QRSd 114 QRS 122 QT 432 T -63 QTc 440 Conclusion SINUS RHYTHM POSSIBLE RIGHT VENTRICULAR HYPERTROPHY [SOME/ALL OF: PROMINENT R IN V1, LATE TRANSITION, RAD, TONY, SSS] POSSIBLE INFERIOR MYOCARDIAL INFARCTION , OF INDETERMINATE AGE [30 ms Q WAVE IN II/aVF] ABNORMAL ECG UNCONFIRMED REPORT Electronically signed by : LARISSA EDWARDS, 07/30/2025 05:23:10
[2025-07-29 12:38] LABS: Hematocrit 33.5 % (37.0-47.0); Hemoglobin 10.6 g/dL (12.2-16.2); Immature Granulocytes % 1.4 %; Mean Corpuscular HGB Conc 31.6 g/dL (31.8-35.4); Mean Corpuscular Hemoglobin 29.9 pg (27.0-31.2); Mean Corpuscular Volume 94.4 fl (81-99); Nucleated Red Blood Cells % 0 %; Platelet Count 84 K/mm3 (142-424); Red Blood Count 3.55 M/mm3 (4.20-5.40); Red Cell Distribution Width-SD 59.6 fL; White Blood Count 7.8 K/mm3 (4.8-10.8)
--- NOTE | 2025-07-29 12:40 | PC.NURSE ---
MD does not want blood cultures drawn
[2025-07-29 12:48] LABS: Adenovirus,PCR Not Detected (NotDetected); Chlamydophila Pneumoniae, PCR Not Detected (NotDetected); Coronavirus 19, PCR Not Detected (NotDetected); Coronovirus HKU1,PCR Not Detected (NotDetected); Influenza A, PCR Not Detected (NotDetected); Influenza AH1, 2009 Not Detected (NotDetected); Influenza AH1, PCR Not Detected (NotDetected); Influenza AH3,PCR Not Detected (NotDetected); Influenza B, PCR Not Detected (NotDetected); Mycoplasma Pneumoniae, PCR Not Detected (NotDetected); Parainfluenza 1, PCR Not Detected (NotDetected); Parainfluenza 2, PCR Not Detected (NotDetected); Parainfluenza 3, PCR Not Detected (NotDetected); Parainfluenza 4, PCR Not Detected (NotDetected)
[2025-07-29 12:57] LABS: Magnesium 1.6 mg/dl (1.6-2.3)
[2025-07-29 12:58] LABS: Alanine Aminotransferase 26 U/L (12-78); Albumin Level 3.5 g/dl (3.5-5.0); Albumin/Globulin Ratio 1.0 (1.1-1.8); Alkaline Phosphatase 221 U/L (38-126); Anion Gap 19.6 mEq/L (5-15); Aspartate Amino Transferase 26 U/L (14-36); Bilirubin,Total 0.7 mg/dl (0.2-1.3); Blood Urea Nitrogen 77 mg/dl (7-17); Calcium 7.6 mg/dl (8.4-10.2); Carbon Dioxide 20 mmol/L (22.0-30.0); Chloride 95 mmol/L (98-107); Creatinine Clearance Estimated 19 mL/min (50-200); Creatinine,Serum 2.90 mg/dl (0.52-1.04); Estimated Glomerular Filt Rate 17 ml/min (>60); GFR (African American) 20 ML/MIN (>60); Globulin 3.4 g/dL (1.3-3.2); Glucose 243 mg/dl (74-100); Potassium 4.6 mmoL/L (3.5-5.1); Sodium 130 mmol/L (136-145); Total Protein,Serum 6.9 g/dl (6.3-8.2)
[2025-07-29] MEDS: CEFTRIAXONE 1 GM 1 GM in 0.9 % SODIUM CHLORIDE 50 ML IV (13:02)
[2025-07-29 13:10] LABS: Troponin I 0.07 ng/ml (0.00-0.034)
--- NOTE | 2025-07-29 13:11 | PC.NURSE ---
Called [facility] back to see if the discharge summary had been faxed and they said it didnt go through, advised that they would try iut again
[2025-07-29] MEDS: AZITHROMYCIN 500 MG in 0.9 % SODIUM CHLORIDE 250 ML 250 MG IV (13:22)
--- NOTE | 2025-07-29 13:42 | PC.NURSE ---
Called [facility] transfer [facility] to see about getting this pt transferred to [facility] for Pleural effusion that needs to be drained and also will need dialysis. Dr Dickens is speaking with the Pulmonolgy doctor at this time.
--- NOTE | 2025-07-29 13:56 | PC.NURSE ---
[facility] Pulmonary doctor Dr Tello was speaking with Dr Dickens at this time
--- NOTE | 2025-07-29 14:36 | PC.NURSE ---
spoke with [facility]. pt accepted by Dr. Vazquez
[2025-07-29 15:45] VITALS: BP 158/58; PULSE 78; RESP 17; TEMP 36.6; O2SAT 97
== END 2025-07-29 15:47 | disposition short-term general hospital (02) ==
PROVIDERS: Emergency Provider Emergency Medicine
DX: J90 Pleural effusion, not elsewhere classified (principal); R06.02 Shortness of breath; N18.6 End stage renal disease; E87.1 Hypo-osmolality and hyponatremia; E11.65 Type 2 diabetes mellitus with hyperglycemia; E11.22 Type 2 diabetes mellitus with diabetic chronic kidney disease; I12.0 Hypertensive chronic kidney disease with stage 5 chronic kidney disease or end stage renal disease; J44.9 Chronic obstructive pulmonary disease, unspecified; Z87.891 Personal history of nicotine dependence; Z99.2 Dependence on renal dialysis
CPT/HCPCS: 0223U; 71045; 80053; 82803; 83735; 84484; 85025; 93005; 96365; 96375; 99285; J0456; J0696; J7050